=== PATIENT | female | born 1945 | race Caucasian/White ===

== ENCOUNTER 2017-09-22 08:58 | Outpatient (RCR) | payer MEDICARE, SELFPAY ==
[2017-09-22 14:46] VITALS: BP 141/83; PULSE 102; RESP 20; TEMP 36.2; BMI 35.4
--- NOTE | 2017-09-22 18:46 | PCM.WC.HP ---
(1) Spinal stenosis of lumbar region with radiculopathy Status: Chronic Current Visit: Yes Code(s): M48.061 - Spinal stenosis, lumbar region without neurogenic claudication; M54.16 - Radiculopathy, lumbar region (2) PAD (peripheral artery disease) Status: Chronic Current Visit: Yes Code(s): I73.9 - Peripheral vascular disease, unspecified (3) Venous stasis ulcer of left lower leg with edema of left lower leg Status: Chronic Current Visit: Yes Code(s): I83.892 - Varicose veins of left lower extremity with other complications; I83.028 - Varicose veins of left lower extremity with ulcer other part of lower leg; R60.9 - Edema, unspecified (4) Venous stasis ulcer of right lower leg with edema of right lower leg Status: Chronic Current Visit: Yes Code(s): I83.891 - Varicose veins of right lower extremity with other complications; I83.018 - Varicose veins of right lower extremity with ulcer other part of lower leg; R60.9 - Edema, unspecified (5) Arthralgia Status: Chronic Current Visit: Yes Qualifiers: Joint pain location: unspecified Qualified Code(s): M25.50 - Pain in unspecified joint Code(s): M25.50 - Pain in unspecified joint (6) Myalgia Status: Chronic Current Visit: Yes Code(s): M79.1 - Myalgia (7) Mass of soft tissue of left lower extremity Status: Chronic Current Visit: Yes Code(s): R22.42 - Localized swelling, mass and lump, left lower limb Comment: left inner upper thigh - ? calciphylaxis vs. erythema nodosum vs. dermatomyositis vs. panniculitis (8) Mass of soft tissue of right lower extremity Status: Chronic Current Visit: Yes Code(s): R22.41 - Localized swelling, mass and lump, right lower limb Comment: right inner upper thigh - ? calciphylaxis vs. erythema nodosum vs. dermatomyositis vs. panniculitis (9) Type 2 diabetes mellitus Status: Chronic Current Visit: Yes Qualifiers: Diabetes mellitus complication status: with neurologic complications Diabetes mellitus complication detail: with polyneuropathy Diabetes mellitus assisted insulin use: without long term acute care registered nurse use Qualified Code(s): E11.42 - Type 2 diabetes mellitus with diabetic polyneuropathy Code(s): E11.9 - Type 2 diabetes mellitus without complications (10) Coumadin-induced coagulopathy Status: Chronic Current Visit: Yes (11) Chronic kidney disease, stage 3 Status: Chronic Current Visit: Yes History of Present Illness Date of Service: 09/22/17 Chief Complaint: Wounds/ulcers of b/l lower legs History of Wound: Di is a 71 yo female that presents for evaluation and treatment of lower extremity wounds/ulcers that have been present since June. She states that she developed swelling in her legs in April and has not been able to get this under control and in June she developed wounds/ulcers to her right leg and left leg as blisters developed and then opened. She has been seen by Dr. Pelaez, the ER and her PCP and has had several tests but the wounds/ulcers have not healed. She has had severe pain in the wounds and her legs since July. She has indurated areas on her inner thighs and across her right abdomen that are erythematous and tender. She denies being evaluated for any rheumatologic causes of these areas but does state that when she was in the ER in April that they told her that her calcium level was high and they advised her to decrease her calcium and vitamin D. She has been applying neosporin to the areas on her legs but has not been wearing compression. She tries to elevated her legs but has a lot of back pain due to her spinal stenosis. She was started on Clindamycin on 09/19/17 after being seen in the ER for her legs. She c/o severe pain out of proportion to her wounds/ulcers as well as the visualized areas of induration on her thighs and abdomen. Has tried hydrocodone-APAP and Oxycodone-APAP as given by the ER and her PCP without relief. She sees Dr. Carbajal for pain management for her spinal stenosis but has not taken any medication or needed medication for her pain in the past. Epidurals have been effective for her spinal stenosis and sciatica in the past. Denies fever or chills. Past Medical History Past Medical History: Chronic Problems Hypertension (Chronic) Type 2 diabetes mellitus (Chronic) Atrial fibrillation (Chronic) Lung nodule (Chronic) Coumadin-induced coagulopathy (Chronic) Chronic kidney disease, stage 3 (Chronic) 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 calciphylaxis vs. erythema nodosum vs. dermatomyositis vs. panniculitis Mass of soft tissue of right lower extremity (Chronic) right inner upper thigh - ? calciphylaxis vs. erythema nodosum vs. dermatomyositis vs. panniculitis Surgical History: cataract, cholecystectomy, hysterectomy, - - Cardioversion, lumpectomy, [place] fundoplication, multiple ablation procedures to heart Allergies/Adverse Reactions: Allergies amlodipine besylate [From Norvasc] Allergy (Verified 06/28/17 16:49) Unknown Shortness of breath ceftriaxone Allergy (Verified 06/28/17 16:49) Rash doxazosin mesylate [From Cardura] Allergy (Verified 06/28/17 16:49) Unknown Pt doesn't remember doxycycline Allergy (Verified 06/28/17 16:49) Unknown Pt doesn't remember enalapril maleate [From Vasotec] Allergy (Verified 06/28/17 16:49) Rash enalaprilat dihydrate [From Vasotec] Allergy (Verified 06/28/17 16:49) Rash hydroxyzine HCl [From Vistaril] Allergy (Verified 06/28/17 16:49) Rash hydroxyzine pamoate [From Vistaril] Allergy (Verified 06/28/17 16:49) Rash meperidine HCl [From Demerol] Allergy (Verified 06/28/17 16:49) Rash Sulfa (Sulfonamide Antibiotics) Allergy (Verified 06/28/17 16:49) Hives sulfamethoxazole [From Bactrim] Allergy (Verified 06/28/17 16:49) Hives trimethoprim [From Bactrim] Allergy (Verified 06/28/17 16:49) Hives Home Medications: Ambulatory Orders Medication Instructions Recorded Metformin HCl [Glucophage] 500 mg PO DAILY 09/09/15 Metoprolol Tartrate [Lopressor 12.5 mg PO BID #90 tablet 11/06/15 (beta alok)] Aspirin [Adult Low Dose Aspirin EC] 81 mg PO DAILY 03/03/17 Warfarin [Coumadin] 2 mg PO SUWETHFRSA 03/03/17 Furosemide [Lasix] 20 mg PO QODAY 06/22/17 Clindamycin [Cleocin] 300 mg PO 4X/DAY #80 capsule 09/19/17 Oxycodone HCl/Acetaminophen 1 tablet PO Q6H PRN PRN #12 tablet 09/19/17 [Percocet 5/325] - Family History Maternal No pertinent history Paternal No pertinent history Lives: Spouse/ Significant Other Smoking Status: Never smoker Tobacco Use: Non-smoker Alcohol: None Drugs: None Review of Systems Constitutional: Reports: Weakness, Fatigue. Denies: Chills, Fever, Weight Change Eyes: Denies: Pain, Vision Change HEENT: Reports: Difficulty Hearing Cardiovascular: Reports: Palpitations Respiratory: Denies: Cough, Shortness of Breath Gastrointestinal: Denies: Diarrhea, Nausea, Vomiting Genitourinary: Reports: Incontinence Musculoskeletal: Reports: Back Pain, Joint Pain, Joint stiffness, Leg Pain, Muscle pain Skin: Reports: Rash, Skin Changes, Wounds Neurological: Reports: Numbness. Denies: Focal weakness Endocrine: Denies: Heat/ Cold Intolerance, Polydipsia, Polyuria Hematologic/ Lymphatic: Reports: Easy Bruising - Physical Exam Vital Signs Temp Pulse Resp BP 97.1 F L 102 H 20 H 141/83 H 09/22/17 14:46 09/22/17 14:46 09/22/17 14:46 09/22/17 14:46 General: Alert, Oriented x3, Cooperative, No apparent distress HEENT: Atraumatic, Normocephalic Oral: Moist Mucosa Neck: Supple Lungs: Clear to auscultation Cardiovascular: No murmurs, Irregular Rate Abdomen: Soft, Obese, - - lower abdomen, indurated, erythematous soft tissue that is tender to palpation - ?panniculitis vs. calciphylaxis vs. dermatomyositis Extremities: Cool, Diminished Peripheral Pulses, Edema, Tenderness, - - indurated, erythematous subcutaneous masses b/l upper thighs Skin: Ulcer/ Wound, Rash Present Wound Measurements and Assessment WC - Nurse 1 - General Ulcer Measurement Start: 09/22/17 13:49 Freq: Status: Active Protocol: Activity Type Activity Date Activity User E-Sign Co-Sign Detail Recorded Client Recorded Date Recorded By Document 09/22/17 14:46 MW [id number] 09/22/17 15:06 MW 09/22/17 14:46 Wound Center Nurse 1 [Ulcer Assessment Protocol: WC.WD.LOC] #2 Left calf -Combined with other wound No -Current Size (cm) - Length 0.5 -Current Size (cm) - Width 0.5 -Current Size (cm) - Depth 0.1 -Total Square Cm 0.25 -Photo Taken No -Epithelialization None Present -Tunneling No -Undermining/Tunneling No -Circular Undermining No -Exudate Amt None Present (0 %) -Wound Margin Flat & Intact -Granulation Amt Small (1-33%) -Granulation Quality Red -Slough/Fibrin Yes -Necrosis Amt Small (1-33%) -Necrotic Tissue Type Adherent Slough -Structure Exposed N/A -Texture (Gabriella-wound Skin Appearance) Assessed Localized Edema -Moisture (Gabriella-wound Skin Appearance Assessed ) Dry/Scaly -Color (Gabriella-wound Skin Appearance) Assessed Rubor -Temperature (Gabriella-wound Skin No Abnormality Appearance) (Pt Warm) -Tenderness on Palpation (Gabriella-wound No Skin Appearance) -Ulcer Cleansing Rinsed/ Irrigated with Saline -Foul Odor after Cleansing No -Anesthetic Used 4% Lidocaine Solution #1 RIGHT MEDIAL LE CLUSTER -Combined with other wound No -Current Size (cm) - Length 5.5 -Current Size (cm) - Width 3.5 -Current Size (cm) - Depth 0.1 -Total Square Cm 19.25 -Date of Last Picture (Recall this 09/22/17 field) -Photo Taken Yes -Epithelialization None Present -Tunneling No -Undermining/Tunneling No -Circular Undermining No -Exudate Amt None Present (0 %) -Wound Margin Flat & Intact -Granulation Amt None Present (0 %) -Granulation Quality N/A -Slough/Fibrin No -Necrosis Amt Large (67-100%) -Necrotic Tissue Type Adherent Slough -Structure Exposed N/A -Texture (Gabriella-wound Skin Appearance) Assessed Localized Edema -Moisture (Gabriella-wound Skin Appearance Assessed ) Dry/Scaly -Color (Gabriella-wound Skin Appearance) No Abnormality Rubor -Temperature (Gabriella-wound Skin No Abnormality Appearance) (Pt Warm) -Tenderness on Palpation (Gabriella-wound No Skin Appearance) -Ulcer Cleansing Rinsed/ Irrigated with Saline -Foul Odor after Cleansing No -Anesthetic Used 4% Lidocaine Solution [Edema Assessment] -Lower Limb Edema Present Yes -Right Calf (cm) 38.9 -Right Ankle (cm) 23.6 -Left Calf (cm) 39.0 -Left Ankle (cm) 24.0 WC - Nurse 2 - General Ulcer CM Notes Start: 09/22/17 13:49 Freq: Status: Active Protocol: Activity Type Activity Date Activity User E-Sign Co-Sign Detail Recorded Client Recorded Date Recorded By Document 09/22/17 16:23 TM [id number] 09/22/17 16:34 TM Document 09/22/17 16:55 TM [id number] 09/22/17 16:59 TM 09/22/17 09/22/17 16:23 16:55 Wound Center Nurse 2 [Procedure/Treatment] #2 Left calf -Time 16:55 -Correct Patient Yes -Correct Side, Site, Position Yes -Correct Procedure Yes -Procedure Performed Yes -Post Debridement Size (cm) - Length 0.5 -Post Debridement Size (cm) - Width 0.5 -Post Debridement Size (cm) - Depth 0.1 -Total Square Cm 0.25 -Wound/Ulcer Outcome Not Healed -Ulcer Cleansing Rinsed/ Irrigated with Saline -Foul Odor after Cleansing No -Bioengineered Tissue No -Cetacaine [place] No -Topical Lidocaine (%) 5 -Bleeding Controlled with Pressure -Other No debridement today -Treatment Response Procedure Tolerated Well #1 RIGHT MEDIAL LE CLUSTER -Time 16:25 16:56 -Correct Patient Yes Yes -Correct Side, Site, Position Yes Yes -Correct Procedure Yes Yes -Procedure Performed Yes Yes -Type of Procedure Debridement Debridement -Clinical Debridement Subcutaneous Subcutaneous -Post Debridement Size (cm) - Length 5.6 5.6 -Post Debridement Size (cm) - Width 3.6 3.6 -Post Debridement Size (cm) - Depth 0.1 0.1 -Total Square Cm 20.16 20.16 -Wound/Ulcer Outcome Not Healed Not Healed -Ulcer Cleansing Rinsed/ Rinsed/ Irrigated with Irrigated with Saline Saline -Foul Odor after Cleansing No No -Bioengineered Tissue No No -Cetacaine [place] No No -Topical Lidocaine (%) 5 5 -Bleeding Controlled with Pressure Pressure -Treatment Response Procedure Procedure Not Tolerated Well Tolerated Well [See Physician Procedure note for Specifics] Pain Scale: 0-10 Numeric [Pain] -Is Patient Pain Free? Yes Yes Musculoskeletal: Arthritic Changes, Tenderness Psych/Mental Status: Normal Affect, Appropriate Debridement Note Post-Debridement Measurements/Treatment WC - Nurse 2 - General Ulcer CM Notes Start: 09/22/17 13:49 Freq: Status: Active Protocol: Activity Type Activity Date Activity User E-Sign Co-Sign Detail Recorded Client Recorded Date Recorded By Document 09/22/17 16:23 [id number] 09/22/17 16:34 TM Document 09/22/17 16:55 [id number] 09/22/17 16:59 TM 09/22/17 09/22/17 16:23 16:55 Wound Center Nurse 2 #2 Left calf -Time 16:55 -Correct Patient Yes -Correct Side, Site, Position Yes -Correct Procedure Yes -Procedure Performed Yes -Post Debridement Size (cm) - Length 0.5 -Post Debridement Size (cm) - Width 0.5 -Post Debridement Size (cm) - Depth 0.1 -Total Square Cm 0.25 -Wound/Ulcer Outcome Not Healed -Ulcer Cleansing Rinsed/ Irrigated with Saline -Foul Odor after Cleansing No -Bioengineered Tissue No -Cetacaine [place] No -Topical Lidocaine (%) 5 -Bleeding Controlled with Pressure -Other No debridement today -Treatment Response Procedure Tolerated Well #1 RIGHT MEDIAL LE CLUSTER -Time 16:25 16:56 -Correct Patient Yes Yes -Correct Side, Site, Position Yes Yes -Correct Procedure Yes Yes -Procedure Performed Yes Yes -Type of Procedure Debridement Debridement -Clinical Debridement Subcutaneous Subcutaneous -Post Debridement Size (cm) - Length 5.6 5.6 -Post Debridement Size (cm) - Width 3.6 3.6 -Post Debridement Size (cm) - Depth 0.1 0.1 -Total Square Cm 20.16 20.16 -Wound/Ulcer Outcome Not Healed Not Healed -Ulcer Cleansing Rinsed/ Rinsed/ Irrigated with Irrigated with Saline Saline -Foul Odor after Cleansing No No -Bioengineered Tissue No No -Cetacaine [place] No No -Topical Lidocaine (%) 5 5 -Bleeding Controlled with Pressure Pressure -Treatment Response Procedure Procedure Not Tolerated Well Tolerated Well Pain Scale: 0-10 Numeric Is Patient Pain Free? Yes Yes Wound debrided: left calf Laterality: Left No debridement was completed today - Additional Wound Wound debrided: right medial LE cluster Laterality: Right Type of Debridement: Excisional debridement Anesthesia Used: 4% Lidocaine Solution, 5% Lidocaine Gel Depth: Down to and including healthy tissue, in the subcutaneous layer Percentage of wound debrided: 100 Instrument Used: 5mm curette Tissue Removed: yellow slough, devitalized tissue Severity: Fat Layer Exposed Amount of bleeding with debridement: Mild Bleeding Controlled with: Pressure Patient tolerated procedure: Patient did not tolerate procedure well - was very painful for patient, out of proportion to procedure Assessment/Plan Active Problems Type 2 diabetes mellitus (Chronic) Coumadin-induced coagulopathy (Chronic) Chronic kidney disease, stage 3 (Chronic) 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 calciphylaxis vs. erythema nodosum vs. dermatomyositis vs. panniculitis Mass of soft tissue of right lower extremity (Chronic) right inner upper thigh - ? calciphylaxis vs. erythema nodosum vs. dermatomyositis vs. panniculitis Assessment: venous ulcers of b/l LE due to venous insufficiency. ? calciphylaxis vs. erythema nodosum vs. dermatomyositis vs. panniculitis of abdomen and thighs b/l Plan: Di's wounds were evaluated and debrided today as well as the indurated areas present on her inner thighs and abdomen. Her pain is out of proportion to the extent of her wounds on exam. Her venous ulcers are very small in size and not very deep. She will complete course of clindamycin prescribed by ER. Will dress her wounds with Aquacel Ag and adaptic and use tubigrips for light compression. Last A1C was 6.5% 05/24/17. Labs ordered to evaluate for possible causes of her indurated areas on thighs and abdomen to r/o rheumatologic causes, other possibile things to consider would be early calciphylaxis or other vasculitis. Prescription given for Oxycodone 10 mg 1 orally every 4 hours PRN pain #60 to get her to her appointment with Dr. Carbajal on Monday. OARRS was appropriate and there are no signs of abuse or diversion. No further prescriptions for pain medications will be given to her from wound center per our policy. She has follow up with Dr. Pelaez end of September, follow up with Dr. Almonte in [address] Carbajal on Monday. Encouraged her to elevated legs as much as possible and call if increased drainage or changes in wounds. F/U in 1 week.
--- NOTE | 2017-09-22 19:10 | HP.PCM_ITS ---
(1) Spinal stenosis of lumbar region with radiculopathy Status: Chronic Current Visit: Yes Code(s): M48.061 - Spinal stenosis, lumbar region without neurogenic claudication; M54.16 - Radiculopathy, lumbar region (2) PAD (peripheral artery disease) Status: Chronic Current Visit: Yes Code(s): I73.9 - Peripheral vascular disease, unspecified (3) Venous stasis ulcer of left lower leg with edema of left lower leg Status: Chronic Current Visit: Yes Code(s): I83.892 - Varicose veins of left lower extremity with other complications; I83.028 - Varicose veins of left lower extremity with ulcer other part of lower leg; R60.9 - Edema, unspecified (4) Venous stasis ulcer of right lower leg with edema of right lower leg Status: Chronic Current Visit: Yes Code(s): I83.891 - Varicose veins of right lower extremity with other complications; I83.018 - Varicose veins of right lower extremity with ulcer other part of lower leg; R60.9 - Edema, unspecified (5) Arthralgia Status: Chronic Current Visit: Yes Qualifiers: Joint pain location: unspecified Qualified Code(s): M25.50 - Pain in unspecified joint Code(s): M25.50 - Pain in unspecified joint (6) Myalgia Status: Chronic Current Visit: Yes Code(s): M79.1 - Myalgia (7) Mass of soft tissue of left lower extremity Status: Chronic Current Visit: Yes Code(s): R22.42 - Localized swelling, mass and lump, left lower limb Comment: left inner upper thigh - ? calciphylaxis vs. erythema nodosum vs. dermatomyositis vs. panniculitis (8) Mass of soft tissue of right lower extremity Status: Chronic Current Visit: Yes Code(s): R22.41 - Localized swelling, mass and lump, right lower limb Comment: right inner upper thigh - ? calciphylaxis vs. erythema nodosum vs. dermatomyositis vs. panniculitis (9) Type 2 diabetes mellitus Status: Chronic Current Visit: Yes Qualifiers: Diabetes mellitus complication status: with neurologic complications Diabetes mellitus complication detail: with polyneuropathy Diabetes mellitus alf insulin use: without intermediate project manager use Qualified Code(s): E11.42 - Type 2 diabetes mellitus with diabetic polyneuropathy Code(s): E11.9 - Type 2 diabetes mellitus without complications (10) Coumadin-induced coagulopathy Status: Chronic Current Visit: Yes (11) Chronic kidney disease, stage 3 Status: Chronic Current Visit: Yes History of Present Illness Date of Service: 09/22/17 Chief Complaint: Wounds/ulcers of b/l lower legs History of Wound: Di is a 71 yo female that presents for evaluation and treatment of lower extremity wounds/ulcers that have been present since June. She states that she developed swelling in her legs in April and has not been able to get this under control and in June she developed wounds/ ulcers to her right leg and left leg as blisters developed and then opened. She has been seen by Dr. Pelaez, the ER and her PCP and has had several tests but the wounds/ulcers have not healed. She has had severe pain in the wounds and her legs since July. She has indurated areas on her inner thighs and across her right abdomen that are erythematous and tender. She denies being evaluated for any rheumatologic causes of these areas but does state that when she was in the ER in April that they told her that her calcium level was high and they advised her to decrease her calcium and vitamin D. She has been applying neosporin to the areas on her legs but has not been wearing compression. She tries to elevated her legs but has a lot of back pain due to her spinal stenosis. She was started on Clindamycin on 09/19/17 after being seen in the ER for her legs. She c/o severe pain out of proportion to her wounds/ulcers as well as the visualized areas of induration on her thighs and abdomen. Has tried hydrocodone-APAP and Oxycodone-APAP as given by the ER and her PCP without relief. She sees Dr. Carbajal for pain management for her spinal stenosis but has not taken any medication or needed medication for her pain in the past. Epidurals have been effective for her spinal stenosis and sciatica in the past. Denies fever or chills. Past Medical History Past Medical History: Chronic Problems Hypertension (Chronic) Type 2 diabetes mellitus (Chronic) Atrial fibrillation (Chronic) Lung nodule (Chronic) Coumadin-induced coagulopathy (Chronic) Chronic kidney disease, stage 3 (Chronic) 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 calciphylaxis vs. erythema nodosum vs. dermatomyositis vs. panniculitis Mass of soft tissue of right lower extremity (Chronic) right inner upper thigh - ? calciphylaxis vs. erythema nodosum vs. dermatomyositis vs. panniculitis Surgical History: cataract, cholecystectomy, hysterectomy, - - Cardioversion, lumpectomy, [place] fundoplication, multiple ablation procedures to heart Allergies/Adverse Reactions: Allergies amlodipine besylate [From Norvasc] Allergy (Verified 06/28/17 16:49) Unknown Shortness of breath ceftriaxone Allergy (Verified 06/28/17 16:49) Rash doxazosin mesylate [From Cardura] Allergy (Verified 06/28/17 16:49) Unknown Pt doesn't remember doxycycline Allergy (Verified 06/28/17 16:49) Unknown Pt doesn't remember enalapril maleate [From Vasotec] Allergy (Verified 06/28/17 16:49) Rash enalaprilat dihydrate [From Vasotec] Allergy (Verified 06/28/17 16:49) Rash hydroxyzine HCl [From Vistaril] Allergy (Verified 06/28/17 16:49) Rash hydroxyzine pamoate [From Vistaril] Allergy (Verified 06/28/17 16:49) Rash meperidine HCl [From Demerol] Allergy (Verified 06/28/17 16:49) Rash Sulfa (Sulfonamide Antibiotics) Allergy (Verified 06/28/17 16:49) Hives sulfamethoxazole [From Bactrim] Allergy (Verified 06/28/17 16:49) Hives trimethoprim [From Bactrim] Allergy (Verified 06/28/17 16:49) Hives Home Medications: Ambulatory Orders Medication Instructions Recorded Metformin HCl [Glucophage] 500 mg PO DAILY 09/09/15 Metoprolol Tartrate [Lopressor 12.5 mg PO BID #90 tablet 11/06/15 (beta alok)] Aspirin [Adult Low Dose Aspirin EC] 81 mg PO DAILY 03/03/17 Warfarin [Coumadin] 2 mg PO SUWETHFRSA 03/03/17 Furosemide [Lasix] 20 mg PO QODAY 06/22/17 Clindamycin [Cleocin] 300 mg PO 4X/DAY #80 capsule 09/19/17 Oxycodone HCl/Acetaminophen 1 tablet PO Q6H PRN PRN #12 tablet 09/19/17 [Percocet 5/325] - Family History Maternal No pertinent history Paternal No pertinent history Lives: Spouse/ Significant Other Smoking Status: Never smoker Tobacco Use: Non-smoker Alcohol: None Drugs: None Review of Systems Constitutional: Reports: Weakness, Fatigue. Denies: Chills, Fever, Weight Change Eyes: Denies: Pain, Vision Change HEENT: Reports: Difficulty Hearing Cardiovascular: Reports: Palpitations Respiratory: Denies: Cough, Shortness of Breath Gastrointestinal: Denies: Diarrhea, Nausea, Vomiting Genitourinary: Reports: Incontinence Musculoskeletal: Reports: Back Pain, Joint Pain, Joint stiffness, Leg Pain, Muscle pain Skin: Reports: Rash, Skin Changes, Wounds Neurological: Reports: Numbness. Denies: Focal weakness Endocrine: Denies: Heat/ Cold Intolerance, Polydipsia, Polyuria Hematologic/ Lymphatic: Reports: Easy Bruising - Physical Exam Vital Signs Temp Pulse Resp BP 97.1 F L 102 H 20 H 141/83 H 09/22/17 14:46 09/22/17 14:46 09/22/17 14:46 09/22/17 14:46 General: Alert, Oriented x3, Cooperative, No apparent distress HEENT: Atraumatic, Normocephalic Oral: Moist Mucosa Neck: Supple Lungs: Clear to auscultation Cardiovascular: No murmurs, Irregular Rate Abdomen: Soft, Obese, - - lower abdomen, indurated, erythematous soft tissue that is tender to palpation - ?panniculitis vs. calciphylaxis vs. dermatomyositis Extremities: Cool, Diminished Peripheral Pulses, Edema, Tenderness, - - indurated, erythematous subcutaneous masses b/l upper thighs Skin: Ulcer/ Wound, Rash Present Wound Measurements and Assessment WC - Nurse 1 - General Ulcer Measurement Start: 09/22/17 13:49 Freq: Status: Active Protocol: Activity Type Activity Date Activity User E-Sign Co-Sign Detail Recorded Client Recorded Date Recorded By Document 09/22/17 14:46 MW [id number] 09/22/17 15:06 MW 09/22/17 14:46 Wound Center Nurse 1 [Ulcer Assessment Protocol: WC.WD.LOC] #2 Left calf -Combined with other wound No -Current Size (cm) - Length 0.5 -Current Size (cm) - Width 0.5 -Current Size (cm) - Depth 0.1 -Total Square Cm 0.25 -Photo Taken No -Epithelialization None Present -Tunneling No -Undermining/Tunneling No -Circular Undermining No -Exudate Amt None Present (0 %) -Wound Margin Flat & Intact -Granulation Amt Small (1-33%) -Granulation Quality Red -Slough/Fibrin Yes -Necrosis Amt Small (1-33%) -Necrotic Tissue Type Adherent Slough -Structure Exposed N/A -Texture (Gabriella-wound Skin Appearance) Assessed Localized Edema -Moisture (Gabriella-wound Skin Appearance Assessed ) Dry/Scaly -Color (Gabriella-wound Skin Appearance) Assessed Rubor -Temperature (Gabriella-wound Skin No Abnormality Appearance) (Pt Warm) -Tenderness on Palpation (Gabrielal-wound No Skin Appearance) -Ulcer Cleansing Rinsed/ Irrigated with Saline -Foul Odor after Cleansing No -Anesthetic Used 4% Lidocaine Solution #1 RIGHT MEDIAL LE CLUSTER -Combined with other wound No -Current Size (cm) - Length 5.5 -Current Size (cm) - Width 3.5 -Current Size (cm) - Depth 0.1 -Total Square Cm 19.25 -Date of Last Picture (Recall this 09/22/17 field) -Photo Taken Yes -Epithelialization None Present -Tunneling No -Undermining/Tunneling No -Circular Undermining No -Exudate Amt None Present (0 %) -Wound Margin Flat & Intact -Granulation Amt None Present (0 %) -Granulation Quality N/A -Slough/Fibrin No -Necrosis Amt Large (67-100%) -Necrotic Tissue Type Adherent Slough -Structure Exposed N/A -Texture (Gabriella-wound Skin Appearance) Assessed Localized Edema -Moisture (Gabriella-wound Skin Appearance Assessed ) Dry/Scaly -Color (Gabriella-wound Skin Appearance) No Abnormality Rubor -Temperature (Gabriella-wound Skin No Abnormality Appearance) (Pt Warm) -Tenderness on Palpation (Gabriella-wound No Skin Appearance) -Ulcer Cleansing Rinsed/ Irrigated with Saline -Foul Odor after Cleansing No -Anesthetic Used 4% Lidocaine Solution [Edema Assessment] -Lower Limb Edema Present Yes -Right Calf (cm) 38.9 -Right Ankle (cm) 23.6 -Left Calf (cm) 39.0 -Left Ankle (cm) 24.0 WC - Nurse 2 - General Ulcer CM Notes Start: 09/22/17 13:49 Freq: Status: Active Protocol: Activity Type Activity Date Activity User E-Sign Co-Sign Detail Recorded Client Recorded Date Recorded By Document 09/22/17 16:23 TM [id number] 09/22/17 16:34 TM Document 09/22/17 16:55 TM [id number] 09/22/17 16:59 TM 09/22/17 09/22/17 16:23 16:55 Wound Center Nurse 2 [Procedure/Treatment] #2 Left calf -Time 16:55 -Correct Patient Yes -Correct Side, Site, Position Yes -Correct Procedure Yes -Procedure Performed Yes -Post Debridement Size (cm) - Length 0.5 -Post Debridement Size (cm) - Width 0.5 -Post Debridement Size (cm) - Depth 0.1 -Total Square Cm 0.25 -Wound/Ulcer Outcome Not Healed -Ulcer Cleansing Rinsed/ Irrigated with Saline -Foul Odor after Cleansing No -Bioengineered Tissue No -Cetacaine Bixby No -Topical Lidocaine (%) 5 -Bleeding Controlled with Pressure -Other No debridement today -Treatment Response Procedure Tolerated Well #1 RIGHT MEDIAL LE CLUSTER -Time 16:25 16:56 -Correct Patient Yes Yes -Correct Side, Site, Position Yes Yes -Correct Procedure Yes Yes -Procedure Performed Yes Yes -Type of Procedure Debridement Debridement -Clinical Debridement Subcutaneous Subcutaneous -Post Debridement Size (cm) - Length 5.6 5.6 -Post Debridement Size (cm) - Width 3.6 3.6 -Post Debridement Size (cm) - Depth 0.1 0.1 -Total Square Cm 20.16 20.16 -Wound/Ulcer Outcome Not Healed Not Healed -Ulcer Cleansing Rinsed/ Rinsed/ Irrigated with Irrigated with Saline Saline -Foul Odor after Cleansing No No -Bioengineered Tissue No No -Cetacaine Bixby No No -Topical Lidocaine (%) 5 5 -Bleeding Controlled with Pressure Pressure -Treatment Response Procedure Procedure Not Tolerated Well Tolerated Well [See Physician Procedure note for Specifics] Pain Scale: 0-10 Numeric [Pain] -Is Patient Pain Free? Yes Yes Musculoskeletal: Arthritic Changes, Tenderness Psych/Mental Status: Normal Affect, Appropriate Debridement Note Post-Debridement Measurements/Treatment WC - Nurse 2 - General Ulcer CM Notes Start: 09/22/17 13:49 Freq: Status: Active Protocol: Activity Type Activity Date Activity User E-Sign Co-Sign Detail Recorded Client Recorded Date Recorded By Document 09/22/17 16:23 [id number] 09/22/17 16:34 TM Document 09/22/17 16:55 [id number] 09/22/17 16:59 TM 09/22/17 09/22/17 16:23 16:55 Wound Center Nurse 2 #2 Left calf -Time 16:55 -Correct Patient Yes -Correct Side, Site, Position Yes -Correct Procedure Yes -Procedure Performed Yes -Post Debridement Size (cm) - Length 0.5 -Post Debridement Size (cm) - Width 0.5 -Post Debridement Size (cm) - Depth 0.1 -Total Square Cm 0.25 -Wound/Ulcer Outcome Not Healed -Ulcer Cleansing Rinsed/ Irrigated with Saline -Foul Odor after Cleansing No -Bioengineered Tissue No -Cetacaine Bixby No -Topical Lidocaine (%) 5 -Bleeding Controlled with Pressure -Other No debridement today -Treatment Response Procedure Tolerated Well #1 RIGHT MEDIAL LE CLUSTER -Time 16:25 16:56 -Correct Patient Yes Yes -Correct Side, Site, Position Yes Yes -Correct Procedure Yes Yes -Procedure Performed Yes Yes -Type of Procedure Debridement Debridement -Clinical Debridement Subcutaneous Subcutaneous -Post Debridement Size (cm) - Length 5.6 5.6 -Post Debridement Size (cm) - Width 3.6 3.6 -Post Debridement Size (cm) - Depth 0.1 0.1 -Total Square Cm 20.16 20.16 -Wound/Ulcer Outcome Not Healed Not Healed -Ulcer Cleansing Rinsed/ Rinsed/ Irrigated with Irrigated with Saline Saline -Foul Odor after Cleansing No No -Bioengineered Tissue No No -Cetacaine Bixby No No -Topical Lidocaine (%) 5 5 -Bleeding Controlled with Pressure Pressure -Treatment Response Procedure Procedure Not Tolerated Well Tolerated Well Pain Scale: 0-10 Numeric Is Patient Pain Free? Yes Yes Wound debrided: left calf Laterality: Left No debridement was completed today - Additional Wound Wound debrided: right medial LE cluster Laterality: Right Type of Debridement: Excisional debridement Anesthesia Used: 4% Lidocaine Solution, 5% Lidocaine Gel Depth: Down to and including healthy tissue, in the subcutaneous layer Percentage of wound debrided: 100 Instrument Used: 5mm curette Tissue Removed: yellow slough, devitalized tissue Severity: Fat Layer Exposed Amount of bleeding with debridement: Mild Bleeding Controlled with: Pressure Patient tolerated procedure: Patient did not tolerate procedure well - was very painful for patient, out of proportion to procedure Assessment/Plan Active Problems Type 2 diabetes mellitus (Chronic) Coumadin-induced coagulopathy (Chronic) Chronic kidney disease, stage 3 (Chronic) 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 calciphylaxis vs. erythema nodosum vs. dermatomyositis vs. panniculitis Mass of soft tissue of right lower extremity (Chronic) right inner upper thigh - ? calciphylaxis vs. erythema nodosum vs. dermatomyositis vs. panniculitis Assessment: venous ulcers of b/l LE due to venous insufficiency. ? calciphylaxis vs. erythema nodosum vs. dermatomyositis vs. panniculitis of abdomen and thighs b/l Plan: iD's wounds were evaluated and debrided today as well as the indurated areas present on her inner thighs and abdomen. Her pain is out of proportion to the extent of her wounds on exam. Her venous ulcers are very small in size and not very deep. She will complete course of clindamycin prescribed by ER. Will dress her wounds with Aquacel Ag and adaptic and use tubigrips for light compression. Last A1C was 6.5% 05/24/17. Labs ordered to evaluate for possible causes of her indurated areas on thighs and abdomen to r/ o rheumatologic causes, other possibile things to consider would be early calciphylaxis or other vasculitis. Prescription given for Oxycodone 10 mg 1 orally every 4 hours PRN pain #60 to get her to her appointment with Dr. Carbajal on Monday. OARRS was appropriate and there are no signs of abuse or diversion. No further prescriptions for pain medications will be given to her from wound center per our policy. She has follow up with Dr. Pelaez end of September, follow up with Dr. Almonte in [address] Carbajal on Monday. Encouraged her to elevated legs as much as possible and call if increased drainage or changes in wounds. F/U in 1 week.
== END 2017-09-24 23:59 ==
LOC: WC 08:58
PROVIDERS: Family Provider Internal Medicine; PCP Internal Medicine; Visit Provider Family Medicine
DX: E11.622 Type 2 diabetes mellitus with other skin ulcer (principal); E11.42 Type 2 diabetes mellitus with diabetic polyneuropathy; E11.22 Type 2 diabetes mellitus with diabetic chronic kidney disease; I12.9 Hypertensive chronic kidney disease with stage 1 through stage 4 chronic kidney disease, or unspecified chronic kidney disease; N18.3 Chronic kidney disease, stage 3 (moderate); I83.022 Varicose veins of left lower extremity with ulcer of calf; L97.222 Non-pressure chronic ulcer of left calf with fat layer exposed; M48.061 Spinal stenosis, lumbar region without neurogenic claudication; I83.018 Varicose veins of right lower extremity with ulcer other part of lower leg; L97.812 Non-pressure chronic ulcer of other part of right lower leg with fat layer exposed; E11.51 Type 2 diabetes mellitus with diabetic peripheral angiopathy without gangrene; R60.0 Localized edema; Z79.01 Long term (current) use of anticoagulants; I48.2 Chronic atrial fibrillation; R91.1 Solitary pulmonary nodule; Z79.82 Long term (current) use of aspirin; Z79.899 Other long term (current) drug therapy; Z79.84 Long term (current) use of oral hypoglycemic drugs
CPT/HCPCS: 11042; 11045; 99213; G0463

== ENCOUNTER 2017-09-29 15:51 | Inpatient (IN) | payer MEDICARE, SELFPAY ==
[2017-09-29 15:51] VITALS: BP 138/76; PULSE 91; RESP 16; TEMP 36.2; O2SAT 98; BMI 34.8
[2017-09-29] MEDS: oxyCODONE 5 MG Tablet 10 MG PO (17:53)
[2017-09-29 17:55] VITALS: BP 132/70; PULSE 80; RESP 14; O2SAT 99
[2017-09-29 18:01] LABS: Absolute Lymphocyte Count 1.34 X10^3/ul (0.83-4.51); Absolute Neutrophil Count 2.9 X10^3/uL (2.0-7.7); Basophil# 0.01 X10^3/uL; Basophil% 0.2 % (0-1); Eosinophil# 0.04 X10^3/uL; Eosinophils% 0.8 % (0-5); Hematocrit 30.6 % (37-47); Hemoglobin 9.4 g/dl (12.0-15.0); Lymphocyte # 1.34 X10^3/ul (4.0); Lymphocyte % 25.2 % (19-41); Mean Corp Hgb Conc 30.7 g/gl (32-36); Mean Corpuscular Hgb 21.9 pg (27.0-32.0); Mean Corpuscular Volume 71.2 fL (81-99); Mean Platelet Vol. 10.1 fl (6.2-12.0); Monocyte% 18.8 % (0-10); Neutrophil # 2.92 X10^3/uL (2.7-7.7); Platelet Count 220 K/mm3 (150-450); RBC Distribution Width CV 18.8 % (11.6-14.6); RBC Distribution Width SD 48.6 fl (35.1-43.9); White Blood Count 5.3 K/mm3 (4.4-11.0)
[2017-09-29 18:04] LABS: Differential Indicated SCAN CRITERIA MET; POSITIVE COUNT NO; POSITIVE DIFFERENTIAL NO; POSITIVE MORPHOLOGY YES
--- NOTE | 2017-09-29 18:05 | US_ITS ---
STUDY: VENOUS DOPPLER ULTRASOUND - BILATERAL LOWER EXTREMITIES REASON FOR EXAM: Female, 71 years old. bilateral swelling. TECHNIQUE: Ultrasound evaluation of the deep vein system to include smith-scale imaging and compression was performed. Smith-scale imaging and Doppler sonographic evaluation, including duplex spectral analysis and qualitative color flow sonography, was performed. COMPARISON: None. FINDINGS: RIGHT LEG Common Femoral Vein: Normal compression, spontaneity and augmentation. Normal color Doppler. Common Femoral Vein/Greater Saphenous Junction: Normal compression, spontaneity and augmentation. Normal color Doppler. Deep Femoral Vein: Normal compression, spontaneity and augmentation. Normal color Doppler. Superficial Femoral Proximal: Normal compression, spontaneity and augmentation. Normal color Doppler. Superficial Femoral Middle: Normal compression, spontaneity and augmentation. Normal color Doppler. Superficial Femoral Distal: Normal compression, spontaneity and augmentation. Normal color Doppler. Popliteal Vein: Normal compression, spontaneity and augmentation. Normal color Doppler. Posterior Tibial Vein: Normal compression. Normal color Doppler. Peroneal Vein: Normal compression. Normal color Doppler. There is no demonstrated deep venous thrombosis. LEFT LEG Common Femoral Vein: Normal compression, spontaneity and augmentation. Normal color Doppler. Common Femoral Vein/Greater Saphenous Junction: Normal compression, spontaneity and augmentation. Normal color Doppler. Deep Femoral Vein: Normal compression, spontaneity and augmentation. Normal color Doppler. Superficial Femoral Proximal: Normal compression, spontaneity and augmentation. Normal color Doppler. Superficial Femoral Middle: Normal compression, spontaneity and augmentation. Normal color Doppler. Superficial Femoral Distal: Normal compression, spontaneity and augmentation. Normal color Doppler. Popliteal Vein: Normal compression, spontaneity and augmentation. Normal color Doppler. Posterior Tibial Vein: Normal compression. Normal color Doppler. Peroneal Vein: Normal compression. Normal color Doppler. There is no demonstrated deep venous thrombosis. US/Venous Duplex Imag/Jairo Extrem IMPRESSION: No DVT identified. Electronically Signed: Jennifer Antoine MD at 16:31 EST Tel , Service support ,
[2017-09-29 18:07] LABS: Anion Gap 8 (5-15); BUN 19 mg/dL (7-18); BUN/Creat Ratio 12.3 RATIO (10-20); Chloride 109 mmol/L (98-107); Creatinine, Serum 1.54 mg/dL (0.55-1.02); EST Glomerular Filtration Rate 35 mL/min (>60); Est Glom Filt Rate - Afr Amer 43 mL/min (>60); Estimated Creatinine Clearance 28.12 ml/min; Glucose 93 mg/dL (70-110); Potassium 3.7 mmol/L (3.5-5.1); Sodium Level 142 mmol/L (136-145)
[2017-09-29 18:19] LABS: International Normalized Ratio 3.3
[2017-09-29 18:42] LABS: Reactive Lymphocyte RARE
[2017-09-29 18:43] LABS: Anisocytosis 1+; Hypochromasia 2+; Microcytosis 3+; Platelet Estimate ADEQUATE (ADEQ); Polychromasia RARE
[2017-09-29 19:03] VITALS: BP 128/75; PULSE 91; RESP 14; O2SAT 99
[2017-09-29] MEDS: Gabapentin 100 MG Capsule PO (19:08)
[2017-09-29 19:12] VITALS: BP 122/80; PULSE 80; RESP 14; O2SAT 98
--- NOTE | 2017-09-29 19:25 | ED.DCSUM_ITS ---
- ER Visit Summary Date of Service: 09/29/17 Chief Complaint: Cellulitis History of Present Illness: The patient is a 71 F with chronic venous ulcer to the right lower extremity since June. She has had noted increased redness and swelling to both lower legs. Patient was sent down for pain management physician's office due to increasing redness and swelling, not improving on Keflex. Patient was seen here in the emergency room in late August and followed up in the wound center a few days later. Patient states in the wound center they scraped the wound edges and place a dressing on the wound. She is to follow-up with them next week. She has not noted any fever. Physical Examination: Vital signs are unremarkable. Patient is afebrile. Head neck examination is normal. Heart is regular rate and rhythm. Lungs are clear. Abdomen is soft nontender. Lower extremity examination reveals 2+ bilateral lower extremity edema with mild erythema and warmth. She has what appears to be chronic venous ulcers to the medial right lower extremity without sign of secondary acute infection. A skin tear noted of the posterior left lower extremity. Strong pulses are noted throughout. Test Results: CBC was normal white count. Hemoglobin is 9.4. Chemistry studies reveal BUN 19 creatinine 1.54. This is improved when compared to her priors. INR is supratherapeutic at 3.3. Her pain management physician asked that we get venous Dopplers of her legs which were done and normal. Emergency Department Course and Treatment: Patient was ordered a dose of IV clindamycin after I evaluated her. On final, repeat evaluation I advised her that she been placed on clindamycin when she was here in the emergency room in late August. She states this is actually the antibiotic that she is still on , not Keflex as previously reported. Patient states her primary concern is the pain that she has in her legs. I will admit her for antibiotics, but patient will require probable wrapping to her legs and better pain control. Treatment Plan: [] Disposition: Admit Impression: 1. Cellulitis bilateral lower extremities, failed outpatient management 2. Bilateral leg pain This note was generated with [facility] dictation software. It may contain incorrect words, spelling, and punctuation that were not noted in review of the chart prior to signing ED Disposition - Plan for ED Patient: Chief Complaint: Cellulitis Referrals: Aaron Tidwell MD [Primary Care Provider] -
[2017-09-29 21:07] VITALS: BP 132/74; PULSE 81; RESP 14; O2SAT 97
--- NOTE | 2017-09-29 21:15 | PCM.HP.STD ---
Problem List (1) Cellulitis Status: Acute (2) Arthralgia Status: Chronic Qualifiers: Joint pain location: unspecified Qualified Code(s): M25.50 - Pain in unspecified joint (3) Chronic diastolic (congestive) heart failure Status: Chronic (4) History of maze procedure Status: Chronic (5) Hypertension Status: Chronic (6) senior care current use of anticoagulant Status: Chronic History of Present Illness Date of Admission: 09/29/17 Chief Complaint: Bilateral cellulitis The patient is a 71 year old female w/ h/o DMII, HTN and lower extremity wounds / ulcers admitted for bilateral lower extremity cellulitis. She has been having swelling and pain in both her legs since April. She has been evaluated by wound care and vascular. She has severe lower extremity pain. Pain is persistent. Nothing made it better or worse. Pain lasts for hours and is episodic. Pain is not associated with any other symptoms. She goes to wound clinics for management of her wound. She was advise to go to the ED for further workup. 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 calciphylaxis vs. erythema nodosum vs. dermatomyositis vs. panniculitis Mass of soft tissue of right lower extremity (Chronic) right inner upper thigh - ? calciphylaxis vs. erythema nodosum vs. dermatomyositis vs. panniculitis Allergies amlodipine besylate [From [facility]] Allergy (Verified 09/29/17 15:55) Unknown Shortness of breath ceftriaxone Allergy (Verified 09/29/17 15:55) Rash doxazosin mesylate [From Cardura] Allergy (Verified 09/29/17 15:55) Unknown Pt doesn't remember doxycycline Allergy (Verified 09/29/17 15:55) Unknown Pt doesn't remember enalapril maleate [From Vasotec] Allergy (Verified 09/29/17 15:55) Rash enalaprilat dihydrate [From Vasotec] Allergy (Verified 09/29/17 15:55) Rash hydroxyzine HCl [From Vistaril] Allergy (Verified 09/29/17 15:55) Rash hydroxyzine pamoate [From Vistaril] Allergy (Verified 09/29/17 15:55) Rash meperidine HCl [From Demerol] Allergy (Verified 09/29/17 15:55) Rash Sulfa (Sulfonamide Antibiotics) Allergy (Verified 09/29/17 15:55) Hives sulfamethoxazole [From Bactrim] Allergy (Verified 09/29/17 15:55) Hives trimethoprim [From Bactrim] Allergy (Verified 09/29/17 15:55) Hives Home Medications: Ambulatory Orders Medication Instructions Recorded Metformin HCl [Glucophage] 500 mg PO DAILY 09/09/15 Metoprolol Tartrate [Lopressor 12.5 mg PO BID #90 tablet 11/06/15 (beta alok)] Aspirin [Adult Low Dose Aspirin EC] 81 mg PO DAILY 03/03/17 Furosemide [Lasix] 20 mg PO QODAY 06/22/17 Clindamycin [Cleocin] 300 mg PO 4X/DAY #80 capsule 09/19/17 Oxycodone [Oxyir] 5 mg PO Q4H PRN PRN 09/26/17 warfarin 4 mg tablet 4 mg PO MOWEFR 09/28/17 Gabapentin [Neurontin] 100 mg PO 4X/DAY 09/29/17 Warfarin [Coumadin (PBKC)] 2 mg PO SUTUTHSA 09/29/17 Surgical History: cataract, cholecystectomy, hysterectomy, - Smoking Status: Never smoker - *Family History Maternal History Items: No pertinent history Paternal History Items: No pertinent history Review of Systems Constitutional: Denies: Chills, Fever, Weight Change HEENT: Reports: Nasal Congestion. Denies: Head Aches, Sinus Congestion, Sinus Drainage Cardiovascular: Denies: Chest Pain, Palpitations Respiratory: Denies: Cough, Shortness of breath at rest, Sputum production Gastrointestinal: Denies: Abdominal Pain, Nausea, Vomiting Genitourinary: Denies: Dysuria Musculoskeletal: Reports: Joint swelling, Joint Tenderness, Leg Pain, Muscle pain - Swelling with poorly demarcated borders noted.. Denies: Joint Pain Skin: Denies: Rash, Wounds Neurological: Denies: Numbness, Tingling, Focal weakness Psychiatric: Denies: Anxiety, Depression, Homicidal Ideations, Suicidal Ideations Hematologic/ Lymphatic: Denies: Easy Bruising, Easy Bleeding VTE Information - Inpt Only VTE Present on Admission: No VTE Mechan Device Prophylaxis: SCD's VTE Pharm Prophylaxis ordered?: Yes Patient Problems: Active and Suspected Problems (Last Updated 09/28/17 @ 08:55 by Romina Francisco) Cellulitis (Acute) - Physical Exam General: Alert, Oriented x3, Cooperative HEENT: Atraumatic, PERRLA, EOMI, Normocephalic Neck: Supple, No JVD, Negative Carotid Bruits Lungs: Clear to auscultation, Normal air movement Cardiovascular: Regular rate, No murmurs Abdomen: Bowel Sounds Present, Soft, Non Tender Extremities: No edema, Capillary Refill Less than 3 Seconds, - - 2+ edema Skin: Ulcer/ Wound - Bilateral lower extremity wound Musculoskeletal: No Tenderness to Palpation of Joints or Extremities Neurological: Cranial nerves II-XII grossly intact Psych/Mental Status: Normal Affect, Appropriate Vital Signs Temp Pulse Resp BP Pulse Ox 97.2 F L 81 14 132/74 H 97 09/29/17 15:51 09/29/17 21:07 09/29/17 21:07 09/29/17 21:07 09/29/17 21:07 Oxygen Delivery Method Room Air Weight: 89.2 kg Body Mass Index (BMI) 34.8 Finger Stick Blood Glucose 124 Laboratory Tests Past 24 Hrs 09/29/17 09/29/17 09/29/17 17:40 17:40 17:40 WBC 5.3 RBC 4.30 Hgb 9.4 L Hct 30.6 L MCV 71.2 L MCH 21.9 L MCHC 30.7 L RDW 18.8 H RDW Differential 48.6 H Plt Count 220 MPV 10.1 Immature Gran % (Auto) 0.000 Neut % (Auto) 55.0 Lymph % (Auto) 25.2 [place] % (Auto) 18.8 H Eos % (Auto) 0.8 Baso % (Auto) 0.2 Absolute Neuts (auto) 2.9 Absolute Lymphs (auto) 1.34 Total Counted Not Reportable Reactive Lymphocytes RARE Platelet Estimate ADEQUATE Polychromasia RARE Hypochromasia 2+ Anisocytosis 1+ Microcytosis 3+ PT 32.0 H INR 3.3 Sodium 142 Potassium 3.7 Chloride 109 H Carbon Dioxide 25.0 Anion Gap 8 BUN 19 H Creatinine 1.54 H Estim Creat Clear Calc 28.12 Est GFR (MDRD) Af Amer 43 L Est GFR (MDRD) Non-Af 35 L BUN/Creatinine Ratio 12.3 Glucose 93 Calcium 10.0 Assessment/Plan Active and Suspected Problems (Last Updated 09/28/17 @ 08:55 by Romina Francisco) Cellulitis (Acute) 71 year old female w/ h/o DMII, HTN and lower extremity wounds / ulcers admitted for bilateral lower extremity cellulitis. 1) Bilateral lower extremity cellulitis: Will start zosyn and vancomycin given failed outpt therapy. Likely can de-escalate antibiotics if cultures negative. Doppler likely negative for DVTs. Pain control. Wound care. 2) ROLF: Improving. Supportive are. Monitor. 3) HTN: Resume home meds. 4) Afib: C/w rate control. C/w coumadin. INR 3.3 5) Prophylaxis: Coumadin.
[2017-09-29] MEDS: oxyCODONE 5 MG Tablet PO (22:52)
[2017-09-29 23:39] VITALS: BP 138/68; PULSE 70; RESP 24; TEMP 36.7; O2SAT 94
[2017-09-29 23:41] VITALS: BMI 34.7
[2017-09-29 23:56] VITALS: BMI 34.7
[2017-09-30] VITALS (9 sets, daily range): BP systolic 110–138; BP diastolic 61–80; PULSE 64–86; RESP 16–20; TEMP 36.3–36.7; O2SAT 92–97
[2017-09-30] MEDS: 0.9% Normal Saline 1,000 ML 100 ML IV ×3 (00:08→20:24)
[2017-09-30] MEDS: Piperacil/Tazobactam 3.375 GM/50 ML ML IV ×4 (00:09→22:59)
[2017-09-30] MEDS: 0.9% NaCl Peripheral Flush Adult/Peds IV ×2 (00:39→20:24)
[2017-09-30] MEDS: Metoprolol Tartrate 25 MG Tablet 12.5 MG PO ×3 (00:48→22:59)
[2017-09-30] MEDS: oxyCODONE 5 MG Tablet PO ×5 (03:09→23:00)
--- NOTE | 2017-09-30 07:15 | PN_ITS ---
Patient Problems: Active and Suspected Problems (Last Updated 09/28/17 @ 08:55 by Romina Francisco) Cellulitis (Acute) Subjective: Patient seen and examined. She still complaining of pain in both lower extremities. Pain is chronic and has been going on since April. She denies any swelling in her legs and says redness is getting better. She denies any fever or chills, any cough or chest pain, any shortness of breath, any abdominal pain, any diarrhea vomiting. Review of systems otherwise negative. Objective: 71-year-old female with a past medical history of type 2 diabetes mellitus, hypertension and bilateral lower extremity chronic ulcers as well as a history of varicose veins in her lower extremities was admitted and is being managed for bilateral lower extremity cellulitis. She had been having swelling and pain in both lower extremities since April after she had ablation done for his A. fib. She has been followed up by wound care and vascular surgeon and also by pain management. She is currently being managed for cellulitis of bilateral lower extremities on IV Zosyn. Vitals/I&O's: Vital Signs Temp Pulse Resp BP Pulse Ox 98.0 F 72 16 118/63 92 09/30/17 04:14 09/30/17 04:14 09/30/17 04:14 09/30/17 04:14 09/30/17 04:14 Oxygen Delivery Method Room Air Weight: 195 lb 12.328 oz Body Mass Index (BMI) 34.7 General: Alert, Oriented x3, Cooperative, - - In mild distress due to pain HEENT: Atraumatic, PERRLA, EOMI, Normocephalic Oral: Moist Mucosa Neck: Supple, No JVD, Negative Carotid Bruits Lungs: Normal air movement, - - Has bilateral coarse crackles in all lung feldman. Patient is however saturating well and denies any shortness of breath. Cardiovascular: Regular rate, Regular Rhythm, Normal S1, Normal S2, No murmurs Abdomen: Bowel Sounds Present, Soft, Non Tender, Non-Distended, No Hepato- splenomegaly Extremities: No clubbing, No cyanosis, No edema, - - Has varicose veins on both lower extremities. Lower extremities tender bilaterally erythematous up to midshin, and firm to touch. No visible swelling. Has healing ulceration on the right calf which is crusted over. Appears to be a venous ulcer. Both lower extremities demarcated around area of redness up to medication. Last tenderness to palpation of lower extremities bilaterally. Skin: Ulcer/ Wound - As documented in extremity examination. Musculoskeletal: Tenderness - Tenderness to palpation of both lower extremities. Lymphatic: No Cervical, Supraclavicular, or Inguinal Adenopathy Neurological: Cranial nerves II-XII grossly intact, Motor Exam 5/5 strength throughout Psych/Mental Status: Restless - Due to pain from lower extremities., Alert and oriented to time, place, person, mood and affect Current Medications Aspirin (Ecotrin) 81 mg PO DAILY [facility] Dextrose (D50w Syringe) 0 gm IV X1 PRN; Protocol PRN Reason: Hypoglycemia Furosemide (Lasix) 20 mg PO QODAY [facility] Gabapentin (Neurontin) 100 mg PO 4X/DAY [facility] Glucagon () 1 mg IM .X1 PRN PRN Reason: Hypoglycemia Sodium Chloride () 1,000 mls @ 100 mls/hr IV .Q10H [facility] Last Admin: 09/30/17 00:08 Dose: 100 mls/hr Piperacillin Sod/Tazobactam Sod (Zosyn) 3.375 gm in 50 mls @ 12.5 mls/hr IV Q8 [facility] Last Admin: 09/30/17 05:44 Dose: 12.5 mls/hr Vancomycin HCl 1,250 mg/ (Dextrose) 275 mls @ 250 mls/hr IV Q72H [facility] Last Admin: 09/30/17 00:39 Dose: 250 mls/hr Metformin HCl (Glucophage) 500 mg PO DAILY [facility] Metoprolol Tartrate (Lopressor (Beta Brandt)) 12.5 mg PO BID [facility] Last Admin: 09/30/17 00:48 Dose: 12.5 mg Morphine Sulfate (Morphine) 2 mg IV Q4H PRN PRN PRN Reason: SEVERE PAIN (6-10/10) Last Admin: 09/30/17 04:53 Dose: 2 mg Oxycodone HCl (Oxyir) 10 mg PO Q4H PRN PRN PRN Reason: PAIN Oxycodone HCl (Oxyir) 5 mg PO Q4H PRN PRN PRN Reason: Moderate Pain (pain scale 4-5) Last Admin: 09/30/17 03:09 Dose: 5 mg Sodium Chloride () 5 - 30 ml IV UD PRN PRN Reason: SALINE FLUSH Last Admin: 09/30/17 00:39 Dose: 10 ml Warfarin Sodium (Coumadin (Pbkc)) 2 mg PO SuTuThSa@1700 [facility] Warfarin Sodium (Coumadin (Pbkc)) 4 mg PO MoWeFr@1700 [facility] PRN Reason: Protocol Assessment/Plan Active and Suspected Problems (Last Updated 09/28/17 @ 08:55 by Romina Francisco) Cellulitis (Acute) 3-year-old female with a past medical history of varicose veins of lower extremities and chronic ulcers of lower extremities been managed for cellulitis of bilateral lower extremities 1. Bilateral lower extremity cellulitis * Patient still complaining of severe pain in lower extremities. This pain is chronic and has been going on since April. Sees a pain management doctor for that. * No leukocytosis on labs today. No bands either. * Currently on IV vancomycin and IV Zosyn. * No evidence of pus formation, so we will stop IV vancomycin. We will continue IV Zosyn for now. * Duplex of lower extremities done. Report pending * Wound care on board.. 2. AK I on CKD * Resolving. Creatinine down to 1.45 from 1.5 on admission, which is her baseline. We will hydrate IV fluids and monitor. 3. Hypokalemia * Potassium is 3.2 today. Will will replace and monitor. * 4. Atrial fibrillation status post ablation * Currently rate controlled. * ChadVASC score: Approximately 3. On Coumadin. INR today is 3.1. On Coumadin 2 mg on Monday, Monday, and Monday and 4 mg on Monday, Monday and Monday. Will continue current dosage. * 5. Hypertension: Controlled. On metoprolol 12.5 mg twice daily. Will continue. 6. Diabetes type 2: On metformin 500 mg daily. Insulin sliding scale. Will continue. 7. Chronic pain syndrome: On gabapentin and oxycodone as well as morphine as needed. To follow-up with pain management upon discharge. 8. DVT prophylaxis: On Coumadin for A. fib as documented above. This note was generated with [employer] software. It may contain incorrect words, spelling, and punctuation that were not noted in checking the note before signing. Code Visit Inpatient E&M: 17054 [facility] L3
[2017-09-30] MEDS: oxyCODONE 5 MG Tablet 10 MG PO (08:00)
[2017-09-30 08:16] LABS: ALB/GLOB Ratio 0.7 RATIO (0.9-2.4); AST(SGOT) 24 U/L (15-37); Alanine Aminotransfer ALT/SGPT 17 U/L (12-78); Albumin, Serum 2.8 g/dL (3.4-5.0); Alkaline Phosphatase 63 U/L (45-117); Anion Gap 9 (5-15); BUN 18 mg/dL (7-18); BUN/Creat Ratio 12.4 RATIO (10-20); Calcium,Total 9.1 mg/dL (8.5-10.1); Chloride 108 mmol/L (98-107); Creatinine, Serum 1.45 mg/dL (0.55-1.02); EST Glomerular Filtration Rate 38 mL/min (>60); Est Glom Filt Rate - Afr Amer 46 mL/min (>60); Estimated Creatinine Clearance 29.86 ml/min; Globulin 4.1 g/dL (2.2-4.2); Glucose 93 mg/dL (70-110); Potassium 3.2 mmol/L (3.5-5.1); Protein, Total 6.9 g/dL (6.4-8.2); Sodium Level 141 mmol/L (136-145)
[2017-09-30 08:31] LABS: Hemoglobin 8.6 g/dl (12.0-15.0); Mean Corp Hgb Conc 30.7 g/gl (32-36); Mean Corpuscular Hgb 21.7 pg (27.0-32.0); Mean Corpuscular Volume 70.5 fL (81-99); Mean Platelet Vol. 10.6 fl (6.2-12.0); Platelet Count 207 K/mm3 (150-450); RBC Distribution Width SD 47.7 fl (35.1-43.9); Red Blood Count 3.97 M/mm3 (4.2-5.4); White Blood Count 5.4 K/mm3 (4.4-11.0)
[2017-09-30 08:50] LABS: International Normalized Ratio 3.1; Prothrombin Time (Protime)PT. 30.4 SECONDS (11.7-14.9); Scan Indicated on CBC? Y/N YES- FLAGS NOTED
[2017-09-30 09:22] LABS: Differential Comment SCANNED
[2017-09-30] MEDS: Gabapentin 100 MG Capsule PO ×4 (10:45→22:59)
[2017-09-30] MEDS: Aspirin E.C. 81 MG Tablet PO (10:45)
[2017-09-30 12:25] LABS: Bedside Glucose 161 mg/dL (70-110)
--- NOTE | 2017-09-30 12:56 | CASEMGMT ---
RN CM assessment complete. See attached link for complete assessment. Disposition Plan: Home Transition Planning/Care Coordination Needs: Patient [facility] for [facility]. PT/OT recommends return to prior level of care and patient's goal is to return home. RN CM will need to follow hospital course to determine final disposition and transition planning needs.
--- NOTE | 2017-09-30 14:28 | NURSING ---
1230 Dr notified of 1230 blood sugar. 161, po glucohage given. Mario Tillman RN
--- NOTE | 2017-09-30 14:30 | NURSING ---
[id number] called back no new orders regarding blood sugar will monitor. Mario Tillman RN
[2017-09-30 18:01] LABS: Bedside Glucose 114 mg/dL (70-110)
[2017-09-30] MEDS: Nystatin Powder 15gm Bottle 1 APPLIC TOPICAL (23:10)
[2017-09-30 23:15] LABS: Bedside Glucose 137 mg/dL (70-110)
[2017-10-01] VITALS (8 sets, daily range): BP systolic 111–151; BP diastolic 61–88; PULSE 80–89; RESP 15–18; TEMP 36.3–37.1; O2SAT 92–98
[2017-10-01] MEDS: oxyCODONE 5 MG Tablet PO ×5 (03:03→21:26)
[2017-10-01] MEDS: Piperacil/Tazobactam 3.375 GM/50 ML ML IV ×3 (05:00→21:26)
[2017-10-01] MEDS: 0.9% NaCl Peripheral Flush Adult/Peds IV ×3 (06:09→14:08)
[2017-10-01 06:20] LABS: Bedside Glucose 131 mg/dL (70-110)
[2017-10-01] MEDS: Aspirin E.C. 81 MG Tablet PO (08:30)
[2017-10-01] MEDS: Metoprolol Tartrate 25 MG Tablet 12.5 MG PO ×2 (08:31→21:27)
[2017-10-01] MEDS: Furosemide 20 MG Tablet PO (08:32)
[2017-10-01] MEDS: Gabapentin 100 MG Capsule PO ×4 (08:32→21:27)
[2017-10-01] MEDS: FLUoxetine 20 MG Capsule PO (08:33)
--- NOTE | 2017-10-01 09:26 | PCM.PN.HOSP ---
Patient Problems: Active and Suspected Problems (Last Updated 09/28/17 @ 08:55 by Romina Francisco) Cellulitis (Acute) Subjective: Patient seen and examined. She complains of pain in the lower extremities bilaterally. Pain is rated about 7/10 today. She denies any fever or chills, any shortness of breath, any chest pain, and abdominal pain, any diarrhea vomiting. Review of systems otherwise negative. Objective: 71-year-old female with a past medical history of type 2 diabetes mellitus, hypertension and bilateral lower extremity chronic ulcers as well as a history of varicose veins in her lower extremities was admitted and is being managed for bilateral lower extremity cellulitis. Wound care has been consulted and is here to see. She is on IV Zosyn. She has remained stable. Vitals/I&O's: Vital Signs Temp Pulse Resp BP Pulse Ox 98.1 F 80 16 111/62 96 10/01/17 08:49 10/01/17 08:49 10/01/17 08:49 10/01/17 08:49 10/01/17 08:49 Oxygen Delivery Method Room Air Weight: 195 lb 12.328 oz Body Mass Index (BMI) 34.7 Intake and Output for Last 24 Hours 09/29/17 09/30/17 10/01/17 23:59 23:59 23:59 Intake Total 2784 / 2784 376 / 376 Balance 2784 / 2784 376 / 376 General: Alert, Oriented x3, Cooperative HEENT: Atraumatic, PERRLA, EOMI, Normocephalic Oral: Moist Mucosa Neck: Supple, No JVD, Negative Carotid Bruits Lungs: Clear to auscultation, Normal air movement Cardiovascular: Regular rate, Regular Rhythm, Normal S1, Normal S2, No murmurs Abdomen: Bowel Sounds Present, Soft, Non Tender, Non-Distended, No Hepato-splenomegaly Extremities: - - Lower extremities wrapped in dressing. Distal pulses palpable. Skin: - - Ulcerations on christianson not visualized to be gross legs are wrapped and bandaged. Musculoskeletal: No Tenderness to Palpation of Joints or Extremities Lymphatic: No Cervical, Supraclavicular, or Inguinal Adenopathy Neurological: Cranial nerves II-XII grossly intact Psych/Mental Status: Normal Affect, Appropriate, Alert and oriented to time, place, person, mood and affect Laboratory Results 09/30/17 12:17: POC Glucose 161 H 09/30/17 17:48: POC Glucose 114 H 09/30/17 23:04: POC Glucose 137 H 10/01/17 06:14: POC Glucose 131 H Current Medications Aspirin (Ecotrin) 81 mg PO DAILY [facility] Last Admin: 10/01/17 08:30 Dose: 81 mg Dextrose (D50w Syringe) 0 gm IV X1 PRN; Protocol PRN Reason: Hypoglycemia Fluoxetine HCl (Prozac) 20 mg PO DAILY [facility] Last Admin: 10/01/17 08:33 Dose: 20 mg Furosemide (Lasix) 20 mg PO QODAY [facility] Last Admin: 10/01/17 08:32 Dose: 20 mg Gabapentin (Neurontin) 100 mg PO 4X/DAY [facility] Last Admin: 10/01/17 08:32 Dose: 100 mg Glucagon () 1 mg IM .X1 PRN PRN Reason: Hypoglycemia Piperacillin Sod/Tazobactam Sod (Zosyn) 3.375 gm in 50 mls @ 12.5 mls/hr IV Q8 [facility] Last Admin: 10/01/17 05:00 Dose: 12.5 mls/hr Metformin HCl (Glucophage) 500 mg PO DAILY@0800 [facility] Last Admin: 10/01/17 08:32 Dose: 500 mg Metoprolol Tartrate (Lopressor (Beta Brandt)) 12.5 mg PO BID [facility] Last Admin: 10/01/17 08:31 Dose: 12.5 mg Morphine Sulfate (Morphine) 2 mg IV Q4H PRN PRN PRN Reason: SEVERE PAIN (6-10/10) Last Admin: 10/01/17 06:09 Dose: 2 mg Nystatin (Mycostatin Powder) 1 applic TOPICAL BID [facility] PRN Reason: Protocol Last Admin: 09/30/17 23:10 Dose: 1 applicatio Oxycodone HCl (Oxyir) 5 - 10 mg PO Q4H PRN PRN PRN Reason: Moderate Pain (pain scale 4-5) Last Admin: 10/01/17 08:30 Dose: 10 mg Sodium Chloride () 5 - 30 ml IV UD PRN PRN Reason: SALINE FLUSH Last Admin: 10/01/17 06:09 Dose: 10 ml Warfarin Sodium (Coumadin (Pbkc)) 2 mg PO SuTuThSa@1700 [facility] Last Admin: 09/30/17 17:44 Dose: 2 mg Warfarin Sodium (Coumadin (Pbkc)) 4 mg PO MoWeFr@1700 [facility] PRN Reason: Protocol Assessment/Plan Active and Suspected Problems (Last Updated 09/28/17 @ 08:55 by Romina Francisco) Cellulitis (Acute) 71-year-old female with a past medical history of varicose veins of lower extremities and chronic ulcers of lower extremities been managed for cellulitis of bilateral lower extremities 1. Bilateral lower extremity cellulitis Stillcomplains of pain in the lower extremities. This is chronic pain though. Pain is rated at 7/10 today. Currently on IV Zosyn. Duplex of lower extremities was negative for any DVT. Wound care consulted. Will see tomorrow. 2. AK I on CKD Resolving. Creatinine down to 1.45 from 1.5 on admission, which is her baseline. We will hydrate IV fluids and monitor. 3. Hypokalemia Was 3.2 yesterday was replaced. Will check potassium level today. . 4. Atrial fibrillation status post ablation Currently rate controlled. ChadVASC score: Approximately 3. On Coumadin 2 mg on Monday, Monday, and Monday and 4 mg on Monday, Monday and Monday. INR today is 2.9. 5. Hypertension: Controlled. On metoprolol 12.5 mg twice daily. Will continue. 6. Diabetes type 2: On metformin 500 mg daily. Insulin sliding scale. 7. Chronic pain syndrome: On gabapentin and oxycodone as well as morphine as needed. To follow-up with pain management upon discharge. 8. DVT prophylaxis: On Coumadin for A. fib as documented above. This note was generated with [employer] dictation software. It may contain incorrect words, spelling, and punctuation that were not noted in checking the note before signing. Code Visit Inpatient E&M: 21395 [facility] L3
--- NOTE | 2017-10-01 09:31 | PN_ITS ---
Patient Problems: Active and Suspected Problems (Last Updated 09/28/17 @ 08:55 by Romina Francisco) Cellulitis (Acute) Subjective: Patient seen and examined. She complains of pain in the lower extremities bilaterally. Pain is rated about 7/10 today. She denies any fever or chills, any shortness of breath, any chest pain, and abdominal pain, any diarrhea vomiting. Review of systems otherwise negative. Objective: 71-year-old female with a past medical history of type 2 diabetes mellitus, hypertension and bilateral lower extremity chronic ulcers as well as a history of varicose veins in her lower extremities was admitted and is being managed for bilateral lower extremity cellulitis. Wound care has been consulted and is here to see. She is on IV Zosyn. She has remained stable. Vitals/I&O's: Vital Signs Temp Pulse Resp BP Pulse Ox 98.1 F 80 16 111/62 96 10/01/17 08:49 10/01/17 08:49 10/01/17 08:49 10/01/17 08:49 10/01/17 08:49 Oxygen Delivery Method Room Air Weight: 195 lb 12.328 oz Body Mass Index (BMI) 34.7 Intake and Output for Last 24 Hours 09/29/17 09/30/17 10/01/17 23:59 23:59 23:59 Intake Total 2784 / 2784 376 / 376 Balance 2784 / 2784 376 / 376 General: Alert, Oriented x3, Cooperative HEENT: Atraumatic, PERRLA, EOMI, Normocephalic Oral: Moist Mucosa Neck: Supple, No JVD, Negative Carotid Bruits Lungs: Clear to auscultation, Normal air movement Cardiovascular: Regular rate, Regular Rhythm, Normal S1, Normal S2, No murmurs Abdomen: Bowel Sounds Present, Soft, Non Tender, Non-Distended, No Hepato- splenomegaly Extremities: - - Lower extremities wrapped in dressing. Distal pulses palpable. Skin: - - Ulcerations on christianson not visualized to be gross legs are wrapped and bandaged. Musculoskeletal: No Tenderness to Palpation of Joints or Extremities Lymphatic: No Cervical, Supraclavicular, or Inguinal Adenopathy Neurological: Cranial nerves II-XII grossly intact Psych/Mental Status: Normal Affect, Appropriate, Alert and oriented to time, place, person, mood and affect Laboratory Results 09/30/17 12:17: POC Glucose 161 H 09/30/17 17:48: POC Glucose 114 H 09/30/17 23:04: POC Glucose 137 H 10/01/17 06:14: POC Glucose 131 H Current Medications Aspirin (Ecotrin) 81 mg PO DAILY [facility] Last Admin: 10/01/17 08:30 Dose: 81 mg Dextrose (D50w Syringe) 0 gm IV X1 PRN; Protocol PRN Reason: Hypoglycemia Fluoxetine HCl (Prozac) 20 mg PO DAILY [facility] Last Admin: 10/01/17 08:33 Dose: 20 mg Furosemide (Lasix) 20 mg PO QODAY [facility] Last Admin: 10/01/17 08:32 Dose: 20 mg Gabapentin (Neurontin) 100 mg PO 4X/DAY [facility] Last Admin: 10/01/17 08:32 Dose: 100 mg Glucagon () 1 mg IM .X1 PRN PRN Reason: Hypoglycemia Piperacillin Sod/Tazobactam Sod (Zosyn) 3.375 gm in 50 mls @ 12.5 mls/hr IV Q8 [facility] Last Admin: 10/01/17 05:00 Dose: 12.5 mls/hr Metformin HCl (Glucophage) 500 mg PO DAILY@0800 [facility] Last Admin: 10/01/17 08:32 Dose: 500 mg Metoprolol Tartrate (Lopressor (Beta Brandt)) 12.5 mg PO BID [facility] Last Admin: 10/01/17 08:31 Dose: 12.5 mg Morphine Sulfate (Morphine) 2 mg IV Q4H PRN PRN PRN Reason: SEVERE PAIN (6-10/10) Last Admin: 10/01/17 06:09 Dose: 2 mg Nystatin (Mycostatin Powder) 1 applic TOPICAL BID [facility] PRN Reason: Protocol Last Admin: 09/30/17 23:10 Dose: 1 applicatio Oxycodone HCl (Oxyir) 5 - 10 mg PO Q4H PRN PRN PRN Reason: Moderate Pain (pain scale 4-5) Last Admin: 10/01/17 08:30 Dose: 10 mg Sodium Chloride () 5 - 30 ml IV UD PRN PRN Reason: SALINE FLUSH Last Admin: 10/01/17 06:09 Dose: 10 ml Warfarin Sodium (Coumadin (Pbkc)) 2 mg PO SuTuThSa@1700 [facility] Last Admin: 09/30/17 17:44 Dose: 2 mg Warfarin Sodium (Coumadin (Pbkc)) 4 mg PO MoWeFr@1700 [facility] PRN Reason: Protocol Assessment/Plan Active and Suspected Problems (Last Updated 09/28/17 @ 08:55 by Romina Francisco) Cellulitis (Acute) 71-year-old female with a past medical history of varicose veins of lower extremities and chronic ulcers of lower extremities been managed for cellulitis of bilateral lower extremities 1. Bilateral lower extremity cellulitis * Stillcomplains of pain in the lower extremities. This is chronic pain though. Pain is rated at 7/10 today. * Currently on IV Zosyn. * Duplex of lower extremities was negative for any DVT. * Wound care consulted. Will see tomorrow. * * 2. AK I on CKD * Resolving. Creatinine down to 1.45 from 1.5 on admission, which is her baseline. We will hydrate IV fluids and monitor. 3. Hypokalemia * Was 3.2 yesterday was replaced. Will check potassium level today. * . * 4. Atrial fibrillation status post ablation * Currently rate controlled. * ChadVASC score: Approximately 3. On Coumadin 2 mg on Monday, Monday, and Monday and 4 mg on Monday, Monday and Monday. * Will check INR today * 5. Hypertension: Controlled. On metoprolol 12.5 mg twice daily. Will continue. 6. Diabetes type 2: On metformin 500 mg daily. Insulin sliding scale. 7. Chronic pain syndrome: On gabapentin and oxycodone as well as morphine as needed. To follow-up with pain management upon discharge. 8. DVT prophylaxis: On Coumadin for A. fib as documented above. This note was generated with [employer] dictation software. It may contain incorrect words, spelling, and punctuation that were not noted in checking the note before signing. Code Visit Inpatient E&M: 97463 Subs Hosp L3
[2017-10-01 10:14] LABS: Absolute Lymphocyte Count 1.56 X10^3/ul (0.83-4.51); Absolute Neutrophil Count 3.5 X10^3/uL (2.0-7.7); Basophil# 0.02 X10^3/uL; Basophil% 0.3 % (0-1); Eosinophil# 0.11 X10^3/uL; Eosinophils% 1.7 % (0-5); Hematocrit 30.7 % (37-47); Hemoglobin 9.3 g/dl (12.0-15.0); Lymphocyte # 1.56 X10^3/ul (4.0); Lymphocyte % 24.6 % (19-41); Mean Corp Hgb Conc 30.3 g/gl (32-36); Mean Corpuscular Hgb 21.8 pg (27.0-32.0); Mean Corpuscular Volume 72.1 fL (81-99); Mean Platelet Vol. 10.5 fl (6.2-12.0); Monocyte% 17.4 % (0-10); Neutrophil # 3.53 X10^3/uL (2.7-7.7); Neutrophil % 55.8 % (47-70); Platelet Count 197 K/mm3 (150-450); RBC Distribution Width CV 19.9 % (11.6-14.6); RBC Distribution Width SD 50.4 fl (35.1-43.9); Red Blood Count 4.26 M/mm3 (4.2-5.4); White Blood Count 6.3 K/mm3 (4.4-11.0)
[2017-10-01 10:16] LABS: Differential Indicated SCAN CRITERIA MET; POSITIVE COUNT NO; POSITIVE DIFFERENTIAL NO; POSITIVE MORPHOLOGY YES
[2017-10-01 10:24] LABS: International Normalized Ratio 2.9; Prothrombin Time (Protime)PT. 29.4 SECONDS (11.7-14.9)
[2017-10-01 10:34] LABS: Anion Gap 6 (5-15); BUN 17 mg/dL (7-18); BUN/Creat Ratio 9.7 RATIO (10-20); Calcium,Total 9.2 mg/dL (8.5-10.1); Chloride 109 mmol/L (98-107); Creatinine, Serum 1.76 mg/dL (0.55-1.02); EST Glomerular Filtration Rate 30 mL/min (>60); Est Glom Filt Rate - Afr Amer 37 mL/min (>60); Glucose 137 mg/dL (70-110); Potassium 3.8 mmol/L (3.5-5.1); Sodium Level 140 mmol/L (136-145)
[2017-10-01] MEDS: Nystatin Powder 15gm Bottle 1 APPLIC TOPICAL (10:47)
[2017-10-01 11:11] LABS: Bedside Glucose 119 mg/dL (70-110)
[2017-10-01 11:14] LABS: Differential Comment SCANNED
[2017-10-01 11:15] LABS: Anisocytosis 3+; Hypochromasia 1+; Microcytosis 2+; Poikilocytosis 1+; Polychromasia 1+
[2017-10-01 16:06] LABS: Bedside Glucose 118 mg/dL (70-110)
[2017-10-01 22:36] LABS: Bedside Glucose 116 mg/dL (70-110)
[2017-10-02] VITALS (9 sets, daily range): BP systolic 97–128; BP diastolic 49–76; PULSE 77–90; RESP 15–18; TEMP 36.7–36.9; O2SAT 93–98
[2017-10-02] MEDS: oxyCODONE 5 MG Tablet PO ×4 (02:27→21:55)
[2017-10-02] MEDS: Nystatin Powder 15gm Bottle 1 APPLIC TOPICAL ×3 (02:29→21:46)
[2017-10-02] MEDS: Piperacil/Tazobactam 3.375 GM/50 ML ML IV (05:58)
[2017-10-02 07:06] LABS: Bedside Glucose 102 mg/dL (70-110)
[2017-10-02] MEDS: FLUoxetine 20 MG Capsule PO (08:06)
[2017-10-02] MEDS: Aspirin E.C. 81 MG Tablet PO (08:06)
[2017-10-02] MEDS: Metoprolol Tartrate 25 MG Tablet 12.5 MG PO ×2 (08:06→21:53)
[2017-10-02] MEDS: Gabapentin 100 MG Capsule PO ×4 (08:07→21:53)
--- NOTE | 2017-10-02 11:24 | NURSING ---
wound photo: right medial lower leg
--- NOTE | 2017-10-02 11:25 | NURSING ---
wound photo: left posterior lower leg
[2017-10-02 12:01] LABS: Bedside Glucose 138 mg/dL (70-110)
--- NOTE | 2017-10-02 12:35 | PCM.PN.HOSP ---
Patient Problems: Active and Suspected Problems (Last Updated 09/28/17 @ 08:55 by Romina Francisco) Cellulitis (Acute) Subjective: Feels that swelling or redness in her legs are better. Still with pain in her lower extremities. Patient denies having history of pain in her lower extremities but states that she has had chronic edema in her lower extremities at least since April. Vitals/I&O's: Vital Signs Temp Pulse Resp BP Pulse Ox 36.7 C 78 18 128/76 H 98 10/02/17 07:52 10/02/17 08:06 10/02/17 07:52 10/02/17 07:52 10/02/17 07:52 Oxygen Delivery Method Room Air Weight: 88.8 kg Body Mass Index (BMI) 34.7 Intake and Output for Last 24 Hours 09/30/17 10/01/17 10/02/17 23:59 23:59 23:59 Intake Total 2784 / 2784 1476 / 1476 962 / 962 Output Total 200 / 200 1150 / 1150 Balance 2784 / 2784 1276 / 1276 -188 / -188 General: Alert, Cooperative, No apparent distress HEENT: Atraumatic, Normocephalic Neck: No Nodes, Thyroid Normal Size and Texture Lungs: Clear to auscultation, Normal air movement, No rhonchi Cardiovascular: Regular rate, Regular Rhythm, Normal S1, Normal S2 Abdomen: Bowel Sounds Present, Soft, Non Tender, Non-Distended Extremities: Edema - Bilaterally Skin: - - Bilateral lower extremity erythema without venous stasis dermatitis. Patient has some superficial ulcers on the posterior aspects of her legs bilaterally. Diffuse varicosities of her distal lower extremities as well as feet. Psych/Mental Status: Normal Affect, Appropriate Laboratory Results 10/01/17 16:00: POC Glucose 118 H 10/01/17 22:16: POC Glucose 116 H 10/02/17 06:43: POC Glucose 102 10/02/17 11:31: POC Glucose 138 H Current Medications Aspirin (Ecotrin) 81 mg PO DAILY [facility] Last Admin: 10/02/17 08:06 Dose: 81 mg Dextrose (D50w Syringe) 0 gm IV X1 PRN; Protocol PRN Reason: Hypoglycemia Fluoxetine HCl (Prozac) 20 mg PO DAILY [facility] Last Admin: 10/02/17 08:06 Dose: 20 mg Furosemide (Lasix) 20 mg PO QODAY [facility] Last Admin: 10/01/17 08:32 Dose: 20 mg Gabapentin (Neurontin) 100 mg PO 4X/DAY [facility] Last Admin: 10/02/17 08:07 Dose: 100 mg Glucagon () 1 mg IM .X1 PRN PRN Reason: Hypoglycemia Piperacillin Sod/Tazobactam Sod (Zosyn) 3.375 gm in 50 mls @ 12.5 mls/hr IV Q8 [facility] Last Admin: 10/02/17 05:58 Dose: 12.5 mls/hr Metformin HCl (Glucophage) 500 mg PO DAILY@0800 [facility] Last Admin: 10/02/17 08:07 Dose: 500 mg Metoprolol Tartrate (Lopressor (Beta Brandt)) 12.5 mg PO BID [facility] Last Admin: 10/02/17 08:06 Dose: 12.5 mg Morphine Sulfate (Morphine) 2 mg IV Q4H PRN PRN PRN Reason: SEVERE PAIN (6-10/10) Last Admin: 10/01/17 10:57 Dose: 2 mg Nystatin (Mycostatin Powder) 1 applic TOPICAL BID [facility] PRN Reason: Protocol Last Admin: 10/02/17 08:07 Dose: 1 applicatio Oxycodone HCl (Oxyir) 5 - 10 mg PO Q4H PRN PRN PRN Reason: Moderate Pain (pain scale 4-5) Last Admin: 10/02/17 10:51 Dose: 10 mg Sodium Chloride () 5 - 30 ml IV UD PRN PRN Reason: SALINE FLUSH Last Admin: 10/01/17 14:08 Dose: 10 ml Warfarin Sodium (Coumadin (Pbkc)) 2 mg PO SuTuThSa@1700 [facility] Last Admin: 10/01/17 17:02 Dose: 2 mg Warfarin Sodium (Coumadin (Pbkc)) 4 mg PO MoWeFr@1700 [facility] PRN Reason: Protocol Assessment/Plan Active and Suspected Problems (Last Updated 09/28/17 @ 08:55 by Romina Francisco) Cellulitis (Acute) 1. Bilateral lower extremity edema Resume this is right with the patient's known history of heart failure Notes improvement but I suspect this may relate with fact the patient has been in bed and patient does have lower extremity edema that seems to be more posterior on her legs. Will increase patient's Lasix from 20 to 40 mg twice daily and monitor. 2. Bilateral lower extremity erythema I am not convinced patient actually has cellulitis. Patient is a superficial ulcerations but honestly I do not feel that there is any actual infection. I will discontinue antibiotics and monitor. 3. Heart failure with 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 Her history. I will have a baseline echocardiogram to reflect this. Will request results from patient's gasoline finisher's office, Dr. Childers 4. Chronic atrial fibrillation Stable and anticoagulated on Coumadin. 5. DVT prophylaxis: Patient is on Coumadin.
--- NOTE | 2017-10-02 12:39 | PN_ITS ---
Patient Problems: Active and Suspected Problems (Last Updated 09/28/17 @ 08:55 by Romina Francisco) Cellulitis (Acute) Subjective: Feels that swelling or redness in her legs are better. Still with pain in her lower extremities. Patient denies having history of pain in her lower extremities but states that she has had chronic edema in her lower extremities at least since April. Vitals/I&O's: Vital Signs Temp Pulse Resp BP Pulse Ox 36.7 C 78 18 128/76 H 98 10/02/17 07:52 10/02/17 08:06 10/02/17 07:52 10/02/17 07:52 10/02/17 07:52 Oxygen Delivery Method Room Air Weight: 88.8 kg Body Mass Index (BMI) 34.7 Intake and Output for Last 24 Hours 09/30/17 10/01/17 10/02/17 23:59 23:59 23:59 Intake Total 2784 / 2784 1476 / 1476 962 / 962 Output Total 200 / 200 1150 / 1150 Balance 2784 / 2784 1276 / 1276 -188 / -188 General: Alert, Cooperative, No apparent distress HEENT: Atraumatic, Normocephalic Neck: No Nodes, Thyroid Normal Size and Texture Lungs: Clear to auscultation, Normal air movement, No rhonchi Cardiovascular: Regular rate, Regular Rhythm, Normal S1, Normal S2 Abdomen: Bowel Sounds Present, Soft, Non Tender, Non-Distended Extremities: Edema - Bilaterally Skin: - - Bilateral lower extremity erythema without venous stasis dermatitis. Patient has some superficial ulcers on the posterior aspects of her legs bilaterally. Diffuse varicosities of her distal lower extremities as well as feet. Psych/Mental Status: Normal Affect, Appropriate Laboratory Results 10/01/17 16:00: POC Glucose 118 H 10/01/17 22:16: POC Glucose 116 H 10/02/17 06:43: POC Glucose 102 10/02/17 11:31: POC Glucose 138 H Current Medications Aspirin (Ecotrin) 81 mg PO DAILY [facility] Last Admin: 10/02/17 08:06 Dose: 81 mg Dextrose (D50w Syringe) 0 gm IV X1 PRN; Protocol PRN Reason: Hypoglycemia Fluoxetine HCl (Prozac) 20 mg PO DAILY [facility] Last Admin: 10/02/17 08:06 Dose: 20 mg Furosemide (Lasix) 20 mg PO QODAY [facility] Last Admin: 10/01/17 08:32 Dose: 20 mg Gabapentin (Neurontin) 100 mg PO 4X/DAY [facility] Last Admin: 10/02/17 08:07 Dose: 100 mg Glucagon () 1 mg IM .X1 PRN PRN Reason: Hypoglycemia Piperacillin Sod/Tazobactam Sod (Zosyn) 3.375 gm in 50 mls @ 12.5 mls/hr IV Q8 [facility] Last Admin: 10/02/17 05:58 Dose: 12.5 mls/hr Metformin HCl (Glucophage) 500 mg PO DAILY@0800 [facility] Last Admin: 10/02/17 08:07 Dose: 500 mg Metoprolol Tartrate (Lopressor (Beta Brandt)) 12.5 mg PO BID [facility] Last Admin: 10/02/17 08:06 Dose: 12.5 mg Morphine Sulfate (Morphine) 2 mg IV Q4H PRN PRN PRN Reason: SEVERE PAIN (6-10/10) Last Admin: 10/01/17 10:57 Dose: 2 mg Nystatin (Mycostatin Powder) 1 applic TOPICAL BID [facility] PRN Reason: Protocol Last Admin: 10/02/17 08:07 Dose: 1 applicatio Oxycodone HCl (Oxyir) 5 - 10 mg PO Q4H PRN PRN PRN Reason: Moderate Pain (pain scale 4-5) Last Admin: 10/02/17 10:51 Dose: 10 mg Sodium Chloride () 5 - 30 ml IV UD PRN PRN Reason: SALINE FLUSH Last Admin: 10/01/17 14:08 Dose: 10 ml Warfarin Sodium (Coumadin (Pbkc)) 2 mg PO SuTuThSa@1700 [facility] Last Admin: 10/01/17 17:02 Dose: 2 mg Warfarin Sodium (Coumadin (Pbkc)) 4 mg PO MoWeFr@1700 [facility] PRN Reason: Protocol Assessment/Plan Active and Suspected Problems (Last Updated 09/28/17 @ 08:55 by Romina Francisco) Cellulitis (Acute) 1. Bilateral lower extremity edema Resume this is right with the patient's known history of heart failure Notes improvement but I suspect this may relate with fact the patient has been in bed and patient does have lower extremity edema that seems to be more posterior on her legs. Will increase patient's Lasix from 20 to 40 mg twice daily and monitor. 2. Bilateral lower extremity erythema I am not convinced patient actually has cellulitis. Patient is a superficial ulcerations but honestly I do not feel that there is any actual infection. I will discontinue antibiotics and monitor. 3. Heart failure with 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 Her history. I will have a baseline echocardiogram to reflect this. Will request results from patient's internet e commerce specialist's office, Dr. Childers 4. Chronic atrial fibrillation Stable and anticoagulated on Coumadin. 5. DVT prophylaxis: Patient is on Coumadin.
[2017-10-02 16:50] LABS: Bedside Glucose 115 mg/dL (70-110)
[2017-10-02] MEDS: Furosemide 40 MG/4 ML Vial IV (18:06)
[2017-10-02 22:16] LABS: Bedside Glucose 112 mg/dL (70-110)
[2017-10-03] VITALS (7 sets, daily range): BP systolic 116–128; BP diastolic 52–69; PULSE 69–91; RESP 18; TEMP 36.4–36.9; O2SAT 93–98
[2017-10-03] MEDS: 0.9% NaCl Peripheral Flush Adult/Peds IV (00:24)
[2017-10-03] MEDS: oxyCODONE 5 MG Tablet PO ×4 (03:01→21:10)
[2017-10-03 06:56] LABS: Absolute Lymphocyte Count 1.65 X10^3/ul (0.83-4.51); Absolute Neutrophil Count 3.5 X10^3/uL (2.0-7.7); Basophil# 0.03 X10^3/uL; Basophil% 0.5 % (0-1); Eosinophil# 0.11 X10^3/uL; Eosinophils% 1.7 % (0-5); Hematocrit 29.2 % (37-47); Hemoglobin 9.1 g/dl (12.0-15.0); Lymphocyte # 1.65 X10^3/ul (4.0); Lymphocyte % 25.8 % (19-41); Mean Corp Hgb Conc 31.2 g/gl (32-36); Mean Corpuscular Volume 70.7 fL (81-99); Mean Platelet Vol. 10.8 fl (6.2-12.0); Monocyte# 1.07 X10^3/uL; Monocyte% 16.7 % (0-10); Neutrophil # 3.53 X10^3/uL (2.7-7.7); Neutrophil % 55.1 % (47-70); Platelet Count 197 K/mm3 (150-450); RBC Distribution Width CV 19.8 % (11.6-14.6); RBC Distribution Width SD 48.2 fl (35.1-43.9); Red Blood Count 4.13 M/mm3 (4.2-5.4); White Blood Count 6.4 K/mm3 (4.4-11.0)
[2017-10-03 06:57] LABS: POSITIVE COUNT NO; POSITIVE DIFFERENTIAL NO; POSITIVE MORPHOLOGY NO
[2017-10-03 07:01] LABS: International Normalized Ratio 1.9; Prothrombin Time (Protime)PT. 20.6 SECONDS (11.7-14.9)
[2017-10-03 07:16] LABS: Bedside Glucose 105 mg/dL (70-110)
[2017-10-03 07:24] LABS: Anion Gap 11 (5-15); BUN 21 mg/dL (7-18); BUN/Creat Ratio 12.4 RATIO (10-20); Calcium,Total 9.5 mg/dL (8.5-10.1); Chloride 102 mmol/L (98-107); EST Glomerular Filtration Rate 32 mL/min (>60); Est Glom Filt Rate - Afr Amer 38 mL/min (>60); Estimated Creatinine Clearance 25.47 ml/min; Glucose 93 mg/dL (70-110); Potassium 3.1 mmol/L (3.5-5.1); Sodium Level 136 mmol/L (136-145)
[2017-10-03] MEDS: Furosemide 40 MG/4 ML Vial IV (08:44)
[2017-10-03] MEDS: Nystatin Powder 15gm Bottle 1 APPLIC TOPICAL ×2 (08:44→21:48)
[2017-10-03] MEDS: Aspirin E.C. 81 MG Tablet PO (08:44)
[2017-10-03] MEDS: FLUoxetine 20 MG Capsule PO (08:44)
[2017-10-03] MEDS: Metoprolol Tartrate 25 MG Tablet 12.5 MG PO ×2 (08:44→21:55)
[2017-10-03] MEDS: Gabapentin 100 MG Capsule PO ×4 (08:44→21:48)
[2017-10-03 12:21] LABS: Bedside Glucose 151 mg/dL (70-110)
--- NOTE | 2017-10-03 13:33 | NURSING ---
In to reassess the wounds to bilateral lower legs. there is no drainage noted on the old dressings. the thin black eschars to bilateral lower legs are dry and stable. there is slightly less redness noted to bilateral lower legs. Do not feel patient had cellulitis. legs are still quite painful. 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 can apply dry dressings if patient prefers after Dr Boinlla in to assess patient today.
--- NOTE | 2017-10-03 15:09 | PCM.PN.HOSP ---
Patient Problems: Active and Suspected Problems (Last Updated 09/28/17 @ 08:55 by Romina Francisco) Cellulitis (Acute) Subjective: Still of pain in her legs. Redness of her lower extremities has improved. Vitals/I&O's: Vital Signs Temp Pulse Resp BP Pulse Ox 36.9 C 91 18 124/52 H 98 10/03/17 14:11 10/03/17 14:11 10/03/17 14:11 10/03/17 14:11 10/03/17 14:11 Oxygen Delivery Method Room Air Weight: 88.8 kg Body Mass Index (BMI) 34.7 Intake and Output for Last 24 Hours 10/01/17 10/02/17 10/03/17 23:59 23:59 23:59 Intake Total 1476 / 1476 1061 / 1061 1210 / 1210 Output Total 200 / 200 1550 / 1550 3000 / 3000 Balance 1276 / 1276 -489 / -489 -1790 / -1790 General: Alert, Cooperative, No apparent distress, - - Became tearful at one point HEENT: Atraumatic, Normocephalic Neck: No Nodes, Thyroid Normal Size and Texture Lungs: Clear to auscultation, Normal air movement, No rhonchi, No wheeze Cardiovascular: Regular rate, Regular Rhythm, Normal S1, Normal S2 Extremities: Edema Skin: - - Diminished erythema bilateral lower extremities. Diffuse varicosities of lower extremities with exquisite tenderness to palpation. Psych/Mental Status: Anxious Microbiology Past 72 Hours 09/30/17 00:15 Blood Culture (Wb) - Left Wrist Blood Culture - Preliminary No growth in 48 hours. Laboratory Results 10/02/17 16:47: POC Glucose 115 H 10/02/17 22:03: POC Glucose 112 H 10/03/17 06:30: WBC 6.4, RBC 4.13 L, Hgb 9.1 L, Hct 29.2 L, MCV 70.7 L, MCH 22.0 L, MCHC 31.2 L, RDW 19.8 H, RDW Differential 48.2 H, Plt Count 197, MPV 10.8, Immature Gran % (Auto) 0.200, Neut % (Auto) 55.1, Lymph % (Auto) 25.8, Gates % (Auto) 16.7 H, Eos % (Auto) 1.7, Baso % (Auto) 0.5, Absolute Neuts (auto) 3.5, Absolute Lymphs (auto) 1.65, Total Counted Not Reportable 10/03/17 06:30: PT 20.6 H, INR 1.9 10/03/17 06:30: Sodium 136, Potassium 3.1 L, Chloride 102, Carbon Dioxide 23.0, Anion Gap 11, BUN 21 H, Creatinine 1.70 H, Estim Creat Clear Calc 25.47, Est GFR (MDRD) Af Amer 38 L, Est GFR (MDRD) Non-Af 32 L, BUN/Creatinine Ratio 12.4, Glucose 93, Calcium 9.5 10/03/17 06:36: POC Glucose 105 10/03/17 11:09: POC Glucose 151 H Current Medications Aspirin (Ecotrin) 81 mg PO DAILY [facility] Last Admin: 10/03/17 08:44 Dose: 81 mg Dextrose (D50w Syringe) 0 gm IV X1 PRN; Protocol PRN Reason: Hypoglycemia Fluoxetine HCl (Prozac) 20 mg PO DAILY [facility] Last Admin: 10/03/17 08:44 Dose: 20 mg Furosemide (Lasix) 40 mg IV BID@1000,1800 [facility] Last Admin: 10/03/17 08:44 Dose: 40 mg Gabapentin (Neurontin) 100 mg PO 4X/DAY [facility] Last Admin: 10/03/17 14:13 Dose: 100 mg Glucagon () 1 mg IM .X1 PRN PRN Reason: Hypoglycemia Metoprolol Tartrate (Lopressor (Beta Brandt)) 12.5 mg PO BID [facility] Last Admin: 10/03/17 08:44 Dose: 12.5 mg Morphine Sulfate (Morphine) 2 mg IV Q4H PRN PRN PRN Reason: SEVERE PAIN (6-10/10) Last Admin: 10/03/17 00:23 Dose: 2 mg Nystatin (Mycostatin Powder) 1 applic TOPICAL BID [facility] PRN Reason: Protocol Last Admin: 10/03/17 08:44 Dose: 1 applicatio Oxycodone HCl (Oxyir) 5 - 10 mg PO Q4H PRN PRN PRN Reason: Moderate Pain (pain scale 4-5) Last Admin: 10/03/17 14:13 Dose: 10 mg Sodium Chloride () 5 - 30 ml IV UD PRN PRN Reason: SALINE FLUSH Last Admin: 10/03/17 00:24 Dose: 10 ml Warfarin Sodium (Coumadin (Pbkc)) 2 mg PO SuTuThSa@1700 [facility] Last Admin: 10/01/17 17:02 Dose: 2 mg Warfarin Sodium (Coumadin (Pbkc)) 4 mg PO MoWeFr@1700 [facility] PRN Reason: Protocol Last Admin: 10/02/17 16:43 Dose: 4 mg Assessment/Plan Active and Suspected Problems (Last Updated 09/28/17 @ 08:55 by Romina Francisco) Cellulitis (Acute) 1. Bilateral lower extremity edema Resume this is right with the patient's known history of heart failure Still very edematous in the lower extremities. Patient did diurese well. I do not feel the daily weights are being accurately measured. We will change her Lasix over to 40 twice daily orally from IV and monitor. Will monitor patient's kidney function as patient does have chronic kidney disease stage III. 2. Bilateral lower extremity erythema I am not convinced patient actually has cellulitis. Patient is a superficial ulcerations but honestly I do not feel that there is any actual infection. I will discontinue antibiotics and monitor. Erythema is improved and that was after discontinuing the antibiotics and increasing diuretics. Therefore the again further validates that this is not cellulitis. Per the erythema may be related with superficial venous thrombosis. Patient's had numerous duplexes of her legs for DVTs which have all been negative. There is no mention of any superficial clots not sure of that was not evaluated or just not seen. 3. Heart failure with 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 Her history. I will have a baseline echocardiogram to reflect this. Will request results from patient's skein straightener's office, Dr. Childers Patient had an ejection fraction of 50% from 2015. 4. Chronic atrial fibrillation Stable and anticoagulated on Coumadin. 5. DVT prophylaxis: Patient is on Coumadin. Code Visit Inpatient E&M: 80730 Subs Hosp L2
--- NOTE | 2017-10-03 15:13 | PN_ITS ---
Patient Problems: Active and Suspected Problems (Last Updated 09/28/17 @ 08:55 by Romina Francisco) Cellulitis (Acute) Subjective: Still of pain in her legs. Redness of her lower extremities has improved. Vitals/I&O's: Vital Signs Temp Pulse Resp BP Pulse Ox 36.9 C 91 18 124/52 H 98 10/03/17 14:11 10/03/17 14:11 10/03/17 14:11 10/03/17 14:11 10/03/17 14:11 Oxygen Delivery Method Room Air Weight: 88.8 kg Body Mass Index (BMI) 34.7 Intake and Output for Last 24 Hours 10/01/17 10/02/17 10/03/17 23:59 23:59 23:59 Intake Total 1476 / 1476 1061 / 1061 1210 / 1210 Output Total 200 / 200 1550 / 1550 3000 / 3000 Balance 1276 / 1276 -489 / -489 -1790 / -1790 General: Alert, Cooperative, No apparent distress, - - Became tearful at one point HEENT: Atraumatic, Normocephalic Neck: No Nodes, Thyroid Normal Size and Texture Lungs: Clear to auscultation, Normal air movement, No rhonchi, No wheeze Cardiovascular: Regular rate, Regular Rhythm, Normal S1, Normal S2 Extremities: Edema Skin: - - Diminished erythema bilateral lower extremities. Diffuse varicosities of lower extremities with exquisite tenderness to palpation. Psych/Mental Status: Anxious Microbiology Past 72 Hours 09/30/17 00:15 Blood Culture (Wb) - Left Wrist Blood Culture - Preliminary No growth in 48 hours. Laboratory Results 10/02/17 16:47: POC Glucose 115 H 10/02/17 22:03: POC Glucose 112 H 10/03/17 06:30: WBC 6.4, RBC 4.13 L, Hgb 9.1 L, Hct 29.2 L, MCV 70.7 L, MCH 22.0 L, MCHC 31.2 L, RDW 19.8 H, RDW Differential 48.2 H, Plt Count 197, MPV 10.8, Immature Gran % (Auto) 0.200, Neut % (Auto) 55.1, Lymph % (Auto) 25.8, [place] % (Auto) 16.7 H, Eos % (Auto) 1.7, Baso % (Auto) 0.5, Absolute Neuts (auto ) 3.5, Absolute Lymphs (auto) 1.65, Total Counted Not Reportable 10/03/17 06:30: PT 20.6 H, INR 1.9 10/03/17 06:30: Sodium 136, Potassium 3.1 L, Chloride 102, Carbon Dioxide 23.0, Anion Gap 11, BUN 21 H, Creatinine 1.70 H, Estim Creat Clear Calc 25.47, Est GFR (MDRD) Af Amer 38 L, Est GFR (MDRD) Non-Af 32 L, BUN/Creatinine Ratio 12.4, Glucose 93, Calcium 9.5 10/03/17 06:36: POC Glucose 105 10/03/17 11:09: POC Glucose 151 H Current Medications Aspirin (Ecotrin) 81 mg PO DAILY [facility] Last Admin: 10/03/17 08:44 Dose: 81 mg Dextrose (D50w Syringe) 0 gm IV X1 PRN; Protocol PRN Reason: Hypoglycemia Fluoxetine HCl (Prozac) 20 mg PO DAILY [facility] Last Admin: 10/03/17 08:44 Dose: 20 mg Furosemide (Lasix) 40 mg IV BID@1000,1800 [facility] Last Admin: 10/03/17 08:44 Dose: 40 mg Gabapentin (Neurontin) 100 mg PO 4X/DAY [facility] Last Admin: 10/03/17 14:13 Dose: 100 mg Glucagon () 1 mg IM .X1 PRN PRN Reason: Hypoglycemia Metoprolol Tartrate (Lopressor (Beta Brandt)) 12.5 mg PO BID [facility] Last Admin: 10/03/17 08:44 Dose: 12.5 mg Morphine Sulfate (Morphine) 2 mg IV Q4H PRN PRN PRN Reason: SEVERE PAIN (6-10/10) Last Admin: 10/03/17 00:23 Dose: 2 mg Nystatin (Mycostatin Powder) 1 applic TOPICAL BID [facility] PRN Reason: Protocol Last Admin: 10/03/17 08:44 Dose: 1 applicatio Oxycodone HCl (Oxyir) 5 - 10 mg PO Q4H PRN PRN PRN Reason: Moderate Pain (pain scale 4-5) Last Admin: 10/03/17 14:13 Dose: 10 mg Sodium Chloride () 5 - 30 ml IV UD PRN PRN Reason: SALINE FLUSH Last Admin: 10/03/17 00:24 Dose: 10 ml Warfarin Sodium (Coumadin (Pbkc)) 2 mg PO SuTuThSa@1700 [facility] Last Admin: 10/01/17 17:02 Dose: 2 mg Warfarin Sodium (Coumadin (Pbkc)) 4 mg PO MoWeFr@1700 [facility] PRN Reason: Protocol Last Admin: 10/02/17 16:43 Dose: 4 mg Assessment/Plan Active and Suspected Problems (Last Updated 09/28/17 @ 08:55 by Romina Francisco) Cellulitis (Acute) 1. Bilateral lower extremity edema Resume this is right with the patient's known history of heart failure Still very edematous in the lower extremities. Patient did diurese well. I do not feel the daily weights are being accurately measured. We will change her Lasix over to 40 twice daily orally from IV and monitor. Will monitor patient' s kidney function as patient does have chronic kidney disease stage III. 2. Bilateral lower extremity erythema I am not convinced patient actually has cellulitis. Patient is a superficial ulcerations but honestly I do not feel that there is any actual infection. I will discontinue antibiotics and monitor. Erythema is improved and that was after discontinuing the antibiotics and increasing diuretics. Therefore the again further validates that this is not cellulitis. Per the erythema may be related with superficial venous thrombosis. Patient's had numerous duplexes of her legs for DVTs which have all been negative. There is no mention of any superficial clots not sure of that was not evaluated or just not seen. 3. Heart failure with 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 Her history. I will have a baseline echocardiogram to reflect this. 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 Childers Patient had an ejection fraction of 50% from 2015. 4. Chronic atrial fibrillation Stable and anticoagulated on Coumadin. 5. DVT prophylaxis: Patient is on Coumadin. Code Visit Inpatient E&M: 46718 Subs Hosp L2
[2017-10-03] MEDS: Furosemide 40 MG Tablet PO (17:20)
[2017-10-03 17:30] LABS: Bedside Glucose 133 mg/dL (70-110)
[2017-10-03 22:11] LABS: Bedside Glucose 98 mg/dL (70-110)
[2017-10-04 02:10] VITALS: BP 122/64; PULSE 90; RESP 18; TEMP 36.8; O2SAT 96
[2017-10-04] MEDS: oxyCODONE 5 MG Tablet PO ×3 (02:56→11:44)
[2017-10-04 06:15] LABS: Anion Gap 11 (5-15); BUN 22 mg/dL (7-18); BUN/Creat Ratio 14.3 RATIO (10-20); Calcium,Total 9.5 mg/dL (8.5-10.1); Chloride 98 mmol/L (98-107); Creatinine, Serum 1.54 mg/dL (0.55-1.02); EST Glomerular Filtration Rate 35 mL/min (>60); Est Glom Filt Rate - Afr Amer 43 mL/min (>60); Estimated Creatinine Clearance 28.12 ml/min; Glucose 102 mg/dL (70-110); Sodium Level 135 mmol/L (136-145)
[2017-10-04 06:16] LABS: International Normalized Ratio 1.8; Prothrombin Time (Protime)PT. 20.2 SECONDS (11.7-14.9)
[2017-10-04 07:01] LABS: Bedside Glucose 95 mg/dL (70-110)
[2017-10-04 08:10] VITALS: BP 100/52; PULSE 93; RESP 18; TEMP 36.9; O2SAT 99
[2017-10-04] MEDS: Furosemide 40 MG Tablet PO (09:45)
[2017-10-04] MEDS: Aspirin E.C. 81 MG Tablet PO (09:45)
[2017-10-04 09:46] VITALS: BP 100/52; PULSE 94
[2017-10-04] MEDS: Metoprolol Tartrate 25 MG Tablet 12.5 MG PO (09:46)
[2017-10-04] MEDS: Gabapentin 100 MG Capsule PO ×2 (09:47→13:34)
[2017-10-04] MEDS: Nystatin Powder 15gm Bottle 1 APPLIC TOPICAL (09:47)
[2017-10-04] MEDS: FLUoxetine 20 MG Capsule PO (09:48)
[2017-10-04 11:21] LABS: Bedside Glucose 148 mg/dL (70-110)
--- NOTE | 2017-10-04 11:25 | NURSING ---
wound photo: right lower leg
--- NOTE | 2017-10-04 11:26 | NURSING ---
wound photo: left posterior lower leg
--- NOTE | 2017-10-04 13:12 | PCM.WORK.EX ---
Work/School Excuse Work/School Excuse for:: Patient Please excuse this person from:: Work From: 09/29/17 through: 10/09/17
--- NOTE | 2017-10-04 13:13 | PCM.DC ---
- Discharge Diagnoses Current Active Problems: Current Active and Chronic Problems (Last Updated 09/28/17 @ 08:55 by Romina Francisco) Cellulitis (Acute) You will use the following diet at home:: Fluid restricted (specify 2000 mls, 1500 mls) - 1500 cc/day Your food should be the consistency of: Regular Your liquids should be the consistency of: Regular/Thin Discharge Activity: Return to Normal Activity Return to work on:: 10/09/17 Call your doctor if your incision/area has: Continuous Slow Oozing, Sudden Increased Bleeding, Increased Pain/ Swelling, Increased Redness Additional Instructions: Daily weights. Allergies/Adverse Reactions: Allergies amlodipine besylate [From Norvasc] Allergy (Verified 09/29/17 15:55) Unknown Shortness of breath ceftriaxone Allergy (Verified 09/29/17 15:55) Rash doxazosin mesylate [From Cardura] Allergy (Verified 09/29/17 15:55) Unknown Pt doesn't remember doxycycline Allergy (Verified 09/29/17 15:55) Unknown Pt doesn't remember enalapril maleate [From Vasotec] Allergy (Verified 09/29/17 15:55) Rash enalaprilat dihydrate [From Vasotec] Allergy (Verified 09/29/17 15:55) Rash hydroxyzine HCl [From Vistaril] Allergy (Verified 09/29/17 15:55) Rash hydroxyzine pamoate [From Vistaril] Allergy (Verified 09/29/17 15:55) Rash meperidine HCl [From Demerol] Allergy (Verified 09/29/17 15:55) Rash Sulfa (Sulfonamide Antibiotics) Allergy (Verified 09/29/17 15:55) Hives sulfamethoxazole [From Bactrim] Allergy (Verified 09/29/17 15:55) Hives trimethoprim [From Bactrim] Allergy (Verified 09/29/17 15:55) Hives Medications to take at Discharge Metoprolol Tartrate [Lopressor (beta alok)] 12.5 mg PO BID #90 tablet 11/06/15 Aspirin [Adult Low Dose Aspirin EC] 81 mg PO DAILY 03/03/17 Oxycodone [Oxyir] 5 mg PO Q4H PRN PRN 09/26/17 warfarin 4 mg tablet 4 mg PO MOWEFR 09/28/17 Gabapentin [Neurontin] 100 mg PO 4X/DAY 09/29/17 Warfarin [Coumadin] 2 mg PO SUTUTHSA 09/29/17 Fluoxetine [Prozac] 20 mg PO DAILY 09/30/17 Furosemide [Lasix] 40 mg PO DAILY #60 tab 10/04/17 The following prescriptions were given: Furosemide [Lasix] 40 mg PO DAILY #60 tab Primary Care Physician: Aaron Tidwell MD [Primary Care Provider] - Within 1 Week Proposed Discharge Date: 10/04/17
[2017-10-04 13:15] VITALS: BP 111/62; PULSE 82; RESP 18; TEMP 36.7; O2SAT 96
--- NOTE | 2017-10-04 13:16 | PCM.DC.SUM ---
Discharge Date and Diagnosis - Problem List Patient Problems: Active and Suspected Problems (Last Updated 09/28/17 @ 08:55 by Romina Francisco) Heart failure with 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 (Acute) Date of Admission: 09/29/17 Date of Discharge: 10/04/17 - Primary Discharge Diagnosis Active and Suspected Problems (Last Updated 09/28/17 @ 08:55 by Romina Francisco) Heart failure with 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 (Acute) Cellulitis (Acute) - Secondary Discharge Diagnosis Chronic Problems (Last Updated 09/28/17 @ 08:55 by Romina Francisco) assisted current use of anticoagulant (Chronic) Chronic atrial fibrillation (Chronic) Status post placement of implantable loop recorder (Chronic) History of maze procedure (Chronic) Other secondary pulmonary hypertension (Chronic) Chronic diastolic (congestive) heart failure (Chronic) Symptomatic anemia (Chronic) Hypertension (Chronic) Type 2 diabetes mellitus (Chronic) Lung nodule (Chronic) Chronic kidney disease, stage 3 (Chronic) 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 calciphylaxis vs. erythema nodosum vs. dermatomyositis vs. panniculitis Mass of soft tissue of right lower extremity (Chronic) right inner upper thigh - ? calciphylaxis vs. erythema nodosum vs. dermatomyositis vs. panniculitis Hospital Course and Treatment Consultations 09/30/17 23:55 Consult: Onc/Wound/designer Routine Comment: Reason for Consult:: EDIN LOWER EXT STASIS ULCERS Operations: None Procedures: None Summary of Care Provided: The patient is a 71 year old F patient admitted with pain and redness of her lower extremities. Concern was for cellulitis. By time I saw the patient discontinue the antibiotics and monitor the patient. Patient had edema of her lower extremities they were red blood cells bilateral and not concerning for cellulitis from my standpoint. Patient was monitored for 2 days afterwards and had no worsening of her erythema of her lower extremities and actually improved. Seems to be more consistent with venous stasis dermatitis with the redness. Patient's has been digitally in bed something that really help a lot of the redness overall. I discussed this with the patient. Patient's Lasix will be increased from 20 mg every other day to 40 mg daily and then additional dose as needed for weight gain 2 pounds in 1 day or 3 pounds in 1 week. Patient will be discharged home. Echo in the past showed an ejection fraction of 80%. Patient was on metformin as outpatient would discontinue that in light of the patient's heart failure. [] Discharge Diet: 2000 Calorie Control Diet, 6 Cup Fluid Restriction, 2000 mg Sodium Diet Discharge Activity: Return to Normal Activity Return to work on:: 10/09/17 Call your doctor if your incision/area has: Continuous Slow Oozing, Sudden Increased Bleeding, Increased Pain/ Swelling, Increased Redness Home Medications: Medications to take at Discharge Metoprolol Tartrate [Lopressor (beta alok)] 12.5 mg PO BID #90 tablet 11/06/15 Aspirin [Adult Low Dose Aspirin EC] 81 mg PO DAILY 03/03/17 Oxycodone [Oxyir] 5 mg PO Q4H PRN PRN 09/26/17 warfarin 4 mg tablet 4 mg PO MOWEFR 09/28/17 Gabapentin [Neurontin] 100 mg PO 4X/DAY 09/29/17 Warfarin [Coumadin] 2 mg PO SUTUTHSA 09/29/17 Fluoxetine [Prozac] 20 mg PO DAILY 09/30/17 Furosemide [Lasix] 40 mg PO DAILY #60 tab 10/04/17 Following Prescrptions Were Given to Patient: Furosemide [Lasix] 40 mg PO DAILY #60 tab Primary Care Physician: Aaron Tidwell MD [Primary Care Provider] - Within 1 Week Disposition: Home Minutes spent on discharge:: 32 Patient Condition:: Good Meaningful Use Info Meaningful Use Diagnoses (Choose all that apply): CHF - CHF ABBIE/ARB ordered at discharge?: No Reason ABBIE/ARB not ordered?: Worsening renal disease Documented LVEF (%): 50 Code Visit Inpatient E&M: 55248 Disch Hosp
--- NOTE | 2017-10-04 13:20 | DS.PCM_ITS ---
Discharge Date and Diagnosis - Problem List Patient Problems: Active and Suspected Problems (Last Updated 09/28/17 @ 08:55 by Romina Francisco) Heart failure with 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 (Acute) Date of Admission: 09/29/17 Date of Discharge: 10/04/17 - Primary Discharge Diagnosis Active and Suspected Problems (Last Updated 09/28/17 @ 08:55 by Romina Francisco) Heart failure with 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 (Acute) Cellulitis (Acute) - Secondary Discharge Diagnosis Chronic Problems (Last Updated 09/28/17 @ 08:55 by Romina Francisco) intermediate current use of anticoagulant (Chronic) Chronic atrial fibrillation (Chronic) Status post placement of implantable loop recorder (Chronic) History of maze procedure (Chronic) Other secondary pulmonary hypertension (Chronic) Chronic diastolic (congestive) heart failure (Chronic) Symptomatic anemia (Chronic) Hypertension (Chronic) Type 2 diabetes mellitus (Chronic) Lung nodule (Chronic) Chronic kidney disease, stage 3 (Chronic) 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 calciphylaxis vs. erythema nodosum vs. dermatomyositis vs. panniculitis Mass of soft tissue of right lower extremity (Chronic) right inner upper thigh - ? calciphylaxis vs. erythema nodosum vs. dermatomyositis vs. panniculitis Hospital Course and Treatment Consultations 09/30/17 23:55 Consult: Onc/Wound/student services representative Routine Comment: Reason for Consult:: EDIN LOWER EXT STASIS ULCERS Operations: None Procedures: None Summary of Care Provided: The patient is a 71 year old F patient admitted with pain and redness of her lower extremities. Concern was for cellulitis. By time I saw the patient discontinue the antibiotics and monitor the patient. Patient had edema of her lower extremities they were red blood cells bilateral and not concerning for cellulitis from my standpoint. Patient was monitored for 2 days afterwards and had no worsening of her erythema of her lower extremities and actually improved. Seems to be more consistent with venous stasis dermatitis with the redness. Patient's has been digitally in bed something that really help a lot of the redness overall. I discussed this with the patient. Patient's Lasix will be increased from 20 mg every other day to 40 mg daily and then additional dose as needed for weight gain 2 pounds in 1 day or 3 pounds in 1 week. Patient will be discharged home. Echo in the past showed an ejection fraction of 80%. Patient was on metformin as outpatient would discontinue that in light of the patient's heart failure. [] Discharge Diet: 2000 Calorie Control Diet, 6 Cup Fluid Restriction, 2000 mg Sodium Diet Discharge Activity: Return to Normal Activity Return to work on:: 10/09/17 Call your doctor if your incision/area has: Continuous Slow Oozing, Sudden Increased Bleeding, Increased Pain/ Swelling, Increased Redness Home Medications: Medications to take at Discharge Metoprolol Tartrate [Lopressor (beta alok)] 12.5 mg PO BID #90 tablet Aspirin [Adult Low Dose Aspirin EC] 81 mg PO DAILY 03/03/17 Oxycodone [Oxyir] 5 mg PO Q4H PRN PRN 09/26/17 warfarin 4 mg tablet 4 mg PO MOWEFR 09/28/17 Gabapentin [Neurontin] 100 mg PO 4X/DAY 09/29/17 Warfarin [Coumadin] 2 mg PO SUTUTHSA 09/29/17 Fluoxetine [Prozac] 20 mg PO DAILY 09/30/17 Furosemide [Lasix] 40 mg PO DAILY #60 tab 10/04/17 Following Prescrptions Were Given to Patient: Furosemide [Lasix] 40 mg PO DAILY #60 tab Primary Care Physician: Aaron Tidwell MD [Primary Care Provider] - Within 1 Week Disposition: Home Minutes spent on discharge:: 32 Patient Condition:: Good Meaningful Use Info Meaningful Use Diagnoses (Choose all that apply): CHF - CHF ABBIE/ARB ordered at discharge?: No Reason ABBIE/ARB not ordered?: Worsening renal disease Documented LVEF (%): 50 Code Visit Inpatient E&M: 06088 Disch Hosp
== END 2017-10-04 14:02 | disposition home or self-care (01) | DRG 292 ==
LOC: ED 21:31 → MS2 22:07
PROVIDERS: Student in an Organized Health Care Education/Training Program; Admitting Provider Internal Medicine; Emergency Provider Emergency Medicine; Family Provider Internal Medicine; PCP Internal Medicine
DX: I13.0 Hypertensive heart and chronic kidney disease with heart failure and stage 1 through stage 4 chronic kidney disease, or unspecified chronic kidney disease (principal); N17.9 Acute kidney failure, unspecified; E11.22 Type 2 diabetes mellitus with diabetic chronic kidney disease; I27.20 Pulmonary hypertension, unspecified; I50.32 Chronic diastolic (congestive) heart failure; L97.819 Non-pressure chronic ulcer of other part of right lower leg with unspecified severity; L97.829 Non-pressure chronic ulcer of other part of left lower leg with unspecified severity; I83.018 Varicose veins of right lower extremity with ulcer other part of lower leg; I48.2 Chronic atrial fibrillation; M25.50 Pain in unspecified joint; N18.3 Chronic kidney disease, stage 3 (moderate); M48.061 Spinal stenosis, lumbar region without neurogenic claudication; I83.028 Varicose veins of left lower extremity with ulcer other part of lower leg; E87.6 Hypokalemia; G89.4 Chronic pain syndrome; I73.9 Peripheral vascular disease, unspecified; R60.9 Edema, unspecified; Z79.01 Long term (current) use of anticoagulants; Z79.84 Long term (current) use of oral hypoglycemic drugs; Z79.82 Long term (current) use of aspirin
CPT/HCPCS: 36415; 71045; 80048; 80053; 80069; 82306; 82310; 82550; 82728; 82962; 83540; 83550; 83880; 83970; 84439; 84443; 84480; 84484; 85025; 85027; 85610; 85652; 86038; 86140; 87040; 93005; 93970; 97110; 97116; 97162; 97165; 97530; 97535; 99282; 99284; J7030; J7040; A4216; J1940

== ENCOUNTER 2017-10-17 11:59 | Outpatient (RCR) | payer MEDICARE, SELFPAY ==
[2017-09-27 12:44] LABS: Prothrombin Time (Protime)PT. 39.8 SECONDS (11.7-14.9)
[2017-09-27 12:50] LABS: International Normalized Ratio 4.3
[2017-09-27 14:41] LABS: Prothrombin Time (Protime)PT. 38.9 SECONDS (11.7-14.9)
[2017-09-27 14:42] LABS: Erythrocyte Sedimentation Rate 71 mm/hr (0-30)
[2017-09-27 14:52] LABS: International Normalized Ratio 4.2
[2017-09-27 14:57] LABS: CPK Total, Creatine Kinase 97 U/L (26-192)
[2017-09-27 15:37] LABS: PTHIN 2.9 pg/mL (18.4-80.1)
[2017-09-29 08:46] LABS: ANTINUCLEAR ANTIBODIES DIRECT Negative (Negative)
[2017-10-17 12:11] LABS: Prothrombin Time Fingerstick 24.4 SEC (11.9-14.4)
== END 2017-10-17 12:30 | disposition home or self-care (01) ==
LOC: LAB 11:59
PROVIDERS: Family Medicine; Family Provider Internal Medicine; PCP Internal Medicine; Visit Provider Internal Medicine Cardiovascular Disease
DX: I48.2 Chronic atrial fibrillation (principal); Z79.01 Long term (current) use of anticoagulants
CPT/HCPCS: 36415; 36416; 80069; 82306; 82310; 82550; 83970; 85610; 85652; 86038; 86140

== ENCOUNTER 2017-10-25 08:00 | Outpatient (RCR) | payer MEDICARE, SELFPAY ==
[2017-09-25 01:46] VITALS: BP 141/83; PULSE 102; RESP 20; TEMP 36.2; BMI 35.4
[2017-09-27 15:02] LABS: Albumin, Serum 3.5 g/dL (3.4-5.0); BUN 33 mg/dL (7-18); Calcium,Total 9.8 mg/dL (8.5-10.1); Chloride 98 mmol/L (98-107); Creatinine, Serum 1.94 mg/dL (0.55-1.02); EST Glomerular Filtration Rate 27 mL/min (>60); Est Glom Filt Rate - Afr Amer 33 mL/min (>60); Estimated Creatinine Clearance 22.32 ml/min; Glucose 111 mg/dL (70-110); Phosphorus 3.2 mg/dL (2.5-4.9); Potassium 3.5 mmol/L (3.5-5.1); Sodium Level 135 mmol/L (136-145)
[2017-09-27 15:16] LABS: Vitamin D,25 Hydroxy 32.9 ng/mL
[2017-10-10 12:56] VITALS: BP 107/63; PULSE 98; RESP 16; TEMP 36; BMI 35.4
--- NOTE | 2017-10-10 14:26 | PCM.WC.HP ---
(1) Venous stasis ulcer of left lower leg with edema of left lower leg Status: Chronic Current Visit: Yes Code(s): I83.892 - Varicose veins of left lower extremity with other complications; I83.028 - Varicose veins of left lower extremity with ulcer other part of lower leg; R60.9 - Edema, unspecified (2) Venous stasis ulcer of right lower leg with edema of right lower leg Status: Chronic Current Visit: Yes Code(s): I83.891 - Varicose veins of right lower extremity with other complications; I83.018 - Varicose veins of right lower extremity with ulcer other part of lower leg; R60.9 - Edema, unspecified (3) Localized edema Status: Acute Current Visit: Yes Code(s): R60.0 - Localized edema History of Present Illness Date of Service: 10/10/17 Chief Complaint: Wounds/ulcers of b/l lower legs History of Wound: Di is a 71 yo female patient of Dr. Delvalle that presents for evaluation and treatment of lower extremity ulcers that have been present since June. She states that she developed swelling in her legs in April and has not been able to get this under control. In June, she developed wounds/ulcers to her right leg and left leg as blisters developed and then opened. She has been seen by Dr. Pelaez, the ER and her PCP and has had several tests but the wounds/ulcers have not healed. She was also recently admitted at [facility] for this. She complains of severe pain in the wounds and her legs since July. She has indurated areas on her inner thighs and across her right abdomen that are erythematous and tender. She denies being evaluated for any rheumatologic causes of these areas but does state that when she was in the ER in April that they told her that her calcium level was high and they advised her to decrease her calcium and vitamin D. She has been applying telfa pads since going to the ED on Monday and using Tray wraps for compression. She states tubigrips applied here previously were too tight. She tries to elevated her legs but has a lot of back pain due to her spinal stenosis. In addition, she gets short of breath if her legs are above her heart. She admits to sleeping and frequently sitting with her legs below her heart. Her Lasix was doubled since discharge from the hospital, and she believes her swelling has improved. She is not currently taking any antibiotics. She c/o severe pain. She sees Dr. Carbajal for pain management for her spinal stenosis but has not taken any medication or needed medication for her pain in the past. Epidurals have been effective for her spinal stenosis and sciatica in the past. Denies fever or chills. 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 calciphylaxis vs. erythema nodosum vs. dermatomyositis vs. panniculitis Mass of soft tissue of right lower extremity (Chronic) right inner upper thigh - ? calciphylaxis vs. erythema nodosum vs. dermatomyositis vs. panniculitis Surgical History: cataract, cholecystectomy, hysterectomy, - Allergies/Adverse Reactions: Allergies amlodipine besylate [From Norvasc] Allergy (Verified 10/07/17 09:31) Unknown Shortness of breath ceftriaxone Allergy (Verified 10/07/17 09:31) Rash doxazosin mesylate [From Cardura] Allergy (Verified 10/07/17 09:31) Unknown Pt doesn't remember doxycycline Allergy (Verified 10/07/17 09:31) Unknown Pt doesn't remember enalapril maleate [From Vasotec] Allergy (Verified 10/07/17 09:31) Rash enalaprilat dihydrate [From Vasotec] Allergy (Verified 10/07/17 09:31) Rash hydroxyzine HCl [From Vistaril] Allergy (Verified 10/07/17 09:31) Rash hydroxyzine pamoate [From Vistaril] Allergy (Verified 10/07/17 09:31) Rash meperidine HCl [From Demerol] Allergy (Verified 10/07/17 09:31) Rash Sulfa (Sulfonamide Antibiotics) Allergy (Verified 10/07/17 09:31) Hives sulfamethoxazole [From Bactrim] Allergy (Verified 10/07/17 09:31) Hives trimethoprim [From Bactrim] Allergy (Verified 10/07/17 09:31) Hives Home Medications: Ambulatory Orders Medication Instructions Recorded Metoprolol Tartrate [Lopressor 12.5 mg PO BID #90 tablet 11/06/15 (beta alok)] Aspirin [Adult Low Dose Aspirin EC] 81 mg PO DAILY 03/03/17 Oxycodone [Oxyir] 5 mg PO Q4H PRN PRN 09/26/17 warfarin 4 mg tablet 4 mg PO MOWEFR 09/28/17 Gabapentin [Neurontin] 100 mg PO 4X/DAY 09/29/17 Warfarin [Coumadin] 2 mg PO SUTUTHSA 09/29/17 Fluoxetine [Prozac] 20 mg PO DAILY 09/30/17 Furosemide [Lasix] 40 mg PO DAILY #60 tab 10/04/17 - Family History Maternal No pertinent history Paternal No pertinent history Lives: Spouse/ Significant Other Smoking Status: Never smoker Tobacco Use: Non-smoker Review of Systems Constitutional: Denies: Chills, Fever, Weight Change Eyes: Denies: Pain, Vision Change HEENT: Denies: Difficulty Hearing, Difficulty Swallowing, Sinus Congestion Cardiovascular: Reports: Edema. Denies: Chest Pain, Palpitations Respiratory: Denies: Cough, Shortness of Breath Gastrointestinal: Denies: Diarrhea, Nausea, Vomiting Genitourinary: Denies: Dysuria, Hematuria Musculoskeletal: Reports: Back Pain, Leg Pain Skin: Reports: Wounds Neurological: Denies: Numbness Endocrine: Denies: Heat/ Cold Intolerance, Polydipsia, Polyuria Hematologic/ Lymphatic: Denies: Easy Bruising, Easy Bleeding, Hx of blood clot - Physical Exam Vital Signs Temp Pulse Resp BP 96.8 F L 98 16 107/63 10/10/17 12:56 10/10/17 12:56 10/10/17 12:56 10/10/17 12:56 General: Alert, Oriented x3, Cooperative, No apparent distress Abdomen: Soft Extremities: Diminished Peripheral Pulses, Edema Skin: Ulcer/ Wound - R and L calf with no erythema, no calor, no purulent drainage, no malodor, minimal TTP of ulcer or gabriella-ulcer area. No clinical signs of acute bacterial infection noted. See wound/edema assessment below. Wound Measurements and Assessment - Nurse 1 - General Ulcer Measurement Start: 09/29/17 11:42 Freq: Status: Active Protocol: Activity Type Activity Date Activity User E-Sign Co-Sign Detail Recorded Client Recorded Date Recorded By Document 10/10/17 12:56 [facility] [id number] 10/10/17 13:18 [facility] 10/10/17 12:56 Wound Center Nurse 1 [Ulcer Assessment Protocol: WC.WD.LOC] #2 Left calf -Combined with other wound No -Current Size (cm) - Length 0.9 -Current Size (cm) - Width 1.4 -Current Size (cm) - Depth 0.1 -Total Square Cm 1.26 -Date of Last Picture (Recall this 10/10/17 field) -Photo Taken Yes -Epithelialization None Present -Tunneling No -Undermining/Tunneling No -Exudate Amt Small (1-33%) -Exudate Type Serous -Wound Margin Distinct, Outline Attached -Granulation Amt None Present (0 %) -Slough/Fibrin Yes -Necrosis Amt Large (67-100%) -Necrotic Tissue Type Eschar -Structure Exposed N/A -Texture (Gabriella-wound Skin Appearance) Scarring -Moisture (Gabriella-wound Skin Appearance Dry/Scaly ) -Color (Gabriella-wound Skin Appearance) Ecchymosis -Temperature (Gabriella-wound Skin No Abnormality Appearance) (Pt Warm) -Tenderness on Palpation (Gabriella-wound Yes Skin Appearance) -Ulcer Cleansing Wound Cleanser -Foul Odor after Cleansing No -Anesthetic Used 5% Lidocaine Gel #1 RIGHT MEDIAL LE CLUSTER -Combined with other wound No -Current Size (cm) - Length 7.8 -Current Size (cm) - Width 6.2 -Current Size (cm) - Depth 0.1 -Total Square Cm 48.36 -Date of Last Picture (Recall this 10/10/17 field) -Photo Taken Yes -Epithelialization None Present -Tunneling No -Undermining/Tunneling No -Exudate Amt Medium (34-66%) -Exudate Type Serosanguineous -Wound Margin Distinct, Outline Attached -Granulation Amt Small (1-33%) -Granulation Quality Red -Slough/Fibrin Yes -Necrosis Amt Large (67-100%) -Necrotic Tissue Type Eschar -Structure Exposed N/A -Texture (Gabriella-wound Skin Appearance) Scarring -Moisture (Gabriella-wound Skin Appearance Dry/Scaly ) -Color (Gabriella-wound Skin Appearance) Ecchymosis Erythema -Temperature (Gabriella-wound Skin No Abnormality Appearance) (Pt Warm) -Tenderness on Palpation (Gabriella-wound Yes Skin Appearance) -Ulcer Cleansing Wound Cleanser -Foul Odor after Cleansing No -Anesthetic Used 5% Lidocaine Gel [Edema Assessment] -Lower Limb Edema Present Yes -Right Calf (cm) 38.5 -Right Ankle (cm) 23.1 -Left Calf (cm) 38 -Left Ankle (cm) 23.4 WC - Nurse 2 - General Ulcer CM Notes Start: 09/29/17 11:42 Freq: Status: Active Protocol: Activity Type Activity Date Activity User E-Sign Co-Sign Detail Recorded Client Recorded Date Recorded By Document 10/10/17 13:41 MW [id number] 10/10/17 13:52 MW 10/10/17 13:41 Wound Center Nurse 2 [Procedure/Treatment] #2 Left calf -Time 13:42 -Correct Patient Yes -Correct Side, Site, Position Yes -Correct Procedure Yes -Procedure Performed No -Post Debridement Size (cm) - Length 0.9 -Post Debridement Size (cm) - Width 1.4 -Post Debridement Size (cm) - Depth 0.1 -Total Square Cm 1.26 -Wound/Ulcer Outcome Not Healed -Ulcer Cleansing Rinsed/ Irrigated with Saline -Foul Odor after Cleansing No -Bioengineered Tissue No -Cetacaine [place] No -Bleeding Controlled with Pressure -Treatment Response Procedure Tolerated Well #1 RIGHT MEDIAL LE CLUSTER -Time 13:42 -Correct Patient Yes -Correct Side, Site, Position Yes -Correct Procedure Yes -Procedure Performed No -Post Debridement Size (cm) - Length 7.8 -Post Debridement Size (cm) - Width 6.2 -Post Debridement Size (cm) - Depth 0.1 -Total Square Cm 48.36 -Wound/Ulcer Outcome Not Healed -Ulcer Cleansing Rinsed/ Irrigated with Saline -Foul Odor after Cleansing No -Bioengineered Tissue No -Cetacaine [place] No -Bleeding Controlled with Pressure -Treatment Response Procedure Tolerated Well [See Physician Procedure note for Specifics] Pain Scale: 0-10 Numeric [Pain] -Is Patient Pain Free? Yes Musculoskeletal: No Muscle Wasting Neurological: Neuro grossly intact, Motor Exam 5/5 strength throughout, Muscle tone normal, Coordination normal, Gait narrow based and stable Psych/Mental Status: Alert and oriented to time, place, person, mood and affect - wnl Debridement Note Post-Debridement Measurements/Treatment WC - Nurse 2 - General Ulcer CM Notes Start: 09/29/17 11:42 Freq: Status: Active Protocol: Activity Type Activity Date Activity User E-Sign Co-Sign Detail Recorded Client Recorded Date Recorded By Document 10/10/17 13:41 MW [id number] 10/10/17 13:52 MW 10/10/17 13:41 Wound Center Nurse 2 #2 Left calf -Time 13:42 -Correct Patient Yes -Correct Side, Site, Position Yes -Correct Procedure Yes -Procedure Performed No -Post Debridement Size (cm) - Length 0.9 -Post Debridement Size (cm) - Width 1.4 -Post Debridement Size (cm) - Depth 0.1 -Total Square Cm 1.26 -Wound/Ulcer Outcome Not Healed -Ulcer Cleansing Rinsed/ Irrigated with Saline -Foul Odor after Cleansing No -Bioengineered Tissue No -Cetacaine [place] No -Bleeding Controlled with Pressure -Treatment Response Procedure Tolerated Well #1 RIGHT MEDIAL LE CLUSTER -Time 13:42 -Correct Patient Yes -Correct Side, Site, Position Yes -Correct Procedure Yes -Procedure Performed No -Post Debridement Size (cm) - Length 7.8 -Post Debridement Size (cm) - Width 6.2 -Post Debridement Size (cm) - Depth 0.1 -Total Square Cm 48.36 -Wound/Ulcer Outcome Not Healed -Ulcer Cleansing Rinsed/ Irrigated with Saline -Foul Odor after Cleansing No -Bioengineered Tissue No -Cetacaine [place] No -Bleeding Controlled with Pressure -Treatment Response Procedure Tolerated Well Pain Scale: 0-10 Numeric Is Patient Pain Free? Yes No debridement was completed today Assessment/Plan Active Problems (Last Updated 09/28/17 @ 08:55 by Romina Francisco) Localized edema (Acute) Venous stasis ulcer of left lower leg with edema of left lower leg (Chronic) Venous stasis ulcer of right lower leg with edema of right lower leg (Chronic) Assessment: venous ulcers of b/l LE due to venous insufficiency. ? calciphylaxis vs. erythema nodosum vs. dermatomyositis vs. panniculitis of abdomen and thighs b/l Plan: ST[employer]ODUCER exam. Di's wounds were evaluated today. Her venous ulcers are very small in size and not very deep. Will dress her wounds with Aquacel Ag and adaptic and use tubigrips for light compression, increase from size E to size F, but use double layer. Labs ordered to evaluate for possible causes of her indurated areas on thighs and abdomen to r/o rheumatologic causes by Dr. Delvalle previously. Other possibile things to consider would be early calciphylaxis or other vasculitis. She has follow up with Dr. Pelaez end of September. Encouraged her to elevated legs as much as possible, avoid idle sitting or standing, increase activity, as well as weight management. Pt is unable to take PO NSAIDs due to current use of coumadin. She is to call if increased drainage or changes in wounds. She is to have all labs drawn prior to her next visit with Dr. Delvalle. We will obtain most recent echo result from [facility] as well as all vascular testing results (venous and arterial) from Dr. Pelaez's office prior to her next visit with Dr. Delvalle. F/U in [address] Delvalle.
--- NOTE | 2017-10-10 14:38 | HP.PCM_ITS ---
(1) Venous stasis ulcer of left lower leg with edema of left lower leg Status: Chronic Current Visit: Yes Code(s): I83.892 - Varicose veins of left lower extremity with other complications; I83.028 - Varicose veins of left lower extremity with ulcer other part of lower leg; R60.9 - Edema, unspecified (2) Venous stasis ulcer of right lower leg with edema of right lower leg Status: Chronic Current Visit: Yes Code(s): I83.891 - Varicose veins of right lower extremity with other complications; I83.018 - Varicose veins of right lower extremity with ulcer other part of lower leg; R60.9 - Edema, unspecified (3) Localized edema Status: Acute Current Visit: Yes Code(s): R60.0 - Localized edema History of Present Illness Date of Service: 10/10/17 Chief Complaint: Wounds/ulcers of b/l lower legs History of Wound: Di is a 71 yo female patient of Dr. Delvalle that presents for evaluation and treatment of lower extremity ulcers that have been present since June. She states that she developed swelling in her legs in April and has not been able to get this under control. In June, she developed wounds/ ulcers to her right leg and left leg as blisters developed and then opened. She has been seen by Dr. Pelaez, the ER and her PCP and has had several tests but the wounds/ulcers have not healed. She was also recently admitted at [facility] for this. She complains of severe pain in the wounds and her legs since July. She has indurated areas on her inner thighs and across her right abdomen that are erythematous and tender. She denies being evaluated for any rheumatologic causes of these areas but does state that when she was in the ER in April that they told her that her calcium level was high and they advised her to decrease her calcium and vitamin D. She has been applying telfa pads since going to the ED on Monday and using Tray wraps for compression. She states tubigrips applied here previously were too tight. She tries to elevated her legs but has a lot of back pain due to her spinal stenosis. In addition, she gets short of breath if her legs are above her heart. She admits to sleeping and frequently sitting with her legs below her heart. Her Lasix was doubled since discharge from the hospital, and she believes her swelling has improved. She is not currently taking any antibiotics. She c/o severe pain. She sees Dr. Carbajal for pain management for her spinal stenosis but has not taken any medication or needed medication for her pain in the past. Epidurals have been effective for her spinal stenosis and sciatica in the past. Denies fever or chills. 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 calciphylaxis vs. erythema nodosum vs. dermatomyositis vs. panniculitis Mass of soft tissue of right lower extremity (Chronic) right inner upper thigh - ? calciphylaxis vs. erythema nodosum vs. dermatomyositis vs. panniculitis Surgical History: cataract, cholecystectomy, hysterectomy, - Allergies/Adverse Reactions: Allergies amlodipine besylate [From Norvasc] Allergy (Verified 10/07/17 09:31) Unknown Shortness of breath ceftriaxone Allergy (Verified 10/07/17 09:31) Rash doxazosin mesylate [From Cardura] Allergy (Verified 10/07/17 09:31) Unknown Pt doesn't remember doxycycline Allergy (Verified 10/07/17 09:31) Unknown Pt doesn't remember enalapril maleate [From Vasotec] Allergy (Verified 10/07/17 09:31) Rash enalaprilat dihydrate [From Vasotec] Allergy (Verified 10/07/17 09:31) Rash hydroxyzine HCl [From Vistaril] Allergy (Verified 10/07/17 09:31) Rash hydroxyzine pamoate [From Vistaril] Allergy (Verified 10/07/17 09:31) Rash meperidine HCl [From Demerol] Allergy (Verified 10/07/17 09:31) Rash Sulfa (Sulfonamide Antibiotics) Allergy (Verified 10/07/17 09:31) Hives sulfamethoxazole [From Bactrim] Allergy (Verified 10/07/17 09:31) Hives trimethoprim [From Bactrim] Allergy (Verified 10/07/17 09:31) Hives Home Medications: Ambulatory Orders Medication Instructions Recorded Metoprolol Tartrate [Lopressor 12.5 mg PO BID #90 tablet 11/06/15 (beta alok)] Aspirin [Adult Low Dose Aspirin EC] 81 mg PO DAILY 03/03/17 Oxycodone [Oxyir] 5 mg PO Q4H PRN PRN 09/26/17 warfarin 4 mg tablet 4 mg PO MOWEFR 09/28/17 Gabapentin [Neurontin] 100 mg PO 4X/DAY 09/29/17 Warfarin [Coumadin] 2 mg PO SUTUTHSA 09/29/17 Fluoxetine [Prozac] 20 mg PO DAILY 09/30/17 Furosemide [Lasix] 40 mg PO DAILY #60 tab 10/04/17 - Family History Maternal No pertinent history Paternal No pertinent history Lives: Spouse/ Significant Other Smoking Status: Never smoker Tobacco Use: Non-smoker Review of Systems Constitutional: Denies: Chills, Fever, Weight Change Eyes: Denies: Pain, Vision Change HEENT: Denies: Difficulty Hearing, Difficulty Swallowing, Sinus Congestion Cardiovascular: Reports: Edema. Denies: Chest Pain, Palpitations Respiratory: Denies: Cough, Shortness of Breath Gastrointestinal: Denies: Diarrhea, Nausea, Vomiting Genitourinary: Denies: Dysuria, Hematuria Musculoskeletal: Reports: Back Pain, Leg Pain Skin: Reports: Wounds Neurological: Denies: Numbness Endocrine: Denies: Heat/ Cold Intolerance, Polydipsia, Polyuria Hematologic/ Lymphatic: Denies: Easy Bruising, Easy Bleeding, Hx of blood clot - Physical Exam Vital Signs Temp Pulse Resp BP 96.8 F L 98 16 107/63 10/10/17 12:56 10/10/17 12:56 10/10/17 12:56 10/10/17 12:56 General: Alert, Oriented x3, Cooperative, No apparent distress Abdomen: Soft Extremities: Diminished Peripheral Pulses, Edema Skin: Ulcer/ Wound - R and L calf with no erythema, no calor, no purulent drainage, no malodor, minimal TTP of ulcer or gabriella-ulcer area. No clinical signs of acute bacterial infection noted. See wound/edema assessment below. Wound Measurements and Assessment - Nurse 1 - General Ulcer Measurement Start: 09/29/17 11:42 Freq: Status: Active Protocol: Activity Type Activity Date Activity User E-Sign Co-Sign Detail Recorded Client Recorded Date Recorded By Document 10/10/17 12:56 [facility] [id number] 10/10/17 13:18 [facility] 10/10/17 12:56 Wound Center Nurse 1 [Ulcer Assessment Protocol: WC.WD.LOC] #2 Left calf -Combined with other wound No -Current Size (cm) - Length 0.9 -Current Size (cm) - Width 1.4 -Current Size (cm) - Depth 0.1 -Total Square Cm 1.26 -Date of Last Picture (Recall this 10/10/17 field) -Photo Taken Yes -Epithelialization None Present -Tunneling No -Undermining/Tunneling No -Exudate Amt Small (1-33%) -Exudate Type Serous -Wound Margin Distinct, Outline Attached -Granulation Amt None Present (0 %) -Slough/Fibrin Yes -Necrosis Amt Large (67-100%) -Necrotic Tissue Type Eschar -Structure Exposed N/A -Texture (Gabriella-wound Skin Appearance) Scarring -Moisture (Gabriella-wound Skin Appearance Dry/Scaly ) -Color (Gabriella-wound Skin Appearance) Ecchymosis -Temperature (Gabriella-wound Skin No Abnormality Appearance) (Pt Warm) -Tenderness on Palpation (Gabriella-wound Yes Skin Appearance) -Ulcer Cleansing Wound Cleanser -Foul Odor after Cleansing No -Anesthetic Used 5% Lidocaine Gel #1 RIGHT MEDIAL LE CLUSTER -Combined with other wound No -Current Size (cm) - Length 7.8 -Current Size (cm) - Width 6.2 -Current Size (cm) - Depth 0.1 -Total Square Cm 48.36 -Date of Last Picture (Recall this 10/10/17 field) -Photo Taken Yes -Epithelialization None Present -Tunneling No -Undermining/Tunneling No -Exudate Amt Medium (34-66%) -Exudate Type Serosanguineous -Wound Margin Distinct, Outline Attached -Granulation Amt Small (1-33%) -Granulation Quality Red -Slough/Fibrin Yes -Necrosis Amt Large (67-100%) -Necrotic Tissue Type Eschar -Structure Exposed N/A -Texture (Gabriella-wound Skin Appearance) Scarring -Moisture (Gabriella-wound Skin Appearance Dry/Scaly ) -Color (Gabriella-wound Skin Appearance) Ecchymosis Erythema -Temperature (Gabriella-wound Skin No Abnormality Appearance) (Pt Warm) -Tenderness on Palpation (Gabriella-wound Yes Skin Appearance) -Ulcer Cleansing Wound Cleanser -Foul Odor after Cleansing No -Anesthetic Used 5% Lidocaine Gel [Edema Assessment] -Lower Limb Edema Present Yes -Right Calf (cm) 38.5 -Right Ankle (cm) 23.1 -Left Calf (cm) 38 -Left Ankle (cm) 23.4 WC - Nurse 2 - General Ulcer CM Notes Start: 09/29/17 11:42 Freq: Status: Active Protocol: Activity Type Activity Date Activity User E-Sign Co-Sign Detail Recorded Client Recorded Date Recorded By Document 10/10/17 13:41 MW [id number] 10/10/17 13:52 MW 10/10/17 13:41 Wound Center Nurse 2 [Procedure/Treatment] #2 Left calf -Time 13:42 -Correct Patient Yes -Correct Side, Site, Position Yes -Correct Procedure Yes -Procedure Performed No -Post Debridement Size (cm) - Length 0.9 -Post Debridement Size (cm) - Width 1.4 -Post Debridement Size (cm) - Depth 0.1 -Total Square Cm 1.26 -Wound/Ulcer Outcome Not Healed -Ulcer Cleansing Rinsed/ Irrigated with Saline -Foul Odor after Cleansing No -Bioengineered Tissue No -Cetacaine Edwards No -Bleeding Controlled with Pressure -Treatment Response Procedure Tolerated Well #1 RIGHT MEDIAL LE CLUSTER -Time 13:42 -Correct Patient Yes -Correct Side, Site, Position Yes -Correct Procedure Yes -Procedure Performed No -Post Debridement Size (cm) - Length 7.8 -Post Debridement Size (cm) - Width 6.2 -Post Debridement Size (cm) - Depth 0.1 -Total Square Cm 48.36 -Wound/Ulcer Outcome Not Healed -Ulcer Cleansing Rinsed/ Irrigated with Saline -Foul Odor after Cleansing No -Bioengineered Tissue No -Cetacaine Edwards No -Bleeding Controlled with Pressure -Treatment Response Procedure Tolerated Well [See Physician Procedure note for Specifics] Pain Scale: 0-10 Numeric [Pain] -Is Patient Pain Free? Yes Musculoskeletal: No Muscle Wasting Neurological: Neuro grossly intact, Motor Exam 5/5 strength throughout, Muscle tone normal, Coordination normal, Gait narrow based and stable Psych/Mental Status: Alert and oriented to time, place, person, mood and affect - wnl Debridement Note Post-Debridement Measurements/Treatment WC - Nurse 2 - General Ulcer CM Notes Start: 09/29/17 11:42 Freq: Status: Active Protocol: Activity Type Activity Date Activity User E-Sign Co-Sign Detail Recorded Client Recorded Date Recorded By Document 10/10/17 13:41 MW [id number] 10/10/17 13:52 MW 10/10/17 13:41 Wound Center Nurse 2 #2 Left calf -Time 13:42 -Correct Patient Yes -Correct Side, Site, Position Yes -Correct Procedure Yes -Procedure Performed No -Post Debridement Size (cm) - Length 0.9 -Post Debridement Size (cm) - Width 1.4 -Post Debridement Size (cm) - Depth 0.1 -Total Square Cm 1.26 -Wound/Ulcer Outcome Not Healed -Ulcer Cleansing Rinsed/ Irrigated with Saline -Foul Odor after Cleansing No -Bioengineered Tissue No -Cetacaine Edwards No -Bleeding Controlled with Pressure -Treatment Response Procedure Tolerated Well #1 RIGHT MEDIAL LE CLUSTER -Time 13:42 -Correct Patient Yes -Correct Side, Site, Position Yes -Correct Procedure Yes -Procedure Performed No -Post Debridement Size (cm) - Length 7.8 -Post Debridement Size (cm) - Width 6.2 -Post Debridement Size (cm) - Depth 0.1 -Total Square Cm 48.36 -Wound/Ulcer Outcome Not Healed -Ulcer Cleansing Rinsed/ Irrigated with Saline -Foul Odor after Cleansing No -Bioengineered Tissue No -Cetacaine Edwards No -Bleeding Controlled with Pressure -Treatment Response Procedure Tolerated Well Pain Scale: 0-10 Numeric Is Patient Pain Free? Yes No debridement was completed today Assessment/Plan Active Problems (Last Updated 09/28/17 @ 08:55 by Romina Francisco) Localized edema (Acute) Venous stasis ulcer of left lower leg with edema of left lower leg (Chronic) Venous stasis ulcer of right lower leg with edema of right lower leg (Chronic) Assessment: venous ulcers of b/l LE due to venous insufficiency. ? calciphylaxis vs. erythema nodosum vs. dermatomyositis vs. 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 Di's wounds were evaluated today. Her venous ulcers are very small in size and not very deep. Will dress her wounds with Aquacel Ag and adaptic and use tubigrips for light compression, increase from size E to size F, but use double layer. Labs ordered to evaluate for possible causes of her indurated areas on thighs and abdomen to r/o rheumatologic causes by Dr. Delvalle previously. Other possibile things to consider would be early calciphylaxis or other vasculitis. She has follow up with Dr. Pelaez end of September. Encouraged her to elevated legs as much as possible, avoid idle sitting or standing, increase activity, as well as weight management. Pt is unable to take PO NSAIDs due to current use of coumadin. She is to call if increased drainage or changes in wounds. She is to have all labs drawn prior to her next visit with Dr. Delvalle. We will obtain most recent echo result from [facility] as well as all vascular testing results (venous and arterial) from Dr. Pelaez's office prior to her next visit with Dr. Delvalle. F/U in [address] Delvalle.
[2017-10-20 13:24] VITALS: BP 116/68; PULSE 78; RESP 16; TEMP 36.4; BMI 35.4
--- NOTE | 2017-10-20 18:28 | PCM.WC.PN ---
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 Current Visit: Yes Code(s): Z79.01 - residential (current) use of anticoagulants (2) Type 2 diabetes mellitus Status: Chronic Current Visit: Yes Qualifiers: Diabetes mellitus complication status: with neurologic complications Diabetes mellitus complication detail: with polyneuropathy Diabetes mellitus assisted insulin use: without exterminator helper termite use Qualified Code(s): E11.42 - Type 2 diabetes mellitus with diabetic polyneuropathy Code(s): E11.9 - Type 2 diabetes mellitus without complications (3) Chronic kidney disease, stage 3 Status: Chronic Current Visit: Yes (4) Spinal stenosis of lumbar region with radiculopathy Status: Chronic Current Visit: Yes Code(s): M48.061 - Spinal stenosis, lumbar region without neurogenic claudication; M54.16 - Radiculopathy, lumbar region (5) PAD (peripheral artery disease) Status: Chronic Current Visit: Yes Code(s): I73.9 - Peripheral vascular disease, unspecified (6) Venous stasis ulcer of left lower leg with edema of left lower leg Status: Chronic Current Visit: Yes Code(s): I83.892 - Varicose veins of left lower extremity with other complications; I83.028 - Varicose veins of left lower extremity with ulcer other part of lower leg; R60.9 - Edema, unspecified (7) Venous stasis ulcer of right lower leg with edema of right lower leg Status: Chronic Current Visit: Yes Code(s): I83.891 - Varicose veins of right lower extremity with other complications; I83.018 - Varicose veins of right lower extremity with ulcer other part of lower leg; R60.9 - Edema, unspecified (8) Arthralgia Status: Chronic Current Visit: Yes Qualifiers: Joint pain location: unspecified Qualified Code(s): M25.50 - Pain in unspecified joint Code(s): M25.50 - Pain in unspecified joint Type of Wound Date of Service: 10/20/17 Chief Complaint: Wounds/ulcers of b/l lower legs History of Wound: Di is a 71 yo female patient of Dr. Smith that presents for evaluation and treatment of lower extremity ulcers that have been present since April. She states that she developed swelling in her legs in April and has not been able to get this under control. In June, she developed wounds/ulcers to her right leg and left leg as blisters developed and then opened. She has been seen by Dr. Pelaez, the ER and her PCP and has had several tests but the wounds/ulcers have not healed. She was also recently admitted at [facility] for this. She complains of severe pain in the wounds and her legs since July. She has indurated areas on her inner thighs and across her right abdomen that are erythematous and tender. She denies being evaluated for any rheumatologic causes of these areas but does state that when she was in the ER in April that they told her that her calcium level was high and they advised her to decrease her calcium and vitamin D. She has been applying telfa pads and using Tray wraps for compression. She states tubigrips applied here previously were too tight. She tries to elevate her legs but has a lot of back pain due to her spinal stenosis. In addition, she gets short of breath if her legs are above her heart. She admits to sleeping and frequently sitting with her legs below her heart. Her Lasix was decreased since discharge from the hospital, and she believes her swelling has worsened. She is not currently taking any antibiotics. She c/o severe pain. She sees Dr. Carbajal for pain management for her spinal stenosis but has not taken any medication or needed medication for her pain in the past. Epidurals have been effective for her spinal stenosis and sciatica in the past. Progress of Wound: Since Di has been seen last she was hospitalized for cellulitis of her b/l LE and was treated for several days with IV antibiotics. She ultimately was found not to have cellulitis and was seen by vascular during her admission and was told she did not have PVD but did have edema that needed to be treated as well as the blistered areas of her LE. She saw Dr. Caraballo in follow up last week at the wound center and is here for weekly follow up and debridement. She continues to have extreme pain in her legs b/l and still has the indurated firm subcutaneous masses present in her thigh areas as well as her lower abdomen. Labs done to evaluate for auto-immune vasculitis vs. calciphylaxis were inconclusive. Her legs have gotten much worse since I saw her last. She now has thick black eschar present with larger wounds. She has difficulty tolerating compression and with elevating her legs as she was advised to do. She is scheduled to follow up with Dr. Pelaez next Monday and with pain management, Dr. Carbajal. 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 Denies fever or chills. - Physical Exam Vital Signs Temp Pulse Resp BP 97.5 F L 78 16 116/68 10/20/17 13:24 10/20/17 13:24 10/20/17 13:24 10/20/17 13:24 General: Alert, Oriented x3, Cooperative, No apparent distress HEENT: Atraumatic, Normocephalic Oral: Moist Mucosa Abdomen: Obese Extremities: Edema Skin: Ulcer/ Wound Wound Measurements and Assessment WC - Nurse 1 - General Ulcer Measurement Start: 09/29/17 11:42 Freq: Status: Active Protocol: Activity Type Activity Date Activity User E-Sign Co-Sign Detail Recorded Client Recorded Date Recorded By Document 10/20/17 13:24 [facility] [id number] 10/20/17 13:33 [facility] 10/20/17 13:24 Wound Center Nurse 1 [Ulcer Assessment Protocol: .WD.LOC] #2 Left calf -Combined with other wound No -Current Size (cm) - Length 7.5 -Current Size (cm) - Width 5.0 -Current Size (cm) - Depth 0.1 -Total Square Cm 37.50 -Photo Taken No -Tunneling No -Undermining/Tunneling No -Exudate Amt Small (1-33%) -Exudate Type Serosanguineous -Wound Margin Distinct, Outline Attached -Granulation Amt None Present (0 %) -Slough/Fibrin Yes -Necrosis Amt Large (67-100%) -Necrotic Tissue Type Adherent Slough -Structure Exposed N/A -Texture (Gabriella-wound Skin Appearance) Scarring -Moisture (Gabriella-wound Skin Appearance Dry/Scaly ) -Color (Gabriella-wound Skin Appearance) Hemosiderin Staining -Temperature (Gabriella-wound Skin No Abnormality Appearance) (Pt Warm) -Tenderness on Palpation (Gabriella-wound Yes Skin Appearance) -Ulcer Cleansing Wound Cleanser -Foul Odor after Cleansing No -Anesthetic Used 4% Lidocaine Solution #1 RIGHT MEDIAL LE CLUSTER -Combined with other wound No -Current Size (cm) - Length 10.9 -Current Size (cm) - Width 7.4 -Current Size (cm) - Depth 0.1 -Total Square Cm 80.66 -Photo Taken No -Epithelialization None Present -Tunneling No -Undermining/Tunneling No -Exudate Amt Small (1-33%) -Exudate Type Serosanguineous -Wound Margin Distinct, Outline Attached -Granulation Amt Small (1-33%) -Granulation Quality Red -Slough/Fibrin Yes -Necrosis Amt Large (67-100%) -Necrotic Tissue Type Eschar -Structure Exposed N/A -Texture (Gabriella-wound Skin Appearance) Scarring -Moisture (Gabriella-wound Skin Appearance Dry/Scaly ) -Color (Gabriella-wound Skin Appearance) Hemosiderin Staining -Temperature (Gabriella-wound Skin No Abnormality Appearance) (Pt Warm) -Tenderness on Palpation (Gabriella-wound Yes Skin Appearance) -Ulcer Cleansing Wound Cleanser -Foul Odor after Cleansing No -Anesthetic Used 4% Lidocaine Solution [Edema Assessment] -Lower Limb Edema Present Yes -Right Calf (cm) 34.5 -Right Ankle (cm) 22 -Left Calf (cm) 35 -Left Ankle (cm) 22.5 WC - Nurse 2 - General Ulcer CM Notes Start: 09/29/17 11:42 Freq: Status: Active Protocol: Activity Type Activity Date Activity User E-Sign Co-Sign Detail Recorded Client Recorded Date Recorded By Document 10/20/17 14:50 [id number] 10/20/17 15:15 10/20/17 14:50 Wound Center Nurse 2 [Procedure/Treatment] #2 Left calf -Time 15:04 -Correct Patient Yes -Correct Side, Site, Position Yes -Correct Procedure Yes -Procedure Performed Yes -Post Debridement Size (cm) - Length 7.5 -Post Debridement Size (cm) - Width 5.0 -Post Debridement Size (cm) - Depth 0.1 -Total Square Cm 37.50 -Wound/Ulcer Outcome Not Healed -Ulcer Cleansing Rinsed/ Irrigated with Saline -Foul Odor after Cleansing No -Bioengineered Tissue No -Cetacaine Clawson No -Topical Lidocaine (%) 5 -Bleeding Controlled with NA -Other did not tolerate debridement -Treatment Response Procedure Not Tolerated Well #1 RIGHT MEDIAL LE CLUSTER -Time 15:14 -Correct Patient Yes -Correct Side, Site, Position Yes -Correct Procedure Yes -Procedure Performed Yes -Post Debridement Size (cm) - Length 10.9 -Post Debridement Size (cm) - Width 7.4 -Post Debridement Size (cm) - Depth 0.1 -Total Square Cm 80.66 -Wound/Ulcer Outcome Not Healed -Ulcer Cleansing Rinsed/ Irrigated with Saline -Foul Odor after Cleansing No -Bioengineered Tissue No -Cetacaine Clawson No -Topical Lidocaine (%) 5 -Bleeding Controlled with Pressure -Other did not tolerate debridement -Treatment Response Procedure Not Tolerated Well [See Physician Procedure note for Specifics] Pain Scale: 0-10 Numeric [Pain] -Is Patient Pain Free? Yes Psych/Mental Status: Normal Affect, Appropriate Debridement Note Post-Debridement Measurements/Treatment WC - Nurse 2 - General Ulcer CM Notes Start: 09/29/17 11:42 Freq: Status: Active Protocol: Activity Type Activity Date Activity User E-Sign Co-Sign Detail Recorded Client Recorded Date Recorded By Document 10/10/17 13:41 MW [id number] 10/10/17 13:52 Document 10/20/17 14:50 TM [id number] 10/20/17 15:15 10/10/17 10/20/17 13:41 14:50 Wound Center Nurse 2 #2 Left calf -Time 13:42 15:04 -Correct Patient Yes Yes -Correct Side, Site, Position Yes Yes -Correct Procedure Yes Yes -Procedure Performed No Yes -Post Debridement Size (cm) - Length 0.9 7.5 -Post Debridement Size (cm) - Width 1.4 5.0 -Post Debridement Size (cm) - Depth 0.1 0.1 -Total Square Cm 1.26 37.50 -Wound/Ulcer Outcome Not Healed Not Healed -Ulcer Cleansing Rinsed/ Rinsed/ Irrigated with Irrigated with Saline Saline -Foul Odor after Cleansing No No -Bioengineered Tissue No No -Cetacaine Clawson No No -Topical Lidocaine (%) 5 -Bleeding Controlled with Pressure NA -Other did not tolerate debridement -Treatment Response Procedure Procedure Not Tolerated Well Tolerated Well #1 RIGHT MEDIAL LE CLUSTER -Time 13:42 15:14 -Correct Patient Yes Yes -Correct Side, Site, Position Yes Yes -Correct Procedure Yes Yes -Procedure Performed No Yes -Post Debridement Size (cm) - Length 7.8 10.9 -Post Debridement Size (cm) - Width 6.2 7.4 -Post Debridement Size (cm) - Depth 0.1 0.1 -Total Square Cm 48.36 80.66 -Wound/Ulcer Outcome Not Healed Not Healed -Ulcer Cleansing Rinsed/ Rinsed/ Irrigated with Irrigated with Saline Saline -Foul Odor after Cleansing No No -Bioengineered Tissue No No -Cetacaine Clawson No No -Topical Lidocaine (%) 5 -Bleeding Controlled with Pressure Pressure -Other did not tolerate debridement -Treatment Response Procedure Procedure Not Tolerated Well Tolerated Well Pain Scale: 0-10 Numeric Is Patient Pain Free? 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 ? calciphylaxis vs. erythema nodosum vs. dermatomyositis vs. panniculitis of abdomen and thighs b/l Plan: Di's wounds were evaluated and debridement was attempted but she was not able to tolerate this at all today. Her venous ulcers are much larger in size since previous visit and have worsened in appearance. I have requested that she see Dr. Dee for evaluation of possible surgical debridement under anesthesia. I do not think she will be able to tolerate debridement even with injection of lidocaine locally due to how tender her legs are. Will dress her wounds with Aquacel Ag and and use tubigrips for light compression, increase from size E to size F, but use double layer. Labs reviewed that were ordered due to areas on thighs and abdomen to r/o rheumatologic causes which were inconclusive ESR and CRP were elevated, HASEEB negative, Calcium WNL, PTH was low. Other possibile things to consider would be early calciphylaxis or other vasculitis. She will follow up with Dr. Pelaez and Dr. Carbajal next week. Encouraged her to elevated legs as much as possible, avoid idle sitting or standing, increase activity, as well as weight management. Pt is unable to take PO NSAIDs due to current use of coumadin. She is to call if increased drainage or changes in wounds. F/U in [address] Dee.
--- NOTE | 2017-10-20 18:44 | PN.PCM_ITS ---
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 Current Visit: Yes Code(s): Z79.01 - half-way (current) use of anticoagulants (2) Type 2 diabetes mellitus Status: Chronic Current Visit: Yes Qualifiers: Diabetes mellitus complication status: with neurologic complications Diabetes mellitus complication detail: with polyneuropathy Diabetes mellitus halfway insulin use: without long term care phlebotomist use Qualified Code(s): E11.42 - Type 2 diabetes mellitus with diabetic polyneuropathy Code(s): E11.9 - Type 2 diabetes mellitus without complications (3) Chronic kidney disease, stage 3 Status: Chronic Current Visit: Yes (4) Spinal stenosis of lumbar region with radiculopathy Status: Chronic Current Visit: Yes Code(s): M48.061 - Spinal stenosis, lumbar region without neurogenic claudication; M54.16 - Radiculopathy, lumbar region (5) PAD (peripheral artery disease) Status: Chronic Current Visit: Yes Code(s): I73.9 - Peripheral vascular disease, unspecified (6) Venous stasis ulcer of left lower leg with edema of left lower leg Status: Chronic Current Visit: Yes Code(s): I83.892 - Varicose veins of left lower extremity with other complications; I83.028 - Varicose veins of left lower extremity with ulcer other part of lower leg; R60.9 - Edema, unspecified (7) Venous stasis ulcer of right lower leg with edema of right lower leg Status: Chronic Current Visit: Yes Code(s): I83.891 - Varicose veins of right lower extremity with other complications; I83.018 - Varicose veins of right lower extremity with ulcer other part of lower leg; R60.9 - Edema, unspecified (8) Arthralgia Status: Chronic Current Visit: Yes Qualifiers: Joint pain location: unspecified Qualified Code(s): M25.50 - Pain in unspecified joint Code(s): M25.50 - Pain in unspecified joint Type of Wound Date of Service: 10/20/17 Chief Complaint: Wounds/ulcers of b/l lower legs History of Wound: Di is a 71 yo female patient of Dr. Smith that presents for evaluation and treatment of lower extremity ulcers that have been present since April. She states that she developed swelling in her legs in April and has not been able to get this under control. In June, she developed wounds/ulcers to her right leg and left leg as blisters developed and then opened. She has been seen by Dr. Pelaez, the ER and her PCP and has had several tests but the wounds/ulcers have not healed. She was also recently admitted at [facility] for this. She complains of severe pain in the wounds and her legs since July. She has indurated areas on her inner thighs and across her right abdomen that are erythematous and tender. She denies being evaluated for any rheumatologic causes of these areas but does state that when she was in the ER in April that they told her that her calcium level was high and they advised her to decrease her calcium and vitamin D. She has been applying telfa pads and using Tray wraps for compression. She states tubigrips applied here previously were too tight. She tries to elevate her legs but has a lot of back pain due to her spinal stenosis. In addition, she gets short of breath if her legs are above her heart. She admits to sleeping and frequently sitting with her legs below her heart. Her Lasix was decreased since discharge from the hospital, and she believes her swelling has worsened. She is not currently taking any antibiotics. She c/o severe pain. She sees Dr. Carbajal for pain management for her spinal stenosis but has not taken any medication or needed medication for her pain in the past. Epidurals have been effective for her spinal stenosis and sciatica in the past. Progress of Wound: Since Di has been seen last she was hospitalized for cellulitis of her b/l LE and was treated for several days with IV antibiotics. She ultimately was found not to have cellulitis and was seen by vascular during her admission and was told she did not have PVD but did have edema that needed to be treated as well as the blistered areas of her LE. She saw Dr. Caraballo in follow up last week at the wound center and is here for weekly follow up and debridement. She continues to have extreme pain in her legs b/l and still has the indurated firm subcutaneous masses present in her thigh areas as well as her lower abdomen. Labs done to evaluate for auto-immune vasculitis vs. calciphylaxis were inconclusive. Her legs have gotten much worse since I saw her last. She now has thick black eschar present with larger wounds. She has difficulty tolerating compression and with elevating her legs as she was advised to do. She is scheduled to follow up with Dr. Pelaez next Monday and with pain management, Dr. Carbajal. 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 Denies fever or chills. - Physical Exam Vital Signs Temp Pulse Resp BP 97.5 F L 78 16 116/68 10/20/17 13:24 10/20/17 13:24 10/20/17 13:24 10/20/17 13:24 General: Alert, Oriented x3, Cooperative, No apparent distress HEENT: Atraumatic, Normocephalic Oral: Moist Mucosa Abdomen: Obese Extremities: Edema Skin: Ulcer/ Wound Wound Measurements and Assessment WC - Nurse 1 - General Ulcer Measurement Start: 09/29/17 11:42 Freq: Status: Active Protocol: Activity Type Activity Date Activity User E-Sign Co-Sign Detail Recorded Client Recorded Date Recorded By Document 10/20/17 13:24 [facility] [id number] 10/20/17 13:33 [facility] 10/20/17 13:24 Wound Center Nurse 1 [Ulcer Assessment Protocol: .WD.LOC] #2 Left calf -Combined with other wound No -Current Size (cm) - Length 7.5 -Current Size (cm) - Width 5.0 -Current Size (cm) - Depth 0.1 -Total Square Cm 37.50 -Photo Taken No -Tunneling No -Undermining/Tunneling No -Exudate Amt Small (1-33%) -Exudate Type Serosanguineous -Wound Margin Distinct, Outline Attached -Granulation Amt None Present (0 %) -Slough/Fibrin Yes -Necrosis Amt Large (67-100%) -Necrotic Tissue Type Adherent Slough -Structure Exposed N/A -Texture (Gabriella-wound Skin Appearance) Scarring -Moisture (Gabriella-wound Skin Appearance Dry/Scaly ) -Color (Gabriella-wound Skin Appearance) Hemosiderin Staining -Temperature (Gabriella-wound Skin No Abnormality Appearance) (Pt Warm) -Tenderness on Palpation (Gabriella-wound Yes Skin Appearance) -Ulcer Cleansing Wound Cleanser -Foul Odor after Cleansing No -Anesthetic Used 4% Lidocaine Solution #1 RIGHT MEDIAL LE CLUSTER -Combined with other wound No -Current Size (cm) - Length 10.9 -Current Size (cm) - Width 7.4 -Current Size (cm) - Depth 0.1 -Total Square Cm 80.66 -Photo Taken No -Epithelialization None Present -Tunneling No -Undermining/Tunneling No -Exudate Amt Small (1-33%) -Exudate Type Serosanguineous -Wound Margin Distinct, Outline Attached -Granulation Amt Small (1-33%) -Granulation Quality Red -Slough/Fibrin Yes -Necrosis Amt Large (67-100%) -Necrotic Tissue Type Eschar -Structure Exposed N/A -Texture (Gabriella-wound Skin Appearance) Scarring -Moisture (Gabriella-wound Skin Appearance Dry/Scaly ) -Color (Gabriella-wound Skin Appearance) Hemosiderin Staining -Temperature (Gabriella-wound Skin No Abnormality Appearance) (Pt Warm) -Tenderness on Palpation (Gabriella-wound Yes Skin Appearance) -Ulcer Cleansing Wound Cleanser -Foul Odor after Cleansing No -Anesthetic Used 4% Lidocaine Solution [Edema Assessment] -Lower Limb Edema Present Yes -Right Calf (cm) 34.5 -Right Ankle (cm) 22 -Left Calf (cm) 35 -Left Ankle (cm) 22.5 WC - Nurse 2 - General Ulcer CM Notes Start: 09/29/17 11:42 Freq: Status: Active Protocol: Activity Type Activity Date Activity User E-Sign Co-Sign Detail Recorded Client Recorded Date Recorded By Document 10/20/17 14:50 [id number] 10/20/17 15:15 10/20/17 14:50 Wound Center Nurse 2 [Procedure/Treatment] #2 Left calf -Time 15:04 -Correct Patient Yes -Correct Side, Site, Position Yes -Correct Procedure Yes -Procedure Performed Yes -Post Debridement Size (cm) - Length 7.5 -Post Debridement Size (cm) - Width 5.0 -Post Debridement Size (cm) - Depth 0.1 -Total Square Cm 37.50 -Wound/Ulcer Outcome Not Healed -Ulcer Cleansing Rinsed/ Irrigated with Saline -Foul Odor after Cleansing No -Bioengineered Tissue No -Cetacaine [place] No -Topical Lidocaine (%) 5 -Bleeding Controlled with NA -Other did not tolerate debridement -Treatment Response Procedure Not Tolerated Well #1 RIGHT MEDIAL LE CLUSTER -Time 15:14 -Correct Patient Yes -Correct Side, Site, Position Yes -Correct Procedure Yes -Procedure Performed Yes -Post Debridement Size (cm) - Length 10.9 -Post Debridement Size (cm) - Width 7.4 -Post Debridement Size (cm) - Depth 0.1 -Total Square Cm 80.66 -Wound/Ulcer Outcome Not Healed -Ulcer Cleansing Rinsed/ Irrigated with Saline -Foul Odor after Cleansing No -Bioengineered Tissue No -Cetacaine [place] No -Topical Lidocaine (%) 5 -Bleeding Controlled with Pressure -Other did not tolerate debridement -Treatment Response Procedure Not Tolerated Well [See Physician Procedure note for Specifics] Pain Scale: 0-10 Numeric [Pain] -Is Patient Pain Free? Yes Psych/Mental Status: Normal Affect, Appropriate Debridement Note Post-Debridement Measurements/Treatment WC - Nurse 2 - General Ulcer CM Notes Start: 09/29/17 11:42 Freq: Status: Active Protocol: Activity Type Activity Date Activity User E-Sign Co-Sign Detail Recorded Client Recorded Date Recorded By Document 10/10/17 13:41 MW [id number] 10/10/17 13:52 Document 10/20/17 14:50 TM [id number] 10/20/17 15:15 10/10/17 10/20/17 13:41 14:50 Wound Center Nurse 2 #2 Left calf -Time 13:42 15:04 -Correct Patient Yes Yes -Correct Side, Site, Position Yes Yes -Correct Procedure Yes Yes -Procedure Performed No Yes -Post Debridement Size (cm) - Length 0.9 7.5 -Post Debridement Size (cm) - Width 1.4 5.0 -Post Debridement Size (cm) - Depth 0.1 0.1 -Total Square Cm 1.26 37.50 -Wound/Ulcer Outcome Not Healed Not Healed -Ulcer Cleansing Rinsed/ Rinsed/ Irrigated with Irrigated with Saline Saline -Foul Odor after Cleansing No No -Bioengineered Tissue No No -Cetacaine [place] No No -Topical Lidocaine (%) 5 -Bleeding Controlled with Pressure NA -Other did not tolerate debridement -Treatment Response Procedure Procedure Not Tolerated Well Tolerated Well #1 RIGHT MEDIAL LE CLUSTER -Time 13:42 15:14 -Correct Patient Yes Yes -Correct Side, Site, Position Yes Yes -Correct Procedure Yes Yes -Procedure Performed No Yes -Post Debridement Size (cm) - Length 7.8 10.9 -Post Debridement Size (cm) - Width 6.2 7.4 -Post Debridement Size (cm) - Depth 0.1 0.1 -Total Square Cm 48.36 80.66 -Wound/Ulcer Outcome Not Healed Not Healed -Ulcer Cleansing Rinsed/ Rinsed/ Irrigated with Irrigated with Saline Saline -Foul Odor after Cleansing No No -Bioengineered Tissue No No -Cetacaine [place] No No -Topical Lidocaine (%) 5 -Bleeding Controlled with Pressure Pressure -Other did not tolerate debridement -Treatment Response Procedure Procedure Not Tolerated Well Tolerated Well Pain Scale: 0-10 Numeric Is Patient Pain Free? 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 ? calciphylaxis vs. erythema nodosum vs. dermatomyositis vs. panniculitis of abdomen and thighs b/l Plan: Di's wounds were evaluated and debridement was attempted but she was not able to tolerate this at all today. Her venous ulcers are much larger in size since previous visit and have worsened in appearance. I have requested that she see Dr. Dee for evaluation of possible surgical debridement under anesthesia. I do not think she will be able to tolerate debridement even with injection of lidocaine locally due to how tender her legs are. Will dress her wounds with Aquacel Ag and and use tubigrips for light compression, increase from size E to size F, but use double layer. Labs reviewed that were ordered due to areas on thighs and abdomen to r/o rheumatologic causes which were inconclusive ESR and CRP were elevated, HASEEB negative, Calcium WNL, PTH was low. Other possibile things to consider would be early calciphylaxis or other vasculitis. She will follow up with Dr. Pelaez and Dr. Carbajal next week. Encouraged her to elevated legs as much as possible, avoid idle sitting or standing, increase activity, as well as weight management. Pt is unable to take PO NSAIDs due to current use of coumadin. She is to call if increased drainage or changes in wounds. F/U in [address] Dee.
[2017-10-25 07:59] VITALS: BP 121/74; PULSE 91; RESP 18; TEMP 36.3; BMI 35.4
--- NOTE | 2017-10-25 08:44 | PCM.WC.PN ---
(1) Edema, lower extremity Status: Chronic Current Visit: Yes Code(s): R60.0 - Localized edema (2) Coumadin-induced coagulopathy Status: Resolved Current Visit: Yes (3) Chronic kidney disease, stage 3 Status: Chronic Current Visit: Yes (4) Venous stasis ulcer of left lower leg with edema of left lower leg Status: Chronic Current Visit: Yes Code(s): I83.892 - Varicose veins of left lower extremity with other complications; I83.028 - Varicose veins of left lower extremity with ulcer other part of lower leg; R60.9 - Edema, unspecified (5) Venous stasis ulcer of right lower leg with edema of right lower leg Status: Chronic Current Visit: Yes Code(s): I83.891 - Varicose veins of right lower extremity with other complications; I83.018 - Varicose veins of right lower extremity with ulcer other part of lower leg; R60.9 - Edema, unspecified Type of Wound Date of Service: 10/25/17 Chief Complaint: Wounds/ulcers of b/l lower legs History of Wound: Di is a 72 yo female patient of Dr. Smith that presents for evaluation and treatment of lower extremity ulcers that have been present since June. She has been seen by Dr. Pelaez and had an arterial doppler; she returns this afternoon to review the results. Her wounds are painful. She has been changing the dressings every other day and denies odor or redness.She is well know to Dr. Carbajal who helps her control the spinal stensos pain. It is also noted that she is on coumadin for atrial fibrillation; her INR is usually between 2 and 3. Progress of Wound: Stable - Physical Exam Vital Signs Temp Pulse Resp BP 97.3 F L 91 18 121/74 H 10/25/17 07:59 10/25/17 07:59 10/25/17 07:59 10/25/17 07:59 General: Alert, Oriented x3, Cooperative Extremities: No cyanosis, Capillary Refill Less than 3 Seconds, No Calf Tenderness - Negative Kimberly and [place] sign bilateral, Diminished Peripheral Pulses - Palpable dorsalis pedis pulses and weaker posterior tibial artery pulses, Edema, Tenderness - Wound and eschar palpation Skin: Ulcer/ Wound - the ulcer sites are healing shaped with eschar dry and well adhered. There is no erythema, no streaking, no purulence, no odor, no acute infection bilateral lower extremities. Her skin is hairless and atrophic bilateral. There is no deep tissue exposed bilateral Wound Measurements and Assessment - Nurse 1 - General Ulcer Measurement Start: 09/29/17 11:42 Freq: Status: Active Protocol: Activity Type Activity Date Activity User E-Sign Co-Sign Detail Recorded Client Recorded Date Recorded By Document 10/25/17 07:59 RB [id number] 10/25/17 08:16 RB 10/25/17 07:59 Wound Center Nurse 1 [Ulcer Assessment Protocol: WC.WD.LOC] #2 Left calf -Combined with other wound No -Current Size (cm) - Length 10.6 -Current Size (cm) - Width 5.4 -Current Size (cm) - Depth 0.1 -Total Square Cm 57.24 -Photo Taken No -Tunneling No -Undermining/Tunneling No -Circular Undermining No -Classification - Thickness Full Thickness without Exposed Support Structure -Exudate Amt None Present (0 %) -Wound Margin Distinct, Outline Attached -Granulation Amt Small (1-33%) -Granulation Quality [place] -Slough/Fibrin Yes -Necrosis Amt Large (67-100%) -Necrotic Tissue Type Adherent Slough -Structure Exposed N/A -Texture (Gabriella-wound Skin Appearance) Assessed -Moisture (Gabriella-wound Skin Appearance Assessed ) -Color (Gabriella-wound Skin Appearance) Assessed -Temperature (Gabriella-wound Skin No Abnormality Appearance) (Pt Warm) -Tenderness on Palpation (Gabriella-wound No Skin Appearance) -Ulcer Cleansing Rinsed/ Irrigated with Saline -Foul Odor after Cleansing No -Anesthetic Used 5% Lidocaine Gel #1 RIGHT MEDIAL LE CLUSTER -Combined with other wound No -Current Size (cm) - Length 12.6 -Current Size (cm) - Width 18.5 -Current Size (cm) - Depth 0.1 -Total Square Cm 233.10 -Photo Taken No -Epithelialization None Present -Tunneling No -Undermining/Tunneling No -Circular Undermining No -Classification - Thickness Full Thickness without Exposed Support Structure -Exudate Amt None Present (0 %) -Wound Margin Distinct, Outline Attached -Granulation Amt Small (1-33%) -Granulation Quality [place] -Slough/Fibrin Yes -Necrosis Amt Large (67-100%) -Necrotic Tissue Type Eschar -Structure Exposed N/A -Texture (Gabriella-wound Skin Appearance) Assessed -Moisture (Gabriella-wound Skin Appearance Assessed ) -Color (Gabriella-wound Skin Appearance) Assessed -Temperature (Gabriella-wound Skin No Abnormality Appearance) (Pt Warm) -Tenderness on Palpation (Gabriella-wound No Skin Appearance) -Ulcer Cleansing Rinsed/ Irrigated with Saline -Foul Odor after Cleansing No -Anesthetic Used 5% Lidocaine Gel [Edema Assessment] -Lower Limb Edema Present Yes -Right Calf (cm) 38.4 -Right Ankle (cm) 24 -Left Calf (cm) 37.5 -Left Ankle (cm) 24 - Nurse 2 - General Ulcer CM Notes Start: 09/29/17 11:42 Freq: Status: Active Protocol: Activity Type Activity Date Activity User E-Sign Co-Sign Detail Recorded Client Recorded Date Recorded By Document 10/25/17 08:27 [id number] 10/25/17 08:36 10/25/17 08:27 Wound Center Nurse 2 [Procedure/Treatment] #2 Left calf -Correct Patient No -Correct Side, Site, Position No -Correct Procedure No -Procedure Performed No #1 RIGHT MEDIAL LE CLUSTER -Correct Patient No -Correct Side, Site, Position No -Correct Procedure No -Procedure Performed No -Bleeding Controlled with NA [See Physician Procedure note for Specifics] Pain Scale: 0-10 Numeric [Pain] -Is Patient Pain Free? Yes Musculoskeletal: No Tenderness to Palpation of Joints or Extremities, Muscle Wasting, - - The compartments of the lower extremity are soft to palpation. Lymphatic: - - varicosities noted to bilateral legs and ankles Neurological: Sensory exam intact to light touch and pain Psych/Mental Status: Normal Affect, Appropriate Debridement Note Post-Debridement Measurements/Treatment - Nurse 2 - General Ulcer CM Notes Start: 09/29/17 11:42 Freq: Status: Active Protocol: Activity Type Activity Date Activity User E-Sign Co-Sign Detail Recorded Client Recorded Date Recorded By Document 10/10/17 13:41 MW [id number] 10/10/17 13:52 MW Document 10/20/17 14:50 TM [id number] 10/20/17 15:15 TM Document 10/25/17 08:27 [id number] 10/25/17 08:36 10/10/17 10/20/17 10/25/17 13:41 14:50 08:27 Wound Center Nurse 2 #2 Left calf -Time 13:42 15:04 -Correct Patient Yes Yes No -Correct Side, Site, Position Yes Yes No -Correct Procedure Yes Yes No -Procedure Performed No Yes No -Post Debridement Size (cm) - Length 0.9 7.5 -Post Debridement Size (cm) - Width 1.4 5.0 -Post Debridement Size (cm) - Depth 0.1 0.1 -Total Square Cm 1.26 37.50 -Wound/Ulcer Outcome Not Healed Not Healed -Ulcer Cleansing Rinsed/ Rinsed/ Irrigated with Irrigated with Saline Saline -Foul Odor after Cleansing No No -Bioengineered Tissue No No -Cetacaine [place] No No -Topical Lidocaine (%) 5 -Bleeding Controlled with Pressure NA -Other did not tolerate debridement -Treatment Response Procedure Procedure Not Tolerated Well Tolerated Well #1 RIGHT MEDIAL LE CLUSTER -Time 13:42 15:14 -Correct Patient Yes Yes No -Correct Side, Site, Position Yes Yes No -Correct Procedure Yes Yes No -Procedure Performed No Yes No -Post Debridement Size (cm) - Length 7.8 10.9 -Post Debridement Size (cm) - Width 6.2 7.4 -Post Debridement Size (cm) - Depth 0.1 0.1 -Total Square Cm 48.36 80.66 -Wound/Ulcer Outcome Not Healed Not Healed -Ulcer Cleansing Rinsed/ Rinsed/ Irrigated with Irrigated with Saline Saline -Foul Odor after Cleansing No No -Bioengineered Tissue No No -Cetacaine [place] No No -Topical Lidocaine (%) 5 -Bleeding Controlled with Pressure Pressure NA -Other did not tolerate debridement -Treatment Response Procedure Procedure Not Tolerated Well Tolerated Well Pain Scale: 0-10 Numeric Is Patient Pain Free? 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 Delayed healing. venous insufficiency. Malnutrition suspected. Lower extremity pain Plan: Di's wounds were evaluated she was not able to tolerate any type of debridement today. I performed a chart review on her case and discussed her progress this morning. She was referred to me for evaluation and consideration of surgical debridement in the operating room. The referral is appreciated. She is demonstrating significant delays in healing and is unable to tolerate debridements due to pain. Continue to use tubigrips for light compression. Labs reviewed which were inconclusive ESR and CRP were elevated, HASEEB negative, Calcium WNL, PTH was low. She has wounds on other areas of her body which were not evaluated today. She will follow up with Dr. Pelaez afternoon for evaluation of her arterial Doppler exam which appeared to have distal perfusion. Continue to follow up with Dr. Carbajal as scheduled for pain management. Encouraged her to elevated legs as much as possible, avoid idle sitting or standing, increase activity, as well as weight management. She is to call if increased drainage or changes in wounds. F/U in [address] kevin for preoperative history and physical exam. My surgical elastic knitter hand frame will also contact her in regards to scheduling her for versa jet wound debridement with application of advanced wound care product. We discussed the application of an amniotic cord cell derived product to facilitate faster healing. She is amenable. She understands the preoperative indications, planned procedure, possible benefits, risks, complications, and anticipated healing time and management. She understands this will still be a staged comprehensive wound healing program. Answered all her questions. Surgical consents will need to be signed. Anticipated anesthesia is MAC and local. Therefore I recommend the following preoperative screening tests: EKG, CBC, BMP, and coags. These will be reviewed prior to proceeding. I do not anticipate the need for Coumadin discontinuation during the perioperative period.
--- NOTE | 2017-10-25 08:51 | PN.PCM_ITS ---
(1) Edema, lower extremity Status: Chronic Current Visit: Yes Code(s): R60.0 - Localized edema (2) Coumadin-induced coagulopathy Status: Resolved Current Visit: Yes (3) Chronic kidney disease, stage 3 Status: Chronic Current Visit: Yes (4) Venous stasis ulcer of left lower leg with edema of left lower leg Status: Chronic Current Visit: Yes Code(s): I83.892 - Varicose veins of left lower extremity with other complications; I83.028 - Varicose veins of left lower extremity with ulcer other part of lower leg; R60.9 - Edema, unspecified (5) Venous stasis ulcer of right lower leg with edema of right lower leg Status: Chronic Current Visit: Yes Code(s): I83.891 - Varicose veins of right lower extremity with other complications; I83.018 - Varicose veins of right lower extremity with ulcer other part of lower leg; R60.9 - Edema, unspecified Type of Wound Date of Service: 10/25/17 Chief Complaint: Wounds/ulcers of b/l lower legs History of Wound: Di is a 72 yo female patient of Dr. Smith that presents for evaluation and treatment of lower extremity ulcers that have been present since June. She has been seen by Dr. Pelaez and had an arterial doppler; she returns this afternoon to review the results. Her wounds are painful. She has been changing the dressings every other day and denies odor or redness.She is well know to Dr. Carbajal who helps her control the spinal stensos pain. It is also noted that she is on coumadin for atrial fibrillation; her INR is usually between 2 and 3. Progress of Wound: Stable - Physical Exam Vital Signs Temp Pulse Resp BP 97.3 F L 91 18 121/74 H 10/25/17 07:59 10/25/17 07:59 10/25/17 07:59 10/25/17 07:59 General: Alert, Oriented x3, Cooperative Extremities: No cyanosis, Capillary Refill Less than 3 Seconds, No Calf Tenderness - Negative Kimberly and Layton sign bilateral, Diminished Peripheral Pulses - Palpable dorsalis pedis pulses and weaker posterior tibial artery pulses, Edema, Tenderness - Wound and eschar palpation Skin: Ulcer/ Wound - the ulcer sites are healing shaped with eschar dry and well adhered. There is no erythema, no streaking, no purulence, no odor, no acute infection bilateral lower extremities. Her skin is hairless and atrophic bilateral. There is no deep tissue exposed bilateral Wound Measurements and Assessment - Nurse 1 - General Ulcer Measurement Start: 09/29/17 11:42 Freq: Status: Active Protocol: Activity Type Activity Date Activity User E-Sign Co-Sign Detail Recorded Client Recorded Date Recorded By Document 10/25/17 07:59 RB [id number] 10/25/17 08:16 RB 10/25/17 07:59 Wound Center Nurse 1 [Ulcer Assessment Protocol: WC.WD.LOC] #2 Left calf -Combined with other wound No -Current Size (cm) - Length 10.6 -Current Size (cm) - Width 5.4 -Current Size (cm) - Depth 0.1 -Total Square Cm 57.24 -Photo Taken No -Tunneling No -Undermining/Tunneling No -Circular Undermining No -Classification - Thickness Full Thickness without Exposed Support Structure -Exudate Amt None Present (0 %) -Wound Margin Distinct, Outline Attached -Granulation Amt Small (1-33%) -Granulation Quality Brundage -Slough/Fibrin Yes -Necrosis Amt Large (67-100%) -Necrotic Tissue Type Adherent Slough -Structure Exposed N/A -Texture (Gabriella-wound Skin Appearance) Assessed -Moisture (Gabriella-wound Skin Appearance Assessed ) -Color (Gabriella-wound Skin Appearance) Assessed -Temperature (Gabriella-wound Skin No Abnormality Appearance) (Pt Warm) -Tenderness on Palpation (Gabriella-wound No Skin Appearance) -Ulcer Cleansing Rinsed/ Irrigated with Saline -Foul Odor after Cleansing No -Anesthetic Used 5% Lidocaine Gel #1 RIGHT MEDIAL LE CLUSTER -Combined with other wound No -Current Size (cm) - Length 12.6 -Current Size (cm) - Width 18.5 -Current Size (cm) - Depth 0.1 -Total Square Cm 233.10 -Photo Taken No -Epithelialization None Present -Tunneling No -Undermining/Tunneling No -Circular Undermining No -Classification - Thickness Full Thickness without Exposed Support Structure -Exudate Amt None Present (0 %) -Wound Margin Distinct, Outline Attached -Granulation Amt Small (1-33%) -Granulation Quality Brundage -Slough/Fibrin Yes -Necrosis Amt Large (67-100%) -Necrotic Tissue Type Eschar -Structure Exposed N/A -Texture (Gabriella-wound Skin Appearance) Assessed -Moisture (Gabriella-wound Skin Appearance Assessed ) -Color (Gabriella-wound Skin Appearance) Assessed -Temperature (Gabriella-wound Skin No Abnormality Appearance) (Pt Warm) -Tenderness on Palpation (Gabriella-wound No Skin Appearance) -Ulcer Cleansing Rinsed/ Irrigated with Saline -Foul Odor after Cleansing No -Anesthetic Used 5% Lidocaine Gel [Edema Assessment] -Lower Limb Edema Present Yes -Right Calf (cm) 38.4 -Right Ankle (cm) 24 -Left Calf (cm) 37.5 -Left Ankle (cm) 24 - Nurse 2 - General Ulcer CM Notes Start: 09/29/17 11:42 Freq: Status: Active Protocol: Activity Type Activity Date Activity User E-Sign Co-Sign Detail Recorded Client Recorded Date Recorded By Document 10/25/17 08:27 [id number] 10/25/17 08:36 10/25/17 08:27 Wound Center Nurse 2 [Procedure/Treatment] #2 Left calf -Correct Patient No -Correct Side, Site, Position No -Correct Procedure No -Procedure Performed No #1 RIGHT MEDIAL LE CLUSTER -Correct Patient No -Correct Side, Site, Position No -Correct Procedure No -Procedure Performed No -Bleeding Controlled with NA [See Physician Procedure note for Specifics] Pain Scale: 0-10 Numeric [Pain] -Is Patient Pain Free? Yes Musculoskeletal: No Tenderness to Palpation of Joints or Extremities, Muscle Wasting, - - The compartments of the lower extremity are soft to palpation. Lymphatic: - - varicosities noted to bilateral legs and ankles Neurological: Sensory exam intact to light touch and pain Psych/Mental Status: Normal Affect, Appropriate Debridement Note Post-Debridement Measurements/Treatment - Nurse 2 - General Ulcer CM Notes Start: 09/29/17 11:42 Freq: Status: Active Protocol: Activity Type Activity Date Activity User E-Sign Co-Sign Detail Recorded Client Recorded Date Recorded By Document 10/10/17 13:41 MW [id number] 10/10/17 13:52 MW Document 10/20/17 14:50 TM [id number] 10/20/17 15:15 TM Document 10/25/17 08:27 [id number] 10/25/17 08:36 10/10/17 10/20/17 10/25/17 13:41 14:50 08:27 Wound Center Nurse 2 #2 Left calf -Time 13:42 15:04 -Correct Patient Yes Yes No -Correct Side, Site, Position Yes Yes No -Correct Procedure Yes Yes No -Procedure Performed No Yes No -Post Debridement Size (cm) - Length 0.9 7.5 -Post Debridement Size (cm) - Width 1.4 5.0 -Post Debridement Size (cm) - Depth 0.1 0.1 -Total Square Cm 1.26 37.50 -Wound/Ulcer Outcome Not Healed Not Healed -Ulcer Cleansing Rinsed/ Rinsed/ Irrigated with Irrigated with Saline Saline -Foul Odor after Cleansing No No -Bioengineered Tissue No No -Cetacaine Genoa No No -Topical Lidocaine (%) 5 -Bleeding Controlled with Pressure NA -Other did not tolerate debridement -Treatment Response Procedure Procedure Not Tolerated Well Tolerated Well #1 RIGHT MEDIAL LE CLUSTER -Time 13:42 15:14 -Correct Patient Yes Yes No -Correct Side, Site, Position Yes Yes No -Correct Procedure Yes Yes No -Procedure Performed No Yes No -Post Debridement Size (cm) - Length 7.8 10.9 -Post Debridement Size (cm) - Width 6.2 7.4 -Post Debridement Size (cm) - Depth 0.1 0.1 -Total Square Cm 48.36 80.66 -Wound/Ulcer Outcome Not Healed Not Healed -Ulcer Cleansing Rinsed/ Rinsed/ Irrigated with Irrigated with Saline Saline -Foul Odor after Cleansing No No -Bioengineered Tissue No No -Cetacaine Genoa No No -Topical Lidocaine (%) 5 -Bleeding Controlled with Pressure Pressure NA -Other did not tolerate debridement -Treatment Response Procedure Procedure Not Tolerated Well Tolerated Well Pain Scale: 0-10 Numeric Is Patient Pain Free? 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 Delayed healing. venous insufficiency. Malnutrition suspected. Lower extremity pain Plan: Di's wounds were evaluated she was not able to tolerate any type of debridement today. I performed a chart review on her case and discussed her progress this morning. She was referred to me for evaluation and consideration of surgical debridement in the operating room. The referral is appreciated. She is demonstrating significant delays in healing and is unable to tolerate debridements due to pain. Continue to use tubigrips for light compression. Labs reviewed which were inconclusive ESR and CRP were elevated, HASEEB negative, Calcium WNL, PTH was low. She has wounds on other areas of her body which were not evaluated today. She will follow up with Dr. Pelaez afternoon for evaluation of her arterial Doppler exam which appeared to have distal perfusion. Continue to follow up with Dr. Carbajal as scheduled for pain management. Encouraged her to elevated legs as much as possible, avoid idle sitting or standing, increase activity, as well as weight management. She is to call if increased drainage or changes in wounds. F/U in [address] kevin for preoperative history and physical exam. My costume shop coordinator will also contact her in regards to scheduling her for versa jet wound debridement with application of advanced wound care product. We discussed the application of an amniotic cord cell derived product to facilitate faster healing. She is amenable. She understands the preoperative indications, planned procedure, possible benefits, risks, complications, and anticipated healing time and management. She understands this will still be a staged comprehensive wound healing program. Answered all her questions. Surgical consents will need to be signed. Anticipated anesthesia is MAC and local. Therefore I recommend the following preoperative screening tests: EKG, CBC, BMP , and coags. These will be reviewed prior to proceeding. I do not anticipate the need for Coumadin discontinuation during the perioperative period.
== END 2017-10-25 23:59 ==
LOC: WC 08:00
PROVIDERS: Internal Medicine Nephrology; Family Provider Internal Medicine; PCP Internal Medicine; Visit Provider Family Medicine
DX: E11.622 Type 2 diabetes mellitus with other skin ulcer (principal); E11.51 Type 2 diabetes mellitus with diabetic peripheral angiopathy without gangrene; E11.22 Type 2 diabetes mellitus with diabetic chronic kidney disease; N18.3 Chronic kidney disease, stage 3 (moderate); M48.061 Spinal stenosis, lumbar region without neurogenic claudication; R60.0 Localized edema; I83.018 Varicose veins of right lower extremity with ulcer other part of lower leg; L97.819 Non-pressure chronic ulcer of other part of right lower leg with unspecified severity; M79.89 Other specified soft tissue disorders; I83.028 Varicose veins of left lower extremity with ulcer other part of lower leg; L97.829 Non-pressure chronic ulcer of other part of left lower leg with unspecified severity; L97.229 Non-pressure chronic ulcer of left calf with unspecified severity; D68.32 Hemorrhagic disorder due to extrinsic circulating anticoagulants; T45.515A Adverse effect of anticoagulants, initial encounter
CPT/HCPCS: 36415; 80069; 82306; 99213; 99214; G0463

== ENCOUNTER 2017-11-13 09:16 | Outpatient (RCR) | payer MEDICARE, SELFPAY ==
[2017-10-25 07:59] VITALS: BP 121/74
[2017-11-01 09:56] LABS: Prothrombin Time Fingerstick 34.1 SEC (11.9-14.4)
[2017-11-08 11:35] LABS: Prothrombin Time (Protime)PT. 73.8 SECONDS (11.7-14.9)
[2017-11-08 11:39] LABS: International Normalized Ratio 9.6
[2017-11-08 12:09] LABS: Hemoglobin A1c 6.9 % (4.2-6.3)
[2017-11-08 12:17] LABS: Anion Gap 12 (5-15); BUN 18 mg/dL (7-18); BUN/Creat Ratio 11.8 RATIO (10-20); Calcium,Total 9.3 mg/dL (8.5-10.1); Chloride 97 mmol/L (98-107); Creatinine, Serum 1.53 mg/dL (0.55-1.02); EST Glomerular Filtration Rate 36 mL/min (>60); Est Glom Filt Rate - Afr Amer 43 mL/min (>60); Glucose 91 mg/dL (74-106); Potassium 3.1 mmol/L (3.5-5.1); Sodium Level 136 mmol/L (136-145)
[2017-11-10 09:11] LABS: Prothrombin Time (Protime)PT. 45.3 SECONDS (11.7-14.9)
[2017-11-10 09:17] LABS: International Normalized Ratio 5.1
[2017-11-13 11:26] LABS: International Normalized Ratio 2.6
== END 2017-11-13 10:00 | disposition home or self-care (01) ==
LOC: LAB 09:16
PROVIDERS: Family Provider Internal Medicine; PCP Internal Medicine; Visit Provider Internal Medicine Cardiovascular Disease
DX: E11.622 Type 2 diabetes mellitus with other skin ulcer (principal); E11.51 Type 2 diabetes mellitus with diabetic peripheral angiopathy without gangrene; I13.0 Hypertensive heart and chronic kidney disease with heart failure and stage 1 through stage 4 chronic kidney disease, or unspecified chronic kidney disease; I50.32 Chronic diastolic (congestive) heart failure; N18.3 Chronic kidney disease, stage 3 (moderate); E11.22 Type 2 diabetes mellitus with diabetic chronic kidney disease; I48.2 Chronic atrial fibrillation; Z79.01 Long term (current) use of anticoagulants; M48.061 Spinal stenosis, lumbar region without neurogenic claudication; I83.018 Varicose veins of right lower extremity with ulcer other part of lower leg; I83.028 Varicose veins of left lower extremity with ulcer other part of lower leg; L97.819 Non-pressure chronic ulcer of other part of right lower leg with unspecified severity; L97.829 Non-pressure chronic ulcer of other part of left lower leg with unspecified severity; Z79.899 Other long term (current) drug therapy; Z79.82 Long term (current) use of aspirin; Z79.84 Long term (current) use of oral hypoglycemic drugs; I48.91 Unspecified atrial fibrillation
CPT/HCPCS: 36415; 36416; 80048; 83036; 85610; 97602; 99214; G0463

== ENCOUNTER → 2017-11-17 09:57 | Outpatient (CLI) | payer MEDICARE, SELFPAY ==
--- NOTE | 2017-11-17 09:59 | HPBI_ITS ---
MAMMOGRAPHY - BILATERAL SCREENING REASON FOR EXAM: Female, 72 years old. Routine annual screening examination. PERTINENT HISTORY: Non-contributory. TECHNIQUE: Digital bilateral breast danielle (3D mammographic acquisition) in the CC and MLO projections. 2-D mediolateral oblique (MLO) and craniocaudad (CC) views of both breasts were obtained. CAD: Full Field Digital Mammography with Computer Added Detection was performed. COMPARISON: Comparison is made with prior study dated November 16, 2016. FINDINGS: Breast Composition: The breasts are heterogeneously dense, which may obscure small masses. There are no dominant masses or suspicious calcifications. A recording device is seen overlying the deep mid medial portion of the left breast. Stable appearance of the bilateral secretory and vascular calcifications. No other significant abnormalities are identified. There has been no significant change since the prior study. HPBI/SCREENING MAMM (CAD), BILAT IMPRESSION: Stable bilateral screening mammogram. Yearly follow-up mammogram recommended. (A) ASSESSMENT CATEGORY: BIRADS Category 2: Benign. A letter regarding these results will be sent to the patient by the facility within 30 days. Approximately 10% of breast cancers are not detected by mammography. A normal mammogram should not delay biopsy of a clinically suspicious abnormality. [id number] Electronically Signed: Carlos Cai MD at 11:29 EST Tel [phone], Service support ,
== END ==
PROVIDERS: Family Provider Internal Medicine; PCP Internal Medicine; Visit Provider Internal Medicine
DX: Z12.31 Encounter for screening mammogram for malignant neoplasm of breast (principal)
CPT/HCPCS: 77063; 77067

== ENCOUNTER 2017-11-18 21:24 | Emergency (ER) | payer MEDICARE, SELFPAY ==
[2017-11-18 21:24] VITALS: BP 141/65; PULSE 110; RESP 15; TEMP 37.2; BMI 32.2
--- NOTE | 2017-11-18 22:11 | ED.VISSUMM ---
- ER Visit Summary Date of Service: 11/18/17 Chief Complaint: Bilateral leg ulcers History of Present Illness: The patient is a 72 F with bilateral leg ulcers. She has been going to the wound center weekly. Tonight daughter noted some blue/green drainage on the dressing so they wanted to have her wounds checked. She has not had fever or other constitutional symptoms. Physical Examination: Vital signs are gross unremarkable. Patient sitting upright in bed no acute distress. She is nontoxic appearing. Lower external examination reveals bilateral leg ulcers, right leg worse than left. Edges are clean at this time. There is some serosanguineous drainage. I see no sign of secondary infection. Test Results: [] Emergency Department Course and Treatment: Family is reassured. New dressings are applied by the daughter. Patient is to follow-up on Monday at the wound care center as planned. Treatment Plan: [] Disposition: Discharge Impression: Wound check This note was generated with [employer] dictation software. It may contain incorrect words, spelling, and punctuation that were not noted in review of the chart prior to signing ED Disposition - Plan for ED Patient: Chief Complaint: Lower Extremity Injury Referrals: Aaron Tidwell MD [Primary Care Provider] -
--- NOTE | 2017-11-18 22:13 | ED.DEP ---
ED Disposition - Plan for ED Patient: Disposition: Home or Assisted Living Chief Complaint: Lower Extremity Injury Instructions: ED Ulcer Venous Leg Referrals: Aaron Tidwell MD [Primary Care Provider] - Additional Instructions: Follow-up with Wound Care Center on Monday as scheduled.
[2017-11-18 22:25] VITALS: RESP 18
[2017-11-18] MEDS: Collagenase 30gm Tube 1 APPLIC TOPICAL (22:25)
== END 2017-11-18 23:20 | disposition home or self-care (01) ==
PROVIDERS: Emergency Provider Emergency Medicine; Family Provider Internal Medicine; PCP Internal Medicine
DX: L97.929 Non-pressure chronic ulcer of unspecified part of left lower leg with unspecified severity (principal); L97.919 Non-pressure chronic ulcer of unspecified part of right lower leg with unspecified severity; I50.9 Heart failure, unspecified; I27.20 Pulmonary hypertension, unspecified; I73.9 Peripheral vascular disease, unspecified; R60.0 Localized edema; M79.605 Pain in left leg; M79.604 Pain in right leg; Z79.82 Long term (current) use of aspirin; Z79.02 Long term (current) use of antithrombotics/antiplatelets; Z79.891 Long term (current) use of opiate analgesic
CPT/HCPCS: 99282

== ENCOUNTER 2017-11-22 08:45 | Outpatient (RCR) | payer MEDICARE, SELFPAY ==
[2017-10-25 07:59] VITALS: BP 121/74
[2017-10-26 00:59] VITALS: PULSE 91; RESP 18; TEMP 36.3
[2017-10-27 15:59] VITALS: BP 110/68; PULSE 95; RESP 16; TEMP 36.4; BMI 35.4
--- NOTE | 2017-10-27 16:00 | WC ---
WOUNDS NOT ASSESSED DURING VISIT. PT IS HERE FOR H & P BY DR FERNANDES FOR UPCOMING SURGERY.
--- NOTE | 2017-10-27 19:36 | PCM.WC.HP ---
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 Current Visit: Yes Code(s): Z79.01 - 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 (current) use of anticoagulants (6) Chronic atrial fibrillation Status: Chronic Current Visit: Yes Code(s): I48.2 - Chronic atrial fibrillation Comment: [facility] 10/10, 10/2015; MAZE procedure @ [place] 01/12/2017; (7) Chronic diastolic (congestive) heart failure Status: Chronic Current Visit: Yes Code(s): I50.32 - Chronic diastolic (congestive) heart failure (8) Hypertension Status: Chronic Current Visit: Yes Qualifiers: Hypertension type: essential hypertension Qualified Code(s): I10 - Essential (primary) hypertension Code(s): I10 - Essential (primary) hypertension (9) Type 2 diabetes mellitus Status: Chronic Current Visit: Yes Qualifiers: Diabetes mellitus complication status: with kidney complications Diabetes mellitus complication detail: with chronic kidney disease Diabetes mellitus residential insulin use: without residential use Chronic kidney disease stage: stage 3 (moderate) Qualified Code(s): E11.22 - Type 2 diabetes mellitus with diabetic chronic kidney disease; N18.3 - Chronic kidney disease, stage 3 (moderate) Code(s): E11.9 - Type 2 diabetes mellitus without complications (10) Chronic kidney disease, stage 3 Status: Chronic Current Visit: Yes (11) Spinal stenosis of lumbar region with radiculopathy Status: Chronic Current Visit: Yes Code(s): M48.061 - Spinal stenosis, lumbar region without neurogenic claudication; M54.16 - Radiculopathy, lumbar region (12) PAD (peripheral artery disease) Status: Chronic Current Visit: Yes Code(s): I73.9 - Peripheral vascular disease, unspecified (13) Venous stasis ulcer of left lower leg with edema of left lower leg Status: Chronic Current Visit: Yes Code(s): I83.892 - Varicose veins of left lower extremity with other complications; I83.028 - Varicose veins of left lower extremity with ulcer other part of lower leg; R60.9 - Edema, unspecified (14) Venous stasis ulcer of right lower leg with edema of right lower leg Status: Chronic Current Visit: Yes Code(s): I83.891 - Varicose veins of right lower extremity with other complications; I83.018 - Varicose veins of right lower extremity with ulcer other part of lower leg; R60.9 - Edema, unspecified History of Present Illness Date of Service: 10/27/17 Chief Complaint: Wounds/ulcers of b/l lower legs History of Wound: Di is a 72 yo female patient of Dr. Smith that presents for evaluation and treatment of lower extremity ulcers that have been present since June. Her wounds are very painful. She has been changing the dressings every other day and denies odor or redness. She was seen by Dr. Dee for consultation for possible surgical debridement and is here today for pre-operative medical clearance. She has been seen by Dr. Pelaez and had an arterial doppler which did not show any significant stenosis and showed biphasic waveforms in LE. She was unable to tolerate WILVER testing. Her venous studies showed incompetent left SFJ. She will follow up with Dr. Pelaez regarding the results of this testing for possible procedure to address SFJ incompetence. She is well known to Dr. Carbajal who helps her control the spinal stenosis pain. She follows with Dr. Childers for cardiology and was recently seen by his nurse practitioner for routine follow up. She recently saw Dr. 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 It is also noted that she is on coumadin for atrial fibrillation; her INR is usually between 2 and 3, Last INR was 2.10 on 10/17/17. She is scheduled to have next INR on 11/01/17. Last EKG was on 09/26/17 and showed rate controlled A. fib with no acute S-T changes. Last CBC was 10/03/17 with hgb 9.1 and hct 29.2, which is her baseline. Last CMP done on 10/10/17 with creatinine 1.82. Last A1C 05/2017 which was 6.5%. 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 10/10, 10/2015; MAZE procedure @ [place] 01/12/2017; Status post placement of implantable loop recorder (Chronic) History of maze procedure (Chronic) Other secondary pulmonary hypertension (Chronic) Chronic diastolic (congestive) heart failure (Chronic) Symptomatic anemia (Chronic) Hypertension (Chronic) Type 2 diabetes mellitus (Chronic) Lung nodule (Chronic) Chronic kidney disease, stage 3 (Chronic) 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 calciphylaxis vs. erythema nodosum vs. dermatomyositis vs. panniculitis Mass of soft tissue of right lower extremity (Chronic) right inner upper thigh - ? calciphylaxis vs. erythema nodosum vs. dermatomyositis vs. panniculitis Surgical History: cataract, cholecystectomy, hysterectomy, - Allergies/Adverse Reactions: Allergies amlodipine besylate [From Norvasc] Allergy (Verified 10/07/17 09:31) Unknown Shortness of breath ceftriaxone Allergy (Verified 10/07/17 09:31) Rash doxazosin mesylate [From Cardura] Allergy (Verified 10/07/17 09:31) Unknown Pt doesn't remember doxycycline Allergy (Verified 10/07/17 09:31) Unknown Pt doesn't remember enalapril maleate [From Vasotec] Allergy (Verified 10/07/17 09:31) Rash enalaprilat dihydrate [From Vasotec] Allergy (Verified 10/07/17 09:31) Rash hydroxyzine HCl [From Vistaril] Allergy (Verified 10/07/17 09:31) Rash hydroxyzine pamoate [From Vistaril] Allergy (Verified 10/07/17 09:31) Rash meperidine HCl [From Demerol] Allergy (Verified 10/07/17 09:31) Rash Sulfa (Sulfonamide Antibiotics) Allergy (Verified 10/07/17 09:31) Hives sulfamethoxazole [From Bactrim] Allergy (Verified 10/07/17 09:31) Hives trimethoprim [From Bactrim] Allergy (Verified 10/07/17 09:31) Hives Home Medications: Ambulatory Orders Medication Instructions Recorded Metoprolol Tartrate [Lopressor 12.5 mg PO BID #90 tab 11/06/15 (beta alok)] Aspirin [Adult Low Dose Aspirin EC] 81 mg PO DAILY 03/03/17 warfarin 4 mg tablet 4 mg PO MOWEFR 09/28/17 Gabapentin [Neurontin] 100 mg PO 4X/DAY 09/29/17 Warfarin [Coumadin] 2 mg PO SUTUTHSA 09/29/17 Fluoxetine [Prozac] 20 mg PO DAILY 09/30/17 furosemide 40 mg tablet 40 mg PO QDAY tab 10/11/17 oxycodone 10 mg tablet 10 mg PO ONCE 10/11/17 Metformin HCl 500 mg PO DAILY 10/27/17 - Family History Maternal Family History: Family History (Last Reviewed 10/27/17 @ 19:40 by Mcehe Delvalle DO) Mother Diabetes Brother Diabetes Son Hypertension Daughter Arthritis Diabetes Hypertension Paternal Family History: Family History (Last Reviewed 10/27/17 @ 19:40 by Meche Delvalle DO) Mother Diabetes Brother Diabetes Son Hypertension Daughter Arthritis Diabetes Hypertension Lives: Spouse/ Significant Other Smoking Status: Never smoker Tobacco Use: Non-smoker Alcohol: None Drugs: None Review of Systems Constitutional: Denies: Chills, Fever, Weight Change Eyes: Denies: Pain, Vision Change HEENT: Reports: Difficulty Hearing. Denies: Nasal Congestion, Sinus Drainage, Sore Throat Cardiovascular: Denies: Chest Pain, Palpitations Respiratory: Denies: Cough, Shortness of Breath Gastrointestinal: Denies: Diarrhea, Nausea, Vomiting Genitourinary: Denies: Dysuria, Hematuria Musculoskeletal: Reports: Joint Pain, Leg Pain Skin: Reports: Wounds Neurological: Reports: Numbness, Tingling Psychiatric: Reports: Anxiety, Depression Endocrine: Reports: Heat/ Cold Intolerance Hematologic/ Lymphatic: Reports: Easy Bruising, Easy Bleeding - Physical Exam Vital Signs Temp Pulse Resp BP 97.5 F L 95 16 110/68 10/27/17 15:59 10/27/17 15:59 10/27/17 15:59 10/27/17 15:59 General: Alert, Oriented x3, Cooperative, No apparent distress HEENT: Atraumatic, EOMI, Normocephalic Oral: Moist Mucosa Neck: Supple, No JVD, Negative Carotid Bruits Lungs: Clear to auscultation Cardiovascular: Regular rate, Regular Rhythm Abdomen: Bowel Sounds Present, Soft, Non Tender, Non-Distended, Obese Extremities: Edema, Tenderness Skin: Ulcer/ Wound Wound Measurements and Assessment WC - Nurse 2 - General Ulcer CM Notes Start: 10/27/17 15:59 Freq: Status: Active Protocol: Activity Type Activity Date Activity User E-Sign Co-Sign Detail Recorded Client Recorded Date Recorded By Document 10/27/17 16:51 [id number] 10/27/17 16:55 10/27/17 16:51 Wound Center Nurse 2 [Procedure/Treatment] #2 Left calf -Time 16:51 -Correct Patient Yes -Correct Side, Site, Position Yes -Correct Procedure Yes -Procedure Performed Yes -Wound/Ulcer Outcome Not Healed -Ulcer Cleansing Not Cleansed -Bioengineered Tissue No -Cetacaine Riley No -Bleeding Controlled with NA -Other NO DEBRIDEMENT TODAY H&P FOR SURGERY CLEARANCE #1 RIGHT MEDIAL LE CLUSTER -Time 16:52 -Correct Patient Yes -Correct Side, Site, Position Yes -Correct Procedure Yes -Procedure Performed Yes -Wound/Ulcer Outcome Not Healed -Ulcer Cleansing Not Cleansed -Foul Odor after Cleansing No -Bioengineered Tissue No -Cetacaine Riley No -Bleeding Controlled with NA -Other NO DEBRIDEMENT TODAY H&P FOR SURGERY CLEARANCE [See Physician Procedure note for Specifics] Pain Scale: 0-10 Numeric [Pain] -Is Patient Pain Free? Yes Musculoskeletal: Tenderness Neurological: Unsteady Gait Psych/Mental Status: Normal Affect, Appropriate, Alert and oriented to time, place, person, mood and affect Debridement Note Post-Debridement Measurements/Treatment WC - Nurse 2 - General Ulcer CM Notes Start: 10/27/17 15:59 Freq: Status: Active Protocol: Activity Type Activity Date Activity User E-Sign Co-Sign Detail Recorded Client Recorded Date Recorded By Document 10/27/17 16:51 [id number] 10/27/17 16:55 TM 10/27/17 16:51 Wound Center Nurse 2 #2 Left calf -Time 16:51 -Correct Patient Yes -Correct Side, Site, Position Yes -Correct Procedure Yes -Procedure Performed Yes -Wound/Ulcer Outcome Not Healed -Ulcer Cleansing Not Cleansed -Bioengineered Tissue No -Cetacaine Riley No -Bleeding Controlled with NA -Other NO DEBRIDEMENT TODAY H&P FOR SURGERY CLEARANCE #1 RIGHT MEDIAL LE CLUSTER -Time 16:52 -Correct Patient Yes -Correct Side, Site, Position Yes -Correct Procedure Yes -Procedure Performed Yes -Wound/Ulcer Outcome Not Healed -Ulcer Cleansing Not Cleansed -Foul Odor after Cleansing No -Bioengineered Tissue No -Cetacaine Riley No -Bleeding Controlled with NA -Other NO DEBRIDEMENT TODAY H&P FOR SURGERY CLEARANCE Pain Scale: 0-10 Numeric Is Patient Pain Free? 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 10/10, 10/2015; MAZE procedure @ [place] 01/12/2017; Chronic diastolic (congestive) heart failure (Chronic) Hypertension (Chronic) Type 2 diabetes mellitus (Chronic) Chronic kidney disease, stage 3 (Chronic) 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 Delayed healing. venous insufficiency. Malnutrition suspected. Lower extremity pain Plan: Di was evaluated for pre-operative clearance. I personally performed a history and physical and reviewed her recent labs and EKG and do not feel that it is necessary to repeat these at this time. I feel that she is medically cleared for surgery as long as her INR done on 11/01/17 is in range between 2-[address] Dee feels comfortable with not discontinuing her coumadin prior to surgery. Continue to use tubigrips for light compression. She understands the preoperative indications, planned procedure, possible benefits, risks, complications, and anticipated healing time and management. She understands this will still be a staged comprehensive wound healing program. Anticipated anesthesia is MAC and local. She is scheduled to follow up with Dr. Dee on Monday11/01/17.
--- NOTE | 2017-10-27 19:52 | HP.PCM_ITS ---
(1) Edema, lower extremity Status: Chronic Current Visit: Yes Code(s): R60.0 - Localized edema (2) Pulmonary hypertension, secondary Status: Chronic Current Visit: Yes (3) History of cardiac radiofrequency ablation (RFA) Status: Chronic Current Visit: Yes Code(s): Z98.890 - Other specified postprocedural states Comment: 1st part of MAZE procedure Lt Atrial Ablation 01/12/17 @ [facility] (4) Heart failure with 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 Status: Chronic Current Visit: Yes Code(s): I50.30 - Unspecified diastolic ( congestive) heart failure (5) assisted current use of anticoagulant Status: Chronic Current Visit: Yes Code(s): Z79.01 - assisted (current) use of anticoagulants (6) Chronic atrial fibrillation Status: Chronic Current Visit: Yes Code(s): I48.2 - Chronic atrial fibrillation Comment: [facility] 10/10, 10/2015; MAZE procedure @ [place] 01/12/2017; (7) Chronic diastolic (congestive) heart failure Status: Chronic Current Visit: Yes Code(s): I50.32 - Chronic diastolic ( congestive) heart failure (8) Hypertension Status: Chronic Current Visit: Yes Qualifiers: Hypertension type: essential hypertension Qualified Code(s): I10 - Essential (primary) hypertension Code(s): I10 - Essential (primary) hypertension (9) Type 2 diabetes mellitus Status: Chronic Current Visit: Yes Qualifiers: Diabetes mellitus complication status: with kidney complications Diabetes mellitus complication detail: with chronic kidney disease Diabetes mellitus terminal press operator insulin use: without terminal press operator use Chronic kidney disease stage: stage 3 (moderate) Qualified Code(s): E11.22 - Type 2 diabetes mellitus with diabetic chronic kidney disease; N18.3 - Chronic kidney disease, stage 3 ( moderate) Code(s): E11.9 - Type 2 diabetes mellitus without complications (10) Chronic kidney disease, stage 3 Status: Chronic Current Visit: Yes (11) Spinal stenosis of lumbar region with radiculopathy Status: Chronic Current Visit: Yes Code(s): M48.061 - Spinal stenosis, lumbar region without neurogenic claudication; M54.16 - Radiculopathy, lumbar region (12) PAD (peripheral artery disease) Status: Chronic Current Visit: Yes Code(s): I73.9 - Peripheral vascular disease, unspecified (13) Venous stasis ulcer of left lower leg with edema of left lower leg Status: Chronic Current Visit: Yes Code(s): I83.892 - Varicose veins of left lower extremity with other complications; I83.028 - Varicose veins of left lower extremity with ulcer other part of lower leg; R60.9 - Edema, unspecified (14) Venous stasis ulcer of right lower leg with edema of right lower leg Status: Chronic Current Visit: Yes Code(s): I83.891 - Varicose veins of right lower extremity with other complications; I83.018 - Varicose veins of right lower extremity with ulcer other part of lower leg; R60.9 - Edema, unspecified History of Present Illness Date of Service: 10/27/17 Chief Complaint: Wounds/ulcers of b/l lower legs History of Wound: Di is a 72 yo female patient of Dr. Smith that presents for evaluation and treatment of lower extremity ulcers that have been present since June. Her wounds are very painful. She has been changing the dressings every other day and denies odor or redness. She was seen by Dr. Dee for consultation for possible surgical debridement and is here today for pre-operative medical clearance. She has been seen by Dr. Pelaez and had an arterial doppler which did not show any significant stenosis and showed biphasic waveforms in LE. She was unable to tolerate WILVER testing. Her venous studies showed incompetent left SFJ. She will follow up with Dr. Pelaez regarding the results of this testing for possible procedure to address SFJ incompetence. She is well known to Dr. Carbajal who helps her control the spinal stenosis pain. She follows with Dr. Childers for cardiology and was recently seen by his nurse practitioner for routine follow up. She recently saw Dr. Almonte, her private duty nurse as well and the dose of her furosemide was decreased due to change in her kidney function. It is also noted that she is on coumadin for atrial fibrillation; her INR is usually between 2 and 3, Last INR was 2.10 on 10/17/17. She is scheduled to have next INR on 11/01/17. Last EKG was on 09/26/17 and showed rate controlled A. fib with no acute S-T changes. Last CBC was 10/03/17 with hgb 9.1 and hct 29.2, which is her baseline. Last CMP done on 10/10/17 with creatinine 1.82. Last A1C 05/2017 which was 6.5%. Past Medical History Past Medical History: Chronic Problems (Last Updated 10/11/17 @ 09:06 by Gosia Martinez) Edema, lower extremity (Chronic) Pulmonary hypertension, secondary (Chronic) History of cardiac radiofrequency ablation (RFA) (Chronic) 1st part of MAZE procedure Lt Atrial Ablation 01/12/17 @ [facility] Heart failure with 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 (Chronic) assisted current use of anticoagulant (Chronic) Chronic atrial fibrillation (Chronic) [facility] 10/10, 10/2015; MAZE procedure @ [place] 01/12/2017; Status post placement of implantable loop recorder (Chronic) History of maze procedure (Chronic) Other secondary pulmonary hypertension (Chronic) Chronic diastolic (congestive) heart failure (Chronic) Symptomatic anemia (Chronic) Hypertension (Chronic) Type 2 diabetes mellitus (Chronic) Lung nodule (Chronic) Chronic kidney disease, stage 3 (Chronic) 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 calciphylaxis vs. erythema nodosum vs. dermatomyositis vs. panniculitis Mass of soft tissue of right lower extremity (Chronic) right inner upper thigh - ? calciphylaxis vs. erythema nodosum vs. dermatomyositis vs. panniculitis Surgical History: cataract, cholecystectomy, hysterectomy, - Allergies/Adverse Reactions: Allergies amlodipine besylate [From Norvasc] Allergy (Verified 10/07/17 09:31) Unknown Shortness of breath ceftriaxone Allergy (Verified 10/07/17 09:31) Rash doxazosin mesylate [From Cardura] Allergy (Verified 10/07/17 09:31) Unknown Pt doesn't remember doxycycline Allergy (Verified 10/07/17 09:31) Unknown Pt doesn't remember enalapril maleate [From Vasotec] Allergy (Verified 10/07/17 09:31) Rash enalaprilat dihydrate [From Vasotec] Allergy (Verified 10/07/17 09:31) Rash hydroxyzine HCl [From Vistaril] Allergy (Verified 10/07/17 09:31) Rash hydroxyzine pamoate [From Vistaril] Allergy (Verified 10/07/17 09:31) Rash meperidine HCl [From Demerol] Allergy (Verified 10/07/17 09:31) Rash Sulfa (Sulfonamide Antibiotics) Allergy (Verified 10/07/17 09:31) Hives sulfamethoxazole [From Bactrim] Allergy (Verified 10/07/17 09:31) Hives trimethoprim [From Bactrim] Allergy (Verified 10/07/17 09:31) Hives Home Medications: Ambulatory Orders Medication Instructions Recorded Metoprolol Tartrate [Lopressor 12.5 mg PO BID #90 tab 11/06/15 (beta alok)] Aspirin [Adult Low Dose Aspirin EC] 81 mg PO DAILY 03/03/17 warfarin 4 mg tablet 4 mg PO MOWEFR 09/28/17 Gabapentin [Neurontin] 100 mg PO 4X/DAY 09/29/17 Warfarin [Coumadin] 2 mg PO SUTUTHSA 09/29/17 Fluoxetine [Prozac] 20 mg PO DAILY 09/30/17 furosemide 40 mg tablet 40 mg PO QDAY tab 10/11/17 oxycodone 10 mg tablet 10 mg PO ONCE 10/11/17 Metformin HCl 500 mg PO DAILY 10/27/17 - Family History Maternal Family History: Family History (Last Reviewed 10/27/17 @ 19:40 by Meche Delvalle DO) Mother Diabetes Brother Diabetes Son Hypertension Daughter Arthritis Diabetes Hypertension Paternal Family History: Family History (Last Reviewed 10/27/17 @ 19:40 by Meche Delvalle DO) Mother Diabetes Brother Diabetes Son Hypertension Daughter Arthritis Diabetes Hypertension Lives: Spouse/ Significant Other Smoking Status: Never smoker Tobacco Use: Non-smoker Alcohol: None Drugs: None Review of Systems Constitutional: Denies: Chills, Fever, Weight Change Eyes: Denies: Pain, Vision Change HEENT: Reports: Difficulty Hearing. Denies: Nasal Congestion, Sinus Drainage, Sore Throat Cardiovascular: Denies: Chest Pain, Palpitations Respiratory: Denies: Cough, Shortness of Breath Gastrointestinal: Denies: Diarrhea, Nausea, Vomiting Genitourinary: Denies: Dysuria, Hematuria Musculoskeletal: Reports: Joint Pain, Leg Pain Skin: Reports: Wounds Neurological: Reports: Numbness, Tingling Psychiatric: Reports: Anxiety, Depression Endocrine: Reports: Heat/ Cold Intolerance Hematologic/ Lymphatic: Reports: Easy Bruising, Easy Bleeding - Physical Exam Vital Signs Temp Pulse Resp BP 97.5 F L 95 16 110/68 10/27/17 15:59 10/27/17 15:59 10/27/17 15:59 10/27/17 15:59 General: Alert, Oriented x3, Cooperative, No apparent distress HEENT: Atraumatic, EOMI, Normocephalic Oral: Moist Mucosa Neck: Supple, No JVD, Negative Carotid Bruits Lungs: Clear to auscultation Cardiovascular: Regular rate, Regular Rhythm Abdomen: Bowel Sounds Present, Soft, Non Tender, Non-Distended, Obese Extremities: Edema, Tenderness Skin: Ulcer/ Wound Wound Measurements and Assessment WC - Nurse 2 - General Ulcer CM Notes Start: 10/27/17 15:59 Freq: Status: Active Protocol: Activity Type Activity Date Activity User E-Sign Co-Sign Detail Recorded Client Recorded Date Recorded By Document 10/27/17 16:51 [id number] 10/27/17 16:55 10/27/17 16:51 Wound Center Nurse 2 [Procedure/Treatment] #2 Left calf -Time 16:51 -Correct Patient Yes -Correct Side, Site, Position Yes -Correct Procedure Yes -Procedure Performed Yes -Wound/Ulcer Outcome Not Healed -Ulcer Cleansing Not Cleansed -Bioengineered Tissue No -Cetacaine [place] No -Bleeding Controlled with NA -Other NO DEBRIDEMENT TODAY H&P FOR SURGERY CLEARANCE #1 RIGHT MEDIAL LE CLUSTER -Time 16:52 -Correct Patient Yes -Correct Side, Site, Position Yes -Correct Procedure Yes -Procedure Performed Yes -Wound/Ulcer Outcome Not Healed -Ulcer Cleansing Not Cleansed -Foul Odor after Cleansing No -Bioengineered Tissue No -Cetacaine [place] No -Bleeding Controlled with NA -Other NO DEBRIDEMENT TODAY H&P FOR SURGERY CLEARANCE [See Physician Procedure note for Specifics] Pain Scale: 0-10 Numeric [Pain] -Is Patient Pain Free? Yes Musculoskeletal: Tenderness Neurological: Unsteady Gait Psych/Mental Status: Normal Affect, Appropriate, Alert and oriented to time, place, person, mood and affect Debridement Note Post-Debridement Measurements/Treatment WC - Nurse 2 - General Ulcer CM Notes Start: 10/27/17 15:59 Freq: Status: Active Protocol: Activity Type Activity Date Activity User E-Sign Co-Sign Detail Recorded Client Recorded Date Recorded By Document 10/27/17 16:51 [id number] 10/27/17 16:55 TM 10/27/17 16:51 Wound Center Nurse 2 #2 Left calf -Time 16:51 -Correct Patient Yes -Correct Side, Site, Position Yes -Correct Procedure Yes -Procedure Performed Yes -Wound/Ulcer Outcome Not Healed -Ulcer Cleansing Not Cleansed -Bioengineered Tissue No -Cetacaine [place] No -Bleeding Controlled with NA -Other NO DEBRIDEMENT TODAY H&P FOR SURGERY CLEARANCE #1 RIGHT MEDIAL LE CLUSTER -Time 16:52 -Correct Patient Yes -Correct Side, Site, Position Yes -Correct Procedure Yes -Procedure Performed Yes -Wound/Ulcer Outcome Not Healed -Ulcer Cleansing Not Cleansed -Foul Odor after Cleansing No -Bioengineered Tissue No -Cetacaine [place] No -Bleeding Controlled with NA -Other NO DEBRIDEMENT TODAY H&P FOR SURGERY CLEARANCE Pain Scale: 0-10 Numeric Is Patient Pain Free? Yes No debridement was completed today Assessment/Plan Active Problems (Last Updated 10/11/17 @ 09:06 by Gosia Martinez) Edema, lower extremity (Chronic) Pulmonary hypertension, secondary (Chronic) History of cardiac radiofrequency ablation (RFA) (Chronic) 1st part of MAZE procedure Lt Atrial Ablation 01/12/17 @ [facility] Heart failure with 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 (Chronic) assisted current use of anticoagulant (Chronic) Chronic atrial fibrillation (Chronic) [facility] 10/10, 10/2015; MAZE procedure @ [place] 01/12/2017; Chronic diastolic (congestive) heart failure (Chronic) Hypertension (Chronic) Type 2 diabetes mellitus (Chronic) Chronic kidney disease, stage 3 (Chronic) 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 Delayed healing. venous insufficiency. Malnutrition suspected. Lower extremity pain Plan: Di was evaluated for pre-operative clearance. I personally performed a history and physical and reviewed her recent labs and EKG and do not feel that it is necessary to repeat these at this time. I feel that she is medically cleared for surgery as long as her INR done on 11/01/17 is in range between 2-[address] Dee feels comfortable with not discontinuing her coumadin prior to surgery. Continue to use tubigrips for light compression. She understands the preoperative indications, planned procedure, possible benefits, risks, complications, and anticipated healing time and management. She understands this will still be a staged comprehensive wound healing program. Anticipated anesthesia is MAC and local. She is scheduled to follow up with Dr. Dee on Monday11/01/17.
[2017-11-01 13:53] VITALS: BP 120/69; PULSE 100; RESP 16; TEMP 36.2; BMI 35.4
--- NOTE | 2017-11-01 15:47 | PCM.WC.PN ---
(1) Right leg pain Status: Chronic Current Visit: Yes Code(s): M79.604 - Pain in right leg (2) Left leg pain Status: Chronic Current Visit: Yes Code(s): M79.605 - Pain in left leg (3) Edema, lower extremity Status: Chronic Current Visit: Yes Code(s): R60.0 - Localized edema (4) Localized edema Status: Chronic Current Visit: Yes Code(s): R60.0 - Localized edema (5) Type 2 diabetes mellitus Status: Chronic Current Visit: Yes Qualifiers: Diabetes mellitus complication status: with kidney complications Diabetes mellitus complication detail: with chronic kidney disease Diabetes mellitus termite treater insulin use: without termite treater use Chronic kidney disease stage: stage 3 (moderate) Qualified Code(s): E11.22 - Type 2 diabetes mellitus with diabetic chronic kidney disease; N18.3 - Chronic kidney disease, stage 3 (moderate) Code(s): E11.9 - Type 2 diabetes mellitus without complications (6) PAD (peripheral artery disease) Status: Chronic Current Visit: Yes Code(s): I73.9 - Peripheral vascular disease, unspecified (7) Venous stasis ulcer of left lower leg with edema of left lower leg Status: Chronic Current Visit: Yes Code(s): I83.892 - Varicose veins of left lower extremity with other complications; I83.028 - Varicose veins of left lower extremity with ulcer other part of lower leg; R60.9 - Edema, unspecified (8) Venous stasis ulcer of right lower leg with edema of right lower leg Status: Chronic Current Visit: Yes Code(s): I83.891 - Varicose veins of right lower extremity with other complications; I83.018 - Varicose veins of right lower extremity with ulcer other part of lower leg; R60.9 - Edema, unspecified (9) Calcinosis Status: Chronic Current Visit: Yes Code(s): E83.59 - Other disorders of calcium metabolism Type of Wound Date of Service: 11/01/17 Chief Complaint: Wounds/ulcers of b/l lower legs History of Wound: Di is a 72 yo female patient of Dr. Smith that presents for evaluation and treatment of lower extremity ulcers that have been present since June. Her wounds are very painful. She has been changing the dressings every other day and denies odor or redness. She was seen by Dr. Martinez with pain management. She has been seen by Dr. Pelaez and had an arterial doppler which did not show any significant stenosis and showed biphasic waveforms in LE. Her venous studies showed incompetent left SFJ. She will follow up with Dr. Pelaez regarding the results of this testing for possible procedure to address SFJ incompetence. She follows with Dr. Childers for cardiology and was recently seen by his nurse practitioner for routine follow up. She recently saw Dr. Almonte, her cloud infrastructure architect as well and the dose of her furosemide was decreased due to change in her kidney function. It is also noted that she is on coumadin for atrial fibrillation; her INR is usually between 2 and 3, Last INR was 3.0 today. She did see Dr. Delvalle last week for surgical and anesthesia clearance in which she was cleared for MAC and local. She returns to clinic today to sign surgical consents. The patient and her daughter have many questions and concerns. Progress of Wound: Stable - Physical Exam Vital Signs Temp Pulse Resp BP 97.1 F L 100 16 120/69 11/01/17 13:53 11/01/17 13:53 11/01/17 13:53 11/01/17 13:53 General: Alert, Oriented x3, Cooperative Extremities: No cyanosis, Capillary Refill Less than 3 Seconds, Diminished Peripheral Pulses, Edema - Lower extremity with varicosities, Tenderness - Diffuse tenderness bilateral lower extremities especially with wound palpation Skin: Ulcer/ Wound - no purulence, no erythema, no streaking, no odor, no signs of infection bilateral lower extremities. The skin is atrophic. She has multiple clusters of dry stable eschars to bilateral lower extremities that are all fully well adhered. Wound Measurements and Assessment - Nurse 1 - General Ulcer Measurement Start: 10/27/17 15:59 Freq: Status: Active Protocol: Activity Type Activity Date Activity User E-Sign Co-Sign Detail Recorded Client Recorded Date Recorded By Document 11/01/17 13:53 [facility] [id number] 11/01/17 14:09 [facility] 11/01/17 13:53 Wound Center Nurse 1 [Ulcer Assessment Protocol: MURTAZA.WD.LOC] #2 Left calf -Combined with other wound No -Current Size (cm) - Length 10.7 -Current Size (cm) - Width 10.7 -Current Size (cm) - Depth 0.1 -Total Square Cm 114.49 -Epithelialization None Present -Tunneling No -Undermining/Tunneling No -Exudate Amt Medium (34-66%) -Exudate Type Serosanguineous -Wound Margin Distinct, Outline Attached -Granulation Amt None Present (0 %) -Slough/Fibrin Yes -Necrosis Amt Large (67-100%) -Necrotic Tissue Type Eschar -Structure Exposed N/A -Texture (Gabriella-wound Skin Appearance) Scarring -Moisture (Gabriella-wound Skin Appearance Dry/Scaly ) -Color (Gabriella-wound Skin Appearance) Assessed Erythema -Temperature (Gabriella-wound Skin No Abnormality Appearance) (Pt Warm) -Tenderness on Palpation (Gabriella-wound Yes Skin Appearance) -Ulcer Cleansing Not Cleansed -Foul Odor after Cleansing No #1 RIGHT MEDIAL LE CLUSTER -Combined with other wound No -Current Size (cm) - Length 14 -Current Size (cm) - Width 14 -Current Size (cm) - Depth 0.1 -Total Square Cm 196 -Photo Taken No -Epithelialization None Present -Tunneling No -Undermining/Tunneling No -Exudate Amt Medium (34-66%) -Exudate Type Serosanguineous -Wound Margin Distinct, Outline Attached -Granulation Amt None Present (0 %) -Slough/Fibrin Yes -Necrosis Amt Large (67-100%) -Necrotic Tissue Type Eschar -Structure Exposed N/A -Texture (Gabriella-wound Skin Appearance) Scarring -Moisture (Gabriella-wound Skin Appearance Assessed ) Dry/Scaly -Color (Gabriella-wound Skin Appearance) Erythema -Temperature (Gabriella-wound Skin No Abnormality Appearance) (Pt Warm) -Tenderness on Palpation (Gabriella-wound No Skin Appearance) -Ulcer Cleansing Rinsed/ Irrigated with Saline -Foul Odor after Cleansing No [Edema Assessment] -Lower Limb Edema Present Yes -Right Calf (cm) 35 -Right Ankle (cm) 23.6 -Left Calf (cm) 34.9 -Left Ankle (cm) 23 WC - Nurse 2 - General Ulcer CM Notes Start: 10/27/17 15:59 Freq: Status: Active Protocol: Activity Type Activity Date Activity User E-Sign Co-Sign Detail Recorded Client Recorded Date Recorded By Document 11/01/17 14:35 TM [id number] 11/01/17 14:42 TM 11/01/17 14:35 Wound Center Nurse 2 [Procedure/Treatment] #2 Left calf -Time 14:36 -Correct Patient Yes -Correct Side, Site, Position Yes -Correct Procedure Yes -Procedure Performed Yes -Post Debridement Size (cm) - Length 10.7 -Post Debridement Size (cm) - Width 10.7 -Post Debridement Size (cm) - Depth 0.1 -Total Square Cm 114.49 -Wound/Ulcer Outcome Not Healed -Ulcer Cleansing Rinsed/ Irrigated with Saline -Foul Odor after Cleansing No -Bioengineered Tissue No -Bleeding Controlled with NA -Other no debridement today consents for surgical debridement 11/03 -Treatment Response Procedure Tolerated Well #1 RIGHT MEDIAL LE CLUSTER -Time 14:37 -Correct Patient Yes -Correct Side, Site, Position Yes -Correct Procedure Yes -Procedure Performed Yes -Post Debridement Size (cm) - Length 14.0 -Post Debridement Size (cm) - Width 14.0 -Post Debridement Size (cm) - Depth 0.1 -Total Square Cm 196.00 -Wound/Ulcer Outcome Not Healed -Ulcer Cleansing Rinsed/ Irrigated with Saline -Foul Odor after Cleansing No -Bioengineered Tissue No -Bleeding Controlled with NA -Other no debridement today consents for surgical debridement 11/03 -Treatment Response Procedure Tolerated Well [See Physician Procedure note for Specifics] Pain Scale: 0-10 Numeric [Pain] -Is Patient Pain Free? Yes Musculoskeletal: No Tenderness to Palpation of Joints or Extremities, Muscle Wasting, - - No crepitus on palpation bilateral lower extremities. The compartments of bilateral lower extremities remain soft. Neurological: Sensory exam intact to light touch and pain - Bilateral lower extremities are hypersensitive to touch Psych/Mental Status: Normal Affect, Appropriate Debridement Note Post-Debridement Measurements/Treatment WC - Nurse 2 - General Ulcer CM Notes Start: 10/27/17 15:59 Freq: Status: Active Protocol: Activity Type Activity Date Activity User E-Sign Co-Sign Detail Recorded Client Recorded Date Recorded By Document 10/27/17 16:51 TM [id number] 10/27/17 16:55 TM Document 11/01/17 14:35 TM [id number] 11/01/17 14:42 TM 10/27/17 11/01/17 16:51 14:35 Wound Center Nurse 2 #2 Left calf -Time 16:51 14:36 -Correct Patient Yes Yes -Correct Side, Site, Position Yes Yes -Correct Procedure Yes Yes -Procedure Performed Yes Yes -Post Debridement Size (cm) - Length 10.7 -Post Debridement Size (cm) - Width 10.7 -Post Debridement Size (cm) - Depth 0.1 -Total Square Cm 114.49 -Wound/Ulcer Outcome Not Healed Not Healed -Ulcer Cleansing Not Cleansed Rinsed/ Irrigated with Saline -Foul Odor after Cleansing No -Bioengineered Tissue No No -Cetacaine [place] [facility] No -Bleeding Controlled with NA NA -Other NO DEBRIDEMENT no debridement TODAY H&P FOR today consents SURGERY for surgical CLEARANCE debridement 11/03 -Treatment Response Procedure Tolerated Well #1 RIGHT MEDIAL LE CLUSTER -Time 16:52 14:37 -Correct Patient Yes Yes -Correct Side, Site, Position Yes Yes -Correct Procedure Yes Yes -Procedure Performed Yes Yes -Post Debridement Size (cm) - Length 14.0 -Post Debridement Size (cm) - Width 14.0 -Post Debridement Size (cm) - Depth 0.1 -Total Square Cm 196.00 -Wound/Ulcer Outcome Not Healed Not Healed -Ulcer Cleansing Not Cleansed Rinsed/ Irrigated with Saline -Foul Odor after Cleansing No No -Bioengineered Tissue No No -Cetacaine [place] [facility] No -Bleeding Controlled with NA NA -Other NO DEBRIDEMENT no debridement TODAY H&P FOR today consents SURGERY for surgical CLEARANCE debridement 11/03 -Treatment Response Procedure Tolerated Well Pain Scale: 0-10 Numeric Is Patient Pain Free? Yes Yes No debridement was completed today - Refused and will not be tolerated Assessment/Plan Active Problems (Last Updated 10/11/17 @ 09:06 by Gosia Martinez) Right leg pain (Chronic) Left leg pain (Chronic) Calcinosis (Chronic) Edema, lower extremity (Chronic) Pulmonary hypertension, secondary (Chronic) History of cardiac radiofrequency ablation (RFA) (Chronic) 1st part of MAZE procedure Lt Atrial Ablation 01/12/17 @ [facility] Localized edema (Chronic) Heart failure with 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 (Chronic) [facility] current use of anticoagulant (Chronic) Chronic atrial fibrillation (Chronic) [facility] 10/10, 10/2015; MAZE procedure @ [facility] 01/12/2017; Chronic diastolic (congestive) heart failure (Chronic) Hypertension (Chronic) Type 2 diabetes mellitus (Chronic) Chronic kidney disease, stage 3 (Chronic) 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 Delayed healing. venous insufficiency. Malnutrition suspected. Lower extremity pain. Differential diagnoses includes calcinosis. Multiple comorbidities noted Plan: Di's wounds were evaluated she was not able to tolerate any type of debridement today. I performed a chart review on her case and discussed her progress this afternoon. It noted she did undergo a history and physical exam with Dr. Delvalle in which clearance was obtained under MAC and local anesthesia. She is demonstrating significant delays in healing and is unable to tolerate debridements due to pain. Patient as well as her daughter having second thoughts today and would like to proceed with conservative care. Although I primarily also encourage operating room debridement to remove the majority of the necrosis tissue followed with progressive clinical wound care plan, and enzymatic debrider can also be considered at this time. They understand this is a more conservative approach and typically does require serial debridements in clinic even so. I answered their questions to their satisfaction and will plan to move forward with Santyl instead of surgical debridement at this time. Continue to use tubigrips for light compression. Labs reviewed which were inconclusive ESR and CRP were elevated, HASEEB negative, Calcium WNL, PTH was low. She has wounds on other areas of her body which were not evaluated today. She will follow up with Dr. Pelaez afternoon for evaluation of her arterial Doppler exam which appeared to have distal perfusion. Continue to follow up with Dr. Carbajal as scheduled for pain management. Encouraged her to elevated legs as much as possible, avoid idle sitting or standing, increase activity, as well as weight management. We reviewed the basics of wound healing today. It was reiterated that her medical comorbidities do complicate her course and her treatment plan will be a staged progressive plan that is subject to change as the wound progresses and changes. To return to clinic in 1 week. She is to call if increased drainage or changes in wounds or if the patient or her daughter has additional concerns or questions.
--- NOTE | 2017-11-01 15:52 | PN.PCM_ITS ---
(1) Right leg pain Status: Chronic Current Visit: Yes Code(s): M79.604 - Pain in right leg (2) Left leg pain Status: Chronic Current Visit: Yes Code(s): M79.605 - Pain in left leg (3) Edema, lower extremity Status: Chronic Current Visit: Yes Code(s): R60.0 - Localized edema (4) Localized edema Status: Chronic Current Visit: Yes Code(s): R60.0 - Localized edema (5) Type 2 diabetes mellitus Status: Chronic Current Visit: Yes Qualifiers: Diabetes mellitus complication status: with kidney complications Diabetes mellitus complication detail: with chronic kidney disease Diabetes mellitus drum attendant insulin use: without drum attendant use Chronic kidney disease stage: stage 3 (moderate) Qualified Code(s): E11.22 - Type 2 diabetes mellitus with diabetic chronic kidney disease; N18.3 - Chronic kidney disease, stage 3 ( moderate) Code(s): E11.9 - Type 2 diabetes mellitus without complications (6) PAD (peripheral artery disease) Status: Chronic Current Visit: Yes Code(s): I73.9 - Peripheral vascular disease, unspecified (7) Venous stasis ulcer of left lower leg with edema of left lower leg Status: Chronic Current Visit: Yes Code(s): I83.892 - Varicose veins of left lower extremity with other complications; I83.028 - Varicose veins of left lower extremity with ulcer other part of lower leg; R60.9 - Edema, unspecified (8) Venous stasis ulcer of right lower leg with edema of right lower leg Status: Chronic Current Visit: Yes Code(s): I83.891 - Varicose veins of right lower extremity with other complications; I83.018 - Varicose veins of right lower extremity with ulcer other part of lower leg; R60.9 - Edema, unspecified (9) Calcinosis Status: Chronic Current Visit: Yes Code(s): E83.59 - Other disorders of calcium metabolism Type of Wound Date of Service: 11/01/17 Chief Complaint: Wounds/ulcers of b/l lower legs History of Wound: Di is a 72 yo female patient of Dr. Smith that presents for evaluation and treatment of lower extremity ulcers that have been present since June. Her wounds are very painful. She has been changing the dressings every other day and denies odor or redness. She was seen by Dr. Martinez with pain management. She has been seen by Dr. Pelaez and had an arterial doppler which did not show any significant stenosis and showed biphasic waveforms in LE. Her venous studies showed incompetent left SFJ. She will follow up with Dr. Pelaez regarding the results of this testing for possible procedure to address SFJ incompetence. She follows with Dr. Childers for cardiology and was recently seen by his nurse practitioner for routine follow up. She recently saw Dr. Almonte, her nurse assistant as well and the dose of her furosemide was decreased due to change in her kidney function. It is also noted that she is on coumadin for atrial fibrillation; her INR is usually between 2 and 3, Last INR was 3.0 today. She did see Dr. Delvalle last week for surgical and anesthesia clearance in which she was cleared for MAC and local. She returns to clinic today to sign surgical consents. The patient and her daughter have many questions and concerns. Progress of Wound: Stable - Physical Exam Vital Signs Temp Pulse Resp BP 97.1 F L 100 16 120/69 11/01/17 13:53 11/01/17 13:53 11/01/17 13:53 11/01/17 13:53 General: Alert, Oriented x3, Cooperative Extremities: No cyanosis, Capillary Refill Less than 3 Seconds, Diminished Peripheral Pulses, Edema - Lower extremity with varicosities, Tenderness - Diffuse tenderness bilateral lower extremities especially with wound palpation Skin: Ulcer/ Wound - no purulence, no erythema, no streaking, no odor, no signs of infection bilateral lower extremities. The skin is atrophic. She has multiple clusters of dry stable eschars to bilateral lower extremities that are all fully well adhered. Wound Measurements and Assessment - Nurse 1 - General Ulcer Measurement Start: 10/27/17 15:59 Freq: Status: Active Protocol: Activity Type Activity Date Activity User E-Sign Co-Sign Detail Recorded Client Recorded Date Recorded By Document 11/01/17 13:53 [facility] [id number] 11/01/17 14:09 [facility] 11/01/17 13:53 Wound Center Nurse 1 [Ulcer Assessment Protocol: MURTAZA.WD.LOC] #2 Left calf -Combined with other wound No -Current Size (cm) - Length 10.7 -Current Size (cm) - Width 10.7 -Current Size (cm) - Depth 0.1 -Total Square Cm 114.49 -Epithelialization None Present -Tunneling No -Undermining/Tunneling No -Exudate Amt Medium (34-66%) -Exudate Type Serosanguineous -Wound Margin Distinct, Outline Attached -Granulation Amt None Present (0 %) -Slough/Fibrin Yes -Necrosis Amt Large (67-100%) -Necrotic Tissue Type Eschar -Structure Exposed N/A -Texture (Gabriella-wound Skin Appearance) Scarring -Moisture (Gabriella-wound Skin Appearance Dry/Scaly ) -Color (Gabriella-wound Skin Appearance) Assessed Erythema -Temperature (Gabriella-wound Skin No Abnormality Appearance) (Pt Warm) -Tenderness on Palpation (Gabriella-wound Yes Skin Appearance) -Ulcer Cleansing Not Cleansed -Foul Odor after Cleansing No #1 RIGHT MEDIAL LE CLUSTER -Combined with other wound No -Current Size (cm) - Length 14 -Current Size (cm) - Width 14 -Current Size (cm) - Depth 0.1 -Total Square Cm 196 -Photo Taken No -Epithelialization None Present -Tunneling No -Undermining/Tunneling No -Exudate Amt Medium (34-66%) -Exudate Type Serosanguineous -Wound Margin Distinct, Outline Attached -Granulation Amt None Present (0 %) -Slough/Fibrin Yes -Necrosis Amt Large (67-100%) -Necrotic Tissue Type Eschar -Structure Exposed N/A -Texture (Gabriella-wound Skin Appearance) Scarring -Moisture (Gabriella-wound Skin Appearance Assessed ) Dry/Scaly -Color (Gabriella-wound Skin Appearance) Erythema -Temperature (Gabriella-wound Skin No Abnormality Appearance) (Pt Warm) -Tenderness on Palpation (Gabriella-wound No Skin Appearance) -Ulcer Cleansing Rinsed/ Irrigated with Saline -Foul Odor after Cleansing No [Edema Assessment] -Lower Limb Edema Present Yes -Right Calf (cm) 35 -Right Ankle (cm) 23.6 -Left Calf (cm) 34.9 -Left Ankle (cm) 23 WC - Nurse 2 - General Ulcer CM Notes Start: 10/27/17 15:59 Freq: Status: Active Protocol: Activity Type Activity Date Activity User E-Sign Co-Sign Detail Recorded Client Recorded Date Recorded By Document 11/01/17 14:35 TM [id number] 11/01/17 14:42 TM 11/01/17 14:35 Wound Center Nurse 2 [Procedure/Treatment] #2 Left calf -Time 14:36 -Correct Patient Yes -Correct Side, Site, Position Yes -Correct Procedure Yes -Procedure Performed Yes -Post Debridement Size (cm) - Length 10.7 -Post Debridement Size (cm) - Width 10.7 -Post Debridement Size (cm) - Depth 0.1 -Total Square Cm 114.49 -Wound/Ulcer Outcome Not Healed -Ulcer Cleansing Rinsed/ Irrigated with Saline -Foul Odor after Cleansing No -Bioengineered Tissue No -Bleeding Controlled with NA -Other no debridement today consents for surgical debridement 11/03 -Treatment Response Procedure Tolerated Well #1 RIGHT MEDIAL LE CLUSTER -Time 14:37 -Correct Patient Yes -Correct Side, Site, Position Yes -Correct Procedure Yes -Procedure Performed Yes -Post Debridement Size (cm) - Length 14.0 -Post Debridement Size (cm) - Width 14.0 -Post Debridement Size (cm) - Depth 0.1 -Total Square Cm 196.00 -Wound/Ulcer Outcome Not Healed -Ulcer Cleansing Rinsed/ Irrigated with Saline -Foul Odor after Cleansing No -Bioengineered Tissue No -Bleeding Controlled with NA -Other no debridement today consents for surgical debridement 11/03 -Treatment Response Procedure Tolerated Well [See Physician Procedure note for Specifics] Pain Scale: 0-10 Numeric [Pain] -Is Patient Pain Free? Yes Musculoskeletal: No Tenderness to Palpation of Joints or Extremities, Muscle Wasting, - - No crepitus on palpation bilateral lower extremities. The compartments of bilateral lower extremities remain soft. Neurological: Sensory exam intact to light touch and pain - Bilateral lower extremities are hypersensitive to touch Psych/Mental Status: Normal Affect, Appropriate Debridement Note Post-Debridement Measurements/Treatment WC - Nurse 2 - General Ulcer CM Notes Start: 10/27/17 15:59 Freq: Status: Active Protocol: Activity Type Activity Date Activity User E-Sign Co-Sign Detail Recorded Client Recorded Date Recorded By Document 10/27/17 16:51 TM [id number] 10/27/17 16:55 TM Document 11/01/17 14:35 TM [id number] 11/01/17 14:42 TM 10/27/17 11/01/17 16:51 14:35 Wound Center Nurse 2 #2 Left calf -Time 16:51 14:36 -Correct Patient Yes Yes -Correct Side, Site, Position Yes Yes -Correct Procedure Yes Yes -Procedure Performed Yes Yes -Post Debridement Size (cm) - Length 10.7 -Post Debridement Size (cm) - Width 10.7 -Post Debridement Size (cm) - Depth 0.1 -Total Square Cm 114.49 -Wound/Ulcer Outcome Not Healed Not Healed -Ulcer Cleansing Not Cleansed Rinsed/ Irrigated with Saline -Foul Odor after Cleansing No -Bioengineered Tissue No No -Cetacaine [place] No -Bleeding Controlled with NA NA -Other NO DEBRIDEMENT no debridement TODAY H&P FOR today consents SURGERY for surgical CLEARANCE debridement 11/03 -Treatment Response Procedure Tolerated Well #1 RIGHT MEDIAL LE CLUSTER -Time 16:52 14:37 -Correct Patient Yes Yes -Correct Side, Site, Position Yes Yes -Correct Procedure Yes Yes -Procedure Performed Yes Yes -Post Debridement Size (cm) - Length 14.0 -Post Debridement Size (cm) - Width 14.0 -Post Debridement Size (cm) - Depth 0.1 -Total Square Cm 196.00 -Wound/Ulcer Outcome Not Healed Not Healed -Ulcer Cleansing Not Cleansed Rinsed/ Irrigated with Saline -Foul Odor after Cleansing No No -Bioengineered Tissue No No -Cetacaine [place] No -Bleeding Controlled with NA NA -Other NO DEBRIDEMENT no debridement TODAY H&P FOR today consents SURGERY for surgical CLEARANCE debridement 11/03 -Treatment Response Procedure Tolerated Well Pain Scale: 0-10 Numeric Is Patient Pain Free? Yes Yes No debridement was completed today - Refused and will not be tolerated Assessment/Plan Active Problems (Last Updated 10/11/17 @ 09:06 by Gosia Martinez) Right leg pain (Chronic) Left leg pain (Chronic) Calcinosis (Chronic) Edema, lower extremity (Chronic) Pulmonary hypertension, secondary (Chronic) History of cardiac radiofrequency ablation (RFA) (Chronic) 1st part of MAZE procedure Lt Atrial Ablation 01/12/17 @ [facility] Localized edema (Chronic) Heart failure with 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 (Chronic) [place] [facility] current use of anticoagulant (Chronic) Chronic atrial fibrillation (Chronic) [facility] 10/10, 10/2015; MAZE procedure @ [place] 01/12/2017; Chronic diastolic (congestive) heart failure (Chronic) Hypertension (Chronic) Type 2 diabetes mellitus (Chronic) Chronic kidney disease, stage 3 (Chronic) 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 Delayed healing. venous insufficiency. Malnutrition suspected. Lower extremity pain. Differential diagnoses includes calcinosis. Multiple comorbidities noted Plan: Di's wounds were evaluated she was not able to tolerate any type of debridement today. I performed a chart review on her case and discussed her progress this afternoon. It noted she did undergo a history and physical exam with Dr. Delvalle in which clearance was obtained under MAC and local anesthesia. She is demonstrating significant delays in healing and is unable to tolerate debridements due to pain. Patient as well as her daughter having second thoughts today and would like to proceed with conservative care. Although I primarily also encourage operating room debridement to remove the majority of the necrosis tissue followed with progressive clinical wound care plan, and enzymatic debrider can also be considered at this time. They understand this is a more conservative approach and typically does require serial debridements in clinic even so. I answered their questions to their satisfaction and will plan to move forward with Santyl instead of surgical debridement at this time. Continue to use tubigrips for light compression. Labs reviewed which were inconclusive ESR and CRP were elevated, HASEEB negative, Calcium WNL, PTH was low. She has wounds on other areas of her body which were not evaluated today. She will follow up with Dr. Pelaez afternoon for evaluation of her arterial Doppler exam which appeared to have distal perfusion. Continue to follow up with Dr. Carbajal as scheduled for pain management. Encouraged her to elevated legs as much as possible, avoid idle sitting or standing, increase activity, as well as weight management. We reviewed the basics of wound healing today. It was reiterated that her medical comorbidities do complicate her course and her treatment plan will be a staged progressive plan that is subject to change as the wound progresses and changes. To return to clinic in 1 week. She is to call if increased drainage or changes in wounds or if the patient or her daughter has additional concerns or questions.
[2017-11-08 12:00] VITALS: BP 118/64; PULSE 123; RESP 18; TEMP 36.9; BMI 35.4
--- NOTE | 2017-11-08 12:23 | PCM.WC.PN ---
(1) Right leg pain Status: Chronic Current Visit: Yes Code(s): M79.604 - Pain in right leg (2) Left leg pain Status: Chronic Current Visit: Yes Code(s): M79.605 - Pain in left leg (3) Edema, lower extremity Status: Chronic Current Visit: Yes Code(s): R60.0 - Localized edema (4) Localized edema Status: Chronic Current Visit: Yes Code(s): R60.0 - Localized edema (5) Type 2 diabetes mellitus Status: Chronic Current Visit: Yes Qualifiers: Diabetes mellitus complication status: with kidney complications Diabetes mellitus complication detail: with chronic kidney disease Diabetes mellitus termite control servicer insulin use: without termite control servicer use Chronic kidney disease stage: stage 3 (moderate) Qualified Code(s): E11.22 - Type 2 diabetes mellitus with diabetic chronic kidney disease; N18.3 - Chronic kidney disease, stage 3 (moderate) Code(s): E11.9 - Type 2 diabetes mellitus without complications (6) PAD (peripheral artery disease) Status: Chronic Current Visit: Yes Code(s): I73.9 - Peripheral vascular disease, unspecified (7) Venous stasis ulcer of left lower leg with edema of left lower leg Status: Chronic Current Visit: Yes Code(s): I83.892 - Varicose veins of left lower extremity with other complications; I83.028 - Varicose veins of left lower extremity with ulcer other part of lower leg; R60.9 - Edema, unspecified (8) Venous stasis ulcer of right lower leg with edema of right lower leg Status: Chronic Current Visit: Yes Code(s): I83.891 - Varicose veins of right lower extremity with other complications; I83.018 - Varicose veins of right lower extremity with ulcer other part of lower leg; R60.9 - Edema, unspecified (9) Calcinosis Status: Chronic Current Visit: Yes Code(s): E83.59 - Other disorders of calcium metabolism Type of Wound Date of Service: 11/09/17 Chief Complaint: Wounds/ulcers of b/l lower legs History of Wound: Di is a 72 yo female patient of Dr. Smith that presents for evaluation and treatment of lower extremity ulcers that have been present since June. Her wounds are very painful. She has been changing the dressings every day with Santyl and denies odor or redness. She elects to proceed with conservative care and not with surgical intervention at this time. She is with her daughter today. Progress of Wound: Stable - Physical Exam Vital Signs Temp Pulse Resp BP 98.4 F 123 H 18 118/64 11/08/17 12:00 11/08/17 12:00 11/08/17 12:00 11/08/17 12:00 General: Alert, Oriented x3, Cooperative Extremities: No cyanosis, Capillary Refill Less than 3 Seconds, No Calf Tenderness - Negative [place] bilateral, Diminished Peripheral Pulses, Edema, Tenderness - Pain with wound manipulation., - - Varicosities bilateral Skin: Ulcer/ Wound - No purulence, no streaking, no odor, no acute signs of infection bilateral. The eschars appear to have some interspersed fibrous tissue and are all well adhered, bilateral, - - The skin is atrophic and hairless bilateral lower extremities Wound Measurements and Assessment MURTAZA - Nurse 1 - General Ulcer Measurement Start: 10/27/17 15:59 Freq: Status: Active Protocol: Activity Type Activity Date Activity User E-Sign Co-Sign Detail Recorded Client Recorded Date Recorded By Document 11/08/17 12:00 [id number] 11/08/17 12:10 11/08/17 12:00 Wound Center Nurse 1 [Ulcer Assessment Protocol: MURTAZA.WD.LOC] #2 Left calf -Combined with other wound No -Current Size (cm) - Length 10.5 -Current Size (cm) - Width 6.0 -Current Size (cm) - Depth 0.1 -Total Square Cm 63.00 -Photo Taken No -Epithelialization None Present -Tunneling No -Undermining/Tunneling No -Circular Undermining No -Exudate Amt Small (1-33%) -Exudate Type Serosanguineous -Wound Margin Flat & Intact -Granulation Amt None Present (0 %) -Slough/Fibrin Yes -Necrosis Amt Large (67-100%) -Necrotic Tissue Type Eschar -Structure Exposed N/A -Texture (Gabriella-wound Skin Appearance) Assessed Excoriation Localized Edema -Moisture (Gabriella-wound Skin Appearance Assessed ) Dry/Scaly -Color (Gabriella-wound Skin Appearance) Assessed Hemosiderin Staining Rubor -Temperature (Gabriella-wound Skin No Abnormality Appearance) (Pt Warm) -Tenderness on Palpation (Gabriella-wound No Skin Appearance) -Ulcer Cleansing Rinsed/ Irrigated with Saline -Foul Odor after Cleansing No -Anesthetic Used 4% Lidocaine Solution #1 RIGHT MEDIAL LE CLUSTER -Combined with other wound No -Current Size (cm) - Length 12.5 -Current Size (cm) - Width 25.5 -Current Size (cm) - Depth 0.1 -Total Square Cm 318.75 -Photo Taken No -Epithelialization None Present -Tunneling No -Undermining/Tunneling No -Circular Undermining No -Exudate Amt Small (1-33%) -Exudate Type Serosanguineous -Wound Margin Flat & Intact -Granulation Amt None Present (0 %) -Slough/Fibrin Yes -Necrosis Amt Large (67-100%) -Necrotic Tissue Type Eschar -Structure Exposed N/A -Texture (Gabriella-wound Skin Appearance) Assessed Localized Edema -Moisture (Gabriella-wound Skin Appearance Assessed ) Dry/Scaly -Color (Gabriella-wound Skin Appearance) Assessed Hemosiderin Staining -Temperature (Gabriella-wound Skin No Abnormality Appearance) (Pt Warm) -Tenderness on Palpation (Gabriella-wound No Skin Appearance) -Ulcer Cleansing Rinsed/ Irrigated with Saline -Foul Odor after Cleansing No -Anesthetic Used 4% Lidocaine Solution [Edema Assessment] -Lower Limb Edema Present Yes -Right Calf (cm) 34.5 -Right Ankle (cm) 22.5 -Left Calf (cm) 34.5 -Left Ankle (cm) 22.3 WC - Nurse 2 - General Ulcer CM Notes Start: 10/27/17 15:59 Freq: Status: Active Protocol: Activity Type Activity Date Activity User E-Sign Co-Sign Detail Recorded Client Recorded Date Recorded By Document 11/08/17 12:15 BJ [id number] 11/08/17 12:16 BJ 11/08/17 12:15 Wound Center Nurse 2 [Procedure/Treatment] #2 Left calf -Correct Patient No -Correct Side, Site, Position No -Correct Procedure No -Procedure Performed No #1 RIGHT MEDIAL LE CLUSTER -Correct Patient No -Correct Side, Site, Position No -Correct Procedure No -Procedure Performed No [See Physician Procedure note for Specifics] Pain Scale: 0-10 Numeric [Pain] -Is Patient Pain Free? Yes Musculoskeletal: No Tenderness to Palpation of Joints or Extremities, Muscle Wasting Neurological: Sensory exam intact to light touch and pain Psych/Mental Status: Normal Affect, Appropriate, Agitated Debridement Note Post-Debridement Measurements/Treatment WC - Nurse 2 - General Ulcer CM Notes Start: 10/27/17 15:59 Freq: Status: Active Protocol: Activity Type Activity Date Activity User E-Sign Co-Sign Detail Recorded Client Recorded Date Recorded By Document 10/27/17 16:51 TM [id number] 10/27/17 16:55 TM Document 11/01/17 14:35 TM [id number] 11/01/17 14:42 TM Document 11/08/17 12:15 [id number] 11/08/17 12:16 10/27/17 11/01/17 11/08/17 16:51 14:35 12:15 Wound Center Nurse 2 #2 Left calf -Time 16:51 14:36 -Correct Patient Yes Yes No -Correct Side, Site, Position Yes Yes No -Correct Procedure Yes Yes No -Procedure Performed Yes Yes No -Post Debridement Size (cm) - Length 10.7 -Post Debridement Size (cm) - Width 10.7 -Post Debridement Size (cm) - Depth 0.1 -Total Square Cm 114.49 -Wound/Ulcer Outcome Not Healed Not Healed -Ulcer Cleansing Not Cleansed Rinsed/ Irrigated with Saline -Foul Odor after Cleansing No -Bioengineered Tissue No No -Cetacaine [place] No -Bleeding Controlled with NA NA -Other NO DEBRIDEMENT no debridement TODAY H&P FOR today consents SURGERY for surgical CLEARANCE debridement 11/03 -Treatment Response Procedure Tolerated Well #1 RIGHT MEDIAL LE CLUSTER -Time 16:52 14:37 -Correct Patient Yes Yes No -Correct Side, Site, Position Yes Yes No -Correct Procedure Yes Yes No -Procedure Performed Yes Yes No -Post Debridement Size (cm) - Length 14.0 -Post Debridement Size (cm) - Width 14.0 -Post Debridement Size (cm) - Depth 0.1 -Total Square Cm 196.00 -Wound/Ulcer Outcome Not Healed Not Healed -Ulcer Cleansing Not Cleansed Rinsed/ Irrigated with Saline -Foul Odor after Cleansing No No -Bioengineered Tissue No No -Cetacaine [place] No -Bleeding Controlled with NA NA -Other NO DEBRIDEMENT no debridement TODAY H&P FOR today consents SURGERY for surgical CLEARANCE debridement 11/03 -Treatment Response Procedure Tolerated Well Pain Scale: 0-10 Numeric Is Patient Pain Free? Yes Yes Yes No debridement was completed today - This is not tolerated and this is refused. We will proceed with enzymatic debridement Assessment/Plan Active Problems (Last Updated 10/11/17 @ 09:06 by Gosia Martinez) Right leg pain (Chronic) Left leg pain (Chronic) Calcinosis (Chronic) Edema, lower extremity (Chronic) Pulmonary hypertension, secondary (Chronic) History of cardiac radiofrequency ablation (RFA) (Chronic) 1st part of MAZE procedure Lt Atrial Ablation 01/12/17 @ [facility] Localized edema (Chronic) Heart failure with 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 (Chronic) [facility] current use of anticoagulant (Chronic) Chronic atrial fibrillation (Chronic) [facility] 10/10, 10/2015; MAZE procedure @ [place] 01/12/2017; Chronic diastolic (congestive) heart failure (Chronic) Hypertension (Chronic) Type 2 diabetes mellitus (Chronic) Chronic kidney disease, stage 3 (Chronic) 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 Delayed healing. venous insufficiency. Malnutrition suspected. Lower extremity pain. Differential diagnoses includes calcinosis. Multiple comorbidities noted Plan: Di's wounds were evaluated she was not able to tolerate any type of debridement today. She is demonstrating significant delays in healing and is unable to tolerate debridements due to pain. She defers surgical intervention such as an operating room debridement application of advanced wound care product. She is doing well with daily Santyl changes. It was reported her INR was at 9.4 today. This is another reason debridement was not performed today and I advised extreme caution while transferring back to her home. Continue to use tubigrips for light compression. Labs reviewed which included ESR and CRP were elevated, HASEEB negative, Calcium WNL, PTH was low. She will follow up with Dr. Pelaez afternoon for evaluation of her arterial Doppler exam which appeared to have distal perfusion. Continue to follow up with Dr. Carbajal as scheduled for pain management. Encouraged her to elevated legs as much as possible, avoid idle sitting or standing, increase activity, as well as weight management. We reviewed the basics of wound healing again today. It was reiterated that her medical comorbidities do complicate her course and her treatment plan will be a staged progressive plan that is subject to change as the wound progresses and changes. To return to clinic in 1 week. She is to call if increased drainage or changes in wounds or if the patient or her daughter has additional concerns or questions.
[2017-11-15 11:44] VITALS: BP 111/71; PULSE 116; RESP 18; TEMP 36.4; BMI 35.4
--- NOTE | 2017-11-15 13:23 | PN.PCM_ITS ---
(1) Right leg pain Status: Chronic Current Visit: Yes Code(s): M79.604 - Pain in right leg (2) Left leg pain Status: Chronic Current Visit: Yes Code(s): M79.605 - Pain in left leg (3) Edema, lower extremity Status: Chronic Current Visit: Yes Code(s): R60.0 - Localized edema (4) Localized edema Status: Chronic Current Visit: Yes Code(s): R60.0 - Localized edema (5) Type 2 diabetes mellitus Status: Chronic Current Visit: Yes Qualifiers: Diabetes mellitus complication status: with kidney complications Diabetes mellitus complication detail: with chronic kidney disease Diabetes mellitus director long term care insulin use: without director long term care use Chronic kidney disease stage: stage 3 (moderate) Qualified Code(s): E11.22 - Type 2 diabetes mellitus with diabetic chronic kidney disease; N18.3 - Chronic kidney disease, stage 3 ( moderate) Code(s): E11.9 - Type 2 diabetes mellitus without complications (6) PAD (peripheral artery disease) Status: Chronic Current Visit: Yes Code(s): I73.9 - Peripheral vascular disease, unspecified (7) Venous stasis ulcer of left lower leg with edema of left lower leg Status: Chronic Current Visit: Yes Code(s): I83.892 - Varicose veins of left lower extremity with other complications; I83.028 - Varicose veins of left lower extremity with ulcer other part of lower leg; R60.9 - Edema, unspecified (8) Venous stasis ulcer of right lower leg with edema of right lower leg Status: Chronic Current Visit: Yes Code(s): I83.891 - Varicose veins of right lower extremity with other complications; I83.018 - Varicose veins of right lower extremity with ulcer other part of lower leg; R60.9 - Edema, unspecified (9) Calcinosis Status: Chronic Current Visit: Yes Code(s): E83.59 - Other disorders of calcium metabolism Type of Wound Date of Service: 11/15/17 Chief Complaint: Wounds/ulcers of b/l lower legs History of Wound: Di is a 72 yo female patient of Dr. Smith that presents for evaluation and treatment of lower extremity ulcers that have been present since June. Her wounds are very painful. She has been changing the dressings every day with Santyl and denies odor or redness. She elects to proceed with conservative care and not with surgical intervention at this time. She is with her daughter today. She denies fever, chill, nausea, vomiting. Progress of Wound: Stable - Physical Exam Vital Signs Temp Pulse Resp BP 97.5 F L 116 H 18 111/71 11/15/17 11:44 11/15/17 11:44 11/15/17 11:44 11/15/17 11:44 General: Alert, Oriented x3, Cooperative Extremities: No cyanosis, Capillary Refill Less than 3 Seconds, No Calf Tenderness, Diminished Peripheral Pulses, Edema Skin: Ulcer/ Wound - No crepitus on palpation periwound sites. The skin is atrophic and hairless bilateral. There is no maceration, no purulence, no erythema, no streaking, no odor. The wound beds are with eschars and increased fibrotic tissue that is now moist. There is no deep tissue exposed. Wound Measurements and Assessment WC - Nurse 1 - General Ulcer Measurement Start: 10/27/17 15:59 Freq: Status: Active Protocol: Activity Type Activity Date Activity User E-Sign Co-Sign Detail Recorded Client Recorded Date Recorded By Document 11/15/17 11:44 MW [id number] 11/15/17 11:55 MW 11/15/17 11:44 Wound Center Nurse 1 [Ulcer Assessment] #2 Left calf -Combined with other wound No -Current Size (cm) - Length 11.0 -Current Size (cm) - Width 11.8 -Current Size (cm) - Depth 0.1 -Total Square Cm 129.80 -Date of Last Picture (Recall this 11/15/17 field) -Photo Taken Yes -Epithelialization None Present -Tunneling No -Undermining/Tunneling No -Circular Undermining No -Exudate Amt Small (1-33%) -Exudate Type Serosanguineous -Wound Margin Flat & Intact -Granulation Amt None Present (0 %) -Granulation Quality N/A -Slough/Fibrin Yes -Necrosis Amt Large (67-100%) -Necrotic Tissue Type Adherent Slough -Structure Exposed N/A -Texture (Gabriella-wound Skin Appearance) Assessed Localized Edema -Moisture (Gabriella-wound Skin Appearance Assessed ) Dry/Scaly -Color (Gabriella-wound Skin Appearance) Assessed Erythema Rubor -Temperature (Gabriella-wound Skin No Abnormality Appearance) (Pt Warm) -Tenderness on Palpation (Gabriella-wound Yes Skin Appearance) -Ulcer Cleansing Rinsed/ Irrigated with Saline -Foul Odor after Cleansing No -Anesthetic Used 4% Lidocaine Solution #1 RIGHT MEDIAL LE CLUSTER -Combined with other wound No -Current Size (cm) - Length 14.3 -Current Size (cm) - Width 25.0 -Current Size (cm) - Depth 0.1 -Total Square Cm 357.50 -Date of Last Picture (Recall this 11/15/17 field) -Photo Taken Yes -Epithelialization None Present -Tunneling No -Undermining/Tunneling No -Circular Undermining No -Exudate Amt Medium (34-66%) -Exudate Type Serosanguineous -Wound Margin Flat & Intact -Granulation Amt None Present (0 %) -Granulation Quality N/A -Slough/Fibrin Yes -Necrosis Amt Large (67-100%) -Necrotic Tissue Type Adherent Slough -Structure Exposed N/A -Texture (Gabriella-wound Skin Appearance) Assessed Localized Edema -Moisture (Gabriella-wound Skin Appearance Assessed ) Dry/Scaly -Color (Gabriella-wound Skin Appearance) Assessed Erythema Rubor -Temperature (Gabriella-wound Skin No Abnormality Appearance) (Pt Warm) -Tenderness on Palpation (Gabriella-wound Yes Skin Appearance) -Ulcer Cleansing Rinsed/ Irrigated with Saline -Foul Odor after Cleansing No -Anesthetic Used 4% Lidocaine Solution [Edema Assessment] -Lower Limb Edema Present Yes -Right Calf (cm) 35.5 -Right Ankle (cm) 23.6 -Left Calf (cm) 34.6 -Left Ankle (cm) 22.5 WC - Nurse 2 - General Ulcer CM Notes Start: 10/27/17 15:59 Freq: Status: Active Protocol: Activity Type Activity Date Activity User E-Sign Co-Sign Detail Recorded Client Recorded Date Recorded By Document 11/15/17 12:30 BJ [id number] 11/15/17 12:31 BJ 11/15/17 12:30 Wound Center Nurse 2 [Procedure/Treatment] #2 Left calf -Correct Patient No -Correct Side, Site, Position No -Correct Procedure No -Procedure Performed No #1 RIGHT MEDIAL LE CLUSTER -Correct Patient No -Correct Side, Site, Position No -Correct Procedure No -Procedure Performed No [See Physician Procedure note for Specifics] Pain Scale: 0-10 Numeric [Pain] -Is Patient Pain Free? Yes Musculoskeletal: No Tenderness to Palpation of Joints or Extremities, Muscle Wasting Neurological: Sensory exam intact to light touch and pain Psych/Mental Status: Normal Affect, Appropriate Debridement Note Post-Debridement Measurements/Treatment WC - Nurse 2 - General Ulcer CM Notes Start: 10/27/17 15:59 Freq: Status: Active Protocol: Activity Type Activity Date Activity User E-Sign Co-Sign Detail Recorded Client Recorded Date Recorded By Document 10/27/17 16:51 [id number] 10/27/17 16:55 TM Document 11/01/17 14:35 [id number] 11/01/17 14:42 TM Document 11/08/17 12:15 [id number] 11/08/17 12:16 Document 11/15/17 12:30 [id number] 11/15/17 12:31 10/27/17 11/01/17 11/08/17 16:51 14:35 12:15 Wound Center Nurse 2 #2 Left calf -Time 16:51 14:36 -Correct Patient Yes Yes No -Correct Side, Site, Position Yes Yes No -Correct Procedure Yes Yes No -Procedure Performed Yes Yes No -Post Debridement Size (cm) - Length 10.7 -Post Debridement Size (cm) - Width 10.7 -Post Debridement Size (cm) - Depth 0.1 -Total Square Cm 114.49 -Wound/Ulcer Outcome Not Healed Not Healed -Ulcer Cleansing Not Cleansed Rinsed/ Irrigated with Saline -Foul Odor after Cleansing No -Bioengineered Tissue No No -Cetacaine [place] No -Bleeding Controlled with NA NA -Other NO DEBRIDEMENT no debridement TODAY H&P FOR today consents SURGERY for surgical CLEARANCE debridement 11/03 -Treatment Response Procedure Tolerated Well #1 RIGHT MEDIAL LE CLUSTER -Time 16:52 14:37 -Correct Patient Yes Yes No -Correct Side, Site, Position Yes Yes No -Correct Procedure Yes Yes No -Procedure Performed Yes Yes No -Post Debridement Size (cm) - Length 14.0 -Post Debridement Size (cm) - Width 14.0 -Post Debridement Size (cm) - Depth 0.1 -Total Square Cm 196.00 -Wound/Ulcer Outcome Not Healed Not Healed -Ulcer Cleansing Not Cleansed Rinsed/ Irrigated with Saline -Foul Odor after Cleansing No No -Bioengineered Tissue No No -Cetacaine [place] No -Bleeding Controlled with NA NA -Other NO DEBRIDEMENT no debridement TODAY H&P FOR today consents SURGERY for surgical CLEARANCE debridement 11/03 -Treatment Response Procedure Tolerated Well Pain Scale: 0-10 Numeric Is Patient Pain Free? Yes Yes Yes 11/15/17 12:30 Wound Center Nurse 2 #2 Left calf -Time -Correct Patient No -Correct Side, Site, Position No -Correct Procedure No -Procedure Performed No -Post Debridement Size (cm) - Length -Post Debridement Size (cm) - Width -Post Debridement Size (cm) - Depth -Total Square Cm -Wound/Ulcer Outcome -Ulcer Cleansing -Foul Odor after Cleansing -Bioengineered Tissue -Cetacaine [place] -Bleeding Controlled with -Other -Treatment Response #1 RIGHT MEDIAL LE CLUSTER -Time -Correct Patient No -Correct Side, Site, Position No -Correct Procedure No -Procedure Performed No -Post Debridement Size (cm) - Length -Post Debridement Size (cm) - Width -Post Debridement Size (cm) - Depth -Total Square Cm -Wound/Ulcer Outcome -Ulcer Cleansing -Foul Odor after Cleansing -Bioengineered Tissue -Cetacaine [place] -Bleeding Controlled with -Other -Treatment Response Pain Scale: 0-10 Numeric Is Patient Pain Free? Yes No debridement was completed today - Refused due to lack of tolerance. 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 Delayed healing. venous insufficiency. Malnutrition suspected. Lower extremity pain. Differential diagnoses includes calcinosis. Multiple comorbidities noted. On chronic anticoagulation medication; recently changed from Xarelto to Coumadin Plan: Aminatas wounds were evaluated she was not able to tolerate any type of debridement today. She is demonstrating significant delays in healing and is unable to tolerate debridements due to pain. She defers surgical intervention such as an operating room debridement application of advanced wound care product. She is doing well with daily Santyl changes. It was reported her INR was at 9.4 last week. Her anticoagulation medication was changed from Coumadin to Xarelto. Until this stabilizes debridement will not be performed in the clinical setting. Her daughter reports last week a vein was nearly bumped during a dressing change and she had pulsatile bleeding that would not stop. This is not noted today. This is another reason debridement was not performed today and I advised extreme caution while transferring back to her home. Continue to use tubigrips for light compression. Labs reviewed which included ESR and CRP were elevated, HASEEB negative, Calcium WNL, PTH was low. She will follow up with Dr. Pelaez afternoon for evaluation of her arterial Doppler exam which appeared to have distal perfusion. Continue to follow up with Dr. Carbajal as scheduled for pain management. Encouraged her to elevated legs as much as possible, avoid idle sitting or standing, increase activity, as well as weight management. We reviewed the basics of wound healing again today. It was reiterated that her medical comorbidities do complicate her course and her treatment plan will be a staged progressive plan that is subject to change as the wound progresses and changes. To return to clinic in 1 week. She is to call if increased drainage or changes in wounds or if the patient or her daughter has additional concerns or questions.
[2017-11-22 08:45] VITALS: BP 127/75; PULSE 115; RESP 18; TEMP 36.6; BMI 35.4
--- NOTE | 2017-11-22 11:43 | PN.PCM_ITS ---
(1) Venous stasis ulcer of right lower leg with edema of right lower leg Status: Chronic Current Visit: Yes Code(s): I83.891 - Varicose veins of right lower extremity with other complications; I83.018 - Varicose veins of right lower extremity with ulcer other part of lower leg; R60.9 - Edema, unspecified (2) Venous stasis ulcer of left lower leg with edema of left lower leg Status: Chronic Current Visit: Yes Code(s): I83.892 - Varicose veins of left lower extremity with other complications; I83.028 - Varicose veins of left lower extremity with ulcer other part of lower leg; R60.9 - Edema, unspecified (3) Right leg pain Status: Chronic Current Visit: Yes Code(s): M79.604 - Pain in right leg (4) Left leg pain Status: Chronic Current Visit: Yes Code(s): M79.605 - Pain in left leg (5) Edema, lower extremity Status: Chronic Current Visit: Yes Code(s): R60.0 - Localized edema (6) Localized edema Status: Chronic Current Visit: Yes Code(s): R60.0 - Localized edema (7) Type 2 diabetes mellitus Status: Chronic Current Visit: Yes Qualifiers: Diabetes mellitus complication status: with kidney complications Diabetes mellitus complication detail: with chronic kidney disease 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: 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 use Chronic kidney disease stage: stage 3 (moderate) Qualified Code(s): E11.22 - Type 2 diabetes mellitus with diabetic chronic kidney disease; N18.3 - Chronic kidney disease, stage 3 ( moderate) Code(s): E11.9 - Type 2 diabetes mellitus without complications (8) PAD (peripheral artery disease) Status: Chronic Current Visit: Yes Code(s): I73.9 - Peripheral vascular disease, unspecified (9) Calcinosis Status: Chronic Current Visit: Yes Code(s): E83.59 - Other disorders of calcium metabolism Type of Wound Date of Service: 11/22/17 Chief Complaint: Wounds/ulcers of b/l lower legs History of Wound: Di is a 72 yo female patient of Dr. Smith that presents for evaluation and treatment of lower extremity ulcers that have been present since June. Her wounds are very painful. She has been changing the dressings every day with Santyl and denies odor or redness. She elects to proceed with conservative care and not with surgical intervention at this time. She is with her daughter today. She denies fever, chill, nausea, vomiting. Progress of Wound: Stable - Physical Exam Vital Signs Temp Pulse Resp BP 97.9 F 115 H 18 127/75 H 11/22/17 08:45 11/22/17 08:45 11/22/17 08:45 11/22/17 08:45 General: Alert, Oriented x3, Cooperative Extremities: No cyanosis, Capillary Refill Less than 3 Seconds, No Calf Tenderness, Diminished Peripheral Pulses, Edema Skin: Ulcer/ Wound - No purulence, no erythema, no streaking, no odor. The wounds are changing to more fibrous base., - - The peripheral skin is atrophic Wound Measurements and Assessment WC - Nurse 1 - General Ulcer Measurement Start: 10/27/17 15:59 Freq: Status: Active Protocol: Activity Type Activity Date Activity User E-Sign Co-Sign Detail Recorded Client Recorded Date Recorded By Document 11/22/17 08:45 DL [id number] 11/22/17 08:50 DL 11/22/17 08:45 Wound Center Nurse 1 [Ulcer Assessment] #2 Left calf -Current Size (cm) - Length 11 -Current Size (cm) - Width 12.5 -Current Size (cm) - Depth 0.1 -Total Square Cm 137.5 -Photo Taken No -Exudate Amt Small (1-33%) -Exudate Type Serosanguineous -Wound Margin Distinct, Outline Attached -Granulation Amt None Present (0 %) -Necrosis Amt Large (67-100%) -Necrotic Tissue Type Adherent Slough -Structure Exposed N/A -Texture (Gabriella-wound Skin Appearance) Scarring -Moisture (Gabriella-wound Skin Appearance No Abnormality ) -Color (Gabriella-wound Skin Appearance) Erythema -Temperature (Gabriella-wound Skin No Abnormality Appearance) (Pt Warm) -Ulcer Cleansing Rinsed/ Irrigated with Saline -Foul Odor after Cleansing No #1 RIGHT MEDIAL LE CLUSTER -Current Size (cm) - Length 13.5 -Current Size (cm) - Width 23.3 -Current Size (cm) - Depth 0.1 -Total Square Cm 314.55 -Photo Taken No -Exudate Amt Small (1-33%) -Exudate Type Serosanguineous -Wound Margin Distinct, Outline Attached -Granulation Amt Small (1-33%) -Granulation Quality Pale -Necrosis Amt Large (67-100%) -Necrotic Tissue Type Adherent Slough -Structure Exposed N/A -Texture (Gabriella-wound Skin Appearance) Scarring -Moisture (Gabriella-wound Skin Appearance No Abnormality ) -Color (Gabriella-wound Skin Appearance) Erythema -Ulcer Cleansing Rinsed/ Irrigated with Saline -Foul Odor after Cleansing No [Edema Assessment] -Right Calf (cm) 33 -Right Ankle (cm) 22 -Left Calf (cm) 33 -Point of measurement (cm from the 21.7 medial instep) Musculoskeletal: No Tenderness to Palpation of Joints or Extremities, Muscle Wasting Neurological: Sensory exam intact to light touch and pain Psych/Mental Status: Normal Affect, Appropriate Debridement Note Post-Debridement Measurements/Treatment WC - Nurse 2 - General Ulcer CM Notes Start: 10/27/17 15:59 Freq: Status: Active Protocol: Activity Type Activity Date Activity User E-Sign Co-Sign Detail Recorded Client Recorded Date Recorded By Document 10/27/17 16:51 [id number] 10/27/17 16:55 Document 11/01/17 14:35 [id number] 11/01/17 14:42 Document 11/08/17 12:15 [id number] 11/08/17 12:16 Document 11/15/17 12:30 [id number] 11/15/17 12:31 10/27/17 11/01/17 11/08/17 16:51 14:35 12:15 Wound Center Nurse 2 #2 Left calf -Time 16:51 14:36 -Correct Patient Yes Yes No -Correct Side, Site, Position Yes Yes No -Correct Procedure Yes Yes No -Procedure Performed Yes Yes No -Post Debridement Size (cm) - Length 10.7 -Post Debridement Size (cm) - Width 10.7 -Post Debridement Size (cm) - Depth 0.1 -Total Square Cm 114.49 -Wound/Ulcer Outcome Not Healed Not Healed -Ulcer Cleansing Not Cleansed Rinsed/ Irrigated with Saline -Foul Odor after Cleansing No -Bioengineered Tissue No No -Cetacaine Colp No -Bleeding Controlled with NA NA -Other NO DEBRIDEMENT no debridement TODAY H&P FOR today consents SURGERY for surgical CLEARANCE debridement 11/03 -Treatment Response Procedure Tolerated Well #1 RIGHT MEDIAL LE CLUSTER -Time 16:52 14:37 -Correct Patient Yes Yes No -Correct Side, Site, Position Yes Yes No -Correct Procedure Yes Yes No -Procedure Performed Yes Yes No -Post Debridement Size (cm) - Length 14.0 -Post Debridement Size (cm) - Width 14.0 -Post Debridement Size (cm) - Depth 0.1 -Total Square Cm 196.00 -Wound/Ulcer Outcome Not Healed Not Healed -Ulcer Cleansing Not Cleansed Rinsed/ Irrigated with Saline -Foul Odor after Cleansing No No -Bioengineered Tissue No No -Cetacaine Colp No -Bleeding Controlled with NA NA -Other NO DEBRIDEMENT no debridement TODAY H&P FOR today consents SURGERY for surgical CLEARANCE debridement 11/03 -Treatment Response Procedure Tolerated Well Pain Scale: 0-10 Numeric Is Patient Pain Free? Yes Yes Yes 11/15/17 12:30 Wound Center Nurse 2 #2 Left calf -Time -Correct Patient No -Correct Side, Site, Position No -Correct Procedure No -Procedure Performed No -Post Debridement Size (cm) - Length -Post Debridement Size (cm) - Width -Post Debridement Size (cm) - Depth -Total Square Cm -Wound/Ulcer Outcome -Ulcer Cleansing -Foul Odor after Cleansing -Bioengineered Tissue -Cetacaine Colp -Bleeding Controlled with -Other -Treatment Response #1 RIGHT MEDIAL LE CLUSTER -Time -Correct Patient No -Correct Side, Site, Position No -Correct Procedure No -Procedure Performed No -Post Debridement Size (cm) - Length -Post Debridement Size (cm) - Width -Post Debridement Size (cm) - Depth -Total Square Cm -Wound/Ulcer Outcome -Ulcer Cleansing -Foul Odor after Cleansing -Bioengineered Tissue -Cetacaine Colp -Bleeding Controlled with -Other -Treatment Response Pain Scale: 0-10 Numeric Is Patient Pain Free? Yes No debridement was completed today - Refuses to the pain Assessment/Plan Active Problems (Last Updated 10/11/17 @ 09:06 by Gosia Martinez) Right leg pain (Chronic) Left leg pain (Chronic) Calcinosis (Chronic) Edema, lower extremity (Chronic) Pulmonary hypertension, secondary (Chronic) History of cardiac radiofrequency ablation (RFA) (Chronic) 1st part of MAZE procedure Lt Atrial Ablation 01/12/17 @ [facility] Localized edema (Chronic) Heart failure with 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 (Chronic) long term current use of anticoagulant (Chronic) Chronic atrial fibrillation (Chronic) DCCV 10/10, 10/2015; MAZE procedure @ [facility] 01/12/2017; Chronic diastolic (congestive) heart failure (Chronic) Hypertension (Chronic) Type 2 diabetes mellitus (Chronic) Chronic kidney disease, stage 3 (Chronic) 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 Delayed healing. venous insufficiency. Malnutrition suspected. Lower extremity pain. Differential diagnoses includes calcinosis. Multiple comorbidities noted. On chronic anticoagulation medication; recently changed from Xarelto to Coumadin Plan: Di's wounds were evaluated she was not able to tolerate any type of debridement today. She is demonstrating significant delays in healing and is unable to tolerate debridements due to pain. She defers surgical intervention such as an operating room debridement application of advanced wound care product. She is doing well with daily Santyl changes. Labs reviewed which included ESR and CRP were elevated, HASEEB negative, Calcium WNL, PTH was low. She will follow up with Dr. Pelaez afternoon for evaluation of her arterial Doppler exam which appeared to have distal perfusion. Continue to follow up with Dr. Carbajal as scheduled for pain management. Encouraged her to elevated legs as much as possible, avoid idle sitting or standing, increase activity, as well as weight management. We reviewed the basics of wound healing again today. It was reiterated that her medical comorbidities do complicate her course and her treatment plan will be a staged progressive plan that is subject to change as the wound progresses and changes. Upon decreased eschar and fibrous tissue additional advanced wound care products will be considered when appropriate. To return to clinic in 1 week. She is to call if increased drainage or changes in wounds or if the patient or her daughter has additional concerns or questions.
== END 2017-11-22 23:59 ==
LOC: WC 08:45
PROVIDERS: Family Provider Internal Medicine; PCP Internal Medicine; Visit Provider Podiatrist
DX: E11.622 Type 2 diabetes mellitus with other skin ulcer (principal); E11.51 Type 2 diabetes mellitus with diabetic peripheral angiopathy without gangrene; I13.0 Hypertensive heart and chronic kidney disease with heart failure and stage 1 through stage 4 chronic kidney disease, or unspecified chronic kidney disease; I50.32 Chronic diastolic (congestive) heart failure; N18.3 Chronic kidney disease, stage 3 (moderate); E11.22 Type 2 diabetes mellitus with diabetic chronic kidney disease; Z79.82 Long term (current) use of aspirin; I48.2 Chronic atrial fibrillation; Z79.01 Long term (current) use of anticoagulants; M48.061 Spinal stenosis, lumbar region without neurogenic claudication; I83.018 Varicose veins of right lower extremity with ulcer other part of lower leg; I83.028 Varicose veins of left lower extremity with ulcer other part of lower leg; L97.819 Non-pressure chronic ulcer of other part of right lower leg with unspecified severity; L97.829 Non-pressure chronic ulcer of other part of left lower leg with unspecified severity
CPT/HCPCS: 36415; 36416; 80048; 83036; 85610; 97602; 99212; 99214; G0463

== ENCOUNTER 2017-11-29 07:30 | Emergency (ER) | payer MEDICARE, SELFPAY ==
[2017-11-29 07:31] VITALS: BP 112/64; PULSE 109; RESP 16; TEMP 36.9; O2SAT 97; BMI 30.8
--- NOTE | 2017-11-29 07:53 | CT_ITS ---
STUDY: CT BRAIN WITHOUT CONTRAST REASON FOR EXAM: Female, 72 years old. Laceration following a fall. The patient is on anticoagulants. RADIATION DOSAGE (If Supplied By Facility): CTDIvol = ( 44.99 ) mGy, DLP = ( 779.24 ) mGycm TECHNIQUE: Transaxial CT imaging of the brain was performed without administration of intravenous contrast material. Individualized dose optimization techniques were used for this CT. COMPARISON: None. FINDINGS: Scalp hematoma overlying the left posterior parietal bone in the convexity. Normal calvarium. There is mild cerebral atrophy with widening of the extra-axial spaces and ventricular dilatation. Normal white matter tracts of the cerebral hemispheres. Normal basal ganglia and thalami. Normal brainstem. Normal cerebellum. There is no intracranial hemorrhage. There are no findings of an acute ischemic infarction. Normal visualized paranasal sinuses. CT/Brain/Head without Contrast IMPRESSION: Chronic involutional changes of the brain. Electronically Signed: Carlos Cai MD at 8:32 EST Tel [phone], Service support ,
--- NOTE | 2017-11-29 08:44 | ED.DCSUM_ITS ---
- ER Visit Summary Date of Service: 11/29/17 Chief Complaint: Head trauma status post mechanical fall History of Present Illness: The patient is a 72 F who states she was walking on the steps to leave for her wound care appointment. Her leg twitched, which is not an abnormal occurrence. This caused her to fall. She states she hit her head. She sustained a laceration. She denies headache. She denies any trouble with her vision. Denies trouble with speech or swallowing. She denies neck pain. She denies any numbness or tingling or upper extremity. She does have problems with venous stasis and neuropathy lower extremity. She denies nausea or vomiting. She has no other complaints please read written note for complete detail. She does report bruising easily since she is on Xarelto for A. fib. She states she has not taken her morning dose. She was instructed to hold today's dose and tomorrow's dose. Physical Examination: Vital signs are marked for rapid heart rate. Had is normocephalic. She has a 2 cm laceration left parietal occipital region. There is no palpable depression. There are no clinical signs of basal skull fracture. Pupils equal round reactive. Extra muscle intact. She has no cervical spine tenderness. Bruising is noted. Heart is rapid. There is no respiratory distress and lungs are clear to auscultation. GCS is 15. Patient is alert and oriented ?3. Motor is 5/5. Sensation is intact. DTRs are symmetric without clonus or Babinski. Cranial nerves II through XII are intact. Finger to nose to finger was performed adequately. Test Results: CT of the head reviewed by me interpreted radiologist no acute process. Emergency Department Course and Treatment: Because patient fell has a laceration in the fact that she is over the age of 72 and on Xarelto based on the Wagoner CT head rule and the [place] rule radiologic imaging is indicated. Wound was prepped draped sterile manner. Cleansed with Betadine. The wound was irrigated. The wound was then anesthetized by local infiltration using 1% lidocaine. 3 peña were placed with good cosmesis. Treatment Plan: Patient was instructed to hold Xarelto dose today and tomorrow. Resume Xarelto on Monday. Wound care and staple removal in 7 days Disposition: Discharged home in stable and improved condition with Impression: 1. Closed head injury initial encounter 2. High risk medication, Xarelto 3. Scalp laceration 2.0 cm This note was generated with [employer] dictation software. It may contain incorrect words, spelling, and punctuation that were not noted in review of the chart prior to signing ED Disposition - Plan for ED Patient: Disposition: Home or Assisted Living Chief Complaint: Head Injury Instructions: ED Head Injury Closed, ED Laceration Scalp Stitch Or Stap Referrals: Aaron Tidwell MD [Primary Care Provider] - 7 Days for suture removal Additional Instructions: Do not take your Xarelto dose for today and tomorrow. Resume Xarelto on MondayDecember 01.
[2017-11-29 09:13] VITALS: PULSE 106; RESP 16
--- NOTE | 2017-11-29 09:14 | ED.RN ---
DAUGHTER COMPLAINED THAT THERE WAS BLOOD ON/IN MOTHER HAIR/HEAD, ASKED WHY I HAD NOT CLEANED IT UP. THIS RN EXPLAINED THAT IT BEEN CLEANED EARLIER AND WHEN SHE SAT UP THAT I WAS GOING TO CLEAN IT BETTER, THAT I HAD THE SUPPLIES BY THE SINK. EXPLAINED TO THE DAUGHTER THAT IT WOULD CONTINUE TO BLEED SOME AND THAT WHEN SHE WASHED HER HAIR THAT IT WOULD HELP WITH THE REMAINING DRIED BLOOD. DAUGHTER STATED THAT HER MOTHER DOES NOT SHOWER, IT IS TO HARD FOR HER TO GET IN AND OUT OF THE TUB. FOR THE MOST PART THE DRIED BLOOD WAS CLEANED OFF THE PT; HOWEVER, HER LAC WAS SEEPING SOME BLOOD STILL, WHICH THE DAUGHTER ALSO COMPLAINED ABOUT. I PUT A CHUCKS AROUND THE PT'S SHOULDER TO CATCH THE MINIMAL AMT OF BLOOD DRAINING.... 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 THE PT WENT HOME IN A GOWN WITH HER PANTS ON.
[2017-11-29 11:42] LABS: Albumin, Serum 2.2 g/dL (3.2-5.0); BUN 58 mg/dL (7-18); BUN/Creat Ratio 20.9 RATIO (10-20); Calcium,Total 9.2 mg/dL (8.5-10.1); Chloride 101 mmol/L (98-107); Creatinine, Serum 2.78 mg/dL (0.55-1.02); EST Glomerular Filtration Rate 18 mL/min (>60); Est Glom Filt Rate - Afr Amer 22 mL/min (>60); Estimated Creatinine Clearance 15.35 ml/min; Glucose 103 mg/dL (74-106); Phosphorus 3.9 mg/dL (2.5-4.9); Potassium 4.3 mmol/L (3.5-5.1); Sodium Level 137 mmol/L (136-145)
[2017-11-29 11:49] LABS: PTHIN 2.8 pg/mL (18.4-80.1)
[2017-12-05 11:33] LABS: Vitamin D 1,25-Dihydroxy 68.7 pg/mL (19.9-79.3)
== END 2017-11-29 09:24 | disposition home or self-care (01) ==
PROVIDERS: Emergency Provider Emergency Medicine; Family Provider Internal Medicine; PCP Internal Medicine
DX: S01.01XA Laceration without foreign body of scalp, initial encounter (principal); W10.9XXA Fall (on) (from) unspecified stairs and steps, initial encounter; Y93.9 Activity, unspecified; Y92.538 Other ambulatory health services establishments as the place of occurrence of the external cause; Y99.9 Unspecified external cause status; I48.91 Unspecified atrial fibrillation; F32.9 Major depressive disorder, single episode, unspecified; E78.00 Pure hypercholesterolemia, unspecified; I25.10 Atherosclerotic heart disease of native coronary artery without angina pectoris; N18.6 End stage renal disease; I12.0 Hypertensive chronic kidney disease with stage 5 chronic kidney disease or end stage renal disease; Z79.01 Long term (current) use of anticoagulants
CPT/HCPCS: 12001; 36415; 70450; 80069; 82306; 82652; 83970; 99283

== ENCOUNTER 2017-12-01 08:50 | Emergency (ER) | payer MEDICARE, SELFPAY ==
[2017-12-01 08:52] VITALS: BP 114/77; PULSE 103; RESP 16; TEMP 36.6; O2SAT 100; BMI 30.8
--- NOTE | 2017-12-01 09:15 | CT_ITS ---
STUDY: CT BRAIN WITHOUT CONTRAST REASON FOR EXAM: Female, 72 years old. Increasing confusion following a headache. History of scalp laceration. RADIATION DOSAGE (If Supplied By Facility): CTDIvol = ( 44.99 ) mGy, DLP = ( 779.24 ) mGycm TECHNIQUE: Transaxial CT imaging of the brain was performed without administration of intravenous contrast material. Individualized dose optimization techniques were used for this CT. COMPARISON: Comparison is made with prior study dated November 29, 2017. FINDINGS: Metallic sutures are seen in the scalp overlying the posterior left parietal occipital bone. Normal calvarium. There is mild cerebral atrophy with widening of the extra-axial spaces and ventricular dilatation. There are areas of decreased attenuation within the white matter tracts of the supratentorial brain, consistent with microvascular disease changes. Normal basal ganglia and thalami. Normal brainstem. Normal cerebellum. There is no intracranial hemorrhage. There are no findings of an acute ischemic infarction. Normal visualized paranasal sinuses. CT/Brain/Head without Contrast IMPRESSION: Chronic involutional changes of the brain. Electronically Signed: Carlos Cai MD at 11:12 EST Tel [phone], Service support ,
--- NOTE | 2017-12-01 09:15 | EKG12_ITS ---
Test Reason : Blood Pressure : / mmHG Vent. Rate : 097 BPM Atrial Rate : 110 BPM P-R Int : 000 ms QRS Dur : 088 ms QT Int : 360 ms P-R-T Axes : 000 098 243 degrees QTc Int : 457 ms Atrial fibrillation Lateral infarct , age undetermined Inferior infarct , age undetermined Abnormal ECG Confirmed by MOODY BACON, ABISAI ([id number]), medical editor CARLENE NELSON ([id number]) on 12/04/2017 2:53:15 PM Referred By: VAISHNAVI Confirmed By:ABISAI URIOSTEGUI MD
--- NOTE | 2017-12-01 09:19 | ED.VISSUMM ---
- ER Visit Summary Date of Service: 12/01/17 Chief Complaint: confusion History of Present Illness: The patient is a 72 F who fell 3 days ago with head trauma who presents today for confusion. Patient is on Xarelto and was evaluated 3 days ago for a head trauma from a fall. Head CT was negative. Scalp laceration was stapled. Patient has been feeling well, but her this morning noted that she was saying things that did not make sense. She told him that he had orellana on his suit jacket, although he does not. She called their breakfast eggs fish. At the grocery store she asked why the grocery store sign was in the paper, and he said that did not make sense. He was concerned she has a concussion and brought her in. She has had episodes of confusion in the past, but he states this is worse than anything he is seen prior. Patient denies any headache, vision changes, chest pain, shortness of breath, numbness or tingling in the arms or legs, weakness, trouble speaking, or other complaints. She is on Xarelto for atrial fibrillation, and she has not taken a dose yesterday or today because of the head injury. Physical Examination: Vital signs: afebrile, hemodynamically stable, no hypoxia on room air General: well nourished, well developed, in no distress Skin: warm, dry, no rash, no pallor HEENT: normocephalic, well-healing laceration to the posterior scalp with [address]; PERRL, EOMI, moist mucous membranes, no facial droop but neck is supple and nontender Cardiovascular: irregular rate and rhythm without murmurs, legs are wrapped in compression bandages, intact peripheral perfusion Respiratory: No increased work of breathing, lungs are clear to auscultation bilaterally, no rales, rhonchi or wheezing Abdominal: Abdomen is soft, nontender with normoactive bowel sounds, no guarding or rebound, no masses MSK: Moves all extremities, no deformities, normal strength Neuro: Awake and alert, oriented ?4. No facial droop, sensation and motor function intact and symmetric H equals 0. Speech is fluent, patient is able to describe a picture appropriately, name objects, and read sentences without any deficits Test Results: Abnormal Lab Results 12/01/17 12/01/17 12/01/17 09:40 09:40 09:40 WBC 14.2 H RBC 4.70 Hgb 10.2 L Hct 33.0 L MCV 70.2 L MCH 21.7 L MCHC 30.9 L RDW 21.9 H RDW Differential 54.7 H Plt Count 284 MPV 9.6 Immature Gran % (Auto) 0.300 Neut % (Auto) 79.1 H Lymph % (Auto) 10.1 L [place] % (Auto) 9.7 Eos % (Auto) 0.7 Baso % (Auto) 0.1 Absolute Neuts (auto) 11.2 H Absolute Lymphs (auto) 1.44 Total Counted Not Reportable Platelet Estimate ADEQUATE Polychromasia RARE Hypochromasia 2+ Anisocytosis 2+ Microcytosis 1+ Target Cells RARE PT 27.2 H INR 2.5 APTT 63.2 H Sodium 138 Potassium 4.9 Chloride 106 Carbon Dioxide 25.0 Anion Gap 7 BUN 59 H Creatinine 2.32 H Estim Creat Clear Calc 18.40 Est GFR (MDRD) Af Amer 27 L Est GFR (MDRD) Non-Af 22 L BUN/Creatinine Ratio 25.4 H Glucose 92 Calcium 9.0 Total Bilirubin 0.70 AST 14 L ALT 13 Alkaline Phosphatase 97 Troponin I < 0.02 Total Protein 6.9 Albumin 2.1 L Globulin 4.8 H Albumin/Globulin Ratio 0.4 L Urine Color Urine Clarity Urine pH Ur Specific [place] Urine Protein Urine Glucose (UA) Urine Ketones Urine Occult Blood Urine Nitrite Urine Bilirubin Urine Urobilinogen Ur Leukocyte Esterase Urine RBC Urine WBC Ur Squamous Epith Cells Urine Bacteria Urine Mucus 12/01/17 11:00 WBC RBC Hgb Hct MCV MCH MCHC RDW RDW Differential Plt Count MPV Immature Gran % (Auto) Neut % (Auto) Lymph % (Auto) [place] % (Auto) Eos % (Auto) Baso % (Auto) Absolute Neuts (auto) Absolute Lymphs (auto) Total Counted Platelet Estimate Polychromasia Hypochromasia Anisocytosis Microcytosis Target Cells PT INR APTT Sodium Potassium Chloride Carbon Dioxide Anion Gap BUN Creatinine Estim Creat Clear Calc Est GFR (MDRD) Af Amer Est GFR (MDRD) Non-Af BUN/Creatinine Ratio Glucose Calcium Total Bilirubin AST ALT Alkaline Phosphatase Troponin I Total Protein Albumin Globulin Albumin/Globulin Ratio Urine Color Yellow Urine Clarity Sl. Cloudy Urine pH 5.0 Ur Specific [place] 1.015 Urine Protein 30 H Urine Glucose (UA) Normal Urine Ketones Negative Urine Occult Blood 250 H Urine Nitrite Negative Urine Bilirubin 1 H Urine Urobilinogen Normal Ur Leukocyte Esterase 500 H Urine RBC 5-10 SEEN Urine WBC 5-10 SEEN Ur Squamous Epith Cells 0-5 SEEN Urine Bacteria 2+ Urine Mucus RARE Emergency Department Course and Treatment: Repeat CT of the head showed no delayed intracranial hemorrhage. Patient had a normal neuro exam and at no point showed any signs of confused speech or aphasia. Workup for alternate cause of her episodic confusion was performed. EKG showed A. fib with no ST changes but diffuse T-wave inversion, including new inversion in 1 and aVL. This was discussed with cardiology contract driver who did not think this new inversion was cardiac in nature but rather result of patient's recent head trauma. No further workup necessary for this. Chest x-ray showed no acute process. Labs showed a mild leukocytosis of 14.2. She had mild elevation in her creatinine that was above her baseline, but compared to labs from a few days ago creatinine was greatly improved. The BUN to creatinine ratio was consistent with prerenal cause, likely dehydration, and patient was given IV fluids for this. Patient's other labs were at baseline. Patient did have mild urinary tract infection on urinalysis. Because of this with the leukocytosis, she will be treated for UTI with low dose ciprofloxacin for 3 days. No other option was available as patient has multiple allergies. No noted interactions with Cipro recent patient's medication list were appreciated. Patient was discharged home neuro intact with no deficits. She will follow up with her doctor or return if any concerns. Treatment Plan: [] Disposition: [] Impression: 1. Subsequent visit for concussion 2. Urinary tract infection 3. Mild dehydration This note was generated with [employer] dictation software. It may contain incorrect words, spelling, and punctuation that were not noted in review of the chart prior to signing ED Disposition - Plan for ED Patient: Disposition: Home or Assisted Living Chief Complaint: Confusion Instructions: ED Concussion, ED UTI Cystitis Female Prescriptions: Ciprofloxacin [Cipro] 250 mg PO BID #6 tab Referrals: Mira Almonte DO [STAFF PHYSICIAN] - Keep [facility] appointment Aaron Tidwell MD [Primary Care Provider] - 3-5 Days if not improving Additional Instructions: Your workup today showed no bleeding in the brain. Your confusion this morning may be due to a concussion from your fall 3 days ago. Please follow-up as you were previously instructed after the fall to have the peña removed. You also have a mild bladder infection on your workup. Please take the antibiotic as prescribed for 3 days. Please drink plenty of fluids, as your labs showed dehydration as well. You were given some IV fluids to help hydrate you today. Please keep your appointment with your kidney doctor next Monday as already scheduled. Any worsening of your condition or any new concerning symptoms, please return immediately to the emergency department for another evaluation.
--- NOTE | 2017-12-01 09:35 | RAD_ITS ---
STUDY: X-RAY CHEST REASON FOR EXAM: Female, 72 years old. Confusion following a recent fall. TECHNIQUE: Single AP portable view of the chest. COMPARISON: Comparison is made with prior study dated September 26, 2017. FINDINGS: The lungs are clear and expanded. There is no demonstrated pleural abnormality. There is moderate cardiac enlargement. Prominence of the left aortopulmonary window. This is unchanged. This may represent either prominence of the left pulmonary artery or enlargement of the left atrial appendage. This is unchanged. Normal mediastinum and kenn. Normal visualized pulmonary arteries. Normal visualized aortic arch and descending thoracic aorta. Normal visualized thoracic spine. There is degenerative osteoarthritis of the bilateral shoulders. There is no demonstrated abnormality of the visualized soft tissue structures of the upper abdomen. RAD/Chest 1 View (Portable) IMPRESSION: Stable examination. Electronically Signed: Carlos Cai MD at 10:06 EST Tel [phone], Service support ,
[2017-12-01 09:52] LABS: Absolute Lymphocyte Count 1.44 X10^3/ul (0.83-4.51); Absolute Neutrophil Count 11.2 X10^3/uL (2.0-7.7); Basophil# 0.02 X10^3/uL; Basophil% 0.1 % (0-1); Eosinophils% 0.7 % (0-5); Hemoglobin 10.2 g/dl (12.0-15.0); Lymphocyte # 1.44 X10^3/ul (4.0); Lymphocyte % 10.1 % (19-41); Mean Corp Hgb Conc 30.9 g/gl (32-36); Mean Corpuscular Hgb 21.7 pg (27.0-32.0); Mean Corpuscular Volume 70.2 fL (81-99); Mean Platelet Vol. 9.6 fl (6.2-12.0); Monocyte# 1.37 X10^3/uL; Monocyte% 9.7 % (0-10); Neutrophil # 11.22 X10^3/uL (2.7-7.7); Neutrophil % 79.1 % (47-70); Platelet Count 284 K/mm3 (150-450); RBC Distribution Width CV 21.9 % (11.6-14.6); RBC Distribution Width SD 54.7 fl (35.1-43.9); White Blood Count 14.2 K/mm3 (4.4-11.0)
[2017-12-01 09:53] LABS: Differential Indicated SCAN CRITERIA MET; POSITIVE COUNT NO; POSITIVE DIFFERENTIAL NO; POSITIVE MORPHOLOGY YES
[2017-12-01 10:03] LABS: International Normalized Ratio 2.5; Prothrombin Time (Protime)PT. 27.2 SECONDS (11.7-14.9)
[2017-12-01 10:05] LABS: Partial Thromboplast Time 63.2 Seconds (24.1-36.2)
[2017-12-01 10:07] LABS: ALB/GLOB Ratio 0.4 RATIO (0.9-2.4); AST(SGOT) 14 U/L (15-37); Alanine Aminotransfer ALT/SGPT 13 U/L (13-56); Albumin, Serum 2.1 g/dL (3.2-5.0); Alkaline Phosphatase 97 U/L (45-117); Anion Gap 7 (5-15); BUN 59 mg/dL (7-18); BUN/Creat Ratio 25.4 RATIO (10-20); Chloride 106 mmol/L (98-107); Creatinine, Serum 2.32 mg/dL (0.55-1.02); EST Glomerular Filtration Rate 22 mL/min (>60); Est Glom Filt Rate - Afr Amer 27 mL/min (>60); Globulin 4.8 g/dL (2.2-4.2); Glucose 92 mg/dL (74-106); Potassium 4.9 mmol/L (3.5-5.1); Protein, Total 6.9 g/dL (6.4-8.2); Sodium Level 138 mmol/L (136-145)
[2017-12-01 10:12] LABS: Anisocytosis 2+; Hypochromasia 2+; Microcytosis 1+; Platelet Estimate ADEQUATE (ADEQ); Polychromasia RARE; Target Cells RARE
[2017-12-01 11:05] VITALS: BP 97/61; PULSE 96; RESP 18; O2SAT 100
[2017-12-01 11:10] LABS: Color, Urine Yellow (Yellow); Glucose, Dipstick Normal (Normal); Ketone-Dipstick Negative (Negative); Leukocyte Esterase-Dipstick 500 /ul (Negative); Nitrite-Dipstick Negative (Negative); Occult Blood-Urine 250 /ul (Negative); Protein-Dipstick 30 mg/dl (Negative); Specific Gravity, Urine 1.015 (1.002-1.030); Urine Clarity Sl. Cloudy (Clear); Urine Urobilinogen Normal (Normal)
[2017-12-01 11:13] LABS: Urine Bilirubin Dipstick 1 mg/dL (Negative)
[2017-12-01 11:30] LABS: Bacteria 2+ /hpf (None Seen); Mucous, Urine RARE /hpf (<or=2+); Red Blood Cells-Urine 5-10 SEEN /hpf (0-5); Squamous Epithelial Cells - UA 0-5 SEEN /hpf (5-10); White Blood Cells 5-10 SEEN /hpf (0-5)
--- NOTE | 2017-12-01 12:36 | ED.DEP ---
ED Disposition - Plan for ED Patient: Disposition: Home or Assisted Living Chief Complaint: Confusion Instructions: ED UTI Cystitis Female, ED Concussion Prescriptions: Ciprofloxacin [Cipro] 250 mg PO BID #6 tab Referrals: Aaron Tidwell MD [Primary Care Provider] - 3-5 Days if not improving Mira Almonte DO [STAFF PHYSICIAN] - Keep [facility] appointment Additional Instructions: Your workup today showed no bleeding in the brain. Your confusion this morning may be due to a concussion from your fall 3 days ago. Please follow-up as you were previously instructed after the fall to have the peña removed. You also have a mild bladder infection on your workup. Please take the antibiotic as prescribed for 3 days. Please drink plenty of fluids, as your labs showed dehydration as well. You were given some IV fluids to help hydrate you today. Please keep your appointment with your kidney doctor next Monday as already scheduled. Any worsening of your condition or any new concerning symptoms, please return immediately to the emergency department for another evaluation.
[2017-12-01 13:02] VITALS: BP 106/62; PULSE 80; RESP 16
--- NOTE | 2017-12-01 14:11 | ED.RN ---
Patient able to obtain enough urine for culture. D/c instructions given. Ambulatory out of ED with slow and steady gait.
== END 2017-12-01 14:12 | disposition home or self-care (01) ==
PROVIDERS: Emergency Provider Emergency Medicine; Family Provider Internal Medicine; PCP Internal Medicine
DX: S06.0X9D Concussion with loss of consciousness of unspecified duration, subsequent encounter (principal); W19.XXXD Unspecified fall, subsequent encounter; N39.0 Urinary tract infection, site not specified; E86.0 Dehydration; I48.91 Unspecified atrial fibrillation; Z79.01 Long term (current) use of anticoagulants
CPT/HCPCS: 70450; 71045; 80053; 81001; 84484; 85025; 85610; 85730; 87077; 87086; 87088; 87186; 93005; 99283; J7040

== ENCOUNTER 2017-12-04 05:38 | Emergency (ER) | payer MEDICARE, SELFPAY ==
[2017-12-04 05:39] VITALS: BP 125/85; PULSE 78; RESP 20; TEMP 36.6; O2SAT 95; BMI 34.5
--- NOTE | 2017-12-04 06:00 | RAD_ITS ---
STUDY: X-RAY CHEST REASON FOR EXAM: Female, 72 years old. Patient lost balance while trying to sit on a couch. Bruising and pain. TECHNIQUE: Frontal and lateral views of the chest. COMPARISON: 12/01/2017. FINDINGS: The lungs are clear and expanded. There is no demonstrated pleural abnormality. There is mild cardiac enlargement. Normal mediastinum and kenn. Normal visualized pulmonary arteries. There is atherosclerotic calcification of the aortic arch with tortuosity. There are multilevel degenerative changes of the visualized thoracic spine. There is degenerative osteoarthritis of the bilateral shoulders. There is no demonstrated abnormality of the visualized soft tissue structures of the upper abdomen. RAD/Chest PA and Lateral IMPRESSION: Cardiomegaly. No evidence for acute cardiopulmonary pathology. Electronically Signed: Curtis Harris MD at 7:04 EDT , Service support ,
--- NOTE | 2017-12-04 06:01 | RAD_ITS ---
STUDY: X-RAY - LUMBAR SPINE REASON FOR EXAM: Female, 72 years old. Patient lost balance whilst trying to sit on a couch. Bruising to the right flank and left shoulder. Pain in the mid to lower back.. TECHNIQUE: 4 view(s) of the lumbar spine were obtained. COMPARISON: CT L-spine 09/11/2017. FINDINGS: Normal lumbar lordosis. There is no substantial scoliosis. There is grade 1 anterolisthesis at the L3-4 and L4-5 levels, which is chronic, on a degenerative basis. Normal vertebral bodies. There is multilevel spondylosis.. There is multi-level degenerative disc disease with multi-level disc space narrowing. There are degenerative changes of the facet joints at multiple levels in the mid and lower spine. The soft tissue structures are unremarkable. RAD/Lumbar Spine 2 or 3 Views IMPRESSION: Degenerative changes of the spine, as detailed above. No demonstrated fracture. Electronically Signed: Curtis Harris MD at 6:58 EDT , Service support ,
--- NOTE | 2017-12-04 06:02 | ED.VISSUMM ---
- ER Visit Summary Date of Service: 12/04/17 Chief Complaint: Fall at home History of Present Illness: The patient is a 72 F is on anticoagulation. Family states that she is on Xarelto. She is a history of diet-controlled diabetes, CHF, renal insufficiency and A. fib. She was walking from the kitchen with food went to sit on the couch and lost her balance and hit her back against a chair. She denies hitting her head. She denies any headache. She denies any neck pain. She has had other recent falls is been evaluated in the ER. She has had recent CAT scans due to hitting her head. And a scalp laceration that was repaired with peña. She still has the peña in at this time. Today she is complaining of lower back and right posterior rib cage pain. She had no LOC. She does live at home with her . Physical Examination: Elderly female no acute distress. Vital signs are stable and afebrile. Pulse ox 95% on room air no signs of hypoxia. She does not look septic or toxic. HEENT exam pupils are round and reactive light. No signs of facial trauma. There is no scalp hematoma or tenderness. Neck is nontender. C-spine is nontender. Lungs are clear to auscultation bilaterally. Heart is irregularly irregular consistent with A. fib rate in the 80s. She has a history of A. fib. Anterior chest wall is nontender. Abdomen is soft and nontender. Normal bowel sounds no peritoneal signs. Pelvic girdle is intact. She is moving all 4 extremities. They are neurovascularly intact. She has chronic edema both lower extremities with wraps on. She has chronic right knee pain from arthritis but no deformity she is able to flex extend the right knee. Neither hip is tender to palpation. There is no shortening or rotation. She can flex and extend both hips. Her back exam she has tenderness along the upper lumbar spine and also right posterior rib cage. There is some bruising. Also a mild bruise on her left forearm which is old. Neurologically she is awake and alert. She has no focal deficits. She is able to answer all questions. She is moving all 4 extremities. Test Results: Chest x-ray shows chronic changes no acute processes no obvious rib fractures. LS spine film shows degenerative joint space narrowing but no compression fractures. I went over the films with the patient and her family members. On repeat exam at 06 58 she started to have some bruising to her mid to lower back on the sides where she hit the chair. Consistent with contusions. Otherwise exam is unchanged. She is awake and alert. Again no signs of head injury. Where her prior peña were placed they look good and are healing appropriately. Emergency Department Course and Treatment: Patient has had recent labs. She also has recently had an elevated INR. I discussed this with the family but they states she has been changed from Coumadin to Xarelto recently. She did not hit her head tonight I do not think she needs any CAT scan tonight. She has had 2 recently. We will obtain x-rays of her chest and lumbar spine. She declines anything for pain at this time. Treatment Plan: Patient be discharged to home. Ice to her back to help prevent some of the bruising. She is to expect bruising which is already starting to occur. He were instructed that she could have a nondisplaced rib fractures not seen on x-ray but the x-ray just showed chronic changes. Disposition: dc Impression: Acute fall Right posterior rib cage contusion Back contusion Anticoagulated on Xarelto This note was generated with [employer] dictation software. It may contain incorrect words, spelling, and punctuation that were not noted in review of the chart prior to signing ED Disposition - Plan for ED Patient: Chief Complaint: Fall Referrals: Aaron Tidwell MD [Primary Care Provider] -
--- NOTE | 2017-12-04 07:02 | ED.DEP ---
ED Disposition - Plan for ED Patient: Disposition: Home or Assisted Living Chief Complaint: Fall Instructions: ED Contusion Back Referrals: Aaron Tidwell MD [Primary Care Provider] - As Needed Additional Instructions: Ice to any sore areas on your back to help prevent bruising. Follow-up your primary care physician as needed. Return to the ER if feeling a lot worse. Expect to have bruising on your back and to be sore for the next week.
[2017-12-04 07:15] VITALS: RESP 16
== END 2017-12-04 07:16 | disposition home or self-care (01) ==
PROVIDERS: Emergency Provider Emergency Medicine; Family Provider Internal Medicine; PCP Internal Medicine
DX: S20.211A Contusion of right front wall of thorax, initial encounter (principal); S30.0XXA Contusion of lower back and pelvis, initial encounter; W18.00XA Striking against unspecified object with subsequent fall, initial encounter; Y93.01 Activity, walking, marching and hiking; Y92.000 Kitchen of unspecified non-institutional (private) residence as the place of occurrence of the external cause; Y99.9 Unspecified external cause status; E11.9 Type 2 diabetes mellitus without complications; I50.9 Heart failure, unspecified; I48.91 Unspecified atrial fibrillation; Z79.01 Long term (current) use of anticoagulants; I10 Essential (primary) hypertension
CPT/HCPCS: 71046; 72100; 99283

== ENCOUNTER 2017-12-06 10:13 | Outpatient (RCR) | payer MEDICARE, SELFPAY ==
[2017-11-23 00:46] VITALS: BP 120/69; PULSE 115; RESP 18; TEMP 36.6; BMI 35.4
[2017-12-06 10:58] VITALS: BP 124/63; PULSE 111; RESP 16; TEMP 36.2; BMI 35.4
--- NOTE | 2017-12-06 12:13 | PCM.WC.PN ---
(1) Right leg pain Status: Chronic Current Visit: Yes Code(s): M79.604 - Pain in right leg (2) Left leg pain Status: Chronic Current Visit: Yes Code(s): M79.605 - Pain in left leg (3) Calcinosis Status: Chronic Current Visit: Yes Code(s): E83.59 - Other disorders of calcium metabolism (4) Edema, lower extremity Status: Chronic Current Visit: Yes Code(s): R60.0 - Localized edema (5) Venous stasis ulcer of left lower leg with edema of left lower leg Status: Chronic Current Visit: Yes Code(s): I83.892 - Varicose veins of left lower extremity with other complications; I83.028 - Varicose veins of left lower extremity with ulcer other part of lower leg; R60.9 - Edema, unspecified (6) Venous stasis ulcer of right lower leg with edema of right lower leg Status: Chronic Current Visit: Yes Code(s): I83.891 - Varicose veins of right lower extremity with other complications; I83.018 - Varicose veins of right lower extremity with ulcer other part of lower leg; R60.9 - Edema, unspecified Type of Wound Date of Service: 12/06/17 Chief Complaint: Wounds/ulcers of b/l lower legs History of Wound: Di is a 72 yo female patient of Dr. Smith that presents for evaluation and treatment of lower extremity ulcers that have been present since June. Her wounds are very painful. She has been changing the dressings every day with Santyl and denies odor or redness. She elects to proceed with conservative care and not with surgical intervention at this time. She is with her daughter today. She denies fever, chill, nausea, vomiting. Unfortunately Santyl medication is no longer covered in the cost is too much for this patient to continue. Progress of Wound: Stable - Physical Exam Vital Signs Temp Pulse Resp BP 97.1 F L 111 H 16 124/63 H 12/06/17 10:58 12/06/17 10:58 12/06/17 10:58 12/06/17 10:58 General: Alert, Oriented x3, Cooperative Extremities: No cyanosis, Capillary Refill Less than 3 Seconds, No Calf Tenderness - Negative Layton sign bilateral, Diminished Peripheral Pulses, Edema, Tenderness - Severe pain with wound manipulation bilateral, - - Multiple varicosities bilateral lower extremities and telangiectasias Skin: Ulcer/ Wound - Fibrous and eschar base wound with scant granulation tissue. No purulence, no erythema, streaking, no odor. The fibrous tissue is well adhered. Her skin is atrophic and without hair. Wound Measurements and Assessment WC - Nurse 1 - General Ulcer Measurement Start: 12/06/17 10:58 Freq: Status: Active Protocol: Activity Type Activity Date Activity User E-Sign Co-Sign Detail Recorded Client Recorded Date Recorded By Document 12/06/17 10:58 [facility] [id number] 12/06/17 11:18 [facility] 12/06/17 10:58 Wound Center Nurse 1 [Ulcer Assessment] #2 Left calf -Combined with other wound No -Current Size (cm) - Length 12.6 -Current Size (cm) - Width 12 -Current Size (cm) - Depth 0.1 -Total Square Cm 151.2 -Photo Taken No -Epithelialization None Present -Tunneling No -Undermining/Tunneling No -Exudate Amt Medium (34-66%) -Exudate Type Serosanguineous -Wound Margin Distinct, Outline Attached -Granulation Amt None Present (0 %) -Slough/Fibrin Yes -Necrosis Amt Large (67-100%) -Necrotic Tissue Type Eschar -Structure Exposed N/A -Texture (Gabriella-wound Skin Appearance) Scarring -Moisture (Gabriella-wound Skin Appearance Assessed ) -Color (Gabriella-wound Skin Appearance) Erythema -Temperature (Gabriella-wound Skin No Abnormality Appearance) (Pt Warm) -Tenderness on Palpation (Gabriella-wound Yes Skin Appearance) -Ulcer Cleansing Wound Cleanser -Foul Odor after Cleansing No -Anesthetic Used 4% Lidocaine Solution #1 RIGHT MEDIAL LE CLUSTER -Combined with other wound No -Current Size (cm) - Length 14.7 -Current Size (cm) - Width 28.5 -Current Size (cm) - Depth 0.1 -Total Square Cm 418.95 -Photo Taken No -Epithelialization None Present -Tunneling No -Undermining/Tunneling No -Exudate Amt Medium (34-66%) -Exudate Type Serosanguineous -Wound Margin Distinct, Outline Attached -Granulation Amt None Present (0 %) -Slough/Fibrin Yes -Necrosis Amt Large (67-100%) -Necrotic Tissue Type Eschar -Structure Exposed N/A -Texture (Gabriella-wound Skin Appearance) Scarring -Moisture (Gabriella-wound Skin Appearance Assessed ) -Color (Gabriella-wound Skin Appearance) Erythema -Temperature (Gabriella-wound Skin No Abnormality Appearance) (Pt Warm) -Tenderness on Palpation (Gabriella-wound Yes Skin Appearance) -Ulcer Cleansing Wound Cleanser -Foul Odor after Cleansing No -Anesthetic Used 4% Lidocaine Solution [Edema Assessment] -Lower Limb Edema Present Yes -Right Calf (cm) 33 -Right Ankle (cm) 21.7 -Left Calf (cm) 33.1 -Left Ankle (cm) 21.7 WC - Nurse 2 - General Ulcer CM Notes Start: 12/06/17 10:58 Freq: Status: Active Protocol: Activity Type Activity Date Activity User E-Sign Co-Sign Detail Recorded Client Recorded Date Recorded By Document 12/06/17 11:30 [id number] 12/06/17 11:43 12/06/17 11:30 Wound Center Nurse 2 [Procedure/Treatment] #2 Left calf -Time 11:30 -Correct Patient Yes -Correct Side, Site, Position Yes -Correct Procedure Yes -Procedure Performed Yes -Post Debridement Size (cm) - Length 12.6 -Post Debridement Size (cm) - Width 12.0 -Post Debridement Size (cm) - Depth 0.1 -Total Square Cm 151.20 -Wound/Ulcer Outcome Not Healed -Ulcer Cleansing Rinsed/ Irrigated with Saline -Foul Odor after Cleansing No -Bioengineered Tissue No -Topical Lidocaine (%) 4 -Bleeding Controlled with NA -Treatment Response Procedure Tolerated Well #1 RIGHT MEDIAL LE CLUSTER -Time 11:31 -Correct Patient Yes -Correct Side, Site, Position Yes -Correct Procedure Yes -Procedure Performed Yes -Post Debridement Size (cm) - Length 14.7 -Post Debridement Size (cm) - Width 28.5 -Post Debridement Size (cm) - Depth 0.1 -Total Square Cm 418.95 -Wound/Ulcer Outcome Not Healed -Ulcer Cleansing Rinsed/ Irrigated with Saline -Foul Odor after Cleansing No -Bioengineered Tissue No -Topical Lidocaine (%) 4 -Bleeding Controlled with NA -Treatment Response Procedure Tolerated Well [See Physician Procedure note for Specifics] Pain Scale: 0-10 Numeric [Pain] -Is Patient Pain Free? Yes Musculoskeletal: Muscle Wasting, Tenderness Neurological: Sensory exam intact to light touch and pain Psych/Mental Status: Normal Affect, Appropriate Debridement Note Post-Debridement Measurements/Treatment WC - Nurse 2 - General Ulcer CM Notes Start: 12/06/17 10:58 Freq: Status: Active Protocol: Activity Type Activity Date Activity User E-Sign Co-Sign Detail Recorded Client Recorded Date Recorded By Document 12/06/17 11:30 TM [id number] 12/06/17 11:43 TM 12/06/17 11:30 Wound Center Nurse 2 #2 Left calf -Time 11:30 -Correct Patient Yes -Correct Side, Site, Position Yes -Correct Procedure Yes -Procedure Performed Yes -Post Debridement Size (cm) - Length 12.6 -Post Debridement Size (cm) - Width 12.0 -Post Debridement Size (cm) - Depth 0.1 -Total Square Cm 151.20 -Wound/Ulcer Outcome Not Healed -Ulcer Cleansing Rinsed/ Irrigated with Saline -Foul Odor after Cleansing No -Bioengineered Tissue No -Topical Lidocaine (%) 4 -Bleeding Controlled with NA -Treatment Response Procedure Tolerated Well #1 RIGHT MEDIAL LE CLUSTER -Time 11:31 -Correct Patient Yes -Correct Side, Site, Position Yes -Correct Procedure Yes -Procedure Performed Yes -Post Debridement Size (cm) - Length 14.7 -Post Debridement Size (cm) - Width 28.5 -Post Debridement Size (cm) - Depth 0.1 -Total Square Cm 418.95 -Wound/Ulcer Outcome Not Healed -Ulcer Cleansing Rinsed/ Irrigated with Saline -Foul Odor after Cleansing No -Bioengineered Tissue No -Topical Lidocaine (%) 4 -Bleeding Controlled with NA -Treatment Response Procedure Tolerated Well Pain Scale: 0-10 Numeric Is Patient Pain Free? Yes No debridement was completed today - Unable to tolerate Assessment/Plan Active Problems (Last Updated 10/11/17 @ 09:06 by Gosia Martinez) Right leg pain (Chronic) Left leg pain (Chronic) Calcinosis (Chronic) Edema, lower extremity (Chronic) Venous stasis ulcer of left lower leg with edema of left lower leg (Chronic) Venous stasis ulcer of right lower leg with edema of right lower leg (Chronic) Assessment: venous ulcers of b/l LE due to venous insufficiency. Delayed healing. venous insufficiency. Malnutrition suspected. Lower extremity pain. Contributing diagnoses also includes calcinosis. Multiple comorbidities noted. On chronic anticoagulation medication; recently changed from Xarelto to Coumadin Plan: Di's wounds were evaluated she was not able to tolerate any type of debridement today. She is demonstrating significant delays in healing and is unable to tolerate debridements due to pain. She defers surgical intervention such as an operating room debridement application of advanced wound care product. She is doing well with daily Santyl changes. This is no longer a covered medication at this time and they are not able to pay at cost expense for this product. Therefore, I recommend hydrogel with collagen and Adaptic application every other day. Orders were provided. Labs reviewed which included ESR and CRP were elevated, HASEEB negative, Calcium WNL, PTH was low. She is also know to Dr. Pelaez for evaluation of her arterial Doppler exam which appeared to have distal perfusion. Continue to follow up with Dr. Carbajal as scheduled for pain management. Encouraged her to elevated legs as much as possible, avoid idle sitting or standing, increase activity, as well as weight management. We reviewed the basics of wound healing again today. It was reiterated that her medical comorbidities do complicate her course and her treatment plan will be a staged progressive plan that is subject to change as the wound progresses and changes. Upon decreased eschar and fibrous tissue additional advanced wound care products will be considered when appropriate. This is not appropriate at this time. To return to clinic in 1 week. She is to call if increased drainage or changes in wounds or if the patient or her daughter has additional concerns or questions. The patient as well as her daughter very frustrated with the amount of pain she is enduring and lack of insurance coverage for the recommended medications. She understands we are working diligently to optimize her best care plan. To return to clinic in 1 week. I will review with them the palliative care plan as an additional option and she demonstrates continued delays in healing and does not want to proceed forward with the other recommendations.
== END 2017-12-23 23:59 ==
LOC: WC 10:13
PROVIDERS: Family Provider Internal Medicine; PCP Internal Medicine; Visit Provider Podiatrist
DX: I83.028 Varicose veins of left lower extremity with ulcer other part of lower leg (principal); I83.018 Varicose veins of right lower extremity with ulcer other part of lower leg; L97.819 Non-pressure chronic ulcer of other part of right lower leg with unspecified severity; L97.829 Non-pressure chronic ulcer of other part of left lower leg with unspecified severity; R60.0 Localized edema; E83.59 Other disorders of calcium metabolism; M79.604 Pain in right leg; M79.605 Pain in left leg; Z79.01 Long term (current) use of anticoagulants
CPT/HCPCS: 99213; 99214; G0463

== ENCOUNTER 2017-12-07 06:05 | Inpatient (IN) | payer MEDICARE, SELFPAY ==
[2017-12-07] VITALS (22 sets, daily range): BP systolic 101–135; BP diastolic 42–106; PULSE 68–125; RESP 14–24; TEMP 36.2–36.9; O2SAT 93–100; BMI 33.3
--- NOTE | 2017-12-07 06:27 | EKG12_ITS ---
Test Reason : Blood Pressure : / mmHG Vent. Rate : 117 BPM Atrial Rate : 122 BPM P-R Int : 000 ms QRS Dur : 086 ms QT Int : 292 ms P-R-T Axes : 000 073 247 degrees QTc Int : [address] & T wave abnormality, consider inferolateral ischemia Abnormal ECG Confirmed by ALYSA FARR ([id number]), market editor CARLENE NELSON ([id number]) on 12/11/2017 1:49:21 PM Referred By: Meche Delvalle Confirmed By:ALYSA FARR
--- NOTE | 2017-12-07 06:27 | RAD_ITS ---
STUDY: X-RAY CHEST REASON FOR EXAM: Female, 72 years old. Shortness of breath TECHNIQUE: A single frontal view of the chest was obtained. COMPARISON: December 04, 2017 FINDINGS: The lungs are underaerated. There are minimal increased markings in both lung bases. There is no demonstrated pleural abnormality. There is mild enlargement of the cardiac silhouette. The mediastinum and hilar regions are unremarkable. There is prominence of the main pulmonary artery as seen on a prior CT of the chest, consistent with pulmonary artery hypertension. There is atherosclerotic calcification of the thoracic aorta. There are diffuse degenerative changes of the visualized spine. There are degenerative changes in both shoulders. Cholecystectomy clips are present. RAD/Chest 1 View (Portable) IMPRESSION: No acute cardiopulmonary abnormalities or changes. There is stable mild enlargement of the cardiac silhouette without pulmonary edema or pleural effusion. There is minimal bibasilar atelectasis due to low volume inspiration. Electronically Signed: Christen Gold MD at 7:00 EDT Tel Direct: [phone], Service support ,
--- NOTE | 2017-12-07 06:51 | ED.VISSUMM ---
- ER Visit Summary Date of Service: 12/07/17 Chief Complaint: Generalized weakness History of Present Illness: The patient is a 72 F presenting with generalized weakness and frequent falls. Patient states she has fallen 2 times in the past week. Today she felt weak and felt like she was going to fall. Her caught her and lowered her to the ground. She has required either cane or assistance walking over the past 2 days. No injury today. She also notes that she has had rectal bleeding for the past week. She denies syncope. Denies chest pain or shortness of breath. Denies abdominal pain. She is on Xarelto. Physical Examination: Vitals are stable. Patient is afebrile. Alert no acute distress. HEENT exam is unremarkable. Neck is supple. Lungs are clear and equal bilaterally. Heart is irregularly irregular Abdomen is soft nontender nondistended. No guarding or rebound Rectal: Maroon colored stool Extremities are unremarkable. Skin is warm and dry. No focal neurologic deficit. Remainder of exam is unremarkable. Emergency Department Course and Treatment: IV is placed. EKG shows A. fib rate of 117. Labs were drawn. Patient will be checked out to the oncoming daytime physician. Disposition: Pending Impression: Generalized weakness, GI bleed on Xarelto This note was generated with [employer] dictation software. It may contain incorrect words, spelling, and punctuation that were not noted in review of the chart prior to signing ED Disposition - Plan for ED Patient: Chief Complaint: Weakness Referrals: Aaron Tidwell MD [Primary Care Provider] -
[2017-12-07 08:07] LABS: Prothrombin Time (Protime)PT. 68.1 SECONDS (11.7-14.9)
[2017-12-07 08:08] LABS: Partial Thromboplast Time 91.5 Seconds (24.1-36.2)
[2017-12-07 08:11] LABS: Anion Gap 10 (5-15); BUN 33 mg/dL (7-18); BUN/Creat Ratio 21.6 RATIO (10-20); Calcium,Total 8.8 mg/dL (8.5-10.1); Chloride 108 mmol/L (98-107); Creatinine, Serum 1.53 mg/dL (0.55-1.02); EST Glomerular Filtration Rate 36 mL/min (>60); Est Glom Filt Rate - Afr Amer 43 mL/min (>60); Estimated Creatinine Clearance 29.12 ml/min; Glucose 108 mg/dL (74-106); Potassium 5.3 mmol/L (3.5-5.1); Sodium Level 135 mmol/L (136-145)
[2017-12-07 08:17] LABS: Absolute Lymphocyte Count 1.04 X10^3/ul (0.83-4.51); Absolute Neutrophil Count 10.5 X10^3/uL (2.0-7.7); Basophil# 0.02 X10^3/uL; Basophil% 0.2 % (0-1); Eosinophil# 0.08 X10^3/uL; Eosinophils% 0.6 % (0-5); Hematocrit 28.1 % (37-47); Hemoglobin 8.6 g/dl (12.0-15.0); Lymphocyte # 1.04 X10^3/ul (4.0); Lymphocyte % 8.3 % (19-41); Mean Corp Hgb Conc 30.6 g/gl (32-36); Mean Corpuscular Hgb 21.7 pg (27.0-32.0); Mean Corpuscular Volume 70.8 fL (81-99); Mean Platelet Vol. 9.8 fl (6.2-12.0); Monocyte# 0.87 X10^3/uL; Monocyte% 6.9 % (0-10); Neutrophil # 10.47 X10^3/uL (2.7-7.7); Neutrophil % 83.6 % (47-70); Platelet Count 275 K/mm3 (150-450); RBC Distribution Width SD 57.9 fl (35.1-43.9); Red Blood Count 3.97 M/mm3 (4.2-5.4); White Blood Count 12.5 K/mm3 (4.4-11.0)
[2017-12-07 08:21] LABS: Differential Indicated SCAN CRITERIA MET; Lactic Acid 1.4 mmol/L (0.4-2.0); POSITIVE COUNT NO; POSITIVE DIFFERENTIAL NO; POSITIVE MORPHOLOGY YES
--- NOTE | 2017-12-07 09:21 | ED.RN ---
[facility] INITIATED PER ORDER, HOWEVER PERIPHERAL IV NO LONGER PATENT. IV THERAPY CALLED TO INITIATE NEW PERIPHERAL LINE.
--- NOTE | 2017-12-07 09:33 | PCM.HP.STD ---
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 (10) Chronic atrial fibrillation Status: Chronic Comment: DCCV 10/10, 10/2015; MAZE procedure @ [facility] 01/12/2017; (11) Status post placement of implantable loop recorder Status: Chronic (12) History of maze procedure Status: Chronic (13) Other secondary pulmonary hypertension Status: Chronic (14) Chronic diastolic (congestive) heart failure Status: Chronic (15) GI bleeding Status: Resolved Qualifiers: GI bleed type/associated pathology: unspecified gastrointestinal hemorrhage type Qualified Code(s): K92.2 - Gastrointestinal hemorrhage, unspecified (16) Symptomatic anemia Status: Chronic (17) Hypertension Status: Chronic Qualifiers: (18) Type 2 diabetes mellitus Status: Chronic Qualifiers: (19) Lung nodule Status: Chronic (20) Coumadin-induced coagulopathy Status: Resolved (21) Chronic kidney disease, stage 3 Status: Chronic (22) Shortness of breath Status: Acute (23) Spinal stenosis of lumbar region with radiculopathy Status: Chronic (24) PAD (peripheral artery disease) Status: Chronic (25) Venous stasis ulcer of left lower leg with edema of left lower leg Status: Chronic (26) Venous stasis ulcer of right lower leg with edema of right lower leg Status: Chronic (27) Arthralgia Status: Chronic Qualifiers: (28) Myalgia Status: Chronic (29) Mass of soft tissue of left lower extremity Status: Chronic Comment: left inner upper thigh - ? calciphylaxis vs. erythema nodosum vs. dermatomyositis vs. panniculitis (30) Mass of soft tissue of right lower extremity Status: Chronic Comment: right inner upper thigh - ? calciphylaxis vs. erythema nodosum vs. dermatomyositis vs. panniculitis (31) Lower GI bleed Status: Acute (32) Chronic A. fib on Xarelto Status: Acute (33) Recurrent falls Status: Acute (34) Generalized weakness Status: Acute History of Present Illness Date of Admission: 12/07/17 Chief Complaint: Bright red rectal bleed for 1 week. generalized weakness for 3-4 weeks. The patient is a 72 year old F with multiple comorbidities including chronic heart failure with preserved EF, bilateral lower extremity pain and cellulitis, chronic A. fib on Xarelto came to ER with generalized weakness for 3-4 weeks and rectal bleed, bright red for last 1 week. Patient has been feeling progressively weak and had fall first 1 last week Monday for which she had a peña in the head in ER and then last 1 3 days ago on Monday for which she felt on the arm of the chair and has bruise on the right side of lower back. Patient did not had syncope. As per her daughter, she has been feeling weak and is not able to walk and using wheelchair which she normally does not use. Patient denies nausea vomiting or abdominal pain. She did not had recent EGD last 4-5 years but denies gastric ulcer/esophageal varices. Patient had colonoscopy by Dr. Alvarado. Patient has other significant comorbidities including peripheral arterial disease, venous stasis pulmonary hypertension and had a maze procedure. [] In ED, she was found to have hemoglobin 8.6 g percent, platelet count 2 75,000. INR was 8.0 and PTT 91.5. Patient's vital was noted, blood pressure 100/52, heart rate 94 pulse ox normal 96% on room air. 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) Chronic atrial fibrillation (Chronic) DCCV 10/10, 10/2015; MAZE procedure @ [facility] 01/12/2017; Status post placement of implantable loop recorder (Chronic) History of maze procedure (Chronic) Other secondary pulmonary hypertension (Chronic) Chronic diastolic (congestive) heart failure (Chronic) Symptomatic anemia (Chronic) Hypertension (Chronic) Type 2 diabetes mellitus (Chronic) Lung nodule (Chronic) Chronic kidney disease, stage 3 (Chronic) 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 calciphylaxis vs. erythema nodosum vs. dermatomyositis vs. panniculitis Mass of soft tissue of right lower extremity (Chronic) right inner upper thigh - ? calciphylaxis vs. erythema nodosum vs. dermatomyositis vs. panniculitis Allergies amlodipine besylate [From Norvasc] Allergy (Verified 12/07/17 06:11) Unknown Shortness of breath ceftriaxone Allergy (Verified 12/07/17 06:11) Rash doxazosin mesylate [From Cardura] Allergy (Verified 12/07/17 06:11) Unknown Pt doesn't remember doxycycline Allergy (Verified 12/07/17 06:11) Unknown Pt doesn't remember enalapril maleate [From Vasotec] Allergy (Verified 12/07/17 06:11) Rash enalaprilat dihydrate [From Vasotec] Allergy (Verified 12/07/17 06:11) Rash hydroxyzine HCl [From Vistaril] Allergy (Verified 12/07/17 06:11) Rash hydroxyzine pamoate [From Vistaril] Allergy (Verified 12/07/17 06:11) Rash meperidine HCl [From Demerol] Allergy (Verified 12/07/17 06:11) Rash Sulfa (Sulfonamide Antibiotics) Allergy (Verified 12/07/17 06:11) Hives sulfamethoxazole [From Bactrim] Allergy (Verified 12/04/17 05:42) Hives trimethoprim [From Bactrim] Allergy (Verified 12/04/17 05:42) Hives Home Medications: Ambulatory Orders Medication Instructions Recorded Metoprolol Tartrate [Lopressor 12.5 mg PO BID #90 tab 11/06/15 (beta alok)] Aspirin [Adult Low Dose Aspirin EC] 81 mg PO DAILY 03/03/17 Gabapentin [Neurontin] 100 mg PO 4X/DAY 09/29/17 Fluoxetine [Prozac] 20 mg PO DAILY 09/30/17 furosemide 40 mg tablet 20 mg PO QODAY tab 10/11/17 Lysine [l-Lysine] 1,000 mg PO DAILY 11/18/17 Morphine Sulfate [Morphine Sulfate 15 mg PO DAILY 11/18/17 ER] Rivaroxaban [Xarelto] 15 mg PO DAILY 11/18/17 potassium chloride ER 10 mEq 10 meq PO QDAY #30 tab 11/27/17 tablet,extended release Celecoxib [Celebrex] 200 mg PO DAILY 12/04/17 Hydrocodone/Acetaminophen 1 tab PO BID 12/04/17 [Hydrocodone-Acetamin 5-325 mg] Surgical History: cataract, cholecystectomy, hysterectomy, - Smoking Status: Never smoker - *Family History Maternal History Items: No pertinent history Paternal History Items: No pertinent history Review of Systems Constitutional: Reports: Malaise, Weakness, Fatigue HEENT: Denies: Head Aches, Sinus Congestion, Sinus Drainage Cardiovascular: Denies: Chest Pain, Palpitations Respiratory: Reports: Shortness of Breath. Denies: Cough, Shortness of breath at rest, Sputum production Gastrointestinal: Reports: Hematochezia. Denies: Abdominal Pain, Nausea, Vomiting Genitourinary: Denies: Dysuria Musculoskeletal: Reports: Joint Pain, Joint Tenderness, Muscle pain Skin: Denies: Rash, Wounds Neurological: Denies: Numbness, Tingling, Focal weakness Psychiatric: Denies: Anxiety, Depression, Homicidal Ideations, Suicidal Ideations Hematologic/ Lymphatic: Reports: Easy Bruising. Denies: Easy Bleeding VTE Information - Inpt Only VTE Present on Admission: No VTE Mechan Device Prophylaxis: SCD's VTE Pharm Prophylaxis ordered?: No Reason prophylaxis not ordered:: Medical Contraindication Patient Problems: Active and Suspected Problems (Last Updated 10/11/17 @ 09:06 by Gosia Martinez) Lower GI bleed (Acute) Chronic A. fib on Xarelto (Acute) Recurrent falls (Acute) Generalized weakness (Acute) - Physical Exam General: Alert, Oriented x3, Cooperative, Lethargic HEENT: Atraumatic, PERRLA, EOMI, Normocephalic Oral: Dry Mucosa Neck: Supple, No JVD, Negative Carotid Bruits Lungs: Clear to auscultation, No rhonchi, No wheeze, No rales, Diminished Cardiovascular: Regular rate, Normal S1, Normal S2, No murmurs, Irregular Rate Abdomen: Bowel Sounds Present, Soft, Non Tender, Non-Distended Extremities: Capillary Refill Less than 3 Seconds, Edema Skin: Skin Tear, - - Bilateral lower extremity varicose vein and covered with stockings. Musculoskeletal: Arthritic Changes, Muscle Wasting, Tenderness Neurological: Cranial nerves II-XII grossly intact Psych/Mental Status: Normal Affect, Appropriate Vital Signs Temp Pulse Resp BP Pulse Ox 98.4 F 100 16 115/67 98 12/07/17 06:06 12/07/17 09:13 12/07/17 09:13 12/07/17 09:13 12/07/17 09:13 Assessment/Plan Active and Suspected Problems (Last Updated 10/11/17 @ 09:06 by Gosia Martinez) Lower GI bleed (Acute) Chronic A. fib on Xarelto (Acute) Recurrent falls (Acute) Generalized weakness (Acute) The patient is a 72 year old F with multiple comorbidities including chronic heart failure with preserved EF, bilateral lower extremity pain and cellulitis, chronic A. fib on Xarelto came to ER with generalized weakness for 3-4 weeks and rectal bleed, bright red for last 1 week. Patient has been feeling progressively weak and had fall first 1 last week Monday for which she had a peña in the head in ER and then last 1 3 days ago on Monday for which she felt on the arm of the chair and has bruise on the right side of lower back. Patient did not had syncope. As per her daughter, she has been feeling weak and is not able to walk and using wheelchair which she normally does not use. Patient denies nausea vomiting or abdominal pain. She did not had recent EGD last 4-5 years but denies gastric ulcer/esophageal varices. Patient had colonoscopy by Dr. Alvarado. Patient has other significant comorbidities including peripheral arterial disease, venous stasis pulmonary hypertension and had a maze procedure. [] In ED, she was found to have hemoglobin 8.6 g percent, platelet count 2 75,000. INR was 8.0 and PTT 91.5. Patient's vital was noted, blood pressure 100/52, heart rate 94 pulse ox normal 96% on room air. Patient is further admitted in ICU after K Centra given in ER. 1. GI bleed most probably lower GI bleed secondary to Xarelto: Patient is being admitted in the ICU for IV fluid resuscitation, vitals and H&H and hemodynamic monitoring. IV fluid normal saline for resuscitation. Monitor intake/output. H&H every [address] Mitchell and surgeon Dr. Alvarado consulted. IV Protonix 40 mg every 12 hourly. Maintain n.p.o. except necessary medications 2. Acute blood loss anemia secondary to GI bleed due to Xarelto: As mentioned above. 3. Chronic A. fib with RVR: With RVR status post maze procedure: Currently heart rate is between 94- 125 bpm. On metoprolol 25 mg twice daily. Metoprolol 2.5 mg IV every 4 hourly as needed for heart rate more than 120/min. 4. Chronic heart failure with preserved EF, peripheral arterial disease, bilateral lower extremity venous stasis venous ulcer; chronic in nature, present on admission: Stable. 5. Diabetes mellitus type 2: On Accu-Chek every 6 hours and cover with NovoLog sliding scale. 6. Recent Klebsiella pneumonia UTI: Culture from December 01 shows Klebsiella pneumonia is. 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 7 other chronic comorbidities include chronic kidney disease stage III, lumbar spinal stenosis with radiculopathy, soft tissue mass of right and left lower extremity due to calciphylaxis versus erythema nodosum versus panniculitis, chronic lung nodule, hypertension and history of recent cellulitis with last admission in September 2017. Multiple comorbidities complicates the present care and prolongs hospital stay and possible delayed recovery. DVT prophylaxis: On bilateral SCDs. Pharmacological prophylaxis contraindicated. Microbiology Past 72 Hours 12/07/17 06:50 Stool Stool Occult Blood (ELEINTA) - Final Occult Blood Positive Laboratory Results 12/07/17 07:30: Sodium 135 L, Potassium 5.3 H, Chloride 108 H, Carbon Dioxide 17.0 L, Anion Gap 10, BUN 33 H, Creatinine 1.53 H, Estim Creat Clear Calc 29.12, Est GFR (MDRD) Af Amer 43 L, Est GFR (MDRD) Non-Af 36 L, BUN/Creatinine Ratio 21.6 H, Glucose 108 H, Calcium 8.8, Troponin I < 0.02 12/07/17 07:35: PT 68.1 H, INR 8.0 H*, APTT 91.5 H* 12/07/17 07:35: Lactic Acid 1.4 12/07/17 07:35: Blood Type A POSITIVE, Antibody Screen NEGATIVE 12/07/17 07:35: WBC 12.5 H, RBC 3.97 L, Hgb 8.6 L, Hct 28.1 L, MCV 70.8 L, MCH 21.7 L, MCHC 30.6 L, RDW 23.0 H, RDW Differential 57.9 H, Plt Count 275, MPV 9.8, Immature Gran % (Auto) 0.400, Neut % (Auto) 83.6 H, Lymph % (Auto) 8.3 L, [place] % (Auto) 6.9, Eos % (Auto) 0.6, Baso % (Auto) 0.2, Absolute Neuts (auto) 10.5 H, Absolute Lymphs (auto) 1.04, Total Counted Not Reportable, Differential Comment COMMENT Code Visit Inpatient E&M: 74222 Init Hosp L3
--- NOTE | 2017-12-07 09:50 | HP.PCM_ITS ---
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 (10) Chronic atrial fibrillation Status: Chronic Comment: DCCV 10/10, 10/2015; MAZE procedure @ [facility] 2016; (11) Status post placement of implantable loop recorder Status: Chronic (12) History of maze procedure Status: Chronic (13) Other secondary pulmonary hypertension Status: Chronic (14) Chronic diastolic (congestive) heart failure Status: Chronic (15) GI bleeding Status: Resolved Qualifiers: GI bleed type/associated pathology: unspecified gastrointestinal hemorrhage type Qualified Code(s): K92.2 - Gastrointestinal hemorrhage, unspecified (16) Symptomatic anemia Status: Chronic (17) Hypertension Status: Chronic Qualifiers: (18) Type 2 diabetes mellitus Status: Chronic Qualifiers: (19) Lung nodule Status: Chronic (20) Coumadin-induced coagulopathy Status: Resolved (21) Chronic kidney disease, stage 3 Status: Chronic (22) Shortness of breath Status: Acute (23) Spinal stenosis of lumbar region with radiculopathy Status: Chronic (24) PAD (peripheral artery disease) Status: Chronic (25) Venous stasis ulcer of left lower leg with edema of left lower leg Status: Chronic (26) Venous stasis ulcer of right lower leg with edema of right lower leg Status: Chronic (27) Arthralgia Status: Chronic Qualifiers: (28) Myalgia Status: Chronic (29) Mass of soft tissue of left lower extremity Status: Chronic Comment: left inner upper thigh - ? calciphylaxis vs. erythema nodosum vs. dermatomyositis vs. panniculitis (30) Mass of soft tissue of right lower extremity Status: Chronic Comment: right inner upper thigh - ? calciphylaxis vs. erythema nodosum vs. dermatomyositis vs. panniculitis (31) Lower GI bleed Status: Acute (32) Chronic A. fib on Xarelto Status: Acute (33) Recurrent falls Status: Acute (34) Generalized weakness Status: Acute History of Present Illness Date of Admission: 12/07/17 Chief Complaint: Bright red rectal bleed for 1 week. generalized weakness for 3 -4 weeks. The patient is a 72 year old F with multiple comorbidities including chronic heart failure with preserved EF, bilateral lower extremity pain and cellulitis, chronic A. fib on Xarelto came to ER with generalized weakness for 3-4 weeks and rectal bleed, bright red for last 1 week. Patient has been feeling progressively weak and had fall first 1 last week Monday for which she had a peña in the head in ER and then last 1 3 days ago on Monday for which she felt on the arm of the chair and has bruise on the right side of lower back. Patient did not had syncope. As per her daughter, she has been feeling weak and is not able to walk and using wheelchair which she normally does not use. Patient denies nausea vomiting or abdominal pain. She did not had recent EGD last 4-5 years but denies gastric ulcer/esophageal varices. Patient had colonoscopy by Dr. Alvarado. Patient has other significant comorbidities including peripheral arterial disease, venous stasis pulmonary hypertension and had a maze procedure. [] In ED, she was found to have hemoglobin 8.6 g percent, platelet count 2 75,000. INR was 8.0 and PTT 91.5. Patient's vital was noted, blood pressure 100/52, heart rate 94 pulse ox normal 96% on room air. Patient is further admitted in ICU after K Centra given in ER Past Medical History Past Medical History (Chronic Problems): Chronic Problems (Last Updated 10/11/17 @ 09:06 by Gosia Martinez) Calcinosis (Chronic) Edema, lower extremity (Chronic) Pulmonary hypertension, secondary (Chronic) History of cardiac radiofrequency ablation (RFA) (Chronic) 1st part of MAZE procedure Lt Atrial Ablation 01/12/17 @ [facility] Localized edema (Chronic) Heart failure with 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 (Chronic) skilled nursing current use of anticoagulant (Chronic) Chronic atrial fibrillation (Chronic) DCCV 10/10, 10/2015; MAZE procedure @ [facility] 01/12/2017; Status post placement of implantable loop recorder (Chronic) History of maze procedure (Chronic) Other secondary pulmonary hypertension (Chronic) Chronic diastolic (congestive) heart failure (Chronic) Symptomatic anemia (Chronic) Hypertension (Chronic) Type 2 diabetes mellitus (Chronic) Lung nodule (Chronic) Chronic kidney disease, stage 3 (Chronic) 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 calciphylaxis vs. erythema nodosum vs. dermatomyositis vs. panniculitis Mass of soft tissue of right lower extremity (Chronic) right inner upper thigh - ? calciphylaxis vs. erythema nodosum vs. dermatomyositis vs. panniculitis Allergies amlodipine besylate [From Norvasc] Allergy (Verified 12/07/17 06:11) Unknown Shortness of breath ceftriaxone Allergy (Verified 12/07/17 06:11) Rash doxazosin mesylate [From Cardura] Allergy (Verified 12/07/17 06:11) Unknown Pt doesn't remember doxycycline Allergy (Verified 12/07/17 06:11) Unknown Pt doesn't remember enalapril maleate [From Vasotec] Allergy (Verified 12/07/17 06:11) Rash enalaprilat dihydrate [From Vasotec] Allergy (Verified 12/07/17 06:11) Rash hydroxyzine HCl [From Vistaril] Allergy (Verified 12/07/17 06:11) Rash hydroxyzine pamoate [From Vistaril] Allergy (Verified 12/07/17 06:11) Rash meperidine HCl [From Demerol] Allergy (Verified 12/07/17 06:11) Rash Sulfa (Sulfonamide Antibiotics) Allergy (Verified 12/07/17 06:11) Hives sulfamethoxazole [From Bactrim] Allergy (Verified 12/04/17 05:42) Hives trimethoprim [From Bactrim] Allergy (Verified 12/04/17 05:42) Hives Home Medications: Ambulatory Orders Medication Instructions Recorded Metoprolol Tartrate [Lopressor 12.5 mg PO BID #90 tab 11/06/15 (beta alok)] Aspirin [Adult Low Dose Aspirin EC] 81 mg PO DAILY 03/03/17 Gabapentin [Neurontin] 100 mg PO 4X/DAY 09/29/17 Fluoxetine [Prozac] 20 mg PO DAILY 09/30/17 furosemide 40 mg tablet 20 mg PO QODAY tab 10/11/17 Lysine [l-Lysine] 1,000 mg PO DAILY 11/18/17 Morphine Sulfate [Morphine Sulfate 15 mg PO DAILY 11/18/17 ER] Rivaroxaban [Xarelto] 15 mg PO DAILY 11/18/17 potassium chloride ER 10 mEq 10 meq PO QDAY #30 tab 11/27/17 tablet,extended release Celecoxib [Celebrex] 200 mg PO DAILY 12/04/17 Hydrocodone/Acetaminophen 1 tab PO BID 12/04/17 [Hydrocodone-Acetamin 5-325 mg] Surgical History: cataract, cholecystectomy, hysterectomy, - Smoking Status: Never smoker - *Family History Maternal History Items: No pertinent history Paternal History Items: No pertinent history Review of Systems Constitutional: Reports: Malaise, Weakness, Fatigue HEENT: Denies: Head Aches, Sinus Congestion, Sinus Drainage Cardiovascular: Denies: Chest Pain, Palpitations Respiratory: Reports: Shortness of Breath. Denies: Cough, Shortness of breath at rest, Sputum production Gastrointestinal: Reports: Hematochezia. Denies: Abdominal Pain, Nausea, Vomiting Genitourinary: Denies: Dysuria Musculoskeletal: Reports: Joint Pain, Joint Tenderness, Muscle pain Skin: Denies: Rash, Wounds Neurological: Denies: Numbness, Tingling, Focal weakness Psychiatric: Denies: Anxiety, Depression, Homicidal Ideations, Suicidal Ideations Hematologic/ Lymphatic: Reports: Easy Bruising. Denies: Easy Bleeding VTE Information - Inpt Only VTE Present on Admission: No VTE Mechan Device Prophylaxis: SCD's VTE Pharm Prophylaxis ordered?: No Reason prophylaxis not ordered:: Medical Contraindication Patient Problems: Active and Suspected Problems (Last Updated 10/11/17 @ 09:06 by Gosia Martinez ) Lower GI bleed (Acute) Chronic A. fib on Xarelto (Acute) Recurrent falls (Acute) Generalized weakness (Acute) - Physical Exam General: Alert, Oriented x3, Cooperative, Lethargic HEENT: Atraumatic, PERRLA, EOMI, Normocephalic Oral: Dry Mucosa Neck: Supple, No JVD, Negative Carotid Bruits Lungs: Clear to auscultation, No rhonchi, No wheeze, No rales, Diminished Cardiovascular: Regular rate, Normal S1, Normal S2, No murmurs, Irregular Rate Abdomen: Bowel Sounds Present, Soft, Non Tender, Non-Distended Extremities: Capillary Refill Less than 3 Seconds, Edema Skin: Skin Tear, - - Bilateral lower extremity varicose vein and covered with stockings. Musculoskeletal: Arthritic Changes, Muscle Wasting, Tenderness Neurological: Cranial nerves II-XII grossly intact Psych/Mental Status: Normal Affect, Appropriate Vital Signs Temp Pulse Resp BP Pulse Ox 98.4 F 100 16 115/67 98 12/07/17 06:06 12/07/17 09:13 12/07/17 09:13 12/07/17 09:13 12/07/17 09:13 Assessment/Plan Active and Suspected Problems (Last Updated 10/11/17 @ 09:06 by Gosia Martinez ) Lower GI bleed (Acute) Chronic A. fib on Xarelto (Acute) Recurrent falls (Acute) Generalized weakness (Acute) The patient is a 72 year old F with multiple comorbidities including chronic heart failure with preserved EF, bilateral lower extremity pain and cellulitis, chronic A. fib on Xarelto came to ER with generalized weakness for 3-4 weeks and rectal bleed, bright red for last 1 week. Patient has been feeling progressively weak and had fall first 1 last week Monday for which she had a peña in the head in ER and then last 1 3 days ago on Monday for which she felt on the arm of the chair and has bruise on the right side of lower back. Patient did not had syncope. As per her daughter, she has been feeling weak and is not able to walk and using wheelchair which she normally does not use. Patient denies nausea vomiting or abdominal pain. She did not had recent EGD last 4-5 years but denies gastric ulcer/esophageal varices. Patient had colonoscopy by Dr. Alvarado. Patient has other significant comorbidities including peripheral arterial disease, venous stasis pulmonary hypertension and had a maze procedure. [] In ED, she was found to have hemoglobin 8.6 g percent, platelet count 2 75,000. INR was 8.0 and PTT 91.5. Patient's vital was noted, blood pressure 100/52, heart rate 94 pulse ox normal 96% on room air. Patient is further admitted in ICU after K Centra given in ER. 1. GI bleed most probably lower GI bleed secondary to Xarelto: Patient is being admitted in the ICU for IV fluid resuscitation, vitals and H&H and hemodynamic monitoring. IV fluid normal saline for resuscitation. Monitor intake/output. H&H every [address] Mitchell and surgeon Dr. Alvarado consulted. IV Protonix 40 mg every 12 hourly. Maintain n.p.o. except necessary medications 2. Acute blood loss anemia secondary to GI bleed due to Xarelto: As mentioned above. 3. Chronic A. fib with RVR: With RVR status post maze procedure: Currently heart rate is between 94- 125 bpm. On metoprolol 25 mg twice daily. Metoprolol 2.5 mg IV every 4 hourly as needed for heart rate more than 120/min. 4. Chronic heart failure with preserved EF, peripheral arterial disease, bilateral lower extremity venous stasis venous ulcer; chronic in nature, present on admission: Stable. 5. Diabetes mellitus type 2: On Accu-Chek every 6 hours and cover with NovoLog sliding scale. 6. Recent Klebsiella pneumonia UTI: Culture from December 01 shows Klebsiella pneumonia is. 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 7 other chronic comorbidities include chronic kidney disease stage III, lumbar spinal stenosis with radiculopathy, soft tissue mass of right and left lower extremity due to calciphylaxis versus erythema nodosum versus panniculitis, chronic lung nodule, hypertension and history of recent cellulitis with last admission in September 2017. Multiple comorbidities complicates the present care and prolongs hospital stay and possible delayed recovery. DVT prophylaxis: On bilateral SCDs. Pharmacological prophylaxis contraindicated. Microbiology Past 72 Hours 12/07/17 06:50 Stool Stool Occult Blood ([facility]) - Final Occult Blood Positive Laboratory Results 12/07/17 07:30: Sodium 135 L, Potassium 5.3 H, Chloride 108 H, Carbon Dioxide 17.0 L, Anion Gap 10, BUN 33 H, Creatinine 1.53 H, Estim Creat Clear Calc 29.12 , Est GFR (MDRD) Af Amer 43 L, Est GFR (MDRD) Non-Af 36 L, BUN/Creatinine Ratio 21.6 H, Glucose 108 H, Calcium 8.8, Troponin I < 0.02 12/07/17 07:35: PT 68.1 H, INR 8.0 H*, APTT 91.5 H* 12/07/17 07:35: Lactic Acid 1.4 12/07/17 07:35: Blood Type A POSITIVE, Antibody Screen NEGATIVE 12/07/17 07:35: WBC 12.5 H, RBC 3.97 L, Hgb 8.6 L, Hct 28.1 L, MCV 70.8 L, MCH 21.7 L, MCHC 30.6 L, RDW 23.0 H, RDW Differential 57.9 H, Plt Count 275, MPV 9.8 , Immature Gran % (Auto) 0.400, Neut % (Auto) 83.6 H, Lymph % (Auto) 8.3 L, [place] % (Auto) 6.9, Eos % (Auto) 0.6, Baso % (Auto) 0.2, Absolute Neuts (auto) 10.5 H, Absolute Lymphs (auto) 1.04, Total Counted Not Reportable, Differential Comment COMMENT Code Visit Inpatient E&M: 91189 Init Hosp L3
--- NOTE | 2017-12-07 11:14 | PCM.CON.CC ---
Reason for Consult Date of Consultation: 12/07/17 Reason for Consultation: Blood loss anemia/coagulopathy History of Present Illness: The patient is a 72-year-old female, with a history as outlined below, who presented to the emergency department on December 07 with generalized weakness and a number of recent falls. The patient has been seen in the emergency department on multiple occasions since the end of October. She was last seen on December 01 for complaints of confusion. Subsequent workup revealed evidence of cystitis, for which the patient was placed on ciprofloxacin. Urine culture sent at that time revealed Klebsiella pneumonia. The patient currently follows with Dr. Childers on an outpatient basis due to a history of atrial fibrillation with multiple previous failed cardioversions and ablation attempts. The patient was recently anticoagulated on Coumadin, but states that she was transitioned to Xarelto approximately 2 weeks ago. She states that the time she was transitioned to Xarelto, she recalls her INR being around 3. The patient also has a history of restrictive lung mechanics based off of PFTs completed previously. She also has underlying obstructive sleep apnea, for which it was recommended that she be placed on bilevel therapy at a pressure setting of 15/11 cm of water with humidification. The patient states that she has been noncompliant with its use over the last 2 weeks due to machine malfunctioning. However, she never contacted her DME provider to have the issue addressed. On presentation to the emergency department, the patient was noted to be afebrile, tachycardic and hemodynamically stable. Laboratory evaluation revealed a mildly elevated white blood cell count to 13,000. The patient had evidence of microcytic anemia with a hemoglobin of 8.6 and hematocrit of 28. The patient has a baseline hemoglobin level between 9 and 10 g/dL. The patient was noted to be coagulopathic with an INR of 8.0. Chemistry profile revealed a mildly elevated potassium to 5.3 along with evidence of chronic kidney disease with a creatinine of 1.53. Serum lactate was within normal limits. Troponin was negative. Stool for occult blood was positive. The patient was given Protonix and administered K Centra. She was subsequently transferred to the medical intensive care unit for ongoing management. Past Medical History Past Medical History (Chronic Problems): Chronic Problems (Last Updated 10/11/17 @ 09:06 by Gosia Martinez) Calcinosis (Chronic) Edema, lower extremity (Chronic) Pulmonary hypertension, secondary (Chronic) History of cardiac radiofrequency ablation (RFA) (Chronic) 1st part of MAZE procedure Lt Atrial Ablation 01/12/17 @ [facility] Localized edema (Chronic) Heart failure with 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 (Chronic) intermediate frame tender current use of anticoagulant (Chronic) Chronic atrial fibrillation (Chronic) [facility] 10/10, 10/2015; MAZE procedure @ [facility] 01/12/2017; Status post placement of implantable loop recorder (Chronic) History of maze procedure (Chronic) Other secondary pulmonary hypertension (Chronic) Chronic diastolic (congestive) heart failure (Chronic) Symptomatic anemia (Chronic) Hypertension (Chronic) Type 2 diabetes mellitus (Chronic) Lung nodule (Chronic) Chronic kidney disease, stage 3 (Chronic) 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 calciphylaxis vs. erythema nodosum vs. dermatomyositis vs. panniculitis Mass of soft tissue of right lower extremity (Chronic) right inner upper thigh - ? calciphylaxis vs. erythema nodosum vs. dermatomyositis vs. panniculitis Allergies amlodipine besylate [From Norvasc] Allergy (Verified 12/07/17 06:11) Unknown Shortness of breath ceftriaxone Allergy (Verified 12/07/17 06:11) Rash doxazosin mesylate [From Cardura] Allergy (Verified 12/07/17 06:11) Unknown Pt doesn't remember doxycycline Allergy (Verified 12/07/17 06:11) Unknown Pt doesn't remember enalapril maleate [From Vasotec] Allergy (Verified 12/07/17 06:11) Rash enalaprilat dihydrate [From Vasotec] Allergy (Verified 12/07/17 06:11) Rash hydroxyzine HCl [From Vistaril] Allergy (Verified 12/07/17 06:11) Rash hydroxyzine pamoate [From Vistaril] Allergy (Verified 12/07/17 06:11) Rash meperidine HCl [From Demerol] Allergy (Verified 12/07/17 06:11) Rash Sulfa (Sulfonamide Antibiotics) Allergy (Verified 12/07/17 06:11) Hives sulfamethoxazole [From Bactrim] Allergy (Verified 12/04/17 05:42) Hives trimethoprim [From Bactrim] Allergy (Verified 12/04/17 05:42) Hives Home Medications: Ambulatory Orders Medication Instructions Recorded Metoprolol Tartrate [Lopressor 12.5 mg PO BID #90 tab 11/06/15 (beta alok)] Aspirin [Adult Low Dose Aspirin EC] 81 mg PO DAILY 03/03/17 Gabapentin [Neurontin] 100 mg PO 4X/DAY 09/29/17 Fluoxetine [Prozac] 20 mg PO DAILY 09/30/17 furosemide 40 mg tablet 20 mg PO QODAY tab 10/11/17 Lysine [l-Lysine] 1,000 mg PO DAILY 11/18/17 Morphine Sulfate [Morphine Sulfate 15 mg PO DAILY 11/18/17 ER] Rivaroxaban [Xarelto] 15 mg PO DAILY 11/18/17 potassium chloride ER 10 mEq 10 meq PO QDAY #30 tab 11/27/17 tablet,extended release Celecoxib [Celebrex] 200 mg PO DAILY 12/04/17 Hydrocodone/Acetaminophen 1 tab PO BID 12/04/17 [Hydrocodone-Acetamin 5-325 mg] Surgical History: cataract, cholecystectomy, hysterectomy, - Smoking Status: Never smoker - *Family History Maternal History Items: No pertinent history Paternal History Items: No pertinent history Review of Systems Constitutional: Reports: Weakness, Fatigue Eyes: Denies: Blurred vision, Double vision HEENT: Denies: Head Aches, Sinus Congestion, Sinus Drainage Cardiovascular: Denies: Chest Pain, Palpitations Respiratory: Denies: Cough, Shortness of breath at rest, Sputum production Gastrointestinal: Denies: Abdominal Pain, Nausea, Vomiting Genitourinary: Denies: Dysuria Musculoskeletal: Reports: Leg Pain Skin: Reports: Wounds Neurological: Reports: Balance problems, Confusion Psychiatric: Denies: Anxiety, Depression, Homicidal Ideations, Suicidal Ideations Hematologic/ Lymphatic: Reports: Anemia Patient Problems: Active and Suspected Problems (Last Updated 10/11/17 @ 09:06 by Gosia Martinez) Lower GI bleed (Acute) Chronic A. fib on Xarelto (Acute) Recurrent falls (Acute) Generalized weakness (Acute) Objective: The patient's most recent lab work, culture data and imaging studies have all been personally reviewed. The patient's last surface echocardiogram from May 2015 revealed mild concentric LVH with an ejection fraction of 50%. Pulmonary artery systolic pressure was estimated to be 44 mmHg. Urine culture dated December 01 was positive for the presence of Klebsiella pneumoniae. - Physical Exam General: Alert, Cooperative, No apparent distress HEENT: Atraumatic, PERRLA, Normocephalic Oral: No Gingival or Mucosal Lesions/ Ulcerations, Dry Mucosa Neck: Supple, No Nodes, Trachea Midline Lungs: No rhonchi, No wheeze, No rales, Diminished Cardiovascular: Normal S1, Normal S2, No murmurs, Tachycardic Abdomen: Bowel Sounds Present, Soft, Non Tender, Obese Extremities: No clubbing, No cyanosis, Edema Skin: - - Chronic lower extremity wounds, present on admission. Musculoskeletal: No Tenderness to Palpation of Joints or Extremities Lymphatic: No Cervical, Supraclavicular, or Inguinal Adenopathy Neurological: Neuro grossly intact Psych/Mental Status: Normal Affect, Appropriate Vital Signs Temp Pulse Resp BP Pulse Ox 97.2 F L 118 H 22 H 120/84 H 98 12/07/17 10:20 12/07/17 10:20 12/07/17 10:20 12/07/17 10:20 12/07/17 09:13 Oxygen Delivery Method Room Air Weight: 187 lb 13.341 oz Body Mass Index (BMI) 33.3 Laboratory Tests Past 24 Hrs 12/07/17 10:52 MRSA (PCR) Pending Labs (Last 48 Hours) 12/07/17 12/07/17 12/07/17 07:30 07:35 07:35 WBC RBC Hgb Hct MCV MCH MCHC RDW RDW Differential Plt Count MPV Immature Gran % (Auto) Neut % (Auto) Lymph % (Auto) [place] % (Auto) Eos % (Auto) Baso % (Auto) Absolute Neuts (auto) Absolute Lymphs (auto) Total Counted Differential Comment PT 68.1 H INR 8.0 H* APTT 91.5 H* Sodium 135 L Potassium 5.3 H Chloride 108 H Carbon Dioxide 17.0 L Anion Gap 10 BUN 33 H Creatinine 1.53 H Estim Creat Clear Calc 29.12 Est GFR (MDRD) Af Amer 43 L Est GFR (MDRD) Non-Af 36 L BUN/Creatinine Ratio 21.6 H Glucose 108 H Lactic Acid 1.4 Calcium 8.8 Troponin I < 0.02 MRSA (PCR) Blood Type Antibody Screen 12/07/17 12/07/17 12/07/17 07:35 07:35 10:52 WBC 12.5 H RBC 3.97 L Hgb 8.6 L Hct 28.1 L MCV 70.8 L MCH 21.7 L MCHC 30.6 L RDW 23.0 H RDW Differential 57.9 H Plt Count 275 MPV 9.8 Immature Gran % (Auto) 0.400 Neut % (Auto) 83.6 H Lymph % (Auto) 8.3 L [place] % (Auto) 6.9 Eos % (Auto) 0.6 Baso % (Auto) 0.2 Absolute Neuts (auto) 10.5 H Absolute Lymphs (auto) 1.04 Total Counted Not Reportable Differential Comment COMMENT PT INR APTT Sodium Potassium Chloride Carbon Dioxide Anion Gap BUN Creatinine Estim Creat Clear Calc Est GFR (MDRD) Af Amer Est GFR (MDRD) Non-Af BUN/Creatinine Ratio Glucose Lactic Acid Calcium Troponin I MRSA (PCR) Pending Blood Type A POSITIVE Antibody Screen NEGATIVE Microbiology 12/07/17 06:50 Stool Stool Occult Blood (ELENITA) - Final Occult Blood Positive Clinical Impression(s) from Imaging Studies Chest X-Ray 12/07/17 06:27 IMPRESSION: No acute cardiopulmonary abnormalities or changes. There is stable mild enlargement of the cardiac silhouette without pulmonary edema or pleural effusion. There is minimal bibasilar atelectasis due to low volume inspiration. Electronically Signed: Christen Gold MD at 7:00 EDT Tel Direct: [phone], Service support , Assessment/Plan Active and Suspected Problems (Last Updated 10/11/17 @ 09:06 by Gosia Martinez) Lower GI bleed (Acute) Chronic A. fib on Xarelto (Acute) Recurrent falls (Acute) Generalized weakness (Acute) RECOMMENDATIONS: 1. Continue to monitor blood counts for now. Check INR daily. 2. Transition from ciprofloxacin to ceftriaxone for continued treatment of the patient's Klebsiella cystitis 3. Discontinue morphine given the patient's renal insufficiency and hold Neurontin 4. IV fentanyl as needed can be used for pain 5. Continue PPI twice daily 6. Patient to remain n.p.o. for now IMPRESSIONS: 1. Blood loss anemia The patient has a baseline, chronic microcytic anemia. Her current hemoglobin is not far from what her baseline is. She is not experiencing a life-threatening gastrointestinal bleed. Her blood loss is likely secondary to her coagulopathy, precipitated by a drug interaction between Xarelto and ciprofloxacin, for which the patient was previously started on. The patient's Xarelto is now on hold. Given that she does have an underlying urinary tract infection, her antibiotics will be transitioned to ceftriaxone. Monitor blood counts. The patient remains hemodynamically stable. Plan to transfuse if hemoglobin drops below 7 g/dL. Dr. Alvarado is following for potential endoscopy. 2. Coagulopathy/atrial fibrillation Likely secondary to interaction between ciprofloxacin and Xarelto, as the combination can lead to increased Xarelto levels, increasing the risk for bleeding. The patient already received K Centra downstairs in the ED. We will continue to monitor blood counts accordingly. 3. Klebsiella pneumoniae cystitis The patient will be transitioned to ceftriaxone based upon urine culture sensitivities. 4. Obstructive sleep apnea Recommend continuing BiPAP 09/08 with naps and nightly. [facility] will need to be contacted prior to the patient's discharge from the hospital to address her home machine malfunction. 5. Chronic wounds/ulcers of bilateral lower extremities The patient is currently being followed in the wound care clinic and was last seen by them on December 06. The etiology for her ulcers are felt to be secondary to venous insufficiency. Continue local wound care. Fentanyl can be utilized for pain as needed. 6. Obesity/chronic kidney disease/peripheral neuropathy/anxiety Complicates care, management, recovery and prognosis. Hold patient's Neurontin and other outpatient p.o. medications for now. This note was generated with [employer] dictation software. It may contain incorrect words, spelling, and punctuation that were not noted in checking the note before signing. Code Visit Inpatient E&M: 23279 Init Hosp L3
[2017-12-07] MEDS: fentaNYL 100 MCG/2 ML Ampul 25 MCG IV ×2 (11:49→13:27)
[2017-12-07] MEDS: 0.9% Normal Saline 1,000 ML 150 ML IV (11:59)
--- NOTE | 2017-12-07 12:32 | CHAPLAIN ---
Type of Pastoral Visit _x__ Initial Visit ___ Follow-up Visit ___ On-call Visit ___ General Patient Visit ___ Spiritual Assessment ___ Family Conference ___ Bereavement ___ Rapid Response ___ Code Blue ___ Other (describe below) Pastoral Care Referral From _x__ Patient _x__ Family ___ Nurse ___ Physician ___ Promotions Representative ___ Strapper ___ Other (describe below) Sacrament/Intervention _x__ Active listening ___ Anointing ___ Pentecostal ___ Bereavement ___ Communion ___ Amy exploration ___ ___ Life review _x__ Prayer ___ Reconciliation ___ Sacrament of Sick _x__ Supportive presence ___ Wedding ___ Other (describe below) Pastoral Comments
[2017-12-07 13:01] LABS: Bedside Glucose 96 mg/dL (70-110)
[2017-12-07 13:25] LABS: Hemoglobin 8.5 g/dl (12.0-15.0)
[2017-12-07] MEDS: Ceftriaxone 1 GM/50 mL Premix Q24 IV (13:38)
--- NOTE | 2017-12-07 14:42 | NURSING ---
Was asked to see patient for wounds to bilateral lower legs. pt is known to this nurse. patient has also [facility]. wounds are very painful. Nursing had already changed the dressings today. will wait to remove until tomorrow since they are so painful. According to the [facility]ound Center progress notes, patient is now to be using Hydrogel since the Santyl is no longer being covered by insurance and is too expensive for the patient. there has not been any progress in the healing of these wounds. There is venous insufficiency and is is unsure whether there is other factors contributing to poor wound healing. continue conservative treatment at this time.
[2017-12-07 15:14] LABS: M R Staph aureus DNA By PCR Negative (Negative); Probe Check PASS; Specimen Processing Control PASS
[2017-12-07 15:31] LABS: Mucous, Urine 0 SEEN /hpf (<or=2+); Squamous Epithelial Cells - UA 0 SEEN /hpf (5-10); White Blood Cells 0 SEEN /hpf (0-5)
[2017-12-07 15:48] LABS: Color, Urine Yellow (Yellow); Glucose, Dipstick Normal (Normal); Ketone-Dipstick Negative (Negative); Leukocyte Esterase-Dipstick Negative /ul (Negative); Nitrite-Dipstick Negative (Negative); Occult Blood-Urine 25 /ul (Negative); Protein-Dipstick Negative (Negative); Urine Bilirubin Dipstick Negative (Negative); Urine Clarity Clear (Clear); Urine Urobilinogen Normal (Normal)
[2017-12-07 16:10] LABS: Bacteria 1+ /hpf (None Seen); Red Blood Cells-Urine 0-5 SEEN /hpf (0-5)
--- NOTE | 2017-12-07 16:17 | CHAPLAIN ---
Type of Pastoral Visit ___ Initial Visit _x__ Follow-up Visit ___ On-call Visit ___ General Patient Visit ___ Spiritual Assessment ___ Family Conference ___ Bereavement ___ Rapid Response ___ Code Blue ___ Other (describe below) Pastoral Care Referral From ___ Patient _x__ Family ___ Nurse ___ Physician ___ Director Of Recruiting ___ Basket Mender ___ Other (describe below) Sacrament/Intervention x__ Active listening ___ Anointing ___ Alevism ___ Bereavement ___ Communion ___ Amy exploration ___ ___ Life review _x__ Prayer ___ Reconciliation ___ Sacrament of Sick ___ Supportive presence ___ Wedding _x__ Other (describe below) Pastoral Comments encountered family in hallway and daughter proceeded to talk about her mother and her concerns for her health; daughter indicates that her brother will not talk about possible ; daughter indicates pt has said that she just wants the pain to be over and is ready to ; met with rest of family and offered support; was invited to come and say a prayer with patient and family;
[2017-12-07] MEDS: Metoprolol Tartrate 25 MG Tablet PO (17:07)
[2017-12-07 17:40] LABS: Bedside Glucose 75 mg/dL (70-110)
[2017-12-07 18:31] LABS: Hematocrit 26.8 % (37-47); Hemoglobin 8.3 g/dl (12.0-15.0)
[2017-12-07] MEDS: Temazepam 15 MG Capsule PO (23:52)
[2017-12-08] VITALS (30 sets, daily range): BP systolic 97–154; BP diastolic 40–87; PULSE 87–116; RESP 12–24; TEMP 36.4–37.1; O2SAT 94–100
--- NOTE | 2017-12-08 | NURSING ---
BGT 62 noted for midnight check; gave OJ and peanut butter crackers will recheck in 1 hour.
[2017-12-08 00:01] LABS: Bedside Glucose 62 mg/dL (70-110)
[2017-12-08 01:06] LABS: Bedside Glucose 112 mg/dL (70-110)
--- NOTE | 2017-12-08 01:06 | NURSING ---
BGT 112 on recheck
[2017-12-08 06:06] LABS: Anion Gap 8 (5-15); BUN 24 mg/dL (7-18); BUN/Creat Ratio 19.8 RATIO (10-20); Calcium,Total 7.5 mg/dL (8.5-10.1); Chloride 112 mmol/L (98-107); Creatinine, Serum 1.21 mg/dL (0.55-1.02); EST Glomerular Filtration Rate 47 mL/min (>60); Est Glom Filt Rate - Afr Amer 56 mL/min (>60); Estimated Creatinine Clearance 35.28 ml/min; Glucose 85 mg/dL (74-106); Sodium Level 141 mmol/L (136-145)
[2017-12-08 06:36] LABS: Bedside Glucose 82 mg/dL (70-110)
--- NOTE | 2017-12-08 06:40 | PN_ITS ---
Subjective: The patient was seen and examined at the bedside this morning. Events from the last 24 hours have been reviewed. The patient is currently afebrile with low normal blood pressures and is currently maintaining appropriate oxygen saturations on room air. Blood counts have been stable. Creatinine is improving. The patient is overall net +2 L for the admission. Nursing staff reported that the patient did have a bloody bowel movement overnight. This morning, the patient denies the presence of abdominal pain, nausea or vomiting. Morning labs were unable to be drawn as the patient is a difficult stick and has poor IV access. Objective: The patient's most recent lab work, culture data and imaging studies have all been personally reviewed. The patient's last surface echocardiogram from May 2015 revealed mild concentric LVH with an ejection fraction of 50%. Pulmonary artery systolic pressure was estimated to be 44 mmHg. Urine culture dated December 01 was positive for the presence of Klebsiella pneumoniae. Stool for occult blood was positive on December 07. General: Alert, Cooperative, No apparent distress, - - Pale in appearance HEENT: Atraumatic, PERRLA, Normocephalic Oral: No Gingival or Mucosal Lesions/ Ulcerations, Dry Mucosa Neck: Supple, No Nodes, Trachea Midline Lungs: No rhonchi, No wheeze, No rales, Diminished Cardiovascular: Regular rate, Regular Rhythm, Normal S1, Normal S2, No murmurs Abdomen: Soft, Non Tender, Hypoactive Bowel Sounds, Obese Extremities: No clubbing, No cyanosis, Edema Skin: - - Chronic lower extremity wounds, present on admission Musculoskeletal: No Muscle Wasting Lymphatic: No Cervical, Supraclavicular, or Inguinal Adenopathy Neurological: Neuro grossly intact Psych/Mental Status: Normal Affect, Appropriate Vital Signs Temp Pulse Resp BP Pulse Ox 98.1 F 94 17 97/49 L 96 12/08/17 01:00 12/08/17 04:00 12/08/17 04:00 12/08/17 04:00 12/08/17 04:00 Oxygen Delivery Method Room Air Weight: 192 lb 10.944 oz Body Mass Index (BMI) 33.3 Intake and Output for Last 24 Hours 12/06/17 12/07/17 12/08/17 23:59 23:59 23:59 Intake Total 2008 705 / 705 Output Total 400 / 400 350 / 350 Balance 1609 / 1609 355 / 355 Labs (Last 48 Hours) 12/07/17 12/07/17 12/07/17 10:52 12:54 13:10 Hgb 8.5 L Hct 27.0 L Sodium Potassium Chloride Carbon Dioxide Anion Gap BUN Creatinine Estim Creat Clear Calc Est GFR (MDRD) Af Amer Est GFR (MDRD) Non-Af BUN/Creatinine Ratio Glucose Calcium Urine Color Urine Clarity Urine pH Ur Specific [place] Urine Protein Urine Glucose (UA) Urine Ketones Urine Occult Blood Urine Nitrite Urine Bilirubin Urine Urobilinogen Ur Leukocyte Esterase Urine RBC Urine WBC Ur Squamous Epith Cells Urine Bacteria Urine Mucus MRSA (PCR) Negative POC Glucose 96 12/07/17 12/07/17 12/07/17 15:20 17:32 18:20 Hgb 8.3 L Hct 26.8 L Sodium Potassium Chloride Carbon Dioxide Anion Gap BUN Creatinine Estim Creat Clear Calc Est GFR (MDRD) Af Amer Est GFR (MDRD) Non-Af BUN/Creatinine Ratio Glucose Calcium Urine Color Yellow Urine Clarity Clear Urine pH 5.0 Ur Specific [place] 1.020 Urine Protein Negative Urine Glucose (UA) Normal Urine Ketones Negative Urine Occult Blood 25 H Urine Nitrite Negative Urine Bilirubin Negative Urine Urobilinogen Normal Ur Leukocyte Esterase Negative Urine RBC 0-5 SEEN Urine WBC 0 SEEN Ur Squamous Epith Cells 0 SEEN Urine Bacteria 1+ Urine Mucus 0 SEEN MRSA (PCR) POC Glucose 75 12/07/17 12/08/17 12/08/17 23:47 00:58 05:35 Hgb Hct Sodium 141 Potassium 4.0 Chloride 112 H Carbon Dioxide 21.0 Anion Gap 8 BUN 24 H Creatinine 1.21 H Estim Creat Clear Calc 35.28 Est GFR (MDRD) Af Amer 56 L Est GFR (MDRD) Non-Af 47 L BUN/Creatinine Ratio 19.8 Glucose 85 Calcium 7.5 L Urine Color Urine Clarity Urine pH Ur Specific [place] Urine Protein Urine Glucose (UA) Urine Ketones Urine Occult Blood Urine Nitrite Urine Bilirubin Urine Urobilinogen Ur Leukocyte Esterase Urine RBC Urine WBC Ur Squamous Epith Cells Urine Bacteria Urine Mucus MRSA (PCR) POC Glucose 62 L 112 H 12/08/17 06:32 Hgb Hct Sodium Potassium Chloride Carbon Dioxide Anion Gap BUN Creatinine Estim Creat Clear Calc Est GFR (MDRD) Af Amer Est GFR (MDRD) Non-Af BUN/Creatinine Ratio Glucose Calcium Urine Color Urine Clarity Urine pH Ur Specific [place] Urine Protein Urine Glucose (UA) Urine Ketones Urine Occult Blood Urine Nitrite Urine Bilirubin Urine Urobilinogen Ur Leukocyte Esterase Urine RBC Urine WBC Ur Squamous Epith Cells Urine Bacteria Urine Mucus MRSA (PCR) POC Glucose 82 Clinical Impression(s) from Imaging Studies Chest X-Ray 12/07/17 06:27 IMPRESSION: No acute cardiopulmonary abnormalities or changes. There is stable mild enlargement of the cardiac silhouette without pulmonary edema or pleural effusion. There is minimal bibasilar atelectasis due to low volume inspiration. Electronically Signed: Christen Gold MD at 7:00 EDT Tel Direct: [phone], Service support , Assessment/Plan Active and Suspected Problems (Last Updated 10/11/17 @ 09:06 by Gosia Martinez ) Lower GI bleed (Acute) Chronic A. fib on Xarelto (Acute) Recurrent falls (Acute) Generalized weakness (Acute) RECOMMENDATIONS: 1. Continue to monitor blood counts for now. Check INR daily. 2. Continue ceftriaxone for continued treatment of the patient's Klebsiella cystitis 3. Continue fentanyl for now for pain control. Once the patient is able to take p.o. would recommend transitioning to something other than extended release morphine for outpatient pain control, given the patient's renal insufficiency. 4. Continue PPI twice daily 5. If blood counts remain stable today and her INR is improving, can consider starting clear liquids 6. PICC line versus midline to be placed, given poor access. IMPRESSIONS: 1. Blood loss anemia The patient has a baseline, chronic microcytic anemia. Her current hemoglobin is not far from what her baseline is. She is not experiencing a life- threatening gastrointestinal bleed. Her blood loss is likely secondary to her coagulopathy, precipitated by a drug interaction between Xarelto and ciprofloxacin, for which the patient was previously started on. The patient's Xarelto is now on hold. Given that she does have an underlying urinary tract infection, her antibiotics have been transitioned to ceftriaxone. Will continue to monitor blood counts. The patient remains hemodynamically stable. Plan to transfuse if hemoglobin drops below 7 g/dL. Dr. Alvarado is following for potential endoscopy, which can likely be accomplished on an outpatient basis. 2. Coagulopathy/atrial fibrillation Likely secondary to interaction between ciprofloxacin and Xarelto, as the combination can lead to increased Xarelto levels, increasing the risk for bleeding. The patient already received K Centra downstairs in the ED. We will continue to monitor blood counts accordingly. 3. Klebsiella pneumoniae cystitis Continue ceftriaxone to complete treatment course. 4. Obstructive sleep apnea Recommend continuing BiPAP 09/08 with naps and nightly. [facility] will need to be contacted prior to the patient's discharge from the hospital to address her home machine malfunction. 5. Chronic wounds/ulcers of bilateral lower extremities The patient is currently being followed in the wound care clinic and was last seen by them on December 06. The etiology for her ulcers are felt to be secondary to venous insufficiency. Continue local wound care. Fentanyl can be utilized for pain as needed. 6. Obesity/chronic kidney disease/peripheral neuropathy/anxiety Complicates care, management, recovery and prognosis. Hold patient's Neurontin and other outpatient p.o. medications for now. Physical therapy to evaluate patient. This note was generated with [employer] dictation software. It may contain incorrect words, spelling, and punctuation that were not noted in checking the note before signing. Code Visit Inpatient E&M: 72034 [facility] Hosp L3
--- NOTE | 2017-12-08 07:50 | CON.PCM_ITS ---
Problem List (1) GI bleeding Status: Resolved Qualifiers: GI bleed type/associated pathology: unspecified gastrointestinal hemorrhage type Qualified Code(s): K92.2 - Gastrointestinal hemorrhage, unspecified Reason for Consult Date of Consultation: 12/08/17 History of Present Illness: The patient is a 72 year old F with multiple comorbidities including chronic heart failure with preserved EF, bilateral lower extremity pain and cellulitis, chronic A. fib on Xarelto came to ER with generalized weakness for 3-4 weeks and rectal bleed, bright red for last 1 week. Patient has been feeling progressively weak and had fall first 1 last week Monday for which she had a peña in the head in ER and then last 1 3 days ago on Monday for which she felt on the arm of the chair and has bruise on the right side of lower back. Patient did not had syncope. As per her daughter, she has been feeling weak and is not able to walk and using wheelchair which she normally does not use. Patient denies nausea vomiting or abdominal pain. She did not had recent EGD last 4-5 years but denies gastric ulcer/esophageal varices. Patient had colonoscopy by Dr. Alvarado. Patient has other significant comorbidities including peripheral arterial disease, venous stasis pulmonary hypertension and had a maze procedure. In ED, she was found to have hemoglobin 8.6 g percent, platelet count 2 75,000. INR was 8.0 and PTT 91.5. Patient's vital was noted, blood pressure 100/52, heart rate 94 pulse ox normal 96% on room air. Patient is further admitted in ICU after K Centra given in ER Patient has had no further rectal bleeding since being in the intensive care unit. Her hemoglobin has remained relatively stable. Past Medical History Past Medical History (Chronic Problems): Chronic Problems (Last Updated 10/11/17 @ 09:06 by Gosia Martinez) Calcinosis (Chronic) Edema, lower extremity (Chronic) Pulmonary hypertension, secondary (Chronic) History of cardiac radiofrequency ablation (RFA) (Chronic) 1st part of MAZE procedure Lt Atrial Ablation 01/12/17 @ Sy Localized edema (Chronic) Heart failure with 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 (Chronic) intermediate current use of anticoagulant (Chronic) Chronic atrial fibrillation (Chronic) [facility] 10/10, 10/2015; MAZE procedure @ [place] 01/12/2017; Status post placement of implantable loop recorder (Chronic) History of maze procedure (Chronic) Other secondary pulmonary hypertension (Chronic) Chronic diastolic (congestive) heart failure (Chronic) Symptomatic anemia (Chronic) Hypertension (Chronic) Type 2 diabetes mellitus (Chronic) Lung nodule (Chronic) Chronic kidney disease, stage 3 (Chronic) 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 calciphylaxis vs. erythema nodosum vs. dermatomyositis vs. panniculitis Mass of soft tissue of right lower extremity (Chronic) right inner upper thigh - ? calciphylaxis vs. erythema nodosum vs. dermatomyositis vs. panniculitis Allergies amlodipine besylate [From Norvasc] Allergy (Verified 12/07/17 06:11) Unknown Shortness of breath ceftriaxone Allergy (Verified 12/07/17 06:11) Rash doxazosin mesylate [From Cardura] Allergy (Verified 12/07/17 06:11) Unknown Pt doesn't remember doxycycline Allergy (Verified 12/07/17 06:11) Unknown Pt doesn't remember enalapril maleate [From Vasotec] Allergy (Verified 12/07/17 06:11) Rash enalaprilat dihydrate [From Vasotec] Allergy (Verified 12/07/17 06:11) Rash hydroxyzine HCl [From Vistaril] Allergy (Verified 12/07/17 06:11) Rash hydroxyzine pamoate [From Vistaril] Allergy (Verified 12/07/17 06:11) Rash meperidine HCl [From Demerol] Allergy (Verified 12/07/17 06:11) Rash Sulfa (Sulfonamide Antibiotics) Allergy (Verified 12/07/17 06:11) Hives sulfamethoxazole [From Bactrim] Allergy (Verified 12/04/17 05:42) Hives trimethoprim [From Bactrim] Allergy (Verified 12/04/17 05:42) Hives Home Medications: Ambulatory Orders Medication Instructions Recorded Metoprolol Tartrate [Lopressor 12.5 mg PO BID #90 tab 11/06/15 (beta alok)] Aspirin [Adult Low Dose Aspirin EC] 81 mg PO DAILY 03/03/17 Gabapentin [Neurontin] 100 mg PO 4X/DAY 09/29/17 Fluoxetine [Prozac] 20 mg PO DAILY 09/30/17 furosemide 40 mg tablet 20 mg PO QODAY tab 10/11/17 Lysine [l-Lysine] 1,000 mg PO DAILY 11/18/17 Morphine Sulfate [Morphine Sulfate 15 mg PO DAILY 11/18/17 ER] Rivaroxaban [Xarelto] 15 mg PO DAILY 11/18/17 potassium chloride ER 10 mEq 10 meq PO QDAY #30 tab 11/27/17 tablet,extended release Celecoxib [Celebrex] 200 mg PO DAILY 12/04/17 Hydrocodone/Acetaminophen 1 tab PO BID 12/04/17 [Hydrocodone-Acetamin 5-325 mg] Surgical History: cataract, cholecystectomy, hysterectomy, - Smoking Status: Never smoker - *Family History Maternal History Items: No pertinent history Paternal History Items: No pertinent history Review of Systems Gastrointestinal: Reports: - - At home the patient did have some bright red rectal bleeding which she had for approximately 2 weeks prior to coming in. Denies: Abdominal Pain Patient Problems: Active and Suspected Problems (Last Updated 10/11/17 @ 09:06 by Gosia Martinez ) Lower GI bleed (Acute) Chronic A. fib on Xarelto (Acute) Recurrent falls (Acute) Generalized weakness (Acute) - Physical Exam General: Alert, Oriented x3 Abdomen: Soft, Non Tender, Non-Distended Vital Signs Temp Pulse Resp BP Pulse Ox 98.1 F 90 15 109/55 L 97 12/08/17 01:00 12/08/17 06:00 12/08/17 06:00 12/08/17 06:00 12/08/17 06:00 Oxygen Delivery Method Room Air Weight: 192 lb 10.944 oz Body Mass Index (BMI) 33.3 Intake and Output for Last 24 Hours 12/06/17 12/07/17 12/08/17 23:59 23:59 23:59 Intake Total 2008 719 / 719 Output Total 400 / 400 650 / 650 Balance 1609 / 1609 69 / 69 Laboratory Tests Past 24 Hrs 12/07/17 12/07/17 12/07/17 10:52 13:10 15:20 Hgb 8.5 L Hct 27.0 L Sodium Potassium Chloride Carbon Dioxide Anion Gap BUN Creatinine Estim Creat Clear Calc Est GFR (MDRD) Af Amer Est GFR (MDRD) Non-Af BUN/Creatinine Ratio Glucose Calcium Urine Color Yellow Urine Clarity Clear Urine pH 5.0 Ur Specific [place] 1.020 Urine Protein Negative Urine Glucose (UA) Normal Urine Ketones Negative Urine Occult Blood 25 H Urine Nitrite Negative Urine Bilirubin Negative Urine Urobilinogen Normal Ur Leukocyte Esterase Negative Urine RBC 0-5 SEEN Urine WBC 0 SEEN Ur Squamous Epith Cells 0 SEEN Urine Bacteria 1+ Urine Mucus 0 SEEN MRSA (PCR) Negative 12/07/17 12/08/17 18:20 05:35 Hgb 8.3 L Hct 26.8 L Sodium 141 Potassium 4.0 Chloride 112 H Carbon Dioxide 21.0 Anion Gap 8 BUN 24 H Creatinine 1.21 H Estim Creat Clear Calc 35.28 Est GFR (MDRD) Af Amer 56 L Est GFR (MDRD) Non-Af 47 L BUN/Creatinine Ratio 19.8 Glucose 85 Calcium 7.5 L Urine Color Urine Clarity Urine pH Ur Specific [place] Urine Protein Urine Glucose (UA) Urine Ketones Urine Occult Blood Urine Nitrite Urine Bilirubin Urine Urobilinogen Ur Leukocyte Esterase Urine RBC Urine WBC Ur Squamous Epith Cells Urine Bacteria Urine Mucus MRSA (PCR) POC Glucose 12/08/17 12/08/17 12/07/17 06:32 00:58 23:47 POC Glucose 82 112 H 62 L 12/07/17 12/07/17 17:32 12:54 POC Glucose 75 96 Assessment/Plan Active and Suspected Problems (Last Updated 10/11/17 @ 09:06 by Gosia Martinez ) Lower GI bleed (Acute) Chronic A. fib on Xarelto (Acute) Recurrent falls (Acute) Generalized weakness (Acute) At this point I believe correcting her anticoagulation and obtaining a colonoscopy on an outpatient basis while she can get her other medical problems dealt with during this admission is the most appropriate course of action for her. I will see her back in the office when she is discharged.
--- NOTE | 2017-12-08 08:27 | PN_ITS ---
Patient Problems: Active and Suspected Problems (Last Updated 10/11/17 @ 09:06 by Gosia Martinez ) Lower GI bleed (Acute) Chronic A. fib on Xarelto (Acute) Recurrent falls (Acute) Generalized weakness (Acute) Subjective: The patient is awake and alert. Hemodynamically stable. Hemoglobin 8.3. Patient on IV ceftriaxone. The patient had 3 times a small amount of darkcolored brown colored stool received K Centra yesterday. She does not have nausea, lightheadedness or dizziness. No abdominal pain. Objective: General: Alert, Oriented x3, Cooperative. HEENT: Atraumatic, PERRLA, EOMI, Normocephalic Oral: Dry Mucosa Neck: Supple, No JVD, Negative Carotid Bruits Lungs: Clear to auscultation, No rhonchi, No wheeze, No rales, Diminished Cardiovascular: Regular rate, Normal S1, Normal S2, No murmurs, Irregular Rate Abdomen: Bowel Sounds Present, Soft, Non Tender, Non-Distended Extremities: Capillary Refill Less than 3 Seconds, Edema Skin: Skin Tear, - - Bilateral lower extremity varicose vein and covered with stockings. Superficial chronic ulcer of both lower legs which is extremely tender. On removing dressing superficial bleeding and oozing Musculoskeletal: Arthritic Changes, Muscle Wasting, Tenderness Neurological: Cranial nerves II-XII grossly intact Psych/Mental Status: Normal Affect, Appropriate Vital Signs Vitals/I&O's: Vital Signs Temp Pulse Resp BP Pulse Ox 98.1 F 90 15 109/55 L 97 12/08/17 01:00 12/08/17 06:00 12/08/17 06:00 12/08/17 06:00 12/08/17 06:30 Oxygen Delivery Method Room Air Weight: 192 lb 10.944 oz Body Mass Index (BMI) 33.3 Intake and Output for Last 24 Hours 12/06/17 12/07/17 12/08/17 23:59 23:59 23:59 Intake Total 2008 719 / 719 Output Total 400 / 400 650 / 650 Balance 1609 / 1609 69 / 69 Laboratory Results 12/07/17 10:52: MRSA (PCR) Negative 12/07/17 12:54: POC Glucose 96 12/07/17 13:10: Hgb 8.5 L, Hct 27.0 L 12/07/17 15:20: Urine Color Yellow, Urine Clarity Clear, Urine pH 5.0, Ur Specific [place] 1.020, Urine Protein Negative, Urine Glucose (UA) Normal, Urine Ketones Negative, Urine Occult Blood 25 H, Urine Nitrite Negative, Urine Bilirubin Negative, Urine Urobilinogen Normal, Ur Leukocyte Esterase Negative, Urine RBC 0-5 SEEN, Urine WBC 0 SEEN, Ur Squamous Epith Cells 0 SEEN, Urine Bacteria 1+, Urine Mucus 0 SEEN 12/07/17 17:32: POC Glucose 75 12/07/17 18:20: Hgb 8.3 L, Hct 26.8 L 12/07/17 23:47: POC Glucose 62 L 12/08/17 00:58: POC Glucose 112 H 12/08/17 05:35: Sodium 141, Potassium 4.0, Chloride 112 H, Carbon Dioxide 21.0, Anion Gap 8, BUN 24 H, Creatinine 1.21 H, Estim Creat Clear Calc 35.28, Est GFR (MDRD) Af Amer 56 L, Est GFR (MDRD) Non-Af 47 L, BUN/Creatinine Ratio 19.8, Glucose 85, Calcium 7.5 L 12/08/17 06:32: POC Glucose 82 Current Medications Dextrose (D50w Syringe) 0 gm IV X1 PRN; Protocol PRN Reason: Hypoglycemia Diphenhydramine HCl (Benadryl) 12.5 - 25 mg IV Q6H PRN PRN PRN Reason: ITCHING Diphenhydramine HCl (Benadryl) 12.5 - 25 mg PO Q6H PRN PRN PRN Reason: Pruritis Fentanyl () 1,000 mcg IV UD BULMARO PRN Reason: Protocol Last Admin: 12/07/17 15:49 Dose: 1,000 mcg Fentanyl Citrate (Sublimaze) 25 mcg IV Q6H PRN PRN PRN Reason: PAIN Last Admin: 12/07/17 11:49 Dose: 25 mcg Glucagon () 1 mg IM .X1 PRN PRN Reason: Hypoglycemia Pantoprazole Sodium 40 mg/ (Sodium Chloride) 110 mls @ 330 mls/hr IV Q12 [facility] Last Admin: 12/07/17 17:07 Dose: 330 mls/hr Ceftriaxone Sodium (Rocephin) 1 gm in 50 mls @ 100 mls/hr IV Q24 BULMARO Last Admin: 12/07/17 13:38 Dose: 100 mls/hr Naloxone HCl 4 mg/ Dextrose 504 mls @ 0 mls/hr IV .Q0M PRN; Protocol; Titrate PRN Reason: To maintain Resp. rate >10 Insulin Aspart (Novolog Flexpen (Bkc)) 0 units SC Q6 BULMARO PRN Reason: Protocol Last Admin: 12/08/17 07:06 Dose: Not Given Magnesium Hydroxide (Milk Of Magnesia) 30 ml PO DAILY PRN PRN PRN Reason: Constipation Metoprolol Tartrate (Lopressor (Beta Brandt)) 25 mg PO BID BULMARO Last Admin: 12/07/17 17:07 Dose: 25 mg Metoprolol Tartrate (Lopressor (Beta Brandt)) 5 mg IV Q6 PRN PRN Reason: HR>120/m Naloxone HCl (Narcan) 0.02 mg IV Q1M PRN PRN Reason: RR <10 and pt unresponsive Senna/Docusate Sodium (Senokot-S, Gabriella-Colace) 2 tablet PO BID PRN PRN Reason: constipation Sodium Chloride () 5 - 30 ml IV UD PRN PRN Reason: SALINE FLUSH Temazepam (Restoril) 15 mg PO QHS PRN PRN PRN Reason: insomnia Last Admin: 12/07/17 23:52 Dose: 15 mg Assessment/Plan Active and Suspected Problems (Last Updated 10/11/17 @ 09:06 by Gosia Martinez ) Lower GI bleed (Acute) Chronic A. fib on Xarelto (Acute) Recurrent falls (Acute) Generalized weakness (Acute) The patient is a 72 year old F with multiple comorbidities including chronic heart failure with preserved EF, bilateral lower extremity pain and cellulitis, chronic A. fib on Xarelto came to ER with generalized weakness for 3-4 weeks and rectal bleed, bright red for last 1 week. Patient has been feeling progressively weak and had fall first 1 last week Monday for which she had a peña in the head in ER and then last 1 3 days ago on Monday for which she felt on the arm of the chair and has bruise on the right side of lower back. Patient did not had syncope. As per her daughter, she has been feeling weak and is not able to walk and using wheelchair which she normally does not use. Patient denies nausea vomiting or abdominal pain. She did not had recent EGD last 4-5 years but denies gastric ulcer/esophageal varices. Patient had colonoscopy by Dr. Alvarado. Patient has other significant comorbidities including peripheral arterial disease, venous stasis pulmonary hypertension and had a maze procedure. [] In ED, she was found to have hemoglobin 8.6 g percent, platelet count 2 75,000. INR was 8.0 and PTT 91.5. Patient's vital was noted, blood pressure 100/52, heart rate 94 pulse ox normal 96% on room air. Patient is further admitted in ICU after K Centra given in ER. 1. GI bleed most probably lower GI bleed secondary to Xarelto: Patient is being admitted in the ICU for IV fluid resuscitation, vitals and H&H and hemodynamic monitoring. IV fluid normal saline for resuscitation. Monitor intake/output. H&H stays between 8-9 g percent. Discussed with telehealth coordinator Dr. Mitchell and surgeon Dr. Alvarado. IV Protonix 40 mg every 12 hourly. Start on clear liquid diet. 2. Acute blood loss anemia secondary to GI bleed due to Xarelto: As mentioned above. Continue monitoring H&H. Patient IV access. PICC/midline line is preferable if the INR is in normal range 3. Chronic A. fib with RVR: With RVR status post maze procedure: Currently heart rate is in 90s. On metoprolol 25 mg twice daily. Metoprolol 2.5 mg IV every 4 hourly as needed for heart rate more than 120/min. 4. Capsular pneumoniae cystitis:urine culture shows Klebsiella pneumoniae on 12/01/2017, sensitive to Junior. Currently patient is on IV Rocephin. Chronic heart failure with preserved EF, peripheral arterial disease, bilateral lower extremity venous stasis venous ulcer; chronic in nature, present on admission: Stable. Last 2D echo from May 2015 shows EF 50% with mild concentric LVH. RVSP 44 mmHg. 5. Diabetes mellitus type 2: On Accu-Chek every 6 hours and cover with NovoLog sliding scale. 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 There is blackening of his skin and violaceous one margin with extreme tenderness suggestive of pyoderma gangrenosum. On discussion with my colleague, started on prednisone 60 mg daily. Wound care and dressing recommendation as per wound nurseKate. other chronic comorbidities include chronic kidney disease stage III, lumbar spinal stenosis with radiculopathy, soft tissue mass of right and left lower extremity due to calciphylaxis versus erythema nodosum versus panniculitis, chronic lung nodule, hypertension and history of recent cellulitis with last admission in September 2017. Multiple comorbidities complicates the present care and prolongs hospital stay and possible delayed recovery. DVT prophylaxis: On bilateral SCDs. Pharmacological prophylaxis contraindicated. Microbiology Past 72 Hours 12/07/17 06:50 Stool Stool Occult Blood (ELENITA) - Final Occult Blood Positive Laboratory Results 12/07/17 07:30: Sodium 135 L, Potassium 5.3 H, Chloride 108 H, Carbon Dioxide 17.0 L, Anion Gap 10, BUN 33 H, Creatinine 1.53 H, Estim Creat Clear Calc 29.12 , Est GFR (MDRD) Af Amer 43 L, Est GFR (MDRD) Non-Af 36 L, BUN/Creatinine Ratio 21.6 H, Glucose 108 H, Calcium 8.8, Troponin I < 0.02 12/07/17 07:35: PT 68.1 H, INR 8.0 H*, APTT 91.5 H* 12/07/17 07:35: Lactic Acid 1.4 12/07/17 07:35: Blood Type A POSITIVE, Antibody Screen NEGATIVE 12/07/17 07:35: WBC 12.5 H, RBC 3.97 L, Hgb 8.6 L, Hct 28.1 L, MCV 70.8 L, MCH 21.7 L, MCHC 30.6 L, RDW 23.0 H, RDW Differential 57.9 H, Plt Count 275, MPV 9.8 , Immature Gran % (Auto) 0.400, Neut % (Auto) 83.6 H, Lymph % (Auto) 8.3 L, [place] % (Auto) 6.9, Eos % (Auto) 0.6, Baso % (Auto) 0.2, Absolute Neuts (auto) 10.5 H, Absolute Lymphs (auto) 1.04, Total Counted Not Reportable, Differential Comment COMMENT Code Visit Inpatient E&M: 83925 Subs Hosp L3
[2017-12-08] MEDS: fentaNYL 100 MCG/2 ML Ampul 50 MCG IV (08:49)
[2017-12-08 09:19] LABS: Hemoglobin 8.4 g/dl (12.0-15.0); Mean Corp Hgb Conc 31.1 g/gl (32-36); Mean Corpuscular Hgb 21.9 pg (27.0-32.0); Mean Corpuscular Volume 70.5 fL (81-99); Mean Platelet Vol. 10.1 fl (6.2-12.0); Platelet Count 310 K/mm3 (150-450); RBC Distribution Width CV 23.6 % (11.6-14.6); RBC Distribution Width SD 56.3 fl (35.1-43.9); Red Blood Count 3.83 M/mm3 (4.2-5.4); White Blood Count 9.7 K/mm3 (4.4-11.0)
[2017-12-08 09:20] LABS: Scan Indicated on CBC? Y/N YES- FLAGS NOTED
--- NOTE | 2017-12-08 09:20 | NURSING ---
PICC line placement begun
--- NOTE | 2017-12-08 10:33 | RAD_ITS ---
STUDY: X-RAY CHEST REASON FOR EXAM: Female, 72 years old. PIC line placement. TECHNIQUE: Single AP portable view of the chest. COMPARISON: Comparison is made with prior study dated December 07, 2017. FINDINGS: A right-sided PICC line catheter is present. The tip is at the junction of the superior vena cava and right atrium. A loop recording device is seen in the left lower hemithorax. Stable mild increased markings bilaterally suggest lobar scarring. There is no demonstrated pleural abnormality. There is mild cardiac enlargement. Normal mediastinum and kenn. Normal visualized pulmonary arteries. There is atherosclerotic calcification of the aortic arch with tortuosity. There are diffuse degenerative changes of the visualized thoracic spine. Normal visualized ribs, clavicles, and shoulders. There is no demonstrated abnormality of the visualized soft tissue structures of the upper abdomen. RAD/CXR for Line Placement IMPRESSION: The tip of the right PICC line catheter is at the junction of the superior vena cava and right atrium. The lungs are stable. Electronically Signed: Carlos Cai MD at 12:28 EDT Tel [phone], Service support ,
[2017-12-08 10:46] LABS: International Normalized Ratio 1.7
[2017-12-08] MEDS: Metoprolol Tartrate 25 MG Tablet PO ×2 (11:05→22:04)
[2017-12-08] MEDS: Ceftriaxone 1 GM/50 mL Premix Q24 IV (11:10)
--- NOTE | 2017-12-08 12:57 | NURSING ---
wound photo: right lower leg (lateral view)
--- NOTE | 2017-12-08 12:58 | NURSING ---
wound photo: right lower leg (medial view)
--- NOTE | 2017-12-08 12:59 | NURSING ---
wound photo: left lower leg (posterior/lateral)
[2017-12-08 13:15] LABS: Bedside Glucose 107 mg/dL (70-110)
--- NOTE | 2017-12-08 15:23 | CASEMGMT ---
ANNETTA MCKINLEY ASSESSMENT COMPLETE. LACE Strata: 4. Adm Dx: GI Bleed Per physician report: The patient is a 72-year-old female, with a significant past medical history, who presented to the emergency department on December 07 with generalized weakness and a number of recent falls with injury to the head on one occasion in the last week. The patient has been seen in the emergency department on multiple occasions since the end of October. She was last seen on December 01 for complaints of confusion. Subsequent workup revealed evidence of cystitis, for which the patient was placed on ciprofloxacin. Urine culture sent at that time revealed Klebsiella pneumonia. The patient currently follows with Dr. Childers on an outpatient basis due to a history of atrial fibrillation with multiple previous failed cardioversions and ablation attempts. The patient was recently anticoagulated on Coumadin, but states that she was transitioned to Xarelto approximately 2 weeks ago. She states that the time she was transitioned to Xarelto, she recalls her INR being around 3. The patient also has a history of restrictive lung mechanics based off of PFTs completed previously. She also has underlying obstructive sleep apnea, for which it was recommended that she be placed on bilevel therapy at a pressure setting of 15/11 cm of water with humidification. The patient states that she has been noncompliant with its use over the last 2 weeks due to machine malfunctioning. However, she never contacted her DME provider to have the issue addressed. Transition Planning/Care Coordination: The patient will undergo scope by Dr. Alvarado. Patient reports a recent functional decline and is being followed by PT/OT in the hospital and per evaluation patient is functioning at a Max Assist of 2 with bathing, dressing and toileting, and patient has a strong retro lean when toileting. PT/OT recommendations are for SNF. Per patient, her goal is to transition back to home at discharge. ANNETTA MCKINLEY will continue to follow hospital course and assist with safe transition plan. Verbal handoff provided to Sri Canchola RN CM, MS2/ICU GUANACO Hart, RN-BC, [facility]
[2017-12-08 16:36] LABS: Bedside Glucose 154 mg/dL (70-110)
[2017-12-08] MEDS: Glucerna Shake 120 ML LIQUID PO (22:02)
[2017-12-08 22:20] LABS: Bedside Glucose 155 mg/dL (70-110)
[2017-12-09] VITALS (33 sets, daily range): BP systolic 96–138; BP diastolic 46–87; PULSE 78–105; RESP 12–24; TEMP 36.4–37; O2SAT 94–97
[2017-12-09 03:26] LABS: Bedside Glucose 158 mg/dL (70-110)
[2017-12-09 04:15] LABS: Absolute Lymphocyte Count 0.93 X10^3/ul (0.83-4.51); Absolute Neutrophil Count 8.6 X10^3/uL (2.0-7.7); Basophil# 0.01 X10^3/uL; Basophil% 0.1 % (0-1); Hematocrit 24.7 % (37-47); Hemoglobin 7.6 g/dl (12.0-15.0); Lymphocyte # 0.93 X10^3/ul (4.0); Lymphocyte % 9.4 % (19-41); Mean Corp Hgb Conc 30.8 g/gl (32-36); Mean Corpuscular Hgb 21.7 pg (27.0-32.0); Mean Corpuscular Volume 70.6 fL (81-99); Mean Platelet Vol. 9.4 fl (6.2-12.0); Monocyte# 0.33 X10^3/uL; Monocyte% 3.3 % (0-10); Neutrophil # 8.57 X10^3/uL (2.7-7.7); Neutrophil % 86.9 % (47-70); Platelet Count 276 K/mm3 (150-450); RBC Distribution Width CV 23.2 % (11.6-14.6); RBC Distribution Width SD 57.9 fl (35.1-43.9); White Blood Count 9.9 K/mm3 (4.4-11.0)
[2017-12-09 04:17] LABS: Differential Indicated SCAN CRITERIA MET; POSITIVE COUNT NO; POSITIVE DIFFERENTIAL NO; POSITIVE MORPHOLOGY YES
[2017-12-09 04:23] LABS: Anion Gap 7 (5-15); BUN 20 mg/dL (7-18); BUN/Creat Ratio 18.9 RATIO (10-20); Calcium,Total 8.3 mg/dL (8.5-10.1); Chloride 107 mmol/L (98-107); Creatinine, Serum 1.06 mg/dL (0.55-1.02); EST Glomerular Filtration Rate 54 mL/min (>60); Est Glom Filt Rate - Afr Amer 66 mL/min (>60); Estimated Creatinine Clearance 40.27 ml/min; Glucose 140 mg/dL (74-106); Sodium Level 138 mmol/L (136-145)
[2017-12-09 05:05] LABS: Differential Comment SCANNED
--- NOTE | 2017-12-09 06:57 | PCM.PN.INT ---
Subjective: The patient was seen and examined at the bedside this morning. Events from the last 24 hours have been reviewed. The patient is currently afebrile, hemodynamically stable and maintaining appropriate oxygen saturations on room air. The patient is currently overall net +2.3 L. She wore her BiPAP last evening for approximately 2 hours. Hemoglobin fell from 8.4 to 7.6 this morning. The patient denies shortness of breath or abdominal pain. She was tolerant of clear liquids yesterday. Objective: The patient's most recent lab work, culture data and imaging studies have all been personally reviewed. The patient's last surface echocardiogram from May 2015 revealed mild concentric LVH with an ejection fraction of 50%. Pulmonary artery systolic pressure was estimated to be 44 mmHg. Urine culture dated December 01 was positive for the presence of Klebsiella pneumoniae. Stool for occult blood was positive on December 07. General: Alert, Cooperative, No apparent distress HEENT: Atraumatic, PERRLA, Normocephalic Oral: No Gingival or Mucosal Lesions/ Ulcerations Neck: Supple, No Nodes, Trachea Midline Lungs: No rhonchi, No wheeze, Diminished, Rales Cardiovascular: Normal S1, Normal S2, No murmurs, Irregular Rate Abdomen: Bowel Sounds Present, Soft, Non Tender Extremities: No clubbing, No cyanosis, Edema Skin: - - Chronic lower extremity wounds, currently dressed, present on admission Musculoskeletal: No Muscle Wasting Lymphatic: No Cervical, Supraclavicular, or Inguinal Adenopathy Neurological: Neuro grossly intact Psych/Mental Status: Normal Affect, Appropriate Vital Signs Temp Pulse Resp BP Pulse Ox 97.6 F L 91 14 114/56 L 97 12/09/17 04:00 12/09/17 06:00 12/09/17 06:00 12/09/17 06:00 12/09/17 06:00 Oxygen Delivery Method Room Air Weight: 194 lb 10.691 oz Body Mass Index (BMI) 33.3 Intake and Output for Last 24 Hours 12/07/17 12/08/17 12/09/17 23:59 23:59 23:59 Intake Total 2008 / 2047 464 / 464 Output Total 400 / 400 1200 / 1200 565 / 565 Balance 1609 / 1609 848 / 848 -101 / -101 Labs (Last 48 Hours) 0312/07/17 12/07/17 10:52 12:54 13:10 WBC RBC Hgb 8.5 L Hct 27.0 L MCV MCH MCHC RDW RDW Differential Plt Count MPV Immature Gran % (Auto) Neut % (Auto) Lymph % (Auto) [place] % (Auto) Eos % (Auto) Baso % (Auto) Absolute Neuts (auto) Absolute Lymphs (auto) Total Counted Differential Comment PT INR Sodium Potassium Chloride Carbon Dioxide Anion Gap BUN Creatinine Estim Creat Clear Calc Est GFR (MDRD) Af Amer Est GFR (MDRD) Non-Af BUN/Creatinine Ratio Glucose Calcium Urine Color Urine Clarity Urine pH Ur Specific [place] Urine Protein Urine Glucose (UA) Urine Ketones Urine Occult Blood Urine Nitrite Urine Bilirubin Urine Urobilinogen Ur Leukocyte Esterase Urine RBC Urine WBC Ur Squamous Epith Cells Urine Bacteria Urine Mucus MRSA (PCR) Negative POC Glucose 96 12/07/17 12/07/17 12/07/17 15:20 17:32 18:20 WBC RBC Hgb 8.3 L Hct 26.8 L MCV MCH MCHC RDW RDW Differential Plt Count MPV Immature Gran % (Auto) Neut % (Auto) Lymph % (Auto) [place] % (Auto) Eos % (Auto) Baso % (Auto) Absolute Neuts (auto) Absolute Lymphs (auto) Total Counted Differential Comment PT INR Sodium Potassium Chloride Carbon Dioxide Anion Gap BUN Creatinine Estim Creat Clear Calc Est GFR (MDRD) Af Amer Est GFR (MDRD) Non-Af BUN/Creatinine Ratio Glucose Calcium Urine Color Yellow Urine Clarity Clear Urine pH 5.0 Ur Specific [place] 1.020 Urine Protein Negative Urine Glucose (UA) Normal Urine Ketones Negative Urine Occult Blood 25 H Urine Nitrite Negative Urine Bilirubin Negative Urine Urobilinogen Normal Ur Leukocyte Esterase Negative Urine RBC 0-5 SEEN Urine WBC 0 SEEN Ur Squamous Epith Cells 0 SEEN Urine Bacteria 1+ Urine Mucus 0 SEEN MRSA (PCR) POC Glucose 75 12/07/17 12/08/17 12/08/17 23:47 00:58 05:35 WBC RBC Hgb Hct MCV MCH MCHC RDW RDW Differential Plt Count MPV Immature Gran % (Auto) Neut % (Auto) Lymph % (Auto) [place] % (Auto) Eos % (Auto) Baso % (Auto) Absolute Neuts (auto) Absolute Lymphs (auto) Total Counted Differential Comment PT INR Sodium 141 Potassium 4.0 Chloride 112 H Carbon Dioxide 21.0 Anion Gap 8 BUN 24 H Creatinine 1.21 H Estim Creat Clear Calc 35.28 Est GFR (MDRD) Af Amer 56 L Est GFR (MDRD) Non-Af 47 L BUN/Creatinine Ratio 19.8 Glucose 85 Calcium 7.5 L Urine Color Urine Clarity Urine pH Ur Specific [place] Urine Protein Urine Glucose (UA) Urine Ketones Urine Occult Blood Urine Nitrite Urine Bilirubin Urine Urobilinogen Ur Leukocyte Esterase Urine RBC Urine WBC Ur Squamous Epith Cells Urine Bacteria Urine Mucus MRSA (PCR) POC Glucose 62 L 112 H 12/08/17 12/08/17 12/08/17 06:32 09:00 10:30 WBC 9.7 RBC 3.83 L Hgb 8.4 L Hct 27.0 L MCV 70.5 L MCH 21.9 L MCHC 31.1 L RDW 23.6 H RDW Differential 56.3 H Plt Count 310 MPV 10.1 Immature Gran % (Auto) Neut % (Auto) Lymph % (Auto) [place] % (Auto) Eos % (Auto) Baso % (Auto) Absolute Neuts (auto) Absolute Lymphs (auto) Total Counted Differential Comment COMMENT PT 20.0 H INR 1.7 Sodium Potassium Chloride Carbon Dioxide Anion Gap BUN Creatinine Estim Creat Clear Calc Est GFR (MDRD) Af Amer Est GFR (MDRD) Non-Af BUN/Creatinine Ratio Glucose Calcium Urine Color Urine Clarity Urine pH Ur Specific [place] Urine Protein Urine Glucose (UA) Urine Ketones Urine Occult Blood Urine Nitrite Urine Bilirubin Urine Urobilinogen Ur Leukocyte Esterase Urine RBC Urine WBC Ur Squamous Epith Cells Urine Bacteria Urine Mucus MRSA (PCR) POC Glucose 82 12/08/17 12/08/17 12/08/17 13:09 16:28 22:01 WBC RBC Hgb Hct MCV MCH MCHC RDW RDW Differential Plt Count MPV Immature Gran % (Auto) Neut % (Auto) Lymph % (Auto) [place] % (Auto) Eos % (Auto) Baso % (Auto) Absolute Neuts (auto) Absolute Lymphs (auto) Total Counted Differential Comment PT INR Sodium Potassium Chloride Carbon Dioxide Anion Gap BUN Creatinine Estim Creat Clear Calc Est GFR (MDRD) Af Amer Est GFR (MDRD) Non-Af BUN/Creatinine Ratio Glucose Calcium Urine Color Urine Clarity Urine pH Ur Specific [place] Urine Protein Urine Glucose (UA) Urine Ketones Urine Occult Blood Urine Nitrite Urine Bilirubin Urine Urobilinogen Ur Leukocyte Esterase Urine RBC Urine WBC Ur Squamous Epith Cells Urine Bacteria Urine Mucus MRSA (PCR) POC Glucose 107 154 H 155 H 12/09/17 12/09/17 12/09/17 03:16 04:00 04:00 WBC 9.9 RBC 3.50 L Hgb 7.6 L Hct 24.7 L MCV 70.6 L MCH 21.7 L MCHC 30.8 L RDW 23.2 H RDW Differential 57.9 H Plt Count 276 MPV 9.4 Immature Gran % (Auto) 0.300 Neut % (Auto) 86.9 H Lymph % (Auto) 9.4 L [place] % (Auto) 3.3 Eos % (Auto) 0.0 Baso % (Auto) 0.1 Absolute Neuts (auto) 8.6 H Absolute Lymphs (auto) 0.93 Total Counted Not Reportable Differential Comment SCANNED PT INR Sodium 138 Potassium 4.0 Chloride 107 Carbon Dioxide 24.0 Anion Gap 7 BUN 20 H Creatinine 1.06 H Estim Creat Clear Calc 40.27 Est GFR (MDRD) Af Amer 66 Est GFR (MDRD) Non-Af 54 L BUN/Creatinine Ratio 18.9 Glucose 140 H Calcium 8.3 L Urine Color Urine Clarity Urine pH Ur Specific [place] Urine Protein Urine Glucose (UA) Urine Ketones Urine Occult Blood Urine Nitrite Urine Bilirubin Urine Urobilinogen Ur Leukocyte Esterase Urine RBC Urine WBC Ur Squamous Epith Cells Urine Bacteria Urine Mucus MRSA (PCR) POC Glucose 158 H Clinical Impression(s) from Imaging Studies Chest X-Ray 12/07/17 06:27 IMPRESSION: No acute cardiopulmonary abnormalities or changes. There is stable mild enlargement of the cardiac silhouette without pulmonary edema or pleural effusion. There is minimal bibasilar atelectasis due to low volume inspiration. Electronically Signed: Christen Gold MD at 7:00 EDT Tel Direct: [phone], Service support , Chest X-Ray 12/08/17 10:33 IMPRESSION: The tip of the right PICC line catheter is at the junction of the superior vena cava and right atrium. The lungs are stable. Electronically Signed: Carlos Cai MD at 12:28 EDT Tel [phone], Service support , Medical Necessity - Tobacco Use Smoking Status: Never smoker Assessment/Plan Active and Suspected Problems (Last Updated 10/11/17 @ 09:06 by Gosia Martinez) Lower GI bleed (Acute) Chronic A. fib on Xarelto (Acute) Recurrent falls (Acute) Generalized weakness (Acute) RECOMMENDATIONS: 1. Continue to monitor blood counts daily. 2. Transfuse 1 additional unit of packed red blood cells 3. Continue ceftriaxone for continued treatment of the patient's Klebsiella cystitis 4. Administer IV Lasix 40 mg ?1. Consider restarting outpatient Lasix regimen tomorrow. 5. Discontinue fentanyl drip and start OxyContin with as needed oxycodone. 6. Continue PPI twice daily IMPRESSIONS: 1. Blood loss anemia The patient has a baseline, chronic microcytic anemia. Her current hemoglobin is not far from what her baseline is. She is not experiencing a life-threatening gastrointestinal bleed. Her blood loss is likely secondary to her coagulopathy, precipitated by a drug interaction between Xarelto and ciprofloxacin, for which the patient was previously started on. The patient's Xarelto is now on hold. Given that she does have an underlying urinary tract infection, and her antibiotics have been transitioned to ceftriaxone. Will continue to monitor blood counts daily. The patient remains hemodynamically stable. Plan to transfuse if hemoglobin drops below 7 g/dL. Dr. Alvarado is following for potential endoscopy, which can likely be accomplished on an outpatient basis. 2. Coagulopathy/atrial fibrillation Likely secondary to interaction between ciprofloxacin and Xarelto, as the combination can lead to increased Xarelto levels, increasing the risk for bleeding. The patient did receive K Centra in the ED. We will continue to monitor blood counts accordingly. 3. Klebsiella pneumoniae cystitis Continue ceftriaxone to complete treatment course. 4. Obstructive sleep apnea Recommend continuing BiPAP 09/08 with naps and nightly. [facility] will need to be contacted prior to the patient's discharge from the hospital to address her home machine malfunction. 5. Chronic wounds/ulcers of bilateral lower extremities The patient is currently being followed in the wound care clinic and was last seen by them on December 06. The etiology for her ulcers are felt to be secondary to venous insufficiency. Continue local wound care. Fentanyl will be discontinued and the patient will be placed on long-acting OxyContin with oxycodone for breakthrough pain. 6. Obesity/chronic kidney disease/peripheral neuropathy/anxiety Complicates care, management, recovery and prognosis. Physical therapy to work with patient. This note was generated with [employer] dictation software. It may contain incorrect words, spelling, and punctuation that were not noted in checking the note before signing. Code Visit Inpatient E&M: 24441 Subs Hosp L3
--- NOTE | 2017-12-09 07:02 | PN_ITS ---
Subjective: The patient was seen and examined at the bedside this morning. Events from the last 24 hours have been reviewed. The patient is currently afebrile, hemodynamically stable and maintaining appropriate oxygen saturations on room air. The patient is currently overall net +2.3 L. She wore her BiPAP last evening for approximately 2 hours. Hemoglobin fell from 8.4 to 7.6 this morning. The patient denies shortness of breath or abdominal pain. She was tolerant of clear liquids yesterday. Objective: The patient's most recent lab work, culture data and imaging studies have all been personally reviewed. The patient's last surface echocardiogram from May 2015 revealed mild concentric LVH with an ejection fraction of 50%. Pulmonary artery systolic pressure was estimated to be 44 mmHg. Urine culture dated December 01 was positive for the presence of Klebsiella pneumoniae. Stool for occult blood was positive on December 07. General: Alert, Cooperative, No apparent distress HEENT: Atraumatic, PERRLA, Normocephalic Oral: No Gingival or Mucosal Lesions/ Ulcerations Neck: Supple, No Nodes, Trachea Midline Lungs: No rhonchi, No wheeze, Diminished, Rales Cardiovascular: Normal S1, Normal S2, No murmurs, Irregular Rate Abdomen: Bowel Sounds Present, Soft, Non Tender Extremities: No clubbing, No cyanosis, Edema Skin: - - Chronic lower extremity wounds, currently dressed, present on admission Musculoskeletal: No Muscle Wasting Lymphatic: No Cervical, Supraclavicular, or Inguinal Adenopathy Neurological: Neuro grossly intact Psych/Mental Status: Normal Affect, Appropriate Vital Signs Temp Pulse Resp BP Pulse Ox 97.6 F L 91 14 114/56 L 97 12/09/17 04:00 12/09/17 06:00 12/09/17 06:00 12/09/17 06:00 12/09/17 06:00 Oxygen Delivery Method Room Air Weight: 194 lb 10.691 oz Body Mass Index (BMI) 33.3 Intake and Output for Last 24 Hours 12/07/17 12/08/17 12/09/17 23:59 23:59 23:59 Intake Total 2008 / 2047 464 / 464 Output Total 400 / 400 1200 / 1200 565 / 565 Balance 1609 / 1609 848 / 848 -101 / -101 Labs (Last 48 Hours) 0312/07/17 12/07/17 10:52 12:54 13:10 WBC RBC Hgb 8.5 L Hct 27.0 L MCV MCH MCHC RDW RDW Differential Plt Count MPV Immature Gran % (Auto) Neut % (Auto) Lymph % (Auto) [place] % (Auto) Eos % (Auto) Baso % (Auto) Absolute Neuts (auto) Absolute Lymphs (auto) Total Counted Differential Comment PT INR Sodium Potassium Chloride Carbon Dioxide Anion Gap BUN Creatinine Estim Creat Clear Calc Est GFR (MDRD) Af Amer Est GFR (MDRD) Non-Af BUN/Creatinine Ratio Glucose Calcium Urine Color Urine Clarity Urine pH Ur Specific [place] Urine Protein Urine Glucose (UA) Urine Ketones Urine Occult Blood Urine Nitrite Urine Bilirubin Urine Urobilinogen Ur Leukocyte Esterase Urine RBC Urine WBC Ur Squamous Epith Cells Urine Bacteria Urine Mucus MRSA (PCR) Negative POC Glucose 96 12/07/17 12/07/17 12/07/17 15:20 17:32 18:20 WBC RBC Hgb 8.3 L Hct 26.8 L MCV MCH MCHC RDW RDW Differential Plt Count MPV Immature Gran % (Auto) Neut % (Auto) Lymph % (Auto) [place] % (Auto) Eos % (Auto) Baso % (Auto) Absolute Neuts (auto) Absolute Lymphs (auto) Total Counted Differential Comment PT INR Sodium Potassium Chloride Carbon Dioxide Anion Gap BUN Creatinine Estim Creat Clear Calc Est GFR (MDRD) Af Amer Est GFR (MDRD) Non-Af BUN/Creatinine Ratio Glucose Calcium Urine Color Yellow Urine Clarity Clear Urine pH 5.0 Ur Specific [place] 1.020 Urine Protein Negative Urine Glucose (UA) Normal Urine Ketones Negative Urine Occult Blood 25 H Urine Nitrite Negative Urine Bilirubin Negative Urine Urobilinogen Normal Ur Leukocyte Esterase Negative Urine RBC 0-5 SEEN Urine WBC 0 SEEN Ur Squamous Epith Cells 0 SEEN Urine Bacteria 1+ Urine Mucus 0 SEEN MRSA (PCR) POC Glucose 75 12/07/17 12/08/17 12/08/17 23:47 00:58 05:35 WBC RBC Hgb Hct MCV MCH MCHC RDW RDW Differential Plt Count MPV Immature Gran % (Auto) Neut % (Auto) Lymph % (Auto) [place] % (Auto) Eos % (Auto) Baso % (Auto) Absolute Neuts (auto) Absolute Lymphs (auto) Total Counted Differential Comment PT INR Sodium 141 Potassium 4.0 Chloride 112 H Carbon Dioxide 21.0 Anion Gap 8 BUN 24 H Creatinine 1.21 H Estim Creat Clear Calc 35.28 Est GFR (MDRD) Af Amer 56 L Est GFR (MDRD) Non-Af 47 L BUN/Creatinine Ratio 19.8 Glucose 85 Calcium 7.5 L Urine Color Urine Clarity Urine pH Ur Specific [place] Urine Protein Urine Glucose (UA) Urine Ketones Urine Occult Blood Urine Nitrite Urine Bilirubin Urine Urobilinogen Ur Leukocyte Esterase Urine RBC Urine WBC Ur Squamous Epith Cells Urine Bacteria Urine Mucus MRSA (PCR) POC Glucose 62 L 112 H 12/08/17 12/08/17 12/08/17 06:32 09:00 10:30 WBC 9.7 RBC 3.83 L Hgb 8.4 L Hct 27.0 L MCV 70.5 L MCH 21.9 L MCHC 31.1 L RDW 23.6 H RDW Differential 56.3 H Plt Count 310 MPV 10.1 Immature Gran % (Auto) Neut % (Auto) Lymph % (Auto) [place] % (Auto) Eos % (Auto) Baso % (Auto) Absolute Neuts (auto) Absolute Lymphs (auto) Total Counted Differential Comment COMMENT PT 20.0 H INR 1.7 Sodium Potassium Chloride Carbon Dioxide Anion Gap BUN Creatinine Estim Creat Clear Calc Est GFR (MDRD) Af Amer Est GFR (MDRD) Non-Af BUN/Creatinine Ratio Glucose Calcium Urine Color Urine Clarity Urine pH Ur Specific [place] Urine Protein Urine Glucose (UA) Urine Ketones Urine Occult Blood Urine Nitrite Urine Bilirubin Urine Urobilinogen Ur Leukocyte Esterase Urine RBC Urine WBC Ur Squamous Epith Cells Urine Bacteria Urine Mucus MRSA (PCR) POC Glucose 82 12/08/17 12/08/17 12/08/17 13:09 16:28 22:01 WBC RBC Hgb Hct MCV MCH MCHC RDW RDW Differential Plt Count MPV Immature Gran % (Auto) Neut % (Auto) Lymph % (Auto) [place] % (Auto) Eos % (Auto) Baso % (Auto) Absolute Neuts (auto) Absolute Lymphs (auto) Total Counted Differential Comment PT INR Sodium Potassium Chloride Carbon Dioxide Anion Gap BUN Creatinine Estim Creat Clear Calc Est GFR (MDRD) Af Amer Est GFR (MDRD) Non-Af BUN/Creatinine Ratio Glucose Calcium Urine Color Urine Clarity Urine pH Ur Specific [place] Urine Protein Urine Glucose (UA) Urine Ketones Urine Occult Blood Urine Nitrite Urine Bilirubin Urine Urobilinogen Ur Leukocyte Esterase Urine RBC Urine WBC Ur Squamous Epith Cells Urine Bacteria Urine Mucus MRSA (PCR) POC Glucose 107 154 H 155 H 12/09/17 12/09/17 12/09/17 03:16 04:00 04:00 WBC 9.9 RBC 3.50 L Hgb 7.6 L Hct 24.7 L MCV 70.6 L MCH 21.7 L MCHC 30.8 L RDW 23.2 H RDW Differential 57.9 H Plt Count 276 MPV 9.4 Immature Gran % (Auto) 0.300 Neut % (Auto) 86.9 H Lymph % (Auto) 9.4 L [place] % (Auto) 3.3 Eos % (Auto) 0.0 Baso % (Auto) 0.1 Absolute Neuts (auto) 8.6 H Absolute Lymphs (auto) 0.93 Total Counted Not Reportable Differential Comment SCANNED PT INR Sodium 138 Potassium 4.0 Chloride 107 Carbon Dioxide 24.0 Anion Gap 7 BUN 20 H Creatinine 1.06 H Estim Creat Clear Calc 40.27 Est GFR (MDRD) Af Amer 66 Est GFR (MDRD) Non-Af 54 L BUN/Creatinine Ratio 18.9 Glucose 140 H Calcium 8.3 L Urine Color Urine Clarity Urine pH Ur Specific [place] Urine Protein Urine Glucose (UA) Urine Ketones Urine Occult Blood Urine Nitrite Urine Bilirubin Urine Urobilinogen Ur Leukocyte Esterase Urine RBC Urine WBC Ur Squamous Epith Cells Urine Bacteria Urine Mucus MRSA (PCR) POC Glucose 158 H Clinical Impression(s) from Imaging Studies Chest X-Ray 12/07/17 06:27 IMPRESSION: No acute cardiopulmonary abnormalities or changes. There is stable mild enlargement of the cardiac silhouette without pulmonary edema or pleural effusion. There is minimal bibasilar atelectasis due to low volume inspiration. Electronically Signed: Christen Gold MD at 7:00 EDT Tel Direct: [phone], Service support , Chest X-Ray 12/08/17 10:33 IMPRESSION: The tip of the right PICC line catheter is at the junction of the superior vena cava and right atrium. The lungs are stable. Electronically Signed: Carlos Cai MD at 12:28 EDT Tel [phone], Service support , Medical Necessity - Tobacco Use Smoking Status: Never smoker Assessment/Plan Active and Suspected Problems (Last Updated 10/11/17 @ 09:06 by Gosia Martinez ) Lower GI bleed (Acute) Chronic A. fib on Xarelto (Acute) Recurrent falls (Acute) Generalized weakness (Acute) RECOMMENDATIONS: 1. Continue to monitor blood counts daily. 2. Transfuse 1 additional unit of packed red blood cells 3. Continue ceftriaxone for continued treatment of the patient's Klebsiella cystitis 4. Administer IV Lasix 40 mg ?1. Consider restarting outpatient Lasix regimen tomorrow. 5. Discontinue fentanyl drip and start OxyContin with as needed oxycodone. 6. Continue PPI twice daily IMPRESSIONS: 1. Blood loss anemia The patient has a baseline, chronic microcytic anemia. Her current hemoglobin is not far from what her baseline is. She is not experiencing a life- threatening gastrointestinal bleed. Her blood loss is likely secondary to her coagulopathy, precipitated by a drug interaction between Xarelto and ciprofloxacin, for which the patient was previously started on. The patient's Xarelto is now on hold. Given that she does have an underlying urinary tract infection, and her antibiotics have been transitioned to ceftriaxone. Will continue to monitor blood counts daily. The patient remains hemodynamically stable. Plan to transfuse if hemoglobin drops below 7 g/dL. Dr. Alvarado is following for potential endoscopy, which can likely be accomplished on an outpatient basis. 2. Coagulopathy/atrial fibrillation Likely secondary to interaction between ciprofloxacin and Xarelto, as the combination can lead to increased Xarelto levels, increasing the risk for bleeding. The patient did receive K Centra in the ED. We will continue to monitor blood counts accordingly. 3. Klebsiella pneumoniae cystitis Continue ceftriaxone to complete treatment course. 4. Obstructive sleep apnea Recommend continuing BiPAP 09/08 with naps and nightly. [facility] will need to be contacted prior to the patient's discharge from the hospital to address her home machine malfunction. 5. Chronic wounds/ulcers of bilateral lower extremities The patient is currently being followed in the wound care clinic and was last seen by them on December 06. The etiology for her ulcers are felt to be secondary to venous insufficiency. Continue local wound care. Fentanyl will be discontinued and the patient will be placed on long-acting OxyContin with oxycodone for breakthrough pain. 6. Obesity/chronic kidney disease/peripheral neuropathy/anxiety Complicates care, management, recovery and prognosis. Physical therapy to work with patient. This note was generated with [employer] dictation software. It may contain incorrect words, spelling, and punctuation that were not noted in checking the note before signing. Code Visit Inpatient E&M: 75716 Subs Hosp L3
[2017-12-09 07:56] LABS: Bedside Glucose 125 mg/dL (70-110)
[2017-12-09] MEDS: Furosemide 40 MG/4 ML Vial IV (08:20)
[2017-12-09] MEDS: oxyCODONE CR 15 MG Tablet PO (08:26)
[2017-12-09] MEDS: 0.9% NaCl Peripheral Flush Adult/Peds IV ×4 (08:32→22:42)
--- NOTE | 2017-12-09 09:51 | PCM.PN.HOSP ---
Patient Problems: Active and Suspected Problems (Last Updated 10/11/17 @ 09:06 by Gosia Martinez) Lower GI bleed (Acute) Chronic A. fib on Xarelto (Acute) Recurrent falls (Acute) Generalized weakness (Acute) Subjective: The patient is still had intermittent brown/port wine colored stool. Her hemoglobin has slowly drifted down from 8.6-7.69%. Platelet count is 276K. Blood pressure in low 100s. Awake and alert. Patient was treated with IV fentanyl in ICU for pain control and lower extremities. Currently on oxycodone controlled release. Vitals/I&O's: Vital Signs Temp Pulse Resp BP Pulse Ox 97.8 F 85 20 H 96/82 H 94 12/09/17 08:25 12/09/17 08:25 12/09/17 08:25 12/09/17 08:25 12/09/17 08:25 Oxygen Flow Rate (L/min) 2 Oxygen Delivery Method Nasal Cannula Weight: 194 lb 10.691 oz Body Mass Index (BMI) 33.3 Intake and Output for Last 24 Hours 12/07/17 12/08/17 12/09/17 23:59 23:59 23:59 Intake Total 2008 2048 / 2047 634 / 634 Output Total 400 / 400 1200 / 1200 565 / 565 Balance 1609 / 1609 848 / 848 69 / 69 General: Alert, Oriented x3, Cooperative HEENT: Atraumatic, PERRLA, EOMI, Normocephalic Neck: Supple, No JVD, Negative Carotid Bruits Lungs: Diminished, Rhonchi - On right lung, Wheezes Cardiovascular: Regular rate, Regular Rhythm, Normal S1, Normal S2, No murmurs Abdomen: Bowel Sounds Present, Soft, Non Tender, Non-Distended Extremities: No edema, Capillary Refill Less than 3 Seconds Skin: No rashes, No breakdown Musculoskeletal: No Tenderness to Palpation of Joints or Extremities, Arthritic Changes Neurological: Cranial nerves II-XII grossly intact, Neuro grossly intact Psych/Mental Status: Normal Affect, Appropriate Laboratory Results 12/08/17 10:30: PT 20.0 H, INR 1.7 12/08/17 13:09: POC Glucose 107 12/08/17 16:28: POC Glucose 154 H 12/08/17 22:01: POC Glucose 155 H 12/09/17 03:16: POC Glucose 158 H 12/09/17 04:00: Sodium 138, Potassium 4.0, Chloride 107, Carbon Dioxide 24.0, Anion Gap 7, BUN 20 H, Creatinine 1.06 H, Estim Creat Clear Calc 40.27, Est GFR (MDRD) Af Amer 66, Est GFR (MDRD) Non-Af 54 L, BUN/Creatinine Ratio 18.9, Glucose 140 H, Calcium 8.3 L 12/09/17 04:00: WBC 9.9, RBC 3.50 L, Hgb 7.6 L, Hct 24.7 L, MCV 70.6 L, MCH 21.7 L, MCHC 30.8 L, RDW 23.2 H, RDW Differential 57.9 H, Plt Count 276, MPV 9.4, Immature Gran % (Auto) 0.300, Neut % (Auto) 86.9 H, Lymph % (Auto) 9.4 L, [place] % (Auto) 3.3, Eos % (Auto) 0.0, Baso % (Auto) 0.1, Absolute Neuts (auto) 8.6 H, Absolute Lymphs (auto) 0.93, Total Counted Not Reportable, Differential Comment SCANNED 12/09/17 06:30: POC Glucose 125 H Current Medications Dextrose (D50w Syringe) 0 gm IV X1 PRN; Protocol PRN Reason: Hypoglycemia Glucagon () 1 mg IM .X1 PRN PRN Reason: Hypoglycemia Pantoprazole Sodium 40 mg/ (Sodium Chloride) 110 mls @ 330 mls/hr IV Q12 [facility] Last Admin: 12/08/17 22:11 Dose: 330 mls/hr Ceftriaxone Sodium (Rocephin) 1 gm in 50 mls @ 100 mls/hr IV Q24 [facility] Last Admin: 12/08/17 11:10 Dose: 100 mls/hr Insulin Aspart (Novolog Flexpen (Bkc)) 0 units SC ACHS & 3AM [facility] PRN Reason: Protocol Last Admin: 12/09/17 06:36 Dose: Not Given Magnesium Hydroxide (Milk Of Magnesia) 30 ml PO DAILY PRN PRN PRN Reason: Constipation Metoprolol Tartrate (Lopressor (Beta Brandt)) 25 mg PO BID [facility] Last Admin: 12/08/17 22:04 Dose: 25 mg Metoprolol Tartrate (Lopressor (Beta Brandt)) 5 mg IV Q6 PRN PRN Reason: HR>120/m Nutritional Formula (Lactose Free) (Glucerna Shake) 120 ml PO 4X/DAY [facility] Last Admin: 12/08/17 22:02 Dose: 120 ml Oxycodone HCl (Oxycontin) 15 mg PO DAILY [facility] Oxycodone HCl (Oxyir) 5 mg PO Q4H PRN PRN PRN Reason: BREAKTHROUGH PAIN (>4/10) Prednisone (Prednisone) 60 mg PO DAILY@0800 [facility] Last Admin: 12/09/17 08:20 Dose: 60 mg Senna/Docusate Sodium (Senokot-S, Gabriella-Colace) 2 tablet PO BID PRN PRN Reason: constipation Sodium Chloride () 5 - 30 ml IV UD PRN PRN Reason: SALINE FLUSH Last Admin: 12/09/17 08:32 Dose: 10 ml Temazepam (Restoril) 15 mg PO QHS PRN PRN PRN Reason: insomnia Last Admin: 12/07/17 23:52 Dose: 15 mg Medical Necessity - Tobacco Use Smoking Status: Never smoker Assessment/Plan Active and Suspected Problems (Last Updated 10/11/17 @ 09:06 by Gosia Martinez) Lower GI bleed (Acute) Chronic A. fib on Xarelto (Acute) Recurrent falls (Acute) Generalized weakness (Acute) The patient is a 72 year old F with multiple comorbidities including chronic heart failure with preserved EF, bilateral lower extremity pain and cellulitis, chronic A. fib on Xarelto came to ER with generalized weakness for 3-4 weeks and rectal bleed, bright red for last 1 week. Patient has been feeling progressively weak and had fall first 1 last week Monday for which she had a peña in the head in ER and then last 1 3 days ago on Monday for which she felt on the arm of the chair and has bruise on the right side of lower back. Patient did not had syncope. As per her daughter, she has been feeling weak and is not able to walk and using wheelchair which she normally does not use. Patient denies nausea vomiting or abdominal pain. She did not had recent EGD last 4-5 years but denies gastric ulcer/esophageal varices. Patient had colonoscopy by Dr. Alvarado. Patient has other significant comorbidities including peripheral arterial disease, venous stasis pulmonary hypertension and had a maze procedure. [] In ED, she was found to have hemoglobin 8.6 g percent, platelet count 2 75,000. INR was 8.0 and PTT 91.5. Patient's vital was noted, blood pressure 100/52, heart rate 94 pulse ox normal 96% on room air. Patient was admitted in ICU after K Centra given in ER. She is transferred to PCU. 1. GI bleed most probably lower GI bleed secondary to Xarelto and coupled with interaction with Cipro for which she was on for UTI: Patient was being admitted in the ICU for IV fluid resuscitation, vitals and H&H and hemodynamic monitoring and later transferred to PCU. IV fluid normal saline for resuscitation. Monitor intake/output. H&H stays between 8-9 g percent. Discussed with art museum docent Dr. Mitchell and surgeon Dr. Alvarado. IV Protonix 40 mg every 12 hourly. Start on clear liquid diet. His hemoglobin decreased to 7.6 g percent she is still having maroon colored blood about 2-3 times daily; might be residual. Will transfuse 1 unit of PRBC. 2. Acute blood loss anemia secondary to GI bleed due to Xarelto, coupled with interaction with Cipro for which she was on for UTI: As mentioned above. Continue monitoring H&H. Patient IV access. PICC/midline line is in the right arm. 3. Chronic A. fib with RVR: With RVR status post maze procedure: Currently heart rate is in 90s. On metoprolol 25 mg twice daily. Metoprolol 2.5 mg IV every 4 hourly as needed for heart rate more than 120/min. 4. Capsular pneumoniae cystitis:urine culture shows Klebsiella pneumoniae on 12/01/2017, sensitive to Junior. Currently patient is on IV Rocephin. Chronic heart failure with preserved EF, peripheral arterial disease, bilateral lower extremity venous stasis venous ulcer; chronic in nature, present on admission: Stable. Last 2D echo from May 2015 shows EF 50% with mild concentric LVH. RVSP 44 mmHg. 5. Diabetes mellitus type 2: On Accu-Chek every 6 hours and cover with NovoLog sliding scale. 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 There is blackening of his skin and violaceous one margin with extreme tenderness suggestive of pyoderma gangrenosum. On discussion with my colleague, started on prednisone 60 mg daily. Wound care and dressing recommendation as per wound nurse, Kate. The patient was initially treated with IV fentanyl and then later transitioned to oxycodone controlled release. Avoid excessive dose opioids as the blood pressure is also on the lower side. other chronic comorbidities include chronic kidney disease stage III, lumbar spinal stenosis with radiculopathy, soft tissue mass of right and left lower extremity due to calciphylaxis versus erythema nodosum versus panniculitis, chronic lung nodule, hypertension and history of recent cellulitis with last admission in September 2017. Multiple comorbidities complicates the present care and prolongs hospital stay and possible delayed recovery. DVT prophylaxis: On bilateral SCDs. Pharmacological prophylaxis contraindicated. Microbiology Past 72 Hours 12/07/17 06:50 Stool Stool Occult Blood ([facility]) - Final Occult Blood Positive Laboratory Results 12/07/17 07:35: Crossmatch See Detail 12/08/17 10:30: PT 20.0 H, INR 1.7 12/08/17 13:09: POC Glucose 107 12/08/17 16:28: POC Glucose 154 H 12/08/17 22:01: POC Glucose 155 H 12/09/17 03:16: POC Glucose 158 H 12/09/17 04:00: Sodium 138, Potassium 4.0, Chloride 107, Carbon Dioxide 24.0, Anion Gap 7, BUN 20 H, Creatinine 1.06 H, Estim Creat Clear Calc 40.27, Est GFR (MDRD) Af Amer 66, Est GFR (MDRD) Non-Af 54 L, BUN/Creatinine Ratio 18.9, Glucose 140 H, Calcium 8.3 L 12/09/17 04:00: WBC 9.9, RBC 3.50 L, Hgb 7.6 L, Hct 24.7 L, MCV 70.6 L, MCH 21.7 L, MCHC 30.8 L, RDW 23.2 H, RDW Differential 57.9 H, Plt Count 276, MPV 9.4, Immature Gran % (Auto) 0.300, Neut % (Auto) 86.9 H, Lymph % (Auto) 9.4 L, [place] % (Auto) 3.3, Eos % (Auto) 0.0, Baso % (Auto) 0.1, Absolute Neuts (auto) 8.6 H, Absolute Lymphs (auto) 0.93, Total Counted Not Reportable, Differential Comment SCANNED 12/09/17 06:30: POC Glucose 125 H Microbiology Past 72 Hours 12/07/17 06:50 Stool Stool Occult Blood (ELENITA) - Final Occult Blood Positive Laboratory Results 12/07/17 07:30: Sodium 135 L, Potassium 5.3 H, Chloride 108 H, Carbon Dioxide 17.0 L, Anion Gap 10, BUN 33 H, Creatinine 1.53 H, Estim Creat Clear Calc 29.12, Est GFR (MDRD) Af Amer 43 L, Est GFR (MDRD) Non-Af 36 L, BUN/Creatinine Ratio 21.6 H, Glucose 108 H, Calcium 8.8, Troponin I < 0.02 12/07/17 07:35: PT 68.1 H, INR 8.0 H*, APTT 91.5 H* 12/07/17 07:35: Lactic Acid 1.4 12/07/17 07:35: Blood Type A POSITIVE, Antibody Screen NEGATIVE 12/07/17 07:35: WBC 12.5 H, RBC 3.97 L, Hgb 8.6 L, Hct 28.1 L, MCV 70.8 L, MCH 21.7 L, MCHC 30.6 L, RDW 23.0 H, RDW Differential 57.9 H, Plt Count 275, MPV 9.8, Immature Gran % (Auto) 0.400, Neut % (Auto) 83.6 H, Lymph % (Auto) 8.3 L, [place] % (Auto) 6.9, Eos % (Auto) 0.6, Baso % (Auto) 0.2, Absolute Neuts (auto) 10.5 H, Absolute Lymphs (auto) 1.04, Total Counted Not Reportable, Differential Comment COMMENT Code Visit Inpatient E&M: 15685 Subs Hosp L3
--- NOTE | 2017-12-09 10:03 | PN_ITS ---
Patient Problems: Active and Suspected Problems (Last Updated 10/11/17 @ 09:06 by Gosia Martinez ) Lower GI bleed (Acute) Chronic A. fib on Xarelto (Acute) Recurrent falls (Acute) Generalized weakness (Acute) Subjective: The patient is still had intermittent brown/port wine colored stool. Her hemoglobin has slowly drifted down from 8.6-7.69%. Platelet count is 276K. Blood pressure in low 100s. Awake and alert. Patient was treated with IV fentanyl in ICU for pain control and lower extremities. Currently on oxycodone controlled release. Vitals/I&O's: Vital Signs Temp Pulse Resp BP Pulse Ox 97.8 F 85 20 H 96/82 H 94 12/09/17 08:25 12/09/17 08:25 12/09/17 08:25 12/09/17 08:25 12/09/17 08:25 Oxygen Flow Rate (L/min) 2 Oxygen Delivery Method Nasal Cannula Weight: 194 lb 10.691 oz Body Mass Index (BMI) 33.3 Intake and Output for Last 24 Hours 12/07/17 12/08/17 12/09/17 23:59 23:59 23:59 Intake Total 2008 2048 / 2047 634 / 634 Output Total 400 / 400 1200 / 1200 565 / 565 Balance 1609 / 1609 848 / 848 69 / 69 General: Alert, Oriented x3, Cooperative HEENT: Atraumatic, PERRLA, EOMI, Normocephalic Neck: Supple, No JVD, Negative Carotid Bruits Lungs: Diminished, Rhonchi - On right lung, Wheezes Cardiovascular: Regular rate, Regular Rhythm, Normal S1, Normal S2, No murmurs Abdomen: Bowel Sounds Present, Soft, Non Tender, Non-Distended Extremities: No edema, Capillary Refill Less than 3 Seconds Skin: No rashes, No breakdown Musculoskeletal: No Tenderness to Palpation of Joints or Extremities, Arthritic Changes Neurological: Cranial nerves II-XII grossly intact, Neuro grossly intact Psych/Mental Status: Normal Affect, Appropriate Laboratory Results 12/08/17 10:30: PT 20.0 H, INR 1.7 12/08/17 13:09: POC Glucose 107 12/08/17 16:28: POC Glucose 154 H 12/08/17 22:01: POC Glucose 155 H 12/09/17 03:16: POC Glucose 158 H 12/09/17 04:00: Sodium 138, Potassium 4.0, Chloride 107, Carbon Dioxide 24.0, Anion Gap 7, BUN 20 H, Creatinine 1.06 H, Estim Creat Clear Calc 40.27, Est GFR (MDRD) Af Amer 66, Est GFR (MDRD) Non-Af 54 L, BUN/Creatinine Ratio 18.9, Glucose 140 H, Calcium 8.3 L 12/09/17 04:00: WBC 9.9, RBC 3.50 L, Hgb 7.6 L, Hct 24.7 L, MCV 70.6 L, MCH 21.7 L, MCHC 30.8 L, RDW 23.2 H, RDW Differential 57.9 H, Plt Count 276, MPV 9.4 , Immature Gran % (Auto) 0.300, Neut % (Auto) 86.9 H, Lymph % (Auto) 9.4 L, [place] % (Auto) 3.3, Eos % (Auto) 0.0, Baso % (Auto) 0.1, Absolute Neuts (auto) 8.6 H, Absolute Lymphs (auto) 0.93, Total Counted Not Reportable, Differential Comment SCANNED 12/09/17 06:30: POC Glucose 125 H Current Medications Dextrose (D50w Syringe) 0 gm IV X1 PRN; Protocol PRN Reason: Hypoglycemia Glucagon () 1 mg IM .X1 PRN PRN Reason: Hypoglycemia Pantoprazole Sodium 40 mg/ (Sodium Chloride) 110 mls @ 330 mls/hr IV Q12 [facility] Last Admin: 12/08/17 22:11 Dose: 330 mls/hr Ceftriaxone Sodium (Rocephin) 1 gm in 50 mls @ 100 mls/hr IV Q24 [facility] Last Admin: 12/08/17 11:10 Dose: 100 mls/hr Insulin Aspart (Novolog Flexpen (Bkc)) 0 units SC ACHS & 3AM [facility] PRN Reason: Protocol Last Admin: 12/09/17 06:36 Dose: Not Given Magnesium Hydroxide (Milk Of Magnesia) 30 ml PO DAILY PRN PRN PRN Reason: Constipation Metoprolol Tartrate (Lopressor (Beta Brandt)) 25 mg PO BID [facility] Last Admin: 12/08/17 22:04 Dose: 25 mg Metoprolol Tartrate (Lopressor (Beta Brandt)) 5 mg IV Q6 PRN PRN Reason: HR>120/m Nutritional Formula (Lactose Free) (Glucerna Shake) 120 ml PO 4X/DAY [facility] Last Admin: 12/08/17 22:02 Dose: 120 ml Oxycodone HCl (Oxycontin) 15 mg PO DAILY [facility] Oxycodone HCl (Oxyir) 5 mg PO Q4H PRN PRN PRN Reason: BREAKTHROUGH PAIN (>4/10) Prednisone (Prednisone) 60 mg PO DAILY@0800 [facility] Last Admin: 12/09/17 08:20 Dose: 60 mg Senna/Docusate Sodium (Senokot-S, Gabriella-Colace) 2 tablet PO BID PRN PRN Reason: constipation Sodium Chloride () 5 - 30 ml IV UD PRN PRN Reason: SALINE FLUSH Last Admin: 12/09/17 08:32 Dose: 10 ml Temazepam (Restoril) 15 mg PO QHS PRN PRN PRN Reason: insomnia Last Admin: 12/07/17 23:52 Dose: 15 mg Medical Necessity - Tobacco Use Smoking Status: Never smoker Assessment/Plan Active and Suspected Problems (Last Updated 10/11/17 @ 09:06 by Gosia Martinez ) Lower GI bleed (Acute) Chronic A. fib on Xarelto (Acute) Recurrent falls (Acute) Generalized weakness (Acute) The patient is a 72 year old F with multiple comorbidities including chronic heart failure with preserved EF, bilateral lower extremity pain and cellulitis, chronic A. fib on Xarelto came to ER with generalized weakness for 3-4 weeks and rectal bleed, bright red for last 1 week. Patient has been feeling progressively weak and had fall first 1 last week Monday for which she had a peña in the head in ER and then last 1 3 days ago on Monday for which she felt on the arm of the chair and has bruise on the right side of lower back. Patient did not had syncope. As per her daughter, she has been feeling weak and is not able to walk and using wheelchair which she normally does not use. Patient denies nausea vomiting or abdominal pain. She did not had recent EGD last 4-5 years but denies gastric ulcer/esophageal varices. Patient had colonoscopy by Dr. Alvarado. Patient has other significant comorbidities including peripheral arterial disease, venous stasis pulmonary hypertension and had a maze procedure. [] In ED, she was found to have hemoglobin 8.6 g percent, platelet count 2 75,000. INR was 8.0 and PTT 91.5. Patient's vital was noted, blood pressure 100/52, heart rate 94 pulse ox normal 96% on room air. Patient was admitted in ICU after K Centra given in ER. She is transferred to PCU. 1. GI bleed most probably lower GI bleed secondary to Xarelto and coupled with interaction with Cipro for which she was on for UTI: Patient was being admitted in the ICU for IV fluid resuscitation, vitals and H&H and hemodynamic monitoring and later transferred to PCU. IV fluid normal saline for resuscitation. Monitor intake/output. H&H stays between 8-9 g percent. Discussed with director electronics Dr. Mitchell and surgeon Dr. Alvarado. IV Protonix 40 mg every 12 hourly. Start on clear liquid diet. His hemoglobin decreased to 7.6 g percent she is still having maroon colored blood about 2-3 times daily; might be residual. Will transfuse 1 unit of PRBC. 2. Acute blood loss anemia secondary to GI bleed due to Xarelto, coupled with interaction with Cipro for which she was on for UTI: As mentioned above. Continue monitoring H&H. Patient IV access. PICC/midline line is in the right arm. 3. Chronic A. fib with RVR: With RVR status post maze procedure: Currently heart rate is in 90s. On metoprolol 25 mg twice daily. Metoprolol 2.5 mg IV every 4 hourly as needed for heart rate more than 120/min. 4. Capsular pneumoniae cystitis:urine culture shows Klebsiella pneumoniae on 12/01/2017, sensitive to Junior. Currently patient is on IV Rocephin. Chronic heart failure with preserved EF, peripheral arterial disease, bilateral lower extremity venous stasis venous ulcer; chronic in nature, present on admission: Stable. Last 2D echo from May 2015 shows EF 50% with mild concentric LVH. RVSP 44 mmHg. 5. Diabetes mellitus type 2: On Accu-Chek every 6 hours and cover with NovoLog sliding scale. 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 There is blackening of his skin and violaceous one margin with extreme tenderness suggestive of pyoderma gangrenosum. On discussion with my colleague, started on prednisone 60 mg daily. Wound care and dressing recommendation as per wound nurse, Kate. The patient was initially treated with IV fentanyl and then later transitioned to oxycodone controlled release. Avoid excessive dose opioids as the blood pressure is also on the lower side. other chronic comorbidities include chronic kidney disease stage III, lumbar spinal stenosis with radiculopathy, soft tissue mass of right and left lower extremity due to calciphylaxis versus erythema nodosum versus panniculitis, chronic lung nodule, hypertension and history of recent cellulitis with last admission in September 2017. Multiple comorbidities complicates the present care and prolongs hospital stay and possible delayed recovery. DVT prophylaxis: On bilateral SCDs. Pharmacological prophylaxis contraindicated. Microbiology Past 72 Hours 12/07/17 06:50 Stool Stool Occult Blood ([facility]) - Final Occult Blood Positive Laboratory Results 12/07/17 07:35: Crossmatch See Detail 12/08/17 10:30: PT 20.0 H, INR 1.7 12/08/17 13:09: POC Glucose 107 12/08/17 16:28: POC Glucose 154 H 12/08/17 22:01: POC Glucose 155 H 12/09/17 03:16: POC Glucose 158 H 12/09/17 04:00: Sodium 138, Potassium 4.0, Chloride 107, Carbon Dioxide 24.0, Anion Gap 7, BUN 20 H, Creatinine 1.06 H, Estim Creat Clear Calc 40.27, Est GFR (MDRD) Af Amer 66, Est GFR (MDRD) Non-Af 54 L, BUN/Creatinine Ratio 18.9, Glucose 140 H, Calcium 8.3 L 12/09/17 04:00: WBC 9.9, RBC 3.50 L, Hgb 7.6 L, Hct 24.7 L, MCV 70.6 L, MCH 21.7 L, MCHC 30.8 L, RDW 23.2 H, RDW Differential 57.9 H, Plt Count 276, MPV 9.4 , Immature Gran % (Auto) 0.300, Neut % (Auto) 86.9 H, Lymph % (Auto) 9.4 L, [place] % (Auto) 3.3, Eos % (Auto) 0.0, Baso % (Auto) 0.1, Absolute Neuts (auto) 8.6 H, Absolute Lymphs (auto) 0.93, Total Counted Not Reportable, Differential Comment SCANNED 12/09/17 06:30: POC Glucose 125 H Microbiology Past 72 Hours 12/07/17 06:50 Stool Stool Occult Blood (ELENITA) - Final Occult Blood Positive Laboratory Results 12/07/17 07:30: Sodium 135 L, Potassium 5.3 H, Chloride 108 H, Carbon Dioxide 17.0 L, Anion Gap 10, BUN 33 H, Creatinine 1.53 H, Estim Creat Clear Calc 29.12 , Est GFR (MDRD) Af Amer 43 L, Est GFR (MDRD) Non-Af 36 L, BUN/Creatinine Ratio 21.6 H, Glucose 108 H, Calcium 8.8, Troponin I < 0.02 12/07/17 07:35: PT 68.1 H, INR 8.0 H*, APTT 91.5 H* 12/07/17 07:35: Lactic Acid 1.4 12/07/17 07:35: Blood Type A POSITIVE, Antibody Screen NEGATIVE 12/07/17 07:35: WBC 12.5 H, RBC 3.97 L, Hgb 8.6 L, Hct 28.1 L, MCV 70.8 L, MCH 21.7 L, MCHC 30.6 L, RDW 23.0 H, RDW Differential 57.9 H, Plt Count 275, MPV 9.8 , Immature Gran % (Auto) 0.400, Neut % (Auto) 83.6 H, Lymph % (Auto) 8.3 L, [place] % (Auto) 6.9, Eos % (Auto) 0.6, Baso % (Auto) 0.2, Absolute Neuts (auto) 10.5 H, Absolute Lymphs (auto) 1.04, Total Counted Not Reportable, Differential Comment COMMENT Code Visit Inpatient E&M: 22179 Subs Hosp L3
[2017-12-09 10:15] LABS: Bedside Glucose 90 mg/dL (70-110)
[2017-12-09] MEDS: Metoprolol Tartrate 25 MG Tablet PO ×2 (10:56→22:02)
[2017-12-09] MEDS: Ceftriaxone 1 GM/50 mL Premix Q24 IV (10:56)
[2017-12-09] MEDS: Glucerna Shake 120 ML LIQUID PO ×2 (11:55→15:51)
[2017-12-09] MEDS: oxyCODONE 5 MG Tablet PO ×3 (13:13→22:00)
--- NOTE | 2017-12-09 13:34 | CASEMGMT ---
FUENTES met with patient as she is a max assist of 2. FUENTES asked her if her plan is home or if she feels she should go somewhere for some rehab. She said she plans on going home. She said she really cannot afford to go anywhere. FUENTES told her SW will follow up with her Monday if she is still here. Kaylah SALGADO MSW
[2017-12-09 15:51] LABS: Bedside Glucose 175 mg/dL (70-110)
[2017-12-09 22:21] LABS: Bedside Glucose 149 mg/dL (70-110)
[2017-12-10] VITALS (13 sets, daily range): BP systolic 117–132; BP diastolic 54–73; PULSE 79–102; RESP 16; TEMP 36.3–36.6; O2SAT 93–98
--- NOTE | 2017-12-10 00:35 | CPS ---
PT REFUSING BIPAP
[2017-12-10 03:56] LABS: Bedside Glucose 110 mg/dL (70-110)
[2017-12-10] MEDS: oxyCODONE 5 MG Tablet PO ×3 (03:56→18:37)
[2017-12-10] MEDS: 0.9% NaCl Peripheral Flush Adult/Peds IV ×3 (04:50→21:28)
[2017-12-10 05:16] LABS: Anion Gap 7 (5-15); BUN 18 mg/dL (7-18); Calcium,Total 8.3 mg/dL (8.5-10.1); Chloride 105 mmol/L (98-107); EST Glomerular Filtration Rate 58 mL/min (>60); Est Glom Filt Rate - Afr Amer 70 mL/min (>60); Estimated Creatinine Clearance 42.68 ml/min; Glucose 101 mg/dL (74-106); Potassium 3.5 mmol/L (3.5-5.1); Sodium Level 140 mmol/L (136-145)
[2017-12-10] MEDS: Gabapentin 100 MG Capsule PO ×4 (06:43→21:22)
[2017-12-10 06:50] LABS: Bedside Glucose 96 mg/dL (70-110)
--- NOTE | 2017-12-10 07:01 | PN_ITS ---
Patient Problems: Active and Suspected Problems (Last Updated 10/11/17 @ 09:06 by Gosia Martinez ) Lower GI bleed (Acute) Chronic A. fib on Xarelto (Acute) Recurrent falls (Acute) Generalized weakness (Acute) Subjective: The patient was seen and examined at the bedside this morning. Events from the last 24 hours have been reviewed. The patient is currently afebrile, hemodynamically stable and maintaining appropriate oxygen saturations on room air. The patient refused to wear BiPAP overnight. The patient was overall net -828 mL's yesterday. Hemoglobin is stable this morning at 8.7. She denies shortness of breath or abdominal pain. Objective: The patient's most recent lab work, culture data and imaging studies have all been personally reviewed. The patient's last surface echocardiogram from May 2015 revealed mild concentric LVH with an ejection fraction of 50%. Pulmonary artery systolic pressure was estimated to be 44 mmHg. Urine culture dated December 01 was positive for the presence of Klebsiella pneumoniae. Stool for occult blood was positive on December 07. - Physical Exam General: Alert, Cooperative, No apparent distress HEENT: Atraumatic, PERRLA, Normocephalic Oral: No Gingival or Mucosal Lesions/ Ulcerations Neck: Supple, No Nodes, Trachea Midline Lungs: No rhonchi, No wheeze, Diminished, Rales Cardiovascular: Normal S1, Normal S2, No murmurs, Irregular Rate Abdomen: Bowel Sounds Present, Soft, Non Tender Extremities: No clubbing, No cyanosis, Edema Skin: - - Chronic lower extremity wounds, currently wrapped, present on admission Musculoskeletal: No Muscle Wasting Lymphatic: No Cervical, Supraclavicular, or Inguinal Adenopathy Neurological: Neuro grossly intact Psych/Mental Status: Normal Affect, Appropriate Vital Signs Temp Pulse Resp BP Pulse Ox 97.8 F 79 16 125/73 H 98 12/10/17 03:40 12/10/17 03:40 12/10/17 03:40 12/10/17 03:40 12/10/17 03:40 Oxygen Flow Rate (L/min) 2 Oxygen Delivery Method Room Air Weight: 194 lb 3.636 oz Body Mass Index (BMI) 33.3 Intake and Output for Last 24 Hours 12/08/17 12/09/17 12/10/17 23:59 23:59 23:59 Intake Total 2048 / 2048 2687 / 2687 100 / 100 Output Total 1200 / 1200 3515 / 3515 250 / 250 Balance 848 / 848 -828 / -828 -150 / -150 Laboratory Tests Past 24 Hrs 12/10/17 04:50 Sodium 140 Potassium 3.5 Chloride 105 Carbon Dioxide 28.0 Anion Gap 7 BUN 18 Creatinine 1.00 Estim Creat Clear Calc 42.68 Est GFR (MDRD) Af Amer 70 Est GFR (MDRD) Non-Af 58 L BUN/Creatinine Ratio 18.0 Glucose 101 Calcium 8.3 L POC Glucose 12/10/17 12/10/17 12/09/17 06:42 03:47 22:08 POC Glucose 96 110 149 H 12/09/17 12/09/17 12/09/17 15:48 10:11 06:30 POC Glucose 175 H 90 125 H Clinical Impression(s) from Imaging Studies Chest X-Ray 12/07/17 06:27 IMPRESSION: No acute cardiopulmonary abnormalities or changes. There is stable mild enlargement of the cardiac silhouette without pulmonary edema or pleural effusion. There is minimal bibasilar atelectasis due to low volume inspiration. Electronically Signed: Christen Gold MD at 7:00 EDT Tel Direct: [phone], Service support , Chest X-Ray 12/08/17 10:33 IMPRESSION: The tip of the right PICC line catheter is at the junction of the superior vena cava and right atrium. The lungs are stable. Electronically Signed: Carlos Cai MD at 12:28 EDT Tel [phone], Service support , Medical Necessity - Tobacco Use Smoking Status: Never smoker Assessment/Plan Active and Suspected Problems (Last Updated 10/11/17 @ 09:06 by Gosia Martinez ) Lower GI bleed (Acute) Chronic A. fib on Xarelto (Acute) Recurrent falls (Acute) Generalized weakness (Acute) RECOMMENDATIONS: 1. Continue to monitor blood counts daily. 2. Continue ceftriaxone for continued treatment of the patient's Klebsiella cystitis 3. Consider restarting outpatient Lasix regimen. 4. Continue OxyContin with as needed oxycodone. 5. Continue PPI twice daily 6. Would defer to cardiology with regards to which anticoagulant they prefer to have the patient on (i.e Coumadin vs NOAC) IMPRESSIONS: 1. Blood loss anemia The patient has a baseline, chronic microcytic anemia. Although the patient presented to the hospital with mild blood loss anemia, she was not experiencing a life-threatening GI bleed. Her blood loss was likely secondary to her coagulopathy, precipitated by a drug interaction between Xarelto and ciprofloxacin, for which the patient was previously started on. The patient's Xarelto is now on hold. Given that she does have an underlying urinary tract infection, her antibiotics have been transitioned to ceftriaxone. Will continue to monitor blood counts daily. The patient remains hemodynamically stable. Plan to transfuse if hemoglobin drops below 7 g/dL. Dr. Alvarado saw the patient and recommended outpatient endoscopy and follow-up. 2. Coagulopathy/atrial fibrillation Likely secondary to interaction between ciprofloxacin and Xarelto, as the combination can lead to increased Xarelto levels, increasing the risk for bleeding. The patient did receive K Centra in the ED. We will continue to monitor blood counts accordingly. 3. Klebsiella pneumoniae cystitis Continue ceftriaxone to complete treatment course. 4. Obstructive sleep apnea Recommend continuing BiPAP 09/08 with naps and nightly. [facility] will need to be contacted prior to the patient's discharge from the hospital to address her home machine malfunction. The patient has been noncompliant with use of BiPAP while in the hospital. Strongly suspect outpatient noncompliance with use. 5. Chronic wounds/ulcers of bilateral lower extremities The patient is currently being followed in the wound care clinic and was last seen by them on December 06. The etiology for her ulcers are felt to be secondary to venous insufficiency. Continue local wound care. Continue long-acting OxyContin with oxycodone for breakthrough pain. 6. Obesity/chronic kidney disease/peripheral neuropathy/anxiety Complicates care, management, recovery and prognosis. Physical therapy to continue to work with patient. This note was generated with [employer] dictation software. It may contain incorrect words, spelling, and punctuation that were not noted in checking the note before signing. Code Visit Inpatient E&M: 27680 Subs Hosp L2
[2017-12-10 07:37] LABS: Absolute Lymphocyte Count 1.15 X10^3/ul (0.83-4.51); Absolute Neutrophil Count 9.4 X10^3/uL (2.0-7.7); Hemoglobin 8.7 g/dl (12.0-15.0); Lymphocyte # 1.15 X10^3/ul (4.0); Mean Corp Hgb Conc 31.1 g/gl (32-36); Mean Corpuscular Hgb 22.9 pg (27.0-32.0); Mean Corpuscular Volume 73.7 fL (81-99); Mean Platelet Vol. 9.7 fl (6.2-12.0); Monocyte% 7.8 % (0-10); Neutrophil # 9.39 X10^3/uL (2.7-7.7); Neutrophil % 81.9 % (47-70); Platelet Count 287 K/mm3 (150-450); RBC Distribution Width CV 24.2 % (11.6-14.6); RBC Distribution Width SD 62.6 fl (35.1-43.9); White Blood Count 11.5 K/mm3 (4.4-11.0)
[2017-12-10 07:38] LABS: Differential Indicated SCAN CRITERIA MET; POSITIVE COUNT NO; POSITIVE DIFFERENTIAL NO; POSITIVE MORPHOLOGY YES
[2017-12-10 07:54] LABS: Anisocytosis 2+; Hypochromasia 2+; Platelet Estimate ADEQUATE (ADEQ); Target Cells RARE
[2017-12-10] MEDS: FLUoxetine 20 MG Capsule PO (09:22)
[2017-12-10] MEDS: morphine SR 15 MG Tablet PO (09:22)
[2017-12-10] MEDS: oxyCODONE CR 15 MG Tablet PO (09:22)
[2017-12-10] MEDS: Metoprolol Tartrate 25 MG Tablet PO ×2 (09:22→21:22)
[2017-12-10] MEDS: Glucerna Shake 120 ML LIQUID PO ×2 (09:23→21:27)
[2017-12-10] MEDS: Ceftriaxone 1 GM/50 mL Premix Q24 IV (09:33)
--- NOTE | 2017-12-10 11:17 | PCM.PN.HOSP ---
Patient Problems: Active and Suspected Problems (Last Updated 10/11/17 @ 09:06 by Gosia Martinez) Lower GI bleed (Acute) Chronic A. fib on Xarelto (Acute) Recurrent falls (Acute) Generalized weakness (Acute) Subjective: Patient feels stronger and better after blood transfusion. Hemoglobin 8.7 g percent. Lower extremity pain more than yesterday as fentanyl was discontinued and oxycodone was added Objective: General: Alert, Oriented x3, Cooperative HEENT: Atraumatic, PERRLA, EOMI, Normocephalic Neck: Supple, No JVD, Negative Carotid Bruits Lungs: Diminished, Rhonchi - On right lung, Wheezes Cardiovascular: Regular rate, Regular Rhythm, Normal S1, Normal S2, No murmurs Abdomen: Bowel Sounds Present, Soft, Non Tender, Non-Distended Extremities: No edema, Capillary Refill Less than 3 Seconds Skin: No rashes, No breakdown Musculoskeletal: No Tenderness to Palpation of Joints or Extremities, Arthritic Changes Neurological: Cranial nerves II-XII grossly intact, Neuro grossly intact Psych/Mental Status: Normal Affect, Appropriate Vitals/I&O's: Vital Signs Temp Pulse Resp BP Pulse Ox 97.6 F L 85 16 124/54 H 94 12/10/17 09:20 12/10/17 09:22 12/10/17 09:20 12/10/17 09:20 12/10/17 09:20 Oxygen Flow Rate (L/min) 2 Oxygen Delivery Method Room Air Weight: 194 lb 3.636 oz Body Mass Index (BMI) 33.3 Intake and Output for Last 24 Hours 12/08/17 12/09/17 12/10/17 23:59 23:59 23:59 Intake Total 2048 / 2048 2687 / 2687 100 / 100 Output Total 1200 / 1200 3515 / 3515 250 / 250 Balance 848 / 848 -828 / -828 -150 / -150 Laboratory Results 12/09/17 15:48: POC Glucose 175 H 12/09/17 22:08: POC Glucose 149 H 12/10/17 03:47: POC Glucose 110 12/10/17 04:50: Sodium 140, Potassium 3.5, Chloride 105, Carbon Dioxide 28.0, Anion Gap 7, BUN 18, Creatinine 1.00, Estim Creat Clear Calc 42.68, Est GFR (MDRD) Af Amer 70, Est GFR (MDRD) Non-Af 58 L, BUN/Creatinine Ratio 18.0, Glucose 101, Calcium 8.3 L 12/10/17 04:50: WBC 11.5 H, RBC 3.80 L, Hgb 8.7 L, Hct 28.0 L, MCV 73.7 L, MCH 22.9 L, MCHC 31.1 L, RDW 24.2 H, RDW Differential 62.6 H, Plt Count 287, MPV 9.7, Immature Gran % (Auto) 0.300, Neut % (Auto) 81.9 H, Lymph % (Auto) 10.0 L, [place] % (Auto) 7.8, Eos % (Auto) 0.0, Baso % (Auto) 0.0, Absolute Neuts (auto) 9.4 H, Absolute Lymphs (auto) 1.15, Total Counted Not Reportable, Platelet Estimate ADEQUATE, Hypochromasia 2+, Anisocytosis 2+, Target Cells RARE 12/10/17 06:42: POC Glucose 96 Current Medications Dextrose (D50w Syringe) 0 gm IV X1 PRN; Protocol PRN Reason: Hypoglycemia Fluoxetine HCl (Prozac) 20 mg PO DAILY [facility] Last Admin: 12/10/17 09:22 Dose: 20 mg Gabapentin (Neurontin) 100 mg PO ACHS [facility] Last Admin: 12/10/17 06:43 Dose: 100 mg Glucagon () 1 mg IM .X1 PRN PRN Reason: Hypoglycemia Pantoprazole Sodium 40 mg/ (Sodium Chloride) 110 mls @ 330 mls/hr IV Q12 [facility] Last Admin: 12/10/17 09:22 Dose: 330 mls/hr Ceftriaxone Sodium (Rocephin) 1 gm in 50 mls @ 100 mls/hr IV Q24 [facility] Last Admin: 12/10/17 09:33 Dose: 100 mls/hr Insulin Aspart (Novolog Flexpen (Bkc)) 0 units SC ACHS & 3AM BULMARO PRN Reason: Protocol Last Admin: 12/10/17 06:43 Dose: Not Given Magnesium Hydroxide (Milk Of Magnesia) 30 ml PO DAILY PRN PRN PRN Reason: Constipation Metoprolol Tartrate (Lopressor (Beta Brandt)) 25 mg PO BID [facility] Last Admin: 12/10/17 09:22 Dose: 25 mg Metoprolol Tartrate (Lopressor (Beta Brandt)) 5 mg IV Q6 PRN PRN Reason: HR>120/m Morphine Sulfate (Ms Contin) 15 mg PO DAILY [facility] Last Admin: 12/10/17 09:22 Dose: 15 mg Nutritional Formula (Lactose Free) (Glucerna Shake) 120 ml PO 4X/DAY [facility] Last Admin: 12/10/17 09:23 Dose: 120 ml Oxycodone HCl (Oxycontin) 15 mg PO DAILY [facility] Last Admin: 12/10/17 09:22 Dose: 15 mg Oxycodone HCl (Oxyir) 5 mg PO Q4H PRN PRN PRN Reason: BREAKTHROUGH PAIN (>4/10) Last Admin: 12/10/17 03:56 Dose: 5 mg Prednisone (Prednisone) 60 mg PO DAILY@0800 [facility] Last Admin: 12/10/17 09:21 Dose: 60 mg Senna/Docusate Sodium (Senokot-S, Gabriella-Colace) 2 tablet PO BID PRN PRN Reason: constipation Sodium Chloride () 5 - 30 ml IV UD PRN PRN Reason: SALINE FLUSH Last Admin: 12/10/17 04:50 Dose: 20 ml Temazepam (Restoril) 15 mg PO QHS PRN PRN PRN Reason: insomnia Last Admin: 12/07/17 23:52 Dose: 15 mg Medical Necessity - Tobacco Use Smoking Status: Never smoker Assessment/Plan Active and Suspected Problems (Last Updated 10/11/17 @ 09:06 by Gosia Martinez) Lower GI bleed (Acute) Chronic A. fib on Xarelto (Acute) Recurrent falls (Acute) Generalized weakness (Acute) The patient is a 72 year old F with multiple comorbidities including chronic heart failure with preserved EF, bilateral lower extremity pain and cellulitis, chronic A. fib on Xarelto came to ER with generalized weakness for 3-4 weeks and rectal bleed, bright red for last 1 week. Patient has been feeling progressively weak and had fall first 1 last week Monday for which she had a peña in the head in ER and then last 1 3 days ago on Monday for which she felt on the arm of the chair and has bruise on the right side of lower back. Patient did not had syncope. As per her daughter, she has been feeling weak and is not able to walk and using wheelchair which she normally does not use. Patient denies nausea vomiting or abdominal pain. She did not had recent EGD last 4-5 years but denies gastric ulcer/esophageal varices. Patient had colonoscopy by Dr. Alvarado. Patient has other significant comorbidities including peripheral arterial disease, venous stasis pulmonary hypertension and had a maze procedure. [] In ED, she was found to have hemoglobin 8.6 g percent, platelet count 2 75,000. INR was 8.0 and PTT 91.5. Patient's vital was noted, blood pressure 100/52, heart rate 94 pulse ox normal 96% on room air. Patient was admitted in ICU after K Centra given in ER. She is transferred to PCU. 1. GI bleed most probably lower GI bleed secondary to Xarelto and coupled with interaction with Cipro for which she was on for UTI: Patient was being admitted in the ICU for IV fluid resuscitation, vitals and H&H and hemodynamic monitoring and later transferred to PCU. IV fluid normal saline for resuscitation. Monitor intake/output. H&H stays between 8-9 g percent. Discussed with automatic profile sander operator Dr. Mitchell and surgeon Dr. Alvarado. On soft diet. Protonix 40 mg daily. 1 unit of PRBC transfused and hemoglobin 8.7 g percent. 2. Acute blood loss anemia secondary to GI bleed due to Xarelto, coupled with interaction with Cipro for which she was on for UTI: As mentioned above. Continue monitoring H&H. Patient IV access. PICC/midline line is in the right arm. 3. Chronic A. fib with RVR: With RVR status post maze procedure: Heart rate is controlled. On metoprolol 25 mg twice daily. Metoprolol 2.5 mg IV every 4 hourly as needed for heart rate more than 120/min. 4. Capsular pneumoniae cystitis:urine culture shows Klebsiella pneumoniae on 12/01/2017, sensitive to Junior. Currently patient is on IV Rocephin. Chronic heart failure with preserved EF, peripheral arterial disease, bilateral lower extremity venous stasis venous ulcer; chronic in nature, present on admission: Stable. Last 2D echo from May 2015 shows EF 50% with mild concentric LVH. RVSP 44 mmHg. 5. Diabetes mellitus type 2: On Accu-Chek every 6 hours and cover with NovoLog sliding scale. 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 There is blackening of his skin and violaceous one margin with extreme tenderness suggestive of pyoderma gangrenosum. On discussion with my colleague, started on prednisone 60 mg daily. Wound care and dressing recommendation as per wound nurse, Kate. The patient was initially treated with IV fentanyl and then later transitioned to oxycodone controlled release. Avoid excessive dose opioids as the blood pressure is also on the lower side. Patient does not want to go SNF. On physical therapy. C other chronic comorbidities include chronic kidney disease stage III, lumbar spinal stenosis with radiculopathy, soft tissue mass of right and left lower extremity due to calciphylaxis versus erythema nodosum versus panniculitis, chronic lung nodule, hypertension and history of recent cellulitis with last admission in September 2017. Multiple comorbidities complicates the present care and prolongs hospital stay and possible delayed recovery. DVT prophylaxis: On bilateral SCDs. Pharmacological prophylaxis contraindicated. Patient can be discharged tomorrow with home health care after she walks in a stable way Laboratory Results 12/07/17 07:35: Crossmatch See Detail 12/09/17 15:48: POC Glucose 175 H 12/09/17 22:08: POC Glucose 149 H 12/10/17 03:47: POC Glucose 110 12/10/17 04:50: Sodium 140, Potassium 3.5, Chloride 105, Carbon Dioxide 28.0, Anion Gap 7, BUN 18, Creatinine 1.00, Estim Creat Clear Calc 42.68, Est GFR (MDRD) Af Amer 70, Est GFR (MDRD) Non-Af 58 L, BUN/Creatinine Ratio 18.0, Glucose 101, Calcium 8.3 L 12/10/17 04:50: WBC 11.5 H, RBC 3.80 L, Hgb 8.7 L, Hct 28.0 L, MCV 73.7 L, MCH 22.9 L, MCHC 31.1 L, RDW 24.2 H, RDW Differential 62.6 H, Plt Count 287, MPV 9.7, Immature Gran % (Auto) 0.300, Neut % (Auto) 81.9 H, Lymph % (Auto) 10.0 L, [place] % (Auto) 7.8, Eos % (Auto) 0.0, Baso % (Auto) 0.0, Absolute Neuts (auto) 9.4 H, Absolute Lymphs (auto) 1.15, Total Counted Not Reportable, Platelet Estimate ADEQUATE, Hypochromasia 2+, Anisocytosis 2+, Target Cells RARE 12/10/17 06:42: POC Glucose 96 Microbiology Past 72 Hours 12/07/17 06:50 Stool Stool Occult Blood (ELENITA) - Final Occult Blood Positive Clinical Impression(s) from Imaging Studies Chest X-Ray 12/07/17 06:27 IMPRESSION: No acute cardiopulmonary abnormalities or changes. There is stable mild enlargement of the cardiac silhouette without pulmonary edema or pleural effusion. There is minimal bibasilar atelectasis due to low volume inspiration. Electronically Signed: Christen Gold MD at 7:00 EDT Tel Direct: [phone], Service support , Chest X-Ray 12/08/17 10:33 IMPRESSION: The tip of the right PICC line catheter is at the junction of the superior vena cava and right atrium. The lungs are stable. Electronically Signed: Carlos Cai MD at 12:28 EDT Tel [phone], Service support , Code Visit Inpatient E&M: 16289 Subs Hosp L3
--- NOTE | 2017-12-10 11:23 | PN_ITS ---
Patient Problems: Active and Suspected Problems (Last Updated 10/11/17 @ 09:06 by Gosia Martinez ) Lower GI bleed (Acute) Chronic A. fib on Xarelto (Acute) Recurrent falls (Acute) Generalized weakness (Acute) Subjective: Patient feels stronger and better after blood transfusion. Hemoglobin 8.7 g percent. Lower extremity pain more than yesterday as fentanyl was discontinued and oxycodone was added Objective: General: Alert, Oriented x3, Cooperative HEENT: Atraumatic, PERRLA, EOMI, Normocephalic Neck: Supple, No JVD, Negative Carotid Bruits Lungs: Diminished, Rhonchi - On right lung, Wheezes Cardiovascular: Regular rate, Regular Rhythm, Normal S1, Normal S2, No murmurs Abdomen: Bowel Sounds Present, Soft, Non Tender, Non-Distended Extremities: No edema, Capillary Refill Less than 3 Seconds Skin: No rashes, No breakdown Musculoskeletal: No Tenderness to Palpation of Joints or Extremities, Arthritic Changes Neurological: Cranial nerves II-XII grossly intact, Neuro grossly intact Psych/Mental Status: Normal Affect, Appropriate Vitals/I&O's: Vital Signs Temp Pulse Resp BP Pulse Ox 97.6 F L 85 16 124/54 H 94 12/10/17 09:20 12/10/17 09:22 12/10/17 09:20 12/10/17 09:20 12/10/17 09:20 Oxygen Flow Rate (L/min) 2 Oxygen Delivery Method Room Air Weight: 194 lb 3.636 oz Body Mass Index (BMI) 33.3 Intake and Output for Last 24 Hours 12/08/17 12/09/17 12/10/17 23:59 23:59 23:59 Intake Total 2048 / 2048 2687 / 2687 100 / 100 Output Total 1200 / 1200 3515 / 3515 250 / 250 Balance 848 / 848 -828 / -828 -150 / -150 Laboratory Results 12/09/17 15:48: POC Glucose 175 H 12/09/17 22:08: POC Glucose 149 H 12/10/17 03:47: POC Glucose 110 12/10/17 04:50: Sodium 140, Potassium 3.5, Chloride 105, Carbon Dioxide 28.0, Anion Gap 7, BUN 18, Creatinine 1.00, Estim Creat Clear Calc 42.68, Est GFR ( MDRD) Af Amer 70, Est GFR (MDRD) Non-Af 58 L, BUN/Creatinine Ratio 18.0, Glucose 101, Calcium 8.3 L 12/10/17 04:50: WBC 11.5 H, RBC 3.80 L, Hgb 8.7 L, Hct 28.0 L, MCV 73.7 L, MCH 22.9 L, MCHC 31.1 L, RDW 24.2 H, RDW Differential 62.6 H, Plt Count 287, MPV 9.7 , Immature Gran % (Auto) 0.300, Neut % (Auto) 81.9 H, Lymph % (Auto) 10.0 L, [place] % (Auto) 7.8, Eos % (Auto) 0.0, Baso % (Auto) 0.0, Absolute Neuts (auto) 9.4 H, Absolute Lymphs (auto) 1.15, Total Counted Not Reportable, Platelet Estimate ADEQUATE, Hypochromasia 2+, Anisocytosis 2+, Target Cells RARE 12/10/17 06:42: POC Glucose 96 Current Medications Dextrose (D50w Syringe) 0 gm IV X1 PRN; Protocol PRN Reason: Hypoglycemia Fluoxetine HCl (Prozac) 20 mg PO DAILY [facility] Last Admin: 12/10/17 09:22 Dose: 20 mg Gabapentin (Neurontin) 100 mg PO ACHS [facility] Last Admin: 12/10/17 06:43 Dose: 100 mg Glucagon () 1 mg IM .X1 PRN PRN Reason: Hypoglycemia Pantoprazole Sodium 40 mg/ (Sodium Chloride) 110 mls @ 330 mls/hr IV Q12 [facility] Last Admin: 12/10/17 09:22 Dose: 330 mls/hr Ceftriaxone Sodium (Rocephin) 1 gm in 50 mls @ 100 mls/hr IV Q24 [facility] Last Admin: 12/10/17 09:33 Dose: 100 mls/hr Insulin Aspart (Novolog Flexpen (Bkc)) 0 units SC ACHS & 3AM BULMARO PRN Reason: Protocol Last Admin: 12/10/17 06:43 Dose: Not Given Magnesium Hydroxide (Milk Of Magnesia) 30 ml PO DAILY PRN PRN PRN Reason: Constipation Metoprolol Tartrate (Lopressor (Beta Brandt)) 25 mg PO BID [facility] Last Admin: 12/10/17 09:22 Dose: 25 mg Metoprolol Tartrate (Lopressor (Beta Brandt)) 5 mg IV Q6 PRN PRN Reason: HR>120/m Morphine Sulfate (Ms Contin) 15 mg PO DAILY [facility] Last Admin: 12/10/17 09:22 Dose: 15 mg Nutritional Formula (Lactose Free) (Glucerna Shake) 120 ml PO 4X/DAY [facility] Last Admin: 12/10/17 09:23 Dose: 120 ml Oxycodone HCl (Oxycontin) 15 mg PO DAILY [facility] Last Admin: 12/10/17 09:22 Dose: 15 mg Oxycodone HCl (Oxyir) 5 mg PO Q4H PRN PRN PRN Reason: BREAKTHROUGH PAIN (>4/10) Last Admin: 12/10/17 03:56 Dose: 5 mg Prednisone (Prednisone) 60 mg PO DAILY@0800 [facility] Last Admin: 12/10/17 09:21 Dose: 60 mg Senna/Docusate Sodium (Senokot-S, Gabriella-Colace) 2 tablet PO BID PRN PRN Reason: constipation Sodium Chloride () 5 - 30 ml IV UD PRN PRN Reason: SALINE FLUSH Last Admin: 12/10/17 04:50 Dose: 20 ml Temazepam (Restoril) 15 mg PO QHS PRN PRN PRN Reason: insomnia Last Admin: 12/07/17 23:52 Dose: 15 mg Medical Necessity - Tobacco Use Smoking Status: Never smoker Assessment/Plan Active and Suspected Problems (Last Updated 10/11/17 @ 09:06 by Gosia Martinez ) Lower GI bleed (Acute) Chronic A. fib on Xarelto (Acute) Recurrent falls (Acute) Generalized weakness (Acute) The patient is a 72 year old F with multiple comorbidities including chronic heart failure with preserved EF, bilateral lower extremity pain and cellulitis, chronic A. fib on Xarelto came to ER with generalized weakness for 3-4 weeks and rectal bleed, bright red for last 1 week. Patient has been feeling progressively weak and had fall first 1 last week Monday for which she had a peña in the head in ER and then last 1 3 days ago on Monday for which she felt on the arm of the chair and has bruise on the right side of lower back. Patient did not had syncope. As per her daughter, she has been feeling weak and is not able to walk and using wheelchair which she normally does not use. Patient denies nausea vomiting or abdominal pain. She did not had recent EGD last 4-5 years but denies gastric ulcer/esophageal varices. Patient had colonoscopy by Dr. Alvarado. Patient has other significant comorbidities including peripheral arterial disease, venous stasis pulmonary hypertension and had a maze procedure. [] In ED, she was found to have hemoglobin 8.6 g percent, platelet count 2 75,000. INR was 8.0 and PTT 91.5. Patient's vital was noted, blood pressure 100/52, heart rate 94 pulse ox normal 96% on room air. Patient was admitted in ICU after K Centra given in ER. She is transferred to PCU. 1. GI bleed most probably lower GI bleed secondary to Xarelto and coupled with interaction with Cipro for which she was on for UTI: Patient was being admitted in the ICU for IV fluid resuscitation, vitals and H&H and hemodynamic monitoring and later transferred to PCU. IV fluid normal saline for resuscitation. Monitor intake/output. H&H stays between 8-9 g percent. Discussed with lifter Dr. Mitchell and surgeon Dr. Alvarado. On soft diet. Protonix 40 mg daily. 1 unit of PRBC transfused and hemoglobin 8.7 g percent. 2. Acute blood loss anemia secondary to GI bleed due to Xarelto, coupled with interaction with Cipro for which she was on for UTI: As mentioned above. Continue monitoring H&H. Patient IV access. PICC/midline line is in the right arm. 3. Chronic A. fib with RVR: With RVR status post maze procedure: Heart rate is controlled. On metoprolol 25 mg twice daily. Metoprolol 2.5 mg IV every 4 hourly as needed for heart rate more than 120/min. 4. Capsular pneumoniae cystitis:urine culture shows Klebsiella pneumoniae on 12/01/2017, sensitive to Junior. Currently patient is on IV Rocephin. Chronic heart failure with preserved EF, peripheral arterial disease, bilateral lower extremity venous stasis venous ulcer; chronic in nature, present on admission: Stable. Last 2D echo from May 2015 shows EF 50% with mild concentric LVH. RVSP 44 mmHg. 5. Diabetes mellitus type 2: On Accu-Chek every 6 hours and cover with NovoLog sliding scale. 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 There is blackening of his skin and violaceous one margin with extreme tenderness suggestive of pyoderma gangrenosum. On discussion with my colleague, started on prednisone 60 mg daily. Wound care and dressing recommendation as per wound nurse, Kate. The patient was initially treated with IV fentanyl and then later transitioned to oxycodone controlled release. Avoid excessive dose opioids as the blood pressure is also on the lower side. Patient does not want to go SNF. On physical therapy. C other chronic comorbidities include chronic kidney disease stage III, lumbar spinal stenosis with radiculopathy, soft tissue mass of right and left lower extremity due to calciphylaxis versus erythema nodosum versus panniculitis, chronic lung nodule, hypertension and history of recent cellulitis with last admission in September 2017. Multiple comorbidities complicates the present care and prolongs hospital stay and possible delayed recovery. DVT prophylaxis: On bilateral SCDs. Pharmacological prophylaxis contraindicated. Patient can be discharged tomorrow with home health care after she walks in a stable way Laboratory Results 12/07/17 07:35: Crossmatch See Detail 12/09/17 15:48: POC Glucose 175 H 12/09/17 22:08: POC Glucose 149 H 12/10/17 03:47: POC Glucose 110 12/10/17 04:50: Sodium 140, Potassium 3.5, Chloride 105, Carbon Dioxide 28.0, Anion Gap 7, BUN 18, Creatinine 1.00, Estim Creat Clear Calc 42.68, Est GFR ( MDRD) Af Amer 70, Est GFR (MDRD) Non-Af 58 L, BUN/Creatinine Ratio 18.0, Glucose 101, Calcium 8.3 L 12/10/17 04:50: WBC 11.5 H, RBC 3.80 L, Hgb 8.7 L, Hct 28.0 L, MCV 73.7 L, MCH 22.9 L, MCHC 31.1 L, RDW 24.2 H, RDW Differential 62.6 H, Plt Count 287, MPV 9.7 , Immature Gran % (Auto) 0.300, Neut % (Auto) 81.9 H, Lymph % (Auto) 10.0 L, Jasper % (Auto) 7.8, Eos % (Auto) 0.0, Baso % (Auto) 0.0, Absolute Neuts (auto) 9.4 H, Absolute Lymphs (auto) 1.15, Total Counted Not Reportable, Platelet Estimate ADEQUATE, Hypochromasia 2+, Anisocytosis 2+, Target Cells RARE 12/10/17 06:42: POC Glucose 96 Microbiology Past 72 Hours 12/07/17 06:50 Stool Stool Occult Blood (ELENITA) - Final Occult Blood Positive Clinical Impression(s) from Imaging Studies Chest X-Ray 12/07/17 06:27 IMPRESSION: No acute cardiopulmonary abnormalities or changes. There is stable mild enlargement of the cardiac silhouette without pulmonary edema or pleural effusion. There is minimal bibasilar atelectasis due to low volume inspiration. Electronically Signed: Christen Gold MD at 7:00 EDT Tel Direct: [phone], Service support , Chest X-Ray 12/08/17 10:33 IMPRESSION: The tip of the right PICC line catheter is at the junction of the superior vena cava and right atrium. The lungs are stable. Electronically Signed: Carlos Cai MD at 12:28 EDT Tel [phone], Service support , Code Visit Inpatient E&M: 65683 Subs Hosp L3
[2017-12-10 11:56] LABS: Bedside Glucose 94 mg/dL (70-110)
[2017-12-10 16:41] LABS: Bedside Glucose 155 mg/dL (70-110)
[2017-12-10] MEDS: Furosemide 40 MG/4 ML Vial IV (18:26)
[2017-12-10 21:25] LABS: Bedside Glucose 163 mg/dL (70-110)
[2017-12-11] VITALS (14 sets, daily range): BP systolic 100–124; BP diastolic 56–66; PULSE 83–115; RESP 16–18; TEMP 36.4–36.9; O2SAT 93–96
[2017-12-11] MEDS: oxyCODONE 5 MG Tablet PO ×4 (00:19→16:47)
[2017-12-11] MEDS: 0.9% NaCl Peripheral Flush Adult/Peds IV ×5 (01:51→11:32)
--- NOTE | 2017-12-11 03:14 | CPS ---
pt refused bipap
[2017-12-11 03:26] LABS: Bedside Glucose 121 mg/dL (70-110)
[2017-12-11] MEDS: Gabapentin 100 MG Capsule PO ×4 (06:00→22:21)
[2017-12-11 06:29] LABS: Anion Gap 8 (5-15); BUN 18 mg/dL (7-18); BUN/Creat Ratio 17.8 RATIO (10-20); Calcium,Total 8.4 mg/dL (8.5-10.1); Chloride 105 mmol/L (98-107); Creatinine, Serum 1.01 mg/dL (0.55-1.02); EST Glomerular Filtration Rate 57 mL/min (>60); Est Glom Filt Rate - Afr Amer 70 mL/min (>60); Estimated Creatinine Clearance 42.26 ml/min; Glucose 100 mg/dL (74-106); Potassium 3.6 mmol/L (3.5-5.1); Sodium Level 141 mmol/L (136-145)
[2017-12-11 06:39] LABS: Hematocrit 29.4 % (37-47); Hemoglobin 9.3 g/dl (12.0-15.0); Mean Corp Hgb Conc 31.6 g/gl (32-36); Mean Corpuscular Hgb 23.4 pg (27.0-32.0); Mean Corpuscular Volume 73.9 fL (81-99); Mean Platelet Vol. 9.9 fl (6.2-12.0); Platelet Count 396 K/mm3 (150-450); RBC Distribution Width CV 25.5 % (11.6-14.6); RBC Distribution Width SD 63.1 fl (35.1-43.9); Red Blood Count 3.98 M/mm3 (4.2-5.4); White Blood Count 17.3 K/mm3 (4.4-11.0)
[2017-12-11 06:40] LABS: Scan Indicated on CBC? Y/N YES- FLAGS NOTED
[2017-12-11 06:51] LABS: Bedside Glucose 104 mg/dL (70-110)
--- NOTE | 2017-12-11 06:51 | PN_ITS ---
Patient Problems: Active and Suspected Problems (Last Updated 10/11/17 @ 09:06 by Gosia Martinez ) Lower GI bleed (Acute) Chronic A. fib on Xarelto (Acute) Recurrent falls (Acute) Generalized weakness (Acute) Subjective: Patient reports no bowel movements overnight. Patient reports subjectively she feels her strength is improving. No shortness of breath on minimal exertion has been reported. Patient has not walked in the hallways as of this time. - Physical Exam General: Alert, Oriented x3, Cooperative, No apparent distress, - - Appears stated age. Speaking in full sentences. HEENT: Atraumatic, PERRLA, EOMI, Normocephalic, - - No scleral icterus or injection noted. Oral: Moist Mucosa, No Gingival or Mucosal Lesions/ Ulcerations Neck: Supple, No JVD, No Nodes, No Nuchal Rigidity Lungs: No rhonchi, No wheeze, No rales, Diminished, - - Symmetric expansion. No dullness to percussion. Cardiovascular: Normal S1, Normal S2, No murmurs, Irregular Rate, No rub noted, No Gallop Abdomen: Bowel Sounds Present, Soft, Non Tender, Non-Distended, Obese Extremities: No clubbing, No cyanosis, Edema - Unable to great secondary to compression Skin: No rashes, No breakdown, - - Unable to assess lower extremity secondary to compression Musculoskeletal: No Tenderness to Palpation of Joints or Extremities, No Muscle Wasting Lymphatic: No Cervical, Supraclavicular, or Inguinal Adenopathy Neurological: Cranial nerves II-XII grossly intact, Neuro grossly intact, Motor Exam 5/5 strength throughout Psych/Mental Status: Alert and oriented to time, place, person, mood and affect Vital Signs Temp Pulse Resp BP Pulse Ox 36.4 C L 90 16 124/66 H 93 12/11/17 03:07 12/11/17 03:07 12/11/17 03:07 12/11/17 03:07 12/11/17 03:07 Oxygen Flow Rate (L/min) 2 Oxygen Delivery Method Room Air Weight: 88 kg Body Mass Index (BMI) 33.3 Intake and Output for Last 24 Hours 12/09/17 12/10/17 12/11/17 23:59 23:59 23:59 Intake Total 2687 / 2687 800 / 800 622 / 622 Output Total 3515 / 3515 550 / 550 2100 / 2100 Balance -828 / -828 250 / 250 -1478 / -1478 Laboratory Tests Past 24 Hrs 12/10/17 12/10/17 12/11/17 04:50 22:10 01:45 WBC 11.5 H RBC 3.80 L Hgb 8.7 L Hct 28.0 L MCV 73.7 L MCH 22.9 L MCHC 31.1 L RDW 24.2 H RDW Differential 62.6 H Plt Count 287 MPV 9.7 Immature Gran % (Auto) 0.300 Neut % (Auto) 81.9 H Lymph % (Auto) 10.0 L [place] % (Auto) 7.8 Eos % (Auto) 0.0 Baso % (Auto) 0.0 Absolute Neuts (auto) 9.4 H Absolute Lymphs (auto) 1.15 Total Counted Not Reportable Platelet Estimate ADEQUATE Hypochromasia 2+ Anisocytosis 2+ Target Cells RARE Sodium Potassium Chloride Carbon Dioxide Anion Gap BUN Creatinine Estim Creat Clear Calc Est GFR (MDRD) Af Amer Est GFR (MDRD) Non-Af BUN/Creatinine Ratio Glucose Calcium Troponin I < 0.02 < 0.02 12/11/17 12/11/17 12/11/17 05:30 05:30 06:00 WBC 17.3 H RBC 3.98 L Hgb 9.3 L Hct 29.4 L MCV 73.9 L MCH 23.4 L MCHC 31.6 L RDW 25.5 H RDW Differential 63.1 H Plt Count 396 MPV 9.9 Immature Gran % (Auto) Neut % (Auto) Lymph % (Auto) [place] % (Auto) Eos % (Auto) Baso % (Auto) Absolute Neuts (auto) Absolute Lymphs (auto) Total Counted Platelet Estimate Hypochromasia Anisocytosis Target Cells Sodium 141 Potassium 3.6 Chloride 105 Carbon Dioxide 28.0 Anion Gap 8 BUN 18 Creatinine 1.01 Estim Creat Clear Calc 42.26 Est GFR (MDRD) Af Amer 70 Est GFR (MDRD) Non-Af 57 L BUN/Creatinine Ratio 17.8 Glucose 100 Calcium 8.4 L Troponin I < 0.02 POC Glucose 12/11/17 12/10/17 12/10/17 03:16 21:15 16:33 POC Glucose 121 H 163 H 155 H 12/10/17 12/10/17 11:44 06:42 POC Glucose 94 96 Medical Necessity - Tobacco Use Smoking Status: Never smoker Assessment/Plan Active and Suspected Problems (Last Updated 10/11/17 @ 09:06 by Gosia Martinez ) Lower GI bleed (Acute) Chronic A. fib on Xarelto (Acute) Recurrent falls (Acute) Generalized weakness (Acute) RECOMMENDATIONS: 1. Likely treated with ceftriaxone for a total of 5 days 2. Likely okay to wean prednisone therapy 3. Await cardiology decision on anticoagulation 4. Continue with wound care 5. Continue PPI twice daily, but likely okay to transition to p.o. IMPRESSIONS: 1. Blood loss anemia Since anticoagulation is currently on hold. Patient has not had any bowel movements and over 24 hours indicating probable cessation of bleeding. Patient does have multiple allergies that complicates therapy. Would defer to cardiology on long-term anticoagulation options. Likely okay to transition to p.o. Protonix 2. Coagulopathy/atrial fibrillation Initial difficulty likely secondary to interaction between ciprofloxacin and Xarelto, as the combination can lead to increased Xarelto levels, increasing the risk for bleeding. The patient did receive K Centra in the ED. hemoglobin appears to be improving appropriately. 3. Klebsiella pneumoniae cystitis Continue ceftriaxone to complete a 5 day treatment course. 4. Obstructive sleep apnea Recommend continuing BiPAP 09/08 with naps and nightly. [facility] will need to be contacted prior to the patient's discharge from the hospital to address her home machine malfunction. The patient has been noncompliant with use of BiPAP while in the hospital. Strongly suspect outpatient noncompliance with use. 5. Chronic wounds/ulcers of bilateral lower extremities The patient is currently being followed in the wound care clinic and was last seen by them on December 06. The etiology for her ulcers are felt to be secondary to venous insufficiency. Continue local wound care. Continue long- acting OxyContin with oxycodone for breakthrough pain. 6. Obesity/chronic kidney disease/peripheral neuropathy/anxiety Complicates care, management, recovery and prognosis. Physical therapy to continue to work with patient. This note was generated with [employer] software. It may contain incorrect words, spelling, and punctuation that were not noted in checking the note before signing. Code Visit Inpatient E&M: 68170 Subs Hosp L2
[2017-12-11 06:53] LABS: Differential Comment SCANNED
--- NOTE | 2017-12-11 07:00 | EKG12_ITS ---
Test Reason : AM EKG Blood Pressure : / mmHG Vent. Rate : 091 BPM Atrial Rate : 105 BPM P-R Int : 000 ms QRS Dur : 096 ms QT Int : 344 ms P-R-T Axes : 000 058 -67 degrees QTc Int : 423 ms Atrial fibrillation Nonspecific ST and T wave abnormality , probably digitalis effect Abnormal ECG When compared with ECG of 07-DEC-2017 06:41, MANUAL COMPARISON REQUIRED, DATA IS UNCONFIRMED Confirmed by MOODY BACON, ABISAI ([id number]), videotape editor CARLENE NELSON ([id number]) on 12/25/2017 2:07:44 PM Referred By: Meche Delvalle Confirmed By:ABISAI URIOSTEGUI MD
[2017-12-11] MEDS: oxyCODONE CR 15 MG Tablet PO (09:35)
[2017-12-11] MEDS: morphine SR 15 MG Tablet PO (09:35)
[2017-12-11] MEDS: Ceftriaxone 1 GM/50 mL Premix Q24 IV (09:36)
[2017-12-11] MEDS: Metoprolol Tartrate 25 MG Tablet PO ×2 (09:37→22:21)
[2017-12-11] MEDS: Furosemide 20 MG Tablet PO (09:37)
[2017-12-11] MEDS: FLUoxetine 20 MG Capsule PO (09:38)
[2017-12-11 11:36] LABS: Bedside Glucose 104 mg/dL (70-110)
--- NOTE | 2017-12-11 12:48 | CASEMGMT ---
Received update from re: transition planning. Per Kaylah, patient does not want placement and did not want [facility] However, Kaylah updated Dr. Glover of this information and Dr. Glover spoke to patient and reported to Kaylah that patient and family are now agreeable to [facility] RN ELÍAS sent referral to [facility] per request. Per Gosia, [facility] Liaison, she will let this RN CM know if there is a problem with accepting. Belgica Montero BSN, RN-, CCM
--- NOTE | 2017-12-11 13:22 | CASEMGMT ---
ANNETTA MCKINLEY met with patient due to physician stating patient has concerns about home health coverage. ANNETTA MCKINLEY did call patient's insurance provider, [employer], to verify home health benefit. Per ins rep, a precert is required, and if approved, will be paid at 100% or MCR allowable costs. ANNETTA MCKINLEY notified patient and family of this. Also notified that Gosia, from home health would be by to see patient prior to discharge and would be able to answer any other questions. Belgica Montero BSN, RN-BC, CCM
--- NOTE | 2017-12-11 15:08 | CHAPLAIN ---
Type of Pastoral Visit ___ Initial Visit _x__ Follow-up Visit ___ On-call Visit ___ General Patient Visit ___ Spiritual Assessment ___ Family Conference ___ Bereavement ___ Rapid Response ___ Code Blue ___ Other (describe below) Pastoral Care Referral From _x__ Patient _x__ Family ___ Nurse ___ Physician ___ Dye Feeder ___ Registered Sales Assistant ___ Other (describe below) Sacrament/Intervention ___ Active listening ___ Anointing ___ Mosque ___ Bereavement ___ Communion ___ Amy exploration ___ ___ Life review ___ Prayer ___ Reconciliation ___ Sacrament of Sick _x__ Supportive presence ___ Wedding ___ Other (describe below) Pastoral Comments brief follow up; patient reports of good improvement although still a ways to go; daughter is with her; DR enters room to discuss patient health and this saw tailer excuses self
--- NOTE | 2017-12-11 16:14 | PCM.PN.HOSP ---
Patient Problems: Active and Suspected Problems (Last Updated 10/11/17 @ 09:06 by Gosia Martinez) Lower GI bleed (Acute) Chronic A. fib on Xarelto (Acute) Recurrent falls (Acute) Generalized weakness (Acute) Subjective: Patient was seen and examined. Denies any acute complaints, Orantes catheter is yet to be removed. Patient does not want to be discharged to the intermediate facility, she does not want any home health care. I would ischial wounds in the legs, thinks that 1 of her relatives is going to help her with wound care. Denies any chest pain no dizziness or palpitation Objective: Physical examination: General: Alert, Oriented x3, Cooperative, overweight, not pale, no jaundice HEENT: Atraumatic, PERRLA, EOMI, Normocephalic Neck: Supple, No JVD, Negative Carotid Bruits Lungs: Diminished, Rhonchi - On right lung, Wheezes Cardiovascular: Regular rate, Regular Rhythm, Normal S1, Normal S2, No murmurs Abdomen: Bowel Sounds Present, Soft, Non Tender, Non-Distended Extremities: Bilateral Tray wrap to both lower extremities Skin: No rashes, No breakdown Musculoskeletal: No Tenderness to Palpation of Joints or Extremities, Arthritic Changes Neurological: Cranial nerves II-XII grossly intact, Neuro grossly intact Psych/Mental Status: Normal Affect, Appropriate Vitals/I&O's: Vital Signs Temp Pulse Resp BP Pulse Ox 98.5 F 115 H 18 114/60 96 12/11/17 15:22 12/11/17 15:38 12/11/17 15:22 12/11/17 15:22 12/11/17 15:22 Oxygen Flow Rate (L/min) 2 Oxygen Delivery Method Room Air Weight: 88 kg Body Mass Index (BMI) 33.3 Intake and Output for Last 24 Hours 12/09/17 12/10/17 12/11/17 23:59 23:59 23:59 Intake Total 2687 / 2687 800 / 800 1202 / 1202 Output Total 3515 / 3515 550 / 550 2825 / 2825 Balance -828 / -828 250 / 250 -1623 / -1623 Laboratory Results 12/10/17 16:33: POC Glucose 155 H 12/10/17 21:15: POC Glucose 163 H 12/10/17 22:10: Troponin I < 0.02 12/11/17 01:45: Troponin I < 0.02 12/11/17 03:16: POC Glucose 121 H 12/11/17 05:30: Troponin I < 0.02 12/11/17 05:30: Sodium 141, Potassium 3.6, Chloride 105, Carbon Dioxide 28.0, Anion Gap 8, BUN 18, Creatinine 1.01, Estim Creat Clear Calc 42.26, Est GFR (MDRD) Af Amer 70, Est GFR (MDRD) Non-Af 57 L, BUN/Creatinine Ratio 17.8, Glucose 100, Calcium 8.4 L 12/11/17 06:00: WBC 17.3 H, RBC 3.98 L, Hgb 9.3 L, Hct 29.4 L, MCV 73.9 L, MCH 23.4 L, MCHC 31.6 L, RDW 25.5 H, RDW Differential 63.1 H, Plt Count 396, MPV 9.9, Differential Comment SCANNED 12/11/17 06:43: POC Glucose 104 12/11/17 11:22: POC Glucose 104 Current Medications Dextrose (D50w Syringe) 0 gm IV X1 PRN; Protocol PRN Reason: Hypoglycemia Fluoxetine HCl (Prozac) 20 mg PO DAILY [facility] Last Admin: 12/11/17 09:38 Dose: 20 mg Furosemide (Lasix) 20 mg PO QODAY [facility] Last Admin: 12/11/17 09:37 Dose: 20 mg Gabapentin (Neurontin) 100 mg PO ACHS [facility] Last Admin: 12/11/17 11:33 Dose: 100 mg Glucagon () 1 mg IM .X1 PRN PRN Reason: Hypoglycemia Pantoprazole Sodium 40 mg/ (Sodium Chloride) 110 mls @ 330 mls/hr IV Q12 [facility] Last Admin: 12/11/17 09:36 Dose: 330 mls/hr Ceftriaxone Sodium (Rocephin) 1 gm in 50 mls @ 100 mls/hr IV Q24 [facility] Last Admin: 12/11/17 09:36 Dose: 100 mls/hr Insulin Aspart (Novolog Flexpen (Bkc)) 0 units SC ACHS & 3AM BULMARO PRN Reason: Protocol Last Admin: 12/11/17 11:33 Dose: Not Given Magnesium Hydroxide (Milk Of Magnesia) 30 ml PO DAILY PRN PRN PRN Reason: Constipation Metoprolol Tartrate (Lopressor (Beta Brandt)) 25 mg PO BID [facility] Last Admin: 12/11/17 09:37 Dose: 25 mg Metoprolol Tartrate (Lopressor (Beta Brandt)) 5 mg IV Q6 PRN PRN Reason: HR>120/m Morphine Sulfate (Ms Contin) 15 mg PO DAILY [facility] Last Admin: 12/11/17 09:35 Dose: 15 mg Nutritional Formula (Lactose Free) (Ensure Clear) 120 ml PO 4X/DAY [facility] Last Admin: 12/11/17 16:07 Dose: Not Given Oxycodone HCl (Oxycontin) 15 mg PO DAILY [facility] Last Admin: 12/11/17 09:35 Dose: 15 mg Oxycodone HCl (Oxyir) 5 mg PO Q4H PRN PRN PRN Reason: BREAKTHROUGH PAIN (>4/10) Last Admin: 12/11/17 11:32 Dose: 5 mg Prednisone (Prednisone) 40 mg PO DAILY@0800 [facility] PRN Reason: Taper Stop: 12/24/17 07:59 Senna/Docusate Sodium (Senokot-S, Gabriella-Colace) 2 tablet PO BID PRN PRN Reason: constipation Sodium Chloride () 5 - 30 ml IV UD PRN PRN Reason: SALINE FLUSH Last Admin: 12/11/17 11:32 Dose: 10 ml Temazepam (Restoril) 15 mg PO QHS PRN PRN PRN Reason: insomnia Last Admin: 12/07/17 23:52 Dose: 15 mg Medical Necessity - Tobacco Use Smoking Status: Never smoker Tobacco Use: Non-smoker Assessment/Plan Active and Suspected Problems (Last Updated 10/11/17 @ 09:06 by Gosia Martinez) Lower GI bleed (Acute) Chronic A. fib on Xarelto (Acute) Recurrent falls (Acute) Generalized weakness (Acute) 72 year old F with multiple comorbidities including chronic heart failure with preserved EF, bilateral lower extremity pain/cellulitis, chronic A. fib on Xarelto admitted with generalized weakness for 3-4 weeks and rectal bleed, bright red for 1 week. Patient has been feeling progressively weak and had fall first 1 last week Monday for which she had a peña in the head in ER. She had a fall 13 days prior to admission when she fell on the chair and had a bruise. 1. Acute GI bleed, off Xarelto, managed effectively, stable H&H, or bleeding seen 2. Acute blood loss anemia secondary to GI bleed due to Xarelto, as well as 1 unit packed RBC transfusion, globin remained stable, will continue to monitor 3. Chronic A. fib with RVR, status post maze procedure, rate controlled, off Coumadin on account of GI bleed 4. Klebsiella pneumonia UTI, just urine cultures to Klebsiella, started on antibiotics on 12/07/17, would aim for 5 days total. Stop date of 12/12/17. 5. Chronic heart failure with preserved EF, 6. Peripheral arterial disease, bilateral lower extremity venous stasis ulcers, calciphylaxis/peripheral neuropathy chronic, started on prednisone taper for possible suspicion of pyoderma gangrenosum 7. Diabetes mellitus type 2, blood sugars have been stable, on Accu-Cheks and insulin sliding scale 8. DVT prophylaxis - SCDs;off anticoagulation on account of GI bleed pharmacological prophylaxis contraindicated. Code Visit Inpatient E&M: 67634 Subs Hosp L2
--- NOTE | 2017-12-11 16:27 | PN_ITS ---
Patient Problems: Active and Suspected Problems (Last Updated 10/11/17 @ 09:06 by Gosia Martinez ) Lower GI bleed (Acute) Chronic A. fib on Xarelto (Acute) Recurrent falls (Acute) Generalized weakness (Acute) Subjective: Patient was seen and examined. Denies any acute complaints, Orantes catheter is yet to be removed. Patient does not want to be discharged to the [facility] facility, she does not want any home health care. I would ischial wounds in the legs, thinks that 1 of her relatives is going to help her with wound care. Denies any chest pain no dizziness or palpitation Objective: Physical examination: General: Alert, Oriented x3, Cooperative, overweight, not pale, no jaundice HEENT: Atraumatic, PERRLA, EOMI, Normocephalic Neck: Supple, No JVD, Negative Carotid Bruits Lungs: Diminished, Rhonchi - On right lung, Wheezes Cardiovascular: Regular rate, Regular Rhythm, Normal S1, Normal S2, No murmurs Abdomen: Bowel Sounds Present, Soft, Non Tender, Non-Distended Extremities: Bilateral Tray wrap to both lower extremities Skin: No rashes, No breakdown Musculoskeletal: No Tenderness to Palpation of Joints or Extremities, Arthritic Changes Neurological: Cranial nerves II-XII grossly intact, Neuro grossly intact Psych/Mental Status: Normal Affect, Appropriate Vitals/I&O's: Vital Signs Temp Pulse Resp BP Pulse Ox 98.5 F 115 H 18 114/60 96 12/11/17 15:22 12/11/17 15:38 12/11/17 15:22 12/11/17 15:22 12/11/17 15:22 Oxygen Flow Rate (L/min) 2 Oxygen Delivery Method Room Air Weight: 88 kg Body Mass Index (BMI) 33.3 Intake and Output for Last 24 Hours 12/09/17 12/10/17 12/11/17 23:59 23:59 23:59 Intake Total 2687 / 2687 800 / 800 1202 / 1202 Output Total 3515 / 3515 550 / 550 2825 / 2825 Balance -828 / -828 250 / 250 -1623 / -1623 Laboratory Results 12/10/17 16:33: POC Glucose 155 H 12/10/17 21:15: POC Glucose 163 H 12/10/17 22:10: Troponin I < 0.02 12/11/17 01:45: Troponin I < 0.02 12/11/17 03:16: POC Glucose 121 H 12/11/17 05:30: Troponin I < 0.02 12/11/17 05:30: Sodium 141, Potassium 3.6, Chloride 105, Carbon Dioxide 28.0, Anion Gap 8, BUN 18, Creatinine 1.01, Estim Creat Clear Calc 42.26, Est GFR ( MDRD) Af Amer 70, Est GFR (MDRD) Non-Af 57 L, BUN/Creatinine Ratio 17.8, Glucose 100, Calcium 8.4 L 12/11/17 06:00: WBC 17.3 H, RBC 3.98 L, Hgb 9.3 L, Hct 29.4 L, MCV 73.9 L, MCH 23.4 L, MCHC 31.6 L, RDW 25.5 H, RDW Differential 63.1 H, Plt Count 396, MPV 9.9 , Differential Comment SCANNED 12/11/17 06:43: POC Glucose 104 12/11/17 11:22: POC Glucose 104 Current Medications Dextrose (D50w Syringe) 0 gm IV X1 PRN; Protocol PRN Reason: Hypoglycemia Fluoxetine HCl (Prozac) 20 mg PO DAILY [facility] Last Admin: 12/11/17 09:38 Dose: 20 mg Furosemide (Lasix) 20 mg PO QODAY [facility] Last Admin: 12/11/17 09:37 Dose: 20 mg Gabapentin (Neurontin) 100 mg PO ACHS [facility] Last Admin: 12/11/17 11:33 Dose: 100 mg Glucagon () 1 mg IM .X1 PRN PRN Reason: Hypoglycemia Pantoprazole Sodium 40 mg/ (Sodium Chloride) 110 mls @ 330 mls/hr IV Q12 [facility] Last Admin: 12/11/17 09:36 Dose: 330 mls/hr Ceftriaxone Sodium (Rocephin) 1 gm in 50 mls @ 100 mls/hr IV Q24 [facility] Last Admin: 12/11/17 09:36 Dose: 100 mls/hr Insulin Aspart (Novolog Flexpen (Bkc)) 0 units SC ACHS & 3AM BULMARO PRN Reason: Protocol Last Admin: 12/11/17 11:33 Dose: Not Given Magnesium Hydroxide (Milk Of Magnesia) 30 ml PO DAILY PRN PRN PRN Reason: Constipation Metoprolol Tartrate (Lopressor (Beta Brandt)) 25 mg PO BID [facility] Last Admin: 12/11/17 09:37 Dose: 25 mg Metoprolol Tartrate (Lopressor (Beta Brandt)) 5 mg IV Q6 PRN PRN Reason: HR>120/m Morphine Sulfate (Ms Contin) 15 mg PO DAILY [facility] Last Admin: 12/11/17 09:35 Dose: 15 mg Nutritional Formula (Lactose Free) (Ensure Clear) 120 ml PO 4X/DAY [facility] Last Admin: 12/11/17 16:07 Dose: Not Given Oxycodone HCl (Oxycontin) 15 mg PO DAILY [facility] Last Admin: 12/11/17 09:35 Dose: 15 mg Oxycodone HCl (Oxyir) 5 mg PO Q4H PRN PRN PRN Reason: BREAKTHROUGH PAIN (>4/10) Last Admin: 12/11/17 11:32 Dose: 5 mg Prednisone (Prednisone) 40 mg PO DAILY@0800 [facility] PRN Reason: Taper Stop: 12/24/17 07:59 Senna/Docusate Sodium (Senokot-S, Gabriella-Colace) 2 tablet PO BID PRN PRN Reason: constipation Sodium Chloride () 5 - 30 ml IV UD PRN PRN Reason: SALINE FLUSH Last Admin: 12/11/17 11:32 Dose: 10 ml Temazepam (Restoril) 15 mg PO QHS PRN PRN PRN Reason: insomnia Last Admin: 12/07/17 23:52 Dose: 15 mg Medical Necessity - Tobacco Use Smoking Status: Never smoker Tobacco Use: Non-smoker Assessment/Plan Active and Suspected Problems (Last Updated 10/11/17 @ 09:06 by Gosia Martinez ) Lower GI bleed (Acute) Chronic A. fib on Xarelto (Acute) Recurrent falls (Acute) Generalized weakness (Acute) 72 year old F with multiple comorbidities including chronic heart failure with preserved EF, bilateral lower extremity pain/cellulitis, chronic A. fib on Xarelto admitted with generalized weakness for 3-4 weeks and rectal bleed, bright red for 1 week. Patient has been feeling progressively weak and had fall first 1 last week Monday for which she had a peña in the head in ER. She had a fall 13 days prior to admission when she fell on the chair and had a bruise. 1. Acute GI bleed, off Xarelto, managed effectively, stable H&H, or bleeding seen 2. Acute blood loss anemia secondary to GI bleed due to Xarelto, as well as 1 unit packed RBC transfusion, globin remained stable, will continue to monitor 3. Chronic A. fib with RVR, status post maze procedure, rate controlled, off Coumadin on account of GI bleed 4. Klebsiella pneumonia UTI, just urine cultures to Klebsiella, started on antibiotics on 12/07/17, would aim for 5 days total. Stop date of . 5. Chronic heart failure with preserved EF, 6. Peripheral arterial disease, bilateral lower extremity venous stasis ulcers, calciphylaxis/peripheral neuropathy chronic, started on prednisone taper for possible suspicion of pyoderma gangrenosum 7. Diabetes mellitus type 2, blood sugars have been stable, on Accu-Cheks and insulin sliding scale 8. DVT prophylaxis - SCDs;off anticoagulation on account of GI bleed pharmacological prophylaxis contraindicated. Code Visit Inpatient E&M: 12317 Subs Hosp L2
[2017-12-11 16:51] LABS: Bedside Glucose 165 mg/dL (70-110)
[2017-12-11 22:35] LABS: Bedside Glucose 210 mg/dL (70-110)
[2017-12-12] VITALS (7 sets, daily range): BP systolic 118; BP diastolic 50–58; PULSE 76–112; RESP 16–18; TEMP 36.8–37; O2SAT 93
[2017-12-12 03:10] LABS: Bedside Glucose 135 mg/dL (70-110)
[2017-12-12] MEDS: Furosemide 20 MG/2 ML VIAL IV (05:53)
[2017-12-12] MEDS: 0.9% NaCl Peripheral Flush Adult/Peds IV ×2 (05:53→10:51)
[2017-12-12 06:00] LABS: Anion Gap 6 (5-15); BUN 20 mg/dL (7-18); Calcium,Total 8.2 mg/dL (8.5-10.1); Chloride 104 mmol/L (98-107); Creatinine, Serum 1.25 mg/dL (0.55-1.02); EST Glomerular Filtration Rate 45 mL/min (>60); Est Glom Filt Rate - Afr Amer 54 mL/min (>60); Estimated Creatinine Clearance 34.15 ml/min; Glucose 110 mg/dL (74-106); Potassium 3.4 mmol/L (3.5-5.1); Sodium Level 141 mmol/L (136-145)
[2017-12-12 06:21] LABS: Absolute Lymphocyte Count 1.14 X10^3/ul (0.83-4.51); Absolute Neutrophil Count 11.4 X10^3/uL (2.0-7.7); Hematocrit 27.6 % (37-47); Hemoglobin 8.5 g/dl (12.0-15.0); Lymphocyte # 1.14 X10^3/ul (4.0); Lymphocyte % 8.3 % (19-41); Mean Corp Hgb Conc 30.8 g/gl (32-36); Mean Corpuscular Volume 74.8 fL (81-99); Mean Platelet Vol. 9.2 fl (6.2-12.0); Monocyte# 1.17 X10^3/uL; Monocyte% 8.5 % (0-10); Neutrophil # 11.36 X10^3/uL (2.7-7.7); Neutrophil % 82.9 % (47-70); Platelet Count 282 K/mm3 (150-450); RBC Distribution Width CV 25.2 % (11.6-14.6); RBC Distribution Width SD 65.8 fl (35.1-43.9); Red Blood Count 3.69 M/mm3 (4.2-5.4); White Blood Count 13.7 K/mm3 (4.4-11.0)
[2017-12-12 06:24] LABS: POSITIVE COUNT NO; POSITIVE DIFFERENTIAL NO; POSITIVE MORPHOLOGY YES
[2017-12-12 06:25] LABS: Differential Indicated SCAN CRITERIA MET
[2017-12-12 06:39] LABS: Anisocytosis 2+; Differential Comment SCANNED; Hypochromasia 3+; Microcytosis 2+
[2017-12-12 06:40] LABS: Target Cells 2+
[2017-12-12 07:05] LABS: Bedside Glucose 92 mg/dL (70-110)
[2017-12-12] MEDS: oxyCODONE 5 MG Tablet PO ×2 (07:27→11:33)
[2017-12-12] MEDS: Gabapentin 100 MG Capsule PO ×2 (07:28→10:23)
--- NOTE | 2017-12-12 08:08 | PCM.PROGNOTE ---
Patient Problems: Active and Suspected Problems (Last Updated 10/11/17 @ 09:06 by Gosia Martinez) Lower GI bleed (Acute) Chronic A. fib on Xarelto (Acute) Recurrent falls (Acute) Generalized weakness (Acute) Subjective: Patient did well overnight. Patient feels subjectively improved compared to previous. Patient does state that she had a bowel movement this morning that was dark brown, but did stick to the bowl. Patient denies any abdominal or chest pain at this time. Patient believes she is at her baseline respiratory status. Patient continues to refuse LYN therapy overnight. - Physical Exam General: Alert, Oriented x3, Cooperative, No apparent distress, - - Obese. Speaking in full sentences. HEENT: Atraumatic, PERRLA, EOMI, Normocephalic, - - No scleral icterus or injection noted. Oral: Moist Mucosa, No Gingival or Mucosal Lesions/ Ulcerations Neck: Supple, No JVD, No Nodes Lungs: No rhonchi, No wheeze, No rales, Diminished, - - Symmetric expansion. No dullness to percussion. Cardiovascular: Normal S1, Normal S2, No murmurs, Irregular Rate, No rub noted, No Gallop Abdomen: Bowel Sounds Present, Soft, Non Tender, Non-Distended, Obese Extremities: No clubbing, No cyanosis, No edema Skin: - - No significant change from previous. Lower extremities to have compression wraps limiting eval Musculoskeletal: No Tenderness to Palpation of Joints or Extremities Lymphatic: No Cervical, Supraclavicular, or Inguinal Adenopathy Neurological: Cranial nerves II-XII grossly intact, Neuro grossly intact, Motor Exam 5/5 strength throughout Psych/Mental Status: Alert and oriented to time, place, person, mood and affect Vital Signs Temp Pulse Resp BP Pulse Ox 36.8 C 101 H 18 118/50 L 93 12/12/17 04:16 12/12/17 07:43 12/12/17 04:16 12/12/17 04:16 12/12/17 04:52 Oxygen Flow Rate (L/min) 2 Oxygen Delivery Method Room Air Weight: 82.6 kg Body Mass Index (BMI) 33.3 Intake and Output for Last 24 Hours 12/10/17 12/11/17 12/12/17 23:59 23:59 23:59 Intake Total 800 / 800 1849 / 1849 120 / 120 Output Total 550 / 550 2825 / 2825 Balance 250 / 250 -976 / -976 120 / 120 Laboratory Tests Past 24 Hrs 12/12/17 12/12/17 05:35 05:35 WBC 13.7 H RBC 3.69 L Hgb 8.5 L Hct 27.6 L MCV 74.8 L MCH 23.0 L MCHC 30.8 L RDW 25.2 H RDW Differential 65.8 H Plt Count 282 MPV 9.2 Immature Gran % (Auto) 0.300 Neut % (Auto) 82.9 H Lymph % (Auto) 8.3 L [place] % (Auto) 8.5 Eos % (Auto) 0.0 Baso % (Auto) 0.0 Absolute Neuts (auto) 11.4 H Absolute Lymphs (auto) 1.14 Total Counted Not Reportable Differential Comment SCANNED Hypochromasia 3+ Anisocytosis 2+ Microcytosis 2+ Target Cells 2+ Sodium 141 Potassium 3.4 L Chloride 104 Carbon Dioxide 31.0 Anion Gap 6 BUN 20 H Creatinine 1.25 H Estim Creat Clear Calc 34.15 Est GFR (MDRD) Af Amer 54 L Est GFR (MDRD) Non-Af 45 L BUN/Creatinine Ratio 16.0 Glucose 110 H Calcium 8.2 L POC Glucose 12/12/17 12/12/17 12/11/17 06:55 03:07 22:15 POC Glucose 92 135 H 210 H 12/11/17 12/11/17 16:42 11:22 POC Glucose 165 H 104 Medical Necessity - Tobacco Use Smoking Status: Never smoker Tobacco Use: Non-smoker Assessment/Plan Active and Suspected Problems (Last Updated 10/11/17 @ 09:06 by Gosia Martinez) Lower GI bleed (Acute) Chronic A. fib on Xarelto (Acute) Recurrent falls (Acute) Generalized weakness (Acute) RECOMMENDATIONS: 1. Discontinue antibiotics after today 2. Will wean prednisone therapy 3. Await cardiology decision on anticoagulation 4. Continue with wound care 5. Continue PPI twice daily, but likely okay to transition to p.o. IMPRESSIONS: 1. Blood loss anemia No further blood loss noted since anticoagulation is currently on hold. Patient did have a bowel movement that was darker in color and stuck to the pole indicating probable element of blood. However, this is likely residual from previously bleeding. Patient does have multiple allergies that complicates therapy. Would defer to cardiology on long-term anticoagulation options. Likely okay to transition to p.o. Protonix 2. Coagulopathy/atrial fibrillation Initial difficulty likely secondary to interaction between ciprofloxacin and Xarelto, as the combination can lead to increased Xarelto levels, increasing the risk for bleeding. The patient did receive K Centra in the ED. would not be opposed to reinitiation of anticoagulation from a pulmonary perspective 3. Klebsiella pneumoniae cystitis Continue ceftriaxone to complete a 5 day treatment course. Today's dose would constitute the fifth and final dose required. 4. Obstructive sleep apnea Recommend continuing BiPAP 09/08 with naps and nightly. [facility] will need to be contacted prior to the patient's discharge from the hospital to address her home machine malfunction. The patient has been noncompliant with use of BiPAP while in the hospital. Strongly suspect outpatient noncompliance with use. 5. Chronic wounds/ulcers of bilateral lower extremities The patient is currently being followed in the wound care clinic and was last seen by them on December 06. The etiology for her ulcers are felt to be secondary to venous insufficiency. Continue local wound care. Continue long-acting OxyContin with oxycodone for breakthrough pain. Patient would benefit from home nurse versus ECF for wound recovery. 6. Obesity/chronic kidney disease/peripheral neuropathy/anxiety Complicates care, management, recovery and prognosis. Physical therapy to continue to work with patient. This note was generated with [employer] dictation software. It may contain incorrect words, spelling, and punctuation that were not noted in checking the note before signing. Code Visit Inpatient E&M: 02229 Subs Hosp L2
[2017-12-12] MEDS: oxyCODONE CR 15 MG Tablet PO (10:21)
[2017-12-12] MEDS: Metoprolol Tartrate 25 MG Tablet PO (10:22)
[2017-12-12] MEDS: Pantoprazole Sodium 40 MG Tablet PO (10:22)
[2017-12-12] MEDS: FLUoxetine 20 MG Capsule PO (10:22)
--- NOTE | 2017-12-12 10:26 | PCM.DC ---
- Discharge Diagnoses Current Active Problems: Current Active and Chronic Problems (Last Updated 10/11/17 @ 09:06 by Gosia Martinez) Lower GI bleed (Acute) Chronic A. fib on Xarelto (Acute) Recurrent falls (Acute) Generalized weakness (Acute) Reason(s) for Visit for Discharge Instructions: Rectal bleeding You will use the following diet at home:: Cardiac Your food should be the consistency of: Regular Your liquids should be the consistency of: Regular/Thin Discharge Activity: Return to Normal Activity Additional Instructions: He will have home health nurse and physical therapy as well as occupational therapy at home. Denies [id number] wounds. He will need to follow-up with Dr. Childers in the outpatient and also see Dr. Alvarado for colonoscopy in the outpatient. Please come back to the ED if you affect rectal bleeding. Allergies/Adverse Reactions: Allergies amlodipine besylate [From Norvasc] Allergy (Verified 12/07/17 06:11) Unknown Shortness of breath ceftriaxone Allergy (Verified 12/07/17 06:11) Rash doxazosin mesylate [From Cardura] Allergy (Verified 12/07/17 06:11) Unknown Pt doesn't remember doxycycline Allergy (Verified 12/07/17 06:11) Unknown Pt doesn't remember enalapril maleate [From Vasotec] Allergy (Verified 12/07/17 06:11) Rash enalaprilat dihydrate [From Vasotec] Allergy (Verified 12/07/17 06:11) Rash hydroxyzine HCl [From Vistaril] Allergy (Verified 12/07/17 06:11) Rash hydroxyzine pamoate [From Vistaril] Allergy (Verified 12/07/17 06:11) Rash meperidine HCl [From Demerol] Allergy (Verified 12/07/17 06:11) Rash Sulfa (Sulfonamide Antibiotics) Allergy (Verified 12/07/17 06:11) Hives sulfamethoxazole [From Bactrim] Allergy (Verified 12/04/17 05:42) Hives trimethoprim [From Bactrim] Allergy (Verified 12/04/17 05:42) Hives Medications to take at Discharge Gabapentin [Neurontin] 100 mg PO 4X/DAY 09/29/17 Fluoxetine [Prozac] 20 mg PO DAILY 09/30/17 furosemide 40 mg tablet 20 mg PO QODAY tab 10/11/17 Lysine [l-Lysine] 1,000 mg PO DAILY 11/18/17 potassium chloride ER 10 mEq tablet,extended release 10 meq PO QDAY #30 tab 11/27/17 Hydrocodone/Acetaminophen [Hydrocodone-Acetamin 5-325 mg] 1 tab PO BID 12/04/17 Ensure Clear 120 ml PO 4X/DAY #100 liquid 12/12/17 Metoprolol Tartrate [Lopressor (beta alok)] 25 mg PO BID #60 tab 12/12/17 Pantoprazole Sodium [Protonix] 40 mg PO BID #60 tab 12/12/17 Senna/Docusate Sodium [Senokot-S] 2 tab PO BID PRN #30 tab 12/12/17 The following prescriptions were given: Metoprolol Tartrate [Lopressor (beta alok)] 25 mg PO BID #60 tab Pantoprazole Sodium [Protonix] 40 mg PO BID #60 tab Senna/Docusate Sodium [Senokot-S] 2 tab PO BID PRN #30 tab PRN Reason: constipation Ensure Clear 120 ml PO 4X/DAY #100 liquid Primary Care Physician: Aaron Tidwell MD [Primary Care Provider] - Please follow up with your Primary Care Physician in: within 2 weeks Please Follow Up With: Haung Alvarado MD When: within 2 weeks Please Follow Up With: Epifanio Childers MD When: in 2 weeks Proposed Discharge Date: 12/12/17
[2017-12-12 10:58] LABS: Hematocrit 29.9 % (37-47); Hemoglobin 9.6 g/dl (12.0-15.0)
--- NOTE | 2017-12-12 11:23 | CASEMGMT ---
ANNETTA MCKINELY was notified by physician that patient is still asking questions about home health coverage, and that patient has a malfunctioning Bipap at home. ANNETTA MCKINLEY met with patient to discuss co-pays for HHC and interventions for Bipap. ANNETTA MCKINLEY called [facility] and spoke to RT Nura. Per Nura, patient's family can bring machine in to [facility] for repair, and a loaner will be given if repairs are needed. ANNETTA MCKINLEY let the patient know this, and patient called her to ask him to take machine to [facility] today on his way to the hospital. ANNETTA MCKINLEY discussed with patient co-pay for home health, and during discussion it came up that there will be no one available to assist with dressing changes due to family dynamics. ANNETTA MCKINLEY discussed with patient the benefit of going to a facility for continued wound care and PT/OT, since the patient is stating at this time there is limited family support. Barriers for transition to home include: the patient has had a recent functional decline with transition to mostly wheel chair use at home, has bilateral lower extremity wounds which, per patient and family, have worsened in the outpatient setting, and limited family support at this time, as stated by patient. The patient has been very concerned about finances on each encounter re: transition planning. ANNETTA MCKINLEY asked patient, if there was no out of pocket expense, would that have any barring on her decision. The patient stated yes, then I would consider going to TCU, but would need to discuss with spouse. ANNETTA MCKINLEY notified social work program coordinator Kaylah that patient would like to know [id number] costs. Kaylah called patient insurance provider and found $0 copay for days 1-20. ANNETTA MCKINLEY notified patient and patient's dtr. Patient reports her dtr is not in charge anymore. Dtr states mom, I was never in charge. ANNETTA MCKINLEY asked patient if she would like to transition to the TCU (patient's facility of choice), and patient tearfully stated yes. ANNETTA MCKINLEY notified Kaylah who will attempt to obtain precertification for patient transition to TCU. FUENTES also notified of family dynamics. ANNETTA MCKINLEY and FUENTES will continue collaboration for a safe transition plan. Disposition: TCU, pending precert T. Lepp, BSN, RN-BC, CCM
[2017-12-12 11:45] LABS: Bedside Glucose 181 mg/dL (70-110)
--- NOTE | 2017-12-12 11:46 | CASEMGMT ---
Addendum entered by Kaylah Browne 12/12/17 12:11: FUENTES received a call from Giselle at [facility] and she approved patient. FUENTES notified Veena in TCU and RN. Plan: [facility] TCU under skilled level of care. Kaylah MILLER Original Note: RN CM indicated patient has agreed to go to TCU after FUENTES found out her benefits for SNF. Days 1-20 are covered at 100%. FUENTES spoke with Veena in TCU and she can take patient. FUENTES faxed information to Giselle at [facility]. FUENTES then called Giselle and left her a voice mail. Plan: TCU pending insurance approval Kaylah SALGADO MSW
--- NOTE | 2017-12-12 12:26 | NURSING ---
ATTEMPTED TO CALL REPORT TO TCU
--- NOTE | 2017-12-12 12:26 | NURSING ---
DR BOURNE STATED OKAY TO LEAVE PICC LINE IN, PER SYSTEMS INTEGRATION ENGINEER.
--- NOTE | 2017-12-12 13:02 | PCM.TXEXTCAR ---
- Diet 12/11/17 12:31 Diet: Calorie Controlled Is pt able to select menu?: Yes Diet Comments: pt is diabetic, needs sugar free liquids, Low gastric stim How many daily calories?: 1600 calorie - Routine Orders/Code Status Routine Lab Work: CBC - in 3 days, BMP - in 3 days, - - CPAP at night - Wound(s) scalp Wound Type: Abrasion Dressing Change: AntiMicrobial (Aquacel AG, etc) LLE Wound Type: non healing ulcer Dressing Change: hydrogel with Adaptic RLE Wound Type: non healing ulcers Dressing Change: hydrogel with Adaptic - Therapies Weight Bearing: Weight bearing as tolerated Extremity Affected:: Bilateral Lower Physical Therapy: Eval and Treat Occupational Therapy: Eval and Treat - Allergies/Procedures Done in Hospital Allergies/Adverse Reactions: Allergies amlodipine besylate [From Norvasc] Allergy (Verified 12/07/17 06:11) Unknown Shortness of breath ceftriaxone Allergy (Verified 12/07/17 06:11) Rash doxazosin mesylate [From Cardura] Allergy (Verified 12/07/17 06:11) Unknown Pt doesn't remember doxycycline Allergy (Verified 12/07/17 06:11) Unknown Pt doesn't remember enalapril maleate [From Vasotec] Allergy (Verified 12/07/17 06:11) Rash enalaprilat dihydrate [From Vasotec] Allergy (Verified 12/07/17 06:11) Rash hydroxyzine HCl [From Vistaril] Allergy (Verified 12/07/17 06:11) Rash hydroxyzine pamoate [From Vistaril] Allergy (Verified 12/07/17 06:11) Rash meperidine HCl [From Demerol] Allergy (Verified 12/07/17 06:11) Rash Sulfa (Sulfonamide Antibiotics) Allergy (Verified 12/07/17 06:11) Hives sulfamethoxazole [From Bactrim] Allergy (Verified 12/04/17 05:42) Hives trimethoprim [From Bactrim] Allergy (Verified 12/04/17 05:42) Hives Procedures: None - Type of Care/Length of Stay Estimated LOS: Convalescent Care Less Than 30 days Type of Care Needed: Skilled Rehab Potential: Fair Prognosis: Good - Additional Orders/Day of Discharge Day of Discharge: 12/12/17 - Dietary and Speech Recommendations Dietitian Recommendations/Changes: Suggest diet as tolerated to 1600 calorie, cardiac, no gastric stimulant/low residue. Will d/c glucerna shake & offer ensure clear on medpass. - Follow Up Care Primary Care Physician: Aaron Tidwell MD [Primary Care Provider] - Please follow up with your Primary Care Physician in: within 2 weeks after discharge Please Follow Up With: Huang Alvarado MD When: within 2 weeks Please Follow Up With: Epifanio Childers MD When: in 2 weeks
--- NOTE | 2017-12-12 22:42 | PCM.DC.SUM ---
Discharge Date and Diagnosis - Problem List Patient Problems: Active and Suspected Problems (Last Updated 10/11/17 @ 09:06 by Gosia Martinez) Weakness (Acute) Anemia (Acute) Hypokalemia (Acute) Date of Admission: 12/07/17 Date of Discharge: 12/12/17 - Primary Discharge Diagnosis Active and Suspected Problems (Last Updated 10/11/17 @ 09:06 by Gosia Martinez) Weakness (Acute) Anemia (Acute) Hypokalemia (Acute) - Secondary Discharge Diagnosis Chronic Problems (Last Updated 10/11/17 @ 09:06 by Gosia Martinez) Calcinosis (Chronic) Edema (Chronic) Pulmonary hypertension (Chronic) Atrial fibrillation (Chronic) Chronic diastolic heart failure (Chronic) Diabetes mellitus (Chronic) Chronic kidney disease (Chronic) Lumbar spinal stenosis (Chronic) PAOD (peripheral arterial occlusive disease) (Chronic) Venous stasis ulcer (Chronic) Depression (Chronic) Neuropathic pain (Chronic) Edema, lower extremity (Chronic) Pulmonary hypertension, secondary (Chronic) History of cardiac radiofrequency ablation (RFA) (Chronic) 1st part of MAZE procedure Lt Atrial Ablation 01/12/17 @ [facility] Localized edema (Chronic) Heart failure with 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 (Chronic) 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) Chronic atrial fibrillation (Chronic) [facility] 10/10, 10/2015; MAZE procedure @ Sy 01/12/2017; Status post placement of implantable loop recorder (Chronic) History of maze procedure (Chronic) Other secondary pulmonary hypertension (Chronic) Chronic diastolic (congestive) heart failure (Chronic) Symptomatic anemia (Chronic) Hypertension (Chronic) Type 2 diabetes mellitus (Chronic) Lung nodule (Chronic) Chronic kidney disease, stage 3 (Chronic) 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 calciphylaxis vs. erythema nodosum vs. dermatomyositis vs. panniculitis Mass of soft tissue of right lower extremity (Chronic) right inner upper thigh - ? calciphylaxis vs. erythema nodosum vs. dermatomyositis vs. panniculitis Hospital Course and Treatment Imaging Results: Clinical Impression(s) from Imaging Studies Chest X-Ray 12/07/17 06:27 IMPRESSION: No acute cardiopulmonary abnormalities or changes. There is stable mild enlargement of the cardiac silhouette without pulmonary edema or pleural effusion. There is minimal bibasilar atelectasis due to low volume inspiration. Electronically Signed: Christen Gold MD at 7:00 EDT Tel Direct: [phone], Service support , Chest X-Ray 12/08/17 10:33 IMPRESSION: The tip of the right PICC line catheter is at the junction of the superior vena cava and right atrium. The lungs are stable. Electronically Signed: Carlos Cai MD at 12:28 EDT Tel [phone], Service support , Consultations 12/07/17 13:06 Consult: Onc/Wound/clinical documentation manager Routine Comment: BLE ulcers- Goes to wound clinic Operations: None Procedures: None Summary of Care Provided: 72 year old F with multiple comorbidities including chronic heart failure with preserved EF, bilateral lower extremity pain/cellulitis, chronic A. fib on Xarelto admitted with generalized weakness for 3-4 weeks and bright red rectal bleed. Patient was been feeling progressively weak and had fall earlier on, came to the ED and got peña in the head in ER. Active management in the hospital was: 1. Acute GI bleed, off Xarelto, managed conservatively, H&H was stable, Dr. Alvarado saw her in the hospital, will follow up in the outpatient for colonoscopy. 2. Acute blood loss anemia secondary to GI bleed from Xarelto. She received 1 unit packed RBC transfusion, Hb remained stable, to be followed up in the outpatient. 3. Chronic A. fib with RVR, status post maze procedure, rate controlled, off Xarelto on account of GI bleed, discussed with cardiology, Dr. Childers, patient is okay to be off Xarelto as risks of bleeding outweighs risk of stroke. This was explained to the patient and she agreed. 4. Klebsiella pneumonia UTI, completed 5 days of IV ceftriaxone in the hospital. 5. Chronic heart failure with preserved EF, stable, as of acute exacerbation, on alternate day Lasix. 6. Peripheral arterial disease, bilateral lower extremity venous stasis ulcers, calciphylaxis/peripheral neuropathy chronic, started on prednisone taper for possible suspicion of pyoderma gangrenosum, will taper off steroids, wound nurse will follow-up in TCU 7. Diabetes mellitus type 2, blood sugars have been stable, on Accu-Cheks and insulin sliding scale Discharge Diet: Low fat/ Low Cholesterol, 2000 mg Sodium Diet, Carb Control Diet Discharge Activity: Return to Normal Activity Home Medications: Medications to take at Discharge Gabapentin [Neurontin] 100 mg PO 4X/DAY 09/29/17 Fluoxetine [Prozac] 20 mg PO DAILY 09/30/17 furosemide 40 mg tablet 20 mg PO QODAY tab 10/11/17 Ensure Clear 120 ml PO 4X/DAY 12/12/17 Metoprolol Tartrate [Lopressor (beta alok)] 25 mg PO BID 12/12/17 Oxycodone CR [Oxycontin] 15 mg PO DAILY 12/12/17 Oxycodone [Oxyir] 5 mg PO Q4H PRN PRN 5 Days #20 tablet 12/12/17 Pantoprazole Sodium [Protonix] 40 mg PO BID 12/12/17 Potassium Chloride [K-Tab ER] 10 meq PO QDAY 12/12/17 Prednisone [Deltasone] See Taper PO DAILY 12/12/17 Senna/Docusate Sodium [Senokot-S] 2 tab PO BID PRN #30 tab 12/12/17 Following Prescrptions Were Given to Patient: Oxycodone [Oxyir] 5 mg PO Q4H PRN PRN 5 Days #20 tablet PRN Reason: Breakthrough Pain (>4/10) Senna/Docusate Sodium [Senokot-S] 2 tab PO BID PRN #30 tab PRN Reason: constipation Primary Care Physician: Aaron Tidwell MD [Primary Care Provider] - Please follow up with your Primary Care Physician in: within 2 weeks after discharge Please Follow Up With: Huang Alvarado MD When: within 2 weeks Please Follow Up With: Epifanio Childers MD When: in 2 weeks Please Follow Up With: Aaron Tidwell MD When: within 2 weeks Disposition: Half-Way facility Minutes spent on discharge:: 30 - Lots of time spent in discharge planning and co-ordinating care Patient Condition:: Stable Medical Necessity - Tobacco Use Smoking Status: Never smoker Tobacco Use: Non-smoker Meaningful Use Info Meaningful Use Diagnoses (Choose all that apply): None applicable Code Visit Inpatient E&M: 44858 Disch Hosp
== END 2017-12-12 15:10 | disposition skilled nursing facility (03) | DRG 813 ==
LOC: ED 08:44 → ICU 08:56 → PCU 12-11 07:17 → ICU 12-12 07:39 → PCU 12-12 07:39
PROVIDERS: Emergency Medicine; Family Medicine; Internal Medicine Critical Care Medicine; Admitting Provider Internal Medicine; Emergency Provider Emergency Medicine; Family Provider Internal Medicine; PCP Internal Medicine; Visit Provider Internal Medicine
DX: D68.32 Hemorrhagic disorder due to extrinsic circulating anticoagulants (principal); I50.32 Chronic diastolic (congestive) heart failure; K92.2 Gastrointestinal hemorrhage, unspecified; G62.9 Polyneuropathy, unspecified; D62 Acute posthemorrhagic anemia; L03.115 Cellulitis of right lower limb; I48.2 Chronic atrial fibrillation; L03.116 Cellulitis of left lower limb; L97.919 Non-pressure chronic ulcer of unspecified part of right lower leg with unspecified severity; L97.929 Non-pressure chronic ulcer of unspecified part of left lower leg with unspecified severity; N30.90 Cystitis, unspecified without hematuria; T45.525A Adverse effect of antithrombotic drugs, initial encounter; I87.8 Other specified disorders of veins; R29.6 Repeated falls; G47.33 Obstructive sleep apnea (adult) (pediatric); B96.1 Klebsiella pneumoniae [K. pneumoniae] as the cause of diseases classified elsewhere; I87.2 Venous insufficiency (chronic) (peripheral); N18.3 Chronic kidney disease, stage 3 (moderate); E66.9 Obesity, unspecified; Z68.33 Body mass index [BMI] 33.0-33.9, adult; E87.6 Hypokalemia; I73.9 Peripheral vascular disease, unspecified; E11.9 Type 2 diabetes mellitus without complications; Z79.899 Other long term (current) drug therapy
CPT/HCPCS: 36415; 36569; 71045; 71046; 72100; 80048; 81001; 82274; 82962; 83605; 84484; 85014; 85018; 85025; 85027; 85610; 85730; 86850; 86900; 86920; 87641; 93005; 94002; 97110; 97116; 97162; 97165; 97530; 97802; 97803; 99283; 99285; C9132; J7030; J7040; P9016; A4216; J1940

== ENCOUNTER 2017-12-12 15:12 | Inpatient (IN) | payer MEDICARE, SELFPAY ==
--- NOTE | 2017-12-12 15:20 | NURSING ---
pt arrived via at 1505
[2017-12-12 15:30] VITALS: BP 124/69; PULSE 88; RESP 18; TEMP 37.1; O2SAT 92
[2017-12-12 16:27] VITALS: BMI 31.8
[2017-12-12 16:34] VITALS: BMI 31.9
[2017-12-12 17:01] LABS: Bedside Glucose 160 mg/dL (70-110)
--- NOTE | 2017-12-12 17:20 | NURSING ---
DR DON NOTIFIED OF PT WITH WHITE COATING ON TONGUE, PT DENIES PAIN, NO NEW ORDERS.
[2017-12-12 17:30] VITALS: BP 124/69; PULSE 88
[2017-12-12] MEDS: Gabapentin 100 MG Capsule PO ×2 (17:30→19:48)
[2017-12-12] MEDS: Metoprolol Tartrate 25 MG Tablet PO (17:30)
[2017-12-12] MEDS: Pantoprazole Sodium 40 MG Tablet PO (17:31)
[2017-12-12] MEDS: oxyCODONE 5 MG Tablet PO ×2 (17:39→22:01)
--- NOTE | 2017-12-12 20:41 | PCM.HP.STD ---
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 The patient is a 72 year old Female with below past medical history presented to [facility] Emergency Department 12/07/2017 with generalized weakness, frequent falls. 12/07/2017 EKG atrial fibrillation, ST&T wave abnormality, consider inferolateral ischemia. 2 falls in the past week. [place] weak, going to fall, lowered to the floor. Rectal x 1 week. On Xarelto for atrial fibrillation. IV placed. Hemoglobin 8.6, Hematocrit 20.1, K 5.3, CO2 17, BUN 33, Cr 1.53. INR 8.0, PTT 91.5. Troponin < 0.02, Lactic Acid 1.4. K Centra given for reversal Xarelto. 12/07/2017 Admit to ICU. IV fluids, IV Protonix 40MG Q12H for GI bleed. IV Ceftriaxone for K. Pneumoniae UTI. 12/07/2017 Dr. Mitchell recommended stopping morphine, hold gabapentin, use IV Fentanyl for pain. 12/08/2017 Dr. Alvarado recommended correcting anticoagulation, Endoscopy as outpatient. 12/08/2017 Chest X-ray showed right PICC line in position. Transfused 1 unit PRBC for anemia. Off anticoagulation for atrial fibrillation due to GI bleed. Prednisone taper for pyoderma gangrenosum of legs. 12/12/2017 Admit to TCU for rehabilitation, strengthening, wound care, prior to discharge home with spouse. Past Medical History Past Medical History (Chronic Problems): Chronic Problems (Last Updated 10/11/17 @ 09:06 by Gosia Martinez) Calcinosis (Chronic) Edema (Chronic) Pulmonary hypertension (Chronic) Atrial fibrillation (Chronic) Chronic diastolic heart failure (Chronic) Diabetes mellitus (Chronic) Chronic kidney disease (Chronic) Lumbar spinal stenosis (Chronic) PAOD (peripheral arterial occlusive disease) (Chronic) Venous stasis ulcer (Chronic) Depression (Chronic) Neuropathic pain (Chronic) Edema, lower extremity (Chronic) Pulmonary hypertension, secondary (Chronic) History of cardiac radiofrequency ablation (RFA) (Chronic) 1st part of MAZE procedure Lt Atrial Ablation 01/12/17 @ [facility] Localized edema (Chronic) Heart failure with 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 (Chronic) custodial current use of anticoagulant (Chronic) Chronic atrial fibrillation (Chronic) DCCV 10/10, 10/2015; MAZE procedure @ [facility] 01/12/2017; Status post placement of implantable loop recorder (Chronic) History of maze procedure (Chronic) Other secondary pulmonary hypertension (Chronic) Chronic diastolic (congestive) heart failure (Chronic) Symptomatic anemia (Chronic) Hypertension (Chronic) Type 2 diabetes mellitus (Chronic) Lung nodule (Chronic) Chronic kidney disease, stage 3 (Chronic) 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 calciphylaxis vs. erythema nodosum vs. dermatomyositis vs. panniculitis Mass of soft tissue of right lower extremity (Chronic) right inner upper thigh - ? calciphylaxis vs. erythema nodosum vs. dermatomyositis vs. panniculitis Allergies amlodipine besylate [From Norvasc] Allergy (Verified 12/07/17 06:11) Unknown Shortness of breath ceftriaxone Allergy (Verified 12/07/17 06:11) Rash doxazosin mesylate [From Cardura] Allergy (Verified 12/07/17 06:11) Unknown Pt doesn't remember doxycycline Allergy (Verified 12/07/17 06:11) Unknown Pt doesn't remember enalapril maleate [From Vasotec] Allergy (Verified 12/07/17 06:11) Rash enalaprilat dihydrate [From Vasotec] Allergy (Verified 12/07/17 06:11) Rash hydroxyzine HCl [From Vistaril] Allergy (Verified 12/07/17 06:11) Rash hydroxyzine pamoate [From Vistaril] Allergy (Verified 12/07/17 06:11) Rash meperidine HCl [From Demerol] Allergy (Verified 12/07/17 06:11) Rash Sulfa (Sulfonamide Antibiotics) Allergy (Verified 12/07/17 06:11) Hives sulfamethoxazole [From Bactrim] Allergy (Verified 12/04/17 05:42) Hives trimethoprim [From Bactrim] Allergy (Verified 12/04/17 05:42) Hives Home Medications: Ambulatory Orders Medication Instructions Recorded Gabapentin [Neurontin] 100 mg PO 4X/DAY 09/29/17 Fluoxetine [Prozac] 20 mg PO DAILY 09/30/17 furosemide 40 mg tablet 20 mg PO QODAY tab 10/11/17 Ensure Clear 120 ml PO 4X/DAY 12/12/17 Metoprolol Tartrate [Lopressor 25 mg PO BID 12/12/17 (beta alok)] Oxycodone CR [Oxycontin] 15 mg PO DAILY 12/12/17 Oxycodone [Oxyir] 5 mg PO Q4H PRN PRN 5 Days #20 12/12/17 tablet Pantoprazole Sodium [Protonix] 40 mg PO BID 12/12/17 Potassium Chloride [K-Tab ER] 10 meq PO QDAY 12/12/17 Prednisone [Deltasone] See Taper PO DAILY 12/12/17 Senna/Docusate Sodium [Senokot-S] 2 tab PO BID PRN #30 tab 12/12/17 Surgical History: cataract, cholecystectomy, hysterectomy, - - s/p MAZE procedure, loop recorder. 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: No pertinent COMMUNITY OUTREACH COORDINATOR history Lives: Spouse/ Significant Other Smoking Status: Never smoker Tobacco Use: Non-smoker Alcohol: None Drugs: None - *Family History Maternal History Items: No pertinent history Paternal History Items: No pertinent history Review of Systems Constitutional: Denies: Chills, Fever, Weight Change HEENT: Denies: Head Aches, Sinus Congestion, Sinus Drainage Cardiovascular: Denies: Chest Pain, Palpitations Respiratory: Denies: Cough, Shortness of breath at rest, Sputum production Gastrointestinal: Denies: Abdominal Pain, Nausea, Vomiting Genitourinary: Denies: Dysuria Musculoskeletal: Reports: Leg Pain - Bilateral from ulcers.. Denies: Joint Pain, Joint Tenderness Skin: Denies: Rash, Wounds Neurological: Denies: Numbness, Tingling, Focal weakness Psychiatric: Denies: Anxiety, Depression, Homicidal Ideations, Suicidal Ideations Hematologic/ Lymphatic: Denies: Easy Bruising, Easy Bleeding VTE Information - Inpt Only VTE Present on Admission: No VTE Mechan Device Prophylaxis: Knee High KARLY Hose VTE Pharm Prophylaxis ordered?: No Reason prophylaxis not ordered:: Medical Contraindication Patient Problems: Active and Suspected Problems (Last Updated 10/11/17 @ 09:06 by Gosia Martinez) Weakness (Acute) Anemia (Acute) Hypokalemia (Acute) - Physical Exam General: Alert, Oriented x3, Cooperative HEENT: Atraumatic, PERRLA, EOMI, Normocephalic Neck: Supple, No JVD, Negative Carotid Bruits Lungs: Clear to auscultation, Normal air movement Cardiovascular: Regular rate, No murmurs Abdomen: Bowel Sounds Present, Soft, Non Tender Extremities: No edema, Capillary Refill Less than 3 Seconds, - - Bilateral lower extremities wrapped with kerlex, ABBIE wraps. Skin: No rashes, No breakdown Musculoskeletal: No Tenderness to Palpation of Joints or Extremities Neurological: Cranial nerves II-XII grossly intact Psych/Mental Status: Normal Affect, Appropriate Vital Signs Temp Pulse Resp BP Pulse Ox 98.7 F 88 18 124/69 H 92 12/12/17 15:30 12/12/17 17:30 12/12/17 15:30 12/12/17 17:30 12/12/17 15:30 Oxygen Delivery Method Room Air Weight: 81.675 kg Body Mass Index (BMI) 31.8 Finger Stick Blood Glucose 124 Intake and Output for Last 24 Hours 12/10/17 12/11/17 12/12/17 23:59 23:59 23:59 Intake Total 220 / 220 Balance 220 / 220 POC Glucose 12/12/17 16:54 POC Glucose 160 H Assessment/Plan Active and Suspected Problems (Last Updated 10/11/17 @ 09:06 by Gosia Martinez) Weakness (Acute) Anemia (Acute) Hypokalemia (Acute) 72 year old female with below past medical history hospitalized for gastrointestinal bleeding secondary to Xarelto coagulopathy, complicated by anemia requiring 1 unit PRBC transfusion, K. Pneumoniae UTI, pyoderma gangrenosum of legs, admitted to TCU for debility, here for rehabilitation, strengthening, wound care, prior to discharge home with spouse. Debility - PT/OT. Pain - Tylenol 1000MG Q8H PRN mild pain, Oxycontin CR 15MG daily, Oxycodone 5MG Q4H PRN severe pain. Bowel - Miralax 17GM daily, Senna/colace 2 tablets BID, Dulcolax 10MG OR daily PRN. Pneumonia vaccination - Administer Prevnar 13 and/or Pneumovax 23 as necessary. DVT prophylaxis - Hold due to recent GI bleed. Nutrition - Ensure 120ML 4x/day. Depression - Fluoxetine 20MG daily. Edema - Lasix 20MG every other day. Neuropathic pain - Gabapentin 100MG 4x/day. Atrial Fibrillation - Metoprolol 25MG BID, hold anticoagulation due to recent GI bleed. GI bleed - Pantoprazole 40MG BID, monitor CBCD. Hypokalemia - K- Dur 10MEQ daily. Pyoderma Gangrenosum - Prednisone taper, wound care.
--- NOTE | 2017-12-12 20:47 | HP.PCM_ITS ---
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 The patient is a 72 year old Female with below past medical history presented to [facility] Emergency Department 12/07/2017 with generalized weakness, frequent falls. 12/07/2017 EKG atrial fibrillation, ST&T wave abnormality, consider inferolateral ischemia. 2 falls in the past week. [place] weak, going to fall, lowered to the floor. Rectal x 1 week. On Xarelto for atrial fibrillation. IV placed. Hemoglobin 8.6, Hematocrit 20.1, K 5.3, CO2 17, BUN 33, Cr 1.53. INR 8.0, PTT 91.5. Troponin < 0.02, Lactic Acid 1.4. K Centra given for reversal Xarelto. 12/07/2017 Admit to ICU. IV fluids, IV Protonix 40MG Q12H for GI bleed. IV Ceftriaxone for K. Pneumoniae UTI. 12/07/2017 Dr. Mitchell recommended stopping morphine, hold gabapentin, use IV Fentanyl for pain. 12/08/2017 Dr. Alvarado recommended correcting anticoagulation, Endoscopy as outpatient. 12/08/2017 Chest X-ray showed right PICC line in position. Transfused 1 unit PRBC for anemia. Off anticoagulation for atrial fibrillation due to GI bleed. Prednisone taper for pyoderma gangrenosum of legs. 12/12/2017 Admit to TCU for rehabilitation, strengthening, wound care, prior to discharge home with spouse. Past Medical History Past Medical History (Chronic Problems): Chronic Problems (Last Updated 10/11/17 @ 09:06 by Gosia Martinez) Calcinosis (Chronic) Edema (Chronic) Pulmonary hypertension (Chronic) Atrial fibrillation (Chronic) Chronic diastolic heart failure (Chronic) Diabetes mellitus (Chronic) Chronic kidney disease (Chronic) Lumbar spinal stenosis (Chronic) PAOD (peripheral arterial occlusive disease) (Chronic) Venous stasis ulcer (Chronic) Depression (Chronic) Neuropathic pain (Chronic) Edema, lower extremity (Chronic) Pulmonary hypertension, secondary (Chronic) History of cardiac radiofrequency ablation (RFA) (Chronic) 1st part of MAZE procedure Lt Atrial Ablation 01/12/17 @ [facility] Localized edema (Chronic) Heart failure with 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 (Chronic) [facility] current use of anticoagulant (Chronic) Chronic atrial fibrillation (Chronic) [facility] 10/10, 10/2015; MAZE procedure @ [facility] 01/12/2017; Status post placement of implantable loop recorder (Chronic) History of maze procedure (Chronic) Other secondary pulmonary hypertension (Chronic) Chronic diastolic (congestive) heart failure (Chronic) Symptomatic anemia (Chronic) Hypertension (Chronic) Type 2 diabetes mellitus (Chronic) Lung nodule (Chronic) Chronic kidney disease, stage 3 (Chronic) 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 calciphylaxis vs. erythema nodosum vs. dermatomyositis vs. panniculitis Mass of soft tissue of right lower extremity (Chronic) right inner upper thigh - ? calciphylaxis vs. erythema nodosum vs. dermatomyositis vs. panniculitis Allergies amlodipine besylate [From Norvasc] Allergy (Verified 12/07/17 06:11) Unknown Shortness of breath ceftriaxone Allergy (Verified 12/07/17 06:11) Rash doxazosin mesylate [From Cardura] Allergy (Verified 12/07/17 06:11) Unknown Pt doesn't remember doxycycline Allergy (Verified 12/07/17 06:11) Unknown Pt doesn't remember enalapril maleate [From Vasotec] Allergy (Verified 12/07/17 06:11) Rash enalaprilat dihydrate [From Vasotec] Allergy (Verified 12/07/17 06:11) Rash hydroxyzine HCl [From Vistaril] Allergy (Verified 12/07/17 06:11) Rash hydroxyzine pamoate [From Vistaril] Allergy (Verified 12/07/17 06:11) Rash meperidine HCl [From Demerol] Allergy (Verified 12/07/17 06:11) Rash Sulfa (Sulfonamide Antibiotics) Allergy (Verified 12/07/17 06:11) Hives sulfamethoxazole [From Bactrim] Allergy (Verified 12/04/17 05:42) Hives trimethoprim [From Bactrim] Allergy (Verified 12/04/17 05:42) Hives Home Medications: Ambulatory Orders Medication Instructions Recorded Gabapentin [Neurontin] 100 mg PO 4X/DAY 09/29/17 Fluoxetine [Prozac] 20 mg PO DAILY 09/30/17 furosemide 40 mg tablet 20 mg PO QODAY tab 10/11/17 Ensure Clear 120 ml PO 4X/DAY 12/12/17 Metoprolol Tartrate [Lopressor 25 mg PO BID 12/12/17 (beta alok)] Oxycodone CR [Oxycontin] 15 mg PO DAILY 12/12/17 Oxycodone [Oxyir] 5 mg PO Q4H PRN PRN 5 Days #20 12/12/17 tablet Pantoprazole Sodium [Protonix] 40 mg PO BID 12/12/17 Potassium Chloride [K-Tab ER] 10 meq PO QDAY 12/12/17 Prednisone [Deltasone] See Taper PO DAILY 12/12/17 Senna/Docusate Sodium [Senokot-S] 2 tab PO BID PRN #30 tab 12/12/17 Surgical History: cataract, cholecystectomy, hysterectomy, - - s/p MAZE procedure, loop recorder. 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 history Lives: Spouse/ Significant Other Smoking Status: Never smoker Tobacco Use: Non-smoker Alcohol: None Drugs: None - *Family History Maternal History Items: No pertinent history Paternal History Items: No pertinent history Review of Systems Constitutional: Denies: Chills, Fever, Weight Change HEENT: Denies: Head Aches, Sinus Congestion, Sinus Drainage Cardiovascular: Denies: Chest Pain, Palpitations Respiratory: Denies: Cough, Shortness of breath at rest, Sputum production Gastrointestinal: Denies: Abdominal Pain, Nausea, Vomiting Genitourinary: Denies: Dysuria Musculoskeletal: Reports: Leg Pain - Bilateral from ulcers.. Denies: Joint Pain , Joint Tenderness Skin: Denies: Rash, Wounds Neurological: Denies: Numbness, Tingling, Focal weakness Psychiatric: Denies: Anxiety, Depression, Homicidal Ideations, Suicidal Ideations Hematologic/ Lymphatic: Denies: Easy Bruising, Easy Bleeding VTE Information - Inpt Only VTE Present on Admission: No VTE Mechan Device Prophylaxis: Knee High KARLY Hose VTE Pharm Prophylaxis ordered?: No Reason prophylaxis not ordered:: Medical Contraindication Patient Problems: Active and Suspected Problems (Last Updated 10/11/17 @ 09:06 by Gosia Martinez ) Weakness (Acute) Anemia (Acute) Hypokalemia (Acute) - Physical Exam General: Alert, Oriented x3, Cooperative HEENT: Atraumatic, PERRLA, EOMI, Normocephalic Neck: Supple, No JVD, Negative Carotid Bruits Lungs: Clear to auscultation, Normal air movement Cardiovascular: Regular rate, No murmurs Abdomen: Bowel Sounds Present, Soft, Non Tender Extremities: No edema, Capillary Refill Less than 3 Seconds, - - Bilateral lower extremities wrapped with kerlex, ABBIE wraps. Skin: No rashes, No breakdown Musculoskeletal: No Tenderness to Palpation of Joints or Extremities Neurological: Cranial nerves II-XII grossly intact Psych/Mental Status: Normal Affect, Appropriate Vital Signs Temp Pulse Resp BP Pulse Ox 98.7 F 88 18 124/69 H 92 12/12/17 15:30 12/12/17 17:30 12/12/17 15:30 12/12/17 17:30 12/12/17 15:30 Oxygen Delivery Method Room Air Weight: 81.675 kg Body Mass Index (BMI) 31.8 Finger Stick Blood Glucose 124 Intake and Output for Last 24 Hours 12/10/17 12/11/17 12/12/17 23:59 23:59 23:59 Intake Total 220 / 220 Balance 220 / 220 POC Glucose 12/12/17 16:54 POC Glucose 160 H Assessment/Plan Active and Suspected Problems (Last Updated 10/11/17 @ 09:06 by Gosia Martinez ) Weakness (Acute) Anemia (Acute) Hypokalemia (Acute) 72 year old female with below past medical history hospitalized for gastrointestinal bleeding secondary to Xarelto coagulopathy, complicated by anemia requiring 1 unit PRBC transfusion, K. Pneumoniae UTI, pyoderma gangrenosum of legs, admitted to TCU for debility, here for rehabilitation, strengthening, wound care, prior to discharge home with spouse. * Debility - PT/OT. * Pain - Tylenol 1000MG Q8H PRN mild pain, Oxycontin CR 15MG daily, Oxycodone 5MG Q4H PRN severe pain. * Bowel - Miralax 17GM daily, Senna/colace 2 tablets BID, Dulcolax 10MG PA daily PRN. * Pneumonia vaccination - Administer Prevnar 13 and/or Pneumovax 23 as necessary. * DVT prophylaxis - Hold due to recent GI bleed. * Nutrition - Ensure 120ML 4x/day. * Depression - Fluoxetine 20MG daily. * Edema - Lasix 20MG every other day. * Neuropathic pain - Gabapentin 100MG 4x/day. * Atrial Fibrillation - Metoprolol 25MG BID, hold anticoagulation due to recent GI bleed. * GI bleed - Pantoprazole 40MG BID, monitor CBCD. * Hypokalemia - K- Dur 10MEQ daily. * Pyoderma Gangrenosum - Prednisone taper, wound care.
[2017-12-12 21:01] LABS: Bedside Glucose 236 mg/dL (70-110)
--- NOTE | 2017-12-12 23:06 | NURSING ---
Pt bipap mask at home, spouse will in tomorrow. Oxygen via NC at 2L placed tonight.
[2017-12-13] MEDS: oxyCODONE 5 MG Tablet PO ×3 (01:55→19:43)
[2017-12-13] MEDS: oxyCODONE CR 15 MG Tablet PO (05:24)
[2017-12-13] MEDS: FLUoxetine 20 MG Capsule PO ×2 (05:26→05:32)
[2017-12-13] MEDS: Pantoprazole Sodium 40 MG Tablet PO ×2 (05:26→17:18)
[2017-12-13] MEDS: Furosemide 20 MG Tablet PO (05:26)
[2017-12-13] MEDS: Senna/Docusate Sodium 1 Tablet 2 TABLET PO (05:33)
[2017-12-13 06:13] VITALS: BP 129/63; PULSE 98
[2017-12-13] MEDS: Metoprolol Tartrate 25 MG Tablet PO ×2 (06:13→17:17)
[2017-12-13 06:31] LABS: Bedside Glucose 84 mg/dL (70-110)
[2017-12-13 06:40] LABS: Absolute Lymphocyte Count 1.75 X10^3/ul (0.83-4.51); Absolute Neutrophil Count 18.4 X10^3/uL (2.0-7.7); Basophil# 0.01 X10^3/uL; Hemoglobin 9.1 g/dl (12.0-15.0); Lymphocyte # 1.75 X10^3/ul (4.0); Lymphocyte % 8.1 % (19-41); Mean Corp Hgb Conc 30.3 g/gl (32-36); Mean Corpuscular Hgb 23.1 pg (27.0-32.0); Mean Corpuscular Volume 76.1 fL (81-99); Mean Platelet Vol. 9.7 fl (6.2-12.0); Monocyte# 1.39 X10^3/uL; Monocyte% 6.4 % (0-10); Neutrophil # 18.42 X10^3/uL (2.7-7.7); Neutrophil % 85.3 % (47-70); Platelet Count 391 K/mm3 (150-450); RBC Distribution Width SD 68.4 fl (35.1-43.9); Red Blood Count 3.94 M/mm3 (4.2-5.4); White Blood Count 21.6 K/mm3 (4.4-11.0)
[2017-12-13 06:49] LABS: Anion Gap 7 (5-15); BUN 23 mg/dL (7-18); BUN/Creat Ratio 20.9 RATIO (10-20); Calcium,Total 8.5 mg/dL (8.5-10.1); Chloride 105 mmol/L (98-107); EST Glomerular Filtration Rate 52 mL/min (>60); Est Glom Filt Rate - Afr Amer 63 mL/min (>60); Glucose 103 mg/dL (74-106); Potassium 3.5 mmol/L (3.5-5.1); Sodium Level 141 mmol/L (136-145)
[2017-12-13 06:54] LABS: Differential Indicated SCAN CRITERIA MET; POSITIVE COUNT NO; POSITIVE DIFFERENTIAL NO; POSITIVE MORPHOLOGY YES
[2017-12-13 07:13] LABS: Anisocytosis 3+; Differential Comment SCANNED; Hypochromasia 2+; Microcytosis 2+; Polychromasia RARE; Target Cells 2+
[2017-12-13] MEDS: Gabapentin 100 MG Capsule PO ×4 (08:07→20:58)
[2017-12-13] MEDS: predniSONE 20 MG Tablet 10 MG PO (08:07)
[2017-12-13 10:00] VITALS: PULSE 88; RESP 16; O2SAT 95
[2017-12-13] MEDS: Tuberculin,Purif.prot.deriv. 50 TU/ML Vial 5 ML ID (10:16)
--- NOTE | 2017-12-13 10:41 | CASEMGMT ---
Insurance Clinical information faxed. Pending continued stay approval at this time. Auth# Pending at this time. Margo WALTERS, CARTRIDGE LOADING OPERATOR
--- NOTE | 2017-12-13 10:48 | PCM.PN.RX ---
<Alberto Villalobos Christiane - Last Filed: 12/13/17 10:48> Progress Note - Pharmacy Subjective: TCU Admission Objective: Allergies amlodipine besylate [From Norvasc] Allergy (Verified 12/07/17 06:11) Unknown Shortness of breath ceftriaxone Allergy (Verified 12/07/17 06:11) Rash doxazosin mesylate [From Cardura] Allergy (Verified 12/07/17 06:11) Unknown Pt doesn't remember doxycycline Allergy (Verified 12/07/17 06:11) Unknown Pt doesn't remember enalapril maleate [From Vasotec] Allergy (Verified 12/07/17 06:11) Rash enalaprilat dihydrate [From Vasotec] Allergy (Verified 12/07/17 06:11) Rash hydroxyzine HCl [From Vistaril] Allergy (Verified 12/07/17 06:11) Rash hydroxyzine pamoate [From Vistaril] Allergy (Verified 12/07/17 06:11) Rash meperidine HCl [From Demerol] Allergy (Verified 12/07/17 06:11) Rash Sulfa (Sulfonamide Antibiotics) Allergy (Verified 12/07/17 06:11) Hives sulfamethoxazole [From Bactrim] Allergy (Verified 12/04/17 05:42) Hives trimethoprim [From Bactrim] Allergy (Verified 12/04/17 05:42) Hives Home Medications Medication Instructions Recorded Gabapentin [Neurontin] 100 mg PO 4X/DAY 09/29/17 Fluoxetine [Prozac] 20 mg PO DAILY 09/30/17 furosemide 40 mg tablet 20 mg PO QODAY tab 10/11/17 Ensure Clear 120 ml PO 4X/DAY 12/12/17 Metoprolol Tartrate [Lopressor 25 mg PO BID 12/12/17 (beta brandt)] Oxycodone CR [Oxycontin] 15 mg PO DAILY 12/12/17 Oxycodone [Oxyir] 5 mg PO Q4H PRN PRN 5 Days #20 12/12/17 tablet Pantoprazole Sodium [Protonix] 40 mg PO BID 12/12/17 Potassium Chloride [K-Tab ER] 10 meq PO QDAY 12/12/17 Prednisone [Deltasone] See Taper PO DAILY 12/12/17 Senna/Docusate Sodium [Senokot-S] 2 tab PO BID PRN #30 tab 12/12/17 Current Medications Generic Name Dose Route Start Last Admin Trade Name Freq PRN Reason Stop Dose Admin Acetaminophen 1,000 mg 12/12/17 21:03 Tylenol PO Q8H PRN PRN MILD PAIN (1-3/10) Bisacodyl 10 mg 12/12/17 21:04 Dulcolax RECTAL DAILY PRN Constipation Fluoxetine HCl 20 mg 12/13/17 06:00 12/13/17 05:32 Prozac PO 20 mg DAILY [facility] Administration Furosemide 20 mg 12/13/17 06:00 12/13/17 05:26 Lasix PO 20 mg QODAY@0600 [facility] Administration Gabapentin 100 mg 12/12/17 17:00 12/13/17 08:07 Neurontin PO 100 mg 4X/DAYCM [facility] Administration Heparin Sodium (Beef Lung) 500 unit 12/13/17 01:03 Heparin 500 Unit/5 Ml (100/Ml) IV UD PRN HEPARIN FLUSH Metoprolol Tartrate 25 mg 12/12/17 18:00 12/13/17 06:13 Lopressor (Beta Brandt) PO 25 mg BID [facility] Administration Nutritional Formula (Lactose Free) 120 ml 12/13/17 12:00 Glucerna Shake PO 4X/DAY [facility] Oxycodone HCl 5 mg 12/12/17 15:21 12/13/17 01:55 Oxyir PO 5 mg Q4H PRN PRN Administration BREAKTHROUGH PAIN (>4/10) Oxycodone HCl 15 mg 12/13/17 06:00 12/13/17 05:24 Oxycontin PO 15 mg DAILY [facility] Administration Pantoprazole Sodium 40 mg 12/12/17 18:00 12/13/17 05:26 Protonix PO 40 mg BID [facility] Administration Polyethylene Glycol 17 gm 12/13/17 06:00 12/13/17 05:32 Miralax PO Not Given DAILY [facility] Polysaccharide Iron Complex 150 mg 12/14/17 08[facility]00 [facility] Potassium Chloride 10 meq 12/13/17 08:00 12/13/17 08:07 K-Dur PO 10 meq DAILYCM [facility] Administration Prednisone 40 mg 12/13/17 08:00 12/13/17 08:07 PO 12/24/17 07:59 40 mg DAILY@0800 [facility] Administration Taper Senna/Docusate Sodium 2 tablet 12/13/17 06:00 12/13/17 05:33 Senokot-S, Gabriella-Colace PO 1 tablet BID [facility] Administration Sodium Chloride 10 - 20 ml 12/13/17 01:03 IV UD PRN PICC FLUSH Tuberculin PPD 5 tu 12/20/17 10:00 Tubersol, Aplisol, Ppd ID 12/20/17 10:01 X1 ONE Problem List (Last Updated 10/11/17 @ 09:06 by Gosia Martinez) Weakness (Acute) Anemia (Acute) Edema (Chronic) Pulmonary hypertension (Chronic) Atrial fibrillation (Chronic) Chronic diastolic heart failure (Chronic) Diabetes mellitus (Chronic) Chronic kidney disease (Chronic) Lumbar spinal stenosis (Chronic) PAOD (peripheral arterial occlusive disease) (Chronic) Venous stasis ulcer (Chronic) Depression (Chronic) Neuropathic pain (Chronic) Hypokalemia (Acute) Vital Signs Temp Pulse Resp BP Pulse Ox 98.7 F 98 18 129/63 H 92 12/12/17 15:30 12/13/17 06:13 12/12/17 15:30 12/13/17 06:13 12/12/17 15:30 Oxygen Delivery Method Room Air Weight: 81.675 kg Body Mass Index (BMI) 31.8 Finger Stick Blood Glucose 124 Sodium 141 mmol/L (136-145) 12/13/17 06:10 Potassium 3.5 mmol/L (3.5-5.1) 12/13/17 06:10 Chloride 105 mmol/L (98-107) 12/13/17 06:10 Carbon Dioxide 29.0 mmol/L (21.0-32.0) 12/13/17 06:10 Anion Gap 7 (5-15) 12/13/17 06:10 BUN 23 mg/dL (7-18) H 12/13/17 06:10 Creatinine 1.10 mg/dL (0.55-1.02) H 12/13/17 06:10 Est GFR (MDRD) Af Amer 63 mL/min (>60) 12/13/17 06:10 Est GFR (MDRD) Non-Af 52 mL/min (>60) L 12/13/17 06:10 BUN/Creatinine Ratio 20.9 RATIO (10-20) H 12/13/17 06:10 Glucose 103 mg/dL (74-106) 12/13/17 06:10 Assessment/Plan: 1) Pain APAP for mild pain, oxycodone for breakthrough pain, oxyContin daily, gabapentin 4x daily. Continue to monitor daily pain scores, prn medication use. 2) AFib Metoprolol twice daily. BP/HR within goal ranges. Continue to monitor BP/HR. 3) GI Pantoprazole daily. Continue to monitor s/s GI distress. 4) Pyoderma Gangrenosum Prednisone taper. Continue to monitor clinically. 5) Nutrition Fe, Glucerna. Continue to monitor clinically. 6) Edema Furosemide/KCl. K wnl, BUN/SCr at baseline. Continue to monitor electrolytes, for swelling. Psychotropic Medications: 7) Depression Fluoxetine daily. Continue to monitor s/s depression. Unnecessary Medications: None Bowel Regimen: 8) Senna/s, PEG, prn bisacodyl. Continue to monitor prn medication use, for constipation/diarrhea. Date of Note:: 12/13/17 - Provider Comments Provider responsibility: Provider responsible to enter orders to implement recommendations <Ari Rainey Chi - Last Filed: 12/13/17 17:45> Progress Note - Pharmacy Subjective: [] Objective: Allergies amlodipine besylate [From Norvasc] Allergy (Verified 12/07/17 06:11) Unknown Shortness of breath ceftriaxone Allergy (Verified 12/07/17 06:11) Rash doxazosin mesylate [From Cardura] Allergy (Verified 12/07/17 06:11) Unknown Pt doesn't remember doxycycline Allergy (Verified 12/07/17 06:11) Unknown Pt doesn't remember enalapril maleate [From Vasotec] Allergy (Verified 12/07/17 06:11) Rash enalaprilat dihydrate [From Vasotec] Allergy (Verified 12/07/17 06:11) Rash hydroxyzine HCl [From Vistaril] Allergy (Verified 12/07/17 06:11) Rash hydroxyzine pamoate [From Vistaril] Allergy (Verified 12/07/17 06:11) Rash meperidine HCl [From Demerol] Allergy (Verified 12/07/17 06:11) Rash Sulfa (Sulfonamide Antibiotics) Allergy (Verified 12/07/17 06:11) Hives sulfamethoxazole [From Bactrim] Allergy (Verified 12/04/17 05:42) Hives trimethoprim [From Bactrim] Allergy (Verified 12/04/17 05:42) Hives Home Medications Medication Instructions Recorded Gabapentin [Neurontin] 100 mg PO 4X/DAY 09/29/17 Fluoxetine [Prozac] 20 mg PO DAILY 09/30/17 furosemide 40 mg tablet 20 mg PO QODAY tab 10/11/17 Ensure Clear 120 ml PO 4X/DAY 12/12/17 Metoprolol Tartrate [Lopressor 25 mg PO BID 12/12/17 (beta brandt)] Oxycodone CR [Oxycontin] 15 mg PO DAILY 12/12/17 Oxycodone [Oxyir] 5 mg PO Q4H PRN PRN 5 Days #20 12/12/17 tablet Pantoprazole Sodium [Protonix] 40 mg PO BID 12/12/17 Potassium Chloride [K-Tab ER] 10 meq PO QDAY 12/12/17 Prednisone [Deltasone] See Taper PO DAILY 12/12/17 Senna/Docusate Sodium [Senokot-S] 2 tab PO BID PRN #30 tab 12/12/17 Current Medications Generic Name Dose Route Start Last Admin Trade Name Freq PRN Reason Stop Dose Admin Acetaminophen 1,000 mg 12/12/17 21:03 Tylenol PO Q8H PRN PRN MILD PAIN (1-3/10) Bisacodyl 10 mg 12/12/17 21:04 Dulcolax RECTAL DAILY PRN Constipation Fluoxetine HCl 20 mg 12/13/17 06:00 12/13/17 05:32 Prozac PO 20 mg DAILY [facility] Administration Furosemide 20 mg 12/13/17 06:00 12/13/17 05:26 Lasix PO 20 mg QODAY@0600 [facility] Administration Gabapentin 100 mg 12/12/17 17:00 12/13/17 17:18 Neurontin PO 100 mg 4X/DAYCM [facility] Administration Heparin Sodium (Beef Lung) 500 unit 12/13/17 01:03 Heparin 500 Unit/5 Ml (100/Ml) IV UD PRN HEPARIN FLUSH Metoprolol Tartrate 25 mg 12/12/17 18:00 12/13/17 17:17 Lopressor (Beta Brandt) PO 25 mg BID [facility] Administration Nutritional Formula (Lactose Free) 120 ml 12/13/17 12:00 12/13/17 17:18 Glucerna Shake PO Not Given 4X/DAY [facility] Oxycodone HCl 5 mg 12/12/17 15:21 12/13/17 11:04 Oxyir PO 5 mg Q4H PRN PRN Administration BREAKTHROUGH PAIN (>4/10) Oxycodone HCl 15 mg 12/13/17 06:00 12/13/17 05:24 Oxycontin PO 15 mg DAILY [facility] Administration Pantoprazole Sodium 40 mg 12/12/17 18:00 12/13/17 17:18 Protonix PO 40 mg BID [facility] Administration Polyethylene Glycol 17 gm 12/13/17 06:00 12/13/17 05:32 Miralax PO Not Given DAILY [facility] Polysaccharide Iron Complex 150 mg 12/14/17 08:00 [facility] Potassium Chloride 10 meq 12/13/17 08:00 12/13/17 08:07 K-Dur PO 10 meq DAILYCM [facility] Administration Prednisone 40 mg 12/13/17 08:00 12/13/17 08:07 PO 12/24/17 07:59 40 mg DAILY@0800 [facility] Administration Taper Senna/Docusate Sodium 2 tablet 12/13/17 06:00 12/13/17 17:18 Senokot-S, Gabriella-Colace PO Not Given BID [facility] Sodium Chloride 10 - 20 ml 12/13/17 01:03 IV UD PRN PICC FLUSH Tuberculin PPD 5 tu 12/20/17 10:00 Tubersol, Aplisol, Ppd ID 12/20/17 10:01 X1 ONE Problem List (Last Updated 10/11/17 @ 09:06 by Gosia Martinez) Weakness (Acute) Anemia (Acute) Edema (Chronic) Pulmonary hypertension (Chronic) Atrial fibrillation (Chronic) Chronic diastolic heart failure (Chronic) Diabetes mellitus (Chronic) Chronic kidney disease (Chronic) Lumbar spinal stenosis (Chronic) PAOD (peripheral arterial occlusive disease) (Chronic) Venous stasis ulcer (Chronic) Depression (Chronic) Neuropathic pain (Chronic) Hypokalemia (Acute) Vital Signs Temp Pulse Resp BP Pulse Ox 98.1 F 105 H 20 H 107/57 L 105 12/13/17 15:37 12/13/17 17:17 12/13/17 15:37 12/13/17 15:37 12/13/17 15:37 Oxygen Delivery Method Room Air Weight: 81.675 kg Body Mass Index (BMI) 31.8 Finger Stick Blood Glucose 124 Sodium 141 mmol/L (136-145) 12/13/17 06:10 Potassium 3.5 mmol/L (3.5-5.1) 12/13/17 06:10 Chloride 105 mmol/L (98-107) 12/13/17 06:10 Carbon Dioxide 29.0 mmol/L (21.0-32.0) 12/13/17 06:10 Anion Gap 7 (5-15) 12/13/17 06:10 BUN 23 mg/dL (7-18) H 12/13/17 06:10 Creatinine 1.10 mg/dL (0.55-1.02) H 12/13/17 06:10 Est GFR (MDRD) Af Amer 63 mL/min (>60) 12/13/17 06:10 Est GFR (MDRD) Non-Af 52 mL/min (>60) L 12/13/17 06:10 BUN/Creatinine Ratio 20.9 RATIO (10-20) H 12/13/17 06:10 Glucose 103 mg/dL (74-106) 12/13/17 06:10 Assessment/Plan: Psychotropic Medications: Unnecessary Medications: Bowel Regimen: - Provider Comments Provider responsibility: Provider responsible to enter orders to implement recommendations Provider Comments to Recommendations by Pharmacy: Agree
--- NOTE | 2017-12-13 10:55 | PHA.CONS_ITS ---
<Alberto Villalobos Christiane - Last Filed: 12/13/17 10:48> Progress Note - Pharmacy Subjective: TCU Admission Objective: Allergies amlodipine besylate [From Norvasc] Allergy (Verified 12/07/17 06:11) Unknown Shortness of breath ceftriaxone Allergy (Verified 12/07/17 06:11) Rash doxazosin mesylate [From Cardura] Allergy (Verified 12/07/17 06:11) Unknown Pt doesn't remember doxycycline Allergy (Verified 12/07/17 06:11) Unknown Pt doesn't remember enalapril maleate [From Vasotec] Allergy (Verified 12/07/17 06:11) Rash enalaprilat dihydrate [From Vasotec] Allergy (Verified 12/07/17 06:11) Rash hydroxyzine HCl [From Vistaril] Allergy (Verified 12/07/17 06:11) Rash hydroxyzine pamoate [From Vistaril] Allergy (Verified 12/07/17 06:11) Rash meperidine HCl [From Demerol] Allergy (Verified 12/07/17 06:11) Rash Sulfa (Sulfonamide Antibiotics) Allergy (Verified 12/07/17 06:11) Hives sulfamethoxazole [From Bactrim] Allergy (Verified 12/04/17 05:42) Hives trimethoprim [From Bactrim] Allergy (Verified 12/04/17 05:42) Hives Home Medications Medication Instructions Recorded Gabapentin [Neurontin] 100 mg PO 4X/DAY 09/29/17 Fluoxetine [Prozac] 20 mg PO DAILY 09/30/17 furosemide 40 mg tablet 20 mg PO QODAY tab 10/11/17 Ensure Clear 120 ml PO 4X/DAY 12/12/17 Metoprolol Tartrate [Lopressor 25 mg PO BID 12/12/17 (beta brandt)] Oxycodone CR [Oxycontin] 15 mg PO DAILY 12/12/17 Oxycodone [Oxyir] 5 mg PO Q4H PRN PRN 5 Days #20 12/12/17 tablet Pantoprazole Sodium [Protonix] 40 mg PO BID 12/12/17 Potassium Chloride [K-Tab ER] 10 meq PO QDAY 12/12/17 Prednisone [Deltasone] See Taper PO DAILY 12/12/17 Senna/Docusate Sodium [Senokot-S] 2 tab PO BID PRN #30 tab 12/12/17 Current Medications Generic Name Dose Route Start Last Admin Trade Name Freq PRN Reason Stop Dose Admin Acetaminophen 1,000 mg 12/12/17 21:03 Tylenol PO Q8H PRN PRN MILD PAIN (1-3/10) Bisacodyl 10 mg 12/12/17 21:04 Dulcolax RECTAL DAILY PRN Constipation Fluoxetine HCl 20 mg 12/13/17 06:00 12/13/17 05:32 Prozac PO 20 mg DAILY [facility] Administration Furosemide 20 mg 12/13/17 06:00 12/13/17 05:26 Lasix PO 20 mg QODAY@0600 [facility] Administration Gabapentin 100 mg 12/12/17 17:00 12/13/17 08:07 Neurontin PO 100 mg 4X/DAYCM [facility] Administration Heparin Sodium (Beef Lung) 500 unit 12/13/17 01:03 Heparin 500 Unit/5 Ml (100/Ml) IV UD PRN HEPARIN FLUSH Metoprolol Tartrate 25 mg 12/12/17 18:00 12/13/17 06:13 Lopressor (Beta Brandt) PO 25 mg BID [facility] Administration Nutritional Formula (Lactose Free) 120 ml 12/13/17 12:00 Glucerna Shake PO 4X/DAY [facility] Oxycodone HCl 5 mg 12/12/17 15:21 12/13/17 01:55 Oxyir PO 5 mg Q4H PRN PRN Administration BREAKTHROUGH PAIN (>4/10) Oxycodone HCl 15 mg 12/13/17 06:00 12/13/17 05:24 Oxycontin PO 15 mg DAILY [facility] Administration Pantoprazole Sodium 40 mg 12/12/17 18:00 12/13/17 05:26 Protonix PO 40 mg BID [facility] Administration Polyethylene Glycol 17 gm 12/13/17 06:00 12/13/17 05:32 Miralax PO Not Given DAILY [facility] Polysaccharide Iron Complex 150 mg 12/14/17 08:00 [facility] Potassium Chloride 10 meq 12/13/17 08:00 12/13/17 08:07 K-Dur PO 10 meq DAILYCM [facility] Administration Prednisone 40 mg 12/13/17 08:00 12/13/17 08:07 PO 12/24/17 07:59 40 mg DAILY@0800 [facility] Administration Taper Senna/Docusate Sodium 2 tablet 12/13/17 06:00 12/13/17 05:33 Senokot-S, Gabriella-Colace PO 1 tablet BID [facility] Administration Sodium Chloride 10 - 20 ml 12/13/17 01:03 IV UD PRN PICC FLUSH Tuberculin PPD 5 tu 12/20/17 10:00 Tubersol, Aplisol, Ppd ID 12/20/17 10:01 X1 ONE Problem List (Last Updated 10/11/17 @ 09:06 by Gosia Martinez) Weakness (Acute) Anemia (Acute) Edema (Chronic) Pulmonary hypertension (Chronic) Atrial fibrillation (Chronic) Chronic diastolic heart failure (Chronic) Diabetes mellitus (Chronic) Chronic kidney disease (Chronic) Lumbar spinal stenosis (Chronic) PAOD (peripheral arterial occlusive disease) (Chronic) Venous stasis ulcer (Chronic) Depression (Chronic) Neuropathic pain (Chronic) Hypokalemia (Acute) Vital Signs Temp Pulse Resp BP Pulse Ox 98.7 F 98 18 129/63 H 92 12/12/17 15:30 12/13/17 06:13 12/12/17 15:30 12/13/17 06:13 12/12/17 15:30 Oxygen Delivery Method Room Air Weight: 81.675 kg Body Mass Index (BMI) 31.8 Finger Stick Blood Glucose 124 Sodium 141 mmol/L (136-145) 12/13/17 06:10 Potassium 3.5 mmol/L (3.5-5.1) 12/13/17 06:10 Chloride 105 mmol/L (98-107) 12/13/17 06:10 Carbon Dioxide 29.0 mmol/L (21.0-32.0) 12/13/17 06:10 Anion Gap 7 (5-15) 12/13/17 06:10 BUN 23 mg/dL (7-18) H 12/13/17 06:10 Creatinine 1.10 mg/dL (0.55-1.02) H 12/13/17 06:10 Est GFR (MDRD) Af Amer 63 mL/min (>60) 12/13/17 06:10 Est GFR (MDRD) Non-Af 52 mL/min (>60) L 12/13/17 06:10 BUN/Creatinine Ratio 20.9 RATIO (10-20) H 12/13/17 06:10 Glucose 103 mg/dL (74-106) 12/13/17 06:10 Assessment/Plan: 1) Pain APAP for mild pain, oxycodone for breakthrough pain, oxyContin daily, gabapentin 4x daily. Continue to monitor daily pain scores, prn medication use. 2) AFib Metoprolol twice daily. BP/HR within goal ranges. Continue to monitor BP/HR. 3) GI Pantoprazole daily. Continue to monitor s/s GI distress. 4) Pyoderma Gangrenosum Prednisone taper. Continue to monitor clinically. 5) Nutrition Fe, Glucerna. Continue to monitor clinically. 6) Edema Furosemide/KCl. K wnl, BUN/SCr at baseline. Continue to monitor electrolytes , for swelling. Psychotropic Medications: 7) Depression Fluoxetine daily. Continue to monitor s/s depression. Unnecessary Medications: None Bowel Regimen: 8) Senna/s, PEG, prn bisacodyl. Continue to monitor prn medication use, for constipation/diarrhea. Date of Note:: 12/13/17 - Provider Comments Provider responsibility: Provider responsible to enter orders to implement recommendations <Ari Rainey Chi - Last Filed: 12/13/17 17:45> Progress Note - Pharmacy Subjective: [] Objective: Allergies amlodipine besylate [From Norvasc] Allergy (Verified 12/07/17 06:11) Unknown Shortness of breath ceftriaxone Allergy (Verified 12/07/17 06:11) Rash doxazosin mesylate [From Cardura] Allergy (Verified 12/07/17 06:11) Unknown Pt doesn't remember doxycycline Allergy (Verified 12/07/17 06:11) Unknown Pt doesn't remember enalapril maleate [From Vasotec] Allergy (Verified 12/07/17 06:11) Rash enalaprilat dihydrate [From Vasotec] Allergy (Verified 12/07/17 06:11) Rash hydroxyzine HCl [From Vistaril] Allergy (Verified 12/07/17 06:11) Rash hydroxyzine pamoate [From Vistaril] Allergy (Verified 12/07/17 06:11) Rash meperidine HCl [From Demerol] Allergy (Verified 12/07/17 06:11) Rash Sulfa (Sulfonamide Antibiotics) Allergy (Verified 12/07/17 06:11) Hives sulfamethoxazole [From Bactrim] Allergy (Verified 12/04/17 05:42) Hives trimethoprim [From Bactrim] Allergy (Verified 12/04/17 05:42) Hives Home Medications Medication Instructions Recorded Gabapentin [Neurontin] 100 mg PO 4X/DAY 09/29/17 Fluoxetine [Prozac] 20 mg PO DAILY 09/30/17 furosemide 40 mg tablet 20 mg PO QODAY tab 10/11/17 Ensure Clear 120 ml PO 4X/DAY 12/12/17 Metoprolol Tartrate [Lopressor 25 mg PO BID 12/12/17 (beta brandt)] Oxycodone CR [Oxycontin] 15 mg PO DAILY 12/12/17 Oxycodone [Oxyir] 5 mg PO Q4H PRN PRN 5 Days #20 12/12/17 tablet Pantoprazole Sodium [Protonix] 40 mg PO BID 12/12/17 Potassium Chloride [K-Tab ER] 10 meq PO QDAY 12/12/17 Prednisone [Deltasone] See Taper PO DAILY 12/12/17 Senna/Docusate Sodium [Senokot-S] 2 tab PO BID PRN #30 tab 12/12/17 Current Medications Generic Name Dose Route Start Last Admin Trade Name Freq PRN Reason Stop Dose Admin Acetaminophen 1,000 mg 12/12/17 21:03 Tylenol PO Q8H PRN PRN MILD PAIN (1-3/10) Bisacodyl 10 mg 12/12/17 21:04 Dulcolax RECTAL DAILY PRN Constipation Fluoxetine HCl 20 mg 12/13/17 06:00 12/13/17 05:32 Prozac PO 20 mg DAILY [facility] Administration Furosemide 20 mg 12/13/17 06:00 12/13/17 05:26 Lasix PO 20 mg QODAY@0600 [facility] Administration Gabapentin 100 mg 12/12/17 17:00 12/13/17 17:18 Neurontin PO 100 mg 4X/DAYCM [facility] Administration Heparin Sodium (Beef Lung) 500 unit 12/13/17 01:03 Heparin 500 Unit/5 Ml (100/Ml) IV UD PRN HEPARIN FLUSH Metoprolol Tartrate 25 mg 12/12/17 18:00 12/13/17 17:17 Lopressor (Beta Brandt) PO 25 mg BID [facility] Administration Nutritional Formula (Lactose Free) 120 ml 12/13/17 12:00 12/13/17 17:18 Glucerna Shake PO Not Given 4X/DAY [facility] Oxycodone HCl 5 mg 12/12/17 15:21 12/13/17 11:04 Oxyir PO 5 mg Q4H PRN PRN Administration BREAKTHROUGH PAIN (>4/10) Oxycodone HCl 15 mg 12/13/17 06:00 12/13/17 05:24 Oxycontin PO 15 mg DAILY [facility] Administration Pantoprazole Sodium 40 mg 12/12/17 18:00 12/13/17 17:18 Protonix PO 40 mg BID [facility] Administration Polyethylene Glycol 17 gm 12/13/17 06:00 12/13/17 05:32 Miralax PO Not Given DAILY [facility] Polysaccharide Iron Complex 150 mg 12/14/17 08:00 [facility] Potassium Chloride 10 meq 12/13/17 08:00 12/13/17 08:07 K-Dur PO 10 meq DAILYCM [facility] Administration Prednisone 40 mg 12/13/17 08:00 12/13/17 08:07 PO 12/24/17 07:59 40 mg DAILY@0800 [facility] Administration Taper Senna/Docusate Sodium 2 tablet 12/13/17 06:00 12/13/17 17:18 Senokot-S, Gabriella-Colace PO Not Given BID [facility] Sodium Chloride 10 - 20 ml 12/13/17 01:03 IV UD PRN PICC FLUSH Tuberculin PPD 5 tu 12/20/17 10:00 Tubersol, Aplisol, Ppd ID 12/20/17 10:01 X1 ONE Problem List (Last Updated 10/11/17 @ 09:06 by Gosia Martinez) Weakness (Acute) Anemia (Acute) Edema (Chronic) Pulmonary hypertension (Chronic) Atrial fibrillation (Chronic) Chronic diastolic heart failure (Chronic) Diabetes mellitus (Chronic) Chronic kidney disease (Chronic) Lumbar spinal stenosis (Chronic) PAOD (peripheral arterial occlusive disease) (Chronic) Venous stasis ulcer (Chronic) Depression (Chronic) Neuropathic pain (Chronic) Hypokalemia (Acute) Vital Signs Temp Pulse Resp BP Pulse Ox 98.1 F 105 H 20 H 107/57 L 105 12/13/17 15:37 12/13/17 17:17 12/13/17 15:37 12/13/17 15:37 12/13/17 15:37 Oxygen Delivery Method Room Air Weight: 81.675 kg Body Mass Index (BMI) 31.8 Finger Stick Blood Glucose 124 Sodium 141 mmol/L (136-145) 12/13/17 06:10 Potassium 3.5 mmol/L (3.5-5.1) 12/13/17 06:10 Chloride 105 mmol/L (98-107) 12/13/17 06:10 Carbon Dioxide 29.0 mmol/L (21.0-32.0) 12/13/17 06:10 Anion Gap 7 (5-15) 12/13/17 06:10 BUN 23 mg/dL (7-18) H 12/13/17 06:10 Creatinine 1.10 mg/dL (0.55-1.02) H 12/13/17 06:10 Est GFR (MDRD) Af Amer 63 mL/min (>60) 12/13/17 06:10 Est GFR (MDRD) Non-Af 52 mL/min (>60) L 12/13/17 06:10 BUN/Creatinine Ratio 20.9 RATIO (10-20) H 12/13/17 06:10 Glucose 103 mg/dL (74-106) 12/13/17 06:10 Assessment/Plan: Psychotropic Medications: Unnecessary Medications: Bowel Regimen: - Provider Comments Provider responsibility: Provider responsible to enter orders to implement recommendations Provider Comments to Recommendations by Pharmacy: Agree
[2017-12-13 11:56] LABS: Bedside Glucose 132 mg/dL (70-110)
[2017-12-13 15:37] VITALS: BP 107/57; PULSE 105; RESP 20; TEMP 36.7; O2SAT 105
--- NOTE | 2017-12-13 16:21 | CHAPLAIN ---
patient is sleeping; spoke with spouse who was sitting in hallway to offer him support
[2017-12-13 17:11] LABS: Bedside Glucose 172 mg/dL (70-110)
[2017-12-13 17:17] VITALS: PULSE 105
[2017-12-13 20:26] LABS: Bedside Glucose 240 mg/dL (70-110)
[2017-12-13] MEDS: Menthol/Lanolin/Calamine/Znox 113 GM Tube 1 APPLIC TOPICAL (20:57)
[2017-12-14] MEDS: oxyCODONE 5 MG Tablet PO ×2 (00:59→08:54)
[2017-12-14] MEDS: Acetaminophen 500 MG Tablet 1000 MG PO (02:46)
[2017-12-14] MEDS: Menthol/Lanolin/Calamine/Znox 113 GM Tube 1 APPLIC TOPICAL ×2 (05:00→20:10)
[2017-12-14 05:01] VITALS: BP 106/58; PULSE 85
[2017-12-14] MEDS: Metoprolol Tartrate 25 MG Tablet PO ×2 (05:01→17:07)
[2017-12-14] MEDS: Pantoprazole Sodium 40 MG Tablet PO ×2 (05:02→17:07)
[2017-12-14] MEDS: oxyCODONE CR 15 MG Tablet PO (05:02)
[2017-12-14] MEDS: FLUoxetine 20 MG Capsule PO (05:05)
--- NOTE | 2017-12-14 05:09 | NURSING ---
Am prozac scanned twice 12-13-17, given as unscheduled dose this morning 12-14-17 after verifying with Caity Alexis RN.
[2017-12-14 06:51] LABS: Bedside Glucose 95 mg/dL (70-110)
[2017-12-14] MEDS: Gabapentin 100 MG Capsule PO ×4 (07:49→20:07)
[2017-12-14] MEDS: predniSONE 20 MG Tablet 10 MG PO (07:49)
[2017-12-14] MEDS: Iron Polysaccharide Complex 150 MG CAPSULE PO (07:50)
[2017-12-14 10:00] VITALS: PULSE 107; RESP 18; O2SAT 93
--- NOTE | 2017-12-14 10:09 | NURSING ---
DRESSINGS DONE BY ANNETTA ROSARIO WOUND NURSE ON 12/14/17. FIRST SHIFT
--- NOTE | 2017-12-14 10:21 | NURSING ---
wound photo: left posterior lower leg
--- NOTE | 2017-12-14 10:21 | NURSING ---
wound photo: right lateral lower leg
--- NOTE | 2017-12-14 10:22 | NURSING ---
wound photo: right medial lower leg
--- NOTE | 2017-12-14 10:26 | CASEMGMT ---
Insurance Continued stay approved with next update due on 12/19/17. Auth#[id number] Margo WALTERS, PEDICURIST
[2017-12-14 11:26] LABS: Bedside Glucose 168 mg/dL (70-110)
[2017-12-14 15:12] VITALS: BP 133/73; PULSE 108; RESP 16; TEMP 36.1; O2SAT 92
--- NOTE | 2017-12-14 15:16 | CHAPLAIN ---
Type of Pastoral Visit ___ Initial Visit _x__ Follow-up Visit ___ On-call Visit ___ General Patient Visit ___ Spiritual Assessment ___ Family Conference ___ Bereavement ___ Rapid Response ___ Code Blue ___ Other (describe below) Pastoral Care Referral From _x__ Patient ___ Family ___ Nurse ___ Physician ___ Furnace Setter ___ Magazine Grinder Loader ___ Other (describe below) Sacrament/Intervention _x__ Active listening ___ Anointing ___ Mosque ___ Bereavement ___ Communion ___ Amy exploration ___ ___ Life review _x__ Prayer ___ Reconciliation ___ Sacrament of Sick _x__ Supportive presence ___ Wedding ___ Other (describe below) Pastoral Comments patient is in much better spirits and appears to have made great improvement since seen in ICU and then PCU; pt is pleased with her progress but also has concerns about getting someone into home to help her with wound care when the home health cannot come;
[2017-12-14 17:00] LABS: Bedside Glucose 168 mg/dL (70-110)
[2017-12-14 17:07] VITALS: BP 133/73; PULSE 108
[2017-12-14 20:55] LABS: Bedside Glucose 162 mg/dL (70-110)
[2017-12-15] MEDS: Menthol/Lanolin/Calamine/Znox 113 GM Tube 1 APPLIC TOPICAL ×2 (02:20→21:26)
[2017-12-15] MEDS: oxyCODONE 5 MG Tablet PO (03:33)
[2017-12-15] MEDS: oxyCODONE CR 15 MG Tablet PO (05:53)
[2017-12-15] MEDS: FLUoxetine 20 MG Capsule PO (05:53)
[2017-12-15] MEDS: Pantoprazole Sodium 40 MG Tablet PO ×2 (05:53→17:09)
[2017-12-15 05:55] VITALS: BP 100/44; PULSE 104
[2017-12-15] MEDS: Metoprolol Tartrate 25 MG Tablet PO ×2 (05:55→17:09)
[2017-12-15] MEDS: Furosemide 20 MG Tablet PO (05:57)
[2017-12-15 06:31] LABS: Bedside Glucose 90 mg/dL (70-110)
[2017-12-15] MEDS: predniSONE 20 MG Tablet 10 MG PO (08:00)
[2017-12-15] MEDS: Gabapentin 100 MG Capsule PO ×4 (08:01→21:26)
[2017-12-15] MEDS: Iron Polysaccharide Complex 150 MG CAPSULE PO (08:01)
[2017-12-15 12:01] LABS: Bedside Glucose 141 mg/dL (70-110)
--- NOTE | 2017-12-15 13:27 | CASEMGMT ---
Brief interview for mental status (BIMS) and resident mood interview (PHQ-9) completed on this day. BIMS score 13/15. PHQ-9 score 03/21
[2017-12-15 15:14] VITALS: BP 107/58; PULSE 96; RESP 20; TEMP 36.4; O2SAT 97
[2017-12-15 16:51] LABS: Bedside Glucose 198 mg/dL (70-110)
[2017-12-15 17:09] VITALS: PULSE 96
[2017-12-15 21:30] VITALS: BP 131/71; PULSE 92; RESP 20; TEMP 36.6; O2SAT 94
[2017-12-15 21:36] LABS: Bedside Glucose 174 mg/dL (70-110)
[2017-12-16] MEDS: Menthol/Lanolin/Calamine/Znox 113 GM Tube 1 APPLIC TOPICAL ×2 (05:59→20:55)
[2017-12-16] MEDS: oxyCODONE CR 15 MG Tablet PO (06:01)
[2017-12-16 06:02] VITALS: BP 136/80; PULSE 94
[2017-12-16] MEDS: Pantoprazole Sodium 40 MG Tablet PO ×2 (06:02→18:14)
[2017-12-16] MEDS: Metoprolol Tartrate 25 MG Tablet PO ×2 (06:02→18:13)
[2017-12-16] MEDS: FLUoxetine 20 MG Capsule PO (06:03)
[2017-12-16 06:50] LABS: Bedside Glucose 82 mg/dL (70-110)
[2017-12-16] MEDS: Iron Polysaccharide Complex 150 MG CAPSULE PO (08:26)
[2017-12-16] MEDS: Gabapentin 100 MG Capsule PO ×4 (08:26→20:56)
[2017-12-16] MEDS: predniSONE 20 MG Tablet 10 MG PO (08:26)
[2017-12-16] MEDS: oxyCODONE 5 MG Tablet PO ×2 (09:33→20:56)
[2017-12-16 11:20] LABS: Bedside Glucose 117 mg/dL (70-110)
[2017-12-16 15:35] VITALS: BP 85/54; PULSE 101; RESP 16; TEMP 36.9; O2SAT 95
[2017-12-16 16:51] LABS: Bedside Glucose 197 mg/dL (70-110)
[2017-12-16 18:13] VITALS: BP 104/67; PULSE 97
[2017-12-16] MEDS: 0.9% NaCl PICC Flush IV (20:04)
[2017-12-16 21:11] LABS: Bedside Glucose 199 mg/dL (70-110)
[2017-12-17] MEDS: oxyCODONE 5 MG Tablet PO ×3 (00:56→20:48)
[2017-12-17] MEDS: Menthol/Lanolin/Calamine/Znox 113 GM Tube 1 APPLIC TOPICAL ×2 (04:59→20:47)
[2017-12-17] MEDS: Furosemide 20 MG Tablet PO (05:00)
[2017-12-17] MEDS: Pantoprazole Sodium 40 MG Tablet PO ×2 (05:00→16:55)
[2017-12-17] MEDS: oxyCODONE CR 15 MG Tablet PO (05:00)
[2017-12-17 05:01] VITALS: PULSE 78
[2017-12-17] MEDS: FLUoxetine 20 MG Capsule PO (05:01)
[2017-12-17] MEDS: Metoprolol Tartrate 25 MG Tablet PO ×2 (05:01→16:55)
[2017-12-17 07:11] LABS: Bedside Glucose 85 mg/dL (70-110)
[2017-12-17] MEDS: predniSONE 20 MG Tablet 10 MG PO (08:15)
[2017-12-17] MEDS: Iron Polysaccharide Complex 150 MG CAPSULE PO (08:16)
[2017-12-17] MEDS: Gabapentin 100 MG Capsule PO ×4 (08:16→20:50)
[2017-12-17 09:54] VITALS: O2SAT 98
[2017-12-17 11:21] LABS: Bedside Glucose 101 mg/dL (70-110)
[2017-12-17 15:30] VITALS: BP 103/57; PULSE 99; RESP 18; TEMP 36.6; O2SAT 95
[2017-12-17 16:55] VITALS: BP 103/57; PULSE 99
[2017-12-17 17:20] LABS: Bedside Glucose 155 mg/dL (70-110)
[2017-12-17 20:38] VITALS: PULSE 84; RESP 18; O2SAT 97
[2017-12-17] MEDS: 0.9% NaCl PICC Flush IV (20:54)
[2017-12-17 21:01] LABS: Bedside Glucose 150 mg/dL (70-110)
[2017-12-18] MEDS: oxyCODONE 5 MG Tablet PO ×2 (00:54→10:24)
[2017-12-18] MEDS: Acetaminophen 500 MG Tablet 1000 MG PO (01:35)
[2017-12-18] MEDS: Menthol/Lanolin/Calamine/Znox 113 GM Tube 1 APPLIC TOPICAL ×2 (04:46→20:06)
[2017-12-18 04:48] VITALS: PULSE 102
[2017-12-18] MEDS: Metoprolol Tartrate 25 MG Tablet PO ×2 (04:48→17:39)
[2017-12-18] MEDS: FLUoxetine 20 MG Capsule PO (04:49)
[2017-12-18] MEDS: Pantoprazole Sodium 40 MG Tablet PO ×2 (04:49→17:39)
[2017-12-18] MEDS: oxyCODONE CR 15 MG Tablet PO (04:49)
--- NOTE | 2017-12-18 05:06 | NURSING ---
Pt had large liquid BM, stated she 'messed myself' prior to getting into bathroom. This nurse prepared am medications including 0600 oxycontin 15mg anticipating changing dressings to legs. Once back in bed, pt stated she felt nauseated and had been feeling this way with liquid bm for 'the last 3-4 days'. Refused jignesh sohan or saltine crackers, stating it would affect morning blood sugar reading. Explained to pt if it would help settle her stomach the blood sugar could be checked earlier and was of less concern d/t not being insulin dependent. Pt refused diet jignesh sohan stating 'I just do not like pop'. Went back and forth over taking medications, offered to give only oxycontin 15mg, all of them, or none of them explaining it could be wasted and given later. Also told pt if she threw it up it could not be given again. Pt said 'well then I'll just have to power through'. Told pt this was not ideal and whatever she felt was best for her was what she should do. She stated 'Oh just give me the pills then it's not your fault' and took all morning meds. Refused stool softener/laxatives and glucerna, and did not want anything done for nausea or loose stools stating if it's blood it needs to come out that's what they told me'. When asked who told her that she said she didn't want 'anything done until I see Dr. Alvarado which is soon. Also refused this nurse to change leg dressings, even after being medicated. She said only Kate changes my dressings. Told pt she is an ADL this morning at 0630 and we could go from there. She said she would consider it only if Kate was called, and asked when she would be in. RN aware. Currently pt is lying in bed, in the dark where she states she is as 'comfortable as I'm going to get. I just need to lie real still and get warm. Pt did thank this nurse and was not impolite but it is clear she is not feeling well. Afebrile, VS normal for pt. Encouraged to use call light and call for nurse if there was anything we could do to help, to which she voiced understanding and appreciation. Continuing to monitor.
[2017-12-18 06:25] LABS: Bedside Glucose 95 mg/dL (70-110)
[2017-12-18 06:47] VITALS: O2SAT 95
--- NOTE | 2017-12-18 06:49 | NURSING ---
Addendum entered by Luisa Singh 12/18/17 08:23: dr Rainey notified, new order for abdomen xray Original Note: Stopped in pt room and asked if she was feeling any better. Pt stated 'No, and they had to move my therapy appt to 0830 it was at 0630 but I asked her to come back. Pt did not have any vomiting or bowel movements but remains nauseated. Refused to have dressings changed, wants to 'lie still' in bed until therapy returns at 0830. Given diet jignesh sohan and per request, door closed. Continuing to monitor. RN aware.
--- NOTE | 2017-12-18 08:22 | RAD_ITS ---
STUDY: X-RAY - ABDOMEN/PELVIS REASON FOR EXAM: Female, 72 years old. Diarrhea TECHNIQUE: Two AP supine views of the abdomen and pelvis. COMPARISON: None. FINDINGS: There is patchy bibasilar airspace disease. A right pleural effusion is seen. There is no demonstrated free abdominal air. The visualized liver, spleen and kidneys are grossly normal in size and morphology. Cholecystectomy clips are seen in the right upper quadrant of the abdomen. Multiple right-sided rib fractures are seen. These appear to involve at least the right seventh through 12th ribs. RAD/Abdomen Single View IMPRESSION: Multiple right-sided rib fractures. Patchy bilateral airspace disease. Small right pleural effusion. Nonobstructive abdominal bowel gas pattern. Electronically Signed: Fidel Cortez DO at 9:37 EDT Tel , Service support ,
--- NOTE | 2017-12-18 08:58 | NURSING ---
Bilateral lower leg dressings are D&I. dressings due to be changed tomorrow. will reassess at that time.
[2017-12-18] MEDS: predniSONE 20 MG Tablet 10 MG PO (09:10)
[2017-12-18] MEDS: Gabapentin 100 MG Capsule PO ×4 (09:11→20:07)
[2017-12-18] MEDS: Iron Polysaccharide Complex 150 MG CAPSULE PO (09:11)
[2017-12-18 10:00] VITALS: PULSE 83; RESP 18; O2SAT 92
[2017-12-18 11:00] LABS: Bedside Glucose 107 mg/dL (70-110)
--- NOTE | 2017-12-18 12:21 | NURSING ---
dr Rainey notified of pt abdomen xray, new order for zpak. pt updated.
[2017-12-18] MEDS: 0.9% NaCl PICC Flush IV (12:32)
--- NOTE | 2017-12-18 13:17 | NURSING ---
wound photo: left posterior lower leg
--- NOTE | 2017-12-18 13:17 | NURSING ---
wound photo: right lateral lower leg
--- NOTE | 2017-12-18 13:18 | NURSING ---
wound photo: right medial lower leg
[2017-12-18] MEDS: Azithromycin 250 MG Tablet 500 MG PO (14:03)
[2017-12-18 15:16] VITALS: BP 129/57; PULSE 92; RESP 20; TEMP 36.8; O2SAT 97
[2017-12-18 16:56] LABS: Bedside Glucose 183 mg/dL (70-110)
[2017-12-18 17:39] VITALS: BP 129/57; PULSE 92
[2017-12-18 21:01] LABS: Bedside Glucose 187 mg/dL (70-110)
[2017-12-19] VITALS (7 sets, daily range): BP systolic 113–127; BP diastolic 63–72; PULSE 88–102; RESP 16–18; TEMP 36.8; O2SAT 92–96
[2017-12-19] MEDS: oxyCODONE CR 15 MG Tablet PO (05:33)
[2017-12-19] MEDS: Menthol/Lanolin/Calamine/Znox 113 GM Tube 1 APPLIC TOPICAL ×2 (05:34→20:56)
[2017-12-19] MEDS: Pantoprazole Sodium 40 MG Tablet PO ×2 (05:34→17:07)
[2017-12-19] MEDS: FLUoxetine 20 MG Capsule PO (05:34)
[2017-12-19] MEDS: Furosemide 20 MG Tablet PO (05:34)
[2017-12-19] MEDS: Metoprolol Tartrate 25 MG Tablet PO ×2 (05:36→17:07)
[2017-12-19] MEDS: 0.9% NaCl PICC Flush IV ×2 (05:38→14:48)
[2017-12-19 06:46] LABS: Bedside Glucose 92 mg/dL (70-110)
[2017-12-19] MEDS: Iron Polysaccharide Complex 150 MG CAPSULE PO (08:01)
[2017-12-19] MEDS: Gabapentin 100 MG Capsule PO ×4 (08:01→20:57)
[2017-12-19] MEDS: predniSONE 20 MG Tablet 10 MG PO (08:01)
--- NOTE | 2017-12-19 08:26 | NURSING ---
Dressings and ABBIE wraps intact to bilateral lower legs. patient states that pain has been well controlled. dressings are due to be changed tomorrow.
--- NOTE | 2017-12-19 09:39 | CASEMGMT ---
Social Work: Insurance: Clinical update faxed to Giselle at [employer] fax # . Awaiting continued stay determination. Auth # [id number] NANCI Iglesias
[2017-12-19] MEDS: Azithromycin 250 MG Tablet PO (10:02)
--- NOTE | 2017-12-19 10:02 | NURSING ---
pt back from [facility] dr jeff garay, no new orders.
[2017-12-19 11:21] LABS: Bedside Glucose 141 mg/dL (70-110)
[2017-12-19 16:56] LABS: Bedside Glucose 163 mg/dL (70-110)
[2017-12-19] MEDS: Glucerna Shake 120 ML LIQUID PO (17:13)
[2017-12-19] MEDS: Nystatin Powder 15gm Bottle 1 APPLIC TOPICAL (21:03)
[2017-12-19 21:21] LABS: Bedside Glucose 148 mg/dL (70-110)
--- NOTE | 2017-12-20 03:52 | NURSING ---
TOLERATING ROOM AIR WELL. SPO2 MONITORED DURING THE NIGHT STAYING AT 94%. WILL CONT TO MONITOR.
[2017-12-20] MEDS: oxyCODONE CR 15 MG Tablet PO (05:07)
[2017-12-20] MEDS: Pantoprazole Sodium 40 MG Tablet PO ×2 (05:09→17:30)
[2017-12-20] MEDS: FLUoxetine 20 MG Capsule PO (05:09)
[2017-12-20] MEDS: Nystatin Powder 15gm Bottle 1 APPLIC TOPICAL ×2 (05:09→19:49)
[2017-12-20 05:12] VITALS: BP 132/69; PULSE 84
[2017-12-20] MEDS: Menthol/Lanolin/Calamine/Znox 113 GM Tube 1 APPLIC TOPICAL ×2 (05:12→19:48)
[2017-12-20] MEDS: Metoprolol Tartrate 25 MG Tablet PO ×2 (05:12→17:30)
[2017-12-20 06:26] LABS: Anion Gap 6 (5-15); BUN 18 mg/dL (7-18); BUN/Creat Ratio 17.1 RATIO (10-20); Calcium,Total 7.9 mg/dL (8.5-10.1); Chloride 104 mmol/L (98-107); Creatinine, Serum 1.05 mg/dL (0.55-1.02); EST Glomerular Filtration Rate 55 mL/min (>60); Est Glom Filt Rate - Afr Amer 66 mL/min (>60); Estimated Creatinine Clearance 40.65 ml/min; Glucose 72 mg/dL (74-106); Potassium 3.6 mmol/L (3.5-5.1); Sodium Level 138 mmol/L (136-145)
[2017-12-20 06:30] LABS: Absolute Lymphocyte Count 1.58 X10^3/ul (0.83-4.51); Absolute Neutrophil Count 8.9 X10^3/uL (2.0-7.7); Basophil# 0.01 X10^3/uL; Basophil% 0.1 % (0-1); Eosinophil# 0.04 X10^3/uL; Eosinophils% 0.3 % (0-5); Hematocrit 30.9 % (37-47); Hemoglobin 9.4 g/dl (12.0-15.0); Lymphocyte # 1.58 X10^3/ul (4.0); Lymphocyte % 13.5 % (19-41); Mean Corp Hgb Conc 30.4 g/gl (32-36); Mean Corpuscular Hgb 23.3 pg (27.0-32.0); Mean Corpuscular Volume 76.7 fL (81-99); Mean Platelet Vol. 9.3 fl (6.2-12.0); Monocyte# 1.09 X10^3/uL; Monocyte% 9.3 % (0-10); Neutrophil % 76.4 % (47-70); Platelet Count 346 K/mm3 (150-450); RBC Distribution Width CV 26.1 % (11.6-14.6); RBC Distribution Width SD 70.9 fl (35.1-43.9); Red Blood Count 4.03 M/mm3 (4.2-5.4); White Blood Count 11.7 K/mm3 (4.4-11.0)
[2017-12-20 06:31] LABS: Differential Indicated SCAN CRITERIA MET; POSITIVE COUNT NO; POSITIVE DIFFERENTIAL NO; POSITIVE MORPHOLOGY YES
[2017-12-20 06:45] LABS: Anisocytosis 1+; Differential Comment SCAN; Hypochromasia 1+; Polychromasia 1+
[2017-12-20 06:49] VITALS: O2SAT 93
[2017-12-20 06:51] LABS: Bedside Glucose 80 mg/dL (70-110)
[2017-12-20] MEDS: Iron Polysaccharide Complex 150 MG CAPSULE PO (08:49)
[2017-12-20] MEDS: predniSONE 20 MG Tablet 10 MG PO (08:49)
[2017-12-20] MEDS: Gabapentin 100 MG Capsule PO ×4 (08:49→20:57)
[2017-12-20] MEDS: Azithromycin 250 MG Tablet PO (08:49)
[2017-12-20 11:50] LABS: Bedside Glucose 128 mg/dL (70-110)
[2017-12-20] MEDS: Tuberculin,Purif.prot.deriv. 50 TU/ML Vial 5 ML ID (13:13)
--- NOTE | 2017-12-20 13:54 | CASEMGMT ---
Plan of care meeting held. Resident present as well as resident family. No discharge date set at this time. Resident planning to continue with further care and treatment on the Transitional Care Unit. Support given. Resident plans to discharge home with spouse at time of discharge. Will continue to follow. Margo WALTERS, COLOR CHECKER
[2017-12-20] MEDS: 0.9% NaCl PICC Flush IV (14:46)
[2017-12-20 15:13] VITALS: BP 112/62; PULSE 106; RESP 20; TEMP 36.8
--- NOTE | 2017-12-20 16:44 | CASEMGMT ---
Insurance Continued stay approved with next update due on 01/02/18. Auth#[id number] Margo WALTERS, VEHICLE FARE COLLECTOR
[2017-12-20 17:06] LABS: Bedside Glucose 144 mg/dL (70-110)
[2017-12-20 17:30] VITALS: PULSE 106
[2017-12-20] MEDS: Glucerna Shake 120 ML LIQUID PO ×2 (17:31→19:50)
[2017-12-20] MEDS: oxyCODONE 5 MG Tablet PO (19:49)
[2017-12-20 20:00] VITALS: PULSE 88; RESP 18; O2SAT 98
[2017-12-20 20:55] LABS: Bedside Glucose 182 mg/dL (70-110)
[2017-12-21] MEDS: oxyCODONE 5 MG Tablet PO ×2 (03:13→21:17)
[2017-12-21] MEDS: Menthol/Lanolin/Calamine/Znox 113 GM Tube 1 APPLIC TOPICAL ×2 (05:35→21:17)
[2017-12-21] MEDS: oxyCODONE CR 15 MG Tablet PO (05:36)
[2017-12-21] MEDS: Pantoprazole Sodium 40 MG Tablet PO ×2 (05:37→17:05)
[2017-12-21] MEDS: 0.9% NaCl PICC Flush IV (05:37)
[2017-12-21] MEDS: Furosemide 20 MG Tablet PO (05:37)
[2017-12-21] MEDS: Nystatin Powder 15gm Bottle 1 APPLIC TOPICAL ×2 (05:37→21:17)
[2017-12-21 05:38] VITALS: PULSE 94
[2017-12-21] MEDS: FLUoxetine 20 MG Capsule PO (05:38)
[2017-12-21] MEDS: Metoprolol Tartrate 25 MG Tablet PO ×2 (05:38→17:05)
--- NOTE | 2017-12-21 06:34 | NURSING ---
Addendum entered by Chloe Aguilar 12/21/17 06:47: FBS 99, not 47. Pt aware of this and said she feels better since drinking orange juice. RN aware. Continuing to monitor. Original Note: FBS 47 per OIL RIG ROUGHNECK Linda. This nurse gave pt orange juice and crackers per her request, she still refused glucerna d/t having the orange juice. Pt is very strict with intake d/t blood sugar checks. Stated she only checks it in the mornings when at home. Will not eat or drink anything besides water prior to having sugar checked, after going to bed. Asked if she was symptomatic or able to tell when she is very high or very low and pt said yes, and that she felt 'tired and sluggish' Awake and alert, oriented at this time. RN aware. Continuing to monitor, check per facility protocol.
[2017-12-21 07:00] LABS: Bedside Glucose 99 mg/dL (70-110)
[2017-12-21] MEDS: Azithromycin 250 MG Tablet PO (08:38)
[2017-12-21] MEDS: predniSONE 20 MG Tablet 10 MG PO (08:38)
[2017-12-21] MEDS: Gabapentin 100 MG Capsule PO ×4 (08:39→21:17)
[2017-12-21] MEDS: Iron Polysaccharide Complex 150 MG CAPSULE PO (08:39)
[2017-12-21 15:26] VITALS: BP 97/54; PULSE 68; RESP 18; TEMP 36.7; O2SAT 94
[2017-12-21 17:05] VITALS: PULSE 68
[2017-12-21] MEDS: Glucerna Shake 120 ML LIQUID PO (17:05)
[2017-12-21 20:47] VITALS: PULSE 88; RESP 18; O2SAT 95
[2017-12-22] MEDS: Acetaminophen 500 MG Tablet 1000 MG PO (01:16)
[2017-12-22] MEDS: oxyCODONE 5 MG Tablet PO ×3 (01:17→20:49)
[2017-12-22] MEDS: Menthol/Lanolin/Calamine/Znox 113 GM Tube 1 APPLIC TOPICAL ×2 (06:07→20:51)
[2017-12-22 06:08] VITALS: BP 96/71; PULSE 89
[2017-12-22] MEDS: Metoprolol Tartrate 25 MG Tablet PO ×2 (06:08→17:18)
[2017-12-22] MEDS: Pantoprazole Sodium 40 MG Tablet PO ×2 (06:08→17:18)
[2017-12-22] MEDS: Nystatin Powder 15gm Bottle 1 APPLIC TOPICAL ×2 (06:08→20:52)
[2017-12-22] MEDS: FLUoxetine 20 MG Capsule PO (06:09)
[2017-12-22] MEDS: oxyCODONE CR 15 MG Tablet PO (06:12)
[2017-12-22] MEDS: Glucerna Shake 120 ML LIQUID PO ×4 (06:12→20:50)
[2017-12-22 06:51] LABS: Bedside Glucose 105 mg/dL (70-110)
[2017-12-22] MEDS: Iron Polysaccharide Complex 150 MG CAPSULE PO (08:50)
[2017-12-22] MEDS: Gabapentin 100 MG Capsule PO ×4 (08:50→20:50)
[2017-12-22] MEDS: predniSONE 20 MG Tablet 10 MG PO (08:50)
[2017-12-22] MEDS: Azithromycin 250 MG Tablet PO (09:01)
--- NOTE | 2017-12-22 09:05 | NURSING ---
MEPILEX CHANGED BY THIS NURSE.
[2017-12-22 10:00] VITALS: PULSE 52; RESP 18; O2SAT 95
--- NOTE | 2017-12-22 10:15 | CASEMGMT ---
Brief interview for mental status (BIMS) and resident mood interview (PHQ-9) completed on this day. BIMS score 14/15. PHQ-9 score 01/19
--- NOTE | 2017-12-22 14:24 | NURSING ---
DRESSINGS TO LEGS DONE BY THIS NURSE. PT TOLERATED WELL.
[2017-12-22 16:00] VITALS: BP 120/66; PULSE 71; RESP 18; TEMP 36.7; O2SAT 94
[2017-12-22 17:18] VITALS: BP 120/66; PULSE 71
[2017-12-23 05:29] VITALS: BP 122/58; PULSE 98; RESP 18; TEMP 36.6; O2SAT 94
[2017-12-23 05:30] VITALS: BP 122/58; PULSE 98
[2017-12-23] MEDS: Metoprolol Tartrate 25 MG Tablet PO ×2 (05:30→17:09)
[2017-12-23] MEDS: Glucerna Shake 120 ML LIQUID PO ×3 (05:30→21:05)
[2017-12-23] MEDS: Furosemide 20 MG Tablet PO (05:30)
[2017-12-23] MEDS: Pantoprazole Sodium 40 MG Tablet PO ×2 (05:30→17:08)
[2017-12-23] MEDS: FLUoxetine 20 MG Capsule PO (05:30)
[2017-12-23] MEDS: Menthol/Lanolin/Calamine/Znox 113 GM Tube 1 APPLIC TOPICAL ×2 (05:31→21:06)
[2017-12-23] MEDS: Nystatin Powder 15gm Bottle 1 APPLIC TOPICAL ×2 (05:31→21:06)
[2017-12-23] MEDS: oxyCODONE CR 15 MG Tablet PO (06:23)
[2017-12-23 06:36] LABS: Bedside Glucose 102 mg/dL (70-110)
[2017-12-23 07:01] VITALS: O2SAT 94
[2017-12-23] MEDS: predniSONE 20 MG Tablet 10 MG PO (08:56)
[2017-12-23] MEDS: Azithromycin 250 MG Tablet PO (08:57)
[2017-12-23] MEDS: Gabapentin 100 MG Capsule PO ×4 (08:57→21:07)
[2017-12-23] MEDS: Iron Polysaccharide Complex 150 MG CAPSULE PO (08:58)
[2017-12-23 10:00] VITALS: PULSE 108; RESP 18; O2SAT 94
[2017-12-23 14:56] VITALS: BP 92/56; PULSE 108; RESP 18; TEMP 36.8; O2SAT 96
--- NOTE | 2017-12-23 15:03 | NURSING ---
Pt dressing to bilateral lower legs dry and intact, dressings to be changed tomorrow per doctor order.
[2017-12-23 17:09] VITALS: PULSE 108
[2017-12-23] MEDS: oxyCODONE 5 MG Tablet PO (21:05)
[2017-12-24] MEDS: oxyCODONE CR 15 MG Tablet PO (05:33)
[2017-12-24] MEDS: Pantoprazole Sodium 40 MG Tablet PO ×2 (05:34→16:33)
[2017-12-24] MEDS: Nystatin Powder 15gm Bottle 1 APPLIC TOPICAL ×2 (05:34→20:07)
[2017-12-24 05:35] VITALS: BP 117/69; PULSE 90
[2017-12-24] MEDS: Metoprolol Tartrate 25 MG Tablet PO ×2 (05:35→16:33)
[2017-12-24] MEDS: FLUoxetine 20 MG Capsule PO (05:35)
[2017-12-24] MEDS: Menthol/Lanolin/Calamine/Znox 113 GM Tube 1 APPLIC TOPICAL ×2 (05:35→20:07)
[2017-12-24 07:06] LABS: Bedside Glucose 100 mg/dL (70-110)
[2017-12-24] MEDS: predniSONE 10 MG Tablet PO (07:36)
[2017-12-24] MEDS: Iron Polysaccharide Complex 150 MG CAPSULE PO (07:36)
[2017-12-24] MEDS: Gabapentin 100 MG Capsule PO ×4 (07:36→20:08)
--- NOTE | 2017-12-24 09:44 | NURSING ---
BLE drsg changed with hydrogel, adaptic and kerlix. ABBIE wraps applied. Pt tolerated well.
[2017-12-24 09:50] VITALS: PULSE 90; RESP 16
[2017-12-24 15:35] VITALS: BP 107/49; PULSE 75; RESP 18; TEMP 36.4; O2SAT 91
[2017-12-24 16:33] VITALS: PULSE 74
[2017-12-24] MEDS: oxyCODONE 5 MG Tablet PO (20:19)
[2017-12-25] MEDS: oxyCODONE 5 MG Tablet PO ×2 (01:41→21:40)
[2017-12-25] MEDS: oxyCODONE CR 15 MG Tablet PO (05:53)
[2017-12-25] MEDS: Nystatin Powder 15gm Bottle 1 APPLIC TOPICAL ×2 (05:54→21:42)
[2017-12-25] MEDS: Menthol/Lanolin/Calamine/Znox 113 GM Tube 1 APPLIC TOPICAL ×2 (05:54→21:42)
[2017-12-25] MEDS: Glucerna Shake 120 ML LIQUID PO ×2 (05:56→16:58)
[2017-12-25 05:57] VITALS: BP 114/68; PULSE 90
[2017-12-25] MEDS: Furosemide 20 MG Tablet PO (05:57)
[2017-12-25] MEDS: Metoprolol Tartrate 25 MG Tablet PO ×2 (05:57→16:57)
[2017-12-25] MEDS: FLUoxetine 20 MG Capsule PO (05:57)
[2017-12-25] MEDS: Pantoprazole Sodium 40 MG Tablet PO ×2 (05:57→16:57)
[2017-12-25 06:15] VITALS: PULSE 90; RESP 18; O2SAT 95
[2017-12-25 06:40] LABS: Bedside Glucose 97 mg/dL (70-110)
[2017-12-25] MEDS: predniSONE 10 MG Tablet PO (08:39)
[2017-12-25] MEDS: Gabapentin 100 MG Capsule PO ×4 (08:39→21:41)
[2017-12-25] MEDS: Iron Polysaccharide Complex 150 MG CAPSULE PO (08:39)
--- NOTE | 2017-12-25 09:50 | NURSING ---
Dressings intact to bilateral lower legs. dressings due to be changed again tomorrow.
--- NOTE | 2017-12-25 14:47 | MDS.RN ---
Information for the mds was obtained from review of the clinical record, interview of resident, staff, and direct observation of resident's care.
[2017-12-25 15:13] VITALS: BP 93/62; PULSE 98; RESP 18; TEMP 36.6; O2SAT 92
[2017-12-25 16:57] VITALS: PULSE 98
[2017-12-26] MEDS: oxyCODONE 5 MG Tablet PO ×2 (01:44→22:10)
[2017-12-26 05:34] VITALS: PULSE 96
[2017-12-26] MEDS: Menthol/Lanolin/Calamine/Znox 113 GM Tube 1 APPLIC TOPICAL ×2 (05:34→22:09)
[2017-12-26] MEDS: Metoprolol Tartrate 25 MG Tablet PO ×2 (05:34→17:23)
[2017-12-26] MEDS: Nystatin Powder 15gm Bottle 1 APPLIC TOPICAL ×2 (05:35→22:09)
[2017-12-26] MEDS: Pantoprazole Sodium 40 MG Tablet PO ×2 (05:35→17:22)
[2017-12-26] MEDS: oxyCODONE CR 15 MG Tablet PO (05:35)
[2017-12-26] MEDS: FLUoxetine 20 MG Capsule PO (05:36)
[2017-12-26 06:35] LABS: Bedside Glucose 90 mg/dL (70-110)
[2017-12-26] MEDS: Gabapentin 100 MG Capsule PO ×4 (08:12→22:10)
[2017-12-26] MEDS: Iron Polysaccharide Complex 150 MG CAPSULE PO (08:12)
[2017-12-26] MEDS: predniSONE 10 MG Tablet PO (08:12)
[2017-12-26 10:00] VITALS: PULSE 102; RESP 18; O2SAT 94
[2017-12-26] MEDS: Glucerna Shake 120 ML LIQUID PO ×2 (11:26→17:22)
--- NOTE | 2017-12-26 14:22 | NURSING ---
Patient states that the dressings were changed last evening since Dr Rainey wanted to assess the wounds. plan to change the dressings tomorrow morning. patient states there has been much less pain with dressings. patient should [facility] to [facility] after discharge from TCU. Hopefully patient would be able to tolerate debridement, although if wounds as Pyoderma Gangrenosum, wounds should not be debrided. the etiology of the wounds are still unknown.
[2017-12-26 15:52] VITALS: BP 120/52; PULSE 83; RESP 21; TEMP 36.8; O2SAT 98
[2017-12-26 17:23] VITALS: BP 120/52; PULSE 83
[2017-12-27] MEDS: oxyCODONE 5 MG Tablet PO (05:04)
[2017-12-27 05:05] VITALS: PULSE 89
[2017-12-27] MEDS: Metoprolol Tartrate 25 MG Tablet PO ×2 (05:05→17:07)
[2017-12-27] MEDS: Glucerna Shake 120 ML LIQUID PO ×2 (05:05→11:36)
[2017-12-27] MEDS: FLUoxetine 20 MG Capsule PO (05:05)
[2017-12-27] MEDS: Pantoprazole Sodium 40 MG Tablet PO ×2 (05:05→17:06)
[2017-12-27] MEDS: Nystatin Powder 15gm Bottle 1 APPLIC TOPICAL ×2 (05:05→20:43)
[2017-12-27] MEDS: Menthol/Lanolin/Calamine/Znox 113 GM Tube 1 APPLIC TOPICAL ×2 (05:06→20:42)
[2017-12-27] MEDS: Furosemide 20 MG Tablet PO (05:06)
[2017-12-27] MEDS: oxyCODONE CR 15 MG Tablet PO (06:12)
[2017-12-27 06:45] LABS: Anion Gap 6 (5-15); BUN 22 mg/dL (7-18); BUN/Creat Ratio 20.6 RATIO (10-20); Chloride 108 mmol/L (98-107); Creatinine, Serum 1.07 mg/dL (0.55-1.02); EST Glomerular Filtration Rate 54 mL/min (>60); Est Glom Filt Rate - Afr Amer 65 mL/min (>60); Estimated Creatinine Clearance 39.89 ml/min; Glucose 75 mg/dL (74-106); Potassium 4.7 mmol/L (3.5-5.1); Sodium Level 141 mmol/L (136-145)
[2017-12-27 06:46] LABS: Bedside Glucose 78 mg/dL (70-110)
[2017-12-27 07:08] LABS: Basophil# 0.01 X10^3/uL; Basophil% 0.1 % (0-1); Eosinophil# 0.09 X10^3/uL; Eosinophils% 0.9 % (0-5); Hematocrit 28.5 % (37-47); Hemoglobin 8.8 g/dl (12.0-15.0); Lymphocyte % 14.5 % (19-41); Mean Corp Hgb Conc 30.9 g/gl (32-36); Mean Corpuscular Hgb 24.2 pg (27.0-32.0); Mean Corpuscular Volume 78.3 fL (81-99); Monocyte# 0.74 X10^3/uL; Monocyte% 7.1 % (0-10); Neutrophil # 7.97 X10^3/uL (2.7-7.7); Platelet Count 234 K/mm3 (150-450); RBC Distribution Width CV 26.4 % (11.6-14.6); RBC Distribution Width SD 72.5 fl (35.1-43.9); Red Blood Count 3.64 M/mm3 (4.2-5.4); White Blood Count 10.4 K/mm3 (4.4-11.0)
[2017-12-27 07:10] LABS: Differential Indicated SCAN CRITERIA MET; POSITIVE COUNT NO; POSITIVE DIFFERENTIAL NO; POSITIVE MORPHOLOGY YES
[2017-12-27 07:33] LABS: Differential Comment SCAN
[2017-12-27 07:34] LABS: Anisocytosis 1+; Hypochromasia 1+; Microcytosis 1+; Polychromasia 1+
[2017-12-27] MEDS: Iron Polysaccharide Complex 150 MG CAPSULE PO (09:56)
[2017-12-27] MEDS: predniSONE 10 MG Tablet PO (09:56)
[2017-12-27] MEDS: Gabapentin 100 MG Capsule PO ×4 (09:56→20:43)
--- NOTE | 2017-12-27 10:01 | NURSING ---
wound photo: right medial lower leg
--- NOTE | 2017-12-27 10:01 | NURSING ---
wound photo: right lateral lower leg
--- NOTE | 2017-12-27 10:02 | NURSING ---
wound photo: left posterior/lateral lower leg
[2017-12-27 11:46] LABS: Bedside Glucose 126 mg/dL (70-110)
[2017-12-27 15:32] VITALS: BP 102/56; PULSE 92; RESP 20; TEMP 36.7; O2SAT 93
[2017-12-27 17:07] VITALS: BP 113/58; PULSE 92
[2017-12-27 17:09] VITALS: BP 113/58
[2017-12-28] MEDS: oxyCODONE 5 MG Tablet PO (01:08)
[2017-12-28] MEDS: oxyCODONE CR 15 MG Tablet PO (06:13)
[2017-12-28] MEDS: Nystatin Powder 15gm Bottle 1 APPLIC TOPICAL ×2 (06:13→21:14)
[2017-12-28] MEDS: Menthol/Lanolin/Calamine/Znox 113 GM Tube 1 APPLIC TOPICAL ×2 (06:14→21:14)
[2017-12-28 06:17] VITALS: BP 137/54; PULSE 96
[2017-12-28] MEDS: FLUoxetine 20 MG Capsule PO (06:17)
[2017-12-28] MEDS: Metoprolol Tartrate 25 MG Tablet PO ×2 (06:17→16:52)
[2017-12-28] MEDS: Pantoprazole Sodium 40 MG Tablet PO ×2 (06:17→16:52)
[2017-12-28 06:30] VITALS: PULSE 96; RESP 16; O2SAT 96
[2017-12-28 06:46] LABS: Bedside Glucose 73 mg/dL (70-110)
[2017-12-28] MEDS: predniSONE 10 MG Tablet PO (08:51)
[2017-12-28] MEDS: Iron Polysaccharide Complex 150 MG CAPSULE PO (08:51)
[2017-12-28] MEDS: Gabapentin 100 MG Capsule PO ×4 (08:51→21:13)
[2017-12-28] MEDS: Glucerna Shake 120 ML LIQUID PO (11:21)
[2017-12-28 13:51] VITALS: BP 100/56; PULSE 91; RESP 16; TEMP 35.9; O2SAT 94
--- NOTE | 2017-12-28 14:11 | CASEMGMT ---
Social Work Spoke with resident in room. Resident requesting for discharge date to be set for 12/31/17. Spoke with staff/therapy, 12/31/17 is an agreeable date at this time. Resident plans to discharge home with spouse. Nursing recommending for resident to follow up with home health care as well as the wound center, resident is agreeable. Resident requesting for home health services to be set up through [facility] ([facility]). Resident reporting to have all needed durable medical equipment already set up within the home. Resident family to provide transportation home for resident at time of discharge. Resident voicing no further needs at this time. Support given. Telephone call to [facility], [place]. This manager social media making referral for long term. Order to be completed. Proposed discharge date: 12/31/17 PLAN: Discharge home with spouse and home health services. Margo WALTERS, CARDIOLOGY TECHNOLOGIST
[2017-12-28 16:52] VITALS: PULSE 91
--- NOTE | 2017-12-28 20:39 | DCINST_ITS ---
- Discharge Diagnoses Current Active Problems: Current Active and Chronic Problems (Last Reviewed 12/26/17 @ 10:27 by Huang Alvarado MD) Weakness (Acute) Anemia (Acute) Edema (Chronic) Pulmonary hypertension (Chronic) Atrial fibrillation (Chronic) Chronic diastolic heart failure (Chronic) Diabetes mellitus (Chronic) Chronic kidney disease (Chronic) Lumbar spinal stenosis (Chronic) PAOD (peripheral arterial occlusive disease) (Chronic) Venous stasis ulcer (Chronic) Depression (Chronic) Neuropathic pain (Chronic) Hypokalemia (Acute) You will use the following diet at home:: No restrictions, Regular Your food should be the consistency of: Regular Your liquids should be the consistency of: Regular/Thin Discharge Activity: Return to Normal Activity, May Shower, Use Walker Weight Bearing Status: Weight bearing as tolerated Call your doctor if you observe: Fever of 101 or Higher, Inability to urinate, Inability to have a bowel movement, Shortness of breath, Chest pain, Uncontrolled pain Allergies/Adverse Reactions: Allergies amlodipine besylate [From Norvasc] Allergy (Verified 12/26/17 10:14) Unknown Shortness of breath ceftriaxone Allergy (Verified 12/26/17 10:14) Rash doxazosin mesylate [From Cardura] Allergy (Verified 12/26/17 10:14) Unknown Pt doesn't remember doxycycline Allergy (Verified 12/26/17 10:14) Unknown Pt doesn't remember enalapril maleate [From Vasotec] Allergy (Verified 12/26/17 10:14) Rash enalaprilat dihydrate [From Vasotec] Allergy (Verified 12/26/17 10:14) Rash hydroxyzine HCl [From Vistaril] Allergy (Verified 12/26/17 10:14) Rash hydroxyzine pamoate [From Vistaril] Allergy (Verified 12/26/17 10:14) Rash meperidine HCl [From Demerol] Allergy (Verified 12/26/17 10:14) Rash Sulfa (Sulfonamide Antibiotics) Allergy (Verified 12/26/17 10:14) Hives sulfamethoxazole [From Bactrim] Allergy (Verified 12/26/17 10:14) Hives trimethoprim [From Bactrim] Allergy (Verified 12/26/17 10:14) Hives Medications to take at Discharge Gabapentin [Neurontin] 100 mg PO 4X/DAY 09/29/17 Fluoxetine [Prozac] 20 mg PO DAILY 09/30/17 furosemide 40 mg tablet 20 mg PO QODAY tab 10/11/17 Ensure Clear 120 ml PO 4X/DAY 12/12/17 Metoprolol Tartrate [Lopressor (beta alok)] 25 mg PO BID 12/12/17 Potassium Chloride [K-Tab ER] 10 meq PO QDAY 12/12/17 Acetaminophen [Tylenol] 1,000 mg PO Q8H PRN PRN tablet 12/28/17 Iron Polysaccharide Complex [Ferrex 150] 150 mg PO DAILYCM #30 cap 12/28/17 Menthol/Lanolin/Calamine/Znox [Calmoseptine Ointment] 1 applic TOPICAL 0600, 2200 tube 12/28/17 Nystatin Powder [Mycostatin Powder] 1 applic TOPICAL 0600,2200 bottle 12/28/17 Oxycodone CR [Oxycontin] 15 mg PO DAILY #14 tablet 12/28/17 Oxycodone [Oxyir] 5 mg PO Q4H PRN PRN 5 Days #42 tab 12/28/17 Pantoprazole Sodium [Protonix] 40 mg PO BID #60 tab 12/28/17 Polyethylene Glycol 3350 [Miralax] 17 gm PO DAILY PRN #30 packet 12/28/17 Prednisone [Deltasone] See Taper PO DAILY #30 tab 12/28/17 The following prescriptions were given: Oxycodone [Oxyir] 5 mg PO Q4H PRN PRN 5 Days #42 tab PRN Reason: Breakthrough Pain (>4/10) Iron Polysaccharide Complex [Ferrex 150] 150 mg PO DAILYCM #30 cap Oxycodone CR [Oxycontin] 15 mg PO DAILY #14 tablet Polyethylene Glycol 3350 [Miralax] 17 gm PO DAILY PRN #30 packet PRN Reason: Constipation Prednisone [Deltasone] See Taper PO DAILY #30 tab Pantoprazole Sodium [Protonix] 40 mg PO BID #60 tab Primary Care Physician: Aaron Tidwell MD [Primary Care Provider] - Please follow up with your Primary Care Physician in: 1 week. Please Follow Up With: Huang Alvarado MD When: [phone] Please Follow Up With: Epifanio Childers MD When: [phone] Please Follow Up With: Aaron Tidwell MD When: [phone] Please Follow Up With: Shiloh @ [facility] When: [phone] Please Follow Up With: [facility] Center When: [phone] Proposed Discharge Date: 12/31/17
--- NOTE | 2017-12-28 20:39 | PCM.DC.SUM ---
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) Abnormal screening CT of chest (Chronic) LYN on CPAP (Chronic) Acute on chronic diastolic (congestive) heart failure (Chronic) Calcinosis (Chronic) Edema (Chronic) Pulmonary hypertension (Chronic) Atrial fibrillation (Chronic) Chronic diastolic heart failure (Chronic) Diabetes mellitus (Chronic) Chronic kidney disease (Chronic) Lumbar spinal stenosis (Chronic) PAOD (peripheral arterial occlusive disease) (Chronic) Venous stasis ulcer (Chronic) Depression (Chronic) Neuropathic pain (Chronic) Edema, lower extremity (Chronic) Pulmonary hypertension, secondary (Chronic) History of cardiac radiofrequency ablation (RFA) (Chronic) 1st part of MAZE procedure Lt Atrial Ablation 01/12/17 @ [facility] Localized edema (Chronic) Heart failure with 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 (Chronic) retirement current use of anticoagulant (Chronic) Chronic atrial fibrillation (Chronic) [facility] 10/10, 10/2015; MAZE procedure @ [facility] 01/12/2017; Status post placement of implantable loop recorder (Chronic) Loop recorder implant 01/03/[address] 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 calciphylaxis vs. erythema nodosum vs. dermatomyositis vs. panniculitis Mass of soft tissue of right lower extremity (Chronic) right inner upper thigh - ? calciphylaxis vs. erythema nodosum vs. dermatomyositis vs. panniculitis Hospital Course and Treatment Imaging Results: 12/12/17 Dinner Diet: Calorie Controlled Food consistency:: Regular Liquid Consistency:: Regular/Thin Is pt able to select menu?: Yes Diet Comments: SUGAR FREE LIQUIDS, LOW GASTRIC STIMULANTS How many daily calories?: 1600 calorie Clinical Impression(s) from Imaging Studies KUB X-Ray 12/18/17 08:22 IMPRESSION: Multiple right-sided rib fractures. Patchy bilateral airspace disease. Small right pleural effusion. Nonobstructive abdominal bowel gas pattern. Electronically Signed: Fidel Cortez DO at 9:37 EDT Tel , Service support , Labs (Last 48 Hours) 12/27/17 12/27/17 12/27/17 05:10 05:10 06:21 WBC 10.4 RBC 3.64 L Hgb 8.8 L Hct 28.5 L MCV 78.3 L MCH 24.2 L MCHC 30.9 L RDW 26.4 H RDW Differential 72.5 H Plt Count 234 MPV 10.0 Immature Gran % (Auto) 0.400 Neut % (Auto) 77.0 H Lymph % (Auto) 14.5 L Blair % (Auto) 7.1 Eos % (Auto) 0.9 Baso % (Auto) 0.1 Absolute Neuts (auto) 8.0 H Absolute Lymphs (auto) 1.50 Total Counted Not Reportable Differential Comment SCAN Polychromasia 1+ Hypochromasia 1+ Anisocytosis 1+ Microcytosis 1+ Sodium 141 Potassium 4.7 Chloride 108 H Carbon Dioxide 27.0 Anion Gap 6 BUN 22 H Creatinine 1.07 H Estim Creat Clear Calc 39.89 Est GFR (MDRD) Af Amer 65 Est GFR (MDRD) Non-Af 54 L BUN/Creatinine Ratio 20.6 H Glucose 75 Calcium 8.0 L POC Glucose 78 12/27/17 12/28/17 11:40 06:41 WBC RBC Hgb Hct MCV MCH MCHC RDW RDW Differential Plt Count MPV Immature Gran % (Auto) Neut % (Auto) Lymph % (Auto) Blair % (Auto) Eos % (Auto) Baso % (Auto) Absolute Neuts (auto) Absolute Lymphs (auto) Total Counted Differential Comment Polychromasia Hypochromasia Anisocytosis Microcytosis Sodium Potassium Chloride Carbon Dioxide Anion Gap BUN Creatinine Estim Creat Clear Calc Est GFR (MDRD) Af Amer Est GFR (MDRD) Non-Af BUN/Creatinine Ratio Glucose Calcium POC Glucose 126 H 73 Consultations 12/12/17 Consult: Onc/Wound/planograph operator Routine Comment: Reason for Consult:: WOUNDS BLE'S Operations: None Procedures: None Summary of Care Provided: The patient is a 72 year old Female with below past medical history hospitalized for gastrointestinal bleeding secondary to Xarelto coagulopathy, complicated by anemia requiring 1 unit PRBC transfusion, K. Pneumoniae UTI, pyoderma gangrenosum of legs, admitted to TCU for debility, here for rehabilitation, strengthening, wound care, prior to discharge home with spouse. Ulcers of legs presumed pyoderma gangrenosum, improved with steroids, strongly consider dermatology referral for biopsy, definitive diagnosis. Resident has atrial fibrillation, currently off Xarelto due to GI bleed, consider restarting anticoagulation with lower risk anticoagulant. [] Discharge home with spouse, and Home health services. Discharge Diet: No Restrictions Discharge Activity: Return to Normal Activity, May Shower, Use Walker Weight Bearing Status: Weight bearing as tolerated Call your doctor if you observe: Fever of 101 or Higher, Inability to urinate, Inability to have a bowel movement, Shortness of breath, Chest pain, Uncontrolled pain Home Medications: Medications to take at Discharge Gabapentin [Neurontin] 100 mg PO 4X/DAY 09/29/17 Fluoxetine [Prozac] 20 mg PO DAILY 09/30/17 furosemide 40 mg tablet 20 mg PO QODAY tab 10/11/17 Ensure Clear 120 ml PO 4X/DAY 12/12/17 Metoprolol Tartrate [Lopressor (beta alok)] 25 mg PO BID 12/12/17 Potassium Chloride [K-Tab ER] 10 meq PO QDAY 12/12/17 Acetaminophen [Tylenol] 1,000 mg PO Q8H PRN PRN tablet 12/28/17 Iron Polysaccharide Complex [Ferrex 150] 150 mg PO DAILYCM #30 cap 04/05/18 Menthol/Lanolin/Calamine/Znox [Calmoseptine Ointment] 1 applic TOPICAL 0600,2200 tube 12/28/17 Nystatin Powder [Mycostatin Powder] 1 applic TOPICAL 0600,2200 bottle 12/28/17 Oxycodone CR [Oxycontin] 15 mg PO DAILY #14 tablet 12/28/17 Oxycodone [Oxyir] 5 mg PO Q4H PRN PRN 5 Days #42 tab 12/28/17 Pantoprazole Sodium [Protonix] 40 mg PO BID #60 tab 12/28/17 Polyethylene Glycol 3350 [Miralax] 17 gm PO DAILY PRN #30 packet 12/28/17 Prednisone [Deltasone] See Taper PO DAILY #30 tab 12/28/17 Following Prescrptions Were Given to Patient: Oxycodone [Oxyir] 5 mg PO Q4H PRN PRN 5 Days #42 tab PRN Reason: Breakthrough Pain (>4/10) Iron Polysaccharide Complex [Ferrex 150] 150 mg PO DAILYCM #30 cap Oxycodone CR [Oxycontin] 15 mg PO DAILY #14 tablet Polyethylene Glycol 3350 [Miralax] 17 gm PO DAILY PRN #30 packet PRN Reason: Constipation Prednisone [Deltasone] See Taper PO DAILY #30 tab Pantoprazole Sodium [Protonix] 40 mg PO BID #60 tab Primary Care Physician: Aaron Tidwell MD [Primary Care Provider] - Please follow up with your Primary Care Physician in: 1 week. Please Follow Up With: Huang Alvarado MD When: [phone] Please Follow Up With: Epifanio Childers MD When: [phone] Please Follow Up With: Aaron Tidwell MD When: [phone] Please Follow Up With: Shiloh @ [facility] When: [phone] Please Follow Up With: [facility] When: [phone] Disposition: Home with Home Health Minutes spent on discharge:: 35 Patient Condition:: Stable Medical Necessity - Tobacco Use Smoking Status: Never smoker Tobacco Use: Non-smoker Meaningful Use Info Meaningful Use Diagnoses (Choose all that apply): None applicable
--- NOTE | 2017-12-28 20:44 | HHNOTE_ITS ---
Home Health Note - Plan Overview of reason of hospitalization: The patient is a 72 year old Female with below past medical history hospitalized for gastrointestinal bleeding secondary to Xarelto coagulopathy, complicated by anemia requiring 1 unit PRBC transfusion, K. Pneumoniae UTI, pyoderma gangrenosum of legs, admitted to TCU for debility, here for rehabilitation, strengthening, wound care, prior to discharge home with spouse. Ulcers of legs presumed pyoderma gangrenosum, improved with steroids, strongly consider dermatology referral for biopsy, definitive diagnosis. Resident has atrial fibrillation, currently off Xarelto due to GI bleed, consider restarting anticoagulation with lower risk anticoagulant. [] Discharge home with spouse, and Home health services. Problems: Patient was seen for (Last Reviewed 12/26/17 @ 10:27 by Huang Alvarado MD) Weakness (Acute) Anemia (Acute) Edema (Chronic) Pulmonary hypertension (Chronic) Atrial fibrillation (Chronic) Chronic diastolic heart failure (Chronic) Diabetes mellitus (Chronic) Chronic kidney disease (Chronic) Lumbar spinal stenosis (Chronic) PAOD (peripheral arterial occlusive disease) (Chronic) Venous stasis ulcer (Chronic) Depression (Chronic) Neuropathic pain (Chronic) Hypokalemia (Acute) Complete List of Medical Problems (Last Reviewed 12/26/17 @ 10:27 by Huang Alvarado MD) Other group home (current) drug therapy (Chronic) Abnormal screening CT of chest (Chronic) LYN on CPAP (Chronic) Acute on chronic diastolic (congestive) heart failure (Chronic) Calcinosis (Chronic) Lower GI bleed (Acute) Chronic A. fib on Xarelto (Acute) Recurrent falls (Acute) Generalized weakness (Acute) Weakness (Acute) Anemia (Acute) Edema (Chronic) Pulmonary hypertension (Chronic) Atrial fibrillation (Chronic) Chronic diastolic heart failure (Chronic) Diabetes mellitus (Chronic) Chronic kidney disease (Chronic) Lumbar spinal stenosis (Chronic) PAOD (peripheral arterial occlusive disease) (Chronic) Venous stasis ulcer (Chronic) Depression (Chronic) Neuropathic pain (Chronic) Hypokalemia (Acute) Edema, lower extremity (Chronic) Pulmonary hypertension, secondary (Chronic) History of cardiac radiofrequency ablation (RFA) (Chronic) Dyspnea on exertion (Acute) Localized edema (Chronic) Heart failure with 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 (Chronic) 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) Chronic atrial fibrillation (Chronic) Status post placement of implantable loop recorder (Chronic) History of maze procedure (Chronic) Other secondary pulmonary hypertension (Chronic) Chronic diastolic (congestive) heart failure (Chronic) GI bleeding (Acute) Symptomatic anemia (Chronic) Hypertension (Chronic) Type 2 diabetes mellitus (Chronic) Lung nodule (Chronic) Chronic kidney disease, stage 3 (Chronic) Shortness of breath (Acute) 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) PAD (peripheral artery disease) (Chronic) Venous stasis ulcer of left lower leg with edema of left lower leg (Chronic) Venous stasis ulcer of right lower leg with edema of right lower leg (Chronic) Arthralgia (Chronic) Myalgia (Chronic) Mass of soft tissue of left lower extremity (Chronic) Mass of soft tissue of right lower extremity (Chronic) - Requirements and Reasons Disciplines Needed/Ordered: [facility] Reason for Disciplines: Disease Specific Monitoring/education, Medication Management/Knowledge Deficit, Wound Care Related To: Unsteady Gait/Balance, Fall Risk Patient is unable to leave the home: Without Aid of Supportive Devices (crutches , cane, wheelchair, walker), Without the assistance of another person
--- NOTE | 2017-12-28 20:44 | DS.PCM_ITS ---
Discharge Date and Diagnosis - Problem List Patient Problems: Active and Suspected Problems (Last Reviewed 12/26/17 @ 10:27 by Huang Alvarado MD) Weakness (Acute) Anemia (Acute) Hypokalemia (Acute) Date of Admission: 12/12/17 Date of Discharge: 12/31/17 - Primary Discharge Diagnosis Active and Suspected Problems (Last Reviewed 12/26/17 @ 10:27 by Huang Alvarado MD) Weakness (Acute) Anemia (Acute) Hypokalemia (Acute) - Secondary Discharge Diagnosis Chronic Problems (Last Reviewed 12/26/17 @ 10:27 by Huang Alvarado MD) Other retirement (current) drug therapy (Chronic) Abnormal screening CT of chest (Chronic) LYN on CPAP (Chronic) Acute on chronic diastolic (congestive) heart failure (Chronic) Calcinosis (Chronic) Edema (Chronic) Pulmonary hypertension (Chronic) Atrial fibrillation (Chronic) Chronic diastolic heart failure (Chronic) Diabetes mellitus (Chronic) Chronic kidney disease (Chronic) Lumbar spinal stenosis (Chronic) PAOD (peripheral arterial occlusive disease) (Chronic) Venous stasis ulcer (Chronic) Depression (Chronic) Neuropathic pain (Chronic) Edema, lower extremity (Chronic) Pulmonary hypertension, secondary (Chronic) History of cardiac radiofrequency ablation (RFA) (Chronic) 1st part of MAZE procedure Lt Atrial Ablation 01/12/17 @ [facility] Localized edema (Chronic) Heart failure with 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 (Chronic) 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 calciphylaxis vs. erythema nodosum vs. dermatomyositis vs. panniculitis Mass of soft tissue of right lower extremity (Chronic) right inner upper thigh - ? calciphylaxis vs. erythema nodosum vs. dermatomyositis vs. panniculitis Hospital Course and Treatment Imaging Results: 12/12/17 Dinner Diet: Calorie Controlled Food consistency:: Regular Liquid Consistency:: Regular/Thin Is pt able to select menu?: Yes Diet Comments: SUGAR FREE LIQUIDS, LOW GASTRIC STIMULANTS How many daily calories?: 1600 calorie Clinical Impression(s) from Imaging Studies KUB X-Ray 12/18/17 08:22 IMPRESSION: Multiple right-sided rib fractures. Patchy bilateral airspace disease. Small right pleural effusion. Nonobstructive abdominal bowel gas pattern. Electronically Signed: Fidel Cortez DO at 9:37 EDT Tel , Service support , Labs (Last 48 Hours) 12/27/17 12/27/17 12/27/17 05:10 05:10 06:21 WBC 10.4 RBC 3.64 L Hgb 8.8 L Hct 28.5 L MCV 78.3 L MCH 24.2 L MCHC 30.9 L RDW 26.4 H RDW Differential 72.5 H Plt Count 234 MPV 10.0 Immature Gran % (Auto) 0.400 Neut % (Auto) 77.0 H Lymph % (Auto) 14.[address] % (Auto) 7.1 Eos % (Auto) 0.9 Baso % (Auto) 0.1 Absolute Neuts (auto) 8.0 H Absolute Lymphs (auto) 1.50 Total Counted Not Reportable Differential Comment SCAN Polychromasia 1+ Hypochromasia 1+ Anisocytosis 1+ Microcytosis 1+ Sodium 141 Potassium 4.7 Chloride 108 H Carbon Dioxide 27.0 Anion Gap 6 BUN 22 H Creatinine 1.07 H Estim Creat Clear Calc 39.89 Est GFR (MDRD) Af Amer 65 Est GFR (MDRD) Non-Af 54 L BUN/Creatinine Ratio 20.6 H Glucose 75 Calcium 8.0 L POC Glucose 78 12/27/17 12/28/17 11:40 06:41 WBC RBC Hgb Hct MCV MCH MCHC RDW RDW Differential Plt Count MPV Immature Gran % (Auto) Neut % (Auto) Lymph % (Auto) Lane % (Auto) Eos % (Auto) Baso % (Auto) Absolute Neuts (auto) Absolute Lymphs (auto) Total Counted Differential Comment Polychromasia Hypochromasia Anisocytosis Microcytosis Sodium Potassium Chloride Carbon Dioxide Anion Gap BUN Creatinine Estim Creat Clear Calc Est GFR (MDRD) Af Amer Est GFR (MDRD) Non-Af BUN/Creatinine Ratio Glucose Calcium POC Glucose 126 H 73 Consultations 12/12/17 Consult: Onc/Wound/chief librarian extension department Routine Comment: Reason for Consult:: WOUNDS BLE'S Operations: None Procedures: None Summary of Care Provided: The patient is a 72 year old Female with below past medical history hospitalized for gastrointestinal bleeding secondary to Xarelto coagulopathy, complicated by anemia requiring 1 unit PRBC transfusion, K. Pneumoniae UTI, pyoderma gangrenosum of legs, admitted to TCU for debility, here for rehabilitation, strengthening, wound care, prior to discharge home with spouse. Ulcers of legs presumed pyoderma gangrenosum, improved with steroids, strongly consider dermatology referral for biopsy, definitive diagnosis. Resident has atrial fibrillation, currently off Xarelto due to GI bleed, consider restarting anticoagulation with lower risk anticoagulant. [] Discharge home with spouse, and Home health services. Discharge Diet: No Restrictions Discharge Activity: Return to Normal Activity, May Shower, Use Walker Weight Bearing Status: Weight bearing as tolerated Call your doctor if you observe: Fever of 101 or Higher, Inability to urinate, Inability to have a bowel movement, Shortness of breath, Chest pain, Uncontrolled pain Home Medications: Medications to take at Discharge Gabapentin [Neurontin] 100 mg PO 4X/DAY 09/29/17 Fluoxetine [Prozac] 20 mg PO DAILY 09/30/17 furosemide 40 mg tablet 20 mg PO QODAY tab 10/11/17 Ensure Clear 120 ml PO 4X/DAY 12/12/17 Metoprolol Tartrate [Lopressor (beta alok)] 25 mg PO BID 12/12/17 Potassium Chloride [K-Tab ER] 10 meq PO QDAY 12/12/17 Acetaminophen [Tylenol] 1,000 mg PO Q8H PRN PRN tablet 12/28/17 Iron Polysaccharide Complex [Ferrex 150] 150 mg PO DAILYCM #30 cap 04/05/18 Menthol/Lanolin/Calamine/Znox [Calmoseptine Ointment] 1 applic TOPICAL 0600, 2200 tube 12/28/17 Nystatin Powder [Mycostatin Powder] 1 applic TOPICAL 0600,2200 bottle 12/28/17 Oxycodone CR [Oxycontin] 15 mg PO DAILY #14 tablet 12/28/17 Oxycodone [Oxyir] 5 mg PO Q4H PRN PRN 5 Days #42 tab 12/28/17 Pantoprazole Sodium [Protonix] 40 mg PO BID #60 tab 12/28/17 Polyethylene Glycol 3350 [Miralax] 17 gm PO DAILY PRN #30 packet 12/28/17 Prednisone [Deltasone] See Taper PO DAILY #30 tab 12/28/17 Following Prescrptions Were Given to Patient: Oxycodone [Oxyir] 5 mg PO Q4H PRN PRN 5 Days #42 tab PRN Reason: Breakthrough Pain (>4/10) Iron Polysaccharide Complex [Ferrex 150] 150 mg PO DAILYCM #30 cap Oxycodone CR [Oxycontin] 15 mg PO DAILY #14 tablet Polyethylene Glycol 3350 [Miralax] 17 gm PO DAILY PRN #30 packet PRN Reason: Constipation Prednisone [Deltasone] See Taper PO DAILY #30 tab Pantoprazole Sodium [Protonix] 40 mg PO BID #60 tab Primary Care Physician: Aaron Tidwell MD [Primary Care Provider] - Please follow up with your Primary Care Physician in: 1 week. Please Follow Up With: Huang Alvarado MD When: [phone] Please Follow Up With: Epifanio Childers MD When: [phone] Please Follow Up With: Aaron Tidwell MD When: [phone] Please Follow Up With: Shiloh @ [facility] When: [phone] Please Follow Up With: Wound Center When: [phone] Disposition: Home with Home Health Minutes spent on discharge:: 35 Patient Condition:: Stable Medical Necessity - Tobacco Use Smoking Status: Never smoker Tobacco Use: Non-smoker Meaningful Use Info Meaningful Use Diagnoses (Choose all that apply): None applicable
[2017-12-29] MEDS: oxyCODONE 5 MG Tablet PO ×2 (00:20→21:38)
[2017-12-29 05:05] VITALS: BP 119/66; PULSE 89
[2017-12-29] MEDS: Metoprolol Tartrate 25 MG Tablet PO ×2 (05:05→16:43)
[2017-12-29] MEDS: Pantoprazole Sodium 40 MG Tablet PO ×2 (05:08→16:44)
[2017-12-29] MEDS: Menthol/Lanolin/Calamine/Znox 113 GM Tube 1 APPLIC TOPICAL ×2 (05:08→21:39)
[2017-12-29] MEDS: FLUoxetine 20 MG Capsule PO (05:08)
[2017-12-29] MEDS: Furosemide 20 MG Tablet PO (05:08)
[2017-12-29] MEDS: Nystatin Powder 15gm Bottle 1 APPLIC TOPICAL ×2 (05:08→21:39)
[2017-12-29] MEDS: Glucerna Shake 120 ML LIQUID PO ×2 (05:11→11:44)
[2017-12-29] MEDS: oxyCODONE CR 15 MG Tablet PO (05:12)
[2017-12-29 06:45] LABS: Bedside Glucose 93 mg/dL (70-110)
[2017-12-29] MEDS: predniSONE 10 MG Tablet PO (08:09)
[2017-12-29] MEDS: Iron Polysaccharide Complex 150 MG CAPSULE PO (08:10)
[2017-12-29] MEDS: Gabapentin 100 MG Capsule PO ×4 (08:10→21:40)
[2017-12-29 14:08] VITALS: BP 94/51; PULSE 61; RESP 18; TEMP 36; O2SAT 98
[2017-12-29 16:43] VITALS: BP 102/60; PULSE 89
[2017-12-29 21:40] VITALS: PULSE 94; RESP 16; O2SAT 94
[2017-12-30] MEDS: oxyCODONE CR 15 MG Tablet PO (06:07)
[2017-12-30] MEDS: Pantoprazole Sodium 40 MG Tablet PO ×2 (06:09→17:41)
[2017-12-30] MEDS: Nystatin Powder 15gm Bottle 1 APPLIC TOPICAL ×2 (06:09→20:25)
[2017-12-30] MEDS: FLUoxetine 20 MG Capsule PO (06:09)
[2017-12-30 06:10] VITALS: BP 112/64; PULSE 94
[2017-12-30] MEDS: Metoprolol Tartrate 25 MG Tablet PO ×2 (06:10→17:42)
[2017-12-30] MEDS: Menthol/Lanolin/Calamine/Znox 113 GM Tube 1 APPLIC TOPICAL ×2 (06:10→20:25)
[2017-12-30] MEDS: Glucerna Shake 120 ML LIQUID PO ×2 (06:14→11:35)
[2017-12-30 07:01] LABS: Bedside Glucose 86 mg/dL (70-110)
[2017-12-30] MEDS: Iron Polysaccharide Complex 150 MG CAPSULE PO (08:21)
[2017-12-30] MEDS: Gabapentin 100 MG Capsule PO ×4 (08:21→20:25)
[2017-12-30] MEDS: predniSONE 10 MG Tablet PO (08:21)
[2017-12-30 16:00] VITALS: BP 116/56; PULSE 99; RESP 22; TEMP 37.1; O2SAT 94
[2017-12-30 17:42] VITALS: BP 116/56; PULSE 99
[2017-12-30] MEDS: oxyCODONE 5 MG Tablet PO (20:24)
--- NOTE | 2017-12-30 23:39 | NURSING ---
This nurse in to observe Pt son in changing Pt wound dressing. Pt son will be doing dressing changes once Pt discharges home. Pt son understanding and competent in the process.
[2017-12-31 01:41] VITALS: PULSE 84; RESP 18; O2SAT 95
[2017-12-31 06:43] VITALS: BP 134/78; PULSE 82
[2017-12-31] MEDS: Pantoprazole Sodium 40 MG Tablet PO (06:43)
[2017-12-31] MEDS: Metoprolol Tartrate 25 MG Tablet PO (06:43)
[2017-12-31] MEDS: FLUoxetine 20 MG Capsule PO (06:43)
[2017-12-31] MEDS: oxyCODONE CR 15 MG Tablet PO (06:43)
[2017-12-31] MEDS: Furosemide 20 MG Tablet PO (06:43)
[2017-12-31] MEDS: Menthol/Lanolin/Calamine/Znox 113 GM Tube 1 APPLIC TOPICAL (06:43)
[2017-12-31] MEDS: Nystatin Powder 15gm Bottle 1 APPLIC TOPICAL (06:44)
[2017-12-31 06:51] LABS: Bedside Glucose 91 mg/dL (70-110)
[2017-12-31] MEDS: Iron Polysaccharide Complex 150 MG CAPSULE PO (08:02)
[2017-12-31] MEDS: predniSONE 10 MG Tablet PO (08:02)
[2017-12-31] MEDS: Gabapentin 100 MG Capsule PO (08:02)
[2017-12-31 10:15] VITALS: BP 103/58; PULSE 89; RESP 20; TEMP 36.7; O2SAT 93
--- NOTE | 2018-01-02 11:27 | CASEMGMT ---
Insurance Notified insurance of resident discharge on 12/31/17 to home with spouse and home health services. Auth#[id number] Margo WALTERS, EX CHEF
--- NOTE | 2018-01-09 10:40 | MDS.RN ---
Information for the mds was obtained from review of the clinical record, interview of resident, staff, and direct observation of resident's care.
== END 2017-12-31 10:16 | disposition home health service (06) | DRG 948 ==
PROVIDERS: Admitting Provider Family Medicine Geriatric Medicine; Family Provider Internal Medicine; PCP Internal Medicine; Visit Provider Family Medicine Geriatric Medicine
DX: R53.81 Other malaise (principal); E11.22 Type 2 diabetes mellitus with diabetic chronic kidney disease; E11.51 Type 2 diabetes mellitus with diabetic peripheral angiopathy without gangrene; I27.20 Pulmonary hypertension, unspecified; K92.2 Gastrointestinal hemorrhage, unspecified; I13.0 Hypertensive heart and chronic kidney disease with heart failure and stage 1 through stage 4 chronic kidney disease, or unspecified chronic kidney disease; I50.32 Chronic diastolic (congestive) heart failure; L88 Pyoderma gangrenosum; L97.919 Non-pressure chronic ulcer of unspecified part of right lower leg with unspecified severity; E11.52 Type 2 diabetes mellitus with diabetic peripheral angiopathy with gangrene; N39.0 Urinary tract infection, site not specified; I48.2 Chronic atrial fibrillation; E87.6 Hypokalemia; F32.9 Major depressive disorder, single episode, unspecified; N18.3 Chronic kidney disease, stage 3 (moderate); R91.1 Solitary pulmonary nodule; M48.061 Spinal stenosis, lumbar region without neurogenic claudication; Z79.899 Other long term (current) drug therapy; Z91.81 History of falling; I27.29 Other secondary pulmonary hypertension; E11.622 Type 2 diabetes mellitus with other skin ulcer; I83.028 Varicose veins of left lower extremity with ulcer other part of lower leg; I83.018 Varicose veins of right lower extremity with ulcer other part of lower leg; G47.33 Obstructive sleep apnea (adult) (pediatric); B96.1 Klebsiella pneumoniae [K. pneumoniae] as the cause of diseases classified elsewhere
CPT/HCPCS: 36415; 74018; 80048; 82962; 85025; 97110; 97116; 97162; 97165; 97530; 97535; 97802; A4216

== ENCOUNTER 2018-01-17 15:30 | Outpatient (RCR) | payer MEDICARE, SELFPAY ==
[2017-12-24 00:40] VITALS: BP 120/69; PULSE 111; RESP 16; TEMP 36.2; BMI 35.4
[2018-01-03 12:41] VITALS: BP 93/57; PULSE 102; RESP 16; TEMP 35.9; BMI 35.4
--- NOTE | 2018-01-03 17:07 | PN.PCM_ITS ---
(1) Venous stasis ulcer of left lower leg with edema of left lower leg Status: Chronic Current Visit: Yes Code(s): I83.892 - Varicose veins of left lower extremity with other complications; I83.028 - Varicose veins of left lower extremity with ulcer other part of lower leg; R60.9 - Edema, unspecified (2) Venous stasis ulcer of right lower leg with edema of right lower leg Status: Chronic Current Visit: Yes Code(s): I83.891 - Varicose veins of right lower extremity with other complications; I83.018 - Varicose veins of right lower extremity with ulcer other part of lower leg; R60.9 - Edema, unspecified (3) Pain in right leg Status: Chronic Current Visit: Yes Code(s): M79.604 - Pain in right leg (4) Pain in left leg Status: Chronic Current Visit: Yes Code(s): M79.605 - Pain in left leg (5) Delayed wound healing Status: Chronic Current Visit: Yes Code(s): T14.8XXD - Other injury of unspecified body region, subsequent encounter (6) Localized edema Status: Chronic Current Visit: Yes Code(s): R60.0 - Localized edema Type of Wound Date of Service: 01/03/18 Chief Complaint: Wounds/ulcers of b/l lower legs History of Wound: Di is a 72 yo [address] patient of Dr. Smith that return for follow up of bilateral leg ulcers. She has been in the transitional care unit following a series of falls and subsequent ICU admission. She has been changing the dressings every other day and denies odor or redness. Home health is helping her change the dressings. She has been applying hydrogel and states she is ready for debridement today. She has been recently cared for by Dr. Rainey and is on a 30 day tapered course of prednisone. Her venous studies showed incompetent left SFJ. She will follow up with Dr. Pelaez regarding the results of this testing for possible procedure to address SFJ incompetence. She follows with Dr. Childers for cardiology and was recently seen by his nurse practitioner for routine follow up. She denies fever, chills, nausea, vomiting. She denies calf pain. She is with her today. Progress of Wound: Improving - Physical Exam Vital Signs Temp Pulse Resp BP 96.6 F L 102 H 16 93/57 L 01/03/18 12:41 01/03/18 12:41 01/03/18 12:41 01/03/18 12:41 General: Alert, Oriented x3, Cooperative Extremities: No cyanosis, Capillary Refill Less than 3 Seconds, No Calf Tenderness - Negative Kimberly and Layton sign bilateral, Diminished Peripheral Pulses, Edema - Decreased bilateral lower extremities Skin: Ulcer/ Wound - Decreased wound manipulation. No purulence, no erythema, streaking, odor, no. There is moist eschar with liquefied tissue upon debridement there is some granulation tissue and decreased fibrous tissue. There is no exposed bone or fascia or muscle. Her skin is atrophic and hairless bilateral lower extremities Wound Measurements and Assessment WC - Nurse 1 - General Ulcer Measurement Start: 01/03/18 12:41 Freq: Status: Active Protocol: Activity Type Activity Date Activity User E-Sign Co-Sign Detail Recorded Client Recorded Date Recorded By Document 01/03/18 12:41 [id number] 01/03/18 13:00 [facility] 01/03/18 12:41 Wound Center Nurse 1 [Ulcer Assessment] #4 Left calf -Combined with other wound No -Current Size (cm) - Length 17.3 -Current Size (cm) - Width 11.2 -Current Size (cm) - Depth 0.2 -Total Square Cm 193.76 -Date of Last Picture (Recall this 01/03/18 field) -Photo Taken Yes -Epithelialization None Present -Tunneling No -Undermining/Tunneling No -Circular Undermining No -Exudate Amt Large (67-100%) -Exudate Type Serosanguineous -Wound Margin Distinct, Outline Attached -Granulation Amt None Present (0 %) -Slough/Fibrin Yes -Necrosis Amt Large (67-100%) -Necrotic Tissue Type Eschar -Structure Exposed N/A -Texture (Gabriella-wound Skin Appearance) Scarring -Color (Gabriella-wound Skin Appearance) Erythema -Temperature (Gabriella-wound Skin No Abnormality Appearance) (Pt Warm) -Tenderness on Palpation (Gabriella-wound Yes Skin Appearance) -Ulcer Cleansing Rinsed/ Irrigated with Saline -Foul Odor after Cleansing No -Anesthetic Used 4% Lidocaine Solution #3 RIGHT MEDIAL LE CLUSTER -Combined with other wound No -Current Size (cm) - Length 16 -Current Size (cm) - Width 24 -Current Size (cm) - Depth 0.2 -Total Square Cm 384 -Date of Last Picture (Recall this 01/03/18 field) -Photo Taken Yes -Epithelialization None Present -Tunneling No -Undermining/Tunneling No -Circular Undermining No -Exudate Amt Large (67-100%) -Exudate Type Serosanguineous -Wound Margin Distinct, Outline Attached -Granulation Amt None Present (0 %) -Slough/Fibrin Yes -Necrosis Amt Large (67-100%) -Necrotic Tissue Type Eschar -Structure Exposed N/A -Texture (Gabriella-wound Skin Appearance) Scarring -Moisture (Gabriella-wound Skin Appearance Assessed ) -Color (Gabriella-wound Skin Appearance) Erythema -Temperature (Gabriella-wound Skin No Abnormality Appearance) (Pt Warm) -Tenderness on Palpation (Gabriella-wound Yes Skin Appearance) -Ulcer Cleansing Rinsed/ Irrigated with Saline -Foul Odor after Cleansing No -Anesthetic Used 4% Lidocaine Solution [Edema Assessment] -Lower Limb Edema Present No -Right Calf (cm) 32.6 -Right Ankle (cm) 21.4 -Left Calf (cm) 32.1 -Left Ankle (cm) 20.9 WC - Nurse 2 - General Ulcer CM Notes Start: 01/03/18 12:41 Freq: Status: Active Protocol: Activity Type Activity Date Activity User E-Sign Co-Sign Detail Recorded Client Recorded Date Recorded By Document 01/03/18 13:32 [id number] 01/03/18 13:48 01/03/18 13:32 Wound Center Nurse 2 [Procedure/Treatment] #4 Left calf -Time 13:48 -Correct Patient Yes -Correct Side, Site, Position Yes -Correct Procedure Yes -Procedure Performed Yes -Type of Procedure Debridement -Clinical Debridement Subcutaneous -Post Debridement Size (cm) - Length 17.5 -Post Debridement Size (cm) - Width 11.2 -Post Debridement Size (cm) - Depth 0.2 -Total Square Cm 196.00 -Wound/Ulcer Outcome Not Healed -Ulcer Cleansing Rinsed/ Irrigated with Saline -Foul Odor after Cleansing No -Bioengineered Tissue No -Bleeding Controlled with Pressure -Treatment Response Procedure Tolerated Well #3 RIGHT MEDIAL LE CLUSTER -Time 13:33 -Correct Patient Yes -Correct Side, Site, Position Yes -Correct Procedure Yes -Procedure Performed Yes -Type of Procedure Debridement -Clinical Debridement Subcutaneous -Post Debridement Size (cm) - Length 16 -Post Debridement Size (cm) - Width 24.1 -Post Debridement Size (cm) - Depth 0.2 -Total Square Cm 385.6 -Wound/Ulcer Outcome Not Healed -Ulcer Cleansing Rinsed/ Irrigated with Saline -Foul Odor after Cleansing No -Bioengineered Tissue No -Bleeding Controlled with Pressure -Treatment Response Procedure Tolerated Well [See Physician Procedure note for Specifics] Pain Scale: 0-10 Numeric [Pain] -Is Patient Pain Free? Yes Musculoskeletal: No Tenderness to Palpation of Joints or Extremities, Muscle Wasting, Tenderness - Pain with wound manipulation is decreased bilateral and she is able to tolerate debridement today, - - Compartment soft bilateral lower extremities Neurological: Sensory exam intact to light touch and pain Psych/Mental Status: Normal Affect, Appropriate Debridement Note Post-Debridement Measurements/Treatment WC - Nurse 2 - General Ulcer CM Notes Start: 01/03/18 12:41 Freq: Status: Active Protocol: Activity Type Activity Date Activity User E-Sign Co-Sign Detail Recorded Client Recorded Date Recorded By Document 01/03/18 13:32 [id number] 01/03/18 13:48 BJ 01/03/18 13:32 Wound Center Nurse 2 #4 Left calf -Time 13:48 -Correct Patient Yes -Correct Side, Site, Position Yes -Correct Procedure Yes -Procedure Performed Yes -Type of Procedure Debridement -Clinical Debridement Subcutaneous -Post Debridement Size (cm) - Length 17.5 -Post Debridement Size (cm) - Width 11.2 -Post Debridement Size (cm) - Depth 0.2 -Total Square Cm 196.00 -Wound/Ulcer Outcome Not Healed -Ulcer Cleansing Rinsed/ Irrigated with Saline -Foul Odor after Cleansing No -Bioengineered Tissue No -Bleeding Controlled with Pressure -Treatment Response Procedure Tolerated Well #3 RIGHT MEDIAL LE CLUSTER -Time 13:33 -Correct Patient Yes -Correct Side, Site, Position Yes -Correct Procedure Yes -Procedure Performed Yes -Type of Procedure Debridement -Clinical Debridement Subcutaneous -Post Debridement Size (cm) - Length 16 -Post Debridement Size (cm) - Width 24.1 -Post Debridement Size (cm) - Depth 0.2 -Total Square Cm 385.6 -Wound/Ulcer Outcome Not Healed -Ulcer Cleansing Rinsed/ Irrigated with Saline -Foul Odor after Cleansing No -Bioengineered Tissue No -Bleeding Controlled with Pressure -Treatment Response Procedure Tolerated Well Pain Scale: 0-10 Numeric Is Patient Pain Free? Yes Wound debrided: leg Laterality: Right Type of Debridement: Excisional debridement Anesthesia Used: 4% Lidocaine Solution Depth: in the subcutaneous layer Percentage of wound debrided: - - 75% Instrument Used: #15 blade, Forceps Tissue Removed: fibrous, devitalized subcutaneous, biofilm, slough,eschar Severity: Fat Layer Exposed Amount of bleeding with debridement: Mild Bleeding Controlled with: Pressure Patient tolerated procedure well - Additional Wound Wound debrided: leg Laterality: Left Type of Debridement: Excisional debridement Anesthesia Used: 4% Lidocaine Solution Depth: in the subcutaneous layer Percentage of wound debrided: - - 75% Instrument Used: #15 blade, Forceps Tissue Removed: fibrous, devitalized subcutaneous, biofilm, slough, eschar Severity: Fat Layer Exposed Amount of bleeding with debridement: Mild Bleeding Controlled with: Pressure Patient tolerated procedure: Patient tolerated procedure well Assessment/Plan Active Problems (Last Reviewed 12/26/17 @ 10:27 by Huang Alvarado MD) Pain in right leg (Chronic) Pain in left leg (Chronic) Delayed wound healing (Chronic) Localized edema (Chronic) Venous stasis ulcer of left lower leg with edema of left lower leg (Chronic) Venous stasis ulcer of right lower leg with edema of right lower leg (Chronic) Assessment: venous ulcers of b/l LE due to venous insufficiency. Delayed healing. venous insufficiency. Malnutrition suspected. Lower extremity pain. Differential diagnoses includes calcinosis. Multiple comorbidities noted Plan: I reviewed and discussed her case today. She is amenable for debridement her pain is recently been better controlled. Debridement was performed as noted in the clinical panel. She tolerated this well. She was advised to change her dressing every 1-2 days of hydrogel collagen. It is noted I did recommend Santyl and advanced wound care application and she is not able to financially move forward with this at this time. She defers operating room debridement and this was briefly discussed again today. She is recently in better spirits and doing well. I recommend she return next week for additional evaluation and debridement. She understands this is a more conservative approach and typically does require serial debridements in clinic even so. To wear compression Tray wrap as tolerated and to elevate the limbs at rest. To avoid idle sitting. Her previous labs were reviewed which were inconclusive ESR and CRP were elevated, HASEEB negative, Calcium WNL, PTH was low. She has wounds on other areas of her body which were not evaluated today. She will follow up with Dr. Pelaez afternoon for evaluation of her arterial Doppler exam which appeared to have distal perfusion. Continue to follow up with Dr. Carbajal as scheduled for pain management. We reviewed the basics of wound healing today. It was reiterated that her medical comorbidities do complicate her course and her treatment plan will be a staged progressive plan that is subject to change as the wound progresses and changes. To return to clinic in 1 week. She is to call if increased drainage or changes in wounds or if the patient or her has additional concerns or questions.
[2018-01-10 13:48] VITALS: BP 121/70; PULSE 107; RESP 18; TEMP 36; BMI 35.4
--- NOTE | 2018-01-10 15:40 | PN.PCM_ITS ---
(1) Ulcer of right lower extremity with fat layer exposed Status: Acute Current Visit: Yes Code(s): L97.912 - Non-pressure chronic ulcer of unspecified part of right lower leg with fat layer exposed (2) Ulcer of left lower extremity with fat layer exposed Status: Acute Current Visit: Yes Code(s): L97.922 - Non-pressure chronic ulcer of unspecified part of left lower leg with fat layer exposed (3) Venous stasis ulcer of left lower leg with edema of left lower leg Status: Chronic Current Visit: Yes Code(s): I83.892 - Varicose veins of left lower extremity with other complications; I83.028 - Varicose veins of left lower extremity with ulcer other part of lower leg; R60.9 - Edema, unspecified (4) Venous stasis ulcer of right lower leg with edema of right lower leg Status: Chronic Current Visit: Yes Code(s): I83.891 - Varicose veins of right lower extremity with other complications; I83.018 - Varicose veins of right lower extremity with ulcer other part of lower leg; R60.9 - Edema, unspecified (5) Pain in right leg Status: Chronic Current Visit: Yes Code(s): M79.604 - Pain in right leg (6) Pain in left leg Status: Chronic Current Visit: Yes Code(s): M79.605 - Pain in left leg (7) Delayed wound healing Status: Chronic Current Visit: Yes Code(s): T14.8XXD - Other injury of unspecified body region, subsequent encounter (8) Localized edema Status: Chronic Current Visit: Yes Code(s): R60.0 - Localized edema Type of Wound Date of Service: 01/11/18 Chief Complaint: Wounds/ulcers of b/l lower legs History of Wound: Di is a 72 yo female that return for follow up of bilateral leg ulcers. She has been changing the dressings every other day and denies odor or redness. Home health is helping her change the dressings. She has been applying hydrogel and states she is ready for debridement again today. She is started tapering off of prednisone. Her venous studies showed incompetent left SFJ. She will follow up with Dr. Pelaez regarding the results of this testing for possible procedure to address SFJ incompetence. She follows with Dr. Childers for cardiology and was recently seen by his nurse practitioner for routine follow up. She denies fever, chills, nausea, vomiting. She denies calf pain. She is with her today. Progress of Wound: Improving - Physical Exam Vital Signs Temp Pulse Resp BP 96.8 F L 107 H 18 121/70 H 01/10/18 13:48 01/10/18 13:48 01/10/18 13:48 01/10/18 13:48 General: Alert, Oriented x3, Cooperative Extremities: No cyanosis, Capillary Refill Less than 3 Seconds, No Calf Tenderness - Negative Kimberly and [place] bilateral, Diminished Peripheral Pulses, Edema Skin: Ulcer/ Wound - No purulence, no erythema, streaking, no odor, no acute infection bilateral lower extremities. The wounds have decreased eschar noted and there is continued fibrous tissue with increased anterior mixed granulation tissue. Most of the eschar is noted to the posterior wound on the legs suggesting continued pressure to the sites, - - The skin is atrophic and hairless bilateral lower extremities Wound Measurements and Assessment WC - Nurse 1 - General Ulcer Measurement Start: 01/03/18 12:41 Freq: Status: Active Protocol: Activity Type Activity Date Activity User E-Sign Co-Sign Detail Recorded Client Recorded Date Recorded By Document 01/10/18 13:48 [id number] 01/10/18 13:59 01/10/18 13:48 Wound Center Nurse 1 [Ulcer Assessment] #4 Left calf -Combined with other wound No -Current Size (cm) - Length 11.0 -Current Size (cm) - Width 11.0 -Current Size (cm) - Depth 0.2 -Total Square Cm 121.00 -Photo Taken No -Epithelialization None Present -Tunneling No -Undermining/Tunneling No -Circular Undermining No -Exudate Amt Medium (34-66%) -Exudate Type Serosanguineous -Wound Margin Flat & Intact -Granulation Amt Small (1-33%) -Granulation Quality [place] -Slough/Fibrin Yes -Necrosis Amt Large (67-100%) -Necrotic Tissue Type Adherent Slough -Structure Exposed N/A -Texture (Gabriella-wound Skin Appearance) Assessed -Moisture (Gabriella-wound Skin Appearance Assessed ) Dry/Scaly -Color (Gabriella-wound Skin Appearance) Assessed Hemosiderin Staining -Temperature (Gabriella-wound Skin No Abnormality Appearance) (Pt Warm) -Tenderness on Palpation (Gabriella-wound No Skin Appearance) -Ulcer Cleansing Rinsed/ Irrigated with Saline -Foul Odor after Cleansing No -Anesthetic Used 4% Lidocaine Solution #3 RIGHT MEDIAL LE CLUSTER -Combined with other wound No -Current Size (cm) - Length 11.5 -Current Size (cm) - Width 21.0 -Current Size (cm) - Depth 0.1 -Total Square Cm 241.50 -Photo Taken No -Epithelialization Small 1-33% -Tunneling No -Undermining/Tunneling No -Circular Undermining No -Exudate Amt Medium (34-66%) -Exudate Type Serosanguineous -Wound Margin Flat & Intact -Granulation Amt Small (1-33%) -Granulation Quality [place] -Slough/Fibrin Yes -Necrosis Amt Large (67-100%) -Necrotic Tissue Type Adherent Slough -Structure Exposed N/A -Texture (Gabriella-wound Skin Appearance) Assessed Localized Edema -Moisture (Gabriella-wound Skin Appearance Assessed ) Dry/Scaly -Color (Gabriella-wound Skin Appearance) Assessed Hemosiderin Staining -Temperature (Gabriella-wound Skin No Abnormality Appearance) (Pt Warm) -Tenderness on Palpation (Gabriella-wound No Skin Appearance) -Ulcer Cleansing Rinsed/ Irrigated with Saline -Foul Odor after Cleansing No -Anesthetic Used 4% Lidocaine Solution [Edema Assessment] -Lower Limb Edema Present Yes -Right Calf (cm) 31.5 -Right Ankle (cm) 20.6 -Left Calf (cm) 32.8 -Left Ankle (cm) 20.7 WC - Nurse 2 - General Ulcer CM Notes Start: 01/03/18 12:41 Freq: Status: Active Protocol: Activity Type Activity Date Activity User E-Sign Co-Sign Detail Recorded Client Recorded Date Recorded By Document 01/10/18 14:08 [id number] 01/10/18 14:17 01/10/18 14:08 Wound Center Nurse 2 [Procedure/Treatment] #4 Left calf -Time 14:10 -Correct Patient Yes -Correct Side, Site, Position Yes -Correct Procedure Yes -Procedure Performed Yes -Type of Procedure Debridement -Clinical Debridement Subcutaneous -Post Debridement Size (cm) - Length 11.6 -Post Debridement Size (cm) - Width 21.1 -Post Debridement Size (cm) - Depth 0.1 -Total Square Cm 244.76 -Wound/Ulcer Outcome Not Healed -Ulcer Cleansing Rinsed/ Irrigated with Saline -Foul Odor after Cleansing No -Bioengineered Tissue No -Topical Lidocaine (%) 4 -Bleeding Controlled with Pressure -Treatment Response Procedure Tolerated Well #3 RIGHT MEDIAL LE CLUSTER -Time 14:10 -Correct Patient Yes -Correct Side, Site, Position Yes -Correct Procedure Yes -Procedure Performed Yes -Type of Procedure Debridement -Clinical Debridement Subcutaneous -Post Debridement Size (cm) - Length 11.1 -Post Debridement Size (cm) - Width 11.1 -Post Debridement Size (cm) - Depth 0.2 -Total Square Cm 123.21 -Wound/Ulcer Outcome Not Healed -Ulcer Cleansing Rinsed/ Irrigated with Saline -Foul Odor after Cleansing No -Bioengineered Tissue No -Topical Lidocaine (%) 4 -Bleeding Controlled with Pressure -Treatment Response Procedure Tolerated Well [See Physician Procedure note for Specifics] Pain Scale: 0-10 Numeric [Pain] -Is Patient Pain Free? Yes Musculoskeletal: No Tenderness to Palpation of Joints or Extremities, Muscle Wasting, Tenderness - Manipulation of the wound causes pain bilateral Neurological: Sensory exam intact to light touch and pain, - Psych/Mental Status: Normal Affect, Appropriate Debridement Note Post-Debridement Measurements/Treatment WC - Nurse 2 - General Ulcer CM Notes Start: 01/03/18 12:41 Freq: Status: Active Protocol: Activity Type Activity Date Activity User E-Sign Co-Sign Detail Recorded Client Recorded Date Recorded By Document 01/03/18 13:32 [id number] 01/03/18 13:48 Document 01/10/18 14:08 [id number] 01/10/18 14:17 01/03/18 01/10/18 13:32 14:08 Wound Center Nurse 2 #4 Left calf -Time 13:48 14:10 -Correct Patient Yes Yes -Correct Side, Site, Position Yes Yes -Correct Procedure Yes Yes -Procedure Performed Yes Yes -Type of Procedure Debridement Debridement -Clinical Debridement Subcutaneous Subcutaneous -Post Debridement Size (cm) - Length 17.5 11.6 -Post Debridement Size (cm) - Width 11.2 21.1 -Post Debridement Size (cm) - Depth 0.2 0.1 -Total Square Cm 196.00 244.76 -Wound/Ulcer Outcome Not Healed Not Healed -Ulcer Cleansing Rinsed/ Rinsed/ Irrigated with Irrigated with Saline Saline -Foul Odor after Cleansing No No -Bioengineered Tissue No No -Topical Lidocaine (%) 4 -Bleeding Controlled with Pressure Pressure -Other only 75% of ulcer was debrided by Dr Dee. -Treatment Response Procedure Procedure Tolerated Well Tolerated Well #3 RIGHT MEDIAL LE CLUSTER -Time 13:33 14:10 -Correct Patient Yes Yes -Correct Side, Site, Position Yes Yes -Correct Procedure Yes Yes -Procedure Performed Yes Yes -Type of Procedure Debridement Debridement -Clinical Debridement Subcutaneous Subcutaneous -Post Debridement Size (cm) - Length 16 11.1 -Post Debridement Size (cm) - Width 24.1 11.1 -Post Debridement Size (cm) - Depth 0.2 0.2 -Total Square Cm 385.6 123.21 -Wound/Ulcer Outcome Not Healed Not Healed -Ulcer Cleansing Rinsed/ Rinsed/ Irrigated with Irrigated with Saline Saline -Foul Odor after Cleansing No No -Bioengineered Tissue No No -Topical Lidocaine (%) 4 -Bleeding Controlled with Pressure Pressure -Other only 75% of ulcer was debrided by Dr Dee. -Treatment Response Procedure Procedure Tolerated Well Tolerated Well Pain Scale: 0-10 Numeric Is Patient Pain Free? Yes Yes Wound debrided: leg cluster Laterality: Right Type of Debridement: Excisional debridement Anesthesia Used: 4% Lidocaine Solution Depth: in the subcutaneous layer Percentage of wound debrided: 50 Instrument Used: #15 blade, Forceps Tissue Removed: fibrous, devitalized subcutaneous, biofilm, slough, eschar Severity: Fat Layer Exposed Amount of bleeding with debridement: Mild Bleeding Controlled with: Pressure Patient tolerated procedure well - Additional Wound Wound debrided: leg cluster Laterality: Left Type of Debridement: Excisional debridement Anesthesia Used: 4% Lidocaine Solution Depth: in the subcutaneous layer Percentage of wound debrided: 100 Instrument Used: #15 blade, Forceps Tissue Removed: fibrous, devitalized subcutaneous, biofilm, slough, eschar Severity: Fat Layer Exposed Amount of bleeding with debridement: Mild Bleeding Controlled with: Pressure Patient tolerated procedure: Patient tolerated procedure well Assessment/Plan Active Problems (Last Reviewed 12/26/17 @ 10:27 by Huang Alvarado MD) Ulcer of left lower extremity with fat layer exposed (Acute) Ulcer of right lower extremity with fat layer exposed (Acute) Pain in right leg (Chronic) Pain in left leg (Chronic) Delayed wound healing (Chronic) Localized edema (Chronic) Venous stasis ulcer of left lower leg with edema of left lower leg (Chronic) Venous stasis ulcer of right lower leg with edema of right lower leg (Chronic) Assessment: venous ulcers of b/l LE due to venous insufficiency. Delayed healing. venous insufficiency. Malnutrition suspected. Lower extremity pain. Differential diagnoses includes calcinosis. Multiple comorbidities noted Plan: I reviewed and discussed her case today. She is amenable for debridement her pain is recently been better controlled. Debridement was performed as noted in the clinical panel. She tolerated this well. She was advised to change her dressing every 1-2 days of hydrogel collagen to keep all of the sites moist. It is noted I did recommend Santyl and advanced wound care application and she is not able to financially move forward with this at this time. She defers operating room debridement. I recommend she return next week for additional evaluation and debridement. She understands this is a more conservative approach and typically does require serial debridements in clinic even so. To wear compression. She a follow up with Dr. Pelaez afternoon for evaluation of her arterial Doppler exam which appeared to have distal perfusion. Continue to follow up with Dr. Carbajal as scheduled for pain management. We reviewed the basics of wound healing today. It was reiterated that her medical comorbidities do complicate her course and her treatment plan will be a staged progressive plan that is subject to change as the wound progresses and changes. I reiterated the importance of taking pressure off of these wound sites. This can be accomplished with continued light compression therapy as tolerated and also propping her leg on pillows proximally and at the heel level so there is no pressure touching the back of her legs where her devitalized wounds persist. She demonstrates understanding. To return to clinic in 1 week. She is to call if increased drainage or changes in wounds or if the patient or her has additional concerns or questions.
[2018-01-17 13:27] VITALS: BP 119/73; PULSE 100; RESP 18; TEMP 36.4; BMI 35.4
--- NOTE | 2018-01-17 14:56 | PCM.WC.PN ---
(1) Ulcer of right lower extremity with fat layer exposed Status: Acute Current Visit: Yes Code(s): L97.912 - Non-pressure chronic ulcer of unspecified part of right lower leg with fat layer exposed (2) Ulcer of left lower extremity with fat layer exposed Status: Acute Current Visit: Yes Code(s): L97.922 - Non-pressure chronic ulcer of unspecified part of left lower leg with fat layer exposed (3) Venous stasis ulcer of left lower leg with edema of left lower leg Status: Chronic Current Visit: Yes Code(s): I83.892 - Varicose veins of left lower extremity with other complications; I83.028 - Varicose veins of left lower extremity with ulcer other part of lower leg; R60.9 - Edema, unspecified (4) Venous stasis ulcer of right lower leg with edema of right lower leg Status: Chronic Current Visit: Yes Code(s): I83.891 - Varicose veins of right lower extremity with other complications; I83.018 - Varicose veins of right lower extremity with ulcer other part of lower leg; R60.9 - Edema, unspecified (5) Pain in right leg Status: Chronic Current Visit: Yes Code(s): M79.604 - Pain in right leg (6) Pain in left leg Status: Chronic Current Visit: Yes Code(s): M79.605 - Pain in left leg (7) Delayed wound healing Status: Chronic Current Visit: Yes Code(s): T14.8XXD - Other injury of unspecified body region, subsequent encounter (8) Localized edema Status: Chronic Current Visit: Yes Code(s): R60.0 - Localized edema Type of Wound Date of Service: 01/19/18 Chief Complaint: Wounds/ulcers of b/l lower legs History of Wound: Di is a 72 yo female that return for follow up of bilateral leg ulcers. She has been changing the dressings every other day and denies odor or redness. Home health is helping her change the dressings. She has been applying hydrogel and states she is ready for debridement again today. She is continuing to taper off of prednisone. Her venous studies showed incompetent left SFJ. She will follow up with Dr. Pelaez regarding the results of this testing for possible procedure to address SFJ incompetence. She follows with Dr. Childers for cardiology and was recently seen by his nurse practitioner for routine follow up. She denies fever, chills, nausea, vomiting. She denies calf pain. She is with her today. 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 Progress of Wound: Improving - Physical Exam Vital Signs Temp Pulse Resp BP 97.5 F L 100 18 119/73 01/17/18 13:27 01/17/18 13:27 01/17/18 13:27 01/17/18 13:27 General: Alert, Oriented x3, Cooperative Extremities: No cyanosis, Capillary Refill Less than 3 Seconds, No Calf Tenderness - Negative Kimberly and Layton sign bilateral, Diminished Peripheral Pulses, Edema Skin: Ulcer/ Wound - No purulence, no erythema, streaking, no odor, no infection bilateral lower extremities. There is decreased eschar formation in most of the this seems to be at the posterior leg aspect and there is concern of pressure while sitting or laying down. There is no deep tissue exposed Wound Measurements and Assessment WC - Nurse 1 - General Ulcer Measurement Start: 01/03/18 12:41 Freq: Status: Active Protocol: Activity Type Activity Date Activity User E-Sign Co-Sign Detail Recorded Client Recorded Date Recorded By Document 01/17/18 13:27 RB [id number] 01/17/18 13:50 RB 01/17/18 13:27 Wound Center Nurse 1 [Ulcer Assessment] #4 Left calf -Combined with other wound No -Current Size (cm) - Length 11 -Current Size (cm) - Width 12 -Current Size (cm) - Depth 0.2 -Total Square Cm 132 -Tunneling No -Circular Undermining No -Classification - Thickness Full Thickness without Exposed Support Structure -Exudate Amt Small (1-33%) -Exudate Type Serosanguineous -Wound Margin Thickened & Rolled Under -Granulation Amt Small (1-33%) -Granulation Quality [place] -Slough/Fibrin Yes -Necrosis Amt Large (67-100%) -Necrotic Tissue Type Adherent Slough -Structure Exposed N/A -Texture (Gabriella-wound Skin Appearance) Assessed -Color (Gabriella-wound Skin Appearance) Assessed Erythema -Temperature (Gabriella-wound Skin No Abnormality Appearance) (Pt Warm) -Tenderness on Palpation (Gabriella-wound No Skin Appearance) -Ulcer Cleansing Wound Cleanser -Foul Odor after Cleansing No -Anesthetic Used 4% Lidocaine Solution #3 RIGHT MEDIAL LE CLUSTER -Combined with other wound No -Current Size (cm) - Length 23.5 -Current Size (cm) - Width 15.5 -Current Size (cm) - Depth 0.2 -Total Square Cm 364.25 -Photo Taken No -Tunneling No -Undermining/Tunneling No -Circular Undermining No -Classification - Thickness Full Thickness without Exposed Support Structure -Exudate Amt Medium (34-66%) -Exudate Type Serosanguineous -Wound Margin Distinct, Outline Attached -Granulation Amt Small (1-33%) -Granulation Quality [place] -Necrosis Amt Large (67-100%) -Necrotic Tissue Type Adherent Slough -Structure Exposed N/A -Texture (Gabriella-wound Skin Appearance) Assessed -Moisture (Gabriella-wound Skin Appearance Assessed ) -Color (Gabriella-wound Skin Appearance) Erythema -Temperature (Gabriella-wound Skin No Abnormality Appearance) (Pt Warm) -Tenderness on Palpation (Gabriella-wound No Skin Appearance) -Ulcer Cleansing Wound Cleanser -Foul Odor after Cleansing No -Anesthetic Used 4% Lidocaine Solution [Edema Assessment] -Right Calf (cm) 34 -Right Ankle (cm) 25.2 -Left Calf (cm) 35.5 -Left Ankle (cm) 21.8 WC - Nurse 2 - General Ulcer CM Notes Start: 01/03/18 12:41 Freq: Status: Active Protocol: Activity Type Activity Date Activity User E-Sign Co-Sign Detail Recorded Client Recorded Date Recorded By Document 01/17/18 13:58 [id number] 01/17/18 14:11 01/17/18 13:58 Wound Center Nurse 2 [Procedure/Treatment] #4 Left calf -Time 13:59 -Correct Patient Yes -Correct Side, Site, Position Yes -Correct Procedure Yes -Procedure Performed Yes -Type of Procedure Debridement -Clinical Debridement Subcutaneous -Post Debridement Size (cm) - Length 11.1 -Post Debridement Size (cm) - Width 12.1 -Post Debridement Size (cm) - Depth 0.2 -Total Square Cm 134.31 -Wound/Ulcer Outcome Not Healed -Ulcer Cleansing Rinsed/ Irrigated with Saline -Foul Odor after Cleansing No -Bioengineered Tissue No -Topical Lidocaine (%) 4 -Bleeding Controlled with Pressure -Treatment Response Procedure Tolerated Well #3 RIGHT MEDIAL LE CLUSTER -Time 14:00 -Correct Patient Yes -Correct Side, Site, Position Yes -Correct Procedure Yes -Procedure Performed Yes -Type of Procedure Debridement -Clinical Debridement Subcutaneous -Post Debridement Size (cm) - Length 23.6 -Post Debridement Size (cm) - Width 15.6 -Post Debridement Size (cm) - Depth 0.2 -Total Square Cm 368.16 -Wound/Ulcer Outcome Not Healed -Ulcer Cleansing Rinsed/ Irrigated with Saline -Foul Odor after Cleansing No -Bioengineered Tissue No -Topical Lidocaine (%) 4 -Bleeding Controlled with Pressure -Treatment Response Procedure Tolerated Well [See Physician Procedure note for Specifics] Pain Scale: 0-10 Numeric [Pain] -Is Patient Pain Free? Yes Debridement Note Post-Debridement Measurements/Treatment WC - Nurse 2 - General Ulcer CM Notes Start: 01/03/18 12:41 Freq: Status: Active Protocol: Activity Type Activity Date Activity User E-Sign Co-Sign Detail Recorded Client Recorded Date Recorded By Document 01/03/18 13:32 [id number] 01/03/18 13:48 Document 01/10/18 14:08 [id number] 01/10/18 14:17 Document 01/17/18 13:58 [id number] 01/17/18 14:11 01/03/18 01/10/18 01/17/18 13:32 14:08 13:58 Wound Center Nurse 2 #4 Left calf -Time 13:48 14:10 13:59 -Correct Patient Yes Yes Yes -Correct Side, Site, Position Yes Yes Yes -Correct Procedure Yes Yes Yes -Procedure Performed Yes Yes Yes -Type of Procedure Debridement Debridement Debridement -Clinical Debridement Subcutaneous Subcutaneous Subcutaneous -Post Debridement Size (cm) - Length 17.5 11.6 11.1 -Post Debridement Size (cm) - Width 11.2 21.1 12.1 -Post Debridement Size (cm) - Depth 0.2 0.1 0.2 -Total Square Cm 196.00 244.76 134.31 -Wound/Ulcer Outcome Not Healed Not Healed Not Healed -Ulcer Cleansing Rinsed/ Rinsed/ Rinsed/ Irrigated with Irrigated with Irrigated with Saline Saline Saline -Foul Odor after Cleansing No No No -Bioengineered Tissue No No No -Topical Lidocaine (%) 4 4 -Bleeding Controlled with Pressure Pressure Pressure -Other only 75% of ulcer was debrided by Dr Dee. -Treatment Response Procedure Procedure Procedure Tolerated Well Tolerated Well Tolerated Well #3 RIGHT MEDIAL LE CLUSTER -Time 13:33 14:10 14:00 -Correct Patient Yes Yes Yes -Correct Side, Site, Position Yes Yes Yes -Correct Procedure Yes Yes Yes -Procedure Performed Yes Yes Yes -Type of Procedure Debridement Debridement Debridement -Clinical Debridement Subcutaneous Subcutaneous Subcutaneous -Post Debridement Size (cm) - Length 16 11.1 23.6 -Post Debridement Size (cm) - Width 24.1 11.1 15.6 -Post Debridement Size (cm) - Depth 0.2 0.2 0.2 -Total Square Cm 385.6 123.21 368.16 -Wound/Ulcer Outcome Not Healed Not Healed Not Healed -Ulcer Cleansing Rinsed/ Rinsed/ Rinsed/ Irrigated with Irrigated with Irrigated with Saline Saline Saline -Foul Odor after Cleansing No No No -Bioengineered Tissue No No No -Topical Lidocaine (%) 4 4 -Bleeding Controlled with Pressure Pressure Pressure -Other only 75% of ulcer was debrided by Dr Dee. -Treatment Response Procedure Procedure Procedure Tolerated Well Tolerated Well Tolerated Well Pain Scale: 0-10 Numeric Is Patient Pain Free? Yes Yes Yes Wound debrided: leg Laterality: Right Type of Debridement: Excisional debridement Anesthesia Used: 4% Lidocaine Solution Depth: in the subcutaneous layer Percentage of wound debrided: 70 Instrument Used: #15 blade, Forceps Tissue Removed: fibrous, devitalized subcutaneous, biofilm, slough, eschar Severity: Fat Layer Exposed Amount of bleeding with debridement: Mild Bleeding Controlled with: Pressure Patient tolerated procedure well - Additional Wound Wound debrided: leg Laterality: Left Type of Debridement: Excisional debridement Anesthesia Used: 4% Lidocaine Solution Depth: in the subcutaneous layer Percentage of wound debrided: 70 Instrument Used: #15 blade, Forceps Tissue Removed: fibrous, devitalized subcutaneous, biofilm, slough, eschar Severity: Fat Layer Exposed Amount of bleeding with debridement: Mild Bleeding Controlled with: Pressure Patient tolerated procedure: Patient tolerated procedure well Assessment/Plan Active Problems (Last Reviewed 12/26/17 @ 10:27 by Huang Alvarado MD) Ulcer of left lower extremity with fat layer exposed (Acute) Ulcer of right lower extremity with fat layer exposed (Acute) Pain in right leg (Chronic) Pain in left leg (Chronic) Delayed wound healing (Chronic) Localized edema (Chronic) Venous stasis ulcer of left lower leg with edema of left lower leg (Chronic) Venous stasis ulcer of right lower leg with edema of right lower leg (Chronic) Assessment: venous ulcers of b/l LE due to venous insufficiency. Delayed healing. venous insufficiency. Malnutrition suspected. Lower extremity pain. Differential diagnoses includes calcinosis. Multiple comorbidities noted. Calciphylaxis Plan: I reviewed and discussed her case today. She is amenable for debridement her pain is recently been better controlled. Debridement was performed as noted in the clinical panel. She tolerated this well. She was advised to change her dressing every 1-2 days of hydrogel collagen to keep all of the sites moist. It is noted I did recommend Santyl and advanced wound care application and she is not able to financially move forward with this at this time. She defers operating room debridement. I recommend she return next week for additional evaluation and debridement. She understands this is a more conservative approach and typically does require serial debridements in clinic even so. To wear compression. She a follow up with Dr. Pelaez afternoon for evaluation of her arterial Doppler exam which appeared to have distal perfusion. Continue to follow up with Dr. Carbajal as scheduled for pain management and dermatology as advised. We reviewed the basics of wound healing today. It was reiterated that her medical comorbidities do complicate her course and her treatment plan will be a staged progressive plan that is subject to change as the wound progresses and changes. I reiterated the importance of taking pressure off of these wound sites. This can be accomplished with continued light compression therapy as tolerated and also propping her leg on pillows proximally and at the heel level so there is no pressure touching the back of her legs where her devitalized wounds persist. She demonstrates understanding. To return to clinic in 1 week. She is to call if increased drainage or changes in wounds or if the patient or her has additional concerns or questions.
== END 2018-01-22 23:59 ==
LOC: WC 15:30
PROVIDERS: Family Provider Internal Medicine; PCP Internal Medicine; Visit Provider Podiatrist
DX: I83.028 Varicose veins of left lower extremity with ulcer other part of lower leg (principal); I83.018 Varicose veins of right lower extremity with ulcer other part of lower leg; M79.604 Pain in right leg; M79.605 Pain in left leg; R60.0 Localized edema; L97.822 Non-pressure chronic ulcer of other part of left lower leg with fat layer exposed; L97.812 Non-pressure chronic ulcer of other part of right lower leg with fat layer exposed; E83.59 Other disorders of calcium metabolism
CPT/HCPCS: 11042; 11045

== ENCOUNTER → 2018-01-31 14:40 | Outpatient (CLI) | payer MEDICARE, SELFPAY ==
[2018-01-31 17:20] LABS: Albumin, Serum 2.7 g/dL (3.2-5.0); BUN 23 mg/dL (7-18); BUN/Creat Ratio 20.4 RATIO (10-20); Calcium,Total 8.7 mg/dL (8.5-10.1); Chloride 105 mmol/L (98-107); Creatinine, Serum 1.13 mg/dL (0.55-1.02); EST Glomerular Filtration Rate 50 mL/min (>60); Est Glom Filt Rate - Afr Amer 61 mL/min (>60); Glucose 135 mg/dL (74-106); Phosphorus 2.5 mg/dL (2.5-4.9); Sodium Level 141 mmol/L (136-145)
[2018-01-31 17:42] LABS: Vitamin D,25 Hydroxy 27.6 ng/mL (29.95-100.01)
[2018-02-05 14:52] LABS: Vitamin D 1,25-Dihydroxy 37.3 pg/mL (19.9-79.3)
== END ==
PROVIDERS: Family Provider Internal Medicine; PCP Internal Medicine; Visit Provider Internal Medicine Nephrology
DX: E55.9 Vitamin D deficiency, unspecified (principal); N17.9 Acute kidney failure, unspecified
CPT/HCPCS: 36415; 80069; 82306; 82652

== ENCOUNTER 2018-02-01 14:15 | Outpatient (RCR) | payer MEDICARE, SELFPAY ==
[2018-01-24 14:01] VITALS: BP 106/57; PULSE 100; RESP 18; TEMP 36.6
--- NOTE | 2018-01-24 14:21 | WC ---
pt states she visited pranav grimes dermotologist and bioposy taken last monday.
--- NOTE | 2018-01-24 16:41 | PN.PCM_ITS ---
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 Current Visit: Yes Code(s): E83.59 - Other disorders of calcium metabolism (4) Pain in right leg Status: Chronic Current Visit: Yes Code(s): M79.604 - Pain in right leg (5) Pain in left leg Status: Chronic Current Visit: Yes Code(s): M79.605 - Pain in left leg (6) Delayed wound healing Status: Chronic Current Visit: Yes Code(s): T14.8XXD - Other injury of unspecified body region, subsequent encounter (7) Localized edema Status: Chronic Current Visit: Yes Code(s): R60.0 - Localized edema (8) Chronic kidney disease Status: Chronic Current Visit: Yes Qualifiers: Chronic kidney disease stage: stage 3 (moderate) Qualified Code(s): N18.3 - Chronic kidney disease, stage 3 (moderate) Code(s): N18.9 - Chronic kidney disease, unspecified (9) Type 2 diabetes mellitus Status: Chronic Current Visit: Yes Qualifiers: Code(s): E11.9 - Type 2 diabetes mellitus without complications (10) Venous stasis ulcer of left lower leg with edema of left lower leg Status: Chronic Current Visit: Yes Code(s): I83.892 - Varicose veins of left lower extremity with other complications; I83.028 - Varicose veins of left lower extremity with ulcer other part of lower leg; R60.9 - Edema, unspecified (11) Venous stasis ulcer of right lower leg with edema of right lower leg Status: Chronic Current Visit: Yes Code(s): I83.891 - Varicose veins of right lower extremity with other complications; I83.018 - Varicose veins of right lower extremity with ulcer other part of lower leg; R60.9 - Edema, unspecified Type of Wound Date of Service: 01/25/18 Chief Complaint: Wounds/ulcers of b/l lower legs History of Wound: Di is a 72 yo female that return for follow up of bilateral leg ulcers. She has been changing the dressings every other day and denies odor or redness. Home health is helping her change the dressings. She has been applying hydrogel and states she is ready for debridement again today. She has tapered off of prednisone. Her venous studies showed incompetent left SFJ. She will follow up with Dr. Pelaze regarding the results of this testing for possible procedure to address SFJ incompetence. She denies fever, chills, nausea, vomiting. She denies calf pain. She is with her today. 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 She had a biopsy of her legs skin to confirm this diagnosis and is interested in a nephrology referral to further treat this medically. She has been improving her offloading by avoiding direct pressure to the back of her legs. Progress of Wound: Improving - Physical Exam Vital Signs Temp Pulse Resp BP 98 F 100 18 106/57 L 01/24/18 14:01/24/18 14:01/24/18 14:01/24/18 14:01 General: Alert, Oriented x3, Cooperative Extremities: No cyanosis, Capillary Refill Less than 3 Seconds, No Calf Tenderness - Negative Kimberly and Layton sign bilateral, Diminished Peripheral Pulses, Edema Skin: Ulcer/ Wound - No purulence, no erythema, streaking, odor, oral her skin is atrophic and hairless. There is very scant eschar adhered tissue, mainly fibrous tissue, and new islands of pink healthy granulation tissue to bilateral legs. There is no exposed deep tissue Wound Measurements and Assessment WC - Nurse 1 - General Ulcer Measurement Start: 01/24/18 14:01 Freq: Status: Active Protocol: Activity Type Activity Date Activity User E-Sign Co-Sign Detail Recorded Client Recorded Date Recorded By Document 01/24/18 14: AMADA [id number] 01/24/18 14:22 RB 01/24/18 14:01 Wound Center Nurse 1 [Ulcer Assessment] #4 Left calf -Combined with other wound No -Current Size (cm) - Length 11 -Current Size (cm) - Width 11.2 -Current Size (cm) - Depth 0.2 -Total Square Cm 123.2 -Photo Taken No -Epithelialization Small 1-33% -Tunneling No -Undermining/Tunneling No -Circular Undermining No -Classification - Thickness Full Thickness without Exposed Support Structure -Exudate Amt Medium (34-66%) -Exudate Type Serosanguineous -Wound Margin Thickened & Rolled Under -Granulation Amt Large (67-100%) -Granulation Quality [place] -Slough/Fibrin Yes -Necrosis Amt Small (1-33%) -Necrotic Tissue Type Eschar -Structure Exposed N/A -Texture (Gabriella-wound Skin Appearance) Assessed Friable -Moisture (Gabriella-wound Skin Appearance Assessed ) -Color (Gabriella-wound Skin Appearance) Assessed Erythema -Temperature (Gabriella-wound Skin No Abnormality Appearance) (Pt Warm) -Tenderness on Palpation (Gabriella-wound No Skin Appearance) -Ulcer Cleansing Wound Cleanser -Anesthetic Used 4% Lidocaine Solution #3 RIGHT MEDIAL LE CLUSTER -Combined with other wound No -Current Size (cm) - Length 24 -Current Size (cm) - Width 15 -Current Size (cm) - Depth 0.3 -Total Square Cm 360 -Photo Taken No -Epithelialization Small 1-33% -Tunneling No -Undermining/Tunneling No -Circular Undermining No -Classification - Thickness Full Thickness without Exposed Support Structure -Exudate Amt Small (1-33%) -Exudate Type Serosanguineous -Wound Margin Distinct, Outline Attached -Granulation Amt Medium (34-66%) -Granulation Quality [place] -Slough/Fibrin Yes -Necrosis Amt Small (1-33%) -Necrotic Tissue Type Eschar -Structure Exposed N/A -Texture (Gabriella-wound Skin Appearance) Assessed Friable -Moisture (Gabriella-wound Skin Appearance Assessed ) -Color (Gabriella-wound Skin Appearance) Erythema -Temperature (Gabriella-wound Skin No Abnormality Appearance) (Pt Warm) -Tenderness on Palpation (Gabriella-wound No Skin Appearance) -Ulcer Cleansing Wound Cleanser -Foul Odor after Cleansing No -Anesthetic Used 4% Lidocaine Solution [Edema Assessment] -Right Calf (cm) 36.5 -Right Ankle (cm) 22 -Left Ankle (cm) 33 -Left Foot (cm) 21 01/24/18 14:21 Wound Center by Jeannie García pt states she visited [facility] dermotologist and bioposy taken last monday. Initialized on 01/24/18 14:21 - END OF NOTE WC - Nurse 2 - General Ulcer CM Notes Start: 01/24/18 14:01 Freq: Status: Active Protocol: Activity Type Activity Date Activity User E-Sign Co-Sign Detail Recorded Client Recorded Date Recorded By Document 01/24/18 15:16 [id number] 01/24/18 15:19 01/24/18 15:16 Wound Center Nurse 2 [Procedure/Treatment] #4 Left calf -Time 15:16 -Correct Patient Yes -Correct Side, Site, Position Yes -Correct Procedure Yes -Procedure Performed Yes -Type of Procedure Debridement -Clinical Debridement Subcutaneous -Post Debridement Size (cm) - Length 11.1 -Post Debridement Size (cm) - Width 11.3 -Post Debridement Size (cm) - Depth 0.3 -Total Square Cm 125.43 -Wound/Ulcer Outcome Not Healed -Ulcer Cleansing Rinsed/ Irrigated with Saline -Foul Odor after Cleansing No -Bioengineered Tissue No -Topical Lidocaine (%) 4 -Bleeding Controlled with Pressure -Treatment Response Procedure Tolerated Well #3 RIGHT MEDIAL LE CLUSTER -Time 15:17 -Correct Patient Yes -Correct Side, Site, Position Yes -Correct Procedure Yes -Procedure Performed Yes -Type of Procedure Debridement -Clinical Debridement Subcutaneous -Post Debridement Size (cm) - Length 24.1 -Post Debridement Size (cm) - Width 15.1 -Post Debridement Size (cm) - Depth 0.2 -Total Square Cm 363.91 -Wound/Ulcer Outcome Not Healed -Ulcer Cleansing Rinsed/ Irrigated with Saline -Foul Odor after Cleansing No -Bioengineered Tissue No -Topical Lidocaine (%) 4 -Bleeding Controlled with Pressure -Treatment Response Procedure Tolerated Well [See Physician Procedure note for Specifics] Pain Scale: 0-10 Numeric [Pain] -Is Patient Pain Free? Yes Musculoskeletal: No Tenderness to Palpation of Joints or Extremities, Muscle Wasting, Tenderness - Pain with wound manipulation bilateral Neurological: Sensory exam intact to light touch and pain Psych/Mental Status: Normal Affect, Appropriate Debridement Note Post-Debridement Measurements/Treatment WC - Nurse 2 - General Ulcer CM Notes Start: 01/24/18 14:01 Freq: Status: Active Protocol: Activity Type Activity Date Activity User E-Sign Co-Sign Detail Recorded Client Recorded Date Recorded By Document 01/24/18 15:16 [email or web address] 01/24/18 15:19 01/24/18 15:16 Wound Center Nurse 2 #4 Left calf -Time 15:16 -Correct Patient Yes -Correct Side, Site, Position Yes -Correct Procedure Yes -Procedure Performed Yes -Type of Procedure Debridement -Clinical Debridement Subcutaneous -Post Debridement Size (cm) - Length 11.1 -Post Debridement Size (cm) - Width 11.3 -Post Debridement Size (cm) - Depth 0.3 -Total Square Cm 125.43 -Wound/Ulcer Outcome Not Healed -Ulcer Cleansing Rinsed/ Irrigated with Saline -Foul Odor after Cleansing No -Bioengineered Tissue No -Topical Lidocaine (%) 4 -Bleeding Controlled with Pressure -Treatment Response Procedure Tolerated Well #3 RIGHT MEDIAL LE CLUSTER -Time 15:17 -Correct Patient Yes -Correct Side, Site, Position Yes -Correct Procedure Yes -Procedure Performed Yes -Type of Procedure Debridement -Clinical Debridement Subcutaneous -Post Debridement Size (cm) - Length 24.1 -Post Debridement Size (cm) - Width 15.1 -Post Debridement Size (cm) - Depth 0.2 -Total Square Cm 363.91 -Wound/Ulcer Outcome Not Healed -Ulcer Cleansing Rinsed/ Irrigated with Saline -Foul Odor after Cleansing No -Bioengineered Tissue No -Topical Lidocaine (%) 4 -Bleeding Controlled with Pressure -Treatment Response Procedure Tolerated Well Pain Scale: 0-10 Numeric Is Patient Pain Free? Yes Wound debrided: leg Laterality: Right Type of Debridement: Excisional debridement Anesthesia Used: 4% Lidocaine Solution Depth: in the subcutaneous layer Percentage of wound debrided: 70 Instrument Used: #15 blade, Forceps Tissue Removed: fibrous, devitalized subcutaneous, biofilm, slough Severity: Fat Layer Exposed Amount of bleeding with debridement: Mild Bleeding Controlled with: Pressure Patient tolerated procedure well - Additional Wound Wound debrided: leg Laterality: Left Type of Debridement: Excisional debridement Anesthesia Used: 4% Lidocaine Solution Depth: in the subcutaneous layer Percentage of wound debrided: 70 Instrument Used: #15 blade, Forceps Tissue Removed: fibrous, devitalized subcutaneous, biofilm, slough Severity: Fat Layer Exposed Amount of bleeding with debridement: Mild Bleeding Controlled with: Pressure Patient tolerated procedure: Patient tolerated procedure well Assessment/Plan Active Problems (Last Reviewed 12/26/17 @ 10:27 by Huang Alvarado MD) Ulcer of left lower extremity with fat layer exposed (Chronic) Ulcer of right lower extremity with fat layer exposed (Chronic) Pain in right leg (Chronic) Pain in left leg (Chronic) Delayed wound healing (Chronic) Localized edema (Chronic) Chronic kidney disease (Chronic) Type 2 diabetes mellitus (Chronic) Venous stasis ulcer of left lower leg with edema of left lower leg (Chronic) Venous stasis ulcer of right lower leg with edema of right lower leg (Chronic) Assessment: venous ulcers of b/l LE due to venous insufficiency. Delayed healing. venous insufficiency. Malnutrition suspected. Lower extremity pain. Differential diagnoses includes calciphylaxis. Multiple comorbidities noted. Calciphylaxis Plan: I reviewed and discussed her case today. She is amenable for debridement her pain is recently been better controlled. Debridement was performed as noted in the clinical panel. She tolerated this well. She was advised to change her dressing every 1-2 days of hydrogel collagen to keep all of the sites moist. It is noted I did recommend Santyl and advanced wound care application and she is not able to financially move forward with this at this time. She defers operating room debridement. I recommend she return next week for additional evaluation and debridement. She understands this is a more conservative approach and typically does require serial debridements in clinic even so. To wear compression. She a follow up with Dr. Pelaez for evaluation of her arterial Doppler exam which appeared to have distal perfusion. Continue to follow up with Dr. Carbajal as scheduled for pain management and dermatology as advised. A biopsy of the legs skin was obtained and the results are pending. I recommend a nephrology referral with Dr. Almonte and this will be conducted after her biopsy confirms her diagnosis. Her previous labs are reviewed with elevated sodium level and her phosphorus level was not abnormal. She understands further lab workup may be warranted in the future. We reviewed the basics of wound healing today. It was reiterated that her medical comorbidities do complicate her course and her treatment plan will be a staged progressive plan that is subject to change as the wound progresses and changes. I reiterated the importance of taking pressure off of these wound sites. This can be accomplished with continued light compression therapy as tolerated and also propping her leg on pillows proximally and at the heel level so there is no pressure touching the back of her legs where her devitalized wounds persist. She demonstrates understanding. To return to clinic in 1 week; Dr. Whitlock is covering. She is to call if increased drainage or changes in wounds or if the patient or her has additional concerns or questions.
[2018-02-01 14:32] VITALS: BP 112/60; PULSE 90; RESP 18; TEMP 36.1
--- NOTE | 2018-02-01 16:01 | PCM.WC.PN ---
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 Current Visit: Yes Code(s): E83.59 - Other disorders of calcium metabolism (4) Pain in right leg Status: Chronic Current Visit: Yes Code(s): M79.604 - Pain in right leg (5) Pain in left leg Status: Chronic Current Visit: Yes Code(s): M79.605 - Pain in left leg (6) Delayed wound healing Status: Chronic Current Visit: Yes Code(s): T14.8XXD - Other injury of unspecified body region, subsequent encounter (7) Localized edema Status: Chronic Current Visit: Yes Code(s): R60.0 - Localized edema Type of Wound Date of Service: 02/01/18 Chief Complaint: Wounds/ulcers of b/l lower legs History of Wound: Di is a 72 yo female that return for follow up of bilateral leg ulcers. She has been changing the dressings every other day and denies odor or redness. Home health is helping her change the dressings. She has been applying hydrogel and states she is ready for debridement again today. She has tapered off of prednisone. Her venous studies showed incompetent left SFJ. She will follow up with Dr. Pelaez regarding the results of this testing for possible procedure to address SFJ incompetence. She denies fever, chills, nausea, vomiting. She denies calf pain. She is with her today. 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 She had a biopsy of her legs skin to confirm this diagnosis and is interested in a nephrology referral to further treat this medically. She has been improving her offloading by avoiding direct pressure to the back of her legs. Progress of Wound: Improving - Physical Exam Vital Signs Temp Pulse Resp BP 97 F L 90 18 112/60 02/01/18 14:32 02/01/18 14:32 02/01/18 14:32 02/01/18 14:32 General: Alert, Oriented x3, Cooperative, No apparent distress Extremities: No cyanosis, Capillary Refill Less than 3 Seconds, No Calf Tenderness, Diminished Peripheral Pulses Skin: Ulcer/ Wound - There continues to be no purulence, no extending erythema, no streaking, no malodor. Skin appears hairless and atrophic. There are areas to the ulcers of each leg that are noted to have an adherent eschar. Majority of ulcer sites are fibrous tissue, adherent slough, and granular tissue. There is no probing, tracking or undermining appreciated. Evidence of new skin islands forming. Wound Measurements and Assessment WC - Nurse 1 - General Ulcer Measurement Start: 01/24/18 14:01 Freq: Status: Active Protocol: Activity Type Activity Date Activity User E-Sign Co-Sign Detail Recorded Client Recorded Date Recorded By Document 02/01/18 14:32 RB [id number] 02/01/18 14:53 RB 02/01/18 14:32 Wound Center Nurse 1 [Ulcer Assessment] #4 Left calf -Combined with other wound No -Current Size (cm) - Length 11.5 -Current Size (cm) - Width 11.5 -Current Size (cm) - Depth 0.3 -Total Square Cm 132.25 -Photo Taken No -Tunneling No -Undermining/Tunneling No -Circular Undermining No -Classification - Thickness Full Thickness without Exposed Support Structure -Exudate Amt Large (67-100%) -Exudate Type Serosanguineous -Wound Margin Thickened & Rolled Under -Granulation Amt Medium (34-66%) -Granulation Quality Powell -Slough/Fibrin Yes -Necrosis Amt Medium (34-66%) -Necrotic Tissue Type Adherent Slough -Structure Exposed N/A -Texture (Gabriella-wound Skin Appearance) Assessed Friable -Moisture (Gabriella-wound Skin Appearance Assessed ) -Color (Gabriella-wound Skin Appearance) Assessed -Temperature (Gabriella-wound Skin No Abnormality Appearance) (Pt Warm) -Tenderness on Palpation (Gabriella-wound No Skin Appearance) -Ulcer Cleansing Wound Cleanser -Foul Odor after Cleansing No -Anesthetic Used 5% Lidocaine Gel #3 RIGHT MEDIAL LE CLUSTER -Combined with other wound No -Current Size (cm) - Length 22.5 -Current Size (cm) - Width 14 -Current Size (cm) - Depth 0.3 -Total Square Cm 315.0 -Photo Taken No -Tunneling No -Undermining/Tunneling No -Circular Undermining No -Classification - Thickness Full Thickness without Exposed Support Structure -Exudate Amt Large (67-100%) -Exudate Type Serosanguineous -Wound Margin Thickened & Rolled Under -Granulation Amt Medium (34-66%) -Granulation Quality Powell -Slough/Fibrin Yes -Necrosis Amt Medium (34-66%) -Necrotic Tissue Type Eschar -Structure Exposed N/A -Texture (Gabriella-wound Skin Appearance) Assessed Friable -Moisture (Gabriella-wound Skin Appearance Assessed ) -Color (Gabriella-wound Skin Appearance) Assessed -Temperature (Gabriella-wound Skin No Abnormality Appearance) (Pt Warm) -Tenderness on Palpation (Gabriella-wound No Skin Appearance) -Ulcer Cleansing Wound Cleanser -Foul Odor after Cleansing No -Anesthetic Used 5% Lidocaine Gel [Edema Assessment] -Lower Limb Edema Present Yes -Right Calf (cm) 33.2 -Right Ankle (cm) 20.5 -Left Calf (cm) 32 -Left Ankle (cm) 20.5 WC - Nurse 2 - General Ulcer CM Notes Start: 01/24/18 14:01 Freq: Status: Active Protocol: Activity Type Activity Date Activity User E-Sign Co-Sign Detail Recorded Client Recorded Date Recorded By Document 02/01/18 15:04 [id number] 02/01/18 15:21 02/01/18 15:04 Wound Center Nurse 2 [Procedure/Treatment] #4 Left calf -Time 15:18 -Correct Patient Yes -Correct Side, Site, Position Yes -Correct Procedure Yes -Procedure Performed Yes -Type of Procedure Debridement -Clinical Debridement Subcutaneous -Post Debridement Size (cm) - Length 11.6 -Post Debridement Size (cm) - Width 11.6 -Post Debridement Size (cm) - Depth 0.3 -Total Square Cm 134.56 -Wound/Ulcer Outcome Not Healed -Ulcer Cleansing Rinsed/ Irrigated with Saline -Foul Odor after Cleansing No -Bioengineered Tissue No -Topical Lidocaine (%) 5 -Bleeding Controlled with Pressure -Treatment Response Procedure Tolerated Well #3 RIGHT MEDIAL LE CLUSTER -Time 15:19 -Correct Patient Yes -Correct Side, Site, Position Yes -Correct Procedure Yes -Procedure Performed Yes -Type of Procedure Debridement -Clinical Debridement Subcutaneous -Post Debridement Size (cm) - Length 22.6 -Post Debridement Size (cm) - Width 14.1 -Post Debridement Size (cm) - Depth 0.3 -Total Square Cm 318.66 -Wound/Ulcer Outcome Not Healed -Ulcer Cleansing Rinsed/ Irrigated with Saline -Foul Odor after Cleansing No -Bioengineered Tissue No -Topical Lidocaine (%) 5 -Bleeding Controlled with Pressure -Treatment Response Procedure Tolerated Well [See Physician Procedure note for Specifics] Pain Scale: 0-10 Numeric [Pain] -Is Patient Pain Free? Yes Musculoskeletal: - - Pain appreciated to palpation of each of the ulcer sites to bilateral legs Neurological: Sensory exam intact to light touch and pain Psych/Mental Status: Normal Affect, Appropriate Debridement Note Post-Debridement Measurements/Treatment WC - Nurse 2 - General Ulcer CM Notes Start: 01/24/18 14:01 Freq: Status: Active Protocol: Activity Type Activity Date Activity User E-Sign Co-Sign Detail Recorded Client Recorded Date Recorded By Document 01/24/18 15:16 [id number] 01/24/18 15:19 TM Document 02/01/18 15:04 [id number] 02/01/18 15:21 TM 01/24/18 02/01/18 15:16 15:04 Wound Center Nurse 2 #4 Left calf -Time 15:16 15:18 -Correct Patient Yes Yes -Correct Side, Site, Position Yes Yes -Correct Procedure Yes Yes -Procedure Performed Yes Yes -Type of Procedure Debridement Debridement -Clinical Debridement Subcutaneous Subcutaneous -Post Debridement Size (cm) - Length 11.1 11.6 -Post Debridement Size (cm) - Width 11.3 11.6 -Post Debridement Size (cm) - Depth 0.3 0.3 -Total Square Cm 125.43 134.56 -Wound/Ulcer Outcome Not Healed Not Healed -Ulcer Cleansing Rinsed/ Rinsed/ Irrigated with Irrigated with Saline Saline -Foul Odor after Cleansing No No -Bioengineered Tissue No No -Topical Lidocaine (%) 4 5 -Bleeding Controlled with Pressure Pressure -Treatment Response Procedure Procedure Tolerated Well Tolerated Well #3 RIGHT MEDIAL LE CLUSTER -Time 15:17 15:19 -Correct Patient Yes Yes -Correct Side, Site, Position Yes Yes -Correct Procedure Yes Yes -Procedure Performed Yes Yes -Type of Procedure Debridement Debridement -Clinical Debridement Subcutaneous Subcutaneous -Post Debridement Size (cm) - Length 24.1 22.6 -Post Debridement Size (cm) - Width 15.1 14.1 -Post Debridement Size (cm) - Depth 0.2 0.3 -Total Square Cm 363.91 318.66 -Wound/Ulcer Outcome Not Healed Not Healed -Ulcer Cleansing Rinsed/ Rinsed/ Irrigated with Irrigated with Saline Saline -Foul Odor after Cleansing No No -Bioengineered Tissue No No -Topical Lidocaine (%) 4 5 -Bleeding Controlled with Pressure Pressure -Treatment Response Procedure Procedure Tolerated Well Tolerated Well Pain Scale: 0-10 Numeric Is Patient Pain Free? Yes Yes Wound debrided: Right lower leg Laterality: Right Type of Debridement: Excisional debridement Anesthesia Used: 4% Lidocaine Solution Depth: in the subcutaneous layer Percentage of wound debrided: 70 Instrument Used: #15 blade, Forceps Tissue Removed: Fibrous tissue, devitalized subcutaneous tissue, biofilm, adherent slough Severity: Fat Layer Exposed Amount of bleeding with debridement: Mild Bleeding Controlled with: Pressure Patient tolerated procedure well - Additional Wound Wound debrided: Left lower leg Laterality: Left Type of Debridement: Excisional debridement Anesthesia Used: 4% Lidocaine Solution Depth: in the subcutaneous layer Percentage of wound debrided: 70 Instrument Used: #15 blade, Forceps Tissue Removed: Fibrous tissue, devitalized subcutaneous tissue, biofilm, adherent slough Severity: Fat Layer Exposed Amount of bleeding with debridement: Mild Bleeding Controlled with: Pressure Patient tolerated procedure: Patient tolerated procedure well Assessment/Plan Active Problems (Last Reviewed 12/26/17 @ 10:27 by Huang Alvarado MD) Ulcer of left lower extremity with fat layer exposed (Chronic) Ulcer of right lower extremity with fat layer exposed (Chronic) Pain in right leg (Chronic) Pain in left leg (Chronic) Delayed wound healing (Chronic) Localized edema (Chronic) Chronic kidney disease (Chronic) Type 2 diabetes mellitus (Chronic) Venous stasis ulcer of left lower leg with edema of left lower leg (Chronic) Venous stasis ulcer of right lower leg with edema of right lower leg (Chronic) Assessment: venous ulcers of b/l LE due to venous insufficiency. Delayed healing. venous insufficiency. Malnutrition suspected. Lower extremity pain. Differential diagnoses includes calciphylaxis. Multiple comorbidities noted. Calciphylaxis Plan: Patient was examined and evaluated today in Dr. Dee's absence. She is amenable for debridement again today. Subcutaneous debridement was performed as noted in the clinical panel. She tolerated this well. She was advised to continue to change her dressing every 1-2 days of hydrogel collagen to keep all of the sites moist. She understands this is a more conservative approach and typically does require serial debridements in clinic even so. To continue with compression. She a follow up with Dr. Pelaez for evaluation of her arterial Doppler exam which appeared to have distal perfusion. Continue to follow up with Dr. Carbajal as scheduled for pain management and dermatology as advised. A biopsy of the legs skin was obtained and the results were reviewed today and will be placed in her chart. I reiterated the importance of taking pressure off of these wound sites. She was told by her doctor to stop taking glucerna as it had too much calcium. She is also unable to take ant. She is to continue with high protein diet. She demonstrates understanding. To return to clinic in [address] Dee. She is to call if increased drainage or changes in wounds or if the patient or her has additional concerns or questions.
== END 2018-02-22 23:59 ==
LOC: WC 14:15
PROVIDERS: Family Provider Internal Medicine; PCP Internal Medicine; Visit Provider Podiatrist
DX: E11.622 Type 2 diabetes mellitus with other skin ulcer (principal); L97.822 Non-pressure chronic ulcer of other part of left lower leg with fat layer exposed; L97.812 Non-pressure chronic ulcer of other part of right lower leg with fat layer exposed; E11.22 Type 2 diabetes mellitus with diabetic chronic kidney disease; N18.3 Chronic kidney disease, stage 3 (moderate); I83.018 Varicose veins of right lower extremity with ulcer other part of lower leg; I83.028 Varicose veins of left lower extremity with ulcer other part of lower leg; M79.604 Pain in right leg; M79.605 Pain in left leg; R60.0 Localized edema

== ENCOUNTER 2018-02-21 14:00 | Outpatient (RCR) | payer MEDICARE, SELFPAY ==
[2018-01-23 00:35] VITALS: BP 120/69; PULSE 100; RESP 18; TEMP 36.4; BMI 35.4
[2018-02-07 13:34] VITALS: BP 82/38; PULSE 88; RESP 20; TEMP 36.3; BMI 35.4
--- NOTE | 2018-02-07 15:15 | PN.PCM_ITS ---
(1) Ulcer of right lower extremity with fat layer exposed Status: Chronic Current Visit: Yes Code(s): L97.912 - Non-pressure chronic ulcer of unspecified part of right lower leg with fat layer exposed (2) Ulcer of left lower extremity with fat layer exposed Status: Chronic Current Visit: Yes Code(s): L97.922 - Non-pressure chronic ulcer of unspecified part of left lower leg with fat layer exposed (3) Calciphylaxis Status: Chronic Current Visit: Yes Code(s): E83.59 - Other disorders of calcium metabolism (4) Pain in right leg Status: Chronic Current Visit: Yes Code(s): M79.604 - Pain in right leg (5) Pain in left leg Status: Chronic Current Visit: Yes Code(s): M79.605 - Pain in left leg (6) Delayed wound healing Status: Chronic Current Visit: Yes Code(s): T14.8XXD - Other injury of unspecified body region, subsequent encounter (7) Localized edema Status: Chronic Current Visit: Yes Code(s): R60.0 - Localized edema Type of Wound Date of Service: 02/08/18 Chief Complaint: Wounds/ulcers of b/l lower legs History of Wound: Di is a 72 yo female that return for follow up of bilateral leg ulcers. She has been changing the dressings every other day and denies odor or redness. Home health is helping her change the dressings. She has been applying hydrogel and states she is ready for debridement again today. She has tapered off of prednisone. She is not taking morphine for pain. Her venous studies showed incompetent left SFJ. She will follow up with Dr. Pelaez regarding the results of this testing for possible procedure to address SFJ incompetence. She denies fever, chills, nausea, vomiting. She denies calf pain. She is with her today. She was diagnosed with calciphylaxis at her recent visit to the scrum project manager. She had a biopsy of her legs skin to confirm this diagnosis and has seen award clerk, Dr. Almonte. She elected to decrease her phosphorus and calcium intake through her diet. If this is not successful I will communicate that with the award clerk who will seek intravenous treatment. She has been improving her offloading by avoiding direct pressure to the back of her legs. Progress of Wound: Improving - Physical Exam Vital Signs Temp Pulse Resp BP 97.4 F L 88 20 H 82/38 L 02/07/18 13:34 02/07/18 13:34 02/07/18 13:34 02/07/18 13:34 General: Alert, Oriented x3, Cooperative Extremities: No cyanosis, Capillary Refill Less than 3 Seconds, No Calf Tenderness - Negative Kimberly and Layton sign bilateral, Diminished Peripheral Pulses, Edema, Tenderness - Pain with wound manipulation bilateral Skin: Ulcer/ Wound - No purulence, no erythema, no infection,. There is scant eschar noted today and this is nonadherent. The skin is atrophic and hairless. There is no exposed fascia muscle or bone bilateral Wound Measurements and Assessment WC - Nurse 1 - General Ulcer Measurement Start: 02/07/18 13:33 Freq: Status: Active Protocol: Activity Type Activity Date Activity User E-Sign Co-Sign Detail Recorded Client Recorded Date Recorded By Document 02/07/18 13:34 DL [id number] 02/07/18 13:53 DL 02/07/18 13:34 Wound Center Nurse 1 [Ulcer Assessment] #4 Left calf -Current Size (cm) - Length 11.5 -Current Size (cm) - Width 5.6 -Current Size (cm) - Depth 0.4 -Total Square Cm 64.40 -Photo Taken No -Exudate Amt Medium (34-66%) -Exudate Type Serosanguineous -Wound Margin Distinct, Outline Attached -Granulation Quality Red -Necrosis Amt Medium (34-66%) -Necrotic Tissue Type Adherent Slough -Structure Exposed N/A -Texture (Gabriella-wound Skin Appearance) Scarring -Moisture (Gabriella-wound Skin Appearance No Abnormality ) -Color (Gabriella-wound Skin Appearance) Erythema Rubor -Temperature (Gabriella-wound Skin No Abnormality Appearance) (Pt Warm) -Ulcer Cleansing Wound Cleanser -Foul Odor after Cleansing No -Anesthetic Used 4% Lidocaine Solution #3 RIGHT MEDIAL LE CLUSTER -Current Size (cm) - Length 14 -Current Size (cm) - Width 23 -Current Size (cm) - Depth 0.4 -Total Square Cm 322 -Photo Taken No [Edema Assessment] -Right Calf (cm) 33.3 -Right Ankle (cm) 21 -Left Calf (cm) 30.2 -Left Ankle (cm) 20.2 WC - Nurse 2 - General Ulcer CM Notes Start: 02/07/18 13:33 Freq: Status: Active Protocol: Activity Type Activity Date Activity User E-Sign Co-Sign Detail Recorded Client Recorded Date Recorded By Document 02/07/18 14:14 [id number] 02/07/18 14:23 02/07/18 14:14 Wound Center Nurse 2 [Procedure/Treatment] #4 Left calf -Time 14:19 -Correct Patient Yes -Correct Side, Site, Position Yes -Correct Procedure Yes -Procedure Performed Yes -Type of Procedure Debridement -Clinical Debridement Subcutaneous -Post Debridement Size (cm) - Length 11.5 -Post Debridement Size (cm) - Width 5.7 -Post Debridement Size (cm) - Depth 0.4 -Total Square Cm 65.55 -Wound/Ulcer Outcome Not Healed -Ulcer Cleansing Rinsed/ Irrigated with Saline -Foul Odor after Cleansing No -Bioengineered Tissue No -Bleeding Controlled with Pressure -Treatment Response Procedure Tolerated Well #3 RIGHT MEDIAL LE CLUSTER -Time 14:14 -Correct Patient Yes -Correct Side, Site, Position Yes -Correct Procedure Yes -Procedure Performed Yes -Type of Procedure Debridement -Clinical Debridement Subcutaneous -Post Debridement Size (cm) - Length 14 -Post Debridement Size (cm) - Width 23.1 -Post Debridement Size (cm) - Depth 0.4 -Total Square Cm 323.4 -Wound/Ulcer Outcome Not Healed -Ulcer Cleansing Rinsed/ Irrigated with Saline -Foul Odor after Cleansing No -Bioengineered Tissue No -Bleeding Controlled with Pressure -Treatment Response Procedure Tolerated Well [See Physician Procedure note for Specifics] Pain Scale: 0-10 Numeric [Pain] -Is Patient Pain Free? Yes Musculoskeletal: No Tenderness to Palpation of Joints or Extremities, Muscle Wasting Neurological: Sensory exam intact to light touch and pain Psych/Mental Status: Normal Affect, Appropriate Debridement Note Post-Debridement Measurements/Treatment WC - Nurse 2 - General Ulcer CM Notes Start: 02/07/18 13:33 Freq: Status: Active Protocol: Activity Type Activity Date Activity User E-Sign Co-Sign Detail Recorded Client Recorded Date Recorded By Document 02/07/18 14:14 [id number] [id number] 02/07/18 14:23 02/07/18 14:14 Wound Center Nurse 2 #4 Left calf -Time 14:19 -Correct Patient Yes -Correct Side, Site, Position Yes -Correct Procedure Yes -Procedure Performed Yes -Type of Procedure Debridement -Clinical Debridement Subcutaneous -Post Debridement Size (cm) - Length 11.5 -Post Debridement Size (cm) - Width 5.7 -Post Debridement Size (cm) - Depth 0.4 -Total Square Cm 65.55 -Wound/Ulcer Outcome Not Healed -Ulcer Cleansing Rinsed/ Irrigated with Saline -Foul Odor after Cleansing No -Bioengineered Tissue No -Bleeding Controlled with Pressure -Treatment Response Procedure Tolerated Well #3 RIGHT MEDIAL LE CLUSTER -Time 14:14 -Correct Patient Yes -Correct Side, Site, Position Yes -Correct Procedure Yes -Procedure Performed Yes -Type of Procedure Debridement -Clinical Debridement Subcutaneous -Post Debridement Size (cm) - Length 14 -Post Debridement Size (cm) - Width 23.1 -Post Debridement Size (cm) - Depth 0.4 -Total Square Cm 323.4 -Wound/Ulcer Outcome Not Healed -Ulcer Cleansing Rinsed/ Irrigated with Saline -Foul Odor after Cleansing No -Bioengineered Tissue No -Bleeding Controlled with Pressure -Treatment Response Procedure Tolerated Well Pain Scale: 0-10 Numeric Is Patient Pain Free? Yes Wound debrided: lateral leg Laterality: Right Type of Debridement: Excisional debridement Anesthesia Used: 5% Lidocaine Gel Depth: in the subcutaneous layer Percentage of wound debrided: 100 Instrument Used: #15 blade, Forceps Tissue Removed: fibrous, devitalized subcutaneous, biofilm, slough, eschar Severity: Fat Layer Exposed Amount of bleeding with debridement: Mild Bleeding Controlled with: Pressure Patient tolerated procedure well - Additional Wound Wound debrided: medial leg Laterality: Right Type of Debridement: Excisional debridement Anesthesia Used: 5% Lidocaine Gel Depth: in the subcutaneous layer Percentage of wound debrided: 100 Instrument Used: #15 blade Tissue Removed: fibrous, devitalized subcutaneous, biofilm, slough Severity: Fat Layer Exposed Amount of bleeding with debridement: Mild Bleeding Controlled with: Pressure Patient tolerated procedure: Patient tolerated procedure well - Additional Wound Wound debrided: leg Laterality: Left Type of Debridement: Excisional debridement Anesthesia Used: 5% Lidocaine Gel Depth: in the subcutaneous layer Percentage of wound debrided: 100 Instrument Used: #15 blade, Forceps Tissue Removed: fibrous, devitalized subcutaneous, biofilm, slough Severity: Fat Layer Exposed Amount of bleeding with debridement: Mild Bleeding Controlled with: Pressure Patient tolerated procedure: Patient tolerated procedure well Assessment/Plan Active Problems (Last Reviewed 12/26/17 @ 10:27 by Huang Alvarado MD) Calciphylaxis (Chronic) Ulcer of left lower extremity with fat layer exposed (Chronic) Ulcer of right lower extremity with fat layer exposed (Chronic) Pain in right leg (Chronic) Pain in left leg (Chronic) Delayed wound healing (Chronic) Localized edema (Chronic) Assessment: venous ulcers of b/l LE due to venous insufficiency. Delayed healing. venous insufficiency. Malnutrition suspected. Lower extremity pain. Differential diagnoses includes calciphylaxis. Multiple comorbidities noted. Calciphylaxis Plan: She was evaluated today in her care plan was discussed. She is amenable for debridement again today. Subcutaneous debridement was performed as noted in the clinical panel. She tolerated this well. She was advised to continue to change her dressing every 1-2 days of hydrogel collagen to keep all of the sites moist. She understands this is a more conservative approach and typically does require serial debridements in clinic even so. To continue with compression. She a follow up with Dr. Pelaez for evaluation of her arterial Doppler exam which appeared to have distal perfusion. Continue to follow up with Dr. Carbajal as scheduled for pain management and dermatology as advised. A biopsy of the legs skin was obtained and the results were reviewed today and will be placed in her chart. I reiterated the importance of taking pressure off of these wound sites. She was told by her doctor to stop taking glucerna as it had too much calcium. She is also unable to take ant. She is to continue with high protein diet. She demonstrates understanding. To return to clinic in [address] eDe. She is to call if increased drainage or changes in wounds or if the patient or her has additional concerns or questions. I will request award clerk, Dr. Almonte's, notes and will communicate his progress with this physician to see if more aggressive therapy is needed. I would like to consider advanced wound care product application over this large wounds. She is not amenable to operating room debridement and application at that time. A preauthorization for theraskin, cryopreserved product, will be initiated for application of the wound care center. The indications application details, management were discussed. She is amenable and elects to proceed at this time. This is medically necessary for limb salvage.
[2018-02-14 14:01] VITALS: BP 104/61; PULSE 100; RESP 20; TEMP 36.6; BMI 35.4
--- NOTE | 2018-02-14 15:58 | PCM.WC.PN ---
(1) Ulcer of right lower extremity with fat layer exposed Status: Chronic Code(s): L97.912 - Non-pressure chronic ulcer of unspecified part of right lower leg with fat layer exposed (2) Ulcer of left lower extremity with fat layer exposed Status: Chronic Code(s): L97.922 - Non-pressure chronic ulcer of unspecified part of left lower leg with fat layer exposed (3) Calciphylaxis Status: Chronic Code(s): E83.59 - Other disorders of calcium metabolism (4) Pain in right leg Status: Chronic Code(s): M79.604 - Pain in right leg (5) Pain in left leg Status: Chronic Code(s): M79.605 - Pain in left leg (6) Delayed wound healing Status: Chronic Code(s): T14.8XXD - Other injury of unspecified body region, subsequent encounter (7) Localized edema Status: Chronic Code(s): R60.0 - Localized edema Type of Wound Date of Service: 02/19/18 Chief Complaint: Wounds/ulcers of b/l lower legs History of Wound: Di is a 72 year old female that returns for follow up of bilateral leg ulcers. She has been changing the dressings every other day and denies odor or redness. Home health is helping her change the dressings. She has been applying hydrogel and states she is ready for debridement again today. She has tapered off of prednisone. Her venous studies showed incompetent left SFJ. She will follow up with Dr. Pelaez regarding the results of this testing for possible procedure to address SFJ incompetence. She denies fever, chills, nausea, vomiting. She denies calf pain. She is with her today. 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 She had a biopsy of her legs skin to confirm this diagnosis and has seen storage battery inspector, Dr. Almonte. She elected to decrease her phosphorus and calcium intake through her diet. If this is not successful I will communicate that with the storage battery inspector who will seek intravenous treatment. She has been improving her offloading by avoiding direct pressure to the back of her legs. She is ready for theraskin application today. Progress of Wound: Improving - Physical Exam Vital Signs Temp Pulse Resp BP 97.8 F 100 20 H 104/61 02/14/18 14:01 02/14/18 14:01 02/14/18 14:01 02/14/18 14:01 General: Alert, Oriented x3, Cooperative Extremities: No cyanosis, Capillary Refill Less than 3 Seconds, No Calf Tenderness, Diminished Peripheral Pulses, Edema Skin: Ulcer/ Wound - No purulence, no erythema, streaking, odor, no infection bilateral lower extremities. There is decreased fibrous tissue and scant eschar. The medial and anterior right leg wound and the entire left leg wound has significant granulation formation and peripheral epithelialization has been initiated, - - Her skin is atrophic and hairless bilateral. There is no exposed deep tissue bilateral Wound Measurements and Assessment WC - Nurse 1 - General Ulcer Measurement Start: 02/07/18 13:33 Freq: Status: Active Protocol: Activity Type Activity Date Activity User E-Sign Co-Sign Detail Recorded Client Recorded Date Recorded By Document 02/14/18 14:01 BJ [id number] 02/14/18 14:09 BJ 02/14/18 14:01 Wound Center Nurse 1 [Ulcer Assessment] #4 Left calf -Combined with other wound No -Current Size (cm) - Length 12.0 -Current Size (cm) - Width 6.0 -Current Size (cm) - Depth 0.4 -Total Square Cm 72.00 -Photo Taken No -Epithelialization Small 1-33% -Tunneling No -Undermining/Tunneling No -Circular Undermining No -Exudate Amt Large (67-100%) -Exudate Type Serosanguineous -Wound Margin Flat & Intact -Granulation Amt Medium (34-66%) -Granulation Quality [place] -Slough/Fibrin Yes -Necrosis Amt Large (67-100%) -Necrotic Tissue Type Adherent Slough -Texture (Gabriella-wound Skin Appearance) Assessed Localized Edema -Moisture (Gabriella-wound Skin Appearance Assessed ) Dry/Scaly -Color (Gabriella-wound Skin Appearance) Assessed -Temperature (Gabriella-wound Skin No Abnormality Appearance) (Pt Warm) -Tenderness on Palpation (Gabriella-wound No Skin Appearance) -Ulcer Cleansing Wound Cleanser -Foul Odor after Cleansing No -Anesthetic Used 4% Lidocaine Solution 5% Lidocaine Gel #3 RIGHT MEDIAL LE CLUSTER -Combined with other wound No -Current Size (cm) - Length 22.5 -Current Size (cm) - Width 12.0 -Current Size (cm) - Depth 0.3 -Total Square Cm 270.00 -Photo Taken No -Epithelialization Medium 34-66% -Tunneling No -Undermining/Tunneling No -Circular Undermining No -Exudate Amt Large (67-100%) -Exudate Type Serosanguineous -Wound Margin Flat & Intact -Granulation Amt Small (1-33%) -Granulation Quality [place] -Slough/Fibrin Yes -Necrosis Amt Large (67-100%) -Necrotic Tissue Type Adherent Slough -Structure Exposed N/A -Texture (Gabriella-wound Skin Appearance) Assessed Localized Edema -Moisture (Gabriella-wound Skin Appearance Assessed ) Dry/Scaly -Color (Gabriella-wound Skin Appearance) Assessed -Temperature (Gabriella-wound Skin No Abnormality Appearance) (Pt Warm) -Tenderness on Palpation (Gabriella-wound No Skin Appearance) -Ulcer Cleansing Wound Cleanser -Foul Odor after Cleansing No -Anesthetic Used 4% Lidocaine Solution 5% Lidocaine Gel [Edema Assessment] -Lower Limb Edema Present Yes -Right Calf (cm) 35.7 -Right Ankle (cm) 23.2 -Left Calf (cm) 32.5 -Left Ankle (cm) 22.0 WC - Nurse 2 - General Ulcer CM Notes Start: 02/07/18 13:33 Freq: Status: Active Protocol: Activity Type Activity Date Activity User E-Sign Co-Sign Detail Recorded Client Recorded Date Recorded By Document 02/14/18 14:48 BJ [id number] 02/14/18 14:50 BJ 02/14/18 14:48 Wound Center Nurse 2 [Procedure/Treatment] #4 Left calf -Time 14:48 -Correct Patient Yes -Correct Side, Site, Position Yes -Correct Procedure Yes -Procedure Performed Yes -Type of Procedure Debridement -Clinical Debridement Subcutaneous -Post Debridement Size (cm) - Length 12 -Post Debridement Size (cm) - Width 6.1 -Post Debridement Size (cm) - Depth 0.4 -Total Square Cm 73.2 -Wound/Ulcer Outcome Not Healed -Ulcer Cleansing Rinsed/ Irrigated with Saline -Foul Odor after Cleansing No -Bioengineered Tissue No -Bleeding Controlled with Pressure -Other Theraskin 5.1x7 .6 applied. -Treatment Response Procedure Tolerated Well #3 RIGHT MEDIAL LE CLUSTER -Time 14:49 -Correct Patient Yes -Correct Side, Site, Position Yes -Correct Procedure Yes -Procedure Performed Yes -Type of Procedure Debridement -Clinical Debridement Subcutaneous -Post Debridement Size (cm) - Length 22.5 -Post Debridement Size (cm) - Width 12.1 -Post Debridement Size (cm) - Depth 0.4 -Total Square Cm 272.25 -Wound/Ulcer Outcome Not Healed -Ulcer Cleansing Rinsed/ Irrigated with Saline -Foul Odor after Cleansing No -Bioengineered Tissue No -Bleeding Controlled with Pressure -Other Theraskin 5.1x7 .6cm applied -Treatment Response Procedure Tolerated Well [See Physician Procedure note for Specifics] Pain Scale: 0-10 Numeric [Pain] -Is Patient Pain Free? Yes Musculoskeletal: No Tenderness to Palpation of Joints or Extremities, Muscle Wasting, Tenderness - Pain with manipulation debridement bilateral, - - Compartments remain soft bilateral lower extremities Neurological: Sensory exam intact to light touch and pain Psych/Mental Status: Normal Affect, Appropriate Debridement Note Post-Debridement Measurements/Treatment WC - Nurse 2 - General Ulcer CM Notes Start: 02/07/18 13:33 Freq: Status: Active Protocol: Activity Type Activity Date Activity User E-Sign Co-Sign Detail Recorded Client Recorded Date Recorded By Document 02/07/18 14:14 [id number] 02/07/18 14:23 Document 02/14/18 14:48 [id number] 02/14/18 14:50 02/07/18 02/14/18 14:14 14:48 Wound Center Nurse 2 #4 Left calf -Time 14:19 14:48 -Correct Patient Yes Yes -Correct Side, Site, Position Yes Yes -Correct Procedure Yes Yes -Procedure Performed Yes Yes -Type of Procedure Debridement Debridement -Clinical Debridement Subcutaneous Subcutaneous -Post Debridement Size (cm) - Length 11.5 12 -Post Debridement Size (cm) - Width 5.7 6.1 -Post Debridement Size (cm) - Depth 0.4 0.4 -Total Square Cm 65.55 73.2 -Wound/Ulcer Outcome Not Healed Not Healed -Ulcer Cleansing Rinsed/ Rinsed/ Irrigated with Irrigated with Saline Saline -Foul Odor after Cleansing No No -Bioengineered Tissue No No -Bleeding Controlled with Pressure Pressure -Other Theraskin 5.1x7 .6 applied. -Treatment Response Procedure Procedure Tolerated Well Tolerated Well #3 RIGHT MEDIAL LE CLUSTER -Time 14:14 14:49 -Correct Patient Yes Yes -Correct Side, Site, Position Yes Yes -Correct Procedure Yes Yes -Procedure Performed Yes Yes -Type of Procedure Debridement Debridement -Clinical Debridement Subcutaneous Subcutaneous -Post Debridement Size (cm) - Length 14 22.5 -Post Debridement Size (cm) - Width 23.1 12.1 -Post Debridement Size (cm) - Depth 0.4 0.4 -Total Square Cm 323.4 272.25 -Wound/Ulcer Outcome Not Healed Not Healed -Ulcer Cleansing Rinsed/ Rinsed/ Irrigated with Irrigated with Saline Saline -Foul Odor after Cleansing No No -Bioengineered Tissue No No -Bleeding Controlled with Pressure Pressure -Other Theraskin 5.1x7 .6cm applied -Treatment Response Procedure Procedure Tolerated Well Tolerated Well Pain Scale: 0-10 Numeric Is Patient Pain Free? Yes Yes Wound debrided: leg Laterality: Right Type of Debridement: Excisional debridement Anesthesia Used: 5% Lidocaine Gel Depth: in the subcutaneous layer Percentage of wound debrided: 100 Instrument Used: #15 blade Tissue Removed: fibrous, devitalized subcutaneous, biofilm, slough Severity: Fat Layer Exposed Amount of bleeding with debridement: Mild Bleeding Controlled with: Pressure Patient tolerated procedure well - Additional Wound Wound debrided: leg Laterality: Left Type of Debridement: Excisional debridement Anesthesia Used: 5% Lidocaine Gel Depth: in the subcutaneous layer Percentage of wound debrided: 100 Instrument Used: #15 blade Tissue Removed: fibrous, devitalized subcutaneous, biofilm, slough Severity: Fat Layer Exposed Amount of bleeding with debridement: Mild Bleeding Controlled with: Pressure Patient tolerated procedure: Patient tolerated procedure well Assessment/Plan Assessment: Venous ulcers of b/l LE due to venous insufficiency. Delayed healing. venous insufficiency. Malnutrition suspected. Lower extremity pain. Differential diagnoses includes calciphylaxis. Multiple comorbidities noted. Calciphylaxis Plan: She was evaluated today in her care plan was discussed. She is amenable for debridement again today. Subcutaneous debridement was performed as noted in the clinical panel to bilateral lower extremities. She tolerated this well. Verbal consent was obtained for application of advanced wound care product, Theraskin which is a cryopreserved skin donation. The indications, application process, and anticipated healing time management was discussed in detail. This was applied according to standard protocol and further secured with Steri-Strips. Additional wound veil and Steri-Strips were further applied. She is advised to keep this clean, dry, and intact until follow-up visit next week. She tolerated the process well. To continue with light compression. She a follow up with Dr. Pelaez for evaluation of her arterial Doppler exam which appeared to have distal perfusion. Continue to follow up with Dr. Carbajal as scheduled for pain management and dermatology as advised. A biopsy of the legs skin was obtained and the results were reviewed today and will be placed in her chart. I reiterated the importance of taking pressure off of these wound sites. She was told by her doctor to stop taking glucerna as it had too much calcium. To only take nutritional supplementation but do not have additional calcium in them. We reviewed this in detail that her last clinical evaluation. To return to clinic in 1 week at the wound care center or call sooner if she has any questions or concerns. She is to call if increased drainage or changes in wounds or if the patient or her has additional concerns or questions. I will request storage battery inspector, Dr. Almonte's, notes and will communicate his progress with this physician to see if more aggressive therapy is needed.
--- NOTE | 2018-02-14 16:03 | PN.PCM_ITS ---
(1) Ulcer of right lower extremity with fat layer exposed Status: Chronic Code(s): L97.912 - Non-pressure chronic ulcer of unspecified part of right lower leg with fat layer exposed (2) Ulcer of left lower extremity with fat layer exposed Status: Chronic Code(s): L97.922 - Non-pressure chronic ulcer of unspecified part of left lower leg with fat layer exposed (3) Calciphylaxis Status: Chronic Code(s): E83.59 - Other disorders of calcium metabolism (4) Pain in right leg Status: Chronic Code(s): M79.604 - Pain in right leg (5) Pain in left leg Status: Chronic Code(s): M79.605 - Pain in left leg (6) Delayed wound healing Status: Chronic Code(s): T14.8XXD - Other injury of unspecified body region, subsequent encounter (7) Localized edema Status: Chronic Code(s): R60.0 - Localized edema Type of Wound Date of Service: 02/19/18 Chief Complaint: Wounds/ulcers of b/l lower legs History of Wound: Di is a 72 year old female that returns for follow up of bilateral leg ulcers. She has been changing the dressings every other day and denies odor or redness. Home health is helping her change the dressings. She has been applying hydrogel and states she is ready for debridement again today. She has tapered off of prednisone. Her venous studies showed incompetent left SFJ. She will follow up with Dr. Pelaez regarding the results of this testing for possible procedure to address SFJ incompetence. She denies fever, chills, nausea, vomiting. She denies calf pain. She is with her today. She was diagnosed with calciphylaxis at her recent visit to the type proof reproducer. She had a biopsy of her legs skin to confirm this diagnosis and has seen stain maker, Dr. Almonte. She elected to decrease her phosphorus and calcium intake through her diet. If this is not successful I will communicate that with the stain maker who will seek intravenous treatment. She has been improving her offloading by avoiding direct pressure to the back of her legs. She is ready for theraskin application today. Progress of Wound: Improving - Physical Exam Vital Signs Temp Pulse Resp BP 97.8 F 100 20 H 104/61 02/14/18 14:01 02/14/18 14:01 02/14/18 14:01 02/14/18 14:01 General: Alert, Oriented x3, Cooperative Extremities: No cyanosis, Capillary Refill Less than 3 Seconds, No Calf Tenderness, Diminished Peripheral Pulses, Edema Skin: Ulcer/ Wound - No purulence, no erythema, streaking, odor, no infection bilateral lower extremities. There is decreased fibrous tissue and scant eschar. The medial and anterior right leg wound and the entire left leg wound has significant granulation formation and peripheral epithelialization has been initiated, - - Her skin is atrophic and hairless bilateral. There is no exposed deep tissue bilateral Wound Measurements and Assessment WC - Nurse 1 - General Ulcer Measurement Start: 02/07/18 13:33 Freq: Status: Active Protocol: Activity Type Activity Date Activity User E-Sign Co-Sign Detail Recorded Client Recorded Date Recorded By Document 02/14/18 14:01 BJ [id number] 02/14/18 14:09 BJ 02/14/18 14:01 Wound Center Nurse 1 [Ulcer Assessment] #4 Left calf -Combined with other wound No -Current Size (cm) - Length 12.0 -Current Size (cm) - Width 6.0 -Current Size (cm) - Depth 0.4 -Total Square Cm 72.00 -Photo Taken No -Epithelialization Small 1-33% -Tunneling No -Undermining/Tunneling No -Circular Undermining No -Exudate Amt Large (67-100%) -Exudate Type Serosanguineous -Wound Margin Flat & Intact -Granulation Amt Medium (34-66%) -Granulation Quality [place] -Slough/Fibrin Yes -Necrosis Amt Large (67-100%) -Necrotic Tissue Type Adherent Slough -Texture (Gabriella-wound Skin Appearance) Assessed Localized Edema -Moisture (Gabriella-wound Skin Appearance Assessed ) Dry/Scaly -Color (Gabriella-wound Skin Appearance) Assessed -Temperature (Gabriella-wound Skin No Abnormality Appearance) (Pt Warm) -Tenderness on Palpation (Gabriella-wound No Skin Appearance) -Ulcer Cleansing Wound Cleanser -Foul Odor after Cleansing No -Anesthetic Used 4% Lidocaine Solution 5% Lidocaine Gel #3 RIGHT MEDIAL LE CLUSTER -Combined with other wound No -Current Size (cm) - Length 22.5 -Current Size (cm) - Width 12.0 -Current Size (cm) - Depth 0.3 -Total Square Cm 270.00 -Photo Taken No -Epithelialization Medium 34-66% -Tunneling No -Undermining/Tunneling No -Circular Undermining No -Exudate Amt Large (67-100%) -Exudate Type Serosanguineous -Wound Margin Flat & Intact -Granulation Amt Small (1-33%) -Granulation Quality [place] -Slough/Fibrin Yes -Necrosis Amt Large (67-100%) -Necrotic Tissue Type Adherent Slough -Structure Exposed N/A -Texture (Gabriella-wound Skin Appearance) Assessed Localized Edema -Moisture (Gabriella-wound Skin Appearance Assessed ) Dry/Scaly -Color (Gabriella-wound Skin Appearance) Assessed -Temperature (Gabriella-wound Skin No Abnormality Appearance) (Pt Warm) -Tenderness on Palpation (Gabriella-wound No Skin Appearance) -Ulcer Cleansing Wound Cleanser -Foul Odor after Cleansing No -Anesthetic Used 4% Lidocaine Solution 5% Lidocaine Gel [Edema Assessment] -Lower Limb Edema Present Yes -Right Calf (cm) 35.7 -Right Ankle (cm) 23.2 -Left Calf (cm) 32.5 -Left Ankle (cm) 22.0 WC - Nurse 2 - General Ulcer CM Notes Start: 02/07/18 13:33 Freq: Status: Active Protocol: Activity Type Activity Date Activity User E-Sign Co-Sign Detail Recorded Client Recorded Date Recorded By Document 02/14/18 14:48 BJ [id number] 02/14/18 14:50 BJ 02/14/18 14:48 Wound Center Nurse 2 [Procedure/Treatment] #4 Left calf -Time 14:48 -Correct Patient Yes -Correct Side, Site, Position Yes -Correct Procedure Yes -Procedure Performed Yes -Type of Procedure Debridement -Clinical Debridement Subcutaneous -Post Debridement Size (cm) - Length 12 -Post Debridement Size (cm) - Width 6.1 -Post Debridement Size (cm) - Depth 0.4 -Total Square Cm 73.2 -Wound/Ulcer Outcome Not Healed -Ulcer Cleansing Rinsed/ Irrigated with Saline -Foul Odor after Cleansing No -Bioengineered Tissue No -Bleeding Controlled with Pressure -Other Theraskin 5.1x7 .6 applied. -Treatment Response Procedure Tolerated Well #3 RIGHT MEDIAL LE CLUSTER -Time 14:49 -Correct Patient Yes -Correct Side, Site, Position Yes -Correct Procedure Yes -Procedure Performed Yes -Type of Procedure Debridement -Clinical Debridement Subcutaneous -Post Debridement Size (cm) - Length 22.5 -Post Debridement Size (cm) - Width 12.1 -Post Debridement Size (cm) - Depth 0.4 -Total Square Cm 272.25 -Wound/Ulcer Outcome Not Healed -Ulcer Cleansing Rinsed/ Irrigated with Saline -Foul Odor after Cleansing No -Bioengineered Tissue No -Bleeding Controlled with Pressure -Other Theraskin 5.1x7 .6cm applied -Treatment Response Procedure Tolerated Well [See Physician Procedure note for Specifics] Pain Scale: 0-10 Numeric [Pain] -Is Patient Pain Free? Yes Musculoskeletal: No Tenderness to Palpation of Joints or Extremities, Muscle Wasting, Tenderness - Pain with manipulation debridement bilateral, - - Compartments remain soft bilateral lower extremities Neurological: Sensory exam intact to light touch and pain Psych/Mental Status: Normal Affect, Appropriate Debridement Note Post-Debridement Measurements/Treatment WC - Nurse 2 - General Ulcer CM Notes Start: 02/07/18 13:33 Freq: Status: Active Protocol: Activity Type Activity Date Activity User E-Sign Co-Sign Detail Recorded Client Recorded Date Recorded By Document 02/07/18 14:14 [id number] 02/07/18 14:23 Document 02/14/18 14:48 [id number] 02/14/18 14:50 02/07/18 02/14/18 14:14 14:48 Wound Center Nurse 2 #4 Left calf -Time 14:19 14:48 -Correct Patient Yes Yes -Correct Side, Site, Position Yes Yes -Correct Procedure Yes Yes -Procedure Performed Yes Yes -Type of Procedure Debridement Debridement -Clinical Debridement Subcutaneous Subcutaneous -Post Debridement Size (cm) - Length 11.5 12 -Post Debridement Size (cm) - Width 5.7 6.1 -Post Debridement Size (cm) - Depth 0.4 0.4 -Total Square Cm 65.55 73.2 -Wound/Ulcer Outcome Not Healed Not Healed -Ulcer Cleansing Rinsed/ Rinsed/ Irrigated with Irrigated with Saline Saline -Foul Odor after Cleansing No No -Bioengineered Tissue No No -Bleeding Controlled with Pressure Pressure -Other Theraskin 5.1x7 .6 applied. -Treatment Response Procedure Procedure Tolerated Well Tolerated Well #3 RIGHT MEDIAL LE CLUSTER -Time 14:14 14:49 -Correct Patient Yes Yes -Correct Side, Site, Position Yes Yes -Correct Procedure Yes Yes -Procedure Performed Yes Yes -Type of Procedure Debridement Debridement -Clinical Debridement Subcutaneous Subcutaneous -Post Debridement Size (cm) - Length 14 22.5 -Post Debridement Size (cm) - Width 23.1 12.1 -Post Debridement Size (cm) - Depth 0.4 0.4 -Total Square Cm 323.4 272.25 -Wound/Ulcer Outcome Not Healed Not Healed -Ulcer Cleansing Rinsed/ Rinsed/ Irrigated with Irrigated with Saline Saline -Foul Odor after Cleansing No No -Bioengineered Tissue No No -Bleeding Controlled with Pressure Pressure -Other Theraskin 5.1x7 .6cm applied -Treatment Response Procedure Procedure Tolerated Well Tolerated Well Pain Scale: 0-10 Numeric Is Patient Pain Free? Yes Yes Wound debrided: leg Laterality: Right Type of Debridement: Excisional debridement Anesthesia Used: 5% Lidocaine Gel Depth: in the subcutaneous layer Percentage of wound debrided: 100 Instrument Used: #15 blade Tissue Removed: fibrous, devitalized subcutaneous, biofilm, slough Severity: Fat Layer Exposed Amount of bleeding with debridement: Mild Bleeding Controlled with: Pressure Patient tolerated procedure well - Additional Wound Wound debrided: leg Laterality: Left Type of Debridement: Excisional debridement Anesthesia Used: 5% Lidocaine Gel Depth: in the subcutaneous layer Percentage of wound debrided: 100 Instrument Used: #15 blade Tissue Removed: fibrous, devitalized subcutaneous, biofilm, slough Severity: Fat Layer Exposed Amount of bleeding with debridement: Mild Bleeding Controlled with: Pressure Patient tolerated procedure: Patient tolerated procedure well Assessment/Plan Assessment: Venous ulcers of b/l LE due to venous insufficiency. Delayed healing. venous insufficiency. Malnutrition suspected. Lower extremity pain. Differential diagnoses includes calciphylaxis. Multiple comorbidities noted. Calciphylaxis Plan: She was evaluated today in her care plan was discussed. She is amenable for debridement again today. Subcutaneous debridement was performed as noted in the clinical panel to bilateral lower extremities. She tolerated this well. Verbal consent was obtained for application of advanced wound care product, Theraskin which is a cryopreserved skin donation. The indications, application process, and anticipated healing time management was discussed in detail. This was applied according to standard protocol and further secured with Steri- Strips. Additional wound veil and Steri-Strips were further applied. She is advised to keep this clean, dry, and intact until follow-up visit next week. She tolerated the process well. To continue with light compression. She a follow up with Dr. Pelaez for evaluation of her arterial Doppler exam which appeared to have distal perfusion. Continue to follow up with Dr. Carbajal as scheduled for pain management and dermatology as advised. A biopsy of the legs skin was obtained and the results were reviewed today and will be placed in her chart. I reiterated the importance of taking pressure off of these wound sites. She was told by her doctor to stop taking glucerna as it had too much calcium. To only take nutritional supplementation but do not have additional calcium in them. We reviewed this in detail that her last clinical evaluation. To return to clinic in 1 week at the wound care center or call sooner if she has any questions or concerns. She is to call if increased drainage or changes in wounds or if the patient or her has additional concerns or questions. I will request stain maker, Dr. Almonte's, notes and will communicate his progress with this physician to see if more aggressive therapy is needed.
[2018-02-21 13:58] VITALS: BP 113/68; PULSE 93; RESP 18; TEMP 36.3; BMI 35.4
--- NOTE | 2018-02-21 14:07 | WC ---
pt steristrips intact primary dressing left in place,
--- NOTE | 2018-02-21 15:30 | PN.PCM_ITS ---
(1) Ulcer of right lower extremity with fat layer exposed Status: Chronic Current Visit: Yes Code(s): L97.912 - Non-pressure chronic ulcer of unspecified part of right lower leg with fat layer exposed (2) Ulcer of left lower extremity with fat layer exposed Status: Chronic Current Visit: Yes Code(s): L97.922 - Non-pressure chronic ulcer of unspecified part of left lower leg with fat layer exposed (3) Calciphylaxis Status: Chronic Current Visit: Yes Code(s): E83.59 - Other disorders of calcium metabolism (4) Pain in right leg Status: Chronic Current Visit: Yes Code(s): M79.604 - Pain in right leg (5) Pain in left leg Status: Chronic Current Visit: Yes Code(s): M79.605 - Pain in left leg (6) Delayed wound healing Status: Chronic Current Visit: Yes Code(s): T14.8XXD - Other injury of unspecified body region, subsequent encounter (7) Localized edema Status: Chronic Current Visit: Yes Code(s): R60.0 - Localized edema Type of Wound Date of Service: 02/21/18 Chief Complaint: Wounds/ulcers of b/l lower legs History of Wound: Di is a 72 year old female that returns for follow up of bilateral leg ulcers. She has been changing the dressings every other day and denies odor or redness. Home health is helping her change the dressings. She has been applying hydrogel and states she is ready for debridement again today to the left lower extremity. She had a theraskin applied to the right leg ( medial aspect only). She has tapered off of prednisone. Her venous studies showed incompetent left SFJ. She will follow up with Dr. Pelaez regarding the results of this testing for possible procedure to address SFJ incompetence. She denies fever, chills, nausea, vomiting. She denies calf pain. She is with her today. She was diagnosed with calciphylaxis at her recent visit to the application tester. She had a biopsy of her legs skin to confirm this diagnosis and has seen medical technologist clinical, Dr. Almonte. She elected to decrease her phosphorus and calcium intake through her diet. If this is not successful I will communicate that with the medical technologist clinical who consider additional treatment. She has been improving her offloading by avoiding direct pressure to the back of her legs. Progress of Wound: Improving quality - Physical Exam Vital Signs Temp Pulse Resp BP 97.3 F L 93 18 113/68 02/21/18 13:58 02/21/18 13:58 02/21/18 13:58 02/21/18 13:58 General: Alert, Oriented x3, Cooperative Extremities: No cyanosis, Capillary Refill Less than 3 Seconds, No Calf Tenderness - Negative Kimberly and Layton bilateral, Diminished Peripheral Pulses, Edema - Bilateral lower extremities Skin: Ulcer/ Wound - theraskin is well adhered and is starting to incorporate to the medial right leg cluster. This remains intact and is secured with Steri- Strips and wound veil. The remainder of the ulcer sites has fibrous granular tissue with an insignificant amount of stairs eschar. There is no deep tissue exposed. The wounds still appear devitalized and had devitalized discoloration particularly to the posterior aspects. Her peripheral skin is very atrophic and no hair is noted to bilateral lower extremities Wound Measurements and Assessment WC - Nurse 1 - General Ulcer Measurement Start: 02/07/18 13:33 Freq: Status: Active Protocol: Activity Type Activity Date Activity User E-Sign Co-Sign Detail Recorded Client Recorded Date Recorded By Document 02/21/18 13:58 RB [id number] 02/21/18 14:09 RB 02/21/18 13:58 Wound Center Nurse 1 [Ulcer Assessment] #4 Left calf -Exudate Amt Medium (34-66%) -Exudate Type Serosanguineous #3 RIGHT MEDIAL LE CLUSTER -Combined with other wound No -Exudate Amt Large (67-100%) -Exudate Type Serosanguineous [Edema Assessment] -Lower Limb Edema Present Yes -Right Calf (cm) 36 -Right Ankle (cm) 23.2 -Left Calf (cm) 34.5 -Left Ankle (cm) 23 02/21/18 14:07 Wound Center by Jeannie García pt steristrips intact primary dressing left in place, Initialized on 02/21/18 14:07 - END OF NOTE Musculoskeletal: No Tenderness to Palpation of Joints or Extremities, Muscle Wasting Neurological: Sensory exam intact to light touch and pain Psych/Mental Status: Normal Affect, Appropriate Debridement Note Post-Debridement Measurements/Treatment WC - Nurse 2 - General Ulcer CM Notes Start: 05/16/18 13:33 Freq: Status: Active Protocol: Activity Type Activity Date Activity User E-Sign Co-Sign Detail Recorded Client Recorded Date Recorded By Document 02/07/18 14:14 [id number] 02/07/18 14:23 Document 02/14/18 14:48 [id number] 02/14/18 14:50 02/07/18 02/14/18 14:14 14:48 Wound Center Nurse 2 #4 Left calf -Time 14:19 14:48 -Correct Patient Yes Yes -Correct Side, Site, Position Yes Yes -Correct Procedure Yes Yes -Procedure Performed Yes Yes -Type of Procedure Debridement Debridement -Clinical Debridement Subcutaneous Subcutaneous -Post Debridement Size (cm) - Length 11.5 12 -Post Debridement Size (cm) - Width 5.7 6.1 -Post Debridement Size (cm) - Depth 0.4 0.4 -Total Square Cm 65.55 73.2 -Wound/Ulcer Outcome Not Healed Not Healed -Ulcer Cleansing Rinsed/ Rinsed/ Irrigated with Irrigated with Saline Saline -Foul Odor after Cleansing No No -Bioengineered Tissue No No -Bleeding Controlled with Pressure Pressure -Other Theraskin 5.1x7 .6 applied. -Treatment Response Procedure Procedure Tolerated Well Tolerated Well #3 RIGHT MEDIAL LE CLUSTER -Time 14:14 14:49 -Correct Patient Yes Yes -Correct Side, Site, Position Yes Yes -Correct Procedure Yes Yes -Procedure Performed Yes Yes -Type of Procedure Debridement Debridement -Clinical Debridement Subcutaneous Subcutaneous -Post Debridement Size (cm) - Length 14 22.5 -Post Debridement Size (cm) - Width 23.1 12.1 -Post Debridement Size (cm) - Depth 0.4 0.4 -Total Square Cm 323.4 272.25 -Wound/Ulcer Outcome Not Healed Not Healed -Ulcer Cleansing Rinsed/ Rinsed/ Irrigated with Irrigated with Saline Saline -Foul Odor after Cleansing No No -Bioengineered Tissue No No -Bleeding Controlled with Pressure Pressure -Other Theraskin 5.1x7 .6cm applied -Treatment Response Procedure Procedure Tolerated Well Tolerated Well Pain Scale: 0-10 Numeric Is Patient Pain Free? Yes Yes Wound debrided: leg cluster Laterality: Right Type of Debridement: Excisional debridement Anesthesia Used: 5% Lidocaine Gel Depth: in the subcutaneous layer Percentage of wound debrided: 50 - theraskin portion was left intact and secured with Steri-Strips and wound veil was applied last week. Instrument Used: 5mm curette Tissue Removed: fibrous, devitalized subcutaneous, biofilm, slough Severity: Fat Layer Exposed Amount of bleeding with debridement: Mild Bleeding Controlled with: Pressure Patient tolerated procedure well - Additional Wound Wound debrided: leg cluster Laterality: Left Type of Debridement: Excisional debridement Anesthesia Used: 5% Lidocaine Gel Depth: in the subcutaneous layer Percentage of wound debrided: 10 Instrument Used: 5mm curette Tissue Removed: fibrous, devitalized subcutaneous, biofilm, slough Severity: Fat Layer Exposed Amount of bleeding with debridement: Mild Bleeding Controlled with: Pressure Patient tolerated procedure: Patient tolerated procedure well Assessment/Plan Active Problems (Last Reviewed 12/26/17 @ 10:27 by Huang Alvarado MD) Calciphylaxis (Chronic) Ulcer of left lower extremity with fat layer exposed (Chronic) Ulcer of right lower extremity with fat layer exposed (Chronic) Pain in right leg (Chronic) Pain in left leg (Chronic) Delayed wound healing (Chronic) Localized edema (Chronic) Assessment: Venous ulcers of b/l LE due to venous insufficiency. Delayed healing. venous insufficiency. Malnutrition suspected. Lower extremity pain. Differential diagnoses includes calciphylaxis. Multiple comorbidities noted. Calciphylaxis not fully responding to diet controlled management Plan: She was evaluated today in her care plan was discussed. She is amenable for debridement again today which was performed to the lateral right leg cluster site. Subcutaneous debridement was performed as noted in the clinical panel to bilateral lower extremities. She tolerated this well. Theraskin which is a cryopreserved skin donation application will be considered and ordered again for application next week. The product was applied last week will continue to incorporate. The indications, application process, and anticipated healing time management was discussed in detail. She is advised to keep this clean, dry, and intact until follow-up visit next week. To continue with light compression. Adaptic was applied to the remainder of the wound. She has a follow up with Dr. Pelaez for evaluation of her arterial Doppler exam which appeared to have distal perfusion. Continue to follow up with Dr. Carbajal as scheduled for pain management and dermatology as advised. A biopsy of the legs skin was obtained and the results were reviewed today and will be placed in her chart. I reiterated the importance of taking pressure off of these wound sites. She was told by her doctor to stop taking glucerna as it had too much calcium. To only take nutritional supplementation but do not have additional calcium in them. We reviewed this in detail that her last clinical evaluation. I also encouraged to follow-up with nephrology to consider more aggressive treatment of this calciphylaxis with sodium thiosulfate. A handwritten recommendation was. She still has continued tissue devitalization and is demonstrating continued delayed healing . to return to clinic in 1 week at the wound care center or call sooner if she has any questions or concerns. She is to call if increased drainage or changes in wounds or if the patient or her has additional concerns or questions.
== END 2018-02-22 23:59 ==
LOC: WC 14:00
PROVIDERS: Family Provider Internal Medicine; PCP Internal Medicine; Visit Provider Podiatrist
DX: I83.009 Varicose veins of unspecified lower extremity with ulcer of unspecified site (principal); L97.912 Non-pressure chronic ulcer of unspecified part of right lower leg with fat layer exposed; L97.922 Non-pressure chronic ulcer of unspecified part of left lower leg with fat layer exposed; E83.59 Other disorders of calcium metabolism; M79.604 Pain in right leg; M79.605 Pain in left leg; T14.8XXD Other injury of unspecified body region, subsequent encounter; R60.0 Localized edema
CPT/HCPCS: 11042; 11045; 15271; Q4121

== ENCOUNTER → 2018-02-22 11:01 | Outpatient (CLI) | payer MEDICARE, SELFPAY ==
[2018-02-22 12:52] LABS: Albumin, Serum 2.9 g/dL (3.2-5.0); BUN 20 mg/dL (7-18); BUN/Creat Ratio 18.5 RATIO (10-20); Calcium,Total 8.6 mg/dL (8.5-10.1); Chloride 104 mmol/L (98-107); Creatinine, Serum 1.08 mg/dL (0.55-1.02); EST Glomerular Filtration Rate 53 mL/min (>60); Est Glom Filt Rate - Afr Amer 64 mL/min (>60); Glucose 137 mg/dL (74-106); Phosphorus 3.1 mg/dL (2.5-4.9); Potassium 4.1 mmol/L (3.5-5.1); Sodium Level 139 mmol/L (136-145)
== END ==
PROVIDERS: Family Provider Internal Medicine; PCP Internal Medicine; Visit Provider Internal Medicine Nephrology
DX: N18.3 Chronic kidney disease, stage 3 (moderate) (principal)
CPT/HCPCS: 36415; 80069

== ENCOUNTER 2018-02-28 14:34 | Outpatient (RCR) | payer MEDICARE, SELFPAY ==
[2018-02-23 01:06] VITALS: PULSE 90; RESP 18; TEMP 36.1
--- NOTE | 2018-02-28 14:34 | DT_ITS ---
This patient was seen during an EMR downtime February 26, 2018 - March 05, 2018. This patient may have a combination of paper and electronic documentation or all paper documentation. All documentation is viewable within the e-chart portion of [facility] for each patient visit.
== END 2018-03-24 23:59 ==
LOC: WC 14:34
PROVIDERS: Family Provider Internal Medicine; PCP Internal Medicine; Visit Provider Podiatrist
DX: E11.622 Type 2 diabetes mellitus with other skin ulcer (principal); E11.22 Type 2 diabetes mellitus with diabetic chronic kidney disease; N18.3 Chronic kidney disease, stage 3 (moderate); I83.218 Varicose veins of right lower extremity with both ulcer of other part of lower extremity and inflammation; I83.228 Varicose veins of left lower extremity with both ulcer of other part of lower extremity and inflammation; E83.59 Other disorders of calcium metabolism; L97.812 Non-pressure chronic ulcer of other part of right lower leg with fat layer exposed; L97.822 Non-pressure chronic ulcer of other part of left lower leg with fat layer exposed
CPT/HCPCS: 11042; 11045; 15271; Q4121

== ENCOUNTER → 2018-03-07 09:51 | Outpatient (CLI) | payer MEDICARE, SELFPAY ==
[2018-03-07 10:08] VITALS: BP 99/55; PULSE 67; RESP 16; TEMP 37; O2SAT 96; BMI 29.5
== END ==
PROVIDERS: Family Provider Internal Medicine; PCP Internal Medicine; Visit Provider Internal Medicine Nephrology
DX: E83.59 Other disorders of calcium metabolism (principal); E11.622 Type 2 diabetes mellitus with other skin ulcer; E11.22 Type 2 diabetes mellitus with diabetic chronic kidney disease; N18.3 Chronic kidney disease, stage 3 (moderate); I83.218 Varicose veins of right lower extremity with both ulcer of other part of lower extremity and inflammation; I83.228 Varicose veins of left lower extremity with both ulcer of other part of lower extremity and inflammation; L97.812 Non-pressure chronic ulcer of other part of right lower leg with fat layer exposed; L97.822 Non-pressure chronic ulcer of other part of left lower leg with fat layer exposed
CPT/HCPCS: 96365; 11042; 11045; 15271; J7050; Q4121; A4216; J3490

== ENCOUNTER → 2018-03-14 09:40 | Outpatient (CLI) | payer MEDICARE, SELFPAY ==
[2018-03-14 09:58] VITALS: BP 104/56; PULSE 53; RESP 18; TEMP 36.3; O2SAT 92; BMI 29.9
== END ==
PROVIDERS: Family Provider Internal Medicine; PCP Internal Medicine; Visit Provider Internal Medicine Nephrology
DX: E83.59 Other disorders of calcium metabolism (principal)
CPT/HCPCS: 96365; J7050; A4216; J3490

== ENCOUNTER 2018-03-21 08:00 | Outpatient (RCR) | payer MEDICARE, SELFPAY ==
[2018-02-23 00:34] VITALS: BP 113/68; PULSE 93; RESP 18; TEMP 36.3; BMI 35.4
[2018-03-07 14:44] VITALS: BP 98/64; PULSE 86; RESP 18; TEMP 36; BMI 35.4
--- NOTE | 2018-03-07 15:43 | PCM.WC.PN ---
(1) Ulcer of right lower extremity with fat layer exposed Status: Chronic Current Visit: Yes Code(s): L97.912 - Non-pressure chronic ulcer of unspecified part of right lower leg with fat layer exposed (2) Ulcer of left lower extremity with fat layer exposed Status: Chronic Current Visit: Yes Code(s): L97.922 - Non-pressure chronic ulcer of unspecified part of left lower leg with fat layer exposed (3) Calciphylaxis Status: Chronic Current Visit: Yes Code(s): E83.59 - Other disorders of calcium metabolism (4) Pain in right leg Status: Chronic Current Visit: Yes Code(s): M79.604 - Pain in right leg (5) Pain in left leg Status: Chronic Current Visit: Yes Code(s): M79.605 - Pain in left leg (6) Delayed wound healing Status: Chronic Current Visit: No Code(s): T14.8XXD - Other injury of unspecified body region, subsequent encounter (7) Localized edema Status: Chronic Current Visit: Yes Code(s): R60.0 - Localized edema (8) Diabetes mellitus Status: Chronic Current Visit: Yes Qualifiers: Diabetes mellitus type: type 2 Code(s): E11.9 - Type 2 diabetes mellitus without complications (9) Chronic kidney disease Status: Chronic Current Visit: Yes Qualifiers: Code(s): N18.9 - Chronic kidney disease, unspecified Type of Wound Date of Service: 03/07/18 Chief Complaint: Wounds/ulcers of b/l lower legs History of Wound: Di is a 72 year old female that returns for follow up of bilateral leg ulcers. She has been changing the dressings every other day and denies odor or redness to the left limb. Home health is helping her change the dressings on Monday. She had a total of 2 theraskin applications applied to the right leg (medial and anterior aspects only). She has tapered off of prednisone and has increased leg pain to the wound sites. She is scheduled to see Dr. Carbajal tomorrow. She relates her morphine is about to run out. Her venous studies showed incompetent left SFJ. She will follow up with Dr. Pelaez regarding the results of this testing for possible procedure to address SFJ incompetence. She denies fever, chills, nausea, vomiting. She denies calf pain. She is with her today. She was diagnosed with calciphylaxis and had a biopsy of her legs skin to confirm this diagnosis and has seen customs import specialist, Dr. Almonte. She elected to decrease her phosphorus and calcium intake through her diet. She demonstrated lack of improvement and underwent her first IV infusion of sodium thiosulfate. She did report some intermittent nausea afterward and denies vomiting or other illness. She has been improving her offloading by avoiding direct pressure to the back of her legs. Progress of Wound: Improving - Physical Exam Vital Signs Temp Pulse Resp BP 96.8 F L 86 18 98/64 03/07/18 14:44 03/07/18 14:44 03/07/18 14:44 03/07/18 14:44 General: Alert, Oriented x3, Cooperative HEENT: Atraumatic Extremities: No cyanosis, Capillary Refill Less than 3 Seconds, No Calf Tenderness - Negative mehta Bilateral, Diminished Peripheral Pulses, Edema - Bilateral lower extremities Skin: Ulcer/ Wound - No purulence, no erythema, streaking, odor, no acute infection bilateral lower extremities. Upon removal of the remaining Thera skin applied to the medial right leg there is improved granulation tissue and glazed intermittent epithelialization. There is no fibrous tissue or eschar noted to the site. The previous application of Thera skin to the anterior right leg remains intact with partial incorporation. The posterior right leg is fibrous and granular. There is no new eschar formation noted. The left limb has improved granulation tissue with intermittent fibrous tissue upon debridement there is only hematogenous drainage., - - The skin is hairless and atrophic bilateral lower extremities Wound Measurements and Assessment WC - Nurse 1 - General Ulcer Measurement Start: 03/07/18 14:44 Freq: Status: Active Protocol: Activity Type Activity Date Activity User E-Sign Co-Sign Detail Recorded Client Recorded Date Recorded By Document 03/07/18 14:44 DL [id number] 03/07/18 15:01 DL 03/07/18 14:44 Wound Center Nurse 1 [Ulcer Assessment] #4 Left calf -Current Size (cm) - Length 10.6 -Current Size (cm) - Width 6 -Current Size (cm) - Depth 0.5 -Total Square Cm 63.6 -Photo Taken No -Exudate Amt Large (67-100%) -Exudate Type Yellow/Green -Wound Margin Thickened & Rolled Under -Granulation Amt Medium (34-66%) -Granulation Quality Red -Necrosis Amt Medium (34-66%) -Necrotic Tissue Type Adherent Slough -Structure Exposed N/A -Texture (Gabriella-wound Skin Appearance) Localized Edema Scarring -Color (Gabriella-wound Skin Appearance) Erythema Rubor -Temperature (Gabriella-wound Skin No Abnormality Appearance) (Pt Warm) -Tenderness on Palpation (Gabriella-wound Yes Skin Appearance) -Ulcer Cleansing Wound Cleanser -Anesthetic Used 4% Lidocaine Solution #3 RIGHT MEDIAL LE CLUSTER -Current Size (cm) - Length 14 -Current Size (cm) - Width 21.2 -Current Size (cm) - Depth 0.6 -Total Square Cm 296.8 -Photo Taken No -Exudate Amt Large (67-100%) -Exudate Type Yellow/Green -Wound Margin Thickened & Rolled Under -Granulation Amt Medium (34-66%) -Granulation Quality Red -Necrosis Amt Medium (34-66%) -Necrotic Tissue Type Adherent Slough -Structure Exposed N/A -Texture (Gabriella-wound Skin Appearance) Scarring -Moisture (Gabriella-wound Skin Appearance No Abnormality ) -Color (Gabriella-wound Skin Appearance) Erythema Hemosiderin Staining Rubor -Temperature (Gabriella-wound Skin No Abnormality Appearance) (Pt Warm) -Ulcer Cleansing Wound Cleanser -Foul Odor after Cleansing No -Anesthetic Used 4% Lidocaine Solution [Edema Assessment] -Right Calf (cm) 35 -Right Ankle (cm) 22.8 -Left Calf (cm) 36.3 -Left Ankle (cm) 22.1 WC - Nurse 2 - General Ulcer CM Notes Start: 03/07/18 14:44 Freq: Status: Active Protocol: Activity Type Activity Date Activity User E-Sign Co-Sign Detail Recorded Client Recorded Date Recorded By Document 03/07/18 15:27 BJ [id number] 03/07/18 15:31 BJ 03/07/18 15:27 Wound Center Nurse 2 [Procedure/Treatment] #4 Left calf -Time 15:28 -Correct Patient Yes -Correct Side, Site, Position Yes -Correct Procedure Yes -Procedure Performed Yes -Type of Procedure Debridement -Clinical Debridement Subcutaneous -Post Debridement Size (cm) - Length 10.6 -Post Debridement Size (cm) - Width 6.1 -Post Debridement Size (cm) - Depth 0.5 -Total Square Cm 64.66 -Wound/Ulcer Outcome Not Healed -Ulcer Cleansing Rinsed/ Irrigated with Saline -Foul Odor after Cleansing No -Bioengineered Tissue No -Expiration Date 11/07/21 -Product Lot Number [id number] -Percent Used 100 -Saline Lot Number [id number] -Bleeding Controlled with Pressure -Other theraskin -Treatment Response Procedure Tolerated Well #3 RIGHT MEDIAL LE CLUSTER -Time 15:29 -Correct Patient Yes -Correct Side, Site, Position Yes -Correct Procedure Yes -Procedure Performed Yes -Type of Procedure Debridement -Clinical Debridement Subcutaneous -Post Debridement Size (cm) - Length 14 -Post Debridement Size (cm) - Width 21.2 -Post Debridement Size (cm) - Depth 0.6 -Total Square Cm 296.8 -Wound/Ulcer Outcome Not Healed -Ulcer Cleansing Rinsed/ Irrigated with Saline -Foul Odor after Cleansing No -Bioengineered Tissue No -Bleeding Controlled with Pressure -Other 20% of ulcer debrided. -Treatment Response Procedure Tolerated Well [See Physician Procedure note for Specifics] Pain Scale: 0-10 Numeric [Pain] -Is Patient Pain Free? Yes Musculoskeletal: No Tenderness to Palpation of Joints or Extremities, Muscle Wasting, - - Compartments remain soft bilateral lower extremities Neurological: Sensory exam intact to light touch and pain Psych/Mental Status: Normal Affect, Appropriate Debridement Note Post-Debridement Measurements/Treatment WC - Nurse 2 - General Ulcer CM Notes Start: 03/07/18 14:44 Freq: Status: Active Protocol: Activity Type Activity Date Activity User E-Sign Co-Sign Detail Recorded Client Recorded Date Recorded By Document 03/07/18 15:27 BJ [id number] 03/07/18 15:31 BJ 03/07/18 15:27 Wound Center Nurse 2 #4 Left calf -Time 15:28 -Correct Patient Yes -Correct Side, Site, Position Yes -Correct Procedure Yes -Procedure Performed Yes -Type of Procedure Debridement -Clinical Debridement Subcutaneous -Post Debridement Size (cm) - Length 10.6 -Post Debridement Size (cm) - Width 6.1 -Post Debridement Size (cm) - Depth 0.5 -Total Square Cm 64.66 -Wound/Ulcer Outcome Not Healed -Ulcer Cleansing Rinsed/ Irrigated with Saline -Foul Odor after Cleansing No -Bioengineered Tissue No -Expiration Date 11/07/21 -Product Lot Number [id number] -Percent Used 100 -Saline Lot Number [id number] -Bleeding Controlled with Pressure -Other theraskin -Treatment Response Procedure Tolerated Well #3 RIGHT MEDIAL LE CLUSTER -Time 15:29 -Correct Patient Yes -Correct Side, Site, Position Yes -Correct Procedure Yes -Procedure Performed Yes -Type of Procedure Debridement -Clinical Debridement Subcutaneous -Post Debridement Size (cm) - Length 14 -Post Debridement Size (cm) - Width 21.2 -Post Debridement Size (cm) - Depth 0.6 -Total Square Cm 296.8 -Wound/Ulcer Outcome Not Healed -Ulcer Cleansing Rinsed/ Irrigated with Saline -Foul Odor after Cleansing No -Bioengineered Tissue No -Bleeding Controlled with Pressure -Other 20% of ulcer debrided. -Treatment Response Procedure Tolerated Well Pain Scale: 0-10 Numeric Is Patient Pain Free? Yes Wound debrided: posterior leg Laterality: Right Type of Debridement: Excisional debridement Anesthesia Used: 5% Lidocaine Gel Depth: in the subcutaneous layer Percentage of wound debrided: 20 Instrument Used: #15 blade, Forceps, - Tissue Removed: fibrous, devitalized subcutaneous, biofilm, slough Severity: Fat Layer Exposed Amount of bleeding with debridement: Mild Bleeding Controlled with: Pressure Patient tolerated procedure well - Additional Wound Wound debrided: leg Laterality: Left Type of Debridement: Excisional debridement Anesthesia Used: 5% Lidocaine Gel Depth: in the subcutaneous layer Percentage of wound debrided: 100 Instrument Used: #15 blade Severity: Fat Layer Exposed Amount of bleeding with debridement: Mild Bleeding Controlled with: Pressure Patient tolerated procedure: Patient tolerated procedure well Assessment/Plan Active Problems (Last Reviewed 12/26/17 @ 10:27 by Huang Alvarado MD) Calciphylaxis (Chronic) Ulcer of left lower extremity with fat layer exposed (Chronic) Ulcer of right lower extremity with fat layer exposed (Chronic) Pain in right leg (Chronic) Pain in left leg (Chronic) Localized edema (Chronic) Diabetes mellitus (Chronic) Chronic kidney disease (Chronic) Assessment: Venous ulcers of b/l LE due to venous insufficiency. Delayed healing. venous insufficiency. Malnutrition suspected. Lower extremity pain. Differential diagnoses includes calciphylaxis. Multiple comorbidities noted. Calciphylaxis Plan: She was evaluated today in her care plan was discussed. She is amenable for debridement again today which was performed to the posterior right leg cluster site. The anterior and medial right leg sites were kept intact with a wound veil and Steri-Strips. Very sparce debridement to the medial wound was performed after the remaining non-incorporated there are skin was manually removed. Subcutaneous debridement was performed as noted in the clinical panel to bilateral lower extremities. She tolerated this well. Theraskin which is a cryopreserved skin donation application will be considered and ordered again for application next week. The product was applied last week will continue to incorporate. The indications, application process, and anticipated healing time management was discussed in detail. A new application of Thera skin was applied to the large wound on the left posterior lateral leg according to standard protocol and after verbal consent was obtained. She tolerated this well. Debridement was performed, saline irrigation was done, and pressure was applied to maintain hemostasis prior to application. She is advised to keep this clean, dry, and intact until follow-up visit next week. She is advised to change the dressing every other day with hydrogel to the posterior right leg wound otherwise she will keep the other parts of the dressings intact. She demonstrates understanding. To continue with light compression. She has a follow up with Dr. Pelaez for evaluation of her arterial Doppler exam which appeared to have distal perfusion. Continue to follow up with Dr. Carbajal as scheduled for pain management and dermatology as advised. A biopsy of the legs skin was obtained and the results were reviewed today and will be placed in her chart. I reiterated the importance of taking pressure off of these wound sites. She was told by her doctor to stop taking glucerna as it had too much calcium. To only take nutritional supplementation but do not have additional calcium in them. To complete course of sodium thiosulfate for treatment of calciphylaxis as prescribed once a week for 1 month. It is noted jyoti had one session and tolerated overall. She still has continued tissue devitalization and is demonstrating continued delayed healing . to return to clinic in 1 week at the wound care center or call sooner if she has any questions or concerns. She is to call if increased drainage or changes in wounds or if the patient or her has additional concerns or questions.
[2018-03-14 14:04] VITALS: BP 120/82; PULSE 87; RESP 18; TEMP 36.1; BMI 35.4
--- NOTE | 2018-03-14 14:25 | WC ---
theraskin and steristrips and veil left in place, mild errythema of bilat LE.
--- NOTE | 2018-03-14 15:26 | PN.PCM_ITS ---
(1) Ulcer of right lower extremity with fat layer exposed Status: Chronic Current Visit: Yes Code(s): L97.912 - Non-pressure chronic ulcer of unspecified part of right lower leg with fat layer exposed (2) Ulcer of left lower extremity with fat layer exposed Status: Chronic Current Visit: Yes Code(s): L97.922 - Non-pressure chronic ulcer of unspecified part of left lower leg with fat layer exposed (3) Calciphylaxis Status: Chronic Current Visit: Yes Code(s): E83.59 - Other disorders of calcium metabolism (4) Pain in right leg Status: Chronic Current Visit: Yes Code(s): M79.604 - Pain in right leg (5) Pain in left leg Status: Chronic Current Visit: Yes Code(s): M79.605 - Pain in left leg (6) Delayed wound healing Status: Chronic Current Visit: No Code(s): T14.8XXD - Other injury of unspecified body region, subsequent encounter (7) Localized edema Status: Chronic Current Visit: Yes Code(s): R60.0 - Localized edema (8) Diabetes mellitus Status: Chronic Current Visit: Yes Qualifiers: Diabetes mellitus type: type 2 Code(s): E11.9 - Type 2 diabetes mellitus without complications (9) Chronic kidney disease Status: Chronic Current Visit: Yes Qualifiers: Code(s): N18.9 - Chronic kidney disease, unspecified Type of Wound Date of Service: 03/14/18 Chief Complaint: Wounds/ulcers of b/l lower legs History of Wound: Di is a 72 year old female that returns for follow up of bilateral leg ulcers. She has been changing the dressings every other day and denies odor or redness to the left limb. She had a total of 2 theraskin applications applied to the right leg (medial and anterior aspects only) and one to the left leg. She has tapered off of prednisone and has increased leg pain to the wound sites. She is scheduled to have an epidural with Dr. Carbajal next Monday for pain control. She relates her morphine is about to run out. Her venous studies showed incompetent left SFJ. She will follow up with Dr. Pelaez regarding the results of this testing for possible procedure to address SFJ incompetence. She denies fever, chills, nausea, vomiting. She denies calf pain. She is with her today. She was diagnosed with calciphylaxis and had a biopsy of her legs skin to confirm this diagnosis and has seen lunch truck driver, Dr. Almonte. She continues with IV infusion of sodium thiosulfate for calciphylaxis treatment. She has been improving her offloading by avoiding direct pressure to the back of her legs. Progress of Wound: Improving - Physical Exam Vital Signs Temp Pulse Resp BP 97 F L 87 18 120/82 H 03/14/18 14:04 03/14/18 14:04 03/14/18 14:04 03/14/18 14:04 General: Alert, Oriented x3, Cooperative Extremities: No cyanosis, Capillary Refill Less than 3 Seconds, No Calf Tenderness - Negative Layton sign bilateral, Diminished Peripheral Pulses, Edema - Bilateral lower extremity +2 Skin: Ulcer/ Wound - No purulence, no erythema, no streaking, no odor, no infection bilateral lower extremity. That there is skin remains intact with wound veil and Steri-Strips to the left leg and also to the lateral right leg. There is improved granulation tissue and healthy appearance of the right anterior leg and this is the site of the first application of Thera skin. Continue glazing continues. There is no exposed muscle or other deep tissue bilateral. The skin is atrophic. There is continued fibrous tissue to the posterior right leg and increased granulation tissue also noted. There is scant eschar to bilateral lower extremities. Wound Measurements and Assessment WC - Nurse 1 - General Ulcer Measurement Start: 03/07/18 14:44 Freq: Status: Active Protocol: Activity Type Activity Date Activity User E-Sign Co-Sign Detail Recorded Client Recorded Date Recorded By Document 03/14/18 14:04 [id number] 03/14/18 14:29 RB 03/14/18 14:04 Wound Center Nurse 1 [Ulcer Assessment] #4 Left calf -Combined with other wound No -Exudate Amt Medium (34-66%) -Exudate Type Serosanguineous -Wound Margin Thickened & Rolled Under -Color (Gabriella-wound Skin Appearance) Erythema -Temperature (Gabrielal-wound Skin No Abnormality Appearance) (Pt Warm) -Tenderness on Palpation (Gabriella-wound Yes Skin Appearance) -Foul Odor after Cleansing No #3 RIGHT MEDIAL LE CLUSTER -Combined with other wound No -Exudate Amt Medium (34-66%) -Exudate Type Serosanguineous -Wound Margin Thickened & Rolled Under -Color (Gabriella-wound Skin Appearance) Erythema -Tenderness on Palpation (Gabriella-wound Yes Skin Appearance) [Edema Assessment] -Lower Limb Edema Present Yes -Right Calf (cm) 41 -Right Ankle (cm) 24.5 -Left Calf (cm) 35.5 -Left Ankle (cm) 22.5 03/14/18 14:25 Wound Center by Jeannie García and steristrips and veil left in place, mild errythema of bilat LE. Initialized on 03/14/18 14:25 - END OF NOTE WC - Nurse 2 - General Ulcer CM Notes Start: 03/07/18 14:44 Freq: Status: Active Protocol: Activity Type Activity Date Activity User E-Sign Co-Sign Detail Recorded Client Recorded Date Recorded By Document 03/14/18 14:42 BJ [id number] 03/14/18 14:55 BJ 03/14/18 14:42 Wound Center Nurse 2 [Procedure/Treatment] #4 Left calf -Time 14:44 -Wound/Ulcer Outcome Not Healed -Ulcer Cleansing Rinsed/ Irrigated with Saline -Foul Odor after Cleansing No -Bioengineered Tissue No -Bleeding Controlled with NA Pressure -Other 1.2 x 1.6 x 0[address] Dee SQ level -Treatment Response Procedure Tolerated Well #3 RIGHT MEDIAL LE CLUSTER -Time 14:47 -Correct Patient Yes -Correct Side, Site, Position Yes -Correct Procedure Yes -Procedure Performed Yes -Type of Procedure Debridement -Clinical Debridement Subcutaneous -Post Debridement Size (cm) - Length 14.0 -Post Debridement Size (cm) - Width 7.2 -Post Debridement Size (cm) - Depth 0.2 -Total Square Cm 100.80 -Wound/Ulcer Outcome Not Healed -Ulcer Cleansing Rinsed/ Irrigated with Saline -Foul Odor after Cleansing No -Bioengineered Tissue No -Expiration Date 11/21/21 -Product Lot Number [id number] -Percent Used 100 -Saline Lot Number [id number] -Bleeding Controlled with Pressure -Other Theraskin -Treatment Response Procedure Tolerated Well [See Physician Procedure note for Specifics] Pain Scale: 0-10 Numeric [Pain] -Is Patient Pain Free? Yes Musculoskeletal: No Tenderness to Palpation of Joints or Extremities, Muscle Wasting Neurological: Sensory exam intact to light touch and pain - Hypersensitivity noted Psych/Mental Status: Normal Affect, Appropriate Debridement Note Post-Debridement Measurements/Treatment WC - Nurse 2 - General Ulcer CM Notes Start: 03/07/18 14:44 Freq: Status: Active Protocol: Activity Type Activity Date Activity User E-Sign Co-Sign Detail Recorded Client Recorded Date Recorded By Document 03/07/18 15:27 [id number] 03/07/18 15:31 Document 03/14/18 14:42 [id number] 03/14/18 14:55 03/07/18 03/14/18 15:27 14:42 Wound Center Nurse 2 #4 Left calf -Time 15:28 14:44 -Correct Patient Yes -Correct Side, Site, Position Yes -Correct Procedure Yes -Procedure Performed Yes -Type of Procedure Debridement -Clinical Debridement Subcutaneous -Post Debridement Size (cm) - Length 10.6 -Post Debridement Size (cm) - Width 6.1 -Post Debridement Size (cm) - Depth 0.5 -Total Square Cm 64.66 -Wound/Ulcer Outcome Not Healed Not Healed -Ulcer Cleansing Rinsed/ Rinsed/ Irrigated with Irrigated with Saline Saline -Foul Odor after Cleansing No No -Bioengineered Tissue No No -Expiration Date 11/07/21 -Product Lot Number [id number] -Percent Used 100 -Saline Lot Number [id number] -Bleeding Controlled with Pressure NA Pressure -Other theraskin 1.2 x 1.6 x 0[address] Dee SQ level -Treatment Response Procedure Procedure Tolerated Well Tolerated Well #3 RIGHT MEDIAL LE CLUSTER -Time 15:29 14:47 -Correct Patient Yes Yes -Correct Side, Site, Position Yes Yes -Correct Procedure Yes Yes -Procedure Performed Yes Yes -Type of Procedure Debridement Debridement -Clinical Debridement Subcutaneous Subcutaneous -Post Debridement Size (cm) - Length 14 14.0 -Post Debridement Size (cm) - Width 21.2 7.2 -Post Debridement Size (cm) - Depth 0.6 0.2 -Total Square Cm 296.8 100.80 -Wound/Ulcer Outcome Not Healed Not Healed -Ulcer Cleansing Rinsed/ Rinsed/ Irrigated with Irrigated with Saline Saline -Foul Odor after Cleansing No No -Bioengineered Tissue No No -Expiration Date 11/21/21 -Product Lot Number [id number] -Percent Used 100 -Saline Lot Number [id number] -Bleeding Controlled with Pressure Pressure -Other 20% of ulcer Theraskin debrided. -Treatment Response Procedure Procedure Tolerated Well Tolerated Well Pain Scale: 0-10 Numeric Is Patient Pain Free? Yes Yes Wound debrided: posterior leg Laterality: Right Type of Debridement: Excisional debridement Anesthesia Used: 5% Lidocaine Gel Depth: in the subcutaneous layer Percentage of wound debrided: 100 Instrument Used: #15 blade Tissue Removed: fibrous, devitalized subcutaneous, biofilm, slough Severity: Fat Layer Exposed Amount of bleeding with debridement: Mild Bleeding Controlled with: Pressure Patient tolerated procedure well - Additional Wound Wound debrided: posterior leg (proximal site) Laterality: Left Type of Debridement: Excisional debridement Anesthesia Used: 5% Lidocaine Gel Depth: in the subcutaneous layer Percentage of wound debrided: 100 Instrument Used: #15 blade Tissue Removed: fibrous, devitalized subcutaneous, biofilm, slough Severity: Fat Layer Exposed Amount of bleeding with debridement: Mild Bleeding Controlled with: Pressure Patient tolerated procedure: Patient tolerated procedure well Assessment/Plan Active Problems (Last Reviewed 12/26/17 @ 10:27 by Huang Alvarado MD) Right leg pain (Chronic) Calciphylaxis (Chronic) Ulcer of left lower extremity with fat layer exposed (Chronic) Ulcer of right lower extremity with fat layer exposed (Chronic) Pain in right leg (Chronic) Pain in left leg (Chronic) Localized edema (Chronic) Diabetes mellitus (Chronic) Chronic kidney disease (Chronic) Assessment: Venous ulcers of b/l LE due to venous insufficiency. Delayed healing. venous insufficiency. Malnutrition suspected. Lower extremity pain. Differential diagnoses includes calciphylaxis. Multiple comorbidities noted. Calciphylaxis Plan: She was evaluated today and her care plan was discussed. She is amenable for debridement again today which was performed to the posterior right leg cluster site as well as the posterior left leg ulcer proximal site. The anterior right leg and also the left leg main ulcer sites were kept intact with a wound veil and Steri-Strips. The anterior right leg ulcer was also debrided subcutaneously as noted in the clinical panel and a an additional therapy skin was applied according to standard protocol. This was additionally secured in place with a wound veil and Steri-Strips. The indications, application process, and anticipated healing time management was discussed in detail. She is advised to keep that there is skin sites clean, dry, and intact until follow-up visit next week. She is advised to change the dressing every other day with hydrogel to the posterior right leg and posterior proximal left leg wound otherwise she will keep the other parts of the dressings intact. Home health will help her with this once this upcoming week and she will do that the other day. She demonstrates understanding. To continue with light compression. She has a follow up with Dr. Pelaez for evaluation of her arterial Doppler exam which appeared to have distal perfusion. Continue to follow up with Dr. Carbajal as scheduled for pain management and epidural injection next Monday. A biopsy of the legs skin was previously obtained and the results were reviewed today and will be placed in her chart. I reiterated the importance of taking pressure off of these wound sites. She was told by her doctor to stop taking glucerna as it had too much calcium. To only take nutritional supplementation but do not have additional calcium in them. To complete course of sodium thiosulfate for treatment of calciphylaxis as prescribed once a week for 1 month. to return to clinic in 1 week at the wound care center or call sooner if she has any questions or concerns. She is to call if increased drainage or changes in wounds or if the patient or her has additional concerns or questions.
[2018-03-21 08:32] VITALS: BP 135/63; PULSE 91; RESP 18; TEMP 36.3; BMI 35.4
--- NOTE | 2018-03-21 08:35 | WC ---
pt has steristrips and theraskin intact veil and sterstrips left intact
--- NOTE | 2018-03-21 09:57 | PN.PCM_ITS ---
(1) Ulcer of right lower extremity with fat layer exposed Status: Chronic Current Visit: Yes Code(s): L97.912 - Non-pressure chronic ulcer of unspecified part of right lower leg with fat layer exposed (2) Ulcer of left lower extremity with fat layer exposed Status: Chronic Current Visit: Yes Code(s): L97.922 - Non-pressure chronic ulcer of unspecified part of left lower leg with fat layer exposed (3) Calciphylaxis Status: Chronic Current Visit: Yes Code(s): E83.59 - Other disorders of calcium metabolism (4) Pain in right leg Status: Chronic Current Visit: Yes Code(s): M79.604 - Pain in right leg (5) Pain in left leg Status: Chronic Current Visit: Yes Code(s): M79.605 - Pain in left leg (6) Delayed wound healing Status: Chronic Current Visit: No Code(s): T14.8XXD - Other injury of unspecified body region, subsequent encounter (7) Localized edema Status: Chronic Current Visit: Yes Code(s): R60.0 - Localized edema (8) Diabetes mellitus Status: Chronic Current Visit: Yes Qualifiers: Diabetes mellitus type: type 2 Code(s): E11.9 - Type 2 diabetes mellitus without complications (9) Chronic kidney disease Status: Chronic Current Visit: Yes Qualifiers: Code(s): N18.9 - Chronic kidney disease, unspecified Type of Wound Date of Service: 03/21/18 Chief Complaint: Wounds/ulcers of b/l lower legs History of Wound: Di is a 72 year old female that returns for follow up of bilateral leg ulcers. She has been changing the dressings every other day and denies odor or redness to either limb. She had a total of 3 theraskin applications applied. She has tapered off of prednisone and has increased leg pain to the wound sites. She had an epidural yesterday with reduction of lower extremity pain noted. Her venous studies showed incompetent left SFJ. She will follow up with Dr. Pelaez regarding the results of this testing for possible procedure to address SFJ incompetence. She denies fever, chills, nausea , vomiting. She denies calf pain. She is with her today. She was diagnosed with calciphylaxis and had a biopsy of her legs skin to confirm this diagnosis and has seen fire and safety helper, Dr. Almonte. She continues with IV infusion of sodium thiosulfate for calciphylaxis treatment. She has been improving her offloading by avoiding direct pressure to the back of her legs. Progress of Wound: Improving - Physical Exam Vital Signs Temp Pulse Resp BP 97.3 F L 91 18 135/63 H 03/21/18 08:32 03/21/18 08:32 03/21/18 08:32 03/21/18 08:32 General: Alert, Oriented x3, Cooperative Extremities: No cyanosis, Capillary Refill Less than 3 Seconds, No Calf Tenderness - Negative Kimberly and Layton bilateral, Edema, Peripheral Pulses Normal Skin: Ulcer/ Wound - No purulence, no erythema, streaking, no odor, no infection bilateral. There is increased granulation tissue in the posterior right leg wound. The proximal satellite wounds on the right and left lower extremity had fibrous tissue with no exposed muscle or bone noted. The peripheral skin is atrophic. There is scant fibrous and scar tissue in the AP dimension wound beds that were debrided today. Wound Measurements and Assessment WC - Nurse 1 - General Ulcer Measurement Start: 03/07/18 14:44 Freq: Status: Active Protocol: Activity Type Activity Date Activity User E-Sign Co-Sign Detail Recorded Client Recorded Date Recorded By Document 03/21/18 08:32 [id number] 03/21/18 08:33 RB 03/21/18 08:32 Wound Center Nurse 1 [Ulcer Assessment] #4 Left calf -Exudate Amt Medium (34-66%) -Exudate Type Serosanguineous -Wound Margin Thickened & Rolled Under -Granulation Amt Medium (34-66%) -Granulation Quality [place] -Slough/Fibrin Yes -Necrosis Amt Small (1-33%) -Necrotic Tissue Type Adherent Slough -Structure Exposed N/A -Texture (Gabriella-wound Skin Appearance) Assessed -Moisture (Gabriella-wound Skin Appearance Assessed ) -Color (Gabriella-wound Skin Appearance) Erythema -Temperature (Gabriella-wound Skin No Abnormality Appearance) (Pt Warm) -Tenderness on Palpation (Gabriella-wound No Skin Appearance) #3 RIGHT MEDIAL LE CLUSTER -Combined with other wound No -Exudate Amt Medium (34-66%) -Exudate Type Serosanguineous -Wound Margin Thickened & Rolled Under -Granulation Amt Medium (34-66%) -Granulation Quality [place] -Necrosis Amt Small (1-33%) -Necrotic Tissue Type Adherent Slough -Structure Exposed N/A -Texture (Gabriella-wound Skin Appearance) Assessed -Moisture (Gabriella-wound Skin Appearance Assessed ) -Color (Gabriella-wound Skin Appearance) Erythema -Temperature (Gabriella-wound Skin No Abnormality Appearance) (Pt Warm) -Tenderness on Palpation (Gabriella-wound No Skin Appearance) [Edema Assessment] -Lower Limb Edema Present Yes -Right Calf (cm) 40 -Right Ankle (cm) 23.1 -Left Calf (cm) 35.5 -Left Ankle (cm) 22 03/21/18 08:35 Wound Center by Jeannie García pt has steristrips and theraskin intact veil and sterstrips left intact Initialized on 03/21/18 08:35 - END OF NOTE WC - Nurse 2 - General Ulcer CM Notes Start: 03/07/18 14:44 Freq: Status: Active Protocol: Activity Type Activity Date Activity User E-Sign Co-Sign Detail Recorded Client Recorded Date Recorded By Document 03/21/18 08:47 [id number] 03/21/18 09:08 03/21/18 08:47 Wound Center Nurse 2 [Procedure/Treatment] #6 LEFT MEDIAL SUPERIOR LEG -Time 09:05 -Correct Patient Yes -Correct Side, Site, Position Yes -Correct Procedure Yes -Procedure Performed Yes -Type of Procedure Debridement -Clinical Debridement Subcutaneous -Post Debridement Size (cm) - Length 1.0 -Post Debridement Size (cm) - Width 1.2 -Post Debridement Size (cm) - Depth 0.5 -Total Square Cm 1.20 -Wound/Ulcer Outcome Not Healed -Ulcer Cleansing Rinsed/ Irrigated with Saline -Foul Odor after Cleansing No -Bioengineered Tissue No -Bleeding Controlled with Pressure -Treatment Response Procedure Tolerated Well #5 RIGHT POSTERIOR CALF -Time 08:50 -Correct Patient Yes -Correct Side, Site, Position Yes -Correct Procedure Yes -Procedure Performed Yes -Type of Procedure Debridement -Clinical Debridement Subcutaneous -Post Debridement Size (cm) - Length 11.6 -Post Debridement Size (cm) - Width 5.9 -Post Debridement Size (cm) - Depth 0.3 -Total Square Cm 68.44 -Wound/Ulcer Outcome Not Healed -Ulcer Cleansing Rinsed/ Irrigated with Saline -Foul Odor after Cleansing No -Bioengineered Tissue No -Expiration Date 02/18/22 -Product Lot Number [id number] -Percent Used 100 -Saline Lot Number [id number] -Topical Lidocaine (%) 4 -Bleeding Controlled with Pressure -Other THERASKIN USED -Treatment Response Procedure Tolerated Well #4 Left calf -Time 08:48 -Correct Patient No -Correct Side, Site, Position No -Correct Procedure No -Procedure Performed No -Wound/Ulcer Outcome Not Healed -Other THERASKIN REMAINS IN PLACE #3 RIGHT MEDIAL LE CLUSTER -Time 08:48 -Correct Patient No -Correct Side, Site, Position No -Correct Procedure No -Procedure Performed No -Wound/Ulcer Outcome Not Healed -Other THERASKIN IN PLACE [See Physician Procedure note for Specifics] Pain Scale: 0-10 Numeric [Pain] -Is Patient Pain Free? Yes Musculoskeletal: No Tenderness to Palpation of Joints or Extremities, Tenderness - Wound manipulation., - - Compartments of lower extremities remain soft bilateral Neurological: Sensory exam intact to light touch and pain Psych/Mental Status: Normal Affect, Appropriate Debridement Note Post-Debridement Measurements/Treatment WC - Nurse 2 - General Ulcer CM Notes Start: 03/07/18 14:44 Freq: Status: Active Protocol: Activity Type Activity Date Activity User E-Sign Co-Sign Detail Recorded Client Recorded Date Recorded By Document 03/07/18 15:27 [id number] 03/07/18 15:31 Document 03/14/18 14:42 [id number] 03/14/18 14:55 Document 03/21/18 08:47 [id number] 03/21/18 09:08 03/07/18 03/14/18 03/21/18 15:27 14:42 08:47 Wound Center Nurse 2 #6 LEFT MEDIAL SUPERIOR LEG -Time 09:05 -Correct Patient Yes -Correct Side, Site, Position Yes -Correct Procedure Yes -Procedure Performed Yes -Type of Procedure Debridement -Clinical Debridement Subcutaneous -Post Debridement Size (cm) - Length 1.0 -Post Debridement Size (cm) - Width 1.2 -Post Debridement Size (cm) - Depth 0.5 -Total Square Cm 1.20 -Wound/Ulcer Outcome Not Healed -Ulcer Cleansing Rinsed/ Irrigated with Saline -Foul Odor after Cleansing No -Bioengineered Tissue No -Bleeding Controlled with Pressure -Treatment Response Procedure Tolerated Well #5 RIGHT POSTERIOR CALF -Time 08:50 -Correct Patient Yes -Correct Side, Site, Position Yes -Correct Procedure Yes -Procedure Performed Yes -Type of Procedure Debridement -Clinical Debridement Subcutaneous -Post Debridement Size (cm) - Length 11.6 -Post Debridement Size (cm) - Width 5.9 -Post Debridement Size (cm) - Depth 0.3 -Total Square Cm 68.44 -Wound/Ulcer Outcome Not Healed -Ulcer Cleansing Rinsed/ Irrigated with Saline -Foul Odor after Cleansing No -Bioengineered Tissue No -Expiration Date 11/12/21 -Product Lot Number [id number] -Percent Used 100 -Saline Lot Number [id number] -Topical Lidocaine (%) 4 -Bleeding Controlled with Pressure -Other THERASKIN USED -Treatment Response Procedure Tolerated Well #4 Left calf -Time 15:28 14:44 08:48 -Correct Patient Yes No -Correct Side, Site, Position Yes No -Correct Procedure Yes No -Procedure Performed Yes No -Type of Procedure Debridement -Clinical Debridement Subcutaneous -Post Debridement Size (cm) - Length 10.6 -Post Debridement Size (cm) - Width 6.1 -Post Debridement Size (cm) - Depth 0.5 -Total Square Cm 64.66 -Wound/Ulcer Outcome Not Healed Not Healed Not Healed -Ulcer Cleansing Rinsed/ Rinsed/ Irrigated with Irrigated with Saline Saline -Foul Odor after Cleansing No No -Bioengineered Tissue No No -Expiration Date 11/07/21 -Product Lot Number [id number] -Percent Used 100 -Saline Lot Number [id number] -Bleeding Controlled with Pressure NA Pressure -Other theraskin 1.2 x 1.6 x 0.[address] THER[address] HOLLAND IN [facility] PLACE level -Treatment Response Procedure Procedure Tolerated Well Tolerated Well #3 RIGHT MEDIAL LE CLUSTER -Time 15:29 14:47 08:48 -Correct Patient Yes Yes No -Correct Side, Site, Position Yes Yes No -Correct Procedure Yes Yes No -Procedure Performed Yes Yes No -Type of Procedure Debridement Debridement -Clinical Debridement Subcutaneous Subcutaneous -Post Debridement Size (cm) - Length 14 14.0 -Post Debridement Size (cm) - Width 21.2 7.2 -Post Debridement Size (cm) - Depth 0.6 0.2 -Total Square Cm 296.8 100.80 -Wound/Ulcer Outcome Not Healed Not Healed Not Healed -Ulcer Cleansing Rinsed/ Rinsed/ Irrigated with Irrigated with Saline Saline -Foul Odor after Cleansing No No -Bioengineered Tissue No No -Expiration Date 11/21/21 -Product Lot Number [id number] -Percent Used 100 -Saline Lot Number [id number] -Bleeding Controlled with Pressure Pressure -Other 20% of ulcer Theraskin THERASKIN IN debrided. PLACE -Treatment Response Procedure Procedure Tolerated Well Tolerated Well Pain Scale: 0-10 Numeric Is Patient Pain Free? Yes Yes Yes Wound debrided: proximal leg Laterality: Left Type of Debridement: Excisional debridement Anesthesia Used: 5% Lidocaine Gel Depth: in the subcutaneous layer Percentage of wound debrided: 100 Instrument Used: #15 blade, Forceps Tissue Removed: fibrous, devitalized subcutaneous, biofilm, slough, eschar Severity: Fat Layer Exposed Amount of bleeding with debridement: Mild Bleeding Controlled with: Pressure Patient tolerated procedure well - Additional Wound Wound debrided: proximal leg Laterality: Right Type of Debridement: Excisional debridement Anesthesia Used: 5% Lidocaine Gel Depth: in the subcutaneous layer Percentage of wound debrided: 100 Instrument Used: #15 blade, Forceps Tissue Removed: fibrous, devitalized subcutaneous, biofilm, slough, eschar Severity: Fat Layer Exposed Amount of bleeding with debridement: Mild Bleeding Controlled with: Pressure Patient tolerated procedure: Patient tolerated procedure well - Additional Wound Wound debrided: posterior lateral leg Laterality: Right Type of Debridement: Excisional debridement Anesthesia Used: 5% Lidocaine Gel Depth: in the subcutaneous layer Percentage of wound debrided: 100 Instrument Used: #15 blade, Forceps Tissue Removed: fibrous, devitalized subcutaneous, biofilm, slough Severity: Fat Layer Exposed Amount of bleeding with debridement: Mild Bleeding Controlled with: Pressure Patient tolerated procedure: Patient tolerated procedure well Assessment/Plan Active Problems (Last Reviewed 12/26/17 @ 10:27 by Huang Alvarado MD) Right leg pain (Chronic) Calciphylaxis (Chronic) Ulcer of left lower extremity with fat layer exposed (Chronic) Ulcer of right lower extremity with fat layer exposed (Chronic) Pain in right leg (Chronic) Pain in left leg (Chronic) Localized edema (Chronic) Diabetes mellitus (Chronic) Chronic kidney disease (Chronic) Assessment: Venous ulcers of b/l LE due to venous insufficiency. Delayed healing. venous insufficiency. Malnutrition suspected. Lower extremity pain. Differential diagnoses includes calciphylaxis. Multiple comorbidities noted. Calciphylaxis Plan: She was evaluated today and her care plan was discussed. She is amenable for debridement again today which was performed to the posterior right leg cluster site as well as the posterior left leg ulcer proximal site. The anterior right leg proximal was also debrided. All the theraskin sites were left intact today. Removal and re-debridement will be considered next week. After verbal consent and additional application of Thera skin was applied to the posterior lateral right leg. This was additionally secured in place with a wound veil and Steri-Strips. She tolerated this well. The indications, application process, and anticipated healing time management was discussed in detail. She is advised to keep that theraskin sites clean, dry, and intact until follow-up visit next week. She is advised to change the dressing every other day with hydrogel to the proximal right leg and and left leg wound otherwise she will keep the other parts of the dressings intact. Home health will help her with this once this upcoming week and she will do that the other day. She demonstrates understanding. To continue with light compression. She has a follow up with Dr. Pelaez for evaluation of her arterial Doppler exam which appeared to have distal perfusion. Her recent epidural application is noted. A biopsy of the legs skin was previously obtained and the results were reviewed today and will be placed in her chart. I reiterated the importance of taking pressure off of these wound sites. She was told by her doctor to stop taking glucerna as it had too much calcium. To only take nutritional supplementation but do not have additional calcium in them. To complete course of sodium thiosulfate for treatment of calciphylaxis as prescribed once a week for 1 month. to return to clinic in 2week at the wound care center or call sooner if she has any questions or concerns. To return to clinic in 1 week for nurse follow-up. She is to call if increased drainage or changes in wounds or if the patient or her has additional concerns or questions.
== END 2018-03-24 23:59 ==
LOC: WC 08:00
PROVIDERS: Family Provider Internal Medicine; PCP Internal Medicine; Visit Provider Podiatrist
DX: E11.622 Type 2 diabetes mellitus with other skin ulcer (principal); E11.22 Type 2 diabetes mellitus with diabetic chronic kidney disease; N18.9 Chronic kidney disease, unspecified; L97.812 Non-pressure chronic ulcer of other part of right lower leg with fat layer exposed; L97.822 Non-pressure chronic ulcer of other part of left lower leg with fat layer exposed; E83.59 Other disorders of calcium metabolism; I83.218 Varicose veins of right lower extremity with both ulcer of other part of lower extremity and inflammation; I83.228 Varicose veins of left lower extremity with both ulcer of other part of lower extremity and inflammation
CPT/HCPCS: 11042; 11045; 15271; Q4121

== ENCOUNTER → 2018-03-22 09:37 | Outpatient (CLI) | payer MEDICARE, SELFPAY ==
[2018-03-22 09:50] VITALS: BP 142/77; PULSE 79; RESP 16; TEMP 36.6; O2SAT 96
== END ==
PROVIDERS: Family Provider Internal Medicine; PCP Internal Medicine; Visit Provider Internal Medicine Nephrology
DX: E83.59 Other disorders of calcium metabolism (principal)
CPT/HCPCS: 96365; J7050; J3490

== ENCOUNTER → 2018-03-26 09:14 | Outpatient (CLI) | payer MEDICARE, SELFPAY ==
[2018-03-26 10:57] LABS: BUN 17 mg/dL (7-18); BUN/Creat Ratio 13.5 RATIO (10-20); Calcium,Total 9.1 mg/dL (8.5-10.1); Chloride 105 mmol/L (98-107); Creatinine, Serum 1.26 mg/dL (0.55-1.02); EST Glomerular Filtration Rate 44 mL/min (>60); Est Glom Filt Rate - Afr Amer 54 mL/min (>60); Glucose 138 mg/dL (74-106); Phosphorus 3.2 mg/dL (2.5-4.9); Potassium 3.7 mmol/L (3.5-5.1); Sodium Level 141 mmol/L (136-145)
== END ==
PROVIDERS: Family Provider Internal Medicine; PCP Internal Medicine; Visit Provider Internal Medicine Nephrology
DX: N18.3 Chronic kidney disease, stage 3 (moderate) (principal)
CPT/HCPCS: 36415; 80069

== ENCOUNTER → 2018-03-29 09:35 | Outpatient (CLI) | payer MEDICARE, SELFPAY ==
[2018-03-29 09:41] VITALS: BP 131/79; PULSE 87; RESP 16; TEMP 36.3; O2SAT 92; BMI 30.1
== END ==
PROVIDERS: Family Provider Internal Medicine; PCP Internal Medicine; Visit Provider Internal Medicine Nephrology
DX: E83.59 Other disorders of calcium metabolism (principal)
CPT/HCPCS: 96365; J7050; A4216; J3490

== ENCOUNTER → 2018-04-04 10:20 | Outpatient (CLI) | payer MEDICARE, SELFPAY ==
[2018-04-04 10:31] VITALS: BP 129/77; PULSE 87; RESP 18; TEMP 36.2; O2SAT 97; BMI 30.1
== END ==
PROVIDERS: Family Provider Internal Medicine; PCP Internal Medicine; Visit Provider Internal Medicine Nephrology
DX: E83.59 Other disorders of calcium metabolism (principal)
CPT/HCPCS: 96365; J7050; A4216; J3490

== ENCOUNTER 2018-04-08 12:36 | Emergency (ER) | payer MEDICARE, SELFPAY ==
[2018-04-08 12:38] VITALS: BP 135/86; PULSE 165; RESP 20; TEMP 36.6; O2SAT 96; BMI 29.2
--- NOTE | 2018-04-08 12:51 | RAD_ITS ---
STUDY: X-RAY CHEST REASON FOR EXAM: Female, 72 years old. Shortness of breath. TECHNIQUE: Frontal and lateral views of the chest. COMPARISON: December 08, 2017 FINDINGS: The right PICC catheter has been removed since the prior study. There is stable hyperexpansion with a mild interstitial pattern. There is no demonstrated pleural abnormality. There is cardiomegaly unchanged. Normal mediastinum and kenn. Normal visualized pulmonary arteries. Aortic tortuosity with calcification is stable. Normal visualized thoracic spine. Normal visualized ribs, clavicles, and shoulders. An electronic device is projected over the left upper quadrant of the abdomen and relatively unchanged. There are cholecystectomy clips. RAD/Chest PA and Lateral IMPRESSION: Cardiomegaly with hyperexpansion and mild diffuse interstitial pattern unchanged. No new or acute pathology. Electronically Signed: Emory Alvares MD at 14:22 EDT , Service support ,
--- NOTE | 2018-04-08 12:51 | EKG12_ITS ---
Test Reason : SOB Blood Pressure : / mmHG Vent. Rate : 098 BPM Atrial Rate : 141 BPM P-R Int : 000 ms QRS Dur : 082 ms QT Int : 368 ms P-R-T Axes : 000 059 -17 degrees QTc Int : 469 ms Atrial fibrillation Nonspecific ST abnormality Abnormal ECG Confirmed by MOODY BACON, ABISAI ([id number]), social media editor CARLENE NELSON ([id number]) on 04/10/2018 12:48:05 PM Referred By: PATRICIA Confirmed By:ABISAI URIOSTEGUI MD
[2018-04-08 12:56] VITALS: PULSE 88; RESP 16; O2SAT 96
[2018-04-08 13:00] VITALS: O2SAT 96
[2018-04-08 13:46] LABS: Absolute Lymphocyte Count 1.15 X10^3/ul (0.83-4.51); Absolute Neutrophil Count 3.7 X10^3/uL (2.0-7.7); Basophil# 0.01 X10^3/uL; Basophil% 0.2 % (0-1); Eosinophil# 0.02 X10^3/uL; Eosinophils% 0.4 % (0-5); Hematocrit 36.6 % (37-47); Hemoglobin 10.8 g/dl (12.0-15.0); Lymphocyte # 1.15 X10^3/ul (4.0); Lymphocyte % 20.7 % (19-41); Mean Corp Hgb Conc 29.5 g/gl (32-36); Mean Corpuscular Hgb 22.8 pg (27.0-32.0); Mean Corpuscular Volume 77.2 fL (81-99); Mean Platelet Vol. 10.1 fl (6.2-12.0); Monocyte# 0.67 X10^3/uL; Monocyte% 12.1 % (0-10); Neutrophil # 3.71 X10^3/uL (2.7-7.7); Neutrophil % 66.6 % (47-70); Platelet Count 175 K/mm3 (150-450); RBC Distribution Width CV 17.9 % (11.6-14.6); RBC Distribution Width SD 50.7 fl (35.1-43.9); Red Blood Count 4.74 M/mm3 (4.2-5.4); White Blood Count 5.6 K/mm3 (4.4-11.0)
[2018-04-08 13:47] LABS: POSITIVE COUNT NO; POSITIVE DIFFERENTIAL NO; POSITIVE MORPHOLOGY NO
[2018-04-08 14:12] LABS: BNP,B-Type NATRIURETIC PEPTIDE 270.3 pg/mL (0-100)
[2018-04-08 15:04] VITALS: BP 119/68; PULSE 87; RESP 17; O2SAT 97
--- NOTE | 2018-04-08 15:05 | ED.RN ---
green top drawn for the 3rd time.
--- NOTE | 2018-04-08 15:22 | ED.VISSUMM ---
- ER Visit Summary Date of Service: 04/08/18 Chief Complaint: Shortness of breath History of Present Illness: The patient is a 72 F who presents with shortness of breath, dyspnea on exertion. She states she has history of CHF and atrial fibrillation. She states her customer expert Dr. Epifanio Childers. She denies fever, chills night sweats. His weight gain or weight loss. She denies cough, orthopnea or PND. She denies any increased swelling of her lower extremity. There is no history of PE or DVT. She denies chest pain. She states she had palpitations. She denies nausea, vomiting diarrhea. She denies dysuria, frequency, urgency or hematuria. She denies myalgias, arthralgias or back pain. She denies any rash. She does report bruising secondary to Xarelto. Physical Examination: Vital signs are normal. She is not hypoxic. She is not febrile. Head is atraumatic normocephalic. Pupils are equal round reactive. Extraocular muscles are intact. TMs are pearly white with landmarks noted. Nares patent with no drainage. Posterior pharynx without erythema or exudate. Uvula is midline. There is no dysphonia or dysphasia. Trachea is midline. There is no stridor with auscultation of the neck. Heart is irregular with rales at the bases. Abdomen is soft nontender. There is 1+ pitting edema both lower extremities. There is no JVD or hepatojugular reflux. She is alert oriented ?3 with a nonfocal neurologic exam. There is no asymmetry, discoloration, leg vein distention or palpable cords. Test Results: EKG revealed a rate of 98. Atrial fibrillation with ossific ST-T wave changes unchanged from prior. CBC reveals mild anemia. Electronic panels unremarkable. Troponin is less than 0.015. Emergency Department Course and Treatment: To evaluate patient's dyspnea chest x-ray was obtained to evaluate for congestive heart failure versus pneumonia versus pneumothorax. EKG to rule out ischemia. CBC was obtained to evaluate for leukocytosis or anemia. Electronic panel to assess for any kidney failure or electrolyte normality and troponin because the dyspnea may represent anginal equivalent. Treatment Plan: Since patient's chest x-ray, EKG and workup other than mild anemia is not significant will discharge to follow-up with Dr. Childers her customer expert if no improvement in the next couple of days. She informed me that she has increased her Lasix to 1 a day. She was taking the Lasix every other day. Disposition: Discharged to home Impression: 1. Dyspnea of unknown etiology 2. History of CHF 3. Chronic A. fib on anticoagulation therapy 4. Bilateral chronic lymphedema 5. Anemia of chronic illness 6. History of type 2 diabetes This note was generated with [employer] dictation software. It may contain incorrect words, spelling, and punctuation that were not noted in review of the chart prior to signing ED Disposition - Plan for ED Patient: Disposition: Home or Assisted Living Chief Complaint: Shortness of Breath Instructions: ED Dyspnea Shortness of Breath Referrals: Aaron Tidwell MD [Primary Care Provider] - As Needed Epifanio Childers MD [STAFF PHYSICIAN] - 3-5 Days if not improving
[2018-04-08 15:25] LABS: Anion Gap 8 (5-15); BUN 14 mg/dL (7-18); BUN/Creat Ratio 14.4 RATIO (10-20); Calcium,Total 9.6 mg/dL (8.5-10.1); Chloride 103 mmol/L (98-107); Creatinine, Serum 0.97 mg/dL (0.55-1.02); EST Glomerular Filtration Rate 60 mL/min (>60); Est Glom Filt Rate - Afr Amer 72 mL/min (>60); Glucose 102 mg/dL (74-106); Potassium 3.4 mmol/L (3.5-5.1); Sodium Level 141 mmol/L (136-145)
--- NOTE | 2018-04-08 15:25 | ED.DCSUM_ITS ---
- ER Visit Summary Date of Service: 04/08/18 Chief Complaint: Shortness of breath History of Present Illness: The patient is a 72 F who presents with shortness of breath, dyspnea on exertion. She states she has history of CHF and atrial fibrillation. 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 Epifanio Chliders. She denies fever, chills night sweats. His weight gain or weight loss. She denies cough, orthopnea or PND. She denies any increased swelling of her lower extremity. There is no history of PE or DVT. She denies chest pain. She states she had palpitations. She denies nausea, vomiting diarrhea. She denies dysuria, frequency, urgency or hematuria. She denies myalgias, arthralgias or back pain. She denies any rash. She does report bruising secondary to Xarelto. Physical Examination: Vital signs are normal. She is not hypoxic. She is not febrile. Head is atraumatic normocephalic. Pupils are equal round reactive. Extraocular muscles are intact. TMs are pearly white with landmarks noted. Nares patent with no drainage. Posterior pharynx without erythema or exudate. Uvula is midline. There is no dysphonia or dysphasia. Trachea is midline. There is no stridor with auscultation of the neck. Heart is irregular with rales at the bases. Abdomen is soft nontender. There is 1+ pitting edema both lower extremities. There is no JVD or hepatojugular reflux. She is alert oriented ?3 with a nonfocal neurologic exam. There is no asymmetry, discoloration, leg vein distention or palpable cords. Test Results: EKG revealed a rate of 98. Atrial fibrillation with ossific ST-T wave changes unchanged from prior. CBC reveals mild anemia. Electronic panels unremarkable. Troponin is less than 0.015. Emergency Department Course and Treatment: To evaluate patient's dyspnea chest x -ray was obtained to evaluate for congestive heart failure versus pneumonia versus pneumothorax. EKG to rule out ischemia. CBC was obtained to evaluate for leukocytosis or anemia. Electronic panel to assess for any kidney failure or electrolyte normality and troponin because the dyspnea may represent anginal equivalent. Treatment Plan: Since patient's chest x-ray, EKG and workup other than mild anemia is not significant will discharge to follow-up with Dr. Childers her supervisor sterile processing if no improvement in the next couple of days. She informed me that she has increased her Lasix to 1 a day. She was taking the Lasix every other day. Disposition: Discharged to home Impression: 1. Dyspnea of unknown etiology 2. History of CHF 3. Chronic A. fib on anticoagulation therapy 4. Bilateral chronic lymphedema 5. Anemia of chronic illness 6. History of type 2 diabetes This note was generated with [employer] dictation software. It may contain incorrect words, spelling, and punctuation that were not noted in review of the chart prior to signing ED Disposition - Plan for ED Patient: Disposition: Home or Assisted Living Chief Complaint: Shortness of Breath Instructions: ED Dyspnea Shortness of Breath Referrals: Aaron Tidwell MD [Primary Care Provider] - As Needed Epifanio Childers MD [STAFF PHYSICIAN] - 3-5 Days if not improving
[2018-04-08 15:41] VITALS: BP 123/80; PULSE 83; RESP 20; O2SAT 97
== END 2018-04-08 16:00 | disposition home or self-care (01) ==
PROVIDERS: Emergency Provider Emergency Medicine; Family Provider Internal Medicine; PCP Internal Medicine
DX: R06.00 Dyspnea, unspecified (principal); I50.9 Heart failure, unspecified; I48.2 Chronic atrial fibrillation; I89.0 Lymphedema, not elsewhere classified; D63.8 Anemia in other chronic diseases classified elsewhere; E11.9 Type 2 diabetes mellitus without complications; F32.9 Major depressive disorder, single episode, unspecified; N18.6 End stage renal disease
CPT/HCPCS: 36415; 71046; 80048; 83880; 84484; 85025; 93005; 99285; A4216

== ENCOUNTER → 2018-04-09 08:01 | Outpatient (CLI) | payer MEDICARE, SELFPAY ==
--- NOTE | 2018-04-09 10:03 | RAD_ITS ---
STUDY: X-RAY CHEST REASON FOR EXAM: Female, 72 years old. PICC line placement. TECHNIQUE: Single AP portable view of the chest. COMPARISON: Comparison is made with prior examination dated April 08, 2018. FINDINGS: A right-sided PICC line catheter has been placed. The tip of the catheter is at the junction of the superior vena cava and right atrium. Stable increased markings in the right infrahilar region. There is no demonstrated pleural abnormality. There is mild cardiac enlargement. RAD/CXR for Line Placement IMPRESSION: The tip of the PICC line catheter is at the junction of the superior vena cava and right atrium. Electronically Signed: Carlos Cai MD at 10:53 EDT Tel [phone], Service support ,
[2018-04-09 10:48] VITALS: BP 132/73; PULSE 85; RESP 18; TEMP 36.3; O2SAT 97; BMI 29.0
== END ==
PROVIDERS: Family Provider Internal Medicine; PCP Internal Medicine; Visit Provider Internal Medicine Nephrology
DX: E83.59 Other disorders of calcium metabolism (principal); Z45.2 Encounter for adjustment and management of vascular access device
CPT/HCPCS: 96365; 36569; 71045; J7050; A4216; C1751; J3490

== ENCOUNTER → 2018-04-10 10:49 | Outpatient (CLI) | payer MEDICARE, SELFPAY | PROVIDERS: Family Provider Internal Medicine; PCP Internal Medicine; Visit Provider Internal Medicine Nephrology | DX: Z45.2 Encounter for adjustment and management of vascular access device (principal) | CPT/HCPCS: A4216 ==

== ENCOUNTER 2018-04-11 10:45 | Outpatient (RCR) | payer MEDICARE, SELFPAY ==
[2018-03-25 00:33] VITALS: BP 135/63; PULSE 91; RESP 18; TEMP 36.3; BMI 35.4
[2018-04-04 12:52] VITALS: BP 142/64; PULSE 83; RESP 20; TEMP 36.3; BMI 35.4
[2018-04-11 10:53] VITALS: BP 116/74; PULSE 96; RESP 18; TEMP 36.5; BMI 35.4
--- NOTE | 2018-04-11 20:34 | PN.PCM_ITS ---
(1) Right leg pain Status: Chronic Current Visit: Yes Code(s): M79.604 - Pain in right leg (2) Calciphylaxis Status: Chronic Current Visit: Yes Code(s): E83.59 - Other disorders of calcium metabolism (3) Ulcer of left lower extremity with fat layer exposed Status: Chronic Current Visit: Yes Code(s): L97.922 - Non-pressure chronic ulcer of unspecified part of left lower leg with fat layer exposed (4) Ulcer of right lower extremity with fat layer exposed Status: Chronic Current Visit: Yes Code(s): L97.912 - Non-pressure chronic ulcer of unspecified part of right lower leg with fat layer exposed (5) Pain in left leg Status: Chronic Current Visit: Yes Code(s): M79.605 - Pain in left leg (6) Delayed wound healing Status: Chronic Current Visit: Yes Code(s): T14.8XXD - Other injury of unspecified body region, subsequent encounter (7) Localized edema Status: Chronic Current Visit: Yes Code(s): R60.0 - Localized edema Type of Wound Date of Service: 04/12/18 Chief Complaint: Wounds/ulcers of b/l lower legs History of Wound: Di is a 72 year old female that returns for follow up of bilateral leg ulcers. She has been changing the dressings every other day and denies odor or redness to either limb. She had several theraskin applications applied. She has tapered off of prednisone and has increased leg pain to the wound sites. She had an epidural previously with reduction of lower extremity pain noted. She follows with Dr. Carbajal with pain management. Her venous studies showed incompetent left SFJ. She will follow up with Dr. Pelaez regarding the results of this testing for possible procedure to address SFJ incompetence. She denies fever, chills, nausea, vomiting. She denies calf pain. She is with her today. She was diagnosed with calciphylaxis and had a biopsy of her legs skin to confirm this diagnosis and has seen tennis court attendant, Dr. Almonte. She continues with IV infusion of sodium thiosulfate for calciphylaxis treatment. She has been improving her offloading by avoiding direct pressure to the back of her legs. She changes dressings at home is advised. Progress of Wound: Improving - Physical Exam Vital Signs Temp Pulse Resp BP 97.7 F L 96 18 116/74 04/11/18 10:53 04/11/18 10:53 04/11/18 10:53 04/11/18 10:53 General: Alert, Oriented x3, Cooperative Extremities: No cyanosis, Capillary Refill Less than 3 Seconds, No Calf Tenderness - Negative Kimberly and Layton sign bilateral, Diminished Peripheral Pulses, Edema, Tenderness - Tenderness to palpation all wound sites Skin: Ulcer/ Wound - No purulence, no erythema, streaking, odor, no infection bilateral lower extremities. There is scant eschar formation continued in the wounds. The proximal right and left leg wounds appear to be deep with fibrous devitalized tissue with subtle increase in granulation tissue more notable in the left limb. The theraskin cryopreserved skin graft is in place to the wound veil and Steri-Strips to the lateral left leg and the medial right leg. Upon her movement of no longer adherent and partially incorporated cryopreserved skin to the lateral posterior right leg there is improved granulation tissue noted., - - Bilateral legs skin is atrophic and hairless with some induration unchanged from previous visit Wound Measurements and Assessment WC - Nurse 1 - General Ulcer Measurement Start: 04/04/18 12:52 Freq: Status: Active Protocol: Activity Type Activity Date Activity User E-Sign Co-Sign Detail Recorded Client Recorded Date Recorded By Document 04/11/18 10:53 DL [id number] 04/11/18 10:56 DL 04/11/18 10:53 Wound Center Nurse 1 [Ulcer Assessment] #7 right anterior proximal LE -Combined with other wound No -Current Size (cm) - Length 2.5 -Current Size (cm) - Width 1.6 -Current Size (cm) - Depth 0.2 -Total Square Cm 4.00 -Photo Taken No -Epithelialization None Present -Tunneling No -Undermining/Tunneling No -Circular Undermining No -Classification - Thickness Full Thickness without Exposed Support Structure -Exudate Amt Medium (34-66%) -Exudate Type Yellow/Green -Wound Margin Fibrotic Scar, Thickened Scar -Granulation Amt Small (1-33%) -Granulation Quality Red -Slough/Fibrin Yes -Necrosis Amt Large (67-100%) -Necrotic Tissue Type Adherent Slough -Structure Exposed Fascia Fat Layer Exposed -Texture (Gabriella-wound Skin Appearance) Scarring -Moisture (Gabrielal-wound Skin Appearance No Abnormality ) -Color (Gabriella-wound Skin Appearance) Assessed Erythema -Temperature (Gabriella-wound Skin No Abnormality Appearance) (Pt Warm) -Tenderness on Palpation (Gabriella-wound No Skin Appearance) -Ulcer Cleansing Rinsed/ Irrigated with Saline -Foul Odor after Cleansing No -Anesthetic Used 5% Lidocaine Gel #6 LEFT medial proximal LEG -Combined with other wound No -Current Size (cm) - Length 1.1 -Current Size (cm) - Width 1.0 -Current Size (cm) - Depth 0.7 -Total Square Cm 1.10 -Photo Taken No -Epithelialization None Present -Tunneling No -Undermining/Tunneling No -Circular Undermining No -Classification - Thickness Full Thickness without Exposed Support Structure -Exudate Amt Large (67-100%) -Exudate Type Yellow/Green -Wound Margin Distinct, Outline Attached -Granulation Amt None Present (0 %) -Granulation Quality N/A -Slough/Fibrin Yes -Necrosis Amt Large (67-100%) -Necrotic Tissue Type Adherent Slough -Structure Exposed Fascia Fat Layer Exposed -Texture (Gabriella-wound Skin Appearance) Assessed Scarring -Moisture (Gabriella-wound Skin Appearance No Abnormality ) -Color (Gabriella-wound Skin Appearance) Erythema -Temperature (Gabriella-wound Skin No Abnormality Appearance) (Pt Warm) -Ulcer Cleansing Wound Cleanser -Foul Odor after Cleansing No -Anesthetic Used 5% Lidocaine Gel #5 RIGHT medial CALF -Combined with other wound No -Photo Taken No -Tunneling No -Undermining/Tunneling No -Circular Undermining No -Classification - Thickness Full Thickness without Exposed Support Structure -Exudate Amt Large (67-100%) -Exudate Type Yellow/Green -Wound Margin Fibrotic Scar, Thickened Scar -Granulation Amt None Present (0 %) -Granulation Quality N/A -Slough/Fibrin Yes -Necrosis Amt Large (67-100%) -Necrotic Tissue Type Adherent Slough -Structure Exposed Fascia Fat Layer Exposed -Texture (Gabriella-wound Skin Appearance) Assessed Scarring -Moisture (Gabriella-wound Skin Appearance No Abnormality ) -Color (Gabriella-wound Skin Appearance) Assessed Erythema -Temperature (Gabriella-wound Skin No Abnormality Appearance) (Pt Warm) -Tenderness on Palpation (Gabriella-wound Yes Skin Appearance) -Foul Odor after Cleansing Yes, Due to Product Use #4 Left lateral calf -Combined with other wound No -Photo Taken No -Epithelialization None Present -Tunneling No -Undermining/Tunneling No -Circular Undermining No -Classification - Thickness Full Thickness without Exposed Support Structure -Exudate Amt Medium (34-66%) -Exudate Type Yellow/Green -Wound Margin Fibrotic Scar, Thickened Scar -Granulation Amt None Present (0 %) -Granulation Quality N/A -Slough/Fibrin Yes -Necrosis Amt Large (67-100%) -Necrotic Tissue Type Adherent Slough -Structure Exposed Fascia Fat Layer Exposed -Texture (Gabriella-wound Skin Appearance) Assessed Scarring -Moisture (Gabriella-wound Skin Appearance No Abnormality ) -Color (Gabriella-wound Skin Appearance) Assessed Erythema -Temperature (Gabriella-wound Skin No Abnormality Appearance) (Pt Warm) -Tenderness on Palpation (Gabriella-wound Yes Skin Appearance) -Foul Odor after Cleansing Yes, Due to Product Use #3 RIGHT posterior lateral LE CLUSTER -Combined with other wound No -Current Size (cm) - Length 13.4 -Current Size (cm) - Width 12.4 -Current Size (cm) - Depth 0.3 -Total Square Cm 166.16 -Photo Taken No -Epithelialization Small 1-33% -Tunneling No -Undermining/Tunneling No -Circular Undermining No -Classification - Thickness Full Thickness without Exposed Support Structure -Exudate Amt Large (67-100%) -Exudate Type Yellow/Green -Wound Margin Fibrotic Scar, Thickened Scar -Granulation Amt Small (1-33%) -Granulation Quality [place] -Slough/Fibrin Yes -Necrosis Amt Large (67-100%) -Necrotic Tissue Type Adherent Slough -Structure Exposed Fascia Fat Layer Exposed -Texture (Gabriella-wound Skin Appearance) Assessed Scarring -Moisture (Gabriella-wound Skin Appearance No Abnormality ) -Color (Gabriella-wound Skin Appearance) Assessed Erythema -Tenderness on Palpation (Gabriella-wound Yes Skin Appearance) -Ulcer Cleansing Wound Cleanser -Foul Odor after Cleansing No -Anesthetic Used 5% Lidocaine Gel [Edema Assessment] -Lower Limb Edema Present Yes -Right Calf (cm) 36.2 -Right Ankle (cm) 23.3 -Left Calf (cm) 33.8 -Left Ankle (cm) 20.0 WC - Nurse 2 - General Ulcer CM Notes Start: 04/04/18 12:52 Freq: Status: Active Protocol: Activity Type Activity Date Activity User E-Sign Co-Sign Detail Recorded Client Recorded Date Recorded By Document 04/11/18 12:26 TM [id number] 04/11/18 12:38 TM 04/11/18 12:26 Wound Center Nurse 2 [Procedure/Treatment] #7 right anterior proximal LE -Time 18:43 -Correct Patient Yes -Correct Side, Site, Position Yes -Correct Procedure Yes -Procedure Performed Yes -Type of Procedure Debridement -Clinical Debridement Subcutaneous -Post Debridement Size (cm) - Length 2.6 -Post Debridement Size (cm) - Width 1.7 -Post Debridement Size (cm) - Depth 0.2 -Total Square Cm 4.42 -Wound/Ulcer Outcome Not Healed -Ulcer Cleansing Rinsed/ Irrigated with Saline -Foul Odor after Cleansing No -Bioengineered Tissue No -Topical Lidocaine (%) 5 -Bleeding Controlled with Pressure -Treatment Response Procedure Tolerated Well #6 LEFT medial proximal LEG -Time 12:26 -Correct Patient Yes -Correct Side, Site, Position Yes -Correct Procedure Yes -Procedure Performed Yes -Type of Procedure Debridement -Clinical Debridement Subcutaneous -Post Debridement Size (cm) - Length 1.2 -Post Debridement Size (cm) - Width 1.1 -Post Debridement Size (cm) - Depth 0.7 -Total Square Cm 1.32 -Wound/Ulcer Outcome Not Healed -Ulcer Cleansing Rinsed/ Irrigated with Saline -Foul Odor after Cleansing No -Bioengineered Tissue No -Bleeding Controlled with Pressure -Other no debridement -Treatment Response Procedure Tolerated Well #5 RIGHT medial CALF -Time 12:29 -Correct Patient Yes -Correct Side, Site, Position Yes -Correct Procedure Yes -Procedure Performed Yes -Wound/Ulcer Outcome Not Healed -Ulcer Cleansing Rinsed/ Irrigated with Saline -Foul Odor after Cleansing No -Bioengineered Tissue No -Bleeding Controlled with NA Pressure -Other no debridement today -Treatment Response Procedure Tolerated Well #4 Left lateral calf -Time 12:30 -Correct Patient Yes -Correct Side, Site, Position Yes -Correct Procedure Yes -Procedure Performed Yes -Wound/Ulcer Outcome Not Healed -Ulcer Cleansing Rinsed/ Irrigated with Saline -Foul Odor after Cleansing No -Bioengineered Tissue No -Bleeding Controlled with NA -Other no debridement today -Treatment Response Procedure Tolerated Well #3 RIGHT posterior lateral LE CLUSTER -Time 12:30 -Correct Patient Yes -Correct Side, Site, Position Yes -Correct Procedure Yes -Procedure Performed Yes -Type of Procedure Debridement -Clinical Debridement Subcutaneous -Post Debridement Size (cm) - Length 13.5 -Post Debridement Size (cm) - Width 12.5 -Post Debridement Size (cm) - Depth 0.3 -Total Square Cm 168.75 -Wound/Ulcer Outcome Not Healed -Ulcer Cleansing Rinsed/ Irrigated with Saline -Foul Odor after Cleansing No -Expiration Date 08/11/21 -Product Lot Number [id number] -Percent Used 100 -Saline Lot Number [id number] -Topical Lidocaine (%) 5 -Bleeding Controlled with Pressure -Other theraskin #7 covered with adaptic secured with wound veil -Treatment Response Procedure Tolerated Well [See Physician Procedure note for Specifics] Pain Scale: 0-10 Numeric [Pain] -Is Patient Pain Free? Yes Musculoskeletal: No Tenderness to Palpation of Joints or Extremities, Muscle Wasting, - - Compartments bilateral lower extremity remain soft. Active range of motion toes noted bilateral Neurological: Sensory exam intact to light touch and pain Psych/Mental Status: Normal Affect, Appropriate Debridement Note Post-Debridement Measurements/Treatment WC - Nurse 2 - General Ulcer CM Notes Start: 04/04/18 12:52 Freq: Status: Active Protocol: Activity Type Activity Date Activity User E-Sign Co-Sign Detail Recorded Client Recorded Date Recorded By Document 04/04/18 13:35 [id number] 04/04/18 13:42 TM Document 04/11/18 12:26 [id number] 04/11/18 12:38 TM 04/04/18 04/11/18 13:35 12:26 Wound Center Nurse 2 #7 right anterior proximal LE -Time 18:43 -Correct Patient Yes -Correct Side, Site, Position Yes -Correct Procedure Yes -Procedure Performed Yes -Type of Procedure Debridement -Clinical Debridement Subcutaneous -Post Debridement Size (cm) - Length 2.6 -Post Debridement Size (cm) - Width 1.7 -Post Debridement Size (cm) - Depth 0.2 -Total Square Cm 4.42 -Wound/Ulcer Outcome Not Healed -Ulcer Cleansing Rinsed/ Irrigated with Saline -Foul Odor after Cleansing No -Bioengineered Tissue No -Topical Lidocaine (%) 5 -Bleeding Controlled with Pressure -Treatment Response Procedure Tolerated Well #6 LEFT medial proximal LEG -Time 13:37 12:26 -Correct Patient Yes Yes -Correct Side, Site, Position Yes Yes -Correct Procedure Yes Yes -Procedure Performed Yes Yes -Type of Procedure Debridement Debridement -Clinical Debridement Subcutaneous Subcutaneous -Post Debridement Size (cm) - Length 1.1 1.2 -Post Debridement Size (cm) - Width 1.1 1.1 -Post Debridement Size (cm) - Depth 0.3 0.7 -Total Square Cm 1.21 1.32 -Wound/Ulcer Outcome Not Healed Not Healed -Ulcer Cleansing Rinsed/ Rinsed/ Irrigated with Irrigated with Saline Saline -Foul Odor after Cleansing No No -Bioengineered Tissue No No -Bleeding Controlled with Pressure Pressure -Other no debridement -Treatment Response Procedure Procedure Tolerated Well Tolerated Well #5 RIGHT medial CALF -Time 13:37 12:29 -Correct Patient Yes Yes -Correct Side, Site, Position Yes Yes -Correct Procedure Yes Yes -Procedure Performed Yes Yes -Type of Procedure Debridement -Clinical Debridement Subcutaneous -Post Debridement Size (cm) - Length 1.7 -Post Debridement Size (cm) - Width 1.4 -Post Debridement Size (cm) - Depth 0.2 -Total Square Cm 2.38 -Wound/Ulcer Outcome Not Healed Not Healed -Ulcer Cleansing Rinsed/ Rinsed/ Irrigated with Irrigated with Saline Saline -Foul Odor after Cleansing No No -Bioengineered Tissue No No -Bleeding Controlled with Pressure NA Pressure -Other no debridement today -Treatment Response Procedure Procedure Tolerated Well Tolerated Well #4 Left lateral calf -Time 13:39 12:30 -Correct Patient Yes Yes -Correct Side, Site, Position Yes Yes -Correct Procedure Yes Yes -Procedure Performed Yes Yes -Type of Procedure Debridement -Clinical Debridement Subcutaneous -Post Debridement Size (cm) - Length 6.4 -Post Debridement Size (cm) - Width 6.5 -Post Debridement Size (cm) - Depth 0.3 -Total Square Cm 41.60 -Wound/Ulcer Outcome Not Healed Not Healed -Ulcer Cleansing Rinsed/ Rinsed/ Irrigated with Irrigated with Saline Saline -Foul Odor after Cleansing No No -Bioengineered Tissue No No -Expiration Date 11/22/21 -Product Lot Number [id number] -Percent Used 100 -Saline Lot Number [id number] -Topical Lidocaine (%) 5 -Bleeding Controlled with Pressure NA -Other theraskin #6 no debridement today -Treatment Response Procedure Procedure Tolerated Well Tolerated Well #3 RIGHT posterior lateral LE CLUSTER -Time 13:38 12:30 -Correct Patient Yes Yes -Correct Side, Site, Position Yes Yes -Correct Procedure Yes Yes -Procedure Performed Yes Yes -Type of Procedure Debridement -Clinical Debridement Subcutaneous -Post Debridement Size (cm) - Length 13.5 -Post Debridement Size (cm) - Width 12.5 -Post Debridement Size (cm) - Depth 0.3 -Total Square Cm 168.75 -Wound/Ulcer Outcome Not Healed Not Healed -Ulcer Cleansing Rinsed/ Rinsed/ Irrigated with Irrigated with Saline Saline -Foul Odor after Cleansing No No -Bioengineered Tissue No -Expiration Date 08/11/21 -Product Lot Number [id number] -Percent Used 100 -Saline Lot Number [id number] -Topical Lidocaine (%) 5 -Bleeding Controlled with NA Pressure -Other no debridement theraskin #7 today covered with adaptic secured with wound veil -Treatment Response Procedure Procedure Tolerated Well Tolerated Well Pain Scale: 0-10 Numeric Is Patient Pain Free? Yes Yes Wound debrided: posterior lateral cluster Laterality: Right Type of Debridement: Excisional debridement Anesthesia Used: 5% Lidocaine Gel Depth: in the subcutaneous layer Percentage of wound debrided: 100 Instrument Used: #15 blade, Forceps Tissue Removed: devitalized subcutaneous, biofilm, slough, fibrous Severity: Fat Layer Exposed Amount of bleeding with debridement: Mild Bleeding Controlled with: Pressure Patient tolerated procedure well - Additional Wound Wound debrided: medial leg Laterality: Right Patient tolerated procedure: - - Not debrided, theras remains intact with a wound veil and Steri-Stripskin - Additional Wound Wound debrided: calf lateral Laterality: Left Patient tolerated procedure: - - Not debrided, ther remains intact with a wound veil and Steri-Stripsaskin - Additional Wound Wound debrided: proximal leg Laterality: Right Type of Debridement: Excisional debridement Anesthesia Used: 5% Lidocaine Gel Depth: in the subcutaneous layer Percentage of wound debrided: 100 Instrument Used: #15 blade, Forceps Tissue Removed: devitalized subcutaneous, biofilm, slough, fibrous Amount of bleeding with debridement: Mild Bleeding Controlled with: Pressure Patient tolerated procedure: Patient tolerated procedure well - Additional Wound Wound debrided: proximal leg Laterality: Left Type of Debridement: Excisional debridement Anesthesia Used: 5% Lidocaine Gel Depth: in the subcutaneous layer Percentage of wound debrided: 100 Instrument Used: #15 blade, Forceps Tissue Removed: devitalized subcutaneous, biofilm, slough, fibrous Severity: Fat Layer Exposed Amount of bleeding with debridement: Mild Bleeding Controlled with: Pressure Patient tolerated procedure: Patient tolerated procedure well Assessment/Plan Active Problems (Last Reviewed 04/12/18 @ 09:32 by Gi Ruiz) Right leg pain (Chronic) Calciphylaxis (Chronic) Ulcer of left lower extremity with fat layer exposed (Chronic) Ulcer of right lower extremity with fat layer exposed (Chronic) Pain in left leg (Chronic) Delayed wound healing (Chronic) Localized edema (Chronic) Assessment: Venous ulcers of b/l LE due to venous insufficiency. Delayed healing. venous insufficiency. Malnutrition suspected. Lower extremity pain. Differential diagnoses includes calciphylaxis. Multiple comorbidities noted. Calciphylaxis Plan: She was evaluated today and her care plan was discussed. She is amenable for debridement again today which was performed to the posterior and lateral right leg cluster site as well as the proximal right and left leg ulcer sites. the theraskin sites were left intact today to the medial anterior right leg as well as the posterior lateral left leg. After verbal consent and additional application of Thera skin was applied to the lateral right leg. This was additionally secured in place with a wound veil and Steri-Strips. She tolerated this well. The indications, application process, and anticipated healing time management was discussed in detail. She is advised to keep that theraskin sites clean, dry, and intact until follow-up visit next week. She is advised to change the dressing every other day with saline moistened gauze to pack into the proximal right leg and and left leg wound otherwise she will keep the other parts of the dressings intact. Home health will help her with this once this upcoming week and she will do that the other day. She demonstrates understanding. To continue with light compression. She has a follow up with Dr. Pelaez for evaluation of her arterial Doppler exam which appeared to have distal perfusion. A biopsy of the legs skin was previously obtained and the results were reviewed today and will be placed in her chart. I reiterated the importance of taking pressure off of these wound sites. She was told by her doctor to stop taking glucerna as it had too much calcium. To only take nutritional supplementation but do not have additional calcium in them. To complete course of sodium thiosulfate for treatment of calciphylaxis as prescribed once a week for 1 month. to return to clinic in 1 week at the wound care center or call sooner if she has any questions or concerns. She is to call if increased drainage or changes in wounds or if the patient or her has additional concerns or questions.
== END 2018-04-24 23:59 ==
LOC: WC 10:45
PROVIDERS: Family Provider Internal Medicine; PCP Internal Medicine; Visit Provider Podiatrist
DX: I73.9 Peripheral vascular disease, unspecified (principal); L97.812 Non-pressure chronic ulcer of other part of right lower leg with fat layer exposed; L97.822 Non-pressure chronic ulcer of other part of left lower leg with fat layer exposed; R60.0 Localized edema; E83.59 Other disorders of calcium metabolism

== ENCOUNTER → 2018-04-12 10:12 | Outpatient (CLI) | payer MEDICARE, SELFPAY ==
[2018-04-12 10:53] VITALS: BP 115/78; PULSE 74; RESP 16; TEMP 36; BMI 28.1
== END ==
PROVIDERS: Family Provider Internal Medicine; PCP Internal Medicine; Visit Provider Internal Medicine Nephrology
DX: E83.59 Other disorders of calcium metabolism (principal)
CPT/HCPCS: 96365; J7050; A4216; J3490

== ENCOUNTER → 2018-04-16 09:44 | Outpatient (CLI) | payer MEDICARE, SELFPAY ==
[2018-04-16 10:06] VITALS: BP 133/78; PULSE 90; RESP 18; TEMP 36.4; O2SAT 98
== END ==
PROVIDERS: Family Provider Internal Medicine; PCP Internal Medicine; Visit Provider Internal Medicine Nephrology
DX: E83.59 Other disorders of calcium metabolism (principal)
CPT/HCPCS: 96365; J7050; A4216

== ENCOUNTER 2018-04-18 08:56 | Outpatient (RCR) | payer MEDICARE, SELFPAY ==
[2018-03-25 00:55] VITALS: PULSE 90; RESP 18; TEMP 36.1
--- NOTE | 2018-04-04 13:54 | PN.PCM_ITS ---
(1) Ulcer of left lower extremity with fat layer exposed Status: Chronic Code(s): L97.922 - Non-pressure chronic ulcer of unspecified part of left lower leg with fat layer exposed (2) Ulcer of right lower extremity with fat layer exposed Status: Chronic Code(s): L97.912 - Non-pressure chronic ulcer of unspecified part of right lower leg with fat layer exposed (3) Right leg pain Status: Chronic Code(s): M79.604 - Pain in right leg (4) Calciphylaxis Status: Chronic Code(s): E83.59 - Other disorders of calcium metabolism (5) Pain in left leg Status: Chronic Code(s): M79.605 - Pain in left leg (6) Delayed wound healing Status: Chronic Code(s): T14.8XXD - Other injury of unspecified body region, subsequent encounter (7) Localized edema Status: Chronic Code(s): R60.0 - Localized edema Type of Wound Date of Service: 04/04/18 Chief Complaint: Wounds/ulcers of b/l lower legs History of Wound: Di is a 72 year old female that returns for follow up of bilateral leg ulcers. She has been changing the dressings every other day and denies odor or redness to the left limb. Home health is helping her change the dressings on Monday. She had several theraskin applications applied. she follows with Dr. carbajal (pain management). She relates her morphine is about to run out. Her venous studies showed incompetent left SFJ. She will follow up with Dr. Pelaez regarding the results of this testing for possible procedure to address SFJ incompetence. She denies fever, chills, nausea, vomiting. She denies calf pain. She is with her today. She was diagnosed with calciphylaxis and had a biopsy of her legs skin to confirm this diagnosis and has seen offshoring manager, Dr. Almonte. She elected to decrease her phosphorus and calcium intake through her diet. She will start a biweekly administration for two months and is scheduled to get a Picc line placed. She has been improving her offloading by avoiding direct pressure to the back of her legs. Progress of Wound: Improving - Physical Exam Vital Signs Temp Pulse Resp 97 F L 90 18 03/25/18 00:55 03/25/18 00:55 03/25/18 00:55 General: Alert, Oriented x3, Cooperative HEENT: Atraumatic Extremities: No cyanosis, Capillary Refill Less than 3 Seconds, No Calf Tenderness - Negative Kimberly and Layton sign bilateral, Diminished Peripheral Pulses, Edema - Bilateral lower extremities Skin: Ulcer/ Wound - No purulence, no erythema, streaking, no odor, no infection bilateral lower extremities. There is no new necrosis noted. There is peripheral wound inflammation including some minor hyperpigmentation and edema and this is consistent with her previous exams. There is no odor bilateral there is increased granulation tissue to the left leg. The proximal right and left leg ulcers has mainly fibrous tissue and there is minimal amount of eschar to the right proximal, - - peripheral skin is atrophic Musculoskeletal: No Tenderness to Palpation of Joints or Extremities, Muscle Wasting Neurological: Sensory exam intact to light touch and pain Psych/Mental Status: Normal Affect, Appropriate Debridement Note Wound debrided: proximal leg Laterality: Right Type of Debridement: Excisional debridement Anesthesia Used: 5% Lidocaine Gel Depth: in the subcutaneous layer Percentage of wound debrided: 100 Instrument Used: #15 blade Tissue Removed: fibrous, devitalized subcutaneous, biofilm, slough Severity: Fat Layer Exposed Amount of bleeding with debridement: Mild Bleeding Controlled with: Pressure Patient tolerated procedure well - Pre-debridement 1.6 x 1.3 x 0.2 cm and post debridement 1.7 x 1.4 x 0.2 cm - Additional Wound Wound debrided: proximal leg Laterality: Left Type of Debridement: Excisional debridement Anesthesia Used: 5% Lidocaine Gel Depth: in the subcutaneous layer Percentage of wound debrided: 100 Instrument Used: #15 blade Tissue Removed: fibrous, devitalized subcutaneous, biofilm, slough Severity: Fat Layer Exposed Amount of bleeding with debridement: Mild Bleeding Controlled with: Pressure Patient tolerated procedure: Patient tolerated procedure well - Pre-debridement 1.0 x 1.0 x 0.3 cm and post debridement 1.1 x 1.1 x 0.3 cm - Additional Wound Wound debrided: lateral posterior leg Laterality: Left Type of Debridement: Excisional debridement Anesthesia Used: 5% Lidocaine Gel Depth: in the subcutaneous layer Percentage of wound debrided: 100 Instrument Used: #15 blade, Forceps Tissue Removed: fibrous, devitalized subcutaneous, biofilm, slough Severity: Fat Layer Exposed Amount of bleeding with debridement: Mild Bleeding Controlled with: Pressure Patient tolerated procedure: Patient tolerated procedure well Assessment/Plan Assessment: Venous ulcers of b/l LE due to venous insufficiency with fat layer is exposed. Delayed healing. venous insufficiency. Malnutrition suspected. Lower extremity pain. Differential diagnoses includes calciphylaxis. Multiple comorbidities noted. Calciphylaxis Plan: She was evaluated today in her care plan was discussed. She is amenable for debridement again today which was performed to the posterior right and left leg sites as well as the posterior lateral left leg.. The anterior and medial right leg sites were kept intact with a wound veil and Steri-Strips. A fresh wound veil and Steri-Strips were applied because the other ones were too moist. Subcutaneous debridement was performed as noted in the clinical panel to bilateral lower extremities. She tolerated this well. Theraskin which is a cryopreserved skin donation application was performed to the posterior lateral left leg and ordered again for application next week. The indications, application process, and anticipated healing time management was discussed in detail. She tolerated this well. Debridement was performed, saline irrigation was done, and pressure was applied to maintain hemostasis prior to application. She is advised to keep this clean, dry, and intact until follow- up visit next week. She is advised to change the dressing every other day with saline with 4 x 4 gauze to the proximal right and left leg wounds; otherwise she will keep the other parts of the dressings intact. She demonstrates understanding. To continue with light compression. She has a follow up with Dr. Pelaez for evaluation of her arterial Doppler exam which appeared to have distal perfusion. Continue to follow up with Dr. Carbajal as scheduled for pain management and dermatology as advised. A biopsy of the leg skin was obtained and the results were reviewed today and will be placed in her chart. I reiterated the importance of taking pressure off of these wound sites. She was told by her doctor to stop taking glucerna as it had too much calcium. To only take nutritional supplementation but do not have additional calcium in them. To complete course of sodium thiosulfate for treatment of calciphylaxis as prescribed for an additional 2 months; a PICC line will be placed soon. to return to clinic in 1 week at the wound care center or call sooner if she has any questions or concerns. She is to call if increased drainage or changes in wounds or if the patient or her has additional concerns or questions.
[2018-04-18 09:39] VITALS: BP 123/64; PULSE 83; RESP 16; TEMP 36.2
--- NOTE | 2018-04-18 11:33 | PN.PCM_ITS ---
(1) Ulcer of left lower extremity with fat layer exposed Status: Chronic Current Visit: Yes Code(s): L97.922 - Non-pressure chronic ulcer of unspecified part of left lower leg with fat layer exposed (2) Ulcer of right lower extremity with fat layer exposed Status: Chronic Current Visit: Yes Code(s): L97.912 - Non-pressure chronic ulcer of unspecified part of right lower leg with fat layer exposed (3) Right leg pain Status: Chronic Current Visit: Yes Code(s): M79.604 - Pain in right leg (4) Calciphylaxis Status: Chronic Current Visit: Yes Code(s): E83.59 - Other disorders of calcium metabolism (5) Pain in left leg Status: Chronic Current Visit: Yes Code(s): M79.605 - Pain in left leg (6) Delayed wound healing Status: Chronic Current Visit: Yes Code(s): T14.8XXD - Other injury of unspecified body region, subsequent encounter (7) Localized edema Status: Chronic Current Visit: Yes Code(s): R60.0 - Localized edema Type of Wound Date of Service: 04/18/18 Chief Complaint: Wounds/ulcers of b/l lower legs History of Wound: Di is a 72 year old female that returns for follow up of bilateral leg ulcers. She has been changing the dressings every other day and denies odor or redness to either limb. She had several theraskin applications applied. Her spinal stenosis is irritating her and she has some painful numbness to the right limb. She had an epidural previously with reduction of lower extremity pain noted. She follows with Dr. Carbajal with pain management. Her venous studies showed incompetent left SFJ. She will follow up with Dr. Pelaez regarding the results of this testing for possible procedure to address SFJ incompetence. She denies fever, chills, nausea, vomiting. She denies calf pain. She is with her today. She was diagnosed with calciphylaxis and had a biopsy of her legs skin to confirm this diagnosis and has seen custom miller, Dr. Almonte. She continues with IV infusion of sodium thiosulfate for calciphylaxis treatment. She has been improving her offloading by avoiding direct pressure to the back of her legs. She denies fever, chill, nausea, vomiting, loss of appetite. Progress of Wound: Improving - Physical Exam Vital Signs Temp Pulse Resp BP 97.1 F L 83 16 123/64 H 04/18/18 09:39 04/18/18 09:39 04/18/18 09:39 04/18/18 09:39 General: Alert, Oriented x3, Cooperative HEENT: Atraumatic Extremities: No cyanosis, Capillary Refill Less than 3 Seconds, No Calf Tenderness - Negative Kimberly and Layton sign bilateral, Diminished Peripheral Pulses, Edema - Bilateral lower extremities mild, Tenderness - Pain with manipulation to all wound sites Skin: Ulcer/ Wound - No purulence, no erythema, streaking, no odor, no acute infection bilateral. There is very minimal eschar formation with no liquefied or infected tissue noted bilateral the recently applied there are skin from last week to the anterior right leg remains intact and is partially incorporated. There is significant improvement of the quality and amount of granulation tissue to the other wounds. The bilateral proximal wounds also have decreased in devitalized slough and are looking healthier. The peripheral skin is atrophic and hairless. Wound Measurements and Assessment WC - Nurse 1 - General Ulcer Measurement Start: 04/18/18 09:39 Freq: Status: Active Protocol: Activity Type Activity Date Activity User E-Sign Co-Sign Detail Recorded Client Recorded Date Recorded By Document 04/18/18 09:39 [id number] 04/18/18 09:46 BJ 04/18/18 09:39 Wound Center Nurse 1 [Ulcer Assessment] #7 right anterior proximal LE -Combined with other wound No -Current Size (cm) - Length 10.5 -Current Size (cm) - Width 7.5 -Current Size (cm) - Depth 0.1 -Total Square Cm 78.75 -Photo Taken No -Epithelialization Small 1-33% -Tunneling No -Undermining/Tunneling No -Circular Undermining No -Exudate Amt Small (1-33%) -Exudate Type Serosanguineous -Wound Margin Flat & Intact -Granulation Amt Medium (34-66%) -Granulation Quality Red -Slough/Fibrin Yes -Necrosis Amt Medium (34-66%) -Necrotic Tissue Type Adherent Slough -Structure Exposed N/A -Texture (Gabriella-wound Skin Appearance) Assessed Localized Edema -Moisture (Gabriella-wound Skin Appearance Assessed ) Dry/Scaly -Color (Gabriella-wound Skin Appearance) Assessed Hemosiderin Staining -Temperature (Gabriella-wound Skin No Abnormality Appearance) (Pt Warm) -Tenderness on Palpation (Gabriella-wound No Skin Appearance) -Ulcer Cleansing Rinsed/ Irrigated with Saline -Foul Odor after Cleansing No -Anesthetic Used 4% Lidocaine Solution #6 LEFT MEDIAL SUPERIOR LEG -Combined with other wound No -Current Size (cm) - Length 1.1 -Current Size (cm) - Width 0.9 -Current Size (cm) - Depth 1.1 -Total Square Cm 0.99 -Photo Taken No -Epithelialization None Present -Tunneling No -Undermining/Tunneling No -Circular Undermining No -Exudate Amt Medium (34-66%) -Exudate Type Serosanguineous -Wound Margin Flat & Intact -Granulation Amt Large (67-100%) -Granulation Quality Red -Slough/Fibrin Yes -Necrosis Amt Small (1-33%) -Necrotic Tissue Type Adherent Slough -Structure Exposed N/A -Texture (Gabriella-wound Skin Appearance) Assessed Localized Edema -Moisture (Gabriella-wound Skin Appearance Assessed ) Dry/Scaly -Color (Gabriella-wound Skin Appearance) Assessed -Temperature (Gabriella-wound Skin No Abnormality Appearance) (Pt Warm) -Tenderness on Palpation (Gabriella-wound No Skin Appearance) -Ulcer Cleansing Rinsed/ Irrigated with Saline -Foul Odor after Cleansing No -Anesthetic Used 4% Lidocaine Solution #5 RIGHT POSTERIOR CALF -Combined with other wound No -Current Size (cm) - Length 13 -Current Size (cm) - Width 6 -Current Size (cm) - Depth 0.2 -Total Square Cm 78 -Photo Taken No -Epithelialization Small 1-33% -Tunneling No -Undermining/Tunneling No -Circular Undermining No -Exudate Amt Large (67-100%) -Exudate Type Serosanguineous -Wound Margin Flat & Intact -Granulation Amt Large (67-100%) -Granulation Quality Red -Slough/Fibrin Yes -Necrosis Amt Small (1-33%) -Necrotic Tissue Type Adherent Slough -Structure Exposed N/A -Texture (Gabriella-wound Skin Appearance) Assessed Localized Edema -Moisture (Gabriella-wound Skin Appearance Assessed ) Dry/Scaly -Color (Gabriella-wound Skin Appearance) Assessed Hemosiderin Staining -Temperature (Gabriella-wound Skin No Abnormality Appearance) (Pt Warm) -Tenderness on Palpation (Gabriella-wound No Skin Appearance) -Ulcer Cleansing Wound Cleanser -Foul Odor after Cleansing No -Anesthetic Used 4% Lidocaine Solution #4 Left calf -Combined with other wound No -Current Size (cm) - Length 12 -Current Size (cm) - Width 0.6 -Current Size (cm) - Depth 0.1 -Total Square Cm 7.2 -Photo Taken No -Epithelialization None Present -Tunneling No -Undermining/Tunneling No -Circular Undermining No -Exudate Amt Small (1-33%) -Exudate Type Serosanguineous -Wound Margin Flat & Intact -Granulation Amt None Present (0 %) -Slough/Fibrin Yes -Necrosis Amt Large (67-100%) -Necrotic Tissue Type Adherent Slough -Structure Exposed N/A -Texture (Gabriella-wound Skin Appearance) Assessed Localized Edema -Moisture (Gabriella-wound Skin Appearance Assessed ) Dry/Scaly -Color (Gabriella-wound Skin Appearance) Assessed Hemosiderin Staining -Temperature (Gabriella-wound Skin No Abnormality Appearance) (Pt Warm) -Tenderness on Palpation (Gabriella-wound No Skin Appearance) -Ulcer Cleansing Rinsed/ Irrigated with Saline -Foul Odor after Cleansing No -Anesthetic Used 4% Lidocaine Solution #3 RIGHT MEDIAL LE CLUSTER -Combined with other wound No -Current Size (cm) - Length 10 -Current Size (cm) - Width 10.5 -Current Size (cm) - Depth 0.1 -Total Square Cm 105.0 -Photo Taken No -Epithelialization Small 1-33% -Tunneling No -Undermining/Tunneling No -Circular Undermining No -Exudate Amt Large (67-100%) -Exudate Type Serosanguineous -Wound Margin Flat & Intact -Granulation Amt Medium (34-66%) -Granulation Quality Red -Slough/Fibrin Yes -Necrosis Amt Small (1-33%) -Necrotic Tissue Type Adherent Slough -Structure Exposed N/A -Texture (Gabriella-wound Skin Appearance) Assessed Localized Edema -Moisture (Gabriella-wound Skin Appearance Assessed ) Dry/Scaly -Color (Gabriella-wound Skin Appearance) Assessed Hemosiderin Staining -Temperature (Gabriella-wound Skin No Abnormality Appearance) (Pt Warm) -Tenderness on Palpation (Gabriella-wound No Skin Appearance) -Ulcer Cleansing Rinsed/ Irrigated with Saline -Foul Odor after Cleansing No -Anesthetic Used 4% Lidocaine Solution [Edema Assessment] -Lower Limb Edema Present Yes -Right Calf (cm) 35.7 -Right Ankle (cm) 23.3 -Left Calf (cm) 31.5 -Left Ankle (cm) 21.7 Musculoskeletal: No Tenderness to Palpation of Joints or Extremities, Muscle Wasting, - - Compartment bilateral lower extremity remain soft Neurological: Sensory exam intact to light touch and pain Psych/Mental Status: Normal Affect, Appropriate Debridement Note Wound debrided: medial leg Laterality: Right Type of Debridement: Excisional debridement Anesthesia Used: 4% Lidocaine Solution Depth: in the subcutaneous layer Percentage of wound debrided: 100 Instrument Used: #15 blade Tissue Removed: fibrous, devitalized subcutaneous, biofilm, slough Severity: Fat Layer Exposed Amount of bleeding with debridement: Mild Bleeding Controlled with: Pressure Patient tolerated procedure well - Additional Wound Wound debrided: posterior leg Laterality: Right Type of Debridement: Excisional debridement Anesthesia Used: 4% Lidocaine Solution Depth: in the subcutaneous layer Percentage of wound debrided: 100 Instrument Used: #15 blade Tissue Removed: fibrous, devitalized subcutaneous, biofilm, slough Severity: Fat Layer Exposed Amount of bleeding with debridement: Mild Bleeding Controlled with: Pressure Patient tolerated procedure: Patient tolerated procedure well - Additional Wound Wound debrided: anterior proximal leg Laterality: Right Type of Debridement: Excisional debridement Anesthesia Used: 4% Lidocaine Solution Depth: in the subcutaneous layer Percentage of wound debrided: 100 Instrument Used: #15 blade Tissue Removed: fibrous, devitalized subcutaneous, biofilm, slough Severity: Fat Layer Exposed Amount of bleeding with debridement: Mild Bleeding Controlled with: Pressure Patient tolerated procedure: Patient tolerated procedure well - Additional Wound Wound debrided: anterior leg: not debrided because theraskin is still incorporating Laterality: Right - Additional Wound Wound debrided: posterior lateral Laterality: Left Type of Debridement: Excisional debridement Anesthesia Used: 4% Lidocaine Solution Depth: in the subcutaneous layer Percentage of wound debrided: 100 Instrument Used: #15 blade Tissue Removed: fibrous, devitalized subcutaneous, biofilm, slough Severity: Fat Layer Exposed Amount of bleeding with debridement: Mild Bleeding Controlled with: Pressure Patient tolerated procedure: Patient tolerated procedure well - Additional Wound Wound debrided: proximal medial Laterality: Left Type of Debridement: Excisional debridement Anesthesia Used: 4% Lidocaine Solution Depth: in the subcutaneous layer Percentage of wound debrided: 100 Instrument Used: #15 blade Tissue Removed: fibrous, devitalized subcutaneous, biofilm, slough Severity: Fat Layer Exposed Amount of bleeding with debridement: Mild Bleeding Controlled with: Pressure Patient tolerated procedure: Patient tolerated procedure well Assessment/Plan Active Problems (Last Reviewed 04/14/18 @ 12:16 by Huang Alvarado MD) Right leg pain (Chronic) Ulcer of left lower extremity with fat layer exposed (Chronic) Calciphylaxis (Chronic) Ulcer of right lower extremity with fat layer exposed (Chronic) Pain in left leg (Chronic) Delayed wound healing (Chronic) Localized edema (Chronic) Assessment: Venous ulcers of b/l LE due to venous insufficiency. Delayed healing. venous insufficiency. Malnutrition suspected. Lower extremity pain. Differential diagnoses includes calciphylaxis. Multiple comorbidities noted. Calciphylaxis Plan: She was evaluated today and her care plan was discussed. She is amenable for debridement again today which was performed to the posterior and medial right leg cluster site as well as the proximal right and left leg ulcer sites ( posterior lateral and proximal smaller site). the theraskin site to the right anterior leg remains intact. After verbal consent and additional application of Thera skin was applied to the posterior right leg. This was additionally secured in place with a wound veil and Steri-Strips. She tolerated this well. The indications, application process, and anticipated healing time management was discussed in detail. She is advised to keep that theraskin sites clean, dry, and intact until follow-up visit next week. She is advised to change the dressing every other day with saline moistened gauze to pack into the proximal right leg and and left leg wound otherwise she will keep the other parts of the dressings intact. Home health will help her with this once this upcoming week and she will do that the other day. She demonstrates understanding. To continue with light compression. She has a follow up with Dr. Pelaez for evaluation of her arterial Doppler exam which appeared to have distal perfusion. She will apply hydrogel and Adaptic to the other leg sites. She will continue with saline wet-to-dry self debridement dressing changes to bilateral proximal smaller leg wound sites. A biopsy of the legs skin was previously obtained and the results were reviewed today and will be placed in her chart. I reiterated the importance of taking pressure off of these wound sites. She was told by her doctor to stop taking glucerna as it had too much calcium. To only take nutritional supplementation but do not have additional calcium in them. To complete course of sodium thiosulfate for treatment of calciphylaxis as prescribed once a week for 1 month. to return to clinic in 1 week at the wound care center or call sooner if she has any questions or concerns. She is to call if increased drainage or changes in wounds or if the patient or her has additional concerns or questions.
== END 2018-04-24 23:59 ==
LOC: WC 08:56
PROVIDERS: Family Provider Internal Medicine; PCP Internal Medicine; Visit Provider Podiatrist
DX: L97.922 Non-pressure chronic ulcer of unspecified part of left lower leg with fat layer exposed (principal); L97.912 Non-pressure chronic ulcer of unspecified part of right lower leg with fat layer exposed; I87.2 Venous insufficiency (chronic) (peripheral); E83.59 Other disorders of calcium metabolism; R60.0 Localized edema; Z79.899 Other long term (current) drug therapy
CPT/HCPCS: 11042; 11045; 15271; Q4121

== ENCOUNTER → 2018-04-19 09:37 | Outpatient (CLI) | payer MEDICARE, SELFPAY ==
[2018-04-19 10:00] VITALS: BP 114/63; PULSE 88; RESP 16; TEMP 36.6; O2SAT 97; BMI 28.3
== END ==
PROVIDERS: Family Provider Internal Medicine; PCP Internal Medicine; Visit Provider Internal Medicine Nephrology
DX: E83.59 Other disorders of calcium metabolism (principal)
CPT/HCPCS: 96365; J7050; A4216; J3490

== ENCOUNTER → 2018-04-23 09:05 | Outpatient (CLI) | payer MEDICARE, SELFPAY ==
[2018-04-23 09:18] VITALS: BP 120/71; PULSE 84; RESP 16; TEMP 36.3; O2SAT 98; BMI 29.2
== END ==
PROVIDERS: Family Provider Internal Medicine; PCP Internal Medicine; Visit Provider Internal Medicine Nephrology
DX: Z45.2 Encounter for adjustment and management of vascular access device (principal); E83.59 Other disorders of calcium metabolism
CPT/HCPCS: 96365; J7050; A4216; J3490

== ENCOUNTER → 2018-04-26 09:07 | Outpatient (CLI) | payer MEDICARE, SELFPAY ==
[2018-04-26 09:19] VITALS: BP 110/57; PULSE 75; RESP 16; TEMP 36.3; O2SAT 96; BMI 28.8
== END ==
PROVIDERS: Family Provider Internal Medicine; PCP Internal Medicine; Visit Provider Internal Medicine Nephrology
DX: E83.59 Other disorders of calcium metabolism (principal)
CPT/HCPCS: 96365; A4216; J3490

== ENCOUNTER → 2018-04-30 09:02 | Outpatient (CLI) | payer MEDICARE, SELFPAY ==
[2018-04-30 09:13] VITALS: BP 123/61; PULSE 82; RESP 18; TEMP 36.4; O2SAT 92; BMI 28.8
[2018-04-30 10:27] VITALS: BP 135/53; PULSE 66; RESP 18; TEMP 36.3; O2SAT 98
--- NOTE | 2018-04-30 10:50 | NURSING ---
PT C/O FEELING LIGHT HEADED. VITALS CHECKED AND STABLE. ORANGE JUICE GIVEN, LEGS ELEVATED. PT RESTING WILL MONITOR.
--- NOTE | 2018-04-30 11:00 | NURSING ---
PT STATES FEELS BETTER. AWAKE, ALERT, RESPONDING APPROPRIATELY. D/C HOME.
== END ==
PROVIDERS: Family Provider Internal Medicine; PCP Internal Medicine; Visit Provider Internal Medicine Nephrology
DX: E83.59 Other disorders of calcium metabolism (principal)
CPT/HCPCS: 96365; J7050; A4216; J3490

== ENCOUNTER → 2018-05-01 11:08 | Outpatient (CLI) | payer MEDICARE, SELFPAY ==
[2018-05-01 12:44] LABS: Amphetamine Urine VISTA NEGATIVE (<1000 ng/mL); Barbiturate Urine VISTA NEGATIVE (< 200 ng/mL); Benzodiazepine Urine VISTA NEGATIVE (< 200 ng/mL); Cocaine Urine VISTA NEGATIVE (< 300 ng/mL); Ecstacy Urine VISTA NEGATIVE (< 500 ng/mL); Methadone Urine VISTA NEGATIVE (< 300 ng/mL); PCP Urine VISTA NEGATIVE (< 25 ng/mL); THC Urine VISTA NEGATIVE (< 50 ng/mL); Vista UDS pH Range 5
== END ==
PROVIDERS: Family Provider Internal Medicine; PCP Internal Medicine; Visit Provider Anesthesiology Pain Medicine
DX: F11.20 Opioid dependence, uncomplicated (principal)
CPT/HCPCS: 80307

== ENCOUNTER → 2018-05-03 09:02 | Outpatient (CLI) | payer MEDICARE, SELFPAY ==
[2018-05-03 09:17] VITALS: BP 108/65; PULSE 69; RESP 16; TEMP 36.2; O2SAT 97; BMI 29.0
== END ==
PROVIDERS: Family Provider Internal Medicine; PCP Internal Medicine; Visit Provider Internal Medicine Nephrology
DX: E83.59 Other disorders of calcium metabolism (principal)
CPT/HCPCS: 96365; J7050; A4216; J3490

== ENCOUNTER → 2018-05-07 09:50 | Outpatient (CLI) | payer MEDICARE, SELFPAY ==
[2018-05-07 10:10] VITALS: BP 126/68; PULSE 81; RESP 16; TEMP 36.1; O2SAT 97; BMI 29.0
== END ==
PROVIDERS: Family Provider Internal Medicine; PCP Internal Medicine; Visit Provider Internal Medicine Nephrology
DX: E83.59 Other disorders of calcium metabolism (principal)
CPT/HCPCS: 96365; J7050; A4216; J3490

== ENCOUNTER → 2018-05-10 09:39 | Outpatient (CLI) | payer MEDICARE, SELFPAY ==
[2018-05-10 09:56] VITALS: BP 114/65; PULSE 89; RESP 16; TEMP 36.3; O2SAT 93; BMI 28.7
== END ==
PROVIDERS: Family Provider Internal Medicine; PCP Internal Medicine; Visit Provider Internal Medicine Nephrology
DX: E83.59 Other disorders of calcium metabolism (principal)
CPT/HCPCS: 96365; A4216; J3490

== ENCOUNTER → 2018-05-14 09:28 | Outpatient (CLI) | payer MEDICARE, SELFPAY ==
[2018-05-14 10:16] VITALS: BP 93/65; PULSE 68; RESP 16; TEMP 36.4; O2SAT 99; BMI 28.8
[2018-05-14 10:23] LABS: Hematocrit 36.6 % (37-47); Mean Corp Hgb Conc 30.1 g/gl (32-36); Mean Corpuscular Hgb 23.8 pg (27.0-32.0); Mean Platelet Vol. 10.2 fl (6.2-12.0); Platelet Count 164 K/mm3 (150-450); RBC Distribution Width CV 20.4 % (11.6-14.6); RBC Distribution Width SD 58.9 fl (35.1-43.9); Red Blood Count 4.63 M/mm3 (4.2-5.4); White Blood Count 4.6 K/mm3 (4.4-11.0)
[2018-05-14 10:39] LABS: Scan Indicated on CBC? Y/N YES- FLAGS NOTED
[2018-05-14 11:02] LABS: Vitamin D,25 Hydroxy 31.2 ng/mL (29.95-100.01)
[2018-05-14 11:26] LABS: BUN 23 mg/dL (7-18); BUN/Creat Ratio 18.7 RATIO (10-20); Calcium,Total 10.6 mg/dL (8.5-10.1); Chloride 102 mmol/L (98-107); Creatinine, Serum 1.23 mg/dL (0.55-1.02); EST Glomerular Filtration Rate 46 mL/min (>60); Est Glom Filt Rate - Afr Amer 55 mL/min (>60); Ferritin 21 ng/mL (8-252); Glucose 107 mg/dL (74-106); Iron 41 ug/dL (50-170); Iron Binding Capacity,Total 422 ug/dL (250-450); PERCENT IRON SATURATION 9.7 % (15.0-55.0); Phosphorus 2.9 mg/dL (2.5-4.9); Potassium 3.9 mmol/L (3.5-5.1); Sodium Level 142 mmol/L (136-145)
[2018-05-16 15:34] LABS: Vitamin D 1,25-Dihydroxy 68.7 pg/mL (19.9-79.3)
== END ==
PROVIDERS: Family Provider Internal Medicine; PCP Internal Medicine; Visit Provider Internal Medicine Nephrology
DX: D50.9 Iron deficiency anemia, unspecified (principal); E67.3 Hypervitaminosis D; E83.59 Other disorders of calcium metabolism
CPT/HCPCS: 96365; 36592; 80069; 82306; 82652; 82728; 83540; 83550; 85027; J7050; A4216; J3490

== ENCOUNTER → 2018-05-17 09:26 | Outpatient (CLI) | payer MEDICARE, SELFPAY ==
[2018-05-17 09:35] VITALS: BP 121/69; PULSE 81; RESP 18; TEMP 36.3; O2SAT 98
== END ==
PROVIDERS: Family Provider Internal Medicine; PCP Internal Medicine; Visit Provider Internal Medicine Nephrology
DX: E83.59 Other disorders of calcium metabolism (principal)
CPT/HCPCS: 96365; J7050; A4216; J3490

== ENCOUNTER → 2018-05-21 09:29 | Outpatient (CLI) | payer MEDICARE, SELFPAY ==
[2018-05-21 09:42] VITALS: BP 123/65; PULSE 84; RESP 18; TEMP 36.7; O2SAT 98; BMI 28.7
== END ==
PROVIDERS: Family Provider Internal Medicine; PCP Internal Medicine; Visit Provider Internal Medicine Nephrology
DX: Z45.2 Encounter for adjustment and management of vascular access device (principal); E83.59 Other disorders of calcium metabolism
CPT/HCPCS: 96365; J7050; A4216; J3490

== ENCOUNTER → 2018-05-23 12:24 | Outpatient (CLI) | payer MEDICARE, SELFPAY ==
[2018-05-23 13:57] LABS: Absolute Lymphocyte Count 1.09 X10^3/ul (0.83-4.51); Absolute Neutrophil Count 2.2 X10^3/uL (2.0-7.7); Basophil# 0.01 X10^3/uL; Basophil% 0.2 % (0-1); Eosinophil# 0.06 X10^3/uL; Eosinophils% 1.5 % (0-5); Hematocrit 37.6 % (37-47); Hemoglobin 11.5 g/dl (12.0-15.0); Lymphocyte # 1.09 X10^3/ul (4.0); Lymphocyte % 26.6 % (19-41); Mean Corp Hgb Conc 30.6 g/gl (32-36); Mean Corpuscular Hgb 24.2 pg (27.0-32.0); Mean Corpuscular Volume 79.2 fL (81-99); Mean Platelet Vol. 10.5 fl (6.2-12.0); Monocyte% 17.1 % (0-10); Neutrophil # 2.23 X10^3/uL (2.7-7.7); Neutrophil % 54.4 % (47-70); Platelet Count 181 K/mm3 (150-450); RBC Distribution Width CV 21.5 % (11.6-14.6); RBC Distribution Width SD 60.8 fl (35.1-43.9); Red Blood Count 4.75 M/mm3 (4.2-5.4); White Blood Count 4.1 K/mm3 (4.4-11.0)
[2018-05-23 14:00] LABS: Differential Indicated SCAN CRITERIA MET; POSITIVE COUNT NO; POSITIVE DIFFERENTIAL NO; POSITIVE MORPHOLOGY YES
[2018-05-23 14:10] LABS: ALB/GLOB Ratio 0.7 RATIO (0.9-2.4); AST(SGOT) 30 U/L (15-37); Alanine Aminotransfer ALT/SGPT 18 U/L (13-56); Albumin, Serum 3.1 g/dL (3.2-5.0); Alkaline Phosphatase 99 U/L (45-117); Anion Gap 9 (5-15); BUN 16 mg/dL (7-18); BUN/Creat Ratio 12.1 RATIO (10-20); Calcium,Total 10.7 mg/dL (8.5-10.1); Chloride 103 mmol/L (98-107); Creatinine, Serum 1.32 mg/dL (0.55-1.02); EST Glomerular Filtration Rate 42 mL/min (>60); Est Glom Filt Rate - Afr Amer 51 mL/min (>60); Globulin 4.5 g/dL (2.2-4.2); Glucose 151 mg/dL (74-106); Potassium 3.5 mmol/L (3.5-5.1); Protein, Total 7.6 g/dL (6.4-8.2); Sodium Level 140 mmol/L (136-145)
[2018-05-23 14:30] LABS: Differential Comment SCANNED
== END ==
PROVIDERS: Nurse Practitioner; Family Provider Internal Medicine; PCP Internal Medicine; Visit Provider Internal Medicine Nephrology
DX: Z01.818 Encounter for other preprocedural examination (principal); E83.59 Other disorders of calcium metabolism
CPT/HCPCS: 36592; 80053; 85025; A4216

== ENCOUNTER 2018-05-23 14:00 | Outpatient (RCR) | payer MEDICARE, SELFPAY ==
[2018-04-25 00:36] VITALS: BP 116/74; PULSE 96; RESP 18; TEMP 36.5; BMI 35.4
[2018-04-25 14:52] VITALS: BP 134/75; PULSE 96; RESP 18; TEMP 36.3; BMI 35.4
--- NOTE | 2018-04-25 16:34 | PN.PCM_ITS ---
(1) Ulcer of right lower extremity with fat layer exposed Status: Chronic Current Visit: Yes Code(s): L97.912 - Non-pressure chronic ulcer of unspecified part of right lower leg with fat layer exposed (2) Ulcer of left lower extremity with fat layer exposed Status: Chronic Current Visit: Yes Code(s): L97.922 - Non-pressure chronic ulcer of unspecified part of left lower leg with fat layer exposed (3) Right leg pain Status: Chronic Current Visit: Yes Code(s): M79.604 - Pain in right leg (4) Calciphylaxis Status: Chronic Current Visit: Yes Code(s): E83.59 - Other disorders of calcium metabolism (5) Pain in left leg Status: Chronic Current Visit: Yes Code(s): M79.605 - Pain in left leg (6) Delayed wound healing Status: Chronic Current Visit: Yes Code(s): T14.8XXD - Other injury of unspecified body region, subsequent encounter (7) Localized edema Status: Chronic Current Visit: Yes Code(s): R60.0 - Localized edema (8) Venous insufficiency (chronic) (peripheral) Status: Acute Current Visit: Yes Code(s): I87.2 - Venous insufficiency ( chronic) (peripheral) Type of Wound Date of Service: 04/25/18 Chief Complaint: Wounds/ulcers of b/l lower legs History of Wound: Di is a 72 year old female that returns for follow up of bilateral leg ulcers. She has been changing the dressings every other day and denies odor or redness to either limb. She had several theraskin applications applied. Her spinal stenosis is irritating her and she has some painful numbness to the right limb. She had an epidural previously with reduction of lower extremity pain noted. She follows with Dr. Carbajal with pain management. Her venous studies showed incompetent left SFJ. She will follow up with Dr. Pelaez regarding the results of this testing for possible procedure to address SFJ incompetence. She denies fever, chills, nausea, vomiting. She denies calf pain. She is with her today. She was diagnosed with calciphylaxis and had a biopsy of her legs skin to confirm this diagnosis and has seen building custodian, Dr. Almonte. She continues with IV infusion of sodium thiosulfate for calciphylaxis treatment. She has been improving her offloading by avoiding direct pressure to the back of her legs. She denies fever, chill, nausea, vomiting, loss of appetite. Progress of Wound: Improving - Physical Exam Vital Signs Temp Pulse Resp BP 97.3 F L 96 18 134/75 H 04/25/18 14:52 04/25/18 14:52 04/25/18 14:52 04/25/18 14:52 General: Alert, Oriented x3, Cooperative Extremities: No cyanosis, Capillary Refill Less than 3 Seconds, No Calf Tenderness - Negative Kimberly and Layton sign bilateral, Diminished Peripheral Pulses, Edema - Bilateral lower extremities mild, Tenderness - Tenderness decreased with wound manipulation bilateral Skin: Ulcer/ Wound - No purulence, no erythema, streaking, odor, no infection bilateral, - - The theraskin advanced cryopreserved wound product that was applied last week continues to incorporate well to the right lower extremity. The remaining ulcer beds are pale granular and decreased in depth. There is no longer any fibrous or necrotic tissue to bilateral proximal leg wounds. The peripheral skin is atrophic and hairless bilateral lower extremities. There is no erythema, streaking, odor, purulence, deep tissue exposure, or infection to bilateral lower extremities Wound Measurements and Assessment WC - Nurse 1 - General Ulcer Measurement Start: 04/25/18 14:52 Freq: Status: Active Protocol: Activity Type Activity Date Activity User E-Sign Co-Sign Detail Recorded Client Recorded Date Recorded By Document 04/25/18 14:52 DL [id number] 04/25/18 15:06 DL 04/25/18 14:52 Wound Center Nurse 1 [Ulcer Assessment] #7 right anterior proximal LE -Texture (Gabriella-wound Skin Appearance) No Abnormality -Moisture (Gabriella-wound Skin Appearance No Abnormality ) -Color (Gabriella-wound Skin Appearance) Erythema Hemosiderin Staining -Temperature (Gabriella-wound Skin No Abnormality Appearance) (Pt Warm) -Tenderness on Palpation (Gabriella-wound Yes Skin Appearance) -Foul Odor after Cleansing No #6 LEFT MEDIAL SUPERIOR LEG -Current Size (cm) - Length 1.2 -Current Size (cm) - Width 1.1 -Current Size (cm) - Depth 0.6 -Total Square Cm 1.32 -Photo Taken No -Undermining/Tunneling Starts (O' 12 clock) -Undermining/Tunneling Ends (O'clock) 2 -Maximum Distance (cm) 0.5 -Exudate Amt Small (1-33%) -Exudate Type Serosanguineous -Wound Margin Distinct, Outline Attached -Granulation Amt Large (67-100%) -Granulation Quality Red -Necrosis Amt None Present (0 %) -Structure Exposed N/A -Texture (Gabriella-wound Skin Appearance) No Abnormality -Moisture (Gabriella-wound Skin Appearance Dry/Scaly ) -Color (Gabriella-wound Skin Appearance) No Abnormality -Ulcer Cleansing Wound Cleanser -Foul Odor after Cleansing No -Anesthetic Used 4% Lidocaine Solution #4 Left calf -Current Size (cm) - Length 10.5 -Current Size (cm) - Width 4.8 -Current Size (cm) - Depth 0.3 -Total Square Cm 50.40 -Photo Taken No -Exudate Amt Large (67-100%) -Exudate Type Serosanguineous -Wound Margin Distinct, Outline Attached -Granulation Amt Large (67-100%) -Granulation Quality Red -Necrosis Amt Small (1-33%) -Necrotic Tissue Type Adherent Slough -Structure Exposed N/A -Texture (Gabriella-wound Skin Appearance) Scarring -Moisture (Gabriella-wound Skin Appearance No Abnormality ) -Color (Gabriella-wound Skin Appearance) No Abnormality -Temperature (Gabriella-wound Skin No Abnormality Appearance) (Pt Warm) -Ulcer Cleansing Wound Cleanser -Foul Odor after Cleansing No -Anesthetic Used 4% Lidocaine Solution #3 RIGHT MEDIAL LE CLUSTER -Moisture (Gabriella-wound Skin Appearance No Abnormality ) -Color (Gabriella-wound Skin Appearance) No Abnormality -Temperature (Gabriella-wound Skin No Abnormality Appearance) (Pt Warm) -Tenderness on Palpation (Gabriella-wound Yes Skin Appearance) -Foul Odor after Cleansing No [Edema Assessment] -Right Calf (cm) 36 -Right Ankle (cm) 23 -Left Calf (cm) 31.1 -Left Ankle (cm) 22 WC - Nurse 2 - General Ulcer CM Notes Start: 04/25/18 14:52 Freq: Status: Active Protocol: Activity Type Activity Date Activity User E-Sign Co-Sign Detail Recorded Client Recorded Date Recorded By Document 04/25/18 15:45 TM [id number] 04/25/18 15:54 TM 04/25/18 15:45 Wound Center Nurse 2 [Procedure/Treatment] #7 right anterior proximal LE -Time 15:47 -Correct Patient Yes -Correct Side, Site, Position Yes -Correct Procedure Yes -Procedure Performed Yes -Type of Procedure Debridement -Clinical Debridement Subcutaneous -Post Debridement Size (cm) - Length 2.9 -Post Debridement Size (cm) - Width 1.8 -Post Debridement Size (cm) - Depth 0.2 -Total Square Cm 5.22 -Wound/Ulcer Outcome Not Healed -Ulcer Cleansing Rinsed/ Irrigated with Saline -Foul Odor after Cleansing No -Bioengineered Tissue No -Expiration Date 12/06/21 -Product Lot Number [id number] code 102tsl -Percent Used 50 -Saline Lot Number [id number] -Topical Lidocaine (%) 4 -Bleeding Controlled with Pressure -Other #9 Theraskin 2x3 applied -Treatment Response Procedure Tolerated Well #6 LEFT MEDIAL SUPERIOR LEG -Time 15:49 -Correct Patient Yes -Correct Side, Site, Position Yes -Correct Procedure Yes -Procedure Performed Yes -Type of Procedure Debridement -Clinical Debridement Subcutaneous -Post Debridement Size (cm) - Length 1.3 -Post Debridement Size (cm) - Width 1.2 -Post Debridement Size (cm) - Depth 0.6 -Total Square Cm 1.56 -Wound/Ulcer Outcome Not Healed -Ulcer Cleansing Rinsed/ Irrigated with Saline -Foul Odor after Cleansing No -Bioengineered Tissue No -Topical Lidocaine (%) 4 -Bleeding Controlled with Pressure -Other wet to dry -Treatment Response Procedure Tolerated Well #5 RIGHT POSTERIOR CALF -Time 15:50 -Correct Patient Yes -Correct Side, Site, Position Yes -Correct Procedure Yes -Procedure Performed Yes -Post Debridement Size (cm) - Length 13.0 -Post Debridement Size (cm) - Width 6.1 -Post Debridement Size (cm) - Depth 0.2 -Total Square Cm 79.30 -Wound/Ulcer Outcome Not Healed -Ulcer Cleansing Rinsed/ Irrigated with Saline -Foul Odor after Cleansing No -Bioengineered Tissue No -Bleeding Controlled with NA -Other no debridement theraskin intact changed wound veil and steri strips -Treatment Response Procedure Tolerated Well #4 Left calf -Time 15:50 -Correct Patient Yes -Correct Side, Site, Position Yes -Correct Procedure Yes -Procedure Performed Yes -Type of Procedure Debridement -Clinical Debridement Subcutaneous -Post Debridement Size (cm) - Length 10.6 -Post Debridement Size (cm) - Width 4.9 -Post Debridement Size (cm) - Depth 0.3 -Total Square Cm 51.94 -Wound/Ulcer Outcome Not Healed -Ulcer Cleansing Rinsed/ Irrigated with Saline -Foul Odor after Cleansing No -Bioengineered Tissue No -Topical Lidocaine (%) 4 -Bleeding Controlled with Pressure -Other wound veil applied secured with steri strips -Treatment Response Procedure Tolerated Well #3 RIGHT MEDIAL LE CLUSTER -Time 15:52 -Correct Patient Yes -Correct Side, Site, Position Yes -Correct Procedure Yes -Procedure Performed Yes -Post Debridement Size (cm) - Length 10.0 -Post Debridement Size (cm) - Width 10.6 -Post Debridement Size (cm) - Depth 0.1 -Total Square Cm 106.00 -Wound/Ulcer Outcome Not Healed -Ulcer Cleansing Rinsed/ Irrigated with Saline -Foul Odor after Cleansing No -Bioengineered Tissue No -Bleeding Controlled with NA -Other no debridement covered with wound veil secured with steri strips -Treatment Response Procedure Tolerated Well [See Physician Procedure note for Specifics] Pain Scale: 0-10 Numeric [Pain] -Is Patient Pain Free? Yes Musculoskeletal: No Tenderness to Palpation of Joints or Extremities, Muscle Wasting Neurological: Sensory exam intact to light touch and pain Psych/Mental Status: Normal Affect, Appropriate Debridement Note Post-Debridement Measurements/Treatment WC - Nurse 2 - General Ulcer CM Notes Start: 04/25/18 14:52 Freq: Status: Active Protocol: Activity Type Activity Date Activity User E-Sign Co-Sign Detail Recorded Client Recorded Date Recorded By Document 04/25/18 15:45 [id number] 04/25/18 15:54 04/25/18 15:45 Wound Center Nurse 2 #7 right anterior proximal LE -Time 15:47 -Correct Patient Yes -Correct Side, Site, Position Yes -Correct Procedure Yes -Procedure Performed Yes -Type of Procedure Debridement -Clinical Debridement Subcutaneous -Post Debridement Size (cm) - Length 2.9 -Post Debridement Size (cm) - Width 1.8 -Post Debridement Size (cm) - Depth 0.2 -Total Square Cm 5.22 -Wound/Ulcer Outcome Not Healed -Ulcer Cleansing Rinsed/ Irrigated with Saline -Foul Odor after Cleansing No -Bioengineered Tissue No -Expiration Date 12/06/21 -Product Lot Number [id number] code 102tsl -Percent Used 50 -Saline Lot Number [id number] -Topical Lidocaine (%) 4 -Bleeding Controlled with Pressure -Other #9 Theraskin 2x3 applied -Treatment Response Procedure Tolerated Well #6 LEFT MEDIAL SUPERIOR LEG -Time 15:49 -Correct Patient Yes -Correct Side, Site, Position Yes -Correct Procedure Yes -Procedure Performed Yes -Type of Procedure Debridement -Clinical Debridement Subcutaneous -Post Debridement Size (cm) - Length 1.3 -Post Debridement Size (cm) - Width 1.2 -Post Debridement Size (cm) - Depth 0.6 -Total Square Cm 1.56 -Wound/Ulcer Outcome Not Healed -Ulcer Cleansing Rinsed/ Irrigated with Saline -Foul Odor after Cleansing No -Bioengineered Tissue No -Topical Lidocaine (%) 4 -Bleeding Controlled with Pressure -Other wet to dry -Treatment Response Procedure Tolerated Well #5 RIGHT POSTERIOR CALF -Time 15:50 -Correct Patient Yes -Correct Side, Site, Position Yes -Correct Procedure Yes -Procedure Performed Yes -Post Debridement Size (cm) - Length 13.0 -Post Debridement Size (cm) - Width 6.1 -Post Debridement Size (cm) - Depth 0.2 -Total Square Cm 79.30 -Wound/Ulcer Outcome Not Healed -Ulcer Cleansing Rinsed/ Irrigated with Saline -Foul Odor after Cleansing No -Bioengineered Tissue No -Bleeding Controlled with NA -Other no debridement theraskin intact changed wound veil and steri strips -Treatment Response Procedure Tolerated Well #4 Left calf -Time 15:50 -Correct Patient Yes -Correct Side, Site, Position Yes -Correct Procedure Yes -Procedure Performed Yes -Type of Procedure Debridement -Clinical Debridement Subcutaneous -Post Debridement Size (cm) - Length 10.6 -Post Debridement Size (cm) - Width 4.9 -Post Debridement Size (cm) - Depth 0.3 -Total Square Cm 51.94 -Wound/Ulcer Outcome Not Healed -Ulcer Cleansing Rinsed/ Irrigated with Saline -Foul Odor after Cleansing No -Bioengineered Tissue No -Topical Lidocaine (%) 4 -Bleeding Controlled with Pressure -Other wound veil applied secured with steri strips -Treatment Response Procedure Tolerated Well #3 RIGHT MEDIAL LE CLUSTER -Time 15:52 -Correct Patient Yes -Correct Side, Site, Position Yes -Correct Procedure Yes -Procedure Performed Yes -Post Debridement Size (cm) - Length 10.0 -Post Debridement Size (cm) - Width 10.6 -Post Debridement Size (cm) - Depth 0.1 -Total Square Cm 106.00 -Wound/Ulcer Outcome Not Healed -Ulcer Cleansing Rinsed/ Irrigated with Saline -Foul Odor after Cleansing No -Bioengineered Tissue No -Bleeding Controlled with NA -Other no debridement covered with wound veil secured with steri strips -Treatment Response Procedure Tolerated Well Pain Scale: 0-10 Numeric Is Patient Pain Free? Yes Wound debrided: right proximal leg Depth: in the subcutaneous layer Percentage of wound debrided: 100 Instrument Used: #15 blade Tissue Removed: fibrous, devitalized subcutaneous, biofilm, slough Severity: Fat Layer Exposed Amount of bleeding with debridement: Mild Bleeding Controlled with: Pressure Patient tolerated procedure well - Additional Wound Wound debrided: medial leg Laterality: Right Type of Debridement: Excisional debridement Anesthesia Used: 4% Lidocaine Solution Depth: in the subcutaneous layer Percentage of wound debrided: 100 Instrument Used: #15 blade Tissue Removed: fibrous, devitalized subcutaneous, biofilm, slough Severity: Fat Layer Exposed Amount of bleeding with debridement: Mild Bleeding Controlled with: Pressure Patient tolerated procedure: Patient tolerated procedure well - Additional Wound Wound debrided: anterior leg Laterality: Right Type of Debridement: Excisional debridement Anesthesia Used: 4% Lidocaine Solution Depth: in the subcutaneous layer Percentage of wound debrided: 100 Instrument Used: #15 blade Tissue Removed: fibrous, devitalized subcutaneous, biofilm, slough Amount of bleeding with debridement: Mild Bleeding Controlled with: Pressure Patient tolerated procedure: Patient tolerated procedure well - Additional Wound Wound debrided: lateral leg Laterality: Right Patient tolerated procedure: Patient tolerated procedure well - No debridement performed because previous theraskin continues to incorporate; this will be considered again next week., - - Additional Wound Wound debrided: lateral leg Laterality: Left Type of Debridement: Excisional debridement Anesthesia Used: 4% Lidocaine Solution Depth: in the subcutaneous layer Percentage of wound debrided: 100 Instrument Used: #15 blade Tissue Removed: fibrous, devitalized subcutaneous, biofilm, slough Severity: Fat Layer Exposed Amount of bleeding with debridement: Mild Bleeding Controlled with: Pressure Patient tolerated procedure: Patient tolerated procedure well - Additional Wound Wound debrided: proximal medial leg Laterality: Left Type of Debridement: Excisional debridement Anesthesia Used: 4% Lidocaine Solution Depth: in the subcutaneous layer Percentage of wound debrided: 100 Instrument Used: #15 blade Tissue Removed: fibrous, devitalized subcutaneous, biofilm, slough Severity: Fat Layer Exposed Amount of bleeding with debridement: Mild Bleeding Controlled with: Pressure Patient tolerated procedure: Patient tolerated procedure well Assessment/Plan Active Problems (Last Reviewed 04/14/18 @ 12:16 by Huang Alvarado MD) Venous insufficiency (chronic) (peripheral) (Acute) Right leg pain (Chronic) Ulcer of left lower extremity with fat layer exposed (Chronic) Calciphylaxis (Chronic) Ulcer of left lower extremity with fat layer exposed (Chronic) Ulcer of right lower extremity with fat layer exposed (Chronic) Pain in left leg (Chronic) Delayed wound healing (Chronic) Localized edema (Chronic) Assessment: Venous ulcers of b/l LE due to venous insufficiency. Delayed healing. venous insufficiency. Malnutrition suspected. Lower extremity pain. Multiple comorbidities noted. Calciphylaxis Plan: She was evaluated today and her care plan was discussed. She is amenable for debridement again today which was performed to the posterior and medial right leg cluster site as well as the proximal right and left leg ulcer sites ( posterior lateral and proximal smaller site). the theraskin site to the right lateral leg remains intact. After verbal consent and additional application of Thera skin was applied to the lateral left leg. This was additionally secured in place with a wound veil and Steri-Strips. She tolerated this well. The other sites were debrided as noted in the clinical panel. The indications, application process, and anticipated healing time management was discussed in detail. She is advised to keep that theraskin sites clean, dry, and intact until follow-up visit next week. She is advised to change the dressing every other day with saline moistened gauze to pack into the proximal left leg wound otherwise she will keep the other parts of the dressings intact. Home health will help her with this once this upcoming week and she will do that the other day. She demonstrates understanding. To continue with light compression. She has a follow up with Dr. Pelaez for evaluation of her arterial Doppler exam which appeared to have distal perfusion. A biopsy of the legs skin was previously obtained and the results were reviewed today and will be placed in her chart. I reiterated the importance of taking pressure off of these wound sites. She was told by her doctor to stop taking glucerna as it had too much calcium. To only take nutritional supplementation but do not have additional calcium in them. To complete course of sodium thiosulfate for treatment of calciphylaxis as prescribed once a week for 1 month. It is noted she is almost completed the course of theraskin and I recommend continued application of advanced wound care products. A prior authorization for Apligraf will be initiated will be considered in 2 weeks. She also understands operating room debridement with application of advanced wound care product is recommended and she is not ready to move forward with this at this time. She has venous insufficiency and this was confirmed with venous duplex Doppler that demonstrated incompetent lower extremity veins. I recommend elevation at rest. She is advised to avoid idle sitting or standing. I recommend vascular referral if you have intervention as a possible treatment plan. To continue bilateral Tubigrip use as a compression dressing. to return to clinic in 1 week at the wound care center or call sooner if she has any questions or concerns. She is to call if increased drainage or changes in wounds or if the patient or her has additional concerns or questions.
[2018-05-02 13:09] VITALS: BP 123/67; PULSE 84; RESP 18; TEMP 36.5; BMI 35.4
--- NOTE | 2018-05-02 13:27 | WC ---
PT LILLIANA LEFT INPLACE STERISTRIPS AND VEIL LEFT IN PLACE
[2018-05-09 09:42] VITALS: BP 140/69; PULSE 94; RESP 18; TEMP 36; BMI 35.4
--- NOTE | 2018-05-09 11:11 | PCM.WC.PN ---
(1) Ulcer of right lower extremity with fat layer exposed Status: Chronic Current Visit: Yes Code(s): L97.912 - Non-pressure chronic ulcer of unspecified part of right lower leg with fat layer exposed (2) Ulcer of left lower extremity with fat layer exposed Status: Chronic Current Visit: Yes Code(s): L97.922 - Non-pressure chronic ulcer of unspecified part of left lower leg with fat layer exposed (3) Right leg pain Status: Chronic Current Visit: Yes Code(s): M79.604 - Pain in right leg (4) Calciphylaxis Status: Chronic Current Visit: Yes Code(s): E83.59 - Other disorders of calcium metabolism (5) Pain in left leg Status: Chronic Current Visit: Yes Code(s): M79.605 - Pain in left leg (6) Delayed wound healing Status: Chronic Current Visit: Yes Code(s): T14.8XXD - Other injury of unspecified body region, subsequent encounter (7) Localized edema Status: Chronic Current Visit: Yes Code(s): R60.0 - Localized edema (8) Venous insufficiency (chronic) (peripheral) Status: Acute Current Visit: Yes Code(s): I87.2 - Venous insufficiency (chronic) (peripheral) Type of Wound Date of Service: 05/09/18 Chief Complaint: Wounds/ulcers of b/l lower legs History of Wound: Di is a 72 year old female that returns for follow up of bilateral leg ulcers. She has been changing the dressings every other day and denies odor or redness to either limb. She had several theraskin applications applied. Her spinal stenosis is irritating her and she has some painful numbness to the right limb. She had an epidural previously with reduction of lower extremity pain noted. She follows with Dr. Carbajal with pain management. Her venous studies showed incompetent left SFJ. She will follow up with Dr. Pelaez regarding the results of this testing for possible procedure to address SFJ incompetence. She denies fever, chills, nausea, vomiting. She denies calf pain. She is with her today. She was diagnosed with calciphylaxis and had a biopsy of her legs skin to confirm this diagnosis and has seen nurse paralegal, Dr. Almonte. She continues with IV infusion of sodium thiosulfate for calciphylaxis treatment via PICC line. She has been improving her offloading by avoiding direct pressure to the back of her legs. She denies fever, chill, nausea, vomiting, loss of appetite. Progress of Wound: Improving - Physical Exam Vital Signs Temp Pulse Resp BP 96.8 F L 94 18 140/69 H 05/09/18 09:42 05/09/18 09:42 05/09/18 09:42 05/09/18 09:42 General: Alert, Oriented x3, Cooperative Extremities: No cyanosis, Capillary Refill Less than 3 Seconds, No Calf Tenderness - Negative Kimberly and Layton bilateral, Diminished Peripheral Pulses, Edema - Bilateral lower extremities mild to moderate Skin: Ulcer/ Wound - No purulence, no erythema, streaking, no odor, no necrosis, no numbness eschar or deep tissue exposure bilateral lower extremities. There is cryopreserved skin that was placed last week intact and incorporating well to the posterior lateral right leg as well as the left leg that was placed 2 weeks ago. Her peripheral skin is atrophic and hairless. She does have peripheral epithelialization noted to the right anterior medial wound site Wound Measurements and Assessment WC - Nurse 1 - General Ulcer Measurement Start: 04/25/18 14:52 Freq: Status: Active Protocol: Activity Type Activity Date Activity User E-Sign Co-Sign Detail Recorded Client Recorded Date Recorded By Document 05/09/18 09:42 BJ [id number] 05/09/18 10:00 BJ 05/09/18 09:42 Wound Center Nurse 1 [Ulcer Assessment] #7 right anterior proximal LE -Combined with other wound No -Current Size (cm) - Length 2.8 -Current Size (cm) - Width 2.2 -Current Size (cm) - Depth 0.2 -Total Square Cm 6.16 -Photo Taken No -Epithelialization Small 1-33% -Tunneling No -Undermining/Tunneling No -Circular Undermining No -Exudate Amt Small (1-33%) -Exudate Type Serosanguineous -Wound Margin Flat & Intact -Granulation Amt Medium (34-66%) -Granulation Quality Red -Slough/Fibrin Yes -Necrosis Amt Small (1-33%) -Necrotic Tissue Type Adherent Slough -Structure Exposed N/A -Texture (Gabriella-wound Skin Appearance) Assessed Localized Edema Scarring -Moisture (Gabriella-wound Skin Appearance Assessed ) Dry/Scaly -Color (Gabriella-wound Skin Appearance) Assessed Hemosiderin Staining -Temperature (Gabriella-wound Skin No Abnormality Appearance) (Pt Warm) -Tenderness on Palpation (Gabriella-wound No Skin Appearance) -Ulcer Cleansing Wound Cleanser -Foul Odor after Cleansing No -Anesthetic Used 5% Lidocaine Gel #6 LEFT MEDIAL SUPERIOR LEG -Combined with other wound No -Current Size (cm) - Length 1.0 -Current Size (cm) - Width 1.2 -Current Size (cm) - Depth 0.7 -Total Square Cm 1.20 -Photo Taken No -Epithelialization Medium 34-66% -Tunneling No -Undermining/Tunneling No -Circular Undermining No -Exudate Amt Small (1-33%) -Exudate Type Serosanguineous -Wound Margin Flat & Intact -Granulation Amt Large (67-100%) -Granulation Quality Red -Slough/Fibrin No -Structure Exposed N/A -Texture (Gabriella-wound Skin Appearance) Assessed Localized Edema -Moisture (Gabriella-wound Skin Appearance Assessed ) Dry/Scaly -Color (Gabriella-wound Skin Appearance) Assessed -Temperature (Gabriella-wound Skin No Abnormality Appearance) (Pt Warm) -Tenderness on Palpation (Gabriella-wound No Skin Appearance) -Ulcer Cleansing Wound Cleanser -Foul Odor after Cleansing No -Anesthetic Used 5% Lidocaine Gel #5 RIGHT POSTERIOR CALF -Combined with other wound No -Current Size (cm) - Length 12 -Current Size (cm) - Width 12 -Current Size (cm) - Depth 0.1 -Total Square Cm 144 -Photo Taken No -Epithelialization Small 1-33% -Tunneling No -Undermining/Tunneling No -Circular Undermining No -Exudate Amt Large (67-100%) -Exudate Type Yellow/Green -Wound Margin Thickened -Granulation Amt Medium (34-66%) -Granulation Quality Red -Slough/Fibrin Yes -Necrosis Amt Medium (34-66%) -Necrotic Tissue Type Adherent Slough -Structure Exposed N/A -Texture (Gabriella-wound Skin Appearance) Assessed Localized Edema -Moisture (Gabriella-wound Skin Appearance Assessed ) Dry/Scaly -Color (Gabriella-wound Skin Appearance) Assessed -Temperature (Gabriella-wound Skin No Abnormality Appearance) (Pt Warm) -Tenderness on Palpation (Gabriella-wound No Skin Appearance) -Ulcer Cleansing Wound Cleanser -Foul Odor after Cleansing No -Anesthetic Used 5% Lidocaine Gel #4 Left calf -Combined with other wound No -Current Size (cm) - Length 11.5 -Current Size (cm) - Width 7 -Current Size (cm) - Depth 0.1 -Total Square Cm 80.5 -Photo Taken No -Epithelialization Small 1-33% -Tunneling No -Undermining/Tunneling No -Circular Undermining No -Exudate Amt Medium (34-66%) -Exudate Type Serosanguineous -Wound Margin Flat & Intact -Granulation Amt Medium (34-66%) -Granulation Quality [place] -Slough/Fibrin Yes -Necrosis Amt Medium (34-66%) -Necrotic Tissue Type Adherent Slough -Structure Exposed N/A -Texture (Gabriella-wound Skin Appearance) Assessed Localized Edema -Moisture (Gabriella-wound Skin Appearance Assessed ) Dry/Scaly -Color (Gabriella-wound Skin Appearance) Assessed Hemosiderin Staining -Temperature (Gabriella-wound Skin No Abnormality Appearance) (Pt Warm) -Tenderness on Palpation (Gabriella-wound No Skin Appearance) -Ulcer Cleansing Wound Cleanser -Foul Odor after Cleansing No -Anesthetic Used 5% Lidocaine Gel #3 RIGHT MEDIAL LE CLUSTER -Combined with other wound No -Current Size (cm) - Length 11 -Current Size (cm) - Width 11 -Current Size (cm) - Depth 0.1 -Total Square Cm 121 -Photo Taken No -Epithelialization Small 1-33% -Tunneling No -Undermining/Tunneling No -Circular Undermining No -Exudate Amt Large (67-100%) -Exudate Type Yellow/Green -Wound Margin Flat & Intact -Granulation Amt None Present (0 %) -Slough/Fibrin Yes -Necrosis Amt Medium (34-66%) -Necrotic Tissue Type Adherent Slough -Structure Exposed N/A -Texture (Gabriella-wound Skin Appearance) Assessed Localized Edema Scarring -Moisture (Gabriella-wound Skin Appearance Assessed ) Dry/Scaly -Color (Gabriella-wound Skin Appearance) Assessed -Temperature (Gabriella-wound Skin No Abnormality Appearance) (Pt Warm) -Tenderness on Palpation (Gabriella-wound No Skin Appearance) -Ulcer Cleansing Wound Cleanser -Foul Odor after Cleansing No -Anesthetic Used 5% Lidocaine Gel [Edema Assessment] -Lower Limb Edema Present Yes -Right Calf (cm) 37 -Right Ankle (cm) 24.5 -Left Calf (cm) 34 -Left Ankle (cm) 23.3 WC - Nurse 2 - General Ulcer CM Notes Start: 04/25/18 14:52 Freq: Status: Active Protocol: Activity Type Activity Date Activity User E-Sign Co-Sign Detail Recorded Client Recorded Date Recorded By Document 05/09/18 10:59 [id number] 05/09/18 11:01 05/09/18 10:59 Wound Center Nurse 2 [Procedure/Treatment] #7 right anterior proximal LE -Correct Patient No -Correct Side, Site, Position No -Correct Procedure No -Procedure Performed No #6 LEFT MEDIAL SUPERIOR LEG -Time 10:59 -Correct Patient Yes -Correct Side, Site, Position Yes -Correct Procedure Yes -Procedure Performed Yes -Type of Procedure Debridement -Clinical Debridement Subcutaneous -Post Debridement Size (cm) - Length 1.1 -Post Debridement Size (cm) - Width 1.2 -Post Debridement Size (cm) - Depth 0.7 -Total Square Cm 1.32 -Wound/Ulcer Outcome Not Healed -Ulcer Cleansing Rinsed/ Irrigated with Saline -Foul Odor after Cleansing No -Bioengineered Tissue No -Bleeding Controlled with Pressure -Treatment Response Procedure Tolerated Well #5 RIGHT POSTERIOR CALF -Correct Patient No -Correct Side, Site, Position No -Correct Procedure No -Procedure Performed No #4 Left calf -Correct Patient No -Correct Side, Site, Position No -Correct Procedure No -Procedure Performed No #3 RIGHT MEDIAL LE CLUSTER -Time 11:00 -Correct Patient Yes -Correct Side, Site, Position Yes -Correct Procedure Yes -Procedure Performed Yes -Type of Procedure Debridement -Clinical Debridement Subcutaneous -Post Debridement Size (cm) - Length 11 -Post Debridement Size (cm) - Width 11.1 -Post Debridement Size (cm) - Depth 0.1 -Total Square Cm 122.1 -Wound/Ulcer Outcome Not Healed -Ulcer Cleansing Rinsed/ Irrigated with Saline -Foul Odor after Cleansing No -Bioengineered Tissue Yes -Type of bioengineered Tissue Apligraf -Expiration Date 05/16/18 -Product Lot Number [id number] -Percent Used 100 -Saline Lot Number [id number] -Bleeding Controlled with Pressure -Treatment Response Procedure Tolerated Well [See Physician Procedure note for Specifics] Pain Scale: 0-10 Numeric [Pain] -Is Patient Pain Free? Yes Musculoskeletal: No Tenderness to Palpation of Joints or Extremities, Muscle Wasting, Tenderness - Pain with wound manipulation bilateral Neurological: Sensory exam intact to light touch and pain Psych/Mental Status: Normal Affect, Appropriate Debridement Note Post-Debridement Measurements/Treatment WC - Nurse 2 - General Ulcer CM Notes Start: 04/25/18 14:52 Freq: Status: Active Protocol: Activity Type Activity Date Activity User E-Sign Co-Sign Detail Recorded Client Recorded Date Recorded By Document 04/25/18 15:45 [id number] 04/25/18 15:54 Document 05/02/18 14:16 [id number] 05/02/18 14:21 Document 05/09/18 10:59 [id number] 05/09/18 11:01 04/25/18 05/02/18 05/09/18 15:45 14:16 10:59 Wound Center Nurse 2 #7 right anterior proximal LE -Time 15:47 14:16 -Correct Patient Yes Yes No -Correct Side, Site, Position Yes Yes No -Correct Procedure Yes Yes No -Procedure Performed Yes Yes No -Type of Procedure Debridement -Clinical Debridement Subcutaneous -Post Debridement Size (cm) - Length 2.9 2.9 -Post Debridement Size (cm) - Width 1.8 1.8 -Post Debridement Size (cm) - Depth 0.2 0.2 -Total Square Cm 5.22 5.22 -Wound/Ulcer Outcome Not Healed Not Healed -Ulcer Cleansing Rinsed/ Rinsed/ Irrigated with Irrigated with Saline Saline -Foul Odor after Cleansing No No -Bioengineered Tissue No No -Expiration Date 12/06/21 -Product Lot Number [id number] code [id number] -Percent Used 50 -Saline Lot Number [id number] -Topical Lidocaine (%) 4 -Bleeding Controlled with Pressure NA -Other #9 Theraskin NO DEBRIDEMENT 2x3 applied THERASKIN INTACT NEW WOUND VEIL APPLIED -Treatment Response Procedure Procedure Tolerated Well Tolerated Well #6 LEFT MEDIAL SUPERIOR LEG -Time 15:49 14:17 10:59 -Correct Patient Yes Yes Yes -Correct Side, Site, Position Yes Yes Yes -Correct Procedure Yes Yes Yes -Procedure Performed Yes Yes Yes -Type of Procedure Debridement Debridement Debridement -Clinical Debridement Subcutaneous Subcutaneous Subcutaneous -Post Debridement Size (cm) - Length 1.3 1.3 1.1 -Post Debridement Size (cm) - Width 1.2 1.0 1.2 -Post Debridement Size (cm) - Depth 0.6 0.4 0.7 -Total Square Cm 1.56 1.30 1.32 -Wound/Ulcer Outcome Not Healed Not Healed Not Healed -Ulcer Cleansing Rinsed/ Rinsed/ Rinsed/ Irrigated with Irrigated with Irrigated with Saline Saline Saline -Foul Odor after Cleansing No No No -Bioengineered Tissue No No No -Topical Lidocaine (%) 4 4 -Bleeding Controlled with Pressure Pressure Pressure -Other wet to dry WET TO DRY DAILY -Treatment Response Procedure Procedure Procedure Tolerated Well Tolerated Well Tolerated Well #5 RIGHT POSTERIOR CALF -Time 15:50 14:17 -Correct Patient Yes Yes No -Correct Side, Site, Position Yes Yes No -Correct Procedure Yes Yes No -Procedure Performed Yes Yes No -Post Debridement Size (cm) - Length 13.0 13.0 -Post Debridement Size (cm) - Width 6.1 6.1 -Post Debridement Size (cm) - Depth 0.2 0.2 -Total Square Cm 79.30 79.30 -Wound/Ulcer Outcome Not Healed Not Healed -Ulcer Cleansing Rinsed/ Rinsed/ Irrigated with Irrigated with Saline Saline -Foul Odor after Cleansing No No -Bioengineered Tissue No No -Bleeding Controlled with NA NA -Other no debridement NO DEBRIDEMENT theraskin THERASKIN intact changed INTACT NEW wound veil and WOUND VEIL steri strips APPLIED -Treatment Response Procedure Procedure Tolerated Well Tolerated Well #4 Left calf -Time 15:50 14:18 -Correct Patient Yes Yes No -Correct Side, Site, Position Yes Yes No -Correct Procedure Yes Yes No -Procedure Performed Yes Yes No -Type of Procedure Debridement -Clinical Debridement Subcutaneous -Post Debridement Size (cm) - Length 10.6 -Post Debridement Size (cm) - Width 4.9 -Post Debridement Size (cm) - Depth 0.3 -Total Square Cm 51.94 -Wound/Ulcer Outcome Not Healed Not Healed -Ulcer Cleansing Rinsed/ Rinsed/ Irrigated with Irrigated with Saline Saline -Foul Odor after Cleansing No No -Bioengineered Tissue No No -Topical Lidocaine (%) 4 -Bleeding Controlled with Pressure NA -Other wound veil NO DEBRIDEMENT applied secured THERASKIN with steri INTACT NEW strips WOUND VEIL APPLIED -Treatment Response Procedure Procedure Tolerated Well Tolerated Well #3 RIGHT MEDIAL LE CLUSTER -Time 15:52 14:18 11:00 -Correct Patient Yes Yes Yes -Correct Side, Site, Position Yes Yes Yes -Correct Procedure Yes Yes Yes -Procedure Performed Yes Yes Yes -Type of Procedure Debridement Debridement -Clinical Debridement Subcutaneous Subcutaneous -Post Debridement Size (cm) - Length 10.0 10.1 11 -Post Debridement Size (cm) - Width 10.6 10.7 11.1 -Post Debridement Size (cm) - Depth 0.1 0.1 0.1 -Total Square Cm 106.00 108.07 122.1 -Wound/Ulcer Outcome Not Healed Not Healed Not Healed -Ulcer Cleansing Rinsed/ Rinsed/ Rinsed/ Irrigated with Irrigated with Irrigated with Saline Saline Saline -Foul Odor after Cleansing No No No -Bioengineered Tissue No No Yes -Type of bioengineered Tissue Apligraf -Expiration Date 08/16/21 05/16/18 -Product Lot Number [id number] -Percent Used 100 100 -Saline Lot Number [id number] -Topical Lidocaine (%) 4 -Bleeding Controlled with NA Pressure Pressure -Other no debridement #10 THERASKIN covered with APPLIED WOUND wound veil VEIL COVERED secured with SECURED WITH steri strips STERI STRIPS -Treatment Response Procedure Procedure Procedure Tolerated Well Tolerated Well Tolerated Well Pain Scale: 0-10 Numeric Is Patient Pain Free? Yes Yes Yes Wound debrided: anterior medial leg Laterality: Right Type of Debridement: Excisional debridement Anesthesia Used: 5% Lidocaine Gel Depth: in the subcutaneous layer Percentage of wound debrided: 100 Instrument Used: #15 blade, Forceps Tissue Removed: fibrous, devitalized subcutaneous, biofilm, slough Severity: Fat Layer Exposed Amount of bleeding with debridement: Mild Bleeding Controlled with: Pressure Patient tolerated procedure well - Additional Wound Wound debrided: medial proximal leg Laterality: Left Type of Debridement: Excisional debridement Anesthesia Used: 5% Lidocaine Gel Depth: in the subcutaneous layer Percentage of wound debrided: 100 Instrument Used: #15 blade, Forceps Tissue Removed: fibrous, devitalized subcutaneous, biofilm, slough Severity: Fat Layer Exposed Amount of bleeding with debridement: Mild Bleeding Controlled with: Pressure Patient tolerated procedure: Patient tolerated procedure well Assessment/Plan Active Problems (Last Reviewed 04/14/18 @ 12:16 by Huang Alvarado MD) Venous insufficiency (chronic) (peripheral) (Acute) Right leg pain (Chronic) Ulcer of left lower extremity with fat layer exposed (Chronic) Calciphylaxis (Chronic) Ulcer of right lower extremity with fat layer exposed (Chronic) Pain in left leg (Chronic) Delayed wound healing (Chronic) Localized edema (Chronic) Assessment: Right and left leg ulcers with fat layer exposed, chronic and noninfected. Delayed healing. venous insufficiency. Malnutrition suspected. Lower extremity pain. Multiple comorbidities noted. Calciphylaxis Plan: She was evaluated today and her care plan was discussed. She is amenable for debridement again today which was performed to the anterior medial right leg cluster site as well as the proximal left leg ulcer sites. the theraskin site to the right posterior lateral leg lateral left leg remains intact. After verbal consent and additional application of Apligraf, which was recently approved, was applied to the anterior medial right leg. This was additionally secured in place with a wound veil and Steri-Strips. She tolerated this well. The other sites were debrided as noted in the clinical panel. The indications, application process, and anticipated healing time management was discussed in detail. She is advised to keep that theraskin and Apligraf sites clean, dry, and intact until follow-up visit next week. She is advised to change the dressing every other day with Lacey and overlying gauze to pack into the proximal left leg wound otherwise she will keep the other parts of the dressings intact. Home health will help her with this once this upcoming week and she will do that the other day. She demonstrates understanding. To continue with light compression. She has a follow up with Dr. Pelaez for evaluation of her arterial Doppler exam which appeared to have distal perfusion. A biopsy of the legs skin was previously obtained and the results were reviewed today and will be placed in her chart. I reiterated the importance of taking pressure off of these wound sites. She was told by her doctor to stop taking glucerna as it had too much calcium. To only take nutritional supplementation but do not have additional calcium in them. To complete course of sodium thiosulfate for treatment of calciphylaxis as prescribed once a week for 1 month. We did also discuss the opportunity to go to the operating room for more aggressive debridement application of advanced wound care product. She is amenable to consider this at this time under IV sedation and local sedation. Prior authorization for Parrish fill, advanced wound care product derived from amniotic cord and umbilical cord cells, will be initiated. She understands a preoperative history and physical exam will need to be obtained by her primary care physician with diagnostic data to confirm her medical safety prior to proceeding. She is concerned she has had previous issues with general anesthesia and I reassured her this procedure will not be performed under general anesthesia and is a same-day surgery. We discussed the preoperative indications, planned procedures, possible benefits, risks, complications, and anticipated healing time and management. I answered all of her questions. To return to the wound healing center in 1 week or call sooner if she has any questions or concerns.
[2018-05-16 15:34] VITALS: BP 111/70; PULSE 86; RESP 16; TEMP 36; BMI 35.4
--- NOTE | 2018-05-16 16:57 | PCM.WC.PN ---
(1) Ulcer of right lower extremity with fat layer exposed Status: Chronic Code(s): L97.912 - Non-pressure chronic ulcer of unspecified part of right lower leg with fat layer exposed (2) Ulcer of left lower extremity with fat layer exposed Status: Chronic Code(s): L97.922 - Non-pressure chronic ulcer of unspecified part of left lower leg with fat layer exposed (3) Right leg pain Status: Chronic Code(s): M79.604 - Pain in right leg (4) Calciphylaxis Status: Chronic Code(s): E83.59 - Other disorders of calcium metabolism (5) Pain in left leg Status: Chronic Code(s): M79.605 - Pain in left leg (6) Delayed wound healing Status: Chronic Code(s): T14.8XXD - Other injury of unspecified body region, subsequent encounter (7) Localized edema Status: Chronic Code(s): R60.0 - Localized edema (8) Venous insufficiency (chronic) (peripheral) Status: Chronic Code(s): I87.2 - Venous insufficiency (chronic) (peripheral) Type of Wound Date of Service: 05/20/18 Chief Complaint: Wounds/ulcers of b/l lower legs History of Wound: Di is a 72 year old female that returns for follow up of bilateral leg ulcers. She has been changing the dressings every other day and denies odor or redness to either limb. She had several theraskin applications applied and one apligraft application last week. She follows with Dr. Carbajal with pain management. Her venous studies showed incompetent left SFJ. She will follow up with Dr. Pelaez regarding the results of this testing for possible procedure to address SFJ incompetence. She denies fever, chills, nausea, vomiting. She denies calf pain. She is with her today. She was diagnosed with calciphylaxis and had a biopsy of her legs skin to confirm this diagnosis and has seen elevator adjuster, Dr. Almonte. She continues with IV infusion of sodium thiosulfate for calciphylaxis treatment via PICC line. She has been improving her offloading by avoiding direct pressure to the back of her legs. She denies fever, chill, nausea, vomiting, loss of appetite. Progress of Wound: Improving - Physical Exam Vital Signs Temp Pulse Resp BP 96.8 F L 86 16 111/70 05/16/18 15:34 05/16/18 15:34 05/16/18 15:34 05/16/18 15:34 General: Alert, Oriented x3, Cooperative HEENT: Atraumatic Extremities: No cyanosis, Capillary Refill Less than 3 Seconds, No Calf Tenderness - Negative Kimberly and Layton sign bilateral, Diminished Peripheral Pulses, Edema - Bilateral lower extremities Skin: Ulcer/ Wound - No purulence, no erythema, streaking, no odor, no infections bilateral. Her peripheral skin is atrophic and hairless. There is no necrosis or deep tissue exposure noted., - - The wound beds have significant increased granulation tissue that appears to be healthy Wound Measurements and Assessment WC - Nurse 1 - General Ulcer Measurement Start: 04/25/18 14:52 Freq: Status: Active Protocol: Activity Type Activity Date Activity User E-Sign Co-Sign Detail Recorded Client Recorded Date Recorded By Document 05/16/18 15:34 [id number] 05/16/18 15:36 05/16/18 15:34 Wound Center Nurse 1 [Ulcer Assessment] #6 LEFT MEDIAL SUPERIOR LEG -Combined with other wound No -Current Size (cm) - Length 0.3 -Current Size (cm) - Width 0.3 -Current Size (cm) - Depth 0.4 -Total Square Cm 0.09 -Photo Taken No -Epithelialization None Present -Tunneling No -Undermining/Tunneling No -Circular Undermining No -Exudate Amt Medium (34-66%) -Exudate Type Serosanguineous -Wound Margin Distinct, Outline Attached -Granulation Amt Medium (34-66%) -Granulation Quality Red -Slough/Fibrin Yes -Necrosis Amt None Present (0 %) -Necrotic Tissue Type Adherent Slough -Structure Exposed None/Limited to Skin Breakdown -Texture (Gabriella-wound Skin Appearance) No Abnormality Assessed -Moisture (Gabriella-wound Skin Appearance No Abnormality ) Assessed -Color (Gabriella-wound Skin Appearance) No Abnormality Assessed -Temperature (Gabriella-wound Skin No Abnormality Appearance) (Pt Warm) -Tenderness on Palpation (Gabriella-wound No Skin Appearance) -Ulcer Cleansing Rinsed/ Irrigated with Saline -Foul Odor after Cleansing No -Anesthetic Used 5% Lidocaine Gel [Edema Assessment] -Lower Limb Edema Present Yes -Right Calf (cm) 34.5 -Right Ankle (cm) 25.0 -Left Calf (cm) 32 -Left Ankle (cm) 24 WC - Nurse 2 - General Ulcer CM Notes Start: 04/25/18 14:52 Freq: Status: Active Protocol: Activity Type Activity Date Activity User E-Sign Co-Sign Detail Recorded Client Recorded Date Recorded By Document 05/16/18 16:14 [id number] 05/16/18 16:21 05/16/18 16:14 Wound Center Nurse 2 [Procedure/Treatment] #7 right anterior proximal LE -Time 16:16 -Correct Patient Yes -Correct Side, Site, Position Yes -Correct Procedure Yes -Procedure Performed Yes -Wound/Ulcer Outcome Not Healed -Ulcer Cleansing Rinsed/ Irrigated with Saline -Foul Odor after Cleansing No -Bioengineered Tissue No -Bleeding Controlled with NA -Other Apligraf Intact no debridement -Treatment Response Procedure Tolerated Well #6 LEFT MEDIAL SUPERIOR LEG -Time 16:16 -Correct Patient Yes -Correct Side, Site, Position Yes -Correct Procedure Yes -Procedure Performed Yes -Type of Procedure Debridement -Clinical Debridement Subcutaneous -Post Debridement Size (cm) - Length 0.4 -Post Debridement Size (cm) - Width 0.4 -Post Debridement Size (cm) - Depth 0.4 -Total Square Cm 0.16 -Wound/Ulcer Outcome Not Healed -Ulcer Cleansing Rinsed/ Irrigated with Saline -Foul Odor after Cleansing No -Bioengineered Tissue No -Topical Lidocaine (%) 4 -Bleeding Controlled with Pressure -Treatment Response Procedure Tolerated Well #5 RIGHT POSTERIOR CALF -Time 16:17 -Correct Patient Yes -Correct Side, Site, Position Yes -Correct Procedure Yes -Procedure Performed Yes -Wound/Ulcer Outcome Not Healed -Ulcer Cleansing Rinsed/ Irrigated with Saline -Foul Odor after Cleansing No -Bioengineered Tissue No -Bleeding Controlled with NA -Other Apligraf intact no debridement -Treatment Response Procedure Tolerated Well #4 Left calf -Time 16:17 -Correct Patient Yes -Correct Side, Site, Position Yes -Correct Procedure Yes -Procedure Performed Yes -Type of Procedure Debridement -Clinical Debridement Subcutaneous -Post Debridement Size (cm) - Length 11.5 -Post Debridement Size (cm) - Width 7.0 -Post Debridement Size (cm) - Depth 0.1 -Total Square Cm 80.50 -Wound/Ulcer Outcome Not Healed -Ulcer Cleansing Rinsed/ Irrigated with Saline -Foul Odor after Cleansing No -Bioengineered Tissue No -Topical Lidocaine (%) 5 -Bleeding Controlled with Pressure -Treatment Response Procedure Tolerated Well #3 RIGHT MEDIAL LE CLUSTER -Time 16:18 -Correct Patient Yes -Correct Side, Site, Position Yes -Correct Procedure Yes -Procedure Performed Yes -Type of Procedure Debridement -Clinical Debridement Subcutaneous -Post Debridement Size (cm) - Length 11.0 -Post Debridement Size (cm) - Width 11.0 -Post Debridement Size (cm) - Depth 0.1 -Total Square Cm 121.00 -Wound/Ulcer Outcome Not Healed -Ulcer Cleansing Rinsed/ Irrigated with Saline -Foul Odor after Cleansing No -Bioengineered Tissue No -Topical Lidocaine (%) 5 -Bleeding Controlled with Pressure -Treatment Response Procedure Tolerated Well [See Physician Procedure note for Specifics] Pain Scale: 0-10 Numeric [Pain] -Is Patient Pain Free? Yes Musculoskeletal: No Tenderness to Palpation of Joints or Extremities, Muscle Wasting, Tenderness - Pain with wound manipulation noted bilateral, - Neurological: Sensory exam intact to light touch and pain Psych/Mental Status: Normal Affect, Appropriate Debridement Note Post-Debridement Measurements/Treatment WC - Nurse 2 - General Ulcer CM Notes Start: 04/25/18 14:52 Freq: Status: Active Protocol: Activity Type Activity Date Activity User E-Sign Co-Sign Detail Recorded Client Recorded Date Recorded By Document 04/25/18 15:45 [id number] 04/25/18 15:54 Document 05/02/18 14:16 [id number] 05/02/18 14:21 Document 05/09/18 10:59 [id number] 05/09/18 11:01 Document 05/16/18 16:14 [id number] 05/16/18 16:21 04/25/18 05/02/18 05/09/18 15:45 14:16 10:59 Wound Center Nurse 2 #7 right anterior proximal LE -Time 15:47 14:16 -Correct Patient Yes Yes No -Correct Side, Site, Position Yes Yes No -Correct Procedure Yes Yes No -Procedure Performed Yes Yes No -Type of Procedure Debridement -Clinical Debridement Subcutaneous -Post Debridement Size (cm) - Length 2.9 2.9 -Post Debridement Size (cm) - Width 1.8 1.8 -Post Debridement Size (cm) - Depth 0.2 0.2 -Total Square Cm 5.22 5.22 -Wound/Ulcer Outcome Not Healed Not Healed -Ulcer Cleansing Rinsed/ Rinsed/ Irrigated with Irrigated with Saline Saline -Foul Odor after Cleansing No No -Bioengineered Tissue No No -Expiration Date 12/06/21 -Product Lot Number [id number] code 102tsl -Percent Used 50 -Saline Lot Number [id number] -Topical Lidocaine (%) 4 -Bleeding Controlled with Pressure NA -Other #9 Theraskin NO DEBRIDEMENT 2x3 applied THERASKIN INTACT NEW WOUND VEIL APPLIED -Treatment Response Procedure Procedure Tolerated Well Tolerated Well #6 LEFT MEDIAL SUPERIOR LEG -Time 15:49 14:17 10:59 -Correct Patient Yes Yes Yes -Correct Side, Site, Position Yes Yes Yes -Correct Procedure Yes Yes Yes -Procedure Performed Yes Yes Yes -Type of Procedure Debridement Debridement Debridement -Clinical Debridement Subcutaneous Subcutaneous Subcutaneous -Post Debridement Size (cm) - Length 1.3 1.3 1.1 -Post Debridement Size (cm) - Width 1.2 1.0 1.2 -Post Debridement Size (cm) - Depth 0.6 0.4 0.7 -Total Square Cm 1.56 1.30 1.32 -Wound/Ulcer Outcome Not Healed Not Healed Not Healed -Ulcer Cleansing Rinsed/ Rinsed/ Rinsed/ Irrigated with Irrigated with Irrigated with Saline Saline Saline -Foul Odor after Cleansing No No No -Bioengineered Tissue No No No -Topical Lidocaine (%) 4 4 -Bleeding Controlled with Pressure Pressure Pressure -Other wet to dry WET TO DRY DAILY -Treatment Response Procedure Procedure Procedure Tolerated Well Tolerated Well Tolerated Well #5 RIGHT POSTERIOR CALF -Time 15:50 14:17 -Correct Patient Yes Yes No -Correct Side, Site, Position Yes Yes No -Correct Procedure Yes Yes No -Procedure Performed Yes Yes No -Post Debridement Size (cm) - Length 13.0 13.0 -Post Debridement Size (cm) - Width 6.1 6.1 -Post Debridement Size (cm) - Depth 0.2 0.2 -Total Square Cm 79.30 79.30 -Wound/Ulcer Outcome Not Healed Not Healed -Ulcer Cleansing Rinsed/ Rinsed/ Irrigated with Irrigated with Saline Saline -Foul Odor after Cleansing No No -Bioengineered Tissue No No -Bleeding Controlled with NA NA -Other no debridement NO DEBRIDEMENT theraskin THERASKIN intact changed INTACT NEW wound veil and WOUND VEIL steri strips APPLIED -Treatment Response Procedure Procedure Tolerated Well Tolerated Well #4 Left calf -Time 15:50 14:18 -Correct Patient Yes Yes No -Correct Side, Site, Position Yes Yes No -Correct Procedure Yes Yes No -Procedure Performed Yes Yes No -Type of Procedure Debridement -Clinical Debridement Subcutaneous -Post Debridement Size (cm) - Length 10.6 -Post Debridement Size (cm) - Width 4.9 -Post Debridement Size (cm) - Depth 0.3 -Total Square Cm 51.94 -Wound/Ulcer Outcome Not Healed Not Healed -Ulcer Cleansing Rinsed/ Rinsed/ Irrigated with Irrigated with Saline Saline -Foul Odor after Cleansing No No -Bioengineered Tissue No No -Topical Lidocaine (%) 4 -Bleeding Controlled with Pressure NA -Other wound veil NO DEBRIDEMENT applied secured THERASKIN with steri INTACT NEW strips WOUND VEIL APPLIED -Treatment Response Procedure Procedure Tolerated Well Tolerated Well #3 RIGHT MEDIAL LE CLUSTER -Time 15:52 14:18 11:00 -Correct Patient Yes Yes Yes -Correct Side, Site, Position Yes Yes Yes -Correct Procedure Yes Yes Yes -Procedure Performed Yes Yes Yes -Type of Procedure Debridement Debridement -Clinical Debridement Subcutaneous Subcutaneous -Post Debridement Size (cm) - Length 10.0 10.1 11 -Post Debridement Size (cm) - Width 10.6 10.7 11.1 -Post Debridement Size (cm) - Depth 0.1 0.1 0.1 -Total Square Cm 106.00 108.07 122.1 -Wound/Ulcer Outcome Not Healed Not Healed Not Healed -Ulcer Cleansing Rinsed/ Rinsed/ Rinsed/ Irrigated with Irrigated with Irrigated with Saline Saline Saline -Foul Odor after Cleansing No No No -Bioengineered Tissue No No Yes -Type of bioengineered Tissue Apligraf -Expiration Date 08/16/21 05/16/18 -Product Lot Number [id number] -Percent Used 100 100 -Saline Lot Number [id number] -Topical Lidocaine (%) 4 -Bleeding Controlled with NA Pressure Pressure -Other no debridement #10 THERASKIN covered with APPLIED WOUND wound veil VEIL COVERED secured with SECURED WITH steri strips STERI STRIPS -Treatment Response Procedure Procedure Procedure Tolerated Well Tolerated Well Tolerated Well Pain Scale: 0-10 Numeric Is Patient Pain Free? Yes Yes Yes 05/16/18 16:14 Wound Center Nurse 2 #7 right anterior proximal LE -Time 16:16 -Correct Patient Yes -Correct Side, Site, Position Yes -Correct Procedure Yes -Procedure Performed Yes -Type of Procedure -Clinical Debridement -Post Debridement Size (cm) - Length -Post Debridement Size (cm) - Width -Post Debridement Size (cm) - Depth -Total Square Cm -Wound/Ulcer Outcome Not Healed -Ulcer Cleansing Rinsed/ Irrigated with Saline -Foul Odor after Cleansing No -Bioengineered Tissue No -Expiration Date -Product Lot Number -Percent Used -Saline Lot Number -Topical Lidocaine (%) -Bleeding Controlled with NA -Other Apligraf Intact no debridement -Treatment Response Procedure Tolerated Well #6 LEFT MEDIAL SUPERIOR LEG -Time 16:16 -Correct Patient Yes -Correct Side, Site, Position Yes -Correct Procedure Yes -Procedure Performed Yes -Type of Procedure Debridement -Clinical Debridement Subcutaneous -Post Debridement Size (cm) - Length 0.4 -Post Debridement Size (cm) - Width 0.4 -Post Debridement Size (cm) - Depth 0.4 -Total Square Cm 0.16 -Wound/Ulcer Outcome Not Healed -Ulcer Cleansing Rinsed/ Irrigated with Saline -Foul Odor after Cleansing No -Bioengineered Tissue No -Topical Lidocaine (%) 4 -Bleeding Controlled with Pressure -Other -Treatment Response Procedure Tolerated Well #5 RIGHT POSTERIOR CALF -Time 16:17 -Correct Patient Yes -Correct Side, Site, Position Yes -Correct Procedure Yes -Procedure Performed Yes -Post Debridement Size (cm) - Length -Post Debridement Size (cm) - Width -Post Debridement Size (cm) - Depth -Total Square Cm -Wound/Ulcer Outcome Not Healed -Ulcer Cleansing Rinsed/ Irrigated with Saline -Foul Odor after Cleansing No -Bioengineered Tissue No -Bleeding Controlled with NA -Other Apligraf intact no debridement -Treatment Response Procedure Tolerated Well #4 Left calf -Time 16:17 -Correct Patient Yes -Correct Side, Site, Position Yes -Correct Procedure Yes -Procedure Performed Yes -Type of Procedure Debridement -Clinical Debridement Subcutaneous -Post Debridement Size (cm) - Length 11.5 -Post Debridement Size (cm) - Width 7.0 -Post Debridement Size (cm) - Depth 0.1 -Total Square Cm 80.50 -Wound/Ulcer Outcome Not Healed -Ulcer Cleansing Rinsed/ Irrigated with Saline -Foul Odor after Cleansing No -Bioengineered Tissue No -Topical Lidocaine (%) 5 -Bleeding Controlled with Pressure -Other -Treatment Response Procedure Tolerated Well #3 RIGHT MEDIAL LE CLUSTER -Time 16:18 -Correct Patient Yes -Correct Side, Site, Position Yes -Correct Procedure Yes -Procedure Performed Yes -Type of Procedure Debridement -Clinical Debridement Subcutaneous -Post Debridement Size (cm) - Length 11.0 -Post Debridement Size (cm) - Width 11.0 -Post Debridement Size (cm) - Depth 0.1 -Total Square Cm 121.00 -Wound/Ulcer Outcome Not Healed -Ulcer Cleansing Rinsed/ Irrigated with Saline -Foul Odor after Cleansing No -Bioengineered Tissue No -Type of bioengineered Tissue -Expiration Date -Product Lot Number -Percent Used -Saline Lot Number -Topical Lidocaine (%) 5 -Bleeding Controlled with Pressure -Other -Treatment Response Procedure Tolerated Well Pain Scale: 0-10 Numeric Is Patient Pain Free? Yes Wound debrided: posterior lateral cluster Laterality: Right Type of Debridement: Excisional debridement Anesthesia Used: 4% Lidocaine Solution Depth: in the subcutaneous layer Percentage of wound debrided: 100 Instrument Used: #15 blade Tissue Removed: fibrous, devitalized subcutaneous, biofilm, slough Severity: Fat Layer Exposed Amount of bleeding with debridement: Mild Bleeding Controlled with: Pressure Patient tolerated procedure well, - - Pre-debridement 11.5 x 11.5 x 0.1 cm, post debridement 11.6 x 11.6 x 0.1 cm - Additional Wound Wound debrided: lateral leg Laterality: Left Type of Debridement: Excisional debridement Anesthesia Used: 4% Lidocaine Solution Depth: in the subcutaneous layer Percentage of wound debrided: 100 Instrument Used: #15 blade Tissue Removed: fibrous, devitalized subcutaneous, biofilm, slough Severity: Fat Layer Exposed Amount of bleeding with debridement: Mild Bleeding Controlled with: Pressure Patient tolerated procedure: Patient tolerated procedure well - Additional Wound Wound debrided: proximal medial Laterality: Left Type of Debridement: Excisional debridement Anesthesia Used: 4% Lidocaine Solution Depth: in the subcutaneous layer Percentage of wound debrided: 100 Instrument Used: #15 blade Tissue Removed: fibrous, devitalized subcutaneous, biofilm, slough Amount of bleeding with debridement: Mild Bleeding Controlled with: Pressure Patient tolerated procedure: Patient tolerated procedure well Assessment/Plan Assessment: Right and left leg ulcers with fat layer exposed, chronic and noninfected. Delayed healing. venous insufficiency. Malnutrition suspected. Lower extremity pain. Multiple comorbidities noted. Calciphylaxis Plan: She was evaluated today and her care plan was discussed. She is amenable for debridement again today which was performed to the posterior lateral right leg cluster site as well as the proximal medial and lateral left leg ulcer sites. All residual Thera skin product was removed during the debridement process. The Apligraf that was applied last week to the medial anterior right leg remains intact. Additional product will be ordered for next week. She tolerated this well. She is advised to change the dressing every other day with Lacey and overlying gauze to pack into the proximal left leg wound otherwise she will keep the other parts of the dressings intact. Home health will help her with this once this upcoming week and she will do that the other day. She demonstrates understanding. To continue with light compression. She has a follow up with Dr. Pelaez for evaluation of her arterial Doppler exam which appeared to have distal perfusion. A biopsy of the legs skin was previously obtained and the results were reviewed today and will be placed in her chart. I reiterated the importance of taking pressure off of these wound sites. She was told by her doctor to stop taking glucerna as it had too much calcium. To only take nutritional supplementation but do not have additional calcium in them. To complete course of sodium thiosulfate for treatment of calciphylaxis as prescribed once a week. We did also discuss the opportunity to go to the operating room for more aggressive debridement application of advanced wound care product. She is amenable to consider this at this time under IV sedation and local sedation. Prior authorization for Amniofill, advanced wound care product derived, from amniotic cord and umbilical cord cells. She understands a preoperative history and physical exam will need to be obtained by her primary care physician with diagnostic data to confirm her medical safety prior to proceeding. She is concerned she has had previous issues with general anesthesia and I reassured her this procedure will not be performed under general anesthesia and is a same-day surgery. We discussed the preoperative indications, planned procedures, possible benefits, risks, complications, and anticipated healing time and management. Surgical consents will be obtained. I answered all of her questions. To return to the wound healing center in 1 week or call sooner if she has any questions or concerns.
[2018-05-23 13:55] VITALS: BP 126/77; PULSE 97; RESP 18; TEMP 37; BMI 35.4
--- NOTE | 2018-05-23 15:46 | PCM.WC.PN ---
(1) Ulcer of right lower extremity with fat layer exposed Status: Chronic Code(s): L97.912 - Non-pressure chronic ulcer of unspecified part of right lower leg with fat layer exposed (2) Ulcer of left lower extremity with fat layer exposed Status: Chronic Code(s): L97.922 - Non-pressure chronic ulcer of unspecified part of left lower leg with fat layer exposed (3) Right leg pain Status: Chronic Code(s): M79.604 - Pain in right leg (4) Calciphylaxis Status: Chronic Code(s): E83.59 - Other disorders of calcium metabolism (5) Pain in left leg Status: Chronic Code(s): M79.605 - Pain in left leg (6) Delayed wound healing Status: Chronic Code(s): T14.8XXD - Other injury of unspecified body region, subsequent encounter (7) Localized edema Status: Chronic Code(s): R60.0 - Localized edema (8) Venous insufficiency (chronic) (peripheral) Status: Chronic Code(s): I87.2 - Venous insufficiency (chronic) (peripheral) Type of Wound Date of Service: 05/26/18 Chief Complaint: Wounds/ulcers of b/l lower legs History of Wound: Di is a 72 year old female that returns for follow up of bilateral leg ulcers. She has been changing the dressings every other day and denies odor or redness to either limb. She had several theraskin applications applied and one apligraft application last week. She follows with Dr. Carbajal with pain management. Her venous studies showed incompetent left SFJ. She will follow up with Dr. Pelaez regarding the results of this testing for possible procedure to address SFJ incompetence. She denies fever, chills, nausea, vomiting. She denies calf pain. She is with her today. She was diagnosed with calciphylaxis and had a biopsy of her legs skin to confirm this diagnosis and has seen dog catcher, Dr. Almonte. She continues with IV infusion of sodium thiosulfate for calciphylaxis treatment via PICC line. She has been improving her offloading by avoiding direct pressure to the back of her legs. She denies fever, chill, nausea, vomiting, loss of appetite. She is ready to proceed with more aggressive debridement application of advanced wound care product, Amniofill in the operating room. She had her preoperative history and physical performed and is waiting for laboratory review to complete her medical clearance. Progress of Wound: Improving - Physical Exam Vital Signs Temp Pulse Resp BP 98.6 F 97 18 126/77 H 05/23/18 13:55 05/23/18 13:55 05/23/18 13:55 05/23/18 13:55 General: Alert, Oriented x3, Cooperative HEENT: Atraumatic Extremities: No cyanosis, Capillary Refill Less than 3 Seconds, No Calf Tenderness - Negative Kimberly and Layton sign bilateral, Diminished Peripheral Pulses, Edema - Mild to moderate bilateral lower extremity unchanged compared to previous week, Tenderness - Pain mild to moderate with palpation and debridement of wounds bilateral legs Skin: Ulcer/ Wound - No purulence, erythema, streaking, odor, or cutaneous infection bilateral lower extremities. Peripheral epithelialization is noted to the wound site. The wound beds are granular and appear healthy. The peripheral skin is atrophic and hairless. No interdigital macerations noted bilateral. There is no eschar or jumana necrosis bilateral Wound Measurements and Assessment WC - Nurse 1 - General Ulcer Measurement Start: 04/25/18 14:52 Freq: Status: Active Protocol: Activity Type Activity Date Activity User E-Sign Co-Sign Detail Recorded Client Recorded Date Recorded By Document 05/23/18 13:55 [facility] [id number] 05/23/18 14:07 [facility] 05/23/18 13:55 Wound Center Nurse 1 [Ulcer Assessment] #7 right anterior proximal LE -Combined with other wound No -Current Size (cm) - Length 2.6 -Current Size (cm) - Width 2.3 -Current Size (cm) - Depth 0.3 -Total Square Cm 5.98 -Photo Taken No -Epithelialization None Present -Tunneling No -Undermining/Tunneling No -Circular Undermining No -Exudate Amt Small (1-33%) -Exudate Type Serosanguineous -Wound Margin Thickened & Rolled Under -Granulation Amt Medium (34-66%) -Granulation Quality Red -Slough/Fibrin Yes -Necrosis Amt Small (1-33%) -Necrotic Tissue Type Adherent Slough -Structure Exposed None/Limited to Skin Breakdown -Texture (Gabriella-wound Skin Appearance) Scarring -Moisture (Gabriella-wound Skin Appearance Maceration ) -Color (Gabriella-wound Skin Appearance) Erythema -Temperature (Gabriella-wound Skin No Abnormality Appearance) (Pt Warm) -Tenderness on Palpation (Gabriella-wound Yes Skin Appearance) -Ulcer Cleansing Wound Cleanser -Foul Odor after Cleansing No -Anesthetic Used 4% Lidocaine Solution 5% Lidocaine Gel #6 LEFT MEDIAL SUPERIOR LEG -Combined with other wound No -Current Size (cm) - Length 0.9 -Current Size (cm) - Width 0.6 -Current Size (cm) - Depth 0.4 -Total Square Cm 0.54 -Photo Taken No -Tunneling No -Undermining/Tunneling No -Circular Undermining No -Exudate Amt Small (1-33%) -Exudate Type Serosanguineous -Wound Margin Thickened & Rolled Under -Granulation Amt Medium (34-66%) -Granulation Quality Red -Slough/Fibrin Yes -Necrosis Amt Medium (34-66%) -Necrotic Tissue Type Adherent Slough -Texture (Gabriella-wound Skin Appearance) Scarring -Moisture (Gabriella-wound Skin Appearance Assessed ) -Color (Gabriella-wound Skin Appearance) Assessed -Temperature (Gabriella-wound Skin No Abnormality Appearance) (Pt Warm) -Tenderness on Palpation (Gabriella-wound Yes Skin Appearance) -Ulcer Cleansing Wound Cleanser -Foul Odor after Cleansing No -Anesthetic Used 4% Lidocaine Solution 5% Lidocaine Gel #4 Left calf -Combined with other wound No -Current Size (cm) - Length 10.2 -Current Size (cm) - Width 4.5 -Current Size (cm) - Depth 0.2 -Total Square Cm 45.90 -Photo Taken No -Tunneling No -Undermining/Tunneling No -Circular Undermining No -Exudate Amt Medium (34-66%) -Exudate Type Serosanguineous -Wound Margin Thickened & Rolled Under -Granulation Amt Medium (34-66%) -Granulation Quality Timblin -Slough/Fibrin Yes -Necrosis Amt Medium (34-66%) -Necrotic Tissue Type Adherent Slough -Structure Exposed None/Limited to Skin Breakdown -Texture (Gabriella-wound Skin Appearance) Scarring -Moisture (Gabriella-wound Skin Appearance Dry/Scaly ) -Color (Gabriella-wound Skin Appearance) Erythema -Temperature (Gabriella-wound Skin No Abnormality Appearance) (Pt Warm) -Tenderness on Palpation (Gabriella-wound No Skin Appearance) -Ulcer Cleansing Wound Cleanser -Foul Odor after Cleansing No -Anesthetic Used 4% Lidocaine Solution 5% Lidocaine Gel #3 RIGHT MEDIAL LE CLUSTER -Combined with other wound No -Current Size (cm) - Length 14 -Current Size (cm) - Width 24.5 -Current Size (cm) - Depth 0.2 -Total Square Cm 343.0 -Photo Taken No -Tunneling No -Undermining/Tunneling No -Circular Undermining No -Exudate Amt Large (67-100%) -Exudate Type Serosanguineous -Wound Margin Thickened & Rolled Under -Granulation Amt Large (67-100%) -Granulation Quality Red -Slough/Fibrin Yes -Necrosis Amt Small (1-33%) -Necrotic Tissue Type Adherent Slough -Texture (Gabriella-wound Skin Appearance) Scarring -Moisture (Gabriella-wound Skin Appearance Maceration ) -Color (Gabriella-wound Skin Appearance) Erythema Palor -Temperature (Gabriella-wound Skin No Abnormality Appearance) (Pt Warm) -Tenderness on Palpation (Gabriella-wound Yes Skin Appearance) -Ulcer Cleansing Wound Cleanser -Foul Odor after Cleansing No -Anesthetic Used 4% Lidocaine Solution 5% Lidocaine Gel [Edema Assessment] -Lower Limb Edema Present Yes -Right Calf (cm) 37.6 -Right Ankle (cm) 24 -Left Calf (cm) 35 -Left Ankle (cm) 24 WC - Nurse 2 - General Ulcer CM Notes Start: 04/25/18 14:52 Freq: Status: Active Protocol: Activity Type Activity Date Activity User E-Sign Co-Sign Detail Recorded Client Recorded Date Recorded By Document 05/23/18 14:26 [id number] 05/23/18 14:58 05/23/18 14:26 Wound Center Nurse 2 [Procedure/Treatment] #7 right anterior proximal LE -Time 14:45 -Correct Patient Yes -Correct Side, Site, Position Yes -Correct Procedure Yes -Procedure Performed Yes -Type of Procedure Debridement -Clinical Debridement Subcutaneous -Post Debridement Size (cm) - Length 2.7 -Post Debridement Size (cm) - Width 2.4 -Post Debridement Size (cm) - Depth 0.3 -Total Square Cm 6.48 -Wound/Ulcer Outcome Not Healed -Ulcer Cleansing Rinsed/ Irrigated with Saline -Foul Odor after Cleansing No -Bioengineered Tissue No -Topical Lidocaine (%) 5 -Bleeding Controlled with Pressure -Treatment Response Procedure Tolerated Well #6 LEFT MEDIAL SUPERIOR LEG -Time 14:46 -Correct Patient Yes -Correct Side, Site, Position Yes -Correct Procedure Yes -Procedure Performed Yes -Type of Procedure Debridement -Clinical Debridement Subcutaneous -Post Debridement Size (cm) - Length 1.0 -Post Debridement Size (cm) - Width 0.7 -Post Debridement Size (cm) - Depth 0.4 -Total Square Cm 0.70 -Wound/Ulcer Outcome Not Healed -Ulcer Cleansing Rinsed/ Irrigated with Saline -Foul Odor after Cleansing No -Bioengineered Tissue No -Topical Lidocaine (%) 5 -Bleeding Controlled with Pressure -Treatment Response Procedure Tolerated Well #5 RIGHT POSTERIOR CALF -Time 14:46 -Correct Patient Yes -Correct Side, Site, Position Yes -Correct Procedure Yes -Procedure Performed Yes -Type of Procedure Debridement -Clinical Debridement Subcutaneous -Post Debridement Size (cm) - Length 12.1 -Post Debridement Size (cm) - Width 12.1 -Post Debridement Size (cm) - Depth 0.1 -Total Square Cm 146.41 -Wound/Ulcer Outcome Not Healed -Ulcer Cleansing Rinsed/ Irrigated with Saline -Foul Odor after Cleansing No -Bioengineered Tissue No -Topical Lidocaine (%) 5 -Bleeding Controlled with Pressure -Treatment Response Procedure Tolerated Well #4 Left calf -Time 14:46 -Correct Patient Yes -Correct Side, Site, Position Yes -Correct Procedure Yes -Procedure Performed Yes -Type of Procedure Debridement -Clinical Debridement Subcutaneous -Post Debridement Size (cm) - Length 10.3 -Post Debridement Size (cm) - Width 4.6 -Post Debridement Size (cm) - Depth 0.2 -Total Square Cm 47.38 -Wound/Ulcer Outcome Not Healed -Ulcer Cleansing Rinsed/ Irrigated with Saline -Foul Odor after Cleansing No -Bioengineered Tissue No -Topical Lidocaine (%) 5 -Bleeding Controlled with Pressure -Treatment Response Procedure Tolerated Well #3 RIGHT MEDIAL LE CLUSTER -Time 14:46 -Correct Patient Yes -Correct Side, Site, Position Yes -Correct Procedure Yes -Procedure Performed Yes -Type of Procedure Debridement -Clinical Debridement Subcutaneous -Post Debridement Size (cm) - Length 14.1 -Post Debridement Size (cm) - Width 24.6 -Post Debridement Size (cm) - Depth 0.2 -Total Square Cm 346.86 -Wound/Ulcer Outcome Not Healed -Ulcer Cleansing Rinsed/ Irrigated with Saline -Foul Odor after Cleansing No -Bioengineered Tissue Yes -Type of bioengineered Tissue Apligraf -Expiration Date 05/31/18 -Product Lot Number [id number] -Percent Used 100 -Saline Lot Number [id number] -Topical Lidocaine (%) 5 -Bleeding Controlled with Pressure -Treatment Response Procedure Tolerated Well [See Physician Procedure note for Specifics] Pain Scale: 0-10 Numeric [Pain] -Is Patient Pain Free? Yes Musculoskeletal: No Tenderness to Palpation of Joints or Extremities, Muscle Wasting, - - Compartments remain soft on palpation bilateral lower extremities Neurological: Sensory exam intact to light touch and pain Psych/Mental Status: Normal Affect, Appropriate Debridement Note Post-Debridement Measurements/Treatment WC - Nurse 2 - General Ulcer CM Notes Start: 04/25/18 14:52 Freq: Status: Active Protocol: Activity Type Activity Date Activity User E-Sign Co-Sign Detail Recorded Client Recorded Date Recorded By Document 04/25/18 15:45 [id number] 04/25/18 15:54 Document 05/02/18 14:16 [id number] 05/02/18 14:21 Document 05/09/18 10:59 [id number] 05/09/18 11:01 Document 05/16/18 16:14 [id number] 05/16/18 16:21 Document 05/23/18 14:26 [id number] 05/23/18 14:58 04/25/18 05/02/18 05/09/18 15:45 14:16 10:59 Wound Center Nurse 2 #7 right anterior proximal LE -Time 15:47 14:16 -Correct Patient Yes Yes No -Correct Side, Site, Position Yes Yes No -Correct Procedure Yes Yes No -Procedure Performed Yes Yes No -Type of Procedure Debridement -Clinical Debridement Subcutaneous -Post Debridement Size (cm) - Length 2.9 2.9 -Post Debridement Size (cm) - Width 1.8 1.8 -Post Debridement Size (cm) - Depth 0.2 0.2 -Total Square Cm 5.22 5.22 -Wound/Ulcer Outcome Not Healed Not Healed -Ulcer Cleansing Rinsed/ Rinsed/ Irrigated with Irrigated with Saline Saline -Foul Odor after Cleansing No No -Bioengineered Tissue No No -Expiration Date 12/06/21 -Product Lot Number [id number] code 102tsl -Percent Used 50 -Saline Lot Number [id number] -Topical Lidocaine (%) 4 -Bleeding Controlled with Pressure NA -Other #9 Theraskin NO DEBRIDEMENT 2x3 applied THERASKIN INTACT NEW WOUND VEIL APPLIED -Treatment Response Procedure Procedure Tolerated Well Tolerated Well #6 LEFT MEDIAL SUPERIOR LEG -Time 15:49 14:17 10:59 -Correct Patient Yes Yes Yes -Correct Side, Site, Position Yes Yes Yes -Correct Procedure Yes Yes Yes -Procedure Performed Yes Yes Yes -Type of Procedure Debridement Debridement Debridement -Clinical Debridement Subcutaneous Subcutaneous Subcutaneous -Post Debridement Size (cm) - Length 1.3 1.3 1.1 -Post Debridement Size (cm) - Width 1.2 1.0 1.2 -Post Debridement Size (cm) - Depth 0.6 0.4 0.7 -Total Square Cm 1.56 1.30 1.32 -Wound/Ulcer Outcome Not Healed Not Healed Not Healed -Ulcer Cleansing Rinsed/ Rinsed/ Rinsed/ Irrigated with Irrigated with Irrigated with Saline Saline Saline -Foul Odor after Cleansing No No No -Bioengineered Tissue No No No -Topical Lidocaine (%) 4 4 -Bleeding Controlled with Pressure Pressure Pressure -Other wet to dry WET TO DRY DAILY -Treatment Response Procedure Procedure Procedure Tolerated Well Tolerated Well Tolerated Well #5 RIGHT POSTERIOR CALF -Time 15:50 14:17 -Correct Patient Yes Yes No -Correct Side, Site, Position Yes Yes No -Correct Procedure Yes Yes No -Procedure Performed Yes Yes No -Type of Procedure -Clinical Debridement -Post Debridement Size (cm) - Length 13.0 13.0 -Post Debridement Size (cm) - Width 6.1 6.1 -Post Debridement Size (cm) - Depth 0.2 0.2 -Total Square Cm 79.30 79.30 -Wound/Ulcer Outcome Not Healed Not Healed -Ulcer Cleansing Rinsed/ Rinsed/ Irrigated with Irrigated with Saline Saline -Foul Odor after Cleansing No No -Bioengineered Tissue No No -Topical Lidocaine (%) -Bleeding Controlled with NA NA -Other no debridement NO DEBRIDEMENT theraskin THERASKIN intact changed INTACT NEW wound veil and WOUND VEIL steri strips APPLIED -Treatment Response Procedure Procedure Tolerated Well Tolerated Well #4 Left calf -Time 15:50 14:18 -Correct Patient Yes Yes No -Correct Side, Site, Position Yes Yes No -Correct Procedure Yes Yes No -Procedure Performed Yes Yes No -Type of Procedure Debridement -Clinical Debridement Subcutaneous -Post Debridement Size (cm) - Length 10.6 -Post Debridement Size (cm) - Width 4.9 -Post Debridement Size (cm) - Depth 0.3 -Total Square Cm 51.94 -Wound/Ulcer Outcome Not Healed Not Healed -Ulcer Cleansing Rinsed/ Rinsed/ Irrigated with Irrigated with Saline Saline -Foul Odor after Cleansing No No -Bioengineered Tissue No No -Topical Lidocaine (%) 4 -Bleeding Controlled with Pressure NA -Other wound veil NO DEBRIDEMENT applied secured THERASKIN with steri INTACT NEW strips WOUND VEIL APPLIED -Treatment Response Procedure Procedure Tolerated Well Tolerated Well #3 RIGHT MEDIAL LE CLUSTER -Time 15:52 14:18 11:00 -Correct Patient Yes Yes Yes -Correct Side, Site, Position Yes Yes Yes -Correct Procedure Yes Yes Yes -Procedure Performed Yes Yes Yes -Type of Procedure Debridement Debridement -Clinical Debridement Subcutaneous Subcutaneous -Post Debridement Size (cm) - Length 10.0 10.1 11 -Post Debridement Size (cm) - Width 10.6 10.7 11.1 -Post Debridement Size (cm) - Depth 0.1 0.1 0.1 -Total Square Cm 106.00 108.07 122.1 -Wound/Ulcer Outcome Not Healed Not Healed Not Healed -Ulcer Cleansing Rinsed/ Rinsed/ Rinsed/ Irrigated with Irrigated with Irrigated with Saline Saline Saline -Foul Odor after Cleansing No No No -Bioengineered Tissue No No Yes -Type of bioengineered Tissue Apligraf -Expiration Date 08/16/21 05/16/18 -Product Lot Number [id number] -Percent Used 100 100 -Saline Lot Number [id number] -Topical Lidocaine (%) 4 -Bleeding Controlled with NA Pressure Pressure -Other no debridement #10 THERASKIN covered with APPLIED WOUND wound veil VEIL COVERED secured with SECURED WITH steri strips STERI STRIPS -Treatment Response Procedure Procedure Procedure Tolerated Well Tolerated Well Tolerated Well Pain Scale: 0-10 Numeric Is Patient Pain Free? Yes Yes Yes 05/16/18 05/23/18 16:14 14:26 Wound Center Nurse 2 #7 right anterior proximal LE -Time 16:16 14:45 -Correct Patient Yes Yes -Correct Side, Site, Position Yes Yes -Correct Procedure Yes Yes -Procedure Performed Yes Yes -Type of Procedure Debridement -Clinical Debridement Subcutaneous -Post Debridement Size (cm) - Length 2.7 -Post Debridement Size (cm) - Width 2.4 -Post Debridement Size (cm) - Depth 0.3 -Total Square Cm 6.48 -Wound/Ulcer Outcome Not Healed Not Healed -Ulcer Cleansing Rinsed/ Rinsed/ Irrigated with Irrigated with Saline Saline -Foul Odor after Cleansing No No -Bioengineered Tissue No No -Expiration Date -Product Lot Number -Percent Used -Saline Lot Number -Topical Lidocaine (%) 5 -Bleeding Controlled with NA Pressure -Other Apligraf Intact no debridement -Treatment Response Procedure Procedure Tolerated Well Tolerated Well #6 LEFT MEDIAL SUPERIOR LEG -Time 16:16 14:46 -Correct Patient Yes Yes -Correct Side, Site, Position Yes Yes -Correct Procedure Yes Yes -Procedure Performed Yes Yes -Type of Procedure Debridement Debridement -Clinical Debridement Subcutaneous Subcutaneous -Post Debridement Size (cm) - Length 0.4 1.0 -Post Debridement Size (cm) - Width 0.4 0.7 -Post Debridement Size (cm) - Depth 0.4 0.4 -Total Square Cm 0.16 0.70 -Wound/Ulcer Outcome Not Healed Not Healed -Ulcer Cleansing Rinsed/ Rinsed/ Irrigated with Irrigated with Saline Saline -Foul Odor after Cleansing No No -Bioengineered Tissue No No -Topical Lidocaine (%) 4 5 -Bleeding Controlled with Pressure Pressure -Other -Treatment Response Procedure Procedure Tolerated Well Tolerated Well #5 RIGHT POSTERIOR CALF -Time 16:17 14:46 -Correct Patient Yes Yes -Correct Side, Site, Position Yes Yes -Correct Procedure Yes Yes -Procedure Performed Yes Yes -Type of Procedure Debridement -Clinical Debridement Subcutaneous -Post Debridement Size (cm) - Length 12.1 -Post Debridement Size (cm) - Width 12.1 -Post Debridement Size (cm) - Depth 0.1 -Total Square Cm 146.41 -Wound/Ulcer Outcome Not Healed Not Healed -Ulcer Cleansing Rinsed/ Rinsed/ Irrigated with Irrigated with Saline Saline -Foul Odor after Cleansing No No -Bioengineered Tissue No No -Topical Lidocaine (%) 5 -Bleeding Controlled with NA Pressure -Other Apligraf intact no debridement -Treatment Response Procedure Procedure Tolerated Well Tolerated Well #4 Left calf -Time 16:17 14:46 -Correct Patient Yes Yes -Correct Side, Site, Position Yes Yes -Correct Procedure Yes Yes -Procedure Performed Yes Yes -Type of Procedure Debridement Debridement -Clinical Debridement Subcutaneous Subcutaneous -Post Debridement Size (cm) - Length 11.5 10.3 -Post Debridement Size (cm) - Width 7.0 4.6 -Post Debridement Size (cm) - Depth 0.1 0.2 -Total Square Cm 80.50 47.38 -Wound/Ulcer Outcome Not Healed Not Healed -Ulcer Cleansing Rinsed/ Rinsed/ Irrigated with Irrigated with Saline Saline -Foul Odor after Cleansing No No -Bioengineered Tissue No No -Topical Lidocaine (%) 5 5 -Bleeding Controlled with Pressure Pressure -Other -Treatment Response Procedure Procedure Tolerated Well Tolerated Well #3 RIGHT MEDIAL LE CLUSTER -Time 16:18 14:46 -Correct Patient Yes Yes -Correct Side, Site, Position Yes Yes -Correct Procedure Yes Yes -Procedure Performed Yes Yes -Type of Procedure Debridement Debridement -Clinical Debridement Subcutaneous Subcutaneous -Post Debridement Size (cm) - Length 11.0 14.1 -Post Debridement Size (cm) - Width 11.0 24.6 -Post Debridement Size (cm) - Depth 0.1 0.2 -Total Square Cm 121.00 346.86 -Wound/Ulcer Outcome Not Healed Not Healed -Ulcer Cleansing Rinsed/ Rinsed/ Irrigated with Irrigated with Saline Saline -Foul Odor after Cleansing No No -Bioengineered Tissue No Yes -Type of bioengineered Tissue Apligraf -Expiration Date 05/31/18 -Product Lot Number [id number] -Percent Used 100 -Saline Lot Number [id number] -Topical Lidocaine (%) 5 5 -Bleeding Controlled with Pressure Pressure -Other -Treatment Response Procedure Procedure Tolerated Well Tolerated Well Pain Scale: 0-10 Numeric Is Patient Pain Free? Yes Yes Wound debrided: proximal medial leg Laterality: Left Type of Debridement: Excisional debridement Anesthesia Used: 4% Lidocaine Solution Depth: in the subcutaneous layer Percentage of wound debrided: 100 Instrument Used: #15 blade Tissue Removed: fibrous, devitalized subcutaneous, biofilm, slough Severity: Fat Layer Exposed Amount of bleeding with debridement: Mild Bleeding Controlled with: Pressure Patient tolerated procedure well - Additional Wound Wound debrided: lateral leg Laterality: Left Type of Debridement: Excisional debridement Anesthesia Used: 4% Lidocaine Solution Depth: in the subcutaneous layer Percentage of wound debrided: 100 Instrument Used: #15 blade Tissue Removed: fibrous, devitalized subcutaneous, biofilm, slough Severity: Fat Layer Exposed Amount of bleeding with debridement: Mild Patient tolerated procedure: Patient tolerated procedure well - Additional Wound Wound debrided: anterior leg Laterality: Right Type of Debridement: Excisional debridement Anesthesia Used: 4% Lidocaine Solution Depth: in the subcutaneous layer Percentage of wound debrided: 100 Instrument Used: #15 blade Tissue Removed: fibrous, devitalized subcutaneous, biofilm, slough Severity: Fat Layer Exposed Amount of bleeding with debridement: Mild Bleeding Controlled with: Pressure Patient tolerated procedure: Patient tolerated procedure well - Additional Wound Wound debrided: lateral and posterior leg Laterality: Right Type of Debridement: Excisional debridement Anesthesia Used: 4% Lidocaine Solution Depth: in the subcutaneous layer Percentage of wound debrided: 100 Instrument Used: #15 blade Tissue Removed: fibrous, devitalized subcutaneous, biofilm, slough Severity: Fat Layer Exposed Amount of bleeding with debridement: Mild Bleeding Controlled with: Pressure Patient tolerated procedure: Patient tolerated procedure well Assessment/Plan Assessment: Right and left leg ulcers with fat layer exposed, chronic and noninfected. Delayed healing. venous insufficiency. Malnutrition suspected. Lower extremity pain. Multiple comorbidities noted. Calciphylaxis Plan: She was evaluated today and her care plan was discussed. She is amenable for debridement again today which was performed to the posterior lateral right leg cluster site as well as the proximal medial and lateral left leg ulcer sites. Additional product, apligraft, was applied according to standard protocol to the right anterior lateral leg and all of the product units were used. This was performed after verbal consent and was lastly secured with a wound veil and Steri-Strips. She tolerated this well. To keep this intact until follow-up next week on her surgery date. She was advised to change the other ulcer dressings every other day with Lacey and overlying gauze to pack into the proximal left leg wound otherwise she will keep the other parts of the dressings intact. Home health will help her with this once this upcoming week and she will do that the other day. She demonstrates understanding. To continue with light compression. She has a follow up with Dr. Pelaez for evaluation of her arterial Doppler exam which appeared to have distal perfusion. A biopsy of the legs skin was previously obtained and the results were reviewed today and will be placed in her chart. I reiterated the importance of taking pressure off of these wound sites. She was told by her doctor to stop taking glucerna as it had too much calcium. To only take nutritional supplementation but do not have additional calcium in them. To complete course of sodium thiosulfate for treatment of calciphylaxis as prescribed once a week. We did also discuss the opportunity to go to the operating room for more aggressive debridement application of advanced wound care product. She is amenable to consider this at this time under IV sedation and local sedation. Prior authorization for Amniofill, advanced wound care product derived, from amniotic cord and umbilical cord cells was obtained. She understands a preoperative history and physical exam this is been completed the clearing physician as well as myself will review her labs prior to making a final clearance decision. We discussed the preoperative indications, planned procedures, possible benefits, risks, complications, and anticipated healing time and management. Surgical consents were obtained. No guarantees are made. She understands risks and complications include but are not limited to the following: Scarring, infection, pain, swelling, delayed or nonhealing, need for further surgery, allergic reaction, blood clot, chronic pain, loss of limb, function, life. I answered all of her questions. To return to the operating room next Monday for the aforementioned procedure, and the wound healing center in 2 week. I answered all of her questions. She was advised to call sooner if she has any questions or concerns.
== END 2018-05-25 23:59 ==
LOC: WC 14:00
PROVIDERS: Family Provider Internal Medicine; PCP Internal Medicine; Visit Provider Podiatrist
DX: I87.2 Venous insufficiency (chronic) (peripheral) (principal); R60.0 Localized edema; M79.605 Pain in left leg; E83.59 Other disorders of calcium metabolism; M79.604 Pain in right leg; L97.822 Non-pressure chronic ulcer of other part of left lower leg with fat layer exposed; L97.812 Non-pressure chronic ulcer of other part of right lower leg with fat layer exposed
CPT/HCPCS: 11042; 11045; 15271; 15272; Q4101; Q4121

== ENCOUNTER → 2018-05-24 09:26 | Outpatient (CLI) | payer MEDICARE, SELFPAY ==
[2018-05-24 09:40] VITALS: BP 110/75; PULSE 83; RESP 16; TEMP 36.8; BMI 28.3
== END ==
PROVIDERS: Family Provider Internal Medicine; PCP Internal Medicine; Visit Provider Internal Medicine Nephrology
DX: E83.59 Other disorders of calcium metabolism (principal); Z01.818 Encounter for other preprocedural examination
CPT/HCPCS: 96365; J7050; A4216; J3490

== ENCOUNTER → 2018-05-29 12:18 | Outpatient (CLI) | payer MEDICARE, SELFPAY ==
[2018-05-29 13:05] VITALS: BP 139/69; PULSE 78; RESP 16; TEMP 36.3; O2SAT 94; BMI 28.1
== END ==
PROVIDERS: Family Provider Internal Medicine; PCP Internal Medicine; Visit Provider Internal Medicine Nephrology
DX: E83.59 Other disorders of calcium metabolism (principal)
CPT/HCPCS: 96365; J7050; A4216; J3490

== ENCOUNTER → 2018-05-31 09:26 | Outpatient (CLI) | payer MEDICARE, SELFPAY ==
[2018-05-31 09:34] VITALS: BP 127/73; PULSE 75; RESP 18; TEMP 36.1; O2SAT 94
== END ==
PROVIDERS: Family Provider Internal Medicine; PCP Internal Medicine; Visit Provider Internal Medicine Nephrology
DX: E83.59 Other disorders of calcium metabolism (principal)
CPT/HCPCS: 96365; J7050; A4216; J3490

== ENCOUNTER 2018-06-01 11:03 | Day surgery (SDC) | payer MEDICARE, SELFPAY ==
[2018-06-01 11:24] VITALS: BP 129/58; PULSE 82; RESP 16; TEMP 36.4; O2SAT 97; BMI 29.0
[2018-06-01] MEDS: Bupivacaine Mpf 0.5% 30 ML VIAL (13:23)
[2018-06-01 14:48] VITALS: BP 115/59; BP 129/58; BP 132/70; PULSE 72; PULSE 73; RESP 14; TEMP 36.8; O2SAT 99
[2018-06-01 15:00] VITALS: BP 129/58; BP 130/76; PULSE 70; RESP 16; O2SAT 98
--- NOTE | 2018-06-01 15:03 | PCM.DC.POD ---
Discharge Diet: No Restrictions Discharge Activity: May Not Shower Weight Bearing Status: Full weight bearing Keep extremity elevated above heart level: Left Leg, Right Leg Call your doctor if your incision/area has: Continuous Slow Oozing, Sudden Increased Bleeding, Increased Pain/ Swelling, Increased Redness, Foul Smelling Discharge Call your doctor if you observe: Fever of 101 or Higher, Swelling in the ankles, Calf discomfort, Uncontrolled pain Cleanse incision/area with: Keep Dressing Clean & Dry Allergies/Adverse Reactions: Allergies amlodipine besylate [From Norvasc] Allergy (Verified 05/25/18 14:43) Unknown ceftriaxone Allergy (Verified 05/25/18 14:43) Rash doxazosin [From Cardura] Allergy (Verified 05/25/18 14:44) Unknown doxazosin mesylate [From Cardura] Allergy (Verified 05/25/18 14:43) Other VEINS TURNED RED doxycycline Allergy (Verified 05/25/18 14:43) Unknown Pt doesn't remember enalapril maleate [From Vasotec] Allergy (Verified 05/25/18 14:43) Rash enalaprilat dihydrate [From Vasotec] Allergy (Verified 05/25/18 14:43) Rash hydroxyzine HCl [From Vistaril] Allergy (Verified 05/25/18 14:43) Rash hydroxyzine pamoate [From Vistaril] Allergy (Verified 05/25/18 14:43) Rash meperidine HCl [From Demerol] Allergy (Verified 05/25/18 14:43) Rash Sulfa (Sulfonamide Antibiotics) Allergy (Verified 05/25/18 14:43) Hives sulfamethoxazole [From Bactrim] Allergy (Verified 05/25/18 14:43) Hives trimethoprim [From Bactrim] Allergy (Verified 05/25/18 14:43) Hives Medications to take at Discharge Gabapentin [Neurontin] 100 mg PO TID 09/29/17 Fluoxetine [Prozac] 20 mg PO DAILY 09/30/17 furosemide 40 mg tablet 20 mg PO DAILY tab 10/11/17 Metoprolol Tartrate [Lopressor (beta alok)] 25 mg PO BID 12/12/17 Potassium Chloride [K-Tab ER] 10 meq PO QDAY 12/12/17 Morphine Sulfate [Morphine Sulfate ER] 15 mg PO DAILY 04/08/18 Iron Polysaccharide Complex [Ferrex 150] 150 mg PO DAILYCM 05/25/18 Prednisone 10 mg PO DAILY 05/25/18 Primary Care Physician: Aaron Tidwell MD [Primary Care Provider] - Test Results: Test results from this visit will be discussed in further detail at your follow-up appointment, if applicable. Please Follow Up With: Nora Dee DPM When: next Monday at [facility]; call [phone] if questions/concerns Proposed Discharge Date: 06/01/18
[2018-06-01 15:04] VITALS: BP 129/58; BP 130/76; PULSE 74; RESP 16; TEMP 36.6; O2SAT 99
--- NOTE | 2018-06-01 15:06 | PCM.IMDPSTOP ---
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 let leg ulcer with fat layer exposed. calciphylaxis Post-Operative Diagnosis: right leg ulcer with fat layer exposed. let leg ulcer with fat layer exposed. calciphylaxis Surgery/Procedure Performed:: subcutaneous excisional debridement of right leg ulcers. subcutaneous excisional debridement of left leg ulcers. application of advanced wound care product, amniofill Description of Surgical Findings:: hemostasis controlled no infection see detailed operation report The patient tolerated the procedure and anesthesia well. She was transferred to the PACU with vital signs stable and vascular status intact to bilateral lower extremities. Postoperative orders are placed electronically. She will be discharged home upon continued PACU stability. Estimated Blood Loss: <40 mL Specimen's removed: none Type of Anesthesia:: Local - Preoperative: 1-1 mix of 1% lidocaine plain and 0.5% Marcaine plain administered subdermally to all ulcer sites bilateral legs, MAC - Admit VTE Documentation VTE Present on Admission: No VTE Mechan Device Prophylaxis: SCD's VTE Pharm Prophylaxis ordered?: No Reason prophylaxis not ordered:: Treatment Not Indicated
--- NOTE | 2018-06-01 15:11 | OP.PCM_ITS ---
Problem List (1) Ulcer of left lower extremity with fat layer exposed Status: Chronic (2) Calciphylaxis Status: Chronic (3) Ulcer of right lower extremity with fat layer exposed Status: Chronic (4) Pain in right leg Status: Chronic (5) Pain in left leg Status: Chronic Report of Operation Date of Procedure: 06/01/18 - resident: [place] Surgeon: Nora Dee DPM Pre-Operative Diagnosis: right leg ulcer with fat layer exposed. let leg ulcer with fat layer exposed. calciphylaxis Post-Operative Diagnosis: right leg ulcer with fat layer exposed. let leg ulcer with fat layer exposed. calciphylaxis Surgery/Procedure Performed:: subcutaneous excisional debridement of right leg ulcers. subcutaneous excisional debridement of left leg ulcers. 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 She is being treated by mma fighter, Dr. Almonte for long- term management of this condition with IV sodium thiosulfate and elimination of calcium products from her diet. She underwent a standard wound care plan including serial debridements, offloading, diet improvement, and advanced wound care product application including theraskin and Apligraf in the outpatient setting. She has ongoing delayed healing and does not have any local signs of infection at this time. Her pulses remain palpable. She was cleared by her medical doctor and I reviewed her history and physical exam. Her preoperative diagnostic data was also reviewed and she is stable at this time. The preoperative indications, planned procedure, possible benefits, risks, complications, and anticipated healing time management were discussed in detail with patient. She understands complications include but are not limited to the following: Infection, continued delayed or nonhealing, scarring, pain, swelling , need for additional surgery, loss of limb, function, or light, allergic reaction, blood clot. No guarantees were made. Informed surgical consent and surgical limbs were signed. I answered all her questions. The patient was transported to the operating room via cart and placed on the operating room table in supine position. Final verification the patient, surgery, limb designation Procedure in detail: The patient was transported to the operating room via cart and placed on the operating table in the supine position. Final verification was then performed via the timeout procedure including patient, planned procedure, and limb designation. IV antibiotics were administered preoperatively by the anesthesia team. MAC anesthesia was initiated by the anesthesia team. Local anesthesia was administered by the podiatry team as noted above. Lateral lower extremities were prepped and draped in the usual aseptic manner and surgery began as the following: Versa jet and setting 5 was used to perform a subcutaneous excisional debridement to all ulcer sites to remove nonviable fibrous tissue, devitalized subcutaneous tissue, biofilm, slough. Pressure was applied to maintain hemostasis and she appeared to have tolerated this well. There was no necrosis infection or uncontrolled bleeding noted. The ulcer ulcer bed is granular with some interspersed fibrous tissue. The wound beds with stellate shaped on the right limb. The ulcer debridement measurements were as the following on the right lower limb: Pre-debridement medial extends into the posterior cluster 12.5 cm x 13 cm x 0.1 cm (post debridement 12.6 cm x 13.1 cm x 0.1 cm), lateral 14.8 cm x 5.9 cm x 0.1 cm (post debridement 14.9 cm x 6.0 cm x 0.1 cm), superior medial 4.9 cm x 2.5 cm x 0.1 cm (post debridement 5.0 cm x 2.6 cm x 0.1 cm). The ulcer measurements were as the following on the left lower limb: Posterior lateral aspect 5.7 cm x 3.5 cm x 0.1 cm (post debridement 5.8 cm x 3.6 cm x 0.1 cm), proximal medial leg 1.0 cm x 0.7 cm x 0.7 cm (post debridement 1.1 cm x 0.8 cm x 0.7 cm). The recently debrided ulcer sites were next copiously irrigated with normal saline. Next advanced wound healing product, amniofil, was applied copiously to cover all debridement sites; 1000 mg was utilized. This was secured in place with Adaptic and Steri-Strips and further moistened with a saline gauze. A secondary dressing was additionally applied to this well adhered product site including gauze, abdominal pads, Kerlix, and Tray wraps. After procedure: The patient tolerated the procedure and anesthesia well. She was transferred to the PACU with vital signs stable and intact to bilateral lower extremities. Her capillary refill time remains brisk to all digits of bilateral foot and there was no pulsatile bleeding noted prior to dressing application. She was advised to ice and elevate for pain and inflammation management. She was advised to keep her dressings clean, dry, and intact until she comes to the wound healing center next Monday. Postoperative orders were entered electronically. She understands this is likely a staged procedure and is part of a comprehensive wound healing plan. He is advised to continue to keep pressure directly off the sites and to continue with her calciphylaxis medical management with her mma fighter. Nora Dee DPM, [facility]
[2018-06-01 15:30] VITALS: BP 129/58
== END 2018-06-01 15:36 | disposition home or self-care (01) ==
LOC: SDC 11:03 → AC 11:04
PROVIDERS: Family Provider Internal Medicine; PCP Internal Medicine; Visit Provider Podiatrist
PROC: (CPT 11043; principal; 2018-06-01 12:45)
DX: L97.922 Non-pressure chronic ulcer of unspecified part of left lower leg with fat layer exposed (principal); L97.912 Non-pressure chronic ulcer of unspecified part of right lower leg with fat layer exposed; E83.59 Other disorders of calcium metabolism; I13.0 Hypertensive heart and chronic kidney disease with heart failure and stage 1 through stage 4 chronic kidney disease, or unspecified chronic kidney disease; E11.22 Type 2 diabetes mellitus with diabetic chronic kidney disease; I50.32 Chronic diastolic (congestive) heart failure; N18.3 Chronic kidney disease, stage 3 (moderate); J44.9 Chronic obstructive pulmonary disease, unspecified; F41.9 Anxiety disorder, unspecified; F32.9 Major depressive disorder, single episode, unspecified; G47.30 Sleep apnea, unspecified; Z99.2 Dependence on renal dialysis; F17.200 Nicotine dependence, unspecified, uncomplicated; Z79.899 Other long term (current) drug therapy
CPT/HCPCS: 11043; 11046 ×2; J7120; A4216

== ENCOUNTER → 2018-06-04 09:57 | Outpatient (CLI) | payer MEDICARE, SELFPAY ==
[2018-06-04 10:34] VITALS: BP 110/71; PULSE 81; RESP 16; TEMP 36.6; O2SAT 97; BMI 27.6
== END ==
PROVIDERS: Family Provider Internal Medicine; PCP Internal Medicine; Visit Provider Internal Medicine Nephrology
DX: Z45.2 Encounter for adjustment and management of vascular access device (principal); E83.59 Other disorders of calcium metabolism
CPT/HCPCS: 96365; J7050; A4216; J3490

== ENCOUNTER → 2018-06-07 09:59 | Outpatient (CLI) | payer MEDICARE, SELFPAY ==
[2018-06-07 10:19] VITALS: BP 134/74; PULSE 81; RESP 16; TEMP 36.3; O2SAT 96; BMI 28.3
== END ==
PROVIDERS: Family Provider Internal Medicine; PCP Internal Medicine; Visit Provider Internal Medicine Nephrology
DX: E83.59 Other disorders of calcium metabolism (principal)
CPT/HCPCS: 96365; J7050; A4216; J3490

== ENCOUNTER → 2018-06-11 11:06 | Outpatient (CLI) | payer MEDICARE, SELFPAY ==
[2018-06-11 11:19] VITALS: BP 122/81; PULSE 81; RESP 18; TEMP 36.5; O2SAT 93; BMI 28.3
== END ==
PROVIDERS: Family Provider Internal Medicine; PCP Internal Medicine; Visit Provider Internal Medicine Nephrology
DX: E83.59 Other disorders of calcium metabolism (principal)
CPT/HCPCS: 96365; J7050; A4216; J3490

== ENCOUNTER → 2018-06-14 09:32 | Outpatient (CLI) | payer MEDICARE, SELFPAY ==
[2018-06-14 09:49] VITALS: BP 124/68; PULSE 83; RESP 16; TEMP 36.4; O2SAT 98; BMI 28.7
== END ==
PROVIDERS: Family Provider Internal Medicine; PCP Internal Medicine; Visit Provider Internal Medicine Nephrology
DX: E83.59 Other disorders of calcium metabolism (principal)
CPT/HCPCS: 96365; J7050; A4216; J3490

== ENCOUNTER → 2018-06-18 09:17 | Outpatient (CLI) | payer MEDICARE, SELFPAY ==
[2018-06-18 09:38] VITALS: BP 116/73; PULSE 71; RESP 16; TEMP 36.4; O2SAT 95; BMI 28.7
== END ==
PROVIDERS: Family Provider Internal Medicine; PCP Internal Medicine; Visit Provider Internal Medicine Nephrology
DX: E83.59 Other disorders of calcium metabolism (principal)
CPT/HCPCS: 96365; J7050; A4216; J3490

== ENCOUNTER 2018-06-20 10:45 | Outpatient (RCR) | payer MEDICARE, SELFPAY ==
[2018-05-26 00:48] VITALS: BP 126/77; PULSE 97; RESP 18; TEMP 37; BMI 35.4
[2018-06-06 13:24] VITALS: BP 135/69; PULSE 91; RESP 18; TEMP 36.6; BMI 35.4
--- NOTE | 2018-06-06 14:18 | PCM.WC.PN ---
(1) Ulcer of right lower extremity with fat layer exposed Status: Chronic Current Visit: Yes Code(s): L97.912 - Non-pressure chronic ulcer of unspecified part of right lower leg with fat layer exposed (2) Ulcer of left lower extremity with fat layer exposed Status: Chronic Current Visit: Yes Code(s): L97.922 - Non-pressure chronic ulcer of unspecified part of left lower leg with fat layer exposed (3) Right leg pain Status: Chronic Current Visit: Yes Code(s): M79.604 - Pain in right leg (4) Calciphylaxis Status: Chronic Current Visit: Yes Code(s): E83.59 - Other disorders of calcium metabolism (5) Pain in right leg Status: Chronic Current Visit: Yes Code(s): M79.604 - Pain in right leg Type of Wound Date of Service: 06/06/18 Chief Complaint: Wounds/ulcers of b/l lower legs History of Wound: Di is a 72 year old female that returns for follow up of bilateral leg ulcers. She has been changing the dressings every other day and denies odor or redness to either limb. She had several theraskin and Apligraf applications applied in the clinical setting. She recently had a versa jet debridement with amnio fill, advanced wound care product, application in the operating room this past Monday. She denies pain, fever, chill, nausea, vomiting. She is A dressing clean and intact as advised. She denies recent illness. She is with her today. Progress of Wound: Stable - Physical Exam Vital Signs Temp Pulse Resp BP 97.8 F 91 18 135/69 H 06/06/18 13:24 06/06/18 13:24 06/06/18 13:24 06/06/18 13:24 General: Alert, Oriented x3, Cooperative Extremities: No cyanosis, Capillary Refill Less than 3 Seconds, No Calf Tenderness, Diminished Peripheral Pulses, Edema Skin: Ulcer/ Wound - No purulence, no erythema, streaking, no odor, no infection bilateral. The skin is atrophic and hairless bilateral Musculoskeletal: No Tenderness to Palpation of Joints or Extremities, Muscle Wasting Neurological: Sensory exam intact to light touch and pain Psych/Mental Status: Normal Affect, Appropriate Debridement Note No debridement was completed today - The advanced wound care product is still incorporating in and debridement will be reconsidered next week. Assessment/Plan Active Problems (Last Reviewed 04/14/18 @ 12:16 by Huang Alvarado MD) Right leg pain (Chronic) Ulcer of left lower extremity with fat layer exposed (Chronic) Calciphylaxis (Chronic) Ulcer of right lower extremity with fat layer exposed (Chronic) Pain in right leg (Chronic) Assessment: Right and left leg ulcers with fat layer exposed, chronic and noninfected. Delayed healing. venous insufficiency. Malnutrition suspected. Lower extremity pain. Multiple comorbidities noted. Calciphylaxis Plan: She was evaluated today and her care plan was discussed. Her recently versa jet debridement sites with advanced wound care product, amniofil, that was applied in the operating room was evaluated today. This appears to be intact without signs of infection or tissue necrosis. She was advised to keep this clean dry and intact. The peripheral skin was cleansed with antimicrobial wash and secondary dressing was applied. She will leave this in place until she returns next week. She demonstrates understanding. To continue with light compression. She has a follow up with Dr. Pelaez for evaluation of her arterial Doppler exam which appeared to have distal perfusion. A biopsy of the legs skin was previously obtained and the results were reviewed today and will be placed in her chart. I reiterated the importance of taking pressure off of these wound sites. She was told by her doctor to stop taking glucerna as it had too much calcium. To only take nutritional supplementation but do not have additional calcium in them. To complete course of sodium thiosulfate for treatment of calciphylaxis as prescribed once a week for 1 month. I answered all of her questions. To return to the wound healing center in 1 week or call sooner if she has any questions or concerns.
[2018-06-13 13:57] VITALS: BP 131/95; PULSE 89; RESP 16; TEMP 36.6; BMI 35.4
--- NOTE | 2018-06-13 14:02 | WC ---
ALL OMNIFILL LEFT INTACT. DID NOT REMOVE. NO MEASUREMENTS OBTAINED.
--- NOTE | 2018-06-13 15:19 | PCM.WC.PN ---
(1) Ulcer of right lower extremity with fat layer exposed Status: Chronic Code(s): L97.912 - Non-pressure chronic ulcer of unspecified part of right lower leg with fat layer exposed (2) Ulcer of left lower extremity with fat layer exposed Status: Chronic Code(s): L97.922 - Non-pressure chronic ulcer of unspecified part of left lower leg with fat layer exposed (3) Right leg pain Status: Chronic Code(s): M79.604 - Pain in right leg (4) Calciphylaxis Status: Chronic Code(s): E83.59 - Other disorders of calcium metabolism (5) Pain in right leg Status: Chronic Code(s): M79.604 - Pain in right leg Type of Wound Date of Service: 06/16/18 Chief Complaint: ulcers of b/l lower legs History of Wound: Di is a 72 year old female that returns for follow up of bilateral leg ulcers. She had several theraskin and Apligraf applications applied in the clinical setting. She recently had a versa jet debridement with amnio fill, advanced wound care product, application in the operating room this past Monday. She denies pain, fever, chill, nausea, vomiting. She has left her dressing clean and intact as advised. She denies recent illness. She is with her today. Progress of Wound: Improving - Physical Exam Vital Signs Temp Pulse Resp BP 97.8 F 89 16 131/95 H 06/13/18 13:57 06/13/18 13:57 06/13/18 13:57 06/13/18 13:57 General: Alert, Oriented x3, Cooperative Extremities: No cyanosis, Capillary Refill Less than 3 Seconds, No Calf Tenderness - Negative Kimberly and Layton sign bilateral, Diminished Peripheral Pulses, Edema - Bilateral lower extremity overall decreased compared to initial onset, Tenderness - Minimal wound manipulation today bilateral Skin: Ulcer/ Wound - No purulence, erythema, streaking, odor, or infection. The peripheral skin is atrophic. There is no longer any eschar or jumana necrosis noted. Wound Measurements and Assessment WC - Nurse 1 - General Ulcer Measurement Start: 06/06/18 13:24 Freq: Status: Active Protocol: Activity Type Activity Date Activity User E-Sign Co-Sign Detail Recorded Client Recorded Date Recorded By Document 06/13/18 13:[address] [facility] [id number] 06/13/18 14:[address] [facility] 06/13/18 13:57 Wound Center Nurse 1 [Ulcer Assessment] #7 right anterior -Combined with other wound No #6 LEFT MEDIAL SUPERIOR LEG -Combined with other wound No #5 RIGHT POSTERIOR CALF -Combined with other wound No #4 Left calf -Combined with other wound No #3 RIGHT MEDIAL LE CLUSTER -Combined with other wound No [Edema Assessment] -Lower Limb Edema Present Yes -Right Calf (cm) 33 -Right Ankle (cm) 22.5 -Left Calf (cm) 31.3 -Left Ankle (cm) 20.5 WC - Nurse 2 - General Ulcer CM Notes Start: 06/06/18 13:24 Freq: Status: Active Protocol: Activity Type Activity Date Activity User E-Sign Co-Sign Detail Recorded Client Recorded Date Recorded By Document 06/13/18 14:28 [id number] 06/13/18 14:58 06/13/18 14:28 Wound Center Nurse 2 [Procedure/Treatment] #7 right anterior -Time 14:56 -Correct Patient Yes -Correct Side, Site, Position Yes -Correct Procedure Yes -Procedure Performed Yes -Type of Procedure Debridement -Clinical Debridement Subcutaneous -Post Debridement Size (cm) - Length 11.9 -Post Debridement Size (cm) - Width 5.2 -Post Debridement Size (cm) - Depth 0.1 -Total Square Cm 61.88 -Wound/Ulcer Outcome Not Healed -Ulcer Cleansing Rinsed/ Irrigated with Saline -Foul Odor after Cleansing No #6 LEFT MEDIAL SUPERIOR LEG -Time 14:57 -Correct Patient Yes -Correct Side, Site, Position Yes -Correct Procedure Yes -Procedure Performed Yes -Type of Procedure Debridement -Clinical Debridement Subcutaneous -Post Debridement Size (cm) - Length 0.5 -Post Debridement Size (cm) - Width 0.5 -Post Debridement Size (cm) - Depth 0.4 -Total Square Cm 0.25 -Wound/Ulcer Outcome Not Healed -Ulcer Cleansing Rinsed/ Irrigated with Saline -Foul Odor after Cleansing No -Bioengineered Tissue No -Bleeding Controlled with Pressure -Treatment Response Procedure Tolerated Well #5 RIGHT POSTERIOR CALF -Time 14:54 -Correct Patient Yes -Correct Side, Site, Position Yes -Correct Procedure Yes -Procedure Performed Yes -Type of Procedure Debridement -Clinical Debridement Subcutaneous -Post Debridement Size (cm) - Length 13.0 -Post Debridement Size (cm) - Width 7.3 -Post Debridement Size (cm) - Depth 0.1 -Total Square Cm 94.90 -Wound/Ulcer Outcome Not Healed -Ulcer Cleansing Rinsed/ Irrigated with Saline -Foul Odor after Cleansing No -Bioengineered Tissue No -Bleeding Controlled with Pressure -Treatment Response Procedure Tolerated Well #4 Left calf -Time 14:54 -Correct Patient Yes -Correct Side, Site, Position Yes -Correct Procedure Yes -Procedure Performed Yes -Type of Procedure Debridement -Clinical Debridement Subcutaneous -Post Debridement Size (cm) - Length 2.7 -Post Debridement Size (cm) - Width 2.8 -Post Debridement Size (cm) - Depth 0.1 -Total Square Cm 7.56 -Wound/Ulcer Outcome Not Healed -Ulcer Cleansing Rinsed/ Irrigated with Saline -Foul Odor after Cleansing No -Bioengineered Tissue No -Bleeding Controlled with Pressure -Treatment Response Procedure Tolerated Well #3 RIGHT MEDIAL LE CLUSTER -Time 14:54 -Correct Patient Yes -Correct Side, Site, Position Yes -Correct Procedure Yes -Procedure Performed Yes -Type of Procedure Debridement -Clinical Debridement Subcutaneous -Post Debridement Size (cm) - Length 9.0 -Post Debridement Size (cm) - Width 6.9 -Post Debridement Size (cm) - Depth 0.1 -Total Square Cm 62.10 -Wound/Ulcer Outcome Not Healed -Ulcer Cleansing Rinsed/ Irrigated with Saline -Foul Odor after Cleansing No -Bioengineered Tissue No -Bleeding Controlled with Pressure -Other 60% debrided. -Treatment Response Procedure Tolerated Well [See Physician Procedure note for Specifics] Pain Scale: 0-10 Numeric [Pain] -Is Patient Pain Free? Yes Musculoskeletal: No Tenderness to Palpation of Joints or Extremities, Muscle Wasting Neurological: Sensory exam intact to light touch and pain Psych/Mental Status: Normal Affect, Appropriate Debridement Note Post-Debridement Measurements/Treatment WC - Nurse 2 - General Ulcer CM Notes Start: 06/06/18 13:24 Freq: Status: Active Protocol: Activity Type Activity Date Activity User E-Sign Co-Sign Detail Recorded Client Recorded Date Recorded By Document 06/06/18 14:19 [id number] 06/06/18 14:20 Document 06/13/18 14:28 [id number] 06/13/18 14:58 06/06/18 06/13/18 14:19 14:28 Wound Center Nurse 2 #7 right anterior -Time 14:56 -Correct Patient No Yes -Correct Side, Site, Position No Yes -Correct Procedure No Yes -Procedure Performed No Yes -Type of Procedure Debridement -Clinical Debridement Subcutaneous -Post Debridement Size (cm) - Length 11.9 -Post Debridement Size (cm) - Width 5.2 -Post Debridement Size (cm) - Depth 0.1 -Total Square Cm 61.88 -Wound/Ulcer Outcome Not Healed -Ulcer Cleansing Rinsed/ Irrigated with Saline -Foul Odor after Cleansing No #6 LEFT MEDIAL SUPERIOR LEG -Time 14:57 -Correct Patient No Yes -Correct Side, Site, Position No Yes -Correct Procedure No Yes -Procedure Performed No Yes -Type of Procedure Debridement -Clinical Debridement Subcutaneous -Post Debridement Size (cm) - Length 0.5 -Post Debridement Size (cm) - Width 0.5 -Post Debridement Size (cm) - Depth 0.4 -Total Square Cm 0.25 -Wound/Ulcer Outcome Not Healed -Ulcer Cleansing Rinsed/ Irrigated with Saline -Foul Odor after Cleansing No -Bioengineered Tissue No -Bleeding Controlled with Pressure -Treatment Response Procedure Tolerated Well #5 RIGHT POSTERIOR CALF -Time 14:54 -Correct Patient No Yes -Correct Side, Site, Position No Yes -Correct Procedure No Yes -Procedure Performed No Yes -Type of Procedure Debridement -Clinical Debridement Subcutaneous -Post Debridement Size (cm) - Length 13.0 -Post Debridement Size (cm) - Width 7.3 -Post Debridement Size (cm) - Depth 0.1 -Total Square Cm 94.90 -Wound/Ulcer Outcome Not Healed -Ulcer Cleansing Rinsed/ Irrigated with Saline -Foul Odor after Cleansing No -Bioengineered Tissue No -Bleeding Controlled with Pressure -Treatment Response Procedure Tolerated Well #4 Left calf -Time 14:54 -Correct Patient No Yes -Correct Side, Site, Position No Yes -Correct Procedure No Yes -Procedure Performed No Yes -Type of Procedure Debridement -Clinical Debridement Subcutaneous -Post Debridement Size (cm) - Length 2.7 -Post Debridement Size (cm) - Width 2.8 -Post Debridement Size (cm) - Depth 0.1 -Total Square Cm 7.56 -Wound/Ulcer Outcome Not Healed -Ulcer Cleansing Rinsed/ Irrigated with Saline -Foul Odor after Cleansing No -Bioengineered Tissue No -Bleeding Controlled with Pressure -Treatment Response Procedure Tolerated Well #3 RIGHT MEDIAL LE CLUSTER -Time 14:54 -Correct Patient No Yes -Correct Side, Site, Position No Yes -Correct Procedure No Yes -Procedure Performed No Yes -Type of Procedure Debridement -Clinical Debridement Subcutaneous -Post Debridement Size (cm) - Length 9.0 -Post Debridement Size (cm) - Width 6.9 -Post Debridement Size (cm) - Depth 0.1 -Total Square Cm 62.10 -Wound/Ulcer Outcome Not Healed -Ulcer Cleansing Rinsed/ Irrigated with Saline -Foul Odor after Cleansing No -Bioengineered Tissue No -Bleeding Controlled with Pressure -Other 60% debrided. -Treatment Response Procedure Tolerated Well Pain Scale: 0-10 Numeric Is Patient Pain Free? Yes Yes Wound debrided: leg anterior Laterality: Right Type of Debridement: Excisional debridement Anesthesia Used: 4% Lidocaine Solution Depth: in the subcutaneous layer Percentage of wound debrided: 100 Instrument Used: #15 blade Tissue Removed: fibrous, devitalized subcutaneous, biofilm, slough Severity: Fat Layer Exposed Amount of bleeding with debridement: Mild Bleeding Controlled with: Pressure Patient tolerated procedure well, - - Pre-debridement measurement 11.8 x 5.1 x 0.1 cm - Additional Wound Wound debrided: medial leg Laterality: Right Type of Debridement: Excisional debridement Anesthesia Used: 4% Lidocaine Solution Depth: in the subcutaneous layer Percentage of wound debrided: 100 Instrument Used: #15 blade Tissue Removed: fibrous, devitalized subcutaneous, biofilm, slough Severity: Fat Layer Exposed Amount of bleeding with debridement: Mild Bleeding Controlled with: Pressure Patient tolerated procedure: Patient tolerated procedure well, - - Pre-debridement measurement 8.9 x 6.8 x 0.1 cm - Additional Wound Wound debrided: posterior leg Laterality: Right Type of Debridement: Excisional debridement Anesthesia Used: 4% Lidocaine Solution Depth: in the subcutaneous layer Percentage of wound debrided: 100 Instrument Used: #15 blade Tissue Removed: fibrous, devitalized subcutaneous, biofilm, slough Severity: Fat Layer Exposed Amount of bleeding with debridement: Mild Bleeding Controlled with: Pressure Patient tolerated procedure: Patient tolerated procedure well, - - Pre-debridement measurement 12.9 x 7.2 x 0.1 cm - Additional Wound Wound debrided: calf Laterality: Left Type of Debridement: Excisional debridement Anesthesia Used: 4% Lidocaine Solution Depth: in the subcutaneous layer Percentage of wound debrided: 100 Instrument Used: #15 blade Tissue Removed: fibrous, devitalized subcutaneous, biofilm, slough Severity: Fat Layer Exposed Amount of bleeding with debridement: Mild Bleeding Controlled with: Pressure Patient tolerated procedure: Patient tolerated procedure well, - - Pre-debridement measurement 2.6 x 7.7 x 0.1 cm - Additional Wound Wound debrided: medial superior leg Laterality: Left Type of Debridement: Excisional debridement Anesthesia Used: 4% Lidocaine Solution Depth: in the subcutaneous layer Percentage of wound debrided: 100 Instrument Used: #15 blade Tissue Removed: fibrous, devitalized subcutaneous, biofilm, slough Severity: Fat Layer Exposed Amount of bleeding with debridement: Mild Bleeding Controlled with: Pressure Patient tolerated procedure: Patient tolerated procedure well, - - Pre-debridement measurement 0.4 x 0.4 x 0.3 cm Assessment/Plan Assessment: Right and left leg ulcers with fat layer exposed, chronic and noninfected. Delayed healing. venous insufficiency. Malnutrition suspected. Lower extremity pain. Multiple comorbidities noted. Calciphylaxis Plan: She was evaluated today and her care plan was discussed. Her recently versa jet debridement sites with advanced wound care product, amniofil, that was applied in the operating room was evaluated today. Debridement to all of the aforementioned ulcer sites were performed today as noted in the clinical nursing panel. This appears to be intact without signs of infection or tissue necrosis. The peripheral skin was cleansed with antimicrobial wash and a dressing of Lacey was applied; she is advised to changes every 1-2 days. Additional advanced wound care product, Apligraf, will be considered for application next week in the clinical setting. To continue with light compression. She has a follow up with Dr. Pelaez for evaluation of her arterial Doppler exam which appeared to have distal perfusion. A biopsy of the legs skin was previously obtained and the results were reviewed today and will be placed in her chart. I reiterated the importance of taking pressure off of these wound sites. She was told by her doctor to stop taking glucerna as it had too much calcium. To only take nutritional supplementation but do not have additional calcium in them. To complete course of sodium thiosulfate for treatment of calciphylaxis as prescribed once a week for 1 month. I answered all of her questions. To return to the wound healing center in 1 week or call sooner if she has any questions or concerns.
[2018-06-20 10:29] VITALS: BP 131/75; PULSE 92; RESP 16; TEMP 36.3; BMI 35.4
--- NOTE | 2018-06-20 14:17 | PN.PCM_ITS ---
(1) Ulcer of right lower extremity with fat layer exposed Status: Chronic Current Visit: Yes Code(s): L97.912 - Non-pressure chronic ulcer of unspecified part of right lower leg with fat layer exposed (2) Ulcer of left lower extremity with fat layer exposed Status: Chronic Current Visit: Yes Code(s): L97.922 - Non-pressure chronic ulcer of unspecified part of left lower leg with fat layer exposed (3) Right leg pain Status: Chronic Current Visit: Yes Code(s): M79.604 - Pain in right leg (4) Calciphylaxis Status: Chronic Current Visit: Yes Code(s): E83.59 - Other disorders of calcium metabolism (5) Pain in right leg Status: Chronic Current Visit: Yes Code(s): M79.604 - Pain in right leg Type of Wound Chief Complaint: ulcers of b/l lower legs History of Wound: Di is a 72 year old female that returns for follow up of bilateral leg ulcers. She had several theraskin and Apligraf applications applied in the clinical setting. She recently had a versa jet debridement with amnio fill, advanced wound care product, application in the operating room this past Monday. She denies pain, fever, chill, nausea, vomiting. She has changed her dressings daily with Lacey as advised. She denies recent illness. She is with her today. Progress of Wound: Improving - Physical Exam Vital Signs Temp Pulse Resp BP 97.3 F L 92 16 131/75 H 06/20/18 10:29 06/20/18 10:29 06/20/18 10:29 06/20/18 10:29 General: Alert, Oriented x3, Cooperative Extremities: No cyanosis, Capillary Refill Less than 3 Seconds, No Calf Tenderness - Negative Kimberly and Layton sign bilateral, Diminished Peripheral Pulses, Edema - Mild bilateral lower extremities Skin: Ulcer/ Wound - No purulence, no erythema, streaking, no odor, no infection bilateral. There is significant peripheral epithelialization noted to all wound margins and decreased depth. The adjacent skin is atrophic and hairless. There is no eschar deep tissue exposure noted. Wound Measurements and Assessment WC - Nurse 1 - General Ulcer Measurement Start: 06/06/18 13:24 Freq: Status: Active Protocol: Activity Type Activity Date Activity User E-Sign Co-Sign Detail Recorded Client Recorded Date Recorded By Document 06/20/18 10:29 DV [id number] 06/20/18 10:43 DV 06/20/18 10:29 Wound Center Nurse 1 [Ulcer Assessment] #7 right anterior -Combined with other wound No -Current Size (cm) - Length 12.0 -Current Size (cm) - Width 5.4 -Current Size (cm) - Depth 0.1 -Total Square Cm 64.80 -Date of Last Picture (Recall this 06/20/18 field) -Photo Taken Yes -Epithelialization Large 67-100% -Tunneling No -Undermining/Tunneling No -Circular Undermining No -Exudate Type Serosanguineous -Wound Margin Distinct, Outline Attached -Granulation Amt Large (67-100%) -Granulation Quality Red -Slough/Fibrin Yes -Necrosis Amt Medium (34-66%) -Necrotic Tissue Type Adherent Slough -Structure Exposed None/Limited to Skin Breakdown -Texture (Gabriella-wound Skin Appearance) Assessed Scarring -Moisture (Gabriella-wound Skin Appearance Assessed ) Weeping -Color (Gabriella-wound Skin Appearance) No Abnormality Assessed -Temperature (Gabriella-wound Skin No Abnormality Appearance) (Pt Warm) -Tenderness on Palpation (Gabriella-wound Yes Skin Appearance) -Ulcer Cleansing Wound Cleanser -Foul Odor after Cleansing No -Anesthetic Used 4% Lidocaine Solution #6 LEFT MEDIAL SUPERIOR LEG -Combined with other wound No -Current Size (cm) - Length 0.5 -Current Size (cm) - Width 0.4 -Current Size (cm) - Depth 0.2 -Total Square Cm 0.20 -Date of Last Picture (Recall this 06/20/18 field) -Photo Taken Yes -Tunneling No -Undermining/Tunneling No -Circular Undermining No -Change in Wound Grade/Stage No Query Text:If change please identify the Stage/Grade in the comment (ie. S2 G3) -Exudate Amt Large (67-100%) -Exudate Type Serosanguineous -Wound Margin Distinct, Outline Attached -Granulation Amt Large (67-100%) -Granulation Quality Red -Slough/Fibrin Yes -Necrosis Amt Medium (34-66%) -Necrotic Tissue Type Adherent Slough -Structure Exposed None/Limited to Skin Breakdown -Texture (Gabriella-wound Skin Appearance) Localized Edema Scarring -Moisture (Gabriella-wound Skin Appearance Weeping ) -Color (Gabriella-wound Skin Appearance) No Abnormality Assessed -Temperature (Gabriella-wound Skin No Abnormality Appearance) (Pt Warm) -Tenderness on Palpation (Gabriella-wound Yes Skin Appearance) -Ulcer Cleansing Wound Cleanser -Foul Odor after Cleansing No -Anesthetic Used 4% Lidocaine Solution #5 RIGHT POSTERIOR CALF -Combined with other wound No -Current Size (cm) - Length 12.0 -Current Size (cm) - Width 6.0 -Current Size (cm) - Depth 0.1 -Total Square Cm 72.00 -Date of Last Picture (Recall this 06/20/18 field) -Photo Taken Yes -Epithelialization Large 67-100% -Tunneling No -Undermining/Tunneling No -Circular Undermining No -Classification - Thickness Full Thickness without Exposed Support Structure -Wound Margin Distinct, Outline Attached -Granulation Amt Large (67-100%) -Granulation Quality Red -Slough/Fibrin Yes -Necrosis Amt Small (1-33%) -Necrotic Tissue Type Adherent Slough -Structure Exposed None/Limited to Skin Breakdown -Texture (Gabriella-wound Skin Appearance) Assessed Localized Edema Scarring -Moisture (Gabriella-wound Skin Appearance Assessed ) Weeping -Color (Gabriella-wound Skin Appearance) No Abnormality Assessed -Ulcer Cleansing Wound Cleanser -Foul Odor after Cleansing No -Anesthetic Used 4% Lidocaine Solution #4 Left calf -Combined with other wound No -Current Size (cm) - Length 3.0 -Current Size (cm) - Width 2.4 -Current Size (cm) - Depth 0.1 -Total Square Cm 7.20 -Epithelialization Large 67-100% -Tunneling No -Undermining/Tunneling No -Circular Undermining No -Exudate Amt Medium (34-66%) -Exudate Type Serosanguineous -Wound Margin Distinct, Outline Attached -Granulation Amt Large (67-100%) -Granulation Quality Red -Slough/Fibrin Yes -Necrosis Amt Small (1-33%) -Necrotic Tissue Type Adherent Slough -Structure Exposed None/Limited to Skin Breakdown -Texture (Gabriella-wound Skin Appearance) Assessed Localized Edema Scarring -Moisture (Gabriella-wound Skin Appearance Assessed ) Weeping -Color (Gabriella-wound Skin Appearance) No Abnormality Assessed -Temperature (Gabriella-wound Skin No Abnormality Appearance) (Pt Warm) -Ulcer Cleansing Wound Cleanser -Foul Odor after Cleansing No -Anesthetic Used 4% Lidocaine Solution #3 RIGHT MEDIAL LE CLUSTER -Combined with other wound No -Current Size (cm) - Length 8.0 -Current Size (cm) - Width 9.0 -Current Size (cm) - Depth 0.1 -Total Square Cm 72.00 -Date of Last Picture (Recall this 06/20/18 field) -Photo Taken Yes -Epithelialization Medium 34-66% -Tunneling No -Undermining/Tunneling No -Exudate Amt Large (67-100%) -Exudate Type Serosanguineous -Wound Margin Distinct, Outline Attached -Granulation Amt Large (67-100%) -Granulation Quality Red -Slough/Fibrin Yes -Necrosis Amt Small (1-33%) -Necrotic Tissue Type Adherent Slough -Structure Exposed None/Limited to Skin Breakdown -Texture (Gabriella-wound Skin Appearance) Assessed Localized Edema Scarring -Moisture (Gabriella-wound Skin Appearance Assessed ) Weeping -Color (Gabriella-wound Skin Appearance) No Abnormality Assessed -Temperature (Gabriella-wound Skin No Abnormality Appearance) (Pt Warm) -Tenderness on Palpation (Gabriella-wound Yes Skin Appearance) -Ulcer Cleansing Wound Cleanser -Foul Odor after Cleansing No -Anesthetic Used 4% Lidocaine Solution [Edema Assessment] -Lower Limb Edema Present Yes -Right Calf (cm) 34.7 -Right Ankle (cm) 21.4 -Left Calf (cm) 31.6 -Left Ankle (cm) 19.7 Musculoskeletal: No Tenderness to Palpation of Joints or Extremities, Muscle Wasting, Tenderness - Pain with ulcer debridement is noted and controlled with topical anesthetic Neurological: Sensory exam intact to light touch and pain Psych/Mental Status: Normal Affect, Appropriate Debridement Note Post-Debridement Measurements/Treatment - Nurse 2 - General Ulcer CM Notes Start: 06/06/18 13:24 Freq: Status: Active Protocol: Activity Type Activity Date Activity User E-Sign Co-Sign Detail Recorded Client Recorded Date Recorded By Document 06/06/18 14:19 [id number] 06/06/18 14:20 Document 06/13/18 14:28 [id number] 06/13/18 14:58 06/06/18 06/13/18 14:19 14:28 Wound Center Nurse 2 #7 right anterior -Time 14:56 -Correct Patient No Yes -Correct Side, Site, Position No Yes -Correct Procedure No Yes -Procedure Performed No Yes -Type of Procedure Debridement -Clinical Debridement Subcutaneous -Post Debridement Size (cm) - Length 11.9 -Post Debridement Size (cm) - Width 5.2 -Post Debridement Size (cm) - Depth 0.1 -Total Square Cm 61.88 -Wound/Ulcer Outcome Not Healed -Ulcer Cleansing Rinsed/ Irrigated with Saline -Foul Odor after Cleansing No #6 LEFT MEDIAL SUPERIOR LEG -Time 14:57 -Correct Patient No Yes -Correct Side, Site, Position No Yes -Correct Procedure No Yes -Procedure Performed No Yes -Type of Procedure Debridement -Clinical Debridement Subcutaneous -Post Debridement Size (cm) - Length 0.5 -Post Debridement Size (cm) - Width 0.5 -Post Debridement Size (cm) - Depth 0.4 -Total Square Cm 0.25 -Wound/Ulcer Outcome Not Healed -Ulcer Cleansing Rinsed/ Irrigated with Saline -Foul Odor after Cleansing No -Bioengineered Tissue No -Bleeding Controlled with Pressure -Treatment Response Procedure Tolerated Well #5 RIGHT POSTERIOR CALF -Time 14:54 -Correct Patient No Yes -Correct Side, Site, Position No Yes -Correct Procedure No Yes -Procedure Performed No Yes -Type of Procedure Debridement -Clinical Debridement Subcutaneous -Post Debridement Size (cm) - Length 13.0 -Post Debridement Size (cm) - Width 7.3 -Post Debridement Size (cm) - Depth 0.1 -Total Square Cm 94.90 -Wound/Ulcer Outcome Not Healed -Ulcer Cleansing Rinsed/ Irrigated with Saline -Foul Odor after Cleansing No -Bioengineered Tissue No -Bleeding Controlled with Pressure -Treatment Response Procedure Tolerated Well #4 Left calf -Time 14:54 -Correct Patient No Yes -Correct Side, Site, Position No Yes -Correct Procedure No Yes -Procedure Performed No Yes -Type of Procedure Debridement -Clinical Debridement Subcutaneous -Post Debridement Size (cm) - Length 2.7 -Post Debridement Size (cm) - Width 2.8 -Post Debridement Size (cm) - Depth 0.1 -Total Square Cm 7.56 -Wound/Ulcer Outcome Not Healed -Ulcer Cleansing Rinsed/ Irrigated with Saline -Foul Odor after Cleansing No -Bioengineered Tissue No -Bleeding Controlled with Pressure -Treatment Response Procedure Tolerated Well #3 RIGHT MEDIAL LE CLUSTER -Time 14:54 -Correct Patient No Yes -Correct Side, Site, Position No Yes -Correct Procedure No Yes -Procedure Performed No Yes -Type of Procedure Debridement -Clinical Debridement Subcutaneous -Post Debridement Size (cm) - Length 9.0 -Post Debridement Size (cm) - Width 6.9 -Post Debridement Size (cm) - Depth 0.1 -Total Square Cm 62.10 -Wound/Ulcer Outcome Not Healed -Ulcer Cleansing Rinsed/ Irrigated with Saline -Foul Odor after Cleansing No -Bioengineered Tissue No -Bleeding Controlled with Pressure -Other 60% debrided. -Treatment Response Procedure Tolerated Well Pain Scale: 0-10 Numeric Is Patient Pain Free? Yes Yes Wound debrided: posterior leg Laterality: Right Type of Debridement: Excisional debridement Anesthesia Used: 4% Lidocaine Solution Depth: in the subcutaneous layer Percentage of wound debrided: 70 Instrument Used: #15 blade Tissue Removed: fibrous, devitalized subcutaneous, biofilm, slough Severity: Fat Layer Exposed Amount of bleeding with debridement: Mild Bleeding Controlled with: Pressure Patient tolerated procedure well - Additional Wound Wound debrided: anterior leg Laterality: Right Type of Debridement: Excisional debridement Anesthesia Used: 4% Lidocaine Solution Depth: in the subcutaneous layer Percentage of wound debrided: 70 Instrument Used: #15 blade Tissue Removed: fibrous, devitalized subcutaneous, biofilm, slough Severity: Fat Layer Exposed Amount of bleeding with debridement: Mild Bleeding Controlled with: Pressure Patient tolerated procedure: Patient tolerated procedure well - Additional Wound Wound debrided: medial leg Laterality: Right Type of Debridement: Excisional debridement Anesthesia Used: 4% Lidocaine Solution Depth: in the subcutaneous layer Percentage of wound debrided: 100 Instrument Used: #15 blade Tissue Removed: fibrous, devitalized subcutaneous, biofilm, slough Severity: Fat Layer Exposed Amount of bleeding with debridement: Mild Bleeding Controlled with: Pressure Patient tolerated procedure: Patient tolerated procedure well - Additional Wound Wound debrided: proximal medial leg Laterality: Left Type of Debridement: Excisional debridement Anesthesia Used: 4% Lidocaine Solution Depth: in the subcutaneous layer Percentage of wound debrided: 100 Instrument Used: #15 blade Tissue Removed: fibrous, devitalized subcutaneous, biofilm, slough Severity: Fat Layer Exposed Amount of bleeding with debridement: Mild Bleeding Controlled with: Pressure Patient tolerated procedure: Patient tolerated procedure well - Additional Wound Wound debrided: lateral leg Laterality: Left Type of Debridement: Excisional debridement Anesthesia Used: 4% Lidocaine Solution Depth: in the subcutaneous layer Percentage of wound debrided: 100 Instrument Used: #15 blade Tissue Removed: fibrous, devitalized subcutaneous, biofilm, slough Severity: Fat Layer Exposed Amount of bleeding with debridement: Mild Bleeding Controlled with: Pressure Patient tolerated procedure: Patient tolerated procedure well Assessment/Plan Active Problems (Last Reviewed 04/14/18 @ 12:16 by Huang Alvarado MD) Right leg pain (Chronic) Ulcer of left lower extremity with fat layer exposed (Chronic) Calciphylaxis (Chronic) Ulcer of right lower extremity with fat layer exposed (Chronic) Pain in right leg (Chronic) Assessment: Right and left leg ulcers with fat layer exposed, chronic and noninfected. Delayed healing. venous insufficiency. Malnutrition suspected. Lower extremity pain. Multiple comorbidities noted. Calciphylaxis Plan: She was evaluated today and her care plan was discussed. Her recent versa jet debridement sites with advanced wound care product, amniofil, that was applied in the operating room was evaluated today. Debridement to all of the aforementioned ulcer sites were performed today as noted in the clinical nursing panel. This appears to be intact without signs of infection or tissue necrosis. The peripheral skin was cleansed with antimicrobial wash and a dressing of Lacey was applied; she is advised to changes every 1-2 days. Additional advanced wound care product, Apligraf, was applied today to the posterior right leg and a small portion of the right anterior ulcer site after verbal consent was obtained. She tolerated this well and this was secured in place with Steri- Strips and wound veil. I recommend return to the operating room for more aggressive versa jet debridement and application of advanced wound care product, amniofill due to large size of these ulcers. She is amenable to proceed with this plan and I will see if we can get her scheduled within 30 days of her last history and physical exam. She has a follow up with Dr. Pelaez for evaluation of her arterial Doppler exam which appeared to have distal perfusion. A biopsy of the legs skin was previously obtained and the results were reviewed today and will be placed in her chart. I reiterated the importance of taking pressure off of these wound sites. She was told by her doctor to stop taking glucerna as it had too much calcium. To only take nutritional supplementation but do not have additional calcium in them. To complete course of sodium thiosulfate for treatment of calciphylaxis as prescribed once a week for 1 month. I answered all of her questions. To return to the wound healing center in 1 week or call sooner if she has any questions or concerns.
== END 2018-06-24 23:59 ==
LOC: WC 10:45
PROVIDERS: Family Provider Internal Medicine; PCP Internal Medicine; Visit Provider Podiatrist
DX: I87.2 Venous insufficiency (chronic) (peripheral) (principal); L97.822 Non-pressure chronic ulcer of other part of left lower leg with fat layer exposed; L97.812 Non-pressure chronic ulcer of other part of right lower leg with fat layer exposed; L97.222 Non-pressure chronic ulcer of left calf with fat layer exposed; E83.59 Other disorders of calcium metabolism; M79.604 Pain in right leg
CPT/HCPCS: 11042; 11045; 15271; 15273; 99214; Q4101; G0463

== ENCOUNTER → 2018-06-21 09:09 | Outpatient (CLI) | payer MEDICARE, SELFPAY ==
[2018-06-21 09:30] VITALS: BP 121/79; PULSE 96; RESP 16; TEMP 36.6; O2SAT 97; BMI 28.3
== END ==
PROVIDERS: Family Provider Internal Medicine; PCP Internal Medicine; Visit Provider Internal Medicine Nephrology
DX: E83.59 Other disorders of calcium metabolism (principal)
CPT/HCPCS: 96365; J7050; A4216; J3490

== ENCOUNTER → 2018-06-25 09:03 | Outpatient (CLI) | payer MEDICARE, SELFPAY ==
[2018-06-25 09:39] VITALS: BP 132/75; PULSE 79; RESP 18; TEMP 36.4; O2SAT 98; BMI 28.1
== END ==
PROVIDERS: Family Provider Internal Medicine; PCP Internal Medicine; Referring Provider Internal Medicine Nephrology; Visit Provider Internal Medicine Nephrology
DX: E83.59 Other disorders of calcium metabolism (principal)
CPT/HCPCS: 96365; J7050; A4216; J3490

== ENCOUNTER → 2018-06-28 09:05 | Outpatient (CLI) | payer MEDICARE, SELFPAY ==
[2018-06-28 09:26] VITALS: BP 136/74; PULSE 72; RESP 16; TEMP 36.3; O2SAT 98; BMI 28.1
[2018-06-28 09:42] LABS: Absolute Lymphocyte Count 1.47 X10^3/ul (0.83-4.51); Absolute Neutrophil Count 4.9 X10^3/uL (2.0-7.7); Basophil# 0.01 X10^3/uL; Basophil% 0.1 % (0-1); Differential Indicated SCAN CRITERIA MET; Eosinophil# 0.06 X10^3/uL; Eosinophils% 0.8 % (0-5); Hematocrit 42.3 % (37-47); Hemoglobin 13.4 g/dl (12.0-15.0); Lymphocyte # 1.47 X10^3/ul (4.0); Lymphocyte % 20.8 % (19-41); Mean Corp Hgb Conc 31.7 g/gl (32-36); Mean Corpuscular Hgb 26.5 pg (27.0-32.0); Mean Corpuscular Volume 83.8 fL (81-99); Mean Platelet Vol. 9.4 fl (6.2-12.0); Monocyte# 0.64 X10^3/uL; Neutrophil % 69.3 % (47-70); POSITIVE COUNT NO; POSITIVE DIFFERENTIAL NO; POSITIVE MORPHOLOGY YES; Platelet Count 164 K/mm3 (150-450); RBC Distribution Width CV 20.9 % (11.6-14.6); RBC Distribution Width SD 64.3 fl (35.1-43.9); Red Blood Count 5.05 M/mm3 (4.2-5.4); White Blood Count 7.1 K/mm3 (4.4-11.0)
[2018-06-28 10:06] LABS: Anisocytosis 1+; Hypochromasia RARE; Platelet Estimate ADEQUATE (ADEQ)
== END ==
PROVIDERS: Nurse Practitioner; Family Provider Internal Medicine; PCP Internal Medicine; Referring Provider Internal Medicine Nephrology; Visit Provider Internal Medicine Nephrology
DX: Z01.818 Encounter for other preprocedural examination (principal); E83.59 Other disorders of calcium metabolism
CPT/HCPCS: 96365; 36592; 85025; J7050; A4216; J3490

== ENCOUNTER → 2018-07-02 09:38 | Outpatient (CLI) | payer MEDICARE, SELFPAY ==
[2018-07-02 09:46] VITALS: BP 137/78; PULSE 82; RESP 18; TEMP 36.6; O2SAT 95; BMI 29.0
== END ==
PROVIDERS: Family Provider Internal Medicine; PCP Internal Medicine; Referring Provider Internal Medicine Nephrology; Visit Provider Internal Medicine Nephrology
DX: E83.59 Other disorders of calcium metabolism (principal)
CPT/HCPCS: 96365; J7050; A4216; J3490

== ENCOUNTER 2018-07-03 11:38 | Day surgery (SDC) | payer MEDICARE, SELFPAY ==
[2018-07-03 12:12] VITALS: BP 131/77; PULSE 80; RESP 16; TEMP 36.7; O2SAT 95; BMI 29.7
[2018-07-03 12:26] LABS: Bedside Glucose 112 mg/dL (70-110)
[2018-07-03] MEDS: Bupivacaine Mpf 0.5% 30 ML VIAL (13:35)
--- NOTE | 2018-07-03 14:12 | OP.PN_ITS ---
Problem List (1) Calciphylaxis Status: Chronic (2) Ulcer of left lower extremity with fat layer exposed Status: Chronic (3) Ulcer of right lower extremity with fat layer exposed Status: Chronic Immediate Post-Op Note Date of Procedure: 07/03/18 Primary Surgeon/Physician: Nora Dee DPM doctor of osteopathy: none Pre-Operative Diagnosis: right leg ulcer chronic, fat layer exposed. left leg ulcer chronic, fat layer exposed. calciphylaxis Post-Operative Diagnosis: right leg ulcer chronic, fat layer exposed. left leg ulcer chronic, fat layer exposed. calciphylaxis Surgery/Procedure Performed:: versajet excisional subcutaneous debridement bilateral legs. application of advanced wound care product, amniofill bilateral legs Description of Surgical Findings:: hemostasis controlled materials: amniofill (500 mg) no infection see detailed operation report for details The patient tolerated the procedure and anesthesia well. She was transported to the PACU vital signs stable and vascular status intact to bilateral lower extremities. Postoperative orders were entered electronically. She will be discharged home later today upon continued stability. Estimated Blood Loss: < 50 mL Specimen's removed: none Type of Anesthesia:: Local MAC - Preop: 18 cc of one-to-one mix of 1% lidocaine plain and 0.5% Marcaine plain administered in subdermal local infiltration manner bilateral legs - Admit VTE Documentation VTE Present on Admission: No VTE Pharm Prophylaxis ordered?: No Reason prophylaxis not ordered:: Treatment Not Indicated
--- NOTE | 2018-07-03 14:14 | DCINST_ITS ---
Discharge Diet: No Restrictions Discharge Activity: May not drive while taking narcotic pain medications. Weight Bearing Status: Weight bearing as tolerated Keep extremity elevated above heart level: Operative Extremity, Left Leg, Right Leg Call your doctor if your incision/area has: Continuous Slow Oozing, Sudden Increased Bleeding, Increased Pain/ Swelling, Increased Redness, Foul Smelling Discharge, Swelling at the incision site Call your doctor if you observe: Fever of 101 or Higher, Calf discomfort, Uncontrolled pain Cleanse incision/area with: Keep Dressing Clean & Dry Allergies/Adverse Reactions: Allergies amlodipine besylate [From Norvasc] Allergy (Verified 06/29/18 08:57) Unknown ceftriaxone Allergy (Verified 06/29/18 08:57) Rash doxazosin [From Cardura] Allergy (Verified 06/29/18 08:57) Unknown doxazosin mesylate [From Cardura] Allergy (Verified 06/29/18 08:57) Other VEINS TURNED RED doxycycline Allergy (Verified 06/29/18 08:57) Unknown Pt doesn't remember enalapril maleate [From Vasotec] Allergy (Verified 06/29/18 08:57) Rash enalaprilat dihydrate [From Vasotec] Allergy (Verified 06/29/18 08:57) Rash hydroxyzine HCl [From Vistaril] Allergy (Verified 06/29/18 08:57) Rash hydroxyzine pamoate [From Vistaril] Allergy (Verified 06/29/18 08:57) Rash meperidine HCl [From Demerol] Allergy (Verified 06/29/18 08:57) Rash Sulfa (Sulfonamide Antibiotics) Allergy (Verified 06/29/18 08:57) Hives sulfamethoxazole [From Bactrim] Allergy (Verified 06/29/18 08:57) Hives trimethoprim [From Bactrim] Allergy (Verified 06/29/18 08:57) Hives Medications to take at Discharge Gabapentin [Neurontin] 100 mg PO TID 09/29/17 Fluoxetine [Prozac] 20 mg PO DAILY 09/30/17 Metoprolol Tartrate [Lopressor (beta alok)] 25 mg PO BID 12/12/17 Potassium Chloride [K-Tab ER] 10 meq PO QDAY 12/12/17 Iron Polysaccharide Complex [Ferrex 150] 150 mg PO DAILYCM 05/25/18 Prednisone 10 mg PO DAILY 05/25/18 Oxycodone HCl/Acetaminophen [Percocet 5-325] 1 tab PO Q8H PRN PRN 06/28/18 furosemide 20 mg tablet 20 mg PO DAILY #30 tab 07/02/18 Primary Care Physician: Aaron Tidwell MD [Primary Care Provider] - Test Results: Test results from this visit will be discussed in further detail at your follow- up appointment, if applicable. Please Follow Up With: Nora Dee DPM When: next wed at wound care center. call sooner if concerns - [phone] Proposed Discharge Date: 07/03/18
[2018-07-03 14:15] VITALS: BP 122/86; BP 131/77; PULSE 73; RESP 18; TEMP 36.4; O2SAT 97
[2018-07-03 14:20] VITALS: BP 128/77; BP 131/77; PULSE 77; RESP 18; O2SAT 99
[2018-07-03 14:25] VITALS: BP 124/68; BP 131/77; PULSE 75; RESP 18; O2SAT 96
[2018-07-03 14:30] VITALS: BP 129/65; BP 131/77; PULSE 71; RESP 18; TEMP 36.6; O2SAT 96
[2018-07-03 14:49] VITALS: BP 131/77
--- NOTE | 2018-07-03 16:28 | PCM.OPRPT ---
Problem List (1) Calciphylaxis Status: Chronic (2) Ulcer of left lower extremity with fat layer exposed Status: Chronic (3) Ulcer of right lower extremity with fat layer exposed Status: Chronic Report of Operation Date of Procedure: 07/03/18 Pre-Operative Diagnosis: right leg ulcer chronic, fat layer exposed. left leg ulcer chronic, fat layer exposed. calciphylaxis Post-Operative Diagnosis: right leg ulcer chronic, fat layer exposed. left leg ulcer chronic, fat layer exposed. calciphylaxis Surgery/Procedure Performed:: versajet excisional subcutaneous debridement bilateral legs. application of advanced wound care product, amniofill bilateral legs Description of Surgical Findings:: hemostasis controlled, no tourniquet utilized materials: amniofill (500 mg) Complications: None roof bolter helper: none Type of Anesthesia:: Local MAC - Preop: 18 cc of one-to-one mix of 1% lidocaine plain and 0.5% Marcaine plain administered in subdermal local infiltration manner bilateral legs Specimen's removed: none Estimated Blood Loss (mL): < 50 mL Description of Procedure: Indications: This 72-year-old female with significant past medical history of atrial fibrillation, calciphylaxis, chronic diastolic heart failure, obstructive sleep apnea, depression, hypertension, myalgias, history of anemia and history of kidney disease has chronic bilateral lower extremity ulcers secondary to calciphylaxis flareup. She is being treated by retaining room cutter, Dr. Almonte for long-term management of this condition with IV sodium thiosulfate and elimination of calcium products from her diet. She underwent a standard wound care plan including serial debridements, offloading, diet improvement, and advanced wound care product application including theraskin and Apligraf in the outpatient setting. She has ongoing delayed healing and does not have any local signs of infection at this time. Her pulses remain palpable. She was cleared by her medical doctor and I reviewed her history and physical exam. Her preoperative diagnostic data was also reviewed and she is stable at this time. The preoperative indications, planned procedure, possible benefits, risks, complications, and anticipated healing time management were discussed in detail with patient. She understands complications include but are not limited to the following: Infection, continued delayed or nonhealing, scarring, pain, swelling, need for additional surgery, loss of limb, function, or light, allergic reaction, blood clot. No guarantees were made. Informed surgical consent and surgical limbs were signed. I answered all her questions. This is a planned stage procedure. Procedure in detail: The patient was transported to the operating room via cart and placed on the operating table in the supine position. Final verification was then performed via the timeout procedure including patient, planned procedure, and limb designation. MAC anesthesia was initiated by the anesthesia team. Local anesthesia was administered by the podiatry team as noted above. Lateral lower extremities were prepped and draped in the usual aseptic manner and surgery began as the following: Versa jet and setting 5 was used to perform a subcutaneous excisional debridement to all ulcer sites to remove nonviable fibrous tissue, devitalized subcutaneous tissue, biofilm, slough. Pressure was applied to maintain hemostasis and she appeared to have tolerated this well. There was no necrosis infection or uncontrolled bleeding noted. The ulcer ulcer bed is granular with some interspersed fibrous tissue. The wound beds with stellate shaped on the right limb. The ulcer debridement measurements were as the following on the right lower limb: Pre-debridement posterior cluster 12.5 x 6.5 x 0.1 cm (post debridement 12.7 x 6.6 x 0.1 cm), lateral cluster 6.2 x 4.2 x 0.1 cm (post debridement 6.3 x 4.3 x 0.1 cm), medial 7.3 x 5.5 x 0.1 cm (post debridement 7.4 x 5.6 x 0.1 cm). The ulcer measurements were as the following on the left lower limb: Posterior aspect 2.9 x 2.8 x 0.1 cm (post debridement 3.0 x 2.9 x 0.1 cm). The recently debrided ulcer sites were next copiously irrigated with normal saline. Next advanced wound healing product, amniofill, was applied copiously to cover all debridement sites; 500 mg was utilized. This was secured in place with Adaptic and Steri-Strips and further moistened with a saline gauze. A secondary dressing was additionally applied to this well adhered product site including gauze, abdominal pads, Kerlix, and Tray wraps. After procedure: The patient tolerated the procedure and anesthesia well. She was transferred to the PACU with vital signs stable and intact to bilateral lower extremities. Her capillary refill time remains brisk to all digits of bilateral foot and there was no pulsatile bleeding noted prior to dressing application. She was advised to ice and elevate for pain and inflammation management. She was advised to keep her dressings clean, dry, and intact until she comes to the wound healing center next Monday. Postoperative orders were entered electronically. She understands this is likely a staged procedure and is part of a comprehensive wound healing plan. She was advised to continue to keep pressure directly off the sites and to continue with her calciphylaxis medical management with her retaining room cutter. Nora Dee DPM, [facility]
--- NOTE | 2018-07-03 16:34 | OP.PCM_ITS ---
Problem List (1) Calciphylaxis Status: Chronic (2) Ulcer of left lower extremity with fat layer exposed Status: Chronic (3) Ulcer of right lower extremity with fat layer exposed Status: Chronic Report of Operation Date of Procedure: 07/03/18 Pre-Operative Diagnosis: right leg ulcer chronic, fat layer exposed. left leg ulcer chronic, fat layer exposed. calciphylaxis Post-Operative Diagnosis: right leg ulcer chronic, fat layer exposed. left leg ulcer chronic, fat layer exposed. calciphylaxis Surgery/Procedure Performed:: versajet excisional subcutaneous debridement bilateral legs. application of advanced wound care product, amniofill bilateral legs Description of Surgical Findings:: hemostasis controlled, no tourniquet utilized materials: amniofill (500 mg) Complications: None supply cataloguer: none Type of Anesthesia:: Local MAC - Preop: 18 cc of one-to-one mix of 1% lidocaine plain and 0.5% Marcaine plain administered in subdermal local infiltration manner bilateral legs Specimen's removed: none Estimated Blood Loss (mL): < 50 mL Description of Procedure: Indications: This 72-year-old female with significant past medical history of atrial fibrillation, calciphylaxis, chronic diastolic heart failure, obstructive sleep apnea, depression, hypertension, myalgias, history of anemia and history of kidney disease has chronic bilateral lower extremity ulcers secondary to calciphylaxis flareup. She is being treated by journeyman pipe fitter, Dr. Almonte for long- term management of this condition with IV sodium thiosulfate and elimination of calcium products from her diet. She underwent a standard wound care plan including serial debridements, offloading, diet improvement, and advanced wound care product application including theraskin and Apligraf in the outpatient setting. She has ongoing delayed healing and does not have any local signs of infection at this time. Her pulses remain palpable. She was cleared by her medical doctor and I reviewed her history and physical exam. Her preoperative diagnostic data was also reviewed and she is stable at this time. The preoperative indications, planned procedure, possible benefits, risks, complications, and anticipated healing time management were discussed in detail with patient. She understands complications include but are not limited to the following: Infection, continued delayed or nonhealing, scarring, pain, swelling, need for additional surgery, loss of limb, function, or light, allergic reaction, blood clot. No guarantees were made. Informed surgical consent and surgical limbs were signed. I answered all her questions. This is a planned stage procedure. Procedure in detail: The patient was transported to the operating room via cart and placed on the operating table in the supine position. Final verification was then performed via the timeout procedure including patient, planned procedure, and limb designation. MAC anesthesia was initiated by the anesthesia team. Local anesthesia was administered by the podiatry team as noted above. Lateral lower extremities were prepped and draped in the usual aseptic manner and surgery began as the following: Versa jet and setting 5 was used to perform a subcutaneous excisional debridement to all ulcer sites to remove nonviable fibrous tissue, devitalized subcutaneous tissue, biofilm, slough. Pressure was applied to maintain hemostas is and she appeared to have tolerated this well. There was no necrosis infection or uncontrolled bleeding noted. The ulcer ulcer bed is granular with some interspersed fibrous tissue. The wound beds with stellate shaped on the right limb. The ulcer debridement measurements were as the following on the right lower limb: Pre-debridement posterior cluster 12.5 x 6.5 x 0.1 cm (post debridement 12.7 x 6.6 x 0.1 cm), lateral cluster 6.2 x 4.2 x 0.1 cm (post debridement 6.3 x 4.3 x 0.1 cm), medial 7.3 x 5.5 x 0.1 cm (post debridement 7.4 x 5.6 x 0.1 cm). The ulcer measurements were as the following on the left lower limb: Posterior aspect 2.9 x 2.8 x 0.1 cm (post debridement 3.0 x 2.9 x 0.1 cm). The recently debrided ulcer sites were next copiously irrigated with normal saline. Next advanced wound healing product, amniofill, was applied copiously to cover all debridement sites; 500 mg was utilized. This was secured in place with Adaptic and Steri-Strips and further moistened with a saline gauze. A secondary dressing was additionally applied to this well adhered product site including gauze, abdominal pads, Kerlix, and Tray wraps. After procedure: The patient tolerated the procedure and anesthesia well. She was transferred to the PACU with vital signs stable and intact to bilateral lower extremities. Her capillary refill time remains brisk to all digits of bilateral foot and there was no pulsatile bleeding noted prior to dressing application. She was advised to ice and elevate for pain and inflammation management. She was advised to keep her dressings clean, dry, and intact until she comes to the wound healing center next Monday. Postoperative orders were entered electronically. She understands this is likely a staged procedure and is part of a comprehensive wound healing plan. She was advised to continue to keep pressure directly off the sites and to continue with her calciphylaxis medical management with her journeyman pipe fitter. Nora Dee DPM, [facility]
== END 2018-07-03 14:51 | disposition home or self-care (01) ==
LOC: SDC 11:38 → AC 11:39
PROVIDERS: Family Provider Internal Medicine; PCP Internal Medicine; Referring Provider Podiatrist; Visit Provider Podiatrist
PROC: (CPT 11042; principal; 2018-07-03 13:15)
DX: I83.019 Varicose veins of right lower extremity with ulcer of unspecified site (principal); L97.922 Non-pressure chronic ulcer of unspecified part of left lower leg with fat layer exposed; L97.912 Non-pressure chronic ulcer of unspecified part of right lower leg with fat layer exposed; E83.59 Other disorders of calcium metabolism; I10 Essential (primary) hypertension; I48.2 Chronic atrial fibrillation; N18.3 Chronic kidney disease, stage 3 (moderate); E11.22 Type 2 diabetes mellitus with diabetic chronic kidney disease; I83.029 Varicose veins of left lower extremity with ulcer of unspecified site; I50.22 Chronic systolic (congestive) heart failure
CPT/HCPCS: 11042; 82962; J7120; A4216

== ENCOUNTER → 2018-07-09 09:37 | Outpatient (CLI) | payer MEDICARE, SELFPAY ==
[2018-07-09 10:52] LABS: Albumin, Serum 3.4 g/dL (3.2-5.0); BUN 40 mg/dL (7-18); BUN/Creat Ratio 36.4 RATIO (10-20); Chloride 101 mmol/L (98-107); EST Glomerular Filtration Rate 52 mL/min (>60); Est Glom Filt Rate - Afr Amer 63 mL/min (>60); Glucose 137 mg/dL (74-106); Potassium 4.1 mmol/L (3.5-5.1); Sodium Level 138 mmol/L (136-145)
[2018-07-12 13:57] LABS: Vitamin D 1,25-Dihydroxy 21.9 pg/mL (19.9-79.3)
== END ==
PROVIDERS: Family Provider Internal Medicine; PCP Internal Medicine; Referring Provider Internal Medicine Nephrology; Visit Provider Internal Medicine Nephrology
DX: N18.3 Chronic kidney disease, stage 3 (moderate) (principal)
CPT/HCPCS: 36592; 80069; 82652; A4216

== ENCOUNTER → 2018-07-11 09:28 | Outpatient (CLI) | payer MEDICARE, SELFPAY ==
[2018-07-11 10:23] LABS: PTHIN 58.8 pg/mL (18.4-80.1)
== END ==
PROVIDERS: Family Provider Internal Medicine; PCP Internal Medicine; Referring Provider Internal Medicine Nephrology; Visit Provider Internal Medicine Nephrology
DX: N17.9 Acute kidney failure, unspecified (principal)
CPT/HCPCS: 36592; 83970; A4216

== ENCOUNTER → 2018-07-16 09:37 | Outpatient (CLI) | payer MEDICARE, SELFPAY | PROVIDERS: Family Provider Internal Medicine; PCP Internal Medicine; Referring Provider Internal Medicine Nephrology; Visit Provider Internal Medicine Nephrology | DX: Z45.2 Encounter for adjustment and management of vascular access device (principal) | CPT/HCPCS: A4216 ==

== ENCOUNTER → 2018-07-24 11:16 | Outpatient (CLI) | payer MEDICARE, SELFPAY | PROVIDERS: Family Provider Internal Medicine; PCP Internal Medicine; Referring Provider Internal Medicine Nephrology; Visit Provider Internal Medicine Nephrology | DX: Z45.2 Encounter for adjustment and management of vascular access device (principal) | CPT/HCPCS: A4216 ==

== ENCOUNTER 2018-07-25 10:00 | Outpatient (RCR) | payer MEDICARE, SELFPAY ==
[2018-06-25 00:41] VITALS: BP 131/75; PULSE 92; RESP 16; TEMP 36.3; BMI 35.4
[2018-06-27 13:22] VITALS: BP 127/72; PULSE 84; RESP 18; TEMP 36.4; BMI 35.4
--- NOTE | 2018-06-27 17:18 | PCM.WC.PN ---
(1) Ulcer of right lower extremity with fat layer exposed Status: Chronic Current Visit: Yes Code(s): L97.912 - Non-pressure chronic ulcer of unspecified part of right lower leg with fat layer exposed (2) Ulcer of left lower extremity with fat layer exposed Status: Chronic Current Visit: Yes Code(s): L97.922 - Non-pressure chronic ulcer of unspecified part of left lower leg with fat layer exposed (3) Calciphylaxis Status: Chronic Current Visit: Yes Code(s): E83.59 - Other disorders of calcium metabolism (4) Pain in right leg Status: Chronic Current Visit: Yes Code(s): M79.604 - Pain in right leg (5) Pain in left leg Status: Chronic Current Visit: Yes Code(s): M79.605 - Pain in left leg Type of Wound Date of Service: 06/27/18 Chief Complaint: Wounds/ulcers of b/l lower legs History of Wound: Di is a 72 year old female that returns for follow up of bilateral leg ulcers. She had several theraskin and Apligraf applications applied in the clinical setting. She recently had a versa jet debridement with amnio fill, advanced wound care product, application in the operating room this past Monday. She denies pain, fever, chill, nausea, vomiting. She has changed her dressings daily with Lacey as advised. She denies recent illness. She is with her today. She is amenable to return to the operating room for serial debridement application of advanced wound care product next week. Progress of Wound: Improving - Physical Exam Vital Signs Temp Pulse Resp BP 97.6 F L 84 18 127/72 H 06/27/18 13:22 06/27/18 13:22 06/27/18 13:22 06/27/18 13:22 General: Alert, Oriented x3, Cooperative HEENT: Atraumatic Extremities: No cyanosis, Capillary Refill Less than 3 Seconds, No Calf Tenderness - Negative Kimberly and Layton sign bilateral, Diminished Peripheral Pulses, Edema - Controlled bilateral lower extremities Skin: Ulcer/ Wound - No purulence, no erythema, streaking, no odor, no infection bilateral. The Apligraf that was applied last week is incorporating well and remains intact with wound veil and Steri-Strips. The peripheral skin to all ulcer sites remains atrophic and hairless bilateral Wound Measurements and Assessment WC - Nurse 1 - General Ulcer Measurement Start: 06/27/18 13:22 Freq: Status: Active Protocol: Activity Type Activity Date Activity User E-Sign Co-Sign Detail Recorded Client Recorded Date Recorded By Document 06/27/18 13:22 DL [id number] 06/27/18 13:42 DL 06/27/18 13:22 Wound Center Nurse 1 [Ulcer Assessment] #7 right anterior proximal LE -Current Size (cm) - Length 13 -Current Size (cm) - Width 4 -Current Size (cm) - Depth 0.1 -Total Square Cm 52 -Photo Taken No -Exudate Amt Medium (34-66%) -Exudate Type Serosanguineous -Wound Margin Distinct, Outline Attached -Granulation Amt Medium (34-66%) -Granulation Quality Red -Necrosis Amt Medium (34-66%) -Necrotic Tissue Type Adherent Slough -Structure Exposed N/A -Texture (Gabriella-wound Skin Appearance) Scarring -Moisture (Gabriella-wound Skin Appearance No Abnormality ) -Color (Gabriella-wound Skin Appearance) Erythema Hemosiderin Staining -Temperature (Gabriella-wound Skin No Abnormality Appearance) (Pt Warm) -Ulcer Cleansing Wound Cleanser -Foul Odor after Cleansing No -Anesthetic Used 4% Lidocaine Solution #6 LEFT MEDIAL SUPERIOR LEG -Current Size (cm) - Length 0.8 -Current Size (cm) - Width 0.8 -Current Size (cm) - Depth 0.2 -Total Square Cm 0.64 -Photo Taken No -Exudate Amt Small (1-33%) -Exudate Type Serosanguineous -Wound Margin Distinct, Outline Attached -Granulation Amt Small (1-33%) -Granulation Quality Red -Necrosis Amt Small (1-33%) -Necrotic Tissue Type Adherent Slough -Structure Exposed N/A -Texture (Gabriella-wound Skin Appearance) Scarring -Moisture (Gabriella-wound Skin Appearance No Abnormality ) -Color (Gabriella-wound Skin Appearance) Rubor -Temperature (Gabriella-wound Skin No Abnormality Appearance) (Pt Warm) -Ulcer Cleansing Wound Cleanser -Foul Odor after Cleansing No -Anesthetic Used 4% Lidocaine Solution #5 RIGHT POSTERIOR CALF -Current Size (cm) - Length 7 -Current Size (cm) - Width 5.5 -Current Size (cm) - Depth 0.1 -Total Square Cm 38.5 -Photo Taken No -Exudate Amt Medium (34-66%) -Exudate Type Serosanguineous -Wound Margin Distinct, Outline Attached -Granulation Amt Medium (34-66%) -Granulation Quality Red -Necrosis Amt Medium (34-66%) -Necrotic Tissue Type Adherent Slough -Structure Exposed N/A -Texture (Gabriella-wound Skin Appearance) Scarring -Moisture (Gabriella-wound Skin Appearance No Abnormality ) -Color (Gabriella-wound Skin Appearance) Erythema -Temperature (Gabriella-wound Skin No Abnormality Appearance) (Pt Warm) -Ulcer Cleansing Wound Cleanser -Foul Odor after Cleansing No -Anesthetic Used 4% Lidocaine Solution #4 Left calf -Current Size (cm) - Length 1.7 -Current Size (cm) - Width 2 -Current Size (cm) - Depth 0.1 -Total Square Cm 3.4 -Photo Taken No -Exudate Amt Small (1-33%) -Exudate Type Serosanguineous -Wound Margin Distinct, Outline Attached -Granulation Amt Large (67-100%) -Granulation Quality Red -Necrosis Amt Small (1-33%) -Necrotic Tissue Type Adherent Slough -Structure Exposed N/A -Texture (Gabriella-wound Skin Appearance) Scarring -Moisture (Gabriella-wound Skin Appearance No Abnormality ) -Color (Gabriella-wound Skin Appearance) Erythema Rubor -Temperature (Gabriella-wound Skin No Abnormality Appearance) (Pt Warm) -Tenderness on Palpation (Gabriella-wound No Skin Appearance) -Ulcer Cleansing Wound Cleanser -Foul Odor after Cleansing No -Anesthetic Used 4% Lidocaine Solution #3 RIGHT MEDIAL LE CLUSTER -Current Size (cm) - Length 9.4 -Current Size (cm) - Width 10 -Current Size (cm) - Depth 0.1 -Total Square Cm 94.0 -Photo Taken No -Exudate Amt Medium (34-66%) -Exudate Type Serosanguineous -Wound Margin Distinct, Outline Attached -Granulation Amt Medium (34-66%) -Granulation Quality Red -Necrosis Amt Medium (34-66%) -Necrotic Tissue Type Adherent Slough -Structure Exposed N/A -Texture (Gabriella-wound Skin Appearance) Scarring -Moisture (Gabriella-wound Skin Appearance No Abnormality ) -Color (Gabriella-wound Skin Appearance) Erythema Mottled -Temperature (Gabriella-wound Skin No Abnormality Appearance) (Pt Warm) -Ulcer Cleansing Wound Cleanser -Foul Odor after Cleansing No -Anesthetic Used 4% Lidocaine Solution [Edema Assessment] -Right Calf (cm) 32.8 -Right Ankle (cm) 20 -Left Calf (cm) 30.5 -Left Ankle (cm) 19.4 WC - Nurse 2 - General Ulcer CM Notes Start: 06/27/18 13:22 Freq: Status: Active Protocol: Activity Type Activity Date Activity User E-Sign Co-Sign Detail Recorded Client Recorded Date Recorded By Document 06/27/18 14:14 [id number] 06/27/18 14:21 06/27/18 14:14 Wound Center Nurse 2 [Procedure/Treatment] #7 right anterior proximal LE -Time 14:15 -Correct Patient Yes -Correct Side, Site, Position Yes -Correct Procedure Yes -Procedure Performed Yes -Type of Procedure Debridement -Clinical Debridement Subcutaneous -Post Debridement Size (cm) - Length 13.1 -Post Debridement Size (cm) - Width 4.1 -Post Debridement Size (cm) - Depth 0.1 -Total Square Cm 53.71 -Wound/Ulcer Outcome Not Healed -Ulcer Cleansing Rinsed/ Irrigated with Saline -Foul Odor after Cleansing No -Bioengineered Tissue Yes -Type of bioengineered Tissue Apligraf -Expiration Date 07/03/18 -Product Lot Number [id number] -Percent Used 50 -Saline Lot Number [id number] -Topical Lidocaine (%) 4 -Bleeding Controlled with Pressure -Treatment Response Procedure Tolerated Well #6 LEFT MEDIAL SUPERIOR LEG -Time 14:16 -Correct Patient Yes -Correct Side, Site, Position Yes -Correct Procedure Yes -Procedure Performed Yes -Type of Procedure Debridement -Clinical Debridement Subcutaneous -Post Debridement Size (cm) - Length 0.9 -Post Debridement Size (cm) - Width 0.9 -Post Debridement Size (cm) - Depth 0.2 -Total Square Cm 0.81 -Wound/Ulcer Outcome Not Healed -Ulcer Cleansing Rinsed/ Irrigated with Saline -Foul Odor after Cleansing No -Bioengineered Tissue No -Topical Lidocaine (%) 4 -Bleeding Controlled with Pressure -Treatment Response Procedure Tolerated Well #5 RIGHT POSTERIOR CALF -Time 14:17 -Correct Patient Yes -Correct Side, Site, Position Yes -Correct Procedure Yes -Procedure Performed Yes -Post Debridement Size (cm) - Length 7.0 -Post Debridement Size (cm) - Width 5.5 -Post Debridement Size (cm) - Depth 0.1 -Total Square Cm 38.50 -Wound/Ulcer Outcome Not Healed -Ulcer Cleansing Rinsed/ Irrigated with Saline -Foul Odor after Cleansing No -Bioengineered Tissue No -Bleeding Controlled with NA -Other apligrap #3 intact covered with wound veil secured with steri strips -Treatment Response Procedure Tolerated Well #4 Left calf -Time 14:18 -Correct Patient Yes -Correct Side, Site, Position Yes -Correct Procedure Yes -Procedure Performed Yes -Type of Procedure Debridement -Clinical Debridement Subcutaneous -Post Debridement Size (cm) - Length 1.8 -Post Debridement Size (cm) - Width 2.1 -Post Debridement Size (cm) - Depth 0.1 -Total Square Cm 3.78 -Wound/Ulcer Outcome Not Healed -Ulcer Cleansing Rinsed/ Irrigated with Saline -Foul Odor after Cleansing No -Bioengineered Tissue No -Injectable Lidocaine (%) 4 -Bleeding Controlled with Pressure -Treatment Response Procedure Tolerated Well #3 RIGHT MEDIAL LE CLUSTER -Time 14:19 -Correct Patient Yes -Correct Side, Site, Position Yes -Correct Procedure Yes -Procedure Performed Yes -Type of Procedure Debridement -Clinical Debridement Subcutaneous -Post Debridement Size (cm) - Length 9.5 -Post Debridement Size (cm) - Width 10.1 -Post Debridement Size (cm) - Depth 0.1 -Total Square Cm 95.95 -Wound/Ulcer Outcome Not Healed -Ulcer Cleansing Rinsed/ Irrigated with Saline -Foul Odor after Cleansing No -Bioengineered Tissue Yes -Type of bioengineered Tissue Apligraf -Expiration Date 07/03/18 -Product Lot Number [id number] -Percent Used 50 -Topical Lidocaine (%) 4 -Bleeding Controlled with Pressure -Treatment Response Procedure Tolerated Well [See Physician Procedure note for Specifics] Pain Scale: 0-10 Numeric [Pain] -Is Patient Pain Free? Yes Musculoskeletal: Muscle Wasting, Tenderness - Pain with wound manipulation and debridement is noted and controlled, - - Compartments of bilateral lower extremities remain soft Neurological: Sensory exam intact to light touch and pain Psych/Mental Status: Normal Affect, Appropriate Debridement Note Post-Debridement Measurements/Treatment WC - Nurse 2 - General Ulcer CM Notes Start: 06/27/18 13:22 Freq: Status: Active Protocol: Activity Type Activity Date Activity User E-Sign Co-Sign Detail Recorded Client Recorded Date Recorded By Document 06/27/18 14:14 TM [id number] 06/27/18 14:21 06/27/18 14:14 Wound Center Nurse 2 #7 right anterior proximal LE -Time 14:15 -Correct Patient Yes -Correct Side, Site, Position Yes -Correct Procedure Yes -Procedure Performed Yes -Type of Procedure Debridement -Clinical Debridement Subcutaneous -Post Debridement Size (cm) - Length 13.1 -Post Debridement Size (cm) - Width 4.1 -Post Debridement Size (cm) - Depth 0.1 -Total Square Cm 53.71 -Wound/Ulcer Outcome Not Healed -Ulcer Cleansing Rinsed/ Irrigated with Saline -Foul Odor after Cleansing No -Bioengineered Tissue Yes -Type of bioengineered Tissue Apligraf -Expiration Date 07/03/18 -Product Lot Number [id number] -Percent Used 50 -Saline Lot Number [id number] -Topical Lidocaine (%) 4 -Bleeding Controlled with Pressure -Treatment Response Procedure Tolerated Well #6 LEFT MEDIAL SUPERIOR LEG -Time 14:16 -Correct Patient Yes -Correct Side, Site, Position Yes -Correct Procedure Yes -Procedure Performed Yes -Type of Procedure Debridement -Clinical Debridement Subcutaneous -Post Debridement Size (cm) - Length 0.9 -Post Debridement Size (cm) - Width 0.9 -Post Debridement Size (cm) - Depth 0.2 -Total Square Cm 0.81 -Wound/Ulcer Outcome Not Healed -Ulcer Cleansing Rinsed/ Irrigated with Saline -Foul Odor after Cleansing No -Bioengineered Tissue No -Topical Lidocaine (%) 4 -Bleeding Controlled with Pressure -Treatment Response Procedure Tolerated Well #5 RIGHT POSTERIOR CALF -Time 14:17 -Correct Patient Yes -Correct Side, Site, Position Yes -Correct Procedure Yes -Procedure Performed Yes -Post Debridement Size (cm) - Length 7.0 -Post Debridement Size (cm) - Width 5.5 -Post Debridement Size (cm) - Depth 0.1 -Total Square Cm 38.50 -Wound/Ulcer Outcome Not Healed -Ulcer Cleansing Rinsed/ Irrigated with Saline -Foul Odor after Cleansing No -Bioengineered Tissue No -Bleeding Controlled with NA -Other apligrap #3 intact covered with wound veil secured with steri strips -Treatment Response Procedure Tolerated Well #4 Left calf -Time 14:18 -Correct Patient Yes -Correct Side, Site, Position Yes -Correct Procedure Yes -Procedure Performed Yes -Type of Procedure Debridement -Clinical Debridement Subcutaneous -Post Debridement Size (cm) - Length 1.8 -Post Debridement Size (cm) - Width 2.1 -Post Debridement Size (cm) - Depth 0.1 -Total Square Cm 3.78 -Wound/Ulcer Outcome Not Healed -Ulcer Cleansing Rinsed/ Irrigated with Saline -Foul Odor after Cleansing No -Bioengineered Tissue No -Injectable Lidocaine (%) 4 -Bleeding Controlled with Pressure -Treatment Response Procedure Tolerated Well #3 RIGHT MEDIAL LE CLUSTER -Time 14:19 -Correct Patient Yes -Correct Side, Site, Position Yes -Correct Procedure Yes -Procedure Performed Yes -Type of Procedure Debridement -Clinical Debridement Subcutaneous -Post Debridement Size (cm) - Length 9.5 -Post Debridement Size (cm) - Width 10.1 -Post Debridement Size (cm) - Depth 0.1 -Total Square Cm 95.95 -Wound/Ulcer Outcome Not Healed -Ulcer Cleansing Rinsed/ Irrigated with Saline -Foul Odor after Cleansing No -Bioengineered Tissue Yes -Type of bioengineered Tissue Apligraf -Expiration Date 07/03/18 -Product Lot Number [id number] -Percent Used 50 -Topical Lidocaine (%) 4 -Bleeding Controlled with Pressure -Treatment Response Procedure Tolerated Well Pain Scale: 0-10 Numeric Is Patient Pain Free? Yes Wound debrided: proximal leg Laterality: Left Type of Debridement: Excisional debridement Anesthesia Used: 4% Lidocaine Solution Depth: in the subcutaneous layer Percentage of wound debrided: 100 Instrument Used: #15 blade Tissue Removed: fibrous, devitalized subcutaneous, biofilm, slough Severity: Fat Layer Exposed Amount of bleeding with debridement: Mild Bleeding Controlled with: Pressure Patient tolerated procedure well - Additional Wound Wound debrided: posterior leg Laterality: Left Type of Debridement: Excisional debridement Anesthesia Used: 4% Lidocaine Solution Depth: in the subcutaneous layer Percentage of wound debrided: 100 Instrument Used: #15 blade Tissue Removed: fibrous, devitalized subcutaneous, biofilm, slough Severity: Fat Layer Exposed Amount of bleeding with debridement: Mild Bleeding Controlled with: Pressure Patient tolerated procedure: Patient tolerated procedure well - Additional Wound Wound debrided: posterior leg Laterality: Right Type of Debridement: Excisional debridement Anesthesia Used: 4% Lidocaine Solution Depth: in the subcutaneous layer Percentage of wound debrided: 100 Instrument Used: #15 blade Tissue Removed: fibrous, devitalized subcutaneous, biofilm, slough Severity: Fat Layer Exposed Amount of bleeding with debridement: Mild Bleeding Controlled with: Pressure Patient tolerated procedure: Patient tolerated procedure well - Additional Wound Wound debrided: anterior leg Laterality: Right Type of Debridement: Excisional debridement Anesthesia Used: 4% Lidocaine Solution Depth: in the subcutaneous layer Percentage of wound debrided: 100 Instrument Used: #15 blade Tissue Removed: fibrous, devitalized subcutaneous, biofilm, slough Severity: Fat Layer Exposed Amount of bleeding with debridement: Mild Bleeding Controlled with: Pressure Patient tolerated procedure: Patient tolerated procedure well - Additional Wound Wound debrided: medial leg Laterality: Right Type of Debridement: Excisional debridement Anesthesia Used: 4% Lidocaine Solution Depth: in the subcutaneous layer Percentage of wound debrided: 100 Instrument Used: #15 blade Tissue Removed: fibrous, devitalized subcutaneous, biofilm, slough Severity: Fat Layer Exposed Amount of bleeding with debridement: Mild Bleeding Controlled with: Pressure Patient tolerated procedure: Patient tolerated procedure well Assessment/Plan Active Problems (Last Reviewed 04/14/18 @ 12:16 by Huang Alvarado MD) Calciphylaxis (Chronic) Ulcer of left lower extremity with fat layer exposed (Chronic) Ulcer of right lower extremity with fat layer exposed (Chronic) Pain in right leg (Chronic) Pain in left leg (Chronic) Assessment: Right and left leg ulcers with fat layer exposed, chronic and noninfected. Delayed healing. venous insufficiency. Malnutrition suspected. Lower extremity pain. Multiple comorbidities noted. Calciphylaxis Plan: She was evaluated today and her care plan was discussed. Debridement to all of the aforementioned ulcer sites were performed today as noted in the clinical nursing panel. The Apligraf that was applied last week was kept intact and this is continuing to incorporate. Additional Apligraf product was applied to the anterior and medial ulcer sites of the right lower extremity according to standard protocol. This was secured in place with Steri-Strips and wound veil. She tolerated this procedure well after verbal consent was obtained. This appears to be intact without signs of infection or tissue necrosis. The peripheral skin was cleansed with antimicrobial wash and a dressing of Lacey was applied to the left lower extremity; she is advised to changes every 1-2 days. I recommend return to the operating room for more aggressive versa jet debridement and application of advanced wound care product, amniofill due to large size of these ulcers. She is amenable to proceed with this plan and she is scheduled to have this procedure performed at [facility] next Monday afternoon. Surgical consent paperwork was completed today. She has an upcoming PAT phone exam that is scheduled. The preoperative indications, planned procedure, possible benefits, risks, complication, and anticipated healing time and management were discussed. No guarantees were made and she understands this will likely be a staged procedure. I answered all of her questions. She has a follow up with Dr. Pelaez for evaluation of her arterial Doppler exam which appeared to have distal perfusion. A biopsy of the legs skin was previously obtained and the results were reviewed today and will be placed in her chart. I reiterated the importance of taking pressure off of these wound sites. She was told by her doctor to stop taking glucerna as it had too much calcium. To only take nutritional supplementation but do not have additional calcium in them. To complete course of sodium thiosulfate for treatment of calciphylaxis as prescribed once a week for 1 month. I answered all of her questions.
--- NOTE | 2018-06-27 17:23 | PN.PCM_ITS ---
(1) Ulcer of right lower extremity with fat layer exposed Status: Chronic Current Visit: Yes Code(s): L97.912 - Non-pressure chronic ulcer of unspecified part of right lower leg with fat layer exposed (2) Ulcer of left lower extremity with fat layer exposed Status: Chronic Current Visit: Yes Code(s): L97.922 - Non-pressure chronic ulcer of unspecified part of left lower leg with fat layer exposed (3) Calciphylaxis Status: Chronic Current Visit: Yes Code(s): E83.59 - Other disorders of calcium metabolism (4) Pain in right leg Status: Chronic Current Visit: Yes Code(s): M79.604 - Pain in right leg (5) Pain in left leg Status: Chronic Current Visit: Yes Code(s): M79.605 - Pain in left leg Type of Wound Date of Service: 06/27/18 Chief Complaint: Wounds/ulcers of b/l lower legs History of Wound: Di is a 72 year old female that returns for follow up of bilateral leg ulcers. She had several theraskin and Apligraf applications applied in the clinical setting. She recently had a versa jet debridement with amnio fill, advanced wound care product, application in the operating room this past Monday. She denies pain, fever, chill, nausea, vomiting. She has changed her dressings daily with Lacey as advised. She denies recent illness. She is with her today. She is amenable to return to the operating room for serial debridement application of advanced wound care product next week. Progress of Wound: Improving - Physical Exam Vital Signs Temp Pulse Resp BP 97.6 F L 84 18 127/72 H 06/27/18 13:22 06/27/18 13:22 06/27/18 13:22 06/27/18 13:22 General: Alert, Oriented x3, Cooperative HEENT: Atraumatic Extremities: No cyanosis, Capillary Refill Less than 3 Seconds, No Calf Tenderness - Negative Kimberly and Layton sign bilateral, Diminished Peripheral Pulses, Edema - Controlled bilateral lower extremities Skin: Ulcer/ Wound - No purulence, no erythema, streaking, no odor, no infection bilateral. The Apligraf that was applied last week is incorporating well and remains intact with wound veil and Steri-Strips. The peripheral skin to all ulcer sites remains atrophic and hairless bilateral Wound Measurements and Assessment WC - Nurse 1 - General Ulcer Measurement Start: 06/27/18 13:22 Freq: Status: Active Protocol: Activity Type Activity Date Activity User E-Sign Co-Sign Detail Recorded Client Recorded Date Recorded By Document 06/27/18 13:22 DL [id number] 06/27/18 13:42 DL 06/27/18 13:22 Wound Center Nurse 1 [Ulcer Assessment] #7 right anterior proximal LE -Current Size (cm) - Length 13 -Current Size (cm) - Width 4 -Current Size (cm) - Depth 0.1 -Total Square Cm 52 -Photo Taken No -Exudate Amt Medium (34-66%) -Exudate Type Serosanguineous -Wound Margin Distinct, Outline Attached -Granulation Amt Medium (34-66%) -Granulation Quality Red -Necrosis Amt Medium (34-66%) -Necrotic Tissue Type Adherent Slough -Structure Exposed N/A -Texture (Gabriella-wound Skin Appearance) Scarring -Moisture (Gabriella-wound Skin Appearance No Abnormality ) -Color (Gabriella-wound Skin Appearance) Erythema Hemosiderin Staining -Temperature (Gabriella-wound Skin No Abnormality Appearance) (Pt Warm) -Ulcer Cleansing Wound Cleanser -Foul Odor after Cleansing No -Anesthetic Used 4% Lidocaine Solution #6 LEFT MEDIAL SUPERIOR LEG -Current Size (cm) - Length 0.8 -Current Size (cm) - Width 0.8 -Current Size (cm) - Depth 0.2 -Total Square Cm 0.64 -Photo Taken No -Exudate Amt Small (1-33%) -Exudate Type Serosanguineous -Wound Margin Distinct, Outline Attached -Granulation Amt Small (1-33%) -Granulation Quality Red -Necrosis Amt Small (1-33%) -Necrotic Tissue Type Adherent Slough -Structure Exposed N/A -Texture (Gabriella-wound Skin Appearance) Scarring -Moisture (Gabriella-wound Skin Appearance No Abnormality ) -Color (Gabriella-wound Skin Appearance) Rubor -Temperature (Gabriella-wound Skin No Abnormality Appearance) (Pt Warm) -Ulcer Cleansing Wound Cleanser -Foul Odor after Cleansing No -Anesthetic Used 4% Lidocaine Solution #5 RIGHT POSTERIOR CALF -Current Size (cm) - Length 7 -Current Size (cm) - Width 5.5 -Current Size (cm) - Depth 0.1 -Total Square Cm 38.5 -Photo Taken No -Exudate Amt Medium (34-66%) -Exudate Type Serosanguineous -Wound Margin Distinct, Outline Attached -Granulation Amt Medium (34-66%) -Granulation Quality Red -Necrosis Amt Medium (34-66%) -Necrotic Tissue Type Adherent Slough -Structure Exposed N/A -Texture (Gabriella-wound Skin Appearance) Scarring -Moisture (Gabriella-wound Skin Appearance No Abnormality ) -Color (Gabriella-wound Skin Appearance) Erythema -Temperature (Gabriella-wound Skin No Abnormality Appearance) (Pt Warm) -Ulcer Cleansing Wound Cleanser -Foul Odor after Cleansing No -Anesthetic Used 4% Lidocaine Solution #4 Left calf -Current Size (cm) - Length 1.7 -Current Size (cm) - Width 2 -Current Size (cm) - Depth 0.1 -Total Square Cm 3.4 -Photo Taken No -Exudate Amt Small (1-33%) -Exudate Type Serosanguineous -Wound Margin Distinct, Outline Attached -Granulation Amt Large (67-100%) -Granulation Quality Red -Necrosis Amt Small (1-33%) -Necrotic Tissue Type Adherent Slough -Structure Exposed N/A -Texture (Gabriella-wound Skin Appearance) Scarring -Moisture (Gabriella-wound Skin Appearance No Abnormality ) -Color (Gabriella-wound Skin Appearance) Erythema Rubor -Temperature (Gabriella-wound Skin No Abnormality Appearance) (Pt Warm) -Tenderness on Palpation (Gabriella-wound No Skin Appearance) -Ulcer Cleansing Wound Cleanser -Foul Odor after Cleansing No -Anesthetic Used 4% Lidocaine Solution #3 RIGHT MEDIAL LE CLUSTER -Current Size (cm) - Length 9.4 -Current Size (cm) - Width 10 -Current Size (cm) - Depth 0.1 -Total Square Cm 94.0 -Photo Taken No -Exudate Amt Medium (34-66%) -Exudate Type Serosanguineous -Wound Margin Distinct, Outline Attached -Granulation Amt Medium (34-66%) -Granulation Quality Red -Necrosis Amt Medium (34-66%) -Necrotic Tissue Type Adherent Slough -Structure Exposed N/A -Texture (Gabriella-wound Skin Appearance) Scarring -Moisture (Gabriella-wound Skin Appearance No Abnormality ) -Color (Gabriella-wound Skin Appearance) Erythema Mottled -Temperature (Gabriella-wound Skin No Abnormality Appearance) (Pt Warm) -Ulcer Cleansing Wound Cleanser -Foul Odor after Cleansing No -Anesthetic Used 4% Lidocaine Solution [Edema Assessment] -Right Calf (cm) 32.8 -Right Ankle (cm) 20 -Left Calf (cm) 30.5 -Left Ankle (cm) 19.4 WC - Nurse 2 - General Ulcer CM Notes Start: 06/27/18 13:22 Freq: Status: Active Protocol: Activity Type Activity Date Activity User E-Sign Co-Sign Detail Recorded Client Recorded Date Recorded By Document 06/27/18 14:14 [id number] 06/27/18 14:21 06/27/18 14:14 Wound Center Nurse 2 [Procedure/Treatment] #7 right anterior proximal LE -Time 14:15 -Correct Patient Yes -Correct Side, Site, Position Yes -Correct Procedure Yes -Procedure Performed Yes -Type of Procedure Debridement -Clinical Debridement Subcutaneous -Post Debridement Size (cm) - Length 13.1 -Post Debridement Size (cm) - Width 4.1 -Post Debridement Size (cm) - Depth 0.1 -Total Square Cm 53.71 -Wound/Ulcer Outcome Not Healed -Ulcer Cleansing Rinsed/ Irrigated with Saline -Foul Odor after Cleansing No -Bioengineered Tissue Yes -Type of bioengineered Tissue Apligraf -Expiration Date 07/03/18 -Product Lot Number [id number] -Percent Used 50 -Saline Lot Number [id number] -Topical Lidocaine (%) 4 -Bleeding Controlled with Pressure -Treatment Response Procedure Tolerated Well #6 LEFT MEDIAL SUPERIOR LEG -Time 14:16 -Correct Patient Yes -Correct Side, Site, Position Yes -Correct Procedure Yes -Procedure Performed Yes -Type of Procedure Debridement -Clinical Debridement Subcutaneous -Post Debridement Size (cm) - Length 0.9 -Post Debridement Size (cm) - Width 0.9 -Post Debridement Size (cm) - Depth 0.2 -Total Square Cm 0.81 -Wound/Ulcer Outcome Not Healed -Ulcer Cleansing Rinsed/ Irrigated with Saline -Foul Odor after Cleansing No -Bioengineered Tissue No -Topical Lidocaine (%) 4 -Bleeding Controlled with Pressure -Treatment Response Procedure Tolerated Well #5 RIGHT POSTERIOR CALF -Time 14:17 -Correct Patient Yes -Correct Side, Site, Position Yes -Correct Procedure Yes -Procedure Performed Yes -Post Debridement Size (cm) - Length 7.0 -Post Debridement Size (cm) - Width 5.5 -Post Debridement Size (cm) - Depth 0.1 -Total Square Cm 38.50 -Wound/Ulcer Outcome Not Healed -Ulcer Cleansing Rinsed/ Irrigated with Saline -Foul Odor after Cleansing No -Bioengineered Tissue No -Bleeding Controlled with NA -Other apligrap #3 intact covered with wound veil secured with steri strips -Treatment Response Procedure Tolerated Well #4 Left calf -Time 14:18 -Correct Patient Yes -Correct Side, Site, Position Yes -Correct Procedure Yes -Procedure Performed Yes -Type of Procedure Debridement -Clinical Debridement Subcutaneous -Post Debridement Size (cm) - Length 1.8 -Post Debridement Size (cm) - Width 2.1 -Post Debridement Size (cm) - Depth 0.1 -Total Square Cm 3.78 -Wound/Ulcer Outcome Not Healed -Ulcer Cleansing Rinsed/ Irrigated with Saline -Foul Odor after Cleansing No -Bioengineered Tissue No -Injectable Lidocaine (%) 4 -Bleeding Controlled with Pressure -Treatment Response Procedure Tolerated Well #3 RIGHT MEDIAL LE CLUSTER -Time 14:19 -Correct Patient Yes -Correct Side, Site, Position Yes -Correct Procedure Yes -Procedure Performed Yes -Type of Procedure Debridement -Clinical Debridement Subcutaneous -Post Debridement Size (cm) - Length 9.5 -Post Debridement Size (cm) - Width 10.1 -Post Debridement Size (cm) - Depth 0.1 -Total Square Cm 95.95 -Wound/Ulcer Outcome Not Healed -Ulcer Cleansing Rinsed/ Irrigated with Saline -Foul Odor after Cleansing No -Bioengineered Tissue Yes -Type of bioengineered Tissue Apligraf -Expiration Date 07/03/18 -Product Lot Number [id number] -Percent Used 50 -Topical Lidocaine (%) 4 -Bleeding Controlled with Pressure -Treatment Response Procedure Tolerated Well [See Physician Procedure note for Specifics] Pain Scale: 0-10 Numeric [Pain] -Is Patient Pain Free? Yes Musculoskeletal: Muscle Wasting, Tenderness - Pain with wound manipulation and debridement is noted and controlled, - - Compartments of bilateral lower extremities remain soft Neurological: Sensory exam intact to light touch and pain Psych/Mental Status: Normal Affect, Appropriate Debridement Note Post-Debridement Measurements/Treatment WC - Nurse 2 - General Ulcer CM Notes Start: 06/27/18 13:22 Freq: Status: Active Protocol: Activity Type Activity Date Activity User E-Sign Co-Sign Detail Recorded Client Recorded Date Recorded By Document 06/27/18 14:14 TM [id number] 06/27/18 14:21 06/27/18 14:14 Wound Center Nurse 2 #7 right anterior proximal LE -Time 14:15 -Correct Patient Yes -Correct Side, Site, Position Yes -Correct Procedure Yes -Procedure Performed Yes -Type of Procedure Debridement -Clinical Debridement Subcutaneous -Post Debridement Size (cm) - Length 13.1 -Post Debridement Size (cm) - Width 4.1 -Post Debridement Size (cm) - Depth 0.1 -Total Square Cm 53.71 -Wound/Ulcer Outcome Not Healed -Ulcer Cleansing Rinsed/ Irrigated with Saline -Foul Odor after Cleansing No -Bioengineered Tissue Yes -Type of bioengineered Tissue Apligraf -Expiration Date 07/03/18 -Product Lot Number [id number] -Percent Used 50 -Saline Lot Number [id number] -Topical Lidocaine (%) 4 -Bleeding Controlled with Pressure -Treatment Response Procedure Tolerated Well #6 LEFT MEDIAL SUPERIOR LEG -Time 14:16 -Correct Patient Yes -Correct Side, Site, Position Yes -Correct Procedure Yes -Procedure Performed Yes -Type of Procedure Debridement -Clinical Debridement Subcutaneous -Post Debridement Size (cm) - Length 0.9 -Post Debridement Size (cm) - Width 0.9 -Post Debridement Size (cm) - Depth 0.2 -Total Square Cm 0.81 -Wound/Ulcer Outcome Not Healed -Ulcer Cleansing Rinsed/ Irrigated with Saline -Foul Odor after Cleansing No -Bioengineered Tissue No -Topical Lidocaine (%) 4 -Bleeding Controlled with Pressure -Treatment Response Procedure Tolerated Well #5 RIGHT POSTERIOR CALF -Time 14:17 -Correct Patient Yes -Correct Side, Site, Position Yes -Correct Procedure Yes -Procedure Performed Yes -Post Debridement Size (cm) - Length 7.0 -Post Debridement Size (cm) - Width 5.5 -Post Debridement Size (cm) - Depth 0.1 -Total Square Cm 38.50 -Wound/Ulcer Outcome Not Healed -Ulcer Cleansing Rinsed/ Irrigated with Saline -Foul Odor after Cleansing No -Bioengineered Tissue No -Bleeding Controlled with NA -Other apligrap #3 intact covered with wound veil secured with steri strips -Treatment Response Procedure Tolerated Well #4 Left calf -Time 14:18 -Correct Patient Yes -Correct Side, Site, Position Yes -Correct Procedure Yes -Procedure Performed Yes -Type of Procedure Debridement -Clinical Debridement Subcutaneous -Post Debridement Size (cm) - Length 1.8 -Post Debridement Size (cm) - Width 2.1 -Post Debridement Size (cm) - Depth 0.1 -Total Square Cm 3.78 -Wound/Ulcer Outcome Not Healed -Ulcer Cleansing Rinsed/ Irrigated with Saline -Foul Odor after Cleansing No -Bioengineered Tissue No -Injectable Lidocaine (%) 4 -Bleeding Controlled with Pressure -Treatment Response Procedure Tolerated Well #3 RIGHT MEDIAL LE CLUSTER -Time 14:19 -Correct Patient Yes -Correct Side, Site, Position Yes -Correct Procedure Yes -Procedure Performed Yes -Type of Procedure Debridement -Clinical Debridement Subcutaneous -Post Debridement Size (cm) - Length 9.5 -Post Debridement Size (cm) - Width 10.1 -Post Debridement Size (cm) - Depth 0.1 -Total Square Cm 95.95 -Wound/Ulcer Outcome Not Healed -Ulcer Cleansing Rinsed/ Irrigated with Saline -Foul Odor after Cleansing No -Bioengineered Tissue Yes -Type of bioengineered Tissue Apligraf -Expiration Date 07/03/18 -Product Lot Number [id number] -Percent Used 50 -Topical Lidocaine (%) 4 -Bleeding Controlled with Pressure -Treatment Response Procedure Tolerated Well Pain Scale: 0-10 Numeric Is Patient Pain Free? Yes Wound debrided: proximal leg Laterality: Left Type of Debridement: Excisional debridement Anesthesia Used: 4% Lidocaine Solution Depth: in the subcutaneous layer Percentage of wound debrided: 100 Instrument Used: #15 blade Tissue Removed: fibrous, devitalized subcutaneous, biofilm, slough Severity: Fat Layer Exposed Amount of bleeding with debridement: Mild Bleeding Controlled with: Pressure Patient tolerated procedure well - Additional Wound Wound debrided: posterior leg Laterality: Left Type of Debridement: Excisional debridement Anesthesia Used: 4% Lidocaine Solution Depth: in the subcutaneous layer Percentage of wound debrided: 100 Instrument Used: #15 blade Tissue Removed: fibrous, devitalized subcutaneous, biofilm, slough Severity: Fat Layer Exposed Amount of bleeding with debridement: Mild Bleeding Controlled with: Pressure Patient tolerated procedure: Patient tolerated procedure well - Additional Wound Wound debrided: posterior leg Laterality: Right Type of Debridement: Excisional debridement Anesthesia Used: 4% Lidocaine Solution Depth: in the subcutaneous layer Percentage of wound debrided: 100 Instrument Used: #15 blade Tissue Removed: fibrous, devitalized subcutaneous, biofilm, slough Severity: Fat Layer Exposed Amount of bleeding with debridement: Mild Bleeding Controlled with: Pressure Patient tolerated procedure: Patient tolerated procedure well - Additional Wound Wound debrided: anterior leg Laterality: Right Type of Debridement: Excisional debridement Anesthesia Used: 4% Lidocaine Solution Depth: in the subcutaneous layer Percentage of wound debrided: 100 Instrument Used: #15 blade Tissue Removed: fibrous, devitalized subcutaneous, biofilm, slough Severity: Fat Layer Exposed Amount of bleeding with debridement: Mild Bleeding Controlled with: Pressure Patient tolerated procedure: Patient tolerated procedure well - Additional Wound Wound debrided: medial leg Laterality: Right Type of Debridement: Excisional debridement Anesthesia Used: 4% Lidocaine Solution Depth: in the subcutaneous layer Percentage of wound debrided: 100 Instrument Used: #15 blade Tissue Removed: fibrous, devitalized subcutaneous, biofilm, slough Severity: Fat Layer Exposed Amount of bleeding with debridement: Mild Bleeding Controlled with: Pressure Patient tolerated procedure: Patient tolerated procedure well Assessment/Plan Active Problems (Last Reviewed 04/14/18 @ 12:16 by Huang Alvarado MD) Calciphylaxis (Chronic) Ulcer of left lower extremity with fat layer exposed (Chronic) Ulcer of right lower extremity with fat layer exposed (Chronic) Pain in right leg (Chronic) Pain in left leg (Chronic) Assessment: Right and left leg ulcers with fat layer exposed, chronic and noninfected. Delayed healing. venous insufficiency. Malnutrition suspected. Lower extremity pain. Multiple comorbidities noted. Calciphylaxis Plan: She was evaluated today and her care plan was discussed. Debridement to all of the aforementioned ulcer sites were performed today as noted in the clinical nursing panel. The Apligraf that was applied last week was kept intact and this is continuing to incorporate. Additional Apligraf product was applied to the anterior and medial ulcer sites of the right lower extremity according to standard protocol. This was secured in place with Steri-Strips and wound veil. She tolerated this procedure well after verbal consent was obtained. This appears to be intact without signs of infection or tissue necrosis. The peripheral skin was cleansed with antimicrobial wash and a dressing of Lacey was applied to the left lower extremity; she is advised to changes every 1-2 days. I recommend return to the operating room for more aggressive versa jet debridement and application of advanced wound care product, amniofill due to large size of these ulcers. She is amenable to proceed with this plan and she is scheduled to have this procedure performed at [facility] next Monday afternoon. Surgical consent paperwork was completed today. She has an upcoming PAT phone exam that is scheduled. The preoperative indications, planned procedure, possible benefits, risks, complication, and anticipated healing time and management were discussed. No guarantees were made and she understands this will likely be a staged procedure. I answered all of her questions. She has a follow up with Dr. Pelaez for evaluation of her arterial Doppler exam which appeared to have distal perfusion. A biopsy of the legs skin was previously obtained and the results were reviewed today and will be placed in her chart. I reiterated the importance of taking pressure off of these wound sites. She was told by her doctor to stop taking glucerna as it had too much calcium. To only take nutritional supplementation but do not have additional calcium in them. To complete course of sodium thiosulfate for treatment of calciphylaxis as prescribed once a week for 1 month. I answered all of her questions.
[2018-07-11 08:23] VITALS: BP 156/97; PULSE 80; RESP 18; TEMP 36; BMI 35.4
--- NOTE | 2018-07-11 08:59 | PCM.WC.PN ---
(1) Ulcer of right lower extremity with fat layer exposed Status: Chronic Current Visit: Yes Code(s): L97.912 - Non-pressure chronic ulcer of unspecified part of right lower leg with fat layer exposed (2) Ulcer of left lower extremity with fat layer exposed Status: Chronic Current Visit: Yes Code(s): L97.922 - Non-pressure chronic ulcer of unspecified part of left lower leg with fat layer exposed (3) Calciphylaxis Status: Chronic Current Visit: Yes Code(s): E83.59 - Other disorders of calcium metabolism (4) Pain in right leg Status: Chronic Current Visit: Yes Code(s): M79.604 - Pain in right leg (5) Pain in left leg Status: Chronic Current Visit: Yes Code(s): M79.605 - Pain in left leg Type of Wound Date of Service: 07/11/18 Chief Complaint: Wounds/ulcers of b/l lower legs History of Wound: Di is a 72 year old female that returns for follow up of bilateral leg ulcers. She had several theraskin and Apligraf applications applied in the clinical setting. She recently had a versa jet debridement with amnio fill, advanced wound care product, application in the operating room this past week. She denies pain, fever, chill, nausea, vomiting. She has kept her dressing clean and intact. She denies recent illness. She is with her today. She will follow-up with her central supply assistant, Dr. Almonte, to see if additional IV thiosulfate administration is appropriate pending her updated lab work. Progress of Wound: Improving - Physical Exam Vital Signs Temp Pulse Resp BP 96.8 F L 80 18 156/97 H 07/11/18 08:23 07/11/18 08:23 07/11/18 08:23 07/11/18 08:23 General: Alert, Oriented x3, Cooperative Extremities: No cyanosis, Capillary Refill Less than 3 Seconds, No Calf Tenderness - Negative Kimberly and Layton signs, Diminished Peripheral Pulses, Edema - Bilateral lower extremities Skin: Ulcer/ Wound - The amnio fill is continuing to incorporate to both leg ulcer sites and the Adaptic and Steri-Strips remain in place. The peripheral skin is hairless and atrophic. There is no necrosis, purulence, erythema, streaking, or infection bilateral Wound Measurements and Assessment WC - Nurse 1 - General Ulcer Measurement Start: 06/27/18 13:22 Freq: Status: Active Protocol: Activity Type Activity Date Activity User E-Sign Co-Sign Detail Recorded Client Recorded Date Recorded By Document 07/11/18 08:23 DL [id number] 07/11/18 08:26 DL 07/11/18 08:23 Wound Center Nurse 1 [Ulcer Assessment] #7 right anterior proximal LE -Photo Taken No -Texture (Gabriella-wound Skin Appearance) No Abnormality -Moisture (Gabriella-wound Skin Appearance No Abnormality ) -Color (Gabriella-wound Skin Appearance) Hemosiderin Staining -Temperature (Gabriella-wound Skin No Abnormality Appearance) (Pt Warm) -Tenderness on Palpation (Gabriella-wound No Skin Appearance) -Foul Odor after Cleansing No #6 LEFT MEDIAL SUPERIOR LEG -Photo Taken No -Texture (Gabriella-wound Skin Appearance) No Abnormality -Moisture (Gabriella-wound Skin Appearance No Abnormality ) -Color (Gabriella-wound Skin Appearance) No Abnormality -Temperature (Gabriella-wound Skin No Abnormality Appearance) (Pt Warm) -Foul Odor after Cleansing No #5 RIGHT POSTERIOR CALF -Photo Taken No -Texture (Gabriella-wound Skin Appearance) No Abnormality -Moisture (Gabriella-wound Skin Appearance No Abnormality ) -Color (Gabriella-wound Skin Appearance) No Abnormality -Temperature (Gabriella-wound Skin No Abnormality Appearance) (Pt Warm) -Foul Odor after Cleansing No #4 Left calf -Texture (Gabriella-wound Skin Appearance) No Abnormality -Moisture (Gabriella-wound Skin Appearance No Abnormality ) -Color (Gabriella-wound Skin Appearance) No Abnormality -Tenderness on Palpation (Gabriella-wound No Skin Appearance) -Foul Odor after Cleansing No #3 RIGHT MEDIAL LE CLUSTER -Photo Taken No -Texture (Gabriella-wound Skin Appearance) No Abnormality -Moisture (Gabriella-wound Skin Appearance No Abnormality ) -Color (Gabriella-wound Skin Appearance) No Abnormality -Temperature (Gabriella-wound Skin No Abnormality Appearance) (Pt Warm) -Tenderness on Palpation (Gabriella-wound No Skin Appearance) -Foul Odor after Cleansing No [Edema Assessment] -Right Calf (cm) 31 -Right Ankle (cm) 20 -Left Calf (cm) 29 -Left Ankle (cm) 19 WC - Nurse 2 - General Ulcer CM Notes Start: 06/27/18 13:22 Freq: Status: Active Protocol: Activity Type Activity Date Activity User E-Sign Co-Sign Detail Recorded Client Recorded Date Recorded By Document 07/11/18 08:50 [id number] 07/11/18 08:55 07/11/18 08:50 Wound Center Nurse 2 [Procedure/Treatment] #7 right anterior proximal LE -Time 08:51 -Correct Patient Yes -Correct Side, Site, Position Yes -Correct Procedure Yes -Procedure Performed Yes -Post Debridement Size (cm) - Length 13.1 -Post Debridement Size (cm) - Width 4.1 -Post Debridement Size (cm) - Depth 0.1 -Total Square Cm 53.71 -Wound/Ulcer Outcome Not Healed -Ulcer Cleansing Rinsed/ Irrigated with Saline -Foul Odor after Cleansing No -Bioengineered Tissue No -Bleeding Controlled with NA -Other no debridement amniofill intact covered with c-hydrogel -Treatment Response Procedure Tolerated Well #6 LEFT MEDIAL SUPERIOR LEG -Time 08:51 -Correct Patient Yes -Correct Side, Site, Position Yes -Correct Procedure Yes -Procedure Performed Yes -Post Debridement Size (cm) - Length 0.9 -Post Debridement Size (cm) - Width 0.9 -Post Debridement Size (cm) - Depth 0.2 -Total Square Cm 0.81 -Wound/Ulcer Outcome Not Healed -Ulcer Cleansing Rinsed/ Irrigated with Saline -Foul Odor after Cleansing No -Bioengineered Tissue No -Bleeding Controlled with NA -Other no debridement amniofill intact covered with c-hydrogel -Treatment Response Procedure Tolerated Well #5 RIGHT POSTERIOR CALF -Time 08:51 -Correct Patient Yes -Correct Side, Site, Position Yes -Correct Procedure Yes -Procedure Performed Yes -Post Debridement Size (cm) - Length 7.0 -Post Debridement Size (cm) - Width 5.5 -Post Debridement Size (cm) - Depth 0.1 -Total Square Cm 38.50 -Wound/Ulcer Outcome Not Healed -Ulcer Cleansing Rinsed/ Irrigated with Saline -Foul Odor after Cleansing No -Bioengineered Tissue No -Bleeding Controlled with NA -Other no debridement amniofill intact covered with c-hydrogel -Treatment Response Procedure Tolerated Well #4 Left calf -Time 08:52 -Correct Patient Yes -Correct Side, Site, Position Yes -Correct Procedure Yes -Procedure Performed Yes -Post Debridement Size (cm) - Length 1.8 -Post Debridement Size (cm) - Width 2.1 -Post Debridement Size (cm) - Depth 0.1 -Total Square Cm 3.78 -Wound/Ulcer Outcome Not Healed -Ulcer Cleansing Rinsed/ Irrigated with Saline -Foul Odor after Cleansing No -Bioengineered Tissue No -Bleeding Controlled with NA -Other no debridement amniofill intact covered with c-hydrogel -Treatment Response Procedure Tolerated Well #3 RIGHT MEDIAL LE CLUSTER -Time 08:52 -Correct Patient Yes -Correct Side, Site, Position Yes -Correct Procedure Yes -Procedure Performed Yes -Post Debridement Size (cm) - Length 9.5 -Post Debridement Size (cm) - Width 10.1 -Post Debridement Size (cm) - Depth 0.1 -Total Square Cm 95.95 -Wound/Ulcer Outcome Not Healed -Ulcer Cleansing Rinsed/ Irrigated with Saline -Foul Odor after Cleansing No -Bioengineered Tissue No -Bleeding Controlled with NA -Other no debridement amniofill intact covered with c-hydrogel -Treatment Response Procedure Tolerated Well [See Physician Procedure note for Specifics] Pain Scale: 0-10 Numeric [Pain] -Is Patient Pain Free? Yes Musculoskeletal: No Tenderness to Palpation of Joints or Extremities, Muscle Wasting Neurological: Sensory exam intact to light touch and pain Psych/Mental Status: Normal Affect, Appropriate Debridement Note Post-Debridement Measurements/Treatment WC - Nurse 2 - General Ulcer CM Notes Start: 06/27/18 13:22 Freq: Status: Active Protocol: Activity Type Activity Date Activity User E-Sign Co-Sign Detail Recorded Client Recorded Date Recorded By Document 06/27/18 14:14 [id number] 06/27/18 14:21 TM Document 07/11/18 08:50 [id number] 07/11/18 08:55 TM 06/27/18 07/11/18 14:14 08:50 Wound Center Nurse 2 #7 right anterior proximal LE -Time 14:15 08:51 -Correct Patient Yes Yes -Correct Side, Site, Position Yes Yes -Correct Procedure Yes Yes -Procedure Performed Yes Yes -Type of Procedure Debridement -Clinical Debridement Subcutaneous -Post Debridement Size (cm) - Length 13.1 13.1 -Post Debridement Size (cm) - Width 4.1 4.1 -Post Debridement Size (cm) - Depth 0.1 0.1 -Total Square Cm 53.71 53.71 -Wound/Ulcer Outcome Not Healed Not Healed -Ulcer Cleansing Rinsed/ Rinsed/ Irrigated with Irrigated with Saline Saline -Foul Odor after Cleansing No No -Bioengineered Tissue Yes No -Type of bioengineered Tissue Apligraf -Expiration Date 07/03/18 -Product Lot Number [id number] -Percent Used 50 -Saline Lot Number [id number] -Topical Lidocaine (%) 4 -Bleeding Controlled with Pressure NA -Other no debridement amniofill intact covered with c-hydrogel -Treatment Response Procedure Procedure Tolerated Well Tolerated Well #6 LEFT MEDIAL SUPERIOR LEG -Time 14:16 08:51 -Correct Patient Yes Yes -Correct Side, Site, Position Yes Yes -Correct Procedure Yes Yes -Procedure Performed Yes Yes -Type of Procedure Debridement -Clinical Debridement Subcutaneous -Post Debridement Size (cm) - Length 0.9 0.9 -Post Debridement Size (cm) - Width 0.9 0.9 -Post Debridement Size (cm) - Depth 0.2 0.2 -Total Square Cm 0.81 0.81 -Wound/Ulcer Outcome Not Healed Not Healed -Ulcer Cleansing Rinsed/ Rinsed/ Irrigated with Irrigated with Saline Saline -Foul Odor after Cleansing No No -Bioengineered Tissue No No -Topical Lidocaine (%) 4 -Bleeding Controlled with Pressure NA -Other no debridement amniofill intact covered with c-hydrogel -Treatment Response Procedure Procedure Tolerated Well Tolerated Well #5 RIGHT POSTERIOR CALF -Time 14:17 08:51 -Correct Patient Yes Yes -Correct Side, Site, Position Yes Yes -Correct Procedure Yes Yes -Procedure Performed Yes Yes -Post Debridement Size (cm) - Length 7.0 7.0 -Post Debridement Size (cm) - Width 5.5 5.5 -Post Debridement Size (cm) - Depth 0.1 0.1 -Total Square Cm 38.50 38.50 -Wound/Ulcer Outcome Not Healed Not Healed -Ulcer Cleansing Rinsed/ Rinsed/ Irrigated with Irrigated with Saline Saline -Foul Odor after Cleansing No No -Bioengineered Tissue No No -Bleeding Controlled with NA NA -Other apligrap #3 no debridement intact covered amniofill with wound veil intact covered secured with with c-hydrogel steri strips -Treatment Response Procedure Procedure Tolerated Well Tolerated Well #4 Left calf -Time 14:18 08:52 -Correct Patient Yes Yes -Correct Side, Site, Position Yes Yes -Correct Procedure Yes Yes -Procedure Performed Yes Yes -Type of Procedure Debridement -Clinical Debridement Subcutaneous -Post Debridement Size (cm) - Length 1.8 1.8 -Post Debridement Size (cm) - Width 2.1 2.1 -Post Debridement Size (cm) - Depth 0.1 0.1 -Total Square Cm 3.78 3.78 -Wound/Ulcer Outcome Not Healed Not Healed -Ulcer Cleansing Rinsed/ Rinsed/ Irrigated with Irrigated with Saline Saline -Foul Odor after Cleansing No No -Bioengineered Tissue No No -Injectable Lidocaine (%) 4 -Bleeding Controlled with Pressure NA -Other no debridement amniofill intact covered with c-hydrogel -Treatment Response Procedure Procedure Tolerated Well Tolerated Well #3 RIGHT MEDIAL LE CLUSTER -Time 14:19 08:52 -Correct Patient Yes Yes -Correct Side, Site, Position Yes Yes -Correct Procedure Yes Yes -Procedure Performed Yes Yes -Type of Procedure Debridement -Clinical Debridement Subcutaneous -Post Debridement Size (cm) - Length 9.5 9.5 -Post Debridement Size (cm) - Width 10.1 10.1 -Post Debridement Size (cm) - Depth 0.1 0.1 -Total Square Cm 95.95 95.95 -Wound/Ulcer Outcome Not Healed Not Healed -Ulcer Cleansing Rinsed/ Rinsed/ Irrigated with Irrigated with Saline Saline -Foul Odor after Cleansing No No -Bioengineered Tissue Yes No -Type of bioengineered Tissue Apligraf -Expiration Date 07/03/18 -Product Lot Number [id number] -Percent Used 50 -Topical Lidocaine (%) 4 -Bleeding Controlled with Pressure NA -Other no debridement amniofill intact covered with c-hydrogel -Treatment Response Procedure Procedure Tolerated Well Tolerated Well Pain Scale: 0-10 Numeric Is Patient Pain Free? Yes Yes No debridement was completed today - Additional debridement will be considered next week as the amnio fill [place] wound care product continues to incorporate in for this upcoming week Assessment/Plan Active Problems (Last Reviewed 04/14/18 @ 12:16 by Huang Alvarado MD) Calciphylaxis (Chronic) Ulcer of left lower extremity with fat layer exposed (Chronic) Ulcer of right lower extremity with fat layer exposed (Chronic) Pain in right leg (Chronic) Pain in left leg (Chronic) Assessment: Right and left leg ulcers with fat layer exposed, chronic and noninfected. Delayed healing. venous insufficiency. Malnutrition suspected. Lower extremity pain. Multiple comorbidities noted. Calciphylaxis Plan: She was evaluated today and her care plan was discussed. She underwent a recent surgical debridement in the operating room with a versa jet and advanced wound care product, amnio fill was applied and secured in place last week. This was left intact again and I advised her to avoid dressing changes this upcoming week. Hydrogel was applied over the Adaptic to maintain a moist environment to promote further incorporation. This appears to be intact without signs of infection or tissue necrosis. She had a follow up with Dr. Pelaez for evaluation of her arterial Doppler exam which appeared to have distal perfusion. A biopsy of the leg skin was previously obtained and the results were reviewed today and will be placed in her chart. I reiterated the importance of taking pressure off of these wound sites. She was told by her doctor to stop taking glucerna as it had too much calcium. To only take nutritional supplementation but do not have additional calcium in them. To complete course of sodium thiosulfate for treatment of calciphylaxis as prescribed. Repeat prescription of this course will be considered after she follows up with her central supply assistant, Dr. Almonte, pending her updated lab results. I answered all of her questions.
[2018-07-18 08:09] VITALS: BP 136/63; PULSE 94; RESP 16; TEMP 36.8; BMI 35.4
--- NOTE | 2018-07-18 09:30 | PCM.WC.PN ---
(1) Ulcer of right lower extremity with fat layer exposed Status: Chronic Current Visit: Yes Code(s): L97.912 - Non-pressure chronic ulcer of unspecified part of right lower leg with fat layer exposed (2) Ulcer of left lower extremity with fat layer exposed Status: Chronic Current Visit: Yes Code(s): L97.922 - Non-pressure chronic ulcer of unspecified part of left lower leg with fat layer exposed (3) Calciphylaxis Status: Chronic Current Visit: Yes Code(s): E83.59 - Other disorders of calcium metabolism (4) Pain in right leg Status: Chronic Current Visit: Yes Code(s): M79.604 - Pain in right leg (5) Pain in left leg Status: Chronic Current Visit: Yes Code(s): M79.605 - Pain in left leg Type of Wound Date of Service: 07/18/18 Chief Complaint: Ulcers bilateral legs History of Wound: Di is a 72 year old female that returns for follow up of bilateral leg ulcers. She had several theraskin and Apligraf applications applied in the clinical setting. She recently had a versa jet debridement with serial amnio fill, advanced wound care product, application in the operating room this past week. She denies pain, fever, chill, nausea, vomiting. She has kept her dressing clean and intact. She denies recent illness. She will follow-up with her paper winder, Dr. Almonte, to see if additional IV thiosulfate administration is appropriate pending her updated lab work. Progress of Wound: Improving - Physical Exam Vital Signs Temp Pulse Resp BP 98.2 F 94 16 136/63 H 07/18/18 08:09 07/18/18 08:09 07/18/18 08:09 07/18/18 08:09 General: Alert, Oriented x3, Cooperative HEENT: Atraumatic Extremities: No cyanosis, Capillary Refill Less than 3 Seconds, No Calf Tenderness - Negative Kimberly and Layton sign bilateral, Diminished Peripheral Pulses, Edema Skin: Ulcer/ Wound - No purulence, erythema, streaking, odor, or infection. There is significant peripheral epithelialization versus cluster sites. The peripheral skin is atrophic and hairless. There is no eschar necrosis noted today bilateral, - - The pre-debridement measurement for the right lateral leg is 5.1 x 3.9 x 0.1 cm and 50% of this ulcer site was debrided. The pre-debridement measurements for the right medial leg is 6.6 x 4.6 x 0.1 cm and 50% of this ulcer site was debrided. The pre-debridement measurement for the right posterior leg is 9.9 x 4.6 x 0.1 cm and 50% of this ulcer site was debrided. The pre-debridement measurement for the left lateral leg was 1.2 x 2.1 x 0.1 cm and 100% of this ulcer site was debrided. Wound Measurements and Assessment WC - Nurse 1 - General Ulcer Measurement Start: 06/27/18 13:22 Freq: Status: Active Protocol: Activity Type Activity Date Activity User E-Sign Co-Sign Detail Recorded Client Recorded Date Recorded By Document 07/18/18 08:09 [id number] 07/18/18 08:19 07/18/18 08:09 Wound Center Nurse 1 [Ulcer Assessment] #7 right anterior proximal LE -Combined with other wound No -Exudate Amt Small (1-33%) -Exudate Type Serosanguineous -Wound Margin Distinct, Outline Attached #6 LEFT MEDIAL SUPERIOR LEG -Combined with other wound No -Exudate Amt Small (1-33%) -Exudate Type Serosanguineous -Wound Margin Distinct, Outline Attached #5 RIGHT MEDIAL CALF -Combined with other wound No -Exudate Amt Small (1-33%) -Exudate Type Serosanguineous -Wound Margin Distinct, Outline Attached #4 Left LATERAL calf -Combined with other wound No -Exudate Amt Small (1-33%) -Exudate Type Serosanguineous -Wound Margin Distinct, Outline Attached #3 RIGHT POSTERIOR LATERAL LE CLUSTER -Combined with other wound No -Exudate Amt Small (1-33%) -Exudate Type Serosanguineous [Edema Assessment] -Right Calf (cm) 33 -Right Ankle (cm) 22 -Left Calf (cm) 31 -Left Ankle (cm) 21 WC - Nurse 2 - General Ulcer CM Notes Start: 06/27/18 13:22 Freq: Status: Active Protocol: Activity Type Activity Date Activity User E-Sign Co-Sign Detail Recorded Client Recorded Date Recorded By Document 07/18/18 08:47 [id number] 07/18/18 09:12 07/18/18 08:47 Wound Center Nurse 2 [Procedure/Treatment] #8 RIGHT POSTERIOR CALF -Time 09:06 -Correct Patient Yes -Correct Side, Site, Position Yes -Correct Procedure Yes -Procedure Performed Yes -Type of Procedure Debridement -Clinical Debridement Subcutaneous -Post Debridement Size (cm) - Length 10.0 -Post Debridement Size (cm) - Width 4.7 -Post Debridement Size (cm) - Depth 0.1 -Total Square Cm 47.00 -Wound/Ulcer Outcome Not Healed -Ulcer Cleansing Rinsed/ Irrigated with Saline -Foul Odor after Cleansing No -Bioengineered Tissue No -Topical Lidocaine (%) 5 -Bleeding Controlled with Pressure -Treatment Response Procedure Tolerated Well #7 right anterior proximal LE -Time 08:51 -Correct Patient Yes -Correct Side, Site, Position Yes -Correct Procedure Yes -Procedure Performed Yes -Post Debridement Size (cm) - Length 0 -Post Debridement Size (cm) - Width 0 -Post Debridement Size (cm) - Depth 0 -Total Square Cm 0 -Wound/Ulcer Outcome Healed- Epithelialized -Ulcer Cleansing Rinsed/ Irrigated with Saline -Foul Odor after Cleansing No -Bioengineered Tissue No -Topical Lidocaine (%) 5 -Bleeding Controlled with NA -Treatment Response Procedure Tolerated Well #6 LEFT MEDIAL SUPERIOR LEG -Time 08:53 -Correct Patient Yes -Correct Side, Site, Position Yes -Correct Procedure Yes -Procedure Performed Yes -Post Debridement Size (cm) - Length 0 -Post Debridement Size (cm) - Width 0 -Post Debridement Size (cm) - Depth 0 -Total Square Cm 0 -Wound/Ulcer Outcome Healed- Epithelialized -Ulcer Cleansing Rinsed/ Irrigated with Saline -Foul Odor after Cleansing No -Bioengineered Tissue No -Injectable Lidocaine (%) 5 -Bleeding Controlled with NA -Treatment Response Procedure Tolerated Well #5 RIGHT MEDIAL CALF -Time 08:53 -Correct Patient Yes -Correct Side, Site, Position Yes -Correct Procedure Yes -Procedure Performed Yes -Type of Procedure Debridement -Clinical Debridement Subcutaneous -Post Debridement Size (cm) - Length 6.7 -Post Debridement Size (cm) - Width 4.7 -Post Debridement Size (cm) - Depth 0.1 -Total Square Cm 31.49 -Wound/Ulcer Outcome Not Healed -Ulcer Cleansing Rinsed/ Irrigated with Saline -Foul Odor after Cleansing No -Bioengineered Tissue No -Topical Lidocaine (%) 5 -Bleeding Controlled with Pressure -Treatment Response Procedure Tolerated Well #4 Left LATERAL calf -Time 09:03 -Correct Patient Yes -Correct Side, Site, Position Yes -Correct Procedure Yes -Procedure Performed Yes -Type of Procedure Debridement -Clinical Debridement Subcutaneous -Post Debridement Size (cm) - Length 1.3 -Post Debridement Size (cm) - Width 2.2 -Post Debridement Size (cm) - Depth 0.1 -Total Square Cm 2.86 -Wound/Ulcer Outcome Not Healed -Ulcer Cleansing Rinsed/ Irrigated with Saline -Foul Odor after Cleansing No -Bioengineered Tissue No -Topical Lidocaine (%) 5 -Bleeding Controlled with Pressure -Treatment Response Procedure Tolerated Well #3 RIGHT POSTERIOR LATERAL LE CLUSTER -Time 09:05 -Correct Patient Yes -Correct Side, Site, Position Yes -Correct Procedure Yes -Procedure Performed Yes -Type of Procedure Debridement -Clinical Debridement Subcutaneous -Post Debridement Size (cm) - Length 5.2 -Post Debridement Size (cm) - Width 4.0 -Post Debridement Size (cm) - Depth 0.1 -Total Square Cm 20.80 -Wound/Ulcer Outcome Not Healed -Ulcer Cleansing Rinsed/ Irrigated with Saline -Foul Odor after Cleansing No -Bioengineered Tissue No -Topical Lidocaine (%) 5 -Bleeding Controlled with Pressure -Treatment Response Procedure Tolerated Well [See Physician Procedure note for Specifics] Pain Scale: 0-10 Numeric [Pain] -Is Patient Pain Free? Yes Musculoskeletal: No Tenderness to Palpation of Joints or Extremities, Tenderness - Decreased tenderness with wound manipulation, - - Compartments remain soft bilateral lower extremities Neurological: Sensory exam intact to light touch and pain Psych/Mental Status: Normal Affect, Appropriate Debridement Note Post-Debridement Measurements/Treatment WC - Nurse 2 - General Ulcer CM Notes Start: 06/27/18 13:22 Freq: Status: Active Protocol: Activity Type Activity Date Activity User E-Sign Co-Sign Detail Recorded Client Recorded Date Recorded By Document 06/27/18 14:14 [id number] 06/27/18 14:21 TM Document 07/11/18 08:50 [id number] 07/11/18 08:55 TM Document 07/18/18 08:47 [id number] 07/18/18 09:12 TM 06/27/18 07/11/18 07/18/18 14:14 08:50 08:47 Wound Center Nurse 2 #8 RIGHT POSTERIOR CALF -Time 09:06 -Correct Patient Yes -Correct Side, Site, Position Yes -Correct Procedure Yes -Procedure Performed Yes -Type of Procedure Debridement -Clinical Debridement Subcutaneous -Post Debridement Size (cm) - Length 10.0 -Post Debridement Size (cm) - Width 4.7 -Post Debridement Size (cm) - Depth 0.1 -Total Square Cm 47.00 -Wound/Ulcer Outcome Not Healed -Ulcer Cleansing Rinsed/ Irrigated with Saline -Foul Odor after Cleansing No -Bioengineered Tissue No -Topical Lidocaine (%) 5 -Bleeding Controlled with Pressure -Treatment Response Procedure Tolerated Well #7 right anterior proximal LE -Time 14:15 08:51 08:51 -Correct Patient Yes Yes Yes -Correct Side, Site, Position Yes Yes Yes -Correct Procedure Yes Yes Yes -Procedure Performed Yes Yes Yes -Type of Procedure Debridement -Clinical Debridement Subcutaneous -Post Debridement Size (cm) - Length 13.1 13.1 0 -Post Debridement Size (cm) - Width 4.1 4.1 0 -Post Debridement Size (cm) - Depth 0.1 0.1 0 -Total Square Cm 53.71 53.71 0 -Wound/Ulcer Outcome Not Healed Not Healed Healed- Epithelialized -Ulcer Cleansing Rinsed/ Rinsed/ Rinsed/ Irrigated with Irrigated with Irrigated with Saline Saline Saline -Foul Odor after Cleansing No No No -Bioengineered Tissue Yes No No -Type of bioengineered Tissue Apligraf -Expiration Date 07/03/18 -Product Lot Number [id number] -Percent Used 50 -Saline Lot Number [id number] -Topical Lidocaine (%) 4 5 -Bleeding Controlled with Pressure NA NA -Other no debridement amniofill intact covered with c-hydrogel -Treatment Response Procedure Procedure Procedure Tolerated Well Tolerated Well Tolerated Well #6 LEFT MEDIAL SUPERIOR LEG -Time 14:16 08:51 08:53 -Correct Patient Yes Yes Yes -Correct Side, Site, Position Yes Yes Yes -Correct Procedure Yes Yes Yes -Procedure Performed Yes Yes Yes -Type of Procedure Debridement -Clinical Debridement Subcutaneous -Post Debridement Size (cm) - Length 0.9 0.9 0 -Post Debridement Size (cm) - Width 0.9 0.9 0 -Post Debridement Size (cm) - Depth 0.2 0.2 0 -Total Square Cm 0.81 0.81 0 -Wound/Ulcer Outcome Not Healed Not Healed Healed- Epithelialized -Ulcer Cleansing Rinsed/ Rinsed/ Rinsed/ Irrigated with Irrigated with Irrigated with Saline Saline Saline -Foul Odor after Cleansing No No No -Bioengineered Tissue No No No -Topical Lidocaine (%) 4 -Injectable Lidocaine (%) 5 -Bleeding Controlled with Pressure NA NA -Other no debridement amniofill intact covered with c-hydrogel -Treatment Response Procedure Procedure Procedure Tolerated Well Tolerated Well Tolerated Well #5 RIGHT MEDIAL CALF -Time 14:17 08:51 08:53 -Correct Patient Yes Yes Yes -Correct Side, Site, Position Yes Yes Yes -Correct Procedure Yes Yes Yes -Procedure Performed Yes Yes Yes -Type of Procedure Debridement -Clinical Debridement Subcutaneous -Post Debridement Size (cm) - Length 7.0 7.0 6.7 -Post Debridement Size (cm) - Width 5.5 5.5 4.7 -Post Debridement Size (cm) - Depth 0.1 0.1 0.1 -Total Square Cm 38.50 38.50 31.49 -Wound/Ulcer Outcome Not Healed Not Healed Not Healed -Ulcer Cleansing Rinsed/ Rinsed/ Rinsed/ Irrigated with Irrigated with Irrigated with Saline Saline Saline -Foul Odor after Cleansing No No No -Bioengineered Tissue No No No -Topical Lidocaine (%) 5 -Bleeding Controlled with NA NA Pressure -Other apligrap #3 no debridement intact covered amniofill with wound veil intact covered secured with with c-hydrogel steri strips -Treatment Response Procedure Procedure Procedure Tolerated Well Tolerated Well Tolerated Well #4 Left LATERAL calf -Time 14:18 08:52 09:03 -Correct Patient Yes Yes Yes -Correct Side, Site, Position Yes Yes Yes -Correct Procedure Yes Yes Yes -Procedure Performed Yes Yes Yes -Type of Procedure Debridement Debridement -Clinical Debridement Subcutaneous Subcutaneous -Post Debridement Size (cm) - Length 1.8 1.8 1.3 -Post Debridement Size (cm) - Width 2.1 2.1 2.2 -Post Debridement Size (cm) - Depth 0.1 0.1 0.1 -Total Square Cm 3.78 3.78 2.86 -Wound/Ulcer Outcome Not Healed Not Healed Not Healed -Ulcer Cleansing Rinsed/ Rinsed/ Rinsed/ Irrigated with Irrigated with Irrigated with Saline Saline Saline -Foul Odor after Cleansing No No No -Bioengineered Tissue No No No -Topical Lidocaine (%) 5 -Injectable Lidocaine (%) 4 -Bleeding Controlled with Pressure NA Pressure -Other no debridement amniofill intact covered with c-hydrogel -Treatment Response Procedure Procedure Procedure Tolerated Well Tolerated Well Tolerated Well #3 RIGHT POSTERIOR LATERAL LE CLUSTER -Time 14:19 08:52 09:05 -Correct Patient Yes Yes Yes -Correct Side, Site, Position Yes Yes Yes -Correct Procedure Yes Yes Yes -Procedure Performed Yes Yes Yes -Type of Procedure Debridement Debridement -Clinical Debridement Subcutaneous Subcutaneous -Post Debridement Size (cm) - Length 9.5 9.5 5.2 -Post Debridement Size (cm) - Width 10.1 10.1 4.0 -Post Debridement Size (cm) - Depth 0.1 0.1 0.1 -Total Square Cm 95.95 95.95 20.80 -Wound/Ulcer Outcome Not Healed Not Healed Not Healed -Ulcer Cleansing Rinsed/ Rinsed/ Rinsed/ Irrigated with Irrigated with Irrigated with Saline Saline Saline -Foul Odor after Cleansing No No No -Bioengineered Tissue Yes No No -Type of bioengineered Tissue Apligraf -Expiration Date 07/03/18 -Product Lot Number [id number] -Percent Used 50 -Topical Lidocaine (%) 4 5 -Bleeding Controlled with Pressure NA Pressure -Other no debridement amniofill intact covered with c-hydrogel -Treatment Response Procedure Procedure Procedure Tolerated Well Tolerated Well Tolerated Well Pain Scale: 0-10 Numeric Is Patient Pain Free? Yes Yes Yes Wound debrided: posterior leg Laterality: Right Type of Debridement: Excisional debridement Anesthesia Used: 4% Lidocaine Solution Depth: in the subcutaneous layer Percentage of wound debrided: 50 Instrument Used: #15 blade Tissue Removed: fibrous, devitalized subcutaneous, biofilm, slough Severity: Fat Layer Exposed Amount of bleeding with debridement: Mild Bleeding Controlled with: Pressure Patient tolerated procedure well - Additional Wound Wound debrided: lateral Laterality: Right Type of Debridement: Excisional debridement Anesthesia Used: 4% Lidocaine Solution Depth: in the subcutaneous layer Percentage of wound debrided: 50 Instrument Used: #15 blade Tissue Removed: fibrous, devitalized subcutaneous, biofilm, slough Severity: Fat Layer Exposed Amount of bleeding with debridement: Mild Bleeding Controlled with: Pressure Patient tolerated procedure: Patient tolerated procedure well - Additional Wound Wound debrided: medial leg Laterality: Right Type of Debridement: Excisional debridement Anesthesia Used: 4% Lidocaine Solution Depth: in the subcutaneous layer Percentage of wound debrided: 50 Instrument Used: #15 blade Tissue Removed: fibrous, devitalized subcutaneous, biofilm, slough Severity: Fat Layer Exposed Amount of bleeding with debridement: Mild Bleeding Controlled with: Pressure Patient tolerated procedure: Patient tolerated procedure well - Additional Wound Wound debrided: lateral leg Laterality: Left Type of Debridement: Excisional debridement Anesthesia Used: 4% Lidocaine Solution Depth: in the subcutaneous layer Percentage of wound debrided: 100 Instrument Used: #15 blade Tissue Removed: fibrous, devitalized subcutaneous, biofilm, slough Severity: Fat Layer Exposed Amount of bleeding with debridement: Mild Bleeding Controlled with: Pressure Patient tolerated procedure: Patient tolerated procedure well Assessment/Plan Active Problems (Last Reviewed 04/14/18 @ 12:16 by Huang Alvarado MD) Calciphylaxis (Chronic) Ulcer of left lower extremity with fat layer exposed (Chronic) Ulcer of right lower extremity with fat layer exposed (Chronic) Pain in right leg (Chronic) Pain in left leg (Chronic) Assessment: Right and left leg ulcers with fat layer exposed, chronic and noninfected. Delayed healing. venous insufficiency. Malnutrition suspected. Lower extremity pain. Multiple comorbidities noted. Calciphylaxis Plan: She was evaluated today and her care plan was discussed. She underwent a recent surgical debridement in the operating room with a versa jet and advanced wound care product, amnio fill was applied. The Adaptic and Steri-Strips were moistened and removed to the ulcer sites could be evaluated. Subcutaneous excisional debridement was performed to bilateral lower extremities as noted in the clinical panel. To change the dressing every other day with Lacey; she is amendable and able to perform this on her own at home. She had a follow up with Dr. Pelaez for evaluation of her arterial Doppler exam which appeared to have distal perfusion. A biopsy of the leg skin was previously obtained and the results were reviewed today and will be placed in her chart. I reiterated the importance of taking pressure off of these wound sites. She was told by her doctor to stop taking glucerna as it had too much calcium. To only take nutritional supplementation but do not have additional calcium in them. To complete course of sodium thiosulfate for treatment of calciphylaxis as prescribed. Repeat prescription of this course will be considered after she follows up with her paper winder, Dr. Almonte, pending her updated lab results. I answered all of her questions. To return to the wound healing center 1 week or call sooner if there are any questions or concerns.
--- NOTE | 2018-07-18 09:35 | PN.PCM_ITS ---
(1) Ulcer of right lower extremity with fat layer exposed Status: Chronic Current Visit: Yes Code(s): L97.912 - Non-pressure chronic ulcer of unspecified part of right lower leg with fat layer exposed (2) Ulcer of left lower extremity with fat layer exposed Status: Chronic Current Visit: Yes Code(s): L97.922 - Non-pressure chronic ulcer of unspecified part of left lower leg with fat layer exposed (3) Calciphylaxis Status: Chronic Current Visit: Yes Code(s): E83.59 - Other disorders of calcium metabolism (4) Pain in right leg Status: Chronic Current Visit: Yes Code(s): M79.604 - Pain in right leg (5) Pain in left leg Status: Chronic Current Visit: Yes Code(s): M79.605 - Pain in left leg Type of Wound Date of Service: 07/18/18 Chief Complaint: Ulcers bilateral legs History of Wound: Di is a 72 year old female that returns for follow up of bilateral leg ulcers. She had several theraskin and Apligraf applications applied in the clinical setting. She recently had a versa jet debridement with serial amnio fill, advanced wound care product, application in the operating room this past week. She denies pain, fever, chill, nausea, vomiting. She has kept her dressing clean and intact. She denies recent illness. She will follow-up with her train system operator, Dr. Almonte, to see if additional IV thiosulfate administration is appropriate pending her updated lab work. Progress of Wound: Improving - Physical Exam Vital Signs Temp Pulse Resp BP 98.2 F 94 16 136/63 H 07/18/18 08:09 07/18/18 08:09 07/18/18 08:09 07/18/18 08:09 General: Alert, Oriented x3, Cooperative HEENT: Atraumatic Extremities: No cyanosis, Capillary Refill Less than 3 Seconds, No Calf Tenderness - Negative Kimberly and Layton sign bilateral, Diminished Peripheral Pulses, Edema Skin: Ulcer/ Wound - No purulence, erythema, streaking, odor, or infection. There is significant peripheral epithelialization versus cluster sites. The peripheral skin is atrophic and hairless. There is no eschar necrosis noted today bilateral, - - The pre-debridement measurement for the right lateral leg is 5.1 x 3.9 x 0.1 cm and 50% of this ulcer site was debrided. The pre- debridement measurements for the right medial leg is 6.6 x 4.6 x 0.1 cm and 50% of this ulcer site was debrided. The pre-debridement measurement for the right posterior leg is 9.9 x 4.6 x 0.1 cm and 50% of this ulcer site was debrided. The pre-debridement measurement for the left lateral leg was 1.2 x 2.1 x 0.1 cm and 100% of this ulcer site was debrided. Wound Measurements and Assessment WC - Nurse 1 - General Ulcer Measurement Start: 06/27/18 13:22 Freq: Status: Active Protocol: Activity Type Activity Date Activity User E-Sign Co-Sign Detail Recorded Client Recorded Date Recorded By Document 07/18/18 08:09 [id number] 07/18/18 08:19 07/18/18 08:09 Wound Center Nurse 1 [Ulcer Assessment] #7 right anterior proximal LE -Combined with other wound No -Exudate Amt Small (1-33%) -Exudate Type Serosanguineous -Wound Margin Distinct, Outline Attached #6 LEFT MEDIAL SUPERIOR LEG -Combined with other wound No -Exudate Amt Small (1-33%) -Exudate Type Serosanguineous -Wound Margin Distinct, Outline Attached #5 RIGHT MEDIAL CALF -Combined with other wound No -Exudate Amt Small (1-33%) -Exudate Type Serosanguineous -Wound Margin Distinct, Outline Attached #4 Left LATERAL calf -Combined with other wound No -Exudate Amt Small (1-33%) -Exudate Type Serosanguineous -Wound Margin Distinct, Outline Attached #3 RIGHT POSTERIOR LATERAL LE CLUSTER -Combined with other wound No -Exudate Amt Small (1-33%) -Exudate Type Serosanguineous [Edema Assessment] -Right Calf (cm) 33 -Right Ankle (cm) 22 -Left Calf (cm) 31 -Left Ankle (cm) 21 WC - Nurse 2 - General Ulcer CM Notes Start: 06/27/18 13:22 Freq: Status: Active Protocol: Activity Type Activity Date Activity User E-Sign Co-Sign Detail Recorded Client Recorded Date Recorded By Document 07/18/18 08:47 [id number] 07/18/18 09:12 07/18/18 08:47 Wound Center Nurse 2 [Procedure/Treatment] #8 RIGHT POSTERIOR CALF -Time 09:06 -Correct Patient Yes -Correct Side, Site, Position Yes -Correct Procedure Yes -Procedure Performed Yes -Type of Procedure Debridement -Clinical Debridement Subcutaneous -Post Debridement Size (cm) - Length 10.0 -Post Debridement Size (cm) - Width 4.7 -Post Debridement Size (cm) - Depth 0.1 -Total Square Cm 47.00 -Wound/Ulcer Outcome Not Healed -Ulcer Cleansing Rinsed/ Irrigated with Saline -Foul Odor after Cleansing No -Bioengineered Tissue No -Topical Lidocaine (%) 5 -Bleeding Controlled with Pressure -Treatment Response Procedure Tolerated Well #7 right anterior proximal LE -Time 08:51 -Correct Patient Yes -Correct Side, Site, Position Yes -Correct Procedure Yes -Procedure Performed Yes -Post Debridement Size (cm) - Length 0 -Post Debridement Size (cm) - Width 0 -Post Debridement Size (cm) - Depth 0 -Total Square Cm 0 -Wound/Ulcer Outcome Healed- Epithelialized -Ulcer Cleansing Rinsed/ Irrigated with Saline -Foul Odor after Cleansing No -Bioengineered Tissue No -Topical Lidocaine (%) 5 -Bleeding Controlled with NA -Treatment Response Procedure Tolerated Well #6 LEFT MEDIAL SUPERIOR LEG -Time 08:53 -Correct Patient Yes -Correct Side, Site, Position Yes -Correct Procedure Yes -Procedure Performed Yes -Post Debridement Size (cm) - Length 0 -Post Debridement Size (cm) - Width 0 -Post Debridement Size (cm) - Depth 0 -Total Square Cm 0 -Wound/Ulcer Outcome Healed- Epithelialized -Ulcer Cleansing Rinsed/ Irrigated with Saline -Foul Odor after Cleansing No -Bioengineered Tissue No -Injectable Lidocaine (%) 5 -Bleeding Controlled with NA -Treatment Response Procedure Tolerated Well #5 RIGHT MEDIAL CALF -Time 08:53 -Correct Patient Yes -Correct Side, Site, Position Yes -Correct Procedure Yes -Procedure Performed Yes -Type of Procedure Debridement -Clinical Debridement Subcutaneous -Post Debridement Size (cm) - Length 6.7 -Post Debridement Size (cm) - Width 4.7 -Post Debridement Size (cm) - Depth 0.1 -Total Square Cm 31.49 -Wound/Ulcer Outcome Not Healed -Ulcer Cleansing Rinsed/ Irrigated with Saline -Foul Odor after Cleansing No -Bioengineered Tissue No -Topical Lidocaine (%) 5 -Bleeding Controlled with Pressure -Treatment Response Procedure Tolerated Well #4 Left LATERAL calf -Time 09:03 -Correct Patient Yes -Correct Side, Site, Position Yes -Correct Procedure Yes -Procedure Performed Yes -Type of Procedure Debridement -Clinical Debridement Subcutaneous -Post Debridement Size (cm) - Length 1.3 -Post Debridement Size (cm) - Width 2.2 -Post Debridement Size (cm) - Depth 0.1 -Total Square Cm 2.86 -Wound/Ulcer Outcome Not Healed -Ulcer Cleansing Rinsed/ Irrigated with Saline -Foul Odor after Cleansing No -Bioengineered Tissue No -Topical Lidocaine (%) 5 -Bleeding Controlled with Pressure -Treatment Response Procedure Tolerated Well #3 RIGHT POSTERIOR LATERAL LE CLUSTER -Time 09:05 -Correct Patient Yes -Correct Side, Site, Position Yes -Correct Procedure Yes -Procedure Performed Yes -Type of Procedure Debridement -Clinical Debridement Subcutaneous -Post Debridement Size (cm) - Length 5.2 -Post Debridement Size (cm) - Width 4.0 -Post Debridement Size (cm) - Depth 0.1 -Total Square Cm 20.80 -Wound/Ulcer Outcome Not Healed -Ulcer Cleansing Rinsed/ Irrigated with Saline -Foul Odor after Cleansing No -Bioengineered Tissue No -Topical Lidocaine (%) 5 -Bleeding Controlled with Pressure -Treatment Response Procedure Tolerated Well [See Physician Procedure note for Specifics] Pain Scale: 0-10 Numeric [Pain] -Is Patient Pain Free? Yes Musculoskeletal: No Tenderness to Palpation of Joints or Extremities, Tenderness - Decreased tenderness with wound manipulation, - - Compartments remain soft bilateral lower extremities Neurological: Sensory exam intact to light touch and pain Psych/Mental Status: Normal Affect, Appropriate Debridement Note Post-Debridement Measurements/Treatment WC - Nurse 2 - General Ulcer CM Notes Start: 06/27/18 13:22 Freq: Status: Active Protocol: Activity Type Activity Date Activity User E-Sign Co-Sign Detail Recorded Client Recorded Date Recorded By Document 06/27/18 14:14 [id number] 06/27/18 14:21 TM Document 07/11/18 08:50 [id number] 07/11/18 08:55 TM Document 07/18/18 08:47 [id number] 07/18/18 09:12 TM 06/27/18 07/11/18 07/18/18 14:14 08:50 08:47 Wound Center Nurse 2 #8 RIGHT POSTERIOR CALF -Time 09:06 -Correct Patient Yes -Correct Side, Site, Position Yes -Correct Procedure Yes -Procedure Performed Yes -Type of Procedure Debridement -Clinical Debridement Subcutaneous -Post Debridement Size (cm) - Length 10.0 -Post Debridement Size (cm) - Width 4.7 -Post Debridement Size (cm) - Depth 0.1 -Total Square Cm 47.00 -Wound/Ulcer Outcome Not Healed -Ulcer Cleansing Rinsed/ Irrigated with Saline -Foul Odor after Cleansing No -Bioengineered Tissue No -Topical Lidocaine (%) 5 -Bleeding Controlled with Pressure -Treatment Response Procedure Tolerated Well #7 right anterior proximal LE -Time 14:15 08:51 08:51 -Correct Patient Yes Yes Yes -Correct Side, Site, Position Yes Yes Yes -Correct Procedure Yes Yes Yes -Procedure Performed Yes Yes Yes -Type of Procedure Debridement -Clinical Debridement Subcutaneous -Post Debridement Size (cm) - Length 13.1 13.1 0 -Post Debridement Size (cm) - Width 4.1 4.1 0 -Post Debridement Size (cm) - Depth 0.1 0.1 0 -Total Square Cm 53.71 53.71 0 -Wound/Ulcer Outcome Not Healed Not Healed Healed- Epithelialized -Ulcer Cleansing Rinsed/ Rinsed/ Rinsed/ Irrigated with Irrigated with Irrigated with Saline Saline Saline -Foul Odor after Cleansing No No No -Bioengineered Tissue Yes No No -Type of bioengineered Tissue Apligraf -Expiration Date 07/03/18 -Product Lot Number [id number] -Percent Used 50 -Saline Lot Number [id number] -Topical Lidocaine (%) 4 5 -Bleeding Controlled with Pressure NA NA -Other no debridement amniofill intact covered with c-hydrogel -Treatment Response Procedure Procedure Procedure Tolerated Well Tolerated Well Tolerated Well #6 LEFT MEDIAL SUPERIOR LEG -Time 14:16 08:51 08:53 -Correct Patient Yes Yes Yes -Correct Side, Site, Position Yes Yes Yes -Correct Procedure Yes Yes Yes -Procedure Performed Yes Yes Yes -Type of Procedure Debridement -Clinical Debridement Subcutaneous -Post Debridement Size (cm) - Length 0.9 0.9 0 -Post Debridement Size (cm) - Width 0.9 0.9 0 -Post Debridement Size (cm) - Depth 0.2 0.2 0 -Total Square Cm 0.81 0.81 0 -Wound/Ulcer Outcome Not Healed Not Healed Healed- Epithelialized -Ulcer Cleansing Rinsed/ Rinsed/ Rinsed/ Irrigated with Irrigated with Irrigated with Saline Saline Saline -Foul Odor after Cleansing No No No -Bioengineered Tissue No No No -Topical Lidocaine (%) 4 -Injectable Lidocaine (%) 5 -Bleeding Controlled with Pressure NA NA -Other no debridement amniofill intact covered with c-hydrogel -Treatment Response Procedure Procedure Procedure Tolerated Well Tolerated Well Tolerated Well #5 RIGHT MEDIAL CALF -Time 14:17 08:51 08:53 -Correct Patient Yes Yes Yes -Correct Side, Site, Position Yes Yes Yes -Correct Procedure Yes Yes Yes -Procedure Performed Yes Yes Yes -Type of Procedure Debridement -Clinical Debridement Subcutaneous -Post Debridement Size (cm) - Length 7.0 7.0 6.7 -Post Debridement Size (cm) - Width 5.5 5.5 4.7 -Post Debridement Size (cm) - Depth 0.1 0.1 0.1 -Total Square Cm 38.50 38.50 31.49 -Wound/Ulcer Outcome Not Healed Not Healed Not Healed -Ulcer Cleansing Rinsed/ Rinsed/ Rinsed/ Irrigated with Irrigated with Irrigated with Saline Saline Saline -Foul Odor after Cleansing No No No -Bioengineered Tissue No No No -Topical Lidocaine (%) 5 -Bleeding Controlled with NA NA Pressure -Other apligrap #3 no debridement intact covered amniofill with wound veil intact covered secured with with c-hydrogel steri strips -Treatment Response Procedure Procedure Procedure Tolerated Well Tolerated Well Tolerated Well #4 Left LATERAL calf -Time 14:18 08:52 09:03 -Correct Patient Yes Yes Yes -Correct Side, Site, Position Yes Yes Yes -Correct Procedure Yes Yes Yes -Procedure Performed Yes Yes Yes -Type of Procedure Debridement Debridement -Clinical Debridement Subcutaneous Subcutaneous -Post Debridement Size (cm) - Length 1.8 1.8 1.3 -Post Debridement Size (cm) - Width 2.1 2.1 2.2 -Post Debridement Size (cm) - Depth 0.1 0.1 0.1 -Total Square Cm 3.78 3.78 2.86 -Wound/Ulcer Outcome Not Healed Not Healed Not Healed -Ulcer Cleansing Rinsed/ Rinsed/ Rinsed/ Irrigated with Irrigated with Irrigated with Saline Saline Saline -Foul Odor after Cleansing No No No -Bioengineered Tissue No No No -Topical Lidocaine (%) 5 -Injectable Lidocaine (%) 4 -Bleeding Controlled with Pressure NA Pressure -Other no debridement amniofill intact covered with c-hydrogel -Treatment Response Procedure Procedure Procedure Tolerated Well Tolerated Well Tolerated Well #3 RIGHT POSTERIOR LATERAL LE CLUSTER -Time 14:19 08:52 09:05 -Correct Patient Yes Yes Yes -Correct Side, Site, Position Yes Yes Yes -Correct Procedure Yes Yes Yes -Procedure Performed Yes Yes Yes -Type of Procedure Debridement Debridement -Clinical Debridement Subcutaneous Subcutaneous -Post Debridement Size (cm) - Length 9.5 9.5 5.2 -Post Debridement Size (cm) - Width 10.1 10.1 4.0 -Post Debridement Size (cm) - Depth 0.1 0.1 0.1 -Total Square Cm 95.95 95.95 20.80 -Wound/Ulcer Outcome Not Healed Not Healed Not Healed -Ulcer Cleansing Rinsed/ Rinsed/ Rinsed/ Irrigated with Irrigated with Irrigated with Saline Saline Saline -Foul Odor after Cleansing No No No -Bioengineered Tissue Yes No No -Type of bioengineered Tissue Apligraf -Expiration Date 07/03/18 -Product Lot Number [id number] -Percent Used 50 -Topical Lidocaine (%) 4 5 -Bleeding Controlled with Pressure NA Pressure -Other no debridement amniofill intact covered with c-hydrogel -Treatment Response Procedure Procedure Procedure Tolerated Well Tolerated Well Tolerated Well Pain Scale: 0-10 Numeric Is Patient Pain Free? Yes Yes Yes Wound debrided: posterior leg Laterality: Right Type of Debridement: Excisional debridement Anesthesia Used: 4% Lidocaine Solution Depth: in the subcutaneous layer Percentage of wound debrided: 50 Instrument Used: #15 blade Tissue Removed: fibrous, devitalized subcutaneous, biofilm, slough Severity: Fat Layer Exposed Amount of bleeding with debridement: Mild Bleeding Controlled with: Pressure Patient tolerated procedure well - Additional Wound Wound debrided: lateral Laterality: Right Type of Debridement: Excisional debridement Anesthesia Used: 4% Lidocaine Solution Depth: in the subcutaneous layer Percentage of wound debrided: 50 Instrument Used: #15 blade Tissue Removed: fibrous, devitalized subcutaneous, biofilm, slough Severity: Fat Layer Exposed Amount of bleeding with debridement: Mild Bleeding Controlled with: Pressure Patient tolerated procedure: Patient tolerated procedure well - Additional Wound Wound debrided: medial leg Laterality: Right Type of Debridement: Excisional debridement Anesthesia Used: 4% Lidocaine Solution Depth: in the subcutaneous layer Percentage of wound debrided: 50 Instrument Used: #15 blade Tissue Removed: fibrous, devitalized subcutaneous, biofilm, slough Severity: Fat Layer Exposed Amount of bleeding with debridement: Mild Bleeding Controlled with: Pressure Patient tolerated procedure: Patient tolerated procedure well - Additional Wound Wound debrided: lateral leg Laterality: Left Type of Debridement: Excisional debridement Anesthesia Used: 4% Lidocaine Solution Depth: in the subcutaneous layer Percentage of wound debrided: 100 Instrument Used: #15 blade Tissue Removed: fibrous, devitalized subcutaneous, biofilm, slough Severity: Fat Layer Exposed Amount of bleeding with debridement: Mild Bleeding Controlled with: Pressure Patient tolerated procedure: Patient tolerated procedure well Assessment/Plan Active Problems (Last Reviewed 04/14/18 @ 12:16 by Huang Alvarado MD) Calciphylaxis (Chronic) Ulcer of left lower extremity with fat layer exposed (Chronic) Ulcer of right lower extremity with fat layer exposed (Chronic) Pain in right leg (Chronic) Pain in left leg (Chronic) Assessment: Right and left leg ulcers with fat layer exposed, chronic and noninfected. Delayed healing. venous insufficiency. Malnutrition suspected. Lower extremity pain. Multiple comorbidities noted. Calciphylaxis Plan: She was evaluated today and her care plan was discussed. She underwent a recent surgical debridement in the operating room with a versa jet and advanced wound care product, amnio fill was applied. The Adaptic and Steri- Strips were moistened and removed to the ulcer sites could be evaluated. Subcutaneous excisional debridement was performed to bilateral lower extremities as noted in the clinical panel. To change the dressing every other day with Lacey; she is amendable and able to perform this on her own at home. She had a follow up with Dr. Pelaez for evaluation of her arterial Doppler exam which appeared to have distal perfusion. A biopsy of the leg skin was previously obtained and the results were reviewed today and will be placed in her chart. I reiterated the importance of taking pressure off of these wound sites. She was told by her doctor to stop taking glucerna as it had too much calcium. To only take nutritional supplementation but do not have additional calcium in them. To complete course of sodium thiosulfate for treatment of calciphylaxis as prescribed. Repeat prescription of this course will be considered after she follows up with her train system operator, Dr. Almonte, pending her updated lab results. I answered all of her questions. To return to the wound healing center 1 week or call sooner if there are any questions or concerns.
[2018-07-25 09:45] VITALS: BP 111/60; PULSE 89; RESP 16; TEMP 36.3; BMI 35.4
--- NOTE | 2018-07-25 10:27 | PCM.WC.PN ---
(1) Ulcer of right lower extremity with fat layer exposed Status: Chronic Current Visit: Yes Code(s): L97.912 - Non-pressure chronic ulcer of unspecified part of right lower leg with fat layer exposed (2) Ulcer of left lower extremity with fat layer exposed Status: Chronic Current Visit: Yes Code(s): L97.922 - Non-pressure chronic ulcer of unspecified part of left lower leg with fat layer exposed (3) Calciphylaxis Status: Chronic Current Visit: Yes Code(s): E83.59 - Other disorders of calcium metabolism (4) Pain in right leg Status: Chronic Current Visit: Yes Code(s): M79.604 - Pain in right leg (5) Pain in left leg Status: Chronic Current Visit: Yes Code(s): M79.605 - Pain in left leg Type of Wound Date of Service: 07/25/18 Chief Complaint: Ulcers bilateral legs History of Wound: Di is a 72 year old female that returns for follow up of bilateral leg ulcers. She had several theraskin and Apligraf applications applied in the clinical setting. She recently had a versa jet debridement with serial amnio fill, advanced wound care product, application in the operating room this past week. She denies pain, fever, chill, nausea, vomiting. She has been compliant with every other day Lacey applications this past week. She denies recent illness. She did follow-up with Dr. Almonte, her material handling crew supervisor who has reviewed her recent laboratory work and discontinued her thiosulfate infusions. It is noted she is continuing on a low dose of prednisone for treatment of suspected underlying sarcoidosis. She understands steroid use may delay ulcer healing however this is seem to reduce the inflammation and necrosis process secondary to her other systemic diagnoses. Progress of Wound: Improving - Physical Exam Vital Signs Temp Pulse Resp BP 97.3 F L 89 16 111/60 07/25/18 09:45 07/25/18 09:45 07/25/18 09:45 07/25/18 09:45 General: Alert, Oriented x3, Cooperative Extremities: No cyanosis, Capillary Refill Less than 3 Seconds, No Calf Tenderness - Negative Kimberly and Layton sign bilateral, Diminished Peripheral Pulses, Edema - Decreased bilateral lower extremities Skin: Ulcer/ Wound - No purulence, erythema, streaking, odor, or acute infection maceration or necrosis. The peripheral skin is hairless and atrophic. There is peripheral epithelialization noted to all cluster sites and she is doing well. Wound Measurements and Assessment WC - Nurse 1 - General Ulcer Measurement Start: 06/27/18 13:22 Freq: Status: Active Protocol: Activity Type Activity Date Activity User E-Sign Co-Sign Detail Recorded Client Recorded Date Recorded By Document 07/25/18 09:45 [facility] [id number] 07/25/18 09:56 BM 07/25/18 09:45 Wound Center Nurse 1 [Ulcer Assessment] #8 RIGHT POSTERIOR CALF -Combined with other wound No -Current Size (cm) - Length 8.5 -Current Size (cm) - Width 4 -Current Size (cm) - Depth 0.1 -Total Square Cm 34.0 -Date of Last Picture (Recall this 07/25/18 field) -Photo Taken Yes -Tunneling No -Undermining/Tunneling No -Circular Undermining No -Exudate Amt Small (1-33%) -Exudate Type Yellow/Green -Wound Margin Distinct, Outline Attached -Granulation Amt Medium (34-66%) -Granulation Quality Red -Slough/Fibrin Yes -Necrosis Amt Medium (34-66%) -Necrotic Tissue Type Adherent Slough -Texture (Gabriella-wound Skin Appearance) Scarring -Moisture (Gabriella-wound Skin Appearance Dry/Scaly ) -Color (Gabriella-wound Skin Appearance) Hemosiderin Staining -Temperature (Gabriella-wound Skin No Abnormality Appearance) (Pt Warm) -Tenderness on Palpation (Gabriella-wound No Skin Appearance) -Ulcer Cleansing Rinsed/ Irrigated with Saline -Foul Odor after Cleansing No -Anesthetic Used 4% Lidocaine Solution #5 RIGHT MEDIAL CALF -Combined with other wound No -Current Size (cm) - Length 2.9 -Current Size (cm) - Width 2.7 -Current Size (cm) - Depth 0.1 -Total Square Cm 7.83 -Date of Last Picture (Recall this 07/25/18 field) -Photo Taken Yes -Epithelialization Small 1-33% -Tunneling No -Undermining/Tunneling No -Circular Undermining No -Exudate Amt Small (1-33%) -Exudate Type Yellow/Green -Wound Margin Distinct, Outline Attached -Granulation Amt Medium (34-66%) -Granulation Quality Red -Slough/Fibrin Yes -Necrosis Amt Medium (34-66%) -Necrotic Tissue Type Adherent Slough -Texture (Gabriella-wound Skin Appearance) Scarring -Moisture (Gabriella-wound Skin Appearance Dry/Scaly ) -Color (Gabriella-wound Skin Appearance) Hemosiderin Staining -Temperature (Gabriella-wound Skin No Abnormality Appearance) (Pt Warm) -Tenderness on Palpation (Gabriella-wound No Skin Appearance) -Ulcer Cleansing Rinsed/ Irrigated with Saline -Foul Odor after Cleansing No -Anesthetic Used 4% Lidocaine Solution #4 Left LATERAL calf -Combined with other wound No -Current Size (cm) - Length 1 -Current Size (cm) - Width 2 -Current Size (cm) - Depth 0.1 -Total Square Cm 2 -Date of Last Picture (Recall this 07/25/18 field) -Photo Taken Yes -Epithelialization Small 1-33% -Tunneling No -Undermining/Tunneling No -Circular Undermining No -Exudate Amt Small (1-33%) -Exudate Type Yellow/Green -Wound Margin Distinct, Outline Attached -Granulation Amt Medium (34-66%) -Granulation Quality Red -Slough/Fibrin Yes -Necrosis Amt Medium (34-66%) -Necrotic Tissue Type Adherent Slough -Texture (Gabriella-wound Skin Appearance) Scarring -Moisture (Gabriella-wound Skin Appearance Dry/Scaly ) -Color (Gabriella-wound Skin Appearance) Hemosiderin Staining -Temperature (Gabriella-wound Skin No Abnormality Appearance) (Pt Warm) -Tenderness on Palpation (Gabriella-wound No Skin Appearance) -Ulcer Cleansing Rinsed/ Irrigated with Saline -Foul Odor after Cleansing No -Anesthetic Used 4% Lidocaine Solution #3 RIGHT POSTERIOR LATERAL LE CLUSTER -Combined with other wound No -Current Size (cm) - Length 1.8 -Current Size (cm) - Width 6 -Current Size (cm) - Depth 0.1 -Total Square Cm 10.8 -Date of Last Picture (Recall this 07/25/18 field) -Photo Taken Yes -Epithelialization Small 1-33% -Tunneling No -Undermining/Tunneling No -Circular Undermining No -Exudate Amt Small (1-33%) -Exudate Type Yellow/Green -Wound Margin Distinct, Outline Attached -Granulation Amt Medium (34-66%) -Granulation Quality Red -Slough/Fibrin Yes -Necrosis Amt Medium (34-66%) -Necrotic Tissue Type Adherent Slough -Texture (Gabriella-wound Skin Appearance) Scarring -Moisture (Gabriella-wound Skin Appearance Dry/Scaly ) -Color (Gabriella-wound Skin Appearance) Hemosiderin Staining -Temperature (Gabriella-wound Skin No Abnormality Appearance) (Pt Warm) -Tenderness on Palpation (Gabriella-wound No Skin Appearance) -Ulcer Cleansing Rinsed/ Irrigated with Saline -Foul Odor after Cleansing No -Anesthetic Used 4% Lidocaine Solution [Edema Assessment] -Lower Limb Edema Present Yes -Right Calf (cm) 33 -Right Ankle (cm) 21 -Left Calf (cm) 31.7 -Left Ankle (cm) 21 WC - Nurse 2 - General Ulcer CM Notes Start: 06/27/18 13:22 Freq: Status: Active Protocol: Activity Type Activity Date Activity User E-Sign Co-Sign Detail Recorded Client Recorded Date Recorded By Document 07/25/18 10:08 [id number] 07/25/18 10:12 07/25/18 10:08 Wound Center Nurse 2 [Procedure/Treatment] #8 RIGHT POSTERIOR CALF -Time 10:08 -Correct Patient Yes -Correct Side, Site, Position Yes -Correct Procedure Yes -Procedure Performed Yes -Type of Procedure Debridement -Clinical Debridement Subcutaneous -Post Debridement Size (cm) - Length 8.6 -Post Debridement Size (cm) - Width 4.0 -Post Debridement Size (cm) - Depth 0.1 -Total Square Cm 34.40 -Wound/Ulcer Outcome Not Healed -Ulcer Cleansing Rinsed/ Irrigated with Saline -Foul Odor after Cleansing No -Bioengineered Tissue No -Topical Lidocaine (%) 4 -Bleeding Controlled with Pressure -Treatment Response Procedure Tolerated Well #5 RIGHT MEDIAL CALF -Time 10:09 -Correct Patient Yes -Correct Side, Site, Position Yes -Correct Procedure Yes -Procedure Performed Yes -Type of Procedure Debridement -Clinical Debridement Subcutaneous -Post Debridement Size (cm) - Length 3.0 -Post Debridement Size (cm) - Width 2.8 -Post Debridement Size (cm) - Depth 0.1 -Total Square Cm 8.40 -Wound/Ulcer Outcome Not Healed -Ulcer Cleansing Rinsed/ Irrigated with Saline -Foul Odor after Cleansing No -Bioengineered Tissue No -Topical Lidocaine (%) 4 -Bleeding Controlled with Pressure -Treatment Response Procedure Tolerated Well #4 Left LATERAL calf -Time 10:09 -Correct Patient Yes -Correct Side, Site, Position Yes -Correct Procedure Yes -Procedure Performed Yes -Type of Procedure Debridement -Clinical Debridement Subcutaneous -Post Debridement Size (cm) - Length 1.1 -Post Debridement Size (cm) - Width 2.1 -Post Debridement Size (cm) - Depth 0.1 -Total Square Cm 2.31 -Wound/Ulcer Outcome Not Healed -Ulcer Cleansing Rinsed/ Irrigated with Saline -Foul Odor after Cleansing No -Bioengineered Tissue No -Topical Lidocaine (%) 4 -Bleeding Controlled with Pressure -Treatment Response Procedure Tolerated Well #3 RIGHT POSTERIOR LATERAL LE CLUSTER -Time 10:09 -Correct Patient Yes -Correct Side, Site, Position Yes -Correct Procedure Yes -Procedure Performed Yes -Type of Procedure Debridement -Clinical Debridement Subcutaneous -Post Debridement Size (cm) - Length 1.9 -Post Debridement Size (cm) - Width 6.1 -Post Debridement Size (cm) - Depth 0.1 -Total Square Cm 11.59 -Wound/Ulcer Outcome Not Healed -Ulcer Cleansing Rinsed/ Irrigated with Saline -Foul Odor after Cleansing No -Bioengineered Tissue No -Topical Lidocaine (%) 4 -Bleeding Controlled with Pressure -Treatment Response Procedure Tolerated Well [See Physician Procedure note for Specifics] Pain Scale: 0-10 Numeric [Pain] -Is Patient Pain Free? Yes Musculoskeletal: No Tenderness to Palpation of Joints or Extremities, Muscle Wasting, - - Compartments remain soft to palpate bilateral lower extremities Neurological: Sensory exam intact to light touch and pain Psych/Mental Status: Normal Affect, Appropriate Debridement Note Post-Debridement Measurements/Treatment WC - Nurse 2 - General Ulcer CM Notes Start: 06/27/18 13:22 Freq: Status: Active Protocol: Activity Type Activity Date Activity User E-Sign Co-Sign Detail Recorded Client Recorded Date Recorded By Document 06/27/18 14:14 TM [id number] 06/27/18 14:21 TM Document 07/11/18 08:50 TM [id number] 07/11/18 08:55 TM Document 07/18/18 08:47 TM [id number] 07/18/18 09:12 TM Document 07/25/18 10:08 TM [id number] 07/25/18 10:12 TM 06/27/18 07/11/18 07/18/18 14:14 08:50 08:47 Wound Center Nurse 2 #8 RIGHT POSTERIOR CALF -Time 09:06 -Correct Patient Yes -Correct Side, Site, Position Yes -Correct Procedure Yes -Procedure Performed Yes -Type of Procedure Debridement -Clinical Debridement Subcutaneous -Post Debridement Size (cm) - Length 10.0 -Post Debridement Size (cm) - Width 4.7 -Post Debridement Size (cm) - Depth 0.1 -Total Square Cm 47.00 -Wound/Ulcer Outcome Not Healed -Ulcer Cleansing Rinsed/ Irrigated with Saline -Foul Odor after Cleansing No -Bioengineered Tissue No -Topical Lidocaine (%) 5 -Bleeding Controlled with Pressure -Treatment Response Procedure Tolerated Well #7 right anterior proximal LE -Time 14:15 08:51 08:51 -Correct Patient Yes Yes Yes -Correct Side, Site, Position Yes Yes Yes -Correct Procedure Yes Yes Yes -Procedure Performed Yes Yes Yes -Type of Procedure Debridement -Clinical Debridement Subcutaneous -Post Debridement Size (cm) - Length 13.1 13.1 0 -Post Debridement Size (cm) - Width 4.1 4.1 0 -Post Debridement Size (cm) - Depth 0.1 0.1 0 -Total Square Cm 53.71 53.71 0 -Wound/Ulcer Outcome Not Healed Not Healed Healed- Epithelialized -Ulcer Cleansing Rinsed/ Rinsed/ Rinsed/ Irrigated with Irrigated with Irrigated with Saline Saline Saline -Foul Odor after Cleansing No No No -Bioengineered Tissue Yes No No -Type of bioengineered Tissue Apligraf -Expiration Date 07/03/18 -Product Lot Number [id number] -Percent Used 50 -Saline Lot Number [id number] -Topical Lidocaine (%) 4 5 -Bleeding Controlled with Pressure NA NA -Other no debridement amniofill intact covered with c-hydrogel -Treatment Response Procedure Procedure Procedure Tolerated Well Tolerated Well Tolerated Well #6 LEFT MEDIAL SUPERIOR LEG -Time 14:16 08:51 08:53 -Correct Patient Yes Yes Yes -Correct Side, Site, Position Yes Yes Yes -Correct Procedure Yes Yes Yes -Procedure Performed Yes Yes Yes -Type of Procedure Debridement -Clinical Debridement Subcutaneous -Post Debridement Size (cm) - Length 0.9 0.9 0 -Post Debridement Size (cm) - Width 0.9 0.9 0 -Post Debridement Size (cm) - Depth 0.2 0.2 0 -Total Square Cm 0.81 0.81 0 -Wound/Ulcer Outcome Not Healed Not Healed Healed- Epithelialized -Ulcer Cleansing Rinsed/ Rinsed/ Rinsed/ Irrigated with Irrigated with Irrigated with Saline Saline Saline -Foul Odor after Cleansing No No No -Bioengineered Tissue No No No -Topical Lidocaine (%) 4 -Injectable Lidocaine (%) 5 -Bleeding Controlled with Pressure NA NA -Other no debridement amniofill intact covered with c-hydrogel -Treatment Response Procedure Procedure Procedure Tolerated Well Tolerated Well Tolerated Well #5 RIGHT MEDIAL CALF -Time 14:17 08:51 08:53 -Correct Patient Yes Yes Yes -Correct Side, Site, Position Yes Yes Yes -Correct Procedure Yes Yes Yes -Procedure Performed Yes Yes Yes -Type of Procedure Debridement -Clinical Debridement Subcutaneous -Post Debridement Size (cm) - Length 7.0 7.0 6.7 -Post Debridement Size (cm) - Width 5.5 5.5 4.7 -Post Debridement Size (cm) - Depth 0.1 0.1 0.1 -Total Square Cm 38.50 38.50 31.49 -Wound/Ulcer Outcome Not Healed Not Healed Not Healed -Ulcer Cleansing Rinsed/ Rinsed/ Rinsed/ Irrigated with Irrigated with Irrigated with Saline Saline Saline -Foul Odor after Cleansing No No No -Bioengineered Tissue No No No -Topical Lidocaine (%) 5 -Bleeding Controlled with NA NA Pressure -Other apligrap #3 no debridement intact covered amniofill with wound veil intact covered secured with with c-hydrogel steri strips -Treatment Response Procedure Procedure Procedure Tolerated Well Tolerated Well Tolerated Well #4 Left LATERAL calf -Time 14:18 08:52 09:03 -Correct Patient Yes Yes Yes -Correct Side, Site, Position Yes Yes Yes -Correct Procedure Yes Yes Yes -Procedure Performed Yes Yes Yes -Type of Procedure Debridement Debridement -Clinical Debridement Subcutaneous Subcutaneous -Post Debridement Size (cm) - Length 1.8 1.8 1.3 -Post Debridement Size (cm) - Width 2.1 2.1 2.2 -Post Debridement Size (cm) - Depth 0.1 0.1 0.1 -Total Square Cm 3.78 3.78 2.86 -Wound/Ulcer Outcome Not Healed Not Healed Not Healed -Ulcer Cleansing Rinsed/ Rinsed/ Rinsed/ Irrigated with Irrigated with Irrigated with Saline Saline Saline -Foul Odor after Cleansing No No No -Bioengineered Tissue No No No -Topical Lidocaine (%) 5 -Injectable Lidocaine (%) 4 -Bleeding Controlled with Pressure NA Pressure -Other no debridement amniofill intact covered with c-hydrogel -Treatment Response Procedure Procedure Procedure Tolerated Well Tolerated Well Tolerated Well #3 RIGHT POSTERIOR LATERAL LE CLUSTER -Time 14:19 08:52 09:05 -Correct Patient Yes Yes Yes -Correct Side, Site, Position Yes Yes Yes -Correct Procedure Yes Yes Yes -Procedure Performed Yes Yes Yes -Type of Procedure Debridement Debridement -Clinical Debridement Subcutaneous Subcutaneous -Post Debridement Size (cm) - Length 9.5 9.5 5.2 -Post Debridement Size (cm) - Width 10.1 10.1 4.0 -Post Debridement Size (cm) - Depth 0.1 0.1 0.1 -Total Square Cm 95.95 95.95 20.80 -Wound/Ulcer Outcome Not Healed Not Healed Not Healed -Ulcer Cleansing Rinsed/ Rinsed/ Rinsed/ Irrigated with Irrigated with Irrigated with Saline Saline Saline -Foul Odor after Cleansing No No No -Bioengineered Tissue Yes No No -Type of bioengineered Tissue Apligraf -Expiration Date 07/03/18 -Product Lot Number [id number] -Percent Used 50 -Topical Lidocaine (%) 4 5 -Bleeding Controlled with Pressure NA Pressure -Other no debridement amniofill intact covered with c-hydrogel -Treatment Response Procedure Procedure Procedure Tolerated Well Tolerated Well Tolerated Well Pain Scale: 0-10 Numeric Is Patient Pain Free? Yes Yes Yes 07/25/18 10:08 Wound Center Nurse 2 #8 RIGHT POSTERIOR CALF -Time 10:08 -Correct Patient Yes -Correct Side, Site, Position Yes -Correct Procedure Yes -Procedure Performed Yes -Type of Procedure Debridement -Clinical Debridement Subcutaneous -Post Debridement Size (cm) - Length 8.6 -Post Debridement Size (cm) - Width 4.0 -Post Debridement Size (cm) - Depth 0.1 -Total Square Cm 34.40 -Wound/Ulcer Outcome Not Healed -Ulcer Cleansing Rinsed/ Irrigated with Saline -Foul Odor after Cleansing No -Bioengineered Tissue No -Topical Lidocaine (%) 4 -Bleeding Controlled with Pressure -Treatment Response Procedure Tolerated Well #7 right anterior proximal LE -Time -Correct Patient -Correct Side, Site, Position -Correct Procedure -Procedure Performed -Type of Procedure -Clinical Debridement -Post Debridement Size (cm) - Length -Post Debridement Size (cm) - Width -Post Debridement Size (cm) - Depth -Total Square Cm -Wound/Ulcer Outcome -Ulcer Cleansing -Foul Odor after Cleansing -Bioengineered Tissue -Type of bioengineered Tissue -Expiration Date -Product Lot Number -Percent Used -Saline Lot Number -Topical Lidocaine (%) -Bleeding Controlled with -Other -Treatment Response #6 LEFT MEDIAL SUPERIOR LEG -Time -Correct Patient -Correct Side, Site, Position -Correct Procedure -Procedure Performed -Type of Procedure -Clinical Debridement -Post Debridement Size (cm) - Length -Post Debridement Size (cm) - Width -Post Debridement Size (cm) - Depth -Total Square Cm -Wound/Ulcer Outcome -Ulcer Cleansing -Foul Odor after Cleansing -Bioengineered Tissue -Topical Lidocaine (%) -Injectable Lidocaine (%) -Bleeding Controlled with -Other -Treatment Response #5 RIGHT MEDIAL CALF -Time 10:09 -Correct Patient Yes -Correct Side, Site, Position Yes -Correct Procedure Yes -Procedure Performed Yes -Type of Procedure Debridement -Clinical Debridement Subcutaneous -Post Debridement Size (cm) - Length 3.0 -Post Debridement Size (cm) - Width 2.8 -Post Debridement Size (cm) - Depth 0.1 -Total Square Cm 8.40 -Wound/Ulcer Outcome Not Healed -Ulcer Cleansing Rinsed/ Irrigated with Saline -Foul Odor after Cleansing No -Bioengineered Tissue No -Topical Lidocaine (%) 4 -Bleeding Controlled with Pressure -Other -Treatment Response Procedure Tolerated Well #4 Left LATERAL calf -Time 10:09 -Correct Patient Yes -Correct Side, Site, Position Yes -Correct Procedure Yes -Procedure Performed Yes -Type of Procedure Debridement -Clinical Debridement Subcutaneous -Post Debridement Size (cm) - Length 1.1 -Post Debridement Size (cm) - Width 2.1 -Post Debridement Size (cm) - Depth 0.1 -Total Square Cm 2.31 -Wound/Ulcer Outcome Not Healed -Ulcer Cleansing Rinsed/ Irrigated with Saline -Foul Odor after Cleansing No -Bioengineered Tissue No -Topical Lidocaine (%) 4 -Injectable Lidocaine (%) -Bleeding Controlled with Pressure -Other -Treatment Response Procedure Tolerated Well #3 RIGHT POSTERIOR LATERAL LE CLUSTER -Time 10:09 -Correct Patient Yes -Correct Side, Site, Position Yes -Correct Procedure Yes -Procedure Performed Yes -Type of Procedure Debridement -Clinical Debridement Subcutaneous -Post Debridement Size (cm) - Length 1.9 -Post Debridement Size (cm) - Width 6.1 -Post Debridement Size (cm) - Depth 0.1 -Total Square Cm 11.59 -Wound/Ulcer Outcome Not Healed -Ulcer Cleansing Rinsed/ Irrigated with Saline -Foul Odor after Cleansing No -Bioengineered Tissue No -Type of bioengineered Tissue -Expiration Date -Product Lot Number -Percent Used -Topical Lidocaine (%) 4 -Bleeding Controlled with Pressure -Other -Treatment Response Procedure Tolerated Well Pain Scale: 0-10 Numeric Is Patient Pain Free? Yes Wound debrided: medial leg Laterality: Right Type of Debridement: Excisional debridement Anesthesia Used: 4% Lidocaine Solution Depth: in the subcutaneous layer Percentage of wound debrided: 50 Instrument Used: #15 blade Tissue Removed: fibrous, devitalized subcutaneous, biofilm, slough Severity: Fat Layer Exposed Amount of bleeding with debridement: Mild Bleeding Controlled with: Pressure Patient tolerated procedure well - Additional Wound Wound debrided: lateral leg Laterality: Right Type of Debridement: Excisional debridement Anesthesia Used: 4% Lidocaine Solution Depth: in the subcutaneous layer Percentage of wound debrided: 50 Instrument Used: #15 blade Tissue Removed: fibrous, devitalized subcutaneous, biofilm, slough Severity: Fat Layer Exposed Amount of bleeding with debridement: Mild Bleeding Controlled with: Pressure Patient tolerated procedure: Patient tolerated procedure well - Additional Wound Wound debrided: posterior leg Laterality: Right Type of Debridement: Excisional debridement Anesthesia Used: 4% Lidocaine Solution Depth: in the subcutaneous layer Percentage of wound debrided: 50 Instrument Used: #15 blade Tissue Removed: fibrous, devitalized subcutaneous, biofilm, slough Severity: Fat Layer Exposed Amount of bleeding with debridement: Mild Bleeding Controlled with: Pressure Patient tolerated procedure: Patient tolerated procedure well - Additional Wound Wound debrided: lateral leg Laterality: Left Type of Debridement: Excisional debridement Anesthesia Used: 4% Lidocaine Solution Depth: in the subcutaneous layer Percentage of wound debrided: 100 Instrument Used: #15 blade Tissue Removed: fibrous, devitalized subcutaneous, biofilm, slough Severity: Fat Layer Exposed Amount of bleeding with debridement: Mild Bleeding Controlled with: Pressure Patient tolerated procedure: Patient tolerated procedure well Assessment/Plan Active Problems (Last Reviewed 04/14/18 @ 12:16 by Huang Alvarado MD) Calciphylaxis (Chronic) Ulcer of left lower extremity with fat layer exposed (Chronic) Ulcer of right lower extremity with fat layer exposed (Chronic) Pain in right leg (Chronic) Pain in left leg (Chronic) Assessment: Right and left leg ulcers with fat layer exposed, chronic and noninfected. Delayed healing. venous insufficiency. Malnutrition suspected. Lower extremity pain. Multiple comorbidities noted. Calciphylaxis Plan: She was evaluated today and her care plan was discussed. She underwent a recent surgical debridement in the operating room with a versa jet and advanced wound care product, amnio fill was applied. To continue every other day dressing changes with Lacey. Subcutaneous excisional debridement was performed to bilateral lower extremities as noted in the clinical panel. She has been approved for 1 additional advanced wound care product, Apligraf, in the clinical setting. This will be ordered and applied next week. She had a follow up with Dr. Pelaez for evaluation of her arterial Doppler exam which appeared to have distal perfusion. A biopsy of the leg skin was previously obtained and the results were reviewed today and will be placed in her chart. I reiterated the importance of taking pressure off of these wound sites. She was told by her doctor to stop taking glucerna as it had too much calcium. To only take nutritional supplementation but do not have additional calcium in them. He has completed a course of sodium thiosulfate for treatment of calciphylaxis as prescribed. This will be stopped for duration of 2 months. She will continue on a low-dose prednisone and further calciphylaxis for sarcoidosis workup with her material handling crew supervisor, Dr. Almonte. It is also noted she is going to schedule for a lung biopsy for workup of sarcoidosis nodule versus other mass growth after September. I answered all of her questions. To return to the wound healing center 1 week or call sooner if there are any questions or concerns.
--- NOTE | 2018-07-25 10:32 | PN.PCM_ITS ---
(1) Ulcer of right lower extremity with fat layer exposed Status: Chronic Current Visit: Yes Code(s): L97.912 - Non-pressure chronic ulcer of unspecified part of right lower leg with fat layer exposed (2) Ulcer of left lower extremity with fat layer exposed Status: Chronic Current Visit: Yes Code(s): L97.922 - Non-pressure chronic ulcer of unspecified part of left lower leg with fat layer exposed (3) Calciphylaxis Status: Chronic Current Visit: Yes Code(s): E83.59 - Other disorders of calcium metabolism (4) Pain in right leg Status: Chronic Current Visit: Yes Code(s): M79.604 - Pain in right leg (5) Pain in left leg Status: Chronic Current Visit: Yes Code(s): M79.605 - Pain in left leg Type of Wound Date of Service: 07/25/18 Chief Complaint: Ulcers bilateral legs History of Wound: Di is a 72 year old female that returns for follow up of bilateral leg ulcers. She had several theraskin and Apligraf applications applied in the clinical setting. She recently had a versa jet debridement with serial amnio fill, advanced wound care product, application in the operating room this past week. She denies pain, fever, chill, nausea, vomiting. She has been compliant with every other day Lacey applications this past week. She denies recent illness. She did follow-up with Dr. Almonte, her merchandise flow associate who has reviewed her recent laboratory work and discontinued her thiosulfate infusions. It is noted she is continuing on a low dose of prednisone for treatment of suspected underlying sarcoidosis. She understands steroid use may delay ulcer healing however this is seem to reduce the inflammation and necrosis process secondary to her other systemic diagnoses. Progress of Wound: Improving - Physical Exam Vital Signs Temp Pulse Resp BP 97.3 F L 89 16 111/60 07/25/18 09:45 07/25/18 09:45 07/25/18 09:45 07/25/18 09:45 General: Alert, Oriented x3, Cooperative Extremities: No cyanosis, Capillary Refill Less than 3 Seconds, No Calf Tenderness - Negative Kimberly and Layton sign bilateral, Diminished Peripheral Pulses, Edema - Decreased bilateral lower extremities Skin: Ulcer/ Wound - No purulence, erythema, streaking, odor, or acute infection maceration or necrosis. The peripheral skin is hairless and atrophic. There is peripheral epithelialization noted to all cluster sites and she is doing well. Wound Measurements and Assessment WC - Nurse 1 - General Ulcer Measurement Start: 06/27/18 13:22 Freq: Status: Active Protocol: Activity Type Activity Date Activity User E-Sign Co-Sign Detail Recorded Client Recorded Date Recorded By Document 07/25/18 09:45 [facility] [id number] 07/25/18 09:56 BM 07/25/18 09:45 Wound Center Nurse 1 [Ulcer Assessment] #8 RIGHT POSTERIOR CALF -Combined with other wound No -Current Size (cm) - Length 8.5 -Current Size (cm) - Width 4 -Current Size (cm) - Depth 0.1 -Total Square Cm 34.0 -Date of Last Picture (Recall this 07/25/18 field) -Photo Taken Yes -Tunneling No -Undermining/Tunneling No -Circular Undermining No -Exudate Amt Small (1-33%) -Exudate Type Yellow/Green -Wound Margin Distinct, Outline Attached -Granulation Amt Medium (34-66%) -Granulation Quality Red -Slough/Fibrin Yes -Necrosis Amt Medium (34-66%) -Necrotic Tissue Type Adherent Slough -Texture (Gabriella-wound Skin Appearance) Scarring -Moisture (Gabriella-wound Skin Appearance Dry/Scaly ) -Color (Gabriella-wound Skin Appearance) Hemosiderin Staining -Temperature (Gabriella-wound Skin No Abnormality Appearance) (Pt Warm) -Tenderness on Palpation (Gabriella-wound No Skin Appearance) -Ulcer Cleansing Rinsed/ Irrigated with Saline -Foul Odor after Cleansing No -Anesthetic Used 4% Lidocaine Solution #5 RIGHT MEDIAL CALF -Combined with other wound No -Current Size (cm) - Length 2.9 -Current Size (cm) - Width 2.7 -Current Size (cm) - Depth 0.1 -Total Square Cm 7.83 -Date of Last Picture (Recall this 07/25/18 field) -Photo Taken Yes -Epithelialization Small 1-33% -Tunneling No -Undermining/Tunneling No -Circular Undermining No -Exudate Amt Small (1-33%) -Exudate Type Yellow/Green -Wound Margin Distinct, Outline Attached -Granulation Amt Medium (34-66%) -Granulation Quality Red -Slough/Fibrin Yes -Necrosis Amt Medium (34-66%) -Necrotic Tissue Type Adherent Slough -Texture (Gabriella-wound Skin Appearance) Scarring -Moisture (Gabriella-wound Skin Appearance Dry/Scaly ) -Color (Gabriella-wound Skin Appearance) Hemosiderin Staining -Temperature (Gabriella-wound Skin No Abnormality Appearance) (Pt Warm) -Tenderness on Palpation (Gabriella-wound No Skin Appearance) -Ulcer Cleansing Rinsed/ Irrigated with Saline -Foul Odor after Cleansing No -Anesthetic Used 4% Lidocaine Solution #4 Left LATERAL calf -Combined with other wound No -Current Size (cm) - Length 1 -Current Size (cm) - Width 2 -Current Size (cm) - Depth 0.1 -Total Square Cm 2 -Date of Last Picture (Recall this 07/25/18 field) -Photo Taken Yes -Epithelialization Small 1-33% -Tunneling No -Undermining/Tunneling No -Circular Undermining No -Exudate Amt Small (1-33%) -Exudate Type Yellow/Green -Wound Margin Distinct, Outline Attached -Granulation Amt Medium (34-66%) -Granulation Quality Red -Slough/Fibrin Yes -Necrosis Amt Medium (34-66%) -Necrotic Tissue Type Adherent Slough -Texture (Gabriella-wound Skin Appearance) Scarring -Moisture (Gabriella-wound Skin Appearance Dry/Scaly ) -Color (Gabriella-wound Skin Appearance) Hemosiderin Staining -Temperature (Gabriella-wound Skin No Abnormality Appearance) (Pt Warm) -Tenderness on Palpation (Gabriella-wound No Skin Appearance) -Ulcer Cleansing Rinsed/ Irrigated with Saline -Foul Odor after Cleansing No -Anesthetic Used 4% Lidocaine Solution #3 RIGHT POSTERIOR LATERAL LE CLUSTER -Combined with other wound No -Current Size (cm) - Length 1.8 -Current Size (cm) - Width 6 -Current Size (cm) - Depth 0.1 -Total Square Cm 10.8 -Date of Last Picture (Recall this 07/25/18 field) -Photo Taken Yes -Epithelialization Small 1-33% -Tunneling No -Undermining/Tunneling No -Circular Undermining No -Exudate Amt Small (1-33%) -Exudate Type Yellow/Green -Wound Margin Distinct, Outline Attached -Granulation Amt Medium (34-66%) -Granulation Quality Red -Slough/Fibrin Yes -Necrosis Amt Medium (34-66%) -Necrotic Tissue Type Adherent Slough -Texture (Gabriella-wound Skin Appearance) Scarring -Moisture (Gabriella-wound Skin Appearance Dry/Scaly ) -Color (Gabriella-wound Skin Appearance) Hemosiderin Staining -Temperature (Gabriella-wound Skin No Abnormality Appearance) (Pt Warm) -Tenderness on Palpation (Gabriella-wound No Skin Appearance) -Ulcer Cleansing Rinsed/ Irrigated with Saline -Foul Odor after Cleansing No -Anesthetic Used 4% Lidocaine Solution [Edema Assessment] -Lower Limb Edema Present Yes -Right Calf (cm) 33 -Right Ankle (cm) 21 -Left Calf (cm) 31.7 -Left Ankle (cm) 21 WC - Nurse 2 - General Ulcer CM Notes Start: 06/27/18 13:22 Freq: Status: Active Protocol: Activity Type Activity Date Activity User E-Sign Co-Sign Detail Recorded Client Recorded Date Recorded By Document 07/25/18 10:08 [id number] 07/25/18 10:12 07/25/18 10:08 Wound Center Nurse 2 [Procedure/Treatment] #8 RIGHT POSTERIOR CALF -Time 10:08 -Correct Patient Yes -Correct Side, Site, Position Yes -Correct Procedure Yes -Procedure Performed Yes -Type of Procedure Debridement -Clinical Debridement Subcutaneous -Post Debridement Size (cm) - Length 8.6 -Post Debridement Size (cm) - Width 4.0 -Post Debridement Size (cm) - Depth 0.1 -Total Square Cm 34.40 -Wound/Ulcer Outcome Not Healed -Ulcer Cleansing Rinsed/ Irrigated with Saline -Foul Odor after Cleansing No -Bioengineered Tissue No -Topical Lidocaine (%) 4 -Bleeding Controlled with Pressure -Treatment Response Procedure Tolerated Well #5 RIGHT MEDIAL CALF -Time 10:09 -Correct Patient Yes -Correct Side, Site, Position Yes -Correct Procedure Yes -Procedure Performed Yes -Type of Procedure Debridement -Clinical Debridement Subcutaneous -Post Debridement Size (cm) - Length 3.0 -Post Debridement Size (cm) - Width 2.8 -Post Debridement Size (cm) - Depth 0.1 -Total Square Cm 8.40 -Wound/Ulcer Outcome Not Healed -Ulcer Cleansing Rinsed/ Irrigated with Saline -Foul Odor after Cleansing No -Bioengineered Tissue No -Topical Lidocaine (%) 4 -Bleeding Controlled with Pressure -Treatment Response Procedure Tolerated Well #4 Left LATERAL calf -Time 10:09 -Correct Patient Yes -Correct Side, Site, Position Yes -Correct Procedure Yes -Procedure Performed Yes -Type of Procedure Debridement -Clinical Debridement Subcutaneous -Post Debridement Size (cm) - Length 1.1 -Post Debridement Size (cm) - Width 2.1 -Post Debridement Size (cm) - Depth 0.1 -Total Square Cm 2.31 -Wound/Ulcer Outcome Not Healed -Ulcer Cleansing Rinsed/ Irrigated with Saline -Foul Odor after Cleansing No -Bioengineered Tissue No -Topical Lidocaine (%) 4 -Bleeding Controlled with Pressure -Treatment Response Procedure Tolerated Well #3 RIGHT POSTERIOR LATERAL LE CLUSTER -Time 10:09 -Correct Patient Yes -Correct Side, Site, Position Yes -Correct Procedure Yes -Procedure Performed Yes -Type of Procedure Debridement -Clinical Debridement Subcutaneous -Post Debridement Size (cm) - Length 1.9 -Post Debridement Size (cm) - Width 6.1 -Post Debridement Size (cm) - Depth 0.1 -Total Square Cm 11.59 -Wound/Ulcer Outcome Not Healed -Ulcer Cleansing Rinsed/ Irrigated with Saline -Foul Odor after Cleansing No -Bioengineered Tissue No -Topical Lidocaine (%) 4 -Bleeding Controlled with Pressure -Treatment Response Procedure Tolerated Well [See Physician Procedure note for Specifics] Pain Scale: 0-10 Numeric [Pain] -Is Patient Pain Free? Yes Musculoskeletal: No Tenderness to Palpation of Joints or Extremities, Muscle Wasting, - - Compartments remain soft to palpate bilateral lower extremities Neurological: Sensory exam intact to light touch and pain Psych/Mental Status: Normal Affect, Appropriate Debridement Note Post-Debridement Measurements/Treatment WC - Nurse 2 - General Ulcer CM Notes Start: 06/27/18 13:22 Freq: Status: Active Protocol: Activity Type Activity Date Activity User E-Sign Co-Sign Detail Recorded Client Recorded Date Recorded By Document 06/27/18 14:14 TM [id number] 06/27/18 14:21 TM Document 07/11/18 08:50 TM [id number] 07/11/18 08:55 TM Document 07/18/18 08:47 TM [id number] 07/18/18 09:12 TM Document 07/25/18 10:08 TM [id number] 07/25/18 10:12 TM 06/27/18 07/11/18 07/18/18 14:14 08:50 08:47 Wound Center Nurse 2 #8 RIGHT POSTERIOR CALF -Time 09:06 -Correct Patient Yes -Correct Side, Site, Position Yes -Correct Procedure Yes -Procedure Performed Yes -Type of Procedure Debridement -Clinical Debridement Subcutaneous -Post Debridement Size (cm) - Length 10.0 -Post Debridement Size (cm) - Width 4.7 -Post Debridement Size (cm) - Depth 0.1 -Total Square Cm 47.00 -Wound/Ulcer Outcome Not Healed -Ulcer Cleansing Rinsed/ Irrigated with Saline -Foul Odor after Cleansing No -Bioengineered Tissue No -Topical Lidocaine (%) 5 -Bleeding Controlled with Pressure -Treatment Response Procedure Tolerated Well #7 right anterior proximal LE -Time 14:15 08:51 08:51 -Correct Patient Yes Yes Yes -Correct Side, Site, Position Yes Yes Yes -Correct Procedure Yes Yes Yes -Procedure Performed Yes Yes Yes -Type of Procedure Debridement -Clinical Debridement Subcutaneous -Post Debridement Size (cm) - Length 13.1 13.1 0 -Post Debridement Size (cm) - Width 4.1 4.1 0 -Post Debridement Size (cm) - Depth 0.1 0.1 0 -Total Square Cm 53.71 53.71 0 -Wound/Ulcer Outcome Not Healed Not Healed Healed- Epithelialized -Ulcer Cleansing Rinsed/ Rinsed/ Rinsed/ Irrigated with Irrigated with Irrigated with Saline Saline Saline -Foul Odor after Cleansing No No No -Bioengineered Tissue Yes No No -Type of bioengineered Tissue Apligraf -Expiration Date 07/03/18 -Product Lot Number [id number] -Percent Used 50 -Saline Lot Number [id number] -Topical Lidocaine (%) 4 5 -Bleeding Controlled with Pressure NA NA -Other no debridement amniofill intact covered with c-hydrogel -Treatment Response Procedure Procedure Procedure Tolerated Well Tolerated Well Tolerated Well #6 LEFT MEDIAL SUPERIOR LEG -Time 14:16 08:51 08:53 -Correct Patient Yes Yes Yes -Correct Side, Site, Position Yes Yes Yes -Correct Procedure Yes Yes Yes -Procedure Performed Yes Yes Yes -Type of Procedure Debridement -Clinical Debridement Subcutaneous -Post Debridement Size (cm) - Length 0.9 0.9 0 -Post Debridement Size (cm) - Width 0.9 0.9 0 -Post Debridement Size (cm) - Depth 0.2 0.2 0 -Total Square Cm 0.81 0.81 0 -Wound/Ulcer Outcome Not Healed Not Healed Healed- Epithelialized -Ulcer Cleansing Rinsed/ Rinsed/ Rinsed/ Irrigated with Irrigated with Irrigated with Saline Saline Saline -Foul Odor after Cleansing No No No -Bioengineered Tissue No No No -Topical Lidocaine (%) 4 -Injectable Lidocaine (%) 5 -Bleeding Controlled with Pressure NA NA -Other no debridement amniofill intact covered with c-hydrogel -Treatment Response Procedure Procedure Procedure Tolerated Well Tolerated Well Tolerated Well #5 RIGHT MEDIAL CALF -Time 14:17 08:51 08:53 -Correct Patient Yes Yes Yes -Correct Side, Site, Position Yes Yes Yes -Correct Procedure Yes Yes Yes -Procedure Performed Yes Yes Yes -Type of Procedure Debridement -Clinical Debridement Subcutaneous -Post Debridement Size (cm) - Length 7.0 7.0 6.7 -Post Debridement Size (cm) - Width 5.5 5.5 4.7 -Post Debridement Size (cm) - Depth 0.1 0.1 0.1 -Total Square Cm 38.50 38.50 31.49 -Wound/Ulcer Outcome Not Healed Not Healed Not Healed -Ulcer Cleansing Rinsed/ Rinsed/ Rinsed/ Irrigated with Irrigated with Irrigated with Saline Saline Saline -Foul Odor after Cleansing No No No -Bioengineered Tissue No No No -Topical Lidocaine (%) 5 -Bleeding Controlled with NA NA Pressure -Other apligrap #3 no debridement intact covered amniofill with wound veil intact covered secured with with c-hydrogel steri strips -Treatment Response Procedure Procedure Procedure Tolerated Well Tolerated Well Tolerated Well #4 Left LATERAL calf -Time 14:18 08:52 09:03 -Correct Patient Yes Yes Yes -Correct Side, Site, Position Yes Yes Yes -Correct Procedure Yes Yes Yes -Procedure Performed Yes Yes Yes -Type of Procedure Debridement Debridement -Clinical Debridement Subcutaneous Subcutaneous -Post Debridement Size (cm) - Length 1.8 1.8 1.3 -Post Debridement Size (cm) - Width 2.1 2.1 2.2 -Post Debridement Size (cm) - Depth 0.1 0.1 0.1 -Total Square Cm 3.78 3.78 2.86 -Wound/Ulcer Outcome Not Healed Not Healed Not Healed -Ulcer Cleansing Rinsed/ Rinsed/ Rinsed/ Irrigated with Irrigated with Irrigated with Saline Saline Saline -Foul Odor after Cleansing No No No -Bioengineered Tissue No No No -Topical Lidocaine (%) 5 -Injectable Lidocaine (%) 4 -Bleeding Controlled with Pressure NA Pressure -Other no debridement amniofill intact covered with c-hydrogel -Treatment Response Procedure Procedure Procedure Tolerated Well Tolerated Well Tolerated Well #3 RIGHT POSTERIOR LATERAL LE CLUSTER -Time 14:19 08:52 09:05 -Correct Patient Yes Yes Yes -Correct Side, Site, Position Yes Yes Yes -Correct Procedure Yes Yes Yes -Procedure Performed Yes Yes Yes -Type of Procedure Debridement Debridement -Clinical Debridement Subcutaneous Subcutaneous -Post Debridement Size (cm) - Length 9.5 9.5 5.2 -Post Debridement Size (cm) - Width 10.1 10.1 4.0 -Post Debridement Size (cm) - Depth 0.1 0.1 0.1 -Total Square Cm 95.95 95.95 20.80 -Wound/Ulcer Outcome Not Healed Not Healed Not Healed -Ulcer Cleansing Rinsed/ Rinsed/ Rinsed/ Irrigated with Irrigated with Irrigated with Saline Saline Saline -Foul Odor after Cleansing No No No -Bioengineered Tissue Yes No No -Type of bioengineered Tissue Apligraf -Expiration Date 07/03/18 -Product Lot Number [id number] -Percent Used 50 -Topical Lidocaine (%) 4 5 -Bleeding Controlled with Pressure NA Pressure -Other no debridement amniofill intact covered with c-hydrogel -Treatment Response Procedure Procedure Procedure Tolerated Well Tolerated Well Tolerated Well Pain Scale: 0-10 Numeric Is Patient Pain Free? Yes Yes Yes 07/25/18 10:08 Wound Center Nurse 2 #8 RIGHT POSTERIOR CALF -Time 10:08 -Correct Patient Yes -Correct Side, Site, Position Yes -Correct Procedure Yes -Procedure Performed Yes -Type of Procedure Debridement -Clinical Debridement Subcutaneous -Post Debridement Size (cm) - Length 8.6 -Post Debridement Size (cm) - Width 4.0 -Post Debridement Size (cm) - Depth 0.1 -Total Square Cm 34.40 -Wound/Ulcer Outcome Not Healed -Ulcer Cleansing Rinsed/ Irrigated with Saline -Foul Odor after Cleansing No -Bioengineered Tissue No -Topical Lidocaine (%) 4 -Bleeding Controlled with Pressure -Treatment Response Procedure Tolerated Well #7 right anterior proximal LE -Time -Correct Patient -Correct Side, Site, Position -Correct Procedure -Procedure Performed -Type of Procedure -Clinical Debridement -Post Debridement Size (cm) - Length -Post Debridement Size (cm) - Width -Post Debridement Size (cm) - Depth -Total Square Cm -Wound/Ulcer Outcome -Ulcer Cleansing -Foul Odor after Cleansing -Bioengineered Tissue -Type of bioengineered Tissue -Expiration Date -Product Lot Number -Percent Used -Saline Lot Number -Topical Lidocaine (%) -Bleeding Controlled with -Other -Treatment Response #6 LEFT MEDIAL SUPERIOR LEG -Time -Correct Patient -Correct Side, Site, Position -Correct Procedure -Procedure Performed -Type of Procedure -Clinical Debridement -Post Debridement Size (cm) - Length -Post Debridement Size (cm) - Width -Post Debridement Size (cm) - Depth -Total Square Cm -Wound/Ulcer Outcome -Ulcer Cleansing -Foul Odor after Cleansing -Bioengineered Tissue -Topical Lidocaine (%) -Injectable Lidocaine (%) -Bleeding Controlled with -Other -Treatment Response #5 RIGHT MEDIAL CALF -Time 10:09 -Correct Patient Yes -Correct Side, Site, Position Yes -Correct Procedure Yes -Procedure Performed Yes -Type of Procedure Debridement -Clinical Debridement Subcutaneous -Post Debridement Size (cm) - Length 3.0 -Post Debridement Size (cm) - Width 2.8 -Post Debridement Size (cm) - Depth 0.1 -Total Square Cm 8.40 -Wound/Ulcer Outcome Not Healed -Ulcer Cleansing Rinsed/ Irrigated with Saline -Foul Odor after Cleansing No -Bioengineered Tissue No -Topical Lidocaine (%) 4 -Bleeding Controlled with Pressure -Other -Treatment Response Procedure Tolerated Well #4 Left LATERAL calf -Time 10:09 -Correct Patient Yes -Correct Side, Site, Position Yes -Correct Procedure Yes -Procedure Performed Yes -Type of Procedure Debridement -Clinical Debridement Subcutaneous -Post Debridement Size (cm) - Length 1.1 -Post Debridement Size (cm) - Width 2.1 -Post Debridement Size (cm) - Depth 0.1 -Total Square Cm 2.31 -Wound/Ulcer Outcome Not Healed -Ulcer Cleansing Rinsed/ Irrigated with Saline -Foul Odor after Cleansing No -Bioengineered Tissue No -Topical Lidocaine (%) 4 -Injectable Lidocaine (%) -Bleeding Controlled with Pressure -Other -Treatment Response Procedure Tolerated Well #3 RIGHT POSTERIOR LATERAL LE CLUSTER -Time 10:09 -Correct Patient Yes -Correct Side, Site, Position Yes -Correct Procedure Yes -Procedure Performed Yes -Type of Procedure Debridement -Clinical Debridement Subcutaneous -Post Debridement Size (cm) - Length 1.9 -Post Debridement Size (cm) - Width 6.1 -Post Debridement Size (cm) - Depth 0.1 -Total Square Cm 11.59 -Wound/Ulcer Outcome Not Healed -Ulcer Cleansing Rinsed/ Irrigated with Saline -Foul Odor after Cleansing No -Bioengineered Tissue No -Type of bioengineered Tissue -Expiration Date -Product Lot Number -Percent Used -Topical Lidocaine (%) 4 -Bleeding Controlled with Pressure -Other -Treatment Response Procedure Tolerated Well Pain Scale: 0-10 Numeric Is Patient Pain Free? Yes Wound debrided: medial leg Laterality: Right Type of Debridement: Excisional debridement Anesthesia Used: 4% Lidocaine Solution Depth: in the subcutaneous layer Percentage of wound debrided: 50 Instrument Used: #15 blade Tissue Removed: fibrous, devitalized subcutaneous, biofilm, slough Severity: Fat Layer Exposed Amount of bleeding with debridement: Mild Bleeding Controlled with: Pressure Patient tolerated procedure well - Additional Wound Wound debrided: lateral leg Laterality: Right Type of Debridement: Excisional debridement Anesthesia Used: 4% Lidocaine Solution Depth: in the subcutaneous layer Percentage of wound debrided: 50 Instrument Used: #15 blade Tissue Removed: fibrous, devitalized subcutaneous, biofilm, slough Severity: Fat Layer Exposed Amount of bleeding with debridement: Mild Bleeding Controlled with: Pressure Patient tolerated procedure: Patient tolerated procedure well - Additional Wound Wound debrided: posterior leg Laterality: Right Type of Debridement: Excisional debridement Anesthesia Used: 4% Lidocaine Solution Depth: in the subcutaneous layer Percentage of wound debrided: 50 Instrument Used: #15 blade Tissue Removed: fibrous, devitalized subcutaneous, biofilm, slough Severity: Fat Layer Exposed Amount of bleeding with debridement: Mild Bleeding Controlled with: Pressure Patient tolerated procedure: Patient tolerated procedure well - Additional Wound Wound debrided: lateral leg Laterality: Left Type of Debridement: Excisional debridement Anesthesia Used: 4% Lidocaine Solution Depth: in the subcutaneous layer Percentage of wound debrided: 100 Instrument Used: #15 blade Tissue Removed: fibrous, devitalized subcutaneous, biofilm, slough Severity: Fat Layer Exposed Amount of bleeding with debridement: Mild Bleeding Controlled with: Pressure Patient tolerated procedure: Patient tolerated procedure well Assessment/Plan Active Problems (Last Reviewed 04/14/18 @ 12:16 by Huang Alvarado MD) Calciphylaxis (Chronic) Ulcer of left lower extremity with fat layer exposed (Chronic) Ulcer of right lower extremity with fat layer exposed (Chronic) Pain in right leg (Chronic) Pain in left leg (Chronic) Assessment: Right and left leg ulcers with fat layer exposed, chronic and noninfected. Delayed healing. venous insufficiency. Malnutrition suspected. Lower extremity pain. Multiple comorbidities noted. Calciphylaxis Plan: She was evaluated today and her care plan was discussed. She underwent a recent surgical debridement in the operating room with a versa jet and advanced wound care product, amnio fill was applied. To continue every other day dressing changes with Lacey. Subcutaneous excisional debridement was performed to bilateral lower extremities as noted in the clinical panel. She has been approved for 1 additional advanced wound care product, Apligraf, in the clinical setting. This will be ordered and applied next week. She had a follow up with Dr. Pelaez for evaluation of her arterial Doppler exam which appeared to have distal perfusion. A biopsy of the leg skin was previously obtained and the results were reviewed today and will be placed in her chart. I reiterated the importance of taking pressure off of these wound sites. She was told by her doctor to stop taking glucerna as it had too much calcium. To only take nutritional supplementation but do not have additional calcium in them. He has completed a course of sodium thiosulfate for treatment of calciphylaxis as prescribed. This will be stopped for duration of 2 months. She will continue on a low-dose prednisone and further calciphylaxis for sarcoidosis workup with her merchandise flow associate, Dr. Almonte. It is also noted she is going to schedule for a lung biopsy for workup of sarcoidosis nodule versus other mass growth after September. I answered all of her questions. To return to the wound healing center 1 week or call sooner if there are any questions or concerns.
== END 2018-07-25 23:59 ==
LOC: WC 10:00
PROVIDERS: Family Provider Internal Medicine; PCP Internal Medicine; Referring Provider Family Medicine; Visit Provider Podiatrist
DX: I87.2 Venous insufficiency (chronic) (peripheral) (principal); L97.812 Non-pressure chronic ulcer of other part of right lower leg with fat layer exposed; L97.822 Non-pressure chronic ulcer of other part of left lower leg with fat layer exposed; E83.59 Other disorders of calcium metabolism; M79.605 Pain in left leg; M79.604 Pain in right leg
CPT/HCPCS: 11042; 11045; 15271; 15272; 99214; Q4101; G0463

== ENCOUNTER → 2018-07-31 07:21 | Outpatient (CLI) | payer MEDICARE, SELFPAY | PROVIDERS: Family Provider Internal Medicine; PCP Internal Medicine; Referring Provider Internal Medicine Nephrology; Visit Provider Internal Medicine Nephrology | DX: Z45.2 Encounter for adjustment and management of vascular access device (principal) | CPT/HCPCS: A4216 ==

== ENCOUNTER → 2018-08-07 09:08 | Outpatient (CLI) | payer MEDICARE, SELFPAY ==
[2018-08-07 10:49] LABS: Albumin, Serum 3.4 g/dL (3.2-5.0); BUN 42 mg/dL (7-18); BUN/Creat Ratio 35.3 RATIO (10-20); Calcium,Total 8.6 mg/dL (8.5-10.1); Chloride 103 mmol/L (98-107); Creatinine, Serum 1.19 mg/dL (0.55-1.02); EST Glomerular Filtration Rate 47 mL/min (>60); Est Glom Filt Rate - Afr Amer 57 mL/min (>60); Glucose 226 mg/dL (74-106); Phosphorus 2.6 mg/dL (2.5-4.9); Potassium 3.7 mmol/L (3.5-5.1); Sodium Level 138 mmol/L (136-145)
[2018-08-12 11:33] LABS: Vitamin D 1,25-Dihydroxy 23.4 pg/mL (19.9-79.3)
== END ==
PROVIDERS: Family Provider Internal Medicine; PCP Internal Medicine; Visit Provider Internal Medicine Nephrology
DX: Z45.2 Encounter for adjustment and management of vascular access device (principal); N18.3 Chronic kidney disease, stage 3 (moderate); E67.3 Hypervitaminosis D
CPT/HCPCS: 36592; 80069; 82652; A4216

== ENCOUNTER → 2018-08-13 09:06 | Outpatient (CLI) | payer MEDICARE, SELFPAY | PROVIDERS: Family Provider Internal Medicine; PCP Internal Medicine; Referring Provider Internal Medicine Nephrology; Visit Provider Internal Medicine Nephrology | DX: Z45.2 Encounter for adjustment and management of vascular access device (principal) | CPT/HCPCS: A4216 ==

== ENCOUNTER 2018-08-20 08:32 | Day surgery (SDC) | payer MEDICARE, SELFPAY ==
[2018-08-20 08:52] VITALS: BP 132/86; PULSE 79; RESP 16; TEMP 36.3; O2SAT 98; BMI 30.1
[2018-08-20 09:05] LABS: Bedside Glucose 93 mg/dL (70-110)
[2018-08-20 09:50] VITALS: BP 132/86; BP 99/63; PULSE 77; RESP 16; TEMP 36.1; O2SAT 100
--- NOTE | 2018-08-20 09:51 | OP.ENDO_ITS ---
Patient Name: Di Zapata Procedure Date: 08/20/2018 9:22 AM Date of : 1945 Age: 72 Procedure: Colonoscopy Indications: Melena, Gastrointestinal bleeding Providers: Huang Alvarado MD Medicines: See the Anesthesia note for documentation of the administered medications Patient Profile: This is a 72 year old female. Refer to note in patient chart for documentation of history and physical. Last Colonoscopy: more than 3 years ago. Complications: No immediate complications. Procedure: Pre-Anesthesia Assessment: - Prior to the procedure, a History and Physical was performed, and patient medications and allergies were reviewed. The patient's tolerance of previous anesthesia was also reviewed. The risks and benefits of the procedure and the sedation options and risks were discussed with the patient. All questions were answered, and informed consent was obtained. Prior Anticoagulants: The patient has taken no previous anticoagulant or antiplatelet agents. ASA Grade Assessment: III - A patient with severe systemic disease. After reviewing the risks and benefits, the patient was deemed in satisfactory condition to undergo the procedure. After I obtained informed consent, the scope was passed under direct vision. Throughout the procedure, the patient's blood pressure, pulse, and oxygen saturations were monitored continuously. The adult colonoscope was introduced through the anus and advanced to the cecum, identified by appendiceal orifice and ileocecal valve. The colonoscopy was performed without difficulty. The patient tolerated the procedure well. The quality of the bowel preparation was good. Scope In: 9:34:59 AM Scope Withdrawal Time 0 hours 6 minutes 4 seconds Scope Out: 9:45:25 AM Total Procedure Duration Time 0 hours 10 minutes 26 seconds Findings: A few small-mouthed diverticula were found in the sigmoid colon. No biopsies or other specimens were collected for this exam. Non-bleeding internal hemorrhoids were found during retroflexion. The hemorrhoids were mild and small. The exam was otherwise without abnormality. Impression: - Diverticulosis in the sigmoid colon. No specimens collected. - Non-bleeding internal hemorrhoids. - The examination was otherwise normal. Recommendation: - Discharge patient to home. - Resume previous diet. - Continue present medications. - Repeat colonoscopy in 10 years for screening purposes. - Return to my office PRN. Procedure Code(s): --- Professional --- 70233, Colonoscopy, flexible; diagnostic, including collection of specimen(s) by brushing or washing, when performed (separate procedure) Diagnosis Code(s): --- Professional --- K64.8, Other hemorrhoids K92.1, Melena (includes Hematochezia) K92.2, Gastrointestinal hemorrhage, unspecified K57.30, Diverticulosis of large intestine without perforation or abscess without bleeding CPT copyright 2017 [employer]. All rights reserved. The codes documented in this report are preliminary and upon activities volunteer review may be revised to meet current compliance requirements. MD Huang Romero MD 08/20/2018 9:51:29 AM This report has been signed electronically. Number of Addenda: 0 Note Initiated On: 08/20/2018 9:22 AM
[2018-08-20 09:55] VITALS: BP 100/63; BP 132/86; PULSE 74; RESP 16; O2SAT 97
[2018-08-20 10:00] VITALS: BP 101/64; BP 132/86; PULSE 73; RESP 16; O2SAT 99
[2018-08-20 10:05] VITALS: BP 111/72; BP 132/86; PULSE 74; RESP 16; TEMP 36; O2SAT 100
[2018-08-20 10:40] VITALS: BP 132/86
== END 2018-08-20 10:41 | disposition home or self-care (01) ==
LOC: EN 08:32 → AC 08:33
PROVIDERS: Family Provider Internal Medicine; PCP Internal Medicine; Referring Provider Surgery; Visit Provider Surgery
PROC: 0DJD8ZZ Inspection of Lower Intestinal Tract, Via Natural or Artificial Opening Endoscopic (ICD-10-PCS; CPT 45378; principal; 2018-08-20 09:40)
DX: K92.1 Melena (principal); K64.8 Other hemorrhoids; K57.30 Diverticulosis of large intestine without perforation or abscess without bleeding; G47.33 Obstructive sleep apnea (adult) (pediatric); I48.2 Chronic atrial fibrillation; I10 Essential (primary) hypertension; F32.9 Major depressive disorder, single episode, unspecified; I27.20 Pulmonary hypertension, unspecified; E11.9 Type 2 diabetes mellitus without complications
CPT/HCPCS: 45378; 82962; J7120; A4216

== ENCOUNTER → 2018-08-21 08:36 | Outpatient (CLI) | payer MEDICARE, SELFPAY ==
[2018-08-20 08:52] VITALS: BMI 30.1
== END ==
PROVIDERS: Family Provider Internal Medicine; PCP Internal Medicine; Referring Provider Internal Medicine Nephrology; Visit Provider Internal Medicine Nephrology
DX: Z45.2 Encounter for adjustment and management of vascular access device (principal)

== ENCOUNTER 2018-08-22 09:45 | Outpatient (RCR) | payer MEDICARE, SELFPAY ==
[2018-07-26 00:47] VITALS: BP 111/60; PULSE 89; RESP 16; TEMP 36.3; BMI 35.4
[2018-08-01 10:01] VITALS: BP 130/76; PULSE 91; RESP 16; TEMP 36.6; BMI 35.4
--- NOTE | 2018-08-01 11:13 | PCM.WC.PN ---
(1) Calciphylaxis Status: Chronic Current Visit: Yes Code(s): E83.59 - Other disorders of calcium metabolism (2) Ulcer of left lower extremity with fat layer exposed Status: Chronic Current Visit: Yes Code(s): L97.922 - Non-pressure chronic ulcer of unspecified part of left lower leg with fat layer exposed (3) Ulcer of right lower extremity with fat layer exposed Status: Chronic Current Visit: Yes Code(s): L97.912 - Non-pressure chronic ulcer of unspecified part of right lower leg with fat layer exposed (4) Localized edema Status: Chronic Current Visit: Yes Code(s): R60.0 - Localized edema Type of Wound Chief Complaint: Ulcers bilateral legs History of Wound: Di is a 72 year old female that returns for follow up of bilateral leg ulcers. She had several theraskin and Apligraf applications applied in the clinical setting. She recently had a versa jet debridement with serial amnio fill, advanced wound care product, application in the operating room this past week. She denies pain, fever, chill, nausea, vomiting. She has been compliant with every other day Lacey applications this past week. She denies recent illness. She did follow-up with Dr. Almonte, her veneer sorter who has reviewed her recent laboratory work . It is noted that her PICC line is still in place. It is also noted she is continuing on a low dose of prednisone for treatment of suspected underlying sarcoidosis. Her pain has significantly reduced. Progress of Wound: Improving - Physical Exam Vital Signs Temp Pulse Resp BP 97.9 F 91 16 130/76 H 08/01/18 10:01 08/01/18 10:01 08/01/18 10:01 08/01/18 10:01 General: Alert, Oriented x3, Cooperative Extremities: No cyanosis, Capillary Refill Less than 3 Seconds, No Calf Tenderness - Negative Kimberly and Layton sign bilateral. Compartments remain soft on palpation bilateral lower extremities, Diminished Peripheral Pulses, Edema Skin: Ulcer/ Wound - No purulence, erythema, streaking, odor, or acute infection or deep tissue exposure bilateral lower cavities. The peripheral skin is hairless and atrophic. There is significant progressive peripheral epithelialization noted and healing is progressing well. Wound Measurements and Assessment WC - Nurse 1 - General Ulcer Measurement Start: 08/01/18 10:01 Freq: Status: Active Protocol: Activity Type Activity Date Activity User E-Sign Co-Sign Detail Recorded Client Recorded Date Recorded By Document 08/01/18 10:01 [id number] 08/01/18 10:16 08/01/18 10:01 Wound Center Nurse 1 [Ulcer Assessment] #8 RIGHT POSTERIOR CALF -Combined with other wound No -Current Size (cm) - Length 10.5 -Current Size (cm) - Width 1.5 -Current Size (cm) - Depth 0.1 -Total Square Cm 15.75 -Photo Taken No -Epithelialization Small 1-33% -Tunneling No -Undermining/Tunneling No -Circular Undermining No -Exudate Amt Small (1-33%) -Exudate Type Serosanguineous -Wound Margin Distinct, Outline Attached -Granulation Amt Medium (34-66%) -Granulation Quality [place] -Slough/Fibrin Yes -Necrosis Amt Small (1-33%) -Necrotic Tissue Type Adherent Slough -Texture (Gabriella-wound Skin Appearance) Assessed Scarring -Moisture (Gabriella-wound Skin Appearance Assessed ) Dry/Scaly -Color (Gabriella-wound Skin Appearance) No Abnormality Assessed -Temperature (Gabriella-wound Skin No Abnormality Appearance) (Pt Warm) -Tenderness on Palpation (Gabriella-wound No Skin Appearance) -Ulcer Cleansing Rinsed/ Irrigated with Saline -Foul Odor after Cleansing No -Anesthetic Used 4% Lidocaine Solution #7 right anterior proximal LE -Combined with other wound No -Current Size (cm) - Length 2.4 -Current Size (cm) - Width 2.8 -Current Size (cm) - Depth 0.1 -Total Square Cm 6.72 -Photo Taken No -Epithelialization Medium 34-66% -Tunneling No -Undermining/Tunneling No -Circular Undermining No -Exudate Amt Small (1-33%) -Exudate Type Serosanguineous -Wound Margin Distinct, Outline Attached -Granulation Amt Medium (34-66%) -Granulation Quality [place] -Slough/Fibrin Yes -Necrosis Amt Small (1-33%) -Necrotic Tissue Type Adherent Slough -Texture (Gabriella-wound Skin Appearance) Assessed Scarring -Moisture (Gabriella-wound Skin Appearance Assessed ) Dry/Scaly -Color (Gabriella-wound Skin Appearance) No Abnormality Assessed -Temperature (Gabriella-wound Skin No Abnormality Appearance) (Pt Warm) -Tenderness on Palpation (Gabriella-wound No Skin Appearance) -Ulcer Cleansing Rinsed/ Irrigated with Saline -Foul Odor after Cleansing No -Anesthetic Used 4% Lidocaine Solution #6 LEFT MEDIAL SUPERIOR LEG -Combined with other wound No -Current Size (cm) - Length 0.6 -Current Size (cm) - Width 0.3 -Current Size (cm) - Depth 0.1 -Total Square Cm 0.18 -Photo Taken No -Epithelialization Medium 34-66% -Tunneling No -Undermining/Tunneling No -Circular Undermining No -Exudate Amt Small (1-33%) -Exudate Type Serosanguineous -Wound Margin Distinct, Outline Attached -Granulation Amt Medium (34-66%) -Granulation Quality [place] -Slough/Fibrin Yes -Necrosis Amt Small (1-33%) -Necrotic Tissue Type Adherent Slough -Texture (Gabriella-wound Skin Appearance) Assessed Scarring -Moisture (Gabriella-wound Skin Appearance Assessed ) Dry/Scaly -Color (Gabriella-wound Skin Appearance) No Abnormality Assessed -Temperature (Gabriella-wound Skin No Abnormality Appearance) (Pt Warm) -Tenderness on Palpation (Gabriella-wound No Skin Appearance) -Ulcer Cleansing Rinsed/ Irrigated with Saline -Foul Odor after Cleansing No -Anesthetic Used 4% Lidocaine Solution #5 RIGHT MEDIAL CALF -Combined with other wound No -Current Size (cm) - Length 5.5 -Current Size (cm) - Width 1.0 -Current Size (cm) - Depth 0.1 -Total Square Cm 5.50 -Photo Taken No -Epithelialization Medium 34-66% -Tunneling No -Undermining/Tunneling No -Circular Undermining No -Exudate Amt Small (1-33%) -Exudate Type Serosanguineous -Wound Margin Distinct, Outline Attached -Granulation Amt Medium (34-66%) -Granulation Quality [place] -Slough/Fibrin Yes -Necrosis Amt Small (1-33%) -Necrotic Tissue Type Adherent Slough -Texture (Gabriella-wound Skin Appearance) Assessed Scarring -Moisture (Gabriella-wound Skin Appearance Assessed ) Dry/Scaly -Color (Gabriella-wound Skin Appearance) No Abnormality Assessed -Temperature (Gabriella-wound Skin No Abnormality Appearance) (Pt Warm) -Tenderness on Palpation (Gabriella-wound No Skin Appearance) -Ulcer Cleansing Rinsed/ Irrigated with Saline -Foul Odor after Cleansing No -Anesthetic Used 4% Lidocaine Solution #4 Left LATERAL calf -Combined with other wound No -Current Size (cm) - Length 0.8 -Current Size (cm) - Width 2.3 -Current Size (cm) - Depth 0.1 -Total Square Cm 1.84 -Photo Taken No -Epithelialization Medium 34-66% -Tunneling No -Undermining/Tunneling No -Circular Undermining No -Exudate Amt Small (1-33%) -Exudate Type Serosanguineous -Wound Margin Distinct, Outline Attached -Granulation Amt Medium (34-66%) -Granulation Quality [place] -Slough/Fibrin Yes -Necrosis Amt Small (1-33%) -Necrotic Tissue Type Adherent Slough -Texture (Gabriella-wound Skin Appearance) Not Assessed Scarring -Moisture (Gabriella-wound Skin Appearance Assessed ) Dry/Scaly -Color (Gabriella-wound Skin Appearance) No Abnormality Assessed -Temperature (Gabriella-wound Skin No Abnormality Appearance) (Pt Warm) -Tenderness on Palpation (Gabriella-wound No Skin Appearance) -Ulcer Cleansing Rinsed/ Irrigated with Saline -Foul Odor after Cleansing No -Anesthetic Used 4% Lidocaine Solution [Edema Assessment] -Right Calf (cm) 33.8 -Right Ankle (cm) 21 -Left Calf (cm) 32 -Left Ankle (cm) 20.8 WC - Nurse 2 - General Ulcer CM Notes Start: 08/01/18 10:01 Freq: Status: Active Protocol: Activity Type Activity Date Activity User E-Sign Co-Sign Detail Recorded Client Recorded Date Recorded By Document 08/01/18 10:35 BJ [id number] 08/01/18 10:44 BJ 08/01/18 10:35 Wound Center Nurse 2 [Procedure/Treatment] #8 RIGHT POSTERIOR CALF -Time 10:35 -Correct Patient Yes -Correct Side, Site, Position Yes -Correct Procedure Yes -Procedure Performed Yes -Type of Procedure Debridement -Clinical Debridement Subcutaneous -Post Debridement Size (cm) - Length 10.6 -Post Debridement Size (cm) - Width 1.6 -Post Debridement Size (cm) - Depth 0.1 -Total Square Cm 16.96 -Wound/Ulcer Outcome Not Healed -Ulcer Cleansing Rinsed/ Irrigated with Saline -Foul Odor after Cleansing No -Bioengineered Tissue Yes -Type of bioengineered Tissue Apligraf -Expiration Date 08/09/18 -Product Lot Number [id number] -Percent Used 100 -Saline Lot Number [id number] -Bleeding Controlled with Pressure -Other 60% debrided -Treatment Response Procedure Tolerated Well #7 right anterior proximal LE -Time 10:36 -Correct Patient No -Correct Side, Site, Position No -Correct Procedure No -Procedure Performed No -Post Debridement Size (cm) - Length 0 -Post Debridement Size (cm) - Width 0 -Post Debridement Size (cm) - Depth 0 -Total Square Cm 0 -Wound/Ulcer Outcome Healed- Epithelialized -Ulcer Cleansing Rinsed/ Irrigated with Saline -Foul Odor after Cleansing No -Bioengineered Tissue No -Expiration Date 08/09/18 -Product Lot Number [id number] -Percent Used 100 -Saline Lot Number [id number] -Treatment Response Procedure Tolerated Well #6 LEFT MEDIAL SUPERIOR LEG -Time 10:37 -Correct Patient No -Correct Side, Site, Position No -Correct Procedure No -Procedure Performed No -Type of Procedure Debridement -Clinical Debridement Subcutaneous -Post Debridement Size (cm) - Length 0 -Post Debridement Size (cm) - Width 0 -Post Debridement Size (cm) - Depth 0 -Total Square Cm 0 -Wound/Ulcer Outcome Healed- Epithelialized -Ulcer Cleansing Rinsed/ Irrigated with Saline -Foul Odor after Cleansing No -Bioengineered Tissue No -Bleeding Controlled with NA -Treatment Response Procedure Tolerated Well #5 RIGHT MEDIAL CALF -Time 10:38 -Correct Patient Yes -Correct Side, Site, Position Yes -Correct Procedure Yes -Procedure Performed Yes -Type of Procedure Debridement -Clinical Debridement Subcutaneous -Post Debridement Size (cm) - Length 5.6 -Post Debridement Size (cm) - Width 1.1 -Post Debridement Size (cm) - Depth 0.1 -Total Square Cm 6.16 -Wound/Ulcer Outcome Not Healed -Ulcer Cleansing Rinsed/ Irrigated with Saline -Foul Odor after Cleansing No -Bioengineered Tissue Yes -Type of bioengineered Tissue Apligraf -Expiration Date 08/09/18 -Product Lot Number [id number] -Percent Used 100 -Saline Lot Number [id number] -Bleeding Controlled with Pressure -Other 60% debrided. -Treatment Response Procedure Tolerated Well #4 Left LATERAL calf -Time 10:40 -Correct Patient Yes -Correct Side, Site, Position Yes -Correct Procedure Yes -Procedure Performed Yes -Type of Procedure Debridement -Clinical Debridement Subcutaneous -Post Debridement Size (cm) - Length 0.9 -Post Debridement Size (cm) - Width 2.3 -Post Debridement Size (cm) - Depth 0.1 -Total Square Cm 2.07 -Wound/Ulcer Outcome Not Healed -Ulcer Cleansing Rinsed/ Irrigated with Saline -Foul Odor after Cleansing No -Bioengineered Tissue No -Bleeding Controlled with Pressure -Treatment Response Procedure Tolerated Well #3 RIGHT POSTERIOR LATERAL LE CLUSTER -Time 10:40 -Correct Patient Yes -Correct Side, Site, Position Yes -Correct Procedure Yes -Procedure Performed Yes -Type of Procedure Debridement -Clinical Debridement Subcutaneous -Post Debridement Size (cm) - Length 2.4 -Post Debridement Size (cm) - Width 2.9 -Post Debridement Size (cm) - Depth 0.1 -Total Square Cm 6.96 -Wound/Ulcer Outcome Not Healed -Ulcer Cleansing Rinsed/ Irrigated with Saline -Foul Odor after Cleansing No -Bioengineered Tissue Yes -Type of bioengineered Tissue Apligraf -Expiration Date 08/09/18 -Product Lot Number [id number] -Bleeding Controlled with Pressure -Treatment Response Procedure Tolerated Well [See Physician Procedure note for Specifics] Pain Scale: 0-10 Numeric [Pain] -Is Patient Pain Free? Yes Musculoskeletal: No Tenderness to Palpation of Joints or Extremities, Muscle Wasting Neurological: Sensory exam intact to light touch and pain, - Psych/Mental Status: Normal Affect, Appropriate Debridement Note Post-Debridement Measurements/Treatment WC - Nurse 2 - General Ulcer CM Notes Start: 08/01/18 10:01 Freq: Status: Active Protocol: Activity Type Activity Date Activity User E-Sign Co-Sign Detail Recorded Client Recorded Date Recorded By Document 08/01/18 10:35 BJ [id number] 08/01/18 10:44 BJ 08/01/18 10:35 Wound Center Nurse 2 #8 RIGHT POSTERIOR CALF -Time 10:35 -Correct Patient Yes -Correct Side, Site, Position Yes -Correct Procedure Yes -Procedure Performed Yes -Type of Procedure Debridement -Clinical Debridement Subcutaneous -Post Debridement Size (cm) - Length 10.6 -Post Debridement Size (cm) - Width 1.6 -Post Debridement Size (cm) - Depth 0.1 -Total Square Cm 16.96 -Wound/Ulcer Outcome Not Healed -Ulcer Cleansing Rinsed/ Irrigated with Saline -Foul Odor after Cleansing No -Bioengineered Tissue Yes -Type of bioengineered Tissue Apligraf -Expiration Date 08/09/18 -Product Lot Number [id number] -Percent Used 100 -Saline Lot Number [id number] -Bleeding Controlled with Pressure -Other 60% debrided -Treatment Response Procedure Tolerated Well #7 right anterior proximal LE -Time 10:36 -Correct Patient No -Correct Side, Site, Position No -Correct Procedure No -Procedure Performed No -Post Debridement Size (cm) - Length 0 -Post Debridement Size (cm) - Width 0 -Post Debridement Size (cm) - Depth 0 -Total Square Cm 0 -Wound/Ulcer Outcome Healed- Epithelialized -Ulcer Cleansing Rinsed/ Irrigated with Saline -Foul Odor after Cleansing No -Bioengineered Tissue No -Expiration Date 08/09/18 -Product Lot Number [id number] -Percent Used 100 -Saline Lot Number [id number] -Treatment Response Procedure Tolerated Well #6 LEFT MEDIAL SUPERIOR LEG -Time 10:37 -Correct Patient No -Correct Side, Site, Position No -Correct Procedure No -Procedure Performed No -Type of Procedure Debridement -Clinical Debridement Subcutaneous -Post Debridement Size (cm) - Length 0 -Post Debridement Size (cm) - Width 0 -Post Debridement Size (cm) - Depth 0 -Total Square Cm 0 -Wound/Ulcer Outcome Healed- Epithelialized -Ulcer Cleansing Rinsed/ Irrigated with Saline -Foul Odor after Cleansing No -Bioengineered Tissue No -Bleeding Controlled with NA -Treatment Response Procedure Tolerated Well #5 RIGHT MEDIAL CALF -Time 10:38 -Correct Patient Yes -Correct Side, Site, Position Yes -Correct Procedure Yes -Procedure Performed Yes -Type of Procedure Debridement -Clinical Debridement Subcutaneous -Post Debridement Size (cm) - Length 5.6 -Post Debridement Size (cm) - Width 1.1 -Post Debridement Size (cm) - Depth 0.1 -Total Square Cm 6.16 -Wound/Ulcer Outcome Not Healed -Ulcer Cleansing Rinsed/ Irrigated with Saline -Foul Odor after Cleansing No -Bioengineered Tissue Yes -Type of bioengineered Tissue Apligraf -Expiration Date 08/09/18 -Product Lot Number [id number] -Percent Used 100 -Saline Lot Number [id number] -Bleeding Controlled with Pressure -Other 60% debrided. -Treatment Response Procedure Tolerated Well #4 Left LATERAL calf -Time 10:40 -Correct Patient Yes -Correct Side, Site, Position Yes -Correct Procedure Yes -Procedure Performed Yes -Type of Procedure Debridement -Clinical Debridement Subcutaneous -Post Debridement Size (cm) - Length 0.9 -Post Debridement Size (cm) - Width 2.3 -Post Debridement Size (cm) - Depth 0.1 -Total Square Cm 2.07 -Wound/Ulcer Outcome Not Healed -Ulcer Cleansing Rinsed/ Irrigated with Saline -Foul Odor after Cleansing No -Bioengineered Tissue No -Bleeding Controlled with Pressure -Treatment Response Procedure Tolerated Well #3 RIGHT POSTERIOR LATERAL LE CLUSTER -Time 10:40 -Correct Patient Yes -Correct Side, Site, Position Yes -Correct Procedure Yes -Procedure Performed Yes -Type of Procedure Debridement -Clinical Debridement Subcutaneous -Post Debridement Size (cm) - Length 2.4 -Post Debridement Size (cm) - Width 2.9 -Post Debridement Size (cm) - Depth 0.1 -Total Square Cm 6.96 -Wound/Ulcer Outcome Not Healed -Ulcer Cleansing Rinsed/ Irrigated with Saline -Foul Odor after Cleansing No -Bioengineered Tissue Yes -Type of bioengineered Tissue Apligraf -Expiration Date 08/09/18 -Product Lot Number [id number] -Bleeding Controlled with Pressure -Treatment Response Procedure Tolerated Well Pain Scale: 0-10 Numeric Is Patient Pain Free? Yes Wound debrided: lateral Laterality: Left Type of Debridement: Excisional debridement Anesthesia Used: 4% Lidocaine Solution Depth: in the subcutaneous layer Percentage of wound debrided: 100 Instrument Used: #15 blade Tissue Removed: fibrous, devitalized subcutaneous, biofilm, slough Severity: Fat Layer Exposed Amount of bleeding with debridement: Mild Bleeding Controlled with: Pressure Patient tolerated procedure well - Additional Wound Wound debrided: anterior leg Laterality: Right Type of Debridement: Excisional debridement Anesthesia Used: 4% Lidocaine Solution Depth: in the subcutaneous layer Percentage of wound debrided: 60 Instrument Used: #15 blade Tissue Removed: fibrous, devitalized subcutaneous, biofilm, slough Severity: Fat Layer Exposed Amount of bleeding with debridement: Mild Bleeding Controlled with: Pressure Patient tolerated procedure: Patient tolerated procedure well - Additional Wound Wound debrided: posterior leg Laterality: Right Type of Debridement: Excisional debridement Anesthesia Used: 4% Lidocaine Solution Depth: in the subcutaneous layer Percentage of wound debrided: 60 Instrument Used: #15 blade Tissue Removed: fibrous, devitalized subcutaneous, biofilm, slough Severity: Fat Layer Exposed Amount of bleeding with debridement: Mild Bleeding Controlled with: Pressure Patient tolerated procedure: Patient tolerated procedure well - Additional Wound Wound debrided: medial leg Laterality: Right Type of Debridement: Excisional debridement Anesthesia Used: 4% Lidocaine Solution Depth: in the subcutaneous layer Percentage of wound debrided: 60 Instrument Used: #15 blade Tissue Removed: fibrous, devitalized subcutaneous, biofilm, slough Severity: Fat Layer Exposed Amount of bleeding with debridement: Mild Bleeding Controlled with: Pressure Patient tolerated procedure: Patient tolerated procedure well - Additional Wound Wound debrided: lateral leg Laterality: Right Type of Debridement: Excisional debridement Anesthesia Used: 4% Lidocaine Solution Depth: in the subcutaneous layer Percentage of wound debrided: 60 Instrument Used: #15 blade Tissue Removed: fibrous, devitalized subcutaneous, biofilm, slough Severity: Fat Layer Exposed Amount of bleeding with debridement: Mild Bleeding Controlled with: Pressure Patient tolerated procedure: Patient tolerated procedure well Assessment/Plan Active Problems (Last Updated 08/01/18 @ 08:19 by Cammy Altamirano) Calciphylaxis (Chronic) Ulcer of left lower extremity with fat layer exposed (Chronic) Ulcer of right lower extremity with fat layer exposed (Chronic) Localized edema (Chronic) Assessment: Right and left leg ulcers with fat layer exposed, chronic and noninfected. Delayed healing. venous insufficiency. Malnutrition suspected. Lower extremity pain. Multiple comorbidities noted. Calciphylaxis Plan: She was evaluated today and her care plan was discussed. She underwent a recent surgical debridement in the operating room with a versa jet and advanced wound care product, amnio fill was applied. To continue every other day dressing changes with Lacey to the left lower extremity. Subcutaneous excisional debridement was performed to bilateral lower extremities as noted in the clinical panel. She has been approved for 1 additional advanced wound care product, Apligraf, in the clinical setting. This was applied today according to standard protocol after verbal consent. To keep clean and dry and intact until follow-up next week. This was secured in place with Steri-Strips and wound veil. I recommend continued serial application of advanced wound care products and will see if she is approved for epi fix next week for the right and the left legs. She had a follow up with Dr. Pelaez for evaluation of her arterial Doppler exam which appeared to have distal perfusion. A biopsy of the leg skin was previously obtained and the results were reviewed today and will be placed in her chart. I reiterated the importance of taking pressure off of these wound sites. She was told by her doctor to stop taking glucerna as it had too much calcium. To only take nutritional supplementation but do not have additional calcium in them. He has completed a course of sodium thiosulfate for treatment of calciphylaxis as prescribed. She will continue on a low-dose prednisone and further calciphylaxis for sarcoidosis workup with her veneer sorter, Dr. Almonte. It is also noted she is going to schedule for a lung biopsy for workup of sarcoidosis nodule versus other mass growth after September. I answered all of her questions. To return to the wound healing center 1 week or call sooner if there are any questions or concerns.
--- NOTE | 2018-08-01 11:18 | PN.PCM_ITS ---
(1) Calciphylaxis Status: Chronic Current Visit: Yes Code(s): E83.59 - Other disorders of calcium metabolism (2) Ulcer of left lower extremity with fat layer exposed Status: Chronic Current Visit: Yes Code(s): L97.922 - Non-pressure chronic ulcer of unspecified part of left lower leg with fat layer exposed (3) Ulcer of right lower extremity with fat layer exposed Status: Chronic Current Visit: Yes Code(s): L97.912 - Non-pressure chronic ulcer of unspecified part of right lower leg with fat layer exposed (4) Localized edema Status: Chronic Current Visit: Yes Code(s): R60.0 - Localized edema Type of Wound Chief Complaint: Ulcers bilateral legs History of Wound: Di is a 72 year old female that returns for follow up of bilateral leg ulcers. She had several theraskin and Apligraf applications applied in the clinical setting. She recently had a versa jet debridement with serial amnio fill, advanced wound care product, application in the operating room this past week. She denies pain, fever, chill, nausea, vomiting. She has been compliant with every other day Lacey applications this past week. She denies recent illness. She did follow-up with Dr. Almonte, her box nailer who has reviewed her recent laboratory work . It is noted that her PICC line is still in place. It is also noted she is continuing on a low dose of prednisone for treatment of suspected underlying sarcoidosis. Her pain has significantly reduced. Progress of Wound: Improving - Physical Exam Vital Signs Temp Pulse Resp BP 97.9 F 91 16 130/76 H 08/01/18 10:01 08/01/18 10:01 08/01/18 10:01 08/01/18 10:01 General: Alert, Oriented x3, Cooperative Extremities: No cyanosis, Capillary Refill Less than 3 Seconds, No Calf Tenderness - Negative Kimberly and Layton sign bilateral. Compartments remain soft on palpation bilateral lower extremities, Diminished Peripheral Pulses, Edema Skin: Ulcer/ Wound - No purulence, erythema, streaking, odor, or acute infection or deep tissue exposure bilateral lower cavities. The peripheral skin is hairless and atrophic. There is significant progressive peripheral epithelialization noted and healing is progressing well. Wound Measurements and Assessment WC - Nurse 1 - General Ulcer Measurement Start: 08/01/18 10:01 Freq: Status: Active Protocol: Activity Type Activity Date Activity User E-Sign Co-Sign Detail Recorded Client Recorded Date Recorded By Document 08/01/18 10:01 [id number] 08/01/18 10:16 08/01/18 10:01 Wound Center Nurse 1 [Ulcer Assessment] #8 RIGHT POSTERIOR CALF -Combined with other wound No -Current Size (cm) - Length 10.5 -Current Size (cm) - Width 1.5 -Current Size (cm) - Depth 0.1 -Total Square Cm 15.75 -Photo Taken No -Epithelialization Small 1-33% -Tunneling No -Undermining/Tunneling No -Circular Undermining No -Exudate Amt Small (1-33%) -Exudate Type Serosanguineous -Wound Margin Distinct, Outline Attached -Granulation Amt Medium (34-66%) -Granulation Quality [place] -Slough/Fibrin Yes -Necrosis Amt Small (1-33%) -Necrotic Tissue Type Adherent Slough -Texture (Gabriella-wound Skin Appearance) Assessed Scarring -Moisture (Gabriella-wound Skin Appearance Assessed ) Dry/Scaly -Color (Gabriella-wound Skin Appearance) No Abnormality Assessed -Temperature (Gabriella-wound Skin No Abnormality Appearance) (Pt Warm) -Tenderness on Palpation (Gabriella-wound No Skin Appearance) -Ulcer Cleansing Rinsed/ Irrigated with Saline -Foul Odor after Cleansing No -Anesthetic Used 4% Lidocaine Solution #7 right anterior proximal LE -Combined with other wound No -Current Size (cm) - Length 2.4 -Current Size (cm) - Width 2.8 -Current Size (cm) - Depth 0.1 -Total Square Cm 6.72 -Photo Taken No -Epithelialization Medium 34-66% -Tunneling No -Undermining/Tunneling No -Circular Undermining No -Exudate Amt Small (1-33%) -Exudate Type Serosanguineous -Wound Margin Distinct, Outline Attached -Granulation Amt Medium (34-66%) -Granulation Quality [place] -Slough/Fibrin Yes -Necrosis Amt Small (1-33%) -Necrotic Tissue Type Adherent Slough -Texture (Gabriella-wound Skin Appearance) Assessed Scarring -Moisture (Gabriella-wound Skin Appearance Assessed ) Dry/Scaly -Color (Gabriella-wound Skin Appearance) No Abnormality Assessed -Temperature (Gabriella-wound Skin No Abnormality Appearance) (Pt Warm) -Tenderness on Palpation (Gabriella-wound No Skin Appearance) -Ulcer Cleansing Rinsed/ Irrigated with Saline -Foul Odor after Cleansing No -Anesthetic Used 4% Lidocaine Solution #6 LEFT MEDIAL SUPERIOR LEG -Combined with other wound No -Current Size (cm) - Length 0.6 -Current Size (cm) - Width 0.3 -Current Size (cm) - Depth 0.1 -Total Square Cm 0.18 -Photo Taken No -Epithelialization Medium 34-66% -Tunneling No -Undermining/Tunneling No -Circular Undermining No -Exudate Amt Small (1-33%) -Exudate Type Serosanguineous -Wound Margin Distinct, Outline Attached -Granulation Amt Medium (34-66%) -Granulation Quality [place] -Slough/Fibrin Yes -Necrosis Amt Small (1-33%) -Necrotic Tissue Type Adherent Slough -Texture (Gabriella-wound Skin Appearance) Assessed Scarring -Moisture (Gabriella-wound Skin Appearance Assessed ) Dry/Scaly -Color (Gabriella-wound Skin Appearance) No Abnormality Assessed -Temperature (Gabriella-wound Skin No Abnormality Appearance) (Pt Warm) -Tenderness on Palpation (Gabriella-wound No Skin Appearance) -Ulcer Cleansing Rinsed/ Irrigated with Saline -Foul Odor after Cleansing No -Anesthetic Used 4% Lidocaine Solution #5 RIGHT MEDIAL CALF -Combined with other wound No -Current Size (cm) - Length 5.5 -Current Size (cm) - Width 1.0 -Current Size (cm) - Depth 0.1 -Total Square Cm 5.50 -Photo Taken No -Epithelialization Medium 34-66% -Tunneling No -Undermining/Tunneling No -Circular Undermining No -Exudate Amt Small (1-33%) -Exudate Type Serosanguineous -Wound Margin Distinct, Outline Attached -Granulation Amt Medium (34-66%) -Granulation Quality [place] -Slough/Fibrin Yes -Necrosis Amt Small (1-33%) -Necrotic Tissue Type Adherent Slough -Texture (Gabriella-wound Skin Appearance) Assessed Scarring -Moisture (Gabriella-wound Skin Appearance Assessed ) Dry/Scaly -Color (Gabriella-wound Skin Appearance) No Abnormality Assessed -Temperature (Gabriella-wound Skin No Abnormality Appearance) (Pt Warm) -Tenderness on Palpation (Gabriella-wound No Skin Appearance) -Ulcer Cleansing Rinsed/ Irrigated with Saline -Foul Odor after Cleansing No -Anesthetic Used 4% Lidocaine Solution #4 Left LATERAL calf -Combined with other wound No -Current Size (cm) - Length 0.8 -Current Size (cm) - Width 2.3 -Current Size (cm) - Depth 0.1 -Total Square Cm 1.84 -Photo Taken No -Epithelialization Medium 34-66% -Tunneling No -Undermining/Tunneling No -Circular Undermining No -Exudate Amt Small (1-33%) -Exudate Type Serosanguineous -Wound Margin Distinct, Outline Attached -Granulation Amt Medium (34-66%) -Granulation Quality [place] -Slough/Fibrin Yes -Necrosis Amt Small (1-33%) -Necrotic Tissue Type Adherent Slough -Texture (Gabriella-wound Skin Appearance) Not Assessed Scarring -Moisture (Gabriella-wound Skin Appearance Assessed ) Dry/Scaly -Color (Gabriella-wound Skin Appearance) No Abnormality Assessed -Temperature (Gabriella-wound Skin No Abnormality Appearance) (Pt Warm) -Tenderness on Palpation (Gabriella-wound No Skin Appearance) -Ulcer Cleansing Rinsed/ Irrigated with Saline -Foul Odor after Cleansing No -Anesthetic Used 4% Lidocaine Solution [Edema Assessment] -Right Calf (cm) 33.8 -Right Ankle (cm) 21 -Left Calf (cm) 32 -Left Ankle (cm) 20.8 WC - Nurse 2 - General Ulcer CM Notes Start: 08/01/18 10:01 Freq: Status: Active Protocol: Activity Type Activity Date Activity User E-Sign Co-Sign Detail Recorded Client Recorded Date Recorded By Document 08/01/18 10:35 BJ [id number] 08/01/18 10:44 BJ 08/01/18 10:35 Wound Center Nurse 2 [Procedure/Treatment] #8 RIGHT POSTERIOR CALF -Time 10:35 -Correct Patient Yes -Correct Side, Site, Position Yes -Correct Procedure Yes -Procedure Performed Yes -Type of Procedure Debridement -Clinical Debridement Subcutaneous -Post Debridement Size (cm) - Length 10.6 -Post Debridement Size (cm) - Width 1.6 -Post Debridement Size (cm) - Depth 0.1 -Total Square Cm 16.96 -Wound/Ulcer Outcome Not Healed -Ulcer Cleansing Rinsed/ Irrigated with Saline -Foul Odor after Cleansing No -Bioengineered Tissue Yes -Type of bioengineered Tissue Apligraf -Expiration Date 08/09/18 -Product Lot Number [id number] -Percent Used 100 -Saline Lot Number [id number] -Bleeding Controlled with Pressure -Other 60% debrided -Treatment Response Procedure Tolerated Well #7 right anterior proximal LE -Time 10:36 -Correct Patient No -Correct Side, Site, Position No -Correct Procedure No -Procedure Performed No -Post Debridement Size (cm) - Length 0 -Post Debridement Size (cm) - Width 0 -Post Debridement Size (cm) - Depth 0 -Total Square Cm 0 -Wound/Ulcer Outcome Healed- Epithelialized -Ulcer Cleansing Rinsed/ Irrigated with Saline -Foul Odor after Cleansing No -Bioengineered Tissue No -Expiration Date 08/09/18 -Product Lot Number [id number] -Percent Used 100 -Saline Lot Number [id number] -Treatment Response Procedure Tolerated Well #6 LEFT MEDIAL SUPERIOR LEG -Time 10:37 -Correct Patient No -Correct Side, Site, Position No -Correct Procedure No -Procedure Performed No -Type of Procedure Debridement -Clinical Debridement Subcutaneous -Post Debridement Size (cm) - Length 0 -Post Debridement Size (cm) - Width 0 -Post Debridement Size (cm) - Depth 0 -Total Square Cm 0 -Wound/Ulcer Outcome Healed- Epithelialized -Ulcer Cleansing Rinsed/ Irrigated with Saline -Foul Odor after Cleansing No -Bioengineered Tissue No -Bleeding Controlled with NA -Treatment Response Procedure Tolerated Well #5 RIGHT MEDIAL CALF -Time 10:38 -Correct Patient Yes -Correct Side, Site, Position Yes -Correct Procedure Yes -Procedure Performed Yes -Type of Procedure Debridement -Clinical Debridement Subcutaneous -Post Debridement Size (cm) - Length 5.6 -Post Debridement Size (cm) - Width 1.1 -Post Debridement Size (cm) - Depth 0.1 -Total Square Cm 6.16 -Wound/Ulcer Outcome Not Healed -Ulcer Cleansing Rinsed/ Irrigated with Saline -Foul Odor after Cleansing No -Bioengineered Tissue Yes -Type of bioengineered Tissue Apligraf -Expiration Date 08/09/18 -Product Lot Number [id number] -Percent Used 100 -Saline Lot Number [id number] -Bleeding Controlled with Pressure -Other 60% debrided. -Treatment Response Procedure Tolerated Well #4 Left LATERAL calf -Time 10:40 -Correct Patient Yes -Correct Side, Site, Position Yes -Correct Procedure Yes -Procedure Performed Yes -Type of Procedure Debridement -Clinical Debridement Subcutaneous -Post Debridement Size (cm) - Length 0.9 -Post Debridement Size (cm) - Width 2.3 -Post Debridement Size (cm) - Depth 0.1 -Total Square Cm 2.07 -Wound/Ulcer Outcome Not Healed -Ulcer Cleansing Rinsed/ Irrigated with Saline -Foul Odor after Cleansing No -Bioengineered Tissue No -Bleeding Controlled with Pressure -Treatment Response Procedure Tolerated Well #3 RIGHT POSTERIOR LATERAL LE CLUSTER -Time 10:40 -Correct Patient Yes -Correct Side, Site, Position Yes -Correct Procedure Yes -Procedure Performed Yes -Type of Procedure Debridement -Clinical Debridement Subcutaneous -Post Debridement Size (cm) - Length 2.4 -Post Debridement Size (cm) - Width 2.9 -Post Debridement Size (cm) - Depth 0.1 -Total Square Cm 6.96 -Wound/Ulcer Outcome Not Healed -Ulcer Cleansing Rinsed/ Irrigated with Saline -Foul Odor after Cleansing No -Bioengineered Tissue Yes -Type of bioengineered Tissue Apligraf -Expiration Date 08/09/18 -Product Lot Number [id number] -Bleeding Controlled with Pressure -Treatment Response Procedure Tolerated Well [See Physician Procedure note for Specifics] Pain Scale: 0-10 Numeric [Pain] -Is Patient Pain Free? Yes Musculoskeletal: No Tenderness to Palpation of Joints or Extremities, Muscle Wasting Neurological: Sensory exam intact to light touch and pain, - Psych/Mental Status: Normal Affect, Appropriate Debridement Note Post-Debridement Measurements/Treatment WC - Nurse 2 - General Ulcer CM Notes Start: 08/01/18 10:01 Freq: Status: Active Protocol: Activity Type Activity Date Activity User E-Sign Co-Sign Detail Recorded Client Recorded Date Recorded By Document 08/01/18 10:35 BJ [id number] 08/01/18 10:44 BJ 08/01/18 10:35 Wound Center Nurse 2 #8 RIGHT POSTERIOR CALF -Time 10:35 -Correct Patient Yes -Correct Side, Site, Position Yes -Correct Procedure Yes -Procedure Performed Yes -Type of Procedure Debridement -Clinical Debridement Subcutaneous -Post Debridement Size (cm) - Length 10.6 -Post Debridement Size (cm) - Width 1.6 -Post Debridement Size (cm) - Depth 0.1 -Total Square Cm 16.96 -Wound/Ulcer Outcome Not Healed -Ulcer Cleansing Rinsed/ Irrigated with Saline -Foul Odor after Cleansing No -Bioengineered Tissue Yes -Type of bioengineered Tissue Apligraf -Expiration Date 08/09/18 -Product Lot Number [id number] -Percent Used 100 -Saline Lot Number [id number] -Bleeding Controlled with Pressure -Other 60% debrided -Treatment Response Procedure Tolerated Well #7 right anterior proximal LE -Time 10:36 -Correct Patient No -Correct Side, Site, Position No -Correct Procedure No -Procedure Performed No -Post Debridement Size (cm) - Length 0 -Post Debridement Size (cm) - Width 0 -Post Debridement Size (cm) - Depth 0 -Total Square Cm 0 -Wound/Ulcer Outcome Healed- Epithelialized -Ulcer Cleansing Rinsed/ Irrigated with Saline -Foul Odor after Cleansing No -Bioengineered Tissue No -Expiration Date 08/09/18 -Product Lot Number [id number] -Percent Used 100 -Saline Lot Number [id number] -Treatment Response Procedure Tolerated Well #6 LEFT MEDIAL SUPERIOR LEG -Time 10:37 -Correct Patient No -Correct Side, Site, Position No -Correct Procedure No -Procedure Performed No -Type of Procedure Debridement -Clinical Debridement Subcutaneous -Post Debridement Size (cm) - Length 0 -Post Debridement Size (cm) - Width 0 -Post Debridement Size (cm) - Depth 0 -Total Square Cm 0 -Wound/Ulcer Outcome Healed- Epithelialized -Ulcer Cleansing Rinsed/ Irrigated with Saline -Foul Odor after Cleansing No -Bioengineered Tissue No -Bleeding Controlled with NA -Treatment Response Procedure Tolerated Well #5 RIGHT MEDIAL CALF -Time 10:38 -Correct Patient Yes -Correct Side, Site, Position Yes -Correct Procedure Yes -Procedure Performed Yes -Type of Procedure Debridement -Clinical Debridement Subcutaneous -Post Debridement Size (cm) - Length 5.6 -Post Debridement Size (cm) - Width 1.1 -Post Debridement Size (cm) - Depth 0.1 -Total Square Cm 6.16 -Wound/Ulcer Outcome Not Healed -Ulcer Cleansing Rinsed/ Irrigated with Saline -Foul Odor after Cleansing No -Bioengineered Tissue Yes -Type of bioengineered Tissue Apligraf -Expiration Date 08/09/18 -Product Lot Number [id number] -Percent Used 100 -Saline Lot Number [id number] -Bleeding Controlled with Pressure -Other 60% debrided. -Treatment Response Procedure Tolerated Well #4 Left LATERAL calf -Time 10:40 -Correct Patient Yes -Correct Side, Site, Position Yes -Correct Procedure Yes -Procedure Performed Yes -Type of Procedure Debridement -Clinical Debridement Subcutaneous -Post Debridement Size (cm) - Length 0.9 -Post Debridement Size (cm) - Width 2.3 -Post Debridement Size (cm) - Depth 0.1 -Total Square Cm 2.07 -Wound/Ulcer Outcome Not Healed -Ulcer Cleansing Rinsed/ Irrigated with Saline -Foul Odor after Cleansing No -Bioengineered Tissue No -Bleeding Controlled with Pressure -Treatment Response Procedure Tolerated Well #3 RIGHT POSTERIOR LATERAL LE CLUSTER -Time 10:40 -Correct Patient Yes -Correct Side, Site, Position Yes -Correct Procedure Yes -Procedure Performed Yes -Type of Procedure Debridement -Clinical Debridement Subcutaneous -Post Debridement Size (cm) - Length 2.4 -Post Debridement Size (cm) - Width 2.9 -Post Debridement Size (cm) - Depth 0.1 -Total Square Cm 6.96 -Wound/Ulcer Outcome Not Healed -Ulcer Cleansing Rinsed/ Irrigated with Saline -Foul Odor after Cleansing No -Bioengineered Tissue Yes -Type of bioengineered Tissue Apligraf -Expiration Date 08/09/18 -Product Lot Number [id number] -Bleeding Controlled with Pressure -Treatment Response Procedure Tolerated Well Pain Scale: 0-10 Numeric Is Patient Pain Free? Yes Wound debrided: lateral Laterality: Left Type of Debridement: Excisional debridement Anesthesia Used: 4% Lidocaine Solution Depth: in the subcutaneous layer Percentage of wound debrided: 100 Instrument Used: #15 blade Tissue Removed: fibrous, devitalized subcutaneous, biofilm, slough Severity: Fat Layer Exposed Amount of bleeding with debridement: Mild Bleeding Controlled with: Pressure Patient tolerated procedure well - Additional Wound Wound debrided: anterior leg Laterality: Right Type of Debridement: Excisional debridement Anesthesia Used: 4% Lidocaine Solution Depth: in the subcutaneous layer Percentage of wound debrided: 60 Instrument Used: #15 blade Tissue Removed: fibrous, devitalized subcutaneous, biofilm, slough Severity: Fat Layer Exposed Amount of bleeding with debridement: Mild Bleeding Controlled with: Pressure Patient tolerated procedure: Patient tolerated procedure well - Additional Wound Wound debrided: posterior leg Laterality: Right Type of Debridement: Excisional debridement Anesthesia Used: 4% Lidocaine Solution Depth: in the subcutaneous layer Percentage of wound debrided: 60 Instrument Used: #15 blade Tissue Removed: fibrous, devitalized subcutaneous, biofilm, slough Severity: Fat Layer Exposed Amount of bleeding with debridement: Mild Bleeding Controlled with: Pressure Patient tolerated procedure: Patient tolerated procedure well - Additional Wound Wound debrided: medial leg Laterality: Right Type of Debridement: Excisional debridement Anesthesia Used: 4% Lidocaine Solution Depth: in the subcutaneous layer Percentage of wound debrided: 60 Instrument Used: #15 blade Tissue Removed: fibrous, devitalized subcutaneous, biofilm, slough Severity: Fat Layer Exposed Amount of bleeding with debridement: Mild Bleeding Controlled with: Pressure Patient tolerated procedure: Patient tolerated procedure well - Additional Wound Wound debrided: lateral leg Laterality: Right Type of Debridement: Excisional debridement Anesthesia Used: 4% Lidocaine Solution Depth: in the subcutaneous layer Percentage of wound debrided: 60 Instrument Used: #15 blade Tissue Removed: fibrous, devitalized subcutaneous, biofilm, slough Severity: Fat Layer Exposed Amount of bleeding with debridement: Mild Bleeding Controlled with: Pressure Patient tolerated procedure: Patient tolerated procedure well Assessment/Plan Active Problems (Last Updated 08/01/18 @ 08:19 by Cammy Altamirano) Calciphylaxis (Chronic) Ulcer of left lower extremity with fat layer exposed (Chronic) Ulcer of right lower extremity with fat layer exposed (Chronic) Localized edema (Chronic) Assessment: Right and left leg ulcers with fat layer exposed, chronic and noninfected. Delayed healing. venous insufficiency. Malnutrition suspected. Lower extremity pain. Multiple comorbidities noted. Calciphylaxis Plan: She was evaluated today and her care plan was discussed. She underwent a recent surgical debridement in the operating room with a versa jet and advanced wound care product, amnio fill was applied. To continue every other day dressing changes with Lacey to the left lower extremity. Subcutaneous excisional debridement was performed to bilateral lower extremities as noted in the clinical panel. She has been approved for 1 additional advanced wound care product, Apligraf, in the clinical setting. This was applied today according to standard protocol after verbal consent. To keep clean and dry and intact until follow-up next week. This was secured in place with Steri-Strips and wound veil. I recommend continued serial application of advanced wound care products and will see if she is approved for epi fix next week for the right and the left legs. She had a follow up with Dr. Pelaez for evaluation of her arterial Doppler exam which appeared to have distal perfusion. A biopsy of the leg skin was previously obtained and the results were reviewed today and will be placed in her chart. I reiterated the importance of taking pressure off of these wound sites. She was told by her doctor to stop taking glucerna as it had too much calcium. To only take nutritional supplementation but do not have additional calcium in them. He has completed a course of sodium thiosulfate for treatment of calciphylaxis as prescribed. She will continue on a low-dose prednisone and further calciphylaxis for sarcoidosis workup with her box nailer, Dr. Almonte. It is also noted she is going to schedule for a lung biopsy for workup of sarcoidosis nodule versus other mass growth after September. I answered all of her questions. To return to the wound healing center 1 week or call sooner if there are any questions or concerns.
[2018-08-08 09:52] VITALS: BP 132/77; PULSE 102; RESP 16; TEMP 35.7; BMI 35.4
--- NOTE | 2018-08-08 10:42 | PCM.WC.PN ---
(1) Ulcer of right lower extremity with fat layer exposed Status: Chronic Current Visit: Yes Code(s): L97.912 - Non-pressure chronic ulcer of unspecified part of right lower leg with fat layer exposed (2) Ulcer of left lower extremity with fat layer exposed Status: Chronic Current Visit: Yes Code(s): L97.922 - Non-pressure chronic ulcer of unspecified part of left lower leg with fat layer exposed (3) Calciphylaxis Status: Chronic Current Visit: Yes Code(s): E83.59 - Other disorders of calcium metabolism (4) Localized edema Status: Chronic Current Visit: Yes Code(s): R60.0 - Localized edema Type of Wound Date of Service: 08/08/18 Chief Complaint: Ulcers bilateral legs History of Wound: Di is a 72 year old female that returns for follow up of bilateral leg ulcers. She had several theraskin and Apligraf applications applied in the clinical setting. She had a previous versa jet debridement with serial amnio fill, advanced wound care product, application in the operating room this past week. She denies pain, fever, chill, nausea, vomiting. She has been compliant with every other day Lacey applications this past week the left leg and has left the right Apligraf intact. She denies recent illness. She did follow-up with Dr. Almonte, her group product manager who has reviewed her recent laboratory work . Progress of Wound: Improving - Physical Exam Vital Signs Temp Pulse Resp BP 96.2 F L 102 H 16 132/77 H 08/08/18 09:52 08/08/18 09:52 08/08/18 09:52 08/08/18 09:52 General: Alert, Oriented x3, Cooperative Extremities: No cyanosis, Capillary Refill Less than 3 Seconds, No Calf Tenderness - Negative Kimberly and Layton sign bilateral, Diminished Peripheral Pulses, Edema - Controlled bilateral lower extremities Skin: Ulcer/ Wound - No purulence, erythema, streaking, odor, or infection. Peripheral skin is hairless and atrophic. The Apligraf is incorporating well to the right lower extremity ulcer sites that was applied last week. Continued peripheral epithelialization is noted on the left and right ulcers Wound Measurements and Assessment WC - Nurse 1 - General Ulcer Measurement Start: 08/01/18 10:01 Freq: Status: Active Protocol: Activity Type Activity Date Activity User E-Sign Co-Sign Detail Recorded Client Recorded Date Recorded By Document 08/08/18 09:52 BJ [id number] 08/08/18 09:53 08/08/18 09:52 Wound Center Nurse 1 [Ulcer Assessment] #4 Left LATERAL calf -Combined with other wound No -Current Size (cm) - Length 0.6 -Current Size (cm) - Width 0.8 -Current Size (cm) - Depth 0.1 -Total Square Cm 0.48 -Photo Taken No -Epithelialization Medium 34-66% -Tunneling No -Undermining/Tunneling No -Circular Undermining No -Exudate Amt Small (1-33%) -Exudate Type Serosanguineous -Wound Margin Flat & Intact -Granulation Amt Large (67-100%) -Granulation Quality Red -Slough/Fibrin Yes -Necrosis Amt Small (1-33%) -Necrotic Tissue Type Adherent Slough -Structure Exposed N/A -Texture (Gabriella-wound Skin Appearance) Assessed -Moisture (Gabriella-wound Skin Appearance Assessed ) Dry/Scaly -Color (Gabriella-wound Skin Appearance) Assessed -Temperature (Gabriella-wound Skin No Abnormality Appearance) (Pt Warm) -Tenderness on Palpation (Gabriella-wound No Skin Appearance) -Ulcer Cleansing Rinsed/ Irrigated with Saline -Foul Odor after Cleansing No -Anesthetic Used 4% Lidocaine Solution [Edema Assessment] -Lower Limb Edema Present Yes -Right Calf (cm) 30.9 -Right Ankle (cm) 19.7 -Left Calf (cm) 30.0 -Left Ankle (cm) 19.0 Musculoskeletal: No Tenderness to Palpation of Joints or Extremities, Muscle Wasting Neurological: Sensory exam intact to light touch and pain Psych/Mental Status: Normal Affect, Appropriate Debridement Note Post-Debridement Measurements/Treatment WC - Nurse 2 - General Ulcer CM Notes Start: 08/01/18 10:01 Freq: Status: Active Protocol: Activity Type Activity Date Activity User E-Sign Co-Sign Detail Recorded Client Recorded Date Recorded By Document 08/01/18 10:35 BJ [id number] 08/01/18 10:44 08/01/18 10:35 Wound Center Nurse 2 #8 RIGHT POSTERIOR CALF -Time 10:35 -Correct Patient Yes -Correct Side, Site, Position Yes -Correct Procedure Yes -Procedure Performed Yes -Type of Procedure Debridement -Clinical Debridement Subcutaneous -Post Debridement Size (cm) - Length 10.6 -Post Debridement Size (cm) - Width 1.6 -Post Debridement Size (cm) - Depth 0.1 -Total Square Cm 16.96 -Wound/Ulcer Outcome Not Healed -Ulcer Cleansing Rinsed/ Irrigated with Saline -Foul Odor after Cleansing No -Bioengineered Tissue Yes -Type of bioengineered Tissue Apligraf -Expiration Date 08/09/18 -Product Lot Number [id number] -Percent Used 100 -Saline Lot Number [id number] -Bleeding Controlled with Pressure -Other 60% debrided -Treatment Response Procedure Tolerated Well #7 right anterior proximal LE -Time 10:36 -Correct Patient No -Correct Side, Site, Position No -Correct Procedure No -Procedure Performed No -Post Debridement Size (cm) - Length 0 -Post Debridement Size (cm) - Width 0 -Post Debridement Size (cm) - Depth 0 -Total Square Cm 0 -Wound/Ulcer Outcome Healed- Epithelialized -Ulcer Cleansing Rinsed/ Irrigated with Saline -Foul Odor after Cleansing No -Bioengineered Tissue No -Expiration Date 08/09/18 -Product Lot Number [id number] -Percent Used 100 -Saline Lot Number [id number] -Treatment Response Procedure Tolerated Well #6 LEFT MEDIAL SUPERIOR LEG -Time 10:37 -Correct Patient No -Correct Side, Site, Position No -Correct Procedure No -Procedure Performed No -Type of Procedure Debridement -Clinical Debridement Subcutaneous -Post Debridement Size (cm) - Length 0 -Post Debridement Size (cm) - Width 0 -Post Debridement Size (cm) - Depth 0 -Total Square Cm 0 -Wound/Ulcer Outcome Healed- Epithelialized -Ulcer Cleansing Rinsed/ Irrigated with Saline -Foul Odor after Cleansing No -Bioengineered Tissue No -Bleeding Controlled with NA -Treatment Response Procedure Tolerated Well #5 RIGHT MEDIAL CALF -Time 10:38 -Correct Patient Yes -Correct Side, Site, Position Yes -Correct Procedure Yes -Procedure Performed Yes -Type of Procedure Debridement -Clinical Debridement Subcutaneous -Post Debridement Size (cm) - Length 5.6 -Post Debridement Size (cm) - Width 1.1 -Post Debridement Size (cm) - Depth 0.1 -Total Square Cm 6.16 -Wound/Ulcer Outcome Not Healed -Ulcer Cleansing Rinsed/ Irrigated with Saline -Foul Odor after Cleansing No -Bioengineered Tissue Yes -Type of bioengineered Tissue Apligraf -Expiration Date 08/09/18 -Product Lot Number [id number] -Percent Used 100 -Saline Lot Number [id number] -Bleeding Controlled with Pressure -Other 60% debrided. -Treatment Response Procedure Tolerated Well #4 Left LATERAL calf -Time 10:40 -Correct Patient Yes -Correct Side, Site, Position Yes -Correct Procedure Yes -Procedure Performed Yes -Type of Procedure Debridement -Clinical Debridement Subcutaneous -Post Debridement Size (cm) - Length 0.9 -Post Debridement Size (cm) - Width 2.3 -Post Debridement Size (cm) - Depth 0.1 -Total Square Cm 2.07 -Wound/Ulcer Outcome Not Healed -Ulcer Cleansing Rinsed/ Irrigated with Saline -Foul Odor after Cleansing No -Bioengineered Tissue No -Bleeding Controlled with Pressure -Treatment Response Procedure Tolerated Well #3 RIGHT POSTERIOR LATERAL LE CLUSTER -Time 10:40 -Correct Patient Yes -Correct Side, Site, Position Yes -Correct Procedure Yes -Procedure Performed Yes -Type of Procedure Debridement -Clinical Debridement Subcutaneous -Post Debridement Size (cm) - Length 2.4 -Post Debridement Size (cm) - Width 2.9 -Post Debridement Size (cm) - Depth 0.1 -Total Square Cm 6.96 -Wound/Ulcer Outcome Not Healed -Ulcer Cleansing Rinsed/ Irrigated with Saline -Foul Odor after Cleansing No -Bioengineered Tissue Yes -Type of bioengineered Tissue Apligraf -Expiration Date 08/09/18 -Product Lot Number [id number] -Bleeding Controlled with Pressure -Treatment Response Procedure Tolerated Well Pain Scale: 0-10 Numeric Is Patient Pain Free? Yes Wound debrided: posterior leg Laterality: Right Type of Debridement: Excisional debridement Anesthesia Used: 4% Lidocaine Solution Depth: in the subcutaneous layer Percentage of wound debrided: 100 Instrument Used: #15 blade Tissue Removed: fibrous, devitalized subcutaneous, biofilm, slough Severity: Fat Layer Exposed Amount of bleeding with debridement: Mild Bleeding Controlled with: Pressure Patient tolerated procedure well - Additional Wound Wound debrided: lateral leg Laterality: Left Type of Debridement: Excisional debridement Anesthesia Used: 4% Lidocaine Solution Depth: in the subcutaneous layer Percentage of wound debrided: 100 Instrument Used: #15 blade Tissue Removed: fibrous, devitalized subcutaneous, biofilm, slough Severity: Fat Layer Exposed Amount of bleeding with debridement: Mild Bleeding Controlled with: Pressure Patient tolerated procedure: Patient tolerated procedure well Assessment/Plan Active Problems (Last Reviewed 08/08/18 @ 08:27 by Coleen Soto NP-C) Calciphylaxis (Chronic) Ulcer of left lower extremity with fat layer exposed (Chronic) Ulcer of right lower extremity with fat layer exposed (Chronic) Localized edema (Chronic) Assessment: Right and left leg ulcers with fat layer exposed, chronic and noninfected. Delayed healing. venous insufficiency. Malnutrition suspected. Lower extremity pain. Multiple comorbidities noted. Calciphylaxis Plan: She was evaluated today and her care plan was discussed. Subcutaneous excisional debridement was performed to the posterior right leg and lateral left leg ulcer sites as noted in the clinical panel. The remaining Apligraf that was applied last week to the other right leg ulcer sites were left intact with wound veil and Steri-Strips. She is approved for application of advanced wound care product, epi fix today. The indications plan application and anticipated healing and management were discussed. This was applied according to standard protocol after verbal consent was obtained to the right posterior leg and the left lateral leg. She tolerated this well. To keep clean and dry and intact until follow-up next week. This was secured in place with Steri-Strips and wound veil. I recommend continued serial application of advanced wound care products and will see if she is approved for epi fix next week for the right and the left legs. She had a follow up with Dr. Pelaez for evaluation of her arterial Doppler exam which appeared to have distal perfusion. A biopsy of the leg skin was previously obtained and the results were reviewed today and will be placed in her chart. I reiterated the importance of taking pressure off of these wound sites. She was told by her doctor to stop taking glucerna as it had too much calcium. To only take nutritional supplementation but do not have additional calcium in them. He has completed a course of sodium thiosulfate for treatment of calciphylaxis as prescribed. She will continue on a low-dose prednisone and further calciphylaxis for sarcoidosis workup with her group product manager, Dr. Almonte. It is also noted she is going to schedule for a lung biopsy for workup of sarcoidosis nodule versus other mass growth after September. I answered all of her questions. To return to the wound healing center 1 week or call sooner if there are any questions or concerns.
[2018-08-15 09:58] VITALS: BP 130/87; PULSE 91; RESP 16; TEMP 35.9; BMI 35.4
--- NOTE | 2018-08-15 11:08 | PN.PCM_ITS ---
(1) Ulcer of right lower extremity with fat layer exposed Status: Chronic Current Visit: Yes Code(s): L97.912 - Non-pressure chronic ulcer of unspecified part of right lower leg with fat layer exposed (2) Ulcer of left lower extremity with fat layer exposed Status: Chronic Current Visit: Yes Code(s): L97.922 - Non-pressure chronic ulcer of unspecified part of left lower leg with fat layer exposed (3) Calciphylaxis Status: Chronic Current Visit: Yes Code(s): E83.59 - Other disorders of calcium metabolism (4) Localized edema Status: Chronic Current Visit: Yes Code(s): R60.0 - Localized edema Type of Wound Date of Service: 08/15/18 Chief Complaint: Ulcers bilateral legs History of Wound: Di is a 72 year old female that returns for follow up of bilateral leg ulcers. She had several theraskin and Apligraf applications applied in the clinical setting. She had a previous versa jet debridement with serial amnio fill, advanced wound care product, application in the operating room this past week. She denies pain, fever, chill, nausea, vomiting. She has been compliant with every other day Lacey applications this past week the left leg and has left the right Apligraf intact. She denies recent illness. She has been treated medically for calciphylaxis. Progress of Wound: Improving - Physical Exam Vital Signs Temp Pulse Resp BP 96.6 F L 91 16 130/87 H 08/15/18 09:58 08/15/18 09:58 08/15/18 09:58 08/15/18 09:58 General: Alert, Oriented x3, Cooperative Extremities: No cyanosis, Capillary Refill Less than 3 Seconds, No Calf Tenderness - negative pj and mehta signs bilateral, Edema - mild bilateral lower extremities, Tenderness Skin: Ulcer/ Wound - no purulence, no erythema, no streaking, no odor, no infection, no necrosis bilateral. continued peripheral epithelialization noted to all sites, - - peripheral skin is hairless and atrophic Wound Measurements and Assessment WC - Nurse 1 - General Ulcer Measurement Start: 08/01/18 10:01 Freq: Status: Active Protocol: Activity Type Activity Date Activity User E-Sign Co-Sign Detail Recorded Client Recorded Date Recorded By Document 08/15/18 09:58 BJ [id number] 11/21/18 10:10 JF 08/15/18 09:58 Wound Center Nurse 1 [Ulcer Assessment] #8 RIGHT POSTERIOR CALF -Combined with other wound No -Current Size (cm) - Length 9.6 -Current Size (cm) - Width 0.7 -Current Size (cm) - Depth 0.1 -Total Square Cm 6.72 -Photo Taken No -Epithelialization None Present -Tunneling No -Undermining/Tunneling No -Exudate Amt Small (1-33%) -Exudate Type Serosanguineous -Wound Margin Distinct, Outline Attached -Granulation Amt Small (1-33%) -Granulation Quality [place] -Slough/Fibrin Yes -Necrosis Amt Large (67-100%) -Necrotic Tissue Type Adherent Slough -Texture (Gabriella-wound Skin Appearance) Scarring -Moisture (Gabriella-wound Skin Appearance Assessed ) -Color (Gabriella-wound Skin Appearance) Assessed -Temperature (Gabriella-wound Skin No Abnormality Appearance) (Pt Warm) -Tenderness on Palpation (Gabriella-wound No Skin Appearance) -Ulcer Cleansing Wound Cleanser -Foul Odor after Cleansing No -Anesthetic Used 5% Lidocaine Gel #5 RIGHT MEDIAL CALF -Combined with other wound No -Current Size (cm) - Length 1.5 -Current Size (cm) - Width 2.3 -Current Size (cm) - Depth 0.1 -Total Square Cm 3.45 -Photo Taken No -Epithelialization None Present -Tunneling No -Undermining/Tunneling No -Circular Undermining No -Exudate Amt Small (1-33%) -Exudate Type Serosanguineous -Wound Margin Distinct, Outline Attached -Granulation Amt Large (67-100%) -Granulation Quality [place] -Slough/Fibrin Yes -Necrosis Amt Small (1-33%) -Necrotic Tissue Type Adherent Slough -Texture (Gabriella-wound Skin Appearance) Scarring -Moisture (Gabriella-wound Skin Appearance Assessed ) -Color (Gabriella-wound Skin Appearance) Assessed -Temperature (Gabriella-wound Skin No Abnormality Appearance) (Pt Warm) -Tenderness on Palpation (Gabriella-wound No Skin Appearance) -Ulcer Cleansing Wound Cleanser -Foul Odor after Cleansing No -Anesthetic Used 5% Lidocaine Gel #4 Left LATERAL calf -Combined with other wound No -Current Size (cm) - Length 1 -Current Size (cm) - Width 0.5 -Current Size (cm) - Depth 0.1 -Total Square Cm 0.5 -Photo Taken No -Epithelialization None Present -Tunneling No -Undermining/Tunneling No -Circular Undermining No -Exudate Amt None Present (0 %) -Wound Margin Distinct, Outline Attached -Granulation Amt None Present (0 %) -Slough/Fibrin Yes -Necrosis Amt Large (67-100%) -Necrotic Tissue Type Adherent Slough -Texture (Gabriella-wound Skin Appearance) Scarring -Moisture (Gabriella-wound Skin Appearance Assessed ) -Color (Gabriella-wound Skin Appearance) Assessed -Temperature (Gabriella-wound Skin No Abnormality Appearance) (Pt Warm) -Tenderness on Palpation (Gabriella-wound No Skin Appearance) -Ulcer Cleansing Wound Cleanser -Foul Odor after Cleansing No -Anesthetic Used 5% Lidocaine Gel #3 RIGHT POSTERIOR LATERAL LE CLUSTER -Combined with other wound No -Current Size (cm) - Length 2.2 -Current Size (cm) - Width 3.4 -Current Size (cm) - Depth 0.1 -Total Square Cm 7.48 -Photo Taken No -Epithelialization None Present -Tunneling No -Undermining/Tunneling No -Circular Undermining No -Exudate Amt Small (1-33%) -Exudate Type Serosanguineous -Wound Margin Distinct, Outline Attached -Granulation Amt Small (1-33%) -Granulation Quality Red -Slough/Fibrin Yes -Necrosis Amt Large (67-100%) -Necrotic Tissue Type Adherent Slough -Texture (Gabriella-wound Skin Appearance) Scarring -Moisture (Gabriella-wound Skin Appearance Assessed ) -Color (Gabriella-wound Skin Appearance) Assessed -Temperature (Gabriella-wound Skin No Abnormality Appearance) (Pt Warm) -Tenderness on Palpation (Gabriella-wound No Skin Appearance) -Ulcer Cleansing Wound Cleanser -Foul Odor after Cleansing No -Anesthetic Used 5% Lidocaine Gel [Edema Assessment] -Lower Limb Edema Present No -Right Calf (cm) 32.3 -Right Ankle (cm) 19.7 -Left Calf (cm) 29.9 -Left Ankle (cm) 19 WC - Nurse 2 - General Ulcer CM Notes Start: 08/01/18 10:01 Freq: Status: Active Protocol: Activity Type Activity Date Activity User E-Sign Co-Sign Detail Recorded Client Recorded Date Recorded By Document 08/15/18 10:42 BJ [id number] 08/15/18 10:51 JF 08/15/18 10:42 Wound Center Nurse 2 [Procedure/Treatment] #8 RIGHT POSTERIOR CALF -Time 10:45 -Correct Patient Yes -Correct Side, Site, Position Yes -Correct Procedure Yes -Procedure Performed Yes -Type of Procedure Debridement -Clinical Debridement Subcutaneous -Post Debridement Size (cm) - Length 2.3 -Post Debridement Size (cm) - Width 3.5 -Post Debridement Size (cm) - Depth 0.1 -Total Square Cm 8.05 -Wound/Ulcer Outcome Not Healed -Ulcer Cleansing Rinsed/ Irrigated with Saline -Foul Odor after Cleansing No -Bioengineered Tissue Yes -Type of bioengineered Tissue EPIFIX -Expiration Date 04/25/23 -Product Lot Number [id number] -Percent Used 100 -Bleeding Controlled with Pressure -Treatment Response Procedure Tolerated Well #5 RIGHT MEDIAL CALF -Time 10:46 -Correct Patient Yes -Correct Side, Site, Position Yes -Correct Procedure Yes -Procedure Performed Yes -Type of Procedure Debridement -Clinical Debridement Subcutaneous -Post Debridement Size (cm) - Length 1.5 -Post Debridement Size (cm) - Width 2.4 -Post Debridement Size (cm) - Depth 0.1 -Total Square Cm 3.60 -Wound/Ulcer Outcome Not Healed -Ulcer Cleansing Rinsed/ Irrigated with Saline -Foul Odor after Cleansing No -Bioengineered Tissue No -Bleeding Controlled with Pressure -Treatment Response Procedure Tolerated Well #4 Left LATERAL calf -Time 10:48 -Correct Patient Yes -Correct Side, Site, Position Yes -Correct Procedure Yes -Procedure Performed Yes -Type of Procedure Debridement -Clinical Debridement Subcutaneous -Post Debridement Size (cm) - Length 1 -Post Debridement Size (cm) - Width 0.6 -Post Debridement Size (cm) - Depth 0.1 -Total Square Cm 0.6 -Wound/Ulcer Outcome Not Healed -Ulcer Cleansing Rinsed/ Irrigated with Saline -Foul Odor after Cleansing No -Bioengineered Tissue Yes -Type of bioengineered Tissue EPIFIX -Expiration Date 04/25/23 -Product Lot Number [id number] -Percent Used 100 -Saline Lot Number [id number] -Bleeding Controlled with Pressure -Treatment Response Procedure Tolerated Well #3 RIGHT POSTERIOR LATERAL LE CLUSTER -Time 10:49 -Correct Patient Yes -Correct Side, Site, Position Yes -Correct Procedure Yes -Procedure Performed Yes -Type of Procedure Debridement -Clinical Debridement Subcutaneous -Post Debridement Size (cm) - Length 9.6 -Post Debridement Size (cm) - Width 0.8 -Post Debridement Size (cm) - Depth 0.1 -Total Square Cm 7.68 -Wound/Ulcer Outcome Not Healed -Ulcer Cleansing Rinsed/ Irrigated with Saline -Foul Odor after Cleansing No -Bioengineered Tissue Yes -Type of bioengineered Tissue EPIFIX -Expiration Date 04/25/23 -Product Lot Number [id number] -Percent Used 100 -Saline Lot Number [id number] -Bleeding Controlled with Pressure -Treatment Response Procedure Tolerated Well [See Physician Procedure note for Specifics] Pain Scale: 0-10 Numeric [Pain] -Is Patient Pain Free? Yes Musculoskeletal: No Tenderness to Palpation of Joints or Extremities, Muscle Wasting Neurological: Sensory exam intact to light touch and pain Psych/Mental Status: Normal Affect, Appropriate Debridement Note Post-Debridement Measurements/Treatment WC - Nurse 2 - General Ulcer CM Notes Start: 08/01/18 10:01 Freq: Status: Active Protocol: Activity Type Activity Date Activity User E-Sign Co-Sign Detail Recorded Client Recorded Date Recorded By Document 08/01/18 10:35 [id number] 08/01/18 10:44 Document 08/08/18 10:41 [id number] 08/08/18 10:48 Document 08/15/18 10:42 [id number] 08/15/18 10:51 08/01/18 08/08/18 08/15/18 10:35 10:41 10:42 Wound Center Nurse 2 #8 RIGHT POSTERIOR CALF -Time 10:35 10:41 10:45 -Correct Patient Yes Yes Yes -Correct Side, Site, Position Yes Yes Yes -Correct Procedure Yes Yes Yes -Procedure Performed Yes Yes Yes -Type of Procedure Debridement Debridement Debridement -Clinical Debridement Subcutaneous Subcutaneous Subcutaneous -Post Debridement Size (cm) - Length 10.6 8.5 2.3 -Post Debridement Size (cm) - Width 1.6 1.5 3.5 -Post Debridement Size (cm) - Depth 0.1 0.1 0.1 -Total Square Cm 16.96 12.75 8.05 -Wound/Ulcer Outcome Not Healed Not Healed -Ulcer Cleansing Rinsed/ Rinsed/ Rinsed/ Irrigated with Irrigated with Irrigated with Saline Saline Saline -Foul Odor after Cleansing No No No -Bioengineered Tissue Yes No Yes -Type of bioengineered Tissue Apligraf EPIFIX -Expiration Date 08/09/18 04/25/23 -Product Lot Number [id number] -Percent Used 100 100 -Saline Lot Number [id number] -Topical Lidocaine (%) 5 -Bleeding Controlled with Pressure Pressure Pressure -Other 60% debrided -Treatment Response Procedure Procedure Procedure Tolerated Well Tolerated Well Tolerated Well #7 right anterior proximal LE -Time 10:36 -Correct Patient No -Correct Side, Site, Position No -Correct Procedure No -Procedure Performed No -Post Debridement Size (cm) - Length 0 -Post Debridement Size (cm) - Width 0 -Post Debridement Size (cm) - Depth 0 -Total Square Cm 0 -Wound/Ulcer Outcome Healed- Epithelialized -Ulcer Cleansing Rinsed/ Irrigated with Saline -Foul Odor after Cleansing No -Bioengineered Tissue No -Expiration Date 08/09/18 -Product Lot Number [id number] -Percent Used 100 -Saline Lot Number [id number] -Treatment Response Procedure Tolerated Well #6 LEFT MEDIAL SUPERIOR LEG -Time 10:37 -Correct Patient No -Correct Side, Site, Position No -Correct Procedure No -Procedure Performed No -Type of Procedure Debridement -Clinical Debridement Subcutaneous -Post Debridement Size (cm) - Length 0 -Post Debridement Size (cm) - Width 0 -Post Debridement Size (cm) - Depth 0 -Total Square Cm 0 -Wound/Ulcer Outcome Healed- Epithelialized -Ulcer Cleansing Rinsed/ Irrigated with Saline -Foul Odor after Cleansing No -Bioengineered Tissue No -Bleeding Controlled with NA -Treatment Response Procedure Tolerated Well #5 RIGHT MEDIAL CALF -Time 10:38 10:43 10:46 -Correct Patient Yes Yes Yes -Correct Side, Site, Position Yes Yes Yes -Correct Procedure Yes Yes Yes -Procedure Performed Yes Yes Yes -Type of Procedure Debridement Debridement -Clinical Debridement Subcutaneous Subcutaneous -Post Debridement Size (cm) - Length 5.6 1.5 -Post Debridement Size (cm) - Width 1.1 2.4 -Post Debridement Size (cm) - Depth 0.1 0.1 -Total Square Cm 6.16 3.60 -Wound/Ulcer Outcome Not Healed Not Healed Not Healed -Ulcer Cleansing Rinsed/ Rinsed/ Rinsed/ Irrigated with Irrigated with Irrigated with Saline Saline Saline -Foul Odor after Cleansing No No No -Bioengineered Tissue Yes No No -Type of bioengineered Tissue Apligraf -Expiration Date 08/09/18 -Product Lot Number [id number] -Percent Used 100 -Saline Lot Number [id number] -Bleeding Controlled with Pressure NA Pressure -Other 60% debrided. no debridement apligraf #5 intact covered with wound veil /steri strips -Treatment Response Procedure Procedure Procedure Tolerated Well Tolerated Well Tolerated Well #4 Left LATERAL calf -Time 10:40 10:44 10:48 -Correct Patient Yes Yes Yes -Correct Side, Site, Position Yes Yes Yes -Correct Procedure Yes Yes Yes -Procedure Performed Yes Yes Yes -Type of Procedure Debridement Debridement Debridement -Clinical Debridement Subcutaneous Subcutaneous Subcutaneous -Post Debridement Size (cm) - Length 0.9 0.7 1 -Post Debridement Size (cm) - Width 2.3 0.9 0.6 -Post Debridement Size (cm) - Depth 0.1 0.1 0.1 -Total Square Cm 2.07 0.63 0.6 -Wound/Ulcer Outcome Not Healed Not Healed Not Healed -Ulcer Cleansing Rinsed/ Rinsed/ Rinsed/ Irrigated with Irrigated with Irrigated with Saline Saline Saline -Foul Odor after Cleansing No No No -Bioengineered Tissue No Yes Yes -Type of bioengineered Tissue EPIFIX EPIFIX -Expiration Date 03/25/23 04/25/23 -Product Lot Number [id number] -Percent Used 50 100 -Saline Lot Number [id number] -Topical Lidocaine (%) 5 -Bleeding Controlled with Pressure Pressure Pressure -Treatment Response Procedure Procedure Procedure Tolerated Well Tolerated Well Tolerated Well #3 RIGHT POSTERIOR LATERAL LE CLUSTER -Time 10:40 10:45 10:49 -Correct Patient Yes Yes Yes -Correct Side, Site, Position Yes Yes Yes -Correct Procedure Yes Yes Yes -Procedure Performed Yes Yes Yes -Type of Procedure Debridement Debridement Debridement -Clinical Debridement Subcutaneous Subcutaneous Subcutaneous -Post Debridement Size (cm) - Length 2.4 1.5 9.6 -Post Debridement Size (cm) - Width 2.9 5.5 0.8 -Post Debridement Size (cm) - Depth 0.1 0.1 0.1 -Total Square Cm 6.96 8.25 7.68 -Wound/Ulcer Outcome Not Healed Not Healed Not Healed -Ulcer Cleansing Rinsed/ Rinsed/ Rinsed/ Irrigated with Irrigated with Irrigated with Saline Saline Saline -Foul Odor after Cleansing No No No -Bioengineered Tissue Yes Yes Yes -Type of bioengineered Tissue Apligraf EPIFIX EPIFIX -Expiration Date 08/09/18 03/25/23 04/25/23 -Product Lot Number [id number] -Percent Used 50 100 -Saline Lot Number [id number] -Topical Lidocaine (%) 5 -Bleeding Controlled with Pressure Pressure Pressure -Treatment Response Procedure Procedure Procedure Tolerated Well Tolerated Well Tolerated Well Pain Scale: 0-10 Numeric Is Patient Pain Free? Yes Yes Yes Wound debrided: posterior lateral Laterality: Right Type of Debridement: Excisional debridement Anesthesia Used: 4% Lidocaine Solution Depth: in the subcutaneous layer Percentage of wound debrided: 100 Instrument Used: #15 blade Tissue Removed: fibrous, devitalized subcutaneous, biofilm, slough Severity: Fat Layer Exposed Amount of bleeding with debridement: Mild Bleeding Controlled with: Pressure Patient tolerated procedure well - Additional Wound Wound debrided: posterior leg Laterality: Right Type of Debridement: Excisional debridement Depth: in the subcutaneous layer Percentage of wound debrided: 100 Instrument Used: #15 blade Tissue Removed: fibrous, devitalized subcutaneous, biofilm, slough Severity: Fat Layer Exposed Amount of bleeding with debridement: Mild Bleeding Controlled with: Pressure Patient tolerated procedure: Patient tolerated procedure well - Additional Wound Wound debrided: medial leg Laterality: Right Type of Debridement: Excisional debridement Anesthesia Used: 4% Lidocaine Solution Depth: in the subcutaneous layer Percentage of wound debrided: 100 Instrument Used: #15 blade Tissue Removed: fibrous, devitalized subcutaneous, biofilm, slough Severity: Fat Layer Exposed Amount of bleeding with debridement: Mild Bleeding Controlled with: Pressure Patient tolerated procedure: Patient tolerated procedure well - Additional Wound Wound debrided: lateral leg Laterality: Left Type of Debridement: Excisional debridement Anesthesia Used: 4% Lidocaine Solution Depth: in the subcutaneous layer Percentage of wound debrided: 100 Instrument Used: #15 blade Tissue Removed: fibrous, devitalized subcutaneous, biofilm, slough Severity: Fat Layer Exposed Amount of bleeding with debridement: Mild Bleeding Controlled with: Pressure Patient tolerated procedure: Patient tolerated procedure well Assessment/Plan Active Problems (Last Reviewed 08/08/18 @ 08:27 by Coleen Soto NP-C) Calciphylaxis (Chronic) Ulcer of left lower extremity with fat layer exposed (Chronic) Ulcer of right lower extremity with fat layer exposed (Chronic) Localized edema (Chronic) Assessment: Right and left leg ulcers with fat layer exposed, chronic and noninfected. Delayed healing. venous insufficiency. Malnutrition suspected. Lower extremity pain. Multiple comorbidities noted. Calciphylaxis Plan: She was evaluated today and her care plan was discussed. Subcutaneous excisional debridement was performed to the posterior right leg and lateral left leg ulcer sites as noted in the clinical panel. verbal consent was obtained for advanced wound care product epifix and this was applied to b ilateral leg ulcer sites. She is approved for application of advanced wound care product, epi fix today. The indications plan application and anticipated healing and management were discussed. This was applied according to standard protocol after verbal consent was obtained to the right posterior leg and the left lateral leg. She tolerated this well. To keep clean and dry and intact until follow-up next week. This was secured in place with Steri-Strips and wound veil. Wound veil covered medial right leg ulcer only. I recommend continued serial application of advanced wound care products and will see if she is approved for epi fix next week for the right and the left legs. She had a follow up with Dr. Pelaez for evaluation of her arterial Doppler exam which appeared to have distal perfusion. A biopsy of the leg skin was previously obtained and the results were reviewed today and will be placed in her chart. I reiterated the importance of taking pressure off of these wound sites. She was told by her doctor to stop taking glucerna as it had too much calcium. To only take nutritional supplementation but do not have additional calcium in them. He has completed a course of sodium thiosulfate for treatment of calciphylaxis as prescribed. She will continue on a low-dose prednisone and further calciphylaxis for sarcoidosis workup with her electronic drafter, Dr. Almonte. It is also noted she is going to schedule for a lung biopsy for workup of sarcoidosis nodule versus other mass growth after September. I answered all of her questions. To return to the wound healing center 1 week or call sooner if there are any questions or concerns.
[2018-08-22 09:45] VITALS: BP 113/68; PULSE 80; RESP 16; TEMP 36.2; BMI 35.4
--- NOTE | 2018-08-22 11:31 | PCM.WC.PN ---
(1) Ulcer of right lower extremity with fat layer exposed Status: Chronic Current Visit: Yes Code(s): L97.912 - Non-pressure chronic ulcer of unspecified part of right lower leg with fat layer exposed (2) Ulcer of left lower extremity with fat layer exposed Status: Chronic Current Visit: Yes Code(s): L97.922 - Non-pressure chronic ulcer of unspecified part of left lower leg with fat layer exposed (3) Calciphylaxis Status: Chronic Current Visit: Yes Code(s): E83.59 - Other disorders of calcium metabolism (4) Localized edema Status: Chronic Current Visit: Yes Code(s): R60.0 - Localized edema Type of Wound Chief Complaint: Ulcers bilateral legs History of Wound: Di is a 72 year old female that returns for follow up of bilateral leg ulcers. She had several theraskin and Apligraf applications applied in the clinical setting. She had a previous versa jet debridement with serial amnio fill, advanced wound care product, application in the operating room this past week. She denies pain, fever, chill, nausea, vomiting. She has been compliant with every other day Lacey applications this past week the left leg and has left the right Apligraf intact. She denies recent illness. She has been treated medically for calciphylaxis. Progress of Wound: Improving right leg. Healed left leg - Physical Exam Vital Signs Temp Pulse Resp BP 97.1 F L 80 16 113/68 08/22/18 09:45 08/22/18 09:45 08/22/18 09:45 08/22/18 09:45 General: Alert, Oriented x3, Cooperative Extremities: No cyanosis, Capillary Refill Less than 3 Seconds, No Calf Tenderness - Negative Kimberly and Layton sign bilateral, Diminished Peripheral Pulses, Edema - Bilateral lower extremities with varicosities continued Skin: Ulcer/ Wound - No purulence, erythema, streaking, odor, or infection. The right leg ulcer sites have improved beefy red granular bases. The left leg ulcer is healed with full epithelialization noted. The peripheral skin is hairless and atrophic bilateral, - - No necrosis or eschar bilateral Wound Measurements and Assessment WC - Nurse 1 - General Ulcer Measurement Start: 08/01/18 10:01 Freq: Status: Active Protocol: Activity Type Activity Date Activity User E-Sign Co-Sign Detail Recorded Client Recorded Date Recorded By Document 08/22/18 09:45 [facility] [id number] 08/22/18 10:01 [facility] 08/22/18 09:45 Wound Center Nurse 1 [Ulcer Assessment] #8 RIGHT POSTERIOR CALF -Combined with other wound No -Current Size (cm) - Length 8 -Current Size (cm) - Width 1.1 -Current Size (cm) - Depth 0.1 -Total Square Cm 8.8 -Date of Last Picture (Recall this 08/22/18 field) -Photo Taken Yes -Epithelialization None Present -Tunneling No -Undermining/Tunneling No -Circular Undermining No -Exudate Amt Small (1-33%) -Exudate Type Serosanguineous -Wound Margin Distinct, Outline Attached -Granulation Amt Small (1-33%) -Granulation Quality [address] -Slough/Fibrin Yes -Necrosis Amt Large (67-100%) -Necrotic Tissue Type Adherent Slough -Texture (Gabriella-wound Skin Appearance) Scarring -Moisture (Gabriella-wound Skin Appearance Dry/Scaly ) -Color (Gabriella-wound Skin Appearance) Assessed -Temperature (Gabriella-wound Skin No Abnormality Appearance) (Pt Warm) -Tenderness on Palpation (Gabriella-wound No Skin Appearance) -Ulcer Cleansing Wound Cleanser -Foul Odor after Cleansing No -Anesthetic Used 4% Lidocaine Solution #5 RIGHT MEDIAL CALF -Combined with other wound No -Current Size (cm) - Length 2.4 -Current Size (cm) - Width 2.6 -Current Size (cm) - Depth 0.1 -Total Square Cm 6.24 -Date of Last Picture (Recall this 08/22/18 field) -Photo Taken Yes -Epithelialization Small 1-33% -Tunneling No -Undermining/Tunneling No -Circular Undermining No -Exudate Amt Small (1-33%) -Exudate Type Serosanguineous -Wound Margin Distinct, Outline Attached -Granulation Amt Large (67-100%) -Granulation Quality Red -Slough/Fibrin Yes -Necrosis Amt Small (1-33%) -Necrotic Tissue Type Adherent Slough -Texture (Gabriella-wound Skin Appearance) Scarring -Moisture (Gabriella-wound Skin Appearance Dry/Scaly ) -Color (Gabriella-wound Skin Appearance) Assessed -Temperature (Gabriella-wound Skin No Abnormality Appearance) (Pt Warm) -Tenderness on Palpation (Gabriella-wound No Skin Appearance) -Ulcer Cleansing Wound Cleanser -Foul Odor after Cleansing No -Anesthetic Used 4% Lidocaine Solution #4 Left LATERAL calf -Combined with other wound No -Current Size (cm) - Length 0.1 -Current Size (cm) - Width 0.1 -Current Size (cm) - Depth 0.1 -Total Square Cm 0.01 -Date of Last Picture (Recall this 08/22/18 field) -Photo Taken Yes -Epithelialization Large 67-100% -Tunneling No -Undermining/Tunneling No -Circular Undermining No -Exudate Amt Small (1-33%) -Exudate Type Serosanguineous -Wound Margin Distinct, Outline Attached -Granulation Amt None Present (0 %) -Slough/Fibrin Yes -Necrosis Amt Large (67-100%) -Necrotic Tissue Type Adherent Slough -Texture (Gabriella-wound Skin Appearance) Scarring -Moisture (Gabriella-wound Skin Appearance Dry/Scaly ) -Color (Gabriella-wound Skin Appearance) Assessed -Temperature (Gabriella-wound Skin No Abnormality Appearance) (Pt Warm) -Tenderness on Palpation (Gabriella-wound No Skin Appearance) -Ulcer Cleansing Wound Cleanser -Foul Odor after Cleansing No -Anesthetic Used 4% Lidocaine Solution #3 RIGHT POSTERIOR LATERAL LE CLUSTER -Combined with other wound No -Current Size (cm) - Length 5 -Current Size (cm) - Width 3 -Current Size (cm) - Depth 0.1 -Total Square Cm 15 -Date of Last Picture (Recall this 08/22/18 field) -Photo Taken Yes -Epithelialization None Present -Tunneling No -Undermining/Tunneling No -Circular Undermining No -Exudate Amt Small (1-33%) -Exudate Type Serosanguineous -Wound Margin Distinct, Outline Attached -Granulation Amt Small (1-33%) -Granulation Quality Red -Slough/Fibrin Yes -Necrosis Amt Large (67-100%) -Necrotic Tissue Type Adherent Slough -Texture (Gabriella-wound Skin Appearance) Scarring -Moisture (Gabriella-wound Skin Appearance Dry/Scaly ) -Color (Gabriella-wound Skin Appearance) Assessed -Temperature (Gabriella-wound Skin No Abnormality Appearance) (Pt Warm) -Tenderness on Palpation (Gabriella-wound No Skin Appearance) -Ulcer Cleansing Wound Cleanser -Foul Odor after Cleansing No -Anesthetic Used 4% Lidocaine Solution [Edema Assessment] -Lower Limb Edema Present No -Right Calf (cm) 32.7 -Right Ankle (cm) 20.4 -Left Calf (cm) 31.5 -Left Ankle (cm) 21 WC - Nurse 2 - General Ulcer CM Notes Start: 08/01/18 10:01 Freq: Status: Active Protocol: Activity Type Activity Date Activity User E-Sign Co-Sign Detail Recorded Client Recorded Date Recorded By Document 08/22/18 10:18 [facility]J [id number] 08/22/18 10:25 BJ 08/22/18 10:18 Wound Center Nurse 2 [Procedure/Treatment] #8 RIGHT POSTERIOR CALF -Time 10:18 -Correct Patient Yes -Correct Side, Site, Position Yes -Correct Procedure Yes -Procedure Performed Yes -Type of Procedure Debridement -Clinical Debridement Subcutaneous -Post Debridement Size (cm) - Length 7 -Post Debridement Size (cm) - Width 1.2 -Post Debridement Size (cm) - Depth 0.1 -Total Square Cm 8.4 -Wound/Ulcer Outcome Not Healed -Ulcer Cleansing Rinsed/ Irrigated with Saline -Foul Odor after Cleansing No -Bioengineered Tissue Yes -Type of bioengineered Tissue EPIFIX -Expiration Date 04/25/23 -Product Lot Number [id number] -Percent Used 100 -Saline Lot Number [id number] -Bleeding Controlled with Pressure -Treatment Response Procedure Tolerated Well #5 RIGHT MEDIAL CALF -Time 10:19 -Correct Patient Yes -Correct Side, Site, Position Yes -Correct Procedure Yes -Procedure Performed Yes -Type of Procedure Debridement -Clinical Debridement Subcutaneous -Post Debridement Size (cm) - Length 2.5 -Post Debridement Size (cm) - Width 2.6 -Post Debridement Size (cm) - Depth 0.1 -Total Square Cm 6.50 -Wound/Ulcer Outcome Not Healed -Ulcer Cleansing Rinsed/ Irrigated with Saline -Foul Odor after Cleansing No -Bioengineered Tissue Yes -Type of bioengineered Tissue EPIFIX -Expiration Date 04/25/23 -Product Lot Number [id number] -Percent Used 100 -Saline Lot Number [id number] -Bleeding Controlled with Pressure -Treatment Response Procedure Tolerated Well #4 Left LATERAL calf -Correct Patient No -Correct Side, Site, Position No -Correct Procedure No -Procedure Performed No -Post Debridement Size (cm) - Length 0 -Post Debridement Size (cm) - Width 0 -Post Debridement Size (cm) - Depth 0 -Total Square Cm 0 -Wound/Ulcer Outcome Healed- Epithelialized #3 RIGHT POSTERIOR LATERAL LE CLUSTER -Time 10:20 -Correct Patient Yes -Correct Side, Site, Position Yes -Correct Procedure Yes -Procedure Performed Yes -Type of Procedure Debridement -Clinical Debridement Subcutaneous -Post Debridement Size (cm) - Length 5.1 -Post Debridement Size (cm) - Width 3 -Post Debridement Size (cm) - Depth 0.1 -Total Square Cm 15.3 -Wound/Ulcer Outcome Not Healed -Ulcer Cleansing Rinsed/ Irrigated with Saline -Foul Odor after Cleansing No -Bioengineered Tissue Yes -Type of bioengineered Tissue EPIFIX -Expiration Date 04/25/23 -Product Lot Number [id number] -Percent Used 100 -Saline Lot Number [id number] -Bleeding Controlled with Pressure -Treatment Response Procedure Tolerated Well [See Physician Procedure note for Specifics] Pain Scale: 0-10 Numeric [Pain] -Is Patient Pain Free? Yes Musculoskeletal: No Tenderness to Palpation of Joints or Extremities, Muscle Wasting Neurological: Sensory exam intact to light touch and pain Psych/Mental Status: Normal Affect, Appropriate Debridement Note Post-Debridement Measurements/Treatment WC - Nurse 2 - General Ulcer CM Notes Start: 08/01/18 10:01 Freq: Status: Active Protocol: Activity Type Activity Date Activity User E-Sign Co-Sign Detail Recorded Client Recorded Date Recorded By Document 08/01/18 10:35 [id number] 08/01/18 10:44 Document 08/08/18 10:41 [id number] 08/08/18 10:48 Document 08/15/18 10:42 [id number] 08/15/18 10:51 Document 08/22/18 10:18 [id number] 08/22/18 10:25 08/01/18 08/08/18 08/15/18 10:35 10:41 10:42 Wound Center Nurse 2 #8 RIGHT POSTERIOR CALF -Time 10:35 10:41 10:45 -Correct Patient Yes Yes Yes -Correct Side, Site, Position Yes Yes Yes -Correct Procedure Yes Yes Yes -Procedure Performed Yes Yes Yes -Type of Procedure Debridement Debridement Debridement -Clinical Debridement Subcutaneous Subcutaneous Subcutaneous -Post Debridement Size (cm) - Length 10.6 8.5 2.3 -Post Debridement Size (cm) - Width 1.6 1.5 3.5 -Post Debridement Size (cm) - Depth 0.1 0.1 0.1 -Total Square Cm 16.96 12.75 8.05 -Wound/Ulcer Outcome Not Healed Not Healed -Ulcer Cleansing Rinsed/ Rinsed/ Rinsed/ Irrigated with Irrigated with Irrigated with Saline Saline Saline -Foul Odor after Cleansing No No No -Bioengineered Tissue Yes No Yes -Type of bioengineered Tissue Apligraf EPIFIX -Expiration Date 08/09/18 04/25/23 -Product Lot Number [id number] -Percent Used 100 100 -Saline Lot Number [id number] -Topical Lidocaine (%) 5 -Bleeding Controlled with Pressure Pressure Pressure -Other 60% debrided -Treatment Response Procedure Procedure Procedure Tolerated Well Tolerated Well Tolerated Well #7 right anterior proximal LE -Time 10:36 -Correct Patient No -Correct Side, Site, Position No -Correct Procedure No -Procedure Performed No -Post Debridement Size (cm) - Length 0 -Post Debridement Size (cm) - Width 0 -Post Debridement Size (cm) - Depth 0 -Total Square Cm 0 -Wound/Ulcer Outcome Healed- Epithelialized -Ulcer Cleansing Rinsed/ Irrigated with Saline -Foul Odor after Cleansing No -Bioengineered Tissue No -Expiration Date 08/09/18 -Product Lot Number [id number] -Percent Used 100 -Saline Lot Number [id number] -Treatment Response Procedure Tolerated Well #6 LEFT MEDIAL SUPERIOR LEG -Time 10:37 -Correct Patient No -Correct Side, Site, Position No -Correct Procedure No -Procedure Performed No -Type of Procedure Debridement -Clinical Debridement Subcutaneous -Post Debridement Size (cm) - Length 0 -Post Debridement Size (cm) - Width 0 -Post Debridement Size (cm) - Depth 0 -Total Square Cm 0 -Wound/Ulcer Outcome Healed- Epithelialized -Ulcer Cleansing Rinsed/ Irrigated with Saline -Foul Odor after Cleansing No -Bioengineered Tissue No -Bleeding Controlled with NA -Treatment Response Procedure Tolerated Well #5 RIGHT MEDIAL CALF -Time 10:38 10:43 10:46 -Correct Patient Yes Yes Yes -Correct Side, Site, Position Yes Yes Yes -Correct Procedure Yes Yes Yes -Procedure Performed Yes Yes Yes -Type of Procedure Debridement Debridement -Clinical Debridement Subcutaneous Subcutaneous -Post Debridement Size (cm) - Length 5.6 1.5 -Post Debridement Size (cm) - Width 1.1 2.4 -Post Debridement Size (cm) - Depth 0.1 0.1 -Total Square Cm 6.16 3.60 -Wound/Ulcer Outcome Not Healed Not Healed Not Healed -Ulcer Cleansing Rinsed/ Rinsed/ Rinsed/ Irrigated with Irrigated with Irrigated with Saline Saline Saline -Foul Odor after Cleansing No No No -Bioengineered Tissue Yes No No -Type of bioengineered Tissue Apligraf -Expiration Date 08/09/18 -Product Lot Number [id number] -Percent Used 100 -Saline Lot Number [id number] -Bleeding Controlled with Pressure NA Pressure -Other 60% debrided. no debridement apligraf #5 intact covered with wound veil /steri strips -Treatment Response Procedure Procedure Procedure Tolerated Well Tolerated Well Tolerated Well #4 Left LATERAL calf -Time 10:40 10:44 10:48 -Correct Patient Yes Yes Yes -Correct Side, Site, Position Yes Yes Yes -Correct Procedure Yes Yes Yes -Procedure Performed Yes Yes Yes -Type of Procedure Debridement Debridement Debridement -Clinical Debridement Subcutaneous Subcutaneous Subcutaneous -Post Debridement Size (cm) - Length 0.9 0.7 1 -Post Debridement Size (cm) - Width 2.3 0.9 0.6 -Post Debridement Size (cm) - Depth 0.1 0.1 0.1 -Total Square Cm 2.07 0.63 0.6 -Wound/Ulcer Outcome Not Healed Not Healed Not Healed -Ulcer Cleansing Rinsed/ Rinsed/ Rinsed/ Irrigated with Irrigated with Irrigated with Saline Saline Saline -Foul Odor after Cleansing No No No -Bioengineered Tissue No Yes Yes -Type of bioengineered Tissue EPIFIX EPIFIX -Expiration Date 03/25/23 04/25/23 -Product Lot Number [id number] -Percent Used 50 100 -Saline Lot Number [id number] -Topical Lidocaine (%) 5 -Bleeding Controlled with Pressure Pressure Pressure -Treatment Response Procedure Procedure Procedure Tolerated Well Tolerated Well Tolerated Well #3 RIGHT POSTERIOR LATERAL LE CLUSTER -Time 10:40 10:45 10:49 -Correct Patient Yes Yes Yes -Correct Side, Site, Position Yes Yes Yes -Correct Procedure Yes Yes Yes -Procedure Performed Yes Yes Yes -Type of Procedure Debridement Debridement Debridement -Clinical Debridement Subcutaneous Subcutaneous Subcutaneous -Post Debridement Size (cm) - Length 2.4 1.5 9.6 -Post Debridement Size (cm) - Width 2.9 5.5 0.8 -Post Debridement Size (cm) - Depth 0.1 0.1 0.1 -Total Square Cm 6.96 8.25 7.68 -Wound/Ulcer Outcome Not Healed Not Healed Not Healed -Ulcer Cleansing Rinsed/ Rinsed/ Rinsed/ Irrigated with Irrigated with Irrigated with Saline Saline Saline -Foul Odor after Cleansing No No No -Bioengineered Tissue Yes Yes Yes -Type of bioengineered Tissue Apligraf EPIFIX EPIFIX -Expiration Date 08/09/18 03/25/23 04/25/23 -Product Lot Number [id number] -Percent Used 50 100 -Saline Lot Number [id number] -Topical Lidocaine (%) 5 -Bleeding Controlled with Pressure Pressure Pressure -Treatment Response Procedure Procedure Procedure Tolerated Well Tolerated Well Tolerated Well Pain Scale: 0-10 Numeric Is Patient Pain Free? Yes Yes Yes 08/22/18 10:18 Wound Center Nurse 2 #8 RIGHT POSTERIOR CALF -Time 10:18 -Correct Patient Yes -Correct Side, Site, Position Yes -Correct Procedure Yes -Procedure Performed Yes -Type of Procedure Debridement -Clinical Debridement Subcutaneous -Post Debridement Size (cm) - Length 7 -Post Debridement Size (cm) - Width 1.2 -Post Debridement Size (cm) - Depth 0.1 -Total Square Cm 8.4 -Wound/Ulcer Outcome Not Healed -Ulcer Cleansing Rinsed/ Irrigated with Saline -Foul Odor after Cleansing No -Bioengineered Tissue Yes -Type of bioengineered Tissue EPIFIX -Expiration Date 04/25/23 -Product Lot Number [id number] -Percent Used 100 -Saline Lot Number [id number] -Topical Lidocaine (%) -Bleeding Controlled with Pressure -Other -Treatment Response Procedure Tolerated Well #7 right anterior proximal LE -Time -Correct Patient -Correct Side, Site, Position -Correct Procedure -Procedure Performed -Post Debridement Size (cm) - Length -Post Debridement Size (cm) - Width -Post Debridement Size (cm) - Depth -Total Square Cm -Wound/Ulcer Outcome -Ulcer Cleansing -Foul Odor after Cleansing -Bioengineered Tissue -Expiration Date -Product Lot Number -Percent Used -Saline Lot Number -Treatment Response #6 LEFT MEDIAL SUPERIOR LEG -Time -Correct Patient -Correct Side, Site, Position -Correct Procedure -Procedure Performed -Type of Procedure -Clinical Debridement -Post Debridement Size (cm) - Length -Post Debridement Size (cm) - Width -Post Debridement Size (cm) - Depth -Total Square Cm -Wound/Ulcer Outcome -Ulcer Cleansing -Foul Odor after Cleansing -Bioengineered Tissue -Bleeding Controlled with -Treatment Response #5 RIGHT MEDIAL CALF -Time 10:19 -Correct Patient Yes -Correct Side, Site, Position Yes -Correct Procedure Yes -Procedure Performed Yes -Type of Procedure Debridement -Clinical Debridement Subcutaneous -Post Debridement Size (cm) - Length 2.5 -Post Debridement Size (cm) - Width 2.6 -Post Debridement Size (cm) - Depth 0.1 -Total Square Cm 6.50 -Wound/Ulcer Outcome Not Healed -Ulcer Cleansing Rinsed/ Irrigated with Saline -Foul Odor after Cleansing No -Bioengineered Tissue Yes -Type of bioengineered Tissue EPIFIX -Expiration Date 04/25/23 -Product Lot Number [id number] -Percent Used 100 -Saline Lot Number [id number] -Bleeding Controlled with Pressure -Other -Treatment Response Procedure Tolerated Well #4 Left LATERAL calf -Time -Correct Patient No -Correct Side, Site, Position No -Correct Procedure No -Procedure Performed No -Type of Procedure -Clinical Debridement -Post Debridement Size (cm) - Length 0 -Post Debridement Size (cm) - Width 0 -Post Debridement Size (cm) - Depth 0 -Total Square Cm 0 -Wound/Ulcer Outcome Healed- Epithelialized -Ulcer Cleansing -Foul Odor after Cleansing -Bioengineered Tissue -Type of bioengineered Tissue -Expiration Date -Product Lot Number -Percent Used -Saline Lot Number -Topical Lidocaine (%) -Bleeding Controlled with -Treatment Response #3 RIGHT POSTERIOR LATERAL LE CLUSTER -Time 10:20 -Correct Patient Yes -Correct Side, Site, Position Yes -Correct Procedure Yes -Procedure Performed Yes -Type of Procedure Debridement -Clinical Debridement Subcutaneous -Post Debridement Size (cm) - Length 5.1 -Post Debridement Size (cm) - Width 3 -Post Debridement Size (cm) - Depth 0.1 -Total Square Cm 15.3 -Wound/Ulcer Outcome Not Healed -Ulcer Cleansing Rinsed/ Irrigated with Saline -Foul Odor after Cleansing No -Bioengineered Tissue Yes -Type of bioengineered Tissue EPIFIX -Expiration Date 04/25/23 -Product Lot Number [id number] -Percent Used 100 -Saline Lot Number [id number] -Topical Lidocaine (%) -Bleeding Controlled with Pressure -Treatment Response Procedure Tolerated Well Pain Scale: 0-10 Numeric Is Patient Pain Free? Yes Wound debrided: posterior lateral leg Laterality: Right Type of Debridement: Excisional debridement Anesthesia Used: 5% Lidocaine Gel Depth: in the subcutaneous layer Percentage of wound debrided: 100 Instrument Used: #15 blade Tissue Removed: fibrous, devitalized subcutaneous, biofilm, slough Severity: Fat Layer Exposed Amount of bleeding with debridement: Mild Bleeding Controlled with: Pressure Patient tolerated procedure well - Additional Wound Wound debrided: posterior leg Laterality: Right Type of Debridement: Excisional debridement Anesthesia Used: 5% Lidocaine Gel Depth: in the subcutaneous layer Percentage of wound debrided: 100 Instrument Used: #15 blade Tissue Removed: fibrous, devitalized subcutaneous, biofilm, slough Severity: Fat Layer Exposed Amount of bleeding with debridement: Mild Bleeding Controlled with: Pressure Patient tolerated procedure: Patient tolerated procedure well - Additional Wound Wound debrided: medial leg Laterality: Right Type of Debridement: Excisional debridement Anesthesia Used: 5% Lidocaine Gel Depth: in the subcutaneous layer Percentage of wound debrided: 100 Instrument Used: #15 blade Tissue Removed: fibrous, devitalized subcutaneous, biofilm, slough Severity: Fat Layer Exposed Amount of bleeding with debridement: Mild Bleeding Controlled with: Pressure Patient tolerated procedure: Patient tolerated procedure well Assessment/Plan Active Problems (Last Reviewed 08/08/18 @ 08:27 by Coleen Soto NP-C) Calciphylaxis (Chronic) Ulcer of left lower extremity with fat layer exposed (Chronic) Ulcer of right lower extremity with fat layer exposed (Chronic) Localized edema (Chronic) Assessment: Right leg ulcers with fat layer exposed, chronic and noninfected. Left leg ulcer healed today. Delayed healing. venous insufficiency. Malnutrition suspected. Lower extremity pain. Multiple comorbidities noted. Calciphylaxis Plan: She was evaluated today and her care plan was discussed. Subcutaneous excisional debridement was performed to the right leg as noted in the clinical panel. Her left leg ulcer sites have completely healed. verbal consent was obtained for advanced wound care product epifix and this was applied to the right leg ulcer sites. She is approved for application of advanced wound care product, epi fix today. The indications plan application and anticipated healing and management were discussed. This was applied according to standard protocol after verbal consent was obtained to the right posterior leg and the left lateral leg. She tolerated this well. To keep clean and dry and intact until follow-up next week. This was secured in place with Steri-Strips and wound veil. Wound veil covered medial right leg ulcer only. I recommend continued serial application of advanced wound care products until full closure was achieved. She had a follow up with Dr. Pelaez for evaluation of her arterial Doppler exam which appeared to have distal perfusion. A biopsy of the leg skin was previously obtained and the results were reviewed today and will be placed in her chart. I reiterated the importance of taking pressure off of these wound sites. She was told by her doctor to stop taking glucerna as it had too much calcium. To only take nutritional supplementation but do not have additional calcium in them. He has completed a course of sodium thiosulfate for treatment of calciphylaxis as prescribed. 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 Almonte. It is also noted she is going to schedule for a lung biopsy for workup of sarcoidosis nodule versus other mass growth after September. I answered all of her questions. To return to the wound healing center 1 week or call sooner if there are any questions or concerns.
--- NOTE | 2018-08-22 11:34 | PN.PCM_ITS ---
(1) Ulcer of right lower extremity with fat layer exposed Status: Chronic Current Visit: Yes Code(s): L97.912 - Non-pressure chronic ulcer of unspecified part of right lower leg with fat layer exposed (2) Ulcer of left lower extremity with fat layer exposed Status: Chronic Current Visit: Yes Code(s): L97.922 - Non-pressure chronic ulcer of unspecified part of left lower leg with fat layer exposed (3) Calciphylaxis Status: Chronic Current Visit: Yes Code(s): E83.59 - Other disorders of calcium metabolism (4) Localized edema Status: Chronic Current Visit: Yes Code(s): R60.0 - Localized edema Type of Wound Chief Complaint: Ulcers bilateral legs History of Wound: Di is a 72 year old female that returns for follow up of bilateral leg ulcers. She had several theraskin and Apligraf applications applied in the clinical setting. She had a previous versa jet debridement with serial amnio fill, advanced wound care product, application in the operating room this past week. She denies pain, fever, chill, nausea, vomiting. She has been compliant with every other day Lacey applications this past week the left leg and has left the right Apligraf intact. She denies recent illness. She has been treated medically for calciphylaxis. Progress of Wound: Improving right leg. Healed left leg - Physical Exam Vital Signs Temp Pulse Resp BP 97.1 F L 80 16 113/68 08/22/18 09:45 08/22/18 09:45 08/22/18 09:45 08/22/18 09:45 General: Alert, Oriented x3, Cooperative Extremities: No cyanosis, Capillary Refill Less than 3 Seconds, No Calf Tenderness - Negative Kimberly and Layton sign bilateral, Diminished Peripheral Pulses, Edema - Bilateral lower extremities with varicosities continued Skin: Ulcer/ Wound - No purulence, erythema, streaking, odor, or infection. The right leg ulcer sites have improved beefy red granular bases. The left leg ulcer is healed with full epithelialization noted. The peripheral skin is hairless and atrophic bilateral, - - No necrosis or eschar bilateral Wound Measurements and Assessment WC - Nurse 1 - General Ulcer Measurement Start: 08/01/18 10:01 Freq: Status: Active Protocol: Activity Type Activity Date Activity User E-Sign Co-Sign Detail Recorded Client Recorded Date Recorded By Document 08/22/18 09:45 [facility] [id number] 08/22/18 10:01 [facility] 08/22/18 09:45 Wound Center Nurse 1 [Ulcer Assessment] #8 RIGHT POSTERIOR CALF -Combined with other wound No -Current Size (cm) - Length 8 -Current Size (cm) - Width 1.1 -Current Size (cm) - Depth 0.1 -Total Square Cm 8.8 -Date of Last Picture (Recall this 08/22/18 field) -Photo Taken Yes -Epithelialization None Present -Tunneling No -Undermining/Tunneling No -Circular Undermining No -Exudate Amt Small (1-33%) -Exudate Type Serosanguineous -Wound Margin Distinct, Outline Attached -Granulation Amt Small (1-33%) -Granulation Quality [place] -Slough/Fibrin Yes -Necrosis Amt Large (67-100%) -Necrotic Tissue Type Adherent Slough -Texture (Gabriella-wound Skin Appearance) Scarring -Moisture (Gabriella-wound Skin Appearance Dry/Scaly ) -Color (Gabriella-wound Skin Appearance) Assessed -Temperature (Gabriella-wound Skin No Abnormality Appearance) (Pt Warm) -Tenderness on Palpation (Gabriella-wound No Skin Appearance) -Ulcer Cleansing Wound Cleanser -Foul Odor after Cleansing No -Anesthetic Used 4% Lidocaine Solution #5 RIGHT MEDIAL CALF -Combined with other wound No -Current Size (cm) - Length 2.4 -Current Size (cm) - Width 2.6 -Current Size (cm) - Depth 0.1 -Total Square Cm 6.24 -Date of Last Picture (Recall this 08/22/18 field) -Photo Taken Yes -Epithelialization Small 1-33% -Tunneling No -Undermining/Tunneling No -Circular Undermining No -Exudate Amt Small (1-33%) -Exudate Type Serosanguineous -Wound Margin Distinct, Outline Attached -Granulation Amt Large (67-100%) -Granulation Quality Red -Slough/Fibrin Yes -Necrosis Amt Small (1-33%) -Necrotic Tissue Type Adherent Slough -Texture (Gabriella-wound Skin Appearance) Scarring -Moisture (Gabriella-wound Skin Appearance Dry/Scaly ) -Color (Gabriella-wound Skin Appearance) Assessed -Temperature (Gabriella-wound Skin No Abnormality Appearance) (Pt Warm) -Tenderness on Palpation (Gabriella-wound No Skin Appearance) -Ulcer Cleansing Wound Cleanser -Foul Odor after Cleansing No -Anesthetic Used 4% Lidocaine Solution #4 Left LATERAL calf -Combined with other wound No -Current Size (cm) - Length 0.1 -Current Size (cm) - Width 0.1 -Current Size (cm) - Depth 0.1 -Total Square Cm 0.01 -Date of Last Picture (Recall this 08/22/18 field) -Photo Taken Yes -Epithelialization Large 67-100% -Tunneling No -Undermining/Tunneling No -Circular Undermining No -Exudate Amt Small (1-33%) -Exudate Type Serosanguineous -Wound Margin Distinct, Outline Attached -Granulation Amt None Present (0 %) -Slough/Fibrin Yes -Necrosis Amt Large (67-100%) -Necrotic Tissue Type Adherent Slough -Texture (Gabriella-wound Skin Appearance) Scarring -Moisture (Gabriella-wound Skin Appearance Dry/Scaly ) -Color (Gabriella-wound Skin Appearance) Assessed -Temperature (Gabriella-wound Skin No Abnormality Appearance) (Pt Warm) -Tenderness on Palpation (Gabriella-wound No Skin Appearance) -Ulcer Cleansing Wound Cleanser -Foul Odor after Cleansing No -Anesthetic Used 4% Lidocaine Solution #3 RIGHT POSTERIOR LATERAL LE CLUSTER -Combined with other wound No -Current Size (cm) - Length 5 -Current Size (cm) - Width 3 -Current Size (cm) - Depth 0.1 -Total Square Cm 15 -Date of Last Picture (Recall this 08/22/18 field) -Photo Taken Yes -Epithelialization None Present -Tunneling No -Undermining/Tunneling No -Circular Undermining No -Exudate Amt Small (1-33%) -Exudate Type Serosanguineous -Wound Margin Distinct, Outline Attached -Granulation Amt Small (1-33%) -Granulation Quality Red -Slough/Fibrin Yes -Necrosis Amt Large (67-100%) -Necrotic Tissue Type Adherent Slough -Texture (Gabriella-wound Skin Appearance) Scarring -Moisture (Gabriella-wound Skin Appearance Dry/Scaly ) -Color (Gabriella-wound Skin Appearance) Assessed -Temperature (Gabriella-wound Skin No Abnormality Appearance) (Pt Warm) -Tenderness on Palpation (Gabriella-wound No Skin Appearance) -Ulcer Cleansing Wound Cleanser -Foul Odor after Cleansing No -Anesthetic Used 4% Lidocaine Solution [Edema Assessment] -Lower Limb Edema Present No -Right Calf (cm) 32.7 -Right Ankle (cm) 20.4 -Left Calf (cm) 31.5 -Left Ankle (cm) 21 WC - Nurse 2 - General Ulcer CM Notes Start: 08/01/18 10:01 Freq: Status: Active Protocol: Activity Type Activity Date Activity User E-Sign Co-Sign Detail Recorded Client Recorded Date Recorded By Document 08/22/18 10:18 [facility] [id number] 08/22/18 10:25 [facility] 08/22/18 10:18 Wound Center Nurse 2 [Procedure/Treatment] #8 RIGHT POSTERIOR CALF -Time 10:18 -Correct Patient Yes -Correct Side, Site, Position Yes -Correct Procedure Yes -Procedure Performed Yes -Type of Procedure Debridement -Clinical Debridement Subcutaneous -Post Debridement Size (cm) - Length 7 -Post Debridement Size (cm) - Width 1.2 -Post Debridement Size (cm) - Depth 0.1 -Total Square Cm 8.4 -Wound/Ulcer Outcome Not Healed -Ulcer Cleansing Rinsed/ Irrigated with Saline -Foul Odor after Cleansing No -Bioengineered Tissue Yes -Type of bioengineered Tissue EPIFIX -Expiration Date 04/25/23 -Product Lot Number [id number] -Percent Used 100 -Saline Lot Number [id number] -Bleeding Controlled with Pressure -Treatment Response Procedure Tolerated Well #5 RIGHT MEDIAL CALF -Time 10:19 -Correct Patient Yes -Correct Side, Site, Position Yes -Correct Procedure Yes -Procedure Performed Yes -Type of Procedure Debridement -Clinical Debridement Subcutaneous -Post Debridement Size (cm) - Length 2.5 -Post Debridement Size (cm) - Width 2.6 -Post Debridement Size (cm) - Depth 0.1 -Total Square Cm 6.50 -Wound/Ulcer Outcome Not Healed -Ulcer Cleansing Rinsed/ Irrigated with Saline -Foul Odor after Cleansing No -Bioengineered Tissue Yes -Type of bioengineered Tissue EPIFIX -Expiration Date 04/25/23 -Product Lot Number [id number] -Percent Used 100 -Saline Lot Number [id number] -Bleeding Controlled with Pressure -Treatment Response Procedure Tolerated Well #4 Left LATERAL calf -Correct Patient No -Correct Side, Site, Position No -Correct Procedure No -Procedure Performed No -Post Debridement Size (cm) - Length 0 -Post Debridement Size (cm) - Width 0 -Post Debridement Size (cm) - Depth 0 -Total Square Cm 0 -Wound/Ulcer Outcome Healed- Epithelialized #3 RIGHT POSTERIOR LATERAL LE CLUSTER -Time 10:20 -Correct Patient Yes -Correct Side, Site, Position Yes -Correct Procedure Yes -Procedure Performed Yes -Type of Procedure Debridement -Clinical Debridement Subcutaneous -Post Debridement Size (cm) - Length 5.1 -Post Debridement Size (cm) - Width 3 -Post Debridement Size (cm) - Depth 0.1 -Total Square Cm 15.3 -Wound/Ulcer Outcome Not Healed -Ulcer Cleansing Rinsed/ Irrigated with Saline -Foul Odor after Cleansing No -Bioengineered Tissue Yes -Type of bioengineered Tissue EPIFIX -Expiration Date 04/25/23 -Product Lot Number [id number] -Percent Used 100 -Saline Lot Number [id number] -Bleeding Controlled with Pressure -Treatment Response Procedure Tolerated Well [See Physician Procedure note for Specifics] Pain Scale: 0-10 Numeric [Pain] -Is Patient Pain Free? Yes Musculoskeletal: No Tenderness to Palpation of Joints or Extremities, Muscle Wasting Neurological: Sensory exam intact to light touch and pain Psych/Mental Status: Normal Affect, Appropriate Debridement Note Post-Debridement Measurements/Treatment WC - Nurse 2 - General Ulcer CM Notes Start: 08/01/18 10:01 Freq: Status: Active Protocol: Activity Type Activity Date Activity User E-Sign Co-Sign Detail Recorded Client Recorded Date Recorded By Document 08/01/18 10:35 [id number] 08/01/18 10:44 Document 08/08/18 10:41 [id number] 08/08/18 10:48 Document 08/15/18 10:42 [id number] 08/15/18 10:51 Document 08/22/18 10:18 [id number] 08/22/18 10:25 08/01/18 08/08/18 08/15/18 10:35 10:41 10:42 Wound Center Nurse 2 #8 RIGHT POSTERIOR CALF -Time 10:35 10:41 10:45 -Correct Patient Yes Yes Yes -Correct Side, Site, Position Yes Yes Yes -Correct Procedure Yes Yes Yes -Procedure Performed Yes Yes Yes -Type of Procedure Debridement Debridement Debridement -Clinical Debridement Subcutaneous Subcutaneous Subcutaneous -Post Debridement Size (cm) - Length 10.6 8.5 2.3 -Post Debridement Size (cm) - Width 1.6 1.5 3.5 -Post Debridement Size (cm) - Depth 0.1 0.1 0.1 -Total Square Cm 16.96 12.75 8.05 -Wound/Ulcer Outcome Not Healed Not Healed -Ulcer Cleansing Rinsed/ Rinsed/ Rinsed/ Irrigated with Irrigated with Irrigated with Saline Saline Saline -Foul Odor after Cleansing No No No -Bioengineered Tissue Yes No Yes -Type of bioengineered Tissue Apligraf EPIFIX -Expiration Date 08/09/18 04/25/23 -Product Lot Number [id number] -Percent Used 100 100 -Saline Lot Number [id number] -Topical Lidocaine (%) 5 -Bleeding Controlled with Pressure Pressure Pressure -Other 60% debrided -Treatment Response Procedure Procedure Procedure Tolerated Well Tolerated Well Tolerated Well #7 right anterior proximal LE -Time 10:36 -Correct Patient No -Correct Side, Site, Position No -Correct Procedure No -Procedure Performed No -Post Debridement Size (cm) - Length 0 -Post Debridement Size (cm) - Width 0 -Post Debridement Size (cm) - Depth 0 -Total Square Cm 0 -Wound/Ulcer Outcome Healed- Epithelialized -Ulcer Cleansing Rinsed/ Irrigated with Saline -Foul Odor after Cleansing No -Bioengineered Tissue No -Expiration Date 08/09/18 -Product Lot Number [id number] -Percent Used 100 -Saline Lot Number [id number] -Treatment Response Procedure Tolerated Well #6 LEFT MEDIAL SUPERIOR LEG -Time 10:37 -Correct Patient No -Correct Side, Site, Position No -Correct Procedure No -Procedure Performed No -Type of Procedure Debridement -Clinical Debridement Subcutaneous -Post Debridement Size (cm) - Length 0 -Post Debridement Size (cm) - Width 0 -Post Debridement Size (cm) - Depth 0 -Total Square Cm 0 -Wound/Ulcer Outcome Healed- Epithelialized -Ulcer Cleansing Rinsed/ Irrigated with Saline -Foul Odor after Cleansing No -Bioengineered Tissue No -Bleeding Controlled with NA -Treatment Response Procedure Tolerated Well #5 RIGHT MEDIAL CALF -Time 10:38 10:43 10:46 -Correct Patient Yes Yes Yes -Correct Side, Site, Position Yes Yes Yes -Correct Procedure Yes Yes Yes -Procedure Performed Yes Yes Yes -Type of Procedure Debridement Debridement -Clinical Debridement Subcutaneous Subcutaneous -Post Debridement Size (cm) - Length 5.6 1.5 -Post Debridement Size (cm) - Width 1.1 2.4 -Post Debridement Size (cm) - Depth 0.1 0.1 -Total Square Cm 6.16 3.60 -Wound/Ulcer Outcome Not Healed Not Healed Not Healed -Ulcer Cleansing Rinsed/ Rinsed/ Rinsed/ Irrigated with Irrigated with Irrigated with Saline Saline Saline -Foul Odor after Cleansing No No No -Bioengineered Tissue Yes No No -Type of bioengineered Tissue Apligraf -Expiration Date 08/09/18 -Product Lot Number [id number] -Percent Used 100 -Saline Lot Number [id number] -Bleeding Controlled with Pressure NA Pressure -Other 60% debrided. no debridement apligraf #5 intact covered with wound veil /steri strips -Treatment Response Procedure Procedure Procedure Tolerated Well Tolerated Well Tolerated Well #4 Left LATERAL calf -Time 10:40 10:44 10:48 -Correct Patient Yes Yes Yes -Correct Side, Site, Position Yes Yes Yes -Correct Procedure Yes Yes Yes -Procedure Performed Yes Yes Yes -Type of Procedure Debridement Debridement Debridement -Clinical Debridement Subcutaneous Subcutaneous Subcutaneous -Post Debridement Size (cm) - Length 0.9 0.7 1 -Post Debridement Size (cm) - Width 2.3 0.9 0.6 -Post Debridement Size (cm) - Depth 0.1 0.1 0.1 -Total Square Cm 2.07 0.63 0.6 -Wound/Ulcer Outcome Not Healed Not Healed Not Healed -Ulcer Cleansing Rinsed/ Rinsed/ Rinsed/ Irrigated with Irrigated with Irrigated with Saline Saline Saline -Foul Odor after Cleansing No No No -Bioengineered Tissue No Yes Yes -Type of bioengineered Tissue EPIFIX EPIFIX -Expiration Date 03/25/23 04/25/23 -Product Lot Number [id number] -Percent Used 50 100 -Saline Lot Number [id number] -Topical Lidocaine (%) 5 -Bleeding Controlled with Pressure Pressure Pressure -Treatment Response Procedure Procedure Procedure Tolerated Well Tolerated Well Tolerated Well #3 RIGHT POSTERIOR LATERAL LE CLUSTER -Time 10:40 10:45 10:49 -Correct Patient Yes Yes Yes -Correct Side, Site, Position Yes Yes Yes -Correct Procedure Yes Yes Yes -Procedure Performed Yes Yes Yes -Type of Procedure Debridement Debridement Debridement -Clinical Debridement Subcutaneous Subcutaneous Subcutaneous -Post Debridement Size (cm) - Length 2.4 1.5 9.6 -Post Debridement Size (cm) - Width 2.9 5.5 0.8 -Post Debridement Size (cm) - Depth 0.1 0.1 0.1 -Total Square Cm 6.96 8.25 7.68 -Wound/Ulcer Outcome Not Healed Not Healed Not Healed -Ulcer Cleansing Rinsed/ Rinsed/ Rinsed/ Irrigated with Irrigated with Irrigated with Saline Saline Saline -Foul Odor after Cleansing No No No -Bioengineered Tissue Yes Yes Yes -Type of bioengineered Tissue Apligraf EPIFIX EPIFIX -Expiration Date 08/09/18 03/25/23 04/25/23 -Product Lot Number [id number] -Percent Used 50 100 -Saline Lot Number [id number] -Topical Lidocaine (%) 5 -Bleeding Controlled with Pressure Pressure Pressure -Treatment Response Procedure Procedure Procedure Tolerated Well Tolerated Well Tolerated Well Pain Scale: 0-10 Numeric Is Patient Pain Free? Yes Yes Yes 08/22/18 10:18 Wound Center Nurse 2 #8 RIGHT POSTERIOR CALF -Time 10:18 -Correct Patient Yes -Correct Side, Site, Position Yes -Correct Procedure Yes -Procedure Performed Yes -Type of Procedure Debridement -Clinical Debridement Subcutaneous -Post Debridement Size (cm) - Length 7 -Post Debridement Size (cm) - Width 1.2 -Post Debridement Size (cm) - Depth 0.1 -Total Square Cm 8.4 -Wound/Ulcer Outcome Not Healed -Ulcer Cleansing Rinsed/ Irrigated with Saline -Foul Odor after Cleansing No -Bioengineered Tissue Yes -Type of bioengineered Tissue EPIFIX -Expiration Date 04/25/23 -Product Lot Number [id number] -Percent Used 100 -Saline Lot Number [id number] -Topical Lidocaine (%) -Bleeding Controlled with Pressure -Other -Treatment Response Procedure Tolerated Well #7 right anterior proximal LE -Time -Correct Patient -Correct Side, Site, Position -Correct Procedure -Procedure Performed -Post Debridement Size (cm) - Length -Post Debridement Size (cm) - Width -Post Debridement Size (cm) - Depth -Total Square Cm -Wound/Ulcer Outcome -Ulcer Cleansing -Foul Odor after Cleansing -Bioengineered Tissue -Expiration Date -Product Lot Number -Percent Used -Saline Lot Number -Treatment Response #6 LEFT MEDIAL SUPERIOR LEG -Time -Correct Patient -Correct Side, Site, Position -Correct Procedure -Procedure Performed -Type of Procedure -Clinical Debridement -Post Debridement Size (cm) - Length -Post Debridement Size (cm) - Width -Post Debridement Size (cm) - Depth -Total Square Cm -Wound/Ulcer Outcome -Ulcer Cleansing -Foul Odor after Cleansing -Bioengineered Tissue -Bleeding Controlled with -Treatment Response #5 RIGHT MEDIAL CALF -Time 10:19 -Correct Patient Yes -Correct Side, Site, Position Yes -Correct Procedure Yes -Procedure Performed Yes -Type of Procedure Debridement -Clinical Debridement Subcutaneous -Post Debridement Size (cm) - Length 2.5 -Post Debridement Size (cm) - Width 2.6 -Post Debridement Size (cm) - Depth 0.1 -Total Square Cm 6.50 -Wound/Ulcer Outcome Not Healed -Ulcer Cleansing Rinsed/ Irrigated with Saline -Foul Odor after Cleansing No -Bioengineered Tissue Yes -Type of bioengineered Tissue EPIFIX -Expiration Date 04/25/23 -Product Lot Number [id number] -Percent Used 100 -Saline Lot Number [id number] -Bleeding Controlled with Pressure -Other -Treatment Response Procedure Tolerated Well #4 Left LATERAL calf -Time -Correct Patient No -Correct Side, Site, Position No -Correct Procedure No -Procedure Performed No -Type of Procedure -Clinical Debridement -Post Debridement Size (cm) - Length 0 -Post Debridement Size (cm) - Width 0 -Post Debridement Size (cm) - Depth 0 -Total Square Cm 0 -Wound/Ulcer Outcome Healed- Epithelialized -Ulcer Cleansing -Foul Odor after Cleansing -Bioengineered Tissue -Type of bioengineered Tissue -Expiration Date -Product Lot Number -Percent Used -Saline Lot Number -Topical Lidocaine (%) -Bleeding Controlled with -Treatment Response #3 RIGHT POSTERIOR LATERAL LE CLUSTER -Time 10:20 -Correct Patient Yes -Correct Side, Site, Position Yes -Correct Procedure Yes -Procedure Performed Yes -Type of Procedure Debridement -Clinical Debridement Subcutaneous -Post Debridement Size (cm) - Length 5.1 -Post Debridement Size (cm) - Width 3 -Post Debridement Size (cm) - Depth 0.1 -Total Square Cm 15.3 -Wound/Ulcer Outcome Not Healed -Ulcer Cleansing Rinsed/ Irrigated with Saline -Foul Odor after Cleansing No -Bioengineered Tissue Yes -Type of bioengineered Tissue EPIFIX -Expiration Date 04/25/23 -Product Lot Number [id number] -Percent Used 100 -Saline Lot Number [id number] -Topical Lidocaine (%) -Bleeding Controlled with Pressure -Treatment Response Procedure Tolerated Well Pain Scale: 0-10 Numeric Is Patient Pain Free? Yes Wound debrided: posterior lateral leg Laterality: Right Type of Debridement: Excisional debridement Anesthesia Used: 5% Lidocaine Gel Depth: in the subcutaneous layer Percentage of wound debrided: 100 Instrument Used: #15 blade Tissue Removed: fibrous, devitalized subcutaneous, biofilm, slough Severity: Fat Layer Exposed Amount of bleeding with debridement: Mild Bleeding Controlled with: Pressure Patient tolerated procedure well - Additional Wound Wound debrided: posterior leg Laterality: Right Type of Debridement: Excisional debridement Anesthesia Used: 5% Lidocaine Gel Depth: in the subcutaneous layer Percentage of wound debrided: 100 Instrument Used: #15 blade Tissue Removed: fibrous, devitalized subcutaneous, biofilm, slough Severity: Fat Layer Exposed Amount of bleeding with debridement: Mild Bleeding Controlled with: Pressure Patient tolerated procedure: Patient tolerated procedure well - Additional Wound Wound debrided: medial leg Laterality: Right Type of Debridement: Excisional debridement Anesthesia Used: 5% Lidocaine Gel Depth: in the subcutaneous layer Percentage of wound debrided: 100 Instrument Used: #15 blade Tissue Removed: fibrous, devitalized subcutaneous, biofilm, slough Severity: Fat Layer Exposed Amount of bleeding with debridement: Mild Bleeding Controlled with: Pressure Patient tolerated procedure: Patient tolerated procedure well Assessment/Plan Active Problems (Last Reviewed 08/08/18 @ 08:27 by Coleen Soto NP-C) Calciphylaxis (Chronic) Ulcer of left lower extremity with fat layer exposed (Chronic) Ulcer of right lower extremity with fat layer exposed (Chronic) Localized edema (Chronic) Assessment: Right leg ulcers with fat layer exposed, chronic and noninfected. Left leg ulcer healed today. Delayed healing. venous insufficiency. Malnutrition suspected. Lower extremity pain. Multiple comorbidities noted. Calciphylaxis Plan: She was evaluated today and her care plan was discussed. Subcutaneous excisional debridement was performed to the right leg as noted in the clinical panel. Her left leg ulcer sites have completely healed. verbal consent was obtained for advanced wound care product epifix and this was applied to the right leg ulcer sites. She is approved for application of advanced wound care product, epi fix today. The indications plan application and anticipated healing and management were discussed. This was applied according to standard protocol after verbal consent was obtained to the right posterior leg and the left lateral leg. She tolerated this well. To keep clean and dry and intact until follow-up next week. This was secured in place with Steri-Strips and wound veil. Wound veil covered medial right leg ulcer only. I recommend continued serial application of advanced wound care products until full closure was achieved. She had a follow up with Dr. Pelaez for evaluation of her arterial Doppler exam which appeared to have distal perfusion. A biopsy of the leg skin was previously obtained and the results were reviewed today and will be placed in her chart. I reiterated the importance of taking pressure off of these wound sites. She was told by her doctor to stop taking glucerna as it had too much calcium. To only take nutritional supplementation but do not have additional calcium in them. He has completed a course of sodium thiosulfate for treatment of calciphylaxis as prescribed. She will continue on a low-dose prednisone and further calciphylaxis for sarcoidosis workup with her model and dye person, Dr. Almonte. It is also noted she is going to schedule for a lung biopsy for workup of sarcoidosis nodule versus other mass growth after September. I answered all of her questions. To return to the wound healing center 1 week or call sooner if there are any questions or concerns.
== END 2018-08-24 23:59 ==
LOC: WC 09:45
PROVIDERS: Family Provider Internal Medicine; PCP Internal Medicine; Referring Provider Family Medicine; Visit Provider Podiatrist
DX: I87.2 Venous insufficiency (chronic) (peripheral) (principal); L97.812 Non-pressure chronic ulcer of other part of right lower leg with fat layer exposed; R60.0 Localized edema; E83.59 Other disorders of calcium metabolism; D86.9 Sarcoidosis, unspecified; Z79.51 Long term (current) use of inhaled steroids; L97.222 Non-pressure chronic ulcer of left calf with fat layer exposed; L97.212 Non-pressure chronic ulcer of right calf with fat layer exposed
CPT/HCPCS: 11042; 11045; 15271; Q4101; Q4131

== ENCOUNTER → 2018-08-23 14:22 | Outpatient (CLI) | payer MEDICARE, SELFPAY ==
[2018-08-22 09:45] VITALS: BMI 35.4
--- NOTE | 2018-08-23 14:24 | CT_ITS ---
STUDY: CT CHEST WITH CONTRAST REASON FOR EXAM: Female, 72 years old. Pulmonary nodule RADIATION DOSAGE (If Supplied By Facility): CTDIvol = ( 9.78 ) mGy, DLP = ( 374.65 ) mGycm TECHNIQUE: Transaxial imaging was performed following intravenous administration of 100 ml of Isovue 300 contrast material. Coronal and sagittal reformatted images were created. Individualized dose optimization techniques were used for this CT. COMPARISON: 07/19/2017 FINDINGS: There is stable scarring in the bilateral lower lobes, right middle lobe and in the lingula. There are no pulmonary infiltrates or pleural effusions. There are no pulmonary nodules or masses. There is no pneumothorax. The heart and pericardium are within normal limits. There is no thoracic lymphadenopathy. There is stable aneurysmal dilatation of the ascending aorta, measuring 4.4 cm. There is a stable small hiatal hernia. There are no destructive osseous lesions. CT/Chest WITH Contrast IMPRESSION: Stable scarring in the lung bases. No pulmonary nodules or masses. No pulmonary infiltrates or pleural effusions. Stable 4.4 cm aneurysm of the ascending aorta. Electronically Signed: Usama Day, at 9:36 EST Tel , Service support ,
--- OUTSIDE RECORDS SUMMARY | 2018-10-18 19:52 | XMS RPT_ITS ---
:1945 Author Organization OHIP Support Name Relationship Address Phone GERALDO ZAPATA Unavailable [address] + [place] [address] QUINTANA, STAR Unavailable Unavailable + [place] [address] R Unavailable Unavailable Unavailable GERALDO ZAPATA Unavailable [address] [place] [address] RD + [place] [address] QUINTANA, STAR Unavailable Unavailable + [place] [address] R Unavailable Unavailable Unavailable GERALDO ZAPATA Unavailable [address] + [place] [address] QUINTANA, STAR Unavailable Unavailable + [place] [address] R Unavailable Unavailable Unavailable GERALDO ZAPATA Unavailable [address] [place] [address] RD + [place] [address] QUINTANA, STAR Unavailable Unavailable + [place] [address] R Unavailable Unavailable Unavailable EMMA GERALDO Unavailable [address] [place] [address] RD + [place] [address] QUINATNA, STAR Unavailable Unavailable + [place] [address] R Unavailable Unavailable Unavailable EMMA GERALDO Unavailable [address] [place] [address] RD + [place] [address] QUINTANA, STAR Unavailable Unavailable + [place] [address] R Unavailable Unavailable Unavailable GERALDO ZAPATA Unavailable [address] [place] [address] RD + [place] [address] QUINTANA, STAR Unavailable Unavailable + [place] [address] R Unavailable Unavailable Unavailable EMMA, GERALDO Unavailable [address] [place] [address] RD + [place] [address] QUINTANA, STAR Unavailable Unavailable + [place] [address] R Unavailable Unavailable Unavailable EMMA, GERALDO Unavailable [address] [place] [address] RD + [place] [address] QUINTANA, STAR Unavailable Unavailable + R Unavailable Unavailable Unavailable EMMA, GERALDO Unavailable [address] [place] [address] RD + [place] [address] QUINTANA, STAR Unavailable Unavailable + R Unavailable Unavailable Unavailable EMMA, GERALDO Unavailable [address] [place] [address] RD + [place] [address] QUINTANA, STAR Unavailable Unavailable + [place] [address] R Unavailable Unavailable Unavailable EMMA, GERALDO Unavailable [address] [place] [address] RD + [place] [address] QUINTANA, STAR Unavailable Unavailable + R Unavailable Unavailable Unavailable EMMA, GERALDO Unavailable [address] [place] [address] RD + [place] [address] QUINTANA, STAR Unavailable . + ., [place] . R Unavailable Unavailable Unavailable EMMA, GERALDO Unavailable [address] [place] [address] RD + [place] [address] QUINTANA, STAR Unavailable . + ., [place] . R Unavailable Unavailable Unavailable EMMA, GERALDO Unavailable [address] [place] [address] RD + [place] [address] QUINTANA, STAR Unavailable Unavailable + R Unavailable Unavailable Unavailable EMMA, GERALDO Unavailable [address] [place] [address] RD + [place] [address] QUINTANA, STAR Unavailable . + [place] [address] R Unavailable Unavailable Unavailable EMMA, GERALDO Unavailable [address] [place] [address] RD + [place] [address] QUINTANA, STAR Unavailable Unavailable + R Unavailable Unavailable Unavailable EMMA, GERALDO Unavailable [address] [place] [address] RD + [place] [address] QUINTANA, TSAR Unavailable Unavailable + [place] [address] R Unavailable Unavailable Unavailable EMMA, GERALDO Unavailable [address] [place] [address] RD + [place] [address] QUINTANA, STAR Unavailable Unavailable + R Unavailable Unavailable Unavailable EMMA, GERALDO Unavailable [address] [place] [address] [address] + [place] [address] QUINTANA, STAR Unavailable Unavailable + R Unavailable Unavailable Unavailable EMMA, GERALDO Unavailable [address] [place] [address] [address] + [place] [address] QUINTANA, STAR Unavailable Unavailable + R Unavailable Unavailable Unavailable EMMA, GERALDO Unavailable [address] [place] [address] RD + [place] [address] QUINTANA, STAR Unavailable Unavailable + R Unavailable Unavailable Unavailable EMMA, GERALDO Unavailable [address] [place] [address] RD + [place] [address] QUINTANA, STAR Unavailable Unavailable + R Unavailable Unavailable Unavailable EMMA, GERALDO Unavailable [address] [place] [address] [address] + [place] [address] QUINTANA, STAR Unavailable Unavailable + R Unavailable Unavailable Unavailable EMMA, GERALDO Unavailable [address] [place] [address] [address] + [place] [address] QUINTANA, STAR Unavailable Unavailable + R Unavailable Unavailable Unavailable EMMA, GERALDO Unavailable [address] [place] [address] RD + [place] [address] QUINTANA, STAR Unavailable Unavailable + R Unavailable Unavailable Unavailable EMMA, GERALDO Unavailable [address] [place] [address] [address] + [place] [address] QUINTANA, STAR Unavailable Unavailable + R Unavailable Unavailable Unavailable EMMA, GERALDO Unavailable [address] [place] [address] RD + [place] [address] QUINTANA, STAR Unavailable Unavailable + R Unavailable Unavailable Unavailable EMMA, GERALDO Unavailable [address] + [place] [address] QUINTANA, STAR Unavailable Unavailable + R Unavailable Unavailable Unavailable EMMA, GERALDO Unavailable [address] + [place] [address] QUINTANA, STAR Unavailable Unavailable + R Unavailable Unavailable Unavailable EMMA, GERALDO Unavailable [address] + [place] [address] QUINTANA, STAR Unavailable Unavailable + R Unavailable Unavailable Unavailable EMMA, GERALDO Unavailable [address] + [place] [address] QUINTANA, STAR Unavailable Unavailable + R Unavailable Unavailable Unavailable EMMA, GERALDO Unavailable [address] [place] [address] [address] + [place] [address] QUINTANA, STAR Unavailable Unavailable + R Unavailable Unavailable Unavailable EMMA, GERALDO Unavailable [address] [place] [address] [address] + [place] [address] QUINTANA, STAR Unavailable Unavailable + R Unavailable Unavailable Unavailable EMMA, GERALDO Unavailable [address] [place] [address] [address] + [place] [address] QUINTANA, STAR Unavailable Unavailable + R Unavailable Unavailable Unavailable EMMA, GERALDO Unavailable [address] [place] [address] RD + [place] [address] UQINTANA, STAR Unavailable Unavailable + R Unavailable Unavailable Unavailable EMMA, GERALDO Unavailable [address] [place] [address] [address] + [place] [address] QUINTANA, STAR Unavailable Unavailable + R Unavailable Unavailable Unavailable EMMA, GERALDO Unavailable [address] [place] [address] [address] + [place] [address] QUINTANA, STAR Unavailable Unavailable + R Unavailable Unavailable Unavailable EMMA, GERALDO Unavailable [address] + [place] [address] QUINTANA, STAR Unavailable Unavailable + R Unavailable Unavailable Unavailable EMMA, GERALDO Unavailable [address] + [place] [address] QUINTANA, STAR Unavailable Unavailable + R Unavailable Unavailable Unavailable EMMA, GERALDO Unavailable [address] + [place] [address] QUINTANA, STAR Unavailable Unavailable + R Unavailable Unavailable Unavailable EMMA, GERALDO Unavailable [address] [place] [address] [address] + [place] [address] QUINTANA, STAR Unavailable Unavailable + R Unavailable Unavailable Unavailable EMMA, GERALDO Unavailable [address] [place] [address] [address] + [place] [address] QUINTANA, STAR Unavailable Unavailable + R Unavailable Unavailable Unavailable EMMA, GERALDO Unavailable [address] [place] [address] [address] + [place] [address] QUINTANA, STAR Unavailable Unavailable + R Unavailable Unavailable Unavailable EMMA, GERALDO Unavailable [address] [place] [address] [address] + [place] [address] QUINTANA, STAR Unavailable Unavailable + R Unavailable Unavailable Unavailable EMMA, GERALDO Unavailable [address] [place] [address] [address] + [place] [address] QUINTANA, STAR Unavailable Unavailable + R Unavailable Unavailable Unavailable EMMA, GERALDO Unavailable [address] [place] [address] [address] + [place] [address] QUINTANA, STAR Unavailable Unavailable + R Unavailable Unavailable Unavailable EMMA, GERALDO Unavailable [address] [place] [address] [address] + [place] [address] QUINTANA, STAR Unavailable Unavailable + R Unavailable Unavailable Unavailable EMMA, GERALDO Unavailable [address] [place] [address] [address] + [place] [address] QUINTANA, STAR Unavailable Unavailable + R Unavailable Unavailable Unavailable EMMA, GERALDO Unavailable [address] [place] [address] [address] + [place] [address] QUINTANA, STAR Unavailable Unavailable + R Unavailable Unavailable Unavailable EMMA, GERALDO Unavailable [address] [place] [address] [address] + [place] [address] QUINTANA, STAR Unavailable Unavailable + R Unavailable Unavailable Unavailable EMMA, GERALDO Unavailable [address] [place] [address] [address] + [place] [address] QUINTANA, STAR Unavailable Unavailable + R Unavailable Unavailable Unavailable EMMA, GERALDO Unavailable [address] [place] [address] [address] + [place] [address] QUINTANA, STAR Unavailable Unavailable + R Unavailable Unavailable Unavailable EMMA, GERALDO Unavailable [address] [place] [address] [address] + [place] [address] QUINTANA, STAR Unavailable Unavailable + R Unavailable Unavailable Unavailable EMMA, GERALDO Unavailable [address] [place] [address] [address] + [place] [address] QUINTANA, STAR Unavailable Unavailable + R Unavailable Unavailable Unavailable EMMA, FOREST Unavailable [address] [place] [address] [address] + [place] [address] QUINTANA, STAR Unavailable . + [place] [address] R Unavailable Unavailable Unavailable EMMA, GERALDO Unavailable [address] [place] [address] [address] + [place] [address] QUINTANA, STAR Unavailable Unavailable + R Unavailable Unavailable Unavailable EMMA, GERALDO Unavailable [address] [place] [address] [address] + [place] [address] QUINTANA, STAR Unavailable Unavailable + R Unavailable Unavailable Unavailable EMMA, GERALDO Unavailable [address] [place] [address] [address] + [place] [address] QUINTANA, STAR Unavailable . + [place] [address] R Unavailable Unavailable Unavailable EMMA, GERALDO Unavailable [address] + [place] [address] QUINTANA, STAR Unavailable Unavailable + R Unavailable Unavailable Unavailable EMMA, GERALDO Unavailable [address] + [place] [address] QUINTANA, STAR Unavailable Unavailable + R Unavailable Unavailable Unavailable EMMA, GERALDO Unavailable [address] + [place] [address] QUINTANA, STAR Unavailable Unavailable + R Unavailable Unavailable Unavailable EMMA, GERALDO Unavailable [address] [place] [address] [address] + [place] [address] QUINTANA, STAR Unavailable Unavailable + R Unavailable Unavailable Unavailable EMMA, GERALDO Unavailable [address] [place] [address] [address] + [place] [address] QUINTANA, STAR Unavailable Unavailable + R Unavailable Unavailable Unavailable EMMA, GERALDO Unavailable [address] [place] [address] [address] + [place] [address] QUINTANA, STAR Unavailable Unavailable + R Unavailable Unavailable Unavailable EMMA, FOREST Unavailable [address] [place] [address] [address] + [place] [address] QUINTANA, STAR Unavailable Unavailable + R Unavailable Unavailable Unavailable EMMA, FOREST Unavailable [address] [place] [address] [address] + [place] [address] QUINTANA, STAR Unavailable Unavailable + R Unavailable Unavailable Unavailable EMMA, GERALDO Unavailable [address] [place] [address] [address] + [place] [address] QUINTANA, STAR Unavailable Unavailable + R Unavailable Unavailable Unavailable EMMA, GERALDO Unavailable [address] [place] [address] [address] + [place] [address] QUINTANA, STAR Unavailable . + [place] [address] R Unavailable Unavailable Unavailable EMMA, GERALDO Unavailable [address] [place] [address] [address] + [place] [address] QUINTANA, STAR Unavailable Unavailable + R Unavailable Unavailable Unavailable EMMA, GERALDO Unavailable [address] [place] [address] [address] + [place] [address] QUINTANA, STAR Unavailable . + [place] [address] R Unavailable Unavailable Unavailable EMMA, GERALDO Unavailable [address] [place] [address] [address] + [place] [address] QUINTANA, STAR Unavailable . + [place] [address] R Unavailable Unavailable Unavailable EMMA, FOREST Unavailable [address] [place] [address] [address] + [place] [address] QUINTANA, STAR Unavailable . + [place] [address] R Unavailable Unavailable Unavailable EMMA, GERALDO Unavailable [address] [place] [address] [address] + [place] [address] QUINTANA, STAR Unavailable . + [place] [address] R Unavailable Unavailable Unavailable EMMA, FOREST Unavailable [address] [place] [address] [address] + [place] [address] QUINTANA, STAR Unavailable . + [place] [address] R Unavailable Unavailable Unavailable EMMA, FOREST Unavailable [address] [place] [address] [address] + [place] [address] QUINTANA, STAR Unavailable . + [place] [address] R Unavailable Unavailable Unavailable EMMA, FOREST Unavailable [address] [place] [address] [address] + [place] [address] QUINTANA, STAR Unavailable . + [place] [address] R Unavailable Unavailable Unavailable EMMA, GERALDO Unavailable [address] [place] [address] [address] + [place] [address] QUINTANA, STAR Unavailable . + [place] [address] R Unavailable Unavailable Unavailable EMMA, GERALDO Unavailable [address] [place] [address] [address] + [place] [address] QUINTANA, STAR Unavailable . + [place] [address] R Unavailable Unavailable Unavailable EMMA, GERALDO Unavailable [address] [place] [address] [address] + [place] [address] QUINTANA, STAR Unavailable . + [place] [address] R Unavailable Unavailable Unavailable EMMA, GERALDO Unavailable [address] [place] [address] [address] + [place] [address] QUINTANA, STAR Unavailable . + [place] [address] R Unavailable Unavailable Unavailable EMMA, GERALDO Unavailable [address] [place] [address] [address] + [place] [address] QUINTANA, STAR Unavailable . + [place] [address] R Unavailable Unavailable Unavailable EMMA, GERALDO Unavailable [address] [place] [address] [address] + [place] [address] R Unavailable Unavailable Unavailable EMMA, GERALDO Unavailable [address] [place] [address] [address] + [place] [address] R Unavailable Unavailable Unavailable EMMA, GERALDO Unavailable [address] [place] [address] [address] + [place] [address] R Unavailable Unavailable Unavailable EMMA, GERALDO Unavailable [address] [place] [address] [address] + [place] [address] R Unavailable Unavailable Unavailable EMMA, GERALDO Unavailable [address] [place] [address] [address] + [place] [address] QUINTANA, STAR Unavailable Unavailable + R Unavailable Unavailable Unavailable EMMA, GERALDO Unavailable [address] [place] [address] [address] + [place] [address] QUINTANA, STAR Unavailable Unavailable + R Unavailable Unavailable Unavailable EMMA, GERALDO Unavailable [address] [place] [address] [address] + [place] [address] QUINTANA, STAR Unavailable Unavailable + R Unavailable Unavailable Unavailable EMMA, GERALDO Unavailable [address] + [place] [address] QUINTANA, STAR Unavailable Unavailable + R Unavailable Unavailable Unavailable EMMA, GERALDO Unavailable [address] + [place] [address] QUINTANA, STAR Unavailable Unavailable + R Unavailable Unavailable Unavailable EMMA, GERALDO Unavailable [address] + [place] [address] QUINTANA, STAR Unavailable Unavailable + R Unavailable Unavailable Unavailable EMMA, GERALDO Unavailable [address] [place] [address] [address] + [place] [address] QUINTANA, STAR Unavailable . + [place] [address] R Unavailable Unavailable Unavailable EMMA, GERALDO Unavailable [address] [place] [address] [address] + [place] [address] R Unavailable Unavailable Unavailable EMMA, GERALDO Unavailable [address] [place] [address] [address] + [place] [address] R Unavailable Unavailable Unavailable EMMA, GERALDO Unavailable [address] [place] [address] [address] + [place] [address] R Unavailable Unavailable Unavailable EMMA, GERALDO Unavailable [address] [place] [address] [address] + [place] [address] R Unavailable Unavailable Unavailable EMMA, GERALDO Unavailable [address] [place] [address] [address] + [place] [address] R Unavailable Unavailable Unavailable EMMA, GERALDO Unavailable [address] [place] [address] RD + [place] [address] R Unavailable Unavailable Unavailable EMMA, GERALDO Unavailable [address] [place] [address] [address] + [place] [address] R Unavailable Unavailable Unavailable EMMA, GERALDO Unavailable [address] [place] [address] [address] + [place] [address] R Unavailable Unavailable Unavailable EMMA, GERALDO Unavailable [address] [place] [address] [address] + [place] [address] R Unavailable Unavailable Unavailable EMMA, GERALDO Unavailable [address] + [place] [address] R Unavailable Unavailable Unavailable EMMA, GERALDO Unavailable [address] + [place] [address] R Unavailable Unavailable Unavailable EMMA, GERALDO Unavailable [address] [place] [address] [address] + [place] [address] SHECKS IGA Unavailable [address] + [place] [address] EMMA, GERALDO Unavailable NA + [place], [place] R Unavailable Unavailable Unavailable EMMA, GERALDO Unavailable [address] + [place] [address] R Unavailable Unavailable Unavailable EMMA, GERALDO Unavailable [address] + [place] [address] R Unavailable Unavailable Unavailable EMMA, GERALDO Unavailable [address] [place] [address] [address] + [place] [address] R Unavailable Unavailable Unavailable EMMA, GERALDO Unavailable [address] [place] [address] [address] + [place] [address] R Unavailable Unavailable Unavailable EMMA, GERALDO Unavailable [address] [place] [address] [address] + [place] [address] R Unavailable Unavailable Unavailable EMMA, GERALDO Unavailable [address] [place] [address] [address] + [place] [address] R Unavailable Unavailable Unavailable EMMA, GERALDO Unavailable [address] [place] [address] [address] + [place] [address] R Unavailable Unavailable Unavailable EMMA, GERALDO Unavailable [address] [place] [address] [address] + [place] [address] R Unavailable Unavailable Unavailable EMMA, GERALDO Unavailable [address] [place] [address] [address] + [place] [address] R Unavailable Unavailable Unavailable EMMA, GERALDO Unavailable [address] [place] [address] [address] + [place] [address] R Unavailable Unavailable Unavailable EMMA, GERALDO Unavailable [address] [place] [address] [address] + [place] [address] R Unavailable Unavailable Unavailable EMMA, GERALDO Unavailable [address] + [place] [address] R Unavailable Unavailable Unavailable EMMA GERALDO Unavailable [address] + [place] [address] R Unavailable Unavailable Unavailable EMMA, GERALDO Unavailable [address] + [place] [address] R Unavailable Unavailable Unavailable Care Team Providers Name Role Phone MACKENZIE BELL ([facility]) Attending Unavailable CORNMACKENZIE SANCHEZ ([facility]) Referring Unavailable TIDWELL, ALISSA Attending Unavailable TIDWELL, ALISSA Attending Unavailable OLDER, MILLICENT ([facility]) Referring Unavailable OLDER, MILLICENT ([facility]) Attending Unavailable CORNIELLO, MACKENZIE L ([facility]) Referring Unavailable OLDER, MILLICENT ([facility]) Referring Unavailable TIDWELL, ALISSA Attending Unavailable TIDWELL, ALISSA Referring Unavailable TIDWELL, ALISSA Referring Unavailable OLDER, MILLICENT ([facility]) Attending Unavailable NORA SPAIN Referring Unavailable OLDER, MILLICETN ([facility]) Attending Unavailable TIDWELL, ALISSA Attending Unavailable TIDWELL, ALISSA Referring Unavailable TIDWELL, ALISSA Referring Unavailable Eliu Mitchell D.O. Attending Unavailable Coleen Soto Referring Unavailable Mira Almonte Attending Unavailable Tidwell, Aaron Primary Care Unavailable Tidwell, Aaron Primary Care Unavailable Christen Prado Attending Unavailable Malys, Meche Attending Unavailable Tidwell, Aaron Primary Care Unavailable Epifanio Childers Attending Unavailable TANA HUDDLESTON Referring Unavailable Tidwell, Aaron Primary Care Unavailable Mira Almonte Consulting Unavailable Tessie White Consulting Unavailable TANA HUDDLESTON Consulting Unavailable Malys, Meche Attending Unavailable Tidwell, Aaron Primary Care Unavailable Malys, Meche Referring Unavailable Mira Almonte Consulting Unavailable Tidwell, Aaron Primary Care Unavailable Mauricio Mccurdy Attending Unavailable Mackenzie Bell VAMP STRAP IRONER-C Attending Unavailable Mackenzie Bell VAMP STRAP IRONER-C Referring Unavailable Tidwell, Aaron Primary Care Unavailable Tidwell, Aaron Primary Care Unavailable Harley Livingston Admitting Unavailable Terence Bonilla Attending Unavailable Palmer Orona Attending Unavailable Mira Almonte Attending Unavailable Tidwell, Aaron Primary Care Unavailable Jopperi, Terence Attending Unavailable Jopperi, Terence Attending Unavailable Jopperi, Terence Attending Unavailable Tidwell, Aaron Primary Care Unavailable Yoli Sullivan Attending Unavailable Mira Almonte Attending Unavailable Alvarado, Enterprise Referring Unavailable Tidwell, Aaron Primary Care Unavailable Jose Breaux Attending Unavailable Tidwell, Aaron Referring Unavailable Gosia Martinez Attending Unavailable RoofJose H Attending Unavailable Tidwell, Aaron Referring Unavailable Santiago Pelaez Attending Unavailable Santiago Pelaez Referring Unavailable Tidwell, Aaron Primary Care Unavailable Jopperi, Terence Attending Unavailable Malys, Meche Referring Unavailable Tidwell, Aaron Primary Care Unavailable Mira Almonte Consulting Unavailable MaheshoneNora Attending Unavailable Alvarado, Enterprise Attending Unavailable Tidwell, Aaron Primary Care Unavailable Alvarado, Enterprise Referring Unavailable Mili Major Consulting Unavailable Tidwell, Aaron Attending Unavailable Tidwell, Aaron Primary Care Unavailable Tidwell, Aaron Primary Care Unavailable Christen Prado Attending Unavailable FascioneNora Attending Unavailable Malys, Meche Referring Unavailable Tidwell, Aaron Primary Care Unavailable Mira Almonte Consulting Unavailable Gage, Mira Attending Unavailable Tidwell, Aaron Primary Care Unavailable Tidwell, Aaron Primary Care Unavailable Roca, Esa Attending Unavailable Roca, Esa Referring Unavailable Gage, Mira Consulting Unavailable Tidwell, Aaron Primary Care Unavailable Meche Ramos Attending Unavailable Tidwell, Aaron Primary Care Unavailable Major Meyers Attending Unavailable Tidwell, Aaron Primary Care Unavailable Eliu Mitchell D.O. Consulting Unavailable John, Frederic Admitting Unavailable Paintsil, [place] Attending Unavailable Huang Alvarado Consulting Unavailable John, Frederic Admitting Unavailable Eliu Mitchell D.O. Attending Unavailable Tidwell, Aaron Primary Care Unavailable Eliu Mitchell D.O. Consulting Unavailable Huang Alvarado Consulting Unavailable John, Frederic Consulting Unavailable John, Frederic Admitting Unavailable John, Frederic Attending Unavailable Tidwell, Aaron Primary Care Unavailable Eliu Mitchell D.O. Consulting Unavailable Huang Alvarado Consulting Unavailable John, Frederic Consulting Unavailable John, Frederic Admitting Unavailable John, Frederic Attending Unavailable Tidwell, Aaron Primary Care Unavailable Eliu Mitchell D.O. Consulting Unavailable Essex, Huang Consulting Unavailable John, Frederic Consulting Unavailable John, Frederic Admitting Unavailable Eliu Mitchell D.O. Attending Unavailable Tidwell, Aaron Primary Care Unavailable Eliu Mitchell D.O. Consulting Unavailable Essex, Huang Consulting Unavailable John, Frederic Consulting Unavailable John, Frederic Admitting Unavailable Eliu Mitchell D.O. Attending Unavailable Tidwell, Aaron Primary Care Unavailable Eliu Mitchell D.O. Consulting Unavailable Jenny, Huang Consulting Unavailable John, Frederic Consulting Unavailable John, Frederic Admitting Unavailable John, Frederic Attending Unavailable Tidwell, Aaron Primary Care Unavailable Eliu Mitchell D.O. Consulting Unavailable Jenny, Huang Consulting Unavailable John, Frederic Consulting Unavailable John, Frederic Admitting Unavailable Eliu Mitchell D.O. Attending Unavailable Tidwell, Aaron Primary Care Unavailable Eliu Mitchell D.O. Consulting Unavailable Jenny, Huang Consulting Unavailable John, Frederic Consulting Unavailable John, Frederic Admitting Unavailable John, Frederic Attending Unavailable Tidwell, Aaron Primary Care Unavailable Eliu Mitchell D.O. Consulting Unavailable Essex, Huang Consulting Unavailable John, Frederic Consulting Unavailable John, Frederic Admitting Unavailable Paintsil, [place] Attending Unavailable Tidwell, Aaron Primary Care Unavailable Eliu Mitchell D.O. Consulting Unavailable Huang Alvarado Consulting Unavailable Paintsil, [place] Consulting Unavailable John, Frederic Admitting Unavailable Paintsil, [place] Attending Unavailable Tidwell, Aaron Primary Care Unavailable Eliu Mitchell D.O. Consulting Unavailable Jenny, Huang Consulting Unavailable Paintsil, [place] Consulting Unavailable Redd, Ari Chi Admitting Unavailable Redd, Ari Chi Attending Unavailable Erdd, Ari Chi Referring Unavailable Tidwell, Aaron Primary Care Unavailable Gosia Lawson Attending Unavailable Tidwell, Aaron Referring Unavailable Tidwell, Aaron Primary Care Unavailable Nora Spain Attending Unavailable Malys, Meche Referring Unavailable Tidwell, Aaron Primary Care Unavailable Mira Almonte Consulting Unavailable Alvarado, Enterprise Attending Unavailable Alvarado, Epifanio Referring Unavailable Tidwell, Aaron Primary Care Unavailable Hamdan, Firas Consulting Unavailable Essex, Huang Attending Unavailable Tidwell, Aaron Referring Unavailable Tidwell, Aaron Primary Care Unavailable Deacon Wylie Attending Unavailable John, Frederic Referring Unavailable Epifanio Childers Attending Unavailable Malys, Meche Referring Unavailable Fascione, Nora Attending Unavailable Malys, Meche Referring Unavailable Tidwell, Aaron Primary Care Unavailable Gage, Mira Consulting Unavailable Fascione, Nora Attending Unavailable Tidwell, Aaron Primary Care Unavailable Gage, Mira Attending Unavailable Tidewll, Aaron Primary Care Unavailable Va Monique Attending Unavailable Fascione, Nora Attending Unavailable Malys, Meche Referring Unavailable Tidwell, Aaron Primary Care Unavailable Gage, Mira Consulting Unavailable Fascione, Nora Attending Unavailable Tidwell, Aaron Primary Care Unavailable Gage, Mira Attending Unavailable Tidwell, Aaron Primary Care Unavailable Gage, Mira Attending Unavailable Gage, Mira Referring Unavailable Tidwell, Aaron Primary Care Unavailable Gage, Mira Attending Unavailable Gage, Mira Referring Unavailable Tidwell, Aaron Primary Care Unavailable Gage, Mira Attending Unavailable Gage, Mira Referring Unavailable Tidwell, Aaron Primary Care Unavailable Fascione, Nora Attending Unavailable Malys, Meche Referring Unavailable Tidwell, Aaron Primary Care Unavailable Gage, Mira Consulting Unavailable Fascione, Nora Attending Unavailable Tidwell, Aaron Primary Care Unavailable Gage, Mira Attending Unavailable Gage, Mira Referring Unavailable Tidwell, Aaron Primary Care Unavailable Fascione, Nora Consulting Unavailable Gage, Mira Attending Unavailable Gage, Mira Referring Unavailable Tidwell, Aaron Primary Care Unavailable Gage, Mira Attending Unavailable Gage, Mira Referring Unavailable Tidwell, Aaron Primary Care Unavailable Gage, Mira Attending Unavailable Gage, Mira Referring Unavailable Tidwell, Aaron Primary Care Unavailable Gage, Mira Attending Unavailable Gage, Mira Referring Unavailable Tidwell, Aaron Primary Care Unavailable Tidwell, Aaron Primary Care Unavailable Esa Roca Attending Unavailable Gage, Mira Attending Unavailable Gage, Mira Referring Unavailable Tidwell, Aaron Primary Care Unavailable AlvaradoEpifanio Attending Unavailable Tidwell, Aaron Referring Unavailable Huang Alvarado Attending Unavailable Tidwell, Aaron Referring Unavailable Tidwell, Aaron Primary Care Unavailable Gage, Mira Attending Unavailable Gage, Mira Referring Unavailable Tidwell, Aaron Primary Care Unavailable Gage, Mira Attending Unavailable Gage, Mira Referring Unavailable Tidwell, Aaron Primary Care Unavailable Gage, Mira Attending Unavailable Gage, Mira Referring Unavailable Tidwell, Aaron Primary Care Unavailable Gage, Mira Attending Unavailable Gage, Mira Referring Unavailable Tidwell, Aaron Primary Care Unavailable Fascione, Nora Attending Unavailable Malys, Meche Referring Unavailable Tidwell, Aaron Primary Care Unavailable Gage, Mira Consulting Unavailable Fascione, Nora Attending Unavailable Tidwell, Aaron Primary Care Unavailable Gage, Mira Attending Unavailable Gage, Mira Referring Unavailable Tidwell, Aaron Primary Care Unavailable Basali, Aden Attending Unavailable Basali, Ayman Referring Unavailable Tidwell, Aaron Primary Care Unavailable Gage, Mira Attending Unavailable Gage, Mira Referring Unavailable Tidwell, Aaron Primary Care Unavailable Gage, Mira Attending Unavailable Gage, Mira Referring Unavailable Tidwell, Aaron Primary Care Unavailable Gage, Mira Attending Unavailable Gage, Mira Referring Unavailable Tidwell, Aaron Primary Care Unavailable Gage, Mira Attending Unavailable Gage, Mira Referring Unavailable Tidwell, Aaron Primary Care Unavailable Gage, Mira Attending Unavailable Gage, Mira Referring Unavailable Tidwell, Aaron Primary Care Unavailable Gage, Mira Attending Unavailable Gage, Mira Referring Unavailable Tidwell, Aaron Primary Care Unavailable Gage, Mira Attending Unavailable Gage, Mira Referring Unavailable Tidwell, Aaron Primary Care Unavailable Fascione, Nora Attending Unavailable Fascione, Nora Referring Unavailable Tidwell, Aaron Primary Care Unavailable Gage, Mira Attending Unavailable Gage, Mira Referring Unavailable Tidwell, Aaron Primary Care Unavailable Gage, Mira Attending Unavailable Gage, Mira Referring Unavailable Tidwell, Aaron Primary Care Unavailable Gage, Mira Attending Unavailable Gage, Mira Referring Unavailable Tidwell, Aaron Primary Care Unavailable Fascione, Nora Attending Unavailable Malys, Mcehe Referring Unavailable Tidwell, Aaron Primary Care Unavailable Gage, Mira Consulting Unavailable Gage, Mira Attending Unavailable Gage, Mira Referring Unavailable Tidwell, Aaron Primary Care Unavailable Gage, Mira Attending Unavailable Gage, Mira Referring Unavailable Tidwell, Aaron Primary Care Unavailable Gage, Mira Attending Unavailable Gage, Mira Referring Unavailable Tidwell, Aaron Primary Care Unavailable Gage, Mira Attending Unavailable Gage, Mira Referring Unavailable Tidwell, Aaron Primary Care Unavailable Gage, Mira Attending Unavailable Gage, Mira Referring Unavailable Tidwell, Aaron Primary Care Unavailable Gage, Mira Attending Unavailable Gage, Mira Referring Unavailable Tidwell, Aaron Primary Care Unavailable Gage, Mira Attending Unavailable Gage, Mira Referring Unavailable Tidwell, Aaron Primary Care Unavailable Fascione, Nora Attending Unavailable Malys, Meche Referring Unavailable Tidwell, Aaron Primary Care Unavailable Gage, Mira Consulting Unavailable Fascione, Nora Attending Unavailable Fascione, Nora Referring Unavailable Tidwell, Aaron Primary Care Unavailable Gage, Mira Attending Unavailable Gage, Mira Referring Unavailable Tidwell, Aaron Primary Care Unavailable Gage, Mira Attending Unavailable Tidwell, Aaron Primary Care Unavailable Gage, Mira Attending Unavailable Gage, Mira Referring Unavailable Tidwell, Aaron Primary Care Unavailable Gage, Mira Attending Unavailable Gage, Mira Referring Unavailable Tidwell, Aaron Primary Care Unavailable Gage, Mira Attending Unavailable Gage, Mira Referring Unavailable Tidwell, Aaron Primary Care Unavailable Gage, Mira Attending Unavailable Gage, Mira Referring Unavailable Tidwell, Aaron Primary Care Unavailable Gage, Mira Attending Unavailable Gage, Mira Referring Unavailable Tidwell, Aaron Primary Care Unavailable Fascione, Nora Attending Unavailable Malys, Meche Referring Unavailable Tidwell, Aaron Primary Care Unavailable Gage, Mira Consulting Unavailable Gage, Mira Attending Unavailable Gage, Mira Referring Unavailable Tidwell, Aaron Primary Care Unavailable JennyHuang pittman Attending Unavailable Tidwell, Aaron Referring Unavailable Gage, Mira Attending Unavailable Tidwell, Aaron Primary Care Unavailable Gage, Mira Referring Unavailable Tidwell, Aaron Primary Care Unavailable Gage, Mira Attending Unavailable Jose Breaux Attending Unavailable Tidwell, Aaron Referring Unavailable Soto, Coleen Attending Unavailable Tidwell, Aaron Referring Unavailable Gage, Mira Attending Unavailable Gage, Mira Referring Unavailable Tidwell, Aaron Primary Care Unavailable Essex, Huang Attending Unavailable Essex, Huang Referring Unavailable Tidwell, Aaron Primary Care Unavailable Gage, Mira Attending Unavailable Gage, Mira Referring Unavailable Tidwell, Aaron Primary Care Unavailable Soto, Coleen Attending Unavailable Soto, Coleen Referring Unavailable Tidwell, Aaron Primary Care Unavailable Soto, Coleen Attending Unavailable Soto, Coleen Referring Unavailable Tidwell, Aaron Primary Care Unavailable Fascione, Nora Attending Unavailable Malys, Meche Referring Unavailable Tidwell, Aaron Primary Care Unavailable Mira Almonte Consulting Unavailable Coleen Soto Attending Unavailable Coleen Soto Referring Unavailable Aaron Tidwell Primary Care Unavailable EssexHuang pittman Attending Unavailable PROBLEMS PROBLEMS DATE TYPE CONDITION / CODE ATTENDING STATUS SOURCE 09/05/2018 Unknown N17.9 - Acute kidney Mira Almonte Active [facility] failure, unspecified / Community N17.9(ICD-10) Hospital Repository 08/28/2018 Unknown R06.09 - Other forms Soto, Active [facility] of dyspnea / [facility] R06.09(ICD-10) Hospital Repository 09/03/2018 Unknown K92.2 - Jenny, Active [facility] Gastrointestinal [facility] hemorrhage, Hospital unspecified / Repository K92.2(ICD-10) 09/03/2018 Unknown K92.1 - Melena / [place], Active [facility] K92.1(ICD-10) [facility] Hospital Repository 09/03/2018 Unknown K64.8 - Other Jenny, Active [facility] hemorrhoids / [facility] K64.8(ICD-10) Hospital Repository 09/03/2018 Unknown K57.30 - Jenny, Active [facility] Diverticulosis of [facility] large intestine Hospital without perforation or Repository abscess without bleeding / K57.30(ICD-10) 08/08/2018 Unknown R91.1 - Solitary Soto, Active [facility] pulmonary nodule / [facility] R91.1(ICD-10) Hospital Repository 08/13/2018 Unknown Z45.2 - Encounter for Mira Almonte Active [facility] adjustment and Community management of vascular Hospital access device / Repository Z45.2(ICD-10) 08/28/2018 Unknown I87.2 - Venous Fascione, Active [facility] insufficiency [facility] (chronic) (peripheral) Hospital / I87.2(ICD-10) Repository 06/28/2018 Unknown Z01.818 - Encounter Mira Almonte Active [facility] for other [facility] preprocedural Hospital examination / Repository Z01.818(ICD-10) 06/29/2018 Unknown E83.59 - Other Mira Almonte Active [facility] disorders of calcium Community metabolism / Hospital E83.59(ICD-10) Repository 05/01/2018 Unknown F11.20 - Opioid Basali, Ayman Active [facility] dependence, Community uncomplicated / Hospital F11.20(ICD-10) Repository 04/10/2018 Unknown I48.2 - Chronic atrial Alvarado, Epifanio Active [facility] fibrillation / Community I48.2(ICD-10) Hospital Repository 04/10/2018 Unknown I50.33 - Acute on Alvarado, Enterprise Active [facility] chronic diastolic Community (congestive) heart Hospital failure / Repository I50.33(ICD-10) 03/26/2018 Unknown N18.3 - Chronic kidney Mira Almonte Active [facility] disease, stage 3 Community (moderate) / Hospital N18.3(ICD-10) Repository 01/09/2018 Active 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) / [place] D50.0(ICD-10) Repository 02/20/2018 Active Type 2 diabetes NA Active [facility] mellitus with diabetic Clinic Main chronic kidney disease [place] / E11.22(ICD-10) Repository 01/24/2018 Active Elevated white blood NA Active [facility] cell count, Clinic Main unspecified / [place] D72.829(ICD-10) Repository 04/12/2017 Active Chronic kidney NA Active [facility] disease, stage 3 Clinic Main (moderate) / [facility] N18.3(ICD-10) Repository 01/09/2018 Active Shortness of breath / NA Active [facility] R06.02(ICD-10) Clinic Main [place] Repository 01/09/2018 Active Hypotension, NA Active [facility] unspecified / Clinic Main I95.9(ICD-10) [facility] Repository 01/09/2018 Active Unknown / UNK(Unknown) 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, 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) Clinic Main [place] Repository 01/01/2018 Unknown I83.028 - Varicose Redd, Ari Chi Active [facility] veins of left lower Community extremity with ulcer Hospital other part of lower Repository leg / I83.028(ICD-10) 01/01/2018 Unknown R60.9 - Edema, Redd, Ari Chi Active [facility] unspecified / Community R60.9(ICD-10) Hospital Repository 01/01/2018 Unknown R53.81 - Other malaise Redd, Ari Chi Active [facility] / R53.81(ICD-10) Community Hospital Repository 01/01/2018 Unknown I83.892 - Varicose Redd, Ari Chi Active [facility] veins of left lower Community extremity with other Hospital complications / Repository I83.892(ICD-10) 01/01/2018 Unknown M48.061 - Spinal Redd, Ari Chi Active [facility] stenosis, lumbar Community region without Hospital neurogenic Repository claudication / M48.061(ICD-10) 01/01/2018 Unknown M54.16 - Redd, Ari Chi Active [facility] Radiculopathy, lumbar Community region / Hospital M54.16(ICD-10) Repository 01/16/2018 Unknown R94.31 - Abnormal Alvarado, Epifanio Active [facility] electrocardiogram Community [ECG] [EKG] / Hospital R94.31(ICD-10) Repository 11/17/2017 Unknown Z12.31 - Encounter for Yaw, Active [facility] screening mammogram [facility] for malignant neoplasm Hospital of breast / Repository Z12.31(ICD-10) 12/25/2017 Unknown E11.622 - Type 2 Alvarado, Enterprise Active [facility] diabetes mellitus with Community other skin ulcer / Hospital E11.622(ICD-10) Repository 10/04/2017 Unknown I50.30 - Unspecified Jopperi, Terence Active [facility] diastolic (congestive) [facility] heart failure / Hospital I50.30(ICD-10) Repository 09/29/2017 Active Anemia, unspecified / NA Active [facility] D64.9(ICD-10) Clinic Main [place] Repository 09/28/2017 Unknown R06.02 - Shortness of Corniello, Active [facility] breath / [facility] VAMP STRAP IRONER-[facility] R06.02(ICD-10) Hospital Repository PROCEDURES PROCEDURES No Procedure Records FoundRESULTS RESULTS RENAL PROFILE Collected: 09/05/2018 Status: F Source: [facility] 8[facility] TYPE CODE TESTS RESULT OUT OF RANGE REFERENCE UNITS LAB L501.0100 74-106 mg/dL High GLU 112 Result Comment: Fasting Glucose result from 100 to 125 mg/dL suggests IMPAIRED HOMEOSTASIS per A.D.A. criteria. Please note revised GLUCOSE reference range effective 2017. LAB L501.1000 7-18 mg/dL High BUN 30 LAB L501.1100 0.55-1.02 mg/dL High CREAT,SERUM 1.08 Result Comment: The validity of the calculated GFR AND GFRAA in patients over 70 years has not been determined. Clinical correlation is essential. LAB L501.1110 >60 mL/min Low EST GFR 53 Result Comment: Non- GFR Calc LAB L501.1115 >60 mL/min Normal EST GFR - AA 64 Result Comment: GFR Calc LAB L501.1300 10-20 R[facility] High BUN/CRE 27.8 LAB L501.1800 3.2-5.0 g/dL Normal ALB 3.6 LAB L501.2200 8.5-10.1 mg/dL CA Normal 9.4 LAB L501.2300 2.5-4.9 mg/dL Normal PHOS 3.5 LAB L501.5300 136-145 mmol/L NA Normal 141 LAB L501.5600 3.5-5.1 mmol/L K Normal 4.1 LAB L501.5900 98-107 mmol/L CL Normal 103 LAB L501.6100 21.0-32.0 mmol/L Normal CO2 29.0 Performed By: #### L500.3600 #### [facility] Laboratory [address] [place], [address] VITAMIN D 1,25-DIHYDROXY Collected: 09/05/2018 Status: F Source: [place] 8:40 AM [facility] REPOSITORY TYPE CODE TESTS RESULT OUT OF RANGE REFERENCE UNITS LAB L3300.0960 19.9-79.3 pg/mL Normal VITD 1,25 32.5 71374 Result Comment: Performed at: [facility] [address] [id number] Vacation Sales Advisor: Gertrude Melvin MD, Phone: [phone] Performed By: #### L3300.0960 #### [facility] (refer to report for specific site) refer to report for address and phone number PULMONARY FUNCTION Observed: 09/04/2018 Status: F Source: [place] REPORT COMP 5:44 AM [facility] REPOSITORY [facility] Pulmonary Services/Neurology [address] [place] [address] MR#: [id number] Acct: [id number] Name: DI ZAPATA Rep #: [id number] : 1945 72 From: Deacon Wylie MD Referring Dr: Coleen Soto VAMP STRAP IRONER Status: REG CLI Ordering Dr: Date: Location: PSN Sex: F C COMPLETE PULMONARY FUNCTION TEST INTERPRETATION Brief HPI: Patient is a 72 year old female, currently under the care of Coleen Soto, who presents to [facility] for complete pulmonary function tests secondary to diagnosis of dyspnea. Respiratory therapist reports good effort and reproducible results. Interpretation: Forced expiration spirometry shows no large airways obstructive ventilatory defect with an FEV1 of 57% predicted. There is no significant bronchodilator response by strict ATS criteria. Spirograms are of good quality and plateau normally. The respiratory flow volume loop shows a normal pattern. Lung volumes by body plethysmography show a decreased total lung capacity at 2.7 L, 59% predicted. All other lung volumes are reduced symmetrically. Diffusion capacity by carbon monoxide is decreased at 53% predicted. The airway resistance is normal. Compared to previous pulmonary function tests from 07/11/2017, there has been a significant improvement in DLCO by 121%. Impression: Irreversible moderate restrictive ventilatory defect with a symmetric reduction diffusing capacity. There has been some improvement compared to previous testing. 09/04/18 0544 <Electronically signed by Deacon Wylie MD> Date Deacon Wylie MD CC: Deacon Wylie MD; Coleen Soto; Aaron Tidwell MD Date Dictated: 09/03/181356 Date Transcribed: 09/03/181356 Oxyacetylene Cutter: SJ Signed 6 MINUTE WALK TEST Observed: 08/29/2018 Status: F Source: [place] 11:26 AM [facility] REPOSITORY [facility] Pulmonary Services/Neurology [address] [place] [id number] MR#: [id number] Acct: [id number] Name: DI ZAPATA Rep #: [id number] : 1945 72 From: Eliu Mitchell DO Referring Dr: Coleen Soto NP Date: Ordering Dr: Sex: F C Location: PSN PSN 6 Minute Walk Test - 6 Minute Walk Test 6 Minute Walk Test: 6 Minute Walk Test PSN:6-Minute Walk Test Start: 08/28/18 11:20 Freq: Status: Active Protocol: RESP.6MINW Document 08/28/18 11:23 FR (Rec: 08/28/18 11:28 FR [id number]) 6 Minute Walk Test Date Performed 08/28/18 Time Performed 11:00 Height 5 ft 3 in Weight: 170 lb Weight in Pounds 170.0 lbs Assistive device used: None Pre-test Oxygen Delivery Method Room Air Pulse Ox (%) 97 Pulse Rate (60-100 beats/min) 81 Dyspnea Christiano Scale (0-10) 1 Exertion Christiano Scale (6-20) 6 1st minute Oxygen Delivery Method Room Air Pulse Ox (%) 96 Pulse Rate (60-100 beats/min) 85 2nd minute Oxygen Delivery Method Room Air Pulse Ox (%) 96 Pulse Rate (60-100 beats/min) 87 3rd minute Oxygen Delivery Method Room Air Pulse Ox (%) 93 Pulse Rate (60-100 beats/min) 91 4th minute Oxygen Delivery Method Room Air Pulse Ox (%) 95 Pulse Rate (60-100 beats/min) 93 5th minute Oxygen Delivery Method Room Air Pulse Ox (%) 95 Pulse Rate (60-100 beats/min) 93 6th minute Oxygen Delivery Method Room Air Pulse Ox (%) 95 Pulse Rate (60-100 beats/min) 92 Post-test Oxygen Delivery Method Room Air Pulse Ox (%) 97 Pulse Rate (60-100 beats/min) 83 Dyspnea Christiano Scale (0-10) 1 Exertion Christiano Scale (6-20) 7 Full Laps Walked 18 Partial Lap, Number of Tiles Walked 48 Total Distance Walked (ft) 1110 - Interpretation Interpretation: The patient ambulated 1110 feet over the course of 6 minutes beginning on room air without assistive devices or breaks. Pretesting oxygen saturation was noted to be 97% on room air. With ambulation, the leah oxygen saturation was 93%. This represents a significant exertional oxygen desaturation. - Recommendations Recommendations: There is no indication for the use of supplemental oxygen at this time. However, close interval follow-up is recommended, given the degree of oxygen desaturation noted during this study. 08/29/18 1126 <Electronically signed by Eliu Mitchell DO> Date Eliu Mitchell DO CC: Date Dictated: 08/29/18 1124 Date Transcribed: 08/29/18 112 Oxyacetylene Cutter: Eliu Mitchell DO Signed CHEST WITH CONTRAST Observed: 08/23/2018 Status: F Source: [facility] 2:24 PM [facility] REPOSITORY [facility] Imaging Services [address] [place] [address] Chest WITH Contrast MR#: [id number] Acct: [id number] Name: DI ZAPATA Rep #: [id number] : 1945 F 72 From: Usama Day MD PCP: Aaron Tidwell MD Status: REG CLI Study: Chest WITH Contrast Date of Exam: 08/23/18 Exam# [id number] Ordering Dr: Coleen Soto STUDY: CT CHEST WITH CONTRAST REASON FOR EXAM: Female, 72 years old. Pulmonary nodule RADIATION DOSAGE (If Supplied By Facility): CTDIvol = ( 9.78 ) mGy, DLP = ( 374.65 ) mGycm TECHNIQUE: Transaxial imaging was performed following intravenous administration of 100 ml of Isovue 300 contrast material. Coronal and sagittal reformatted images were created. Individualized dose optimization techniques were used for this CT. COMPARISON: 07/19/2017 FINDINGS: There is stable scarring in the bilateral lower lobes, right middle lobe and in the lingula. There are no pulmonary infiltrates or pleural effusions. There are no pulmonary nodules or masses. There is no pneumothorax. The heart and pericardium are within normal limits. There is no thoracic lymphadenopathy. There is stable aneurysmal dilatation of the ascending aorta, measuring 4.4 cm. There is a stable small hiatal hernia. There are no destructive osseous lesions. CT/Chest WITH Contrast IMPRESSION: Stable scarring in the lung bases. No pulmonary nodules or masses. No pulmonary infiltrates or pleural effusions. Stable 4.4 cm aneurysm of the ascending aorta. Electronically Signed: Usama Day, at 9:36 EST Tel , Service support , CC: Coleen Soto; Aaron Tidwell MD Oxyacetylene Cutter: Signed OPERATIVE REPORT - Observed: 08/20/2018 Status: F Source: [place] ENDOSCOPY 9:51 AM [facility] REPOSITORY [facility] Medical Records Department [address] [place] [address] Operative Report - Endoscopy MR#: [id number] Acct: [id number] Name: DI ZAPATA Rep #: [id number] : 1945 72 From: Huang Alvarado MD PCP: Aaron Tidwell MD Status: REG [facility] Patient Name: iD Zapata Procedure Date: 08/20/2018 9:22 AM Date of : 1945 Age: 72 Procedure: Colonoscopy Indications: Melena, Gastrointestinal bleeding Providers: Huang Alvarado MD Medicines: See the Anesthesia note for documentation of the administered medications Patient Profile: This is a 72 year old female. Refer to note in patient chart for documentation of history and physical. Last Colonoscopy: more than 3 years ago. Complications: No immediate complications. Procedure: Pre-Anesthesia Assessment: - Prior to the procedure, a History and Physical was performed, and patient medications and allergies were reviewed. The patient's tolerance of previous anesthesia was also reviewed. The risks and benefits of the procedure and the sedation options and risks were discussed with the patient. All questions were answered, and informed consent was obtained. Prior Anticoagulants: The patient has taken no previous anticoagulant or antiplatelet agents. ASA Grade Assessment: III - A patient with severe systemic disease. After reviewing the risks and benefits, the patient was deemed in satisfactory condition to undergo the procedure. After I obtained informed consent, the scope was passed under direct vision. Throughout the procedure, the patient's blood pressure, pulse, and oxygen saturations were monitored continuously. The adult colonoscope was introduced through the anus and advanced to the cecum, identified by appendiceal orifice and ileocecal valve. The colonoscopy was performed without difficulty. The patient tolerated the procedure well. The quality of the bowel preparation was good. Scope In: 9:34:59 AM Scope Withdrawal Time 0 hours 6 minutes 4 seconds Scope Out: 9:45:25 AM Total Procedure Duration Time 0 hours 10 minutes 26 seconds Findings: A few small-mouthed diverticula were found in the sigmoid colon. No biopsies or other specimens were collected for this exam. Non-bleeding internal hemorrhoids were found during retroflexion. The hemorrhoids were mild and small. The exam was otherwise without abnormality. Impression: - Diverticulosis in the sigmoid colon. No specimens collected. - Non-bleeding internal hemorrhoids. - The examination was otherwise normal. Recommendation: - Discharge patient to home. - Resume previous diet. - Continue present medications. - Repeat colonoscopy in 10 years for screening purposes. - Return to my office PRN. Procedure Code(s): --- Professional --- 16317, Colonoscopy, flexible; diagnostic, including collection of specimen(s) by brushing or washing, when performed (separate procedure) Diagnosis Code(s): --- Professional --- K64.8, Other hemorrhoids K92.1, Melena (includes Hematochezia) K92.2, Gastrointestinal hemorrhage, unspecified K57.30, Diverticulosis of large intestine without perforation or abscess without bleeding CPT copyright 2017 [employer]. All rights reserved. The codes documented in this report are preliminary and upon certified professional coder review may be revised to meet current compliance requirements. MD Huang Romero MD 08/20/2018 9:51:29 AM This report has been signed electronically. Number of Addenda: 0 Note Initiated On: 08/20/2018 9:22 AM 08/20/1851 Date Huang Alvarado MD Cosigner Signature: Date (if indicated) CC: Huang Alvarado MD; Aaron Tidwell MD Date Dictated: 08/20/18921 Date Transcribed: Oxyacetylene Cutter: MARY BETH Signed BEDSIDE GLUCOSE Collected: 08/20/2018 Status: F Source: [place] 8:58 AM [facility] REPOSITORY TYPE CODE TESTS RESULT OUT OF RANGE REFERENCE UNITS LAB L501.080 70-110 mg/dL Normal BEDSIDE GLU 93 Result Comment: MANAGEMENT OF PATIENT CARE PER NURSING PROTOCOL Performed By: #### L501.080 #### [facility] Laboratory Point of Care [address] [place] [address] PROGRESS Observed: 08/09/2018 Status: COMPLETED Source: [place] 10:42 AM [facility] REPOSITORY HNO ID: [id number] Author: Becka Kingsley Service: (none) Author Type: Registered Nurse Type: Progress Notes Filed: 08/11/2018 5:16 PM Note Text: PRIMARY CARE COORDINATION CHART REVIEW Patient identified for Care Coordination from: High Risk Registry Last PCP office visit: 07/26/2018 Next OV: 01/25/2019 CHRONIC DX: CKD CARE GAPS: Scheduled for colonoscopy with Dr. Alvarado on 08/20/18 at [facility] UTILIZATION WITHIN THE LAST 12 MONTHS: ? none ? HOSPITAL: yes, [facility] ? SNF: TCU DOES THIS PATIENT HAVE AN ADVANCE DIRECTIVE? ? No PRIMARY CARE COORDINATION OUTREACH PLAN: ? 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 ? ? August 09, 2018 DIANA Observed: 08/09/2018 Status: COMPLETED Source: [place] 12:00 AM [facility] REPOSITORY Patient Outreach (INTMWS) DI ZAPATA ([id number]) 1945 F Date Time Provider Department 08/09/18 BECKA HONG During your visit today, we recorded the following information about you: Becka Aguayo RN 08/11/2018 5:16 PM Signed PRIMARY CARE COORDINATION CHART REVIEW Patient identified for Care Coordination from: High Risk Registry Last PCP office visit: 07/26/2018 Next OV: 01/25/2019 CHRONIC DX: CKD CARE GAPS: Scheduled for colonoscopy with Dr. Alvarado on 08/20/18 at [facility] UTILIZATION WITHIN THE LAST 12 MONTHS: ? none ? HOSPITAL: yes, [facility] ? SNF: TCU DOES THIS PATIENT HAVE AN ADVANCE DIRECTIVE? ? No PRIMARY CARE COORDINATION OUTREACH PLAN: ? 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 ? ? August 09, 2018 Allergies As of Date: 08/09/2018 Noted Allergy Reaction BACTRIM (SULFAMETHOXAZOLE-TRIMETH*06/29/2007 2 - Rash CARDURA (DOXAZOSIN) 04/24/2013 16 - Unknown CEFTRIAXONE 08/10/2017 14 - Other: See Comments Comments: Veins turned red DEMEROL (MEPERIDINE (PF)) 04/18/2006 DOXYCYCLINE 04/18/2006 NORVASC (AMLODIPINE BESYLATE) 04/06/2011 7 - Swelling SULFA (SULFONAMIDE ANTIBIOTICS) 07/04/2005 2 - Rash VASOTEC (ENALAPRIL MALEATE) 04/18/2006 3 - Cough VISTARIL (HYDROXYZINE HCL) 04/18/2006 Date Reviewed: 07/26/2018 Reviewed by: Desirae Abbasi LPN - Fully Assessed Prescriptions as of 08/09/2018 Sig: FLUOXETINE 20 MG CAPSULE Take 1 capsule by mouth once * POLYSACCHARIDE IRON COMPLEX 1* Take 1 capsule by mouth once * PREDNISONE 10 MG TABLET 10 mg MWF and 5 mg on all oth* METOPROLOL TARTRATE 25 MG TAB* Take 1 tablet by mouth twice * OXYCODONE-ACETAMINOPHEN 5 MG-* Take 1 tablet by mouth every * COMPOUNDED PRESCRIPTION Apply 1 application to affect* FUROSEMIDE 20 MG TABLET Take 1 tablet by mouth every * POTASSIUM CHLORIDE ER 10 MEQ * Take 1 tablet by mouth daily * GABAPENTIN 100 MG CAPSULE Take 100 mg by mouth four carlos* COMPOUNDED PRESCRIPTION Thigh High Compression Stocki* Problem List As Of Date 08/09/2018 Noted Resolved Hypertension goal BP (blood pressure) < 150/90 *INVALID FOR* More... Rheumatoid arthritis of multiple sites with neg*INVALID FOR* More... Ankylosing spondylitis (HCC) [M45.9] INVALID FOR*07/26/2018 More... Other diseases of lung, not elsewhere classifie*INVALID FOR*02/11/2015 More... SLEEP APNEA NOS [G47.30] INVALID FOR*04/18/2006 Obesity, unspecified [E66.9] INVALID FOR*02/11/2015 Impaired fasting glucose [R73.01] INVALID FOR*02/27/2012 More... 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] INVALID FOR*02/11/2015 Candidal intertrigo [B37.2] INVALID FOR*02/11/2015 Intertrigo [L30.4] INVALID FOR*02/11/2015 Eczema Dermatitis and Other Eczema, due to Unsp*INVALID FOR*09/28/2016 Diabetes mellitus (HCC) [E11.9] INVALID FOR*01/05/2015 Venous insufficiency [I87.2] INVALID FOR*07/15/2015 Edema [R60.9] INVALID FOR*02/11/2015 Pain in joint, shoulder region [M25.519] INVALID FOR*02/11/2015 Disorders of bursae and tendons in shoulder reg*INVALID FOR*09/28/2016 Diabetes mellitus type 2, controlled [E11.9] INVALID FOR*02/11/2015 DM (diabetes mellitus), type 2 (HCC) [E11.9] INVALID FOR*07/15/2015 Venous insufficiency (chronic) (peripheral) [I8*INVALID FOR*02/20/2018 More... Atrial fibrillation (HCC) [I48.91] INVALID FOR* More... Type 2 diabetes mellitus with diabetic chronic *INVALID FOR*01/06/2016 Lymphedema, not elsewhere classified [I89.0] INVALID FOR*05/17/2017 Type 2 diabetes mellitus with stage 3 chronic k*INVALID FOR* More... Pulmonary nodule [R91.1] INVALID FOR* More... Systolic congestive heart failure (HCC) [I50.20]INVALID FOR* More... Hydronephrosis [N13.30] INVALID FOR*07/26/2018 UI (urinary incontinence) [R32] INVALID FOR* Patent ductus arteriosus [Q25.0] INVALID FOR*07/26/2018 More... S/P Maze operation for atrial fibrillation [Z98*INVALID FOR* More... CKD (chronic kidney disease) stage 3, GFR 30-59*INVALID FOR* More... Anemia, unspecified [D64.9] INVALID FOR*07/26/2018 Hypoxemia requiring supplemental oxygen [R09.02*INVALID FOR*10/19/2017 Hypercalcemia [E83.52] INVALID FOR* Hypervitaminosis D (rule out granulomatous dise*INVALID FOR* Venous stasis ulcers of both lower extremities *INVALID FOR* Depressive disorder [F32.9] INVALID FOR* Lumbar radiculopathy, chronic [M54.16] INVALID FOR* More... Gait abnormality [R26.9] INVALID FOR* Pyoderma gangrenosum [L88] INVALID FOR*02/21/2018 Anemia due to blood loss [D50.0] INVALID FOR* Calcinosis [E83.59] INVALID FOR* Encounter Status:Closed by BECKA KINGSLEY on 08/11/18 PULMONARY VISIT REPORT Observed: 08/08/2018 Status: F Source: [place] 8:52 AM [facility] REPOSITORY [facility] [address] [place] [address] OFFICE VISIT Date of Service: 08/08/18 MR#: [id number] Acct: [id number] Name: DI ZAPATA Rep #: [id number] : 1945 Provider: Coleen Soto Age/Sex: 72/F Location: [facility].PMW Status: Signed Assessment AND Plan Problems 1. Dyspnea on exertion R06.09 2. Lung nodule R91.1 3. Heart failure with 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 I50.30 4. LYN on CPAP G47.33; Z99.89 Plan This patient was somehow lost to follow-up. Need to reassess testing, plan for CT of the chest with contrast if okay by nephrology to evaluate previously seen pulmonary nodule and concern for sarcoidosis. Patient also has a history of pulmonary hypertension, plan to evaluate for exertional hypoxia with a simple pulmonary stress test. Also plan to reevaluate pulmonary function with a complete pulmonary function test. Follow- up with Dr. Wylie after obtaining all of these testing, to review results. Patient continues noncompliance with Pap therapy, states that she is unable to tolerate the mask. Orders Orders: Plan Detail Follow Up 2 Months (BWA) HPI 3 M FU: Chief Complaint: Shortness of breath on exertion HPI Comments Details: This patient presents the office today to follow-up on her previously seen lung nodule. She is ambulatory, currently on room air and accompanied by her . She has not been seen in the ED or urgent care for respiratory illnesses In the past 6 months. She has not required Atarax or prednisone for any breathing problems in the past 6 months. She is not currently on any inhalers. She follows with nephrology regarding her renal failure. She is compliant with Lasix 20 mg daily. She follows with wound center regarding lower extremity wounds and edema. She continues to experience shortness of breath on exertion only, this is not worsened. She denies any cough, sputum production or hemoptysis. She has not experienced any wheezing, chest tightness, chest pain or palpitations. She denies any fever, chills or body aches. She continues noncompliance with Pap therapy, states she is unable to tolerate the Pap device secondary to nightmares that she has had in the past while wearing Pap therapy. Intake Vital Signs08/08/18 Height 5 ft 3 in 08/08/18 Weight: 173 lb Intake Visit Reasons: 3 M FU Census Enumerator Required: No Is patient in pain?: No Allergies amlodipine besylate [From Norvasc] Allergy (Verified 08/08/18 08:19) Unknown ceftriaxone Allergy (Verified 08/08/18 08:19) Rash doxazosin [From Cardura] Allergy (Verified 08/08/18 08:19) Unknown doxazosin mesylate [From Cardura] Allergy (Verified 08/08/18 08:19) Other doxycycline Allergy (Verified 08/08/18 08:19) Unknown enalapril maleate [From Vasotec] Allergy (Verified 08/08/18 08:19) Rash enalaprilat dihydrate [From Vasotec] Allergy (Verified 08/08/18 08:19) Rash hydroxyzine HCl [From Vistaril] Allergy (Verified 08/08/18 08:19) Rash hydroxyzine pamoate [From Vistaril] Allergy (Verified 08/08/18 08:19) Rash meperidine HCl [From Demerol] Allergy (Verified 08/08/18 08:19) Rash Sulfa (Sulfonamide Antibiotics) Allergy (Verified 08/08/18 08:19) Hives sulfamethoxazole [From Bactrim] Allergy (Verified 08/08/18 08:19) Hives trimethoprim [From Bactrim] Allergy (Verified 08/08/18 08:19) Hives Medications Metoprolol Tartrate [Lopressor (beta alok)] 25 mg PO BID 12/12/17 [History Confirmed 08/08/18] Potassium Chloride [K-Tab ER] 10 meq PO QDAY 12/12/17 [History Confirmed 08/08/18] furosemide 20 mg tablet 20 mg PO DAILY #30 tab 07/02/18 [Rx Confirmed 08/08/18] fluoxetine 20 mg capsule 20 mg PO DAILY 08/01/18 [History Confirmed 08/08/18] polysaccharide iron complex 150 mg iron capsule 150 mg PO DAILY cap 08/01/18 [History Confirmed 08/08/18] prednisone 10 mg tablet See Rx Instructions PO DAILY 08/08/18 [History Confirmed 08/08/18] [facility] Medical History Venous insufficiency (chronic) (peripheral) (Chronic) Right leg pain (Chronic) Ulcer of left lower extremity with fat layer exposed (Chronic) Calciphylaxis (Chronic) Ulcer of left lower extremity with fat layer exposed (Chronic) Ulcer of right lower extremity with fat layer exposed (Chronic) Pain in right leg (Chronic) Pain in left leg (Chronic) Delayed wound healing (Chronic) Localized edema (Chronic) Other intermediate (current) drug therapy (Chronic) Abnormal screening CT of chest (Chronic) LYN on CPAP (Chronic) Acute on chronic diastolic (congestive) heart failure (Chronic) Calcinosis (Chronic) Lower GI bleed (Acute) Chronic A. fib on Xarelto (Acute) Recurrent falls (Acute) Generalized weakness (Acute) Weakness (Acute) Anemia (Acute) Edema (Chronic) Pulmonary hypertension (Chronic) Atrial fibrillation (Chronic) Chronic diastolic heart failure (Chronic) Diabetes mellitus (Chronic) Chronic kidney disease (Chronic) Lumbar spinal stenosis (Chronic) PAOD (peripheral arterial occlusive disease) (Chronic) Venous stasis ulcer (Chronic) Depression (Chronic) Neuropathic pain (Chronic) Hypokalemia (Acute) Edema, lower extremity (Chronic) Pulmonary hypertension, secondary (Chronic) Dyspnea on exertion (Acute) Heart failure with 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 (Chronic) Cellulitis (Resolved) 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 (Chronic) Chronic atrial fibrillation (Chronic) Status post placement of implantable loop recorder (Chronic) Other secondary pulmonary hypertension (Chronic) Chronic diastolic (congestive) heart failure (Chronic) GI bleeding (Acute) Symptomatic anemia (Chronic) Hypertension (Chronic) Type 2 diabetes mellitus (Chronic) Lung nodule (Chronic) Coumadin-induced coagulopathy (Resolved) Chronic kidney disease, stage 3 (Chronic) Shortness of breath (Acute) 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) PAD (peripheral artery disease) (Chronic) Venous stasis ulcer of left lower leg with edema of left lower leg (Chronic) Venous stasis ulcer of right lower leg with edema of right lower leg (Chronic) Arthralgia (Chronic) Myalgia (Chronic) Mass of soft tissue of left lower extremity (Chronic) Mass of soft tissue of right lower extremity (Chronic) Sarcoidosis (Acute) GERD (gastroesophageal reflux disease) (Chronic) LYN (obstructive sleep apnea) (Chronic) Hypersomnia (Resolved) Surgical History History of cardiac radiofrequency ablation (RFA) (Chronic) History of maze procedure (Chronic) H/O skin graft (Resolved) S/P PICC central line placement (Chronic) History of hysterectomy (Resolved) History of loop recorder (Resolved) History of lymph node excision (Resolved) History of patent ductus arteriosus (Resolved) History of removal of skin mole (Resolved) S/P laparoscopic cholecystectomy (Resolved) Status post laparoscopic [place]cy fundoplication (Resolved) h/o left foot surgery (Resolved) Family History Mother Diabetes Brother Diabetes Myocardial infarction Cancer multiple melanoma Son Hypertension Daughter Arthritis Diabetes Hypertension Brother Cancer lymphoma Social History Smoking Status: Never smoker alcohol intake: never substance use type: does not use caffeine: Yes Type: coffee, tea what type of physical activity do you participate in: other details: tredmill frequency: daily duration: 15-30 minutes/day seatbelt use: always do you feel safe at home: Yes Review of Systems Const CONSTITUTIONAL: Positive fatigue; negative anorexia, body ache, chills, daytime sleepiness, fever(s), night sweats, oral thrush, stops breathing during sleep, weight loss, sleeping in chair, headache(s), weight loss, weight gain, frequent colds, seasonal allergies, other or orthopnea EETM Ear Nose Throat Mouth: Positive hearing normal; negative hard of hearing, hoarseness, dry mouth in morning, change in vision, itchy eyes, eye pain, swallowing Difficulty, ear pain, nose bleed, mouth pain, nasal congestion, nasal discharge, post nasal drip, sinus pain, sinus pressure, sore throat, other or headache(s) Cardio Cardiovascular: Negative chest pain, chest pain at rest, chest pain with activity, irregular heart rhythm, edema, shortness of breath when lying down, palpitations, murmur or other Resp Respiratory: Positive as per HPI, shortness of breath shortness of breath: Positive with activity, cough cough: Positive non-productive and apnea; negative pain with cough, wheezing, chest congestion, chest tightness, pain on inspiration, inhalers, increase use of rescue inhalers, snoring or other Gastro Gastrointestional: Negative bloody stools, change in appetite, difficulty swallowing, reflux, hematemesis, melena stool, loose stool, constipation or other Genitourinary: Positive nocturia; negative blood in urine, pain with urination or other Musc Musculoskeletal: Negative body pain, back pain, neck pain or other Skin/Breast Skin/Breast: Negative dry skin, itching, rash, unusual bruising, breast lump or other Neuro Neurological: Negative restless legs, confusion, weakness or other Psych Psychocological: Negative abnormal sleep pattern, anxiety, thoughts of hurting self/others, hopelessness or other Lymph Lymphatic: Negative easy bleeding, easy bruising, swollen lymph nodes or other Exam Const Constitutional: Positive conversant, cooperative, in no acute respiratory distress, well developed, well nourished, good hygiene and appears older than stated age Head Head: Positive normocephalic and atraumatic; negative cyanosis of lips/distal nose Eyes Eye: Positive clear conjunctiva; negative nystagmus or scleral abnormality Ears Ear: Positive hearing normal and external ears normal; negative hard of hearing Nose Nose: Positive external nose normal and no nasal discharge; negative epistaxis Mouth Mouth: Positive oral mucosae normal, dentures, no lesions and posterior oropharynx is adequate; negative post nasal drip, malodorous breath or oral thrush present Mallampati Score: I: Mallampati Score Neck Neck: Positive normal visual inspection, full ROM and trachea midline; negative lymphadenopathy, JVD or tender Chest Wall Chest: Positive normal inspection of the chest and symmetric chest movement; negative increased A/P diameter Resp lung sounds: Positive diminished, wheeze present on forced exhalation, normal expiratory time and normal respiratory effort; negative rhonchi, rales or dullness to percussion Cardio Cardiac: Negative murmur, regular rate or regular rhythm GI GI: Positive normal to inspection; negative distended Genitourinary: Positive deferred Musc Musculoskeletal: Positive steady gait and ROM normal; negative kyphosis or scoliosis Skin Pulmonary Skin Exam: Positive intact; negative rash Pulses Pulse: Yes pulses normal x4 extremities Extremities Extremities: Yes capillary refill normal, No clubbing, No cyanosis, No edema (Bilateral lower extremity Adrián wraps intact, dry) Neuro Neurologic: Yes conversant, Yes no focal neuro deficits, Yes normal concentration, Yes understands questions, Yes cooperative, Yes normal cognition, Yes normal coordination, No tremor Lymph Lymphatic: No lymphadenopathy, No tenderness, No cervical adenopathy Psych Appearance: Positive grossly normal, eye contact and well kempt Mental Status: Positive mental status grossly normal Mood: Positive congruent mood Affect: Positive normal affect Coding Level of Care Code Off vis,est,level 4 Diagnoses Dyspnea on exertion R06.09 Lung nodule R91.1 Heart failure with 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 I50.30 LYN on CPAP G47.33; Z99.89 08/08/18 0852 <Electronically signed by Coleen RIVERA> Date Coleen KELLYC Cosigner Signature: Date (if applicable) CC: Mira Almonte DO; Aaron Tidwell MD RENAL PROFILE Collected: 08/07/2018 Status: F Source: [place] 9:19 AM [facility] REPOSITORY TYPE CODE TESTS RESULT OUT OF RANGE REFERENCE UNITS LAB L501.0100 74-106 mg/dL High GLU 226 Result Comment: Glucose result greater than or equal to 200 mg/dL suggests DIABETES MELLITUS per A.D.A. criteria. Please note revised GLUCOSE reference range effective 2017. LAB L501.1000 7-18 mg/dL High BUN 42 LAB L501.1100 0.55-1.02 mg/dL High CREAT,SERUM 1.19 Result Comment: The validity of the calculated GFR AND GFRAA in patients over 70 years has not been determined. Clinical correlation is essential. LAB L501.1110 >60 mL/min Low EST GFR 47 Result Comment: Non- GFR Calc LAB L501.1115 >60 mL/min Low EST GFR - AA 57 Result Comment: GFR Calc LAB L501.1300 10-20 RATIO High BUN/CRE 35.3 LAB L501.1800 3.2-5.0 g/dL Normal ALB 3.4 LAB L501.2200 8.5-10.1 mg/dL CA Normal 8.6 LAB L501.2300 2.5-4.9 mg/dL Normal PHOS 2.6 LAB L501.5300 136-145 mmol/L NA Normal 138 LAB L501.5600 3.5-5.1 mmol/L K Normal 3.7 Result Comment: Slight Hemolysis, Result may be falsely increased. LAB L501.5900 98-107 mmol/L Normal CL 103 LAB L501.6100 21.0-32.0 mmol/L Normal CO2 24.0 Performed By: #### L500.3600 #### [facility] Laboratory [address] [place], [place], [id number] VITAMIN D 1,25-DIHYDROXY Collected: 08/07/2018 Status: F Source: [place] 9:19 AM [facility] REPOSITORY TYPE CODE TESTS RESULT OUT OF RANGE REFERENCE UNITS LAB L3300.0960 19.9-79.3 pg/mL Normal VITD 1,25 23.4 94712 Result Comment: Performed at: [facility] Lab[address] [id number] Vacation Sales Advisor: Gertrude Melvin MD, Phone: [phone] Performed By: #### L3300.0960 #### [facility] (refer to report for specific site) refer to report for address and phone number SURGERY VISIT REPORT Observed: 08/02/2018 Status: F Source: [place] 1:17 PM [facility] REPOSITORY [facility] [address] [place] [address] OFFICE VISIT Date of Service: 08/01/18 MR#: [id number] Acct: [id number] Name: DI ZAPATA Rep #: [id number] : 1945 Provider: Huang Alvarado MD Age/Sex: 72/F Location: [facility] Status: Signed Intake Vital Signs08/01/18 Height 5 ft 3 in 08/01/18 Weight: 176 lb Intake Visit Reasons: C-Scope Consult Chief Complaint: sodium thiosulfate Census Enumerator Required: No Is patient in pain?: No Allergies amlodipine besylate [From Norvasc] Allergy (Verified 08/01/18 08:21) Unknown ceftriaxone Allergy (Verified 08/01/18 08:21) Rash doxazosin [From Cardura] Allergy (Verified 08/01/18 08:21) Unknown doxazosin mesylate [From Cardura] Allergy (Verified 08/01/18 08:21) Other doxycycline Allergy (Verified 08/01/18 08:21) Unknown enalapril maleate [From Vasotec] Allergy (Verified 08/01/18 08:21) Rash enalaprilat dihydrate [From Vasotec] Allergy (Verified 08/01/18 08:21) Rash hydroxyzine HCl [From Vistaril] Allergy (Verified 08/01/18 08:21) Rash hydroxyzine pamoate [From Vistaril] Allergy (Verified 08/01/18 08:21) Rash meperidine HCl [From Demerol] Allergy (Verified 08/01/18 08:21) Rash Sulfa (Sulfonamide Antibiotics) Allergy (Verified 08/01/18 08:21) Hives sulfamethoxazole [From Bactrim] Allergy (Verified 08/01/18 08:21) Hives trimethoprim [From Bactrim] Allergy (Verified 08/01/18 08:21) Hives Medications Metoprolol Tartrate [Lopressor (beta alok)] 25 mg PO BID 12/12/17 [History Confirmed 08/01/18] Potassium Chloride [K-Tab ER] 10 meq PO QDAY 12/12/17 [History Confirmed 08/01/18] Prednisone 10 mg PO DAILY 05/25/18 [History Confirmed 08/01/18] Oxycodone HCl/Acetaminophen [Percocet 5-325] 1 tab PO Q8H PRN PRN 06/28/18 [History Confirmed 08/01/18] furosemide 20 mg tablet 20 mg PO DAILY #30 tab 07/02/18 [Rx Confirmed 08/01/18] fluoxetine 20 mg capsule 20 mg PO DAILY 08/01/18 [History Confirmed 08/01/18] polysaccharide iron complex 150 mg iron capsule 150 mg PO DAILY cap 08/01/18 [History Confirmed 08/01/18] [facility] Medical History Calciphylaxis (Chronic) Ulcer of left lower extremity with fat layer exposed (Chronic) Ulcer of right lower extremity with fat layer exposed (Chronic) Pain in right leg (Chronic) Pain in left leg (Chronic) Delayed wound healing (Chronic) Localized edema (Chronic) Other prepleater (current) drug therapy (Chronic) Abnormal screening CT of chest (Chronic) LYN on CPAP (Chronic) Acute on chronic diastolic (congestive) heart failure (Chronic) Calcinosis (Chronic) Lower GI bleed (Acute) Chronic A. fib on Xarelto (Acute) Recurrent falls (Acute) Generalized weakness (Acute) Weakness (Acute) Anemia (Acute) Edema (Chronic) Pulmonary hypertension (Chronic) Atrial fibrillation (Chronic) Chronic diastolic heart failure (Chronic) Diabetes mellitus (Chronic) Chronic kidney disease (Chronic) Lumbar spinal stenosis (Chronic) PAOD (peripheral arterial occlusive disease) (Chronic) Venous stasis ulcer (Chronic) Depression (Chronic) Neuropathic pain (Chronic) Hypokalemia (Acute) Edema, lower extremity (Chronic) Pulmonary hypertension, secondary (Chronic) Dyspnea on exertion (Acute) Heart failure with 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 (Chronic) Cellulitis (Resolved) 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 (Chronic) Chronic atrial fibrillation (Chronic) Status post placement of implantable loop recorder (Chronic) Other secondary pulmonary hypertension (Chronic) Chronic diastolic (congestive) heart failure (Chronic) GI bleeding (Acute) Symptomatic anemia (Chronic) Hypertension (Chronic) Type 2 diabetes mellitus (Chronic) Lung nodule (Chronic) Coumadin-induced coagulopathy (Resolved) Chronic kidney disease, stage 3 (Chronic) Shortness of breath (Acute) 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) PAD (peripheral artery disease) (Chronic) Venous stasis ulcer of left lower leg with edema of left lower leg (Chronic) Venous stasis ulcer of right lower leg with edema of right lower leg (Chronic) Arthralgia (Chronic) Myalgia (Chronic) Mass of soft tissue of left lower extremity (Chronic) Mass of soft tissue of right lower extremity (Chronic) GERD (gastroesophageal reflux disease) (Acute) Hypersomnia (Acute) LYN (obstructive sleep apnea) (Acute) Sarcoidosis (Acute) Surgical History History of cardiac radiofrequency ablation (RFA) (Chronic) History of maze procedure (Chronic) S/P PICC central line placement (Acute) S/P laparoscopic cholecystectomy (Acute) Status post laparoscopic [place] fundoplication (Acute) h/o left foot surgery (Acute) History of loop recorder (Resolved) Family History Mother Diabetes Brother Diabetes Myocardial infarction Cancer multiple melanoma Son Hypertension Daughter Arthritis Diabetes Hypertension Brother Cancer lymphoma Social History Smoking Status: Never smoker alcohol intake: never substance use type: does not use caffeine: Yes Type: coffee, tea what type of physical activity do you participate in: other details: tredmill frequency: daily duration: 15-30 minutes/day seatbelt use: always do you feel safe at home: Yes HPI HPI HPI: HPI: DI ZAPATA, is a 72 F who presents to the office today for evaluation for possible colonoscopy I originally saw this patient in the [facility]. She was admitted at that time and found to have a low hemoglobin and an elevated PTT we did not do any colonoscopies on her at that time she was treated for GI bleed and a UTI and sent to the TCU. I saw her back in December she was gradually improving in her activities of daily living. When I saw her back in March she had a urinary tract infection she was in rehab and was not ready to undergo a colonoscopy. Since then she has had numerous debridements of her leg wound which have been successful and the wound is improving. She no longer has a urinary tract infection and I believe now is the appropriate time to do her colonoscopy. ROS General General: Yes weight change and fatigue; no appetite, colon cancer, breast cancer or weakness HEENT HEENT: Yes difficulty swallowing and eye surgery; no eye injury, swollen glands or hoarseness Endo Endocrine: No thyroid disease, diabetes mellitus, thyroid cancer, Hair loss, heat intolerance or cold intolerance Skin Skin: Yes rash; no changing moles Breast Breast: No left breast lump, right breast lump, nipple discharge, breast pain, abnormal mammogram, abnormal US or breast enlargement Musc Musculoskeletal: Yes back problems, arthritis and rheumatoid arthritis; no gout or joint pain Cardio Cardiovascular: Yes pacemaker, heart disease, atrial fibrillation and high blood pressure; no murmur, heart attack, heart stent, palpitations, shortness of breat with exertion or chest pain Psych Psychiatric: Yes depression; no anxiety or hearing voices Resp Respiratory: Yes shortness of breath, Yes sleep apnea, Yes cough, No COPD, No asthma, No emphysema, No wheezing Gastro Gastrointestinal: No abdominal pain, No nausea or vomiting, No diarrhea, No constipation, No blood in stool, No acid reflux, Yes hemorrhoids, No ulcers, No gallbladder problem, No black,tarry stools Celso Hematologic: No blood thinners, No blood disorders, No bleeding, Yes anemia, No blood clots Neuro Neurologic: No system reviewed and no additional complaints, except as docu, No as per HPI, No abnormal walking, No abnormal hearing, No abnormal movements, No abnormal speech, No behavioral changes, No burning sensations, No confusion, No seizure-like activity, No unsteadiness, No dizziness, No localized weakness, No frequent falls, No headache(s), No lack of coordination, No loss of vision, No memory loss, Yes numbness, No other visual disturbances, No radiating pain, No restless legs, No sensory deficit, No fainting, Yes tingling, No tremor(s), No weakness, No other Exam Const General: well developed, no acute distress, well hydrated Orientation: oriented to person, oriented to place, oriented to time [facility] Head: normocephalic, atraumatic Ears: external ears normal Mouth: moist mucous membranes Eyes Sclera: sclerae normal Pupils: normal by confrontation Neck Neck: no lymphadenopathy noted Neck mass: No Thyroid: symmetrical, thyroid normal Chest Chest palpation AND inspection: normal inspection of the chest Breast Palpation: No nipple discharge Resp Effort AND Inspection: normal respiratory effort Auscultation: clear to auscultation bilaterally Percussion: percussion normal Cardio Rate: regular rate Rhythm: regular rhythm Heart Sounds: no murmurs GI Palpation: soft, no masses, no hepatosplenomegaly, nontender Rectal Exam: other Other: Rectal exam deferred. Extrem General: no clubbing, cyanosis or edema, normal to inspection Assessment AND Plan Problems 1. Lower GI bleed K92.2 Plan I have discussed the above with the patient. I have offered the patient colonoscopy for evaluation. I have explained the risks/benefits of the procedure and described the procedure. I have discussed the risks with the patient, including but not limited to: infection, bleeding, perforation of the GI tract requiring emergency surgery, inability to complete the procedure, injury to any internal organs, complications of anesthesia, etc. - the patient understands and agrees to proceed. I have answered all the patient's questions to the patient's satisfaction and the patient has no further questions. The patient has been given instructions for the colon cleansing preparation. Coding Level of Care Code Off vis,est,level 3 Diagnoses Lower GI bleed K92.2 08/02/18 1317 <Electronically signed by Huang Alvarado MD> Date Huang Alvarado MD [facility] Signature: Date (if applicable) CC: Aaron Tidwell MD CNPN Observed: 07/27/2018 Status: COMPLETED Source: [place] 12:00 AM [facility] REPOSITORY Telephone (INTMWS) DI ZAPATA ([id number]) 1945 F Date Time Provider Department 07/27/18 AARON TIDWELL During your visit today, we recorded the following information about you: Peace Karimi LPN 07/27/2018 2:52 PM Signed ----- Message from Aaron Tidwell sent at 07/27/2018 2:03 PM EDT ----- Anemia and iron better. DM controlled. Kidney disease improved. Peace Safia STERN 07/27/2018 3:01 PM Signed Message left for pt to return call to a nurse. Romain Gutierrez LPN 07/27/2018 3:33 PM Signed Patient notified and voiced her understanding. Martita Simeon, RN, RN 08/01/2018 1:40 PM Signed Lab results faxed to medical records, per pt request. 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 Allergies As of Date: 07/27/2018 Noted Allergy Reaction BACTRIM (SULFAMETHOXAZOLE-TRIMETH*06/29/2007 2 - Rash CARDURA (DOXAZOSIN) 04/24/2013 16 - Unknown CEFTRIAXONE 08/10/2017 14 - Other: See Comments Comments: Veins turned red DEMEROL (MEPERIDINE (PF)) 04/18/2006 DOXYCYCLINE 04/18/2006 NORVASC (AMLODIPINE BESYLATE) 04/06/2011 7 - Swelling SULFA (SULFONAMIDE ANTIBIOTICS) 07/04/2005 2 - Rash VASOTEC (ENALAPRIL MALEATE) 04/18/2006 3 - Cough VISTARIL (HYDROXYZINE HCL) 04/18/2006 Date Reviewed: 07/26/2018 Reviewed by: Desirae Abbasi LPN - Fully Assessed Reason for Visit: Results [95] Prescriptions as of 07/27/2018 Sig: FLUOXETINE 20 MG CAPSULE Take 1 capsule by mouth once * POLYSACCHARIDE IRON COMPLEX 1* Take 1 capsule by mouth once * PREDNISONE 10 MG TABLET 10 mg MWF and 5 mg on all oth* METOPROLOL TARTRATE 25 MG TAB* Take 1 tablet by mouth twice * OXYCODONE-ACETAMINOPHEN 5 MG-* Take 1 tablet by mouth every * COMPOUNDED PRESCRIPTION Apply 1 application to affect* FUROSEMIDE 20 MG TABLET Take 1 tablet by mouth every * POTASSIUM CHLORIDE ER 10 MEQ * Take 1 tablet by mouth daily * GABAPENTIN 100 MG CAPSULE Take 100 mg by mouth four carlos* COMPOUNDED PRESCRIPTION Thigh High Compression Stocki* Problem List As Of Date 07/27/2018 Noted Resolved Hypertension goal BP (blood pressure) < 150/90 *INVALID FOR* More... Rheumatoid arthritis of multiple sites with neg*INVALID FOR* More... Ankylosing spondylitis (HCC) [M45.9] INVALID FOR*07/26/2018 More... Other diseases of lung, not elsewhere classifie*INVALID FOR*02/11/2015 More... SLEEP APNEA NOS [G47.30] INVALID FOR*04/18/2006 Obesity, unspecified [E66.9] INVALID FOR*02/11/2015 Impaired fasting glucose [R73.01] INVALID FOR*02/27/2012 More... 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] INVALID FOR*02/11/2015 Candidal intertrigo [B37.2] INVALID FOR*02/11/2015 Intertrigo [L30.4] INVALID FOR*02/11/2015 Eczema Dermatitis and Other Eczema, due to Unsp*INVALID FOR*09/28/2016 Diabetes mellitus (HCC) [E11.9] INVALID FOR*01/05/2015 Venous insufficiency [I87.2] INVALID FOR*07/15/2015 Edema [R60.9] INVALID FOR*02/11/2015 Pain in joint, shoulder region [M25.519] INVALID FOR*02/11/2015 Disorders of bursae and tendons in shoulder reg*INVALID FOR*09/28/2016 Diabetes mellitus type 2, controlled [E11.9] INVALID FOR*02/11/2015 DM (diabetes mellitus), type 2 (HCC) [E11.9] INVALID FOR*07/15/2015 Venous insufficiency (chronic) (peripheral) [I8*INVALID FOR*02/20/2018 More... Atrial fibrillation (HCC) [I48.91] INVALID FOR* More... Type 2 diabetes mellitus with diabetic chronic *INVALID FOR*01/06/2016 Lymphedema, not elsewhere classified [I89.0] INVALID FOR*05/17/2017 Type 2 diabetes mellitus with stage 3 chronic k*INVALID FOR* More... Pulmonary nodule [R91.1] INVALID FOR* More... Systolic congestive heart failure (HCC) [I50.20]INVALID FOR* More... Hydronephrosis [N13.30] INVALID FOR*07/26/2018 UI (urinary incontinence) [R32] INVALID FOR* Patent ductus arteriosus [Q25.0] INVALID FOR*07/26/2018 More... S/P Maze operation for atrial fibrillation [Z98*INVALID FOR* More... CKD (chronic kidney disease) stage 3, GFR 30-59*INVALID FOR* More... Anemia, unspecified [D64.9] INVALID FOR*07/26/2018 Hypoxemia requiring supplemental oxygen [R09.02*INVALID FOR*10/19/2017 Hypercalcemia [E83.52] INVALID FOR* Hypervitaminosis D (rule out granulomatous dise*INVALID FOR* Venous stasis ulcers of both lower extremities *INVALID FOR* Depressive disorder [F32.9] INVALID FOR* Lumbar radiculopathy, chronic [M54.16] INVALID FOR* More... Gait abnormality [R26.9] INVALID FOR* Pyoderma gangrenosum [L88] INVALID FOR*02/21/2018 Anemia due to blood loss [D50.0] INVALID FOR* Calcinosis [E83.59] INVALID FOR* Encounter Status:Closed by ROMAIN GUTIERREZ LPN on 07/27/18 CBC Collected: 07/26/2018 Status: F Source: [place] 11:19 AM [facility] REPOSITORY TYPE CODE TESTS RESULT OUT OF REFERENCE UNITS RANGE LAB WBC 3.70-11.00 k/uL WBC 10.02 LAB RBC 3.90-5.20 m/uL RBC 4.94 LAB HGB 11.5-15.5 g/dL Hemoglobin 13.6 LAB HCT 36.0-46.0 % Hematocrit 43.3 LAB MCV 80.0-100.0 fL MCV 87.7 LAB MCH 26.0-34.0 pG MCH 27.5 LAB MCHC 30.5-36.0 g/dL MCHC 31.4 LAB RDWCV 11.5-15.0 % RDW-CV High 19.3 LAB PLTCT 150-400 k/uL Platelet Count 159 LAB MPV 9.0-12.7 fL MPV 11.1 LAB ABSNUC <0.01 k/uL Absolute nRBC <0.01 Performed By: #### CBC, IRON, BMP, LIPNF, HBA1C #### [facility] [address] [place], [place] [address] IRON AND TIBC Collected: 07/26/2018 Status: F Source: [place] 11:19 AM [facility] REPOSITORY TYPE CODE TESTS RESULT OUT OF REFERENCE UNITS RANGE LAB IRN 41-186 ug/dL Iron 89 LAB TIBC 232-386 ug/dL TIBC High 427 LAB SAT 15-57 % Transferrin Saturatn 21 Performed By: #### CBC, IRON, BMP, LIPNF, HBA1C #### [facility] [address] [place], [place] [address] BASIC METABOLIC PANL Collected: 07/26/2018 Status: F Source: [place] 11:19 AM [facility] REPOSITORY TYPE CODE TESTS RESULT OUT OF REFERENCE UNITS RANGE LAB GLU 74-99 mg/dL High Glucose 148 Result Comment: The [place] Diabetes Association (ADA) provides guidance for cutoff values for fasting glucose and random glucose. The ADA defines fasting as no caloric intake for at least 8 hours. Fas ting plasma glucose results between 100 to 125 mg/dL indicate increased risk for diabetes (prediabetes). Fasting plasma glucose results greater than or equal to 126 mg/dL meet the criteria for diagnosis of diabetes. In the absence of unequivocal hyperglycemia, results should be confirmed by repeat testing. In a patient with classic symptoms of hyperglycemia or hyperglycemic crisis, random plasma glucose results greater than or equal to 200 mg/dL meet the criteria for diagnosis of diabetes. Reference: Standards of Medical Care in Diabetes 2016, [place] [employer] Association. Diabetes Care. 2016.39(Suppl 1). LAB BUN 7-21 mg/dL BUN High 25 LAB CRET 0.58-0.96 mg/dL Creatinine High 0.98 LAB NA 136-144 mmol/L Sodium 140 LAB K 3.7-5.1 mmol/L Potassium 3.7 LAB CL 97-105 mmol/L Chloride 100 LAB CO2 22-30 mmol/L CO2 26 LAB AGAP 9-18 mmol/L Anion Gap 14 LAB CA 8.5-10.2 mg/dL Calcium, Total 9.9 LAB GFRAA eGFR- Amer. >60 LAB GFRNAA . eGFR-All Other Races 56 Result Comment: eGFR (Estimated GFR) Units of measure: mL/min/1.73 meters squared eGFR is derived from the reexpressed MDRD Study equation using the following parameters: serum creatinine, age, gender and race. The creatinine assay has been calibrated to be traceable to IDMS. An eGFR <60 mL/min/1.73m2 for >3 months is consistent with chronic kidney disease. Refer to KDOQI guidelines for clinical interpretation. In patients with unstable renal function, e.g. those with acute kidney injury, the eGFR may not accurately reflect actual GFR. Performed By: #### CBC, IRON, BMP, LIPNF, HBA1C #### [facility] [address] [place], [place] [address] LIPID PANEL, NONFAST Collected: 07/26/2018 Status: F Source: [place] 11:19 AM [facility] REPOSITORY TYPE CODE TESTS RESULT OUT OF REFERENCE UNITS RANGE LAB CHOLNF <200 mg/dL Total High Cholesterol NF 203 Result Comment: <200 mg/dL, Desirable 200-239 mg/dL, Borderline high >239 mg/dL, High LAB TRIGNF <150 mg/dL Triglycerides, NF 148 Result Comment: <150 mg/dL, Normal 150-199 mg/dL, Borderline high 200-499 mg/dL, High >499 mg/dL, Very high LAB HDLNF >39 mg/dL HDL Cholesterol, NF 68 Result Comment: 40-59 mg/dL, Acceptable >59 mg/dL, High: Negative risk factor for coronary heart disease <40 mg/dL, Low: Positive risk factor for coronary heart disease LAB LDLNF <100 mg/dL LDL Cholesterol, High NF 105 Result Comment: <100 mg/dL, Optimal 100-129 mg/dL, Near optimal/above optimal 130-159 mg/dL, Borderline high 160-189 mg/dL, High >189 mg/dL, Very high Secondary prevention optimal LDL Cholesterol levels are recommended to be < 70 mg/dL LAB NOHDLN <130 mg/dL High Non HDL Chol, 135 NF Result Comment: <130 mg/dL, Optimal 130-159 mg/dL, Near optimal/above optimal 160-189 mg/dL, Borderline high 190-219 mg/dL, High >219 mg/dL, Very high Secondary prevention optimal non HDL Cholesterol levels are recommended to be < 100 mg/dL LAB VLDLNF <30 mg/dL VLDL Cholesterol, High NF 30 LAB TCHDLN <5.10 mg/dL T Chol/HDL Ratio NF 2.99 LAB LDLHDN <2.54 mg/dL LDL/HDL Ratio, NF 1.54 Result Comment: Reference: 1. National Cholesterol Education Program ATP III Guideline At-A-Glance Quick Desk Reference: National Heart, Lung, and Blood Cut Off. National Institutes of Health. 2001: NIH Publication No. 01-3305. 2. An International Atherosclerosis Society position paper: global recommendations for the management of dyslipidemia: executive summary, Atherosclerosis. 2014: 232(2):410-413. Performed By: #### CBC, IRON, BMP, LIPNF, HBA1C #### [facility] [address] [place], [place] [address] HEMOGLOBIN A1C Collected: 07/26/2018 Status: F Source: [place] 11:19 AM [facility] REPOSITORY TYPE CODE TESTS RESULT OUT OF REFERENCE UNITS RANGE LAB HGBA1C 4.3-5.6 % High Hemoglobin A1c 6.5 LAB HBA0 mg/dL Est. Average Glucose 140 Result Comment: eAG: (Estimated average glucose) is a calculated value from HgbA1c and is access service representative of the average blood glucose level in the last 2-3 month period. Performed By: #### CBC, IRON, BMP, LIPNF, HBA1C #### [facility] [address] [place], [place] [address] ALBUMIN/CREAT RATIO Collected: 07/26/2018 Status: F Source: [place] 11:19 AM [facility] REPOSITORY TYPE CODE TESTS RESULT OUT OF REFERENCE UNITS RANGE LAB UCRR 20-300 mg/dL 12.6 Low Creatinine,Ur ine,Ran LAB UALBR 0.0-23.0 mg/L <12.0 Albumin Urine Random LAB UALBCR 0-30 mg/g Not Albumin/Creat calculated Ratio Performed By: #### UACR #### [place] [address] [place], [place] [address] PROGRESS Observed: 07/26/2018 Status: COMPLETED Source: [place] 10:21 AM [facility] REPOSITORY HNO ID: [id number] Author: Aaron Tidwell Service: (none) Author Type: Physician Type: Progress Notes Filed: 07/26/2018 11:04 AM Note Text: This note was created using [email or web address]. Subjective Di Zapata is a 72 year old female. 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 This was now stopped as she was placed back on predisone. Prednisone was helped her calcium and vitamin D and there was concern for sarcoidosis. Chronic leg ulcers were ongoing and improving. She had GI bleed in November but colonoscopy was being deferred by Dr. Alvarado due to poor status. She sees multiple specialists. ACTIVE PROBLEM LIST Hypertension Goal Bp (Blood Pressure) < 150/90 Rheumatoid Arthritis of Multiple Sites With Negative Rheumatoid Factor (Hcc) Atrial Fibrillation (Hcc) Type 2 Diabetes Mellitus With Stage 3 Chronic Kidney Disease (Hcc) Pulmonary Nodule Systolic Congestive Heart Failure (Hcc) Ui (Urinary Incontinence) S/P Maze Operation for Atrial Fibrillation Ckd (Chronic Kidney Disease) Stage 3, Gfr 30-59 Ml/Min (Hcc) Hypercalcemia 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) Venous Stasis Ulcers of Both Lower Extremities (Hcc) Depressive Disorder Lumbar Radiculopathy, Chronic Gait Abnormality Anemia Due to Blood Loss Calcinosis Current Outpatient Prescriptions: FLUoxetine (PROZAC) 20 mg capsule Take 1 capsule by mouth once daily. iron polysaccharide complex (FERREX 150) 150 mg iron capsule Take 1 capsule by mouth once daily. predniSONE (DELTASONE) 10 mg tablet 10 mg MWF and 5 mg on all other 4 days of the week. metoprolol tartrate, short acting, (LOPRESSOR) 25 mg tablet Take 1 tablet by mouth twice daily. COMPOUNDED PRESCRIPTION Apply 1 application to affected area. Collagen Hydrogen furosemide (LASIX) 20 mg tablet Take 1 tablet by mouth every other day. potassium chloride (KLOR-CON 10) 10 mEq tablet Take 1 tablet by mouth daily with breakfast. 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 Per Dr. Carbajal No current facility-administered medications for this visit. Review of Systems Constitutional: Negative. Respiratory: Negative. Cardiovascular: Negative. Gastrointestinal: Negative. Genitourinary: Negative. Musculoskeletal: Positive for arthralgias and back pain. Skin: Positive for wound. Neurological: Positive for numbness. Psychiatric/Behavioral: Positive for dysphoric mood and sleep disturbance. Objective BP 122/74 (BP Site: Left Arm, BP Position: Sitting, BP Cuff Size: Large Adult) Pulse 84 Temp 36 ?C (96.8 ?F) (Left Tympanic) Resp 18 Wt 78.7 kg (173 lb 9.6 oz) BMI 30.27 kg/m? Physical Exam Constitutional: No distress. Eyes: Conjunctivae are normal. No scleral icterus. Neck: No JVD present. Cardiovascular: Normal rate, S1 normal and S2 normal. An irregularly irregular rhythm present. Murmur heard. Pulmonary/Chest: Effort normal. She has wheezes. Rare wheeze. Abdominal: Soft. There is no tenderness. Musculoskeletal: She exhibits no edema. Skin: Leg dressings clean. Feet: Shoes and socks removed, trace DP distal pulses and not sensitive to monofilament in some toes. Overriding toes. Hammertoes. Bunion right. Assessment and Plan 1. Anemia due to blood loss - ICD9: 280.0, ICD10: D50.0 (primary diagnosis) Refilled. - POLYSACCHARIDE IRON COMPLEX 150 MG IRON CAPSULE - CBC - IRON + TIBC 2. Depressive disorder - ICD9: 311, ICD10: F32.9 Controlled. - FLUOXETINE 20 MG CAPSULE 3. Type 2 diabetes mellitus with stage 3 chronic kidney disease, without long-term current use of insulin (HCC) - ICD9: 250.40, 585.3, ICD10: E11.22, N18.3 Controlled, diet controlled. - HGB A1C - ALBUMIN/CREAT RATIO RND UR - LIPID PANEL, NONFASTING - BASIC METABOLIC PNL 4. Chronic atrial fibrillation (HCC) - ICD9: 427.31, ICD10: I48.2 Not anticoagulated. 5. Hypercalcemia - ICD9: 275.42, ICD10: E83.52 Per nephrology. - PREDNISONE 10 MG TABLET 6. Lumbar radiculopathy, chronic - ICD9: 724.4, ICD10: M54.16 Chronic low back pain Per pain management. Aaron Tidwell MD CNOV Observed: 07/26/2018 Status: COMPLETED Source: [place] 9:40 AM [facility] REPOSITORY Office Visit (INTMWS) DI ZAPATA ([id number]) 1945 F Date Time Provider Department 07/26/18 9:40 AM AARON TIDWELL During your visit today, we recorded the following information about you: Temperature Pulse Respiration Blood pressure 96.8 degrees 84/minute 18/minute 122/74 Weight 78.7 kg Aaron Tidwell MD 07/26/2018 11:04 AM Signed This note was created using [employer]. Subjective Di Zapata is a 72 year old female. 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 This was now stopped as she was placed back on predisone. Prednisone was helped her calcium and vitamin D and there was concern for sarcoidosis. Chronic leg ulcers were ongoing and improving. She had GI bleed in November but colonoscopy was being deferred by Dr. Alvarado due to poor status. She sees multiple specialists. ACTIVE PROBLEM LIST Hypertension Goal Bp (Blood Pressure) < 150/90 Rheumatoid Arthritis of Multiple Sites With Negative Rheumatoid Factor (Hcc) Atrial Fibrillation (Hcc) Type 2 Diabetes Mellitus With Stage 3 Chronic Kidney Disease (Hcc) Pulmonary Nodule Systolic Congestive Heart Failure (Hcc) Ui (Urinary Incontinence) S/P Maze Operation for Atrial Fibrillation Ckd (Chronic Kidney Disease) Stage 3, Gfr 30-59 Ml/Min (Hcc) Hypercalcemia 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) Venous Stasis Ulcers of Both Lower Extremities (Hcc) Depressive Disorder Lumbar Radiculopathy, Chronic Gait Abnormality Anemia Due to Blood Loss Calcinosis Current Outpatient Prescriptions: FLUoxetine (PROZAC) 20 mg capsule Take 1 capsule by mouth once daily. iron polysaccharide complex (FERREX 150) 150 mg iron capsule Take 1 capsule by mouth once daily. predniSONE (DELTASONE) 10 mg tablet 10 mg MWF and 5 mg on all other 4 days of the week. metoprolol tartrate, short acting, (LOPRESSOR) 25 mg tablet Take 1 tablet by mouth twice daily. COMPOUNDED PRESCRIPTION Apply 1 application to affected area. Collagen Hydrogen furosemide (LASIX) 20 mg tablet Take 1 tablet by mouth every other day. potassium chloride (KLOR-CON 10) 10 mEq tablet Take 1 tablet by mouth daily with breakfast. 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 Per Dr. Carbajal No current facility-administered medications for this visit. Review of Systems Constitutional: Negative. Respiratory: Negative. Cardiovascular: Negative. Gastrointestinal: Negative. Genitourinary: Negative. Musculoskeletal: Positive for arthralgias and back pain. Skin: Positive for wound. Neurological: Positive for numbness. Psychiatric/Behavioral: Positive for dysphoric mood and sleep disturbance. Objective BP 122/74 (BP Site: Left Arm, BP Position: Sitting, BP Cuff Size: Large Adult) Pulse 84 Temp 36 ?C (96.8 ?F) (Left Tympanic) Resp 18 Wt 78.7 kg (173 lb 9.6 oz) BMI 30.27 kg/m? Physical Exam Constitutional: No distress. Eyes: Conjunctivae are normal. No scleral icterus. Neck: No JVD present. Cardiovascular: Normal rate, S1 normal and S2 normal. An irregularly irregular rhythm present. Murmur heard. Pulmonary/Chest: Effort normal. She has wheezes. Rare wheeze. Abdominal: Soft. There is no tenderness. Musculoskeletal: She exhibits no edema. Skin: Leg dressings clean. Feet: Shoes and socks removed, trace DP distal pulses and not sensitive to monofilament in some toes. Overriding toes. Hammertoes. Bunion right. Assessment and Plan 1. Anemia due to blood loss - ICD9: 280.0, ICD10: D50.0 (primary diagnosis) Refilled. - POLYSACCHARIDE IRON COMPLEX 150 MG IRON CAPSULE - CBC - IRON + TIBC 2. Depressive disorder - ICD9: 311, ICD10: F32.9 Controlled. - FLUOXETINE 20 MG CAPSULE 3. Type 2 diabetes mellitus with stage 3 chronic kidney disease, without long-term current use of insulin (HCC) - ICD9: 250.40, 585.3, ICD10: E11.22, N18.3 Controlled, diet controlled. - HGB A1C - ALBUMIN/CREAT RATIO RND UR - LIPID PANEL, NONFASTING - BASIC METABOLIC PNL 4. Chronic atrial fibrillation (HCC) - ICD9: 427.31, ICD10: I48.2 Not anticoagulated. 5. Hypercalcemia - ICD9: 275.42, ICD10: E83.52 Per nephrology. - PREDNISONE 10 MG TABLET 6. Lumbar radiculopathy, chronic - ICD9: 724.4, ICD10: M54.16 Chronic low back pain Per pain management. Aaron Tidwell MD Referring Provider: AARON TIDWELL [[id number]] Allergies As of Date: 07/26/2018 Noted Allergy Reaction BACTRIM (SULFAMETHOXAZOLE-TRIMETH*06/29/2007 2 - Rash CARDURA (DOXAZOSIN) 04/24/2013 16 - Unknown CEFTRIAXONE 08/10/2017 14 - Other: See Comments Comments: Veins turned red DEMEROL (MEPERIDINE (PF)) 04/18/2006 DOXYCYCLINE 04/18/2006 NORVASC (AMLODIPINE BESYLATE) 04/06/2011 7 - Swelling SULFA (SULFONAMIDE ANTIBIOTICS) 07/04/2005 2 - Rash VASOTEC (ENALAPRIL MALEATE) 04/18/2006 3 - Cough VISTARIL (HYDROXYZINE HCL) 04/18/2006 Date Reviewed: 07/26/2018 Reviewed by: Desirae Abbasi LPN - Fully Assessed Reason for Visit: Recheck [92] Cmt: 5 month follow up Primary Visit Diagnosis:Anemia due to blood loss [D50.0] Other Visit Diagnoses:Depressive disorder [F32.9] Type 2 diabetes mellitus with stage 3 chronic kidney disease, without long-term current use of insulin (HCC) [E11.22, N18.3] Chronic atrial fibrillation (HCC) [I48.2] Hypercalcemia [E83.52] Lumbar radiculopathy, chronic [M54.16] Order(s):FLUoxetine (PROZAC) 20 mg capsuleTake 1 capsule by mouth once daily.Disp: 30 capsuleRfl: 5 iron polysaccharide complex (FERREX 150) 150 mg iron capsuleTake 1 capsule by mouth once daily.Disp: 30 capsuleRfl: 5 CBC [SQCBC] Order #: [id number] FUTURE IRON + TIBC [SQIRON] Order #: [id number] FUTURE HGB A1C [DGUNH0N] Order #: [id number] FUTURE ALBUMIN/CREAT RATIO RND UR [SQUACR] Order #: [id number] FUTURE LIPID PANEL, NONFASTING [SQLIPNF] Order #: [id number] FUTURE BASIC METABOLIC PNL [SQBMP] Order #: [id number] FUTURE Prescriptions as of 07/26/2018 Sig: FLUOXETINE 20 MG CAPSULE Take 1 capsule by mouth once * POLYSACCHARIDE IRON COMPLEX 1* Take 1 capsule by mouth once * PREDNISONE 10 MG TABLET 10 mg MWF and 5 mg on all oth* METOPROLOL TARTRATE 25 MG TAB* Take 1 tablet by mouth twice * COMPOUNDED PRESCRIPTION Apply 1 application to affect* FUROSEMIDE 20 MG TABLET Take 1 tablet by mouth every * POTASSIUM CHLORIDE ER 10 MEQ * Take 1 tablet by mouth daily * COMPOUNDED PRESCRIPTION Thigh High Compression Stocki* OXYCODONE-ACETAMINOPHEN 5 MG-* Take 1 tablet by mouth every * GABAPENTIN 100 MG CAPSULE Take 100 mg by mouth four carlos* Problem List As Of Date 07/26/2018 Noted Resolved Hypertension goal BP (blood pressure) < 150/90 *INVALID FOR* More... Rheumatoid arthritis of multiple sites with neg*INVALID FOR* More... Ankylosing spondylitis (HCC) [M45.9] INVALID FOR*07/26/2018 More... Other diseases of lung, not elsewhere classifie*INVALID FOR*02/11/2015 More... SLEEP APNEA NOS [G47.30] INVALID FOR*04/18/2006 Obesity, unspecified [E66.9] INVALID FOR*02/11/2015 Impaired fasting glucose [R73.01] INVALID FOR*02/27/2012 More... 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] INVALID FOR*02/11/2015 Candidal intertrigo [B37.2] INVALID FOR*02/11/2015 Intertrigo [L30.4] INVALID FOR*02/11/2015 Eczema Dermatitis and Other Eczema, due to Unsp*INVALID FOR*09/28/2016 Diabetes mellitus (HCC) [E11.9] INVALID FOR*01/05/2015 Venous insufficiency [I87.2] INVALID FOR*07/15/2015 Edema [R60.9] INVALID FOR*02/11/2015 Pain in joint, shoulder region [M25.519] INVALID FOR*02/11/2015 Disorders of bursae and tendons in shoulder reg*INVALID FOR*09/28/2016 Diabetes mellitus type 2, controlled [E11.9] INVALID FOR*02/11/2015 DM (diabetes mellitus), type 2 (HCC) [E11.9] INVALID FOR*07/15/2015 Venous insufficiency (chronic) (peripheral) [I8*INVALID FOR*02/20/2018 More... Atrial fibrillation (HCC) [I48.91] INVALID FOR* More... Type 2 diabetes mellitus with diabetic chronic *INVALID FOR*01/06/2016 Lymphedema, not elsewhere classified [I89.0] INVALID FOR*05/17/2017 Type 2 diabetes mellitus with stage 3 chronic k*INVALID FOR* More... Pulmonary nodule [R91.1] INVALID FOR* More... Systolic congestive heart failure (HCC) [I50.20]INVALID FOR* More... Hydronephrosis [N13.30] INVALID FOR*07/26/2018 UI (urinary incontinence) [R32] INVALID FOR* Patent ductus arteriosus [Q25.0] INVALID FOR*07/26/2018 More... S/P Maze operation for atrial fibrillation [Z98*INVALID FOR* More... CKD (chronic kidney disease) stage 3, GFR 30-59*INVALID FOR* More... Anemia, unspecified [D64.9] INVALID FOR*07/26/2018 Hypoxemia requiring supplemental oxygen [R09.02*INVALID FOR*10/19/2017 Hypercalcemia [E83.52] INVALID FOR* Hypervitaminosis D (rule out granulomatous dise*INVALID FOR* Venous stasis ulcers of both lower extremities *INVALID FOR* Depressive disorder [F32.9] INVALID FOR* Lumbar radiculopathy, chronic [M54.16] INVALID FOR* More... Gait abnormality [R26.9] INVALID FOR* Pyoderma gangrenosum [L88] INVALID FOR*02/21/2018 Anemia due to blood loss [D50.0] INVALID FOR* Calcinosis [E83.59] INVALID FOR* Prescriptions ordered this encounter Disp Refills Start End FLUOXETINE 20 MG CAPSULE 30 c* 5 07/26/2018 Route: ORAL Sig: Take 1 capsule by mouth once daily. POLYSACCHARIDE IRON COMPLEX 150 MG I* 30 c* 5 07/26/2018 Route: ORAL Sig: Take 1 capsule by mouth once daily. Medications Discontinued During This Encounter pantoprazole DR (PROTONIX) 40 mg tab* 60 t* 0 02/22/2018 07/26/2018 Route: ORAL Sig: Take 1 tablet by mouth twice daily. Take on empty stomach, 1/2 hr before meal. Patient not taking: Reported on 07/26/2018 Disc: Reason for discontinue is not on file. FLUoxetine (PROZAC) 20 mg capsule 30 c* 5 02/20/2018 07/26/2018 Route: ORAL Sig: Take 1 capsule by mouth once daily. Disc: Reason for discontinue is not on file. iron polysaccharide complex (FERREX * 30 c* 5 02/21/2018 07/26/2018 Route: ORAL Sig: Take 1 capsule by mouth once daily. Disc: Reason for discontinue is not on file. predniSONE (DELTASONE) 10 mg tablet 01/09/2018 07/26/2018 Class: Med Update Route: ORAL Sig: Take 1 tablet by mouth once daily. Disc: Reason for discontinue is not on file. Cosign accepted by MILLICENT BARRIOS GRADUATE ADVISOR[[id number]] on 01/09/2018 9:18 AM Disposition: Return in about 6 months (around 01/23/2019). Follow-up and Disposition History Recorded Encounter Status:Closed by AARON TIDWELL MD on 07/26/18 PTHIN Collected: 07/11/2018 Status: F Source: [place] 9:33 AM [facility] REPOSITORY TYPE CODE TESTS RESULT OUT OF RANGE REFERENCE UNITS LAB L509.1000 18.4-80.1 pg/mL Normal PTHIN 58.8 Performed By: #### L509.1000 #### [facility] [address] [place], [place], [address] VITAMIN D 1,25-DIHYDROXY Collected: 07/09/2018 Status: F Source: [place] 10:00 AM [facility] REPOSITORY TYPE CODE TESTS RESULT OUT OF RANGE REFERENCE UNITS LAB L3300.0960 19.9-79.3 pg/mL Normal VITD 1,25 21.9 41668 Result Comment: Performed at: - [facility] [id number] Vacation Sales Advisor: Jimmy Patino MD, Phone: [phone] Performed By: #### L3300.0960 #### [facility] (refer to report for specific site) refer to report for address and phone number RENAL PROFILE Collected: 07/09/2018 Status: F Source: [place] 9:58 AM [facility] REPOSITORY TYPE CODE TESTS RESULT OUT OF RANGE REFERENCE UNITS LAB L501.0100 74-106 mg/dL High GLU 137 Result Comment: Fasting Glucose result greater than or equal to 126 mg/dL suggests DIABETES MELLITUS per A.D.A. criteria. Please note revised GLUCOSE reference range effective 2017. LAB L501.1000 7-18 mg/dL High BUN 40 LAB L501.1100 0.55-1.02 mg/dL High CREAT,SERUM 1.10 Result Comment: The validity of the calculated GFR AND GFRAA in patients over 70 years has not been determined. Clinical correlation is essential. LAB L501.1110 >60 mL/min Low EST GFR 52 Result Comment: Non- GFR Calc LAB L501.1115 >60 mL/min Normal EST GFR - AA 63 Result Comment: GFR Calc LAB L501.1300 10-20 RATIO High BUN/CRE 36.4 LAB L501.1800 3.2-5.0 g/dL Normal ALB 3.4 LAB L501.2200 8.5-10.1 mg/dL CA Normal 9.0 LAB L501.2300 2.5-4.9 mg/dL Normal PHOS 3.0 LAB L501.5300 136-145 mmol/L NA Normal 138 LAB L501.5600 3.5-5.1 mmol/L K Normal 4.1 LAB L501.5900 98-107 mmol/L CL Normal 101 LAB L501.6100 21.0-32.0 mmol/L Normal CO2 31.0 Performed By: #### L500.3600 #### [facility] [address] [place], [address] OPERATIVE REPORT Observed: 07/03/2018 Status: F Source: [place] 10:44 PM [facility] REPOSITORY [facility] Medical Records Department [address] [place] [address] Operative Report 07/03/18 1628 MR#: [id number] Acct: [id number] Name: DI ZAPATA Rep #: [id number] : 1945 72 From: Nora Spain DPM PCP: Aaron Tidwell MD Status: DEP [facility] Y Location: [facility] Problem List (1) Calciphylaxis Status: Chronic (2) Ulcer of left lower extremity with fat layer exposed Status: Chronic (3) Ulcer of right lower extremity with fat layer exposed Status: Chronic Report of Operation Date of Procedure: 07/03/18 Pre-Operative Diagnosis: right leg ulcer chronic, fat layer exposed. left leg ulcer chronic, fat layer exposed. calciphylaxis Post-Operative Diagnosis: right leg ulcer chronic, fat layer exposed. left leg ulcer chronic, fat layer exposed. calciphylaxis Surgery/Procedure Performed:: versajet excisional subcutaneous debridement bilateral legs. application of advanced wound care product, amniofill bilateral legs Description of Surgical Findings:: hemostasis controlled, no tourniquet utilized materials: amniofill (500 mg) Complications: None sql server dba developer: none Type of Anesthesia:: Local MAC - Preop: 18 cc of one-to-one mix of 1% lidocaine plain and 0.5% Marcaine plain administered in subdermal local infiltration manner bilateral legs Specimen's removed: none Estimated Blood Loss (mL): < 50 mL Description of Procedure: Indications: This 72-year-old female with significant past medical history of atrial fibrillation, calciphylaxis, chronic diastolic heart failure, obstructive sleep apnea, depression, hypertension, myalgias, history of anemia and history of kidney disease has chronic bilateral lower extremity ulcers secondary to calciphylaxis flareup. She is being treated by heart surgeon, Dr. Almonte for long-term management of this condition with IV sodium thiosulfate and elimination of calcium products from her diet. She underwent a standard wound care plan including serial debridements, offloading, diet improvement, and advanced wound care product application including theraskin and Apligraf in the outpatient setting. She has ongoing delayed healing and does not have any local signs of infection at this time. Her pulses remain palpable. She was cleared by her medical doctor and I reviewed her history and physical exam. Her preoperative diagnostic data was also reviewed and she is stable at this time. The preoperative indications, planned procedure, possible benefits, risks, complications, and anticipated healing time management were discussed in detail with patient. She understands complications include but are not limited to the following: Infection, continued delayed or nonhealing, scarring, pain, swelling, need for additional surgery, loss of limb, function, or light, allergic reaction, blood clot. No guarantees were made. Informed surgical consent and surgical limbs were signed. I answered all her questions. This is a planned stage procedure. Procedure in detail: The patient was transported to the operating room via cart and placed on the operating table in the supine position. Final verification was then performed via the timeout procedure including patient, planned procedure, and limb designation. MAC anesthesia was initiated by the anesthesia team. Local anesthesia was administered by the podiatry team as noted above. Lateral lower extremities were prepped and draped in the usual aseptic manner and surgery began as the following: Versa jet and setting 5 was used to perform a subcutaneous excisional debridement to all ulcer sites to remove nonviable fibrous tissue, devitalized subcutaneous tissue, biofilm, slough. Pressure was applied to maintain hemostasis and she appeared to have tolerated this well. There was no necrosis infection or uncontrolled bleeding noted. The ulcer ulcer bed is granular with some interspersed fibrous tissue. The wound beds with stellate shaped on the right limb. The ulcer debridement measurements were as the following on the right lower limb: Pre-debridement posterior cluster 12.5 x 6.5 x 0.1 cm (post debridement 12.7 x 6.6 x 0.1 cm), lateral cluster 6.2 x 4.2 x 0.1 cm (post debridement 6.3 x 4.3 x 0.1 cm), medial 7.3 x 5.5 x 0.1 cm (post debridement 7.4 x 5.6 x 0.1 cm). The ulcer measurements were as the following on the left lower limb: Posterior aspect 2.9 x 2.8 x 0.1 cm (post debridement 3.0 x 2.9 x 0.1 cm). The recently debrided ulcer sites were next copiously irrigated with normal saline. Next advanced wound healing product, amniofill, was applied copiously to cover all debridement sites; 500 mg was utilized. This was secured in place with Adaptic and Steri-Strips and further moistened with a saline gauze. A secondary dressing was additionally applied to this well adhered product site including gauze, abdominal pads, Kerlix, and Adrián wraps. After procedure: The patient tolerated the procedure and anesthesia well. She was transferred to the PACU with vital signs stable and intact to bilateral lower extremities. Her capillary refill time remains brisk to all digits of bilateral foot and there was no pulsatile bleeding noted prior to dressing application. She was advised to ice and elevate for pain and inflammation management. She was advised to keep her dressings clean, dry, and intact until she comes to the wound healing center next Monday. Postoperative orders were entered electronically. She understands this is likely a staged procedure and is part of a comprehensive wound healing plan. She was advised to continue to keep pressure directly off the sites and to continue with her calciphylaxis medical management with her heart surgeon. Nora Spain DPM, [facility] 07/03/18 2244 <Electronically signed by Nora Spain DPM> Date Nora Spain DPM CC: Nora Spain DPM; Aaron Tidwell MD Signed DISCHARGE INSTRUCTION Observed: 07/03/2018 Status: F Source: [place] 2:14 PM [facility] REPOSITORY [facility] Medical Records Department [address] [place] [address] Instructions for Home/Discharge Instructions 07/03/18 1412 MR#: [id number] Acct: [id number] Name: DI ZAPATA Rep #: [id number] : 1945 72 From: Nora Spain DPM PCP: Aaron Tidwell MD Status: REG [facility] Discharge Diet: No Restrictions Discharge Activity: May not drive while taking narcotic pain medications. Weight Bearing Status: Weight bearing as tolerated Keep extremity elevated above heart level: Operative Extremity, Left Leg, Right Leg Call your doctor if your incision/area has: Continuous Slow Oozing, Sudden Increased Bleeding, Increased Pain/ Swelling, Increased Redness, Foul Smelling Discharge, Swelling at the incision site Call your doctor if you observe: Fever of 101 or Higher, Calf discomfort, Uncontrolled pain Cleanse incision/area with: Keep Dressing Clean AND Dry Allergies/Adverse Reactions: Allergies amlodipine besylate [From Norvasc] Allergy (Verified 06/29/18 08:57) Unknown ceftriaxone Allergy (Verified 06/29/18 08:57) Rash doxazosin [From Cardura] Allergy (Verified 06/29/18 08:57) Unknown doxazosin mesylate [From Cardura] Allergy (Verified 06/29/18 08:57) Other VEINS TURNED RED doxycycline Allergy (Verified 06/29/18 08:57) Unknown Pt doesn't remember enalapril maleate [From Vasotec] Allergy (Verified 06/29/18 08:57) Rash enalaprilat dihydrate [From Vasotec] Allergy (Verified 06/29/18 08:57) Rash hydroxyzine HCl [From Vistaril] Allergy (Verified 06/29/18 08:57) Rash hydroxyzine pamoate [From Vistaril] Allergy (Verified 06/29/18 08:57) Rash meperidine HCl [From Demerol] Allergy (Verified 06/29/18 08:57) Rash Sulfa (Sulfonamide Antibiotics) Allergy (Verified 06/29/18 08:57) Hives sulfamethoxazole [From Bactrim] Allergy (Verified 06/29/18 08:57) Hives trimethoprim [From Bactrim] Allergy (Verified 06/29/18 08:57) Hives Medications to take at Discharge Gabapentin [Neurontin] 100 mg PO TID 09/29/17 Fluoxetine [Prozac] 20 mg PO DAILY 09/30/17 Metoprolol Tartrate [Lopressor (beta alok)] 25 mg PO BID 12/12/17 Potassium Chloride [K-Tab ER] 10 meq PO QDAY 12/12/17 Iron Polysaccharide Complex [Ferrex 150] 150 mg PO DAILYCM 05/25/18 Prednisone 10 mg PO DAILY 05/25/18 Oxycodone HCl/Acetaminophen [Percocet 5-325] 1 tab PO Q8H PRN PRN 06/28/18 furosemide 20 mg tablet 20 mg PO DAILY #30 tab 07/02/18 Primary Care Physician: Aaron Tidwell MD [Primary Care Provider] - Test Results: Test results from this visit will be discussed in further detail at your follow-up appointment, if applicable. Please Follow Up With: Nora Spain DPM When: next mon at [facility]. call sooner if concerns - [phone] Proposed Discharge Date: 07/03/18 07/03/18 1414 <Electronically signed by Nora Spain DPM> Date Nora Spain DPM CC: Aaron Tidwell MD BEDSIDE GLUCOSE Collected: 07/03/2018 Status: F Source: [place] 12:05 PM [facility] REPOSITORY TYPE CODE TESTS RESULT OUT OF REFERENCE UNITS RANGE LAB L501.080 70-110 mg/dL High BEDSIDE GLU 112 Result Comment: MANAGEMENT OF PATIENT CARE PER NURSING PROTOCOL Performed By: #### L501.080 #### [facility] [place] [address] MIYA Observed: 06/29/2018 Status: COMPLETED Source: [place] 12:00 AM [facility] REPOSITORY Telephone (INTMWS) DI ZAPATA ([id number]) 1945 F Date Time Provider Department 06/29/18 MILLICENT BARRIOS) INTHoneyWS During your visit today, we recorded the following information about you: Katie Burgos LPN 06/29/2018 10:11 AM Signed [facility] with [facility] calling for pre op clearance done on 06-27-18 by Millicent. She needs the office note and clearance paper she sent over when apt was booked. Lab work was done at [facility] on 06-28-18. PH: [phone], FAX: [phone]. They are in need of this as soon as possible. Surgery is Monday07-03-18. Katie Barrios APRN.CNP 06/29/2018 10:56 AM Signed I am waiting for the results of the CBC done at [facility] in order to clear her. We just checked this morning and they were not resulted yet. We will send as soon as possible KARISSA Corbin Cma 06/29/2018 11:45 AM Signed [facility] to Millicent Barrios CNP to review. Veronique Powell Cma 06/29/2018 12:52 PM Signed Faxed Pre Op form to fax number provided. Veronique Powell Casino Cage Cashier 06/29/2018 12:58 PM Signed Refaxed all info including pre op form from Jace and Millicent Barrios CNP progress note x 2. Jace states that she didn't receive the information 5 minutes ago when originally faxed for the 1st time. Veronique Powell Cma Allergies As of Date: 06/29/2018 Noted Allergy Reaction BACTRIM (SULFAMETHOXAZOLE-TRIMETH*06/29/2007 2 - Rash CARDURA (DOXAZOSIN) 04/24/2013 16 - Unknown CEFTRIAXONE 08/10/2017 14 - Other: See Comments Comments: Veins turned red DEMEROL (MEPERIDINE (PF)) 04/18/2006 DOXYCYCLINE 04/18/2006 NORVASC (AMLODIPINE BESYLATE) 04/06/2011 7 - Swelling SULFA (SULFONAMIDE ANTIBIOTICS) 07/04/2005 2 - Rash VASOTEC (ENALAPRIL MALEATE) 04/18/2006 3 - Cough VISTARIL (HYDROXYZINE HCL) 04/18/2006 Date Reviewed: 06/27/2018 Reviewed by: Veronique Powell Cma - Fully Assessed Reason for Visit: pre op clearance [Other] Prescriptions as of 06/29/2018 Sig: OXYCODONE-ACETAMINOPHEN 5 MG-* Take 1 tablet by mouth every * PANTOPRAZOLE 40 MG TABLET,DEL* Take 1 tablet by mouth twice * POLYSACCHARIDE IRON COMPLEX 1* Take 1 capsule by mouth once * COMPOUNDED PRESCRIPTION Apply 1 application to affect* FLUOXETINE 20 MG CAPSULE Take 1 capsule by mouth once * FUROSEMIDE 20 MG TABLET Take 1 tablet by mouth every * PREDNISONE 10 MG TABLET Take 1 tablet by mouth once d* METOPROLOL TARTRATE 25 MG TAB* Take 1 tablet by mouth twice * POTASSIUM CHLORIDE ER 10 MEQ * Take 1 tablet by mouth daily * GABAPENTIN 100 MG CAPSULE Take 100 mg by mouth four carlos* COMPOUNDED PRESCRIPTION Thigh High Compression Stocki* Problem List As Of Date 06/29/2018 Noted Resolved Hypertension goal BP (blood pressure) < 150/90 *INVALID FOR* More... Rheumatoid arthritis of multiple sites with neg*INVALID FOR* More... 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 Other diseases of lung, not elsewhere classifie*INVALID FOR*02/11/2015 More... SLEEP APNEA NOS [G47.30] INVALID FOR*04/18/2006 Obesity, unspecified [E66.9] INVALID FOR*02/11/2015 Impaired fasting glucose [R73.01] INVALID FOR*02/27/2012 More... 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] INVALID FOR*02/11/2015 Candidal intertrigo [B37.2] INVALID FOR*02/11/2015 Intertrigo [L30.4] INVALID FOR*02/11/2015 Eczema Dermatitis and Other Eczema, due to Unsp*INVALID FOR*09/28/2016 Diabetes mellitus (HCC) [E11.9] INVALID FOR*01/05/2015 Venous insufficiency [I87.2] INVALID FOR*07/15/2015 Edema [R60.9] INVALID FOR*02/11/2015 Pain in joint, shoulder region [M25.519] INVALID FOR*02/11/2015 Disorders of bursae and tendons in shoulder reg*INVALID FOR*09/28/2016 Diabetes mellitus type 2, controlled [E11.9] INVALID FOR*02/11/2015 DM (diabetes mellitus), type 2 (HCC) [E11.9] INVALID FOR*07/15/2015 Venous insufficiency (chronic) (peripheral) [I8*INVALID FOR*02/20/2018 More... Atrial fibrillation (HCC) [I48.91] INVALID FOR* More... Type 2 diabetes mellitus with diabetic chronic *INVALID FOR*01/06/2016 Lymphedema, not elsewhere classified [I89.0] INVALID FOR*05/17/2017 Type 2 diabetes mellitus with stage 3 chronic k*INVALID FOR* More... Pulmonary nodule [R91.1] INVALID FOR* More... Systolic congestive heart failure (HCC) [I50.20]INVALID FOR* More... Hydronephrosis [N13.30] INVALID FOR* UI (urinary incontinence) [R32] INVALID FOR* Patent ductus arteriosus [Q25.0] INVALID FOR* More... S/P Maze operation for atrial fibrillation [Z98*INVALID FOR* More... CKD (chronic kidney disease) stage 3, GFR 30-59*INVALID FOR* More... Anemia, unspecified [D64.9] INVALID FOR* Hypoxemia requiring supplemental oxygen [R09.02*INVALID FOR*10/19/2017 Hypercalcemia [E83.52] INVALID FOR* Hypervitaminosis D (rule out granulomatous dise*INVALID FOR* Venous stasis ulcers of both lower extremities *INVALID FOR* Depressive disorder [F32.9] INVALID FOR* Lumbar radiculopathy, chronic [M54.16] INVALID FOR* Gait abnormality [R26.9] INVALID FOR* Pyoderma gangrenosum [L88] INVALID FOR*02/21/2018 Anemia due to blood loss [D50.0] INVALID FOR* Calcinosis [E83.59] INVALID FOR* Encounter Status:Closed by VERONIQUE POWELL CMA on 06/29/18 CBC W/DIFF, AUTOMATED Collected: 06/28/2018 Status: F Source: [place] 9:31 AM [facility] REPOSITORY TYPE CODE TESTS RESULT OUT OF RANGE REFERENCE UNITS LAB L100.1000 4.4-11.0 K/mm3 Normal WBC 7.1 LAB L100.1200 4.2-5.4 M/mm3 Normal RBC 5.05 LAB L100.1300 12.0-15.0 g/dl Normal HGB 13.4 LAB L100.1400 37-47 % Normal HCT 42.3 LAB L100.1500 81-99 fL Normal MCV 83.8 LAB L100.1600 27.0-32.0 pg Low MCH 26.5 LAB L100.1700 32-36 g/gl Low MCHC 31.7 LAB L100.1810 11.6-14.6 % High RDW CV 20.9 LAB L100.1820 35.1-43.9 fl High RDW SD 64.3 LAB L100.1900 150-450 K/mm3 Normal PLT 164 LAB L100.2000 6.2-12.0 fl Normal MPV 9.4 LAB L100.2100 47-70 % Normal NEUT% 69.3 LAB L100.2200 19-41 % Normal LY% 20.8 LAB L100.2300 0-10 % Normal MONO% 9.0 LAB L100.2400 0-5 % Normal EO% 0.8 LAB L100.2500 0-1 % Normal BASO% 0.1 LAB L100.2550 0.0-0.9 % Normal IM GRAN % 0.000 Result Comment: IG% - Immature Granulocytes (promyelocytes, myelocytes and metamyelocytes) > 1% indicates that a LEFT SHIFT is Present. LAB L100.2620 2.0-7.7 X10 3/uL Absolute Neut Normal 4.9 LAB L100.2720 0.83-4.51 X10 3/ul Absolute Lymph Normal 1.47 LAB L100.5500 ADEQ PLT EST Normal ADEQUATE LAB L100.7300 ANISO Normal 1+ LAB L100.7600 HYPOCHROMASIA Normal RARE Performed By: #### L100.0100 #### [facility] [address] [place], [address] PROGRESS Observed: 06/27/2018 Status: COMPLETED Source: [place] 10:20 AM [facility] REPOSITORY HNO ID: [id number] Author: Millicent (Kristen) Older Service: (none) Author Type: Nurse Practitioner Type: Progress Notes Filed: 06/27/2018 10:54 AM Note Text: CC: Patient presents with: Pre-Op Exam ? ? BISHOP Zapata is a 72 year old female who presents today for pre-op evaluation. Surgical Procedure: debridement of bilateral leg ulcers with Versajet and application of advanced wound care product Aminofil Date of Procedure: 07/03/18 Surgeon: Nora Spain DPHoney Patient had same procedure on 06/01/18. Denies any complications during or after. Pain was well controlled. ? METS: Walk indoors, such as around the house (1.75 METs): YES Do light work around the house, such as dusting or washing dishes (2.70 METs): YES Take care of self; that is eating, dressing, bathing, using the toilet (2.75 METs): YES Walk a block or two on level ground (2.75 METs): YES Do moderate work around the house such as vacuuming, sweeping floors, or carrying in groceries (3.50 METs): YES Do yardwork, such as raking leaves, weeding,or pushing a power mower (4.50 METs): NO Climb a flight of stairs or walk up a hill (5.50 METs): YES Participate in moderate recreational activities, such as golf, bowling, dancing, doubles tennis, or throwing a baseball or football (6.00 METs): NO Participate in strenuous sport, such as swimming, singles tennis, football, basketball, or skiing (7.50 METs): NO Do heavy work around the house, such as scrubbing floors, lifting or moving heavy furniture (8.00 METs): NO Run a short distance (8.00 METs): NO Total: 18.95 Patient denies any chest pain or undue shortness of breath with the above physical activity. ? 1. Diabetes: History of type 2 DM. No Longer on medication to treat. Last HgbA1c 6.0. Checking blood sugars fasting daily, usually in the 90's to 110's. This morning was 133. 2. Hypertension requiring medication: Yes Does not check BP's generally. Patient denies any side effects of her medication(s) and is compliant with their regimen. 3. 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 Childers. Occassionally gets SOB like she has too much fluid in me. Will notify her caponizer at those times and he usually has her increase Lasix for a few days. No recent increase in Lasix, takes 20 mg daily. Chronic edema that has improved. No significant weight gain, no orthopnea, no PND 4. Current Smoker within 1 Year: No 5. History of COPD: Thinks she has been told she has COPD. History of childhood asthma. Denies SOB, cough, wheezing. Does not use inhalers including rescue inhaler 6. History of LYN: Yes. Has not been wearing BiPAP because the last time she wore it she had a nightmare and woke up twisted in the tubing. Afraid she will hurt self if this happens again. 7. Dialysis: No but has history of CKD. History of hypercalcemia. Currently getting IV infusions twice a week to lower her calcium. Managed by heart surgeon Dr. Almonte, next appointment on 07/18. Denies any complications. ? REVIEW OF SYSTEMS General: no fevers, no chills, no night sweats, no recurrent infections. Improvement in appetite and energy level. Neck: no lumps, no pain and no swelling Respiratory: See HPI Cardiovascular: no chest pain, no chest pressure, no palpitations and See HPI GI: Negative for abdominal discomfort, blood in stools or black stools, change in bowel habit, heart burn, nausea, vomiting : Negative for dysuria, frequency, hematuria and hesitancy. Chronic incontinence. Neurologic: no syncope, no seizures, no dizziness, no memory loss, no confusion, no involuntary movements, no tremor PAST MEDICAL HISTORY Diagnosis Date - Ankylosing spondylitis (HCC) - Calcinosis 02/21/2018 - Diabetes mellitus without mention of complication Diabetes mellitus - Disorders of bursae and tendons in shoulder region, unspecified 06/20/2013 - Diverticulosis of colon (without mention of hemorrhage) - Eczema Dermatitis and Other Eczema, due to Unspec 09/16/2009 - Esophagitis - Essential hypertension, benign - Hypoxemia requiring supplemental oxygen 05/17/2017 - Internal hemorrhoids without mention of complication - Other diseases of lung, not elsewhere classified - Other dyspnea and respiratory abnormality dyspnea - PMH - PAST MEDICAL HISTORY OF carpal tunnel right - Rheumatoid arthritis(714.0) - Stricture and stenosis of esophagus - Unspecified sleep apnea PAST SURGICAL HISTORY Procedure Laterality Date - COLONOSCOP W/ OR W/O [facility] SPEC 07/02/07 - EGD W/O OR W/BRUSH/WASH 02/09/01 EGD - ESOPH W/O [facility] SPEC BALLOON DIL 02/09/01 Esophageal dilatation - MAZE PROCEDURE 01/12/[address] [facility] - MAZE PROCEDURE 05/04/[address] [place] [address], [facility] - PAST SURGICAL HISTORY OF 1970 'patent ductus' - PAST SURGICAL HISTORY OF 1993 '[place]' Procedure - PAST SURGICAL HISTORY OF 1999 Left foot surgey - PAST SURGICAL HISTORY OF 2001 Lymph nodes (2) removed-Right Neck - PAST SURGICAL HISTORY OF 2003 mole removal - REMOVAL GALLBLADDER Cholecystectomy - VAG HYSTERCTMY W/EDNA REP VAG AANDP 1990 ovaries spared ALLERGIES Bactrim [Sulfamethoxazole-Trimethoprim]; Cardura [Doxazosin]; Ceftriaxone; Demerol [Meperidine (Pf)]; Doxycycline; Norvasc [Amlodipine Besylate]; Sulfa (Sulfonamide Antibiotics); Vasotec [Enalapril Maleate]; Vistaril [Hydroxyzine Hcl] MEDICATIONS pantoprazole DR (PROTONIX) 40 mg tablet Take 1 tablet by mouth twice daily. Take on empty stomach, 1/2 hr before meal. iron polysaccharide complex (FERREX 150) 150 mg iron capsule Take 1 capsule by mouth once daily. COMPOUNDED PRESCRIPTION Apply 1 application to affected area. Collagen Hydrogen FLUoxetine (PROZAC) 20 mg capsule Take 1 capsule by mouth once daily. furosemide (LASIX) 20 mg tablet Take 1 tablet by mouth every other day. predniSONE (DELTASONE) 10 mg tablet Take 1 tablet by mouth once daily. metoprolol tartrate, short acting, (LOPRESSOR) 25 mg tablet Take 1 tablet by mouth twice daily. potassium chloride (KLOR-CON 10) 10 mEq tablet Take 1 tablet by mouth daily with breakfast. gabapentin (NEURONTIN) 100 mg capsule Take 100 mg by mouth four times daily. Per Dr. Carbajal COMPOUNDED PRESCRIPTION Thigh High Compression Stockings 30- 40 mm DX: Lyphemdema- I89.0 morphine SR (MS CONTIN, ORAMORPH SR) 15 mg 12 hr tablet Take 1 tablet by mouth every 12 hours. FAMILY HISTORY Problem Relation Age of Onset - Arthritis Father - Diabetes Mother - Cancer Brother lymphoma - Cancer Maternal Uncle prostate Social History Substance Use Topics - Smoking status: Never Smoker - Smokeless tobacco: Never Used - Alcohol use No PHYSICAL EXAM BP 120/80 Pulse 82 Temp 36.5 ?C (97.7 ?F) (Temporal Artery) Resp 14 Wt 74.6 kg (164 lb 6.4 oz) SpO2 97% BMI 28.67 kg/m? General Appearance: well appearing, in no acute distress, alert Neck: Neck supple, No adenopathy Oropharynx: lips normal without lesions, tongue midline and normal, soft palate, uvula, and tonsils normal Lungs: Lungs clear to auscultation. No wheezing, rhonchi, rales Heart: RRR without murmur, gallop, or rubs. No ectopy Abdomen: soft, nondistended, nontender, no hepatosplenomegaly or masses Extremities: Unable to evaluate lower extremities due to wound wraps from knees to toes that cannot be removed. No upper extremity edema, skin discoloration, clubbing or cyanosis. Good capillary refill. Pulses: 2+. PICC in right upper arm intact, no redness or drainage. ASSESSMENT/PLAN: 1. Pre-operative evaluation Check: Check Complete Blood Count. METS: 18.95. No cardiac work-up indicated. Atrial Fibrillation / Flutter - Rate Controlled and Not on Anticoagulation CHF - LV systolic dysfunction - compensated. No recent acute exacerbations COPD - Mild and Condition is stable. Does not require inhalers. No history of life threatening or frequent exacerbations. DM- Diet controlled only. Last HgbA1c 6.0 ARNETT risk: Patient is scheduled for a low-risk procedure. HTN: BP well controlled with medications. Risk of 0.8 calculated using the NSQIP surgical risk calculator The patient is medically stable for surgery pending results of lab work-up. ? 2. Venous stasis ulcers of both lower extremities (HCC) - ICD9: 459.81, 707.10, ICD10: I83.019, I83.029, L97.919, L97.929 - OXYCODONE-ACETAMINOPHEN 5 MG-325 MG TABLET 3. Hypertension goal BP (blood pressure) < 150/90 - ICD9: 401.9, ICD10: I10 As above 4. Chronic atrial fibrillation (HCC) - ICD9: 427.31, ICD10: I48.2 As above 5. Type 2 diabetes mellitus with stage 3 chronic kidney disease, without long-term current use of insulin (HCC) - ICD9: 250.40, 585.3, ICD10: E11.22, N18.3 As above 6. Chronic systolic congestive heart failure (HCC) - ICD9: 428.22, 428.0, ICD10: I50.22 As above 7. Calcinosis - ICD9: 275.49, ICD10: E83.59 As above 8. Need for vaccination - ICD9: V05.9, ICD10: Z23 - INFLUENZA SEASONAL HIGH DOSE AGE 65+ Millicent Older, PROFESSOR OF ENVIRONMENTAL STUDIES.GRADUATE ADVISOR CNOV Observed: 06/27/2018 Status: COMPLETED Source: [place] 10:20 AM [facility] REPOSITORY Office Visit (INTMWS) DI ZAPATA ([id number]) 1945 F Date Time Provider Department 06/27/18 10:20 AM MILLICENT BARRIOS (KRISTEN) JAMESWS During your visit today, we recorded the following information about you: Temperature Pulse Respiration Blood pressure 97.7 degrees 82/minute 14/minute 120/80 Weight 74.6 kg Millicent Barrios APRN.CNP 06/27/2018 10:54 AM Signed CC: Patient presents with: Pre-Op Exam ? ? HPI Di Zapata is a 72 year old female who presents today for pre-op evaluation. Surgical Procedure: debridement of bilateral leg ulcers with Versajet and application of advanced wound care product Aminofil Date of Procedure: 07/03/18 Surgeon: Nora Spain DPM Patient had same procedure on 06/01/18. Denies any complications during or after. Pain was well controlled. ? METS: Walk indoors, such as around the house (1.75 METs): YES Do light work around the house, such as dusting or washing dishes (2.70 METs): YES Take care of self; that is eating, dressing, bathing, using the toilet (2.75 METs): YES Walk a block or two on level ground (2.75 METs): YES Do moderate work around the house such as vacuuming, sweeping floors, or carrying in groceries (3.50 METs): YES Do yardwork, such as raking leaves, weeding,or pushing a power mower (4.50 METs): NO Climb a flight of stairs or walk up a hill (5.50 METs): YES Participate in moderate recreational activities, such as golf, bowling, dancing, doubles tennis, or throwing a baseball or football (6.00 METs): NO Participate in strenuous sport, such as swimming, singles tennis, football, basketball, or skiing (7.50 METs): NO Do heavy work around the house, such as scrubbing floors, lifting or moving heavy furniture (8.00 METs): NO Run a short distance (8.00 METs): NO Total: 18.95 Patient denies any chest pain or undue shortness of breath with the above physical activity. ? 1. Diabetes: History of type 2 DM. No Longer on medication to treat. Last HgbA1c 6.0. Checking blood sugars fasting daily, usually in the 90's to 110's. This morning was 133. 2. Hypertension requiring medication: Yes Does not check BP's generally. Patient denies any side effects of her medication(s) and is compliant with their regimen. 3. 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 Occassionally gets SOB like she has too much fluid in me. Will notify her caponizer at those times and he usually has her increase Lasix for a few days. No recent increase in Lasix, takes 20 mg daily. Chronic edema that has improved. No significant weight gain, no orthopnea, no PND 4. Current Smoker within 1 Year: No 5. History of COPD: Thinks she has been told she has COPD. History of childhood asthma. Denies SOB, cough, wheezing. Does not use inhalers including rescue inhaler 6. History of LYN: Yes. Has not been wearing BiPAP because the last time she wore it she had a nightmare and woke up twisted in the tubing. Afraid she will hurt self if this happens again. 7. Dialysis: No but has history of CKD. History of hypercalcemia. Currently getting IV infusions twice a week to lower her calcium. Managed by heart surgeon Dr. Almonte, next appointment on 07/18. Denies any complications. ? REVIEW OF SYSTEMS General: no fevers, no chills, no night sweats, no recurrent infections. Improvement in appetite and energy level. Neck: no lumps, no pain and no swelling Respiratory: See HPI Cardiovascular: no chest pain, no chest pressure, no palpitations and See HPI GI: Negative for abdominal discomfort, blood in stools or black stools, change in bowel habit, heart burn, nausea, vomiting : Negative for dysuria, frequency, hematuria and hesitancy. Chronic incontinence. Neurologic: no syncope, no seizures, no dizziness, no memory loss, no confusion, no involuntary movements, no tremor PAST MEDICAL HISTORY Diagnosis Date - Ankylosing spondylitis (HCC) - Calcinosis 02/21/2018 - Diabetes mellitus without mention of complication Diabetes mellitus - Disorders of bursae and tendons in shoulder region, unspecified 06/20/2013 - Diverticulosis of colon (without mention of hemorrhage) - Eczema Dermatitis and Other Eczema, due to Unspec 09/16/2009 - Esophagitis - Essential hypertension, benign - Hypoxemia requiring supplemental oxygen 05/17/2017 - Internal hemorrhoids without mention of complication - Other diseases of lung, not elsewhere classified - Other dyspnea and respiratory abnormality dyspnea - PMH - PAST MEDICAL HISTORY OF carpal tunnel right - Rheumatoid arthritis(714.0) - Stricture and stenosis of esophagus - Unspecified sleep apnea PAST SURGICAL HISTORY Procedure Laterality Date - COLONOSCOP W/ OR W/O [facility] SPEC 07/02/07 - EGD W/O OR W/BRUSH/WASH 02/09/01 EGD - ESOPH W/O [facility] SPEC BALLOON DIL 02/09/01 Esophageal dilatation - MAZE PROCEDURE 01/12/[address] [facility] - MAZE PROCEDURE 05/04/2017 2nd part, [facility] - PAST SURGICAL HISTORY OF 1970 'patent ductus' - PAST SURGICAL HISTORY OF 1993 '[place]' Procedure - PAST SURGICAL HISTORY OF 1999 Left foot surgey - PAST SURGICAL HISTORY OF 2001 Lymph nodes (2) removed-Right Neck - PAST SURGICAL HISTORY OF 2003 mole removal - REMOVAL GALLBLADDER Cholecystectomy - VAG HYSTERCTMY W/EDNA REP VAG AANDP 1990 ovaries spared ALLERGIES Bactrim [Sulfamethoxazole-Trimethoprim]; Cardura [Doxazosin]; Ceftriaxone; Demerol [Meperidine (Pf)]; Doxycycline; Norvasc [Amlodipine Besylate]; Sulfa (Sulfonamide Antibiotics); Vasotec [Enalapril Maleate]; Vistaril [Hydroxyzine Hcl] MEDICATIONS pantoprazole DR (PROTONIX) 40 mg tablet Take 1 tablet by mouth twice daily. Take on empty stomach, 1/2 hr before meal. iron polysaccharide complex (FERREX 150) 150 mg iron capsule Take 1 capsule by mouth once daily. COMPOUNDED PRESCRIPTION Apply 1 application to affected area. Collagen Hydrogen FLUoxetine (PROZAC) 20 mg capsule Take 1 capsule by mouth once daily. furosemide (LASIX) 20 mg tablet Take 1 tablet by mouth every other day. predniSONE (DELTASONE) 10 mg tablet Take 1 tablet by mouth once daily. metoprolol tartrate, short acting, (LOPRESSOR) 25 mg tablet Take 1 tablet by mouth twice daily. potassium chloride (KLOR-CON 10) 10 mEq tablet Take 1 tablet by mouth daily with breakfast. gabapentin (NEURONTIN) 100 mg capsule Take 100 mg by mouth four times daily. Per Dr. Carbajal COMPOUNDED PRESCRIPTION Thigh High Compression Stockings 30- 40 mm DX: Lyphemdema- I89.0 morphine SR (MS CONTIN, ORAMORPH SR) 15 mg 12 hr tablet Take 1 tablet by mouth every 12 hours. FAMILY HISTORY Problem Relation Age of Onset - Arthritis Father - Diabetes Mother - Cancer Brother lymphoma - Cancer Maternal Uncle prostate Social History Substance Use Topics - Smoking status: Never Smoker - Smokeless tobacco: Never Used - Alcohol use No PHYSICAL EXAM BP 120/80 Pulse 82 Temp 36.5 ?C (97.7 ?F) (Temporal Artery) Resp 14 Wt 74.6 kg (164 lb 6.4 oz) SpO2 97% BMI 28.67 kg/m? General Appearance: well appearing, in no acute distress, alert Neck: Neck supple, No adenopathy Oropharynx: lips normal without lesions, tongue midline and normal, soft palate, uvula, and tonsils normal Lungs: Lungs clear to auscultation. No wheezing, rhonchi, rales Heart: RRR without murmur, gallop, or rubs. No ectopy Abdomen: soft, nondistended, nontender, no hepatosplenomegaly or masses Extremities: Unable to evaluate lower extremities due to wound wraps from knees to toes that cannot be removed. No upper extremity edema, skin discoloration, clubbing or cyanosis. Good capillary refill. Pulses: 2+. PICC in right upper arm intact, no redness or drainage. ASSESSMENT/PLAN: 1. Pre-operative evaluation Check: Check Complete Blood Count. METS: 18.95. No cardiac work-up indicated. Atrial Fibrillation / Flutter - Rate Controlled and Not on Anticoagulation CHF - LV systolic dysfunction - compensated. No recent acute exacerbations COPD - Mild and Condition is stable. Does not require inhalers. No history of life threatening or frequent exacerbations. DM- Diet controlled only. Last HgbA1c 6.0 ARNETT risk: Patient is scheduled for a low-risk procedure. HTN: BP well controlled with medications. Risk of 0.8 calculated using the NSQIP surgical risk calculator The patient is medically stable for surgery pending results of lab work-up. ? 2. Venous stasis ulcers of both lower extremities (HCC) - ICD9: 459.81, 707.10, ICD10: I83.019, I83.029, L97.919, L97.929 - OXYCODONE-ACETAMINOPHEN 5 MG-325 MG TABLET 3. Hypertension goal BP (blood pressure) < 150/90 - ICD9: 401.9, ICD10: I10 As above 4. Chronic atrial fibrillation (HCC) - ICD9: 427.31, ICD10: I48.2 As above 5. Type 2 diabetes mellitus with stage 3 chronic kidney disease, without long-term current use of insulin (HCC) - ICD9: 250.40, 585.3, ICD10: E11.22, N18.3 As above 6. Chronic systolic congestive heart failure (HCC) - ICD9: 428.22, 428.0, ICD10: I50.22 As above 7. Calcinosis - ICD9: 275.49, ICD10: E83.59 As above 8. Need for vaccination - ICD9: V05.9, ICD10: Z23 - INFLUENZA SEASONAL HIGH DOSE AGE 65+ Millicent Older, PROFESSOR OF ENVIRONMENTAL STUDIES.GRADUATE ADVISOR Referring Provider: SELF [[id number]] Allergies As of Date: 06/27/2018 Noted Allergy Reaction BACTRIM (SULFAMETHOXAZOLE-TRIMETH*06/29/2007 2 - Rash CARDURA (DOXAZOSIN) 04/24/2013 16 - Unknown CEFTRIAXONE 08/10/2017 14 - Other: See Comments Comments: Veins turned red DEMEROL (MEPERIDINE (PF)) 04/18/2006 DOXYCYCLINE 04/18/2006 NORVASC (AMLODIPINE BESYLATE) 04/06/2011 7 - Swelling SULFA (SULFONAMIDE ANTIBIOTICS) 07/04/2005 2 - Rash VASOTEC (ENALAPRIL MALEATE) 04/18/2006 3 - Cough VISTARIL (HYDROXYZINE HCL) 04/18/2006 Date Reviewed: 06/27/2018 Reviewed by: Veronique Powell 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 Assessed Reason for Visit: Pre Op Clearance [Other] Imm/Inj [58] Cmt: Flu Vaccine Reason For Visit History Recorded Primary Visit Diagnosis:Preop exam for internal medicine [Z01.818] Other Visit Diagnoses:Venous stasis ulcers of both lower extremities (HCC) [I83.019, I83.029, L97.919, L97.929] Hypertension goal BP (blood pressure) < 150/90 [I10] Chronic atrial fibrillation (HCC) [I48.2] Type 2 diabetes mellitus with stage 3 chronic kidney disease, without long-term current use of insulin (HCC) [E11.22, N18.3] Chronic systolic congestive heart failure (HCC) [I50.22] Calcinosis [E83.59] Need for vaccination [Z23] Order(s):CBC [SQCBC] Order #: [id number] FUTURE INFLUENZA SEASONAL HIGH DOSE AGE 65+ [[id number]] Order #: [id number] Prescriptions as of 06/27/2018 Sig: PANTOPRAZOLE 40 MG TABLET,DEL* Take 1 tablet by mouth twice * POLYSACCHARIDE IRON COMPLEX 1* Take 1 capsule by mouth once * COMPOUNDED PRESCRIPTION Apply 1 application to affect* FLUOXETINE 20 MG CAPSULE Take 1 capsule by mouth once * FUROSEMIDE 20 MG TABLET Take 1 tablet by mouth every * PREDNISONE 10 MG TABLET Take 1 tablet by mouth once d* METOPROLOL TARTRATE 25 MG TAB* Take 1 tablet by mouth twice * POTASSIUM CHLORIDE ER 10 MEQ * Take 1 tablet by mouth daily * GABAPENTIN 100 MG CAPSULE Take 100 mg by mouth four carlos* COMPOUNDED PRESCRIPTION Thigh High Compression Stocki* OXYCODONE-ACETAMINOPHEN 5 MG-* Take 1 tablet by mouth every * Problem List As Of Date 06/27/2018 Noted Resolved Hypertension goal BP (blood pressure) < 150/90 *INVALID FOR* More... Rheumatoid arthritis of multiple sites with neg*INVALID FOR* More... 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 Other diseases of lung, not elsewhere classifie*INVALID FOR*02/11/2015 More... SLEEP APNEA NOS [G47.30] INVALID FOR*04/18/2006 Obesity, unspecified [E66.9] INVALID FOR*02/11/2015 Impaired fasting glucose [R73.01] INVALID FOR*02/27/2012 More... 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] INVALID FOR*02/11/2015 Candidal intertrigo [B37.2] INVALID FOR*02/11/2015 Intertrigo [L30.4] INVALID FOR*02/11/2015 Eczema Dermatitis and Other Eczema, due to Unsp*INVALID FOR*09/28/2016 Diabetes mellitus (HCC) [E11.9] INVALID FOR*01/05/2015 Venous insufficiency [I87.2] INVALID FOR*07/15/2015 Edema [R60.9] INVALID FOR*02/11/2015 Pain in joint, shoulder region [M25.519] INVALID FOR*02/11/2015 Disorders of bursae and tendons in shoulder reg*INVALID FOR*09/28/2016 Diabetes mellitus type 2, controlled [E11.9] INVALID FOR*02/11/2015 DM (diabetes mellitus), type 2 (HCC) [E11.9] INVALID FOR*07/15/2015 Venous insufficiency (chronic) (peripheral) [I8*INVALID FOR*02/20/2018 More... Atrial fibrillation (HCC) [I48.91] INVALID FOR* More... Type 2 diabetes mellitus with diabetic chronic *INVALID FOR*01/06/2016 Lymphedema, not elsewhere classified [I89.0] INVALID FOR*05/17/2017 Type 2 diabetes mellitus with stage 3 chronic k*INVALID FOR* More... Pulmonary nodule [R91.1] INVALID FOR* More... Systolic congestive heart failure (HCC) [I50.20]INVALID FOR* More... Hydronephrosis [N13.30] INVALID FOR* UI (urinary incontinence) [R32] INVALID FOR* Patent ductus arteriosus [Q25.0] INVALID FOR* More... S/P Maze operation for atrial fibrillation [Z98*INVALID FOR* More... CKD (chronic kidney disease) stage 3, GFR 30-59*INVALID FOR* More... Anemia, unspecified [D64.9] INVALID FOR* Hypoxemia requiring supplemental oxygen [R09.02*INVALID FOR*10/19/2017 Hypercalcemia [E83.52] INVALID FOR* Hypervitaminosis D (rule out granulomatous dise*INVALID FOR* Venous stasis ulcers of both lower extremities *INVALID FOR* Depressive disorder [F32.9] INVALID FOR* Lumbar radiculopathy, chronic [M54.16] INVALID FOR* Gait abnormality [R26.9] INVALID FOR* Pyoderma gangrenosum [L88] INVALID FOR*02/21/2018 Anemia due to blood loss [D50.0] INVALID FOR* Calcinosis [E83.59] INVALID FOR* Medications Discontinued During This Encounter morphine SR (MS CONTIN, ORAMORPH SR)* 0 10/25/2017 06/27/2018 Class: Historical Med Route: ORAL Sig: Take 1 tablet by mouth every 12 hours. Disc: Discontinued by Patient Encounter Status:Closed by MILLICENT BARRIOS CNP on 06/27/18 OPERATIVE REPORT Observed: 06/05/2018 Status: F Source: [place] 8:06 AM [facility] REPOSITORY [facility] Medical Records Department [address] [place] [address] Operative Report 06/01/18 1510 MR#: [id number] Acct: [id number] Name: DI ZAPATA Rep #: [id number] : 1945 72 From: Nora Spain DPM PCP: Aaron Tidwell MD Status: DEP [facility] Y Location: [facility] Problem List (1) Ulcer of left lower extremity with fat layer exposed Status: Chronic (2) Calciphylaxis Status: Chronic (3) Ulcer of right lower extremity with fat layer exposed Status: Chronic (4) Pain in right leg Status: Chronic (5) Pain in left leg Status: Chronic Report of Operation Date of Procedure: 06/01/18 - resident: [place] Surgeon: Nora Spain DPM Pre-Operative Diagnosis: right leg ulcer with fat layer exposed. let leg ulcer with fat layer exposed. calciphylaxis Post-Operative Diagnosis: right leg ulcer with fat layer exposed. let leg ulcer with fat layer exposed. calciphylaxis Surgery/Procedure Performed:: subcutaneous excisional debridement of right leg ulcers. subcutaneous excisional debridement of left leg ulcers. application of advanced wound care product, amniofill Description of Surgical Findings:: hemostasis controlled; no tourniquet utilized Materials: 1000 mg advanced wound care product amnio fill, Adaptic and Steri-Strips Complications: None sql server dba developer: none Type of Anesthesia:: Local - Preoperative: 1-1 mix of 1% lidocaine plain and 0.5% Marcaine plain administered subdermally to all ulcer sites bilateral legs (20 cc), MAC Specimen's removed: none Estimated Blood Loss (mL): <40 mL Description of Procedure: Indications: This 72-year-old female with significant past medical history of atrial fibrillation, calciphylaxis, chronic diastolic heart failure, obstructive sleep apnea, depression, hypertension, myalgias, history of anemia and history of kidney disease has chronic bilateral lower extremity ulcers secondary to calciphylaxis flareup. She is being treated by heart surgeon, Dr. Almonte for long-term management of this condition with IV sodium thiosulfate and elimination of calcium products from her diet. She underwent a standard wound care plan including serial debridements, offloading, diet improvement, and advanced wound care product application including theraskin and Apligraf in the outpatient setting. She has ongoing delayed healing and does not have any local signs of infection at this time. Her pulses remain palpable. She was cleared by her medical doctor and I reviewed her history and physical exam. Her preoperative diagnostic data was also reviewed and she is stable at this time. The preoperative indications, planned procedure, possible benefits, risks, complications, and anticipated healing time management were discussed in detail with patient. She understands complications include but are not limited to the following: Infection, continued delayed or nonhealing, scarring, pain, swelling, need for additional surgery, loss of limb, function, or light, allergic reaction, blood clot. No guarantees were made. Informed surgical consent and surgical limbs were signed. I answered all her questions. The patient was transported to the operating room via cart and placed on the operating room table in supine position. Final verification the patient, surgery, limb designation Procedure in detail: The patient was transported to the operating room via cart and placed on the operating table in the supine position. Final verification was then performed via the timeout procedure including patient, planned procedure, and limb designation. IV antibiotics were administered preoperatively by the anesthesia team. MAC anesthesia was initiated by the anesthesia team. Local anesthesia was administered by the podiatry team as noted above. Lateral lower extremities were prepped and draped in the usual aseptic manner and surgery began as the following: Versa jet and setting 5 was used to perform a subcutaneous excisional debridement to all ulcer sites to remove nonviable fibrous tissue, devitalized subcutaneous tissue, biofilm, slough. Pressure was applied to maintain hemostasis and she appeared to have tolerated this well. There was no necrosis infection or uncontrolled bleeding noted. The ulcer ulcer bed is granular with some interspersed fibrous tissue. The wound beds with stellate shaped on the right limb. The ulcer debridement measurements were as the following on the right lower limb: Pre-debridement medial extends into the posterior cluster 12.5 cm x 13 cm x 0.1 cm (post debridement 12.6 cm x 13.1 cm x 0.1 cm), lateral 14.8 cm x 5.9 cm x 0.1 cm (post debridement 14.9 cm x 6.0 cm x 0.1 cm), superior medial 4.9 cm x 2.5 cm x 0.1 cm (post debridement 5.0 cm x 2.6 cm x 0.1 cm). The ulcer measurements were as the following on the left lower limb: Posterior lateral aspect 5.7 cm x 3.5 cm x 0.1 cm (post debridement 5.8 cm x 3.6 cm x 0.1 cm), proximal medial leg 1.0 cm x 0.7 cm x 0.7 cm (post debridement 1.1 cm x 0.8 cm x 0.7 cm). The recently debrided ulcer sites were next copiously irrigated with normal saline. Next advanced wound healing product, amniofil, was applied copiously to cover all debridement sites; 1000 mg was utilized. This was secured in place with Adaptic and Steri-Strips and further moistened with a saline gauze. A secondary dressing was additionally applied to this well adhered product site including gauze, abdominal pads, Kerlix, and Adrián wraps. After procedure: The patient tolerated the procedure and anesthesia well. She was transferred to the PACU with vital signs stable and intact to bilateral lower extremities. Her capillary refill time remains brisk to all digits of bilateral foot and there was no pulsatile bleeding noted prior to dressing application. She was advised to ice and elevate for pain and inflammation management. She was advised to keep her dressings clean, dry, and intact until she comes to the wound healing center next Monday. Postoperative orders were entered electronically. She understands this is likely a staged procedure and is part of a comprehensive wound healing plan. He is advised to continue to keep pressure directly off the sites and to continue with her calciphylaxis medical management with her heart surgeon. Nora Spain DPM, [facility] 06/05/18 0806 <Electronically signed by Nora Spain DPM> Date Nora Spain DPM CC: Nora Spain DPM; Aaron Tidwell MD Signed DISCHARGE INSTRUCTION Observed: 06/01/2018 Status: F Source: [place] 3:04 PM [facility] REPOSITORY [facility] Medical Records Department [address] [place] [address] Instructions for Home/Discharge Instructions 06/01/18 1503 MR#: [id number] Acct: [id number] Name: DI ZAPATA Rep #: [id number] : 1945 72 From: Nora Spain DPM PCP: Aaron Tidwell MD Status: REG [facility] Discharge Diet: No Restrictions Discharge Activity: May Not Shower Weight Bearing Status: Full weight bearing Keep extremity elevated above heart level: Left Leg, Right Leg Call your doctor if your incision/area has: Continuous Slow Oozing, Sudden Increased Bleeding, Increased Pain/ Swelling, Increased Redness, Foul Smelling Discharge Call your doctor if you observe: Fever of 101 or Higher, Swelling in the ankles, Calf discomfort, Uncontrolled pain Cleanse incision/area with: Keep Dressing Clean AND Dry Allergies/Adverse Reactions: Allergies amlodipine besylate [From Norvasc] Allergy (Verified 05/25/18 14:43) Unknown ceftriaxone Allergy (Verified 05/25/18 14:43) Rash doxazosin [From Cardura] Allergy (Verified 05/25/18 14:44) Unknown doxazosin mesylate [From Cardura] Allergy (Verified 05/25/18 14:43) Other VEINS TURNED RED doxycycline Allergy (Verified 05/25/18 14:43) Unknown Pt doesn't remember enalapril maleate [From Vasotec] Allergy (Verified 05/25/18 14:43) Rash enalaprilat dihydrate [From Vasotec] Allergy (Verified 05/25/18 14:43) Rash hydroxyzine HCl [From Vistaril] Allergy (Verified 05/25/18 14:43) Rash hydroxyzine pamoate [From Vistaril] Allergy (Verified 05/25/18 14:43) Rash meperidine HCl [From Demerol] Allergy (Verified 05/25/18 14:43) Rash Sulfa (Sulfonamide Antibiotics) Allergy (Verified 05/25/18 14:43) Hives sulfamethoxazole [From Bactrim] Allergy (Verified 05/25/18 14:43) Hives trimethoprim [From Bactrim] Allergy (Verified 05/25/18 14:43) Hives Medications to take at Discharge Gabapentin [Neurontin] 100 mg PO TID 09/29/17 Fluoxetine [Prozac] 20 mg PO DAILY 09/30/17 furosemide 40 mg tablet 20 mg PO DAILY tab 10/11/17 Metoprolol Tartrate [Lopressor (beta alok)] 25 mg PO BID 12/12/17 Potassium Chloride [K-Tab ER] 10 meq PO QDAY 12/12/17 Morphine Sulfate [Morphine Sulfate ER] 15 mg PO DAILY 04/08/18 Iron Polysaccharide Complex [Ferrex 150] 150 mg PO DAILYCM 05/25/18 Prednisone 10 mg PO DAILY 05/25/18 Primary Care Physician: Aaron Tidwell MD [Primary Care Provider] - Test Results: Test results from this visit will be discussed in further detail at your follow-up appointment, if applicable. Please Follow Up With: Nora Spain DPM When: next Monday at [facility]; call [phone] if questions/concerns Proposed Discharge Date: 06/01/18 06/01/18 1504 <Electronically signed by Nora Spain DPM> Date Nora Spain DPM CC: Aaron Tidwell MD [facility] Observed: 05/25/2018 Status: COMPLETED Source: [place] 12:00 AM [facility] REPOSITORY Telephone (INTMWS) DI ZAPATA ([id number]) 1945 F Date Time Provider Department 05/25/18 AARON TIDWELL During your visit today, we recorded the following information about you: Katie Cat RN 05/25/2018 11:38 AM Signed Jace quevedo from [facility] #[phone], stating she faxed preop clearance form and copy of [facility] labs for Millicent to review . She needs the form completed and copy of Millicent's office note faxed to her at fax # [phone]. Patient's surgery is 06/01. Please send today if possible. Please review and advise. ANNETTA Gil Cma 05/25/2018 11:50 AM Signed Faxed as requested to number provided. Veronique Barrios, KARISSA 05/25/2018 1:21 PM Signed FYI, this was all faxed yesterday including signed and completed pre-op clearance form Millicent Barrios PROFESSOR OF ENVIRONMENTAL STUDIES.KRISTEN Allergies As of Date: 05/25/2018 Noted Allergy Reaction BACTRIM (SULFAMETHOXAZOLE-TRIMETH*06/29/2007 2 - Rash CARDURA (DOXAZOSIN) 04/24/2013 16 - Unknown CEFTRIAXONE 08/10/2017 14 - Other: See Comments Comments: Veins turned red DEMEROL (MEPERIDINE (PF)) 04/18/2006 DOXYCYCLINE 04/18/2006 NORVASC (AMLODIPINE BESYLATE) 04/06/2011 7 - Swelling SULFA (SULFONAMIDE ANTIBIOTICS) 07/04/2005 2 - Rash VASOTEC (ENALAPRIL MALEATE) 04/18/2006 3 - Cough VISTARIL (HYDROXYZINE HCL) 04/18/2006 Date Reviewed: 05/23/2018 Reviewed by: Veronique Powell Cma - Fully Assessed Reason for Visit: pre-op clearance [Other] Cmt: form and office note Prescriptions as of 05/25/2018 Sig: PANTOPRAZOLE 40 MG TABLET,DEL* Take 1 tablet by mouth twice * POLYSACCHARIDE IRON COMPLEX 1* Take 1 capsule by mouth once * COMPOUNDED PRESCRIPTION Apply 1 application to affect* FLUOXETINE 20 MG CAPSULE Take 1 capsule by mouth once * FUROSEMIDE 20 MG TABLET Take 1 tablet by mouth every * PREDNISONE 10 MG TABLET Take 1 tablet by mouth once d* METOPROLOL TARTRATE 25 MG TAB* Take 1 tablet by mouth twice * POTASSIUM CHLORIDE ER 10 MEQ * Take 1 tablet by mouth daily * MORPHINE ER 15 MG TABLET,EXTE* Take 1 tablet by mouth every * GABAPENTIN 100 MG CAPSULE Take 100 mg by mouth four carlos* COMPOUNDED PRESCRIPTION Thigh High Compression Stocki* Problem List As Of Date 05/25/2018 Noted Resolved Hypertension goal BP (blood pressure) < 150/90 *INVALID FOR* More... Rheumatoid arthritis of multiple sites with neg*INVALID FOR* More... 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 Other diseases of lung, not elsewhere classifie*INVALID FOR*02/11/2015 More... SLEEP APNEA NOS [G47.30] INVALID FOR*04/18/2006 Obesity, unspecified [E66.9] INVALID FOR*02/11/2015 Impaired fasting glucose [R73.01] INVALID FOR*02/27/2012 More... 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] INVALID FOR*02/11/2015 Candidal intertrigo [B37.2] INVALID FOR*02/11/2015 Intertrigo [L30.4] INVALID FOR*02/11/2015 Eczema Dermatitis and Other Eczema, due to Unsp*INVALID FOR*09/28/2016 Diabetes mellitus (HCC) [E11.9] INVALID FOR*01/05/2015 Venous insufficiency [I87.2] INVALID FOR*07/15/2015 Edema [R60.9] INVALID FOR*02/11/2015 Pain in joint, shoulder region [M25.519] INVALID FOR*02/11/2015 Disorders of bursae and tendons in shoulder reg*INVALID FOR*09/28/2016 Diabetes mellitus type 2, controlled [E11.9] INVALID FOR*02/11/2015 DM (diabetes mellitus), type 2 (HCC) [E11.9] INVALID FOR*07/15/2015 Venous insufficiency (chronic) (peripheral) [I8*INVALID FOR*02/20/2018 More... Atrial fibrillation (HCC) [I48.91] INVALID FOR* More... Type 2 diabetes mellitus with diabetic chronic *INVALID FOR*01/06/2016 Lymphedema, not elsewhere classified [I89.0] INVALID FOR*05/17/2017 Type 2 diabetes mellitus with stage 3 chronic k*INVALID FOR* More... Pulmonary nodule [R91.1] INVALID FOR* More... Systolic congestive heart failure (HCC) [I50.20]INVALID FOR* More... Hydronephrosis [N13.30] INVALID FOR* UI (urinary incontinence) [R32] INVALID FOR* Patent ductus arteriosus [Q25.0] INVALID FOR* More... S/P Maze operation for atrial fibrillation [Z98*INVALID FOR* More... CKD (chronic kidney disease) stage 3, GFR 30-59*INVALID FOR* More... Anemia, unspecified [D64.9] INVALID FOR* Hypoxemia requiring supplemental oxygen [R09.02*INVALID FOR*10/19/2017 Hypercalcemia [E83.52] INVALID FOR* Hypervitaminosis D (rule out granulomatous dise*INVALID FOR* Venous stasis ulcers of both lower extremities *INVALID FOR* Depressive disorder [F32.9] INVALID FOR* Lumbar radiculopathy, chronic [M54.16] INVALID FOR* Gait abnormality [R26.9] INVALID FOR* Pyoderma gangrenosum [L88] INVALID FOR*02/21/2018 Anemia due to blood loss [D50.0] INVALID FOR* Calcinosis [E83.59] INVALID FOR* Encounter Status:Closed by VERONIQUE POWELL CMA on 05/25/18 MISCELLANEOUS LAB Collected: 05/23/2018 Status: F Source: [place] PROCEDURE 1:33 PM [facility] REPOSITORY Order Comment: Comments: [id number] Cyanide, Occupational Exposure, Whole B Test(s) Ordered: [id number] Cyanide, Occupational Exposure, Whole B TYPE CODE TESTS RESULT OUT OF RANGE REFERENCE UNITS LAB L801.1541 Normal [facility] LAB TEST Result Comment: TEST RESULT LIMITS Cyanide Occ Exposure, Bl Cyanide <0.100 mg/l Analysis performed by [facility], [address] [place] [id number]. Enterprise Application Administrator: Kory Loja MD, PHD, CLIA: [id number] Normal (unexposed population): non smoker: less than 0.025 mg/L smoker: average 0.41 mg/L Exposed: Levels of less than 0.2 mg/L have been found to be non-toxic; however, levels of 0.5 to 1.0 mg/L have been associated with tachycardia and flushing. Toxic: Levels of 1.0 - 2.5 mg/L have been associated with obtundation, coma and respiratory depression with levels greater than 2.5 mg/L, and with values greater than 3 mg/L. This test was developed and its performance characteristics determined by [facility]. It has not been cleared or approved by the Food and Drug Administration. TESTING PERFORMED AT [facility]. ORIGINAL REPORT ON FILE IN LAB CONTAINS ADDITIONAL TEST SITE INFORMATION. Performed By: #### L801.1541 #### [facility] [address] [place], [address] CBC W/DIFF, AUTOMATED Collected: 05/23/2018 Status: F Source: [place] 1:32 PM [facility] REPOSITORY TYPE CODE TESTS RESULT OUT OF RANGE REFERENCE UNITS LAB L100.1000 4.4-11.0 K/mm3 Low WBC 4.1 LAB L100.1200 4.2-5.4 M/mm3 Normal RBC 4.75 LAB L100.1300 12.0-15.0 g/dl Low HGB 11.5 LAB L100.1400 37-47 % Normal HCT 37.6 LAB L100.1500 81-99 fL Low MCV 79.2 LAB L100.1600 27.0-32.0 pg Low MCH 24.2 LAB L100.1700 32-36 g/gl Low MCHC 30.6 LAB L100.1810 11.6-14.6 % High RDW CV 21.5 LAB L100.1820 35.1-43.9 fl High RDW SD 60.8 LAB L100.1900 150-450 K/mm3 Normal PLT 181 LAB L100.2000 6.2-12.0 fl Normal MPV 10.5 LAB L100.2100 47-70 % Normal NEUT% 54.4 LAB L100.2200 19-41 % Normal LY% 26.6 LAB L100.2300 0-10 % High MONO% 17.1 LAB L100.2400 0-5 % Normal EO% 1.5 LAB L100.2500 0-1 % Normal BASO% 0.2 LAB L100.2550 0.0-0.9 % Normal IM GRAN % 0.200 Result Comment: IG% - Immature Granulocytes (promyelocytes, myelocytes and metamyelocytes) > 1% indicates that a LEFT SHIFT is Present. LAB L100.2620 2.0-7.7 X10 3/uL Normal Absolute Neut 2.2 LAB L100.2720 0.83-4.51 X10 3/ul Normal Absolute Lymph 1.09 LAB L100.4500 Normal SMEAR COMMENT SCANNED Performed By: #### L100.0100 #### [facility] [address] [place], [place], [id number] COMPREHENSIVE METABOLIC Collected: 05/23/2018 Status: F Source: [facility] 1:32 PM [facility] REPOSITORY TYPE CODE TESTS RESULT OUT OF RANGE REFERENCE UNITS LAB L501.0100 74-106 mg/dL High GLU 151 Result Comment: Fasting Glucose result greater than or equal to 126 mg/dL suggests DIABETES MELLITUS per A.D.A. criteria. Please note revised GLUCOSE reference range effective 2017. LAB L501.1000 7-18 mg/dL Normal BUN 16 LAB L501.1100 0.55-1.02 mg/dL High CREAT,SERUM 1.32 Result Comment: The validity of the calculated GFR AND GFRAA in patients over 70 years has not been determined. Clinical correlation is essential. LAB L501.1110 >60 mL/min Low EST GFR 42 Result Comment: Non- GFR Calc LAB L501.1115 >60 mL/min Low EST GFR - AA 51 Result Comment: GFR Calc LAB L501.1300 10-20 RATIO Normal BUN/CRE 12.1 LAB L501.1500 6.4-8.2 g/dL T Normal PROT 7.6 LAB L501.1800 3.2-5.0 g/dL Low ALB 3.1 LAB L501.1950 2.2-4.2 g/dL High GLOB 4.5 LAB L501.2000 0.9-2.4 RATIO Low A/G 0.7 LAB L501.2200 8.5-10.1 mg/dL High CA 10.7 LAB L501.4100 15-37 U/L Normal AST 30 LAB L501.4305 45-117 U/L Normal ALK P 99 LAB L501.4405 13-56 U/L Normal ALT 18 LAB L501.4600 0.20-1.00 mg/dL T Normal BILI 0.70 LAB L501.5300 136-145 mmol/L NA Normal 140 LAB L501.5600 3.5-5.1 mmol/L K Normal 3.5 LAB L501.5900 98-107 mmol/L CL Normal 103 LAB L501.6100 21.0-32.0 mmol/L Normal CO2 28.0 LAB L501.6200 5-15 Normal GAP 9 Performed By: #### L500.4050 #### [facility] [address] [place], [place], [address] PROGRESS Observed: 05/23/2018 Status: COMPLETED Source: [place] 11:23 AM [facility] [place] REPOSITORY HNO ID: [id number] Author: Millicent (Kristen) Older Service: (none) Author Type: Nurse Practitioner Type: Progress Notes Filed: 05/23/2018 1:54 PM Note Text: CC: Patient presents with: Pre-Op Exam BISHOP Zapata is a 72 year old female who presents today for pre-op evaluation. Surgical Procedure: debridement of bilateral leg ulcers with Versajet and application of advanced wound care product Aminofil Date of Procedure: 06/01/18 Surgeon: Nora Spain DPHoney METS: Walk indoors, such as around the house (1.75 METs): YES Do light work around the house, such as dusting or washing dishes (2.70 METs): YES Take care of self; that is eating, dressing, bathing, using the toilet (2.75 METs): YES Walk a block or two on level ground (2.75 METs): YES Do moderate work around the house such as vacuuming, sweeping floors, or carrying in groceries (3.50 METs): YES Do yardwork, such as raking leaves, weeding,or pushing a power mower (4.50 METs): NO Climb a flight of stairs or walk up a hill (5.50 METs): YES Participate in moderate recreational activities, such as golf, bowling, dancing, doubles tennis, or throwing a baseball or football (6.00 METs): NO Participate in strenuous sport, such as swimming, singles tennis, football, basketball, or skiing (7.50 METs): NO Do heavy work around the house, such as scrubbing floors, lifting or moving heavy furniture (8.00 METs): NO Run a short distance (8.00 METs): NO Total: 18.95 Patient denies any chest pain or undue shortness of breath with the above physical activity. 1. Diabetes: History of type 2 DM. No Longer on medication to treat. Last HgbA1c 6.0. Checking blood sugars occasionally, usually in the 90's to 110's. 2. Hypertension requiring medication: Yes Does not check BP's generally. Patient denies any side effects of her medication(s) and is compliant with their regimen. 3. 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 Occassionally gets SOB like she has too much fluid in me. Will notify her caponizer at those times and he usually has her increase Lasix for a few days. Last increase was one month ago. Chronic edema that is no worse than usual, no significant weight gain, no orthopnea, no PND 4. Current Smoker within 1 Year: No 5. History of COPD: Thinks she has been told she has COPD. History of childhood asthma. Denies SOB, cough, wheezing. Does not use inhalers including rescue inhaler 6. History of LYN: Yes. Wears BiPAP nightly 7. Dialysis: No but has history of CKD, told it is due to the Lasix. History of hypercalcemia. Currently getting IV infusions twice a week to lower her calcium. Managed by heart surgeon Dr. Almonte. Denies any complications. REVIEW OF SYSTEMS General: no fevers, no chills, no night sweats, no recurrent infections, no change in appetite, no change in energy and no significant changes in weight Neck: no lumps, no pain and no swelling Respiratory: See HPI Cardiovascular: no chest pain, no chest pressure, no palpitations and See HPI GI: Negative for abdominal discomfort, blood in stools or black stools, change in bowel habit, heart burn, nausea, vomiting : Negative for dysuria, frequency, incontinence and hesitancy Neurologic: no syncope, no seizures, no dizziness, no memory loss, no confusion, no involuntary movements, no tremor PAST MEDICAL HISTORY Diagnosis Date - Ankylosing spondylitis (HCC) - Calcinosis 02/21/2018 - Diabetes mellitus without mention of complication Diabetes mellitus - Disorders of bursae and tendons in shoulder region, unspecified 06/20/2013 - Diverticulosis of colon (without mention of hemorrhage) - Eczema Dermatitis and Other Eczema, due to Unspec 09/16/2009 - Esophagitis - Essential hypertension, benign - Hypoxemia requiring supplemental oxygen 05/17/2017 - Internal hemorrhoids without mention of complication - Other diseases of lung, not elsewhere classified - Other dyspnea and respiratory abnormality dyspnea - PMH - PAST MEDICAL HISTORY OF carpal tunnel right - Rheumatoid arthritis(714.0) - Stricture and stenosis of esophagus - Unspecified sleep apnea PAST SURGICAL HISTORY Procedure Laterality Date - COLONOSCOP W/ OR W/O [facility] SPEC 07/02/07 - EGD W/O OR W/BRUSH/WASH 02/09/01 EGD - ESOPH W/O [facility] SPEC BALLOON DIL 02/09/01 Esophageal dilatation - MAZE PROCEDURE 01/12/2017 [facility], [facility] - MAZE PROCEDURE 05/04/2017 [facility], [facility] - PAST SURGICAL HISTORY OF 1970 'patent ductus' - PAST SURGICAL HISTORY OF 1993 '[place]' Procedure - PAST SURGICAL HISTORY OF 1999 Left foot surgey - PAST SURGICAL HISTORY OF 2001 Lymph nodes (2) removed-Right Neck - PAST SURGICAL HISTORY OF 2003 mole removal - REMOVAL GALLBLADDER Cholecystectomy - VAG HYSTERCTMY W/EDNA REP VAG AANDP 1990 ovaries spared ALLERGIES Bactrim [Sulfamethoxazole-Trimethoprim]; Cardura [Doxazosin]; Ceftriaxone; Demerol [Meperidine (Pf)]; Doxycycline; Norvasc [Amlodipine Besylate]; Sulfa (Sulfonamide Antibiotics); Vasotec [Enalapril Maleate]; Vistaril [Hydroxyzine Hcl] MEDICATIONS pantoprazole DR (PROTONIX) 40 mg tablet Take 1 tablet by mouth twice daily. Take on empty stomach, 1/2 hr before meal. iron polysaccharide complex (FERREX 150) 150 mg iron capsule Take 1 capsule by mouth once daily. COMPOUNDED PRESCRIPTION Apply 1 application to affected area. Collagen Hydrogen FLUoxetine (PROZAC) 20 mg capsule Take 1 capsule by mouth once daily. predniSONE (DELTASONE) 10 mg tablet Take 1 tablet by mouth once daily. gabapentin (NEURONTIN) 100 mg capsule Take 100 mg by mouth four times daily. Per Dr. Carbajal COMPOUNDED PRESCRIPTION Thigh High Compression Stockings 30- 40 mm DX: Lyphemdema- I89.0 furosemide (LASIX) 20 mg tablet Take 1 tablet by mouth every other day. metoprolol tartrate, short acting, (LOPRESSOR) 25 mg tablet Take 1 tablet by mouth twice daily. potassium chloride (KLOR-CON 10) 10 mEq tablet Take 1 tablet by mouth daily with breakfast. morphine SR (MS CONTIN, ORAMORPH SR) 15 mg 12 hr tablet Take 1 tablet by mouth every 12 hours. FAMILY HISTORY Problem Relation Age of Onset - Arthritis Father - Diabetes Mother - Cancer Brother lymphoma - Cancer Maternal Uncle prostate Social History Substance Use Topics - Smoking status: Never Smoker - Smokeless tobacco: Never Used - Alcohol use No PHYSICAL EXAM BP 130/80 Pulse 63 Temp 36.5 ?C (97.7 ?F) (Temporal Artery) Resp 16 Wt 75.5 kg (166 lb 6.4 oz) SpO2 94% BMI 29.01 kg/m? General Appearance: well appearing, in no acute distress, alert Neck: Thyroid normal size and symmetric without palpable nodules, Neck supple, No adenopathy Oropharynx: lips normal without lesions, tongue midline and normal, soft palate, uvula, and tonsils normal Lungs: Lung sounds diminished with faint wheezing posteriorly. No rales or rhonchi. Heart: Apical irregular. without murmur, gallop, or rubs. No ectopy Abdomen: soft, nondistended, nontender, no hepatosplenomegaly or masses Extremities: Unable to evaluate lower extremities due to wound wraps from knees to toes that cannot be removed. No upper extremity edema, skin discoloration, clubbing or cyanosis. Good capillary refill. Pulses: 2+ Diagnoses/Plan 1. Pre-operative evaluation Check: Check Complete Metabolic Panel and Complete Blood Count. METS: 18.95. No cardiac work-up indicated. Atrial Fibrillation / Flutter - Rate Controlled and Not on Anticoagulation CHF - LV systolic dysfunction - compensated. No recent acute exacerbations COPD - Mild and Condition is stable. Does not require inhalers. No history of life threatening or frequent exacerbations. DM- Diet controlled only. Last HgbA1c 6.0 ARNETT risk: Patient is scheduled for a low-risk procedure. HTN: BP well controlled with medications. Risk of 1.4% calculated using the NSQIP surgical risk calculator The patient is medically stable for surgery pending results of lab work-up. Millicent Barrios APRN.CNP CNOV Observed: 05/23/2018 Status: COMPLETED Source: [place] 11:20 AM [facility] REPOSITORY Office Visit (INTMWS) DI ZAPATA ([id number]) 1945 F Date Time Provider Department 05/23/18 11:20 AM MILLICENT BARRIOS (KRISTEN) INTMWS During your visit today, we recorded the following information about you: Temperature Pulse Respiration Blood pressure 97.7 degrees 63/minute 16/minute 130/80 Weight 75.5 kg Millicent Barrios APRN.CNP 05/23/2018 1:54 PM Signed CC: Patient presents with: Pre-Op Exam HPI Di Zapata is a 72 year old female who presents today for pre-op evaluation. Surgical Procedure: debridement of bilateral leg ulcers with Versajet and application of advanced wound care product Aminofil Date of Procedure: 06/01/18 Surgeon: Nora Spain DPM METS: Walk indoors, such as around the house (1.75 METs): YES Do light work around the house, such as dusting or washing dishes (2.70 METs): YES Take care of self; that is eating, dressing, bathing, using the toilet (2.75 METs): YES Walk a block or two on level ground (2.75 METs): YES Do moderate work around the house such as vacuuming, sweeping floors, or carrying in groceries (3.50 METs): YES Do yardwork, such as raking leaves, weeding,or pushing a power mower (4.50 METs): NO Climb a flight of stairs or walk up a hill (5.50 METs): YES Participate in moderate recreational activities, such as golf, bowling, dancing, doubles tennis, or throwing a baseball or football (6.00 METs): NO Participate in strenuous sport, such as swimming, singles tennis, football, basketball, or skiing (7.50 METs): NO Do heavy work around the house, such as scrubbing floors, lifting or moving heavy furniture (8.00 METs): NO Run a short distance (8.00 METs): NO Total: 18.95 Patient denies any chest pain or undue shortness of breath with the above physical activity. 1. Diabetes: History of type 2 DM. No Longer on medication to treat. Last HgbA1c 6.0. Checking blood sugars occasionally, usually in the 90's to 110's. 2. Hypertension requiring medication: Yes Does not check BP's generally. Patient denies any side effects of her medication(s) and is compliant with their regimen. 3. 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 Occassionally gets SOB like she has too much fluid in me. Will notify her caponizer at those times and he usually has her increase Lasix for a few days. Last increase was one month ago. Chronic edema that is no worse than usual, no significant weight gain, no orthopnea, no PND 4. Current Smoker within 1 Year: No 5. History of COPD: Thinks she has been told she has COPD. History of childhood asthma. Denies SOB, cough, wheezing. Does not use inhalers including rescue inhaler 6. History of LYN: Yes. Wears BiPAP nightly 7. Dialysis: No but has history of CKD, told it is due to the Lasix. History of hypercalcemia. Currently getting IV infusions twice a week to lower her calcium. Managed by heart surgeon Dr. Almonte. Denies any complications. REVIEW OF SYSTEMS General: no fevers, no chills, no night sweats, no recurrent infections, no change in appetite, no change in energy and no significant changes in weight Neck: no lumps, no pain and no swelling Respiratory: See HPI Cardiovascular: no chest pain, no chest pressure, no palpitations and See HPI GI: Negative for abdominal discomfort, blood in stools or black stools, change in bowel habit, heart burn, nausea, vomiting : Negative for dysuria, frequency, incontinence and hesitancy Neurologic: no syncope, no seizures, no dizziness, no memory loss, no confusion, no involuntary movements, no tremor PAST MEDICAL HISTORY Diagnosis Date - Ankylosing spondylitis (HCC) - Calcinosis 02/21/2018 - Diabetes mellitus without mention of complication Diabetes mellitus - Disorders of bursae and tendons in shoulder region, unspecified 06/20/2013 - Diverticulosis of colon (without mention of hemorrhage) - Eczema Dermatitis and Other Eczema, due to Unspec 09/16/2009 - Esophagitis - Essential hypertension, benign - Hypoxemia requiring supplemental oxygen 05/17/2017 - Internal hemorrhoids without mention of complication - Other diseases of lung, not elsewhere classified - Other dyspnea and respiratory abnormality dyspnea - PMH - PAST MEDICAL HISTORY OF carpal tunnel right - Rheumatoid arthritis(714.0) - Stricture and stenosis of esophagus - Unspecified sleep apnea PAST SURGICAL HISTORY Procedure Laterality Date - COLONOSCOP W/ OR W/O [facility] SPEC 07/02/07 - EGD W/O OR W/BRUSH/WASH 02/09/01 EGD - ESOPH W/O [facility] SPEC BALLOON DIL 02/09/01 Esophageal dilatation - MAZE PROCEDURE 01/12/[address] [facility] - MAZE PROCEDURE 05/04/[address] [place] [address] - PAST SURGICAL HISTORY OF 1970 'patent ductus' - PAST SURGICAL HISTORY OF 1993 '[place]' Procedure - PAST SURGICAL HISTORY OF 1999 Left foot surgey - PAST SURGICAL HISTORY OF 2001 Lymph nodes (2) removed-Right Neck - PAST SURGICAL HISTORY OF 2003 mole removal - REMOVAL GALLBLADDER Cholecystectomy - VAG HYSTERCTMY W/EDNA REP VAG AANDP 1990 ovaries spared ALLERGIES Bactrim [Sulfamethoxazole-Trimethoprim]; Cardura [Doxazosin]; Ceftriaxone; Demerol [Meperidine (Pf)]; Doxycycline; Norvasc [Amlodipine Besylate]; Sulfa (Sulfonamide Antibiotics); Vasotec [Enalapril Maleate]; Vistaril [Hydroxyzine Hcl] MEDICATIONS pantoprazole DR (PROTONIX) 40 mg tablet Take 1 tablet by mouth twice daily. Take on empty stomach, 1/2 hr before meal. iron polysaccharide complex (FERREX 150) 150 mg iron capsule Take 1 capsule by mouth once daily. COMPOUNDED PRESCRIPTION Apply 1 application to affected area. Collagen Hydrogen FLUoxetine (PROZAC) 20 mg capsule Take 1 capsule by mouth once daily. predniSONE (DELTASONE) 10 mg tablet Take 1 tablet by mouth once daily. gabapentin (NEURONTIN) 100 mg capsule Take 100 mg by mouth four times daily. Per Dr. Carbajal COMPOUNDED PRESCRIPTION Thigh High Compression Stockings 30- 40 mm DX: Lyphemdema- I89.0 furosemide (LASIX) 20 mg tablet Take 1 tablet by mouth every other day. metoprolol tartrate, short acting, (LOPRESSOR) 25 mg tablet Take 1 tablet by mouth twice daily. potassium chloride (KLOR-CON 10) 10 mEq tablet Take 1 tablet by mouth daily with breakfast. morphine SR (MS CONTIN, ORAMORPH SR) 15 mg 12 hr tablet Take 1 tablet by mouth every 12 hours. FAMILY HISTORY Problem Relation Age of Onset - Arthritis Father - Diabetes Mother - Cancer Brother lymphoma - Cancer Maternal Uncle prostate Social History Substance Use Topics - Smoking status: Never Smoker - Smokeless tobacco: Never Used - Alcohol use No PHYSICAL EXAM BP 130/80 Pulse 63 Temp 36.5 ?C (97.7 ?F) (Temporal Artery) Resp 16 Wt 75.5 kg (166 lb 6.4 oz) SpO2 94% BMI 29.01 kg/m? General Appearance: well appearing, in no acute distress, alert Neck: Thyroid normal size and symmetric without palpable nodules, Neck supple, No adenopathy Oropharynx: lips normal without lesions, tongue midline and normal, soft palate, uvula, and tonsils normal Lungs: Lung sounds diminished with faint wheezing posteriorly. No rales or rhonchi. Heart: Apical irregular. without murmur, gallop, or rubs. No ectopy Abdomen: soft, nondistended, nontender, no hepatosplenomegaly or masses Extremities: Unable to evaluate lower extremities due to wound wraps from knees to toes that cannot be removed. No upper extremity edema, skin discoloration, clubbing or cyanosis. Good capillary refill. Pulses: 2+ Diagnoses/Plan 1. Pre-operative evaluation Check: Check Complete Metabolic Panel and Complete Blood Count. METS: 18.95. No cardiac work-up indicated. Atrial Fibrillation / Flutter - Rate Controlled and Not on Anticoagulation CHF - LV systolic dysfunction - compensated. No recent acute exacerbations COPD - Mild and Condition is stable. Does not require inhalers. No history of life threatening or frequent exacerbations. DM- Diet controlled only. Last HgbA1c 6.0 ARNETT risk: Patient is scheduled for a low-risk procedure. HTN: BP well controlled with medications. Risk of 1.4% calculated using the NSQIP surgical risk calculator The patient is medically stable for surgery pending results of lab work-up. Millicent Barrios APRN.GRADUATE ADVISOR Referring Provider: NORA SPAIN [[id number]] Allergies As of Date: 05/23/2018 Noted Allergy Reaction BACTRIM (SULFAMETHOXAZOLE-TRIMETH*06/29/2007 2 - Rash CARDURA (DOXAZOSIN) 04/24/2013 16 - Unknown CEFTRIAXONE 08/10/2017 14 - Other: See Comments Comments: Veins turned red DEMEROL (MEPERIDINE (PF)) 04/18/2006 DOXYCYCLINE 04/18/2006 NORVASC (AMLODIPINE BESYLATE) 04/06/2011 7 - Swelling SULFA (SULFONAMIDE ANTIBIOTICS) 07/04/2005 2 - Rash VASOTEC (ENALAPRIL MALEATE) 04/18/2006 3 - Cough VISTARIL (HYDROXYZINE HCL) 04/18/2006 Date Reviewed: 05/23/2018 Reviewed by: Veronique Powell [employer] 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 Reason for Visit: Pre-Op Exam [87] Primary Visit Diagnosis:Preop exam for internal medicine [Z01.818] Order(s):CBC + DIFF [SQCBCDIF] Order #: [id number] FUTURE COMP METABOLIC PANEL [SQCMP] Order #: [id number] FUTURE Prescriptions as of 05/23/2018 Sig: PANTOPRAZOLE 40 MG TABLET,DEL* Take 1 tablet by mouth twice * POLYSACCHARIDE IRON COMPLEX 1* Take 1 capsule by mouth once * COMPOUNDED PRESCRIPTION Apply 1 application to affect* FLUOXETINE 20 MG CAPSULE Take 1 capsule by mouth once * PREDNISONE 10 MG TABLET Take 1 tablet by mouth once d* GABAPENTIN 100 MG CAPSULE Take 100 mg by mouth four carlos* COMPOUNDED PRESCRIPTION Thigh High Compression Stocki* FUROSEMIDE 20 MG TABLET Take 1 tablet by mouth every * METOPROLOL TARTRATE 25 MG TAB* Take 1 tablet by mouth twice * POTASSIUM CHLORIDE ER 10 MEQ * Take 1 tablet by mouth daily * MORPHINE ER 15 MG TABLET,EXTE* Take 1 tablet by mouth every * Problem List As Of Date 05/23/2018 Noted Resolved Hypertension goal BP (blood pressure) < 150/90 *INVALID FOR* More... Rheumatoid arthritis of multiple sites with neg*INVALID FOR* More... 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 Other diseases of lung, not elsewhere classifie*INVALID FOR*02/11/2015 More... SLEEP APNEA NOS [G47.30] INVALID FOR*04/18/2006 Obesity, unspecified [E66.9] INVALID FOR*02/11/2015 Impaired fasting glucose [R73.01] INVALID FOR*02/27/2012 More... 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] INVALID FOR*02/11/2015 Candidal intertrigo [B37.2] INVALID FOR*02/11/2015 Intertrigo [L30.4] INVALID FOR*02/11/2015 Eczema Dermatitis and Other Eczema, due to Unsp*INVALID FOR*09/28/2016 Diabetes mellitus (HCC) [E11.9] INVALID FOR*01/05/2015 Venous insufficiency [I87.2] INVALID FOR*07/15/2015 Edema [R60.9] INVALID FOR*02/11/2015 Pain in joint, shoulder region [M25.519] INVALID FOR*02/11/2015 Disorders of bursae and tendons in shoulder reg*INVALID FOR*09/28/2016 Diabetes mellitus type 2, controlled [E11.9] INVALID FOR*02/11/2015 DM (diabetes mellitus), type 2 (HCC) [E11.9] INVALID FOR*07/15/2015 Venous insufficiency (chronic) (peripheral) [I8*INVALID FOR*02/20/2018 More... Atrial fibrillation (HCC) [I48.91] INVALID FOR* More... Type 2 diabetes mellitus with diabetic chronic *INVALID FOR*01/06/2016 Lymphedema, not elsewhere classified [I89.0] INVALID FOR*05/17/2017 Type 2 diabetes mellitus with stage 3 chronic k*INVALID FOR* More... Pulmonary nodule [R91.1] INVALID FOR* More... Systolic congestive heart failure (HCC) [I50.20]INVALID FOR* More... Hydronephrosis [N13.30] INVALID FOR* UI (urinary incontinence) [R32] INVALID FOR* Patent ductus arteriosus [Q25.0] INVALID FOR* More... S/P Maze operation for atrial fibrillation [Z98*INVALID FOR* More... CKD (chronic kidney disease) stage 3, GFR 30-59*INVALID FOR* More... Anemia, unspecified [D64.9] INVALID FOR* Hypoxemia requiring supplemental oxygen [R09.02*INVALID FOR*10/19/2017 Hypercalcemia [E83.52] INVALID FOR* Hypervitaminosis D (rule out granulomatous dise*INVALID FOR* Venous stasis ulcers of both lower extremities *INVALID FOR* Depressive disorder [F32.9] INVALID FOR* Lumbar radiculopathy, chronic [M54.16] INVALID FOR* Gait abnormality [R26.9] INVALID FOR* Pyoderma gangrenosum [L88] INVALID FOR*02/21/2018 Anemia due to blood loss [D50.0] INVALID FOR* Calcinosis [E83.59] INVALID FOR* Encounter Status:Closed by MILLICENT BARRIOS CNP on 05/23/18 CBC-COMPLETE BLOOD CNT Collected: 05/14/2018 Status: F Source: [place] NO DIFF 9:38 AM [facility] REPOSITORY TYPE CODE TESTS RESULT OUT OF RANGE REFERENCE UNITS LAB L100.1000 4.4-11.0 K/mm3 Normal WBC 4.6 LAB L100.1200 4.2-5.4 M/mm3 Normal RBC 4.63 LAB L100.1300 12.0-15.0 g/dl Low HGB 11.0 LAB L100.1400 37-47 % Low HCT 36.6 LAB L100.1500 81-99 fL Low MCV 79.0 LAB L100.1600 27.0-32.0 pg Low MCH 23.8 LAB L100.1700 32-36 g/gl Low MCHC 30.1 LAB L100.1810 11.6-14.6 % High RDW CV 20.4 LAB L100.1820 35.1-43.9 fl High RDW SD 58.9 LAB L100.1900 150-450 K/mm3 Normal PLT 164 LAB L100.2000 6.2-12.0 fl Normal MPV 10.2 Performed By: #### L100.0500, L100.4500 #### [facility] [address] [place], [place], [address] DIFFERENTIAL COMMENT Collected: 05/14/2018 Status: F Source: [place] 9:38 AM [facility] REPOSITORY TYPE CODE TESTS RESULT OUT OF RANGE REFERENCE UNITS LAB L100.4500 Normal SMEAR COMMENT COMMENT Result Comment: SLIDE SCANNED - 1+ ANISO. Performed By: #### L100.0500, L100.4500 #### [facility] [address] [place], [address] VITAMIN D,25 HYDROXY Collected: 05/14/2018 Status: F Source: [place] 9:38 AM [facility] REPOSITORY TYPE CODE TESTS RESULT OUT OF RANGE REFERENCE UNITS LAB L506.1000 29.95-100.01 ng/mL Normal Vitamin D 31.2 25-OH Result Comment: Vitamin D 25(OH) Status Range Deficiency <20 ng/mL (50nmol/L) Insuffciency 20 - 30 ng/mL (50 - 75 nmol/L) Sufficiency 30 - 100 ng/mL (75 - 250 nmol/L) Toxicity >100 ng/mL (>250 nmol/L) Performed By: #### L506.1000 #### [facility] [address] [place], [address] RENAL PROFILE Collected: 05/14/2018 Status: F Source: [place] 9:38 AM [facility] REPOSITORY TYPE CODE TESTS RESULT OUT OF RANGE REFERENCE UNITS LAB L501.0100 74-106 mg/dL High GLU 107 Result Comment: Fasting Glucose result from 100 to 125 mg/dL suggests IMPAIRED HOMEOSTASIS per A.D.A. criteria. Please note revised GLUCOSE reference range effective 2017. LAB L501.1000 7-18 mg/dL High BUN 23 LAB L501.1100 0.55-1.02 mg/dL High CREAT,SERUM 1.23 Result Comment: The validity of the calculated GFR AND GFRAA in patients over 70 years has not been determined. Clinical correlation is essential. LAB L501.1110 >60 mL/min Low EST GFR 46 Result Comment: Non- GFR Calc LAB L501.1115 >60 mL/min Low EST GFR - AA 55 Result Comment: GFR Calc LAB L501.1255 ml/min Normal Estimated CRCL 34.70 LAB L501.1300 10-20 RATIO Normal BUN/CRE 18.7 LAB L501.1800 3.2-5. g/dL Low 0 ALB 3.0 LAB L501.2200 8.5-10 mg/dL High .1 CA 10.6 LAB L501.2300 2.5-4. mg/dL Normal 9 PHOS 2.9 LAB L501.5300 136-14 mmol/L Normal 5 NA 142 LAB L501.5600 3.5-5. mmol/L Normal 1 K 3.9 LAB L501.5900 98-107 mmol/L Normal CL 102 LAB L501.6100 21.0-3 mmol/L Normal 2.0 CO2 29.0 Performed By: #### L500.3600, L503.6030, L503.6550 #### [facility] [address] [place], [address] IRON+IRON BINDING Collected: 05/14/2018 Status: F Source: [facility] 9:38 AM [facility] REPOSITORY TYPE CODE TESTS RESULT OUT OF RANGE REFERENCE UNITS LAB L503.6075 250-450 ug/dL TIBC Normal 422 LAB L503.6150 50-170 ug/dL Low IRON 41 LAB L503.6250 15.0-55.0 % Low IRON SATURATION 9.7 Performed By: #### L500.3600, L503.6030, L503.6550 #### [facility] [address] [place], [address] FERRITIN Collected: 05/14/2018 Status: F Source: [place] 9:38 AM [facility] REPOSITORY TYPE CODE TESTS RESULT OUT OF RANGE REFERENCE UNITS LAB L503.6550 8-252 ng/mL Normal FERRITIN 21 Performed By: #### L500.3600, L503.6030, L503.6550 #### [facility] [address] [place], [address] VITAMIN D 1,25-DIHYDROXY Collected: 05/14/2018 Status: F Source: [place] 9:38 AM [facility] REPOSITORY TYPE CODE TESTS RESULT OUT OF RANGE REFERENCE UNITS LAB L3300.0960 19.9-79.3 pg/mL Normal VITD 1,25 68.7 [address]1297 Result Comment: Performed at: - [facility] [address] [id number] Vacation Sales Advisor: Jimmy Patino MD, Phone: [phone] Performed By: #### L3300.0960 #### [facility] (refer to report for specific site) refer to report for address and phone number URINE DRUG SCREEN Collected: 05/01/2018 Status: F Source: [place] (VISTA) 11:11 AM [facility] REPOSITORY Order Comment: Comments: [id number] URINE DRUG SCREEN List of Drugs Taken or Suspected? UNK TYPE CODE TESTS RESULT OUT OF RANGE REFERENCE UNITS LAB L505.0075 TO BE Normal CONFIRMED Result Comment: CONFIRMATORY TESTING FOR ALL POSITIVE URINE DRUG SCREEN RESULTS WILL ONLY BE SENT OUT UPON PHYSICIAN ORDER. VISTA Urine Drug Screen methods provide only preliminary analytical test results. A more specific alternate chemical method must be used in order to obtain a confirmed analytical result. Gas chromatography/mass spectrometery (GC/MS) is the preferred confirmatory method. Clinical consideration and professional judgement should be applied to any drug of abuse test result, particularly when preliminary positive results are used. URINE TCA TESTING MUST BE ORDERED SEPARATELY. USE TEST MNEMONIC: [facility] LAB L505.5005 VISTA UDS PH 5 Normal LAB L505.5015 <1000 ng/mL AMPHETAMINES Normal NEGATIVE LAB L505.5025 < 200 ng/mL BARBITIURATES Normal NEGATIVE LAB L505.5035 < 200 ng/mL BENZODIAZIPINE Normal NEGATIVE LAB L505.5045 < 300 ng/mL COCAINE Normal NEGATIVE LAB L505.5055 < 500 ng/mL ECSTACY Normal NEGATIVE LAB L505.5065 < 300 ng/mL METHADONE Normal NEGATIVE LAB L505.5075 < 300 High ng/mL OPIATES POSITIVE LAB L505.5085 < 25 ng/mL PCP Normal NEGATIVE LAB L505.5095 < 50 ng/mL THC Normal NEGATIVE Performed By: #### L505.5000 #### [facility] [address] [place], [address] MISCELLANEOUS LAB Collected: 05/01/2018 Status: F Source: [place] PROCEDURE 11:11 AM [facility] REPOSITORY Order Comment: Comments: [id number] URINE DRUG SCREEN Test(s) Ordered: [id number] URINE DRUG SCREEN TYPE CODE TESTS RESULT OUT OF RANGE REFERENCE UNITS LAB L801.1541 Normal [facility] LAB TEST Result Comment: [id number] 6+OXYCODONE-BUND (ng/mL) DRUG RESULT SCREEN CUTOFF ____ Amphetamines,Urine Negative ng/mL 1000 Amphetamine test includes Amphetamine and Methamphetamine. Barbiturates Negative ng/mL 200 Benzodiazepines Negative ng/mL 200 Cannabinoid Negative ng/mL 20 Cocaine (Metab) Negative ng/mL 300 Opiates Positive ng/mL 300 Opiates test includes Codeine, Morphine, Hydromorphone, Hydrocodone. Please Note: Confirmation performed by Mass Spectrometry Codeine Negative 300 Morphine Positive Morphine Confirm >3000 ng/mL 300 Hydromorphone Negative 300 Hydrocodone Negative 300 Oxycodone/Oxymorphone,Urine Negative ng/mL 300 Test includes Oxydodone and Oxymorphone. TESTING PERFORMED AT [facility]. ORIGINAL REPORT ON FILE IN LAB CONTAINS ADDITIONAL TEST SITE INFORMATION. Performed By: #### L801.1541 #### [facility] [place], [address] SURGERY VISIT REPORT Observed: 04/14/2018 Status: F Source: [place] 12:17 PM [facility] REPOSITORY [facility] [address] [place] [address] OFFICE VISIT Date of Service: 04/12/18 MR#: [id number] Acct: [id number] Name: DI ZAPATA Rep #: [id number] : 1945 Provider: Huang Alvarado MD Age/Sex: 72/F Location: [facility] Status: Signed Intake Vital Signs04/12/18 Height 5 ft 3 in 04/12/18 Weight: 159 lb 04/12/18 Body Mass Index (BMI) 28.1 Intake Visit Reasons: COLONOSCOPY - STRONG ENOUGH? Chief Complaint: Follow up Census Enumerator Required: No Is patient in pain?: No Allergies amlodipine besylate [From Norvasc] Allergy (Verified 04/12/18 09:46) Unknown ceftriaxone Allergy (Verified 04/12/18 09:46) Rash doxazosin mesylate [From Cardura] Allergy (Verified 04/12/18 09:46) Other doxycycline Allergy (Verified 04/12/18 09:46) Unknown enalapril maleate [From Vasotec] Allergy (Verified 04/12/18 09:46) Rash enalaprilat dihydrate [From Vasotec] Allergy (Verified 04/12/18 09:46) Rash hydroxyzine HCl [From Vistaril] Allergy (Verified 04/12/18 09:46) Rash hydroxyzine pamoate [From Vistaril] Allergy (Verified 04/12/18 09:46) Rash meperidine HCl [From Demerol] Allergy (Verified 04/12/18 09:46) Rash Sulfa (Sulfonamide Antibiotics) Allergy (Verified 04/12/18 09:46) Hives sulfamethoxazole [From Bactrim] Allergy (Verified 04/12/18 09:46) Hives trimethoprim [From Bactrim] Allergy (Verified 04/12/18 09:46) Hives Medications Gabapentin [Neurontin] 100 mg PO TID 09/29/17 [History Confirmed 04/12/18] Fluoxetine [Prozac] 20 mg PO DAILY 09/30/17 [History Confirmed 04/12/18] furosemide 40 mg tablet 20 mg PO DAILY tab 10/11/17 [History Confirmed 04/12/18] Metoprolol Tartrate [Lopressor (beta alok)] 25 mg PO BID 12/12/17 [History Confirmed 04/12/18] Potassium Chloride [K-Tab ER] 10 meq PO QDAY 12/12/17 [History Confirmed 04/12/18] Iron Polysaccharide Complex [Ferrex 150] 150 mg PO DAILYCM #30 cap 12/28/17 [Rx Confirmed 04/12/18] Morphine Sulfate [Morphine Sulfate ER] 15 mg PO DAILY 04/08/18 [History Confirmed 04/12/18] [facility] Medical History Calciphylaxis (Chronic) Ulcer of left lower extremity with fat layer exposed (Chronic) Ulcer of right lower extremity with fat layer exposed (Chronic) Pain in right leg (Chronic) Pain in left leg (Chronic) Delayed wound healing (Chronic) Localized edema (Chronic) Other prepleater (current) drug therapy (Chronic) Abnormal screening CT of chest (Chronic) LYN on CPAP (Chronic) Acute on chronic diastolic (congestive) heart failure (Chronic) Calcinosis (Chronic) Lower GI bleed (Acute) Chronic A. fib on Xarelto (Acute) Recurrent falls (Acute) Generalized weakness (Acute) Weakness (Acute) Anemia (Acute) Edema (Chronic) Pulmonary hypertension (Chronic) Atrial fibrillation (Chronic) Chronic diastolic heart failure (Chronic) Diabetes mellitus (Chronic) Chronic kidney disease (Chronic) Lumbar spinal stenosis (Chronic) PAOD (peripheral arterial occlusive disease) (Chronic) Venous stasis ulcer (Chronic) Depression (Chronic) Neuropathic pain (Chronic) Hypokalemia (Acute) Edema, lower extremity (Chronic) Pulmonary hypertension, secondary (Chronic) Dyspnea on exertion (Acute) Heart failure with 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 (Chronic) Cellulitis (Resolved) 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 (Chronic) Chronic atrial fibrillation (Chronic) Status post placement of implantable loop recorder (Chronic) Other secondary pulmonary hypertension (Chronic) Chronic diastolic (congestive) heart failure (Chronic) GI bleeding (Acute) Symptomatic anemia (Chronic) Hypertension (Chronic) Type 2 diabetes mellitus (Chronic) Lung nodule (Chronic) Coumadin-induced coagulopathy (Resolved) Chronic kidney disease, stage 3 (Chronic) Shortness of breath (Acute) 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) PAD (peripheral artery disease) (Chronic) Venous stasis ulcer of left lower leg with edema of left lower leg (Chronic) Venous stasis ulcer of right lower leg with edema of right lower leg (Chronic) Arthralgia (Chronic) Myalgia (Chronic) Mass of soft tissue of left lower extremity (Chronic) Mass of soft tissue of right lower extremity (Chronic) GERD (gastroesophageal reflux disease) (Acute) Hypersomnia (Acute) LYN (obstructive sleep apnea) (Acute) Surgical History History of cardiac radiofrequency ablation (RFA) (Chronic) History of maze procedure (Chronic) S/P PICC central line placement (Acute) S/P laparoscopic cholecystectomy (Acute) Status post laparoscopic Quin[place] fundoplication (Acute) h/o left foot surgery (Acute) History of loop recorder (Resolved) Family History Mother Diabetes Brother Diabetes Myocardial infarction Cancer multiple melanoma Son Hypertension Daughter Arthritis Diabetes Hypertension Brother Cancer lymphoma Social History Smoking Status: Never smoker alcohol intake: never substance use type: does not use caffeine: Yes Type: coffee, tea what type of physical activity do you participate in: other details: tredmill frequency: daily duration: 15-30 minutes/day seatbelt use: always do you feel safe at home: Yes HPI HPI HPI: DI ZAPATA, is a 72 F who presents to the office today for evaluation for possible colonoscopy I originally saw this patient in the [facility]. She was admitted at that time and found to have a low hemoglobin and an elevated PTT we did not do any colonoscopies on her at that time she was treated for GI bleed and a UTI and sent to the TCU. I saw her back in December she was gradually improving in her activities of daily living. Most recently she has been diagnosed with a urinary tract infection in his been given medications for this. Patient is also been working on wounds on her legs which have been slow to heal. ROS General General: Yes weight change and fatigue; no appetite, colon cancer, breast cancer or weakness HEENT HEENT: Yes difficulty swallowing, eye surgery and eye injury; no swollen glands or hoarseness Endo Endocrine: Yes diabetes mellitus; no thyroid disease, thyroid cancer, Hair loss, heat intolerance or cold intolerance Skin Skin: Yes changing moles; no rash Breast Breast: No left breast lump, right breast lump, nipple discharge, breast pain, abnormal mammogram, abnormal US or breast enlargement Musc Musculoskeletal: Yes back problems, arthritis and rheumatoid arthritis; no gout or joint pain Cardio Cardiovascular: Yes murmur, pacemaker, heart disease, atrial fibrillation and high blood pressure; no heart attack, heart stent, palpitations, shortness of breat with exertion or chest pain Psych Psychiatric: Yes depression; no anxiety or hearing voices Resp Respiratory: Yes shortness of breath, Yes sleep apnea, No cough, No COPD, No asthma, No emphysema, No wheezing Gastro Gastrointestinal: Yes constipation, Yes hemorrhoids, Yes ulcers, Yes gallbladder problem, Yes black,tarry stools, No abdominal pain, No nausea or vomiting, No diarrhea, Yes blood in stool, No acid reflux Celso Hematologic: Yes anemia, Yes bleeding, No blood thinners, No blood disorders, No blood clots Neuro Neurologic: Yes numbness, Yes tingling, No system reviewed and no additional complaints, except as docu, No as per HPI, No abnormal walking, No abnormal hearing, No abnormal movements, No abnormal speech, No behavioral changes, No burning sensations, No confusion, No seizure-like activity, No unsteadiness, No dizziness, No localized weakness, No frequent falls, No headache(s), No lack of coordination, No loss of vision, No memory loss, No other visual disturbances, No radiating pain, No restless legs, No sensory deficit, No fainting, No tremor(s), No weakness, No other Exam Chest Breast Palpation: No nipple discharge Cardio Heart Sounds: murmur GI Other: Abdomen is soft and nontender Assessment AND Plan Problems 1. Lower GI bleed K92.2 Plan Since she is actively being treated for an infection I do not think now is the right time to do a colonoscopy on her. She is gradually improving and I probably like to see her back in another month or 2 to see if it would be appropriate at that time to do colonoscopy then. Coding Level of Care Code Off vis,new,level 2 Diagnoses Lower GI bleed K92.2 04/14/18 1217 <Electronically signed by Huang Alvarado MD> Date Huang Alvarado MD Cosigner Signature: Date (if applicable) CC: Aaron Tidwell MD 12 LEAD ELECTROCARDIOGRAM Observed: 04/10/2018 Status: F Source: [place] 12:48 PM [facility] REPOSITORY [facility] Cardiovascular Services [address] [place] [address] 12 Lead EKG 04/08/18 1309 MR#: [id number] Acct: [id number] Name: DI ZAPATA Rep #: [id number] : 1945 72 From: Epifanio Childers MD Attending Dr: Status: DEP ER Ordering Dr: Esa Roca MD Date: 04/08/18 Location: ED Sex: F C Admitted: Test Reason : SOB Blood Pressure : / mmHG Vent. Rate : 098 BPM Atrial Rate : 141 BPM P-R Int : 000 ms QRS Dur : 082 ms QT Int : 368 ms P-R-T Axes : 000 059 -17 degrees QTc Int : 469 ms Atrial fibrillation Nonspecific ST abnormality Abnormal ECG Confirmed by EPIFANIO CHILDERS MD ([id number]), acquisitions editor CARLENE NELSON ([id number]) on 04/10/2018 12:48:05 PM Referred By: PATRICIA Confirmed By:EPIFANIO CHILDERS MD 04/10/18 1248 Date Epifanio Childers MD CC: Esa Roca MD; Aaron Tidwell MD Signed CARDIOLOGY VISIT Observed: 04/10/2018 Status: F Source: [place] REPORT 10:28 AM [facility] REPOSITORY [facility] [address] [place] [address] OFFICE VISIT Date of Service: 04/10/18 MR#: [id number] Acct: [id number] Name: DI ZAPATA Rep #: [id number] : 1945 Provider: Epifanio Childers MD Age/Sex: 72/F Location: [facility] Status: Signed [facility] Chief Complaint: Follow up Details: DI ZAPATA, is a 72 F who presents to the office today for a follow-up visit. She is a lady with a history of persistent atrial fibrillation hypertension previous GI bleed weakness as well as renal dysfunction. At this particular time her major problem appears to be secondary to lower extremity ulcerations. She denies any chest pain she says that she is mildly short of breath and has had some pedal edema. She has been wrapping her legs. She was recently in the emergency room was evaluated and treated and subsequently discharged. She also says that she is been seeing the heart surgeon who has adjusted her diuretic therapy. She is now on the Lasix 20 mg a day for her dependent edema. Her physical exam today demonstrates fine rales bilaterally irregular rate and rhythm and 1+ pitting edema. Intake Vital Signs04/10/18 Height 5 ft 3 in 04/10/18 Weight: 164 lb 04/10/18 Body Mass Index (BMI) 29.0 04/10/18 Blood Pressure 118/68 04/10/18 Blood Pressure Location Lt brachial Intake Visit Reasons: 6 M Census Enumerator Required: No Accompanied by: none Is patient in pain?: No Allergies amlodipine besylate [From Norvasc] Allergy (Verified 04/08/18 12:38) Unknown ceftriaxone Allergy (Verified 04/08/18 12:38) Rash doxazosin mesylate [From Cardura] Allergy (Verified 04/08/18 12:38) Other doxycycline Allergy (Verified 04/08/18 12:38) Unknown enalapril maleate [From Vasotec] Allergy (Verified 04/08/18 12:38) Rash enalaprilat dihydrate [From Vasotec] Allergy (Verified 04/08/18 12:38) Rash hydroxyzine HCl [From Vistaril] Allergy (Verified 04/08/18 12:38) Rash hydroxyzine pamoate [From Vistaril] Allergy (Verified 04/08/18 12:38) Rash meperidine HCl [From Demerol] Allergy (Verified 04/08/18 12:38) Rash Sulfa (Sulfonamide Antibiotics) Allergy (Verified 04/08/18 12:38) Hives sulfamethoxazole [From Bactrim] Allergy (Verified 04/08/18 12:38) Hives trimethoprim [From Bactrim] Allergy (Verified 04/08/18 12:38) Hives Medications Gabapentin [Neurontin] 100 mg PO TID 09/29/17 [History Confirmed 04/10/18] Fluoxetine [Prozac] 20 mg PO DAILY 09/30/17 [History Confirmed 04/10/18] furosemide 40 mg tablet 20 mg PO DAILY tab 10/11/17 [History Confirmed 04/10/18] Metoprolol Tartrate [Lopressor (beta alok)] 25 mg PO BID 12/12/17 [History Confirmed 04/10/18] Potassium Chloride [K-Tab ER] 10 meq PO QDAY 12/12/17 [History Confirmed 04/10/18] Iron Polysaccharide Complex [Ferrex 150] 150 mg PO DAILYCM #30 cap 12/28/17 [Rx Confirmed 04/10/18] Morphine Sulfate [Morphine Sulfate ER] 15 mg PO DAILY 04/08/18 [History Confirmed 04/10/18] Ejection fraction %: 55 to 59 [facility] Medical History Calciphylaxis (Chronic) Ulcer of left lower extremity with fat layer exposed (Chronic) Ulcer of right lower extremity with fat layer exposed (Chronic) Pain in right leg (Chronic) Pain in left leg (Chronic) Delayed wound healing (Chronic) Localized edema (Chronic) Other intermediate (current) drug therapy (Chronic) Abnormal screening CT of chest (Chronic) LYN on CPAP (Chronic) Acute on chronic diastolic (congestive) heart failure (Chronic) Calcinosis (Chronic) Lower GI bleed (Acute) Chronic A. fib on Xarelto (Acute) Recurrent falls (Acute) Generalized weakness (Acute) Weakness (Acute) Anemia (Acute) Edema (Chronic) Pulmonary hypertension (Chronic) Atrial fibrillation (Chronic) Chronic diastolic heart failure (Chronic) Diabetes mellitus (Chronic) Chronic kidney disease (Chronic) Lumbar spinal stenosis (Chronic) PAOD (peripheral arterial occlusive disease) (Chronic) Venous stasis ulcer (Chronic) Depression (Chronic) Neuropathic pain (Chronic) Hypokalemia (Acute) Edema, lower extremity (Chronic) Pulmonary hypertension, secondary (Chronic) Dyspnea on exertion (Acute) Heart failure with 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 (Chronic) Cellulitis (Resolved) MCFP current use of anticoagulant (Chronic) Chronic atrial fibrillation (Chronic) Status post placement of implantable loop recorder (Chronic) Other secondary pulmonary hypertension (Chronic) Chronic diastolic (congestive) heart failure (Chronic) GI bleeding (Acute) Symptomatic anemia (Chronic) Hypertension (Chronic) Type 2 diabetes mellitus (Chronic) Lung nodule (Chronic) Coumadin-induced coagulopathy (Resolved) Chronic kidney disease, stage 3 (Chronic) Shortness of breath (Acute) 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) PAD (peripheral artery disease) (Chronic) Venous stasis ulcer of left lower leg with edema of left lower leg (Chronic) Venous stasis ulcer of right lower leg with edema of right lower leg (Chronic) Arthralgia (Chronic) Myalgia (Chronic) Mass of soft tissue of left lower extremity (Chronic) Mass of soft tissue of right lower extremity (Chronic) GERD (gastroesophageal reflux disease) (Acute) Hypersomnia (Acute) LYN (obstructive sleep apnea) (Acute) Surgical History History of cardiac radiofrequency ablation (RFA) (Chronic) History of maze procedure (Chronic) History of loop recorder (Resolved) Family History Mother Diabetes Brother Diabetes Myocardial infarction Cancer multiple melanoma Son Hypertension Daughter Arthritis Diabetes Hypertension Brother Cancer lymphoma Social History Smoking Status: Never smoker alcohol intake: never substance use type: does not use caffeine: Yes Type: coffee, tea what type of physical activity do you participate in: other details: tredmill frequency: daily duration: 15-30 minutes/day seatbelt use: always do you feel safe at home: Yes ROS Const Const: Negative for fatigue, weakness, night sweats, excessive sweating, frequent falls, headache(s) or daytime sleepiness Eyes Eyes: Negative for loss of peripheral vision, transient loss of vision, blind spots, double vision or blurry vision ENT ENT: Positive for balance problems (numbness on bottom of both feet); negative for headache(s), dizziness, Nosebleed/epistaxis, tongue swelling or lip swelling Cardio Chest Pain: No Palpitations: No Edema: None Muscle aches with walking: None Resp Respiratory: Positive for SOB with activity; negative for SOB at rest, SOB orthopnea\SOB lying down, Cough or paroxysmal nocturnal dyspnea GI GI: Negative nausea, vomiting, heartburn, black,tarry stools or bright, red blood in stools : Negative for hematuria Musc Musc: Positive for balance problems (numbness on bottom of both feet); negative for muscle aches/ myalgia, muscle weakness or joint pain Skin Skin: Negative non-healing lesions, unusual bruising or rash Neuro Neuro: Negative for weakness, frequent falls, headache(s), double vision, dizziness, lightheadedness, orthostatic symptoms, blurry vision or lack of coordination Celso Hematologic/Lymphatic: Negative for easy bruising or easy bleeding Endo Endo: Negative for fatigue, excessive sweating, cold intolerance, heat intolerance, increased thirst/drinking or hair loss Psych Psych: Negative for anxiety or depression Allergy Allergy/Immunology: Negative for throat swelling, Negative for tongue swelling, Negative for hives, Negative for rash, Negative for lip swelling Cardiology Exam Const Appearance: cooperative, healthy appearing, well developed, well groomed and no acute distress Nutritional Appearance: well nourished and average body habitus Orientation: alert, awake and oriented x3 Head Head: normal to inspection, normocephalic and atraumatic Ears: hearing grossly normal bilaterally and external ears normal Nose: external nose normal, nasal mucous membranes and turbinates normal, nares normal, septum normal, no nasal discharge Face and Sinus: face symmetric Mouth: oral mucosae normal, tongue normal, oropharynx normal and moist mucous membranes Teeth and gingiva: dentition normal Throat: posterior oropharynx normal, tonsils normal and uvula midline Eyes General: appearance normal, both eyes and all related structures Eyelids: eyelids normal Conjunctivae: conjunctivae normal Pupils: PERRL, normal by confrontation and accommodation normal EOM: EOM intact bilaterally Neck Neck: normal visual inspection, trachea midline and no JVD JVD: +5 Carotids: normal carotid upstroke and bounding pulses Chest Auscultation: Bilateral: Diminished Lung Sounds, Rales Cardio Palpation: normal PMI Rate: regular rate Rhythm: irregular rhythm Heart sounds: S1 normal, S2 normal and normal, physiologic split S2; negative rub, gallop or murmur GI GI: normal to inspection, soft, no hepatosplenomegaly and bowel sounds present Neuro General: alert, awake, oriented x3, no focal sensory deficit, gait normal and moves all extremities Skin Skin: no rashes or lesions noted Extremities Pulses: Normal: Right Femoral Pulse, Left Femoral Pulse, Right Dorsalis Pedis Pulse, Left Dorsalis Pedis Pulse, Right Posterior Tibial Pulse, Left Posterior Tibial Pulse, Right Radial Pulse, Left Radial Pulse Lower Extremity Edema: +2: Bilateral Musculoskel Musculoskeletal: No joint tenderness Psych Psychological: normal affect Assessment AND Plan 1. Chronic atrial fibrillation I48.2 Plan She has a history of chronic persistent atrial for ablation status post multiple ablation attempts. These have been unsuccessful in maintaining sinus rhythm. She says that she is being considered for the watchman device therapy. As you know she has not been able to tolerate anticoagulation due to previous GI bleeds. At this particular time she is not particularly keen on this and her rate will be controlled with metoprolol 25 mg twice a day. I like to see her again in a few months and at that time make a further decision. 2. Acute on chronic diastolic (congestive) heart failure I50.33 Plan She does have evidence of diastolic dysfunction her last echocardiogram had demonstrated ejection fraction of 55% with pulmonary artery pressures of 52 mmHg. She is on low-dose Lasix a 20 mg a day. I would ideally like to see her on 40 mg once a day but she is concerned about her kidneys I have asked her to discuss this with the heart surgeon at her next appointment. We will continue to monitor her electrolytes carefully. Thank you for allowing me to participate in the care of your patient. Please don't hesitate to call if any issues arise Plan Detail Follow Up 4 Months (jhr) Coding Level of Care Code Off vis,est,level 4 Diagnoses Chronic atrial fibrillation I48.2 Atrial fibrillation type: chronic Acute on chronic diastolic (congestive) heart failure I50.33 Coding Level of Care Code Off vis,est,level 4 Diagnoses Chronic atrial fibrillation I48.2 Atrial fibrillation type: chronic Acute on chronic diastolic (congestive) heart failure I50.33 04/10/18 1028 <Electronically signed by Epifanio Childers MD> Date Epifanio Childers MD Cosigner Signature: Date (if applicable) CC: Aaron Tidwell MD CNPTOUTREACH Observed: 04/10/2018 Status: COMPLETED Source: [place] 12:00 AM [facility] REPOSITORY Patient Outreach ([facility]) EMMADI ([id number]) 1945 F Date Time Provider Department 04/10/18 AARON TIDWELL [facility] During your visit today, we recorded the following information about you: Allergies As of Date: 04/10/2018 Noted Allergy Reaction BACTRIM (SULFAMETHOXAZOLE-TRIMETH*06/29/2007 2 - Rash CARDURA (DOXAZOSIN) 04/24/2013 16 - Unknown CEFTRIAXONE 08/10/2017 14 - Other: See Comments Comments: Veins turned red DEMEROL (MEPERIDINE (PF)) 04/18/2006 DOXYCYCLINE 04/18/2006 NORVASC (AMLODIPINE BESYLATE) 04/06/2011 7 - Swelling SULFA (SULFONAMIDE ANTIBIOTICS) 07/04/2005 2 - Rash VASOTEC (ENALAPRIL MALEATE) 04/18/2006 3 - Cough VISTARIL (HYDROXYZINE HCL) 04/18/2006 Date Reviewed: 02/20/2018 Reviewed by: Luz Pascual LPN - Fully Assessed Visit Diagnosis:Medication management [Z79.899] Order(s):ALBUMIN/CREAT RATIO RND UR [SQUACR] Order #: [id number] FUTURE LIPID PANEL BASIC [SQLIPB] Order #: [id number] FUTURE Prescriptions as of 04/10/2018 Sig: PANTOPRAZOLE 40 MG TABLET,DEL* Take 1 tablet by mouth twice * POLYSACCHARIDE IRON COMPLEX 1* Take 1 capsule by mouth once * COMPOUNDED PRESCRIPTION Apply 1 application to affect* FLUOXETINE 20 MG CAPSULE Take 1 capsule by mouth once * FUROSEMIDE 20 MG TABLET Take 1 tablet by mouth every * PREDNISONE 10 MG TABLET Take 1 tablet by mouth once d* POTASSIUM CHLORIDE ER 10 MEQ * Take 1 tablet by mouth daily * X METOPROLOL TARTRATE 25 MG TAB* Take 1 tablet by mouth twice * X MORPHINE ER 15 MG TABLET,EXTE* Take 1 tablet by mouth every * GABAPENTIN 100 MG CAPSULE Take 100 mg by mouth four carlos* COMPOUNDED PRESCRIPTION Thigh High Compression Stocki* Problem List As Of Date 04/10/2018 Noted Resolved Hypertension goal BP (blood pressure) < 150/90 *INVALID FOR* More... Rheumatoid arthritis of multiple sites with neg*INVALID FOR* More... 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 Other diseases of lung, not elsewhere classifie*INVALID FOR*02/11/2015 More... SLEEP APNEA NOS [G47.30] INVALID FOR*04/18/2006 Obesity, unspecified [E66.9] INVALID FOR*02/11/2015 Impaired fasting glucose [R73.01] INVALID FOR*02/27/2012 More... 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] INVALID FOR*02/11/2015 Candidal intertrigo [B37.2] INVALID FOR*02/11/2015 Intertrigo [L30.4] INVALID FOR*02/11/2015 Eczema Dermatitis and Other Eczema, due to Unsp*INVALID FOR*09/28/2016 Diabetes mellitus (HCC) [E11.9] INVALID FOR*01/05/2015 Venous insufficiency [I87.2] INVALID FOR*07/15/2015 Edema [R60.9] INVALID FOR*02/11/2015 Pain in joint, shoulder region [M25.519] INVALID FOR*02/11/2015 Disorders of bursae and tendons in shoulder reg*INVALID FOR*09/28/2016 Diabetes mellitus type 2, controlled [E11.9] INVALID FOR*02/11/2015 DM (diabetes mellitus), type 2 (HCC) [E11.9] INVALID FOR*07/15/2015 Venous insufficiency (chronic) (peripheral) [I8*INVALID FOR*02/20/2018 More... Atrial fibrillation (HCC) [I48.91] INVALID FOR* More... Type 2 diabetes mellitus with diabetic chronic *INVALID FOR*01/06/2016 Lymphedema, not elsewhere classified [I89.0] INVALID FOR*05/17/2017 Type 2 diabetes mellitus with stage 3 chronic k*INVALID FOR* More... Pulmonary nodule [R91.1] INVALID FOR* More... Systolic congestive heart failure (HCC) [I50.20]INVALID FOR* More... Hydronephrosis [N13.30] INVALID FOR* UI (urinary incontinence) [R32] INVALID FOR* Patent ductus arteriosus [Q25.0] INVALID FOR* More... S/P Maze operation for atrial fibrillation [Z98*INVALID FOR* More... CKD (chronic kidney disease) stage 3, GFR 30-59*INVALID FOR* More... Anemia, unspecified [D64.9] INVALID FOR* Hypoxemia requiring supplemental oxygen [R09.02*INVALID FOR*10/19/2017 Hypercalcemia [E83.52] INVALID FOR* Hypervitaminosis D (rule out granulomatous dise*INVALID FOR* Venous stasis ulcers of both lower extremities *INVALID FOR* Depressive disorder [F32.9] INVALID FOR* Lumbar radiculopathy, chronic [M54.16] INVALID FOR* Gait abnormality [R26.9] INVALID FOR* Pyoderma gangrenosum [L88] INVALID FOR*02/21/2018 Anemia due to blood loss [D50.0] INVALID FOR* Calcinosis [E83.59] INVALID FOR* Encounter Status:Closed by EPIC, PRODUSER on 07/06/18 CXR FOR LINE PLACEMENT Observed: 04/09/2018 Status: F Source: [place] 10:04 AM [facility] REPOSITORY [facility] Imaging Services [address] [place] [id number] CXR for Line Placement MR#: [id number] Acct: [id number] Name: DI ZAPATA Rep #: [id number] : 1945 F 72 From: Carlos Cai MD PCP: Aaron Tidwell MD Status: REG CLI Study: CXR for Line Placement Date of Exam: 04/09/18 Exam# [id number] Ordering Dr: Mira Almonte DO STUDY: X-RAY CHEST REASON FOR EXAM: Female, 72 years old. PICC line placement. TECHNIQUE: Single AP portable view of the chest. COMPARISON: Comparison is made with prior examination dated April 08, 2018. FINDINGS: A right-sided PICC line catheter has been placed. The tip of the catheter is at the junction of the superior vena cava and right atrium. Stable increased markings in the right infrahilar region. There is no demonstrated pleural abnormality. There is mild cardiac enlargement. RAD/CXR for Line Placement IMPRESSION: The tip of the PICC line catheter is at the junction of the superior vena cava and right atrium. Electronically Signed: Carlos Cai MD at 10:53 EDT Tel [phone], Service support , CC: Mira Almonte DO; Aaron Tidwell MD Oxyacetylene Cutter: Signed EMERGENCY DEPARTMENT Observed: 04/08/2018 Status: F Source: [place] SUMMARY 3:37 PM [facility] REPOSITORY [facility] Medical Records Department [address] [place] [address] Emergency Department Summary 04/08/18 1522 MR#: [id number] Acct: [id number] Name: DI ZAPATA Rep #: [id number] : 1945 72 From: Esa Roca MD PCP: Aaron Tidwell MD Status: REG ER - ER Visit Summary Date of Service: 04/08/18 Chief Complaint: Shortness of breath History of Present Illness: The patient is a 72 F who presents with shortness of breath, dyspnea on exertion. She states she has history of CHF and atrial fibrillation. She states her caponizer Dr. Epifanio Childers. She denies fever, chills night sweats. His weight gain or weight loss. She denies cough, orthopnea or PND. She denies any increased swelling of her lower extremity. There is no history of PE or DVT. She denies chest pain. She states she had palpitations. She denies nausea, vomiting diarrhea. She denies dysuria, frequency, urgency or hematuria. She denies myalgias, arthralgias or back pain. She denies any rash. She does report bruising secondary to Xarelto. Physical Examination: Vital signs are normal. She is not hypoxic. She is not febrile. Head is atraumatic normocephalic. Pupils are equal round reactive. Extraocular muscles are intact. TMs are pearly white with landmarks noted. Nares patent with no drainage. Posterior pharynx without erythema or exudate. Uvula is midline. There is no dysphonia or dysphasia. Trachea is midline. There is no stridor with auscultation of the neck. Heart is irregular with rales at the bases. Abdomen is soft nontender. There is 1+ pitting edema both lower extremities. There is no JVD or hepatojugular reflux. She is alert oriented 3 with a nonfocal neurologic exam. There is no asymmetry, discoloration, leg vein distention or palpable cords. Test Results: EKG revealed a rate of 98. Atrial fibrillation with ossific ST-T wave changes unchanged from prior. CBC reveals mild anemia. Electronic panels unremarkable. Troponin is less than 0.015. Emergency Department Course and Treatment: To evaluate patient's dyspnea chest x-ray was obtained to evaluate for congestive heart failure versus pneumonia versus pneumothorax. EKG to rule out ischemia. CBC was obtained to evaluate for leukocytosis or anemia. Electronic panel to assess for any kidney failure or electrolyte normality and troponin because the dyspnea may represent anginal equivalent. Treatment Plan: Since patient's chest x-ray, EKG and workup other than mild anemia is not significant will discharge to follow-up with Dr. Childers her caponizer if no improvement in the next couple of days. She informed me that she has increased her Lasix to 1 a day. She was taking the Lasix every other day. Disposition: Discharged to home Impression: 1. Dyspnea of unknown etiology 2. History of CHF 3. Chronic A. fib on anticoagulation therapy 4. Bilateral chronic lymphedema 5. Anemia of chronic illness 6. History of type 2 diabetes This note was generated with [employer] dictation software. It may contain incorrect words, spelling, and punctuation that were not noted in review of the chart prior to signing ED Disposition - Plan for ED Patient: Disposition: Home or Assisted Living Chief Complaint: Shortness of Breath Instructions: ED Dyspnea Shortness of Breath Referrals: Aaron Tidwell MD [Primary Care Provider] - As Needed Epifanio Childers MD [STAFF PHYSICIAN] - 3-5 Days if not improving What to do if you have Problems For any increased pain, shortness of breath, bleeding, nausea or vomiting, chest pain, or any unexpected problems, contact your Primary Care Provider. Call [facility] ([phone]) or report to the closest Emergency Room. Call 911 if necessary. 04/08/18 1537 <Electronically signed by Esa Roca MD> Date Esa Roca MD Cosigner Signature (If Indicated): Date CC: Epifanio Childers MD; Aaron Tidwell MD BASIC METABOLIC Collected: 04/08/2018 Status: F Source: [place] PROFILE (BMP) 2:59 PM [facility] REPOSITORY Order Comment: REDRAW. PREVIOUS SPECIMEN REJECTED DUE TO HEMOLYZED. 04/08/18 1447 Erica Sick. 'TROP' Serial specimen #1, #2, #3, or #4: 1 TYPE CODE TESTS RESULT OUT OF RANGE REFERENCE UNITS LAB L501.0100 74-106 mg/dL Normal GLU 102 Result Comment: Fasting Glucose result from 100 to 125 mg/dL suggests IMPAIRED HOMEOSTASIS per A.D.A. criteria. Please note revised GLUCOSE reference range effective 2017. LAB L501.1000 7-18 mg/dL Normal BUN 14 LAB L501.1100 0.55-1.02 mg/dL Normal CREAT,SERUM 0.97 Result Comment: The validity of the calculated GFR AND GFRAA in patients over 70 years has not been determined. Clinical correlation is essential. LAB L501.1110 >60 mL/min Normal EST GFR 60 Result Comment: Non- GFR Calc LAB L501.1115 >60 mL/min Normal EST GFR - AA 72 Result Comment: GFR Calc LAB L501.1255 ml/min Normal Estimated CRCL 44.00 LAB L501.1300 10-20 RATIO Normal BUN/CRE 14.4 LAB L501.2200 8.5-10 mg/dL Normal .1 CA 9.6 LAB L501.5300 136-14 mmol/L Normal 5 NA 141 LAB L501.5600 3.5-5. mmol/L Low 1 K 3.4 LAB L501.5900 98-107 mmol/L Normal CL 103 LAB L501.6100 21.0-3 mmol/L Normal 2.0 CO2 30.0 LAB L501.6200 5-15 Normal GAP 8 Performed By: #### L500.2500, L501.4010 #### [facility] [address] [place], [address] TROPONIN-I Collected: 04/08/2018 Status: F Source: [place] 2:59 PM [facility] REPOSITORY Order Comment: REDRAW. PREVIOUS SPECIMEN REJECTED DUE TO HEMOLYZED. 04/08/18 [facility]. 'TROP' Serial specimen #1, #2, #3, or #4: 1 TYPE CODE TESTS RESULT OUT OF RANGE REFERENCE UNITS LAB L501.4010 <0.045 ng/mL Normal < 0.015 TROPONIN-I Result Comment: TROPONIN-I EXPECTED VALUES <0.045 Negative 0.045 - 0.590 Consistent with Cardiac Damage > OR = 0.600 Critical Value Not every elevated troponin is indicative of AR. These values should be used with clinical judgement in examining the patient's clinical picture for diagnosis. To establish a diagnosis of AR versus myocardial injury, there must be a demonstrated rise and/or fall in the troponin values, in addition to ischemic symptoms, EKG changes, new regional wall motion abnormality, and/or angiographical evidence. PLEASE NOTE: REFERENCE RANGES EDITED 18 Performed By: #### L500.2500, L501.4010 #### [facility] [address] [place], [place], [address] CBC W/DIFF, AUTOMATED Collected: 04/08/2018 Status: F Source: [place] 1:39 PM [facility] REPOSITORY TYPE CODE TESTS RESULT OUT OF RANGE REFERENCE UNITS LAB L100.1000 4.4-11.0 K/mm3 Normal WBC 5.6 LAB L100.1200 4.2-5.4 M/mm3 Normal RBC 4.74 LAB L100.1300 12.0-15.0 g/dl Low HGB 10.8 LAB L100.1400 37-47 % Low HCT 36.6 LAB L100.1500 81-99 fL Low MCV 77.2 LAB L100.1600 27.0-32.0 pg Low MCH 22.8 LAB L100.1700 32-36 g/gl Low MCHC 29.5 LAB L100.1810 11.6-14.6 % High RDW CV 17.9 LAB L100.1820 35.1-43.9 fl High RDW SD 50.7 LAB L100.1900 150-450 K/mm3 Normal PLT 175 LAB L100.2000 6.2-12.0 fl Normal MPV 10.1 LAB L100.2100 47-70 % Normal NEUT% 66.6 LAB L100.2200 19-41 % Normal LY% 20.7 LAB L100.2300 0-10 % High MONO% 12.1 LAB L100.2400 0-5 % Normal EO% 0.4 LAB L100.2500 0-1 % Normal BASO% 0.2 LAB L100.2550 0.0-0.9 % Normal IM GRAN % 0.000 Result Comment: IG% - Immature Granulocytes (promyelocytes, myelocytes and metamyelocytes) > 1% indicates that a LEFT SHIFT is Present. LAB L100.2620 2.0-7.7 X10 3/uL Normal Absolute Neut 3.7 LAB L100.2720 0.83-4.51 X10 3/ul Normal Absolute Lymph 1.15 Performed By: #### L100.0100 #### [facility] [address] [place], [address] BNP,B-TYPE NATRIURETIC Collected: 04/08/2018 Status: F Source: [place] PEPTIDE 1:39 PM [facility] REPOSITORY TYPE CODE TESTS RESULT OUT OF RANGE REFERENCE UNITS LAB L503.6620 0-100 pg/mL High B-TYPE 270.3 ESTIVEN PEP Performed By: #### L503.6620 #### [facility] [address] [place], [address] CHEST PA AND LATERAL Observed: 04/08/2018 Status: F Source: [place] 12:52 PM [facility] REPOSITORY [facility] Imaging Services [address] [place] [address] Chest PA and Lateral MR#: [id number] Acct: [id number] Name: DI ZAPATA Rep #: [id number] : 1945 F 72 From: Emory Alvares MD PCP: Aaron Tidwell MD Status: REG ER Study: Chest PA and Lateral Date of Exam: 04/08/18 Exam# [id number] Ordering Dr: Esa Roca MD STUDY: X-RAY CHEST REASON FOR EXAM: Female, 72 years old. Shortness of breath. TECHNIQUE: Frontal and lateral views of the chest. COMPARISON: December 08, 2017 FINDINGS: The right PICC catheter has been removed since the prior study. There is stable hyperexpansion with a mild interstitial pattern. There is no demonstrated pleural abnormality. There is cardiomegaly unchanged. Normal mediastinum and kenn. Normal visualized pulmonary arteries. Aortic tortuosity with calcification is stable. Normal visualized thoracic spine. Normal visualized ribs, clavicles, and shoulders. An electronic device is projected over the left upper quadrant of the abdomen and relatively unchanged. There are cholecystectomy clips. RAD/Chest PA and Lateral IMPRESSION: Cardiomegaly with hyperexpansion and mild diffuse interstitial pattern unchanged. No new or acute pathology. Electronically Signed: Emory Alvares MD at 14:22 EDT , Service support , CC: Esa Roca MD; Aaron Tidwell MD Oxyacetylene Cutter: Signed RENAL PROFILE Collected: 03/26/2018 Status: F Source: [place] 9:23 AM [facility] REPOSITORY TYPE CODE TESTS RESULT OUT OF RANGE REFERENCE UNITS LAB L501.0100 74-106 mg/dL High GLU 138 Result Comment: Fasting Glucose result greater than or equal to 126 mg/dL suggests DIABETES MELLITUS per A.D.A. criteria. Please note revised GLUCOSE reference range effective 2017. LAB L501.1000 7-18 mg/dL Normal BUN 17 LAB L501.1100 0.55-1.02 mg/dL High CREAT,SERUM 1.26 Result Comment: The validity of the calculated GFR AND GFRAA in patients over 70 years has not been determined. Clinical correlation is essential. LAB L501.1110 >60 mL/min Low EST GFR 44 Result Comment: Non- GFR Calc LAB L501.1115 >60 mL/min Low EST GFR - AA 54 Result Comment: GFR Calc LAB L501.1300 10-20 RATIO Normal BUN/CRE 13.5 LAB L501.1800 3.2-5.0 g/dL Low ALB 3.0 LAB L501.2200 8.5-10.1 mg/dL CA Normal 9.1 LAB L501.2300 2.5-4.9 mg/dL Normal PHOS 3.2 LAB L501.5300 136-145 mmol/L NA Normal 141 LAB L501.5600 3.5-5.1 mmol/L K Normal 3.7 LAB L501.5900 98-107 mmol/L CL Normal 105 LAB L501.6100 21.0-32.0 mmol/L Normal CO2 29.0 Performed By: #### L500.3600 #### [facility] [address] [place], [address] DOWNTIME REPORT Observed: 03/15/2018 Status: F Source: [place] 11:53 AM [facility] REPOSITORY [facility] Medical Records Department [address] [place] [address] Downtime Report MR#: [id number] Acct: [id number] Name: DI ZAPATA Rep #: [id number] : 1945 72 From: Hunter Nelson PCP: Aaron Tidwell MD Status: REG RCR This patient was seen during an EMR downtime February 26, 2018 - March 05, 2018. This patient may have a combination of paper and electronic documentation or all paper documentation. All documentation is viewable within the e-chart portion of [employer] for each patient visit. RENAL PROFILE Collected: 02/22/2018 Status: F Source: [place] 11:03 AM [facility] REPOSITORY TYPE CODE TESTS RESULT OUT OF RANGE REFERENCE UNITS LAB L501.0100 74-106 mg/dL High GLU 137 Result Comment: Fasting Glucose result greater than or equal to 126 mg/dL suggests DIABETES MELLITUS per A.D.A. criteria. Please note revised GLUCOSE reference range effective 2017. LAB L501.1000 7-18 mg/dL High BUN 20 LAB L501.1100 0.55-1.02 mg/dL High CREAT,SERUM 1.08 Result Comment: The validity of the calculated GFR AND GFRAA in patients over 70 years has not been determined. Clinical correlation is essential. LAB L501.1110 >60 mL/min Low EST GFR 53 Result Comment: Non- GFR Calc LAB L501.1115 >60 mL/min Normal EST GFR - AA 64 Result Comment: GFR Calc LAB L501.1300 10-20 RATIO Normal BUN/CRE 18.5 LAB L501.1800 3.2-5.0 g/dL Low ALB 2.9 LAB L501.2200 8.5-10.1 mg/dL CA Normal 8.6 LAB L501.2300 2.5-4.9 mg/dL Normal PHOS 3.1 LAB L501.5300 136-145 mmol/L NA Normal 139 LAB L501.5600 3.5-5.1 mmol/L K Normal 4.1 LAB L501.5900 98-107 mmol/L CL Normal 104 LAB L501.6100 21.0-32.0 mmol/L Normal CO2 29.0 Performed By: #### L500.3600 #### [facility] [address] [place], [address] HEMOGLOBIN A1C Collected: 02/20/2018 Status: F Source: [place] 10:55 AM [facility] REPOSITORY TYPE CODE TESTS RESULT OUT OF REFERENCE UNITS RANGE LAB HGBA1C 4.3-5.6 % High Hemoglobin A1c 6.0 LAB HBA0 mg/dL Est. Average Glucose 126 Result Comment: eAG: (Estimated average glucose) is a calculated value from HgbA1c and is access service representative of the average blood glucose level in the last 2-3 month period. Performed By: #### HBA1C, IRON #### [facility] [address] [place], [place] [address] IRON AND TIBC Collected: 02/20/2018 Status: F Source: [place] 10:55 AM [facility] REPOSITORY TYPE CODE TESTS RESULT OUT OF REFERENCE UNITS RANGE LAB IRN 41-186 ug/dL Low Iron 21 LAB TIBC 232-386 ug/dL TIBC 376 LAB SAT 15-57 % Low Transferrin Saturatn 6 Performed By: #### HBA1C, IRON #### [facility] [address] [place], [place] [address] PROGRESS Observed: 02/20/2018 Status: COMPLETED Source: [place] 9:54 AM [facility] REPOSITORY HNO ID: [id number] Author: Aaron Tidwell Service: (none) Author Type: Physician Type: Progress Notes Filed: 02/21/2018 2:30 PM Note Text: This note was created using [employer]. Subjective Di Zapata is a 72 year old female was here for follow up. She had no further GI bleeding. She continued to be off Xarelto and Celebrex. She was scheduled for a colonoscopy by Dr. Alvarado in April. She wondered if she still needed Ferrex and pantoprazole. Her congestive heart failure was stable, and monitored by Dr. Childers. Her diabetes mellitus was controlled off medications. Her depression was controlled on fluoxetine. Her venous stasis ulcers were improving slowly. Prednisone helped with the pain from the ulcers. She was being weaned off prednisone. She also had skin grafts done last week. Dr. 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 Her biopsy site was till not healed, and she was scheduled to follow p with Dr. Morales. Review of Systems Respiratory: Negative. Cardiovascular: Negative. Negative for chest pain. Gastrointestinal: Negative. Musculoskeletal: Positive for arthralgias, back pain and gait problem. Neurological: Positive for weakness. 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 Collagen Hydrogen FLUoxetine (PROZAC) 20 mg capsule Take 1 capsule by mouth once daily. furosemide (LASIX) 20 mg tablet Take 1 tablet by mouth every other day. predniSONE (DELTASONE) 10 mg tablet Take 1 tablet by mouth once daily. metoprolol tartrate, short acting, (LOPRESSOR) 25 mg tablet Take 1 tablet by mouth twice daily. potassium chloride (KLOR-CON 10) 10 mEq tablet Take 1 tablet by mouth daily with breakfast. morphine SR (MS CONTIN, ORAMORPH SR) 15 mg 12 hr tablet Take 1 tablet by mouth every 12 hours. gabapentin (NEURONTIN) 100 mg capsule Take 100 mg by mouth four times daily. Per Dr. Carbajal pantoprazole DR (PROTONIX) 40 mg tablet Take 1 tablet by mouth twice daily. Take on empty stomach, 1/2 hr before meal. iron polysaccharide complex (FERREX 150) 150 mg iron capsule Take 1 capsule by mouth once daily. SANTYL ointment Apply 1 application to affected area once daily. 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 Objective BP 114/62 (BP Site: Left Arm, BP Position: Sitting, BP Cuff Size: Regular Adult) Pulse 88 Temp 36.7 ?C (98.1 ?F) (Left Tympanic) Resp 20 Wt 76.7 kg (169 lb) BMI 29.47 kg/m? Physical Exam Constitutional: No distress. Cardiovascular: S1 normal and S2 normal. An irregular rhythm present. Exam reveals no gallop. No murmur heard. Pulmonary/Chest: Breath sounds normal. She has no wheezes. She has no rales. Abdominal: Soft. She exhibits no distension. Musculoskeletal: She exhibits edema. Legs in compression dressing bilaterally. Neurological: She is alert. Ambulatory with walker. Psychiatric: She has a normal mood and affect. Assessment and Plan 1. Depressive disorder - ICD9: 311, ICD10: F32.9 (primary diagnosis) Controlled. - FLUOXETINE 20 MG CAPSULE 2. Chronic systolic congestive heart failure (HCC) - ICD9: 428.22, 428.0, ICD10: I50.22 Reviewed. - FUROSEMIDE 20 MG TABLET 3. Chronic atrial fibrillation (HCC) - ICD9: 427.31, ICD10: I48.2 Controlled. 4. Hypercalcemia - ICD9: 275.42, ICD10: E83.52 Per nephrology. 5. 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 6. Anemia due to blood loss - ICD9: 280.0, ICD10: D50.0 - Recheck iron levels to determine need for iron supplementation. - IRON + TIBC 7. Type 2 diabetes mellitus with stage 3 chronic kidney disease, without long-term current use of insulin (HCC) - ICD9: 250.40, 585.3, ICD10: E11.22, N18.3 Stable. - Diet controlled. - HGB A1C Aaron Tidwell MD CNOV Observed: 02/20/2018 Status: COMPLETED Source: [place] 9:20 AM [facility] REPOSITORY Office Visit (INTMWS) DI ZAPATA ([id number]) 1945 F Date Time Provider Department 02/20/18 9:20 AM AARON TIDWELL INTMWS During your visit today, we recorded the following information about you: Temperature Pulse Respiration Blood pressure 98.1 degrees 88/minute 20/minute 114/62 Weight 76.7 kg Aaron Tidwell MD 02/21/2018 2:30 PM Signed This note was created using [employer]. Subjective Di Zapata is a 72 year old female was here for follow up. She had no further GI bleeding. She continued to be off Xarelto and Celebrex. She was scheduled for a colonoscopy by Dr. Alvarado in April. She wondered if she still needed Ferrex and pantoprazole. Her congestive heart failure was stable, and monitored by Dr. Childers. Her diabetes mellitus was controlled off medications. Her depression was controlled on fluoxetine. Her venous stasis ulcers were improving slowly. Prednisone helped with the pain from the ulcers. She was being weaned off prednisone. She also had skin grafts done last week. Dr. 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 Her biopsy site was till not healed, and she was scheduled to follow p with Dr. Morales. Review of Systems Respiratory: Negative. Cardiovascular: Negative. Negative for chest pain. Gastrointestinal: Negative. Musculoskeletal: Positive for arthralgias, back pain and gait problem. Neurological: Positive for weakness. 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 Collagen Hydrogen FLUoxetine (PROZAC) 20 mg capsule Take 1 capsule by mouth once daily. furosemide (LASIX) 20 mg tablet Take 1 tablet by mouth every other day. predniSONE (DELTASONE) 10 mg tablet Take 1 tablet by mouth once daily. metoprolol tartrate, short acting, (LOPRESSOR) 25 mg tablet Take 1 tablet by mouth twice daily. potassium chloride (KLOR-CON 10) 10 mEq tablet Take 1 tablet by mouth daily with breakfast. morphine SR (MS CONTIN, ORAMORPH SR) 15 mg 12 hr tablet Take 1 tablet by mouth every 12 hours. gabapentin (NEURONTIN) 100 mg capsule Take 100 mg by mouth four times daily. Per Dr. Carbajal pantoprazole (PROTONIX) 40 mg tablet Take 1 tablet by mouth twice daily. Take on empty stomach, 1/2 hr before meal. iron polysaccharide complex (FERREX 150) 150 mg iron capsule Take 1 capsule by mouth once daily. SANTYL ointment Apply 1 application to affected area once daily. COMPOUNDED PRESCRIPTION Thigh High Compression Stockings 30- 40 mm DX: Jose Guadalupeemdema- I89.0 (Patient not taking: Reported on 02/20/2018 ) No current facility-administered medications for this visit. Objective BP 114/62 (BP Site: Left Arm, BP Position: Sitting, BP Cuff Size: Regular Adult) Pulse 88 Temp 36.7 ?C (98.1 ?F) (Left Tympanic) Resp 20 Wt 76.7 kg (169 lb) BMI 29.47 kg/m? Physical Exam Constitutional: No distress. Cardiovascular: S1 normal and S2 normal. An irregular rhythm present. Exam reveals no gallop. No murmur heard. Pulmonary/Chest: Breath sounds normal. She has no wheezes. She has no rales. Abdominal: Soft. She exhibits no distension. Musculoskeletal: She exhibits edema. Legs in compression dressing bilaterally. Neurological: She is alert. Ambulatory with walker. Psychiatric: She has a normal mood and affect. Assessment and Plan 1. Depressive disorder - ICD9: 311, ICD10: F32.9 (primary diagnosis) Controlled. - FLUOXETINE 20 MG CAPSULE 2. Chronic systolic congestive heart failure (HCC) - ICD9: 428.22, 428.0, ICD10: I50.22 Reviewed. - FUROSEMIDE 20 MG TABLET 3. Chronic atrial fibrillation (HCC) - ICD9: 427.31, ICD10: I48.2 Controlled. 4. Hypercalcemia - ICD9: 275.42, ICD10: E83.52 Per nephrology. 5. 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 6. Anemia due to blood loss - ICD9: 280.0, ICD10: D50.0 - Recheck iron levels to determine need for iron supplementation. - IRON + TIBC 7. Type 2 diabetes mellitus with stage 3 chronic kidney disease, without long-term current use of insulin (HCC) - ICD9: 250.40, 585.3, ICD10: E11.22, N18.3 Stable. - Diet controlled. - HGB A1C Aaron Tidwell MD Referring Provider: AARON TIDWELL [[id number]] Allergies As of Date: 02/20/2018 Noted Allergy Reaction BACTRIM (SULFAMETHOXAZOLE-TRIMETH*06/29/2007 2 - Rash CARDURA (DOXAZOSIN) 04/24/2013 16 - Unknown CEFTRIAXONE 08/10/2017 14 - Other: See Comments Comments: Veins turned red DEMEROL (MEPERIDINE (PF)) 04/18/2006 DOXYCYCLINE 04/18/2006 NORVASC (AMLODIPINE BESYLATE) 04/06/2011 7 - Swelling SULFA (SULFONAMIDE ANTIBIOTICS) 07/04/2005 2 - Rash VASOTEC (ENALAPRIL MALEATE) 04/18/2006 3 - Cough VISTARIL (HYDROXYZINE HCL) 04/18/2006 Date Reviewed: 02/20/2018 Reviewed by: Luz Pascual LPN - Fully Assessed Reason for Visit: F/U 3 Month [443] Primary Visit Diagnosis:Depressive disorder [F32.9] Other Visit Diagnoses:Chronic systolic congestive heart failure (HCC) [I50.22] Chronic atrial fibrillation (HCC) [I48.2] Hypercalcemia [E83.52] 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) [E67.3] Anemia due to blood loss [D50.0] Type 2 diabetes mellitus with stage 3 chronic kidney disease, without long-term current use of insulin (HCC) [E11.22, N18.3] Order(s):FLUoxetine (PROZAC) 20 mg capsuleTake 1 capsule by mouth once daily.Disp: 30 capsuleRfl: 5 IRON + TIBC [SQIRON] Order #: [id number] FUTURE HGB A1C [HHYCG6B] Order #: [id number] FUTURE Prescriptions as of 02/20/2018 Sig: COMPOUNDED PRESCRIPTION Apply 1 application to affect* FLUOXETINE 20 MG CAPSULE Take 1 capsule by mouth once * FUROSEMIDE 20 MG TABLET Take 1 tablet by mouth every * PREDNISONE 10 MG TABLET Take 1 tablet by mouth once d* METOPROLOL TARTRATE 25 MG TAB* Take 1 tablet by mouth twice * POTASSIUM CHLORIDE ER 10 MEQ * Take 1 tablet by mouth daily * MORPHINE ER 15 MG TABLET,EXTE* Take 1 tablet by mouth every * GABAPENTIN 100 MG CAPSULE Take 100 mg by mouth four carlos* PANTOPRAZOLE 40 MG TABLET,DEL* Take 1 tablet by mouth twice * POLYSACCHARIDE IRON COMPLEX 1* Take 1 capsule by mouth once * SANTYL 250 UNIT/GRAM TOPICAL * Apply 1 application to affect* COMPOUNDED PRESCRIPTION Thigh High Compression Stocki* Patient not taking: Reported on 02/20/2018 Medication notes this encounter POLYSACCHARIDE IRON COMPLEX 150 MG IRON CAPSULE >> Luz Bargerer BEE FARMER 02/20/2018 9:23 AM >> LUZ PASCUAL E BEE FARMER MonFebruary 20, 2018 9:23 AM Patient ran out of med SANTYL 250 UNIT/GRAM TOPICAL OINTMENT >> Luz E Ankur BEE FARMER 02/20/2018 9:27 AM >> ANKUR LUZ E BEE FARMER MonFebruary 20, 2018 9:27 AM To expensive Problem List As Of Date 02/20/2018 Noted Resolved Hypertension goal BP (blood pressure) < 150/90 *INVALID FOR* More... Rheumatoid arthritis of multiple sites with neg*INVALID FOR* More... 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 Other diseases of lung, not elsewhere classifie*INVALID FOR*02/11/2015 More... SLEEP APNEA NOS [G47.30] INVALID FOR*04/18/2006 Obesity, unspecified [E66.9] INVALID FOR*02/11/2015 Impaired fasting glucose [R73.01] INVALID FOR*02/27/2012 More... 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] INVALID FOR*02/11/2015 Candidal intertrigo [B37.2] INVALID FOR*02/11/2015 Intertrigo [L30.4] INVALID FOR*02/11/2015 Eczema Dermatitis and Other Eczema, due to Unsp*INVALID FOR*09/28/2016 Diabetes mellitus (HCC) [E11.9] INVALID FOR*01/05/2015 Venous insufficiency [I87.2] INVALID FOR*07/15/2015 Edema [R60.9] INVALID FOR*02/11/2015 Pain in joint, shoulder region [M25.519] INVALID FOR*02/11/2015 Disorders of bursae and tendons in shoulder reg*INVALID FOR*09/28/2016 Diabetes mellitus type 2, controlled [E11.9] INVALID FOR*02/11/2015 DM (diabetes mellitus), type 2 (HCC) [E11.9] INVALID FOR*07/15/2015 Venous insufficiency (chronic) (peripheral) [I8*INVALID FOR*02/20/2018 More... Atrial fibrillation (HCC) [I48.91] INVALID FOR* More... Type 2 diabetes mellitus with diabetic chronic *INVALID FOR*01/06/2016 Lymphedema, not elsewhere classified [I89.0] INVALID FOR*05/17/2017 Type 2 diabetes mellitus with stage 3 chronic k*INVALID FOR* More... Pulmonary nodule [R91.1] INVALID FOR* More... Systolic congestive heart failure (HCC) [I50.20]INVALID FOR* More... Hydronephrosis [N13.30] INVALID FOR* UI (urinary incontinence) [R32] INVALID FOR* Patent ductus arteriosus [Q25.0] INVALID FOR* More... S/P Maze operation for atrial fibrillation [Z98*INVALID FOR* More... CKD (chronic kidney disease) stage 3, GFR 30-59*INVALID FOR* More... Anemia, unspecified [D64.9] INVALID FOR* Hypoxemia requiring supplemental oxygen [R09.02*INVALID FOR*10/19/2017 Hypercalcemia [E83.52] INVALID FOR* Hypervitaminosis D (rule out granulomatous dise*INVALID FOR* Venous stasis ulcers of both lower extremities *INVALID FOR* Depressive disorder [F32.9] INVALID FOR* Lumbar radiculopathy, chronic [M54.16] INVALID FOR* Gait abnormality [R26.9] INVALID FOR* Pyoderma gangrenosum [L88] INVALID FOR* Anemia due to blood loss [D50.0] INVALID FOR* Prescriptions ordered this encounter Disp Refills Start End FLUOXETINE 20 MG CAPSULE 30 c* 5 02/20/2018 Route: ORAL Sig: Take 1 capsule by mouth once daily. Medications Discontinued During This Encounter FLUoxetine (PROZAC) 20 mg capsule 30 c* 2 11/22/2017 02/20/2018 Route: ORAL Sig: Take 1 capsule by mouth once daily. Disc: Reason for discontinue is not on file. furosemide (LASIX) 20 mg tablet 08/23/2017 02/20/2018 Class: Med Update Route: ORAL Sig: Take 1 tablet by mouth every other day. Patient taking differently: Take 20 mg by mouth once daily. Disc: Reason for discontinue is not on file. Disposition: Return in about 5 months (around 07/23/2018). Follow-up and Disposition History Recorded Encounter Status:Closed by AARON TIDWELL MD on 02/21/18 VITAMIN D 1,25-DIHYDROXY Collected: 02/01/2018 Status: F Source: [place] 2:43 PM [facility] REPOSITORY Order Comment: DR ALMONTE WANTS TO ADD A VITD 1,25 DIHYDROXY TYPE CODE TESTS RESULT OUT OF RANGE REFERENCE UNITS LAB L3300.0960 19.9-79.3 pg/mL Normal VITD 1,25 37.3 03774 Result Comment: Performed at: - [facility] [id number] Vacation Sales Advisor: Jimmy Patino MD, Phone: [phone] Performed By: #### L3300.0960 #### [facility] (refer to report for specific site) refer to report for address and phone number RENAL PROFILE Collected: 01/31/2018 Status: F Source: [place] 2:43 PM [facility] REPOSITORY TYPE CODE TESTS RESULT OUT OF RANGE REFERENCE UNITS LAB L501.0100 74-106 mg/dL High GLU 135 Result Comment: Fasting Glucose result greater than or equal to 126 mg/dL suggests DIABETES MELLITUS per A.D.A. criteria. Please note revised GLUCOSE reference range effective 2017. LAB L501.1000 7-18 mg/dL High BUN 23 LAB L501.1100 0.55-1.02 mg/dL High CREAT,SERUM 1.13 Result Comment: The validity of the calculated GFR AND GFRAA in patients over 70 years has not been determined. Clinical correlation is essential. LAB L501.1110 >60 mL/min Low EST GFR 50 Result Comment: Non- GFR Calc LAB L501.1115 >60 mL/min Normal EST GFR - AA 61 Result Comment: GFR Calc LAB L501.1300 10-20 RATIO High BUN/CRE 20.4 LAB L501.1800 3.2-5.0 g/dL Low ALB 2.7 LAB L501.2200 8.5-10.1 mg/dL CA Normal 8.7 LAB L501.2300 2.5-4.9 mg/dL Normal PHOS 2.5 LAB L501.5300 136-145 mmol/L NA Normal 141 LAB L501.5600 3.5-5.1 mmol/L K Normal 5.0 LAB L501.5900 98-107 mmol/L CL Normal 105 LAB L501.6100 21.0-32.0 mmol/L Normal CO2 29.0 Performed By: #### L500.3600 #### [facility] [address] [place], [place], [address] VITAMIN D,25 HYDROXY Collected: 01/31/2018 Status: F Source: [place] 2:43 PM [facility] REPOSITORY TYPE CODE TESTS RESULT OUT OF REFERENCE UNITS RANGE LAB L506.1000 29.95-100.01 ng/mL Low Vitamin D 27.6 25-OH Result Comment: Vitamin D 25(OH) Status Range Deficiency <20 ng/mL (50nmol/L) Insuffciency 20 - 30 ng/mL (50 - 75 nmol/L) Sufficiency 30 - 100 ng/mL (75 - 250 nmol/L) Toxicity >100 ng/mL (>250 nmol/L) Performed By: #### L506.1000 #### [facility] [address] [place], [address] CBC AND DIFFERENTIAL Collected: 01/24/2018 Status: F Source: [place] 1:30 PM [facility] REPOSITORY TYPE CODE TESTS RESULT OUT OF REFERENCE UNITS RANGE LAB WBC 3.70-11.00 k/uL WBC High 11.69 LAB RBC 3.90-5.20 m/uL RBC 4.23 LAB HGB 11.5-15.5 g/dL Low Hemoglobin 9.9 LAB HCT 36.0-46.0 % Low Hematocrit 34.6 LAB MCV 80.0-100.0 fL MCV 81.8 LAB MCH 26.0-34.0 pG Low MCH 23.4 LAB MCHC 30.5-36.0 g/dL Low MCHC 28.6 LAB RDWCV 11.5-15.0 % RDW-CV High 21.2 LAB PLTCT 150-400 k/uL Platelet Count 313 LAB MPV 9.0-12.7 fL MPV 10.6 LAB ANEUT % Neut% 85.7 LAB AANEUT 1.45-7.50 k/uL Abs Neut High 10.02 LAB ALYMP % Lymph% 7.6 LAB AALYMP 1.00-4.00 k/uL Low Abs Lymph 0.89 LAB AMONO % [place]% 5.9 LAB AAMONO <0.87 k/uL Abs [place] 0.69 LAB AEOS % Eosin% 0.5 LAB AAEOS <0.46 k/uL Abs Eosin 0.06 LAB ABASO % Baso% 0.3 LAB AABASO <0.11 k/uL Abs Baso 0.03 LAB AUNRBC 0 /100 WBC NRBCs 0.0 LAB ABNRBC <0.01 k/uL Absolute nRBC <0.01 LAB DTYP DTYPE Auto Diff Performed By: #### CBCDIF #### [facility] [address] [place], [place] [address] CNPN Observed: 01/16/2018 Status: COMPLETED Source: [place] 12:00 AM [facility] REPOSITORY [facility] DI ZAPATA ([id number]) 1945 F Date Time Provider Department 01/16/18 AARON TIDWELL During your visit today, we recorded the following information about you: Bonnie Drake LPN 01/16/2018 3:06 PM Signed Pt calls to report she saw Dr. Morales today for ulcers on leg. Dr. Morales advised pt she had calcium build up in body and that is why ulcers will not heal. Pt sees [facility] for ulcers. Pt reports she needs an appt with provider to get calcium under control. Appt scheduled. Bonnie Tidwell MD 01/16/2018 3:54 PM Signed I spoke to Dr. Morales. Patient with calciphylaxis. No additional recommendations from a dermatologic standpoint. 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 I recommend she see her heart surgeon, Dr. Srinath Almonte to discuss treatment options. Continue wound care and pain management. Millicent Barrios APRN.GRADUATE ADVISOR 01/18/2018 7:41 AM Signed Please call patient and let her know Dr. Tidwell spoke with Dr. Morales. He wants patient to follow-up with her heart surgeon for the calcium issues because it is due to her chronic kidney disease. I will not be able to treat for this, does she still want an appointment with me today? Millicent Barrios, TAMEKA.KRISTEN Powell [facility] 01/18/2018 7:47 AM Signed Left message for patient to call office back and to ask to speak with a nurse. Veronique Burgos LPN 01/18/2018 8:14 AM Signed Patient called in and information listed below given. She has cancelled and will call Dr. Almonte. Katie Burgos LPN Allergies As of Date: 01/16/2018 Noted Allergy Reaction BACTRIM (SULFAMETHOXAZOLE-TRIMETH*06/29/2007 2 - Rash CARDURA (DOXAZOSIN) 04/24/2013 16 - Unknown CEFTRIAXONE 08/10/2017 14 - Other: See Comments Comments: Veins turned red DEMEROL (MEPERIDINE (PF)) 04/18/2006 DOXYCYCLINE 04/18/2006 NORVASC (AMLODIPINE BESYLATE) 04/06/2011 7 - Swelling SULFA (SULFONAMIDE ANTIBIOTICS) 07/04/2005 2 - Rash VASOTEC (ENALAPRIL MALEATE) 04/18/2006 3 - Cough VISTARIL (HYDROXYZINE HCL) 04/18/2006 Date Reviewed: 01/09/2018 Reviewed by: Veronique Powell [facility] - Fully Assessed Reason for Visit: Appointment [186] Prescriptions as of 01/16/2018 Sig: PREDNISONE 10 MG TABLET Take 1 tablet by mouth once d* METOPROLOL TARTRATE 25 MG TAB* Take 1 tablet by mouth twice * PANTOPRAZOLE 40 MG TABLET,DEL* Take 1 tablet by mouth twice * POTASSIUM CHLORIDE ER 10 MEQ * Take 1 tablet by mouth daily * POLYSACCHARIDE IRON COMPLEX 1* Take 1 capsule by mouth once * FLUOXETINE 20 MG CAPSULE Take 1 capsule by mouth once * SANTYL 250 UNIT/GRAM TOPICAL * Apply 1 application to affect* MORPHINE ER 15 MG TABLET,EXTE* Take 1 tablet by mouth every * GABAPENTIN 100 MG CAPSULE Take 100 mg by mouth four carlos* FUROSEMIDE 20 MG TABLET Take 1 tablet by mouth every * Patient taking differently: Take 20 mg by mouth once gilmar* COMPOUNDED PRESCRIPTION Thigh High Compression Stocki* Problem List As Of Date 01/16/2018 Noted Resolved Hypertension goal BP (blood pressure) < 150/90 *INVALID FOR* More... Rheumatoid arthritis of multiple sites with neg*INVALID FOR* More... 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 Other diseases of lung, not elsewhere classifie*INVALID FOR*02/11/2015 More... SLEEP APNEA NOS [G47.30] INVALID FOR*04/18/2006 Obesity, unspecified [E66.9] INVALID FOR*02/11/2015 Impaired fasting glucose [R73.01] INVALID FOR*02/27/2012 More... 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] INVALID FOR*02/11/2015 Candidal intertrigo [B37.2] INVALID FOR*02/11/2015 Intertrigo [L30.4] INVALID FOR*02/11/2015 Eczema Dermatitis and Other Eczema, due to Unsp*INVALID FOR*09/28/2016 Diabetes mellitus (HCC) [E11.9] INVALID FOR*01/05/2015 Venous insufficiency [I87.2] INVALID FOR*07/15/2015 Edema [R60.9] INVALID FOR*02/11/2015 Pain in joint, shoulder region [M25.519] INVALID FOR*02/11/2015 Disorders of bursae and tendons in shoulder reg*INVALID FOR*09/28/2016 Diabetes mellitus type 2, controlled [E11.9] INVALID FOR*02/11/2015 DM (diabetes mellitus), type 2 (HCC) [E11.9] INVALID FOR*07/15/2015 Venous insufficiency (chronic) (peripheral) [I8*INVALID FOR* More... Atrial fibrillation (HCC) [I48.91] INVALID FOR* More... Type 2 diabetes mellitus with diabetic chronic *INVALID FOR*01/06/2016 Lymphedema, not elsewhere classified [I89.0] INVALID FOR*05/17/2017 Type 2 diabetes mellitus with stage 3 chronic k*INVALID FOR* More... Pulmonary nodule [R91.1] INVALID FOR* More... Systolic congestive heart failure (HCC) [I50.20]INVALID FOR* More... Hydronephrosis [N13.30] INVALID FOR* UI (urinary incontinence) [R32] INVALID FOR* Patent ductus arteriosus [Q25.0] INVALID FOR* More... S/P Maze operation for atrial fibrillation [Z98*INVALID FOR* More... CKD (chronic kidney disease) stage 3, GFR 30-59*INVALID FOR* More... Anemia, unspecified [D64.9] INVALID FOR* Hypoxemia requiring supplemental oxygen [R09.02*INVALID FOR*10/19/2017 Hypercalcemia [E83.52] INVALID FOR* Hypervitaminosis D (rule out granulomatous dise*INVALID FOR* Venous stasis ulcers of both lower extremities *INVALID FOR* Depressive disorder [F32.9] INVALID FOR* Lumbar radiculopathy, chronic [M54.16] INVALID FOR* Gait abnormality [R26.9] INVALID FOR* Pyoderma gangrenosum [L88] INVALID FOR* Anemia due to blood loss [D50.0] INVALID FOR* Encounter Status:Closed by BONNIE DRAKE LPN on 01/16/18 CBC AND DIFFERENTIAL Collected: 01/09/2018 Status: F Source: [place] 8:56 AM [facility] REPOSITORY TYPE CODE TESTS RESULT OUT OF REFERENCE UNITS RANGE LAB WBC 3.70-11.00 k/uL WBC High 12.17 LAB RBC 3.90-5.20 m/uL RBC 4.42 LAB HGB 11.5-15.5 g/dL Low Hemoglobin 10.5 LAB HCT 36.0-46.0 % Low Hematocrit 35.4 LAB MCV 80.0-100.0 fL MCV 80.1 LAB MCH 26.0-34.0 pG Low MCH 23.8 LAB MCHC 30.5-36.0 g/dL Low MCHC 29.7 LAB RDWCV 11.5-15.0 % RDW-CV High 23.9 LAB PLTCT 150-400 k/uL Platelet Count 324 LAB MPV 9.0-12.7 fL MPV 9.8 LAB ANEUT % Neut% 82.5 LAB AANEUT 1.45-7.50 k/uL Abs Neut High 10.04 LAB ALYMP % Lymph% 10.4 LAB AALYMP 1.00-4.00 k/uL Abs Lymph 1.27 LAB AMONO % [place]% 6.2 LAB AAMONO <0.87 k/uL Abs [place] 0.75 LAB AEOS % Eosin% 0.7 LAB AAEOS <0.46 k/uL Abs Eosin 0.09 LAB ABASO % Baso% 0.2 LAB AABASO <0.11 k/uL Abs Baso <0.03 LAB AUNRBC 0 /100 WBC NRBCs 0.0 LAB ABNRBC <0.01 k/uL Absolute nRBC <0.01 LAB DTYP DTYPE Auto Diff Performed By: #### CBCDIF, FT4, T3, BMP, TSH #### [facility] [address] [address] FREE T4 Collected: 01/09/2018 Status: F Source: [place] 8:56 AM [facility] REPOSITORY TYPE CODE TESTS RESULT OUT OF RANGE REFERENCE UNITS LAB FT4 0.9-1.7 ng/dL Free T4 1.2 Performed By: #### CBCDIF, FT4, T3, BMP, TSH #### [place] [address] T3 Collected: 01/09/2018 Status: F Source: [facility] 8:56 AM [facility] REPOSITORY TYPE CODE TESTS RESULT OUT OF RANGE REFERENCE UNITS LAB T3 79-165 ng/dL Low T3 70 Performed By: #### CBCDIF, FT4, T3, BMP, TSH #### [place] [address] BASIC METABOLIC PANL Collected: 01/09/2018 Status: F Source: [place] 8:56 AM [facility] REPOSITORY TYPE CODE TESTS RESULT OUT OF REFERENCE UNITS RANGE LAB GLU 74-99 mg/dL High Glucose 136 Result Comment: The [place] Diabetes Association (ADA) provides guidance for cutoff values for fasting glucose and random glucose. The ADA defines fasting as no caloric intake for at least 8 hours. Fas ting plasma glucose results between 100 to 125 mg/dL indicate increased risk for diabetes (prediabetes). Fasting plasma glucose results greater than or equal to 126 mg/dL meet the criteria for diagnosis of diabetes. In the absence of unequivocal hyperglycemia, results should be confirmed by repeat testing. In a patient with classic symptoms of hyperglycemia or hyperglycemic crisis, random plasma glucose results greater than or equal to 200 mg/dL meet the criteria for diagnosis of diabetes. Reference: Standards of Medical Care in Diabetes 2016, [place] [employer] Association. Diabetes Care. 2016.39(Suppl 1). LAB BUN 7-21 mg/dL BUN 19 LAB CRET 0.58-0.96 mg/dL Creatinine High 1.28 LAB NA 136-144 mmol/L Sodium 140 LAB K 3.7-5.1 mmol/L Potassium 4.0 LAB CL 97-105 mmol/L Chloride 99 LAB CO2 22-30 mmol/L CO2 25 LAB AGAP 9-18 mmol/L Anion Gap 16 LAB CA 8.5-10.2 mg/dL Calcium, Total 8.8 LAB GFRAA eGFR- Amer. 50 LAB GFRNAA . eGFR-All Other Races 41 Result Comment: eGFR (Estimated GFR) Units of measure: mL/min/1.73 meters squared eGFR is derived from the reexpressed MDRD Study equation using the following parameters: serum creatinine, age, gender and race. The creatinine assay has been calibrated to be traceable to IDMS. An eGFR <60 mL/min/1.73m2 for >3 months is consistent with chronic kidney disease. Refer to KDOQI guidelines for clinical interpretation. In patients with unstable renal function, e.g. those with acute kidney injury, the eGFR may not accurately reflect actual GFR. Performed By: #### CBCDIF, FT4, T3, BMP, TSH #### [facility] [address] [address] TSH Collected: 01/09/2018 Status: F Source: [place] 8:56 AM [facility] REPOSITORY TYPE CODE TESTS RESULT OUT OF RANGE REFERENCE UNITS LAB TSH 0.400-5.500 uU/mL TSH 3.600 Performed By: #### CBCDIF, FT4, T3, BMP, TSH #### [facility] [address] [id number] PROGRESS Observed: 01/09/2018 Status: COMPLETED Source: [place] 7:54 AM [facility] REPOSITORY HNO ID: [id number] Author: Veronique Powell Cma Service: (none) Author Type: (none) Type: Progress Notes Filed: 01/09/2018 7:55 AM Note Text: Note copied into patient's progress note for TCM today. PROGRESS Observed: 01/09/2018 Status: COMPLETED Source: [place] 7:51 AM [facility] [place] REPOSITORY HNO ID: [id number] Author: Millicent (Kristen) Older Service: (none) Author Type: Nurse Practitioner Type: Progress Notes Filed: 01/09/2018 9:15 AM Note Text: TRANSITION CARE MANAGEMENT (TCM) INITIAL CONTACT ? ? Provider Action/FYI: Pt w/diarrhea last couple days in hosp and currently. taking Imodium. OFF Anti-coag currently ? ? Initial contact with patient post discharge, spoke to Di. Patient identified by name and . ? SUMMARY: -Pt discharged from [facility] TCU on 12-31-17. Adm [facility] 12/07 w/GI bleed -Follow up appointment on 01/05 w/Millicent Barrios for TCM-7. -Medication review done w/pt. -Admitted for: GI Bleed then to TCU for debility. CONCERNS: Having diarrhea. Started Immodium this AM, will take another one later if no better. Has leg wounds. She has [facility] assisting post hospitalization. SHE HAS A FIB AND IS OFF XARELTO. CONSIDER RESTART W/LOWER RISK ANTICOAG. ? ? NEW MEDICATIONS: Insurance will not approve the Oxycontin, but she has MS Contin from [facility], but only a few left. ? MEDS HELD/DISCONTINUED: ? ? BRIEF HOSPITAL COURSE: ? 72 year old F with multiple comorbidities including chronic heart failure with preserved EF, bilateral lower extremity pain/cellulitis, chronic A. fib on Xarelto admitted with generalized weakness for 3-4 weeks and bright red rectal bleed. Patient was been feeling progressively weak and had fall earlier on, came to the ED and got peña in the head in ER. ? Active management in the hospital was: ? 1. Acute GI bleed, off Xarelto, managed conservatively, HANDH was stable, Dr. Alvarado saw her in the hospital, will follow up in the outpatient for colonoscopy. ? 2. Acute blood loss anemia secondary to GI bleed from Xarelto. She received 1 unit packed RBC transfusion, Hb remained stable, to be followed up in the outpatient. ? 3. Chronic A. fib with RVR, status post maze procedure, rate controlled, off Xarelto on account of GI bleed, discussed with cardiology, Dr. Childers, patient is okay to be off Xarelto as risks of bleeding outweighs risk of stroke. This was explained to the patient and she agreed. ? 4. Klebsiella pneumonia UTI, completed 5 days of IV ceftriaxone in the hospital. ? 5. Chronic heart failure with preserved EF, stable, as of acute exacerbation, on alternate day Lasix. ? 6. Peripheral arterial disease, bilateral lower extremity venous stasis ulcers, calciphylaxis/peripheral neuropathy chronic, started on prednisone taper for possible suspicion of pyoderma gangrenosum, will taper off steroids, wound nurse will follow-up in TCU ? 7. Diabetes mellitus type 2, blood sugars have been stable, on Accu-Cheks and insulin sliding scale (Copied from [employer] [facility]/C) Transitional Care Management Progress Note The patients TCM visit was performed within the 14 days of discharge. Patient's Date of discharge: 12/31/17 Date of initial coordinator contact after discharge: 01/01/18 Discharge diagnosis: see above for diagnosis Medication review completed Yes Provider Documentation: I have reviewed the patient?s last hospital course including diagnostic testing performed during this hospitalization, their discharge medications, and my assessment and plan with the patient and any family members present at today?s visit. CC: Patient presents with: [facility] D/C: TCM HPI Di Zapata is a 72 year old female who presents today for hospital and residential follow-up. Date of visit: [facility] 12/07 to 12/22. TCU 12/12 to 12/31 Diagnoses: GI bleed secondary to Xarelto requiring 1 unit PRBC's during admission. CBC 12/27 Hgb 8.8, Hct 28.5. Patient denies dizziness, lightheadedness, syncope, SOB. Stools are dark but does take iron. No melena or hematochezia. No abdominal pain, nausea, vomiting. Diarrhea has resolved but stools are still very soft and not formed. Pyoderma gangrenosum of legs treated with steroids with improvement, still on tapering dose. Wound care for ulcerations to bilateral lower extremities during admission, currently has home health that changes dressings. Patient reports improvement in wounds and decreased pain. No redness, increased swelling, fever, chills. Advised at discharge to follow-up with dermatology for skin biopsy. Still trying to find engine turner that is covered by insurance to schedule with. Afib- Xarelto and Aspirin discontinued. Already had cardiology follow-up appointment after discharge, no anticoagulants at this time and will follow-up with Alvarado in 3 months. Metoprolol increased during hospital admission, no changes made at follow-up. Denies chest pain, heart palpitations. Bilateral leg pain secondary to ulcers and RA- current pain med regimen controlling pain. Managed by pain management, follow-up appointment today. Hypotensive- BP checked by home health nurses, average 80's over 60's. Patient reports fatigue and weakness but unsure if it is due to low BP or multiple other issues. Patient only allowed 40 ounces of water a day due to fluid restriction for CHF, admits drinking a lot less than that amount. REVIEW OF SYSTEMS General: no change in appetite and no significant changes in weight Respiratory: no cough, no wheezing : Negative for dysuria, frequency, hematuria, hesitancy and urgency PAST MEDICAL HISTORY Diagnosis Date - Ankylosing spondylitis (HCC) - Diabetes mellitus without mention of complication Diabetes mellitus - Disorders of bursae and tendons in shoulder region, unspecified 06/20/2013 - Diverticulosis of colon (without mention of hemorrhage) - Eczema Dermatitis and Other Eczema, due to Unspec 09/16/2009 - Esophagitis - Essential hypertension, benign - Hypoxemia requiring supplemental oxygen 05/17/2017 - Internal hemorrhoids without mention of complication - Other diseases of lung, not elsewhere classified - Other dyspnea and respiratory abnormality dyspnea - PMH - PAST MEDICAL HISTORY OF carpal tunnel right - Rheumatoid arthritis(714.0) - Stricture and stenosis of esophagus - Unspecified sleep apnea PAST SURGICAL HISTORY Procedure Laterality Date - COLONOSCOP W/ OR W/O [facility] SPEC 07/02/07 - EGD W/O OR W/BRUSH/WASH 02/09/01 EGD - ESOPH W/O [facility] SPEC BALLOON DIL 02/09/01 Esophageal dilatation - MAZE PROCEDURE 01/12/2017 [facility], [facility] - MAZE PROCEDURE 05/04/2017 2nd part, [facility] - PAST SURGICAL HISTORY OF 1970 'patent ductus' - PAST SURGICAL HISTORY OF 1993 '[place]' Procedure - PAST SURGICAL HISTORY OF 1999 Left foot surgey - PAST SURGICAL HISTORY OF 2001 Lymph nodes (2) removed-Right Neck - PAST SURGICAL HISTORY OF 2003 mole removal - REMOVAL GALLBLADDER Cholecystectomy - VAG HYSTERCTMY W/EDNA REP VAG AANDP 1990 ovaries spared ALLERGIES Bactrim [Sulfamethoxazole-Trimethoprim]; Cardura [Doxazosin]; Ceftriaxone; Demerol [Meperidine (Pf)]; Doxycycline; Norvasc [Amlodipine Besylate]; Sulfa (Sulfonamide Antibiotics); Vasotec [Enalapril Maleate]; Vistaril [Hydroxyzine Hcl] MEDICATIONS FLUoxetine (PROZAC) 20 mg capsule Take 1 capsule by mouth once daily. morphine SR (MS CONTIN, ORAMORPH SR) 15 mg 12 hr tablet Take 1 tablet by mouth every 12 hours. gabapentin (NEURONTIN) 100 mg capsule Take 100 mg by mouth four times daily. Per Dr. Carbajal furosemide (LASIX) 20 mg tablet Take 1 tablet by mouth every other day. 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 SANTYL ointment Apply 1 application to affected area once daily. aspirin, enteric coated (ASPIR-LOW) 81 mg EC tablet Take 1 tablet by mouth once daily. metoprolol tartrate, short acting, (LOPRESSOR) 25 mg tablet Take 0.5 tablets by mouth twice daily. FAMILY HISTORY Problem Relation Age of Onset - Arthritis Father - Diabetes Mother - Cancer Brother lymphoma - Cancer Maternal Uncle prostate Social History Substance Use Topics - Smoking status: Never Smoker - Smokeless tobacco: Never Used - Alcohol use No PHYSICAL EXAM BP 81/60 Pulse 100 Temp 36.4 ?C (97.6 ?F) (Temporal Artery) Resp 16 Wt 74.4 kg (164 lb) SpO2 95% BMI 28.6 kg/m2 General Appearance: well appearing, in no acute distress, alert Skin: Skin color, texture, turgor normal for age; Eyes: conjunctiva pink and moist, no icterus, sclera white, non-injected Oropharynx: dry Lungs: Good air exchange. Fine rales posterior bases. No wheezing or rhonchi Heart: Irregularly irregular without murmur, gallop, or rubs. No ectopy Abdomen: Abdomen soft, non-tender. Bowel sounds normal. No masses, organomegaly Ext: Radial pulses 2+. No edema in the upper extremities. Unable to evaluate lower extremities secondary to dressings, not removed. COLORECTAL CANCER SCREENING,SEE MODIFIER due on 07/02/2017 HBA1C due on 05/08/2018 DIABETIC FOOT EXAM due on 05/17/2018 URINE ALBUMIN CREATININE RATIO due on 05/24/2018 LDL due on 05/24/2018 DILATED RETINAL EXAM due on 07/24/2018 MAMMOGRAM due on 11/17/2018 TETANUS due on 10/19/2027 BONE DENSITY Completed ADULT PREVNAR-13 Completed INFLUENZA Completed HEPATITIS C SCREENING Completed PNEUMOVAX AGE 65 AND OVER WITH 5YR LOOKBACK Completed ASSESSMENT/PLAN: 1. Anemia due to blood loss - ICD9: 280.0, ICD10: D50.0 (primary diagnosis) No symptoms concerning for recurrent GI bleed Repeat CBC with diff today - CBC + DIFF 2. Hypotension, unspecified hypotension type - ICD9: 458.9, ICD10: I95.9 Multifactorial including Metoprolol, anemia and inadequate fluid intake Encouraged patient to drink maximum allowed amount of fluids daily Check BMP today Home health nurses to check BP and call if consistent SBP less than 80 or if patient becomes dizzy, lightheaded or passes out Continue with Metoprolol 25 mg BID for rate control, heart rate 100 today - BASIC METABOLIC PNL 3. Chronic atrial fibrillation (HCC) - ICD9: 427.31, ICD10: I48.2 No anticoagulation for now per cardiology. Follow-up in 3 months as scheduled 4. Pyoderma gangrenosum - ICD9: 686.01, ICD10: L88 Referred to dermatology, given names/phone numbers of two local dermatologists. Patient will call today and schedule appointment. Call office if unable to get a sooner appointment Continue with wound care at home 5. CKD (chronic kidney disease) stage 3, GFR 30-59 ml/min - ICD9: 585.3, ICD10: N18.3 - BASIC METABOLIC PNL 6. Chronic systolic congestive heart failure (HCC) - ICD9: 428.22, 428.0, ICD10: I50.22 Stable 7. Rheumatoid arthritis of multiple sites with negative rheumatoid factor (HCC) - ICD9: 714.0, ICD10: M06.09 Pain well controlled for now Follow-up with pain management today Prescription instructions reviewed with patient as applicable. Potential red flag symptoms discussed with the patient. Reviewed appropriate action plan to take if red flag symptoms occur. Patient agreeable to treatment plan. Millicent Barrios APRN.KRISTEN KAMOV Observed: 01/09/2018 Status: COMPLETED Source: [place] 7:40 AM [facility] [place] REPOSITORY Office Visit (INTMWS) DI ZAPATA ([id number]) 1945 F Date Time Provider Department 01/09/18 7:40 AM OLDER, MILLICENT (KRISTEN) INTMWS During your visit today, we recorded the following information about you: Temperature Pulse Respiration Blood pressure 97.6 degrees 100/minute 16/minute 90/58 Weight 74.4 kg Millicent Older, PROFESSOR OF ENVIRONMENTAL STUDIES.GRADUATE ADVISOR 01/09/2018 9:15 AM Signed TRANSITION CARE MANAGEMENT (TCM) INITIAL CONTACT ? ? Provider Action/FYI: Pt w/diarrhea last couple days in hosp and currently. taking Imodium. OFF Anti-coag currently ? ? Initial contact with patient post discharge, spoke to Di. Patient identified by name and . ? SUMMARY: -Pt discharged from [facility] TCU on 12-31-17. Adm [facility] 12/07 w/GI bleed -Follow up appointment on 01/05 w/Millicent Barrios for TCM-7. -Medication review done w/pt. -Admitted for: GI Bleed then to TCU for debility. CONCERNS: Having diarrhea. Started Immodium this AM, will take another one later if no better. Has leg wounds. She has [facility] assisting post hospitalization. SHE HAS A FIB AND IS OFF XARELTO. CONSIDER RESTART W/LOWER RISK ANTICOAG. ? ? NEW MEDICATIONS: Insurance will not approve the Oxycontin, but she has MS Contin from [facility], but only a few left. ? MEDS HELD/DISCONTINUED: ? ? BRIEF HOSPITAL COURSE: ? 72 year old F with multiple comorbidities including chronic heart failure with preserved EF, bilateral lower extremity pain/cellulitis, chronic A. fib on Xarelto admitted with generalized weakness for 3-4 weeks and bright red rectal bleed. Patient was been feeling progressively weak and had fall earlier on, came to the ED and got peña in the head in ER. ? Active management in the hospital was: ? 1. Acute GI bleed, off Xarelto, managed conservatively, HANDamp;H was stable, Dr. Jenny saw her in the hospital, will follow up in the outpatient for colonoscopy. ? 2. Acute blood loss anemia secondary to GI bleed from Xarelto. She received 1 unit packed RBC transfusion, Hb remained stable, to be followed up in the outpatient. ? 3. Chronic A. fib with RVR, status post maze procedure, rate controlled, off Xarelto on account of GI bleed, discussed with cardiology, Dr. Childers, patient is okay to be off Xarelto as risks of bleeding outweighs risk of stroke. This was explained to the patient and she agreed. ? 4. Klebsiella pneumonia UTI, completed 5 days of IV ceftriaxone in the hospital. ? 5. Chronic heart failure with preserved EF, stable, as of acute exacerbation, on alternate day Lasix. ? 6. Peripheral arterial disease, bilateral lower extremity venous stasis ulcers, calciphylaxis/peripheral neuropathy chronic, started on prednisone taper for possible suspicion of pyoderma gangrenosum, will taper off steroids, wound nurse will follow-up in TCU ? 7. Diabetes mellitus type 2, blood sugars have been stable, on Accu-Cheks and insulin sliding scale (Copied from [facility]) Transitional Care Management Progress Note The patients TCM visit was performed within the 14 days of discharge. Patient's Date of discharge: 12/31/17 Date of initial coordinator contact after discharge: 01/01/18 Discharge diagnosis: see above for diagnosis Medication review completed Yes Provider Documentation: I have reviewed the patient?s last hospital course including diagnostic testing performed during this hospitalization, their discharge medications, and my assessment and plan with the patient and any family members present at today?s visit. CC: Patient presents with: [facility] D/C: TCM HPI Di Zapata is a 72 year old female who presents today for hospital and residential follow-up. Date of visit: [facility] 12/07 to 12/22. TCU 12/12 to 12/31 Diagnoses: GI bleed secondary to Xarelto requiring 1 unit PRBC's during admission. CBC 12/27 Hgb 8.8, Hct 28.5. Patient denies dizziness, lightheadedness, syncope, SOB. Stools are dark but does take iron. No melena or hematochezia. No abdominal pain, nausea, vomiting. Diarrhea has resolved but stools are still very soft and not formed. Pyoderma gangrenosum of legs treated with steroids with improvement, still on tapering dose. Wound care for ulcerations to bilateral lower extremities during admission, currently has home health that changes dressings. Patient reports improvement in wounds and decreased pain. No redness, increased swelling, fever, chills. Advised at discharge to follow-up with dermatology for skin biopsy. Still trying to find engine turner that is covered by insurance to schedule with. Afib- Xarelto and Aspirin discontinued. Already had cardiology follow-up appointment after discharge, no anticoagulants at this time and will follow-up with [facility] in 3 months. Metoprolol increased during hospital admission, no changes made at follow-up. Denies chest pain, heart palpitations. Bilateral leg pain secondary to ulcers and RA- current pain med regimen controlling pain. Managed by pain management, follow-up appointment today. Hypotensive- BP checked by home health nurses, average 80's over 60's. Patient reports fatigue and weakness but unsure if it is due to low BP or multiple other issues. Patient only allowed 40 ounces of water a day due to fluid restriction for CHF, admits drinking a lot less than that amount. REVIEW OF SYSTEMS General: no change in appetite and no significant changes in weight Respiratory: no cough, no wheezing : Negative for dysuria, frequency, hematuria, hesitancy and urgency PAST MEDICAL HISTORY Diagnosis Date - Ankylosing spondylitis (HCC) - Diabetes mellitus without mention of complication Diabetes mellitus - Disorders of bursae and tendons in shoulder region, unspecified 06/20/2013 - Diverticulosis of colon (without mention of hemorrhage) - Eczema Dermatitis and Other Eczema, due to Unspec 09/16/2009 - Esophagitis - Essential hypertension, benign - Hypoxemia requiring supplemental oxygen 05/17/2017 - Internal hemorrhoids without mention of complication - Other diseases of lung, not elsewhere classified - Other dyspnea and respiratory abnormality dyspnea - PMH - PAST MEDICAL HISTORY OF carpal tunnel right - Rheumatoid arthritis(714.0) - Stricture and stenosis of esophagus - Unspecified sleep apnea PAST SURGICAL HISTORY Procedure Laterality Date - COLONOSCOP W/ OR W/O [facility] SPEC 07/02/07 - EGD W/O OR W/BRUSH/WASH 02/09/01 EGD - ESOPH W/O [facility] SPEC BALLOON DIL 02/09/01 Esophageal dilatation - MAZE PROCEDURE 01/12/2017 Initial, [facility] - MAZE PROCEDURE 05/04/2017 2nd part, [facility] - PAST SURGICAL HISTORY OF 1970 'patent ductus' - PAST SURGICAL HISTORY OF 1993 '[place]' Procedure - PAST SURGICAL HISTORY OF 1999 Left foot surgey - PAST SURGICAL HISTORY OF 2001 Lymph nodes (2) removed-Right Neck - PAST SURGICAL HISTORY OF 2003 mole removal - REMOVAL GALLBLADDER Cholecystectomy - VAG HYSTERCTMY W/EDNA REP VAG AANDamp;P 1990 ovaries spared ALLERGIES Bactrim [Sulfamethoxazole-Trimethoprim]; Cardura [Doxazosin]; Ceftriaxone; Demerol [Meperidine (Pf)]; Doxycycline; Norvasc [Amlodipine Besylate]; Sulfa (Sulfonamide Antibiotics); Vasotec [Enalapril Maleate]; Vistaril [Hydroxyzine Hcl] MEDICATIONS FLUoxetine (PROZAC) 20 mg capsule Take 1 capsule by mouth once daily. morphine SR (MS CONTIN, ORAMORPH SR) 15 mg 12 hr tablet Take 1 tablet by mouth every 12 hours. gabapentin (NEURONTIN) 100 mg capsule Take 100 mg by mouth four times daily. Per Dr. Carbajal furosemide (LASIX) 20 mg tablet Take 1 tablet by mouth every other day. 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 SANTYL ointment Apply 1 application to affected area once daily. aspirin, enteric coated (ASPIR-LOW) 81 mg EC tablet Take 1 tablet by mouth once daily. metoprolol tartrate, short acting, (LOPRESSOR) 25 mg tablet Take 0.5 tablets by mouth twice daily. FAMILY HISTORY Problem Relation Age of Onset - Arthritis Father - Diabetes Mother - Cancer Brother lymphoma - Cancer Maternal Uncle prostate Social History Substance Use Topics - Smoking status: Never Smoker - Smokeless tobacco: Never Used - Alcohol use No PHYSICAL EXAM BP 81/60 Pulse 100 Temp 36.4 ?C (97.6 ?F) (Temporal Artery) Resp 16 Wt 74.4 kg (164 lb) SpO2 95% BMI 28.6 kg/m2 General Appearance: well appearing, in no acute distress, alert Skin: Skin color, texture, turgor normal for age; Eyes: conjunctiva pink and moist, no icterus, sclera white, non-injected Oropharynx: dry Lungs: Good air exchange. Fine rales posterior bases. No wheezing or rhonchi Heart: Irregularly irregular without murmur, gallop, or rubs. No ectopy Abdomen: Abdomen soft, non-tender. Bowel sounds normal. No masses, organomegaly Ext: Radial pulses 2+. No edema in the upper extremities. Unable to evaluate lower extremities secondary to dressings, not removed. COLORECTAL CANCER SCREENING,SEE MODIFIER due on 07/02/2017 HBA1C due on 05/08/2018 DIABETIC FOOT EXAM due on 05/17/2018 URINE ALBUMIN CREATININE RATIO due on 05/24/2018 LDL due on 05/24/2018 DILATED RETINAL EXAM due on 07/24/2018 MAMMOGRAM due on 11/17/2018 TETANUS due on 10/19/2027 BONE DENSITY Completed ADULT PREVNAR-13 Completed INFLUENZA Completed HEPATITIS C SCREENING Completed PNEUMOVAX AGE 65 AND OVER WITH 5YR LOOKBACK Completed ASSESSMENT/PLAN: 1. Anemia due to blood loss - ICD9: 280.0, ICD10: D50.0 (primary diagnosis) No symptoms concerning for recurrent GI bleed Repeat CBC with diff today - CBC + DIFF 2. Hypotension, unspecified hypotension type - ICD9: 458.9, ICD10: I95.9 Multifactorial including Metoprolol, anemia and inadequate fluid intake Encouraged patient to drink maximum allowed amount of fluids daily Check BMP today Home health nurses to check BP and call if consistent SBP less than 80 or if patient becomes dizzy, lightheaded or passes out Continue with Metoprolol 25 mg BID for rate control, heart rate 100 today - BASIC METABOLIC PNL 3. Chronic atrial fibrillation (HCC) - ICD9: 427.31, ICD10: I48.2 No anticoagulation for now per cardiology. Follow-up in 3 months as scheduled 4. Pyoderma gangrenosum - ICD9: 686.01, ICD10: L88 Referred to dermatology, given names/phone numbers of two local dermatologists. Patient will call today and schedule appointment. Call office if unable to get a sooner appointment Continue with wound care at home 5. CKD (chronic kidney disease) stage 3, GFR 30-59 ml/min - ICD9: 585.3, ICD10: N18.3 - BASIC METABOLIC PNL 6. Chronic systolic congestive heart failure (HCC) - ICD9: 428.22, 428.0, ICD10: I50.22 Stable 7. Rheumatoid arthritis of multiple sites with negative rheumatoid factor (HCC) - ICD9: 714.0, ICD10: M06.09 Pain well controlled for now Follow-up with pain management today Prescription instructions reviewed with patient as applicable. Potential red flag symptoms discussed with the patient. Reviewed appropriate action plan to take if red flag symptoms occur. Patient agreeable to treatment plan. KARISSA Corbin APRN.CNP 01/09/2018 8:23 AM Addendum Complaint Specialist in [place]: [facility] (Dr. Lenard Del Angel) [phone], [facility] (Dr. Morales) [phone] If you are unable to get a sooner appointment notify this office Call if Systolic BP consistently less than 80 or if you develop dizziness or lightheadedness Referring Provider: SELF [[id number]] Allergies As of Date: 01/09/2018 Noted Allergy Reaction BACTRIM (SULFAMETHOXAZOLE-TRIMETH*06/29/2007 2 - Rash CARDURA (DOXAZOSIN) 04/24/2013 16 - Unknown CEFTRIAXONE 08/10/2017 14 - Other: See Comments Comments: Veins turned red DEMEROL (MEPERIDINE (PF)) 04/18/2006 DOXYCYCLINE 04/18/2006 NORVASC (AMLODIPINE BESYLATE) 04/06/2011 7 - Swelling SULFA (SULFONAMIDE ANTIBIOTICS) 07/04/2005 2 - Rash VASOTEC (ENALAPRIL MALEATE) 04/18/2006 3 - Cough VISTARIL (HYDROXYZINE HCL) 04/18/2006 Date Reviewed: 01/09/2018 Reviewed by: Veronique Powell [employer] 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 Assessed Reason for Visit: [facility] D/C [Other] Cmt: TCM Primary Visit Diagnosis:Anemia due to blood loss [D50.0] Other Visit Diagnoses:Hypotension, unspecified hypotension type [I95.9] Chronic atrial fibrillation (HCC) [I48.2] Pyoderma gangrenosum [L88] CKD (chronic kidney disease) stage 3, GFR 30-59 ml/min [N18.3] Chronic systolic congestive heart failure (HCC) [I50.22] Rheumatoid arthritis of multiple sites with negative rheumatoid factor (HCC) [M06.09] Order(s):metoprolol tartrate, short acting, (LOPRESSOR) 25 mg tabletTake 1 tablet by mouth twice daily.Disp: 60 tabletRfl: 5 BASIC METABOLIC PNL [SQBMP] Order #: [id number] FUTURE CBC + DIFF [SQCBCDIF] Order #: [id number] FUTURE Prescriptions as of 01/09/2018 Sig: FLUOXETINE 20 MG CAPSULE Take 1 capsule by mouth once * MORPHINE ER 15 MG TABLET,EXTE* Take 1 tablet by mouth every * GABAPENTIN 100 MG CAPSULE Take 100 mg by mouth four carlos* FUROSEMIDE 20 MG TABLET Take 1 tablet by mouth every * Patient taking differently: Take 20 mg by mouth once gilmar* COMPOUNDED PRESCRIPTION Thigh High Compression Stocki* METOPROLOL TARTRATE 25 MG TAB* Take 1 tablet by mouth twice * PANTOPRAZOLE 40 MG TABLET,DEL* Take 1 tablet by mouth twice * POTASSIUM CHLORIDE ER 10 MEQ * Take 1 tablet by mouth daily * POLYSACCHARIDE IRON COMPLEX 1* Take 1 capsule by mouth once * SANTYL 250 UNIT/GRAM TOPICAL * Apply 1 application to affect* Problem List As Of Date 01/09/2018 Noted Resolved Hypertension goal BP (blood pressure) < 150/90 *INVALID FOR* More... Rheumatoid arthritis of multiple sites with neg*INVALID FOR* More... 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 Other diseases of lung, not elsewhere classifie*INVALID FOR*02/11/2015 More... SLEEP APNEA NOS [G47.30] INVALID FOR*04/18/2006 Obesity, unspecified [E66.9] INVALID FOR*02/11/2015 Impaired fasting glucose [R73.01] INVALID FOR*02/27/2012 More... 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] INVALID FOR*02/11/2015 Candidal intertrigo [B37.2] INVALID FOR*02/11/2015 Intertrigo [L30.4] INVALID FOR*02/11/2015 Eczema Dermatitis and Other Eczema, due to Unsp*INVALID FOR*09/28/2016 Diabetes mellitus (HCC) [E11.9] INVALID FOR*01/05/2015 Venous insufficiency [I87.2] INVALID FOR*07/15/2015 Edema [R60.9] INVALID FOR*02/11/2015 Pain in joint, shoulder region [M25.519] INVALID FOR*02/11/2015 Disorders of bursae and tendons in shoulder reg*INVALID FOR*09/28/2016 Diabetes mellitus type 2, controlled [E11.9] INVALID FOR*02/11/2015 DM (diabetes mellitus), type 2 (HCC) [E11.9] INVALID FOR*07/15/2015 Venous insufficiency (chronic) (peripheral) [I8*INVALID FOR* More... Atrial fibrillation (HCC) [I48.91] INVALID FOR* More... Type 2 diabetes mellitus with diabetic chronic *INVALID FOR*01/06/2016 Lymphedema, not elsewhere classified [I89.0] INVALID FOR*05/17/2017 Type 2 diabetes mellitus with stage 3 chronic k*INVALID FOR* More... Pulmonary nodule [R91.1] INVALID FOR* More... Systolic congestive heart failure (HCC) [I50.20]INVALID FOR* More... Hydronephrosis [N13.30] INVALID FOR* UI (urinary incontinence) [R32] INVALID FOR* Patent ductus arteriosus [Q25.0] INVALID FOR* More... S/P Maze operation for atrial fibrillation [Z98*INVALID FOR* More... CKD (chronic kidney disease) stage 3, GFR 30-59*INVALID FOR* More... Anemia, unspecified [D64.9] INVALID FOR* Hypoxemia requiring supplemental oxygen [R09.02*INVALID FOR*10/19/2017 Hypercalcemia [E83.52] INVALID FOR* Hypervitaminosis D (rule out granulomatous dise*INVALID FOR* Venous stasis ulcers of both lower extremities *INVALID FOR* Depressive disorder [F32.9] INVALID FOR* Lumbar radiculopathy, chronic [M54.16] INVALID FOR* Gait abnormality [R26.9] INVALID FOR* Pyoderma gangrenosum [L88] INVALID FOR* Anemia due to blood loss [D50.0] INVALID FOR* Other instructions from your clinician: Complaint Specialist in [place]: [facility] (Dr. Lenard Del Angel) [phone], [facility] (Dr. Morales) [phone] If you are unable to get a sooner appointment notify this office Call if Systolic BP consistently less than 80 or if you develop dizziness or lightheadedness Prescriptions ordered this encounter Disp Refills Start End METOPROLOL TARTRATE 25 MG TABLET 60 t* 5 01/09/2018 Route: ORAL Sig: Take 1 tablet by mouth twice daily. Medications Discontinued During This Encounter metoprolol tartrate, short acting, (* 30 t* 11 01/04/2017 01/09/2018 Route: ORAL Sig: Take 0.5 tablets by mouth twice daily. Disc: Reason for discontinue is not on file. rivaroxaban (XARELTO) 15 mg tablet 01/09/2018 Class: Historical Med Route: ORAL Sig: Take 15 mg by mouth daily with dinner. Disc: Reason for discontinue is not on file. aspirin, enteric coated (ASPIR-LOW) * 0 05/17/2017 01/09/2018 Class: Historical Med Route: ORAL Sig: Take 1 tablet by mouth once daily. Disc: Reason for discontinue is not on file. Encounter Status:Closed by MILLICENT BARRIOS CNP on 01/09/18 PROGRESS Observed: 01/02/2018 Status: COMPLETED Source: [place] 5:36 PM [facility] REPOSITORY HNO ID: [id number] Author: Becka Kingsley Service: (none) Author Type: Registered Nurse Type: Progress Notes Filed: 01/02/2018 5:42 PM Note Text: TRANSITION CARE MANAGEMENT (TCM) FOLLOW-UP NOTE Provider Action/FYI Doing better after 2 doses of Imodium. Patient identified by name and date of : YES Spoke to patient Summary: Feeling much better today after taking Imodium twice yesterday. Having normal BM today. Had egg and toast for breakfast. MoW for lunch-corn bread and 2 bites hotdog, peaches. Having a peanut butter AND onion sandwich (with butter) for dinner.. That's what she said she's craving.. Concerns: Doing better, will see on Monday. Stoneworking Sander plan for next outreach: Will follow up Fir at appt [facility] Becka Kingsley RN Ambulatory Television Maintenance Worker [facility] January 02, 2018 DIANA Observed: 01/02/2018 Status: COMPLETED Source: [place] 12:00 AM [facility] REPOSITORY Patient Outreach (INTMWS) EMMADI CAN ([id number]) 1945 F Date Time Provider Department 01/02/18 BECKA HONG During your visit today, we recorded the following information about you: Becka Aguayo RN 01/02/2018 5:42 PM Signed TRANSITION CARE MANAGEMENT (TCM) FOLLOW-UP NOTE Provider Action/FYI Doing better after 2 doses of Imodium. Patient identified by name and date of : YES Spoke to patient Summary: Feeling much better today after taking Imodium twice yesterday. Having normal BM today. Had egg and toast for breakfast. MoW for lunch- corn bread and 2 bites hotdog, peaches. Having a peanut butter ANDamp; onion sandwich (with butter) for dinner.. That's what she said she's craving.. Concerns: Doing better, will see on Monday. Stoneworking Sander plan for next outreach: Will follow up Fir at appt Signature Becka Kingsley shoe dresser Television Maintenance Worker Internal [facility] January 02, 2018 Allergies As of Date: 01/02/2018 Noted Allergy Reaction BACTRIM (SULFAMETHOXAZOLE-TRIMETH*06/29/2007 2 - Rash CARDURA (DOXAZOSIN) 04/24/2013 16 - Unknown CEFTRIAXONE 08/10/2017 14 - Other: See Comments Comments: Veins turned red DEMEROL (MEPERIDINE (PF)) 04/18/2006 DOXYCYCLINE 04/18/2006 NORVASC (AMLODIPINE BESYLATE) 04/06/2011 7 - Swelling SULFA (SULFONAMIDE ANTIBIOTICS) 07/04/2005 2 - Rash VASOTEC (ENALAPRIL MALEATE) 04/18/2006 3 - Cough VISTARIL (HYDROXYZINE HCL) 04/18/2006 Date Reviewed: 11/15/2017 Reviewed by: Luz Pascual LPN - Fully Assessed Reason for Visit: Television Maintenance Worker Hospital Follow Up [9753] Prescriptions as of 01/02/2018 Sig: FLUOXETINE 20 MG CAPSULE Take 1 capsule by mouth once * RIVAROXABAN 15 MG TABLET Take 15 mg by mouth daily wit* SANTYL 250 UNIT/GRAM TOPICAL * Apply 1 application to affect* MORPHINE ER 15 MG TABLET,EXTE* Take 1 tablet by mouth every * GABAPENTIN 100 MG CAPSULE Take 100 mg by mouth four carlos* FUROSEMIDE 20 MG TABLET Take 1 tablet by mouth every * Patient taking differently: Take 20 mg by mouth once gilmar* ASPIRIN 81 MG TABLET,DELAYED * Take 1 tablet by mouth once d* METOPROLOL TARTRATE 25 MG TAB* Take 0.5 tablets by mouth twi* COMPOUNDED PRESCRIPTION Thigh High Compression Stocki* Problem List As Of Date 01/02/2018 Noted Resolved Hypertension goal BP (blood pressure) < 150/90 *INVALID FOR* More... Rheumatoid arthritis of multiple sites with neg*INVALID FOR* More... 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 Other diseases of lung, not elsewhere classifie*INVALID FOR*02/11/2015 More... SLEEP APNEA NOS [G47.30] INVALID FOR*04/18/2006 Obesity, unspecified [E66.9] INVALID FOR*02/11/2015 Impaired fasting glucose [R73.01] INVALID FOR*02/27/2012 More... 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] INVALID FOR*02/11/2015 Candidal intertrigo [B37.2] INVALID FOR*02/11/2015 Intertrigo [L30.4] INVALID FOR*02/11/2015 Eczema Dermatitis and Other Eczema, due to Unsp*INVALID FOR*09/28/2016 Diabetes mellitus (HCC) [E11.9] INVALID FOR*01/05/2015 Venous insufficiency [I87.2] INVALID FOR*07/15/2015 Edema [R60.9] INVALID FOR*02/11/2015 Pain in joint, shoulder region [M25.519] INVALID FOR*02/11/2015 Disorders of bursae and tendons in shoulder reg*INVALID FOR*09/28/2016 Diabetes mellitus type 2, controlled [E11.9] INVALID FOR*02/11/2015 DM (diabetes mellitus), type 2 (HCC) [E11.9] INVALID FOR*07/15/2015 Venous insufficiency (chronic) (peripheral) [I8*INVALID FOR* More... Atrial fibrillation (HCC) [I48.91] INVALID FOR* More... Type 2 diabetes mellitus with diabetic chronic *INVALID FOR*01/06/2016 Lymphedema, not elsewhere classified [I89.0] INVALID FOR*05/17/2017 Type 2 diabetes mellitus with stage 3 chronic k*INVALID FOR* More... Pulmonary nodule [R91.1] INVALID FOR* More... Systolic congestive heart failure (HCC) [I50.20]INVALID FOR* More... Hydronephrosis [N13.30] INVALID FOR* UI (urinary incontinence) [R32] INVALID FOR* Patent ductus arteriosus [Q25.0] INVALID FOR* More... S/P Maze operation for atrial fibrillation [Z98*INVALID FOR* More... CKD (chronic kidney disease) stage 3, GFR 30-59*INVALID FOR* More... Anemia, unspecified [D64.9] INVALID FOR* Hypoxemia requiring supplemental oxygen [R09.02*INVALID FOR*10/19/2017 Hypercalcemia [E83.52] INVALID FOR* Hypervitaminosis D (rule out granulomatous dise*INVALID FOR* Venous stasis ulcers of both lower extremities *INVALID FOR* Depressive disorder [F32.9] INVALID FOR* Lumbar radiculopathy, chronic [M54.16] INVALID FOR* Gait abnormality [R26.9] INVALID FOR* Encounter Status:Closed by BECKA KINGSLEY on 01/02/18 PROGRESS Observed: 01/01/2018 Status: COMPLETED Source: [place] 3:41 PM [facility] REPOSITORY O ID: [id number] Author: Becka Kingsley Service: (none) Author Type: Registered Nurse Type: Progress Notes Filed: 01/09/2018 7:55 AM Note Text: TRANSITION CARE MANAGEMENT (TCM) INITIAL CONTACT Provider Action/FYI: Pt w/diarrhea last couple days in hosp and currently. taking Imodium. OFF Anti-coag currently Initial contact with patient post discharge, spoke to Di. Patient identified by name and . SUMMARY: -Pt discharged from [facility] TCU on 12-31-17. Adm [facility] 12/07 w/GI bleed -Follow up appointment on 01/05 w/Millicent Older for TCM-7. -Medication review done w/pt. -Admitted for: GI Bleed then to TCU for debility. CONCERNS: Having diarrhea. Started Immodium this AM, will take another one later if no better. Has leg wounds. She has [facility] assisting post hospitalization. SHE HAS A FIB AND IS OFF XARELTO. CONSIDER RESTART W/LOWER RISK ANTICOAG. NEW MEDICATIONS: Insurance will not approve the Oxycontin, but she has MS Contin from PM, but only a few left. MEDS HELD/DISCONTINUED: BRIEF HOSPITAL COURSE: 72 year old F with multiple comorbidities including chronic heart failure with preserved EF, bilateral lower extremity pain/cellulitis, chronic A. fib on Xarelto admitted with generalized weakness for 3-4 weeks and bright red rectal bleed. Patient was been feeling progressively weak and had fall earlier on, came to the ED and got peña in the head in ER. Active management in the hospital was: 1. Acute GI bleed, off Xarelto, managed conservatively, HANDH was stable, Dr. Alvarado saw her in the hospital, will follow up in the outpatient for colonoscopy. 2. Acute blood loss anemia secondary to GI bleed from Xarelto. She received 1 unit packed RBC transfusion, Hb remained stable, to be followed up in the outpatient. 3. Chronic A. fib with RVR, status post maze procedure, rate controlled, off Xarelto on account of GI bleed, discussed with cardiology, Dr. Childers, patient is okay to be off Xarelto as risks of bleeding outweighs risk of stroke. This was explained to the patient and she agreed. 4. Klebsiella pneumonia UTI, completed 5 days of IV ceftriaxone in the hospital. 5. Chronic heart failure with preserved EF, stable, as of acute exacerbation, on alternate day Lasix. 6. Peripheral arterial disease, bilateral lower extremity venous stasis ulcers, calciphylaxis/peripheral neuropathy chronic, started on prednisone taper for possible suspicion of pyoderma gangrenosum, will taper off steroids, wound nurse will follow-up in TCU 7. Diabetes mellitus type 2, blood sugars have been stable, on Accu-Cheks and insulin sliding scale (Copied from [employer] [facility]) CNPTOUTREACH Observed: 01/01/2018 Status: COMPLETED Source: [place] 12:00 AM [facility] REPOSITORY Patient Outreach (INTMWS) EMMADI ([id number]) 1945 F Date Time Provider Department 01/01/18 BECKA HONG During your visit today, we recorded the following information about you: Becka Aguayo RN 01/09/2018 7:55 AM Signed TRANSITION CARE MANAGEMENT (TCM) INITIAL CONTACT Provider Action/FYI: Pt w/diarrhea last couple days in hosp and currently. taking Imodium. OFF Anti-coag currently Initial contact with patient post discharge, spoke to Di. Patient identified by name and . SUMMARY: -Pt discharged from [facility] TCU on 12-31-17. Adm [facility] 12/07 w/GI bleed -Follow up appointment on 01/05 w/Millicent [facility] for TCM-7. -Medication review done w/pt. -Admitted for: GI Bleed then to TCU for debility. CONCERNS: Having diarrhea. Started Immodium this AM, will take another one later if no better. Has leg wounds. She has [facility] assisting post hospitalization. SHE HAS A FIB AND IS OFF XARELTO. CONSIDER RESTART W/LOWER RISK ANTICOAG. NEW MEDICATIONS: Insurance will not approve the Oxycontin, but she has MS Contin from PM, but only a few left. MEDS HELD/DISCONTINUED: BRIEF HOSPITAL COURSE: 72 year old F with multiple comorbidities including chronic heart failure with preserved EF, bilateral lower extremity pain/cellulitis, chronic A. fib on Xarelto admitted with generalized weakness for 3-4 weeks and bright red rectal bleed. Patient was been feeling progressively weak and had fall earlier on, came to the ED and got peña in the head in ER. Active management in the hospital was: 1. Acute GI bleed, off Xarelto, managed conservatively, HANDamp;H was stable, Dr. Alvarado saw her in the hospital, will follow up in the outpatient for colonoscopy. 2. Acute blood loss anemia secondary to GI bleed from Xarelto. She received 1 unit packed RBC transfusion, Hb remained stable, to be followed up in the outpatient. 3. Chronic A. fib with RVR, status post maze procedure, rate controlled, off Xarelto on account of GI bleed, discussed with cardiology, Dr. Childers, patient is okay to be off Xarelto as risks of bleeding outweighs risk of stroke. This was explained to the patient and she agreed. 4. Klebsiella pneumonia UTI, completed 5 days of IV ceftriaxone in the hospital. 5. Chronic heart failure with preserved EF, stable, as of acute exacerbation, on alternate day Lasix. 6. Peripheral arterial disease, bilateral lower extremity venous stasis ulcers, calciphylaxis/peripheral neuropathy chronic, started on prednisone taper for possible suspicion of pyoderma gangrenosum, will taper off steroids, wound nurse will follow-up in TCU 7. Diabetes mellitus type 2, blood sugars have been stable, on Accu-Cheks and insulin sliding scale (Copied from [employer] [facility]) Veronique Powell [employer] Cashier 01/09/2018 7:55 AM Signed Note copied into patient's progress note for TCM today. 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 [8222] Order(s):predniSONE (DELTASONE) 10 mg tabletTake 1 tablet by mouth once daily.Disp: Rfl: Prescriptions as of 01/01/2018 Sig: FLUOXETINE 20 MG CAPSULE Take 1 capsule by mouth once * GABAPENTIN 100 MG CAPSULE Take 100 mg by mouth four carlos* FUROSEMIDE 20 MG TABLET Take 1 tablet by mouth every * Patient taking differently: Take 20 mg by mouth once gilmar* METOPROLOL TARTRATE 25 MG TAB* Take 0.5 tablets by mouth twi* PREDNISONE 10 MG TABLET Take 1 tablet by mouth once d* RIVAROXABAN 15 MG TABLET Take 15 mg by mouth daily wit* SANTYL 250 UNIT/GRAM TOPICAL * Apply 1 application to affect* MORPHINE ER 15 MG TABLET,EXTE* Take 1 tablet by mouth every * ASPIRIN 81 MG TABLET,DELAYED * Take 1 tablet by mouth once d* COMPOUNDED PRESCRIPTION Thigh High Compression Stocki* Problem List As Of Date 01/01/2018 Noted Resolved Hypertension goal BP (blood pressure) < 150/90 *INVALID FOR* More... Rheumatoid arthritis of multiple sites with neg*INVALID FOR* More... 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 Other diseases of lung, not elsewhere classifie*INVALID FOR*02/11/2015 More... SLEEP APNEA NOS [G47.30] INVALID FOR*04/18/2006 Obesity, unspecified [E66.9] INVALID FOR*02/11/2015 Impaired fasting glucose [R73.01] INVALID FOR*02/27/2012 More... 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] INVALID FOR*02/11/2015 Candidal intertrigo [B37.2] INVALID FOR*02/11/2015 Intertrigo [L30.4] INVALID FOR*02/11/2015 Eczema Dermatitis and Other Eczema, due to Unsp*INVALID FOR*09/28/2016 Diabetes mellitus (HCC) [E11.9] INVALID FOR*01/05/2015 Venous insufficiency [I87.2] INVALID FOR*07/15/2015 Edema [R60.9] INVALID FOR*02/11/2015 Pain in joint, shoulder region [M25.519] INVALID FOR*02/11/2015 Disorders of bursae and tendons in shoulder reg*INVALID FOR*09/28/2016 Diabetes mellitus type 2, controlled [E11.9] INVALID FOR*02/11/2015 DM (diabetes mellitus), type 2 (HCC) [E11.9] INVALID FOR*07/15/2015 Venous insufficiency (chronic) (peripheral) [I8*INVALID FOR* More... Atrial fibrillation (HCC) [I48.91] INVALID FOR* More... Type 2 diabetes mellitus with diabetic chronic *INVALID FOR*01/06/2016 Lymphedema, not elsewhere classified [I89.0] INVALID FOR*05/17/2017 Type 2 diabetes mellitus with stage 3 chronic k*INVALID FOR* More... Pulmonary nodule [R91.1] INVALID FOR* More... Systolic congestive heart failure (HCC) [I50.20]INVALID FOR* More... Hydronephrosis [N13.30] INVALID FOR* UI (urinary incontinence) [R32] INVALID FOR* Patent ductus arteriosus [Q25.0] INVALID FOR* More... S/P Maze operation for atrial fibrillation [Z98*INVALID FOR* More... CKD (chronic kidney disease) stage 3, GFR 30-59*INVALID FOR* More... Anemia, unspecified [D64.9] INVALID FOR* Hypoxemia requiring supplemental oxygen [R09.02*INVALID FOR*10/19/2017 Hypercalcemia [E83.52] INVALID FOR* Hypervitaminosis D (rule out granulomatous dise*INVALID FOR* Venous stasis ulcers of both lower extremities *INVALID FOR* Depressive disorder [F32.9] INVALID FOR* Lumbar radiculopathy, chronic [M54.16] INVALID FOR* Gait abnormality [R26.9] INVALID FOR* Prescriptions ordered this encounter Disp Refills Start End PREDNISONE 10 MG TABLET 01/09/2018 Class: Med Update Route: ORAL Sig: Take 1 tablet by mouth once daily. Cosign required by MILLICENT BARRIOS ([facility])[[id number]] Encounter Status:Closed by VERONIQUE POWELL CMA on 01/09/18 BEDSIDE GLUCOSE Collected: 12/31/2017 Status: F Source: [place] 6:26 AM [facility] REPOSITORY TYPE CODE TESTS RESULT OUT OF RANGE REFERENCE UNITS LAB L501.080 70-110 mg/dL Normal BEDSIDE GLU 91 Result Comment: MANAGEMENT OF PATIENT CARE PER NURSING PROTOCOL Performed By: #### L501.080 #### [facility] Laboratory Point of Care [address] [place] [address] BEDSIDE GLUCOSE Collected: 12/30/2017 Status: F Source: [place] 6:40 AM [facility] REPOSITORY TYPE CODE TESTS RESULT OUT OF RANGE REFERENCE UNITS LAB L501.080 70-110 mg/dL Normal BEDSIDE GLU 86 Result Comment: MANAGEMENT OF PATIENT CARE PER NURSING PROTOCOL Performed By: #### L501.080 #### [facility] Laboratory Point of Care [address] [place] [address] BEDSIDE GLUCOSE Collected: 12/29/2017 Status: F Source: [place] 6:41 AM [facility] REPOSITORY TYPE CODE TESTS RESULT OUT OF RANGE REFERENCE UNITS LAB L501.080 70-110 mg/dL Normal BEDSIDE GLU 93 Result Comment: MANAGEMENT OF PATIENT CARE PER NURSING PROTOCOL Performed By: #### L501.080 #### [facility] Laboratory Point of Care [address] [place] [address] DISCHARGE SUMMARY Observed: 12/28/2017 Status: F Source: CEL[place] 8:44 PM [facility] REPOSITORY [facility] Medical Records Department [address] [place] [address] Discharge Summary 12/28/172038 MR#: [id number] Acct: [id number] Name: DI ZAPATA Rep #: [id number] : 1945 72 From: Ari Rainey MD PCP: Aaron Tidwell MD Status: ADM IN Location: [place] [address] Discharge Date and Diagnosis - Problem List Patient Problems: Active and Suspected Problems (Last Reviewed 12/26/17 @ 10:27 by Huang Alvarado MD) Weakness (Acute) Anemia (Acute) Hypokalemia (Acute) Date of Admission: 12/12/17 Date of Discharge: 12/31/17 - Primary Discharge Diagnosis Active and Suspected Problems (Last Reviewed 12/26/17 @ 10:27 by Huang Alvarado MD) Weakness (Acute) Anemia (Acute) Hypokalemia (Acute) - Secondary Discharge Diagnosis Chronic Problems (Last Reviewed 12/26/17 @ 10:27 by Huang Alvarado MD) Other prepleater (current) drug therapy (Chronic) Abnormal screening CT of chest (Chronic) LYN on CPAP (Chronic) Acute on chronic diastolic (congestive) heart failure (Chronic) Calcinosis (Chronic) Edema (Chronic) Pulmonary hypertension (Chronic) Atrial fibrillation (Chronic) Chronic diastolic heart failure (Chronic) Diabetes mellitus (Chronic) Chronic kidney disease (Chronic) Lumbar spinal stenosis (Chronic) PAOD (peripheral arterial occlusive disease) (Chronic) Venous stasis ulcer (Chronic) Depression (Chronic) Neuropathic pain (Chronic) Edema, lower extremity (Chronic) Pulmonary hypertension, secondary (Chronic) History of cardiac radiofrequency ablation (RFA) (Chronic) 1st part of MAZE procedure Lt Atrial Ablation 01/12/17 @ [facility] Localized edema (Chronic) Heart failure with 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 (Chronic) MCFP current use of anticoagulant (Chronic) Chronic atrial fibrillation (Chronic) DCCV 10/10, 10/2015; MAZE procedure @ [facility] 01/12/2017; Status post placement of implantable loop recorder (Chronic) Loop recorder implant 01/03/[address] 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 calciphylaxis vs. erythema nodosum vs. dermatomyositis vs. panniculitis Mass of soft tissue of right lower extremity (Chronic) right inner upper thigh - ? calciphylaxis vs. erythema nodosum vs. dermatomyositis vs. panniculitis Hospital Course and Treatment Imaging Results: 12/12/17 Dinner Diet: Calorie Controlled Food consistency:: Regular Liquid Consistency:: Regular/Thin Is pt able to select menu?: Yes Diet Comments: SUGAR FREE LIQUIDS, LOW GASTRIC STIMULANTS How many daily calories?: 1600 calorie Clinical Impression(s) from Imaging Studies KUB X-Ray 12/18/17 08:22 IMPRESSION: Multiple right-sided rib fractures. Patchy bilateral airspace disease. Small right pleural effusion. Nonobstructive abdominal bowel gas pattern. 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 Pneumoniae UTI, pyoderma gangrenosum of legs, admitted to TCU for debility, here for rehabilitation, strengthening, wound care, prior to discharge home with spouse. Ulcers of legs presumed pyoderma gangrenosum, improved with steroids, strongly consider dermatology referral for biopsy, definitive diagnosis. Resident has atrial fibrillation, currently off Xarelto due to GI bleed, consider restarting anticoagulation with lower risk anticoagulant. [] Discharge home with spouse, and Home health services. Discharge Diet: No Restrictions Discharge Activity: Return to Normal Activity, May Shower, Use Walker Weight Bearing Status: Weight bearing as tolerated Call your doctor if you observe: Fever of 101 or Higher, Inability to urinate, Inability to have a bowel movement, Shortness of breath, Chest pain, Uncontrolled pain Home Medications: Medications to take at Discharge Gabapentin [Neurontin] 100 mg PO 4X/DAY 09/29/17 Fluoxetine [Prozac] 20 mg PO DAILY 09/30/17 furosemide 40 mg tablet 20 mg PO QODAY tab 10/11/17 Ensure Clear 120 ml PO 4X/DAY 12/12/17 Metoprolol Tartrate [Lopressor (beta alok)] 25 mg PO BID 12/12/17 Potassium Chloride [K-Tab ER] 10 meq PO QDAY 12/12/17 Acetaminophen [Tylenol] 1,000 mg PO Q8H PRN PRN tablet 12/28/17 Iron Polysaccharide Complex [Ferrex 150] 150 mg PO DAILYCM #30 cap 12/28/17 Menthol/Lanolin/Calamine/Znox [Calmoseptine Ointment] 1 applic TOPICAL 0600,2200 tube 12/28/17 Nystatin Powder [Mycostatin Powder] 1 applic TOPICAL 0600,2200 bottle 12/28/17 Oxycodone CR [Oxycontin] 15 mg PO DAILY #14 tablet 12/28/17 Oxycodone [Oxyir] 5 mg PO Q4H PRN PRN 5 Days #42 tab 04/05/18 Pantoprazole Sodium [Protonix] 40 mg PO BID #60 tab 12/28/17 Polyethylene Glycol 3350 [Miralax] 17 gm PO DAILY PRN #30 packet 12/28/17 Prednisone [Deltasone] See Taper PO DAILY #30 tab 12/28/17 Following Prescrptions Were Given to Patient: Oxycodone [Oxyir] 5 mg PO Q4H PRN PRN 5 Days #42 tab PRN Reason: Breakthrough Pain (>4/10) Iron Polysaccharide Complex [Ferrex 150] 150 mg PO DAILYCM #30 cap Oxycodone CR [Oxycontin] 15 mg PO DAILY #14 tablet Polyethylene Glycol 3350 [Miralax] 17 gm PO DAILY PRN #30 packet PRN Reason: Constipation Prednisone [Deltasone] See Taper PO DAILY #30 tab Pantoprazole Sodium [Protonix] 40 mg PO BID #60 tab Primary Care Physician: Aaron Tidwell MD [Primary Care Provider] - Please follow up with your Primary Care Physician in: 1 week. Please Follow Up With: Huang Alvarado MD When: [phone] Please Follow Up With: Epifanio Childers MD When: [phone] Please Follow Up With: Aaron Tidwell MD When: [phone] Please Follow Up With: Shiloh @ [facility] When: [phone] Please Follow Up With: [facility] When: [phone] Disposition: Home with Home Health Minutes spent on discharge:: 35 Patient Condition:: Stable Medical Necessity - Tobacco Use Smoking Status: Never smoker Tobacco Use: Non-smoker Meaningful Use Info Meaningful Use Diagnoses (Choose all that apply): None applicable 12/28/172043 <Electronically signed by Ari Rainey MD> Date Ari Rainey MD Cosigner Signature (if applicable): Date CC: Ari Rainey MD; Aaron Tidwell MD Signed HOME HEALTH PROGRESS Observed: 12/28/2017 Status: F Source: [place] NOTE 8:44 PM [facility] REPOSITORY [facility] Medical Records Department [address] [place] [address] Home Health Progress Note [id number] Encounter Encounter Date: 12/28/172043 MR#: [id number] Acct: [id number] Name: DI ZAPATA Rep #: [id number] : 1945 72 From: Ari Rainey MD PCP: Aaron Tidwell MD Status: ADM IN Location: [place] [address] Home Health Note - Plan Overview of reason of hospitalization: The patient is a 72 year old Female with below past medical history hospitalized for gastrointestinal bleeding secondary to Xarelto coagulopathy, complicated by anemia requiring 1 unit PRBC transfusion, K. Pneumoniae UTI, pyoderma gangrenosum of legs, admitted to TCU for debility, here for rehabilitation, strengthening, wound care, prior to discharge home with spouse. Ulcers of legs presumed pyoderma gangrenosum, improved with steroids, strongly consider dermatology referral for biopsy, definitive diagnosis. Resident has atrial fibrillation, currently off Xarelto due to GI bleed, consider restarting anticoagulation with lower risk anticoagulant. [] Discharge home with spouse, and Home health services. Problems: Patient was seen for (Last Reviewed 12/26/17 @ 10:27 by Huang Alvarado MD) Weakness (Acute) Anemia (Acute) Edema (Chronic) Pulmonary hypertension (Chronic) Atrial fibrillation (Chronic) Chronic diastolic heart failure (Chronic) Diabetes mellitus (Chronic) Chronic kidney disease (Chronic) Lumbar spinal stenosis (Chronic) PAOD (peripheral arterial occlusive disease) (Chronic) Venous stasis ulcer (Chronic) Depression (Chronic) Neuropathic pain (Chronic) Hypokalemia (Acute) Complete List of Medical Problems (Last Reviewed 12/26/17 @ 10:27 by Huang Alvarado MD) Other intermediate (current) drug therapy (Chronic) Abnormal screening CT of chest (Chronic) LYN on CPAP (Chronic) Acute on chronic diastolic (congestive) heart failure (Chronic) Calcinosis (Chronic) Lower GI bleed (Acute) Chronic A. fib on Xarelto (Acute) Recurrent falls (Acute) Generalized weakness (Acute) Weakness (Acute) Anemia (Acute) Edema (Chronic) Pulmonary hypertension (Chronic) Atrial fibrillation (Chronic) Chronic diastolic heart failure (Chronic) Diabetes mellitus (Chronic) Chronic kidney disease (Chronic) Lumbar spinal stenosis (Chronic) PAOD (peripheral arterial occlusive disease) (Chronic) Venous stasis ulcer (Chronic) Depression (Chronic) Neuropathic pain (Chronic) Hypokalemia (Acute) Edema, lower extremity (Chronic) Pulmonary hypertension, secondary (Chronic) History of cardiac radiofrequency ablation (RFA) (Chronic) Dyspnea on exertion (Acute) Localized edema (Chronic) Heart failure with 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 (Chronic) 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 (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) Chronic atrial fibrillation (Chronic) Status post placement of implantable loop recorder (Chronic) History of maze procedure (Chronic) Other secondary pulmonary hypertension (Chronic) Chronic diastolic (congestive) heart failure (Chronic) GI bleeding (Acute) Symptomatic anemia (Chronic) Hypertension (Chronic) Type 2 diabetes mellitus (Chronic) Lung nodule (Chronic) Chronic kidney disease, stage 3 (Chronic) Shortness of breath (Acute) 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) PAD (peripheral artery disease) (Chronic) Venous stasis ulcer of left lower leg with edema of left lower leg (Chronic) Venous stasis ulcer of right lower leg with edema of right lower leg (Chronic) Arthralgia (Chronic) Myalgia (Chronic) Mass of soft tissue of left lower extremity (Chronic) Mass of soft tissue of right lower extremity (Chronic) - Requirements and Reasons Disciplines Needed/Ordered: Prison Reason for Disciplines: Disease Specific Monitoring/education, Medication Management/Knowledge Deficit, Wound Care Related To: Unsteady Gait/Balance, Fall Risk Patient is unable to leave the home: Without Aid of Supportive Devices (crutches, cane, wheelchair, walker), Without the assistance of another person 12/28/172043 <Electronically signed by Ari Rainey MD> Date Ari Rainey MD Cosigner Signature (if indicated): Date CC: Signed DISCHARGE INSTRUCTION Observed: 12/28/2017 Status: F Source: CELIO 8:39 PM [facility] REPOSITORY [facility] Medical Records Department [address] [place] [address] Instructions for Home/Discharge Instructions 12/28/172036 MR#: [id number] Acct: [id number] Name: DI ZAPATA Rep #: [id number] : 1945 72 From: Ari Rainey MD PCP: Aaron Tidwell MD Status: ADM IN - Discharge Diagnoses Current Active Problems: Current Active and Chronic Problems (Last Reviewed 12/26/17 @ 10:27 by Huang Alvarado MD) Weakness (Acute) Anemia (Acute) Edema (Chronic) Pulmonary hypertension (Chronic) Atrial fibrillation (Chronic) Chronic diastolic heart failure (Chronic) Diabetes mellitus (Chronic) Chronic kidney disease (Chronic) Lumbar spinal stenosis (Chronic) PAOD (peripheral arterial occlusive disease) (Chronic) Venous stasis ulcer (Chronic) Depression (Chronic) Neuropathic pain (Chronic) Hypokalemia (Acute) You will use the following diet at home:: No restrictions, Regular Your food should be the consistency of: Regular Your liquids should be the consistency of: Regular/Thin Discharge Activity: Return to Normal Activity, May Shower, Use Walker Weight Bearing Status: Weight bearing as tolerated Call your doctor if you observe: Fever of 101 or Higher, Inability to urinate, Inability to have a bowel movement, Shortness of breath, Chest pain, Uncontrolled pain Allergies/Adverse Reactions: Allergies amlodipine besylate [From Norvasc] Allergy (Verified 12/26/17 10:14) Unknown Shortness of breath ceftriaxone Allergy (Verified 12/26/17 10:14) Rash doxazosin mesylate [From Cardura] Allergy (Verified 12/26/17 10:14) Unknown Pt doesn't remember doxycycline Allergy (Verified 12/26/17 10:14) Unknown Pt doesn't remember enalapril maleate [From Vasotec] Allergy (Verified 12/26/17 10:14) Rash enalaprilat dihydrate [From Vasotec] Allergy (Verified 12/26/17 10:14) Rash hydroxyzine HCl [From Vistaril] Allergy (Verified 04/03/18 10:14) Rash hydroxyzine pamoate [From Vistaril] Allergy (Verified 12/26/17 10:14) Rash meperidine HCl [From Demerol] Allergy (Verified 12/26/17 10:14) Rash Sulfa (Sulfonamide Antibiotics) Allergy (Verified 12/26/17 10:14) Hives sulfamethoxazole [From Bactrim] Allergy (Verified 12/26/17 10:14) Hives trimethoprim [From Bactrim] Allergy (Verified 12/26/17 10:14) Hives Medications to take at Discharge Gabapentin [Neurontin] 100 mg PO 4X/DAY 09/29/17 Fluoxetine [Prozac] 20 mg PO DAILY 09/30/17 furosemide 40 mg tablet 20 mg PO QODAY tab 10/11/17 Ensure Clear 120 ml PO 4X/DAY 12/12/17 Metoprolol Tartrate [Lopressor (beta alok)] 25 mg PO BID 12/12/17 Potassium Chloride [K-Tab ER] 10 meq PO QDAY 12/12/17 Acetaminophen [Tylenol] 1,000 mg PO Q8H PRN PRN tablet 12/28/17 Iron Polysaccharide Complex [Ferrex 150] 150 mg PO DAILYCM #30 cap 12/28/17 Menthol/Lanolin/Calamine/Znox [Calmoseptine Ointment] 1 applic TOPICAL 0600,2200 tube 12/28/17 Nystatin Powder [Mycostatin Powder] 1 applic TOPICAL 0600,2200 bottle 12/28/17 Oxycodone CR [Oxycontin] 15 mg PO DAILY #14 tablet 12/28/17 Oxycodone [Oxyir] 5 mg PO Q4H PRN PRN 5 Days #42 tab 12/28/17 Pantoprazole Sodium [Protonix] 40 mg PO BID #60 tab 12/28/17 Polyethylene Glycol 3350 [Miralax] 17 gm PO DAILY PRN #30 packet 12/28/17 Prednisone [Deltasone] See Taper PO DAILY #30 tab 12/28/17 The following prescriptions were given: Oxycodone [Oxyir] 5 mg PO Q4H PRN PRN 5 Days #42 tab PRN Reason: Breakthrough Pain (>4/10) Iron Polysaccharide Complex [Ferrex 150] 150 mg PO DAILYCM #30 cap Oxycodone CR [Oxycontin] 15 mg PO DAILY #14 tablet Polyethylene Glycol 3350 [Miralax] 17 gm PO DAILY PRN #30 packet PRN Reason: Constipation Prednisone [Deltasone] See Taper PO DAILY #30 tab Pantoprazole Sodium [Protonix] 40 mg PO BID #60 tab Primary Care Physician: Aaron Tidwell MD [Primary Care Provider] - Please follow up with your Primary Care Physician in: 1 week. Please Follow Up With: Huang Alvarado MD When: [phone] Please Follow Up With: Epifanio Childers MD When: [phone] Please Follow Up With: Aaron Tidwell MD When: [phone] Please Follow Up With: Shil[facility] When: [phone] Please Follow Up With: [facility] When: [phone] Proposed Discharge Date: 12/31/17 12/28/172038 <Electronically signed by Ari Rainey MD> Date Ari Rainey MD CC: Aaron Tidwell MD BEDSIDE GLUCOSE Collected: 12/28/2017 Status: F Source: CELIO 6:41 AM [facility] REPOSITORY TYPE CODE TESTS RESULT OUT OF RANGE REFERENCE UNITS LAB L501.080 70-110 mg/dL Normal BEDSIDE GLU 73 Result Comment: MANAGEMENT OF PATIENT CARE PER NURSING PROTOCOL Performed By: #### L501.080 #### [facility] Point of Care [address] [place] [address] BEDSIDE GLUCOSE Collected: 12/27/2017 Status: F Source: CELIO 11:40 AM [facility] REPOSITORY TYPE CODE TESTS RESULT OUT OF REFERENCE UNITS RANGE LAB L501.080 70-110 mg/dL High BEDSIDE GLU 126 Result Comment: MANAGEMENT OF PATIENT CARE PER NURSING PROTOCOL Performed By: #### L501.080 #### [facility] Point of Care [address] [place] [address] BEDSIDE GLUCOSE Collected: 12/27/2017 Status: F Source: CELIO 6:21 AM [facility] REPOSITORY TYPE CODE TESTS RESULT OUT OF RANGE REFERENCE UNITS LAB L501.080 70-110 mg/dL Normal BEDSIDE GLU 78 Result Comment: MANAGEMENT OF PATIENT CARE PER NURSING PROTOCOL Performed By: #### L501.080 #### [facility] Point of Care [address] [place] [address] BASIC METABOLIC Collected: 12/27/2017 Status: F Source: CELIO PROFILE (BMP) 5:10 AM [facility] REPOSITORY TYPE CODE TESTS RESULT OUT OF RANGE REFERENCE UNITS LAB L501.0100 74-106 mg/dL Normal GLU 75 Result Comment: Please note revised GLUCOSE reference range effective 2017. LAB L501.1000 7-18 mg/dL High BUN 22 LAB L501.1100 0.55-1.02 mg/dL High CREAT,SERUM 1.07 Result Comment: The validity of the calculated GFR AND GFRAA in patients over 70 years has not been determined. Clinical correlation is essential. LAB L501.1110 >60 mL/min Low EST GFR 54 Result Comment: Non- GFR Calc LAB L501.1115 >60 mL/min Normal EST GFR - AA 65 Result Comment: GFR Calc LAB L501.1255 ml/min Normal Estimated CRCL 39.89 LAB L501.1300 10-20 RATIO High BUN/CRE 20.6 LAB L501.2200 8.5-10 mg/dL Low .1 CA 8.0 LAB L501.5300 136-14 mmol/L Normal 5 NA 141 LAB L501.5600 3.5-5. mmol/L Normal 1 K 4.7 LAB L501.5900 98-107 mmol/L High CL 108 LAB L501.6100 21.0-3 mmol/L Normal 2.0 CO2 27.0 LAB L501.6200 5-15 Normal GAP 6 Performed By: #### L500.2500 #### [facility] [address] [place], [place], [id number] CBC W/DIFF, AUTOMATED Collected: 12/27/2017 Status: F Source: CELIO 5:10 AM [facility] REPOSITORY TYPE CODE TESTS RESULT OUT OF RANGE REFERENCE UNITS LAB L100.1000 4.4-11.0 K/mm3 Normal WBC 10.4 LAB L100.1200 4.2-5.4 M/mm3 Low RBC 3.64 LAB L100.1300 12.0-15.0 g/dl Low HGB 8.8 LAB L100.1400 37-47 % Low HCT 28.5 LAB L100.1500 81-99 fL Low MCV 78.3 LAB L100.1600 27.0-32.0 pg Low MCH 24.2 LAB L100.1700 32-36 g/gl Low MCHC 30.9 LAB L100.1810 11.6-14.6 % High RDW CV 26.4 LAB L100.1820 35.1-43.9 fl High RDW SD 72.5 LAB L100.1900 150-450 K/mm3 Normal PLT 234 LAB L100.2000 6.2-12.0 fl Normal MPV 10.0 LAB L100.2100 47-70 % High NEUT% 77.0 LAB L100.2200 19-41 % Low LY% 14.5 LAB L100.2300 0-10 % Normal MONO% 7.1 LAB L100.2400 0-5 % Normal EO% 0.9 LAB L100.2500 0-1 % Normal BASO% 0.1 LAB L100.2550 0.0-0.9 % Normal IM GRAN % 0.400 Result Comment: IG% - Immature Granulocytes (promyelocytes, myelocytes and metamyelocytes) > 1% indicates that a LEFT SHIFT is Present. LAB L100.2620 2.0-7.7 X10 3/uL Absolute Neut High 8.0 LAB L100.2720 0.83-4.51 X10 3/ul Absolute Lymph Normal 1.50 LAB L100.4500 SMEAR COMMENT Normal SCAN LAB L100.7300 ANISO Normal 1+ LAB L100.7500 POLYCHROMASIA Normal 1+ LAB L100.7600 HYPOCHROMASIA Normal 1+ LAB L100.7700 MICROCYTES Normal 1+ Performed By: #### L100.0100 #### [facility] [address] [place], [place], [address] SURGERY VISIT REPORT Observed: 12/26/2017 Status: F Source: [place] 10:29 AM [facility] REPOSITORY [facility] [address] [place] [address] OFFICE VISIT Date of Service: 12/26/17 MR#: [id number] Acct: [id number] Name: DI ZAPATA Rep #: [id number] : 1945 Provider: Huang Alvarado MD Age/Sex: 72/F Location: [facility] Status: Signed Intake Vital Signs12/26/17 Height 5 ft 3 in 12/26/17 Weight: 172 lb Intake Visit Reasons: F/U GI BLEED/[facility] Chief Complaint: GI Bleed Census Enumerator Required: No Is patient in pain?: No Allergies amlodipine besylate [From Norvasc] Allergy (Verified 12/26/17 10:14) Unknown ceftriaxone Allergy (Verified 12/26/17 10:14) Rash doxazosin mesylate [From Cardura] Allergy (Verified 12/26/17 10:14) Unknown doxycycline Allergy (Verified 12/26/17 10:14) Unknown enalapril maleate [From Vasotec] Allergy (Verified 12/26/17 10:14) Rash enalaprilat dihydrate [From Vasotec] Allergy (Verified 12/26/17 10:14) Rash hydroxyzine HCl [From Vistaril] Allergy (Verified 12/26/17 10:14) Rash hydroxyzine pamoate [From Vistaril] Allergy (Verified 12/26/17 10:14) Rash meperidine HCl [From Demerol] Allergy (Verified 12/26/17 10:14) Rash Sulfa (Sulfonamide Antibiotics) Allergy (Verified 12/26/17 10:14) Hives sulfamethoxazole [From Bactrim] Allergy (Verified 12/26/17 10:14) Hives trimethoprim [From Bactrim] Allergy (Verified 12/26/17 10:14) Hives Medications Gabapentin [Neurontin] 100 mg PO 4X/DAY 09/29/17 [History Confirmed 12/26/17] Fluoxetine [Prozac] 20 mg PO DAILY 09/30/17 [History Confirmed 12/26/17] furosemide 40 mg tablet 20 mg PO QODAY tab 10/11/17 [History Confirmed 12/26/17] Ensure Clear 120 ml PO 4X/DAY 12/12/17 [History Confirmed 12/26/17] Metoprolol Tartrate [Lopressor (beta alok)] 25 mg PO BID 12/12/17 [History Confirmed 12/26/17] Oxycodone CR [Oxycontin] 15 mg PO DAILY 12/12/17 [History Confirmed 12/26/17] Oxycodone [Oxyir] 5 mg PO Q4H PRN PRN 5 Days #20 tab 12/12/17 [Rx Confirmed 12/26/17] Pantoprazole Sodium [Protonix] 40 mg PO BID 12/12/17 [History Confirmed 12/26/17] Potassium Chloride [K-Tab ER] 10 meq PO QDAY 12/12/17 [History Confirmed 12/26/17] Prednisone [Deltasone] See Taper PO DAILY 12/12/17 [History Confirmed 12/26/17] Senna/Docusate Sodium [Senokot-S] 2 tab PO BID PRN #30 tab 12/12/17 [Rx Confirmed 12/26/17] PFSH Medical History Pulmonary hypertension, secondary (Chronic) Dyspnea on exertion (Acute) 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 (Chronic) Chronic atrial fibrillation (Chronic) Status post placement of implantable loop recorder (Chronic) Other secondary pulmonary hypertension (Chronic) Chronic diastolic (congestive) heart failure (Chronic) Symptomatic anemia (Chronic) Hypertension (Chronic) Type 2 diabetes mellitus (Chronic) Lung nodule (Chronic) Chronic kidney disease, stage 3 (Chronic) Shortness of breath (Acute) PAD (peripheral artery disease) (Chronic) Venous stasis ulcer of left lower leg with edema of left lower leg (Chronic) Venous stasis ulcer of right lower leg with edema of right lower leg (Chronic) GERD (gastroesophageal reflux disease) (Acute) Hypersomnia (Acute) LYN (obstructive sleep apnea) (Acute) Surgical History History of cardiac radiofrequency ablation (RFA) (Chronic) History of maze procedure (Chronic) History of loop recorder (Resolved) Family History Mother Diabetes Brother Diabetes Myocardial infarction Cancer multiple melanoma Son Hypertension Daughter Arthritis Diabetes Hypertension Brother Cancer lymphoma Social History Smoking Status: Never smoker alcohol intake: never substance use type: does not use caffeine: Yes Type: coffee, tea what type of physical activity do you participate in: other details: tredmill frequency: daily duration: 15-30 minutes/day seatbelt use: always do you feel safe at home: Yes HPI HPI HPI: DI ZAPATA, is a 72 F who presents to the office today for follow-up after initial consultation and was [facility] emergency department. She was admitted at that time and found to have a hemoglobin of 8.6 and an INR of 8 with a PTT of 91.5. She was also noted to be hypotensive with a heart rate of 94 and at that point we treated her medically and I did not offer her any endoscopies. She improved to the point where she was able to be discharged to the TCU. In the TCU she is being treated for her weakness GI bleed and UTI. Since it was difficult for her to be on Coumadin. She was subsequently taken off of that and is not on any anticoagulation due to her difficulty with Coumadin she is on rate limiting medications. She presents today for follow-up and further discussion about future endoscopies. She has not had any further blood loss that she can recall she is not having any nausea or vomiting. She is experiencing some diarrhea. The color of her diarrhea is green. She is not complaining of any abdominal pain. ROS General General: Yes weight change and fatigue; no appetite, colon cancer, breast cancer or weakness HEENT HEENT: Yes difficulty swallowing and eye surgery; no eye injury, swollen glands or hoarseness Endo Endocrine: Yes diabetes mellitus; no thyroid disease, thyroid cancer, Hair loss, heat intolerance or cold intolerance Skin Skin: Yes changing moles; no rash Breast Breast: No left breast lump, right breast lump, nipple discharge, breast pain, abnormal mammogram, abnormal US or breast enlargement Musc Musculoskeletal: Yes back problems, arthritis, rheumatoid arthritis, gout and joint pain Cardio Cardiovascular: Yes murmur, heart disease, atrial fibrillation and high blood pressure; no pacemaker, heart attack, heart stent, palpitations, shortness of breat with exertion or chest pain Psych Psychiatric: Yes depression; no anxiety or hearing voices Resp Respiratory: Yes shortness of breath, Yes sleep apnea, Yes cough, No COPD, Yes asthma, No emphysema, No wheezing Gastro Gastrointestinal: No abdominal pain, No nausea or vomiting, No diarrhea, No constipation, No blood in stool, No acid reflux, Yes hemorrhoids, Yes ulcers, No gallbladder problem, No black,tarry stools Celso Hematologic: No blood thinners, No blood disorders, Yes bleeding, No anemia, No blood clots Neuro Neurologic: No weakness Exam Chest Breast Palpation: No nipple discharge Resp Effort AND Inspection: decreased respiratory effort Auscultation: bronchial breath sounds Cardio Rate: abnormal rate Rhythm: abnormal rhythm irregularly irregular Heart Sounds: murmur GI Other: Her abdomen is soft and nontender nondistended there is no rebound guarding or peritoneal signs identified Assessment AND Plan Problems 1. Lower GI bleed K92.2 Plan Patient is going to see Dr. Childers in about 3 months. I do not see any benefit of doing any endoscopies on her at this time. I believe that it would benefit her to continue to work hard at [facility] [employer] [facility] and then at the three-month palmer to side if endoscopies pose a significant risk to her before we do them. Coding Level of Care Code Off vis,est,level 3 Diagnoses Lower GI bleed K92.2 12/26/17 1029 <Electronically signed by Huang Alvarado MD> Date Huang Alvarado MD Cosigner Signature: Date (if applicable) CC: Epifanio Childers MD; Aaron Tidwell MD BEDSIDE GLUCOSE Collected: 12/26/2017 Status: F Source: CELIO 6:20 AM [facility] REPOSITORY TYPE CODE TESTS RESULT OUT OF RANGE REFERENCE UNITS LAB L501.080 70-110 mg/dL Normal BEDSIDE GLU 90 Result Comment: MANAGEMENT OF PATIENT CARE PER NURSING PROTOCOL Performed By: #### L501.080 #### [facility] [place] [address] 12 LEAD ELECTROCARDIOGRAM Observed: 12/25/2017 Status: F Source: CELIO 2:08 PM [facility] REPOSITORY [facility] Cardiovascular Services [address] [place] [address] 12 Lead EKG 12/11/17 0539 MR#: [id number] Acct: [id number] Name: DI ZAPATA Rep #: [id number] : 1945 72 From: Epifanio Childers MD Attending Dr: Christina Glover MD Status: DIS IN Ordering Dr: Criss Valdez Date: 12/11/17 Location: [facility] Sex: F C Admitted: 12/07/17 Test Reason : AM EKG Blood Pressure : / mmHG Vent. Rate : 091 BPM Atrial Rate : 105 BPM P-R Int : 000 ms QRS Dur : 096 ms QT Int : 344 ms P-R-T Axes : 000 058 -67 degrees QTc Int : 423 ms Atrial fibrillation Nonspecific ST and T wave abnormality , probably digitalis effect Abnormal ECG When compared with ECG of 07-DEC-2017 06:41, MANUAL COMPARISON REQUIRED, DATA IS UNCONFIRMED Confirmed by EPIFANIO CHILDERS MD ([id number]), acquisitions editor CARLENE NELSON ([id number]) on 12/25/2017 2:07:44 PM Referred By: Meche Delvalle Confirmed By:EPIFANIO CHILDERS MD 12/25/17 1407 Date Epifanio Childers MD CC: Christina Glover MD; Criss Valdez; Aaron Tidwell MD Signed BEDSIDE GLUCOSE Collected: 12/25/2017 Status: F Source: CELIO 6:35 AM [facility] REPOSITORY TYPE CODE TESTS RESULT OUT OF RANGE REFERENCE UNITS LAB L501.080 70-110 mg/dL Normal BEDSIDE GLU 97 Result Comment: MANAGEMENT OF PATIENT CARE PER NURSING PROTOCOL Performed By: #### L501.080 #### [facility] Point of Care [address] [place] [address] BEDSIDE GLUCOSE Collected: 12/24/2017 Status: F Source: CELIO 7:00 AM [facility] REPOSITORY TYPE CODE TESTS RESULT OUT OF RANGE REFERENCE UNITS LAB L501.080 70-110 mg/dL Normal BEDSIDE GLU 100 Result Comment: MANAGEMENT OF PATIENT CARE PER NURSING PROTOCOL Performed By: #### L501.080 #### [facility] Point of Care [address] [place] [address] BEDSIDE GLUCOSE Collected: 12/23/2017 Status: F Source: CELIO 6:24 AM [facility] REPOSITORY TYPE CODE TESTS RESULT OUT OF RANGE REFERENCE UNITS LAB L501.080 70-110 mg/dL Normal BEDSIDE GLU 102 Result Comment: MANAGEMENT OF PATIENT CARE PER NURSING PROTOCOL Performed By: #### L501.080 #### [facility] Point of Care [address] [place] [address] BEDSIDE GLUCOSE Collected: 12/22/2017 Status: F Source: CELIO 6:38 AM [facility] REPOSITORY TYPE CODE TESTS RESULT OUT OF RANGE REFERENCE UNITS LAB L501.080 70-110 mg/dL Normal BEDSIDE GLU 105 Result Comment: MANAGEMENT OF PATIENT CARE PER NURSING PROTOCOL Performed By: #### L501.080 #### [facility] Point of Care [address] [place] [address] BEDSIDE GLUCOSE Collected: 12/21/2017 Status: F Source: CELIO 6:30 AM [facility] REPOSITORY TYPE CODE TESTS RESULT OUT OF RANGE REFERENCE UNITS LAB L501.080 70-110 mg/dL Normal BEDSIDE GLU 99 Result Comment: MANAGEMENT OF PATIENT CARE PER NURSING PROTOCOL Performed By: #### L501.080 #### [facility] Point of Care [address] [place] [address] BEDSIDE GLUCOSE Collected: 12/20/2017 Status: F Source: CELIO 8:48 PM [facility] REPOSITORY TYPE CODE TESTS RESULT OUT OF REFERENCE UNITS RANGE LAB L501.080 70-110 mg/dL High BEDSIDE GLU 182 Result Comment: MANAGEMENT OF PATIENT CARE PER NURSING PROTOCOL Performed By: #### L501.080 #### [facility] Point of Care [address] [place] [address] BEDSIDE GLUCOSE Collected: 12/20/2017 Status: F Source: CELIO 4:58 PM [facility] REPOSITORY TYPE CODE TESTS RESULT OUT OF REFERENCE UNITS RANGE LAB L501.080 70-110 mg/dL High BEDSIDE GLU 144 Result Comment: MANAGEMENT OF PATIENT CARE PER NURSING PROTOCOL Performed By: #### L501.080 #### [facility] Point of Care [address] [place] [address] BEDSIDE GLUCOSE Collected: 12/20/2017 Status: F Source: CELIO 11:30 AM [facility] REPOSITORY TYPE CODE TESTS RESULT OUT OF REFERENCE UNITS RANGE LAB L501.080 70-110 mg/dL High BEDSIDE GLU 128 Result Comment: MANAGEMENT OF PATIENT CARE PER NURSING PROTOCOL Performed By: #### L501.080 #### [facility] Point of Care [address] [place] [address] BEDSIDE GLUCOSE Collected: 12/20/2017 Status: F Source: CELIO 6:34 AM [facility] REPOSITORY TYPE CODE TESTS RESULT OUT OF RANGE REFERENCE UNITS LAB L501.080 70-110 mg/dL Normal BEDSIDE GLU 80 Result Comment: MANAGEMENT OF PATIENT CARE PER NURSING PROTOCOL Performed By: #### L501.080 #### [facility] Point of Care [address] [place] [address] BEDSIDE GLUCOSE Collected: 12/19/2017 Status: F Source: CELIO 9:05 PM [facility] REPOSITORY TYPE CODE TESTS RESULT OUT OF REFERENCE UNITS RANGE LAB L501.080 70-110 mg/dL High BEDSIDE GLU 148 Result Comment: Dr Orders Followed MANAGEMENT OF PATIENT CARE PER NURSING PROTOCOL Performed By: #### L501.080 #### [facility] Point of Care [address] [place] [address] CARDIOLOGY VISIT Observed: 12/19/2017 Status: F Source: CELIO REPORT 5:02 PM [facility] REPOSITORY [facility] [address] [place] [address] OFFICE VISIT Date of Service: 12/19/17 MR#: [id number] Acct: [id number] Name: DI ZAPATA Nazario Rep #: [id number] : 1945 Provider: Gosia Lawson Age/Sex: 72/F Location: [facility] Status: Signed HPI HPI Details: DI ZAPATA, is a 72 F who presents to the office today for a cardiovascular follow-up. She has a history of persistent atrial fibrillation and hypertension. Patient is currently in TCU for a hospital stay for weakness, GI bleed, UTI. She previously was on Coumadin however it was difficult to manage her INRs. She was then switched to Xarelto. She recently had a few falls and then developed a GI bleed. Prior to her hospital stay she was being seen at the wound center for lower extremity ulcerations. Pt sts that she feels fatigued but it is better than before. She feels that she has less movement in her right are and leg. She feels that this is related to her leg ulcerations on her edema. She has had a neuro workup. She does not have any chest pain. She is exercising in TCU. She has not had any palpitations that she is aware of. She does have positional dizziness. She has not had any syncope. She does have SOB since being in TCU. It is difficult to update patient's medication list in 2 to her being in TCU on the acute side. Her current cardiac medications are furosemide 20 mg daily, potassium 10 mEq daily and metoprolol 25 mg twice a day. Intake Vital Signs12/19/17 Height 5 ft 3 in 12/19/17 Weight: 172 lb Intake Visit Reasons: still in TCU - they made the appt Census Enumerator Required: No Accompanied by: None Is patient in pain?: Yes (right leg, dull ache) Pain scale (1-10): 5 Allergies amlodipine besylate [From Norvasc] Allergy (Verified 12/19/17 09:15) Unknown ceftriaxone Allergy (Verified 12/19/17 09:15) Rash doxazosin mesylate [From Cardura] Allergy (Verified 12/19/17 09:15) Unknown doxycycline Allergy (Verified 12/19/17 09:15) Unknown enalapril maleate [From Vasotec] Allergy (Verified 12/19/17 09:15) Rash enalaprilat dihydrate [From Vasotec] Allergy (Verified 12/19/17 09:15) Rash hydroxyzine HCl [From Vistaril] Allergy (Verified 12/19/17 09:15) Rash hydroxyzine pamoate [From Vistaril] Allergy (Verified 12/19/17 09:15) Rash meperidine HCl [From Demerol] Allergy (Verified 12/19/17 09:15) Rash Sulfa (Sulfonamide Antibiotics) Allergy (Verified 12/19/17 09:15) Hives sulfamethoxazole [From Bactrim] Allergy (Verified 12/19/17 09:15) Hives trimethoprim [From Bactrim] Allergy (Verified 12/19/17 09:15) Hives Medications Gabapentin [Neurontin] 100 mg PO 4X/DAY 09/29/17 [History Confirmed 12/12/17] Fluoxetine [Prozac] 20 mg PO DAILY 09/30/17 [History Confirmed 12/12/17] furosemide 40 mg tablet 20 mg PO QODAY tab 10/11/17 [History Confirmed 12/12/17] Ensure Clear 120 ml PO 4X/DAY 12/12/17 [History Confirmed 12/12/17] Metoprolol Tartrate [Lopressor (beta alok)] 25 mg PO BID 12/12/17 [History Confirmed 12/12/17] Oxycodone CR [Oxycontin] 15 mg PO DAILY 12/12/17 [History Confirmed 12/12/17] Oxycodone [Oxyir] 5 mg PO Q4H PRN PRN 5 Days #20 tab 12/12/17 [Rx Confirmed 12/12/17] Pantoprazole Sodium [Protonix] 40 mg PO BID 12/12/17 [History Confirmed 12/12/17] Potassium Chloride [K-Tab ER] 10 meq PO QDAY 12/12/17 [History Confirmed 12/12/17] Prednisone [Deltasone] See Taper PO DAILY 12/12/17 [History Confirmed 12/12/17] Senna/Docusate Sodium [Senokot-S] 2 tab PO BID PRN #30 tab 12/12/17 [Rx Confirmed 12/12/17] Ejection fraction %: 55 to 59 PFSH Medical History Pulmonary hypertension, secondary (Chronic) Dyspnea on exertion (Acute) 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 (Chronic) Chronic atrial fibrillation (Chronic) Status post placement of implantable loop recorder (Chronic) Other secondary pulmonary hypertension (Chronic) Chronic diastolic (congestive) heart failure (Chronic) Symptomatic anemia (Chronic) Hypertension (Chronic) Type 2 diabetes mellitus (Chronic) Lung nodule (Chronic) Chronic kidney disease, stage 3 (Chronic) Shortness of breath (Acute) PAD (peripheral artery disease) (Chronic) Venous stasis ulcer of left lower leg with edema of left lower leg (Chronic) Venous stasis ulcer of right lower leg with edema of right lower leg (Chronic) GERD (gastroesophageal reflux disease) (Acute) Hypersomnia (Acute) LYN (obstructive sleep apnea) (Acute) Surgical History History of cardiac radiofrequency ablation (RFA) (Chronic) History of maze procedure (Chronic) History of loop recorder (Resolved) Family History Mother Diabetes Brother Diabetes Myocardial infarction Cancer multiple melanoma Son Hypertension Daughter Arthritis Diabetes Hypertension Brother Cancer lymphoma Social History Smoking Status: Never smoker alcohol intake: never substance use type: does not use caffeine: Yes Type: coffee, tea what type of physical activity do you participate in: other details: nustep frequency: 5-6 times per week duration: 45-60 minutes/day seatbelt use: always do you feel safe at home: Yes ROS Const Const: Positive for weakness and fatigue; negative for fever(s) or headache(s) Eyes Eyes: Negative for blind spots, loss of peripheral vision or transient loss of vision ENT ENT: Positive for dizziness and balance problems; negative for headache(s), tinnitus or Nosebleed/epistaxis Cardio Chest Pain: No Palpitations: No Edema: Bilateral Muscle aches with walking: None Resp Respiratory: Negative for SOB with activity, SOB at rest, SOB orthopnea\SOB lying down or Cough GI GI: Positive for black,tarry stools (recently hospitalized for a GI bleed); negative nausea, vomiting, heartburn or vomiting blood/hematemesis : Negative for hematuria Musc Musc: Positive for balance problems and muscle weakness; negative for muscle aches/ myalgia Skin Skin: Positive for wounds and skin ulcer (see HPI) Neuro Neuro: Positive for weakness, dizziness, lightheadedness and orthostatic symptoms; negative for headache(s), near syncope or syncope Celso Hematologic/Lymphatic: Negative for easy bleeding Endo Endo: Positive for fatigue Cardiology Exam Const Appearance: cooperative, no acute distress, well developed, frail appearing and other (on O2) Orientation: alert, awake and oriented x3 Limitations: physical limitations Head Head: normocephalic and atraumatic Mouth: moist mucous membranes Eyes General: appearance normal, both eyes and all related structures Conjunctivae: conjunctivae normal Pupils: PERRL EOM: EOM intact bilaterally Neck Neck: normal visual inspection, no lymphadenopathy and no JVD Carotids: Negative bruit Neck Mass: Negative Neck mass Chest Chest inspection: normal inspection of the chest and symmetric chest movement Auscultation: Bilateral: Diminished Lung Sounds, Rales (in bases) Cardio Palpation: normal PMI Rate: regular rate Rhythm: irregularly irregular Heart sounds: S1 normal and S2 normal; negative rub, gallop or murmur GI GI: normal to inspection, soft, no hepatosplenomegaly and bowel sounds present; negative tender Neuro General: alert, awake, oriented x3, CN's II-XI intact bilaterally and moves all extremities Extremities Pulses: Normal: Right Posterior Tibial Pulse, Left Posterior Tibial Pulse, Right Radial Pulse, Left Radial Pulse Lower Extremity Edema: +1: Bilateral (dependent edema upper thighs, posterior) lower legs in adrián bandages Musculoskel Musculoskeletal: joint tenderness Psych Psychological: normal affect Assessment AND Plan 1. Chronic atrial fibrillation I48.2 Plan - SHY Galindo Patient is not on any anticoagulation due to her difficulty with Coumadin and her recent GI bleed. She is on rate limiting medication. We will continue to monitor closely. 2. Chronic diastolic heart failure I50.32 Plan - SHY Galindo Patient is on low-dose Lasix, however will need to monitor her blood pressure closely as she is orthostatic and hypotensive. She is on minimal medications. 3. Edema, unspecified type R60.9 Plan - SHY Galindo Patient is on low-dose Lasix. As mentioned above do recommend monitoring her blood pressure closely as she is hypotensive today. She still however does have dependent edema. Plan Detail Additional Comments - SHY Galindo The above patient was discussed with Dr. Childers, he agrees with plan of care. Thank you for allowing us to participate in patient's plan of care, if you have any questions please do not hesitate to call. This note was generated using a voice recognition system and there may be incorrect words, spelling or punctuation errors that were not noted when reviewing the office note prior to saving. Follow Up 12/19/17 (Keep as is with PHYSICAL DAMAGE APPRAISER) Coding Level of Care Code Off vis,est,level 4 Diagnoses Chronic atrial fibrillation I48.2 Atrial fibrillation type: chronic Chronic diastolic heart failure I50.32 Edema, unspecified type R60.9 Edema type: unspecified Coding Level of Care Code Off vis,est,level 4 Diagnoses Chronic atrial fibrillation I48.2 Atrial fibrillation type: chronic Chronic diastolic heart failure I50.32 Edema, unspecified type R60.9 Edema type: unspecified 12/19/17 1157 <Electronically signed by Gosia BEGUM> Date Gosia BEGUM 12/19/17 1702<Electronically signed by Epifanio Childers MD> Cosigner Signature: Date (if applicable) Epifanio Childers MD CC: Aaron Tidwell MD BEDSIDE GLUCOSE Collected: 12/19/2017 Status: F Source: CELIO 4:48 PM [facility] REPOSITORY TYPE CODE TESTS RESULT OUT OF REFERENCE UNITS RANGE LAB L501.080 70-110 mg/dL High BEDSIDE GLU 163 Result Comment: MANAGEMENT OF PATIENT CARE PER NURSING PROTOCOL Performed By: #### L501.080 #### [facility] Laboratory Point of Care [address] [place] [address] BEDSIDE GLUCOSE Collected: 12/19/2017 Status: F Source: CELIO 11:11 AM [facility] REPOSITORY TYPE CODE TESTS RESULT OUT OF REFERENCE UNITS RANGE LAB L501.080 70-110 mg/dL High BEDSIDE GLU 141 Result Comment: MANAGEMENT OF PATIENT CARE PER NURSING PROTOCOL Performed By: #### L501.080 #### [facility] Laboratory Point [facility] [address] [place] [address] BEDSIDE GLUCOSE Collected: 12/19/2017 Status: F Source: CELIO 6:21 AM [facility] REPOSITORY TYPE CODE TESTS RESULT OUT OF RANGE REFERENCE UNITS LAB L501.080 70-110 mg/dL Normal BEDSIDE GLU 92 Result Comment: MANAGEMENT OF PATIENT CARE PER NURSING PROTOCOL Performed By: #### L501.080 #### [facility] Laboratory Point of Care [address] [place] [address] BEDSIDE GLUCOSE Collected: 12/18/2017 Status: F Source: CELIO 8:40 PM [facility] REPOSITORY TYPE CODE TESTS RESULT OUT OF REFERENCE UNITS RANGE LAB L501.080 70-110 mg/dL High BEDSIDE GLU 187 Result Comment: Dr Orders Followed MANAGEMENT OF PATIENT CARE PER NURSING PROTOCOL Performed By: #### L501.080 #### [facility] Laboratory Point of Care [address] [place] [address] BEDSIDE GLUCOSE Collected: 12/18/2017 Status: F Source: CELIO 4:50 PM [facility] REPOSITORY TYPE CODE TESTS RESULT OUT OF REFERENCE UNITS RANGE LAB L501.080 70-110 mg/dL High BEDSIDE GLU 183 Result Comment: MANAGEMENT OF PATIENT CARE PER NURSING PROTOCOL Performed By: #### L501.080 #### [facility] Laboratory Point of Care [address] [place] [address] BEDSIDE GLUCOSE Collected: 12/18/2017 Status: F Source: CELIO 10:53 AM [facility] REPOSITORY TYPE CODE TESTS RESULT OUT OF RANGE REFERENCE UNITS LAB L501.080 70-110 mg/dL Normal BEDSIDE GLU 107 Result Comment: MANAGEMENT OF PATIENT CARE PER NURSING PROTOCOL Performed By: #### L501.080 #### [facility] Laboratory Point of Care [address] [place] [address] ABDOMEN SINGLE VIEW Observed: 12/18/2017 Status: F Source: CELIO 8:22 AM [facility] REPOSITORY [facility] Imaging Services [address] [place] [address] Abdomen Single View MR#: [id number] Acct: [id number] Name: DI ZAPATA Rep #: [id number] : 1945 F 72 From: Fidel Cortez DO PCP: Aaron Tidwell MD Status: ADM IN Study: Abdomen Single View Date of Exam: 12/18/17 Exam# [id number] Ordering Dr: Ari Rainey MD STUDY: X-RAY - ABDOMEN/PELVIS REASON FOR EXAM: Female, 72 years old. Diarrhea TECHNIQUE: Two AP supine views of the abdomen and pelvis. COMPARISON: None. FINDINGS: There is patchy bibasilar airspace disease. A right pleural effusion is seen. There is no demonstrated free abdominal air. The visualized liver, spleen and kidneys are grossly normal in size and morphology. Cholecystectomy clips are seen in the right upper quadrant of the abdomen. Multiple right-sided rib fractures are seen. These appear to involve at least the right seventh through 12th ribs. RAD/Abdomen Single View IMPRESSION: Multiple right-sided rib fractures. Patchy bilateral airspace disease. Small right pleural effusion. Nonobstructive abdominal bowel gas pattern. Electronically Signed: Fidel Cortez DO at 9:37 EDT Tel , Service support , CC: Ari Rainey MD; Aaron Tidwell MD Oxyacetylene Cutter: Signed BEDSIDE GLUCOSE Collected: 12/18/2017 Status: F Source: CELIO 6:19 AM [facility] REPOSITORY TYPE CODE TESTS RESULT OUT OF RANGE REFERENCE UNITS LAB L501.080 70-110 mg/dL Normal BEDSIDE GLU 95 Result Comment: MANAGEMENT OF PATIENT CARE PER NURSING PROTOCOL Performed By: #### L501.080 #### [facility] Laboratory Point of Care [address] [place] [address] BEDSIDE GLUCOSE Collected: 12/17/2017 Status: F Source: CELIO 8:46 PM [facility] REPOSITORY TYPE CODE TESTS RESULT OUT OF REFERENCE UNITS RANGE LAB L501.080 70-110 mg/dL High BEDSIDE GLU 150 Result Comment: Dr Moe Followed MANAGEMENT OF PATIENT CARE PER NURSING PROTOCOL Performed By: #### L501.080 #### [facility] Laboratory Point of Care [address] [place] [address] BEDSIDE GLUCOSE Collected: 12/17/2017 Status: F Source: CELIO 4:58 PM [facility] REPOSITORY TYPE CODE TESTS RESULT OUT OF REFERENCE UNITS RANGE LAB L501.080 70-110 mg/dL High BEDSIDE GLU 155 Result Comment: Dr Orders Followed MANAGEMENT OF PATIENT CARE PER NURSING PROTOCOL Performed By: #### L501.080 #### [facility] Laboratory Point of Care [address] [place] [address] BEDSIDE GLUCOSE Collected: 12/17/2017 Status: F Source: CELIO 11:10 AM [facility] REPOSITORY TYPE CODE TESTS RESULT OUT OF RANGE REFERENCE UNITS LAB L501.080 70-110 mg/dL Normal BEDSIDE GLU 101 Result Comment: MANAGEMENT OF PATIENT CARE PER NURSING PROTOCOL Performed By: #### L501.080 #### [facility] Laboratory Point of Care [address] [place] [address] BEDSIDE GLUCOSE Collected: 12/17/2017 Status: F Source: CELIO 7:01 AM [facility] REPOSITORY TYPE CODE TESTS RESULT OUT OF RANGE REFERENCE UNITS LAB L501.080 70-110 mg/dL Normal BEDSIDE GLU 85 Result Comment: MANAGEMENT OF PATIENT CARE PER NURSING PROTOCOL Performed By: #### L501.080 #### [facility] Laboratory Point of Care [address] [place] [address] BEDSIDE GLUCOSE Collected: 12/16/2017 Status: F Source: CELIO 9:04 PM [facility] REPOSITORY TYPE CODE TESTS RESULT OUT OF REFERENCE UNITS RANGE LAB L501.080 70-110 mg/dL High BEDSIDE GLU 199 Result Comment: Dr Orders Followed MANAGEMENT OF PATIENT CARE PER NURSING PROTOCOL Performed By: #### L501.080 #### [facility] Laboratory Point of Care [address] [place] [address] BEDSIDE GLUCOSE Collected: 12/16/2017 Status: F Source: CELIO 4:45 PM [facility] REPOSITORY TYPE CODE TESTS RESULT OUT OF REFERENCE UNITS RANGE LAB L501.080 70-110 mg/dL High BEDSIDE GLU 197 Result Comment: Dr Orders Followed MANAGEMENT OF PATIENT CARE PER NURSING PROTOCOL Performed By: #### L501.080 #### [facility] Laboratory Point of Care [address] [place] [address] BEDSIDE GLUCOSE Collected: 12/16/2017 Status: F Source: CELIO 11:08 AM [facility] REPOSITORY TYPE CODE TESTS RESULT OUT OF REFERENCE UNITS RANGE LAB L501.080 70-110 mg/dL High BEDSIDE GLU 117 Result Comment: MANAGEMENT OF PATIENT CARE PER NURSING PROTOCOL Performed By: #### L501.080 #### [facility] Laboratory Point of Care [address] [place] [address] BEDSIDE GLUCOSE Collected: 12/16/2017 Status: F Source: CELIO 6:25 AM [facility] REPOSITORY TYPE CODE TESTS RESULT OUT OF RANGE REFERENCE UNITS LAB L501.080 70-110 mg/dL Normal BEDSIDE GLU 82 Result Comment: MANAGEMENT OF PATIENT CARE PER NURSING PROTOCOL Performed By: #### L501.080 #### [facility] Laboratory Point of Care [address] [place] [address] BEDSIDE GLUCOSE Collected: 12/15/2017 Status: F Source: CELIO 9:20 PM [facility] REPOSITORY TYPE CODE TESTS RESULT OUT OF REFERENCE UNITS RANGE LAB L501.080 70-110 mg/dL High BEDSIDE GLU 174 Result Comment: MANAGEMENT OF PATIENT CARE PER NURSING PROTOCOL Performed By: #### L501.080 #### [facility] Laboratory Point of Care [address] [place] [address] BEDSIDE GLUCOSE Collected: 12/15/2017 Status: F Source: CELIO 4:45 PM [facility] REPOSITORY TYPE CODE TESTS RESULT OUT OF REFERENCE UNITS RANGE LAB L501.080 70-110 mg/dL High BEDSIDE GLU 198 Result Comment: MANAGEMENT OF PATIENT CARE PER NURSING PROTOCOL Performed By: #### L501.080 #### [facility] Laboratory Point of Care [address] [place] [address] BEDSIDE GLUCOSE Collected: 12/15/2017 Status: F Source: CELIO 11:20 AM [facility] REPOSITORY TYPE CODE TESTS RESULT OUT OF REFERENCE UNITS RANGE LAB L501.080 70-110 mg/dL High BEDSIDE GLU 141 Result Comment: MANAGEMENT OF PATIENT CARE PER NURSING PROTOCOL Performed By: #### L501.080 #### [facility] Laboratory Point of Care [address] [place] [address] BEDSIDE GLUCOSE Collected: 12/15/2017 Status: F Source: CELIO 6:19 AM [facility] REPOSITORY TYPE CODE TESTS RESULT OUT OF RANGE REFERENCE UNITS LAB L501.080 70-110 mg/dL Normal BEDSIDE GLU 90 Result Comment: MANAGEMENT OF PATIENT CARE PER NURSING PROTOCOL Performed By: #### L501.080 #### [facility] Laboratory Point of Care [address] [place] [address] BEDSIDE GLUCOSE Collected: 12/14/2017 Status: F Source: CELIO 8:38 PM [facility] REPOSITORY TYPE CODE TESTS RESULT OUT OF REFERENCE UNITS RANGE LAB L501.080 70-110 mg/dL High BEDSIDE GLU 162 Result Comment: MANAGEMENT OF PATIENT CARE PER NURSING PROTOCOL Performed By: #### L501.080 #### [facility] Laboratory Point of Care [address] [place] [address] BEDSIDE GLUCOSE Collected: 12/14/2017 Status: F Source: CELIO 4:51 PM [facility] REPOSITORY TYPE CODE TESTS RESULT OUT OF REFERENCE UNITS RANGE LAB L501.080 70-110 mg/dL High BEDSIDE GLU 168 Result Comment: Dr Orders Followed MANAGEMENT OF PATIENT CARE PER NURSING PROTOCOL Performed By: #### L501.080 #### [facility] Laboratory Point of Care [address] [place] [address] BEDSIDE GLUCOSE Collected: 12/14/2017 Status: F Source: CELIO 11:04 AM [facility] REPOSITORY TYPE CODE TESTS RESULT OUT OF REFERENCE UNITS RANGE LAB L501.080 70-110 mg/dL High BEDSIDE GLU 168 Result Comment: MANAGEMENT OF PATIENT CARE PER NURSING PROTOCOL Performed By: #### L501.080 #### [facility] Laboratory Point of Care [address] [place] [address] DISCHARGE SUMMARY Observed: 12/14/2017 Status: F Source: CELIO 10:04 AM [facility] Medical Records Department [address] [place] [address] Discharge Summary 12/12/17 2242 MR#: [id number] Acct: [id number] Name: DI ZAPATA Rep #: [id number] : 1945 72 From: Christina Glover MD PCP: Aaron Tidwell MD Status: DIS IN Y Location: [place] [address] Discharge Date and Diagnosis - Problem List Patient Problems: Active and Suspected Problems (Last Updated 10/11/17 @ 09:06 by Gosia Martinez) Weakness (Acute) Anemia (Acute) Hypokalemia (Acute) Date of Admission: 12/07/17 Date of Discharge: 12/12/17 - Primary Discharge Diagnosis Active and Suspected Problems (Last Updated 10/11/17 @ 09:06 by Gosia Martinez) Weakness (Acute) Anemia (Acute) Hypokalemia (Acute) - Secondary Discharge Diagnosis Chronic Problems (Last Updated 10/11/17 @ 09:06 by Gosia Martinez) Calcinosis (Chronic) Edema (Chronic) Pulmonary hypertension (Chronic) Atrial fibrillation (Chronic) Chronic diastolic heart failure (Chronic) Diabetes mellitus (Chronic) Chronic kidney disease (Chronic) Lumbar spinal stenosis (Chronic) PAOD (peripheral arterial occlusive disease) (Chronic) Venous stasis ulcer (Chronic) Depression (Chronic) Neuropathic pain (Chronic) Edema, lower extremity (Chronic) Pulmonary hypertension, secondary (Chronic) History of cardiac radiofrequency ablation (RFA) (Chronic) 1st part of MAZE procedure Lt Atrial Ablation 01/12/17 @ Sy Localized edema (Chronic) Heart failure with 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 (Chronic) [facility] current use of anticoagulant (Chronic) Chronic atrial fibrillation (Chronic) [facility] 10/10, 10/2015; MAZE procedure @ [facility] 01/12/2017; Status post placement of implantable loop recorder (Chronic) History of maze procedure (Chronic) Other secondary pulmonary hypertension (Chronic) Chronic diastolic (congestive) heart failure (Chronic) Symptomatic anemia (Chronic) Hypertension (Chronic) Type 2 diabetes mellitus (Chronic) Lung nodule (Chronic) Chronic kidney disease, stage 3 (Chronic) 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 calciphylaxis vs. erythema nodosum vs. dermatomyositis vs. panniculitis Mass of soft tissue of right lower extremity (Chronic) right inner upper thigh - ? calciphylaxis vs. erythema nodosum vs. dermatomyositis vs. panniculitis Hospital Course and Treatment Imaging Results: Clinical Impression(s) from Imaging Studies Chest X-Ray 12/07/17 06:27 IMPRESSION: No acute cardiopulmonary abnormalities or changes. There is stable mild enlargement of the cardiac silhouette without pulmonary edema or pleural effusion. There is minimal bibasilar atelectasis due to low volume inspiration. Electronically Signed: Christen Gold MD at 7:00 EDT Tel Direct: [phone], Service support , Chest X-Ray 12/08/17 10:33 IMPRESSION: The tip of the right PICC line catheter is at the junction of the superior vena cava and right atrium. The lungs are stable. 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 fib on Xarelto admitted with generalized weakness for 3-4 weeks and bright red rectal bleed. Patient was been feeling progressively weak and had fall earlier on, came to the ED and got peña in the head in ER. Active management in the hospital was: 1. Acute GI bleed, off Xarelto, managed conservatively, H AND H was stable, Dr. Alvarado saw her in the hospital, will follow up in the outpatient for colonoscopy. 2. Acute blood loss anemia secondary to GI bleed from Xarelto. She received 1 unit packed RBC transfusion, Hb remained stable, to be followed up in the outpatient. 3. Chronic A. fib with RVR, status post maze procedure, rate controlled, off Xarelto on account of GI bleed, discussed with cardiology, Dr. Childers, patient is okay to be off Xarelto as risks of bleeding outweighs risk of stroke. This was explained to the patient and she agreed. 4. Klebsiella pneumonia UTI, completed 5 days of IV ceftriaxone in the hospital. 5. Chronic heart failure with preserved EF, stable, as of acute exacerbation, on alternate day Lasix. 6. Peripheral arterial disease, bilateral lower extremity venous stasis ulcers, calciphylaxis/peripheral neuropathy chronic, started on prednisone taper for possible suspicion of pyoderma gangrenosum, will taper off steroids, wound nurse will follow-up in TCU 7. Diabetes mellitus type 2, blood sugars have been stable, on Accu-Cheks and insulin sliding scale Discharge Diet: Low fat/ Low Cholesterol, 2000 mg Sodium Diet, Carb Control Diet Discharge Activity: Return to Normal Activity Home Medications: Medications to take at Discharge Gabapentin [Neurontin] 100 mg PO 4X/DAY 09/29/17 Fluoxetine [Prozac] 20 mg PO DAILY 09/30/17 furosemide 40 mg tablet 20 mg PO QODAY tab 10/11/17 Ensure Clear 120 ml PO 4X/DAY 12/12/17 Metoprolol Tartrate [Lopressor (beta alok)] 25 mg PO BID 12/12/17 Oxycodone CR [Oxycontin] 15 mg PO DAILY 12/12/17 Oxycodone [Oxyir] 5 mg PO Q4H PRN PRN 5 Days #20 tablet 12/12/17 Pantoprazole Sodium [Protonix] 40 mg PO BID 12/12/17 Potassium Chloride [K-Tab ER] 10 meq PO QDAY 12/12/17 Prednisone [Deltasone] See Taper PO DAILY 12/12/17 Senna/Docusate Sodium [Senokot-S] 2 tab PO BID PRN #30 tab 12/12/17 Following Prescrptions Were Given to Patient: Oxycodone [Oxyir] 5 mg PO Q4H PRN PRN 5 Days #20 tablet PRN Reason: Breakthrough Pain (>4/10) Senna/Docusate Sodium [Senokot-S] 2 tab PO BID PRN #30 tab PRN Reason: constipation Primary Care Physician: Aaron Tidwell MD [Primary Care Provider] - Please follow up with your Primary Care Physician in: within 2 weeks after discharge Please Follow Up With: Huang Alvarado MD When: within 2 weeks Please Follow Up With: Epifanio Childers MD When: in 2 weeks Please Follow Up With: Aaron Tidwell MD When: within 2 weeks [facility]position: [facility] facility Minutes spent on discharge:: 30 - Lots of time spent in discharge planning and co-ordinating care Patient Condition:: Stable Medical Necessity - Tobacco Use Smoking Status: Never smoker Tobacco Use: Non-smoker Meaningful Use Info Meaningful Use Diagnoses (Choose all that apply): None applicable Code Visit Inpatient E AND M: 67833 Disch Hosp 12/14/17 1004 <Electronically signed by Christina Glover MD> Date Christina Glover MD Cosigner Signature (if applicable): Date CC: Christina Glover MD; Aaron Tidwell MD Signed BEDSIDE GLUCOSE Collected: 12/14/2017 Status: F Source: [place]EL[place] 6:29 AM [facility] REPOSITORY TYPE CODE TESTS RESULT OUT OF RANGE REFERENCE UNITS LAB L501.080 70-110 mg/dL Normal BEDSIDE GLU 95 Result Comment: MANAGEMENT OF PATIENT CARE PER NURSING PROTOCOL Performed By: #### L501.080 #### [facility] Laboratory Point of Care [address] [place] [address] BEDSIDE GLUCOSE Collected: 12/13/2017 Status: F Source: [place]EL[place] 8:16 PM [facility] REPOSITORY TYPE CODE TESTS RESULT OUT OF REFERENCE UNITS RANGE LAB L501.080 70-110 mg/dL High BEDSIDE GLU 240 Result Comment: Dr Moe Followed MANAGEMENT OF PATIENT CARE PER NURSING PROTOCOL Performed By: #### L501.080 #### [facility] Laboratory Point of Care [address] [place] [address] BEDSIDE GLUCOSE Collected: 12/13/2017 Status: F Source: [place]EL[place] 5:03 PM [facility] REPOSITORY TYPE CODE TESTS RESULT OUT OF REFERENCE UNITS RANGE LAB L501.080 70-110 mg/dL High BEDSIDE GLU 172 Result Comment: MANAGEMENT OF PATIENT CARE PER NURSING PROTOCOL Performed By: #### L501.080 #### [facility] Laboratory Point of Care [address] [place] [address] BEDSIDE GLUCOSE Collected: 12/13/2017 Status: F Source: [place] 11:51 AM [facility] REPOSITORY TYPE CODE TESTS RESULT OUT OF REFERENCE UNITS RANGE LAB L501.080 70-110 mg/dL High BEDSIDE GLU 132 Result Comment: MANAGEMENT OF PATIENT CARE PER NURSING PROTOCOL Performed By: #### L501.080 #### [facility] Laboratory Point of Care [address] [place] [address] BEDSIDE GLUCOSE Collected: 12/13/2017 Status: F Source: CEL[place] 6:12 AM [facility] REPOSITORY TYPE CODE TESTS RESULT OUT OF RANGE REFERENCE UNITS LAB L501.080 70-110 mg/dL Normal BEDSIDE GLU 84 Result Comment: MANAGEMENT OF PATIENT CARE PER NURSING PROTOCOL Performed By: #### L501.080 #### [facility] Laboratory Point of Care [address] [place] [address] BASIC METABOLIC Collected: 12/13/2017 Status: F Source: [place] PROFILE (BMP) 6:10 AM [facility] REPOSITORY Order Comment: SPECIMEN OBTAINED FROM LINE DRAW TYPE CODE TESTS RESULT OUT OF RANGE REFERENCE UNITS LAB L501.0100 74-106 mg/dL Normal GLU 103 Result Comment: Fasting Glucose result from 100 to 125 mg/dL suggests IMPAIRED HOMEOSTASIS per A.D.A. criteria. Please note revised GLUCOSE reference range effective 2017. LAB L501.1000 7-18 mg/dL High BUN 23 LAB L501.1100 0.55-1.02 mg/dL High CREAT,SERUM 1.10 Result Comment: The validity of the calculated GFR AND GFRAA in patients over 70 years has not been determined. Clinical correlation is essential. LAB L501.1110 >60 mL/min Low EST GFR 52 Result Comment: Non- GFR Calc LAB L501.1115 >60 mL/min Normal EST GFR - AA 63 Result Comment: GFR Calc LAB L501.1255 ml/min Normal Estimated CRCL 38.80 LAB L501.1300 10-20 RATIO High BUN/CRE 20.9 LAB L501.2200 8.5-10 mg/dL Normal .1 CA 8.5 LAB L501.5300 136-14 mmol/L Normal 5 NA 141 LAB L501.5600 3.5-5. mmol/L Normal 1 K 3.5 LAB L501.5900 98-107 mmol/L Normal CL 105 LAB L501.6100 21.0-3 mmol/L Normal 2.0 CO2 29.0 LAB L501.6200 5-15 Normal GAP 7 Performed By: #### L500.2500 #### [facility] [address] [place], [address] CBC W/DIFF, AUTOMATED Collected: 12/13/2017 Status: F Source: [place] 6:10 AM [facility] REPOSITORY Order Comment: SPECIMEN OBTAINED FROM LINE DRAW TYPE CODE TESTS RESULT OUT OF RANGE REFERENCE UNITS LAB L100.1000 4.4-11.0 K/mm3 High WBC 21.6 LAB L100.1200 4.2-5.4 M/mm3 Low RBC 3.94 LAB L100.1300 12.0-15.0 g/dl Low HGB 9.1 LAB L100.1400 37-47 % Low HCT 30.0 LAB L100.1500 81-99 fL Low MCV 76.1 LAB L100.1600 27.0-32.0 pg Low MCH 23.1 LAB L100.1700 32-36 g/gl Low MCHC 30.3 LAB L100.1810 11.6-14.6 % High RDW CV 26.0 LAB L100.1820 35.1-43.9 fl High RDW SD 68.4 LAB L100.1900 150-450 K/mm3 Normal PLT 391 LAB L100.2000 6.2-12.0 fl Normal MPV 9.7 LAB L100.2100 47-70 % High NEUT% 85.3 LAB L100.2200 19-41 % Low LY% 8.1 LAB L100.2300 0-10 % Normal MONO% 6.4 LAB L100.2400 0-5 % Normal EO% 0.0 LAB L100.2500 0-1 % Normal BASO% 0.0 LAB L100.2550 0.0-0.9 % Normal IM GRAN % 0.200 Result Comment: IG% - Immature Granulocytes (promyelocytes, myelocytes and metamyelocytes) > 1% indicates that a LEFT SHIFT is Present. LAB L100.2620 2.0-7.7 X10 3/uL Absolute Neut High 18.4 LAB L100.2720 0.83-4.51 X10 3/ul Absolute Lymph Normal 1.75 LAB L100.4500 SMEAR COMMENT Normal SCANNED LAB L100.7300 ANISO Normal 3+ LAB L100.7500 POLYCHROMASIA Normal RARE LAB L100.7600 HYPOCHROMASIA Normal 2+ LAB L100.7700 MICROCYTES Normal 2+ LAB L100.8600 TARGET CELLS Normal 2+ Performed By: #### L100.0100 #### [facility] [address] [place], [address] HISTORY AND PHYSICAL Observed: 12/12/2017 Status: F Source: [place] EXAM 9:02 PM [facility] REPOSITORY [facility] Medical Records Department [address] [place] [address] History and Physical 12/12/172040 MR#: [id number] Acct: [id number] Name: DI ZAPATA Rep #: [id number] : 1945 72 From: Ari Rainey MD PCP: Aaron Tidwell MD Status: ADM IN Location: [place] [address] Problem List (1) Weakness Status: Acute (2) Anemia Status: Acute (3) Edema Status: Chronic (4) Pulmonary hypertension Status: Chronic (5) Atrial fibrillation Status: Chronic (6) Chronic diastolic heart failure Status: Chronic (7) Diabetes mellitus Status: Chronic (8) Chronic kidney disease Status: Chronic (9) Lumbar spinal stenosis Status: Chronic (10) PAOD (peripheral arterial occlusive disease) Status: Chronic (11) Venous stasis ulcer Status: Chronic (12) Depression Status: Chronic (13) Neuropathic pain Status: Chronic (14) Hypokalemia Status: Acute (15) Calcinosis Status: Chronic (16) GI bleeding Status: Acute Qualifiers: (17) Hypertension Status: Chronic Qualifiers: (18) Shortness of breath Status: Acute History of Present Illness Date of Admission: 12/12/17 Chief Complaint: Here for rehabilitation, strengthening, wound care, prior to discharge home with spouse. The patient is a 72 year old Female with below past medical history presented to [facility] Emergency Department 12/07/2017 with generalized weakness, frequent falls. 12/07/2017 EKG atrial fibrillation, ST AND T wave abnormality, consider inferolateral ischemia. 2 falls in the past week. [place] weak, going to fall, lowered to the floor. Rectal x 1 week. On Xarelto for atrial fibrillation. IV placed. Hemoglobin 8.6, Hematocrit 20.1, K 5.3, CO2 17, BUN 33, Cr 1.53. INR 8.0, PTT 91.5. Troponin < 0.02, Lactic Acid 1.4. K Centra given for reversal Xarelto. 12/07/2017 Admit to ICU. IV fluids, IV Protonix 40MG Q12H for GI bleed. IV Ceftriaxone for K. Pneumoniae UTI. 12/07/2017 Dr. Mitchell recommended stopping morphine, hold gabapentin, use IV Fentanyl for pain. 12/08/2017 Dr. Alvarado recommended correcting anticoagulation, Endoscopy as outpatient. 12/08/2017 Chest X-ray showed right PICC line in position. Transfused 1 unit PRBC for anemia. Off anticoagulation for atrial fibrillation due to GI bleed. Prednisone taper for pyoderma gangrenosum of legs. 12/12/2017 Admit to TCU for rehabilitation, strengthening, wound care, prior to discharge home with spouse. Past Medical History Past Medical History (Chronic Problems): Chronic Problems (Last Updated 10/11/17 @ 09:06 by Gosia Martinez) Calcinosis (Chronic) Edema (Chronic) Pulmonary hypertension (Chronic) Atrial fibrillation (Chronic) Chronic diastolic heart failure (Chronic) Diabetes mellitus (Chronic) Chronic kidney disease (Chronic) Lumbar spinal stenosis (Chronic) PAOD (peripheral arterial occlusive disease) (Chronic) Venous stasis ulcer (Chronic) Depression (Chronic) Neuropathic pain (Chronic) Edema, lower extremity (Chronic) Pulmonary hypertension, secondary (Chronic) History of cardiac radiofrequency ablation (RFA) (Chronic) 1st part of MAZE procedure Lt Atrial Ablation 01/12/17 @ Sy Localized edema (Chronic) Heart failure with 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 (Chronic) [facility] current use of anticoagulant (Chronic) Chronic atrial fibrillation (Chronic) [facility] 10/10, 10/2015; MAZE procedure @ Sy 01/12/2017; Status post placement of implantable loop recorder (Chronic) History of maze procedure (Chronic) Other secondary pulmonary hypertension (Chronic) Chronic diastolic (congestive) heart failure (Chronic) Symptomatic anemia (Chronic) Hypertension (Chronic) Type 2 diabetes mellitus (Chronic) Lung nodule (Chronic) Chronic kidney disease, stage 3 (Chronic) 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 calciphylaxis vs. erythema nodosum vs. dermatomyositis vs. panniculitis Mass of soft tissue of right lower extremity (Chronic) right inner upper thigh - ? calciphylaxis vs. erythema nodosum vs. dermatomyositis vs. panniculitis Allergies amlodipine besylate [From Norvasc] Allergy (Verified 12/07/17 06:11) Unknown Shortness of breath ceftriaxone Allergy (Verified 12/07/17 06:11) Rash doxazosin mesylate [From Cardura] Allergy (Verified 12/07/17 06:11) Unknown Pt doesn't remember doxycycline Allergy (Verified 12/07/17 06:11) Unknown Pt doesn't remember enalapril maleate [From Vasotec] Allergy (Verified 12/07/17 06:11) Rash enalaprilat dihydrate [From Vasotec] Allergy (Verified 12/07/17 06:11) Rash hydroxyzine HCl [From Vistaril] Allergy (Verified 12/07/17 06:11) Rash hydroxyzine pamoate [From Vistaril] Allergy (Verified 12/07/17 06:11) Rash meperidine HCl [From Demerol] Allergy (Verified 12/07/17 06:11) Rash Sulfa (Sulfonamide Antibiotics) Allergy (Verified 12/07/17 06:11) Hives sulfamethoxazole [From Bactrim] Allergy (Verified 12/04/17 05:42) Hives trimethoprim [From Bactrim] Allergy (Verified 12/04/17 05:42) Hives Home Medications: Ambulatory Orders Medication Instructions Recorded Gabapentin [Neurontin] 100 mg PO 4X/DAY 09/29/17 Surgical History: cataract, cholecystectomy, hysterectomy, - - s/p MAZE procedure, loop recorder. Psychiatric History: Depression RELIGIOUS ASSISTANT History: No pertinent RELIGIOUS ASSISTANT history Lives: Spouse/ Significant Other Smoking Status: Never smoker Tobacco Use: Non-smoker Alcohol: None Drugs: None - *Family History Maternal History Items: No pertinent history Paternal History Items: No pertinent history Review of Systems Constitutional: Denies: Chills, Fever, Weight Change HEENT: Denies: Head Aches, Sinus Congestion, Sinus Drainage Cardiovascular: Denies: Chest Pain, Palpitations Respiratory: Denies: Cough, Shortness of breath at rest, Sputum production Gastrointestinal: Denies: Abdominal Pain, Nausea, Vomiting Genitourinary: Denies: Dysuria Musculoskeletal: Reports: Leg Pain - Bilateral from ulcers.. Denies: Joint Pain, Joint Tenderness Skin: Denies: Rash, Wounds Neurological: Denies: Numbness, Tingling, Focal weakness Psychiatric: Denies: Anxiety, Depression, Homicidal Ideations, Suicidal Ideations Hematologic/ Lymphatic: Denies: Easy Bruising, Easy Bleeding VTE Information - Inpt Only VTE Present on Admission: No VTE Mechan Device Prophylaxis: Knee High KARLY Hose VTE Pharm Prophylaxis ordered?: No Reason prophylaxis not ordered:: Medical Contraindication Patient Problems: Active and Suspected Problems (Last Updated 10/11/17 @ 09:06 by Gosia Martinez) Weakness (Acute) Anemia (Acute) Hypokalemia (Acute) - Physical Exam General: Alert, Oriented x3, Cooperative HEENT: Atraumatic, PERRLA, EOMI, Normocephalic Neck: Supple, No JVD, Negative Carotid Bruits Lungs: Clear to auscultation, Normal air movement Cardiovascular: Regular rate, No murmurs Abdomen: Bowel Sounds Present, Soft, Non Tender Extremities: No edema, Capillary Refill Less than 3 Seconds, - - Bilateral lower extremities wrapped with kerlex, ADRIÁN wraps. Skin: No rashes, No breakdown Musculoskeletal: No Tenderness to Palpation of Joints or Extremities Neurological: Cranial nerves II-XII grossly intact Psych/Mental Status: Normal Affect, Appropriate Vital Signs Temp Pulse Resp BP Pulse Ox 98.7 F 88 18 124/69 H 92 12/12/17 15:30 12/12/17 17:30 12/12/17 15:30 12/12/17 17:30 12/12/17 15:30 Oxygen Delivery Method Room Air Weight: 81.675 kg Body Mass Index (BMI) 31.8 Finger Stick Blood Glucose 124 Intake and Output for Last 24 Hours Intake Total 220 / 220 Balance 220 / 220 POC Glucose POC Glucose 160 H Assessment/Plan Active and Suspected Problems (Last Updated 10/11/17 @ 09:06 by Gosia Martinez) Weakness (Acute) Anemia (Acute) Hypokalemia (Acute) 72 year old female with below past medical history hospitalized for gastrointestinal bleeding secondary to Xarelto coagulopathy, complicated by anemia requiring 1 unit PRBC transfusion, K. Pneumoniae UTI, pyoderma gangrenosum of legs, admitted to TCU for debility, here for rehabilitation, strengthening, wound care, prior to discharge home with spouse. * Debility - PT/OT. * Pain - Tylenol 1000MG Q8H PRN mild pain, Oxycontin CR 15MG daily, Oxycodone 5MG Q4H PRN severe pain. * Bowel - Miralax 17GM daily, Senna/colace 2 tablets BID, Dulcolax 10MG MA daily PRN. * Pneumonia vaccination - Administer Prevnar 13 and/or Pneumovax 23 as necessary. * DVT prophylaxis - Hold due to recent GI bleed. * Nutrition - Ensure 120ML 4x/day. * Depression - Fluoxetine 20MG daily. * Edema - Lasix 20MG every other day. * Neuropathic pain - Gabapentin 100MG 4x/day. * Atrial Fibrillation - Metoprolol 25MG BID, hold anticoagulation due to recent GI bleed. * GI bleed - Pantoprazole 40MG BID, monitor CBCD. * Hypokalemia - K- Dur 10MEQ daily. * Pyoderma Gangrenosum - Prednisone taper, wound care. 12/12/172101 <Electronically signed by Ari Rainey MD> Date Ari Rainey MD Cosigner Signature: Date (if applicable) CC: Ari Rainey MD; Aaron Tidwell MD Signed BEDSIDE GLUCOSE Collected: 12/12/2017 Status: F Source: [place] 8:42 PM [facility] REPOSITORY TYPE CODE TESTS RESULT OUT OF REFERENCE UNITS RANGE LAB L501.080 70-110 mg/dL High BEDSIDE GLU 236 Result Comment: MANAGEMENT OF PATIENT CARE PER NURSING PROTOCOL Performed By: #### L501.080 #### [facility] Laboratory Point of Care [address] [place] [address] BEDSIDE GLUCOSE Collected: 12/12/2017 Status: F Source: [place] 4:54 PM [facility] REPOSITORY TYPE CODE TESTS RESULT OUT OF REFERENCE UNITS RANGE LAB L501.080 70-110 mg/dL High BEDSIDE GLU 160 Result Comment: Dr Orders Followed MANAGEMENT OF PATIENT CARE PER NURSING PROTOCOL Performed By: #### L501.080 #### [facility] Laboratory Point of Care [address] [place], [place] [address] TRANSFER TO EXTENDED Observed: 12/12/2017 Status: F Source: [place] CARE 1:06 PM [facility] REPOSITORY [facility] Medical Records Department [address] [place] [address] Transfer to Extended Care MR#: [id number] Acct: [id number] Name: DI ZAPATA Rep #: [id number] : 1945 72 From: Christina Glover MD PCP: Aaron Tidwell MD Status: ADM IN DI ZAPATA (Patient) (Health Ins. Claim No.) (Day of Discharge to Facility) Certification of patient admission REQUIRED AT TIME OF ADMISSION. I CERTIFY THAT POST-HOSPITAL ECF SERVICES ARE REQUIRED TO BE GIVEN ON AN IN-PATIENT BASIS BECAUSE OF THE ABOVE NAMED PATIENT'S NEED FOR RETIREMENT CARE ON A CONTINUING BASIS FOR THE CONDITION(S) FOR WHICH HE/SHE WAS RECEIVING IN-PATIENT HOSPITAL SERVICES PRIOR TO HIS/HER TRANSFER TO THE F. 12/12/17 1306 <Electronically signed by Christina Glover MD> Date Christina Glover MD - Diet 12/11/17 12:31 Diet: Calorie Controlled Is pt able to select menu?: Yes Diet Comments: pt is diabetic, needs sugar free liquids, Low gastric stim How many daily calories?: 1600 calorie - Routine Orders/Code Status Routine Lab Work: CBC - in 3 days, BMP - in 3 days, - - CPAP at night - Wound(s) scalp Wound Type: Abrasion Dressing Change: AntiMicrobial (Aquacel AG, etc) LLE Wound Type: non healing ulcer Dressing Change: hydrogel with Adaptic RLE Wound Type: non healing ulcers Dressing Change: hydrogel with Adaptic - Therapies Weight Bearing: Weight bearing as tolerated Extremity Affected:: Bilateral Lower Physical Therapy: Eval and Treat Occupational Therapy: Eval and Treat - Allergies/Procedures Done in Hospital Allergies/Adverse Reactions: Allergies amlodipine besylate [From Norvasc] Allergy (Verified 12/07/17 06:11) Unknown Shortness of breath ceftriaxone Allergy (Verified 12/07/17 06:11) Rash doxazosin mesylate [From Cardura] Allergy (Verified 12/07/17 06:11) Unknown Pt doesn't remember doxycycline Allergy (Verified 12/07/17 06:11) Unknown Pt doesn't remember enalapril maleate [From Vasotec] Allergy (Verified 12/07/17 06:11) Rash enalaprilat dihydrate [From Vasotec] Allergy (Verified 12/07/17 06:11) Rash hydroxyzine HCl [From Vistaril] Allergy (Verified 12/07/17 06:11) Rash hydroxyzine pamoate [From Vistaril] Allergy (Verified 12/07/17 06:11) Rash meperidine HCl [From Demerol] Allergy (Verified 12/07/17 06:11) Rash Sulfa (Sulfonamide Antibiotics) Allergy (Verified 12/07/17 06:11) Hives sulfamethoxazole [From Bactrim] Allergy (Verified 12/04/17 05:42) Hives trimethoprim [From Bactrim] Allergy (Verified 12/04/17 05:42) Hives Procedures: None - Type of Care/Length of Stay Estimated LOS: Convalescent Care Less Than 30 days Type of Care Needed: Skilled Rehab Potential: Fair Prognosis: Good - Additional Orders/Day of Discharge Day of Discharge: 12/12/17 - Dietary and Speech Recommendations Dietitian Recommendations/Changes: Suggest diet as tolerated to 1600 calorie, cardiac, no gastric stimulant/low residue. Will d/c glucerna shake AND offer ensure clear on medpass. - Follow Up Care Primary Care Physician: Aaron Tidwell MD [Primary Care Provider] - Please follow up with your Primary Care Physician in: within 2 weeks after discharge Please Follow Up With: Huang Alvarado MD When: within 2 weeks Please Follow Up With: Epifanio Childers MD When: in 2 weeks 12/12/17 1306 <Electronically signed by Christina Glover MD> Date Christina Glover MD CC: Huang Alvarado MD; Eliu Mitchell D.O.; Aaron Tidwell MD Signed BEDSIDE GLUCOSE Collected: 12/12/2017 Status: F Source: [place] 11:31 AM [facility] REPOSITORY TYPE CODE TESTS RESULT OUT OF REFERENCE UNITS RANGE LAB L501.080 70-110 mg/dL High BEDSIDE GLU 181 Result Comment: MANAGEMENT OF PATIENT CARE PER NURSING PROTOCOL Performed By: #### L501.080 #### [facility] Laboratory Point of Care [address] [place], [place] [id number] HH, HEMOGLOBIN AND Collected: 12/12/2017 Status: F Source: [place] HEMATOCRIT 10:55 AM [facility] REPOSITORY TYPE CODE TESTS RESULT OUT OF RANGE REFERENCE UNITS LAB L100.1300 12.0-15.0 g/dl Low HGB 9.6 LAB L100.1400 37-47 % Low HCT 29.9 Performed By: #### L100.0600 #### [facility] [address] [place], [place], [address] DISCHARGE INSTRUCTION Observed: 12/12/2017 Status: F Source: [place] 10:39 [facility] REPOSITORY [facility] Medical Records Department [address] [place] [address] Instructions for Home/Discharge Instructions 12/12/17 1026 MR#: [id number] Acct: [id number] Name: DI ZAPATA Rep #: [id number] : 1945 72 From: Christina Glover MD PCP: Aaron Tidwell MD Status: ADM IN - Discharge Diagnoses Current Active Problems: Current Active and Chronic Problems (Last Updated 10/11/17 @ 09:06 by Gosia Martinez) Lower GI bleed (Acute) Chronic A. fib on Xarelto (Acute) Recurrent falls (Acute) Generalized weakness (Acute) Reason(s) for Visit for Discharge Instructions: Rectal bleeding You will use the following diet at home:: Cardiac Your food should be the consistency of: Regular Your liquids should be the consistency of: Regular/Thin Discharge Activity: Return to Normal Activity Additional Instructions: He will have home health nurse and physical therapy as well as occupational therapy at home. Denies [id number] wounds. He will need to follow-up with Dr. Childers in the outpatient and also see Dr. Alvarado for colonoscopy in the outpatient. Please come back to the ED if you affect rectal bleeding. Allergies/Adverse Reactions: Allergies amlodipine besylate [From Norvasc] Allergy (Verified 12/07/17 06:11) Unknown Shortness of breath ceftriaxone Allergy (Verified 12/07/17 06:11) Rash doxazosin mesylate [From Cardura] Allergy (Verified 12/07/17 06:11) Unknown Pt doesn't remember doxycycline Allergy (Verified 12/07/17 06:11) Unknown Pt doesn't remember enalapril maleate [From Vasotec] Allergy (Verified 12/07/17 06:11) Rash enalaprilat dihydrate [From Vasotec] Allergy (Verified 12/07/17 06:11) Rash hydroxyzine HCl [From Vistaril] Allergy (Verified 12/07/17 06:11) Rash hydroxyzine pamoate [From Vistaril] Allergy (Verified 12/07/17 06:11) Rash meperidine HCl [From Demerol] Allergy (Verified 12/07/17 06:11) Rash Sulfa (Sulfonamide Antibiotics) Allergy (Verified 12/07/17 06:11) Hives sulfamethoxazole [From Bactrim] Allergy (Verified 12/04/17 05:42) Hives trimethoprim [From Bactrim] Allergy (Verified 12/04/17 05:42) Hives Medications to take at Discharge Gabapentin [Neurontin] 100 mg PO 4X/DAY 09/29/17 Fluoxetine [Prozac] 20 mg PO DAILY 09/30/17 furosemide 40 mg tablet 20 mg PO QODAY tab 10/11/17 Lysine [l-Lysine] 1,000 mg PO DAILY 11/18/17 potassium chloride ER 10 mEq tablet,extended release 10 meq PO QDAY #30 tab 11/27/17 Hydrocodone/Acetaminophen [Hydrocodone-Acetamin 5-325 mg] 1 tab PO BID 12/04/17 Ensure Clear 120 ml PO 4X/DAY #100 liquid 12/12/17 Metoprolol Tartrate [Lopressor (beta alok)] 25 mg PO BID #60 tab 12/12/17 Pantoprazole Sodium [Protonix] 40 mg PO BID #60 tab 12/12/17 Senna/Docusate Sodium [Senokot-S] 2 tab PO BID PRN #30 tab 12/12/17 The following prescriptions were given: Metoprolol Tartrate [Lopressor (beta alok)] 25 mg PO BID #60 tab Pantoprazole Sodium [Protonix] 40 mg PO BID #60 tab Senna/Docusate Sodium [Senokot-S] 2 tab PO BID PRN #30 tab PRN Reason: constipation Ensure Clear 120 ml PO 4X/DAY #100 liquid Primary Care Physician: Aaron Tidwell MD [Primary Care Provider] - Please follow up with your Primary Care Physician in: within 2 weeks Please Follow Up With: Huang Alvarado MD When: within 2 weeks Please Follow Up With: Epifanio Childers MD When: in 2 weeks Proposed Discharge Date: 12/12/17 12/12/17 1039 <Electronically signed by Christina Glover MD> Date Christina Glover MD CC: Huang Alvarado MD; Eliu Mitchell D.O.; Aaron Tidwell MD BEDSIDE GLUCOSE Collected: 12/12/2017 Status: F Source: CELIO 6:55 AM [facility] REPOSITORY TYPE CODE TESTS RESULT OUT OF RANGE REFERENCE UNITS LAB L501.080 70-110 mg/dL Normal BEDSIDE GLU 92 Result Comment: MANAGEMENT OF PATIENT CARE PER NURSING PROTOCOL Performed By: #### L501.080 #### [facility] Laboratory Point of Care [address] [place] [address] BASIC METABOLIC Collected: 12/12/2017 Status: F Source: CELIO PROFILE (BMP) 5:35 AM [facility] REPOSITORY Order Comment: SPECIMEN OBTAINED FROM LINE DRAW TYPE CODE TESTS RESULT OUT OF RANGE REFERENCE UNITS LAB L501.0100 74-106 mg/dL High GLU 110 Result Comment: Fasting Glucose result from 100 to 125 mg/dL suggests IMPAIRED HOMEOSTASIS per A.D.A. criteria. Please note revised GLUCOSE reference range effective 2017. LAB L501.1000 7-18 mg/dL High BUN 20 LAB L501.1100 0.55-1.02 mg/dL High CREAT,SERUM 1.25 Result Comment: The validity of the calculated GFR AND GFRAA in patients over 70 years has not been determined. Clinical correlation is essential. LAB L501.1110 >60 mL/min Low EST GFR 45 Result Comment: Non- GFR Calc LAB L501.1115 >60 mL/min Low EST GFR - AA 54 Result Comment: GFR Calc LAB L501.1255 ml/min Normal Estimated CRCL 34.15 LAB L501.1300 10-20 RATIO Normal BUN/CRE 16.0 LAB L501.2200 8.5-10 mg/dL Low .1 CA 8.2 LAB L501.5300 136-14 mmol/L Normal 5 NA 141 LAB L501.5600 3.5-5. mmol/L Low 1 K 3.4 LAB L501.5900 98-107 mmol/L Normal CL 104 LAB L501.6100 21.0-3 mmol/L Normal 2.0 CO2 31.0 LAB L501.6200 5-15 Normal GAP 6 Performed By: #### L500.2500 #### [facility] [place], [address] CBC W/DIFF, AUTOMATED Collected: 12/12/2017 Status: F Source: CELIO 5:35 AM [facility] REPOSITORY Order Comment: SPECIMEN OBTAINED FROM LINE DRAW TYPE CODE TESTS RESULT OUT OF RANGE REFERENCE UNITS LAB L100.1000 4.4-11.0 K/mm3 High WBC 13.7 LAB L100.1200 4.2-5.4 M/mm3 Low RBC 3.69 LAB L100.1300 12.0-15.0 g/dl Low HGB 8.5 LAB L100.1400 37-47 % Low HCT 27.6 LAB L100.1500 81-99 fL Low MCV 74.8 LAB L100.1600 27.0-32.0 pg Low MCH 23.0 LAB L100.1700 32-36 g/gl Low MCHC 30.8 LAB L100.1810 11.6-14.6 % High RDW CV 25.2 LAB L100.1820 35.1-43.9 fl High RDW SD 65.8 LAB L100.1900 150-450 K/mm3 Normal PLT 282 LAB L100.2000 6.2-12.0 fl Normal MPV 9.2 LAB L100.2100 47-70 % High NEUT% 82.9 LAB L100.2200 19-41 % Low LY% 8.3 LAB L100.2300 0-10 % Normal MONO% 8.5 LAB L100.2400 0-5 % Normal EO% 0.0 LAB L100.2500 0-1 % Normal BASO% 0.0 LAB L100.2550 0.0-0.9 % Normal IM GRAN % 0.300 Result Comment: IG% - Immature Granulocytes (promyelocytes, myelocytes and metamyelocytes) > 1% indicates that a LEFT SHIFT is Present. LAB L100.2620 2.0-7.7 X10 3/uL Absolute Neut High 11.4 LAB L100.2720 0.83-4.51 X10 3/ul Absolute Lymph Normal 1.14 LAB L100.4500 SMEAR COMMENT Normal SCANNED LAB L100.7300 ANISO Normal 2+ LAB L100.7600 HYPOCHROMASIA Normal 3+ LAB L100.7700 MICROCYTES Normal 2+ LAB L100.8600 TARGET CELLS Normal 2+ Performed By: #### L100.0100 #### [facility] [address] [place], [address] BEDSIDE GLUCOSE Collected: 12/12/2017 Status: F Source: CELIO 3:07 AM [facility] REPOSITORY TYPE CODE TESTS RESULT OUT OF REFERENCE UNITS RANGE LAB L501.080 70-110 mg/dL High BEDSIDE GLU 135 Result Comment: MANAGEMENT OF PATIENT CARE PER NURSING PROTOCOL Performed By: #### L501.080 #### [facility] Laboratory Point of Care [address] [place] [address] BEDSIDE GLUCOSE Collected: 12/11/2017 Status: F Source: CELIO 10:15 PM [facility] REPOSITORY TYPE CODE TESTS RESULT OUT OF REFERENCE UNITS RANGE LAB L501.080 70-110 mg/dL High BEDSIDE GLU 210 Result Comment: MANAGEMENT OF PATIENT CARE PER NURSING PROTOCOL Performed By: #### L501.080 #### [facility] Laboratory Point of Care [address] [place] [address] BEDSIDE GLUCOSE Collected: 12/11/2017 Status: F Source: CELIO 4:42 PM [facility] REPOSITORY TYPE CODE TESTS RESULT OUT OF REFERENCE UNITS RANGE LAB L501.080 70-110 mg/dL High BEDSIDE GLU 165 Result Comment: MANAGEMENT OF PATIENT CARE PER NURSING PROTOCOL Performed By: #### L501.080 #### [facility] Laboratory Point of Care [address] [place] [address] 12 LEAD ELECTROCARDIOGRAM Observed: 12/11/2017 Status: F Source: CELIO 1:49 PM [facility] REPOSITORY [facility] Cardiovascular Services [address] [place] [address] 12 Lead EKG 12/07/17 0641 MR#: [id number] Acct: [id number] Name: DI ZAPTAA Rep #: [id number] : 1945 [id number] From: Huang Farr MD Attending Dr: Christina Glover MD Status: ADM IN Ordering Dr: Maddie Tinoco MD Date: 12/07/17 Location: PCU Sex: F C Admitted: 12/07/17 Test Reason : Blood Pressure : / mmHG Vent. Rate : 117 BPM Atrial Rate : 122 BPM P-R Int : 000 ms QRS Dur : 086 ms QT Int : 292 ms P-R-T Axes : 000 073 247 degrees QTc Int : [address] AND T wave abnormality, consider inferolateral ischemia Abnormal ECG Confirmed by HUANG FARR ([id number]), acquisitions editor CARLENE NELSON ([id number]) on 12/11/2017 1:49:21 PM Referred By: Meche Delvalle Confirmed By:HUANG FARR 12/11/17 1349 Date Huang Farr MD CC: Maddie Tinoco MD; Aaron Tidwell MD Signed BEDSIDE GLUCOSE Collected: 12/11/2017 Status: F Source: CELIO 11:22 AM [facility] REPOSITORY TYPE CODE TESTS RESULT OUT OF RANGE REFERENCE UNITS LAB L501.080 70-110 mg/dL Normal BEDSIDE GLU 104 Result Comment: MANAGEMENT OF PATIENT CARE PER NURSING PROTOCOL Performed By: #### L501.080 #### [facility] Laboratory Point of Care [address] [place], [place] [address] BEDSIDE GLUCOSE Collected: 12/11/2017 Status: F Source: CELIO 6:43 AM [facility] REPOSITORY TYPE CODE TESTS RESULT OUT OF RANGE REFERENCE UNITS LAB L501.080 70-110 mg/dL Normal BEDSIDE GLU 104 Result Comment: MANAGEMENT OF PATIENT CARE PER NURSING PROTOCOL Performed By: #### L501.080 #### [facility] Laboratory Point of Care [address] [place] [address] CBC-COMPLETE BLOOD CNT Collected: 12/11/2017 Status: F Source: CELIO NO DIFF 6:00 AM [facility] REPOSITORY Order Comment: SPECIMEN OBTAINED FROM LINE DRAW TYPE CODE TESTS RESULT OUT OF RANGE REFERENCE UNITS LAB L100.1000 4.4-11.0 K/mm3 High WBC 17.3 LAB L100.1200 4.2-5.4 M/mm3 Low RBC 3.98 LAB L100.1300 12.0-15.0 g/dl Low HGB 9.3 LAB L100.1400 37-47 % Low HCT 29.4 LAB L100.1500 81-99 fL Low MCV 73.9 LAB L100.1600 27.0-32.0 pg Low MCH 23.4 LAB L100.1700 32-36 g/gl Low MCHC 31.6 LAB L100.1810 11.6-14.6 % High RDW CV 25.5 LAB L100.1820 35.1-43.9 fl High RDW SD 63.1 LAB L100.1900 150-450 K/mm3 Normal PLT 396 LAB L100.2000 6.2-12.0 fl Normal MPV 9.9 Performed By: #### L100.0500, L100.4500 #### [facility] [address] [place], [place], [address] DIFFERENTIAL COMMENT Collected: 12/11/2017 Status: F Source: CELIO 6:00 AM [facility] REPOSITORY Order Comment: SPECIMEN OBTAINED FROM LINE DRAW TYPE CODE TESTS RESULT OUT OF RANGE REFERENCE UNITS LAB L100.4500 Normal SMEAR COMMENT SCANNED Result Comment: 3+ ANISOCYTOSIS 1+ HYPOCHROMASIA 2+ TARGET CELLS 2+ MICROCYTOSIS Performed By: #### L100.0500, L100.4500 #### [facility] [address] [place], [place], [address] TROPONIN-I Collected: 12/11/2017 Status: F Source: CELIO 5:30 AM [facility] REPOSITORY Order Comment: SPECIMEN OBTAINED FROM LINE DRAW 'TROP' Serial specimen #1, #2, #3, or #4: 3 TYPE CODE TESTS RESULT OUT OF RANGE REFERENCE UNITS LAB L501.4010 <0.06 ng/mL Normal < 0.02 TROPONIN-I Result Comment: TROPONIN-I EXPECTED VALUES <0.05 NEGATIVE 0.06 - 0.59 AT RISK OF AR > OR = 0.60 SUGGEST AR Performed By: #### L501.4010 #### [facility] [address] [place], [place], [address] BASIC METABOLIC Collected: 12/11/2017 Status: F Source: CELIO PROFILE (BMP) 5:30 AM [facility] REPOSITORY Order Comment: SPECIMEN OBTAINED FROM LINE DRAW TYPE CODE TESTS RESULT OUT OF RANGE REFERENCE UNITS LAB L501.0100 74-106 mg/dL Normal GLU 100 Result Comment: Fasting Glucose result from 100 to 125 mg/dL suggests IMPAIRED HOMEOSTASIS per A.D.A. criteria. Please note revised GLUCOSE reference range effective 2017. LAB L501.1000 7-18 mg/dL Normal BUN 18 LAB L501.1100 0.55-1.02 mg/dL Normal CREAT,SERUM 1.01 Result Comment: The validity of the calculated GFR AND GFRAA in patients over 70 years has not been determined. Clinical correlation is essential. LAB L501.1110 >60 mL/min Low EST GFR 57 Result Comment: Non- GFR Calc LAB L501.1115 >60 mL/min Normal EST GFR - AA 70 Result Comment: GFR Calc LAB L501.1255 ml/min Normal Estimated CRCL 42.26 LAB L501.1300 10-20 RATIO Normal BUN/CRE 17.8 LAB L501.2200 8.5-10 mg/dL Low .1 CA 8.4 LAB L501.5300 136-14 mmol/L Normal 5 NA 141 LAB L501.5600 3.5-5. mmol/L Normal 1 K 3.6 LAB L501.5900 98-107 mmol/L Normal CL 105 LAB L501.6100 21.0-3 mmol/L Normal 2.0 CO2 28.0 LAB L501.6200 5-15 Normal GAP 8 Performed By: #### L500.2500 #### [facility] [address] [place], [place], [address] BEDSIDE GLUCOSE Collected: 12/11/2017 Status: F Source: CELIO 3:16 AM [facility] REPOSITORY TYPE CODE TESTS RESULT OUT OF REFERENCE UNITS RANGE LAB L501.080 70-110 mg/dL High BEDSIDE GLU 121 Result Comment: MANAGEMENT OF PATIENT CARE PER NURSING PROTOCOL Performed By: #### L501.080 #### [facility] Laboratory Point of Care [address] [place], [place] [address] TROPONIN-I Collected: 12/11/2017 Status: F Source: CELIO 1:45 AM [facility] REPOSITORY Order Comment: 'TROP' Serial specimen #1, #2, #3, or #4: 2 TYPE CODE TESTS RESULT OUT OF RANGE REFERENCE UNITS LAB L501.4010 <0.06 ng/mL Normal < 0.02 TROPONIN-I Result Comment: TROPONIN-I EXPECTED VALUES <0.05 NEGATIVE 0.06 - 0.59 AT RISK OF AR > OR = 0.60 SUGGEST AR Performed By: #### L501.4010 #### [facility] [address] [place], [address] TROPONIN-I Collected: 12/10/2017 Status: F Source: CELIO 10:10 PM [facility] REPOSITORY Order Comment: 'TROP' Serial specimen #1, #2, #3, or #4: 1 TYPE CODE TESTS RESULT OUT OF RANGE REFERENCE UNITS LAB L501.4010 <0.06 ng/mL Normal < 0.02 TROPONIN-I Result Comment: TROPONIN-I EXPECTED VALUES <0.05 NEGATIVE 0.06 - 0.59 AT RISK OF AR > OR = 0.60 SUGGEST AR Performed By: #### L501.4010 #### [facility] [address] [place], [address] BEDSIDE GLUCOSE Collected: 12/10/2017 Status: F Source: CELIO 9:15 PM [facility] REPOSITORY TYPE CODE TESTS RESULT OUT OF REFERENCE UNITS RANGE LAB L501.080 70-110 mg/dL High BEDSIDE GLU 163 Result Comment: Insulin Given MANAGEMENT OF PATIENT CARE PER NURSING PROTOCOL Performed By: #### L501.080 #### [facility] Laboratory Point of Care [address] [place] [address] BEDSIDE GLUCOSE Collected: 12/10/2017 Status: F Source: CELIO 4:33 PM [facility] REPOSITORY TYPE CODE TESTS RESULT OUT OF REFERENCE UNITS RANGE LAB L501.080 70-110 mg/dL High BEDSIDE GLU 155 Result Comment: MANAGEMENT OF PATIENT CARE PER NURSING PROTOCOL Performed By: #### L501.080 #### [facility] Laboratory Point of Care [address] [place] [address] BEDSIDE GLUCOSE Collected: 12/10/2017 Status: F Source: CELIO 11:44 AM [facility] REPOSITORY TYPE CODE TESTS RESULT OUT OF RANGE REFERENCE UNITS LAB L501.080 70-110 mg/dL Normal BEDSIDE GLU 94 Result Comment: MANAGEMENT OF PATIENT CARE PER NURSING PROTOCOL Performed By: #### L501.080 #### [facility] Laboratory Point of Care [address] [place], [place] [address] BEDSIDE GLUCOSE Collected: 12/10/2017 Status: F Source: CELIO 6:42 AM [facility] REPOSITORY TYPE CODE TESTS RESULT OUT OF RANGE REFERENCE UNITS LAB L501.080 70-110 mg/dL Normal BEDSIDE GLU 96 Result Comment: MANAGEMENT OF PATIENT CARE PER NURSING PROTOCOL Performed By: #### L501.080 #### [facility] Laboratory Point of Care [address] [place] [address] BASIC METABOLIC Collected: 12/10/2017 Status: F Source: CELIO PROFILE (BMP) 4:50 AM [facility] REPOSITORY Order Comment: SPECIMEN OBTAINED FROM LINE DRAW TYPE CODE TESTS RESULT OUT OF RANGE REFERENCE UNITS LAB L501.0100 74-106 mg/dL Normal GLU 101 Result Comment: Fasting Glucose result from 100 to 125 mg/dL suggests IMPAIRED HOMEOSTASIS per A.D.A. criteria. Please note revised GLUCOSE reference range effective 2017. LAB L501.1000 7-18 mg/dL Normal BUN 18 LAB L501.1100 0.55-1.02 mg/dL Normal CREAT,SERUM 1.00 Result Comment: The validity of the calculated GFR AND GFRAA in patients over 70 years has not been determined. Clinical correlation is essential. LAB L501.1110 >60 mL/min Low EST GFR 58 Result Comment: Non- GFR Calc LAB L501.1115 >60 mL/min Normal EST GFR - AA 70 Result Comment: GFR Calc LAB L501.1255 ml/min Normal Estimated CRCL 42.68 LAB L501.1300 10-20 RATIO Normal BUN/CRE 18.0 LAB L501.2200 8.5-10 mg/dL Low .1 CA 8.3 LAB L501.5300 136-14 mmol/L Normal 5 NA 140 LAB L501.5600 3.5-5. mmol/L Normal 1 K 3.5 LAB L501.5900 98-107 mmol/L Normal CL 105 LAB L501.6100 21.0-3 mmol/L Normal 2.0 CO2 28.0 LAB L501.6200 5-15 Normal GAP 7 Performed By: #### L500.2500 #### [facility] [place], [address] CBC W/DIFF, AUTOMATED Collected: 12/10/2017 Status: F Source: [place] 4:50 AM [facility] REPOSITORY Order Comment: SPECIMEN OBTAINED FROM LINE DRAW TYPE CODE TESTS RESULT OUT OF RANGE REFERENCE UNITS LAB L100.1000 4.4-11.0 K/mm3 High WBC 11.5 LAB L100.1200 4.2-5.4 M/mm3 Low RBC 3.80 LAB L100.1300 12.0-15.0 g/dl Low HGB 8.7 LAB L100.1400 37-47 % Low HCT 28.0 LAB L100.1500 81-99 fL Low MCV 73.7 LAB L100.1600 27.0-32.0 pg Low MCH 22.9 LAB L100.1700 32-36 g/gl Low MCHC 31.1 LAB L100.1810 11.6-14.6 % High RDW CV 24.2 LAB L100.1820 35.1-43.9 fl High RDW SD 62.6 LAB L100.1900 150-450 K/mm3 Normal PLT 287 LAB L100.2000 6.2-12.0 fl Normal MPV 9.7 LAB L100.2100 47-70 % High NEUT% 81.9 LAB L100.2200 19-41 % Low LY% 10.0 LAB L100.2300 0-10 % Normal MONO% 7.8 LAB L100.2400 0-5 % Normal EO% 0.0 LAB L100.2500 0-1 % Normal BASO% 0.0 LAB L100.2550 0.0-0.9 % Normal IM GRAN % 0.300 Result Comment: IG% - Immature Granulocytes (promyelocytes, myelocytes and metamyelocytes) > 1% indicates that a LEFT SHIFT is Present. LAB L100.2620 2.0-7.7 X10 3/uL Absolute Neut High 9.4 LAB L100.2720 0.83-4.51 X10 3/ul Absolute Lymph Normal 1.15 LAB L100.5500 ADEQ PLT EST Normal ADEQUATE LAB L100.7300 ANISO Normal 2+ LAB L100.7600 HYPOCHROMASIA Normal 2+ LAB L100.8600 TARGET CELLS Normal RARE Performed By: #### L100.0100 #### [facility] [address] [place], [address] BEDSIDE GLUCOSE Collected: 12/10/2017 Status: F Source: [place] 3:47 AM [facility] REPOSITORY TYPE CODE TESTS RESULT OUT OF RANGE REFERENCE UNITS LAB L501.080 70-110 mg/dL Normal BEDSIDE GLU 110 Result Comment: MANAGEMENT OF PATIENT CARE PER NURSING PROTOCOL Performed By: #### L501.080 #### [facility] Point of Care [address] [place] [address] BEDSIDE GLUCOSE Collected: 12/09/2017 Status: F Source: [place] 10:08 PM [facility] REPOSITORY TYPE CODE TESTS RESULT OUT OF REFERENCE UNITS RANGE LAB L501.080 70-110 mg/dL High BEDSIDE GLU 149 Result Comment: MANAGEMENT OF PATIENT CARE PER NURSING PROTOCOL Performed By: #### L501.080 #### [facility] Point of Care [address] [place] [address] BEDSIDE GLUCOSE Collected: 12/09/2017 Status: F Source: [place] 3:48 PM [facility] REPOSITORY TYPE CODE TESTS RESULT OUT OF REFERENCE UNITS RANGE LAB L501.080 70-110 mg/dL High BEDSIDE GLU 175 Result Comment: MANAGEMENT OF PATIENT CARE PER NURSING PROTOCOL Performed By: #### L501.080 #### [facility] Point of Care [address] [place] [address] BEDSIDE GLUCOSE Collected: 12/09/2017 Status: F Source: [place] 10:11 AM [facility] REPOSITORY TYPE CODE TESTS RESULT OUT OF RANGE REFERENCE UNITS LAB L501.080 70-110 mg/dL Normal BEDSIDE GLU 90 Result Comment: MANAGEMENT OF PATIENT CARE PER NURSING PROTOCOL Performed By: #### L501.080 #### [facility] Point of Care [address] [place] [address] BEDSIDE GLUCOSE Collected: 12/09/2017 Status: F Source: CELIO 6:30 AM [facility] REPOSITORY TYPE CODE TESTS RESULT OUT OF REFERENCE UNITS RANGE LAB L501.080 70-110 mg/dL High BEDSIDE GLU 125 Result Comment: MANAGEMENT OF PATIENT CARE PER NURSING PROTOCOL Performed By: #### L501.080 #### [facility] [place] [address] [place] [address] CBC W/DIFF, AUTOMATED Collected: 12/09/2017 Status: F Source: CELIO 4:00 AM [facility] REPOSITORY TYPE CODE TESTS RESULT OUT OF RANGE REFERENCE UNITS LAB L100.1000 4.4-11.0 K/mm3 Normal WBC 9.9 LAB L100.1200 4.2-5.4 M/mm3 Low RBC 3.50 LAB L100.1300 12.0-15.0 g/dl Low HGB 7.6 LAB L100.1400 37-47 % Low HCT 24.7 LAB L100.1500 81-99 fL Low MCV 70.6 LAB L100.1600 27.0-32.0 pg Low MCH 21.7 LAB L100.1700 32-36 g/gl Low MCHC 30.8 LAB L100.1810 11.6-14.6 % High RDW CV 23.2 LAB L100.1820 35.1-43.9 fl High RDW SD 57.9 LAB L100.1900 150-450 K/mm3 Normal PLT 276 LAB L100.2000 6.2-12.0 fl Normal MPV 9.4 LAB L100.2100 47-70 % High NEUT% 86.9 LAB L100.2200 19-41 % Low LY% 9.4 LAB L100.2300 0-10 % Normal MONO% 3.3 LAB L100.2400 0-5 % Normal EO% 0.0 LAB L100.2500 0-1 % Normal BASO% 0.1 LAB L100.2550 0.0-0.9 % Normal IM GRAN % 0.300 Result Comment: IG% - Immature Granulocytes (promyelocytes, myelocytes and metamyelocytes) > 1% indicates that a LEFT SHIFT is Present. LAB L100.2620 2.0-7.7 X10 3/uL High Absolute Neut 8.6 LAB L100.2720 0.83-4.51 X10 3/ul Normal Absolute Lymph 0.93 LAB L100.4500 Normal SMEAR COMMENT SCANNED Result Comment: 1+ ANISOCYTOSIS Performed By: #### L100.0100 #### [facility] [address] [facility] [address] [place], [place], [address] BASIC METABOLIC Collected: 12/09/2017 Status: F Source: [place] PROFILE (BMP) 4:00 AM [facility] REPOSITORY TYPE CODE TESTS RESULT OUT OF RANGE REFERENCE UNITS LAB L501.0100 74-106 mg/dL High GLU 140 Result Comment: Fasting Glucose result greater than or equal to 126 mg/dL suggests DIABETES MELLITUS per A.D.A. criteria. Please note revised GLUCOSE reference range effective 2017. LAB L501.1000 7-18 mg/dL High BUN 20 LAB L501.1100 0.55-1.02 mg/dL High CREAT,SERUM 1.06 Result Comment: The validity of the calculated GFR AND GFRAA in patients over 70 years has not been determined. Clinical correlation is essential. LAB L501.1110 >60 mL/min Low EST GFR 54 Result Comment: Non- GFR Calc LAB L501.1115 >60 mL/min Normal EST GFR - AA 66 Result Comment: GFR Calc LAB L501.1255 ml/min Normal Estimated CRCL 40.27 LAB L501.1300 10-20 RATIO Normal BUN/CRE 18.9 LAB L501.2200 8.5-10 mg/dL Low .1 CA 8.3 LAB L501.5300 136-14 mmol/L Normal 5 NA 138 LAB L501.5600 3.5-5. mmol/L Normal 1 K 4.0 LAB L501.5900 98-107 mmol/L Normal CL 107 LAB L501.6100 21.0-3 mmol/L Normal 2.0 CO2 24.0 LAB L501.6200 5-15 Normal GAP 7 Performed By: #### L500.2500 #### [facility] [address] [place], [place], [address] BEDSIDE GLUCOSE Collected: 12/09/2017 Status: F Source: [place] 3:16 AM [facility] REPOSITORY TYPE CODE TESTS RESULT OUT OF REFERENCE UNITS RANGE LAB L501.080 70-110 mg/dL High BEDSIDE GLU 158 Result Comment: MANAGEMENT OF PATIENT CARE PER NURSING PROTOCOL Performed By: #### L501.080 #### [facility] Point of Care [address] [place] [address] BEDSIDE GLUCOSE Collected: 12/08/2017 Status: F Source: [place] 10:01 PM [facility] REPOSITORY TYPE CODE TESTS RESULT OUT OF REFERENCE UNITS RANGE LAB L501.080 70-110 mg/dL High BEDSIDE GLU 155 Result Comment: MANAGEMENT OF PATIENT CARE PER NURSING PROTOCOL Performed By: #### L501.080 #### [facility] Point of Care [address] [place] [address] BEDSIDE GLUCOSE Collected: 12/08/2017 Status: F Source: [place] 4:28 PM [facility] REPOSITORY TYPE CODE TESTS RESULT OUT OF REFERENCE UNITS RANGE LAB L501.080 70-110 mg/dL High BEDSIDE GLU 154 Result Comment: MANAGEMENT OF PATIENT CARE PER NURSING PROTOCOL Performed By: #### L501.080 #### [facility] Point of Care [address] [place] [address] BEDSIDE GLUCOSE Collected: 12/08/2017 Status: F Source: [place] 1:09 PM [facility] REPOSITORY TYPE CODE TESTS RESULT OUT OF RANGE REFERENCE UNITS LAB L501.080 70-110 mg/dL Normal BEDSIDE GLU 107 Result Comment: MANAGEMENT OF PATIENT CARE PER NURSING PROTOCOL Performed By: #### L501.080 #### [facility] Point of Care [address] [place] [address] CXR FOR LINE PLACEMENT Observed: 12/08/2017 Status: F Source: [place] 10:33 AM [facility] REPOSITORY [facility] Imaging Services [address] [place] [address] CXR for Line Placement MR#: [id number] Acct: [id number] Name: DI ZAPATA Rep #: [id number] : 1945 F 72 From: Carlos Cai MD PCP: Aaron Tidwell MD Status: ADM IN Study: CXR for Line Placement Date of Exam: 12/08/17 Exam# [id number] Ordering Dr: Eliu Mitchell DO STUDY: X-RAY CHEST REASON FOR EXAM: Female, 72 years old. PIC line placement. TECHNIQUE: Single AP portable view of the chest. COMPARISON: Comparison is made with prior study dated December 07, 2017. FINDINGS: A right-sided PICC line catheter is present. The tip is at the junction of the superior vena cava and right atrium. A loop recording device is seen in the left lower hemithorax. Stable mild increased markings bilaterally suggest lobar scarring. There is no demonstrated pleural abnormality. There is mild cardiac enlargement. Normal mediastinum and kenn. Normal visualized pulmonary arteries. There is atherosclerotic calcification of the aortic arch with tortuosity. There are diffuse degenerative changes of the visualized thoracic spine. Normal visualized ribs, clavicles, and shoulders. There is no demonstrated abnormality of the visualized soft tissue structures of the upper abdomen. RAD/CXR for Line Placement IMPRESSION: The tip of the right PICC line catheter is at the junction of the superior vena cava and right atrium. The lungs are stable. Electronically Signed: Carlos Cai MD at 12:28 EDT Tel [phone], Service support , CC: Eliu Mitchell D.O.; Aaron Tidwell MD Oxyacetylene Cutter: Signed PROTHROMBIN TIME W/INR Collected: 12/08/2017 Status: F Source: [place] 10:30 AM [facility] REPOSITORY TYPE CODE TESTS RESULT OUT OF RANGE REFERENCE UNITS LAB L300.4150 11.7-14.9 SECONDS High PROTIME 20.0 LAB L300.4200 Normal INR 1.7 Performed By: #### L300.3900 #### [facility], [address] CBC-COMPLETE BLOOD CNT Collected: 12/08/2017 Status: F Source: [place] NO DIFF 9:00 AM [facility] REPOSITORY TYPE CODE TESTS RESULT OUT OF RANGE REFERENCE UNITS LAB L100.1000 4.4-11.0 K/mm3 Normal WBC 9.7 LAB L100.1200 4.2-5.4 M/mm3 Low RBC 3.83 LAB L100.1300 12.0-15.0 g/dl Low HGB 8.4 LAB L100.1400 37-47 % Low HCT 27.0 LAB L100.1500 81-99 fL Low MCV 70.5 LAB L100.1600 27.0-32.0 pg Low MCH 21.9 LAB L100.1700 32-36 g/gl Low MCHC 31.1 LAB L100.1810 11.6-14.6 % High RDW CV 23.6 LAB L100.1820 35.1-43.9 fl High RDW SD 56.3 LAB L100.1900 150-450 K/mm3 Normal PLT 310 LAB L100.2000 6.2-12.0 fl Normal MPV 10.1 Performed By: #### L100.0500, L100.4500 #### [facility] [address] [facility] [address] [place], [place], [address] DIFFERENTIAL COMMENT Collected: 12/08/2017 Status: F Source: [place] 9:00 AM [facility] REPOSITORY TYPE CODE TESTS RESULT OUT OF RANGE REFERENCE UNITS LAB L100.4500 Normal SMEAR COMMENT COMMENT Result Comment: SLIDE SCANNED - 1+ ANISO NOTED. Performed By: #### L100.0500, L100.4500 #### [facility] [address] [facility] [place], [address] HISTORY AND PHYSICAL Observed: 12/08/2017 Status: F Source: [place] EXAM 8:36 AM [facility] REPOSITORY [facility] Medical Records Department [address] [facility] [place] [address] History and Physical 12/07/17 0933 MR#: [id number] Acct: [id number] Name: DI ZAPATA Rep #: [id number] : [id number] From: Frederic Lopez MD PCP: Aaron Tidwell MD Status: ADM IN Y Location: ICU ICU03-1 Problem List (1) Calcinosis Status: Chronic (2) Edema, lower extremity Status: Chronic (3) Pulmonary hypertension, secondary Status: Chronic (4) History of cardiac radiofrequency ablation (RFA) Status: Chronic Comment: 1st part of MAZE procedure Lt Atrial Ablation 01/12/17 @ [facility] (5) Dyspnea on exertion Status: Acute (6) Localized edema Status: Chronic (7) Heart failure with 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 Status: Chronic (8) Cellulitis Status: Resolved (9) MCFP current use of anticoagulant Status: Chronic (10) Chronic atrial fibrillation Status: Chronic Comment: DCCV 10/10, 10/2015; MAZE procedure @ [facility] 01/12/2017; (11) Status post placement of implantable loop recorder Status: Chronic (12) History of maze procedure Status: Chronic (13) Other secondary pulmonary hypertension Status: Chronic (14) Chronic diastolic (congestive) heart failure Status: Chronic (15) GI bleeding Status: Resolved Qualifiers: GI bleed type/associated pathology: unspecified gastrointestinal hemorrhage type Qualified Code(s): K92.2 - Gastrointestinal hemorrhage, unspecified (16) Symptomatic anemia Status: Chronic (17) Hypertension Status: Chronic Qualifiers: (18) Type 2 diabetes mellitus Status: Chronic Qualifiers: (19) Lung nodule Status: Chronic (20) Coumadin-induced coagulopathy Status: Resolved (21) Chronic kidney disease, stage 3 Status: Chronic (22) Shortness of breath Status: Acute (23) Spinal stenosis of lumbar region with radiculopathy Status: Chronic (24) PAD (peripheral artery disease) Status: Chronic (25) Venous stasis ulcer of left lower leg with edema of left lower leg Status: Chronic (26) Venous stasis ulcer of right lower leg with edema of right lower leg Status: Chronic (27) Arthralgia Status: Chronic Qualifiers: (28) Myalgia Status: Chronic (29) Mass of soft tissue of left lower extremity Status: Chronic Comment: left inner upper thigh - ? calciphylaxis vs. erythema nodosum vs. dermatomyositis vs. panniculitis (30) Mass of soft tissue of right lower extremity Status: Chronic Comment: right inner upper thigh - ? calciphylaxis vs. erythema nodosum vs. dermatomyositis vs. panniculitis (31) Lower GI bleed Status: Acute (32) Chronic A. fib on Xarelto Status: Acute (33) Recurrent falls Status: Acute (34) Generalized weakness Status: Acute History of Present Illness Date of Admission: 12/07/17 Chief Complaint: Bright red rectal bleed for 1 week. generalized weakness for 3-4 weeks. The patient is a 72 year old F with multiple comorbidities including chronic heart failure with preserved EF, bilateral lower extremity pain and cellulitis, chronic A. fib on Xarelto came to ER with generalized weakness for 3-4 weeks and rectal bleed, bright red for last 1 week. Patient has been feeling progressively weak and had fall first 1 last week Monday for which she had a peña in the head in ER and then last 1 3 days ago on Monday for which she felt on the arm of the chair and has bruise on the right side of lower back. Patient did not had syncope. As per her daughter, she has been feeling weak and is not able to walk and using wheelchair which she normally does not use. Patient denies nausea vomiting or abdominal pain. She did not had recent EGD last 4-5 years but denies gastric ulcer/esophageal varices. Patient had colonoscopy by Dr. Alvarado. Patient has other significant comorbidities including peripheral arterial disease, venous stasis pulmonary hypertension and had a maze procedure. [] In ED, she was found to have hemoglobin 8.6 g percent, platelet count 2 75,000. INR was 8.0 and PTT 91.5. Patient's vital was noted, blood pressure 100/52, heart rate 94 pulse ox normal 96% on room air. 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 (Chronic) Chronic atrial fibrillation (Chronic) DCC 10/10, 10/2015; MAZE procedure @ [facility] 01/12/2017; Status post placement of implantable loop recorder (Chronic) History of maze procedure (Chronic) Other secondary pulmonary hypertension (Chronic) Chronic diastolic (congestive) heart failure (Chronic) Symptomatic anemia (Chronic) Hypertension (Chronic) Type 2 diabetes mellitus (Chronic) Lung nodule (Chronic) Chronic kidney disease, stage 3 (Chronic) 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 calciphylaxis vs. erythema nodosum vs. dermatomyositis vs. panniculitis Mass of soft tissue of right lower extremity (Chronic) right inner upper thigh - ? calciphylaxis vs. erythema nodosum vs. dermatomyositis vs. panniculitis Allergies amlodipine besylate [From Norvasc] Allergy (Verified 12/07/17 06:11) Unknown Shortness of breath ceftriaxone Allergy (Verified 12/07/17 06:11) Rash doxazosin mesylate [From Cardura] Allergy (Verified 12/07/17 06:11) Unknown Pt doesn't remember doxycycline Allergy (Verified 12/07/17 06:11) Unknown Pt doesn't remember enalapril maleate [From Vasotec] Allergy (Verified 12/07/17 06:11) Rash enalaprilat dihydrate [From Vasotec] Allergy (Verified 12/07/17 06:11) Rash hydroxyzine HCl [From Vistaril] Allergy (Verified 12/07/17 06:11) Rash hydroxyzine pamoate [From Vistaril] Allergy (Verified 12/07/17 06:11) Rash meperidine HCl [From Demerol] Allergy (Verified 12/07/17 06:11) Rash Sulfa (Sulfonamide Antibiotics) Allergy (Verified 12/07/17 06:11) Hives sulfamethoxazole [From Bactrim] Allergy (Verified 12/04/17 05:42) Hives trimethoprim [From Bactrim] Allergy (Verified 12/04/17 05:42) Hives Home Medications: Ambulatory Orders Medication Instructions Recorded Metoprolol Tartrate [Lopressor 12.5 mg PO BID #90 tab 11/06/15 (beta alok)] Surgical History: cataract, cholecystectomy, hysterectomy, - Smoking Status: Never smoker - *Family History Maternal History Items: No pertinent history Paternal History Items: No pertinent history Review of Systems Constitutional: Reports: Malaise, Weakness, Fatigue HEENT: Denies: Head Aches, Sinus Congestion, Sinus Drainage Cardiovascular: Denies: Chest Pain, Palpitations Respiratory: Reports: Shortness of Breath. Denies: Cough, Shortness of breath at rest, Sputum production Gastrointestinal: Reports: Hematochezia. Denies: Abdominal Pain, Nausea, Vomiting Genitourinary: Denies: Dysuria Musculoskeletal: Reports: Joint Pain, Joint Tenderness, Muscle pain Skin: Denies: Rash, Wounds Neurological: Denies: Numbness, Tingling, Focal weakness Psychiatric: Denies: Anxiety, Depression, Homicidal Ideations, Suicidal Ideations Hematologic/ Lymphatic: Reports: Easy Bruising. Denies: Easy Bleeding VTE Information - Inpt Only VTE Present on Admission: No VTE Mechan Device Prophylaxis: SCD's VTE Pharm Prophylaxis ordered?: No Reason prophylaxis not ordered:: Medical Contraindication Patient Problems: Active and Suspected Problems (Last Updated 10/11/17 @ 09:06 by Gosia Martinez) Lower GI bleed (Acute) Chronic A. fib on Xarelto (Acute) Recurrent falls (Acute) Generalized weakness (Acute) - Physical Exam General: Alert, Oriented x3, Cooperative, Lethargic HEENT: Atraumatic, PERRLA, EOMI, Normocephalic Oral: Dry Mucosa Neck: Supple, No JVD, Negative Carotid Bruits Lungs: Clear to auscultation, No rhonchi, No wheeze, No rales, Diminished Cardiovascular: Regular rate, Normal S1, Normal S2, No murmurs, Irregular Rate Abdomen: Bowel Sounds Present, Soft, Non Tender, Non-Distended Extremities: Capillary Refill Less than 3 Seconds, Edema Skin: Skin Tear, - - Bilateral lower extremity varicose vein and covered with stockings. Musculoskeletal: Arthritic Changes, Muscle Wasting, Tenderness Neurological: Cranial nerves II-XII grossly intact Psych/Mental Status: Normal Affect, Appropriate Vital Signs Temp Pulse Resp BP Pulse Ox 98.4 F 100 16 115/67 98 12/07/17 06:06 12/07/17 09:13 12/07/17 09:13 12/07/17 09:13 12/07/17 09:13 Assessment/Plan Active and Suspected Problems (Last Updated 10/11/17 @ 09:06 by Gosia Martinez) Lower GI bleed (Acute) Chronic A. fib on Xarelto (Acute) Recurrent falls (Acute) Generalized weakness (Acute) The patient is a 72 year old F with multiple comorbidities including chronic heart failure with preserved EF, bilateral lower extremity pain and cellulitis, chronic A. fib on Xarelto came to ER with generalized weakness for 3-4 weeks and rectal bleed, bright red for last 1 week. Patient has been feeling progressively weak and had fall first 1 last week Monday for which she had a peña in the head in ER and then last 1 3 days ago on Monday for which she felt on the arm of the chair and has bruise on the right side of lower back. Patient did not had syncope. As per her daughter, she has been feeling weak and is not able to walk and using wheelchair which she normally does not use. Patient denies nausea vomiting or abdominal pain. She did not had recent EGD last 4-5 years but denies gastric ulcer/esophageal varices. Patient had colonoscopy by Dr. Alvarado. Patient has other significant comorbidities including peripheral arterial disease, venous stasis pulmonary hypertension and had a maze procedure. [] In ED, she was found to have hemoglobin 8.6 g percent, platelet count 2 75,000. INR was 8.0 and PTT 91.5. Patient's vital was noted, blood pressure 100/52, heart rate 94 pulse ox normal 96% on room air. Patient is further admitted in ICU after K Centra given in ER. 1. GI bleed most probably lower GI bleed secondary to Xarelto: Patient is being admitted in the ICU for IV fluid resuscitation, vitals and H AND H and hemodynamic monitoring. IV fluid normal saline for resuscitation. Monitor intake/output. H AND H every [address] Mitchell and surgeon Dr. Alvarado consulted. IV Protonix 40 mg every 12 hourly. Maintain n.p.o. except necessary medications 2. Acute blood loss anemia secondary to GI bleed due to Xarelto: As mentioned above. 3. Chronic A. fib with RVR: With RVR status post maze procedure: Currently heart rate is between 94- 125 bpm. On metoprolol 25 mg twice daily. Metoprolol 2.5 mg IV every 4 hourly as needed for heart rate more than 120/min. 4. Chronic heart failure with preserved EF, peripheral arterial disease, bilateral lower extremity venous stasis venous ulcer; chronic in nature, present on admission: Stable. 5. Diabetes mellitus type 2: On Accu-Chek every 6 hours and cover with NovoLog sliding scale. 6. Recent Klebsiella pneumonia UTI: Culture from December 01 shows Klebsiella pneumonia is. 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 7 other chronic comorbidities include chronic kidney disease stage III, lumbar spinal stenosis with radiculopathy, soft tissue mass of right and left lower extremity due to calciphylaxis versus erythema nodosum versus panniculitis, chronic lung nodule, hypertension and history of recent cellulitis with last admission in September 2017. Multiple comorbidities complicates the present care and prolongs hospital stay and possible delayed recovery. DVT prophylaxis: On bilateral SCDs. Pharmacological prophylaxis contraindicated. Microbiology Past 72 Hours 12/07/17 06:50 Stool Stool Occult Blood (ELENITA) - Final Occult Blood Positive Laboratory Results 12/07/17 07:30: Sodium 135 L, Potassium 5.3 H, Chloride 108 H, Carbon Dioxide 17.0 L, Anion Gap 10, BUN 33 H, Creatinine 1.53 H, Estim Creat Clear Calc 29.12, Est GFR (MDRD) Af Amer 43 L, Est GFR (MDRD) Non-Af 36 L, BUN/Creatinine Ratio 21.6 H, Glucose 108 H, Calcium 8.8, Troponin I < 0.02 12/07/17 07:35: PT 68.1 H, INR 8.0 H*, APTT 91.5 H* 12/07/17 07:35: Lactic Acid 1.4 12/07/17 07:35: Blood Type A POSITIVE, Antibody Screen NEGATIVE 12/07/17 07:35: WBC 12.5 H, RBC 3.97 L, Hgb 8.6 L, Hct 28.1 L, MCV 70.8 L, MCH 21.7 L, MCHC 30.6 L, RDW 23.0 H, RDW Differential 57.9 H, Plt Count 275, MPV 9.8, Immature Gran % (Auto) 0.400, Neut % (Auto) 83.6 H, Lymph % (Auto) 8.3 L, [place] % (Auto) 6.9, Eos % (Auto) 0.6, Baso % (Auto) 0.2, Absolute Neuts (auto) 10.5 H, Absolute Lymphs (auto) 1.04, Total Counted Not Reportable, Differential Comment COMMENT Code Visit Inpatient Naz[facility] AND M: [id number] Init Hosp L3 12/08/17 0836 <Electronically signed by Frederic Lopez MD> Date Frederic Lopez MD Cosigner Signature: Date (if applicable) CC: Frederic Lopez MD; Aaron Tidwell MD Signed CONSULTATION Observed: 12/08/2017 Status: F Source: [place] 7:51 AM [facility] REPOSITORY [facility] Medical Records Department [address] [place] [id number] Consultation 12/08/17 0747 MR#: [id number] Acct: [id number] Name: DI ZAPATA Rep #: [id number] : 1945 72 From: Huang Alvarado MD PCP: Aaron Tidwell MD Status: ADM IN Y Location: ICU ICU03-1 Problem List (1) GI bleeding Status: Resolved Qualifiers: GI bleed type/associated pathology: unspecified gastrointestinal hemorrhage type Qualified Code(s): K92.2 - Gastrointestinal hemorrhage, unspecified Reason for Consult Date of Consultation: 12/08/17 History of Present Illness: The patient is a 72 year old F with multiple comorbidities including chronic heart failure with preserved EF, bilateral lower extremity pain and cellulitis, chronic A. fib on Xarelto came to ER with generalized weakness for 3-4 weeks and rectal bleed, bright red for last 1 week. Patient has been feeling progressively weak and had fall first 1 last week Monday for which she had a peña in the head in ER and then last 1 3 days ago on Monday for which she felt on the arm of the chair and has bruise on the right side of lower back. Patient did not had syncope. As per her daughter, she has been feeling weak and is not able to walk and using wheelchair which she normally does not use. Patient denies nausea vomiting or abdominal pain. She did not had recent EGD last 4-5 years but denies gastric ulcer/esophageal varices. Patient had colonoscopy by Dr. Alvarado. Patient has other significant comorbidities including peripheral arterial disease, venous stasis pulmonary hypertension and had a maze procedure. In ED, she was found to have hemoglobin 8.6 g percent, platelet count 2 75,000. INR was 8.0 and PTT 91.5. Patient's vital was noted, blood pressure 100/52, heart rate 94 pulse ox normal 96% on room air. Patient is further admitted in ICU after K Centra given in ER Patient has had no further rectal bleeding since being in the intensive care unit. Her hemoglobin has remained relatively stable. Past Medical History Past Medical History (Chronic Problems): Chronic Problems (Last Updated 10/11/17 @ 09:06 by Gosia Martinez) Calcinosis (Chronic) Edema, lower extremity (Chronic) Pulmonary hypertension, secondary (Chronic) History of cardiac radiofrequency ablation (RFA) (Chronic) 1st part of MAZE procedure Lt Atrial Ablation 01/12/17 @ [facility] Localized edema (Chronic) Heart failure with 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 (Chronic) MCFP current use of anticoagulant (Chronic) Chronic atrial fibrillation (Chronic) [facility] 10/10, 10/2015; MAZE procedure @ [facility] 01/12/2017; Status post placement of implantable loop recorder (Chronic) History of maze procedure (Chronic) Other secondary pulmonary hypertension (Chronic) Chronic diastolic (congestive) heart failure (Chronic) Symptomatic anemia (Chronic) Hypertension (Chronic) Type 2 diabetes mellitus (Chronic) Lung nodule (Chronic) Chronic kidney disease, stage 3 (Chronic) 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 calciphylaxis vs. erythema nodosum vs. dermatomyositis vs. panniculitis Mass of soft tissue of right lower extremity (Chronic) right inner upper thigh - ? calciphylaxis vs. erythema nodosum vs. dermatomyositis vs. panniculitis Allergies amlodipine besylate [From Norvasc] Allergy (Verified 12/07/17 06:11) Unknown Shortness of breath ceftriaxone Allergy (Verified 12/07/17 06:11) Rash doxazosin mesylate [From Cardura] Allergy (Verified 12/07/17 06:11) Unknown Pt doesn't remember doxycycline Allergy (Verified 12/07/17 06:11) Unknown Pt doesn't remember enalapril maleate [From Vasotec] Allergy (Verified 12/07/17 06:11) Rash enalaprilat dihydrate [From Vasotec] Allergy (Verified 12/07/17 06:11) Rash hydroxyzine HCl [From Vistaril] Allergy (Verified 12/07/17 06:11) Rash hydroxyzine pamoate [From Vistaril] Allergy (Verified 12/07/17 06:11) Rash meperidine HCl [From Demerol] Allergy (Verified 12/07/17 06:11) Rash Sulfa (Sulfonamide Antibiotics) Allergy (Verified 12/07/17 06:11) Hives sulfamethoxazole [From Bactrim] Allergy (Verified 12/04/17 05:42) Hives trimethoprim [From Bactrim] Allergy (Verified 12/04/17 05:42) Hives Home Medications: Ambulatory Orders Medication Instructions Recorded Metoprolol Tartrate [Lopressor 12.5 mg PO BID #90 tab 11/06/15 (beta alok)] Surgical History: cataract, cholecystectomy, hysterectomy, - Smoking Status: Never smoker - *Family History Maternal History Items: No pertinent history Paternal History Items: No pertinent history Review of Systems Gastrointestinal: Reports: - - At home the patient did have some bright red rectal bleeding which she had for approximately 2 weeks prior to coming in. Denies: Abdominal Pain Patient Problems: Active and Suspected Problems (Last Updated 10/11/17 @ 09:06 by Gosia Martinez) Lower GI bleed (Acute) Chronic A. fib on Xarelto (Acute) Recurrent falls (Acute) Generalized weakness (Acute) - Physical Exam General: Alert, Oriented x3 Abdomen: Soft, Non Tender, Non-Distended Vital Signs Temp Pulse Resp BP Pulse Ox 98.1 F 90 15 109/55 L 97 12/08/17 01:00 12/08/17 06:00 12/08/17 06:00 12/08/17 06:00 12/08/17 06:00 Oxygen Delivery Method Room Air Weight: 192 lb 10.944 oz Body Mass Index (BMI) 33.3 Intake and Output for Last 24 Hours Intake Total 2008 719 / 719 Output Total 400 / 400 650 / 650 Balance 1609 / 1609 69 / 69 Laboratory Tests Past 24 Hrs Hgb 8.3 L Hct 26.8 L Sodium 141 Potassium 4.0 POC Glucose POC Glucose 82 112 H 62 L POC Glucose 75 96 Assessment/Plan Active and Suspected Problems (Last Updated 10/11/17 @ 09:06 by Gosia Martinez) Lower GI bleed (Acute) Chronic A. fib on Xarelto (Acute) Recurrent falls (Acute) Generalized weakness (Acute) At this point I believe correcting her anticoagulation and obtaining a colonoscopy on an outpatient basis while she can get her other medical problems dealt with during this admission is the most appropriate course of action for her. I will see her back in the office when she is discharged. 12/08/17 0751 <Electronically signed by Huang Alvarado MD> Date Huang Alvarado MD Cosigner Signature (if applicable): Date CC: Huang Alvarado MD; Eliu Mitchell D.O.; Aaron Tidwell MD Signed CONSULTATION Observed: 12/08/2017 Status: F Source: [place] 6:38 AM [facility] REPOSITORY [facility] Medical Records Department [address] [place] [address] Consultation 12/07/17 1114 MR#: [id number] Acct: [id number] Name: DI ZAPATA Rep #: [id number] : 1945 72 From: Eliu Mitchell DO PCP: Aaron Tidwell MD Status: ADM IN Y Location: ICU ICU03-1 Reason for Consult Date of Consultation: 12/07/17 Reason for Consultation: Blood loss anemia/coagulopathy History of Present Illness: The patient is a 72-year-old female, with a history as outlined below, who presented to the emergency department on December 07 with generalized weakness and a number of recent falls. The patient has been seen in the emergency department on multiple occasions since the end of October. She was last seen on December 01 for complaints of confusion. Subsequent workup revealed evidence of cystitis, for which the patient was placed on ciprofloxacin. Urine culture sent at that time revealed Klebsiella pneumonia. The patient currently follows with Dr. Childers on an outpatient basis due to a history of atrial fibrillation with multiple previous failed cardioversions and ablation attempts. The patient was recently anticoagulated on Coumadin, but states that she was transitioned to Xarelto approximately 2 weeks ago. She states that the time she was transitioned to Xarelto, she recalls her INR being around 3. The patient also has a history of restrictive lung mechanics based off of PFTs completed previously. She also has underlying obstructive sleep apnea, for which it was recommended that she be placed on bilevel therapy at a pressure setting of 15/11 cm of water with humidification. The patient states that she has been noncompliant with its use over the last 2 weeks due to machine malfunctioning. However, she never contacted her DME provider to have the issue addressed. On presentation to the emergency department, the patient was noted to be afebrile, tachycardic and hemodynamically stable. Laboratory evaluation revealed a mildly elevated white blood cell count to 13,000. The patient had evidence of microcytic anemia with a hemoglobin of 8.6 and hematocrit of 28. The patient has a baseline hemoglobin level between 9 and 10 g/dL. The patient was noted to be coagulopathic with an INR of 8.0. Chemistry profile revealed a mildly elevated potassium to 5.3 along with evidence of chronic kidney disease with a creatinine of 1.53. Serum lactate was within normal limits. Troponin was negative. Stool for occult blood was positive. The patient was given Protonix and administered K Centra. She was subsequently transferred to the medical intensive care unit for ongoing management. 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 (Chronic) Chronic atrial fibrillation (Chronic) [facility] 10/10, 10/2015; MAZE procedure @ Sy 01/12/2017; Status post placement of implantable loop recorder (Chronic) History of maze procedure (Chronic) Other secondary pulmonary hypertension (Chronic) Chronic diastolic (congestive) heart failure (Chronic) Symptomatic anemia (Chronic) Hypertension (Chronic) Type 2 diabetes mellitus (Chronic) Lung nodule (Chronic) Chronic kidney disease, stage 3 (Chronic) 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 calciphylaxis vs. erythema nodosum vs. dermatomyositis vs. panniculitis Mass of soft tissue of right lower extremity (Chronic) right inner upper thigh - ? calciphylaxis vs. erythema nodosum vs. dermatomyositis vs. panniculitis Allergies amlodipine besylate [From Norvasc] Allergy (Verified 12/07/17 06:11) Unknown Shortness of breath ceftriaxone Allergy (Verified 12/07/17 06:11) Rash doxazosin mesylate [From Cardura] Allergy (Verified 12/07/17 06:11) Unknown Pt doesn't remember doxycycline Allergy (Verified 12/07/17 06:11) Unknown Pt doesn't remember enalapril maleate [From Vasotec] Allergy (Verified 12/07/17 06:11) Rash enalaprilat dihydrate [From Vasotec] Allergy (Verified 12/07/17 06:11) Rash hydroxyzine HCl [From Vistaril] Allergy (Verified 12/07/17 06:11) Rash hydroxyzine pamoate [From Vistaril] Allergy (Verified 12/07/17 06:11) Rash meperidine HCl [From Demerol] Allergy (Verified 12/07/17 06:11) Rash Sulfa (Sulfonamide Antibiotics) Allergy (Verified 12/07/17 06:11) Hives sulfamethoxazole [From Bactrim] Allergy (Verified 12/04/17 05:42) Hives trimethoprim [From Bactrim] Allergy (Verified 12/04/17 05:42) Hives Home Medications: Ambulatory Orders Medication Instructions Recorded Metoprolol Tartrate [Lopressor 12.5 mg PO BID #90 tab 11/06/15 (beta alok)] Surgical History: cataract, cholecystectomy, hysterectomy, - Smoking Status: Never smoker - *Family History Maternal History Items: No pertinent history Paternal History Items: No pertinent history Review of Systems Constitutional: Reports: Weakness, Fatigue Eyes: Denies: Blurred vision, Double vision HEENT: Denies: Head Aches, Sinus Congestion, Sinus Drainage Cardiovascular: Denies: Chest Pain, Palpitations Respiratory: Denies: Cough, Shortness of breath at rest, Sputum production Gastrointestinal: Denies: Abdominal Pain, Nausea, Vomiting Genitourinary: Denies: Dysuria Musculoskeletal: Reports: Leg Pain Skin: Reports: Wounds Neurological: Reports: Balance problems, Confusion Psychiatric: Denies: Anxiety, Depression, Homicidal Ideations, Suicidal Ideations Hematologic/ Lymphatic: Reports: Anemia Patient Problems: Active and Suspected Problems (Last Updated 10/11/17 @ 09:06 by Gosia Martinez) Lower GI bleed (Acute) Chronic A. fib on Xarelto (Acute) Recurrent falls (Acute) Generalized weakness (Acute) Objective: The patient's most recent lab work, culture data and imaging studies have all been personally reviewed. The patient's last surface echocardiogram from May 2015 revealed mild concentric LVH with an ejection fraction of 50%. Pulmonary artery systolic pressure was estimated to be 44 mmHg. Urine culture dated December 01 was positive for the presence of Klebsiella pneumoniae. - Physical Exam General: Alert, Cooperative, No apparent distress HEENT: Atraumatic, PERRLA, Normocephalic Oral: No Gingival or Mucosal Lesions/ Ulcerations, Dry Mucosa Neck: Supple, No Nodes, Trachea Midline Lungs: No rhonchi, No wheeze, No rales, Diminished Cardiovascular: Normal S1, Normal S2, No murmurs, Tachycardic Abdomen: Bowel Sounds Present, Soft, Non Tender, Obese Extremities: No clubbing, No cyanosis, Edema Skin: - - Chronic lower extremity wounds, present on admission. Musculoskeletal: No Tenderness to Palpation of Joints or Extremities Lymphatic: No Cervical, Supraclavicular, or Inguinal Adenopathy Neurological: Neuro grossly intact Psych/Mental Status: Normal Affect, Appropriate Vital Signs Temp Pulse Resp BP Pulse Ox 97.2 F L 118 H 22 H 120/84 H 98 12/07/17 10:20 12/07/17 10:20 12/07/17 10:20 12/07/17 10:20 12/07/17 09:13 Oxygen Delivery Method Room Air Weight: 187 lb 13.341 oz Body Mass Index (BMI) 33.3 Laboratory Tests Past 24 Hrs MRSA (PCR) Pending Labs (Last 48 Hours) WBC 12.5 H RBC 3.97 L Hgb 8.6 L Hct 28.1 L Microbiology 12/07/17 06:50 Stool Stool Occult Blood (ELENITA) - Final Occult Blood Positive Clinical Impression(s) from Imaging Studies Chest X-Ray 12/07/17 06:27 IMPRESSION: No acute cardiopulmonary abnormalities or changes. There is stable mild enlargement of the cardiac silhouette without pulmonary edema or pleural effusion. There is minimal bibasilar atelectasis due to low volume inspiration. Electronically Signed: Christen Gold MD at 7:00 EDT Tel Direct: [phone], Service support , Assessment/Plan Active and Suspected Problems (Last Updated 10/11/17 @ 09:06 by Gosia Martinez) Lower GI bleed (Acute) Chronic A. fib on Xarelto (Acute) Recurrent falls (Acute) Generalized weakness (Acute) RECOMMENDATIONS: 1. Continue to monitor blood counts for now. Check INR daily. 2. Transition from ciprofloxacin to ceftriaxone for continued treatment of the patient's Klebsiella cystitis 3. Discontinue morphine given the patient's renal insufficiency and hold Neurontin 4. IV fentanyl as needed can be used for pain 5. Continue PPI twice daily 6. Patient to remain n.p.o. for now IMPRESSIONS: 1. Blood loss anemia The patient has a baseline, chronic microcytic anemia. Her current hemoglobin is not far from what her baseline is. She is not experiencing a life-threatening gastrointestinal bleed. Her blood loss is likely secondary to her coagulopathy, precipitated by a drug interaction between Xarelto and ciprofloxacin, for which the patient was previously started on. The patient's Xarelto is now on hold. Given that she does have an underlying urinary tract infection, her antibiotics will be transitioned to ceftriaxone. Monitor blood counts. The patient remains hemodynamically stable. Plan to transfuse if hemoglobin drops below 7 g/dL. Dr. Alvarado is following for potential endoscopy. 2. Coagulopathy/atrial fibrillation Likely secondary to interaction between ciprofloxacin and Xarelto, as the combination can lead to increased Xarelto levels, increasing the risk for bleeding. The patient already received K Centra downstairs in the ED. We will continue to monitor blood counts accordingly. 3. Klebsiella pneumoniae cystitis The patient will be transitioned to ceftriaxone based upon urine culture sensitivities. 4. Obstructive sleep apnea Recommend continuing BiPAP 09/08 with naps and nightly. [facility] will need to be contacted prior to the patient's discharge from the hospital to address her home machine malfunction. 5. Chronic wounds/ulcers of bilateral lower extremities The patient is currently being followed in the wound care clinic and was last seen by them on December 06. The etiology for her ulcers are felt to be secondary to venous insufficiency. Continue local wound care. Fentanyl can be utilized for pain as needed. 6. Obesity/chronic kidney disease/peripheral neuropathy/anxiety Complicates care, management, recovery and prognosis. Hold patient's Neurontin and other outpatient p.o. medications for now. This note was generated with [employer] dictation software. It may contain incorrect words, spelling, and punctuation that were not noted in checking the note before signing. Code Visit Inpatient E AND M: [id number] Init Hosp L3 12/08/17 0638 <Electronically signed by Eliu Mitchell DO> Date Eliu Mitchell DO Cosigner Signature (if applicable): Date CC: Huang Alvarado MD; Eliu Mitchell D.O.; Aaron Tidwell MD Signed BEDSIDE GLUCOSE Collected: 12/08/2017 Status: F Source: [place] 6:32 AM [facility] REPOSITORY TYPE CODE TESTS RESULT OUT OF RANGE REFERENCE UNITS LAB L501.080 70-110 mg/dL Normal BEDSIDE GLU 82 Result Comment: MANAGEMENT OF PATIENT CARE PER NURSING PROTOCOL Performed By: #### L501.080 #### [facility] Point of Care [address] [place], [place] [address] BASIC METABOLIC Collected: 12/08/2017 Status: F Source: [place] PROFILE (BMP) 5:35 AM [facility] REPOSITORY TYPE CODE TESTS RESULT OUT OF RANGE REFERENCE UNITS LAB L501.0100 74-106 mg/dL Normal GLU 85 Result Comment: Please note revised GLUCOSE reference range effective 2017. LAB L501.1000 7-18 mg/dL High BUN 24 LAB L501.1100 0.55-1.02 mg/dL High CREAT,SERUM 1.21 Result Comment: The validity of the calculated GFR AND GFRAA in patients over 70 years has not been determined. Clinical correlation is essential. LAB L501.1110 >60 mL/min Low EST GFR 47 Result Comment: Non- GFR Calc LAB L501.1115 >60 mL/min Low EST GFR - AA 56 Result Comment: GFR Calc LAB L501.1255 ml/min Normal Estimated CRCL 35.28 LAB L501.1300 10-20 RATIO Normal BUN/CRE 19.8 LAB L501.2200 8.5-10 mg/dL Low .1 CA 7.5 LAB L501.5300 136-14 mmol/L Normal 5 NA 141 LAB L501.5600 3.5-5. mmol/L Normal 1 K 4.0 Result Comment: Slight Hemolysis, Result may be falsely increased. LAB L501.5900 98-107 mmol/L High CL 112 LAB L501.6100 21.0-32.0 mmol/L Normal CO2 21.0 LAB L501.6200 5-15 Normal 8 GAP Performed By: #### L500.2500 #### [facility] [address] [place], [place], [address] BEDSIDE GLUCOSE Collected: 12/08/2017 Status: F Source: [place] 12:58 AM [facility] REPOSITORY TYPE CODE TESTS RESULT OUT OF REFERENCE UNITS RANGE LAB L501.080 70-110 mg/dL High BEDSIDE GLU 112 Result Comment: MANAGEMENT OF PATIENT CARE PER NURSING PROTOCOL Performed By: #### L501.080 #### [facility] Point of Care [address] [place], [place] [id number] BEDSIDE GLUCOSE Collected: 12/07/2017 Status: F Source: [place] 11:47 PM [facility] REPOSITORY TYPE CODE TESTS RESULT OUT OF REFERENCE UNITS RANGE LAB L501.080 70-110 mg/dL Low BEDSIDE GLU 62 Result Comment: MANAGEMENT OF PATIENT CARE PER NURSING PROTOCOL Performed By: #### L501.080 #### [facility] Point of Care [address] [place] [address] HH, HEMOGLOBIN AND Collected: 12/07/2017 Status: F Source: [place] HEMATOCRIT 6:20 PM [facility] REPOSITORY TYPE CODE TESTS RESULT OUT OF RANGE REFERENCE UNITS LAB L100.1300 12.0-15.0 g/dl Low HGB 8.3 LAB L100.1400 37-47 % Low HCT 26.8 Performed By: #### L100.0600 #### [facility] [address] [place], [place], [id number] BEDSIDE GLUCOSE Collected: 12/07/2017 Status: F Source: [place] 5:32 PM [facility] REPOSITORY TYPE CODE TESTS RESULT OUT OF RANGE REFERENCE UNITS LAB L501.080 70-110 mg/dL Normal BEDSIDE GLU 75 Result Comment: MANAGEMENT OF PATIENT CARE PER NURSING PROTOCOL Performed By: #### L501.080 #### [facility] Point of Care [address] [place] [address] URINALYSIS, COMPLETE Collected: 12/07/2017 Status: F Source: [place] 3:20 PM [facility] REPOSITORY Order Comment: How was Urine Obtained? MOLDING LINE ASSISTANT TO SPECIFY TYPE CODE TESTS RESULT OUT OF RANGE REFERENCE UNITS LAB L400.3000 Yellow COLOR Normal Yellow LAB L400.3050 Clear Normal CLARITY Clear LAB L400.3200 Normal mg/dl Normal GLUCOSE, UR Normal LAB L400.3300 Negative mg/dL Normal BILIRUBIN URINE Negative LAB L400.3400 Negative mg/dl Normal KETONE UR Negative LAB L400.3465 1.002-1.030 Normal SP.GR. DIPSTX 1.020 LAB L400.3550 5.0 - 8.0 pH UR Normal 5.0 LAB L400.3600 Negative mg/dl PROT Normal DIPSTX Negative LAB L400.3700 Normal mg/dl Normal UROBILI Normal LAB L400.3750 Negative Normal NITRITE UR Negative LAB L400.3780 Negative /ul High 25 OCCULT BLOOD-UR LAB L400.3800 Negative /ul LEUK Normal ESTERASE Negative LAB L400.4050 0-5 /hpf WBC 0 Normal SEEN LAB L400.4100 0-5 /hpf Normal RBC-UA 0-5 SEEN LAB L400.4150 5-10 /hpf SQUAM 0 Normal EPI SEEN LAB L400.4300 None Seen /hpf 1+ Normal BACTERIA LAB L400.4350 <or=2+ /hpf 0 Normal MUCUS, URINE SEEN Performed By: #### L400.0001 #### [facility] [address] [place], [address] HH, HEMOGLOBIN AND Collected: 12/07/2017 Status: F Source: [place] HEMATOCRIT 1:10 PM [facility] REPOSITORY TYPE CODE TESTS RESULT OUT OF RANGE REFERENCE UNITS LAB L100.1300 12.0-15.0 g/dl Low HGB 8.5 LAB L100.1400 37-47 % Low HCT 27.0 Performed By: #### L100.0600 #### [facility] [address] [place], [address] BEDSIDE GLUCOSE Collected: 12/07/2017 Status: F Source: [place] 12:54 PM [facility] REPOSITORY TYPE CODE TESTS RESULT OUT OF RANGE REFERENCE UNITS LAB L501.080 70-110 mg/dL Normal BEDSIDE GLU 96 Result Comment: MANAGEMENT OF PATIENT CARE PER NURSING PROTOCOL Performed By: #### L501.080 #### [facility] Point of Care [address] [place] [address] M R STAPH AUREUS Collected: 12/07/2017 Status: F Source: [place] DNA BY PCR 10:52 AM [facility] REPOSITORY TYPE CODE TESTS RESULT OUT OF RANGE REFERENCE UNITS LAB L8200.1100 Negative Normal MRSA Negative RESULT Performed By: #### L8200.1000 #### [facility] [address] [place], [address] EMERGENCY DEPARTMENT Observed: 12/07/2017 Status: F Source: [place] SUMMARY 8:29 AM [facility] REPOSITORY [facility] Medical Records Department [address] [place] [address] Emergency Department Summary 12/07/17 0651 MR#: [id number] Acct: [id number] Name: DI ZAPATA Rep #: [id number] : 1945 72 From: Maddie Tinoco MD PCP: Aaron Tidwell MD Status: REG ER ADDENDUM by Esa Roca MD on 12/07/17 at 0829 He was examined by me. She appears pale. She is tachycardic. She has had a 20 mm drop in her systolic blood pressure. Nursing staff nor lab was able to draw blood. A right femoral vein stick was by me. Blood was sent to the lab. H AND H is 8.6 and 20.1. On December 01 her hemoglobin was 10.2. Electrode panel is remarkable for a potassium of 5.3, CO2 of 17 with an anion gap of 10. BUN is elevated at 33 with a creatinine 1.53. INR and PTT are 8.0 91.5. Troponin is less than 0.02. Lactate is normal, 1.4. The case was discussed with Dr. Eliu Mitchell the crts. Dr. Alvarado was contacted since he has seen patient in the past. He will gladly follow and scope patient when appropriate and indicated. Dr. Childers her caponizer was contacted since she will require K Centra to reverse her XA inhibitor induced coagulopathy. The hospitalist was paged for admission to ICU. Impression: 1. GI bleed 2. A. fib with RVR 3. 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 Acute anemia secondary to #1 5. Renal insufficiency, chronic 6. History of hypertension 7. Type 2 diabetes 8. History of congestive heart failure Date Esa Roca MD cc: Aaron Tidwell MD * Signed - ER Visit Summary Date of Service: 12/07/17 Chief Complaint: Generalized weakness History of Present Illness: The patient is a 72 F presenting with generalized weakness and frequent falls. Patient states she has fallen 2 times in the past week. Today she felt weak and felt like she was going to fall. Her caught her and lowered her to the ground. She has required either cane or assistance walking over the past 2 days. No injury today. She also notes that she has had rectal bleeding for the past week. She denies syncope. Denies chest pain or shortness of breath. Denies abdominal pain. She is on Xarelto. Physical Examination: Vitals are stable. Patient is afebrile. Alert no acute distress. HEENT exam is unremarkable. Neck is supple. Lungs are clear and equal bilaterally. Heart is irregularly irregular Abdomen is soft nontender nondistended. No guarding or rebound Rectal: Maroon colored stool Extremities are unremarkable. Skin is warm and dry. No focal neurologic deficit. Remainder of exam is unremarkable. Emergency Department Course and Treatment: IV is placed. EKG shows A. fib rate of 117. Labs were drawn. Patient will be checked out to the oncoming daytime physician. Disposition: Pending Impression: Generalized weakness, GI bleed on Xarelto This note was generated with [employer] dictation software. It may contain incorrect words, spelling, and punctuation that were not noted in review of the chart prior to signing ED Disposition - Plan for ED Patient: Chief Complaint: Weakness Referrals: Aaron Tidwell MD [Primary Care Provider] - What to do if you have Problems For any increased pain, shortness of breath, bleeding, nausea or vomiting, chest pain, or any unexpected problems, contact your Primary Care Provider. Call [facility] ([phone]) or report to the closest Emergency Room. Call 911 if necessary. 12/07/17 0655 <Electronically signed by Maddie Tinoco MD> Date Maddie Tinoco MD Cosigner Signature (If Indicated): Date CC: Aaron Tidwell MD PROTHROMBIN TIME W/INR Collected: 12/07/2017 Status: F Source: [place] 7:35 AM [facility] REPOSITORY Order Comment: CRITICAL VALUE VERIFIED. CALLED TO [facility] 12/07/17 0810 Kellie Echavarria. RESULTS READ BACK BY CHARLY . TYPE CODE TESTS RESULT OUT OF REFERENCE UNITS RANGE LAB L300.4150 11.7-14.9 SECONDS High PROTIME 68.1 LAB L300.4200 High alert INR 8.0 Performed By: #### L300.3900, L300.4310 #### [facility] [address] [place], [place], [address] PARTIAL THROMBOPLAST Collected: 12/07/2017 Status: F Source: [place] TIME 7:35 AM [facility] REPOSITORY Order Comment: CRITICAL VALUE VERIFIED. CALLED TO [facility] 12/07/17 0810 Kellie Echavarria. RESULTS READ BACK BY CHARLY . TYPE CODE TESTS RESULT OUT OF REFERENCE UNITS RANGE LAB L300.4310 24.1-36.2 Seconds High alert PTT 91.5 Performed By: #### L300.3900, L300.4310 #### [facility] [address] [place], [address] LACTIC ACID Collected: 12/07/2017 Status: F Source: [place] 7:35 AM [facility] REPOSITORY Order Comment: Yes/No query for Sepsis Lactate Rule Y TYPE CODE TESTS RESULT OUT OF RANGE REFERENCE UNITS LAB L503.6005 0.4-2.0 mmol/L Normal LACTIC ACID 1.4 Performed By: #### L503.6005 #### [facility] [address] [place], [place], [address] CBC W/DIFF, AUTOMATED Collected: 12/07/2017 Status: F Source: [place] 7:35 AM [facility] REPOSITORY Order Comment: REDRAW. PREVIOUS SPECIMEN REJECTED DUE TO QNS. 12/07/17 0730 Sabi Olmedo. TYPE CODE TESTS RESULT OUT OF RANGE REFERENCE UNITS LAB L100.1000 4.4-11.0 K/mm3 High WBC 12.5 LAB L100.1200 4.2-5.4 M/mm3 Low RBC 3.97 LAB L100.1300 12.0-15.0 g/dl Low HGB 8.6 LAB L100.1400 37-47 % Low HCT 28.1 LAB L100.1500 81-99 fL Low MCV 70.8 LAB L100.1600 27.0-32.0 pg Low MCH 21.7 LAB L100.1700 32-36 g/gl Low MCHC 30.6 LAB L100.1810 11.6-14.6 % High RDW CV 23.0 LAB L100.1820 35.1-43.9 fl High RDW SD 57.9 LAB L100.1900 150-450 K/mm3 Normal PLT 275 LAB L100.2000 6.2-12.0 fl Normal MPV 9.8 LAB L100.2100 47-70 % High NEUT% 83.6 LAB L100.2200 19-41 % Low LY% 8.3 LAB L100.2300 0-10 % Normal MONO% 6.9 LAB L100.2400 0-5 % Normal EO% 0.6 LAB L100.2500 0-1 % Normal BASO% 0.2 LAB L100.2550 0.0-0.9 % Normal IM GRAN % 0.400 Result Comment: IG% - Immature Granulocytes (promyelocytes, myelocytes and metamyelocytes) > 1% indicates that a LEFT SHIFT is Present. LAB L100.2620 2.0-7.7 X10 3/uL High Absolute Neut 10.5 LAB L100.2720 0.83-4.51 X10 3/ul Normal Absolute Lymph 1.04 LAB L100.4500 Normal SMEAR COMMENT COMMENT Result Comment: SLIDE SCANNED - 1+ ANISO, 1+ TARGET CELLS, 1+ HYPOCHROMIA. Performed By: #### L100.0100 #### [facility] [address] [place], [address] TYPE AND SCREEN Collected: 12/07/2017 Status: F Source: [place] 7:35 AM [facility] REPOSITORY Order Comment: Reason for Type AND Screen/Red Cells: HEMORRHAGE, GI BLEED TYPE CODE TESTS RESULT OUT OF RANGE REFERENCE UNITS LAB B10.0800 A Normal BLOOD TYPE GEL POSITIVE LAB B100.4000 Normal Antibody NEGATIVE Screen Performed By: #### B101.7450 #### [facility] [address] [place], [address] Collected: 12/07/2017 Status: F Source: [place] 7:35 AM [facility] REPOSITORY TYPE CODE TESTS RESULT OUT OF REFERENCE UNITS RANGE LAB U100.0000 [id number] TRANSFUSED PRODUCT: T AND S with Crossmatch, Red Cells COUNT: 1 Performed By: #### U100.0000 #### Non-[facility] - refer to report for specific site BASIC METABOLIC Collected: 12/07/2017 Status: F Source: [place] PROFILE (BMP) 7:30 AM [facility] REPOSITORY Order Comment: 'TROP' Serial specimen #1, #2, #3, or #4: 1 TYPE CODE TESTS RESULT OUT OF RANGE REFERENCE UNITS LAB L501.0100 74-106 mg/dL High GLU 108 Result Comment: Fasting Glucose result from 100 to 125 mg/dL suggests IMPAIRED HOMEOSTASIS per A.D.A. criteria. Please note revised GLUCOSE reference range effective 2017. LAB L501.1000 7-18 mg/dL High BUN 33 LAB L501.1100 0.55-1.02 mg/dL High CREAT,SERUM 1.53 Result Comment: The validity of the calculated GFR AND GFRAA in patients over 70 years has not been determined. Clinical correlation is essential. LAB L501.1110 >60 mL/min Low EST GFR 36 Result Comment: Non- GFR Calc LAB L501.1115 >60 mL/min Low EST GFR - AA 43 Result Comment: GFR Calc LAB L501.1255 ml/min Normal Estimated CRCL 29.12 LAB L501.1300 10-20 RATIO High BUN/CRE 21.6 LAB L501.2200 8.5-10 mg/dL Normal .1 CA 8.8 LAB L501.5300 136-14 mmol/L Low 5 NA 135 LAB L501.5600 3.5-5. mmol/L High 1 K 5.3 LAB L501.5900 98-107 mmol/L High CL 108 LAB L501.6100 21.0-3 mmol/L Low 2.0 CO2 17.0 LAB L501.6200 5-15 Normal GAP 10 Performed By: #### L500.2500, L501.4010 #### [facility] [address] [place], [address] TROPONIN-I Collected: 12/07/2017 Status: F Source: [place] 7:30 AM [facility] REPOSITORY Order Comment: 'TROP' Serial specimen #1, #2, #3, or #4: 1 TYPE CODE TESTS RESULT OUT OF RANGE REFERENCE UNITS LAB L501.4010 <0.06 ng/mL Normal < 0.02 TROPONIN-I Result Comment: TROPONIN-I EXPECTED VALUES <0.05 NEGATIVE 0.06 - 0.59 AT RISK OF AR > OR = 0.60 SUGGEST AR Performed By: #### L500.2500, L501.4010 #### [facility] [address] [place], [address] Observed: 12/07/2017 Status: F Source: [place] STOOL OCCULT BLOOD 6:50 AM [facility] IFOB REPOSITORY [facility] iF Normal Reference Range = Negative Occult Blood Positive ORGANISM 1: OCCULT BLOOD POSITIVE Performed By: #### M100.7900 #### [facility] [address] [place], [address] CHEST 1 VIEW Observed: 12/07/2017 Status: F Source: [place] (PORTABLE) 6:29 AM [facility] Imaging Services [address] [place] [address] Chest 1 View (Portable) MR#: [id number] Acct: [id number] Name: DI ZAPATA Rep #: [id number] : 1945 F 72 From: Christen Gold MD PCP: Aaron Tidwell MD Status: REG ER Study: Chest 1 View (Portable) Date of Exam: 12/07/17 Exam# [id number] Ordering Dr: Maddie Tinoco MD STUDY: X-RAY CHEST REASON FOR EXAM: Female, 72 years old. Shortness of breath TECHNIQUE: A single frontal view of the chest was obtained. COMPARISON: December 04, 2017 FINDINGS: The lungs are underaerated. There are minimal increased markings in both lung bases. There is no demonstrated pleural abnormality. There is mild enlargement of the cardiac silhouette. The mediastinum and hilar regions are unremarkable. There is prominence of the main pulmonary artery as seen on a prior CT of the chest, consistent with pulmonary artery hypertension. There is atherosclerotic calcification of the thoracic aorta. There are diffuse degenerative changes of the visualized spine. There are degenerative changes in both shoulders. Cholecystectomy clips are present. RAD/Chest 1 View (Portable) IMPRESSION: No acute cardiopulmonary abnormalities or changes. There is stable mild enlargement of the cardiac silhouette without pulmonary edema or pleural effusion. There is minimal bibasilar atelectasis due to low volume inspiration. Electronically Signed: Christen Gold MD at 7:00 EDT Tel Direct: [phone], Service support , CC: Maddie Tinoco MD; Aaron Tidwell MD Oxyacetylene Cutter: Signed 12 LEAD ELECTROCARDIOGRAM Observed: 12/04/2017 Status: F Source: [place] 2:53 PM [facility] Cardiovascular Services [address] [place] [address] 12 Lead EKG 12/01/17 0925 MR#: [id number] Acct: [id number] Name: DI ZAPATA Rep #: [id number] : 1945 72 From: Epifanio Childers MD Attending Dr: Status: DEP ER Ordering Dr: Meche Ramos MD Date: 12/01/17 Location: ED Sex: F C Admitted: Test Reason : Blood Pressure : / mmHG Vent. Rate : 097 BPM Atrial Rate : 110 BPM P-R Int : 000 ms QRS Dur : 088 ms QT Int : 360 ms P-R-T Axes : 000 098 243 degrees QTc Int : 457 ms Atrial fibrillation Lateral infarct , age undetermined Inferior infarct , age undetermined Abnormal ECG Confirmed by EPIFANIO CHILDERS MD ([id number]), acquisitions editor CARLENE NELSON ([id number]) on 12/04/2017 2:53:15 PM Referred By: VAISHNAVI Confirmed By:EPIFANIO CHILDERS MD 12/04/17 1453 Date Epifanio Childers MD CC: Meche Ramos MD; Aaron Tidwell MD Signed EMERGENCY DEPARTMENT Observed: 12/04/2017 Status: F Source: [place] SUMMARY 7:22 AM [facility] Medical Records Department [address] [place] [address] Emergency Department Summary 12/04/17 0602 MR#: [id number] Acct: [id number] Name: DI ZAPATA Rep #: [id number] : 1945 72 From: Major Meyers MD PCP: Aaron Tidwell MD Status: DEP ER - ER Visit Summary Date of Service: 12/04/17 Chief Complaint: Fall at home History of Present Illness: The patient is a 72 F is on anticoagulation. Family states that she is on Xarelto. She is a history of diet-controlled diabetes, CHF, renal insufficiency and A. fib. She was walking from the kitchen with food went to sit on the couch and lost her balance and hit her back against a chair. She denies hitting her head. She denies any headache. She denies any neck pain. She has had other recent falls is been evaluated in the ER. She has had recent CAT scans due to hitting her head. And a scalp laceration that was repaired with peña. She still has the peña in at this time. Today she is complaining of lower back and right posterior rib cage pain. She had no LOC. She does live at home with her . Physical Examination: Elderly female no acute distress. Vital signs are stable and afebrile. Pulse ox 95% on room air no signs of hypoxia. She does not look septic or toxic. HEENT exam pupils are round and reactive light. No signs of facial trauma. There is no scalp hematoma or tenderness. Neck is nontender. C-spine is nontender. Lungs are clear to auscultation bilaterally. Heart is irregularly irregular consistent with A. fib rate in the 80s. She has a history of A. fib. Anterior chest wall is nontender. Abdomen is soft and nontender. Normal bowel sounds no peritoneal signs. Pelvic girdle is intact. She is moving all 4 extremities. They are neurovascularly intact. She has chronic edema both lower extremities with wraps on. She has chronic right knee pain from arthritis but no deformity she is able to flex extend the right knee. Neither hip is tender to palpation. There is no shortening or rotation. She can flex and extend both hips. Her back exam she has tenderness along the upper lumbar spine and also right posterior rib cage. There is some bruising. Also a mild bruise on her left forearm which is old. Neurologically she is awake and alert. She has no focal deficits. She is able to answer all questions. She is moving all 4 extremities. Test Results: Chest x-ray shows chronic changes no acute processes no obvious rib fractures. LS spine film shows degenerative joint space narrowing but no compression fractures. I went over the films with the patient and her family members. On repeat exam at 06 58 she started to have some bruising to her mid to lower back on the sides where she hit the chair. Consistent with contusions. Otherwise exam is unchanged. She is awake and alert. Again no signs of head injury. Where her prior peña were placed they look good and are healing appropriately. Emergency Department Course and Treatment: Patient has had recent labs. She also has recently had an elevated INR. I discussed this with the family but they states she has been changed from Coumadin to Xarelto recently. She did not hit her head tonight I do not think she needs any CAT scan tonight. She has had 2 recently. We will obtain x-rays of her chest and lumbar spine. She declines anything for pain at this time. Treatment Plan: Patient be discharged to home. Ice to her back to help prevent some of the bruising. She is to expect bruising which is already starting to occur. He were instructed that she could have a nondisplaced rib fractures not seen on x-ray but the x-ray just showed chronic changes. Disposition: dc Impression: Acute fall Right posterior rib cage contusion Back contusion Anticoagulated on Xarelto This note was generated with [employer] dictation software. It may contain incorrect words, spelling, and punctuation that were not noted in review of the chart prior to signing ED Disposition - Plan for ED Patient: Chief Complaint: Fall Referrals: Aaron Tidwell MD [Primary Care Provider] - What to do if you have Problems For any increased pain, shortness of breath, bleeding, nausea or vomiting, chest pain, or any unexpected problems, contact your Primary Care Provider. Call [facility] ([phone]) or report to the closest Emergency Room. Call 911 if necessary. 12/04/17721 <Electronically signed by Major Meyers MD> Date Major Meyers MD Cosigner Signature (If Indicated): Date CC: Aaron Tidwell MD DISCHARGE INSTRUCTION Observed: 12/04/2017 Status: F Source: [place] 7:22 AM [facility] Medical Records Department [address] [place] [address] Discharge Instruction 12/04/17701 MR#: [id number] Acct: [id number] Name: DI ZAPATA Rep #: [id number] : 1945 72 From: Major Meyers MD PCP: Aaron Tidwell MD Status: [facility] ER ED Disposition - Plan for ED Patient: Disposition: Home or Assisted Living Chief Complaint: Fall Instructions: ED Contusion Back Referrals: Aaron Tidwell MD [Primary Care Provider] - As Needed Additional Instructions: Ice to any sore areas on your back to help prevent bruising. Follow-up your primary care physician as needed. Return to the ER if feeling a lot worse. Expect to have bruising on your back and to be sore for the next week. What to do if you have Problems For any increased pain, shortness of breath, bleeding, nausea or vomiting, chest pain, or any unexpected problems, contact your Primary Care Provider. Call [facility] ([phone]) or report to the closest Emergency Room. Call 911 if necessary. 12/04/17 0722 <Electronically signed by Major Meyers MD> Date Major Meyers MD Cosigner Signature (If Indicated): Date CC: Aaron Tidwell MD LUMBAR SPINE 2 OR 3 Observed: 12/04/2017 Status: F Source: [place] VIEWS 6:02 AM [facility] Imaging Services [address] [place] [address] Lumbar Spine 2 or 3 Views MR#: [id number] Acct: [id number] Name: DI ZAPATA Rep #: [id number] : 1945 F 72 From: Curtis Harris MD PCP: Aaron Tidwell MD Status: REG ER Study: Lumbar Spine 2 or 3 Views Date of Exam: 12/04/17 Exam# [id number] Ordering Dr: Major Meyers MD STUDY: X-RAY - LUMBAR SPINE REASON FOR EXAM: Female, 72 years old. Patient lost balance whilst trying to sit on a couch. Bruising to the right flank and left shoulder. Pain in the mid to lower back.. TECHNIQUE: 4 view(s) of the lumbar spine were obtained. COMPARISON: CT L-spine 09/11/2017. FINDINGS: Normal lumbar lordosis. There is no substantial scoliosis. There is grade 1 anterolisthesis at the L3-4 and L4-5 levels, which is chronic, on a degenerative basis. Normal vertebral bodies. There is multilevel spondylosis.. There is multi-level degenerative disc disease with multi-level disc space narrowing. There are degenerative changes of the facet joints at multiple levels in the mid and lower spine. The soft tissue structures are unremarkable. RAD/Lumbar Spine 2 or 3 Views IMPRESSION: Degenerative changes of the spine, as detailed above. No demonstrated fracture. Electronically Signed: Curtis Harris MD at 6:58 EDT , Service support , CC: Major Meyers MD; Aaron Tidwell MD Oxyacetylene Cutter: Signed CHEST PA AND LATERAL Observed: 12/04/2017 Status: F Source: [place] 6:02 AM [facility] Imaging Services [address] [place] [address] Chest PA and Lateral MR#: [id number] Acct: [id number] Name: DI ZAPATA Rep #: [id number] : 1945 F 72 From: Curtis Harris MD PCP: Aaron Tidwell MD Status: REG ER Study: Chest PA and Lateral Date of Exam: 12/04/17 Exam# [id number] Ordering Dr: Major Meyers MD STUDY: X-RAY CHEST REASON FOR EXAM: Female, 72 years old. Patient lost balance while trying to sit on a couch. Bruising and pain. TECHNIQUE: Frontal and lateral views of the chest. COMPARISON: 12/01/2017. FINDINGS: The lungs are clear and expanded. There is no demonstrated pleural abnormality. There is mild cardiac enlargement. Normal mediastinum and kenn. Normal visualized pulmonary arteries. There is atherosclerotic calcification of the aortic arch with tortuosity. There are multilevel degenerative changes of the visualized thoracic spine. There is degenerative osteoarthritis of the bilateral shoulders. There is no demonstrated abnormality of the visualized soft tissue structures of the upper abdomen. RAD/Chest PA and Lateral IMPRESSION: Cardiomegaly. No evidence for acute cardiopulmonary pathology. Electronically Signed: Curtis Harris MD at 7:04 EDT , Service support , CC: Major Meyers MD; Aaron Tidwell MD Oxyacetylene Cutter: Signed EMERGENCY DEPARTMENT Observed: 12/01/2017 Status: F Source: [place] SUMMARY 5:39 PM [facility] Medical Records Department [address] [place] [address] Emergency Department Summary 12/01/17 0919 MR#: [id number] Acct: [id number] Name: DI ZAPATA Rep #: [id number] : 1945 72 From: Meche Ramos MD PCP: Aaron Tidwell MD Status: DEP ER - ER Visit Summary Date of Service: 12/01/17 Chief Complaint: confusion History of Present Illness: The patient is a 72 F who fell 3 days ago with head trauma who presents today for confusion. Patient is on Xarelto and was evaluated 3 days ago for a head trauma from a fall. Head CT was negative. Scalp laceration was stapled. Patient has been feeling well, but her this morning noted that she was saying things that did not make sense. She told him that he had orellana on his suit jacket, although he does not. She called their breakfast eggs fish. At the grocery store she asked why the grocery store sign was in the paper, and he said that did not make sense. He was concerned she has a concussion and brought her in. She has had episodes of confusion in the past, but he states this is worse than anything he is seen prior. Patient denies any headache, vision changes, chest pain, shortness of breath, numbness or tingling in the arms or legs, weakness, trouble speaking, or other complaints. She is on Xarelto for atrial fibrillation, and she has not taken a dose yesterday or today because of the head injury. Physical Examination: Vital signs: afebrile, hemodynamically stable, no hypoxia on room air General: well nourished, well developed, in no distress Skin: warm, dry, no rash, no pallor HEENT: normocephalic, well-healing laceration to the posterior scalp with [address]; PERRL, EOMI, moist mucous membranes, no facial droop but neck is supple and nontender Cardiovascular: irregular rate and rhythm without murmurs, legs are wrapped in compression bandages, intact peripheral perfusion Respiratory: No increased work of breathing, lungs are clear to auscultation bilaterally, no rales, rhonchi or wheezing Abdominal: Abdomen is soft, nontender with normoactive bowel sounds, no guarding or rebound, no masses MSK: Moves all extremities, no deformities, normal strength Neuro: Awake and alert, oriented 4. No facial droop, sensation and motor function intact and symmetric H equals 0. Speech is fluent, patient is able to describe a picture appropriately, name objects, and read sentences without any deficits Test Results: Abnormal Lab Results WBC 14.2 H RBC 4.70 Hgb 10.2 L Hct 33.0 L MCV 70.2 L Emergency Department Course and Treatment: Repeat CT of the head showed no delayed intracranial hemorrhage. Patient had a normal neuro exam and at no point showed any signs of confused speech or aphasia. Workup for alternate cause of her episodic confusion was performed. EKG showed A. fib with no ST changes but diffuse T-wave inversion, including new inversion in 1 and aVL. This was discussed with cardiology prison teacher who did not think this new inversion was cardiac in nature but rather result of patient's recent head trauma. No further workup necessary for this. Chest x-ray showed no acute process. Labs showed a mild leukocytosis of 14.2. She had mild elevation in her creatinine that was above her baseline, but compared to labs from a few days ago creatinine was greatly improved. The BUN to creatinine ratio was consistent with prerenal cause, likely dehydration, and patient was given IV fluids for this. Patient's other labs were at baseline. Patient did have mild urinary tract infection on urinalysis. Because of this with the leukocytosis, she will be treated for UTI with low dose ciprofloxacin for 3 days. No other option was available as patient has multiple allergies. No noted interactions with Cipro recent patient's medication list were appreciated. Patient was discharged home neuro intact with no deficits. She will follow up with her doctor or return if any concerns. Treatment Plan: [] Disposition: [] Impression: 1. Subsequent visit for concussion 2. Urinary tract infection 3. Mild dehydration This note was generated with [employer] dictation software. It may contain incorrect words, spelling, and punctuation that were not noted in review of the chart prior to signing ED Disposition - Plan for ED Patient: Disposition: Home or Assisted Living Chief Complaint: Confusion Instructions: ED Concussion, ED UTI Cystitis Female Prescriptions: Ciprofloxacin [Cipro] 250 mg PO BID #6 tab Referrals: Mira Almonte DO [STAFF PHYSICIAN] - Keep [place] appointment Aaron Tidwell MD [Primary Care Provider] - 3-5 Days if not improving Additional Instructions: Your workup today showed no bleeding in the brain. Your confusion this morning may be due to a concussion from your fall 3 days ago. Please follow-up as you were previously instructed after the fall to have the peña removed. You also have a mild bladder infection on your workup. Please take the antibiotic as prescribed for 3 days. Please drink plenty of fluids, as your labs showed dehydration as well. You were given some IV fluids to help hydrate you today. Please keep your appointment with your kidney doctor next Monday as already scheduled. Any worsening of your condition or any new concerning symptoms, please return immediately to the emergency department for another evaluation. What to do if you have Problems For any increased pain, shortness of breath, bleeding, nausea or vomiting, chest pain, or any unexpected problems, contact your Primary Care Provider. Call [facility] ([phone]) or report to the closest Emergency Room. Call 911 if necessary. 12/01/17 7170 <Electronically signed by Meche Ramos MD> Date Meche Ramos MD Cosigner Signature (If Indicated): Date CC: Aaron Tidwell MD DISCHARGE INSTRUCTION Observed: 12/01/2017 Status: F Source: [place] 4:50 PM [facility] Medical Records Department [address] [place] [address] Discharge Instruction 12/01/17 1236 MR#: [id number] Acct: [id number] Name: DI ZAPATA Rep #: [id number] : 1945 72 From: Meche Ramos MD PCP: Aaron Tidwell MD Status: DEP ER ED Disposition - Plan for ED Patient: Disposition: Home or Assisted Living Chief Complaint: Confusion Instructions: ED UTI Cystitis Female, ED Concussion Prescriptions: Ciprofloxacin [Cipro] 250 mg PO BID #6 tab Referrals: Aaron Tidwell MD [Primary Care Provider] - 3-5 Days if not improving Mira Almonte DO [STAFF PHYSICIAN] - Keep [facility] appointment Additional Instructions: Your workup today showed no bleeding in the brain. Your confusion this morning may be due to a concussion from your fall 3 days ago. Please follow-up as you were previously instructed after the fall to have the peña removed. You also have a mild bladder infection on your workup. Please take the antibiotic as prescribed for 3 days. Please drink plenty of fluids, as your labs showed dehydration as well. You were given some IV fluids to help hydrate you today. Please keep your appointment with your kidney doctor next Monday as already scheduled. Any worsening of your condition or any new concerning symptoms, please return immediately to the emergency department for another evaluation. What to do if you have Problems For any increased pain, shortness of breath, bleeding, nausea or vomiting, chest pain, or any unexpected problems, contact your Primary Care Provider. Call [facility] ([phone]) or report to the closest Emergency Room. Call 911 if necessary. 12/01/17 1650 <Electronically signed by Meche Ramos MD> Date Meche Ramos MD Cosigner Signature (If Indicated): Date CC: Aaron Tidwell MD Observed: 12/01/2017 Status: F Source: [place] CULTURE, URINE 2:10 PM [facility] Urine Culture ORGANISM 1: Klebsiella pneumoniae sp pneum Buhler Count >100,000 Klebsiella pneumoniae sp pneum: REACTION Amoxacillin/Clavulanic Acid $ <=2 S Ampicillin $ 16 R Ampicillin/Sulbactam $ <=2 S Cefazolin $ <=4 S Cefepime $ <=1 S Ceftriaxone $ <=1 S Ciprofloxacin $ <=0.25 S ESBL - Ertapenim $$$ <=0.5 S Gentamicin $ <=1 S Imipenem *NF <=0.25 S Levofloxacin $ <=0.12 S Nitrofurantoin $ 64 I Piperacillin/Tazobactam $$ <=4 S Tobramycin $ <=1 S Trimethoprim/Sulfametho $ <=20 S (NF) indicates non-formulary drug at [facility]. Approval by Infectious Disease Specialist required before non-formulary drugs may be ordered and/or dispensed. Performed By: #### M100.0650 #### [facility] [place], [address] URINALYSIS, COMPLETE Collected: 12/01/2017 Status: F Source: [place] 11:00 AM [facility] Order Comment: How was Urine Obtained? CLEAN CATCH TYPE CODE TESTS RESULT OUT OF RANGE REFERENCE UNITS LAB L400.3000 Yellow COLOR Normal Yellow LAB L400.3050 Clear Normal CLARITY Sl. Cloudy LAB L400.3200 Normal mg/dl Normal GLUCOSE, UR Normal LAB L400.3300 Negative mg/dL High BILIRUBIN URINE 1 Result Comment: COLOR OF URINE MAY AFFECT DIPSTICK RESULTS. LAB L400.3400 Negative mg/dl Normal KETONE UR Negative LAB L400.3465 1.002-1.030 Normal SP.GR. DIPSTX 1.015 LAB L400.3550 5.0 - 8.0 pH Normal UR 5.0 LAB L400.3600 Negative mg/dl High PROT DIPSTX 30 LAB L400.3700 Normal mg/dl Normal UROBILI Normal LAB L400.3750 Negative Normal NITRITE UR Negative LAB L400.3780 Negative /ul High OCCULT 250 BLOOD-UR LAB L400.3800 Negative /ul High LEUK ESTERASE 500 LAB L400.4050 0-5 /hpf Normal WBC 5-10 SEEN LAB L400.4100 0-5 /hpf Normal RBC-UA 5-10 SEEN LAB L400.4150 5-10 /hpf Normal SQUAM EPI 0-5 SEEN LAB L400.4300 None Seen /hpf Normal BACTERIA 2+ LAB L400.4350 <or=2+ /hpf Normal MUCUS, URINE RARE Performed By: #### L400.0001 #### [facility] [address] [place], [address] CBC W/DIFF, AUTOMATED Collected: 12/01/2017 Status: F Source: [place] 9:40 AM [facility] TYPE CODE TESTS RESULT OUT OF RANGE REFERENCE UNITS LAB L100.1000 4.4-11.0 K/mm3 High WBC 14.2 LAB L100.1200 4.2-5.4 M/mm3 Normal RBC 4.70 LAB L100.1300 12.0-15.0 g/dl Low HGB 10.2 LAB L100.1400 37-47 % Low HCT 33.0 LAB L100.1500 81-99 fL Low MCV 70.2 LAB L100.1600 27.0-32.0 pg Low MCH 21.7 LAB L100.1700 32-36 g/gl Low MCHC 30.9 LAB L100.1810 11.6-14.6 % High RDW CV 21.9 LAB L100.1820 35.1-43.9 fl High RDW SD 54.7 LAB L100.1900 150-450 K/mm3 Normal PLT 284 LAB L100.2000 6.2-12.0 fl Normal MPV 9.6 LAB L100.2100 47-70 % High NEUT% 79.1 LAB L100.2200 19-41 % Low LY% 10.1 LAB L100.2300 0-10 % Normal MONO% 9.7 LAB L100.2400 0-5 % Normal EO% 0.7 LAB L100.2500 0-1 % Normal BASO% 0.1 LAB L100.2550 0.0-0.9 % Normal IM GRAN % 0.300 Result Comment: IG% - Immature Granulocytes (promyelocytes, myelocytes and metamyelocytes) > 1% indicates that a LEFT SHIFT is Present. LAB L100.2620 2.0-7.7 X10 3/uL Absolute Neut High 11.2 LAB L100.2720 0.83-4.51 X10 3/ul Absolute Lymph Normal 1.44 LAB L100.5500 ADEQ PLT EST Normal ADEQUATE LAB L100.7300 ANISO Normal 2+ LAB L100.7500 POLYCHROMASIA Normal RARE LAB L100.7600 HYPOCHROMASIA Normal 2+ LAB L100.7700 MICROCYTES Normal 1+ LAB L100.8600 TARGET CELLS Normal RARE Performed By: #### L100.0100 #### [facility] [address] [place], [address] COMPREHENSIVE METABOLIC Collected: 12/01/2017 Status: F Source: [facility] 9:40 AM [facility] Order Comment: 'TROP' Serial specimen #1, #2, #3, or #4: 1 TYPE CODE TESTS RESULT OUT OF RANGE REFERENCE UNITS LAB L501.0100 74-106 mg/dL Normal GLU 92 Result Comment: Please note revised GLUCOSE reference range effective 2017. LAB L501.1000 7-18 mg/dL High BUN 59 LAB L501.1100 0.55-1.02 mg/dL High CREAT,SERUM 2.32 Result Comment: The validity of the calculated GFR AND GFRAA in patients over 70 years has not been determined. Clinical correlation is essential. LAB L501.1110 >60 mL/min Low EST GFR 22 Result Comment: Non- GFR Calc LAB L501.1115 >60 mL/min Low EST GFR - AA 27 Result Comment: GFR Calc LAB L501.1255 ml/min Normal Estimated CRCL 18.40 LAB L501.1300 10-20 RATIO High BUN/CRE 25.4 LAB L501.1500 6.4-8. g/dL Normal 2 T PROT 6.9 LAB L501.1800 3.2-5. g/dL Low 0 ALB 2.1 LAB L501.1950 2.2-4. g/dL High 2 GLOB 4.8 LAB L501.2000 0.9-2. RATIO Low 4 A/G 0.4 LAB L501.2200 8.5-10 mg/dL Normal .1 CA 9.0 LAB L501.4100 15-37 U/L Low AST 14 LAB L501.4305 45-117 U/L Normal ALK P 97 LAB L501.4405 13-56 U/L Normal ALT 13 Result Comment: Please note revised ALT reference range effective 2017. LAB L501.4600 0.20-1.00 mg/dL Normal T BILI 0.70 LAB L501.5300 136-145 mmol/L Normal NA 138 LAB L501.5600 3.5-5.1 mmol/L Normal K 4.9 LAB L501.5900 98-107 mmol/L Normal CL 106 LAB L501.6100 21.0-32.0 mmol/L Normal CO2 25.0 LAB L501.6200 5-15 Normal GAP 7 Performed By: #### L500.4050, L501.4010 #### [facility] [address] [place], [place], [id number] TROPONIN-I Collected: 12/01/2017 Status: F Source: [place] 9:40 AM [facility] REPOSITORY Order Comment: 'TROP' Serial specimen #1, #2, #3, or #4: 1 TYPE CODE TESTS RESULT OUT OF RANGE REFERENCE UNITS LAB L501.4010 <0.06 ng/mL Normal < 0.02 TROPONIN-I Result Comment: TROPONIN-I EXPECTED VALUES <0.05 NEGATIVE 0.06 - 0.59 AT RISK OF AR > OR = 0.60 SUGGEST AR Performed By: #### L500.4050, L501.4010 #### [facility] [address] [place], [address] PROTHROMBIN TIME W/INR Collected: 12/01/2017 Status: F Source: [place] 9:40 AM [facility] REPOS[facility]ORY TYPE CODE TESTS RESULT OUT OF RANGE REFERENCE UNITS LAB L300.4150 11.7-14.9 SECONDS High PROTIME 27.2 LAB L300.4200 Normal INR 2.5 Performed By: #### L300.3900, L300.4310 #### [facility] [address] [place], [address] PARTIAL THROMBOPLAST Collected: 12/01/2017 Status: F Source: [place] TIME 9:40 AM [facility] REPOS[facility]ORY TYPE CODE TESTS RESULT OUT OF REFERENCE UNITS RANGE LAB L300.4310 24.1-36.2 Seconds High PTT 63.2 Performed By: #### L300.3900, L300.4310 #### [facility] [address] [place], [address] CHEST 1 VIEW Observed: 12/01/2017 Status: F Source: [place] (PORTABLE) 9:19 AM [facility] REPOSITORY [facility] Imaging Services [address] [place] [address] Chest 1 View (Portable) MR#: [id number] Acct: [id number] Name: DI ZAPATA Rep #: [id number] : 1945 F 72 From: Carlos Cai MD PCP: Aaron Tidwell MD Status: REG ER Study: Chest 1 View (Portable) Date of Exam: 12/01/17 Exam# [id number] Ordering Dr: Meche Ramos MD STUDY: X-RAY CHEST REASON FOR EXAM: Female, 72 years old. Confusion following a recent fall. TECHNIQUE: Single AP portable view of the chest. COMPARISON: Comparison is made with prior study dated September 26, 2017. FINDINGS: The lungs are clear and expanded. There is no demonstrated pleural abnormality. There is moderate cardiac enlargement. Prominence of the left aortopulmonary window. This is unchanged. This may represent either prominence of the left pulmonary artery or enlargement of the left atrial appendage. This is unchanged. Normal mediastinum and kenn. Normal visualized pulmonary arteries. Normal visualized aortic arch and descending thoracic aorta. Normal visualized thoracic spine. There is degenerative osteoarthritis of the bilateral shoulders. There is no demonstrated abnormality of the visualized soft tissue structures of the upper abdomen. RAD/Chest 1 View (Portable) IMPRESSION: Stable examination. Electronically Signed: Carlos Cai MD at 10:06 EST Tel [phone], Service support , CC: Meche Ramos MD; Aaron Tidwell MD Oxyacetylene Cutter: Signed BRAIN/HEAD WITHOUT Observed: 12/01/2017 Status: F Source: [place] CONTRAST 9:19 AM [facility] REPOSITORY [facility] Imaging Services [address] [place] [address] Brain/Head without Contrast MR#: [id number] Acct: [id number] Name: DI ZAPATA Rep #: [id number] : 1945 F 72 From: Carlos Cai MD PCP: Aaron Tidwell MD Status: REG ER Study: Brain/Head without Contrast Date of Exam: 12/01/17 Exam# [id number] Ordering Dr: Meche Ramos MD STUDY: CT BRAIN WITHOUT CONTRAST REASON FOR EXAM: Female, 72 years old. Increasing confusion following a headache. History of scalp laceration. RADIATION DOSAGE (If Supplied By Facility): CTDIvol = ( 44.99 ) mGy, DLP = ( 779.24 ) mGycm TECHNIQUE: Transaxial CT imaging of the brain was performed without administration of intravenous contrast material. Individualized dose optimization techniques were used for this CT. COMPARISON: Comparison is made with prior study dated November 29, 2017. FINDINGS: Metallic sutures are seen in the scalp overlying the posterior left parietal occipital bone. Normal calvarium. There is mild cerebral atrophy with widening of the extra- axial spaces and ventricular dilatation. There are areas of decreased attenuation within the white matter tracts of the supratentorial brain, consistent with microvascular disease changes. Normal basal ganglia and thalami. Normal brainstem. Normal cerebellum. There is no intracranial hemorrhage. There are no findings of an acute ischemic infarction. Normal visualized paranasal sinuses. CT/Brain/Head without Contrast IMPRESSION: Chronic involutional changes of the brain. Electronically Signed: Carlos Cai MD at 11:12 EST Tel [phone], Service support , CC: Meche Ramos MD; Aaron Tidwell MD Oxyacetylene Cutter: Signed RENAL PROFILE Collected: 11/29/2017 Status: F Source: [place] 9:21 AM [facility]POS[facility] TYPE CODE TESTS RESULT OUT OF RANGE REFERENCE UNITS LAB L501.0100 74-106 mg/dL Normal GLU 103 Result Comment: Fasting Glucose result from 100 to 125 mg/dL suggests IMPAIRED HOMEOSTASIS per A.D.A. criteria. Please note revised GLUCOSE reference range effective 2017. LAB L501.1000 7-18 mg/dL High BUN 58 LAB L501.1100 0.55-1.02 mg/dL High CREAT,SERUM 2.78 Result Comment: The validity of the calculated GFR AND GFRAA in patients over 70 years has not been determined. Clinical correlation is essential. LAB L501.1110 >60 mL/min Low EST GFR 18 Result Comment: Non- GFR Calc LAB L501.1115 >60 mL/min Low EST GFR - AA 22 Result Comment: GFR Calc LAB L501.1255 ml/min Normal Estimated CRCL 15.35 LAB L501.1300 10-20 RATIO High BUN/CRE 20.9 LAB L501.1800 3.2-5. g/dL Low 0 ALB 2.2 LAB L501.2200 8.5-10 mg/dL Normal .1 CA 9.2 LAB L501.2300 2.5-4. mg/dL Normal 9 PHOS 3.9 LAB L501.5300 136-14 mmol/L Normal 5 NA 137 LAB L501.5600 3.5-5. mmol/L Normal 1 K 4.3 LAB L501.5900 98-107 mmol/L Normal CL 101 LAB L501.6100 21.0-3 mmol/L Normal 2.0 CO2 26.0 Performed By: #### L500.3600 #### [facility] [address] [place], [address] VITAMIN D,25 HYDROXY Collected: 11/29/2017 Status: F Source: [place] 9:21 AM [facility] REPOS[facility] TYPE CODE TESTS RESULT OUT OF RANGE REFERENCE UNITS LAB L506.1000 29.95-100.01 ng/mL Normal Vitamin D 33.2 25-OH Result Comment: Vitamin D 25(OH) Status Range Deficiency <20 ng/mL (50nmol/L) Insuffciency 20 - 30 ng/mL (50 - 75 nmol/L) Sufficiency 30 - 100 ng/mL (75 - 250 nmol/L) Toxicity >100 ng/mL (>250 nmol/L) Performed By: #### L506.1000 #### [facility] [address] [place], [address] PTHIN Collected: 11/29/2017 Status: F Source: [place] 9:21 AM [facility]POS[facility] TYPE CODE TESTS RESULT OUT OF RANGE REFERENCE UNITS LAB L509.1000 18.4-80.1 pg/mL Low PTHIN 2.8 Result Comment: Please Note: PTH INTACT METHOD AND REFERENCE RANGE CHANGE Effective 09/13/2017. Performed By: #### L509.1000 #### [facility] [place], [address] VITAMIN D 1,25-DIHYDROXY Collected: 11/29/2017 Status: F Source: [place] 9:21 AM [facility]POS[facility] TYPE CODE TESTS RESULT OUT OF RANGE REFERENCE UNITS LAB L3300.0960 19.9-79.3 pg/mL Normal VITD 1,25 68.7 [address]5612 Result Comment: Performed at: - [facility] [address] [id number] Vacation Sales Advisor: Jimmy Patino MD, Phone: [phone] Performed By: #### L3300.0960 #### [facility] (refer to report for specific site) refer to report for address and phone number EMERGENCY DEPARTMENT Observed: 11/29/2017 Status: F Source: [place] SUMMARY 8:44 AM [facility] REPOSITORY [facility] Medical Records Department [address] [address] Emergency Department Summary 11/29/17 0838 MR#: [id number] Acct: [id number] Name: DI ZAPATA Rep #: [id number] : 1945 72 From: Esa Roca MD PCP: Aaron Tidwell MD Status: REG ER - ER Visit Summary Date of Service: 11/29/17 Chief Complaint: Head trauma status post mechanical fall History of Present Illness: The patient is a 72 F who states she was walking on the steps to leave for her wound care appointment. Her leg twitched, which is not an abnormal occurrence. This caused her to fall. She states she hit her head. She sustained a laceration. She denies headache. She denies any trouble with her vision. Denies trouble with speech or swallowing. She denies neck pain. She denies any numbness or tingling or upper extremity. She does have problems with venous stasis and neuropathy lower extremity. She denies nausea or vomiting. She has no other complaints please read written note for complete detail. She does report bruising easily since she is on Xarelto for A. fib. She states she has not taken her morning dose. She was instructed to hold today's dose and tomorrow's dose. Physical Examination: Vital signs are marked for rapid heart rate. Had is normocephalic. She has a 2 cm laceration left parietal occipital region. There is no palpable depression. There are no clinical signs of basal skull fracture. Pupils equal round reactive. Extra muscle intact. She has no cervical spine tenderness. Bruising is noted. Heart is rapid. There is no respiratory distress and lungs are clear to auscultation. GCS is 15. Patient is alert and oriented 3. Motor is 5/5. Sensation is intact. DTRs are symmetric without clonus or Babinski. Cranial nerves II through XII are intact. Finger to nose to finger was performed adequately. Test Results: CT of the head reviewed by me interpreted radiologist no acute process. Emergency Department Course and Treatment: Because patient fell has a laceration in the fact that she is over the age of 72 and on Xarelto based on the Bulgarian CT head rule and the Hodgen rule radiologic imaging is indicated. Wound was prepped draped sterile manner. Cleansed with Betadine. The wound was irrigated. The wound was then anesthetized by local infiltration using 1% lidocaine. 3 peña were placed with good cosmesis. Treatment Plan: Patient was instructed to hold Xarelto dose today and tomorrow. Resume Xarelto on Monday. Wound care and staple removal in 7 days Disposition: Discharged home in stable and improved condition with Impression: 1. Closed head injury initial encounter 2. High risk medication, Xarelto 3. Scalp laceration 2.0 cm This note was generated with [employer] dictation software. It may contain incorrect words, spelling, and punctuation that were not noted in review of the chart prior to signing ED Disposition - Plan for ED Patient: Disposition: Home or Assisted Living Chief Complaint: Head Injury Instructions: ED Head Injury Closed, ED Laceration Scalp Stitch Or Stap Referrals: Aaron Tidwell MD [Primary Care Provider] - 7 Days for suture removal Additional Instructions: Do not take your Xarelto dose for today and tomorrow. Resume Xarelto on December 01. What to do if you have Problems For any increased pain, shortness of breath, bleeding, nausea or vomiting, chest pain, or any unexpected problems, contact your Primary Care Provider. Call [facility] ([phone]) or report to the closest Emergency Room. Call 911 if necessary. 11/29/17 0844 <Electronically signed by Esa Roca MD> Date Esa Roca MD Cosigner Signature (If Indicated): Date CC: Aaron Tidwell MD BRAIN/HEAD WITHOUT Observed: 11/29/2017 Status: F Source: [place] CONTRAST 7:54 AM [facility] REPOS[facility]ORY [facility] Imaging Services [address] [place] [address] Brain/Head without Contrast MR#: [id number] Acct: [id number] Name: DI ZAPATA Nazario Rep #: [id number] : 1945 F 72 From: Carlos Cai MD PCP: Aaron Tidwell MD Status: REG ER Study: Brain/Head without Contrast Date of Exam: 11/29/17 Exam# [id number] Ordering Dr: Esa Roca MD STUDY: CT BRAIN WITHOUT CONTRAST REASON FOR EXAM: Female, 72 years old. Laceration following a fall. The patient is on anticoagulants. RADIATION DOSAGE (If Supplied By Facility): CTDIvol = ( 44.99 ) mGy, DLP = ( 779.24 ) mGycm TECHNIQUE: Transaxial CT imaging of the brain was performed without administration of intravenous contrast material. Individualized dose optimization techniques were used for this CT. COMPARISON: None. FINDINGS: Scalp hematoma overlying the left posterior parietal bone in the convexity. Normal calvarium. There is mild cerebral atrophy with widening of the extra- axial spaces and ventricular dilatation. Normal white matter tracts of the cerebral hemispheres. Normal basal ganglia and thalami. Normal brainstem. Normal cerebellum. There is no intracranial hemorrhage. There are no findings of an acute ischemic infarction. Normal visualized paranasal sinuses. CT/Brain/Head without Contrast IMPRESSION: Chronic involutional changes of the brain. Electronically Signed: Carlos Cai MD at 8:32 EST Tel [phone], Service support , CC: Esa Roca MD; Aaron Tidwell MD Oxyacetylene Cutter: Signed EMERGENCY DEPARTMENT Observed: 11/18/2017 Status: F Source: [place] SUMMARY 10:57 PM [facility] REPOSITORY [facility] Medical Records Department [address] [place] [address] Emergency Department Summary 11/18/17 2211 MR#: [id number] Acct: [id number] Name: DI ZAPATA Rep #: [id number] : 1945 72 From: Christen Prado MD PCP: Aaron Tidwell MD Status: REG ER - ER Visit Summary Date of Service: 11/18/17 Chief Complaint: Bilateral leg ulcers History of Present Illness: The patient is a 72 F with bilateral leg ulcers. She has been going to the wound center weekly. Tonight daughter noted some blue/green drainage on the dressing so they wanted to have her wounds checked. She has not had fever or other constitutional symptoms. Physical Examination: Vital signs are gross unremarkable. Patient sitting upright in bed no acute distress. She is nontoxic appearing. Lower external examination reveals bilateral leg ulcers, right leg worse than left. Edges are clean at this time. There is some serosanguineous drainage. I see no sign of secondary infection. Test Results: [] Emergency Department Course and Treatment: Family is reassured. New dressings are applied by the daughter. Patient is to follow-up on Monday at the wound care center as planned. Treatment Plan: [] Disposition: Discharge Impression: Wound check This note was generated with [employer] dictation software. It may contain incorrect words, spelling, and punctuation that were not noted in review of the chart prior to signing ED Disposition - Plan for ED Patient: Chief Complaint: Lower Extremity Injury Referrals: Aaron Tidwell MD [Primary Care Provider] - What to do if you have Problems For any increased pain, shortness of breath, bleeding, nausea or vomiting, chest pain, or any unexpected problems, contact your Primary Care Provider. Call [facility] ([phone]) or report to the closest Emergency Room. Call 911 if necessary. 11/18/17 0953 <Electronically signed by Christen Prado MD> Date Christen Prado MD Cosigner Signature (If Indicated): Date CC: Aaron Tidwell MD DISCHARGE INSTRUCTION Observed: 11/18/2017 Status: F Source: [place] 10:17 PM [facility] REPOS[facility]ORY [facility] Medical Records Department [address] [place] [address] Discharge Instruction 11/18/172212 MR#: [id number] Acct: [id number] Name: DI ZAPATA Rep #: [id number] : 1945 72 From: Christen Prado MD PCP: Aaron Tidwell MD Status: REG ER ED Disposition - Plan for ED Patient: Disposition: Home or Assisted Living Chief Complaint: Lower Extremity Injury Instructions: ED Ulcer Venous Leg Referrals: Aaron Tidwell MD [Primary Care Provider] - Additional Instructions: Follow-up with Wound Care Center on Monday as scheduled. What to do if you have Problems For any increased pain, shortness of breath, bleeding, nausea or vomiting, chest pain, or any unexpected problems, contact your Primary Care Provider. Call [facility] ([phone]) or report to the closest Emergency Room. Call 911 if necessary. 11/18/172216 <Electronically signed by Christen Prado MD> Date Christen Prado MD Cosigner Signature (If Indicated): Date CC: Aaron Tidwell MD SCREENING MAMM (CAD), Observed: 11/17/2017 Status: F Source: [place] BILAT 9:59 AM [facility] REPOS[facility]ORY [facility] Imaging Services [address] [place] [address] SCREENING MAMM (CAD), BILAT MR#: [id number] Acct: [id number] Name: DI ZAPATA Rep #: [id number] : 1945 F 72 From: Carlos Cai MD PCP: Aaron Tidwell MD Status: REG CLI Study: SCREENING MAMM (CAD), BILAT Date of Exam: 11/17/17 Exam# [id number] Ordering Dr: Aaron Tidwell MD MAMMOGRAPHY - BILATERAL SCREENING REASON FOR EXAM: Female, 72 years old. Routine annual screening examination. PERTINENT HISTORY: Non-contributory. TECHNIQUE: Digital bilateral breast danielle (3D mammographic acquisition) in the CC and MLO projections. 2-D mediolateral oblique (MLO) and craniocaudad (CC) views of both breasts were obtained. CAD: Full Field Digital Mammography with Computer Added Detection was performed. COMPARISON: Comparison is made with prior study dated November 16, 2016. FINDINGS: Breast Composition: The breasts are heterogeneously dense, which may obscure small masses. There are no dominant masses or suspicious calcifications. A recording device is seen overlying the deep mid medial portion of the left breast. Stable appearance of the bilateral secretory and vascular calcifications. No other significant abnormalities are identified. There has been no significant change since the prior study. HPBI/SCREENING MAMM (CAD), BILAT IMPRESSION: Stable bilateral screening mammogram. Yearly follow-up mammogram recommended. (A) ASSESSMENT CATEGORY: BIRADS Category 2: Benign. A letter regarding these results will be sent to the patient by the facility within 30 days. Approximately 10% of breast cancers are not detected by mammography. A normal mammogram should not delay biopsy of a clinically suspicious abnormality. [id number] Electronically Signed: Carlos Cai MD at 11:29 EST Tel [phone], Service support , CC: Aaron Tidwell MD Oxyacetylene Cutter: Signed PROGRESS Observed: 11/15/2017 Status: COMPLETED Source: [place] 12:59 PM [facility] [place] REPOSITORY HNO ID: [id number] Author: Aaron Tidwell Service: (none) Author Type: Physician Type: Progress Notes Filed: 11/15/2017 1:10 PM Note Text: This note was created using [employer]. Subjective Di Zapata is a 72 year old female was here with her daughter for follow up. She was dealing with depression related to chronic pain in her legs, and feet, characterized as severe, burning, with pins and needles. She was seeing Dr. Carbajal but was not very satisfied with pain management. Daughter described her to be moaning at times from the pain. She was recently switched to morphine. She had a follow up next week. We called in fluoxetine which was helping depression but not insomnia. Her chronic venous ulcers were slowly improving. She was also switched to a Xarelto due to multiple interactions with warfarin. Her diabetes mellitus appeared to be diet controlled. Daughter was concerned about unsteady gait noted recently, possibly related to medications. ACTIVE PROBLEM LIST Hypertension Goal Bp (Blood Pressure) < 150/90 Rheumatoid Arthritis of Multiple Sites With Negative Rheumatoid Factor (Hcc) Ankylosing Spondylitis (Hcc) Venous Insufficiency (Chronic) (Peripheral) Atrial Fibrillation (Hcc) Type 2 Diabetes Mellitus With Stage 3 Chronic Kidney Disease (Hcc) Pulmonary Nodule Systolic Congestive Heart Failure (Hcc) Hydronephrosis Ui (Urinary Incontinence) Patent Ductus Arteriosus S/P Maze Operation for Atrial Fibrillation Ckd (Chronic Kidney Disease) Stage 3, Gfr 30-59 Ml/Min Anemia, Unspecified Hypercalcemia 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) Venous Stasis Ulcers of Both Lower Extremities (Hcc) Depressive Disorder Lumbar Radiculopathy, Chronic Gait Abnormality Review of Systems Respiratory: Negative. Cardiovascular: Positive for leg swelling. Negative for chest pain and palpitations. Gastrointestinal: Negative. Genitourinary: Negative. Musculoskeletal: Positive for arthralgias and back pain. Neurological: Positive for weakness and numbness. Objective BP 104/62 (BP Site: Left Arm, BP Position: Sitting, BP Cuff Size: Regular Adult) Pulse 76 Temp 37.7 ?C (99.9 ?F) (Left Tympanic) Resp 20 Wt 82.6 kg (182 lb) BMI 31.73 kg/m2 Physical Exam Constitutional: No distress. Cardiovascular: S1 normal and S2 normal. An irregular rhythm present. Pulmonary/Chest: Effort normal and breath sounds normal. Musculoskeletal: She exhibits edema. Wrapped. Neurological: She is alert. Ambulatory with cane. HgbA1C noted. ASSESSMENT/PLAN: 1. Depressive disorder - ICD9: 311, ICD10: F32.9 (primary diagnosis) Wean off fluoxetine. Start nortriptyline. Discussed medication dosage, usage, goals of therapy, and side effects. - FLUOXETINE 20 MG CAPSULE - NORTRIPTYLINE 25 MG CAPSULE 2. Venous stasis ulcers of both lower extremities (HCC) - ICD9: 459.81, 707.10, ICD10: I83.019, I83.029 Per Wound Care. 3. Type 2 diabetes mellitus with stage 3 chronic kidney disease, without long-term current use of insulin (HCC) - ICD9: 250.40, 585.3, ICD10: E11.22, N18.3 Controlled. Diet only. 4. Chronic atrial fibrillation (HCC) - ICD9: 427.31, ICD10: I48.2 Now on DOAC. - RIVAROXABAN 15 MG TABLET 5. Lumbar radiculopathy, chronic - ICD9: 724.4, ICD10: M54.16 Chronic low back pain Per pain management. - NORTRIPTYLINE 25 MG CAPSULE 6. Gait abnormality - ICD9: 781.2, ICD10: R26.9 Try different walkers, rent or borrow. Call for prescription if needed. Aaron Tidwell MD PROTHROMBIN TIME W/INR Collected: 11/13/2017 Status: F Source: [place] 9:28 AM [facility] REPOSITORY TYPE CODE TESTS RESULT OUT OF RANGE REFERENCE UNITS LAB L300.4150 11.7-14.9 SECONDS High PROTIME 27.0 LAB L300.4200 Normal INR 2.6 Performed By: #### L300.3900 #### [facility] [address] [place], [address] PROTHROMBIN TIME W/INR Collected: 11/10/2017 Status: F Source: [place] 8:41 AM [facility] REPOSITORY Order Comment: Send Results To: Aaron Tidwell Reason for Laboratory Test coumadin monitoring TYPE CODE TESTS RESULT OUT OF REFERENCE UNITS RANGE LAB L300.4150 11.7-14.9 SECONDS High PROTIME 45.3 LAB L300.4200 High alert INR 5.1 Result Comment: CRITICAL VALUE VERIFIED. CALLED TO JESS AT [facility] 11/10/17 0917 Maggy Cueto. RESULTS READ BACK BY SAME . Performed By: #### L300.3900 #### [facility] [address] [place], [address] PROTHROMBIN TIME W/INR Collected: 11/08/2017 Status: F Source: [place] 11:15 AM [facility] REPOS[facility]ORY TYPE CODE TESTS RESULT OUT OF REFERENCE UNITS RANGE LAB L300.4150 11.7-14.9 SECONDS High PROTIME 73.8 LAB L300.4200 High alert INR 9.6 Result Comment: CRITICAL VALUE VERIFIED. CALLED TO [facility] 11/08/17 1138 Maggy Nory. RESULTS READ BACK BY SAME . Performed By: #### L300.3900 #### [facility] [address] [place], [address] HEMOGLOBIN A1C Collected: 11/08/2017 Status: F Source: [place] 10:49 AM [facility] REPOS[facility]ORY TYPE CODE TESTS RESULT OUT OF RANGE REFERENCE UNITS LAB L501.9985 4.2-6.3 % High HGB A1C 6.9 Performed By: #### L501.9985 #### [facility] [address] [place], [address] BASIC METABOLIC Collected: 11/08/2017 Status: F Source: [place] PROFILE (BMP) 10:49 AM [facility] REPOSITORY TYPE CODE TESTS RESULT OUT OF RANGE REFERENCE UNITS LAB L501.0100 74-106 mg/dL Normal GLU 91 Result Comment: Please note revised GLUCOSE reference range effective 2017. LAB L501.1000 7-18 mg/dL Normal BUN 18 LAB L501.1100 0.55-1.02 mg/dL High CREAT,SERUM 1.53 Result Comment: The validity of the calculated GFR AND GFRAA in patients over 70 years has not been determined. Clinical correlation is essential. LAB L501.1110 >60 mL/min Low EST GFR 36 Result Comment: Non- GFR Calc LAB L501.1115 >60 mL/min Low EST GFR - AA 43 Result Comment: GFR Calc LAB L501.1300 10-20 RATIO Normal BUN/CRE 11.8 LAB L501.2200 8.5-10.1 mg/dL CA Normal 9.3 LAB L501.5300 136-145 mmol/L NA Normal 136 LAB L501.5600 3.5-5.1 mmol/L Low K 3.1 LAB L501.5900 98-107 mmol/L Low CL 97 LAB L501.6100 21.0-32.0 mmol/L Normal CO2 27.0 LAB L501.6200 5-15 Normal GAP 12 Performed By: #### L500.2500 #### [facility] [address] [place], [address] PROTIME W/INR Collected: 11/01/2017 Status: F Source: [place] F[place] 9:48 AM [facility] REPOSITORY TYPE CODE TESTS RESULT OUT OF REFERENCE UNITS RANGE LAB L9200.1001 11.9-14.4 SEC High PROTIME ISTAT 34.1 Result Comment: Reference Range 11.9 - 14.4 LAB L9200.2000 Normal INR ISTAT 3.00 Result Comment: Critical Value > 3.5 Performed By: #### L9200.0000 #### [facility] Point of Care [address] [place] [address] WOUND CTR HISTORY Observed: 10/27/2017 Status: F Source: CELIO AND PHYSICAL 8:18 PM [facility] REPOSITORY [facility] [address] [place] [address] Wound Ctr History AND Physical 10/27/17 1936 MR#: [id number] Acct: [id number] Name: DI ZAPATA Nazario Rep #: [id number] : 1945 72 From: Meche Delvalle DO PCP: Aaron Tidwell MD Status: REG RCR Y Location: WC (1) Edema, lower extremity Status: Chronic Current Visit: Yes Code(s): R60.0 - Localized edema (2) Pulmonary hypertension, secondary Status: Chronic Current Visit: Yes (3) History of cardiac radiofrequency ablation (RFA) Status: Chronic Current Visit: Yes Code(s): Z98.890 - Other specified postprocedural states Comment: 1st part of MAZE procedure Lt Atrial Ablation 01/12/17 @ [facility] (4) Heart failure with 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 Status: Chronic Current Visit: Yes Code(s): I50.30 - Unspecified diastolic (congestive) heart failure (5) 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 Status: Chronic Current Visit: Yes Code(s): Z79.01 - MCFP (current) use of anticoagulants (6) Chronic atrial fibrillation Status: Chronic Current Visit: Yes Code(s): I48.2 - Chronic atrial fibrillation Comment: DCCV 10/10, 10/2015; MAZE procedure @ [facility] 01/12/2017; (7) Chronic diastolic (congestive) heart failure Status: Chronic Current Visit: Yes Code(s): I50.32 - Chronic diastolic (congestive) heart failure (8) Hypertension Status: Chronic Current Visit: Yes Qualifiers: Hypertension type: essential hypertension Qualified Code(s): I10 - Essential (primary) hypertension Code(s): I10 - Essential (primary) hypertension (9) Type 2 diabetes mellitus Status: Chronic Current Visit: Yes Qualifiers: Diabetes mellitus complication status: with kidney complications Diabetes mellitus complication detail: with chronic kidney disease Diabetes mellitus prepleater insulin use: without intermediate use Chronic kidney disease stage: stage 3 (moderate) Qualified Code(s): E11.22 - Type 2 diabetes mellitus with diabetic chronic kidney disease; N18.3 - Chronic kidney disease, stage 3 (moderate) Code(s): E11.9 - Type 2 diabetes mellitus without complications (10) Chronic kidney disease, stage 3 Status: Chronic Current Visit: Yes (11) Spinal stenosis of lumbar region with radiculopathy Status: Chronic Current Visit: Yes Code(s): M48.061 - Spinal stenosis, lumbar region without neurogenic claudication; M54.16 - Radiculopathy, lumbar region (12) PAD (peripheral artery disease) Status: Chronic Current Visit: Yes Code(s): I73.9 - Peripheral vascular disease, unspecified (13) Venous stasis ulcer of left lower leg with edema of left lower leg Status: Chronic Current Visit: Yes Code(s): I83.892 - Varicose veins of left lower extremity with other complications; I83.028 - Varicose veins of left lower extremity with ulcer other part of lower leg; R60.9 - Edema, unspecified (14) Venous stasis ulcer of right lower leg with edema of right lower leg Status: Chronic Current Visit: Yes Code(s): I83.891 - Varicose veins of right lower extremity with other complications; I83.018 - Varicose veins of right lower extremity with ulcer other part of lower leg; R60.9 - Edema, unspecified History of Present Illness Date of Service: 10/27/17 Chief Complaint: Wounds/ulcers of b/l lower legs History of Wound: Di is a 72 yo [address] patient of Dr. Smith that presents for evaluation and treatment of lower extremity ulcers that have been present since June. Her wounds are very painful. She has been changing the dressings every other day and denies odor or redness. She was seen by Dr. Spain for consultation for possible surgical debridement and is here today for pre-operative medical clearance. She has been seen by Dr. Pelaez and had an arterial doppler which did not show any significant stenosis and showed biphasic waveforms in LE. She was unable to tolerate WILVER testing. Her venous studies showed incompetent left SFJ. She will follow up with Dr. Pelaez regarding the results of this testing for possible procedure to address SFJ incompetence. She is well known to Dr. Carbajal who helps her control the spinal stenosis pain. She follows with Dr. Childers for cardiology and was recently seen by his nurse practitioner for routine follow up. She recently saw Dr. Almonte, her heart surgeon as well and the dose of her furosemide was decreased due to change in her kidney function. It is also noted that she is on coumadin for atrial fibrillation; her INR is usually between 2 and 3, Last INR was 2.10 on 10/17/17. She is scheduled to have next INR on 11/01/17. Last EKG was on 09/26/17 and showed rate controlled A. fib with no acute S-T changes. Last CBC was 10/03/17 with hgb 9.1 and hct 29.2, which is her baseline. Last CMP done on 10/10/17 with creatinine 1.82. Last A1C 05/2017 which was 6.5%. Past Medical History Past Medical History: Chronic Problems (Last Updated 10/11/17 @ 09:06 by Gosia Martinez) Edema, lower extremity (Chronic) Pulmonary hypertension, secondary (Chronic) History of cardiac radiofrequency ablation (RFA) (Chronic) 1st part of MAZE procedure Lt Atrial Ablation 01/12/17 @ [facility] Heart failure with 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 (Chronic) 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 (Chronic) Chronic atrial fibrillation (Chronic) [facility] 10/10, 10/2015; MAZE procedure @ [facility] 01/12/2017; Status post placement of implantable loop recorder (Chronic) History of maze procedure (Chronic) Other secondary pulmonary hypertension (Chronic) Chronic diastolic (congestive) heart failure (Chronic) Symptomatic anemia (Chronic) Hypertension (Chronic) Type 2 diabetes mellitus (Chronic) Lung nodule (Chronic) Chronic kidney disease, stage 3 (Chronic) 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 calciphylaxis vs. erythema nodosum vs. dermatomyositis vs. panniculitis Mass of soft tissue of right lower extremity (Chronic) right inner upper thigh - ? calciphylaxis vs. erythema nodosum vs. dermatomyositis vs. panniculitis Surgical History: cataract, cholecystectomy, hysterectomy, - Allergies/Adverse Reactions: Allergies amlodipine besylate [From Norvasc] Allergy (Verified 10/07/17 09:31) Unknown Shortness of breath ceftriaxone Allergy (Verified 10/07/17 09:31) Rash doxazosin mesylate [From Cardura] Allergy (Verified 10/07/17 09:31) Unknown Pt doesn't remember doxycycline Allergy (Verified 10/07/17 09:31) Unknown Pt doesn't remember enalapril maleate [From Vasotec] Allergy (Verified 10/07/17 09:31) Rash enalaprilat dihydrate [From Vasotec] Allergy (Verified 10/07/17 09:31) Rash hydroxyzine HCl [From Vistaril] Allergy (Verified 10/07/17 09:31) Rash hydroxyzine pamoate [From Vistaril] Allergy (Verified 10/07/17 09:31) Rash meperidine HCl [From Demerol] Allergy (Verified 10/07/17 09:31) Rash Sulfa (Sulfonamide Antibiotics) Allergy (Verified 10/07/17 09:31) Hives sulfamethoxazole [From Bactrim] Allergy (Verified 10/07/17 09:31) Hives trimethoprim [From Bactrim] Allergy (Verified 10/07/17 09:31) Hives Home Medications: Ambulatory Orders Medication Instructions Recorded Metoprolol Tartrate [Lopressor 12.5 mg PO BID #90 tab 11/06/15 (beta alok)] - Family History Maternal Family History: Family History (Last Reviewed 10/27/17 @ 19:40 by Meche Delvalle DO) Mother Diabetes Brother Diabetes Son Hypertension Daughter Arthritis Diabetes Hypertension Paternal Family History: Family History (Last Reviewed 10/27/17 @ 19:40 by Meche Delvalle DO) Mother Diabetes Brother Diabetes Son Hypertension Daughter Arthritis Diabetes Hypertension Lives: Spouse/ Significant Other Smoking Status: Never smoker Tobacco Use: Non-smoker Alcohol: None Drugs: None Review of Systems Constitutional: Denies: Chills, Fever, Weight Change Eyes: Denies: Pain, Vision Change HEENT: Reports: Difficulty Hearing. Denies: Nasal Congestion, Sinus Drainage, Sore Throat Cardiovascular: Denies: Chest Pain, Palpitations Respiratory: Denies: Cough, Shortness of Breath Gastrointestinal: Denies: Diarrhea, Nausea, Vomiting Genitourinary: Denies: Dysuria, Hematuria Musculoskeletal: Reports: Joint Pain, Leg Pain Skin: Reports: Wounds Neurological: Reports: Numbness, Tingling Psychiatric: Reports: Anxiety, Depression Endocrine: Reports: Heat/ Cold Intolerance Hematologic/ Lymphatic: Reports: Easy Bruising, Easy Bleeding - Physical Exam Vital Signs Temp Pulse Resp BP 97.5 F L 95 16 110/68 10/27/17 15:59 10/27/17 15:59 10/27/17 15:59 10/27/17 15:59 General: Alert, Oriented x3, Cooperative, No apparent distress HEENT: Atraumatic, EOMI, Normocephalic Oral: Moist Mucosa Neck: Supple, No JVD, Negative Carotid Bruits Lungs: Clear to auscultation Cardiovascular: Regular rate, Regular Rhythm Abdomen: Bowel Sounds Present, Soft, Non Tender, Non-Distended, Obese Extremities: Edema, Tenderness Skin: Ulcer/ Wound Wound Measurements and Assessment WC - Nurse 2 - General Ulcer CM Notes Start: 10/27/17 15:59 Freq: Status: Active Protocol: Activity Type Activity Date Activity User E-Sign Co-Sign Detail Recorded Client Recorded Date Recorded By Document 10/27/17 16:51 TM [id number] 10/27/17 16:55 Wound Center Nurse 2 [Procedure/Treatment] #2 Left calf -Time 16:51 -Correct Patient Yes -Correct Side, Site, Position Yes -Correct Procedure Yes Musculoskeletal: Tenderness Neurological: Unsteady Gait Psych/Mental Status: Normal Affect, Appropriate, Alert and oriented to time, place, person, mood and affect Debridement Note Post-Debridement Measurements/Treatment WC - Nurse 2 - General Ulcer CM Notes Start: 10/27/17 15:59 Freq: Status: Active Protocol: Activity Type Activity Date Activity User E-Sign Co-Sign Detail Recorded Client Recorded Date Recorded By Document 10/27/17 16:51 TM [id number] 10/27/17 16:55 Wound Center Nurse 2 #2 Left calf -Time 16:51 No debridement was completed today Assessment/Plan Active Problems (Last Updated 10/11/17 @ 09:06 by Gosia Martinez) Edema, lower extremity (Chronic) Pulmonary hypertension, secondary (Chronic) History of cardiac radiofrequency ablation (RFA) (Chronic) 1st part of MAZE procedure Lt Atrial Ablation 01/12/17 @ [facility] Heart failure with 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 (Chronic) MCFP current use of anticoagulant (Chronic) Chronic atrial fibrillation (Chronic) [facility] 10/10, 10/2015; MAZE procedure @ [facility] 01/12/2017; Chronic diastolic (congestive) heart failure (Chronic) Hypertension (Chronic) Type 2 diabetes mellitus (Chronic) Chronic kidney disease, stage 3 (Chronic) 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 Delayed healing. venous insufficiency. Malnutrition suspected. Lower extremity pain Plan: Di was evaluated for pre-operative clearance. I personally performed a history and physical and reviewed her recent labs and EKG and do not feel that it is necessary to repeat these at this time. I feel that she is medically cleared for surgery as long as her INR done on 11/01/17 is in range between 2-[address] Spain feels comfortable with not discontinuing her coumadin prior to surgery. Continue to use tubigrips for light compression. She understands the preoperative indications, planned procedure, possible benefits, risks, complications, and anticipated healing time and management. She understands this will still be a staged comprehensive wound healing program. Anticipated anesthesia is MAC and local. She is scheduled to follow up with Dr. Spain on Monday11/01/17. 10/27/172017 <Electronically signed by Meche Delvalle DO> Date Meche Delvalle DO CC: Signed CARDIOLOGY VISIT Observed: 10/23/2017 Status: F Source: [place] REPORT 6:08 PM [facility] REPOSITORY [facility] [address] [place] [address] OFFICE VISIT Date of Service: 10/11/17 MR#: [id number] Acct: [id number] Name: DI ZAPATA Rep #: [id number] : 1945 Provider: JAC Breaux Age/Sex: 71/F Location: [facility] Status: Signed HPI 3 M FU: Details: DI ZAPATA, is a 71 F who presents to the office today for a car vascular outpatient follow-up. Patient is a history of atrial fibrillation status post failed cardioversion in 2016 and multiple ablation attempts, pulmonary hypertension, hypertension, and hypercalcemia. Patient has been evaluated by pulmonology and per their documentation there was no findings on CT scan indicating pulmonary sarcoidosis. Patient followed up with Dr. Almonte, who maintained her Lasix at 40 mg once a day. Pt denies chest, arm, jaw, or neck discomfort. His exercise tolerance is stable. Pt denies symptoms of palpitations, near syncopal or syncopal episodes. Pt denies edema or claudication issues. Pt. denies orthopnea, PND, fever, chills, blood in urine, blood in stool, myalgia, or unexplainable fatigue. She continues to have lower extremity ulcers. She denies any worsening shortness of breath. Pt. sleeps on a couch d/t spinal stenosis, loop recorder, and Bipap machine. Pt. states lightheadedness/dizziness with quick position changes. Pt. will be seeing Dr. Pelaez for further evaluation for possible venous insufficiency contributing to her lower extremity ulcers. Intake Vital Signs10/11/17 Height 5 ft 3 in 10/11/17 Weight: 198 lb 10/11/17 Body Mass Index (BMI) 35.0 10/11/17 Blood Pressure 120/70 10/11/17 Blood Pressure Location Lt brachial Intake Visit Reasons: 3 M Census Enumerator Required: No Accompanied by: Daughter Is patient in pain?: Yes (JAIRO lower extremity pain, ache) Pain scale (1-10): 7 Allergies amlodipine besylate [From Norvasc] Allergy (Verified 10/07/17 09:31) Unknown ceftriaxone Allergy (Verified 10/07/17 09:31) Rash doxazosin mesylate [From Cardura] Allergy (Verified 10/07/17 09:31) Unknown doxycycline Allergy (Verified 10/07/17 09:31) Unknown enalapril maleate [From Vasotec] Allergy (Verified 10/07/17 09:31) Rash enalaprilat dihydrate [From Vasotec] Allergy (Verified 10/07/17 09:31) Rash hydroxyzine HCl [From Vistaril] Allergy (Verified 10/07/17 09:31) Rash hydroxyzine pamoate [From Vistaril] Allergy (Verified 10/07/17 09:31) Rash meperidine HCl [From Demerol] Allergy (Verified 10/07/17 09:31) Rash Sulfa (Sulfonamide Antibiotics) Allergy (Verified 10/07/17 09:31) Hives sulfamethoxazole [From Bactrim] Allergy (Verified 10/07/17 09:31) Hives trimethoprim [From Bactrim] Allergy (Verified 10/07/17 09:31) Hives Medications Metoprolol Tartrate [Lopressor (beta alok)] 12.5 mg PO BID #90 tab 11/06/15 [Rx Confirmed 10/11/17] Aspirin [Adult Low Dose Aspirin EC] 81 mg PO DAILY 03/03/17 [History Confirmed 10/11/17] warfarin 4 mg tablet 4 mg PO MOWEFR 09/28/17 [History Confirmed 10/11/17] Gabapentin [Neurontin] 100 mg PO 4X/DAY 09/29/17 [History Confirmed 10/11/17] Warfarin [Coumadin] 2 mg PO SUTUTHSA 09/29/17 [History Confirmed 10/11/17] Fluoxetine [Prozac] 20 mg PO DAILY 09/30/17 [History Confirmed 10/11/17] furosemide 40 mg tablet 40 mg PO QDAY tab 10/11/17 [History Confirmed 10/11/17] oxycodone 10 mg tablet 10 mg PO ONCE 10/11/17 [History Confirmed 10/11/17] Ejection fraction %: 55 to 59 [facility] Medical History Pulmonary hypertension, secondary (Acute) Dyspnea on exertion (Acute) 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 (Chronic) Chronic atrial fibrillation (Chronic) Status post placement of implantable loop recorder (Chronic) Other secondary pulmonary hypertension (Chronic) Chronic diastolic (congestive) heart failure (Chronic) Symptomatic anemia (Chronic) Hypertension (Chronic) Type 2 diabetes mellitus (Chronic) Lung nodule (Chronic) Chronic kidney disease, stage 3 (Chronic) PAD (peripheral artery disease) (Chronic) Venous stasis ulcer of left lower leg with edema of left lower leg (Chronic) Venous stasis ulcer of right lower leg with edema of right lower leg (Chronic) GERD (gastroesophageal reflux disease) (Acute) Hypersomnia (Acute) LYN (obstructive sleep apnea) (Acute) Surgical History History of cardiac radiofrequency ablation (RFA) (Resolved) History of maze procedure (Chronic) Family History Mother Diabetes Brother Diabetes Son Hypertension Daughter Arthritis Diabetes Hypertension Social History Smoking Status: Never smoker alcohol intake: never substance use type: does not use caffeine: Yes Type: coffee, tea what type of physical activity do you participate in: other details: tredmill frequency: daily duration: 15-30 minutes/day seatbelt use: always do you feel safe at home: Yes ROS Const Const: Negative for fatigue, weakness, body ache, fever(s) or chills ENT ENT: Positive for dizziness Cardio Chest Pain: No Palpitations: Positive for No Edema: Bilateral (wrapped) Muscle aches with walking: None Resp Respiratory: Negative for SOB with activity, SOB at rest, SOB orthopnea\SOB lying down or paroxysmal nocturnal dyspnea GI GI: Negative nausea, black,tarry stools, bright, red blood in stools or vomiting blood/hematemesis : Negative for hematuria or frequent nighttime urination/ nocturia Musc Musc: Negative for muscle aches/ myalgia Neuro Neuro: Negative for weakness, Positive for dizziness, Positive for lightheadedness, Negative for near syncope, Negative for syncope, Negative for orthostatic symptoms Endo Endo: Negative for fatigue Cardiology Exam Const Appearance: cooperative, healthy appearing, comfortable and no acute distress Orientation: alert, awake and oriented x3 Head Head: normal to inspection Mouth: oral mucosae normal Neck Neck: no JVD and normal visual inspection Carotids: normal carotid upstroke Chest Chest inspection: normal inspection of the chest and normal respiratory effort Auscultation: Bilateral: Clear to Auscultation Cardio Rate: regular rate Rhythm: irregular rhythm Heart sounds: S1 normal and S2 normal; negative rub or gallop GI GI: normal to inspection Neuro General: alert, awake, oriented x3 and CN's II-XI intact bilaterally Skin Skin: no rashes or lesions noted Extremities Pulses: Normal: Right Posterior Tibial Pulse, Left Posterior Tibial Pulse, Right Radial Pulse, Left Radial Pulse Lower Extremity Edema: +1: Bilateral (wrapped) Psych Psychological: normal affect Assessment AND Plan 1. Chronic atrial fibrillation I48.2 DCCV 10/10, 10/2015; MAZE procedure @ [facility] 01/12/2017; NICOLE Medeiros Patient's heart rate is well-controlled today in office. We will continue current beta-alok and Coumadin therapy. We will continue to monitor this through exam and ECGs as needed. 2. Dyspnea on exertion R06.09 NICOLE Medeiros Patient states this has not worsened. Most recently her heart surgeon has maintained her Lasix to 40 mg once a day. We will continue to monitor this. We will not make any medication regimen changes. 3. Localized edema R60.0 NICOLE Medeiros Patient continues to have lower extremity pedal edema and lower extremity ulcers. Hopefully the increase in her diuretic will help with the edema. She was reminded to elevate her legs when sitting and sleeping. She was also reminded to watch her salt intake. She will be following up with vascular surgeon in the near future for venous insufficiency and recommendation to help with lower extremity ulcers. 4. Essential hypertension I10 NICOLE Medeiros Patient's blood pressure is well-controlled today in the office. We will continue to monitor this. We will not make any medication regimen changes. 5. Pulmonary hypertension, secondary Onofre Breaux VAMP [employer]ONER-C Patient will continue with diuretic and CPAP for this. We will continue to monitor this. Plan Detail Additional Comments - NICOLE Borrego Discussed the above patient with Dr. Muñoz in Dr. Childers's absence, he agrees with the plan of care. Thank you for allowing us to participate in the patients plan of care, if you have any questions please do not hesitate to call. This note was generated using a voice recognition system and there may be incorrect words, spelling or punctuation that were not noted when reviewing the office note prior to saving. 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) Coding Level of Care Code Off vis,est,level 3 Diagnoses Chronic atrial fibrillation I48.2 Dyspnea on exertion R06.09 Localized edema R60.0 Essential hypertension I10 Hypertension type: essential hypertension Pulmonary hypertension, secondary 10/18/17 1212 <Electronically signed by Jose KELLYC> Date Jose RIVERA 10/23/17 1808<Electronically signed by Glen Muñoz MD> Cosigner Signature: Date (if applicable) Glen Muñoz MD CC: Aaron Tidwell MD PROGRESS Observed: 10/19/2017 Status: COMPLETED Source: [place] 2:46 PM [facility] REPOSITORY HNO ID: [id number] Author: Aaron Tidwell Service: (none) Author Type: Physician Type: Progress Notes Filed: 10/19/2017 2:59 PM Note Text: This note was created using [employer]. Subjective Di Zapata is a 72 year old female was here for follow up. She had issues with hypercalcemia and there was concern for pulmonary sarcoidosis. Dr. Wylie did preliminary work up including CT scan of her chest and pulmonary function tests, but biopsy was not yet pursued. Meanwhile, she developed issues with leg pain, edema, dermatitis, and cellulitis last fall. She was admitted Sep.29- for congestive heart failure, venous stasis dermatitis and leg ulcers. She was now going to the wound center. She improved with diuresis. Unfortunately this had to be reduced due to worsening kidney disease. She just had what sounded like an arterial duplex to evaluate for peripheral vascular disease. Results were pending. She was on chronic pain medications from Dr. Carbajal, and she just had an epidural injection 2 days ago. Her diabetes mellitus was diet controlled only. Due to congestive heart failure and CKD, her metformin was discontinued. ACTIVE PROBLEM LIST Hypertension Goal Bp (Blood Pressure) < 150/90 Rheumatoid Arthritis of Multiple Sites With Negative Rheumatoid Factor (Hcc) Ankylosing Spondylitis (Hcc) Venous Insufficiency (Chronic) (Peripheral) Atrial Fibrillation ([facility]) Type 2 Diabetes Mellitus With Stage 3 Chronic Kidney Disease ([facility]) Pulmonary Nodule Systolic Congestive Heart Failure (Hcc) Hydronephrosis Ui (Urinary Incontinence) Patent Ductus Arteriosus S/P Maze Operation for Atrial Fibrillation Ckd (Chronic Kidney Disease) Stage 3, Gfr 30-59 Ml/Min Anemia, Unspecified Hypercalcemia 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) Venous Stasis Ulcers of Both Lower Extremities ([facility]) Current Outpatient Prescriptions: gabapentin (NEURONTIN) 100 mg capsule Take 100 mg by mouth four times daily. Per Dr. Carbajal OXYCONTIN 20 mg 12 hr tablet Take 20 mg by mouth twice daily. Per Dr. Carbajal. FLUoxetine (PROZAC) 20 mg capsule Take 1 capsule by mouth once daily. furosemide (LASIX) 20 mg tablet Take 1 tablet by mouth every other day. (Patient taking differently: Take 20 mg by mouth once daily. ) aspirin, enteric coated (ASPIR-LOW) 81 mg EC tablet Take 1 tablet by mouth once daily. metoprolol tartrate, short acting, (LOPRESSOR) 25 mg tablet Take 0.5 tablets by mouth twice daily. 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 Review of Systems Constitutional: Negative. Respiratory: Negative. Cardiovascular: Positive for leg swelling. Negative for chest pain and palpitations. Gastrointestinal: Negative. Genitourinary: Negative. Musculoskeletal: Positive for arthralgias, back pain and myalgias. Skin: Positive for rash and wound. Objective BP 128/82 (BP Site: Right Arm, BP Position: Sitting, BP Cuff Size: Regular Adult) Pulse 92 Temp 36.4 ?C (97.5 ?F) (Left Tympanic) Resp 16 Wt 87.5 kg (193 lb) SpO2 95% BMI 33.65 kg/m2 Physical Exam Constitutional: No distress. Eyes: Conjunctivae are normal. No scleral icterus. Neck: No JVD present. Cardiovascular: S1 normal and S2 normal. An irregular rhythm present. Exam reveals no gallop. No murmur heard. Pulmonary/Chest: Effort normal. No respiratory distress. She has wheezes. She has no rales. Abdominal: Soft. There is no tenderness. Musculoskeletal: She exhibits edema. 2+ edema. Both legs with clean compression dressing. Wounds were not visible and wound care follow up was tomorrow. Neurological: She is alert. ASSESSMENT/PLAN: 1. Venous insufficiency (chronic) (peripheral) - ICD9: 459.81, ICD10: I87.2 (primary diagnosis) Continue current treatments. 2. Venous stasis ulcers of both lower extremities (HCC) - ICD9: 459.81, 707.10, ICD10: I83.019, I83.029 Continue with Wound Care. 3. Need for vaccination - ICD9: V05.9, ICD10: Z23 - TETANUS/DIPTHERIA BOOSTER (OVER 7), PF IM - Patient indicated understanding and willingness to follow recommendations. 4. Type 2 diabetes mellitus with stage 3 chronic kidney disease, without long-term current use of insulin (HCC) - ICD9: 250.40, 585.3, ICD10: E11.22, N18.3 worsening control - No current medication. Monitor. - BASIC METABOLIC PNL - HGB A1C 5. Encounter for screening mammogram for breast cancer - ICD9: V76.12, ICD10: Z12.31 Send to [facility]. - ROSA SCREENING 6. Hypercalcemia - ICD9: 275.42, ICD10: E83.52 Recheck. Follow up next month as previously scheduled. Aaron Tidwell MD CNOV Observed: 10/19/2017 Status: COMPLETED Source: [place] 11:40 AM [facility] [place] REPOSITORY Office Visit (INTMWS) DI ZAPATA ([id number]) 1945 F Date Time Provider Department 10/19/17 11:40 AM AARON TIDWELL During your visit today, we recorded the following information about you: Temperature Pulse Respiration Blood pressure 97.5 degrees 92/minute 16/minute 128/82 Weight 87.5 kg Aaron Tidwell MD 10/19/2017 2:59 PM Signed This note was created using [employer]. Subjective Di Zapata is a 72 year old female was here for follow up. She had issues with hypercalcemia and there was concern for pulmonary sarcoidosis. Dr. Wylie did preliminary work up including CT scan of her chest and pulmonary function tests, but biopsy was not yet pursued. Meanwhile, she developed issues with leg pain, edema, dermatitis, and cellulitis last fall. She was admitted Sep.29- for congestive heart failure, venous stasis dermatitis and leg ulcers. She was now going to the wound center. She improved with diuresis. Unfortunately this had to be reduced due to worsening kidney disease. She just had what sounded like an arterial duplex to evaluate for peripheral vascular disease. Results were pending. She was on chronic pain medications from Dr. Carbajal, and she just had an epidural injection 2 days ago. Her diabetes mellitus was diet controlled only. Due to congestive heart failure and CKD, her metformin was discontinued. ACTIVE PROBLEM LIST Hypertension Goal Bp (Blood Pressure) ANDlt; 150/90 Rheumatoid Arthritis of Multiple Sites With Negative Rheumatoid Factor (Hcc) Ankylosing Spondylitis (Hcc) Venous Insufficiency (Chronic) (Peripheral) Atrial Fibrillation (Hcc) Type 2 Diabetes Mellitus With Stage 3 Chronic Kidney Disease (Hcc) Pulmonary Nodule Systolic Congestive Heart Failure (Hcc) Hydronephrosis Ui (Urinary Incontinence) Patent Ductus Arteriosus S/P Maze Operation for Atrial Fibrillation Ckd (Chronic Kidney Disease) Stage 3, Gfr 30-59 Ml/Min Anemia, Unspecified Hypercalcemia 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) Venous Stasis Ulcers of Both Lower Extremities (Hcc) Current Outpatient Prescriptions: gabapentin (NEURONTIN) 100 mg capsule Take 100 mg by mouth four times daily. Per Dr. Carbajal OXYCONTIN 20 mg 12 hr tablet Take 20 mg by mouth twice daily. Per Dr. Carbajal. FLUoxetine (PROZAC) 20 mg capsule Take 1 capsule by mouth once daily. furosemide (LASIX) 20 mg tablet Take 1 tablet by mouth every other day. (Patient taking differently: Take 20 mg by mouth once daily. ) aspirin, enteric coated (ASPIR-LOW) 81 mg EC tablet Take 1 tablet by mouth once daily. metoprolol tartrate, short acting, (LOPRESSOR) 25 mg tablet Take 0.5 tablets by mouth twice daily. 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 Review of Systems Constitutional: Negative. Respiratory: Negative. Cardiovascular: Positive for leg swelling. Negative for chest pain and palpitations. Gastrointestinal: Negative. Genitourinary: Negative. Musculoskeletal: Positive for arthralgias, back pain and myalgias. Skin: Positive for rash and wound. Objective BP 128/82 (BP Site: Right Arm, BP Position: Sitting, BP Cuff Size: Regular Adult) Pulse 92 Temp 36.4 ?C (97.5 ?F) (Left Tympanic) Resp 16 Wt 87.5 kg (193 lb) SpO2 95% BMI 33.65 kg/m2 Physical Exam Constitutional: No distress. Eyes: Conjunctivae are normal. No scleral icterus. Neck: No JVD present. Cardiovascular: S1 normal and S2 normal. An irregular rhythm present. Exam reveals no gallop. No murmur heard. Pulmonary/Chest: Effort normal. No respiratory distress. She has wheezes. She has no rales. Abdominal: Soft. There is no tenderness. Musculoskeletal: She exhibits edema. 2+ edema. Both legs with clean compression dressing. Wounds were not visible and wound care follow up was tomorrow. Neurological: She is alert. ASSESSMENT/PLAN: 1. Venous insufficiency (chronic) (peripheral) - ICD9: 459.81, ICD10: I87.2 (primary diagnosis) Continue current treatments. 2. Venous stasis ulcers of both lower extremities (HCC) - ICD9: 459.81, 707.10, ICD10: I83.019, I83.029 Continue with Wound Care. 3. Need for vaccination - ICD9: V05.9, ICD10: Z23 - TETANUS/DIPTHERIA BOOSTER (OVER 7), PF IM - Patient indicated understanding and willingness to follow recommendations. 4. Type 2 diabetes mellitus with stage 3 chronic kidney disease, without long-term current use of insulin (HCC) - ICD9: 250.40, 585.3, ICD10: E11.22, N18.3 worsening control - No current medication. Monitor. - BASIC METABOLIC PNL - HGB A1C 5. Encounter for screening mammogram for breast cancer - ICD9: V76.12, ICD10: Z12.31 Send to [facility]. - ROSA SCREENING 6. Hypercalcemia - ICD9: 275.42, ICD10: E83.52 Recheck. Follow up next month as previously scheduled. Aaron Tidwell MD Referring Provider: SELF [200] Allergies As of Date: 10/19/2017 Noted Allergy Reaction BACTRIM (SULFAMETHOXAZOLE-TRIMETH*06/29/2007 2 - Rash CARDURA (DOXAZOSIN) 04/24/2013 16 - Unknown CEFTRIAXONE 08/10/2017 14 - Other: See Comments Comments: Veins turned red DEMEROL (MEPERIDINE (PF)) 04/18/2006 DOXYCYCLINE 04/18/2006 NORVASC (AMLODIPINE BESYLATE) 04/06/2011 7 - Swelling SULFA (SULFONAMIDE ANTIBIOTICS) 07/04/2005 2 - Rash VASOTEC (ENALAPRIL MALEATE) 04/18/2006 3 - Cough VISTARIL (HYDROXYZINE HCL) 04/18/2006 Date Reviewed: 10/19/2017 Reviewed by: Luz Pascual LPN - Fully Assessed Reason for Visit: Hospital Follow Up [177] Primary Visit Diagnosis:Venous insufficiency (chronic) (peripheral) [I87.2] Other Visit Diagnoses:Venous stasis ulcers of both lower extremities (HCC) [I83.019, I83.029] Need for vaccination [Z23] Type 2 diabetes mellitus with stage 3 chronic kidney disease, without long-term current use of insulin (HCC) [E11.22, N18.3] Encounter for screening mammogram for breast cancer [Z12.31] Hypercalcemia [E83.52] Order(s):TETANUS/DIPTHERIA BOOSTER (OVER 7), PF IM [[id number]] Order #: [id number] ROSA SCREENING [[id number]] Order #: [id number] FUTURE BASIC METABOLIC PNL [SQBMP] Order #: [id number] FUTURE HGB A1C [KVEHP6O] Order #: [id number] FUTURE Prescriptions as of 10/19/2017 Sig: GABAPENTIN 100 MG CAPSULE Take 100 mg by mouth four carlos* OXYCONTIN 20 MG TABLET,CRUSH * Take 20 mg by mouth twice jennifer* FLUOXETINE 20 MG CAPSULE Take 1 capsule by mouth once * FUROSEMIDE 20 MG TABLET Take 1 tablet by mouth every * Patient taking differently: Take 20 mg by mouth once gilmar* ASPIRIN 81 MG TABLET,DELAYED * Take 1 tablet by mouth once d* METOPROLOL TARTRATE 25 MG TAB* Take 0.5 tablets by mouth twi* COMPOUNDED PRESCRIPTION Thigh High Compression Stocki* WARFARIN 5 MG TABLET Take 5 mg daily (per * Medication notes this encounter OXYCONTIN 20 MG TABLET,CRUSH RESISTANT,EXTENDED RELEASE >> Aaron Tidwell MD 10/19/2017 12:22 PM >> AARON TIDWELL MD [facility] Oct 19, 2017 12:22 PM Received from: External Pharmacy WARFARIN 5 MG TABLET >> Luz Pascual LPN 10/19/2017 12:09 PM >> LUZ PASCUAL LPN [facility] Oct 19, 2017 12:09 PM Taking 3mg all days METFORMIN 500 MG TABLET >> Luz Pascual LPN 10/19/2017 12:08 PM >> LUZ PASCUAL LPN [facility] Oct 19, 2017 12:08 PM Discontinued by hospitalist Problem List As Of Date 10/19/2017 Noted Resolved Hypertension goal BP (blood pressure) < 150/90 *INVALID FOR* More... Rheumatoid arthritis of multiple sites with neg*INVALID FOR* More... 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 Other diseases of lung, not elsewhere classifie*INVALID FOR*02/11/2015 More... SLEEP APNEA NOS [G47.30] INVALID FOR*04/18/2006 Obesity, unspecified [E66.9] INVALID FOR*02/11/2015 Impaired fasting glucose [R73.01] INVALID FOR*02/27/2012 More... 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] INVALID FOR*02/11/2015 Candidal intertrigo [B37.2] INVALID FOR*02/11/2015 Intertrigo [L30.4] INVALID FOR*02/11/2015 Eczema Dermatitis and Other Eczema, due to Unsp*INVALID FOR*09/28/2016 Diabetes mellitus (HCC) [E11.9] INVALID FOR*01/05/2015 Venous insufficiency [I87.2] INVALID FOR*07/15/2015 Edema [R60.9] INVALID FOR*02/11/2015 Pain in joint, shoulder region [M25.519] INVALID FOR*02/11/2015 Disorders of bursae and tendons in shoulder reg*INVALID FOR*09/28/2016 Diabetes mellitus type 2, controlled [E11.9] INVALID FOR*02/11/2015 DM (diabetes mellitus), type 2 (HCC) [E11.9] INVALID FOR*07/15/2015 Venous insufficiency (chronic) (peripheral) [I8*INVALID FOR* More... Atrial fibrillation (HCC) [I48.91] INVALID FOR* More... Type 2 diabetes mellitus with diabetic chronic *INVALID FOR*01/06/2016 Lymphedema, not elsewhere classified [I89.0] INVALID FOR*05/17/2017 Type 2 diabetes mellitus with stage 3 chronic k*INVALID FOR* More... Pulmonary nodule [R91.1] INVALID FOR* More... Systolic congestive heart failure (HCC) [I50.20]INVALID FOR* More... Hydronephrosis [N13.30] INVALID FOR* UI (urinary incontinence) [R32] INVALID FOR* Patent ductus arteriosus [Q25.0] INVALID FOR* More... S/P Maze operation for atrial fibrillation [Z98*INVALID FOR* More... CKD (chronic kidney disease) stage 3, GFR 30-59*INVALID FOR* More... Anemia, unspecified [D64.9] INVALID FOR* Hypoxemia requiring supplemental oxygen [R09.02*INVALID FOR*10/19/2017 Hypercalcemia [E83.52] INVALID FOR* Hypervitaminosis D (rule out granulomatous dise*INVALID FOR* Venous stasis ulcers of both lower extremities *INVALID FOR* Medications Discontinued During This Encounter metFORMIN (GLUCOPHAGE) 500 mg tablet 30 t* 11 01/04/2017 10/19/2017 Route: ORAL Sig: Take 1 tablet by mouth daily with breakfast. Disc: Discontinued by another Health Care Provider Follow-up and Disposition History Recorded Encounter Status:Closed by AARON TIDWELL MD on 10/19/17 VENOUS DUPLEX LOWER Observed: 10/18/2017 Status: F Source: [place] 11:31 AM [facility] [place] REPOSITORY [facility] Cardiovascular Services [address] [place] [address] Venous Duplex US - Jairo Extrem 10/18/17 0952 MR#: [id number] Acct: [id number] Name: DI ZAPATA Rep #: [id number] : 1945 72 From: Santiago Pelaez MD Attending Dr: Santiago Pelaez MD Status: REG CLI Ordering Dr: Santiago Pelaez MD Date: 10/18/17 Location: [facility] Sex: F C Admitted: Reason For Study: LEG PAIN AND SWELLING RIGHT LEFT GSV is normal. GSV is normal. CFV is compressible, spontaneous, competent CFV is compressible, spontaneous, competent, and demonstrates pulsatile venous flow. and demonstrates pulsatile venous flow. FV is compressible, spontaneous, competent FV is compressible, spontaneous, competent and demonstrates pulsatile venous flow. and demonstrates pulsatile venous flow. POP V is compressible, spontaneous, POP V is compressible, spontaneous, competent and demonstrates pulsatile venous competent and demonstrates pulsatile venous flow. flow. T/P Trunk is compressible. T/P Trunk is compressible. PTV is compressible. PTV is compressible. RT PerV is compressible. LT PerV is compressible. SFJ is competent SFJ is incompetent for greater than .5 sec GSV is competent GSV is competent SSV is competent. SSV is competent. Procedure Exam performed in department. Interpretation Summary 1. Bilateral no DVt or SVt 2. Reflux on in left SFJ. Ordering Physician: Santiago Pelaez Referring Physician: Santiago Pelaez Performed By: Brynn Alexander RVT 10/18/17 1131 Date Santiago Pelaez MD CC: Santiago Pelaez MD; Aaron Tidwell MD Date Dictated: 10/18/17 0952 Date Transcribed: 10/18/17 113 Oxyacetylene Cutter: Signed ARTERIAL DUPLEX US Observed: 10/18/2017 Status: F [facility] 11:30 AM [facility] [place] REPOSITORY [facility] Cardiovascular Services [address] [place] [id number] Art Duplex US Bilat Lower Ext 10/18/17 1017 MR#: [id number] Acct: [id number] Name: DI ZAPATA Rep #: [id number] : 1945 72 From: Santiago Pelaez MD Attending Dr: Santiago Pelaez MD Status: REG CLI Ordering Dr: Santiago Pelaez MD Date: 10/18/17 Location: [facility] Sex: F C Admitted: Reason For Study: Atherosclerosis with claudication Right Velocities Left Velocities Ext. Iliac Artery, dist = 142.0 cm./sec. Ext Iliac Artery, dist = 88.8 cm./sec. Common Femoral Artery, prox = 105.0 cm./sec. Common Femoral Artery, prox = 113.0 cm./sec. Supf Femoral Artery, prox = 95.1 cm./sec. Supf. Femoral Artery, prox = 90.4 cm./sec. Supf Femoral Artery, mid = 96.6 cm./sec. Supf. Femoral Artery, mid = 103.0 cm./sec. Supf Femoral Artery, dist. = 83.3 cm./sec. Supf. Femoral Artery, dist = 80.3 cm./sec. Profunda Femoral Artery = 84.9 cm./sec. Profunda Femoral Artery = 66.8 cm./sec. Popliteal Artery, prox. = 72.1 cm./sec. Popliteal Artery, proximal, = 58.0 cm./sec. Popliteal Artery, mid = 64.5 cm./sec. Popliteal Artery, mid = 58.6 cm./sec. Popliteal Artery, dist = 53.4 cm./sec. Popliteal Artery, distal = 59.2 cm./sec. Post. Tibial Artery, prox = 39.9 cm./sec. Post. Tibial Artery, prox = 35.2 cm./sec. Post. Tibial Artery, mid = 36.4 cm./sec. Post Tibial Artery, dist. = 72.7 cm./sec. Peroneal Artery, prox = 21.4 cm./sec. Ant.Tibial Artery, prox = 49.8 cm./sec. Peroneal Artery, mid = 31.4 cm./sec. Ant Tibial Artery, mid = 48.7 cm./sec. Ant. Tibial Artery, prox = 50.7 cm./sec. Ant. Tibial Artery, mid = 49.9 cm./sec. Procedure Limited exam due to pain and location of ulcers. Pt unable to tolerate ABIs. Exam performed in department. Interpretation Summary 1. no significant stenosis seen in bilateral legs. Appears to be biphasic flow from femorals down. Ordering Physician: Santiago Pelaez Referring Physician: Santiago Pelaez Performed By: Brynn Alexander RVT 10/18/17 1130 Date Santiago Pelaez MD CC: Santiago Pelaez MD; Aaron Tidwell MD Date Dictated: 10/18/17 1017 Date Transcribed: 10/18/17 1130 Oxyacetylene Cutter: Signed PROTIME W/INR Collected: 10/17/2017 Status: F Source: [facility] [place] 12:07 PM [facility] [place] REPOSITORY TYPE CODE TESTS RESULT OUT OF REFERENCE UNITS RANGE LAB L9200.1001 11.9-14.4 SEC High PROTIME ISTAT 24.4 Result Comment: Reference Range 11.9 - 14.4 LAB L9200.2000 Normal INR ISTAT 2.10 Result Comment: Critical Value > 3.5 Performed By: #### L9200.0000 #### [facility] Laboratory Point of Care [address] [place] [address] WOUND CTR HISTORY Observed: 10/10/2017 Status: F Source: [facility] PHYSICAL 2:38 PM [facility] [place] REPOSITORY [facility] Wound Healing Center [address] [place] [address] Wound Ctr History AND Physical 10/10/17 1426 MR#: [id number] Acct: [id number] Name: DI ZAPATA Rep #: [id number] : 1945 71 From: Saud Caraballo DPHoney PCP: Aaron Tidwell MD Status: REG RCR Y Location: (1) Venous stasis ulcer of left lower leg with edema of left lower leg Status: Chronic Current Visit: Yes Code(s): I83.892 - Varicose veins of left lower extremity with other complications; I83.028 - Varicose veins of left lower extremity with ulcer other part of lower leg; R60.9 - Edema, unspecified (2) Venous stasis ulcer of right lower leg with edema of right lower leg Status: Chronic Current Visit: Yes Code(s): I83.891 - Varicose veins of right lower extremity with other complications; I83.018 - Varicose veins of right lower extremity with ulcer other part of lower leg; R60.9 - Edema, unspecified (3) Localized edema Status: Acute Current Visit: Yes Code(s): R60.0 - Localized edema History of Present Illness Date of Service: 10/10/17 Chief Complaint: Wounds/ulcers of b/l lower legs History of Wound: Di is a 71 yo [address] patient of Dr. Delvalle that presents for evaluation and treatment of lower extremity ulcers that have been present since June. She states that she developed swelling in her legs in April and has not been able to get this under control. In June, she developed wounds/ulcers to her right leg and left leg as blisters developed and then opened. She has been seen by Dr. Pelaez, the ER and her PCP and has had several tests but the wounds/ulcers have not healed. She was also recently admitted at [facility] for this. She complains of severe pain in the wounds and her legs since July. She has indurated areas on her inner thighs and across her right abdomen that are erythematous and tender. She denies being evaluated for any rheumatologic causes of these areas but does state that when she was in the ER in April that they told her that her calcium level was high and they advised her to decrease her calcium and vitamin D. She has been applying telfa pads since going to the ED on Monday and using Adrián wraps for compression. She states tubigrips applied here previously were too tight. She tries to elevated her legs but has a lot of back pain due to her spinal stenosis. In addition, she gets short of breath if her legs are above her heart. She admits to sleeping and frequently sitting with her legs below her heart. Her Lasix was doubled since discharge from the hospital, and she believes her swelling has improved. She is not currently taking any antibiotics. She c/o severe pain. She sees Dr. Carbajal for pain management for her spinal stenosis but has not taken any medication or needed medication for her pain in the past. Epidurals have been effective for her spinal stenosis and sciatica in the past. Denies fever or chills. She requests pain medication today, but I did advise her that she needs to see her painter assistant for all pain medication. 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 calciphylaxis vs. erythema nodosum vs. dermatomyositis vs. panniculitis Mass of soft tissue of right lower extremity (Chronic) right inner upper thigh - ? calciphylaxis vs. erythema nodosum vs. dermatomyositis vs. panniculitis Surgical History: cataract, cholecystectomy, hysterectomy, - Allergies/Adverse Reactions: Allergies amlodipine besylate [From Norvasc] Allergy (Verified 10/07/17 09:31) Unknown Shortness of breath ceftriaxone Allergy (Verified 10/07/17 09:31) Rash doxazosin mesylate [From Cardura] Allergy (Verified 10/07/17 09:31) Unknown Pt doesn't remember doxycycline Allergy (Verified 10/07/17 09:31) Unknown Pt doesn't remember enalapril maleate [From Vasotec] Allergy (Verified 10/07/17 09:31) Rash enalaprilat dihydrate [From Vasotec] Allergy (Verified 10/07/17 09:31) Rash hydroxyzine HCl [From Vistaril] Allergy (Verified 10/07/17 09:31) Rash hydroxyzine pamoate [From Vistaril] Allergy (Verified 10/07/17 09:31) Rash meperidine HCl [From Demerol] Allergy (Verified 10/07/17 09:31) Rash Sulfa (Sulfonamide Antibiotics) Allergy (Verified 10/07/17 09:31) Hives sulfamethoxazole [From Bactrim] Allergy (Verified 10/07/17 09:31) Hives trimethoprim [From Bactrim] Allergy (Verified 10/07/17 09:31) Hives Home Medications: Ambulatory Orders Medication Instructions Recorded Metoprolol Tartrate [Lopressor 12.5 mg PO BID #90 tablet 11/06/15 - Family History Maternal No pertinent history Paternal No pertinent history Lives: Spouse/ Significant Other Smoking Status: Never smoker Tobacco Use: Non-smoker Review of Systems Constitutional: Denies: Chills, Fever, Weight Change Eyes: Denies: Pain, Vision Change HEENT: Denies: Difficulty Hearing, Difficulty Swallowing, Sinus Congestion Cardiovascular: Reports: Edema. Denies: Chest Pain, Palpitations Respiratory: Denies: Cough, Shortness of Breath Gastrointestinal: Denies: Diarrhea, Nausea, Vomiting Genitourinary: Denies: Dysuria, Hematuria Musculoskeletal: Reports: Back Pain, Leg Pain Skin: Reports: Wounds Neurological: Denies: Numbness Endocrine: Denies: Heat/ Cold Intolerance, Polydipsia, Polyuria Hematologic/ Lymphatic: Denies: Easy Bruising, Easy Bleeding, Hx of blood clot - Physical Exam Vital Signs Temp Pulse Resp BP 96.8 F L 98 16 107/63 10/10/17 12:56 10/10/17 12:56 10/10/17 12:56 10/10/17 12:56 General: Alert, Oriented x3, Cooperative, No apparent distress Abdomen: Soft Extremities: Diminished Peripheral Pulses, Edema Skin: Ulcer/ Wound - R and L calf with no erythema, no calor, no purulent drainage, no malodor, minimal TTP of ulcer or danni-ulcer area. No clinical signs of acute bacterial infection noted. See wound/edema assessment below. Wound Measurements and Assessment - Nurse 1 - General Ulcer Measurement Start: 09/29/17 11:42 Freq: Status: Active Protocol: Activity Type Activity Date Activity User E-Sign Co-Sign Detail Recorded Client Recorded Date Recorded By Document 10/10/17 12:56 [facility] [id number] 10/10/17 13:18 [facility] Wound Center Nurse 1 [Ulcer Assessment Protocol: WC.WD.LOC] #2 Left calf -Combined with other wound No - Nurse 2 - General Ulcer CM Notes Start: 09/29/17 11:42 Freq: Status: Active Protocol: Activity Type Activity Date Activity User E-Sign Co-Sign Detail Recorded Client Recorded Date Recorded By Document 10/10/17 13:41 [facility] [id number] 10/10/17 13:52 [facility] Wound Center Nurse 2 [Procedure/Treatment] #2 Left calf -Time 13:42 -Correct Patient Yes -Correct Side, Site, Position Yes Musculoskeletal: No Muscle Wasting Neurological: Neuro grossly intact, Motor Exam 5/5 strength throughout, Muscle tone normal, Coordination normal, Gait narrow based and stable Psych/Mental Status: Alert and oriented to time, place, person, mood and affect - wnl Debridement Note Post-Debridement Measurements/Treatment WC - Nurse 2 - General Ulcer CM Notes Start: 09/29/17 11:42 Freq: Status: Active Protocol: Activity Type Activity Date Activity User E-Sign Co-Sign Detail Recorded Client Recorded Date Recorded By Document 10/10/17 13:41 MW [id number] 10/10/17 13:52 [facility] Nurse 2 No debridement was completed today Assessment/Plan Active Problems (Last Updated 09/28/17 @ 08:55 by Romina Francisco) Localized edema (Acute) Venous stasis ulcer of left lower leg with edema of left lower leg (Chronic) Venous stasis ulcer of right lower leg with edema of right lower leg (Chronic) Assessment: venous ulcers of b/l LE due to venous insufficiency. ? calciphylaxis vs. erythema nodosum vs. dermatomyositis vs. panniculitis of abdomen and thighs b/l Plan: VAMP STRAP IRONER exam. Di's wounds were evaluated today. Her venous ulcers are very small in size and not very deep. Will dress her wounds with Aquacel Ag and adaptic and use tubigrips for light compression, increase from size E to size F, but use double layer. Labs ordered to evaluate for possible causes of her indurated areas on thighs and abdomen to r/o rheumatologic causes by Dr. Delvalle previously. Other possibile things to consider would be early calciphylaxis or other vasculitis. She has follow up with Dr. Pelaez end of September. Encouraged her to elevated legs as much as possible, avoid idle sitting or standing, increase activity, as well as weight management. Pt is unable to take PO NSAIDs due to current use of coumadin. She is to call if increased drainage or changes in wounds. She is to have all labs drawn prior to her next visit with Dr. Delvalle. We will obtain most recent echo result from [facility] as well as all vascular testing results (venous and arterial) from Dr. Pelaez's office prior to her next visit with Dr. Delvalle. F/U in [address] Delvalle. 10/10/17 2334 <Electronically signed by Saud Caraballo DPM> Date Saud Caraballo DPHoney CC: Signed PROTHROMBIN TIME W/INR Collected: 10/10/2017 Status: F Source: [place] 10:38 AM [facility] REPOSITORY Order Comment: DR CHILDERS ORDERED PT ONLY TYPE CODE TESTS RESULT OUT OF RANGE REFERENCE UNITS LAB L300.4150 11.7-14.9 SECONDS High PROTIME 19.8 LAB L300.4200 Normal INR 1.8 Performed By: #### L300.3900 #### [facility] [address] [place], [place], [id number] RENAL PROFILE Collected: 10/10/2017 Status: F Source: [place] 10:38 AM [facility] REPOSITORY Order Comment: DR CHILDERS ORDERED PT ONLY TYPE CODE TESTS RESULT OUT OF RANGE REFERENCE UNITS LAB L501.0100 70-110 mg/dL Normal GLU 109 LAB L501.1000 7-18 mg/dL High BUN 27 LAB L501.1100 0.55-1.02 mg/dL High 1.82 CREAT,SERUM Result Comment: The validity of the calculated GFR AND GFRAA in patients over 70 years has not been determined. Clinical correlation is essential. LAB L501.1110 >60 mL/min Low EST GFR 29 Result Comment: Non- GFR Calc LAB L501.1115 >60 mL/min Low EST GFR - AA 35 Result Comment: GFR Calc LAB L501.1300 10-20 RATIO Normal BUN/CRE 14.8 LAB L501.1800 3.4-5.0 g/dL Low ALB 3.2 Result Comment: Please note revised Albumin AND Globulin reference range effective 2017. LAB L501.2200 8.5-10.1 mg/dL Normal CA 9.0 LAB L501.2300 2.5-4.9 mg/dL Low PHOS 2.4 LAB L501.5300 136-145 mmol/L Normal NA 138 LAB L501.5600 3.5-5.1 mmol/L Low K 3.2 LAB L501.5900 98-107 mmol/L Normal CL 101 LAB L501.6100 21.0-32.0 mmol/L Normal CO2 26.0 Performed By: #### L500.3600 #### [facility] [address] [place], [address] VITAMIN D 1,25-DIHYDROXY Collected: 10/10/2017 Status: F Source: [place] 10:38 AM [facility] REPOSITORY Order Comment: DR CHILDERS ORDERED PT ONLY TYPE CODE TESTS RESULT OUT OF RANGE REFERENCE UNITS LAB L3300.0960 19.9-79.3 pg/mL Normal VITD 1,25 71.5 02982 Result Comment: Performed at: - [facility] [address] [id number] Vacation Sales Advisor: Jimmy Patino MD, Phone: [phone] Performed By: #### L3300.0960 #### [facility] (refer to report for specific site) refer to report for address and phone number EMERGENCY DEPARTMENT Observed: 10/07/2017 Status: F Source: [place] SUMMARY 5:53 PM [facility] REPOSITORY [facility] Medical Records Department [address] [place] [address] Emergency Department Summary 10/07/17 0956 MR#: [id number] Acct: [id number] Name: DI ZAPATA Rep #: [id number] : 1945 71 From: Yoli Sullivan MD PCP: Aaron Tidwell MD Status: DEP ER - ER Visit Summary Date of Service: 10/07/17 Chief Complaint: [] Blisters to the right lower leg, history of bilateral leg edema History of Present Illness: The patient is a 71 F [] the patient has a long history of lower extremity edema, A. fib CHF she was admitted to the hospital a few days ago discharged just 2 days ago, for all the above had extensive evaluation was found not to have cellulitis her antibiotics were discontinued, she was seen by vascular surgery told she did not have peripheral vascular disease did not require surgery she required wound care for the chronic edema the blistering and the ulcerations of her skin she has been using local wound care measures salves dressings etc. she woke today noticed a few blisters over the edematous areas of her right leg and she came in for evaluation she has no other complaints she would not have come in if she had not seen these few blisters, she is scheduled to see wound care in 2 days Physical Examination: [] No distress head neck chest unremarkable heart tones are slightly irregular to 80 the abdomen soft nontender she has ink brennan demarcating the areas of redness that she has had chronically the redness is not beyond these in marked ink brennan, to the right lower leg she has a few blisters measuring few millimeters, there is no drainage there is no warmth there is no signs of active cellulitis her lower extremity exam is otherwise really unremarkable, no she does have chronic ulcerations and pitting to both lower extremities left and right primarily to the medial posterior sides of the calves and this is chronic and unchanged there is no signs of an acute vascular arterial or venous insufficiency process she has no pain to her legs anywhere. Test Results: [] Emergency Department Course and Treatment: [] The patient denies any complaints at this time there is no signs of infection her temperature is 99 but she states she was seen just 2 days ago and extensive evaluation all of her medications antibiotics were stopped she has just a few blisters the area was not covered really with a nonadherent dressing this could be local skin irritation is no signs of an active process or new process at this time will provide her with a nonadherent dressing as she did not have anything to protect her skin, antibiotic ointment wound care instructions have her keep her legs elevated and otherwise follow-up with wound care center as instructed we discussed antibiotics, lab workup etc. she declined all that saying she did not want that as she just had that workup Treatment Plan: [] Disposition: [] Discharge stable home Impression: [] Chronic edema and skin changes to both lower extremities This note was generated with [employer] dictation software. It may contain incorrect words, spelling, and punctuation that were not noted in review of the chart prior to signing ED Disposition - Plan for ED Patient: Chief Complaint: Cellulitis Referrals: Aaron Tidwell MD [Primary Care Provider] - What to do if you have Problems For any increased pain, shortness of breath, bleeding, nausea or vomiting, chest pain, or any unexpected problems, contact your Primary Care Provider. Call [facility] ([phone]) or report to the closest Emergency Room. Call 911 if necessary. 10/07/17 1412 <Electronically signed by Yoli Sullivan MD> Date Yoli Sullivan MD Cosigner Signature (If Indicated): Date CC: Aaron Tidwlel MD DISCHARGE INSTRUCTION Observed: 10/07/2017 Status: F Source: [place] 10:03 [facility] REPOSITORY [facility] Medical Records Department [address] [place] [address] Discharge Instruction 10/07/17 1002 MR#: [id number] Acct: [id number] Name: DI ZAPATA Rep #: [id number] : 1945 71 From: Yoli Sullivan MD PCP: Aaron Tidwell MD Status: PRE ER ED Disposition - Plan for ED Patient: Chief Complaint: Cellulitis Diagnosis: Venous stasis ulcer of right lower leg with edema of right lower leg Instructions: Chronic Venous Insufficiency: Treating Ulcers Referrals: Aaron Tidwell MD [Primary Care Provider] - What to do if you have Problems For any increased pain, shortness of breath, bleeding, nausea or vomiting, chest pain, or any unexpected problems, contact your Primary Care Provider. Call [facility] ([phone]) or report to the closest Emergency Room. Call 911 if necessary. 10/07/17 1003 <Electronically signed by Yoli Sullivan MD> Date Yoli Whelan Signature (If Indicated): Date CC: Aaron Tidwell MD DISCHARGE SUMMARY Observed: 10/04/2017 Status: F Source: [place] 1:22 PM [facility] REPOSITORY [facility] Medical Records Department [address] [place] [address] Discharge Summary 10/04/17 1316 MR#: [id number] Acct: [id number] Name: DI ZAPATA Rep #: [id number] : 1945 71 From: Terence Bonilla DO PCP: Aaron Tidwell MD Status: ADM IN Y [place] [facility] [id number] ADDENDUM by Terence Bonilla DO on 10/04/17 at 1322 Code Visit Patient seen and examined today. Patient is up in the chair. Patient was seen walking with physical therapy and had a normal gait. Patient is no respiratory distress. No conversational dyspnea. 10/04/17 1322 <Electronically signed by Terence Bonilla DO> Date Terence Bonilla DO cc: Terence Bonilla DO; Aaron Tidwell MD * Signed Discharge Date and Diagnosis - Problem List Patient Problems: Active and Suspected Problems (Last Updated 09/28/17 @ 08:55 by Romina Francisco) Heart failure with 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 (Acute) Date of Admission: 09/29/17 Date of Discharge: 10/04/17 - Primary Discharge Diagnosis Active and Suspected Problems (Last Updated 09/28/17 @ 08:55 by Romina Francisco) Heart failure with 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 (Acute) Cellulitis (Acute) - Secondary Discharge Diagnosis Chronic Problems (Last Updated 09/28/17 @ 08:55 by Romina Francisco) [facility] current use of anticoagulant (Chronic) Chronic atrial fibrillation (Chronic) Status post placement of implantable loop recorder (Chronic) History of maze procedure (Chronic) Other secondary pulmonary hypertension (Chronic) Chronic diastolic (congestive) heart failure (Chronic) Symptomatic anemia (Chronic) Hypertension (Chronic) Type 2 diabetes mellitus (Chronic) Lung nodule (Chronic) Chronic kidney disease, stage 3 (Chronic) 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 calciphylaxis vs. erythema nodosum vs. dermatomyositis vs. panniculitis Mass of soft tissue of right lower extremity (Chronic) right inner upper thigh - ? calciphylaxis vs. erythema nodosum vs. dermatomyositis vs. panniculitis Hospital Course and Treatment Consultations 09/30/17 23:55 Consult: Onc/Wound/deoiling machine operator Routine Comment: Reason for Consult:: JAIRO LOWER EXT STASIS ULCERS Operations: None Procedures: None Summary of Care Provided: The patient is a 71 year old F patient admitted with pain and redness of her lower extremities. Concern was for cellulitis. By time I saw the patient discontinue the antibiotics and monitor the patient. Patient had edema of her lower extremities they were red blood cells bilateral and not concerning for cellulitis from my standpoint. Patient was monitored for 2 days afterwards and had no worsening of her erythema of her lower extremities and actually improved. Seems to be more consistent with venous stasis dermatitis with the redness. Patient's has been digitally in bed something that really help a lot of the redness overall. I discussed this with the patient. Patient's Lasix will be increased from 20 mg every other day to 40 mg daily and then additional dose as needed for weight gain 2 pounds in 1 day or 3 pounds in 1 week. Patient will be discharged home. Echo in the past showed an ejection fraction of 80%. Patient was on metformin as outpatient would discontinue that in light of the patient's heart failure. [] Discharge Diet: 2000 Calorie Control Diet, 6 Cup Fluid Restriction, 2000 mg Sodium Diet Discharge Activity: Return to Normal Activity Return to work on:: 10/09/17 Call your doctor if your incision/area has: Continuous Slow Oozing, Sudden Increased Bleeding, Increased Pain/ Swelling, Increased Redness Home Medications: Medications to take at Discharge Metoprolol Tartrate [Lopressor (beta alok)] 12.5 mg PO BID #90 tablet 11/06/15 Aspirin [Adult Low Dose Aspirin EC] 81 mg PO DAILY 03/03/17 Oxycodone [Oxyir] 5 mg PO Q4H PRN PRN 09/26/17 warfarin 4 mg tablet 4 mg PO MOWEFR 09/28/17 Gabapentin [Neurontin] 100 mg PO 4X/DAY 09/29/17 Warfarin [Coumadin] 2 mg PO SUTUTHSA 09/29/17 Fluoxetine [Prozac] 20 mg PO DAILY 09/30/17 Furosemide [Lasix] 40 mg PO DAILY #60 tab 10/04/17 Following Prescrptions Were Given to Patient: Furosemide [Lasix] 40 mg PO DAILY #60 tab Primary Care Physician: Aaron Tidwell MD [Primary Care Provider] - Within 1 Week Disposition: Home Minutes spent on discharge:: 32 Patient Condition:: Good Meaningful Use Info Meaningful Use Diagnoses (Choose all that apply): CHF - CHF ADRIÁN/ARB ordered at discharge?: No Reason ADRIÁN/ARB not ordered?: Worsening renal disease Documented LVEF (%): 50 Code Visit Inpatient E AND M: [id number] Disch Hosp 10/04/17 1320 <Electronically signed by Terence Bonilla DO> Date Terence Bonilla DO Cosigner Signature (if applicable): Date CC: Terence Bonilla DO; Aaron Tidwell MD Signed DISCHARGE INSTRUCTION Observed: 10/04/2017 Status: F Source: [place] 1:15 PM [facility] REPOSITORY [facility] Medical Records Department [address] [place] [address] Instructions for Home/Discharge Instructions 10/04/17 1313 MR#: [id number] Acct: [id number] Name: DI ZAPATA Rep #: [id number] : 1945 71 From: Terence Bonilla DO PCP: Aaron Tidwell MD Status: ADM IN - Discharge Diagnoses Current Active Problems: Current Active and Chronic Problems (Last Updated 09/28/17 @ 08:55 by Romina Francisco) Cellulitis (Acute) You will use the following diet at home:: Fluid restricted (specify 2000 mls, 1500 mls) - 1500 cc/day Your food should be the consistency of: Regular Your liquids should be the consistency of: Regular/Thin Discharge Activity: Return to Normal Activity Return to work on:: 10/09/17 Call your doctor if your incision/area has: Continuous Slow Oozing, Sudden Increased Bleeding, Increased Pain/ Swelling, Increased Redness Additional Instructions: Daily weights. Allergies/Adverse Reactions: Allergies amlodipine besylate [From Norvasc] Allergy (Verified 09/29/17 15:55) Unknown Shortness of breath ceftriaxone Allergy (Verified 09/29/17 15:55) Rash doxazosin mesylate [From Cardura] Allergy (Verified 09/29/17 15:55) Unknown Pt doesn't remember doxycycline Allergy (Verified 09/29/17 15:55) Unknown Pt doesn't remember enalapril maleate [From Vasotec] Allergy (Verified 09/29/17 15:55) Rash enalaprilat dihydrate [From Vasotec] Allergy (Verified 09/29/17 15:55) Rash hydroxyzine HCl [From Vistaril] Allergy (Verified 09/29/17 15:55) Rash hydroxyzine pamoate [From Vistaril] Allergy (Verified 09/29/17 15:55) Rash meperidine HCl [From Demerol] Allergy (Verified 09/29/17 15:55) Rash Sulfa (Sulfonamide Antibiotics) Allergy (Verified 09/29/17 15:55) Hives sulfamethoxazole [From Bactrim] Allergy (Verified 09/29/17 15:55) Hives trimethoprim [From Bactrim] Allergy (Verified 09/29/17 15:55) Hives Medications to take at Discharge Metoprolol Tartrate [Lopressor (beta alok)] 12.5 mg PO BID #90 tablet 11/06/15 Aspirin [Adult Low Dose Aspirin EC] 81 mg PO DAILY 03/03/17 Oxycodone [Oxyir] 5 mg PO Q4H PRN PRN 09/26/17 warfarin 4 mg tablet 4 mg PO MOWEFR 09/28/17 Gabapentin [Neurontin] 100 mg PO 4X/DAY 09/29/17 Warfarin [Coumadin] 2 mg PO SUTUTHSA 09/29/17 Fluoxetine [Prozac] 20 mg PO DAILY 09/30/17 Furosemide [Lasix] 40 mg PO DAILY #60 tab 10/04/17 The following prescriptions were given: Furosemide [Lasix] 40 mg PO DAILY #60 tab Primary Care Physician: Aaron Tidwell MD [Primary Care Provider] - Within 1 Week Proposed Discharge Date: 10/04/17 10/04/17 1315 <Electronically signed by Terence Bonilla DO> Date Terence Bonilla DO CC: Aaron Tidwell MD BEDSIDE GLUCOSE Collected: 10/04/2017 Status: F Source: [place] 11:15 AM [facility] REPOSITORY TYPE CODE TESTS RESULT OUT OF REFERENCE UNITS RANGE LAB L501.080 70-110 mg/dL High BEDSIDE GLU 148 Result Comment: MANAGEMENT OF PATIENT CARE PER NURSING PROTOCOL Performed By: #### L501.080 #### [facility] Point of Care [address] [place], [place] [address] BEDSIDE GLUCOSE Collected: 10/04/2017 Status: F Source: [place] 6:46 AM [facility] REPOSITORY TYPE CODE TESTS RESULT OUT OF RANGE REFERENCE UNITS LAB L501.080 70-110 mg/dL Normal BEDSIDE GLU 95 Result Comment: MANAGEMENT OF PATIENT CARE PER NURSING PROTOCOL Performed By: #### L501.080 #### [facility] Point of Care [address] [place] [address] BASIC METABOLIC Collected: 10/04/2017 Status: F Source: [place] PROFILE (BMP) 5:40 AM [facility] REPOSITORY TYPE CODE TESTS RESULT OUT OF RANGE REFERENCE UNITS LAB L501.0100 70-110 mg/dL Normal GLU 102 LAB L501.1000 7-18 mg/dL High BUN 22 LAB L501.1100 0.55-1.02 mg/dL High 1.54 CREAT,SERUM Result Comment: The validity of the calculated GFR AND GFRAA in patients over 70 years has not been determined. Clinical correlation is essential. LAB L501.1110 >60 mL/min Low EST GFR 35 Result Comment: Non- GFR Calc LAB L501.1115 >60 mL/min Low EST GFR - AA 43 Result Comment: GFR Calc LAB L501.1255 ml/min Normal Estimated CRCL 28.12 LAB L501.1300 10-20 RATIO Normal BUN/CRE 14.3 LAB L501.2200 8.5-10 mg/dL Normal .1 CA 9.5 LAB L501.5300 136-14 mmol/L Low 5 NA 135 LAB L501.5600 3.5-5. mmol/L Low 1 K 3.0 LAB L501.5900 98-107 mmol/L Normal CL 98 LAB L501.6100 21.0-3 mmol/L Normal 2.0 CO2 26.0 LAB L501.6200 5-15 Normal GAP 11 Performed By: #### L500.2500 #### [facility] [address] [place], [address] PROTHROMBIN TIME W/INR Collected: 10/04/2017 Status: F Source: [place] 5:40 AM [facility] REPOSITORY TYPE CODE TESTS RESULT OUT OF RANGE REFERENCE UNITS LAB L300.4150 11.7-14.9 SECONDS High PROTIME 20.2 LAB L300.4200 Normal INR 1.8 Performed By: #### L300.3900 #### [facility] [address] [place], [address] BEDSIDE GLUCOSE Collected: 10/03/2017 Status: F Source: [place] 9:54 PM [facility] REPOSITORY TYPE CODE TESTS RESULT OUT OF RANGE REFERENCE UNITS LAB L501.080 70-110 mg/dL Normal BEDSIDE GLU 98 Result Comment: MANAGEMENT OF PATIENT CARE PER NURSING PROTOCOL Performed By: #### L501.080 #### [facility] Point of Care [address] [place] [address] BEDSIDE GLUCOSE Collected: 10/03/2017 Status: F Source: [place] 5:16 PM [facility] REPOSITORY TYPE CODE TESTS RESULT OUT OF REFERENCE UNITS RANGE LAB L501.080 70-110 mg/dL High BEDSIDE GLU 133 Result Comment: MANAGEMENT OF PATIENT CARE PER NURSING PROTOCOL Performed By: #### L501.080 #### [facility] Point of Care [address] [place] [address] BEDSIDE GLUCOSE Collected: 10/03/2017 Status: F Source: [place] 11:09 AM [facility] REPOSITORY TYPE CODE TESTS RESULT OUT OF REFERENCE UNITS RANGE LAB L501.080 70-110 mg/dL High BEDSIDE GLU 151 Result Comment: MANAGEMENT OF PATIENT CARE PER NURSING PROTOCOL Performed By: #### L501.080 #### [facility] Point of Care [address] [place] [address] BEDSIDE GLUCOSE Collected: 10/03/2017 Status: F Source: [place] 6:36 AM [facility] REPOSITORY TYPE CODE TESTS RESULT OUT OF RANGE REFERENCE UNITS LAB L501.080 70-110 mg/dL Normal BEDSIDE GLU 105 Result Comment: MANAGEMENT OF PATIENT CARE PER NURSING PROTOCOL Performed By: #### L501.080 #### [facility] Point of Care [address] [facility] [place] [address] CBC W/DIFF, AUTOMATED Collected: 10/03/2017 Status: F Source: [place] 6:30 AM [facility] REPOSITORY TYPE CODE TESTS RESULT OUT OF RANGE REFERENCE UNITS LAB L100.1000 4.4-11.0 K/mm3 Normal WBC 6.4 LAB L100.1200 4.2-5.4 M/mm3 Low RBC 4.13 LAB L100.1300 12.0-15.0 g/dl Low HGB 9.1 LAB L100.1400 37-47 % Low HCT 29.2 LAB L100.1500 81-99 fL Low MCV 70.7 LAB L100.1600 27.0-32.0 pg Low MCH 22.0 LAB L100.1700 32-36 g/gl Low MCHC 31.2 LAB L100.1810 11.6-14.6 % High RDW CV 19.8 LAB L100.1820 35.1-43.9 fl High RDW SD 48.2 LAB L100.1900 150-450 K/mm3 Normal PLT 197 LAB L100.2000 6.2-12.0 fl Normal MPV 10.8 LAB L100.2100 47-70 % Normal NEUT% 55.1 LAB L100.2200 19-41 % Normal LY% 25.8 LAB L100.2300 0-10 % High MONO% 16.7 LAB L100.2400 0-5 % Normal EO% 1.7 LAB L100.2500 0-1 % Normal BASO% 0.5 LAB L100.2550 0.0-0.9 % Normal IM GRAN % 0.200 Result Comment: IG% - Immature Granulocytes (promyelocytes, myelocytes and metamyelocytes) > 1% indicates that a LEFT SHIFT is Present. LAB L100.2620 2.0-7.7 X10 3/uL Normal Absolute Neut 3.5 LAB L100.2720 0.83-4.51 X10 3/ul Normal Absolute Lymph 1.65 Performed By: #### L100.0100 #### [facility] [address] [place], [address] PROTHROMBIN TIME W/INR Collected: 10/03/2017 Status: F Source: [place] 6:30 AM [facility] REPOSITORY TYPE CODE TESTS RESULT OUT OF RANGE REFERENCE UNITS LAB L300.4150 11.7-14.9 SECONDS High PROTIME 20.6 LAB L300.4200 Normal INR 1.9 Performed By: #### L300.3900 #### [facility] [address] [place], [address] BASIC METABOLIC Collected: 10/03/2017 Status: F Source: [place] PROFILE (BMP) 6:30 AM [facility] REPOSITORY TYPE CODE TESTS RESULT OUT OF RANGE REFERENCE UNITS LAB L501.0100 70-110 mg/dL Normal GLU 93 LAB L501.1000 7-18 mg/dL High BUN 21 LAB L501.1100 0.55-1.02 mg/dL High 1.70 CREAT,SERUM Result Comment: The validity of the calculated GFR AND GFRAA in patients over 70 years has not been determined. Clinical correlation is essential. LAB L501.1110 >60 mL/min Low EST GFR 32 Result Comment: Non- GFR Calc LAB L501.1115 >60 mL/min Low EST GFR - AA 38 Result Comment: GFR Calc LAB L501.1255 ml/min Normal Estimated CRCL 25.47 LAB L501.1300 10-20 RATIO Normal BUN/CRE 12.4 LAB L501.2200 8.5-10 mg/dL Normal .1 CA 9.5 LAB L501.5300 136-14 mmol/L Normal 5 NA 136 LAB L501.5600 3.5-5. mmol/L Low 1 K 3.1 LAB L501.5900 98-107 mmol/L Normal CL 102 LAB L501.6100 21.0-3 mmol/L Normal 2.0 CO2 23.0 LAB L501.6200 5-15 Normal GAP 11 Performed By: #### L500.2500 #### [facility] [address] [place], [address] BEDSIDE GLUCOSE Collected: 10/02/2017 Status: F Source: [place] 10:03 PM [facility] REPOSITORY TYPE CODE TESTS RESULT OUT OF REFERENCE UNITS RANGE LAB L501.080 70-110 mg/dL High BEDSIDE GLU 112 Result Comment: MANAGEMENT OF PATIENT CARE PER NURSING PROTOCOL Performed By: #### L501.080 #### [facility] Point of Care [address] [place] [address] BEDSIDE GLUCOSE Collected: 10/02/2017 Status: F Source: [place] 4:47 PM [facility] REPOSITORY TYPE CODE TESTS RESULT OUT OF REFERENCE UNITS RANGE LAB L501.080 70-110 mg/dL High BEDSIDE GLU 115 Result Comment: MANAGEMENT OF PATIENT CARE PER NURSING PROTOCOL Performed By: #### L501.080 #### [facility] Point of Care [address] [place] [address] BEDSIDE GLUCOSE Collected: 10/02/2017 Status: F Source: [place] 11:31 AM [facility] REPOSITORY TYPE CODE TESTS RESULT OUT OF REFERENCE UNITS RANGE LAB L501.080 70-110 mg/dL High BEDSIDE GLU 138 Result Comment: MANAGEMENT OF PATIENT CARE PER NURSING PROTOCOL Performed By: #### L501.080 #### [facility] Point of Care [address] [place] [address] BEDSIDE GLUCOSE Collected: 10/02/2017 Status: F Source: [place] 6:43 AM [facility] REPOSITORY TYPE CODE TESTS RESULT OUT OF RANGE REFERENCE UNITS LAB L501.080 70-110 mg/dL Normal BEDSIDE GLU 102 Result Comment: MANAGEMENT OF PATIENT CARE PER NURSING PROTOCOL Performed By: #### L501.080 #### [facility] Point of Care [address] [place] [address] BEDSIDE GLUCOSE Collected: 10/01/2017 Status: F Source: [place] 10:16 PM [facility] REPOSITORY TYPE CODE TESTS RESULT OUT OF REFERENCE UNITS RANGE LAB L501.080 70-110 mg/dL High BEDSIDE GLU 116 Result Comment: MANAGEMENT OF PATIENT CARE PER NURSING PROTOCOL Performed By: #### L501.080 #### [facility] Point of Care [address] [place] [address] BEDSIDE GLUCOSE Collected: 10/01/2017 Status: F Source: [place] 4:00 PM [facility] REPOSITORY TYPE CODE TESTS RESULT OUT OF REFERENCE UNITS RANGE LAB L501.080 70-110 mg/dL High BEDSIDE GLU 118 Result Comment: MANAGEMENT OF PATIENT CARE PER NURSING PROTOCOL Performed By: #### L501.080 #### [facility] Point of Care [address] [place] [address] BEDSIDE GLUCOSE Collected: 10/01/2017 Status: F Source: [place] 10:51 AM [facility] REPOSITORY TYPE CODE TESTS RESULT OUT OF REFERENCE UNITS RANGE LAB L501.080 70-110 mg/dL High BEDSIDE GLU 119 Result Comment: MANAGEMENT OF PATIENT CARE PER NURSING PROTOCOL Performed By: #### L501.080 #### [facility] Point of Care [address] [place] [address] CBC W/DIFF, AUTOMATED Collected: 10/01/2017 Status: F Source: [place] 9:50 AM [facility] REPOSITORY TYPE CODE TESTS RESULT OUT OF RANGE REFERENCE UNITS LAB L100.1000 4.4-11.0 K/mm3 Normal WBC 6.3 LAB L100.1200 4.2-5.4 M/mm3 Normal RBC 4.26 LAB L100.1300 12.0-15.0 g/dl Low HGB 9.3 LAB L100.1400 37-47 % Low HCT 30.7 LAB L100.1500 81-99 fL Low MCV 72.1 LAB L100.1600 27.0-32.0 pg Low MCH 21.8 LAB L100.1700 32-36 g/gl Low MCHC 30.3 LAB L100.1810 11.6-14.6 % High RDW CV 19.9 LAB L100.1820 35.1-43.9 fl High RDW SD 50.4 LAB L100.1900 150-450 K/mm3 Normal PLT 197 LAB L100.2000 6.2-12.0 fl Normal MPV 10.5 LAB L100.2100 47-70 % Normal NEUT% 55.8 LAB L100.2200 19-41 % Normal LY% 24.6 LAB L100.2300 0-10 % High MONO% 17.4 LAB L100.2400 0-5 % Normal EO% 1.7 LAB L100.2500 0-1 % Normal BASO% 0.3 LAB L100.2550 0.0-0.9 % Normal IM GRAN % 0.200 Result Comment: IG% - Immature Granulocytes (promyelocytes, myelocytes and metamyelocytes) > 1% indicates that a LEFT SHIFT is Present. LAB L100.2620 2.0-7.7 X10 3/uL Absolute Neut Normal 3.5 LAB L100.2720 0.83-4.51 X10 3/ul Absolute Lymph Normal 1.56 LAB L100.4500 SMEAR COMMENT Normal SCANNED LAB L100.7300 ANISO Normal 3+ LAB L100.7400 POIK Normal 1+ LAB L100.7500 POLYCHROMASIA Normal 1+ LAB L100.7600 HYPOCHROMASIA Normal 1+ LAB L100.7700 MICROCYTES Normal 2+ Performed By: #### L100.0100 #### [facility] [address] [place], [place], [address] PROTHROMBIN TIME W/INR Collected: 10/01/2017 Status: F Source: [place] 9:50 AM [facility] REPOSITORY TYPE CODE TESTS RESULT OUT OF RANGE REFERENCE UNITS LAB L300.4150 11.7-14.9 SECONDS High PROTIME 29.4 LAB L300.4200 Normal INR 2.9 Performed By: #### L300.3900 #### [facility] [address] [place], [place], [address] BASIC METABOLIC Collected: 10/01/2017 Status: F Source: [place] PROFILE (BMP) 9:50 AM [facility] REPOSITORY TYPE CODE TESTS RESULT OUT OF RANGE REFERENCE UNITS LAB L501.0100 70-110 mg/dL High GLU 137 Result Comment: Fasting Glucose result greater than or equal to 126 mg/dL suggests DIABETES MELLITUS per A.D.A. criteria. LAB L501.1000 7-18 mg/dL Normal BUN 17 LAB L501.1100 0.55-1.02 mg/dL High CREAT,SERUM 1.76 Result Comment: The validity of the calculated GFR AND GFRAA in patients over 70 years has not been determined. Clinical correlation is essential. LAB L501.1110 >60 mL/min Low EST GFR 30 Result Comment: Non- GFR Calc LAB L501.1115 >60 mL/min Low EST GFR - AA 37 Result Comment: GFR Calc LAB L501.1255 ml/min Normal Estimated CRCL 24.60 LAB L501.1300 10-20 RATIO Low BUN/CRE 9.7 LAB L501.2200 8.5-10 mg/dL Normal .1 CA 9.2 LAB L501.5300 136-14 mmol/L Normal 5 NA 140 LAB L501.5600 3.5-5. mmol/L Normal 1 K 3.8 LAB L501.5900 98-107 mmol/L High CL 109 LAB L501.6100 21.0-3 mmol/L Normal 2.0 CO2 25.0 LAB L501.6200 5-15 Normal GAP 6 Performed By: #### L500.2500 #### [facility] [address] [place], [place], [address] BEDSIDE GLUCOSE Collected: 10/01/2017 Status: F Source: [place] 6:14 AM [facility] REPOSITORY TYPE CODE TESTS RESULT OUT OF REFERENCE UNITS RANGE LAB L501.080 70-110 mg/dL High BEDSIDE GLU 131 Result Comment: MANAGEMENT OF PATIENT CARE PER NURSING PROTOCOL Performed By: #### L501.080 #### [facility] Point of Care [address] [place], [place] [address] BEDSIDE GLUCOSE Collected: 09/30/2017 Status: F Source: [place] 11:04 PM [facility] REPOSITORY TYPE CODE TESTS RESULT OUT OF REFERENCE UNITS RANGE LAB L501.080 70-110 mg/dL High BEDSIDE GLU 137 Result Comment: MANAGEMENT OF PATIENT CARE PER NURSING PROTOCOL Performed By: #### L501.080 #### [facility] Point of Care [address] [place] [address] BEDSIDE GLUCOSE Collected: 09/30/2017 Status: F Source: [place] 5:48 PM [facility] REPOSITORY TYPE CODE TESTS RESULT OUT OF REFERENCE UNITS RANGE LAB L501.080 70-110 mg/dL High BEDSIDE GLU 114 Result Comment: MANAGEMENT OF PATIENT CARE PER NURSING PROTOCOL Performed By: #### L501.080 #### [facility] Point of Care [address] [place] [address] BEDSIDE GLUCOSE Collected: 09/30/2017 Status: F Source: [place] 12:17 PM [facility] REPOSITORY TYPE CODE TESTS RESULT OUT OF REFERENCE UNITS RANGE LAB L501.080 70-110 mg/dL High BEDSIDE GLU 161 Result Comment: MANAGEMENT OF PATIENT CARE PER NURSING PROTOCOL Performed By: #### L501.080 #### [facility] Point of Care [address] [place] [address] COMPREHENSIVE METABOLIC Collected: 09/30/2017 Status: F Source: [place] PROFIL 7:40 AM [facility] REPOSITORY TYPE CODE TESTS RESULT OUT OF RANGE REFERENCE UNITS LAB L501.0100 70-110 mg/dL Normal GLU 93 LAB L501.1000 7-18 mg/dL Normal BUN 18 LAB L501.1100 0.55-1.02 mg/dL High 1.45 CREAT,SERUM Result Comment: The validity of the calculated GFR AND GFRAA in patients over 70 years has not been determined. Clinical correlation is essential. LAB L501.1110 >60 mL/min Low EST GFR 38 Result Comment: Non- GFR Calc LAB L501.1115 >60 mL/min Low EST GFR - AA 46 Result Comment: GFR Calc LAB L501.1255 ml/min Normal Estimated CRCL 29.86 LAB L501.1300 10-20 RATIO Normal BUN/CRE 12.4 LAB L501.1500 6.4-8. g/dL Normal 2 T PROT 6.9 LAB L501.1800 3.4-5. g/dL Low 0 ALB 2.8 Result Comment: Please note revised Albumin AND Globulin reference range effective 2017. LAB L501.1950 2.2-4.2 g/dL Normal GLOB 4.1 LAB L501.2000 0.9-2.4 RATIO Low A/G 0.7 LAB L501.2200 8.5-10.1 mg/dL Normal CA 9.1 LAB L501.4100 15-37 U/L Normal AST 24 LAB L501.4305 45-117 U/L Normal ALK P 63 LAB L501.4405 12-78 U/L Normal ALT 17 LAB L501.4600 0.20-1.00 mg/dL Normal T BILI 0.80 LAB L501.5300 136-145 mmol/L Normal NA 141 LAB L501.5600 3.5-5.1 mmol/L Low K 3.2 LAB L501.5900 98-107 mmol/L High CL 108 LAB L501.6100 21.0-32.0 mmol/L Normal CO2 24.0 LAB L501.6200 5-15 Normal GAP 9 Performed By: #### L500.4050 #### [facility] [place], [address] CBC-COMPLETE BLOOD CNT Collected: 09/30/2017 Status: F Source: [place] NO DIFF 7:40 AM [facility] REPOSITORY TYPE CODE TESTS RESULT OUT OF RANGE REFERENCE UNITS LAB L100.1000 4.4-11.0 K/mm3 Normal WBC 5.4 LAB L100.1200 4.2-5.4 M/mm3 Low RBC 3.97 LAB L100.1300 12.0-15.0 g/dl Low HGB 8.6 LAB L100.1400 37-47 % Low HCT 28.0 LAB L100.1500 81-99 fL Low MCV 70.5 LAB L100.1600 27.0-32.0 pg Low MCH 21.7 LAB L100.1700 32-36 g/gl Low MCHC 30.7 LAB L100.1810 11.6-14.6 % High RDW CV 19.0 LAB L100.1820 35.1-43.9 fl High RDW SD 47.7 LAB L100.1900 150-450 K/mm3 Normal PLT 207 LAB L100.2000 6.2-12.0 fl Normal MPV 10.6 Performed By: #### L100.0500, L100.4500 #### [facility] [address] [place], [address] DIFFERENTIAL COMMENT Collected: 09/30/2017 Status: F Source: [place] 7:40 AM [facility] REPOSITORY TYPE CODE TESTS RESULT OUT OF RANGE REFERENCE UNITS LAB L100.4500 Normal SMEAR COMMENT SCANNED Result Comment: 3+ ANISOCYTOSIS, 3+ MICROCYTOSIS, 2+ HYPOCHROMASIA 1+ POLYCHROMASIA Performed By: #### L100.0500, L100.4500 #### [facility] [address] [place], [address] PROTHROMBIN TIME W/INR Collected: 09/30/2017 Status: F Source: [place] 7:40 AM [facility] REPOSITORY TYPE CODE TESTS RESULT OUT OF RANGE REFERENCE UNITS LAB L300.4150 11.7-14.9 SECONDS High PROTIME 30.4 LAB L300.4200 Normal INR 3.1 Performed By: #### L300.3900 #### [facility] [place], [address] HISTORY AND PHYSICAL Observed: 09/30/2017 Status: F Source: [place] EXAM 5:34 AM [facility] Medical Records Department [address] [place] [id number] History and Physical 09/29/172114 MR#: [id number] Acct: [id number] Name: DI ZAPATA Rep #: [id number] : 1945 71 From: Harley Livingston MD PCP: Aaron Tidwell MD Status: ADM IN Y Location: MS2 [id number] Problem List (1) Cellulitis Status: Acute (2) Arthralgia Status: Chronic Qualifiers: Joint pain location: unspecified Qualified Code(s): M25.50 - Pain in unspecified joint (3) Chronic diastolic (congestive) heart failure Status: Chronic (4) History of maze procedure Status: Chronic (5) Hypertension Status: Chronic (6) 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 She has been having swelling and pain in both her legs since April. She has been evaluated by wound care and vascular. She has severe lower extremity pain. Pain is persistent. Nothing made it better or worse. Pain lasts for hours and is episodic. Pain is not associated with any other symptoms. She goes to wound clinics for management of her wound. She was advise to go to the ED for further workup. 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 calciphylaxis vs. erythema nodosum vs. dermatomyositis vs. panniculitis Mass of soft tissue of right lower extremity (Chronic) right inner upper thigh - ? calciphylaxis vs. erythema nodosum vs. dermatomyositis vs. panniculitis Allergies amlodipine besylate [From Norvasc] Allergy (Verified 09/29/17 15:55) Unknown Shortness of breath ceftriaxone Allergy (Verified 09/29/17 15:55) Rash doxazosin mesylate [From Cardura] Allergy (Verified 09/29/17 15:55) Unknown Pt doesn't remember doxycycline Allergy (Verified 09/29/17 15:55) Unknown Pt doesn't remember enalapril maleate [From Vasotec] Allergy (Verified 09/29/17 15:55) Rash enalaprilat dihydrate [From Vasotec] Allergy (Verified 09/29/17 15:55) Rash hydroxyzine HCl [From Vistaril] Allergy (Verified 09/29/17 15:55) Rash hydroxyzine pamoate [From Vistaril] Allergy (Verified 09/29/17 15:55) Rash meperidine HCl [From Demerol] Allergy (Verified 09/29/17 15:55) Rash Sulfa (Sulfonamide Antibiotics) Allergy (Verified 09/29/17 15:55) Hives sulfamethoxazole [From Bactrim] Allergy (Verified 09/29/17 15:55) Hives trimethoprim [From Bactrim] Allergy (Verified 09/29/17 15:55) Hives Home Medications: Ambulatory Orders Medication Instructions Recorded Metformin HCl [Glucophage] 500 mg PO DAILY 09/09/15 Metoprolol Tartrate [Lopressor 12.5 mg PO BID #90 tablet 11/06/15 Surgical History: cataract, cholecystectomy, hysterectomy, - Smoking Status: Never smoker - *Family History Maternal History Items: No pertinent history Paternal History Items: No pertinent history Review of Systems Constitutional: Denies: Chills, Fever, Weight Change HEENT: Reports: Nasal Congestion. Denies: Head Aches, Sinus Congestion, Sinus Drainage Cardiovascular: Denies: Chest Pain, Palpitations Respiratory: Denies: Cough, Shortness of breath at rest, Sputum production Gastrointestinal: Denies: Abdominal Pain, Nausea, Vomiting Genitourinary: Denies: Dysuria Musculoskeletal: Reports: Joint swelling, Joint Tenderness, Leg Pain, Muscle pain - Swelling with poorly demarcated borders noted.. Denies: Joint Pain Skin: Denies: Rash, Wounds Neurological: Denies: Numbness, Tingling, Focal weakness Psychiatric: Denies: Anxiety, Depression, Homicidal Ideations, Suicidal Ideations Hematologic/ Lymphatic: Denies: Easy Bruising, Easy Bleeding VTE Information - Inpt Only VTE Present on Admission: No VTE Mechan Device Prophylaxis: SCD's VTE Pharm Prophylaxis ordered?: Yes Patient Problems: Active and Suspected Problems (Last Updated 09/28/17 @ 08:55 by Romina Francisco) Cellulitis (Acute) - Physical Exam General: Alert, Oriented x3, Cooperative HEENT: Atraumatic, PERRLA, EOMI, Normocephalic Neck: Supple, No JVD, Negative Carotid Bruits Lungs: Clear to auscultation, Normal air movement Cardiovascular: Regular rate, No murmurs Abdomen: Bowel Sounds Present, Soft, Non Tender Extremities: No edema, Capillary Refill Less than 3 Seconds, - - 2+ edema Skin: Ulcer/ Wound - Bilateral lower extremity wound Musculoskeletal: No Tenderness to Palpation of Joints or Extremities Neurological: Cranial nerves II-XII grossly intact Psych/Mental Status: Normal Affect, Appropriate Vital Signs Temp Pulse Resp BP Pulse Ox 97.2 F L 81 14 132/74 H 97 09/29/17 15:51 09/29/17 21:07 09/29/17 21:07 09/29/17 21:07 09/29/17 21:07 Oxygen Delivery Method Room Air Weight: 89.2 kg Body Mass Index (BMI) 34.8 Finger Stick Blood Glucose 124 Laboratory Tests Past 24 Hrs WBC 5.3 RBC 4.30 Hgb 9.4 L Hct 30.6 L MCV 71.2 L MCH 21.9 L MCHC 30.7 L RDW 18.8 H Assessment/Plan Active and Suspected Problems (Last Updated 09/28/17 @ 08:55 by Romina Francisco) Cellulitis (Acute) 71 year old female w/ h/o DMII, HTN and lower extremity wounds / ulcers admitted for bilateral lower extremity cellulitis. 1) Bilateral lower extremity cellulitis: Will start zosyn and vancomycin given failed outpt therapy. Likely can de-escalate antibiotics if cultures negative. Doppler likely negative for DVTs. Pain control. Wound care. 2) ROLF: Improving. Supportive are. Monitor. 3) HTN: Resume home meds. 4) Afib: C/w rate control. C/w coumadin. INR 3.3 5) Prophylaxis: Coumadin. 09/30/17 0534 <Electronically signed by Harley Livingston MD> Date Harley Livingston MD Cosigner Signature: Date (if applicable) CC: Harley Livingston MD; Aaron Tidwell MD Signed EMERGENCY DEPARTMENT Observed: 09/30/2017 Status: F Source: [place] SUMMARY 1:02 AM [facility] REPOSITORY [facility] Medical Records Department [address] [place] [address] Emergency Department Summary 09/29/17 1924 MR#: [id number] Acct: [id number] Name: DI ZAPATA Rep #: [id number] : 1945 71 From: Christen Prado MD PCP: Aaron Tidwell MD Status: ADM IN - ER Visit Summary Date of Service: 09/29/17 Chief Complaint: Cellulitis History of Present Illness: The patient is a 71 F with chronic venous ulcer to the right lower extremity since June. She has had noted increased redness and swelling to both lower legs. Patient was sent down for pain management physician's office due to increasing redness and swelling, not improving on Keflex. Patient was seen here in the emergency room in late August and followed up in the wound center a few days later. Patient states in the wound center they scraped the wound edges and place a dressing on the wound. She is to follow-up with them next week. She has not noted any fever. Physical Examination: Vital signs are unremarkable. Patient is afebrile. Head neck examination is normal. Heart is regular rate and rhythm. Lungs are clear. Abdomen is soft nontender. Lower extremity examination reveals 2+ bilateral lower extremity edema with mild erythema and warmth. She has what appears to be chronic venous ulcers to the medial right lower extremity without sign of secondary acute infection. A skin tear noted of the posterior left lower extremity. Strong pulses are noted throughout. Test Results: CBC was normal white count. Hemoglobin is 9.4. Chemistry studies reveal BUN 19 creatinine 1.54. This is improved when compared to her priors. INR is supratherapeutic at 3.3. Her pain management physician asked that we get venous Dopplers of her legs which were done and normal. Emergency Department Course and Treatment: Patient was ordered a dose of IV clindamycin after I evaluated her. On final, repeat evaluation I advised her that she been placed on clindamycin when she was here in the emergency room in late August. She states this is actually the antibiotic that she is still on, not Keflex as previously reported. Patient states her primary concern is the pain that she has in her legs. I will admit her for antibiotics, but patient will require probable wrapping to her legs and better pain control. Treatment Plan: [] Disposition: Admit Impression: 1. Cellulitis bilateral lower extremities, failed outpatient management 2. Bilateral leg pain This note was generated with [employer] dictation software. It may contain incorrect words, spelling, and punctuation that were not noted in review of the chart prior to signing ED Disposition - Plan for ED Patient: Chief Complaint: Cellulitis Referrals: Aaron Tidwell MD [Primary Care Provider] - What to do if you have Problems For any increased pain, shortness of breath, bleeding, nausea or vomiting, chest pain, or any unexpected problems, contact your Primary Care Provider. Call [facility] ([phone]) or report to the closest Emergency Room. Call 911 if necessary. 09/30/17 0102 <Electronically signed by Christen Prado MD> Date Christen Prado MD Cosigner Signature (If Indicated): Date CC: Aaron Tidwell MD Observed: 09/30/2017 Status: F Source: [place] CULTURE, BLOOD (WB) 12:15 AM [facility] REPOSITORY BC No growth in 5 days. Performed By: #### M200.1000 #### [place] [facility] [address] [place], [address] CBC W/DIFF, AUTOMATED Collected: 09/29/2017 Status: F Source: [place] 5:40 PM [facility] REPOSITORY TYPE CODE TESTS RESULT OUT OF RANGE REFERENCE UNITS LAB L100.1000 4.4-11.0 K/mm3 Normal WBC 5.3 LAB L100.1200 4.2-5.4 M/mm3 Normal RBC 4.30 LAB L100.1300 12.0-15.0 g/dl Low HGB 9.4 LAB L100.1400 37-47 % Low HCT 30.6 LAB L100.1500 81-99 fL Low MCV 71.2 LAB L100.1600 27.0-32.0 pg Low MCH 21.9 LAB L100.1700 32-36 g/gl Low MCHC 30.7 LAB L100.1810 11.6-14.6 % High RDW CV 18.8 LAB L100.1820 35.1-43.9 fl High RDW SD 48.6 LAB L100.1900 150-450 K/mm3 Normal PLT 220 LAB L100.2000 6.2-12.0 fl Normal MPV 10.1 LAB L100.2100 47-70 % Normal NEUT% 55.0 LAB L100.2200 19-41 % Normal LY% 25.2 LAB L100.2300 0-10 % High MONO% 18.8 LAB L100.2400 0-5 % Normal EO% 0.8 LAB L100.2500 0-1 % Normal BASO% 0.2 LAB L100.2550 0.0-0.9 % Normal IM GRAN % 0.000 Result Comment: IG% - Immature Granulocytes (promyelocytes, myelocytes and metamyelocytes) > 1% indicates that a LEFT SHIFT is Present. LAB L100.2620 2.0-7.7 X10 3/uL Absolute Neut Normal 2.9 LAB L100.2720 0.83-4.51 X10 3/ul Absolute Lymph Normal 1.34 LAB L100.4700 REACTIVE LYMPH Normal RARE LAB L100.5500 ADEQ PLT EST Normal ADEQUATE LAB L100.7300 ANISO Normal 1+ LAB L100.7500 POLYCHROMASIA Normal RARE LAB L100.7600 HYPOCHROMASIA Normal 2+ LAB L100.7700 MICROCYTES Normal 3+ Performed By: #### L100.0100 #### [facility] [address] [place], [address] BASIC METABOLIC Collected: 09/29/2017 Status: F Source: [place] PROFILE ([facility]) 5:40 PM [facility] REPOSITORY TYPE CODE TESTS RESULT OUT OF RANGE REFERENCE UNITS LAB L501.0100 70-110 mg/dL Normal GLU 93 LAB L501.1000 7-18 mg/dL High BUN 19 LAB L501.1100 0.55-1.02 mg/dL High 1.54 CREAT,SERUM Result Comment: The validity of the calculated GFR AND GFRAA in patients over 70 years has not been determined. Clinical correlation is essential. LAB L501.1110 >60 mL/min Low EST GFR 35 Result Comment: Non- GFR Calc LAB L501.1115 >60 mL/min Low EST GFR - AA 43 Result Comment: GFR Calc LAB L501.1255 ml/min Normal Estimated CRCL 28.12 LAB L501.1300 10-20 RATIO Normal BUN/CRE 12.3 LAB L501.2200 8.5-10 mg/dL Normal .1 CA 10.0 LAB L501.5300 136-14 mmol/L Normal 5 NA 142 LAB L501.5600 3.5-5. mmol/L Normal 1 K 3.7 Result Comment: Slight Hemolysis, Result may be falsely increased. LAB L501.5900 98-107 mmol/L High CL 109 LAB L501.6100 21.0-32.0 mmol/L Normal CO2 25.0 LAB L501.6200 5-15 Normal 8 GAP Performed By: #### L500.2500 #### [facility] [address] [place], [address] PROTHROMBIN TIME W/INR Collected: 09/29/2017 Status: F Source: [place] 5:40 PM [facility] REPOSITORY TYPE CODE TESTS RESULT OUT OF RANGE REFERENCE UNITS LAB L300.4150 11.7-14.9 SECONDS High PROTIME 32.0 LAB L300.4200 Normal INR 3.3 Performed By: #### L300.3900 #### [facility] [address] [facility] [place], [address] VENOUS DUPLEX Observed: 09/29/2017 Status: F Source: [place] IMAG/JAIRO EXTREM 5:23 PM [facility] REPOSITORY [facility] Imaging Services [address] [facility] [place] [address] Venous Duplex Imag/Jairo Extrem MR#: [id number] Acct: [id number] Name: DI ZAPATA Rep #: [id number] : 1945 F 71 From: Jennifer Antoine MD PCP: Aaron Tidwell MD Status: ADM IN Study: Venous Duplex Imag/Jairo Extrem Date of Exam: 09/29/17 Exam# [id number] Ordering Dr: Christen Prado MD STUDY: VENOUS DOPPLER ULTRASOUND - BILATERAL LOWER EXTREMITIES REASON FOR EXAM: Female, 71 years old. bilateral swelling. TECHNIQUE: Ultrasound evaluation of the deep vein system to include smith-scale imaging and compression was performed. Smith-scale imaging and Doppler sonographic evaluation, including duplex spectral analysis and qualitative color flow sonography, was performed. COMPARISON: None. FINDINGS: RIGHT LEG Common Femoral Vein: Normal compression, spontaneity and augmentation. Normal color Doppler. Common Femoral Vein/Greater Saphenous Junction: Normal compression, spontaneity and augmentation. Normal color Doppler. Deep Femoral Vein: Normal compression, spontaneity and augmentation. Normal color Doppler. Superficial Femoral Proximal: Normal compression, spontaneity and augmentation. Normal color Doppler. Superficial Femoral Middle: Normal compression, spontaneity and augmentation. Normal color Doppler. Superficial Femoral Distal: Normal compression, spontaneity and augmentation. Normal color Doppler. Popliteal Vein: Normal compression, spontaneity and augmentation. Normal color Doppler. Posterior Tibial Vein: Normal compression. Normal color Doppler. Peroneal Vein: Normal compression. Normal color Doppler. There is no demonstrated deep venous thrombosis. LEFT LEG Common Femoral Vein: Normal compression, spontaneity and augmentation. Normal color Doppler. Common Femoral Vein/Greater Saphenous Junction: Normal compression, spontaneity and augmentation. Normal color Doppler. Deep Femoral Vein: Normal compression, spontaneity and augmentation. Normal color Doppler. Superficial Femoral Proximal: Normal compression, spontaneity and augmentation. Normal color Doppler. Superficial Femoral Middle: Normal compression, spontaneity and augmentation. Normal color Doppler. Superficial Femoral Distal: Normal compression, spontaneity and augmentation. Normal color Doppler. Popliteal Vein: Normal compression, spontaneity and augmentation. Normal color Doppler. Posterior Tibial Vein: Normal compression. Normal color Doppler. Peroneal Vein: Normal compression. Normal color Doppler. There is no demonstrated deep venous thrombosis. US/Venous Duplex Imag/Jairo Extrem IMPRESSION: No DVT identified. Electronically Signed: Jennifer Antoine MD at 16:31 EST Tel , Service support , CC: Christen Prado MD; Aaron Tidwell MD Oxyacetylene Cutter: Signed FECAL OCCULT BLD Collected: 09/29/2017 Status: F Source: [facility] 10:00 AM [facility] REPOSITORY TYPE CODE TESTS RESULT OUT OF REFERENCE UNITS RANGE LAB IFO Negative Immuno Negative FOB Result Comment: This test was developed and its performance characteristics determined by [facility] Cut Off ([facility]). It has not been cleared or approved by the FDA. [facility] is regulated under CLIA as qualified to perform high-complexity testing. This test is used for clinical purposes. It should not be regarded as investigational or for research. Performed By: #### IFOBT #### [facility] [address] [address] PROGRESS Observed: 09/29/2017 Status: COMPLETED Source: [place] 9:11 AM [facility] REPOSITORY HNO ID: [id number] Author: Mackenzie Ferguson (Finishing Manager) KRISTEN Bell Service: (none) Author Type: Nurse Practitioner Type: Progress Notes Filed: 09/29/2017 9:30 AM Note Text: HPI/CC: Di Zapata is a 71 year old female who presents for Shortness of Breath. Patient is accompanied by her daughter. Patient reports 2 ER visits in the last week for the same. Patient has an extensive cardiovascular, pulmonary and DM with ESRD Hx. Followed by cardiology (Dr. Childers) and pulmonology (Dr. Wylie). Recently started on narcotic medication for leg pain. Er determined that this was the cause of her symptoms. Last dose of Narcotic was 2 days ago and symptoms continue. ER w/u was WNL for patient. SOB is intermittent and presents mostly in the evenings at bedtime x 2 days. Reports difficulty taking in a deep breath, increased LE x 1 month and a mild cough. Uses BiPAP at HS. Denies SOBE, dizziness, lightheadedness, CP, palpitations, N/V, change in ambulation or strength. HENRIQUE-7: Feeling nervous, anxious, or on edge 3 Nearly every day Not being able to stop or control worrying 3 Nearly every day Worrying too much about different things 3 Nearly every day Trouble relaxing 3 Nearly every day Being so restless that it's hard to sit still 3 Nearly every day Being easily annoyed or irritable 2 Over half the days Feeling afraid as if something awful might happen 3 Nearly every day HENRIQUE-7 Anxiety Score 20 severe anxiety If you checked off any problems, how difficult have these problems made it for you to do your work, take care of things at home, or get along with other people? Extremely difficult ROS as above, otherwise non-contributory. Reviewed PMHx, PSHx, social Hx, medications and allergies. PHYSICAL EXAMINATION: BP 124/82 Pulse 88 Resp 16 Wt 88.9 kg (196 lb) SpO2 99% BMI 34.18 kg/m2 General appearance: Well appearing, alert, in no acute distress, well-hydrated, well nourished., Morbidly obese Skin: Skin color, texture, turgor normal, no suspicious rashes or lesions Lungs: Lungs clear to auscultation. No wheezing, rhonchi, rales Heart: irregular rate without murmur, gallop, or rubs. ASSESSMENT/PLAN: 1. SOB (shortness of breath) - ICD9: 786.05, ICD10: R06.02 - TSH BLD - T3 BLD - T4 FREE/FREE THYROX - CBC + DIFF - COMP METABOLIC PANEL - IRON + TIBC - FECAL OCCULT BLOOD TEST - PROTHROMBIN TIME/PT - FERRITIN BLD - NT PRO BNP - consider anxiety vs cardiopulmonary etiology - f/u with cardiology, pulmonology and PCP for further W/U and evaluation. Mackenzie Bell CNP PROTHROMBIN TIME W/INR Collected: 09/28/2017 Status: F Source: [place] 4:19 PM [facility] REPOSITORY TYPE CODE TESTS RESULT OUT OF REFERENCE UNITS RANGE LAB L300.4150 11.7-14.9 SECONDS High PROTIME 37.1 LAB L300.4200 High alert INR 4.0 Result Comment: CRITICAL VALUE VERIFIED. CALLED TO FROILAN STERN AT [facility] 09/28/17 [address]. RESULTS READ BACK BY SAME . Performed By: #### L300.3900 #### [facility] [address] [place], [address] CBC W/DIFF, AUTOMATED Collected: 09/28/2017 Status: F Source: [place] 4:19 PM [facility] REPOSITORY TYPE CODE TESTS RESULT OUT OF RANGE REFERENCE UNITS LAB L100.1000 4.4-11.0 K/mm3 Normal WBC 5.0 LAB L100.1200 4.2-5.4 M/mm3 Normal RBC 4.51 LAB L100.1300 12.0-15.0 g/dl Low HGB 9.6 LAB L100.1400 37-47 % Low HCT 31.8 LAB L100.1500 81-99 fL Low MCV 70.5 LAB L100.1600 27.0-32.0 pg Low MCH 21.3 LAB L100.1700 32-36 g/gl Low MCHC 30.2 LAB L100.1810 11.6-14.6 % High RDW CV 18.6 LAB L100.1820 35.1-43.9 fl High RDW SD 47.9 LAB L100.1900 150-450 K/mm3 Normal PLT 214 LAB L100.2000 6.2-12.0 fl Normal MPV 9.9 LAB L100.2100 47-70 % Normal NEUT% 58.6 LAB L100.2200 19-41 % Normal LY% 23.1 LAB L100.2300 0-10 % High MONO% 17.5 LAB L100.2400 0-5 % Normal EO% 0.6 LAB L100.2500 0-1 % Normal BASO% 0.2 LAB L100.2550 0.0-0.9 % Normal IM GRAN % 0.000 Result Comment: IG% - Immature Granulocytes (promyelocytes, myelocytes and metamyelocytes) > 1% indicates that a LEFT SHIFT is Present. LAB L100.2620 2.0-7.7 X10 3/uL Absolute Neut Normal 3.0 LAB L100.2720 0.83-4.51 X10 3/ul Absolute Lymph Normal 1.16 LAB L100.4500 SMEAR COMMENT Normal SCANNED LAB L100.7300 ANISO Normal 1+ LAB L100.7500 POLYCHROMASIA Normal RARE LAB L100.7600 HYPOCHROMASIA Normal 2+ LAB L100.8600 TARGET CELLS Normal 1+ Performed By: #### L100.0100 #### [facility] [address] [place], [place], [id number] COMPREHENSIVE METABOLIC Collected: 09/28/2017 Status: F Source: [place] 4:19 PM [facility] REPOSITORY Order Comment: Has Patient had X-rays with Contrast this admission? N TYPE CODE TESTS RESULT OUT OF RANGE REFERENCE UNITS LAB L501.0100 70-110 mg/dL Normal GLU 110 Result Comment: Fasting Glucose result from 110 to <126 mg/dL suggests IMPAIRED HOMEOSTASIS per A.D.A. criteria. LAB L501.1000 7-18 mg/dL High BUN 22 LAB L501.1100 0.55-1.02 mg/dL High CREAT,SERUM 1.59 Result Comment: The validity of the calculated GFR AND GFRAA in patients over 70 years has not been determined. Clinical correlation is essential. LAB L501.1110 >60 mL/min Low EST GFR 34 Result Comment: Non- GFR Calc LAB L501.1115 >60 mL/min Low EST GFR - AA 41 Result Comment: GFR Calc LAB L501.1300 10-20 RATIO Normal BUN/CRE 13.8 LAB L501.1500 6.4-8.2 g/dL High T PROT 8.3 LAB L501.1800 3.4-5.0 g/dL Low ALB 3.3 Result Comment: Please note revised Albumin AND Globulin reference range effective 2017. LAB L501.1950 2.2-4.2 g/dL High GLOB 5.0 LAB L501.2000 0.9-2.4 RATIO Low A/G 0.7 LAB L501.2200 8.5-10.1 mg/dL Normal CA 9.8 LAB L501.4100 15-37 U/L Normal AST 32 LAB L501.4305 45-117 U/L Normal ALK P 78 LAB L501.4405 12-78 U/L Normal ALT 23 LAB L501.4600 0.20-1.00 mg/dL Normal T BILI 0.80 LAB L501.5300 136-145 mmol/L Normal NA 139 LAB L501.5600 3.5-5.1 mmol/L Low K 3.4 LAB L501.5900 98-107 mmol/L Normal CL 104 LAB L501.6100 21.0-32.0 mmol/L Normal CO2 26.0 LAB L501.6200 5-15 Normal GAP 9 Performed By: #### L500.4050, L501.9520, L503.6075, L503.6150, L503.6550, L506.0400 #### [facility] [address] [facility] [address] [place], [place], [phone] ([phone] THYROID STIM HORMONE Collected: 09/28/2017 Status: F Source: [place] (TSH) 4:19 PM [facility] REPOSITORY Order Comment: Has Patient had X-rays with Contrast this admission? N TYPE CODE TESTS RESULT OUT OF RANGE REFERENCE UNITS LAB L501.9520 0.358-3.74 uIU/mL Normal TSH 0.62 Performed By: #### L500.4050, L501.9520, L503.6075, L503.6150, L503.6550, L506.0400 #### [facility] [address] [facility] [place], [place], [id number] IRON BINDING Collected: 09/28/2017 Status: F [facility] REPOSITORY Order Comment: Has Patient had X-rays with Contrast this admission? N TYPE CODE TESTS RESULT OUT OF RANGE REFERENCE UNITS LAB L503.6075 250-450 ug/dL High TIBC 530 Performed By: #### L500.4050, L501.9520, L503.6075, L503.6150, L503.6550, L506.0400 #### [facility] [address] [facility] [place], [place], [id number] IRON Collected: 09/28/2017 Status: F Source: [place] 4:19 PM [facility] REPOSITORY Order Comment: Has Patient had X-rays with Contrast this admission? N TYPE CODE TESTS RESULT OUT OF RANGE REFERENCE UNITS LAB L503.6150 50-170 ug/dL Low IRON 26 Performed By: #### L500.4050, L501.9520, L503.6075, L503.6150, L503.6550, L506.0400 #### [facility] [address] [place], [address] FERRITIN Collected: 09/28/2017 Status: F Source: [place] 4:19 PM [facility] REPOSITORY Order Comment: Has Patient had X-rays with Contrast this admission? N TYPE CODE TESTS RESULT OUT OF RANGE REFERENCE UNITS LAB L503.6550 8-252 ng/mL Normal FERRITIN 18 Performed By: #### L500.4050, L501.9520, L503.6075, L503.6150, L503.6550, L506.0400 #### [facility] [facility] [place], [place], [phone] T4 FREE DIRECT Collected: 09/28/2017 Status: F Source: [place] 4:19 PM [facility] REPOSITORY Order Comment: Has Patient had X-rays with Contrast this admission? N TYPE CODE TESTS RESULT OUT OF REFERENCE UNITS RANGE LAB L506.0400 0.76-1.46 ng/dL High T4 FREE 1.60 DIRECT Performed By: #### L500.4050, L501.9520, L503.6075, L503.6150, L503.6550, L506.0400 #### [facility] [address] [place], [place], [address] BNP,B-TYPE NATRIURETIC Collected: 09/28/2017 Status: F Source: [place] PEPTIDE 4:19 PM [facility] REPOSITORY TYPE CODE TESTS RESULT OUT OF RANGE REFERENCE UNITS LAB L503.6620 0-100 pg/mL High B-TYPE 248.3 ESTIVEN PEP Performed By: #### L503.6620 #### [facility] [address] [facility] [place], [address] T3 TOTAL - TRIIODOTHYRONINE Collected: 09/28/2017 Status: F Source: [place] 4:19 PM [facility] REPOSITORY TYPE CODE TESTS RESULT OUT OF RANGE REFERENCE UNITS LAB L501.9186 0.6-1.81 ng/mL Normal T3 Total 0.60 Performed By: #### L501.9186 #### [facility] [address] [place], [address] CNOV Observed: 09/28/2017 Status: COMPLETED Source: [place] 3:00 PM [facility] REPOSITORY Office Visit (FAMPWS) DI ZAPATA ([id number]) 1945 F Date Time Provider Department 09/28/17 3:00 PM MACKENZIE BELL) [facility] During your visit today, we recorded the following information about you: Pulse Respiration Blood pressure Weight 88/minute 16/minute 124/82 88.9 kg Mackenzie Bell CNP, CNP 09/29/2017 9:30 AM Signed HPI/CC: Di Zapata is a 71 year old female who presents for Shortness of Breath. Patient is accompanied by her daughter. Patient reports 2 ER visits in the last week for the same. Patient has an extensive cardiovascular, pulmonary and DM with ESRD Hx. Followed by cardiology (Dr. Childers) and pulmonology (Dr. Wylie). Recently started on narcotic medication for leg pain. Er determined that this was the cause of her symptoms. Last dose of Narcotic was 2 days ago and symptoms continue. ER w/u was WNL for patient. SOB is intermittent and presents mostly in the evenings at bedtime x 2 days. Reports difficulty taking in a deep breath, increased LE x 1 month and a mild cough. Uses BiPAP at HS. Denies SOBE, dizziness, lightheadedness, CP, palpitations, N/V, change in ambulation or strength. HENRIQUE-7: Feeling nervous, anxious, or on edge 3 Nearly every day Not being able to stop or control worrying 3 Nearly every day Worrying too much about different things 3 Nearly every day Trouble relaxing 3 Nearly every day Being so restless that it's hard to sit still 3 Nearly every day Being easily annoyed or irritable 2 Over half the days Feeling afraid as if something awful might happen 3 Nearly every day HENRIQUE-7 Anxiety Score 20 severe anxiety If you checked off any problems, how difficult have these problems made it for you to do your work, take care of things at home, or get along with other people? Extremely difficult ROS as above, otherwise non-contributory. Reviewed PMHx, PSHx, social Hx, medications and allergies. PHYSICAL EXAMINATION: BP 124/82 Pulse 88 Resp 16 Wt 88.9 kg (196 lb) SpO2 99% BMI 34.18 kg/m2 General appearance: Well appearing, alert, in no acute distress, well-hydrated, well nourished., Morbidly obese Skin: Skin color, texture, turgor normal, no suspicious rashes or lesions Lungs: Lungs clear to auscultation. No wheezing, rhonchi, rales Heart: irregular rate without murmur, gallop, or rubs. ASSESSMENT/PLAN: 1. SOB (shortness of breath) - ICD9: 786.05, ICD10: R06.02 - TSH BLD - T3 BLD - T4 FREE/FREE THYROX - CBC + DIFF - COMP METABOLIC PANEL - IRON + TIBC - FECAL OCCULT BLOOD TEST - PROTHROMBIN TIME/PT - FERRITIN BLD - NT PRO BNP - consider anxiety vs cardiopulmonary etiology - f/u with cardiology, pulmonology and PCP for further W/U and evaluation. KRISTEN Saeed CNP 09/29/2017 11:21 AM Signed Addended by: MILLICENT BARRIOS CNP on: 09/29/2017 11:21 AM Modules accepted: Orders Referring Provider: SELF [200] Allergies As of Date: 09/28/2017 Noted Allergy Reaction BACTRIM (SULFAMETHOXAZOLE-TRIMETH*06/29/2007 2 - Rash CARDURA (DOXAZOSIN) 04/24/2013 16 - Unknown CEFTRIAXONE 08/10/2017 14 - Other: See Comments Comments: Veins turned red DEMEROL (MEPERIDINE (PF)) 04/18/2006 DOXYCYCLINE 04/18/2006 NORVASC (AMLODIPINE BESYLATE) 04/06/2011 7 - Swelling SULFA (SULFONAMIDE ANTIBIOTICS) 07/04/2005 2 - Rash VASOTEC (ENALAPRIL MALEATE) 04/18/2006 3 - Cough VISTARIL (HYDROXYZINE HCL) 04/18/2006 Date Reviewed: 09/28/2017 Reviewed by: Jace Costa LPN - Fully Assessed Reason for Visit: Shortness of Breath [227] Cmt: intermittent; mostly in the evenings at bedtime Primary Visit Diagnosis:SOB (shortness of breath) [R06.02] Order(s):TSH BLD [SQTSH] Order #: [id number] FUTURE T3 BLD [SQT3] Order #: [id number] FUTURE T4 FREE/FREE THYROX [SQFT4] Order #: [id number] FUTURE Prescriptions as of 09/28/2017 Sig: FUROSEMIDE 20 MG TABLET Take 1 tablet by mouth every * ASPIRIN 81 MG TABLET,DELAYED * Take 1 tablet by mouth once d* WARFARIN 5 MG TABLET Take 5 mg daily (per * METOPROLOL TARTRATE 25 MG TAB* Take 0.5 tablets by mouth twi* METFORMIN 500 MG TABLET Take 1 tablet by mouth daily * COMPOUNDED PRESCRIPTION Thigh High Compression Stocki* Problem List As Of Date 09/28/2017 Noted Resolved Hypertension goal BP (blood pressure) < 150/90 *INVALID FOR* More... Rheumatoid arthritis of multiple sites with neg*INVALID FOR* More... 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 Other diseases of lung, not elsewhere classifie*INVALID FOR*02/11/2015 More... SLEEP APNEA NOS [G47.30] INVALID FOR*04/18/2006 Obesity, unspecified [E66.9] INVALID FOR*02/11/2015 Impaired fasting glucose [R73.01] INVALID FOR*02/27/2012 More... 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] INVALID FOR*02/11/2015 Candidal intertrigo [B37.2] INVALID FOR*02/11/2015 Intertrigo [L30.4] INVALID FOR*02/11/2015 Eczema Dermatitis and Other Eczema, due to Unsp*INVALID FOR*09/28/2016 Diabetes mellitus (HCC) [E11.9] INVALID FOR*01/05/2015 Venous insufficiency [I87.2] INVALID FOR*07/15/2015 Edema [R60.9] INVALID FOR*02/11/2015 Pain in joint, shoulder region [M25.519] INVALID FOR*02/11/2015 Disorders of bursae and tendons in shoulder reg*INVALID FOR*09/28/2016 Diabetes mellitus type 2, controlled [E11.9] INVALID FOR*02/11/2015 DM (diabetes mellitus), type 2 (HCC) [E11.9] INVALID FOR*07/15/2015 Venous insufficiency (chronic) (peripheral) [I8*INVALID FOR* More... Atrial fibrillation (HCC) [I48.91] INVALID FOR* More... Type 2 diabetes mellitus with diabetic chronic *INVALID FOR*01/06/2016 Lymphedema, not elsewhere classified [I89.0] INVALID FOR*05/17/2017 Type 2 diabetes mellitus with stage 3 chronic k*INVALID FOR* More... Pulmonary nodule [R91.1] INVALID FOR* More... Systolic congestive heart failure (HCC) [I50.20]INVALID FOR* More... Hydronephrosis [N13.30] INVALID FOR* UI (urinary incontinence) [R32] INVALID FOR* Patent ductus arteriosus [Q25.0] INVALID FOR* More... S/P Maze operation for atrial fibrillation [Z98*INVALID FOR* More... CKD (chronic kidney disease) stage 3, GFR 30-59*INVALID FOR* More... Anemia, unspecified [D64.9] INVALID FOR* Hypoxemia requiring supplemental oxygen [R09.02*INVALID FOR* Hypercalcemia [E83.52] INVALID FOR* Hypervitaminosis D (rule out granulomatous dise*INVALID FOR* Questionnaire: HENRIQUE-7 ANXIETY SCALE Feeling nervous, anxious, or on edge -> 3 Nearly every day Not being able to stop or control worrying -> 3 Nearly every day Worrying too much about different things -> 3 Nearly every day Trouble relaxing -> 3 Nearly every day Being so restless that it's hard to sit still -> 3 Nearly every day Being easily annoyed or irritable -> 2 Over half the days Feeling afraid as if something awful might happen -> 3 Nearly every day HENRIQUE-7 Anxiety Score -> 20 Cmt: severe anxiety If you checked off any problems, how difficult have these problems made it for you to do your work, take care of things at home, or get along with other people? -> Extremely difficult Encounter Status:Closed by MACKENZIE BELL CNP on 09/29/17 12 LEAD ELECTROCARDIOGRAM Observed: 09/28/2017 Status: F Source: [place] 2:03 PM [facility] REPOSITORY [facility] Cardiovascular Services [address] [place] [address] 12 Lead EKG 09/26/171946 MR#: [id number] Acct: [id number] Name: DI ZAPATA Rep #: [id number] : 1945 71 From: Huang Farr MD Attending Dr: Status: DEP ER Ordering Dr: Mauricio Mccurdy MD Date: 09/26/17 Location: ED Sex: F C Admitted: Test Reason : SOB Blood Pressure : / mmHG Vent. Rate : 081 BPM Atrial Rate : 092 BPM P-R Int : 000 ms QRS Dur : 100 ms QT Int : 372 ms P-R-T Axes : 000 037 046 degrees QTc Int : 432 ms Atrial fibrillation Nonspecific ST and T wave abnormality Abnormal ECG Confirmed by HUANG FARR ([id number]), acquisitions editor CARLENE NELSON ([id number]) on 09/28/2017 2:03:25 PM Referred By: [place] Confirmed By:HUANG FARR 09/28/17 1403 Date Huang Farr MD CC: Aaron Tidwell MD Signed PROTHROMBIN TIME W/INR Collected: 09/27/2017 Status: F Source: [place] 2:18 PM [facility] REPOSITORY TYPE CODE TESTS RESULT OUT OF REFERENCE UNITS RANGE LAB L300.4150 11.7-14.9 SECONDS High PROTIME 38.9 LAB L300.4200 High alert INR 4.2 Result Comment: CRITICAL VALUE VERIFIED. CALLED TO MANDO CALI 09/27/17 Jason2 Cuba Saldivar. RESULTS READ BACK BY MANDO . Performed By: #### L300.3900 #### [facility] [address] [place], [address] RENAL PROFILE Collected: 09/27/2017 Status: F Source: [place] 11:48 AM [facility] REPOSITORY TYPE CODE TESTS RESULT OUT OF RANGE REFERENCE UNITS LAB L501.0100 70-110 mg/dL High GLU 111 Result Comment: Fasting Glucose result from 110 to <126 mg/dL suggests IMPAIRED HOMEOSTASIS per A.D.A. criteria. LAB L501.1000 7-18 mg/dL High BUN 33 LAB L501.1100 0.55-1.02 mg/dL High CREAT,SERUM 1.94 Result Comment: The validity of the calculated GFR AND GFRAA in patients over 70 years has not been determined. Clinical correlation is essential. LAB L501.1110 >60 mL/min Low EST GFR 27 Result Comment: Non- GFR Calc LAB L501.1115 >60 mL/min Low EST GFR - AA 33 Result Comment: GFR Calc LAB L501.1255 ml/min Normal Estimated CRCL 22.32 LAB L501.1300 10-20 RATIO Normal BUN/CRE 17.0 LAB L501.1800 3.4-5. g/dL Normal 0 ALB 3.5 Result Comment: Please note revised Albumin AND Globulin reference range effective 2017. LAB L501.2200 8.5-10.1 mg/dL Normal CA 9.8 LAB L501.2300 2.5-4.9 mg/dL Normal PHOS 3.2 LAB L501.5300 136-145 mmol/L Low NA 135 LAB L501.5600 3.5-5.1 mmol/L Normal K 3.5 LAB L501.5900 98-107 mmol/L Normal CL 98 LAB L501.6100 21.0-32.0 mmol/L Normal CO2 25.0 Performed By: #### L500.3600 #### [facility] [address] [place], [address] VITAMIN D,25 HYDROXY Collected: 09/27/2017 Status: F Source: [place] 11:48 AM [facility] REPOSITORY TYPE CODE TESTS RESULT OUT OF RANGE REFERENCE UNITS LAB L506.1000 ng/mL Normal Vitamin D 32.9 25-OH Result Comment: Vitamin D 25(OH) Status Range Deficiency <20 ng/mL (50nmol/L) Insuffciency 20 - 30 ng/mL (50 - 75 nmol/L) Sufficiency 30 - 100 ng/mL (75 - 250 nmol/L) Toxicity >100 ng/mL (>250 nmol/L) Performed By: #### L506.1000 #### [facility] [address] [place], [address] ERYTHROCYTE SED RATE Collected: 09/27/2017 Status: F Source: [place] 11:46 AM [facility] REPOSITORY TYPE CODE TESTS RESULT OUT OF RANGE REFERENCE UNITS LAB L102.0000 0-30 mm/hr High SED RATE 71 Performed By: #### L101.9900 #### [facility] [address] [place], [address] CALCIUM,TOTAL Collected: 09/27/2017 Status: F Source: [place] 11:46 AM [facility] REPOSITORY TYPE CODE TESTS RESULT OUT OF RANGE REFERENCE UNITS LAB L501.2200 8.5-10.1 mg/dL Normal CA 10.0 Performed By: #### L501.2200, L501.3620, L501.6710 #### [facility] [address] [place], [address] CPK TOTAL, CREATINE Collected: 09/27/2017 Status: F Source: [place] KINASE 11:46 AM [facility] REPOSITORY TYPE CODE TESTS RESULT OUT OF RANGE REFERENCE UNITS LAB L501.3620 26-192 U/L Normal CPK TOTAL 97 Performed By: #### L501.2200, L501.3620, L501.6710 #### [facility] [address] [place], [address] CRP Collected: 09/27/2017 Status: F Source: [place] 11:46 AM [facility] REPOSITORY TYPE CODE TESTS RESULT OUT OF RANGE REFERENCE UNITS LAB L501.6710 0.0-3.0 mg/L High 46.10 C-REACTIVE PROT Result Comment: C-Reactive Protein (CRP) provides useful information for the diagnosis, therapy and monitoring of inflammatory processes and associated diseases. For the evaluation of Relative Risk for Cardiovascular Disease, a High Sensitivity CRP (HSCRP) should be ordered. Performed By: #### L501.2200, L501.3620, L501.6710 #### [facility] [address] [place], [address] PTHIN Collected: 09/27/2017 Status: F Source: [place] 11:46 AM [facility] REPOSITORY TYPE CODE TESTS RESULT OUT OF RANGE REFERENCE UNITS LAB L509.1000 18.4-80.1 pg/mL Low PTHIN 2.9 Result Comment: Please Note: PTH INTACT METHOD AND REFERENCE RANGE CHANGE Effective 09/13/2017. Performed By: #### L509.1000 #### [facility] [address] [place], [address] ANTINUCLEAR ANTIBODIES Collected: 09/27/2017 Status: F Source: [place] DIRECT 11:46 AM [facility] REPOSITORY Order Comment: WANTS THE CA CRP CPK SED HASEEB PTH DR. ALMONTE WANTS THE RENAL VITD DR. CHILDERS WANTS THE PT TYPE CODE TESTS RESULT OUT OF RANGE REFERENCE UNITS LAB L3100.5475 Negative Normal Negative HASEEB-DIRECT Result Comment: Performed at: [facility] [id number] Vacation Sales Advisor: Kadeem Katz PhD, Phone: [phone] Performed By: #### L3100.5475 #### [facility] (refer to report for specific site) refer to report for address and phone number PROTHROMBIN TIME W/INR Collected: 09/27/2017 Status: F Source: [place] 11:45 AM [facility] REPOSITORY TYPE CODE TESTS RESULT OUT OF REFERENCE UNITS RANGE LAB L300.4150 11.7-14.9 SECONDS High PROTIME 39.8 LAB L300.4200 High alert INR 4.3 Result Comment: CRITICAL VALUE VERIFIED. CALLED TO CARLOS ENRIQUE DAILEY 09/27/17 [facility]9 Sakina Lizama. RESULTS READ BACK BY CARLOS ENRIQUE DAILEY . Performed By: #### L300.3900 #### [facility] [address] [place], [address] DISCHARGE INSTRUCTION Observed: 09/26/2017 Status: F Source: [place] 8:57 PM [facility] REPOSITORY [facility] Medical Records Department [address] [place] [address] Discharge Instruction 09/26/172055 MR#: [id number] Acct: [id number] Name: DI ZAPATA Rep #: [id number] : 1945 71 From: Mauricio Mccurdy MD PCP: Aaron Tidwell MD Status: REG ER ED Disposition - Plan for ED Patient: Disposition: Home or Assisted Living Chief Complaint: Shortness of Breath Instructions: ED Drug React Allergic Referrals: Aaron Tidwell MD [Primary Care Provider] - What to do if you have Problems For any increased pain, shortness of breath, bleeding, nausea or vomiting, chest pain, or any unexpected problems, contact your Primary Care Provider. Call [facility] ([phone]) or report to the closest Emergency Room. Call 911 if necessary. 09/26/172056 <Electronically signed by Mauricio Mccurdy MD> Date Mauricio Mccurdy MD Cosigner Signature (If Indicated): Date CC: Aaron Tidwell MD EMERGENCY DEPARTMENT Observed: 09/26/2017 Status: F Source: [place] SUMMARY 8:56 PM [facility] REPOSITORY [facility] Medical Records Department [address] [place] [address] Emergency Department Summary 09/26/171955 MR#: [id number] Acct: [id number] Name: DI ZAPATA Rep #: [id number] : 1945 71 From: Mauricio Mccurdy MD PCP: Aaron Tidwell MD Status: REG ER - ER Visit Summary Date of Service: 09/26/17 Chief Complaint: Shortness of breath History of Present Illness: The patient is a 71 F who states that she is short of breath intermittently for the past week. She states that after she was prescribed OxyContin she has been getting short of breath. It happens after she takes the medication. She states that right before her next dose her shortness of breath gets better but when she takes the next dose and happens again. She has had a dry cough which is chronic. She denies any chest pain. She is a history of atrial fibrillation she is on warfarin. She got the OxyContin from the wound center because she has chronic leg ulcers. Physical Examination: Vital signs reviewed. HEENT exam unremarkable. Heart is irregularly irregular without murmurs. Lungs are clear to auscultation. Abdomen is soft and nontender. Extremities reveal lymphedema of the bilateral distal thigh areas. Skin exam shows bilateral chronic wounds on the lower extremities. Neurologic exam normal. Test Results: EKG is atrial fibrillation with a rate of 81. Chest x-ray reveals chronic changes. Hemoglobin is 9.8, sodium 134, potassium 3.3, creatinine 2.18 which is slightly above baseline. INR 4.5, troponin normal. BNP 220. Emergency Department Course and Treatment: The patient does not have any complaints while laying in the bed. She was able to ambulate without difficulties. I feel that this is likely a reaction to the oxycodone that she has been taking. Treatment Plan: She will stop taking the oxycodone at home. She is seeing pain management tomorrow. She will follow-up with him as far as what medication she can take regarding the pain in her ulcers drainage home. Her creatinine is slightly above baseline. She was informed that she should drink more water and become more hydrated. I do not feel she requires admission at this time for this. Her INR is also slightly elevated. She will monitor this at home. Disposition: Discharge Impression: Medication reaction This note was generated with [employer] dictation software. It may contain incorrect words, spelling, and punctuation that were not noted in review of the chart prior to signing ED Disposition - Plan for ED Patient: Chief Complaint: Shortness of Breath Referrals: Aaron Tidwell MD [Primary Care Provider] - What to do if you have Problems For any increased pain, shortness of breath, bleeding, nausea or vomiting, chest pain, or any unexpected problems, contact your Primary Care Provider. Call [facility] ([phone]) or report to the closest Emergency Room. Call 911 if necessary. 09/26/172055 <Electronically signed by Mauricio Mccurdy MD> Date Mauricio Mccurdy MD Cosigner Signature (If Indicated): Date CC: Aaron Tidwell MD CBC W/DIFF, AUTOMATED Collected: 09/26/2017 Status: F Source: [place] 8:00 PM [facility] REPOSITORY TYPE CODE TESTS RESULT OUT OF RANGE REFERENCE UNITS LAB L100.1000 4.4-11.0 K/mm3 Normal WBC 6.0 LAB L100.1200 4.2-5.4 M/mm3 Normal RBC 4.45 LAB L100.1300 12.0-15.0 g/dl Low HGB 9.8 LAB L100.1400 37-47 % Low HCT 30.8 LAB L100.1500 81-99 fL Low MCV 69.2 LAB L100.1600 27.0-32.0 pg Low MCH 22.0 LAB L100.1700 32-36 g/gl Low MCHC 31.8 LAB L100.1810 11.6-14.6 % High RDW CV 18.7 LAB L100.1820 35.1-43.9 fl High RDW SD 46.3 LAB L100.1900 150-450 K/mm3 Normal PLT 225 LAB L100.2000 6.2-12.0 fl Normal MPV 10.7 LAB L100.2100 47-70 % Normal NEUT% 60.9 LAB L100.2200 19-41 % Normal LY% 19.9 LAB L100.2300 0-10 % High MONO% 16.7 LAB L100.2400 0-5 % Normal EO% 1.8 LAB L100.2500 0-1 % Normal BASO% 0.5 LAB L100.2550 0.0-0.9 % Normal IM GRAN % 0.200 Result Comment: IG% - Immature Granulocytes (promyelocytes, myelocytes and metamyelocytes) > 1% indicates that a LEFT SHIFT is Present. LAB L100.2620 2.0-7.7 X10 3/uL Normal Absolute Neut 3.6 LAB L100.2720 0.83-4.51 X10 3/ul Normal Absolute Lymph 1.19 Performed By: #### L100.0100 #### [facility] [address] [place], [place], [address] PROTHROMBIN TIME W/INR Collected: 09/26/2017 Status: F Source: [place] 8:00 PM [facility] REPOSITORY TYPE CODE TESTS RESULT OUT OF REFERENCE UNITS RANGE LAB L300.4150 11.7-14.9 SECONDS High PROTIME 41.1 LAB L300.4200 High alert INR 4.5 Result Comment: CRITICAL VALUE VERIFIED. CALLED TO МАРИНА 09/26/17 Thao Allison. RESULTS READ BACK BY SAME . Performed By: #### L300.3900 #### [facility] [address] [place], [place], [address] BASIC METABOLIC Collected: 09/26/2017 Status: F Source: [place] PROFILE (BMP) 8:00 PM [facility] REPOSITORY Order Comment: 'TROP' Serial specimen #1, #2, #3, or #4: 1 TYPE CODE TESTS RESULT OUT OF RANGE REFERENCE UNITS LAB L501.0100 70-110 mg/dL Normal GLU 105 LAB L501.1000 7-18 mg/dL High BUN 36 LAB L501.1100 0.55-1.02 mg/dL High 2.18 CREAT,SERUM Result Comment: The validity of the calculated GFR AND GFRAA in patients over 70 years has not been determined. Clinical correlation is essential. LAB L501.1110 >60 mL/min Low EST GFR 24 Result Comment: Non- GFR Calc LAB L501.1115 >60 mL/min Low EST GFR - AA 29 Result Comment: GFR Calc LAB L501.1255 ml/min Normal Estimated CRCL 19.86 LAB L501.1300 10-20 RATIO Normal BUN/CRE 16.5 LAB L501.2200 8.5-10 mg/dL High .1 CA 10.2 LAB L501.5300 136-14 mmol/L Low 5 NA 134 LAB L501.5600 3.5-5. mmol/L Low 1 K 3.3 LAB L501.5900 98-107 mmol/L Normal CL 98 LAB L501.6100 21.0-3 mmol/L Normal 2.0 CO2 26.0 LAB L501.6200 5-15 Normal GAP 10 Performed By: #### L500.2500, L501.4010 #### [facility] [address] [place], [address] TROPONIN-I Collected: 09/26/2017 Status: F Source: [place] 8:00 PM [facility] REPOSITORY Order Comment: 'TROP' Serial specimen #1, #2, #3, or #4: 1 TYPE CODE TESTS RESULT OUT OF RANGE REFERENCE UNITS LAB L501.4010 <0.06 ng/mL Normal < 0.02 TROPONIN-I Result Comment: TROPONIN-I EXPECTED VALUES <0.05 NEGATIVE 0.06 - 0.59 AT RISK OF AR > OR = 0.60 SUGGEST AR Performed By: #### L500.2500, L501.4010 #### [facility] [address] [place], [address] BNP,B-TYPE NATRIURETIC Collected: 09/26/2017 Status: F Source: [place] PEPTIDE 8:00 PM [facility] REPOSITORY TYPE CODE TESTS RESULT OUT OF RANGE REFERENCE UNITS LAB L503.6620 0-100 pg/mL High B-TYPE 220.2 ESTIVEN PEP Performed By: #### L503.6620 #### [facility] [address] [place], [address] CHEST 1 VIEW Observed: 09/26/2017 Status: F Source: [place] (PORTABLE) 7:43 PM [facility] REPOSITORY [facility] Imaging Services [address] [facility] [place] [address] Chest 1 View (Portable) MR#: [id number] Acct: [id number] Name: EMMADI Rep #: [id number] : 1945 F 71 From: Marino Kendrick MD PCP: Aaron Tidwell MD Status: REG ER Study: Chest 1 View (Portable) Date of Exam: 09/26/17 Exam# [id number] Ordering Dr: Mauricio Mccurdy MD STUDY: X-RAY CHEST REASON FOR EXAM: Female, 71 years old. Short of breath TECHNIQUE: Single AP portable view of the chest. COMPARISON: CT scan 07/19/2017. FINDINGS: Normal lung volumes. Probable slight diffuse fibrosis. Mild scarring in the lung bases. Moderate cardiomegaly. Calcified within the aorta. Implanted playground monitor over the left heart border. Degenerative changes throughout the bones. RAD/Chest 1 View (Portable) IMPRESSION: Chronic pulmonary disease but no definite acute abnormality. Electronically Signed: Marino Kendrick MD at 20:09 EST , Service support , CC: Mauricio Mccurdy MD; Aaron Tidwell MD Oxyacetylene Cutter: Signed WOUND CTR HISTORY Observed: 09/22/2017 Status: F Source: [place] AND PHYSICAL 7:53 PM [facility] REPOSITORY [facility] W[facility] [address] [place] [address] Wound Ctr History AND Physical 09/22/17 1846 MR#: [id number] Acct: [id number] Name: DI ZAPATA Rep #: [id number] : 1945 71 From: Meche Delvalle DO PCP: Aaron Tidwell MD Status: REG RCR Y Location: WC (1) Spinal stenosis of lumbar region with radiculopathy Status: Chronic Current Visit: Yes Code(s): M48.061 - Spinal stenosis, lumbar region without neurogenic claudication; M54.16 - Radiculopathy, lumbar region (2) PAD (peripheral artery disease) Status: Chronic Current Visit: Yes Code(s): I73.9 - Peripheral vascular disease, unspecified (3) Venous stasis ulcer of left lower leg with edema of left lower leg Status: Chronic Current Visit: Yes Code(s): I83.892 - Varicose veins of left lower extremity with other complications; I83.028 - Varicose veins of left lower extremity with ulcer other part of lower leg; R60.9 - Edema, unspecified (4) Venous stasis ulcer of right lower leg with edema of right lower leg Status: Chronic Current Visit: Yes Code(s): I83.891 - Varicose veins of right lower extremity with other complications; I83.018 - Varicose veins of right lower extremity with ulcer other part of lower leg; R60.9 - Edema, unspecified (5) Arthralgia Status: Chronic Current Visit: Yes Qualifiers: Joint pain location: unspecified Qualified Code(s): M25.50 - Pain in unspecified joint Code(s): M25.50 - Pain in unspecified joint (6) Myalgia Status: Chronic Current Visit: Yes Code(s): M79.1 - Myalgia (7) Mass of soft tissue of left lower extremity Status: Chronic Current Visit: Yes Code(s): R22.42 - Localized swelling, mass and lump, left lower limb Comment: left inner upper thigh - ? calciphylaxis vs. erythema nodosum vs. dermatomyositis vs. panniculitis (8) Mass of soft tissue of right lower extremity Status: Chronic Current Visit: Yes Code(s): R22.41 - Localized swelling, mass and lump, right lower limb Comment: right inner upper thigh - ? calciphylaxis vs. erythema nodosum vs. dermatomyositis vs. 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 She states that she developed swelling in her legs in April and has not been able to get this under control and in June she developed wounds/ulcers to her right leg and left leg as blisters developed and then opened. She has been seen by Dr. Pelaez, the ER and her PCP and has had several tests but the wounds/ulcers have not healed. She has had severe pain in the wounds and her legs since July. She has indurated areas on her inner thighs and across her right abdomen that are erythematous and tender. She denies being evaluated for any rheumatologic causes of these areas but does state that when she was in the ER in April that they told her that her calcium level was high and they advised her to decrease her calcium and vitamin D. She has been applying neosporin to the areas on her legs but has not been wearing compression. She tries to elevated her legs but has a lot of back pain due to her spinal stenosis. She was started on Clindamycin on 09/19/17 after being seen in the ER for her legs. She c/o severe pain out of proportion to her wounds/ulcers as well as the visualized areas of induration on her thighs and abdomen. Has tried hydrocodone-APAP and Oxycodone-APAP as given by the ER and her PCP without relief. She sees Dr. Carbajal for pain management for her spinal stenosis but has not taken any medication or needed medication for her pain in the past. Epidurals have been effective for her spinal stenosis and sciatica in the past. Denies fever or chills. Past Medical History Past Medical History: Chronic Problems Hypertension (Chronic) Type 2 diabetes mellitus (Chronic) Atrial fibrillation (Chronic) Lung nodule (Chronic) Coumadin-induced coagulopathy (Chronic) Chronic kidney disease, stage 3 (Chronic) 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 calciphylaxis vs. erythema nodosum vs. dermatomyositis vs. panniculitis Mass of soft tissue of right lower extremity (Chronic) right inner upper thigh - ? calciphylaxis vs. erythema nodosum vs. dermatomyositis vs. panniculitis Surgical History: cataract, cholecystectomy, hysterectomy, - - Cardioversion, lumpectomy, [place] fundoplication, multiple ablation procedures to heart Allergies/Adverse Reactions: Allergies amlodipine besylate [From Norvasc] Allergy (Verified 06/28/17 16:49) Unknown Shortness of breath ceftriaxone Allergy (Verified 06/28/17 16:49) Rash doxazosin mesylate [From Cardura] Allergy (Verified 06/28/17 16:49) Unknown Pt doesn't remember doxycycline Allergy (Verified 06/28/17 16:49) Unknown Pt doesn't remember enalapril maleate [From Vasotec] Allergy (Verified 06/28/17 16:49) Rash enalaprilat dihydrate [From Vasotec] Allergy (Verified 06/28/17 16:49) Rash hydroxyzine HCl [From Vistaril] Allergy (Verified 06/28/17 16:49) Rash hydroxyzine pamoate [From Vistaril] Allergy (Verified 06/28/17 16:49) Rash meperidine HCl [From Demerol] Allergy (Verified 06/28/17 16:49) Rash Sulfa (Sulfonamide Antibiotics) Allergy (Verified 06/28/17 16:49) Hives sulfamethoxazole [From Bactrim] Allergy (Verified 06/28/17 16:49) Hives trimethoprim [From Bactrim] Allergy (Verified 06/28/17 16:49) Hives Home Medications: Ambulatory Orders Medication Instructions Recorded Metformin HCl [Glucophage] 500 mg PO DAILY 09/09/15 - Family History Maternal No pertinent history Paternal No pertinent history Lives: Spouse/ Significant Other Smoking Status: Never smoker Tobacco Use: Non-smoker Alcohol: None Drugs: None Review of Systems Constitutional: Reports: Weakness, Fatigue. Denies: Chills, Fever, Weight Change Eyes: Denies: Pain, Vision Change HEENT: Reports: Difficulty Hearing Cardiovascular: Reports: Palpitations Respiratory: Denies: Cough, Shortness of Breath Gastrointestinal: Denies: Diarrhea, Nausea, Vomiting Genitourinary: Reports: Incontinence Musculoskeletal: Reports: Back Pain, Joint Pain, Joint stiffness, Leg Pain, Muscle pain Skin: Reports: Rash, Skin Changes, Wounds Neurological: Reports: Numbness. Denies: Focal weakness Endocrine: Denies: Heat/ Cold Intolerance, Polydipsia, Polyuria Hematologic/ Lymphatic: Reports: Easy Bruising - Physical Exam Vital Signs Temp Pulse Resp BP 97.1 F L 102 H 20 H 141/83 H 09/22/17 14:46 09/22/17 14:46 09/22/17 14:46 09/22/17 14:46 General: Alert, Oriented x3, Cooperative, No apparent distress HEENT: Atraumatic, Normocephalic Oral: Moist Mucosa Neck: Supple Lungs: Clear to auscultation Cardiovascular: No murmurs, Irregular Rate Abdomen: Soft, Obese, - - lower abdomen, indurated, erythematous soft tissue that is tender to palpation - ?panniculitis vs. calciphylaxis vs. dermatomyositis Extremities: Cool, Diminished Peripheral Pulses, Edema, Tenderness, - - indurated, erythematous subcutaneous masses b/l upper thighs Skin: Ulcer/ Wound, Rash Present Wound Measurements and Assessment WC - Nurse 1 - General Ulcer Measurement Start: 09/22/17 13:49 Freq: Status: Active Protocol: Activity Type Activity Date Activity User E-Sign Co-Sign Detail Recorded Client Recorded Date Recorded By Document 09/22/17 14:46 MW [id number] 09/22/17 15:06 MW Wound Center Nurse 1 [Ulcer Assessment Protocol: WC.WD.LOC] #2 Left calf -Combined with other wound No -Current Size (cm) - Length 0.5 -Current Size (cm) - Width 0.5 WC - Nurse 2 - General Ulcer CM Notes Start: 09/22/17 13:49 Freq: Status: Active Protocol: Activity Type Activity Date Activity User E-Sign Co-Sign Detail Wound Center Nurse 2 [Procedure/Treatment] #2 Left calf -Time 16:55 -Correct Patient Yes Musculoskeletal: Arthritic Changes, Tenderness Psych/Mental Status: Normal Affect, Appropriate Debridement Note Post-Debridement Measurements/Treatment WC - Nurse 2 - General Ulcer CM Notes Start: 09/22/17 13:49 Freq: Status: Active Protocol: Activity Type Activity Date Activity User E-Sign Co-Sign Detail Wound debrided: left calf Laterality: Left No debridement was completed today - Additional Wound Wound debrided: right medial LE cluster Laterality: Right Type of Debridement: Excisional debridement Anesthesia Used: 4% Lidocaine Solution, 5% Lidocaine Gel Depth: Down to and including healthy tissue, in the subcutaneous layer Percentage of wound debrided: 100 Instrument Used: 5mm curette Tissue Removed: yellow slough, devitalized tissue Severity: Fat Layer Exposed Amount of bleeding with debridement: Mild Bleeding Controlled with: Pressure Patient tolerated procedure: Patient did not tolerate procedure well - was very painful for patient, out of proportion to procedure Assessment/Plan Active Problems Type 2 diabetes mellitus (Chronic) Coumadin-induced coagulopathy (Chronic) Chronic kidney disease, stage 3 (Chronic) 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 calciphylaxis vs. erythema nodosum vs. dermatomyositis vs. panniculitis Mass of soft tissue of right lower extremity (Chronic) right inner upper thigh - ? calciphylaxis vs. erythema nodosum vs. dermatomyositis vs. panniculitis Assessment: venous ulcers of b/l LE due to venous insufficiency. ? calciphylaxis vs. erythema nodosum vs. dermatomyositis vs. panniculitis of abdomen and thighs b/l Plan: Aminatas wounds were evaluated and debrided today as well as the indurated areas present on her inner thighs and abdomen. Her pain is out of proportion to the extent of her wounds on exam. Her venous ulcers are very small in size and not very deep. She will complete course of clindamycin prescribed by ER. Will dress her wounds with Aquacel Ag and adaptic and use tubigrips for light compression. Last A1C was 6.5% 05/24/17. Labs ordered to evaluate for possible causes of her indurated areas on thighs and abdomen to r/o rheumatologic causes, other possibile things to consider would be early calciphylaxis or other vasculitis. Prescription given for Oxycodone 10 mg 1 orally every 4 hours PRN pain #60 to get her to her appointment with Dr. Carbajal on Monday. OARRS was appropriate and there are no signs of abuse or diversion. No further prescriptions for pain medications will be given to her from wound center per our policy. She has follow up with Dr. Pelaez end of September, follow up with Dr. Almonte in [address] Carbajal on Monday. Encouraged her to elevated legs as much as possible and call if increased drainage or changes in wounds. F/U in 1 week. 09/22/171952 <Electronically signed by Meche Delvalle DO> Date Meche Delvalle DO CC: Signed VENOUS DUPLEX LOWER Observed: 09/20/2017 Status: F Source: [place] EXTREMITY 8:59 PM [facility] REPOSITORY [facility] Cardiovascular Services [address] [address] Venous Duplex US - J[facility] 09/19/17 1133 MR#: [id number] Acct: [id number] Name: DI ZAPATA Rep #: [id number] : 1945 71 From: Nura Canas MD Attending Dr: Status: DEP ER Ordering Dr: Christen Prado MD Date: 09/19/17 Location: ED Sex: F C Admitted: Reason For Study: swelling RIGHT LEFT GSV is normal. GSV is normal. CFV is compressible, spontaneous, phasic, CFV is compressible, spontaneous, phasic, competent and demonstrates normal competent, and demonstrates normal augmentation. augmentation. FV is compressible, spontaneous, phasic, FV is compressible, spontaneous, phasic, competent and demonstrates normal competent and demonstrates normal augmentation. augmentation. POP V is compressible, spontaneous, phasic, POP V is compressible, spontaneous, phasic, competent and demonstrates normal competent and demonstrates normal augmentation. augmentation. T/P Trunk is compressible. T/P Trunk is compressible. PTV is compressible. PTV is compressible. RT PerV is compressible. LT PerV is compressible. Procedure Exam performed portable in ED. The exam was of fair technical quality due to painfull legs.. Color flow only in the L mid and dist FV due to leg pain. A preliminary report was called and/or faxed to Dr. Prado. Interpretation Summary Deep veins of the lower extremities are bilaterally patent and compressible segmentally. There is no evidence of deep vein thrombosis on either side. Valvular competence appears intact within the proximal deep venous systems bilaterally. The greater saphenous veins appear bilaterally patent and compressible segmentally. Ordering Physician: Christen Prado Performed By: Carlos Dykes Bria 09/20/172057 Date Nura Canas MD CC: Christen Prado MD; Aaron Tidwell MD Date Dictated: 09/19/17 1133 Date Transcribed: 09/20/172057 Oxyacetylene Cutter: Signed EMERGENCY DEPARTMENT Observed: 09/19/2017 Status: F Source: [place] SUMMARY 6:36 PM [facility] REPOSITORY [facility] Medical Records Department [address] [place] [address] Emergency Department Summary 09/19/17 1234 MR#: [id number] Acct: [id number] Name: DI ZAPATA Rep #: [id number] : 1945 71 From: Christen Prado MD PCP: Aaron Tidwell MD Status: DEP ER - ER Visit Summary Date of Service: 09/19/17 Chief Complaint: Right leg wound History of Present Illness: The patient is a 71 F medial right lower leg since April. She reports redness and streaking up her medial thigh. She was seen by her vascular surgeon last week and an ultrasound of her legs was scheduled for next month. Patient also has an appointment upcoming at the wound center later this week. She is complaining of significant pain and is currently taking Meriden. She does have a history of atrial fibrillation and is currently on Coumadin. Physical Examination: Blood pressure is 161/77, otherwise vitals are normal. Patient sitting upright in bed in no acute distress. Heart is regular rate and rhythm. Lung sounds are clear. Abdomen is soft and nontender. Lower extremity examination reveals 3 scabbed areas to the medial right lower leg with surrounding erythema and warmth. There is a lymphangitic streak along the medial right leg. She also has some erythema and a medial lymphangitic streak on the left leg as well although no wound is noted here. Test Results: CBC was normal white count. Hemoglobin is 9.9. Chemistry studies reveal BUN 25 and a creatinine 1.67 which is consistent with her baseline. Her INR is 3.2. Emergency Department Course and Treatment: Venous ultrasound of the legs reveals no sign of clot. At this time I do feel the patient should be on antibiotics. Due to her multiple allergies, she is placed on clindamycin. I did advise her that this will likely increase her INR. I spoke with the nursing staff at Dr. Childers's office to manage her Coumadin for her. She is to have her INR rechecked in 3 days. Has an appointment with the wound center in 3 days as well. Treatment Plan: [] Disposition: Discharge Impression: Cellulitis right lower extremity This note was generated with [employer] dictation software. It may contain incorrect words, spelling, and punctuation that were not noted in review of the chart prior to signing ED Disposition - Plan for ED Patient: Disposition: Home or Assisted Living Chief Complaint: Wound Instructions: ED Infec Skin Cellulitis Prescriptions: Oxycodone HCl/Acetaminophen [Percocet 5/325] 1 tablet PO Q6H PRN PRN #12 tablet PRN Reason: Pain Clindamycin [Cleocin] 300 mg PO 4X/DAY #80 capsule Referrals: Aaron Tidwell MD [Primary Care Provider] - 1 Week Additional Instructions: Follow-up in Wound Center on Monday as scheduled. What to do if you have Problems For any increased pain, shortness of breath, bleeding, nausea or vomiting, chest pain, or any unexpected problems, contact your Primary Care Provider. Call [facility] ([phone]) or report to the closest Emergency Room. Call 911 if necessary. 09/19/17 1836 <Electronically signed by Christen Prado MD> Date Christen Prado MD Cosigner Signature (If Indicated): Date CC: Aaron Tidwell MD DISCHARGE INSTRUCTION Observed: 09/19/2017 Status: F Source: [place] 12:37 PM [facility] REPOSITORY [facility] Medical Records Department [address] [place] [address] Discharge Instruction 09/19/17 1235 MR#: [id number] Acct: [id number] Name: DI ZAPATA Rep #: [id number] : 1945 71 From: Christen Prado MD PCP: Aaron Tidwell MD Status: REG ER ED Disposition - Plan for ED Patient: Disposition: Home or Assisted Living Chief Complaint: Wound Instructions: ED Infec Skin Cellulitis Prescriptions: Oxycodone HCl/Acetaminophen [Percocet 5/325] 1 tablet PO Q6H PRN PRN #12 tablet PRN Reason: Pain Clindamycin [Cleocin] 300 mg PO 4X/DAY #80 capsule Referrals: Aaron Tidwell MD [Primary Care Provider] - 1 Week Additional Instructions: Follow-up in Wound Center on Monday as scheduled. What to do if you have Problems For any increased pain, shortness of breath, bleeding, nausea or vomiting, chest pain, or any unexpected problems, contact your Primary Care Provider. Call [facility] ([phone]) or report to the closest Emergency Room. Call 911 if necessary. 09/19/17 1237 <Electronically signed by Christen Prado MD> Date Christen Prado MD Cosigner Signature (If Indicated): Date CC: Aaron Tidwell MD PROTHROMBIN TIME W/INR Collected: 09/19/2017 Status: F Source: [place] 11:55 AM [facility] REPOSITORY Order Comment: SPECIMEN TO BE REDRAWN BY LAB. DRAWN 2X BY ER-HEMOLYZED TYPE CODE TESTS RESULT OUT OF RANGE REFERENCE UNITS LAB L300.4150 11.7-14.9 SECONDS High PROTIME 31.7 LAB L300.4200 Normal INR 3.2 Performed By: #### L300.3900 #### [facility] [address] [place], [address] BASIC METABOLIC Collected: 09/19/2017 Status: F Source: [place] PROFILE (BMP) 11:28 AM [facility] REPOSITORY TYPE CODE TESTS RESULT OUT OF RANGE REFERENCE UNITS LAB L501.0100 70-110 mg/dL Normal GLU 83 LAB L501.1000 7-18 mg/dL High BUN 25 LAB L501.1100 0.55-1.02 mg/dL High 1.67 CREAT,SERUM Result Comment: The validity of the calculated GFR AND GFRAA in patients over 70 years has not been determined. Clinical correlation is essential. LAB L501.1110 >60 mL/min Low EST GFR 32 Result Comment: Non- GFR Calc LAB L501.1115 >60 mL/min Low EST GFR - AA 39 Result Comment: GFR Calc LAB L501.1255 ml/min Normal Estimated CRCL 25.93 LAB L501.1300 10-20 RATIO Normal BUN/CRE 15.0 LAB L501.2200 8.5-10 mg/dL High .1 CA 10.2 LAB L501.5300 136-14 mmol/L Normal 5 NA 140 LAB L501.5600 3.5-5. mmol/L Normal 1 K 4.3 Result Comment: Moderate Hemolysis, Result may be falsely increased. LAB L501.5900 98-107 mmol/L Normal CL 106 LAB L501.6100 21.0-32.0 mmol/L Normal CO2 26.0 LAB L501.6200 5-15 Normal 8 GAP Performed By: #### L500.2500 #### [facility] [place], [address] CBC W/DIFF, AUTOMATED Collected: 09/19/2017 Status: F Source: [place] 11:06 AM [facility] REPOSITORY TYPE CODE TESTS RESULT OUT OF RANGE REFERENCE UNITS LAB L100.1000 4.4-11.0 K/mm3 Low WBC 3.8 LAB L100.1200 4.2-5.4 M/mm3 Normal RBC 4.59 LAB L100.1300 12.0-15.0 g/dl Low HGB 9.9 LAB L100.1400 37-47 % Low HCT 33.2 LAB L100.1500 81-99 fL Low MCV 72.3 LAB L100.1600 27.0-32.0 pg Low MCH 21.6 LAB L100.1700 32-36 g/gl Low MCHC 29.8 LAB L100.1810 11.6-14.6 % High RDW CV 18.7 LAB L100.1820 35.1-43.9 fl High RDW SD 48.9 LAB L100.1900 150-450 K/mm3 Normal PLT 207 LAB L100.2000 6.2-12.0 fl Normal MPV 10.3 LAB L100.2100 47-70 % Low NEUT% 41.0 LAB L100.2200 19-41 % Normal LY% 35.4 LAB L100.2300 0-10 % High MONO% 20.4 LAB L100.2400 0-5 % Normal EO% 2.6 LAB L100.2500 0-1 % Normal BASO% 0.3 LAB L100.2550 0.0-0.9 % Normal IM GRAN % 0.300 Result Comment: IG% - Immature Granulocytes (promyelocytes, myelocytes and metamyelocytes) > 1% indicates that a LEFT SHIFT is Present. LAB L100.2620 2.0-7.7 X10 3/uL Low Absolute Neut 1.6 LAB L100.2720 0.83-4.51 X10 3/ul Absolute Lymph Normal 1.34 LAB L100.4500 SMEAR COMMENT Normal SCAN LAB L100.7300 ANISO Normal 1+ LAB L100.7600 HYPOCHROMASIA Normal 1+ LAB L100.7700 MICROCYTES Normal 1+ Performed By: #### L100.0100 #### [facility] [place], [address] OBSOLETE Observed: 09/13/2017 Status: COMPLETED Source: [place] 12:00 AM [facility] REPOSITORY Refill (INTMWS) DI ZAPATA ([id number]) 1945 F Date Time Provider Department 09/13/17 AARON TIDWELL INTMWS During your visit today, we recorded the following information about you: Fidel Marcelina 09/13/2017 11:21 AM Signed Patient calls requesting refill of Meriden; has 4 pills left. Says is only getting about 2 hours pain relief with each pill taken. Saw vascular, Dr Pelaez, today, and he has referred her to wound center. Last ov 08/23/17 with Millicent; next 11/15/17 with pcp Last rx 09/05/17 #21 Aaron Tidwell MD 09/13/2017 1:26 PM Signed I recall she sees Dr. Carbajal for pain management. I suggest she revisit with Dr. Carbajal. Schedule follow up in 3 weeks. Peace Karimi LPN 09/13/2017 3:20 PM Signed This will be in medical records today after 4pm. Appt arranged. Pt is seeing Dr. Cobian 09/27/17. Allergies As of Date: 09/13/2017 Noted Allergy Reaction BACTRIM (SULFAMETHOXAZOLE-TRIMETH*06/29/2007 2 - Rash CARDURA (DOXAZOSIN) 04/24/2013 16 - Unknown CEFTRIAXONE 08/10/2017 14 - Other: See Comments Comments: Veins turned red DEMEROL (MEPERIDINE (PF)) 04/18/2006 DOXYCYCLINE 04/18/2006 NORVASC (AMLODIPINE BESYLATE) 04/06/2011 7 - Swelling SULFA (SULFONAMIDE ANTIBIOTICS) 07/04/2005 2 - Rash VASOTEC (ENALAPRIL MALEATE) 04/18/2006 3 - Cough VISTARIL (HYDROXYZINE HCL) 04/18/2006 Date Reviewed: 08/23/2017 Reviewed by: Veronique Powell 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 Assessed Reason for Visit: Refill Request [94] Primary Visit Diagnosis:Bilateral leg pain [M79.604, M79.605] Other Visit Diagnosis:Venous insufficiency (chronic) (peripheral) [I87.2] Order(s):HYDROcodone-acetaminophen (NORCO) 5-325 mg per tabletTake 1 tablet by mouth every 8 hours as needed for Pain for up to 7 days. Earliest Fill Date: 09/13/17Disp: 21 tabletRfl: 0 Prescriptions as of 09/13/2017 Sig: HYDROCODONE 5 MG-ACETAMINOPHE* Take 1 tablet by mouth every * FUROSEMIDE 20 MG TABLET Take 1 tablet by mouth every * ASPIRIN 81 MG TABLET,DELAYED * Take 1 tablet by mouth once d* WARFARIN 5 MG TABLET Take 5 mg daily (per * METOPROLOL TARTRATE 25 MG TAB* Take 0.5 tablets by mouth twi* METFORMIN 500 MG TABLET Take 1 tablet by mouth daily * COMPOUNDED PRESCRIPTION Thigh High Compression Stocki* Problem List As Of Date 09/13/2017 Noted Resolved Hypertension goal BP (blood pressure) < 150/90 *INVALID FOR* More... Rheumatoid arthritis of multiple sites with neg*INVALID FOR* More... 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 Other diseases of lung, not elsewhere classifie*INVALID FOR*02/11/2015 More... SLEEP APNEA NOS [G47.30] INVALID FOR*04/18/2006 Obesity, unspecified [E66.9] INVALID FOR*02/11/2015 Impaired fasting glucose [R73.01] INVALID FOR*02/27/2012 More... 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] INVALID FOR*02/11/2015 Candidal intertrigo [B37.2] INVALID FOR*02/11/2015 Intertrigo [L30.4] INVALID FOR*02/11/2015 Eczema Dermatitis and Other Eczema, due to Unsp*INVALID FOR*09/28/2016 Diabetes mellitus (HCC) [E11.9] INVALID FOR*01/05/2015 Venous insufficiency [I87.2] INVALID FOR*07/15/2015 Edema [R60.9] INVALID FOR*02/11/2015 Pain in joint, shoulder region [M25.519] INVALID FOR*02/11/2015 Disorders of bursae and tendons in shoulder reg*INVALID FOR*09/28/2016 Diabetes mellitus type 2, controlled [E11.9] INVALID FOR*02/11/2015 DM (diabetes mellitus), type 2 (HCC) [E11.9] INVALID FOR*07/15/2015 Venous insufficiency (chronic) (peripheral) [I8*INVALID FOR* More... Atrial fibrillation (HCC) [I48.91] INVALID FOR* More... Type 2 diabetes mellitus with diabetic chronic *INVALID FOR*01/06/2016 Lymphedema, not elsewhere classified [I89.0] INVALID FOR*05/17/2017 Type 2 diabetes mellitus with stage 3 chronic k*INVALID FOR* More... Pulmonary nodule [R91.1] INVALID FOR* More... Systolic congestive heart failure (HCC) [I50.20]INVALID FOR* More... Hydronephrosis [N13.30] INVALID FOR* UI (urinary incontinence) [R32] INVALID FOR* Patent ductus arteriosus [Q25.0] INVALID FOR* More... S/P Maze operation for atrial fibrillation [Z98*INVALID FOR* More... CKD (chronic kidney disease) stage 3, GFR 30-59*INVALID FOR* More... Anemia, unspecified [D64.9] INVALID FOR* Hypoxemia requiring supplemental oxygen [R09.02*INVALID FOR* Hypercalcemia [E83.52] INVALID FOR* Hypervitaminosis D (rule out granulomatous dise*INVALID FOR* Prescriptions ordered this encounter Disp Refills Start End HYDROCODONE 5 MG-ACETAMINOPHEN 325 M* 21 t* 0 09/13/2017 09/20/2017 Class: Print RX Route: ORAL Sig: Take 1 tablet by mouth every 8 hours as needed for Pain for up to 7 days. Earliest Fill Date: 09/13/17 Medications Discontinued During This Encounter HYDROcodone-acetaminophen (NORCO) 5-* 21 t* 0 09/05/2017 09/13/2017 Class: Print RX Route: ORAL Sig: Take 1 tablet by mouth every 8 hours as needed for Pain. Disc: Reason for discontinue is not on file. Encounter Status:Closed by PEACE KARIMI LPN on 09/13/17 ALLERGIES ALLERGIES DATE TYPE / CODE NAME / CODE REACTION SEVERITY SOURCE 08/17/2018 Drug enalapril Rash Unknown [place] Allergy/416 maleate/[id number] [facility] 661308([facility] ED CT) Repository 08/17/2018 Drug hydroxyzine Rash Unknown [place] Allergy/416 HCl/[id number](RXN [place] [id number] ED CT) Repository 08/17/2018 Drug hydroxyzine Rash Unknown [place] Allergy/416 pamoate/[id number] [place] [id number]([facility] ED CT) Repository 08/17/2018 Drug meperidine Rash Unknown [place] Allergy/416 HCl/[id number](RXN [place] [id number] [place] [address]) Repository 08/17/2018 Drug doxazosin Other Unknown [place] Allergy/416 mesylate/[id number] [facility] 749433([facility] ED [facility]) Repository 08/17/2018 Drug amlodipine Unknown Unknown [place] Allergy/416 besylate/[id number] [facility] 592220([facility] ED CT) Repository 08/17/2018 Drug enalaprilat Rash Unknown [place] Allergy/416 dihydrate/[id number] [facility] 642886([facility] ED CT) Repository 08/17/2018 Drug Sulfa (Sulfonamide Hives Unknown [place] Allergy/416 Antibiotics)/F0010 [facility] 706170([facility] ED CT) Repository 08/17/2018 Drug doxycycline/L99246 Unknown Unknown [place] Allergy/416 2748(RXNORM) [facility] 844738([facility] ED CT) Repository 08/17/2018 Drug sulfamethoxazole/F Hives Unknown [place] Allergy/416 [id number](RXNORM) [facility] 664500([facility] ED CT) Repository 08/17/2018 Drug trimethoprim/F0060 Hives Unknown [place] Allergy/416 14191(RXNORM) [facility] 359923([facility] ED CT) Repository 08/17/2018 Drug doxazosin/A0412106 Unknown Unknown [place] Allergy/416 93(RXNORM) [facility] 501977([facility] ED CT) Repository 08/17/2018 Drug ceftriaxone/U87339 Rash Unknown [place] Allergy/416 4849(RXNORM) [facility] 422991([facility] ED CT) Repository 08/10/2017 DRUG CEFTRIAXONE OTHER: SEE C [facility] INGREDI/419 [address] [place] 022140(SNOM Repository ED CT) 04/24/2013 DRUG DOXAZOSIN UNKNOWN [facility] INGREDI/419 [address] [place] 326209(SNOM Repository ED CT) 04/06/2011 DRUG AMLODIPINE SWELLING [facility] INGREDI/419 BESYLATE [facility] [place] 448021(SNOM Repository ED CT) 06/29/2007 DRUG/986744 SULFAMETHOXAZOLE-T RASH [facility] 003(SNOMED RIMETHOPRIM [facility] [place] [facility]) Repository 04/18/2006 DRUG/805663 MEPERIDINE (PF) [facility] 003(SNOMED [facility] [place] [facility]) Repository 04/18/2006 DRUG DOXYCYCLINE [facility] INGREDI/419 [address] [place] 152109(SNOM Repository ED CT) 04/18/2006 DRUG ENALAPRIL MALEATE COUGH [facility] INGREDI/419 [address] [place] 259714(SNOM Repository ED CT) 04/18/2006 DRUG HYDROXYZINE HCL [facility] INGREDI/419 [address] [place] 413940(SNOM Repository ED CT) 07/04/2005 Drug SULFA (SULFONAMIDE RASH [facility] Class/40308 ANTIBIOTICS) [place] 1003(SNOMED Repository CT) ENCOUNTERS ENCOUNTERS ADMIT/DISCHARGE ACCOUNT ADMITTING ENCOUNTER LOCATION SOURCE NUMBER CLASS 09/10/2018 [id number] [facility] ing:LAB.FUTUR Repository E 09/05/2018 [id number] Ambulatory [facility] ing:WC Repository 09/05/2018 [id number] Ambulatory [facility] ing:LAB.FUTUR Repository E 09/03/2018 [id number] [facility] ing:PSN Repository 08/29/2018 [id number] Ambulatory [facility] Repository 08/28/2018 [id number] Ambulatory [facility] ing:PSN Repository 08/23/2018 [id number] [facility] Repository 08/22/2018/08/24/20 [id number] Ambulatory [place] [facility] Hospital ing:WC Repository 08/21/2018 [id number] [facility] ing:MEDOUTP Repository 08/20/2018/08/20/20 [id number] Ambulatory [place] HospitalBuild Hospital ing:ENRoom: Repository AC15 08/20/2018/08/20/20 [id number] Ambulatory BMSBuilding:B [place] [address] MS.[facility] Repository 08/13/2018 [id number] [facility] ing:MEDOUTP Repository 08/08/2018/08/08/20 [id number] Ambulatory BMSBuilding:B [place] 18 MS.[facility] Repository 08/07/2018/08/07/20 [id number] Ambulatory BMSBuilding:B [place] [facility] Repository 08/07/2018 [id number] [facility] ing:MEDOUTP Repository 08/01/2018/08/01/20 [id number] Ambulatory BMSBuilding:B [place] [address] [facility] Repository 07/31/2018 [id number] [facility] ing:MEDOUTP Repository 07/26/2018/07/26/20 [id number] Ambulatory [address] [place] Repository 07/26/2018/07/27/20 [id number] Ambulatory [address] [place] Repository 07/25/2018/07/25/20 [id number] Ambulatory [place] [facility] Hospital ing:WC Repository 07/24/2018 [id number] [facility] ing:MED[facility]P Repository 07/16/2018 [id number] [facility] ing:MED[facility]P Repository 07/11/2018 [id number] [facility] ing:MED[facility]P Repository 07/09/2018 [id number] [facility] Repository 07/03/2018/07/03/20 [id number] Ambulatory [place] [address] HospitalBuild Hospital ing:SDCRoom: Repository AC15 07/02/2018 [id number] [facility] ing:MED[facility]P Repository 06/28/2018 [id number] [facility] ing:[facility]P Repository 06/28/2018 [id number] [facility] ing:LAB.FUTUR Repository E 06/27/2018/06/28/20 [id number] Ambulatory [address] Repository 06/25/2018 [id number] [facility] ing:MED[facility]P Repository 06/21/2018 [id number] [facility] ing:[facility]P Repository 06/20/2018/06/24/20 [id number] Ambulatory [place] [facility] Hospital ing: Repository 06/18/2018 [id number] [facility] ing:MED[facility]P Repository 06/14/2018 [id number] [facility] ing:MED[facility]P Repository 06/11/2018 [id number] [facility] [facility] ing:[facility]P Repository 06/07/2018 [id number] [facility] ing:MED[facility]P Repository 06/04/2018 [id number] [facility] ing:MED[facility]P Repository 06/01/2018/06/01/20 [id number] Ambulatory [place] [address] [place] [address] HospitalBuild Hospital ing:SDCRoom: Repository AC12 05/31/2018 [id number] [facility] ing:MEDOUTP Repository 05/29/2018 [id number] [facility] ing:MED[facility]P Repository 05/24/2018 [id number] [facility] ing:MED[facility]P Repository 05/23/2018/05/25/20 [id number] Ambulatory [place] Hospital[facility] Hospital ing:WC Repository 05/23/2018 [id number] [facility] ing:MED[facility]P Repository 05/23/2018/05/24/20 [id number] Ambulatory [address] Repository 05/21/2018 [id number] [facility] ing:MED[facility]P Repository 05/17/2018 [id number] [facility] ing:MED[facility]P Repository 05/14/2018 [id number] [facility] ing:MEDOUTP Repository 05/10/2018 [id number] [facility] ing:MEDOUTP Repository 05/07/2018 [id number] [facility] [place] [facility] ing:MEDOUTP Repository 05/03/2018 [id number] [facility] ing:MED[facility]P Repository 05/02/2018 [id number] [facility] 05/01/2018 [id number] [facility] ing:LAB Repository 04/30/2018 [id number] [facility] ing:MEDOUTP Repository 04/26/2018 [id number] [facility] ing:MEDOUTP Repository 04/23/2018 [id number] [facility] ing:MEDOUTP Repository 04/19/2018 [id number] [facility] ing:MEDOUTP Repository 04/18/2018/04/24/20 [id number] Ambulatory Riddle Riddle [address] [place] [address] HospitalBuild Hospital ing:WC Repository 04/16/2018 [id number] [facility] ing:MEDOUTP Repository 04/12/2018 [id number] Ambulatory Celio Riddle [facility] HospitalBuild Hospital ing:MEDOUTP Repository 04/12/2018/04/12/20 [id number] Ambulatory BMSBuilding:B Riddle 18 [facility] Repository 04/11/2018/04/24/20 [id number] Ambulatory Riddle Riddle [address] [place] [address] HospitalBuild Hospital ing:WC Repository 04/10/2018 [id number] Ambulatory Riddle Riddle [facility] HospitalBuild Hospital ing:MEDOUTP Repository 04/10/2018/04/10/20 [id number] Ambulatory BMSBuilding:B Riddle 18 MS.[facility] Hospital Repository 04/09/2018 [id number] Ambulatory Celio Riddle [facility] HospitalBuild Hospital ing:RAD Repository 04/08/2018/04/08/20 [id number] Emergency Riddle Celio [address] [place] [address] HospitalBuild Hospital ing:ED Repository 04/04/2018 [id number] Ambulatory Riddle Riddle [facility] HospitalBuild Hospital ing:MEDOUTP Repository 03/29/2018 [id number] Ambulatory Celio Riddle [facility] HospitalBuild Hospital ing:MEDOUTP Repository 03/26/2018 [id number] Ambulatory Celio Celio [facility] HospitalBuild Hospital ing:LAB Repository 03/22/2018 [id number] [facility] ing:MEDOUTP Repository 03/21/2018/03/24/20 [id number] Ambulatory Celio Celio [address] [place] [address] HospitalBuild Hospital ing:WC Repository 03/14/2018 [id number] Ambulatory Celio Riddle [facility] HospitalBuild Hospital ing:MEDOUTP Repository 03/07/2018 [id number] Ambulatory Celio Riddle [facility] HospitalBuild Hospital ing:MEDOUTP Repository 03/05/2018 [id number] Ambulatory Riddle Riddle [facility] HospitalBuild Hospital ing:LAB.FUTUR Repository E 02/28/2018/03/24/20 [id number] Ambulatory Celio Riddle 18 [facility] HospitalBuild Hospital ing:WC Repository 02/22/2018 [id number] [facility] ing:POLAB3 Repository 02/21/2018/02/23/20 [id number] Ambulatory Riddle Riddle[address] Hospital ing:WC Repository 02/20/2018/02/21/20 [id number] Ambulatory [address] Repository 02/20/2018/02/23/20 [id number] Ambulatory [address] Repository 02/09/2018 [id number] Ambulatory BMS [facility] Repository 02/01/2018/02/23/20 [id number] Ambulatory Riddle[address] Hospital ing:WC Repository 01/31/2018 [id number] [facility]:POLAB3 Repository 01/24/2018/01/25/20 [id number] Ambulatory [address] Repository 01/17/2018/01/23/20 [id number] Ambulatory Celio[address] ing:WC Repository 01/09/2018 [id number] Ambulatory [facility] Repository 01/09/2018/01/11/20 [id number] Ambulatory [address] Repository 12/26/2017/12/27/19 [id number] Ambulatory BMSBuilding:B Celio 18 MS.A [facility] Repository 12/25/2017 [id number] [facility]LAB Repository 12/19/2017/12/20/19 [id number] Ambulatory BMSBuilding:B Riddle 18 MS.[facility] Repository 12/12/2017/01/01/20 [id number] Ari Rainey Chi Inpatient Celio Celio 18 Encounter [facility] ing:TCURoom: Repository LWA24Yuc: 1 12/11/2017 [id number] Ambulatory BMSBuilding:W Riddle [facility] Repository 12/07/2017/12/13/19 [id number] [facility], Inpatient Riddle Riddle 18 Frederic Encounter [facility] ing:PCURoom: Repository JSB537Mje: 1 12/07/2017 [id number] John, Ambulatory BMSBuilding:B Riddle Frederic MS.CF.PMW [facility] Repository 12/07/2017 [id number] Jonh, Ambulatory BMSBuilding:B Riddle Frederic MS.WIP [facility] Repository 12/07/2017 [id number] [facility], Ambulatory BMSBuilding:B Riddle Frederic MS.[facility] Repository 12/07/2017 [id number] John, Ambulatory BMSBuilding:B Celio Frederic MS.CF.[facility] Repository 12/07/2017 [id number] John, Ambulatory BMSBuilding:B Riddle Frederic MS.CF.[facility] Repository 12/07/2017 [id number] John, Ambulatory BMSBuilding:B Riddle Frederic MS.[facility] Repository 12/07/2017 [id number] [facility], Ambulatory BMSBuilding:B Riddle Frederic MS.CF.[facility] Repository 12/07/2017 [id number] [facility], Ambulatory BMSBuilding:B Celio Smithsh MS.[facility] Repository 12/07/2017 [id number] [facility], Ambulatory BMSBuilding:B Celio Frederic MS.[facility] Repository 12/07/2017 [id number] [facility], Ambulatory BMSBuilding:B Celio Smithsh MS.[facility] Repository 12/07/2017/12/13/19 [id number] Ambulatory BMSBuilding:W Riddle 18 [facility] Repository 12/06/2017/12/24/19 [id number] Ambulatory [address] ing:WC Repository 12/04/2017/12/05/19 [id number] Emergency [address] ing:ED Repository 12/01/2017/12/02/19 [id number] Emergency [address] Hospital ing:ED Repository 11/29/2017/11/30/19 [id number] Emergency [address] Hospital ing:ED Repository 11/22/2017/11/22/19 [id number] Ambulatory [address] ing:WC Repository 11/18/2017/11/18/19 [id number] Emergency [address] Hospital ing:ED Repository 11/17/2017 [id number] Ambulatory [facility] ing:BI Repository 11/15/2017/11/17/19 [id number] Ambulatory [address] Repository 11/13/2017/11/13/19 [id number] Ambulatory [address] Hospital ing:LAB Repository 10/25/2017/10/25/19 [id number] Ambulatory [address] Hospital ing:WC Repository 10/19/2017/10/23/19 [id number] Ambulatory [address] Repository 10/18/2017 [id number] [facility] ing[facility]CVS Repository 10/18/2017 [id number] Ambulatory BMSBuilding:Paxton Pickens MS.[facility] Repository 10/17/2017/10/17/19 [id number] Ambulatory [address] Hospital ing:LAB Repository 10/11/2017/10/11/19 [id number] Ambulatory BMSBuilding:Paxton Mcgraw MS.[facility] Repository 10/11/2017 [id number] Ambulatory BMSBuilding:Paxton Pickens MS.[facility] Repository 10/10/2017 [id number] [facility] Hospital ing:POLAB3 Repository 10/07/2017/10/07/19 [id number] Emergency [address] Hospital ing:ED Repository 10/02/2017 [id number] [facility] Hospital ing:LAB.FUTUR Repository E 09/29/2017/10/04/19 [id number] Harley Livingston Inpatient [address] Hospital ing:NS2Sfpr: Repository OL407Zmj: 1 09/29/2017 [id number] Ambulatory BMSBuilding:Paxton iPckens MS.[facility] Repository 09/29/2017 [id number] Ambulatory BMSBuilding:Paxton Pickens MS.[facility] Repository 09/29/2017 [id number] Ambulatory BMSBuilding:Paxton Pickens MS.[facility] Repository 09/29/2017 [id number] Ambulatory BMSBuilding:Paxton Pickens MS.[facility] Repository 09/29/2017/10/04/19 [id number] Ambulatory BMSBuilding:W Riddle 18 [facility] Repository 09/29/2017 [id number] Ambulatory [facility] Repository 09/28/2017 [id number] [facility]:LAB Repository 09/28/2017/09/28/19 [id number] Ambulatory [address] Repository 09/26/2017/09/26/19 [id number] Emergency Celio Riddle 18 [facility] ing:ED Repository 09/22/2017/09/24/20 [id number] Ambulatory Celio Riddle[address] ing:WC Repository 09/19/2017/09/19/20 [id number] Emergency Riddle[address] ing:ED Repository PAYERS PAYERS ENCOUNTER GUARANTOR PAYER SUBSCRIBER SOURCE 09/10/2018 GERALDO Cortez Primary DI E Celio [id number] OLD Insurance:CINTHYA [facility]URCAR[facility] H[facility]PITALTD[facility]: [facility] [id number] Health Number: Repository [id number]: 330 [id number] [phone] () Date:8128-93-21RN [facility] [address] [place] [address]QO: 09/10/2018 Secondary NOT GIVENUNK Riddle Insurance:SELF PAY [facility] Number: Effective Repository Date:2018-09-10 09/05/2018 GERALDO Cortez Primary DI E Celio [id number] OLD Insurance:CINTHYA BURCARTHAGE [facility]A HOSPITALTDOB: [facility] [id number] Health Number: Repository 57580Jrf: 330 [id number] [phone] () Date:2650-05-59UU [facility] [address] [place] [address]IC: 09/05/2018 Secondary NOT GIVENUNK Riddle Insurance:SELF PAY [facility] Number: Effective Repository Date:2018-08-25 09/05/2018 GERALDO Cortez Primary DI E Riddle [id number] OLD Insurance:CINTHYA BURGETTDOB: [facility] [id number] Health Number: Repository [id number]: 330 [id number] [phone] () Date:9624-90-76MP [address] [address]DS: 09/05/2018 Secondary NOT GIVENUNK Celio Insurance:SELF PAY [facility] Number: Effective Repository Date:2018-08-06 09/03/2018 GERALDO Cortez Primary DI E Celio [id number] OLD Insurance:CINTHYA BURGETTDOB: [facility] [id number] Health Number: Repository 10633Vvf: 330 [id number] [phone] () Date:6829-96-26ZZ [address] [address]GK: 09/03/2018 Secondary NOT GIVENUNK Riddle Insurance:SELF PAY [facility] Number: Effective Repository Date:2018-08-08 08/29/2018 GERALDO Cortez Primary DI E Riddle [id number] OLD Insurance:CINTHYA BURGETTDOB: [facility] [id number] Health Number: Repository [address]Cwk: 330 [id number] [phone] () Date:0828-82-04IU [address] [address]FF: 08/29/2018 Secondary NOT GIVENUNK Riddle Insurance:SELF PAY [facility] Number: Effective Repository Date:2018-08-29 08/28/2018 GERALDO Cortez Primary DI E Celio [id number] OLD Insurance:CINTHYA BURGETTDOB: [facility] [id number] Health Number: Repository [address]Slx: 330 [id number] [phone] () Date:2093-77-63LA [facility] [place] [address]TC: 08/28/2018 Secondary NOT GIVENUNK Celio Insurance:SELF PAY [facility] Number: Effective Repository Date:2018-08-08 08/23/2018 GERALDO Cortez Primary DI E Celio [id number] OLD Insurance:CINTHYA BURGETTDOB: [facility] [id number] Health Number: Repository 78189Bhd: 330 [id number] [phone] () Date:7320-60-21LN [facility] [address] [place] [address]ZU: 08/23/2018 Secondary NOT GIVENUNK Riddle Insurance:SELF PAY [facility] Number: Effective Repository Date:2018-08-13 08/22/2018 GERALDO Cortez Primary DI E Riddle [id number] OLD Insurance:CINTHYA BURGETTDOB: [facility] [id number] Health Number: Repository [address]3836Pyw: 330 [id number] [phone] () Date:1089-69-17XD [facility] [address] [address]HM: 08/22/2018 Secondary NOT GIVENUNK Celio Insurance:SELF PAY [facility] Number: Effective Repository Date:2018-07-26 08/21/2018 GERALDO Cortez Primary DI E Celio [id number] OLD Insurance:CINTHYA BURGETTDOB: [facility] [id number] Health Number: Repository [id number]: 330 [id number] [phone] () Date:1842-04-46OZ [facility] [address] [address]XX: 08/21/2018 Secondary NOT GIVENUNK Riddle Insurance:SELF PAY [facility] Number: Effective Repository Date:2018-08-13 08/20/2018 GERALDO Cortez Primary DI E Celio [id number] OLD Insurance:CINTHYA BURGETTDOB: [facility] [id number] Health Number: Repository 66691Ycg: 330 [id number] [phone] () Date:9210-24-81RS [address] [place] [address]FI: 08/20/2018 Secondary NOT GIVENUNK Celio Insurance:SELF PAY [facility] Number: Effective Repository Date:2018-08-01 08/20/2018 GERALDO Cortez Primary DI E Riddle [id number] OLD Insurance:CINTHYA BURGETTDOB: [facility] [id number] Health Number: Repository 91081Rhb: 330 [id number] [phone] () Date:8751-76-92IC [facility] [address] [place] [address]ZG: 08/20/2018 Secondary NOT GIVENUNK Celio Insurance:SELF PAY [facility] Number: Effective Repository Date:2018-08-20 08/13/2018 GERALDO Cortez Primary DI E Riddle [id number] OLD Insurance:CINTHYA BURGETTDOB: [facility] [id number] Health Number: Repository 52441Fcy: 330 [id number] [phone] () Date:7903-98-65IF [facility] [address] [address]EU: 08/13/2018 Secondary NOT GIVENUNK Riddle Insurance:SELF PAY [facility] Number: Effective Repository Date:2018-08-07 08/08/2018 GERALDO Cortez Primary DI E Celio [id number] OLD Insurance:CINTHYA BURGETTDOB: [facility] [id number] Health Number: Repository [id number]: (971) [id number] [phone] (HP) Date:2540-63-19CX [address] [place] [address]XA: 08/08/2018 Secondary NOT GIVENUNK Celio Insurance:SELF PAY [facility] Number: Effective Repository Date:2018-08-02 08/07/2018 GERALDO Cortez Primary DI E Celio [id number] OLD Insurance:CINTHYA BURGETTDOB: [facility] [id number] Health Number: Repository 84060Uzd: 330 [id number] [phone] (HP) Date:3165-25-82LX [facility] [address] [place] [address]SC: 08/07/2018 Secondary NOT GIVENUNK Riddle Insurance:SELF PAY [facility] Number: Effective Repository Date:2018-08-07 08/07/2018 GERALDO Cortez Primary DI E Riddle [id number] OLD Insurance:CINTHYA BURGETTDOB: [facility] [id number] Health Number: Repository 59679Wwb: 330 [id number] [phone] () Date:7620-51-56EK [facility] [address] [address]DZ: 08/07/2018 Secondary NOT GIVENUNK Celio Insurance:[facility]LF [facility] Number[facility] Effective Repository Date:2018-08-07 08/01/2018 GERALDO Cortez Primary DI E Riddle [id number] OLD Insurance:CINTHYA BURGETTDOB: [facility] [id number] Health Number: Repository 52905Qkk: 330 [id number] [phone] () Date:6126-80-24UU [facility] [address] [address]YI: 08/01/2018 Secondary NOT GIVENUNK Celio Insurance:SELF PAY [facility] Number: Effective Repository Date:2018-07-31 07/31/2018 GERALDO Cortez Primary DI E Celio [id number] OLD Insurance:CINTHYA BURGETTDOB: [facility] [id number] Health Number: Repository [address]51Krd: 330 [id number] [phone] () Date:6305-17-99HC [facility] [address] [address]YA: 07/31/2018 Secondary NOT GIVENUNK Celio Insurance:SELF PAY [facility] Number: Effective Repository Date:2018-07-24 07/25/2018 GERALDO Cortez Primary DI E Celio [id number] OLD Insurance:CINTHYA BURGETTDOB: [facility] [id number] Health Number: Repository 58322Grw: 330 [id number] [phone] () Date:3126-22-63PP [address] [address]TZ: 07/25/2018 Secondary NOT GIVENUNK Riddle Insurance:SELF PAY [facility] Number: Effective Repository Date:2018-06-25 07/24/2018 GERALDO Cortez Primary DI E Celio [id number] OLD Insurance:CINTHYA BURGETTDOB: [facility] [id number] Health Number: Repository 96088Dol: 330 [id number] [phone] (HP) Date:2294-47-07JH [address] [address]LV: 07/24/2018 Secondary NOT GIVENUNK Celio Insurance:SELF PAY [facility] Number: Effective Repository Date:2018-07-18 07/16/2018 GERALDO Cortez Primary DI E Riddle [id number] OLD Insurance:CINTHYA BURGETTDOB: [facility] [id number] Health Number: Repository [id number]: 330 [id number] [phone] (HP) Date:6063-10-68AY [facility] [address] [place] [address]CM: 07/16/2018 Secondary NOT GIVENUNK Riddle Insurance:SELF PAY [facility] Number: Effective Repository Date:2018-07-10 07/11/2018 GERALDO R Primary DI E Celio [id number] OLD Insurance:CINTHYA BURGETTDOB: [facility] [id number] Health Number: Repository 14418Swo: 330 [id number] [phone] (HP) Date:7674-37-62SH [facility] [address] [place] [address]KI: 07/11/2018 Secondary NOT GIVENUNK Riddle Insurance:SELF PAY [facility] Number: Effective Repository Date:2018-07-10 07/09/2018 GERALDO R Primary DI E Riddle [id number] OLD Insurance:CINTHYA BURGETTDOB: [facility] [id number] Health Number: Repository 25554Hhy: 330 [id number] [phone] (HP) Date:1292-02-21WN [facility] [address] [place] [address]WL: 07/09/2018 Secondary NOT GIVENUNK Riddle Insurance:SELF PAY [facility] Number: Effective Repository Date:2018-07-02 07/03/2018 GERALDO R Primary DI E Riddle [id number] OLD Insurance:CINTHYA BURGETTDOB: [facility] [id number] Health Number: Repository 85515Gyh: 330 [id number] [phone] (HP) Date:3764-32-48UM [facility] [address] [address]US: 07/03/2018 Secondary NOT GIVENUNK Celio Insurance:SELF PAY [facility] Number: Effective Repository Date:2018-06-25 07/02/2018 GERALDO Cortez Primary DI E Riddle [id number] OLD Insurance:CINTHYA BURGETTDOB: [facility] [id number] Health Number: Repository 41000Nfl: 330 [id number] [phone] () Date:8177-43-73YC [facility] [address] [place] [address]MG: 07/02/2018 Secondary NOT GIVENUNK Celio Insurance:SELF PAY [facility] Number: Effective Repository Date:2018-06-28 06/28/2018 GERALDO Cortez Primary DI E Celio [id number] OLD Insurance:CINTHYA BURGETTDOB: [facility] [id number] Health Number: Repository 68893Ghz: 330 [id number] [phone] () Date:0466-81-34SN [facility] [address] [address]WE: 06/28/2018 Secondary NOT GIVENUNK Celio Insurance:SELF PAY [facility] Number: Effective Repository Date:2018-06-21 06/28/2018 GERALDO Cortez Primary DI E Riddle [id number] OLD Insurance:CINTHYA BURGETTDOB: [facility] [id number] Health Number: Repository 74461Rxm: 330 [id number] [phone] () Date:9529-60-08HA [facility] [address] [address]MY: 06/28/2018 Secondary NOT GIVENUNK Riddle Insurance:SELF PAY [facility] Number: Effective Repository Date:2018-06-28 06/25/2018 GERALDO Cortez Primary DI E Riddle [id number] OLD Insurance:CINTHYA BURGETTDOB: [facility] [id number] Peaks HospitalOPolunitypoint health[facility] Number: Repository 97186Ffo: 330 [id number] [phone] (HP) Date:7170-50-68RB [facility] [address] [place] [address]TV: 06/25/2018 Secondary NOT GIVENUNK Celio Insurance:SELF PAY [facility] Number: Effective Repository Date:2018-06-21 06/21/2018 GERALDO Cortez Primary DI E Riddle [id number] OLD Insurance:CINTHYA BURGETTDOB: [facility] [id number] Health Number: Repository 81661Hcw: 330 [id number] [phone] (HP) Date:5071-30-15BB [facility] [address] [address]YF: 06/21/2018 Secondary NOT GIVENUNK Riddle Insurance:SELF PAY [facility] Number: Effective Repository Date:2018-06-14 06/20/2018 GERALDO Cortez Primary DI E Celio [id number] OLD Insurance:CINTHYA BURGETTDOB: [facility] [id number] Health Number: Repository 21279Rus: 330 [id number] [phone] (HP) Date:1573-28-35FV [facility] [address] [place] [address]WE: 06/20/2018 Secondary NOT GIVENUNK Celio Insurance:SELF PAY [facility] Number: Effective Repository Date:2018-05-26 06/18/2018 GERALDO R Primary DI E Celio [id number] OLD Insurance:CINTHYA BURGETTDOB: [facility] [id number] Health Number: Repository 44609Nxt: 330 [id number] [phone] (HP) Date:1313-80-19XU [facility] [address] [place] [address]NQ: 06/18/2018 Secondary NOT GIVENUNK Riddle Insurance:SELF PAY [facility] Number: Effective Repository Date:2018-06-14 06/14/2018 GERALDO Cortez Primary DI E Celio [id number] OLD Insurance:CINTHYA BURGETTDOB: [facility] [id number] Health Number: Repository 75978Gmd: 330 [id number] [phone] () Date:4376-31-86JZ [facility] [address] [address]SU: 06/14/2018 Secondary NOT GIVENUNK Celio Insurance:SELF PAY [facility] Number: Effective Repository Date:2018-06-07 06/11/2018 GERALDO Cortez Primary DI E Celio [id number] OLD Insurance:CINTHYA BURGETTDOB: [facility] [id number] Health Number: Repository 59677Qop: 330 [id number] [phone] () Date:3353-36-98YI [facility] [address] [place] [address]QN: 06/11/2018 Secondary NOT GIVENUNK Celio Insurance:SELF PAY [facility] Number: Effective Repository Date:2018-06-06 06/07/2018 GERALDO Cortez Primary DI E Celio [id number] OLD Insurance:CINTHYA BURGETTDOB: [facility] [id number] Health Number: Repository 11236Jkq: 330 [id number] [phone] () Date:8538-21-22QE [facility] [address] [address]HF: 06/07/2018 Secondary NOT GIVENUNK Celio Insurance:[facility]LF [facility] Number[facility] Effective Repository Date:2018-06-06 06/04/2018 GERALDO Cortez Primary DI E Riddle [id number] OLD Insurance:CINTHYA BURGETTDOB: [facility] [id number] Health Number: Repository 19422Cnc: 330 [id number] [phone] () Date:7622-11-09TK [facility] [address] [address]ER: 06/04/2018 Secondary NOT GIVENUNK Riddle Insurance:SELF [facility]Y [facility] Number: Effective Repository Date:2018-06-04 06/01/2018 GERALDO Cortez Primary DI E Celio [id number] OLD Insurance:CINTHYA BURGETTDOB: [facility] [id number] Health Number: Repository 59317Ynq: 330 [id number] [phone] () Date:3338-37-18CM [facility] [address] [place] [address]DU: 06/01/2018 Secondary NOT GIVENUNK Celio Insurance:SELF PAY [facility] Number: Effective Repository Date:2018-05-17 05/31/2018 GERALDO Cortez Primary DI E Riddle [id number] OLD Insurance:CINTHYA BURGETTDOB: [facility] [id number] Health Number: Repository [address]8810Arj: 330 [id number] [phone] () Date:6568-40-31NF [address] [address]DG: 05/31/2018 Secondary NOT GIVENUNK Riddle Insurance:SELF PAY [facility] Number: Effective Repository Date:2018-05-24 05/29/2018 GERALDO Cortez Primary DI E Celio [id number] OLD Insurance:CINTHYA BURGETTDOB: [facility] [id number] Health Number: Repository 82731Dfq: 330 [id number] [phone] (HP) Date:0118-60-21HL [address] [address]XY: 05/29/2018 Secondary NOT GIVENUNK Riddle Insurance:SELF PAY [facility] Number: Effective Repository Date:2018-05-24 05/24/2018 GERALDO Cortez Primary DI E Riddle [id number] OLD Insurance:CINTHYA BURGETTDOB: [facility] [id number] Health Number: Repository 88508Rgh: 330 [id number] [phone] (HP) Date:2631-82-61NC [address] [address]CX: 05/24/2018 Secondary NOT GIVENUNK Riddle Insurance:SELF PAY [facility] Number: Effective Repository Date:2018-05-17 05/23/2018 GERALDO Cortez Primary DI E Celio [id number] OLD Insurance:CINTHYA BURGETTDOB: [facility] [id number] Health Number: Repository 32878Ntr: 330 [id number] [phone] () Date:9291-71-05XK [facility] [address] [address]JZ: 05/23/2018 Secondary NOT GIVENUNK Celio Insurance:SELF PAY [facility] Number: Effective Repository Date:2018-04-25 05/23/2018 GERALDO Cortez Primary DI E Celio [id number] OLD Insurance:CINTHYA BURGETTDOB: [facility] [id number] Health Number: Repository 21376Jiw: 330 [id number] [phone] (HP) Date:8159-17-21WC [facility] [address] [address]VR: 05/23/2018 Secondary NOT GIVENUNK Riddle Insurance:SELF [facility]Y [facility] Number: Effective Repository Date:2018-05-23 05/21/2018 GERALDO Cortez Primary DI E Riddle [id number] OLD Insurance:CINTHYA BURGETTDOB: [facility] [id number] Health Number: Repository 54668Rjy: 330 [id number] [phone] () Date:6580-71-26KQ [address] [address]DD: 05/21/2018 Secondary NOT GIVENUNK Riddle Insurance:SELF PAY [facility] Number: Effective Repository Date:2018-05-17 05/17/2018 GERALDO Cortez Primary DI E Riddle [id number] OLD Insurance:CINTHYA BURGETTDOB: [facility] [id number] Health Number: Repository 27624Cwz: 330 [id number] [phone] () Date:7831-48-31PV [facility] [address] [address]HT: 05/17/2018 Secondary NOT GIVENUNK Celio Insurance:SELF PAY [facility] Number: Effective Repository Date:2018-05-10 05/14/2018 GERALDO Cortez Primary DI E Riddle [id number] OLD Insurance:CINTHYA BURGETTDOB: [facility] [id number] Health Number: Repository 12434Tnb: 330 [id number] [phone] () Date:4109-17-56VJ [facility] [address] [address]EN: 05/14/2018 Secondary NOT GIVENUNK Riddle Insurance:SELF PAY [facility] Number: Effective Repository Date:2018-05-10 05/10/2018 GERALDO Cortez Primary DI E Riddle [id number] OLD Insurance:CINTHYA BURGETTDOB: [facility] [id number] Health Number: Repository 74250Vni: 330 [id number] [phone] (HP) Date:5578-29-67JP [address] [address]EC: 05/10/2018 Secondary NOT GIVENUNK Riddle Insurance:SELF PAY [facility] Number: Effective Repository Date:2018-05-09 05/07/2018 GERALDO Cortez Primary DI E Celio [id number] OLD Insurance:CINTHYA BURGETTDOB: [facility] [id number] Health Number: Repository 54255Ays: 330 [id number] [phone] (HP) Date:5496-87-05ES [address], [place] [address]QD: 05/07/2018 Secondary NOT GIVENUNK Celio Insurance:SELF PAY [facility] Number: Effective Repository Date:2018-05-04 05/03/2018 GERALDO R Primary DI E Celio [id number] OLD Insurance:CINTHYA BURGETTDOB: [facility] [id number] Health Number: Repository 51474Oxn: 330 [id number] [phone] () Date:9920-70-11YW [facility] [address] [address]KE: 05/03/2018 Secondary NOT GIVENUNK Celio Insurance:[facility]LF [facility]Y [facility] Number: Effective Repository Date:2018-04-26 05/02/2018 GERALDO R Primary DI E Celio [id number] OLD Insurance:CINTHYA BURGETTDOB: [facility] [id number] Health Number: Repository 63006Vap: 330 [id number] [phone] () Date:7973-22-97LF [address] [address]EA: 05/02/2018 Secondary NOT GIVENUNK Riddle Insurance:SELF PAY [facility] Number: Effective Repository Date:2018-04-25 05/01/2018 GERALDO Cortez Primary DI E Celio [id number] OLD Insurance:CINTHYA BURGETTDOB: [facility] [id number] Health Number: Repository 87778Tse: 330 [id number] [phone] (HP) Date:8040-87-43ZB [facility] [address] [address]KF: 05/01/2018 Secondary NOT GIVENUNK Riddle Insurance:SELF PAY [facility] Number: Effective Repository Date:2018-05-01 04/30/2018 GERALDO Cortez Primary DI E Celio [id number] OLD Insurance:CINTHYA BURGETTDOB: [facility] [id number] Health Number: Repository 31774Mtc: 330 [id number] [phone] (HP) Date:9416-52-60NX [facility] [address] [address]FE: 04/30/2018 Secondary NOT GIVENUNK Celio Insurance:SELF PAY [facility] Number: Effective Repository Date:2018-04-26 04/26/2018 GERALDO Cortez Primary DI E Celio [id number] OLD Insurance:CINTHYA BURGETTDOB: [facility] [id number] Health Number: Repository 26881Flw: 330 [id number] [phone] (HP) Date:2050-78-68KN [facility] [address] [address]XE: 04/26/2018 Secondary NOT GIVENUNK Celio Insurance:SELF PAY [facility] Number: Effective Repository Date:2018-04-19 04/23/2018 GERALDO Cortez Primary DI E Riddle [id number] OLD Insurance:CINTHYA BURGETTDOB: [facility] 3724-08-70KZLEssentia Health Number: Repository 64767Ulf: 330 [id number] [phone] (HP) Date:6512-97-71RO [address] [place] [address]TQ: 04/23/2018 Secondary NOT GIVENUNK Celio Insurance:SELF PAY [facility] Number: Effective Repository Date:2018-04-19 04/19/2018 GERALDO R Primary DI E Celio [id number] OLD Insurance:CINTHYA BURGETTDOB: [facility] [id number] Health Number: Repository 69392Bjc: 330 [id number] [phone] (HP) Date:3189-62-64AP [facility] [address] [place] [address]QR: 04/19/2018 Secondary NOT GIVENUNK Celio Insurance:SELF [facility]Y [facility] Number: Effective Repository Date:2018-04-04 04/18/2018 GERALDO R Primary DI E Celio [id number] OLD Insurance:CINTHYA BURGETTDOB: [facility] [id number] Health Number: Repository 31083Mou: (330 [id number] [phone] (HP) Date:2049-19-77AD [facility] [address] [address]AX: 04/18/2018 Secondary NOT GIVENUNK Riddle Insurance:SELF PAY [facility] Number: Effective Repository Date:2018-03-25 04/16/2018 GERALDO R Primary DI E Celio [id number] OLD Insurance:CINTHYA BURGETTDOB: [facility] [id number] [facility] Number: Repository 54337Ike: 330 [id number] [phone] (HP) Date:6738-02-51RL [facility] [address] [address]DA: 04/16/2018 Secondary NOT GIVENUNK Celio Insurance:SELF PAY [facility] Number: Effective Repository Date:2018-04-04 04/12/2018 GERALDO Cortez Primary DI E Celio [id number] OLD Insurance:CINTHYA BURGETTDOB: [facility] [id number] Stanley Hospital Number: Repository 10894Evn: 330 [id number] [phone] () Date:4511-36-17AA [address] [address]WW: 04/12/2018 Secondary NOT GIVENUNK Celio Insurance:SELF [facility]Y [facility] Number[facility] Effective Repository Date:2018-04-04 04/12/2018 GERALDO Cortez Primary DI E Celio [id number] OLD Insurance:CINTHYA BURGETTDOB: [facility] [id number] Stanley Hospital Number: Repository 12015Lqm: 330 [id number] [phone] () Date:9761-87-60UK [address] [address]NI: 04/12/2018 Secondary NOT GIVENUNK Celio Insurance:SELF PAY [facility] Number: Effective Repository Date:2018-04-12 04/11/2018 Geraldo Cortez Primary DI E Riddle [id number] OLD Insurance:CINTHYA BURGETTDOB: [facility] [id number] Health Number: Repository 49621Heb: 330 [id number] [phone] () Date:1047-13-96AI [address] [address]PU: 04/11/2018 Secondary NOT GIVENUNK Celio Insurance:SELF PAY [facility] Number: Effective Repository Date:2018-03-25 04/10/2018 Geraldo Cortez Primary DI E Celio [id number] OLD Insurance:CINTHYA BURGETTDOB: [facility] [id number] Health Number: Repository 76063Uqd: 330 [id number] [phone] (HP) Date:4779-50-07VR [address] [place] [address]UR: 04/10/2018 Secondary NOT GIVENUNK Riddle Insurance:SELF PAY [facility] Number: Effective Repository Date:2018-04-09 04/10/2018 Geraldo R Primary DI E Celio [id number] OLD Insurance:CINTHYA BURGETTDOB: [facility] 7512-30-02MFFEssentia Health Number: Repository 86042Bpu: 330 [id number] [phone] (HP) Date:5998-19-90KW [facility] [address] [address]UA: 04/10/2018 Secondary NOT GIVENUNK Riddle Insurance:SELF PAY [facility] Number: Effective Repository Date:2018-04-10 04/09/2018 Geraldo R Primary DI E Riddle [id number] OLD Insurance:CINTHYA BURGETTDOB: [facility] [id number] Health Number: Repository 58882Ygx: 330 [id number] [phone] (HP) Date:5381-44-86ZB [facility] [address] [address]YC: 04/09/2018 Secondary NOT GIVENUNK Celio Insurance:SELF PAY [facility] Number: Effective Repository Date:2018-04-04 04/08/2018 Geraldo R Primary DI E Riddle [id number] OLD Insurance:CINTHYA BURGETTDOB: [facility] [id number] Health Number: Repository 64448Hmn: 330 [id number] [phone] (HP) Date:3189-73-14RB [facility] [address] [address]GS: 04/08/2018 Secondary NOT GIVENUNK Celio Insurance:SELF PAY [facility] Number: Effective Repository Date:2018-04-08 04/04/2018 Geraldo Cortez Primary DI E Riddle [id number] OLD Insurance:CINTHYA BURGETTDOB: [facility] [id number] Health Number: Repository 99760Zth: 330 [id number] [phone] () Date:1221-18-87LT [facility] [address] [address]OU: 04/04/2018 Secondary NOT GIVENUNK Celio Insurance:SELF PAY [facility] Number: Effective Repository Date:2018-04-04 03/29/2018 Geraldo Cortez Primary DI E Riddle [id number] OLD Insurance:CINTHYA BURGETTDOB: [facility] [id number] Health Number: Repository 82933Gid: 330 [id number] [phone] () Date:3698-72-25NL [facility] [address] [address]WU: 03/29/2018 Secondary NOT GIVENUNK Riddle Insurance:SELF PAY [facility] Number: Effective Repository Date:2018-03-22 03/26/2018 Geraldo Cortez Primary DI E Riddle [id number] OLD Insurance:CINTHYA BURGETTDOB: [facility] [id number] Health Number: Repository 20514Qyd: 330 [id number] [phone] () Date:5057-23-53TO [facility] [address] [address]DC: 03/26/2018 Secondary NOT GIVENUNK Riddle Insurance:SELF PAY [facility] Number[facility] Effective Repository Date:2018-03-26 03/22/2018 Geraldo Cortez Primary DI E Riddle [id number] OLD Insurance:CINTHYA BURGETTDOB: [facility] [id number] Healthy Number: Repository 70509Swr: 330 [id number] [phone] (HP) Date:6490-79-67FU [facility] [address] [place] [address]QV: 03/22/2018 Secondary NOT GIVENUNK Celio Insurance:SELF PAY [facility] Number: Effective Repository Date:2018-03-14 03/21/2018 Geraldo Cortez Primary DI E Riddle [id number] OLD Insurance:CINTHYA BURGETTDOB: [facility] 1294-51-42IBWEssentia Health Number: Repository 82921Ohd: 330 [id number] [phone] (HP) Date:5175-83-20BW [facility] [address] [address]FW: 03/21/2018 Secondary NOT GIVENUNK Celio Insurance:SELF PAY [facility] Number: Effective Repository Date:2018-02-23 03/14/2018 Geraldo R Primary DI E Cleio [id number] OLD Insurance:CINTHYA BURGETTDOB: [facility] [id number] Health Number: Repository 86771Wow: 330 [id number] [phone] (HP) Date:1040-81-66OW [facility] [address] [place] [address]SZ: 03/14/2018 Secondary NOT GIVENUNK Celio Insurance:SELF PAY [facility] Number: Effective Repository Date:2018-03-07 03/07/2018 Geraldo R Primary DI E Celio [id number] Old Insurance:CINTHYA BURGETTDOB: [facility] [id number] City [facility] Number: Repository 81214Tqj: 330 [id number] [phone] (HP) Date:4913-16-28MJ [address] [address]HT: 03/07/2018 Secondary NOT GIVENUNK Celio Insurance:SELF PAY [facility] Number: Effective Repository Date:2018-03-06 03/05/2018 Geraldo Cortez Primary DI E Celio [id number] Old Insurance:CINTHYA BURCARTHAGE AREA HOSPITALTDOB: [facility] 1835-98-51ARAChippewa City [facility] Hospital Number: Repository 76136Hmf: 330 [id number] [phone] () Date:8997-43-13JT [facility] [address] [address]DS: 03/05/2018 Secondary NOT GIVENUNK Celio Insurance:SELF PAY [facility] Number: Effective Repository Date:2018-03-05 02/28/2018 Geraldo Cortez Primary DI E Celio [id number] Old Insurance:CINTHYA BURCARTHAGE AREA HOSPITALTDOB: [facility] [id number] City Montevideo Hospital Number: Repository 19624Osf: 330 [id number] [phone] () Date:3753-58-93BP [facility] [address] [address]ZM: 02/28/2018 Secondary NOT GIVENUNK Celio Insurance:SELF PAY [facility] Number: Effective Repository Date:2018-02-23 02/22/2018 Geraldo Cortez Primary DI E Celio [id number] Old Insurance:CINTHYA BURGETTDOB: [facility] [id number] City Montevideo Hospital Number: Repository 93724Apx: 330 [id number] [phone] () Date:8690-07-61AY [facility] [address] [address]UA: 02/22/2018 Secondary NOT GIVENUNK Riddle Insurance:SELF PAY [facility] Number: Effective Repository Date:2017-11-27 02/21/2018 Geraldo Cortez Primary DI E Riddle [id number] Old Insurance:CINTHYA BURGETTDOB: [facility] [id number] City Montevideo Hospital Number: Repository 23871Kwh: 330 [id number] [phone] (HP) Date:8954-78-60YQ [facility] [address] [place] [address]LA: 02/21/2018 Secondary NOT GIVENUNK Celio Insurance:SELF PAY [facility] Number: Effective Repository Date:2018-01-23 02/09/2018 Geraldo Cortez Primary DI E Celio [id number] Old Insurance:CINTHYA BURGETTDOB: [facility] 9467-30-69HTAChippewa City [facility] Hospital Number: Repository 72830Stq: 330 [id number] [phone] () Date:2190-56-59DT [facility] [address] [place] [address]ZW: 02/09/2018 Secondary NOT GIVENUNK Celio Insurance:SELF PAY [facility] Number: Effective Repository Date:2018-02-09 02/01/2018 Geraldo Cortez Primary DI E Riddle [id number] Old Insurance:CINTHYA BURGETTDOB: [facility] [id number] City Montevideo Hospital Number: Repository 22301Ixh: 330 [id number] [phone] () Date:1616-33-65MP [facility] [address] [place] [address]SL: 02/01/2018 Secondary NOT GIVENUNK Riddle Insurance:SELF PAY [facility] Number: Effective Repository Date:2018-01-24 01/31/2018 Geraldo Cortez Primary DI E Riddle [id number] Old Insurance:CINTHYA BURGETTDOB: [facility] 7509-25-73IFAChippewa City Montevideo Hospital Number: Repository 88003Pee: 330 [id number] [phone] (HP) Date:9678-05-22YD [address] [address]HY: 01/31/2018 Secondary NOT GIVENUNK Celio Insurance:SELF PAY [facility] Number: Effective Repository Date:2018-01-31 01/17/2018 Geraldo Cortez Primary DI E Celio [id number] Old Insurance:CINTHYA BURGETTDOB: [facility] [id number] City Montevideo Hospital Number: Repository 30751Ign: 330 [id number] [phone] (HP) Date:9032-53-59DI [facility] [address] [place] [address]TW: 01/17/2018 Secondary NOT GIVENUNK Riddle Insurance:SELF PAY [facility] Number: Effective Repository Date:2017-12-24 12/26/2017 Geraldo Cortez Primary DI E Celio [id number] Old Insurance:CINTHYA BURGETTDOB: [facility] [id number] City [facility] Number: Repository 53855Aeb: 330 [id number] [phone] () Date:2270-94-72NG [facility] [address] [address]JU: 12/26/2017 Secondary NOT GIVENUNK Celio Insurance:SELF PAY [facility] Number: Effective Repository Date:2017-12-26 12/25/2017 Geraldo Cortez Primary DI E Celio [id number] Old Insurance:CINTHYA BURGETTDOB: [facility] [id number] City Montevideo Hospital Number: Repository 84771Wju: 330 [id number] [phone] () Date:2436-37-87HF [facility] [address] [address]UP: 12/25/2017 Secondary NOT GIVENUNK Riddle Insurance:SELF PAY [facility] Number: Effective Repository Date:2017-12-25 12/19/2017 Geraldo Cortez Primary DI E Riddle [id number] Old Insurance:CINTHYA BURGETTDOB: [facility] [id number] City Montevideo Hospital Number: Repository 16599Jeh: 330 [id number] [phone] () Date:2682-50-12VQ [facility] [address] [place] [address]PK: 12/19/2017 Secondary NOT GIVENUNK Riddle Insurance:SELF PAY [facility] Number: Effective Repository Date:2017-12-19 12/12/2017 Geraldo Cortez Primary DI E Riddle [id number] Old Insurance:CINTHYA BURGETTDOB: [facility] [id number] City [facility] Hospital Number: Repository 28705Icw: 330 [id number] [phone] () Date:3890-76-21UG [facility] [address] [address]PX: 12/12/2017 Secondary NOT GIVENUNK Celio Insurance:SELF PAY [facility] Number: Effective Repository Date:2017-12-12 12/11/2017 Geraldo Cortez Primary DI E Celio [id number] Old Insurance:CINTHYA BURGETTDOB: [facility] [id number] City Montevideo Hospital Number: Repository 55705Glg: 330 [id number] [phone] () Date:7875-63-29KV [facility] [address] [address]GA: 12/11/2017 Secondary NOT GIVENUNK Celio Insurance:SELF PAY [facility] Number: Effective Repository Date:2017-12-11 12/07/2017 Geralod Cortez Primary DI E Celio [id number] Old Insurance:CINTHYA BURGETTDOB: [facility] [id number] City [facility]video [facility] Number: Repository 81304Pbh: 330 [id number] [phone] (HP) Date:9568-54-77IA [address] [address]TU: 12/07/2017 Secondary NOT GIVENUNK Celio Insurance:SELF PAY [facility] Number: Effective Repository Date:2017-12-07 12/07/2017 Geraldo Cortez Primary DI E Celio [id number] Old Insurance:CINTHYA BURGETTDOB: [facility] [id number] City [facility]video Hospital Number: Repository 53304Gfb: 330 [id number] [phone] (HP) Date:1305-36-15MD [address] [place] [address]FB: 12/07/2017 Secondary NOT GIVENUNK Riddle Insurance:SELF PAY [facility] Number: Effective Repository Date:2017-12-07 12/07/2017 Geraldo Cortez Primary DI E Celio [id number] Old Insurance:CINTHYA BURGETTDOB: [facility] [id number] City Montevideo Hospital Number: Repository 14545Tdc: 330 [id number] [phone] () Date:7050-96-24CE [facility] [address] [address]RH: 12/07/2017 Secondary NOT GIVENUNK Celio Insurance:SELF PAY [facility] Number: Effective Repository Date:2017-12-07 12/07/2017 Geraldo Cortez Primary DI E Riddle [id number] Old Insurance:CINTHYA BURGETTDOB: [facility] [id number] City Montevideo Hospital Number: Repository 41325Lcn: 330 [id number] [phone] (HP) Date:2495-66-46AI [facility] [address] [address]AI: 12/07/2017 Secondary NOT GIVENUNK Celio Insurance:SELF PAY [facility] Number: Effective Repository Date:2017-12-07 12/07/2017 Geraldo Cortez Primary DI E Riddle [id number] Old Insurance:CINTHYA BURGETTDOB: [facility] [id number] City [facility] Hospital Number: Repository 44631Fds: 330 [id number] [phone] () Date:8978-87-00CI [facility] [address] [address]WF: 12/07/2017 Secondary NOT GIVENUNK Celio Insurance:SELF PAY [facility] Number: Effective Repository Date:2017-12-07 12/07/2017 Geraldo Cortez Primary DI E Riddle [id number] Old Insurance:CINTHYA BURGETTDOB: [facility] [id number] City [facility] Number: Repository 22838Dps: 330 [id number] [phone] () Date:8628-44-56CT [address] [address]: 12/07/2017 Secondary NOT GIVENUNK Celio Insurance:SELF PAY [facility] Number: Effective Repository Date:2017-12-07 12/07/2017 Geraldo Cortez Primary DI E Celio [id number] Old Insurance:CINTHYA BURGETTDOB: [facility] [id number] City [facility] Number: Repository [address]11Ngz: 330 [id number] [phone] () Date:1992-12-95LZ [facility] [address] [address]RJ: 12/07/2017 Secondary NOT GIVENUNK Riddle Insurance:SELF PAY [facility] Number: Effective Repository Date:2017-12-07 12/07/2017 Geraldo Cortez Primary DI E Celio [id number] Old Insurance:CINTHYA BURGETTDOB: [facility] [id number] City [facility] Number: Repository 15698Atr: 330 [id number] [phone] (HP) Date:2467-26-02KH [address] [place] [address]XE: 12/07/2017 Secondary NOT GIVENUNK Riddle Insurance:SELF PAY [facility] Number: Effective Repository Date:2017-12-07 12/07/2017 Geraldo R Primary DI E Celio [id number] Old Insurance:CINTHYA BURGETTDOB: [facility] [id number] City [facility] Number: Repository [address]1734Wed: 330 [id number] [phone] (HP) Date:4385-56-46OG [facility] [address] [address]YO: 12/07/2017 Secondary NOT GIVENUNK Riddle Insurance:[facility]LF [facility] Number[facility] Effective Repository Date:2017-12-07 12/07/2017 Geraldo R Primary DI E Riddle [id number] Old Insurance:CINTHYA BURGETTDOB: [facility] [id number] City [facility] Number: Repository 89898Isg: 330 [id number] [phone] (HP) Date:9839-50-58BZ [facility] [address] [address]KK: 12/07/2017 Secondary NOT GIVENUNK Celio Insurance:SELF PAY [facility] Number: Effective Repository Date:2017-12-07 12/07/2017 Geraldo R Primary DI E Celio [id number] Old Insurance:CINTHYA BURGETTDOB: [facility] [id number] City [facility] Number: Repository 77205Wrm: 330 [id number] [phone] (HP) Date:9926-78-59DV [facility] [address] [address]IM: 12/07/2017 Secondary NOT GIVENUNK Riddle Insurance:SELF PAY [facility] Number: Effective Repository Date:2017-12-07 12/07/2017 Geraldo Cortez Primary DI E [place] [id number] Old Insurance:CINTHYA BURGETTDOB: [facility] [id number] City [facility] Number: Repository 19012Rxf: 330 [id number] [phone] () Date:2726-62-93UV [address] [address]PH: 12/07/2017 Secondary NOT GIVENUNK Riddle Insurance:SELF PAY [facility] Number: Effective Repository Date:2017-12-07 12/06/2017 Geraldo Cortez Primary DI E Celio [id number] Old Insurance:CINTHYA BURGETTDOB: [facility] [id number] City [facility] Number: Repository 99143Cmi: 330 [id number] [phone] () Date:1859-73-01TE [facility] [address] [address]HD: 12/06/2017 Secondary NOT GIVENUNK Riddle Insurance:SELF PAY [facility] Number: Effective Repository Date:2017-11-23 12/04/2017 Geraldo Cortez Primary DI E Celio [id number] Old Insurance:CINTHYA BURGETTDOB: [facility] [id number] City [facility] Number: Repository [address]10Wwc: 330 [id number] [phone] () Date:1748-01-73SO [facility] [address] [address]BH: 12/04/2017 Secondary NOT GIVENUNK Celio Insurance:SELF PAY [facility] Number: Effective Repository Date:2017-12-04 12/01/2017 Geraldo Cortez Primary DI E [place] [id number] Old Insurance:CINTHYA BURGETTDOB: [facility] [id number] City [facility] Number: Repository 43528Ina: 330 [id number] [phone] (HP) Date:1420-32-62OY [address] [place] [address], [place] [address]QJ: 12/01/2017 Secondary NOT GIVENUNK Riddle Insurance:SELF PAY [facility] Number: Effective Repository Date:2017-12-01 11/29/2017 Geraldo Cortez Primary DI E Riddle [id number] Old Insurance:CINTHYA BURPRAVEENTDOB: [facility] [id number] City [facility] Number: Repository 27460Rgp: 330 [id number] [phone] (HP) Date:1020-08-85VZ [facility] [address], [place] [address]UJ: 11/29/2017 Secondary NOT GIVENUNK Celio Insurance:SELF PAY [facility] Number: Effective Repository Date:2017-11-29 11/22/2017 DI E Primary DI E Celio [id number] OLD Insurance:CINTHYA VICTOR MTDOB: [facility] [id number] Health Number: Repository 96174Kpt: 330 [id number] [phone] (HP) Date:8939-61-70HV [facility] [address], [place] [address]FM: 11/22/2017 Secondary NOT GIVENUNK Riddle Insurance:SELF PAY [facility] Number: Effective Repository Date:2017-10-26 11/18/2017 Geraldo Cortez Primary DI E [place] [id number] Old Insurance:CINTHYA VICTOR MTDOB: [facility] [id number] City [facility] Number: Repository 68279Ooi: 330 [id number] [phone] (HP) Date:4510-34-13BJ [facility] [address] [place] [address]KW: 11/18/2017 Secondary NOT GIVENUNK Celio Insurance:SELF PAY [facility] Number: Effective Repository Date:2017-11-18 11/17/2017 DI E Primary DI E Riddle [id number] OLD Insurance:CINTHYA [facility]B: [facility] [id number] Health Number: Repository [address]70Doh: 330 [id number] [phone] () Date:4251-52-00JS [facility] [address] [address]RG: 11/17/2017 Secondary NOT GIVENUNK Riddle Insurance:SELF PAY [facility] Number: Effective Repository Date:2017-10-19 11/13/2017 DI E Primary DI E Celio [id number] OLD Insurance:CINTHYA [facility]: [facility] [id number] Health Number: Repository 6[address]47Wgu: 330 [id number] [phone] () Date:8623-16-23KR [address] [address]KV: 11/13/2017 Secondary NOT GIVENUNK Celio Insurance:SELF PAY [facility] Number: Effective Repository Date:2017-10-27 10/25/2017 Geraldo Cortez Primary DI E [place] [id number] Old Insurance:CINTHYA PR[facility]HAKARNEWARK-W[facility] HOSPITALD[facility]: [facility] [id number] City [facility] Number: Repository 79405Bgi: 330 [id number] [phone] () Date:8341-23-14RS [facility] [address] [place] [address]JA: 10/25/2017 Secondary NOT GIVENUNK Celio Insurance:SELF PAY [facility] Number: Effective Repository Date:2017-09-25 10/18/2017 DI E Primary DI E Riddle [id number] OLD Insurance:CINTHYA BURGETTDOB: [facility] [id number] Health Number: Repository [address]71Ydo: 330 [id number] [phone] () Date:9218-00-73EL [facility] [address] [place] [address]FD: 10/18/2017 Secondary NOT GIVENUNK Riddle Insurance:SELF PAY [facility] Number: Effective Repository Date:2017-09-14 10/18/2017 Di E Primary Di E Celio [id number] Old Insurance:CINTHYA BurgettDOB: [facility] [id number] City [facility] Number: Repository 42552Xss: 330 [id number] [phone] () Date:8997-79-40YF [address] [address]QS: 10/18/2017 Secondary NOT GIVENUNK Celio Insurance:SELF PAY [facility] Number: Effective Repository Date:2017-09-02 10/17/2017 Geraldo Cortez Primary DI E Celio [id number] Old Insurance:CINTHYA BURGETTDOB: [facility] [id number] City [facility] Number: Repository 60441Uzg: 330 [id number] [phone] () Date:8871-30-98NL [address] [address]UX: 10/17/2017 Secondary NOT GIVENUNK Riddle Insurance:SELF PAY [facility] Number: Effective Repository Date:2017-09-25 10/11/2017 DI E Primary DI E Celio [id number] OLD Insurance:CINTHYA BURGETTDOB: [facility] [id number] Health Number: Repository 63331Qpp: 330 [id number] [phone] (HP) Date:0225-90-75SP [facility] [address] [address]DC: 10/11/2017 Secondary NOT GIVENUNK Celio Insurance:SELF PAY [facility] Number: Effective Repository Date:2017-10-11 10/11/2017 Geraldo Cortez Primary Di E Riddle [id number] Old Insurance:CINTHYA BurgettDOB: [facility] [id number] City [facility] Number: Repository 12684Fed: 330 [id number] [phone] () Date:5001-58-80PS [facility] [address] [address]EA: 10/11/2017 Secondary NOT GIVENUNK Riddle Insurance:SELF PAY [facility] Number: Effective Repository Date:2017-10-11 10/10/2017 Geraldo Cortez Primary Di E Celio [id number] Old Insurance:CINTHYA BurgettDOB: [facility] [id number] City [facility] Number: Repository 35755Mwy: 330 [id number] [phone] () Date:5977-72-24LK [facility] [address] [address]PJ: 10/10/2017 Secondary NOT GIVENUNK Celio Insurance:SELF PAY [facility] Number: Effective Repository Date:2017-10-10 10/07/2017 Geraldo Cortez Primary Di E Celio [id number] Old Insurance:CINTHYA BurgettDOB: [facility] [id number] City [facility] Number: Repository 52821Osb: 330 [id number] [phone] () Date:5605-86-82LE [facility] [address] [address]WX: 10/07/2017 Secondary NOT GIVENUNK Riddle Insurance:SELF PAY [facility] Number: Effective Repository Date:2017-10-07 10/02/2017 Geraldo Cortez Primary NOT GIVENUNK [place] [id number] Old Insurance:CINTHYA [facility] Number: Repository 44423Woz: (330 Effective [phone] (HP) Date:8754-32-32ME [facility] [address] [address]WP: 10/02/2017 Secondary NOT GIVENUNK Riddle Insurance:[facility]LF [facility] Number: Effective Repository Date:2017-10-02 09/29/2017 Geraldo Cortez Primary Di E Riddle [id number] Old Insurance:CINTHYA BurgettDOB: [facility] 1714-16-30CPRChippewa City [facility] Number: Repository 99358Alr: 330 [id number] [phone] (HP) Date:6789-57-06CH [facility] [address] [address]OM: 09/29/2017 Secondary NOT GIVENUNK Celio Insurance:SELF PAY [facility] Number: Effective Repository Date:2017-09-29 09/29/2017 Geraldo Cortez Primary DI E Celio [id number] Old Insurance:CINTHYA BURGETTDOB: [facility] [id number] City [facility] Number: Repository 36219Swl: (330 [id number] [phone] (HP) Date:8300-63-97WW [facility] [address] [address]WJ: 09/29/2017 Secondary NOT GIVENUNK Riddle Insurance:SELF PAY [facility] Number: Effective Repository Date:2017-09-29 09/29/2017 Geraldo Cortez Primary Di E Celio [id number] Old Insurance:CINTHYA BurgettDOB: [facility] [id number] City [facility] Number: Repository 50526Plq: (330 [id number] [phone] (HP) Date:1735-42-43FZ [address] [address]QX: 09/29/2017 Secondary NOT GIVENUNK Riddle Insurance:SELF PAY [facility] Number: Effective Repository Date:2017-09-29 09/29/2017 Geraldo Cortez Primary Di E Celio [id number] Old Insurance:CINTHYA BurgettDOB: [facility] [id number] City [facility] Number: Repository 36726Hfj: 330 [id number] [phone] (HP) Date:9602-25-04WV [address] [address]KM: 09/29/2017 Secondary NOT GIVENUNK Celio Insurance:SELF PAY [facility] Number: Effective Repository Date:2017-09-29 09/29/2017 Geraldo Cortez Primary Di E Celio [id number] Old Insurance:CINTHYA BurgettDOB: [facility] [id number] City [facility] Number: Repository [id number]: 330 [id number] [phone] (HP) Date:0139-16-61XN [facility] [address] [address]LT: 09/29/2017 Secondary NOT GIVENUNK Celio Insurance:SELF PAY [facility] Number: Effective Repository Date:2017-09-29 09/29/2017 Geraldo Cortez Primary DI E Riddle [id number] Old Insurance:CINTHYA BURGETTDOB: [facility] [id number] City [facility] Number: Repository 31164Cwf: 330 [id number] [phone] (HP) Date:0010-75-22IP [facility] [address] [address]ED: 09/29/2017 Secondary NOT GIVENUNK Riddle Insurance:SELF PAY [facility] Number: Effective Repository Date:2017-09-29 09/28/2017 Geraldo Cortez Primary Di E Riddle [id number] Old Insurance:CINTHYA BurgettDOB: [facility] [id number] City [facility] Number: Repository 77731Grc: 330 [id number] [phone] () Date:5865-85-72CK [facility] [address] [address]DN: 09/28/2017 Secondary NOT GIVENUNK Riddle Insurance:SELF PAY [facility] Number: Effective Repository Date:2017-09-28 09/26/2017 Geraldo Cortez Primary Di E Celio [id number] Old Insurance:CINTHYA BurgettDOB: [facility] [id number] Medical [facility] in [facility] Number: Repository 75372Wnt: 330 [id number] [phone] () Date:3601-72-85UW [address] [address]CG: 09/26/2017 Secondary NOT GIVENUNK Riddle Insurance:SELF PAY [facility] Number: Effective Repository Date:2017-09-26 09/22/2017 Di E Primary Di E Riddle [id number] Old Insurance:CINTHYA BurgettDOB: [facility] 1795-27-61HHUChippewa City [facility] Number: Repository 30043Fsb: 330 [id number] [phone] (HP) Date:4727-41-65KG [address] [address]OI: 09/22/2017 Secondary NOT GIVENUNK Riddle Insurance:SELF PAY [facility] Number: Effective Repository Date:2017-09-22 09/19/2017 Di E Primary Di E R[place] [id number] Old Insurance:CINTHYA BurgettDOB: [facility] [id number] City [facility] Number: Repository [id number]: (423) [id number] [phone] () Date:1372-38-93LM [address] [place] [address]AO: 09/19/2017 Secondary NOT GIVENUNK Riddle Insurance:SELF PAY [facility] INS[facility]ANCE[facility] Number: Effective Repository Date:2017-09-19
== END ==
PROVIDERS: Family Provider Internal Medicine; PCP Internal Medicine; Referring Provider Nurse Practitioner Acute Care; Visit Provider Nurse Practitioner Acute Care
DX: R91.1 Solitary pulmonary nodule (principal)
CPT/HCPCS: 71260; Q9967

== ENCOUNTER → 2018-08-28 10:43 | Outpatient (CLI) | payer MEDICARE, SELFPAY ==
[2018-08-22 09:45] VITALS: BMI 35.4
[2018-08-28 11:23] VITALS: PULSE 81; PULSE 83; PULSE 85; PULSE 87; PULSE 91; PULSE 92; PULSE 93; O2SAT 93; O2SAT 95; O2SAT 96; O2SAT 97
--- NOTE | 2018-08-29 11:24 | PCM.PSN.6M ---
PSN 6 Minute Walk Test - 6 Minute Walk Test 6 Minute Walk Test: 6 Minute Walk Test PSN:6-Minute Walk Test Start: 08/28/18 11:20 Freq: Status: Active Protocol: [id number] Document 08/28/18 11:23 FR (Rec: 08/28/18 11:28 FR [id number]) 6 Minute Walk Test Date Performed 08/28/18 Time Performed 11:00 Height 5 ft 3 in Weight: 170 lb Weight in Pounds 170.0 lbs Assistive device used: None Pre-test Oxygen Delivery Method Room Air Pulse Ox (%) 97 Pulse Rate (60-100 beats/min) 81 Dyspnea Christiano Scale (0-10) 1 Exertion Christiano Scale (6-20) 6 1st minute Oxygen Delivery Method Room Air Pulse Ox (%) 96 Pulse Rate (60-100 beats/min) 85 2nd minute Oxygen Delivery Method Room Air Pulse Ox (%) 96 Pulse Rate (60-100 beats/min) 87 3rd minute Oxygen Delivery Method Room Air Pulse Ox (%) 93 Pulse Rate (60-100 beats/min) 91 4th minute Oxygen Delivery Method Room Air Pulse Ox (%) 95 Pulse Rate (60-100 beats/min) 93 5th minute Oxygen Delivery Method Room Air Pulse Ox (%) 95 Pulse Rate (60-100 beats/min) 93 6th minute Oxygen Delivery Method Room Air Pulse Ox (%) 95 Pulse Rate (60-100 beats/min) 92 Post-test Oxygen Delivery Method Room Air Pulse Ox (%) 97 Pulse Rate (60-100 beats/min) 83 Dyspnea Christiano Scale (0-10) 1 Exertion Christiano Scale (6-20) 7 Full Laps Walked 18 Partial Lap, Number of Tiles Walked 48 Total Distance Walked (ft) 1110 - Interpretation Interpretation: The patient ambulated 1110 feet over the course of 6 minutes beginning on room air without assistive devices or breaks. Pretesting oxygen saturation was noted to be 97% on room air. With ambulation, the leah oxygen saturation was 93%. This represents a significant exertional oxygen desaturation. - Recommendations Recommendations: There is no indication for the use of supplemental oxygen at this time. However, close interval follow-up is recommended, given the degree of oxygen desaturation noted during this study.
== END ==
PROVIDERS: Family Provider Internal Medicine; PCP Internal Medicine; Referring Provider Nurse Practitioner Acute Care; Visit Provider Nurse Practitioner Acute Care
DX: R06.09 Other forms of dyspnea (principal)
CPT/HCPCS: 94618

== ENCOUNTER → 2018-09-03 12:42 | Outpatient (CLI) | payer MEDICARE, SELFPAY ==
[2018-08-29 09:22] VITALS: BMI 35.4
--- NOTE | 2018-09-03 13:57 | PFTCOMP ---
COMPLETE PULMONARY FUNCTION TEST INTERPRETATION Brief HPI: Patient is a 72 year old female, currently under the care of Coleen Soto, who presents to [facility] for complete pulmonary function tests secondary to diagnosis of dyspnea. Respiratory therapist reports good effort and reproducible results. Interpretation: Forced expiration spirometry shows no large airways obstructive ventilatory defect with an FEV1 of 57% predicted. There is no significant bronchodilator response by strict ATS criteria. Spirograms are of good quality and plateau normally. The respiratory flow volume loop shows a normal pattern. Lung volumes by body plethysmography show a decreased total lung capacity at 2.7 L, 59% predicted. All other lung volumes are reduced symmetrically. Diffusion capacity by carbon monoxide is decreased at 53% predicted. The airway resistance is normal. Compared to previous pulmonary function tests from 07/11/2017, there has been a significant improvement in DLCO by 121%. Impression: Irreversible moderate restrictive ventilatory defect with a symmetric reduction diffusing capacity. There has been some improvement compared to previous testing.
--- NOTE | 2018-09-03 14:01 | PFTCOMP_ITS ---
COMPLETE PULMONARY FUNCTION TEST INTERPRETATION Brief HPI: Patient is a 72 year old female, currently under the care of Coleen Soto, who presents to [facility] for complete pulmonary function tests secondary to diagnosis of dyspnea. Respiratory therapist reports good effort and reproducible results. Interpretation: Forced expiration spirometry shows no large airways obstructive ventilatory defect with an FEV1 of 57% predicted. There is no significant bronchodilator re sponse by strict ATS criteria. Spirograms are of good quality and plateau normally. The respiratory flow volume loop shows a normal pattern. Lung volumes by body plethysmography show a decreased total lung capacity at 2.7 L, 59% predicted. All other lung volumes are reduced symmetrically. Diffusion capacity by carbon monoxide is decreased at 53% predicted. The airway resistance is normal. Compared to previous pulmonary function tests from 07/11/2017, there has been a significant improvement in DLCO by 121%. Impression: Irreversible moderate restrictive ventilatory defect with a symmetric reduction diffusing capacity. There has been some improvement compared to previous testing.
== END ==
PROVIDERS: Family Provider Internal Medicine; PCP Internal Medicine; Referring Provider Nurse Practitioner Acute Care; Visit Provider Nurse Practitioner Acute Care
DX: R06.09 Other forms of dyspnea (principal)
CPT/HCPCS: 94060; 94726; 94729

== ENCOUNTER → 2018-09-05 08:32 | Outpatient (CLI) | payer MEDICARE, SELFPAY ==
[2018-08-29 09:22] VITALS: BMI 35.4
[2018-09-05 09:59] LABS: Albumin, Serum 3.6 g/dL (3.2-5.0); BUN 30 mg/dL (7-18); BUN/Creat Ratio 27.8 RATIO (10-20); Calcium,Total 9.4 mg/dL (8.5-10.1); Chloride 103 mmol/L (98-107); Creatinine, Serum 1.08 mg/dL (0.55-1.02); EST Glomerular Filtration Rate 53 mL/min (>60); Est Glom Filt Rate - Afr Amer 64 mL/min (>60); Glucose 112 mg/dL (74-106); Phosphorus 3.5 mg/dL (2.5-4.9); Potassium 4.1 mmol/L (3.5-5.1); Sodium Level 141 mmol/L (136-145)
[2018-09-07 14:55] LABS: Vitamin D 1,25-Dihydroxy 32.5 pg/mL (19.9-79.3)
--- OUTSIDE RECORDS SUMMARY | 2018-10-22 04:08 | XMS RPT_ITS ---
:1945 Author Organization [place] Support Name Relationship Address Phone GERALDO ZAPATA Unavailable [address] + [place] [address] QUINTANA, STAR Unavailable [address] + [place] [address] R Unavailable Unavailable Unavailable GERALDO ZAPATA Unavailable [address] + [place] [address] QUINTANA, STAR Unavailable Unavailable + [place] [address] R Unavailable Unavailable Unavailable GERALDO ZAPATA Unavailable [address] + [place] [address] QUINTANA, STAR Unavailable Unavailable + [place] [address] R Unavailable Unavailable Unavailable GERALDO ZAPATA Unavailable [address] + [place] [address] QUINTANA, STAR Unavailable Unavailable + [place] [address] R Unavailable Unavailable Unavailable EMMAVIRGINIAGERALDO Unavailable [address] + [place] [address] QUINTANA, STAR Unavailable Unavailable + [place] [address] R Unavailable Unavailable Unavailable EMMAGERALDO Unavailable [address] + [place] [address] QUINTANA, STAR Unavailable Unavailable + [place] [address] R Unavailable Unavailable Unavailable EMMAGERALDO Unavailable [address] + [place] [address] QUINTANA, STAR Unavailable Unavailable + [place] [address] R Unavailable Unavailable Unavailable EMMA, GERALDO Unavailable [address] + [place] [address] QUINTANA, STAR Unavailable Unavailable + [place] [address] R Unavailable Unavailable Unavailable EMMA, GERALDO Unavailable [address] + [place] [address] QUINTANA, STAR Unavailable Unavailable + [place] [address] R Unavailable Unavailable Unavailable EMMA, GERALDO Unavailable [address] [place] [address] RD + [place] [address] QUINTANA, STAR Unavailable Unavailable + [place] [address] R Unavailable Unavailable Unavailable EMMA, BANQUETE Unavailable [address] [place] [address] RD + [place] [address] QUINTANA, STAR Unavailable Unavailable + [place] [address] R Unavailable Unavailable Unavailable EMMA, GERALDO Unavailable [address] [place] [address] RD + [place] [address] QUINTANA, STAR Unavailable Unavailable + [place] [address] R Unavailable Unavailable Unavailable EMMA, BANQUETE Unavailable [address] [place] [address] RD + [place] [address] QUINTANA, STAR Unavailable Unavailable + R Unavailable Unavailable Unavailable EMMA, GERALDO Unavailable [address] [place] [address] RD + [place] [address] QUINTANA, STAR Unavailable Unavailable + R Unavailable Unavailable Unavailable EMMA, GERALDO Unavailable [address] [place] [address] RD + [place] [address] QUINTANA, STAR Unavailable Unavailable + [place] [address] R Unavailable Unavailable Unavailable EMMA, GERALDO Unavailable [address] [place] [address] RD + [place] [address] QUINTANA, STAR Unavailable Unavailable + R Unavailable Unavailable Unavailable EMMA, GERALDO Unavailable [address] [place] [address] RD + [place] [address] QUINTANA, STAR Unavailable . + ., [place] . R Unavailable Unavailable Unavailable EMMA, GERALDO Unavailable [address] [place] [address] RD + [place] [address] QUINTANA, STAR Unavailable . + ., [place] . R Unavailable Unavailable Unavailable EMMA, GERALDO Unavailable [address] [place] [address] RD + [place] [address] QUINTANA, STAR Unavailable Unavailable + R Unavailable Unavailable Unavailable EMMA, GERALDO Unavailable [address] [place] [address] RD + [place] [address] QUINTANA, STAR Unavailable . + [place], [place] [address] R Unavailable Unavailable Unavailable EMMA, GERALDO Unavailable [address] [place] [address] RD + [place] [address] QUINTANA, STAR Unavailable Unavailable + R Unavailable Unavailable Unavailable EMMA, GERALDO Unavailable [address] [place] [address] RD + [place] [address] QUINTANA, STAR Unavailable Unavailable + [place] [address] R Unavailable Unavailable Unavailable EMMA, GERALDO Unavailable [address] [place] [address] RD + [place] [address] QUINTANA, STAR Unavailable Unavailable + R Unavailable Unavailable Unavailable EMMA, GERALDO Unavailable [address] [place] [address] RD + [place] [address] QUINTANA, STAR Unavailable Unavailable + R Unavailable Unavailable Unavailable EMMA, GERALDO Unavailable [address] [place] [address] RD + [place] [address] QUINTANA, STAR Unavailable Unavailable + R Unavailable Unavailable Unavailable EMMA, GERALDO Unavailable [address] [place] [address] RD + [place] [address] QUINTANA, STAR Unavailable Unavailable + R Unavailable Unavailable Unavailable MEMA, GERALDO Unavailable [address] [place] [address] RD + [place] [address] QUINTANA, STAR Unavailable Unavailable + R Unavailable Unavailable Unavailable EMMA, GERALDO Unavailable [address] + [place] [address] QUINTANA, STAR Unavailable Unavailable + R Unavailable Unavailable Unavailable EMMA, GERALDO Unavailable [address] + [place] [address] QUINTANA, STAR Unavailable Unavailable + R Unavailable Unavailable Unavailable EMMA, GERALDO Unavailable [address] + [place] [address] QUINTANA, STAR Unavailable Unavailable + R Unavailable Unavailable Unavailable EMMA, GERALDO Unavailable [address] [place] [address] RD + [place] [address] QUINTANA, STAR Unavailable Unavailable + R Unavailable Unavailable Unavailable EMMA, GERALDO Unavailable [address] [place] [address] RD + [place] [address] QUINTANA, STAR Unavailable Unavailable + R Unavailable Unavailable Unavailable EMMA, GERALDO Unavailable [address] [place] [address] RD + [place] [address] QUINTANA, STAR Unavailable Unavailable + R Unavailable Unavailable Unavailable EMMA, GERALDO Unavailable [address] [place] [address] RD + [place] [address] QUINTANA, STAR Unavailable Unavailable + R Unavailable Unavailable Unavailable EMMA, GERALDO Unavailable [address] [place] [address] RD + [place] [address] QUINTANA, STAR Unavailable Unavailable + R Unavailable Unavailable Unavailable EMMA, GERALDO Unavailable [address] [place] [address] RD + [place] [address] QUINTANA, STAR Unavailable Unavailable + R Unavailable Unavailable Unavailable EMMA, GERALDO Unavailable [address] [place] [address] RD + [place] [address] QUINTANA, STAR Unavailable Unavailable + R Unavailable Unavailable Unavailable EMMA, GERALDO Unavailable [address] [place] [address] RD + [place] [address] QUINTANA, STAR Unavailable Unavailable + R Unavailable Unavailable Unavailable EMMA, GERALDO Unavailable [address] [place] [address] RD + [place] [address] QUINTANA, STAR Unavailable Unavailable + R Unavailable Unavailable Unavailable EMMA, GERALDO Unavailable [address] [place] [address] RD + [place] [address] QUINTANA, STAR Unavailable Unavailable + R Unavailable Unavailable Unavailable EMMA, GERALDO Unavailable [address] [place] [address] [address] + [place] [address] QUINTANA, STAR Unavailable Unavailable + R Unavailable Unavailable Unavailable EMMA, GERALDO Unavailable [address] [place] [address] [address] + [place] [address] QUINTANA, STAR Unavailable Unavailable + R Unavailable Unavailable Unavailable EMMA, GERALDO Unavailable [address] [place] [address] [address] + [place] [address] QUINTANA, STAR Unavailable Unavailable + R Unavailable Unavailable Unavailable EMMA, GERALDO Unavailable [address] [place] [address] [address] + [place] [address] QUINTANA, STAR Unavailable Unavailable + R Unavailable Unavailable Unavailable EMMA, BANQUETE Unavailable [address] [place] [address] [address] + [place] [address] QUINTANA, STAR Unavailable Unavailable + R Unavailable Unavailable Unavailable EMMA, GERALDO Unavailable [address] [place] [address] [address] + [place] [address] QUINTANA, STAR Unavailable Unavailable + R Unavailable Unavailable Unavailable EMMA, GERALDO Unavailable [address] [place] [address] [address] + [place] [address] QUINTANA, STAR Unavailable Unavailable + R Unavailable Unavailable Unavailable EMMA, GERALDO Unavailable [address] [place] [address] [address] + [place] [address] QUINTANA, STAR Unavailable Unavailable + R Unavailable Unavailable Unavailable EMMA, GERALDO Unavailable [address] + [place] [address] QUINTANA, STAR Unavailable Unavailable + R Unavailable Unavailable Unavailable EMMA, GERALDO Unavailable [address] + [place] [address] QUINTANA, STAR Unavailable Unavailable + R Unavailable Unavailable Unavailable EMMA, GERALDO Unavailable [address] + [place] [address] QUINTANA, STAR Unavailable Unavailable + R Unavailable Unavailable Unavailable EMMA, GERALDO Unavailable [address] [place] [address] [address] + [place] [address] QUINTANA, STAR Unavailable Unavailable + R Unavailable Unavailable Unavailable EMMA, GERALDO Unavailable [address] [place] [address] [address] + [place] [address] QUINTANA, STAR Unavailable Unavailable + R Unavailable Unavailable Unavailable EMMA, GERALDO Unavailable [address] [place] [address] [address] + [place] [address] QUINTANA, STAR Unavailable Unavailable + R Unavailable Unavailable Unavailable EMMA, GERALDO Unavailable [address] [place] [address] [address] + [place] [address] QUINTANA, STAR Unavailable Unavailable + R Unavailable Unavailable Unavailable EMMA, GERALDO Unavailable [address] [place] [address] [address] + [place] [address] QUINTANA, STAR Unavailable Unavailable + R Unavailable Unavailable Unavailable EMMA, GERALDO Unavailable [address] [place] [address] [address] + [place] [address] QUINTANA, STAR Unavailable Unavailable + R Unavailable Unavailable Unavailable EMMA, GERALDO Unavailable [address] [place] [address] [address] + [place] [address] QUINTANA, STAR Unavailable Unavailable + R Unavailable Unavailable Unavailable EMMA, GERALDO Unavailable [address] + [place] [address] QUINTANA, STAR Unavailable Unavailable + R Unavailable Unavailable Unavailable EMMA, GERALDO Unavailable [address] [place] [address] [address] + [place] [address] QUINTANA, STAR Unavailable . + [place] [address] R Unavailable Unavailable Unavailable EMMA, GERALDO Unavailable [address] + [place] [address] QUINTANA, STAR Unavailable Unavailable + R Unavailable Unavailable Unavailable EMMA, GERALDO Unavailable [address] [place] [address] [address] + [place] [address] QUINTANA, STAR Unavailable Unavailable + R Unavailable Unavailable Unavailable EMMA, GERALDO Unavailable [address] [place] [address] [address] + [place] [address] QUINTANA, STAR Unavailable . + [place] [address] R Unavailable Unavailable Unavailable EMMA, GERALDO Unavailable [address] [place] [address] [address] + [place] [address] QUINTANA, STAR Unavailable Unavailable + R Unavailable Unavailable Unavailable EMMA, GERALDO Unavailable [address] [place] [address] [address] + [place] [address] QUINTANA, STAR Unavailable Unavailable + R Unavailable Unavailable Unavailable EMMA, GERALDO Unavailable [address] [place] [address] [address] + [place] [address] QUINTANA, STAR Unavailable Unavailable + R Unavailable Unavailable Unavailable EMMA, GERALDO Unavailable [address] [place] [address] [address] + [place] [address] QUINTANA, STAR Unavailable Unavailable + R Unavailable Unavailable Unavailable EMMA, GERALDO Unavailable [address] [place] [address] [address] + [place] [address] QUINTANA, STAR Unavailable Unavailable + R Unavailable Unavailable Unavailable EMMA, GERALDO Unavailable [address] [place] [address] [address] + [place] [address] QUINTANA, STAR Unavailable Unavailable + R Unavailable Unavailable Unavailable EMMA, GERALDO Unavailable [address] [place] [address] [address] + [place] [address] QUINTANA, STAR Unavailable Unavailable + R Unavailable Unavailable Unavailable EMMA, GERALDO Unavailable [address] [place] [address] [address] + [place] [address] QUINTANA, STAR Unavailable Unavailable + R Unavailable Unavailable Unavailable EMMA, GERALDO Unavailable [address] [place] [address] [address] + [place] [address] QUINTANA, STAR Unavailable Unavailable + R Unavailable Unavailable Unavailable EMMA, GERALDO Unavailable [address] [place] [address] [address] + [place] [address] QUINTANA, STAR Unavailable . + [place] [address] R Unavailable Unavailable Unavailable EMMA, GERALDO Unavailable [address] [place] [address] [address] + [place] [address] QUINTANA, STAR Unavailable Unavailable + R Unavailable Unavailable Unavailable EMMA, GERALDO Unavailable [address] [place] [address] [address] + [place] [address] QUINTANA, STAR Unavailable . + [place] [address] R Unavailable Unavailable Unavailable EMMA, GERALDO Unavailable [address] [place] [address] [address] + [place] [address] QUINTANA, STAR Unavailable . + [place] [address] R Unavailable Unavailable Unavailable EMMA, GERALDO Unavailable [address] [place] [address] [address] + [place] [address] QUINTANA, STAR Unavailable . + [place] [address] R Unavailable Unavailable Unavailable EMMA, GERALDO Unavailable [address] [place] [address] [address] + [place] [address] QUINTANA, STAR Unavailable . + [place] [address] R Unavailable Unavailable Unavailable EMMA, GERALDO Unavailable [address] [place] [address] [address] + [place] [address] QUINTANA, STAR Unavailable . + [place] [address] R Unavailable Unavailable Unavailable EMMA, GERALDO Unavailable [address] [place] [address] [address] + [place] [address] QUINTANA, STAR Unavailable . + [place] [address] R Unavailable Unavailable Unavailable EMMA, GERALDO Unavailable [address] [place] [address] [address] + [place] [address] QUINTANA, STAR Unavailable . + [place] [address] R Unavailable Unavailable Unavailable EMMA, GERALDO Unavailable [address] [place] [address] [address] + [place] [address] QUINTANA, STAR Unavailable . + [place] [address] R Unavailable Unavailable Unavailable EMMA, GERALDO Unavailable [address] [place] [address] [address] + [place] [address] QUINTANA, STAR Unavailable . + [place] [address] R Unavailable Unavailable Unavailable EMMA, GERALDO Unavailable [address] [place] [address] [address] + [place] [address] QUINTANA, STAR Unavailable . + [place] [address] R Unavailable Unavailable Unavailable EMMA, GERALDO Unavailable [address] [place] [address] [address] + [place] [address] QUINTANA, STAR Unavailable . + [place] [address] R Unavailable Unavailable Unavailable EMMA, GERALDO Unavailable [address] [place] [address] [address] + [place] [address] QUINTANA, STAR Unavailable . + [place] [address] R Unavailable Unavailable Unavailable EMMA, GERALDO Unavailable [address] [place] [address] [address] + [place] [address] R Unavailable Unavailable Unavailable EMMA, GERALDO Unavailable [address] [place] [address] [address] + [place] [address] R Unavailable Unavailable Unavailable EMMA, GERALDO Unavailable [address] [place] [address] [address] + [place] [address] R Unavailable Unavailable Unavailable EMMA, GERALDO Unavailable [address] + [place] [address] R Unavailable Unavailable Unavailable EMMA, GERALDO Unavailable [address] [place] [address] [address] + [place] [address] QUINTANA, STAR Unavailable Unavailable + R Unavailable Unavailable Unavailable EMMA, GERALDO Unavailable [address] [place] [address] [address] + [place] [address] QUINTANA, STAR Unavailable Unavailable + R Unavailable Unavailable Unavailable EMMA, GERALDO Unavailable [address] [place] [address] [address] + [place] [address] QUINTANA, STRA Unavailable Unavailable + R Unavailable Unavailable Unavailable EMMA, GERALDO Unavailable [address] [place] [address] [address] + [place] [address] QUINTANA, STAR Unavailable Unavailable + R Unavailable Unavailable Unavailable EMMA, GERALDO Unavailable [address] [place] [address] [address] + [place] [address] QUINTANA, STAR Unavailable Unavailable + R Unavailable Unavailable Unavailable EMMA, GERALDO Unavailable [address] [place] [address] [address] + [place] [address] QUINTANA, STAR Unavailable Unavailable + R Unavailable Unavailable Unavailable EMMA, GERALDO Unavailable [address] [place] [address] [address] + [place] [address] QUINTANA, STAR Unavailable . + [place] [address] R Unavailable Unavailable Unavailable EMMA, GERALDO Unavailable [address] [place] [address] [address] + [place] [address] R Unavailable Unavailable Unavailable EMMA, GERALDO Unavailable [address] [place] [address] [address] + [place] [address] R Unavailable Unavailable Unavailable EMMA, GERALDO Unavailable [address] [place] [address] [address] + [place] [address] R Unavailable Unavailable Unavailable EMMA, GERALDO Unavailable [address] + [place] [address] R Unavailable Unavailable Unavailable EMMA, GERALDO Unavailable [address] + [place] [address] R Unavailable Unavailable Unavailable EMMA, GERALDO Unavailable [address] + [place] [address] R Unavailable Unavailable Unavailable EMMA, GERALDO Unavailable [address] + [place] [address] R Unavailable Unavailable Unavailable EMMA, GERALDO Unavailable [address] + [place] [address] R Unavailable Unavailable Unavailable EMMA, GERALDO Unavailable [address] + [place] [address] R Unavailable Unavailable Unavailable EMMA, GERALDO Unavailable [address] + [place] [address] R Unavailable Unavailable Unavailable EMMA, GERALDO Unavailable [address] + [place] [address] R Unavailable Unavailable Unavailable EMMA, GERALDO Unavailable NA + [place], [place] R Unavailable Unavailable Unavailable Care Team Providers Name Role Phone AARON TIDWELL Attending Unavailable AARON TIDWELL Attending Unavailable MILLICENT BARRIOS ([facility]) Referring Unavailable OLDER, MILLICENT ([facility]) Attending Unavailable CONRADO BELL ([facility]) Referring Unavailable OLDER, MILLICENT ([facility]) Referring Unavailable AARON TIDWELL Attending Unavailable AARON TIDWELL Referring Unavailable AARON TIDWELL Referring Unavailable MILLICENT BARRIOS ([facility]) Attending Unavailable NORA SPAIN Referring Unavailable MILLICENT BARRIOS ([facility]) Attending Unavailable AARON TIDWELL Attending Unavailable AARON TIDWELL Referring Unavailable AARON TIDWELL Referring Unavailable Eliu Mitchell D.O. Attending Unavailable Coleen Soto Referring Unavailable Mira Almonte Attending Unavailable Aaron Tidwell Primary Care Unavailable Deacon Wylie Attending Unavailable Coleen Soto Referring Unavailable Nora Spain Attending Unavailable Malys, Meche Referring Unavailable Tidwell, Aaron Primary Care Unavailable Gage, Mira Consulting Unavailable Gage, Mira Attending Unavailable Tidwell, Aaron Primary Care Unavailable Deacon Wylie Attending Unavailable Tidwell, Aaron Referring Unavailable Malys, Meche Attending Unavailable Tidwell, Aaron Primary Care Unavailable Malys, Meche Referring Unavailable Gage, Mira Consulting Unavailable Jose Breaux Attending Unavailable Tidwell, Aaron Referring Unavailable Santiago Pelaez Attending Unavailable Santiago Pelaez Referring Unavailable Tidwell, Aaron Primary Care Unavailable Malys, Meche Referring Unavailable Tidwell, Aaron Primary Care Unavailable Gage, Mira Consulting Unavailable FascioneNora Attending Unavailable Alvarado, [place] Attending Unavailable Tidwell, Aaron Primary Care Unavailable Alvarado, Epifanio Referring Unavailable Mili Major Consulting Unavailable Tidwell, Aaron Attending Unavailable Tidwell, Aaron Primary Care Unavailable Tidwell, Aaron Primary Care Unavailable Christen Prado Attending Unavailable MaheshoneNora Attending Unavailable Malys, Meche Referring Unavailable Tidwell, Aaron Primary Care Unavailable Gage, Mira Consulting Unavailable Gage, Mira Attending Unavailable Tidwell, Aaron Primary Care Unavailable Tidwell, Aaron Primary Care Unavailable Roca, Esa Attending Unavailable Roca, Esa Referring Unavailable Gage, Mira Consulting Unavailable Tidwell, Aaron Primary Care Unavailable Meche Ramos Attending Unavailable Tidwell, Aaron Primary Care Unavailable Major Meyers Attending Unavailable Tidwell, Aaron Primary Care Unavailable Eliu Mitchell D.O. Consulting Unavailable John, Frederic Admitting Unavailable Paintsil, [place] Attending Unavailable Huang Alvarado Consulting Unavailable John, [...] Care Unavailable Eliu Mitchell D.O. Consulting Unavailable Lund, Huang Consulting Unavailable John, Frederic Consulting Unavailable [...] Care Unavailable Eliu Mitchell D.O. Consulting Unavailable Lund, Huang Consulting Unavailable John, Frederic Consulting Unavailable John, Frederic Admitting Unavailable John, Frederic Attending Unavailable Tidwell, Aaron Primary Care Unavailable Eliu Mitchell D.O. Consulting Unavailable Jenny, Huang Consulting Unavailable John, Frederic Consulting Unavailable John, Frederic Admitting Unavailable Paintsil, [place] Attending Unavailable Tidwell, Aaron Primary Care Unavailable Eliu Mitchell D.O. Consulting Unavailable Jenny, Huang Consulting Unavailable Paintsil, [place] Consulting Unavailable John, Frederic Admitting Unavailable Paintsil, [place] Attending Unavailable Tidwell, Aaron Primary Care Unavailable Eliu Mitchell D.O. Consulting Unavailable Jenny, Huang Consulting Unavailable Paintsil, [place] Consulting Unavailable Redd, Ari Chi Admitting Unavailable Redd, Ari Chi Attending Unavailable Redd, Ari Chi Referring Unavailable Tidwell, Aaron Primary Care Unavailable Gosia Lawson Attending Unavailable Tidwell, Aaron Referring Unavailable Tidwell, Aaron Primary Care Unavailable Nora Spain Attending Unavailable Malys, Meche Referring Unavailable Tidwell, Aaron Primary Care Unavailable Mira Almonte Consulting Unavailable Alvarado, [place] Attending Unavailable Alvarado, Epifanio Referring Unavailable Tidwell, Aaron Primary Care Unavailable Hamdan, Firas Consulting Unavailable Cameron Alvaradoel Attending Unavailable Tidwell, Aaron Referring Unavailable Tidwell, Aaron Primary Care Unavailable Deacon Wylie Attending Unavailable Frederic Lopez Referring Unavailable Epifanio Childers Attending Unavailable Malys, Meche Referring Unavailable Fascione, Nora Attending Unavailable Malys, Meche Referring Unavailable Tidwell, Aaron Primary Care Unavailable Gage, Mira Consulting Unavailable Fascione, Nora Attending Unavailable Tidwell, Aaron Primary Care Unavailable Gage, Mira Attending Unavailable Tidwell, Aaron Primary Care Unavailable Va Monique Attending [...] Primary Care Unavailable Gage, Mira Attending Unavailable Agge, Mira Referring Unavailable Tidwell, Aaron Primary Care Unavailable Gage, Mira Attending Unavailable Gage, Mira Referring Unavailable Tidwell, Aaron Primary Care Unavailable Gage, Mira Attending Unavailable Gage, Mira Referring Unavailable Tidwell, Aaron Primary Care Unavailable Tidwell, Aaron Primary Care Unavailable Esa Roca Attending Unavailable Gage, Mira Attending Unavailable Gage, Mira Referring Unavailable Tidwell, Aaron Primary Care Unavailable Epifanio Childers Attending Unavailable Tidwell, Aaron Referring Unavailable Huang [...] Referring Unavailable Tidwell, Aaron Primary Care Unavailable Aden Carbajal Attending Unavailable BasaliAden Referring Unavailable Tidwell, Aaron Primary Care Unavailable [...] Mira Attending Unavailable Gage, Mira Referring Unavailable Tiwdell, Aaron Primary Care Unavailable Gage, Mira Attending [...] Referring Unavailable Tidwell, Aaron Primary Care Unavailable Jenny, Huang Attending Unavailable Tidwell, Aaron Referring Unavailable Gage, Mira Attending Unavailable Tidwell, Aaron Primary Care Unavailable Gage, Mira Referring Unavailable Tidwell, Aaron Primary Care Unavailable Gage, Mira Attending Unavailable Jose Breaux Attending Unavailable Tidwell, Aaron Referring Unavailable Soto, Coleen Attending Unavailable Tidwell, Aaron Referring Unavailable Gage, Mira Attending Unavailable Gage, Mira Referring Unavailable Tidwell, Aaron Primary Care Unavailable Jenny, Huang Attending Unavailable Lund, Huang Referring Unavailable Tidwell, Aaron Primary Care [...] Primary Care Unavailable Gage, Mira Consulting Unavailable Soto, Coleen Attending Unavailable Soto, Coleen Referring Unavailable Aaron Tidwell Primary Care Unavailable Huang Alvarado Attending Unavailable Namita Jose Landrum Attending Unavailable Aaron Tidwell Referring Unavailable PROBLEMS PROBLEMS DATE TYPE CONDITION / CODE ATTENDING STATUS SOURCE 09/26/2018 Unknown I87.2 - Venous Fascione, Active [facility] insufficiency [facility] (chronic) (peripheral) Hospital / I87.2(ICD-10) Repository 09/05/2018 Unknown N17.9 - Acute kidney GageCharlyMira Active [facility] failure, unspecified / Community N17.9(ICD-10) Hospital Repository 09/13/2018 Unknown R06.09 - Other forms Deacon Wylie Active [facility] of dyspnea / Community R06.09(ICD-10) Hospital Repository 09/03/2018 Unknown K92.2 - Lund, Active [facility] hemorrhage, Hospital unspecified / Repository K92.2(ICD-10) 09/03/2018 Unknown K92.1 - Melena / Jenny, Active [facility] K92.1(ICD-10) [facility] Hospital Repository 09/03/2018 Unknown K64.8 - Other Lund, Active [facility] hemorrhoids / [facility] K64.8(ICD-10) Hospital Repository 09/03/2018 Unknown K57.30 - Lund, Active [facility] Diverticulosis of [facility] large intestine Hospital without perforation or Repository abscess without bleeding / K57.30(ICD-10) 08/08/2018 Unknown R91.1 - Solitary Soto, Active [facility] pulmonary nodule / [facility] R91.1(ICD-10) Hospital Repository 08/13/2018 Unknown Z45.2 - Encounter for Mira Almonte Active [facility] adjustment and Community management of vascular Hospital access device / Repository Z45.2(ICD-10) 06/28/2018 Unknown Z01.818 - Encounter Gage Mira Active [facility] for other Community preprocedural Hospital examination / Repository Z01.818(ICD-10) 06/29/2018 Unknown E83.59 - Other Gage Mira Active [facility] disorders of calcium Community metabolism / Hospital E83.59(ICD-10) Repository 05/01/2018 Unknown F11.20 - Opioid Basali, Ayman Active [facility] dependence, Community uncomplicated / Hospital F11.20(ICD-10) Repository 04/10/2018 Unknown I48.2 - Chronic atrial AlvaradoAamir connollyril Active [facility] fibrillation / Community I48.2(ICD-10) Hospital Repository 04/10/2018 Unknown I50.33 - Acute on Alvarado, Epifanio Active [facility] chronic diastolic Community (congestive) heart Hospital failure / Repository I50.33(ICD-10) 03/26/2018 Unknown N18.3 - Chronic kidney Mira Almonte Active [facility] disease, stage 3 Community (moderate) / Hospital N18.3(ICD-10) Repository 01/09/2018 Active 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) / [place] D50.0(ICD-10) Repository 02/20/2018 Active Type 2 diabetes NA Active [facility] mellitus with diabetic Clinic Main chronic kidney disease [place] / E11.22(ICD-10) Repository 01/24/2018 Active Elevated white blood NA Active [place] cell count, Clinic Main unspecified / [place] D72.829(ICD-10) Repository 04/12/2017 Active Chronic kidney NA Active [facility] disease, stage 3 Clinic Main (moderate) / [place] N18.3(ICD-10) Repository 01/09/2018 Active Shortness of breath / NA Active [facility] R06.02(ICD-10) Clinic Main [place] Repository 01/09/2018 Active Hypotension, NA Active [facility] unspecified / Clinic Main I95.9(ICD-10) [place] Repository 01/09/2018 Active Unknown / UNK(Unknown) OLDER, 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) Clinic Main [place] Repository 01/01/2018 Unknown I83.028 - Varicose Redd, Ari Chi Active [facility] veins of left lower Community extremity with ulcer Hospital other part of lower Repository leg / I83.028(ICD-10) 01/01/2018 Unknown R60.9 - Edema, Redd, Ari Chi Active [facility] unspecified / Community R60.9(ICD-10) Hospital Repository 01/01/2018 Unknown R53.81 - Other malaise Redd, Ari Chi Active [facility] / R53.81(ICD-10) Community Hospital Repository 01/01/2018 Unknown I83.892 - Varicose Redd, Ari Chi Active [facility] veins of left lower Community extremity with other Hospital complications / Repository I83.892(ICD-10) 01/01/2018 Unknown M48.061 - Spinal Redd, Ari Chi Active [facility] stenosis, lumbar Community region without Hospital neurogenic Repository claudication / M48.061(ICD-10) 01/01/2018 Unknown M54.16 - Redd, Ari Chi Active [facility] Radiculopathy, lumbar Community region / Hospital M54.16(ICD-10) Repository 01/16/2018 Unknown R94.31 - Abnormal AlvaradoAamir connollyril Active [facility] electrocardiogram Community [ECG] [EKG] / Hospital R94.31(ICD-10) Repository 11/17/2017 Unknown Z12.31 - Encounter for Tidwell, Active [facility] screening mammogram [facility] Hospital of breast / Repository Z12.31(ICD-10) 12/25/2017 Unknown E11.622 - Type 2 AlvaradoAamir connollyril Active [facility] diabetes mellitus with Community other skin ulcer / Hospital E11.622(ICD-10) Repository PROCEDURES PROCEDURES No Procedure Records FoundRESULTS RESULTS PULMONARY VISIT REPORT Observed: 10/08/2018 Status: F Source: [place] 12:23 PM [facility] [place] of [address] [place] [address] OFFICE VISIT Date of Service: 10/08/18 MR#: [id number] Acct: [id number] Name: DI ZAPATA Rep #: [id number] : 1945 Provider: Deacon Wylie MD Age/Sex: 72/F Location: [facility] Status: Signed Assessment AND Plan Problems 1. Dyspnea on exertion R06.09 2. Pulmonary hypertension, secondary 3. Heart failure with 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 I50.30 4. Chronic kidney disease, stage 3 N18.3 5. LYN on CPAP G47.33; Z99.89 Plan Patient overall appears to be improved compared to previous. Patient has had significant response to Lasix therapy with improved DLCO back to her previous baseline. Patient does have an element of restriction with some lingular scarring noted on CT scan. This does not appear to be significantly different compared to previous. No supplemental oxygen is indicated at this time. Will need to continue to watch this closely. Anticipate repeat testing of walking oximetry and complete PFT in 1 year. Stressed the patient compliance with BiPAP therapy would likely improve her overall condition. However, patient appears to be pre-contemplative at this time. Continue current therapy. No indication for supplemental oxygen at this time. Plan Detail 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 ([facility]) HPI 6 wk FU: Chief Complaint: Shortness of breath on exertion Details: Patient is a 72-year-old female, currently under the care of Dr. Tidwell, who presents for evaluation secondary to shortness of breath on exertion. Since last visit, patient denies any ER visits, hospitalizations or prednisone burst. Patient does continue on 2.5 mg of prednisone per day for her renal condition. Patient overall feels that she is subjectively improved compared to previous. Patient states her lower extremity ulcers are healing. Patient is still having some dyspnea with activity and rest, but feels this is improving. Patient has had some intermittent dry cough and wheezing. Patient reports that she is not using her BiPAP machine. Patient states that while she was in the hospital she had a sensation of choking and has not been able to get over this event to reinitiate her BiPAP therapy. Patient does feel that she is more fatigued during the day, but it is not intolerable. Patient reports that Dr. Almonte has continued her on 2.5 mg of prednisone and her calcium levels are in the upper limit of normal. Patient states there was a significant response to increased prednisone at 10 mg and she is attempting to wean off at this time. Patient has some weight gain, but overall is tolerating well. No insomnia is been reported. Patient continues to report nodules of her lower extremities that are tender to the touch. However, patient feels she is much improved compared to previous. Patient denies any cellulitis, open sores or other complications. Patient reports she has been compliant with her Lasix therapy. Patient does check her pulse oximetry at home. Patient states her saturations have been running in the mid to low 90s with the lowest recorded saturation of 92%. Testing personally reviewed with the patient Complete PFT (09/03/2018): Irreversible moderate restrictive ventilatory defect with a symmetric reduction diffusion capacity and improvement compared to previous (FVC is 52%, FEV1 57%, TLC 59%, DLCO 53%) Walking oximetry (08/28/18): Ambulated 1110 feet over the course of 6 minutes with an oxygen leah of 93% CT chest (08/23/2018): Stable scarring noted in the lung bases without associated nodules or masses. No effusions noted. 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 Required: No Accompanied by: Self Allergies amlodipine besylate [From Norvasc] Allergy (Verified 10/08/18 08:37) Unknown ceftriaxone Allergy (Verified 10/08/18 08:37) Rash doxazosin [From Cardura] Allergy (Verified 10/08/18 08:37) Unknown doxazosin mesylate [From Cardura] Allergy (Verified 10/08/18 08:37) Other doxycycline Allergy (Verified 10/08/18 08:37) Unknown enalapril maleate [From Vasotec] Allergy (Verified 10/08/18 08:37) Rash enalaprilat dihydrate [From Vasotec] Allergy (Verified 10/08/18 08:37) Rash hydroxyzine HCl [From Vistaril] Allergy (Verified 10/08/18 08:37) Rash hydroxyzine pamoate [From Vistaril] Allergy (Verified 10/08/18 08:37) Rash meperidine HCl [From Demerol] Allergy (Verified 10/08/18 08:37) Rash Sulfa (Sulfonamide Antibiotics) Allergy (Verified 10/08/18 08:37) Hives sulfamethoxazole [From Bactrim] Allergy (Verified 10/08/18 08:37) Hives trimethoprim [From Bactrim] Allergy (Verified 10/08/18 08:37) Hives Medications Metoprolol Tartrate [Lopressor (beta alok)] 25 mg PO BID 12/12/17 [History Confirmed 10/08/18] Potassium Chloride [K-Tab ER] 10 meq PO QDAY 12/12/17 [History Confirmed 10/08/18] furosemide 20 mg tablet 20 mg PO DAILY #30 tab 07/02/18 [Rx Confirmed 10/08/18] polysaccharide iron complex 150 mg iron capsule 150 mg PO DAILY cap 08/01/18 [History Confirmed 10/08/18] prednisone 10 mg tablet 2.5 mg PO DAILY tab 10/08/18 [History Confirmed 10/08/18] PFS Medical History Venous insufficiency (chronic) (peripheral) (Chronic) Right leg pain (Chronic) Ulcer of left lower extremity with fat layer exposed (Chronic) Calciphylaxis (Chronic) Ulcer of left lower extremity with fat layer exposed (Chronic) Ulcer of right lower extremity with fat layer exposed (Resolved) Pain in right leg (Chronic) Pain in left leg (Chronic) Delayed wound healing (Chronic) Localized edema (Chronic) 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) Abnormal screening CT [...] with 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 (Chronic) Cellulitis (Resolved) 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) Chronic atrial [...] procedure (Chronic) S/P PICC central line placement (Chronic) H/O skin graft (Resolved) History of hysterectomy (Resolved) History of loop [...] substance use type: does not use caffeine: No what type of physical activity do you participate in: other details: tredmill frequency: daily duration: 15-30 minutes/day seatbelt use: always do you feel safe at home: Yes Review of Systems Const CONSTITUTIONAL: Positive fatigue; negative anorexia, body ache, chills, daytime sleepiness, fever(s), night sweats, oral thrush, stops breathing during sleep, weight loss, sleeping in chair, weight loss, weight gain, frequent colds, seasonal allergies, other, headache(s) or orthopnea EETM Ear Nose Throat Mouth: Positive hearing normal; negative hard of hearing, hoarseness, dry mouth in morning, change in vision, itchy eyes, eye pain, swallowing Difficulty, ear pain, nose bleed, headache(s), mouth pain, nasal congestion, nasal discharge, post nasal drip, sinus pain, sinus pressure, sore throat or other Cardio Cardiovascular: Negative chest pain, chest pain at rest, chest pain with activity, irregular heart rhythm, edema, shortness of breath when lying down, palpitations, murmur or other Resp Respiratory: Positive as per HPI, shortness of breath and cough cough: Positive non-productive; negative pain with cough, wheezing, chest congestion, chest tightness, pain on inspiration, inhalers, increase use of rescue inhalers, snoring, apnea or other Gastro Gastrointestional: Negative bloody stools, change in appetite, difficulty swallowing, reflux, hematemesis, melena stool, loose stool, constipation or other Genitourinary: Negative blood in urine, nocturia, pain with urination or other Musc Musculoskeletal: [...] well developed, well nourished, good hygiene and obese; negative smells of smoke, wearing supplemental oxygen or dyspenic Head Head: Positive normocephalic and atraumatic; negative cyanosis of lips/distal nose, frontal sinus tenderness or maxillary sinus tenderness Eyes Eye: Positive clear conjunctiva; negative nystagmus, scleral abnormality or cataract present Ears Ear: Positive hearing normal and external ears normal; negative hard of hearing Nose Nose: Positive external nose normal, septum normal and no nasal discharge; negative epistaxis or nasal polyp Mouth Mouth: Positive oral mucosae normal, no lesions and posterior oropharynx is adequate; negative post nasal drip, malodorous breath or oral thrush present Mallampati Score: II: Mallampati Score Neck Neck: Positive normal visual inspection, full ROM and trachea midline; negative lymphadenopathy or JVD Chest Wall Chest: Positive normal inspection of the chest and symmetric chest movement; negative crepitus or tenderness Resp lung sounds: Positive diminished and normal expiratory time; negative wheezes, rhonchi, rales, use of accessory muscles, wheeze present on forced exhalation or dullness to percussion Cardio Cardiac: Positive regular rate, regular rhythm, S1 normal and S2 normal; negative murmur, rub or gallop GI GI: Positive normal to inspection, normal bowel sounds and obese; negative distended, ascites or epigastric tenderness Genitourinary: Positive deferred Musc Musculoskeletal: Positive steady gait; negative using an assistive device for ambulation, kyphosis or scoliosis Skin Pulmonary Skin Exam: Positive intact and dermal atrophy; negative rash, lesion, ulcers or erythema Pulses Pulse: Yes radial pulses present Extremities Extremities: Yes capillary refill normal, No clubbing, No cyanosis, Yes edema (1+) Neuro Neurologic: Yes conversant, Yes no focal neuro deficits, Yes understands questions, Yes normal concentration, Yes cooperative, Yes normal cognition, Yes normal coordination Lymph Lymphatic: No lymphadenopathy Psych Appearance: Positive grossly normal Mental Status: Positive mental status grossly normal Mood: Positive congruent mood Affect: Positive normal affect Coding Level of Care Code Off vis,est,level 4 Diagnoses Dyspnea on exertion R06.09 Pulmonary hypertension, secondary Heart failure with 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 I50.30 Chronic kidney disease, stage 3 N18.3 LYN on CPAP G47.33; Z99.89 10/08/18 1223 <Electronically signed by Deacon Wylie MD> Date Deacon Wylie MD Cosigner Signature: Date (if applicable) CC: Aaron Tidwell MD PTHIN Collected: 09/27/2018 Status: F Source: [place] 10:44 AM [facility] [place] TYPE CODE TESTS RESULT OUT OF RANGE REFERENCE UNITS LAB L509.1000 18.4-80.1 pg/mL Normal PTHIN 34.8 Performed By: #### L509.1000 #### [facility] [address] [place], [address] RENAL PROFILE Collected: 09/27/2018 Status: F Source: [place] 10:44 AM [facility] [place] TYPE CODE TESTS RESULT OUT OF RANGE REFERENCE UNITS LAB L501.0100 74-106 mg/dL High GLU 120 Result Comment: Fasting Glucose result from 100 to 125 mg/dL suggests IMPAIRED HOMEOSTASIS per A.D.A. criteria. Please note revised GLUCOSE reference range effective 2017. LAB L501.1000 7-18 mg/dL High BUN 31 LAB L501.1100 0.55-1.02 mg/dL High CREAT,SERUM 1.11 Result Comment: The validity of the calculated GFR AND GFRAA in patients over 70 years has not been determined. Clinical correlation is essential. LAB L501.1110 >60 mL/min Low EST GFR 51 Result Comment: Non- GFR Calc LAB L501.1115 >60 mL/min Normal EST GFR - AA 62 Result Comment: GFR Calc LAB L501.1300 10-20 RATIO High BUN/CRE 27.9 LAB L501.1800 3.2-5.0 g/dL Normal ALB 3.7 LAB L501.2200 8.5-10.1 mg/dL CA Normal 9.0 LAB L501.2300 2.5-4.9 mg/dL Normal PHOS 3.2 LAB L501.5300 136-145 mmol/L NA Normal 138 LAB L501.5600 3.5-5.1 mmol/L K Normal 4.0 LAB L501.5900 98-107 mmol/L CL Normal 105 LAB L501.6100 21.0-32.0 mmol/L Normal CO2 21.0 Performed By: #### L500.3600 #### [facility] [address] [place], [place], [address] VITAMIN D 1,25-DIHYDROXY Collected: 09/27/2018 Status: F Source: [place] 10:44 AM [facility] [place] TYPE CODE TESTS RESULT OUT OF RANGE REFERENCE UNITS LAB L3300.0960 19.9-79.3 pg/mL Normal VITD 1,25 39.2 88015 Result Comment: Performed at: [address] [id number] White Washer Piler: Gertrude Melvin MD, Phone: [phone] Performed By: #### L3300.0960 #### [facility] (refer to report for specific site) refer to report for address and phone number RENAL PROFILE Collected: 09/05/2018 Status: F Source: [place] 8:40 AM [facility] [place] TYPE CODE TESTS RESULT OUT OF [...] CO2 29.0 Performed By: #### L500.3600 #### [facility] [address] [place] [place], [address] VITAMIN D 1,25-DIHYDROXY Collected: 09/05/2018 Status: F Source: [place] 8:40 AM [facility] [place] TYPE CODE TESTS RESULT OUT OF RANGE REFERENCE UNITS LAB L3300.0960 19.9-79.3 pg/mL Normal VITD 1,25 32.5 72288 Result Comment: Performed at: - [facility] [id number] [place] Piler: Gertrude Melvin MD, Phone: [phone] Performed By: #### L3300.0960 #### [facility] (refer to report for specific site) refer to report for address and phone number PULMONARY FUNCTION Observed: 09/04/2018 Status: F Source: [place] REPORT COMP 5:44 AM [facility] [place] [facility] Pulmonary Services/Neurology [address] [place] [address] MR#: [id number] Acct: [id number] Name: DI ZAPATA Nazario Rep #: [id number] : 1945 72 From: Deacon Wylie MD Referring Dr: Coleen Soto 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 Status: REG CLI Ordering Dr: Date: Location: PSN Sex: F C COMPLETE PULMONARY FUNCTION TEST INTERPRETATION Brief HPI: Patient is a 72 year old female, currently under the care of Coleen Soto, who presents to [facility] for complete pulmonary function tests secondary to [...] Wylie MD CC: Deacon Wylie MD; Coleen Tidwell MD Date Dictated: 09/03/18 1357 Date Transcribed: 09/03/18 135 Lead Web Application Developer: SJ Signed 6 MINUTE WALK TEST Observed: 08/29/2018 Status: F Source: [place] 11:26 AM [facility] [place] [facility] Pulmonary Services/Neurology [address] [place], [place] [id number] MR#: [id number] Acct: [id number] Name: DI ZAPATA Rep #: [id number] : 1945 72 From: Eliu Mitchell DO Referring Dr: Coleen Soto NP Date: Ordering Dr: Sex: F C Location: PSN PSN 6 Minute Walk Test - 6 Minute Walk Test 6 Minute Walk Test: 6 Minute Walk Test PSN:6-Minute Walk Test Start: 08/28/18 11:20 Freq: Status: Active Protocol: RESP.6MINW Document 08/28/18 11:23 FR (Rec: 08/28/18 11:28 FR [id number]) 6 Minute Walk Test Date Performed 08/28/18 [...] Date Dictated: 08/29/18 1124 Date Transcribed: 08/29/18 1124 Lead Web Application Developer: Eliu Mitchell DO Signed CHEST WITH CONTRAST Observed: 08/23/2018 Status: F Source: [place] 2:24 PM [facility] [place] [facility] Imaging Services [address] [place] [address] Chest WITH Contrast MR#: [id number] Acct: [id number] Name: DI ZAPATA Rep #: [id number] : 1945 F 72 From: Usama Day MD PCP: Aaron Tidwell MD Status: REG CLI Study: Chest WITH Contrast Date of Exam: 08/23/18 Exam# [id number] Ordering Dr: Coleen Soto 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-C STUDY: CT CHEST WITH CONTRAST REASON FOR [...] , CC: Coleen Soto; Aaron Tidwell MD Lead Web Application Developer: Signed OPERATIVE REPORT - Observed: 08/20/2018 Status: F Source: [place] ENDOSCOPY 9:51 AM [facility] [place] [facility] Medical Records Department [address] [place] [address] Operative Report - Endoscopy MR#: [id number] Acct: [id number] Name: DI ZAPATA Rep #: [id number] : 1945 72 From: Huang Alvarado MD PCP: Aaron Tidwell MD Status: REG [facility] Patient Name: Di Zapata Procedure Date: 08/20/2018 9:22 AM Date [...] office PRN. Procedure Code(s): --- Professional --- 42230, Colonoscopy, flexible; diagnostic, including collection of specimen(s) by brushing or washing, when performed (separate procedure) Diagnosis Code(s): --- Professional --- K64.8, Other hemorrhoids K92.1, Melena (includes Hematochezia) K92.2, Gastrointestinal hemorrhage, unspecified K57.30, Diverticulosis of large intestine without perforation or abscess without bleeding CPT copyright 2017 [employer]. All rights reserved. The codes documented in this report are preliminary and upon telephone clerks supervisor review may be revised to meet current compliance requirements. MD Huang Romero MD 08/20/2018 9:51:29 AM This report has been signed electronically. Number of Addenda: 0 Note Initiated On: 08/20/2018 9:22 AM 08/20/18 0951 Date Huang Alvarado MD Cosigner Signature: Date (if indicated) CC: Huang Alvarado MD; Aaron Tidwell MD Date Dictated: 08/20/18 0922 Date Transcribed: Lead Web Application Developer: MARY BETH Signed BEDSIDE GLUCOSE Collected: 08/20/2018 Status: F Source: [place] 8:58 AM [facility] [place] TYPE CODE TESTS RESULT OUT OF RANGE REFERENCE UNITS LAB L501.080 70-110 mg/dL Normal BEDSIDE GLU 93 Result Comment: MANAGEMENT OF PATIENT CARE PER NURSING PROTOCOL Performed By: #### L501.080 #### [facility] Point of Care [address] [place] [address] PROGRESS Observed: 08/09/2018 Status: COMPLETED Source: [place] 10:42 AM [facility] REPOSITORY HNO ID: [id number] Author: Becka Kingsley Service: (none) Author Type: Registered Nurse Type: Progress Notes Filed: 08/11/2018 5:16 PM Note Text: PRIMARY CARE COORDINATION CHART REVIEW Patient identified for Care Coordination from: High Risk Registry Last PCP office visit: 07/26/2018 Next OV: 01/25/2019 CHRONIC DX: CKD CARE GAPS: Scheduled for colonoscopy with Dr. Alvarado on 08/20/18 at [facility] UTILIZATION WITHIN THE LAST 12 MONTHS: ? none ? HOSPITAL: yes, [facility] ? SNF: [facility] DOES THIS PATIENT HAVE AN ADVANCE DIRECTIVE? ? No PRIMARY CARE COORDINATION OUTREACH PLAN: ? After colonoscopy Becka Kingsley human performance technologist Sales Engagement Executive Internal Medicine [facility] ? ? ? August 09, 2018 DIA[place] Observed: 08/09/2018 Status: COMPLETED Source: [place] 12:00 AM [facility] REPOSITORY Patient Outreach (INTMWS) DI ZAPATA ([id number]) 1945 F Date Time Provider Department 08/09/18 BECKA HONG During your visit today, we recorded the following information about you: Becka Aguayo RN 08/11/2018 5:16 PM Signed PRIMARY CARE COORDINATION CHART REVIEW Patient identified for Care Coordination from: High Risk Registry Last PCP office visit: 07/26/2018 Next OV: 01/25/2019 CHRONIC DX: CKD CARE GAPS: Scheduled for colonoscopy with Dr. Alvarado on 08/20/18 at [facility] UTILIZATION WITHIN THE LAST 12 MONTHS: ? none ? HOSPITAL: yes, [facility] ? SNF: TCU DOES THIS PATIENT HAVE AN ADVANCE DIRECTIVE? ? No PRIMARY CARE COORDINATION OUTREACH PLAN: ? After colonoscopy Becka Kingsley RN Ambulatory Sales Engagement Executive Internal Medicine [facility] ? ? ? August 09, 2018 Allergies [...] CAPSULE Take 100 mg by mouth four nakita* COMPOUNDED PRESCRIPTION Thigh High Compression Stocki* Problem [...] VISIT REPORT Observed: 08/08/2018 Status: F Source: [place] 8:52 AM [facility] Pulmonary Medicine [address] [place] [address] OFFICE VISIT Date of Service: 08/08/18 MR#: [id number] Acct: [id number] Name: DI ZAPATA Rep #: [id number] : 1945 Provider: Coleen Soto Age/Sex: 72/F Location: [facility] Status: Signed Assessment AND Plan Problems 1. [...] Orders: Plan Detail Follow Up 2 Months ([facility]) HPI 3 M FU: Chief Complaint: Shortness [...] lb Intake Visit Reasons: 3 M FU Upper Lining Cementer Required: No Is patient in pain?: No [...] Instructions PO DAILY 08/08/18 [History Confirmed 08/08/18] [facility] Medical History Venous insufficiency (chronic) (peripheral) (Chronic) Right leg pain (Chronic) Ulcer of left lower extremity with fat layer exposed (Chronic) Calciphylaxis (Chronic) Ulcer of left lower extremity with fat layer exposed (Chronic) Ulcer of right lower extremity with fat layer exposed (Chronic) Pain in right leg (Chronic) Pain in left leg (Chronic) Delayed wound healing (Chronic) Localized edema (Chronic) 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, [address] VITAMIN D 1,25-DIHYDROXY Collected: 08/07/2018 Status: F Source: [place] 9:19 AM [facility] TYPE CODE TESTS RESULT OUT OF RANGE REFERENCE UNITS LAB L3300.0960 19.9-79.3 pg/mL Normal VITD 1,25 23.4 10654 Result Comment: Performed at: - [facility] [id number] White Washer Piler: Gertrude Melvin MD, Phone: [phone] Performed By: #### L3300.0960 #### [facility] (refer to report for specific site) refer to report for address and phone number SURGERY VISIT REPORT Observed: 08/02/2018 Status: F Source: [place] 1:17 PM [facility] [address] [place] [address] OFFICE VISIT Date of Service: 08/01/18 MR#: [id number] Acct: [id number] Name: DI ZAPATA Rep #: [id number] : 1945 Provider: Huang Alvarado MD Age/Sex: 72/F Location: [facility] Status: Signed Intake Vital Signs08/01/18 Height 5 ft 3 in 08/01/18 Weight: 176 lb Intake Visit Reasons: C-Scope Consult Chief Complaint: sodium thiosulfate Upper Lining Cementer Required: No Is patient in pain?: No [...] PO DAILY cap 08/01/18 [History Confirmed 08/01/18] [facility] Medical History Calciphylaxis (Chronic) Ulcer of left lower extremity with fat layer exposed (Chronic) Ulcer of right lower extremity with fat layer exposed (Chronic) Pain in right leg (Chronic) Pain in left leg (Chronic) Delayed wound healing (Chronic) Localized edema (Chronic) 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 REPOSITORY Telephone (INTMWS) DI ZAPATA ([id number]) 1945 F Date Time Provider Department 07/27/18 AARON TIDWELL INTMWS During your visit today, we recorded the following information about you: Peace Baig LEENA 07/27/2018 2:52 PM Signed ----- Message from Aaron Tidwell sent at 07/27/2018 2:03 PM EDT ----- Anemia and iron better. DM controlled. Kidney disease improved. Peace Safia STERN 07/27/2018 3:01 PM Signed Message left for pt to return call to a nurse. Romain Matt STERN 07/27/2018 3:33 PM Signed Patient notified and voiced her understanding. Martita Simeon, RN, RN 08/01/2018 1:40 PM Signed Lab results faxed to medical records, per pt request. Pt will black pickler on 08/03. Allergies As of Date: 07/27/2018 [...] CAPSULE Take 100 mg by mouth four nakita* COMPOUNDED PRESCRIPTION Thigh High Compression Stocki* Problem [...] [E83.59] INVALID FOR* Encounter Status:Closed by ROMAIN HALEY LPN on 07/27/18 CBC Collected: 07/26/2018 Status: F Source: [place] 11:19 AM [facility] REPOSITORY TYPE CODE TESTS RESULT [...] #### CBC, IRON, BMP, LIPNF, HBA1C #### [facility] [address] [place], [place] [id number] IRON AND TIBC Collected: 07/26/2018 Status: F Source: [place] 11:19 AM [facility] REPOSITORY TYPE CODE TESTS RESULT OUT OF REFERENCE UNITS RANGE LAB IRN 41-186 ug/dL Iron 89 LAB TIBC 232-386 ug/dL TIBC High 427 LAB SAT 15-57 % Transferrin Saturatn 21 Performed By: #### CBC, IRON, BMP, LIPNF, HBA1C #### [facility] [address] [place] [address] BASIC METABOLIC PANL Collected: 07/26/2018 Status: F Source: [place] 11:19 AM [facility] REPOSITORY TYPE CODE TESTS RESULT OUT OF REFERENCE UNITS RANGE LAB GLU 74-99 mg/dL High Glucose 148 Result Comment: The [place] Diabetes Association (ADA) provides guidance for cutoff [...] Standards of Medical Care in Diabetes 2016, [place] Diabetes Association. Diabetes Care. 2016.39(Suppl 1). LAB [...] #### CBC, IRON, BMP, LIPNF, HBA1C #### [facility] [address] [place] [id number] LIPID PANEL, NONFAST Collected: 07/26/2018 Status: F Source: [place] 11:19 AM [facility] REPOSITORY TYPE CODE TESTS RESULT [...] Desk Reference: National Heart, Lung, and Blood [place]. National Institutes of Health. 2001: NIH Publication No. 01-3305. 2. An International Atherosclerosis Society position paper: global recommendations for the management of dyslipidemia: executive summary, Atherosclerosis. 2014: 232(2):410-413. Performed By: #### CBC, IRON, BMP, LIPNF, HBA1C #### [facility] [address] [place] [id number] HEMOGLOBIN A1C Collected: 07/26/2018 Status: F Source: [place] 11:19 AM [facility] REPOSITORY TYPE CODE TESTS RESULT OUT OF REFERENCE UNITS RANGE LAB HGBA1C 4.3-5.6 % High Hemoglobin A1c 6.5 LAB HBA0 mg/dL Est. Average Glucose 140 Result Comment: eAG: (Estimated average glucose) is a calculated value from HgbA1c and is public utilities sales representative of the average blood glucose level in the last 2-3 month period. Performed By: #### CBC, IRON, BMP, LIPNF, HBA1C #### [facility] [address] [place] [id number] ALBUMIN/CREAT RATIO Collected: 07/26/2018 Status: F Source: [place] 11:19 AM [facility] REPOSITORY TYPE CODE TESTS RESULT OUT OF REFERENCE UNITS RANGE LAB UCRR 20-300 mg/dL 12.6 Low Creatinine,Ur ine,Ran LAB UALBR 0.0-23.0 mg/L <12.0 Albumin Urine Random LAB UALBCR 0-30 mg/g Not Albumin/Creat calculated Ratio Performed By: #### UACR #### [facility] [address] [place] [id number] PROGRESS Observed: 07/26/2018 Status: COMPLETED Source: [place] 10:21 AM [facility] REPOSITORY O ID: [id number] Author: Aaron Tidwell Service: (none) Author Type: Physician Type: Progress Notes Filed: 07/26/2018 11:04 AM Note Text: This note was created using 4Bloxter. Subjective Di Zapata is a 72 year [...] Kidney Disease) Stage 3, Gfr 30-59 Ml/Min ([facility]) Hypercalcemia 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) Venous Stasis Ulcers of Both Lower Extremities ([facility]) Depressive Disorder Lumbar Radiculopathy, Chronic Gait Abnormality [...] MD CNOV Observed: 07/26/2018 Status: COMPLETED Source: [place] 9:40 AM [facility] REPOSITORY Office Visit (INTMWS) DI ZAPATA ([id number]) 1945 F Date Time Provider Department 07/26/18 9:40 AM AARON TIDWELL INTROSELYN During your visit today, we recorded the following information about you: Temperature Pulse Respiration Blood pressure 96.8 degrees 84/minute 18/minute 122/74 Weight 78.7 kg Aaron Tidwell MD 07/26/2018 11:04 AM Signed This note was created using PanXchange. Subjective Di Zapata is a 72 year [...] Aaron Tidwell MD Referring Provider: AARON TIDWELL [[id number]] Allergies As of Date: 07/26/2018 Noted Allergy [...] 30 capsuleRfl: 5 CBC [SQCBC] Order #: [id number] FUTURE IRON + TIBC [SQIRON] Order #: [id number] FUTURE HGB A1C [AYEOT2M] Order #: [id number] FUTURE ALBUMIN/CREAT RATIO RND UR [SQUACR] Order #: [id number] FUTURE LIPID PANEL, NONFASTING [SQLIPNF] Order #: [id number] FUTURE BASIC METABOLIC PNL [SQBMP] Order #: [id number] FUTURE Prescriptions as of 07/26/2018 Sig: FLUOXETINE [...] CAPSULE Take 100 mg by mouth four nakita* Problem List As Of Date 07/26/2018 Noted [...] on file. Cosign accepted by MILLICENT BARRIOS [facility][[id number]] on 01/09/2018 9:18 AM Disposition: Return in about 6 months (around 01/23/2019). Follow-up and Disposition History Recorded Encounter Status:Closed by AARON TIDWELL MD on 07/26/18 PTHIN Collected: 07/11/2018 Status: F Source: [place] 9:33 AM [facility] TYPE CODE TESTS RESULT OUT OF RANGE REFERENCE UNITS LAB L509.1000 18.4-80.1 pg/mL Normal PTHIN 58.8 Performed By: #### L509.1000 #### [facility] [address] [place], [address] VITAMIN D 1,25-DIHYDROXY Collected: 07/09/2018 Status: F Source: [place] 10:00 AM [facility] TYPE CODE TESTS RESULT OUT OF RANGE REFERENCE UNITS LAB L3300.0960 19.9-79.3 pg/mL Normal VITD 1,25 21.9 87995 Result Comment: Performed at: [address] [id number] White Washer Piler: Jimmy Patino MD, Phone: [phone] Performed By: #### L3300.0960 #### [facility] (refer to report for specific site) refer to report for address and phone number RENAL PROFILE Collected: 07/09/2018 Status: F Source: [place] 9:58 AM [facility] TYPE CODE TESTS RESULT OUT OF [...] CO2 31.0 Performed By: #### L500.3600 #### [facility] [address] [place], [address] OPERATIVE REPORT Observed: 07/03/2018 Status: F Source: [place] 10:44 PM [facility] Medical Records Department [address] [place] [address] Operative Report 07/03/18 1628 MR#: [id number] Acct: [id number] Name: DI ZAPATA Rep #: [id number] : 1945 72 From: Nora Spain DPM PCP: Aaron Tidwell MD Status: DEP [facility] Y Location: [facility] Problem List (1) Calciphylaxis Status: Chronic (2) [...] utilized materials: amniofill (500 mg) Complications: None industrial coffee grinder: none Type of Anesthesia:: Local MAC - [...] calciphylaxis flareup. She is being treated by railway track worker, Dr. Almonte for long-term management of this [...] with her calciphylaxis medical management with her railway track worker. Nora Spain DPM, [facility] 07/03/18 2244 <Electronically signed by Nora Spain DPM> Date Nora Spain DPM CC: Nora Spain DPM; Aaron Tidwell MD Signed DISCHARGE INSTRUCTION Observed: 07/03/2018 Status: F Source: [place] 2:14 PM [facility] Medical Records Department [address] [place] [address] Instructions for Home/Discharge Instructions 07/03/18 1412 MR#: [id number] Acct: [id number] Name: DI ZAPATA Rep #: [id number] : 1945 72 From: Nora Spain DPM PCP: Aaron Tidwell MD Status: REG KSC Discharge Diet: No Restrictions Discharge Activity: May [...] Dry Allergies/Adverse Reactions: Allergies amlodipine besylate [From [facility]] Allergy (Verified 06/29/18 08:57) Unknown ceftriaxone Allergy [...] Nora Spain DPM When: next mon at [facility]. call sooner if concerns - [phone] Proposed Discharge Date: 07/03/18 07/03/18 1414 <Electronically signed by Nora Spain DPM> Date Nora Spain DPM CC: Aaron Tidwell MD BEDSIDE GLUCOSE Collected: 07/03/2018 Status: F Source: [place] 12:05 PM [facility] TYPE CODE TESTS RESULT OUT OF REFERENCE UNITS RANGE LAB L501.080 70-110 mg/dL High BEDSIDE GLU 112 Result Comment: MANAGEMENT OF PATIENT CARE PER NURSING PROTOCOL Performed By: #### L501.080 #### [facility] Point of Care [address] [place] [address] CNPElder Observed: 06/29/2018 Status: COMPLETED Source: [place] 12:00 AM [facility] REPOSITORY Telephone (INTMWS) DI ZAPATA ([id number]) 1945 F Date Time Provider Department 06/29/18 MILLICENT BARRIOS (KRISTEN) INTHoneyWS During your visit today, we recorded the following information about you: Katie Burgos LPN 06/29/2018 10:11 AM Signed Jace with [facility] calling for pre op clearance done on 06-27-18 by Millicent. She needs the office note and clearance paper she sent over when apt was booked. Lab work was done at [facility] on 06-28-18. PH: [phone], FAX: [phone]. They are in need of this as soon as possible. Surgery is Monday07-03-18. Katie Barrios APRN.SENIOR COMMISSIONS ANALYST 06/29/2018 10:56 AM Signed I am waiting for the results of the CBC done at [facility] in order to clear her. We just checked this morning and they were not resulted yet. We will send as soon as possible KARISSA Corbin Cma 06/29/2018 11:45 AM Signed CBC obtained from [employer] and to Millicent Barrios CNP to review. Veronique Powell Cma 06/29/2018 12:52 PM Signed Faxed Pre Op form to fax number provided. Veronique Powell Cma 06/29/2018 12:58 PM Signed Refaxed all info [...] CAPSULE Take 100 mg by mouth four nakita* COMPOUNDED PRESCRIPTION Thigh High Compression Stocki* Problem [...] 06/28/2018 Status: F Source: [place] 9:31 AM [facility] TYPE CODE TESTS RESULT OUT OF [...] Normal RARE Performed By: #### L100.0100 #### [facility] [address] [place], [address] PROGRESS Observed: 06/27/2018 Status: COMPLETED Source: [place] 10:20 AM [facility] REPOSITORY HNO ID: [id number] Author: Millicent (Kristen) Older Service: (none) Author [...] their regimen. 3. 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 Occassionally gets SOB like she has too much fluid in me. Will notify her insurance agency owner at those times and he usually has [...] week to lower her calcium. Managed by railway track worker Dr. Almonte, next appointment on 07/18. Denies [...] Laterality Date - COLONOSCOP W/ OR W/O [email or web address] SPEC 07/02/07 - EGD W/O OR W/BRUSH/WASH 02/09/01 EGD - ESOPH W/O [facility] SPEC BALLOON DIL 02/09/01 Esophageal dilatation - MAZE PROCEDURE 01/12/2017 [facility], [facility] - MAZE PROCEDURE 05/04/2017 2nd part, [facility] - PAST SURGICAL HISTORY OF 1970 'patent [...] SEASONAL HIGH DOSE AGE 65+ Millicent Older, TITLE I MATH TUTOR.KRISTEN KAMOV Observed: 06/27/2018 Status: COMPLETED Source: [place] 10:20 AM [facility] REPOSITORY Office Visit (INTMWS) DI ZAPATA ([id number]) 1945 F Date Time Provider Department 06/27/18 10:20 AM OLDERMILLICENT (KRISTEN) INTMWS During your visit today, we recorded the following information about you: Temperature Pulse Respiration Blood pressure 97.7 degrees 82/minute 14/minute 120/80 Weight 74.6 kg Millicent Older, TITLE I MATH TUTORMEGGAN 06/27/2018 10:54 AM Signed CC: Patient presents [...] their regimen. 3. 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 Occassionally gets SOB like she has too much fluid in me. Will notify her insurance agency owner at those times and he usually has [...] week to lower her calcium. Managed by railway track worker Dr. Almonte, next appointment on 07/18. Denies [...] Laterality Date - COLONOSCOP W/ OR W/O [facility] SPEC 07/02/07 - EGD W/O OR W/BRUSH/WASH 02/09/01 EGD - ESOPH W/O [facility] SPEC BALLOON DIL 02/09/01 Esophageal dilatation - MAZE PROCEDURE 01/12/2017 [facility] - MAZE PROCEDURE 05/04/2017 2nd part, [facility] - PAST SURGICAL HISTORY OF 1970 'patent [...] SEASONAL HIGH DOSE AGE 65+ Millicent Older, TITLE I MATH TUTOR.SENIOR COMMISSIONS ANALYST Referring Provider: SELF [200] Allergies As of [...] Date Reviewed: 06/27/2018 Reviewed by: Veronique Powell Business Systems Administrator - Fully Assessed Reason for Visit: Pre [...] for vaccination [Z23] Order(s):CBC [SQCBC] Order #: [id number] FUTURE INFLUENZA SEASONAL HIGH DOSE AGE 65+ [[id number]] Order #: [id number] Prescriptions as of 06/27/2018 Sig: PANTOPRAZOLE 40 [...] CAPSULE Take 100 mg by mouth four nakita* COMPOUNDED PRESCRIPTION Thigh High Compression Stocki* OXYCODONE-ACETAMINOPHEN [...] OPERATIVE REPORT Observed: 06/05/2018 Status: F Source: [place] 8:06 AM [facility] Medical Records Department [address] [facility] [address] Operative Report 06/01/18 1510 MR#: [id number] Acct: [id number] Name: DI ZAPATA Rep #: [id number] : 1945 72 From: Nora Spain DPM PCP: Aaron Tidwell MD Status: DEP [facility] Y Location: [facility] Problem List (1) Ulcer of left lower [...] amnio fill, Adaptic and Steri-Strips Complications: None industrial coffee grinder: none Type of Anesthesia:: Local - Preoperative: [...] calciphylaxis flareup. She is being treated by railway track worker, Dr. Almonte for long-term management of this [...] with her calciphylaxis medical management with her railway track worker. Nora Spain DPM, [facility] 06/05/18 0806 <Electronically signed by Nora Spain DPM> Date Nora Spain DPM CC: Nora Spain DPM; Aaron Tidwell MD Signed DISCHARGE INSTRUCTION Observed: 06/01/2018 Status: F Source: [place] 3:04 PM [facility] Medical Records Department [address] [place] [address] Instructions for Home/Discharge Instructions 06/01/18 1503 MR#: [id number] Acct: [id number] Name: DI ZAPATA Rep #: [id number] : 1945 72 From: Nora Spain DPM PCP: Aaron Tidwell MD Status: REG SDC Discharge Diet: No Restrictions Discharge Activity: May [...] Nora Spain DPM When: next Monday at [facility]; call [phone] if questions/concerns Proposed Discharge Date: 06/01/18 06/01/18 1504 <Electronically signed by Nora Spain DPM> Date Nora Spain DPM CC: Aaron Tidwell MD [place] Observed: 05/25/2018 Status: COMPLETED Source: [place] 12:00 AM [facility] REPOSITORY Telephone (INTMWS) DI ZAPATA ([id number]) 1945 F Date Time Provider Department 05/25/18 TIDWELL, ALISSA INTMWS During your visit today, we recorded the following information about you: Katie Cat RN 05/25/2018 11:38 AM Signed Jace quevedo from [facility] #[phone], stating she faxed preop clearance form and copy of [facility] labs for Millicent to review . She needs the form completed and copy of Millicent's office note faxed to her at fax # [phone]. Patient's surgery is 06/01. Please send today if possible. Please review and advise. ANNETTA Gil Cma 05/25/2018 11:50 AM Signed Faxed as requested to number provided. Veronique Barrios APRN.CNP 05/25/2018 1:21 PM Signed FYI, this was all faxed yesterday including signed and completed pre-op clearance form Millicent Barrios APRN.KRISTEN Allergies As of Date: 05/25/2018 Noted Allergy [...] CAPSULE Take 100 mg by mouth four nakita* COMPOUNDED PRESCRIPTION Thigh High Compression Stocki* Problem [...] Status: F Source: [place] PROCEDURE 1:33 PM [facility] Order Comment: Comments: [id number] Cyanide, Occupational Exposure, Whole B Test(s) Ordered: [id number] Cyanide, Occupational Exposure, Whole B TYPE CODE TESTS RESULT OUT OF RANGE REFERENCE UNITS LAB L801.1541 Normal [facility] LAB TEST Result Comment: TEST RESULT LIMITS Cyanide Occ Exposure, Bl Cyanide <0.100 mg/l Analysis performed by [facility], [address] [place] [id number]. Home Care Chaplain: Kory Loja MD, PHD, CLIA: [id number] Normal (unexposed population): non smoker: less than [...] developed and its performance characteristics determined by [facility]. It has not been cleared or approved by the Food and Drug Administration. TESTING PERFORMED AT [employer]. ORIGINAL REPORT ON FILE IN LAB CONTAINS ADDITIONAL TEST SITE INFORMATION. Performed By: #### L801.1541 #### [facility] [address] [place], [address] CBC W/DIFF, AUTOMATED Collected: 05/23/2018 Status: F Source: [place] 1:32 PM [facility] TYPE CODE TESTS RESULT OUT OF [...] COMMENT SCANNED Performed By: #### L100.0100 #### [facility] [address] [place], [address] COMPREHENSIVE METABOLIC Collected: 05/23/2018 Status: F Source: [facility] 1:32 PM [facility] TYPE CODE TESTS RESULT OUT OF [...] GAP 9 Performed By: #### L500.4050 #### [facility] [address] [place] [address]. [place], [place], [id number] PROGRESS Observed: 05/23/2018 Status: COMPLETED Source: [place] 11:23 AM [facility] REPOSITORY O ID: [id number] Author: Millicent (Kristen) Older Service: (none) Author Type: Nurse Practitioner Type: Progress Notes Filed: 05/23/2018 1:54 PM Note Text: CC: Patient presents with: Pre-Op Exam HPI [...] their regimen. 3. 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 Occassionally gets SOB like she has too much fluid in me. Will notify her insurance agency owner at those times and he usually has [...] week to lower her calcium. Managed by railway track worker Dr. Almonte. Denies any complications. REVIEW OF [...] Laterality Date - COLONOSCOP W/ OR W/O [facility] SPEC 07/02/07 - EGD W/O OR W/BRUSH/WASH 02/09/01 EGD - ESOPH W/O [facility] SPEC BALLOON DIL 02/09/01 Esophageal dilatation - MAZE PROCEDURE 01/12/2017 [facility] - MAZE PROCEDURE 05/04/[address] [place] [address] - PAST SURGICAL HISTORY OF 1970 'patent [...] APRN.CNP CNOV Observed: 05/23/2018 Status: COMPLETED Source: [place] 11:20 AM [facility] REPOSITORY Office Visit (INTMWS) EMMADI CAN ([id number]) 1945 F Date Time Provider Department 05/23/18 [...] their regimen. 3. 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 Occassionally gets SOB like she has too much fluid in me. Will notify her insurance agency owner at those times and he usually has [...] week to lower her calcium. Managed by railway track worker Dr. Almonte. Denies any complications. REVIEW OF [...] Laterality Date - COLONOSCOP W/ OR W/O [facility] SPEC 07/02/07 - EGD W/O OR W/BRUSH/WASH 02/09/01 EGD - ESOPH W/O [facility] SPEC BALLOON DIL 02/09/01 Esophageal dilatation - MAZE PROCEDURE 01/12/2017 [facility] - MAZE PROCEDURE 05/04/[address] [place] [address], [facility] - PAST SURGICAL HISTORY OF 1970 'patent [...] surgery pending results of lab work-up. Millicent Barrios, TITLE I MATH TUTOR.SENIOR COMMISSIONS ANALYST Referring Provider: NORA SPAIN [[id number]] Allergies As of Date: 05/23/2018 Noted Allergy [...] Date Reviewed: 05/23/2018 Reviewed by: Veronique Powell Business Systems Administrator - Fully Assessed Reason for Visit: Pre-Op Exam [87] Primary Visit Diagnosis:Preop exam for internal medicine [Z01.818] Order(s):CBC + DIFF [SQCBCDIF] Order #: [id number] FUTURE COMP METABOLIC PANEL [SQCMP] Order #: [id number] FUTURE Prescriptions as of 05/23/2018 Sig: PANTOPRAZOLE [...] CAPSULE Take 100 mg by mouth four nakita* COMPOUNDED PRESCRIPTION Thigh High Compression Stocki* FUROSEMIDE [...] BLOOD CNT Collected: 05/14/2018 Status: F Source: [place] NO DIFF 9:38 AM [facility] TYPE CODE TESTS RESULT OUT OF [...] 10.2 Performed By: #### L100.0500, L100.4500 #### [facility] [address] [place], [address] DIFFERENTIAL COMMENT Collected: 05/14/2018 Status: F Source: [place] 9:38 AM [facility] TYPE CODE TESTS RESULT OUT OF RANGE REFERENCE UNITS LAB L100.4500 Normal SMEAR COMMENT COMMENT Result Comment: SLIDE SCANNED - 1+ ANISO. Performed By: #### L100.0500, L100.4500 #### [facility] [address] [place], [address] VITAMIN D,25 HYDROXY Collected: 05/14/2018 Status: F Source: [place] 9:38 AM [facility] TYPE CODE TESTS RESULT OUT OF RANGE REFERENCE UNITS LAB L506.1000 29.95-100.01 ng/mL Normal Vitamin D 31.2 25-OH Result Comment: Vitamin D 25(OH) Status Range Deficiency <20 ng/mL (50nmol/L) Insuffciency 20 - 30 ng/mL (50 - 75 nmol/L) Sufficiency 30 - 100 ng/mL (75 - 250 nmol/L) Toxicity >100 ng/mL (>250 nmol/L) Performed By: #### L506.1000 #### [facility] [address] [place], [address] RENAL PROFILE Collected: 05/14/2018 Status: F Source: [place] 9:38 AM [facility] [place] TYPE CODE TESTS RESULT OUT OF [...] Performed By: #### L500.3600, L503.6030, L503.6550 #### [facility] [address] [facility] [place], [place], [id number] IRON+IRON BINDING Collected: 05/14/2018 Status: F Source: [facility] 9:38 AM [facility] [place] TYPE CODE TESTS RESULT OUT OF RANGE REFERENCE UNITS LAB L503.6075 250-450 ug/dL TIBC Normal 422 LAB L503.6150 50-170 ug/dL Low IRON 41 LAB L503.6250 15.0-55.0 % Low IRON SATURATION 9.7 Performed By: #### L500.3600, L503.6030, L503.6550 #### [facility] [address] [place], [address] FERRITIN Collected: 05/14/2018 Status: F Source: [place] 9:38 AM [facility] [place] TYPE CODE TESTS RESULT OUT OF RANGE REFERENCE UNITS LAB L503.6550 8-252 ng/mL Normal FERRITIN 21 Performed By: #### L500.3600, L503.6030, L503.6550 #### [facility] [address] [place], [place], [address] VITAMIN D 1,25-DIHYDROXY Collected: 05/14/2018 Status: F Source: [place] 9:38 AM [facility] [place] TYPE CODE TESTS RESULT OUT OF RANGE REFERENCE UNITS LAB L3300.0960 19.9-79.3 pg/mL Normal VITD 1,25 68.7 48591 Result Comment: Performed at: - [facility] [id number] White Washer Piler: Jimmy Patino MD, Phone: [phone] Performed By: #### L3300.0960 #### [facility] (refer to report for specific site) refer to report for address and phone number URINE DRUG SCREEN Collected: 05/01/2018 Status: F Source: [place] (VISTA) 11:11 AM [facility] Order Comment: Comments: [id number] URINE DRUG SCREEN List of Drugs Taken [...] NEGATIVE Performed By: #### L505.5000 #### [place] [facility] [address] [place], [place], [id number] MISCELLANEOUS LAB Collected: 05/01/2018 Status: F Source: [place] PROCEDURE 11:11 AM [facility] Order Comment: Comments: [id number] URINE DRUG SCREEN Test(s) Ordered: [id number] URINE DRUG SCREEN TYPE CODE TESTS RESULT OUT OF RANGE REFERENCE UNITS LAB L801.1541 Normal [facility] LAB TEST Result Comment: [id number] 6+OXYCODONE-BUND (ng/mL) DRUG RESULT SCREEN CUTOFF ____ [...] includes Oxydodone and Oxymorphone. TESTING PERFORMED AT [facility]. ORIGINAL REPORT ON FILE IN LAB CONTAINS ADDITIONAL TEST SITE INFORMATION. Performed By: #### L801.1541 #### [facility] [address] [place], [address] SURGERY VISIT REPORT Observed: 04/14/2018 Status: F Source: [place] 12:17 PM [facility] [place] [address] [place] [address] OFFICE VISIT Date of Service: 04/12/18 MR#: [id number] Acct: [id number] Name: DI ZAPATA Rep #: [id number] : 1945 Provider: Huang Alvarado MD Age/Sex: 72/F Location: [facility] Status: Signed Intake Vital Signs04/12/18 Height 5 ft 3 in 04/12/18 Weight: 159 lb 04/12/18 Body Mass Index (BMI) 28.1 Intake Visit Reasons: COLONOSCOPY - STRONG ENOUGH? 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) Abnormal screening CT [...] with 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 (Chronic) Cellulitis (Resolved) detention current use of anticoagulant (Chronic) Chronic atrial [...] Cosigner Signature: Date (if applicable) CC: Aaron iTdwell MD 12 LEAD ELECTROCARDIOGRAM Observed: 04/10/2018 Status: F Source: [place] 12:48 PM [facility] Cardiovascular Services [address] [place] [address] 12 Lead EKG 04/08/18 1309 MR#: [id number] Acct: [id number] Name: DI ZAPATA Rep #: [id number] : 1945 72 From: Epifanio Childers MD [...] ECG Confirmed by EPIFANIO CHILDERS MD ([id number]), city editor CARLENE NELSON ([id number]) on 04/10/2018 12:48:05 PM Referred By: PATRICIA Confirmed By:EPIFANIO CHILDERS MD 04/10/18 1248 Date Epifanio Childers MD CC: Esa Roca MD; Aaron Tidwell MD Signed CARDIOLOGY VISIT Observed: 04/10/2018 Status: F Source: [place] REPORT 10:28 AM [facility] [address] [place] [address] OFFICE VISIT Date of Service: 04/10/18 MR#: [id number] Acct: [id number] Name: DI ZAPATA Rep #: [id number] : 1945 Provider: Epifanio Childers MD Age/Sex: 72/F [place] [facility] Status: Signed HPI HPI Chief Complaint: Follow up Details: DI ZAPATA, [...] says that she is been seeing the railway track worker who has adjusted her diuretic therapy. She [...] Lt brachial Intake Visit Reasons: 6 M FU Upper Lining Cementer Required: No Accompanied by: none Is patient [...] 04/10/18] Ejection fraction %: 55 to 59 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 We will continue [...] Date (if applicable) CC: Aaron Tidwell MD [facility] Observed: 04/10/2018 Status: COMPLETED Source: [place] 12:00 AM [facility] REPOSITORY Patient Outreach (INTMWH) DI ZAPATA ([id number]) 1945 F Date Time Provider Department 04/10/18 AARON TIDWELL INT[facility] During your visit today, we recorded the [...] Order(s):ALBUMIN/CREAT RATIO RND UR [SQUACR] Order #: [id number] FUTURE LIPID PANEL BASIC [SQLIPB] Order #: [id number] FUTURE Prescriptions as of 04/10/2018 Sig: PANTOPRAZOLE [...] CAPSULE Take 100 mg by mouth four nakita* COMPOUNDED PRESCRIPTION Thigh High Compression Stocki* Problem [...] Calcinosis [E83.59] INVALID FOR* Encounter Status:Closed by OSR Open Systems ResourcesUSER on 07/06/18 CXR FOR LINE PLACEMENT Observed: 04/09/2018 Status: F Source: [place] 10:04 AM [facility] Imaging Services [address] [place] [address] CXR for Line Placement MR#: [id number] Acct: [id number] Name: DI ZAPATA Rep #: [id number] : 1945 F 72 From: Carlos Cai MD PCP: Aaron Tidwell MD Status: REG CLI Study: CXR for Line Placement Date of Exam: 04/09/18 Exam# [id number] Ordering Dr: Mira Almnote DO STUDY: X-RAY CHEST REASON FOR EXAM: [...] Carlos Cai MD at 10:53 EDT Tel [phone], Service support , CC: Mira Almonte DO; Aaron Tidwell MD Lead Web Application Developer: Signed EMERGENCY DEPARTMENT Observed: 04/08/2018 Status: F Source: [place] SUMMARY 3:37 PM [facility] Medical Records Department [address] [place] [address] Emergency Department Summary 04/08/18 1522 MR#: [id number] Acct: [id number] Name: DI ZAPATA Rep #: [id number] : 1945 72 From: Esa Roca MD PCP: Aaron Tidwell MD Status: REG ER - ER Visit Summary Date of Service: 04/08/18 Chief Complaint: Shortness of breath History of Present Illness: The patient is a 72 F who presents with shortness of breath, dyspnea on exertion. She states she has history of CHF and atrial fibrillation. She states her insurance agency owner Dr. Epifanio Childers. She denies fever, chills [...] discharge to follow-up with Dr. Childers her insurance agency owner if no improvement in the next couple [...] 2 diabetes This note was generated with Telik dictation software. It may contain incorrect words, [...] your Primary Care Provider. Call [facility] ([phone]) or report to the closest Emergency Room. Call 911 if necessary. 04/08/18 1537 <Electronically signed by Esa Roca MD> Date Esa Roca MD Cosigner Signature (If Indicated): Date CC: Epifanio Childers MD; Aaron Tidwell MD BASIC METABOLIC Collected: 04/08/2018 Status: F Source: [place] PROFILE ([facility]) 2:59 PM [facility] Order Comment: REDRAW. PREVIOUS SPECIMEN REJECTED DUE TO HEMOLYZED. 04/08/18 1447 [facility] '[facility]OP' Serial specimen #1, #2, #3, or [...] 8 Performed By: #### L500.2500, L501.4010 #### [facility] [address] [facility] [place], [address] TROPONIN-I Collected: 04/08/2018 Status: F Source: [place] 2:59 PM [facility] Order Comment: REDRAW. PREVIOUS SPECIMEN REJECTED DUE TO HEMOLYZED. 04/08/18 1447 Erica Walsh. 'TROP' Serial specimen #1, #2, #3, or #4: 1 TYPE CODE TESTS RESULT OUT OF RANGE REFERENCE UNITS LAB L501.4010 <0.045 ng/mL Normal < 0.015 TROPONIN-I Result Comment: TROPONIN-I EXPECTED VALUES <0.045 Negative 0.045 - 0.590 Consistent with Cardiac Damage > OR = 0.600 Critical Value Not every elevated troponin is indicative of AZ. These values should be used with clinical judgement in examining the patient's clinical picture for diagnosis. To establish a diagnosis of AZ versus myocardial injury, there must be a demonstrated rise and/or fall in the troponin values, in addition to ischemic symptoms, EKG changes, new regional wall motion abnormality, and/or angiographical evidence. PLEASE NOTE: REFERENCE RANGES EDITED 18 Performed By: #### L500.2500, L501.4010 #### [facility] [address] [facility] [place], [place], [address] CBC W/DIFF, AUTOMATED Collected: 04/08/2018 Status: F Source: [place] 1:39 PM [facility] TYPE CODE TESTS RESULT OUT OF [...] Lymph 1.15 Performed By: #### L100.0100 #### [facility] [address] [place], [place], [address] BNP,B-TYPE NATRIURETIC Collected: 04/08/2018 Status: F Source: [place] 1:39 PM [facility] [place] TYPE CODE TESTS RESULT OUT OF RANGE REFERENCE UNITS LAB L503.6620 0-100 pg/mL High B-TYPE 270.3 ESTIVEN PEP Performed By: #### L503.6620 #### [facility] [address] [place], [place], [address] CHEST PA AND LATERAL Observed: 04/08/2018 Status: F Source: [place] 12:52 PM [facility] RE[facility] Imaging Services [address] [place] [address] Chest PA and Lateral MR#: [id number] Acct: [id number] Name: DI ZAPATA Rep #: [id number] : 1945 F 72 From: Emory Alvares MD PCP: Aaron Tidwell MD Status: REG ER Study: Chest PA and Lateral Date of Exam: 04/08/18 Exam# [id number] Ordering Dr: Esa Roca MD STUDY: X-RAY [...] CC: Esa Roca MD; Aaron Tidwell MD Lead Web Application Developer: Signed RENAL PROFILE Collected: 03/26/2018 Status: F Source: [place] 9:23 AM [facility] [place] TYPE CODE TESTS RESULT OUT OF [...] CO2 29.0 Performed By: #### L500.3600 #### [facility] [address] [facility] [place], [address] DOWNTIME REPORT Observed: 03/15/2018 Status: F Source: [place] 11:53 AM [facility] Medical Records Department [address] [facility] [place] [address] Downtime Report MR#: [id number] Acct: [id number] Name: DI ZAPATA Rep #: [id number] : 1945 72 From: Hunter Nelson PCP: Aaron Tidwell MD Status: REG RCR This patient was seen during an EMR downtime February 26, 2018 - March 05, 2018. This patient may have a combination of paper and electronic documentation or all paper documentation. All documentation is viewable within the e-chart portion of [employer] for each patient visit. RENAL PROFILE Collected: 02/22/2018 Status: F Source: [place] 11:03 AM [facility] TYPE CODE TESTS RESULT OUT OF [...] CO2 29.0 Performed By: #### L500.3600 #### [facility] [address] [facility] [place], [place], [address] HEMOGLOBIN A1C Collected: 02/20/2018 Status: F Source: [place] 10:55 AM [facility] [place] REPOSITORY TYPE CODE TESTS RESULT OUT OF REFERENCE UNITS RANGE LAB HGBA1C 4.3-5.6 % High Hemoglobin A1c 6.0 LAB HBA0 mg/dL Est. Average Glucose 126 Result Comment: eAG: (Estimated average glucose) is a calculated value from HgbA1c and is public utilities sales representative of the average blood glucose level in the last 2-3 month period. Performed By: #### HBA1C, IRON #### [facility] [address] [place], [place] [address] IRON AND TIBC Collected: 02/20/2018 Status: F Source: [place] 10:55 AM [facility] REPOSITORY TYPE CODE TESTS RESULT OUT OF REFERENCE UNITS RANGE LAB IRN 41-186 ug/dL Low Iron 21 LAB TIBC 232-386 ug/dL TIBC 376 LAB SAT 15-57 % Low Transferrin Saturatn 6 Performed By: #### HBA1C, IRON #### [facility] [address] [place], [place] [address] PROGRESS Observed: 02/20/2018 Status: COMPLETED Source: [place] 9:54 AM [facility] REPOSITORY HNO ID: [id number] Author: Aaron Tidwell Service: (none) Author Type: Physician Type: Progress Notes Filed: 02/21/2018 2:30 PM Note Text: This note was created using PanXchange. Subjective Di Zapata is a 72 year [...] grafts done last week. Dr. 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 REPOSITORY Office Visit (INTMWS) DI ZAPATA ([id number]) 1945 F Date Time Provider Department 02/20/18 9:20 AM AARON TIDWELL INTMWS During your visit today, we recorded the following information about you: Temperature Pulse Respiration Blood pressure 98.1 degrees 88/minute 20/minute 114/62 Weight 76.7 kg Aaron Tidwell MD 02/21/2018 2:30 PM Signed This note was created using SimpleCrewriter. Subjective Di Zapata is a 72 year [...] grafts done last week. Dr. Almonte, her railway track worker was monitoring her calcium, as she had [...] High Compression Stockings 30- 40 mm DX: Paulina- I89.0 (Patient not taking: Reported on 02/20/2018 [...] Aaron Tidwell MD Referring Provider: AARON TIDWELL [[id number]] Allergies As of Date: 02/20/2018 Noted Allergy [...] 5 IRON + TIBC [SQIRON] Order #: [id number] FUTURE HGB A1C [GSTYE5I] Order #: [id number] FUTURE Prescriptions as of 02/20/2018 Sig: COMPOUNDED [...] CAPSULE Take 100 mg by mouth four nakita* PANTOPRAZOLE 40 MG TABLET,DEL* Take 1 tablet by mouth twice * POLYSACCHARIDE IRON COMPLEX 1* Take 1 capsule by mouth once * SANTYL 250 UNIT/GRAM TOPICAL * Apply 1 application to affect* COMPOUNDED PRESCRIPTION Thigh High Compression Stocki* Patient not taking: Reported on 02/20/2018 Medication notes this encounter POLYSACCHARIDE IRON COMPLEX 150 MG IRON CAPSULE >> Luz E Ankur RDA 02/20/2018 9:23 AM >> ANKUR, LUZ E RDA MonFebruary 20, 2018 9:23 AM Patient ran out of med SANTYL 250 UNIT/GRAM TOPICAL OINTMENT >> Luz E Ankur RDA 02/20/2018 9:27 AM >> ANKUR, LUZ E RDA MonFebruary 20, 2018 9:27 AM To expensive [...] 02/01/2018 Status: F Source: [place] 2:43 PM [facility] Order Comment: DR ALMONTE WANTS TO ADD A VITD 1,25 DIHYDROXY TYPE CODE TESTS RESULT OUT OF RANGE REFERENCE UNITS LAB L3300.0960 19.9-79.3 pg/mL Normal VITD 1,25 37.3 [address] Result Comment: Performed at: - [facility] [id number] White Washer Piler: Jimmy Patnio MD, Phone: [phone] Performed By: #### L3300.0960 #### [facility] (refer to report for specific site) refer to report for address and phone number RENAL PROFILE Collected: 01/31/2018 Status: F Source: [place] 2:43 PM [facility] TYPE CODE TESTS RESULT OUT OF [...] CO2 29.0 Performed By: #### L500.3600 #### [facility] [address] [place], [place], [address] VITAMIN D,25 HYDROXY Collected: 01/31/2018 Status: F Source: [place] 2:43 PM [facility] TYPE CODE TESTS RESULT OUT OF REFERENCE UNITS RANGE LAB L506.1000 29.95-100.01 ng/mL Low Vitamin D 27.6 25-OH Result Comment: Vitamin D 25(OH) Status Range Deficiency <20 ng/mL (50nmol/L) Insuffciency 20 - 30 ng/mL (50 - 75 nmol/L) Sufficiency 30 - 100 ng/mL (75 - 250 nmol/L) Toxicity >100 ng/mL (>250 nmol/L) Performed By: #### L506.1000 #### [facility] [address] [facility] [place], [address] CBC AND DIFFERENTIAL Collected: 01/24/2018 Status: F Source: [place] 1:30 PM [facility] REPOSITORY TYPE CODE TESTS RESULT [...] Low Abs Lymph 0.89 LAB AMONO % Hunt% 5.9 LAB AAMONO <0.87 k/uL Abs Hunt 0.69 LAB AEOS % Eosin% 0.5 LAB AAEOS <0.46 k/uL Abs Eosin 0.06 LAB ABASO % Baso% 0.3 LAB AABASO <0.11 k/uL Abs Baso 0.03 LAB AUNRBC 0 /100 WBC NRBCs 0.0 LAB ABNRBC <0.01 k/uL Absolute nRBC <0.01 LAB DTYP DTYPE Auto Diff Performed By: #### CBCDIF #### [facility] [address] [place] [id number] CNPN Observed: 01/16/2018 Status: COMPLETED Source: [place] 12:00 AM [facility] REPOSITORY Telephone (KeteraWS) DI ZAPATA ([id number]) 1945 F Date Time Provider Department 01/16/18 [...] kidney disease. I recommend she see her railway track worker, Dr. Srinath Almonte to discuss treatment options. Continue wound care and pain management. Millicent Older, TITLE I MATH TUTOR.SENIOR COMMISSIONS ANALYST 01/18/2018 7:41 AM Signed Please call patient and let her know Dr. Tidwell spoke with Dr. Morales. He wants patient to follow-up with her railway track worker for the calcium issues because it is due to her chronic kidney disease. I will not be able to treat for this, does she still want an appointment with me today? Millicent Sophie, TITLE I MATH TUTOR.KRISTEN Powell Cma 01/18/2018 7:47 AM Signed Left message for [...] Date Reviewed: 01/09/2018 Reviewed by: Veronique Powell Cma - Fully Assessed Reason for Visit: Appointment [...] CAPSULE Take 100 mg by mouth four nakita* FUROSEMIDE 20 MG TABLET Take 1 tablet [...] AND DIFFERENTIAL Collected: 01/09/2018 Status: F Source: [place] 8:56 AM [facility] REPOSITORY TYPE CODE TESTS RESULT [...] k/uL Abs Lymph 1.27 LAB AMONO % Hunt% 6.2 LAB AAMONO <0.87 k/uL Abs Hunt 0.75 LAB AEOS % Eosin% 0.7 LAB AAEOS <0.46 k/uL Abs Eosin 0.09 LAB ABASO % Baso% 0.2 LAB AABASO <0.11 k/uL Abs Baso <0.03 LAB AUNRBC 0 /100 WBC NRBCs 0.0 LAB ABNRBC <0.01 k/uL Absolute nRBC <0.01 LAB DTYP DTYPE Auto Diff Performed By: #### CBCDIF, FT4, T3, BMP, TSH #### [facility] [address] [place] [address] FREE T4 Collected: 01/09/2018 Status: F Source: [place] 8:56 AM [facility] REPOSITORY TYPE CODE TESTS RESULT OUT OF RANGE REFERENCE UNITS LAB FT4 0.9-1.7 ng/dL Free T4 1.2 Performed By: #### CBCDIF, FT4, T3, BMP, TSH #### [facility] [address] [place] [address] T3 Collected: 01/09/2018 Status: F Source: [facility] 8:56 AM [facility] REPOSITORY TYPE CODE TESTS RESULT OUT OF RANGE REFERENCE UNITS LAB T3 79-165 ng/dL Low T3 70 Performed By: #### CBCDIF, FT4, T3, BMP, TSH #### [facility] [address] [place] [address] BASIC METABOLIC PANL Collected: 01/09/2018 Status: F Source: [place] 8:56 AM [facility] REPOSITORY TYPE CODE TESTS RESULT OUT OF REFERENCE UNITS RANGE LAB GLU 74-99 mg/dL High Glucose 136 Result Comment: The [place] Diabetes Association (ADA) provides guidance for cutoff [...] Standards of Medical Care in Diabetes 2016, [place] Diabetes Association. Diabetes Care. 2016.39(Suppl 1). LAB [...] #### CBCDIF, FT4, T3, BMP, TSH #### [facility] [address] [place], [place] [address] TSH Collected: 01/09/2018 Status: F Source: [place] 8:56 AM [facility] REPOSITORY TYPE CODE TESTS RESULT OUT OF RANGE REFERENCE UNITS LAB TSH 0.400-5.500 uU/mL TSH 3.600 Performed By: #### CBCDIF, FT4, T3, BMP, TSH #### [facility] [address] [place], [place] [address] PROGRESS Observed: 01/09/2018 Status: COMPLETED Source: [place] 7:54 AM [facility] REPOSITORY HNO ID: [id number] Author: Veronique Powell Business Systems Administrator Service: (none) Author Type: (none) Type: Progress Notes Filed: 01/09/2018 7:55 AM Note Text: Note copied into patient's progress note for TCM today. PROGRESS Observed: 01/09/2018 Status: COMPLETED Source: [place] 7:51 AM [facility] [facility] REPOSITORY HNO ID: [id number] Author: Millicent Allred) Older Service: (none) Author Type: Nurse Practitioner Type: Progress Notes Filed: 01/09/2018 9:15 AM Note Text: TRANSITION CARE MANAGEMENT (TCM) INITIAL CONTACT ? ? Provider Action/FYI: Pt w/diarrhea last couple days in hosp and currently. taking Imodium. OFF Anti-coag currently ? ? Initial contact with patient post discharge, spoke to Di. Patient identified by name and . ? SUMMARY: -Pt discharged from [facility] TCU on 12-31-17. Adm [facility] 12/07 w/GI bleed -Follow up appointment on 01/05 w/Millicent Barrios for TCM-7. -Medication review done w/pt. -Admitted for: GI Bleed then to TCU for debility. CONCERNS: Having diarrhea. Started Immodium this AM, will take another one later if no better. Has leg wounds. She has [facility] HH assisting post hospitalization. SHE HAS A FIB [...] Accu-Cheks and insulin sliding scale (Copied from [employer]) Transitional Care Management Progress Note The [...] at today?s visit. CC: Patient presents with: [facility] D/C: TCM HPI Di Zapata is a 72 year old female who presents today for hospital and mcc follow-up. Date of visit: [facility] 12/07 to 12/22. TCU 12/12 to [...] for skin biopsy. Still trying to find sugar cane farm manager that is covered by insurance to schedule [...] Laterality Date - COLONOSCOP W/ OR W/O [facility] SPEC 07/02/07 - EGD W/O OR W/BRUSH/WASH 02/09/01 EGD - ESOPH W/O [facility] SPEC BALLOON DIL 02/09/01 Esophageal dilatation - MAZE PROCEDURE 01/12/2017 [facility], [facility] - MAZE PROCEDURE 05/04/2017 2nd part, [facility] - PAST SURGICAL HISTORY OF 1970 'patent [...] Patient agreeable to treatment plan. Millicent Barrios APRN.SENIOR COMMISSIONS ANALYST CNOV Observed: 01/09/2018 Status: COMPLETED Source: [place] 7:40 AM [facility] REPOSITORY Office Visit (INTMWS) DI ZAPATA ([id number]) 1945 F Date Time Provider Department 01/09/18 7:40 AM OLDER, MILLICENT (KRISTEN) INTMWS During your visit today, we recorded the following information about you: Temperature Pulse Respiration Blood pressure 97.6 degrees 100/minute 16/minute 90/58 Weight 74.4 kg Millicent Barrios, T[employer] MATH TUTORMEGGAN 01/09/2018 9:15 AM Signed TRANSITION CARE MANAGEMENT (TCM) INITIAL CONTACT ? ? Provider Action/FYI: Pt w/diarrhea last couple days in hosp and currently. taking Imodium. OFF Anti-coag currently ? ? Initial contact with patient post discharge, spoke to Di. Patient identified by name and . ? SUMMARY: -Pt discharged from [facility] TCU on 12-31-17. Adm [facility] 12/07 w/GI bleed -Follow up appointment on 01/05 w/Millicent Barrios for TCM-7. -Medication review done w/pt. -Admitted for: GI Bleed then to TCU for debility. CONCERNS: Having diarrhea. Started Immodium this AM, will take another one later if no better. Has leg wounds. She has [facility] assisting post hospitalization. SHE HAS A FIB [...] Accu-Cheks and insulin sliding scale (Copied from [employer]) Transitional Care Management Progress Note The [...] at today?s visit. CC: Patient presents with: [facility] D/C: TCM HPI Di Zapata is a 72 year old female who presents today for hospital and mcc follow-up. Date of visit: [facility] 12/07 to 12/22. TCU 12/12 to [...] for skin biopsy. 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 Lenard Del Angel) [phone], [facility] dermatology (Dr. Morales) [phone] If you are unable to get a [...] Date Reviewed: 01/09/2018 Reviewed by: Veronique Powell Business Systems Administrator - Fully Assessed Reason for Visit: [facility] D/C [Other] Cmt: TCM Primary Visit [...] 5 BASIC METABOLIC PNL [SQBMP] Order #: [id number] FUTURE CBC + DIFF [SQCBCDIF] Order #: [id number] FUTURE Prescriptions as of 01/09/2018 Sig: FLUOXETINE 20 MG CAPSULE Take 1 capsule by mouth once * MORPHINE ER 15 MG TABLET,EXTE* Take 1 tablet by mouth every * GABAPENTIN 100 MG CAPSULE Take 100 mg by mouth four nakita* FUROSEMIDE 20 MG TABLET Take 1 tablet [...] INVALID FOR* Other instructions from your clinician: Weaver D[place] in [place]: [facility] (Dr. Lenard Del Angel) [phone], [facility] dermatology (Dr. Morales) [phone] If you are unable to get a [...] 01/09/18 PROGRESS Observed: 01/02/2018 Status: COMPLETED Source: [place] 5:36 PM [facility] REPOSITORY HNO ID: [id number] Author: Becka Kingsley Service: (none) Author Type: [...] Concerns: Doing better, will see on Monday. Carroter plan for next outreach: Will follow up Fir at appt Signature Becka Kingsley RN Ambulatory Sales Engagement [facility] January 02, 2018 DIANA Observed: 01/02/2018 Status: COMPLETED Source: [place] 12:00 AM [facility] REPOSITORY Patient Outreach (INTMWS) DI ZAPATA ([id number]) 1945 F Date Time Provider Department 01/02/18 [...] Concerns: Doing better, will see on Monday. [place] plan for next outreach: Will follow up Fir at appt Signature Becka Kingsley RN Ambulatory Sales Engagement [facility] January 02, 2018 Allergies As of Date: [...] LPN - Fully Assessed Reason for Visit: [facility] Engagement [facility] Follow Up [9562] Prescriptions as of 01/02/2018 Sig: FLUOXETINE 20 MG CAPSULE Take 1 capsule by mouth once * RIVAROXABAN 15 MG TABLET Take 15 mg by mouth daily wit* SANTYL 250 UNIT/GRAM TOPICAL * Apply 1 application to affect* MORPHINE ER 15 MG TABLET,EXTE* Take 1 tablet by mouth every * GABAPENTIN 100 MG CAPSULE Take 100 mg by mouth four nakita* FUROSEMIDE 20 MG TABLET Take 1 tablet [...] 01/02/18 PROGRESS Observed: 01/01/2018 Status: COMPLETED Source: [place] 3:41 PM [facility] REPOSITORY [facility] ID: [id number] Author: Becka Kingsley Service: (none) Author Type: Registered Nurse Type: Progress Notes Filed: 01/09/2018 7:55 AM Note Text: TRANSITION CARE MANAGEMENT (TCM) INITIAL CONTACT Provider Action/FYI: Pt w/diarrhea last couple days in hosp and currently. taking Imodium. OFF Anti-coag currently Initial contact with patient post discharge, spoke to Di. Patient identified by name and . SUMMARY: -Pt discharged from [facility] TCU on 12-31-17. Adm [facility] 12/07 w/GI bleed -Follow up appointment on 01/05 w/Millicent Older for TCM-7. -Medication review done w/pt. -Admitted for: GI Bleed then to TCU for debility. CONCERNS: Having diarrhea. Started Immodium this AM, will take another one later if no better. Has leg wounds. She has [facility] assisting post hospitalization. SHE HAS A FIB [...] Accu-Cheks and insulin sliding scale (Copied from [employer]) CNPTOUTREACH Observed: 01/01/2018 Status: COMPLETED Source: [place] 12:00 AM [facility] REPOSITORY Patient Outreach (INTMWS) DI ZAPATA ([id number]) 1945 F Date Time Provider Department 01/01/18 BECKA HONG During your visit today, we recorded the following information about you: Becka Aguayo, RN 01/09/2018 7:55 AM Signed TRANSITION CARE MANAGEMENT (TCM) INITIAL CONTACT Provider Action/FYI: Pt w/diarrhea last couple days in hosp and currently. taking Imodium. OFF Anti-coag currently Initial contact with patient post discharge, spoke to Di. Patient identified by name and . SUMMARY: -Pt discharged from [facility] TCU on 12-31-17. Adm [facility] 12/07 w/GI bleed -Follow up appointment on 01/05 w/Millicent [facility] for TCM-7. -Medication review done w/pt. -Admitted for: GI Bleed then to TCU for debility. CONCERNS: Having diarrhea. Started Immodium this AM, will take another one later if no better. Has leg wounds. She has [facility] assisting post hospitalization. SHE HAS A FIB [...] Accu-Cheks and insulin sliding scale (Copied from [employer]) Veronique Powell [facility] 01/09/2018 7:55 AM Signed Note copied into [...] LPN - Fully Assessed Reason for Visit: Sales Engagement [facility] Follow Up [7877] Order(s):predniSONE (DELTASONE) 10 mg tabletTake 1 tablet by mouth once daily.Disp: Rfl: Prescriptions as of 01/01/2018 Sig: FLUOXETINE 20 MG CAPSULE Take 1 capsule by mouth once * GABAPENTIN 100 MG CAPSULE Take 100 mg by mouth four nakita* FUROSEMIDE 20 MG TABLET Take 1 tablet [...] once daily. Cosign required by MILLICENT BARRIOS ([facility])[[id number]] Encounter Status:Closed by VERONIQUE POWELL CMA on 01/09/18 BEDSIDE GLUCOSE Collected: 12/31/2017 Status: F Source: [place] 6:26 AM [facility] [place] TYPE CODE TESTS RESULT OUT OF RANGE REFERENCE UNITS LAB L501.080 70-110 mg/dL Normal BEDSIDE GLU 91 Result Comment: MANAGEMENT OF PATIENT CARE PER NURSING PROTOCOL Performed By: #### L501.080 #### [place] Laboratory Point of Care [address] [place] [address] BEDSIDE GLUCOSE Collected: 12/30/2017 Status: F Source: [place] 6:40 AM [facility] [place] TYPE CODE TESTS RESULT OUT OF RANGE REFERENCE UNITS LAB L501.080 70-110 mg/dL Normal BEDSIDE GLU 86 Result Comment: MANAGEMENT OF PATIENT CARE PER NURSING PROTOCOL Performed By: #### L501.080 #### [facility] Laboratory Point of Care [address] [place] [address] BEDSIDE GLUCOSE Collected: 12/29/2017 Status: F Source: [place] 6:41 AM [facility] [place] TYPE CODE TESTS RESULT OUT OF RANGE REFERENCE UNITS LAB L501.080 70-110 mg/dL Normal BEDSIDE GLU 93 Result Comment: MANAGEMENT OF PATIENT CARE PER NURSING PROTOCOL Performed By: #### L501.080 #### [facility] Laboratory Point of Care [address] [place] [address] DISCHARGE SUMMARY Observed: 12/28/2017 Status: F Source: [place] 8:44 PM [facility] [place] [facility] Medical Records Department [address] [place] [address] Discharge Summary 12/28/172038 MR#: [id number] Acct: [id number] Name: DI ZAPATA Rep #: [id number] : 1945 72 From: Ari Rainey MD PCP: Aaron Tidwell MD Status: ADM IN Location: [place] [address] Discharge Date and Diagnosis - Problem List [...] @ 10:27 by Huang Alvarado MD) 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) Abnormal screening CT [...] Heart failure with 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 (Chronic) detention current use of anticoagulant (Chronic) Chronic atrial fibrillation (Chronic) [facility] 10/10, 10/2015; MAZE procedure @ [place] 01/12/2017; Status post placement of implantable loop [...] RBC Hgb Hct MCV Consultations 12/12/17 Consult: Onc/Wound/testing analyst Routine Comment: Reason for Consult:: WOUNDS BLE'S [...] Days #42 tab PRN Reason: Breakthrough Pain (>10) Iron Polysaccharide Complex [Ferrex 150] 150 mg [...] Follow Up With: Huang Alvarado MD When: [phone] Please Follow Up With: Epifanio Childers MD When: [phone] Please Follow Up With: Aaron Tidwell MD When: [phone] Please Follow Up With: Shiloh @ [facility] When: [phone] Please Follow Up With: [facility] When: [phone] Disposition: Home with Home Health Minutes spent [...] HEALTH PROGRESS Observed: 12/28/2017 Status: F Source: [place] NOTE 8:44 PM [facility] [place] [facility] Medical Records Department [address] [place] [address] Home Health Progress Note [id number] Encounter Encounter Date: 12/28/172043 MR#: [id number] Acct: [id number] Name: DI ZAPATA Rep #: [id number] : 1945 72 From: Ari Rainey MD PCP: Aaron Tidwell MD Status: ADM IN Location: [place] [address] Home Health Note - Plan Overview of [...] @ 10:27 by Huang Alvarado MD) Other group home (current) drug therapy (Chronic) Abnormal screening CT [...] Heart 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 with 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 (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) 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) Chronic atrial [...] (Chronic) - Requirements and Reasons Disciplines Needed/Ordered: Fpc Reason for Disciplines: Disease Specific Monitoring/education, Medication [...] 12/28/2017 Status: F Source: [place] 8:39 PM [facility] [place] [facility] Medical Records Department [address] [place] [address] Instructions for Home/Discharge Instructions 12/28/172036 MR#: [id number] Acct: [id number] Name: DI ZAPATA Rep #: [id number] : 1945 72 From: Ari Rainey MD [...] Follow Up With: Huang Alvarado MD When: [phone] Please Follow Up With: Epifanio Childers MD When: [phone] Please Follow Up With: Aaron Tidwell MD When: [phone] Please Follow Up With: Shiloh @ [facility] When: [phone] Please Follow Up With: [facility] When: [phone] Proposed Discharge Date: 12/31/17 12/28/172038 <Electronically signed by Ari Rainey MD> Date Ari Rainey MD CC: Aaron Tidwell MD BEDSIDE GLUCOSE Collected: 12/28/2017 Status: F Source: [place] 6:41 AM [facility] [place] TYPE CODE TESTS RESULT OUT OF RANGE REFERENCE UNITS LAB L501.080 70-110 mg/dL Normal BEDSIDE GLU 73 Result Comment: MANAGEMENT OF PATIENT CARE PER NURSING PROTOCOL Performed By: #### L501.080 #### [facility] Laboratory Point of Care [address] [place], [place] [address] BEDSIDE GLUCOSE Collected: 12/27/2017 Status: F Source: [place] 11:40 AM [facility] [place] TYPE CODE TESTS RESULT OUT OF REFERENCE UNITS RANGE LAB L501.080 70-110 mg/dL High BEDSIDE GLU 126 Result Comment: MANAGEMENT OF PATIENT CARE PER NURSING PROTOCOL Performed By: #### L501.080 #### [facility] Laboratory Point of Care [address] [place] [address] BEDSIDE GLUCOSE Collected: 12/27/2017 Status: F Source: [place] 6:21 AM [facility] TYPE CODE TESTS RESULT OUT OF RANGE REFERENCE UNITS LAB L501.080 70-110 mg/dL Normal BEDSIDE GLU 78 Result Comment: MANAGEMENT OF PATIENT CARE PER NURSING PROTOCOL Performed By: #### L501.080 #### [facility] Point of Care [address] [place] [address] BASIC METABOLIC Collected: 12/27/2017 Status: F Source: [place] PROFILE (BMP) 5:10 AM [facility] [place] TYPE CODE TESTS RESULT OUT OF [...] GAP 6 Performed By: #### L500.2500 #### [facility] [address] [place], [address] CBC W/DIFF, AUTOMATED Collected: 12/27/2017 Status: F Source: [place] 5:10 AM [facility] [place] TYPE CODE TESTS RESULT OUT OF [...] Normal 1+ Performed By: #### L100.0100 #### [facility] [address] [place], [address] SURGERY VISIT REPORT Observed: 12/26/2017 Status: F Source: [place] 10:29 AM [facility] [place] [facility] [address] [place] [address] OFFICE VISIT Date of Service: 12/26/17 MR#: [id number] Acct: [id number] Name: DI ZAPATA Rep #: [id number] : 1945 Provider: Huang Alvarado MD Age/Sex: 72/F Location: [facility] Status: Signed Intake Vital Signs12/26/17 Height 5 ft 3 in 12/26/17 Weight: 172 lb Intake Visit Reasons: F/U GI BLEED/[facility] Chief Complaint: GI Bleed Upper Lining Cementer Required: No Is patient in pain?: No [...] hypertension, secondary (Chronic) 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 She was admitted at that [...] her to continue to work hard at [employer] and then at the three-month deepthi to side if endoscopies pose a significant risk to her before we do them. Coding Level of Care Code Off vis,est,level 3 Diagnoses Lower GI bleed K92.2 12/26/17 1029 <Electronically signed by Huang Alvarado MD> Date Huang Alvarado MD Cosigner Signature: Date (if applicable) CC: Epifanio Childers MD; Aaron Tidwell MD BEDSIDE GLUCOSE Collected: 12/26/2017 Status: F Source: [place] 6:20 AM [facility] [place] TYPE CODE TESTS RESULT OUT OF RANGE REFERENCE UNITS LAB L501.080 70-110 mg/dL Normal BEDSIDE GLU 90 Result Comment: MANAGEMENT OF PATIENT CARE PER NURSING PROTOCOL Performed By: #### L501.080 #### [place] [facility] Laboratory Point of Care [address] [place] [address] 12 LEAD ELECTROCARDIOGRAM Observed: 12/25/2017 Status: F Source: [place] 2:08 PM [facility] [place] [facility] Cardiovascular Services [address] [place] [address] 12 Lead EKG 12/11/17 0539 MR#: [id number] Acct: [id number] Name: DI ZAPATA Rep #: [id number] : 1945 72 From: Epifanio Childers MD Attending Dr: Christina Glover MD Status: DIS IN Ordering Dr: Criss Valdez Date: 12/11/17 Location: [facility] Sex: F C Admitted: 12/07/17 Test Reason [...] UNCONFIRMED Confirmed by EPIFANIO CHILDERS MD ([id number]), city editor CARLENE NELSON ([id number]) on 12/25/2017 2:07:44 PM Referred By: Meche Delvalle Confirmed By:EPIFANIO CHILDERS MD 12/25/17 1407 Date Epifanio Childers MD CC: Christina Glover MD; Criss Valdez; Aaron Tidwell MD Signed BEDSIDE GLUCOSE Collected: 12/25/2017 Status: F Source: [place] 6:35 AM [facility] [place] TYPE CODE TESTS RESULT OUT OF RANGE REFERENCE UNITS LAB L501.080 70-110 mg/dL Normal BEDSIDE GLU 97 Result Comment: MANAGEMENT OF PATIENT CARE PER NURSING PROTOCOL Performed By: #### L501.080 #### [facility] Laboratory Point of Care [address] [place] [address] BEDSIDE GLUCOSE Collected: 12/24/2017 Status: F Source: [place] 7:00 AM [facility] [place] TYPE CODE TESTS RESULT OUT OF RANGE REFERENCE UNITS LAB L501.080 70-110 mg/dL Normal BEDSIDE GLU 100 Result Comment: MANAGEMENT OF PATIENT CARE PER NURSING PROTOCOL Performed By: #### L501.080 #### [facility] Laboratory Point of Care [address] [place] [address] BEDSIDE GLUCOSE Collected: 12/23/2017 Status: F Source: [place] 6:24 AM [facility] [place] TYPE CODE TESTS RESULT OUT OF RANGE REFERENCE UNITS LAB L501.080 70-110 mg/dL Normal BEDSIDE GLU 102 Result Comment: MANAGEMENT OF PATIENT CARE PER NURSING PROTOCOL Performed By: #### L501.080 #### [facility] Point of Care [address] [place], [place] [address] BEDSIDE GLUCOSE Collected: 12/22/2017 Status: F Source: [place] 6:38 AM [facility] [place] TYPE CODE TESTS RESULT OUT OF RANGE REFERENCE UNITS LAB L501.080 70-110 mg/dL Normal BEDSIDE GLU 105 Result Comment: MANAGEMENT OF PATIENT CARE PER NURSING PROTOCOL Performed By: #### L501.080 #### [facility] Point of Care [address] [place], [place] [address] BEDSIDE GLUCOSE Collected: 12/21/2017 Status: F Source: [place] 6:30 AM [facility] [place] TYPE CODE TESTS RESULT OUT OF RANGE REFERENCE UNITS LAB L501.080 70-110 mg/dL Normal BEDSIDE GLU 99 Result Comment: MANAGEMENT OF PATIENT CARE PER NURSING PROTOCOL Performed By: #### L501.080 #### [facility] Point of Care [address] [place] [address] BEDSIDE GLUCOSE Collected: 12/20/2017 Status: F Source: [place] 8:48 PM [facility] [place] TYPE CODE TESTS RESULT OUT OF REFERENCE UNITS RANGE LAB L501.080 70-110 mg/dL High BEDSIDE GLU 182 Result Comment: MANAGEMENT OF PATIENT CARE PER NURSING PROTOCOL Performed By: #### L501.080 #### [facility] Point of Care [address] [place] [address] BEDSIDE GLUCOSE Collected: 12/20/2017 Status: F Source: [place] 4:58 PM [facility] [place] TYPE CODE TESTS RESULT OUT OF REFERENCE UNITS RANGE LAB L501.080 70-110 mg/dL High BEDSIDE GLU 144 Result Comment: MANAGEMENT OF PATIENT CARE PER NURSING PROTOCOL Performed By: #### L501.080 #### [facility] Point of Care [address] [place] [address] BEDSIDE GLUCOSE Collected: 12/20/2017 Status: F Source: [place] 11:30 AM [facility] [place] TYPE CODE TESTS RESULT OUT OF REFERENCE UNITS RANGE LAB L501.080 70-110 mg/dL High BEDSIDE GLU 128 Result Comment: MANAGEMENT OF PATIENT CARE PER NURSING PROTOCOL Performed By: #### L501.080 #### [facility] Point of Care [address] [place] [address] BEDSIDE GLUCOSE Collected: 12/20/2017 Status: F Source: [place] 6:34 AM [facility] [place] TYPE CODE TESTS RESULT OUT OF RANGE REFERENCE UNITS LAB L501.080 70-110 mg/dL Normal BEDSIDE GLU 80 Result Comment: MANAGEMENT OF PATIENT CARE PER NURSING PROTOCOL Performed By: #### L501.080 #### [facility] Point of Care [address] [place], [place] [address] BEDSIDE GLUCOSE Collected: 12/19/2017 Status: F Source: [place] 9:05 PM [facility] [place] TYPE CODE TESTS RESULT OUT OF REFERENCE UNITS RANGE LAB L501.080 70-110 mg/dL High BEDSIDE GLU 148 Result Comment: Dr Moe Followed MANAGEMENT OF PATIENT CARE PER NURSING PROTOCOL Performed By: #### L501.080 #### [facility] Point of Care [address] [place] [address] CARDIOLOGY VISIT Observed: 12/19/2017 Status: F Source: [place] REPORT 5:02 PM [facility] [place] [facility] [address] [place] [address] OFFICE VISIT Date of Service: 12/19/17 MR#: [id number] Acct: [id number] Name: DI ZAPATA Rep #: [id number] : 1945 Provider: Gosia Lawson Age/Sex: 72/F Location[facility] Status: Signed HPI HPI Details: DI [...] in TCU - they made the appt Upper Lining Cementer Required: No Accompanied by: None Is patient [...] hypertension, secondary (Chronic) Dyspnea on exertion (Acute) detention current use of anticoagulant (Chronic) Chronic atrial [...] Follow Up 12/19/17 (Keep as is with CIVIL TRANSPORTATION ENGINEER) Coding Level of Care Code Off vis,est,level [...] unspecified 12/19/17 1157 <Electronically signed by Gosia Lawson PA> Date Gosia BEGUM 12/19/17 1702<Electronically signed by Epifanio Childers MD> Cosigner Signature: Date (if applicable) Epifanio Childers MD CC: Aaron Tidwell MD BEDSIDE GLUCOSE Collected: 12/19/2017 Status: F Source: [place] 4:48 PM [facility] [place] TYPE CODE TESTS RESULT OUT OF REFERENCE UNITS RANGE LAB L501.080 70-110 mg/dL High BEDSIDE GLU 163 Result Comment: MANAGEMENT OF PATIENT CARE PER NURSING PROTOCOL Performed By: #### L501.080 #### [facility] [facility] Laboratory Point of Care [address] [place], [place] [address] BEDSIDE GLUCOSE Collected: 12/19/2017 Status: F Source: [place] 11:11 AM [facility] [place] TYPE CODE TESTS RESULT OUT OF REFERENCE UNITS RANGE LAB L501.080 70-110 mg/dL High BEDSIDE GLU 141 Result Comment: MANAGEMENT OF PATIENT CARE PER NURSING PROTOCOL Performed By: #### L501.080 #### [facility] Point of Care [address] [place] [address] BEDSIDE GLUCOSE Collected: 12/19/2017 Status: F Source: [place] 6:21 AM [facility] TYPE CODE TESTS RESULT OUT OF RANGE REFERENCE UNITS LAB L501.080 70-110 mg/dL Normal BEDSIDE GLU 92 Result Comment: MANAGEMENT OF PATIENT CARE PER NURSING PROTOCOL Performed By: #### L501.080 #### [facility] Point of Care [address] [place] [address] BEDSIDE GLUCOSE Collected: 12/18/2017 Status: F Source: [place] 8:40 PM [facility] TYPE CODE TESTS RESULT OUT OF REFERENCE UNITS RANGE LAB L501.080 70-110 mg/dL High BEDSIDE GLU 187 Result Comment: Dr Moe Followed MANAGEMENT OF PATIENT CARE PER NURSING PROTOCOL Performed By: #### L501.080 #### [facility] Point of Care [address] [place] [address] BEDSIDE GLUCOSE Collected: 12/18/2017 Status: F Source: [place] 4:50 PM [facility] [place] TYPE CODE TESTS RESULT OUT OF REFERENCE UNITS RANGE LAB L501.080 70-110 mg/dL High BEDSIDE GLU 183 Result Comment: MANAGEMENT OF PATIENT CARE PER NURSING PROTOCOL Performed By: #### L501.080 #### [facility] Point of Care [address] [place] [address] BEDSIDE GLUCOSE Collected: 12/18/2017 Status: F Source: [place] 10:53 AM [facility] [place] TYPE CODE TESTS RESULT OUT OF RANGE REFERENCE UNITS LAB L501.080 70-110 mg/dL Normal BEDSIDE GLU 107 Result Comment: MANAGEMENT OF PATIENT CARE PER NURSING PROTOCOL Performed By: #### L501.080 #### [facility] Point of Care [address] [place] [address] ABDOMEN SINGLE VIEW Observed: 12/18/2017 Status: F Source: [place] 8:22 AM [facility] [place] [facility] Imaging Services [address] [place] [address] Abdomen Single View MR#: [id number] Acct: [id number] Name: DI ZAPATA Rep #: [id number] : 1945 F 72 From: Fidel Cortez DO PCP: Aaron Tidwell MD Status: ADM IN Study: Abdomen Single View Date of Exam: 12/18/17 Exam# [id number] Ordering Dr: Ari Rainey MD STUDY: X-RAY [...] CC: Ari Rainey MD; Aaron Tidwell MD Lead Web Application Developer: Signed BEDSIDE GLUCOSE Collected: 12/18/2017 Status: F Source: [place] 6:19 AM [facility] [place] TYPE CODE TESTS RESULT OUT OF RANGE REFERENCE UNITS LAB L501.080 70-110 mg/dL Normal BEDSIDE GLU 95 Result Comment: MANAGEMENT OF PATIENT CARE PER NURSING PROTOCOL Performed By: #### L501.080 #### [facility] Point of Care [address] [place], [place] [address] BEDSIDE GLUCOSE Collected: 12/17/2017 Status: F Source: [place] 8:46 PM [facility] [place] TYPE CODE TESTS RESULT OUT OF REFERENCE UNITS RANGE LAB L501.080 70-110 mg/dL High BEDSIDE GLU 150 Result Comment: Dr Orders Followed MANAGEMENT OF PATIENT CARE PER NURSING PROTOCOL Performed By: #### L501.080 #### [facility] Point of Care [address] [place] [address] BEDSIDE GLUCOSE Collected: 12/17/2017 Status: F Source: [place] 4:58 PM [facility] [place] TYPE CODE TESTS RESULT OUT OF REFERENCE UNITS RANGE LAB L501.080 70-110 mg/dL High BEDSIDE GLU 155 Result Comment: Orders Followed MANAGEMENT OF PATIENT CARE PER NURSING PROTOCOL Performed By: #### L501.080 #### [facility] Point of Care [address] [place] [address] BEDSIDE GLUCOSE Collected: 12/17/2017 Status: F Source: [place] 11:10 AM [facility] [place] TYPE CODE TESTS RESULT OUT OF RANGE REFERENCE UNITS LAB L501.080 70-110 mg/dL Normal BEDSIDE GLU 101 Result Comment: MANAGEMENT OF PATIENT CARE PER NURSING PROTOCOL Performed By: #### L501.080 #### [facility] Point of Care [address] [place] [address] BEDSIDE GLUCOSE Collected: 12/17/2017 Status: F Source: [place] 7:01 AM [facility] [place] TYPE CODE TESTS RESULT OUT OF RANGE REFERENCE UNITS LAB L501.080 70-110 mg/dL Normal BEDSIDE GLU 85 Result Comment: MANAGEMENT OF PATIENT CARE PER NURSING PROTOCOL Performed By: #### L501.080 #### [facility] Point of Care [address] [place] [address] BEDSIDE GLUCOSE Collected: 12/16/2017 Status: F Source: [place] 9:04 PM [facility] [place] TYPE CODE TESTS RESULT OUT OF REFERENCE UNITS RANGE LAB L501.080 70-110 mg/dL High BEDSIDE GLU 199 Result Comment: Orders Followed MANAGEMENT OF PATIENT CARE PER NURSING PROTOCOL Performed By: #### L501.080 #### [facility] Point of Care [address] [place] [address] BEDSIDE GLUCOSE Collected: 12/16/2017 Status: F Source: [place] 4:45 PM [facility] [place] TYPE CODE TESTS RESULT OUT OF REFERENCE UNITS RANGE LAB L501.080 70-110 mg/dL High BEDSIDE GLU 197 Result Comment: Dr Moe Followed MANAGEMENT OF PATIENT CARE PER NURSING PROTOCOL Performed By: #### L501.080 #### [facility] Point of Care [address] [place] [address] BEDSIDE GLUCOSE Collected: 12/16/2017 Status: F Source: [place] 11:08 AM [facility] [place] TYPE CODE TESTS RESULT OUT OF REFERENCE UNITS RANGE LAB L501.080 70-110 mg/dL High BEDSIDE GLU 117 Result Comment: MANAGEMENT OF PATIENT CARE PER NURSING PROTOCOL Performed By: #### L501.080 #### [facility] Point of Care [address] [place] [address] BEDSIDE GLUCOSE Collected: 12/16/2017 Status: F Source: [place] 6:25 AM [facility] [place] TYPE CODE TESTS RESULT OUT OF RANGE REFERENCE UNITS LAB L501.080 70-110 mg/dL Normal BEDSIDE GLU 82 Result Comment: MANAGEMENT OF PATIENT CARE PER NURSING PROTOCOL Performed By: #### L501.080 #### [facility] Point of Care [address] [place] [address] BEDSIDE GLUCOSE Collected: 12/15/2017 Status: F Source: [place] 9:20 PM [facility] [place] TYPE CODE TESTS RESULT OUT OF REFERENCE UNITS RANGE LAB L501.080 70-110 mg/dL High BEDSIDE GLU 174 Result Comment: MANAGEMENT OF PATIENT CARE PER NURSING PROTOCOL Performed By: #### L501.080 #### [facility] Point of Care [address] [place] [address] BEDSIDE GLUCOSE Collected: 12/15/2017 Status: F Source: [place] 4:45 PM [facility] [place] TYPE CODE TESTS RESULT OUT OF REFERENCE UNITS RANGE LAB L501.080 70-110 mg/dL High BEDSIDE GLU 198 Result Comment: MANAGEMENT OF PATIENT CARE PER NURSING PROTOCOL Performed By: #### L501.080 #### [facility] Point of Care [address] [place] [address] BEDSIDE GLUCOSE Collected: 12/15/2017 Status: F Source: [place] 11:20 AM [facility] [place] TYPE CODE TESTS RESULT OUT OF REFERENCE UNITS RANGE LAB L501.080 70-110 mg/dL High BEDSIDE GLU 141 Result Comment: MANAGEMENT OF PATIENT CARE PER NURSING PROTOCOL Performed By: #### L501.080 #### [facility] Point of Care [address] [place] [address] BEDSIDE GLUCOSE Collected: 12/15/2017 Status: F Source: [place] 6:19 AM [facility] [place] TYPE CODE TESTS RESULT OUT OF RANGE REFERENCE UNITS LAB L501.080 70-110 mg/dL Normal BEDSIDE GLU 90 Result Comment: MANAGEMENT OF PATIENT CARE PER NURSING PROTOCOL Performed By: #### L501.080 #### [facility] Point of Care [address] [place] [address] BEDSIDE GLUCOSE Collected: 12/14/2017 Status: F Source: [place] 8:38 PM [facility] [place] TYPE CODE TESTS RESULT OUT OF REFERENCE UNITS RANGE LAB L501.080 70-110 mg/dL High BEDSIDE GLU 162 Result Comment: MANAGEMENT OF PATIENT CARE PER NURSING PROTOCOL Performed By: #### L501.080 #### [facility] Point of Care [address] [place] [address] BEDSIDE GLUCOSE Collected: 12/14/2017 Status: F Source: [place] 4:51 PM [facility] [place] TYPE CODE TESTS RESULT OUT OF REFERENCE UNITS RANGE LAB L501.080 70-110 mg/dL High BEDSIDE GLU 168 Result Comment: Dr Orders Followed MANAGEMENT OF PATIENT CARE PER NURSING PROTOCOL Performed By: #### L501.080 #### [facility] Point of Care [address] [place] [address] BEDSIDE GLUCOSE Collected: 12/14/2017 Status: F Source: [place] 11:04 AM [facility] [place] TYPE CODE TESTS RESULT OUT OF REFERENCE UNITS RANGE LAB L501.080 70-110 mg/dL High BEDSIDE GLU 168 Result Comment: MANAGEMENT OF PATIENT CARE PER NURSING PROTOCOL Performed By: #### L501.080 #### [facility] Point of Care [address] [place] [address] DISCHARGE SUMMARY Observed: 12/14/2017 Status: F Source: [place] 10:04 [facility] REPOSITORY [facility] Medical Records Department [address] [place] [address] Discharge Summary 12/12/17 2242 MR#: [id number] Acct: [id number] Name: DI ZAPATA Rep #: [id number] : 1945 72 From: Christina Glover MD PCP: Aaron Tidwell MD Status: DIS IN Y Location: [place] [address] Discharge Date and Diagnosis - Problem List [...] Heart failure with 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 (Chronic) detention current use of anticoagulant (Chronic) Chronic atrial fibrillation (Chronic) DCCV 10/10, 10/2015; MAZE procedure @ [place] 01/12/2017; Status post placement of implantable loop [...] Gold MD at 7:00 EDT Tel Direct: [phone], Service support , Chest X-Ray 12/08/17 10:33 IMPRESSION: The tip of the right PICC line catheter is at the junction of the superior vena cava and right atrium. The lungs are stable. Electronically Signed: Carlos Cai MD at 12:28 EDT Tel [phone], Service support , Consultations 12/07/17 13:06 Consult: Onc/Wound/testing analyst Routine Comment: BLE ulcers- Goes to wound [...] Tidwell MD When: within 2 weeks Disposition: [facility] facility Minutes spent on discharge:: 30 - Lots of time spent in discharge planning and co-ordinating care Patient Condition:: Stable Medical Necessity - Tobacco Use Smoking Status: Never smoker Tobacco Use: Non-smoker Meaningful Use Info Meaningful Use Diagnoses (Choose all that apply): None applicable Code Visit Inpatient E AND M: 19537 Disch Hosp 12/14/17 1004 <Electronically signed by Christina Glover MD> Date Christina Glover MD Cosigner Signature (if applicable): Date CC: Christina Glover MD; Aaron Tidwell MD Signed BEDSIDE GLUCOSE Collected: 12/14/2017 Status: F Source: [place] 6:29 AM [facility] [place] TYPE CODE TESTS RESULT OUT OF RANGE REFERENCE UNITS LAB L501.080 70-110 mg/dL Normal BEDSIDE GLU 95 Result Comment: MANAGEMENT OF PATIENT CARE PER NURSING PROTOCOL Performed By: #### L501.080 #### [facility] [place] [address] BEDSIDE GLUCOSE Collected: 12/13/2017 Status: F Source: [place] 8:16 PM [facility] [place] TYPE CODE TESTS RESULT OUT OF REFERENCE UNITS RANGE LAB L501.080 70-110 mg/dL High BEDSIDE GLU 240 Result Comment: Dr Moe Followed MANAGEMENT OF PATIENT CARE PER NURSING PROTOCOL Performed By: #### L501.080 #### [facility] Point of Care [address] [place] [address] BEDSIDE GLUCOSE Collected: 12/13/2017 Status: F Source: [place] 5:03 PM [facility] [place] TYPE CODE TESTS RESULT OUT OF REFERENCE UNITS RANGE LAB L501.080 70-110 mg/dL High BEDSIDE GLU 172 Result Comment: MANAGEMENT OF PATIENT CARE PER NURSING PROTOCOL Performed By: #### L501.080 #### [facility] Point of Care [address] [place] [address] BEDSIDE GLUCOSE Collected: 12/13/2017 Status: F Source: [place] 11:51 AM [facility] [place] TYPE CODE TESTS RESULT OUT OF REFERENCE UNITS RANGE LAB L501.080 70-110 mg/dL High BEDSIDE GLU 132 Result Comment: MANAGEMENT OF PATIENT CARE PER NURSING PROTOCOL Performed By: #### L501.080 #### [facility] Point of Care [address] [place] [address] BEDSIDE GLUCOSE Collected: 12/13/2017 Status: F Source: [place] 6:12 AM [facility] [place] TYPE CODE TESTS RESULT OUT OF RANGE REFERENCE UNITS LAB L501.080 70-110 mg/dL Normal BEDSIDE GLU 84 Result Comment: MANAGEMENT OF PATIENT CARE PER NURSING PROTOCOL Performed By: #### L501.080 #### [facility] Point of Care [address] [place] [address] BASIC METABOLIC Collected: 12/13/2017 Status: F Source: [place] PROFILE (BMP) 6:10 AM [facility] [place] Order Comment: SPECIMEN OBTAINED FROM LINE [...] GAP 7 Performed By: #### L500.2500 #### [facility] [address] [place], [address] CBC W/DIFF, AUTOMATED Collected: 12/13/2017 Status: F Source: [place] 6:10 AM [facility] [place] Order Comment: SPECIMEN OBTAINED FROM LINE [...] Normal 2+ Performed By: #### L100.0100 #### [facility] [address] [facility] [place], [address] HISTORY AND PHYSICAL Observed: 12/12/2017 Status: F Source: [place] EXAM 9:02 PM [facility] [facility] Medical Records Department [address] [place] [address] History and Physical 12/12/172040 MR#: [id number] Acct: [id number] Name: DI ZAPATA Rep #: [id number] : 1945 72 From: Ari Rainey MD PCP: Aaron Tidwell MD Status: ADM IN Y Location: [place] [address] Problem List (1) Weakness Status: Acute (2) [...] with below past medical history presented to [facility] Emergency Department 12/07/2017 with generalized weakness, frequent falls. 12/07/2017 EKG atrial fibrillation, ST AND T wave abnormality, consider inferolateral ischemia. 2 falls in the past week. [place] weak, going to fall, lowered to the [...] Heart failure with 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 (Chronic) detention current use of anticoagulant (Chronic) Chronic atrial fibrillation (Chronic) [facility] 10/10, 10/2015; MAZE procedure @ [place] 01/12/2017; Status post placement of implantable loop [...] MAZE procedure, loop recorder. 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 * Pneumonia vaccination - Administer [...] Ari Rainey MD> Date Ari Rainey MD [facility] Signature: Date (if applicable) CC: Ari Rainey MD; Aaron Tidwell MD Signed BEDSIDE GLUCOSE Collected: 12/12/2017 Status: F Source: [place] 8:42 PM [facility] [place] TYPE CODE TESTS RESULT OUT OF REFERENCE UNITS RANGE LAB L501.080 70-110 mg/dL High BEDSIDE GLU 236 Result Comment: MANAGEMENT OF PATIENT CARE PER NURSING PROTOCOL Performed By: #### L501.080 #### [facility] Point of Care [address] [facility] [address] BEDSIDE GLUCOSE Collected: 12/12/2017 Status: F Source: [place] 4:54 PM [facility] [place] TYPE CODE TESTS RESULT OUT OF REFERENCE UNITS RANGE LAB L501.080 70-110 mg/dL High BEDSIDE GLU 160 Result Comment: Dr Orders Followed MANAGEMENT OF PATIENT CARE PER NURSING PROTOCOL Performed By: #### L501.080 #### [facility] Point of Care [address] [facility] [address] TRANSFER TO EXTENDED Observed: 12/12/2017 Status: F Source: [place] CARE 1:06 PM [facility] [place] [facility] Medical Records Department [address] [place] [address] Transfer to Extended Care MR#: [id number] Acct: [id number] Name: DI ZAPATA Rep #: [id number] : 1945 72 From: Christina Glover MD PCP: Aaron Tidwell MD Status: ADM IN DI ZAPATA (Patient) (Health Ins. Claim No.) (Day of Discharge to Facility) Certification of patient admission REQUIRED AT TIME OF ADMISSION. I CERTIFY THAT POST-HOSPITAL ECF SERVICES ARE REQUIRED TO BE GIVEN ON AN IN-PATIENT BASIS BECAUSE OF THE ABOVE NAMED PATIENT'S NEED FOR [facility] CARE ON A CONTINUING BASIS FOR THE CONDITION(S) FOR WHICH HE/SHE WAS RECEIVING IN-PATIENT HOSPITAL SERVICES PRIOR TO HIS/HER TRANSFER TO THE [facility]. 12/12/17 1306 <Electronically signed by Christina Glover [...] 12/12/2017 Status: F Source: [place] 11:31 AM [facility] [place] TYPE CODE TESTS RESULT OUT OF REFERENCE UNITS RANGE LAB L501.080 70-110 mg/dL High BEDSIDE GLU 181 Result Comment: MANAGEMENT OF PATIENT CARE PER NURSING PROTOCOL Performed By: #### L501.080 #### [facility] Point of Care [address] [place], [place] [address] HH, HEMOGLOBIN AND Collected: 12/12/2017 Status: F Source: [place] HEMATOCRIT 10:55 AM [facility] [place] TYPE CODE TESTS RESULT OUT OF RANGE REFERENCE UNITS LAB L100.1300 12.0-15.0 g/dl Low HGB 9.6 LAB L100.1400 37-47 % Low HCT 29.9 Performed By: #### L100.0600 #### [facility] [address] [place], [address] DISCHARGE INSTRUCTION Observed: 12/12/2017 Status: F Source: [place] 10:39 AM [facility] [place] [facility] Medical Records Department [address] [place] [address] Instructions for Home/Discharge Instructions 12/12/17 1026 MR#: [id number] Acct: [id number] Name: DI ZAPATA Rep #: [id number] : 1945 72 From: Christina Glover MD [...] well as occupational therapy at home. Denies jwygqbnmzz-ooxe-msd wounds. He will need to follow-up with [...] 12/12/2017 Status: F Source: [place] 6:55 AM [facility] [place] TYPE CODE TESTS RESULT OUT OF RANGE REFERENCE UNITS LAB L501.080 70-110 mg/dL Normal BEDSIDE GLU 92 Result Comment: MANAGEMENT OF PATIENT CARE PER NURSING PROTOCOL Performed By: #### L501.080 #### [facility] Point of Care [address] [place], [place] [address] BASIC METABOLIC Collected: 12/12/2017 Status: F Source: [place] PROFILE (BMP) 5:35 AM [facility] Order Comment: SPECIMEN OBTAINED FROM LINE [...] GAP 6 Performed By: #### L500.2500 #### [facility] [place], [address] CBC W/DIFF, AUTOMATED Collected: 12/12/2017 Status: F Source: [place] 5:35 AM [facility] Order Comment: SPECIMEN OBTAINED FROM LINE [...] Normal 2+ Performed By: #### L100.0100 #### [facility] [address] [place], [address] BEDSIDE GLUCOSE Collected: 12/12/2017 Status: F Source: [place] 3:07 AM [facility] [place] TYPE CODE TESTS RESULT OUT OF REFERENCE UNITS RANGE LAB L501.080 70-110 mg/dL High BEDSIDE GLU 135 Result Comment: MANAGEMENT OF PATIENT CARE PER NURSING PROTOCOL Performed By: #### L501.080 #### [facility] Point of Care [address] [facility] [place] [address] BEDSIDE GLUCOSE Collected: 12/11/2017 Status: F Source: [place] 10:15 PM [facility] [place] TYPE CODE TESTS RESULT OUT OF REFERENCE UNITS RANGE LAB L501.080 70-110 mg/dL High BEDSIDE GLU 210 Result Comment: MANAGEMENT OF PATIENT CARE PER NURSING PROTOCOL Performed By: #### L501.080 #### [facility] Point of Care [address] [facility] [place] [address] BEDSIDE GLUCOSE Collected: 12/11/2017 Status: F Source: [place] 4:42 PM [facility] [place] TYPE CODE TESTS RESULT OUT OF REFERENCE UNITS RANGE LAB L501.080 70-110 mg/dL High BEDSIDE GLU 165 Result Comment: MANAGEMENT OF PATIENT CARE PER NURSING PROTOCOL Performed By: #### L501.080 #### [facility] Point of Care [address] [facility] [place] [address] 12 LEAD ELECTROCARDIOGRAM Observed: 12/11/2017 Status: F Source: [place] 1:49 PM [facility] [place] [facility] Cardiovascular Services [address] [place] [address] 12 Lead EKG 12/07/17 0641 MR#: [id number] Acct: [id number] Name: DI ZAPATA #: [id number] : 1945 72 From: Huang Farr MD Attending Dr: Christina Glover MD Status: ADM IN Ordering Dr: Maddie Tinoco MD Date: 12/07/17 Location: [facility] Sex: F C Admitted: 12/07/17 Test Reason [...] ischemia Abnormal ECG Confirmed by HUANG FARR ([id number]), city editor CARLENE NELSON ([id number]) on 12/11/2017 1:49:21 PM Referred By: Meche Delvalle Confirmed By:HUANG FARR 12/11/17 1349 Date Huang Farr MD CC: Maddie Tinoco MD; Aaron Tidwell MD Signed BEDSIDE GLUCOSE Collected: 12/11/2017 Status: F Source: [place] 11:22 AM [facility] [place] TYPE CODE TESTS RESULT OUT OF RANGE REFERENCE UNITS LAB L501.080 70-110 mg/dL Normal BEDSIDE GLU 104 Result Comment: MANAGEMENT OF PATIENT CARE PER NURSING PROTOCOL Performed By: #### L501.080 #### [facility] Point of Care [address] [place] [address] BEDSIDE GLUCOSE Collected: 12/11/2017 Status: F Source: [place] 6:43 AM [facility] [place] TYPE CODE TESTS RESULT OUT OF RANGE REFERENCE UNITS LAB L501.080 70-110 mg/dL Normal BEDSIDE GLU 104 Result Comment: MANAGEMENT OF PATIENT CARE PER NURSING PROTOCOL Performed By: #### L501.080 #### [facility] Point of Care [address] [place] [address] CBC-COMPLETE BLOOD CNT Collected: 12/11/2017 Status: F Source: [place] NO DIFF 6:00 AM [facility] [facility] Order Comment: SPECIMEN OBTAINED FROM LINE [...] 9.9 Performed By: #### L100.0500, L100.4500 #### [facility] [address] [facility] [place], [place], [address] DIFFERENTIAL COMMENT Collected: 12/11/2017 Status: F Source: [place] 6:00 AM [facility] Order Comment: SPECIMEN OBTAINED FROM LINE DRAW TYPE CODE TESTS RESULT OUT OF RANGE REFERENCE UNITS LAB L100.4500 Normal SMEAR COMMENT SCANNED Result Comment: 3+ ANISOCYTOSIS 1+ HYPOCHROMASIA 2+ TARGET CELLS 2+ MICROCYTOSIS Performed By: #### L100.0500, L100.4500 #### [facility] [address] [facility] [place], [place], [address] TROPONIN-I Collected: 12/11/2017 Status: F Source: [place] 5:30 AM [facility] Order Comment: SPECIMEN OBTAINED FROM LINE DRAW 'TROP' Serial specimen #1, #2, #3, or #4: 3 TYPE CODE TESTS RESULT OUT OF RANGE REFERENCE UNITS LAB L501.4010 <0.06 ng/mL Normal < 0.02 TROPONIN-I Result Comment: TROPONIN-I EXPECTED VALUES <0.05 NEGATIVE 0.06 - 0.59 AT RISK OF [place] > OR = 0.60 SUGGEST [place] Performed By: #### L501.4010 #### [facility] [address] [place], [address] BASIC METABOLIC Collected: 12/11/2017 Status: F Source: [place] PROFILE (BMP) 5:30 AM [facility] [facility] Order Comment: SPECIMEN OBTAINED FROM LINE [...] GAP 8 Performed By: #### L500.2500 #### [facility] [address] [place], [place], [address] BEDSIDE GLUCOSE Collected: 12/11/2017 Status: F Source: [place] 3:16 AM [facility] [place] TYPE CODE TESTS RESULT OUT OF REFERENCE UNITS RANGE LAB L501.080 70-110 mg/dL High BEDSIDE GLU 121 Result Comment: MANAGEMENT OF PATIENT CARE PER NURSING PROTOCOL Performed By: #### L501.080 #### [facility] Point of Care [address] [place], [place] [address] TROPONIN-I Collected: 12/11/2017 Status: F Source: [place] 1:45 AM [facility] Order Comment: 'TROP' Serial specimen #1, #2, #3, or #4: 2 TYPE CODE TESTS RESULT OUT OF RANGE REFERENCE UNITS LAB L501.4010 <0.06 ng/mL Normal < 0.02 TROPONIN-I Result Comment: TROPONIN-I EXPECTED VALUES <0.05 NEGATIVE 0.06 - 0.59 AT RISK OF [place] > OR = 0.60 SUGGEST [place] Performed By: #### L501.4010 #### [facility] [address] [place], [place], [address] TROPONIN-I Collected: 12/10/2017 Status: F Source: [place] 10:10 PM [facility] Order Comment: 'TROP' Serial specimen #1, #2, #3, or #4: 1 TYPE CODE TESTS RESULT OUT OF RANGE REFERENCE UNITS LAB L501.4010 <0.06 ng/mL Normal < 0.02 TROPONIN-I Result Comment: TROPONIN-I EXPECTED VALUES <0.05 NEGATIVE 0.06 - 0.59 AT RISK OF [place] > OR = 0.60 SUGGEST [place] Performed By: #### L501.4010 #### [facility] [address] [place], [place], [address] BEDSIDE GLUCOSE Collected: 12/10/2017 Status: F Source: [place] 9:15 PM [facility] TYPE CODE TESTS RESULT OUT OF REFERENCE UNITS RANGE LAB L501.080 70-110 mg/dL High BEDSIDE GLU 163 Result Comment: Insulin Given MANAGEMENT OF PATIENT CARE PER NURSING PROTOCOL Performed By: #### L501.080 #### [facility] Point of Care [address] [place] [address] BEDSIDE GLUCOSE Collected: 12/10/2017 Status: F Source: [place] 4:33 PM [facility] TYPE CODE TESTS RESULT OUT OF REFERENCE UNITS RANGE LAB L501.080 70-110 mg/dL High BEDSIDE GLU 155 Result Comment: MANAGEMENT OF PATIENT CARE PER NURSING PROTOCOL Performed By: #### L501.080 #### [facility] Point of Care [address] [place] [place] [address] BEDSIDE GLUCOSE Collected: 12/10/2017 Status: F Source: [place] 11:44 AM [facility] TYPE CODE TESTS RESULT OUT OF RANGE REFERENCE UNITS LAB L501.080 70-110 mg/dL Normal BEDSIDE GLU 94 Result Comment: MANAGEMENT OF PATIENT CARE PER NURSING PROTOCOL Performed By: #### L501.080 #### [facility] Point of Care [address] [place] [address] BEDSIDE GLUCOSE Collected: 12/10/2017 Status: F Source: [place] 6:42 AM [facility] TYPE CODE TESTS RESULT OUT OF RANGE REFERENCE UNITS LAB L501.080 70-110 mg/dL Normal BEDSIDE GLU 96 Result Comment: MANAGEMENT OF PATIENT CARE PER NURSING PROTOCOL Performed By: #### L501.080 #### [facility] Point of Care [address] [place] [address] BASIC METABOLIC Collected: 12/10/2017 Status: F Source: [place] PROFILE (BMP) 4:50 AM [facility] Order Comment: SPECIMEN OBTAINED FROM LINE [...] GAP 7 Performed By: #### L500.2500 #### [facility] [address] [place], [place], [address] CBC W/DIFF, AUTOMATED Collected: 12/10/2017 Status: F Source: [place] 4:50 AM [facility] Order Comment: SPECIMEN OBTAINED FROM LINE [...] Normal RARE Performed By: #### L100.0100 #### [facility] [address] [place], [address] BEDSIDE GLUCOSE Collected: 12/10/2017 Status: F Source: [place] 3:47 AM [facility] TYPE CODE TESTS RESULT OUT OF RANGE REFERENCE UNITS LAB L501.080 70-110 mg/dL Normal BEDSIDE GLU 110 Result Comment: MANAGEMENT OF PATIENT CARE PER NURSING PROTOCOL Performed By: #### L501.080 #### [facility] Point of Care [address] [place] [address] BEDSIDE GLUCOSE Collected: 12/09/2017 Status: F Source: [place] 10:08 PM [facility] TYPE CODE TESTS RESULT OUT OF REFERENCE UNITS RANGE LAB L501.080 70-110 mg/dL High BEDSIDE GLU 149 Result Comment: MANAGEMENT OF PATIENT CARE PER NURSING PROTOCOL Performed By: #### L501.080 #### [facility] Point of Care [address] [place] [address] BEDSIDE GLUCOSE Collected: 12/09/2017 Status: F Source: [place] 3:48 PM [facility] TYPE CODE TESTS RESULT OUT OF REFERENCE UNITS RANGE LAB L501.080 70-110 mg/dL High BEDSIDE GLU 175 Result Comment: MANAGEMENT OF PATIENT CARE PER NURSING PROTOCOL Performed By: #### L501.080 #### [facility] Point of Care [address] [place] [address] BEDSIDE GLUCOSE Collected: 12/09/2017 Status: F Source: [place] 10:11 AM [facility] TYPE CODE TESTS RESULT OUT OF RANGE REFERENCE UNITS LAB L501.080 70-110 mg/dL Normal BEDSIDE GLU 90 Result Comment: MANAGEMENT OF PATIENT CARE PER NURSING PROTOCOL Performed By: #### L501.080 #### [facility] Point of Care [address] [place] [address] BEDSIDE GLUCOSE Collected: 12/09/2017 Status: F Source: [place] 6:30 AM [facility] TYPE CODE TESTS RESULT OUT OF REFERENCE UNITS RANGE LAB L501.080 70-110 mg/dL High BEDSIDE GLU 125 Result Comment: MANAGEMENT OF PATIENT CARE PER NURSING PROTOCOL Performed By: #### L501.080 #### [facility] Point of Care [address] [place] [place] [address] CBC W/DIFF, AUTOMATED Collected: 12/09/2017 Status: F Source: [place] 4:00 AM [facility] TYPE CODE TESTS RESULT OUT OF [...] 1+ ANISOCYTOSIS Performed By: #### L100.0100 #### [facility] [address] [facility] [address] [place], [place], [address] BASIC METABOLIC Collected: 12/09/2017 Status: F Source: [place] PROFILE (BMP) 4:00 AM [facility] TYPE CODE TESTS RESULT OUT OF [...] GAP 7 Performed By: #### L500.2500 #### [facility] [address] [place], [address] BEDSIDE GLUCOSE Collected: 12/09/2017 Status: F Source: [place] 3:16 AM [facility] TYPE CODE TESTS RESULT OUT OF REFERENCE UNITS RANGE LAB L501.080 70-110 mg/dL High BEDSIDE GLU 158 Result Comment: MANAGEMENT OF PATIENT CARE PER NURSING PROTOCOL Performed By: #### L501.080 #### [facility] Point of Care [address] [place], [place] [id number] ([address]) BEDSIDE GLUCOSE Collected: 12/08/2017 Status: F Source: [place] 10:01 PM [facility] TYPE CODE TESTS RESULT OUT OF REFERENCE UNITS RANGE LAB L501.080 70-110 mg/dL High BEDSIDE GLU 155 Result Comment: MANAGEMENT OF PATIENT CARE PER NURSING PROTOCOL Performed By: #### L501.080 #### [facility] Point of Care [address] [place] [address] BEDSIDE GLUCOSE Collected: 12/08/2017 Status: F Source: [place] 4:28 PM [facility] TYPE CODE TESTS RESULT OUT OF REFERENCE UNITS RANGE LAB L501.080 70-110 mg/dL High BEDSIDE GLU 154 Result Comment: MANAGEMENT OF PATIENT CARE PER NURSING PROTOCOL Performed By: #### L501.080 #### [facility] Point of Care [address] [place], [place] [address] (114) BEDSIDE GLUCOSE Collected: 12/08/2017 Status: F Source: [place] 1:09 PM [facility] TYPE CODE TESTS RESULT OUT OF RANGE REFERENCE UNITS LAB L501.080 70-110 mg/dL Normal BEDSIDE GLU 107 Result Comment: MANAGEMENT OF PATIENT CARE PER NURSING PROTOCOL Performed By: #### L501.080 #### [facility] Point of Care [address] [place] [address] CXR FOR LINE PLACEMENT Observed: 12/08/2017 Status: F Source: [place] 10:33 AM [facility] Imaging Services [address] [place] [address] CXR for Line Placement MR#: [id number] Acct: [id number] Name: DI ZAPATA Rep #: [id number] : 1945 F 72 From: Carlos Cai MD PCP: Aaron Tidwell MD Status: ADM IN Study: CXR for Line Placement Date of Exam: 12/08/17 Exam# [id number] Ordering Dr: Eliu Mitchell DO STUDY: X-RAY [...] Carlos Cai MD at 12:28 EDT Tel [phone], Service support , CC: Eliu Mitchell D.O.; Aaron Tidwell MD Lead Web Application Developer: Signed PROTHROMBIN TIME W/INR Collected: 12/08/2017 Status: F Source: [place] 10:30 AM [facility] TYPE CODE TESTS RESULT OUT OF RANGE REFERENCE UNITS LAB L300.4150 11.7-14.9 SECONDS High PROTIME 20.0 LAB L300.4200 Normal INR 1.7 Performed By: #### L300.3900 #### [facility] [address] [place], [address] CBC-COMPLETE BLOOD CNT Collected: 12/08/2017 Status: F Source: [place] NO DIFF 9:00 AM [facility] TYPE CODE TESTS RESULT OUT OF [...] 10.1 Performed By: #### L100.0500, L100.4500 #### [facility] [address] [place], [address] DIFFERENTIAL COMMENT Collected: 12/08/2017 Status: F Source: [place] 9:00 AM [facility] TYPE CODE TESTS RESULT OUT OF RANGE REFERENCE UNITS LAB L100.4500 Normal SMEAR COMMENT COMMENT Result Comment: SLIDE SCANNED - 1+ ANISO NOTED. Performed By: #### L100.0500, L100.4500 #### [facility] [address] [place], [address] HISTORY AND PHYSICAL Observed: 12/08/2017 Status: F Source: [place] EXAM 8:36 AM [facility] Medical Records Department [address] [place], [place] [address] [address] History and Physical 12/07/17 0933 MR#: [id number] Acct: [id number] Name: DI ZAPATA Rep #: [id number] : 1945 72 From: Frederic Lopez MD PCP: Aaron Tidwell MD Status: ADM IN Y Location: ICU ICU03-1 Problem List (1) Calcinosis Status: Chronic (2) Edema, lower extremity Status: Chronic (3) Pulmonary hypertension, secondary Status: Chronic (4) History of cardiac radiofrequency ablation (RFA) Status: Chronic Comment: 1st part of MAZE procedure Lt Atrial Ablation 01/12/17 @ [place] (5) Dyspnea on exertion Status: Acute (6) Localized edema Status: Chronic (7) Heart failure with 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 Status: Chronic (8) Cellulitis Status: Resolved (9) detention current use of anticoagulant Status: Chronic (10) Chronic atrial fibrillation Status: Chronic Comment: DCCV 10/10, 10/2015; MAZE procedure @ [place] 01/12/2017; (11) Status post placement of implantable [...] Heart failure with 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 (Chronic) 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 H AND H every [address] Mitchell and surgeon Dr. Alvarado consulted. [...] 83.6 H, Lymph % (Auto) 8.3 L, Hunt % (Auto) 6.9, Eos % (Auto) 0.6, Baso % (Auto) 0.2, Absolute Neuts (auto) 10.5 H, Absolute Lymphs (auto) 1.04, Total Counted Not Reportable, Differential Comment COMMENT Code Visit Inpatient E AND M: [id number] Init Hosp L3 12/08/17 0836 <Electronically signed by Frederic Lopez MD> Date Frederic Lopez MD Cosigner Signature: Date (if applicable) CC: Frederic Lopez MD; Aaron Tidwell MD Signed CONSULTATION Observed: 12/08/2017 Status: F Source: [place] 7:51 AM [facility] [place] [facility] Medical Records Department [address] [place] [address] Consultation 12/08/17 0747 MR#: [id number] Acct: [id number] Name: DI ZAPATA Rep #: [id number] : 1945 72 From: Huang Alvarado MD [...] Heart failure with 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 (Chronic) detention current use of anticoagulant (Chronic) Chronic atrial fibrillation (Chronic) [facility] 10/10, 10/2015; MAZE procedure @ [place] 01/12/2017; Status post placement of implantable loop [...] 12/08/2017 Status: F Source: [place] 6:38 AM [facility] [facility] Medical Records Department [address] [place] [address] [place] [address] Consultation 12/07/17 1114 MR#: [id number] Acct: [id number] Name: DI ZAPATA Rep #: [id number] : 1945 72 From: Eliu Mitchell DO [...] Heart failure with 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 (Chronic) detention current use of anticoagulant (Chronic) Chronic atrial fibrillation (Chronic) [facility] 10/10, 10/2015; MAZE procedure @ [place] 01/12/2017; Status post placement of implantable loop [...] Gold MD at 7:00 EDT Tel Direct: [phone], Service support , Assessment/Plan Active and Suspected [...] continuing BiPAP 09/08 with naps and nightly. [facility] will need to be contacted prior [...] for now. This note was generated with Telik dictation software. It may contain incorrect words, spelling, and punctuation that were not noted in checking the note before signing. Code Visit Inpatient E AND M: 75531 Init Hosp L3 12/08/17 0638 <Electronically signed by Eliu Mitchell DO> Date Eliu Mitchell DO Cosigner Signature (if applicable): Date CC: Huang Alvarado MD; Eliu Mitchell D.O.; Aaron Tidwell MD Signed BEDSIDE GLUCOSE Collected: 12/08/2017 Status: F Source: [place] 6:32 AM [facility] TYPE CODE TESTS RESULT OUT OF RANGE REFERENCE UNITS LAB L501.080 70-110 mg/dL Normal BEDSIDE GLU 82 Result Comment: MANAGEMENT OF PATIENT CARE PER NURSING PROTOCOL Performed By: #### L501.080 #### [facility] Point of Care [address] [place], [place] [address] BASIC METABOLIC Collected: 12/08/2017 Status: F Source: [place] PROFILE (BMP) 5:35 AM [facility] TYPE CODE TESTS RESULT OUT OF [...] 8 GAP Performed By: #### L500.2500 #### [facility] [address] [place], [address] BEDSIDE GLUCOSE Collected: 12/08/2017 Status: F Source: [place] 12:58 AM [facility] TYPE CODE TESTS RESULT OUT OF REFERENCE UNITS RANGE LAB L501.080 70-110 mg/dL High BEDSIDE GLU 112 Result Comment: MANAGEMENT OF PATIENT CARE PER NURSING PROTOCOL Performed By: #### L501.080 #### [facility] Point of Care [address] [place] [address] BEDSIDE GLUCOSE Collected: 12/07/2017 Status: F Source: [place] 11:47 PM [facility] TYPE CODE TESTS RESULT OUT OF REFERENCE UNITS RANGE LAB L501.080 70-110 mg/dL Low BEDSIDE GLU 62 Result Comment: MANAGEMENT OF PATIENT CARE PER NURSING PROTOCOL Performed By: #### L501.080 #### [facility] Point of Care [address] [place] [address] HH, HEMOGLOBIN AND Collected: 12/07/2017 Status: F Source: [place] HEMATOCRIT 6:20 PM [facility] TYPE CODE TESTS RESULT OUT OF RANGE REFERENCE UNITS LAB L100.1300 12.0-15.0 g/dl Low HGB 8.3 LAB L100.1400 37-47 % Low HCT 26.8 Performed By: #### L100.0600 #### [facility] [address] [place], [address] BEDSIDE GLUCOSE Collected: 12/07/2017 Status: F Source: [place] 5:32 PM [facility] TYPE CODE TESTS RESULT OUT OF RANGE REFERENCE UNITS LAB L501.080 70-110 mg/dL Normal BEDSIDE GLU 75 Result Comment: MANAGEMENT OF PATIENT CARE PER NURSING PROTOCOL Performed By: #### L501.080 #### [facility] Point of Care [address] [place] [address] URINALYSIS, COMPLETE Collected: 12/07/2017 Status: F Source: [place] 3:20 PM [facility] Order Comment: How was Urine Obtained? YEAST CAKE CUTTER TO SPECIFY TYPE CODE TESTS RESULT OUT [...] URINE SEEN Performed By: #### L400.0001 #### [facility] [address] [facility] [place], [address] HH, HEMOGLOBIN AND Collected: 12/07/2017 Status: F Source: [place] HEMATOCRIT 1:10 PM [facility] TYPE CODE TESTS RESULT OUT OF RANGE REFERENCE UNITS LAB L100.1300 12.0-15.0 g/dl Low HGB 8.5 LAB L100.1400 37-47 % Low HCT 27.0 Performed By: #### L100.0600 #### [facility] [address] [facility], [address] BEDSIDE GLUCOSE Collected: 12/07/2017 Status: F Source: [place] 12:54 PM [facility] TYPE CODE TESTS RESULT OUT OF RANGE REFERENCE UNITS LAB L501.080 70-110 mg/dL Normal BEDSIDE GLU 96 Result Comment: MANAGEMENT OF PATIENT CARE PER NURSING PROTOCOL Performed By: #### L501.080 #### [facility] Point of Care [address] [place] [address] M R STAPH AUREUS Collected: 12/07/2017 Status: F Source: [place] DNA BY PCR 10:52 AM [facility] TYPE CODE TESTS RESULT OUT OF RANGE REFERENCE UNITS LAB L8200.1100 Negative Normal MRSA Negative RESULT Performed By: #### L8200.1000 #### [facility] [address] [place], [address] EMERGENCY DEPARTMENT Observed: 12/07/2017 Status: F Source: [place] SUMMARY 8:29 AM [facility] Medical Records Department [address] [place] [address] Emergency Department Summary 12/07/17 0651 MR#: [id number] Acct: [id number] Name: DI ZAPATA Rep #: [id number] : 1945 72 From: Maddie Tinoco MD [...] was discussed with Dr. Eliu Mitchell the factory maintenance manager. Dr. Alvarado was contacted since he has seen patient in the past. He will gladly follow and scope patient when appropriate and indicated. Dr. Childers her insurance agency owner was contacted since she will require K [...] on Xarelto This note was generated with Telik dictation software. It may contain incorrect words, [...] your Primary Care Provider. Call [facility] ([phone]) or report to the closest Emergency Room. Call 911 if necessary. 12/07/17 9522 <Electronically signed by Maddie Tinoco MD> Date Maddie Tinoco MD Cosigner Signature (If Indicated): Date CC: Aaron Tidwell MD PROTHROMBIN TIME W/INR Collected: 12/07/2017 Status: F Source: [place] 7:35 AM [facility] Order Comment: CRITICAL VALUE VERIFIED. CALLED TO [facility] 12/07/17 0810 Kellie Echavarria. RESULTS READ BACK BY CHARLY . TYPE CODE TESTS RESULT OUT OF REFERENCE UNITS RANGE LAB L300.4150 11.7-14.9 SECONDS High PROTIME 68.1 LAB L300.4200 High alert INR 8.0 Performed By: #### L300.3900, L300.4310 #### [facility] [address] [place], [place], [address] PARTIAL THROMBOPLAST Collected: 12/07/2017 Status: F Source: [place] TIME 7:35 AM [facility] Order Comment: CRITICAL VALUE VERIFIED. CALLED TO [facility] 12/07/17 0810 Kellie Echavarria. RESULTS READ BACK BY CHARLY . TYPE CODE TESTS RESULT OUT OF REFERENCE UNITS RANGE LAB L300.4310 24.1-36.2 Seconds High alert PTT 91.5 Performed By: #### L300.3900, L300.4310 #### [facility] [address] [place], [place], [address] LACTIC ACID Collected: 12/07/2017 Status: F Source: [place] 7:35 AM [facility] Order Comment: Yes/No query for Sepsis Lactate Rule Y TYPE CODE TESTS RESULT OUT OF RANGE REFERENCE UNITS LAB L503.6005 0.4-2.0 mmol/L Normal LACTIC ACID 1.4 Performed By: #### L503.6005 #### [facility] [address] [place], [place], [address] CBC W/DIFF, AUTOMATED Collected: 12/07/2017 Status: F Source: [place] 7:35 AM [facility] Order Comment: REDRAW. PREVIOUS SPECIMEN REJECTED [...] 1+ HYPOCHROMIA. Performed By: #### L100.0100 #### [facility] [address] [place], [address] TYPE AND SCREEN Collected: 12/07/2017 Status: F Source: [place] 7:35 AM [facility] Order Comment: Reason for Type AND Screen/Red Cells: HEMORRHAGE, GI BLEED TYPE CODE TESTS RESULT OUT OF RANGE REFERENCE UNITS LAB B10.0800 A Normal BLOOD TYPE GEL POSITIVE LAB B100.4000 Normal Antibody NEGATIVE Screen Performed By: #### B101.7450 #### [facility] [address] [place], [address] RC Collected: 12/07/2017 Status: F Source: [place] 7:35 AM [facility] TYPE CODE TESTS RESULT OUT OF REFERENCE UNITS RANGE LAB U100.0000 [id number] TRANSFUSED PRODUCT: T AND S with Crossmatch, Red Cells COUNT: 1 Performed By: #### U100.0000 #### [facility] - refer to report for specific site BASIC METABOLIC Collected: 12/07/2017 Status: F Source: [place] PROFILE (BMP) 7:30 AM [facility] Order Comment: 'TROP' Serial specimen #1, [...] 10 Performed By: #### L500.2500, L501.4010 #### [facility] [address] [place], [address] TROPONIN-I Collected: 12/07/2017 Status: F Source: [place] 7:30 AM [facility] Order Comment: 'TROP' Serial specimen #1, #2, #3, or #4: 1 TYPE CODE TESTS RESULT OUT OF RANGE REFERENCE UNITS LAB L501.4010 <0.06 ng/mL Normal < 0.02 TROPONIN-I Result Comment: TROPONIN-I EXPECTED VALUES <0.05 NEGATIVE 0.06 - 0.59 AT RISK OF [place] > OR = 0.60 SUGGEST [place] Performed By: #### L500.2500, L501.4010 #### [facility] [address] [place], [address] Observed: 12/07/2017 Status: F Source: [place] STOOL OCCULT BLOOD 6:50 AM [facility] [facility] iF Normal Reference Range = Negative Occult Blood Positive ORGANISM 1: OCCULT BLOOD POSITIVE Performed By: #### M100.7900 #### [facility] [place], [address] CHEST 1 VIEW Observed: 12/07/2017 Status: F Source: [place] (PORTABLE) 6:29 AM [facility] Imaging Services [address] [place] [address] Chest 1 View (Portable) MR#: [id number] Acct: [id number] Name: DI ZAPATA Rep #: [id number] : 1945 F 72 From: Christen Gold MD PCP: Aaron Tidwell MD Status: REG ER Study: Chest 1 View (Portable) Date of Exam: 12/07/17 Exam# [id number] Ordering Dr: Maddie Tinoco MD STUDY: X-RAY [...] Gold MD at 7:00 EDT Tel Direct: [phone], Service support , CC: Maddie Tinoco MD; Aaron Tidwell MD Lead Web Application Developer: Signed 12 LEAD ELECTROCARDIOGRAM Observed: 12/04/2017 Status: F Source: [place] 2:53 PM [facility] Cardiovascular Services [address] [place] [address] 12 Lead EKG 12/01/17 0925 MR#: [id number] Acct: [id number] Name: DI ZAPATA Rep #: [id number] : 1945 72 From: Epifanio Childers MD [...] ECG Confirmed by EPIFANIO CHILDERS MD ([id number]), city editor CARLENE NELSON ([id number]) on 12/04/2017 2:53:15 PM Referred By: VAISHNAVI Confirmed By:EPIFANIO CHILDERS MD 12/04/17 1453 Date Epifanio Childers MD CC: Meche Ramos MD; Aaron Tidwell MD Signed EMERGENCY DEPARTMENT Observed: 12/04/2017 Status: F Source: [place] SUMMARY 7:22 AM [facility] [place] Medical Records Department [address] [place] [address] Emergency Department Summary 12/04/17 0602 MR#: [id number] Acct: [id number] Name: DI ZAPATA Rep #: [id number] : 1945 72 From: Major Meyers MD [...] on Xarelto This note was generated with Telik dictation software. It may contain incorrect words, [...] your Primary Care Provider. Call [facility] ([phone]) or report to the closest Emergency Room. Call 911 if necessary. 12/04/17721 <Electronically signed by Major Meyers MD> Date Major Meyers MD Cosigner Signature (If Indicated): Date CC: Aaron Tidwell MD DISCHARGE INSTRUCTION Observed: 12/04/2017 Status: F Source: [place] 7:22 AM [facility] Medical Records Department [address] [place] [address] Discharge Instruction 12/04/17701 MR#: [id number] Acct: [id number] Name: DI ZAPATA Rep #: [id number] : 1945 72 From: Major Meyers MD PCP: Aaron Tidwell MD Status: [facility] ER ED Disposition - Plan for ED Patient: Disposition: Home or Assisted Living Chief Complaint: Fall Instructions: ED Contusion Back Referrals: Aaorn Tidwell MD [Primary Care Provider] - As [...] problems, contact your Primary Care Provider. Call [facility] ([phone]) or report to the closest Emergency Room. Call 911 if necessary. 12/04/17 07 <Electronically signed by Major Meyers MD> Date Major Meyers MD Cosigner Signature (If Indicated): Date CC: Aaron Tidwell MD LUMBAR SPINE 2 OR 3 Observed: 12/04/2017 Status: F Source: [facility] 6:02 AM [facility] Imaging Services [address] [place] [address] Lumbar Spine 2 or 3 Views MR#: [id number] Acct: [id number] Name: ID ZAPATA Rep #: [id number] : 1945 F 72 From: Curtis Harris MD PCP: Aaron Tidwell MD Status: REG ER Study: Lumbar Spine 2 or 3 Views Date of Exam: 12/04/17 Exam# [id number] Ordering Dr: Major Meyers MD STUDY: X-RAY [...] CC: Major Meyers MD; Aaron Tidwell MD Lead Web Application Developer: Signed CHEST PA AND LATERAL Observed: 12/04/2017 Status: F Source: [place] 6:02 AM [facility] Imaging Services [address] [place] [address] Chest PA and Lateral MR#: [id number] Acct: [id number] Name: DI ZAPATA Rep #: [id number] : 1945 F 72 From: Curtis Harris MD PCP: Aaron Tidwell MD Status: REG ER Study: Chest PA and Lateral Date of Exam: 12/04/17 Exam# [id number] Ordering Dr: Major Meyers MD STUDY: X-RAY [...] CC: Major Meyers MD; Aaron Tidwell MD Lead Web Application Developer: Signed EMERGENCY DEPARTMENT Observed: 12/01/2017 Status: F Source: [place] SUMMARY 5:39 PM [facility] Medical Records Department [address] [place] [address] Emergency Department Summary 12/01/17 0919 MR#: [id number] Acct: [id number] Name: DI ZAPATA Rep #: [id number] : 1945 72 From: Meche Ramos MD [...] and aVL. This was discussed with cardiology aviation mechanic who did not think this new inversion [...] Mild dehydration This note was generated with Easiest Credit Card To Get Approved Foration software. It may contain incorrect words, spelling, [...] problems, contact your Primary Care Provider. Call [facility] ([phone]) or report to the closest Emergency Room. Call 911 if necessary. 12/01/17 0652 <Electronically signed by Meche Ramos MD> Date Meche Ramos MD Cosigner Signature (If Indicated): Date CC: Aaron Tidwell MD DISCHARGE INSTRUCTION Observed: 12/01/2017 Status: F Source: [place] 4:50 PM [facility] Medical Records Department [address] [place] [address] Discharge Instruction 12/01/17 1236 MR#: [id number] Acct: [id number] Name: DI ZAPATA Rep #: [id number] : 1945 72 From: Meche Ramos MD [...] problems, contact your Primary Care Provider. Call [facility] ([phone]) or report to the closest Emergency Room. Call 911 if necessary. 12/01/17 1650 <Electronically signed by Meche Ramos MD> Date Meche Ramos MD Cosigner Signature (If Indicated): Date CC: Aaron Tidwell MD Observed: 12/01/2017 Status: F Source: [place] CULTURE, URINE 2:10 PM [facility] Urine Culture ORGANISM 1: Klebsiella pneumoniae sp pneum [place] Count >100,000 Klebsiella pneumoniae sp pneum: REACTION [...] <=20 S (NF) indicates non-formulary drug at [facility]. Approval by Infectious Disease Specialist required before non-formulary drugs may be ordered and/or dispensed. Performed By: #### M100.0650 #### [facility] [address] [place], [place] [address], [address] URINALYSIS, COMPLETE Collected: 12/01/2017 Status: F Source: [place] 11:00 AM [facility] Order Comment: How was Urine Obtained? [...] URINE RARE Performed By: #### L400.0001 #### [facility] [address] [place], [address] CBC W/DIFF, AUTOMATED Collected: 12/01/2017 Status: F Source: [place] 9:40 AM [facility] TYPE CODE TESTS RESULT OUT OF [...] Normal RARE Performed By: #### L100.0100 #### [facility] [address] [place], [address] COMPREHENSIVE METABOLIC Collected: 12/01/2017 Status: F Source: [facility] 9:40 AM [facility] Order Comment: 'TROP' Serial specimen #1, [...] 7 Performed By: #### L500.4050, L501.4010 #### [facility] [address] [place], [place], [address] TROPONIN-I Collected: 12/01/2017 Status: F Source: [place] 9:40 AM [facility] Order Comment: 'TROP' Serial specimen #1, #2, #3, or #4: 1 TYPE CODE TESTS RESULT OUT OF RANGE REFERENCE UNITS LAB L501.4010 <0.06 ng/mL Normal < 0.02 TROPONIN-I Result Comment: TROPONIN-I EXPECTED VALUES <0.05 NEGATIVE 0.06 - 0.59 AT RISK OF [place] > OR = 0.60 SUGGEST [place] Performed By: #### L500.4050, L501.4010 #### [facility] [address] [place], [place], [address] PROTHROMBIN TIME W/INR Collected: 12/01/2017 Status: F Source: [place] 9:40 AM [facility] TYPE CODE TESTS RESULT OUT OF RANGE REFERENCE UNITS LAB L300.4150 11.7-14.9 SECONDS High PROTIME 27.2 LAB L300.4200 Normal INR 2.5 Performed By: #### L300.3900, L300.4310 #### [facility] [address] [place], [address] PARTIAL THROMBOPLAST Collected: 12/01/2017 Status: F Source: [place] TIME 9:40 AM [facility] TYPE CODE TESTS RESULT OUT OF REFERENCE UNITS RANGE LAB L300.4310 24.1-36.2 Seconds High PTT 63.2 Performed By: #### L300.3900, L300.4310 #### [facility] [address] [place], [address] CHEST 1 VIEW Observed: 12/01/2017 Status: F Source: [place] (PORTABLE) 9:19 AM [facility] Imaging Services [address] [facility] [address] Chest 1 View (Portable) MR#: [id number] Acct: [id number] Name: DI ZAPATA Rep #: [id number] : 1945 F 72 From: Carlos Cai MD PCP: Aaron Tidwell MD Status: REG ER Study: Chest 1 View (Portable) Date of Exam: 12/01/17 Exam# [id number] Ordering Dr: Meche Ramos MD STUDY: X-RAY [...] Carlos Cai MD at 10:06 EST Tel [phone], Service support , CC: Meche Ramos MD; Aaron Tidwell MD Lead Web Application Developer: Signed BRAIN/HEAD WITHOUT Observed: 12/01/2017 Status: F Source: [place] CONTRAST 9:19 AM [facility] Imaging Services [address] [place] [address] Brain/Head without Contrast MR#: [id number] Acct: [id number] Name: DI ZAPATA Rep #: [id number] : 1945 F 72 From: Carlos Cai MD PCP: Aaron Tidwell MD Status: REG ER Study: Brain/Head without Contrast Date of Exam: 12/01/17 Exam# [id number] Ordering Dr: Meche Ramos MD STUDY: CT [...] Carlos Cai MD at 11:12 EST Tel [phone], Service support , CC: Meche Ramos MD; Aaron Tidwell MD Lead Web Application Developer: Signed RENAL PROFILE Collected: 11/29/2017 Status: F Source: [place] 9:21 AM [facility] TYPE CODE TESTS RESULT OUT OF [...] CO2 26.0 Performed By: #### L500.3600 #### [facility] [address] [place], [address] VITAMIN D,25 HYDROXY Collected: 11/29/2017 Status: F Source: [place] 9:21 AM [facility] TYPE CODE TESTS RESULT OUT OF RANGE REFERENCE UNITS LAB L506.1000 29.95-100.01 ng/mL Normal Vitamin D 33.2 25-OH Result Comment: Vitamin D 25(OH) Status Range Deficiency <20 ng/mL (50nmol/L) Insuffciency 20 - 30 ng/mL (50 - 75 nmol/L) Sufficiency 30 - 100 ng/mL (75 - 250 nmol/L) Toxicity >100 ng/mL (>250 nmol/L) Performed By: #### L506.1000 #### [facility] [address] [place], [address] PTHIN Collected: 11/29/2017 Status: F Source: [place] 9:21 AM [facility] TYPE CODE TESTS RESULT OUT OF RANGE REFERENCE UNITS LAB L509.1000 18.4-80.1 pg/mL Low PTHIN 2.8 Result Comment: Please Note: PTH INTACT METHOD AND REFERENCE RANGE CHANGE Effective 09/13/2017. Performed By: #### L509.1000 #### [facility] [address] [facility] [place], [address] VITAMIN D 1,25-DIHYDROXY Collected: 11/29/2017 Status: F Source: [place] 9:21 AM [facility] TYPE CODE TESTS RESULT OUT OF RANGE REFERENCE UNITS LAB L3300.0960 19.9-79.3 pg/mL Normal VITD 1,25 68.7 [address]200 Result Comment: Performed at: - [facility] [id number] White Washer Piler: Jimmy Patino MD, Phone: [phone] Performed By: #### L3300.0960 #### [facility] (refer to report for specific site) refer to report for address and phone number EMERGENCY DEPARTMENT Observed: 11/29/2017 Status: F Source: [place] SUMMARY 8:44 AM [facility] Medical Records Department [address] [place] [address] Emergency Department Summary 11/29/17 0838 MR#: [id number] Acct: [id number] Name: DI ZAPATA Rep #: [id number] : 1945 72 From: Esa Roca MD [...] 72 and on Xarelto based on the Syrian CT head rule and the [place] rule radiologic imaging is indicated. Wound was [...] 2.0 cm This note was generated with Telik dictation software. It may contain incorrect words, [...] your Primary Care Provider. Call [facility] ([phone]) or report to the closest Emergency Room. Call 911 if necessary. 11/29/17 0844 <Electronically signed by Esa Roca MD> Date Esa Roca MD Cosigner Signature (If Indicated): Date CC: Aaron Tidwell MD BRAIN/HEAD WITHOUT Observed: 11/29/2017 Status: F Source: [place] CONTRAST 7:54 AM [facility] Imaging Services [address] [place] [address] Brain/Head without Contrast MR#: [id number] Acct: [id number] Name: DI ZAPATA Rep #: [id number] : 1945 F 72 From: Carlos Cai MD PCP: Aaron Tidwell MD Status: REG ER Study: Brain/Head without Contrast Date of Exam: 11/29/17 Exam# [id number] Ordering Dr: Esa Roca MD STUDY: CT [...] Carlos Cai MD at 8:32 EST Tel [phone], Service support , CC: Esa Roca MD; Aaron Tidwell MD Lead Web Application Developer: Signed EMERGENCY DEPARTMENT Observed: 11/18/2017 Status: F Source: [place] SUMMARY 10:57 PM [facility] Medical Records Department [address] [place] [address] Emergency Department Summary [id number] MR#: [id number] Acct: [id number] Name: DI ZAPATA Rep #: [id number] : 1945 72 From: Christen Prado MD [...] Wound check This note was generated with Telik dictation software. It may contain incorrect words, [...] your Primary Care Provider. Call [facility] ([phone]) or report to the closest Emergency Room. Call 911 if necessary. 11/18/17 822 <Electronically signed by Christen Prado MD> Date Christen Prado MD Cosigner Signature (If Indicated): Date CC: Aaron Tidwell MD DISCHARGE INSTRUCTION Observed: 11/18/2017 Status: F Source: [place] 10:17 PM [facility] Medical Records Department [address] [place] [address] Discharge Instruction 11/18/172212 MR#: [id number] Acct: [id number] Name: DI ZAPATA Rep #: [id number] : 1945 72 From: Christen Prado MD [...] your Primary Care Provider. Call [facility] ([phone]) or report to the closest Emergency Room. Call 911 if necessary. 11/18/172216 <Electronically signed by Christen Prado MD> Date Christen Prado MD Cosigner Signature (If Indicated): Date CC: Aaron Tidwell MD SCREENING MAMM (CAD), Observed: 11/17/2017 Status: F Source: [place] 9:59 AM [facility] Imaging Services [address] [place] [address] SCREENING MAMM (CAD), BILAT MR#: [id number] Acct: [id number] Name: VAISHALI ZAPATANIECY Lange Rep #: [id number] : 1945 F 72 From: Carlos Cai MD PCP: Aaron Tidwell MD Status: REG CLI Study: SCREENING MAMM (CAD), BILAT Date of Exam: 11/17/17 Exam# [id number] Ordering Dr: Aaron Tidwell MD MAMMOGRAPHY - [...] delay biopsy of a clinically suspicious abnormality. [id number] Electronically Signed: Carlos Cai MD at 11:29 EST Tel [phone], Service support , CC: Aaron Tidwell MD Lead Web Application Developer: Signed PROGRESS Observed: 11/15/2017 Status: COMPLETED Source: [place] 12:59 PM [facility] REPOSITORY HNO ID: [id number] Author: Aaron Tidwell Service: (none) Author Type: Physician Type: Progress Notes Filed: 11/15/2017 1:10 PM Note Text: This note was created using PanXchange. Subjective Di Zapata is a 72 year [...] TIME W/INR Collected: 11/13/2017 Status: F Source: [place] 9:28 AM [facility] TYPE CODE TESTS RESULT OUT OF RANGE REFERENCE UNITS LAB L300.4150 11.7-14.9 SECONDS High PROTIME 27.0 LAB L300.4200 Normal INR 2.6 Performed By: #### L300.3900 #### [facility] [address] [place], [place], [address] PROTHROMBIN TIME W/INR Collected: 11/10/2017 Status: F Source: [place] 8:41 AM [facility] Order Comment: Send Results To: Aaron Tidwell Reason for Laboratory Test coumadin monitoring TYPE CODE TESTS RESULT OUT OF REFERENCE UNITS RANGE LAB L300.4150 11.7-14.9 SECONDS High PROTIME 45.3 LAB L300.4200 High alert INR 5.1 Result Comment: CRITICAL VALUE VERIFIED. CALLED TO [facility] 11/10/17 0917 Maggy Cueto. RESULTS READ BACK BY SAME . Performed By: #### L300.3900 #### [facility] [address] [place], [address] PROTHROMBIN TIME W/INR Collected: 11/08/2017 Status: F Source: [place] 11:15 AM [facility] TYPE CODE TESTS RESULT OUT OF REFERENCE UNITS RANGE LAB L300.4150 11.7-14.9 SECONDS High PROTIME 73.8 LAB L300.4200 High alert INR 9.6 Result Comment: CRITICAL VALUE VERIFIED. CALLED TO [facility] 11/08/17 1138 Maggy Cueto. RESULTS READ BACK BY SAME . Performed By: #### L300.3900 #### [facility] [address] [place], [address] HEMOGLOBIN A1C Collected: 11/08/2017 Status: F Source: [place] 10:49 AM [facility] TYPE CODE TESTS RESULT OUT OF RANGE REFERENCE UNITS LAB L501.9985 4.2-6.3 % High HGB A1C 6.9 Performed By: #### L501.9985 #### [facility] [address] [place], [address] BASIC METABOLIC Collected: 11/08/2017 Status: F Source: [place] PROFILE (BMP) 10:49 AM [facility] TYPE CODE TESTS RESULT OUT OF [...] GAP 12 Performed By: #### L500.2500 #### [facility] [address] [place], [address] PROTIME W/INR Collected: 11/01/2017 Status: F Source: [place]INGER[place] 9:48 AM [facility] TYPE CODE TESTS RESULT OUT OF REFERENCE UNITS RANGE LAB L9200.1001 11.9-14.4 SEC High PROTIME ISTAT 34.1 Result Comment: Reference Range 11.9 - 14.4 LAB L9200.2000 Normal INR ISTAT 3.00 Result Comment: Critical Value > 3.5 Performed By: #### L9200.0000 #### [facility] Point of Care [address] [place] [address] WOUND CTR HISTORY Observed: 10/27/2017 Status: F Source: [place] AND PHYSICAL 8:18 PM [facility] [address] [place], [place] [address] [place] [address] Wound Ctr History AND Physical 10/27/171935 MR#: [id number] Acct: [id number] Name: DI ZAPATA Rep #: [id number] : 1945 72 From: Meche Delvalle DO [...] - Unspecified diastolic (congestive) heart failure (5) detention current use of anticoagulant Status: Chronic Current Visit: Yes Code(s): Z79.01 - detention (current) use of anticoagulants (6) Chronic atrial fibrillation Status: Chronic Current Visit: Yes Code(s): I48.2 - Chronic atrial fibrillation Comment: DCCV 10/10, 10/2015; MAZE procedure @ [place] 01/12/2017; (7) Chronic diastolic (congestive) heart failure [...] detail: with chronic kidney disease Diabetes mellitus vermin exterminator insulin use: without vermin exterminator use Chronic kidney disease stage: stage 3 [...] up. She recently saw Dr. Almonte, her railway track worker as well and the dose of her [...] Heart failure with 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 (Chronic) detention current use of anticoagulant (Chronic) Chronic atrial fibrillation (Chronic) [facility] 10/10, 10/2015; MAZE procedure @ [place] 01/12/2017; [...] Date Recorded By Document 10/27/17 16:51 TM [id number] 10/27/17 16:55 Wound Center Nurse 2 [Procedure/Treatment] [...] Date Recorded By Document 10/27/17 16:51 TM [id number] 10/27/17 16:55 Wound Center Nurse 2 #2 Left calf -Time 16:51 No debridement was completed today Assessment/Plan Active Problems (Last Updated 10/11/17 @ 09:06 by Gosia Martinez) Edema, lower extremity (Chronic) Pulmonary hypertension, secondary (Chronic) History of cardiac radiofrequency ablation (RFA) (Chronic) 1st part of MAZE procedure Lt Atrial Ablation 01/12/17 @ [place] Heart failure with 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 (Chronic) 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) Chronic atrial fibrillation (Chronic) [facility] 10/10, 10/2015; MAZE procedure @ [place] 01/12/2017; Chronic diastolic (congestive) heart failure (Chronic) [...] CARDIOLOGY VISIT Observed: 10/23/2017 Status: F Source: [place] REPORT 6:08 PM [facility] [address] [place] [address]. [address] [place] [address] OFFICE VISIT Date of Service: 10/11/17 MR#: [id number] Acct: [id number] Name: DI ZAPATA Rep #: [id number] : 1945 Provider: JAC Breaux Age/Sex: 71/F [place] [facility] [place]: Signed HPI 3 M FU: Details: [...] Lt brachial Intake Visit Reasons: 3 M FU Upper Lining Cementer Required: No Accompanied by: Daughter Is patient in pain?: Yes (EDIN lower extremity pain, ache) Pain scale (1-10): [...] 10/11/17] Ejection fraction %: 55 to 59 PFSH Medical History Pulmonary hypertension, secondary (Acute) Dyspnea on exertion (Acute) detention current use of anticoagulant (Chronic) Chronic atrial [...] I48.2 DCCV 10/10, 10/2015; MAZE procedure @ [place] 01/12/2017; Onofre - NICOLE Borrego Patient's heart rate is well-controlled today in office. We will continue current beta-alok and Coumadin therapy. We will continue to monitor this through exam and ECGs as needed. 2. Dyspnea on exertion R06.09 NICOLE Medeiros Patient states this has not worsened. Most recently her railway track worker has maintained her Lasix to 40 mg [...] lower extremity ulcers. 4. Essential hypertension I10 Onofre Breaux, 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-C Patient's blood pressure is well-controlled today in the office. We will continue to monitor this. We will not make any medication regimen changes. 5. Pulmonary hypertension, secondary Plan - NICOLE Borrego Patient will continue with diuretic and CPAP [...] prior to saving. 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 (CIVIL TRANSPORTATION ENGINEER) Coding Level of Care Code Off vis,est,level 3 Diagnoses Chronic atrial fibrillation I48.2 Dyspnea on exertion R06.09 Localized edema R60.0 Essential hypertension I10 Hypertension type: essential hypertension Pulmonary hypertension, secondary 10/18/17 1212 <Electronically signed by Jose RIVERA> Date Jose RIVERA 10/23/17 1808<Electronically signed by Glen Muñoz MD> Cosigner Signature: Date (if applicable) Glen Muñoz MD CC: Aaron Tidwell MD PROGRESS Observed: 10/19/2017 Status: COMPLETED Source: [place] 2:46 PM [facility] [place] REPOSITORY O ID: [id number] Author: Aaron Tidwell Service: (none) Author Type: Physician Type: Progress Notes Filed: 10/19/2017 2:59 PM Note Text: This note was created using SimpleCrewriter. Ginger Zapata is a 72 year old female [...] Venous Stasis Ulcers of Both Lower Extremities ([facility]) Current Outpatient Prescriptions: gabapentin (NEURONTIN) 100 mg [...] - ICD9: V76.12, ICD10: Z12.31 Send to [facility]. - [place] SCREENING 6. Hypercalcemia - ICD9: 275.42, ICD10: E83.52 Recheck. Follow up next month as previously scheduled. Aaron Tidwell MD CNOV Observed: 10/19/2017 Status: COMPLETED Source: [place] 11:40 AM [facility] REPOSITORY Office Visit (INTMWS) DI ZAPATA ([id number]) 1945 F Date Time Provider Department 10/19/17 11:40 AM AARON TIDWELL INTMWS During your visit today, we recorded the following information about you: Temperature Pulse Respiration Blood pressure 97.5 degrees 92/minute 16/minute 128/82 Weight 87.5 kg Aaron Tidwell MD 10/19/2017 2:59 PM Signed This note was created using PanXchange. Subjective Di Zapata is a 72 year [...] - ICD9: V76.12, ICD10: Z12.31 Send to [facility]. - [place] SCREENING 6. Hypercalcemia - [...] [E83.52] Order(s):TETANUS/DIPTHERIA BOOSTER (OVER 7), PF IM [35425SEV] Order #: [id number] ROS[place] SCREENING [[id number]] Order #: [id number] FUTURE BASIC METABOLIC PNL [SQBMP] Order #: [id number] FUTURE HGB A1C [FMNOK3G] Order #: [id number] FUTURE Prescriptions as of 10/19/2017 Sig: GABAPENTIN 100 MG CAPSULE Take 100 mg by mouth four nakita* OXYCONTIN 20 MG TABLET,CRUSH * Take 20 [...] 10/19/2017 12:22 PM >> AARON TIDWELL MD [facility] Oct 19, 2017 12:22 PM Received from: External Pharmacy WARFARIN 5 MG TABLET >> Luz Pascual LPN 10/19/2017 12:09 PM >> LUZ PASCUAL LPN [facility] Oct 19, 2017 12:09 PM Taking 3mg all days METFORMIN 500 MG TABLET >> Luz Pascual LPN 10/19/2017 12:08 PM >> LUZ PASCUAL LPN [facility] Oct 19, 2017 12:08 PM Discontinued by [...] DUPLEX LOWER Observed: 10/18/2017 Status: F Source: [place] EXTREMITY 11:31 AM [facility] Cardiovascular Services [address] [place] [address] Venous Duplex - [facility] Extrem 10/18/17 0952 MR#: [id number] Acct: [id number] Name: DI ZAPATA Rep #: [id number] : 1945 72 From: Santiago Pelaez MD [...] Dictated: 10/18/17 0952 Date Transcribed: 10/18/17 113 Lead Web Application Developer: Signed ARTERIAL DUPLEX US Observed: 10/18/2017 Status: F [facility] 11:30 AM [facility] Cardiovascular Services [address] [place] [address] Art Duplex US Bilat Lower Ext 10/18/17 1017 MR#: [id number] Acct: [id number] Name: DI ZAPATA Rep #: [id number] : 1945 72 From: Santiago Pelaez MD Attending Dr: Santiago Pelaez MD Status: REG CLI Ordering Dr: Santiago Pelaez MD Date: 10/18/17 Location: [facility] Sex: F C Admitted: Reason For [...] Dictated: 10/18/17 1017 Date Transcribed: 10/18/17 1130 Lead Web Application Developer: Signed ALLERGIES ALLERGIES DATE TYPE / CODE NAME / CODE REACTION SEVERITY SOURCE 10/08/2018 Drug enalapril Rash Unknown [place] Allergy/416 maleate/[id number] Community 590224([facility] ED CT) Repository 10/08/2018 Drug hydroxyzine Rash Unknown [place] Allergy/416 HCl/[id number](RXN [facility]22[facility] ED [facility]) Repository 10/08/2018 Drug hydroxyzine Rash Unknown [place] Allergy/416 pamoate/[id number] [facility] 141094([facility] ED CT) Repository 10/08/2018 Drug meperidine Rash Unknown [facility] Allergy/416 HCl/E483601407(RXN [facility] ED [facility]) Repository 10/08/2018 Drug doxazosin Other Unknown [place] Allergy/416 mesylate/[id number] Community 792660([facility] 1[facility] ED [facility]) Repository 10/08/2018 Drug amlodipine Unknown Unknown [place] Allergy/416 besylate/[id number] [facility] 967029([facility] 3[facility] ED [facility]) Repository 10/08/2018 Drug enalaprilat Rash Unknown [facility] Allergy/416 dihydrate/Y5529486 Community 079030([facility] ED [facility]) Repository 10/08/2018 Drug Sulfa (Sulfonamide Hives Unknown [facility] Allergy/416 Antibiotics)/F0010 Community 329599([facility] 22231[facility] ED CT) Repository 10/08/2018 Drug doxycycline/B94020 Unknown Unknown [place] Allergy/416 2748(NO) Community 178265([facility] ED CT) Repository 10/08/2018 Drug sulfamethoxazole/F Hives Unknown [place] Allergy/416 769792818(RXNORM) Community 880105([facility] ED CT) Repository 10/08/2018 Drug trimethoprim/F0060 Hives Unknown [place] Allergy/416 66741(RXNORM) Community 530648([facility] ED CT) Repository 10/08/2018 Drug doxazosin/D0423888 Unknown Unknown [place] Allergy/416 93(RXNORM) Community 493725([facility] ED CT) Repository 10/08/2018 Drug ceftriaxone/Q21549 Rash Unknown [facility] Allergy/416 4849(RXNORM) Community 433738([facility] ED CT) Repository 08/10/2017 DRUG CEFTRIAXONE OTHER: SEE C [facility] INGREDI/[address] [place] 288891(SNOM Repository ED CT) 04/24/2013 DRUG DOXAZOSIN UNKNOWN [facility] INGREDI/419 [address] [place] 862240(SNOM Repository ED CT) 04/06/2011 DRUG AMLODIPINE SWELLING [facility] INGREDI/419 BESYLATE [address] [place] 253851(SNOM Repository ED CT) 06/29/2007 DRUG/678151 SULFAMETHOXAZOLE-T RASH [facility] 003(SNOMED RIMETHOPRIM [place] CT) Repository 04/18/2006 DRUG/027509 MEPERIDINE (PF) [facility] 003(SNOMED [place] CT) Repository 04/18/2006 DRUG DOXYCYCLINE [facility] INGREDI/419 [address] [place] 457691(SNOM Repository ED CT) 04/18/2006 DRUG ENALAPRIL MALEATE COUGH [facility] INGREDI/419 [address] [place] 174354(SNOM Repository ED CT) 04/18/2006 DRUG HYDROXYZINE HCL [facility] INGREDI/419 [address] [place] 466371(SNOM Repository ED CT) 07/04/2005 Drug SULFA (SULFONAMIDE RASH [facility] Class/86977 ANTIBIOTICS) [place] 1003(SNOMED Repository CT) ENCOUNTERS ENCOUNTERS ADMIT/DISCHARGE ACCOUNT ADMITTING ENCOUNTER LOCATION SOURCE NUMBER CLASS 10/08/2018/10/08/19 [id number] Ambulatory BMSBuilding:Paxton Pickens 19 [place].[facility] Repository 09/28/2018 [id number] [facility] ing:LAB.FUTUR Repository E 09/27/2018 [id number] [facility] ing:POLAB3 Repository 09/26/2018 [id number] Ambulatory [facility] HospitalBuild Hospital ing:WC Repository 09/19/2018/09/24/20 [id number] Ambulatory [address] HospitalBuild Hospital ing:WC Repository 09/05/2018 [id number] Ambulatory [facility] HospitalBuild Hospital ing:LAB.FUTUR Repository E 09/03/2018 [id number] Ambulatory BMSBuilding:W [facility] Repository 09/03/2018 [id number] Ambulatory [facility] HospitalBuild Hospital ing:PSN Repository 08/29/2018 [id number] Ambulatory BMSBuilding:[facility] Hospital Repository 08/28/2018 [id number] Ambulatory [facility] HospitalBuild Hospital ing:PSN Repository 08/23/2018 [id number] Ambulatory [facility] HospitalBuild Hospital ing:CT Repository 08/22/2018/08/24/20 [id number] Ambulatory [address] HospitalBuild Hospital ing:WC Repository 08/21/2018 [id number] Ambulatory [facility] HospitalBuild Hospital ing:MEDOUTP Repository 08/20/2018/08/20/20 [id number] Ambulatory [address] HospitalBuild Hospital ing:ENRoom: Repository 15 08/20/2018/08/20/20 [id number] Ambulatory BMSBuilding:B [facility] 18 MS.CF.[facility] Repository 08/13/2018 [id number] Ambulatory [facility] HospitalBuild Hospital ing:MEDOUTP Repository 08/08/2018/08/08/20 [id number] Ambulatory BMSBuilding:B [facility] 18 MS.[facility] Hospital Repository 08/07/2018/08/07/20 [id number] Ambulatory BMSBuilding:B [place] 18 MS.[facility] Hospital Repository 08/07/2018 [id number] Ambulatory [facility] HospitalBuild Hospital ing:MEDOUTP Repository 08/01/2018/08/01/20 [id number] Ambulatory BMSBuilding:B [place] 18 MS.[facility] Repository 07/31/2018 [id number] [facility] ing:MEDOUTP Repository 07/26/2018/07/26/20 [id number] Ambulatory [address] Repository 07/26/2018/07/27/20 [id number] Ambulatory [address] Repository 07/25/2018/07/25/20 [id number] Ambulatory [place] [facility] HospitalBuild Hospital ing: Repository 07/24/2018 [id number] [facility] ing:MEDOUTP Repository 07/16/2018 [id number] [facility] ing:MEDOUTP Repository 07/11/2018 [id number] [facility] ing:MEDOUTP Repository 07/09/2018 [id number] [facility] ing:MEDOUTP Repository 07/03/2018/07/03/20 [id number] Ambulatory [place] [facility] HospitalBuild Hospital ing:SDCRoom: Repository AC15 07/02/2018 [id number] [facility] ing:MEDOUTP Repository 06/28/2018 [id number] [facility] Hospital ing:MEDOUTP Repository 06/28/2018 [id number] [facility] Hospital ing:LAB.FUTUR Repository E 06/27/2018/06/28/20 [id number] Ambulatory [address] Repository 06/25/2018 [id number] [facility] ing:MEDOUTP Repository 06/21/2018 [id number] [facility] ing:MEDOUTP Repository 06/20/2018/06/24/20 [id number] Ambulatory [place] [address] [place] [address] HospitalBuild Hospital ing: Repository 06/18/2018 [id number] Ambulatory [facility] HospitalBuild Hospital ing:MEDOUTP Repository 06/14/2018 [id number] [facility] ing:MEDOUTP Repository 06/11/2018 [id number] Ambulatory [place] [facility] HospitalBuild Hospital ing:MEDOUTP Repository 06/07/2018 [id number] [facility] ing:MEDOUTP Repository 06/04/2018 [id number] [facility] ing:MEDOUTP Repository 06/01/2018/06/01/20 [id number] Ambulatory [place] Cel[place] [address] [place] [address] HospitalBuild Hospital ing:SDCRoom: Repository AC12 05/31/2018 [id number] [facility] ing:MEDOUTP Repository 05/29/2018 [id number] Ambulatory [facility] HospitalBuild Hospital ing:MEDOUTP Repository 05/24/2018 [id number] [facility] ing:MEDOUTP Repository 05/23/2018/05/25/20 [id number] Ambulatory [place] [facility] [address] [place] [address] HospitalBuild Hospital ing:WC Repository 05/23/2018 [id number] [facility] ing:MEDOUTP Repository 05/23/2018/05/24/20 [id number] Ambulatory [address] Repository 05/21/2018 [id number] [facility] ing:MEDOUTP Repository 05/17/2018 [id number] [facility] ing:MEDOUTP Repository 05/14/2018 [id number] Ambulatory [facility] HospitalBuild Hospital ing:MEDOUTP Repository 05/10/2018 [id number] [facility] ing:MEDOUTP Repository 05/07/2018 [id number] [facility] ing:MEDOUTP Repository 05/03/2018 [id number] [facility] ing:MEDOUTP Repository 05/02/2018 [id number] [facility] ing:WC Repository 05/01/2018 [id number] [facility] ing:LAB Repository 04/30/2018 [id number] [facility] ing:MEDOUTP Repository 04/26/2018 [id number] [facility] ing:MEDOUTP Repository 04/23/2018 [id number] [facility] ing:MEDOUTP Repository 04/19/2018 [id number] [facility] ing:MEDOUTP Repository 04/18/2018/04/24/20 [id number] Ambulatory [facility] [place] [address] [place] [address] HospitalBuild Hospital ing:WC Repository 04/16/2018 [id number] [facility] ing:MEDOUTP Repository 04/12/2018 [id number] [facility] ing:MEDOUTP Repository 04/12/2018/04/12/20 [id number] Ambulatory BMSBuilding:B [facility] 18 [facility] Hospital Repository 04/11/2018/04/24/20 [id number] Ambulatory [place] [address] [place] [address] HospitalBuild Hospital ing:WC Repository 04/10/2018 [id number] [facility] ing:MEDOUTP Repository 04/10/2018/04/10/20 [id number] Ambulatory BMSBuilding:B [place] 18 MS.[facility] Hospital Repository 04/09/2018 [id number] [facility] Hospital ing:RAD Repository 04/08/2018/04/08/20 [id number] Emergency [place] [address] [place] [address] HospitalBuild Hospital ing:ED Repository 04/04/2018 [id number] [facility] ing:MEDOUTP Repository 03/29/2018 [id number] [facility] ing:MEDOUTP Repository 03/26/2018 [id number] [facility] ing:LAB Repository 03/22/2018 [id number] [facility] ing:MEDOUTP Repository 03/21/2018/03/24/20 [id number] Ambulatory [facility] HospitalBuild Hospital ing:WC Repository 03/14/2018 [id number] [facility] ing:MEDOUTP Repository 03/07/2018 [id number] [facility] ing:MEDOUTP Repository 03/05/2018 [id number] [facility] Hospital ing:LAB.FUTUR Repository E 02/28/2018/03/24/20 [id number] Ambulatory [place] [facility] HospitalBuild Hospital ing:WC Repository 02/22/2018 [id number] [facility] ing:POLAB3 Repository 02/21/2018/02/23/20 [id number] Ambulatory [facility] HospitalBuild Hospital ing:WC Repository 02/20/2018/02/21/20 [id number] Ambulatory [address] Repository 02/20/2018/02/23/20 [id number] Ambulatory [address] Repository 02/09/2018 [id number] Ambulatory BMS [facility] Hospital Repository 02/01/2018/02/23/20 [id number] Ambulatory [place] [facility] HospitalBuild Hospital ing:WC Repository 01/31/2018 [id number] [facility] ing:POLAB3 Repository 01/24/2018/01/25/20 [id number] Ambulatory [address] [place] Repository 01/17/2018/01/23/20 [id number] Ambulatory [place] [facility] [address] [place] [address] HospitalBuild Hospital ing:WC Repository 01/09/2018 [id number] Ambulatory [facility] [place] Repository 01/09/2018/01/11/20 [id number] Ambulatory [address] Repository 12/26/2017/12/27/19 [id number] Ambulatory BMSBuilding:B [place] 18 MS.[facility] Repository 12/25/2017 [id number] [facility] Hospital ing:LAB Repository 12/19/2017/12/20/19 [id number] Ambulatory BMSBuilding:B [place] 18 [place].[facility] Repository 12/12/2017/01/01/20 [id number] Ari Rainey Chi Inpatient [facility] [place] 18 [facility]counter [facility] ing:TCURoom: Repository ELH58Ltd: 1 12/11/2017 [id number] Ambulatory BMSBuilding:W Cel[facility] Repository 12/07/2017/12/13/19 [id number] [facility], Inpatient [place] Cel[place] 18 Frederic Encounter [facility] ing:PCURoom: Repository SCC241Rxs: 1 12/07/2017 [id number] John, Ambulatory BMSBuilding:B [place].CF.[facility] Repository 12/07/2017 [id number] [facility], Ambulatory BMSBuilding:B [place] MS.[facility] Repository 12/07/2017 [id number] [facility], Ambulatory BMSBuilding:B [place] MS.[facility] Repository 12/07/2017 [id number] [facility], Ambulatory BMSBuilding:B [facility] [place].CF.[facility] Repository 12/07/2017 [id number] [facility], Ambulatory BMSBuilding:B [place].CF.[facility] Repository 12/07/2017 [id number] [facility], Ambulatory BMSBuilding:B [place] Frederci MS.[facility] Repository 12/07/2017 [id number] [facility], Ambulatory BMSBuilding:B [facility] [place].CF.[facility] Repository 12/07/2017 [id number] [facility], Ambulatory BMSBuilding:B [facility] [place] MS.[facility] Repository 12/07/2017 [id number] [facility], Ambulatory BMSBuilding:B [facility] [place] MS.[facility] Repository 12/07/2017 [id number] [facility], Ambulatory BMSBuilding:B [facility] [place] MS.[facility] Repository 12/07/2017/12/13/19 [id number] Ambulatory BMSBuilding:W [facility] 18 [facility] Repository 12/06/2017/12/24/19 [id number] Ambulatory [facility] Hospital ing:WC Repository 12/04/2017/12/05/19 [id number] Emergency [place] Hospital ing:ED Repository 12/01/2017/12/02/19 [id number] Emergency [address] Hospital ing:ED Repository 11/29/2017/11/30/19 [id number] Emergency [address] Hospital ing:ED Repository 11/22/2017/11/22/19 [id number] Ambulatory [address] Hospital ing:WC Repository 11/18/2017/11/18/19 [id number] Emergency [address] Hospital ing:ED Repository 11/17/2017 [id number] Ambulatory [facility] ing:BI Repository 11/15/2017/11/17/19 [id number] Ambulatory [address] Repository 11/13/2017/11/13/19 [id number] Ambulatory [address] Hospital ing:LAB Repository 10/25/2017/10/25/19 [id number] Ambulatory [address] Hospital ing:WC Repository 10/19/2017/10/23/19 [id number] Ambulatory [address] Repository 10/18/2017 [id number] Ambulatory [facility] Hospital ing:CVS Repository 10/18/2017 [id number] Ambulatory BMSBuilding:B [facility] [place].[facility] Repository 10/11/2017/10/11/19 [id number] Ambulatory BMSBuilding:B [facility] 18 MS.[facility] Repository PAYERS PAYERS ENCOUNTER GUARANTOR PAYER SUBSCRIBER SOURCE 10/08/2018 GERALDO Cortez Primary DI E [facility] [id number] OLD Insurance:CINTHYA DOWTDOB: [facility] [id number] Indian Dental ClinicSTAC[facility] Number: Repository [id number]: ([phone]) [id number] [phone] () Date:4519-92-85XJ [place] [address] [address]CB: 10/08/2018 Secondary NOT GIVENUNK [place] Insurance:SELF PAY [facility] Number: Effective Repository Date:2018-10-02 09/28/2018 GERALDO Cortez Primary DI E [place] [id number] OLD Insurance:CINTHYA BURGETTDOB: [facility] [id number] Number: Repository [address]Suj: 330 [id number] [phone] () Date:1153-74-85WG [address] [address]PZ: 09/28/2018 Secondary NOT GIVENUNK [place] Insurance:SELF PAY [facility] Number: Effective Repository Date:2018-09-28 09/27/2018 GERALDO Cortez Primary DI E [facility] [id number] OLD Insurance:CINTHYA BURGETTDOB: [facility] [id number] Medical Center Number: Repository [id number]: (330 [id number] [phone] () Date:9171-60-91LQ [address] [address]ZE: 09/27/2018 Secondary NOT GIVENUNK [place] Insurance:SELF PAY [facility] Number: Effective Repository Date:2018-09-10 09/26/2018 GERALDO Cortez Primary NOT GIVENUNK [facility] [id number] OLD Insurance:SELF PAY [place] Number: Effective Repository 26924Are: (330) Date:2018-09-25 [phone] () 09/19/2018 GERALDO Cortez Primary DI E [place] [id number] OLD Insurance:CINTHYA BURGETTDOB: [facility] [id number] Medical Center Number: Repository [id number]: 330 [id number] [phone] () Date:2793-50-26PM [address] [address]HE: 09/19/2018 Secondary NOT GIVENUNK [facility] Insurance:SELF PAY [facility] Number: Effective Repository Date:2018-08-25 09/05/2018 GERALDO Cortez Primary DI E [place] [id number] OLD Insurance:CINTHYA BURGETTDOB: [facility] [id number] Medical Center Number: Repository [id number]: 330 [id number] [phone] () Date:9890-26-20BM [facility] [place] [address]HQ: 09/05/2018 Secondary NOT GIVENUNK [facility] Insurance:SELF PAY [facility] Number: Effective Repository Date:2018-08-06 09/03/2018 GERALDO Cortez Primary DI E [facility] [id number] OLD Insurance:CINTHYA BURGETTDOB: [facility] [id number] Medical Center Number: Repository [address]Man: 330 [id number] [phone] () Date:1754-93-40LV [facility] [address] [address]EC: 09/03/2018 Secondary NOT GIVENUNK [facility] Insurance:SELF PAY [facility] Number: Effective Repository Date:2018-09-03 09/03/2018 GERALDO Cortez Primary DI E [place] [id number] OLD Insurance:CINTHYA BURGETTDOB: [facility] [id number] Medical Center Number: Repository [id number]: 330 [id number] [phone] () Date:2567-43-55KZ [facility] [place] [address]CD: 09/03/2018 Secondary NOT GIVENUNK [facility] Insurance:SELF PAY [facility] Number: Effective Repository Date:2018-08-08 08/29/2018 GERALDO Cortez Primary DI E [facility] [id number] OLD Insurance:CINTHYA BURGETTDOB: [facility] [id number] Medical Center Number: Repository [id number]: 330 [id number] [phone] (HP) Date:1208-38-26JW [facility] [address] [place] [address]DW: 08/29/2018 Secondary NOT GIVENUNK [place] Insurance:SELF PAY [facility] Number: Effective Repository Date:2018-08-29 08/28/2018 GERALDO Cortez Primary DI E [facility] [id number] OLD Insurance:CINTHYA BURGETTDOB: [facility] [id number] Medical Center Number: Repository [id number]: 330 [id number] [phone] (HP) Date:1860-89-72MA [facility] [place] [address]RV: 08/28/2018 Secondary NOT GIVENUNK [place] Insurance:SELF PAY [facility] Number: Effective Repository Date:2018-08-08 08/23/2018 GERALDO R Primary DI E [facility] [id number] OLD Insurance:CINTHYA BURGETTDOB: [facility] [id number] Medical Center Number: Repository [id number]: 330 [id number] [phone] () Date:8042-37-73DL [facility] [address] [address]EZ: 08/23/2018 Secondary NOT GIVENUNK [place] Insurance:SELF PAY [facility] Number: Effective Repository Date:2018-08-13 08/22/2018 GERALDO R Primary DI E [facility] [id number] OLD Insurance:CINTHYA BURGETTDOB: [facility] [id number] Medical Center Number: Repository [id number]: 330 [id number] [phone] (HP) Date:0738-64-65VV [facility] [address] [place] [address]EW: 08/22/2018 Secondary NOT GIVENUNK [facility] Insurance:SELF PAY [facility] Number: Effective Repository Date:2018-07-26 08/21/2018 GERALDO Cortez Primary DI E [place] [id number] OLD Insurance:CINTHYA BURGETTDOB: [facility] [id number] Medical Center Number: Repository [id number]: 330 [id number] [phone] () Date:4330-82-13ZP [facility] [address] [address]PI: 08/21/2018 Secondary NOT GIVENUNK [place] Insurance:SELF PAY [facility] Number: Effective Repository Date:2018-08-13 08/20/2018 GERALDO Cortez Primary DI E [place] [id number] OLD Insurance:CINTHYA BURGETTDOB: [facility] [id number] Medical Center Number: Repository [id number]: 330 [id number] [phone] () Date:2102-98-48SR [facility] [address] [address]QO: 08/20/2018 Secondary NOT GIVENUNK [facility] Insurance:SELF PAY [facility] Number: Effective Repository Date:2018-08-01 08/20/2018 GERALDO Cortez Primary DI E [facility] [id number] OLD Insurance:CINTHYA BURGETTDOB: [facility] [id number] Medical Center Number: Repository 41328Kww: 330 [id number] [phone] () Date:0555-37-89KU [facility] [address] [place] [address]OR: 08/20/2018 Secondary NOT GIVENUNK [place] Insurance:SELF PAY [facility] Number: Effective Repository Date:2018-08-20 08/13/2018 GERALDO Cortez Primary DI E [place] [id number] OLD Insurance:CINTHYA BURGETTDOB: [facility] [id number] Medical Center Number: Repository 35235Syj: 330 [id number] [phone] () Date:4803-69-03AE [facility] [address] [place] [address]FJ: 08/13/2018 Secondary NOT GIVENUNK [place] Insurance:SELF PAY [facility] Number: Effective Repository Date:2018-08-07 08/08/2018 GERALDO Cortez Primary DI E [place] [id number] OLD Insurance:CINTHYA BURGETTDOB: [facility] [id number] Medical Center Number: Repository 14271Heg: 330 [id number] [phone] (HP) Date:5462-14-24HE [facility] [address] [place] [address]AG: 08/08/2018 Secondary NOT GIVENUNK [place] Insurance:SELF PAY [facility] Number: Effective Repository Date:2018-08-02 08/07/2018 GERALDO Cortez Primary DI E [place] [id number] OLD Insurance:CINTHYA BURGETTDOB: [facility] [id number] Medical Center Number: Repository 14619Efj: 330 [id number] [phone] () Date:4839-66-32WW [facility] [address] [place] [address]DM: 08/07/2018 Secondary NOT GIVENUNK [place] Insurance:SELF PAY [facility] Number: Effective Repository Date:2018-08-07 08/07/2018 GERALDO Cortez Primary DI E [place] [id number] OLD Insurance:CINTHYA BURGETTDOB: [facility] [id number] Medical Center Number: Repository [address]2007Lds: 330 [id number] [phone] (HP) Date:1339-18-32[address] [address]XL: 08/07/2018 Secondary NOT GIVENUNK [place] Insurance:SELF PAY [facility] Number: Effective Repository Date:2018-08-07 08/01/2018 GERALDO Cortez Primary DI E [place] [id number] OLD Insurance:CINTHYA [facility]URFL[facility] CENTERTDOB: [facility] [id number] Medical Center Number: Repository 34896Yar: 330 [id number] [phone] () Date:8812-40-04HJ [facility] [address] [address]KI: 08/01/2018 Secondary NOT GIVENUNK [place] Insurance:SELF PAY [facility] Number: Effective Repository Date:2018-07-31 07/31/2018 GERALDO Cortez Primary DI E [place] [id number] OLD Insurance:CINTHYA BURFLUSHING HOSPITAL MEDICAL CENTERTDOB: [facility] [id number] Medical Center Number: Repository 87436Nzy: 330 [id number] [phone] () Date:9283-26-27DV [facility] [address] [place] [address]WJ: 07/31/2018 Secondary NOT GIVENUNK [place] Insurance:SELF PAY [facility] Number: Effective Repository Date:2018-07-24 07/25/2018 GERALDO Cortez Primary DI E [place] [id number] OLD Insurance:CINTHYA BURGETTDOB: [facility] [id number] Medical Center Number: Repository 51302Tat: 330 [id number] [phone] () Date:0678-88-58UW [facility] [address] [address]NY: 07/25/2018 Secondary NOT GIVENUNK [place] Insurance:SELF PAY [facility] Number: Effective Repository Date:2018-06-25 07/24/2018 GERALDO Cortez Primary DI E [place] [id number] OLD Insurance:CINTHYA BURGETTDOB: [facility] [id number] Medical Center Number: Repository 71136Viz: 330 [id number] [phone] () Date:6355-41-18WW [facility] [address] [place] [address]LV: 07/24/2018 Secondary NOT GIVENUNK [place] Insurance:SELF PAY [facility] Number: Effective Repository Date:2018-07-18 07/16/2018 GERALDO Cortez Primary DI E [place] [id number] OLD Insurance:CINTHYA BURGETTDOB: [facility] [id number] Medical Center Number: Repository 38765Hod: 330 [id number] [phone] () Date:2861-85-54NV [address] [address]EU: 07/16/2018 Secondary NOT GIVENUNK [place] Insurance:SELF PAY [facility] Number: Effective Repository Date:2018-07-10 07/11/2018 GERALDO Cortez Primary DI E [place] [id number] OLD Insurance:CINTHYA BURGETTDOB: [facility] [id number] Medical Center Number: Repository 50843Sdi: 330 [id number] [phone] () Date:8650-56-40TR [address] [address]LW: 07/11/2018 Secondary NOT GIVENUNK [place] Insurance:SELF PAY [facility] Number: Effective Repository Date:2018-07-10 07/09/2018 GERALDO Cortez Primary DI E [place] [id number] OLD Insurance:CINTHYA BURGETTDOB: [facility] [id number] Medical Center Number: Repository 56443Lmi: 330 [id number] [phone] (HP) Date:4431-36-48OG [facility] [address] [address]CR: 07/09/2018 Secondary NOT GIVENUNK [place] Insurance:SELF PAY [facility] Number: Effective Repository Date:2018-07-02 07/03/2018 GERALDO Cortez Primary DI E [place] [id number] OLD Insurance:CINTHYA BURGETTDOB: [facility] [id number] Medical Center Number: Repository 58605Lvv: 330 [id number] [phone] () Date:1152-47-29HE [facility] [address] [place] [address]BB: 07/03/2018 Secondary NOT GIVENUNK [place] Insurance:SELF PAY [facility] Number: Effective Repository Date:2018-06-25 07/02/2018 GERALDO Cortez Primary DI E [place] [id number] OLD Insurance:CINTHYA BURGETTDOB: [facility] [id number] Medical Center Number: Repository 30144Eyy: 330 [id number] [phone] () Date:6612-42-19AD [facility] [address] [address]GH: 07/02/2018 Secondary NOT GIVENUNK [place] Insurance:SELF PAY [facility] Number: Effective Repository Date:2018-06-28 06/28/2018 GERALDO Cortez Primary DI E [place] [id number] OLD Insurance:CINTHYA BURGETTDOB: [facility] [id number] Medical Center Number: Repository 06300Hvs: 330 [id number] [phone] () Date:3611-35-85CR [facility] [address] [address]NH: 06/28/2018 Secondary NOT GIVENUNK [place] Insurance:SELF PAY [facility] Number: Effective Repository Date:2018-06-21 06/28/2018 GERALDO Cortez Primary DI E [place] [id number] OLD Insurance:CINTHYA BURGETTDOB: [facility] [id number] Medical Center Number: Repository 24720Ilp: 330 [id number] [phone] () Date:8936-76-95OU [facility] [address] [place] [address]OA: 06/28/2018 Secondary NOT GIVENUNK [place] Insurance:SELF PAY [facility] Number: Effective Repository Date:2018-06-28 06/25/2018 GERALDO Cortez Primary DI E [place] [id number] OLD Insurance:CINTHYA BURGETTDOB: [facility] [id number] Medical Center Number: Repository 80364Len: 330 [id number] [phone] () Date:9860-80-95KL [facility] [address] [address]MR: 06/25/2018 Secondary NOT GIVENUNK [place] Insurance:SELF PAY [facility] Number: Effective Repository Date:2018-06-21 06/21/2018 GERALDO Cortez Primary DI E [place] [id number] OLD Insurance:CINTHYA BURGETTDOB: [facility] [id number] Medical Center Number: Repository 32897Byt: 330 [id number] [phone] () Date:6392-85-64BM [facility] [address] [address]FR: 06/21/2018 Secondary NOT GIVENUNK [place] Insurance:SELF PAY [facility] Number: Effective Repository Date:2018-06-14 06/20/2018 GERALDO Cortez Primary DI E [place] [id number] OLD Insurance:CINTHYA BURGETTDOB: [facility] [id number] Medical Center Number: Repository 25233Jtn: 330 [id number] [phone] (HP) Date:0293-45-89MN [facility] [address] [place] [address]LP: 06/20/2018 Secondary NOT GIVENUNK [place] Insurance:SELF PAY [facility] Number: Effective Repository Date:2018-05-26 06/18/2018 GERALDO Cortez Primary DI E [place] [id number] OLD Insurance:CINTHYA BURGETTDOB: [facility] 1959-26-76PCQCanby Medical Center Number: Repository 45736Kjv: 330 [id number] [phone] () Date:6526-36-15GE [facility] [address] [place] [address]KI: 06/18/2018 Secondary NOT GIVENUNK [place] Insurance:SELF PAY [facility] Number: Effective Repository Date:2018-06-14 06/14/2018 GERALDO Cortez Primary DI E [place] [id number] OLD Insurance:CINTHYA BURGETTDOB: [facility] [id number] Medical Center Number: Repository 85191Eyr: 330 [id number] [phone] () Date:4785-15-38FB [facility] [address] [address]BM: 06/14/2018 Secondary NOT GIVENUNK [place] Insurance:SELF PAY [facility] Number: Effective Repository Date:2018-06-07 06/11/2018 GERALDO Cortez Primary DI E [place] [id number] OLD Insurance:CINTHYA BURGETTDOB: [facility] [id number] Medical Center Number: Repository 67290Ynd: 330 [id number] [phone] (HP) Date:3036-87-56TS [facility] [address] [address]DL: 06/11/2018 Secondary NOT GIVENUNK [place] Insurance:SELF PAY [facility] Number: Effective Repository Date:2018-06-06 06/07/2018 GERALDO Cortez Primary DI E [place] [id number] OLD Insurance:CINTHYA BURGETTDOB: [facility] [id number] Medical Center Number: Repository 07097Ivi: 330 [id number] [phone] () Date:5300-14-15KL [facility] [address] [address]NC: 06/07/2018 Secondary NOT GIVENUNK [place] Insurance:SELF PAY [facility] Number: Effective Repository Date:2018-06-06 06/04/2018 GERALDO Cortez Primary DI E [place] [id number] OLD Insurance:CINTHYA BURGETTDOB: [facility] [id number] Medical Center Number: Repository 00597Wrn: 330 [id number] [phone] () Date:1654-46-79BQ [facility] [address] [address]GW: 06/04/2018 Secondary NOT GIVENUNK [place] Insurance:SELF PAY [facility] Number: Effective Repository Date:2018-06-04 06/01/2018 GERALDO Cortez Primary DI E [place] [id number] OLD Insurance:CINTHYA BURGETTDOB: [facility] [id number] Medical Center Number: Repository 10501Jwc: 330 [id number] [phone] () Date:1571-98-28QA [facility] [address] [address]SZ: 06/01/2018 Secondary NOT GIVENUNK [place] Insurance:SELF PAY [facility] Number: Effective Repository Date:2018-05-17 05/31/2018 GERALDO Cortez Primary DI E [place] [id number] OLD Insurance:CINTHYA BURGETTDOB: [facility] 0587-09-06YSRCanby Medical Center Number: Repository 05010Mgw: 330 [id number] [phone] (HP) Date:6358-69-41FN [address] [place] [address]PH: 05/31/2018 Secondary NOT GIVENUNK [place] Insurance:SELF PAY [facility] Number: Effective Repository Date:2018-05-24 05/29/2018 GERALDO R Primary DI E [place] [id number] OLD Insurance:CINTHYA BURGETTDOB: [facility] 0012-18-44ZUNCanby Medical Center Number: Repository 68239Sgn: 330 [id number] [phone] (HP) Date:8212-03-51BQ [facility] [address] [address]GT: 05/29/2018 Secondary NOT GIVENUNK [place] Insurance:SELF PAY [facility] Number: Effective Repository Date:2018-05-24 05/24/2018 GERALDO R Primary DI E [place] [id number] OLD Insurance:CINTHYA BURGETTDOB: [facility] [id number] Medical Center Number: Repository 03594Vsa: 330 [id number] [phone] (HP) Date:8278-87-00ZW [facility] [address] [address]NG: 05/24/2018 Secondary NOT GIVENUNK [place] Insurance:SELF PAY [facility] Number: Effective Repository Date:2018-05-17 05/23/2018 GERALDO R Primary DI E [place] [id number] OLD Insurance:CINTHYA BURGETTDOB: [facility] [id number] Medical Center Number: Repository 35839Mij: 330 [id number] [phone] (HP) Date:6326-03-12LP [facility] [address] [place] [address]YI: 05/23/2018 Secondary NOT GIVENUNK [place] Insurance:SELF PAY [facility] Number: Effective Repository Date:2018-04-25 05/23/2018 GERALDO Cortez Primary DI E [place] [id number] OLD Insurance:CINTHYA BURGETTDOB: [facility] [id number] Medical Center Number: Repository 45034Uxv: 330 [id number] [phone] () Date:8208-63-01CW [facility] [address] [address]QM: 05/23/2018 Secondary NOT GIVENUNK [place] Insurance:SELF PAY [facility] Number: Effective Repository Date:2018-05-23 05/21/2018 GERALDO Cortez Primary DI E [place] [id number] OLD Insurance:CINTHYA BURGETTDOB: [facility] 1419-14-48NLOCanby Medical Center Number: Repository 35521Fsk: 330 [id number] [phone] () Date:8714-51-47ZD [facility] [address] [address]JE: 05/21/2018 Secondary NOT GIVENUNK [place] Insurance:SELF PAY [facility] Number: Effective Repository Date:2018-05-17 05/17/2018 GERALDO Cortez Primary DI E [place] [id number] OLD Insurance:CINTHYA BURGETTDOB: [facility] [id number] Medical Center Number: Repository 33402Xfh: 330 [id number] [phone] () Date:4606-45-33PG [facility] [address] [address]BQ: 05/17/2018 Secondary NOT GIVENUNK [place] Insurance:SELF PAY [facility] Number: Effective Repository Date:2018-05-10 05/14/2018 GERALDO Cortez Primary DI E [place] [id number] OLD Insurance:CINTHYA BURGETTDOB: [facility] [id number] Medical Center Number: Repository 01641Mhv: 330 [id number] [phone] (HP) Date:4133-10-03IA [facility] [address] [address]ZM: 05/14/2018 Secondary NOT GIVENUNK [place] Insurance:SELF PAY [facility] Number: Effective Repository Date:2018-05-10 05/10/2018 GERALDO Cortez Primary DI E [place] [id number] OLD Insurance:CINTHYA BURPRAVEENTDOB: [facility] [id number] Medical Center Number: Repository 18088Eyn: 330 [id number] [phone] (HP) Date:7111-25-59VR [facility] [address] [address]DM: 05/10/2018 Secondary NOT GIVENUNK [place] Insurance:SELF PAY [facility] Number: Effective Repository Date:2018-05-09 05/07/2018 GERALDO R Primary DI E [place] [id number] OLD Insurance:CINTHYA VICTOR MTDOB: [facility] [id number] Medical Center Number: Repository 72043Glq: 330 [id number] [phone] (HP) Date:0196-16-29YX [facility] [address] [address]WF: 05/07/2018 Secondary NOT GIVENUNK [place] Insurance:SELF PAY [facility] Number: Effective Repository Date:2018-05-04 05/03/2018 GERALDO R Primary DI E [place] [id number] OLD Insurance:CINTHYA BURPRAVEENTDOB: [facility] [id number] Medical Center Number: Repository 78593Wfu: 330 [id number] [phone] (HP) Date:2246-32-28RT [facility] [address] [address]EA: 05/03/2018 Secondary NOT GIVENUNK [place] Insurance:SELF PAY [facility] Number: Effective Repository Date:2018-04-26 05/02/2018 GERALDO Cortez Primary DI E [place] [id number] OLD Insurance:CINTHYA BURGETTDOB: [facility] [id number] Medical Center Number: Repository 99012Son: 330 [id number] [phone] () Date:7200-91-83AF [facility] [address] [address]JQ: 05/02/2018 Secondary NOT GIVENUNK [place] Insurance:SELF PAY [facility] Number: Effective Repository Date:2018-04-25 05/01/2018 GERALDO Cortez Primary DI E [place] [id number] OLD Insurance:CINTHYA BURGETTDOB: [facility] [id number] Medical Center Number: Repository [id number]: 330 [id number] [phone] () Date:7068-90-72DR [facility] [address] [address]NJ: 05/01/2018 Secondary NOT GIVENUNK [place] Insurance:SELF PAY [facility] Number: Effective Repository Date:2018-05-01 04/30/2018 GERALDO Cortez Primary DI E [place] [id number] OLD Insurance:CINTHYA BURGETTDOB: [facility] 1933-16-76GEWCanby Medical Center Number: Repository 96660Bhy: 330 [id number] [phone] () Date:7580-82-34NU [facility] [address] [address]OR: 04/30/2018 Secondary NOT GIVENUNK [place] Insurance:SELF PAY [facility] Number: Effective Repository Date:2018-04-26 04/26/2018 GERALDO Cortez Primary DI E [place] [id number] OLD Insurance:CINTHYA BURGETTDOB: [facility] [id number] Medical Center Number: Repository 78609Lan: 330 [id number] [phone] () Date:7043-31-66YF [facility] [address] [place] [address]YV: 04/26/2018 Secondary NOT GIVENUNK [place] Insurance:SELF PAY [facility] Number: Effective Repository Date:2018-04-19 04/23/2018 GERALDO Cortez Primary DI E [place] [id number] OLD Insurance:CINTHYA BURGETTDOB: [facility] [id number] Medical Center Number: Repository 47886Oet: 330 [id number] [phone] () Date:9341-55-12UW [address] [address]ID: 04/23/2018 Secondary NOT GIVENUNK [place] Insurance:SELF PAY [facility] Number: Effective Repository Date:2018-04-19 04/19/2018 GERALDO Cortez Primary DI E [place] [id number] OLD Insurance:CINTHYA BURGETTDOB: [facility] [id number] Medical Center Number: Repository 64074Tjp: 330 [id number] [phone] () Date:3354-09-83TA [address] [address]TC: 04/19/2018 Secondary NOT GIVENUNK [place] Insurance:SELF PAY [facility] Number: Effective Repository Date:2018-04-04 04/18/2018 GERALDO Cortez Primary DI E [place] [id number] OLD Insurance:CINTHYA BURGETTDOB: [facility] [id number] Medical Center Number: Repository 32891Mfv: 330 [id number] [phone] () Date:3929-58-16ZI [address] [address]FT: 04/18/2018 Secondary NOT GIVENUNK [place] Insurance:SELF PAY [facility] Number: Effective Repository Date:2018-03-25 04/16/2018 GERALDO Cortez Primary DI E [place] [id number] OLD Insurance:CINTHYA BURGETTDOB: [facility] [id number] Medical Center– [facility] Number: Repository 25540Uye: 330 [id number] [phone] () Date:6462-00-04FV [facility] [address] [address]HO: 04/16/2018 Secondary NOT GIVENUNK [place] Insurance:SELF PAY [facility] Number: Effective Repository Date:2018-04-04 04/12/2018 GERALDO Cortez Primary DI E [place] [id number] OLD Insurance:CINTHYA BURGETTDOB: [facility] [id number] Medical Center– [place] Number: Repository 73486Tax: 330 [id number] [phone] () Date:8801-54-98TO [facility] [address] [address]GB: 04/12/2018 Secondary NOT GIVENUNK [place] Insurance:SELF PAY [facility] Number: Effective Repository Date:2018-04-04 04/12/2018 GERALDO Cortez Primary [place] [id number] OLD Insurance:CINTHYA BURGETTDOB: [facility] [id number] Medical Center– [place] Number: Repository 06748Hlo: 330 [id number] [phone] () Date:9698-21-13AO [address] [address]TC: 04/12/2018 Secondary NOT GIVENUNK [place] Insurance:SELF PAY [facility] Number: Effective Repository Date:2018-04-12 04/11/2018 Geraldo Cortez Primary DI E [place] [id number] OLD Insurance:CINTHYA BURGETTDOB: [facility] [id number] Medical Center Number: Repository 25015Goc: 330 [id number] [phone] () Date:3176-48-00BD [facility] [address] [place] [address]XU: 04/11/2018 Secondary NOT GIVENUNK [place] Insurance:SELF PAY [facility] Number: Effective Repository Date:2018-03-25 04/10/2018 Geraldo Cortez Primary DI E [place] [id number] OLD Insurance:ICNTHYA BURGETTDOB: [facility] [id number] Medical Center Number: Repository 61319Yzo: 330 [id number] [phone] () Date:7631-52-14HD [facility] [address] [address]MY: 04/10/2018 Secondary NOT GIVENUNK [place] Insurance:SELF PAY [facility] Number: Effective Repository Date:2018-04-09 04/10/2018 Geraldo Cortez Primary DI E [place] [id number] OLD Insurance:CINTHYA BURGETTDOB: [facility] [id number] Medical Center Number: Repository 25208Nym: 330 [id number] [phone] () Date:5995-42-49SN [facility] [address] [address]ZS: 04/10/2018 Secondary NOT GIVENUNK [place] Insurance:SELF PAY [facility] Number: Effective Repository Date:2018-04-10 04/09/2018 Geraldo Cortez Primary [place] [facility] [place] [id number] OLD Insurance:CINTHYA BURGETTDOB: [facility] [id number] Medical Center Number: Repository [id number]: (221) [id number] [phone] (HP) Date:0713-40-26GG [address] [address]XE: 04/09/2018 Secondary NOT GIVENUNK [place] Insurance:SELF PAY [facility] Number: Effective Repository Date:2018-04-04 04/08/2018 Geraldo Cortez Primary [place] [id number] OLD Insurance:CINTHYA BURGETTDOB: [facility] [id number] Medical Center Number: Repository 63710Hfi: 330 [id number] [phone] (HP) Date:9656-82-06RO [address] [place] [address]HF: 04/08/2018 Secondary NOT GIVENUNK [place] Insurance:SELF PAY [facility] Number: Effective Repository Date:2018-04-08 04/04/2018 Geraldo Cortez Primary DI E [place] [id number] OLD Insurance:CINTHYA BURGETTDOB: [facility] [id number] Medical Center Number: Repository 15239Wcb: 330 [id number] [phone] () Date:6866-07-71QG [address] [address]CT: 04/04/2018 Secondary NOT GIVENUNK [place] Insurance:SELF PAY [facility] Number: Effective Repository Date:2018-04-04 03/29/2018 Geraldo Cortez Primary DI E [place] [id number] OLD Insurance:CINTHYA BURGETTDOB: [facility] [id number] [facility]: Repository [id number]: 330 [id number] [phone] () Date:5561-29-96VE [address] [address]EK: 03/29/2018 Secondary NOT GIVENUNK [place] Insurance:SELF PAY [facility] Number: Effective Repository Date:2018-03-22 03/26/2018 Geraldo Cortze Primary DI E [place] [id number] OLD Insurance:CINTHYA BURGETTDOB: [facility] [id number] Medical Center Number: Repository 29607Rbr: 330 [id number] [phone] () Date:9615-25-44XL [facility] [address] [address]HH: 03/26/2018 Secondary NOT GIVENUNK [place] Insurance:SELF PAY [facility] Number: Effective Repository Date:2018-03-26 03/22/2018 Geraldo Cortez Primary DI E [place] [id number] OLD Insurance:CINTHYA BURGETTDOB: [facility] [id number] Medical Center Number: Repository 86182Xyn: 330 [id number] [phone] () Date:3251-92-34EP [address] [address]AX: 03/22/2018 Secondary NOT GIVENUNK [place] Insurance:SELF PAY [facility] Number: Effective Repository Date:2018-03-14 03/21/2018 Geraldo Cortez Primary DI E [place] [id number] OLD Insurance:CINTHYA BURGETTDOB: [facility] [id number] Medical Center Number: Repository [address]35Ovs: 330 [id number] [phone] () Date:0259-90-76FW [address] [address]HY: 03/21/2018 Secondary NOT GIVENUNK [place] Insurance:SELF PAY [facility] Number: Effective Repository Date:2018-02-23 03/14/2018 Geraldo Cortez Primary DI E [place] [id number] OLD Insurance:CINTHYA BURGETTDOB: [facility] [id number] Medical Center Number: Repository 11958Phz: 330 [id number] [phone] (HP) Date:5412-22-18KU [address] [place] [address]SV: 03/14/2018 Secondary NOT GIVENUNK [place] Insurance:SELF PAY [facility] Number: Effective Repository Date:2018-03-07 03/07/2018 Geraldo R Primary DI E [place] [id number] Old Insurance:CINTHYA BURGETTDOB: [facility] [id number]. John's Hospital Number: Repository [id number]: 330 [id number] [phone] (HP) Date:5634-50-17YN [facility] [address] [place] [address]HF: 03/07/2018 Secondary NOT GIVENUNK [place] Insurance:SELF PAY [facility] Number: Effective Repository Date:2018-03-06 03/05/2018 Geraldo R Primary DI E [place] [id number] Old Insurance:CINTHYA BURGETTDOB: [facility] [id number]. John's Hospital Number: Repository 6[address]27Cdt: 330 [id number] [phone] (HP) Date:0234-08-11YL [facility] [address] [address]UY: 03/05/2018 Secondary NOT GIVENUNK [place] Insurance:SELF PAY [facility] Number: Effective Repository Date:2018-03-05 02/28/2018 Geraldo R Primary DI E [place] [id number] Old Insurance:CINTHYA BURGETTDOB: [facility] [id number]. John's Hospital Number: Repository 92362Maw: 330 [id number] [phone] (HP) Date:8873-67-63XY [facility] [address] [address]VA: 02/28/2018 Secondary NOT GIVENUNK [place] Insurance:SELF PAY [facility] Number: Effective Repository Date:2018-02-23 02/22/2018 Geraldo Cortez Primary DI E [place] [id number] Old Insurance:CINTHYA BURGETTDOB: [facility] [id number]. John's Hospital Number: Repository 34910Giz: 330 [id number] [phone] () Date:1450-26-25WJ [facility] [address] [address]TD: 02/22/2018 Secondary NOT GIVENUNK [place] Insurance:SELF PAY [facility] Number: Effective Repository Date:2017-11-27 02/21/2018 Geraldo Cortez Primary DI E [place] [id number] Old Insurance:CINTHYA BURGETTDOB: [facility] [id number]. John's Hospital Number: Repository 33340Iug: 330 [id number] [phone] () Date:7238-04-66NN [facility] [address] [address]IV: 02/21/2018 Secondary NOT GIVENUNK [place] Insurance:SELF PAY [facility] Number: Effective Repository Date:2018-01-23 02/09/2018 Geraldo Cortez Primary DI E [place] [id number] Old Insurance:CINTHYA BURGETTDOB: [facility] [id number]. John's Hospital Number: Repository [id number]: 330 [id number] [phone] () Date:2959-67-86XM [facility] [address] [address]NV: 02/09/2018 Secondary NOT GIVENUNK [place] Insurance:SELF PAY [facility] Number: Effective Repository Date:2018-02-09 02/01/2018 Geraldo Cortez Primary DI E [place] [id number] Old Insurance:CINTHYA BURGETTDOB: [facility] [id number] Grande HospitalOPolalegent health [facility] Number: Repository [id number]: 330 [id number] [phone] (HP) Date:6683-26-61SE [facility] [address] [place] [address]YA: 02/01/2018 Secondary NOT GIVENUNK [place] Insurance:SELF PAY [facility] Number: Effective Repository Date:2018-01-24 01/31/2018 Geraldo Cortez Primary DI E [place] [id number] Old Insurance:CINTHYA BURGETTDOB: [facility] [id number]. John's Hospital Number: Repository [id number]: (330 [id number] [phone] (HP) Date:9431-68-85JR [facility] [address] [address]ZF: 01/31/2018 Secondary NOT GIVENUNK [place] Insurance:SELF PAY [facility] Number: Effective Repository Date:2018-01-31 01/17/2018 Geraldo Cortez Primary DI E [place] [id number] Old Insurance:CINTHYA BURGETTDOB: [facility] [id number]. John's Hospital Number: Repository 42812Ale: 330 [id number] [phone] (HP) Date:6847-74-95FU [facility] [address] [place] [address]KN: 01/17/2018 Secondary NOT GIVENUNK [place] Insurance:SELF PAY [facility] Number: Effective Repository Date:2017-12-24 12/26/2017 Geraldo Cortez Primary DI E [place] [id number] Old Insurance:CINTHYA BURGETTDOB: [facility] [id number]. John's Hospital Number: Repository 17496Fyu: 330 [id number] [phone] (HP) Date:6607-39-90LG [facility] [address] [place] [address]XV: 12/26/2017 Secondary NOT GIVENUNK [place] Insurance:SELF PAY [facility] Number: Effective Repository Date:2017-12-26 12/25/2017 Geraldo Cortez Primary DI E [place] [id number] Old Insurance:CINTHYA BURGETTDOB: [facility] [id number]. John's Hospital Number: Repository 57628Lkm: 330 [id number] [phone] () Date:5819-83-76WJ [address] [address]CK: 12/25/2017 Secondary NOT GIVENUNK [place] Insurance:SELF PAY [facility] Number: Effective Repository Date:2017-12-25 12/19/2017 Geraldo Cortez Primary DI E [place] [id number] Old Insurance:CINTHYA BURGETTDOB: [facility] [id number]. John's Hospital Number: Repository 35869Odb: 330 [id number] [phone] () Date:5383-74-69KT [facility] [address] [place] [address]WO: 12/19/2017 Secondary NOT GIVENUNK [place] Insurance:SELF PAY [facility] Number: Effective Repository Date:2017-12-19 12/12/2017 Geraldo Cortez Primary DI E [place] [id number] Old Insurance:CINTHYA BURGETTDOB: [facility] [id number]. John's Hospital Number: Repository 13019Zbb: 330 [id number] [phone] () Date:3449-81-19NN [address] [address]FH: 12/12/2017 Secondary NOT GIVENUNK [place] Insurance:SELF PAY [facility] Number: Effective Repository Date:2017-12-12 12/11/2017 Geraldo Cortez Primary DI E [place] [id number] Old Insurance:CINTHYA BURGETTDOB: [facility] [id number]. John's Hospital Number: Repository 02428Dbm: 330 [id number] [phone] () Date:6439-69-90GR [facility] [address] [address]HE: 12/11/2017 Secondary NOT GIVENUNK [place] Insurance:SELF PAY [facility] Number: Effective Repository Date:2017-12-11 12/07/2017 Geraldo Cortez Primary DI E [place] [id number] Old Insurance:CINTHYA BURGETTDOB: [facility] [id number]. John's Hospital Number: Repository 37621Lje: 330 [id number] [phone] () Date:8706-25-65VX [facility] [address] [place] [address]CG: 12/07/2017 Secondary NOT GIVENUNK [place] Insurance:SELF PAY [facility] Number: Effective Repository Date:2017-12-07 12/07/2017 Geraldo Cortez Primary DI E [place] [id number] Old Insurance:CINTHYA BURGETTDOB: [facility] [id number]. John's Hospital Number: Repository 87871Ler: 330 [id number] [phone] () Date:1331-20-82NM [facility] [address] [place] [address]OA: 12/07/2017 Secondary NOT GIVENUNK [place] Insurance:SELF PAY [facility] Number: Effective Repository Date:2017-12-07 12/07/2017 Geraldo Cortez Primary DI E [place] [id number] Old Insurance:CINTHYA BURGETTDOB: [facility] [id number]. John's Hospital Number: Repository 92264Ngo: 330 [id number] [phone] (HP) Date:8123-57-99VY [address] [address]SU: 12/07/2017 Secondary NOT GIVENUNK [place] Insurance:SELF PAY [facility] Number: Effective Repository Date:2017-12-07 12/07/2017 Geraldo Cortez Primary DI E [place] [id number] Old Insurance:CINTHYA BURGETTDOB: [facility] [id number]. John's Hospital Number: Repository 74059Cyn: 330 [id number] [phone] (HP) Date:3745-91-71EK [address] [address]YT: 12/07/2017 Secondary NOT GIVENUNK [place] Insurance:SELF PAY [facility] Number: Effective Repository Date:2017-12-07 12/07/2017 Geraldo Cortez Primary DI E [place] [id number] Old Insurance:CINTHYA BURGETTDOB: [facility] [id number]. John's Hospital Number: Repository 82752Pqo: 330 [id number] [phone] (HP) Date:2026-67-03TQ [facility] [address] [address]SI: 12/07/2017 Secondary NOT GIVENUNK [place] Insurance:SELF PAY [facility] Number: Effective Repository Date:2017-12-07 12/07/2017 Geraldo Cortez Primary DI E [place] [id number] Old Insurance:CINTHYA BURGETTDOB: [facility] [id number]. John's Hospital Number: Repository 91411Koi: 330 [id number] [phone] (HP) Date:7996-95-28OA [facility] [address] [address]FR: 12/07/2017 Secondary NOT GIVENUNK [place] Insurance:SELF PAY [facility] Number: Effective Repository Date:2017-12-07 12/07/2017 Geraldo Cortez Primary DI E [place] [id number] Old Insurance:CINTHYA BURGETTDOB: [facility] 1959-05-77VTTSt. John's Hospital Number: Repository 17030Jzu: 330 [id number] [phone] () Date:5564-19-06DH [facility] [address] [address]DJ: 12/07/2017 Secondary NOT GIVENUNK [place] Insurance:SELF PAY [facility] Number: Effective Repository Date:2017-12-07 12/07/2017 Geraldo Cortez Primary DI E [place] [id number] Old Insurance:CINTHYA BURGETTDOB: [facility] [id number]. John's Hospital Number: Repository 54393Vcq: 330 [id number] [phone] () Date:5452-34-47TR [facility] [address] [address]MJ: 12/07/2017 Secondary NOT GIVENUNK [place] Insurance:SELF PAY [facility] Number: Effective Repository Date:2017-12-07 12/07/2017 Geraldo Cortez Primary DI E [place] [id number] Old Insurance:CINTHYA BURGETTDOB: [facility] [id number]. John's Hospital Number: Repository 95212Fzb: 330 [id number] [phone] () Date:2098-92-66AR [facility] [address] [address]HT: 12/07/2017 Secondary NOT GIVENUNK [place] Insurance:SELF PAY [facility] Number: Effective Repository Date:2017-12-07 12/07/2017 Geraldo Cortez Primary DI E [place] [id number] Old Insurance:CINTHYA BURGETTDOB: [facility] [id number]. John's Hospital Number: Repository 41699Vfp: 330 [id number] [phone] (HP) Date:1470-70-15WQ [address] [address]VA: 12/07/2017 Secondary NOT GIVENUNK [place] Insurance:SELF PAY [facility] Number: Effective Repository Date:2017-12-07 12/07/2017 Geraldo Cortez Primary DI E [place] [id number] Old Insurance:CINTHYA BURGETTDOB: [facility] [id number]. John's Hospital Number: Repository 42742Aoc: 330 [id number] [phone] (HP) Date:8090-89-97QV [address] [address]WF: 12/07/2017 Secondary NOT GIVENUNK [place] Insurance:SELF PAY [facility] Number: Effective Repository Date:2017-12-07 12/07/2017 Geraldo R Primary DI E [place] [id number] Old Insurance:CINTHYA BURGETTDOB: [facility] [id number]. John's Hospital Number: Repository 00673Woc: 330 [id number] [phone] () Date:1328-91-94RF [facility] [address] [address]MZ: 12/07/2017 Secondary NOT GIVENUNK [place] Insurance:SELF PAY [facility] Number: Effective Repository Date:2017-12-07 12/06/2017 Geraldo R Primary DI E [place] [id number] Old Insurance:CINTHYA BURGETTDOB: [facility] [id number]. John's Hospital Number: Repository 88704Mcz: 330 [id number] [phone] () Date:1478-40-62OX [address], [place] [address]QT: 12/06/2017 Secondary NOT GIVENUNK [place] Insurance:SELF PAY [facility]: Effective Repository Date:2017-11-23 12/04/2017 Geraldo Cortez Primary DI E [place] [id number] Old Insurance:CINTHYA BURGETTDOB: [facility] [id number]. John's Hospital Number: Repository 18059Opb: 330 [id number] [phone] (HP) Date:4542-09-90LW [facility] [address] [address]JD: 12/04/2017 Secondary NOT GIVENUNK [place] Insurance:SELF PAY [facility] Number: Effective Repository Date:2017-12-04 12/01/2017 Geraldo Cortez Primary DI E [place] [id number] Old Insurance:CINTHYA BURFLUSHING HOS[facility] MEDICAL CENTERTDOB: [facility] [id number]. John's Hospital Number: Repository 79567Bsn: 330 [id number] [phone] (HP) Date:6893-58-05GL [facility] [address] [address]BB: 12/01/2017 Secondary NOT GIVENUNK [place] Insurance:SELF PAY [facility] Number: Effective Repository Date:2017-12-01 11/29/2017 Geraldo Cortez Primary DI E [place] [id number] Old Insurance:CINTHYA BURFLUSHING HOSP[facility] MEDICAL CENTERTDOB: [facility] [id number]. John's Hospital Number: Repository 67406Qry: 330 [id number] [phone] (HP) Date:8322-83-70NL [address] [address]IJ: 11/29/2017 Secondary NOT GIVENUNK [place] Insurance:SELF PAY [facility] Number: Effective Repository Date:2017-11-29 11/22/2017 DI E Primary DI E [place] [id number] OLD Insurance:CINTHYA BURGETTDOB: [facility] [id number] Medical [facility] Number: Repository 92041Ypx: 330 [id number] [phone] (HP) Date:2703-30-30QD [address] [place] [address]IG: 11/22/2017 Secondary NOT GIVENUNK [place] Insurance:SELF PAY [facility] Number: Effective Repository Date:2017-10-26 11/18/2017 Geraldo R Primary ID E [place] [id number] Old Insurance:CINTHYA BURGETTDOB: [facility] [id number]. John's Hospital Number: Repository 01901Bfa: 330 [id number] [phone] (HP) Date:3704-95-17IY [address] [place] [address]XT: 11/18/2017 Secondary NOT GIVENUNK [place] Insurance:SELF PAY [facility] Number: Effective Repository Date:2017-11-18 11/17/2017 DI E Primary DI E [place] [id number] OLD Insurance:CINTHYA BURGETTDOB: [facility] [id number] Medical Center Number: Repository 15907Zul: 330 [id number] [phone] () Date:6356-47-53UN [address] [address]FW: 11/17/2017 Secondary NOT GIVENUNK [place] Insurance:SELF PAY [facility] Number: Effective Repository Date:2017-10-19 11/13/2017 DI E Primary DI E [place] [id number] OLD Insurance:CINTHYA BURGETTDOB: [facility] [id number] Medical Center Number: Repository 86711Ldg: 330 [id number] [phone] (HP) Date:3530-10-60NQ [address] [address]TE: 11/13/2017 Secondary NOT GIVENUNK [place] Insurance:SELF PAY [facility] Number: Effective Repository Date:2017-10-27 10/25/2017 Geraldo R Primary DI E [place] [id number] Old Insurance:CINTHYA BURGETTDOB: [facility] [id number]. John's Hospital Number: Repository 56367Omk: 330 [id number] [phone] () Date:8936-56-24XX [facility] [address] [place] [address]PS: 10/25/2017 Secondary NOT GIVENUNK [place] Insurance:SELF PAY [facility] Number: Effective Repository Date:2017-09-25 10/18/2017 DI E Primary DI E [place] [id number] OLD Insurance:CINTHYA BURGETTDOB: [facility] [id number] Medical Center Number: Repository 76498Abu: 330 [id number] [phone] () Date:6565-24-89YE [facility] [address] [address]CU: 10/18/2017 Secondary NOT GIVENUNK [place] Insurance:SELF PAY [facility] Number: Effective Repository Date:2017-09-14 10/18/2017 Di E Primary Di E [place] [id number] Old Insurance:CINTHYA VeegettDOB: [facility] [id number]. John's Hospital Number: Repository 99935Hhn: 330 [id number] [phone] () Date:6257-33-79UF [facility] [address] [address]TF: 10/18/2017 Secondary NOT GIVENUNK [place] Insurance:SELF PAY [facility] Number: Effective Repository Date:2017-09-02 10/11/2017 DI E Primary DI E [place] [id number] OLD Insurance:CINTHYA BURGETTDOB: [facility] [id number] HospitalNazariorange, [place] HMOPolicy Number: Repository [id number]: (741) [id number] [phone] () Date:7478-93-33KD [address], [place] [address]XV: 10/11/2017 Secondary NOT GIVENUNK [place] Insurance:SELF PAY [facility]: Effective Repository Date:2017-10-11
== END ==
PROVIDERS: Family Provider Internal Medicine; PCP Internal Medicine; Referring Provider Internal Medicine Nephrology; Visit Provider Internal Medicine Nephrology
DX: N17.9 Acute kidney failure, unspecified (principal)
CPT/HCPCS: 36415; 80069; 82652

== ENCOUNTER 2018-09-19 09:30 | Outpatient (RCR) | payer MEDICARE, SELFPAY ==
[2018-08-25 00:47] VITALS: BP 113/68; PULSE 80; RESP 16; TEMP 36.2
[2018-08-29 09:22] VITALS: BP 137/77; PULSE 89; RESP 16; TEMP 35.9; BMI 35.4
--- NOTE | 2018-08-29 11:04 | PCM.WC.PN ---
(1) Ulcer of right lower extremity with fat layer exposed Status: Chronic Code(s): L97.912 - Non-pressure chronic ulcer of unspecified part of right lower leg with fat layer exposed (2) Venous insufficiency (chronic) (peripheral) Status: Chronic Code(s): I87.2 - Venous insufficiency (chronic) (peripheral) (3) Calciphylaxis Status: Chronic Code(s): E83.59 - Other disorders of calcium metabolism Type of Wound Date of Service: 08/29/18 Chief Complaint: Ulcers right leg History of Wound: Di is a 72 year old female that returns for follow up of bilateral leg ulcers. She had several theraskin and Apligraf applications applied in the clinical setting. She had a previous versa jet debridement with serial amnio fill, advanced wound care product, application in the operating room this past week. She denies pain, fever, chill, nausea, vomiting. She has been compliant with every other day Lacey applications this past week the left leg and has left the right Apligraf intact. She denies recent illness. She has been treated medically for calciphylaxis. Progress of Wound: Improving right leg. Healed left leg - Physical Exam Vital Signs Temp Pulse Resp BP 96.6 F L 89 16 137/77 H 08/29/18 09:22 12 09:22 12 09:22 12 09:22 General: Alert, Oriented x3, Cooperative Extremities: No cyanosis, Capillary Refill Less than 3 Seconds, No Calf Tenderness - Negative Kimberly and Layton sign bilateral, Diminished Peripheral Pulses, Edema - Mild bilateral Skin: Ulcer/ Wound - No purulence, erythema, streaking, odor, or infection bilateral. Full epithelialization is maintained to left lower extremity. Bilateral lower extremity skin is hairless and atrophic. Wound Measurements and Assessment WC - Nurse 1 - General Ulcer Measurement Start: 08/29/18 09:22 Freq: Status: Active Protocol: Activity Type Activity Date Activity User E-Sign Co-Sign Detail Recorded Client Recorded Date Recorded By Document 08/29/18 09:22 MW [id number] 08/29/18 09:41 MW 08/29/18 09:22 Wound Center Nurse 1 [Ulcer Assessment] #8 RIGHT POSTERIOR CALF -Combined with other wound No -Current Size (cm) - Length 9.5 -Current Size (cm) - Width 1.5 -Current Size (cm) - Depth 0.1 -Total Square Cm 14.25 -Photo Taken No -Epithelialization Small 1-33% -Tunneling No -Undermining/Tunneling No -Circular Undermining No -Exudate Amt None Present (0 %) -Wound Margin Flat & Intact -Granulation Amt None Present (0 %) -Granulation Quality N/A -Slough/Fibrin Yes -Necrosis Amt Large (67-100%) -Necrotic Tissue Type Adherent Slough -Structure Exposed N/A -Texture (Gabriella-wound Skin Appearance) Assessed Localized Edema Scarring -Moisture (Gabriella-wound Skin Appearance Assessed ) Dry/Scaly -Color (Gabriella-wound Skin Appearance) Assessed Hemosiderin Staining -Temperature (Gabriella-wound Skin No Abnormality Appearance) (Pt Warm) -Tenderness on Palpation (Gabriella-wound No Skin Appearance) -Ulcer Cleansing Rinsed/ Irrigated with Saline -Foul Odor after Cleansing No -Anesthetic Used 4% Lidocaine Solution #5 RIGHT MEDIAL CALF -Combined with other wound No -Current Size (cm) - Length 1.4 -Current Size (cm) - Width 2.5 -Current Size (cm) - Depth 0.1 -Total Square Cm 3.50 -Photo Taken No -Epithelialization Small 1-33% -Tunneling No -Undermining/Tunneling No -Circular Undermining No -Exudate Amt None Present (0 %) -Wound Margin Flat & Intact -Granulation Amt None Present (0 %) -Granulation Quality N/A -Slough/Fibrin Yes -Necrosis Amt Large (67-100%) -Necrotic Tissue Type Adherent Slough -Structure Exposed N/A -Texture (Gabriella-wound Skin Appearance) Assessed Localized Edema Scarring -Moisture (Gabriella-wound Skin Appearance Assessed ) Dry/Scaly -Color (Gabriella-wound Skin Appearance) Assessed Hemosiderin Staining -Temperature (Gabriella-wound Skin No Abnormality Appearance) (Pt Warm) -Tenderness on Palpation (Gabriella-wound No Skin Appearance) -Ulcer Cleansing Rinsed/ Irrigated with Saline -Foul Odor after Cleansing No -Anesthetic Used 4% Lidocaine Solution #4 Left LATERAL calf -Combined with other wound No -Current Size (cm) - Length 0 -Current Size (cm) - Width 0 -Current Size (cm) - Depth 0 -Total Square Cm 0 -Epithelialization Large 67-100% -Tunneling No -Undermining/Tunneling No -Circular Undermining No #3 RIGHT POSTERIOR LATERAL LE CLUSTER -Combined with other wound No -Current Size (cm) - Length 3.0 -Current Size (cm) - Width 1.0 -Current Size (cm) - Depth 0.1 -Total Square Cm 3.00 -Photo Taken No -Epithelialization Small 1-33% -Tunneling No -Undermining/Tunneling No -Circular Undermining No -Exudate Amt None Present (0 %) -Wound Margin Flat & Intact -Granulation Amt None Present (0 %) -Granulation Quality N/A -Slough/Fibrin No -Necrosis Amt Large (67-100%) -Necrotic Tissue Type Adherent Slough -Structure Exposed N/A -Texture (Gabriella-wound Skin Appearance) Assessed Localized Edema Scarring -Moisture (Gabriella-wound Skin Appearance Assessed ) Dry/Scaly -Color (Gabriella-wound Skin Appearance) Assessed Hemosiderin Staining -Temperature (Gabriella-wound Skin No Abnormality Appearance) (Pt Warm) -Tenderness on Palpation (Gabriella-wound No Skin Appearance) -Ulcer Cleansing Rinsed/ Irrigated with Saline -Foul Odor after Cleansing No -Anesthetic Used 4% Lidocaine Solution [Edema Assessment] -Lower Limb Edema Present Yes -Right Calf (cm) 32.1 -Right Ankle (cm) 20.4 -Left Calf (cm) 32.0 -Left Ankle (cm) 21.4 WC - Nurse 2 - General Ulcer CM Notes Start: 08/29/18 09:22 Freq: Status: Active Protocol: Activity Type Activity Date Activity User E-Sign Co-Sign Detail Recorded Client Recorded Date Recorded By Document 08/29/18 09:55 [id number] 08/29/18 10:01 08/29/18 09:55 Wound Center Nurse 2 [Procedure/Treatment] #8 RIGHT POSTERIOR CALF -Time 09:55 -Correct Patient Yes -Correct Side, Site, Position Yes -Correct Procedure Yes -Procedure Performed Yes -Type of Procedure Debridement -Clinical Debridement Subcutaneous -Post Debridement Size (cm) - Length 9.6 -Post Debridement Size (cm) - Width 1.6 -Post Debridement Size (cm) - Depth 0.1 -Total Square Cm 15.36 -Wound/Ulcer Outcome Not Healed -Ulcer Cleansing Rinsed/ Irrigated with Saline -Foul Odor after Cleansing No -Bioengineered Tissue Yes -Type of bioengineered Tissue EPIFIX -Expiration Date 04/25/23 -Product Lot Number [id number] -Percent Used 33 -Saline Lot Number [id number] -Topical Lidocaine (%) 4 -Bleeding Controlled with Pressure -Offloading No -Treatment Response Procedure Tolerated Well #5 RIGHT MEDIAL CALF -Time 09:57 -Correct Patient Yes -Correct Side, Site, Position Yes -Correct Procedure Yes -Procedure Performed Yes -Type of Procedure Debridement -Clinical Debridement Subcutaneous -Post Debridement Size (cm) - Length 1.5 -Post Debridement Size (cm) - Width 2.6 -Post Debridement Size (cm) - Depth 0.1 -Total Square Cm 3.90 -Wound/Ulcer Outcome Not Healed -Ulcer Cleansing Rinsed/ Irrigated with Saline -Foul Odor after Cleansing No -Bioengineered Tissue Yes -Type of bioengineered Tissue EPIFIX -Expiration Date 04/25/23 -Product Lot Number [id number] -Percent Used 33 -Saline Lot Number [id number] -Topical Lidocaine (%) 4 -Bleeding Controlled with Pressure -Offloading No -Treatment Response Procedure Tolerated Well #4 Left LATERAL calf -Time 09:58 -Correct Patient Yes -Correct Side, Site, Position Yes -Correct Procedure Yes -Procedure Performed Yes -Post Debridement Size (cm) - Length 0 -Post Debridement Size (cm) - Width 0 -Post Debridement Size (cm) - Depth 0 -Total Square Cm 0 -Wound/Ulcer Outcome Healed- Epithelialized -Ulcer Cleansing Rinsed/ Irrigated with Saline -Foul Odor after Cleansing No -Bioengineered Tissue No -Bleeding Controlled with NA -Treatment Response Procedure Not Tolerated Well #3 RIGHT POSTERIOR LATERAL LE CLUSTER -Time 09:58 -Correct Patient Yes -Correct Side, Site, Position Yes -Correct Procedure Yes -Procedure Performed Yes -Type of Procedure Debridement -Clinical Debridement Subcutaneous -Post Debridement Size (cm) - Length 3.1 -Post Debridement Size (cm) - Width 1.1 -Post Debridement Size (cm) - Depth 0.1 -Total Square Cm 3.41 -Wound/Ulcer Outcome Not Healed -Ulcer Cleansing Rinsed/ Irrigated with Saline -Foul Odor after Cleansing No -Bioengineered Tissue Yes -Type of bioengineered Tissue EPIFIX -Expiration Date 04/25/23 -Product Lot Number [id number] -Percent Used 33 -Saline Lot Number [id number] -Topical Lidocaine (%) 4 -Bleeding Controlled with Pressure -Offloading No -Treatment Response Procedure Tolerated Well [See Physician Procedure note for Specifics] Pain Scale: 0-10 Numeric [Pain] -Is Patient Pain Free? Yes Musculoskeletal: No Tenderness to Palpation of Joints or Extremities, Muscle Wasting Neurological: Sensory exam intact to light touch and pain Psych/Mental Status: Normal Affect, Appropriate Debridement Note Post-Debridement Measurements/Treatment WC - Nurse 2 - General Ulcer CM Notes Start: 08/29/18 09:22 Freq: Status: Active Protocol: Activity Type Activity Date Activity User E-Sign Co-Sign Detail Recorded Client Recorded Date Recorded By Document 08/29/18 09:55 [id number] 08/29/18 10:01 08/29/18 09:55 Wound Center Nurse 2 #8 RIGHT POSTERIOR CALF -Time 09:55 -Correct Patient Yes -Correct Side, Site, Position Yes -Correct Procedure Yes -Procedure Performed Yes -Type of Procedure Debridement -Clinical Debridement Subcutaneous -Post Debridement Size (cm) - Length 9.6 -Post Debridement Size (cm) - Width 1.6 -Post Debridement Size (cm) - Depth 0.1 -Total Square Cm 15.36 -Wound/Ulcer Outcome Not Healed -Ulcer Cleansing Rinsed/ Irrigated with Saline -Foul Odor after Cleansing No -Bioengineered Tissue Yes -Type of bioengineered Tissue EPIFIX -Expiration Date 04/25/23 -Product Lot Number [id number] -Percent Used 33 -Saline Lot Number [id number] -Topical Lidocaine (%) 4 -Bleeding Controlled with Pressure -Offloading No -Treatment Response Procedure Tolerated Well #5 RIGHT MEDIAL CALF -Time 09:57 -Correct Patient Yes -Correct Side, Site, Position Yes -Correct Procedure Yes -Procedure Performed Yes -Type of Procedure Debridement -Clinical Debridement Subcutaneous -Post Debridement Size (cm) - Length 1.5 -Post Debridement Size (cm) - Width 2.6 -Post Debridement Size (cm) - Depth 0.1 -Total Square Cm 3.90 -Wound/Ulcer Outcome Not Healed -Ulcer Cleansing Rinsed/ Irrigated with Saline -Foul Odor after Cleansing No -Bioengineered Tissue Yes -Type of bioengineered Tissue EPIFIX -Expiration Date 04/25/23 -Product Lot Number [id number] -Percent Used 33 -Saline Lot Number [id number] -Topical Lidocaine (%) 4 -Bleeding Controlled with Pressure -Offloading No -Treatment Response Procedure Tolerated Well #4 Left LATERAL calf -Time 09:58 -Correct Patient Yes -Correct Side, Site, Position Yes -Correct Procedure Yes -Procedure Performed Yes -Post Debridement Size (cm) - Length 0 -Post Debridement Size (cm) - Width 0 -Post Debridement Size (cm) - Depth 0 -Total Square Cm 0 -Wound/Ulcer Outcome Healed- Epithelialized -Ulcer Cleansing Rinsed/ Irrigated with Saline -Foul Odor after Cleansing No -Bioengineered Tissue No -Bleeding Controlled with NA -Treatment Response Procedure Not Tolerated Well #3 RIGHT POSTERIOR LATERAL LE CLUSTER -Time 09:58 -Correct Patient Yes -Correct Side, Site, Position Yes -Correct Procedure Yes -Procedure Performed Yes -Type of Procedure Debridement -Clinical Debridement Subcutaneous -Post Debridement Size (cm) - Length 3.1 -Post Debridement Size (cm) - Width 1.1 -Post Debridement Size (cm) - Depth 0.1 -Total Square Cm 3.41 -Wound/Ulcer Outcome Not Healed -Ulcer Cleansing Rinsed/ Irrigated with Saline -Foul Odor after Cleansing No -Bioengineered Tissue Yes -Type of bioengineered Tissue EPIFIX -Expiration Date 04/25/23 -Product Lot Number [id number] -Percent Used 33 -Saline Lot Number [id number] -Topical Lidocaine (%) 4 -Bleeding Controlled with Pressure -Offloading No -Treatment Response Procedure Tolerated Well Pain Scale: 0-10 Numeric Is Patient Pain Free? Yes Wound debrided: posterior leg Laterality: Right Type of Debridement: Excisional debridement Anesthesia Used: 5% Lidocaine Gel Depth: in the subcutaneous layer Percentage of wound debrided: 100 Instrument Used: #15 blade Tissue Removed: fibrous, devitalized subcutaneous, biofilm, slough Severity: Fat Layer Exposed Amount of bleeding with debridement: Mild Bleeding Controlled with: Pressure Patient tolerated procedure well - Additional Wound Wound debrided: posterior lateral leg Laterality: Right Type of Debridement: Excisional debridement Anesthesia Used: 5% Lidocaine Gel Depth: in the subcutaneous layer Percentage of wound debrided: 100 Instrument Used: #15 blade Tissue Removed: fibrous, devitalized subcutaneous, biofilm, slough Severity: Fat Layer Exposed Amount of bleeding with debridement: Mild Bleeding Controlled with: Pressure Patient tolerated procedure: Patient tolerated procedure well - Additional Wound Wound debrided: medial leg Laterality: Right Type of Debridement: Excisional debridement Anesthesia Used: 5% Lidocaine Gel Depth: in the subcutaneous layer Percentage of wound debrided: 100 Instrument Used: #15 blade Tissue Removed: fibrous, devitalized subcutaneous, biofilm, slough Severity: Fat Layer Exposed Amount of bleeding with debridement: Mild Bleeding Controlled with: Pressure Patient tolerated procedure: Patient tolerated procedure well Assessment/Plan Assessment: Right leg ulcers with fat layer exposed, chronic and noninfected. Left leg ulcer healed today. Delayed healing. venous insufficiency. Malnutrition suspected. Lower extremity pain. Multiple comorbidities noted. Calciphylaxis Plan: She was evaluated today and her care plan was discussed. Subcutaneous excisional debridement was performed to the right leg as noted in the clinical panel. Her left leg ulcer sites have completely healed. verbal consent was obtained for advanced wound care product epifix and this was applied to the right leg ulcer sites. She is approved for application of advanced wound care product, epi fix today. The indications plan application and anticipated healing and management were discussed. This was applied according to standard protocol after verbal consent was obtained to the right posterior leg and the left lateral leg. She tolerated this well. To keep clean and dry and intact until follow-up next week. This was secured in place with Steri-Strips and wound veil. Wound veil covered medial right leg ulcer only. I recommend continued serial application of advanced wound care products until full closure was achieved. She had a follow up with Dr. Pelaez for evaluation of her arterial Doppler exam which appeared to have distal perfusion. A biopsy of the leg skin was previously obtained and the results were reviewed today and will be placed in her chart. I reiterated the importance of taking pressure off of these wound sites. She was told by her doctor to stop taking glucerna as it had too much calcium. To only take nutritional supplementation but do not have additional calcium in them. He has completed a course of sodium thiosulfate for treatment of calciphylaxis as prescribed. She will continue on a low-dose prednisone and further calciphylaxis for sarcoidosis workup with her customer service advocate, Dr. Almonte. It is also noted she is going to schedule for a lung biopsy for workup of sarcoidosis nodule versus other mass growth after September. I answered all of her questions. To return to the wound healing center 1 week or call sooner if there are any questions or concerns.
[2018-09-05 10:25] VITALS: BP 138/67; PULSE 84; RESP 16; TEMP 36.2; BMI 35.4
--- NOTE | 2018-09-05 11:23 | PCM.WC.PN ---
(1) Ulcer of right lower extremity with fat layer exposed Status: Chronic Current Visit: Yes Code(s): L97.912 - Non-pressure chronic ulcer of unspecified part of right lower leg with fat layer exposed (2) Venous insufficiency (chronic) (peripheral) Status: Chronic Current Visit: Yes Code(s): I87.2 - Venous insufficiency (chronic) (peripheral) (3) Calciphylaxis Status: Chronic Current Visit: Yes Code(s): E83.59 - Other disorders of calcium metabolism Type of Wound Date of Service: 09/05/18 Chief Complaint: Ulcers right leg History of Wound: Di is a 72 year old female that returns for follow up of bilateral leg ulcers. She had several theraskin and Apligraf applications applied in the clinical setting. She had a previous versa jet debridement with serial amnio fill, advanced wound care product, application in the operating room this past week. She denies pain, fever, chill, nausea, vomiting. She has been treated medically for calciphylaxis. Progress of Wound: Improving right leg - Physical Exam Vital Signs Temp Pulse Resp BP 97.1 F L 84 16 138/67 H 09/05/18 10:25 09/05/18 10:25 09/05/18 10:25 09/05/18 10:25 General: Alert, Oriented x3, Cooperative Extremities: No cyanosis, Capillary Refill Less than 3 Seconds, No Calf Tenderness - Negative Kimberly and Layton sign bilateral, Diminished Peripheral Pulses, Edema - Decreased bilateral lower extremities Skin: Ulcer/ Wound - No purulence, erythema, streaking, odor, or infection right lower extremity. There is peripheral epithelialization noted to all ulcer sites. The peripheral skin is atrophic and hairless. No necrosis or deep tissue noted Wound Measurements and Assessment WC - Nurse 1 - General Ulcer Measurement Start: 08/29/18 09:22 Freq: Status: Active Protocol: Activity Type Activity Date Activity User E-Sign Co-Sign Detail Recorded Client Recorded Date Recorded By Document 09/05/18 10:25 DV [id number] 09/05/18 10:33 DV 09/05/18 10:25 Wound Center Nurse 1 [Ulcer Assessment] #8 RIGHT POSTERIOR CALF -Combined with other wound No -Current Size (cm) - Length 8.0 -Current Size (cm) - Width 2.0 -Current Size (cm) - Depth 0.1 -Total Square Cm 16.00 -Photo Taken No -Epithelialization Small 1-33% -Tunneling No -Undermining/Tunneling No -Circular Undermining No -Classification - Thickness Full Thickness without Exposed Support Structure -Exudate Amt Small (1-33%) -Exudate Type Serous -Wound Margin Indistinct, Non -Visible -Granulation Amt None Present (0 %) -Granulation Quality N/A -Slough/Fibrin Yes -Necrosis Amt None Present (0 %) -Necrotic Tissue Type Adherent Slough -Structure Exposed N/A -Texture (Gabriella-wound Skin Appearance) No Abnormality Assessed -Moisture (Gabriella-wound Skin Appearance No Abnormality ) Assessed -Color (Gabriella-wound Skin Appearance) No Abnormality Assessed -Ulcer Cleansing Rinsed/ Irrigated with Saline -Foul Odor after Cleansing No -Anesthetic Used 4% Lidocaine Solution #5 RIGHT MEDIAL CALF -Combined with other wound No -Current Size (cm) - Length 2.3 -Current Size (cm) - Width 1.0 -Current Size (cm) - Depth 0.1 -Total Square Cm 2.30 -Photo Taken No -Epithelialization None Present -Tunneling No -Undermining/Tunneling No -Circular Undermining No -Classification - Thickness Full Thickness without Exposed Support Structure -Exudate Amt Small (1-33%) -Exudate Type Serous -Wound Margin Indistinct, Non -Visible -Granulation Amt None Present (0 %) -Granulation Quality N/A -Slough/Fibrin Yes -Necrosis Amt Small (1-33%) -Necrotic Tissue Type Adherent Slough -Structure Exposed N/A -Texture (Gabriella-wound Skin Appearance) No Abnormality Assessed -Moisture (Gabriella-wound Skin Appearance No Abnormality ) Assessed -Color (Gabriella-wound Skin Appearance) No Abnormality Assessed -Temperature (Gabriella-wound Skin No Abnormality Appearance) (Pt Warm) -Tenderness on Palpation (Gabriella-wound No Skin Appearance) -Ulcer Cleansing Wound Cleanser -Foul Odor after Cleansing No -Anesthetic Used 4% Lidocaine Solution #3 RIGHT POSTERIOR LATERAL LE CLUSTER -Combined with other wound No -Photo Taken No -Epithelialization None Present -Tunneling No -Undermining/Tunneling No -Circular Undermining No -Classification - Thickness Full Thickness without Exposed Support Structure -Exudate Amt Small (1-33%) -Exudate Type Serosanguineous -Wound Margin Indistinct, Non -Visible -Granulation Amt None Present (0 %) -Granulation Quality N/A -Slough/Fibrin No -Necrosis Amt None Present (0 %) -Necrotic Tissue Type Adherent Slough -Structure Exposed None/Limited to Skin Breakdown -Texture (Gabriella-wound Skin Appearance) No Abnormality Assessed -Moisture (Gabriella-wound Skin Appearance No Abnormality ) Assessed -Temperature (Gabriella-wound Skin No Abnormality Appearance) (Pt Warm) -Tenderness on Palpation (Gabriella-wound No Skin Appearance) -Ulcer Cleansing Rinsed/ Irrigated with Saline -Foul Odor after Cleansing No -Anesthetic Used 4% Lidocaine Solution [Edema Assessment] -Lower Limb Edema Present No -Right Calf (cm) 32.0 -Right Ankle (cm) 20.5 Musculoskeletal: No Tenderness to Palpation of Joints or Extremities, Muscle Wasting Neurological: Sensory exam intact to light touch and pain Psych/Mental Status: Normal Affect, Appropriate Debridement Note Post-Debridement Measurements/Treatment WC - Nurse 2 - General Ulcer CM Notes Start: 08/29/18 09:22 Freq: Status: Active Protocol: Activity Type Activity Date Activity User E-Sign Co-Sign Detail Recorded Client Recorded Date Recorded By Document 08/29/18 09:55 [id number] 08/29/18 10:01 TM 08/29/18 09:55 Wound Center Nurse 2 #8 RIGHT POSTERIOR CALF -Time 09:55 -Correct Patient Yes -Correct Side, Site, Position Yes -Correct Procedure Yes -Procedure Performed Yes -Type of Procedure Debridement -Clinical Debridement Subcutaneous -Post Debridement Size (cm) - Length 9.6 -Post Debridement Size (cm) - Width 1.6 -Post Debridement Size (cm) - Depth 0.1 -Total Square Cm 15.36 -Wound/Ulcer Outcome Not Healed -Ulcer Cleansing Rinsed/ Irrigated with Saline -Foul Odor after Cleansing No -Bioengineered Tissue Yes -Type of bioengineered Tissue EPIFIX -Expiration Date 04/25/23 -Product Lot Number [id number] -Percent Used 33 -Saline Lot Number [id number] -Topical Lidocaine (%) 4 -Bleeding Controlled with Pressure -Offloading No -Treatment Response Procedure Tolerated Well #5 RIGHT MEDIAL CALF -Time 09:57 -Correct Patient Yes -Correct Side, Site, Position Yes -Correct Procedure Yes -Procedure Performed Yes -Type of Procedure Debridement -Clinical Debridement Subcutaneous -Post Debridement Size (cm) - Length 1.5 -Post Debridement Size (cm) - Width 2.6 -Post Debridement Size (cm) - Depth 0.1 -Total Square Cm 3.90 -Wound/Ulcer Outcome Not Healed -Ulcer Cleansing Rinsed/ Irrigated with Saline -Foul Odor after Cleansing No -Bioengineered Tissue Yes -Type of bioengineered Tissue EPIFIX -Expiration Date 04/25/23 -Product Lot Number [id number] -Percent Used 33 -Saline Lot Number [id number] -Topical Lidocaine (%) 4 -Bleeding Controlled with Pressure -Offloading No -Treatment Response Procedure Tolerated Well #4 Left LATERAL calf -Time 09:58 -Correct Patient Yes -Correct Side, Site, Position Yes -Correct Procedure Yes -Procedure Performed Yes -Post Debridement Size (cm) - Length 0 -Post Debridement Size (cm) - Width 0 -Post Debridement Size (cm) - Depth 0 -Total Square Cm 0 -Wound/Ulcer Outcome Healed- Epithelialized -Ulcer Cleansing Rinsed/ Irrigated with Saline -Foul Odor after Cleansing No -Bioengineered Tissue No -Bleeding Controlled with NA -Treatment Response Procedure Not Tolerated Well #3 RIGHT POSTERIOR LATERAL LE CLUSTER -Time 09:58 -Correct Patient Yes -Correct Side, Site, Position Yes -Correct Procedure Yes -Procedure Performed Yes -Type of Procedure Debridement -Clinical Debridement Subcutaneous -Post Debridement Size (cm) - Length 3.1 -Post Debridement Size (cm) - Width 1.1 -Post Debridement Size (cm) - Depth 0.1 -Total Square Cm 3.41 -Wound/Ulcer Outcome Not Healed -Ulcer Cleansing Rinsed/ Irrigated with Saline -Foul Odor after Cleansing No -Bioengineered Tissue Yes -Type of bioengineered Tissue EPIFIX -Expiration Date 04/25/23 -Product Lot Number [id number] -Percent Used 33 -Saline Lot Number [id number] -Topical Lidocaine (%) 4 -Bleeding Controlled with Pressure -Offloading No -Treatment Response Procedure Tolerated Well Pain Scale: 0-10 Numeric Is Patient Pain Free? Yes Wound debrided: medial leg Laterality: Right Type of Debridement: Excisional debridement Anesthesia Used: 5% Lidocaine Gel Depth: in the subcutaneous layer Percentage of wound debrided: 100 Instrument Used: #15 blade Tissue Removed: fibrous, devitalized subcutaneous, biofilm, slough Severity: Fat Layer Exposed Amount of bleeding with debridement: Mild Bleeding Controlled with: Pressure Patient tolerated procedure well - Post debridement measurement 2.4 x 1.1 cm =total area debridement 2.64 squared cm - Additional Wound Wound debrided: posterior leg cluster Laterality: Right Type of Debridement: Excisional debridement Anesthesia Used: 5% Lidocaine Gel Depth: in the subcutaneous layer Percentage of wound debrided: 20 Instrument Used: #15 blade Tissue Removed: fibrous, devitalized subcutaneous, biofilm, slough Severity: Fat Layer Exposed Amount of bleeding with debridement: Mild Bleeding Controlled with: Pressure Patient tolerated procedure: Patient tolerated procedure well - Post debridement measurement 8.1 x 2.1 cm= total area debrided 17.01 cm in which 20% was actually debrided for a total of 3.4 squared centimeters Assessment/Plan Active Problems (Last Reviewed 08/08/18 @ 08:27 by Coleen Soto NP-C) Venous insufficiency (chronic) (peripheral) (Chronic) Calciphylaxis (Chronic) Ulcer of right lower extremity with fat layer exposed (Chronic) Assessment: Right leg ulcers with fat layer exposed, chronic and noninfected. Delayed healing. venous insufficiency. Malnutrition suspected. Lower extremity pain. Multiple comorbidities noted. Calciphylaxis Plan: She was evaluated today and her care plan was discussed. Subcutaneous excisional debridement was performed to the right leg as noted in the clinical panel. Her left leg ulcer sites have completely healed. verbal consent was obtained for advanced wound care product epifix and this was applied to the right leg ulcer sites. She is approved for application of advanced wound care product, epi fix today. The indications plan application and anticipated healing and management were discussed. This was applied according to standard protocol after verbal consent was obtained to the right posterior leg and the left lateral leg. She tolerated this well. To keep clean and dry and intact until follow-up next week. This was secured in place with Steri-Strips and wound veil. Wound veil covered medial right leg ulcer only. I recommend continued serial application of advanced wound care products until full closure was achieved. She had a follow up with Dr. Pelaez for evaluation of her arterial Doppler exam which appeared to have distal perfusion. A biopsy of the leg skin was previously obtained and the results were reviewed today and will be placed in her chart. I reiterated the importance of taking pressure off of these wound sites. He has completed a course of sodium thiosulfate for treatment of calciphylaxis as prescribed. She will continue on a low-dose prednisone and further calciphylaxis for sarcoidosis workup with her band aid machine operator, Dr. Almonte. It is also noted she is going to schedule for a lung biopsy for workup of sarcoidosis nodule versus other mass growth after September. I answered all of her questions. To return to the wound healing center 1 week or call sooner if there are any questions or concerns.
--- NOTE | 2018-09-05 11:27 | PN.PCM_ITS ---
(1) Ulcer of right lower extremity with fat layer exposed Status: Chronic Current Visit: Yes Code(s): L97.912 - Non-pressure chronic ulcer of unspecified part of right lower leg with fat layer exposed (2) Venous insufficiency (chronic) (peripheral) Status: Chronic Current Visit: Yes Code(s): I87.2 - Venous insufficiency (chronic) (peripheral) (3) Calciphylaxis Status: Chronic Current Visit: Yes Code(s): E83.59 - Other disorders of calcium metabolism Type of Wound Date of Service: 09/05/18 Chief Complaint: Ulcers right leg History of Wound: Di is a 72 year old female that returns for follow up of bilateral leg ulcers. She had several theraskin and Apligraf applications applied in the clinical setting. She had a previous versa jet debridement with serial amnio fill, advanced wound care product, application in the operating room this past week. She denies pain, fever, chill, nausea, vomiting. She has been treated medically for calciphylaxis. Progress of Wound: Improving right leg - Physical Exam Vital Signs Temp Pulse Resp BP 97.1 F L 84 16 138/67 H 09/05/18 10:25 09/05/18 10:25 09/05/18 10:25 09/05/18 10:25 General: Alert, Oriented x3, Cooperative Extremities: No cyanosis, Capillary Refill Less than 3 Seconds, No Calf Tenderness - Negative Kimberly and Layton sign bilateral, Diminished Peripheral Pulses, Edema - Decreased bilateral lower extremities Skin: Ulcer/ Wound - No purulence, erythema, streaking, odor, or infection right lower extremity. There is peripheral epithelialization noted to all ulcer sites. The peripheral skin is atrophic and hairless. No necrosis or deep tissue noted Wound Measurements and Assessment WC - Nurse 1 - General Ulcer Measurement Start: 08/29/18 09:22 Freq: Status: Active Protocol: Activity Type Activity Date Activity User E-Sign Co-Sign Detail Recorded Client Recorded Date Recorded By Document 09/05/18 10:25 DV [id number] 09/05/18 10:33 DV 09/05/18 10:25 Wound Center Nurse 1 [Ulcer Assessment] #8 RIGHT POSTERIOR CALF -Combined with other wound No -Current Size (cm) - Length 8.0 -Current Size (cm) - Width 2.0 -Current Size (cm) - Depth 0.1 -Total Square Cm 16.00 -Photo Taken No -Epithelialization Small 1-33% -Tunneling No -Undermining/Tunneling No -Circular Undermining No -Classification - Thickness Full Thickness without Exposed Support Structure -Exudate Amt Small (1-33%) -Exudate Type Serous -Wound Margin Indistinct, Non -Visible -Granulation Amt None Present (0 %) -Granulation Quality N/A -Slough/Fibrin Yes -Necrosis Amt None Present (0 %) -Necrotic Tissue Type Adherent Slough -Structure Exposed N/A -Texture (Gabriella-wound Skin Appearance) No Abnormality Assessed -Moisture (Gabriella-wound Skin Appearance No Abnormality ) Assessed -Color (Gabriella-wound Skin Appearance) No Abnormality Assessed -Ulcer Cleansing Rinsed/ Irrigated with Saline -Foul Odor after Cleansing No -Anesthetic Used 4% Lidocaine Solution #5 RIGHT MEDIAL CALF -Combined with other wound No -Current Size (cm) - Length 2.3 -Current Size (cm) - Width 1.0 -Current Size (cm) - Depth 0.1 -Total Square Cm 2.30 -Photo Taken No -Epithelialization None Present -Tunneling No -Undermining/Tunneling No -Circular Undermining No -Classification - Thickness Full Thickness without Exposed Support Structure -Exudate Amt Small (1-33%) -Exudate Type Serous -Wound Margin Indistinct, Non -Visible -Granulation Amt None Present (0 %) -Granulation Quality N/A -Slough/Fibrin Yes -Necrosis Amt Small (1-33%) -Necrotic Tissue Type Adherent Slough -Structure Exposed N/A -Texture (Gabriella-wound Skin Appearance) No Abnormality Assessed -Moisture (Gabriella-wound Skin Appearance No Abnormality ) Assessed -Color (Gabriella-wound Skin Appearance) No Abnormality Assessed -Temperature (Gabriella-wound Skin No Abnormality Appearance) (Pt Warm) -Tenderness on Palpation (Gabriella-wound No Skin Appearance) -Ulcer Cleansing Wound Cleanser -Foul Odor after Cleansing No -Anesthetic Used 4% Lidocaine Solution #3 RIGHT POSTERIOR LATERAL LE CLUSTER -Combined with other wound No -Photo Taken No -Epithelialization None Present -Tunneling No -Undermining/Tunneling No -Circular Undermining No -Classification - Thickness Full Thickness without Exposed Support Structure -Exudate Amt Small (1-33%) -Exudate Type Serosanguineous -Wound Margin Indistinct, Non -Visible -Granulation Amt None Present (0 %) -Granulation Quality N/A -Slough/Fibrin No -Necrosis Amt None Present (0 %) -Necrotic Tissue Type Adherent Slough -Structure Exposed None/Limited to Skin Breakdown -Texture (Gabriella-wound Skin Appearance) No Abnormality Assessed -Moisture (Gabriella-wound Skin Appearance No Abnormality ) Assessed -Temperature (Gabriella-wound Skin No Abnormality Appearance) (Pt Warm) -Tenderness on Palpation (Gabriella-wound No Skin Appearance) -Ulcer Cleansing Rinsed/ Irrigated with Saline -Foul Odor after Cleansing No -Anesthetic Used 4% Lidocaine Solution [Edema Assessment] -Lower Limb Edema Present No -Right Calf (cm) 32.0 -Right Ankle (cm) 20.5 Musculoskeletal: No Tenderness to Palpation of Joints or Extremities, Muscle Wasting Neurological: Sensory exam intact to light touch and pain Psych/Mental Status: Normal Affect, Appropriate Debridement Note Post-Debridement Measurements/Treatment WC - Nurse 2 - General Ulcer CM Notes Start: 08/29/18 09:22 Freq: Status: Active Protocol: Activity Type Activity Date Activity User E-Sign Co-Sign Detail Recorded Client Recorded Date Recorded By Document 08/29/18 09:55 [id number] 08/29/18 10:01 TM 08/29/18 09:55 Wound Center Nurse 2 #8 RIGHT POSTERIOR CALF -Time 09:55 -Correct Patient Yes -Correct Side, Site, Position Yes -Correct Procedure Yes -Procedure Performed Yes -Type of Procedure Debridement -Clinical Debridement Subcutaneous -Post Debridement Size (cm) - Length 9.6 -Post Debridement Size (cm) - Width 1.6 -Post Debridement Size (cm) - Depth 0.1 -Total Square Cm 15.36 -Wound/Ulcer Outcome Not Healed -Ulcer Cleansing Rinsed/ Irrigated with Saline -Foul Odor after Cleansing No -Bioengineered Tissue Yes -Type of bioengineered Tissue EPIFIX -Expiration Date 04/25/23 -Product Lot Number [id number] -Percent Used 33 -Saline Lot Number [id number] -Topical Lidocaine (%) 4 -Bleeding Controlled with Pressure -Offloading No -Treatment Response Procedure Tolerated Well #5 RIGHT MEDIAL CALF -Time 09:57 -Correct Patient Yes -Correct Side, Site, Position Yes -Correct Procedure Yes -Procedure Performed Yes -Type of Procedure Debridement -Clinical Debridement Subcutaneous -Post Debridement Size (cm) - Length 1.5 -Post Debridement Size (cm) - Width 2.6 -Post Debridement Size (cm) - Depth 0.1 -Total Square Cm 3.90 -Wound/Ulcer Outcome Not Healed -Ulcer Cleansing Rinsed/ Irrigated with Saline -Foul Odor after Cleansing No -Bioengineered Tissue Yes -Type of bioengineered Tissue EPIFIX -Expiration Date 04/25/23 -Product Lot Number [id number] -Percent Used 33 -Saline Lot Number [id number] -Topical Lidocaine (%) 4 -Bleeding Controlled with Pressure -Offloading No -Treatment Response Procedure Tolerated Well #4 Left LATERAL calf -Time 09:58 -Correct Patient Yes -Correct Side, Site, Position Yes -Correct Procedure Yes -Procedure Performed Yes -Post Debridement Size (cm) - Length 0 -Post Debridement Size (cm) - Width 0 -Post Debridement Size (cm) - Depth 0 -Total Square Cm 0 -Wound/Ulcer Outcome Healed- Epithelialized -Ulcer Cleansing Rinsed/ Irrigated with Saline -Foul Odor after Cleansing No -Bioengineered Tissue No -Bleeding Controlled with NA -Treatment Response Procedure Not Tolerated Well #3 RIGHT POSTERIOR LATERAL LE CLUSTER -Time 09:58 -Correct Patient Yes -Correct Side, Site, Position Yes -Correct Procedure Yes -Procedure Performed Yes -Type of Procedure Debridement -Clinical Debridement Subcutaneous -Post Debridement Size (cm) - Length 3.1 -Post Debridement Size (cm) - Width 1.1 -Post Debridement Size (cm) - Depth 0.1 -Total Square Cm 3.41 -Wound/Ulcer Outcome Not Healed -Ulcer Cleansing Rinsed/ Irrigated with Saline -Foul Odor after Cleansing No -Bioengineered Tissue Yes -Type of bioengineered Tissue EPIFIX -Expiration Date 04/25/23 -Product Lot Number [id number] -Percent Used 33 -Saline Lot Number [id number] -Topical Lidocaine (%) 4 -Bleeding Controlled with Pressure -Offloading No -Treatment Response Procedure Tolerated Well Pain Scale: 0-10 Numeric Is Patient Pain Free? Yes Wound debrided: medial leg Laterality: Right Type of Debridement: Excisional debridement Anesthesia Used: 5% Lidocaine Gel Depth: in the subcutaneous layer Percentage of wound debrided: 100 Instrument Used: #15 blade Tissue Removed: fibrous, devitalized subcutaneous, biofilm, slough Severity: Fat Layer Exposed Amount of bleeding with debridement: Mild Bleeding Controlled with: Pressure Patient tolerated procedure well - Post debridement measurement 2.4 x 1.1 cm =total area debridement 2.64 squared cm - Additional Wound Wound debrided: posterior leg cluster Laterality: Right Type of Debridement: Excisional debridement Anesthesia Used: 5% Lidocaine Gel Depth: in the subcutaneous layer Percentage of wound debrided: 20 Instrument Used: #15 blade Tissue Removed: fibrous, devitalized subcutaneous, biofilm, slough Severity: Fat Layer Exposed Amount of bleeding with debridement: Mild Bleeding Controlled with: Pressure Patient tolerated procedure: Patient tolerated procedure well - Post debridement measurement 8.1 x 2.1 cm= total area debrided 17.01 cm in which 20% was actually debrided for a total of 3.4 squared centimeters Assessment/Plan Active Problems (Last Reviewed 08/08/18 @ 08:27 by Coleen Soto NP-C) Venous insufficiency (chronic) (peripheral) (Chronic) Calciphylaxis (Chronic) Ulcer of right lower extremity with fat layer exposed (Chronic) Assessment: Right leg ulcers with fat layer exposed, chronic and noninfected. Delayed healing. venous insufficiency. Malnutrition suspected. Lower extremity pain. Multiple comorbidities noted. Calciphylaxis Plan: She was evaluated today and her care plan was discussed. Subcutaneous excisional debridement was performed to the right leg as noted in the clinical panel. Her left leg ulcer sites have completely healed. verbal consent was obtained for advanced wound care product epifix and this was applied to the right leg ulcer sites. She is approved for application of advanced wound care product, epi fix today. The indications plan application and anticipated healing and management were discussed. This was applied according to standard protocol after verbal consent was obtained to the right posterior leg and the left lateral leg. She tolerated this well. To keep clean and dry and intact until follow-up next week. This was secured in place with Steri-Strips and wound veil. Wound veil covered medial right leg ulcer only. I recommend continued serial application of advanced wound care products until full closure was achieved. She had a follow up with Dr. Pelaez for evaluation of her arterial Doppler exam which appeared to have distal perfusion. A biopsy of the leg skin was previously obtained and the results were reviewed today and will be placed in her chart. I reiterated the importance of taking pressure off of these wound sites. He has completed a course of sodium thiosulfate for treatment of calciphylaxis as prescribed. She will continue on a low-dose prednisone and further calciphylaxis for sarcoidosis workup with her transit mixer driver, Dr. Almonte. It is also noted she is going to schedule for a lung b iopsy for workup of sarcoidosis nodule versus other mass growth after September. I answered all of her questions. To return to the wound healing center 1 week or call sooner if there are any questions or concerns.
[2018-09-12 09:20] VITALS: BP 143/97; PULSE 114; RESP 20; TEMP 36.3; BMI 35.4
--- NOTE | 2018-09-12 10:42 | PCM.WC.PN ---
(1) Ulcer of right lower extremity with fat layer exposed Status: Chronic Current Visit: Yes Code(s): L97.912 - Non-pressure chronic ulcer of unspecified part of right lower leg with fat layer exposed (2) Venous insufficiency (chronic) (peripheral) Status: Chronic Current Visit: Yes Code(s): I87.2 - Venous insufficiency (chronic) (peripheral) (3) Calciphylaxis Status: Chronic Current Visit: Yes Code(s): E83.59 - Other disorders of calcium metabolism Type of Wound Date of Service: 09/12/18 Chief Complaint: Ulcers right leg History of Wound: Di is a 72 year old female that returns for follow up of bilateral leg ulcers. She had previous advanced wound care products and multiple debridements performed. Her left leg ulcer remains healed. Her right leg ulcers remain open and are decreasing in size. She denies pain. She denies pain, fever, chill, nausea, vomiting. She has been treated medically for calciphylaxis. Progress of Wound: Improving - Physical Exam Vital Signs Temp Pulse Resp BP 97.4 F L 114 H 20 H 143/97 H 09/12/18 09:20 09/12/18 09:20 09/12/18 09:20 09/12/18 09:20 General: Alert, Oriented x3, Cooperative Extremities: No cyanosis, Capillary Refill Less than 3 Seconds, No Calf Tenderness - Negative Kimberly and [place] bilateral, Diminished Peripheral Pulses - Palpable DP pulse right, Edema - Mild right lower extremity Skin: Ulcer/ Wound - No purulence, erythema, streaking, odor, or acute signs of infection right lower extremity. Peripheral skin is hairless and atrophic. There is no eschar deep tissue exposed. Wound Measurements and Assessment WC - Nurse 1 - General Ulcer Measurement Start: 08/29/18 09:22 Freq: Status: Active Protocol: Activity Type Activity Date Activity User E-Sign Co-Sign Detail Recorded Client Recorded Date Recorded By Document 09/12/18 09:20 [id number] 09/12/18 09:31 DL 09/12/18 09:20 Wound Center Nurse 1 [Ulcer Assessment] #8 RIGHT POSTERIOR CALF -Current Size (cm) - Length 1.8 -Current Size (cm) - Width 1 -Current Size (cm) - Depth 0.1 -Total Square Cm 1.8 -Photo Taken No -Exudate Amt Small (1-33%) -Exudate Type Serosanguineous -Wound Margin Distinct, Outline Attached -Granulation Amt Large (67-100%) -Granulation Quality [place] -Necrosis Amt Small (1-33%) -Necrotic Tissue Type Adherent Slough -Structure Exposed N/A -Texture (Gabriella-wound Skin Appearance) Scarring -Moisture (Gabriella-wound Skin Appearance Dry/Scaly ) -Color (Gabriella-wound Skin Appearance) Hemosiderin Staining Rubor -Temperature (Gabriella-wound Skin No Abnormality Appearance) (Pt Warm) -Tenderness on Palpation (Gabriella-wound No Skin Appearance) -Ulcer Cleansing Wound Cleanser -Foul Odor after Cleansing No -Anesthetic Used 4% Lidocaine Solution #5 RIGHT MEDIAL CALF -Current Size (cm) - Length 1 -Current Size (cm) - Width 1 -Current Size (cm) - Depth 0.1 -Total Square Cm 1 -Photo Taken No -Exudate Amt None Present (0 %) -Wound Margin Distinct, Outline Attached -Granulation Amt Large (67-100%) -Granulation Quality [place] -Necrosis Amt None Present (0 %) -Structure Exposed N/A -Texture (Gabriella-wound Skin Appearance) Scarring -Moisture (Gabriella-wound Skin Appearance Dry/Scaly ) -Color (Gabriella-wound Skin Appearance) Hemosiderin Staining -Temperature (Gabriella-wound Skin No Abnormality Appearance) (Pt Warm) -Tenderness on Palpation (Gabriella-wound No Skin Appearance) -Ulcer Cleansing Wound Cleanser -Foul Odor after Cleansing No -Anesthetic Used 4% Lidocaine Solution #3 RIGHT POSTERIOR LATERAL LE CLUSTER -Current Size (cm) - Length 1.1 -Current Size (cm) - Width 1 -Current Size (cm) - Depth 0.1 -Total Square Cm 1.1 -Photo Taken No -Exudate Amt None Present (0 %) -Wound Margin Distinct, Outline Attached -Granulation Amt Small (1-33%) -Granulation Quality [place] -Necrosis Amt Large (67-100%) -Necrotic Tissue Type Adherent Slough -Structure Exposed N/A -Texture (Gabriella-wound Skin Appearance) Scarring -Moisture (Gabriella-wound Skin Appearance Dry/Scaly ) -Color (Gabriella-wound Skin Appearance) Hemosiderin Staining -Temperature (Gabriella-wound Skin No Abnormality Appearance) (Pt Warm) -Tenderness on Palpation (Gabriella-wound No Skin Appearance) -Ulcer Cleansing Wound Cleanser -Foul Odor after Cleansing No -Anesthetic Used 4% Lidocaine Solution [Edema Assessment] -Right Calf (cm) 31.7 -Right Ankle (cm) 20 WC - Nurse 2 - General Ulcer CM Notes Start: 08/29/18 09:22 Freq: Status: Active Protocol: Activity Type Activity Date Activity User E-Sign Co-Sign Detail Recorded Client Recorded Date Recorded By Document 09/12/18 09:39 DL [id number] 09/12/18 09:45 DL 09/12/18 09:39 Wound Center Nurse 2 [Procedure/Treatment] #8 RIGHT POSTERIOR CALF -Time 09:39 -Correct Patient Yes -Correct Side, Site, Position Yes -Correct Procedure Yes -Procedure Performed Yes -Type of Procedure Debridement -Clinical Debridement Subcutaneous -Post Debridement Size (cm) - Length 1.8 -Post Debridement Size (cm) - Width 1 -Post Debridement Size (cm) - Depth 0.1 -Total Square Cm 1.8 -Wound/Ulcer Outcome Not Healed -Ulcer Cleansing Rinsed/ Irrigated with Saline -Foul Odor after Cleansing No -Bioengineered Tissue Yes -Type of bioengineered Tissue EPIFIX -Expiration Date 03/25/23 -Product Lot Number [id number] -Percent Used 100 -Saline Lot Number [id number] -Bleeding Controlled with Pressure -Offloading No -Treatment Response Procedure Tolerated Well #5 RIGHT MEDIAL CALF -Time 09:39 -Correct Patient Yes -Correct Side, Site, Position Yes -Correct Procedure Yes -Procedure Performed Yes -Type of Procedure Debridement -Clinical Debridement Subcutaneous -Post Debridement Size (cm) - Length 1.1 -Post Debridement Size (cm) - Width 1 -Post Debridement Size (cm) - Depth 0.1 -Total Square Cm 1.1 -Wound/Ulcer Outcome Not Healed -Ulcer Cleansing Rinsed/ Irrigated with Saline -Foul Odor after Cleansing No -Bioengineered Tissue Yes -Type of bioengineered Tissue EPIFIX -Expiration Date 03/25/23 -Product Lot Number [id number] -Percent Used 100 -Saline Lot Number [id number] -Bleeding Controlled with Pressure -Offloading No -Treatment Response Procedure Tolerated Well #3 RIGHT POSTERIOR LATERAL LE CLUSTER -Time 09:40 -Correct Patient No -Correct Side, Site, Position No -Correct Procedure No -Procedure Performed No -Post Debridement Size (cm) - Length 0 -Post Debridement Size (cm) - Width 0 -Post Debridement Size (cm) - Depth 0 -Total Square Cm 0 -Wound/Ulcer Outcome Healed- Epithelialized -Ulcer Cleansing Rinsed/ Irrigated with Saline -Foul Odor after Cleansing No -Bioengineered Tissue No -Bleeding Controlled with Pressure -Offloading No -Treatment Response Procedure Tolerated Well [See Physician Procedure note for Specifics] Pain Scale: 0-10 Numeric [Pain] -Is Patient Pain Free? Yes Musculoskeletal: No Tenderness to Palpation of Joints or Extremities, Muscle Wasting Neurological: Sensory exam intact to light touch and pain Psych/Mental Status: Normal Affect, Appropriate Debridement Note Post-Debridement Measurements/Treatment WC - Nurse 2 - General Ulcer CM Notes Start: 08/29/18 09:22 Freq: Status: Active Protocol: Activity Type Activity Date Activity User E-Sign Co-Sign Detail Recorded Client Recorded Date Recorded By Document 08/29/18 09:55 [email or web address] 08/29/18 10:01 Document 09/05/18 12:26 [id number] 09/05/18 12:30 Document 09/12/18 09:39 DL [id number] 09/12/18 09:45 DL 08/29/18 09/05/18 09/12/18 09:55 12:26 09:39 Wound Center Nurse 2 #8 RIGHT POSTERIOR CALF -Time 09:55 12:27 09:39 -Correct Patient Yes Yes Yes -Correct Side, Site, Position Yes Yes Yes -Correct Procedure Yes Yes Yes -Procedure Performed Yes Yes Yes -Type of Procedure Debridement Debridement Debridement -Clinical Debridement Subcutaneous Subcutaneous Subcutaneous -Post Debridement Size (cm) - Length 9.6 8.1 1.8 -Post Debridement Size (cm) - Width 1.6 2.0 1 -Post Debridement Size (cm) - Depth 0.1 0.1 0.1 -Total Square Cm 15.36 16.20 1.8 -Wound/Ulcer Outcome Not Healed Not Healed Not Healed -Ulcer Cleansing Rinsed/ Rinsed/ Rinsed/ Irrigated with Irrigated with Irrigated with Saline Saline Saline -Foul Odor after Cleansing No No No -Bioengineered Tissue Yes Yes Yes -Type of bioengineered Tissue EPIFIX EPIFIX EPIFIX -Expiration Date 0804/25/23 03/25/23 -Product Lot Number [id number] -Percent Used 33 100 100 -Saline Lot Number [id number] -Topical Lidocaine (%) 4 -Bleeding Controlled with Pressure Pressure Pressure -Offloading No No No -Treatment Response Procedure Procedure Procedure Tolerated Well Tolerated Well Tolerated Well #5 RIGHT MEDIAL CALF -Time 09:57 12:27 09:39 -Correct Patient Yes Yes Yes -Correct Side, Site, Position Yes Yes Yes -Correct Procedure Yes Yes Yes -Procedure Performed Yes Yes Yes -Type of Procedure Debridement Debridement Debridement -Clinical Debridement Subcutaneous Subcutaneous Subcutaneous -Post Debridement Size (cm) - Length 1.5 2.4 1.1 -Post Debridement Size (cm) - Width 2.6 1.0 1 -Post Debridement Size (cm) - Depth 0.1 0.1 0.1 -Total Square Cm 3.90 2.40 1.1 -Wound/Ulcer Outcome Not Healed Not Healed Not Healed -Ulcer Cleansing Rinsed/ Rinsed/ Rinsed/ Irrigated with Irrigated with Irrigated with Saline Saline Saline -Foul Odor after Cleansing No No No -Bioengineered Tissue Yes Yes Yes -Type of bioengineered Tissue EPIFIX EPIFIX EPIFIX -Expiration Date 04/25/23 04/25/23 03/25/23 -Product Lot Number [id number] -Percent Used 33 100 100 -Saline Lot Number [id number] -Topical Lidocaine (%) 4 -Bleeding Controlled with Pressure Pressure Pressure -Offloading No No No -Treatment Response Procedure Procedure Procedure Tolerated Well Tolerated Well Tolerated Well #4 Left LATERAL calf -Time 09:58 -Correct Patient Yes -Correct Side, Site, Position Yes -Correct Procedure Yes -Procedure Performed Yes -Post Debridement Size (cm) - Length 0 -Post Debridement Size (cm) - Width 0 -Post Debridement Size (cm) - Depth 0 -Total Square Cm 0 -Wound/Ulcer Outcome Healed- Epithelialized -Ulcer Cleansing Rinsed/ Irrigated with Saline -Foul Odor after Cleansing No -Bioengineered Tissue No -Bleeding Controlled with NA -Treatment Response Procedure Not Tolerated Well #3 RIGHT POSTERIOR LATERAL LE CLUSTER -Time 09:58 12:27 09:40 -Correct Patient Yes Yes No -Correct Side, Site, Position Yes Yes No -Correct Procedure Yes Yes No -Procedure Performed Yes Yes No -Type of Procedure Debridement Debridement -Clinical Debridement Subcutaneous Subcutaneous -Post Debridement Size (cm) - Length 3.1 3.5 0 -Post Debridement Size (cm) - Width 1.1 1 0 -Post Debridement Size (cm) - Depth 0.1 0.1 0 -Total Square Cm 3.41 3.5 0 -Wound/Ulcer Outcome Not Healed Not Healed Healed- Epithelialized -Ulcer Cleansing Rinsed/ Rinsed/ Rinsed/ Irrigated with Irrigated with Irrigated with Saline Saline Saline -Foul Odor after Cleansing No No No -Bioengineered Tissue Yes Yes No -Type of bioengineered Tissue EPIFIX EPIFIX -Expiration Date 04/25/23 04/25/23 -Product Lot Number [id number] -Percent Used 33 100 -Saline Lot Number [id number] -Topical Lidocaine (%) 4 -Bleeding Controlled with Pressure Pressure Pressure -Offloading No No No -Treatment Response Procedure Procedure Procedure Tolerated Well Tolerated Well Tolerated Well Pain Scale: 0-10 Numeric Is Patient Pain Free? Yes Yes Yes Wound debrided: medial leg Laterality: Right Type of Debridement: Excisional debridement Anesthesia Used: 4% Lidocaine Solution Depth: in the subcutaneous layer Percentage of wound debrided: 100 Instrument Used: #15 blade Tissue Removed: fibrous, devitalized subcutaneous, biofilm, slough Severity: Fat Layer Exposed Amount of bleeding with debridement: Mild Bleeding Controlled with: Pressure Patient tolerated procedure well - Additional Wound Wound debrided: lateral leg Laterality: Right Type of Debridement: Excisional debridement Anesthesia Used: 4% Lidocaine Solution Depth: in the subcutaneous layer Percentage of wound debrided: 100 Instrument Used: #15 blade Tissue Removed: fibrous, devitalized subcutaneous, biofilm, slough Severity: Fat Layer Exposed Amount of bleeding with debridement: Mild Bleeding Controlled with: Pressure Patient tolerated procedure: Patient tolerated procedure well Assessment/Plan Active Problems (Last Reviewed 08/08/18 @ 08:27 by Coleen Soto NP-C) Venous insufficiency (chronic) (peripheral) (Chronic) Calciphylaxis (Chronic) Ulcer of right lower extremity with fat layer exposed (Chronic) Assessment: Right leg ulcers with fat layer exposed, chronic and noninfected. Delayed healing. venous insufficiency. Malnutrition suspected. Lower extremity pain. Multiple comorbidities noted. Calciphylaxis Plan: She was evaluated today and her care plan was discussed. Subcutaneous excisional debridement was performed to the right leg as noted in the clinical panel. Her left leg ulcer sites have completely healed. verbal consent was obtained for advanced wound care product epifix and this was applied to the right leg ulcer sites. She is approved for application of advanced wound care product, epi fix today. The indications plan application and anticipated healing and management were discussed. This was applied according to standard protocol after verbal consent was obtained to the right posterior leg and the left lateral leg. She tolerated this well. To keep clean and dry and intact until follow-up next week. This was secured in place with Steri-Strips and wound veil. Wound veil covered medial right leg ulcer only. I recommend continued serial application of advanced wound care products until full closure was achieved. She had a follow up with Dr. Pelaez for evaluation of her arterial Doppler exam which appeared to have distal perfusion. A biopsy of the leg skin was previously obtained and the results were reviewed today and will be placed in her chart. I reiterated the importance of taking pressure off of these wound sites. He has completed a course of sodium thiosulfate for treatment of calciphylaxis as prescribed. 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 Almonte. It is also noted she is going to schedule for a lung biopsy for workup of sarcoidosis nodule versus other mass growth after September. I answered all of her questions. To return to the wound healing center 1 week or call sooner if there are any questions or concerns.
[2018-09-19 09:33] VITALS: BP 146/80; PULSE 90; RESP 18; TEMP 36.3; BMI 35.4
--- NOTE | 2018-09-19 10:52 | PCM.WC.PN ---
(1) Ulcer of right lower extremity with fat layer exposed Status: Chronic Current Visit: Yes Code(s): L97.912 - Non-pressure chronic ulcer of unspecified part of right lower leg with fat layer exposed (2) Venous insufficiency (chronic) (peripheral) Status: Chronic Current Visit: Yes Code(s): I87.2 - Venous insufficiency (chronic) (peripheral) (3) Calciphylaxis Status: Chronic Current Visit: Yes Code(s): E83.59 - Other disorders of calcium metabolism Type of Wound Date of Service: 09/19/18 Chief Complaint: Ulcers right leg History of Wound: Di is a 72 year old female that returns for follow up of bilateral leg ulcers. She had previous advanced wound care products and multiple debridements performed. She denies pain. She denies pain, fever, chill, nausea, vomiting. She has been treated medically for calciphylaxis. She kept her dressing advance wound care product intact this past week as advised. Progress of Wound: Improving - Physical Exam Vital Signs Temp Pulse Resp BP 97.3 F L 90 18 146/80 H 09/19/18 09:33 09/19/18 09:33 09/19/18 09:33 09/19/18 09:33 General: Alert, Oriented x3, Cooperative Extremities: No cyanosis, Capillary Refill Less than 3 Seconds, No Calf Tenderness - Negative Kimberly and Layton sign lateral, Diminished Peripheral Pulses, Edema - Mild right lower extremity, Tenderness - No pain with ulcer manipulation or debridement right leg Skin: Ulcer/ Wound - No purulence, erythema, streaking, odor, or acute infection. There is no deep tissue necrosis or eschar noted. The peripheral skin is hairless and atrophic. The medial ulcer has significantly reduced in size. The lateral leg ulcer is fully epithelialized and is healed today. Wound Measurements and Assessment WC - Nurse 1 - General Ulcer Measurement Start: 08/29/18 09:22 Freq: Status: Active Protocol: Activity Type Activity Date Activity User E-Sign Co-Sign Detail Recorded Client Recorded Date Recorded By Document 09/19/18 09:33 RB [id number] 09/19/18 09:49 RB 09/19/18 09:33 Wound Center Nurse 1 [Ulcer Assessment] #8 RIGHT POSTERIOR CALF -Combined with other wound No -Current Size (cm) - Length 0.1 -Current Size (cm) - Width 0.1 -Current Size (cm) - Depth 0.1 -Total Square Cm 0.01 -Photo Taken No -Tunneling No -Undermining/Tunneling No -Circular Undermining No -Exudate Amt None Present (0 %) -Wound Margin Distinct, Outline Attached -Granulation Amt Large (67-100%) -Granulation Quality [place] -Slough/Fibrin Yes -Necrosis Amt Small (1-33%) -Necrotic Tissue Type Adherent Slough -Structure Exposed N/A -Texture (Gabriella-wound Skin Appearance) Assessed -Moisture (Gabriella-wound Skin Appearance Assessed ) -Color (Gabriella-wound Skin Appearance) Assessed -Temperature (Gabriella-wound Skin No Abnormality Appearance) (Pt Warm) -Tenderness on Palpation (Gabriella-wound No Skin Appearance) -Ulcer Cleansing Rinsed/ Irrigated with Saline -Foul Odor after Cleansing No -Anesthetic Used 5% Lidocaine Gel #5 RIGHT MEDIAL CALF -Combined with other wound No -Current Size (cm) - Length 0.7 -Current Size (cm) - Width 1.2 -Current Size (cm) - Depth 0.1 -Total Square Cm 0.84 -Photo Taken No -Tunneling No -Undermining/Tunneling No -Circular Undermining No -Exudate Amt Small (1-33%) -Exudate Type Serosanguineous -Wound Margin Distinct, Outline Attached -Granulation Amt Large (67-100%) -Granulation Quality [place] -Slough/Fibrin Yes -Necrosis Amt Small (1-33%) -Necrotic Tissue Type Adherent Slough -Structure Exposed N/A -Texture (Gabriella-wound Skin Appearance) Assessed -Moisture (Gabriella-wound Skin Appearance Assessed ) -Color (Gabriella-wound Skin Appearance) Assessed -Temperature (Gabriella-wound Skin No Abnormality Appearance) (Pt Warm) -Tenderness on Palpation (Gabriella-wound No Skin Appearance) -Ulcer Cleansing Rinsed/ Irrigated with Saline -Foul Odor after Cleansing No -Anesthetic Used 5% Lidocaine Gel #3 RIGHT POSTERIOR LATERAL [place] CLUSTER -Combined with other wound No -Current Size (cm) - Length 0.1 -Current Size (cm) - Width 0.1 -Current Size (cm) - Depth 0.1 -Total Square Cm 0.01 -Photo Taken No -Tunneling No -Undermining/Tunneling No -Circular Undermining No -Exudate Amt None Present (0 %) -Wound Margin Distinct, Outline Attached -Granulation Amt Large (67-100%) -Granulation Quality [place] -Slough/Fibrin No -Necrosis Amt None Present (0 %) -Structure Exposed N/A -Texture (Gabriella-wound Skin Appearance) Assessed -Moisture (Gabriella-wound Skin Appearance Assessed ) -Color (Gabriella-wound Skin Appearance) Assessed -Temperature (Gabriella-wound Skin No Abnormality Appearance) (Pt Warm) -Tenderness on Palpation (Gabriella-wound No Skin Appearance) -Ulcer Cleansing Rinsed/ Irrigated with Saline -Foul Odor after Cleansing No -Anesthetic Used 5% Lidocaine Gel [Edema Assessment] -Lower Limb Edema Present Yes -Right Calf (cm) 33.2 -Right Ankle (cm) 21 WC - Nurse 2 - General Ulcer CM Notes Start: 08/29/18 09:22 Freq: Status: Active Protocol: Activity Type Activity Date Activity User E-Sign Co-Sign Detail Recorded Client Recorded Date Recorded By Document 09/19/18 09:54 [id number] 09/19/18 09:56 09/19/18 09:54 Wound Center Nurse 2 [Procedure/Treatment] #8 RIGHT POSTERIOR CALF -Time 09:54 -Correct Patient No -Correct Side, Site, Position No -Correct Procedure No -Procedure Performed No -Post Debridement Size (cm) - Length 0 -Post Debridement Size (cm) - Width 0 -Post Debridement Size (cm) - Depth 0 -Total Square Cm 0 -Wound/Ulcer Outcome Healed- Epithelialized -Ulcer Cleansing Rinsed/ Irrigated with Saline -Foul Odor after Cleansing No -Bioengineered Tissue No -Bleeding Controlled with Pressure -Offloading No -Treatment Response Procedure Tolerated Well #5 RIGHT MEDIAL CALF -Time 09:55 -Correct Patient Yes -Correct Side, Site, Position Yes -Correct Procedure Yes -Procedure Performed Yes -Type of Procedure Debridement -Clinical Debridement Subcutaneous -Post Debridement Size (cm) - Length 0.3 -Post Debridement Size (cm) - Width 1.2 -Post Debridement Size (cm) - Depth 0.1 -Total Square Cm 0.36 -Wound/Ulcer Outcome Not Healed -Ulcer Cleansing Rinsed/ Irrigated with Saline -Foul Odor after Cleansing No -Bioengineered Tissue No -Bleeding Controlled with Pressure -Offloading No -Treatment Response Procedure Tolerated Well #3 RIGHT POSTERIOR LATERAL LE CLUSTER -Correct Patient No -Correct Side, Site, Position No -Correct Procedure No -Procedure Performed No -Post Debridement Size (cm) - Length 0 -Post Debridement Size (cm) - Width 0 -Post Debridement Size (cm) - Depth 0 -Total Square Cm 0 -Wound/Ulcer Outcome Healed- Epithelialized [See Physician Procedure note for Specifics] Pain Scale: 0-10 Numeric [Pain] -Is Patient Pain Free? Yes Musculoskeletal: No Tenderness to Palpation of Joints or Extremities, Muscle Wasting Neurological: Sensory exam intact to light touch and pain Psych/Mental Status: Normal Affect, Appropriate Debridement Note Post-Debridement Measurements/Treatment WC - Nurse 2 - General Ulcer CM Notes Start: 08/29/18 09:22 Freq: Status: Active Protocol: Activity Type Activity Date Activity User E-Sign Co-Sign Detail Recorded Client Recorded Date Recorded By Document 08/29/18 09:55 TM [id number] 08/29/18 10:01 TM Document 09/05/18 12:26 JF [id number] 09/05/18 12:30 JF Document 09/12/18 09:39 DL [id number] 09/12/18 09:45 DL Document 09/19/18 09:54 JF [id number] 09/19/18 09:56 JF 08/29/18 09/05/18 09/12/18 09:55 12:26 09:39 Wound Center Nurse 2 #8 RIGHT POSTERIOR CALF -Time 09:55 12:27 09:39 -Correct Patient Yes Yes Yes -Correct Side, Site, Position Yes Yes Yes -Correct Procedure Yes Yes Yes -Procedure Performed Yes Yes Yes -Type of Procedure Debridement Debridement Debridement -Clinical Debridement Subcutaneous Subcutaneous Subcutaneous -Post Debridement Size (cm) - Length 9.6 8.1 1.8 -Post Debridement Size (cm) - Width 1.6 2.0 1 -Post Debridement Size (cm) - Depth 0.1 0.1 0.1 -Total Square Cm 15.36 16.20 1.8 -Wound/Ulcer Outcome Not Healed Not Healed Not Healed -Ulcer Cleansing Rinsed/ Rinsed/ Rinsed/ Irrigated with Irrigated with Irrigated with Saline Saline Saline -Foul Odor after Cleansing No No No -Bioengineered Tissue Yes Yes Yes -Type of bioengineered Tissue EPIFIX EPIFIX EPIFIX -Expiration Date 04/25/23 04/25/23 03/25/23 -Product Lot Number [id number] -Percent Used 33 100 100 -Saline Lot Number [id number] -Topical Lidocaine (%) 4 -Bleeding Controlled with Pressure Pressure Pressure -Offloading No No No -Treatment Response Procedure Procedure Procedure Tolerated Well Tolerated Well Tolerated Well #5 RIGHT MEDIAL CALF -Time 09:57 12:27 09:39 -Correct Patient Yes Yes Yes -Correct Side, Site, Position Yes Yes Yes -Correct Procedure Yes Yes Yes -Procedure Performed Yes Yes Yes -Type of Procedure Debridement Debridement Debridement -Clinical Debridement Subcutaneous Subcutaneous Subcutaneous -Post Debridement Size (cm) - Length 1.5 2.4 1.1 -Post Debridement Size (cm) - Width 2.6 1.0 1 -Post Debridement Size (cm) - Depth 0.1 0.1 0.1 -Total Square Cm 3.90 2.40 1.1 -Wound/Ulcer Outcome Not Healed Not Healed Not Healed -Ulcer Cleansing Rinsed/ Rinsed/ Rinsed/ Irrigated with Irrigated with Irrigated with Saline Saline Saline -Foul Odor after Cleansing No No No -Bioengineered Tissue Yes Yes Yes -Type of bioengineered Tissue EPIFIX EPIFIX EPIFIX -Expiration Date 04/25/23 04/25/23 03/25/23 -Product Lot Number [id number] -Percent Used 33 100 100 -Saline Lot Number [id number] -Topical Lidocaine (%) 4 -Bleeding Controlled with Pressure Pressure Pressure -Offloading No No No -Treatment Response Procedure Procedure Procedure Tolerated Well Tolerated Well Tolerated Well #4 Left LATERAL calf -Time 09:58 -Correct Patient Yes -Correct Side, Site, Position Yes -Correct Procedure Yes -Procedure Performed Yes -Post Debridement Size (cm) - Length 0 -Post Debridement Size (cm) - Width 0 -Post Debridement Size (cm) - Depth 0 -Total Square Cm 0 -Wound/Ulcer Outcome Healed- Epithelialized -Ulcer Cleansing Rinsed/ Irrigated with Saline -Foul Odor after Cleansing No -Bioengineered Tissue No -Bleeding Controlled with NA -Treatment Response Procedure Not Tolerated Well #3 RIGHT POSTERIOR LATERAL LE CLUSTER -Time 09:58 12:27 09:40 -Correct Patient Yes Yes No -Correct Side, Site, Position Yes Yes No -Correct Procedure Yes Yes No -Procedure Performed Yes Yes No -Type of Procedure Debridement Debridement -Clinical Debridement Subcutaneous Subcutaneous -Post Debridement Size (cm) - Length 3.1 3.5 0 -Post Debridement Size (cm) - Width 1.1 1 0 -Post Debridement Size (cm) - Depth 0.1 0.1 0 -Total Square Cm 3.41 3.5 0 -Wound/Ulcer Outcome Not Healed Not Healed Healed- Epithelialized -Ulcer Cleansing Rinsed/ Rinsed/ Rinsed/ Irrigated with Irrigated with Irrigated with Saline Saline Saline -Foul Odor after Cleansing No No No -Bioengineered Tissue Yes Yes No -Type of bioengineered Tissue EPIFIX EPIFIX -Expiration Date 04/25/23 04/25/23 -Product Lot Number [id number] -Percent Used 33 100 -Saline Lot Number [id number] -Topical Lidocaine (%) 4 -Bleeding Controlled with Pressure Pressure Pressure -Offloading No No No -Treatment Response Procedure Procedure Procedure Tolerated Well Tolerated Well Tolerated Well Pain Scale: 0-10 Numeric Is Patient Pain Free? Yes Yes Yes 18 09:54 Wound Center Nurse 2 #8 RIGHT POSTERIOR CALF -Time 09:54 -Correct Patient No -Correct Side, Site, Position No -Correct Procedure No -Procedure Performed No -Type of Procedure -Clinical Debridement -Post Debridement Size (cm) - Length 0 -Post Debridement Size (cm) - Width 0 -Post Debridement Size (cm) - Depth 0 -Total Square Cm 0 -Wound/Ulcer Outcome Healed- Epithelialized -Ulcer Cleansing Rinsed/ Irrigated with Saline -Foul Odor after Cleansing No -Bioengineered Tissue No -Type of bioengineered Tissue -Expiration Date -Product Lot Number -Percent Used -Saline Lot Number -Topical Lidocaine (%) -Bleeding Controlled with Pressure -Offloading No -Treatment Response Procedure Tolerated Well #5 RIGHT MEDIAL CALF -Time 09:55 -Correct Patient Yes -Correct Side, Site, Position Yes -Correct Procedure Yes -Procedure Performed Yes -Type of Procedure Debridement -Clinical Debridement Subcutaneous -Post Debridement Size (cm) - Length 0.3 -Post Debridement Size (cm) - Width 1.2 -Post Debridement Size (cm) - Depth 0.1 -Total Square Cm 0.36 -Wound/Ulcer Outcome Not Healed -Ulcer Cleansing Rinsed/ Irrigated with Saline -Foul Odor after Cleansing No -Bioengineered Tissue No -Type of bioengineered Tissue -Expiration Date -Product Lot Number -Percent Used -Saline Lot Number -Topical Lidocaine (%) -Bleeding Controlled with Pressure -Offloading No -Treatment Response Procedure Tolerated Well #4 Left LATERAL calf -Time -Correct Patient -Correct Side, Site, Position -Correct Procedure -Procedure Performed -Post Debridement Size (cm) - Length -Post Debridement Size (cm) - Width -Post Debridement Size (cm) - Depth -Total Square Cm -Wound/Ulcer Outcome -Ulcer Cleansing -Foul Odor after Cleansing -Bioengineered Tissue -Bleeding Controlled with -Treatment Response #3 RIGHT POSTERIOR LATERAL LE CLUSTER -Time -Correct Patient No -Correct Side, Site, Position No -Correct Procedure No -Procedure Performed No -Type of Procedure -Clinical Debridement -Post Debridement Size (cm) - Length 0 -Post Debridement Size (cm) - Width 0 -Post Debridement Size (cm) - Depth 0 -Total Square Cm 0 -Wound/Ulcer Outcome Healed- Epithelialized -Ulcer Cleansing -Foul Odor after Cleansing -Bioengineered Tissue -Type of bioengineered Tissue -Expiration Date -Product Lot Number -Percent Used -Saline Lot Number -Topical Lidocaine (%) -Bleeding Controlled with -Offloading -Treatment Response Pain Scale: 0-10 Numeric Is Patient Pain Free? Yes Wound debrided: medial leg Laterality: Right Type of Debridement: Excisional debridement Anesthesia Used: 5% Lidocaine Gel Depth: in the subcutaneous layer Percentage of wound debrided: 100 Instrument Used: #15 blade Tissue Removed: fibrous, devitalized subcutaneous, biofilm, slough Severity: Fat Layer Exposed Amount of bleeding with debridement: Mild Bleeding Controlled with: Pressure Patient tolerated procedure well Assessment/Plan Active Problems (Last Reviewed 08/08/18 @ 08:27 by ROBIN ThurmanC) Venous insufficiency (chronic) (peripheral) (Chronic) Calciphylaxis (Chronic) Ulcer of right lower extremity with fat layer exposed (Chronic) Assessment: Right leg ulcer with fat layer exposed, chronic and noninfected (lateral healed and medial improving). Delayed healing. venous insufficiency. Malnutrition suspected. Lower extremity pain. Multiple comorbidities noted. Calciphylaxis Plan: She was evaluated today and her care plan was discussed. Subcutaneous excisional debridement was performed to the right leg as noted in the clinical panel. Her left leg ulcer sites have completely healed. Verbal consent was obtained for advanced wound care product epifix and this was applied to the right leg ulcer medial site. She is approved for application of advanced wound care product, epi fix today. The indications plan application and anticipated healing and management were discussed. This was applied according to standard protocol after verbal consent was obtained to the right posterior leg and the left lateral leg. She tolerated this well. To keep clean and dry and intact until follow-up next week. This was secured in place with Steri-Strips and wound veil. Wound veil covered medial right leg ulcer only. I recommend continued serial application of advanced wound care products until full closure was achieved. She had a follow up with Dr. Pelaez for evaluation of her arterial Doppler exam which appeared to have distal perfusion. A biopsy of the leg skin was previously obtained and the results were reviewed today and will be placed in her chart. I reiterated the importance of taking pressure off of these wound sites. He has completed a course of sodium thiosulfate for treatment of calciphylaxis as prescribed. She will continue on a low-dose prednisone and further calciphylaxis for sarcoidosis workup with her body former, Dr. Almonte. It is also noted she is going to schedule for a lung biopsy for workup of sarcoidosis nodule versus other mass growth after September. I answered all of her questions. To return to the wound healing center 1 week or call sooner if there are any questions or concerns.
== END 2018-09-24 23:59 ==
LOC: WC 09:30
PROVIDERS: Family Provider Internal Medicine; PCP Internal Medicine; Referring Provider Family Medicine; Visit Provider Podiatrist
DX: I87.2 Venous insufficiency (chronic) (peripheral) (principal); L97.812 Non-pressure chronic ulcer of other part of right lower leg with fat layer exposed; E83.59 Other disorders of calcium metabolism
CPT/HCPCS: 11042; 15271; Q4131

== ENCOUNTER 2018-09-26 09:11 | Outpatient (RCR) | payer MEDICARE, SELFPAY ==
[2018-09-25 00:39] VITALS: BP 146/80; PULSE 90; RESP 18; TEMP 36.3
[2018-09-26 09:42] VITALS: BP 133/86; PULSE 101; RESP 18; TEMP 36.3; BMI 35.4
--- NOTE | 2018-09-26 10:37 | PN.PCM_ITS ---
(1) Venous insufficiency (chronic) (peripheral) Status: Chronic Current Visit: Yes Code(s): I87.2 - Venous insufficiency (chronic) (peripheral) (2) Calciphylaxis Status: Chronic Current Visit: Yes Code(s): E83.59 - Other disorders of calcium metabolism (3) Ulcer of right lower extremity with fat layer exposed Status: Resolved Current Visit: Yes Code(s): L97.912 - Non-pressure chronic ulcer of unspecified part of right lower leg with fat layer exposed Type of Wound Chief Complaint: Ulcers right leg healed History of Wound: Di is a 72 year old female that returns for follow up of bilateral leg ulcers. She had previous advanced wound care products and multiple debridements performed. She denies pain. She denies pain, fever, chill, nausea, vomiting. She has been treated medically for calciphylaxis. She is now only taking 2.5 mg of prednisone daily. She denies drainage the last 4 days and thinks the ulcer site has healed. She is scheduled to see her panelboard assembler, Dr. Almonte, tomorrow. Progress of Wound: Improving - Physical Exam Vital Signs Temp Pulse Resp BP 97.3 F L 101 H 18 133/86 H 09/26/18 09:42 09/26/18 09:42 09/26/18 09:42 09/26/18 09:42 General: Alert, Oriented x3, Cooperative Extremities: No cyanosis, Capillary Refill Less than 3 Seconds, No Calf Tenderness - Negative Kimberly and Layton sign bilateral, Edema - Bilateral lower extremity varicosities, Peripheral Pulses Normal Skin: Ulcer/ Wound - Full epithelialization is noted in the ulcer site is healed. There is no purulence, erythema, streaking, odor, or infection. There is some minor dermatitis changes to the anterior right leg. Wound Measurements and Assessment WC - Nurse 1 - General Ulcer Measurement Start: 09/26/18 09:32 Freq: Status: Active Protocol: Activity Type Activity Date Activity User E-Sign Co-Sign Detail Recorded Client Recorded Date Recorded By Document 09/26/18 09:42 DV [id number] 09/26/18 09:52 DV 09/26/18 09:42 Wound Center Nurse 1 [Ulcer Assessment] #5 RIGHT MEDIAL CALF -Combined with other wound No -Current Size (cm) - Length 0.1 -Current Size (cm) - Width 0.1 -Current Size (cm) - Depth 0.1 -Total Square Cm 0.01 -Date of Last Picture (Recall this 09/26/18 field) -Photo Taken Yes -Epithelialization Small 1-33% -Tunneling No -Undermining/Tunneling No -Circular Undermining No -Classification - Thickness Full Thickness without Exposed Support Structure -Exudate Amt None Present (0 %) -Wound Margin Flat & Intact -Granulation Amt None Present (0 %) -Granulation Quality N/A -Slough/Fibrin No -Necrosis Amt None Present (0 %) -Structure Exposed N/A -Texture (Gabriella-wound Skin Appearance) Assessed Scarring -Moisture (Gabriella-wound Skin Appearance No Abnormality ) Assessed -Color (Gabriella-wound Skin Appearance) No Abnormality Assessed -Temperature (Gabriella-wound Skin No Abnormality Appearance) (Pt Warm) -Tenderness on Palpation (Gabriella-wound No Skin Appearance) -Foul Odor after Cleansing No WC - Nurse 2 - General Ulcer CM Notes Start: 09/26/18 09:32 Freq: Status: Active Protocol: Activity Type Activity Date Activity User E-Sign Co-Sign Detail Recorded Client Recorded Date Recorded By Document 09/26/18 10: JF [id number] 09/26/18 10:03 09/26/18 10:01 Wound Center Nurse 2 [Procedure/Treatment] -Correct Patient No -Correct Side, Site, Position No -Correct Procedure No -Procedure Performed No -Post Debridement Size (cm) - Length 0 -Post Debridement Size (cm) - Width 0 -Post Debridement Size (cm) - Depth 0 -Total Square Cm 0 -Wound/Ulcer Outcome Healed- Epithelialized [See Physician Procedure note for Specifics] Pain Scale: 0-10 Numeric [Pain] -Is Patient Pain Free? Yes Musculoskeletal: No Tenderness to Palpation of Joints or Extremities, Muscle Wasting, - - Compartments remain soft to palpate bilateral lower extremities Neurological: Sensory exam intact to light touch and pain Psych/Mental Status: Normal Affect, Appropriate Debridement Note Post-Debridement Measurements/Treatment WC - Nurse 2 - General Ulcer CM Notes Start: 09/26/18 09:32 Freq: Status: Active Protocol: Activity Type Activity Date Activity User E-Sign Co-Sign Detail Recorded Client Recorded Date Recorded By Document 09/26/18 10: JF [id number] 09/26/18 10:03 09/26/18 10:01 Wound Center Nurse 2 #5 RIGHT MEDIAL CALF -Correct Patient No -Correct Side, Site, Position No -Correct Procedure No -Procedure Performed No -Post Debridement Size (cm) - Length 0 -Post Debridement Size (cm) - Width 0 -Post Debridement Size (cm) - Depth 0 -Total Square Cm 0 -Wound/Ulcer Outcome Healed- Epithelialized Pain Scale: 0-10 Numeric Is Patient Pain Free? Yes No debridement was completed today - The ulcer site has healed right leg Assessment/Plan Active Problems (Last Reviewed 08/08/18 @ 08:27 by Coleen Soto, JAC-C) Venous insufficiency (chronic) (peripheral) (Chronic) Calciphylaxis (Chronic) Assessment: Right leg ulcers healed. venous insufficiency. Lower extremity pain. Multiple comorbidities noted. Calciphylaxis Plan: She was evaluated today and her care plan was discussed. No debridement was performed today because the ulcer site has healed. To discontinue all dressing care. To moisturize skin with Aquaphor. To monitor for return of calciphylaxis soft tissue changes and oral prednisone. To follow-up with her panelboard assembler as scheduled tomorrow. To continue with compression dressing; she has compression stockings with zippers. To elevate limbs at rest and to avoid idle standing or sitting. She is discharged from the wound healing center at this time and has done very well. To follow-up with the foot and ankle Center as needed.
== END 2018-10-25 23:59 ==
LOC: WC 09:11
PROVIDERS: Family Provider Internal Medicine; PCP Internal Medicine; Referring Provider Family Medicine; Visit Provider Podiatrist
DX: Z09 Encounter for follow-up examination after completed treatment for conditions other than malignant neoplasm (principal); I87.2 Venous insufficiency (chronic) (peripheral); E83.59 Other disorders of calcium metabolism
CPT/HCPCS: 99212; G0463

== ENCOUNTER → 2018-09-27 10:42 | Outpatient (CLI) | payer MEDICARE, SELFPAY ==
[2018-09-05 10:25] VITALS: BMI 35.4
[2018-09-26 09:42] VITALS: BMI 35.4
[2018-09-27 12:42] LABS: PTHIN 34.8 pg/mL (18.4-80.1)
[2018-09-27 12:49] LABS: Albumin, Serum 3.7 g/dL (3.2-5.0); BUN 31 mg/dL (7-18); BUN/Creat Ratio 27.9 RATIO (10-20); Chloride 105 mmol/L (98-107); Creatinine, Serum 1.11 mg/dL (0.55-1.02); EST Glomerular Filtration Rate 51 mL/min (>60); Est Glom Filt Rate - Afr Amer 62 mL/min (>60); Glucose 120 mg/dL (74-106); Phosphorus 3.2 mg/dL (2.5-4.9); Sodium Level 138 mmol/L (136-145)
[2018-10-01 16:44] LABS: Vitamin D 1,25-Dihydroxy 39.2 pg/mL (19.9-79.3)
== END ==
PROVIDERS: Family Provider Internal Medicine; PCP Internal Medicine; Visit Provider Internal Medicine Nephrology
DX: N18.3 Chronic kidney disease, stage 3 (moderate) (principal); E67.3 Hypervitaminosis D; E83.59 Other disorders of calcium metabolism
CPT/HCPCS: 36415; 80069; 82652; 83970

== ENCOUNTER 2018-11-21 09:30 | Outpatient (RCR) | payer MEDICARE, SELFPAY ==
[2018-10-08 11:23] VITALS: BMI 35.4
[2018-10-26 01:02] VITALS: BP 133/86; PULSE 101; RESP 18; TEMP 36.3
[2018-11-07 09:01] VITALS: BP 147/81; PULSE 85; RESP 18; TEMP 36.1; BMI 35.4
--- NOTE | 2018-11-07 09:50 | PCM.WC.PN ---
(1) Ulcer of left lower extremity with fat layer exposed Status: Chronic Current Visit: Yes Code(s): L97.922 - Non-pressure chronic ulcer of unspecified part of left lower leg with fat layer exposed (2) Chronic kidney disease, stage 3 Status: Chronic Current Visit: Yes Code(s): N18.3 - Chronic kidney disease, stage 3 (moderate) (3) Calciphylaxis Status: Chronic Current Visit: Yes Code(s): E83.59 - Other disorders of calcium metabolism Type of Wound Date of Service: 11/07/18 Chief Complaint: Ulcers right leg healed History of Wound: Di is a 72 year old female that sustained a new ulcer to the left leg approximately 3 weeks ago. She relates some yellowish drainage. She denies redness or odors or significant pain. She denies trauma or recent flareup of swelling. She has been treated medically for calciphylaxis. She is with her today. Progress of Wound: New left leg ulcer - Physical Exam Vital Signs Temp Pulse Resp BP 97 F L 85 18 147/81 H 11/07/18 09:01 11/07/18 09:01 11/07/18 09:01 11/07/18 09:01 General: Alert, Oriented x3, Cooperative HEENT: Atraumatic Extremities: No cyanosis, Capillary Refill Less than 3 Seconds, No Calf Tenderness - Negative Kimberly and Layton sign bilateral, Diminished Peripheral Pulses, Edema - Moderate bilateral lower extremities with varicosities and telangiectasias noted Skin: Ulcer/ Wound - No purulence, erythema, streaking, odor, or acute infection. There is some deeper probing noted however this is not go to the fascial or bone layer. There is no purulence on expression today. The wound bed is fibrous and granular. The peripheral skin is hairless and atrophic. There is no eschar. Wound Measurements and Assessment WC - Nurse 1 - General Ulcer Measurement Start: 11/07/18 09:01 Freq: Status: Active Protocol: Activity Type Activity Date Activity User E-Sign Co-Sign Detail Recorded Client Recorded Date Recorded By Document 11/07/18 09:01 RB [id number] 11/07/18 09:11 RB 11/07/18 09:01 Wound Center Nurse 1 [Ulcer Assessment] 9. L post calf -Combined with other wound No -Current Size (cm) - Length 0.4 -Current Size (cm) - Width 0.2 -Current Size (cm) - Depth 0.4 -Total Square Cm 0.08 -Photo Taken Yes -Tunneling No -Undermining/Tunneling No -Circular Undermining No -Exudate Amt Small -Exudate Type Serosanguineous -Wound Margin Thickened & Rolled Under -Granulation Amt Medium (34-66%) -Granulation Quality [place] -Slough/Fibrin Yes -Necrosis Amt Medium (34-66%) -Necrotic Tissue Type Adherent Slough -Structure Exposed N/A -Texture (Gabriella-wound Skin Appearance) Assessed -Moisture (Gabriella-wound Skin Appearance Assessed ) -Color (Gabriella-wound Skin Appearance) Assessed Erythema -Temperature (Gabriella-wound Skin No Abnormality Appearance) (Pt Warm) -Tenderness on Palpation (Gabriella-wound No Skin Appearance) -Ulcer Cleansing Rinsed/ Irrigated with Saline -Foul Odor after Cleansing No -Anesthetic Used 5% Lidocaine Gel [Edema Assessment] -Lower Limb Edema Present Yes -Right Calf (cm) 35 -Right Ankle (cm) 22.3 -Left Calf (cm) 34.5 -Left Ankle (cm) 23.2 WC - Nurse 2 - General Ulcer CM Notes Start: 11/07/18 09:01 Freq: Status: Active Protocol: Activity Type Activity Date Activity User E-Sign Co-Sign Detail Recorded Client Recorded Date Recorded By Document 11/07/18 09:28 BJ [id number] 11/07/18 09:29 BJ 11/07/18 09:28 Wound Center Nurse 2 [Procedure/Treatment] 9. L post calf -Time 09:28 -Correct Patient Yes -Correct Side, Site, Position Yes -Correct Procedure Yes -Procedure Performed Yes -Type of Procedure Debridement -Clinical Debridement Subcutaneous -Post Debridement Size (cm) - Length 0.4 -Post Debridement Size (cm) - Width 0.3 -Post Debridement Size (cm) - Depth 0.4 -Total Square Cm 0.12 -Wound/Ulcer Outcome Not Healed -Ulcer Cleansing Rinsed/ Irrigated with Saline -Foul Odor after Cleansing No -Bioengineered Tissue No -Bleeding Controlled with Pressure -Offloading No -Treatment Response Procedure Tolerated Well [See Physician Procedure note for Specifics] Pain Scale: 0-10 Numeric [Pain] -Is Patient Pain Free? Yes Musculoskeletal: No Tenderness to Palpation of Joints or Extremities, Muscle Wasting Neurological: Sensory exam intact to light touch and pain Psych/Mental Status: Normal Affect, Appropriate Debridement Note Post-Debridement Measurements/Treatment WC - Nurse 2 - General Ulcer CM Notes Start: 11/07/18 09:01 Freq: Status: Active Protocol: Activity Type Activity Date Activity User E-Sign Co-Sign Detail Recorded Client Recorded Date Recorded By Document 11/07/18 09:28 [id number] 11/07/18 09:29 BJ 11/07/18 09:28 Wound Center Nurse 2 9. L post calf -Time 09:28 -Correct Patient Yes -Correct Side, Site, Position Yes -Correct Procedure Yes -Procedure Performed Yes -Type of Procedure Debridement -Clinical Debridement Subcutaneous -Post Debridement Size (cm) - Length 0.4 -Post Debridement Size (cm) - Width 0.3 -Post Debridement Size (cm) - Depth 0.4 -Total Square Cm 0.12 -Wound/Ulcer Outcome Not Healed -Ulcer Cleansing Rinsed/ Irrigated with Saline -Foul Odor after Cleansing No -Bioengineered Tissue No -Bleeding Controlled with Pressure -Offloading No -Treatment Response Procedure Tolerated Well Pain Scale: 0-10 Numeric Is Patient Pain Free? Yes Wound debrided: leg Laterality: Left Type of Debridement: Excisional debridement Anesthesia Used: 5% Lidocaine Gel Depth: in the subcutaneous layer Percentage of wound debrided: 100 Instrument Used: #15 blade Tissue Removed: fibrous, devitalized subcutaneous, biofilm, slough Severity: Fat Layer Exposed Amount of bleeding with debridement: Mild Bleeding Controlled with: Pressure Patient tolerated procedure well Assessment/Plan Active Problems (Last Reviewed 10/08/18 @ 08:36 by Maggy Dukes) Chronic kidney disease, stage 3 (Chronic) Ulcer of left lower extremity with fat layer exposed (Chronic) Calciphylaxis (Chronic) Assessment: Left leg ulcer with fat layer exposed. venous insufficiency. Lower extremity pain. Multiple comorbidities noted. Calciphylaxis Plan: She was evaluated today and her care plan was discussed. Debridement was performed as noted in the clinical panel. A wicked Aquacel Ag dressing was applied; to change daily. To moisturize adjacent skin with Aquaphor. To monitor for return of calciphylaxis soft tissue changes and oral prednisone. To follow-up with her bacteriology technician as scheduled. To continue with compression dressing; she has compression stockings with zippers. To elevate limbs at rest and to avoid idle standing or sitting. She was reassured no local signs of infection are noted to monitor closely. I do not recommend traditional nutritional supplementation due to her calciphylaxis condition. To follow-up in 1 week at the wound healing center or call sooner if she has any questions or concerns. I answered all of her questions.
--- NOTE | 2018-11-07 09:55 | PN.PCM_ITS ---
(1) Ulcer of left lower extremity with fat layer exposed Status: Chronic Current Visit: Yes Code(s): L97.922 - Non-pressure chronic ulcer of unspecified part of left lower leg with fat layer exposed (2) Chronic kidney disease, stage 3 Status: Chronic Current Visit: Yes Code(s): N18.3 - Chronic kidney disease, stage 3 (moderate) (3) Calciphylaxis Status: Chronic Current Visit: Yes Code(s): E83.59 - Other disorders of calcium metabolism Type of Wound Date of Service: 11/07/18 Chief Complaint: Ulcers right leg healed History of Wound: Di is a 72 year old female that sustained a new ulcer to the left leg approximately 3 weeks ago. She relates some yellowish drainage. She denies redness or odors or significant pain. She denies trauma or recent flareup of swelling. She has been treated medically for calciphylaxis. She is with her today. Progress of Wound: New left leg ulcer - Physical Exam Vital Signs Temp Pulse Resp BP 97 F L 85 18 147/81 H 11/07/18 09:01 11/07/18 09:01 11/07/18 09:01 11/07/18 09:01 General: Alert, Oriented x3, Cooperative HEENT: Atraumatic Extremities: No cyanosis, Capillary Refill Less than 3 Seconds, No Calf Tenderness - Negative Kimberly and Layton sign bilateral, Diminished Peripheral Pulses, Edema - Moderate bilateral lower extremities with varicosities and telangiectasias noted Skin: Ulcer/ Wound - No purulence, erythema, streaking, odor, or acute infection. There is some deeper probing noted however this is not go to the fascial or bone layer. There is no purulence on expression today. The wound bed is fibrous and granular. The peripheral skin is hairless and atrophic. There is no eschar. Wound Measurements and Assessment WC - Nurse 1 - General Ulcer Measurement Start: 11/07/18 09:01 Freq: Status: Active Protocol: Activity Type Activity Date Activity User E-Sign Co-Sign Detail Recorded Client Recorded Date Recorded By Document 11/07/18 09:01 RB [id number] 11/07/18 09:11 RB 11/07/18 09:01 Wound Center Nurse 1 [Ulcer Assessment] 9. L post calf -Combined with other wound No -Current Size (cm) - Length 0.4 -Current Size (cm) - Width 0.2 -Current Size (cm) - Depth 0.4 -Total Square Cm 0.08 -Photo Taken Yes -Tunneling No -Undermining/Tunneling No -Circular Undermining No -Exudate Amt Small -Exudate Type Serosanguineous -Wound Margin Thickened & Rolled Under -Granulation Amt Medium (34-66%) -Granulation Quality [place] -Slough/Fibrin Yes -Necrosis Amt Medium (34-66%) -Necrotic Tissue Type Adherent Slough -Structure Exposed N/A -Texture (Gabriella-wound Skin Appearance) Assessed -Moisture (Gabriella-wound Skin Appearance Assessed ) -Color (Gabriella-wound Skin Appearance) Assessed Erythema -Temperature (Gabriella-wound Skin No Abnormality Appearance) (Pt Warm) -Tenderness on Palpation (Gabriella-wound No Skin Appearance) -Ulcer Cleansing Rinsed/ Irrigated with Saline -Foul Odor after Cleansing No -Anesthetic Used 5% Lidocaine Gel [Edema Assessment] -Lower Limb Edema Present Yes -Right Calf (cm) 35 -Right Ankle (cm) 22.3 -Left Calf (cm) 34.5 -Left Ankle (cm) 23.2 WC - Nurse 2 - General Ulcer CM Notes Start: 11/07/18 09:01 Freq: Status: Active Protocol: Activity Type Activity Date Activity User E-Sign Co-Sign Detail Recorded Client Recorded Date Recorded By Document 11/07/18 09:28 BJ [id number] 11/07/18 09:29 BJ 11/07/18 09:28 Wound Center Nurse 2 [Procedure/Treatment] 9. L post calf -Time 09:28 -Correct Patient Yes -Correct Side, Site, Position Yes -Correct Procedure Yes -Procedure Performed Yes -Type of Procedure Debridement -Clinical Debridement Subcutaneous -Post Debridement Size (cm) - Length 0.4 -Post Debridement Size (cm) - Width 0.3 -Post Debridement Size (cm) - Depth 0.4 -Total Square Cm 0.12 -Wound/Ulcer Outcome Not Healed -Ulcer Cleansing Rinsed/ Irrigated with Saline -Foul Odor after Cleansing No -Bioengineered Tissue No -Bleeding Controlled with Pressure -Offloading No -Treatment Response Procedure Tolerated Well [See Physician Procedure note for Specifics] Pain Scale: 0-10 Numeric [Pain] -Is Patient Pain Free? Yes Musculoskeletal: No Tenderness to Palpation of Joints or Extremities, Muscle Wasting Neurological: Sensory exam intact to light touch and pain Psych/Mental Status: Normal Affect, Appropriate Debridement Note Post-Debridement Measurements/Treatment WC - Nurse 2 - General Ulcer CM Notes Start: 11/07/18 09:01 Freq: Status: Active Protocol: Activity Type Activity Date Activity User E-Sign Co-Sign Detail Recorded Client Recorded Date Recorded By Document 11/07/18 09:28 [id number] 11/07/18 09:29 BJ 11/07/18 09:28 Wound Center Nurse 2 9. L post calf -Time 09:28 -Correct Patient Yes -Correct Side, Site, Position Yes -Correct Procedure Yes -Procedure Performed Yes -Type of Procedure Debridement -Clinical Debridement Subcutaneous -Post Debridement Size (cm) - Length 0.4 -Post Debridement Size (cm) - Width 0.3 -Post Debridement Size (cm) - Depth 0.4 -Total Square Cm 0.12 -Wound/Ulcer Outcome Not Healed -Ulcer Cleansing Rinsed/ Irrigated with Saline -Foul Odor after Cleansing No -Bioengineered Tissue No -Bleeding Controlled with Pressure -Offloading No -Treatment Response Procedure Tolerated Well Pain Scale: 0-10 Numeric Is Patient Pain Free? Yes Wound debrided: leg Laterality: Left Type of Debridement: Excisional debridement Anesthesia Used: 5% Lidocaine Gel Depth: in the subcutaneous layer Percentage of wound debrided: 100 Instrument Used: #15 blade Tissue Removed: fibrous, devitalized subcutaneous, biofilm, slough Severity: Fat Layer Exposed Amount of bleeding with debridement: Mild Bleeding Controlled with: Pressure Patient tolerated procedure well Assessment/Plan Active Problems (Last Reviewed 10/08/18 @ 08:36 by Maggy Dukes) Chronic kidney disease, stage 3 (Chronic) Ulcer of left lower extremity with fat layer exposed (Chronic) Calciphylaxis (Chronic) Assessment: Left leg ulcer with fat layer exposed. venous insufficiency. Lower extremity pain. Multiple comorbidities noted. Calciphylaxis Plan: She was evaluated today and her care plan was discussed. Debridement was performed as noted in the clinical panel. A wicked Aquacel Ag dressing was applied; to change daily. To moisturize adjacent skin with Aquaphor. To monitor for return of calciphylaxis soft tissue changes and oral prednisone. To follow-up with her nail tech as scheduled. To continue with compression dressing; she has compression stockings with zippers. To elevate limbs at rest and to avoid idle standing or sitting. She was reassured no local signs of infection are noted to monitor closely. I do not recommend traditional nutritional supplementation due to her calciphylaxis condition. To follow-up in 1 week at the wound healing center or call sooner if she has any questions or concerns. I answered all of her questions.
[2018-11-14 08:51] VITALS: BP 127/74; PULSE 94; RESP 18; TEMP 36.4; BMI 35.4
--- NOTE | 2018-11-14 09:09 | PCM.WC.PN ---
(1) Ulcer of left lower extremity with fat layer exposed Status: Chronic Current Visit: Yes Code(s): L97.922 - Non-pressure chronic ulcer of unspecified part of left lower leg with fat layer exposed (2) Chronic kidney disease, stage 3 Status: Chronic Current Visit: Yes Code(s): N18.3 - Chronic kidney disease, stage 3 (moderate) (3) Calciphylaxis Status: Chronic Current Visit: Yes Code(s): E83.59 - Other disorders of calcium metabolism Type of Wound Date of Service: 11/14/18 Chief Complaint: left leg ulcer History of Wound: Di is a 73 year old female follows for left leg ulcer. She relates continued drainage. She has been treated medically for calciphylaxis. She has follow up with Dr. Almonte next month with updated labs. She denies odor. She is with her today. Progress of Wound: stable - Physical Exam Vital Signs Temp Pulse Resp BP 97.5 F L 94 18 127/74 H 11/14/18 08:51 11/14/18 08:51 11/14/18 08:51 11/14/18 08:51 General: Alert, Oriented x3, Cooperative Extremities: No cyanosis, Capillary Refill Less than 3 Seconds, No Calf Tenderness, Diminished Peripheral Pulses, Edema - varicosities left leg Skin: Ulcer/ Wound - no purulence, no erythema, no streaking, no necrosis, no infection. there is fibrinous drainage noted on removed dressing packing. adjacent skin is hairless and atrophic Wound Measurements and Assessment WC - Nurse 1 - General Ulcer Measurement Start: 11/07/18 09:01 Freq: Status: Active Protocol: Activity Type Activity Date Activity User E-Sign Co-Sign Detail Recorded Client Recorded Date Recorded By Document 11/14/18 08:51 DL [id number] 11/14/18 08:55 DL 11/14/18 08:51 Wound Center Nurse 1 [Ulcer Assessment] 9. L post calf -Current Size (cm) - Length 0.4 -Current Size (cm) - Width 0.6 -Current Size (cm) - Depth 0.7 -Total Square Cm 0.24 -Photo Taken No -Exudate Amt Small -Exudate Type Serosanguineous -Wound Margin Distinct, Outline Attached -Granulation Amt Medium (34-66%) -Granulation Quality [place] -Necrosis Amt Medium (34-66%) -Necrotic Tissue Type Adherent Slough -Structure Exposed N/A -Texture (Gabriella-wound Skin Appearance) Scarring -Moisture (Gabriella-wound Skin Appearance No Abnormality ) -Color (Gabriella-wound Skin Appearance) Hemosiderin Staining Rubor -Temperature (Gabriella-wound Skin No Abnormality Appearance) (Pt Warm) -Tenderness on Palpation (Gabriella-wound No Skin Appearance) -Ulcer Cleansing Rinsed/ Irrigated with Saline -Foul Odor after Cleansing No -Anesthetic Used 5% Lidocaine Gel [Edema Assessment] -Left Calf (cm) 33.2 -Left Ankle (cm) 21 WC - Nurse 2 - General Ulcer CM Notes Start: 11/07/18 09:01 Freq: Status: Active Protocol: Activity Type Activity Date Activity User E-Sign Co-Sign Detail Recorded Client Recorded Date Recorded By Document 11/14/18 09:05 DL [id number] 11/14/18 09:09 DL 11/14/18 09:05 Wound Center Nurse 2 [Procedure/Treatment] 9. L post calf -Time 09:06 -Correct Patient Yes -Correct Side, Site, Position Yes -Correct Procedure Yes -Procedure Performed Yes -Type of Procedure Debridement -Clinical Debridement Subcutaneous -Post Debridement Size (cm) - Length 0.7 -Post Debridement Size (cm) - Width 0.4 -Post Debridement Size (cm) - Depth 0.7 -Total Square Cm 0.28 -Wound/Ulcer Outcome Not Healed -Ulcer Cleansing Rinsed/ Irrigated with Saline -Foul Odor after Cleansing No -Bioengineered Tissue No -Bleeding Controlled with Pressure -Offloading No -Treatment Response Procedure Tolerated Well [See Physician Procedure note for Specifics] Pain Scale: 0-10 Numeric [Pain] -Is Patient Pain Free? Yes Musculoskeletal: No Tenderness to Palpation of Joints or Extremities, Muscle Wasting Neurological: Sensory exam intact to light touch and pain Psych/Mental Status: Normal Affect, Appropriate Debridement Note Post-Debridement Measurements/Treatment - Nurse 2 - General Ulcer CM Notes Start: 11/07/18 09:01 Freq: Status: Active Protocol: Activity Type Activity Date Activity User E-Sign Co-Sign Detail Recorded Client Recorded Date Recorded By Document 11/07/18 09:28 JF [id number] 11/07/18 09:29 JF Document 11/14/18 09:05 DL [id number] 11/14/18 09:09 DL 11/07/18 11/14/18 09:28 09:05 Wound Center Nurse 2 9. L post calf -Time 09: 09:06 -Correct Patient Yes Yes -Correct Side, Site, Position Yes Yes -Correct Procedure Yes Yes -Procedure Performed Yes Yes -Type of Procedure Debridement Debridement -Clinical Debridement Subcutaneous Subcutaneous -Post Debridement Size (cm) - Length 0.4 0.7 -Post Debridement Size (cm) - Width 0.3 0.4 -Post Debridement Size (cm) - Depth 0.4 0.7 -Total Square Cm 0.12 0.28 -Wound/Ulcer Outcome Not Healed Not Healed -Ulcer Cleansing Rinsed/ Rinsed/ Irrigated with Irrigated with Saline Saline -Foul Odor after Cleansing No No -Bioengineered Tissue No No -Bleeding Controlled with Pressure Pressure -Offloading No No -Treatment Response Procedure Procedure Tolerated Well Tolerated Well Pain Scale: 0-10 Numeric Is Patient Pain Free? Yes Yes Wound debrided: leg Laterality: Left Type of Debridement: Excisional debridement Anesthesia Used: 5% Lidocaine Gel Depth: in the subcutaneous layer Percentage of wound debrided: 100 Instrument Used: #15 blade Tissue Removed: fibrous, devitalized subcutaneous, biofilm, slough Severity: Fat Layer Exposed Amount of bleeding with debridement: Mild Bleeding Controlled with: Pressure Patient tolerated procedure well Assessment/Plan Active Problems (Last Reviewed 10/08/18 @ 08:36 by Maggy Dukes) Chronic kidney disease, stage 3 (Chronic) Ulcer of left lower extremity with fat layer exposed (Chronic) Calciphylaxis (Chronic) Assessment: Left leg ulcer with fat layer exposed. venous insufficiency. Lower extremity pain. Multiple comorbidities noted. Calciphylaxis Plan: She was evaluated today and her care plan was discussed. Debridement was performed as noted in the clinical panel. A wicked Aquacel Ag dressing was applied; to change daily. To moisturize adjacent skin with Aquaphor. To monitor for return of calciphylaxis soft tissue changes and oral prednisone. To follow-up with her systems analyst developer as scheduled. To continue with compression dressing; she has compression stockings with zippers. To elevate limbs at rest and to avoid idle standing or sitting. She was reassured no local signs of infection are noted to monitor closely. I do not recommend traditional nutritional supplementation due to her calciphylaxis condition. To follow-up in 1 week at the wound healing center or call sooner if she has any questions or concerns. I answered all of her questions.
--- NOTE | 2018-11-14 09:14 | PN.PCM_ITS ---
(1) Ulcer of left lower extremity with fat layer exposed Status: Chronic Current Visit: Yes Code(s): L97.922 - Non-pressure chronic ulcer of unspecified part of left lower leg with fat layer exposed (2) Chronic kidney disease, stage 3 Status: Chronic Current Visit: Yes Code(s): N18.3 - Chronic kidney disease, stage 3 (moderate) (3) Calciphylaxis Status: Chronic Current Visit: Yes Code(s): E83.59 - Other disorders of calcium metabolism Type of Wound Date of Service: 11/14/18 Chief Complaint: left leg ulcer History of Wound: Di is a 73 year old female follows for left leg ulcer. She relates continued drainage. She has been treated medically for calciphylaxis. She has follow up with Dr. Almonte next month with updated labs. She denies odor. She is with her today. Progress of Wound: stable - Physical Exam Vital Signs Temp Pulse Resp BP 97.5 F L 94 18 127/74 H 11/14/18 08:51 11/14/18 08:51 11/14/18 08:51 11/14/18 08:51 General: Alert, Oriented x3, Cooperative Extremities: No cyanosis, Capillary Refill Less than 3 Seconds, No Calf Tenderness, Diminished Peripheral Pulses, Edema - varicosities left leg Skin: Ulcer/ Wound - no purulence, no erythema, no streaking, no necrosis, no infection. there is fibrinous drainage noted on removed dressing packing. adjacent skin is hairless and atrophic Wound Measurements and Assessment WC - Nurse 1 - General Ulcer Measurement Start: 11/07/18 09:01 Freq: Status: Active Protocol: Activity Type Activity Date Activity User E-Sign Co-Sign Detail Recorded Client Recorded Date Recorded By Document 11/14/18 08:51 DL [id number] 11/14/18 08:55 DL 11/14/18 08:51 Wound Center Nurse 1 [Ulcer Assessment] 9. L post calf -Current Size (cm) - Length 0.4 -Current Size (cm) - Width 0.6 -Current Size (cm) - Depth 0.7 -Total Square Cm 0.24 -Photo Taken No -Exudate Amt Small -Exudate Type Serosanguineous -Wound Margin Distinct, Outline Attached -Granulation Amt Medium (34-66%) -Granulation Quality Red -Necrosis Amt Medium (34-66%) -Necrotic Tissue Type Adherent Slough -Structure Exposed N/A -Texture (Gabriella-wound Skin Appearance) Scarring -Moisture (Gabriella-wound Skin Appearance No Abnormality ) -Color (Gabriella-wound Skin Appearance) Hemosiderin Staining Rubor -Temperature (Gabriella-wound Skin No Abnormality Appearance) (Pt Warm) -Tenderness on Palpation (Gabriella-wound No Skin Appearance) -Ulcer Cleansing Rinsed/ Irrigated with Saline -Foul Odor after Cleansing No -Anesthetic Used 5% Lidocaine Gel [Edema Assessment] -Left Calf (cm) 33.2 -Left Ankle (cm) 21 WC - Nurse 2 - General Ulcer CM Notes Start: 11/07/18 09:01 Freq: Status: Active Protocol: Activity Type Activity Date Activity User E-Sign Co-Sign Detail Recorded Client Recorded Date Recorded By Document 11/14/18 09:05 DL [id number] 11/14/18 09:09 DL 11/14/18 09:05 Wound Center Nurse 2 [Procedure/Treatment] 9. L post calf -Time 09:06 -Correct Patient Yes -Correct Side, Site, Position Yes -Correct Procedure Yes -Procedure Performed Yes -Type of Procedure Debridement -Clinical Debridement Subcutaneous -Post Debridement Size (cm) - Length 0.7 -Post Debridement Size (cm) - Width 0.4 -Post Debridement Size (cm) - Depth 0.7 -Total Square Cm 0.28 -Wound/Ulcer Outcome Not Healed -Ulcer Cleansing Rinsed/ Irrigated with Saline -Foul Odor after Cleansing No -Bioengineered Tissue No -Bleeding Controlled with Pressure -Offloading No -Treatment Response Procedure Tolerated Well [See Physician Procedure note for Specifics] Pain Scale: 0-10 Numeric [Pain] -Is Patient Pain Free? Yes Musculoskeletal: No Tenderness to Palpation of Joints or Extremities, Muscle Wasting Neurological: Sensory exam intact to light touch and pain Psych/Mental Status: Normal Affect, Appropriate Debridement Note Post-Debridement Measurements/Treatment - Nurse 2 - General Ulcer CM Notes Start: 11/07/18 09:01 Freq: Status: Active Protocol: Activity Type Activity Date Activity User E-Sign Co-Sign Detail Recorded Client Recorded Date Recorded By Document 11/07/18 09:28 JF [id number] 11/07/18 09:29 JF Document 11/14/18 09:05 DL [id number] 11/14/18 09:09 DL 11/07/18 11/14/18 09:28 09:05 Wound Center Nurse 2 9. L post calf -Time 09: 09:06 -Correct Patient Yes Yes -Correct Side, Site, Position Yes Yes -Correct Procedure Yes Yes -Procedure Performed Yes Yes -Type of Procedure Debridement Debridement -Clinical Debridement Subcutaneous Subcutaneous -Post Debridement Size (cm) - Length 0.4 0.7 -Post Debridement Size (cm) - Width 0.3 0.4 -Post Debridement Size (cm) - Depth 0.4 0.7 -Total Square Cm 0.12 0.28 -Wound/Ulcer Outcome Not Healed Not Healed -Ulcer Cleansing Rinsed/ Rinsed/ Irrigated with Irrigated with Saline Saline -Foul Odor after Cleansing No No -Bioengineered Tissue No No -Bleeding Controlled with Pressure Pressure -Offloading No No -Treatment Response Procedure Procedure Tolerated Well Tolerated Well Pain Scale: 0-10 Numeric Is Patient Pain Free? Yes Yes Wound debrided: leg Laterality: Left Type of Debridement: Excisional debridement Anesthesia Used: 5% Lidocaine Gel Depth: in the subcutaneous layer Percentage of wound debrided: 100 Instrument Used: #15 blade Tissue Removed: fibrous, devitalized subcutaneous, biofilm, slough Severity: Fat Layer Exposed Amount of bleeding with debridement: Mild Bleeding Controlled with: Pressure Patient tolerated procedure well Assessment/Plan Active Problems (Last Reviewed 10/08/18 @ 08:36 by Maggy Dukes) Chronic kidney disease, stage 3 (Chronic) Ulcer of left lower extremity with fat layer exposed (Chronic) Calciphylaxis (Chronic) Assessment: Left leg ulcer with fat layer exposed. venous insufficiency. Lower extremity pain. Multiple comorbidities noted. Calciphylaxis Plan: She was evaluated today and her care plan was discussed. Debridement was performed as noted in the clinical panel. A wicked Aquacel Ag dressing was applied; to change daily. To moisturize adjacent skin with Aquaphor. To monitor for return of calciphylaxis soft tissue changes and oral prednisone. To follow-up with her tractor crane engineer as scheduled. To continue with compression dressing; she has compression stockings with zippers. To elevate limbs at rest and to avoid idle standing or sitting. She was reassured no local signs of infection are noted to monitor closely. I do not recommend traditional nutritional supplementation due to her calciphylaxis condition. To follow-up in 1 week at the wound healing center or call sooner if she has any questions or concerns. I answered all of her questions.
[2018-11-21 09:46] VITALS: BP 128/72; PULSE 85; RESP 18; TEMP 36.6; BMI 35.4
--- NOTE | 2018-11-21 12:57 | PN.PCM_ITS ---
(1) Ulcer of left lower extremity with fat layer exposed Status: Chronic Current Visit: Yes Code(s): L97.922 - Non-pressure chronic ulcer of unspecified part of left lower leg with fat layer exposed (2) Chronic kidney disease, stage 3 Status: Chronic Current Visit: Yes Code(s): N18.3 - Chronic kidney disease, stage 3 (moderate) (3) Calciphylaxis Status: Chronic Current Visit: Yes Code(s): E83.59 - Other disorders of calcium metabolism Type of Wound Date of Service: 11/21/18 Chief Complaint: left leg ulcer History of Wound: Di is a 73 year old female follows for left leg ulcer. She relates continued drainage. She has been treated medically for calciphylaxis. She has follow up with Dr. Gage caballero with updated labs. She denies odor. She is with her today. She is concerned that inflamm ation of her leg is progressing to the calciphylaxis. Progress of Wound: stable - Physical Exam Vital Signs Temp Pulse Resp BP 97.8 F 85 18 128/72 H 11/21/18 09:46 11/21/18 09:46 11/21/18 09:46 11/21/18 09:46 General: Alert, Oriented x3, Cooperative Extremities: No cyanosis, Capillary Refill Less than 3 Seconds, No Calf Tenderness, Diminished Peripheral Pulses, Edema - Left lower extremity, Tenderness - Ulcer manipulation pain, - - Compartments remain soft and there is no fluctuance left lower extremity Skin: Ulcer/ Wound - No purulence, streaking, odor, necrosis or deep tissue probing to capsule or muscle or bone. The ulcer depth has increased and there is additional progression of not only gabriella-wound inflammation but the entire left leg including the thigh leg and ankle area. Varicosities are noted. The skin peripherally is very atrophic. Wound Measurements and Assessment WC - Nurse 1 - General Ulcer Measurement Start: 11/07/18 09:01 Freq: Status: Active Protocol: Activity Type Activity Date Activity User E-Sign Co-Sign Detail Recorded Client Recorded Date Recorded By Document 11/21/18 09:46 RB [id number] 11/21/18 09:48 RB 11/21/18 09:46 Wound Center Nurse 1 [Ulcer Assessment] 9. L post calf -Combined with other wound No -Current Size (cm) - Length 0.8 -Current Size (cm) - Width 0.5 -Current Size (cm) - Depth 0.7 -Total Square Cm 0.40 -Photo Taken No -Tunneling No -Undermining/Tunneling No -Circular Undermining No -Exudate Amt Small -Exudate Type Purulent -Wound Margin Distinct, Outline Attached -Granulation Amt Small (1-33%) -Granulation Quality [place] -Slough/Fibrin Yes -Necrosis Amt Large (67-100%) -Necrotic Tissue Type Adherent Slough -Structure Exposed N/A -Texture (Gabriella-wound Skin Appearance) Assessed -Moisture (Gabriella-wound Skin Appearance Assessed ) -Color (Gabriella-wound Skin Appearance) Assessed Erythema -Temperature (Gabriella-wound Skin No Abnormality Appearance) (Pt Warm) -Tenderness on Palpation (Gabriella-wound No Skin Appearance) -Ulcer Cleansing Rinsed/ Irrigated with Saline -Foul Odor after Cleansing No -Anesthetic Used 5% Lidocaine Gel [Edema Assessment] -Lower Limb Edema Present Yes -Left Calf (cm) 33.5 -Left Ankle (cm) 22.5 WC - Nurse 2 - General Ulcer CM Notes Start: 11/07/18 09:01 Freq: Status: Active Protocol: Activity Type Activity Date Activity User E-Sign Co-Sign Detail Recorded Client Recorded Date Recorded By Document 11/21/18 10:06 BJ [id number] 11/21/18 10:07 BJ 11/21/18 10:06 Wound Center Nurse 2 [Procedure/Treatment] 9. L post calf -Time 10:06 -Correct Patient Yes -Correct Side, Site, Position Yes -Correct Procedure Yes -Procedure Performed Yes -Type of Procedure Debridement -Clinical Debridement Subcutaneous -Post Debridement Size (cm) - Length 0.8 -Post Debridement Size (cm) - Width 0.6 -Post Debridement Size (cm) - Depth 1.0 -Total Square Cm 0.48 -Wound/Ulcer Outcome Not Healed -Ulcer Cleansing Rinsed/ Irrigated with Saline -Foul Odor after Cleansing No -Bioengineered Tissue No -Bleeding Controlled with Pressure -Offloading No -Treatment Response Procedure Tolerated Well [See Physician Procedure note for Specifics] Pain Scale: 0-10 Numeric [Pain] -Is Patient Pain Free? Yes Musculoskeletal: No Tenderness to Palpation of Joints or Extremities, Muscle Wasting Neurological: Sensory exam intact to light touch and pain Psych/Mental Status: Normal Affect, Appropriate Debridement Note Post-Debridement Measurements/Treatment WC - Nurse 2 - General Ulcer CM Notes Start: 11/07/18 09:01 Freq: Status: Active Protocol: Activity Type Activity Date Activity User E-Sign Co-Sign Detail Recorded Client Recorded Date Recorded By Document 11/07/18 09:28 JF [id number] 11/07/18 09:29 JF Document 11/14/18 09:05 DL [id number] 11/14/18 09:09 DL Document 11/21/18 10:06 JF [id number] 11/21/18 10:07 11/07/18 11/14/18 11/21/18 09:28 09:05 10:06 Wound Center Nurse 2 9. L post calf -Time 09:28 09:06 10:06 -Correct Patient Yes Yes Yes -Correct Side, Site, Position Yes Yes Yes -Correct Procedure Yes Yes Yes -Procedure Performed Yes Yes Yes -Type of Procedure Debridement Debridement Debridement -Clinical Debridement Subcutaneous Subcutaneous Subcutaneous -Post Debridement Size (cm) - Length 0.4 0.7 0.8 -Post Debridement Size (cm) - Width 0.3 0.4 0.6 -Post Debridement Size (cm) - Depth 0.4 0.7 1.0 -Total Square Cm 0.12 0.28 0.48 -Wound/Ulcer Outcome Not Healed Not Healed Not Healed -Ulcer Cleansing Rinsed/ Rinsed/ Rinsed/ Irrigated with Irrigated with Irrigated with Saline Saline Saline -Foul Odor after Cleansing No No No -Bioengineered Tissue No No No -Bleeding Controlled with Pressure Pressure Pressure -Offloading No No No -Treatment Response Procedure Procedure Procedure Tolerated Well Tolerated Well Tolerated Well Pain Scale: 0-10 Numeric Is Patient Pain Free? Yes Yes Yes Wound debrided: leg Laterality: Left Type of Debridement: Excisional debridement Anesthesia Used: 5% Lidocaine Gel Depth: in the subcutaneous layer Percentage of wound debrided: 100 Instrument Used: #15 blade Tissue Removed: fibrous, devitalized subcutaneous, biofilm, slough Severity: Fat Layer Exposed Amount of bleeding with debridement: Mild Bleeding Controlled with: Pressure Patient tolerated procedure well Assessment/Plan Active Problems (Last Reviewed 10/08/18 @ 08:36 by Maggy Dukes) Chronic kidney disease, stage 3 (Chronic) Ulcer of left lower extremity with fat layer exposed (Chronic) Calciphylaxis (Chronic) Assessment: Left leg ulcer with fat layer exposed. venous insufficiency. Lower extremity pain. Multiple comorbidities noted. Calciphylaxis Plan: She was evaluated today and her care plan was discussed. Debridement was performed as noted in the clinical panel. A wicked saline wet-to-dry gauze dressing was applied; to change daily. To moisturize adjacent skin with Aquaphor. To monitor for return of calciphylaxis soft tissue changes and oral prednisone. To follow-up with her training and development director as scheduled. To continue with compression dressing; she has compression stockings with zippers. To elevate limbs at rest and to avoid idle standing or sitting. She was reassured no local signs of infection are noted to monitor closely. I do not recommend traditional nutritional supplementation due to her calciphylaxis condition. To follow-up in 1 week at the wound healing center or call sooner if she has any qu estions or concerns.
== END 2018-11-22 23:59 ==
LOC: WC 09:30
PROVIDERS: Family Provider Internal Medicine; PCP Internal Medicine; Referring Provider Family Medicine; Visit Provider Podiatrist
DX: I87.2 Venous insufficiency (chronic) (peripheral) (principal); E83.59 Other disorders of calcium metabolism; N18.3 Chronic kidney disease, stage 3 (moderate); L97.822 Non-pressure chronic ulcer of other part of left lower leg with fat layer exposed
CPT/HCPCS: 11042; 99212; G0463

== ENCOUNTER → 2018-11-28 07:52 | Outpatient (CLI) | payer MEDICARE, SELFPAY ==
[2018-11-21 09:46] VITALS: BMI 35.4
[2018-11-28 08:23] LABS: Hematocrit 41.6 % (37-47); Hemoglobin 13.2 g/dl (12.0-15.0); Mean Corp Hgb Conc 31.7 g/gl (32-36); Mean Corpuscular Hgb 30.3 pg (27.0-32.0); Mean Corpuscular Volume 95.6 fL (81-99); Mean Platelet Vol. 10.5 fl (6.2-12.0); Platelet Count 133 K/mm3 (150-450); RBC Distribution Width CV 14.4 % (11.6-14.6); RBC Distribution Width SD 48.5 fl (35.1-43.9); Red Blood Count 4.35 M/mm3 (4.2-5.4); White Blood Count 6.8 K/mm3 (4.4-11.0)
[2018-11-28 08:24] LABS: Scan Indicated on CBC? Y/N NO
[2018-11-28 08:51] LABS: Albumin, Serum 3.7 g/dL (3.2-5.0); BUN 29 mg/dL (7-18); BUN/Creat Ratio 24.8 RATIO (10-20); Calcium,Total 9.4 mg/dL (8.5-10.1); Chloride 105 mmol/L (98-107); Creatinine, Serum 1.17 mg/dL (0.55-1.02); EST Glomerular Filtration Rate 48 mL/min (>60); Est Glom Filt Rate - Afr Amer 59 mL/min (>60); Ferritin 41 ng/mL (8-252); Glucose 124 mg/dL (74-106); Iron 69 ug/dL (50-170); Iron Binding Capacity,Total 435 ug/dL (250-450); Phosphorus 3.5 mg/dL (2.5-4.9); Potassium 3.9 mmol/L (3.5-5.1); Sodium Level 142 mmol/L (136-145)
[2018-11-28 09:27] LABS: PTHIN 28.5 pg/mL (18.4-80.1)
[2018-11-28 09:33] LABS: Vitamin D,25 Hydroxy 29.6 ng/mL (29.95-100.01)
== END ==
PROVIDERS: Family Provider Internal Medicine; PCP Internal Medicine; Referring Provider Internal Medicine Nephrology; Visit Provider Internal Medicine Nephrology
DX: D50.9 Iron deficiency anemia, unspecified (principal); N18.3 Chronic kidney disease, stage 3 (moderate); E67.3 Hypervitaminosis D; E83.59 Other disorders of calcium metabolism
CPT/HCPCS: 36415; 80069; 82306; 82728; 83540; 83550; 83970; 85027

== ENCOUNTER → 2018-11-29 07:21 | Outpatient (CLI) | payer MEDICARE, SELFPAY ==
[2018-10-08 11:23] VITALS: BMI 35.4
[2018-11-28 08:42] VITALS: BMI 35.4
--- NOTE | 2018-11-29 07:00 | BI_ITS ---
MAMMOGRAPHY - BILATERAL SCREENING REASON FOR EXAM: Female, 73 years old. Routine annual screening examination. PERTINENT HISTORY: Non-contributory. TECHNIQUE: Digital bilateral breast danielle (3D mammographic acquisition) in the CC and MLO projections. 2-D mediolateral oblique (MLO) and craniocaudad (CC) views of both breasts were obtained. CAD: Full Field Digital Mammography with Computer Added Detection was performed. COMPARISON: Comparison is made with prior study dated November 17, 2017 and November 16, 2016. FINDINGS: Breast Composition: The breasts are heterogeneously dense, which may obscure small masses. There are no dominant masses or suspicious calcifications. A loop recorder device is seen overlying the deep mid medial aspect of the left breast. Stable appearance of the bilateral vascular and secretory calcifications. No other significant abnormalities are identified. There has been no significant change since the prior study. BI/SCREENING MAMM (CAD), BILAT IMPRESSION: Stable bilateral screening mammogram. Yearly follow-up mammogram recommended. (A) ASSESSMENT CATEGORY: BIRADS Category 2: Benign. A letter regarding these results will be sent to the patient by the facility within 30 days. Approximately 10% of breast cancers are not detected by mammography. A normal mammogram should not delay biopsy of a clinically suspicious abnormality. [id number] Electronically Signed: Carlos Cai, at 9:29 EST , Service support ,
== END ==
PROVIDERS: Family Provider Internal Medicine; PCP Internal Medicine; Referring Provider Nurse Practitioner; Visit Provider Nurse Practitioner
DX: Z12.31 Encounter for screening mammogram for malignant neoplasm of breast (principal)
CPT/HCPCS: 77063; 77067

== ENCOUNTER 2018-12-19 09:00 | Outpatient (RCR) | payer MEDICARE, SELFPAY ==
[2018-11-23 00:50] VITALS: BP 128/72; PULSE 85; RESP 18; TEMP 36.6
[2018-11-28 08:42] VITALS: BP 108/77; PULSE 84; RESP 18; TEMP 36.2; BMI 35.4
--- NOTE | 2018-11-28 16:54 | PCM.WC.PN ---
(1) Ulcer of left lower extremity with fat layer exposed Status: Chronic Current Visit: Yes Code(s): L97.922 - Non-pressure chronic ulcer of unspecified part of left lower leg with fat layer exposed (2) Chronic kidney disease, stage 3 Status: Chronic Current Visit: Yes Code(s): N18.3 - Chronic kidney disease, stage 3 (moderate) (3) Venous insufficiency (chronic) (peripheral) Status: Chronic Current Visit: Yes Code(s): I87.2 - Venous insufficiency (chronic) (peripheral) (4) Calciphylaxis Status: Chronic Current Visit: Yes Code(s): E83.59 - Other disorders of calcium metabolism Type of Wound Date of Service: 11/28/18 Chief Complaint: left leg ulcer History of Wound: Di is a 73 year old female follows for left leg ulcer. She relates continued drainage. She has been treated medically for calciphylaxis. She has follow up with Dr. Gage caballero with updated labs. She denies odor. She is with her today. She is concerned that inflammation of her leg is progressing to the calciphylaxis. She denies thick drainage this time since she is changed her dressing applications. Progress of Wound: stable - Physical Exam Vital Signs Temp Pulse Resp BP 97.1 F L 84 18 108/77 11/28/18 08:42 11/28/18 08:42 11/28/18 08:42 11/28/18 08:42 General: Alert, Oriented x3, Cooperative Extremities: No cyanosis, Capillary Refill Less than 3 Seconds, No Calf Tenderness - Negative [place] left, Diminished Peripheral Pulses, Edema Skin: Ulcer/ Wound - No purulence, erythema, streaking, odor, or infection. Entire left lower extremity inflammation is noted and partially indurated. Peripheral skin is hairless and atrophic. Wound Measurements and Assessment WC - Nurse 1 - General Ulcer Measurement Start: 11/28/18 08:42 Freq: Status: Active Protocol: Activity Type Activity Date Activity User E-Sign Co-Sign Detail Recorded Client Recorded Date Recorded By Document 11/28/18 08:42 DL [id number] 11/28/18 08:46 DL 11/28/18 08:42 Wound Center Nurse 1 [Ulcer Assessment] 9. L post calf -Current Size (cm) - Length 0.8 -Current Size (cm) - Width 0.6 -Current Size (cm) - Depth 0.6 -Total Square Cm 0.48 -Photo Taken No -Exudate Amt Small -Exudate Type Serosanguineous -Wound Margin Distinct, Outline Attached -Granulation Amt Large (67-100%) -Granulation Quality Red -Necrosis Amt Small (1-33%) -Necrotic Tissue Type Adherent Slough -Structure Exposed N/A -Texture (Gabriella-wound Skin Appearance) Induration Localized Edema Scarring -Moisture (Gabriella-wound Skin Appearance No Abnormality ) -Color (Gabriella-wound Skin Appearance) Erythema -Temperature (Gabriella-wound Skin No Abnormality Appearance) (Pt Warm) -Ulcer Cleansing Rinsed/ Irrigated with Saline -Foul Odor after Cleansing No -Anesthetic Used 4% Lidocaine Solution [Edema Assessment] -Left Calf (cm) 33.1 -Left Ankle (cm) 21 WC - Nurse 2 - General Ulcer CM Notes Start: 11/28/18 08:42 Freq: Status: Active Protocol: Activity Type Activity Date Activity User E-Sign Co-Sign Detail Recorded Client Recorded Date Recorded By Document 11/28/18 09:08 BJ [id number] 11/28/18 09:10 11/28/18 09:08 Wound Center Nurse 2 [Procedure/Treatment] 9. L post calf -Time 09:09 -Correct Patient Yes -Correct Side, Site, Position Yes -Correct Procedure Yes -Procedure Performed Yes -Type of Procedure Debridement -Clinical Debridement Subcutaneous -Post Debridement Size (cm) - Length 0.7 -Post Debridement Size (cm) - Width 0.4 -Post Debridement Size (cm) - Depth 0.7 -Total Square Cm 0.28 -Wound/Ulcer Outcome Not Healed -Ulcer Cleansing Rinsed/ Irrigated with Saline -Foul Odor after Cleansing No -Bioengineered Tissue No -Bleeding Controlled with Pressure -Offloading No -Treatment Response Procedure Tolerated Well [See Physician Procedure note for Specifics] Pain Scale: 0-10 Numeric [Pain] -Is Patient Pain Free? Yes Musculoskeletal: No Tenderness to Palpation of Joints or Extremities, Muscle Wasting Neurological: Sensory exam intact to light touch and pain Psych/Mental Status: Normal Affect, Appropriate Debridement Note Post-Debridement Measurements/Treatment WC - Nurse 2 - General Ulcer CM Notes Start: 11/28/18 08:42 Freq: Status: Active Protocol: Activity Type Activity Date Activity User E-Sign Co-Sign Detail Recorded Client Recorded Date Recorded By Document 11/28/18 09:08 JF [id number] 11/28/18 09:10 BJ 11/28/18 09:08 Wound Center Nurse 2 9. L post calf -Time 09:09 -Correct Patient Yes -Correct Side, Site, Position Yes -Correct Procedure Yes -Procedure Performed Yes -Type of Procedure Debridement -Clinical Debridement Subcutaneous -Post Debridement Size (cm) - Length 0.7 -Post Debridement Size (cm) - Width 0.4 -Post Debridement Size (cm) - Depth 0.7 -Total Square Cm 0.28 -Wound/Ulcer Outcome Not Healed -Ulcer Cleansing Rinsed/ Irrigated with Saline -Foul Odor after Cleansing No -Bioengineered Tissue No -Bleeding Controlled with Pressure -Offloading No -Treatment Response Procedure Tolerated Well Pain Scale: 0-10 Numeric Is Patient Pain Free? Yes Wound debrided: leg Laterality: Left Type of Debridement: Excisional debridement Anesthesia Used: 5% Lidocaine Gel Depth: in the subcutaneous layer Percentage of wound debrided: 100 Instrument Used: #15 blade Tissue Removed: fibrous, devitalized subcutaneous, biofilm, slough Severity: Fat Layer Exposed Amount of bleeding with debridement: Mild Bleeding Controlled with: Pressure Patient tolerated procedure well Assessment/Plan Active Problems (Last Reviewed 10/08/18 @ 08:36 by Maggy Dukes) Chronic kidney disease, stage 3 (Chronic) Venous insufficiency (chronic) (peripheral) (Chronic) Ulcer of left lower extremity with fat layer exposed (Chronic) Calciphylaxis (Chronic) Assessment: Left leg ulcer with fat layer exposed. venous insufficiency. Lower extremity pain. Multiple comorbidities noted. Calciphylaxis Plan: She was evaluated today and her care plan was discussed. Debridement was performed as noted in the clinical panel. A wicked saline wet-to-dry gauze dressing was applied; to change daily. To moisturize adjacent skin with Aquaphor. To monitor for return of calciphylaxis soft tissue changes and oral prednisone. 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 To continue with compression dressing; she has compression stockings with zippers. She initially applied an Tray wrap extending into her thigh last week she is tolerated for the most part. However, a couple days ago she noticed some bruising and is concerned this will turn into a calciphylaxis ulcer site; she is advised to discontinue this at this time. I do not appreciate any tissue loss or infection. To elevate limbs at rest and to avoid idle standing or sitting. She was reassured no local signs of infection are noted to monitor closely. I do not recommend traditional nutritional supplementation due to her calciphylaxis condition. To follow-up in 1 week at the wound healing center or call sooner if she has any questions or concerns.
[2018-12-05 08:43] VITALS: BP 139/74; PULSE 87; RESP 18; TEMP 35.5; BMI 35.4
--- NOTE | 2018-12-05 10:40 | PCM.WC.PN ---
(1) Ulcer of left lower extremity with fat layer exposed Status: Chronic Current Visit: Yes Code(s): L97.922 - Non-pressure chronic ulcer of unspecified part of left lower leg with fat layer exposed (2) Chronic kidney disease, stage 3 Status: Chronic Current Visit: Yes Code(s): N18.3 - Chronic kidney disease, stage 3 (moderate) (3) Venous insufficiency (chronic) (peripheral) Status: Chronic Current Visit: Yes Code(s): I87.2 - Venous insufficiency (chronic) (peripheral) (4) Calciphylaxis Status: Chronic Current Visit: Yes Code(s): E83.59 - Other disorders of calcium metabolism Type of Wound Date of Service: 12/05/18 Chief Complaint: left leg ulcer History of Wound: Perlita is a 73 year old female follows for left leg ulcer. She relates continued drainage. She has been treated medically for calciphylaxis. She has follow up with Dr. Gage caballero with updated labs and follows up tomorrow. She denies odor. She is with her today. she has continued purulent type drainage while at home and this is not seen today; she has a video of this on her phone. Progress of Wound: stable. bacterial contamination concern - Physical Exam Vital Signs Temp Pulse Resp BP 95.9 F L 87 18 139/74 H 12/05/18 08:43 12/05/18 08:43 12/05/18 08:43 12/05/18 08:43 General: Alert, Oriented x3, Cooperative HEENT: Atraumatic Cardiovascular: - - Varicosities left lower extremity and telangiectasias Extremities: No cyanosis, Capillary Refill Less than 3 Seconds, No Calf Tenderness - Negative Kimberly and Layton left, Diminished Peripheral Pulses, Edema, Tenderness - Pain to ulcer manipulation left leg, - - Compartments remain soft to palpate left leg Skin: Ulcer/ Wound - There is no purulence on expression or odor or streaking or necrosis noted today. There was a thick yellow and white drainage noted on her video from home a couple days ago. There is continued entire leg and thigh increased inflammation that is diffuse with indurated skin Wound Measurements and Assessment WC - Nurse 1 - General Ulcer Measurement Start: 11/28/18 08:42 Freq: Status: Active Protocol: Activity Type Activity Date Activity User E-Sign Co-Sign Detail Recorded Client Recorded Date Recorded By Document 12/05/18 08:43 AN [id number] 12/05/18 08:50 AN 12/05/18 08:43 Wound Center Nurse 1 [Ulcer Assessment] #10 L Post Calf Sup -Current Size (cm) - Length 0.2 -Current Size (cm) - Width 0.2 -Current Size (cm) - Depth 0.2 -Total Square Cm 0.04 -Photo Taken Yes -Exudate Amt Small -Exudate Type Yellow/Green -Wound Margin Flat & Intact -Granulation Amt Small (1-33%) -Granulation Quality Red -Necrosis Amt Small (1-33%) -Necrotic Tissue Type Adherent Slough -Structure Exposed N/A -Texture (Gabriella-wound Skin Appearance) Induration Localized Edema -Moisture (Gabriella-wound Skin Appearance No Abnormality ) -Color (Gabriella-wound Skin Appearance) Erythema -Temperature (Gabriella-wound Skin No Abnormality Appearance) (Pt Warm) -Tenderness on Palpation (Gabriella-wound No Skin Appearance) -Ulcer Cleansing Wound Cleanser -Foul Odor after Cleansing No -Anesthetic Used 5% Lidocaine Gel 9. L post calf -Current Size (cm) - Length 0.7 -Current Size (cm) - Width 0.5 -Current Size (cm) - Depth 0.5 -Total Square Cm 0.35 -Photo Taken No -Undermining/Tunneling Starts (O' 10 clock) -Undermining/Tunneling Ends (O'clock) 5 -Maximum Distance (cm) 0.3 -Exudate Amt Small -Exudate Type Serosanguineous -Wound Margin Distinct, Outline Attached -Granulation Amt Large (67-100%) -Granulation Quality Red -Necrosis Amt Small (1-33%) -Necrotic Tissue Type Adherent Slough -Structure Exposed N/A -Texture (Gabriella-wound Skin Appearance) Induration Localized Edema Scarring -Moisture (Gabriella-wound Skin Appearance No Abnormality ) -Color (Gabriella-wound Skin Appearance) Mottled Rubor -Temperature (Gabriella-wound Skin No Abnormality Appearance) (Pt Warm) -Tenderness on Palpation (Gabriella-wound No Skin Appearance) -Ulcer Cleansing Wound Cleanser -Foul Odor after Cleansing No -Anesthetic Used 5% Lidocaine Gel [Edema Assessment] -Left Calf (cm) 33.3 -Left Ankle (cm) 21 WC - Nurse 2 - General Ulcer CM Notes Start: 11/28/18 08:42 Freq: Status: Active Protocol: Activity Type Activity Date Activity User E-Sign Co-Sign Detail Recorded Client Recorded Date Recorded By Document 12/05/18 09:45 AN [id number] 12/05/18 09:46 AN 12/05/18 09:45 Wound Center Nurse 2 [Procedure/Treatment] #10 L Post Calf Sup -Time 09:45 -Correct Patient Yes -Correct Side, Site, Position Yes -Correct Procedure Yes -Procedure Performed Yes -Type of Procedure Debridement -Clinical Debridement Subcutaneous -Post Debridement Size (cm) - Length 0.2 -Post Debridement Size (cm) - Width 0.2 -Post Debridement Size (cm) - Depth 0.2 -Total Square Cm 0.04 -Wound/Ulcer Outcome Not Healed -Ulcer Cleansing Rinsed/ Irrigated with Saline -Foul Odor after Cleansing No -Bioengineered Tissue No -Bleeding Controlled with Pressure -Treatment Response Procedure Tolerated Well 9. L post calf -Time 09:46 -Correct Patient Yes -Correct Side, Site, Position Yes -Correct Procedure Yes -Procedure Performed Yes -Type of Procedure Debridement -Clinical Debridement Subcutaneous -Post Debridement Size (cm) - Length 0.5 -Post Debridement Size (cm) - Width 0.5 -Post Debridement Size (cm) - Depth 0.7 -Total Square Cm 0.25 -Wound/Ulcer Outcome Not Healed -Ulcer Cleansing Rinsed/ Irrigated with Saline -Foul Odor after Cleansing No -Bioengineered Tissue No -Bleeding Controlled with Pressure -Offloading No -Treatment Response Procedure Tolerated Well [See Physician Procedure note for Specifics] Pain Scale: 0-10 Numeric [Pain] -Is Patient Pain Free? Yes Musculoskeletal: No Tenderness to Palpation of Joints or Extremities, Muscle Wasting Neurological: Sensory exam intact to light touch and pain Psych/Mental Status: Normal Affect, Appropriate Debridement Note Post-Debridement Measurements/Treatment WC - Nurse 2 - General Ulcer CM Notes Start: 11/28/18 08:42 Freq: Status: Active Protocol: Activity Type Activity Date Activity User E-Sign Co-Sign Detail Recorded Client Recorded Date Recorded By Document 11/28/18 09:08 BJ [id number] 11/28/18 09:10 JF Document 12/05/18 09:45 AN [id number] 12/05/18 09:46 AN 11/28/18 12/05/18 09:08 09:45 Wound Center Nurse 2 #10 L Post Calf Sup -Time 09:45 -Correct Patient Yes -Correct Side, Site, Position Yes -Correct Procedure Yes -Procedure Performed Yes -Type of Procedure Debridement -Clinical Debridement Subcutaneous -Post Debridement Size (cm) - Length 0.2 -Post Debridement Size (cm) - Width 0.2 -Post Debridement Size (cm) - Depth 0.2 -Total Square Cm 0.04 -Wound/Ulcer Outcome Not Healed -Ulcer Cleansing Rinsed/ Irrigated with Saline -Foul Odor after Cleansing No -Bioengineered Tissue No -Bleeding Controlled with Pressure -Treatment Response Procedure Tolerated Well 9. L post calf -Time 09:09 09:46 -Correct Patient Yes Yes -Correct Side, Site, Position Yes Yes -Correct Procedure Yes Yes -Procedure Performed Yes Yes -Type of Procedure Debridement Debridement -Clinical Debridement Subcutaneous Subcutaneous -Post Debridement Size (cm) - Length 0.7 0.5 -Post Debridement Size (cm) - Width 0.4 0.5 -Post Debridement Size (cm) - Depth 0.7 0.7 -Total Square Cm 0.28 0.25 -Wound/Ulcer Outcome Not Healed Not Healed -Ulcer Cleansing Rinsed/ Rinsed/ Irrigated with Irrigated with Saline Saline -Foul Odor after Cleansing No No -Bioengineered Tissue No No -Bleeding Controlled with Pressure Pressure -Offloading No No -Treatment Response Procedure Procedure Tolerated Well Tolerated Well Pain Scale: 0-10 Numeric Is Patient Pain Free? Yes Yes Wound debrided: leg Laterality: Left Type of Debridement: Excisional debridement Anesthesia Used: 5% Lidocaine Gel Depth: in the subcutaneous layer Percentage of wound debrided: 100 Instrument Used: 5mm curette Tissue Removed: fibrous, devitalized subcutaneous, biofilm, slough Severity: Fat Layer Exposed Amount of bleeding with debridement: Mild Bleeding Controlled with: Pressure Patient tolerated procedure well Assessment/Plan Active Problems (Last Reviewed 10/08/18 @ 08:36 by Maggy Dukes) Chronic kidney disease, stage 3 (Chronic) Venous insufficiency (chronic) (peripheral) (Chronic) Ulcer of left lower extremity with fat layer exposed (Chronic) Calciphylaxis (Chronic) Assessment: Left leg ulcer with fat layer exposed. venous insufficiency. Lower extremity pain. Multiple comorbidities noted. Calciphylaxis Plan: She was evaluated today and her care plan was discussed. Debridement was performed as noted in the clinical panel. A wicked saline wet-to-dry gauze dressing was applied; to change daily. To moisturize adjacent skin with Aquaphor. To monitor for return of calciphylaxis soft tissue changes and oral prednisone. I reviewed her labs today and her creatinine is 1.17, calcium and phosphate are within normal range and she does not demonstrate leukocytosis. To follow-up with her staff development manager as scheduled. To continue with compression dressing; she has compression stockings with zippers. I do not appreciate any tissue loss or infection. However, I am concerned about bacterial contamination secondary to the continued reporting of purulent drainage at home. A deep wound culture was obtained today and will be sent for aerobic and anaerobic testing. Contamination may be contributing to delayed healing. I do not recommend antibiotics at this time until we get preliminary results back to determine if this is appropriate. If the area is free of infection delayed primary suture closure will be considered; this ulcer site has a depth of 0.7 and is very mobile. To elevate limbs at rest and to avoid idle standing or sitting. She was reassured no local signs of infection are noted to monitor closely. I do not recommend traditional nutritional supplementation due to her calciphylaxis condition. To follow-up in 1 week at the wound healing center or call sooner if she has any questions or concerns.
--- NOTE | 2018-12-05 10:44 | PN.PCM_ITS ---
(1) Ulcer of left lower extremity with fat layer exposed Status: Chronic Current Visit: Yes Code(s): L97.922 - Non-pressure chronic ulcer of unspecified part of left lower leg with fat layer exposed (2) Chronic kidney disease, stage 3 Status: Chronic Current Visit: Yes Code(s): N18.3 - Chronic kidney disease, stage 3 (moderate) (3) Venous insufficiency (chronic) (peripheral) Status: Chronic Current Visit: Yes Code(s): I87.2 - Venous insufficiency (chronic) (peripheral) (4) Calciphylaxis Status: Chronic Current Visit: Yes Code(s): E83.59 - Other disorders of calcium metabolism Type of Wound Date of Service: 12/05/18 Chief Complaint: left leg ulcer History of Wound: Perlita is a 73 year old female follows for left leg ulcer. She relates continued drainage. She has been treated medically for calciphylaxis. She has follow up with Dr. Gage caballero with updated labs and follows up tomorrow. She denies odor. She is with her today. she has continued purulent type drainage while at home and this is not seen today; she has a video of this on her phone. Progress of Wound: stable. bacterial contamination concern - Physical Exam Vital Signs Temp Pulse Resp BP 95.9 F L 87 18 139/74 H 12/05/18 08:43 12/05/18 08:43 12/05/18 08:43 12/05/18 08:43 General: Alert, Oriented x3, Cooperative HEENT: Atraumatic Cardiovascular: - - Varicosities left lower extremity and telangiectasias Extremities: No cyanosis, Capillary Refill Less than 3 Seconds, No Calf Tenderness - Negative Kimberly and Layton left, Diminished Peripheral Pulses, Edema, Tenderness - Pain to ulcer manipulation left leg, - - Compartments remain soft to palpate left leg Skin: Ulcer/ Wound - There is no purulence on expression or odor or streaking or necrosis noted today. There was a thick yellow and white drainage noted on her video from home a couple days ago. There is continued entire leg and thigh increased inflammation that is diffuse with indurated skin Wound Measurements and Assessment WC - Nurse 1 - General Ulcer Measurement Start: 11/28/18 08:42 Freq: Status: Active Protocol: Activity Type Activity Date Activity User E-Sign Co-Sign Detail Recorded Client Recorded Date Recorded By Document 12/05/18 08:43 AN [id number] 12/05/18 08:50 AN 12/05/18 08:43 Wound Center Nurse 1 [Ulcer Assessment] #10 L Post Calf Sup -Current Size (cm) - Length 0.2 -Current Size (cm) - Width 0.2 -Current Size (cm) - Depth 0.2 -Total Square Cm 0.04 -Photo Taken Yes -Exudate Amt Small -Exudate Type Yellow/Green -Wound Margin Flat & Intact -Granulation Amt Small (1-33%) -Granulation Quality Red -Necrosis Amt Small (1-33%) -Necrotic Tissue Type Adherent Slough -Structure Exposed N/A -Texture (Gabriella-wound Skin Appearance) Induration Localized Edema -Moisture (Gabriella-wound Skin Appearance No Abnormality ) -Color (Gabriella-wound Skin Appearance) Erythema -Temperature (Gabriella-wound Skin No Abnormality Appearance) (Pt Warm) -Tenderness on Palpation (Gabriella-wound No Skin Appearance) -Ulcer Cleansing Wound Cleanser -Foul Odor after Cleansing No -Anesthetic Used 5% Lidocaine Gel 9. L post calf -Current Size (cm) - Length 0.7 -Current Size (cm) - Width 0.5 -Current Size (cm) - Depth 0.5 -Total Square Cm 0.35 -Photo Taken No -Undermining/Tunneling Starts (O' 10 clock) -Undermining/Tunneling Ends (O'clock) 5 -Maximum Distance (cm) 0.3 -Exudate Amt Small -Exudate Type Serosanguineous -Wound Margin Distinct, Outline Attached -Granulation Amt Large (67-100%) -Granulation Quality Red -Necrosis Amt Small (1-33%) -Necrotic Tissue Type Adherent Slough -Structure Exposed N/A -Texture (Gabriella-wound Skin Appearance) Induration Localized Edema Scarring -Moisture (Gabriella-wound Skin Appearance No Abnormality ) -Color (Gabriella-wound Skin Appearance) Mottled Rubor -Temperature (Gabriella-wound Skin No Abnormality Appearance) (Pt Warm) -Tenderness on Palpation (Gabriella-wound No Skin Appearance) -Ulcer Cleansing Wound Cleanser -Foul Odor after Cleansing No -Anesthetic Used 5% Lidocaine Gel [Edema Assessment] -Left Calf (cm) 33.3 -Left Ankle (cm) 21 WC - Nurse 2 - General Ulcer CM Notes Start: 11/28/18 08:42 Freq: Status: Active Protocol: Activity Type Activity Date Activity User E-Sign Co-Sign Detail Recorded Client Recorded Date Recorded By Document 12/05/18 09:45 AN [id number] 12/05/18 09:46 AN 12/05/18 09:45 Wound Center Nurse 2 [Procedure/Treatment] #10 L Post Calf Sup -Time 09:45 -Correct Patient Yes -Correct Side, Site, Position Yes -Correct Procedure Yes -Procedure Performed Yes -Type of Procedure Debridement -Clinical Debridement Subcutaneous -Post Debridement Size (cm) - Length 0.2 -Post Debridement Size (cm) - Width 0.2 -Post Debridement Size (cm) - Depth 0.2 -Total Square Cm 0.04 -Wound/Ulcer Outcome Not Healed -Ulcer Cleansing Rinsed/ Irrigated with Saline -Foul Odor after Cleansing No -Bioengineered Tissue No -Bleeding Controlled with Pressure -Treatment Response Procedure Tolerated Well 9. L post calf -Time 09:46 -Correct Patient Yes -Correct Side, Site, Position Yes -Correct Procedure Yes -Procedure Performed Yes -Type of Procedure Debridement -Clinical Debridement Subcutaneous -Post Debridement Size (cm) - Length 0.5 -Post Debridement Size (cm) - Width 0.5 -Post Debridement Size (cm) - Depth 0.7 -Total Square Cm 0.25 -Wound/Ulcer Outcome Not Healed -Ulcer Cleansing Rinsed/ Irrigated with Saline -Foul Odor after Cleansing No -Bioengineered Tissue No -Bleeding Controlled with Pressure -Offloading No -Treatment Response Procedure Tolerated Well [See Physician Procedure note for Specifics] Pain Scale: 0-10 Numeric [Pain] -Is Patient Pain Free? Yes Musculoskeletal: No Tenderness to Palpation of Joints or Extremities, Muscle Wasting Neurological: Sensory exam intact to light touch and pain Psych/Mental Status: Normal Affect, Appropriate Debridement Note Post-Debridement Measurements/Treatment WC - Nurse 2 - General Ulcer CM Notes Start: 11/28/18 08:42 Freq: Status: Active Protocol: Activity Type Activity Date Activity User E-Sign Co-Sign Detail Recorded Client Recorded Date Recorded By Document 11/28/18 09:08 BJ [id number] 11/28/18 09:10 JF Document 12/05/18 09:45 AN [id number] 12/05/18 09:46 AN 11/28/18 12/05/18 09:08 09:45 Wound Center Nurse 2 #10 L Post Calf Sup -Time 09:45 -Correct Patient Yes -Correct Side, Site, Position Yes -Correct Procedure Yes -Procedure Performed Yes -Type of Procedure Debridement -Clinical Debridement Subcutaneous -Post Debridement Size (cm) - Length 0.2 -Post Debridement Size (cm) - Width 0.2 -Post Debridement Size (cm) - Depth 0.2 -Total Square Cm 0.04 -Wound/Ulcer Outcome Not Healed -Ulcer Cleansing Rinsed/ Irrigated with Saline -Foul Odor after Cleansing No -Bioengineered Tissue No -Bleeding Controlled with Pressure -Treatment Response Procedure Tolerated Well 9. L post calf -Time 09:09 09:46 -Correct Patient Yes Yes -Correct Side, Site, Position Yes Yes -Correct Procedure Yes Yes -Procedure Performed Yes Yes -Type of Procedure Debridement Debridement -Clinical Debridement Subcutaneous Subcutaneous -Post Debridement Size (cm) - Length 0.7 0.5 -Post Debridement Size (cm) - Width 0.4 0.5 -Post Debridement Size (cm) - Depth 0.7 0.7 -Total Square Cm 0.28 0.25 -Wound/Ulcer Outcome Not Healed Not Healed -Ulcer Cleansing Rinsed/ Rinsed/ Irrigated with Irrigated with Saline Saline -Foul Odor after Cleansing No No -Bioengineered Tissue No No -Bleeding Controlled with Pressure Pressure -Offloading No No -Treatment Response Procedure Procedure Tolerated Well Tolerated Well Pain Scale: 0-10 Numeric Is Patient Pain Free? Yes Yes Wound debrided: leg Laterality: Left Type of Debridement: Excisional debridement Anesthesia Used: 5% Lidocaine Gel Depth: in the subcutaneous layer Percentage of wound debrided: 100 Instrument Used: 5mm curette Tissue Removed: fibrous, devitalized subcutaneous, biofilm, slough Severity: Fat Layer Exposed Amount of bleeding with debridement: Mild Bleeding Controlled with: Pressure Patient tolerated procedure well Assessment/Plan Active Problems (Last Reviewed 10/08/18 @ 08:36 by Maggy Dukes) Chronic kidney disease, stage 3 (Chronic) Venous insufficiency (chronic) (peripheral) (Chronic) Ulcer of left lower extremity with fat layer exposed (Chronic) Calciphylaxis (Chronic) Assessment: Left leg ulcer with fat layer exposed. venous insufficiency. Lower extremity pain. Multiple comorbidities noted. Calciphylaxis Plan: She was evaluated today and her care plan was discussed. Debridement was performed as noted in the clinical panel. A wicked saline wet-to-dry gauze dressing was applied; to change daily. To moisturize adjacent skin with Aquaphor. To monitor for return of calciphylaxis soft tissue changes and oral prednisone. I reviewed her labs today and her creatinine is 1.17, calcium and phosphate are within normal range and she does not demonstrate leukocytosis. To follow-up with her senior administrative services officer as scheduled. To continue with compression dressing; she has compression stockings with zippers. I do not appreciate an y tissue loss or infection. However, I am concerned about bacterial contamination secondary to the continued reporting of purulent drainage at home. A deep wound culture was obtained today and will be sent for aerobic and anaerobic testing. Contamination may be contributing to delayed healing. I do not recommend antibiotics at this time until we get preliminary results back to determine if this is appropriate. If the area is free of infection delayed primary suture closure will be considered; this ulcer site has a depth of 0.7 and is very mobile. To elevate limbs at rest and to avoid idle standing or sitting. She was reassured no local signs of infection are noted to monitor closely. I do not recommend traditional nutritional supplementation due to her calciphylaxis condition. To follow-up in 1 week at the wound healing center or call sooner if she has any questions or concerns.
[2018-12-12 08:54] VITALS: BP 117/72; PULSE 82; RESP 18; TEMP 36.3; BMI 35.4
--- NOTE | 2018-12-12 12:45 | PCM.WC.PN ---
(1) Ulcer of left lower extremity with fat layer exposed Status: Chronic Current Visit: Yes Code(s): L97.922 - Non-pressure chronic ulcer of unspecified part of left lower leg with fat layer exposed (2) Chronic kidney disease, stage 3 Status: Chronic Current Visit: Yes Code(s): N18.3 - Chronic kidney disease, stage 3 (moderate) (3) Venous insufficiency (chronic) (peripheral) Status: Chronic Current Visit: Yes Code(s): I87.2 - Venous insufficiency (chronic) (peripheral) (4) Calciphylaxis Status: Chronic Current Visit: Yes Code(s): E83.59 - Other disorders of calcium metabolism Type of Wound Date of Service: 12/12/18 Chief Complaint: left leg ulcer History of Wound: Di is a 73 year old female follows for left leg ulcer. She relates continued drainage. She has been treated medically for calciphylaxis. Her prednisone has been adjusted and she is scheduled for repeat labs in 1 month; she will continue to follow-up with nephrology for her calciphylaxis medical management. She denies odor. She is with her today. She reports her ulcer drainage has decreased that she continues to take antibiotics for her MRSA contamination as advised. She denies diarrhea, fever, chill, nausea, vomiting. Progress of Wound: Improving - Physical Exam Vital Signs Temp Pulse Resp BP 97.3 F L 82 18 117/72 12/12/18 08:54 12/12/18 08:54 12/12/18 08:54 12/12/18 08:54 General: Alert, Oriented x3, Cooperative Extremities: No cyanosis, Capillary Refill Less than 3 Seconds, No Calf Tenderness, Diminished Peripheral Pulses, Edema, Tenderness - Pain with ulcer manipulation Skin: Ulcer/ Wound - No purulence, erythema measuring, odor, or infection. No purulence on expression or eschar. Decreased depth of the ulcer site is noted by 4 mm. The peripheral skin is hairless and atrophic and the gabriella-ulcer site inflammation has been decreasing. The skin is still fairly indurated peripherally around the ulcer site Wound Measurements and Assessment WC - Nurse 1 - General Ulcer Measurement Start: 11/28/18 08:42 Freq: Status: Active Protocol: Activity Type Activity Date Activity User E-Sign Co-Sign Detail Recorded Client Recorded Date Recorded By Document 12/12/18 08:54 RB [id number] 12/12/18 09:00 RB 12/12/18 08:54 Wound Center Nurse 1 [Ulcer Assessment] #10 L Post Calf Sup -Combined with other wound No -Current Size (cm) - Length 0.1 -Current Size (cm) - Width 0.1 -Current Size (cm) - Depth 0.1 -Total Square Cm 0.01 -Tunneling No -Undermining/Tunneling No -Circular Undermining No -Exudate Amt None Present -Wound Margin Distinct, Outline Attached -Granulation Amt Large (67-100%) -Granulation Quality [place] -Slough/Fibrin No -Necrosis Amt None Present (0 %) -Structure Exposed N/A -Texture (Gabriella-wound Skin Appearance) Assessed -Moisture (Gabriella-wound Skin Appearance Assessed ) -Color (Gabriella-wound Skin Appearance) Assessed -Temperature (Gabriella-wound Skin No Abnormality Appearance) (Pt Warm) -Tenderness on Palpation (Gabriella-wound No Skin Appearance) -Ulcer Cleansing Rinsed/ Irrigated with Saline -Foul Odor after Cleansing No 9. L post calf -Combined with other wound No -Current Size (cm) - Length 0.6 -Current Size (cm) - Width 0.4 -Current Size (cm) - Depth 0.5 -Total Square Cm 0.24 -Tunneling No -Undermining/Tunneling No -Circular Undermining No -Exudate Amt Small -Exudate Type Serosanguineous -Wound Margin Distinct, Outline Attached -Granulation Amt Large (67-100%) -Granulation Quality [place] -Slough/Fibrin Yes -Necrosis Amt Small (1-33%) -Necrotic Tissue Type Adherent Slough -Structure Exposed N/A -Texture (Gabriella-wound Skin Appearance) Assessed -Moisture (Gabriella-wound Skin Appearance Assessed ) -Color (Gabriella-wound Skin Appearance) Assessed -Temperature (Gabriella-wound Skin No Abnormality Appearance) (Pt Warm) -Tenderness on Palpation (Gabriella-wound No Skin Appearance) -Ulcer Cleansing Rinsed/ Irrigated with Saline -Foul Odor after Cleansing No -Anesthetic Used 5% Lidocaine Gel [Edema Assessment] -Lower Limb Edema Present Yes -Left Calf (cm) 35.5 -Left Ankle (cm) 23 WC - Nurse 2 - General Ulcer CM Notes Start: 11/28/18 08:42 Freq: Status: Active Protocol: Activity Type Activity Date Activity User E-Sign Co-Sign Detail Recorded Client Recorded Date Recorded By Document 12/12/18 09:19 AN [id number] 12/12/18 09:24 AN 12/12/18 09:19 Wound Center Nurse 2 [Procedure/Treatment] 9. L post calf -Time 09:21 -Correct Patient Yes -Correct Side, Site, Position Yes -Correct Procedure Yes -Procedure Performed Yes -Type of Procedure Debridement -Clinical Debridement Subcutaneous -Post Debridement Size (cm) - Length 0.7 -Post Debridement Size (cm) - Width 0.5 -Post Debridement Size (cm) - Depth 6 -Total Square Cm 0.35 -Wound/Ulcer Outcome Not Healed -Ulcer Cleansing Rinsed/ Irrigated with Saline -Foul Odor after Cleansing No -Bioengineered Tissue No -Bleeding Controlled with Pressure -Offloading No -Treatment Response Procedure Tolerated Well [See Physician Procedure note for Specifics] Pain Scale: 0-10 Numeric [Pain] -Is Patient Pain Free? Yes Musculoskeletal: No Tenderness to Palpation of Joints or Extremities, Muscle Wasting Neurological: Sensory exam intact to light touch and pain Psych/Mental Status: Normal Affect, Appropriate Debridement Note Post-Debridement Measurements/Treatment WC - Nurse 2 - General Ulcer CM Notes Start: 11/28/18 08:42 Freq: Status: Active Protocol: Activity Type Activity Date Activity User E-Sign Co-Sign Detail Recorded Client Recorded Date Recorded By Document 11/28/18 09:08 [email or web address] [id number] 11/28/18 09:10 Document 12/05/18 09:45 AN [id number] 12/05/18 09:46 AN Document 12/12/18 09:19 AN [id number] 12/12/18 09:24 AN 11/28/18 12/05/18 12/12/18 09:08 09:45 09:19 Wound Center Nurse 2 #10 L Post Calf Sup -Time 09:45 -Correct Patient Yes -Correct Side, Site, Position Yes -Correct Procedure Yes -Procedure Performed Yes -Type of Procedure Debridement -Clinical Debridement Subcutaneous -Post Debridement Size (cm) - Length 0.2 -Post Debridement Size (cm) - Width 0.2 -Post Debridement Size (cm) - Depth 0.2 -Total Square Cm 0.04 -Wound/Ulcer Outcome Not Healed -Ulcer Cleansing Rinsed/ Irrigated with Saline -Foul Odor after Cleansing No -Bioengineered Tissue No -Bleeding Controlled with Pressure -Treatment Response Procedure Tolerated Well 9. L post calf -Time 09:09 09:46 09:21 -Correct Patient Yes Yes Yes -Correct Side, Site, Position Yes Yes Yes -Correct Procedure Yes Yes Yes -Procedure Performed Yes Yes Yes -Type of Procedure Debridement Debridement Debridement -Clinical Debridement Subcutaneous Subcutaneous Subcutaneous -Post Debridement Size (cm) - Length 0.7 0.5 0.7 -Post Debridement Size (cm) - Width 0.4 0.5 0.5 -Post Debridement Size (cm) - Depth 0.7 0.7 6 -Total Square Cm 0.28 0.25 0.35 -Wound/Ulcer Outcome Not Healed Not Healed Not Healed -Ulcer Cleansing Rinsed/ Rinsed/ Rinsed/ Irrigated with Irrigated with Irrigated with Saline Saline Saline -Foul Odor after Cleansing No No No -Bioengineered Tissue No No No -Bleeding Controlled with Pressure Pressure Pressure -Offloading No No No -Treatment Response Procedure Procedure Procedure Tolerated Well Tolerated Well Tolerated Well Pain Scale: 0-10 Numeric Is Patient Pain Free? Yes Yes Yes Wound debrided: medial proximal leg Laterality: Left Type of Debridement: Excisional debridement Anesthesia Used: 4% Lidocaine Solution Depth: in the subcutaneous layer Percentage of wound debrided: 100 Instrument Used: #15 blade Tissue Removed: fibrous, devitalized subcutaneous, biofilm, slough Severity: Fat Layer Exposed Amount of bleeding with debridement: Mild Bleeding Controlled with: Pressure Patient tolerated procedure well Assessment/Plan Active Problems (Last Reviewed 10/08/18 @ 08:36 by Maggy Dukes) Chronic kidney disease, stage 3 (Chronic) Venous insufficiency (chronic) (peripheral) (Chronic) Ulcer of left lower extremity with fat layer exposed (Chronic) Calciphylaxis (Chronic) Assessment: Left leg ulcer with fat layer exposed. venous insufficiency. Lower extremity pain. Multiple comorbidities noted. Calciphylaxis Plan: She was evaluated today and her care plan was discussed. Debridement was performed as noted in the clinical panel. A wicked Aquacel Ag covered with a gauze dressing was applied; to change daily. To moisturize adjacent skin with Aquaphor. To monitor for return of calciphylaxis soft tissue changes and to continue oral prednisone. To follow-up with nephrology as advised. To continue with compression dressing; she has compression stockings with zippers. I do not appreciate any tissue loss or infection. A deep wound culture was obtained last week and was sent for aerobic and anaerobic testing. MRSA growth was noted and she was started on; she is advised to complete this course. This contamination likely contributed to the delayed healing. To elevate limbs at rest and to avoid idle standing or sitting. She was reassured no local signs of infection are noted to monitor closely. I do not recommend traditional nutritional supplementation due to her calciphylaxis condition. To follow-up in 1 week at the wound healing center or call sooner if she has any questions or concerns.
[2018-12-19 08:51] VITALS: BP 140/77; PULSE 78; RESP 18; TEMP 36.1; BMI 35.4
--- NOTE | 2018-12-19 14:08 | PCM.WC.PN ---
(1) Ulcer of left lower extremity with fat layer exposed Status: Chronic Code(s): L97.922 - Non-pressure chronic ulcer of unspecified part of left lower leg with fat layer exposed (2) Chronic kidney disease, stage 3 Status: Chronic Code(s): N18.3 - Chronic kidney disease, stage 3 (moderate) (3) Venous insufficiency (chronic) (peripheral) Status: Chronic Code(s): I87.2 - Venous insufficiency (chronic) (peripheral) (4) Calciphylaxis Status: Chronic Code(s): E83.59 - Other disorders of calcium metabolism Type of Wound Date of Service: 12/19/18 Chief Complaint: left leg ulcer History of Wound: Di is a 73 year old female follows for left leg ulcer. She relates continued drainage. She has been treated medically for calciphylaxis. She will continue to follow-up with nephrology for her calciphylaxis medical management. She denies odor. She reports her ulcer drainage has decreased that she completed antibiotics for her MRSA contamination as advised. She denies diarrhea, fever, chill, nausea, vomiting. Progress of Wound: Improving - Physical Exam Vital Signs Temp Pulse Resp BP 96.9 F L 78 18 140/77 H 12/19/18 08:51 12/19/18 08:51 12/19/18 08:51 12/19/18 08:51 General: Alert, Oriented x3, Cooperative Extremities: No cyanosis, Capillary Refill Less than 3 Seconds, No Calf Tenderness, Diminished Peripheral Pulses, Edema - Varicosities lower extremity, Tenderness - Tenderness with ulcer manipulation reported. No further deep probing noted Skin: Ulcer/ Wound - No purulence, erythema, streaking, odor, induration, infection, or eschar noted. Wound Measurements and Assessment WC - Nurse 1 - General Ulcer Measurement Start: 11/28/18 08:42 Freq: Status: Active Protocol: Activity Type Activity Date Activity User E-Sign Co-Sign Detail Recorded Client Recorded Date Recorded By Document 12/19/18 08:51 DV [id number] 12/19/18 09:02 DV 12/19/18 08:51 Wound Center Nurse 1 [Ulcer Assessment] 9. L post calf -Combined with other wound No -Current Size (cm) - Length 0.5 -Current Size (cm) - Width 0.4 -Current Size (cm) - Depth 0.5 -Total Square Cm 0.20 -Photo Taken No -Tunneling No -Undermining/Tunneling No -Circular Undermining No -Exudate Amt Small -Exudate Type Yellow/Green -Wound Margin Flat & Intact -Granulation Amt None Present (0 %) -Granulation Quality N/A -Slough/Fibrin Yes -Necrosis Amt Small (1-33%) -Necrotic Tissue Type Adherent Slough -Structure Exposed None/Limited to Skin Breakdown -Texture (Gabriella-wound Skin Appearance) No Abnormality Assessed -Moisture (Gabriella-wound Skin Appearance No Abnormality ) Assessed -Color (Gabriella-wound Skin Appearance) No Abnormality Assessed -Temperature (Gabriella-wound Skin No Abnormality Appearance) (Pt Warm) -Tenderness on Palpation (Gabriella-wound Yes Skin Appearance) -Ulcer Cleansing Rinsed/ Irrigated with Saline -Foul Odor after Cleansing No -Anesthetic Used 5% Lidocaine Gel [Edema Assessment] -Lower Limb Edema Present Yes -Left Calf (cm) 35.8 -Left Ankle (cm) 22.6 WC - Nurse 2 - General Ulcer CM Notes Start: 11/28/18 08:42 Freq: Status: Active Protocol: Activity Type Activity Date Activity User E-Sign Co-Sign Detail Recorded Client Recorded Date Recorded By Document 12/19/18 09:21 AN [id number] 12/19/18 09:25 AN 12/19/18 09:21 Wound Center Nurse 2 [Procedure/Treatment] 9. L post calf -Time 09:21 -Correct Patient Yes -Correct Side, Site, Position Yes -Correct Procedure Yes -Procedure Performed Yes -Type of Procedure Debridement -Clinical Debridement Subcutaneous -Post Debridement Size (cm) - Length 0.6 -Post Debridement Size (cm) - Width 0.5 -Post Debridement Size (cm) - Depth 0.3 -Total Square Cm 0.30 -Wound/Ulcer Outcome Not Healed -Ulcer Cleansing Rinsed/ Irrigated with Saline -Foul Odor after Cleansing No -Bioengineered Tissue No -Bleeding Controlled with Pressure [See Physician Procedure note for Specifics] Pain Scale: 0-10 Numeric [Pain] -Is Patient Pain Free? Yes Musculoskeletal: No Tenderness to Palpation of Joints or Extremities, Muscle Wasting, - - Compartments soft left lower extremity Neurological: Sensory exam intact to light touch and pain Psych/Mental Status: Normal Affect, Appropriate Debridement Note Post-Debridement Measurements/Treatment WC - Nurse 2 - General Ulcer CM Notes Start: 11/28/18 08:42 Freq: Status: Active Protocol: Activity Type Activity Date Activity User E-Sign Co-Sign Detail Recorded Client Recorded Date Recorded By Document 11/28/18 09:08 JF [id number] 11/28/18 09:10 JF Document 12/05/18 09:45 AN [id number] 12/05/18 09:46 AN Document 12/12/18 09:19 AN [id number] 12/12/18 09:24 AN Document 12/19/18 09:21 AN [id number] 12/19/18 09:25 AN 11/28/18 12/05/18 12/12/18 09:08 09:45 09:19 Wound Center Nurse 2 #10 L Post Calf Sup -Time 09:45 -Correct Patient Yes -Correct Side, Site, Position Yes -Correct Procedure Yes -Procedure Performed Yes -Type of Procedure Debridement -Clinical Debridement Subcutaneous -Post Debridement Size (cm) - Length 0.2 -Post Debridement Size (cm) - Width 0.2 -Post Debridement Size (cm) - Depth 0.2 -Total Square Cm 0.04 -Wound/Ulcer Outcome Not Healed -Ulcer Cleansing Rinsed/ Irrigated with Saline -Foul Odor after Cleansing No -Bioengineered Tissue No -Bleeding Controlled with Pressure -Treatment Response Procedure Tolerated Well 9. L post calf -Time 09:09 09:46 09:21 -Correct Patient Yes Yes Yes -Correct Side, Site, Position Yes Yes Yes -Correct Procedure Yes Yes Yes -Procedure Performed Yes Yes Yes -Type of Procedure Debridement Debridement Debridement -Clinical Debridement Subcutaneous Subcutaneous Subcutaneous -Post Debridement Size (cm) - Length 0.7 0.5 0.7 -Post Debridement Size (cm) - Width 0.4 0.5 0.5 -Post Debridement Size (cm) - Depth 0.7 0.7 6 -Total Square Cm 0.28 0.25 0.35 -Wound/Ulcer Outcome Not Healed Not Healed Not Healed -Ulcer Cleansing Rinsed/ Rinsed/ Rinsed/ Irrigated with Irrigated with Irrigated with Saline Saline Saline -Foul Odor after Cleansing No No No -Bioengineered Tissue No No No -Bleeding Controlled with Pressure Pressure Pressure -Offloading No No No -Treatment Response Procedure Procedure Procedure Tolerated Well Tolerated Well Tolerated Well Pain Scale: 0-10 Numeric Is Patient Pain Free? Yes Yes Yes 12/19/18 09:21 Wound Center Nurse 2 #10 L Post Calf Sup -Time -Correct Patient -Correct Side, Site, Position -Correct Procedure -Procedure Performed -Type of Procedure -Clinical Debridement -Post Debridement Size (cm) - Length -Post Debridement Size (cm) - Width -Post Debridement Size (cm) - Depth -Total Square Cm -Wound/Ulcer Outcome -Ulcer Cleansing -Foul Odor after Cleansing -Bioengineered Tissue -Bleeding Controlled with -Treatment Response 9. L post calf -Time 09:21 -Correct Patient Yes -Correct Side, Site, Position Yes -Correct Procedure Yes -Procedure Performed Yes -Type of Procedure Debridement -Clinical Debridement Subcutaneous -Post Debridement Size (cm) - Length 0.6 -Post Debridement Size (cm) - Width 0.5 -Post Debridement Size (cm) - Depth 0.3 -Total Square Cm 0.30 -Wound/Ulcer Outcome Not Healed -Ulcer Cleansing Rinsed/ Irrigated with Saline -Foul Odor after Cleansing No -Bioengineered Tissue No -Bleeding Controlled with Pressure -Offloading -Treatment Response Pain Scale: 0-10 Numeric Is Patient Pain Free? Yes Wound debrided: leg Laterality: Left Type of Debridement: Excisional debridement Anesthesia Used: 5% Lidocaine Gel Depth: in the subcutaneous layer Percentage of wound debrided: 100 Instrument Used: 3mm curette Tissue Removed: fibrous, devitalized subcutaneous, biofilm, slough Severity: Fat Layer Exposed Amount of bleeding with debridement: Mild Bleeding Controlled with: Pressure Patient tolerated procedure well Assessment/Plan Assessment: Left leg ulcer with fat layer exposed. venous insufficiency. Lower extremity pain. Multiple comorbidities noted. Calciphylaxis Plan: She was evaluated today and her care plan was discussed. Debridement was performed as noted in the clinical panel. A wicked Aquacel Ag covered with a gauze dressing was applied; to change daily. To moisturize adjacent skin with Aquaphor. To monitor for return of calciphylaxis soft tissue changes and to continue oral prednisone. To follow-up with nephrology as advised. To continue with compression dressing; she has compression stockings with zippers. I do not appreciate any tissue loss or infection. A deep wound culture was obtained previously and was sent for aerobic and anaerobic testing. MRSA growth was noted and she was started on; she already completed this course. This contamination likely contributed to the delayed healing. To elevate limbs at rest and to avoid idle standing or sitting. She was reassured no local signs of infection are noted to monitor closely. I do not recommend traditional nutritional supplementation due to her calciphylaxis condition. To follow-up in 1 week at the wound healing center or call sooner if she has any questions or concerns.
== END 2018-12-23 23:59 ==
LOC: WC 09:00
PROVIDERS: Family Provider Internal Medicine; PCP Internal Medicine; Referring Provider Family Medicine; Visit Provider Podiatrist
DX: I87.2 Venous insufficiency (chronic) (peripheral) (principal); E83.59 Other disorders of calcium metabolism; L97.822 Non-pressure chronic ulcer of other part of left lower leg with fat layer exposed; N18.3 Chronic kidney disease, stage 3 (moderate); Z22.322 Carrier or suspected carrier of Methicillin resistant Staphylococcus aureus
CPT/HCPCS: 11042; 87070; 87075; 87077; 87186; 87205

== ENCOUNTER → 2019-01-09 07:55 | Outpatient (CLI) | payer MEDICARE, SELFPAY ==
[2019-01-02 08:51] VITALS: BMI 35.4
[2019-01-09 09:10] LABS: Albumin, Serum 3.7 g/dL (3.2-5.0); BUN 32 mg/dL (7-18); BUN/Creat Ratio 26.9 RATIO (10-20); Calcium,Total 9.3 mg/dL (8.5-10.1); Chloride 104 mmol/L (98-107); Creatinine, Serum 1.19 mg/dL (0.55-1.02); EST Glomerular Filtration Rate 47 mL/min (>60); Est Glom Filt Rate - Afr Amer 57 mL/min (>60); Glucose 116 mg/dL (74-106); Phosphorus 3.6 mg/dL (2.5-4.9); Protein, Urine (Random) 28.6 mg/dL (<11.9); Protein:Creat Ratio 240 mg/g CRE (0-200); Sodium Level 140 mmol/L (136-145)
== END ==
PROVIDERS: Family Provider Internal Medicine; PCP Internal Medicine; Referring Provider Internal Medicine Nephrology; Visit Provider Internal Medicine Nephrology
DX: N18.3 Chronic kidney disease, stage 3 (moderate) (principal); E11.9 Type 2 diabetes mellitus without complications
CPT/HCPCS: 36415; 80069; 82570; 84156

== ENCOUNTER 2019-01-09 09:00 | Outpatient (RCR) | payer MEDICARE, SELFPAY ==
[2018-12-24 00:46] VITALS: BP 140/77; PULSE 78; RESP 18; TEMP 36.1
[2018-12-26 09:05] VITALS: BP 130/58; PULSE 82; RESP 18; TEMP 36.1; BMI 35.4
--- NOTE | 2018-12-26 10:52 | PN.PCM_ITS ---
(1) Right leg pain Status: Chronic Current Visit: Yes Code(s): M79.604 - Pain in right leg (2) Calciphylaxis Status: Chronic Current Visit: Yes Code(s): E83.59 - Other disorders of calcium metabolism (3) Ulcer of left lower extremity with fat layer exposed Status: Chronic Current Visit: Yes Code(s): L97.922 - Non-pressure chronic ulcer of unspecified part of left lower leg with fat layer exposed (4) Delayed wound healing Status: Chronic Current Visit: Yes Code(s): T14.8XXD - Other injury of unspecified body region, subsequent encounter Type of Wound Date of Service: 12/26/18 Chief Complaint: left leg ulcer History of Wound: Di is a 73 year old female follows for left leg ulcer. She relates continued drainage. She has been treated medically for calciphylaxis. She will continue to follow-up with nephrology for her calciphylaxis medical management. She denies odor. She reports her ulcer drainage has decreased that she completed antibiotics for her MRSA contamination as advised. She denies diarrhea, fever, chill, nausea, vomiting. Progress of Wound: Improving - Physical Exam Vital Signs Temp Pulse Resp BP 96.9 F L 82 18 130/58 H 12/26/18 09:05 12/26/18 09:05 12/26/18 09:05 12/26/18 09:05 General: Alert, Oriented x3, Cooperative HEENT: Atraumatic Extremities: No cyanosis, Capillary Refill Less than 3 Seconds, No Calf Tendern ess - negative pj and mehta sign noted, Edema - mild, Peripheral Pulses Normal Skin: Ulcer/ Wound - no purulence, no erythema, no infection. depth is 0.3 cm with granular base and ulcer bed is mobile and manuable reducible. peripheral skin is hairless and atrophic . there is no odor. Wound Measurements and Assessment WC - Nurse 1 - General Ulcer Measurement Start: 12/26/18 09:05 Freq: Status: Active Protocol: Activity Type Activity Date Activity User E-Sign Co-Sign Detail Recorded Client Recorded Date Recorded By Document 12/26/18 09:05 DV [id number] 12/26/18 09:07 DV 12/26/18 09:05 Wound Center Nurse 1 [Ulcer Assessment] 9. L post calf -Combined with other wound No -Current Size (cm) - Length 0.4 -Current Size (cm) - Width 0.3 -Current Size (cm) - Depth 0.5 -Total Square Cm 0.12 -Photo Taken No -Epithelialization None Present -Tunneling No -Undermining/Tunneling No -Circular Undermining No -Granulation Amt None Present (0 %) -Granulation Quality N/A -Slough/Fibrin No -Necrosis Amt None Present (0 %) -Structure Exposed None/Limited to Skin Breakdown -Texture (Gabriella-wound Skin Appearance) No Abnormality Assessed -Moisture (Gabriella-wound Skin Appearance No Abnormality ) Assessed -Color (Gabriella-wound Skin Appearance) No Abnormality Assessed -Temperature (Gabriella-wound Skin No Abnormality Appearance) (Pt Warm) -Tenderness on Palpation (Gabriella-wound No Skin Appearance) -Ulcer Cleansing Rinsed/ Irrigated with Saline -Foul Odor after Cleansing No -Anesthetic Used 5% Lidocaine Gel [Edema Assessment] -Lower Limb Edema Present No -Left Calf (cm) 33.0 -Point of measurement (cm from the 22.4 medial instep) WC - Nurse 2 - General Ulcer CM Notes Start: 12/26/18 09:05 Freq: Status: Active Protocol: Activity Type Activity Date Activity User E-Sign Co-Sign Detail Recorded Client Recorded Date Recorded By Document 12/26/18 09:26 AN [email or web address] 12/26/18 09:39 AN 12/26/18 09:26 Wound Center Nurse 2 [Procedure/Treatment] 9. L post calf -Time 09:28 -Correct Patient Yes -Correct Side, Site, Position Yes -Correct Procedure Yes -Procedure Performed Yes -Type of Procedure Debridement -Clinical Debridement Subcutaneous -Post Debridement Size (cm) - Length 0.5 -Post Debridement Size (cm) - Width 0.4 -Post Debridement Size (cm) - Depth 0.3 -Total Square Cm 0.20 -Wound/Ulcer Outcome Not Healed -Ulcer Cleansing Rinsed/ Irrigated with Saline -Foul Odor after Cleansing No -Bioengineered Tissue No -Bleeding Controlled with Pressure -Type of Offloading Surgical Shoe -Treatment Response Procedure Tolerated Well [See Physician Procedure note for Specifics] Musculoskeletal: No Tenderness to Palpation of Joints or Extremities, Muscle Wasting Neurological: Sensory exam intact to light touch and pain Psych/Mental Status: Normal Affect, Appropriate Debridement Note Post-Debridement Measurements/Treatment WC - Nurse 2 - General Ulcer CM Notes Start: 12/26/18 09:05 Freq: Status: Active Protocol: Activity Type Activity Date Activity User E-Sign Co-Sign Detail Recorded Client Recorded Date Recorded By Document 12/26/18 09:26 AN [email or web address] 12/26/18 09:39 AN 12/26/18 09:26 Wound Center Nurse 2 9. L post calf -Time 09:28 -Correct Patient Yes -Correct Side, Site, Position Yes -Correct Procedure Yes -Procedure Performed Yes -Type of Procedure Debridement -Clinical Debridement Subcutaneous -Post Debridement Size (cm) - Length 0.5 -Post Debridement Size (cm) - Width 0.4 -Post Debridement Size (cm) - Depth 0.3 -Total Square Cm 0.20 -Wound/Ulcer Outcome Not Healed -Ulcer Cleansing Rinsed/ Irrigated with Saline -Foul Odor after Cleansing No -Bioengineered Tissue No -Bleeding Controlled with Pressure -Type of Offloading Surgical Shoe -Treatment Response Procedure Tolerated Well Wound debrided: proximal medial leg Laterality: Left Type of Debridement: Excisional debridement Anesthesia Used: 5% Lidocaine Gel Depth: in the subcutaneous layer Percentage of wound debrided: 100 Instrument Used: 3mm curette, - - delayed primary closure performed today with 3-0 nylon (vertical mattress) Tissue Removed: fibrous, devitalized subcutaneous, biofilm, slough Severity: Fat Layer Exposed Amount of bleeding with debridement: Mild Bleeding Controlled with: Pressure Patient tolerated procedure well Assessment/Plan Active Problems (Last Reviewed 10/08/18 @ 08:36 by Maggy Dukes) Right leg pain (Chronic) Calciphylaxis (Chronic) Ulcer of left lower extremity with fat layer exposed (Chronic) Delayed wound healing (Chronic) Assessment: Left leg ulcer with fat layer exposed. venous insufficiency. Lower extremity pain. Multiple comorbidities noted. Calciphylaxis Plan: She was evaluated today and her care plan was discussed. Debridement was performed as noted in the clinical panel. Verbal consent was obtained for a primary closure procedure. The area was prepped with betadine and 2 cc of 1% lidocaine plain was administered local. Next, 3-0 nylon was applied in verticle mattress fashion to reapproximate the skin edges in a gentle eversion manner with no touch technique. This was covered with a gauze; to leave intact until follow up next week. She tolerated this well. Hemostasis was controlled with direct pressure. To moisturize adjacent skin with Aquaphor. To monitor for return of calciphylaxis soft tissue changes and to continue oral prednisone. To follow-up with nephrology as advised. To continue with compression dressing; she has compression stockings with zippers. To elevate limbs at rest and to avoid idle standing or sitting. She was reassured no local signs of infection are noted to monitor closely. I do not recommend traditional nutritional supplementation due to her calciphylaxis condition. To follow-up in 1 week at the wound healing center or call sooner if she has any questions or concerns.
[2019-01-02 08:51] VITALS: BP 141/78; PULSE 79; RESP 18; TEMP 36.6; BMI 35.4
--- NOTE | 2019-01-02 10:13 | PN.PCM_ITS ---
(1) Ulcer of left lower extremity with fat layer exposed Status: Chronic Current Visit: Yes Code(s): L97.922 - Non-pressure chronic ulcer of unspecified part of left lower leg with fat layer exposed (2) Right leg pain Status: Chronic Current Visit: Yes Code(s): M79.604 - Pain in right leg (3) Calciphylaxis Status: Chronic Current Visit: Yes Code(s): E83.59 - Other disorders of calcium metabolism (4) Delayed wound healing Status: Chronic Current Visit: Yes Code(s): T14.8XXD - Other injury of unspecified body region, subsequent encounter Type of Wound Date of Service: 01/02/19 Chief Complaint: left leg ulcer History of Wound: Di is a 73 year old female follows for left leg ulcer. She relates continued drainage. She has been treated medically for calciphylaxis. She will continue to follow-up with nephrology for her calciphylaxis medical management. She denies odor. She denies diarrhea, fever, chill, nausea, vomiting. She denies drainage at the primary delayed closure site that was performed last week. She is left her dressing intact as advised. Her pain has decreased. She has intermittent discomfort and has been diligent about keeping pressure off of this site. Progress of Wound: Stable - Physical Exam Vital Signs Temp Pulse Resp BP 97.8 F 79 18 141/78 H 01/02/19 08:51 01/02/19 08:51 01/02/19 08:51 01/02/19 08:51 General: Alert, Oriented x3, Cooperative HEENT: Atraumatic Extremities: No cyanosis, Capillary Refill Less than 3 Seconds, No Calf Tenderness - Compartments are soft. Negative Kimberly and Layton sign left., Diminished Peripheral Pulses, Edema - Left lower extremity with varicosities, Tenderness - No pain with delayed closure site on palpation. There is no peripheral induration, bogginess, fluctuance. Skin: Ulcer/ Wound - The delayed closure site skin margins are well approximated and aligned and coapting well with nylon suture in place. There is no drainage and is appears to be healing well. There is no gapping or necrosis. There are no new ulcers noted. The peripheral skin is hairless and atrophic. Wound Measurements and Assessment WC - Nurse 1 - General Ulcer Measurement Start: 12/26/18 09:05 Freq: Status: Active Protocol: Activity Type Activity Date Activity User E-Sign Co-Sign Detail Recorded Client Recorded Date Recorded By Document 01/02/19 08:51 AN [id number] 01/02/19 08:58 AN 01/02/19 08:51 Wound Center Nurse 1 [Ulcer Assessment] 9. L post calf -Current Size (cm) - Length 0.1 -Current Size (cm) - Width 0.1 -Current Size (cm) - Depth 0.1 -Total Square Cm 0.01 WC - Nurse 2 - General Ulcer CM Notes Start: 12/26/18 09:05 Freq: Status: Active Protocol: Activity Type Activity Date Activity User E-Sign Co-Sign Detail Recorded Client Recorded Date Recorded By Document 01/02/19 09:04 AN [id number] 01/02/19 09:05 AN 01/02/19 09:04 Wound Center Nurse 2 [Procedure/Treatment] -Time 09:04 -Correct Patient Yes -Correct Side, Site, Position Yes -Correct Procedure No -Procedure Performed No -Post Debridement Size (cm) - Length 0.1 -Post Debridement Size (cm) - Width 0.1 -Post Debridement Size (cm) - Depth 0.1 -Total Square Cm 0.01 -Wound/Ulcer Outcome Not Healed -Treatment Response Procedure Tolerated Well [See Physician Procedure note for Specifics] Pain Scale: 0-10 Numeric [Pain] -Is Patient Pain Free? Yes Musculoskeletal: No Tenderness to Palpation of Joints or Extremities, Muscle Wasting Neurological: Sensory exam intact to light touch and pain Psych/Mental Status: Normal Affect, Appropriate Debridement Note Post-Debridement Measurements/Treatment - Nurse 2 - General Ulcer CM Notes Start: 12/26/18 09:05 Freq: Status: Active Protocol: Activity Type Activity Date Activity User E-Sign Co-Sign Detail Recorded Client Recorded Date Recorded By Document 12/26/18 09:26 AN [id number] 12/26/18 09:39 AN Document 01/02/19 09:04 AN [id number] 01/02/19 09:05 AN 12/26/18 01/02/19 09:26 09:04 Wound Center Nurse 2 9. L post calf -Time 09:28 09:04 -Correct Patient Yes Yes -Correct Side, Site, Position Yes Yes -Correct Procedure Yes No -Procedure Performed Yes No -Type of Procedure Debridement -Clinical Debridement Subcutaneous -Post Debridement Size (cm) - Length 0.5 0.1 -Post Debridement Size (cm) - Width 0.4 0.1 -Post Debridement Size (cm) - Depth 0.3 0.1 -Total Square Cm 0.20 0.01 -Wound/Ulcer Outcome Not Healed Not Healed -Ulcer Cleansing Rinsed/ Irrigated with Saline -Foul Odor after Cleansing No -Bioengineered Tissue No -Bleeding Controlled with Pressure -Type of Offloading Surgical Shoe -Treatment Response Procedure Procedure Tolerated Well Tolerated Well Pain Scale: 0-10 Numeric Is Patient Pain Free? Yes No debridement was completed today - sutures are intact and there is no gapping or necrosis Assessment/Plan Active Problems (Last Reviewed 10/08/18 @ 08:36 by Maggy Dukes) Right leg pain (Chronic) Calciphylaxis (Chronic) Ulcer of left lower extremity with fat layer exposed (Chronic) Delayed wound healing (Chronic) Assessment: Left leg ulcer with fat layer exposed. venous insufficiency. Lower extremity pain. Multiple comorbidities noted. Calciphylaxis Plan: She was evaluated today and her care plan was discussed. The closure site was evaluated and the sutures are still intact. I recommend leaving this in place for an additional 1-2 weeks in which the suture will be removed in clinic. This appears stable without local signs of infection. This was covered with a gauze. It is okay to lightly cleanse the area but to avoid showering or directly submerging this limb into a bathtub or pool. To monitor for return of calciphylaxis soft tissue changes and to continue oral prednisone. To follow- up with nephrology as advised. To continue with compression dressing; she has compression stockings with zippers. To elevate limbs at rest and to avoid idle standing or sitting. She was reassured no local signs of infection are noted to monitor closely. I do not recommend traditional nutritional supplementation due to her calciphylaxis condition. To follow-up in 1 week at the wound healing center or call sooner if she has any questions or concerns.
[2019-01-09 08:27] VITALS: BP 146/84; PULSE 80; RESP 16; TEMP 36.4; BMI 35.4
--- NOTE | 2019-01-09 10:50 | PN.PCM_ITS ---
(1) Ulcer of left lower extremity with fat layer exposed Status: Chronic Code(s): L97.922 - Non-pressure chronic ulcer of unspecified part of left lower leg with fat layer exposed (2) Right leg pain Status: Chronic Code(s): M79.604 - Pain in right leg (3) Calciphylaxis Status: Chronic Code(s): E83.59 - Other disorders of calcium metabolism (4) Delayed wound healing Status: Chronic Code(s): T14.8XXD - Other injury of unspecified body region, subsequent encounter Type of Wound Date of Service: 01/09/19 Chief Complaint: left leg ulcer History of Wound: Di is a 73 year old female follows for left leg ulcer. She denies drainage since that primary suture closure has been performed a couple of weeks ago. She has been treated medically for calciphylaxis. She will continue to follow-up with nephrology for her calciphylaxis medical management. She denies odor. She denies diarrhea, fever, chill, nausea, vomiting. She is left her dressing intact as advised. Her pain has decreased. She denies discomfort in the site. Progress of Wound: Stable - Physical Exam Vital Signs Temp Pulse Resp BP 97.5 F L 80 16 146/84 H 01/09/19 08:27 01/09/19 08:27 01/09/19 08:27 01/09/19 08:27 General: Alert, Oriented x3, Cooperative Extremities: No cyanosis, Capillary Refill Less than 3 Seconds, No Calf Tenderness - Negative Kimberly and Layton left, Diminished Peripheral Pulses, Edema, - - No pain with pulse manipulation Skin: Ulcer/ Wound - No purulence, erythema pressure, odor, or infection. The peripheral skin is hairless and atrophic. Wound Measurements and Assessment WC - Nurse 1 - General Ulcer Measurement Start: 12/26/18 09:05 Freq: Status: Active Protocol: Activity Type Activity Date Activity User E-Sign Co-Sign Detail Recorded Client Recorded Date Recorded By Document 01/09/19 08:27 BJ [email or web address] 01/09/19 08:30 BJ 01/09/19 08:27 Wound Center Nurse 1 [Ulcer Assessment] 9. L post calf -Combined with other wound No -Current Size (cm) - Length 0.1 -Current Size (cm) - Width 0.1 -Current Size (cm) - Depth 0.1 -Total Square Cm 0.01 -Photo Taken No -Epithelialization None Present -Tunneling No -Undermining/Tunneling No -Circular Undermining No -Exudate Amt None Present -Wound Margin Flat & Intact -Granulation Amt None Present (0 %) -Granulation Quality N/A -Slough/Fibrin Yes -Necrosis Amt Small (1-33%) -Necrotic Tissue Type Adherent Slough -Structure Exposed N/A -Texture (Gabriella-wound Skin Appearance) Assessed Localized Edema -Moisture (Gabriella-wound Skin Appearance No Abnormality ) Assessed -Color (Gabriella-wound Skin Appearance) No Abnormality Assessed -Temperature (Gabriella-wound Skin No Abnormality Appearance) (Pt Warm) -Tenderness on Palpation (Gabriella-wound Yes Skin Appearance) -Ulcer Cleansing Rinsed/ Irrigated with Saline -Foul Odor after Cleansing No [Edema Assessment] -Lower Limb Edema Present Yes -Left Calf (cm) 33.6 -Left Ankle (cm) 22.2 Musculoskeletal: No Tenderness to Palpation of Joints or Extremities, Muscle Wasting Neurological: Sensory exam intact to light touch and pain Psych/Mental Status: Normal Affect, Appropriate Debridement Note Post-Debridement Measurements/Treatment WC - Nurse 2 - General Ulcer CM Notes Start: 12/26/18 09:05 Freq: Status: Active Protocol: Activity Type Activity Date Activity User E-Sign Co-Sign Detail Recorded Client Recorded Date Recorded By Document 12/26/18 09:26 AN [id number] 12/26/18 09:39 AN Document 01/02/19 09:04 AN [id number] 01/02/19 09:05 AN 12/26/18 01/02/19 09:26 09:04 Wound Center Nurse 2 9. L post calf -Time 09:28 09:04 -Correct Patient Yes Yes -Correct Side, Site, Position Yes Yes -Correct Procedure Yes No -Procedure Performed Yes No -Type of Procedure Debridement -Clinical Debridement Subcutaneous -Post Debridement Size (cm) - Length 0.5 0.1 -Post Debridement Size (cm) - Width 0.4 0.1 -Post Debridement Size (cm) - Depth 0.3 0.1 -Total Square Cm 0.20 0.01 -Wound/Ulcer Outcome Not Healed Not Healed -Ulcer Cleansing Rinsed/ Irrigated with Saline -Foul Odor after Cleansing No -Bioengineered Tissue No -Bleeding Controlled with Pressure -Type of Offloading Surgical Shoe -Treatment Response Procedure Procedure Tolerated Well Tolerated Well Pain Scale: 0-10 Numeric Is Patient Pain Free? Yes Wound debrided: leg Laterality: Left Type of Debridement: Excisional debridement Anesthesia Used: 5% Lidocaine Gel Depth: in the subcutaneous layer Percentage of wound debrided: 100 Instrument Used: #15 blade - sutures removed Tissue Removed: fibrous, devitalized subcutaneous, biofilm, slough Severity: Fat Layer Exposed Amount of bleeding with debridement: Mild Bleeding Controlled with: Pressure Patient tolerated procedure well, - - post debridement/suture removal 1 x 3 x 2 mm. no deep probing Assessment/Plan Assessment: Left leg ulcer with fat layer exposed. venous insufficiency. Lower extremity pain. Multiple comorbidities noted. Calciphylaxis Plan: She was evaluated today and her care plan was discussed. The closure site was evaluated and the sutures was removed with ulcer site reduction in size. To change daily with [employer]. This appears stable without local signs of infection. This was covered with a gauze. It is okay to lightly cleanse the area but to avoid showering or directly submerging this limb into a bathtub or pool. To monitor for return of calciphylaxis soft tissue changes and to continue oral prednisone. To follow-up with nephrology as advised. To continue with compression dressing; she has compression stockings with zippers. To elevate limbs at rest and to avoid idle standing or sitting. She was reassured no local signs of infection are noted to monitor closely. I do not recommend traditional nutritional supplementation due to her calciphylaxis condition. To follow-up in 1 week at the wound healing center or call sooner if she has any questions or concerns.
== END 2019-01-22 23:59 ==
LOC: WC 09:00
PROVIDERS: Family Provider Internal Medicine; PCP Internal Medicine; Referring Provider Family Medicine; Visit Provider Podiatrist
DX: I87.2 Venous insufficiency (chronic) (peripheral) (principal); E83.59 Other disorders of calcium metabolism; M79.604 Pain in right leg; L97.822 Non-pressure chronic ulcer of other part of left lower leg with fat layer exposed; Z86.14 Personal history of Methicillin resistant Staphylococcus aureus infection
CPT/HCPCS: 11042; 99212; G0463

== ENCOUNTER 2019-01-23 09:12 | Outpatient (RCR) | payer MEDICARE, SELFPAY ==
[2019-01-23 00:56] VITALS: BP 146/84; PULSE 80; RESP 16; TEMP 36.4
[2019-01-23 09:19] VITALS: BP 143/85; PULSE 82; RESP 18; TEMP 35.9; BMI 35.4
--- NOTE | 2019-01-23 11:12 | PN.PCM_ITS ---
(1) Ulcer of left lower extremity with fat layer exposed Status: Resolved Current Visit: Yes Code(s): L97.922 - Non-pressure chronic ulcer of unspecified part of left lower leg with fat layer exposed (2) Chronic kidney disease, stage 3 Status: Chronic Current Visit: Yes Code(s): N18.3 - Chronic kidney disease, stage 3 (moderate) (3) Calciphylaxis Status: Chronic Current Visit: Yes Code(s): E83.59 - Other disorders of calcium metabolism (4) Localized edema Status: Chronic Current Visit: Yes Code(s): R60.0 - Localized edema Type of Wound Date of Service: 01/23/19 Chief Complaint: left leg ulcer History of Wound: Di is a 73 year old female follows for left leg ulcer. She denies drainage since that primary suture closure has been performed about 1 month ago. She has been treated medically for calciphylaxis. She will continue to follow-up with nephrology for her calciphylaxis medical management. She denies odor or drainage this last week. She denies diarrhea, fever, chill, nausea, vomiting. Her pain is decreased to the ulcer site and occurs an intermittent basis to the firm skin sites on bilateral legs. Progress of Wound: Healed - Physical Exam Vital Signs Temp Pulse Resp BP 96.6 F L 82 18 143/85 H 01/23/19 09:19 01/23/19 09:19 01/23/19 09:19 01/23/19 09:19 General: Alert, Oriented x3, Cooperative Extremities: No cyanosis, Capillary Refill Less than 3 Seconds, No Calf Tenderness, Diminished Peripheral Pulses, Edema - Controlled bilateral, Tenderness - Distal to recently healed ulcer site consistent with previous visit no fluctuance or bogginess. The tissue is indurated consistent with her baseline calciphylaxis soft tissue status. There are no signs of any necrosis Skin: Ulcer/ Wound - Full epithelialization is noted and there are no signs of infection. The skin is atrophic and hairless left lower extremity Wound Measurements and Assessment WC - Nurse 1 - General Ulcer Measurement Start: 01/23/19 09:19 Freq: Status: Active Protocol: Activity Type Activity Date Activity User E-Sign Co-Sign Detail Recorded Client Recorded Date Recorded By Document 01/23/19 09:19 DL [id number] 01/23/19 09:22 DL 01/23/19 09:19 Wound Center Nurse 1 [Ulcer Assessment] 9. L post calf -Current Size (cm) - Length 0.1 -Current Size (cm) - Width 0.1 -Current Size (cm) - Depth 0.1 -Total Square Cm 0.01 -Photo Taken No -Exudate Amt None Present -Wound Margin Flat & Intact -Granulation Amt Large (67-100%) -Granulation Quality [place] -Necrosis Amt Small (1-33%) -Necrotic Tissue Type Adherent Slough -Structure Exposed N/A -Texture (Gabriella-wound Skin Appearance) Scarring -Moisture (Gabriella-wound Skin Appearance No Abnormality ) -Color (Gabriella-wound Skin Appearance) Hemosiderin Staining -Temperature (Gabriella-wound Skin No Abnormality Appearance) (Pt Warm) -Tenderness on Palpation (Gabriella-wound No Skin Appearance) -Ulcer Cleansing Rinsed/ Irrigated with Saline -Foul Odor after Cleansing No -Anesthetic Used 4% Lidocaine Solution [Edema Assessment] -Left Calf (cm) 35.3 -Left Ankle (cm) 22.5 WC - Nurse 2 - General Ulcer CM Notes Start: 01/23/19 09:19 Freq: Status: Active Protocol: Activity Type Activity Date Activity User E-Sign Co-Sign Detail Recorded Client Recorded Date Recorded By Document 01/23/19 09:46 BJ [id number] 01/23/19 09:47 BJ 01/23/19 09:46 Wound Center Nurse 2 [Procedure/Treatment] 9. L post calf -Correct Patient No -Correct Side, Site, Position No -Correct Procedure No -Procedure Performed No -Post Debridement Size (cm) - Length 0 -Post Debridement Size (cm) - Width 0 -Post Debridement Size (cm) - Depth 0 -Total Square Cm 0 -Wound/Ulcer Outcome Healed- Epithelialized [See Physician Procedure note for Specifics] Pain Scale: 0-10 Numeric [Pain] -Is Patient Pain Free? Yes Musculoskeletal: No Tenderness to Palpation of Joints or Extremities, Muscle Wasting Neurological: Sensory exam intact to light touch and pain Psych/Mental Status: Normal Affect, Appropriate Debridement Note Post-Debridement Measurements/Treatment [id number] - Nurse 2 - General Ulcer CM Notes Start: 01/23/19 09:19 Freq: Status: Active Protocol: Activity Type Activity Date Activity User E-Sign Co-Sign Detail Recorded Client Recorded Date Recorded By Document 01/23/19 09:46 BJ [id number] 01/23/19 09:47 BJ 01/23/19 09:46 Wound Center Nurse 2 9. L post calf -Correct Patient No -Correct Side, Site, Position No -Correct Procedure No -Procedure Performed No -Post Debridement Size (cm) - Length 0 -Post Debridement Size (cm) - Width 0 -Post Debridement Size (cm) - Depth 0 -Total Square Cm 0 -Wound/Ulcer Outcome Healed- Epithelialized Pain Scale: 0-10 Numeric Is Patient Pain Free? Yes No debridement was completed today - healed today Assessment/Plan Active Problems (Last Reviewed 10/08/18 @ 08:36 by Maggy Dukes) Chronic kidney disease, stage 3 (Chronic) Calciphylaxis (Chronic) Localized edema (Chronic) Assessment: Left leg ulcer with fat layer exposed. venous insufficiency. Lower extremity pain. Multiple comorbidities noted. Calciphylaxis Plan: She was evaluated today and her care plan was discussed. Full epithelialization is noted in this ulcer site is considered healed. To monitor daily. To keep adjacent skin moisturized. She understands the skin will continue to remodel over the next several months. She can discontinue all ulcer care applications. She is discharged in the wound healing center at this time. To follow-up if this ulcer site returns or if she has any other foot or ankle concerns. Answered her questions. To continue with compression zipper stockings. To follow-up with regional merchandising manager for long-term calciphylaxis management.
== END 2019-02-22 23:59 ==
LOC: WC 09:12
PROVIDERS: Family Provider Internal Medicine; PCP Internal Medicine; Referring Provider Family Medicine; Visit Provider Podiatrist
DX: I87.2 Venous insufficiency (chronic) (peripheral) (principal); E83.59 Other disorders of calcium metabolism; R60.0 Localized edema; N18.3 Chronic kidney disease, stage 3 (moderate)
CPT/HCPCS: 99212; G0463

== ENCOUNTER 2019-04-01 05:13 | Emergency (ER) | payer MEDICARE, SELFPAY ==
[2019-04-01 05:13] VITALS: BP 142/62; PULSE 86; RESP 17; TEMP 37.2; O2SAT 94; BMI 37.5
[2019-04-01 05:15] VITALS: BP 160/80
[2019-04-01 05:20] VITALS: O2SAT 98
--- NOTE | 2019-04-01 05:20 | EKG12_ITS ---
Test Reason : SOB Blood Pressure : / mmHG Vent. Rate : 099 BPM Atrial Rate : 094 BPM P-R Int : 000 ms QRS Dur : 090 ms QT Int : 318 ms P-R-T Axes : 000 073 -20 degrees QTc Int : 408 ms Atrial fibrillation Nonspecific ST abnormality Abnormal QRS-T angle, consider primary T wave abnormality Abnormal ECG Confirmed by MOODY BACON, ABISAI ([id number]), material expeditor KOJO CAMARA ([id number]) on 04/02/2019 1:36:28 PM Referred By: CHRISTA Confirmed By:ABISAI URIOSTEGUI MD
--- NOTE | 2019-04-01 05:20 | RAD_ITS ---
STUDY: X-RAY CHEST REASON FOR EXAM: Female, 73 years old. Chest pain. Shortness of breath TECHNIQUE: 1 view COMPARISON: April 08, 2018 FINDINGS: Cardiomegaly. No failure. No pneumonia. No pleural effusions. Normal visualized thoracic spine. Normal visualized ribs, clavicles, and shoulders. There is no demonstrated abnormality of the visualized soft tissue structures of the upper abdomen. RAD/Chest 1 View (Portable) IMPRESSION: Cardiomegaly with no failure or pneumonia. No pleural effusions. Electronically Signed: Gerardo Zavala MD at 6:00 EDT Tel , Service support ,
--- NOTE | 2019-04-01 05:43 | ED.VIS.DYS ---
History of Present Illness Chief Complaint: Chest Pain Informant: Patient Onset: Weeks - 1.5 Activity at onset: - - gradual onset Timing: Continuous Quality: Dyspnea on exertion Current Severity: Moderate Maximum Severity: Moderate Worsened by: Exertion, Lying flat Relieved by: Rest Associated Symptoms: Cough - [employer] Chest Pain: Continuous, Aching - substernal w/o radiation Narrative: Patient took a car ride to and from [place] around 2 weeks ago, for the past 1.5 weeks, she has been having worsening edema in her legs that she felt became worse as a result of having them dependent for so long in the car, as well as dyspnea with exertion/orthopnea. Symptoms became worse yesterday, and she developed nausea with chest discomfort that has been constant since then, around 12 hours ago. She has a history of congestive heart failure and atrial fibrillation she is no longer on anticoagulants. She denies any pleuritic chest discomfort. No history of DVT or PE. - Past Medical History (1) MRSA (methicillin resistant staph aureus) culture positive Status: Chronic (2) Chronic kidney disease, stage 3 Status: Chronic (3) Venous insufficiency (chronic) (peripheral) Status: Chronic (4) LYN on CPAP Status: Chronic (5) Pulmonary hypertension Status: Chronic (6) Atrial fibrillation Status: Chronic (7) Chronic diastolic heart failure Status: Chronic (8) PAOD (peripheral arterial occlusive disease) Status: Chronic (9) Depression Status: Chronic (10) Neuropathic pain Status: Chronic (11) History of cardiac radiofrequency ablation (RFA) Status: Chronic Comment: 1st part of MAZE procedure Lt Atrial Ablation 01/12/17 @ Sy (12) Status post placement of implantable loop recorder Status: Chronic Comment: Loop recorder implant 01/03/[address] Roach (13) History of maze procedure Status: Chronic (14) Hypertension Status: Chronic (15) Type 2 diabetes mellitus Status: Chronic (16) Spinal stenosis of lumbar region with radiculopathy Status: Chronic Past Medical History - Allergies and Home Meds Allergies/Adverse Reactions: Allergies amlodipine besylate [From Norvasc] Allergy (Verified 10/08/18 08:37) Unknown ceftriaxone Allergy (Verified 10/08/18 08:37) Rash doxazosin [From Cardura] Allergy (Verified 10/08/18 08:37) Unknown doxazosin mesylate [From Cardura] Allergy (Verified 10/08/18 08:37) Other VEINS TURNED RED doxycycline Allergy (Verified 10/08/18 08:37) Unknown Pt doesn't remember enalapril maleate [From Vasotec] Allergy (Verified 10/08/18 08:37) Rash enalaprilat dihydrate [From Vasotec] Allergy (Verified 10/08/18 08:37) Rash hydroxyzine HCl [From Vistaril] Allergy (Verified 10/08/18 08:37) Rash hydroxyzine pamoate [From Vistaril] Allergy (Verified 10/08/18 08:37) Rash meperidine HCl [From Demerol] Allergy (Verified 10/08/18 08:37) Rash Sulfa (Sulfonamide Antibiotics) Allergy (Verified 10/08/18 08:37) Hives sulfamethoxazole [From Bactrim] Allergy (Verified 10/08/18 08:37) Hives trimethoprim [From Bactrim] Allergy (Verified 10/08/18 08:37) Hives Primary Care Physician: Aaron Tidwell MD [Primary Care Provider] - Doctors: Gage Rosenberg Surgical History: cataract, cholecystectomy, hysterectomy, - - s/p MAZE procedure, loop recorder. Lives: Spouse/ Significant Other Smoking Status: Never smoker - Family History Maternal Family History: Family History (Last Reviewed 10/08/18 @ 08:36 by Maggy Dukes) Mother Diabetes Brother Diabetes Myocardial infarction Cancer Son Hypertension Daughter Arthritis Diabetes Hypertension Brother Cancer Family History: Reports: No pertinent history Paternal Family History: Family History (Last Reviewed 10/08/18 @ 08:36 by Maggy Dukes) Mother Diabetes Brother Diabetes Myocardial infarction Cancer Son Hypertension Daughter Arthritis Diabetes Hypertension Brother Cancer Family History: Reports: No pertinent history Review of Systems General: Reports: Malaise. Denies: Chills, Fever, Sweats Eyes: Denies: Visual changes - bilaterally, Diplopia ENT: Denies: Rhinorrhea, Sore throat Cardiovascular: Reports: Chest pain. Denies: Palpitations, Heart racing Respiratory: Reports: Dyspnea, Cough - chronic, unchanged, Dyspnea on exertion, Orthopnea. Denies: Sputum Gastrointestinal: Reports: Nausea. Denies: Abdominal pain, Vomiting, Diarrhea, Melena, Hematochezia Genitourinary: Denies: Dysuria, Hematuria, Frequency Musculoskeletal: Reports: Swelling. Denies: Back pain, Extremity Pain Skin: Denies: Rash, Wounds Neurological: Denies: Headache, Weakness, Numbness Physical Exam Vital Signs/Narrative: Vital Signs Temp Pulse Resp BP Pulse Ox 04/01/19 05:20 98 04/01/19 05:15 160/80 H 04/01/19 05:13 98.9 F 86 17 142/62 H 94 Inital Vital Signs reviewed: Yes General: Well nourished, Well developed, No Acute Distress Head: Normocephalic, Atraumatic Eyes: Perrl, EOMI ENT: Moist mucous membranes, No rhinorrhea Neck: Supple, Nontender, No lymphadenopathy, No JVD Cardiovascular: No murmurs, Irregular, Tachycardia - borderline Respiratory: No distress, Chest nontender, Rhonchi - bibasilar Abdomen: Soft, Nontender, Nondistended, Normal bowel sounds Back: Nontender, Normal Inspection Extremities: Nontender, Edema - BLE 2+/4, symmetric. Negative for: Calf Tenderness Skin: Normal color, No rash, No Trauma Neurological: Alert, Oriented x3, Cranial nerves II-XII grossly intact, Normal Strength, Normal Sensation Psychological: Normal affect, Normal Mood Diagnostic/Tx/Re-eval Impressions Chest X-Ray 04/01/19 05:20 IMPRESSION: Cardiomegaly with no failure or pneumonia. No pleural effusions. Electronically Signed: Gerardo Zavala MD at 6:00 EDT Tel , Service support , 04/01/19 05:20 Chest 1 View (Portable) [RAD] Stat Laboratory Results 04/01/19 04/01/19 06:32 06:32 WBC 11.9 H RBC 4.66 Hgb 13.8 Hct 42.5 MCV 91.2 MCH 29.6 MCHC 32.5 RDW 15.7 H RDW Differential 52.3 H Plt Count 136 L MPV 10.7 Immature Gran % (Auto) 0.300 Neut % (Auto) 77.4 H Lymph % (Auto) 10.0 L Bennett % (Auto) 11.5 H Eos % (Auto) 0.7 Baso % (Auto) 0.1 Absolute Neuts (auto) 9.2 H Absolute Lymphs (auto) 1.19 Total Counted Not Reportable Sodium 141 Potassium 3.5 Chloride 106 Carbon Dioxide 26.0 Anion Gap 9 BUN 21 H Creatinine 1.07 H Estim Creat Clear Calc 37.59 Est GFR (MDRD) Af Amer 65 Est GFR (MDRD) Non-Af 54 L BUN/Creatinine Ratio 19.6 Glucose 136 H Calcium 9.2 Troponin I < 0.015 - Rhythm Strip Rhythm Strip: A-fib Rate: 103 Ectopy: None - EKG Initial EKG Interpretation: Atrial Fibrillation, Non-Specific ST Changes Prior: Unchanged Treatment - Dyspnea: Oxygen, Albuterol, - - IV Lasix Repeat Evaluation: Improved - Medical Decision Making Given her symptoms and history, I suspect she is having an exacerbation of congestive heart failure. Her chest x-ray shows no evidence of interstitial edema or pleural effusion or infiltrate/consolidation. Her labs show fairly good renal function for her, blood counts are good, and her troponin is negative. Brain natruretic peptide is still pending. She was treated with IV Lasix and an albuterol treatment. After only those medications in addition to oxygen, she states her chest discomfort resolved and she feels like she is breathing much better. We ambulated her throughout the department. She did not feel dyspneic or have any exertional chest discomfort. After walking to the other end of the emergency department, her pulse ox while ambulating was 88-89%, but recovered quickly with walking and did not go lower than that. She now is 92% on room air. I discussed outpatient versus inpatient treatment, she was offered either and prefers to go home. I discussed with Dr. Childers, he agrees with increasing her daily Lasix to twice daily and having her follow-up as an outpatient, and requests another Lasix 20mg dose here prior to discharge. ED Disposition - Plan for ED Patient: Disposition: Home or Assisted Living Diagnosis: CHF exacerbation, Chest pain, unspecified Instructions: CHF, General Referrals: Epifanio Childers MD [STAFF PHYSICIAN] - (call for appt to be seen this week, or as soon as possible thereafter) Additional Instructions: Instead of taking her Lasix once daily, take one 20 mg pill twice daily for the next 5-6 days or until you see Dr. Childers.
[2019-04-01] MEDS: Albuterol 2.5 MG/3 ML VIAL.NEB. INHALATION (05:51)
[2019-04-01 05:53] VITALS: PULSE 86; RESP 30
--- NOTE | 2019-04-01 06:03 | ED.RN ---
AFTER UNSUCCESSFUL ATTEMPTS TO GET BLOOD, LAB HAS BEEN CALLED TO COME AND DRAW BLOOD.
[2019-04-01 06:47] LABS: Absolute Lymphocyte Count 1.19 X10^3/ul (0.83-4.51); Absolute Neutrophil Count 9.2 X10^3/uL (2.0-7.7); Basophil# 0.01 X10^3/uL; Basophil% 0.1 % (0-1); Eosinophil# 0.08 X10^3/uL; Eosinophils% 0.7 % (0-5); Hematocrit 42.5 % (37-47); Hemoglobin 13.8 g/dl (12.0-15.0); Lymphocyte # 1.19 X10^3/ul (4.0); Mean Corp Hgb Conc 32.5 g/gl (32-36); Mean Corpuscular Hgb 29.6 pg (27.0-32.0); Mean Corpuscular Volume 91.2 fL (81-99); Mean Platelet Vol. 10.7 fl (6.2-12.0); Monocyte# 1.37 X10^3/uL; Monocyte% 11.5 % (0-10); Neutrophil # 9.22 X10^3/uL (2.7-7.7); Neutrophil % 77.4 % (47-70); Platelet Count 136 K/mm3 (150-450); RBC Distribution Width CV 15.7 % (11.6-14.6); RBC Distribution Width SD 52.3 fl (35.1-43.9); Red Blood Count 4.66 M/mm3 (4.2-5.4); White Blood Count 11.9 K/mm3 (4.4-11.0)
[2019-04-01] MEDS: Furosemide 20 MG/2 ML VIAL IV ×2 (06:48→08:57)
[2019-04-01 06:54] LABS: POSITIVE COUNT NO; POSITIVE DIFFERENTIAL NO; POSITIVE MORPHOLOGY NO
[2019-04-01 07:01] LABS: Anion Gap 9 (5-15); BUN 21 mg/dL (7-18); BUN/Creat Ratio 19.6 RATIO (10-20); Calcium,Total 9.2 mg/dL (8.5-10.1); Chloride 106 mmol/L (98-107); Creatinine, Serum 1.07 mg/dL (0.55-1.02); EST Glomerular Filtration Rate 54 mL/min (>60); Est Glom Filt Rate - Afr Amer 65 mL/min (>60); Estimated Creatinine Clearance 37.59 ml/min; Glucose 136 mg/dL (74-106); Potassium 3.5 mmol/L (3.5-5.1); Sodium Level 141 mmol/L (136-145)
--- NOTE | 2019-04-01 08:00 | NURSING ---
PT SATS 91-92% AT REST ON RA. UP TO WALK WITH POX AND AMB TO BACK HALLWAY. HR 120 AND SPO2 WITH MOD EXERTION WAS 89%. RECOVERED QUICKLY TO 91% WITH REST. DENIES FEELING ANYMORE SOB THAN USUALLY DOES. PT AMB BACK AROUND NURSES DESK TO [facility] ENTRANCE AND DESATED TO 88% THOUGH MILD SOB NOTED. BACK TO ROOM AND REMAINS ON RA. SPO2 UP TO 91-92%. DR. GARRETT.
[2019-04-01 08:31] LABS: BNP,B-Type NATRIURETIC PEPTIDE 184.5 pg/mL (0-100)
[2019-04-01] MEDS: Ondansetron 4 MG/2 ML Vial IV (08:57)
[2019-04-01 09:02] VITALS: PULSE 92; RESP 31; O2SAT 92
== END 2019-04-01 09:13 | disposition home or self-care (01) ==
PROVIDERS: Emergency Provider Emergency Medicine; Family Provider Internal Medicine; PCP Internal Medicine
DX: R07.9 Chest pain, unspecified (principal); I50.32 Chronic diastolic (congestive) heart failure; I48.91 Unspecified atrial fibrillation; E11.22 Type 2 diabetes mellitus with diabetic chronic kidney disease; E11.51 Type 2 diabetes mellitus with diabetic peripheral angiopathy without gangrene; F32.9 Major depressive disorder, single episode, unspecified; I13.0 Hypertensive heart and chronic kidney disease with heart failure and stage 1 through stage 4 chronic kidney disease, or unspecified chronic kidney disease; I27.20 Pulmonary hypertension, unspecified; G47.33 Obstructive sleep apnea (adult) (pediatric); Z88.1 Allergy status to other antibiotic agents; Z88.2 Allergy status to sulfonamides; Z90.49 Acquired absence of other specified parts of digestive tract; Z88.5 Allergy status to narcotic agent; M48.061 Spinal stenosis, lumbar region without neurogenic claudication; I87.2 Venous insufficiency (chronic) (peripheral); N18.3 Chronic kidney disease, stage 3 (moderate); Z90.710 Acquired absence of both cervix and uterus; Z86.14 Personal history of Methicillin resistant Staphylococcus aureus infection
CPT/HCPCS: 36415; 71045; 80048; 83880; 84484; 85025; 93005; 94640; 99285; A4216; J1940; J2405

== ENCOUNTER 2019-04-07 22:40 | Inpatient (IN) | payer MEDICARE, SELFPAY ==
[2019-04-03 12:46] VITALS: BMI 36.0
[2019-04-07 22:40] VITALS: PULSE 34; RESP 17; TEMP 37.1; O2SAT 93; BMI 34.7
[2019-04-07 22:41] VITALS: BP 98/77; PULSE 33; RESP 15; O2SAT 93
[2019-04-07] MEDS: Heparin Injection (Vial) 5,000 UNIT/ML VIAL 4000 UNIT IV (22:45)
[2019-04-07] MEDS: Atropine Sulfate 1 MG/10 ML Syringe IV (22:48)
--- NOTE | 2019-04-07 22:51 | ED.DCSUM_ITS ---
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 Prehospital EKG reveals an acute inferior myocardial infarction. There are no P waves noted. There is concern for the dissociation. Patient arrived pale, diaphoretic with decreased level of conscious. Patient is hypotensive. History is limited because of acuity of situation. Prior similar symptoms: No Recent Illness/Hospitalization: Yes - For congestive heart failure - Past Medical History (1) Anemia Status: Acute (2) Chronic A. fib on Xarelto Status: Acute (3) GI bleeding Status: Acute (4) Recurrent falls Status: Acute (5) Acute on chronic diastolic (congestive) heart failure Status: Chronic (6) Diabetes mellitus Status: Chronic Past Medical History - Allergies and Home Meds Allergies/Adverse Reactions: Allergies amlodipine besylate [From Norvasc] Allergy (Verified 04/03/19 12:50) Unknown ceftriaxone Allergy (Verified 04/03/19 12:50) Rash doxazosin [From Cardura] Allergy (Verified 04/03/19 12:50) Unknown doxazosin mesylate [From Cardura] Allergy (Verified 04/03/19 12:50) Other VEINS TURNED RED doxycycline Allergy (Verified 04/03/19 12:50) Unknown Pt doesn't remember enalapril maleate [From Vasotec] Allergy (Verified 04/03/19 12:50) Rash enalaprilat dihydrate [From Vasotec] Allergy (Verified 04/03/19 12:50) Rash hydroxyzine HCl [From Vistaril] Allergy (Verified 04/03/19 12:50) Rash hydroxyzine pamoate [From Vistaril] Allergy (Verified 04/03/19 12:50) Rash meperidine HCl [From Demerol] Allergy (Verified 04/03/19 12:50) Rash Sulfa (Sulfonamide Antibiotics) Allergy (Verified 04/03/19 12:50) Hives sulfamethoxazole [From Bactrim] Allergy (Verified 04/03/19 12:50) Hives trimethoprim [From Bactrim] Allergy (Verified 04/03/19 12:50) Hives Primary Care Physician: Aaron Tidwell MD [Primary Care Provider] - Prior records reviewed: Yes Surgical History: cataract, cholecystectomy, hysterectomy, - - s/p MAZE procedure, loop recorder. Lives: Spouse/ Significant Other Smoking Status: Never smoker Alcohol: None - Family History Maternal Family History: Family History (Last Reviewed 10/08/18 @ 08:36 by Maggy Dukes) Mother Diabetes Brother Diabetes Myocardial infarction Cancer Son Hypertension Daughter Arthritis Diabetes Hypertension Brother Cancer Family History: Reports: No pertinent history Paternal Family History: Family History (Last Reviewed 10/08/18 @ 08:36 by Maggy Dukes) Mother Diabetes Brother Diabetes Myocardial infarction Cancer Son Hypertension Daughter Arthritis Diabetes Hypertension Brother Cancer Family History: Reports: No pertinent history Review of Systems ROS: Unable to Obtain - Because of acuity of situation Cardiovascular: Reports: Chest pain Respiratory: Reports: Dyspnea Neurological: Reports: Weakness Physical Exam Vital Signs/Narrative: Vital Signs Resp BP 04/07/19 22:41 15 98/77 Inital Vital Signs reviewed: Yes - Blood pressure prior to transport to [facility] was 80 General: Well nourished, Well developed, Obese, Acute Distress Head: Normocephalic, Atraumatic Eyes: Perrl, EOMI. Negative for: Pale conjunctiva, Scleral icterus ENT: Moist mucous membranes, No rhinorrhea Neck: Supple, Nontender, No lymphadenopathy, No JVD Cardiovascular: Regular rhythm, No murmurs, Normal S1, Normal S2, Bradycardia Respiratory: No distress, Chest nontender, Rales - At the bases Abdomen: Soft, Nontender, Nondistended, Normal bowel sounds Rectal: Deferred Back: Nontender, Normal Inspection Extremities: Nontender, Edema Skin: Diaphoresis, Pallor. Negative for: Jaundice, No Trauma Neurological: Cranial nerves II-XII grossly intact, Normal Strength, Normal Sensation. Negative for: Alert, Normal Gait Psychological: Normal affect Diagnostic/Tx/Re-eval Appropriate labs were drawn. Results were not available prior to transport to [facility]. Pre-hospital EKG reveals bradycardia with acute inferior myocardial infarction with supra changes. The last EKG to be transmitted reveals AV dissociation/junctional rhythm. - Medical Decision Making Because patient is hypotensive she received 1 mg of atropine, 500 cc bolus. [facility] was made aware of patient's hemodynamic status. - Critical Care Time Critical care time (excluding procedures): Discussing w/Patient &/or Family/Wire Drawer - Care time 10 minutes, Discussing w/Consultants, Arranging Admission or Transfer, Performing Direct Patient Care at Bedside ED Disposition - Plan for ED Patient: Disposition: Acute Care Hospital [facility] Diagnosis: Cardiogenic shock, Acute inferior myocardial infarction, Bradycardia by electrocardiogram, Junctional rhythm Referrals: Aaron Tidwell MD [Primary Care Provider] -
--- NOTE | 2019-04-07 23:11 | ED.RN ---
BILINTA 180MG GIVEN BY [facility] AT 2233. 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
--- NOTE | 2019-04-07 23:27 | ED.RN ---
THIS RN SPOKE WITH SON OF PT. SON WAS ABLE TO GIVE SOME MINOR MEDICAL INFORMATION BUT UNABLE TO DISCLOSE ALLERGIES, MEDICATIONS AND EXTENSIVE MEDICAL HISTORY.
--- NOTE | 2019-04-07 23:53 | PCM.HP.STD ---
Problem List (1) Chest pain Status: Acute Qualifiers: Ischemic chest pain type: unstable angina pectoris (2) Acute inferior myocardial infarction Status: Acute (3) Bradycardia by electrocardiogram Status: Acute (4) Chronic kidney disease, stage 3 Status: Chronic (5) LYN on CPAP Status: Chronic History of Present Illness Date of Admission: 04/07/19 Chief Complaint: Chest pain The patient is a 73 year old F with past medical history of chronic atrial fibrillation, hypertension, history of GI bleed, not on anticoagulation, CKD stage III, chronic diastolic CHF, possible sarcoidosis of her kidneys, on prednisone who comes in with complaints of chest discomfort as well as shortness of breath that happened at rest. Patient was watching a TV program in the evening when she realized that she was short of breath and her chest discomfort. She tested her oxygen saturation and it was low and she also noticed that her heart rate reading was 46. called the EMS and when the EMS got there her heart rate was 34. She says she is been battling an acute flare of gout in both feet ongoing for by a week. She denies any fever or chills or nausea or vomiting. EKG done in the field showed confirmed inferior NC. STEMI alert was called, patient underwent cardiac cath showed 100% occlusion of the distal RCA with successful thrombectomy and BMS to RCA. Patient subsequently was transferred to the ICU. At the time of being seen in ICU she denied any chest pain or dizziness or shortness of breath. She still had a pain in both feet that was about 2-4 out of 10. Her vitals were temp 98.7F, HR 34, BP 98/77, RR 17, spo2 was 93% on room air Blood work showed WBC 16.5, Hb 14.4, Plt 241, sodium is 136, potassium 3.2, chloride 100, bicarbonate 25, BUN 35, creatinine 1.59 Past Medical History Past Medical History (Chronic Problems): Chronic Problems (Last Reviewed 10/08/18 @ 08:36 by Maggy Dukes) MRSA (methicillin resistant staph aureus) culture positive (Chronic) Chronic kidney disease, stage 3 (Chronic) Venous insufficiency (chronic) (peripheral) (Chronic) Right leg pain (Chronic) Calciphylaxis (Chronic) Ulcer of left lower extremity with fat layer exposed (Chronic) Pain in right leg (Chronic) Pain in left leg (Chronic) Delayed wound healing (Chronic) Localized edema (Chronic) Other 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 coordinator (current) drug therapy (Chronic) Abnormal screening CT of chest (Chronic) LYN on CPAP (Chronic) Acute on chronic diastolic (congestive) heart failure (Chronic) Calcinosis (Chronic) Edema (Chronic) Pulmonary hypertension (Chronic) Atrial fibrillation (Chronic) Chronic diastolic heart failure (Chronic) Diabetes mellitus (Chronic) Chronic kidney disease (Chronic) Lumbar spinal stenosis (Chronic) PAOD (peripheral arterial occlusive disease) (Chronic) Venous stasis ulcer (Chronic) Depression (Chronic) Neuropathic pain (Chronic) Edema, lower extremity (Chronic) Pulmonary hypertension, secondary (Chronic) History of cardiac radiofrequency ablation (RFA) (Chronic) 1st part of MAZE procedure Lt Atrial Ablation 01/12/17 @ [facility] Dyspnea on exertion (Chronic) Localized edema (Chronic) Heart failure with 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 (Chronic) 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 calciphylaxis vs. erythema nodosum vs. dermatomyositis vs. panniculitis Mass of soft tissue of right lower extremity (Chronic) right inner upper thigh - ? calciphylaxis vs. erythema nodosum vs. dermatomyositis vs. panniculitis Medical History: Medical History (Last Reviewed 10/08/18 @ 08:36 by Maggy Dukes) Venous insufficiency (chronic) (peripheral) (Chronic) I87.2 Right leg pain (Chronic) M79.604 Ulcer of left lower extremity with fat layer exposed (Resolved) L97.922 Calciphylaxis (Chronic) E83.59 Ulcer of left lower extremity with fat layer exposed (Chronic) L97.922 Ulcer of right lower extremity with fat layer exposed (Resolved) L97.912 Pain in right leg (Chronic) M79.604 Pain in left leg (Chronic) M79.605 Delayed wound healing (Chronic) T14.8XXD Localized edema (Chronic) R60.0 Other jail (current) drug therapy (Chronic) Z79.[address] of chest (Chronic) R93.8 LYN on CPAP (Chronic) G47.33, Z99.89 Acute on chronic diastolic (congestive) heart failure (Chronic) I50.33 Calcinosis (Chronic) E83.59 Lower GI bleed (Acute) K92.2 Chronic A. fib on Xarelto (Acute) Recurrent falls (Acute) R29.6 Generalized weakness (Acute) Weakness (Acute) R53.1 Anemia (Acute) D64.9 Edema (Chronic) R60.9 Pulmonary hypertension (Chronic) I27.20 Atrial fibrillation (Chronic) I48.91 Chronic diastolic heart failure (Chronic) I50.32 Diabetes mellitus (Chronic) E11.9 Chronic kidney disease (Chronic) N18.9 Lumbar spinal stenosis (Chronic) M48.061 PAOD (peripheral arterial occlusive disease) (Chronic) I77.9 Venous stasis ulcer (Chronic) I83.009, L97.909 Depression (Chronic) F32.9 Neuropathic pain (Chronic) M79.2 Hypokalemia (Acute) E87.6 Edema, lower extremity (Chronic) R60.0 Pulmonary hypertension, secondary (Chronic) Dyspnea on exertion (Chronic) R06.09 Heart failure with 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 (Chronic) I50.30 Cellulitis (Resolved) L03.90 intermediate card tender current use of anticoagulant (Chronic) Z79.01 Chronic atrial fibrillation (Chronic) I48.2 DCCV 10/10, 10/2015; MAZE procedure @ [facility] 01/12/2017; Status post placement of implantable loop recorder (Chronic) Z95.818 Loop recorder implant 01/03/[address] Roach Other secondary pulmonary hypertension (Chronic) I27.29 Chronic diastolic (congestive) heart failure (Chronic) I50.32 GI bleeding (Acute) K92.2 Symptomatic anemia (Chronic) D64.9 Hypertension (Chronic) I10 Type 2 diabetes mellitus (Chronic) E11.9 Lung nodule (Chronic) R91.1 Coumadin-induced coagulopathy (Resolved) Chronic kidney disease, stage 3 (Chronic) Shortness of breath (Acute) R06.02 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) M48.061, M54.16 PAD (peripheral artery disease) (Chronic) I73.9 Venous stasis ulcer of left lower leg with edema of left lower leg (Chronic) I83.892, I83.028, R60.9 Venous stasis ulcer of right lower leg with edema of right lower leg (Chronic) I83.891, I83.018, R60.9 Arthralgia (Chronic) M25.50 Myalgia (Chronic) M79.1 Mass of soft tissue of left lower extremity (Chronic) R22.42 left inner upper thigh - ? calciphylaxis vs. erythema nodosum vs. dermatomyositis vs. panniculitis Mass of soft tissue of right lower extremity (Chronic) R22.41 right inner upper thigh - ? calciphylaxis vs. erythema nodosum vs. dermatomyositis vs. panniculitis Sarcoidosis D86.9 GERD (gastroesophageal reflux disease) K21.9 LYN (obstructive sleep apnea) G47.33 Hypersomnia G47.10 Allergies amlodipine besylate [From Norvasc] Allergy (Verified 04/03/19 12:50) Unknown ceftriaxone Allergy (Verified 04/03/19 12:50) Rash doxazosin [From Cardura] Allergy (Verified 04/03/19 12:50) Unknown doxazosin mesylate [From Cardura] Allergy (Verified 04/03/19 12:50) Other VEINS TURNED RED doxycycline Allergy (Verified 04/03/19 12:50) Unknown Pt doesn't remember enalapril maleate [From Vasotec] Allergy (Verified 04/03/19 12:50) Rash enalaprilat dihydrate [From Vasotec] Allergy (Verified 04/03/19 12:50) Rash hydroxyzine HCl [From Vistaril] Allergy (Verified 04/03/19 12:50) Rash hydroxyzine pamoate [From Vistaril] Allergy (Verified 04/03/19 12:50) Rash meperidine HCl [From Demerol] Allergy (Verified 04/03/19 12:50) Rash Sulfa (Sulfonamide Antibiotics) Allergy (Verified 04/03/19 12:50) Hives sulfamethoxazole [From Bactrim] Allergy (Verified 04/03/19 12:50) Hives trimethoprim [From Bactrim] Allergy (Verified 04/03/19 12:50) Hives Home Medications: Ambulatory Orders Medication Instructions Recorded prednisone 10 mg tablet 5 mg PO DAILY tab 10/08/18 metoprolol tartrate 50 mg tablet 50 mg PO BID #180 tab 04/03/19 Furosemide 40 mg PO DAILY 04/08/19 Surgical History: Surgical History (Last Reviewed 10/08/18 @ 08:36 by Maggy Dukes) History of cardiac radiofrequency ablation (RFA) (Chronic) Z98.890 1st part of MAZE procedure Lt Atrial Ablation 01/12/17 @ [facility] History of maze procedure (Chronic) Z98.890 S/P PICC central line placement Z95.828 H/O skin graft Z98.890 08/01/18 @ [facility] History of hysterectomy Z90.710 History of loop recorder Z98.890 Implant: 01/03/[address] Roach History of lymph node excision Z98.890 x 2 History of patent ductus arteriosus Z87.74 closure History of removal of skin mole Z98.890, Z87.2 S/P laparoscopic cholecystectomy Z90.49 Status post laparoscopic [place] fundoplication Z98.890 h/o left foot surgery Surgical History: cataract, cholecystectomy, hysterectomy, - - s/p MAZE procedure, loop recorder. 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 history Lives: Spouse/ Significant Other Smoking Status: Unknown if ever smoked Alcohol: None - *Family History Maternal Family History: Family History (Last Reviewed 10/08/18 @ 08:36 by Maggy Dukes) Mother Diabetes Brother Diabetes Myocardial infarction Cancer Son Hypertension Daughter Arthritis Diabetes Hypertension Brother Cancer History Items: No pertinent history Paternal Family History: Family History (Last Reviewed 10/08/18 @ 08:36 by Maggy Dukes) Mother Diabetes Brother Diabetes Myocardial infarction Cancer Son Hypertension Daughter Arthritis Diabetes Hypertension Brother Cancer History Items: No pertinent history Review of Systems Constitutional: Denies: Anorexia, Chills, Fever, Malaise, Weakness, Weight Change, Fatigue Eyes: Denies: Blurred vision, Cataracts, Conjunctivae Inflammation, Pain, Redness, Vision Change HEENT: Denies: Difficulty Hearing, Difficulty Swallowing, Head Aches, Hearing Changes, Nasal bleeding, Sinus Congestion, Sinus Drainage Cardiovascular: Reports: Chest Pain, Chest Pressure, Chest Tightness, Light Headedness. Denies: Claudication, Orthopnea, Palpitations, Paroxysmal Noc. Dyspnea Respiratory: Reports: Shortness of breath at rest, Shortness of breath upon exertion. Denies: Cough, Sputum production Gastrointestinal: Denies: Abdominal Pain, Constipation, Hematemesis, Hematochezia, Nausea, Vomiting Genitourinary: Denies: Dysuria Gynecological: Denies: Breast symptoms, Excessively long or heavy periods, Vaginal discharge, Vaginal itching Musculoskeletal: Denies: Joint Pain, Joint stiffness, Joint swelling, Joint Tenderness Skin: Denies: Rash, Wounds Neurological: Denies: Numbness, Tingling, Focal weakness Psychiatric: Denies: Anxiety, Depression, Homicidal Ideations, Suicidal Ideations Hematologic/ Lymphatic: Denies: Easy Bruising, Easy Bleeding VTE Information - Inpt Only VTE Present on Admission: No VTE Pharm Prophylaxis ordered?: Yes Patient Problems: Active and Suspected Problems (Last Reviewed 10/08/18 @ 08:36 by Maggy Dukes) Cardiogenic shock (Acute) Acute inferior myocardial infarction (Acute) Bradycardia by electrocardiogram (Acute) Junctional rhythm (Acute) Chest pain (Acute) - Physical Exam General: Alert, Oriented x3, Cooperative, No apparent distress HEENT: Atraumatic, PERRLA, EOMI, Normocephalic Oral: Moist Mucosa Neck: Supple Lungs: Clear to auscultation, Normal air movement Cardiovascular: Regular rate, Regular Rhythm, Normal S1, Normal S2, No murmurs Abdomen: Bowel Sounds Present, Soft, Non Tender, Non-Distended, No Hepato-splenomegaly Extremities: Edema - trace bilateral edema, erythema of toes on the right with swelling of the 1st MTP, erythema and swelling of dorsum of the feet, on the metatarsal region. Skin: No rashes, No breakdown Musculoskeletal: No Tenderness to Palpation of Joints or Extremities Lymphatic: No Cervical, Supraclavicular, or Inguinal Adenopathy Neurological: Cranial nerves II-XII grossly intact, Neuro grossly intact Psych/Mental Status: Normal Affect, Appropriate Vital Signs Temp Pulse Resp BP Pulse Ox 98.7 F 34 L 15 98/77 93 04/07/19 22:40 04/07/19 22:40 04/07/19 22:41 04/07/19 22:41 04/07/19 22:40 Weight: 88.9 kg Body Mass Index (BMI) 34.7 Finger Stick Blood Glucose 124 Assessment/Plan All Active Problems (Last Reviewed 10/08/18 @ 08:36 by Maggy Dukes) Cardiogenic shock (Acute) Acute inferior myocardial infarction (Acute) Bradycardia by electrocardiogram (Acute) Junctional rhythm (Acute) Chest pain (Acute) Colonization status (Acute) Ulcer of left lower extremity with fat layer exposed (Resolved) Ulcer of right lower extremity with fat layer exposed (Resolved) Lower GI bleed (Acute) Chronic A. fib on Xarelto (Acute) Recurrent falls (Acute) Generalized weakness (Acute) Weakness (Acute) Anemia (Acute) Hypokalemia (Acute) Cellulitis (Resolved) GI bleeding (Acute) Coumadin-induced coagulopathy (Resolved) Shortness of breath (Acute) 73 year old F with past medical history of chronic atrial fibrillation, hypertension, history of GI bleed, not on anticoagulation, CKD stage III, chronic diastolic CHF, possible sarcoidosis of her kidneys, on prednisone who comes in with complaints of chest discomfort as well as shortness of breath that happened at rest. 1. Acute inferior STEMI, JESUS score 9, status post cardiac cath which showed 100% RCA occlusion, status post successful thrombectomy and BMS to RCA Heart rate improved, on aspirin, Brilinta, statin, beta-alok, continue per post STEMI protocol. Will be monitoring for possible GI bleed. 2. Acute gouty flare of both feet, on chronic prednisone for sarcoidosis, increase prednisone to 20 mg daily 3. Chronic atrial fibrillation, history of maze procedure, rate controlled, not on anticoagulation on account of history of GI bleed 4. Hypertension, controlled, continue on metoprolol, continue to monitor vitals 5. CKD stage III, appears stable 6. Chronic diastolic CHF, no signs of acute exacerbation, will hold Lasix for now on account of recent contrast, may resume Lasix in the next few days 7. Possible sarcoidosis, on chronic prednisone 8. DVT PPx-patient to be reevaluated and possibly start heparin subcu from 04/08/19 Code Visit Inpatient E&M: 22262 Init Hosp L3
[2019-04-08] VITALS (36 sets, daily range): BP systolic 96–148; BP diastolic 30–86; PULSE 55–75; RESP 14–31; TEMP 36.1–36.2; O2SAT 92–100; BMI 35.9; BMI 36.0; BMI 35.8
--- NOTE | 2019-04-08 00:30 | EKG12_ITS ---
Test Reason : AM EKG Blood Pressure : / mmHG Vent. Rate : 063 BPM Atrial Rate : 065 BPM P-R Int : 000 ms QRS Dur : 088 ms QT Int : 452 ms P-R-T Axes : 000 044 038 degrees QTc Int : 462 ms Atrial fibrillation Abnormal ECG When compared with ECG of 01-APR-2019 05:16, Vent. rate has decreased BY [address] elevation now present in Inferior leads ST no longer depressed in Anterolateral leads Nonspecific T wave abnormality now evident in Lateral leads QT has lengthened Confirmed by AMANDA BACON, PRATEEK ([id number]), magazine editor KOJO CAMARA ([id number]) on 04/12/2019 1:52:07 PM Referred By: Charline Magallon Confirmed By:GABY MAGALLON MD
--- NOTE | 2019-04-08 00:35 | CL.I_ITS ---
Patient Name: JACQUES CARTER Study Date: 04/07/2019 Performing: Lobo Magallon MD Ht: 62 inches 157.48 cm : 1945 Wt: 184.99 lbs 83.91 kg Age: 73 Gender: female BSA: 1.85 PROCEDURE(S) PERFORMED BV81-NON/COR [id number], BMS AND/OR PTCA ARTERY OR GRAFT SINGLE VESSEL CLINICAL PROFILE AND CO-MORBIDITIES Indications: ACS <= 24 hrs Heart Failure: None Stress/Imaging Stress/Image Study Performed: No CAD Presentations: STEMI. Symptom onset Date/Time: 04/07/19 Time Not Available CONCLUSIONS CAD as described with 100% occlusion of the distal RCA which is the culprit for presentation Successful thrombectomy and BMS to RCA RECOMMENDATIONS Follow up with primary public address system mechanic ASA Indefinitley Brilinta for at least1 month and ideally for 12 months Risk factor modification DESCRIPTION OF PROCEDURE The patient arrived to the procedure lab. The risks and benefits of the procedure as well as a full d escription of our services here and lack of surgical backup were fully explained to the patient and/o r their significant other prior to the catheterization. The Timeout was completed, verifying the kevyn ect patient and procedure. The patient's procedural site was prepped and draped in the usual fashion. Local anesthetic was given subcutaneously to right radial region with Lidocaine 2%. Using a modified Seldinger technique, arterial access was obtained via the right radial artery, a 6Fr sheath was inse rted.. Left Coronary Artery selective angiography was performed in multiple views using a 5 Fr. JL3. 5 catheter. Right Coronary Artery selective angiography was then performed in multiple views using a 6 Fr. JR 4 guide catheter BMW Wesley Wire Guide wire was advanced to the RCA. [place] AP inserted Pass # 1 [place] AP Terrell rocky [place] AP inserted Pass #2 Emerge 2.0 x 12 Balloon catheter was inserted. [place] AP Removed Ballo on catheter was advanced across lesion in the right coronary, distal. PTCA balloon inflated at 10 brandt s for 12 secs. PTCA balloon inflated at 6 atms for 23 secs. Angiogram performed post balloon dilatati on. [place] AP inserted pass #3 [place] AP Removed Emerge 3.0x 15 Balloon catheter was inserted. Balloo n catheter was advanced across lesion in the right coronary, distal. Angiogram performed pre balloon dilatation. PTCA balloon inflated at 6 atms for 7 secs. PTCA balloon inflated at 6 atms for 9 secs. A ngiogram performed post balloon dilatation. Rebel 3.0 x 16 Bare Metal stent was inserted Bare Metal s tent was advanced across the lesion in the right coronary, distal. Angiogram performed pre stent depl oyment. Angiogram performed post stent deployment. The arterial sheath was pulled and a TR Band was applied for hemostasis CORONARY ANGIOGRAPHY DOMINANCE: Right Dominant LEFT HEART ASSESSMENT Left Ventricular Ejection Fraction: Not assessed LEFT MAIN: Mild luminal irregularities LEFT ANTERIOR DESCENDING ARTERY: Mild luminal irregularities CIRCUMFLEX ARTERY: Mild luminal irregularities RIGHT CORONARY ARTERY: DISTAL RCA: 100 % Stenosis INTERVENTION INFORMATION LESION SITE: RCA (Distal) Lesion Complexity: High/C, chronic total occlusion: No, lesion at bifurcation: No, thrombus present: Yes, lesion length: 14 mm, culprit lesion: Yes, Previously treated lesion: No Pre Stenosis: 100 % Pre intervention JESUS flow: 0 PROCEDURE: Thrombectomy, Bare Metal Stent with pre dilatation. Post Stenosis: 0 % Post intervention JESUS flow: 3 Lesion Devices: Cordis 6 Fr JR4 100cm Guide Catheter Patrice Sci EMERGE MR 2.00x12 BALLOON Hobson .014 BMW Wesley Straight 190cm Patrice Sci EMERGE MR 3.00x15 BALLOON Patrice Sci Rebel MR BMS 3.00x16 COMPLICATIONS No Complications PROCEDURE MEDICATIONS Oxygen: 4 L/min via nasal cannula Aggrastat Bolus: 15.4 mg 04/07/2019 23:21:26 Aggrastat Bolus: 15.4 mg 04/07/2019 23:21:26 Atropine 1mg/10ml 1 amp @ 04/07/2019 23:32:37 Heparin given IA 04/07/2019 23:23:33 Nitro 100 mcg IC 04/07/2019 23:39:19 Zofran 4 mg IV 04/07/2019 23:47:26 IV Bolus: .9 NaCl 700 ml total 04/07/2019 23:05:25 SUMMARY OF HEMODYNAMIC DATA Time AIR REST ECG 22:58:25 AO 72/31 (45) SA 23:25:45 Signed By Lobo Magallon MD On 04/08/2019 12:34:26 AM Lobo Magallon MD
[2019-04-08 01:00] LABS: Hematocrit 42.7 % (37-47); Hemoglobin 14.4 g/dl (12.0-15.0); Mean Corp Hgb Conc 33.7 g/gl (32-36); Mean Corpuscular Hgb 29.8 pg (27.0-32.0); Mean Corpuscular Volume 88.2 fL (81-99); Mean Platelet Vol. 11.2 fl (6.2-12.0); Platelet Count 241 K/mm3 (150-450); RBC Distribution Width CV 14.9 % (11.6-14.6); Red Blood Count 4.84 M/mm3 (4.2-5.4); Scan Indicated on CBC? Y/N NO; White Blood Count 16.5 K/mm3 (4.4-11.0)
[2019-04-08] MEDS: Morphine 2 MG/ML Syringe IV (01:22)
[2019-04-08] MEDS: 0.9% Normal Saline 1,000 ML 100 ML IV (01:23)
[2019-04-08 02:40] LABS: ALB/GLOB Ratio 0.7 RATIO (0.9-2.4); AST(SGOT) 200 U/L (15-37); Alanine Aminotransfer ALT/SGPT 36 U/L (13-56); Alkaline Phosphatase 80 U/L (45-117); Anion Gap 11 (5-15); BUN 35 mg/dL (7-18); Calcium,Total 8.6 mg/dL (8.5-10.1); Chloride 100 mmol/L (98-107); Creatinine, Serum 1.59 mg/dL (0.55-1.02); EST Glomerular Filtration Rate 34 mL/min (>60); Est Glom Filt Rate - Afr Amer 41 mL/min (>60); Globulin 4.2 g/dL (2.2-4.2); Glucose 175 mg/dL (74-106); Potassium 3.2 mmol/L (3.5-5.1); Protein, Total 7.2 g/dL (6.4-8.2); Sodium Level 136 mmol/L (136-145)
[2019-04-08] MEDS: Pramipexole Di-HCl 0.5 MG Tablet PO (03:01)
[2019-04-08 04:38] LABS: Hematocrit 40.2 % (37-47); Hemoglobin 13.3 g/dl (12.0-15.0); Mean Corp Hgb Conc 33.1 g/gl (32-36); Mean Corpuscular Hgb 29.4 pg (27.0-32.0); Mean Corpuscular Volume 88.9 fL (81-99); Mean Platelet Vol. 11.1 fl (6.2-12.0); Platelet Count 228 K/mm3 (150-450); RBC Distribution Width CV 14.9 % (11.6-14.6); RBC Distribution Width SD 47.6 fl (35.1-43.9); Red Blood Count 4.52 M/mm3 (4.2-5.4); Scan Indicated on CBC? Y/N NO; White Blood Count 13.7 K/mm3 (4.4-11.0)
[2019-04-08 04:52] LABS: ALB/GLOB Ratio 0.8 RATIO (0.9-2.4); AST(SGOT) 243 U/L (15-37); Alanine Aminotransfer ALT/SGPT 43 U/L (13-56); Alkaline Phosphatase 78 U/L (45-117); Anion Gap 10 (5-15); BUN 37 mg/dL (7-18); BUN/Creat Ratio 23.6 RATIO (10-20); Calcium,Total 8.7 mg/dL (8.5-10.1); Chloride 100 mmol/L (98-107); Creatinine, Serum 1.57 mg/dL (0.55-1.02); EST Glomerular Filtration Rate 34 mL/min (>60); Est Glom Filt Rate - Afr Amer 42 mL/min (>60); Estimated Creatinine Clearance 25.62 ml/min; Glucose 155 mg/dL (74-106); Potassium 3.5 mmol/L (3.5-5.1); Sodium Level 137 mmol/L (136-145)
--- NOTE | 2019-04-08 07:40 | ECHOCS_ITS ---
Reason For Study: s/p OR Procedure This was a 2D Doppler, Color Flow transthoracic echocardiogram. Exam performed portable in ICU/CCU. Left Ventricle Normal LV size. D shaped septum in diastole. The estimated ejection fraction is 60 %. Infero-Basal: Akinetic. Posterior-Basal: Severely hypokinetic. The rest of the wall segments are normal. Right Ventricle Normal RV size. Normal systolic function. Atria Normal left atrium. Normal right atrium. Mitral Valve Normal mitral valve. Tricuspid Valve Normal tricuspid valve. Moderate (2+) tricuspid valve insufficiency. Pulmonary artery systolic pressure is 70 mmHg. Moderate pulmonary hypertension. Aortic Valve Trisinus/trileaflet aortic valve. Pulmonic Valve Normal pulmonic valve. Great Vessels Moderately dilated aortic root. The pulmonary artery is normal size. The inferior vena cava is dilated. Pericardium/Pleural No pericardial effusion. Medication Diluted definity 2ml given slow IV push to enhance endocardial definition. MMode/2D Measurements & Calculations LVIDd: 3.9 cm IVSd: 0.84 cm Ao root diam: 4.0 cm LVIDs: 2.8 cm LVPWd: 1.0 cm RVDd: 2.5 cm FS: 26.9 % LAV(MOD-bp): 45.2 ml LA A4 area: 18.9 cm2 LA dimension(2D): 4.7 cm LAV(MOD-bp) Indexed: 23.8 ml/m2 LAV(MOD-sp2): 32.4 ml LAV(MOD-sp4): 48.0 ml RA A4 area: 18.9 cm2 Doppler Measurements & Calculations MV E max cathy: 105.0 cm/sec Ao V2 max: 106.4 cm/sec LV V1 max: 63.5 cm/sec Ao max P.5 mmHg LV V1 max P.6 mmHg Ao V2 mean: 71.2 cm/sec Ao mean P.2 mmHg Ao V2 VTI: 21.3 cm PA V2 max: 67.4 cm/sec PI end-d cathy: 120.9 cm/sec TR max cathy: 399.8 cm/sec TR max P.9 mmHg Interpretation Summary Normal LV size. The estimated ejection fraction is 60 %. Infero-Basal: Akinetic. Posterior-Basal: Severely hypokinetic. Moderate (2+) tricuspid valve insufficiency. Pulmonary artery systolic pressure is 70 mmHg. Moderate pulmonary hypertension. D shaped septum in diastole. Contrast injection was performed. Ordering Physician: Epifanio Childers Referring Physician: Aaron Tidwell Performed By: Marilee Breaux, RDCS, RVT
--- NOTE | 2019-04-08 07:41 | PN.CARD_ITS ---
Subjectve: Patient seen and evaluated. Objective: Vital Signs Temp Pulse Resp BP Pulse Ox 97.2 F L 66 24 H 112/51 L 98 04/08/19 04:00 04/08/19 06:00 04/08/19 06:00 04/08/19 06:00 04/08/19 06:00 Oxygen Flow Rate (L/min) 2 Oxygen Delivery Method Nasal Cannula Weight: 196 lb 10.437 oz Body Mass Index (BMI) 35.9 Finger Stick Blood Glucose 124 Intake and Output for Last 24 Hours 04/06/19 04/07/19 04/08/19 23:59 23:59 23:59 Intake Total 910 / 910 Balance 910 / 910 General: Awake, Alert, Oriented x 3 HEENT: PERRL, EOMI, Sclera Non Icteric Neck: Supple, Good ROM, No Lymph Node Enlargement Lungs: Clear to auscultation Cardiovascular: Irregular Rhythm, Normal S1, Normal S2, No Murmurs, No Rubs, No Gallops Vascular: No Carotid Bruits, Normal Femoral Pulses, Normal Radial Pulses, Normal Dorsalis Pedal Pulse, Normal Posterior Tibial Pulses Abdomen: Bowel Sounds Present, Soft, Non Tender, No HSM, No Organomegaly Extremities: No Cyanosis, No Clubbing, No edema Musculoskeletal: No Erythema Skin: No Rashes Lymphatic: No Lymph Node Enlargement Neurological: No Focal Motor or Sensory Deficit Psych/Mental Status: Appropriate 04/08/19 00:45: WBC 16.5 H, RBC 4.84, Hgb 14.4, Hct 42.7, MCV 88.2, MCH 29.8, MCHC 33.7, RDW 14.9 H, RDW Differential 48.0 H, Plt Count 241, MPV 11.2 04/08/19 02:00: Sodium 136, Potassium 3.2 L, Chloride 100, Carbon Dioxide 25.0, Anion Gap 11, BUN 35 H, Creatinine 1.59 H, Est GFR (MDRD) Af Amer 41 L, Est GFR (MDRD) Non-Af 34 L, BUN/Creatinine Ratio 22.0 H, Glucose 175 H, Calcium 8.6, Total Bilirubin 1.00 04/08/19 02:00: Troponin I 55.100 H* 04/08/19 04:25: WBC 13.7 H, RBC 4.52, Hgb 13.3, Hct 40.2, MCV 88.9, MCH 29.4, MCHC 33.1, RDW 14.9 H, RDW Differential 47.6 H, Plt Count 228, MPV 11.1 04/08/19 04:25: Sodium 137, Potassium 3.5, Chloride 100, Carbon Dioxide 27.0, Anion Gap 10, BUN 37 H, Creatinine 1.57 H, Est GFR (MDRD) Af Amer 42 L, Est GFR (MDRD) Non-Af 34 L, BUN/Creatinine Ratio 23.6 H, Glucose 155 H, Calcium 8.7, Total Bilirubin 0.80 04/08/19 04:25: Troponin I 96.300 H* Rhythm: EKG: ECHO: Stress Test: Cardiac Cath: PCI: CT Surgery: Holter monitor: EPS: PPM: CXR: Chest CT Scan: Medical Necessity - Tobacco Use Smoking Status: Unknown if ever smoked Assessment/Plan 1. Status post acute inferior myocardial infarction * Patient presented with an acute inferior myocardial infarction requiring angioplasty and stenting of the mid to distal right coronary artery successfully. Patient appears to be doing well resting comfortably with no chest pain. EKG demonstrates atrial fibrillation with a controlled ventricular response rate. * Plan will be to continue current medical therapy and obtain echocardiogram to assess left ventricular function. * Keep in the ICU for now. 2. Atrial fibrillation * She has chronic persistent atrial fibrillation. Not on anticoagulation due to previous significant GI bleed. * We will continue to observe rate control. * 3. Hypertension * Blood pressure appears to be under good control at this particular time. I would not recommend that we make any significant changes. * * Thank you for allowing me to participate in the care of your patient. Please don't hesitate to call if any issues arise
[2019-04-08 08:15] LABS: Bedside Glucose 268 mg/dL (70-110)
--- NOTE | 2019-04-08 08:59 | PN_ITS ---
Patient Problems: Active and Suspected Problems (Last Updated 04/08/19 @ 07:18 by Angie Pino) Non-ST elevation (NSTEMI) myocardial infarction (Acute 04/07/19) History of coronary artery stent placement (Acute) PCI-thrombectomy and BMS- Distal RCA w/ 3.0 x 16 mm Rebel Stent 04/07/19 Cardiogenic shock (Acute 04/07/19) Acute inferior myocardial infarction (Acute 04/07/19) Bradycardia by electrocardiogram (Acute) Junctional rhythm (Acute) Chest pain (Acute) Subjective: Feels much better today, states that she is a little bit lightheaded but she is not sure if that is because of her heart rhythm or because of her lack of food Vitals/I&O's: Vital Signs Temp Pulse Resp BP Pulse Ox 96.9 F L 64 21 H 108/61 94 04/08/19 08:00 04/08/19 08:00 04/08/19 08:00 04/08/19 08:00 04/08/19 08:00 Oxygen Flow Rate (L/min) 2 Oxygen Delivery Method Room Air Weight: 196 lb 10.437 oz Body Mass Index (BMI) 35.9 Finger Stick Blood Glucose 124 Intake and Output for Last 24 Hours 04/06/19 04/07/19 04/08/19 23:59 23:59 23:59 Intake Total 910 / 910 Balance 910 / 910 General: Alert, Oriented x3, Cooperative, No apparent distress HEENT: Atraumatic, PERRLA, EOMI, Normocephalic Oral: Moist Mucosa Neck: Supple, No JVD Lungs: Clear to auscultation, Normal air movement, No rhonchi, No wheeze, No ra les, Diminished Cardiovascular: Regular rate, Regular Rhythm, Normal S1, Normal S2, No murmurs Abdomen: Soft, Non Tender, Non-Distended, No Hepato-splenomegaly Extremities: No edema, Capillary Refill Less than 3 Seconds Skin: No rashes, No breakdown Neurological: Neuro grossly intact, Sensory exam intact to light touch and pain Psych/Mental Status: Normal Affect, Appropriate Laboratory Results 04/07/19 22:47: POC Glucose 268 H 04/08/19 00:45: WBC 16.5 H, RBC 4.84, Hgb 14.4, Hct 42.7, MCV 88.2, MCH 29.8, MCHC 33.7, RDW 14.9 H, RDW Differential 48.0 H, Plt Count 241, MPV 11.2 04/08/19 02:00: Sodium 136, Potassium 3.2 L, Chloride 100, Carbon Dioxide 25.0, Anion Gap 11, BUN 35 H, Creatinine 1.59 H, Estim Creat Clear Calc 25.30, Est GFR (MDRD) Af Amer 41 L, Est GFR (MDRD) Non-Af 34 L, BUN/Creatinine Ratio 22.0 H, Glucose 175 H, Calcium 8.6, Total Bilirubin 1.00, AST 200 H, ALT 36, Alkaline Phosphatase 80, Total Protein 7.2, Albumin 3.0 L, Globulin 4.2, Albumin/Globulin Ratio 0.7 L 04/08/19 02:00: Troponin I 55.100 H* 04/08/19 04:25: WBC 13.7 H, RBC 4.52, Hgb 13.3, Hct 40.2, MCV 88.9, MCH 29.4, MCHC 33.1, RDW 14.9 H, RDW Differential 47.6 H, Plt Count 228, MPV 11.1 04/08/19 04:25: Sodium 137, Potassium 3.5, Chloride 100, Carbon Dioxide 27.0, Anion Gap 10, BUN 37 H, Creatinine 1.57 H, Estim Creat Clear Calc 25.62, Est GFR (MDRD) Af Amer 42 L, Est GFR (MDRD) Non-Af 34 L, BUN/Creatinine Ratio 23.6 H, Glucose 155 H, Calcium 8.7, Total Bilirubin 0.80, AST 243 H, ALT 43, Alkaline Phosphatase 78, Total Protein 7.0, Albumin 3.0 L, Globulin 4.0, Albumin/Globulin Ratio 0.8 L 04/08/19 04:25: Troponin I 96.300 H* Current Medications Acetaminophen (Tylenol) 650 mg PO Q6H PRN PRN PRN Reason: Mild Pain (1-3)/Temp > 100.7 F Aspirin (Ecotrin) 81 mg PO DAILY@0800 [facility] Atorvastatin Calcium (Lipitor) 40 mg PO QHS [facility] Atropine Sulfate () 0.5 mg IV UD PRN PRN Reason: HR <50 bpm Famotidine (Pepcid) 40 mg PO DAILY [facility] Heparin Sodium (Beef Lung) (Heparin 500 Unit/5 Ml (100/Ml)) 500 unit IV UD PRN PRN Reason: HEPARIN FLUSH Sodium Chloride () 1,000 mls @ 100 mls/hr IV .Q10H ONE Stop: 04/08/19 10:19 Last Admin: 04/08/19 01:23 Dose: 100 mls/hr Documented by: Labetalol HCl (Trandate) 5 mg IV X1 PRN PRN Reason: SBP > 160 when pulling sheath Stop: 04/10/19 00:18 Metoprolol Tartrate (Lopressor (Beta Alok)) 50 mg PO BID [facility] Morphine Sulfate () 2 mg IV Q3H PRN PRN PRN Reason: Severe pain (7-07/04) Last Admin: 04/08/19 01:22 Dose: 2 mg Documented by: Nitroglycerin (Nitrostat) 0.4 mg SUBLINGUAL Q5M PRN PRN Reason: CARDIAC/CHEST PAIN Ondansetron HCl (Zofran) 4 mg IV Q8H PRN PRN PRN Reason: NAUSEA/VOMITING Prednisone () 20 mg PO DAILYCM [facility] Sodium Chloride () 10 - 40 ml IV UD PRN PRN Reason: SALINE FLUSH Sodium Chloride () 500 ml IV BOLUS PRN PRN Reason: VASO-VAGAL PROTOCOL Ticagrelor (Brilinta) 90 mg PO BID [facility] Medical Necessity - Tobacco Use Smoking Status: Unknown if ever smoked Assessment/Plan All Active Problems (Last Updated 04/08/19 @ 07:18 by Angie Pino) Non-ST elevation (NSTEMI) myocardial infarction (Acute 04/07/19) History of coronary artery stent placement (Acute) Cardiogenic shock (Acute 04/07/19) Acute inferior myocardial infarction (Acute 04/07/19) Bradycardia by electrocardiogram (Acute) Junctional rhythm (Acute) Chest pain (Acute) 1. Acute inferior STEMI status post BMS to RCA/chronic A. fib history of Maze procedure/HTN/chronic diastolic CHF -Underwent cardiac cath which showed 100% RCA occlusion -Status post BMS to RCA -Continue with aspirin, Brilinta, statin, beta-alok -Previous history of GI bleed, and will start on Pepcid while she is on her antiplatelets -No anticoagulation for her A. fib because of her history of GI bleed -We will resume Lasix on discharge, will hold for now given her recent contrast -Echo pending 2. Acute gouty flare/sarcoidosis -No pain or redness on exam this morning, she is on prednisone for sarcoidosis, will increase her prednisone to 20 mg daily and can have this reduced on follow- up with her PCP 3. CKD 3 -Stable -Continue to monitor DVT: SCDs Code Visit Inpatient E&M: 62348 Subs Hosp L2
--- NOTE | 2019-04-08 09:22 | CRPHASE1 ---
Patient Communication PHII Cardiac Rehab Discussed with Patient:: Yes Guide to Cardiac Rehab Given to Patient:: Yes Cardiac Rehab Facility Choice List Given to Patient:: Yes - Pt prefers [facility] for CR Choice Program [facility] CR PHII:: Communication Given to CR, Refer to [facility] Garment Mender:: Chalrine Magallon PCP:: Aaron Tidwell Phase II Cardiac Rehab:: Yes Orientation Date:: 04/08/19 PHII Cardiac Rehab Referral:: [facility] Phase I Charge:: Level I - Education Risk Factors/Lifestyle Smoking Status: Never smoker Hx Hypertension: Yes Hx Diabetes Mellitus Type 2: Yes Hx Dyslipidemia: Yes Hx Obesity: Yes Height: 5 ft 2 in Weight:: 196 lb BMI: 35.8 Post-Menopausal: Yes Stress: Recent - cannot work, so financial issues. Recommend speak with social group worker. Risk Factor for Sedentary Lifestyle: Moderate Risk Family History: Family History (Last Reviewed 10/08/18 @ 08:36 by Maggy Dukes) Mother Diabetes Brother Diabetes Myocardial infarction Cancer Son Hypertension Daughter Arthritis Diabetes Hypertension Brother Cancer Family History: Cancer, Diabetes, Heart Disease, Hypertension Past Cardiac Illness: Arrhythmias Phase I Education Given On:: [place], Nutrition, Antiplatelet medication, CHF, Diabetes - Type II Issues Affecting Care:: None Knowledge of Condition:: Yes Learning Preferences: Verbal, Written, Audio/Visual, Demonstration Hospital Course Presenting Symptoms:: chest heaviness and SOB Pain Description: Burning Medical/Surgical History RI:: Yes Diabetes Type II:: Yes Hypertension:: Yes Dyslipidemia:: Yes Arrhythmias:: Yes Arthritis:: Yes GERD:: Yes Other Medical/Surgical Issues:: PAOD with venous stasis ulcers LE's. Discharge/Home/Social Eval Marital Status: Cardiac Rehabilitation Info Cardiac Rehabilitation Program Information: Cardiac Rehabilitation is important for patients like you who are recovering from a heart problem. Cardiac rehabilitation programs are recognized as integral to the continued care of the patient with coronary heart disease. The cardiac rehabilitation program is designed to optimize a patient's physical, psychological, and social functioning. Health career specialist work in cardiac rehabilitation programs and assist you with getting the treatments you need to get stronger and healthier - like exercise, healthy eating habits, and medications. Cardiac rehabilitation has been show to help people with heart problems live longer and have better life enjoyment than people who do not go to cardiac rehabilitation. Please contact the Cardiac Rehabilitation Program at [facility] at in two weeks if you have not heard from them.
--- NOTE | 2019-04-08 09:28 | CASEMGMT ---
RN CM Assessment Presentation: STEMI. Thrombectomy and BMS to RCA Intro role of CM and purpose of RN CM assessment. Demographics, PCP and Pharmacy verified. PCP: Dr. Tidwell Specialists: Dr. Magallon Preferred Pharmacy: [facility] Insurance: [employer] Prescription Benefit: yes. May dc on Brillinta. Savings card given to and explained. LNOK: Geraldo Zapata Living Arrangements: Lives in Mobile Home with her . 7 steps into home, handrails on both sides. Pt states she is independent at home, no care needs with ADL's Transportation: drives. DME: walker, rollator, wheelchair, Bipap from [facility]. RN CM let pt know if assist needed with Bipap, [facility] is contact for [facility] patients. Phone # for [facility] given to . HHC: [facility] past (2018) Patient DC goals: Home DC PLAN: Anticipate Home with family support. Je BLANC RN ACM
--- NOTE | 2019-04-08 09:34 | CRPH1.INST_ITS ---
General Education CAD and cardiac anatomy and function:: Patient communicates acknowledgment, Needs reinforcement Explanation of diagnoses and procedures:: Patient communicates acknowledgment, Needs reinforcement Sign/Symptoms of DC:: Patient communicates acknowledgment, Needs reinforcement Antiplatelet therapy: Patient communicates acknowledgment, Needs reinforcement Proper use of NTG-SL: Patient communicates acknowledgment, Needs reinforcement Emergency procedures and activation of EMS: Patient communicates acknowledgment, Needs reinforcement Compliance of all prescribed medications: Patient communicates acknowledgment, Needs reinforcement Smoking Patient Nicotine/Smoking Risk Factors Are:: Never smoked Nicotine/Smoking Response Code:: Not instructed Dyslipidemia Patient Dyslipidemia Risk Factors Are:: Total Cholesterol, Triglycerides, HDL, LDL Recommendations Include:: Lipid profile provided, Reviewed NCEP/ATP guidelines, Therapeutic Lifestyle Change dietary guidelines Dyslipidemia Response Code:: Patient communicates acknowledgment, Needs reinforcement Overweight/Obesity Patient Overweight/Obesity Risk Factors Are:: Obesity - > or = 30 Recommendations Include:: Weight loss of 5-10%, Reduced calorie diet, Exercise 5-7 times/week Overweight/Obesity:: Patient communicates acknowledgment, Needs reinforcement Hypertension Patient Hypertension Risk Factors Are:: No documented hx of HTN Recommendations Include:: Maintain BP <130/85, DASH dietary guidelines, Decrease /maintain normal body weight, Moderation of ETOH Hypertension:: Patient communicates acknowledgment, Needs reinforcement Heart Disease Patient Heart Disease Risk Factors Are:: Family history of heart disease < 65 years old Recommendations Include:: Educated family members of their risk Heart Disease Response Code:: Patient communicates acknowledgment, Needs reinforcement Diabetes Patient Diabetes Risk Factors Are:: Elevated blood sugars Recommendations Include:: Maintain fasting blood sugars 70-110 md/dL, Maintain HgbA1c of 6% or less, Monitor blood sugar as prescribed, Diabetic dietary guidelines, Decrease/maintain body weight Diabetes:: Patient communicates acknowledgment, Needs reinforcement Metabolic Syndrome Recommendations Include:: Patient is diabetic Metabolic Syndrome Response Code:: Not instructed Sedentary Patient Sedentary Risk Factors Are:: Lack of regular exercise Recommendations Include:: Aerobic exercise 5-7 times/week for 20-30 minutes continuously, Benefits of regular exercise, Discussed home walking program, Monitored Outpatient Cardiac Rehab Sedentary Response Code:: Patient communicates acknowledgment, Needs reinforcement Stress Recommendations Include:: Identification of stressors, and assessment of coping skills, Stress management techniques Stress Response Code:: Patient communicates acknowledgment, Needs reinforcement
[2019-04-08] MEDS: Famotidine 20 MG Tablet 40 MG PO (10:01)
[2019-04-08] MEDS: Aspirin E.C. 81 MG Tablet PO (10:02)
[2019-04-08] MEDS: TICAGRELOR 90 MG TABLET PO ×2 (10:02→21:06)
[2019-04-08] MEDS: Metoprolol Tartrate 50 MG Tablet PO ×2 (10:02→21:05)
[2019-04-08] MEDS: predniSONE 20 MG Tablet PO (10:03)
--- NOTE | 2019-04-08 14:19 | CHAPLAIN ---
Type of Pastoral Visit _x__ Initial Visit ___ Follow-up Visit ___ On-call Visit ___ General Patient Visit ___ Spiritual Assessment ___ Family Conference ___ Bereavement ___ Rapid Response ___ Code Blue ___ Other (describe below) Pastoral Care Referral From _x__ Patient ___ Family ___ Nurse ___ Physician ___ [facility] Office Supervisor ___ Career Coordinator ___ Other (describe below) Sacrament/Intervention _x__ Active listening ___ Anointing ___ Restorationist ___ Bereavement ___ Communion _x__ Amy exploration ___ ___ Life review _x__ Prayer ___ Reconciliation ___ Sacrament of Sick _x__ Supportive presence ___ Wedding ___ Other (describe below) Pastoral Comments patient and spouse in room together and interaction with both; both state that situation could have been much worse and they are thankful for prompt care
[2019-04-08] MEDS: Atorvastatin Calcium 40 MG Tablet PO (21:06)
[2019-04-09] VITALS (12 sets, daily range): BP systolic 100–125; BP diastolic 37–69; PULSE 48–58; RESP 17–24; TEMP 36.1–36.4; O2SAT 94–99
[2019-04-09 04:42] LABS: Hemoglobin 13.2 g/dl (12.0-15.0); Mean Corpuscular Hgb 29.5 pg (27.0-32.0); Mean Corpuscular Volume 89.3 fL (81-99); Mean Platelet Vol. 11.5 fl (6.2-12.0); Platelet Count 231 K/mm3 (150-450); RBC Distribution Width CV 14.9 % (11.6-14.6); RBC Distribution Width SD 48.4 fl (35.1-43.9); Red Blood Count 4.48 M/mm3 (4.2-5.4)
[2019-04-09 04:45] LABS: Scan Indicated on CBC? Y/N NO
[2019-04-09 04:56] LABS: Anion Gap 9 (5-15); BUN 37 mg/dL (7-18); BUN/Creat Ratio 28.5 RATIO (10-20); Calcium,Total 9.2 mg/dL (8.5-10.1); Chloride 105 mmol/L (98-107); EST Glomerular Filtration Rate 43 mL/min (>60); Est Glom Filt Rate - Afr Amer 52 mL/min (>60); Estimated Creatinine Clearance 30.94 ml/min; Glucose 137 mg/dL (74-106); Potassium 3.5 mmol/L (3.5-5.1); Sodium Level 141 mmol/L (136-145)
--- NOTE | 2019-04-09 07:12 | PN.CARD_ITS ---
Subjectve: Patient seen and evaluated. Appears to be stable doing well no chest pain no dizziness no shortness of breath Objective: Vital Signs Temp Pulse Resp BP Pulse Ox 97.5 F L 53 L 20 H 112/53 L 98 04/09/19 04:00 04/09/19 06:00 04/09/19 06:00 04/09/19 06:00 04/09/19 06:00 Oxygen Flow Rate (L/min) 2 Oxygen Delivery Method Nasal Cannula Weight: 197 lb 12.074 oz Body Mass Index (BMI) 35.9 Finger Stick Blood Glucose 124 Intake and Output for Last 24 Hours 04/07/19 04/08/19 04/09/19 23:59 23:59 23:59 Intake Total 243 / 2438 120 / 120 Balance 2438 / 2438 120 / 120 General: Awake, Alert, Oriented x 3 HEENT: PERRL, EOMI, Sclera Non Icteric Neck: Supple, Good ROM, No Lymph Node Enlargement Lungs: Clear to auscultation Cardiovascular: Irregular Rhythm, Normal S1, Normal S2, No Murmurs, No Rubs, No Gallops Vascular: No Carotid Bruits, Normal Femoral Pulses, Normal Radial Pulses, Normal Dorsalis Pedal Pulse, Normal Posterior Tibial Pulses Abdomen: Bowel Sounds Present, Soft, Non Tender, No HSM, No Organomegaly Extremities: No Cyanosis, No Clubbing, No edema Musculoskeletal: No Erythema Skin: No Rashes Lymphatic: No Lymph Node Enlargement Neurological: No Focal Motor or Sensory Deficit Psych/Mental Status: Appropriate 04/09/19 04:20: WBC 13.0 H, RBC 4.48, Hgb 13.2, Hct 40.0, MCV 89.3, MCH 29.5, MCHC 33.0, RDW 14.9 H, RDW Differential 48.4 H, Plt Count 231, MPV 11.5 04/09/19 04:20: Sodium 141, Potassium 3.5, Chloride 105, Carbon Dioxide 27.0, Anion Gap 9, BUN 37 H, Creatinine 1.30 H, Est GFR (MDRD) Af Amer 52 L, Est GFR (MDRD) Non-Af 43 L, BUN/Creatinine Ratio 28.5 H, Glucose 137 H, Calcium 9.2 Rhythm: EKG: Atrial fibrillation with a controlled ventricular response rate Medical Necessity - Tobacco Use Smoking Status: Never smoker Assessment/Plan 1. Status post acute inferior myocardial infarction * Patient presented with an acute inferior myocardial infarction requiring angioplasty and stenting of the mid to distal right coronary artery successfully. Patient appears to be doing well resting comfortably with no chest pain. * Echocardiogram demonstrated 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 with mild segmental wall motion abnormalities. EKG demonstrates atrial fibrillation with a controlled ventricular response rate. * Plan will be to continue current medical therapy 2. Atrial fibrillation * She has chronic persistent atrial fibrillation. Not on anticoagulation due to previous significant GI bleed. * We will continue to observe rate control. * 3. Hypertension * Blood pressure appears to be under good control at this particular time. I would not recommend that we make any significant changes. * * * At this juncture the patient can be discharged for outpatient follow-up in cardiac rehabilitation. * Thank you for allowing me to participate in the care of your patient. Please don't hesitate to call if any issues arise
--- NOTE | 2019-04-09 07:46 | PCM.DC ---
- Discharge Diagnoses Current Active Problems: Current Active and Chronic Problems (Last Updated 04/08/19 @ 07:18 by Angie Pino) Non-ST elevation (NSTEMI) myocardial infarction (Acute 04/07/19) Essential (primary) hypertension (Chronic) Secondary pulmonary arterial hypertension (Chronic) Atherosclerosis of coronary artery of [place] heart without angina pectoris (Chronic) Chronic atrial fibrillation (Chronic) History of coronary artery stent placement (Acute) PCI-thrombectomy and BMS- Distal RCA w/ 3.0 x 16 mm Rebel Stent 04/07/19 Cardiogenic shock (Acute 04/07/19) Acute inferior myocardial infarction (Acute 04/07/19) Bradycardia by electrocardiogram (Acute) Junctional rhythm (Acute) Chest pain (Acute) You will use the following diet at home:: Cardiac Your food should be the consistency of: Regular Your liquids should be the consistency of: Regular/Thin Discharge Activity: Return to Normal Activity Call your doctor if your incision/area has: Increased Pain/ Swelling, Increased Redness Call your doctor if you observe: Fever of 101 or Higher, Shortness of breath, Dizziness, Fainting spells, Swelling in the ankles, Chest pain, Increased palpitations (irregular heartbeat) Allergies/Adverse Reactions: Allergies amlodipine besylate [From Norvasc] Allergy (Verified 04/03/19 12:50) Unknown ceftriaxone Allergy (Verified 04/03/19 12:50) Rash doxazosin [From Cardura] Allergy (Verified 04/03/19 12:50) Unknown doxazosin mesylate [From Cardura] Allergy (Verified 04/03/19 12:50) Other VEINS TURNED RED doxycycline Allergy (Verified 04/03/19 12:50) Unknown Pt doesn't remember enalapril maleate [From Vasotec] Allergy (Verified 04/03/19 12:50) Rash enalaprilat dihydrate [From Vasotec] Allergy (Verified 04/03/19 12:50) Rash hydroxyzine HCl [From Vistaril] Allergy (Verified 04/03/19 12:50) Rash hydroxyzine pamoate [From Vistaril] Allergy (Verified 04/03/19 12:50) Rash meperidine HCl [From Demerol] Allergy (Verified 04/03/19 12:50) Rash Sulfa (Sulfonamide Antibiotics) Allergy (Verified 04/03/19 12:50) Hives sulfamethoxazole [From Bactrim] Allergy (Verified 04/03/19 12:50) Hives trimethoprim [From Bactrim] Allergy (Verified 04/03/19 12:50) Hives Medications to take at Discharge prednisone 10 mg tablet 5 mg PO DAILY tab 10/08/18 metoprolol tartrate 50 mg tablet 50 mg PO BID #180 tab 04/03/19 Furosemide 40 mg PO DAILY 04/08/19 Aspirin E.C. [Ecotrin] 81 mg PO DAILY@0800 #30 tab 04/09/19 Atorvastatin Calcium [Lipitor] 40 mg PO QHS #30 tab 04/09/19 Ticagrelor [Brilinta] 90 mg PO BID #60 tab 04/09/19 The following prescriptions were given: Ticagrelor [Brilinta] 90 mg PO BID #60 tab Transmission Status: Pending to [facility] Aspirin E.C. [Ecotrin] 81 mg PO DAILY@0800 #30 tab Transmission Status: Pending to [facility] Atorvastatin Calcium [Lipitor] 40 mg PO QHS #30 tab Transmission Status: Pending to [facility] Primary Care Physician: Aaron Tidwell MD [Primary Care Provider] - Please follow up with your Primary Care Physician in: 3-5 days Test Results: Test results from this visit will be discussed in further detail at your follow-up appointment, if applicable. Please Follow Up With: Epifanio Childers MD When: 2-4 weeks
[2019-04-09] MEDS: Metoprolol Tartrate 50 MG Tablet PO (08:32)
[2019-04-09] MEDS: Famotidine 20 MG Tablet 40 MG PO (08:32)
[2019-04-09] MEDS: TICAGRELOR 90 MG TABLET PO (08:33)
[2019-04-09] MEDS: Aspirin E.C. 81 MG Tablet PO (08:33)
[2019-04-09] MEDS: predniSONE 10 MG Tablet PO (08:34)
--- NOTE | 2019-04-09 10:00 | EKG12_ITS ---
Test Reason : AM Blood Pressure : / mmHG Vent. Rate : 050 BPM Atrial Rate : 036 BPM P-R Int : 000 ms QRS Dur : 094 ms QT Int : 508 ms P-R-T Axes : 000 051 -54 degrees QTc Int : [address] & T wave abnormality, consider inferior ischemia or digitalis effect ST & T wave abnormality, consider anterolateral ischemia or digitalis effect Abnormal ECG Confirmed by AMANDA BACON, PRATEEK ([id number]), medical transcription editor KOJO CAMARA ([id number]) on 04/12/2019 1:56:51 PM Referred By: Charline Magallon Confirmed By:GABY MAGALLON MD
--- NOTE | 2019-04-09 17:04 | DS.PCM_ITS ---
Discharge Date and Diagnosis - Problem List Patient Problems: Active and Suspected Problems (Last Updated 04/08/19 @ 07:18 by Angie Pino) Non-ST elevation (NSTEMI) myocardial infarction (Acute 04/07/19) Date of Admission: 04/07/19 Date of Discharge: 04/09/19 - Primary Discharge Diagnosis Active and Suspected Problems (Last Updated 04/08/19 @ 07:18 by Angie Pino) Non-ST elevation (NSTEMI) myocardial infarction (Acute 04/07/19) - Secondary Discharge Diagnosis Chronic Problems (Last Updated 04/08/19 @ 07:18 by Angie Pino) Essential (primary) hypertension (Chronic) Secondary pulmonary arterial hypertension (Chronic) Atherosclerosis of coronary artery of [place] heart without angina pectoris (Chronic) Chronic atrial fibrillation (Chronic) Chronic kidney disease, stage 3 (Chronic) Acute on chronic diastolic (congestive) heart failure (Chronic) Anemia (Chronic) PAOD (peripheral arterial occlusive disease) (Chronic) 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 The estimated ejection fraction is 60 %. Infero-Basal: Akinetic. Posterior-Basal: Severely hypokinetic. Moderate (2+) tricuspid valve insufficiency. Pulmonary artery systolic pressure is 70 mmHg. Moderate pulmonary hypertension. D shaped septum in diastole. Contrast injection was performed., Cardiac catheterization - CLINICAL PROFILE AND CO-MORBIDITIES Indications: ACS <= 24 hrs Heart Failure: None Stress/Imaging Stress/Image Study Performed: No CAD Presentations: STEMI. 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 Patient was watching a TV program in the evening when she realized that she was short of breath and her chest discomfort. She tested her oxygen saturation and it was low and she also noticed that her heart rate reading was 46. called the EMS and when the EMS got there her heart rate was 34. She says she is been battling an acute flare of gout in both feet ongoing for by a week. She denies any fever or chills or nausea or vomiting. EKG done in the field showed confirmed inferior MD. STEMI alert was called, patient underwent cardiac cath showed 100% occlusion of the distal RCA with successful thrombectomy and BMS to RCA. Patient subsequently was transferred to the ICU. At the time of being seen in ICU she denied any chest pain or dizziness or shortness of breath. She still had a pain in both feet that was about 2-4 out of 10. Her vitals were temp 98.7F, HR 34, BP 98/77, RR 17, spo2 was 93% on room air Blood work showed WBC 16.5, Hb 14.4, Plt 241, sodium is 136, potassium 3.2, chloride 100, bicarbonate 25, BUN 35, creatinine 1.59 Hospital Course: 1. Acute inferior STEMI status post BMS to RCA/chronic A. fib history of Maze procedure/HTN/chronic diastolic [id number] female who presented to the hospital with chest discomfort as well as shortness of breath. It was happening at rest while the patient was watching television. She came to the ER and was found to be having an acute MD and she underwent a cardiac cath which showed 100% occlusion of the distal RCA. She had a bare-metal stent placed and was started on Brilinta, aspirin, statin, beta-alok. She will need the Brilinta for at least a month. Of note, in the ER she was stated to have cardiogenic shock however there was no end-organ damage and her blood pressure was greater than 90 systolic. Her creatinine was elevated however this is her baseline. She had a bare-metal stent placed and tolerated the procedure very well, the next day she was feeling much better and on the day of discharge her blood pressure stable as well as her heart rate. She will need to follow-up with cardiology in a couple weeks. This plan was discussed with the patient who was in agreement. Patient Problems: Active and Suspected Problems (Last Updated 04/08/19 @ 07:18 by Angie Pino) Non-ST elevation (NSTEMI) myocardial infarction (Acute 04/07/19) Objective: General: Alert, Oriented x3, Cooperative, No apparent distress HEENT: Atraumatic, PERRLA, EOMI, Normocephalic Oral: Moist Mucosa Neck: Supple, No JVD Lungs: Clear to auscultation, Normal air movement, No rhonchi, No wheeze, No rales, Diminished Cardiovascular: Regular rate, Regular Rhythm, Normal S1, Normal S2, No murmurs Abdomen: Soft, Non Tender, Non-Distended, No Hepato-splenomegaly Extremities: No edema, Capillary Refill Less than 3 Seconds Skin: No rashes, No breakdown Neurological: Neuro grossly intact, Sensory exam intact to light touch and pain Psych/Mental Status: Normal Affect, Appropriate - Physical Exam Vital Signs Temp Pulse Resp BP Pulse Ox 97.5 F L 51 L 24 H 118/37 L 94 04/09/19 04:00 04/09/19 08:32 04/09/19 08:00 04/09/19 08:00 04/09/19 08:00 Oxygen Flow Rate (L/min) 2 Oxygen Delivery Method Room Air Weight: 197 lb 12.074 oz Body Mass Index (BMI) 35.9 Finger Stick Blood Glucose 124 Intake and Output for Last 24 Hours 04/07/19 04/08/19 04/09/19 23:59 23:59 23:59 Intake Total 2439 / 2439 120 / 120 Balance 2439 / 2439 120 / 120 Laboratory Tests Past 24 Hrs 04/09/19 04/09/19 04:20 04:20 WBC 13.0 H RBC 4.48 Hgb 13.2 Hct 40.0 MCV 89.3 MCH 29.5 MCHC 33.0 RDW 14.9 H RDW Differential 48.4 H Plt Count 231 MPV 11.5 Sodium 141 Potassium 3.5 Chloride 105 Carbon Dioxide 27.0 Anion Gap 9 BUN 37 H Creatinine 1.30 H Estim Creat Clear Calc 30.94 Est GFR (MDRD) Af Amer 52 L Est GFR (MDRD) Non-Af 43 L BUN/Creatinine Ratio 28.5 H Glucose 137 H Calcium 9.2 Discharge Activity: Return to Normal Activity Call your doctor if your incision/area has: Increased Pain/ Swelling, Increased Redness Call your doctor if you observe: Fever of 101 or Higher, Shortness of breath, Dizziness, Fainting spells, Swelling in the ankles, Chest pain, Increased palpitations (irregular heartbeat) Home Medications: Medications to take at Discharge prednisone 10 mg tablet 5 mg PO DAILY tab 10/08/18 metoprolol tartrate 50 mg tablet 50 mg PO BID #180 tab 04/03/19 Furosemide 40 mg PO DAILY 04/08/19 Aspirin E.C. [Ecotrin] 81 mg PO DAILY@0800 #30 tab 04/09/19 Atorvastatin Calcium [Lipitor] 40 mg PO QHS #30 tab 04/09/19 Ticagrelor [Brilinta] 90 mg PO BID #60 tab 04/09/19 Following Prescrptions Were Given to Patient: Ticagrelor [Brilinta] 90 mg PO BID #60 tab Transmission Status: Received by [facility] Aspirin E.C. [Ecotrin] 81 mg PO DAILY@0800 #30 tab Transmission Status: Received by [facility] Atorvastatin Calcium [Lipitor] 40 mg PO QHS #30 tab Transmission Status: Received by [facility] Primary Care Physician: Aaron Tidwell MD [Primary Care Provider] - Please follow up with your Primary Care Physician in: 3-5 days Please Follow Up With: Epifanio Childers MD When: 2-4 weeks Disposition: Home Minutes spent on discharge:: 35 Patient Condition:: Good Medical Necessity - Tobacco Use Smoking Status: Never smoker Meaningful Use Info Meaningful Use Diagnoses (Choose all that apply): None applicable Code Visit Inpatient E&M: 22543 Disch Hosp
--- NOTE | 2019-04-10 16:09 | CASEMGMT ---
ANNET[facility] DC PHONE CALL DC DATE: 04/09/19 DC Disposition: Home Diagnosis on Discharge: NSTEMI LACE/STRATA: 06/27 Attempted call to home phone. no answer. Je BLANC RN ACM
== END 2019-04-09 10:00 | disposition home or self-care (01) | DRG 248 ==
LOC: ED 22:58 → ICU 23:50
PROVIDERS: Admitting Provider Internal Medicine; Emergency Provider Emergency Medicine; Family Provider Internal Medicine; PCP Internal Medicine; Referring Provider Specialist; Visit Provider Family Medicine
DX: I21.19 ST elevation (STEMI) myocardial infarction involving other coronary artery of inferior wall (principal); R57.0 Cardiogenic shock; I13.0 Hypertensive heart and chronic kidney disease with heart failure and stage 1 through stage 4 chronic kidney disease, or unspecified chronic kidney disease; I50.32 Chronic diastolic (congestive) heart failure; R00.1 Bradycardia, unspecified; M10.9 Gout, unspecified; D86.9 Sarcoidosis, unspecified; N18.3 Chronic kidney disease, stage 3 (moderate); Z79.52 Long term (current) use of systemic steroids; I48.2 Chronic atrial fibrillation; Z87.19 Personal history of other diseases of the digestive system; I27.21 Secondary pulmonary arterial hypertension; I73.9 Peripheral vascular disease, unspecified
CPT/HCPCS: 80048; 80053; 82962; 84484; 85027; 92941; 93005; 93306; 93454; 97162; 97166; 97802; 99283; J7030; J7040; Q9957; A4216; C1725; C1757; C1769; C1876; C1887; C1894; C8929; J1327; J2405; Q9967

== ENCOUNTER → 2019-04-13 06:58 | Outpatient (CLI) | payer MEDICARE, SELFPAY ==
[2019-04-08 00:30] VITALS: BMI 35.9
[2019-04-08 09:33] VITALS: BMI 35.8
[2019-04-13 09:04] LABS: Anion Gap 8 (5-15); BUN 31 mg/dL (7-18); BUN/Creat Ratio 25.4 RATIO (10-20); Calcium,Total 9.3 mg/dL (8.5-10.1); Chloride 102 mmol/L (98-107); Creatinine, Serum 1.22 mg/dL (0.55-1.02); EST Glomerular Filtration Rate 46 mL/min (>60); Est Glom Filt Rate - Afr Amer 56 mL/min (>60); Glucose 124 mg/dL (74-106); Potassium 2.7 mmol/L (3.5-5.1); Sodium Level 138 mmol/L (136-145)
== END ==
PROVIDERS: Family Provider Internal Medicine; PCP Internal Medicine; Referring Provider Physician Assistant Medical; Visit Provider Physician Assistant Medical
DX: I10 Essential (primary) hypertension (principal); I48.2 Chronic atrial fibrillation; I50.32 Chronic diastolic (congestive) heart failure; I27.20 Pulmonary hypertension, unspecified
CPT/HCPCS: 36415; 80048

== ENCOUNTER → 2019-04-16 14:51 | Outpatient (CLI) | payer MEDICARE, SELFPAY ==
[2019-04-08 09:33] VITALS: BMI 35.8
[2019-04-16 10:03] VITALS: BMI 34.4
[2019-04-16 15:45] LABS: Hemoglobin 16.3 g/dL (12.0-15.0)
[2019-04-16 16:29] LABS: Anion Gap 12 (5-15); BUN 33 mg/dL (7-18); BUN/Creat Ratio 27.3 RATIO (10-20); Calcium,Total 9.8 mg/dL (8.5-10.1); Chloride 102 mmol/L (98-107); Creatinine, Serum 1.21 mg/dL (0.55-1.02); EST Glomerular Filtration Rate 46 mL/min (>60); Est Glom Filt Rate - Afr Amer 56 mL/min (>60); Glucose 145 mg/dL (74-106); Potassium 3.6 mmol/L (3.5-5.1); Sodium Level 140 mmol/L (136-145)
== END ==
PROVIDERS: Family Provider Internal Medicine; PCP Internal Medicine; Referring Provider Physician Assistant Medical; Visit Provider Physician Assistant Medical
DX: D64.9 Anemia, unspecified (principal); E87.6 Hypokalemia
CPT/HCPCS: 36415; 80048; 85014; 85018

== ENCOUNTER 2019-05-02 14:20 | Inpatient (IN) | payer MEDICARE, SELFPAY ==
[2019-04-08 09:33] VITALS: BMI 35.8
[2019-04-16 10:03] VITALS: BMI 34.4
[2019-05-02] VITALS (11 sets, daily range): BP systolic 122–145; BP diastolic 77–98; PULSE 64–106; RESP 15–22; TEMP 36.1–37.3; O2SAT 92–97; BMI 35.1; BMI 35.4
--- NOTE | 2019-05-02 15:04 | EKG12_ITS ---
Test Reason : SOB Blood Pressure : / mmHG Vent. Rate : 096 BPM Atrial Rate : 500 BPM P-R Int : 000 ms QRS Dur : 088 ms QT Int : 358 ms P-R-T Axes : 000 052 -67 degrees QTc Int : 452 ms Atrial fibrillation with premature ventricular or aberrantly conducted complexes ST & T wave abnormality, consider inferolateral ischemia Abnormal ECG Confirmed by ALYSA FARR ([id number]), design editor CONRADO JOHNSON ([id number]) on 05/06/2019 1:19:34 PM Referred By: KADE Confirmed By:ALYSA FARR
--- NOTE | 2019-05-02 15:05 | RAD_ITS ---
STUDY: X-RAY CHEST REASON FOR EXAM: Female, 73 years old. Shortness of breath. TECHNIQUE: Single AP portable view of the chest. COMPARISON: Comparison is made with prior examination of April 01, 2019. FINDINGS: EKG electrodes are seen. Vascular congestion. Mild CHF. There is no demonstrated pleural abnormality. There is moderate cardiac enlargement. A loop recorder device is seen overlying the left upper quadrant. Normal mediastinum and kenn. Normal visualized pulmonary arteries. There is atherosclerotic calcification of the aortic arch with tortuosity. There are degenerative changes of the visualized thoracic spine. There is degenerative osteoarthritis of the bilateral shoulders. There is no demonstrated abnormality of the visualized soft tissue structures of the upper abdomen. RAD/Chest 1 View (Portable) IMPRESSION: Cardiomegaly. Vascular congestion. Electronically Signed: Carlos Cai, at 15:28 EDT , Service support ,
[2019-05-02 15:17] LABS: Absolute Lymphocyte Count 0.92 X10^3/uL (0.83-4.51); Absolute Neutrophil Count 9.2 X10^3/uL (2.0-7.7); Basophil# 0.02 X10^3/uL; Basophil% 0.2 % (0-1); Eosinophil# 0.06 X10^3/uL; Eosinophils% 0.5 % (0-5); Hematocrit 45.1 % (37-47); Hemoglobin 14.9 g/dL (12.0-15.0); Lymphocyte # 0.92 X10^3/ul (4.0); Lymphocyte % 8.3 % (19-41); Mean Corpuscular Volume 90.9 fL (81-99); Mean Platelet Vol. 11.1 fl (6.2-12.0); Monocyte# 0.76 X10^3/uL; Monocyte% 6.9 % (0-10); NRBC Flagged by Analyzer 0 % (0-5); Neutrophil # 9.24 X10^3/uL (2.7-7.7); Neutrophil % 83.6 % (47-70); Platelet Count 184 K/mm3 (150-450); RBC Distribution Width CV 14.9 % (11.6-14.6); Red Blood Count 4.96 M/mm3 (4.2-5.4); White Blood Count 11.1 K/mm3 (4.4-11.0)
[2019-05-02 15:29] LABS: Anion Gap 11 (5-15); BUN 28 mg/dL (7-18); BUN/Creat Ratio 20.4 RATIO (10-20); Calcium,Total 9.6 mg/dL (8.5-10.1); Chloride 106 mmol/L (98-107); Creatinine, Serum 1.37 mg/dL (0.55-1.02); EST Glomerular Filtration Rate 40 mL/min (>60); Est Glom Filt Rate - Afr Amer 49 mL/min (>60); Estimated Creatinine Clearance 29.36 ml/min; Glucose 168 mg/dL (74-106); Potassium 3.8 mmol/L (3.5-5.1); Sodium Level 142 mmol/L (136-145)
[2019-05-02 15:45] LABS: BNP,B-Type NATRIURETIC PEPTIDE 468.4 pg/mL (0-100)
[2019-05-02] MEDS: dilTIAZem 25 MG/5 ML Vial 20 MG IV BOLUS (15:58)
[2019-05-02] MEDS: 0.9% Normal Saline 1,000 ML 15 ML IV (16:00)
--- NOTE | 2019-05-02 16:04 | ED.DCSUM_ITS ---
- ER Visit Summary Date of Service: 05/02/19 Chief Complaint: [Shortness of breath] History of Present Illness: The patient is a 73 F [presents to the emergency department shortness of breath that is progressive over 1 month. Patient states that she had a heart attack April 07 and ever since that time she has been feeling increasingly short of breath. Patient thinks that it might be the Brilinta that they put her on after they gave her a stent. Patient states also at home has been tachycardic with heart rates over 100 frequently. Patient does have a history of A. fib that is been paroxysmal. Patient is not anticoagulated for that. Patient denies any fever. She has had a slight cough that is been nonproductive. She complains of exertional dyspnea and orthopnea. Patient states that she sleeps in a recliner. She denies any weight gain or excessive swelling in her legs. Patient has had history of coronary artery disease, CHF, hypertension, kidney disease, and pulmonary hypertension.] Physical Examination: [HEENT-PERRLA, EOMI. Cranial nerves II through XII grossly intact. TMs clear. Mucous membranes moist. No adenopathy. No JVD noted. Cardiovascular-heart is irregularly irregular and tachycardic with heart rates up to 130 in the ER. No murmurs auscultated. Lungs-aeration bilaterally. Patient has faint rales in both bases. No accessory muscle use or retractions. No conversational dyspnea. Abdomen-normoactive bowel sounds, soft, nontender, no rebound or rigidity, no peritoneal signs. Extremities-intact ?4, normal range of motion, normal pulses, atraumatic. Patient has trace pretibial edema.] Test Results: [EKG obtained arrival showed A. fib with a ventricular response of 96 bpm. Patient had nonspecific ST changes and occasional PVCs noted. CBC with differential showed a white count of 11.1, hemoglobin 15, hematocrit 45, place 24. Chemistries unremarkable. BUN was 28 and creatinine 1.37. It is less than 0.015. BNP was elevated 468. Chest x-ray showed cardiomegaly and pulmonary congestion.] Emergency Department Course and Treatment: [Patient case discussed with hospitalist will evaluate patient for admission. Patient was given Cardizem 20 mg IV bolus. Patient will be ordered diuretic.] Treatment Plan: [Admit] Disposition: [Admit] Impression: [A. fib RVR Dyspnea CHF exacerbation] This note was generated with [employer] dictation software. It may contain incorrect words, spelling, and punctuation that were not noted in review of the chart prior to signing ED Disposition - Plan for ED Patient: Referrals: Aaron Tidwell MD [Primary Care Provider] -
--- NOTE | 2019-05-02 16:14 | HP.PCM_ITS ---
<Pola Leung - Last Filed: 05/02/19 16:39> Problem List (1) Atrial fibrillation with RVR Status: Acute (2) Diastolic CHF Status: Acute Qualifiers: Heart failure chronicity: acute on chronic Qualified Code(s): I50.33 - Acute on chronic diastolic (congestive) heart failure (3) CAD (coronary artery disease) Status: Chronic (4) Essential (primary) hypertension Status: Chronic (5) Secondary pulmonary arterial hypertension Status: Chronic (6) Chronic atrial fibrillation Status: Chronic (7) Chronic kidney disease, stage 3 Status: Chronic (8) Anemia Status: Chronic (9) PAOD (peripheral arterial occlusive disease) Status: Chronic History of Present Illness Date of Admission: 05/02/19 Chief Complaint: sob The patient is a 73 year old F with past medical history of chronic atrial fibrillation, CAD with recent NM and stent placement, diastolic congestive heart failure, CKD stage III, pulmonary hypertension, type 2 diabetes, PAD, hypertension, hyperlipidemia, who presents to the emergency room with complaints of shortness of breath. The patient states that she has been more short of breath ever since her stent placement on April 07 of this year. Since this was done she has become progressively more short of breath. She is short of breath at rest, worse with exertion. Also worse lying flat. She is unable to lie flat at all. She is in a recliner all day long. Patient is also noticed that she is having episodes of tachycardia at home that she can feel. Lately her shortness of breath is so bad that she is unable to sleep at all at night. She does however deny increased lower extremity edema or weight gain. In the emergency room she is having episodic Afib with RVR on the monitor. She is in the 70s after receiving cardizem. She was seen in the cardiology office recently, at that time her SOB was attributed to the Brillinta she was started on after the cath, no changes were made at that time. She has intermittent chest pain described as a dull ache. She has a dry cough. She denies recent illness or infection, no fevers or chills, no sinus congestion, rhinorrhea, nausea, vomiting, or diarrhea. 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) Medical History: Medical History (Last Reviewed 04/16/19 @ 14:14 by SHY Galindo) Non-ST elevation (NSTEMI) myocardial infarction (Acute) Onset Date: 04/07/19 I21.4 Essential (primary) hypertension (Chronic) I10 Secondary pulmonary arterial hypertension (Chronic) I27.21 Atherosclerosis of coronary artery of [place] heart without angina pectoris (Chronic) I25.10 Chronic atrial fibrillation (Chronic) I48.2 Cardiogenic shock (Acute) Onset Date: 04/07/19 R57.0 Acute inferior myocardial infarction (Acute) Onset Date: 04/07/19 I21.19 Bradycardia by electrocardiogram (Acute) R00.1 Junctional rhythm (Acute) I49.8 Chest pain (Acute) R07.9 Chronic kidney disease, stage 3 (Chronic) N18.3 Acute on chronic diastolic (congestive) heart failure (Chronic) I50.33 Anemia (Chronic) D64.9 PAOD (peripheral arterial occlusive disease) (Chronic) I77.9 Arthralgia M25.50 Calcinosis 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 calciphylaxis vs. erythema nodosum vs. dermatomyositis vs. panniculitis Mass of soft tissue of right lower extremity R22.41 right inner upper thigh - ? calciphylaxis vs. erythema nodosum vs. dermatomyositis vs. panniculitis Myalgia M79.1 Neuropathic pain M79.2 LYN (obstructive sleep apnea) G47.33 Recurrent falls R29.6 Sarcoidosis D86.9 Spinal stenosis of lumbar region with radiculopathy M48.061, M54.16 Type 2 diabetes mellitus E11.9 Ulcer of left lower extremity with fat layer exposed L97.922 Venous insufficiency (chronic) (peripheral) I87.2 Venous stasis ulcer of left lower leg with edema of left lower leg I83.892, I83.028, R60.9 Venous stasis ulcer of right lower leg with edema of right lower leg I83.891, I83.018, R60.9 GI bleeding K92.2 Hypersomnia G47.10 Ulcer of right lower extremity with fat layer exposed L97.[address] of chest (Inactive) R93.8 Cellulitis (Inactive) L03.90 Coumadin-induced coagulopathy (Inactive) Dyspnea on exertion (Inactive) R06.09 Edema, lower extremity (Inactive) R60.0 Generalized weakness (Inactive) Hypokalemia (Inactive) E87.6 Localized edema (Inactive) R60.0 Pain in left leg (Inactive) M79.605 Pain in right leg (Inactive) M79.604 Shortness of breath (Inactive) R06.02 Symptomatic anemia (Inactive) D64.9 Weakness (Inactive) R53.1 Allergies amlodipine besylate [From Norvasc] Allergy (Verified 04/16/19 13:43) Unknown ceftriaxone Allergy (Verified 04/16/19 13:43) Rash doxazosin [From Cardura] Allergy (Verified 04/16/19 13:43) Unknown doxazosin mesylate [From Cardura] Allergy (Verified 04/16/19 13:43) Other VEINS TURNED RED doxycycline Allergy (Verified 04/16/19 13:43) Unknown Pt doesn't remember enalapril maleate [From Vasotec] Allergy (Verified 04/16/19 13:43) Rash enalaprilat dihydrate [From Vasotec] Allergy (Verified 04/16/19 13:43) Rash hydroxyzine HCl [From Vistaril] Allergy (Verified 04/16/19 13:43) Rash hydroxyzine pamoate [From Vistaril] Allergy (Verified 04/16/19 13:43) Rash meperidine HCl [From Demerol] Allergy (Verified 04/16/19 13:43) Rash Sulfa (Sulfonamide Antibiotics) Allergy (Verified 04/16/19 13:43) Hives sulfamethoxazole [From Bactrim] Allergy (Verified 04/16/19 13:43) Hives trimethoprim [From Bactrim] Allergy (Verified 04/16/19 13:43) Hives Home Medications: Ambulatory Orders Medication Instructions Recorded prednisone 10 mg tablet 5 mg PO DAILY tab 10/08/18 metoprolol tartrate 50 mg tablet 50 mg PO BID #180 tab 04/03/19 Aspirin E.C. [Ecotrin] 81 mg PO DAILY@0800 #30 tab 04/09/19 Atorvastatin Calcium [Lipitor] 40 mg PO QHS #30 tab 04/09/19 Ticagrelor [Brilinta] 90 mg PO BID #60 tab 04/09/19 furosemide 40 mg tablet 20 mg PO DAILY tab 04/16/19 potassium chloride ER 20 mEq 20 meq PO DAILY tab 04/16/19 tablet,extended release Surgical History: Surgical History (Last Reviewed 04/16/19 @ 14:14 by SHY Galindo) History of coronary artery stent placement (Acute) Z95.5 PCI-thrombectomy and BMS- Distal RCA w/ 3.0 x 16 mm Rebel Stent 04/07/19 H/O skin graft Z98.890 08/01/18 @ [facility] History of cardiac radiofrequency ablation (RFA) Onset Date: 01/09/17 Z98.890 Lt Atrial Ablation 01/12/17 History of hysterectomy Z90.710 History of loop recorder Z98.890 Implant: 01/03/[address] Roach History of loop recorder Onset Date: 01/09/17 Z98.890 History of lymph node excision Z98.890 x 2 History of maze procedure Z98.890 History of patent ductus arteriosus Z87.74 closure History of removal of skin mole Z98.890, Z87.2 S/P PICC central line placement Z95.828 S/P laparoscopic cholecystectomy Z90.49 Status post laparoscopic [place] fundoplication Z98.890 h/o left foot surgery Surgical History: cataract, cholecystectomy, hysterectomy, - - s/p MAZE procedure, loop recorder. 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 Smoking Status: Never smoker - *Family History Maternal Family History: Family History (Last Reviewed 04/16/19 @ 14:14 by SHY Galindo) Mother Diabetes Brother Diabetes Myocardial infarction Cancer Son Hypertension Daughter Arthritis Diabetes Hypertension Brother Cancer History Items: No pertinent history Paternal Family History: Family History (Last Reviewed 04/16/19 @ 14:14 by SHY Galindo) Mother Diabetes Brother Diabetes Myocardial infarction Cancer Son Hypertension Daughter Arthritis Diabetes Hypertension Brother Cancer History Items: No pertinent history Review of Systems Constitutional: Reports: Fatigue. Denies: Chills, Fever, Weight Change HEENT: Denies: Head Aches, Sinus Congestion, Sinus Drainage Cardiovascular: Reports: Chest Pain - dull ache, Orthopnea, Palpitations, Paroxysmal Noc. Dyspnea. Denies: Edema, Heaviness, Light Headedness Respiratory: Reports: Cough, Shortness of Breath, Shortness of breath at rest, Shortness of breath upon exertion. Denies: Pleuritic Pain, Sputum production, Wheezing Gastrointestinal: Denies: Abdominal Pain, Nausea, Vomiting Genitourinary: Denies: Dysuria Musculoskeletal: Denies: Joint Pain, Joint Tenderness Skin: Denies: Rash, Wounds Neurological: Denies: Numbness, Tingling, Focal weakness Psychiatric: Denies: Anxiety, Depression, Homicidal Ideations, Suicidal Ideations Hematologic/ Lymphatic: Denies: Easy Bruising, Easy Bleeding VTE Information - Inpt Only VTE Present on Admission: No VTE Mechan Device Prophylaxis: None VTE Pharm Prophylaxis ordered?: Yes Patient Problems: Active and Suspected Problems (Last Reviewed 04/16/19 @ 14:14 by SHY Galindo) Atrial fibrillation with RVR (Acute) Diastolic CHF (Acute) - Physical Exam General: Alert, Oriented x3, Cooperative HEENT: Atraumatic, PERRLA, EOMI, Normocephalic Neck: Supple, No JVD, Negative Carotid Bruits Lungs: No rales, Diminished Cardiovascular: Irregular Rate, Tachycardic Abdomen: Bowel Sounds Present, Soft, Non Tender Extremities: No edema, Capillary Refill Less than 3 Seconds Skin: No rashes, No breakdown Musculoskeletal: No Tenderness to Palpation of Joints or Extremities Neurological: Cranial nerves II-XII grossly intact Psych/Mental Status: Normal Affect, Appropriate, Alert and oriented to time, place, person, mood and affect Vital Signs Temp Pulse Resp BP Pulse Ox 97 F L 75 17 145/77 H 97 05/02/19 14:20 05/02/19 16:11 05/02/19 16:11 05/02/19 14:20 05/02/19 16:11 Oxygen Delivery Method Room Air Weight: 192 lb Body Mass Index (BMI) 35.1 Finger Stick Blood Glucose 124 Laboratory Tests Past 24 Hrs 05/02/19 05/02/19 05/02/19 14:45 14:45 14:45 WBC 11.1 H RBC 4.96 Hgb 14.9 Hct 45.1 MCV 90.9 MCH 30.0 MCHC 33.0 RDW Std Deviation 49.0 H RDW Coeff of Heike 14.9 H Plt Count 184 MPV 11.1 Immature Gran % (Auto) 0.500 Neut % (Auto) 83.6 H Lymph % (Auto) 8.3 L [place] % (Auto) 6.9 Eos % (Auto) 0.5 Baso % (Auto) 0.2 Absolute Neuts (auto) 9.2 H Absolute Lymphs (auto) 0.92 Nucleated RBC % 0 Sodium 142 Potassium 3.8 Chloride 106 Carbon Dioxide 25.0 Anion Gap 11 BUN 28 H Creatinine 1.37 H Estim Creat Clear Calc 29.36 Est GFR (MDRD) Af Amer 49 L Est GFR (MDRD) Non-Af 40 L BUN/Creatinine Ratio 20.4 H Glucose 168 H Calcium 9.6 Troponin I < 0.015 B-Natriuretic Peptide 468.4 H Assessment/Plan All Active Problems (Last Reviewed 04/16/19 @ 14:14 by SHY Galindo) Atrial fibrillation with RVR (Acute) Diastolic CHF (Acute) Non-ST elevation (NSTEMI) myocardial infarction (Acute 04/07/19) History of coronary artery stent placement (Acute) Cardiogenic shock (Acute 04/07/19) Acute inferior myocardial infarction (Acute 04/07/19) Bradycardia by electrocardiogram (Acute) Junctional rhythm (Acute) Chest pain (Acute) 1. Acute on chronic diastolic CHF exacerbation suspect 2/2 episodic Afib RVR - improved with cardizem in ER. Admit to PCU on tele. Defer additional agent at this time. Provide IV lasix, monitor I/O. + BNP elevated, CXR + for CHF, increased PND and orthopnea. Recent echo with EF 60%, defer repeat. She also was noted to have moderate pulmonary HTN with PASP of 70mmHg, complicating her diagnosis. Will also check mag and TSH. Will interrogate loop recorder. 2. Chronic Afib - seems to be responding well to cardizem given in ER. Continue Metoprolol, consider increasing dose. Has subjective episodes of tachy at home. Noanticoagulation with hx of GI bleed. 3. CAD - stent/NM 04/07/2019. Continue aspirin/brillinta/statin/metoprolol. With intermittent chest dull ache will cycle enzymes and repeat EKG in AM. 4. Pulmonary HTN - follows Dr. Wylie 5. CKDIII - does not appear to be above baseline 6. Other chronic issues: PAD, HTN, HLD, chronic anemia. DVT ppx: heparin This patient was seen by Pola Leung PA-C under the supervision of Dr. Tyler. <Ciara Tyler - Last Filed: 05/02/19 17:51> History of Present Illness The patient is a 73 year old F [] Past Medical History Medical History: Medical History (Last Reviewed 04/16/19 @ 14:14 by SHY Galindo) Non-ST elevation (NSTEMI) myocardial infarction (Acute) Onset Date: 04/07/19 I21.4 Essential (primary) hypertension (Chronic) I10 Secondary pulmonary arterial hypertension (Chronic) I27.21 Atherosclerosis of coronary artery of [place] heart without angina pectoris (Chronic) I25.10 Chronic atrial fibrillation (Chronic) I48.2 Cardiogenic shock (Acute) Onset Date: 04/07/19 R57.0 Acute inferior myocardial infarction (Acute) Onset Date: 04/07/19 I21.19 Bradycardia by electrocardiogram (Acute) R00.1 Junctional rhythm (Acute) I49.8 Chest pain (Acute) R07.9 Chronic kidney disease, stage 3 (Chronic) N18.3 Acute on chronic diastolic (congestive) heart failure (Chronic) I50.33 Anemia (Chronic) D64.9 PAOD (peripheral arterial occlusive disease) (Chronic) I77.9 Arthralgia M25.50 Calcinosis 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 calciphylaxis vs. erythema nodosum vs. dermatomyositis vs. panniculitis Mass of soft tissue of right lower extremity R22.41 right inner upper thigh - ? calciphylaxis vs. erythema nodosum vs. dermatomyositis vs. panniculitis Myalgia M79.1 Neuropathic pain M79.2 LYN (obstructive sleep apnea) G47.33 Recurrent falls R29.6 Sarcoidosis D86.9 Spinal stenosis of lumbar region with radiculopathy M48.061, M54.16 Type 2 diabetes mellitus E11.9 Ulcer of left lower extremity with fat layer exposed L97.922 Venous insufficiency (chronic) (peripheral) I87.2 Venous stasis ulcer of left lower leg with edema of left lower leg I83.892, I83.028, R60.9 Venous stasis ulcer of right lower leg with edema of right lower leg I83.891, I83.018, R60.9 GI bleeding K92.2 Hypersomnia G47.10 Ulcer of right lower extremity with fat layer exposed L97.[address] of chest (Inactive) R93.8 Cellulitis (Inactive) L03.90 Coumadin-induced coagulopathy (Inactive) Dyspnea on exertion (Inactive) R06.09 Edema, lower extremity (Inactive) R60.0 Generalized weakness (Inactive) Hypokalemia (Inactive) E87.6 Localized edema (Inactive) R60.0 Pain in left leg (Inactive) M79.605 Pain in right leg (Inactive) M79.604 Shortness of breath (Inactive) R06.02 Symptomatic anemia (Inactive) D64.9 Weakness (Inactive) R53.1 Allergies amlodipine besylate [From Norvasc] Allergy (Verified 04/16/19 13:43) Unknown ceftriaxone Allergy (Verified 04/16/19 13:43) Rash doxazosin [From Cardura] Allergy (Verified 04/16/19 13:43) Unknown doxazosin mesylate [From Cardura] Allergy (Verified 04/16/19 13:43) Other VEINS TURNED RED doxycycline Allergy (Verified 04/16/19 13:43) Unknown Pt doesn't remember enalapril maleate [From Vasotec] Allergy (Verified 04/16/19 13:43) Rash enalaprilat dihydrate [From Vasotec] Allergy (Verified 04/16/19 13:43) Rash hydroxyzine HCl [From Vistaril] Allergy (Verified 04/16/19 13:43) Rash hydroxyzine pamoate [From Vistaril] Allergy (Verified 04/16/19 13:43) Rash meperidine HCl [From Demerol] Allergy (Verified 04/16/19 13:43) Rash Sulfa (Sulfonamide Antibiotics) Allergy (Verified 04/16/19 13:43) Hives sulfamethoxazole [From Bactrim] Allergy (Verified 04/16/19 13:43) Hives trimethoprim [From Bactrim] Allergy (Verified 04/16/19 13:43) Hives Surgical History: Surgical History (Last Reviewed 04/16/19 @ 14:14 by SHY Galindo) History of coronary artery stent placement (Acute) Z95.5 PCI-thrombectomy and BMS- Distal RCA w/ 3.0 x 16 mm Rebel Stent 04/07/19 H/O skin graft Z98.890 08/01/18 @ [facility] History of cardiac radiofrequency ablation (RFA) Onset Date: 01/09/17 Z98.890 Lt Atrial Ablation 01/12/17 History of hysterectomy Z90.710 History of loop recorder Z98.890 Implant: 01/03/[address] Roach History of loop recorder Onset Date: 01/09/17 Z98.890 History of lymph node excision Z98.890 x 2 History of maze procedure Z98.890 History of patent ductus arteriosus Z87.74 closure History of removal of skin mole Z98.890, Z87.2 S/P PICC central line placement Z95.828 S/P laparoscopic cholecystectomy Z90.49 Status post laparoscopic [place] fundoplication Z98.890 h/o left foot surgery - *Family History Maternal Family History: Family History (Last Reviewed 04/16/19 @ 14:14 by SHY Galindo) Mother Diabetes Brother Diabetes Myocardial infarction Cancer Son Hypertension Daughter Arthritis Diabetes Hypertension Brother Cancer Paternal Family History: Family History (Last Reviewed 04/16/19 @ 14:14 by SHY Galindo) Mother Diabetes Brother Diabetes Myocardial infarction Cancer Son Hypertension Daughter Arthritis Diabetes Hypertension Brother Cancer - Physical Exam Vital Signs Temp Pulse Resp BP Pulse Ox 97 F L 75 17 145/77 H 97 05/02/19 14:20 05/02/19 16:11 05/02/19 16:11 05/02/19 14:20 05/02/19 16:11 Oxygen Delivery Method Room Air Weight: 192 lb Body Mass Index (BMI) 35.1 Finger Stick Blood Glucose 124 Laboratory Tests Past 24 Hrs 05/02/19 05/02/19 05/02/19 14:45 14:45 14:45 WBC 11.1 H RBC 4.96 Hgb 14.9 Hct 45.1 MCV 90.9 MCH 30.0 MCHC 33.0 RDW Std Deviation 49.0 H RDW Coeff of [place]ike 14.9 H Plt Count 184 MPV 11.1 Immature Gran % (Auto) 0.500 Neut % (Auto) 83.6 H Lymph % (Auto) 8.3 L [place] % (Auto) 6.9 Eos % (Auto) 0.5 Baso % (Auto) 0.2 Absolute Neuts (auto) 9.2 H Absolute Lymphs (auto) 0.92 Nucleated RBC % 0 Sodium 142 Potassium 3.8 Chloride 106 Carbon Dioxide 25.0 Anion Gap 11 BUN 28 H Creatinine 1.37 H Estim Creat Clear Calc 29.36 Est GFR (MDRD) Af Amer 49 L Est GFR (MDRD) Non-Af 40 L BUN/Creatinine Ratio 20.4 H Glucose 168 H Calcium 9.6 Troponin I < 0.015 B-Natriuretic Peptide 468.4 H Assessment/Plan Patient seen by Pola Leung PA-C under my supervision Patient is a 73-year-old female with a past medical history as listed. She was admitted through the ED on 05/02/19 with a complaint of shortness of breath. Patient had non-STEMI on April 07 of this year and is status post stent placement. Patient states she also remains short of breath since the procedure today she is progressively worsened since then. Patient states shortness of breath is at rest and with lying flat. He had also been having palpitations but denied any dizziness, lower extremity DVT edema or any other symptoms. She complains of intermittent chest pain which she describes as a dull ache but denies chest pain at time of review. She denied any fever or chills, cough, nausea vomiting or diarrhea. On admission in the ED she was noted to be going into A. fib with RVR. Labs were significant for initial negative troponin and BNP of 468.4. CBC was essentially unremarkable. Chest x-ray showed cardiomegaly with vascular congestion and EKG showed A. fib with rate of 96 beats per minutes. She has been admitted to be managed for acute exacerbation of heart failure with preserved EF and also for A. fib with RVR. Of note she claims compliance with lasix. o/e: Vital Signs Height 5 ft 2 in Weight: 192 lb Weight in Pounds 192.0 lbs BMI 35.8 Pulse Ox 97 Temperature 97 F Pulse Rate 75 Respiratory Rate 17 Blood Pressure 145/77 General: Alert, Oriented x3, Cooperative HEENT: Atraumatic, PERRLA, EOMI, Normocephalic Neck: Supple, No JVD, Negative Carotid Bruits Lungs: No rales, decreased breath sounds bibasally, no wheeze or rales. Cardiovascular: Irregular Rate, normal S1 and S2, no murmurs Abdomen: Bowel Sounds Present, Soft, Non Tender Extremities: No edema, Capillary Refill Less than 3 Seconds Skin: No rashes, No breakdown Musculoskeletal: No Tenderness to Palpation of Joints or Extremities Neurological: Cranial nerves II-XII grossly intact Psych/Mental Status: Normal Affect, Appropriate, Alert and oriented to time, place, person, mood and affect Plan is to manage for acute exacerbation of heart failure with preserved EF. EF is known to be 60%. Will diurese with IV lasix 40mg bid. Monitor intake and out put and restrict fluid to 1500cc daily. patient also has moderate pulmonary hypertension per echo, with RVSP of 70mmHg, which is likely contributing to shortness of breath. Cycle troponins. Breathing treatments. Heart rate had improved after she was given 1 dose of Cardizem in the ED. Will monitor and start Cardizem drip as needed. CODE STATUS discussed with patient and patient opted to be full code. Total [id number] time spent with patient about CODE STATUS 16 minutes. Rest of management as per Pola Leung PA-C's notes which I reviewed and endorsed. Code Visit Inpatient E&M: 63083 Init Hosp L3
--- NOTE | 2019-05-02 16:16 | NURSING ---
126 KORAM DYSPNEA, AFIB RVR, CHF
[2019-05-02] MEDS: Furosemide 100 MG/10 ML Vial 80 MG IV (16:32)
[2019-05-02 18:18] LABS: Magnesium 1.8 mg/dL (1.6-2.6); Thyroid Stim Hormone (TSH) 0.02 uIU/mL (0.358-3.74)
[2019-05-02] MEDS: Albuterol 2.5 MG/3 ML VIAL.NEB. INHALATION (18:52)
[2019-05-02] MEDS: Metoprolol Tartrate 50 MG Tablet PO (21:53)
[2019-05-02] MEDS: 0.9% NaCl Peripheral Flush Adult/Peds IV (21:53)
[2019-05-02] MEDS: TICAGRELOR 90 MG TABLET PO (21:53)
[2019-05-02] MEDS: Atorvastatin Calcium 40 MG Tablet PO (21:53)
[2019-05-02] MEDS: Furosemide 40 MG/4 ML Vial IV (21:53)
[2019-05-03] VITALS (17 sets, daily range): BP systolic 97–132; BP diastolic 49–85; PULSE 65–111; RESP 14–19; TEMP 36.3–37.2; O2SAT 92–97
[2019-05-03] MEDS: Albuterol 2.5 MG/3 ML VIAL.NEB. INHALATION (00:36)
[2019-05-03] MEDS: 0.9% NaCl Peripheral Flush Adult/Peds IV ×4 (00:54→17:38)
[2019-05-03 01:17] LABS: Absolute Lymphocyte Count 2.15 X10^3/uL (0.83-4.51); Absolute Neutrophil Count 8.4 X10^3/uL (2.0-7.7); Basophil# 0.03 X10^3/uL; Basophil% 0.3 % (0-1); Eosinophil# 0.14 X10^3/uL; Eosinophils% 1.2 % (0-5); Hematocrit 44.8 % (37-47); Hemoglobin 14.8 g/dL (12.0-15.0); Lymphocyte # 2.15 X10^3/ul (4.0); Mean Corpuscular Hgb 29.7 pg (27.0-32.0); Mean Platelet Vol. 11.2 fl (6.2-12.0); Monocyte# 1.18 X10^3/uL; Monocyte% 9.9 % (0-10); NRBC Flagged by Analyzer 0 % (0-5); Neutrophil # 8.38 X10^3/uL (2.7-7.7); Neutrophil % 69.9 % (47-70); Platelet Count 182 K/mm3 (150-450); RBC Distribution Width CV 15.2 % (11.6-14.6); RBC Distribution Width SD 49.5 fl (35.1-43.9); Red Blood Count 4.98 M/mm3 (4.2-5.4)
[2019-05-03 01:34] LABS: Anion Gap 7 (5-15); BUN 30 mg/dL (7-18); BUN/Creat Ratio 23.3 RATIO (10-20); Calcium,Total 9.6 mg/dL (8.5-10.1); Chloride 101 mmol/L (98-107); Creatinine, Serum 1.29 mg/dL (0.55-1.02); EST Glomerular Filtration Rate 43 mL/min (>60); Est Glom Filt Rate - Afr Amer 52 mL/min (>60); Estimated Creatinine Clearance 31.18 ml/min; Glucose 123 mg/dL (74-106); Potassium 3.2 mmol/L (3.5-5.1); Sodium Level 138 mmol/L (136-145)
--- NOTE | 2019-05-03 05:09 | EKG12_ITS ---
Test Reason : AM EKG Blood Pressure : / mmHG Vent. Rate : 091 BPM Atrial Rate : 093 BPM P-R Int : 000 ms QRS Dur : 098 ms QT Int : 384 ms P-R-T Axes : 000 048 -76 degrees QTc Int : 472 ms Atrial fibrillation with premature ventricular or aberrantly conducted complexes Cannot rule out Inferior infarct , age undetermined ST & T wave abnormality, consider anterolateral ischemia Abnormal ECG When compared with ECG of 02-MAY-2019 22:00, MANUAL COMPARISON REQUIRED, DATA IS UNCONFIRMED Confirmed by ALYSA FARR ([id number]), photograph editor CARLENE NELSON ([id number]) on 05/10/2019 1:06:05 PM Referred By: MERI Confirmed By:ALYSA FARR
--- NOTE | 2019-05-03 05:55 | EKG12_ITS ---
Test Reason : CHEST TIGHTNESS Blood Pressure : / mmHG Vent. Rate : 098 BPM Atrial Rate : 081 BPM P-R Int : 000 ms QRS Dur : 092 ms QT Int : 376 ms P-R-T Axes : 000 042 -78 degrees QTc Int : 480 ms Atrial fibrillation with premature ventricular or aberrantly conducted complexes Inferior infarct , age undetermined ST & T wave abnormality, consider lateral ischemia Abnormal ECG When compared with ECG of 02-MAY-2019 14:49, MANUAL COMPARISON REQUIRED, DATA IS UNCONFIRMED Confirmed by ALYSA FARR ([id number]), editor continuity and script CONRADO JOHNSON ([id number]) on 05/09/2019 3:00:06 PM Referred By: Confirmed By:ALYSA FARR
[2019-05-03] MEDS: Aspirin E.C. 81 MG Tablet PO (08:11)
[2019-05-03] MEDS: TICAGRELOR 90 MG TABLET PO ×2 (08:11→21:47)
[2019-05-03] MEDS: Metoprolol Tartrate 50 MG Tablet PO ×2 (08:11→17:35)
[2019-05-03] MEDS: predniSONE 5 MG Tablet PO (08:11)
[2019-05-03] MEDS: Furosemide 40 MG/4 ML Vial IV ×2 (09:41→17:36)
[2019-05-03 10:31] LABS: Free T3 4.5 pg/mL (2.18-3.98); T4 Free Direct 2.08 ng/dL (0.76-1.46)
--- NOTE | 2019-05-03 11:28 | US_ITS ---
STUDY: THYROID ULTRASOUND REASON FOR EXAM: Female, 73 years old. Hyperthyroidism TECHNIQUE: Ultrasound evaluation of the thyroid was performed with real-time and static elias-scale imaging. COMPARISON: None. FINDINGS: RIGHT LOBE: The right lobe of the thyroid gland measures 4.6 x 1.6 x 1.1 cm. There is a homogeneous echotexture. There is a hypoechoic avascular 7 x 9 x 6 mm lower pole nodule. LEFT LOBE: The left lobe of the thyroid gland measures 5.0 x 1.7 x 2.0 cm. There is a homogeneous echotexture. There are several similar size 3 x 2 mm cystic appearing nodules in the left thyroid. ISTHMUS: The isthmus measures 5 mm . The regional lymph nodes are normal. US/Thyroid IMPRESSION: Multiple bilateral nodules with well circumscribed borders. Borderline enlarged left greater than right thyroid gland. On the left side, there are approximately 3 small cystic structures may represent small colloid cysts measuring measuring 3 to 2 mm. On the right side there is an hypoechoic avascular nonspecific 7 x 9 x 6 mm nodule for which a six-month follow-up ultrasound is recommended. Electronically Signed: Naida Leslie MD at 18:04 EDT Tel , Service support ,
--- NOTE | 2019-05-03 13:50 | PN_ITS ---
<Pola Leung - Last Filed: 05/03/19 13:50> Patient Problems: Active and Suspected Problems (Last Reviewed 04/16/19 @ 14:14 by SHY Galindo) Atrial fibrillation with RVR (Acute) Diastolic CHF (Acute) Subjective: Pt feels significant improvement in breathing. Off O2. Ambulated without o2 no SOB. Diuresing well. This has not been measured. No fever/chills. No CP/pressure/tightness/heaviness. - Physical Exam General: Alert, Oriented x3, Cooperative HEENT: Atraumatic, PERRLA, EOMI, Normocephalic, Thyromegaly - diffuse enlargement. no nodules appreciated. Neck: Supple, No JVD, Negative Carotid Bruits Lungs: Clear to auscultation, Normal air movement Cardiovascular: Regular rate, No murmurs Abdomen: Bowel Sounds Present, Soft, Non Tender Extremities: No edema, Capillary Refill Less than 3 Seconds Skin: No rashes, No breakdown Musculoskeletal: No Tenderness to Palpation of Joints or Extremities Neurological: Cranial nerves II-XII grossly intact Psych/Mental Status: Normal Affect, Appropriate, Alert and oriented to time, place, person, mood and affect Vital Signs Temp Pulse Resp BP Pulse Ox 98.9 F 95 14 101/55 L 95 05/03/19 08:06 05/03/19 11:23 05/03/19 08:06 05/03/19 08:11 05/03/19 08:06 Oxygen Delivery Method Room Air Weight: 193 lb 12.581 oz Body Mass Index (BMI) 35.4 Finger Stick Blood Glucose 124 Intake and Output for Last 24 Hours 05/01/19 05/02/19 05/03/19 23:59 23:59 23:59 Intake Total 260 / 260 672.6 / 672.6 Output Total 550 / 550 Balance 260 / 260 122.6 / 122.6 Laboratory Tests Past 24 Hrs 05/02/19 05/02/19 05/02/19 14:45 14:45 14:45 WBC 11.1 H RBC 4.96 Hgb 14.9 Hct 45.1 MCV 90.9 MCH 30.0 MCHC 33.0 RDW Std Deviation 49.0 H RDW Coeff of Heike 14.9 H Plt Count 184 MPV 11.1 Immature Gran % (Auto) 0.500 Neut % (Auto) 83.6 H Lymph % (Auto) 8.3 L [place] % (Auto) 6.9 Eos % (Auto) 0.5 Baso % (Auto) 0.2 Absolute Neuts (auto) 9.2 H Absolute Lymphs (auto) 0.92 Nucleated RBC % 0 Sodium 142 Potassium 3.8 Chloride 106 Carbon Dioxide 25.0 Anion Gap 11 BUN 28 H Creatinine 1.37 H Estim Creat Clear Calc 29.36 Est GFR (MDRD) Af Amer 49 L Est GFR (MDRD) Non-Af 40 L BUN/Creatinine Ratio 20.4 H Glucose 168 H Calcium 9.6 Magnesium Troponin I < 0.015 B-Natriuretic Peptide 468.4 H TSH Free T4 Free T3 pg/dL 05/02/19 05/02/19 05/02/19 14:45 18:15 21:15 WBC RBC Hgb Hct MCV MCH MCHC RDW Std Deviation RDW Coeff of Heike Plt Count MPV Immature Gran % (Auto) Neut % (Auto) Lymph % (Auto) [place] % (Auto) Eos % (Auto) Baso % (Auto) Absolute Neuts (auto) Absolute Lymphs (auto) Nucleated RBC % Sodium Potassium Chloride Carbon Dioxide Anion Gap BUN Creatinine Estim Creat Clear Calc Est GFR (MDRD) Af Amer Est GFR (MDRD) Non-Af BUN/Creatinine Ratio Glucose Calcium Magnesium 1.8 Troponin I < 0.015 < 0.015 B-Natriuretic Peptide TSH 0.02 L Free T4 Free T3 pg/dL 05/03/19 05/03/19 05/03/19 01:03 01:03 01:03 WBC 12.0 H RBC 4.98 Hgb 14.8 Hct 44.8 MCV 90.0 MCH 29.7 MCHC 33.0 RDW Std Deviation 49.5 H RDW Coeff of Heike 15.2 H Plt Count 182 MPV 11.2 Immature Gran % (Auto) 0.700 Neut % (Auto) 69.9 Lymph % (Auto) 18.0 L [place] % (Auto) 9.9 Eos % (Auto) 1.2 Baso % (Auto) 0.3 Absolute Neuts (auto) 8.4 H Absolute Lymphs (auto) 2.15 Nucleated RBC % 0 Sodium 138 Potassium 3.2 L Chloride 101 Carbon Dioxide 30.0 Anion Gap 7 BUN 30 H Creatinine 1.29 H Estim Creat Clear Calc 31.18 Est GFR (MDRD) Af Amer 52 L Est GFR (MDRD) Non-Af 43 L BUN/Creatinine Ratio 23.3 H Glucose 123 H Calcium 9.6 Magnesium Troponin I B-Natriuretic Peptide TSH Free T4 2.08 H Free T3 pg/dL 4.5 H Medical Necessity - Tobacco Use Smoking Status: Never smoker Assessment/Plan All Active Problems (Last Reviewed 04/16/19 @ 14:14 by SHY Galindo) Atrial fibrillation with RVR (Acute) Diastolic CHF (Acute) Non-ST elevation (NSTEMI) myocardial infarction (Acute 04/07/19) History of coronary artery stent placement (Acute) Cardiogenic shock (Acute 04/07/19) Acute inferior myocardial infarction (Acute 04/07/19) Bradycardia by electrocardiogram (Acute) Junctional rhythm (Acute) Chest pain (Acute) 1. Acute on chronic diastolic CHF exacerbation suspect 2/2 episodic Afib RVR - good diuresis, SOB improved. Rate better. Continued home beta alok and has been stable. No additional cardizem was given, received one dose in ER. -TSH suppressed, T3/4 elevated. Hyperthyroidism possibly contributing to RVR. Continue beta alok, start tapazole. Diffuse thyroid enlargement - obtain ultrasound. -need loop recorder interrogated. -trop negative x3 no further chest discomfort - this was described as dull ache at presentation. -mag and K repleted, recheck in AM. -recent echo, defer repeat. 2. Chronic Afib - seems to be responding well to cardizem given in ER. Continue Metoprolol, consider increasing dose. Has subjective episodes of tachy at home. Noanticoagulation with hx of GI bleed. 3. CAD - stent/VA 04/07/2019. Continue aspirin/brillinta/statin/metoprolol. 4. Pulmonary HTN - follows Dr. Wylie 5. CKDIII - does not appear to be above baseline 6. Other chronic issues: PAD, HTN, HLD, chronic anemia. 7. hx Sarcoidosis - on chronic prednisone. DVT ppx: heparin This patient was seen by Pola Leung PA-C under the supervision of Dr. Lopez <Frederic Lopez - Last Filed: 05/03/19 15:31> Subjective: Seen and examined. Patient labs shows hypothyroidism. She denies signs and symptoms of thyroidism except A. fib with RVR. Denies warm or hot, restlessne ss, anxiety, hyperactive symptoms, insomnia or diarrhea. Patient is already on metoprolol and heart rate is controlled. Started on Tapazole No chest pain tightness or heaviness. - Physical Exam General: Alert, Oriented x3, Cooperative HEENT: Atraumatic, PERRLA, EOMI, Normocephalic, - - Patient does not have high signs of hyperthyroidism. No proptosis or lid lag. Patient has feeling of dry eye on gritty sensation. Neck: Supple, No JVD, Negative Carotid Bruits, - - Enlarged thyroid. No obvious thyroid nodule palpated. Lungs: Clear to auscultation, Normal air movement, No wheeze, No rales Cardiovascular: Regular rate, No murmurs Abdomen: Bowel Sounds Present, Soft, Non Tender Extremities: No edema, Capillary Refill Less than 3 Seconds Skin: No rashes, No breakdown Musculoskeletal: No Tenderness to Palpation of Joints or Extremities Neurological: Cranial nerves II-XII grossly intact Psych/Mental Status: Normal Affect, Appropriate Vital Signs Temp Pulse Resp BP Pulse Ox 98.4 F 82 15 113/70 92 05/03/19 14:45 05/03/19 14:45 05/03/19 14:45 05/03/19 14:45 05/03/19 14:45 Oxygen Delivery Method Room Air Weight: 193 lb 12.581 oz Body Mass Index (BMI) 35.4 Finger Stick Blood Glucose 124 Orthostatic Vital Signs Start: 05/03/19 14:42 Freq: q24h Status: Active Protocol: Activity Type Activity Date Activity User E-Sign Co-Sign Detail Recorded Client Recorded Date Recorded By Document 05/03/19 14:42 DS [id number] 05/03/19 14:49 DS 05/03/19 14:42 Orthostatic Vitals Standing -Blood Pressure (90/60-120/80) 97/49 L -Extremity Use Right Arm -Pulse Rate (60-100) 86 Sitting -Blood Pressure (90/60-120/80) 108/64 -Extremity Use Right Arm -Pulse Rate (60-100) 106 H Lying -Blood Pressure (90/60-120/80) 113/70 -Extremity Use Right Arm -Pulse Rate (60-100) 94 Intake and Output for Last 24 Hours 05/01/19 05/02/19 05/03/19 23:59 23:59 23:59 Intake Total 260 / 260 672.6 / 672.6 Output Total 550 / 550 Balance 260 / 260 122.6 / 122.6 Laboratory Tests Past 24 Hrs 05/02/19 05/02/19 05/02/19 14:45 14:45 14:45 WBC RBC Hgb Hct MCV MCH MCHC RDW Std Deviation RDW Coeff of Heike Plt Count MPV Immature Gran % (Auto) Neut % (Auto) Lymph % (Auto) [place] % (Auto) Eos % (Auto) Baso % (Auto) Absolute Neuts (auto) Absolute Lymphs (auto) Nucleated RBC % Sodium 142 Potassium 3.8 Chloride 106 Carbon Dioxide 25.0 Anion Gap 11 BUN 28 H Creatinine 1.37 H Estim Creat Clear Calc 29.36 Est GFR (MDRD) Af Amer 49 L Est GFR (MDRD) Non-Af 40 L BUN/Creatinine Ratio 20.4 H Glucose 168 H Calcium 9.6 Magnesium 1.8 Troponin I < 0.015 B-Natriuretic Peptide 468.4 H TSH 0.02 L Free T4 Free T3 pg/dL 05/02/19 05/02/19 05/03/19 18:15 21:15 01:03 WBC 12.0 H RBC 4.98 Hgb 14.8 Hct 44.8 MCV 90.0 MCH 29.7 MCHC 33.0 RDW Std Deviation 49.5 H RDW Coeff of Heike 15.2 H Plt Count 182 MPV 11.2 Immature Gran % (Auto) 0.700 Neut % (Auto) 69.9 Lymph % (Auto) 18.0 L [place] % (Auto) 9.9 Eos % (Auto) 1.2 Baso % (Auto) 0.3 Absolute Neuts (auto) 8.4 H Absolute Lymphs (auto) 2.15 Nucleated RBC % 0 Sodium Potassium Chloride Carbon Dioxide Anion Gap BUN Creatinine Estim Creat Clear Calc Est GFR (MDRD) Af Amer Est GFR (MDRD) Non-Af BUN/Creatinine Ratio Glucose Calcium Magnesium Troponin I < 0.015 < 0.015 B-Natriuretic Peptide TSH Free T4 Free T3 pg/dL 05/03/19 05/03/19 01:03 01:03 WBC RBC Hgb Hct MCV MCH MCHC RDW Std Deviation RDW Coeff of Heike Plt Count MPV Immature Gran % (Auto) Neut % (Auto) Lymph % (Auto) [place] % (Auto) Eos % (Auto) Baso % (Auto) Absolute Neuts (auto) Absolute Lymphs (auto) Nucleated RBC % Sodium 138 Potassium 3.2 L Chloride 101 Carbon Dioxide 30.0 Anion Gap 7 BUN 30 H Creatinine 1.29 H Estim Creat Clear Calc 31.18 Est GFR (MDRD) Af Amer 52 L Est GFR (MDRD) Non-Af 43 L BUN/Creatinine Ratio 23.3 H Glucose 123 H Calcium 9.6 Magnesium Troponin I B-Natriuretic Peptide TSH Free T4 2.08 H Free T3 pg/dL 4.5 H Assessment/Plan This patient was seen in conjunction with Pola BEGUM. I have independently interviewed and examined the patient and reviewed pertinent history, examination findings, laboratory and plan of management. I have reviewed the note and agree with the documented findings with the few additional points. In brief, patient is admitted for shortness of breath secondary to acute on chronic diastolic heart failure due to A. fib with RVR. Chest x-ray shows vascular congestion. Patient diuresed well and shortness of breath has improved. On further labs, thyroid functions a history of hypothyroidism. Patient already on metoprolol. Heart rate is controlled but varies between 65 to 82/min. Tapazole 5 mg 3 times daily started. Patient has contraindication for anti-correlation secondary to GI bleed. Patient also has CKD stage III but creatinine is stable between 1.3-1.4. Other chronic comorbidities including hypertension, dyslipidemia, chronic anemia, peripheral arterial disease and pulmonary hypertension stable. I have discussed my assessment with Pola BEGUM and orders have been reviewed. Clinical Impression(s) from Imaging Studies Chest X-Ray 05/02/19 15:05 IMPRESSION: Cardiomegaly. Vascular congestion. Laboratory Results 05/02/19 14:45: Sodium 142, Potassium 3.8, Chloride 106, Carbon Dioxide 25.0, Anion Gap 11, BUN 28 H, Creatinine 1.37 H, Estim Creat Clear Calc 29.36, Est GFR (MDRD) Af Amer 49 L, Est GFR (MDRD) Non-Af 40 L, BUN/Creatinine Ratio 20.4 H, Glucose 168 H, Calcium 9.6, Troponin I < 0.015 05/02/19 14:45: B-Natriuretic Peptide 468.4 H 05/02/19 14:45: Magnesium 1.8, TSH 0.02 L 05/02/19 18:15: Troponin I < 0.015 05/02/19 21:15: Troponin I < 0.015 05/03/19 01:03: WBC 12.0 H, RBC 4.98, Hgb 14.8, Hct 44.8, MCV 90.0, MCH 29.7, MCHC 33.0, RDW Std Deviation 49.5 H, RDW Coeff of Heike 15.2 H, Plt Count 182, MPV 11.2, Immature Gran % (Auto) 0.700, Neut % (Auto) 69.9, Lymph % (Auto) 18.0 L, [place] % (Auto) 9.9, Eos % (Auto) 1.2, Baso % (Auto) 0.3, Absolute Neuts (auto) 8.4 H, Absolute Lymphs (auto) 2.15, Nucleated RBC % 0 05/03/19 01:03: Sodium 138, Potassium 3.2 L, Chloride 101, Carbon Dioxide 30.0, Anion Gap 7, BUN 30 H, Creatinine 1.29 H, Estim Creat Clear Calc 31.18, Est GFR (MDRD) Af Amer 52 L, Est GFR (MDRD) Non-Af 43 L, BUN/Creatinine Ratio 23.3 H, Glucose 123 H, Calcium 9.6 05/03/19 01:03: Free T4 2.08 H, Free T3 pg/dL 4.5 H Code Visit Inpatient E&M: 58105 Subs Hosp L3
[2019-05-03] MEDS: Methimazole 5 MG Tablet PO ×2 (14:20→21:48)
--- NOTE | 2019-05-03 14:37 | CASEMGMT ---
ANNETTA CM Readmission Note Previous Admission: 04/08/19 to 04/09/19 Diagnosis: NSTEMI DC Disposition: Home Current Admission Presentation: 05/02/19 Acute on chronic CHF exacerbation secondary to Afib with RVR. PCP: Dr. Tidwell- pt did not f/u on dc Specialists: Dr. Childers- did see JAC Elise on 04/18/19 Preferred Pharmacy: [facility] or [address], [place] if Hospital pharmacy is closed. [facility]: yes. Pt states she filled all prescriptions, understood medications and was taking them properly. LNOK: Geraldo Zapata Living Arrangements: Lives in Mobile Home with her . 7 steps into home, handrails on both sides. Pt states she is independent at home, no care needs with ADL's Transportation: drives. DME: walker, rollator, wheelchair, Bipap @ home, pt states she wears occasionally. [facility] DME provider in past. HHC: [facility] past (2017) Patient DC goals: Home DC PLAN: Anticipate Home with family support. Je BLANC RN ACM
[2019-05-03] MEDS: Metoprolol Tartrate 50 MG Tablet 75 MG PO (21:47)
[2019-05-03] MEDS: Atorvastatin Calcium 40 MG Tablet PO (21:47)
[2019-05-04 03:04] VITALS: PULSE 78
[2019-05-04 03:45] VITALS: BP 116/71; PULSE 85; RESP 16; TEMP 36.9; O2SAT 98
[2019-05-04] MEDS: Methimazole 5 MG Tablet PO (05:22)
[2019-05-04 07:00] VITALS: PULSE 99
[2019-05-04 07:56] LABS: Anion Gap 12 (5-15); BUN 36 mg/dL (7-18); BUN/Creat Ratio 23.1 RATIO (10-20); Calcium,Total 9.5 mg/dL (8.5-10.1); Chloride 98 mmol/L (98-107); Creatinine, Serum 1.56 mg/dL (0.55-1.02); EST Glomerular Filtration Rate 35 mL/min (>60); Est Glom Filt Rate - Afr Amer 42 mL/min (>60); Estimated Creatinine Clearance 25.78 ml/min; Glucose 149 mg/dL (74-106); Potassium 2.7 mmol/L (3.5-5.1); Sodium Level 138 mmol/L (136-145)
[2019-05-04] MEDS: Aspirin E.C. 81 MG Tablet PO (08:29)
[2019-05-04] MEDS: predniSONE 5 MG Tablet PO (08:30)
[2019-05-04 09:41] VITALS: BP 114/82; PULSE 76; RESP 14; TEMP 36.3; O2SAT 99
[2019-05-04 09:44] VITALS: PULSE 83
[2019-05-04] MEDS: TICAGRELOR 90 MG TABLET PO (09:44)
[2019-05-04] MEDS: Furosemide 40 MG Tablet PO (09:44)
[2019-05-04] MEDS: Metoprolol Tartrate 50 MG Tablet 75 MG PO (09:44)
[2019-05-04 10:58] VITALS: PULSE 112
--- NOTE | 2019-05-04 11:36 | DCINST_ITS ---
- Discharge Diagnoses Current Active Problems: Current Active and Chronic Problems (Last Updated 05/03/19 @ 16:11 by Kandy Gongora) Atrial fibrillation with RVR (Acute) Diastolic CHF (Acute) CAD (coronary artery disease) (Chronic) You will use the following diet at home:: Cardiac Your food should be the consistency of: Regular Your liquids should be the consistency of: Regular/Thin Discharge Activity: Return to Normal Activity Additional Instructions: You need to talk to your family doctor about having additional blood work including a basic metabolic panel at follow up. You will also need a follow up ultrasound of your thyroid nodules in 6 months, and need to periodically have your thyroid hormone levels evaluated. Allergies/Adverse Reactions: Allergies amlodipine besylate [From Norvasc] Allergy (Verified 04/16/19 13:43) Unknown ceftriaxone Allergy (Verified 04/16/19 13:43) Rash doxazosin [From Cardura] Allergy (Verified 04/16/19 13:43) Unknown doxazosin mesylate [From Cardura] Allergy (Verified 04/16/19 13:43) Other VEINS TURNED RED doxycycline Allergy (Verified 04/16/19 13:43) Unknown Pt doesn't remember enalapril maleate [From Vasotec] Allergy (Verified 04/16/19 13:43) Rash enalaprilat dihydrate [From Vasotec] Allergy (Verified 04/16/19 13:43) Rash hydroxyzine HCl [From Vistaril] Allergy (Verified 04/16/19 13:43) Rash hydroxyzine pamoate [From Vistaril] Allergy (Verified 04/16/19 13:43) Rash meperidine HCl [From Demerol] Allergy (Verified 04/16/19 13:43) Rash Sulfa (Sulfonamide Antibiotics) Allergy (Verified 04/16/19 13:43) Hives sulfamethoxazole [From Bactrim] Allergy (Verified 04/16/19 13:43) Hives trimethoprim [From Bactrim] Allergy (Verified 04/16/19 13:43) Hives Medications to take at Discharge prednisone 10 mg tablet 5 mg PO DAILY tab 10/08/18 metoprolol tartrate 50 mg tablet 50 mg PO BID #180 tab 04/03/19 Aspirin E.C. [Ecotrin] 81 mg PO DAILY@0800 #30 tab 04/09/19 Atorvastatin Calcium [Lipitor] 40 mg PO QHS #30 tab 04/09/19 Ticagrelor [Brilinta] 90 mg PO BID #60 tab 04/09/19 Furosemide [Lasix] 40 mg PO BID@1000,1800 #60 tab 05/04/19 Methimazole 10 mg PO DAILY #30 tab 05/04/19 Methimazole [Tapazole] 5 mg PO Q8H #18 tab 05/04/19 Potassium Chloride [K-Tab ER] 20 meq PO BID #60 tab 05/04/19 The following prescriptions were given: Potassium Chloride [K-Tab ER] 20 meq PO BID #60 tab Transmission Status: Pending to [facility] Furosemide [Lasix] 40 mg PO BID@1000,1800 #60 tab Transmission Status: Pending to [facility] Methimazole 10 mg PO DAILY #30 tab Transmission Status: Pending to [facility] Methimazole [Tapazole] 5 mg PO Q8H #18 tab Transmission Status: Pending to [facility] Primary Care Physician: Aaron Tidwell MD [Primary Care Provider] - Please follow up with your Primary Care Physician in: 1-2 weeks Test Results: Test results from this visit will be discussed in further detail at your follow- up appointment, if applicable. Please Follow Up With: Epifanio Childers MD - call for appointment When: 2 weeks Proposed Discharge Date: 05/04/19
--- NOTE | 2019-05-04 13:34 | DS.PCM_ITS ---
<Pola Leung - Last Filed: 05/04/19 13:34> Discharge Date and Diagnosis Date of Admission: 05/02/19 Date of Discharge: 05/04/19 - Primary Discharge Diagnosis Active and Suspected Problems (Last Updated 05/03/19 @ 16:11 by Kandy Gongora) Chronic Atrial fibrillation with RVR (Acute) Acute on chronic Diastolic CHF likely 2/2 intermittent Afib RVR Hyperthyroidism suspected contributing to #1 Multinodular thyroid CAD CKDIII Pulmonary HTN Sarcoidosis PAD, HTN, HLD, chronic anemia - Secondary Discharge Diagnosis Chronic Problems (Last Updated 05/03/19 @ 16:11 by Kandy Gongora) Status post placement of implantable loop recorder (Chronic) CAD (coronary artery disease) (Chronic) Essential (primary) hypertension (Chronic) Secondary pulmonary arterial hypertension (Chronic) Atherosclerosis of coronary artery of [place] heart without angina pectoris (Chronic) Chronic atrial fibrillation (Chronic) Chronic kidney disease, stage 3 (Chronic) Acute on chronic diastolic (congestive) heart failure (Chronic) Anemia (Chronic) PAOD (peripheral arterial occlusive disease) (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 Borderline enlarged left greater than right thyroid gland. On the left side, there are approximately 3 small cystic structures may represent small colloid cysts measuring measuring 3 to 2 mm. On the right side there is an hypoechoic avascular nonspecific 7 x 9 x 6 mm nodule for which a six-month follow-up ultrasound is recommended. RAD/Chest 1 View (Portable) IMPRESSION: Cardiomegaly. Vascular congestion. Operations: None Procedures: None Summary of Care Provided: Hospital Course: The patient is a 73 year old F with past medical history as above who presented to the emergency room with complaints of increasing shortness of breath over the past several weeks. She also noticed increased orthopnea and paroxysmal nocturnal dyspnea. Chest x-ray revealed underlying congestive heart failure, BNP was elevated. She also had episodic RVR in the emergency room, and she had felt intermittent palpitations at home. She was given Cardizem in the emergency room which can help control her heart rate significantly. She was admitted to the PCU on telemetry, her home metoprolol was continued, she did not receive any further Cardizem. She had a recent echo in March of this year so we deferred a repeat - it showed EF 60%, PASP 70 mmHg, wall abnormalities, 2+ TVI. She was started on IV Lasix and had significant diuresis. Her shortness of breath and oxygen requirement responded well to the Lasix. On routine lab testing her TSH was suppressed, follow-up T3 and T4 were elevated. Her thyroid was enlarged and a thyroid ultrasound was obtained which demonstrated multiple nodules the largest of which being 7 x 9 x 6 mm and hypoechoic. This will need to follow-up thyroid ultrasound in 6 months. The patient was started on Tapazole. She is completely weaned off oxygen at rest and with ambulation. She had her home Lasix dose adjusted and will continue a week of 3 times daily dosing of Tapazole followed by 10 mg daily. She continued to have mild tachycardia so her metoprolol was increased to 75 BID. She will need follow-up assessment of her potassium, renal function, TSH, T3, T4. She will need to follow-up with her PCP in 1 to 2 weeks. She will need to follow-up with cardiology preferably in the next two weeks. This patient was seen by Pola Leung PA-C under the supervision of Dr. Lopez [] - Physical Exam General: Alert, Oriented x3, Cooperative HEENT: Atraumatic, PERRLA, EOMI, Normocephalic Neck: Supple, No JVD, Negative Carotid Bruits Lungs: Clear to auscultation, Normal air movement Cardiovascular: No murmurs, Irregular Rate Abdomen: Bowel Sounds Present, Soft, Non Tender Extremities: No edema, Capillary Refill Less than 3 Seconds Skin: No rashes, No breakdown Musculoskeletal: No Tenderness to Palpation of Joints or Extremities Neurological: Cranial nerves II-XII grossly intact Psych/Mental Status: Normal Affect, Appropriate, Alert and oriented to time, place, person, mood and affect Vital Signs Temp Pulse Resp BP Pulse Ox 97.4 F L 112 H 14 114/82 H 99 05/04/19 09:41 05/04/19 10:58 05/04/19 09:41 05/04/19 09:41 05/04/19 09:41 Oxygen Delivery Method Room Air Weight: 193 lb 12.581 oz Body Mass Index (BMI) 35.4 Finger Stick Blood Glucose 124 Orthostatic Vital Signs Start: 05/03/19 14:42 Freq: q24h Status: Active Protocol: Activity Type Activity Date Activity User E-Sign Co-Sign Detail Recorded Client Recorded Date Recorded By Document 05/03/19 14:42 DS [id number] 05/03/19 14:49 DS 05/03/19 14:42 Orthostatic Vitals Standing -Blood Pressure (90/60-120/80 mm Hg) 97/49 L -Extremity Use Right Arm -Pulse Rate (60-100 beats/min) 86 Sitting -Blood Pressure (90/60-120/80 mm Hg) 108/64 -Extremity Use Right Arm -Pulse Rate (60-100 beats/min) 106 H Lying -Blood Pressure (90/60-120/80 mm Hg) 113/70 -Extremity Use Right Arm -Pulse Rate (60-100 beats/min) 94 Intake and Output for Last 24 Hours 05/02/19 05/03/19 05/04/19 23:59 23:59 23:59 Intake Total 260 / 260 1222.6 / 1342.6 570 / 570 Output Total 1300 / 1900 1050 / 1050 Balance 260 / 260 -77.4 / -557.4 -480 / -480 Laboratory Tests Past 24 Hrs 05/04/19 05/04/19 06:33 12:55 Sodium 138 Potassium 2.7 L* 4.0 Chloride 98 Carbon Dioxide 28.0 Anion Gap 12 BUN 36 H Creatinine 1.56 H Estim Creat Clear Calc 25.78 Est GFR (MDRD) Af Amer 42 L Est GFR (MDRD) Non-Af 35 L BUN/Creatinine Ratio 23.1 H Glucose 149 H Calcium 9.5 Discharge Diet: Low fat/ Low Cholesterol, 2000 mg Sodium Diet Discharge Activity: Return to Normal Activity Home Medications: Medications to take at Discharge prednisone 10 mg tablet 5 mg PO DAILY tab 10/08/18 Aspirin E.C. [Ecotrin] 81 mg PO DAILY@0800 #30 tab 04/09/19 Atorvastatin Calcium [Lipitor] 40 mg PO QHS #30 tab 04/09/19 Ticagrelor [Brilinta] 90 mg PO BID #60 tab 04/09/19 Furosemide [Lasix] 40 mg PO BID@1000,1800 #60 tab 05/04/19 Methimazole 10 mg PO DAILY #30 tab 05/04/19 Methimazole [Tapazole] 5 mg PO Q8H #18 tab 05/04/19 Metoprolol Tartrate [Lopressor (beta alok)] 75 mg PO BID #90 tab 05/04/19 Potassium Chloride [K-Tab ER] 20 meq PO BID #60 tab 05/04/19 Following Prescrptions Were Given to Patient: Potassium Chloride [K-Tab ER] 20 meq PO BID #60 tab Transmission Status: Received by [facility] Furosemide [Lasix] 40 mg PO BID@1000,1800 #60 tab Transmission Status: Received by [facility] Metoprolol Tartrate [Lopressor (beta alok)] 75 mg PO BID #90 tab Transmission Status: Received by [facility] Methimazole 10 mg PO DAILY #30 tab Transmission Status: Received by [facility] Methimazole [Tapazole] 5 mg PO Q8H #18 tab Transmission Status: Received by [facility] Primary Care Physician: Aaron Tidwell MD [Primary Care Provider] - Please follow up with your Primary Care Physician in: 1-2 weeks Please Follow Up With: Epifanio Childers MD When: 2 weeks Please Follow Up With: Aaron Tidwell MD Disposition: Home Minutes spent on discharge:: 35 Patient Condition:: Stable Medical Necessity - Tobacco Use Smoking Status: Never smoker Meaningful Use Info Meaningful Use Diagnoses (Choose all that apply): CHF - CHF ABBIE/ARB ordered at discharge?: No Reason ABBIE/ARB not ordered?: Worsening renal disease Documented LVEF (%): 60 <Frederic Lopez - Last Filed: 05/04/19 16:26> Discharge Date and Diagnosis - Secondary Discharge Diagnosis Chronic Problems (Last Updated 05/03/19 @ 16:11 by Kandy Gongora) Status post placement of implantable loop recorder (Chronic) CAD (coronary artery disease) (Chronic) Essential (primary) hypertension (Chronic) Secondary pulmonary arterial hypertension (Chronic) Atherosclerosis of coronary artery of [place] heart without angina pectoris (Chronic) Chronic atrial fibrillation (Chronic) Chronic kidney disease, stage 3 (Chronic) Acute on chronic diastolic (congestive) heart failure (Chronic) Anemia (Chronic) PAOD (peripheral 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 I have independently interviewed and examined the patient and reviewed pertinent history, examination findings, laboratory and plan of management. I have reviewed the note and agree with the documented findings with the few additional points. In brief, patient is admitted for shortness of breath secondary to acute on chronic diastolic heart failure due to A. fib with RVR. Chest x-ray shows vascular congestion. Patient diuresed well and shortness of breath has improved. On further labs, thyroid functions a history of hypothyroidism. Patient already on metoprolol. Heart rate is controlled but varies between 65 to 96/min. Tapazole 5 mg 3 times daily started for 7 days and change to maintenance dose of 10 mg daily. Metoprolol increased to 75 mg twice daily advised to further increase if heart rate is more than 100/min Patient has contraindication for anticoagulation secondary to GI bleed. Patient also has CKD stage III but creatinine is stable between 1.3-1.4. Other chronic comorbidities including hypertension, dyslipidemia, chronic anemia, peripheral arterial disease and pulmonary hypertension stable. Hypokalemia, K2.7. Potassium replaced. Repeat potassium 4.0. I have discussed my assessment with Pola BEGUM and orders have been reviewed. Discharge medication reconciliation done. Discharge follow-up instructions completed. Discharge process discussed with the patient and all questions were answered to patient's satisfaction. Total time spent, exact 35 minutes on discharge meds reconciliation, examination, review of imaging and blood test and discussion with the patient on follow-up instructions. Clinical Impression(s) from Imaging Studies Chest X-Ray 05/02/19 15:05 IMPRESSION: Cardiomegaly. Vascular congestion. Subjective: Seen and examined. Patient does not have any new complaint. Patient heart rate is controlled in the 80 to 90/min, irregular. Hypokalemia, 2.7 corrected. Repeat potassium 4.0. Patient started on methimazole 5 mg 3 times daily for 1 week and then switch to maintenance dose of 10 mg daily - Physical Exam General: Alert, Oriented x3, Cooperative HEENT: Atraumatic, PERRLA, EOMI, Normocephalic Neck: Supple, No JVD, Negative Carotid Bruits, - - Diffuse thyroid enlargement. No palpable nodule. Lower border palpable on deglutition Lungs: Clear to auscultation, Normal air movement, No rhonchi, No wheeze, No rales Cardiovascular: Regular rate, Normal S1, Normal S2, No murmurs, Irregular Rate Abdomen: Bowel Sounds Present, Soft, Non Tender, Non-Distended Extremities: No edema, Capillary Refill Less than 3 Seconds Skin: No rashes, No breakdown Musculoskeletal: No Tenderness to Palpation of Joints or Extremities, Arthritic Changes Neurological: Cranial nerves II-XII grossly intact, Deep Tendon Reflexes 2+/4 and Symmetrical, Neuro grossly intact Psych/Mental Status: Normal Affect, Appropriate Vital Signs Temp Pulse Resp BP Pulse Ox 97.4 F L 112 H 14 114/82 H 99 05/04/19 09:41 05/04/19 10:58 05/04/19 09:41 05/04/19 09:41 05/04/19 09:41 Oxygen Delivery Method Room Air Weight: 193 lb 12.581 oz Body Mass Index (BMI) 35.4 Finger Stick Blood Glucose 124 Intake and Output for Last 24 Hours 05/02/19 05/03/19 05/04/19 23:59 23:59 23:59 Intake Total 260 / 260 1222.6 / 1342.6 570 / 570 Output Total 1300 / 1900 1050 / 1050 Balance 260 / 260 -77.4 / -557.4 -480 / -480 Laboratory Tests Past 24 Hrs 05/04/19 05/04/19 06:33 12:55 Sodium 138 Potassium 2.7 L* 4.0 Chloride 98 Carbon Dioxide 28.0 Anion Gap 12 BUN 36 H Creatinine 1.56 H Estim Creat Clear Calc 25.78 Est GFR (MDRD) Af Amer 42 L Est GFR (MDRD) Non-Af 35 L BUN/Creatinine Ratio 23.1 H Glucose 149 H Calcium 9.5 Code Visit Inpatient E&M: 07697 Disch Hosp
--- NOTE | 2019-05-06 14:01 | CASEMGMT ---
ANNETTA CM DC PHONE CALL DC DATE: 05/04/19 DC Disposition: Home Diagnosis on Discharge: Afib, CHF LACE/STRATA: 08/28 Attempted call to phone. no answer, and message machine did not have name identifier. Je GOODEN RN ACM
== END 2019-05-04 13:52 | disposition home or self-care (01) | DRG 280 ==
LOC: ED 15:45 → PCU 17:23
PROVIDERS: Hospitalist; Physician Assistant; Admitting Provider Student in an Organized Health Care Education/Training Program; Emergency Provider Emergency Medicine; Family Provider Internal Medicine; PCP Internal Medicine; Visit Provider Internal Medicine
DX: I13.0 Hypertensive heart and chronic kidney disease with heart failure and stage 1 through stage 4 chronic kidney disease, or unspecified chronic kidney disease (principal); I50.33 Acute on chronic diastolic (congestive) heart failure; I21.4 Non-ST elevation (NSTEMI) myocardial infarction; I48.2 Chronic atrial fibrillation; N18.3 Chronic kidney disease, stage 3 (moderate); I25.10 Atherosclerotic heart disease of native coronary artery without angina pectoris; D86.9 Sarcoidosis, unspecified; D64.9 Anemia, unspecified; I27.21 Secondary pulmonary arterial hypertension; I73.9 Peripheral vascular disease, unspecified; E05.20 Thyrotoxicosis with toxic multinodular goiter without thyrotoxic crisis or storm; E78.5 Hyperlipidemia, unspecified; Z79.52 Long term (current) use of systemic steroids; Z95.5 Presence of coronary angioplasty implant and graft
CPT/HCPCS: 36415; 71045; 76536; 80048; 83735; 83880; 84132; 84439; 84443; 84481; 84484; 85025; 93005; 94640; 99285; J7030; A4216; J1940

== ENCOUNTER → 2019-05-08 10:15 | Outpatient (CLI) | payer MEDICARE, SELFPAY ==
[2019-04-08 09:33] VITALS: BMI 35.8
[2019-05-02 17:54] VITALS: BMI 35.4
[2019-05-08 12:03] LABS: BUN 49 mg/dL (7-18); Creatinine, Serum 1.74 mg/dL (0.55-1.02); EST Glomerular Filtration Rate 31 mL/min (>60); Glucose 137 mg/dL (74-106)
[2019-05-08 12:04] LABS: Albumin, Serum 4.1 g/dL (3.2-5.0); BUN/Creat Ratio 28.2 RATIO (10-20); Calcium,Total 9.8 mg/dL (8.5-10.1); Chloride 100 mmol/L (98-107); Est Glom Filt Rate - Afr Amer 37 mL/min (>60); Phosphorus 3.3 mg/dL (2.5-4.9); Potassium 3.4 mmol/L (3.5-5.1); Sodium Level 138 mmol/L (136-145)
[2019-05-08 12:15] LABS: Vitamin D,25 Hydroxy 39.8 ng/mL (29.95-100.01)
[2019-05-12 11:08] LABS: Vitamin D 1,25-Dihydroxy 23.9 pg/mL (19.9-79.3)
== END ==
PROVIDERS: Family Provider Internal Medicine; PCP Internal Medicine; Referring Provider Internal Medicine Nephrology; Visit Provider Internal Medicine Nephrology
DX: N18.3 Chronic kidney disease, stage 3 (moderate) (principal); E83.52 Hypercalcemia
CPT/HCPCS: 36415; 80069; 82306; 82652

== ENCOUNTER → 2019-06-10 09:01 | Outpatient (CLI) | payer MEDICARE, SELFPAY ==
[2019-04-08 09:33] VITALS: BMI 35.8
[2019-05-23 09:46] VITALS: BMI 34.0
[2019-06-10 10:45] LABS: Albumin, Serum 3.7 g/dL (3.2-5.0); BUN 25 mg/dL (7-18); BUN/Creat Ratio 18.8 RATIO (10-20); Calcium,Total 9.3 mg/dL (8.5-10.1); Chloride 100 mmol/L (98-107); Creatinine, Serum 1.33 mg/dL (0.55-1.02); EST Glomerular Filtration Rate 42 mL/min (>60); Est Glom Filt Rate - Afr Amer 50 mL/min (>60); Glucose 178 mg/dL (74-106); Phosphorus 3.5 mg/dL (2.5-4.9); Potassium 3.7 mmol/L (3.5-5.1); Sodium Level 138 mmol/L (136-145)
== END ==
PROVIDERS: Family Provider Internal Medicine; PCP Internal Medicine; Referring Provider Internal Medicine Nephrology; Visit Provider Internal Medicine Nephrology
DX: N18.3 Chronic kidney disease, stage 3 (moderate) (principal); N17.9 Acute kidney failure, unspecified
CPT/HCPCS: 36415; 80069

== ENCOUNTER → 2019-07-08 06:23 | Outpatient (CLI) | payer MEDICARE, SELFPAY ==
[2019-04-08 09:33] VITALS: BMI 35.8
[2019-05-23 09:46] VITALS: BMI 34.0
--- NOTE | 2019-07-08 06:31 | ECHOD_ITS ---
Reason For Study: HTN Procedure This was a 2D Doppler, Color Flow transthoracic echocardiogram. The exam was of adequate technical quality. Exam performed in department. Left Ventricle Normal LV size. Mid cavitary false tendon noted. Segmental dysfunction with 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 (see wall motion). The estimated ejection fraction is 55 %. Unable to assess diastolic dysfunction. Infero-Basal: Hypokinetic. Right Ventricle Normal RV size. Normal systolic function. Atria The left atrium is moderately enlarged. The right atrium is moderately enlarged. No doppler evidence for ASD. Mitral Valve There is mild to moderate mitral annular calcification. Extension of the mitral annular calcification onto the base of the posterior mitral valve leaflet. Mild diffuse mitral valve thickening. The mitral papillary muscle appears thickened and/or calcified. Mild (1+) mitral valve insufficiency. Tricuspid Valve Normal tricuspid valve. Moderate (2+) tricuspid valve insufficiency. Right ventricular systolic pressure estimated to be 57 mmHg. Aortic Valve Trisinus/trileaflet aortic valve. Normal aortic valve. Pulmonic Valve The pulmonic valve is not well visualized. Trivial pulmonic valve insufficiency. Great Vessels Mildly dilated aortic root. Pericardium/Pleural No pericardial effusion. MMode/2D Measurements & Calculations LVIDd: 4.2 cm IVSd: 0.85 cm Ao root diam: 4.0 cm LVIDs: 2.9 cm LVPWd: 0.95 cm RVDd: 3.4 cm FS: 30.8 % LAV(MOD-bp): 66.1 ml LA A4 area: 21.0 cm2 LA dimension(2D): 4.7 cm LAV(MOD-bp) Indexed: 34.9 ml/m2 LAV(MOD-sp2): 68.9 ml LAV(MOD-sp4): 63.8 ml RA A4 area: 18.9 cm2 Doppler Measurements & Calculations Ao V2 max: 97.3 cm/sec LV V1 max: 72.6 cm/sec TR max cathy: 349.0 cm/sec Ao max P.9 mmHg LV V1 max P.1 mmHg TR max P.7 mmHg Interpretation Summary Segmental dysfunction with 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 (see wall motion). The estimated ejection fraction is 55 %. Mid cavitary false tendon noted. The left atrium is moderately enlarged. The right atrium is moderately enlarged. There is mild to moderate mitral annular calcification. Extension of the mitral annular calcification onto the base of the posterior mitral valve leaflet. Mild diffuse mitral valve thickening. The mitral papillary muscle appears thickened and/or calcified. Mild (1+) mitral valve insufficiency. Moderate (2+) tricuspid valve insufficiency. Trivial pulmonic valve insufficiency. Mildly dilated aortic root. Right ventricular systolic pressure estimated to be 57 mmHg. Unable to assess diastolic dysfunction. Ordering Physician: ANNMARIE DAS Referring Physician: MARTHA DAS Performed By: Aurea Hu, YEE, RVT
--- NOTE | 2019-07-08 12:36 | STRESSREP_ITS ---
Stress Test Report Date: 07-08-19 Procedure: Pharmacologic stress nuclear imaging study Indications: Shortness of breath/dyspnea: Atrial fibrillation Consent: Per the patient Procedure: The patient underwent pharmacologic (Regadenoson) evaluation with a peak heart rate of 105 beats per minute (70 %predicted maximal heart rate) and a peak blood pressure of 118/72 mmHg. The baseline ECG demonstrated atrial fibrillation; premature ectopic complexes; nonspecific ST/T wave abnormality. The peak pharmacologic ECG demonstrated no obvious ECG changes. There were occasional premature ectopic complexes pretest, during infusion, and recovery. There was no complaint of chest discomfort during pharmacologic infusion or recovery. The examination was discontinued secondary to completion of protocol. Impression: 1. Pharmacologic (Regadenoson) evaluation 2. Peak pharmacologic ECG with no obvious ECG changes. 3. There were occasional premature ectopic complexes during pretest, confusion, and recovery. 4. Nuclear images pending Myocardial perfusion imaging study: Technique: The patient was injected with 15.0 millicuries of technetium 99m Cardiolite and subsequently rest SPECT Cardiolite nuclear imaging was obtained in the horizontal long, vertical long, and short axis views. The patient underwent pharmacologic (Regadenoson) evaluation with a peak heart rate of 105 beats per minute (70 % percent predicted maximal heart rate) and a peak blood pressure of 118/72 mmHg. The patient was injected with 44.0 millicuries of technetium 99m Cardiolite and subsequently stress SPECT Cardiolite nuclear imaging was obtained in the horizontal long, vertical long, and short axis views. A gated Cardiolite study at peak stress was obtained. Interpretation: Rest and stress SPECT Cardiolite nuclear imaging status post realignment, normalization, and attenuation correction demonstrate relative uniform tracer uptake and myocardial perfusion appearing within normal limits. There is end systolic thickening and brightening. The gated Cardiolite study demonstrates myocardial thickening and inward wall motion. The reported LVEF is 55 %. Impression: 1. Rest and stress SPECT Cardiolite nuclear imaging demonstrate relative uniform tracer uptake and myocardial perfusion appearing within normal limits. 2. The gated Cardiolite study reports an LVEF of 55 %. This note was generated with Leond[employer] musication software. It may contain incorrect words, spelling, and punctuation that were not noted in checking the note before signing.
== END ==
PROVIDERS: Family Provider Internal Medicine; PCP Internal Medicine
DX: I49.3 Ventricular premature depolarization (principal); G47.33 Obstructive sleep apnea (adult) (pediatric); I10 Essential (primary) hypertension; R06.02 Shortness of breath; I48.20 Chronic atrial fibrillation, unspecified
CPT/HCPCS: 78452; 93017; 93306; A9500; A4216; J2785

== ENCOUNTER → 2019-08-14 12:29 | Outpatient (CLI) | payer MEDICARE, SELFPAY ==
[2019-04-08 09:33] VITALS: BMI 35.8
[2019-05-23 09:46] VITALS: BMI 34.0
[2019-06-21 15:30] VITALS: BMI 34.0; BMI 35.8
--- NOTE | 2019-08-14 15:36 | CT_ITS ---
STUDY: CT BRAIN WITHOUT CONTRAST REASON FOR EXAM: Female, 73 years old. Headaches following a recent head trauma. Patient is on blood thinners. RADIATION DOSAGE (If Supplied By Facility): CTDIvol = ( 44.99 ) mGy, DLP = ( 796.11 ) mGycm TECHNIQUE: Transaxial CT imaging of the brain was performed without administration of intravenous contrast material. Individualized dose optimization techniques were used for this CT. COMPARISON: Comparison is made with prior study of December 01, 2017. FINDINGS: Normal soft tissue structures. Normal calvarium. There is mild cerebral atrophy with widening of the extra-axial spaces and ventricular dilatation. There are areas of decreased attenuation within the white matter tracts of the supratentorial brain, consistent with microvascular disease changes. There are small punctate calcifications of the basal ganglia which are seen in the aging brain as a normal variant. Normal brainstem. Normal cerebellum. There is no intracranial hemorrhage. There are no findings of an acute ischemic infarction. Atherosclerotic calcification of the cavernous portions of the internal carotid arteries bilaterally. Normal visualized paranasal sinuses. CT/Brain/Head without Contrast IMPRESSION: Chronic involutional changes of the brain. Electronically Signed: Carlos Cai, at 15:59 EST , Service support ,
--- NOTE | 2019-08-15 08:09 | PFT ---
INTRODUCTION: The patient is a 73-year-old female that presents for pulmonary function studies secondary to a diagnosis of dyspnea. Respiratory therapy reports good patient effort. Bronchodilators were used during testing. INTERPRETATION: Forced expiration spirometry demonstrates no evidence of a large airways obstructive ventilatory defect. There was no significant response to aerosolized bronchodilators. Spirograms are of fair quality and plateau normally. Body plethysmography was performed and reveals lung volumes to be within normal limits. Diffusing capacity by single breath CO is severely reduced at 37% of predicted. When compared to pulmonary function studies dated August 2018, there have been symmetric reductions in FVC and FEV1. Diffusing capacity has decreased by 27%. IMPRESSION: Spirometry and lung volumes show a nonspecific pattern with spirometry suggestive of restriction and a normal total lung capacity. Diffusing capacity is significantly reduced at 37% of predicted. There has been worsening in the patient's pulmonary function studies since August 2018, as noted above.
== END ==
PROVIDERS: Family Provider Internal Medicine; PCP Internal Medicine; Referring Provider Nurse Practitioner Acute Care; Visit Provider Nurse Practitioner Acute Care
DX: R06.09 Other forms of dyspnea (principal); R51 Headache
CPT/HCPCS: 70450; 94060; 94726; 94729

== ENCOUNTER → 2019-08-21 10:35 | Outpatient (CLI) | payer MEDICARE, SELFPAY ==
[2019-04-08 09:33] VITALS: BMI 35.8
[2019-05-23 09:46] VITALS: BMI 34.0
[2019-06-21 15:30] VITALS: BMI 35.8
[2019-08-14 14:01] VITALS: BMI 36.2
[2019-08-21 09:00] LABS: Albumin, Serum 3.9 g/dL (3.2-5.0); BUN 37 mg/dL (7-18); BUN/Creat Ratio 28.7 RATIO (10-20); Calcium,Total 9.5 mg/dL (8.5-10.1); Chloride 107 mmol/L (98-107); Creatinine, Serum 1.29 mg/dL (0.55-1.02); EST Glomerular Filtration Rate 43 mL/min (>60); Est Glom Filt Rate - Afr Amer 52 mL/min (>60); Glucose 123 mg/dL (74-106); Phosphorus 3.8 mg/dL (2.5-4.9); Potassium 3.9 mmol/L (3.5-5.1); Sodium Level 145 mmol/L (136-145)
[2019-08-21 10:57] VITALS: PULSE 108; PULSE 110; PULSE 69; PULSE 84; PULSE 86; PULSE 89; PULSE 94; PULSE 98; O2SAT 92; O2SAT 93; O2SAT 94; O2SAT 95; O2SAT 98
--- NOTE | 2019-08-21 15:07 | PCM.PSN.6M ---
PSN 6 Minute Walk Test - 6 Minute Walk Test 6 Minute Walk Test: 6 Minute Walk Test PSN:6-Minute Walk Test Start: 08/21/19 10:56 Freq: Status: Active Protocol: [id number].6MINW Document 08/21/19 10:57 SMB (Rec: 08/21/19 10:59 SMB [id number]) 6 Minute Walk Test Date Performed 08/21/19 Time Performed 10:42 Height 5 ft 2 in Weight: 89.811 kg Weight in Pounds 198.[address]: Coleen Soto Assistive device used: Cane Pre-test Oxygen Delivery Method Room Air Pulse Ox (%) 98 Pulse Rate (60-100 beats/min) 110 H Dyspnea Christiano Scale (0-10) 8 Exertion Christiano Scale (6-20) 11 1st minute Oxygen Delivery Method Room Air Pulse Ox (%) 94 Pulse Rate (60-100 beats/min) 89 2nd minute Oxygen Delivery Method Room Air Pulse Ox (%) 95 Pulse Rate (60-100 beats/min) 69 3rd minute Oxygen Delivery Method Room Air Pulse Ox (%) 93 Pulse Rate (60-100 beats/min) 108 H 4th minute Oxygen Delivery Method Room Air Pulse Ox (%) 92 Pulse Rate (60-100 beats/min) 84 5th minute Oxygen Delivery Method Room Air Pulse Ox (%) 93 Pulse Rate (60-100 beats/min) 94 6th minute Oxygen Delivery Method Room Air Pulse Ox (%) 92 Pulse Rate (60-100 beats/min) 86 Post-test Oxygen Delivery Method Room Air Pulse Ox (%) 95 Pulse Rate (60-100 beats/min) 98 Dyspnea Christiano Scale (0-10) 10 Exertion Christiano Scale (6-20) 13 Full Laps Walked 11 Partial Lap, Number of Tiles Walked 15 Total Distance Walked (ft) 664 - Interpretation Interpretation: The patient was able to ambulate 664 feet over the course of 6 minutes on room air with the assistance of a cane. The patient did experience significant desaturation from a baseline of 98% to as low as 92%. Some tachycardia was noted, but patient has a history of A. fib. These findings are consistent with a respiratory limitation exercise tolerance. - Recommendations Recommendations: No supplemental oxygen is indicated at this time. However, patient will need to be followed closely given level of desaturation.
== END ==
PROVIDERS: Internal Medicine Nephrology; Family Provider Internal Medicine; PCP Internal Medicine; Referring Provider Nurse Practitioner Acute Care; Visit Provider Nurse Practitioner Acute Care
DX: N18.3 Chronic kidney disease, stage 3 (moderate) (principal); N17.9 Acute kidney failure, unspecified; R06.09 Other forms of dyspnea
CPT/HCPCS: 36415; 80069; 94618

== ENCOUNTER → 2020-02-04 06:59 | Outpatient (CLI) | payer MEDICARE, SELFPAY ==
[2019-06-21 15:30] VITALS: BMI 35.8
[2019-08-14 14:01] VITALS: BMI 36.2
[2019-12-04 09:55] VITALS: BMI 36.2
[2020-02-04 08:06] LABS: Albumin, Serum 3.6 g/dL (3.2-5.0); BUN 24 mg/dL (7-18); BUN/Creat Ratio 17.8 RATIO (10-20); Chloride 103 mmol/L (98-107); Creatinine, Serum 1.35 mg/dL (0.55-1.02); EST Glomerular Filtration Rate 41 mL/min (>60); Est Glom Filt Rate - Afr Amer 49 mL/min (>60); Glucose 133 mg/dL (74-106); Phosphorus 3.8 mg/dL (2.5-4.9); Potassium 4.2 mmol/L (3.5-5.1); Sodium Level 140 mmol/L (136-145)
[2020-02-04 08:59] LABS: Vitamin D,25 Hydroxy 35.2 ng/mL
[2020-02-04 09:19] LABS: Protein:Creat Ratio 1322 mg/g CRE (0-200)
[2020-02-07 00:47] LABS: Vitamin D 1,25-Dihydroxy 33.8 pg/mL (19.9-79.3)
== END ==
PROVIDERS: Family Provider Internal Medicine; PCP Internal Medicine; Referring Provider Internal Medicine Nephrology; Visit Provider Internal Medicine Nephrology
DX: N18.3 Chronic kidney disease, stage 3 (moderate) (principal); E11.9 Type 2 diabetes mellitus without complications; E67.3 Hypervitaminosis D
CPT/HCPCS: 36415; 80069; 82306; 82570; 82652; 84156

== ENCOUNTER → 2020-03-11 12:18 | Outpatient (CLI) | payer MEDICARE, SELFPAY ==
[2019-06-21 15:30] VITALS: BMI 35.8
[2019-09-11 06:20] VITALS: BMI 36.2
[2019-12-04 09:55] VITALS: BMI 36.2
--- NOTE | 2020-03-12 10:31 | PFT ---
INTRODUCTION: The patient is a 74-year-old female that presents for pulmonary function studies secondary to a diagnosis of dyspnea. Respiratory therapy reports good patient effort. Bronchodilators were used during testing. INTERPRETATION: Forced expiration spirometry demonstrates no evidence of a large airways obstructive ventilatory defect. There was no significant response to aerosolized bronchodilators. Spirograms are of good quality and plateau normally. Body plethysmography was performed and reveals a decreased TLC to 2.7 L, 61% of predicted, indicative of a moderate restrictive ventilatory defect. The remainder of the lung volumes are symmetrically reduced. Diffusing capacity by single breath CO is reduced to 53% of predicted. IMPRESSION: Moderate restrictive ventilatory impairment with symmetric reduction in diffusing capacity.
== END ==
PROVIDERS: Family Provider Internal Medicine; PCP Internal Medicine; Referring Provider Nurse Practitioner Acute Care; Visit Provider Nurse Practitioner Acute Care
DX: G47.33 Obstructive sleep apnea (adult) (pediatric) (principal); D86.9 Sarcoidosis, unspecified; I27.21 Secondary pulmonary arterial hypertension
CPT/HCPCS: 94060; 94726; 94729

== ENCOUNTER → 2020-03-30 08:46 | Outpatient (CLI) | payer MEDICARE, SELFPAY ==
[2019-06-21 15:30] VITALS: BMI 35.8
[2020-03-18 09:59] VITALS: BMI 36.2
--- NOTE | 2020-03-30 08:48 | VDUE_ITS ---
Reason For Study: Swelling Right Proximal Left Proximal Right jugular vein is spontaneous, widely Left subclavian vein is spontaneous, widely patent, phasic, with no intraluminal patent, phasic, with no intraluminal echogenicity noted. echogenicity noted. Right subclavian vein is spontaneous, widely patent, phasic, with no intraluminal echogenicity noted. Right Lower Arm Right radial vein is compressible. Right ulnar vein is compressible. Right Arm Right axillary vein is spontaneous, patent, phasic, competent, compressible and demonstrates augmentation. Right brachial vein is compressible. Right cephalic vein is compressible. Right basilic vein is compressible. Interpretation Summary Deep veins of the right upper extremity are patent and compressible segmentally. There is no evidence of deep vein thrombosis. The superficial veins of the right upper extremity, the basilic and cephalic veins, are patent and compressible. There is no evidence of right upper extremity superficial thrombophlebitis involving the veins imaged. Ordering Physician: Coleen Soto Referring Physician: Aaron Tidwell Performed By: Marilee Breaux, YEE, RVT ?
== END ==
PROVIDERS: PCP Internal Medicine; Referring Provider Nurse Practitioner Acute Care; Visit Provider Nurse Practitioner Acute Care
DX: M79.89 Other specified soft tissue disorders (principal)
CPT/HCPCS: 93971

== ENCOUNTER → 2020-04-15 07:52 | Outpatient (CLI) | payer MEDICARE, SELFPAY ==
[2019-06-21 15:30] VITALS: BMI 35.8
[2020-04-08 09:38] VITALS: BMI 36.2
[2020-04-08 12:09] LABS: Absolute Lymphocyte Count 1.21 X10^3/uL (0.83-4.51); Absolute Neutrophil Count 12.5 X10^3/uL (2.0-7.7); Basophil# 0.04 X10^3/uL; Basophil% 0.3 % (0-1); Eosinophil# 0.05 X10^3/uL; Eosinophils% 0.3 % (0-5); Hematocrit 45.4 % (37-47); Hemoglobin 14.7 g/dL (12.0-15.0); Lymphocyte # 1.21 X10^3/ul (4.0); Lymphocyte % 8.2 % (19-41); Mean Corp Hgb Conc 32.4 g/dL (32-36); Mean Corpuscular Hgb 30.8 pg (27.0-32.0); Mean Platelet Vol. 11.6 fl (6.2-12.0); Monocyte# 0.96 X10^3/uL; Monocyte% 6.5 % (0-10); NRBC Flagged by Analyzer 0 % (0-5); Neutrophil # 12.45 X10^3/uL (2.7-7.7); Platelet Count 193 K/mm3 (150-450); RBC Distribution Width CV 15.4 % (11.6-14.6); RBC Distribution Width SD 53.8 fl (35.1-43.9); Red Blood Count 4.78 M/mm3 (4.2-5.4); White Blood Count 14.8 K/mm3 (4.4-11.0)
[2020-04-08 12:37] LABS: BNP,B-Type NATRIURETIC PEPTIDE 337.8 pg/mL (0-100)
[2020-04-08 12:42] LABS: ALB/GLOB Ratio 0.9 RATIO (0.9-2.4); AST(SGOT) 39 U/L (15-37); Alanine Aminotransfer ALT/SGPT 45 U/L (13-56); Albumin, Serum 3.8 g/dL (3.2-5.0); Alkaline Phosphatase 84 U/L (45-117); Anion Gap 8 (5-15); BUN 27 mg/dL (7-18); BUN/Creat Ratio 18.8 RATIO (10-20); Calcium,Total 9.2 mg/dL (8.5-10.1); Chloride 99 mmol/L (98-107); Cholesterol 102 mg/dL (200); Creatinine, Serum 1.44 mg/dL (0.55-1.02); EST Glomerular Filtration Rate 38 mL/min (>60); Est Glom Filt Rate - Afr Amer 46 mL/min (>60); Globulin 4.3 g/dL (2.2-4.2); Glucose 187 mg/dL (74-106); High Density Lipoprotein 55 mg/dL; Magnesium 1.9 mg/dL (1.6-2.6); Potassium 3.5 mmol/L (3.5-5.1); Protein, Total 8.1 g/dL (6.4-8.2); Sodium Level 139 mmol/L (136-145); Triglycerides 108 mg/dL
[2020-04-08 12:43] LABS: Free T3 2.6 pg/mL (2.18-3.98); T4 Free Direct 0.59 ng/dL (0.76-1.46); Very Low Density Lipoprotein 22 mg/dL (5-40)
--- NOTE | 2020-04-15 07:53 | US_ITS ---
STUDY: THYROID ULTRASOUND REASON FOR EXAM: Female, 74 years old. Abnormal thyroid function tests TECHNIQUE: Ultrasound evaluation of the thyroid was performed with real-time and static elias-scale imaging. COMPARISON: 05/03/2019 FINDINGS: RIGHT LOBE: The right lobe of the thyroid gland measures 5.4 x 1.9 x 2.0 cm. There is a heterogeneous echotexture. 2 simple cysts are noted, larger measures 7 mm, smaller 6 mm. LEFT LOBE: The left lobe of the thyroid gland measures 5.5 x 2.0 x 1.7 cm. There is a heterogeneous echotexture. There is a new hyperechoic solid 0.9 x 1.0 x 0.9 cm nodule. ISTHMUS: The isthmus measures 4 mm. The regional lymph nodes are normal. US/Thyroid IMPRESSION: Enlarged heterogeneous thyroid gland with stable simple cysts noted in the right lobe and a new hyperechoic 1.0 cm nodule in the left lobe. Six-month follow-up recommended to assure stability. If there is strong clinical concern about this new nodule, thyroid uptake study could be performed to assess uptake characteristics. Electronically Signed: Pritesh Browning MD at 10:14 EDT , Service support ,
[2020-04-15 09:07] LABS: Anion Gap 5 (5-15); BUN 34 mg/dL (7-18); BUN/Creat Ratio 21.8 RATIO (10-20); Calcium,Total 9.1 mg/dL (8.5-10.1); Chloride 103 mmol/L (98-107); Creatinine, Serum 1.56 mg/dL (0.55-1.02); EST Glomerular Filtration Rate 35 mL/min (>60); Est Glom Filt Rate - Afr Amer 42 mL/min (>60); Glucose 144 mg/dL (74-106); Potassium 3.8 mmol/L (3.5-5.1); Sodium Level 139 mmol/L (136-145)
== END ==
PROVIDERS: PCP Internal Medicine; Referring Provider Physician Assistant Medical; Visit Provider Physician Assistant Medical
DX: I48.20 Chronic atrial fibrillation, unspecified (principal); I11.0 Hypertensive heart disease with heart failure; I50.33 Acute on chronic diastolic (congestive) heart failure; E04.1 Nontoxic single thyroid nodule; R06.00 Dyspnea, unspecified; M79.89 Other specified soft tissue disorders
CPT/HCPCS: 36415; 76536; 80048; 80053; 80061; 83735; 83880; 84439; 84443; 84481; 85025

== ENCOUNTER 2020-04-28 07:10 | Inpatient (IN) | payer MEDICARE, SELFPAY ==
[2019-06-21 15:30] VITALS: BMI 35.8
[2020-04-08 09:38] VITALS: BMI 36.2
[2020-04-28] VITALS (15 sets, daily range): BP systolic 99–125; BP diastolic 61–81; PULSE 79–121; RESP 16–25; TEMP 36.1–37.4; O2SAT 94–100; BMI 36.6; BMI 36.2
--- NOTE | 2020-04-28 07:43 | EKG12_ITS ---
Test Reason : WEAKNESS Blood Pressure : / mmHG Vent. Rate : 116 BPM Atrial Rate : 288 BPM P-R Int : 000 ms QRS Dur : 080 ms QT Int : 314 ms P-R-T Axes : 000 086 234 degrees QTc Int : 436 ms Atrial fibrillation with rapid ventricular response Nonspecific ST & T wave abnormality Abnormal ECG Confirmed by RUPESH BACON, ENEIDA ([id number]), make up editor CONRADO JOHNSON ([id number]) on 05/04/2020 9:11:54 AM Referred By: DC Confirmed By:ENEIDA GODDARD MD
--- NOTE | 2020-04-28 08:37 | RAD_ITS ---
STUDY: X-RAY CHEST REASON FOR EXAM: Female, 74 years old. Unsteady and weak since epidural duly , hx of chronic afib since 2016, pt states oblation to front and back of heart TECHNIQUE: Single AP portable view of the chest. COMPARISON: Comparison is made with prior study dated 05/02/2019. FINDINGS: EKG like transversely. Stable mild degree of increased markings at the lung bases suggestive of scarring. There is no demonstrated pleural abnormality. There is moderate cardiac enlargement. A loop recording device is once again seen overlying the left upper quadrant. Normal mediastinum and kenn. Normal visualized pulmonary arteries. There is atherosclerotic calcification of the aortic arch with tortuosity. Normal visualized thoracic spine. There is degenerative osteoarthritis of the bilateral shoulders. Surgical clips are seen in the right upper quadrant most likely secondary to prior cholecystectomy. RAD/Chest 1 View (Portable) IMPRESSION: Cardiomegaly. No acute abnormality is seen. Electronically Signed: Carlos Cai, at 9:00 EDT , Service support ,
[2020-04-28 08:39] LABS: Absolute Lymphocyte Count 0.58 X10^3/uL (0.83-4.51); Absolute Neutrophil Count 11.8 X10^3/uL (2.0-7.7); Basophil# 0.04 X10^3/uL; Basophil% 0.3 % (0-1); Hematocrit 49.4 % (37-47); Hemoglobin 16.7 g/dL (12.0-15.0); Lymphocyte # 0.58 X10^3/ul (4.0); Lymphocyte % 4.4 % (19-41); Mean Corp Hgb Conc 33.8 g/dL (32-36); Mean Corpuscular Hgb 31.5 pg (27.0-32.0); Mean Platelet Vol. 10.9 fl (6.2-12.0); Monocyte# 0.75 X10^3/uL; Monocyte% 5.6 % (0-10); NRBC Flagged by Analyzer 0 % (0-5); Neutrophil # 11.79 X10^3/uL (2.7-7.7); Neutrophil % 88.4 % (47-70); POSITIVE DIFFERENTIAL YES; Platelet Count 100 K/mm3 (150-450); RBC Distribution Width CV 16.1 % (11.6-14.6); RBC Distribution Width SD 53.4 fl (35.1-43.9); Red Blood Count 5.31 M/mm3 (4.2-5.4); White Blood Count 13.3 K/mm3 (4.4-11.0)
[2020-04-28 08:40] LABS: Differential Indicated SCAN CRITERIA MET
[2020-04-28 08:48] LABS: International Normalized Ratio 1.1; Partial Thromboplast Time 25.9 Seconds (24.1-36.2); Prothrombin Time (Protime)PT. 13.9 SECONDS (11.7-14.9)
[2020-04-28 09:01] LABS: Platelet Estimate SLT DEC (ADEQ)
[2020-04-28 09:03] LABS: Lactic Acid 1.3 mmol/L (0.4-1.9)
[2020-04-28 09:05] LABS: ALB/GLOB Ratio 0.8 RATIO (0.9-2.4); AST(SGOT) 43 U/L (15-37); Alanine Aminotransfer ALT/SGPT 50 U/L (13-56); Albumin, Serum 3.4 g/dL (3.2-5.0); Alkaline Phosphatase 77 U/L (45-117); Anion Gap 8 (5-15); BUN 34 mg/dL (7-18); BUN/Creat Ratio 23.9 RATIO (10-20); Calcium,Total 8.8 mg/dL (8.5-10.1); Chloride 103 mmol/L (98-107); Creatinine, Serum 1.42 mg/dL (0.55-1.02); EST Glomerular Filtration Rate 39 mL/min (>60); Est Glom Filt Rate - Afr Amer 47 mL/min (>60); Estimated Creatinine Clearance 27.91 ml/min; Glucose 161 mg/dL (74-106); Potassium 3.8 mmol/L (3.5-5.1); Protein, Total 7.4 g/dL (6.4-8.2); Sodium Level 134 mmol/L (136-145); Thyroid Stim Hormone (TSH) 1.47 uIU/mL (0.358-3.74)
[2020-04-28 09:48] LABS: Color, Urine Yellow (Yellow); Glucose, Dipstick Normal (Normal); Ketone-Dipstick 5 mg/dl (Negative); Leukocyte Esterase-Dipstick 500 /ul (Negative); Nitrite-Dipstick Positive (Negative); Occult Blood-Urine 50 /ul (Negative); Protein-Dipstick 30 mg/dl (Negative); Specific Gravity, Urine 1.015 (1.002-1.030); Urine Bilirubin Dipstick Negative (Negative); Urine Clarity Sl. Cloudy (Clear); Urine Urobilinogen 1 mg/dl (Normal)
[2020-04-28 09:55] LABS: Bacteria 2+ /hpf (None Seen); Mucous, Urine RARE /hpf (<or=2+); Red Blood Cells-Urine 0-5 SEEN /hpf (0-5); Squamous Epithelial Cells - UA 5-10 SEEN /hpf (5-10); White Blood Cells 5-10 SEEN /hpf (0-5)
[2020-04-28] MEDS: Ciprofloxacin 400 MG/200 ML BAG 200 MG IV ×2 (10:28→21:35)
--- NOTE | 2020-04-28 10:35 | ED.VISSUMM ---
- ER Visit Summary Date of Service: 04/28/20 Chief Complaint: Weakness History of Present Illness: The patient is a 74 F with generalized weakness for several days. She is not sure what brought this on. She recently stopped taking her Synthroid medication under her doctors care. She is awaiting repeat thyroid testing next week. She also discontinued her Plavix. She takes aspirin and Plavix but no other anticoagulation for atrial fibrillation. She has a history of chronic atrial fibrillation. Denies any chest pain, shortness of breath. Denies fevers, cough, or infectious symptoms. Denies abdominal pain or GI symptoms. Denies any urinary symptoms. Physical Examination: Afebrile and vital signs unremarkable except for heart rate of 116 and a respiratory rate of 25. Patient exhibits psychomotor slowing but is in no acute distress. She is alert and oriented. Heart is irregularly irregular. Lungs are clear. Abdomen soft and nontender. Extremities nontender. Skin slightly pale. Test Results: EKG showed A. fib at a rate of 116. White count 13.3, hemoglobin 16.7, platelets 100. Sodium 134, glucose 160, BUN 34, creatinine 1.42, total bilirubin 1.9, AST 43. Coags normal. Urinalysis shows limited leukocyte esterase, nitrites, 5-10 white cells. Cultures pending. Lactate normal. Troponin normal. Chest x-ray shows cardiomegaly and chronic changes. Emergency Department Course and Treatment: Patient was placed on a monitor. Treated with IV fluids. She remained stable in atrial fibrillation. Rate was around 100 to the 1 teens. Work-up as above. She has a UTI with multiple antibiotic allergies. Cultures are pending. She was treated with Cipro. She meets criteria for sepsis. TSH was normal. Patient's epidural site appears unremarkable. No redness, swelling, tenderness, warmth, or any other abnormalities. No subjective pain at that site. Patient has generalized weakness and multiple ongoing medical issues. She was treated with antibiotics and will be admitted to the hospitalist for further care. Treatment Plan: As above Disposition: Admission Impression: Atrial fibrillation, UTI, sepsis, generalized weakness, thrombocytopenia This note was generated with [employer] dictation software. It may contain incorrect words, spelling, and punctuation that were not noted in review of the chart prior to signing ED Disposition - Plan for ED Patient: Referrals: Aaron Tidwell MD [Primary Care Provider] -
--- NOTE | 2020-04-28 10:37 | NURSING ---
DR ZULUAGA FOR DR PEÑA
--- NOTE | 2020-04-28 10:37 | NURSING ---
PCU [place] AFIB, UTI, SEPSIS
--- NOTE | 2020-04-28 11:58 | HP.PCM_ITS ---
History of Present Illness Date of Admission: 04/28/20 Chief Complaint: Weakness The patient is a 74 year old F with PMH as below presents with generalized weakness for several weeks prior to admission, ever since she had an injection by pain management. She gets these fairly frequently for spinal stenosis she denies any worsening back pain or neurological issues with numbness, tingling, loss of bowel and bladder function. She recently saw her daughter who took her off of her Synthroid medication and was going to test her this coming week. In the ER her TSH was normal. She denies any chest pain, shortness of breath, lightheadedness or fevers at home. She has not had any symptoms either however on admission she was found to have a UTI based on UA. Because of this she was admitted to the hospital for possible sepsis secondary to a urinary tract infection. Her heart rate was elevated but this is also likely secondary to her chronic A. fib, and she was tachypneic. She she is afebrile, with a leukocytosis of 13.3, lactate is normal. Past Medical History Past Medical History (Chronic Problems): Chronic Problems (Last Reviewed 03/18/20 @ 10:28 by Coleen Soto NP-C) Sinus pause (Chronic) Sick sinus syndrome (Chronic) Status post placement of implantable loop recorder (Chronic) Type 2 diabetes mellitus (Chronic) Lung nodule (Chronic) 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) Venous stasis ulcer of left lower leg with edema of left lower leg (Chronic) Venous stasis ulcer of right lower leg with edema of right lower leg (Chronic) Arthralgia (Chronic) Myalgia (Chronic) Mass of soft tissue of left lower extremity (Chronic) left inner upper thigh - ? calciphylaxis vs. erythema nodosum vs. dermatomyositis vs. panniculitis Mass of soft tissue of right lower extremity (Chronic) right inner upper thigh - ? calciphylaxis vs. erythema nodosum vs. dermatomyositis vs. panniculitis LYN (obstructive sleep apnea) (Chronic) GERD (gastroesophageal reflux disease) (Chronic) Calcinosis (Chronic) Recurrent falls (Chronic) PAOD (peripheral arterial occlusive disease) (Chronic) Depression (Chronic) Neuropathic pain (Chronic) Ulcer of left lower extremity with fat layer exposed (Chronic) Calciphylaxis (Chronic) Venous insufficiency (chronic) (peripheral) (Chronic) Sarcoidosis (Chronic) MRSA (methicillin resistant staph aureus) culture positive (Chronic) Bradycardia by electrocardiogram (Chronic) Thyroid nodule (Chronic) History of ST elevation myocardial infarction (STEMI) (Chronic 04/07/19) 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) Essential (primary) hypertension (Chronic) Secondary pulmonary arterial hypertension (Chronic) Atherosclerosis of coronary artery of circle heart without angina pectoris (Chronic) Chronic atrial fibrillation (Chronic) Chronic kidney disease, stage 3 (Chronic) Acute on chronic diastolic (congestive) heart failure (Chronic) Anemia (Chronic) 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) Medical History: Medical History (Last Reviewed 03/18/20 @ 10:28 by Coleen Soto NP-C) Sinus pause (Chronic) I45.5 Sick sinus syndrome (Chronic) I49.5 Status post placement of implantable loop recorder (Chronic) Z95.818 GI bleeding (Resolved) K92.2 Type 2 diabetes mellitus (Chronic) E11.9 Lung nodule (Chronic) R91.1 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) M48.061, M54.16 Venous stasis ulcer of left lower leg with edema of left lower leg (Chronic) I83.892, I83.028, R60.9 Venous stasis ulcer of right lower leg with edema of right lower leg (Chronic) I83.891, I83.018, R60.9 Arthralgia (Chronic) M25.50 Myalgia (Chronic) M79.1 Mass of soft tissue of left lower extremity (Chronic) R22.42 left inner upper thigh - ? calciphylaxis vs. erythema nodosum vs. dermatomyositis vs. panniculitis Mass of soft tissue of right lower extremity (Chronic) R22.41 right inner upper thigh - ? calciphylaxis vs. erythema nodosum vs. dermatomyositis vs. panniculitis Hypersomnia (Resolved) G47.10 LYN (obstructive sleep apnea) (Chronic) G47.33 GERD (gastroesophageal reflux disease) (Chronic) K21.9 Calcinosis (Chronic) E83.59 Recurrent falls (Chronic) R29.6 PAOD (peripheral arterial occlusive disease) (Chronic) I77.9 Depression (Chronic) F32.9 Neuropathic pain (Chronic) M79.2 Ulcer of right lower extremity with fat layer exposed (Resolved) L97.912 Ulcer of left lower extremity with fat layer exposed (Chronic) L97.922 Calciphylaxis (Chronic) E83.59 Venous insufficiency (chronic) (peripheral) (Chronic) I87.2 Sarcoidosis (Chronic) D86.9 MRSA (methicillin resistant staph aureus) culture positive (Chronic) Z22.322 Cardiogenic shock (Resolved) Onset Date: 04/07/19 R57.0 Bradycardia by electrocardiogram (Chronic) R00.1 Thyroid nodule (Chronic) E04.1 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) E05.[address] elevation myocardial infarction (STEMI) (Chronic) Onset Date: 04/07/19 I25.2 Old inferior wall myocardial infarction (Chronic) Onset Date: 04/07/19 I25.2 Essential (primary) hypertension (Chronic) I10 Secondary pulmonary arterial hypertension (Chronic) I27.21 Atherosclerosis of coronary artery of circle heart without angina pectoris (C hronic) I25.10 Chronic atrial fibrillation (Chronic) I48.2 Junctional rhythm (Resolved) I49.8 Chronic kidney disease, stage 3 (Chronic) N18.3 Acute on chronic diastolic (congestive) heart failure (Chronic) I50.33 Anemia (Chronic) D64.9 Chest pain (Resolved) R07.[address] of chest (Inactive) R93.8 Acute inferior myocardial infarction (Inactive) Onset Date: 04/07/19 I21.19 Cellulitis (Inactive) L03.90 Coumadin-induced coagulopathy (Inactive) Delayed wound healing T14.8XXD Dyspnea on exertion (Inactive) R06.09 Edema, lower extremity (Inactive) R60.0 Generalized weakness (Inactive) Hypokalemia (Inactive) E87.6 Localized edema (Inactive) R60.0 Pain in left leg (Inactive) M79.605 Pain in right leg (Inactive) M79.604 Shortness of breath (Inactive) R06.02 Symptomatic anemia (Inactive) D64.9 Weakness (Inactive) R53.1 Allergies amlodipine besylate [From Norvasc] Allergy (Verified 04/28/20 08:09) Unknown ceftriaxone Allergy (Verified 04/28/20 08:09) Rash doxazosin [From Cardura] Allergy (Verified 04/28/20 08:09) Unknown doxazosin mesylate [From Cardura] Allergy (Verified 04/28/20 08:09) Other VEINS TURNED RED doxycycline Allergy (Verified 04/28/20 08:09) Unknown Pt doesn't remember enalapril maleate [From Vasotec] Allergy (Verified 04/28/20 08:09) Rash enalaprilat dihydrate [From Vasotec] Allergy (Verified 04/28/20 08:09) Rash hydroxyzine HCl [From Vistaril] Allergy (Verified 04/28/20 08:09) Rash hydroxyzine pamoate [From Vistaril] Allergy (Verified 04/28/20 08:09) Rash meperidine HCl [From Demerol] Allergy (Verified 04/28/20 08:09) Rash Sulfa (Sulfonamide Antibiotics) Allergy (Verified 04/28/20 08:09) Hives sulfamethoxazole [From Bactrim] Allergy (Verified 04/28/20 08:09) Hives trimethoprim [From Bactrim] Allergy (Verified 04/28/20 08:09) Hives losartan Adverse Reaction (Unknown, Verified 04/28/20 08:09) Unknown Home Medications: Ambulatory Orders Medication Instructions Recorded prednisone 10 mg tablet 5 mg PO DAILY tab 10/08/18 Aspirin E.C. [Ecotrin] 81 mg PO DAILY@0800 #30 tab 04/09/19 Atorvastatin Calcium [Lipitor] 40 mg PO QHS #30 tab 04/09/19 metoprolol tartrate 50 mg tablet 50 mg PO BID 12/04/19 spironolactone 25 mg tablet 25 mg PO DAILY #30 tab 04/08/20 furosemide 40 mg tablet 40 mg PO DAILY #180 tab 04/15/20 potassium chloride 20 mEq 20 meq PO DAILY #60 tab 04/15/20 tablet,extended release Surgical History: Surgical History (Last Reviewed 03/18/20 @ 10:28 by Coleen Soto NP-Sage) History of cardiac radiofrequency ablation (RFA) (Resolved) Onset Date: 01/09/17 Z98.890 Convergent hybrid Lt Atrial Ablation 01/12/17 S/P laparoscopic cholecystectomy (Resolved) Z90.49 h/o left foot surgery (Resolved) S/P PICC central line placement (Resolved) Z95.828 Status post laparoscopic [place] fundoplication (Resolved) Z98.890 History of patent ductus arteriosus (Resolved) Z87.74 closure History of hysterectomy (Resolved) Z90.710 History of removal of skin mole (Resolved) Z98.890, Z87.2 History of lymph node excision (Resolved) Z98.890 x 2 H/O skin graft (Resolved) Z98.890 08/01/18 @ [facility] History of loop recorder (Resolved) Onset Date: 01/09/17 Z98.890 History of coronary artery stent placement (Resolved) Onset Date: 04/07/19 Z95.5 PCI-thrombectomy and BMS- Distal RCA w/ 3.0 x 16 mm Rebel Stent 04/07/19 Surgical History: cataract, cholecystectomy, hysterectomy, - Psychiatric History: Depression PATHOLOGY MANAGER History: No pertinent PATHOLOGY MANAGER history Smoking Status: Never smoker Tobacco Use: Non-smoker Alcohol: None Drugs: None - *Family History Maternal Family History: Family History (Last Reviewed 03/18/20 @ 10:28 by NICOLE Thurman) Mother Diabetes Brother Diabetes Myocardial infarction Cancer Son Hypertension Daughter Arthritis Diabetes Hypertension Brother Cancer History Items: No pertinent history Paternal Family History: Family History (Last Reviewed 03/18/20 @ 10:28 by NICOLE Thurman) Mother Diabetes Brother Diabetes Myocardial infarction Cancer Son Hypertension Daughter Arthritis Diabetes Hypertension Brother Cancer History Items: No pertinent history Review of Systems Constitutional: Reports: Weakness, Fatigue. Denies: Chills, Fever HEENT: Denies: Head Aches, Sinus Congestion, Sinus Drainage Cardiovascular: Denies: Chest Pain, Palpitations Respiratory: Denies: Cough, Shortness of breath at rest, Sputum production Gastrointestinal: Denies: Abdominal Pain, Nausea, Vomiting Genitourinary: Denies: Dysuria Musculoskeletal: Denies: Joint Pain, Joint Tenderness Skin: Denies: Rash, Wounds Neurological: Denies: Numbness, Tingling, Focal weakness Psychiatric: Denies: Anxiety, Depression Hematologic/ Lymphatic: Denies: Easy Bruising, Easy Bleeding VTE Information - Inpt Only VTE Present on Admission: No - Physical Exam Vitals/I&O's: Vital Signs Temp Pulse Resp BP Pulse Ox 98.1 F 79 16 106/75 100 04/28/20 11:40 04/28/20 11:40 04/28/20 11:40 04/28/20 11:40 04/28/20 11:40 Oxygen Flow Rate (L/min) 2 Oxygen Delivery Method Nasal Cannula Weight: 198 lb 1.6 oz Body Mass Index (BMI) 36.2 Finger Stick Blood Glucose 124 Intake and Output for Last 24 Hours 04/26/20 04/27/20 04/28/20 23:59 23:59 23:59 Intake Total 700 / 700 Balance 700 / 700 General: Alert, Oriented x3, Cooperative, No apparent distress HEENT: Atraumatic, PERRLA, EOMI, Normocephalic Oral: Moist Mucosa Neck: Supple, No JVD Lungs: Clear to auscultation, Normal air movement, No rhonchi, No wheeze, No rales, Diminished Cardiovascular: Regular rate, Regular Rhythm, Normal S1, Normal S2, No murmurs Abdomen: Soft, Non Tender, Non-Distended, No Hepato-splenomegaly Extremities: No edema, Capillary Refill Less than 3 Seconds Skin: No rashes, No breakdown Neurological: Neuro grossly intact, Sensory exam intact to light touch and pain Psych/Mental Status: Normal Affect, Appropriate Laboratory Results 04/28/20 08:20: WBC 13.3 H, RBC 5.31, Hgb 16.7 H, Hct 49.4 H, MCV 93.0, MCH 31.5, MCHC 33.8, RDW Std Deviation 53.4 H, RDW Coeff of Heike 16.1 H, Plt Count 100 L, MPV 10.9, Immature Gran % (Auto) 1.300 H, Neut % (Auto) 88.4 H, Lymph % (Auto) 4.4 L, Keith % (Auto) 5.6, Eos % (Auto) 0.0, Baso % (Auto) 0.3, Absolute Neuts (auto) 11.8 H, Absolute Lymphs (auto) 0.58 L, Nucleated RBC % 0, Platelet Estimate SLT 04/28/20 08:20: PT 13.9, INR 1.1, APTT 25.9 04/28/20 08:20: Sodium 134 L, Potassium 3.8, Chloride 103, Carbon Dioxide 23.0, Anion Gap 8, BUN 34 H, Creatinine 1.42 H, Estim Creat Clear Calc 27.91, Est GFR (MDRD) Af Amer 47 L, Est GFR (MDRD) Non-Af 39 L, BUN/Creatinine Ratio 23.9 H, Glucose 161 H, Calcium 8.8, Total Bilirubin 1.90 H, AST 43 H, ALT 50, Alkaline Phosphatase 77, Troponin I 0.018, Total Protein 7.4, Albumin 3.4, Globulin 4.0, Albumin/Globulin Ratio 0.8 L, TSH 1.47 04/28/20 08:20: Lactic Acid 1.3 04/28/20 09:35: Urine Color Yellow, Urine Clarity Sl. Cloudy, Urine pH 5.0, Ur Specific [place] 1.015, Urine Protein 30 H, Urine Glucose (UA) Normal, Urine Ketones 5 H, Urine Occult Blood 50 H, Urine Nitrite Positive H, Urine Bilirubin Negative, Urine Urobilinogen 1 H, Ur Leukocyte Esterase 500 H, Urine RBC 0-5 SEEN, Urine WBC 5-10 SEEN, Ur Squamous Epith Cells 5-10 SEEN, Urine Bacteria 2+, Urine Mucus RARE Current Medications Acetaminophen (Tylenol) 650 mg PO Q6H PRN PRN PRN Reason: Pain Score 1-10/Temp > 100.7 F Heparin Sodium (Porcine) (Heparin Na) 5,000 unit SC Q8 BULMARO Sodium Chloride () 250 mls @ 15 mls/hr IV .[id number] PRN PRN Reason: Saline Flush Sodium Chloride () 250 mls @ 15 mls/hr IV .[id number] PRN PRN Reason: Additional IVPB Infusion Ciprofloxacin (Cipro) 400 mg in 200 mls @ 200 mls/hr IV Q12 BULMARO Melatonin (Melatonin) 3 mg PO QHS PRN PRN PRN Reason: INSOMNIA Nutritional Formula (Lactose Free) (Glucerna Shake) 120 ml PO TIDCM BULMARO Sodium Chloride () 10 - 40 ml IV UD PRN PRN Reason: SALINE FLUSH Assessment/Plan All Active Problems (Last Reviewed 03/18/20 @ 10:28 by Coleen Soto NP-C) Swelling of right upper extremity (Acute) GI bleeding (Resolved) Hypersomnia (Resolved) History of cardiac radiofrequency ablation (RFA) (Resolved 01/09/17) Ulcer of right lower extremity with fat layer exposed (Resolved) S/P laparoscopic cholecystectomy (Resolved) h/o left foot surgery (Resolved) S/P PICC central line placement (Resolved) Status post laparoscopic [place] fundoplication (Resolved) History of patent ductus arteriosus (Resolved) History of hysterectomy (Resolved) History of removal of skin mole (Resolved) History of lymph node excision (Resolved) H/O skin graft (Resolved) Cardiogenic shock (Resolved 04/07/19) 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 Sepsis secondary to UTI causing her generalized weakness -Her previous cultures grew Klebsiella and the Citrobacter that was resistant to Ancef, and she is allergic to Rocephin -Continue with Cipro IV twice daily -Continue with PT and OT for evaluation -Blood and urine cultures are pending 2. Chronic A. fib and sick sinus syndrome status post radiofrequency ablation/chronic diastolic CHF/CAD status post stent -Continue with aspirin, she is not on any anticoagulation per cardiology -Continue with her Lipitor, but will hold her Lasix as she is on IV fluids for dehydration -Continue with her metoprolol, but will hold her Aldactone 3. Sarcoidosis -She is on chronic prednisone -We will continue 4. CKD 3 -Creatinine is 1.42 and is at baseline DVT: Heparin Inpatient E&M: 72318 Init Hosp L3
[2020-04-28] MEDS: Glucerna Shake 120 ML LIQUID PO ×2 (12:09→16:28)
[2020-04-28] MEDS: 0.9% Normal Saline 1,000 ML 100 ML IV ×2 (12:16→23:15)
[2020-04-28] MEDS: Heparin Injection (Vial) 5,000 UNIT/ML VIAL 5000 UNIT SC ×2 (13:05→21:36)
[2020-04-28] MEDS: Metoprolol Tartrate 50 MG Tablet PO (18:48)
[2020-04-29] VITALS (10 sets, daily range): BP systolic 103–113; BP diastolic 55–72; PULSE 78–117; RESP 16–18; TEMP 36.4–37; O2SAT 93–99
[2020-04-29] MEDS: Heparin Injection (Vial) 5,000 UNIT/ML VIAL 5000 UNIT SC ×3 (06:27→21:02)
[2020-04-29 06:53] LABS: Absolute Lymphocyte Count 0.88 X10^3/uL (0.83-4.51); Absolute Neutrophil Count 10.3 X10^3/uL (2.0-7.7); Basophil# 0.03 X10^3/uL; Basophil% 0.2 % (0-1); Eosinophil# 0.05 X10^3/uL; Eosinophils% 0.4 % (0-5); Hematocrit 49.4 % (37-47); Hemoglobin 16.1 g/dL (12.0-15.0); Lymphocyte # 0.88 X10^3/ul (4.0); Lymphocyte % 7.2 % (19-41); Mean Corp Hgb Conc 32.6 g/dL (32-36); Mean Corpuscular Volume 95.2 fL (81-99); Mean Platelet Vol. 10.8 fl (6.2-12.0); Monocyte# 0.86 X10^3/uL; NRBC Flagged by Analyzer 0 % (0-5); Neutrophil % 84.5 % (47-70); POSITIVE COUNT YES; Platelet Count 96 K/mm3 (150-450); RBC Distribution Width CV 15.8 % (11.6-14.6); RBC Distribution Width SD 54.4 fl (35.1-43.9); Red Blood Count 5.19 M/mm3 (4.2-5.4); White Blood Count 12.2 K/mm3 (4.4-11.0)
[2020-04-29 07:05] LABS: Anion Gap 6 (5-15); BUN 24 mg/dL (7-18); Calcium,Total 8.5 mg/dL (8.5-10.1); Chloride 106 mmol/L (98-107); Creatinine, Serum 1.26 mg/dL (0.55-1.02); EST Glomerular Filtration Rate 44 mL/min (>60); Est Glom Filt Rate - Afr Amer 54 mL/min (>60); Estimated Creatinine Clearance 31.45 ml/min; Glucose 124 mg/dL (74-106); Sodium Level 137 mmol/L (136-145)
[2020-04-29] MEDS: predniSONE 10 MG Tablet 5 MG PO (09:06)
[2020-04-29] MEDS: Aspirin E.C. 81 MG Tablet PO (09:06)
[2020-04-29] MEDS: 0.9% Normal Saline 1,000 ML 100 ML IV (09:07)
[2020-04-29] MEDS: Ciprofloxacin 400 MG/200 ML BAG 200 MG IV ×2 (09:08→21:02)
[2020-04-29] MEDS: Metoprolol Tartrate 50 MG Tablet PO ×2 (09:08→21:02)
--- NOTE | 2020-04-29 12:31 | CHAPLAIN ---
Type of Pastoral Visit _x__ Initial Visit ___ Follow-up Visit ___ On-call Visit ___ General Patient Visit ___ Spiritual Assessment ___ Family Conference ___ Bereavement ___ Rapid Response ___ Code Blue ___ Other (describe below) Pastoral Care Referral From _x__ Patient ___ Family ___ Nurse ___ Physician ___ Car Ferrier ___ Master Fisher ___ Other (describe below) Sacrament/Intervention _x__ Active listening ___ Anointing ___ Shinto ___ Bereavement ___ Communion ___ Amy exploration ___ _x__ Life review _x__ Prayer ___ Reconciliation ___ Sacrament of Sick _x__ Supportive presence ___ Wedding ___ Other (describe below) Pastoral Comments
--- NOTE | 2020-04-29 13:05 | CASEMGMT ---
RN EL[employer] IT DESKTOP SUPPORT TECHNICIAN CM to room to meet with patient for initial transition planning/care coordination assessment. ANNETTA MCKINLEY introduced self and role at [facility]. Pt voices understanding and consents to assessment at this time. Pt resting in bed in no distress at this time. Pt is A/O at this time and answers all questions appropriately. Care providers, pharmacy, and demographics verified/updated at this time. PCP: Dr Tidwell Specialists: Dr Carbajal-pain mgmt, Dr Almonte--nephrology, Dr Childers-cardiology, Dr Wylie-pulmonology Preferred [facility]acy: [facility] Insurance: [employer] Prescription Benefit: Yes Living Will/HPOA: Pt does not currently have LW/HCPOA and declines info at this time. Pt made aware that she can contact SW as an out-pt and make appt in the future if she decides he would like to talk with someone about this or would like to utilize [facility] social work for advanced directive completion. Given [employer] card with information and contact number. Pt expresses understanding. LNOK: , Geraldo. Son and daughter (Lisa Muller) Living Arrangements: Lives with her in mobile home w/ 7 steps to enter w/bilat siderails. Pt states she is independent w/ADL's and IADL's. able to assist if needed. Transportation: drives and states no transportation concerns at this time. DME: States has the following DME: Glucometer, shower chair, walker, BIPAP that she got through [employer]. Pt states no need for further DME at this time. HHC/SNF: No history of SNF. Has had [facility] HHC in the past. Therapy notes have been reviewed. Pt made aware PT is recommending additional therapy. Discussed options of HHC vs OP therapy and pt states does not want either. She states, I think I'll be okay once I get this infection cleared up. Pt made aware, if she decides in the future, that she would like HHC or OP therapy, to discuss this with her PCP. PT voices understanding. Pt wishes to return home and states has no concerns with going home at time of discharge. CM to follow for any discharge planning/needs. Pt voices no further concerns/needs at this time. Advised pt to ask for CM if any further questions/concerns/needs arise. Voices understanding. PLAN: Home w/spousal support and discharge plans in place. Fran GOODEN RN CM
--- NOTE | 2020-04-29 13:43 | PCM.PN.HOSP ---
Subjective: Feeling better today, no issues overnight Vitals/I&O's: Vital Signs Temp Pulse Resp BP Pulse Ox 98.6 F 91 18 104/72 93 04/29/20 09:04 04/29/20 09:08 04/29/20 09:04 04/29/20 09:04 04/29/20 09:04 Oxygen Flow Rate (L/min) 1 Oxygen Delivery Method Room Air Weight: 198 lb 3.129 oz Body Mass Index (BMI) 36.2 Finger Stick Blood Glucose 124 Intake and Output for Last 24 Hours 04/27/20 04/28/20 04/29/20 23:59 23:59 23:59 Intake Total 2073.33 / 2073.33 1693.34 / 1693.34 Output Total 700 / 700 950 / 950 Balance 1373.33 / 1373.33 743.34 / 743.34 General: Alert, Oriented x3, Cooperative, No apparent distress HEENT: Atraumatic, PERRLA, EOMI, Normocephalic Oral: Moist Mucosa Neck: Supple, No JVD Lungs: Clear to auscultation, Normal air movement, No rhonchi, No wheeze, No rales, Diminished Cardiovascular: Regular rate, Regular Rhythm, Normal S1, Normal S2, No murmurs Abdomen: Soft, Non Tender, Non-Distended, No Hepato-splenomegaly Extremities: No edema, Capillary Refill Less than 3 Seconds Skin: No rashes, No breakdown Neurological: Neuro grossly intact, Sensory exam intact to light touch and pain Psych/Mental Status: Normal Affect, Appropriate Microbiology Past 72 Hours 04/28/20 09:35 Urine, Clean Catch Urine Culture - Preliminary Presumptive E. coli Laboratory Results 04/29/20 06:35: WBC 12.2 H, RBC 5.19, Hgb 16.1 H, Hct 49.4 H, MCV 95.2, MCH 31.0, MCHC 32.6, RDW Std Deviation 54.4 H, RDW Coeff of Heike 15.8 H, Plt Count 96 L, MPV 10.8, Immature Gran % (Auto) 0.700, Neut % (Auto) 84.5 H, Lymph % (Auto) 7.2 L, Alfalfa % (Auto) 7.0, Eos % (Auto) 0.4, Baso % (Auto) 0.2, Absolute Neuts (auto) 10.3 H, Absolute Lymphs (auto) 0.88, Nucleated RBC % 0 04/29/20 06:35: Sodium 137, Potassium 4.0, Chloride 106, Carbon Dioxide 25.0, Anion Gap 6, BUN 24 H, Creatinine 1.26 H, Estim Creat Clear Calc 31.45, Est GFR (MDRD) Af Amer 54 L, Est GFR (MDRD) Non-Af 44 L, BUN/Creatinine Ratio 19.0, Glucose 124 H, Calcium 8.5 Current Medications Acetaminophen (Tylenol) 650 mg PO Q6H PRN PRN PRN Reason: Pain Score 1-10/Temp > 100.7 F Aspirin (Ecotrin) 81 mg PO DAILY@0800 [facility] Last Admin: 04/29/20 09:06 Dose: 81 mg Documented by: Atorvastatin Calcium (Lipitor) 40 mg PO QHS [facility] Heparin Sodium (Porcine) (Heparin Na) 5,000 unit SC Q8 [facility] Last Admin: 04/29/20 06:27 Dose: 5,000 unit Documented by: Sodium Chloride () 250 mls @ 15 mls/hr IV .[id number] PRN PRN Reason: Saline Flush Sodium Chloride () 250 mls @ 15 mls/hr IV .[id number] PRN PRN Reason: Additional IVPB Infusion Ciprofloxacin (Cipro) 400 mg in 200 mls @ 200 mls/hr IV Q12 [facility] Last Infusion: 04/29/20 10:52 Dose: Infused Documented by: Sodium Chloride () 1,000 mls @ 100 mls/hr IV .Q10H [facility] Last Admin: 04/29/20 09:07 Dose: 100 mls/hr Documented by: Melatonin (Melatonin) 3 mg PO QHS PRN PRN PRN Reason: INSOMNIA Metoprolol Tartrate (Lopressor (Beta Brandt)) 50 mg PO BID [facility] Last Admin: 04/29/20 09:08 Dose: 50 mg Documented by: Nutritional Formula (Lactose Free) (Glucerna Shake) 120 ml PO TIDCM [facility] Last Admin: 04/29/20 09:06 Dose: Not Given Documented by: Prednisone () 5 mg PO DAILYCM [facility] Last Admin: 04/29/20 09:06 Dose: 5 mg Documented by: Sodium Chloride () 10 - 40 ml IV UD PRN PRN Reason: SALINE FLUSH Medical Necessity - Tobacco Use Smoking Status: Never smoker Tobacco Use: Non-smoker Assessment/Plan All Active Problems (Last Reviewed 03/18/20 @ 10:28 by Coleen Soto NP-C) Swelling of right upper extremity (Acute) GI bleeding (Resolved) Hypersomnia (Resolved) History of cardiac radiofrequency ablation (RFA) (Resolved 01/09/17) Ulcer of right lower extremity with fat layer exposed (Resolved) S/P laparoscopic cholecystectomy (Resolved) h/o left foot surgery (Resolved) S/P PICC central line placement (Resolved) Status post laparoscopic [place] fundoplication (Resolved) History of patent ductus arteriosus (Resolved) History of hysterectomy (Resolved) History of removal of skin mole (Resolved) History of lymph node excision (Resolved) H/O skin graft (Resolved) Cardiogenic shock (Resolved 04/07/19) 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 Sepsis secondary to UTI causing her generalized weakness -Her previous cultures grew Klebsiella and the Citrobacter that was resistant to Ancef, and she is allergic to Rocephin -Continue with Cipro IV twice daily, urine culture with greater than 100,000 E. coli -Continue with PT and OT for evaluation -Blood and urine cultures are pending 2. Chronic A. fib and sick sinus syndrome status post radiofrequency ablation/chronic diastolic CHF/CAD status post stent -Continue with aspirin, she is not on any anticoagulation per cardiology -Continue with her Lipitor, but will hold her Lasix as she is on IV fluids for dehydration -Continue with her metoprolol, but will hold her Aldactone 3. Sarcoidosis -She is on chronic prednisone -We will continue 4. CKD 3 -Creatinine is 1.42 and is at baseline DVT: Heparin Inpatient E&M: 43821 Subs Hosp L2
[2020-04-29] MEDS: Glucerna Shake 120 ML LIQUID PO ×2 (14:16→16:53)
[2020-04-29] MEDS: Atorvastatin Calcium 40 MG Tablet PO (21:02)
[2020-04-29] MEDS: 0.9% Saline Lock 10 ML Syringe IV (21:32)
[2020-04-30] VITALS (7 sets, daily range): BP systolic 98–128; BP diastolic 57–71; PULSE 65–123; RESP 16–22; TEMP 36.4–36.9; O2SAT 92–97
[2020-04-30] MEDS: Heparin Injection (Vial) 5,000 UNIT/ML VIAL 5000 UNIT SC (06:38)
[2020-04-30] MEDS: 0.9% Saline Lock 10 ML Syringe IV (07:51)
[2020-04-30] MEDS: Furosemide 40 MG/4 ML Vial IV (07:51)
[2020-04-30] MEDS: Aspirin E.C. 81 MG Tablet PO (08:00)
[2020-04-30] MEDS: predniSONE 10 MG Tablet 5 MG PO (08:00)
[2020-04-30] MEDS: Metoprolol Tartrate 50 MG Tablet PO (08:01)
[2020-04-30] MEDS: Ciprofloxacin 400 MG/200 ML BAG 200 MG IV (10:25)
[2020-04-30] MEDS: Glucerna Shake 120 ML LIQUID PO (10:31)
--- NOTE | 2020-04-30 13:23 | DCINST_ITS ---
You will use the following diet at home:: Cardiac Your food should be the consistency of: Regular Your liquids should be the consistency of: Regular/Thin Discharge Activity: Return to Normal Activity Call your doctor if you observe: Fever of 101 or Higher, Shortness of breath, Dizziness, Fainting spells, Swelling in the ankles, Chest pain, Increased palpitations (irregular heartbeat) Allergies/Adverse Reactions: Allergies amlodipine besylate [From Norvasc] Allergy (Verified 04/28/20 08:09) Unknown ceftriaxone Allergy (Verified 04/28/20 08:09) Rash doxazosin [From Cardura] Allergy (Verified 04/28/20 08:09) Unknown doxazosin mesylate [From Cardura] Allergy (Verified 04/28/20 08:09) Other VEINS TURNED RED doxycycline Allergy (Verified 04/28/20 08:09) Unknown Pt doesn't remember enalapril maleate [From Vasotec] Allergy (Verified 04/28/20 08:09) Rash enalaprilat dihydrate [From Vasotec] Allergy (Verified 04/28/20 08:09) Rash hydroxyzine HCl [From Vistaril] Allergy (Verified 04/28/20 08:09) Rash hydroxyzine pamoate [From Vistaril] Allergy (Verified 04/28/20 08:09) Rash meperidine HCl [From Demerol] Allergy (Verified 04/28/20 08:09) Rash Sulfa (Sulfonamide Antibiotics) Allergy (Verified 04/28/20 08:09) Hives sulfamethoxazole [From Bactrim] Allergy (Verified 04/28/20 08:09) Hives trimethoprim [From Bactrim] Allergy (Verified 04/28/20 08:09) Hives losartan Adverse Reaction (Unknown, Verified 04/28/20 08:09) Unknown Medications to take at Discharge prednisone 10 mg tablet 5 mg PO DAILY tab 10/08/18 Aspirin E.C. [Ecotrin] 81 mg PO DAILY@0800 #30 tab 04/09/19 Atorvastatin Calcium [Lipitor] 40 mg PO QHS #30 tab 04/09/19 metoprolol tartrate 50 mg tablet 50 mg PO BID 12/04/19 spironolactone 25 mg tablet 25 mg PO DAILY #30 tab 04/08/20 furosemide 40 mg tablet 40 mg PO DAILY #180 tab 04/15/20 potassium chloride 20 mEq tablet,extended release 20 meq PO DAILY #60 tab 04/15/20 Ciprofloxacin [Cipro] 500 mg PO BID #10 tab 04/30/20 The following prescriptions were given: Ciprofloxacin [Cipro] 500 mg PO BID #10 tab Transmission Status: Pending to [facility] Primary Care Physician: Aaron Tidwell MD [Primary Care Provider] - Please follow up with your Primary Care Physician in: 3-5 days Test Results: Test results from this visit will be discussed in further detail at your follow- up appointment, if applicable.
--- NOTE | 2020-04-30 13:24 | PCM.DC.SUM ---
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 calciphylaxis vs. erythema nodosum vs. dermatomyositis vs. panniculitis Mass of soft tissue of right lower extremity (Chronic) right inner upper thigh - ? calciphylaxis vs. erythema nodosum vs. dermatomyositis vs. panniculitis LYN (obstructive sleep apnea) (Chronic) GERD (gastroesophageal reflux disease) (Chronic) Calcinosis (Chronic) Recurrent falls (Chronic) PAOD (peripheral arterial occlusive disease) (Chronic) Depression (Chronic) Neuropathic pain (Chronic) Ulcer of left lower extremity with fat layer exposed (Chronic) Calciphylaxis (Chronic) Venous insufficiency (chronic) (peripheral) (Chronic) Sarcoidosis (Chronic) MRSA (methicillin resistant staph aureus) culture positive (Chronic) Bradycardia by electrocardiogram (Chronic) Thyroid nodule (Chronic) History of ST elevation myocardial infarction (STEMI) (Chronic 04/07/19) 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 No acute abnormality is seen. Electronically Signed: Calros Cai, at 9:00 EDT , Service support , Consults: None Operations: None Procedures: None Summary of Care Provided: Per HPI: The patient is a 74 year old F with PMH as below presents with generalized weakness for several weeks prior to admission, ever since she had an injection by pain management. She gets these fairly frequently for spinal stenosis she denies any worsening back pain or neurological issues with numbness, tingling, loss of bowel and bladder function. She recently saw her daughter who took her off of her Synthroid medication and was going to test her this coming week. In the ER her TSH was normal. She denies any chest pain, shortness of breath, lightheadedness or fevers at home. She has not had any symptoms either however on admission she was found to have a UTI based on UA. Because of this she was admitted to the hospital for possible sepsis secondary to a urinary tract infection. Her heart rate was elevated but this is also likely secondary to her chronic A. fib, and she was tachypneic. She she is afebrile, with a leukocytosis of 13.3, lactate is normal. Hospital Course: 1. Sepsis secondary to E. coli UTI leading to generalized [id number] female presents from home with weakness that is been getting worse she initially felt worse after she had pain however pain in her back was about the including numbness or tingling she denies any when she presented to the hospital she was found to have a UTI. This ended up growing E. coli which was pansensitive. She was started on Cipro twice daily initially and transitioned to p.o. to complete her course. She also was started on some IV fluids and her diuretics including her Lasix and her Aldactone were held. She did develop some shortness of breath on the day of discharge but this resolved with a single IV dose of Lasix. She was taken off the oxygen was ambulating well. I discussed the plan for discharge with her and her both expressed understanding of the risks and benefits of going home today. She will need to follow-up with her PCP in 3 to 5 days. 2. Chronic A. fib with sick sinus syndrome status post ablation, chronic diastolic CHF, CAD status post stent, sarcoidosis, CKD all chronic conditions that. Her home medications were continued where appropriate. - Physical Exam Vitals/I&O's: Vital Signs Temp Pulse Resp BP Pulse Ox 98 F 69 17 106/64 92 04/30/20 12:59 04/30/20 12:59 04/30/20 12:59 04/30/20 12:59 04/30/20 12:59 Oxygen Flow Rate (L/min) 2 Oxygen Delivery Method Room Air Weight: 198 lb 3.129 oz Body Mass Index (BMI) 36.2 Finger Stick Blood Glucose 124 Intake and Output for Last 24 Hours 04/28/20 04/29/20 04/30/20 23:59 23:59 23:59 Intake Total 2073.33 / 2073.33 2891.67 / 2891.67 1070 / 1070 Output Total 700 / 700 950 / 950 2600 / 2600 Balance 1373.33 / 1373.33 1941.67 / 1941.67 -1530 / -1530 General: Alert, Oriented x3, Cooperative, No apparent distress HEENT: Atraumatic, PERRLA, EOMI, Normocephalic Oral: Moist Mucosa Neck: Supple, No JVD Lungs: Clear to auscultation, Normal air movement, No rhonchi, No wheeze, No rales, Diminished Cardiovascular: Regular rate, Regular Rhythm, Normal S1, Normal S2, No murmurs Abdomen: Soft, Non Tender, Non-Distended, No Hepato-splenomegaly Extremities: No edema, Capillary Refill Less than 3 Seconds Skin: No rashes, No breakdown Neurological: Neuro grossly intact, Sensory exam intact to light touch and pain Psych/Mental Status: Normal Affect, Appropriate Microbiology Past 72 Hours 04/28/20 08:20 Blood Culture (Wb) - Left Forearm Blood Culture - Preliminary No growth in 48 hours. 04/28/20 08:14 Blood Culture (Wb) - Right Wrist Blood Culture - Preliminary No growth in 48 hours. 04/28/20 09:35 Urine, Clean Catch Urine Culture - Final Presumptive E. coli Current Medications Acetaminophen (Tylenol) 650 mg PO Q6H PRN PRN PRN Reason: Pain Score 1-10/Temp > 100.7 F Aspirin (Ecotrin) 81 mg PO DAILY@0800 [facility] Last Admin: 04/30/20 08:00 Dose: 81 mg Documented by: Atorvastatin Calcium (Lipitor) 40 mg PO QHS [facility] Last Admin: 04/29/20 21:02 Dose: 40 mg Documented by: Heparin Sodium (Porcine) (Heparin Na) 5,000 unit SC Q8 [facility] Last Admin: 04/30/20 06:38 Dose: 5,000 unit Documented by: Sodium Chloride () 250 mls @ 15 mls/hr IV .[id number] PRN PRN Reason: Saline Flush Sodium Chloride () 250 mls @ 15 mls/hr IV .[id number] PRN PRN Reason: Additional IVPB Infusion Ciprofloxacin (Cipro) 400 mg in 200 mls @ 200 mls/hr IV Q12 [facility] Last Infusion: 04/30/20 11:56 Dose: Infused Documented by: Melatonin (Melatonin) 3 mg PO QHS PRN PRN PRN Reason: INSOMNIA Metoprolol Tartrate (Lopressor (Beta Brandt)) 50 mg PO BID [facility] Last Admin: 04/30/20 08:01 Dose: 50 mg Documented by: Nutritional Formula (Lactose Free) (Glucerna Shake) 120 ml PO TIDCM [facility] Last Admin: 04/30/20 10:31 Dose: 120 ml Documented by: Prednisone () 5 mg PO DAILYCM [facility] Last Admin: 04/30/20 08:00 Dose: 5 mg Documented by: Sodium Chloride () 10 - 40 ml IV UD PRN PRN Reason: SALINE FLUSH Last Admin: 04/30/20 07:51 Dose: 20 ml Documented by: Discharge Activity: Return to Normal Activity Call your doctor if you observe: Fever of 101 or Higher, Shortness of breath, Dizziness, Fainting spells, Swelling in the ankles, Chest pain, Increased palpitations (irregular heartbeat) Home Medications: Medications to take at Discharge prednisone 10 mg tablet 5 mg PO DAILY tab 10/08/18 Aspirin E.C. [Ecotrin] 81 mg PO DAILY@0800 #30 tab 04/09/19 Atorvastatin Calcium [Lipitor] 40 mg PO QHS #30 tab 04/09/19 metoprolol tartrate 50 mg tablet 50 mg PO BID 12/04/19 spironolactone 25 mg tablet 25 mg PO DAILY #30 tab 04/08/20 furosemide 40 mg tablet 40 mg PO DAILY #180 tab 04/15/20 potassium chloride 20 mEq tablet,extended release 20 meq PO DAILY #60 tab 04/15/20 Ciprofloxacin [Cipro] 500 mg PO BID #10 tab 04/30/20 Following Prescriptions Were Given to Patient: Ciprofloxacin [Cipro] 500 mg PO BID #10 tab Transmission Status: Pending to [facility] Primary Care Physician: Aaron Tidwell MD [Primary Care Provider] - Please follow up with your Primary Care Physician in: 3-5 days Disposition: Home Minutes spent on discharge:: 35 Patient Condition:: Stable Medical Necessity - Tobacco Use Smoking Status: Never smoker Tobacco Use: Non-smoker Meaningful Use Info Meaningful Use Diagnoses (Choose all that apply): None applicable Inpatient E&M: [id number] [facility]
--- NOTE | 2020-05-01 14:53 | CASEMGMT ---
ANNETTA MCKINLEY DC CALL DC DATE: 04/30/20 DC DIAGNOSIS: Sepsis, UTI DC DISPOSITION: Home APPOINTMENT MADE ON DC: yes PRESCRIPTIONS PICKED UP: yes Intro role of CM to patient via phone. Patient states she is still feeling tired and weak, however no other symptoms like shortness of breath. Pt states she has not urinated as much as she usually does at home, but has taken medications as prescribed. ANNETTA CM let pt know to continue to weigh herself daily and if weight increases tomorrow, or she has other symptoms to call her PCP. Patient had no further questions and will contact PCP if needed. No care improvement suggestions given. Je BLANC RN ACM
== END 2020-04-30 14:23 | disposition home or self-care (01) | DRG 872 ==
LOC: ED 08:57 → PCU 10:48
PROVIDERS: Admitting Provider Family Medicine; Emergency Provider Emergency Medicine; PCP Internal Medicine; Visit Provider Family Medicine
DX: A41.9 Sepsis, unspecified organism (principal); I48.20 Chronic atrial fibrillation, unspecified; N39.0 Urinary tract infection, site not specified; B96.20 Unspecified Escherichia coli [E. coli] as the cause of diseases classified elsewhere; I50.32 Chronic diastolic (congestive) heart failure; I13.0 Hypertensive heart and chronic kidney disease with heart failure and stage 1 through stage 4 chronic kidney disease, or unspecified chronic kidney disease; I49.5 Sick sinus syndrome; D69.6 Thrombocytopenia, unspecified; I25.10 Atherosclerotic heart disease of native coronary artery without angina pectoris; N18.3 Chronic kidney disease, stage 3 (moderate); D86.9 Sarcoidosis, unspecified; E11.22 Type 2 diabetes mellitus with diabetic chronic kidney disease; Z79.52 Long term (current) use of systemic steroids; Z83.3 Family history of diabetes mellitus; Z82.49 Family history of ischemic heart disease and other diseases of the circulatory system; Z88.1 Allergy status to other antibiotic agents; Z95.5 Presence of coronary angioplasty implant and graft; Z79.01 Long term (current) use of anticoagulants; Z79.82 Long term (current) use of aspirin; Z86.14 Personal history of Methicillin resistant Staphylococcus aureus infection; Z90.49 Acquired absence of other specified parts of digestive tract; Z90.710 Acquired absence of both cervix and uterus; I25.2 Old myocardial infarction
CPT/HCPCS: 36415; 71045; 80048; 80053; 81001; 83605; 84443; 84484; 85025; 85610; 85730; 87040; 87086; 87088; 87186; 93005; 97116; 97162; 97166; 97802; 99285; J7030; A4216; J0744; J1940

== ENCOUNTER → 2020-05-13 09:55 | Outpatient (CLI) | payer MEDICARE, SELFPAY ==
[2019-06-21 15:30] VITALS: BMI 35.8
[2020-04-28 11:27] VITALS: BMI 36.2
[2020-05-13 11:19] LABS: Anion Gap 4 (5-15); BUN 27 mg/dL (7-18); BUN/Creat Ratio 20.9 RATIO (10-20); Calcium,Total 9.1 mg/dL (8.5-10.1); Chloride 103 mmol/L (98-107); Creatinine, Serum 1.29 mg/dL (0.55-1.02); EST Glomerular Filtration Rate 43 mL/min (>60); Est Glom Filt Rate - Afr Amer 52 mL/min (>60); Glucose 167 mg/dL (74-106); Potassium 4.7 mmol/L (3.5-5.1); Sodium Level 136 mmol/L (136-145)
== END ==
PROVIDERS: PCP Internal Medicine; Referring Provider Physician Assistant Medical; Visit Provider Physician Assistant Medical
DX: I10 Essential (primary) hypertension (principal)
CPT/HCPCS: 36415; 80048

== ENCOUNTER 2020-06-24 10:04 | Inpatient (IN) | payer MEDICARE, SELFPAY ==
[2019-06-21 15:30] VITALS: BMI 35.8
[2020-05-20 09:48] VITALS: BMI 36.2
[2020-06-24] VITALS (22 sets, daily range): BP systolic 93–127; BP diastolic 55–98; PULSE 70–115; RESP 15–22; TEMP 36.1–36.8; O2SAT 91–100; BMI 38.0; BMI 34.9
--- NOTE | 2020-06-24 10:19 | ED.VIS.GEN ---
History of Present Illness Chief Complaint: Cellulitis Informant: Patient Onset: Days Context: Sudden Onset Timing: Continuous Quality: Redness, warmth and swelling Location: Right ankle and foot Current Severity: Mild Maximum Severity: Mild Worsened by: Nothing Relieved by: Nothing Associated Symptoms: Denies fever, chills or drainage Narrative: She is an elderly woman with diet-controlled diabetes who presents because of redness, pain and swelling of the right ankle and foot that started several days ago. She denies fever or chills. She denies ocular, visual auditory symptoms. She denies cardiac respiratory symptoms. She denies polyuria polydipsia. She has history of prior infection and wounds. She denies history of VTE and specifically DVT. 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 Status: Acute (2) Anemia Status: Chronic (3) Arthralgia Status: Chronic (4) Atherosclerosis of coronary artery of [place] heart without angina pectoris Status: Chronic (5) Calcinosis Status: Chronic (6) Chronic atrial fibrillation Status: Chronic (7) Chronic kidney disease, stage 3 Status: Chronic (8) Depression Status: Chronic (9) Essential (primary) hypertension Status: Chronic (10) GERD (gastroesophageal reflux disease) Status: Chronic (11) intermediate current use of anticoagulant Status: Chronic (12) MRSA (methicillin resistant staph aureus) culture positive Status: Chronic (13) Neuropathic pain Status: Chronic (14) LYN (obstructive sleep apnea) Status: Chronic (15) Old inferior wall myocardial infarction Status: Chronic (16) PAOD (peripheral arterial occlusive disease) Status: Chronic (17) Sarcoidosis Status: Chronic (18) Secondary pulmonary arterial hypertension Status: Chronic (19) Sick sinus syndrome Status: Chronic (20) Type 2 diabetes mellitus Status: Chronic Past Medical History - Allergies and Home Meds Allergies/Adverse Reactions: Allergies amlodipine besylate [From Norvasc] Allergy (Verified 06/24/20 10:06) Unknown ceftriaxone Allergy (Verified 06/24/20 10:06) Rash doxazosin [From Cardura] Allergy (Verified 06/24/20 10:06) Unknown doxazosin mesylate [From Cardura] Allergy (Verified 06/24/20 10:06) Other VEINS TURNED RED doxycycline Allergy (Verified 06/24/20 10:06) Unknown Pt doesn't remember enalapril maleate [From Vasotec] Allergy (Verified 06/24/20 10:06) Rash enalaprilat dihydrate [From Vasotec] Allergy (Verified 06/24/20 10:06) Rash hydroxyzine HCl [From Vistaril] Allergy (Verified 06/24/20 10:06) Rash hydroxyzine pamoate [From Vistaril] Allergy (Verified 06/24/20 10:06) Rash meperidine HCl [From Demerol] Allergy (Verified 06/24/20 10:06) Rash Sulfa (Sulfonamide Antibiotics) Allergy (Verified 06/24/20 10:06) Hives sulfamethoxazole [From Bactrim] Allergy (Verified 06/24/20 10:06) Hives trimethoprim [From Bactrim] Allergy (Verified 06/24/20 10:06) Hives losartan Adverse Reaction (Unknown, Verified 06/24/20 10:06) Unknown Primary Care Physician: Aaron Tidwell MD [Primary Care Provider] - Prior records reviewed: Yes Surgical History: cataract, cholecystectomy, hysterectomy, - Lives: Spouse/ Significant Other Smoking Status: Never smoker Alcohol: None Drugs: None - Family History Maternal Family History: Family History (Last Reviewed 05/20/20 @ 10:14 by Gosia BEGUM, PA) Mother Diabetes Brother Diabetes Myocardial infarction Cancer Son Hypertension Daughter Arthritis Diabetes Hypertension Brother Cancer Family History: Reports: No pertinent history Paternal Family History: Family History (Last Reviewed 05/20/20 @ 10:14 by Gosia BEGUM, PA) Mother Diabetes Brother Diabetes Myocardial infarction Cancer Son Hypertension Daughter Arthritis Diabetes Hypertension Brother Cancer Family History: Reports: No pertinent history Review of Systems General: Denies: Chills, Fever, Malaise, Subjective Eyes: Denies: Visual changes - bilaterally, Blurred Vision - bilaterally ENT: Denies: Rhinorrhea, Sore throat Cardiovascular: Denies: Chest pain, Palpitations Respiratory: Denies: Dyspnea, Cough, Dyspnea on exertion Gastrointestinal: Denies: Abdominal pain, Nausea, Vomiting, Diarrhea, Melena, Hematochezia Genitourinary: Denies: Dysuria, Hematuria, Frequency Musculoskeletal: Reports: Swelling, Extremity Pain. Denies: Myalgias, Arthralgias, Neck pain, Back pain Skin: Reports: Rash. Denies: Wounds Neurological: Reports: Parasthesia. Denies: Weakness Endocrine: Denies: Polyuria, Polydipsia Hematologic: Denies: Easy bruising, Easy bleeding Physical Exam Vital Signs/Narrative: Vital Signs Temp Pulse Resp BP Pulse Ox 06/24/20 10:16 97.3 F L 115 H 17 120/86 H 96 06/24/20 10:05 97.3 F L 115 H 17 120/86 H 96 Inital Vital Signs reviewed: Yes General: Well nourished, Well developed, Obese, No Acute Distress Head: Normocephalic, Atraumatic Eyes: Perrl, EOMI. Negative for: Pale conjunctiva, Scleral icterus ENT: Moist mucous membranes, No rhinorrhea Neck: Supple, Nontender, No lymphadenopathy Cardiovascular: Regular rate, No murmurs, Irregular Respiratory: No distress, CTA bilaterally Rectal: Deferred Extremities: Tenderness, Edema, - - Erythema and warmth of the right foot and ankle with what appears to be lymphangitic spread to the knee. There is no popliteal or inguinal lymphadenopathy. There is no induration. There is no fluctuance.. Negative for: Nontender, No edema Skin: Normal color, Rash. Negative for: Cyanosis, Diaphoresis, Jaundice, No Trauma Neurological: Alert, Oriented x3, Cranial nerves II-XII grossly intact, Normal Strength, Normal Sensation. Negative for: Normal DTR Psychological: - - Affect is flat Diagnostic/Tx/Re-eval Laboratory Results 06/24/20 06/24/20 06/24/20 10:37 10:37 10:37 WBC 13.4 H RBC 5.02 Hgb 15.4 H Hct 48.5 H MCV 96.6 MCH 30.7 MCHC 31.8 L RDW Std Deviation 53.6 H RDW Coeff of Heike 15.3 H Plt Count 128 L MPV 11.0 Immature Gran % (Auto) 0.600 Neut % (Auto) 81.8 H Lymph % (Auto) 8.4 L [place] % (Auto) 9.0 Eos % (Auto) 0.1 Baso % (Auto) 0.1 Absolute Neuts (auto) 11.0 H Absolute Lymphs (auto) 1.12 Nucleated RBC % 0 Sodium 138 Potassium 3.7 Chloride 104 Carbon Dioxide 28.0 Anion Gap 6 BUN 26 H Creatinine 1.27 H Estim Creat Clear Calc 31.20 Est GFR (MDRD) Af Amer 53 L Est GFR (MDRD) Non-Af 44 L BUN/Creatinine Ratio 20.5 H Glucose 164 H Lactic Acid 2.2 H* Calcium 9.7 And has 2 SIRS criteria with elevated lactate. She has severe sepsis. Blood cultures were ordered. There is evidence of renal insufficiency. Endorgan abnormality is the elevated lactate. - Medical Decision Making This may represent venous stasis versus cellulitis Wells score is a -2. Appropriate blood work was ordered. Based on patient's allergies and prior history of MRSA outpatient treatment would be clindamycin and inpatient treatment would require vancomycin. Appropriate labs were obtained to assess if patient has sepsis versus severe sepsis and would require inpatient treatment or outpatient treatment. ED Disposition - Plan for ED Patient: Disposition: Acute Care [facility] Diagnosis: Severe sepsis, Cellulitis of right lower limb, Elevated serum creatinine, Sinus tachycardia seen on bus driver/monitor Referrals: Aaron Tidwell MD [Primary Care Provider] -
[2020-06-24 10:45] LABS: Absolute Lymphocyte Count 1.12 X10^3/uL (0.83-4.51); Basophil# 0.02 X10^3/uL; Basophil% 0.1 % (0-1); Eosinophil# 0.02 X10^3/uL; Eosinophils% 0.1 % (0-5); Hematocrit 48.5 % (37-47); Hemoglobin 15.4 g/dL (12.0-15.0); Lymphocyte # 1.12 X10^3/ul (4.0); Lymphocyte % 8.4 % (19-41); Mean Corp Hgb Conc 31.8 g/dL (32-36); Mean Corpuscular Hgb 30.7 pg (27.0-32.0); Mean Corpuscular Volume 96.6 fL (81-99); Monocyte# 1.21 X10^3/uL; NRBC Flagged by Analyzer 0 % (0-5); Neutrophil # 10.95 X10^3/uL (2.7-7.7); Neutrophil % 81.8 % (47-70); Platelet Count 128 K/mm3 (150-450); RBC Distribution Width CV 15.3 % (11.6-14.6); RBC Distribution Width SD 53.6 fl (35.1-43.9); Red Blood Count 5.02 M/mm3 (4.2-5.4); White Blood Count 13.4 K/mm3 (4.4-11.0)
[2020-06-24 11:03] LABS: Anion Gap 6 (5-15); BUN 26 mg/dL (7-18); BUN/Creat Ratio 20.5 RATIO (10-20); Calcium,Total 9.7 mg/dL (8.5-10.1); Chloride 104 mmol/L (98-107); Creatinine, Serum 1.27 mg/dL (0.55-1.02); EST Glomerular Filtration Rate 44 mL/min (>60); Est Glom Filt Rate - Afr Amer 53 mL/min (>60); Glucose 164 mg/dL (74-106); Potassium 3.7 mmol/L (3.5-5.1); Sodium Level 138 mmol/L (136-145)
[2020-06-24 11:30] LABS: Lactic Acid 2.2 mmol/L (0.4-1.9)
--- NOTE | 2020-06-24 12:03 | NURSING ---
MED SURG CELLULITIS ZAY
[2020-06-24] MEDS: levoFLOXacin IV 750 MG/150 ML BAG 100 MG IV (12:40)
--- NOTE | 2020-06-24 12:43 | HP.PCM_ITS ---
History of Present Illness Date of Admission: 06/24/20 Ms Zapata is a 74 yo female who presented to the ED on 06/24/2020 with R LE pain and redness. She states that this started about 1 week ago in her toes and has gradually gotten worse and it has moved up to mid calf. She c/o pain, swelling and redness hat has worsened. She had ulcers on that LE remotely that are now heeled. She denies fevers, chills, malaise, CP, SOB or dysuria. She reports other than her leg she has been feeling fine. She has not sought any treatment for this until today and was on antibiotics about 1 month ago for a UTI but that is all. She was afebrile on presentation. She was initially tachycardic but her HR came down to the 70-80 range in the ED. Her BP's were never low. She had an elevated WBC count with a L shift and mild thrombocytopenia which appears to be improving since her last lab. Her lactic acid was slightly elevated at 2.2. She was given Vanc and Levaquin in the ED. Past Medical History Past Medical History (Chronic Problems): Chronic Problems (Last Reviewed 05/20/20 @ 10:14 by Gosia BEGUM, PA) Sinus pause (Chronic) Sick sinus syndrome (Chronic) Status post placement of implantable loop recorder (Chronic) Type 2 diabetes mellitus (Chronic) Lung nodule (Chronic) 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) Venous stasis ulcer of left lower leg with edema of left lower leg (Chronic) Venous stasis ulcer of right lower leg with edema of right lower leg (Chronic) Arthralgia (Chronic) Myalgia (Chronic) Mass of soft tissue of left lower extremity (Chronic) left inner upper thigh - ? calciphylaxis vs. erythema nodosum vs. dermatomyositis vs. panniculitis Mass of soft tissue of right lower extremity (Chronic) right inner upper thigh - ? calciphylaxis vs. erythema nodosum vs. dermatomyositis vs. panniculitis LYN (obstructive sleep apnea) (Chronic) GERD (gastroesophageal reflux disease) (Chronic) Calcinosis (Chronic) Recurrent falls (Chronic) PAOD (peripheral arterial occlusive disease) (Chronic) Depression (Chronic) Neuropathic pain (Chronic) Ulcer of left lower extremity with fat layer exposed (Chronic) Calciphylaxis (Chronic) Venous insufficiency (chronic) (peripheral) (Chronic) Sarcoidosis (Chronic) MRSA (methicillin resistant staph aureus) culture positive (Chronic) Bradycardia by electrocardiogram (Chronic) Thyroid nodule (Chronic) History of ST elevation myocardial infarction (STEMI) (Chronic 04/07/19) 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) Essential (primary) hypertension (Chronic) Secondary pulmonary arterial hypertension (Chronic) Atherosclerosis of coronary artery of [place] heart without angina pectoris (Chronic) Chronic atrial fibrillation (Chronic) Chronic kidney disease, stage 3 (Chronic) Acute on chronic diastolic (congestive) heart failure (Chronic) Anemia (Chronic) retirement current use of anticoagulant (Chronic) Medical History: Medical History (Last Reviewed 05/20/20 @ 10:14 by Gosia Lawson PA, PA) Sinus pause (Chronic) I45.5 Sick sinus syndrome (Chronic) I49.5 Status post placement of implantable loop recorder (Chronic) Z95.818 GI bleeding (Resolved) K92.2 Type 2 diabetes mellitus (Chronic) E11.9 Lung nodule (Chronic) R91.1 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) M48.061, M54.16 Venous stasis ulcer of left lower leg with edema of left lower leg (Chronic) I83.892, I83.028, R60.9 Venous stasis ulcer of right lower leg with edema of right lower leg (Chronic) I83.891, I83.018, R60.9 Arthralgia (Chronic) M25.50 Myalgia (Chronic) M79.1 Mass of soft tissue of left lower extremity (Chronic) R22.42 left inner upper thigh - ? calciphylaxis vs. erythema nodosum vs. dermatomyositis vs. panniculitis Mass of soft tissue of right lower extremity (Chronic) R22.41 right inner upper thigh - ? calciphylaxis vs. erythema nodosum vs. dermatomyositis vs. panniculitis Hypersomnia (Resolved) G47.10 LYN (obstructive sleep apnea) (Chronic) G47.33 GERD (gastroesophageal reflux disease) (Chronic) K21.9 Calcinosis (Chronic) E83.59 Recurrent falls (Chronic) R29.6 PAOD (peripheral arterial occlusive disease) (Chronic) I77.9 Depression (Chronic) F32.9 Neuropathic pain (Chronic) M79.2 Ulcer of right lower extremity with fat layer exposed (Resolved) L97.912 Ulcer of left lower extremity with fat layer exposed (Chronic) L97.922 Calciphylaxis (Chronic) E83.59 Venous insufficiency (chronic) (peripheral) (Chronic) I87.2 Sarcoidosis (Chronic) D86.9 MRSA (methicillin resistant staph aureus) culture positive (Chronic) Z22.322 Cardiogenic shock (Resolved) Onset Date: 04/07/19 R57.0 Bradycardia by electrocardiogram (Chronic) R00.1 Thyroid nodule (Chronic) E04.1 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) E05.[address] elevation myocardial infarction (STEMI) (Chronic) Onset Date: 04/07/19 I25.2 Old inferior wall myocardial infarction (Chronic) Onset Date: 04/07/19 I25.2 Essential (primary) hypertension (Chronic) I10 Secondary pulmonary arterial hypertension (Chronic) I27.21 Atherosclerosis of coronary artery of [place] heart without angina pectoris (Chronic) I25.10 Chronic atrial fibrillation (Chronic) I48.2 Junctional rhythm (Resolved) I49.8 Chronic kidney disease, stage 3 (Chronic) N18.3 Acute on chronic diastolic (congestive) heart failure (Chronic) I50.33 Anemia (Chronic) D64.9 Chest pain (Resolved) R07.[address] of chest (Inactive) R93.8 Acute inferior myocardial infarction (Inactive) Onset Date: 04/07/19 I21.19 Cellulitis (Inactive) L03.90 Coumadin-induced coagulopathy (Inactive) Delayed wound healing T14.8XXD Dyspnea on exertion (Inactive) R06.09 Edema, lower extremity (Inactive) R60.0 Generalized weakness (Inactive) Hypokalemia (Inactive) E87.6 Localized edema (Inactive) R60.0 Pain in left leg (Inactive) M79.605 Pain in right leg (Inactive) M79.604 Shortness of breath (Inactive) R06.02 Symptomatic anemia (Inactive) D64.9 Weakness (Inactive) R53.1 Allergies amlodipine besylate [From Norvasc] Allergy (Verified 06/24/20 10:06) Unknown ceftriaxone Allergy (Verified 06/24/20 10:06) Rash doxazosin [From Cardura] Allergy (Verified 06/24/20 10:06) Unknown doxazosin mesylate [From Cardura] Allergy (Verified 06/24/20 10:06) Other VEINS TURNED RED doxycycline Allergy (Verified 06/24/20 10:06) Unknown Pt doesn't remember enalapril maleate [From Vasotec] Allergy (Verified 06/24/20 10:06) Rash enalaprilat dihydrate [From Vasotec] Allergy (Verified 06/24/20 10:06) Rash hydroxyzine HCl [From Vistaril] Allergy (Verified 06/24/20 10:06) Rash hydroxyzine pamoate [From Vistaril] Allergy (Verified 06/24/20 10:06) Rash meperidine HCl [From Demerol] Allergy (Verified 06/24/20 10:06) Rash Sulfa (Sulfonamide Antibiotics) Allergy (Verified 06/24/20 10:06) Hives sulfamethoxazole [From Bactrim] Allergy (Verified 06/24/20 10:06) Hives trimethoprim [From Bactrim] Allergy (Verified 06/24/20 10:06) Hives losartan Adverse Reaction (Unknown, Verified 06/24/20 10:06) Unknown Home Medications: Ambulatory Orders Medication Instructions Recorded Aspirin E.C. [Ecotrin] 81 mg PO DAILY@0800 #30 tab 04/09/19 Atorvastatin Calcium [Lipitor] 40 mg PO QHS #30 tab 04/09/19 metoprolol tartrate 50 mg tablet 50 mg PO BID 12/04/19 Furosemide 40 mg PO DAILY 04/30/20 Potassium Chloride [K-Tab ER] 20 meq PO DAILY 04/30/20 Spironolactone 25 mg PO DAILY 04/30/20 Prednisone 5 mg PO DAILY 06/24/20 Surgical History: Surgical History (Last Reviewed 05/20/20 @ 10:14 by Gosia BEGUM, PA) History of cardiac radiofrequency ablation (RFA) (Resolved) Onset Date: 01/09/17 Z98.890 Convergent hybrid Lt Atrial Ablation 01/12/17 S/P laparoscopic cholecystectomy (Resolved) Z90.49 h/o left foot surgery (Resolved) S/P PICC central line placement (Resolved) Z95.828 Status post laparoscopic [place] fundoplication (Resolved) Z98.890 History of patent ductus arteriosus (Resolved) Z87.74 closure History of hysterectomy (Resolved) Z90.710 History of removal of skin mole (Resolved) Z98.890, Z87.2 History of lymph node excision (Resolved) Z98.890 x 2 H/O skin graft (Resolved) Z98.890 08/01/18 @ [facility] History of loop recorder (Resolved) Onset Date: 01/09/17 Z98.890 History of coronary artery stent placement (Resolved) Onset Date: 04/07/19 Z95.5 PCI-thrombectomy and BMS- Distal RCA w/ 3.0 x 16 mm Rebel Stent 04/07/19 Surgical History: cataract, cholecystectomy, hysterectomy, - Psychiatric History: Depression 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 Lives: Spouse/ Significant Other Smoking Status: Never smoker Alcohol: None Drugs: None - *Family History Maternal Family History: Family History (Last Reviewed 05/20/20 @ 10:14 by Gosia Lawson PA, PA) Mother Diabetes Brother Diabetes Myocardial infarction Cancer Son Hypertension Daughter Arthritis Diabetes Hypertension Brother Cancer History Items: No pertinent history Paternal Family History: Family History (Last Reviewed 05/20/20 @ 10:14 by Gosia Lawson PA, PA) Mother Diabetes Brother Diabetes Myocardial infarction Cancer Son Hypertension Daughter Arthritis Diabetes Hypertension Brother Cancer History Items: No pertinent history Review of Systems Constitutional: Denies: Anorexia, Chills, Fever, Night Sweats, Malaise, Weakness, Weight Change, Fatigue Eyes: Denies: Blurred vision, Drainage, Eyelid Inflammation, Pain, Redness, Vision Change HEENT: Denies: Difficulty Hearing, Difficulty Swallowing, Head Aches, Nasal bleeding, Nasal Congestion, Post Nasal Drip, Sinus Congestion, Sinus Drainage, Sore Throat, Visual Changes Cardiovascular: Reports: Edema - R LE only. Denies: Chest Pain, Claudication, Chest Pressure, Chest Tightness, Heaviness, Light Headedness, Orthopnea, Palpitations, Paroxysmal Noc. Dyspnea, Syncope Respiratory: Denies: Cough, Hemoptysis, Pleuritic Pain, Shortness of Breath, Shortness of breath at rest, Shortness of breath upon exertion, Sputum production, Wheezing Gastrointestinal: Denies: Abdominal Pain, Constipation, Diarrhea, Dyspepsia, Hematemesis, Hematochezia, Nausea, Melena, Vomiting Genitourinary: Denies: Dysuria, Frequency, Hematuria, Hesitancy, Incontinence, Nocturia, Retention, Urgency Musculoskeletal: Reports: Foot Pain - R LE, Leg Pain - R LE. Denies: Back Pain, Joint Pain, Joint stiffness, Joint swelling, Joint Tenderness, Muscle pain, Neck Pain Skin: Denies: Dryness, Jaundice, Lesions, Pruritis, Rash, Skin Changes, Wounds Neurological: Denies: Balance problems, Blurred vision, Double vision, Change in Speech, Slurred speech, Confusion, Difficulty swallowing, Focal weakness, Headaches, Incoordination, Numbness, Tingling, Tremor, Seizures Psychiatric: Denies: Anxiety, Depression Endocrine: Denies: Change in Body Habitus, Heat/ Cold Intolerance, Polydipsia, Polyuria Hematologic/ Lymphatic: Denies: Adenopathy, Anemia, Easy Bruising, Easy Bleeding, Petechiae, Purpura VTE Information - Inpt Only VTE Present on Admission: No VTE Mechan Device Prophylaxis: None VTE Pharm Prophylaxis ordered?: Yes Patient Problems: Active and Suspected Problems (Last Reviewed 05/20/20 @ 10:14 by Gosia Lawson PA, PA) Severe sepsis (Acute) Cellulitis of right lower limb (Acute) Elevated serum creatinine (Acute) Sinus tachycardia seen on nuclear monitoring technician (Acute) - Physical Exam Vitals/I&O's: Vital Signs Temp Pulse Resp BP Pulse Ox 98.2 F 84 17 127/79 H 94 06/24/20 12:14 06/24/20 12:14 06/24/20 12:14 06/24/20 12:14 06/24/20 12:14 Oxygen Delivery Method Room Air Weight: 94.347 kg Body Mass Index (BMI) 38.0 Finger Stick Blood Glucose 124 General: Alert, Oriented x3, Cooperative, No apparent distress, Well developed, Well nourished, - - older WF lying in bed, appears comfortable and non-toxic, at bedside HEENT: Atraumatic, PERRLA, EOMI, Normocephalic, EAC Clear Oral: Moist Mucosa, No Gingival or Mucosal Lesions/ Ulcerations, - - upper and lower dentures in place Neck: No JVD, Negative Carotid Bruits, Negative Hepatojugular Reflux, No Nodes, Trachea Midline, Thyroid Normal Size and Texture Lungs: Clear to auscultation, Normal air movement, No rhonchi, No wheeze, No rales Cardiovascular: Regular rate, Normal S1, Normal S2, No murmurs, No rub noted, No Gallop, - - irreg rhythm Abdomen: Bowel Sounds Present, Soft, Non Tender, Non-Distended, No Hepato- splenomegaly, Obese, No hernias noted Extremities: No clubbing, No cyanosis, Capillary Refill Less than 3 Seconds, Diminished Peripheral Pulses - 1+ B UE and LE, Edema - R LE Skin: No rashes, - - R LE with erythema, tenderness and edema from toes to mid calf region, 2 fluctuant areas at lateral R distal LE at old graft site--> pt states that these are chronic, Plantar surface of foot with callused area at area of 2nd metatarsal that feels fluctuant and is VERY tender, sig varicosity B LE Musculoskeletal: No Muscle Wasting, Arthritic Changes, Tenderness - R LE-distal Lymphatic: No Cervical, Supraclavicular, or Inguinal Adenopathy Neurological: Cranial nerves II-XII grossly intact, Deep Tendon Reflexes 2+/4 and Symmetrical, Neuro grossly intact, Motor Exam 5/5 strength throughout, Muscle tone normal, Coordination normal, - - R LE hypersensitive Psych/Mental Status: Normal Affect, Appropriate, Alert and oriented to time, place, person, mood and affect Laboratory Results 06/24/20 10:37: WBC 13.4 H, RBC 5.02, Hgb 15.4 H, Hct 48.5 H, MCV 96.6, MCH 30.7, MCHC 31.8 L, RDW Std Deviation 53.6 H, RDW Coeff of [place] 15.3 H, Plt Count 128 L, MPV 11.0, Immature Gran % (Auto) 0.600, Neut % (Auto) 81.8 H, Lymph % (Auto) 8.4 L, [place] % (Auto) 9.0, Eos % (Auto) 0.1, Baso % (Auto) 0.1, Absolute Neuts (auto) 11.0 H, Absolute Lymphs (auto) 1.12, Nucleated RBC % 0 06/24/20 10:37: Sodium 138, Potassium 3.7, Chloride 104, Carbon Dioxide 28.0, Anion Gap 6, BUN 26 H, Creatinine 1.27 H, Estim Creat Clear Calc 31.20, Est GFR (MDRD) Af Amer 53 L, Est GFR (MDRD) Non-Af 44 L, BUN/Creatinine Ratio 20.5 H, Glucose 164 H, Calcium 9.7 06/24/20 10:37: Lactic Acid 2.2 H* Current Medications Levofloxacin (Levaquin Iv) 750 mg in 150 mls @ 100 mls/hr IV X1 ONE Stop: 06/24/20 13:10 Last Admin: 06/24/20 12:40 Dose: 100 mls/hr Documented by: Vancomycin HCl 2,000 mg/ (Sodium Chloride) 540 mls @ 250 mls/hr IV X1 ONE Stop: 06/24/20 14:39 Assessment/Plan All Active Problems (Last Reviewed 05/20/20 @ 10:14 by Gosia Lawson PA, PA) Severe sepsis (Acute) Cellulitis of right lower limb (Acute) Elevated serum creatinine (Acute) Sinus tachycardia seen on nuclear monitoring technician (Acute) Swelling of right upper extremity (Acute) GI bleeding (Resolved) Hypersomnia (Resolved) History of cardiac radiofrequency ablation (RFA) (Resolved 01/09/17) Ulcer of right lower extremity with fat layer exposed (Resolved) S/P laparoscopic cholecystectomy (Resolved) h/o left foot surgery (Resolved) S/P PICC central line placement (Resolved) Status post laparoscopic [place] fundoplication (Resolved) History of patent ductus arteriosus (Resolved) History of hysterectomy (Resolved) History of removal of skin mole (Resolved) History of lymph node excision (Resolved) H/O skin graft (Resolved) Cardiogenic shock (Resolved 04/07/19) 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) History of loop recorder (Resolved 01/09/17) History of coronary artery stent placement (Resolved 04/07/19) Junctional rhythm (Resolved) Atrial fibrillation with RVR (Resolved) Chest pain (Resolved) Severe Sepsis 2/2 R LE Cellulitis -Sepsis order set -Vanc and Zosyn for now -vanc level in am with CKD -Blood cx pending -Check MRSA DNA PCR -CT of RLE as she has some areas that are questionable fluctuance and tenderness -PCT -ICU with consult to CCM Leukocytosis -see above Lactic Acidosis -cycle -hydration -hold home lasix and Aldactone for today Permanent A-fib -Continue home metoprolol -not on OAC 2/2 h/o bleeding -has implanted loop recorder CKD stage 3 -sCr is a baseline -IVF with Sepsis protocol -repeat in am DM2 -check A1c -per home meds list pt is on no home meds for DM HPL/HTN/HFpEF compensated/CAD -continue statin -continue BB -hold aldactone and lasix for now -ECHO from 2018 showed EF 55% with CHARLETTE, Mild MV insufficiency, Mod TR, mild aortic root dilation, RVSP 57 -STEMI 03/2019 with PCI to distal RCA with BMS -continue ASA, pt is now of Plavix as of recently PAH -ECHO from 2018 shows RVSP 57mmhg -hold lasix for now giving hydration -suspect will be able to restart tomorrow Depression -takes no home meds Sarcoidosis -suspected renal involvement -on chronic steroids -? lung involvement with PAH Obesity -BMI 38 -recommend wgt loss H/O B LE Ulcers -resolved DVT prophylaxis Lovenox daily Code status Full Inpatient E&M: 43848 Init Hosp L3
--- NOTE | 2020-06-24 13:35 | NURSING ---
ICU 6 ZAY CELLULITIS
--- NOTE | 2020-06-24 14:41 | CT_ITS ---
STUDY: CT SCAN LOWER EXTREMITY RIGHT REASON FOR EXAM: Female, 74 years old. RLE PAIN, REDNESS, SWELLING STARTED 1 WEEK AGO. STARTED IN TOES MOVED UP TO MID CALF. HAD ULCERS ON RLE THAT HAS SINCE RESOLVED RADIATION DOSAGE (If Supplied By Facility): CTDIvol = ( 6.13 ) mGy, DLP = ( 256.21 ) mGycm. Individualized dose optimization techniques were used for this CT.? TECHNIQUE: Multiple axial tomographic images were obtained from the knee joint down to the ankle joint without intravenous contrast administration. COMPARISON: None. FINDINGS: There is evidence of a subcutaneous edema with skin thickening suggestive of a cellulitis. No discrete fluid or solid collection is seen. There is evidence of vascular calcification. CT/Extremity Lower without Contra IMPRESSION: Findings suggestive of cellulitis. No evidence of abscess. No discrete fluid collection is seen. Electronically Signed: Carlos Cai, at 15:47 EDT , Service support ,
[2020-06-24 14:42] LABS: Reflex Lactate? Y
[2020-06-24 15:31] LABS: Lactic Acid 1.5 mmol/L (0.4-1.9)
--- NOTE | 2020-06-24 15:52 | CON.PCM_ITS ---
Problem List (1) Severe sepsis Status: Acute (2) Cellulitis of right lower limb Status: Acute (3) Sinus tachycardia seen on equipment monitor phototypesetting Status: Acute (4) Sick sinus syndrome Status: Chronic (5) Type 2 diabetes mellitus Status: Chronic Qualifiers: (6) Spinal stenosis of lumbar region with radiculopathy Status: Chronic (7) Venous stasis ulcer of left lower leg with edema of left lower leg Status: Chronic (8) Venous stasis ulcer of right lower leg with edema of right lower leg Status: Chronic (9) LYN (obstructive sleep apnea) Status: Chronic (10) GERD (gastroesophageal reflux disease) Status: Chronic (11) Calcinosis Status: Chronic (12) PAOD (peripheral arterial occlusive disease) Status: Chronic (13) Depression Status: Chronic (14) Status post laparoscopic [place] fundoplication Status: Resolved (15) Sarcoidosis Status: Chronic (16) History of patent ductus arteriosus Status: Resolved Comment: closure (17) History of hysterectomy Status: Resolved (18) History of removal of skin mole Status: Resolved (19) History of lymph node excision Status: Resolved Comment: x 2 (20) H/O skin graft Status: Resolved Comment: 08/01/[facility] (21) MRSA (methicillin resistant staph aureus) culture positive Status: Chronic (22) Thyroid nodule Status: Chronic (23) 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 Status: Acute (24) History of ST elevation myocardial infarction (STEMI) Status: Chronic (25) Secondary pulmonary arterial hypertension Status: Chronic (26) Atherosclerosis of coronary artery of [place] heart without angina pectoris Status: Chronic (27) Chronic atrial fibrillation Status: Chronic (28) Chronic kidney disease, stage 3 Status: Chronic (29) snf current use of anticoagulant Status: Chronic Reason for Consult Date of Consultation: 06/24/20 Reason for Consultation: Sepsis History of Present Illness: The patient is a 74 year old F, with past medical history listed below and well- known to me from the outpatient office, who presented to [facility] on 06/24/2020 secondary to right lower extremity pain and swelling. Patient did not report any concomitant fever or chills, but states it has been progressive. Patient denied any respiratory symptoms, chest pain or focal neurologic deficits. Patient does have a history of chronic wound infections and follows with Dr. Dee of podiatry secondary to foot issues. Patient does have a history of allergies to penicillin and Bactrim. In the ER, patient was noted to have a leukocytosis with some hemoconcentration. Patient also had an elevated lactate at 2.2. Blood cultures were ordered. There is chronic renal insufficiency noted. Patient had a well score of 2. Patient was given clindamycin and vancomycin. Patient was admitted to the intensive care unit for further evaluation. Patient has been tachycardic throughout her hospitalization, but this did improve with fluid challenge. Patient was never hypotensive in the ER and does not report any bleeding complications. In the intensive care unit, patient has remained hemodynamically stable. Patient did go down to CAT scan for an evaluation of the lower extremity secondary to concerns for possible gas organisms. Patient states that she feels subjectively improved since being admitted. Patient is very clear that she did not have any respiratory symptoms, fever, chills, nausea or vomiting. Patient does report that the lower extremity redness has been progressing over the last 7 days. Patient is unclear why she did not call anyone. Review of systems otherwise negative from a constitutional, HEENT, respiratory, cardiovascular, GI, genitourinary, musculoskeletal, skin, neurologic, psychiatric and hematologic system unless stated above. Past Medical History Past Medical History (Chronic Problems): Chronic Problems (Last Reviewed 05/20/20 @ 10:14 by Gosia BEGUM, PA) Sinus pause (Chronic) Sick sinus syndrome (Chronic) Status post placement of implantable loop recorder (Chronic) Type 2 diabetes mellitus (Chronic) Lung nodule (Chronic) 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) Venous stasis ulcer of left lower leg with edema of left lower leg (Chronic) Venous stasis ulcer of right lower leg with edema of right lower leg (Chronic) Arthralgia (Chronic) Myalgia (Chronic) Mass of soft tissue of left lower extremity (Chronic) left inner upper thigh - ? calciphylaxis vs. erythema nodosum vs. dermatomyositis vs. panniculitis Mass of soft tissue of right lower extremity (Chronic) right inner upper thigh - ? calciphylaxis vs. erythema nodosum vs. dermatomyositis vs. panniculitis LYN (obstructive sleep apnea) (Chronic) GERD (gastroesophageal reflux disease) (Chronic) Calcinosis (Chronic) Recurrent falls (Chronic) PAOD (peripheral arterial occlusive disease) (Chronic) Depression (Chronic) Neuropathic pain (Chronic) Ulcer of left lower extremity with fat layer exposed (Chronic) Calciphylaxis (Chronic) Venous insufficiency (chronic) (peripheral) (Chronic) Sarcoidosis (Chronic) MRSA (methicillin resistant staph aureus) culture positive (Chronic) Bradycardia by electrocardiogram (Chronic) Thyroid nodule (Chronic) History of ST elevation myocardial infarction (STEMI) (Chronic 04/07/19) 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) Essential (primary) hypertension (Chronic) Secondary pulmonary arterial hypertension (Chronic) Atherosclerosis of coronary artery of [place] heart without angina pectoris (Chronic) Chronic atrial fibrillation (Chronic) Chronic kidney disease, stage 3 (Chronic) Acute on chronic diastolic (congestive) heart failure (Chronic) Anemia (Chronic) 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 (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) Medical History: Medical History (Last Reviewed 05/20/20 @ 10:14 by Gosia Lawson PA, PA) Sinus pause (Chronic) I45.5 Sick sinus syndrome (Chronic) I49.5 Status post placement of implantable loop recorder (Chronic) Z95.818 GI bleeding (Resolved) K92.2 Type 2 diabetes mellitus (Chronic) E11.9 Lung nodule (Chronic) R91.1 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) M48.061, M54.16 Venous stasis ulcer of left lower leg with edema of left lower leg (Chronic) I83.892, I83.028, R60.9 Venous stasis ulcer of right lower leg with edema of right lower leg (Chronic) I83.891, I83.018, R60.9 Arthralgia (Chronic) M25.50 Myalgia (Chronic) M79.1 Mass of soft tissue of left lower extremity (Chronic) R22.42 left inner upper thigh - ? calciphylaxis vs. erythema nodosum vs. dermatomyositis vs. panniculitis Mass of soft tissue of right lower extremity (Chronic) R22.41 right inner upper thigh - ? calciphylaxis vs. erythema nodosum vs. dermatomyositis vs. panniculitis Hypersomnia (Resolved) G47.10 LYN (obstructive sleep apnea) (Chronic) G47.33 GERD (gastroesophageal reflux disease) (Chronic) K21.9 Calcinosis (Chronic) E83.59 Recurrent falls (Chronic) R29.6 PAOD (peripheral arterial occlusive disease) (Chronic) I77.9 Depression (Chronic) F32.9 Neuropathic pain (Chronic) M79.2 Ulcer of right lower extremity with fat layer exposed (Resolved) L97.912 Ulcer of left lower extremity with fat layer exposed (Chronic) L97.922 Calciphylaxis (Chronic) E83.59 Venous insufficiency (chronic) (peripheral) (Chronic) I87.2 Sarcoidosis (Chronic) D86.9 MRSA (methicillin resistant staph aureus) culture positive (Chronic) Z22.322 Cardiogenic shock (Resolved) Onset Date: 04/07/19 R57.0 Bradycardia by electrocardiogram (Chronic) R00.1 Thyroid nodule (Chronic) E04.1 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) E05.[address] elevation myocardial infarction (STEMI) (Chronic) Onset Date: 04/07/19 I25.2 Old inferior wall myocardial infarction (Chronic) Onset Date: 04/07/19 I25.2 Essential (primary) hypertension (Chronic) I10 Secondary pulmonary arterial hypertension (Chronic) I27.21 Atherosclerosis of coronary artery of [place] heart without angina pectoris (Chronic) I25.10 Chronic atrial fibrillation (Chronic) I48.2 Junctional rhythm (Resolved) I49.8 Chronic kidney disease, stage 3 (Chronic) N18.3 Acute on chronic diastolic (congestive) heart failure (Chronic) I50.33 Anemia (Chronic) D64.9 Chest pain (Resolved) R07.[address] of chest (Inactive) R93.8 Acute inferior myocardial infarction (Inactive) Onset Date: 04/07/19 I21.19 Cellulitis (Inactive) L03.90 Coumadin-induced coagulopathy (Inactive) Delayed wound healing T14.8XXD Dyspnea on exertion (Inactive) R06.09 Edema, lower extremity (Inactive) R60.0 Generalized weakness (Inactive) Hypokalemia (Inactive) E87.6 Localized edema (Inactive) R60.0 Pain in left leg (Inactive) M79.605 Pain in right leg (Inactive) M79.604 Shortness of breath (Inactive) R06.02 Symptomatic anemia (Inactive) D64.9 Weakness (Inactive) R53.1 Allergies amlodipine besylate [From Norvasc] Allergy (Verified 06/24/20 10:06) Unknown ceftriaxone Allergy (Verified 06/24/20 10:06) Rash doxazosin [From Cardura] Allergy (Verified 06/24/20 10:06) Unknown doxazosin mesylate [From Cardura] Allergy (Verified 06/24/20 10:06) Other VEINS TURNED RED doxycycline Allergy (Verified 06/24/20 10:06) Unknown Pt doesn't remember enalapril maleate [From Vasotec] Allergy (Verified 06/24/20 10:06) Rash enalaprilat dihydrate [From Vasotec] Allergy (Verified 06/24/20 10:06) Rash hydroxyzine HCl [From Vistaril] Allergy (Verified 06/24/20 10:06) Rash hydroxyzine pamoate [From Vistaril] Allergy (Verified 06/24/20 10:06) Rash meperidine HCl [From Demerol] Allergy (Verified 06/24/20 10:06) Rash Sulfa (Sulfonamide Antibiotics) Allergy (Verified 06/24/20 10:06) Hives sulfamethoxazole [From Bactrim] Allergy (Verified 06/24/20 10:06) Hives trimethoprim [From Bactrim] Allergy (Verified 06/24/20 10:06) Hives losartan Adverse Reaction (Unknown, Verified 06/24/20 10:06) Unknown Home Medications: Ambulatory Orders Medication Instructions Recorded Aspirin E.C. [Ecotrin] 81 mg PO DAILY@0800 #30 tab 04/09/19 Atorvastatin Calcium [Lipitor] 40 mg PO QHS #30 tab 04/09/19 metoprolol tartrate 50 mg tablet 50 mg PO BID 12/04/19 Furosemide 40 mg PO DAILY 04/30/20 Potassium Chloride [K-Tab ER] 20 meq PO DAILY 04/30/20 Spironolactone 25 mg PO DAILY 04/30/20 Miglitol 25 mg PO DINNER 06/24/20 Prednisone 5 mg PO DAILY 06/24/20 Surgical History: Surgical History (Last Reviewed 05/20/20 @ 10:14 by Gosia BEGUM, PA) History of cardiac radiofrequency ablation (RFA) (Resolved) Onset Date: 01/09/17 Z98.890 Convergent hybrid Lt Atrial Ablation 01/12/17 S/P laparoscopic cholecystectomy (Resolved) Z90.49 h/o left foot surgery (Resolved) S/P PICC central line placement (Resolved) Z95.828 Status post laparoscopic [place] fundoplication (Resolved) Z98.890 History of patent ductus arteriosus (Resolved) Z87.74 closure History of hysterectomy (Resolved) Z90.710 History of removal of skin mole (Resolved) Z98.890, Z87.2 History of lymph node excision (Resolved) Z98.890 x 2 H/O skin graft (Resolved) Z98.890 08/01/18 @ [facility] History of loop recorder (Resolved) Onset Date: 01/09/17 Z98.890 History of coronary artery stent placement (Resolved) Onset Date: 04/07/19 Z95.5 PCI-thrombectomy and BMS- Distal RCA w/ 3.0 x 16 mm Rebel Stent 04/07/19 Surgical History: cataract, cholecystectomy, hysterectomy, - Psychiatric History: Depression PRIMARY HEALTH CARE NURSE History: No pertinent PRIMARY HEALTH CARE NURSE history Lives: Spouse/ Significant Other Smoking Status: Never smoker Tobacco Use: Non-smoker, Secondhand Alcohol: None Drugs: None - *Family History Maternal Family History: Family History (Last Reviewed 05/20/20 @ 10:14 by Gosia BEGUM, PA) Mother Diabetes Brother Diabetes Myocardial infarction Cancer Son Hypertension Daughter Arthritis Diabetes Hypertension Brother Cancer History Items: No pertinent history Paternal Family History: Family History (Last Reviewed 05/20/20 @ 10:14 by Gosia BEGUM, PA) Mother Diabetes Brother Diabetes Myocardial infarction Cancer Son Hypertension Daughter Arthritis Diabetes Hypertension Brother Cancer History Items: No pertinent history Review of Systems Comment: See HPI Patient Problems: Active and Suspected Problems (Last Reviewed 05/20/20 @ 10:14 by Gosia BEGUM, PA) Severe sepsis (Acute) Cellulitis of right lower limb (Acute) Elevated serum creatinine (Acute) Sinus tachycardia seen on equipment monitor phototypesetting (Acute) Objective: CT of the leg was personally reviewed. This does not appear to show any gas or fluid collection. There is evidence of cellulitis and vascular calcification. Patient does have a history of restrictive lung disease with decreased DLCO, but does not require supplemental oxygen at baseline. Patient's last echocardiogram in June 2019 shows an EF of 55% with moderate mitral annular calcification and a right ventricular systolic pressure of 57 mmHg. - Physical Exam Vitals/I&O's: Vital Signs Temp Pulse Resp BP Pulse Ox 36.1 C L 103 H 15 117/62 100 06/24/20 14:28 06/24/20 15:06 06/24/20 15:00 06/24/20 15:00 06/24/20 15:00 Oxygen Delivery Method Room Air Weight: 86.8 kg Body Mass Index (BMI) 34.9 Finger Stick Blood Glucose 124 Intake and Output for Last 24 Hours 06/22/20 06/23/20 06/24/20 23:59 23:59 23:59 Intake Total 150 / 150 Balance 150 / 150 General: Alert, Oriented x3, Cooperative, No apparent distress, - - Speaking in full sentences. HEENT: Atraumatic, PERRLA, EOMI, Normocephalic, - - No scleral icterus or injection noted Oral: Moist Mucosa, No Gingival or Mucosal Lesions/ Ulcerations Neck: Supple, No Nodes, Trachea Midline, JVD, Right Lungs: Clear to auscultation, Normal air movement, No rhonchi, No wheeze, No rales Cardiovascular: Normal S1, Normal S2, No murmurs, Irregular Rate, No rub noted, No Gallop, Tachycardic Abdomen: Bowel Sounds Present, Soft, Non Tender, Non-Distended, Obese Extremities: No clubbing, No cyanosis, - - Hammertoes noted. Right lower extremity with erythema, tenderness and edema to the mid calf. This has been marked. Patient does have plantar callus Skin: - - See extremity exam. Patient does have skin grafts in the area. Musculoskeletal: Tenderness - Exquisite tenderness to palpation of the right lower extremity Lymphatic: No Cervical, Supraclavicular, or Inguinal Adenopathy Neurological: Cranial nerves II-XII grossly intact, Neuro grossly intact, Motor Exam 5/5 strength throughout Psych/Mental Status: Alert and oriented to time, place, person, mood and affect Laboratory Results 06/24/20 10:37: WBC 13.4 H, RBC 5.02, Hgb 15.4 H, Hct 48.5 H, MCV 96.6, MCH 30.7, MCHC 31.8 L, RDW Std Deviation 53.6 H, RDW Coeff of Heike 15.3 H, Plt Count 128 L, MPV 11.0, Immature Gran % (Auto) 0.600, Neut % (Auto) 81.8 H, Lymph % (Auto) 8.4 L, Parker % (Auto) 9.0, Eos % (Auto) 0.1, Baso % (Auto) 0.1, Absolute Neuts (auto) 11.0 H, Absolute Lymphs (auto) 1.12, Nucleated RBC % 0 06/24/20 10:37: Sodium 138, Potassium 3.7, Chloride 104, Carbon Dioxide 28.0, Anion Gap 6, BUN 26 H, Creatinine 1.27 H, Estim Creat Clear Calc 31.20, Est GFR (MDRD) Af Amer 53 L, Est GFR (MDRD) Non-Af 44 L, BUN/Creatinine Ratio 20.5 H, Glucose 164 H, Calcium 9.7 06/24/20 10:37: Lactic Acid 2.2 H* 06/24/20 14:50: Lactic Acid 1.5 06/24/20 15:35: MRSA (PCR) Pending Current Medications Acetaminophen (Tylenol) 650 mg PO Q6H PRN PRN PRN Reason: Pain Score 1-10/Temp > 100.7 F Aspirin (Ecotrin) 81 mg PO DAILY@0800 [facility] Atorvastatin Calcium (Lipitor) 40 mg PO QHS [facility] Enoxaparin Sodium (Lovenox) 40 mg SC DAILY [facility] Vancomycin IV Pharmacy to Dose (1 ea/ Sodium Chloride) 500 mls @ 250 mls/hr IV X1 PRN; Protocol PRN Reason: Rx to Dose Piperacillin Sod/Tazobactam (Sod 3.375 gm/ Sodium Chloride) 50 mls @ 12.5 mls/hr IV Q8 [facility] Sodium Chloride () 1,000 mls @ 999 mls/hr IV .Q1H1M [facility]; Protocol Stop: 06/24/20 16:32 Last Admin: 06/24/20 15:33 Dose: Not Given Documented by: Insulin Human Lispro (Humalog Kwikpen (Bkc)) 0 unit SC ACHS [facility]; Protocol Melatonin (Melatonin) 3 mg PO QHS PRN PRN PRN Reason: INSOMNIA Metoprolol Tartrate (Lopressor (Beta Brandt)) 50 mg PO BID [facility] Ondansetron HCl (Zofran) 4 mg IV Q8H PRN PRN PRN Reason: NAUSEA/VOMITING Oxycodone HCl (Oxyir) 5 mg PO Q4H PRN PRN PRN Reason: Pain Score 4-10/10 Prednisone () 5 mg PO DAILY@0800 [facility] Senna/Docusate Sodium (Senokot-S, Gabriella-Colace) 2 tablet PO BID PRN PRN PRN Reason: Constipation Sodium Chloride () 10 - 40 ml IV UD PRN PRN Reason: SALINE FLUSH Clinical Impression(s) from Imaging Studies Lower Extremity CT 06/24/20 14:41 IMPRESSION: Findings suggestive of cellulitis. No evidence of abscess. No discrete fluid collection is seen. Electronically Signed: Carlos Benjaminalexander, at 15:47 EDT , Service support , Assessment/Plan Active and Suspected Problems (Last Reviewed 05/20/20 @ 10:14 by Gosia BEGUM, PA) Severe sepsis (Acute) Cellulitis of right lower limb (Acute) Elevated serum creatinine (Acute) Sinus tachycardia seen on equipment monitor phototypesetting (Acute) RECOMMENDATIONS: 1. Continue with empiric antibiotics for now pending culture data 2. Hold on 3 L fluid bolus 3. Continue to monitor for blood sugar 4. Initiate stress dose steroids if patient becomes hypotensive 5. Possibly move out of the intensive care unit tomorrow 6. Continue BiPAP 15/11 centimeters of water with sleep IMPRESSIONS: 1. Severe sepsis secondary to right lower extremity cellulitis Patient with significant edema noted on CT of the leg. Patient does have multiple complications of this extremity in the past. Reasonable to continue with empiric antibiotics for now pending culture data. Patient has been seen by the wound center previously. Would hold off on fluid boluses patient has remained normotensive, improved lactates and has significant type II pulmonary hypertension. 2. Coagulopathy/atrial fibrillation Patient appears to be doing well at this time. Patient does have marginal control, but is just now being initiated on therapy for right lower extremity cellulitis. Defer to hospitalist on whether cardiology needs to be involved. 3. Sarcoidosis/pulmonary hypertension type II/type III Patient appears to be stable from a respiratory standpoint. Would not change current regimen at this time. If patient were to become hypotensive, initiation of stress dose steroids would be appropriate. 4. Obstructive sleep apnea Recommend continuing BiPAP 15/11 with naps and nightly. [facility] will need to be contacted prior to the patient's discharge from the hospital to address her home machine malfunction. The patient has been noncompliant with use of BiPAP while in the hospital. Strongly suspect outpatient noncompliance with use. 5. Chronic wounds/previous ulcers of bilateral lower extremities The patient is currently being followed in the wound care clinic. The etiology for her ulcers are felt to be secondary to venous insufficiency. Continue local wound care. Continue long-acting OxyContin with oxycodone for breakthrough pain. 6. Obesity/chronic kidney disease/peripheral neuropathy/anxiety Complicates care, management, recovery and prognosis. Physical therapy to continue to work with patient. Inpatient E&M: 32442 Init Hosp L2
[2020-06-24 16:21] LABS: Bedside Glucose 140 mg/dL (70-110)
[2020-06-24 17:34] LABS: Probe Check PASS
[2020-06-24 17:35] LABS: M R Staph aureus DNA By PCR POSITIVE (Negative)
[2020-06-24] MEDS: Metoprolol Tartrate 50 MG Tablet PO (21:50)
[2020-06-24] MEDS: Atorvastatin Calcium 40 MG Tablet PO (21:50)
[2020-06-24] MEDS: Sodium Chloride 0.65% 1 SPRAY SPRAY.BTL NASAL (21:51)
[2020-06-24 22:20] LABS: Bedside Glucose 108 mg/dL (70-110)
[2020-06-25] VITALS (21 sets, daily range): BP systolic 90–151; BP diastolic 58–91; PULSE 64–125; RESP 16–28; TEMP 36.2–36.7; O2SAT 90–95
[2020-06-25 04:33] LABS: Absolute Lymphocyte Count 1.85 X10^3/uL (0.83-4.51); Absolute Neutrophil Count 7.1 X10^3/uL (2.0-7.7); Basophil# 0.03 X10^3/uL; Basophil% 0.3 % (0-1); Eosinophil# 0.04 X10^3/uL; Eosinophils% 0.4 % (0-5); Hematocrit 47.1 % (37-47); Lymphocyte # 1.85 X10^3/ul (4.0); Lymphocyte % 18.1 % (19-41); Mean Corp Hgb Conc 31.8 g/dL (32-36); Mean Corpuscular Hgb 30.5 pg (27.0-32.0); Mean Corpuscular Volume 95.7 fL (81-99); Mean Platelet Vol. 10.9 fl (6.2-12.0); Monocyte# 1.16 X10^3/uL; Monocyte% 11.4 % (0-10); NRBC Flagged by Analyzer 0 % (0-5); Neutrophil # 7.07 X10^3/uL (2.7-7.7); Neutrophil % 69.1 % (47-70); Platelet Count 158 K/mm3 (150-450); RBC Distribution Width CV 15.3 % (11.6-14.6); RBC Distribution Width SD 54.2 fl (35.1-43.9); Red Blood Count 4.92 M/mm3 (4.2-5.4); White Blood Count 10.2 K/mm3 (4.4-11.0)
[2020-06-25 04:48] LABS: Anion Gap 6 (5-15); BUN 22 mg/dL (7-18); BUN/Creat Ratio 16.1 RATIO (10-20); Calcium,Total 9.1 mg/dL (8.5-10.1); Chloride 103 mmol/L (98-107); Creatinine, Serum 1.37 mg/dL (0.55-1.02); EST Glomerular Filtration Rate 40 mL/min (>60); Est Glom Filt Rate - Afr Amer 49 mL/min (>60); Estimated Creatinine Clearance 28.93 ml/min; Glucose 95 mg/dL (74-106); Potassium 3.6 mmol/L (3.5-5.1); Sodium Level 139 mmol/L (136-145)
[2020-06-25] MEDS: 0.9% Saline Lock 10 ML Syringe IV (05:04)
--- NOTE | 2020-06-25 06:58 | PCM.PN.INT ---
Subjective: Patient did well overnight. No hemodynamic instability reported. Patient did not require any fluid boluses. Patient has reported that the pain sensation and inability to walk has recurred this morning. Patient states this is similar to when she first arrived in the ER. Patient is not reporting any other systemic symptoms. No fever has been noted. General: Alert, Oriented x3, Cooperative, No apparent distress, - - Speaking in full sentences HEENT: Atraumatic, PERRLA, EOMI, Normocephalic, - - No scleral icterus or injection noted Oral: Moist Mucosa, No Gingival or Mucosal Lesions/ Ulcerations Neck: Supple, No JVD, No Nodes, Trachea Midline Lungs: No rhonchi, No wheeze, No rales, Diminished Cardiovascular: Normal S1, Normal S2, No murmurs, Irregular Rate, No rub noted, No Gallop, Tachycardic Abdomen: Bowel Sounds Present, Soft, Non Tender, Non-Distended, Obese Extremities: No clubbing, No cyanosis, No edema, - - Right lower extremity shows no progression. Skin: - - See extremities Musculoskeletal: Tenderness - RLE Lymphatic: No Cervical, Supraclavicular, or Inguinal Adenopathy Neurological: Cranial nerves II-XII grossly intact, Neuro grossly intact, Motor Exam 5/5 strength throughout Psych/Mental Status: Alert and oriented to time, place, person, mood and affect Vital Signs Temp Pulse Resp BP Pulse Ox 36.2 C L 96 19 H 116/68 93 06/25/20 04:00 06/25/20 06:00 06/25/20 06:00 06/25/20 06:00 06/25/20 06:00 Oxygen Delivery Method Room Air Weight: 88.3 kg Body Mass Index (BMI) 34.9 Finger Stick Blood Glucose 124 Intake and Output for Last 24 Hours 06/23/20 06/24/20 06/25/20 23:59 23:59 23:59 Intake Total 980 / 980 170 / 170 Output Total 150 / 150 150 / 150 Balance 830 / 830 Labs (Last 48 Hours) 06/24/20 06/24/20 06/24/20 10:37 10:37 10:37 WBC 13.4 H RBC 5.02 Hgb 15.4 H Hct 48.5 H MCV 96.6 MCH 30.7 MCHC 31.8 L RDW Std Deviation 53.6 H RDW Coeff of Heike 15.3 H Plt Count 128 L MPV 11.0 Immature Gran % (Auto) 0.600 Neut % (Auto) 81.8 H Lymph % (Auto) 8.4 L [place] % (Auto) 9.0 Eos % (Auto) 0.1 Baso % (Auto) 0.1 Absolute Neuts (auto) 11.0 H Absolute Lymphs (auto) 1.12 Nucleated RBC % 0 Sodium 138 Potassium 3.7 Chloride 104 Carbon Dioxide 28.0 Anion Gap 6 BUN 26 H Creatinine 1.27 H Estim Creat Clear Calc 31.20 Est GFR (MDRD) Af Amer 53 L Est GFR (MDRD) Non-Af 44 L BUN/Creatinine Ratio 20.5 H Glucose 164 H Hemoglobin A1c Lactic Acid 2.2 H* Calcium 9.7 MRSA (PCR) POC Glucose 06/24/20 06/24/20 06/24/20 14:50 15:35 16:14 WBC RBC Hgb Hct MCV MCH MCHC RDW Std Deviation RDW Coeff of Heike Plt Count MPV Immature Gran % (Auto) Neut % (Auto) Lymph % (Auto) [place] % (Auto) Eos % (Auto) Baso % (Auto) Absolute Neuts (auto) Absolute Lymphs (auto) Nucleated RBC % Sodium Potassium Chloride Carbon Dioxide Anion Gap BUN Creatinine Estim Creat Clear Calc Est GFR (MDRD) Af Amer Est GFR (MDRD) Non-Af BUN/Creatinine Ratio Glucose Hemoglobin A1c Lactic Acid 1.5 Calcium MRSA (PCR) POSITIVE H POC Glucose 140 H 06/24/20 06/25/20 06/25/20 21:53 04:25 04:25 WBC 10.2 RBC 4.92 Hgb 15.0 Hct 47.1 H MCV 95.7 MCH 30.5 MCHC 31.8 L RDW Std Deviation 54.2 H RDW Coeff of Heike 15.3 H Plt Count 158 MPV 10.9 Immature Gran % (Auto) 0.700 Neut % (Auto) 69.1 Lymph % (Auto) 18.1 L [place] % (Auto) 11.4 H Eos % (Auto) 0.4 Baso % (Auto) 0.3 Absolute Neuts (auto) 7.1 Absolute Lymphs (auto) 1.85 Nucleated RBC % 0 Sodium 139 Potassium 3.6 Chloride 103 Carbon Dioxide 30.0 Anion Gap 6 BUN 22 H Creatinine 1.37 H Estim Creat Clear Calc 28.93 Est GFR (MDRD) Af Amer 49 L Est GFR (MDRD) Non-Af 40 L BUN/Creatinine Ratio 16.1 Glucose 95 Hemoglobin A1c Lactic Acid Calcium 9.1 MRSA (PCR) POC Glucose 108 06/25/20 04:25 WBC RBC Hgb Hct MCV MCH MCHC RDW Std Deviation RDW Coeff of Heike Plt Count MPV Immature Gran % (Auto) Neut % (Auto) Lymph % (Auto) [place] % (Auto) Eos % (Auto) Baso % (Auto) Absolute Neuts (auto) Absolute Lymphs (auto) Nucleated RBC % Sodium Potassium Chloride Carbon Dioxide Anion Gap BUN Creatinine Estim Creat Clear Calc Est GFR (MDRD) Af Amer Est GFR (MDRD) Non-Af BUN/Creatinine Ratio Glucose Hemoglobin A1c Pending Lactic Acid Calcium MRSA (PCR) POC Glucose Clinical Impression(s) from Imaging Studies Lower Extremity CT 06/24/20 14:41 IMPRESSION: Findings suggestive of cellulitis. No evidence of abscess. No discrete fluid collection is seen. Electronically Signed: Carlos Cai, at 15:47 EDT , Service support , Medical Necessity - Tobacco Use Smoking Status: Never smoker Tobacco Use: Non-smoker, Secondhand Assessment/Plan All Active Problems (Last Reviewed 05/20/20 @ 10:14 by Gosia Lawson PA, PA) Severe sepsis (Acute) Cellulitis of right lower limb (Acute) Elevated serum creatinine (Acute) Sinus tachycardia seen on monitor technician (Acute) Swelling of right upper extremity (Acute) GI bleeding (Resolved) Hypersomnia (Resolved) History of cardiac radiofrequency ablation (RFA) (Resolved 01/09/17) Ulcer of right lower extremity with fat layer exposed (Resolved) S/P laparoscopic cholecystectomy (Resolved) h/o left foot surgery (Resolved) S/P PICC central line placement (Resolved) Status post laparoscopic [place] fundoplication (Resolved) History of patent ductus arteriosus (Resolved) History of hysterectomy (Resolved) History of removal of skin mole (Resolved) History of lymph node excision (Resolved) H/O skin graft (Resolved) Cardiogenic shock (Resolved 04/07/19) 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 Continue with empiric antibiotics for now pending culture data 2. Encourage BiPAP if extended stay 3. Continue to monitor for blood sugar 4. Initiate stress dose steroids if patient becomes hypotensive 5. Hemodynamically stable on room air. Will sign off from a critical care perspective 6. Continue BiPAP 15/11 centimeters of water with sleep IMPRESSIONS: 1. Severe sepsis secondary to right lower extremity cellulitis Patient with stable edema noted on CT of the leg. Patient does have multiple complications of this extremity in the past. Reasonable to continue with empiric antibiotics for now pending culture data. Patient has been seen by the wound center previously. Patient currently hemodynamically stable on room air. Will sign off from a critical care perspective. 2. Coagulopathy/atrial fibrillation Patient appears to be doing well at this time. Patient does have marginal control, but is just now being initiated on therapy for right lower extremity cellulitis. Patient appears to be stable from a cardiac standpoint. 3. Sarcoidosis/pulmonary hypertension type II/type III Patient appears to be stable from a respiratory standpoint. Would not change current regimen at this time. If patient were to become hypotensive, initiation of stress dose steroids would be appropriate. 4. Obstructive sleep apnea Recommend continuing BiPAP 15/11 with naps and nightly. Patient should be continued on home Bipap if extended stay anticipated. The patient has been noncompliant with use of BiPAP while in the hospital. Strongly suspect outpatient noncompliance with use. 5. Chronic wounds/previous ulcers of bilateral lower extremities The patient is currently being followed in the wound care clinic. The etiology for her ulcers are felt to be secondary to venous insufficiency. Continue local wound care. Continue long-acting OxyContin with oxycodone for breakthrough pain. 6. Obesity/chronic kidney disease/peripheral neuropathy/anxiety Complicates care, management, recovery and prognosis. Physical therapy to continue to work with patient. Inpatient E&M: 26469 [facility] Hosp L2
[2020-06-25] MEDS: oxyCODONE 5 MG Tablet PO (08:04)
[2020-06-25] MEDS: Aspirin E.C. 81 MG Tablet PO (08:05)
[2020-06-25] MEDS: predniSONE 5 MG Tablet PO (08:05)
[2020-06-25 08:19] LABS: Hemoglobin A1c 7.9 % (3.8-5.6)
[2020-06-25 08:26] LABS: Bedside Glucose 111 mg/dL (70-110)
--- NOTE | 2020-06-25 08:50 | PCM.PROGNOTE ---
Patient Problems: Active and Suspected Problems (Last Updated 06/25/20 @ 08:[address] Myrna Holland MD) Severe sepsis (Acute) Cellulitis of right lower limb (Acute) Subjective: Chief complaint: Follow-up after admission for severe sepsis secondary to acute right lower extremity cellulitis. Patient seen and examined. No acute events overnight. She complains of pain on the right leg. Denied fever or chills. Denied cough or sputum production. Her vital signs are stable, afebrile. - Physical Exam Vitals/I&O's: Vital Signs Temp Pulse Resp BP Pulse Ox 97.2 F L 105 H 16 106/68 93 06/25/20 04:00 06/25/20 07:00 06/25/20 07:00 06/25/20 07:00 06/25/20 07:00 Oxygen Delivery Method Room Air Weight: 194 lb 10.691 oz Body Mass Index (BMI) 34.9 Finger Stick Blood Glucose 124 Intake and Output for Last 24 Hours 06/23/20 06/24/20 06/25/20 23:59 23:59 23:59 Intake Total 980 / 980 170 / 170 Output Total 150 / 150 150 / 150 Balance 830 / 830 General: Alert, Oriented x3, Cooperative, No apparent distress HEENT: Atraumatic, PERRLA, EOMI, Normocephalic Oral: Moist Mucosa, No Gingival or Mucosal Lesions/ Ulcerations Neck: Supple, No JVD, Negative Carotid Bruits, Trachea Midline, Thyroid Normal Size and Texture Lungs: Clear to auscultation, Normal air movement, No rhonchi, No wheeze, No rales, Diminished Cardiovascular: Normal S1, Normal S2, PMI Normal, Irregular Rate Abdomen: Bowel Sounds Present, Soft, Non Tender, Non-Distended, No Hepato-splenomegaly, Obese Extremities: No clubbing, No cyanosis, No edema, - - Erythema and swelling of the right leg is improving. Patient has chronic healed leg ulcers, no open wounds. Skin: No rashes, No breakdown Lymphatic: No Cervical, Supraclavicular, or Inguinal Adenopathy Neurological: Cranial nerves II-XII grossly intact, Neuro grossly intact Psych/Mental Status: Normal Affect, Appropriate, Alert and oriented to time, place, person, mood and affect Laboratory Results 06/24/20 10:37: WBC 13.4 H, RBC 5.02, Hgb 15.4 H, Hct 48.5 H, MCV 96.6, MCH 30.7, MCHC 31.8 L, RDW Std Deviation 53.6 H, RDW Coeff of Heike 15.3 H, Plt Count 128 L, MPV 11.0, Immature Gran % (Auto) 0.600, Neut % (Auto) 81.8 H, Lymph % (Auto) 8.4 L, [place] % (Auto) 9.0, Eos % (Auto) 0.1, Baso % (Auto) 0.1, Absolute Neuts (auto) 11.0 H, Absolute Lymphs (auto) 1.12, Nucleated RBC % 0 06/24/20 10:37: Sodium 138, Potassium 3.7, Chloride 104, Carbon Dioxide 28.0, Anion Gap 6, BUN 26 H, Creatinine 1.27 H, Estim Creat Clear Calc 31.20, Est GFR (MDRD) Af Amer 53 L, Est GFR (MDRD) Non-Af 44 L, BUN/Creatinine Ratio 20.5 H, Glucose 164 H, Calcium 9.7 06/24/20 10:37: Lactic Acid 2.2 H* 06/24/20 14:50: Lactic Acid 1.5 06/24/20 15:35: MRSA (PCR) POSITIVE H 06/24/20 16:14: POC Glucose 140 H 06/24/20 21:53: POC Glucose 108 06/25/20 04:25: WBC 10.2, RBC 4.92, Hgb 15.0, Hct 47.1 H, MCV 95.7, MCH 30.5, MCHC 31.8 L, RDW Std Deviation 54.2 H, RDW Coeff of Heike 15.3 H, Plt Count 158, MPV 10.9, Immature Gran % (Auto) 0.700, Neut % (Auto) 69.1, Lymph % (Auto) 18.1 L, [place] % (Auto) 11.4 H, Eos % (Auto) 0.4, Baso % (Auto) 0.3, Absolute Neuts (auto) 7.1, Absolute Lymphs (auto) 1.85, Nucleated RBC % 0 06/25/20 04:25: Sodium 139, Potassium 3.6, Chloride 103, Carbon Dioxide 30.0, Anion Gap 6, BUN 22 H, Creatinine 1.37 H, Estim Creat Clear Calc 28.93, Est GFR (MDRD) Af Amer 49 L, Est GFR (MDRD) Non-Af 40 L, BUN/Creatinine Ratio 16.1, Glucose 95, Calcium 9.1 06/25/20 04:25: Hemoglobin A1c 7.9 H 06/25/20 08:03: POC Glucose 111 H Current Medications Acetaminophen (Tylenol) 650 mg PO Q6H PRN PRN PRN Reason: Pain Score 1-10/Temp > 100.7 F Aspirin (Ecotrin) 81 mg PO DAILY@0800 [facility] Last Admin: 06/25/20 08:05 Dose: 81 mg Documented by: Atorvastatin Calcium (Lipitor) 40 mg PO QHS [facility] Last Admin: 06/24/20 21:50 Dose: 40 mg Documented by: Enoxaparin Sodium (Lovenox) 40 mg SC DAILY [facility] Vancomycin IV Pharmacy to Dose (1 ea/ Sodium Chloride) 500 mls @ 250 mls/hr IV PRN PRN; Protocol PRN Reason: Rx to Dose Piperacillin Sod/Tazobactam (Sod 3.375 gm/ Sodium Chloride) 50 mls @ 12.5 mls/hr IV Q8 [facility] Last Admin: 06/25/20 05:04 Dose: 12.5 mls/hr Documented by: Vancomycin HCl 1,250 mg/ (Sodium Chloride) 275 mls @ 167 mls/hr IV Q24H [facility] Insulin Human Lispro (Humalog Kwikpen (Bkc)) 0 unit SC ACHS [facility]; Protocol Last Admin: 06/24/20 21:53 Dose: Not Given Documented by: Melatonin (Melatonin) 3 mg PO QHS PRN PRN PRN Reason: INSOMNIA Metoprolol Tartrate (Lopressor (Beta Brandt)) 50 mg PO BID [facility] Last Admin: 06/24/20 21:50 Dose: 50 mg Documented by: Ondansetron HCl (Zofran) 4 mg IV Q8H PRN PRN PRN Reason: NAUSEA/VOMITING Oxycodone HCl (Oxyir) 5 mg PO Q4H PRN PRN PRN Reason: Pain Score 4-10/10 Last Admin: 06/25/20 08:04 Dose: 5 mg Documented by: Prednisone () 5 mg PO DAILY@0800 [facility] Last Admin: 06/25/20 08:05 Dose: 5 mg Documented by: Senna/Docusate Sodium (Senokot-S, Gabriella-Colace) 2 tablet PO BID PRN PRN PRN Reason: Constipation Sodium Chloride () 10 - 40 ml IV UD PRN PRN Reason: SALINE FLUSH Last Admin: 06/25/20 05:04 Dose: 10 ml Documented by: Sodium Chloride (Hinds Nasal Reardan) 1 spray NASAL TID PRN PRN PRN Reason: NASAL DRYNESS Last Admin: 06/24/20 21:51 Dose: 1 spray Documented by: Medical Necessity - Tobacco Use Smoking Status: Never smoker Tobacco Use: Non-smoker, Secondhand Assessment/Plan All Active Problems (Last Updated 06/25/20 @ 08:[address] Myrna Holland MD) Severe sepsis (Acute) Cellulitis of right lower limb (Acute) This is a 74 years old female patient presented to the emergency room because of pain, redness and swelling of the right leg down to the right ankle and she was found to have severe sepsis secondary to acute right lower extremity cellulitis. #1 acute right lower extremity cellulitis/severe sepsis: She is on IV Zosyn and vancomycin. She has been afebrile, leukocytosis resolved. Other vital signs are stable. Blood cultures pending. Erythema and swelling of the right leg has been improving. Patient still complaining of right leg pain, she is on OxyIR PRN for pain. Repeat CBC and BMP from today reviewed, at baseline. Plan: Transfer to PCU, continue same treatment, PT OT evaluation and treatment. #2 chronic atrial fibrillation: Heart rate has been controlled, continue metoprolol for rate control. She is not on anticoagulation. #3 stage III chronic kidney disease: Baseline creatinine has been around 1.2 to 1.5 mg/dL. Today's creatinine is 1.37, stable at baseline. #4 type 2 diabetes mellitus: Blood sugar has been under control. Hemoglobin A1c was 7.9%. She is on insulin sliding scale. At home, she is not on any antidiabetic medications. #5 hypertension: Blood pressure stable, continue metoprolol, resume Lasix. #6 sarcoidosis: Stable, blood pressure is maintained. She is on long-term prednisone, continue same treatment. #7 obstructive sleep apnea: Continue BiPAP at night. #8 chronic bilateral lower extremity venous insufficiency/chronic healed wounds/ulcers status post skin graft: Currently, no open wounds, it is healed. Plan as above. #9 DVT prophylaxis: Subcu Lovenox. This note was generated with [employer] dictation software. It may contain incorrect words, spelling, and punctuation that were not noted in checking the note before signing. Inpatient E&M: 67130 [facility] Hosp L2
--- NOTE | 2020-06-25 09:40 | CASEMGMT ---
ANNETTA MCKINLEY assessment: Face to Face with patient for initial transition planning/care coordination assessment. ANNETTA MCKINLEY introduced self and role at [facility], pt voices understanding and consents to assessment at this time. Pt is sitting up in chair in no distress at this time. Pt is A/Ox4 at this time and answers all questions appropriately at this time. Care providers, pharmacy, and demographics verified at this time. Presentation: Right foot redness/edema, sent by PCP Admitting dx: Cellulitis PCP: Yaw Specialists: Dejan pulmorales; Alvarado, cardio; Solomon, PM; Gage/Blaise nephro Preferred [facility]acy: [facility] Insurance: [employer] Prescription Benefit: [employer] Living Will/HPOA: Pt states does not have LW/HPOA and declines AD info at this time. Pt states has info at home but can't make a decision on who she wants to be her HPOA. LNOK: Geraldo Zapata, ; Lisa Muller, daughter; Geraldo Zapata, son Living Arrangements: Pt states lives with in mobile home with 3-7 railed steps into home and states has been having increased difficulty with stairs recently. Pt states is independent with ADL's at home. Transportation: Pt states drives and states no transportation concerns at this time. DME/HHC: Pt states has the following DME: 4 prong cane, walker, w/cx2, and shower chair. Pt states no need for any further DME. Pt states has had [facility] in the past for wound care. CM to follow PT/OT evals. Pt states has not been to SNF in the past. Pt states no concerns with going home at time of discharge. Pt states is retired. Pt states does not smoke cigarettes or drink ETOH. Pt states no further concerns/needs at this time. CM to follow for PT/OT and any further discharge planning/needs. Advised pt to ask for CM if any further questions/concerns/needs arise, voices understanding. Pt Goal: Home Plan[place] ANNETTA MCKINLEY
--- NOTE | 2020-06-25 09:51 | PCM.RX.CS ---
Consult Pharmacy has been consulted to manage selected antiobiotic: Vancomycin Type of Consult: New start Suspected Infection: Skin/Soft tissue Labs: Sodium 139 mmol/L (136-145) 06/25/20 04:25 Potassium 3.6 mmol/L (3.5-5.1) 06/25/20 04:25 Chloride 103 mmol/L (98-107) 06/25/20 04:25 Carbon Dioxide 30.0 mmol/L (21.0-32.0) 06/25/20 04:25 Anion Gap 6 (5-15) 06/25/20 04:25 BUN 22 mg/dL (7-18) H 06/25/20 04:25 Creatinine 1.37 mg/dL (0.55-1.02) H 06/25/20 04:25 Est GFR (MDRD) Af Amer 49 mL/min (>60) L 06/25/20 04:25 Est GFR (MDRD) Non-Af 40 mL/min (>60) L 06/25/20 04:25 BUN/Creatinine Ratio 16.1 RATIO (-) 06/25/20 04:25 Glucose 95 mg/dL (74-106) 06/25/20 04:25 Goal Trough: 10-15 mcg/mL Pharmacy Plan for Drug Dosing: NEW START IV VANCOMYCIN Consulting Physician:Dr. Sadie Almonte Indication: Sepisis/cellulitis Goal Trough: 10-15 SrCr: 1.27 CrCl: 42mL/min (using AdjBW = 67.8kg) Comments: Initial 2000mg IV x1 dose ordered in the ED and administered 06/24/20 @1800. Pt does have mild CKD/ROLF and qualifies for Q24hr dosing. Will start scheduled doseing and order a trough prior to the 3rd total dose per protocol. A vancomycin trough was ordered for tomorrow AM, but this would be 12hrs from initial dose and would not indicate whether the drug is being cleared appropriately. Adjusting trough time. Vancomcyin Dose: 1250mg IV Q24hr to start 06/25/20 @1800 Pending Level: 06/26/20 @1730, prior to 3rd total dose of vancomycin Pharmacy Service will continue to monitor and adjust dosing as required.
[2020-06-25] MEDS: Acetaminophen 325 MG Tablet 650 MG PO ×3 (10:38→22:59)
[2020-06-25] MEDS: Metoprolol Tartrate 50 MG Tablet PO ×2 (10:39→22:56)
[2020-06-25] MEDS: Enoxaparin 40 MG/0.4 ML Syringe SC (10:39)
[2020-06-25 11:46] LABS: Bedside Glucose 188 mg/dL (70-110)
[2020-06-25] MEDS: Insulin Lispro 100 UNIT/ML INSULN.PEN SC ×2 (11:48→16:51)
--- NOTE | 2020-06-25 12:32 | NURSING ---
wound photo: right lower leg
--- NOTE | 2020-06-25 12:33 | NURSING ---
wound photo: right lower leg (lateral view)
--- NOTE | 2020-06-25 12:33 | NURSING ---
wound photo: right plantar foot
--- NOTE | 2020-06-25 12:36 | NURSING ---
was asked to see patient for redness to the right lower leg. pt states the redness is much improved. there are no open areas noted. pt does have a calloused area to the right plantar foot. pt states she follows with Dr Dee who trims the callous at times. patient has some scattered fluctuant areas to the right lower leg. pt states it looks the same has it has for years. CT was negative for abscesses. will monitor. no need for dressings at this time.
--- NOTE | 2020-06-25 13:05 | CHAPLAIN ---
Type of Pastoral Visit _x__ Initial Visit ___ Follow-up Visit ___ On-call Visit ___ General Patient Visit ___ Spiritual Assessment ___ Family Conference ___ Bereavement ___ Rapid Response ___ Code Blue ___ Other (describe below) Pastoral Care Referral From _x__ Patient _x__ Family ___ Nurse ___ Physician ___ Joint Cutter Machine ___ Card Clothier ___ Other (describe below) Sacrament/Intervention _x__ Active listening ___ Anointing ___ Roman Catholic ___ Bereavement ___ Communion ___ Amy exploration ___ ___ Life review _x__ Prayer ___ Reconciliation ___ Sacrament of Sick _x__ Supportive presence ___ Wedding ___ Other (describe below) Pastoral Comments
[2020-06-25 16:56] LABS: Bedside Glucose 157 mg/dL (70-110)
[2020-06-25] MEDS: Atorvastatin Calcium 40 MG Tablet PO (22:57)
[2020-06-25 23:06] LABS: Bedside Glucose 131 mg/dL (70-110)
[2020-06-26] VITALS (7 sets, daily range): BP systolic 116–118; BP diastolic 56–69; PULSE 76–83; RESP 17–18; TEMP 36–36.1; O2SAT 94–97
[2020-06-26 06:11] LABS: Procalcitonin 0.05 ng/mL (0.00-0.09)
[2020-06-26 07:00] LABS: Bedside Glucose 93 mg/dL (70-110)
[2020-06-26] MEDS: predniSONE 5 MG Tablet PO (07:49)
[2020-06-26] MEDS: Aspirin E.C. 81 MG Tablet PO (07:49)
[2020-06-26] MEDS: Metoprolol Tartrate 50 MG Tablet PO (09:21)
[2020-06-26] MEDS: Furosemide 40 MG Tablet PO (09:21)
[2020-06-26] MEDS: Enoxaparin 40 MG/0.4 ML Syringe SC (09:23)
--- NOTE | 2020-06-26 09:37 | PCM.DC ---
- Discharge Diagnoses Current Active Problems: Current Active and Chronic Problems (Last Updated 06/25/20 @ 08:[address] Myrna Holland MD) Severe sepsis (Acute) Cellulitis of right lower limb (Acute) You will use the following diet at home:: Calorie/Carbohydrate Controlled (specify 1200, 1400, etc) - 1800 summer., Cardiac Your food should be the consistency of: Regular Discharge Activity: Return to Normal Activity Weight Bearing Status: Weight bearing as tolerated Call your doctor if you observe: Fever of 101 or Higher, Shortness of breath, Dizziness, Fainting spells, Chest pain, Increased palpitations (irregular heartbeat), Uncontrolled pain Allergies/Adverse Reactions: Allergies amlodipine besylate [From Norvasc] Allergy (Verified 06/24/20 10:06) Unknown ceftriaxone Allergy (Verified 06/24/20 10:06) Rash doxazosin [From Cardura] Allergy (Verified 06/24/20 10:06) Unknown doxazosin mesylate [From Cardura] Allergy (Verified 06/24/20 10:06) Other VEINS TURNED RED doxycycline Allergy (Verified 06/24/20 10:06) Unknown Pt doesn't remember enalapril maleate [From Vasotec] Allergy (Verified 06/24/20 10:06) Rash enalaprilat dihydrate [From Vasotec] Allergy (Verified 06/24/20 10:06) Rash hydroxyzine HCl [From Vistaril] Allergy (Verified 06/24/20 10:06) Rash hydroxyzine pamoate [From Vistaril] Allergy (Verified 06/24/20 10:06) Rash meperidine HCl [From Demerol] Allergy (Verified 06/24/20 10:06) Rash Sulfa (Sulfonamide Antibiotics) Allergy (Verified 06/24/20 10:06) Hives sulfamethoxazole [From Bactrim] Allergy (Verified 06/24/20 10:06) Hives trimethoprim [From Bactrim] Allergy (Verified 06/24/20 10:06) Hives losartan Adverse Reaction (Unknown, Verified 06/24/20 10:06) Unknown Medications to take at Discharge Aspirin E.C. [Ecotrin] 81 mg PO DAILY@0800 #30 tab 04/09/19 Atorvastatin Calcium [Lipitor] 40 mg PO QHS #30 tab 04/09/19 metoprolol tartrate 50 mg tablet 50 mg PO BID 12/04/19 Furosemide 40 mg PO DAILY 04/30/20 Potassium Chloride [K-Tab ER] 20 meq PO DAILY 04/30/20 Spironolactone 25 mg PO DAILY 04/30/20 Miglitol 25 mg PO DINNER 06/24/20 Prednisone 5 mg PO DAILY 06/24/20 Amox/Clavulanate Tablet [Augmentin Tablet] 875 mg PO Q12H #10 tab 06/26/20 Clindamycin [Cleocin] 450 mg PO TID #45 cap 06/26/20 Lactobacillus Acidophilus [Acidophilus] 1 tab PO BID #14 tab 06/26/20 The following prescriptions were given: Lactobacillus Acidophilus [Acidophilus] 1 tab PO BID #14 tab Transmission Status: Pending to [id number] Amox/Clavulanate Tablet [Augmentin Tablet] 875 mg PO Q12H #10 tab Transmission Status: Pending to [id number] Clindamycin [Cleocin] 450 mg PO TID #45 cap Transmission Status: Pending to [facility] [place] [address] Primary Care Physician: Aaron Tidwell MD [Primary Care Provider] - Please follow up with your Primary Care Physician in: 1 week. Test Results: Test results from this visit will be discussed in further detail at your follow-up appointment, if applicable. Please Follow Up With: wound care center When: as needed.
--- NOTE | 2020-06-26 10:35 | PHA.DC.MC ---
Pharmacy Service has performed discharge medication reconciliation and counseling for this patient. The patient was counseled on the following discharge medications and changes in medications for homegoing were reviewed. 1. CLINDAMYCIN 2. AUGMENTIN 3. LACTOBACILLUS The Reason for Use, instructions for use, and potential side effects were reviewed for all new medications. The patient's questions regarding all of their medications were answered. The patient was able to verbally demonstrate an understanding of their discharge medications. Home Medications Aspirin E.C. [Ecotrin] 81 mg PO DAILY@0800 #30 tab 04/09/19 Atorvastatin Calcium [Lipitor] 40 mg PO QHS #30 tab 04/09/19 metoprolol tartrate 50 mg tablet 50 mg PO BID 12/04/19 Furosemide 40 mg PO DAILY 04/30/20 Potassium Chloride [K-Tab ER] 20 meq PO DAILY 04/30/20 Spironolactone 25 mg PO DAILY 04/30/20 Miglitol 25 mg PO DINNER 06/24/20 Prednisone 5 mg PO DAILY 06/24/20 Amox/Clavulanate Tablet [Augmentin Tablet] 875 mg PO Q12H #10 tab 06/26/20 Clindamycin [Cleocin] 450 mg PO TID #45 cap 06/26/20 Lactobacillus Acidophilus [Acidophilus] 1 tab PO BID #14 tab 06/26/20 The patient's discharge medication list was reviewed for discrepancies and discrepancies were resolved.
--- NOTE | 2020-06-26 10:37 | CASEMGMT ---
This RN CM to room to discuss discharge planning with pt at this time. Therapy is at bedside with pt and states pt has no need for therapy at home at this time and that they will be providing pt with exercises to go home with. Pt declines need for HHC/OP therapy at this time and is aware to call PCP if she changes her mind once home, voices understanding. Pt states has upcoming appt with PCP along with bloodwork and pt aware to let PCP know that she had bloodwork completed here and they can call and get records, voices understanding. Pt does state that she now has a blister to leg and Kate, wound RN, to check in prior to discharge. Pt voices no further questions/concerns/needs at this time. SStaten RN CM
[2020-06-26 12:05] LABS: Bedside Glucose 154 mg/dL (70-110)
--- NOTE | 2020-06-26 12:58 | DS.PCM_ITS ---
Discharge Date and Diagnosis Date of Admission: 06/24/20 Date of Discharge: 06/26/20 - Primary Discharge Diagnosis Acute Problems: #1 acute right lower extremity cellulitis. #2 severe sepsis. - Secondary Discharge Diagnosis Chronic Problems: Chronic Problems (Last Updated 06/25/20 @ 08:[address] 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 calciphylaxis vs. erythema nodosum vs. dermatomyositis vs. panniculitis Mass of soft tissue of right lower extremity (Chronic) right inner upper thigh - ? calciphylaxis vs. erythema nodosum vs. derma tomyositis vs. panniculitis LYN (obstructive sleep apnea) (Chronic) GERD (gastroesophageal reflux disease) (Chronic) Calcinosis (Chronic) Recurrent falls (Chronic) PAOD (peripheral arterial occlusive disease) (Chronic) Depression (Chronic) Neuropathic pain (Chronic) Ulcer of right lower extremity with fat layer exposed (Chronic) Ulcer of left lower extremity with fat layer exposed (Chronic) Calciphylaxis (Chronic) Venous insufficiency (chronic) (peripheral) (Chronic) Sarcoidosis (Chronic) MRSA (methicillin resistant staph aureus) culture positive (Chronic) Bradycardia by electrocardiogram (Chronic) Thyroid nodule (Chronic) 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) History of ST elevation myocardial infarction (STEMI) (Chronic 04/07/19) 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 No evidence of abscess. No discrete fluid collection is seen. Electronically Signed: Carlos Cai, at 15:47 EDT , Service support , Consultations 06/24/20 13:32 Consult: Onc/Wound/lecturer in computer science Routine Comment: Operations: None Procedures: None Summary of Care Provided: Patient seen and examined on the day of discharge and appeared to be stable to be discharged home. Erythema and swelling of the left leg did not improve slowl y. She remained afebrile. Her vital signs are stable. The patient is a 74 year old F presented to the emergency room because of pain, redness and swelling of the right leg down to the right ankle and she was found to have acute right lower extremity cellulitis complicated by severe sepsis in the setting of healed chronic right leg ulcers with past history of skin grafts. On admission, CT scan of the right lower extremity done and revealed findings suggestive of right lower extremity cellulitis without evidence of abscess or fluid collection. On admission, patient was in severe sepsis, did have leukocytosis and lactic acid was elevated. MRSA screening was positive. Patient was treated with IV vancomycin and Zosyn as well as IV fluids and pain medications. With IV fluids, lactic acid returned back to normal. Leukocytosis resolved as well. Her other routine blood work was stable and at her baseline including her kidney functions. With IV antibiotics, local erythema and swelling of the right leg improved. Blood culture showed no growth in 48 hours. There was no evidence of open wounds or drainage on the right leg or right foot. Patient discharged home in a stable medical condition, discharged on Augmentin twice daily and clindamycin 3 times daily for 5 more days of treatment to complete total of 8 days of treatment, discharged on probiotics, continued on her previous home medications including long-term prednisone at 5 mg p.o. daily, recommended follow-up with PCP in 1 week and follow-up with wound care center if needed. - Physical Exam Vitals/I&O's: Vital Signs Temp Pulse Resp BP Pulse Ox 96.8 F L 79 17 116/56 L 97 06/26/20 10:26 06/26/20 10:26 06/26/20 10:26 06/26/20 10:06/26/20 10:26 Oxygen Delivery Method Room Air Weight: 197 lb 1.492 oz Body Mass Index (BMI) 34.9 Finger Stick Blood Glucose 124 Intake and Output for Last 24 Hours 06/24/20 06/25/20 06/26/20 23:59 23:59 23:59 Intake Total 980 / 980 1625 / 1625 100 / 100 Output Total 150 / 150 275 / 275 Balance 830 / 830 1350 / 1350 100 / 100 General: Alert, Oriented x3, Cooperative, No apparent distress HEENT: Atraumatic, PERRLA, EOMI, Normocephalic Oral: Moist Mucosa, No Gingival or Mucosal Lesions/ Ulcerations Neck: Supple, No JVD, Negative Carotid Bruits, Trachea Midline, Thyroid Normal Size and Texture Lungs: Clear to auscultation, Normal air movement, No rhonchi, No wheeze, No rales, Diminished Cardiovascular: Regular rate, Regular Rhythm, Normal S1, Normal S2, PMI Normal Abdomen: Bowel Sounds Present, Soft, Non Tender, Non-Distended, No Hepato- splenomegaly Extremities: No clubbing, No cyanosis, No edema Skin: No rashes, No breakdown, - - Mild erythema and swelling of the right leg, improving. Lymphatic: No Cervical, Supraclavicular, or Inguinal Adenopathy Neurological: Cranial nerves II-XII grossly intact, Neuro grossly intact Psych/Mental Status: Normal Affect, Appropriate Microbiology Past 72 Hours 06/24/20 12:04 Blood Culture (Wb) - Left Forearm Blood Culture - Preliminary No growth in 48 hours. 06/24/20 12:04 Blood Culture (Wb) - Left Wrist Blood Culture - Preliminary No growth in 48 hours. Laboratory Results 06/25/20 16:48: POC Glucose 157 H 06/25/20 22:54: POC Glucose 131 H 06/26/20 05:35: Procalcitonin 0.05 06/26/20 06:44: POC Glucose 93 06/26/20 11:04: POC Glucose 154 H Discharge Activity: Return to Normal Activity Weight Bearing Status: Weight bearing as tolerated Call your doctor if you observe: Fever of 101 or Higher, Shortness of breath, Dizziness, Fainting spells, Chest pain, Increased palpitations (irregular heartbeat), Uncontrolled pain Home Medications: Medications to take at Discharge Aspirin E.C. [Ecotrin] 81 mg PO DAILY@0800 #30 tab 04/09/19 Atorvastatin Calcium [Lipitor] 40 mg PO QHS #30 tab 04/09/19 metoprolol tartrate 50 mg tablet 50 mg PO BID 12/04/19 Furosemide 40 mg PO DAILY 04/30/20 Potassium Chloride [K-Tab ER] 20 meq PO DAILY 04/30/20 Spironolactone 25 mg PO DAILY 04/30/20 Miglitol 25 mg PO DINNER 06/24/20 Prednisone 5 mg PO DAILY 06/24/20 Amox/Clavulanate Tablet [Augmentin Tablet] 875 mg PO Q12H #10 tab 06/26/20 Clindamycin [Cleocin] 450 mg PO TID #45 cap 06/26/20 Lactobacillus Acidophilus [Acidophilus] 1 tab PO BID #14 tab 06/26/20 Following Prescriptions Were Given to Patient: Lactobacillus Acidophilus [Acidophilus] 1 tab PO BID #14 tab Transmission Status: Received by [facility] Amox/Clavulanate Tablet [Augmentin Tablet] 875 mg PO Q12H #10 tab Transmission Status: Received by [facility] Clindamycin [Cleocin] 450 mg PO TID #45 cap Transmission Status: Received by [facility] [id number] Primary Care Physician: Aaron Tidwell MD [Primary Care Provider] - Please follow up with your Primary Care Physician in: 1 week. Please Follow Up With: wound care center When: as needed. Disposition: Home Minutes spent on discharge:: 32 Patient Condition:: Stable Medical Necessity - Tobacco Use Smoking Status: Never smoker Tobacco Use: Non-smoker, Secondhand Meaningful Use Info Meaningful Use Diagnoses (Choose all that apply): None applicable Inpatient E&M: 16159 Disch Hosp
--- NOTE | 2020-06-26 15:01 | NURSING ---
Read and reviewed SN documentation
--- NOTE | 2020-06-29 11:44 | CASEMGMT ---
ANNETTA CM Discharge Follow-up Phone Call: DELILAH: Khoi Strata: 3 Call Date: 06/29/2020 Discharge Date: 06/26/2020 Time of Call: [id number] Duration: 6 minutes Admitting Diagnosis: sepsis 2/2 cellulitis Discharge follow--up call placed to patient. Pt states she has been tired but otherwise still cooking and cleaning. States she rests in between tasks. States her is able to assist her when needed. Pt states she did obtain her antibiotics and will be completing them on Monday and the acidophilus on Monday. Pt has called Dr. Dee's office for a follow-up appointment which she has scheduled. Pt also aware of her phone appointment with Dr. Tidwell this Monday. Pt states she continues to have swelling of her foot and ankle and with some pain but states the pain is much improved from when she first presented to the hospital. Pt denies any fever and states the redness is gone. Pt denied any questions regarding her discharge instructions. Carlos Mann RN
== END 2020-06-26 11:59 | disposition home or self-care (01) | DRG 872 ==
LOC: ED 11:45 → ICU 06-25 07:10 → PCU 06-25 13:31
PROVIDERS: Admitting Provider Internal Medicine; Emergency Provider Emergency Medicine; PCP Internal Medicine; Visit Provider Hospitalist
DX: A41.9 Sepsis, unspecified organism (principal); L03.115 Cellulitis of right lower limb; E87.2 Acidosis; I48.21 Permanent atrial fibrillation; I13.0 Hypertensive heart and chronic kidney disease with heart failure and stage 1 through stage 4 chronic kidney disease, or unspecified chronic kidney disease; I50.32 Chronic diastolic (congestive) heart failure; R65.20 Severe sepsis without septic shock; R00.0 Tachycardia, unspecified; Z79.01 Long term (current) use of anticoagulants; E11.22 Type 2 diabetes mellitus with diabetic chronic kidney disease; N18.30 Chronic kidney disease, stage 3 unspecified; F29 Unspecified psychosis not due to a substance or known physiological condition; K21.9 Gastro-esophageal reflux disease without esophagitis; G47.33 Obstructive sleep apnea (adult) (pediatric); I25.2 Old myocardial infarction; E11.51 Type 2 diabetes mellitus with diabetic peripheral angiopathy without gangrene; D86.89 Sarcoidosis of other sites; I27.21 Secondary pulmonary arterial hypertension; M48.061 Spinal stenosis, lumbar region without neurogenic claudication; M54.16 Radiculopathy, lumbar region; Z79.82 Long term (current) use of aspirin; Z79.899 Other long term (current) drug therapy; Z79.52 Long term (current) use of systemic steroids; E05.10 Thyrotoxicosis with toxic single thyroid nodule without thyrotoxic crisis or storm; D64.9 Anemia, unspecified; M19.90 Unspecified osteoarthritis, unspecified site; I25.10 Atherosclerotic heart disease of native coronary artery without angina pectoris; E66.9 Obesity, unspecified; Z86.718 Personal history of other venous thrombosis and embolism; Z98.890 Other specified postprocedural states; Z68.38 Body mass index [BMI] 38.0-38.9, adult; D69.6 Thrombocytopenia, unspecified; J45.909 Unspecified asthma, uncomplicated; I87.2 Venous insufficiency (chronic) (peripheral); F41.9 Anxiety disorder, unspecified; Z22.322 Carrier or suspected carrier of Methicillin resistant Staphylococcus aureus; Z95.5 Presence of coronary angioplasty implant and graft; Z86.14 Personal history of Methicillin resistant Staphylococcus aureus infection; E11.42 Type 2 diabetes mellitus with diabetic polyneuropathy
CPT/HCPCS: 73700; 80048; 82962; 83036; 83605; 84145; 85025; 87040; 87641; 97110; 97116; 97162; 97165; 97530; 97535; 99251; 99285; J7040; J7050; A4216; G0463

== ENCOUNTER → 2020-08-19 07:05 | Outpatient (CLI) | payer MEDICARE, SELFPAY ==
[2019-06-21 15:30] VITALS: BMI 35.8
[2020-06-24 14:58] VITALS: BMI 34.9
[2020-08-19 08:32] LABS: Albumin, Serum 3.8 g/dL (3.2-5.0); BUN 32 mg/dL (7-18); BUN/Creat Ratio 21.5 RATIO (10-20); Calcium,Total 9.3 mg/dL (8.5-10.1); Chloride 107 mmol/L (98-107); Creatinine, Serum 1.49 mg/dL (0.55-1.02); EST Glomerular Filtration Rate 36 mL/min (>60); Est Glom Filt Rate - Afr Amer 44 mL/min (>60); Glucose 158 mg/dL (74-106); Phosphorus 4.6 mg/dL (2.5-4.9); Potassium 4.1 mmol/L (3.5-5.1); Sodium Level 139 mmol/L (136-145)
[2020-08-19 08:38] LABS: Vitamin D,25 Hydroxy 33.2 ng/mL
[2020-08-21 21:39] LABS: Vitamin D 1,25-Dihydroxy 31.2 pg/mL (19.9-79.3)
== END ==
PROVIDERS: PCP Internal Medicine; Referring Provider Internal Medicine Nephrology; Visit Provider Internal Medicine Nephrology
DX: E83.52 Hypercalcemia (principal); N18.30 Chronic kidney disease, stage 3 unspecified
CPT/HCPCS: 36415; 80069; 82306; 82652

== ENCOUNTER 2020-09-20 18:53 | Observation (INO) | payer MEDICARE, SELFPAY ==
[2019-06-21 15:30] VITALS: BMI 35.8
[2020-06-24 14:58] VITALS: BMI 34.9
[2020-09-20 18:54] VITALS: BP 129/98; PULSE 132; RESP 19; TEMP 35.6; O2SAT 96; BMI 35.6
--- NOTE | 2020-09-20 19:12 | EKG12_ITS ---
Test Reason : VOMITING Blood Pressure : / mmHG Vent. Rate : 110 BPM Atrial Rate : 131 BPM P-R Int : 000 ms QRS Dur : 088 ms QT Int : 368 ms P-R-T Axes : 000 074 216 degrees QTc Int : 498 ms Atrial fibrillation with rapid ventricular response with premature ventricular or aberrantly conducte d complexes Nonspecific ST and T wave abnormality Abnormal ECG Confirmed by AMANDA BACON, PRATEEK ([id number]), food editor CONRADO JOHNSON ([id number]) on 09/24/2020 10:19:42 AM Referred By: PARESH Confirmed By:GABY PATEL MD
[2020-09-20] MEDS: Ondansetron 4 MG/2 ML Vial IV ×2 (19:37→23:19)
[2020-09-20] MEDS: Morphine 4 MG/ML Syringe IV (19:37)
[2020-09-20 19:41] VITALS: BP 134/80; PULSE 105; RESP 24; O2SAT 96
--- NOTE | 2020-09-20 19:48 | ED.DCSUM_ITS ---
- ER Visit Summary Date of Service: 09/20/20 Chief Complaint: Vomiting and diarrhea History of Present Illness: The patient is a [address] Tidwell and Dr. Childers. She reports that she has abdominal pain that began today. It is a sharp, aching diffuse pain that is 10 of 10 at worst and 5-10 currently. It is worsened by nothing relieved by nothing. She reports is been nausea and vomited 3 times. No blood or emesis. She also states that she had 3 episodes of diarrhea. No blood in her stools or black tarry stools. Patient denies sick contacts. Has not been camping out of the country. No possible bad food exposure. Does not drink well water. No recent antibiotic use. On review of systems patient notes that she had left leg pain for the past 3 days from her knee down. States that it feels numb and cold. When asked how severe the pain is she reports I do not even notice it. Patient also complains of a chronic cough that is unchanged. She has shortness of breath that is chronic and unchanged as well. She denies any chest pain. No dysuria or frequency. She has chronic back pain is unchanged. Patient complained to the nurse of blisters on my vagina. When asked about this she reports that she gets red spots in her vagina that then break open and bleed and then resolved. She states that she has had these for months. She does not want that examined today. Physical Examination: Vitals: 96.0, 129/98, 132, 19, 96% room air which is not hypoxic. General: Well-nourished and well-developed. Head: Normocephalic atraumatic. Neck: Supple, no lymphadenopathy. No JVD. Nontender. Cardiovascular: Tachycardic irregular rhythm with a 2 out of 6 systolic murmur. Respiratory: No respiratory distress. Clear to auscultation bilaterally. Abdominal: Soft, mild diffuse tenderness to palpation, nondistended, normal bowel sounds. No guarding, rebound, or peritoneal signs. Back: Nontender. Extremities: Nontender, no edema. Left leg shows erythema on the back of her leg and medial side of her leg. There is less than 2-second cap refill. She has a 1+ dorsalis pedis pulse. It is not cool or pale. Skin: Normal color, no rash. Neurologic: Alert and oriented ?3. Cranial nerves II through XII are intact. Normal strength and sensation. Psych: Normal affect. Test Results: EKG is A. fib at [address] changes. Is unchanged from April of this year. CBC shows a white count of 15.9 with 85 segmented neutrophils and 7 lymphocytes. H&H is 15.5 and 50.2 suggesting hemoconcentration. Chem-7 shows a glucose 166, BUN 29, creatinine 1.47. LFTs show total bili 1.2, AST of 39. Lipase is 92. UA shows no evidence of infection. Troponin is negative. Clinical Impression(s) from Imaging Studies Abdomen/Pelvis CT 09/20/20 21:26 IMPRESSION: 1. No dilated loops of small bowel or bowel wall thickening. 2. Nonobstructing left nephrolithiasis. No hydronephrosis. Electronically Signed: Sanjay Lyle MD (Brooks) at 21:56 EST , Service support , Chest X-Ray 09/20/20 21:35 IMPRESSION: Developing right lower lobe infiltrate or atelectasis. Electronically Signed: Sanjay Lyle MD (Brooks) at 21:53 EST , Service support , Emergency Department Course and Treatment: Patient had an IV placed. She was given morphine, Zofran IV. She was given 10 mg of Cardizem IV. Radiologist read the x-ray as a developing right lower lobe infiltrate or atelectasis. However, it does not look any different than the x-ray she had in April in my opinion. The CT of her abdomen pelvis does not show an infiltrate in the right lower lobe. Patient reports that she has a chronic cough that is unchanged. I do not think that treating her with antibiotics for this questionable infiltrate is in her best interest. Treatment Plan: Patient feels much improved following the Zofran. She was given a 500 cc bolus of normal saline. Initially the patient reported that she wanted to go home. However, she had another episode of abdominal cramping and nausea. She does not feel comfortable going home. Patient's heart rate was fluctuating between the 80s and 1 teens. She did not take her evening dose of Lopressor. She was given this p.o. Patient was discussed with Dr. Holland and will be admitted for further evaluation and treatment. Disposition: Admitted in stable condition. Impression: 1. Vomiting/diarrhea. 2. Dehydration. 3. Atrial fibrillation with RVR. This note was generated with [employer] dictation software. It may contain incorrect words, spelling, and punctuation that were not noted in review of the chart prior to signing ED Disposition - Plan for ED Patient: Instructions: ED Vomiting and Diarrhea ... Prescriptions: Ondansetron [Zofran Odt] 4 mg PO Q8H PRN PRN #10 tab PRN Reason: Nausea Prescription Printed Referrals: Aaron Tidwell MD [Primary Care Provider] - 1-2 Days if not improving
[2020-09-20 20:37] LABS: Color, Urine Yellow (Yellow); Glucose, Dipstick Normal (Normal); Ketone-Dipstick Negative (Negative); Leukocyte Esterase-Dipstick Negative /ul (Negative); Mucous, Urine 0 SEEN /hpf (<or=2+); Nitrite-Dipstick Negative (Negative); Occult Blood-Urine 10 /ul (Negative); Protein-Dipstick Negative (Negative); Red Blood Cells-Urine 0 SEEN /hpf (0-5); Specific Gravity, Urine 1.015 (1.002-1.030); Squamous Epithelial Cells - UA 0 SEEN /hpf (5-10); Urine Bilirubin Dipstick Negative (Negative); Urine Clarity Clear (Clear); Urine Urobilinogen Normal (Normal); White Blood Cells 0 SEEN /hpf (0-5)
[2020-09-20 20:50] LABS: Bacteria RARE /hpf (None Seen)
[2020-09-20 21:00] VITALS: BP 129/84; PULSE 95; RESP 18; O2SAT 93
[2020-09-20 21:05] LABS: Absolute Lymphocyte Count 1.15 X10^3/uL (0.83-4.51); Absolute Neutrophil Count 13.5 X10^3/uL (2.0-7.7); Basophil# 0.04 X10^3/uL; Basophil% 0.3 % (0-1); Eosinophil# 0.01 X10^3/uL; Eosinophils% 0.1 % (0-5); Hematocrit 50.2 % (37-47); Hemoglobin 15.5 g/dL (12.0-15.0); Lymphocyte # 1.15 X10^3/ul (4.0); Lymphocyte % 7.2 % (19-41); Mean Corp Hgb Conc 30.9 g/dL (32-36); Mean Corpuscular Hgb 29.2 pg (27.0-32.0); Mean Corpuscular Volume 94.7 fL (81-99); Mean Platelet Vol. 11.6 fl (6.2-12.0); Monocyte# 1.08 X10^3/uL; Monocyte% 6.8 % (0-10); NRBC Flagged by Analyzer 0 % (0-5); Neutrophil # 13.53 X10^3/uL (2.7-7.7); Neutrophil % 85.2 % (47-70); POSITIVE COUNT YES; Platelet Count 111 K/mm3 (150-450); RBC Distribution Width CV 15.2 % (11.6-14.6); RBC Distribution Width SD 52.1 fl (35.1-43.9); White Blood Count 15.9 K/mm3 (4.4-11.0)
[2020-09-20 21:12] LABS: Differential Indicated SCAN CRITERIA MET
[2020-09-20 21:21] LABS: Platelet Estimate SLT DEC (ADEQ); Platelet Morphology CLUMPED
--- NOTE | 2020-09-20 21:26 | CT_ITS ---
STUDY: CT ABDOMEN AND PELVIS WITHOUT CONTRAST REASON FOR EXAM: Female, 74 years old. ABDOMEN PAIN,NAUSEA AND VOMITING TODAY -- HX:DIABETES,GERD,HTN,CKD STAGE 3,MRSA,A-FIB,CHF,SPINAL STENOSIS -- SURG:GB,HYSTERECTOMY,CARDIAC ABLATION,DARION,FUNDOPLICATION RADIATION DOSAGE (If Supplied By Facility): CTDIvol = ( 18.27 ) mGy, DLP = ( 889.87 ) mGycm TECHNIQUE: Transaxial images were obtained from the dome of the diaphragm to the symphysis pubis without oral contrast, and without intravenous contrast. Sagittal and coronal images were reconstructed. Individualized dose optimization techniques were used for this CT. COMPARISON: None. FINDINGS: The visualized lung bases are unremarkable. The visualized portions of the heart are within normal limits. Normal liver. There are surgical clips in the gallbladder fossa consistent with a prior cholecystectomy. Normal spleen. Normal pancreas. Normal bilateral adrenal glands. Normal right kidney. Small punctate calculi of the left kidney measure 1-2 mm. No hydronephrosis or ureteral calculi. There is a small hiatal hernia. Normal small intestine. Normal colon. There is non-visualization of the appendix. There is diffuse atherosclerotic calcification of the abdominal aorta, without a demonstrated aneurysm. Normal inferior vena cava. Normal retroperitoneum. Normal urinary bladder. There is absence of the uterus consistent with a prior hysterectomy. Focal areas of induration of the lower anterior abdominal wall are likely injection sites. There are diffuse degenerative changes of the visualized lumbar spine. CT/Abdomen/Pelvis without Cont IMPRESSION: 1. No dilated loops of small bowel or bowel wall thickening. 2. Nonobstructing left nephrolithiasis. No hydronephrosis. Electronically Signed: Sanjay Lyle MD (Brooks) at 21:56 EST , Service support ,
--- NOTE | 2020-09-20 21:35 | RAD_ITS ---
STUDY: X-RAY CHEST REASON FOR EXAM: Female, 74 years old. COMPLAINS OF ABD PAIN WITH N/V/D THAT STARTED THIS AM. LEFT LEG NUMBNESS/PAIN. TECHNIQUE: AP COMPARISON: 04/28/2020 FINDINGS: EKG leads project over the chest. Localized opacity in the right lung base projecting over the right heart border. There is no demonstrated pleural abnormality. There is mild cardiac enlargement. Normal mediastinum and kenn. Normal visualized pulmonary arteries. There is atherosclerotic calcification of the aortic arch with tortuosity. No acute bony process. There is no demonstrated abnormality of the visualized soft tissue structures of the upper abdomen. RAD/Chest 1 View (Portable) IMPRESSION: Developing right lower lobe infiltrate or atelectasis. Electronically Signed: Sanjay Lyle MD (Brooks) at 21:53 EST , Service support ,
[2020-09-20 22:12] LABS: ALB/GLOB Ratio 0.9 RATIO (0.9-2.4); AST(SGOT) 39 U/L (15-37); Alanine Aminotransfer ALT/SGPT 37 U/L (13-56); Albumin, Serum 3.6 g/dL (3.2-5.0); Alkaline Phosphatase 74 U/L (45-117); Anion Gap 6 (5-15); BUN 29 mg/dL (7-18); BUN/Creat Ratio 19.7 RATIO (10-20); Calcium,Total 9.1 mg/dL (8.5-10.1); Chloride 104 mmol/L (98-107); Creatinine, Serum 1.47 mg/dL (0.55-1.02); EST Glomerular Filtration Rate 37 mL/min (>60); Est Glom Filt Rate - Afr Amer 45 mL/min (>60); Estimated Creatinine Clearance 26.96 ml/min; Globulin 3.8 g/dL (2.2-4.2); Glucose 166 mg/dL (74-106); Lipase 92 U/L (73-393); Potassium 4.3 mmol/L (3.5-5.1); Protein, Total 7.4 g/dL (6.4-8.2); Sodium Level 138 mmol/L (136-145)
[2020-09-20 23:21] VITALS: BP 137/82; PULSE 103; RESP 21; TEMP 35.6; O2SAT 97
--- NOTE | 2020-09-20 23:29 | PCM.HP.STD ---
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 The patient is a 74 year old F with past medical history as mentioned above presented to the emergency room because of abdominal pain. Her symptoms started this morning with abdominal pain, epigastric pain, 7 out of 10 in severity, not radiating, associated with nausea and vomiting, she threw up around 3 times in the house and then once in the ED, also associated with diarrhea, had 3 loose bowel movements today at home without blood and no aggravating or relieving factors. She denies fever or chills. She denied bloody stool. She denied upper chest pain. She reported chronic shortness of breath which is at her baseline without worsening. Length of left leg pain from the left knee down to the left foot that started 3 days ago, associated with numbness. She does have a history of peripheral vascular disease and she has chronic bilateral leg pain but she mentioned that the pain on the left leg got worse but it is the usual pain. Her both legs are cold and this is chronic. In the emergency department, she was afebrile, she was in A. fib with RVR, blood pressure was stable, pulse ox was 97% on room air. Routine blood work was remarkable for leukocytosis, chronic thrombocytopenia, BUN of 29 and creatinine 1.47 and both are chronic. LFT revealed bilirubin of 1.2, AST of 39, otherwise normal. Lipase was normal. EKG revealed A. fib with RVR, no acute ischemic changes. Troponin was negative. Patient received 1 dose of IV Cardizem bolus and then metoprolol p.o. 50 mg x 1. Current heart rate is around 80s to 90s. Chest x-ray reviewed, but quality x-ray, haziness on both bases, no obvious infiltrate. Official report mentioned that developing right lower lobe infiltrate which I doubt. CT scan abdomen and pelvis without contrast revealed unremarkable visualized lung bases, no significant other acute pathology, nonobstructing left kidney stone, no hydronephrosis. Patient received IV fluids in the ED as well as multiple rounds of IV Zofran, IV morphine x1 and she continued to have significant nausea and vomiting as well as epigastric pain. She is being admitted for intractable nausea and vomiting with abdominal pain of unclear etiology as well as A. fib with RVR which slowed down after she received IV Cardizem bolus and p.o. metoprolol. Past Medical History Past Medical History (Chronic Problems): Chronic Problems (Last Updated 09/20/20 @ 23:[address] 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) LYN (obstructive sleep apnea) (Chronic) GERD (gastroesophageal reflux disease) (Chronic) PAOD (peripheral arterial occlusive disease) (Chronic) Depression (Chronic) Ulcer of right lower extremity with fat layer exposed (Chronic) Ulcer of left lower extremity with fat layer exposed (Chronic) Calciphylaxis (Chronic) Venous insufficiency (chronic) (peripheral) (Chronic) Sarcoidosis (Chronic) MRSA (methicillin resistant staph aureus) culture positive (Chronic) 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 Myrna Holland MD) Sick sinus syndrome (Chronic) I49.5 Status post placement of implantable loop recorder (Chronic) Z95.818 Type 2 diabetes mellitus (Chronic) E11.9 Lung nodule (Chronic) R91.1 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) M48.061, M54.16 LYN (obstructive sleep apnea) (Chronic) G47.33 GERD (gastroesophageal reflux disease) (Chronic) K21.9 PAOD (peripheral arterial occlusive disease) (Chronic) I77.9 Depression (Chronic) F32.9 Ulcer of right lower extremity with fat layer exposed (Chronic) L97.912 Ulcer of left lower extremity with fat layer exposed (Chronic) L97.922 Calciphylaxis (Chronic) E83.59 Venous insufficiency (chronic) (peripheral) (Chronic) I87.2 Sarcoidosis (Chronic) D86.9 MRSA (methicillin resistant staph aureus) culture positive (Chronic) Z22.322 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) E05.[address] elevation myocardial infarction (STEMI) (Chronic) Onset Date: 04/07/19 I25.2 Essential (primary) hypertension (Chronic) I10 Secondary pulmonary arterial hypertension (Chronic) I27.21 Atherosclerosis of coronary artery of [place] heart without angina pectoris (Chronic) I25.10 Chronic atrial fibrillation (Chronic) I48.2 Chronic kidney disease, stage 3 (Chronic) N18.3 Anemia (Chronic) D64.[address] of chest (Inactive) R93.8 GI bleeding (Inactive) K92.2 Venous stasis ulcer of left lower leg with edema of left lower leg (Inactive) I83.892, I83.028, R60.9 Venous stasis ulcer of right lower leg with edema of right lower leg (Inactive) I83.891, I83.018, R60.9 Allergies amlodipine besylate [From Norvasc] Allergy (Verified 09/20/20 18:53) Unknown ceftriaxone Allergy (Verified 09/20/20 18:53) Rash doxazosin [From Cardura] Allergy (Verified 09/20/20 18:53) Unknown doxazosin mesylate [From Cardura] Allergy (Verified 09/20/20 18:53) Other VEINS TURNED RED doxycycline Allergy (Verified 09/20/20 18:53) Unknown Pt doesn't remember enalapril maleate [From Vasotec] Allergy (Verified 09/20/20 18:53) Rash enalaprilat dihydrate [From Vasotec] Allergy (Verified 09/20/20 18:53) Rash hydroxyzine HCl [From Vistaril] Allergy (Verified 09/20/20 18:53) Rash hydroxyzine pamoate [From Vistaril] Allergy (Verified 09/20/20 18:53) Rash meperidine HCl [From Demerol] Allergy (Verified 09/20/20 18:53) Rash Sulfa (Sulfonamide Antibiotics) Allergy (Verified 09/20/20 18:53) Hives sulfamethoxazole [From Bactrim] Allergy (Verified 09/20/20 18:53) Hives trimethoprim [From Bactrim] Allergy (Verified 09/20/20 18:53) Hives losartan Adverse Reaction (Unknown, Verified 09/20/20 18:53) Unknown Home Medications: Ambulatory Orders Medication Instructions Recorded Aspirin E.C. [Ecotrin] 81 mg PO DAILY@0800 #30 tab 04/09/19 Atorvastatin Calcium [Lipitor] 40 mg PO QHS #30 tab 04/09/19 metoprolol tartrate 50 mg tablet 50 mg PO BID 12/04/19 Furosemide 40 mg PO DAILY 04/30/20 Spironolactone 25 mg PO DAILY 04/30/20 Miglitol 25 mg PO DINNER 06/24/20 Prednisone 5 mg PO DAILY 06/24/20 potassium chloride 20 mEq 20 meq PO DAILY #90 tab 08/31/20 tablet,extended release Ondansetron [Zofran Odt] 4 mg PO Q8H PRN PRN #10 tab 09/20/20 Surgical History: Surgical History (Last Updated 06/25/20 @ 08:[address] Myrna Holland MD) H/O skin graft (Inactive) Z98.890 08/01/18 @ [facility] History of cardiac radiofrequency ablation (RFA) (Inactive) Onset Date: 01/09/17 Z98.890 Convergent hybrid Lt Atrial Ablation 01/12/17 History of coronary artery stent placement (Inactive) Onset Date: 04/07/19 Z95.5 PCI-thrombectomy and BMS- Distal RCA w/ 3.0 x 16 mm Rebel Stent 04/07/19 History of hysterectomy (Inactive) Z90.710 History of loop recorder (Inactive) Onset Date: 01/09/17 Z98.890 History of patent ductus arteriosus (Inactive) Z87.74 closure S/P laparoscopic cholecystectomy (Inactive) Z90.49 Status post laparoscopic [place] fundoplication (Inactive) Z98.890 Surgical History: cataract, cholecystectomy, hysterectomy, - Psychiatric History: Depression 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 Lives: Spouse/ Significant Other Smoking Status: Never smoker Alcohol: None Drugs: None - *Family History Maternal Family History: Family History (Last Reviewed 05/20/20 @ 10:14 by Gosia Lawson PA, PA) Mother Diabetes Brother Diabetes Myocardial infarction Cancer Son Hypertension Daughter Arthritis Diabetes Hypertension Brother Cancer History Items: No pertinent history Paternal Family History: Family History (Last Reviewed 05/20/20 @ 10:14 by Gosia BEGUM, PA) Mother Diabetes Brother Diabetes Myocardial infarction Cancer Son Hypertension Daughter Arthritis Diabetes Hypertension Brother Cancer History Items: No pertinent history Review of Systems Constitutional: Reports: Anorexia, Weakness. Denies: Chills, Fever Eyes: Denies: Blurred vision, Double vision, Drainage, Redness HEENT: Denies: Difficulty Hearing, Ear Pain, Eye Pain, Nasal Congestion, Sore Throat Cardiovascular: Denies: Chest Pain, Chest Pressure, Heaviness, Light Headedness, Palpitations, Syncope Respiratory: Denies: Cough, Pleuritic Pain, Shortness of Breath, Sputum production, Wheezing Gastrointestinal: Reports: Abdominal Pain, Diarrhea, Nausea, Vomiting. Denies: Constipation, Hematochezia, Melena Genitourinary: Denies: Dysuria, Frequency, Hematuria Musculoskeletal: Reports: Leg Pain. Denies: Arm Pain, Back Pain, Foot Pain Neurological: Denies: Balance problems, Double vision, Slurred speech, Confusion, Headaches, Numbness Psychiatric: Reports: Depression. Denies: Anxiety Endocrine: Denies: Change in Body Habitus, Polydipsia, Polyuria VTE Information - Inpt Only VTE Present on Admission: No VTE Mechan Device Prophylaxis: None VTE Pharm Prophylaxis ordered?: Yes - Physical Exam Vitals/I&O's: Vital Signs Temp Pulse Resp BP Pulse Ox 96.0 F L 103 H 21 H 137/82 H 97 09/20/20 23:21 09/20/20 23:21 09/20/20 23:21 09/20/20 23:21 09/20/20 23:21 Oxygen Delivery Method Room Air Weight: 195 lb Body Mass Index (BMI) 35.6 Finger Stick Blood Glucose 124 Intake and Output for Last 24 Hours 09/18/20 09/19/20 09/20/20 23:59 23:59 23:59 Intake Total 500 / 500 Balance 500 / 500 General: Alert, Oriented x3, Cooperative, - - She is in pain, nauseated. HEENT: Atraumatic, PERRLA, EOMI, Normocephalic Oral: Moist Mucosa, No Gingival or Mucosal Lesions/ Ulcerations Neck: Supple, No JVD, Negative Carotid Bruits, Trachea Midline, Thyroid Normal Size and Texture Lungs: Clear to auscultation, No rhonchi, No wheeze, No rales, Diminished Cardiovascular: Normal S1, Normal S2, PMI Normal, Irregular Rate Abdomen: Bowel Sounds Present, Soft, Non-Distended, No Hepato-splenomegaly, Tender - Epigastric tenderness, no guarding or rigidity. Extremities: No clubbing, No cyanosis, Diminished Peripheral Pulses, Edema - Trace edema., - - Both legs are cold, chronic. Peripheral pulses are difficult to palpate. No cyanosis. Skin: No rashes, No breakdown Lymphatic: No Cervical, Supraclavicular, or Inguinal Adenopathy Neurological: Cranial nerves II-XII grossly intact, Motor Exam 5/5 strength throughout Psych/Mental Status: Normal Affect, Appropriate, Alert and oriented to time, place, person, mood and affect Microbiology Past 72 Hours 09/20/20 19:37 Mucosa - Nose SARS-CoV-2 Antigen (Rapid) - Final Laboratory Results 09/20/20 20:30: Urine Color Yellow, Urine Clarity Clear, Urine pH 6.0, Ur Specific [place] 1.015, Urine Protein Negative, Urine Glucose (UA) Normal, Urine Ketones Negative, Urine Occult Blood 10 H, Urine Nitrite Negative, Urine Bilirubin Negative, Urine Urobilinogen Normal, Ur Leukocyte Esterase Negative, Urine RBC 0 SEEN, Urine WBC 0 SEEN, Ur Squamous Epith Cells 0 SEEN, Urine Bacteria RARE, Urine Mucus 0 SEEN 09/20/20 21:00: WBC 15.9 H, RBC 5.30, Hgb 15.5 H, Hct 50.2 H, MCV 94.7, MCH 29.2, MCHC 30.9 L, RDW Std Deviation 52.1 H, RDW Coeff of [place]ike 15.2 H, Plt Count 111 L, MPV 11.6, Immature Gran % (Auto) 0.400, Neut % (Auto) 85.2 H, Lymph % (Auto) 7.2 L, [place] % (Auto) 6.8, Eos % (Auto) 0.1, Baso % (Auto) 0.3, Absolute Neuts (auto) 13.5 H, Absolute Lymphs (auto) 1.15, Nucleated RBC % 0, Platelet Estimate SLT DEC, Plt Morphology Comment CLUMPED 09/20/20 21:25: Sodium 138, Potassium 4.3, Chloride 104, Carbon Dioxide 28.0, Anion Gap 6, BUN 29 H, Creatinine 1.47 H, Estim Creat Clear Calc 26.96, Est GFR (MDRD) Af Amer 45 L, Est GFR (MDRD) Non-Af 37 L, BUN/Creatinine Ratio 19.7, Glucose 166 H, Calcium 9.1, Total Bilirubin 1.20 H, AST 39 H, ALT 37, Alkaline Phosphatase 74, Troponin I < 0.015, Total Protein 7.4, Albumin 3.6, Globulin 3.8, Albumin/Globulin Ratio 0.9, Lipase 92 Clinical Impression(s) from Imaging Studies Abdomen/Pelvis CT 09/20/20 21:26 IMPRESSION: 1. No dilated loops of small bowel or bowel wall thickening. 2. Nonobstructing left nephrolithiasis. No hydronephrosis. Electronically Signed: Sanjay Lyle MD ([place]) at 21:56 EST , Service support , Chest X-Ray 09/20/20 21:35 IMPRESSION: Developing right lower lobe infiltrate or atelectasis. Electronically Signed: Sanjay Lyle MD ([place]) at 21:53 EST , Service support , Current Medications Metoprolol Tartrate (Metoprolol Tartrate 50 Mg Tablet) 50 mg PO X1 ONE Stop: 09/21/20 22:38 Assessment/Plan This is a 74 years old female patient presented to the emergency room because of epigastric pain, nausea, vomiting and diarrhea, no obvious intra-abdominal pathology identified, received IV fluids and IV antiemetics and she remained symptomatic with significant nausea and vomiting, had A. fib with RVR and she is being admitted for observation. #1 intractable nausea and vomiting/abdominal pain: CT scan abdomen and pelvis without contrast showed no acute intra-abdominal pathology. LFT revealed slight elevated bilirubin and AST, otherwise normal but patient had history of cholecystectomy. Lipase was normal. EKG revealed A. fib with RVR, no acute skin changes. Troponin is negative. Chest x-ray showed questionable pneumonia, I doubt it. Lung bases were visualized and were unremarkable on CT scan abdomen. Patient does have leukocytosis but she is on steroids. She has been afebrile. Plan: Admit to PCU for observation, clear liquids, advance diet as tolerated, IV fluids, IV Protonix twice daily, IV Zofran, IV Phenergan as needed, repeat CBC, CMP and lipase tomorrow morning, repeat chest x-ray PA and lateral tomorrow to rule out pneumonia again, PT OT evaluation and treatment. #2 A. fib with RVR: Initially, heart rate was up to 130s, received IV Cardizem bolus and p.o. metoprolol. Currently, heart rate is down to 80s to 90s, blood pressure stable. Continue metoprolol for rate control, she is not on anticoagulation. #3 left leg pain: She does have chronic bilateral leg pain but she mentioned that over the last 3 to 4 days, left leg pain is getting worse with numbness. Peripheral pulses are diminished. No cyanosis, both legs are cold to examination. I doubt acute limb ischemia. Recommend follow-up with vascular surgery as outpatient. #4 stage III chronic kidney disease: Baseline creatinine has been around 1.2 to 1.5 mg/dL, admission creatinine is 1.47, stable at baseline. #5 type 2 diabetes mellitus: Currently, she is not on antidiabetic medications. Blood glucose is 166. Plan for sliding scale, Accu-Cheks. #6 sarcoidosis: Stable, continue p.o. prednisone. #7 hypertension: Blood pressure stable, continue metoprolol and Aldactone. #8 obstructive sleep apnea: Continue BiPAP at night. #9 chronic bilateral lower extremity venous sufficiency/chronic healed wounds/leg ulcers status post skin graft: Currently, no open wounds, healed, no acute issues. #10 peripheral vascular disease: Plan as above, follow-up with vascular surgery as outpatient. #11 DVT prophylaxis: Subcu heparin. This note was generated with [employer] software. It may contain incorrect words, spelling, and punctuation that were not noted in checking the note before signing. OBSV E&M: [id number] Initial observation care L3
[2020-09-20 23:53] VITALS: BMI 36.1
[2020-09-20 23:54] VITALS: BMI 36.1
[2020-09-20] MEDS: proMETHazine 25 MG/ML Syringe 6.25 MG IV (23:55)
[2020-09-21] VITALS (18 sets, daily range): BP systolic 102–157; BP diastolic 59–94; PULSE 63–121; RESP 16–18; TEMP 36.4–36.8; O2SAT 94–98
[2020-09-21] MEDS: Lactated Ringers 1,000 ML 75 ML IV ×2 (00:04→14:48)
--- NOTE | 2020-09-21 00:42 | PCS.PANDOC ---
PANDEMIC DOCUMENTATION INITIATED: Date: 09/20/20 Time: 23:45
[2020-09-21 06:13] LABS: Absolute Lymphocyte Count 1.15 X10^3/uL (0.83-4.51); Absolute Neutrophil Count 12.2 X10^3/uL (2.0-7.7); Basophil# 0.03 X10^3/uL; Basophil% 0.2 % (0-1); Eosinophil# 0.01 X10^3/uL; Eosinophils% 0.1 % (0-5); Hematocrit 47.9 % (37-47); Hemoglobin 14.9 g/dL (12.0-15.0); Lymphocyte # 1.15 X10^3/ul (4.0); Lymphocyte % 7.9 % (19-41); Mean Corp Hgb Conc 31.1 g/dL (32-36); Mean Corpuscular Volume 93.4 fL (81-99); Mean Platelet Vol. 11.3 fl (6.2-12.0); Monocyte# 1.16 X10^3/uL; Monocyte% 7.9 % (0-10); NRBC Flagged by Analyzer 0 % (0-5); Neutrophil % 83.6 % (47-70); Platelet Count 142 K/mm3 (150-450); RBC Distribution Width CV 15.1 % (11.6-14.6); RBC Distribution Width SD 51.8 fl (35.1-43.9); Red Blood Count 5.13 M/mm3 (4.2-5.4); White Blood Count 14.6 K/mm3 (4.4-11.0)
[2020-09-21] MEDS: 0.9% Saline Lock 10 ML Syringe IV (06:36)
[2020-09-21 06:46] LABS: AST(SGOT) 28 U/L (15-37); Alanine Aminotransfer ALT/SGPT 32 U/L (13-56); Albumin, Serum 3.6 g/dL (3.2-5.0); Alkaline Phosphatase 73 U/L (45-117); Anion Gap 10 (5-15); BUN 29 mg/dL (7-18); Calcium,Total 9.2 mg/dL (8.5-10.1); Chloride 103 mmol/L (98-107); Creatinine, Serum 1.38 mg/dL (0.55-1.02); EST Glomerular Filtration Rate 40 mL/min (>60); Est Glom Filt Rate - Afr Amer 48 mL/min (>60); Estimated Creatinine Clearance 28.72 ml/min; Globulin 3.5 g/dL (2.2-4.2); Glucose 145 mg/dL (74-106); Lipase 100 U/L (73-393); Potassium 4.2 mmol/L (3.5-5.1); Protein, Total 7.1 g/dL (6.4-8.2); Sodium Level 139 mmol/L (136-145)
[2020-09-21 06:50] LABS: Bedside Glucose 126 mg/dL (70-110)
--- NOTE | 2020-09-21 07:30 | PCM.PN.HOSP ---
Vitals/I&O's: Vital Signs Temp Pulse Resp BP Pulse Ox 98.2 F 98 16 113/73 95 09/21/20 06:00 09/21/20 06:00 09/21/20 06:00 09/21/20 06:00 09/21/20 06:00 Oxygen Delivery Method Room Air Weight: 197 lb 8.547 oz Body Mass Index (BMI) 36.1 Finger Stick Blood Glucose 124 Intake and Output for Last 24 Hours 09/19/20 09/20/20 09/21/20 23:59 23:59 23:59 Intake Total 500 / 500 125 / 125 Balance 500 / 500 125 / 125 Microbiology Past 72 Hours 09/20/20 19:37 Mucosa - Nose SARS-CoV-2 Antigen (Rapid) - Final Laboratory Results 09/20/20 20:30: Urine Color Yellow, Urine Clarity Clear, Urine pH 6.0, Ur Specific [place] 1.015, Urine Protein Negative, Urine Glucose (UA) Normal, Urine Ketones Negative, Urine Occult Blood 10 H, Urine Nitrite Negative, Urine Bilirubin Negative, Urine Urobilinogen Normal, Ur Leukocyte Esterase Negative, Urine RBC 0 SEEN, Urine WBC 0 SEEN, Ur Squamous Epith Cells 0 SEEN, Urine Bacteria RARE, Urine Mucus 0 SEEN 09/20/20 21:00: WBC 15.9 H, RBC 5.30, Hgb 15.5 H, Hct 50.2 H, MCV 94.7, MCH 29.2, MCHC 30.9 L, RDW Std Deviation 52.1 H, RDW Coeff of Heike 15.2 H, Plt Count 111 L, MPV 11.6, Immature Gran % (Auto) 0.400, Neut % (Auto) 85.2 H, Lymph % (Auto) 7.2 L, Hayes % (Auto) 6.8, Eos % (Auto) 0.1, Baso % (Auto) 0.3, Absolute Neuts (auto) 13.5 H, Absolute Lymphs (auto) 1.15, Nucleated RBC % 0, Platelet Estimate SLT DEC, Plt Morphology Comment CLUMPED 09/20/20 21:25: Sodium 138, Potassium 4.3, Chloride 104, Carbon Dioxide 28.0, Anion Gap 6, BUN 29 H, Creatinine 1.47 H, Estim Creat Clear Calc 26.96, Est GFR (MDRD) Af Amer 45 L, Est GFR (MDRD) Non-Af 37 L, BUN/Creatinine Ratio 19.7, Glucose 166 H, Calcium 9.1, Total Bilirubin 1.20 H, AST 39 H, ALT 37, Alkaline Phosphatase 74, Troponin I < 0.015, Total Protein 7.4, Albumin 3.6, Globulin 3.8, Albumin/Globulin Ratio 0.9, Lipase 92 09/21/20 05:55: WBC 14.6 H, RBC 5.13, Hgb 14.9, Hct 47.9 H, MCV 93.4, MCH 29.0, MCHC 31.1 L, RDW Std Deviation 51.8 H, RDW Coeff of Heike 15.1 H, Plt Count 142 L, MPV 11.3, Immature Gran % (Auto) 0.300, Neut % (Auto) 83.6 H, Lymph % (Auto) 7.9 L, Hayes % (Auto) 7.9, Eos % (Auto) 0.1, Baso % (Auto) 0.2, Absolute Neuts (auto) 12.2 H, Absolute Lymphs (auto) 1.15, Nucleated RBC % 0 09/21/20 05:55: Sodium 139, Potassium 4.2, Chloride 103, Carbon Dioxide 26.0, Anion Gap 10, BUN 29 H, Creatinine 1.38 H, Estim Creat Clear Calc 28.72, Est GFR (MDRD) Af Amer 48 L, Est GFR (MDRD) Non-Af 40 L, BUN/Creatinine Ratio 21.0 H, Glucose 145 H, Calcium 9.2, Total Bilirubin 1.20 H, AST 28, ALT 32, Alkaline Phosphatase 73, Total Protein 7.1, Albumin 3.6, Globulin 3.5, Albumin/Globulin Ratio 1.0, Lipase 100 09/21/20 06:35: POC Glucose 126 H Current Medications Acetaminophen (Acetaminophen 325 Mg Tablet) 650 mg PO Q6H PRN PRN PRN Reason: Pain Score 1-10/Temp > 100.7 F Aspirin (Aspirin E.C. 81 Mg Tablet) 81 mg PO DAILY@0800 [facility] Atorvastatin Calcium (Atorvastatin Calcium 40 Mg Tablet) 40 mg PO QHS [facility] Heparin Sodium (Porcine) (Heparin Injection (Vial) 5,000 Unit/Ml Vial) 5,000 unit SC Q12 [facility] Lactated Ringer's () 1,000 mls @ 75 mls/hr IV .[id number] [facility] Last Infusion: 09/21/20 00:34 Dose: 75 mls/hr Documented by: Pantoprazole Sodium 40 mg/ (Sodium Chloride) 110 mls @ 330 mls/hr IV Q12 [facility] Last Infusion: 09/21/20 00:34 Dose: Infused Documented by: Sodium Chloride () 250 mls @ 15 mls/hr IV .[id number] PRN PRN Reason: Saline Flush Sodium Chloride () 250 mls @ 15 mls/hr IV .[id number] PRN PRN Reason: Additional IVPB Infusion Insulin Human Lispro (Insulin Lispro 100 Unit/Ml Insuln.Pen) 0 unit SC ACHS [facility]; Protocol Last Admin: 09/21/20 06:36 Dose: Not Given Documented by: Metoprolol Tartrate (Metoprolol Tartrate 50 Mg Tablet) 50 mg PO BID [facility] Miglitol (Miglitol 25 Mg Tablet) 25 mg PO DINNER [facility] Morphine Sulfate (Morphine 2 Mg/Ml Syringe) 2 mg IV Q4H PRN PRN PRN Reason: Pain Score 6-10 Ondansetron HCl (Ondansetron 4 Mg/2 Ml Vial) 4 mg IV Q8H PRN PRN PRN Reason: NAUSEA/VOMITING Prednisone (Prednisone 5 Mg Tablet) 5 mg PO DAILYCM [facility] Promethazine HCl (Promethazine 25 Mg/Ml Syringe) 6.25 mg IV Q6H PRN PRN PRN Reason: NAUSEA/VOMITING Last Admin: 09/20/20 23:55 Dose: 6.25 mg Documented by: Sodium Chloride (0.9% Saline Lock 10 Ml Syringe) 10 - 40 ml IV UD PRN PRN Reason: SALINE FLUSH Last Admin: 09/21/20 06:36 Dose: 10 ml Documented by: Spironolactone (Spironolactone 25 Mg Tablet) 25 mg PO DAILY [facility] STROKE Vital Signs/Narrative: Vital Signs Temp Pulse Resp BP Pulse Ox 09/21/20 06:00 98.2 F 98 16 113/73 95 Medical Necessity - Tobacco Use Smoking Status: Never smoker Assessment/Plan This is a 74 years old female patient presented to the emergency room because of epigastric pain, nausea, vomiting and diarrhea, no obvious intra-abdominal pathology identified, received IV fluids and IV antiemetics and she remained symptomatic with significant nausea and vomiting, had A. fib with RVR and she is being admitted for observation. #1 intractable nausea and vomiting/abdominal pain: CT scan abdomen and pelvis without contrast showed no acute intra-abdominal pathology. LFT revealed slight elevated bilirubin and AST, otherwise normal but patient had history of cholecystectomy. Lipase was normal. EKG revealed A. fib with RVR, no acute skin changes. Troponin is negative. Chest x-ray showed questionable pneumonia, I doubt it. Lung bases were visualized and were unremarkable on CT scan abdomen. Patient does have leukocytosis but she is on steroids. She has been afebrile. Plan: Admit to PCU for observation, clear liquids, advance diet as tolerated, IV fluids, IV Protonix twice daily, IV Zofran, IV Phenergan as needed, repeat CBC, CMP and lipase tomorrow morning, repeat chest x-ray PA and lateral tomorrow to rule out pneumonia again, PT OT evaluation and treatment. #2 A. fib with RVR: Initially, heart rate was up to 130s, received IV Cardizem bolus and p.o. metoprolol. Currently, heart rate is down to 80s to 90s, blood pressure stable. Continue metoprolol for rate control, she is not on anticoagulation. #3 left leg pain: She does have chronic bilateral leg pain but she mentioned that over the last 3 to 4 days, left leg pain is getting worse with numbness. Peripheral pulses are diminished. No cyanosis, both legs are cold to examination. I doubt acute limb ischemia. Recommend follow-up with vascular surgery as outpatient. #4 stage III chronic kidney disease: Baseline creatinine has been around 1.2 to 1.5 mg/dL, admission creatinine is 1.47, stable at baseline. #5 type 2 diabetes mellitus: Currently, she is not on antidiabetic medications. Blood glucose is 166. Plan for sliding scale, Accu-Cheks. #6 sarcoidosis: Stable, continue p.o. prednisone. #7 hypertension: Blood pressure stable, continue metoprolol and Aldactone. #8 obstructive sleep apnea: Continue BiPAP at night. #9 chronic bilateral lower extremity venous sufficiency/chronic healed wounds/leg ulcers status post skin graft: Currently, no open wounds, healed, no acute issues. #10 peripheral vascular disease: Plan as above, follow-up with vascular surgery as outpatient. #11 DVT prophylaxis: Subcu heparin. Clinical Impression(s) from Imaging Studies Abdomen/Pelvis CT 09/20/20 21:26 IMPRESSION: 1. No dilated loops of small bowel or bowel wall thickening. 2. Nonobstructing left nephrolithiasis. No hydronephrosis. Chest X-Ray 09/20/20 21:35 IMPRESSION: Developing right lower lobe infiltrate or atelectasis. Microbiology Past 72 Hours 09/20/20 19:37 Mucosa - Nose SARS-CoV-2 Antigen (Rapid) - Final Laboratory Results 09/20/20 20:30: Urine Color Yellow, Urine Clarity Clear, Urine pH 6.0, Ur Specific [place] 1.015, Urine Protein Negative, Urine Glucose (UA) Normal, Urine Ketones Negative, Urine Occult Blood 10 H, Urine Nitrite Negative, Urine Bilirubin Negative, Urine Urobilinogen Normal, Ur Leukocyte Esterase Negative, Urine RBC 0 SEEN, Urine WBC 0 SEEN, Ur Squamous Epith Cells 0 SEEN, Urine Bacteria RARE, Urine Mucus 0 SEEN 09/20/20 21:00: WBC 15.9 H, RBC 5.30, Hgb 15.5 H, Hct 50.2 H, MCV 94.7, MCH 29.2, MCHC 30.9 L, RDW Std Deviation 52.1 H, RDW Coeff of Heike 15.2 H, Plt Count 111 L, MPV 11.6, Immature Gran % (Auto) 0.400, Neut % (Auto) 85.2 H, Lymph % (Auto) 7.2 L, Hayes % (Auto) 6.8, Eos % (Auto) 0.1, Baso % (Auto) 0.3, Absolute Neuts (auto) 13.5 H, Absolute Lymphs (auto) 1.15, Nucleated RBC % 0, Platelet Estimate SLT DEC, Plt Morphology Comment CLUMPED 09/20/20 21:25: Sodium 138, Potassium 4.3, Chloride 104, Carbon Dioxide 28.0, Anion Gap 6, BUN 29 H, Creatinine 1.47 H, Estim Creat Clear Calc 26.96, Est GFR (MDRD) Af Amer 45 L, Est GFR (MDRD) Non-Af 37 L, BUN/Creatinine Ratio 19.7, Glucose 166 H, Calcium 9.1, Total Bilirubin 1.20 H, AST 39 H, ALT 37, Alkaline Phosphatase 74, Troponin I < 0.015, Total Protein 7.4, Albumin 3.6, Globulin 3.8, Albumin/Globulin Ratio 0.9, Lipase 92 09/21/20 05:55: WBC 14.6 H, RBC 5.13, Hgb 14.9, Hct 47.9 H, MCV 93.4, MCH 29.0, MCHC 31.1 L, RDW Std Deviation 51.8 H, RDW Coeff of Heike 15.1 H, Plt Count 142 L, MPV 11.3, Immature Gran % (Auto) 0.300, Neut % (Auto) 83.6 H, Lymph % (Auto) 7.9 L, Hayes % (Auto) 7.9, Eos % (Auto) 0.1, Baso % (Auto) 0.2, Absolute Neuts (auto) 12.2 H, Absolute Lymphs (auto) 1.15, Nucleated RBC % 0 09/21/20 05:55: Sodium 139, Potassium 4.2, Chloride 103, Carbon Dioxide 26.0, Anion Gap 10, BUN 29 H, Creatinine 1.38 H, Estim Creat Clear Calc 28.72, Est GFR (MDRD) Af Amer 48 L, Est GFR (MDRD) Non-Af 40 L, BUN/Creatinine Ratio 21.0 H, Glucose 145 H, Calcium 9.2, Total Bilirubin 1.20 H, AST 28, ALT 32, Alkaline Phosphatase 73, Total Protein 7.1, Albumin 3.6, Globulin 3.5, Albumin/Globulin Ratio 1.0, Lipase 100 09/21/20 06:35: POC Glucose 126 H
--- NOTE | 2020-09-21 08:15 | RAD_ITS ---
STUDY: X-RAY CHEST REASON FOR EXAM: Female, 74 years old. Leukocytosis, N/V/D, AFIB, RVR TECHNIQUE: Frontal and lateral views of the chest. COMPARISON: Yesterday FINDINGS: A Reveal insertable nurse monitoring projects over the left chest. EKG leads project over the chest. Localized opacity in the right lung base projecting over the right heart border is stable since previous day. There is no demonstrated pleural abnormality. There is mild cardiac enlargement. Normal mediastinum and kenn. Normal visualized pulmonary arteries. There is atherosclerotic calcification of the aortic arch with tortuosity. No acute bony process. There are degenerative changes of the thoracic spine. There is no demonstrated abnormality of the visualized soft tissue structures of the upper abdomen. RAD/Chest PA and Lateral IMPRESSION: Stable right lower lobe infiltrate or atelectasis Electronically Signed: Sanjay Lyle MD ([place]) at 8:38 EST , Service support ,
[2020-09-21] MEDS: Aspirin E.C. 81 MG Tablet PO (08:38)
[2020-09-21] MEDS: predniSONE 5 MG Tablet PO (08:38)
[2020-09-21] MEDS: Heparin Injection (Vial) 5,000 UNIT/ML VIAL 5000 UNIT SC ×2 (09:56→20:35)
[2020-09-21] MEDS: Spironolactone 25 MG Tablet PO (09:57)
[2020-09-21] MEDS: Metoprolol Tartrate 50 MG Tablet PO ×2 (09:58→20:35)
[2020-09-21 11:26] LABS: Bedside Glucose 126 mg/dL (70-110)
--- NOTE | 2020-09-21 13:31 | PN_ITS ---
<Pola Leung - Last Filed: 09/21/20 13:31> Reason for Visit: intractable nausea/vomiting/diarrhea Subjective: Overall improved. Tolerating clears. No further diarrhea today. Some dry heaving overnight. No emesis yet this AM. No fever/chills. Ongoing midepigastric pain. Vitals/I&O's: Vital Signs Temp Pulse Resp BP Pulse Ox 97.7 F L 85 18 128/75 H 95 09/21/20 12:50 09/21/20 12:50 09/21/20 12:50 09/21/20 12:50 09/21/20 12:50 Oxygen Delivery Method Room Air Weight: 197 lb 8.547 oz Body Mass Index (BMI) 36.1 Finger Stick Blood Glucose 124 Intake and Output for Last 24 Hours 09/19/20 09/20/20 09/21/20 23:59 23:59 23:59 Intake Total 500 / 500 1220 / 1220 Output Total 350 / 350 Balance 500 / 500 870 / 870 General: Alert, Oriented x3, Cooperative HEENT: Atraumatic, PERRLA, EOMI, Normocephalic Neck: Supple, No JVD, Negative Carotid Bruits Lungs: Clear to auscultation, Normal air movement Cardiovascular: No murmurs, Irregular Rate Abdomen: Bowel Sounds Present, Soft, Tender - midepigastric region Extremities: No edema, Capillary Refill Less than 3 Seconds Skin: No rashes, No breakdown Musculoskeletal: No Tenderness to Palpation of Joints or Extremities Neurological: Cranial nerves II-XII grossly intact Psych/Mental Status: Normal Affect, Appropriate, Alert and oriented to time, place, person, mood and affect Microbiology Past 72 Hours 09/20/20 19:37 Mucosa - Nose SARS-CoV-2 Antigen (Rapid) - Final Laboratory Results 09/20/20 20:30: Urine Color Yellow, Urine Clarity Clear, Urine pH 6.0, Ur Specific [place] 1.015, Urine Protein Negative, Urine Glucose (UA) Normal, Urine Ketones Negative, Urine Occult Blood 10 H, Urine Nitrite Negative, Urine Bilirubin Negative, Urine Urobilinogen Normal, Ur Leukocyte Esterase Negative, Urine RBC 0 SEEN, Urine WBC 0 SEEN, Ur Squamous Epith Cells 0 SEEN, Urine Bacteria RARE, Urine Mucus 0 SEEN 09/20/20 21:00: WBC 15.9 H, RBC 5.30, Hgb 15.5 H, Hct 50.2 H, MCV 94.7, MCH 29.2, MCHC 30.9 L, RDW Std Deviation 52.1 H, RDW Coeff of Heike 15.2 H, Plt Count 111 L, MPV 11.6, Immature Gran % (Auto) 0.400, Neut % (Auto) 85.2 H, Lymph % (Auto) 7.2 L, Burt % (Auto) 6.8, Eos % (Auto) 0.1, Baso % (Auto) 0.3, Absolute Neuts (auto) 13.5 H, Absolute Lymphs (auto) 1.15, Nucleated RBC % 0, Platelet Estimate SLT DEC, Plt Morphology Comment CLUMPED 09/20/20 21:25: Sodium 138, Potassium 4.3, Chloride 104, Carbon Dioxide 28.0, Anion Gap 6, BUN 29 H, Creatinine 1.47 H, Estim Creat Clear Calc 26.96, Est GFR (MDRD) Af Amer 45 L, Est GFR (MDRD) Non-Af 37 L, BUN/Creatinine Ratio 19.7, Glucose 166 H, Calcium 9.1, Total Bilirubin 1.20 H, AST 39 H, ALT 37, Alkaline Phosphatase 74, Troponin I < 0.015, Total Protein 7.4, Albumin 3.6, Globulin 3.8, Albumin/Globulin Ratio 0.9, Lipase 92 09/21/20 05:55: WBC 14.6 H, RBC 5.13, Hgb 14.9, Hct 47.9 H, MCV 93.4, MCH 29.0, MCHC 31.1 L, RDW Std Deviation 51.8 H, RDW Coeff of Heike 15.1 H, Plt Count 142 L, MPV 11.3, Immature Gran % (Auto) 0.300, Neut % (Auto) 83.6 H, Lymph % (Auto) 7.9 L, Burt % (Auto) 7.9, Eos % (Auto) 0.1, Baso % (Auto) 0.2, Absolute Neuts (auto) 12.2 H, Absolute Lymphs (auto) 1.15, Nucleated RBC % 0 09/21/20 05:55: Sodium 139, Potassium 4.2, Chloride 103, Carbon Dioxide 26.0, Anion Gap 10, BUN 29 H, Creatinine 1.38 H, Estim Creat Clear Calc 28.72, Est GFR (MDRD) Af Amer 48 L, Est GFR (MDRD) Non-Af 40 L, BUN/Creatinine Ratio 21.0 H, Glucose 145 H, Calcium 9.2, Total Bilirubin 1.20 H, AST 28, ALT 32, Alkaline Phosphatase 73, Total Protein 7.1, Albumin 3.6, Globulin 3.5, Albumin/Globulin Ratio 1.0, Lipase 100 09/21/20 06:35: POC Glucose 126 H 09/21/20 11:21: POC Glucose 126 H Current Medications Acetaminophen (Acetaminophen 325 Mg Tablet) 650 mg PO Q6H PRN PRN PRN Reason: Pain Score 1-10/Temp > 100.7 F Aspirin (Aspirin E.C. 81 Mg Tablet) 81 mg PO DAILY@0800 [facility] Last Admin: 09/21/20 08:38 Dose: 81 mg Documented by: Atorvastatin Calcium (Atorvastatin Calcium 40 Mg Tablet) 40 mg PO QHS [facility] Heparin Sodium (Porcine) (Heparin Injection (Vial) 5,000 Unit/Ml Vial) 5,000 unit SC Q12 [facility] Last Admin: 09/21/20 09:56 Dose: 5,000 unit Documented by: Lactated Ringer's () 1,000 mls @ 75 mls/hr IV .[id number] [facility] Last Infusion: 09/21/20 08:34 Dose: Infused Documented by: Pantoprazole Sodium 40 mg/ (Sodium Chloride) 110 mls @ 330 mls/hr IV Q12 [facility] Last Infusion: 09/21/20 10:39 Dose: Infused Documented by: Sodium Chloride () 250 mls @ 15 mls/hr IV .[id number] PRN PRN Reason: Saline Flush Sodium Chloride () 250 mls @ 15 mls/hr IV .[id number] PRN PRN Reason: Additional IVPB Infusion Insulin Human Lispro (Insulin Lispro 100 Unit/Ml Insuln.Pen) 0 unit SC [facility]; Protocol Last Admin: 09/21/20 11:42 Dose: Not Given Documented by: Metoprolol Tartrate (Metoprolol Tartrate 50 Mg Tablet) 50 mg PO BID [facility] Last Admin: 09/21/20 09:58 Dose: 50 mg Documented by: Morphine Sulfate (Morphine 2 Mg/Ml Syringe) 2 mg IV Q4H PRN PRN PRN Reason: Pain Score 6-10 Ondansetron HCl (Ondansetron 4 Mg/2 Ml Vial) 4 mg IV Q8H PRN PRN PRN Reason: NAUSEA/VOMITING Prednisone (Pred[facility] 5 Mg Tablet) [facility] Last Admin: 09/21/20 08:38 Dose: 5 mg Documented by: Promethazine HCl (Promethazine 25 Mg/Ml Syringe) 6.25 mg IV Q6H PRN PRN PRN Reason: NAUSEA/VOMITING Last Admin: 09/20/20 23:55 Dose: 6.25 mg Documented by: Sodium Chloride (0.9% Saline Lock 10 Ml Syringe) 10 - 40 ml IV UD PRN PRN Reason: SALINE FLUSH Last Admin: 09/21/20 06:36 Dose: 10 ml Documented by: Spironolactone (Spironolactone 25 Mg Tablet) 25 mg PO DAILY [facility] Last Admin: 09/21/20 09:57 Dose: 25 mg Documented by: STROKE Vital Signs/Narrative: Vital Signs Temp Pulse Resp BP Pulse Ox 09/21/20 12:50 97.7 F L 85 18 128/75 H 95 09/21/20 10:00 85 09/21/20 09:58 82 Medical Necessity - Tobacco Use Smoking Status: Never smoker Assessment/Plan 1. Intractable nausea/vomiting/diarrhea - improved. Suspect acute viral gastroenteritis. C diff pending. Advance diet with caution. Lipase neg. CT abdomen negative. Pt s/p cholecystectomy. 2. Afib RVR - 2/2 above and associated dehydration - rate improved. continue home meds. Pt no on anticoagulation 2/2 hx GI bleeding. Continue metoprolol. 3. Midepigastric pain - hx peptic ulcers, hiatal hernia, GERD - continue PPI. F/u as outpatient with general surgery for repeat endoscopy. 4. CKDIII - improved overnight with IVF- repeat AM BMP 5. T2DM - miglitol held for #1. Continue SSI. 6. Sarcoidosis - continue po prednisone 7. LYN - bipap qhs 8. Mild thrombocytopenia - trend given heparin use. 9. RLE swelling - venous duplex pending. 10. Chronic venous stasis wounds - s/p multiple grafts. appear to be well healed at this time DVT ppx: Heparin DC planning: likely home tomorrow no needs This patient was seem by Pola Leung PA-C under the supervision of Dr. Lopez. <JohnFrederic - Last Filed: 09/21/20 14:44> Reason for Visit: Follow-up for intractable nausea, vomiting and diarrhea and epigastric pain. Patient has multiple comorbidities Objective: Seen and examined. Patient has history of PDA status post repair in her 20s, cholecystectomy, hiatus hernia possible ulcer surgery in 1980s. She had GI bleed 1 to 2 years ago and had colonoscopy by Dr. Alvarado and at that time Xarelto was discontinued. She complained of nausea, vomiting and diarrhea for 1 day prior to admission. She is noted bowel movement after admission. Denies GI bleed. History of sick sinus syndrome status post loop recorder. Has significant peripheral arterial occlusive disease, chronic venous stasis disease status post skin graft in both lower legs secondary to chronic venous ulcer. History of sarcoidosis and secondary pulmonary hypertension. Physical exam General: Alert, Oriented x3, Cooperative HEENT: Atraumatic, PERRLA, EOMI, Normocephalic Oral: No Gingival or Mucosal Lesions/ Ulcerations Neck: Supple, No JVD, Negative Carotid Bruits Lungs: Air entry diminished in bilateral lung bases. No crepitation/rhonchi. Cardiovascular: Irregular rate and rhythm, Normal S1, Normal S2, No murmurs. Has loop recorder. Abdomen: Bowel Sounds Present, Soft, Non Tender, Non-Distended : No renal angle tenderness. No suprapubic tenderness. Extremities: Bilateral lower extremity edema, right more than left, Capillary Refill Less than 3 Seconds Skin: Scarring of both lower legs after his skin graft. Musculoskeletal: No Tenderness to Palpation of Joints or Extremities Neurological: Cranial nerves II-XII grossly intact, Deep Tendon Reflexes 2+/4 and Symmetrical, Neuro grossly intact Psych/Mental Status: Normal Affect, Appropriate. Vitals/I&O's: Vital Signs Temp Pulse Resp BP Pulse Ox 97.7 F L 85 18 128/75 H 95 09/21/20 12:50 09/21/20 12:50 09/21/20 12:50 09/21/20 12:50 09/21/20 12:50 Oxygen Delivery Method Room Air Weight: 197 lb 8.547 oz Body Mass Index (BMI) 36.1 Finger Stick Blood Glucose 124 Intake and Output for Last 24 Hours 09/19/20 09/20/2009/21/20 23:59 23:59 23:59 Intake Total 500 / 500 1220 / 1220 Output Total 350 / 350 Balance 500 / 500 870 / 870 Microbiology Past 72 Hours 09/20/20 19:37 Mucosa - Nose SARS-CoV-2 Antigen (Rapid) - Final Laboratory Results 09/20/20 20:30: Urine Color Yellow, Urine Clarity Clear, Urine pH 6.0, Ur Specific [place] 1.015, Urine Protein Negative, Urine Glucose (UA) Normal, Urine Ketones Negative, Urine Occult Blood 10 H, Urine Nitrite Negative, Urine Bilirubin Negative, Urine Urobilinogen Normal, Ur Leukocyte Esterase Negative, Urine RBC 0 SEEN, Urine WBC 0 SEEN, Ur Squamous Epith Cells 0 SEEN, Urine Bacteria RARE, Urine Mucus 0 SEEN 09/20/20 21:00: WBC 15.9 H, RBC 5.30, Hgb 15.5 H, Hct 50.2 H, MCV 94.7, MCH 29.2, MCHC 30.9 L, RDW Std Deviation 52.1 H, RDW Coeff of Heike 15.2 H, Plt Count 111 L, MPV 11.6, Immature Gran % (Auto) 0.400, Neut % (Auto) 85.2 H, Lymph % (Auto) 7.2 L, Burt % (Auto) 6.8, Eos % (Auto) 0.1, Baso % (Auto) 0.3, Absolute Neuts (auto) 13.5 H, Absolute Lymphs (auto) 1.15, Nucleated RBC % 0, Platelet Estimate SLT DEC, Plt Morphology Comment CLUMPED 09/20/20 21:25: Sodium 138, Potassium 4.3, Chloride 104, Carbon Dioxide 28.0, Anion Gap 6, BUN 29 H, Creatinine 1.47 H, Estim Creat Clear Calc 26.96, Est GFR (MDRD) Af Amer 45 L, Est GFR (MDRD) Non-Af 37 L, BUN/Creatinine Ratio 19.7, Glucose 166 H, Calcium 9.1, Total Bilirubin 1.20 H, AST 39 H, ALT 37, Alkaline Phosphatase 74, Troponin I < 0.015, Total Protein 7.4, Albumin 3.6, Globulin 3.8, Albumin/Globulin Ratio 0.9, Lipase 92 09/21/20 05:55: WBC 14.6 H, RBC 5.13, Hgb 14.9, Hct 47.9 H, MCV 93.4, MCH 29.0, MCHC 31.1 L, RDW Std Deviation 51.8 H, RDW Coeff of Heike 15.1 H, Plt Count 142 L, MPV 11.3, Immature Gran % (Auto) 0.300, Neut % (Auto) 83.6 H, Lymph % (Auto) 7.9 L, Burt % (Auto) 7.9, Eos % (Auto) 0.1, Baso % (Auto) 0.2, Absolute Neuts (auto) 12.2 H, Absolute Lymphs (auto) 1.15, Nucleated RBC % 0 09/21/20 05:55: Sodium 139, Potassium 4.2, Chloride 103, Carbon Dioxide 26.0, Anion Gap 10, BUN 29 H, Creatinine 1.38 H, Estim Creat Clear Calc 28.72, Est GFR (MDRD) Af Amer 48 L, Est GFR (MDRD) Non-Af 40 L, BUN/Creatinine Ratio 21.0 H, Glucose 145 H, Calcium 9.2, Total Bilirubin 1.20 H, AST 28, ALT 32, Alkaline Phosphatase 73, Total Protein 7.1, Albumin 3.6, Globulin 3.5, Albumin/Globulin Ratio 1.0, Lipase 100 09/21/20 06:35: POC Glucose 126 H 09/21/20 11:21: POC Glucose 126 H Current Medications Acetaminophen (Acetaminophen 325 Mg Tablet) 650 mg PO Q6H PRN PRN PRN Reason: Pain Score 1-10/Temp > 100.7 F Aspirin (Aspirin E.C. 81 Mg Tablet) 81 mg PO DAILY@0800 [facility] Last Admin: 09/21/20 08:38 Dose: 81 mg Documented by: Atorvastatin Calcium (Atorvastatin Calcium 40 Mg Tablet) 40 mg PO QHS [facility] Heparin Sodium (Porcine) (Heparin Injection (Vial) 5,000 Unit/Ml Vial) 5,000 unit SC Q12 [facility] Last Admin: 09/21/20 09:56 Dose: 5,000 unit Documented by: Lactated Ringer's () 1,000 mls @ 75 mls/hr IV .[id number] [facility] Last Infusion: 09/21/20 08:34 Dose: Infused Documented by: Sodium Chloride () 250 mls @ 15 mls/hr IV .[id number] PRN PRN Reason: Saline Flush Sodium Chloride () 250 mls @ 15 mls/hr IV .[id number] PRN PRN Reason: Additional IVPB Infusion Insulin Human Lispro (Insulin Lispro 100 Unit/Ml Insuln.Pen) 0 unit SC ACHS [facility]; Protocol Last Admin: 09/21/20 11:42 Dose: Not Given Documented by: Metoprolol Tartrate (Metoprolol Tartrate 50 Mg Tablet) 50 mg PO BID [facility] Last Admin: 09/21/20 09:58 Dose: 50 mg Documented by: Morphine Sulfate (Morphine 2 Mg/Ml Syringe) 2 mg IV Q4H PRN PRN PRN Reason: Pain Score 6-10 Ondansetron HCl (Ondansetron 4 Mg/2 Ml Vial) 4 mg IV Q8H PRN PRN PRN Reason: NAUSEA/VOMITING Pantoprazole Sodium (Pantoprazole Sodium 40 Mg Tablet) 40 mg PO BID [facility] Prednisone (Pred[facility]one 5 Mg Tablet) [facility] Last Admin: 09/21/20 08:38 Dose: 5 mg Documented by: Promethazine HCl (Promethazine 25 Mg/Ml Syringe) 6.25 mg IV Q6H PRN PRN PRN Reason: NAUSEA/VOMITING Last Admin: 09/20/20 23:55 Dose: 6.25 mg Documented by: Sodium Chloride (0.9% Saline Lock 10 Ml Syringe) 10 - 40 ml IV UD PRN PRN Reason: SALINE FLUSH Last Admin: 09/21/20 06:36 Dose: 10 ml Documented by: Spironolactone (Spironolactone 25 Mg Tablet) 25 mg PO DAILY [facility] Last Admin: 09/21/20 09:57 Dose: 25 mg Documented by: STROKE Vital Signs/Narrative: Vital Signs Temp Pulse Resp BP Pulse Ox 09/21/20 12:50 97.7 F L 85 18 128/75 H 95 Assessment/Plan This patient was seen in conjunction with Pola BEGUM. I have independently interviewed and examined the patient and reviewed pertinent history, examination findings, laboratory and plan of management. I have reviewed the note and agree with the documented findings with the few additional points. In brief, patient is 73 female admitted with interval nausea, vomiting and diarrhea and epigastric pain. Patient diarrhea started. SARS-CoV-2 is negative. Patient not had bowel movement therefore C. difficile and enteric bacteriology panel are pending. Lipase negative. CT abdomen negative for acute intra-abdominal abnormality. Chest x-ray shows developing right lower lobe infiltrate or atelectasis but CT abdomen lower cuts negative for any consolidation. Patient also has A. fib with RVR, sick sinus syndrome status post loop recorder. Patient had 2D echo in June 2019 as reported below. Interpretation Summary Segmental dysfunction with 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 (see wall motion). The estimated ejection fraction is 55 %. The left atrium is moderately enlarged. The right atrium is moderately enlarged. There is mild to moderate mitral annular calcification. Extension of the mitral annular calcification onto the base of the posterior mitral valve leaflet. Mild diffuse mitral valve thickening. The mitral papillary muscle appears thickened and/or calcified. Mild (1+) mitral valve insufficiency. Moderate (2+) tricuspid valve insufficiency. Trivial pulmonic valve insufficiency. Mildly dilated aortic root. Right ventricular systolic pressure estimated to be 57 mmHg. Unable to assess diastolic dysfunction. Patient other comorbid including type 2 diabetes mellitus, CKD stage III, sarcoidosis, secondary pulmonary hypertension, chronic atherosclerotic peripheral arterial disease, chronic venous stasis changes with venous ulcer status post skin graft. I have discussed my assessment with Pola BEGUM and orders have been reviewed. Clinical Impression(s) from Imaging Studies Abdomen/Pelvis CT 09/20/20 21:26 IMPRESSION: 1. No dilated loops of small bowel or bowel wall thickening. 2. Nonobstructing left nephrolithiasis. No hydronephrosis. Chest X-Ray 09/20/20 21:35 IMPRESSION: Developing right lower lobe infiltrate or atelectasis. Chest X-Ray 09/21/20 08:15 IMPRESSION: Stable right lower lobe infiltrate or atelectasis Inpatient E&M: [id number] [facility]osp L2
--- NOTE | 2020-09-21 14:08 | VDLE_ITS ---
Reason For Study: Swelling RIGHT LEFT GSV is normal. GSV is normal. CFV is compressible, spontaneous, competent CFV is compressible, spontaneous, competent, and demonstrates pulsatile venous flow. and demonstrates pulsatile venous flow. FV is compressible, spontaneous, competent FV is compressible, spontaneous, competent and demonstrates pulsatile venous flow. and demonstrates pulsatile venous flow. FV mid-distal visualized with color only. Pt FV mid-distal visualized with color only. Pt unable to tolerate compression. unable to tolerate compression. POP V is compressible, spontaneous, competent POP V is compressible, spontaneous, competent and demonstrates pulsatile venous flow. and demonstrates pulsatile venous flow. T/P Trunk is compressible. T/P Trunk is compressible. PTV is compressible. PTV is compressible. RT PerV is compressible. LT PerV is compressible. Procedure This is a venous duplex using B-mode, color flow and spectral Doppler. Exam performed portable in patient room. A preliminary report was called and/or faxed to PCU. Interpretation Summary No evidence for acute deep venous thrombosis bilateral lower extremities with patent and compressible bilateral great saphenous veins. Please see limitations on ability to interrogate bilateral femoral veins. Pulsatile venous flow noted consistent with proximal venous hypertension or obstruction. Clinical correlation would be appropriate. Ordering Physician: Pola Leung Referring Physician: Aaron Tidwell M.D. Performed By: Concepcion Reeves RVT
--- NOTE | 2020-09-21 15:45 | CHAPLAIN ---
Type of Pastoral Visit _x__ Initial Visit ___ Follow-up Visit ___ On-call Visit ___ General Patient Visit ___ Spiritual Assessment ___ Family Conference ___ Bereavement ___ Rapid Response ___ Code Blue ___ Other (describe below) Pastoral Care Referral From _x__ Patient ___ Family ___ Nurse ___ Physician ___ Head Of Strategy ___ Dialysis Rn ___ Other (describe below) Sacrament/Intervention ___ Active listening ___ Anointing ___ Christian ___ Bereavement ___ Communion ___ Amy exploration ___ ___ Life review _x__ Prayer ___ Reconciliation ___ Sacrament of Sick ___ Supportive presence ___ Wedding ___ Other (describe below) Pastoral Comments
--- NOTE | 2020-09-21 16:11 | NURSING ---
RN CM Assessment Introduced role of RN CM to patient.? Patient is alert, oriented and able?to participate in RN CM Assessment. ?Care providers, pharmacy, and demographics verified. Admit Dx: Intractable nausea/vomiting, Afib RVR Re-Admit: No Barriers/Issues: None PCP: Aaron Tidwell Specialists: Pulm- Dejan, Cardio- Alvarado, Pod- Fascione, Pain- Basali, Nephro- Gage Preferred [facility]acy: [facility] Insurance: [employer] PT Rx Benefit:?Yes ?LNOK: Geraldo Zapata LW/HPOA: None. Denies completion on this admission or offered resources. Aware can return as an outpatient to complete with social service dept should she choose at a later time. Living Arrangements:?Lives with her in a mobile home, 7 steps to enter home. ADL?s: Ambulates with a 4 point cane, independent with ADLs Transportation: Both patient and drives, patient states that she does not like to drive so her does the driving and will upon DC DME: [facility], 4ww, rollator, , Shower chair HHC: Past at [facility] SNF: None Goal: Home and does not think will have any needs. Denies any questions, issues or concerns with DC planning at this time. Aware RNCM remains available for any emerging needs that should arise. DC PLAN: Home with no anticipated needs identified at this time. ZANE Ernandez
--- NOTE | 2020-09-21 16:16 | NURSING ---
RNCM WILLIS Note: Explained and reviewed WILLIS form with patient in regards to current treatment this hospital admission. Informed outpatient billing is determined by her insurance policy and continual review is conducted to determine any changes in condition that may warrant inpatient stay. Patient states understanding and signed WILLIS form. ZANE Ernandez
[2020-09-21 17:21] LABS: Bedside Glucose 134 mg/dL (70-110)
[2020-09-21] MEDS: Pantoprazole Sodium 40 MG Tablet PO (20:35)
[2020-09-21] MEDS: Atorvastatin Calcium 40 MG Tablet PO (20:35)
[2020-09-21 22:45] LABS: Bedside Glucose 148 mg/dL (70-110)
[2020-09-22] VITALS (15 sets, daily range): BP systolic 105–118; BP diastolic 60–72; PULSE 71–113; RESP 16–18; TEMP 36.4–37.1; O2SAT 91–96
[2020-09-22 05:45] LABS: Absolute Lymphocyte Count 1.91 X10^3/uL (0.83-4.51); Absolute Neutrophil Count 8.6 X10^3/uL (2.0-7.7); Basophil# 0.04 X10^3/uL; Basophil% 0.3 % (0-1); Eosinophil# 0.08 X10^3/uL; Eosinophils% 0.7 % (0-5); Hematocrit 44.5 % (37-47); Hemoglobin 13.5 g/dL (12.0-15.0); Lymphocyte # 1.91 X10^3/ul (4.0); Lymphocyte % 16.2 % (19-41); Mean Corp Hgb Conc 30.3 g/dL (32-36); Mean Corpuscular Hgb 29.1 pg (27.0-32.0); Mean Corpuscular Volume 95.9 fL (81-99); Mean Platelet Vol. 11.4 fl (6.2-12.0); Monocyte# 1.09 X10^3/uL; Monocyte% 9.3 % (0-10); NRBC Flagged by Analyzer 0 % (0-5); Neutrophil # 8.58 X10^3/uL (2.7-7.7); Platelet Count 116 K/mm3 (150-450); RBC Distribution Width CV 15.2 % (11.6-14.6); RBC Distribution Width SD 53.6 fl (35.1-43.9); Red Blood Count 4.64 M/mm3 (4.2-5.4); White Blood Count 11.8 K/mm3 (4.4-11.0)
[2020-09-22 06:07] LABS: Anion Gap 4 (5-15); BUN 25 mg/dL (7-18); BUN/Creat Ratio 20.8 RATIO (10-20); Calcium,Total 8.6 mg/dL (8.5-10.1); Chloride 105 mmol/L (98-107); EST Glomerular Filtration Rate 47 mL/min (>60); Est Glom Filt Rate - Afr Amer 57 mL/min (>60); Estimated Creatinine Clearance 33.02 ml/min; Glucose 92 mg/dL (74-106); Sodium Level 135 mmol/L (136-145)
[2020-09-22 06:50] LABS: Bedside Glucose 100 mg/dL (70-110)
[2020-09-22] MEDS: Pantoprazole Sodium 40 MG Tablet PO (09:19)
[2020-09-22] MEDS: Metoprolol Tartrate 50 MG Tablet PO ×2 (09:20→21:47)
[2020-09-22] MEDS: Furosemide 40 MG Tablet PO (09:22)
[2020-09-22] MEDS: Spironolactone 25 MG Tablet PO (09:22)
[2020-09-22] MEDS: predniSONE 5 MG Tablet PO (09:23)
[2020-09-22] MEDS: Aspirin E.C. 81 MG Tablet PO (09:23)
[2020-09-22] MEDS: Heparin Injection (Vial) 5,000 UNIT/ML VIAL 5000 UNIT SC (09:24)
[2020-09-22 11:26] LABS: Bedside Glucose 148 mg/dL (70-110)
--- NOTE | 2020-09-22 12:51 | PCM.CONS.GEN ---
Reason for Consult Date of Consultation: 09/22/20 History of Present Illness: The patient is a 74 year old F presented to the ER due to epigastric pain which started yesterday morning and she also proceeded to have nausea and vomiting. Patient denies having previous episode of abdominal pain prior to this. Patient states that she did have a bowel movement which did improve the pain some initially was a 10/10 currently patient denies any pain without palpation. Patient states her bowel movement yesterday was maybe an orange color today it is more of the very dark brown/black per patient/nurse. Patient's fecal occult was positive. Patient's last colonoscopy was July 2018 due to bright red blood per rectum as patient was on Xarelto at that time which has been since stopped. Patient's last EGD was probably about 6 or 7 years ago.Patient is currently on Protonix IV Past Medical History Past Medical History (Chronic Problems): Chronic Problems (Last Updated 09/20/20 @ 23:[address] 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) LYN (obstructive sleep apnea) (Chronic) GERD (gastroesophageal reflux disease) (Chronic) PAOD (peripheral arterial occlusive disease) (Chronic) Depression (Chronic) Ulcer of right lower extremity with fat layer exposed (Chronic) Ulcer of left lower extremity with fat layer exposed (Chronic) Calciphylaxis (Chronic) Venous insufficiency (chronic) (peripheral) (Chronic) Sarcoidosis (Chronic) MRSA (methicillin resistant staph aureus) culture positive (Chronic) 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 Myrna Holland MD) Sick sinus syndrome (Chronic) I49.5 Status post placement of implantable loop recorder (Chronic) Z95.818 Type 2 diabetes mellitus (Chronic) E11.9 Lung nodule (Chronic) R91.1 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) M48.061, M54.16 LYN (obstructive sleep apnea) (Chronic) G47.33 GERD (gastroesophageal reflux disease) (Chronic) K21.9 PAOD (peripheral arterial occlusive disease) (Chronic) I77.9 Depression (Chronic) F32.9 Ulcer of right lower extremity with fat layer exposed (Chronic) L97.912 Ulcer of left lower extremity with fat layer exposed (Chronic) L97.922 Calciphylaxis (Chronic) E83.59 Venous insufficiency (chronic) (peripheral) (Chronic) I87.2 Sarcoidosis (Chronic) D86.9 MRSA (methicillin resistant staph aureus) culture positive (Chronic) Z22.322 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) E05.[address] elevation myocardial infarction (STEMI) (Chronic) Onset Date: 04/07/19 I25.2 Essential (primary) hypertension (Chronic) I10 Secondary pulmonary arterial hypertension (Chronic) I27.21 Atherosclerosis of coronary artery of [place] heart without angina pectoris (Chronic) I25.10 Chronic atrial fibrillation (Chronic) I48.2 Chronic kidney disease, stage 3 (Chronic) N18.3 Anemia (Chronic) D64.[address] of chest (Inactive) R93.8 GI bleeding (Inactive) K92.2 Venous stasis ulcer of left lower leg with edema of left lower leg (Inactive) I83.892, I83.028, R60.9 Venous stasis ulcer of right lower leg with edema of right lower leg (Inactive) I83.891, I83.018, R60.9 Allergies amlodipine besylate [From Norvasc] Allergy (Verified 09/20/20 18:53) Unknown ceftriaxone Allergy (Verified 09/20/20 18:53) Rash doxazosin [From Cardura] Allergy (Verified 09/20/20 18:53) Unknown doxazosin mesylate [From Cardura] Allergy (Verified 09/20/20 18:53) Other VEINS TURNED RED doxycycline Allergy (Verified 09/20/20 18:53) Unknown Pt doesn't remember enalapril maleate [From Vasotec] Allergy (Verified 09/20/20 18:53) Rash enalaprilat dihydrate [From Vasotec] Allergy (Verified 09/20/20 18:53) Rash hydroxyzine HCl [From Vistaril] Allergy (Verified 09/20/20 18:53) Rash hydroxyzine pamoate [From Vistaril] Allergy (Verified 09/20/20 18:53) Rash meperidine HCl [From Demerol] Allergy (Verified 09/20/20 18:53) Rash Sulfa (Sulfonamide Antibiotics) Allergy (Verified 09/20/20 18:53) Hives sulfamethoxazole [From Bactrim] Allergy (Verified 09/20/20 18:53) Hives trimethoprim [From Bactrim] Allergy (Verified 09/20/20 18:53) Hives losartan Adverse Reaction (Unknown, Verified 09/20/20 18:53) Unknown Home Medications: Ambulatory Orders Medication Instructions Recorded Aspirin E.C. [Ecotrin] 81 mg PO DAILY@0800 #30 tab 04/09/19 Atorvastatin Calcium [Lipitor] 40 mg PO QHS #30 tab 04/09/19 metoprolol tartrate 50 mg tablet 50 mg PO BID 12/04/19 Furosemide 40 mg PO DAILY 04/30/20 Spironolactone 25 mg PO DAILY 04/30/20 Miglitol 25 mg PO DINNER 06/24/20 Prednisone 5 mg PO DAILY 06/24/20 potassium chloride 20 mEq 20 meq PO DAILY #90 tab 08/31/20 tablet,extended release Ondansetron [Zofran Odt] 4 mg PO Q8H PRN PRN #10 tab 09/20/20 Surgical History: Surgical History (Last Updated 06/25/20 @ 08:[address] Myrna Holland MD) H/O skin graft (Inactive) Z98.890 08/01/18 @ [facility] History of cardiac radiofrequency ablation (RFA) (Inactive) Onset Date: 01/09/17 Z98.890 Convergent hybrid Lt Atrial Ablation 01/12/17 History of coronary artery stent placement (Inactive) Onset Date: 04/07/19 Z95.5 PCI-thrombectomy and BMS- Distal RCA w/ 3.0 x 16 mm Rebel Stent 04/07/19 History of hysterectomy (Inactive) Z90.710 History of loop recorder (Inactive) Onset Date: 01/09/17 Z98.890 History of patent ductus arteriosus (Inactive) Z87.74 closure S/P laparoscopic cholecystectomy (Inactive) Z90.49 Status post laparoscopic [place] fundoplication (Inactive) Z98.890 Surgical History: cataract, cholecystectomy, hysterectomy, - Psychiatric History: Depression [employer] History: No pertinent [employer] history Lives: Spouse/ Significant Other Smoking Status: Never smoker Alcohol: None Drugs: None - *Family History Maternal Family History: Family History (Last Reviewed 05/20/20 @ 10:14 by Gosia Lawson PA, PA) Mother Diabetes Brother Diabetes Myocardial infarction Cancer Son Hypertension Daughter Arthritis Diabetes Hypertension Brother Cancer History Items: No pertinent history Paternal Family History: Family History (Last Reviewed 05/20/20 @ 10:14 by Gosia BEGUM, PA) Mother Diabetes Brother Diabetes Myocardial infarction Cancer Son Hypertension Daughter Arthritis Diabetes Hypertension Brother Cancer History Items: No pertinent history Review of Systems Constitutional: Denies: Anorexia HEENT: Denies: Difficulty Swallowing Cardiovascular: Denies: Chest Pain Respiratory: Denies: Cough Gastrointestinal: Reports: Abdominal Pain, Nausea, Melena, Vomiting. Denies: Constipation, Diarrhea Genitourinary: Denies: Dysuria Neurological: Denies: Numbness Psychiatric: Denies: Depression Hematologic/ Lymphatic: Reports: Easy Bruising - Physical Exam Vitals/I&O's: Vital Signs Temp Pulse Resp BP Pulse Ox 98.7 F 111 H 18 105/69 93 09/22/20 09:29 09/22/20 09:30 09/22/20 09:29 09/22/20 09:29 09/22/20 09:29 Oxygen Delivery Method Room Air Weight: 197 lb 8.547 oz Body Mass Index (BMI) 36.1 Finger Stick Blood Glucose 124 Intake and Output for Last 24 Hours 09/20/20 09/21/20 09/22/20 23:59 23:59 23:59 Intake Total 500 / 500 1380 / 1480 865 / 865 Output Total 350 / 350 300 / 300 Balance 500 / 500 1030 / 1130 565 / 565 General: Alert, Oriented x3, Cooperative, No apparent distress HEENT: Atraumatic Lungs: Normal air movement Cardiovascular: Regular rate Abdomen: Soft, Non-Distended, Tender - Epigastric, no peritoneal signs Extremities: No clubbing, No cyanosis Neurological: Cranial nerves II-XII grossly intact Psych/Mental Status: Normal Affect Microbiology Past 72 Hours 09/22/20 10:41 Stool Stool Occult Blood (ELENITA) - Final Occult Blood Positive 09/20/20 19:37 Mucosa - Nose SARS-CoV-2 Antigen (Rapid) - Final Laboratory Results 09/21/20 17:10: POC Glucose 134 H 09/21/20 22:36: POC Glucose 148 H 09/22/20 05:32: WBC 11.8 H, RBC 4.64, Hgb 13.5, Hct 44.5, MCV 95.9, MCH 29.1, MCHC 30.3 L, RDW Std Deviation 53.6 H, RDW Coeff of Heike 15.2 H, Plt Count 116 L, MPV 11.4, Immature Gran % (Auto) 0.500, Neut % (Auto) 73.0 H, Lymph % (Auto) 16.2 L, [place] % (Auto) 9.3, Eos % (Auto) 0.7, Baso % (Auto) 0.3, Absolute Neuts (auto) 8.6 H, Absolute Lymphs (auto) 1.91, Nucleated RBC % 0 09/22/20 05:32: Sodium 135 L, Potassium 4.0, Chloride 105, Carbon Dioxide 26.0, Anion Gap 4 L, BUN 25 H, Creatinine 1.20 H, Estim Creat Clear Calc 33.02, Est GFR (MDRD) Af Amer 57 L, Est GFR (MDRD) Non-Af 47 L, BUN/Creatinine Ratio 20.8 H, Glucose 92, Calcium 8.6 09/22/20 06:29: POC Glucose 100 09/22/20 11:19: POC Glucose 148 H Current Medications Acetaminophen (Acetaminophen 325 Mg Tablet) 650 mg PO Q6H PRN PRN PRN Reason: Pain Score 1-10/Temp > 100.7 F Aspirin (Aspirin E.C. 81 Mg Tablet) 81 mg PO DAILY@0800 [facility] Last Admin: 09/22/20 09:23 Dose: 81 mg Documented by: Atorvastatin Calcium (Atorvastatin Calcium 40 Mg Tablet) 40 mg PO QHS [facility] Last Admin: 09/21/20 20:35 Dose: 40 mg Documented by: Sodium Chloride () 250 mls @ 15 mls/hr IV .[id number] PRN PRN Reason: Saline Flush Sodium Chloride () 250 mls @ 15 mls/hr IV .[id number] PRN PRN Reason: Additional IVPB Infusion Pantoprazole Sodium 40 mg/ (Sodium Chloride) 110 mls @ 330 mls/hr IV Q12 [facility] Lactated Ringer's () 1,000 mls @ 100 mls/hr IV .Q10H [facility] Stop: 09/22/20 22:09 Insulin Human Lispro (Insulin Lispro 100 Unit/Ml Insuln.Pen) 0 unit SC ACHS [facility]; Protocol Last Admin: 09/22/20 11:25 Dose: Not Given Documented by: Metoprolol Tartrate (Metoprolol Tartrate 50 Mg Tablet) 50 mg PO BID [facility] Last Admin: 09/22/20 09:20 Dose: 50 mg Documented by: Morphine Sulfate (Morphine 2 Mg/Ml Syringe) 2 mg IV Q4H PRN PRN PRN Reason: Pain Score 6-10 Ondansetron HCl (Ondansetron 4 Mg/2 Ml Vial) 4 mg IV Q8H PRN PRN PRN Reason: NAUSEA/VOMITING Prednisone (Prednisone 5 Mg Tablet) 5 mg PO DAILYCM [facility] Last Admin: 09/22/20 09:23 Dose: 5 mg Documented by: Promethazine HCl (Promethazine 25 Mg/Ml Syringe) 6.25 mg IV Q6H PRN PRN PRN Reason: NAUSEA/VOMITING Last Admin: 09/20/20 23:55 Dose: 6.25 mg Documented by: Sodium Chloride (0.9% Saline Lock 10 Ml Syringe) 10 - 40 ml IV UD PRN PRN Reason: SALINE FLUSH Last Admin: 09/21/20 06:36 Dose: 10 ml Documented by: Assessment/Plan 74-year-old female with melena, positive fecal occult blood, Nausea and vomiting, epigastric pain I have discussed the above with the patient. I have offered the patient EGD for evaluation.Scheduled for 8 AM , Continue Protonix IV patient will likely also be DC'd home with Protonix p.o. I have explained the risks/benefits of the procedure and described the procedure. I have discussed the risks with the patient, including but not limited to: infection, bleeding, perforation of the GI tract requiring emergency surgery, inability to complete the procedure, injury to any internal organs, complications of anesthesia, etc. - the patient understands and agrees to proceed. I have answered all the patient's questions to the patient's satisfaction and the patient has no further questions. Rubi Valles M.D. Pager: [phone] [facility] [address] [place] [address] [address] [place] [address] Office: [phone] Procedure Criteria Procedure Type: Elective COVID Risk Discussion: The surgeon/proceduralist and patient have discussed in detail the risk of exposure to and/or potential harm posed by the COVID-19 virus with having a surgery/procedure at this time versus the risk of delaying the surgery/procedure. It is not possible to know either the risk of delaying the surgery or procedure or chance of getting an infection with perfect accuracy, but a joint decision was made between the patient and the surgeon/proceduralist to proceed at this time with the scheduled surgery/procedure as indicated on the consent form. Inpatient E&M: 90161 Init Hosp L2
--- NOTE | 2020-09-22 13:05 | PN_ITS ---
Vitals/I&O's: Vital Signs Temp Pulse Resp BP Pulse Ox 98.7 F 111 H 18 105/69 93 09/22/20 09:29 09/22/20 09:30 09/22/20 09:29 09/22/20 09:29 09/22/20 09:29 Oxygen Delivery Method Room Air Weight: 197 lb 8.547 oz Body Mass Index (BMI) 36.1 Finger Stick Blood Glucose 124 Intake and Output for Last 24 Hours 09/20/20 09/21/20 09/22/20 23:59 23:59 23:59 Intake Total 500 / 500 1380 / 1480 865 / 865 Output Total 350 / 350 300 / 300 Balance 500 / 500 1030 / 1130 565 / 565 Microbiology Past 72 Hours 09/22/20 10:41 Stool Stool Occult Blood (ELENITA) - Final Occult Blood Positive 09/20/20 19:37 Mucosa - Nose SARS-CoV-2 Antigen (Rapid) - Final Laboratory Results 09/21/20 17:10: POC Glucose 134 H 09/21/20 22:36: POC Glucose 148 H 09/22/20 05:32: WBC 11.8 H, RBC 4.64, Hgb 13.5, Hct 44.5, MCV 95.9, MCH 29.1, MCHC 30.3 L, RDW Std Deviation 53.6 H, RDW Coeff of [place]ike 15.2 H, Plt Count 116 L, MPV 11.4, Immature Gran % (Auto) 0.500, Neut % (Auto) 73.0 H, Lymph % (Auto) 16.2 L, [place] % (Auto) 9.3, Eos % (Auto) 0.7, Baso % (Auto) 0.3, Absolute Neuts (auto) 8.6 H, Absolute Lymphs (auto) 1.91, Nucleated RBC % 0 09/22/20 05:32: Sodium 135 L, Potassium 4.0, Chloride 105, Carbon Dioxide 26.0, Anion Gap 4 L, BUN 25 H, Creatinine 1.20 H, Estim Creat Clear Calc 33.02, Est GFR (MDRD) Af Amer 57 L, Est GFR (MDRD) Non-Af 47 L, BUN/Creatinine Ratio 20.8 H , Glucose 92, Calcium 8.6 09/22/20 06:29: POC Glucose 100 09/22/20 11:19: POC Glucose 148 H Current Medications Acetaminophen (Acetaminophen 325 Mg Tablet) 650 mg PO Q6H PRN PRN PRN Reason: Pain Score 1-10/Temp > 100.7 F Aspirin (Aspirin E.C. 81 Mg Tablet) 81 mg PO DAILY@0800 [facility] Last Admin: 09/22/20 09:23 Dose: 81 mg Documented by: Atorvastatin Calcium (Atorvastatin Calcium 40 Mg Tablet) 40 mg PO QHS [facility] Last Admin: 09/21/20 20:35 Dose: 40 mg Documented by: Sodium Chloride () 250 mls @ 15 mls/hr IV .[id number] PRN PRN Reason: Saline Flush Sodium Chloride () 250 mls @ 15 mls/hr IV .[id number] PRN PRN Reason: Additional IVPB Infusion Pantoprazole Sodium 40 mg/ (Sodium Chloride) 110 mls @ 330 mls/hr IV Q12 [facility] Lactated Ringer's () 1,000 mls @ 100 mls/hr IV .Q10H [facility] Stop: 09/22/20 22:09 Insulin Human Lispro (Insulin Lispro 100 Unit/Ml Insuln.Pen) 0 unit SC [facility]; Protocol Last Admin: 09/22/20 11:25 Dose: Not Given Documented by: Metoprolol Tartrate (Metoprolol Tartrate 50 Mg Tablet) 50 mg PO BID [facility] Last Admin: 09/22/20 09:20 Dose: 50 mg Documented by: Morphine Sulfate (Morphine 2 Mg/Ml Syringe) 2 mg IV Q4H PRN PRN PRN Reason: Pain Score 6-10 Ondansetron HCl (Ondansetron 4 Mg/2 Ml Vial) 4 mg IV Q8H PRN PRN PRN Reason: NAUSEA/VOMITING Prednisone (Pred[facility] 5 Mg Tablet) [facility] Admin: 09/22/20 09:23 Dose: 5 mg Documented by: Promethazine HCl (Promethazine 25 Mg/Ml Syringe) 6.25 mg IV Q6H PRN PRN PRN Reason: NAUSEA/VOMITING Last Admin: 09/20/20 23:55 Dose: 6.25 mg Documented by: Sodium Chloride (0.9% Saline Lock 10 Ml Syringe) 10 - 40 ml IV UD PRN PRN Reason: SALINE FLUSH Last Admin: 09/21/20 06:36 Dose: 10 ml Documented by: STROKE Vital Signs/Narrative: Vital Signs Temp Pulse Resp BP Pulse Ox 09/22/20 09:30 111 H 09/22/20 09:29 98.7 F 111 H 18 105/69 93 09/22/20 09:20 111 H 105/69 Medical Necessity - Tobacco Use Smoking Status: Never smoker
[2020-09-22 13:16] LABS: Hemoglobin 14.6 g/dL (12.0-15.0)
[2020-09-22] MEDS: Lactated Ringers 500 ML 999 ML IV (13:34)
[2020-09-22] MEDS: 0.9% Saline Lock 10 ML Syringe IV ×2 (13:48→21:48)
--- NOTE | 2020-09-22 15:31 | PCM.PN.HOSP ---
<Pola Leung - Last Filed: 09/22/20 15:31> Reason for Visit: n/v/d and abdominal pain Subjective: had some ongoing midepigastric pain this AM, at the time of my exam this had resolved. No further diarrhea or emesis. The patient had a black stool which was positive for blood. Given her hx of ulcers and GI bleed general surgery was consulted. Vitals/I&O's: Vital Signs Temp Pulse Resp BP Pulse Ox 98.1 F 113 H 16 110/60 93 09/22/20 13:08 09/22/20 14:01 09/22/20 13:08 09/22/20 13:08 09/22/20 13:08 Oxygen Delivery Method Room Air Weight: 197 lb 8.547 oz Body Mass Index (BMI) 36.1 Finger Stick Blood Glucose 124 Intake and Output for Last 24 Hours 09/20/20 09/21/20 09/22/20 23:59 23:59 23:59 Intake Total 500 / 500 1380 / 1480 1365 / 1365 Output Total 350 / 350 600 / 600 Balance 500 / 500 1030 / 1130 765 / 765 General: Alert, Oriented x3, Cooperative HEENT: Atraumatic, PERRLA, EOMI, Normocephalic Neck: Supple, No JVD, Negative Carotid Bruits Lungs: Clear to auscultation, Normal air movement Cardiovascular: Regular rate, No murmurs Abdomen: Bowel Sounds Present, Soft, Non Tender Extremities: No edema, Capillary Refill Less than 3 Seconds Skin: No rashes, No breakdown Musculoskeletal: No Tenderness to Palpation of Joints or Extremities Neurological: Cranial nerves II-XII grossly intact Psych/Mental Status: Normal Affect, Appropriate, Alert and oriented to time, place, person, mood and affect Microbiology Past 72 Hours 09/22/20 10:41 Stool Stool Occult Blood (ELENITA) - Final Occult Blood Positive 09/20/20 19:37 Mucosa - Nose SARS-CoV-2 Antigen (Rapid) - Final Laboratory Results 09/21/20 17:10: POC Glucose 134 H 09/21/20 22:36: POC Glucose 148 H 09/22/20 05:32: WBC 11.8 H, RBC 4.64, Hgb 13.5, Hct 44.5, MCV 95.9, MCH 29.1, MCHC 30.3 L, RDW Std Deviation 53.6 H, RDW Coeff of Heike 15.2 H, Plt Count 116 L, MPV 11.4, Immature Gran % (Auto) 0.500, Neut % (Auto) 73.0 H, Lymph % (Auto) 16.2 L, Ceiba % (Auto) 9.3, Eos % (Auto) 0.7, Baso % (Auto) 0.3, Absolute Neuts (auto) 8.6 H, Absolute Lymphs (auto) 1.91, Nucleated RBC % 0 09/22/20 05:32: Sodium 135 L, Potassium 4.0, Chloride 105, Carbon Dioxide 26.0, Anion Gap 4 L, BUN 25 H, Creatinine 1.20 H, Estim Creat Clear Calc 33.02, Est GFR (MDRD) Af Amer 57 L, Est GFR (MDRD) Non-Af 47 L, BUN/Creatinine Ratio 20.8 H, Glucose 92, Calcium 8.6 09/22/20 06:29: POC Glucose 100 09/22/20 11:19: POC Glucose 148 H 09/22/20 13:00: Hgb 14.6, Hct 46.0 Current Medications Acetaminophen (Acetaminophen 325 Mg Tablet) 650 mg PO Q6H PRN PRN PRN Reason: Pain Score 1-10/Temp > 100.7 F Aspirin (Aspirin E.C. 81 Mg Tablet) 81 mg PO DAILY@0800 [facility] Last Admin: 09/22/20 09:23 Dose: 81 mg Documented by: Atorvastatin Calcium (Atorvastatin Calcium 40 Mg Tablet) 40 mg PO QHS [facility] Last Admin: 09/21/20 20:35 Dose: 40 mg Documented by: Sodium Chloride () 250 mls @ 15 mls/hr IV .[id number] PRN PRN Reason: Saline Flush Sodium Chloride () 250 mls @ 15 mls/hr IV .[id number] PRN PRN Reason: Additional IVPB Infusion Pantoprazole Sodium 40 mg/ (Sodium Chloride) 110 mls @ 330 mls/hr IV Q12 [facility] Lactated Ringer's () 1,000 mls @ 100 mls/hr IV .Q10H [facility] Stop: 09/22/20 22:09 Insulin Human Lispro (Insulin Lispro 100 Unit/Ml Insuln.Pen) 0 unit SC [facility]; Protocol Last Admin: 09/22/20 11:25 Dose: Not Given Documented by: Metoprolol Tartrate (Metoprolol Tartrate 50 Mg Tablet) 50 mg PO BID [facility] Last Admin: 09/22/20 09:20 Dose: 50 mg Documented by: Morphine Sulfate (Morphine 2 Mg/Ml Syringe) 2 mg IV Q4H PRN PRN PRN Reason: Pain Score 6-10 Ondansetron HCl (Ondansetron 4 Mg/2 Ml Vial) 4 mg IV Q8H PRN PRN PRN Reason: NAUSEA/VOMITING Promethazine HCl (Promethazine 25 Mg/Ml Syringe) 6.25 mg IV Q6H PRN PRN PRN Reason: NAUSEA/VOMITING Last Admin: 09/20/20 23:55 Dose: 6.25 mg Documented by: Sodium Chloride (0.9% Saline Lock 10 Ml Syringe) 10 - 40 ml IV UD PRN PRN Reason: SALINE FLUSH Last Admin: 09/22/20 13:48 Dose: 10 ml Documented by: STROKE Vital Signs/Narrative: Vital Signs Temp Pulse Resp BP Pulse Ox 09/22/20 14:01 113 H 09/22/20 13:08 98.1 F 99 16 110/60 93 Medical Necessity - Tobacco Use Smoking Status: Never smoker Assessment/Plan 1. Intractable nausea/vomiting/diarrhea - improved. Suspect acute viral gastroenteritis. C diff pending. Advance diet with caution. Lipase neg. CT abdomen negative. Pt s/p cholecystectomy. 2. Afib RVR - 2/2 above and associated dehydration - rate improved. mildly tachy at this point. continue home meds. Pt no on anticoagulation 2/2 hx GI bleeding. Continue metoprolol. 3. Midepigastric pain - hx peptic ulcers, hiatal hernia, GERD - continue PPI. Had black stool + hemoccult today - general surgery consulted. Hgb stable. EGD in the AM tomorrow. 4. CKDIII - improved overnight with IVF- repeat AM BMP 5. T2DM - miglitol held for #1. Continue SSI. 6. Sarcoidosis - continue po prednisone 7. LYN - bipap qhs 8. Mild thrombocytopenia - trend given heparin use. 9. RLE swelling - venous duplex negative 10. Chronic venous stasis wounds - s/p multiple grafts. appear to be well healed at this time DVT ppx: SCDs DC planning: EGD in AM This patient was seem by Pola Leung PA-C under the supervision of Dr. Lopez. <Frederic Lopez - Last Filed: 09/22/20 15:50> Subjective: Patient had black tarry stool in the morning consistent with melena. She also complained of mild epigastric discomfort/pain but is better. Patient has history of hiatus hernia and possible ulcer surgery in remote past. She also had colonoscopy in 2018 for GI bleed by Dr. Alvarado. She has multiple cardiovascular disease including coronary artery disease, peripheral arterial disease, sick sinus syndrome, paroxysmal A. fib status post loop recorder. Physical exam General: Alert, Oriented x3, Cooperative HEENT: Atraumatic, PERRLA, EOMI, Normocephalic Oral: No Gingival or Mucosal Lesions/ Ulcerations Neck: Supple, No JVD, Negative Carotid Bruits Lungs: Air entry diminished in bilateral lung bases. No crepitation/rhonchi Cardiovascular: Regular rate, Regular Rhythm, Normal S1, Normal S2, No murmurs. Has loop recorder. Abdomen: Mild deep epigastric tenderness. Bowel Sounds Present, Soft, Non-Distended : No renal angle tenderness. No suprapubic tenderness. Extremities: No edema, Capillary Refill Less than 3 Seconds Skin: No rashes, No breakdown Musculoskeletal: No Tenderness to Palpation of Joints or Extremities Neurological: Cranial nerves II-XII grossly intact, Deep Tendon Reflexes 2+/4 and Symmetrical, Neuro grossly intact Psych/Mental Status: Normal Affect, Appropriate. Vitals/I&O's: Vital Signs Temp Pulse Resp BP Pulse Ox 98.1 F 113 H 16 110/60 93 09/22/20 13:08 09/22/20 14:01 09/22/20 13:08 09/22/20 13:08 09/22/20 13:08 Oxygen Delivery Method Room Air Weight: 197 lb 8.547 oz Body Mass Index (BMI) 36.1 Finger Stick Blood Glucose 124 Intake and Output for Last 24 Hours 09/20/20 09/21/20 09/22/20 23:59 23:59 23:59 Intake Total 500 / 500 1380 / 1480 1365 / 1365 Output Total 350 / 350 600 / 600 Balance 500 / 500 1030 / 1130 765 / 765 Microbiology Past 72 Hours 09/22/20 10:41 Stool Stool Occult Blood (ELENITA) - Final Occult Blood Positive 09/20/20 19:37 Mucosa - Nose SARS-CoV-2 Antigen (Rapid) - Final Laboratory Results 09/21/20 17:10: POC Glucose 134 H 09/21/20 22:36: POC Glucose 148 H 09/22/20 05:32: WBC 11.8 H, RBC 4.64, Hgb 13.5, Hct 44.5, MCV 95.9, MCH 29.1, MCHC 30.3 L, RDW Std Deviation 53.6 H, RDW Coeff of Heike 15.2 H, Plt Count 116 L, MPV 11.4, Immature Gran % (Auto) 0.500, Neut % (Auto) 73.0 H, Lymph % (Auto) 16.2 L, Ceiba % (Auto) 9.3, Eos % (Auto) 0.7, Baso % (Auto) 0.3, Absolute Neuts (auto) 8.6 H, Absolute Lymphs (auto) 1.91, Nucleated RBC % 0 09/22/20 05:32: Sodium 135 L, Potassium 4.0, Chloride 105, Carbon Dioxide 26.0, Anion Gap 4 L, BUN 25 H, Creatinine 1.20 H, Estim Creat Clear Calc 33.02, Est GFR (MDRD) Af Amer 57 L, Est GFR (MDRD) Non-Af 47 L, BUN/Creatinine Ratio 20.8 H, Glucose 92, Calcium 8.6 09/22/20 06:29: POC Glucose 100 09/22/20 11:19: POC Glucose 148 H 09/22/20 13:00: Hgb 14.6, Hct 46.0 Current Medications Acetaminophen (Acetaminophen 325 Mg Tablet) 650 mg PO Q6H PRN PRN PRN Reason: Pain Score 1-10/Temp > 100.7 F Aspirin (Aspirin E.C. 81 Mg Tablet) 81 mg PO DAILY@0800 [facility] Last Admin: 09/22/20 09:23 Dose: 81 mg Documented by: Atorvastatin Calcium (Atorvastatin Calcium 40 Mg Tablet) 40 mg PO QHS [facility] Last Admin: 09/21/20 20:35 Dose: 40 mg Documented by: Sodium Chloride () 250 mls @ 15 mls/hr IV .[id number] PRN PRN Reason: Saline Flush Sodium Chloride () 250 mls @ 15 mls/hr IV .[id number] PRN PRN Reason: Additional IVPB Infusion Pantoprazole Sodium 40 mg/ (Sodium Chloride) 110 mls @ 330 mls/hr IV Q12 [facility] Lactated Ringer's () 1,000 mls @ 100 mls/hr IV .Q10H [facility] Stop: 09/22/20 22:09 Insulin Human Lispro (Insulin Lispro 100 Unit/Ml Insuln.Pen) 0 unit SC ACHS [facility]; Protocol Last Admin: 09/22/20 11:25 Dose: Not Given Documented by: Metoprolol Tartrate (Metoprolol Tartrate 50 Mg Tablet) 50 mg PO BID [facility] Last Admin: 09/22/20 09:20 Dose: 50 mg Documented by: Morphine Sulfate (Morphine 2 Mg/Ml Syringe) 2 mg IV Q4H PRN PRN PRN Reason: Pain Score 6-10 Ondansetron HCl (Ondansetron 4 Mg/2 Ml Vial) 4 mg IV Q8H PRN PRN PRN Reason: NAUSEA/VOMITING Promethazine HCl (Promethazine 25 Mg/Ml Syringe) 6.25 mg IV Q6H PRN PRN PRN Reason: NAUSEA/VOMITING Last Admin: 09/20/20 23:55 Dose: 6.25 mg Documented by: Sodium Chloride (0.9% Saline Lock 10 Ml Syringe) 10 - 40 ml IV UD PRN PRN Reason: SALINE FLUSH Last Admin: 09/22/20 13:48 Dose: 10 ml Documented by: STROKE Vital Signs/Narrative: Vital Signs Temp Pulse Resp BP Pulse Ox 09/22/20 14:01 113 H 09/22/20 13:08 98.1 F 99 16 110/60 93 Assessment/Plan This patient was seen in conjunction with Pola BEGUM. I have independently interviewed and examined the patient and reviewed pertinent history, examination findings, laboratory and plan of management. I have reviewed the note and agree with the documented findings with the few additional points. In brief, patient is 73 female admitted with interval nausea, vomiting and diarrhea and epigastric pain. SARS-CoV-2 is negative. Patient had 1 black tarry stool, melena after admission. Since she did not had any bowel movement for 24 hours after admission, stool for C. difficile and enteric bacteriology panel was canceled as per protocol. Lipase negative. CT abdomen negative for acute intra-abdominal abnormality. Chest x-ray shows developing right lower lobe infiltrate or atelectasis but CT abdomen lower cuts negative for any consolidation. Stool for occult blood positive. Surgeon was consulted and agreed for EGD for tomorrow a.m. Patient on oral Protonix 40 twice daily changed to IV twice daily. No significant drop in H&H from 14.9/48-13.5/44.5. Mild sinus tachycardia on monitor, heart rate 111 and blood pressure 105/69. 500 normal saline Ringer lactate was given in view of multiple cardiovascular comorbidities. Lasix is on hold. Prednisone and spironolactone discontinued. Patient also has A. fib with RVR, sick sinus syndrome status post loop recorder. Patient had 2D echo in June 2019 as reported below. Interpretation Summary Segmental dysfunction with 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 (see wall motion). The estimated ejection fraction is 55 %. The left atrium is moderately enlarged. The right atrium is moderately enlarged. There is mild to moderate mitral annular calcification. Extension of the mitral annular calcification onto the base of the posterior mitral valve leaflet. Mild diffuse mitral valve thickening. The mitral papillary muscle appears thickened and/or calcified. Mild (1+) mitral valve insufficiency. Moderate (2+) tricuspid valve insufficiency. Trivial pulmonic valve insufficiency. Mildly dilated aortic root. Right ventricular systolic pressure estimated to be 57 mmHg. Unable to assess diastolic dysfunction. Patient other comorbid including type 2 diabetes mellitus, CKD stage III, sarcoidosis, secondary pulmonary hypertension, chronic atherosclerotic peripheral arterial disease, chronic venous stasis changes with venous ulcer status post skin graft. Patient on prednisone for sarcoidosis. Venous duplex was negative for DVT I have discussed my assessment with Pola BEGUM and orders have been reviewed. Total time of the visit including total time spent in counseling or coordination of care, (more than 50% of the total time, spent in obtaining medical information from nurses and other ancillary care providers,explaining to the patient about labs, imaging, diagnosis and management), surgeon, Dr. Valles, review of labs and imaging is 30 minutes. Clinical Impression(s) from Imaging Studies Abdomen/Pelvis CT 09/20/20 21:26 IMPRESSION: 1. No dilated loops of small bowel or bowel wall thickening. 2. Nonobstructing left nephrolithiasis. No hydronephrosis. Chest X-Ray 09/20/20 21:35 IMPRESSION: Developing right lower lobe infiltrate or atelectasis. Chest X-Ray 09/21/20 08:15 IMPRESSION: Stable right lower lobe infiltrate or atelectasis Microbiology Past 72 Hours 09/22/20 10:41 Stool Stool Occult Blood (ELENITA) - Final Occult Blood Positive 09/20/20 19:37 Mucosa - Nose SARS-CoV-2 Antigen (Rapid) - Final Laboratory Results 09/21/20 17:10: POC Glucose 134 H 09/21/20 22:36: POC Glucose 148 H 09/22/20 05:32: WBC 11.8 H, RBC 4.64, Hgb 13.5, Hct 44.5, MCV 95.9, MCH 29.1, MCHC 30.3 L, RDW Std Deviation 53.6 H, RDW Coeff of Heike 15.2 H, Plt Count 116 L, MPV 11.4, Immature Gran % (Auto) 0.500, Neut % (Auto) 73.0 H, Lymph % (Auto) 16.2 L, Ceiba % (Auto) 9.3, Eos % (Auto) 0.7, Baso % (Auto) 0.3, Absolute Neuts (auto) 8.6 H, Absolute Lymphs (auto) 1.91, Nucleated RBC % 0 09/22/20 05:32: Sodium 135 L, Potassium 4.0, Chloride 105, Carbon Dioxide 26.0, Anion Gap 4 L, BUN 25 H, Creatinine 1.20 H, Estim Creat Clear Calc 33.02, Est GFR (MDRD) Af Amer 57 L, Est GFR (MDRD) Non-Af 47 L, BUN/Creatinine Ratio 20.8 H, Glucose 92, Calcium 8.6 09/22/20 06:29: POC Glucose 100 09/22/20 11:19: POC Glucose 148 H 09/22/20 13:00: Hgb 14.6, Hct 46.0 Inpatient E&M: 22488 Subs Hosp L3
[2020-09-22 16:50] LABS: Bedside Glucose 171 mg/dL (70-110)
[2020-09-22] MEDS: Insulin Lispro 100 UNIT/ML INSULN.PEN SC (16:53)
[2020-09-22] MEDS: Atorvastatin Calcium 40 MG Tablet PO (21:47)
[2020-09-22 22:25] LABS: Bedside Glucose 133 mg/dL (70-110)
[2020-09-23] VITALS (12 sets, daily range): BP systolic 80–130; BP diastolic 49–84; PULSE 70–89; RESP 18–20; TEMP 35.8–36.4; O2SAT 90–99; BMI 36.1
[2020-09-23 06:35] LABS: Bedside Glucose 100 mg/dL (70-110)
--- NOTE | 2020-09-23 08:00 | IMM_PTH ---
PATIENT: JACQUES CARTER LOC: [facility] U#:[id number] AGE/SX: 74/F ROOM: [facility] RE09/20/[address]: Dr. Frederic Lopez MD : 1945 BED: 1 DIS: 09/23/2020 SPEC #: [id number] RECD: 09/23/20 11:54 STATUS: SOUT REQ #: [id number] LACI: 09/23/20 08:[address]: Rubi Valles DEPT: IMMUNOHISTOCHEMISTRY RECD BY: Myriam Moore ENTERED: 09/23/20 11:57 SP TYPE: IMMUNO OTHR DR: MD Dr. Frederic Siu MD Dr. Victor Velasquez, MD Tissues: A - Pyloric portion of stomach Procedures: H Pylori (initial) PHYSICIAN & INSTITUTION [place] [address] SPECIMEN INFORMATION: Tissue Source: A - Prepyloric ulcer biopsy Clinical Info: Melena, positive fecal occult blood, nausea, vomiting, epigastric pain Specimen Number: [id number] CPT code: 05182 METHODOLOGY: Deparaffinized sections of prefer/formalin-fixed tissue or PAP/DQ stained slides are incubated with monoclonal/polyclonal antibodies/oligonucleotide probes. Localization is made via biotin free immunoperoxidase method. Appropriate controls are performed and reacted as expected. Results on target cell population are indicated in the following table: RESULTS: ANTIBODY / CLONE RESULT Block A H Pylori (polyclonal) negative These tests were developed and their performance characteristics determined by [facility]. They may not have been cleared or approved by the U.S. Food and Drug Administration. The FDA has determined that such clearance or approval is not necessary. INTERPRETATION: A. Prepyloric ulcer, biopsy: Negative for Helicobacter pylori organisms. AM:susana 09/24/20
--- NOTE | 2020-09-23 08:00 | EGD_PTH ---
PATIENT: JACQUES CARTER LOC: [facility] U#:[id number] AGE/SX: 74/F ROOM: [facility] RE09/20/[address]: Dr. Frederic Lopez MD : 1945 BED: 1 DIS: 09/23/2020 SPEC #: [id number] RECD: 09/23/20 08:31 STATUS: RONNY REJusta #: [id number] LACI: 09/23/20 08:[address]: Rubi Valles DEPT: SURGICAL PATHOLOGY RECD BY: Sakina Lizama ENTERED: 09/23/20 10:22 SP TYPE: EGD BIOPSY OTHR DR: MD Dr. Frederic Siu MD Dr. Victor Velasquez, MD Tissues: A - Gastric mucous membrane B - Gastric mucous membrane Procedures: Special Stain Group II Surgery Specimen Level IV Alcian Blue/PAS (control) HEADER OPERATION: EGD ([facility]) PRE-OP DIAGNOSIS: Melena, positive fecal occult blood, nausea, vomiting, epigastric pain TISSUE SUBMITTED: A - Prepyloric ulcer biopsy for histo and H. pylori, B - GE junction biopsy MICROSCOPIC DIAGNOSIS A. Prepyloric ulcer, biopsy: Strips of benign superficial gastric mucosa. See comment. B. Gastroesophageal junction, biopsy: Mild chronic inflammation. No evidence of goblet cell metaplasia. See comment. AM:susana 09/24/20 COMMENT A. The results of immunohistochemistry for Helicobacter pylori will be reported separately ([id number]). B. Alcian blue/PAS stain with matched control supports the above diagnosis. MICROSCOPIC DESCRIPTION Slides are reviewed. GROSS DESCRIPTION A - Received in fixative is one container labeled with the patient's name and designated prepyloric ulcer biopsy. The specimen consists of two irregular fragments of light rodriguez soft tissue that in aggregate measure 0.5 x 0.3 x 0.1 cm. The specimen is totally submitted in one cassette. B - Received in fixative is one container labeled with the patient's name and designated GE junction. The specimen consists of two irregular fragments of light rodriguez soft tissue that in aggregate measure 0.5 x 0.5 x 0.1 cm. The specimen is totally submitted in one cassette. / AM:susana 09/23/20 TC:3 CPT: 16851 x2, 70942
[2020-09-23 08:02] LABS: Hemoglobin A1c 8.2 % (3.8-5.6)
--- NOTE | 2020-09-23 08:30 | OP.EGD_ITS ---
Patient Name: Di Zapata Procedure Date: 09/23/2020 7:37 AM Date of : 1945 Age: 74 Procedure: Upper GI endoscopy Indications: Epigastric abdominal pain, Melena, Nausea with vomiting Providers: Rubi Valles MD Medicines: Monitored Anesthesia Care Patient Profile: This is a 74 year old female. Complications: No immediate complications. Procedure: Pre-Anesthesia Assessment: - Prior to the procedure, a History and Physical was performed, and patient medications and allergies were reviewed. The patient's tolerance of previous anesthesia was also reviewed. The risks and benefits of the procedure and the sedation options and risks were discussed with the patient. All questions were answered, and informed consent was obtained. Prior Anticoagulants: The patient has taken aspirin, last dose was 1 day prior to procedure. ASA Grade Assessment: Per anesthesia. After reviewing the risks and benefits, the patient was deemed in satisfactory condition to undergo the procedure. After obtaining informed consent, the endoscope was passed under direct vision. Throughout the procedure, the patient's blood pressure, pulse, and oxygen saturations were monitored continuously. The Endoscope was introduced through the mouth, and advanced to the second part of duodenum. The upper GI endoscopy was accomplished without difficulty. The patient tolerated the procedure well. Scope In: 8:09:03 AM Scope Out: 8:16:38 AM Total Procedure Duration Time 0 hours 7 minutes 35 seconds Findings: The Z-line was variable and was found 33 cm from the incisors. Biopsies were taken with a cold forceps for histology. A small hiatal hernia was present. One non-bleeding cratered gastric ulcer was found in the prepyloric region of the stomach. The lesion was 4 mm in largest dimension. Biopsies were taken with a cold forceps for histology. Biopsies were taken with a cold forceps for Helicobacter pylori cultures. Mild inflammation characterized by erythema was found in the gastric body. Patchy moderately erythematous mucosa minimal [Stigmata of bleeding] was found in the duodenal bulb and in the first portion of the duodenum. The exam of the duodenum was otherwise normal. Impression: - Z-line variable, 33 cm from the incisors. Biopsied. - Small hiatal hernia. - Non-bleeding gastric ulcer. Biopsied. - Gastritis. - Erythematous duodenopathy. Recommendation: - Await pathology results. - Return patient to [facility] for possible discharge same day. - Resume regular diet. - Use Protonix (pantoprazole) 40 mg PO BID for 2 months, then 40 mg PO daily indefinitely. - Use sucralfate tablets 1 gram PO QID for 1 month. - Continue present medications. Procedure Code(s): --- Professional --- 07777, Esophagogastroduodenoscopy, flexible, transoral; with biopsy, single or multiple Diagnosis Code(s): --- Professional --- K22.8, Other specified diseases of esophagus K44.9, Diaphragmatic hernia without obstruction or gangrene K25.9, Gastric ulcer, unspecified as acute or chronic, without hemorrhage or perforation K29.70, Gastritis, unspecified, without bleeding K31.89, Other diseases of stomach and duodenum R10.13, Epigastric pain K92.1, Melena (includes Hematochezia) R11.2, Nausea with vomiting, unspecified CPT copyright 2017 [employer]. All rights reserved. The codes documented in this report are preliminary and upon teaching young review may be revised to meet current compliance requirements. MD Rubi Hines MD 09/23/2020 8:29:56 AM This report has been signed electronically. Number of Addenda: 0 Note Initiated On: 09/23/2020 7:37 AM
--- NOTE | 2020-09-23 08:30 | OP.CCLET_ITS ---
09/23/2020 Aaron Tidwell [address] [place] [address] Re : Upper GI endoscopy procedure for Di Zapata Dear Dr. Tidwell This procedure was performed on Wednesday, September 23, 2020. My impressions and recommendations are as follows: Impressions : - Z-line variable, 33 cm from the incisors. Biopsied. - Small hiatal hernia. - Non-bleeding gastric ulcer. Biopsied. - Gastritis. - Erythematous duodenopathy. Recommendations : - Await pathology results. - Return patient to [facility] for possible discharge same day. - Resume regular diet. - Use Protonix (pantoprazole) 40 mg PO BID for 2 months, then 40 mg PO daily indefinitely. - Use sucralfate tablets 1 gram PO QID for 1 month. - Continue present medications. My findings are described in the full procedure note, which is enclosed. If I can be of further assistance, please feel free to contact me at Doctor phone number(s): , Work: . Sincerely, MD Rubi Hines MD 09/23/2020 8:29:56 AM This report has been signed electronically.
[2020-09-23] MEDS: Aspirin E.C. 81 MG Tablet PO (09:04)
[2020-09-23] MEDS: Metoprolol Tartrate 50 MG Tablet PO (09:04)
[2020-09-23 10:31] LABS: Anion Gap 5 (5-15); BUN 23 mg/dL (7-18); BUN/Creat Ratio 16.4 RATIO (10-20); Calcium,Total 8.7 mg/dL (8.5-10.1); Chloride 107 mmol/L (98-107); EST Glomerular Filtration Rate 39 mL/min (>60); Est Glom Filt Rate - Afr Amer 47 mL/min (>60); Estimated Creatinine Clearance 28.31 ml/min; Glucose 93 mg/dL (74-106); Magnesium 1.6 mg/dL (1.6-2.6); Potassium 3.4 mmol/L (3.5-5.1); Sodium Level 137 mmol/L (136-145)
[2020-09-23 10:57] LABS: Absolute Lymphocyte Count 1.96 X10^3/uL (0.83-4.51); Absolute Neutrophil Count 7.2 X10^3/uL (2.0-7.7); Basophil# 0.05 X10^3/uL; Basophil% 0.5 % (0-1); Eosinophil# 0.12 X10^3/uL; Eosinophils% 1.2 % (0-5); Hematocrit 47.5 % (37-47); Hemoglobin 14.7 g/dL (12.0-15.0); Lymphocyte # 1.96 X10^3/ul (4.0); Lymphocyte % 19.1 % (19-41); Mean Corp Hgb Conc 30.9 g/dL (32-36); Mean Corpuscular Hgb 29.5 pg (27.0-32.0); Mean Corpuscular Volume 95.2 fL (81-99); Mean Platelet Vol. 11.6 fl (6.2-12.0); Monocyte# 0.89 X10^3/uL; Monocyte% 8.7 % (0-10); NRBC Flagged by Analyzer 0 % (0-5); Neutrophil # 7.17 X10^3/uL (2.7-7.7); Neutrophil % 69.9 % (47-70); Platelet Count 113 K/mm3 (150-450); RBC Distribution Width CV 15.1 % (11.6-14.6); RBC Distribution Width SD 53.1 fl (35.1-43.9); Red Blood Count 4.99 M/mm3 (4.2-5.4); White Blood Count 10.3 K/mm3 (4.4-11.0)
[2020-09-23] MEDS: Sucralfate 1 GM Tablet PO (11:31)
--- NOTE | 2020-09-23 11:31 | DCINST_ITS ---
- Discharge Diagnoses Current Active Problems: Current Active and Chronic Problems (Last Updated 09/20/20 @ 23:[address] 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 Allergies/Adverse Reactions: Allergies amlodipine besylate [From Norvasc] Allergy (Verified 09/20/20 18:53) Unknown ceftriaxone Allergy (Verified 09/20/20 18:53) Rash doxazosin [From Cardura] Allergy (Verified 09/20/20 18:53) Unknown doxazosin mesylate [From Cardura] Allergy (Verified 09/20/20 18:53) Other VEINS TURNED RED doxycycline Allergy (Verified 09/20/20 18:53) Unknown Pt doesn't remember enalapril maleate [From Vasotec] Allergy (Verified 09/20/20 18:53) Rash enalaprilat dihydrate [From Vasotec] Allergy (Verified 09/20/20 18:53) Rash hydroxyzine HCl [From Vistaril] Allergy (Verified 09/20/20 18:53) Rash hydroxyzine pamoate [From Vistaril] Allergy (Verified 09/20/20 18:53) Rash meperidine HCl [From Demerol] Allergy (Verified 09/20/20 18:53) Rash Sulfa (Sulfonamide Antibiotics) Allergy (Verified 09/20/20 18:53) Hives sulfamethoxazole [From Bactrim] Allergy (Verified 09/20/20 18:53) Hives trimethoprim [From Bactrim] Allergy (Verified 09/20/20 18:53) Hives losartan Adverse Reaction (Unknown, Verified 09/20/20 18:53) Unknown Medications to take at Discharge Aspirin E.C. [Ecotrin] 81 mg PO DAILY@0800 #30 tab 04/09/19 Atorvastatin Calcium [Lipitor] 40 mg PO QHS #30 tab 04/09/19 metoprolol tartrate 50 mg tablet 50 mg PO BID 12/04/19 Furosemide 40 mg PO DAILY 04/30/20 Spironolactone 25 mg PO DAILY 04/30/20 Miglitol 25 mg PO DINNER 06/24/20 Prednisone 5 mg PO DAILY 06/24/20 potassium chloride 20 mEq tablet,extended release 20 meq PO DAILY #90 tab 08/31/20 Ondansetron [Zofran Odt] 4 mg PO Q8H PRN PRN #10 tab 09/20/20 Acetaminophen [Tylenol Tablet] 650 mg PO Q6H PRN PRN tablet 09/23/20 Pantoprazole Sodium [Protonix] 40 mg PO BID 60 Days #120 tab 09/23/20 Pantoprazole Sodium [Protonix] 40 mg PO DAILY #30 tab 09/23/20 Sucralfate [Carafate] 1 gm PO 4X/DAY 30 Days #120 tab 09/23/20 The following prescriptions were given: Sucralfate [Carafate] 1 gm PO 4X/DAY 30 Days #120 tab Transmission Status: Received by [address] Pantoprazole Sodium [Protonix] 40 mg PO BID 60 Days #120 tab Transmission Status: Received by [address] Pantoprazole Sodium [Protonix] 40 mg PO DAILY #30 tab Transmission Status: Received by [address] Ondansetron [Zofran Odt] 4 mg PO Q8H PRN PRN #10 tab PRN Reason: Nausea Prescription Printed Primary Care Physician: Aaron Tidwell MD [Primary Care Provider] - 1-2 Days if not improving Please follow up with your Primary Care Physician in: 1-2 weeks Test Results: Test results from this visit will be discussed in further detail at your follow- up appointment, if applicable. Please Follow Up With: Rubi Valles MD When: 2 weeks Proposed Discharge Date: 09/23/20
--- NOTE | 2020-09-23 16:14 | DS.PCM_ITS ---
<Pola Leung - Last Filed: 09/23/20 16:14> Discharge Date and Diagnosis Date of Admission: 09/20/20 Date of Discharge: 09/23/20 - Primary Discharge Diagnosis Acute Problems: Nausea vomiting, diarrhea - acute viral gastroenteritis epigastric pain 2/2 gastric ulcer acute blood loss anemia - 2/2 upper GI bleed. - Secondary Discharge Diagnosis Chronic Problems: Chronic Problems (Last Updated 09/20/20 @ 23:[address] 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) LYN (obstructive sleep apnea) (Chronic) GERD (gastroesophageal reflux disease) (Chronic) PAOD (peripheral arterial occlusive disease) (Chronic) Depression (Chronic) Ulcer of right lower extremity with fat layer exposed (Chronic) Ulcer of left lower extremity with fat layer exposed (Chronic) Calciphylaxis (Chronic) Venous insufficiency (chronic) (peripheral) (Chronic) Sarcoidosis (Chronic) MRSA (methicillin resistant staph aureus) culture positive (Chronic) 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 No dilated loops of small bowel or bowel wall thickening. 2. Nonobstructing left nephrolithiasis. No hydronephrosis. RAD/Chest 1 View (Portable) IMPRESSION: Developing right lower lobe infiltrate or atelectasis. RAD/Chest PA and Lateral IMPRESSION: Stable right lower lobe infiltrate or atelectasis Venous Duplex: Interpretation Summary No evidence for acute deep venous thrombosis bilateral lower extremities with patent and compressible bilateral great saphenous veins. Please see limitations on ability to interrogate bilateral femoral veins. Pulsatile venous flow noted consistent with proximal venous hypertension or obstruction. Clinical correlation would be appropriate. EGD: Impression: - Z-line variable, 33 cm from the incisors. Biopsied. - Small hiatal hernia. - Non-bleeding gastric ulcer. Biopsied. - Gastritis. - Erythematous duodenopathy. Recommendation: - Await pathology results. - [facility] patient to [facility] for possible discharge same day. - Resume regular diet. - Use Protonix (pantoprazole) 40 mg PO BID for 2 months, then 40 mg PO daily indefinitely. - Use sucralfate tablets 1 gram PO QID for 1 month. - Continue present medications. Consults: [facility] - gen surgery Operations: None Procedures: EGD Summary of Care Provided: Hospital Course: The patient is a 74 year old F with pmhx of afib not on OAC 2/2 hx GI bleeding, hx ulcers, CKDIII, T2DM, Sarcoidosis on chronic prednisone therapy, who presented to the ER with intractable nausea, vomiting, and diarrhea with midepigastric discomfort. She appeared to have Afib RVR. For this she received oral metoprolol and cardizem bolus with good improvement. She was felt to have gastroenteritis and admitted with supportive care, IV fluids. She was placed on telemetry and home metoprolol was continued. She had a dark stool and hemoccult was positive. Hemoglobin however was stable. General surgery was consulted. She was taken for EGD and found to have a gastric ulcer not actively bleeding,gastritis, and erythematous duodenopathy. BID PPI and carafate were recommended. The patient remained stable with good heart rate control and resolution of her vomiting and diarrhea. Diet was successfully advanced. She was discharged home in stable condition. Follow up with PCP 1-2 weeks and with General surgery 2 weeks. This patient was seen by Pola Leung PA-C under the supervision of Dr. Lopez. [] - Physical Exam Vitals/I&O's: Vital Signs Temp Pulse Resp BP Pulse Ox 96.8 F L 83 20 H 130/84 H 96 09/23/20 09:00 09/23/20 12:00 09/23/20 09:00 09/23/20 09:00 09/23/20 09:06 Oxygen Flow Rate (L/min) 2 Oxygen Delivery Method Room Air Weight: 197 lb 8.547 oz Body Mass Index (BMI) 36.1 Finger Stick Blood Glucose 124 Intake and Output for Last 24 Hours 09/21/20 09/22/20 09/23/20 23:59 23:59 23:59 Intake Total 1380 / 1480 2075 / 2075 350 / 350 Output Total 350 / 350 2900 / 2900 1000 / 1000 Balance 1030 / 1130 -825 / -825 -650 / -650 General: Alert, Oriented x3, Cooperative HEENT: Atraumatic, PERRLA, EOMI, Normocephalic Neck: Supple, No JVD, Negative Carotid Bruits Lungs: Clear to auscultation, Normal air movement Cardiovascular: Regular rate, No murmurs Abdomen: Bowel Sounds Present, Soft, Non Tender Extremities: No edema, Capillary Refill Less than 3 Seconds Skin: No rashes, No breakdown Musculoskeletal: No Tenderness to Palpation of Joints or Extremities Neurological: Cranial nerves II-XII grossly intact Psych/Mental Status: Normal Affect, Appropriate, Alert and oriented to time, place, person, mood and affect Microbiology Past 72 Hours 09/22/20 10:41 Stool Stool Occult Blood (ELENITA) - Final Occult Blood Positive 09/20/20 19:37 Mucosa - Nose SARS-CoV-2 Antigen (Rapid) - Final Laboratory Results 09/22/20 13:00: Hemoglobin A1c 8.2 H 09/22/20 16:45: POC Glucose 171 H 09/22/20 21:46: POC Glucose 133 H 09/23/20 06:25: POC Glucose 100 09/23/20 10:04: WBC 10.3, RBC 4.99, Hgb 14.7, Hct 47.5 H, MCV 95.2, MCH 29.5, MCHC 30.9 L, RDW Std Deviation 53.1 H, RDW Coeff of [place] 15.1 H, Plt Count 113 L, MPV 11.6, Immature Gran % (Auto) 0.600, Neut % (Auto) 69.9, Lymph % (Auto) 19.1, [place] % (Auto) 8.7, Eos % (Auto) 1.2, Baso % (Auto) 0.5, Absolute Neuts (auto) 7.2, Absolute Lymphs (auto) 1.96, Nucleated RBC % 0 09/23/20 10:04: Sodium 137, Potassium 3.4 L, Chloride 107, Carbon Dioxide 25.0, Anion Gap 5, BUN 23 H, Creatinine 1.40 H, Estim Creat Clear Calc 28.31, Est GFR (MDRD) Af Amer 47 L, Est GFR (MDRD) Non-Af 39 L, BUN/Creatinine Ratio 16.4, Glucose 93, Calcium 8.7, Magnesium 1.6 Discharge Diet: Low fat/ Low Cholesterol, 1800 Calorie Control Diet, 2000 mg Sodium Diet Discharge Activity: Return to Normal Activity Home Medications: Medications to take at Discharge Aspirin E.C. [Ecotrin] 81 mg PO DAILY@0800 #30 tab 04/09/19 Atorvastatin Calcium [Lipitor] 40 mg PO QHS #30 tab 04/09/19 metoprolol tartrate 50 mg tablet 50 mg PO BID 12/04/19 Furosemide 40 mg PO DAILY 04/30/20 Spironolactone 25 mg PO DAILY 04/30/20 Miglitol 25 mg PO DINNER 06/24/20 Prednisone 5 mg PO DAILY 06/24/20 potassium chloride 20 mEq tablet,extended release 20 meq PO DAILY #90 tab 08/31/20 Ondansetron [Zofran Odt] 4 mg PO Q8H PRN PRN #10 tab 09/20/20 Acetaminophen [Tylenol Tablet] 650 mg PO Q6H PRN PRN tab 09/23/20 Pantoprazole Sodium [Protonix] 40 mg PO BID 60 Days #120 tab 09/23/20 Pantoprazole Sodium [Protonix] 40 mg PO DAILY #30 tab 09/23/20 Sucralfate [Carafate] 1 gm PO 4X/DAY 30 Days #120 tab 09/23/20 Following Prescriptions Were Given to Patient: Sucralfate [Carafate] 1 gm PO 4X/DAY 30 Days #120 tab Transmission Status: Received by [facility] Pantoprazole Sodium [Protonix] 40 mg PO BID 60 Days #120 tab Transmission Status: Received by [facility] Pantoprazole Sodium [Protonix] 40 mg PO DAILY #30 tab Transmission Status: Received by [facility] Ondansetron [Zofran Odt] 4 mg PO Q8H PRN PRN #10 tab PRN Reason: Nausea Prescription Printed Primary Care Physician: Aaron Tidwell MD [Primary Care Provider] - 1-2 Days if not improving Please follow up with your Primary Care Physician in: 1-2 weeks Please Follow Up With: Rubi Valles MD When: 2 weeks Patient Instructions: ED Vomiting and Diarrhea ... Disposition: Home Minutes spent on discharge:: 35 Patient Condition:: Stable Medical Necessity - Tobacco Use Smoking Status: Never smoker Meaningful Use Info Meaningful Use Diagnoses (Choose all that apply): None applicable <Frederic Lopez - Last Filed: 09/25/20 15:00> Discharge Date and Diagnosis - Secondary Discharge Diagnosis Chronic Problems: Chronic Problems (Last Updated 09/20/20 @ 23:[address] 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) LYN (obstructive sleep apnea) (Chronic) GERD (gastroesophageal reflux disease) (Chronic) PAOD (peripheral arterial occlusive disease) (Chronic) Depression (Chronic) Ulcer of right lower extremity with fat layer exposed (Chronic) Ulcer of left lower extremity with fat layer exposed (Chronic) Calciphylaxis (Chronic) Venous insufficiency (chronic) (peripheral) (Chronic) Sarcoidosis (Chronic) MRSA (methicillin resistant staph aureus) culture positive (Chronic) 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 I have independently interviewed and examined the patient and reviewed pertinent history, examination findings, laboratory and plan of management. I have reviewed the note and agree with the documented findings with the few additional points. In brief, patient is 73 female admitted with interval nausea, vomiting and diarrhea and epigastric pain. SARS-CoV-2 is negative. Patient had 1 black tarry stool, melena after admission. Since she did not had any bowel movement for 24 hours after admission, stool for C. difficile and enteric bacteriology panel was canceled as per protocol. Lipase negative. CT abdomen negative for acute intra-abdominal abnormality. Chest x-ray shows developing right lower lobe infiltrate or atelectasis but CT abdomen lower cuts negative for any consolidation. Stool for occult blood positive. Surgeon was consulted and agreed for EGD for tomorrow a.m. Patient on oral Protonix 40 twice daily changed to IV twice daily. No significant drop in H&H from 14.9/48-14/47. Patient hemodynamically stable. Prednisone and spironolactone was temporarily held. Patient had EGD done and showed prepyloric gastric ulcer not actively bleeding and mild duodenitis. Patient discharged on Protonix twice daily and Carafate, prescription sent to the patient's pharmacy by the surgeon. Patient remained stable. Patient also has A. fib with RVR, sick sinus syndrome status post loop recorder. Patient had 2D echo in June 2019 as reported below. Interpretation Summary Segmental dysfunction with 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 (see wall motion). The estimated ejection fraction is 55 %. The left atrium is moderately enlarged. The right atrium is moderately enlarged. There is mild to moderate mitral annular calcification. Extension of the mitral annular calcification onto the base of the posterior mitral valve leaflet. Mild diffuse mitral valve thickening. The mitral papillary muscle appears thickened and/or calcified. Mild (1+) mitral valve insufficiency. Moderate (2+) tricuspid valve insufficiency. Trivial pulmonic valve insufficiency. Mildly dilated aortic root. Right ventricular systolic pressure estimated to be 57 mmHg. Unable to assess diastolic dysfunction. Patient other comorbid including type 2 diabetes mellitus, CKD stage III, sarcoidosis, secondary pulmonary hypertension, chronic atherosclerotic peripheral arterial disease, chronic venous stasis changes with venous ulcer status post skin graft. Patient on prednisone for sarcoidosis. Venous duplex was negative for DVT Discharge medication reconciliation done. Discharge follow-up instructions completed. Discharge process discussed with the patient and all questions were answered to patient's satisfaction. Total time spent, exact 35 minutes on discharge meds reconciliation, examination, coordination of care with nurses and ancillary staff, review of imaging and blood test and discussion with the patient on follow-up instructions I have discussed my assessment with Pola BEGUM and orders have been reviewed. [] Objective: Seen and examined. Patient hemodynamically stable, BP 130/84 and heart rate 77/min. Pulse ox 96% on room air. Patient wants to go home Physical exam General: Alert, Oriented x3, Cooperative HEENT: Atraumatic, PERRLA, EOMI, Normocephalic Oral: No Gingival or Mucosal Lesions/ Ulcerations Neck: Supple, No JVD, Negative Carotid Bruits Lungs: Air entry equal in bilateral lung bases. No crepitation/rhonchi Cardiovascular: Regular rate, Regular Rhythm, Normal S1, Normal S2, No murmurs. Has loop recorder. Abdomen: Subtle deep epigastric tenderness. Bowel Sounds Present, Soft, Non-Distended. No palpable mass : No renal angle tenderness. No suprapubic tenderness. Extremities: No edema, Capillary Refill Less than 3 Seconds Skin: No rashes, No breakdown Musculoskeletal: No Tenderness to Palpation of Joints or Extremities Neurological: Cranial nerves II-XII grossly intact, Deep Tendon Reflexes 2+/4 and Symmetrical, Neuro grossly intact Psych/Mental Status: Normal Affect, Appropriate. - Physical Exam Vitals/I&O's: Vital Signs Temp Pulse Resp BP Pulse Ox 96.8 F L 83 20 H 130/84 H 96 09/23/20 09:00 09/23/20 12:00 09/23/20 09:00 09/23/20 09:00 09/23/20 09:06 Oxygen Flow Rate (L/min) 2 Oxygen Delivery Method Room Air Weight: 197 lb 8.547 oz Body Mass Index (BMI) 36.1 Finger Stick Blood Glucose 124 Intake and Output for Last 24 Hours 09/23/20 09/24/20 09/25/20 23:59 23:59 23:59 Intake Total 350 / 350 Output Total 1000 / 1000 Balance -650 / -650 Microbiology Past 72 Hours 09/22/20 10:41 Stool Stool Occult Blood (ELENITA) - Final Occult Blood Positive Inpatient E&M: 93816 Disch Hosp
== END 2020-09-23 11:32 | disposition home or self-care (01) ==
LOC: ED 19:21 → PCU 23:35
PROVIDERS: Anesthesiology; Physician Assistant; Surgery; Admitting Provider Hospitalist; Emergency Provider Emergency Medicine; PCP Internal Medicine; Visit Provider Internal Medicine
PROC: 0DJ08ZZ Inspection of Upper Intestinal Tract, Via Natural or Artificial Opening Endoscopic (ICD-10-PCS; CPT 43235; principal; 2020-09-23 07:55)
DX: A08.4 Viral intestinal infection, unspecified (principal); K25.9 Gastric ulcer, unspecified as acute or chronic, without hemorrhage or perforation; D62 Acute posthemorrhagic anemia; E86.0 Dehydration; I11.0 Hypertensive heart disease with heart failure; I48.0 Paroxysmal atrial fibrillation; E11.51 Type 2 diabetes mellitus with diabetic peripheral angiopathy without gangrene; G47.33 Obstructive sleep apnea (adult) (pediatric); K21.9 Gastro-esophageal reflux disease without esophagitis; E05.90 Thyrotoxicosis, unspecified without thyrotoxic crisis or storm; N18.30 Chronic kidney disease, stage 3 unspecified; E11.22 Type 2 diabetes mellitus with diabetic chronic kidney disease; D86.9 Sarcoidosis, unspecified; D69.6 Thrombocytopenia, unspecified; I25.2 Old myocardial infarction; K44.9 Diaphragmatic hernia without obstruction or gangrene; K31.89 Other diseases of stomach and duodenum; K29.70 Gastritis, unspecified, without bleeding; R79.89 Other specified abnormal findings of blood chemistry; R94.31 Abnormal electrocardiogram [ECG] [EKG]; R06.02 Shortness of breath; M79.605 Pain in left leg; I25.10 Atherosclerotic heart disease of native coronary artery without angina pectoris; I27.21 Secondary pulmonary arterial hypertension; Z79.899 Other long term (current) drug therapy; Z79.52 Long term (current) use of systemic steroids; Z79.82 Long term (current) use of aspirin; M79.89 Other specified soft tissue disorders
CPT/HCPCS: 43239; 36415; 71045; 71046; 74176; 80048; 80053; 81001; 82274; 82962; 83036; 83690; 83735; 84484; 85014; 85018; 85025; 87426; 88305; 88313; 88342; 93005; 93970; 96361; 96365; 96366; 96372; 96375; 96376; 97110; 97116; 97162; 97166; 97530; 99218; 99285; J7040; J7120; P9612; A4216; G0378; J2405

== ENCOUNTER → 2020-09-29 11:13 | Outpatient (CLI) | payer MEDICARE, SELFPAY ==
[2019-06-21 15:30] VITALS: BMI 35.8
[2020-06-24 14:58] VITALS: BMI 34.9
[2020-09-23 04:17] VITALS: BMI 36.1
--- NOTE | 2020-09-29 11:17 | US_ITS ---
HISTORY: NODULE COMPARISON: 04/15/2020, 05/03/2019 TECHNIQUE: Grayscale and color Doppler sonography of the thyroid gland. FINDINGS: RIGHT LOBE: 5.1 x 1.9 x 1.7 cm LEFT LOBE: 4.5 x 1.7 x 1.7 cm ISTHMUS: 2.9 mm Thyroid parenchyma is mildly heterogeneous. Lesion in the right inferior thyroid lobe measures 10 x 7 x 9 mm and appears mixed solid and cystic with hyperechoic and anechoic areas, smoothly marginated, wider than tall without definite calcification (TIRADS 2). This is located in region of cystic changes on 04/15/2020 and in the same location as a more solid-appearing lesion in the right thyroid lobe on 05/03/2019 measuring 7 x 6 x 9 mm at that time. Nodule in the inferior left thyroid lobe measures 10 x 8 x 9 mm with increased cystic component compared to previous, smoothly marginated, wider than tall without calcification (TIRADS 2). This measures 9 x 9 x 10 mm on 04/15/2020. US/Thyroid IMPRESSION: Bilateral thyroid nodules, as described, not suspicious by morphology. at 0615 Reported and signed by: Livier Fields MD Electronically Signed: Livier Fields MD at 6:15 EST Tel , Service support ,
== END ==
PROVIDERS: PCP Internal Medicine; Referring Provider Internal Medicine; Visit Provider Internal Medicine
DX: E04.1 Nontoxic single thyroid nodule (principal)
CPT/HCPCS: 76536

== ENCOUNTER → 2020-10-21 08:06 | Outpatient (CLI) | payer MEDICARE, SELFPAY ==
[2019-06-21 15:30] VITALS: BMI 35.8
[2020-06-24 14:58] VITALS: BMI 34.9
[2020-09-23 04:17] VITALS: BMI 36.1
[2020-10-21 09:49] LABS: PTHIN 76.6 pg/mL (18.4-80.1)
== END ==
PROVIDERS: PCP Internal Medicine; Referring Provider Internal Medicine Nephrology; Visit Provider Internal Medicine Nephrology
DX: E83.59 Other disorders of calcium metabolism (principal)
CPT/HCPCS: 36415; 83970

== ENCOUNTER → 2020-10-27 13:13 | Outpatient (CLI) | payer MEDICARE, SELFPAY ==
[2019-06-21 15:30] VITALS: BMI 35.8
[2020-09-23 04:17] VITALS: BMI 36.1
[2020-10-27 15:30] LABS: Albumin, Serum 4.1 g/dL (3.2-5.0); BUN 29 mg/dL (7-18); BUN/Creat Ratio 17.2 RATIO (10-20); Chloride 100 mmol/L (98-107); Creatinine, Serum 1.69 mg/dL (0.55-1.02); EST Glomerular Filtration Rate 31 mL/min (>60); Est Glom Filt Rate - Afr Amer 38 mL/min (>60); Glucose 160 mg/dL (74-106); Phosphorus 2.8 mg/dL (2.5-4.9); Potassium 4.1 mmol/L (3.5-5.1); Sodium Level 138 mmol/L (136-145)
== END ==
PROVIDERS: PCP Internal Medicine; Visit Provider Internal Medicine Nephrology
DX: N18.32 Chronic kidney disease, stage 3b (principal)
CPT/HCPCS: 36415; 80069

== ENCOUNTER → 2020-12-22 08:57 | Outpatient (CLI) | payer MEDICARE, SELFPAY ==
[2019-06-21 15:30] VITALS: BMI 35.8
[2020-12-17 12:33] VITALS: BMI 34.5
[2020-12-22 10:00] LABS: PTHIN 77.9 pg/mL (18.4-80.1)
[2020-12-22 10:05] LABS: Albumin, Serum 3.9 g/dL (3.2-5.0); Anion Gap 5 (5-15); BUN 43 mg/dL (7-18); BUN/Creat Ratio 25.9 RATIO (10-20); Calcium,Total 9.6 mg/dL (8.5-10.1); Chloride 98 mmol/L (98-107); Creatinine, Serum 1.66 mg/dL (0.55-1.02); EST Glomerular Filtration Rate 32 mL/min (>60); Est Glom Filt Rate - Afr Amer 39 mL/min (>60); Glucose 224 mg/dL (74-106); Potassium 3.8 mmol/L (3.5-5.1); Sodium Level 135 mmol/L (136-145)
== END ==
PROVIDERS: Internal Medicine Cardiovascular Disease; PCP Internal Medicine; Referring Provider Internal Medicine Nephrology; Visit Provider Internal Medicine Nephrology
DX: N18.32 Chronic kidney disease, stage 3b (principal); E83.59 Other disorders of calcium metabolism
CPT/HCPCS: 36415; 80048; 82040; 83970

== ENCOUNTER 2020-12-29 06:44 | Day surgery (SDC) | payer MEDICARE, SELFPAY ==
[2019-06-21 15:30] VITALS: BMI 35.8
[2020-12-17 12:33] VITALS: BMI 34.5
[2020-12-28 08:41] VITALS: BMI 34.5
--- NOTE | 2020-12-29 08:14 | CL.IE_ITS ---
Patient: JACQUES CARTER Study Date: 12/29/2020 Performing: Epifanio Childers MD : [id number] Age: 75 Gender: female PROCEDURES PERFORMED [id number] OF LOOP RECORDER INDICATIONS End-of-life indicator PROCEDURE DETAILS The patient was brought to the Catheterization Lab in the postabsorptive nonsedated state. Infor med consent was obtained prior to the procedure. Local anesthetic was given subcutaneously to the le ft upper chest area with Lidocaine 2%. Incision was made to the left chest area.. ICM Loop Recorder w as removed. Skin closure was completed with 3-0 Vicryl. The patient tolerated the procedure well. Estimated Blood Loss: < 10 mls IMPLANTED / EX-PLANTED DEVICES DEVICE PARAMETERS CONCLUSIONS / RECOMMENDATIONS Device Conclusions: Successful Removal of a patient activated loop recorder. Device Recommendations: Follow up with Primary Care Physician PROCEDURE MEDICATIONS Versed 1 mg IV Oxygen: 2 L/min via nasal cannula Antibiotic given in appropriate timeframe. Ancef 2 Gm IV @ 12/29/2020 07:43:37 Signed By Epifanio Childers MD On 12/29/2020 08:13:23 Epifanio Childers MD
== END 2020-12-29 09:20 | disposition home or self-care (01) ==
LOC: CLSP 06:45
PROVIDERS: PCP Internal Medicine; Referring Provider Internal Medicine Cardiovascular Disease; Visit Provider Internal Medicine Cardiovascular Disease
DX: I48.11 Longstanding persistent atrial fibrillation (principal); Z95.5 Presence of coronary angioplasty implant and graft; Z45.09 Encounter for adjustment and management of other cardiac device; G47.33 Obstructive sleep apnea (adult) (pediatric); E11.9 Type 2 diabetes mellitus without complications; N18.30 Chronic kidney disease, stage 3 unspecified; K21.9 Gastro-esophageal reflux disease without esophagitis; F32.9 Major depressive disorder, single episode, unspecified; I12.9 Hypertensive chronic kidney disease with stage 1 through stage 4 chronic kidney disease, or unspecified chronic kidney disease; I25.10 Atherosclerotic heart disease of native coronary artery without angina pectoris; I25.2 Old myocardial infarction
CPT/HCPCS: 33286; 99152; 99153; J7040

== ENCOUNTER 2021-01-08 20:05 | Inpatient (IN) | payer MEDICARE, SELFPAY ==
[2019-06-21 15:30] VITALS: BMI 35.8
[2020-12-28 08:41] VITALS: BMI 34.5
[2021-01-08] VITALS (7 sets, daily range): BP systolic 96–151; BP diastolic 73–88; PULSE 74–104; RESP 15–18; TEMP 36.2; O2SAT 92–98; BMI 32.1
--- NOTE | 2021-01-08 20:21 | EKG12_ITS ---
Test Reason : N/V Blood Pressure : / mmHG Vent. Rate : 112 BPM Atrial Rate : 129 BPM P-R Int : 000 ms QRS Dur : 092 ms QT Int : 340 ms P-R-T Axes : 000 070 248 degrees QTc Int : [address] & T wave abnormality, consider inferolateral ischemia Abnormal ECG Confirmed by AMANDA BACON, PRATEEK ([id number]), editorial manager CONRADO JOHNSON ([id number]) on 01/12/2021 9:19:57 AM Referred By: ZAY Confirmed By:GABY PATEL MD
[2021-01-08 20:31] LABS: Absolute Lymphocyte Count 1.14 X10^3/uL (0.83-4.51); Absolute Neutrophil Count 10.2 X10^3/uL (2.0-7.7); Basophil# 0.03 X10^3/uL; Basophil% 0.2 % (0-1); Eosinophil# 0.01 X10^3/uL; Eosinophils% 0.1 % (0-5); Hematocrit 50.5 % (37-47); Hemoglobin 16.5 g/dL (12.0-15.0); Lymphocyte # 1.14 X10^3/ul (0.83-4.51); Lymphocyte % 9.4 % (19-41); Mean Corp Hgb Conc 32.7 g/dL (32-36); Mean Corpuscular Hgb 31.2 pg (27.0-32.0); Mean Corpuscular Volume 95.5 fL (81-99); Mean Platelet Vol. 12.5 fl (6.2-12.0); Monocyte% 5.7 % (0-10); NRBC Flagged by Analyzer 0 % (0-5); Neutrophil # 10.16 X10^3/uL (2.7-7.7); Neutrophil % 83.5 % (47-70); Platelet Count 127 K/mm3 (150-450); RBC Distribution Width CV 15.8 % (11.6-14.6); RBC Distribution Width SD 55.4 fl (35.1-43.9); Red Blood Count 5.29 M/mm3 (4.2-5.4); White Blood Count 12.2 K/mm3 (4.4-11.0)
--- NOTE | 2021-01-08 20:34 | RAD_ITS ---
STUDY: X-RAY CHEST REASON FOR EXAM: Female, 75 years old. afib TECHNIQUE: Single AP portable view of the chest. COMPARISON: September 21, 2020 FINDINGS: There are interstitial fibrotic changes of the lungs. There is no demonstrated pleural abnormality. There is mild cardiac enlargement. Normal mediastinum and kenn. Normal visualized pulmonary arteries. There is atherosclerotic calcification of the aortic arch with tortuosity. There are diffuse degenerative changes of the visualized thoracic spine. Normal visualized ribs, clavicles, and shoulders. Reidentification of surgical clips in the supraclavicular region. There is no demonstrated abnormality of the visualized soft tissue structures of the upper abdomen. RAD/Chest 1 View (Portable) IMPRESSION: Degenerative changes, as described above. No demonstrated acute cardiopulmonary process. Electronically Signed: Daniel Roblero MD at 20:59 EDT , Service support ,
--- NOTE | 2021-01-08 21:14 | ED.DCSUM_ITS ---
History of Present Illness Chief Complaint: Nausea/Vomiting Informant: Patient, Family, [employer]room Onset: Today Narrative: Patient brought in by EMS from home secondary to acute nausea and vomiting this evening. No hematemesis. No diarrhea. Denies chest or abdominal pain. Status post Phenergan IV per EMS. Per EMS EKG noted A. fib with RVR, however patient history of chronic A. fib. Past Medical History - Allergies and Home Meds Allergies/Adverse Reactions: Allergies amlodipine besylate [From Norvasc] Allergy (Verified 01/08/21 20:12) Unknown ceftriaxone Allergy (Verified 01/08/21 20:12) Rash doxazosin [From Cardura] Allergy (Verified 01/08/21 20:12) Unknown doxazosin mesylate [From Cardura] Allergy (Verified 01/08/21 20:12) Other VEINS TURNED RED doxycycline Allergy (Verified 01/08/21 20:12) Unknown Pt doesn't remember enalapril maleate [From Vasotec] Allergy (Verified 01/08/21 20:12) Rash enalaprilat dihydrate [From Vasotec] Allergy (Verified 01/08/21 20:12) Rash hydroxyzine HCl [From Vistaril] Allergy (Verified 01/08/21 20:12) Rash hydroxyzine pamoate [From Vistaril] Allergy (Verified 01/08/21 20:12) Rash meperidine HCl [From Demerol] Allergy (Verified 01/08/21 20:12) Rash Sulfa (Sulfonamide Antibiotics) Allergy (Verified 01/08/21 20:12) Hives sulfamethoxazole [From Bactrim] Allergy (Verified 01/08/21 20:12) Hives trimethoprim [From Bactrim] Allergy (Verified 01/08/21 20:12) Hives losartan Adverse Reaction (Unknown, Verified 01/08/21 20:12) Unknown Primary Care Physician: Aaron Tidwell MD [Primary Care Provider] - Past Medical History: - - Chronic atrial fibrillation, hypertension, hyperlipidemia, coronary disease, sleep apnea, sarcoidosis Surgical History: cataract, cholecystectomy, hysterectomy, - Smoking Status: Never smoker - Family History Maternal Family History: Family History (Last Reviewed 12/17/20 @ 14:[address] Epifanio Childers MD) Mother Diabetes Brother Diabetes Myocardial infarction Cancer Son Hypertension Daughter Arthritis Diabetes Hypertension Brother Cancer Family History: Reports: No pertinent history Paternal Family History: Family History (Last Reviewed 12/17/20 @ 14:[address] Epifanio Childers MD) Mother Diabetes Brother Diabetes Myocardial infarction Cancer Son Hypertension Daughter Arthritis Diabetes Hypertension Brother Cancer Family History: Reports: No pertinent history Review of Systems General: Denies: Chills, Fever, Sweats Eyes: Denies: Visual changes - bilaterally, Diplopia ENT: Denies: Rhinorrhea, Sore throat Cardiovascular: Denies: Chest pain, Palpitations Respiratory: Denies: Dyspnea, Cough, Dyspnea on exertion Gastrointestinal: Reports: Nausea, Vomiting. Denies: Abdominal pain, Diarrhea, Melena, Hematochezia Genitourinary: Denies: Dysuria, Hematuria, Frequency Musculoskeletal: Denies: Back pain, Extremity Pain Skin: Denies: Rash, Wounds Neurological: Denies: Headache, Weakness, Numbness Physical Exam Vital Signs/Narrative: Vital Signs Temp Pulse Resp BP Pulse Ox 01/08/21 20:10 97.1 F L 104 H 18 151/88 H 92 01/08/21 20:06 97.1 F L 97 18 151/88 H 92 General: Well nourished, Well developed, No Acute Distress, - - Somnolent secondary to Phenergan during exam, per nursing more awake on arrival. Head: Normocephalic, Atraumatic Eyes: Perrl, EOMI ENT: No rhinorrhea, Dry mucous membranes Neck: Supple, Nontender Cardiovascular: Irregular, Tachycardia Respiratory: No distress, CTA bilaterally, Chest nontender Abdomen: Soft, Nontender, Nondistended, Hypoactive bowel sounds Back: Nontender, Normal Inspection Extremities: Nontender, No edema Skin: Normal color, No rash Neurological: Cranial nerves II-XII grossly intact, Normal Strength, Normal Sensation, - - Somnolent moving all 4 extremities. Psychological: Normal Mood Diagnostic/Tx/Re-eval Chest X-Ray - ED: 1 View, Read by ED Physician, Read by Radiologist, No Acute Disease Clinical Impression(s) from Imaging Studies Chest X-Ray 01/08/21 20:34 IMPRESSION: Degenerative changes, as described above. No demonstrated acute cardiopulmonary process. Electronically Signed: Daniel Roblero MD at 20:59 EDT , Service support , Abnormal Lab Results 01/08/21 01/08/21 01/08/21 20:23 20:23 20:59 WBC 12.2 H RBC 5.29 Hgb 16.5 H Hct 50.5 H MCV 95.5 MCH 31.2 MCHC 32.7 RDW Std Deviation 55.4 H RDW Coeff of Heike 15.8 H Plt Count 127 L MPV 12.5 H Immature Gran % (Auto) 1.100 H Neut % (Auto) 83.5 H Lymph % (Auto) 9.4 L [place] % (Auto) 5.7 Eos % (Auto) 0.1 Baso % (Auto) 0.2 Absolute Neuts (auto) 10.2 H Absolute Lymphs (auto) 1.14 Nucleated RBC % 0 Sodium Cancelled Cancelled Potassium Cancelled Cancelled Chloride Cancelled Cancelled Carbon Dioxide Cancelled Cancelled Anion Gap Cancelled Cancelled BUN Cancelled Cancelled Creatinine Cancelled Cancelled Estim Creat Clear Calc Cancelled Cancelled Est GFR (MDRD) Af Amer Cancelled Cancelled Est GFR (MDRD) Non-Af Cancelled Cancelled BUN/Creatinine Ratio Cancelled Cancelled Glucose Cancelled Cancelled Calcium Cancelled Cancelled Total Bilirubin Cancelled Cancelled AST Cancelled Cancelled ALT Cancelled Cancelled Alkaline Phosphatase Cancelled Cancelled Total Protein Cancelled Cancelled Albumin Cancelled Cancelled Globulin Cancelled Cancelled Albumin/Globulin Ratio Cancelled Cancelled Lipase Cancelled Cancelled Urine Color Urine Clarity Urine pH Ur Specific [place] Urine Protein Urine Glucose (UA) Urine Ketones Urine Occult Blood Urine Nitrite Urine Bilirubin Urine Urobilinogen Ur Leukocyte Esterase 01/08/21 22:05 WBC RBC Hgb Hct MCV MCH MCHC RDW Std Deviation RDW Coeff of [place] Plt Count MPV Immature Gran % (Auto) Neut % (Auto) Lymph % (Auto) [place] % (Auto) Eos % (Auto) Baso % (Auto) Absolute Neuts (auto) Absolute Lymphs (auto) Nucleated RBC % Sodium Potassium Chloride Carbon Dioxide Anion Gap BUN Creatinine Estim Creat Clear Calc Est GFR (MDRD) Af Amer Est GFR (MDRD) Non-Af BUN/Creatinine Ratio Glucose Calcium Total Bilirubin AST ALT Alkaline Phosphatase Total Protein Albumin Globulin Albumin/Globulin Ratio Lipase Urine Color Yellow Urine Clarity Clear Urine pH 6.0 Ur Specific [place] 1.015 Urine Protein 30 H Urine Glucose (UA) 1000 H Urine Ketones Negative Urine Occult Blood 10 H Urine Nitrite Negative Urine Bilirubin Negative Urine Urobilinogen Normal Ur Leukocyte Esterase Negative - EKG Initial EKG Interpretation: Atrial Fibrillation - A. fib rate of 112, nonspecific ST depressions lateral leads, no elevations. New changes from August 2020. Similar findings in April 2020. - Medical Decision Making Patient vitals stable slight tachycardia however EKG slight A. fib with RVR. Nonspecific ST depressions seen there in April however not there in August. Cardiac work-up will be added she denies any chest pains. Abdominal labs were ordered. Pending final results. Reevaluation at 2210, patient more awake, stating continued nausea and had dry heaves. Reevaluation of abdomen she is tender right lower suprapubic region. That was not there earlier. History of cholecystectomy and hysterectomy she reports appendectomy however the appendectomy is not in the records. Has hypoactive bowel sounds. Last bowel movement was yesterday. She denies history of bowel obstruction. CT abdomen pelvis will be added for further evaluation. Patient order for Zofran. Patient signed out to evening physician. ED Disposition - Plan for ED Patient: Diagnosis: Abdominal pain, Nausea and vomiting Referrals: Aaron Tidwell MD [Primary Care Provider] -
[2021-01-08 22:14] LABS: Bacteria 0 SEEN /hpf (None Seen); Mucous, Urine 0 SEEN /hpf (<or=2+); Red Blood Cells-Urine 0 SEEN /hpf (0-5); Squamous Epithelial Cells - UA 0 SEEN /hpf (5-10)
[2021-01-08 22:15] LABS: Color, Urine Yellow (Yellow); Glucose, Dipstick 1000 mg/dl (Normal); Ketone-Dipstick Negative (Negative); Leukocyte Esterase-Dipstick Negative /ul (Negative); Nitrite-Dipstick Negative (Negative); Occult Blood-Urine 10 /ul (Negative); Protein-Dipstick 30 mg/dl (Negative); Specific Gravity, Urine 1.015 (1.002-1.030); Urine Bilirubin Dipstick Negative (Negative); Urine Clarity Clear (Clear); Urine Urobilinogen Normal (Normal)
--- NOTE | 2021-01-08 22:15 | CT_ITS ---
STUDY: CT ABDOMEN AND PELVIS WITHOUT CONTRAST REASON FOR EXAM: Female, 75 years old. vomiting Prior medical history: ABDOMEN PAIN,NAUSEA AND VOMITING TODAY -- HX:DIABETES,GERD,HTN,CKD STAGE 3,MRSA,A-FIB,CHF,SPINAL STENOSIS -- SURG:GB,HYSTERECTOMY,CARDIAC ABLATION,DARION,FUNDOPLICATION RADIATION DOSAGE (If Supplied By Facility): CTDIvol = ( 22.32 ) mGy, DLP = ( 1065.23 ) mGycm TECHNIQUE: Transaxial images were obtained from the dome of the diaphragm to the symphysis pubis without oral contrast, and without intravenous contrast. Sagittal and coronal images were reconstructed. Individualized dose optimization techniques were used for this CT. COMPARISON: CT of abdomen and pelvis dated September 20, 2020 FINDINGS: Mild pulmonary edema is seen in the bilateral lung bases likely due to chronic CHF. Coronary artery stent noted. Normal liver. No intrahepatic biliary duct dilatation or liver mass. There are surgical clips in the gallbladder fossa consistent with a prior cholecystectomy. Normal spleen. Normal pancreas. Normal bilateral adrenal glands. Normal right kidney. Chronic mild left pelviectasis. No demonstrated hydronephrosis. Stable 1 mm and 3 mm calyceal stones in the midpole of the left kidney.. No hydronephrosis or renal masses. No large stones. Normal visualized stomach. Normal small intestine. There are several sigmoid colonic diverticula consistent with diverticulosis. Unremarkable proximal colonic loops. No bowel dilatation or obstruction. No free air or free fluid. There is non-visualization of the appendix. There is diffuse atherosclerotic calcification of the abdominal aorta, without a demonstrated aneurysm. Normal inferior vena cava. Normal retroperitoneum. Normal urinary bladder. There is absence of the uterus consistent with a prior hysterectomy. Multiple injection granulomas/nodules seen in the anterior abdominal wall. There are diffuse degenerative changes of the visualized lumbar spine. CT/Abdomen/Pelvis without Cont IMPRESSION: 1. Mild bilateral lower lobe pulmonary edema likely due to chronic CHF. 2. Nonobstructing left kidney stones 3. No bowel dilatation or obstruction 4. Mild sigmoid diverticulosis Electronically Signed: Daniel Roblero MD at 23:20 EDT , Service support ,
[2021-01-08] MEDS: Ondansetron 4 MG/2 ML Vial IV (22:25)
[2021-01-08 22:26] LABS: White Blood Cells 0-5 SEEN /hpf (0-5)
[2021-01-08 23:16] LABS: AST(SGOT) 39 U/L (15-37); Alanine Aminotransfer ALT/SGPT 63 U/L (13-56); Albumin, Serum 3.5 g/dL (3.2-5.0); Alkaline Phosphatase 77 U/L (45-117); Anion Gap 9 (5-15); BUN 37 mg/dL (7-18); BUN/Creat Ratio 21.9 RATIO (10-20); Calcium,Total 9.1 mg/dL (8.5-10.1); Chloride 102 mmol/L (98-107); Creatinine, Serum 1.69 mg/dL (0.55-1.02); EST Glomerular Filtration Rate 31 mL/min (>60); Est Glom Filt Rate - Afr Amer 38 mL/min (>60); Estimated Creatinine Clearance 27.34 ml/min; Globulin 3.6 g/dL (2.2-4.2); Glucose 343 mg/dL (74-106); Lipase 154 U/L (73-393); Potassium 3.4 mmol/L (3.5-5.1); Protein, Total 7.1 g/dL (6.4-8.2); Sodium Level 135 mmol/L (136-145)
--- NOTE | 2021-01-08 23:49 | PCM.HP.STD ---
Problem List (1) Gastritis Status: Acute (2) Abdominal pain Status: Acute (3) Nausea and vomiting Status: Acute (4) Longstanding persistent atrial fibrillation Status: Chronic Comment: Convergent hybrid Lt Atrial Ablation 01/12/17 (5) Atherosclerosis of coronary artery of [place] heart without angina pectoris Status: Chronic (6) History of coronary artery stent placement Status: Resolved Comment: PCI-thrombectomy and BMS- Distal RCA w/ 3.0 x 16 mm Rebel Stent 04/07/19 (7) Sick sinus syndrome Status: Chronic (8) History of ST elevation myocardial infarction (STEMI) Status: Resolved (9) Secondary pulmonary arterial hypertension Status: Chronic (10) Essential (primary) hypertension Status: Chronic (11) Lung nodule Status: Chronic (12) LYN (obstructive sleep apnea) Status: Chronic (13) PAOD (peripheral arterial occlusive disease) Status: Chronic (14) Calciphylaxis Status: Chronic (15) Sarcoidosis Status: Chronic History of Present Illness Date of Admission: 01/08/21 Chief Complaint: nausea and vomiting The patient is a 75 year old F with a significant history of CAD status post stent; CKD stage III; obstructive sleep apnea; sarcoidosis; and rheumatoid arthritis who presents emergency department with nausea and vomiting that started about 4 hours prior to presentation. Her symptoms has been persistent so she came to the emergency department. Patient was given Phenergan by paramedics so patient was pretty drowsy at the emergency department. She reports abdominal pain that she attributes to not being allowed to go to the bathroom to defecate secondary to she been drowsy. She denies any fever or chills. She denies any diarrhea. Past Medical History Past Medical History (Chronic Problems): Chronic Problems (Last Reviewed 01/09/21 @ 00:[address] Jose Rivera MD) Longstanding persistent atrial fibrillation (Chronic) Convergent hybrid Lt Atrial Ablation 01/12/17 Atherosclerosis of coronary artery of [place] heart without angina pectoris (Chronic) Sick sinus syndrome (Chronic) Secondary pulmonary arterial hypertension (Chronic) Essential (primary) hypertension (Chronic) Lung nodule (Chronic) LYN (obstructive sleep apnea) (Chronic) PAOD (peripheral arterial occlusive disease) (Chronic) Calciphylaxis (Chronic) Sarcoidosis (Chronic) Medical History: Medical History (Last Reviewed 01/09/21 @ 01:[address] Jose Rivera MD) Longstanding persistent atrial fibrillation (Chronic) I48.11 Convergent hybrid Lt Atrial Ablation 01/12/17 Atherosclerosis of coronary artery of [place] heart without angina pectoris (Chronic) I25.10 Sick sinus syndrome (Chronic) I49.[address] elevation myocardial infarction (STEMI) (Resolved) Onset Date: 04/07/19 I25.2 Secondary pulmonary arterial hypertension (Chronic) I27.21 Essential (primary) hypertension (Chronic) I10 Lung nodule (Chronic) R91.1 LYN (obstructive sleep apnea) (Chronic) G47.33 PAOD (peripheral arterial occlusive disease) (Chronic) I77.9 Calciphylaxis (Chronic) E83.59 Sarcoidosis (Chronic) D86.9 Anemia D64.9 Chronic kidney disease, stage 3 N18.3 Depression F32.9 GERD (gastroesophageal reflux disease) K21.9 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 MRSA (methicillin resistant staph aureus) culture positive Z22.322 Spinal stenosis of lumbar region with radiculopathy M48.061, M54.16 Thyroid nodule E04.1 Type 2 diabetes mellitus E11.9 Ulcer of left lower extremity with fat layer exposed L97.922 Ulcer of right lower extremity with fat layer exposed L97.912 Venous insufficiency (chronic) (peripheral) I87.2 GI bleeding K92.[address] of chest (Inactive) R93.8 Venous stasis ulcer of left lower leg with edema of left lower leg (Inactive) I83.892, I83.028, R60.9 Venous stasis ulcer of right lower leg with edema of right lower leg (Inactive) I83.891, I83.018, R60.9 Allergies amlodipine besylate [From Norvasc] Allergy (Verified 01/08/21 20:12) Unknown ceftriaxone Allergy (Verified 01/08/21 20:12) Rash doxazosin [From Cardura] Allergy (Verified 01/08/21 20:12) Unknown doxazosin mesylate [From Cardura] Allergy (Verified 01/08/21 20:12) Other VEINS TURNED RED doxycycline Allergy (Verified 01/08/21 20:12) Unknown Pt doesn't remember enalapril maleate [From Vasotec] Allergy (Verified 01/08/21 20:12) Rash enalaprilat dihydrate [From Vasotec] Allergy (Verified 01/08/21 20:12) Rash hydroxyzine HCl [From Vistaril] Allergy (Verified 01/08/21 20:12) Rash hydroxyzine pamoate [From Vistaril] Allergy (Verified 01/08/21 20:12) Rash meperidine HCl [From Demerol] Allergy (Verified 01/08/21 20:12) Rash Sulfa (Sulfonamide Antibiotics) Allergy (Verified 01/08/21 20:12) Hives sulfamethoxazole [From Bactrim] Allergy (Verified 01/08/21 20:12) Hives trimethoprim [From Bactrim] Allergy (Verified 01/08/21 20:12) Hives losartan Adverse Reaction (Unknown, Verified 01/08/21 20:12) Unknown Home Medications: Ambulatory Orders Medication Instructions Recorded Aspirin E.C. [Ecotrin] 81 mg PO DAILY@0800 #30 tab 04/09/19 Atorvastatin Calcium [Lipitor] 40 mg PO QHS #30 tab 04/09/19 Furosemide 40 mg PO DAILY 04/30/20 potassium chloride 20 mEq 20 meq PO DAILY #90 tab 08/31/20 tablet,extended release Acetaminophen [Tylenol Tablet] 650 mg PO Q6H PRN PRN tab 09/23/20 pantoprazole 40 mg tablet,delayed 40 mg PO DAILY 30 Days #30 tab 11/19/20 release metoprolol tartrate 50 mg tablet 50 mg PO BID #180 tab 12/10/20 acarbose 25 mg tablet 25 mg PO TID tablet 12/17/20 prednisone 5 mg tablet 5 mg PO DAILY tablet 12/17/20 spironolactone 25 mg tablet 25 mg PO DAILY tablet 12/17/20 Surgical History: Surgical History (Last Reviewed 01/09/21 @ 00:[address] Jose Rivera MD) History of coronary artery stent placement (Resolved) Onset Date: 04/07/19 Z95.5 PCI-thrombectomy and BMS- Distal RCA w/ 3.0 x 16 mm Rebel Stent 04/07/19 History of cardiac radiofrequency ablation (RFA) Onset Date: 01/09/17 Z98.890 Convergent hybrid Lt Atrial Ablation 01/12/17 History of esophagogastroduodenoscopy (EGD) Onset Date: 09/2020 Z98.890 History of patent ductus arteriosus Z87.74 closure H/O skin graft (Inactive) Z98.890 08/01/[address] 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 Jose Rivera MD) Mother Diabetes Brother Diabetes Myocardial infarction Cancer Son Hypertension Daughter Arthritis Diabetes Hypertension Brother Cancer Paternal Family History: Family History (Last Reviewed 01/09/21 @ 00:[address] Jose Rivera MD) Mother Diabetes Brother Diabetes Myocardial infarction Cancer Son Hypertension Daughter Arthritis Diabetes Hypertension Brother Cancer Review of Systems Constitutional: Denies: Chills, Fever, Weight Change HEENT: Denies: Head Aches, Sinus Congestion, Sinus Drainage Cardiovascular: Denies: Chest Pain, Palpitations Respiratory: Denies: Cough, Shortness of breath at rest, Sputum production Gastrointestinal: Reports: Abdominal Pain, Nausea, Vomiting Genitourinary: Denies: Dysuria Musculoskeletal: Denies: Joint Pain, Joint Tenderness Skin: Denies: Rash, Wounds Neurological: Denies: Numbness, Tingling, Focal weakness Psychiatric: Denies: Anxiety, Depression, Homicidal Ideations, Suicidal Ideations Hematologic/ Lymphatic: Denies: Easy Bruising, Easy Bleeding VTE Information - Inpt Only VTE Present on Admission: No VTE Mechan Device Prophylaxis: None VTE Pharm Prophylaxis ordered?: Yes Patient Problems: Active and Suspected Problems (Last Reviewed 01/09/21 @ 00:[address] Jose Rivera MD) Abdominal pain (Acute) Nausea and vomiting (Acute) Gastritis (Acute) - Physical Exam Vitals/I&O's: Vital Signs Temp Pulse Resp BP Pulse Ox 97.2 F L 80 15 135/77 H 98 01/08/21 22:10 01/08/21 22:10 01/08/21 22:10 01/08/21 22:10 01/08/21 22:10 Oxygen Delivery Method Room Air Weight: 90.1 kg Body Mass Index (BMI) 32.1 Finger Stick Blood Glucose 124 Intake and Output for Last 24 Hours 01/06/21 01/07/21 01/08/21 23:59 23:59 23:59 Intake Total 500 / 500 Balance 500 / 500 General: Oriented x3, Cooperative, Lethargic HEENT: Atraumatic, PERRLA, EOMI, Normocephalic Neck: Supple, No JVD, Negative Carotid Bruits Lungs: No rhonchi, No wheeze, Rales Cardiovascular: Normal S1, Normal S2, No murmurs, Irregular Rate Abdomen: Bowel Sounds Present, Soft, Non Tender Extremities: Cool - Bilateral feet, Edema - Bilateral feet Skin: - - Varicose veins of bilateral feet Musculoskeletal: No Tenderness to Palpation of Joints or Extremities Neurological: Cranial nerves II-XII grossly intact Psych/Mental Status: Normal Affect, Appropriate Laboratory Results 01/08/21 20:23: WBC 12.2 H, RBC 5.29, Hgb 16.5 H, Hct 50.5 H, MCV 95.5, MCH 31.2, MCHC 32.7, RDW Std Deviation 55.4 H, RDW Coeff of Heike 15.8 H, Plt Count 127 L, MPV 12.5 H, Immature Gran % (Auto) 1.100 H, Neut % (Auto) 83.5 H, Lymph % (Auto) 9.4 L, [place] % (Auto) 5.7, Eos % (Auto) 0.1, Baso % (Auto) 0.2, Absolute Neuts (auto) 10.2 H, Absolute Lymphs (auto) 1.14, Nucleated RBC % 0 01/08/21 20:23: Sodium Cancelled, Potassium Cancelled, Chloride Cancelled, Carbon Dioxide Cancelled, Anion Gap Cancelled, BUN Cancelled, Creatinine Cancelled, Estim Creat Clear Calc Cancelled, Est GFR (MDRD) Af Amer Cancelled, Est GFR (MDRD) Non-Af Cancelled, BUN/Creatinine Ratio Cancelled, Glucose Cancelled, Calcium Cancelled, Total Bilirubin Cancelled, AST Cancelled, ALT Cancelled, Alkaline Phosphatase Cancelled, Total Protein Cancelled, Albumin Cancelled, Globulin Cancelled, Albumin/Globulin Ratio Cancelled, Lipase Cancelled 01/08/21 20:59: Sodium Cancelled, Potassium Cancelled, Chloride Cancelled, Carbon Dioxide Cancelled, Anion Gap Cancelled, BUN Cancelled, Creatinine Cancelled, Estim Creat Clear Calc Cancelled, Est GFR (MDRD) Af Amer Cancelled, Est GFR (MDRD) Non-Af Cancelled, BUN/Creatinine Ratio Cancelled, Glucose Cancelled, Calcium Cancelled, Total Bilirubin Cancelled, AST Cancelled, ALT Cancelled, Alkaline Phosphatase Cancelled, Total Protein Cancelled, Albumin Cancelled, Globulin Cancelled, Albumin/Globulin Ratio Cancelled, Lipase Cancelled 01/08/21 22:05: Urine Color Yellow, Urine Clarity Clear, Urine pH 6.0, Ur Specific [place] 1.015, Urine Protein 30 H, Urine Glucose (UA) 1000 H, Urine Ketones Negative, Urine Occult Blood 10 H, Urine Nitrite Negative, Urine Bilirubin Negative, Urine Urobilinogen Normal, Ur Leukocyte Esterase Negative, Urine RBC 0 SEEN, Urine WBC 0-5 SEEN, Ur Squamous Epith Cells 0 SEEN, Urine Bacteria 0 SEEN, Urine Mucus 0 SEEN 01/08/21 22:39: Sodium 135 L, Potassium 3.4 L, Chloride 102, Carbon Dioxide 24.0, Anion Gap 9, BUN 37 H, Creatinine 1.69 H, Estim Creat Clear Calc 27.34, Est GFR (MDRD) Af Amer 38 L, Est GFR (MDRD) Non-Af 31 L, BUN/Creatinine Ratio 21.9 H, Glucose 343 H, Calcium 9.1, Total Bilirubin 1.40 H, AST 39 H, ALT 63 H, Alkaline Phosphatase 77, Total Protein 7.1, Albumin 3.5, Globulin 3.6, Albumin/Globulin Ratio 1.0, Lipase 154 Assessment/Plan All Active Problems (Last Reviewed 01/09/21 @ 00:[address] Jose Rivera MD) Abdominal pain (Acute) Nausea and vomiting (Acute) Gastritis (Acute) History of coronary artery stent placement (Resolved 04/07/19) History of ST elevation myocardial infarction (STEMI) (Resolved 04/07/19) The patient is a 75 year old F with a significant history of CAD status post stent; CKD stage III; obstructive sleep apnea; sarcoidosis; and rheumatoid arthritis who presents emergency department with nausea and vomiting; and abdominal pain. Acute gastritis Received normal saline bolus at the emergency department. Hold home Lasix. Keep n.p.o. for now. As needed Zofran ordered Abnormal EKG EKG tracing reviewed with T wave inversions in V4 through V6. Old EKG reviewed. Present EKG appears to be slightly worse than previous. Troponin ordered emergency department. Trend troponin. Sarcoidosis/rheumatoid arthritis Prednisone continued A. fib Not on anticoagulation secondary to GI bleed. Hold metoprolol secondary to low normal blood pressures in the setting of nausea and vomiting. Heart failure with 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 Echocardiogram on 07/08/2019; segmental dysfunction with 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. Estimated ejection fraction 55%. Unable to assess diastolic dysfunction. Inferior basal hepatic hypokinesis right ventricle systolic pressure was 57. Left atrium is moderately enlarged. Right atrium is moderately enlarged. Metoprolol; Spironolactone and Lasix on hold secondary to nausea and vomiting. Dehydration Patient with elevated BUN above baseline; and erythrocytosis above baseline Given normal saline bolus at emergency department Hold spironolactone and Lasix Trend CMP. History of hypertension Hold blood pressures secondary to low normal blood pressures. Trend blood pressures. CKD stage IIIa Stable Trend CMP. Elevated liver enzymes AST elevated; chronic ALT elevated; above baseline Trend CMP. DVT prophylaxis Subcutaneous heparin OBSV E&M: [id number] Initial observation care L3
[2021-01-09] VITALS (12 sets, daily range): BP systolic 101–151; BP diastolic 47–91; PULSE 67–97; RESP 14–18; TEMP 36.2–36.8; O2SAT 93–98; BMI 34.9
[2021-01-09] MEDS: Insulin Lispro 100 UNIT/ML INSULN.PEN SC ×4 (01:26→19:06)
[2021-01-09 01:36] LABS: Bedside Glucose 297 mg/dL (70-110)
--- NOTE | 2021-01-09 01:44 | NURSING ---
Daughter Lisa called and gave her an update on her mothers condition. Afterwards spoke with pt and informed her that she had called and she said that she did not want her to be given any information. It is to be given only to her . On admission pt said that her and daughter were aloud to have info and now has changed her mind.
[2021-01-09 06:16] LABS: Bedside Glucose 213 mg/dL (70-110)
[2021-01-09] MEDS: Ondansetron 4 MG/2 ML Vial IV (06:58)
[2021-01-09 07:30] LABS: Absolute Lymphocyte Count 1.07 X10^3/uL (0.83-4.51); Absolute Neutrophil Count 11.4 X10^3/uL (2.0-7.7); Basophil# 0.02 X10^3/uL; Basophil% 0.1 % (0-1); Eosinophil# 0.01 X10^3/uL; Eosinophils% 0.1 % (0-5); Hematocrit 44.8 % (37-47); Lymphocyte # 1.07 X10^3/ul (0.83-4.51); Lymphocyte % 7.9 % (19-41); Mean Corp Hgb Conc 33.5 g/dL (32-36); Mean Corpuscular Volume 92.6 fL (81-99); Mean Platelet Vol. 12.3 fl (6.2-12.0); Monocyte# 0.96 X10^3/uL; Monocyte% 7.1 % (0-10); NRBC Flagged by Analyzer 0 % (0-5); Neutrophil # 11.36 X10^3/uL (2.7-7.7); Neutrophil % 83.9 % (47-70); POSITIVE COUNT YES; Platelet Count 98 K/mm3 (150-450); RBC Distribution Width CV 15.8 % (11.6-14.6); RBC Distribution Width SD 53.1 fl (35.1-43.9); Red Blood Count 4.84 M/mm3 (4.2-5.4); White Blood Count 13.5 K/mm3 (4.4-11.0)
[2021-01-09 08:02] LABS: ALB/GLOB Ratio 1.1 RATIO (0.9-2.4); AST(SGOT) 35 U/L (15-37); Alanine Aminotransfer ALT/SGPT 55 U/L (13-56); Albumin, Serum 3.2 g/dL (3.2-5.0); Alkaline Phosphatase 70 U/L (45-117); Anion Gap 10 (5-15); BUN 30 mg/dL (7-18); BUN/Creat Ratio 24.4 RATIO (10-20); Calcium,Total 9.1 mg/dL (8.5-10.1); Chloride 107 mmol/L (98-107); Creatinine, Serum 1.23 mg/dL (0.55-1.02); EST Glomerular Filtration Rate 45 mL/min (>60); Est Glom Filt Rate - Afr Amer 55 mL/min (>60); Estimated Creatinine Clearance 31.74 ml/min; Glucose 219 mg/dL (74-106); Potassium 4.6 mmol/L (3.5-5.1); Protein, Total 6.2 g/dL (6.4-8.2); Sodium Level 143 mmol/L (136-145)
[2021-01-09 08:18] LABS: Differential Indicated SCAN CRITERIA MET
[2021-01-09 08:34] LABS: Differential Comment SCANNED; Platelet Estimate SLT DEC (ADEQ); Platelet Morphology LARGE
[2021-01-09] MEDS: Heparin Injection (Vial) 5,000 UNIT/ML VIAL 5000 UNIT SC ×2 (10:15→23:27)
[2021-01-09] MEDS: Pantoprazole Sodium 40 MG Tablet PO (10:15)
[2021-01-09] MEDS: 0.9% Normal Saline 1,000 ML 75 ML IV ×2 (10:15→23:41)
[2021-01-09] MEDS: 0.9% Saline Lock 10 ML Syringe IV ×3 (10:15→23:31)
--- NOTE | 2021-01-09 11:01 | PCM.PN.HOSP ---
Patient Problems: Active and Suspected Problems (Last Reviewed 01/09/21 @ 01:[address] Jose Rivera MD) Abdominal pain (Acute) Nausea and vomiting (Acute) Gastritis (Acute) Subjective: Remains nauseated and has had episodes of emesis during her hospitalization. She has some abdominal discomfort but she also had a BM prior to coming into the hospital, and abdomen pelvis CT did not demonstrate an obstruction or acute process. Vitals/I&O's: Vital Signs Temp Pulse Resp BP Pulse Ox 98 F 97 16 125/71 H 94 01/09/21 06:53 01/09/21 06:53 01/09/21 06:53 01/09/21 06:53 01/09/21 06:53 Oxygen Delivery Method Room Air Weight: 190 lb 11.198 oz Body Mass Index (BMI) 34.9 Finger Stick Blood Glucose 124 Intake and Output for Last 24 Hours 01/07/21 01/08/21 01/09/21 23:59 23:59 23:59 Intake Total 500 / 500 Output Total 250 / 250 Balance 500 / 500 -250 / -250 General: Alert, Oriented x3, Cooperative, No apparent distress HEENT: Atraumatic, PERRLA, EOMI, Normocephalic Oral: Dry Mucosa Neck: Supple, No JVD Lungs: Clear to auscultation, Normal air movement, No rhonchi, No wheeze, No rales Cardiovascular: Regular rate, Regular Rhythm, Normal S1, Normal S2, No murmurs Abdomen: Soft, Non Tender, Non-Distended, No Hepato-splenomegaly Extremities: Capillary Refill Less than 3 Seconds, Edema - Trace bilaterally Skin: No rashes, No breakdown Neurological: Neuro grossly intact, Sensory exam intact to light touch and pain Psych/Mental Status: Normal Affect, Appropriate Laboratory Results 01/08/21 20:23: WBC 12.2 H, RBC 5.29, Hgb 16.5 H, Hct 50.5 H, MCV 95.5, MCH 31.2, MCHC 32.7, RDW Std Deviation 55.4 H, RDW Coeff of Heike 15.8 H, Plt Count 127 L, MPV 12.5 H, Immature Gran % (Auto) 1.100 H, Neut % (Auto) 83.5 H, Lymph % (Auto) 9.4 L, [place] % (Auto) 5.7, Eos % (Auto) 0.1, Baso % (Auto) 0.2, Absolute Neuts (auto) 10.2 H, Absolute Lymphs (auto) 1.14, Nucleated RBC % 0 01/08/21 20:23: Sodium Cancelled, Potassium Cancelled, Chloride Cancelled, Carbon Dioxide Cancelled, Anion Gap Cancelled, BUN Cancelled, Creatinine Cancelled, Estim Creat Clear Calc Cancelled, Est GFR (MDRD) Af Amer Cancelled, Est GFR (MDRD) Non-Af Cancelled, BUN/Creatinine Ratio Cancelled, Glucose Cancelled, Calcium Cancelled, Total Bilirubin Cancelled, AST Cancelled, ALT Cancelled, Alkaline Phosphatase Cancelled, Total Protein Cancelled, Albumin Cancelled, Globulin Cancelled, Albumin/Globulin Ratio Cancelled, Lipase Cancelled 01/08/21 20:59: Sodium Cancelled, Potassium Cancelled, Chloride Cancelled, Carbon Dioxide Cancelled, Anion Gap Cancelled, BUN Cancelled, Creatinine Cancelled, Estim Creat Clear Calc Cancelled, Est GFR (MDRD) Af Amer Cancelled, Est GFR (MDRD) Non-Af Cancelled, BUN/Creatinine Ratio Cancelled, Glucose Cancelled, Calcium Cancelled, Total Bilirubin Cancelled, AST Cancelled, ALT Cancelled, Alkaline Phosphatase Cancelled, Total Protein Cancelled, Albumin Cancelled, Globulin Cancelled, Albumin/Globulin Ratio Cancelled, Lipase Cancelled 01/08/21 22:05: Urine Color Yellow, Urine Clarity Clear, Urine pH 6.0, Ur Specific [place] 1.015, Urine Protein 30 H, Urine Glucose (UA) 1000 H, Urine Ketones Negative, Urine Occult Blood 10 H, Urine Nitrite Negative, Urine Bilirubin Negative, Urine Urobilinogen Normal, Ur Leukocyte Esterase Negative, Urine RBC 0 SEEN, Urine WBC 0-5 SEEN, Ur Squamous Epith Cells 0 SEEN, Urine Bacteria 0 SEEN, Urine Mucus 0 SEEN 01/08/21 22:39: Sodium 135 L, Potassium 3.4 L, Chloride 102, Carbon Dioxide 24.0, Anion Gap 9, BUN 37 H, Creatinine 1.69 H, Estim Creat Clear Calc 27.34, Est GFR (MDRD) Af Amer 38 L, Est GFR (MDRD) Non-Af 31 L, BUN/Creatinine Ratio 21.9 H, Glucose 343 H, Calcium 9.1, Total Bilirubin 1.40 H, AST 39 H, ALT 63 H, Alkaline Phosphatase 77, Total Protein 7.1, Albumin 3.5, Globulin 3.6, Albumin/Globulin Ratio 1.0, Lipase 154 01/08/21 22:39: Troponin I < 0.015 01/09/21 01:24: POC Glucose 297 H 01/09/21 05:00: Troponin I 0.021 01/09/21 06:07: POC Glucose 213 H 01/09/21 07:15: WBC 13.5 H, RBC 4.84, Hgb 15.0, Hct 44.8, MCV 92.6, MCH 31.0, MCHC 33.5, RDW Std Deviation 53.1 H, RDW Coeff of Heike 15.8 H, Plt Count 98 L, MPV 12.3 H, Immature Gran % (Auto) 0.900, Neut % (Auto) 83.9 H, Lymph % (Auto) 7.9 L, [place] % (Auto) 7.1, Eos % (Auto) 0.1, Baso % (Auto) 0.1, Absolute Neuts (auto) 11.4 H, Absolute Lymphs (auto) 1.07, Nucleated RBC % 0, Differential Comment SCANNED, Platelet Estimate SLT DEC, Plt Morphology Comment LARGE 01/09/21 07:15: Sodium 143, Potassium 4.6, Chloride 107, Carbon Dioxide 26.0, Anion Gap 10, BUN 30 H, Creatinine 1.23 H, Estim Creat Clear Calc 31.74, Est GFR (MDRD) Af Amer 55 L, Est GFR (MDRD) Non-Af 45 L, BUN/Creatinine Ratio 24.4 H, Glucose 219 H, Calcium 9.1, Total Bilirubin 2.00 H, AST 35, ALT 55, Alkaline Phosphatase 70, Total Protein 6.2 L, Albumin 3.2, Globulin 3.0, Albumin/Globulin Ratio 1.1 Current Medications Acetaminophen (Acetaminophen 325 Mg Tablet) 650 mg PO Q6H PRN PRN PRN Reason: Pain Score 1-10/Temp > 100.7 F Aspirin (Aspirin E.C. 81 Mg Tablet) 81 mg PO DAILY@0800 [facility] Last Admin: 01/09/21 08:00 Dose: Not Given Documented by: Atorvastatin Calcium (Atorvastatin Calcium 40 Mg Tablet) 40 mg PO QHS [facility] Dextrose (Dextrose 50%-Water 25 Gm/50 Ml Disp.Syrin) 0 gm IV X1 PRN; Protocol PRN Reason: Hypoglycemia Glucagon (Glucagon 1 Mg/Ml Syringe) 1 mg IM .X1 PRN PRN Reason: Hypoglycemia Heparin Sodium (Porcine) (Heparin Injection (Vial) 5,000 Unit/Ml Vial) 5,000 unit SC Q12 [facility] Last Admin: 01/09/21 10:15 Dose: 5,000 unit Documented by: Sodium Chloride () 1,000 mls @ 75 mls/hr IV .[id number] [facility] Last Admin: 01/09/21 10:15 Dose: 75 mls/hr Documented by: Insulin Glargine (Insulin Glargine 100 Units/Ml Pen) 10 units SC DAILY [facility] Last Admin: 01/09/21 10:15 Dose: 10 u Documented by: Insulin Human Lispro (Insulin Lispro 100 Unit/Ml Insuln.Pen) 0 unit SC Q6 [facility]; Protocol Last Admin: 01/09/21 06:09 Dose: 2 units Documented by: Melatonin (Melatonin 3 Mg Tablet) 3 mg PO QHS PRN PRN PRN Reason: INSOMNIA Nutritional Formula (Lactose Free) (Glucerna Shake 120 Ml Liquid) 120 ml PO 4X/DAY [facility] Ondansetron HCl (Ondansetron 4 Mg/2 Ml Vial) 8 mg IV Q8H PRN PRN PRN Reason: NAUSEA/VOMITING Pantoprazole Sodium (Pantoprazole Sodium 40 Mg Tablet) 40 mg PO DAILY [facility] Last Admin: 01/09/21 10:15 Dose: 40 mg Documented by: Potassium Chloride (Potassium Chloride Oral Tablet 20 Meq) [facility] Last Admin: 01/09/21 08:00 Dose: Not Given Documented by: Prednisone (Prednisone 5 Mg Tablet) [facility] Last Admin: 01/09/21 08:00 Dose: Not Given Documented by: Senna/Docusate Sodium (Senna/Docusate Sodium 1 Tablet) 2 tablet PO BID PRN PRN PRN Reason: Constipation Sodium Chloride (0.9% Saline Lock 10 Ml Syringe) 10 - 40 ml IV UD PRN PRN Reason: SALINE FLUSH Last Admin: 01/09/21 10:15 Dose: 10 ml Documented by: Medical Necessity - Tobacco Use Smoking Status: Never smoker Assessment/Plan All Active Problems (Last Reviewed 01/09/21 @ 01:[address] Jose Rivera MD) Abdominal pain (Acute) Nausea and vomiting (Acute) Gastritis (Acute) History of coronary artery stent placement (Resolved 04/07/19) History of ST elevation myocardial infarction (STEMI) (Resolved 04/07/19) 1. Acute gastroenteritis/ROLF on CKD 3a/chronically elevated LFTs -Continue with n.p.o. status as she is continued to have active vomiting, continue with Zofran -We will continue to hold her home Lasix secondary to her ROLF -Place her on a low-dose IV fluids to maintain hydration -Continue to monitor renal function -Continue to monitor liver function 2. Abnormal EKG/A. fib/chronic diastolic CHF/HTN/HLD -We will be very cautious with her IV fluid secondary to her history of heart failure -She had an echo in 2019 with segmental dysfunction and normal EF of 55%. -Continue to hold her metoprolol secondary to borderline blood pressures and hold her Aldactone and Lasix secondary to her ROLF -She is not on any anticoagulation secondary to history of GI bleeding -Continue with Lipitor 3. Sarcoidosis/rheumatoid arthritis -Stable -Continue with her prednisone 4. GERD -Stable -Continue with PPI VTE: Heparin OBSV E&M: [id number] Subsequent observation care L2
[2021-01-09 12:06] LABS: Bedside Glucose 176 mg/dL (70-110)
[2021-01-09] MEDS: Ondansetron 4 MG/2 ML Vial 8 MG IV ×2 (15:18→23:31)
[2021-01-09] MEDS: Acetaminophen 325 MG Tablet 650 MG PO ×2 (15:21→23:31)
[2021-01-09 19:11] LABS: Bedside Glucose 176 mg/dL (70-110)
[2021-01-09 23:56] LABS: Bedside Glucose 138 mg/dL (70-110)
[2021-01-10] VITALS (10 sets, daily range): BP systolic 147–154; BP diastolic 66–99; PULSE 61–99; RESP 16–18; TEMP 36.1–36.6; O2SAT 94–98
[2021-01-10] MEDS: Meclizine HCl 25 MG Tablet PO ×4 (01:23→23:22)
[2021-01-10] MEDS: Acetaminophen 325 MG Tablet 650 MG PO ×2 (05:44→15:23)
[2021-01-10 06:46] LABS: Bedside Glucose 86 mg/dL (70-110)
[2021-01-10 07:47] LABS: Absolute Lymphocyte Count 1.19 X10^3/uL (0.83-4.51); Absolute Neutrophil Count 10.4 X10^3/uL (2.0-7.7); Basophil# 0.03 X10^3/uL; Basophil% 0.2 % (0-1); Eosinophil# 0.05 X10^3/uL; Eosinophils% 0.4 % (0-5); Hematocrit 48.1 % (37-47); Hemoglobin 15.3 g/dL (12.0-15.0); Lymphocyte # 1.19 X10^3/ul (0.83-4.51); Lymphocyte % 9.3 % (19-41); Mean Corp Hgb Conc 31.8 g/dL (32-36); Mean Corpuscular Hgb 30.9 pg (27.0-32.0); Mean Corpuscular Volume 97.2 fL (81-99); Mean Platelet Vol. 11.3 fl (6.2-12.0); Monocyte# 1.05 X10^3/uL; Monocyte% 8.2 % (0-10); NRBC Flagged by Analyzer 0 % (0-5); Neutrophil % 81.2 % (47-70); Platelet Count 108 K/mm3 (150-450); RBC Distribution Width CV 15.9 % (11.6-14.6); RBC Distribution Width SD 57.2 fl (35.1-43.9); Red Blood Count 4.95 M/mm3 (4.2-5.4); White Blood Count 12.8 K/mm3 (4.4-11.0)
[2021-01-10 08:16] LABS: Anion Gap 5 (5-15); BUN 22 mg/dL (7-18); BUN/Creat Ratio 17.9 RATIO (10-20); Calcium,Total 9.1 mg/dL (8.5-10.1); Chloride 107 mmol/L (98-107); Creatinine, Serum 1.23 mg/dL (0.55-1.02); EST Glomerular Filtration Rate 45 mL/min (>60); Est Glom Filt Rate - Afr Amer 55 mL/min (>60); Estimated Creatinine Clearance 31.74 ml/min; Glucose 128 mg/dL (74-106); Potassium 3.6 mmol/L (3.5-5.1); Sodium Level 141 mmol/L (136-145)
[2021-01-10] MEDS: Ondansetron 4 MG/2 ML Vial 8 MG IV (09:23)
--- NOTE | 2021-01-10 09:42 | NURSING ---
This nurse gave zofran Iv 10min prior to working with therapy. See Therapy notes for their findings. Pt did not want to get up to edge of bed for feel of vomiting b/c she was nauseated. Pt complains of GALICIA 5/10 despite having tylenol this morning. Flat affect.
[2021-01-10] MEDS: Pantoprazole Sodium 40 MG Tablet PO (09:46)
[2021-01-10] MEDS: predniSONE 5 MG Tablet PO (09:46)
[2021-01-10] MEDS: Aspirin E.C. 81 MG Tablet PO (09:46)
[2021-01-10] MEDS: Potassium Chloride Oral Tablet 20 MEQ PO (09:46)
[2021-01-10] MEDS: Heparin Injection (Vial) 5,000 UNIT/ML VIAL 5000 UNIT SC ×2 (09:47→23:22)
--- NOTE | 2021-01-10 11:01 | PN_ITS ---
Patient Problems: Active and Suspected Problems (Last Reviewed 01/09/21 @ 01:[address] Jose Rivera MD) Abdominal pain (Acute) Nausea and vomiting (Acute) Gastritis (Acute) Subjective: Still with some nausea but no significant emesis overnight. She also was having some dizziness and was started on meclizine. Vitals/I&O's: Vital Signs Temp Pulse Resp BP Pulse Ox 97.1 F L 91 18 148/99 H 98 01/10/21 09:28 01/10/21 09:28 01/10/21 09:28 01/10/21 09:28 01/10/21 09:28 Oxygen Delivery Method Room Air Weight: 190 lb 11.198 oz Body Mass Index (BMI) 34.9 Finger Stick Blood Glucose 124 Intake and Output for Last 24 Hours 01/08/21 01/09/21 01/10/21 23:59 23:59 23:59 Intake Total 500 / 500 1100 / 1100 100 / 100 Output Total 600 / 600 300 / 300 Balance 500 / 500 500 / 500 -200 / -200 General: Alert, Oriented x3, Cooperative, No apparent distress HEENT: Atraumatic, PERRLA, EOMI, Normocephalic Oral: Dry Mucosa Neck: Supple, No JVD Lungs: Clear to auscultation, Normal air movement, No rhonchi, No wheeze, No rales Cardiovascular: Regular rate, Regular Rhythm, Normal S1, Normal S2, No murmurs Abdomen: Soft, Non Tender, Non-Distended, No Hepato-splenomegaly Extremities: Capillary Refill Less than 3 Seconds, Edema - Trace bilaterally Skin: No rashes, No breakdown Neurological: Neuro grossly intact, Sensory exam intact to light touch and pain Psych/Mental Status: Normal Affect, Appropriate Laboratory Results 01/09/21 12:00: POC Glucose 176 H 01/09/21 19:04: POC Glucose 176 H 01/09/21 23:45: POC Glucose 138 H 01/10/21 05:38: POC Glucose 86 01/10/21 06:52: Sodium Cancelled, Potassium Cancelled, Chloride Cancelled, Carbon Dioxide Cancelled, Anion Gap Cancelled, BUN Cancelled, Creatinine Cancelled, Estim Creat Clear Calc Cancelled, Est GFR (MDRD) Af Amer Cancelled, Est GFR (MDRD) Non-Af Cancelled, BUN/Creatinine Ratio Cancelled, Glucose Cancelled, Calcium Cancelled 01/10/21 07:32: WBC 12.8 H, RBC 4.95, Hgb 15.3 H, Hct 48.1 H, MCV 97.2, MCH 30.9, MCHC 31.8 L D, RDW Std Deviation 57.2 H, RDW Coeff of Heike 15.9 H, Plt Count 108 L, MPV 11.3, Immature Gran % (Auto) 0.700, Neut % (Auto) 81.2 H, Lymph % (Auto) 9.3 L, [place] % (Auto) 8.2, Eos % (Auto) 0.4, Baso % (Auto) 0.2, Absolute Neuts (auto) 10.4 H, Absolute Lymphs (auto) 1.19, Nucleated RBC % 0 01/10/21 07:32: Sodium 141, Potassium 3.6, Chloride 107, Carbon Dioxide 29.0, Anion Gap 5, BUN 22 H, Creatinine 1.23 H, Estim Creat Clear Calc 31.74, Est GFR (MDRD) Af Amer 55 L, Est GFR (MDRD) Non-Af 45 L, BUN/Creatinine Ratio 17.9, Glucose 128 H, Calcium 9.1 Current Medications Acetaminophen (Acetaminophen 325 Mg Tablet) 650 mg PO Q6H PRN PRN PRN Reason: Pain Score 1-10/Temp > 100.7 F Last Admin: 01/10/21 05:44 Dose: 650 mg Documented by: Aspirin (Aspirin E.C. 81 Mg Tablet) 81 mg PO DAILY@0800 [facility] Last Admin: 01/10/21 09:46 Dose: 81 mg Documented by: Atorvastatin Calcium (Atorvastatin Calcium 40 Mg Tablet) 40 mg PO QHS [facility] Last Admin: 01/09/21 23:40 Dose: Not Given Documented by: Dextrose (Dextrose 50%-Water 25 Gm/50 Ml Disp.Syrin) 0 gm IV X1 PRN; Protocol PRN Reason: Hypoglycemia Glucagon (Glucagon 1 Mg/Ml Syringe) 1 mg IM .X1 PRN PRN Reason: Hypoglycemia Heparin Sodium (Porcine) (Heparin Injection (Vial) 5,000 Unit/Ml Vial) 5,000 unit SC Q12 [facility] Last Admin: 01/10/21 09:47 Dose: 5,000 unit Documented by: Sodium Chloride () 1,000 mls @ 75 mls/hr IV .[id number] [facility] Last Admin: 01/09/21 23:41 Dose: 75 mls/hr Documented by: Insulin Human Lispro (Insulin Lispro 100 Unit/Ml Insuln.Pen) 0 unit SC Q6 [facility]; Protocol Last Admin: 01/10/21 05:40 Dose: Not Given Documented by: Meclizine HCl (Meclizine Hcl 25 Mg Tablet) 25 mg PO TID [facility] Last Admin: 01/10/21 05:42 Dose: 25 mg Documented by: Melatonin (Melatonin 3 Mg Tablet) 3 mg PO QHS PRN PRN PRN Reason: INSOMNIA Ondansetron HCl (Ondansetron 4 Mg/2 Ml Vial) 8 mg IV Q8H PRN PRN PRN Reason: NAUSEA/VOMITING Last Admin: 01/10/21 09:23 Dose: 8 mg Documented by: Pantoprazole Sodium (Pantoprazole Sodium 40 Mg Tablet) 40 mg PO DAILY [facility] Last Admin: 01/10/21 09:46 Dose: 40 mg Documented by: Potassium Chloride (Potassium Chloride Oral Tablet 20 Meq) [facility] Last Admin: 01/10/21 09:46 Dose: 20 meq Documented by: Prednisone (Pred[facility]one 5 Mg Tablet) [facility] Last Admin: 01/10/21 09:46 Dose: 5 mg Documented by: Senna/Docusate Sodium (Senna/Docusate Sodium 1 Tablet) 2 tablet PO BID PRN PRN PRN Reason: Constipation Sodium Chloride (0.9% Saline Lock 10 Ml Syringe) 10 - 40 ml IV UD PRN PRN Reason: SALINE FLUSH Last Admin: 01/09/21 23:31 Dose: 10 ml Documented by: STROKE Vital Signs/Narrative: Vital Signs Temp Pulse Resp BP Pulse Ox 01/10/21 09:28 97.1 F L 91 18 148/99 H 98 Medical Necessity - Tobacco Use Smoking Status: Never smoker Assessment/Plan All Active Problems (Last Reviewed 01/09/21 @ 01:[address] Jose Rivera MD) Abdominal pain (Acute) Nausea and vomiting (Acute) Gastritis (Acute) History of coronary artery stent placement (Resolved 04/07/19) History of ST elevation myocardial infarction (STEMI) (Resolved 04/07/19) 1. Acute gastroenteritis/ROLF on CKD 3a/chronically elevated LFTs -Continue with n.p.o. status as she is continued to have active vomiting, continue with Zofran and continue with meclizine -She did have an EGD done a few months ago which did show prepyloric ulcer as well as gastritis can also add Carafate and see if this helps with her nausea -We will continue to hold her home Lasix secondary to her ROLF -Place her on a low-dose IV fluids to maintain hydration -Continue to monitor renal function -Continue to monitor liver function 2. Abnormal EKG/A. fib/chronic diastolic CHF/HTN/HLD -We will be very cautious with her IV fluid secondary to her history of heart failure -She had an echo in 2019 with segmental dysfunction and normal EF of 55%. -Continue to hold her metoprolol secondary to borderline blood pressures and hold her Aldactone and Lasix secondary to her ROLF -She is not on any anticoagulation secondary to history of GI bleeding -Continue with Lipitor 3. Sarcoidosis/rheumatoid arthritis -Stable -Continue with her prednisone 4. GERD -Stable -Continue with PPI VTE: Heparin OBSV E&M: [id number] Subsequent observation care L2
[2021-01-10 12:11] LABS: Bedside Glucose 107 mg/dL (70-110)
--- NOTE | 2021-01-10 12:14 | NURSING ---
Continues to have low urine output. Pt bladder scanned for 456ml. Dr. Cain aware and also aware she had crackles in abner bases.
[2021-01-10] MEDS: 0.9% Normal Saline 1,000 ML 75 ML IV (12:40)
[2021-01-10] MEDS: Sucralfate 1 GM Tablet PO ×2 (14:54→23:30)
--- NOTE | 2021-01-10 15:07 | NURSING ---
Order to ST. Cath pt x1. obtained 600cc of foul, strong cloudy, concentrated, tea colored urine. Purewhick taken out at this time.
[2021-01-10 21:56] LABS: Bedside Glucose 125 mg/dL (70-110)
[2021-01-10] MEDS: Atorvastatin Calcium 40 MG Tablet PO (23:22)
[2021-01-11] VITALS (14 sets, daily range): BP systolic 111–155; BP diastolic 69–91; PULSE 64–162; RESP 16–18; TEMP 36.4–36.5; O2SAT 94–97
[2021-01-11 00:06] LABS: Bedside Glucose 80 mg/dL (70-110)
[2021-01-11] MEDS: 0.9% Normal Saline 1,000 ML 75 ML IV ×2 (01:17→14:36)
[2021-01-11] MEDS: Acetaminophen 325 MG Tablet 650 MG PO ×2 (04:07→18:38)
[2021-01-11] MEDS: Sucralfate 1 GM Tablet PO ×4 (06:18→20:52)
[2021-01-11 06:45] LABS: Bedside Glucose 105 mg/dL (70-110)
[2021-01-11 06:57] LABS: Absolute Lymphocyte Count 1.09 X10^3/uL (0.83-4.51); Basophil# 0.04 X10^3/uL; Basophil% 0.4 % (0-1); Eosinophil# 0.07 X10^3/uL; Eosinophils% 0.6 % (0-5); Hematocrit 49.8 % (37-47); Hemoglobin 15.3 g/dL (12.0-15.0); Lymphocyte # 1.09 X10^3/ul (0.83-4.51); Lymphocyte % 9.6 % (19-41); Mean Corp Hgb Conc 30.7 g/dL (32-36); Mean Corpuscular Hgb 31.5 pg (27.0-32.0); Mean Corpuscular Volume 102.7 fL (81-99); Mean Platelet Vol. 11.5 fl (6.2-12.0); Monocyte# 0.99 X10^3/uL; Monocyte% 8.8 % (0-10); NRBC Flagged by Analyzer 0 % (0-5); Neutrophil % 79.6 % (47-70); POSITIVE COUNT YES; Platelet Count 82 K/mm3 (150-450); RBC Distribution Width CV 15.9 % (11.6-14.6); RBC Distribution Width SD 60.6 fl (35.1-43.9); Red Blood Count 4.85 M/mm3 (4.2-5.4); White Blood Count 11.3 K/mm3 (4.4-11.0)
[2021-01-11 07:05] LABS: Differential Indicated SCAN CRITERIA MET
[2021-01-11 07:33] LABS: ALB/GLOB Ratio 0.6 RATIO (0.9-2.4); AST(SGOT) 28 U/L (15-37); Alanine Aminotransfer ALT/SGPT 37 U/L (13-56); Albumin, Serum 2.2 g/dL (3.2-5.0); Alkaline Phosphatase 59 U/L (45-117); Anion Gap 5 (5-15); BUN 18 mg/dL (7-18); BUN/Creat Ratio 17.6 RATIO (10-20); Calcium,Total 8.6 mg/dL (8.5-10.1); Chloride 110 mmol/L (98-107); Creatinine, Serum 1.02 mg/dL (0.55-1.02); EST Glomerular Filtration Rate 56 mL/min (>60); Est Glom Filt Rate - Afr Amer 68 mL/min (>60); Estimated Creatinine Clearance 38.27 ml/min; Globulin 3.9 g/dL (2.2-4.2); Glucose 111 mg/dL (74-106); Potassium 4.2 mmol/L (3.5-5.1); Protein, Total 6.1 g/dL (6.4-8.2); Sodium Level 136 mmol/L (136-145)
--- NOTE | 2021-01-11 08:12 | PCM.PN.HOSP ---
Patient Problems: Active and Suspected Problems (Last Reviewed 01/09/21 @ 01:[address] Jose Rivera MD) Abdominal pain (Acute) Nausea and vomiting (Acute) Gastritis (Acute) Reason for Visit: Acute vertigo and nausea Subjective: Patient is a 75-year-old lady admitted with abdominal discomfort with associated persistent nausea patient also complains of vertigo Objective: GENERAL: Ill-looking HEENT: Atraumatic; EYES; Anicteric, Normal Conjunctiva NECK; supple, normal thyroid, RESPIRATORY: Diminished to auscultation CARDIOVASCULAR: Regular S1 S2, GI: soft, normoactive bowel sounds, : No Renal angle tenderness; EXTREMITIES: Lower extremities and right upper extremity MUSCULOSKELETAL: no muscle waisting NEURO: Awake; no lateralizing signs. SKIN: No Rash PSYCH; Flat affect Vitals/I&O's: Vital Signs Temp Pulse Resp BP Pulse Ox 97.6 F L 94 18 155/91 H 97 01/11/21 04:11 01/11/21 07:00 01/11/21 04:11 01/11/21 04:11 01/11/21 04:11 Oxygen Delivery Method Room Air Weight: 86.5 kg Body Mass Index (BMI) 34.9 Finger Stick Blood Glucose 124 Intake and Output for Last 24 Hours 01/09/21 01/10/21 01/11/21 23:59 23:59 23:59 Intake Total 1100 / 1100 1123.75 / 1123.75 1196.25 / 1196.25 Output Total 600 / 600 900 / 900 150 / 150 Balance 500 / 500 223.75 / 223.75 1046.25 / 1046.25 Laboratory Results 01/10/21 07:32: WBC 12.8 H, RBC 4.95, Hgb 15.3 H, Hct 48.1 H, MCV 97.2, MCH 30.9, MCHC 31.8 L D, RDW Std Deviation 57.2 H, RDW Coeff of Heike 15.9 H, Plt Count 108 L, MPV 11.3, Immature Gran % (Auto) 0.700, Neut % (Auto) 81.2 H, Lymph % (Auto) 9.3 L, [place] % (Auto) 8.2, Eos % (Auto) 0.4, Baso % (Auto) 0.2, Absolute Neuts (auto) 10.4 H, Absolute Lymphs (auto) 1.19, Nucleated RBC % 0 01/10/21 07:32: Sodium 141, Potassium 3.6, Chloride 107, Carbon Dioxide 29.0, Anion Gap 5, BUN 22 H, Creatinine 1.23 H, Estim Creat Clear Calc 31.74, Est GFR (MDRD) Af Amer 55 L, Est GFR (MDRD) Non-Af 45 L, BUN/Creatinine Ratio 17.9, Glucose 128 H, Calcium 9.1 01/10/21 12:03: POC Glucose 107 01/10/21 17:46: POC Glucose 125 H 01/10/21 23:26: POC Glucose 80 01/11/21 06:16: WBC 11.3 H, RBC 4.85, Hgb 15.3 H, Hct 49.8 H, MCV 102.7 H D, MCH 31.5, MCHC 30.7 L, RDW Std Deviation 60.6 H, RDW Coeff of Heike 15.9 H, Plt Count 82 L, MPV 11.5, Immature Gran % (Auto) 1.000 H, Neut % (Auto) 79.6 H, Lymph % (Auto) 9.6 L, [place] % (Auto) 8.8, Eos % (Auto) 0.6, Baso % (Auto) 0.4, Absolute Neuts (auto) 9.0 H, Absolute Lymphs (auto) 1.09, Nucleated RBC % 0 01/11/21 06:16: Sodium 136, Potassium 4.2, Chloride 110 H, Carbon Dioxide 21.0, Anion Gap 5, BUN 18, Creatinine 1.02, Estim Creat Clear Calc 38.27, Est GFR (MDRD) Af Amer 68, Est GFR (MDRD) Non-Af 56 L, BUN/Creatinine Ratio 17.6, Glucose 111 H, Calcium 8.6, Total Bilirubin 2.50 H, AST 28, ALT 37, Alkaline Phosphatase 59, Total Protein 6.1 L, Albumin 2.2 L, Globulin 3.9, Albumin/Globulin Ratio 0.6 L 01/11/21 06:21: POC Glucose 105 Current Medications Acetaminophen (Acetaminophen 325 Mg Tablet) 650 mg PO Q6H PRN PRN PRN Reason: Pain Score 1-10/Temp > 100.7 F Last Admin: 01/11/21 04:07 Dose: 650 mg Documented by: Aspirin (Aspirin E.C. 81 Mg Tablet) 81 mg PO DAILY@0800 [facility] Last Admin: 01/10/21 09:46 Dose: 81 mg Documented by: Atorvastatin Calcium (Atorvastatin Calcium 40 Mg Tablet) 40 mg PO QHS [facility] Last Admin: 01/10/21 23:22 Dose: 40 mg Documented by: Dextrose (Dextrose 50%-Water 25 Gm/50 Ml Disp.Syrin) 0 gm IV X1 PRN; Protocol PRN Reason: Hypoglycemia Glucagon (Glucagon 1 Mg/Ml Syringe) 1 mg IM .X1 PRN PRN Reason: Hypoglycemia Heparin Sodium (Porcine) (Heparin Injection (Vial) 5,000 Unit/Ml Vial) 5,000 unit SC Q12 [facility] Last Admin: 01/10/21 23:22 Dose: 5,000 unit Documented by: Sodium Chloride () 1,000 mls @ 75 mls/hr IV .[id number] [facility] Last Admin: 01/11/21 01:17 Dose: 75 mls/hr Documented by: Insulin Human Lispro (Insulin Lispro 100 Unit/Ml Insuln.Pen) 0 unit SC Q6 [facility]; Protocol Last Admin: 01/11/21 06:27 Dose: Not Given Documented by: Meclizine HCl (Meclizine Hcl 25 Mg Tablet) 25 mg PO TID [facility] Last Admin: 01/10/21 23:22 Dose: 25 mg Documented by: Melatonin (Melatonin 3 Mg Tablet) 3 mg PO QHS PRN PRN PRN Reason: INSOMNIA Ondansetron HCl (Ondansetron 4 Mg/2 Ml Vial) 8 mg IV Q8H PRN PRN PRN Reason: NAUSEA/VOMITING Last Admin: 01/10/21 09:23 Dose: 8 mg Documented by: Pantoprazole Sodium (Pantoprazole Sodium 40 Mg Tablet) 40 mg PO DAILY [facility] Last Admin: 01/10/21 09:46 Dose: 40 mg Documented by: Potassium Chloride (Potassium Chloride Oral Tablet 20 Meq) [facility] Last Admin: 01/10/21 09:46 Dose: 20 meq Documented by: Prednisone (Pred[facility]one 5 Mg Tablet) [facility] Last Admin: 01/10/21 09:46 Dose: 5 mg Documented by: Promethazine HCl (Promethazine 25 Mg Tablet) 12.5 mg PO Q6H PRN PRN PRN Reason: NAUSEA/VOMITING Senna/Docusate Sodium (Senna/Docusate Sodium 1 Tablet) 2 tablet PO BID PRN PRN PRN Reason: Constipation Sodium Chloride (0.9% Saline Lock 10 Ml Syringe) 10 - 40 ml IV UD PRN PRN Reason: SALINE FLUSH Last Admin: 01/09/21 23:31 Dose: 10 ml Documented by: Sucralfate (Sucralfate 1 Gm Tablet) 1 gm PO [id number] [facility] Last Admin: 01/11/21 06:18 Dose: 1 gm Documented by: STROKE Vital Signs/Narrative: Vital Signs Pulse 01/11/21 07:00 94 Medical Necessity - Tobacco Use Smoking Status: Never smoker Assessment/Plan All Active Problems (Last Reviewed 01/09/21 @ 01:[address] Jose Rivera MD) Abdominal pain (Acute) Nausea and vomiting (Acute) Gastritis (Acute) History of coronary artery stent placement (Resolved 04/07/19) History of ST elevation myocardial infarction (STEMI) (Resolved 04/07/19) Patient is a 75-year-old lady presenting with abdominal discomfort with associated nausea and vertigo 1. Suspected gastritis ?Admitted to regular nursing floor treated symptomatically with PPI and antiemetics. Patient apparently had EGD performed in August 2020 which demonstrated prepyloric ulcer. Carafate was therefore added to her treatment regimen 2. Acute vertigo ?Patient being treated symptomatically with meclizine plan was for patient to undergo an MRI of the brain however patient has a loop recorder MRI could therefore not be ordered 3. Acute renal insufficiency ?Improved with rehydration 4. Chronic diastolic congestive heart failure ?Patient has known EF of 55% her diuretics were held in view of slightly impaired kidney function on admission 5. Paroxysmal A. fib 6. Hypertension - Blood pressure controlled, home medications continued with dose adjustment as needed 7. Dyslipidemia -Patient is on statin therapy, continued at home dose 8. Sarcoidosis ?Patient is on prednisone 9. Rheumatoid arthritis ?Again on prednisone 10. GERD ?Patient on PPI 11. DVT prophylaxis -Heparin Inpatient E&M: [id number] [facility] Hosp L2
[2021-01-11] MEDS: Aspirin E.C. 81 MG Tablet PO (09:25)
[2021-01-11] MEDS: Potassium Chloride Oral Tablet 20 MEQ PO (09:25)
[2021-01-11] MEDS: predniSONE 5 MG Tablet PO (09:25)
[2021-01-11] MEDS: Heparin Injection (Vial) 5,000 UNIT/ML VIAL 5000 UNIT SC ×2 (09:25→20:52)
[2021-01-11] MEDS: Pantoprazole Sodium 40 MG Tablet PO (09:25)
[2021-01-11] MEDS: Meclizine HCl 25 MG Tablet PO ×3 (10:02→20:53)
[2021-01-11] MEDS: 0.9% Saline Lock 10 ML Syringe IV ×3 (10:02→20:55)
[2021-01-11] MEDS: Ondansetron 4 MG/2 ML Vial 8 MG IV ×2 (10:03→18:38)
[2021-01-11 11:16] LABS: Bedside Glucose 114 mg/dL (70-110)
--- NOTE | 2021-01-11 12:55 | MRI_ITS ---
We are attempting to reach an attending provider to discuss findings. An addendum with communication details will be sent when the communication is complete. STUDY: MRI BRAIN WITHOUT CONTRAST REASON FOR EXAM: Female, 75 years old. vertigo TECHNIQUE: Standardized multiplanar fat and water weighted pulse sequences were obtained. COMPARISON: CT of the brain 08/14/2019 FINDINGS: Mild atrophy and moderate periventricular white matter ischemic change without mass effect or restricted diffusion. There is diffuse gliosis in left inferior cerebellar hemisphere extending into the inferior cerebellar peduncle and medullary demonstrating restricted diffusion consistent with acute ischemic infarction. There is mass effect upon the fourth ventricle but no evidence for midline shift or obstructive hydrocephalus Normal bilateral basal ganglia. Normal thalami. There is no extra-axial fluid accumulation. Normal flow voids within the major intracranial circulation suggesting patency by spin echo criteria. Normal sella turcica, pituitary gland, infundibular stalk, optic chiasm and hypothalamus. Normal tectal plate and pineal gland. Normal midbrain, yany and medulla. Normal cerebellum. Normal basal cisterns. Normal bilateral temporal bones. Normal bilateral internal auditory canals. Postsurgical changes of the orbits.. Normal visualized paranasal sinuses. Normal calvarium and skull base. Normal visualized soft tissue structures. Normal visualized upper cervical spine. MRI/Brain without Contrast IMPRESSION: Acute ischemic infarction in left cerebellar hemisphere Moderate periventricular white matter ischemic change without evidence for acute infarct. Electronically Signed: Major Carmona MD at 20:58 EDT , Service support ,
--- NOTE | 2021-01-11 13:30 | NURSING ---
MRI paperwork completed with pt and . Paperwork faxed to MRI.
[2021-01-11] MEDS: Metoprolol Tartrate 50 MG Tablet PO ×2 (14:58→20:54)
[2021-01-11 18:41] LABS: Bedside Glucose 138 mg/dL (70-110)
--- NOTE | 2021-01-11 19:10 | NURSING ---
Pt off floor for MRI
[2021-01-11] MEDS: Atorvastatin Calcium 40 MG Tablet PO (20:53)
--- NOTE | 2021-01-11 21:39 | PN_ITS ---
Progress Note Received call from Rupesh LITTLEJOHN on [facility] with critical report for MRI. MRI report finding as follows: Acute ischemic infarction in left cerebellar hemisphere. Moderate periventricular white matter ischemic change without evidence for acute infarct. Patient received brain MRI earlier this afternoon following confirmation of patient's loop recorder having been removed December 29, 2020. Patient had originally presented with intractable nausea, vertigo, and double vision. Patient transferred to PCU for NIH and vital sign monitoring. Due to unknown occurrence of CVA patient not a candidate for TPA at this time. STROKE Vital Signs/Narrative: Vital Signs Temp Pulse Resp BP Pulse Ox 01/11/21 20:54 79 01/11/21 20:48 97.7 F L 79 17 141/72 H 95 01/11/21 19:00 96 01/11/21 18:00 99
--- NOTE | 2021-01-11 22:23 | NURSING ---
pt being transferred to pcu at this time d/t MRI findings. Patient , Geraldo, made aware of transfer.
--- NOTE | 2021-01-11 22:30 | NURSING ---
Report called to Faye ariza RN on PCU. Updated on pt history, admission, and new MRI results. psychometrist called pt's to update him on same as well as new room number.
[2021-01-11 23:06] LABS: Bedside Glucose 126 mg/dL (70-110)
[2021-01-12] VITALS (11 sets, daily range): BP systolic 112–160; BP diastolic 60–104; PULSE 70–104; RESP 14–18; TEMP 36.1–36.7; O2SAT 93–96; BMI 34.9
[2021-01-12] MEDS: 0.9% Normal Saline 1,000 ML 75 ML IV (03:07)
[2021-01-12] MEDS: Acetaminophen 325 MG Tablet 650 MG PO ×2 (04:03→10:39)
[2021-01-12] MEDS: Meclizine HCl 25 MG Tablet PO ×2 (06:17→13:42)
[2021-01-12] MEDS: Sucralfate 1 GM Tablet PO ×2 (06:17→10:39)
[2021-01-12 06:25] LABS: Bedside Glucose 107 mg/dL (70-110)
--- NOTE | 2021-01-12 06:37 | NURSING ---
patient took morning pills and coughed. 02 95% on ra denies any sob. still complaining of a headache states it is unchanged from Monday states it has been a level 10 since then.
[2021-01-12 06:59] LABS: Hematocrit 47.2 % (37-47); Hemoglobin 15.2 g/dL (12.0-15.0); Mean Corp Hgb Conc 32.2 g/dL (32-36); Mean Corpuscular Hgb 30.9 pg (27.0-32.0); Mean Corpuscular Volume 95.9 fL (81-99); Mean Platelet Vol. 11.4 fl (6.2-12.0); Platelet Count 109 K/mm3 (150-450); RBC Distribution Width CV 15.8 % (11.6-14.6); RBC Distribution Width SD 55.7 fl (35.1-43.9); Red Blood Count 4.92 M/mm3 (4.2-5.4); White Blood Count 10.6 K/mm3 (4.4-11.0)
--- NOTE | 2021-01-12 07:21 | TELEMED_ITS ---
[facility] Telemed has confirmed receipt of a request for visit. This document confirms receipt of the order initiating the consult. To find the results of the consultation, please view the patient's reports for the scanned Telemed Consult.
--- NOTE | 2021-01-12 07:23 | CT_ITS ---
STUDY: CTA HEAD AND NECK WITH CONTRAST REASON FOR EXAM: Female, 75 years old. cva RADIATION DOSAGE (If Supplied By Facility): CTDIvol = ( 33.58 ) mGy, DLP = ( 1415.04 ) mGycm TECHNIQUE: CT angiography was performed with a multi-detector CT scanner. Data acquisition was obtained from the skull base through the vertex following intravenous administration of IV 100mL Isovue-370. MIP images were reconstructed from the axial data set. Post-processing of the angiographic images was performed, with multiplanar reformation and 3D reconstruction. Individualized dose optimization techniques were used for this CT. COMPARISON: No relevant priors. FINDINGS: Normal bilateral petrous carotid arteries. Normal right cavernous carotid artery with a normal supraclinoid bifurcation. Normal left cavernous carotid artery with a normal supraclinoid bifurcation. Normal right A1 segments of the anterior cerebral artery. Normal left A1 segments of the anterior cerebral artery. There is non-visualization of the anterior communicating artery (ACOM). Normal bilateral A2 segments of the anterior cerebral arteries. Normal right M1 and M2 segments of the middle cerebral arteries, with a normal M1 bifurcation. Normal left M1 and M2 segments of the middle cerebral arteries, with a normal M1 bifurcation. Normal right posterior communicating artery (PCOM). Normal left posterior communicating artery (PCOM). Normal bilateral vertebral arteries. Normal basilar artery with a normal basilar bifurcation. The visualized bilateral superior cerebellar (SCA) arteries are normal. Normal bilateral P1, P2 and visualized P3 segments of the posterior cerebral arteries. There is no demonstrated aneurysm of the [place] of [place]. [place]od[place] region within the left cerebellum consistent with underlying infarct. There appears to be diminutive appearance of the left inferior cerebellar artery near the takeoff of the V4 segment though limited in view. AORTIC ARCH: Normal visualized aortic arch. Normal origins of the brachiocephalic, left common carotid, and left subclavian arteries. RIGHT CAROTID ARTERIES: Normal right common carotid artery (CCA). There is mild atherosclerotic plaque formation with minimal narrowing of the right carotid bulb. Normal origin of the right internal carotid (ICA) artery without a hemodynamically significant stenosis. Normal visualized cervical portion of the right internal carotid artery. Normal origin of the right external carotid artery (ECA). LEFT CAROTID ARTERIES: Normal left common carotid artery (CCA). There is moderate atherosclerotic plaque formation with moderate narrowing of the carotid bulb. Normal origin of the left internal carotid (ICA) artery without a hemodynamically significant stenosis. Normal visualized cervical portion of the left internal carotid artery. Normal origin of the left external carotid artery (ECA). VERTEBRAL ARTERIES: Normal bilateral vertebral arteries. CT/CTA Head AND Neck W/ Contrast IMPRESSION: Normal CTA Head and neck with contrast. Electronically Signed: Amadeo Chester DO at 9:20 EDT , Service support ,
--- NOTE | 2021-01-12 07:24 | ECHOD_ITS ---
Reason For Study: TIA/CVA Procedure This was a 2D Doppler, Color Flow transthoracic echocardiogram. The exam was of adequate technical quality. Exam performed portable in patient room. Left Ventricle Normal LV size. Mid cavitary false tendon noted. Segmental dysfunction with 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 (see wall motion). The estimated ejection fraction is 55 %. Unable to assess diastolic dysfunction. Infero-Basal: Hypokinetic. Right Ventricle Normal RV size. Normal systolic function. Atria The left atrium is moderately enlarged. The right atrium is moderately enlarged. No doppler evidence for ASD. Bubble contrast study negative for right to left interatrial shunt. Mitral Valve There is moderate mitral annular calcification. Extension of the mitral annular calcification on the base of the posterior mitral valve leaflet. Mild diffuse mitral valve thickening. The mitral valve chordae are thickened and/or calcified. The mitral papillary muscle appears thickened and/or calcified. Mild-Moderate (1-2+) mitral valve insufficiency. Tricuspid Valve Normal tricuspid valve. Moderately severe (3+) tricuspid valve insufficiency. Right ventricular systolic pressure estimated to be 87 mmHg. Aortic Valve Trisinus/trileaflet aortic valve. Mild diffuse aortic valve thickening. Trivial eccentric aortic valve insufficiency. Pulmonic Valve The pulmonic valve is not well visualized. Mild (1+) pulmonic valve insufficiency. Great Vessels Mildly dilated aortic root. Pericardium/Pleural No pericardial effusion. Medication Performed a rapid injection of agitated mix of 9 cc saline and 1cc air to assess for atrial septal defect. MMode/2D Measurements & Calculations LVIDd: 3.9 cm IVSd: 1.2 cm Ao root diam: 4.1 cm LVIDs: 2.9 cm LVPWd: 1.4 cm RVDd: 3.1 cm FS: 26.3 % LAV(MOD-bp): 68.8 ml LVAd ap4: 17.9 cm2 SV(MOD-sp4): 19.8 ml LAV(MOD-bp) Indexed: 36.8 ml/m2 LVLd ap4: 6.1 cm LAV(MOD-sp2): 72.8 ml EDV(MOD-sp4): 43.8 ml LAV(MOD-sp4): 62.2 ml EDV(sp4-el): 44.7 ml LVAs ap4: 12.8 cm2 LVLs ap4: 5.7 cm ESV(MOD-sp4): 23.9 ml ESV(sp4-el): 24.4 ml EF(MOD-sp4): 45.3 % EF(sp4-el): 45.5 % SV(sp4-el): 20.3 ml LA A4 area: 21.0 cm2 LA dimension(2D): 4.7 cm RA A4 area: 29.0 cm2 Doppler Measurements & Calculations Ao V2 max: 98.7 cm/sec AI max cathy: 356.4 cm/sec LV V1 max: 61.1 cm/sec Ao max P.9 mmHg AI max P.8 mmHg LV V1 max P.5 mmHg AI dec slope: 162.0 cm/sec2 AI P1/2t: 644.3 msec PA V2 max: 92.1 cm/sec PI end-d cathy: 193.8 cm/sec TR max cathy: 456.9 cm/sec TR max P.5 mmHg ECHO/Echo Complete Interpretation Summary Segmental dysfunction with 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 (see wall motion). The estimated ejection fraction is 55 %. Mid cavitary false tendon noted. The left atrium is moderately enlarged. The right atrium is moderately enlarged. There is moderate mitral annular calcification. Extension of the mitral annular calcification on the base of the posterior mitr al valve leaflet. Mild diffuse mitral valve thickening. The mitral valve chordae are thickened and/or calcified. The mitral papillary muscle appears thickened and/or calcified. Mild-Moderate (1-2+) mitral valve insufficiency. Moderately severe (3+) tricuspid valve insufficiency. Mild diffuse aortic valve thickening. Trivial eccentric aortic valve insufficiency. Mild (1+) pulmonic valve insufficiency. Mildly dilated aortic root. Right ventricular systolic pressure estimated to be 87 mmHg c/w severe pulmonar y hypertension. Unable to assess diastolic dysfunction. Bubble contrast study negative for right to left interatrial shunt. Ordering Physician: Josh Magallanes Referring Physician: Aaron Tidwell M.D. Performed By: Aurea Hu, YEE, RVT
[2021-01-12 07:40] LABS: Anion Gap 7 (5-15); BUN 18 mg/dL (7-18); BUN/Creat Ratio 18.2 RATIO (10-20); Calcium,Total 8.9 mg/dL (8.5-10.1); Chloride 108 mmol/L (98-107); Creatinine, Serum 0.99 mg/dL (0.55-1.02); EST Glomerular Filtration Rate 58 mL/min (>60); Est Glom Filt Rate - Afr Amer 71 mL/min (>60); Estimated Creatinine Clearance 39.43 ml/min; Glucose 111 mg/dL (74-106); Magnesium 2.1 mg/dL (1.6-2.6); Potassium 4.1 mmol/L (3.5-5.1); Sodium Level 139 mmol/L (136-145)
--- NOTE | 2021-01-12 09:04 | CASEMGMT ---
SW completed a PHQ 9 with patient as she had a Stroke. Patient was lying in bed and did not open her eyes. She did agree to answer SW's questions. She scored a 4 which indicates minimal depression. Kaylah SALGADO
[2021-01-12] MEDS: Heparin Injection (Vial) 5,000 UNIT/ML VIAL 5000 UNIT SC (09:07)
[2021-01-12] MEDS: Potassium Chloride Oral Tablet 20 MEQ PO (09:07)
[2021-01-12] MEDS: predniSONE 5 MG Tablet PO (09:07)
[2021-01-12] MEDS: Aspirin E.C. 81 MG Tablet PO (09:07)
[2021-01-12] MEDS: Metoprolol Tartrate 50 MG Tablet PO (09:08)
[2021-01-12] MEDS: Pantoprazole Sodium 40 MG Tablet PO (09:08)
--- NOTE | 2021-01-12 09:21 | CASEMGMT ---
According to [facility], the following are in-network tertiary facilities: [facility], [place], [facility], [facility], and . Gunner LITTLEJOHN CM
--- NOTE | 2021-01-12 10:25 | PCM.DC ---
- Discharge Diagnoses Current Active Problems: Current Active and Chronic Problems (Last Reviewed 01/09/21 @ 01:[address] 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 Atherosclerosis of coronary artery of [place] heart without angina pectoris (Chronic) Sick sinus syndrome (Chronic) Secondary pulmonary arterial hypertension (Chronic) Essential (primary) hypertension (Chronic) Lung nodule (Chronic) LYN (obstructive sleep apnea) (Chronic) PAOD (peripheral arterial occlusive disease) (Chronic) Calciphylaxis (Chronic) Sarcoidosis (Chronic) You will use the following diet at home:: No restrictions Allergies/Adverse Reactions: Allergies amlodipine besylate [From Norvasc] Allergy (Verified 01/08/21 20:12) Unknown ceftriaxone Allergy (Verified 01/09/21 09:47) Inflammation of vein doxazosin [From Cardura] Allergy (Verified 01/08/21 20:12) Unknown doxazosin mesylate [From Cardura] Allergy (Verified 01/08/21 20:12) Other VEINS TURNED RED doxycycline Allergy (Verified 01/08/21 20:12) Unknown Pt doesn't remember enalapril maleate [From Vasotec] Allergy (Verified 01/08/21 20:12) Rash enalaprilat dihydrate [From Vasotec] Allergy (Verified 01/08/21 20:12) Rash hydroxyzine HCl [From Vistaril] Allergy (Verified 01/08/21 20:12) Rash hydroxyzine pamoate [From Vistaril] Allergy (Verified 01/08/21 20:12) Rash meperidine HCl [From Demerol] Allergy (Verified 01/08/21 20:12) Rash Sulfa (Sulfonamide Antibiotics) Allergy (Verified 01/08/21 20:12) Hives sulfamethoxazole [From Bactrim] Allergy (Verified 01/08/21 20:12) Hives trimethoprim [From Bactrim] Allergy (Verified 01/08/21 20:12) Hives losartan Adverse Reaction (Unknown, Verified 01/08/21 20:12) Unknown Medications to take at Discharge Aspirin E.C. [Ecotrin] 81 mg PO DAILY@0800 #30 tab 04/09/19 Atorvastatin Calcium [Lipitor] 40 mg PO QHS #30 tab 04/09/19 Furosemide 40 mg PO DAILY 04/30/20 potassium chloride 20 mEq tablet,extended release 20 meq PO DAILY #90 tab 08/31/20 pantoprazole 40 mg tablet,delayed release 40 mg PO DAILY 30 Days #30 tab 11/19/20 metoprolol tartrate 50 mg tablet 50 mg PO BID #180 tab 12/10/20 acarbose 25 mg tablet 25 mg PO TIDCM tablet 12/17/20 prednisone 5 mg tablet 5 mg PO DAILY tablet 12/17/20 spironolactone 25 mg tablet 12.5 mg PO DAILY tablet 12/17/20 Primary Care Physician: Aaron Tidwell MD [Primary Care Provider] - Please follow up with your Primary Care Physician in: after disharge from [facility] Test Results: Test results from this visit will be discussed in further detail at your follow-up appointment, if applicable. Proposed Discharge Date: 01/12/21
--- NOTE | 2021-01-12 10:27 | PCM.DC.SUM ---
Discharge Date and Diagnosis - Problem List Patient Problems: Active and Suspected Problems (Last Reviewed 01/09/21 @ 01:[address] Jose Rivera MD) Abdominal pain (Acute) Nausea and vomiting (Acute) Gastritis (Acute) Date of Admission: 01/08/21 Date of Discharge: 01/12/21 - Primary Discharge Diagnosis Acute Problems: Active Problems (Last Reviewed 01/09/21 @ 01:[address] Jose Rivera MD) Abdominal pain (Acute) Nausea and vomiting (Acute) Gastritis (Acute) - Secondary Discharge Diagnosis Chronic Problems: Chronic Problems (Last Reviewed 01/09/21 @ 01:[address] 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 No demonstrated acute cardiopulmonary process. Electronically Signed: Daniel Roblero MD at 20:59 EDT , Service support , Abdomen/Pelvis CT 01/08/21 22:15 IMPRESSION: 1. Mild bilateral lower lobe pulmonary edema likely due to chronic CHF. 2. Nonobstructing left kidney stones 3. No bowel dilatation or obstruction 4. Mild sigmoid diverticulosis Electronically Signed: Daniel Roblero MD at 23:20 EDT , Service support , Brain MRI 01/11/21 12:55 IMPRESSION: Acute ischemic infarction in left cerebellar hemisphere Moderate periventricular white matter ischemic change without evidence for acute infarct. 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 N.B. : The above information has been verbally conveyed by Major Carmona MD to SHY nova, on 01/11/2021 21:08:12 (ET). Electronically Signed: Major Carmona MD at 20:58 EDT , Service support , Head/Neck CTA 01/12/21 07:23 IMPRESSION: Normal CTA Head and neck with contrast. Electronically Signed: Amadeo Chester DO at 9:20 EDT , Service support , Operations: None Summary of Care Provided: Patient is a 75-year-old lady presenting with abdominal discomfort with associated nausea and vertigo 1. Acute vertigo?2 acute left cerebellar hemisphere acute infarct ?Patient being treated symptomatically with meclizine RI ordered for subsequent evaluation ?MRI demonstrated Acute ischemic infarction in left cerebellar hemisphere Moderate periventricular white matter ischemic change without evidence for acute infarct. Case was discussed with Dr. Lilly with telemetry neurology who recommended transfer to care center with neurosurgery availability since patient with such acute cerebellar infarct can deteriorate rapidly with herniation requiring suboccipital decompression -Patient was accepted for transfer at [facility] 2. Suspected gastritis ?Admitted to regular nursing floor treated symptomatically with PPI and antiemetics. Patient apparently had EGD performed in August 2020 which demonstrated prepyloric ulcer. Carafate was therefore added to her treatment regimen 3. Acute renal insufficiency ?Improved with rehydration 4. Chronic diastolic congestive heart failure ?Patient has known EF of 55% her diuretics were held in view of slightly impaired kidney function on admission 5. Paroxysmal A. fib -Variable rates. Patient was not on systemic anticoagulation apparently as a result of significant risk for falls. 6. Hypertension - Blood pressure controlled, home medications continued with dose adjustment as needed 7. Dyslipidemia -Patient is on statin therapy, continued at home dose 8. Sarcoidosis ?Patient is on prednisone 9. Rheumatoid arthritis ?Again on prednisone 10. GERD ?Patient on PPI 11. DVT prophylaxis -Heparin Patient Problems: Active and Suspected Problems (Last Reviewed 01/09/21 @ 01:[address] Jose Rivera MD) Abdominal pain (Acute) Nausea and vomiting (Acute) Gastritis (Acute) - Physical Exam Vitals/I&O's: Vital Signs Temp Pulse Resp BP Pulse Ox 97.5 F L 94 18 126/60 H 93 01/12/21 09:05 01/12/21 09:08 01/12/21 09:05 01/12/21 09:05 01/12/21 09:05 Oxygen Delivery Method Room Air Weight: 86.5 kg Body Mass Index (BMI) 34.9 Finger Stick Blood Glucose 124 Intake and Output for Last 24 Hours 01/10/21 01/11/21 01/12/21 23:59 23:59 23:59 Intake Total 1123.75 / 1123.75 2915.00 / 2915.00 675 / 675 Output Total 900 / 900 250 / 250 Balance 223.75 / 223.75 2665.00 / 2665.00 675 / 675 General: Alert HEENT: Atraumatic Lungs: Clear to auscultation Cardiovascular: Irregular Rate Laboratory Results 01/11/21 11:05: POC Glucose 114 H 01/11/21 18:33: POC Glucose 138 H 01/11/21 22:56: POC Glucose 126 H 01/12/21 06:15: POC Glucose 107 01/12/21 06:20: WBC 10.6, RBC 4.92, Hgb 15.2 H, Hct 47.2 H, MCV 95.9 D, MCH 30.9, MCHC 32.2, RDW Std Deviation 55.7 H, RDW Coeff of [place]ike 15.8 H, Plt Count 109 L, MPV 11.4 01/12/21 06:20: Sodium 139, Potassium 4.1, Chloride 108 H, Carbon Dioxide 24.0, Anion Gap 7, BUN 18, Creatinine 0.99, Estim Creat Clear Calc 39.43, Est GFR (MDRD) Af Amer 71, Est GFR (MDRD) Non-Af 58 L, BUN/Creatinine Ratio 18.2, Glucose 111 H, Calcium 8.9, Magnesium 2.1 Current Medications Acetaminophen (Acetaminophen 325 Mg Tablet) 650 mg PO Q6H PRN PRN PRN Reason: Pain Score 1-10/Temp > 100.7 F Last Admin: 01/12/21 04:03 Dose: 650 mg Documented by: Aspirin (Aspirin E.C. 81 Mg Tablet) 81 mg PO DAILY@0800 [facility] Last Admin: 01/12/21 09:07 Dose: 81 mg Documented by: Atorvastatin Calcium (Atorvastatin Calcium 40 Mg Tablet) 40 mg PO QHS [facility] Last Admin: 01/11/21 20:53 Dose: 40 mg Documented by: Dextrose (Dextrose 50%-Water 25 Gm/50 Ml Disp.Syrin) 0 gm IV X1 PRN; Protocol PRN Reason: Hypoglycemia Glucagon (Glucagon 1 Mg/Ml Syringe) 1 mg IM .X1 PRN PRN Reason: Hypoglycemia Heparin Sodium (Porcine) (Heparin Injection (Vial) 5,000 Unit/Ml Vial) 5,000 unit SC Q12 [facility] Last Admin: 01/12/21 09:07 Dose: 5,000 unit Documented by: Sodium Chloride () 1,000 mls @ 75 mls/hr IV .[id number] [facility] Last Admin: 01/12/21 03:07 Dose: 75 mls/hr Documented by: Insulin Human Lispro (Insulin Lispro 100 Unit/Ml Insuln.Pen) 0 unit SC Q6 [facility]; Protocol Last Admin: 01/12/21 06:16 Dose: Not Given Documented by: Meclizine HCl (Meclizine Hcl 25 Mg Tablet) 25 mg PO TID [facility] Last Admin: 01/12/21 06:17 Dose: 25 mg Documented by: Melatonin (Melatonin 3 Mg Tablet) 3 mg PO QHS PRN PRN PRN Reason: INSOMNIA Metoprolol Tartrate (Metoprolol Tartrate 50 Mg Tablet) 50 mg PO BID [facility] Last Admin: 01/12/21 09:08 Dose: 50 mg Documented by: Ondansetron HCl (Ondansetron 4 Mg/2 Ml Vial) 8 mg IV Q8H PRN PRN PRN Reason: NAUSEA/VOMITING Last Admin: 01/11/21 18:38 Dose: 8 mg Documented by: Pantoprazole Sodium (Pantoprazole Sodium 40 Mg Tablet) 40 mg PO DAILY [facility] Last Admin: 01/12/21 09:08 Dose: 40 mg Documented by: Potassium Chloride (Potassium Chloride Oral Tablet 20 Meq) 20 meq PO DAILYCM [facility] Last Admin: 01/12/21 09:07 Dose: 20 meq Documented by: [facility]one ([facility] 5 Mg [facility]) [facility] Admin: 01/12/21 09:07 Dose: 5 mg Documented by: Promethazine HCl (Promethazine 25 Mg Tablet) 12.5 mg PO Q6H PRN PRN PRN Reason: NAUSEA/VOMITING Senna/Docusate Sodium (Senna/Docusate Sodium 1 Tablet) 2 tablet PO BID PRN PRN PRN Reason: Constipation Sodium Chloride (0.9% Saline Lock 10 Ml Syringe) 10 - 40 ml IV UD PRN PRN Reason: SALINE FLUSH Last Admin: 01/11/21 20:55 Dose: 10 ml Documented by: Sucralfate (Sucralfate 1 Gm Tablet) 1 gm PO 1HR_ACHS [facility] Last Admin: 01/12/21 06:17 Dose: 1 gm Documented by: Discharge Diet: No Restrictions Discharge Activity: Return to Normal Activity Home Medications: Medications to take at Discharge Aspirin E.C. [Ecotrin] 81 mg PO DAILY@0800 #30 tab 04/09/19 Atorvastatin Calcium [Lipitor] 40 mg PO QHS #30 tab 04/09/19 Furosemide 40 mg PO DAILY 04/30/20 potassium chloride 20 mEq tablet,extended release 20 meq PO DAILY #90 tab 08/31/20 pantoprazole 40 mg tablet,delayed release 40 mg PO DAILY 30 Days #30 tab 11/19/20 metoprolol tartrate 50 mg tablet 50 mg PO BID #180 tab 12/10/20 acarbose 25 mg tablet 25 mg PO TIDCM tablet 12/17/20 prednisone 5 mg tablet 5 mg PO DAILY tablet 12/17/20 spironolactone 25 mg tablet 12.5 mg PO DAILY tablet 12/17/20 Primary Care Physician: Aaron Tidwell MD [Primary Care Provider] - Please follow up with your Primary Care Physician in: after disharge from [facility] Disposition: Acute care Hospital Minutes spent on discharge:: 45 Patient Condition:: Stable Medical Necessity - Tobacco Use Smoking Status: Never smoker Meaningful Use Info Meaningful Use Diagnoses (Choose all that apply): Ischemic CVA - CVA Therapy Assessed for PT,OT and/or ST?: Yes - Ischemic Stroke Antithrombotic order at d/c?: Yes Dx of Atrial fib/flutter?: Yes Anticoagulant at discharge?: No Reason anticoagulant not ordered: Medical Contraindication Statins at discharge?: Yes Primary Dx Acute Ischemic CVA?: Yes IV tPA ordered during stay?: No Reason IV t-PA not ordered: Treatment not Indicated Inpatient E&M: [address]
--- NOTE | 2021-01-12 10:48 | PHA.DC.MR ---
Pharmacy Service has performed discharge medication reconciliation for this patient. The patient's discharge medication list was reviewed for discrepancies and discrepancies were resolved. Home Medications Aspirin E.C. [Ecotrin] 81 mg PO DAILY@0800 #30 tab 04/09/19 Atorvastatin Calcium [Lipitor] 40 mg PO QHS #30 tab 04/09/19 Furosemide 40 mg PO DAILY 04/30/20 potassium chloride 20 mEq tablet,extended release 20 meq PO DAILY #90 tab 08/31/20 pantoprazole 40 mg tablet,delayed release 40 mg PO DAILY 30 Days #30 tab 11/19/20 metoprolol tartrate 50 mg tablet 50 mg PO BID #180 tab 12/10/20 acarbose 25 mg tablet 25 mg PO TIDCM tablet 12/17/20 prednisone 5 mg tablet 5 mg PO DAILY tablet 12/17/20 spironolactone 25 mg tablet 12.5 mg PO DAILY tablet 12/17/20
[2021-01-12 10:55] LABS: Bedside Glucose 95 mg/dL (70-110)
--- NOTE | 2021-01-12 14:51 | NURSING ---
This RN called and gave report to ANNETTA Hanks at [facility].
--- NOTE | 2021-01-12 15:35 | PCM.PN.BLA ---
Progress Note Did receive a call from patient's nurse regarding patient NIH going up from 1-3. Patient was found to be more confused. Did place a call to [facility] since patient has still not received bed assignment at [facility]. Discussed with a neurovascular surgeon on-call at [facility] decision was made to [facility] patient to [facility] for subsequent care. Called patient's daughter updated on events and patient current status STROKE Vital Signs/Narrative: Vital Signs Temp Pulse Resp BP Pulse Ox 01/12/21 14:55 98.1 F 88 15 139/101 H 94 01/12/21 14:15 98.1 F 82 14 138/104 H 94 01/12/21 13:45 98.1 F 81 16 122/78 H 95 01/12/21 13:30 98.1 F 89 18 112/71 93
[2021-01-12 17:02] LABS: Probe Check PASS; Specimen Processing Control PASS
[2021-01-12 20:36] LABS: Bedside Glucose 167 mg/dL (70-110)
== END 2021-01-12 14:55 | disposition short-term general hospital (02) | DRG 65 ==
LOC: ED 22:00 → MS3 01-09 00:04 → PCU 01-11 22:42 → ICU 01-12 14:44
PROVIDERS: Emergency Medicine; Family Medicine; Admitting Provider Hospitalist; Emergency Provider Emergency Medicine; PCP Internal Medicine; Visit Provider Internal Medicine
DX: I63.89 Other cerebral infarction (principal); N17.9 Acute kidney failure, unspecified; I50.32 Chronic diastolic (congestive) heart failure; I13.0 Hypertensive heart and chronic kidney disease with heart failure and stage 1 through stage 4 chronic kidney disease, or unspecified chronic kidney disease; I48.11 Longstanding persistent atrial fibrillation; M06.9 Rheumatoid arthritis, unspecified; D86.9 Sarcoidosis, unspecified; E86.0 Dehydration; K25.9 Gastric ulcer, unspecified as acute or chronic, without hemorrhage or perforation; N18.31 Chronic kidney disease, stage 3a; R74.8 Abnormal levels of other serum enzymes; E78.5 Hyperlipidemia, unspecified; K21.9 Gastro-esophageal reflux disease without esophagitis; I48.0 Paroxysmal atrial fibrillation; I25.10 Atherosclerotic heart disease of native coronary artery without angina pectoris; G47.33 Obstructive sleep apnea (adult) (pediatric); I49.5 Sick sinus syndrome; H53.2 Diplopia; Z95.5 Presence of coronary angioplasty implant and graft; Z86.14 Personal history of Methicillin resistant Staphylococcus aureus infection; Z79.82 Long term (current) use of aspirin; Z82.49 Family history of ischemic heart disease and other diseases of the circulatory system; Z83.3 Family history of diabetes mellitus; Z90.710 Acquired absence of both cervix and uterus; I25.2 Old myocardial infarction
CPT/HCPCS: 36415; 70496; 70498; 70551; 71045; 74176; 80048; 80053; 81001; 82962; 83690; 83735; 84484; 85025; 85027; 87635; 92523; 92610; 93005; 93306; 97110; 97162; 97166; 97530; 97535; 97802; 99285; J7030; J7040; Q9957; Q9967; A4216; J2405; U0002